=== PATIENT | male | born 1965 | race Caucasian/White ===

== ENCOUNTER 2023-09-24 10:28 | Outpatient (OUT) | payer OTHER, SELFPAY | END 2023-09-24 10:29 | disposition home or self-care (01) | LOC: WC 10:28 | PROVIDERS: PCP Nurse Practitioner; Visit Provider Podiatrist Foot & Ankle Surgery | DX: E11.40 Type 2 diabetes mellitus with diabetic neuropathy, unspecified (principal); L84 Corns and callosities | CPT/HCPCS: 11055 ==

== ENCOUNTER 2025-05-02 11:11 | Outpatient (OUT) | payer MEDICARE, SELFPAY ==
--- OUTSIDE RECORDS SUMMARY | 2025-04-24 10:30 | XMS_ITS | Encounter Summary ---
Author Organization [employer] tem Address [id number] [address] 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) Wound, open, foot with complication, left, initial encounter Procedures Triad Iqra Calderón APRN-CNP [address] [place] [address] Phone: tel: fax: Referral ID Status Reason Start Date Expiration Date V isits Requested Visits Authorized [id number] Pending Review 04/24/2025 04/24/2026 1 1 * Misc (Routine) - Pending Review Specialty Diagnoses / Procedures Referred By Contac t Referred To Contact Diagnoses 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) Wound, open, foot with complication, left, initial encounter Procedures Xeroform 4x4 Iqra Calderón APRN-ROSALIA [address] [place] [address] Phone: tel: fax: Referral ID Status Reason Start Date Expiration Date V isits Requested Visits Authorized [id number] Pending Review 04/24/2025 04/24/2026 1 1 Reason for Visit * Reason Comments Wound Check * Consultation (Routine) - Pending Review Specialty Diagnoses / Procedures Referred By Gume t Referred To Contact Wound Care Diagnoses Visit for wound check Lakshmi Figueroa APRN-CNP [address] [place] [address] Phone: tel: fax: [facility] [address] [place] [address] Phone: tel: fax: Referral ID Status Reason Start Date Expiration Date Visits Requested Visits Authorized [id number] Pending Review Specialty Services Required 03/04/2025 03/04/2026 1 1 Encounter Details Date Type Department Care Team (Late st Contact Info) Description 04/24/2025 10:30 AM EDT Office Visit [facility] [address] [place] [id number] Iqra Calderón, GRANT-MARINE MAMMAL TRAINER [address] [place] [address] Diabetic ulcer of right midfoot associated with type 2 diabetes mellitus, with muscle involvement without evidence of necrosis (CMS-HCC) (Primary Dx); 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 Twice a week 02/07/2021 How often do you get together with friends or re latives? Never 02/07/2021 How often do you attend gnosticist or anglican serv ices? Never 02/07/2021 Do you belong to any clubs o r organizations such as gnosticist groups, unions, fraternal or athletic groups, or school groups? No 02/07/2021 How often do you attend meet ings of the clubs or organizations you belong to? Never 02/07/2021 Are you , , di vorced, , never , or living with a partner? 02/07/2021 AUDIT-C Answer Date Recorded Q1: How often do you have a drink containing alc ohol? Monthly or less 02/07/2021 Average Number of Drinks Not on file 021 Q3: How often do you have si x or more drinks on one occasion? Never 02/07/2021 Overall Financial Resource Strain (CARDIA) Answe r Date Recorded How hard is it for you to pa y for the very basics like food, housing, medical care, and heating? Not very hard 02/07/2021 PHQ-2 Answer Date Recorded Total Score 0 02/07/2021 [facility] Answer Date Recorded Do you feel stress - tense, restless, nervous, or anxious, or unable to sleep at night because your mind is troubled all the time - these days? To some extent 02/07/2021 Exercise Vital Sign Answer Date Recorde d On average, how many days pe r week do you engage in moderate to strenuous exercise (like a brisk walk)? 0 days 02/07/2021 On average, how many minutes do you engage in exercise at this level? 0 min 02/07/2021 PRAPARE - Transportation Answer Date Re corded In the past 12 months, has l ack of transportation kept you from medical appointments or from getting medications? No 01/20 In the past 12 months, has l ack of transportation kept you from meetings, work, or from getting things needed for daily living? No 02/07/2021 Childcare Answer Date Recorded Do problems getting child ca re make it difficult for you to work or study? No 02/07/2021 Employment Answer Date Recorded Do you need help finding a l ocal career center and/or a training program? No 02/07/2021 Hunger Screening Answer Date Recorded Within the past 12 months we worried whether our food would run out before we got money to buy more. Never True 03/04/2025 Within the past 12 months th e food we bought just didn't last and we didn't have money to get more. Never True 03/04/2025 Purpose - Life Answer Date Recorded I have a purpose and direction in my life. Agree 02/07/2021 Sex and Gender Information Value Date Recorded Sex Assigned at Not on file Legal Sex Male 11:23 AM EDT Gender Identity Not on file Sexual Orientation Not on file documented as of this encounter Last Filed Vital Signs Vital Sign Reading Time Taken Comments Blood Pressure 116/81 04/24/2025 9:00 AM EDT Pulse 97 04/24/2025 9:00 AM EDT Temperature 36.5 C (97.7 F) 04/24/2025 9:00 AM EDT Respiratory Rate 16 04/24/2025 9:00 AM EDT Oxygen Saturation - - Inhaled Oxygen Concentration - - Weight - - Height - - Body Mass Index - - documented in this encounter Patient Instructions * Patient Instructions* Sulma Humphreys RN - 04/24/2025 10:30 AM EDT Wound Management Treatment Plan Wound Location(s): Right plantar foot HOW TO CARE FOR YOUR WOUND The following should be performed Daily and as needed. STEP 1: Cleanse wound with Soap and water, rinse well, and pat dry. Irrigate or rinse wound with NO IRRIGATION REQUIRED. STEP 2: Soak wound with Hypochlorous Acid (VASHE). For 5-10 minutes. STEP 3: Apply a thin layer of Triad barrier cream to red area around wound. Do not scrub Triad off, just apply a new layer. STEP 4: Cover wound with Xeroform gauze, then ABD (Abdominal) dressing, then Rolled gauze. STEP 6: Secure dressings with Ezequiel Wrap (Elastic Bandage) ACTIVITY: Avoid direct pressure to wound(s) at all times NUTRITION: High protein diet SKIN CARE: SWELLING CONTROL: Elevate legs whenever sitting to level of heart/hips or higher. 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 Wound Care Progress Note Patient: Rashel Rodriguez Jr. Date of : 1965 Chief Complaint: Right foot ulcer, follow up Subjective/HPI: Rashel is a 59 y.o. male who present to [facility] for evaluation of 1 ulcer(s) on theright plantar midfoot. Patient established with wound clinic 03/28/2025. Current wound care includes: Vashe soak, cover with Xeroform, secure with roll gauze. Patient is wearing a right tennis shoe, Patient presents with a prosthetic of the left foot. 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 Eric Stephenson, [facility]. Patient was seen in the emergency room 03/04/2025 for concerns of infection of the right foot. Patient was given antibiotics doxycycline. X-ray of the right foot impression no soft tissue gas or evidence of osteomyelitis. 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 Brooke Measurable wound changes: decrease in wound measurement, remains with heavy callus build up 0.5 cm decrease in RLE calf circumference Patient accompanied by: Self, ambulatory Nutritional screen shows patient does take in three servings of protein per day. Patient does deny fever, chills, sweats or other symptoms of infection. No current ATB ordered. Completed Augmentin as prescribed. Wound culture 03/04/2025 omponent Ref Range & Units (hover) Gram Stain Result 0 WHITE BLOOD CELLS/LPF 0 SQUAMOUS EPITHELIAL CELLS/LPF MANY GRAM POSITIVE COCCI IN CLUSTERS IN CHAINS Culture MANY STREPTOCOCCUS AGALACTIAE (GROUP B) Abnormal MANY STAPHYLOCOCCUS AUREUS METHICILLIN RESISTANT Abnormal MANY STAPHYLOCOCCUS AUREUS METHICILLIN RESISTANT VARIANT Abnormal Today's reported Blood sugar: 334, patient was given a glucometer at last wound care appointment Lab Results Component Value Date HGBA1C 11.3 (H) 05/01/2024 HGBA1C 9.0 (H) 07/20/2023 Contributing comorbid conditions: Poorly controlled diabetes, abnormal gait, history of right and left foot amputation. Labs/Imaging/Cardiovascular: Patient's chart was reviewed for all available supporting documentation, laboratory results and radiographic examination including external notes. Patient Active Problem List Diagnosis Sepsis ([facility]) Diabetic ulcer of right midfoot associated with type 2 diabetes mellitus, with muscle involvement without evidence of necrosis ([facility]) Chronic osteomyelitis of left foot with draining sinus ([facility]) Wound, open, foot with complication, left, initial encounter Charcot's joint of foot, left Diabetes mellitus ([facility]) Hyperlipidemia Osteomyelitis of left foot ([facility]) Ulcer of right foot with fat layer exposed ([facility]) History of transmetatarsal amputation of right foot ([facility]) 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 ([facility]) Unstable ankle, right Past Medical History: Diagnosis Date Acid reflux Anemia Arthritis Cataract right lens implant Charcot's joint 02/2021 left foot Chronic osteomyelitis of foot ([facility]) 02/2021 left/with draining sinus Dental disease poor repair Diabetes mellitus type 2, controlled ([facility]) 1999 Hyperlipidemia Hypertension PICC (peripherally inserted central catheter) flush 02/2021 Visual impairment glasses Past Surgical History: Procedure Laterality Date AMPUTATION SYMES LOWER EXTREMITY Left 04/18/2021 Performed by Ghulam Brooke DPM at [facility] AMPUTATION TOEMID FOOT OSTEOTOMY ACHILLES TENOTOMY Left 02/07/2021 Performed by Ghulam Brooke DPM at [facility] ASPIRATION BONE MARROW BIOPSY BONE MARROW (BONE BIOPSY) Left 03/24/2021 Performed by Ghulam Brooke DPM at [facility] CLOSURE WOUND LOWER EXTREMITY (DELAYED PRIMARY CLOSURE) Left 03/24/2021 Performed by Ghulma Brooke DPM at [facility] DEBRIDEMENT FOOT/ANKLE Left 02/07/2021 Performed by Ghulam Brooke DPM at [facility] EXOSTECTOMY FOOT Right 09/01/2021 Performed by Ghulam Brooke DPM at [facility] PHACO KELMAN I IMPLANT INTRAOCULAR LENS Right 12/28/2019 Performed by Debra Trejo MD at [facility] REMOVAL HARDWARE FOOT/TOE, AND REMOVAL ANTIBIOTIC SPACER Left 03/24/2021 Performed by Ghulam Brooke DPM at [facility] SURGERY TONSILLECTOMY as child Social Drivers of Health Food Insecurity: No Food Insecurity (03/04/2025) Hunger Screening Food Insecurity - Worry: Never True Food Insecurity - Inability: Never True Housing Instability: Low Risk (01/06/2024) Received from [facility] Housing Stability Vital Sign Unable to Pay for Housing in the Last Year: No Number of Places Lived in the Last Year: 1 Unstable Housing in the Last Year: No Transportation Needs: Unmet Transportation Needs (01/06/2024) Received from [facility] PRAPARE - Transportation Lack of Transportation (Medical): Yes Lack of Transportation (Non-Medical): Yes Utility Difficulties: Not on file Interpersonal Safety: Unknown (01/13/2024) Received from [facility] Safety & Environment Fear of Current or Ex-Partner: Not on file Emotionally Abused: Not on file Physically Abused: Not on file Sexually Abused: Not on file Physically or Sexually Abused: Not on file Financial Resource Strain: Low Risk (01/06/2024) Received from [facility] Overall Financial Resource Strain (CARDIA) Difficulty of Paying Living Expenses: Not hard at all Childcare: Low Risk (02/07/2021) Childcare Childcare: No Employment: Low Risk (02/07/2021) Employment Employment: No Purpose - Life: Low Risk (02/07/2021) Purpose - Life Purpose and direction in life: Agree Depression: Not at risk (03/13/2024) Received from [facility] PHQ-2 Patient Health Questionnaire-2 Score: 0 Alcohol Use: Not At Risk (01/06/2024) Received from [facility] AUDIT-C Frequency of Alcohol Consumption: Monthly or less Average Number of Drinks: Patient does not drink Frequency of Binge Drinking: Never Tobacco Use: Low Risk (04/11/2025) Patient History Smoking Tobacco Use: Never Smokeless Tobacco Use: Never Passive Exposure: Not on file Social Connections: Socially Isolated (01/06/2024) Received from [facility] Social Connection and Isolation Panel [NHANES] Frequency of Communication with Friends and Family: Never Frequency of Social Gatherings with Friends and Family: Never Attends Moravian Services: Never Active Member of Clubs or Organizations: Yes Attends Club or Organization Meetings: Never Marital Status: Physical Activity: Inactive (01/06/2024) Received from [facility] Exercise Vital Sign Days of Exercise per Week: 0 days Minutes of Exercise per Session: 0 min Stress: Stress Concern Present (01/06/2024) Received from [facility] [employer] [place] [facility] [employer] [facility] - Occupational Stress Questionnaire Feeling of Stress : Very much Current Outpatient Medications Medication Sig Dispense Refill acetaminophen (TYLENOL) 500 mg tablet Take 2 tablets (1,000 mg total) by mouth every 6 (six) hours as needed Indications: headache. atorvastatin (LIPITOR) 40 mg tablet Take 1 tablet (40 mg total) by mouth daily with breakfast Indications: excessive fat in the blood. dorzolamide (TRUSOPT) 2 % ophthalmic solution Administer 1 drop to the right eye in the morning and1 drop before bedtime. Indications: increased pressure in the eye. hydroCHLOROthiazide (HYDRODIURIL) 12.5 mg tablet Take 1 tablet (12.5 mg total) by mouth daily. insulin aspart U-100 (NovoLOG) 100 unit/mL injection Inject under the skin. insulin glargine (LANTUS) 100 unit/mL injection Inject 0.28 mL (28 Units total) under the skin nightly. insulin lispro (ADMELOG SOLOSTAR U-100 INSULIN) 100 unit/mL insulin pen 70-150 0 units 151-174 2 units 175-199 4 units 200-224 6 units 225-249 8 units 250-274 10 units 275-299 12 units Greater than 300 Administer 14 units and call the provider. 15 mL 0 lisinopriL (PRINIVIL,ZESTRIL) 10 mg tablet Take 1 tablet (10 mg total) by mouth daily with breakfast Indications: high blood pressure. metFORMIN (GLUCOPHAGE) 1000 mg tablet Take 1 tablet (1,000 mg total) by mouth in the morning and 1 tablet (1,000 mg total) in the evening. Take with meals. Indications: type 2 diabetes mellitus. omeprazole (PriLOSEC) 40 mg capsule Take 1 capsule (40 mg total) by mouth in the morning. pantoprazole (PROTONIX) 40 mg EC tablet Take 1 tablet (40 mg total) by mouth in the morning. TRUE METRIX GLUCOSE TEST STRIP strip No current facility-administered medications for this visit. Allergies Allergen Reactions Bee Venom Protein (Honey Bee) Other (See Comments) Local swelling The following portions of the patient's history were reviewed and updated as appropriate: allergies, current medications, past family history, past medical history, past social history, past surgicalhistory, problem list, and medication reconciliation was completed including current medication andpost discharge medication. PAIN: Pain Scale 0/10: 0 Review of Systems Constitutional: Negative. Negative for activity change, appetite change and fever. HENT: Negative. Negative for trouble swallowing. Eyes: Positive for visual disturbance. Respiratory: Negative. Negative for cough, shortness of breath and wheezing. Cardiovascular: Negative. Negative for chest pain, palpitations and leg swelling. Gastrointestinal: Negative. Negative for abdominal distention, nausea and vomiting. Genitourinary: Negative. Negative for dysuria, frequency and urgency. Musculoskeletal: Positive for arthralgias and gait problem. Negative for neck stiffness. Skin: Positive for color change and wound. Neurological: Positive for headaches. Negative for numbness. Objective: Vitals: 04/24/25 0900 BP: 116/81 Pulse: 97 Resp: 16 Temp: 36.5 ??C (97.7 ??F) Physical Exam Vitals and nursing note reviewed. Constitutional: Appearance: He is well-developed. HENT: Head: Normocephalic and atraumatic. Cardiovascular: Rate and Rhythm: Normal rate and regular rhythm. Pulses: Dorsalis pedis pulses are 2+ on the right side. Posterior tibial pulses are 2+ on the right side. Heart sounds: Normal heart sounds. No murmur heard. No gallop. Pulmonary: Effort: Pulmonary effort is normal. Breath sounds: Normal breath sounds. No wheezing or rales. Musculoskeletal: Cervical back: Normal range of motion. Right foot: Decreased range of motion. Left foot: Decreased range of motion. Comments: Unstable right ankle New onset right ankle erythema Feet: Right foot: Skin integrity: Callus and fissure present. Comments: Left foot amputated, prothesis in place Right foot TMA Skin: General: Skin is warm and dry. Neurological: Mental Status: He is alert and oriented to person, place, and time. Wound Assessment: Wound 03/28/25 1 Diabetic Ulcer Foot Right;Plantar (Active) Wound Image Pre debridement Post debridement 04/24/25 1100 Site Assessment Fallon;Red 04/24/25 1100 Ricardo-wound Assessment Callous;Dry 04/24/25 1100 Wound Length (cm) 3.3 cm 04/24/25 1100 Wound Width (cm) 2.8 cm 04/24/25 1100 Wound Surface Area (cm^2) 7.26 cm^2 04/24/25 1100 Wound Depth (cm) 0.2 cm 04/24/25 1100 Wound Volume (cm^3) 0.968 cm^3 04/24/25 1100 Change in Wound Size % 29.99 04/24/25 1100 Drainage Description Sanguineous 04/24/251099 Drainage Amount Small 04/24/25 1100 Debridement Performed? Y 04/24/25 1100 Type of Debridement Sharp to Subcutaneous 04/24/25 1100 Wound Bed Granulation (%) 100% 04/24/25 1000 Discussion: Debridement is the removal of foreign material and/or devitalized tissue until healthy tissue is exposed. Risks, benefits and alternatives were discussed with the patient. We discussed possible complications, including infection and bleeding. Written consent was obtained prior to the procedure. Timeout procedure completed. Goal of debridement includes: removal of devitalized tissue, decrease risk of infection, promote wound healing and prevent further complications. Debridement Performed by: SCOTT Sawyer Authorized by: SCOTT Sawyer Associated wounds: Wound 03/28/25 1 Diabetic Ulcer Foot Right;Plantar Consent: Consent obtained: Verbal and written Consent given by: Patient Risks discussed: Yes Debridement Details: Performed by: OVEN TECHNICIAN Type: Sharp Level: Subcutaneous Tissue, Devitalized tissue and other material debrided: Subcutaneous tissue, fibrin, biofilm and callus Anesthesia administration: topical Anesthesia: EMLA Total Surface Area Debrided cm^2: 7.26 Specimen Taken: None Instrument: Curette Amount of bleeding: Small Bleeding Control: Pressure Response to treatment: Procedure was tolerated well Tissue Applied?: No Assessment/Plan/Education: 1. Diabetic ulcer of right midfoot associated with type 2 diabetes mellitus, with muscle involvement without evidence of necrosis (CMS-HCC) 2. 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 Soak for at least 5 minutes. B) Remove saturated gauze and firmly wipe the wound bed with the soaked gauze. C) After the wound has been cleaned, gently pat dry the wound and ricardo wound skin are and apply dressing as ordered. Cover wound including callus with Xeroform Cover with ABD pad for protection Secure with roll gauze Change daily Recommend patient continue to follow with podiatry Referral to [facility]PC for properly fitting and off-loading shoe to right foot Patient instructed in diabetic foot ulcer care to right and foot. Patient verbalize ability to perform wound care. Patient verbalized understanding. We will continue to follow closely to avoid any complications or infection. Our short term goal is wound compliance. Our jail goal is wound closure. The patient was taught to watch for S/S of infection (redness, pus, pain, increased swelling, chills or fever) and to call the PCP or wound care clinic if such occurs. The patient was educated on offloading the area by avoiding direct pressure to the wound bed. Education as well as the pathophysiology of the disease process was provided on infection, edema, necrotic tissue and its relationship tononhealing wounds. Education was also provided on treatment plan. Patient verbalized understanding. Follow up wound clinic in 2 weeks. Instructed to contact wound clinic/PCP or ER should symptoms worsen. Total time spent was 20 minutes: Preparing to see the patient (e.g., review of tests) Obtaining and/or reviewing separately obtained history Performing a medically appropriate examination and/or evaluation Counseling and educating the patient/family/caregiver Ordering medications, tests, or procedures Documenting clinical information in the electronic or other health record - SCOTT SAWYER 04/24/25 11:51 AM Iqra Calderón APRN, ROSALIA, ALBARO, NAVNEET [facility]:[phone] SCOTT Sawyer 03/28/25 1311 SCOTT Sawyer 03/28/25 1619 SCOTT Sawyer 04/11/25 1218 SCOTT Sawyer 04/24/25 1202 documented in this encounter Plan of Treatment Upcoming Encounters Date Type Department Care Team (Late st Contact Info) Description 05/10/2025 9:30 AM EDT Clinical Support [facility] [address] [place] [address] [place] [address] Jessee Molina, [address] [place] [address], [facility], [place] [address] documented as of this encounter Goals Goal Patient Goal Type Associated Problems Recent Progress Patient-Stated? 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 us Iqra CHAVEZ NURSING COMMUNICATION Fin al Result Performing Organization Address [facility] de Phone Number MANUALLY TRANSCRIBED RESULTS * Xeroform 4x4 (04/24/2025 11:26 AM EDT) Narrative MANUALLY TRANSCRIBED RESULTS - 04/24/2025 11:26 AM EDT APPLIED IN CLINIC TODAY. us Iqra CHAVEZ NURSING COMMUNICATION Fin al Result Performing Organization Address [facility] Co de Phone Number MANUALLY TRANSCRIBED RESULTS * Debridement (04/24/2025 10:30 AM EDT) Narrative MANUALLY TRANSCRIBED RESULTS - 04/24/2025 10:30 AM EDT SCOTT Sawyer 04/24/2025 12:02 PM Debridement Performed by: SCOTT Sawyer Authorized by: SCOTT Sawyer Associated wounds: Wound 03/28/25 1 Diabetic Ulcer Foot Right;Plantar Consent: Consent obtained: Verbal and written Consent given by: Patient Risks discussed: Yes Debridement Details: Performed by: OVEN TECHNICIAN Type: Sharp Level: Subcutaneous Tissue, Devitalized tissue and other material debrided: Subcutaneous tissue, fibrin, biofilm and callus Anesthesia administration: topical Anesthesia: EMLA Total Surface Area Debrided cm^2: 7.26 Specimen Taken: None Instrument: Curette Amount of bleeding: Small Bleeding Control: Pressure Response to treatment: Procedure was tolerated well Tissue Applied?: No Iqra Calderón APRN-ROSALIA PROCEDURE/MINOR SURGICAL ORDERABLES Final Result MANUALLY TRANSCRIBED RESULTS documented in this encounter Visit Diagnoses Diagnosis Diabetic ulcer of right midfoot associated with type 2 diabetes mellitus, 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
--- OUTSIDE RECORDS SUMMARY | 2025-04-24 23:59 | XMS_ITS | Encounter Summary ---
Author Organization [facility] Address [facility] [place] [address] Care Team Providers Care Internal Affairs Investigator Name Role Phone Unavailable Primary Care Provider Unavailabl e Source Comments In the event this information is protected by the Federal Confidentiality of Alcohol and Drug AbusePatient Records regulations: The Federal rules restrict any use of the information to criminally investigate or prosecute any alcohol or drug abuse patient.[facility] Encounter Details Date Type Department Care Team (Late st Contact Info) Description 04/25/2025 11:59 PM EDT Anesthesia Event [facility] [place] [id number] Ronaldo Draper DO [place], [place] [id number] Anesthesia Record Procedure Summary Procedure Name Responsible Anesthesiologist Anesthesia Start Time Anesthesia Stop Time EGD Events No events on file. Meds * Agents No agents on file. * Blood No blood administrations on file. Lines, Drains, and Airways No LDAs on file. documented in this encounter Social History Tobacco Use Types Packs/Day Years Used Date Smoking Tobacco: Never Passive Smoke Exposure: Never Smokeless Tobacco: Never Area Deprivation Index Answer Date Diego rded National Score (1-100), lower number is lower ri 87 10/24/2024 State Score (1-10), lower number is lower risk 8 10/24/2024 Data from: https://www.neighborhoodatlas.medicine.[facility].edu/. Last address used for calculation [address] 10/24/2024 Sex and Gender Information Value Date Recorded Sex Assigned at Not on file Legal Sex Male 3:23 PM EDT Gender Identity Not on file Sexual Orientation Not on file documented as of this encounter Plan of Treatment Not on file documented as of this encounter Visit Diagnoses Not on filedocumented in this encounter
--- OUTSIDE RECORDS SUMMARY | 2025-04-26 14:00 | XMS_ITS | Encounter Summary ---
Author Organization [employer] [facility] tem Address [id number] [address] [place] [address] Care Team Providers Care Electro Mechanical Technician Name Role Phone Jessee Molina DO Primary Care Provider [phone] Reason for Visit * Reason Comments Establish Care * Consultation (Routine) - Pending Review Specialty Diagnoses / Procedures Referred By Gume shelley Referred To Contact Internal Medicine Diagnoses Visit for wound check Hyperglycemia Lakshmi Figueroa, BUCKLE SEWER MACHINE-ORACLE BUSINESS ANALYST [address] [place] [address] Phone: tel: fax: Vahe Solares MD [address] [place] [id number] Phone: tel: fax: Referral ID Status Reason Start Date Expiration Date Visits Requested Visits Authorized [id number] Pending Review Specialty Services Required 03/04/2025 03/04/2026 1 1 Encounter Details Date Type Department Care Team (Late st Contact Info) Description 04/26/2025 2:00 PM EDT Office Visit [facility] [address] [place] [address] [place] [address] Jessee Molina DO [address] [place] [address], [facility], [facility] [place] [address] Benign essential HTN (Primary Dx); Type 2 diabetes mellitus with foot ulcer, with long-term current use of insulin ([facility]); Chronic midline low back pain without sciatica; Fatty liver disease, nonalcoholic; Visit for wound check; Hyperglycemia; Gastroesophageal reflux disease, unspecified whether esophagitis present Social History Tobacco Use Types Packs/Day Years Used Date Smoking Tobacco: Never Smokeless Tobacco: Never Alcohol Use Standard Drinks/Week Comments Not Currently 0 (1 standard drink = 0.6 oz pur e alcohol) quit 2005 Social Connection and Isolation Panel [NHANES] A nswer Date Recorded In a typical week, how many times do you talk on the phone with family, friends, or neighbors? Twice a week 02/07/2021 How often do you get together with friends or re latives? Never 02/07/2021 How often do you attend latter-day or hinduism serv ices? Never 02/07/2021 Do you belong to any clubs o r organizations such as latter-day groups, unions, fraternal or athletic groups, or [...] 02/07/2021 PHQ-2 Answer Date Recorded Total Score 7 04/26/2025 [place] of Occupat ional Health - Occupational Stress Questionnaire Answer Date Recorded [...] Recorded Do you need help finding a [employer] center and/or a training program? No 02/07/2021 Hunger Screening Answer Date Recorded Within the past 12 months we worried whether our food would run out before we got money to buy more. Never True 04/26/2025 Within the past 12 months th e food we bought just didn't last and we didn't have money to get more. Never True 04/26/2025 Purpose - Life Answer Date Recorded I have a purpose and direction in my life. Agree 02/07/2021 Sex and Gender Information Value Date Recorded Sex Assigned at Not on file Legal Sex Male 11:23 AM EDT Gender Identity Not on file Sexual Orientation Not on file documented as of this encounter Last Filed Vital Signs Vital Sign Reading Time Taken Comments Blood Pressure 118/82 04/26/2025 2:12 PM EDT Pulse 95 04/26/2025 2:12 PM EDT Temperature 36.7 C (98.1 F) 04/26/2025 2:12 PM EDT Respiratory Rate - - Oxygen Saturation 96% 04/26/2025 2:12 PM EDT Inhaled Oxygen Concentration - - Weight 115.2 kg (254 lb) 04/26/2025 2:12 PM EDT Height 174 cm (5' 8.5 ) 04/26/2025 2:12 PM EDT Body Mass Index 38.05 04/26/2025 2:12 PM EDT documented in this encounter Patient Instructions * Patient Instructions* Jessee Molina, DO - 04/26/2025 2:00 PM EDT Get blood work and x-ray of lumbar spine completed before next visit. Follow instructions for medications. Check blood sugars up to 4 times per day and use short acting insulin as directed. Take Lantus 30 units daily documented in this encounter Progress Notes * Jessee Molina DO - 04/26/2025 2:00 PM EDT Images from the original note were not included. [facility]LY [facility], [facility] [facility] [place] [address] Patient: Rashel Rodriguez Jr. Date of : 1965 Encounter Date: 04/26/2025 Subjective: Chief Complaint Chief Complaint Patient presents with Establish Care History of Present Illness Rashel Rodriguez Jr. is a 59 y.o. male, NEW patient, that presents to the office to establish care History provided by patient Diabetes He presents for his follow-up diabetic visit. He has type 2 (Diagnosed about 30 years ago) diabetesmellitus. Disease course: He reports that last HbA1c was 9.6%. Current diabetic treatments: Currenttreatment: Novolin N 36 units twice daily. Home blood sugar record trend: Has been unable to test blood sugars as he does not have test strips. Back Pain This is a chronic (Has been present since elementary school after being jumed on by larger kid.) problem. The pain is present in the lumbar spine. Radiates to: Radiates to gluteal area bilaterally. Stiffness is present: Denies any stiffness in lower back. Pertinent negatives include no bladder incontinence, bowel incontinence, leg pain (Occasionally will have discomfort in leg when he is not ableto apply pressure without weakness develops), numbness, perianal numbness or tingling. (He states that having to sit regularly with walking as it now takes him 2 hours to mow his grass where previously took 20 minutes. ) Review of Systems Review of Systems Gastrointestinal: Negative for bowel incontinence. Waking up in the morning with vomiting of undigested food and/or liquids and occasionally with dry heaves Genitourinary: Negative for bladder incontinence. Musculoskeletal: Positive for back pain. Neurological: Negative for tingling and numbness. Vital Signs BP 118/82 (BP Site: Left Arm, BP Postition: Sitting) Pulse 95 Temp 36.7 ??C (98.1 ??F) (Oral) Ht 174 cm (5' 8.5 ) Wt 115.2 kg (254 lb) SpO2 96% BMI 38.05 kg/m?? Physical Exam Physical Exam Cardiovascular: Rate and Rhythm: Normal rate and regular rhythm. Pulses: Posterior tibial pulses are 2+ on the right side. Heart sounds: No murmur heard. Pulmonary: Effort: No accessory muscle usage or respiratory distress. Breath sounds: Normal breath sounds. No decreased breath sounds, wheezing, rhonchi or rales. Musculoskeletal: Right lower leg: No edema. Right foot: Deformity (amputation of toes on right foot) present. Left Lower Extremity: Left leg is amputated below knee. Past Medical, Family, Surgery and Social History Past Medical History: Diagnosis Date Acid reflux Anemia Arthritis Cataract right lens implant Charcot's joint 02/2021 left foot Chronic osteomyelitis of foot ([facility] 02/2021 left/with draining sinus Dental disease poor repair Diabetes mellitus type 2, controlled ([facility]) 1999 Hyperlipidemia Hypertension PICC (peripherally inserted central catheter) flush 02/2021 Visual impairment glasses Past Surgical History: Procedure Laterality Date AMPUTATION SYMES LOWER EXTREMITY Left 04/18/2021 Performed by Ghulam Brooke DPM at [facility] AMPUTATION TOEMID FOOT OSTEOTOMY ACHILLES TENOTOMY Left 02/07/2021 Performed by Ghulam Brooke DPM at [facility] ASPIRATION BONE MARROW BIOPSY BONE MARROW (BONE BIOPSY) Left 03/24/2021 Performed by Ghulam Brooke DPM at [facility] CLOSURE WOUND LOWER EXTREMITY (DELAYED PRIMARY CLOSURE) Left 03/24/2021 Performed by Ghulam Brooke DPM at [facility] DEBRIDEMENT FOOT/ANKLE Left 02/07/2021 Performed by Ghulam Brooke DPM at [facility] EXOSTECTOMY FOOT Right 09/01/2021 Performed by Ghulam Brooke DPM at [facility] PHACO KELMAN I IMPLANT INTRAOCULAR LENS Right 12/28/2019 Performed by Debra Trejo MD at [facility] REMOVAL HARDWARE FOOT/TOE, AND REMOVAL ANTIBIOTIC SPACER Left 03/24/2021 Performed by Ghulam Brooke DPM at [facility] TONSILLECTOMY as child Family History Problem Relation Age of Onset Diabetes Mother Diabetes Father Hearing loss Father Stroke Father Coronary artery disease Father Diabetes Sister Diabetes Sister Cancer Maternal Grandfather Anesthesia problems Neg Hx Bleeding Disorder Neg Hx Clotting disorder Neg Hx Prostate cancer Neg Hx Colon cancer Neg Hx Social History Socioeconomic History Marital status: Single Spouse name: Not on file Number of children: Not on file Years of education: Not on file Highest education level: Not on file Occupational History Not on file Tobacco Use Smoking status: Never Smokeless tobacco: Never Vaping Use Vaping status: Never Used Substance and Sexual Activity Alcohol use: Not Currently Comment: quit 2006 Drug use: Never Sexual activity: Defer Other Topics Concern Not on file Social History Narrative Lives alone in a one story home with five steps into the home and 10 to the basement. Worked at [employer]. Now disabled Social Drivers of Health Financial Resource Strain: Low Risk (01/06/2024) Received from [facility] Overall Financial Resource Strain (CARDIA) Difficulty of Paying Living Expenses: Not hard at all Food Insecurity: No Food Insecurity (04/26/2025) Hunger Screening Food Insecurity - Worry: Never True Food Insecurity - Inability: Never True Transportation Needs: Unmet Transportation Needs (01/06/2024) Received from [facility] PRAPARE - Transportation Lack of Transportation (Medical): Yes Lack of Transportation (Non-Medical): Yes Physical Activity: Inactive (01/06/2024) Received from [facility] Exercise Vital Sign Days of Exercise per Week: 0 days Minutes of Exercise per Session: 0 min Stress: Stress Concern Present (01/06/2024) Received from [facility] [place] [facility] [employer] [facility] - Occupational Stress Questionnaire Feeling of Stress : Very much Social Connections: Socially Isolated (01/06/2024) Received from [facility] Social Connection and Isolation Panel [NHANES] Frequency of Communication with Friends and Family: Never Frequency of Social Gatherings with Friends and Family: Never Attends Temple Services: Never Active Member of Clubs or Organizations: Yes Attends Club or Organization Meetings: Never Marital Status: Interpersonal Safety: Unknown (01/13/2024) Received from [facility] [place] [facility] Fear of Current or Ex-Partner: Not on file Emotionally Abused: Not on file Physically Abused: Not on file Sexually Abused: Not on file Physically or Sexually Abused: Not on file Housing Instability: Low Risk (01/06/2024) Received from [facility] Housing Stability Vital Sign Unable to Pay for Housing in the Last Year: No Number of Places Lived in the Last Year: 1 Unstable Housing in the Last Year: No Allergies and Current Medications Allergies Allergen Reactions Bee Venom Protein (Honey Bee) Other (See Comments) Local swelling Current Outpatient Medications on File Prior to Visit Medication Sig cholecalciferol, vitamin D3, 2,000 units capsule Take 1 capsule (2,000 Units total) by mouth in themorning. dorzolamide (TRUSOPT) 2 % ophthalmic solution Administer 1 drop to the right eye in the morning and1 drop before bedtime. Indications: increased pressure in the eye. latanoprost (XALATAN) 0.005 % ophthalmic solution Administer 1 drop into the left eye once daily atbedtime. INSTILL 1 DROP INTO LEFT EYE AT BEDTIME No current facility-administered medications on file prior to visit. Labs and Imaging Lab Results Component Value Date WBC 10.1 03/04/2025 HGB 13.7 03/04/2025 HCT 40.0 03/04/2025 PLT 334 03/04/2025 CHOL 152 05/01/2024 TRIG 291 (H) 05/01/2024 HDL 32 (L) 05/01/2024 ALT 15 03/04/2025 AST 18 03/04/2025 K 3.6 03/04/2025 CL 102 03/04/2025 CREATININE 1.20 03/04/2025 BUN 18 03/04/2025 CO2 23 03/04/2025 TSH 1.40 01/28/2022 INR 1.3 (H) 11/05/2020 HGBA1C 11.3 (H) 05/01/2024 MICROALBUR 1.8 05/01/2024 X-ray foot right minimum 3 views XR FOOT RT MIN 3 VWS CLINICAL HISTORY: COMPARISON: 05/20/2021 obtained. FINDINGS: Transmetatarsal amputation. No significant swelling of the stomach no soft tissue air no radio opaque stenosis seen or periosteal reaction to suggest osteomyelitis. Calcaneal spurring. Essentially unchanged since previous exam IMPRESSION: * Transmetatarsal amputation. Unchanged since prior study. No soft tissue gas or plain radiographicchanges of osteomyelitis Finalized by Du Hawthorne MD on 03/04/2025 10:59 AM Assessment/Plan: 1. Type 2 diabetes mellitus with foot ulcer, with long-term current use of insulin ([facility]) - TRUE METRIX GLUCOSE TEST STRIP strip; 1 strip by other route 4 (four) times a day before meals and nightly. Dispense: 200 strip; Refill: 5 - insulin glargine (LANTUS) 100 unit/mL injection; Inject 0.3 mL (30 Units total) under the skin nightly. Dispense: 10 mL; Refill: 1 - lisinopriL (PRINIVIL,ZESTRIL) 10 mg tablet; Take 1 tablet (10 mg total) by mouth daily with breakfast for 90 days Indications: high blood pressure. Dispense: 90 tablet; Refill: 0 - insulin lispro (ADMELOG SOLOSTAR U-100 INSULIN) 100 unit/mL insulin pen; 70- 150 0 units 151-174 2units 175-199 4 units 200-224 6 units 225-249 8 units 250- 274 10 units 275-299 12 units 300-350 14 units >350 16 units and call provider Dispense: 15 mL; Refill: 0 - atorvastatin (LIPITOR) 40 mg tablet; Take 1 tablet (40 mg total) by mouth daily with breakfast for 360 days Indications: excessive fat in the blood. Dispense: 90 tablet; Refill: 3 - pen needle, diabetic 29 gauge x 15/32 needle; 1 Pen Needle by miscellaneous route in the morningand 1 Pen Needle at noon and 1 Pen Needle in the evening and 1 Pen Needle before bedtime. Dispense:100 each; Refill: 3 - Comprehensive metabolic panel; Future - CBC auto differential; Future - Hemoglobin A1c; Future 2. Chronic midline low back pain without sciatica - X-ray spine lumbar complete including flexion and extension 6+ views; Future 3. Benign essential HTN - lisinopriL (PRINIVIL,ZESTRIL) 10 mg tablet; Take 1 tablet (10 mg total) by mouth daily with breakfast for 90 days Indications: high blood pressure. Dispense: 90 tablet; Refill: 0 - hydroCHLOROthiazide (HYDRODIURIL) 12.5 mg tablet; Take 1 tablet (12.5 mg total) by mouth daily. Dispense: 90 tablet; Refill: 0 4. Fatty liver disease, nonalcoholic - Comprehensive metabolic panel; Future 5. Visit for wound check - Ambulatory referral to Internal Medicine (Non-[facility]) 6. Hyperglycemia - Ambulatory referral to Internal Medicine (Non-[facility]) 7. Gastroesophageal reflux disease, unspecified whether esophagitis present - pantoprazole (PROTONIX) 40 mg EC tablet; Take 1 tablet (40 mg total) by mouth in the morning. Dispense: 90 tablet; Refill: 0 Fatty liver disease, nonalcoholic Ordered lab work including comprehensive metabolic panel to evaluate for level of transaminase elevation Benign essential HTN Blood pressure today in normal range. Patient denies any symptoms. Continue with hydrochlorothiazide 12.5 mg daily, lisinopril 10 mg daily. Diabetes mellitus ([facility]) Last hemoglobin A1c from April 01, 2025 was 11%. Continue with insulin glargine 30 units nightly, insulin lispro sliding scale coverage before meals. Monitor blood sugars before meals. Chronic midline low back pain without sciatica Ordered x-rays of lumbar spine 6 views including flexion and extension views. Patient Instructions Get blood work and x-ray of lumbar spine completed before next visit. Follow instructions for medications. Check blood sugars up to 4 times per day and use short acting insulin as directed. Take Lantus 30 units daily Follow-up: 1 to 2 weeks diabetes/back pain follow-up - Jessee Molina DO 04/27/25 9:18 PM documented in this encounter Miscellaneous Notes * Assessment & Plan Note - Jessee Molina DO - 04/27/2025 9:18 PM EDT Associated Problem(s): Chronic midline low back pain without sciatica Ordered x-rays of lumbar spine 6 views including flexion and extension views. * Assessment & Plan Note - Jessee Molina DO - 04/27/2025 9:16 PM EDT Associated Problem(s): Diabetes mellitus ([facility]) Last hemoglobin A1c from April 01, 2025 was 11%. Continue with insulin glargine 30 units nightly, insulin lispro sliding scale coverage before meals. Monitor blood sugars before meals. * Assessment & Plan Note - Jessee Molina DO - 04/27/2025 9:14 PM EDT Associated Problem(s): Benign essential HTN Blood pressure today in normal range. Patient denies any symptoms. Continue with hydrochlorothiazide 12.5 mg daily, lisinopril 10 mg daily. * Assessment & Plan Note - Jessee Molina DO - 04/27/2025 9:13 PM EDT Associated Problem(s): Fatty liver disease, nonalcoholic Ordered lab work including comprehensive metabolic panel to evaluate for level of transaminase elevation documented in this encounter Plan of Treatment Upcoming Encounters Date Type Department Care Team (Late st Contact Info) Description 05/10/2025 9:30 AM EDT Clinical Support [facility] [address] [place] [phone] Jessee Molina DO [address] [facility], [place] [address] Scheduled Orders Name Type Priority Associated Diagnoses Orde r Schedule X-ray spine lumbar complete including flexion and extension 6+ views Imaging Routine Chronic midline low back pain without sciatica Expected: 04/26/2025, Expires: 04/26/2026 Comprehensive metabolic panel Lab Routine Type 2 diabetes mellitus with foot ulcer, with long-term current use of insulin ([facility]) Fatty liver disease, nonalcoholic 1 Occurrences starting 04/26/2025 until 04/26/2026 CBC auto differential Lab Routine Type 2 diabetes mellitus with foot ulcer, with long-term current use of insulin ([facility]) 1 Occurrences starting 04/26/2025 until 04/26/2026 Hemoglobin A1c Lab Routine Type 2 diabetes mellitus with foot ulcer, with long-term current use of insulin ([facility]) 1 Occurrences starting 04/26/2025 until 04/26/2026 documented as of this encounter Goals Goal Patient Goal Type Associated Problems Recent Progress Patient-Stated? Author <enter goal here> General Yes Yulia Ocasio, RN Note: Evaluation of progress towards goal: mo retirement facility documented as of this encounter Visit Diagnoses Diagnosis Benign essential HTN- Primary Type 2 diabetes mellitus with foot ulcer, with long-term current use of insulin ([facility]) Chronic midline low back pain without sciatica Fatty liver disease, nonalcoholic Visit for wound check Hyperglycemia Other abnormal glucose Gastroesophageal reflux disease, unspecified whether esophagitis present documented in this encounter Additional Health Concerns Assessment Noted Time PHQ-9 Depression Total Score: 7 04/26/20 25 2:06 PM EDT documented as of this encounter Care Teams Electro Mechanical Technician Relationship Specialty Start Date End Date Jessee Molina DO [address] [place] [address], [place] [address] PCP - General Family Medicine 04/26/25 documented as of this encounter
--- OUTSIDE RECORDS SUMMARY | 2025-05-02 11:14 | XMS_ITS | Encounter Summary ---
Author Organization [facility] tem Address [id number] [address] [place] [address] Care Team Providers Care Planning Lead Name Role Phone CameliaradhajesiMarilee Brown MARKETING DATA SPECIALIST-RESOLUTION ANALYST Primary Care Provider Encounter Details Date Type Department Care Team (Latest Contact Info) Description 04/24/2025 Travel Social History Tobacco Use Types Packs/Day Years [...] Never 02/07/2021 How often do you attend pentecostal or pentecostalism serv ices? Never 02/07/2021 Do you belong to any clubs o r organizations such as pentecostal groups, unions, fraternal or athletic groups, or [...] Answer Date Recorded Total Score 0 02/07/2021 [facility] of Occupat ional Health - Occupational Stress [...] Recorded Do you need help finding a [facility] career center and/or a training program? No [...] as of this encounter Plan of Treatment Upcoming Encounters Date Type Department Care Team (Late st Contact Info) Description 05/10/2025 9:30 AM EDT Clinical Support [facility] [address] [place] [address] [place] [phone] Jessee Molina, DO [address] [facility], [address] [place] [address] documented as of this encounter Goals Goal Patient Goal Type Associated Problems Recent Progress Patient-Stated? Author <enter goal here> General Yes Yulia Ocasio, RN Note: Evaluation of progress towards goal: [facility] documented as of this encounter Visit Diagnoses Not on filedocumented in this encounter Additional Health Concerns Assessment Noted Time PHQ-9 Depression Total Score: 0 02/08/20 21 1:19 PM EDT documented as of this encounter Care Teams Planning Lead Relationship Specialty Start Date End Date Marilee Staples APRN-RESOLUTION ANALYST PCP - General Nurse Practitioner 03/05/25 04/25/25 documented as of this encounter
--- OUTSIDE RECORDS SUMMARY | 2025-05-02 11:14 | XMS_ITS | Encounter Summary ---
Author Organization [employer] [facility] Address [id number] [address] [place] [address] Care Team Providers Care Gore Cutter Name Role Phone Jessee Molina DO Primary Care Provider [phone] Encounter Details Date Type Department Care Team (Late st Contact Info) Description 01/27/2022 [facility]phone [facility] [address] [place] [address] Radha Dockery CMA Social History Tobacco Use Types Packs/Day Years [...] Never 02/07/2021 How often do you attend oriental orthodox or lutheran serv ices? Never 02/07/2021 Do you belong to any clubs o r organizations such as oriental orthodox groups, unions, fraternal or athletic groups, or [...] Answer Date Recorded Total Score 0 02/07/2021 [facility] Occupat ional Health - Occupational Stress [...] Recorded Do you need help finding a [facility] career center and/or a training program? No 02/07/2021 Purpose - Life Answer Date Recorded I have a purpose and direction in my life. Agree 02/07/2021 Sex and Gender Information Value Date Recorded Sex Assigned at Not on file Legal Sex Male 11:23 AM EDT Gender Identity Not on file Sexual Orientation Not on file COVID-19 Exposure Response Date Recorded In the last 10 days, have yo u been in contact with someone who was confirmed or suspected to have Coronavirus/COVID-19? No / Unsure 01/28/2022 11:23 AM EST documented as of this encounter Miscellaneous Notes * Telephone Encounter - Radha Dockery CMA - 01/27/2022 11:12 AM EST Patient had an appointment for tomorrow, which had to be cancelled due to non par with his new insurance. He states he is not having any problems and is doing well. documented in this encounter Plan of Treatment Upcoming Encounters Date Type Department Care Team (Late st Contact Info) Description 05/10/2025 9:30 AM EDT Clinical Support [facility] [address] [place] [phone] Jessee Molina DO [address] [facility], [facility] [address], [place] [address] documented as of this encounter Goals Goal Patient Goal Type Associated Problems Recent Progress Patient-Stated? Author <enter goal here> General Yes Yulia Ocasio, RN Note: Evaluation of progress towards goal: [facility] documented as of this encounter Visit Diagnoses Not on filedocumented in this encounter Additional Health Concerns Assessment Noted Time PHQ-9 Depression Total Score: 0 02/08/20 21 1:19 PM EDT documented as of this encounter Care Teams Gore Cutter Relationship Specialty Start Date End Date Jessee Molina DO [address] [place] [address], [facility], [place] [address] PCP - General Family Medicine 04/26/25 documented as of this encounter
--- OUTSIDE RECORDS SUMMARY | 2025-05-02 11:14 | XMS_ITS | Encounter Summary ---
Author Organization [facility] Address [address] [facility] [place] [address] Care Team Providers Care Director Of Counterintelligence Name Role Phone Marilee Staples RESEARCH MECHANIC Unavailable [phone] Jonny Zhu MD Primary Care Provider [phone] Marilee Staples RESEARCH MECHANIC Unavailable [phone] Reason for Visit * Reason Comments Med Refill Encounter Details Date Type Department Care Team (Late st Contact Info) Description 10/21/2024 Refill [facility] [address] [place] [address] Marilee Staples NP [address] [place] [phone] Uncontrolled type 2 diabetes mellitus with hyperglycemia, with long-term current use of insulin ([facility]) Social History Tobacco Use Types Packs/Day Years Used Date Smoking Tobacco: Never Smokeless Tobacco: Never Alcohol Use Standard Drinks/Week Comments Not Currently 0 (1 standard drink = 0.6 oz pur e alcohol) pop-4 cups daily Humiliation, Afraid, Rape, and Kick questionnair e Answer Date Recorded Within the last year, have y ou been afraid of your partner or ex-partner? No 01/06/2024 Within the last year, have y ou been humiliated or emotionally abused in other ways by your partner or ex-partner? No Within the last year, have y ou been kicked, hit, slapped, or otherwise physically hurt by your partner or ex-partner? No 01/06/2024 Within the last year, have y ou been raped or forced to have any kind of sexual activity by your partner or ex-partner? No 01/06/2024 Social Connection and Isolation Panel [NHANES] A nswer Date Recorded In a typical week, how many times do you talk on the phone with family, friends, or neighbors? Never 01/06/2024 How often do you get together with friends or re latives? Never 01/06/2024 How often do you attend mandaeism or caodaism serv ices? Never 01/06/2024 Do you belong to any clubs o r organizations such as mandaeism groups, unions, fraternal or athletic groups, or school groups? Yes 01/06/2024 How often do you attend meet ings of the clubs or organizations you belong to? Never 01/06/2024 Are you , , di vorced, , never , or living with a partner? 01/06/2024 AUDIT-C Answer Date Recorded Q1: How often do you have a drink containing alcohol? Monthly or less 01/06/2024 Q2: How many drinks containi ng alcohol do you have on a typical day when you are drinking? Patient does not drink Q3: How often do you have si x or more drinks on one occasion? Never 01/06/2024 Overall Financial Resource Strain (CARDIA) Answe r Date Recorded How hard is it for you to pa y for the very basics like food, housing, medical care, and heating? Not hard at all 01/06/2024 PHQ-2 Answer Date Recorded Patient Health Questionnaire-2 Score 0 03/13/2024 [facility] of Occupat ional Health - Occupational Stress Questionnaire Answer Date Recorded Do you feel stress - tense, restless, nervous, or anxious, or unable to sleep at night because your mind is troubled all the time - these days? Very much 01/06/2024 Exercise Vital Sign Answer Date Recorde d On average, how many days pe r week do you engage in moderate to strenuous exercise (like a brisk walk)? 0 days 01/06/2024 On average, how many minutes do you engage in exercise at this level? 0 min 01/06/2024 Hunger Vital Sign Answer Date Recorded Within the past 12 months, y ou worried that your food would run out before you got the money to buy more. Often true 02/15/20 24 Within the past 12 months, t he food you bought just didn't last and you didn't have money to get more. Often true 01/06/2024 PRAPARE - Transportation Answer Date Re corded In the past 12 months, has l ack of transportation kept you from medical appointments or from getting medications? Yes 12/23 In the past 12 months, has l ack of transportation kept you from meetings, work, or from getting things needed for daily living? Yes 01/06/2024 Housing Stability Vital Sign Answer Danilo e Recorded In the last 12 months, was t here a time when you were not able to pay the mortgage or rent on time? No 01/06/2024 In the last 12 months, how many places have you lived? 1 01/06/2024 In the last 12 months, was t here a time when you did not have a steady place to sleep or slept in a assisted (including now)? No 01/06/2024 Sex and Gender Information Value Date Recorded Sex Assigned at Not on file Legal Sex Male 7:39 PM EDT Gender Identity Not on file Sexual Orientation Not on file documented as of this encounter Plan of Treatment Not on file documented as of this encounter Visit Diagnoses Diagnosis Uncontrolled type 2 diabetes mellitus with hyperglycemia, with long-term current use of insulin ([facility]) documented in this encounter Additional Health Concerns Assessment Noted Time PHQ-9 Depression Total Score: 3 01/06/20 4:38 PM EST documented as of this encounter Care Teams Director Of Counterintelligence Relationship Specialty Start Date End Date Jonny Zhu MD [address] [place] [phone] PCP - General Family Medicine 01/06/24 Marilee Staples NP [address] [place] [phone] Nurse Practitioner Family Medicine 07/23/23 Marilee Staples NP [address] [place] [phone] Nurse Practitioner Family Medicine 01/06/24 documented as of this encounter
--- OUTSIDE RECORDS SUMMARY | 2025-05-02 11:14 | XMS_ITS | Clinical Summary ---
Author Organization [facility] Address [id number] [address] [place] [address] Care Team Providers Care Registered Nurse Post Partum Name Role Phone Jessee Molina Roger SCHWARZ Primary Care Provider [phone] Allergies Active Allergy Reactions Criticality Noted Date Comments Bee Venom Protein (Honey Bee) Other (See Comments) Medium 11/05/2020 Local swelling Medications dorzolamide (TRUSOPT) 2 % ophthalmic solutionIndicat ions:ocular hypertension Administer 1 drop to the right eye in the morning and 1 drop before bedtime. Indications: increased pressure in the eye. Active cholecalciferol , vitamin D3, 2,000 units capsule Take 1 capsule (2,000 Units total) by mouth in the morning. Active TRUE METRIX GLUCOSE TEST STRIP stripIndication s:Type 2 diabetes mellitus with foot ulcer, with long-term current use of insulin ([facility] 1 strip by other route 4 (four) times a day before meals and nightly. 200 strip 5 025 Active latanoprost (XALATAN) 0.005 % ophthalmic solution Administer 1 drop into the left eye once daily at bedtime. INSTILL 1 DROP INTO LEFT EYE AT BEDTIME 025 Active insulin glargine (LANTUS) 100 unit/mL injectionIndica tions:Type 2 diabetes mellitus with foot ulcer, with long-term current use of insulin ([facility]) Inject 0.3 mL (30 Units total) under the skin nightly. 10 mL 1 025 Active pantoprazole (PROTONIX) 40 mg EC tabletIndicatio ns:Gastroesopha geal reflux disease, unspecified whether esophagitis present Take 1 tablet (40 mg total) by mouth in the morning. 90 tablet Active lisinopriL (PRINIVIL,ZESTR IL) 10 mg tabletIndicatio ns:hypertension Take 1 tablet (10 mg total) by mouth daily with breakfast for 90 days Indications: high blood pressure. 90 tablet 025 2024 Active insulin lispro (ADMELOG SOLOSTAR U-100 INSULIN) 100 unit/mL insulin penIndications: Type 2 diabetes mellitus with foot ulcer, with long-term current use of insulin ([facility] 70-150 0 units 151-174 2 units 175-199 4 units 200-224 6 units 225-249 8 units 250-274 10 units 275-299 12 units 300-350 14 units >350 16 units and call provider 15 mL Active hydroCHLOROthia zide (HYDRODIURIL) 12.5 mg tabletIndicatio ns:Benign essential HTN Take 1 tablet (12.5 mg total) by mouth daily. 90 tablet 025 Active atorvastatin (LIPITOR) 40 mg tabletIndicatio ns:hyperlipidem ia Take 1 tablet (40 mg total) by mouth daily with breakfast for 360 days Indications: excessive fat in the blood. 90 tablet 3 025 2025 Active pen needle, diabetic 29 gauge x 15/32 needleIndicatio ns:Type 2 diabetes mellitus with foot ulcer, with long-term current use of insulin ([facility] 1 Pen Needle by miscellaneous route in the morning and 1 Pen Needle at noon and 1 Pen Needle in the evening and 1 Pen Needle before bedtime. 100 each 3 Active metFORMIN (GLUCOPHAGE) 1000 mg tabletIndicatio ns:type 2 diabetes mellitus Take 1 tablet (1,000 mg total) by mouth in the morning and 1 tablet (1,000 mg total) in the evening. Take with meals. Indications: type 2 diabetes mellitus. 2024 Discontinued atorvastatin (LIPITOR) 40 mg tabletIndicatio ns:hyperlipidem ia Take 1 tablet (40 mg total) by mouth daily with breakfast Indications: excessive fat in the blood. 2024 Discontinued(R eorder) acetaminophen (TYLENOL) 500 mg tabletIndicatio ns:headache disorder Take 2 tablets (1,000 mg total) by mouth every 6 (six) hours as needed Indications: headache. 2024 Discontinued insulin glargine (LANTUS) 100 unit/mL injection Inject 0.28 mL (28 Units total) under the skin nightly. 2024 Discontinued(R eorder) lisinopriL (PRINIVIL,ZESTR IL) 10 mg tabletIndicatio ns:hypertension Take 1 tablet (10 mg total) by mouth daily with breakfast Indications: high blood pressure. 2024 Discontinued(R eorder) hydroCHLOROthia zide (HYDRODIURIL) 12.5 mg tablet Take 1 tablet (12.5 mg total) by mouth daily. 021 2024 Discontinued(R eorder) TRUE METRIX GLUCOSE TEST STRIP strip 021 2024 Discontinued(R eorder) insulin aspart U-100 (NovoLOG) 100 unit/mL injection Inject under the skin. 2024 Discontinued insulin lispro (ADMELOG SOLOSTAR U-100 INSULIN) 100 unit/mL insulin pen 70-150 0 units 151-174 2 units 175-199 4 units 200-224 6 units 225-249 8 units 250-274 10 units 275-299 12 units Greater than 300 Administer 14 units and call the provider. 15 mL 025 2024 Discontinued(R eorder) omeprazole (PriLOSEC) 40 mg capsule Take 1 capsule (40 mg total) by mouth in the morning. 2024 Discontinued(D uplicate Listing) pantoprazole (PROTONIX) 40 mg EC tablet Take 1 tablet (40 mg total) by mouth in the morning. 2024 Discontinued(R eorder) amoxicillin-pot clavulanate (AUGMENTIN) 875-125 mg per tabletIndicatio ns:Diabetic ulcer of right midfoot associated with type 2 diabetes mellitus, with muscle involvement without evidence of necrosis (CMS-HCC) Take 1 tablet by mouth in the morning and 1 tablet before bedtime. Do all this for 10 days. 20 tablet 025 2024 amoxicillin-pot clavulanate (AUGMENTIN) 875-125 mg per tabletIndicatio ns:Diabetic ulcer of right midfoot associated with type 2 diabetes mellitus, with muscle involvement without evidence of necrosis (CMS-HCC) Take 1 tablet by mouth in the morning and 1 tablet before bedtime. Do all this for 10 days. 20 tablet 025 2024 famotidine (PEPCID) 40 mg tablet Take 1 tablet (40 mg total) by mouth in the morning. 2024 Discontinued metoclopramide HCl (GIMOTI) 15 mg/spray spray with pump Administer 1 spray into each nostril in the morning and 1 spray at noon and 1 spray in the evening and 1 spray before bedtime. 025 2024 Discontinued Active Problems Problem Noted Date Diagnosed Date Chronic midline low back pain without sciatica 0 04/27/2025 Assessment & Plan (04/27/2025 9:18 PM EDT): Ordered x-rays of lumbar spine 6 views including flexion and extension views. Benign essential HTN 04/27/2025 Assessment & Plan (04/27/2025 9:14 PM EDT): Blood pressure today in normal range. Patient denies any symptoms. Continue with hydrochlorothiazide 12.5 mg daily, lisinopril 10 mg daily. 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 Continue with insulin glargine 30 units nightly, insulin lispro sliding scale coverage before meals. Monitor blood sugars before meals. Hyperlipidemia 03/21/2021 Charcot's joint of foot, left 03/19/2021 Overview (03/19/2021): Added automatically from request for surgery [id number] Wound, open, foot with compl ication, left, initial encounter 02/24/2021 Sepsis 02/07/2021 Diabetic ulcer of right midf oot associated with type 2 diabetes mellitus, with muscle involvement without evidence of necrosis 02/07/2021 Chronic osteomyelitis of left foot with draining sinus 02/07/2021 Encounters Date Type Department Care Team Description 04/26/2025 2:00 PM EDT Office Visit [facility] [address] [place] [address] [place] [address] Jessee Molina, DO Benign essential HTN (Primary Dx); Type 2 diabetes mellitus with foot ulcer, with long-term current use of insulin (CMS-HCC); Chronic midline low back pain without sciatica; Fatty liver disease, nonalcoholic; Visit for wound check; Hyperglycemia; Gastroesophageal reflux disease, unspecified whether esophagitis present 04/24/2025 10:30 AM EDT Office Visit [facility] [address] [place] [address] Iqra Calderón, INFORMATION SERVICES MANAGER-TEMPORARY HELP AGENCY REFERRAL CLERK Diabetic ulcer of right midfoot associated with type 2 diabetes mellitus, with muscle involvement without evidence of necrosis (CMS-HCC) (Primary Dx); 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); Wound, open, foot with complication, left, initial encounter; Unstable ankle, right 04/11/2025 Travel 03/28/2025 10:40 AM EDT Office Visit [facility] [address] [place] [address] Iqra Calderón, INFORMATION SERVICES MANAGER-TEMPORARY HELP AGENCY REFERRAL CLERK Diabetic ulcer of right midfoot associated with type 2 diabetes mellitus, with muscle involvement without evidence of necrosis ([facility]) (Primary Dx); History of transmetatarsal amputation of right foot ([facility]); Visit for wound check 03/28/2025 Travel 03/04/2025 10:03 AM EDT - 03/04/2025 1:12 PM EDT Emergency [facility] [address] [place] [address] Cam Murphy, Visit for wound check (Primary Dx); Hyperglycemia Discharge Disposition: Home 03/04/2025 Travel from Last 3 Months Immunizations No known immunizations Family History Medical History Relation Name Comments Coronary artery disease Father Diabetes Father Hearing loss Father Stroke Father Cancer Maternal Grandfather Diabetes Mother Diabetes Sister 1 Diabetes Sister 2 Anesthesia problems Neg Hx Bleeding Disorder Neg Hx Clotting disorder Neg Hx Colon cancer Neg Hx Prostate cancer Neg Hx Relation Name Status Comments Father Maternal Grandfather Maternal Grandmother Mother Alive Paternal Grandfather Paternal Grandmother Sister 1 Alive Sister 2 Alive Social History Tobacco Use Types Packs/Day Years [...] Never 02/07/2021 How often do you attend adventist or anglican serv ices? Never 02/07/2021 Do you belong to any clubs o r organizations such as adventist groups, unions, fraternal or athletic groups, or [...] Answer Date Recorded Total Score 7 04/26/2025 [facility]ational Stress Questionnaire Answer Date [...] on file Sexual Orientation Not on file Last Filed Vital Signs Vital Sign Reading Time Taken Comments Blood Pressure 118/82 04/26/2025 2:12 PM EDT Pulse 95 04/26/2025 2:12 PM EDT Temperature 36.7 C (98.1 F) 04/26/2025 2:12 PM EDT Respiratory Rate 16 04/24/2025 9:00 AM EDT Oxygen Saturation 96% 04/26/2025 2:12 PM EDT Inhaled Oxygen Concentration - - Weight 115.2 kg (254 lb) 04/26/2025 2:12 PM EDT Height 174 cm (5' 8.5 ) 04/26/2025 2:12 PM EDT Body Mass Index 38.05 04/26/2025 2:12 PM EDT Plan of Treatment Upcoming Encounters Date Type Department Care Team (Late st Contact Info) Description 05/10/2025 9:30 AM EDT Clinical Support [facility] [address] [place] [address] [place] [id number] Jessee Molina, [address] [facility], [address] [place] [address] Health Maintenance Due Date Last Done Comments Diabetic Ophthalmology Exam 1965 Adult BMI Follow Up Plan 1984 Zoster (Shingles) Vaccine (1 of 2) 2016 Diabetic Foot Exam 04/17/2022 04/17/2021, 02/07/2021 Influenza Vaccine 07/23/2025 Adult BMI Screening 04/26/2026 04/26/2025 Depression Screening 04/26/2026 04/26/2025 Tobacco Screening 04/26/2026 04/26/2025 DTaP,Tdap and Td Vaccines (2 - Td or Tdap) 01/04/2033 01/04/2023 Goals Goal Patient Goal Type Associated Problems Recent Progress Patient-Stated? Author <enter goal here> General Yes Yulia Ocasio, ISAIAS Note: Evaluation of progress towards goal: dc [facility] facility Medical Devices Implanted Type Area Chief Quality Officer Device Identifier Shelf Expiration Date Model / Serial / Lot Cmnt Bn Bio 40gm Rpl [id number] - [id number] Implanted:Qty : 2 on 02/07/2021 by Ghulam Brooke DPM at [facility] Cement N/A: Foot [employer] 11/21/2024 [id number] / / [id number] Lens Iol Ultrasert 18.5d - [id number] - [id number] Implanted:Qty : 1 on 12/28/2019 by Debra Trejo MD [facility] Lens Right: Eye [employer] 07/22/2022 [id number] 18.5 / [id number] / NA Explanted Type Area Chief Quality Officer Device Identifier Shelf Expiration Date Model / Serial / Lot Pin Fx 9in in Stnm Ft 2 - [id number] Explanted:Qty: 4 on 04/18/2021 at [facility] Pin [employer] [id number] / / Description: wilfrid florez n from tray (smooth wilfrid pins double ended) Procedures Procedure Name Priority Date/Time Associated Diagnosis [...] with pressure callus (CMS-HCC) NURSING COMMUNICATION Routine 04/11/2025 11:04 AM EDT Wound, open, foot with complication, left, initial encounter DEBRIDEMENT Routine 04/11/2025 10:40 AM EDT Diabetic ulcer of right midfoot associated with type 2 diabetes mellitus, with muscle involvement without evidence of necrosis ([facility]) DEBRIDEMENT Routine 03/28/2025 10:40 AM EDT Diabetic ulcer of right midfoot associated with type 2 diabetes mellitus, with muscle involvement without evidence of necrosis ([facility]) History of transmetatarsal amputation of right foot ([facility]) XR FOOT RT MIN 3 VWS STAT 03/04/2025 10:39 AM EDT SUPERFICIAL WOUND CULTURE STAT 03/04/2025 10:23 AM EDT LACTATE W/ REFLEX STAT 03/04/2025 10: 20 AM EDT COMPREHENSIVE METABOLIC PANEL STAT 03/04/2025 10:20 AM EDT CBC WITH AUTO DIFFERENTIAL STAT 03/04/2025 10:20 AM EDT from Last 3 Months Results * Triad (04/24/2025 11:26 AM EDT) Only the most recent of3 resultswithin the time period is included. Narrative MANUALLY TRANSCRIBED RESULTS - 04/24/2025 11:26 AM EDT APPLIED IN CLINIC TODAY. us Iqra CHAVEZ NURSING COMMUNICATION Fin al Result MANUALLY TRANSCRIBED RESULTS * Debridement (04/24/2025 10:30 AM EDT) Narrative MANUALLY TRANSCRIBED RESULTS - 04/24/2025 10:30 AM EDT SCOTT Vaughn 04/24/2025 12:02 PM Debridement Performed by: SCOTT Vaughn Authorized by: SCOTT Vaughn Associated wounds: Wound 03/28/25 1 Diabetic Ulcer Foot Right;Plantar Consent: Consent obtained: Verbal and written Consent given by: Patient Risks discussed: Yes Debridement Details: Performed by: BOOT AND SADDLE REPAIR PERSON Type: Sharp Level: Subcutaneous Tissue, Devitalized tissue and other material debrided: Subcutaneous tissue, fibrin, biofilm and callus Anesthesia administration: topical Anesthesia: EMLA Total Surface Area Debrided cm^2: 7.26 Specimen Taken: None Instrument: Curette Amount of bleeding: Small Bleeding Control: Pressure Response to treatment: Procedure was tolerated well Tissue Applied?: No Result [facility] Iqra CHAVEZ PROCEDURE/MINOR SURGICAL ORDERABLES Final Result Performing Organization Address [facility] de Phone Number MANUALLY TRANSCRIBED RESULTS * Debridement (04/11/2025 10:40 AM EDT) Narrative MANUALLY TRANSCRIBED RESULTS - 04/11/2025 10:40 AM EDT SCOTT Vaughn 04/11/2025 12:18 PM Debridement Performed by: SCOTT Vaughn Authorized by: SCOTT Vaughn Associated wounds: Wound 03/28/25 1 Diabetic Ulcer Foot Right;Plantar Consent: Consent obtained: Verbal and written Consent given by: Patient Risks discussed: Yes Debridement Details: Performed by: BOOT AND SADDLE REPAIR PERSON Type: Sharp Level: Subcutaneous Tissue, Devitalized tissue and other material debrided: Subcutaneous tissue, callus and fibrin Anesthesia administration: topical Anesthesia: EMLA Total Surface Area Debrided cm^2: 7.78 Specimen Taken: None Instrument: Curette Amount of bleeding: Medium Bleeding Control: Pressure Response to treatment: Procedure was tolerated well Tissue Applied?: No Result [facility] Iqra CHAVEZ PROCEDURE/MINOR SURGICAL ORDERABLES Final Result Performing Organization Address [facility] Phone Number MANUALLY TRANSCRIBED RESULTS * Debridement (03/28/2025 10:40 AM EDT) Narrative MANUALLY TRANSCRIBED RESULTS - 03/28/2025 10:40 AM EDT SCOTT Vaughn 03/28/2025 4:19 PM Debridement Performed by: SCOTT Vaughn Authorized by: SCOTT Vaughn Consent: Consent obtained: Verbal and written Consent given by: Patient Risks discussed: Yes Debridement Details: Performed by: BOOT AND SADDLE REPAIR PERSON Type: Sharp Level: Subcutaneous Tissue, Devitalized tissue and other material debrided: Callus and subcutaneous tissue Anesthesia administration: topical Anesthesia: EMLA Total Surface Area Debrided cm^2: 10.37 Specimen Taken: None Instrument: Curette Amount of bleeding: Medium Bleeding Control: Pressure Response to treatment: Procedure was tolerated well Tissue Applied?: No Iqra Calderón INFORMATION SERVICES MANAGER-TEMPORARY HELP AGENCY REFERRAL CLERK PROCEDURE/MINOR SURGICAL ORDERABLES Final Result MANUALLY TRANSCRIBED RESULTS * X-ray foot right minimum 3 views (03/04/2025 10:39 AM EDT) Anatomical Region Laterality Modality Lower Extremities, MSK, Foot Right Com puted Radiography 03/04/2025 10:5 7 AM EDT Narrative 03/04/2025 10:59 AM EDT XR FOOT RT MIN 3 VWS CLINICAL HISTORY: COMPARISON: 05/20/2021 obtained. FINDINGS: Transmetatarsal amputation. No significant swelling of the stomach no soft tissue air no radio opaque stenosis seen or periosteal reaction to suggest osteomyelitis. Calcaneal spurring. Essentially unchanged since previous exam IMPRESSION: * Transmetatarsal amputation. Unchanged since prior study. No soft tissue gas or plain radiographic changes of osteomyelitis Finalized by Du Hawthorne MD on 03/04/2025 10:59 AM Procedure Note Du Hawthorne MD - 03/04/2025 XR FOOT RT MIN 3 VWS CLINICAL HISTORY: COMPARISON: 05/20/2021 obtained. FINDINGS: Transmetatarsal amputation. No significant swelling of the stomach no softtissue air no radio opaque stenosis seen or periosteal reaction to suggestosteomyelitis. Calcaneal spurring. Essentially unchanged since previousexam IMPRESSION: * Transmetatarsal amputation. Unchanged since prior study. No soft tissuegas or plain radiographic changes of osteomyelitis Finalized by Du Hawthorne MD on 03/04/2025 10:59 AM Lakshmi Figueroa INFORMATION SERVICES MANAGER-TEMPORARY HELP AGENCY REFERRAL CLERK IMG DIAGNOSTIC IMAGING ORD ERABLES Final Result * (ABNORMAL) Wound culture (03/04/2025 10:23 AM EDT) Gram Stain Result 0 WHITE BLOOD CELLS/LPF 03/04/2025 10:06 PM EDT [facility] Gram Stain Result 0 SQUAMOUS EPITHELIAL CELLS/LPF 03/04/2025 10:06 PM EDT [facility] Gram Stain Result MANY GRAM POSITIVE COCCI IN CLUSTERS IN CHAINS 03/04/2025 10:06 PM EDT [facility] Culture MANY STREPTOCOCCUS AGALACTIAE (GROUP B)(A) 03/07/2025 9:00 AM EDT [facility] Culture MANY STAPHYLOCOCCUS AUREUS METHICILLIN RESISTANT(A) 03/07/2025 9:00 AM EDT [facility] Culture MANY STAPHYLOCOCCUS AUREUS METHICILLIN RESISTANT VARIANT(A) 03/07/2025 9:00 AM EDT [facility] Swab Wound swab / Unknown 03/04/2025 10:23 AM EDT 03/04/2025 8:59 PM EDT Comment:RIGHT~FOOT Narrative Organism Antibiotic Method Susceptibility Staphylococcus Aureus Cefazolin JEFFERY METHOD Resistant (deduced) Staphylococcus Aureus Clindamycin JEFFERY METHOD 0.25: Susceptible Staphylococcus Aureus Oxacillin JEFFERY METHOD >=4: Resistant Staphylococcus Aureus TRIMETH/SULFAMETHOXAZOLE JEFFERY MET HOD <=0.5/9.5: Susceptible Staphylococcus Aureus Vancomycin JEFFERY METHOD 1: Susceptible Staphylococcus Aureus Daptomycin JEFFERY METHOD 0.5: Susceptible Staphylococcus Aureus Doxycycline JEFFERY METHOD 1: Susceptible Staphylococcus Aureus Cefazolin JEFFERY METHOD Resistant (deduced) Staphylococcus Aureus Clindamycin JEFFERY METHOD 0.25: Susceptible Staphylococcus Aureus Oxacillin JEFFERY METHOD >=4: Resistant Staphylococcus Aureus TRIMETH/SULFAMETHOXAZOLE JEFFERY MET HOD <=0.5/9.5: Susceptible Staphylococcus Aureus Vancomycin JEFFERY METHOD 1: Susceptible Staphylococcus Aureus Daptomycin JEFFERY METHOD 0.25: Susceptible Staphylococcus Aureus Doxycycline JEFFERY METHOD <=0.5: Susceptible Comment:CLIA ID [id number] Lakshmi Figueroa INFORMATION SERVICES MANAGER-TEMPORARY HELP AGENCY REFERRAL CLERK MICROBIOLOGY - GENERAL ORD ERABLES Final Result DRU [facility] [address] [place] [address] * Lactate w/ Reflex (03/04/2025 10:20 AM EDT) Lactate w/ Reflex 1.3 0.4 - 2.0 mmol/L 03/04/2025 10:45 AM EDT [facility] Comment: Result did not trigger repeat Lactate, re-order if needed. Blood (PLASMA) 03/04/2025 10 :20 AM EDT 03/04/2025 10:22 AM EDT Lakshmi Figueroa INFORMATION SERVICES MANAGER-TEMPORARY HELP AGENCY REFERRAL CLERK LAB BLOOD ORDERABLES Final Result [facility] [address] [facility] [address] [place] [address] * (ABNORMAL) CBC auto differential (03/04/2025 10:20 AM EDT) White Blood Cells 10.1 4.0 - 11.0 X10E9/L 03/04/2025 10:33 AM [facility] RBC count 4.76 4.10 - 5.70 X10E12/L 03/04/2025 10:33 AM [facility] Hemoglobin 13.7 13.0 - 17.0 g/dL 03/04/2025 10:33 AM [facility] Hematocrit 40.0 39 - 49 % 03/04/2025 10:33 AM [facility] MCV 84 80 - 100 fL 03/04/2025 10:33 AM [facility] MCH 28.8 27 - 34 pg 03/04/2025 10:33 AM [facility] MCHC 34.3 32 - 36 g/dL 03/04/2025 10:33 AM [facility] RDW 15.0 11.5 - 15.0 % 03/04/2025 10:33 AM [facility] Platelets 334 150 - 450 X10E9/L 03/04/2025 10:33 AM [facility] MPV 8.1 7 - 12 fL 03/04/2025 10:33 AM [facility] % neutrophils 59.7 % 03/04/2025 10:33 AM [facility] % lymphocytes 21.1 % 03/04/2025 10:33 AM [facility] % monocytes 13.4 % 03/04/2025 10:33 AM [facility] % eosinophils 3.4 % 03/04/2025 10:33 AM [facility] % Basophils 2.4 % 03/04/2025 10:33 AM [facility] Neutrophils Absolute (A) 6.0 1.5 - 6.6 X10E9/L 03/04/2025 10:33 AM [facility] Lymphocytes Absolute 2.1 1.0 - 3.5 X10E9/L 03/04/2025 10:33 AM [facility] Monocytes Absolute 1.4(H) 0 - 0.9 X10E9/L 03/04/2025 10:33 AM [facility] Eosinophils Absolute 0.3 0.0 - 0.4 X10E9/L 03/04/2025 10:33 AM [facility] Basophils Absolute 0.2 0.0 - 0.2 X10E9/L 03/04/2025 10:33 AM [facility] Blood Blood / Unknown 03/04/2025 1 0:20 AM EDT 03/04/2025 10:22 AM EDT us Lakshmi Figueroa INFORMATION SERVICES MANAGER-TEMPORARY HELP AGENCY REFERRAL CLERK LAB BLOOD ORDERABLES Final Result [facility] [address] [place] [address] * (ABNORMAL) Comprehensive metabolic panel (03/04/2025 10:20 AM EDT) Sodium 132(L) 134 - 146 mmol/L 03/04/2025 10:40 AM [facility] Potassium, Bld 3.6 3.5 - 5.0 mmol/L 03/04/2025 10:40 AM [facility] Chloride 102 98 - 109 mmol/L 03/04/2025 10:40 AM [facility] CO2 23 22 - 32 mmol/L 03/04/2025 10:40 AM [facility] Anion gap 7 5 - 15 mmol/L 03/04/2025 10:40 AM [facility] BUN 18 5 - 23 mg/dL 03/04/2025 10:44 AM [facility] Creatinine 1.20 0.70 - 1.20 mg/dL 03/04/2025 10:44 AM [facility] Comment:METHOD TRACEABLE TO IDMA STANDARD Glucose 213(H) 65 - 99 mg/dL 03/04/2025 10:40 AM [facility] Calcium 8.3(L) 8.5 - 10.5 mg/dL 03/04/2025 10:40 AM [facility] Total Protein 8.3(H) 6.0 - 8.0 g/dL 03/04/2025 10:44 AM [facility] Albumin 2.9(L) 3.2 - 5.3 g/dL 03/04/2025 10:44 AM [facility] Alkaline Phosphatase 95 39 - 130 U/L 03/04/2025 10:44 AM [facility] AST 18 0 - 41 U/L 03/04/2025 10:44 AM [facility] ALT 15 0 - 40 U/L 03/04/2025 10:44 AM [facility] Total bilirubin 0.9 0.3 - 1.2 mg/dL 03/04/2025 10:44 AM [facility] eGFR (CKD-EPI)non-rac e dependent 70 >59 ml/min/1.7 3sq.m 03/04/2025 10:44 AM [facility] Comment: Reported eGFR is based on the CKD-EPI 2020 equation that does not use a race coefficient. Blood (PLASMA) 03/04/2025 10 :20 AM EDT 03/04/2025 10:22 AM EDT us Lakshmi Figueroa INFORMATION SERVICES MANAGER-TEMPORARY HELP AGENCY REFERRAL CLERK LAB BLOOD ORDERABLES Final Result [facility] [address] [facility] [place] [place] [address] from [place] [address] [place] [address] A[employer] MEDICARE Advance Directives * Full Code (Latest Code Status on File) Date Activated Date Inactivated Comments 04/17/2021 12:59 PM 04/21/2021 5:08 PM * Full Code Date Activated Date Inactivated Comments 02/07/2021 2:54 AM 02/13/2021 1:11 AM Care Teams Registered Nurse Post Partum Relationship Specialty Start Date End Date Jessee Molina DO [address] [place] [address], [facility], [place] [address] PCP - General Family Medicine 04/26/25
--- OUTSIDE RECORDS SUMMARY | 2025-05-02 11:14 | XMS_ITS | Encounter Summary ---
Author Organization [facility] Address [address] [place] [address] Care Team Providers Care Cement Finisher Helper Name Role Phone Amor Fernandez MD Primary Care Provider Marilee Staples GLYCERIN OPERATOR Unavailable [phone] Jonny Zhu MD Unavailable Jonny Zhu MD Primary Care Provider Jonny Zhu MD Primary Care Provider Marilee Staples GLYCERIN OPERATOR Unavailable [phone] Encounter Details Date Type Department Care Team (Late st Contact Info) Description 04/13/2023 Abstract [facility] [address] [facility] [address] [place] [address] Otto Esparza MD [address] [facility] [address] [place] [address] Social History Tobacco Use Types Packs/Day Years Used Date Smoking Tobacco: Never Tobacco Cessation:Counseling Given: Not Answered Alcohol Use Standard Drinks/Week Comments Yes 0 (1 standard drink = 0.6 oz pur e alcohol) Sex and Gender Information Value Date Recorded Sex Assigned at Not on file Legal Sex Male 7:39 PM EDT Gender Identity Not on file Sexual Orientation Not on file documented as of this encounter Plan of Treatment Not on file documented as of this encounter Visit Diagnoses Not on filedocumented in this encounter Care Teams Cement Finisher Helper Relationship Specialty Start Date End Date Amor Fernandez MD PCP - General Gastroenterology 04/14/23 10/31/23 Jonny Zhu MD [address] [place] [phone] PCP - Devoted 08/22/23 11/21/23 Jonny Zhu MD [address] [place] [address] PCP - General Family Medicine 11/01/23 01/05/24 Jonny Zhu MD [address] [place] [address] PCP - General Family Medicine 01/06/24 Marilee Staples NP [address] [place] [phone] Nurse Practitioner Family Medicine 07/23/23 Marilee Staples NP [address] [place] [phone] Nurse Practitioner Family Medicine 01/06/24 documented as of this encounter
--- OUTSIDE RECORDS SUMMARY | 2025-05-02 11:14 | XMS_ITS | Clinical Summary ---
Author Organization [facility] Address [address] [place] [address] Care Team Providers Care Network Intelligence Analyst Name Role Phone Marilee Staples NP Unavailable [phone] Jonny Zhu MD Primary Care Provider [phone] Marilee Staples PROFESSIONAL ATHLETE Unavailable [phone] Allergies Active Allergy Reactions Criticality Noted Date Comments Bee Venom Swelling Medium 11/05/2020 Local swelling Medications acetaminophen (Tylenol) 500 MG tablet Take 1,000 mg by mouth every 6 (six) hours if needed Active gabapentin (Neurontin) 100 MG capsule Take 100 mg by mouth in the morning. Active OneTouch Verio test strip 1 each by Other route in the morning and 1 each at noon and 1 each in the evening and 1 each before bedtime. 3 Active insulin aspart (NovoLOG FLEXPEN) 100 UNIT/ML pen (If FSB 150-200; take 4 units,; 201-250, 6 UNITS,; 251-300, 8 UNITS; 301-350, 10 UNITS; 350-401, 12 UNITS; Max: 40 units/day) Active ketorolac (Acular) 0.5 % ophthalmic solution Administer 1 drop into both eyes in the morning and 1 drop at noon and 1 drop in the evening and 1 drop before bedtime. Active dorzolamide (Trusopt) 2 % ophthalmic solution Administer 1 drop into affected eye(s) in the morning and 1 drop in the evening. Active Netarsudil-Latano prost (ROCKLATAN OP) Administer 1 drop into affected eye(s) at bedtime Active amitriptyline (Elavil) 25 MG tabletIndications :Type 2 diabetes mellitus with diabetic neuropathy, with long-term current use of insulin ([facility]) Take 1 tablet (25 mg) by mouth at bedtime 30 tablet 2 4 Active hydroCHLOROthiazi de (HYDRODiuril) 12.5 MG tabletIndications :Primary hypertension (CMS/HCC) Take 1 tablet (12.5 mg) by mouth in the morning. 30 tablet 2 4 Active metFORMIN (Glucophage) 1000 MG tabletIndications :Uncontrolled type 2 diabetes mellitus with hyperglycemia, with long-term current use of insulin ([facility]) Take 1 tablet (1,000 mg) by mouth in the morning and 1 tablet (1,000 mg) in the evening. Take with meals. 60 tablet 2 4 Active famotidine (Pepcid) 40 MG tabletIndications :Gastroesophageal reflux disease, unspecified whether esophagitis present Take 1 tablet (40 mg) by mouth at bedtime 30 tablet 5 4 Active pantoprazole (ProtoNix) 40 MG EC tabletIndications :Gastroesophageal reflux disease, unspecified whether esophagitis present Take 1 tablet (40 mg) by mouth in the morning. Take before meals. 30 tablet 5 4 Active latanoprost (Xalatan) 0.005 % ophthalmic solution INSTILL 1 DROP INTO LEFT EYE IN THE EVENING DIRECTED 4 Active moxifloxacin (Vigamox) 0.5 % ophthalmic solution 4 Active cholecalciferol (Vitamin D-3) 25 MCG (1000 UT) capsule Take 1,000 Units by mouth Daily Active atorvastatin (Lipitor) 40 MG tabletIndications :Uncontrolled type 2 diabetes mellitus with hyperglycemia, with long-term current use of insulin ([facility]) Take 1 tablet (40 mg) by mouth in the evening 100 tablet 4 Active DULoxetine (Cymbalta) [address] capsuleIndication s:Type 2 diabetes mellitus with diabetic neuropathy, with long-term current use of insulin ([facility]) Take 1 capsule (30 mg) by mouth Daily Take 1 capsule (30 mg) by mouth in the morning. 30 capsule 2 4 Active lisinopril 10 MG tabletIndications :Primary hypertension (CMS/HCC) Take 1 tablet (10 mg) by mouth in the morning. 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 Take medications (pills or insulin) as directed. Monitor for s/s of hypoglycemia (sweaty, dizziness, nausea, vomiting, or shakiness). Watch for increase in thirst, urination, or appetite. Inspect feet frequently monitoring for open wounds , and also recommend yearly eye exam. Pt should attempt to remain as physically active as chronic conditions allow, as well as trying to follow a diet low in carbohydrates, and simple sugars. History of uncontrolled diabetes, has been sent to [facility], who then referred onto Dr Wallis for management..still has not seen him states he does not have an appt, tried to save the number in his phone, now can't find this. I did provide him a number for this. He is not testing sugars, as he does not have any type of test strips. Insurance will not cover he states. I have explained that we could order from [facility] in [place] as they can bill DME, he then states that is too far to drive for his ride to pick this up. Then I recommended that he trial something such as [employer] Elizabeth device as medicaid will cover this, declines trying this as well, states that he does too many things to keep it on. Pt has poor insight to his disease, and offers many excuses as to why he cannot do this or that. He saw Ishmael [facility] in 10/2023, she felt that he was too complex for her to treat, was referred to Dr Wallis, and to date no appt. He has had labs that were due ordered in 10/2023, still 4 months later not done. I am going to discharge this patient for non compliance in medical treatment and a letter will be sent to this patient. Assessment & Plan (01/06/2024 9:07 PM EST): Check blood sugars daily, notify if <70 or >200. Take medications (pills or insulin) as directed. Monitor for s/s of hypoglycemia (sweaty, dizziness, nausea, vomiting, or shakiness). Watch for increase in thirst, urination, or appetite. Inspect feet frequently monitoring for open wounds , and also recommend yearly eye exam. Pt should attempt to remain as physically active as chronic conditions allow, as well as trying to follow a diet low in carbohydrates, and simple sugars. History of uncontrolled diabetes, has been sent to [facility], who then referred onto Dr Wallis for management Pt has poor insight to his disease, and offers many excuses as to why he cannot do this or that I will refer to dr Wallis, if the patient Needs to get labs done as well!! Family history of heart disease 01/06/2024 Elevated alkaline phosphatase level 01/06/2024 Anxiety, generalized 01/06/2024 Encounter for subsequent [facility] wellness visit (AWV) in Medicare patient 01/06/2024 Assessment & Plan (01/06/2024 4:55 PM EST): Reviewed Ht/Wt/BMI Recommend eye exam yearly Recommend dental exams twice a year Balance work/leisure activities Exercises is recommended most days of the week (appropriate as chronic conditions allow) Follow up yearly and prn Colon cancer screening 11/02/2023 Obesity (BMI 30-39.9) 11/02/2023 Vitamin D deficiency 11/02/2023 Assessment & Plan (11/02/2023 3:09 PM EST): Check labs Type 2 diabetes mellitus wit h diabetic neuropathy, unspecified 10/27/2023 Assessment & Plan (03/13/2024 9:01 AM EDT): Continue with duloxetine as well as elavil Has established counter tender Assessment & Plan (11/02/2023 3:11 PM EST): Has upcoming appt with diabetic specialist Check labs Fu in 8 weeks Hypoproteinemia 10/27/2023 Hypocalcemia 10/27/2023 Hypertension 10/27/2023 Assessment & Plan (03/13/2024 9:02 AM EDT): At goal, no changes to kam Check labs Assessment & Plan (01/06/2024 9:03 PM EST): At goal, labs need completed from 11/13 Gastroesophageal reflux disease 10/27/2023 Overview (02/03/2024): EGD 02/03/24 Assessment & Plan (03/13/2024 9:02 AM EDT): Continue with GI for management of this Assessment & Plan (01/06/2024 9:04 PM EST): Check labs, stable on current meds Assessment & Plan (11/02/2023 3:09 PM EST): No changes in meds Abnormal gait 10/27/2023 Nausea and vomiting 04/14/2023 Chronic rhinitis 04/14/2023 Ulcer of right foot with fat layer exposed 08/07 Overview (10/27/2023): Added automatically from request for surgery [id number] Hyperlipidemia 03/21/2021 Assessment & Plan (11/02/2023 3:09 PM EST): Cont statin Check labs Cellulitis 01/24/2014 Resolved Problems Problem Noted Date Diagnosed Date Resolved Date Open wound of toe 10/27/2023 01/06/2024 Charcot's joint of foot, left 03/19/2021 01/06/2024 Overview (10/27/2023): Added automatically from request for surgery [id number] Wound, open, foot with compl ication, left, initial encounter 02/24/2021 01/06/2024 Sepsis 02/07/2021 01/06/2024 Chronic osteomyelitis of lef t foot with draining sinus 02/07/2021 01/06/2024 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, with necrosis of bone 02/07/2021 01/06/2024 Open wound of foot excluding toes 09/07/2016 01/06/2024 Closed multiple fractures of hand bones 05/13/2012 01/06/2024 Encounters Date Type Department Care Team Description 02/28/2025 Refill [facility] [address] [place] [address] Marilee Staples NP Primary hypertension (CMS/HCC) from Last 3 Months Immunizations Immunization Administration Dates Next Due Tdap 01/04/2023 Family History Medical History Relation Name Comments Heart disease Father Hyperlipidemia Father Hypertension Father Diabetes Mother Hyperlipidemia Mother Hypertension Mother Kidney disease Mother Diabetes Sibling sister Relation Name Status Comments Father Other Mother Other Sibling Alive Social History Tobacco Use Types Packs/Day Years Used Date Smoking Tobacco: Never Smokeless Tobacco: Never Tobacco Cessation:Counseling Given: Not Answered Alcohol Use Standard Drinks/Week Comments Not Currently [...] Never 01/06/2024 How often do you attend restorationism or buddhist serv ices? Never 01/06/2024 Do you belong to any clubs o r organizations such as restorationism groups, unions, fraternal or athletic groups, or [...] Recorded Patient Health Questionnaire-2 Score 0 03/13/2024 [facility] - Occupational Stress Questionnaire Answer Date Recorded [...] the money to buy more. Often true 01/06/20 24 Within the past 12 months, t [...] place to sleep or slept in a penitentiary (including now)? No 01/06/2024 Sex and Gender Information Value Date Recorded Sex Assigned at Not on file Legal Sex Male 7:39 PM EDT Gender Identity Not on file Sexual Orientation Not on file Last Filed Vital Signs Vital Sign Reading Time Taken Comments Blood Pressure 118/78 03/13/2024 8:25 AM EDT Pulse 100 03/13/2024 8:25 AM EDT Temperature 36.4 C (97.5 F) 03/13/2024 8:25 AM EDT Respiratory Rate 19 03/13/2024 8:25 AM EDT Oxygen Saturation 96% 03/13/2024 8:25 AM EDT Inhaled Oxygen Concentration - - Weight 116 kg (256 lb 12.8 oz) 03/13/2024 8:25 A M EDT Height 179.1 cm (5' 10.5 ) 03/13/2024 8:25 AM ED T Body Mass Index 36.33 03/13/2024 8:25 AM EDT Plan of Treatment Health Maintenance Due Date Last Done Comments CT Colonography 1966 Colonoscopy 1966 Colorectal Cancer Screening 1966 FIT-DNA 1966 FIT 1966 FOBT 1966 Sigmoidoscopy 1966 Diabetes: Hemoglobin A1C 08/01/2024 024, 05/01/2024, 07/20/2023, Additional history exists Diabetes: Retinopathy Screening 11/09/2024 3, 02/16/2023 Medicare Annual Wellness (AWV) 01/06/2025 01/06/2024 , 01/06/2024 Diabetes: Urine Protein Screening 05/01/2025 05/01/2024, 05/01/2024, 05/01/2024, Additional history exists Influenza Vaccine (Season Ended) 2025 Procedures Procedure Name Priority Date/Time Associated Diagnosis Comments MICROALBUMIN / CREATININE URINE RATIO Routine 05/01/2024 11:29 AM EDT HEMOGLOBIN A1C Routine 05/01/2024 11:29 AM EDT from Last 3 Months or Most Recently Relevant to Health Maintenance Results * Microalbumin / creatinine urine ratio (05/01/2024 11:29 AM EDT) MICROALBUMIN, URINE 1.8 0.0 - 1.9 mg/dL [facility] URINE CREAT 184.90 mg/dL [facility] ALB/CREAT RATIO 9.7 0.0 - 30.0 mg/g creat [facility] Comment:[facility]FORMED AT [place] [address],[place] [address] 05/01/2024 11:2 9 AM EDT 05/01/2024 11:30 AM EDT Marilee Staples PROFESSIONAL ATHLETE LAB URINE ORDERABLES Final Resu lt Performing Organization Address [facility] de Phone Number [facility] * (ABNORMAL) Hemoglobin A1c (05/01/2024 11:29 AM EDT) HEMOGLOBIN A1C 11.3(H) 4.4 - 5.6 % [facility] Comment: NOTE ADA Guidelines Result HgbA1c Normal : less than 5.7 % Prediabetes : 5.7 % to 6.4 % Diabetes : > 6.4 % Use with caution in patients with abnormal hemoglobin variants as the half-life of red blood cells and in vivo glycation rates are affected. AVERAGE GLUCOSE 278 mg/dL [facility] Comment:[facility]MED AT [place] [address],[place] [address] 05/01/2024 11:2 9 AM EDT 05/01/2024 11:30 AM EDT Marilee Staples PROFESSIONAL ATHLETE LAB BLOOD ORDERABLES Final Resu lt Performing Organization Address [facility]/ZIP Co de Phone Number [facility] from Last 3 Months or Most Recently Relevant to Health Maintenance Insurance [employer] MEDICARE ADVANTAGE Care Teams Network Intelligence Analyst Relationship Specialty Start Date End Date Jonny Zhu MD [address] [place] [phone] PCP - General Family Medicine 01/06/24 Marilee Staples NP [address] [place] [address] Nurse Practitioner Family Medicine 07/23/23 Marilee Staples NP [address] [place] [address] Nurse Practitioner Family Medicine 01/06/24
--- OUTSIDE RECORDS SUMMARY | 2025-05-02 11:14 | XMS_ITS | Encounter Summary ---
Author Organization [facility] Address [address] [facility] [place] [address] Care Team Providers Care Special Inspector Name Role Phone Marilee Staples COVERAGE SPECIALIST Unavailable [phone] Jonny Zhu MD Primary Care Provider [phone] Marilee Staples COVERAGE SPECIALIST Unavailable [phone] Reason for Visit * Reason Comments Med Refill Encounter Details Date Type Department Care Team (Late st Contact Info) Description 06/10/2024 Refill [facility] [address] [place] [address] Marilee Staples NP [address] [place] [phone] Primary hypertension (CMS/HCC) Social History Tobacco Use Types Packs/Day Years [...] Never 01/06/2024 How often do you attend evangelical or jew serv ices? Never 01/06/2024 Do you belong to any clubs o r organizations such as evangelical groups, unions, fraternal or athletic groups, or [...] Recorded Patient Health Questionnaire-2 Score 0 03/13/2024 [facility] - Occupational Stress Questionnaire Answer Date [...] place to sleep or slept in a usp (including now)? No 01/06/2024 Sex and Gender Information Value Date Recorded Sex Assigned at Not on file Legal Sex Male 7:39 PM EDT Gender Identity Not on file Sexual Orientation Not on file documented as of this encounter Plan of Treatment Not on file documented as of this encounter Visit Diagnoses Diagnosis Primary hypertension (CMS/HCC) Unspecified essential hypertension documented in this encounter Additional Health Concerns Assessment Noted Time PHQ-9 Depression Total Score: 3 01/06/20 24 4:38 PM EST documented as of this encounter Care Teams Special Inspector Relationship Specialty Start Date End Date Jonny Zhu MD [address] [place] [address] PCP - General Family Medicine 01/06/24 Marilee Staples NP [address] [place] [phone] Nurse Practitioner Family Medicine 07/23/23 Marilee Staples NP [address] [place] [phone] Nurse Practitioner Family Medicine 01/06/24 documented as of this encounter
--- OUTSIDE RECORDS SUMMARY | 2025-05-02 11:14 | XMS_ITS | Encounter Summary ---
Author Organization [facility] tem Address [id number] [address] [place] [address] Care Team Providers Care Traveling Engineer Name Role Phone Jessee Molina Roger SCHWARZ Primary Care Provider [phone] Encounter Details Date Type Department Care Team (Late st Contact Info) Description 02/24/2021 Orders Only [facility] - Wound Care Outpatient [address] [place] [phone] Rashel Feldman MD [address] [facility] [place], [place] [id number] Wound, open, foot with complication, left, initial encounter (Primary Dx); Diabetic ulcer of left midfoot associated with type 2 diabetes mellitus, with necrosis of bone ([facility]) Social History Tobacco Use Types Packs/Day Years Used Date Smoking Tobacco: Never Smokeless Tobacco: Never Alcohol Use Standard Drinks/Week Comments Yes 0 (1 standard drink = 0.6 oz pur e alcohol) LAST DRINK WAS 9 YRS AGO Social Connection and Isolation Panel [NHANES] A nswer Date Recorded In a typical week, how many times do you talk on the phone with family, friends, or neighbors? Twice a week 02/07/2021 How often do you get together with friends or re latives? Never 02/07/2021 How often do you attend alevism or orthodoxy serv ices? Never 02/07/2021 Do you belong to any clubs o r organizations such as alevism groups, unions, fraternal or athletic groups, or [...] Answer Date Recorded Total Score 0 02/07/2021 [facility] - Occupational Stress [...] Recorded Do you need help finding a [facility] and/or a training program? No 02/07/2021 Purpose - Life Answer Date Recorded I have a purpose and direction in my life. Agree 02/07/2021 Sex and Gender Information Value Date Recorded Sex Assigned at Not on file Legal Sex Male 11:23 AM EDT Gender Identity Not on file Sexual Orientation Not on file COVID-19 Exposure Response Date Recorded In the last month, have you been in contact with someone who was confirmed or suspected to have Coronavirus / COVID-19? No / Unsure 02/24/2021 3:27 PM EDT documented as of this encounter Plan of Treatment Upcoming Encounters Date Type Department Care Team (Late st Contact Info) Description 05/10/2025 9:30 AM EDT Clinical Support [facility] [address] [place] [phone] Jessee Molina DO [address] [facility], [place] [address] documented as of this encounter Goals Goal Patient Goal Type Associated Problems Recent Progress Patient-Stated? Author <enter goal here> General Yes Yulia Ocasio, RN Note: Evaluation of progress towards goal: [facility] documented as of this encounter Visit Diagnoses Diagnosis Wound, open, foot with complication, left, initial encounter- Primary Diabetic ulcer of left midfoot associated with type 2 diabetes mellitus, with necrosis of bone (CMS-HCC) documented in this encounter Additional Health Concerns Infection Onset Date Last Indicated Resolved Time COVID-19 Rule-Out 08/29/2021 08/29/2021 08/30/2021 11:54 PM EDT Assessment Noted Time PHQ-9 Depression Total Score: 0 02/08/20 21 1:19 PM EDT documented as of this encounter Care Teams Traveling Engineer Relationship Specialty Start Date End Date Jessee Molina DO [address] [facility], [place], [place] [id number] PCP - General Family Medicine 04/26/25 documented as of this encounter
--- OUTSIDE RECORDS SUMMARY | 2025-05-02 11:14 | XMS_ITS | Encounter Summary ---
Author Organization [employer] Address [id number] [address] [place] [address] Care Team Providers Care Single Pass Soil Stabilizer Operator Name Role Phone Jessee Molina DO Primary Care Provider [phone] Encounter Details Date Type Department Care Team (Late st Contact Info) Description 02/21/2021 [facility]phone [facility] [address] [place] [address] Lakshmi Tapia [facility] Social History Tobacco Use Types Packs/Day Years [...] Never 02/07/2021 How often do you attend mormon or muslim serv ices? Never 02/07/2021 Do you belong to any clubs o r organizations such as mormon groups, unions, fraternal or athletic groups, or [...] Answer Date Recorded Total Score 0 02/07/2021 [facility] of Occupat ional Health - Occupational Stress [...] Recorded Do you need help finding a [facility] career center and/or a training program? [...] PM EDT documented as of this encounter Miscellaneous Notes * Telephone Encounter - Lakshmi Tapia CMA - 02/21/2021 12:45 PM EDT Nani called from [facility] stating that Mr. Rodriguez will be discharged to [facility] in [place]. Once he is discharged he will not be getting Hyperbaric treatments. She stated they exhaustedall efforts to set something up, but it was not possible. Her number is [phone] if you would like to speak with her. Lakshmi Tapia CMA 02/21/21 1251 * Telephone Encounter - Ghulam Brooke DPM - 02/21/2021 12:45 PM EDT That is fine. Please just make sure he still makes his follow-up appointments with me. * Telephone Encounter - Lakshmi Tapia CMA - 02/21/2021 12:45 PM EDT I did confirm all the appointments with Nani as well. Lakshmi Tapia CMA 02/21/21 1339 documented in this encounter Plan of Treatment Upcoming Encounters Date Type Department Care Team (Late st Contact Info) Description 05/10/2025 9:30 AM EDT Clinical Support [facility] [address] [place] [address] [place] [address] Jessee Molina, [address] [place] [address], [facility] [address], [place] [address] documented as of this encounter Goals Goal Patient Goal Type Associated Problems Recent Progress Patient-Stated? Author <enter goal here> General Yes Yulia Ocasio, RN Note: Evaluation of progress towards goal: [facility] facility documented as of this encounter Visit Diagnoses Not on filedocumented in this encounter Additional Health Concerns Infection Onset Date Last Indicated Resolved Time COVID-19 Rule-Out 08/29/2021 08/29/2021 08/30/2021 11:54 PM EDT Assessment Noted Time PHQ-9 Depression Total Score: 0 02/08/20 21 1:19 PM EDT documented as of this encounter Care Teams Single Pass Soil Stabilizer Operator Relationship Specialty Start Date End Date Jessee Molina DO [address] [place] [address], [place] [address] PCP - General Family Medicine 04/26/25 documented as of this encounter
--- OUTSIDE RECORDS SUMMARY | 2025-05-02 11:14 | XMS_ITS | Encounter Summary ---
Author Organization [facility] Address [address] [place] [address] Care Team Providers Care Cardiac/Vascular Sonographer Name Role Phone Marilee Staples SLIP SEAT COVERER Unavailable [phone] Jonny Zhu MD Primary Care Provider [phone] Marilee Staples SLIP SEAT COVERER Unavailable [phone] Reason for Visit * Reason Comments Med Refill Encounter Details Date Type Department Care Team (Late st Contact Info) Description 02/28/2025 Refill [facility] [address] [place] [address] Marilee Staples NP [address] [place] [phone] Primary hypertension (CMS/HCC) Social History Tobacco Use [...] Never 01/06/2024 How often do you attend anglican or nondenominational serv ices? Never 01/06/2024 Do you belong to any clubs o r organizations such as anglican groups, unions, fraternal or athletic groups, or [...] Recorded Patient Health Questionnaire-2 Score 0 03/13/2024 [facility] - Occupational Stress Questionnaire Answer [...] place to sleep or slept in a long-term (including now)? No 01/06/2024 Sex and Gender [...] documented as of this encounter Care Teams Cardiac/Vascular Sonographer Relationship Specialty Start Date End Date Jonny Zhu MD [address] [place] [address] PCP - General Family Medicine 01/06/24 Marilee Staples NP [address] [place] [address] Nurse Practitioner Family Medicine 07/23/23 Marilee Staples NP [address] [place] [address] Nurse Practitioner Family Medicine 01/06/24 documented as of this encounter
--- OUTSIDE RECORDS SUMMARY | 2025-05-02 11:14 | XMS_ITS | Encounter Summary ---
Author Organization [facility] Address [address] [facility] [place] [place] [address] Care Team Providers Care Supervisor Hydrochloric Area Name Role Phone Marilee Staples NP Unavailable [phone] Jonny Zhu MD Primary Care Provider [phone] Marilee Staples NP Unavailable [phone] Encounter Details Date Type Department Care Team (Late st Contact Info) Description 05/02/2024 Orders Only [facility] [address] [place] [address] Marilee Staples NP [address] [place] [address] Social History Tobacco Use Types Packs/Day Years [...] Never 01/06/2024 How often do you attend synagogue or rastafari serv ices? Never 01/06/2024 Do you belong to any clubs o r organizations such as synagogue groups, unions, fraternal or athletic groups, or [...] Recorded Patient Health Questionnaire-2 Score 0 03/13/2024 [facility] of Occupat ional Health - [...] place to sleep or slept in a halfway (including now)? No 01/06/2024 Sex and Gender Information Value Date Recorded Sex Assigned at Not on file Legal Sex Male 7:39 PM EDT Gender Identity Not on file Sexual Orientation Not on file documented as of this encounter Plan of Treatment Not on file documented as of this encounter Procedures Procedure Name Priority Date/Time Associated Diagnosis Comments MISCELLANEOUS LAB TEST Routine 05/01/2024 10:08 AM EDT documented in this encounter Results * - Miscellaneous Test (05/01/2024 10:08 AM EDT) Marilee Staples NP LAB BLOOD ORDERABLES Final Resu lt documented in this encounter Visit Diagnoses Not on filedocumented in this encounter Additional Health Concerns Assessment Noted Time PHQ-9 Depression Total Score: 3 01/06/20 24 4:38 PM EST documented as of this encounter Care Teams Supervisor Hydrochloric Area Relationship Specialty Start Date End Date Jonny Zhu MD [address] [place] [address] PCP - General Family Medicine 01/06/24 Marilee Staples NP [address] [place] [address] Nurse Practitioner Family Medicine 07/23/23 Marilee Staples NP [address] [place] [address] Nurse Practitioner Family Medicine 01/06/24 documented as of this encounter
--- OUTSIDE RECORDS SUMMARY | 2025-05-02 11:14 | XMS_ITS | Encounter Summary ---
Author Organization [employer] Address [id number] [address] [place] [address] Care Team Providers Care New Car Make Ready Mechanic Name Role Phone Jessee Molina DO Primary Care Provider Encounter Details Date Type Department Care Team (Late st Contact Info) Description 02/25/2021 [facility]phone [facility] [address] [place] [address] [place] Dockery CMA Social History [...] How often do you attend gnosticist or jehovah's witness serv ices? Never 02/07/2021 Do you belong [...] Answer Date Recorded Total Score 0 02/07/2021 [facility] of Occupat ional Health - Occupational [...] Recorded Do you need help finding a [facility] career center and/or a training [...] Telephone Encounter - [place] Dockery CMA - 02/25/2021 10:21 AM EDT Spoke to Kathrine at [facility] in [place] [phone] to inform her that the order for the wound vac was being sent with patient. She stated there are no vacs in house and it will need to be ordered, but they should have it by tomorrow at the latest. , she stated needs a frequency added to the order and faxed over to her. * Telephone Encounter - Ghulam Brooke DPM - 02/25/2021 10:21 AM EDT Change every 2-3 days. Please notify them of that order change * Telephone Encounter - [place] Dockery CMA - 02/25/2021 10:21 AM EDT Updated orders with duration faxed to attention Kathrine at [facility]. documented in this encounter Plan of Treatment Upcoming Encounters Date Type Department Care Team (Late st Contact Info) Description 05/10/2025 9:30 AM EDT Clinical Support [facility] [address] [place] [address] [place] [address] Jessee Molina, [address] [place] [address], [facility], [place] [address] documented as of this encounter Goals Goal Patient Goal Type Associated Problems Recent Progress Patient-Stated? Author <enter goal here> General Yes Yulia Ocasio, RN Note: Evaluation of progress towards goal: ar halfway facility documented as of this encounter Visit Diagnoses Not on filedocumented in this encounter Additional Health Concerns Infection Onset Date Last Indicated Resolved Time COVID-19 Rule-Out 08/29/2021 08/29/2021 08/30/2021 11:54 PM EDT Assessment Noted Time PHQ-9 Depression Total Score: 0 02/08/20 21 1:19 PM EDT documented as of this encounter Care Teams New Car Make Ready Mechanic Relationship Specialty Start Date End Date Jessee Molina DO [address] [place] [address], [place] [address] PCP - General Family Medicine 04/26/25 documented as of this encounter
--- OUTSIDE RECORDS SUMMARY | 2025-05-02 11:14 | XMS_ITS | Clinical Summary ---
Author Organization [facility] Address [address] [place] [address] Care Team Providers Care Convict Guard Name Role Phone Marilee Staples APRN, NP Primary Care Provide r Allergies Active Allergy Reactions Criticality Noted Date Comments Bee Venom Other (See Comments) Medium 11/05/2020 Local swelling Medications piperacillin-t azobactam (ZOSYN) 3-0.375 GM per 50ML IVPB extended infusion Infuse 3,375 mg intravenously every 8 hours Active Insulin Aspart (NOVOLOG FLEXPEN SC) Inject into the skin Active metFORMIN (GLUCOPHAGE) 1000 MG tablet Take 1,000 mg by mouth 2 times daily (with meals) Active atorvastatin (LIPITOR) 40 MG tablet 1 Active dorzolamide (TRUSOPT) 2 % ophthalmic solution Apply 1 drop to eye 2 times daily Active insulin glargine (LANTUS) 100 UNIT/ML injection vial Inject 32 Units into the skin nightly 0 Active B-D UF III MINI PEN NEEDLES 31G X 5 MM MISC 1 Active lisinopril (PRINIVIL;ZEST RIL) 10 MG tablet Take 10 mg by mouth daily (with breakfast) Active Social History Tobacco Use Types Packs/Day Years Used Date Smoking Tobacco: Never Smokeless Tobacco: Never Sex and Gender Information Value Date Recorded Sex Assigned at Not on file Legal Sex Male 2:59 PM EDT Gender Identity Not on file Sexual Orientation Not on file Last Filed Vital Signs Vital Sign Reading Time Taken Comments Blood Pressure 126/82 04/23/2021 10:44 AM EDT Pulse 98 04/23/2021 10:44 AM EDT Temperature 36.4 C (97.5 F) 04/23/2021 10:44 AM EDT Respiratory Rate 16 04/23/2021 10:4 4 AM EDT Oxygen Saturation 99% 04/23/2021 10: 44 AM EDT ROOM [facility] AT REST Inhaled Oxygen Concentration - - Weight 94.3 kg (208 lb) 04/23/2021 10:4 4 AM EDT Height 177.8 cm (5' 10 ) 04/23/2021 10: 44 AM EDT Body Mass Index 29.84 04/23/2021 10:44 AM EDT Plan of Treatment Not on file Insurance MEDICARE Care Teams Convict Guard Relationship Specialty Start Date End Date Marilee Staples, KNOBBER - ROPE MACHINE SETTER [address] [place] [address] PCP - General Nurse Practitioner 03/26/21
--- OUTSIDE RECORDS SUMMARY | 2025-05-02 11:14 | XMS_ITS | Encounter Summary ---
Author Organization [email or web address] Address [id number] [address] [place] [address] Care Team Providers Care Microsoft Bi Consultant Name Role Phone Brendalauren Jesese Duran DO Primary Care Provider Encounter Details Date Type Department Care Team (Late st Contact Info) Description 03/11/2021 Telephone [facility] [address] [place] [address] Ghulam Brooke, DPM [address] [facility] [address] [place] [address] Social History Tobacco Use Types Packs/Day Years [...] Never 02/07/2021 How often do you attend baptist or alevism serv ices? Never 02/07/2021 Do you belong to any clubs o r organizations such as baptist groups, unions, fraternal or athletic groups, or [...] Answer Date Recorded Total Score 0 02/07/2021 [facility] of Occupat ional Health - Occupational [...] have Coronavirus / COVID-19? No / Unsure 03/11/2021 2:02 PM EDT documented as of this encounter Miscellaneous Notes * Telephone Encounter - Isabelle Grimes - 03/11/2021 3:58 PM EDTSummary: Reschedule appointment The patient wanted to know If he could reschedule his post op appointment on the to the on Wednesday morning. Is this ok? -Thanks * Telephone Encounter - Ghulam Brooke DPM - 03/11/2021 3:58 PM EDT I am not here Wednesday. If he can make it in on the we will have to change his wound care orders. Please have them change the bandage on the and applied Betadine-soaked gauze to the wound followed by 3 layers of Kerlix, 4 in and 6 in Ezequiel bandage and change once daily and then followup Wednesday next week documented in this encounter Plan of Treatment Upcoming Encounters Date Type Department Care Team (Late st Contact Info) Description 05/10/2025 9:30 AM EDT Clinical Support [facility] [address] [place] [address] [place] [address] Jessee Molina, [address] [place] [address], [facility] [address], [place] [address] documented as of this encounter Goals Goal Patient Goal Type Associated Problems Recent Progress Patient-Stated? Author <enter goal here> General Yes Yulia Ocasio, RN Note: Evaluation of progress towards goal: [facility] documented as of this encounter Visit Diagnoses Not on filedocumented in this encounter Additional Health Concerns Infection Onset Date Last Indicated Resolved Time COVID-19 Rule-Out 08/29/2021 08/29/2021 08/30/2021 11:54 PM EDT Assessment Noted Time PHQ-9 Depression Total Score: 0 02/08/20 21 1:19 PM EDT documented as of this encounter Care Teams Microsoft Bi Consultant Relationship Specialty Start Date End Date Jessee Molina DO [address] [facility], [address] [place] [id number] PCP - General Family Medicine 04/26/25 documented as of this encounter
--- OUTSIDE RECORDS SUMMARY | 2025-05-02 11:14 | XMS_ITS | Clinical Summary ---
Author Organization [facility] Address [address] [place] [address] Care Team Providers Care Rolling Chair Pusher Name Role Phone Marilee Staples CNP Primary Care Provider [phone] Allergies No known active allergies Medications metFORMIN (GLUCOPHAGE) 1000 MG tablet Take 1,000 mg by mouth 2 (two) times a day with meals . Active insulin glargine (LANTUS) 100 unit/mL injection Inject 25 (twenty five) Units under the skin nightly . 7.5 mL 0 Active insulin lispro (HumaLOG) 100 unit/mL injection Inject 5 (five) Units under the skin 3 (three) times a day before meals . 4.5 mL 0 Active insulin lispro (HumaLOG) 100 unit/mL injection Sliding scale before meals: BG 150-200 = +1 unit Humalog, 201-250=+2 Units Humalog, 251-300=+3 Units Humalog, 301-350= +4 Humalog, >351 =+5 units Humalog . 10 mL 0 Active Additional Information Patient not taking.Reported on 02/06/2021 atorvastatin (LIPITOR) 40 MG tablet Take 1 tablet by mouth daily . 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, with long-term current use of insulin 11/06/2020 Secondary DM with DKA 11/05/2020 Family History Medical History Relation Comments Diabetes Brother Diabetes Father Heart disease Father Diabetes Mother Relation Status Comments Brother Father Mother Social History Tobacco Use Types Packs/Day Years Used Date Smoking Tobacco: Never Smokeless Tobacco: Never Alcohol Use Standard Drinks/Week Comments Yes 0 (1 standard drink = 0.6 oz pur e alcohol) rarely Sex and Gender Information Value Date Recorded Sex Assigned at Not on file Legal Sex Male 1:33 PM EST Gender Identity Not on file Sexual Orientation Not on file Last Filed Vital Signs Vital Sign Reading Time Taken Comments Blood Pressure 102/60 02/06/2021 1:44 PM EDT Pulse 129 02/06/2021 1:44 PM EDT Temperature 36.6 C (97.9 F) 02/06/2021 1:44 PM EDT Respiratory Rate 16 02/06/2021 1:44 PM EDT Oxygen Saturation 96% 02/06/2021 1:44 PM EDT Inhaled Oxygen Concentration - - Weight 105 kg (231 lb 7.7 oz) 11/18/2020 11:38 A M EST Height 177.8 cm (5' 10 ) 11/18/2020 11:38 AM EST Body Mass Index 33.21 11/18/2020 11:38 AM EST Plan of Treatment Health Maintenance Due Date Last Done Comments CT Colonography 1966 Colonoscopy 1966 Colorectal Cancer Screening/Monitoring 1966 Fecal DNA 1966 Fecal occult blood test (FOBT,FIT) 1966 PSA Level 1966 Tetanus: Every 10yrs 1966 Wellness Visit 1969 Depression Screening/Follow-Up (PHQ-2/9) 1978 HIV Screening 1981 Hepatitis C Screening 1984 Pneumococcal Vaccine: Age 50+ (1 of 1 - PCV) 6 Zoster Vaccines (1 of 2) 2016 COVID-19 Vaccine ( - season) 2024 Influenza Vaccine (Season Ended) 2025 Insurance MEDICARE PART A & B Advance Directives For more information, please contact: [phone] * Full Code - Unverified (Latest Code Status on File) Date Activated Date Inactivated Comments 11/05/2020 7:21 PM 11/21/2020 10:03 PM Care Teams Rolling Chair Pusher Relationship Specialty Start Date End Date Marilee Staples, LEGAL TRANSCRIBER [address] [place] [address] PCP - General Nurse Practitioner 11/05/20
--- OUTSIDE RECORDS SUMMARY | 2025-05-02 11:15 | XMS_ITS | Encounter Summary ---
Author Organization [facility] Address [address] [place] [address] Care Team Providers Care Special Tester Name Role Phone Unavailable Primary Care Provider Unavailabl e Source Comments In the event this information is protected by the Federal Confidentiality of Alcohol and Drug AbusePatient Records regulations: The Federal rules restrict any use of the information to criminally investigate or prosecute any alcohol or drug abuse patient.[facility] Reason for Referral * Outpatient Procedure (Routine) - Authorized Specialty Diagnoses / Procedures Referred By Gume shelley Referred To Contact [facility] Diagnoses Diabetic gastroparesis (HCC) Procedures EGD - THERAPEUTIC, EUS, OR TUBE INTERVENTIONS ESOPHAGOGASTRODUODENOSCOP Y TRANSORAL DIAGNOSTIC STOMACH SURGERY PROCEDURE UNLISTED [place] [address] Phone: tel: fax: [facility] [address] [place] [address] Referral ID Status Reason Start Date Expiration Date Visits Requested Visits Authorized [id number] Authorized Auto-Generat ed Referral Clearance Not Met - Admin/Chairm an/Director Advise to Postpone/Res chedule or Not Proceed 04/24/2025 10/30/2025 1 1 Reason for Visit * Reason Comments Care Coordination Schedule procedure a nd follow up appt Encounter Details Date Type Department Care Team (Late st Contact Info) Description 04/10/2025 Telephone General Surgery [facility] [address] [place] [address] Esau Del Toro, DO [place], [place] [id number] Care Coordination (Schedule procedure and follow up appt///) Social History Tobacco Use Types Packs/Day Years Used Date Smoking Tobacco: Never Passive Smoke Exposure: Never Smokeless Tobacco: Never Area Deprivation Index Answer Date Diego rded National Score (1-100), lower number is lower ri sk 87 10/24/2024 State Score (1-10), lower number is lower risk 8 10/24/2024 Data from: https://www.neighborhoodatlas.medicine.[facility].edu/. Last address used for calculation [address] [facility] 10/24/2024 Sex and Gender Information Value Date Recorded Sex Assigned at Not on file Legal Sex Male 3:23 PM EDT Gender Identity Not on file Sexual Orientation Not on file documented as of this encounter Miscellaneous Notes * Telephone Encounter - Magi Benjamin - 04/25/2025 10:09 AM EDT Post op cancelled * Telephone Encounter - Tamara Lewis RN - 04/25/2025 8:37 AM EDT Patient was a no show for his procedure. GP team, please cancel his follow up appt. Called patient - message on identified voice mail to return call should he wish to reschedule his procedure. * Telephone Encounter - Tamara Lewis RN - 04/17/2025 2:30 PM EDT Patient calling back. He stated that someone from [facility] called him to tell him that his POP procedure has been denied. Patient did not get a denial letter from his insurance. Patient instructed to call Lauren IRAHETA for direction. This RN cannot appeal without a formal letter of denial from Pre Access team. * Telephone Encounter - Tamara Lewis RN - 04/17/2025 2:15 PM EDT Second call attempt. Called patient - message on identified voice mail. Procedure date scheduled on 04/25/2025. Request call back with any additional questions. * Telephone Encounter - Tamara Lewis RN - 04/13/2025 10:53 AM EDT Called the patient and left a message on the identified voicemail requesting a return call. Call-back number was provided. * Telephone Encounter - Magi Benjamin - 04/13/2025 10:41 AM EDT Patient is scheduled for post op with Dr. Del Toro. Patient has questions regarding day of procedure. Please call patient to verify date. * Telephone Encounter - Tamara Lewis RN - 04/10/2025 10:30 AM EDT Patient scheduled for G-POEM 04/25/2025. Postop in 4 weeks to be scheduled by GP team. Aware of need for [facility]. Pre and post G-POEM instructions discussed in detail with written copy provided. Discussed meds and pended. No other questions/concerns at this time. documented in this encounter Plan of Treatment Scheduled Orders Name Type Priority Associated Diagnoses Orde r Schedule EGD - THERAPEUTIC, EUS, OR TUBE INTERVENTIONS Endoscopy Routine Diabetic gastroparesis (HCC) 1 Occurrences starting 04/10/2025 until 04/10/2026 documented as of this encounter Visit Diagnoses Diagnosis Diabetic gastroparesis (HCC)- Primary Type II or unspecified type diabetes mellitus with neurological manifestations, not stated as uncontrolled documented in this encounter
--- OUTSIDE RECORDS SUMMARY | 2025-05-02 11:15 | XMS_ITS | Encounter Summary ---
Author Organization [facility] Address [address] [place] [address] Care Team Providers Care Truck Body Builder Apprentice Name Role Phone Unavailable Primary Care Provider Unavailabl e Source Comments In the event this information is protected by the Federal Confidentiality of Alcohol and Drug AbusePatient Records regulations: The Federal rules restrict any use of the information to criminally investigate or prosecute any alcohol or drug abuse patient.[facility] Reason for Visit * Reason Comments Care Coordination Appeal for GPOEM den ial Encounter Details Date Type Department Care Team (Late st Contact Info) Description 04/18/2025 Telephone General Surgery [facility] [address] [place] [address] Esau Del [place]o, [place] [address] Care Coordination (Appeal for GPOEM denial ) Social History Tobacco Use Types Packs/Day Years Used Date Smoking Tobacco: Never Passive Smoke Exposure: Never Smokeless Tobacco: Never Area Deprivation Index Answer Date Diego rded National Score (1-100), lower number is lower ri sk 87 10/24/2024 State Score (1-10), lower number is lower risk 8 10/24/2024 Data from: https://www.neighborhoodatlas.medicine.[facility]/. Last address used for calculation [address] 10/24/2024 Sex and Gender Information Value Date Recorded Sex Assigned at Not on file Legal Sex Male 3:23 PM EDT Gender Identity Not on file Sexual Orientation Not on file documented as of this encounter Miscellaneous Notes * Telephone Encounter - Tamara Lewis RN - 04/18/2025 3:21 PM EDT G-POEM for date of service 04/25/2025. Appeal with all information including letter, study, JAMIN notes, GES result, EGG result, EGD result,CT result, faxed to [employer] at fax [phone] with confirmation. Appeal also mailed out to [employer] to the address provided. Copy placed in shared clinical office filing cabinet. documented in this encounter Plan of Treatment Not on file documented as of this encounter Visit Diagnoses Not on filedocumented in this encounter
--- OUTSIDE RECORDS SUMMARY | 2025-05-02 11:15 | XMS_ITS | Clinical Summary ---
Author Organization [facility] Address [address] [place] [address] Care Team Providers Care District Court Bailiff Name Role Phone Unavailable Primary Care Provider Unavailabl e Social History Tobacco Use Types Packs/Day Years Used Date Smoking Tobacco: Never Assessed [place] Safety & Environment Answer Date Rec orded Fear of Current or Ex-Partner Not on file Emotionally Abused Not on file 01/13/2024 Physically Abused Not on file 01/13/2024 Sexually Abused Not on file 01/13/2024 Physically or Sexually Abused Not on file Sex and Gender Information Value Date Recorded Sex Assigned at Not on file Legal Sex Male 10:43 PM EDT Gender Identity Not on file Sexual Orientation Not on file Last Filed Vital Signs Vital Sign Reading Time Taken Comments Blood Pressure 119/84 12/26/2018 11:02 AM EST Pulse 92 12/26/2018 11:02 AM EST Temperature - - Respiratory Rate - - Oxygen Saturation - - Inhaled Oxygen Concentration - - Weight 92.5 kg (204 lb) 03/28/2021 1:29 PM EDT Height 175.3 cm (5' 9 ) 12/26/2018 10:59 AM EST Body Mass Index 30.13 12/26/2018 10:59 AM EST Plan of Treatment Not on file
--- OUTSIDE RECORDS SUMMARY | 2025-05-02 11:15 | XMS_ITS | Continuity of Care Document ---
Author [facility] Address [address] [place] [address] Problems Unknown Problems Results Test Result Date/Time Value / Unit Interp. Refere nce Range SARS-CoV-2 (COVID-19), RT-PC R/TMA[[id number]] Collected: 08/29/2021 02:58 PM Specimen Received: 08/30/2021 06:15 PM Source: [facility] SARS-CoV-2 INTERPRETATION [[id number]] 08/31/2021 05:05 AM Negative See Note SARS-CoV-2 RNA NOT DETECTEDN egative results do not preclude SARS-CoV-2 infection and should notbe used as the sole basis for patient management decisions. Negativeresults must be combined with clinical observations, patient history,and epidemiological information. Optimum specimen types and timingfor peak viral levels during infections caused by SARS-CoV-2 have notbeen determined. Collection of multiple specimens or types ofspecimens may be necessary to detect virus. Improper specimencollection and handling, sequence variability under primers/probes,or organism present below the limit of detection may lead to falsenegative results. Positive and negative predictive values oftesting are highly dependent on prevalence. False negative testresults are more likely when prevalence is high. SOURCE [[id number]] 08/31/2021 05:05 AM NASOPHARYNGEAL Note: Methodology is Charo o[place] lina Real-Time RT-PCR. The expected result or reference range is NEGATIVE (Not Detected). For more information regarding COVID-19 testing to include clinicalinformation, methodology detail, intended use, FDA authorization andrecommended fact sheets for patients or healthcare providers, see [employer] Announcement: SARS-CoV-2 (COVID-19) by NAAT at URL below (note,fact sheets are provided by method given in report:[email or web address] Alternatively, see downloadable PDF fact sheet at:[email or web address] Allergies, adverse reactions, alerts No known allergies and adverse reactions Medications No administered medications reported Vital Signs No vital signs reported Social History No smoking Hx information available
--- OUTSIDE RECORDS SUMMARY | 2025-05-02 11:15 | XMS_ITS | Referral Summary ---
Author Organization [facility] Address [address] [place] [address] Care Team Providers Care Hat And Cap Drying Room Attendant Name Role Phone Unavailable Primary Care Provider [...]
--- OUTSIDE RECORDS SUMMARY | 2025-05-02 11:15 | XMS_ITS | Encounter Summary ---
Author Organization [facility] Address [address] [place] [id number] Care Team Providers Care Cryptologic Supervisor Name Role Phone Unavailable Primary Care Provider Unavailabl e Source Comments In the event this information is protected by the Federal Confidentiality of Alcohol and Drug AbusePatient Records regulations: The Federal rules restrict any use of the information to criminally investigate or prosecute any alcohol or drug abuse patient.[facility] Encounter Details Date Type Department Care Team (Late st Contact Info) Description 04/09/2025 Patient Msg Gastroenterology [address] [phone] Javi Thakkar, Research Coordinator Social History Tobacco Use Types Packs/Day Years Used Date Smoking Tobacco: Never Passive Smoke Exposure: Never Smokeless Tobacco: Never Area Deprivation Index Answer Date Diego rded National Score (1-100), lower number is lower ri sk 87 10/24/2024 State Score (1-10), lower number is lower risk 8 10/24/2024 Data from: https://www.neighborhoodatlas.medicine.[facility].edu/. Last address used for calculation [address] [facility] 10/24/2024 Sex and Gender Information Value Date Recorded Sex Assigned at Not on file Legal Sex Male 3:23 PM EDT Gender Identity Not on file Sexual Orientation Not on file documented as of this encounter Plan of Treatment Not on file documented as of this encounter Visit Diagnoses Not on filedocumented in this encounter
--- OUTSIDE RECORDS SUMMARY | 2025-05-02 11:15 | XMS_ITS | Clinical Summary ---
Author Organization [facility] Address [address] [place] [id number] Care Team Providers Care Vein Access Technician Name Role Phone Unavailable Primary Care Provider Unavailabl e Allergies Active Allergy Reactions Criticality Noted Date Comments Venom-Honey Bee Anaphylaxis,Other: S ee Comments,Swelling Medium 11/05/2020 Local swelling Medications lisinopril (ZESTRIL) 10 mg tablet Take 10 mg by mouth. 4 Active famotidine (PEPCID) 40 mg tablet Take 40 mg by mouth. 4 Active atorvastatin (LIPITOR) 40 mg tablet Take 40 mg by mouth. 0 Active hydroCHLOROthiazi de 12.5 mg tablet Take 12.5 mg by mouth. [address] (PROTONIX) 40 mg tablet Take 40 mg by mouth. 4 Active insulin regular, human (NOVOLIN R INJECTION) by INJECTION(UNSP ECIFIED PARENTERAL ROUTES) route. Active metoclopramide HCl (GIMOTI) 15 mg/spray nasal sprayIndications: Diabetic gastroparesis (HCC) Use 1 spray in the nose four times daily. 9.8 mL 2 5 Active sucralfate (CARAFATE) 1 gram tabletIndications :Diabetic gastroparesis (HCC) Take 1 tablet by mouth two times a day. Start taking medication after procedure for 4 weeks. 60 tablet 5 05/10/[address] (PROTONIX) 40 mg tabletIndications :Diabetic gastroparesis (HCC) Take 1 tablet by mouth two times a day. Start taking medication after procedure for 4 weeks. 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, with long-term current use of insulin 11/06/2020 Encounters Date Type Department Care Team Description 04/24/2025 11:59 PM EDT Anesthesia Event [facility] [place] [phone] Ronaldo Draper DO 04/20/2025 GI Preprocedure Call [facility] [place] [phone] Esau Del Toro, 04/18/2025 Telephone General Surgery [address] [address] Esau Del Toro, DO Care Coordination (Appeal for GPOEM denial ) 04/11/2025 Telephone General Surgery [address] [address] Esau Del Toro, DO Medication Preauthorization (PA for Gimoti) 04/10/2025 10:00 AM EDT Office Visit General Surgery [address] [address] Esau Del Toro, DO Diabetic gastroparesis (HCC) (Primary Dx) 04/10/2025 9:00 AM EDT Office Visit Adult Psychology [address] [address] Courtney Flower PSYD Gastroparesis (Primary Dx); Type 2 diabetes mellitus with other specified complication, unspecified whether wire photo operator insulin use (HCC) 04/10/2025 8:00 AM EDT Office Visit Gastroenterology [facility] [address] [place] [address] Jessee Figueredo DO Gastroparesis (Primary Dx) 04/10/2025 Telephone General Surgery [facility] [address] [place] [address] Esau Del Toro DO Care Coordination (Schedule procedure and follow up appt///) 04/10/2025 Travel 04/09/2025 Patient Msg Gastroenterology [address] [phone] Javi Thakkar, Research Coordinator 04/05/2025 Telephone Gastroenterology [facility] [address] [place] [address] Jessee Figueredo, Care Coordination (Gastroparesis clinic: chart review; new patient call ) from Last 3 Months Social History Tobacco Use Types Packs/Day Years Used Date Smoking Tobacco: Never Passive Smoke Exposure: Never Smokeless Tobacco: Never Tobacco Cessation:Counseling Given: Not Answered Area Deprivation Index Answer Date Diego rded National Score (1-100), lower number is lower ri sk 87 10/24/2024 State Score (1-10), lower number is lower risk 8 10/24/2024 Data from: https://www.neighborhoodatlas.medicine.[facility].edu/. Last address used for calculation [address] 10/24/2024 Sex and Gender Information Value Date Recorded Sex Assigned at Not on file Legal Sex Male 3:23 PM EDT Gender Identity Not on file Sexual Orientation Not on file Last Filed Vital Signs Vital Sign Reading Time Taken Comments Blood Pressure 149/84 04/10/2025 10:30 AM EDT Pulse 101 04/10/2025 10:30 AM EDT Temperature 36.8 C (98.3 F) 10/24/2024 8:45 AM EST Respiratory Rate - - Oxygen Saturation 96% 10/24/2024 8:45 AM EST Inhaled Oxygen Concentration - - Weight 115 kg (253 lb 8.5 oz) 04/10/2025 10:30 A M EDT Height 177.8 cm (5' 10 ) 04/10/2025 10:30 AM EDT Body Mass Index 36.38 04/10/2025 10:30 AM EDT Plan of Treatment Health Maintenance Due Date Last Done Comments Diabetic Foot Exam 1976 Dilated Retinal Exam 1976 Annual PCP Team Chronic Dise ase Visit 1984 Depression Screening 1984 HIV Screening 1984 Hepatitis C Screening 1984 LDL Cholesterol 1984 Hepatitis B Vaccine (1 of 3 - 19+ 3-dose series) 1985 Pneumococcal Vaccine: 50+ (1 of 2 - PCV) 1985 CT Colonography 2011 Cologuard (FIT-DNA) 2011 Colonoscopy 2011 Colorectal Cancer Screening 2011 Fecal Occult Blood 2011 Prostate Cancer Screening Discussion 2011 Sigmoidoscopy 2011 Shingrix Vaccine (1 of 2) 2016 Covid-19 Vaccine ( - 2023-2 5 season) 2024 Medicare Advantage Annual We llness Visit 11/22/2024 Urine Albumin:Creatinine Ratio 05/01/2025 0 05/01/2024, 11/06/2020, 05/12/2018 HbA1C 07/11/2025 04/10/2025, 04/22, 05/01/2024, Additional history exists Influenza Vaccine (Season Ended) 2025 DTaP,Tdap,Td Vaccine (2 - Td or Tdap) 01/04/2033 01/04/2023 Procedures Procedure Name Priority Date/Time Associated Diagnosis Comments CREATININE (SPECIAL CHEM) Routine 04/10/2025 11:25 AM EDT Gastroparesis ORGANIC ACIDS UR, QUANT W/CONSULT Routine 04/10/2025 11:25 AM EDT Gastroparesis SED RATE WESTERGREN Routine 04/10/2025 1 1:25 AM EDT Gastroparesis C-REACTIVE PROTEIN (CRP) Routine 04/10/2025 11:25 AM EDT Gastroparesis IGM Routine 04/10/2025 11:25 AM EDT Gastroparesis IGG Routine 04/10/2025 11:25 AM EDT Gastroparesis IGA BLD Routine 04/10/2025 11:25 AM EDT Gastroparesis ORGANIC ACIDS UR, QUANT W/CONSULTATION Routine 04/10/2025 11:25 AM EDT Gastroparesis GLUTAMIC AC DECARBOXYLASE AB Routine 04/10/2025 11:25 AM EDT Gastroparesis VOLTAGE-GATED POTASSIUM SZYMANSKI AB Routine 04/10/2025 11:25 AM EDT Gastroparesis VOLTAGE GATED CA IGG Routine 04/10/2025 11:25 AM EDT Gastroparesis ACETYLCHOLINE REC BINDING AB Routine 04/10/2025 11:25 AM EDT Gastroparesis CARNITINE FREE & TOTAL, PLASMA Routine 04/10/2025 11:25 AM EDT Gastroparesis AMINO ACIDS, PLASMA W/ CONSULTATION Routine 04/10/2025 11:25 AM EDT Gastroparesis PYRUVATE+LACTATE BL Routine 04/10/2025 1 1:25 AM EDT Gastroparesis HEMOGLOBIN A1C Routine 04/10/2025 11:25 AM EDT Gastroparesis LD LACTATE DEHYDRO Routine 04/10/2025 11 :25 AM EDT Gastroparesis CK CREATINE KINASE Routine 04/10/2025 11 :25 AM EDT Gastroparesis PT ED PATIENT INFORMATION 03/11/2025 from Last 3 Months Results * CARNITINE FREE & TOTAL, PLASMA (04/10/2025 11:25 AM EDT) Free L-carnitine 39.0 20.0 - 53.0 umol/L 04/13/2025 9:38 AM EDT [facility] Total L-carnitine 49.3 26.4 - 66.0 umol/L 04/13/2025 9:38 AM EDT [facility] Esterified L-Carnitine 10.3 3.0 - 15.6 umol/L 04/13/2025 9:38 AM EDT [facility] Esterified Carnitine / Free Carnitine Ratio 0.3 0.1 - 0.7 04/13/2025 9:38 AM EDT [facility] Comment: NOTE: The determination of the plasma free carnitine level and of the total free and acylcarnitine levels is dependent on multiple factors, including the nutritional status of the subject, his/her underlying disorder, concurrent illnesses and, sometimes, medications that he/she is receiving. Consequently, a normal or minimally abnormal result with this test does not always rule-out the possibility of a disorder of carnitine or fatty acid metabolism. This test does not by itself provide information on the levels of various plasma acylcarnitine species and measurement of the latter is often needed for the diagnostic evaluation and follow-up of disorders of mitochondrial fatty acid beta-oxidation and some other disorders associated with pathologic levels of selected acylcarnitine species. This test was developed and its performance characteristics determined by the Pathology and Laboratory Medicine [place] at the [facility]. The U.S. Food and Drug Administration has not approved or cleared this test, however, FDA clearance or approval is not currently required for clinical use. Blood BLOOD SPECIMEN / Unknown Venipuncture / Unknown 04/10/2025 11:25 AM EDT 04/10/2025 11:28 AM EDT [facility] S Figueredo DO LABORATORY Final Result [facility] [address] [place] [address], * (ABNORMAL) ORGANIC ACIDS UR, QUANT W/CONSULT (04/10/2025 11:25 AM EDT) Lactate, Urine 23.5 2.9 - 47.2 umol/mmo lCr 04/13/2025 10:47 AM EDT [facility] Pyruvate, Urine 0.6 0.1 - 2.6 umol/mmo [facility] 04/13/2025 10:47 AM EDT [facility] 2-HydroxyButyrate, Urine 1.0 0.0 - 2.7 umol/mmo [facility] 04/13/2025 10:47 AM EDT [facility] Oxalic Acid, Urine 1.7 0.7 - 12.4 umol/mmo [facility] 04/13/2025 10:47 AM EDT [facility] 3-HydroxyButyrate, Urine <1.6 0.1 - 2.6 umol/mmo [facility] 04/13/2025 10:47 AM EDT [facility] 2OH-Isovalerate, Urine 0.1 0.0 - 0.1 umol/mmo [facility] 04/13/2025 10:47 AM EDT [facility] AcetoAcetate, Urine <0.9(H) 0.0 - 0.5 umol/mmo [facility] 04/13/2025 10:47 AM EDT [facility] 3-OH,2-MethylButyra te, Urine <0.6 0.0 - 1.3 umol/mmo [facility] 04/13/2025 10:47 AM EDT [facility] Malonate, Urine 0.0 0.0 - 0.1 umol/mmo [facility] 04/13/2025 10:47 AM EDT [facility] 3-HydroxyIsovalerat e, Urine 2.9 2.1 - 27.3 umol/mmo [facility] 04/13/2025 10:47 AM EDT [facility] MethylMalonate, Urine <0.4 0.0 - 0.6 umol/mmo [facility] 04/13/2025 10:47 AM EDT [facility] Benzoic Acid, Urine <12.2 0.0 - 14.6 umol/mmo [facility] 04/13/2025 10:47 AM EDT [facility] EthylMalonate, Urine 2.7 0.5 - 6.2 umol/mmo [facility] 04/13/2025 10:47 AM EDT [facility] Succinate, Urine 0.7 0.3 - 27.4 umol/mmo [facility] 04/13/2025 10:47 AM EDT [facility] MethylSuccinate, Urine 0.4 0.0 - 1.4 umol/mmo [facility] 04/13/2025 10:47 AM EDT [facility] Uracil, Urine <0.4 0.0 - 5.1 umol/mmo [facility] 04/13/2025 10:47 AM EDT [facility] Fumarate, Urine 1.9 0.3 - 2.6 umol/mmo [facility] 04/13/2025 10:47 AM EDT [facility] IsoButyrylGlycine, Ur <0.1 0.0 - 1.2 umol/mmo [facility] 04/13/2025 10:47 AM EDT [facility] Glutarate, Urine 0.1 0.0 - 1.4 umol/mmo [facility] 04/13/2025 10:47 AM EDT [facility] 3-MethylGlutarate, Urine 0.2 0.0 - 0.6 umol/mmo [facility] 04/13/2025 10:47 AM EDT [facility] ButyrylGlycine, Urine 0.0 0.0 - 0.7 umol/mmo [facility] 04/13/2025 10:47 AM EDT [facility] 2-MethylButyrylGlyc ine, Ur <0.1 0.0 - 0.4 umol/mmo [facility] 04/13/2025 10:47 AM EDT [facility] 3MethylGlutaconic Acid, Urine 0.3 0.0 - 2.0 umol/mmo [facility] 04/13/2025 10:47 AM EDT [facility] Malate, Urine 0.8 0.0 - 1.1 umol/mmo [facility] 04/13/2025 10:47 AM EDT [facility] Adipic Acid, Urine 1.3 0.3 - 9.2 umol/mmo [facility] 04/13/2025 10:47 AM EDT [facility] 7-Ktx-Uxvedlr, Urine 1.5 0.4 - 3.1 umol/mmo [facility] 04/13/2025 10:47 AM EDT [facility] 3-MethylCrotonylGly cine,Urine <0.3 <0.3 umol/mmo [facility] 04/13/2025 10:47 AM EDT [facility] 3-HydroxyGlutaric Acid, Urine 0.0 0.0 - 0.7 umol/mmo [facility] 04/13/2025 10:47 AM EDT [facility] 2-HydroxyGlutaric Acid, Urine <0.4(L) 0.6 - 17.7 umol/mmo [facility] 04/13/2025 10:47 AM EDT [facility] Alpha-KetoGlutarate , Urine 6.2 0.2 - 42.7 umol/mmo [facility] 04/13/2025 10:47 AM T [facility] HexanoylGlycine, Urine <0.1 0.0 - 0.1 umol/mmo [facility] 04/13/2025 10:47 AM T [facility] 4-HydroxyPhenylAcet ate, Urine 10.8 5.7 - 147.5 umol/mmo [facility] 04/13/2025 10:47 AM EDT [facility] N-AcetylAspartic Acid, Urine 0.8 0.1 - 8.9 umol/mmo [facility] 04/13/2025 10:47 AM EDT [facility] Suberic Acid, Urine 0.9 0.0 - 7.4 umol/mmo [facility] 04/13/2025 10:47 AM T [facility] SuccinylAcetone, Urine <0.4 <0.4 umol/mmo [facility] 04/13/2025 10:47 AM EDT [facility] 2-OxoAdipic Acid, Urine <1.6 0.0 - 3.3 umol/mmo [facility] 04/13/2025 10:47 AM EDT [facility] Aconitate, Urine 19.3 8.5 - 109.6 umol/mmo [facility] 04/13/2025 10:47 AM [facility] IsoCitric Acid, Urine 62.1 9.1 - 271.9 umol/mmo [facility] 04/13/2025 10:47 AM EDT [facility] MethylCitrate, Urine <1.1 1.0 - 13.9 umol/mmo [facility] 04/13/2025 10:47 AM EDT [facility] Sebacic Acid, Urine <3.4(H) 0.0 - 0.3 umol/mmo [facility] 04/13/2025 10:47 AM EDT [facility] 4-HydroxyPhenyl Lactate,Urine 20.8 1.3 - 23.0 umol/mmo [facility] 04/13/2025 10:47 AM EDT [facility] 4-HydroxyPhenyl Pyruvate,Urine 0.0 <=0.0 umol/mmo [facility] 04/13/2025 10:47 AM EDT [facility] N-AcetylTyrosine, Urine 0.3 0.0 - 1.2 umol/mmo [facility] 04/13/2025 10:47 AM EDT [facility] SuberylGlycine, Ur 0.0 <=0.0 umol/mmo [facility] 04/13/2025 10:47 AM EDT [facility]20 [facility]: This urine organic acid analysis shows no significant abnormalities. NOTE: The biochemical expression of urinary organic acids in the genetic organic acidurias can be dependent on the nutritional status of the subject, the underlying genetic abnormality that he/she may have, concurrent illnesses and other factors. This is also true for other disorders for which urinary organic acid analysis is sometimes a diagnostic tool such as disorders of mitochondrial oxidative phosphorylation, disorders of mitochondrial fatty acid beta-oxidation, and some nutritional deficiencies. Consequently and unless otherwise stated, a normal or non-diagnostic test result on urinary organic acid analysis does not always rule-out the possibility of the types of disorders noted above. This test was developed and its performance characteristics determined by the [facility]. It has not been cleared or approved by the US Food and Drug Administration. The FDA had determined that such clearance or approval is not necessary. UOA Review Reviewed by Forrest Gomez MD, Ph.D ([id number]) 04/13/2025 10:47 AM EDT [facility] Creatinine, Ur (Special Chem) 275.7 46.8 - 314.5 mg/dL 04/13/2025 10:47 AM EDT [facility] Urine URINE SPECIMEN / Unknown Non Blood / Unknown 04/10/2025 11:25 AM EDT 04/10/2025 11:[address] [facility] Figueredo LABORATORY Final Result [facility] [address] [address], * (ABNORMAL) AMINO ACIDS, PLASMA W/ CONSULTATION (04/10/2025 11:25 AM EDT) Taurine 58 54 - 210 umol/L 04/13/2025 4:21 PM EDT [facility] Aspartic Acid 3 1 - 25 umol/L 04/13/2025 4:21 PM EDT [facility] Hydroxyproline 04/13/2025 4:21 PM EDT [facility] Comment:Unable to assay. Miranda lytical difficulty Threonine 109 60 - 225 umol/L 04/13/2025 4:21 PM EDT [facility] Serine 41(L) 58 - 181 umol/L 04/13/2025 4:21 PM EDT [facility] Asparagine 31(L) 35 - 74 umol/L 04/13/2025 4:21 PM EDT [facility] Glutamic Acid 82 10 - 131 umol/L 04/13/2025 4:21 PM EDT [facility] Glutamine 478 205 - 756 umol/L 04/13/2025 4:21 PM EDT [facility] Sarcosine <2(H) <=0 umol/L 04/13/2025 4:21 PM EDT [facility] Alpha-Aminoadipic Acid <2 0 - 6 umol/L 04/13/2025 4:21 PM EDT [facility] Proline 237 97 - 329 umol/L 04/13/2025 4:21 PM EDT [facility] Glycine 125(L) 151 - 490 umol/L 04/13/2025 4:21 PM EDT [facility] Alanine 412 177 - 583 umol/L 04/13/2025 4:21 PM EDT [facility] Citrulline 38 12 - 55 umol/L 04/13/2025 4:21 PM EDT [facility] Valine 227 119 - 336 umol/L 04/13/2025 4:21 PM EDT [facility] Methionine 19 10 - 42 umol/L 04/13/2025 4:21 PM EDT [facility] Alloisoleucine <2 0 - 2 umol/L 04/13/2025 4:21 PM EDT [facility] Cystine 50 5 - 82 umol/L 04/13/2025 4:21 PM EDT [facility] Isoleucine 62 30 - 108 umol/L 04/13/2025 4:21 PM EDT [facility] Leucine 109 72 - 201 umol/L 04/13/2025 4:21 PM EDT [facility] Tyrosine 68 34 - 112 umol/L 04/13/2025 4:21 PM EDT [facility] Phenylalanine 63 35 - 85 umol/L 04/13/2025 4:21 PM EDT [facility] Hydroxylysine <2(H) <=0 umol/L 04/13/2025 4:21 PM EDT [facility] Ornithine 43(L) 48 - 195 umol/L 04/13/2025 4:21 PM EDT [facility] Lysine 143 116 - 296 umol/L 04/13/2025 4:21 PM EDT [facility] Histidine 53(L) 72 - 124 umol/L 04/13/2025 4:21 PM EDT [facility] Arginine 73 15 - 128 umol/L 04/13/2025 4:21 PM EDT [facility] Amino Acids Review, Plasma Reviewed by Forrest Gomez MD, Ph.D ([id number]) 04/13/2025 4:21 PM EDT [facility] Amino Acid Consultation, Plasma 04/13/2025 4:21 PM EDT [facility] Comment: This plasma amino acid analysis is mainly notable for low levels of serine and glycine. Low levels of plasma serine and glycine is potentially related to the patient's clinical history of diabetes. Reference intervals from Jovani E, Pat MG, Amarjit MANDEEP, and Anderson DK: Biochemical Genetics: A Laboratory Manual, Copyright 1989 by [employer] Reference intervals not established for some amino acids. This test was developed and its performance characteristics determined by the [facility] Department of Pathology and Laboratory Medicine. It has not been cleared or approved by the FDA. The [facility] Department of Pathology and Laboratory Medicine is regulated under CLIA as qualified to perform high- complexity testing. This test is used for clinical purposes. It should not be regarded as investigational or for research. Blood BLOOD SPECIMEN / Unknown Venipuncture / Unknown 04/10/2025 11:25 AM EDT 04/10/2025 11:28 AM EDT [facility] LABORATORY Final Result Performing Organization Address City/[facility] Co de Phone Number [facility] [address] [place], [place] [id number], [place] * CREATININE (SPECIAL CHEM) (04/10/2025 11:25 AM EDT) Urine URINE SPECIMEN / Unknown Non Blood / Unknown 04/10/2025 11:25 AM EDT 04/10/2025 11:28 AM EDT [facility] LABORATORY Final Result Performing Organization Address [facility] Co de Phone Number [facility] [address] [place] [id number], [place] * VOLTAGE-GATED POTASSIUM SZYMANSKI AB (04/10/2025 11:25 AM EDT) VOLTAGE-GATED POTASSIUM CHANNEL AB, SER 0 0 - 31 pmol/L 04/12/2025 1:52 PM EDT [facility] Comment: INTERPRETIVE INFORMATION: Voltage-Gated Potassium Channel (VGKC) Antibody, Serum Negative ....... 31 pmol/L or less Indeterminate... 32 - 87 pmol/L Positive ....... 88 pmol/L or greater Voltage-Gated Potassium Channel (VGKC) antibodies are associated with neuromuscular weakness as found in neuromyotonia (also known as Issacs syndrome) and Morvan syndrome. VGKC antibodies are also associated with paraneoplastic neurological syndromes and limbic encephalitis; however, VGKC antibody-associated limbic encephalitis may be associated with antibodies to leucine-rich, glioma-inactivated 1 protein (LGI1) or contactin-associated protein-2 (CASPR2) instead of potassium channel antigens. A substantial number of VGKC-antibody positive cases are negative for LGI1 and CASPR2 IgG autoantibodies, not all VGKC complex antigens are known. The clinical significance of this test can only be determined in conjunction with the patient's clinical history and related laboratory testing. This test was developed and its performance characteristics determined by [facility]. It has not been cleared or approved by the US Food and Drug Administration. This test was performed in a CLIA certified laboratory and is intended for clinical purposes. Performed By: [facility] [address] [place] [id number] [employer] Sales Leader: Warren Simmons MD, PhD CLIA Number: [id number] Blood BLOOD SPECIMEN / Unknown Venipuncture / Unknown 04/10/2025 11:25 AM EDT 04/10/2025 11:28 AM EDT [facility] LAB[facility] Final Result [facility] [address] [place] [address] * ACETYLCHOLINE REC BINDING AB (04/10/2025 11:25 AM EDT) Acetylcholine, Binding, Qual Negative Negative 04/11/2025 4:13 PM EDT [facility] Comment:Anti-acetylcholine r eceptor binding antibody test is used as an aid in diagnosis of myasthenia gravis. A negative result cannot exclude myasthenia gravis. Clinical correlation is required. Acetylcholine Receptor Binding <0.02 <0.21 nmol/L 04/11/2025 4:13 PM EDT [facility] Blood BLOOD SPECIMEN / Unknown Venipuncture / Unknown 04/10/2025 11:25 AM EDT 04/10/2025 11:28 AM EDT [facility] LABORATORY Final Result Performing Organization Address City/[facility] Co de Phone Number [facility] [address] [place] [address], * VOLTAGE GATED CA IGG (04/10/2025 11:25 AM EDT) Pathologist [facility] P/Q-Type Calcium Channel Antibody 0.0 0.0 - 24.5 pmol/L 04/12/2025 7:03 PM EDT [facility] Comment: INTERPRETIVE INFORMATION: P/Q-Type Calcium Channel Antibody 0.0 to 24.5 pmol/L ............. Negative 24.6 to 45.6 pmol/L ............ Indeterminate 45.7 pmol/L or greater.......... Positive This test was developed and its performance characteristics determined by [facility]. It has not been cleared or approved by the [place] Food and Drug Administration. This test was performed in a CLIA certified laboratory and is intended for clinical purposes. Performed By: [facility] [address] [place] [address] Footwear Sales Leader: Warren Simmons MD, PhD CLIA Number: [id number] Blood BLOOD SPECIMEN / Unknown Venipuncture / Unknown 04/10/2025 11:25 AM EDT 04/10/2025 11:28 AM EDT Jessee Galeana Figueredo LABORATORY Final Result [facility] [address] [place] [address] * LACTATE DEHYDROGENASE (04/10/2025 11:25 AM EDT) Pathologist [facility] LD 159 135 - 225 U/L 04/10/2025 9:52 PM EDT [facility] Blood BLOOD SPECIMEN / Unknown Venipuncture / Unknown 04/10/2025 11:25 AM EDT 04/10/2025 11:28 AM EDT Jessee Fgiueredo LABORATORY Final Result Performing Organization Address [facility] Co de Phone Number [facility] [address] [phone], [place] * GLUTAMIC AC DECARBOXYLASE AB (04/10/2025 11:25 AM EDT) Glutamic Acid Decarboxylas Ab Qualitative Negative Negative 04/13/2025 2:30 PM EDT [facility] Glutamic Acid Decarboxylase Ab <5.0 <=5.0 IU/mL 04/13/2025 2:30 PM EDT [facility] Comment:Anti-glutamic acid d ecarboxylase antibody (GAD65) test usually in conjunction with another test such as IA-2 antibody is used as an aid in establishing the autoimmune nature of previously-diagnosed type I diabetes mellitus or in predicting of progression to type I diabetes mellitus in patients with certain autoimmune diseases including autoimmune gastritis among others. It is also used as an aid in diagnosis of stiff person syndrome and certain autoimmune nervous system diseases. Clinical correlation is required. Blood BLOOD SPECIMEN / Unknown Venipuncture / Unknown 04/10/2025 11:25 AM EDT 04/10/2025 11:28 AM EDT Jessee Figueredo LABORATORY Final Result Performing Organization Address [facility] Co de Phone Number [facility] [address] [phone], [place] * (ABNORMAL) SEDIMENTATION RATE, WESTERGREN (04/10/2025 11:25 AM EDT) Sed Rate, Westergren 66(H) 0 - 15 mm/hr 04/10/2025 6:12 PM EDT [facility] Blood BLOOD SPECIMEN / Unknown Venipuncture / Unknown 04/10/2025 11:25 AM EDT 04/10/2025 11:28 AM EDT Jessee Figueredo LABORATORY Final Result Performing Organization Address City/[facility] Co de Phone Number [facility] [address] [address], [place] * PYRUVATE+LACTATE BL (04/10/2025 11:25 AM EDT) Lactate 2.1 0.5 - 2.2 mmol/L 04/11/2025 10:31 PM EDT [facility] Comment:This test was develo ped, and its performance characteristics determined by the [facility] Department of Pathology and Laboratory Medicine. It has not been cleared or approved by the FDA. The [facility] Department of Pathology and Laboratory Medicine is regulated under CLIA as qualified to perform high- complexity testing. This test is used for clinical purposes. It should not be regarded as investigational or for research. Pyruvic Acid 0.05 0.03 - 0.10 mmol/L 04/11/2025 10:31 PM EDT [facility] Comment:This test was Melodeoelo ped, and its performance characteristics determined by the [facility] Department of Pathology and Laboratory Medicine. It has not been cleared or approved by the FDA. The [facility] Department of Pathology and Laboratory Medicine is regulated under CLIA as qualified to perform high- complexity testing. This test is used for clinical purposes. It should not be regarded as investigational or for research. Blood BLOOD SPECIMEN / Unknown Venipuncture / Unknown 04/10/2025 11:25 AM EDT 04/10/2025 11:28 AM EDT us Hooks S Figueredo DO LABORATORY Final Result [facility] [address] [address], [place] * IMMUNOGLOBULIN M (04/10/2025 11:25 AM EDT) IgM 110 40 - 230 mg/dL 04/10/2025 8:58 PM EDT [facility] Blood BLOOD SPECIMEN / Unknown Venipuncture / Unknown 04/10/2025 11:25 AM EDT 04/10/2025 11:28 AM EDT us Jessee S Figueredo DO LABORATORY Final Result Performing Organization Address City/[facility] Co de Phone Number [facility] [address] [address], [place] * (ABNORMAL) IMMUNOGLOBULIN G (04/10/2025 11:25 AM EDT) IgG 3,158(H) 700 - 1,600 mg/dL 04/10/2025 8:58 PM EDT [facility] Blood BLOOD SPECIMEN / Unknown Venipuncture / Unknown 04/10/2025 11:25 AM EDT 04/10/2025 11:28 AM EDT Jessee Galeana [facility] LABORATORY Final Result Performing Organization Address [facility] Co de Phone Number [facility] [address] [address], [place] * (ABNORMAL) IMMUNOGLOBULIN A (04/10/2025 11:25 AM EDT) IgA 608(H) 70 - 400 mg/dL 04/10/2025 8:58 PM EDT [facility] Blood BLOOD SPECIMEN / Unknown Venipuncture / Unknown 04/10/2025 11:25 AM EDT 04/10/2025 11:28 AM EDT [facility] Final Result Performing Organization Address [facility] Co de Phone Number [facility] [address] [address], [place] * (ABNORMAL) HEMOGLOBIN A1C (04/10/2025 11:25 AM EDT) Hemoglobin A1C 11.0(H) 4.3 - 5.6 % 04/10/2025 9:27 PM EDT [facility] Comment:Serbian Diabetes As sociation guidelines indicate that patients with HgbA1c in the range 5.7-6.4% are at increased risk for development of diabetes, and intervention by lifestyle modification may be beneficial. HgbA1c greater or equal to 6.5% is considered diagnostic of diabetes. Estimated Average Glucose 269 mg/dL 04/10/2025 9:27 PM EDT [facility] Comment:eAG: (Estimated aver age glucose) is a calculated value from HgbA1c and is sales representative consultant of the average blood glucose level in the last 2-3 month period. Blood BLOOD SPECIMEN / Unknown Venipuncture / Unknown 04/10/2025 11:25 AM EDT 04/10/2025 11:28 AM EDT [facility] LABORATORY Final Result [facility] [address] [address], [place] * (ABNORMAL) CREATINE KINASE/CK (04/10/2025 11:25 AM EDT) CK 41(L) 51 - 298 U/L 04/10/2025 1:02 PM EDT [facility] Blood BLOOD SPECIMEN / Unknown Venipuncture / Unknown 04/10/2025 11:25 AM EDT 04/10/2025 11:28 AM EDT [facility] LABORATORY Final Result Performing Organization Address [facility] de Phone Number [facility] [place] [phone], [place] * (ABNORMAL) C-REACTIVE PROTEIN (04/10/2025 11:25 AM EDT) CRP 2.7(H) <0.9 mg/dL 04/10/2025 1:02 PM EDT [facility] Blood BLOOD SPECIMEN / Unknown Venipuncture / Unknown 04/10/2025 11:25 AM EDT 04/10/2025 11:28 AM EDT [facility] Final Result Performing Organization Address City/[facility] Co de Phone Number [facility] [address] [place] [phone], [place] * PT ED PATIENT INFORMATION (03/11/2025) 03/11/2025 Narrative [facility] - 04/11/2025 Provider FIGUEREDO your patient RASHEL SANCHO has not started their Christ program, time has . Christ program: PATIENT SAFETY INSTRUCTIONS FOR HEALTHCARE SETTINGS Jessee Figueredo DO [facility] Final Result [facility] from Last 3 Months Insurance [employer] MEDICARE
--- OUTSIDE RECORDS SUMMARY | 2025-05-02 11:15 | XMS_ITS | Encounter Summary ---
Author Organization [facility] Address [address] [place] [address] Care Team Providers Care Watch Train Inspector Name Role Phone Unavailable Primary Care Provider Unavailabl e Source Comments In the event this information is protected by the Federal Confidentiality of Alcohol and Drug AbusePatient Records regulations: The Federal rules restrict any use of the information to criminally investigate or prosecute any alcohol or drug abuse patient.[facility] Encounter Details Date Type Department Care Team (Late st Contact Info) Description 04/20/2025 GI Preprocedure Call [facility] [place] [address] Esau Del Toro, DO [place], [place] [phone] Social History Tobacco Use Types Packs/Day Years Used Date Smoking Tobacco: Never Passive Smoke Exposure: Never Smokeless Tobacco: Never Area Deprivation Index Answer Date Diego rded National Score (1-100), lower number is lower ri sk 87 10/24/2024 State Score (1-10), lower number is lower risk 8 10/24/2024 Data from: https://www.neighborhoodatlas.medicine.[facility].edu/. Last address used for calculation [address] [place] [address] 10/24/2024 Sex and Gender Information Value Date Recorded Sex Assigned at Not on file Legal Sex Male 3:23 PM EDT Gender Identity Not on file Sexual Orientation Not on file documented as of this encounter Nursing Notes * Robbin Ackerman RN - 04/20/2025 11:02 AM EDT 1102 Spoke to patient to give procedure day instructions. Patient states he was told it was denied . Attempted to get clarification, but was unable to. Phone number to scheduling office provided to patient so that he can tell them the same thing I was told. No instructions given. documented in this encounter Plan of Treatment Not on file documented as of this encounter Visit Diagnoses Not on filedocumented in this encounter
== END 2025-05-02 11:12 | disposition home or self-care (01) ==
LOC: WC 11:12
PROVIDERS: PCP Nurse Practitioner; Visit Provider Physician Assistant
DX: E11.621 Type 2 diabetes mellitus with foot ulcer (principal); L97.415 Non-pressure chronic ulcer of right heel and midfoot with muscle involvement without evidence of necrosis
CPT/HCPCS: G0463

== ENCOUNTER 2025-05-16 14:23 | Outpatient (OUT) | payer MEDICARE, SELFPAY ==
--- OUTSIDE RECORDS SUMMARY | 2025-05-02 14:27 | XMS_ITS | Encounter Summary ---
Author Organization [facility] Weddingful [facility] tem Address [id number] [address] [place] [address] Care Team Providers Care Glove Sewer Name Role Phone Brendalauren Jessee Duran DO Primary Care Provider [phone] Encounter Details Date Type Department Care Team (Latest Contact Info) Description 05/02/2025 2:27 PM EDT - 05/02/2025 11:59 PM EDT Hospital Encounter [facility] - Radiology [address] [place] [phone] Chronic midline low back pain without sciatica Discharge Disposition: Home Social History Tobacco Use Types Packs/Day Years [...] Never 02/07/2021 How often do you attend mandaen or voodoo serv ices? Never 02/07/2021 Do you belong to any clubs o r organizations such as mandaen groups, unions, fraternal or athletic groups, or [...] Answer Date Recorded Total Score 7 04/26/2025 [facility] [place] of Occupat ional Health - Occupational Stress [...] Recorded Do you need help finding a [employer] [facility] career center and/or a training program? [...] on file documented as of this encounter Medications at Time of Discharge BD VERO 2ND GEN PEN NEEDLE 32 gauge x 5/32 needle 1 Pen Needle by other route 3 (three) times a day. 05/02/2025 cholecalciferol, vitamin D3, 2,000 units capsule Take 1 capsule (2,000 Units total) by mouth in the morning. dorzolamide (TRUSOPT) 2 % ophthalmic solutionIndicatio ns:ocular hypertension Administer 1 drop to the right eye in the morning and 1 drop before bedtime. Indications: increased pressure in the eye. latanoprost (XALATAN) 0.005 % ophthalmic solution Administer 1 drop into the left eye once daily at bedtime. INSTILL 1 DROP INTO LEFT EYE AT BEDTIME 03/28/2025 atorvastatin (LIPITOR) 40 mg tabletIndications :hyperlipidemia Take 1 tablet (40 mg total) by mouth daily with breakfast for 360 days Indications: excessive fat in the blood. 90 tablet 3 04/26/2025 05/10/20 25 hydroCHLOROthiazi de (HYDRODIURIL) 12.5 mg tabletIndications :Benign essential HTN Take 1 tablet (12.5 mg total) by mouth daily. 90 tablet 04/26/2025 05/10/20 25 insulin glargine (LANTUS) 100 unit/mL injectionIndicati ons:Type 2 diabetes mellitus with foot ulcer, with long-term current use of insulin ([facility] Inject 0.3 mL (30 Units total) under the skin nightly. 10 mL 1 04/26/2025 05/10/20 25 insulin lispro (ADMELOG SOLOSTAR U-100 INSULIN) 100 unit/mL insulin penIndications:Ty pe 2 diabetes mellitus with foot ulcer, with long-term current use of insulin ([facility]) 70-150 0 units 151-174 2 units 175-199 4 units 200-224 6 units 225-249 8 units 250-274 10 units 275-299 12 units 300-350 14 units >350 16 units and call provider 15 mL 04/26/2025 05/10/20 25 lisinopriL (PRINIVIL,ZESTRIL ) 10 mg tabletIndications :hypertension Take 1 tablet (10 mg total) by mouth daily with breakfast for 90 days Indications: high blood pressure. 90 tablet 04/26/2025 05/10/20 25 pantoprazole (PROTONIX) 40 mg EC tabletIndications :Gastroesophageal reflux disease, unspecified whether esophagitis present Take 1 tablet (40 mg total) by mouth in the morning. 90 tablet 04/26/2025 05/10/20 25 pen needle, diabetic 29 gauge x 15/32 needleIndications :Type 2 diabetes mellitus with foot ulcer, with long-term current use of insulin ([facility]) 1 Pen Needle by miscellaneous route in the morning and 1 Pen Needle at noon and 1 Pen Needle in the evening and 1 Pen Needle before bedtime. 100 each 3 04/26/2025 05/10/20 25 TRUE METRIX GLUCOSE TEST STRIP stripIndications: Type 2 diabetes mellitus with foot ulcer, with long-term current use of insulin ([facility]) 1 strip by other route 4 (four) times a day before meals and nightly. 200 strip 5 04/26/2025 05/10/20 25 documented as of this encounter Plan of Treatment Upcoming Encounters Date Type Department Care Team (Late st Contact Info) Description 08/10/2025 10:00 AM EDT Office Visit [facility] [address] [place] [address] [address] [place] [phone] Jessee Molina, [address] [place] [address], [facility], [address] [place] [phone] documented as of this encounter Goals Goal Patient Goal Type Associated Problems Recent Progress Patient-Stated? Author <enter goal here> General Yes Yulia Ocasio, RN Note: Evaluation of progress towards goal: pa care home facility documented as of this encounter Procedures Procedure Name Priority Date/Time Associated Diagnosis Comments XR SPINE LUMB COMP INCL BEND 6+ VWS Routine 05/02/2025 2:56 PM EDT Chronic midline low back pain without sciatica documented in this encounter Results * X-ray spine lumbar complete including flexion and extension 6+ views (05/02/2025 2:56 PM EDT) Anatomical Region Laterality Modality MSK, Neuro, Spine, L-spine N/A Compu andrés Radiography 05/04/2025 3:21 PM EDT Narrative 05/04/2025 3:25 PM EDT Lumbosacral spine: 05/02/2025 2:31 PM. Reason for study: Chronic midline low back pain without sciatica. Comparison: Lumbosacral spine radiograph from 04/06/2023 Technique: AP, lateral, bilateral oblique, and lateral flexion/extension views of the lumbosacral spine were obtained. Findings/impression: 1. There are 5 nonrib-bearing vertebrae in lumbar spine. The sacroiliac joints are unremarkable. 2. Grade 1 retrolisthesis of L3 on L4 without significant change on flexion/extension. 3. Similar-appearing vertebral body heights. Mild lumbosacral degenerative disc disease. Anterior bridging osteophytes most pronounced at L2-L4 and T11/T12. 4. No spondylolysis Finalized by Vivien Feliz MD on 05/04/2025 3:25 PM Procedure Note Vivien Feliz MD - 05/04/2025 Lumbosacral spine: 05/02/2025 2:31 PM. Reason for study: Chronic midline low back pain without sciatica. Comparison: Lumbosacral spine radiograph from 04/06/2023 Technique: AP, lateral, bilateral oblique, and lateral flexion/extension views of thelumbosacral spine were obtained. Findings/impression: 1. There are 5 nonrib-bearing vertebrae in lumbar spine. The sacroiliacjoints are unremarkable. 2. Grade 1 retrolisthesis of L3 on L4 without significant change onflexion/extension. 3. Similar-appearing vertebral body heights. Mild lumbosacral degenerativedisc disease. Anterior bridging osteophytes most pronounced at L2-L4 andT11/T12. 4. No spondylolysis Finalized by Vivien Feliz MD on 05/04/2025 3:25 PM Jessee Molina DO [facility] Final Result documented in this encounter Visit Diagnoses Diagnosis Chronic midline low back pain without sciatica documented in this encounter Additional Health Concerns Assessment Noted Time PHQ-9 Depression Total Score: 7 04/26/20 2:06 PM EDT documented as of this encounter Care Teams Glove Sewer Relationship Specialty Start Date End Date Jessee Molina DO [address] [facility], [place] [address] PCP - General Family Medicine 04/26/25 documented as of this encounter
--- OUTSIDE RECORDS SUMMARY | 2025-05-10 09:30 | XMS_ITS | Encounter Summary ---
Author Organization [facility] tem Address [id number] [address] [place] [address] Care Team Providers Care Enterprise Software Developer Name Role Phone Jessee Molina DO Primary Care Provider Reason for Visit * Reason Comments Diabetes Follow-up Back pain Encounter Details Date Type Department Care Team (Late st Contact Info) Description 05/10/2025 9:30 AM EDT Clinical Support [facility] [address] [place] [address] [place] [address] Jessee Molina DO [address] [facility], [address], [place] [address] Type 2 diabetes mellitus with foot ulcer, with long-term current use of insulin ([facility]); Benign essential HTN; Gastroesophageal reflux disease, unspecified whether esophagitis present; Chronic midline low back pain without sciatica; Encounter for screening for malignant neoplasm of prostate; Fatigue, unspecified type Social History Tobacco Use Types Packs/Day Years [...] How often do you attend baptist or mormon serv ices? Never 02/07/2021 Do you belong [...] 02/07/2021 PHQ-2 Answer Date Recorded Total Score 3 05/10/2025 [facility] - Occupational Stress Questionnaire Answer Date [...] got money to buy more. Never True 05/10/2025 Within the past 12 months th e food we bought just didn't last and we didn't have money to get more. Never True 05/10/2025 Purpose - Life Answer Date Recorded I have a purpose and direction in my life. Agree 02/07/2021 Sex and Gender Information Value Date Recorded Sex Assigned at Not on file Legal Sex Male 11:23 AM EDT Gender Identity Not on file Sexual Orientation Not on file documented as of this encounter Last Filed Vital Signs Vital Sign Reading Time Taken Comments Blood Pressure 110/72 05/10/2025 9:29 AM EDT Pulse 90 05/10/2025 9:29 AM EDT Temperature 36.6 C (97.8 F) 05/10/2025 9:29 AM EDT Respiratory Rate - - Oxygen Saturation 95% 05/10/2025 9:29 AM EDT Inhaled Oxygen Concentration - - Weight 115.4 kg (254 lb 6.4 oz) 05/10/2025 9:29 AM EDT Height - - Body Mass Index 38.11 04/26/2025 2:12 PM EDT documented in this encounter Patient Instructions * Patient Instructions* Jessee Molina DO - 05/10/2025 9:30 AM EDT Sliding scale for Novolog Blood sugar 150 or less 0 units of Novolog 151 to 200 2 units 201 to 250 4 units 251 to 300 6 units 301 to 350 8 units 351 to 400 10 units Greater than 400 12 units Sent into pharmacy prescription for Lantus 30 units twice daily. If not able to get either one or both insulins contact office. Blood pressure controlled. Continue with lisinopril and hydrochlorothiazide. Prescribed celecoxib 100 mg daily for back discomfort. Home stretching and exercises as given documented in this encounter Progress Notes * Jessee Molina DO - 05/10/2025 9:30 AM EDT Images from the original note were not included. [facility] [address] [place] [address] [place] [address] Patient: Rashel Rodriguez Jr. Date of : 1965 Encounter Date: 05/10/2025 Subjective: Chief Complaint Chief Complaint Patient presents with Diabetes Follow-up Back pain History of Present Illness Rashel Rodriguez Jr. is a 59 y.o. male, established patient, that presents to the office for diabetes follow up Diabetes He presents for his follow-up (2 week follow up. Patient unable to afford the cost of insulin's so he did not get. has not been on medication for diabetes) diabetic visit. He has type 2 diabetes mellitus. Disease course: Patient states that he was not able to afford the cost of the insulin so he has been without medications since last visit. 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 (Fasting blood sugars between 95-238 mg/dL and post meal blood sugars between 165 mg/dL to 271 mg/dL ) An LUANA inhibitor/angiotensin II receptor harjinder is being taken (On lisinopril 10 mg daily). Back Pain This is a chronic (Two week follow-up for chronic back pain.) problem. The problem is unchanged (X-ray 6 views of lumbar spine -Grade 1 retrolisthesis of L3 on L4 without significant change on flexion/extension. Mild lumbosacral degenerative disc disease. Anterior bridging osteophytes most pronounced at L2- L4 and T11/T12.). The pain is present in the lumbar spine. The quality of the pain is described as aching. Radiates to: Gluteal area bilaterally. Exacerbated by: Patient states that he has difficulty performing tasks like mowing the yard as it takes him much longer due to stopping to rest. Pertinent negatives include no bladder incontinence, bowel incontinence, numbness, perianal numbnessor tingling. Review of Systems Review of Systems Gastrointestinal: Negative for bowel incontinence. Genitourinary: Negative for bladder incontinence. Musculoskeletal: Positive for back pain. Neurological: Negative for tingling and numbness. Vital Signs BP 110/72 (BP Site: Left Arm, BP Postition: Sitting) Pulse 90 Temp 36.6 ??C (97.8 ??F) (Oral) Wt 115.4 kg (254 lb 6.4 oz) SpO2 95% BMI 38.11 kg/m?? Physical Exam Physical Exam Vitals reviewed. Constitutional: General: He is not in acute distress. Appearance: He is not ill-appearing or toxic-appearing. Cardiovascular: Rate and Rhythm: Normal rate and regular rhythm. Heart sounds: No murmur heard. Pulmonary: Effort: Pulmonary effort is normal. No accessory muscle usage or respiratory distress. Breath sounds: Normal breath sounds. No decreased breath sounds, wheezing, rhonchi or rales. Abdominal: General: Bowel sounds are normal. Palpations: Abdomen is soft. Tenderness: There is no abdominal tenderness. Musculoskeletal: Lumbar back: Deformity (increased lumbar lordosis while seated) present. No spasms or bony tenderness (no spinous process tenderness). Past Medical, Family, Surgery and Social History Past Medical History: Diagnosis Date Acid reflux Anemia Arthritis Cataract right lens implant Charcot's joint 02/2021 left foot Chronic osteomyelitis of foot ([facility]) 02/2021 left/with draining sinus Dental disease poor repair Diabetes mellitus type 2, controlled ([facility] 1999 Hyperlipidemia Hypertension PICC (peripherally inserted central catheter) flush 02/2021 Visual impairment glasses Past Surgical History: Procedure Laterality Date AMPUTATION SYMES LOWER EXTREMITY Left 04/18/2021 Performed by Ghulam Brooke DPM at [facility] AMPUTATION TOEMID FOOT OSTEOTOMY ACHILLES TENOTOMY Left 02/07/2021 Performed by Ghulam Brooke DPM at [facility] ASPIRATION BONE MARROW BIOPSY BONE MARROW (BONE BIOPSY) Left 03/24/2021 Performed by Ghulam Brooke DPM at [facility] CLOSURE WOUND LOWER EXTREMITY (DELAYED PRIMARY CLOSURE) Left 03/24/2021 Performed by Ghulam Brooke DPM at [facility] DEBRIDEMENT FOOT/ANKLE Left 02/07/2021 Performed by Ghulam Brooke DPM at [facility] EXOSTECTOMY FOOT Right 09/01/2021 Performed by Ghulam Brooke DPM at [facility] PHACO KELMAN I IMPLANT INTRAOCULAR LENS Right 12/28/2019 Performed by Debra Trejo MD at [facility] REMOVAL HARDWARE FOOT/TOE, AND REMOVAL ANTIBIOTIC SPACER Left 03/24/2021 Performed by Ghulam Brooke DPM at [facility] SURGERY TONSILLECTOMY as child Family History Problem Relation [...] Activity Alcohol use: Not Currently Comment: quit 2005 Drug use: Never Sexual activity: Defer Other Topics Concern Not on file Social History Narrative Lives alone in a one story home with five steps into the home and 10 to the basement. Worked at [employer]. Now disabled Social Drivers of Health Financial Resource Strain: Low Risk (01/06/2024) Received from [facility] Overall Financial Resource Strain (CARDIA) Difficulty of Paying Living Expenses: Not hard at all Food Insecurity: No Food Insecurity (05/10/2025) Hunger Screening Food Insecurity - Worry: Never True Food Insecurity - Inability: Never True Transportation Needs: Unmet Transportation Needs (01/06/2024) Received from [facility] PRAPARE - Transportation Lack of Transportation (Medical): Yes Lack of Transportation (Non-Medical): Yes Physical Activity: Inactive (01/06/2024) Received from [facility] Exercise Vital Sign Days of Exercise per Week: 0 days Minutes of Exercise per Session: 0 min Stress: Stress Concern Present (01/06/2024) Received from [facility] [place] [facility] - Occupational Stress Questionnaire Feeling of Stress : Very much Social Connections: Socially Isolated (01/06/2024) Received from [facility] Social Connection and Isolation Panel [NHANES] Frequency of Communication with Friends and Family: Never Frequency of Social Gatherings with Friends and Family: Never Attends Episcopalian Services: Never Active Member of Clubs or Organizations: Yes Attends Club or Organization Meetings: Never Marital Status: Interpersonal Safety: Unknown (01/13/2024) Received from [facility] Safety & Environment Fear of Current or Ex-Partner: Not on file Emotionally Abused: Not on file Physically Abused: Not on file Sexually Abused: Not on file Physically or Sexually Abused: Not on file Housing Instability: Low Risk (01/06/2024) Received from [facility] Housing Stability Vital Sign Unable to Pay for Housing in the Last Year: No Number of Places Lived in the Last Year: 1 Unstable Housing in the Last Year: No Allergies and Current Medications Allergies Allergen Reactions Bee Venom Protein (Honey Bee) Other (See Comments) Local swelling Current Outpatient Medications on File Prior to Visit Medication Sig BD VERO 2ND GEN PEN NEEDLE 32 gauge x needle 1 Pen Needle by other route 3 (three) times a day. cholecalciferol, vitamin D3, 2,000 units capsule Take [...] Imaging Lab Results Component Value Date WBC 8.7 05/02/2025 HGB 14.1 05/02/2025 HCT 42.3 05/02/2025 PLT 298 05/02/2025 CHOL 152 05/01/2024 TRIG 291 (H) 05/01/2024 HDL 32 (L) 05/01/2024 ALT 14 05/02/2025 AST 18 05/02/2025 K 4.1 05/02/2025 CL 100 05/02/2025 CREATININE 1.61 (H) 05/02/2025 BUN 28 (H) 05/02/2025 CO2 22 05/02/2025 TSH 1.40 01/28/2022 INR 1.3 (H) 11/05/2020 HGBA1C 11.5 (H) 05/02/2025 MICROALBUR 1.8 05/01/2024 X-ray spine lumbar complete including flexion and extension 6+ views Lumbosacral spine: 05/02/2025 2:31 PM. Reason for [...] Vivien Feliz MD on 05/04/2025 3:25 PM Assessment/Plan: 1. Type 2 diabetes mellitus with foot ulcer, with long-term current use of insulin ([facility]) - lisinopriL (PRINIVIL,ZESTRIL) 10 mg tablet; Take 1 tablet (10 mg total) by mouth daily with breakfast for 90 days Indications: high blood pressure. Dispense: 90 tablet; Refill: 0 - atorvastatin (LIPITOR) 40 mg tablet; Take 1 tablet (40 mg total) by mouth daily with breakfast for 360 days Indications: excessive fat in the blood. Dispense: 90 tablet; Refill: 3 - TRUE METRIX GLUCOSE TEST STRIP strip; 1 strip by other route 4 (four) times a day before meals and nightly. Dispense: 200 strip; Refill: 5 - insulin aspart U-100 (NovoLOG Flexpen U-100 Insulin) 100 unit/mL (3 mL) insulin pen; Sliding scale with pre meal blood sugars three times per day ( max dose 36 units/day) Dispense: 15 mL; Refill: 1 - insulin glargine (LANTUS SOLOSTAR U-100 INSULIN) 100 unit/mL (3 mL) insulin pen; Inject 30 Units under the skin in the morning and 30 Units before bedtime. Dispense: 18 mL; Refill: 1 2. Benign essential HTN - lisinopriL (PRINIVIL,ZESTRIL) 10 mg tablet; Take 1 tablet (10 mg total) by mouth daily with breakfast for 90 days Indications: high blood pressure. Dispense: 90 tablet; Refill: 0 - hydroCHLOROthiazide (HYDRODIURIL) 12.5 mg tablet; Take 1 tablet (12.5 mg total) by mouth daily. Dispense: 90 tablet; Refill: 0 3. Gastroesophageal reflux disease, unspecified whether esophagitis present - pantoprazole (PROTONIX) 40 mg EC tablet; Take 1 tablet (40 mg total) by mouth in the morning. Dispense: 90 tablet; Refill: 0 4. Chronic midline low back pain without sciatica - celecoxib (CeleBREX) 100 mg capsule; Take 1 capsule (100 mg total) by mouth in the morning. Dispense: 30 capsule; Refill: 2 5. Encounter for screening for malignant neoplasm of prostate - Prostatic specific antigen screen; Future 6. Fatigue, unspecified type - Testosterone, Total and Free, S; Future - Vitamin B12; Future - Vitamin D 25 hydroxy; Future - Magnesium; Future Chronic midline low back pain without sciatica Reviewed 6 view lumbar x-rays from May 02, 2025. Prescribed celecoxib 100 mg 1 tablet daily. Diabetes mellitus ([facility]) Hemoglobin A1c from May 02, 2025 was 11.5%. Patient was unable to afford insulin prescriptions at last visit. Prescribed Lantus Solostar insulin pens 30 units twice daily and NovoLog flex pen sliding scale 3 times daily with meals. Benign essential HTN Hypertension is stable. Continue with hydrochlorothiazide 12.5 mg daily and lisinopril 10 mg daily. ORDERED LABS THAT WERE REQUESTED BY THE PATIENT FOR FURTHER EVALUATION Patient Instructions Sliding scale for Novolog Blood sugar 150 or less 0 units of Novolog 151 to 200 2 units 201 to 250 4 units 251 to 300 6 units 301 to 350 8 units 351 to 400 10 units Greater than 400 12 units Sent into pharmacy prescription for Lantus 30 units twice daily. If not able to get either one or both insulins contact office. Blood pressure controlled. Continue with lisinopril and hydrochlorothiazide. Prescribed celecoxib 100 mg daily for back discomfort. Home stretching and exercises as given Follow-up: 2 to 3 months diabetes mellitus/back pain follow up - Jessee Molina DO 05/10/25 12:59 PM documented in this encounter Miscellaneous Notes * Assessment & Plan Note - Jessee Molina DO - 05/10/2025 12:59 PM EDT Associated Problem(s): Benign essential HTN Hypertension is stable. Continue with hydrochlorothiazide 12.5 mg daily and lisinopril 10 mg daily. * Assessment & Plan Note - Jessee Molina DO - 05/10/2025 12:58 PM EDT Associated Problem(s): Diabetes mellitus ([facility]) Hemoglobin A1c from May 02, 2025 was 11.5%. Patient was unable to afford insulin prescriptions at last visit. Prescribed Lantus Solostar insulin pens 30 units twice daily and NovoLog flex pen sliding scale 3 times daily with meals. * Assessment & Plan Note - Jessee Molina DO - 05/10/2025 12:57 PM EDT Associated Problem(s): Chronic midline low back pain without sciatica Reviewed 6 view lumbar x-rays from May 02, 2025. Prescribed celecoxib 100 mg 1 tablet daily. documented in this encounter Plan of Treatment Upcoming Encounters Date Type Department Care Team (Late st Contact Info) Description 08/10/2025 10:00 AM EDT Office Visit [facility] [address] [place] [address] [place] [address] Jessee Molina DO [address] [facility] [address], [place] [address] documented as of this encounter Goals Goal Patient Goal Type Associated Problems Recent Progress Patient-Stated? Author <enter goal here> General Yes Yulia Ocasio, RN Note: Evaluation of progress towards goal: [facility] facility documented as of this encounter Results * Magnesium (05/16/2025 11:06 AM EDT) MAGNESIUM 2.0 1.8 - 2.6 mg/dL 05/16/2025 1:53 PM EDT [facility] Blood Venous blood / Unknown Venipuncture / Unknown 05/16/2025 11:06 AM EDT 05/16/2025 11:06 AM EDT Jessee Molina LAB BLOOD ORDERABLES Final Re sult Performing Organization Address City/[facility]/ZIP Co de Phone Number [facility] [address] [place] [address], * Vitamin D 25 hydroxy (05/16/2025 11:06 AM EDT) VITAMIN D 25 HYD TOT 84.2 30.0 - 100.0 ng/mL 05/16/2025 2:06 PM EDT [facility] Blood Venous blood / Unknown Venipuncture / Unknown 05/16/2025 11:06 AM EDT 05/16/2025 11:06 AM EDT Narrative [facility] - 05/16/2025 2:06 PM EDT Vitamin D status 25 [place] Vitamin D Deficiency <20 ng/mL Insufficiency 20-29 ng/mL Sufficiency 30-100 ng/mL Toxicity >100 ng/mL NOTE: A pediatric reference range has not been established by the artificial breeding distributor of this kit. The [place] [employer] recommends a Vitamin D level of = or >20ng/mL in infants and children. Jessee Molina LAB BLOOD ORDERABLES Final Re sult Performing Organization Address City/[facility]/ZIP Co de Phone Number [facility] [address] [place] [address], [place] [phone] * (ABNORMAL) Vitamin B12 (05/16/2025 11:06 AM EDT) VITAMIN B12 1,009(H) 180 - 914 pg/mL 05/16/2025 2:05 PM EDT [facility] Blood Venous blood / Unknown Venipuncture / Unknown 05/16/2025 11:06 AM EDT 05/16/2025 11:06 AM EDT Jessee Molina DO LAB BLOOD ORDERABLES Final Re sult [facility] [address] [place] [address], [place] [phone] * Prostatic specific antigen screen (05/16/2025 11:06 AM EDT) PROSTATIC SPEC ANT 0.86 0.00 - 4.00 ng/mL 05/16/2025 1:51 PM EDT [facility] Comment: The method used for this test is Cat Apigee DXI chemiluminescent immunoassay. Values obtained by different assay methods cannot be used interchangeably. Blood Venous blood / Unknown Venipuncture / Unknown 05/16/2025 11:06 AM EDT 05/16/2025 11:06 AM EDT Jessee Molina DO LAB BLOOD ORDERABLES Final Re sult [facility] [address] [place] [address], [place] [phone] documented in this encounter Visit Diagnoses Diagnosis Type 2 diabetes mellitus with foot ulcer, with long-term current use of insulin ([facility]) Benign essential HTN Gastroesophageal reflux disease, unspecified whether esophagitis present Chronic midline low back pain without sciatica Encounter for screening for malignant neoplasm of prostate Fatigue, unspecified type documented in this encounter Additional Health Concerns Assessment Noted Time PHQ-9 Depression Total Score: 3 05/10/20 25 9:28 AM EDT documented as of this encounter Care Teams Enterprise Software Developer Relationship Specialty Start Date End Date Jessee Molina DO [address] [facility] [address] [place] [address] PCP - General Family Medicine 04/26/25 documented as of this encounter
--- OUTSIDE RECORDS SUMMARY | 2025-05-16 14:26 | XMS_ITS | Clinical Summary ---
Author Organization [facility] Address [address] [place] [address] Care Team Providers Care Camp Boss Name Role Phone Marilee Staples CNP Primary Care Provider [phone] Allergies No known active allergies Medications metFORMIN [...] Advance Directives For more information, please contact: [phone] * Full Code - Unverified (Latest Code Status on File) Date Activated Date Inactivated Comments 11/05/2020 7:21 PM 11/21/2020 10:03 PM Care Teams Camp Boss Relationship Specialty Start Date End Date Marilee Staples, BEHAVIORAL HEALTH CARE MANAGER [address] [place] [id number] PCP - General Nurse Practitioner 11/05/20
--- OUTSIDE RECORDS SUMMARY | 2025-05-16 14:26 | XMS_ITS | Encounter Summary ---
Author Organization [employer] tem Address [id number] [address] [place] [address] Care Team Providers Care Woodworking Machinist Name Role Phone Jessee Molina DO Primary Care Provider [phone] Encounter Details Date Type Department Care Team (Late st Contact Info) Description [facility]/21[facility]2021 [facility] [address] [place] [address] Lakshmi Tapia [facility] Social History Tobacco Use Types Packs/Day Years [...] Never 02/07/2021 How often do you attend jainism or adventism serv ices? Never 02/07/2021 Do you belong to any clubs o r organizations such as jainism groups, unions, fraternal or athletic groups, or [...] Answer Date Recorded Total Score 0 02/07/2021 [facility] - Occupational [...] Recorded Do you need help finding a [facility] career center and/or a training program? [...] 02/21/2021 12:45 PM EDT [facility] to [facility] in [place]. Once he is discharged he will not be getting Hyperbaric treatments. She stated they exhaustedall efforts to set something up, but it was not possible. Her number is [phone] if you would like to speak with [...] EDT Office Visit [facility] [address] [place] [address] [place] [address] Jessee Molina, [address] [place] [address], [facility] [address], [place] [address] documented as of this encounter Goals Goal Patient Goal Type Associated Problems Recent Progress Patient-Stated? Author <enter goal here> General Yes Yulia Ocasio, RN Note: Evaluation of progress towards goal: ri residential facility documented as of this encounter Visit Diagnoses Not on filedocumented in this encounter Additional Health Concerns Infection Onset Date Last Indicated Resolved Time COVID-19 Rule-Out 08/29/2021 08/29/2021 08/30/2021 11:54 PM EDT Assessment Noted Time PHQ-9 Depression Total Score: 0 02/08/20 21 1:19 PM EDT documented as of this encounter Care Teams Woodworking Machinist Relationship Specialty Start Date End Date Jessee Molina DO [address] [place] [address], [place] [address] PCP - General Family Medicine 04/26/25 documented as of this encounter
--- OUTSIDE RECORDS SUMMARY | 2025-05-16 14:26 | XMS_ITS | Clinical Summary ---
Author Organization [facility] Address [address] [place] [address] Care Team Providers Care Night Manager Name Role Phone Marilee Staples NP Unavailable [phone] Jonny Zhu MD Primary Care Provider [phone] Marilee Staples LITHOGRAPHIC PLATEMAKER Unavailable [phone] Allergies Active Allergy Reactions Criticality Noted [...] neuropathy, with long-term current use of insulin (HCC) Take 1 tablet (25 mg) by mouth at bedtime 30 tablet 2 4 Active hydroCHLOROthiazi de (HYDRODiuril) 12.5 MG tabletIndications :Primary hypertension Take 1 tablet (12.5 mg) by mouth in the morning. 30 tablet 2 4 Active metFORMIN (Glucophage) 1000 MG tabletIndications :Uncontrolled type 2 diabetes mellitus with hyperglycemia, with long-term current use of insulin (HCC) Take 1 tablet (1,000 mg) by mouth [...] hyperglycemia, with long-term current use of insulin (HCC) Take 1 tablet (40 mg) by mouth in the evening 100 tablet 4 Active DULoxetine (Cymbalta) [address] capsuleIndication s:Type 2 diabetes mellitus with diabetic neuropathy, with long-term current use of insulin (HCC) Take 1 capsule (30 mg) by mouth Daily Take 1 capsule (30 mg) by mouth in the morning. 30 capsule 2 4 Active lisinopril 10 MG tabletIndications :Primary hypertension Take 1 tablet (10 mg) by mouth [...] have explained that we could order from [facility] in [place] as they can bill DME, he then [...] do this or that. 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 Assessment & Plan (11/02/2023 3:11 PM EST): [...] (10/27/2023): Added automatically from request for surgery [id number] Hyperlipidemia 03/21/2021 Assessment & Plan (11/02/2023 3:09 PM EST): Cont statin Check labs Cellulitis 01/24/2014 Resolved Problems Problem Noted Date Diagnosed Date Resolved Date Open wound of toe 10/27/2023 01/06/2024 Charcot's joint of foot, left 03/19/2021 01/06/2024 Overview (10/27/2023): Added automatically from request for surgery [id number] Wound, open, foot with compl ication, left, [...] Care Team Description 02/28/2025 Refill [facility] [address] [place] [address] Marilee Staples NP Primary hypertension from Last 3 Months Immunizations Immunization Administration [...] Never 01/06/2024 How often do you attend muslim or church serv ices? Never 01/06/2024 Do you belong to any clubs o r organizations such as muslim groups, unions, fraternal or athletic groups, or [...] Questionnaire-2 Score 0 03/13/2024 [facility] of Occupat ional Health - Occupational [...] place to sleep or slept in a mcfp (including now)? No 01/06/2024 Sex and Gender [...] - 30.0 mg/g creat [facility] Comment:PERFORMED AT [address],[place] [address] 05/01/2024 11:2 9 AM EDT 05/01/2024 11:30 AM EDT us Marilee Staples LITHOGRAPHIC PLATEMAKER LAB URINE ORDERABLES Final Resu lt Performing Organization Address [facility] Co de Phone Number [facility] * (ABNORMAL) Hemoglobin [...] AVERAGE GLUCOSE 278 mg/dL [facility] Comment:PERFORMED AT [address],[place] [address] 05/01/2024 11:2 9 AM EDT 05/01/2024 11:30 AM EDT us Marilee Staples LITHOGRAPHIC PLATEMAKER LAB BLOOD ORDERABLES Final Resu lt Performing Organization Address [facility] Co de Phone Number [facility] from Last 3 Months or Most Recently Relevant to Health Maintenance Insurance [employer] MEDICARE ADVANTAGE Care Teams Night Manager Relationship Specialty Start Date End Date Jonny Zhu MD [address] [place] [address] PCP - General Family Medicine 01/06/24 Marilee Staples NP [address] [place] [address] Nurse Practitioner Family Medicine 07/23/23 Marilee Staples NP [address] [place] [address] Nurse Practitioner Family Medicine 01/06/24
--- OUTSIDE RECORDS SUMMARY | 2025-05-16 14:26 | XMS_ITS | Encounter Summary ---
Author Organization [employer] tem Address [facility]-[id number] [address] [place] [address] Care Team Providers Care Stonemason Helper Name Role Phone BrendaJessee aguilar Roger SCHWARZ Primary Care Provider Encounter Details Date Type Department Care Team (Late st Contact Info) Description 03/11/2021 Telephone [facility] [address] [place] [address] Ghulam Brooke, DPM [address] [facility] [address] [place] [address] Social History Tobacco Use Types [...] Never 02/07/2021 How often do you attend jehovah's witness or christian serv ices? Never 02/07/2021 Do you belong to any clubs o r organizations such as jehovah's witness groups, unions, fraternal or athletic groups, or [...] Answer Date Recorded Total Score 0 02/07/2021 [facility] of Occupat ional Health - Occupational [...] Office Visit [facility] [address] [place] [address] [place] [address] Jessee Molina, [address] [place] [address], [facility] B, [place] [address] documented as of this encounter Goals Goal Patient Goal Type Associated Problems Recent Progress Patient-Stated? Author <enter goal here> General Yes Yuila Ocasio, RN Note: Evaluation of progress towards goal: dc intermediate facility documented as of this encounter Visit Diagnoses Not on filedocumented in this encounter Additional Health Concerns Infection Onset Date Last Indicated Resolved Time COVID-19 Rule-Out 08/29/2021 08/29/2021 08/30/2021 11:54 PM EDT Assessment Noted Time PHQ-9 Depression Total Score: 0 02/08/20 21 1:19 PM EDT documented as of this encounter Care Teams Stonemason Helper Relationship Specialty Start Date End Date Jessee Molina DO [address] [facility], [facility], [address] [place] [id number] PCP - General Family Medicine 04/26/25 documented as of this encounter
--- OUTSIDE RECORDS SUMMARY | 2025-05-16 14:26 | XMS_ITS | Encounter Summary ---
Author Organization [facility] Address [address] [facility] [place] [address] Care Team Providers Care Dumbwaiter Operator Name Role Phone Marilee Staples FRONT DESK MANAGER Unavailable [phone] Jonny Zhu MD Primary Care Provider [phone] Marilee Staples FRONT DESK MANAGER Unavailable [phone] Reason for Visit * Reason Comments Med Refill Encounter Details Date Type Department Care Team (Late st Contact Info) Description 10/21/2024 Refill [facility] [address] [place] [address] Marilee Staples NP [address] [place] [phone] Uncontrolled type 2 diabetes mellitus with hyperglycemia, with long-term current use of insulin (HCC) Social History Tobacco Use Types Packs/Day Years [...] Never 01/06/2024 How often do you attend bahai or zoroastrian serv ices? Never 01/06/2024 Do you belong to any clubs o r organizations such as bahai groups, unions, fraternal or athletic groups, or [...] Recorded Patient Health Questionnaire-2 Score 0 03/13/2024 [facility] of Occupat ional Health - Occupational [...] place to sleep or slept in a group home (including now)? No 01/06/2024 Sex and Gender [...] with long-term current use of insulin (HCC) documented in this encounter Additional Health Concerns Assessment Noted Time PHQ-9 Depression Total Score: 3 01/06/20 4:38 PM EST documented as of this encounter Care Teams Dumbwaiter Operator Relationship Specialty Start Date End Date Jonny Zhu MD [address] [place] [phone] PCP - General Family Medicine 01/06/24 Marilee Staples NP [address] [place] [address] Nurse Practitioner Family Medicine 07/23/23 Marilee Staples NP [address] [place] [address] Nurse Practitioner Family Medicine 01/06/24 documented as of this encounter
--- OUTSIDE RECORDS SUMMARY | 2025-05-16 14:26 | XMS_ITS | Encounter Summary ---
Author Organization [facility] Address [id number] [address] [place] [address] Care Team Providers Care Experiential Therapist Name Role Phone Jessee Molina DO Primary Care Provider [phone] Encounter Details Date Type Department Care Team (Late st Contact Info) Description 05/16/2025 Orders Only [facility] [address] [place] [address] [place] [address] Jessee Molina DO [address], [address], [place] [address] Type 2 diabetes mellitus with foot ulcer, with long-term current use of insulin ([facility]) (Primary Dx) Social History Tobacco Use Types Packs/Day Years [...] Never 02/07/2021 How often do you attend sikh or christianity serv ices? Never 02/07/2021 Do you belong to any clubs o r organizations such as sikh groups, unions, fraternal or athletic groups, or [...] Answer Date Recorded Total Score 3 05/10/2025 [facility] of Occupat ional Health [...] Recorded Do you need help finding a [facility] career center and/or a training program? No [...] Office Visit [facility] [address] [place] [phone] Jessee Molina DO 605 [facility], [facility] B, [facility] D [place], [place] [phone] documented as of this encounter Goals Goal Patient Goal Type Associated Problems Recent Progress Patient-Stated? Author <enter goal here> General Yes Yulia Ocasio, RN Note: Evaluation of progress towards goal: dc jail facility documented as of this encounter Visit Diagnoses Diagnosis Type 2 diabetes mellitus with foot ulcer, with long-term current use of insulin ([facility])- Primary documented in this encounter Additional Health Concerns Assessment Noted Time PHQ-9 Depression Total Score: 3 05/10/20 25 9:28 AM EDT documented as of this encounter Care Teams Experiential Therapist Relationship Specialty Start Date End Date Jessee Molina DO [address] [facility], [facility], [address] [place], [place] [phone] PCP - General Family Medicine 04/26/25 documented as of this encounter
--- OUTSIDE RECORDS SUMMARY | 2025-05-16 14:26 | XMS_ITS | Encounter Summary ---
Author Organization [facility] tem Address [id number] [address] [place] [address] Care Team Providers Care Light Coil Winder Name Role Phone BrendalaurenJessee DO Primary Care Provider [phone] Encounter Details Date Type Department Care Team (Latest Contact Info) Description 05/10/2025 Travel Social History Tobacco Use Types Packs/Day [...] Never 02/07/2021 How often do you attend advent or restoration serv ices? Never 02/07/2021 Do you belong to any clubs o r organizations such as advent groups, unions, fraternal or athletic groups, or [...] Answer Date Recorded Total Score 3 05/10/2025 [facility] Questionnaire Answer Date [...] Recorded Do you need help finding a [facility] career center and/or a training program? [...] Description 08/10/2025 10:00 AM EDT Office Visit [facility] [address] [place] [phone] Jessee Molina DO 605 [facility], [place], [place] [id number] documented as of this encounter Goals Goal Patient Goal Type Associated Problems Recent Progress Patient-Stated? Author <enter goal here> General Yes Yulia Ocasio, RN Note: Evaluation of progress towards goal: pr long-term facility documented as of this encounter Visit Diagnoses Not on filedocumented in this encounter Additional Health Concerns Assessment Noted Time PHQ-9 Depression Total Score: 3 05/10/20 25 9:28 AM EDT documented as of this encounter Care Teams Light Coil Winder Relationship Specialty Start Date End Date Jessee Molina DO 605 [facility], [place], [place] [phone] PCP - General Family Medicine 04/26/25 documented as of this encounter
--- OUTSIDE RECORDS SUMMARY | 2025-05-16 14:26 | XMS_ITS | Encounter Summary ---
Author Organization [facility] Address [address] [facility] [place] [address] Care Team Providers Care Instrument Technician Apprentice Name Role Phone Marilee Staples NP Unavailable [phone] Jonny Zhu MD Primary Care Provider [phone] Marilee Staples NP Unavailable [phone] Encounter Details Date Type Department Care Team (Late st Contact Info) Description 05/02/2024 Orders Only [facility] [address] [place] [address] Marilee Staples NP [address] [place] [address] Social History Tobacco Use Types Packs/Day Years [...] Never 01/06/2024 How often do you attend shinto or jew serv ices? Never 01/06/2024 Do you belong to any clubs o r organizations such as shinto groups, unions, fraternal or athletic groups, or [...] Recorded Patient Health Questionnaire-2 Score 0 03/13/2024 [facility] of Occupat ional Health - Occupational [...] place to sleep or slept in a prison (including now)? No 01/06/2024 Sex and Gender [...] documented as of this encounter Care Teams Instrument Technician Apprentice Relationship Specialty Start Date End Date Jonny Zhu MD [address] [place] [phone] PCP - General Family Medicine 01/06/24 Marilee Staples NP [address] [place] [address] Nurse Practitioner Family Medicine 07/23/23 Marilee Staples NP [address] [place] [address] Nurse Practitioner Family Medicine 01/06/24 documented as of this encounter
--- OUTSIDE RECORDS SUMMARY | 2025-05-16 14:26 | XMS_ITS | Encounter Summary ---
Author Organization [facility] Address [address] [facility] [place] [address] Care Team Providers Care Optometry Professor Name Role Phone Marilee Staples QUARTER LINING SMOOTHER Unavailable [phone] Jonny Zhu MD Primary Care Provider [phone] Marilee Staples NP Unavailable [phone] Reason for Visit * Reason Comments Med Refill Encounter Details Date Type Department Care Team (Late st Contact Info) Description 02/28/2025 Refill [facility] [address] [place] [address] Marilee Staples NP [address] [place] [address] Primary hypertension Social History Tobacco Use Types Packs/Day Years [...] Never 01/06/2024 How often do you attend quaker or cheondoism serv ices? Never 01/06/2024 Do you belong to any clubs o r organizations such as quaker groups, unions, fraternal or athletic groups, or [...] 0 03/13/2024 [facility] of Occupat ional [facility] - Occupational Stress Questionnaire Answer Date [...] place to sleep or slept in a detention (including now)? No 01/06/2024 Sex and Gender Information Value Date Recorded Sex Assigned at Not on file Legal Sex Male 7:39 PM EDT Gender Identity Not on file Sexual Orientation Not on file documented as of this encounter Plan of Treatment Not on file documented as of this encounter Visit Diagnoses Diagnosis Primary hypertension Unspecified essential hypertension documented in this encounter Additional Health Concerns Assessment Noted Time PHQ-9 Depression Total Score: 3 01/06/20 24 4:38 PM EST documented as of this encounter Care Teams Optometry Professor Relationship Specialty Start Date End Date Jonny Zhu MD [address] [place] [phone] PCP - General Family Medicine 01/06/24 Marilee Staples NP [address] [place] [phone] Nurse Practitioner Family Medicine 07/23/23 Marilee Staples NP [address] [place] [address] Nurse Practitioner Family Medicine 01/06/24 documented as of this encounter
--- OUTSIDE RECORDS SUMMARY | 2025-05-16 14:26 | XMS_ITS | Encounter Summary ---
Author Organization [facility] tem Address [id number] [address] [place] [address] Care Team Providers Care Yoke Presser Name Role Phone Jessee Molina DO Primary Care Provider [phone] Reason for Visit * Reason Comments Med Change Request Encounter Details Date Type Department Care Team (Late st Contact Info) Description 05/13/2025 Refill [facility] [address] [place] [address] [place] [address] Jessee Molina, [address] [facility], [address], [place] [address] Type 2 diabetes mellitus with foot ulcer, with long-term current use of insulin ([facility]) Social History Tobacco Use Types Packs/Day Years [...] Never 02/07/2021 How often do you attend sabianist or jew serv ices? Never 02/07/2021 Do you belong to any clubs o r organizations such as sabianist groups, unions, fraternal or athletic groups, or [...] Answer Date Recorded Total Score 3 05/10/2025 [facility] of Occupat ional Health - [...] Recorded Do you need help finding a [facility] and/or a training program? No [...] encounter Miscellaneous Notes * Telephone Encounter - Jessee Molina DO - 05/13/2025 3:07 PM EDT CHANGE TO ACCUCHECK documented in this encounter Plan of Treatment Upcoming Encounters Date Type Department Care Team (Late st Contact Info) Description 08/10/2025 10:00 AM EDT Office Visit [facility] [address] [place] [phone] Jessee Molina DO 605 [facility], [facility], [place] [address] documented as of this encounter Goals Goal Patient Goal Type Associated Problems Recent Progress Patient-Stated? Author <enter goal here> General Yes Yulia Ocasio, RN Note: Evaluation of progress towards goal: dc nursing home facility documented as of this encounter Visit Diagnoses Diagnosis Type 2 diabetes mellitus with foot ulcer, with long-term current use of insulin ([facility]) documented in this encounter Additional Health Concerns Assessment Noted Time PHQ-9 Depression Total Score: 3 05/10/20 25 9:28 AM EDT documented as of this encounter Care Teams Yoke Presser Relationship Specialty Start Date End Date Jessee Molina DO 605 [facility], [facility] [address], [facility] [place] [address] PCP - General Family Medicine 04/26/25 documented as of this encounter
--- OUTSIDE RECORDS SUMMARY | 2025-05-16 14:26 | XMS_ITS | Encounter Summary ---
Author Organization [facility] Address [id number] [address] [place] [address] Care Team Providers Care Case Monitor Name Role Phone Jessee Molina DO Primary Care Provider [phone] Encounter Details Date Type Department Care Team (Late st Contact Info) Description 01/27/2022 [facility]phone [facility] [address] [place] [address] Radha Dockery CMA Social History [...] How often do you attend pentecostal or mandaeism serv ices? Never 02/07/2021 Do you belong [...] 0 02/07/2021 [facility] of Occupat ional Health - Occupational Stress [...] Recorded Do you need help finding a [facility] career center and/or a training [...] Office Visit [facility] [address] [place] [phone] Jessee Molina DO 605 [facility], [facility] B, [place] [address] documented as of this encounter Goals Goal Patient Goal Type Associated Problems Recent Progress Patient-Stated? Author <enter goal here> General Yes Yulia Ocasio, RN Note: Evaluation of progress towards goal: dc [facility] facility documented as of this encounter Visit Diagnoses Not on filedocumented in this encounter Additional Health Concerns Assessment Noted Time PHQ-9 Depression Total Score: 0 02/08/20 21 1:19 PM EDT documented as of this encounter Care Teams Case Monitor Relationship Specialty Start Date End Date Jessee Molina DO [address] [facility], [facility] [address], [facility] [place] [address] PCP - General Family Medicine 04/26/25 documented as of this encounter
--- OUTSIDE RECORDS SUMMARY | 2025-05-16 14:26 | XMS_ITS | Encounter Summary ---
Author Organization [facility] Address [address] [place] [address] Care Team Providers Care Hot Tar Roofer Helper Name Role Phone Amor Fernandez MD Primary Care Provider Marilee Staples SALES INSPECTOR Unavailable [phone] Jonny Zhu MD Unavailable Jonny Zhu MD Primary Care Provider Jonny Zhu MD Primary Care Provider Marilee Staples SALES INSPECTOR Unavailable [phone] Encounter Details Date Type Department Care Team (Late st Contact Info) Description 04/13/2023 Abstract [facility] [address] [facility] [address] [place] [address] Otto Esparza MD [address] [facility] [address] [place] [address] Social History Tobacco Use Types Packs/Day Years [...] on filedocumented in this encounter Care Teams Hot Tar Roofer Helper Relationship Specialty Start Date End Date Amor Fernandez MD PCP - General Gastroenterology 04/14/23 10/31/23 Jonny Zhu MD [address] [place] [phone] PCP - Devoted 08/22/23 11/21/23 Jonny Zhu MD [address] [place] [address] PCP - General Family Medicine 11/01/23 01/05/24 Jonny Zhu MD [address] [place] [address] PCP - General Family Medicine 01/06/24 Marilee Staples NP [address] [place] [address] Nurse Practitioner Family Medicine 07/23/23 Marilee Staples NP [address] [place] [address] Nurse Practitioner Family Medicine 01/06/24 documented as of this encounter
--- OUTSIDE RECORDS SUMMARY | 2025-05-16 14:26 | XMS_ITS | Encounter Summary ---
Author Organization [employer] [facility] tem Address [id number] [address] [place] [address] Care Team Providers Care Bit Shaver Name Role Phone BrendalaurenJessee DO Primary Care Provider [phone] Encounter Details Date Type Department Care Team (Latest Contact Info) Description 05/16/2025 Travel Social History Tobacco Use Types Packs/Day [...] often do you attend jehovah's witness or shinto serv ices? Never 02/07/2021 Do you belong [...] Answer Date Recorded Total Score 3 05/10/2025 [facility] Questionnaire Answer Date [...] Recorded Do you need help finding a [employer] [facility] career center and/or a training program? [...] Office Visit [facility] [address] [place] [phone] Jessee Molina DO 605 [facility], [place], [place] [address] documented as of this encounter Goals Goal Patient Goal Type Associated Problems Recent Progress Patient-Stated? Author <enter goal here> General Yes Yulia cOasio, RN Note: Evaluation of progress towards goal: or senior living facility documented as of this encounter Visit Diagnoses Not on filedocumented in this encounter Additional Health Concerns Assessment Noted Time PHQ-9 Depression Total Score: 3 05/10/20 25 9:28 AM EDT documented as of this encounter Care Teams Bit Shaver Relationship Specialty Start Date End Date Jessee Molina DO [address] [facility], [place], [place] [phone] PCP - General Family Medicine 04/26/25 documented as of this encounter
--- OUTSIDE RECORDS SUMMARY | 2025-05-16 14:26 | XMS_ITS | Encounter Summary ---
Author Organization [facility] Address [address] [place] [address] Care Team Providers Care Citrix Architect Name Role Phone Marilee Staples PAPER GLUING OPERATOR Unavailable [phone] Jonny Zhu MD Primary Care Provider [phone] Marilee Staples NP Unavailable [phone] Reason for Visit * Reason Comments Med Refill Encounter Details Date Type Department Care Team (Late st Contact Info) Description 06/10/2024 Refill [facility] [address] [place] [address] Marilee Staples NP [address] [place] [phone] Primary hypertension Social History Tobacco Use Types [...] Never 01/06/2024 How often do you attend nondenominational or sikh serv ices? Never 01/06/2024 Do you belong to any clubs o r organizations such as nondenominational groups, unions, fraternal or athletic groups, or [...] Recorded Patient Health Questionnaire-2 Score 0 03/13/2024 [facility] of Occupat ional [facility] - Occupational Stress Questionnaire Answer [...] place to sleep or slept in a intermediate (including now)? No 01/06/2024 Sex and Gender [...] documented as of this encounter Care Teams Citrix Architect Relationship Specialty Start Date End Date Jonny Zhu MD [address] [place] [phone] PCP - General Family Medicine 01/06/24 Marilee Staples NP [address] [place] [phone] Nurse Practitioner Family Medicine 07/23/23 Marilee Staples NP [address] [place] [phone] Nurse Practitioner Family Medicine 01/06/24 documented as of this encounter
--- OUTSIDE RECORDS SUMMARY | 2025-05-16 14:26 | XMS_ITS | Encounter Summary ---
Author Organization [facility] tem Address [id number] [address] [place] [address] Care Team Providers Care Glass Robot Operator Name Role Phone Jessee Molina Roger CSHWARZ Primary Care Provider [phone] Encounter Details Date Type Department Care Team (Late st Contact Info) Description 02/24/2021 Orders Only [facility] - Wound Care Outpatient [address] [place] [phone] Rashel Feldman MD [address] [facility] [place], [place] [id number] Wound, open, foot with complication, left, initial encounter (Primary Dx); Diabetic ulcer of left midfoot associated with type 2 diabetes mellitus, with necrosis of bone ([facility]) Social History Tobacco Use Types Packs/Day Years [...] Never 02/07/2021 How often do you attend yazidi or islam serv ices? Never 02/07/2021 Do you belong to any clubs o r organizations such as yazidi groups, unions, fraternal or athletic groups, or [...] Answer Date Recorded Total Score 0 02/07/2021 [facility] of Occupat ional Health - Occupational [...] Recorded Do you need help finding a [facility] career [facility] and/or a training [...] Office Visit [facility] [address] [place] [phone] Jessee Molina DO [address] [facility], [place] [address] documented as of this encounter Goals Goal Patient Goal Type Associated Problems Recent Progress Patient-Stated? Author <enter goal here> General Yes Yulia Ocasio, RN Note: Evaluation of progress towards goal: or [facility] facility documented as of this encounter [...] documented as of this encounter Care Teams Glass Robot Operator Relationship Specialty Start Date End Date Jessee Molina DO [address] [facility], [place], [place] [phone] PCP - General Family Medicine 04/26/25 documented as of this encounter
--- OUTSIDE RECORDS SUMMARY | 2025-05-16 14:26 | XMS_ITS | Encounter Summary ---
Author Organization [employer] tem Address [id number] [address] [place] [address] Care Team Providers Care Manager Adobe Name Role Phone Jessee Molina DO Primary Care Provider [phone] Encounter Details Date Type Department Care Team (Late st Contact Info) Description 02/25/2021 [facility]phone [facility] [address] [place] [address] Radha Dockery CMA Social History [...] Never 02/07/2021 How often do you attend jewish or roman catholic serv ices? Never 02/07/2021 Do you belong to any clubs o r organizations such as jewish groups, unions, fraternal or athletic groups, or [...] Answer Date Recorded Total Score 0 02/07/2021 [facility] of Occupat ional Health - Occupational [...] Recorded Do you need help finding a [facility] career center and/or a training program? [...] 10:21 AM EDT Spoke to Kathrine at [facility] in [place] [phone] to inform her that the order for [...] with duration faxed to attention Kathrine at [place]. documented in this encounter Plan of Treatment Upcoming Encounters Date Type Department Care Team (Late st Contact Info) Description 08/10/2025 10:00 AM EDT Office Visit [facility] [address] [place] [address] [address] [address] [place] [address] Jessee Molina, [address] [place] [address], [facility], [address] [place] [phone] documented as of this encounter Goals Goal Patient Goal Type Associated Problems Recent Progress Patient-Stated? Author <enter goal here> General Yes Yulia Ocasio, RN Note: Evaluation of progress towards goal: [facility] documented as of this encounter Visit Diagnoses Not on filedocumented in this encounter Additional Health Concerns Infection Onset Date Last Indicated Resolved Time COVID-19 Rule-Out 08/29/2021 08/29/2021 08/30/2021 11:54 PM EDT Assessment Noted Time PHQ-9 Depression Total Score: 0 02/08/20 21 1:19 PM EDT documented as of this encounter Care Teams Manager Adobe Relationship Specialty Start Date End Date Jessee Molina DO [address] [place] [address], [place] [address] PCP - General Family Medicine 04/26/25 documented as of this encounter
--- OUTSIDE RECORDS SUMMARY | 2025-05-16 14:27 | XMS_ITS | Clinical Summary ---
Author Organization [facility] Address [address] [place] [address] Care Team Providers Care Database Dba Name Role Phone Marilee Staples APRN, NP [...] Not on file Insurance MEDICARE Care Teams Database Dba Relationship Specialty Start Date End Date Marilee Staples, [employer] [address] [place] [address] PCP - General Nurse Practitioner 03/26/21
--- OUTSIDE RECORDS SUMMARY | 2025-05-16 14:28 | XMS_ITS | Clinical Summary ---
Author Organization [facility] Address [address] [place] [address] Care Team Providers Care Clinical Practice Consultant Name Role Phone Unavailable Primary Care Provider [...]
--- OUTSIDE RECORDS SUMMARY | 2025-05-16 14:28 | XMS_ITS | Encounter Summary ---
Author Organization [employer] [facility] tem Address [id number] [address] [place] [address] Care Team Providers Care Asbestos Textile Supervisor Name Role Phone BrendalaurenJessee DO Primary Care Provider [phone] Encounter Details Date Type Department Care Team (Latest Contact Info) Description 05/02/2025 Travel Social History Tobacco Use Types Packs/Day [...] often do you attend oriental orthodox or moravian serv ices? Never 02/07/2021 Do you belong [...] Answer Date Recorded Total Score 7 04/26/2025 [facility] Questionnaire Answer Date [...] Recorded Do you need help finding a [employer] [facility] career center and/or a training program? No [...] Office Visit [facility] [address] [place] [phone] Jessee Molina DO [address] [facility], [place], [place] [phone] documented as of this encounter Goals Goal Patient Goal Type Associated Problems Recent Progress Patient-Stated? Author <enter goal here> General Yes Yulia Ocasio, RN Note: Evaluation of progress towards goal: [facility] documented as of this encounter Visit Diagnoses Not on filedocumented in this encounter Additional Health Concerns Assessment Noted Time PHQ-9 Depression Total Score: 7 04/26/20 25 2:06 PM EDT documented as of this encounter Care Teams Asbestos Textile Supervisor Relationship Specialty Start Date End Date Jessee Molina DO [address] [facility], [place], [place] [phone] PCP - General Family Medicine 04/26/25 documented as of this encounter
--- OUTSIDE RECORDS SUMMARY | 2025-05-16 14:28 | XMS_ITS | Encounter Summary ---
Author Organization [facility] Address [address] [place] [address] Care Team Providers Care Air Pollution Engineer Name Role Phone Unavailable Primary Care Provider Unavailabl e Source Comments In the event this information is protected by the Federal Confidentiality of Alcohol and Drug AbusePatient Records regulations: The Federal rules restrict any use of the information to criminally investigate or prosecute any alcohol or drug abuse patient.[facility] Encounter Details Date Type Department Care Team (Late st Contact Info) Description 04/09/2025 Patient Msg Gastroenterology [address] [phone] Javi Thakkar, Research Coordinator Social History Tobacco Use Types Packs/Day Years Used Date Smoking Tobacco: Never Passive Smoke Exposure: Never Smokeless Tobacco: Never Area Deprivation Index Answer Date Diego rded National Score (1-100), lower number is lower ri sk 87 10/24/2024 State Score (1-10), lower number is lower risk 8 10/24/2024 Data from: https://www.neighborhoodatlas.medicine.[facility].edu/. Last address used for calculation [address] [facility] 10/24/2024 Sex and Gender Information Value Date Recorded Sex Assigned at Not on file Legal Sex Male 3:23 PM EDT Gender Identity Not on file Sexual Orientation Not on file documented as of this encounter Plan of Treatment Not on file documented as of this encounter Visit Diagnoses Not on filedocumented in this encounter
--- OUTSIDE RECORDS SUMMARY | 2025-05-16 14:28 | XMS_ITS | Clinical Summary ---
Author Organization [facility] Address [address] [place] [id number] Care Team Providers Care Finished Yarn Examiner Name Role Phone Unavailable Primary Care Provider [...] times daily. 9.8 mL [address] (PROTONIX) 40 mg tabletIndications :Diabetic gastroparesis (HCC) Take 1 tablet by mouth two times a day. Start taking medication after procedure for 4 weeks. 60 tablet 5 Active sucralfate (CARAFATE) 1 gram tabletIndications :Diabetic gastroparesis (HCC) Take 1 tablet by mouth two times a day. Start taking medication after procedure for 4 weeks. 60 tablet 5 025 Active Problems Problem Noted Date Diagnosed Date [...] Encounters Date Type Department Care Team Description 04/20/2025 GI Preprocedure Call [facility] [place] [phone] Esau Del Toro, 04/18/2025 Telephone General Surgery [address] [address] Esau Del Toro, Care Coordination (Appeal for GPOEM denial ) 04/11/2025 Telephone General Surgery [address] [address] Esau Del Toro, Medication Preauthorization (PA for Gimoti) 04/10/2025 10:00 AM EDT Office Visit General Surgery [address] [address] Esau Del Toro, Diabetic gastroparesis (HCC) (Primary Dx) 04/10/2025 9:00 AM EDT Office Visit Adult Psychology [address] [address] Courtney Flower PSYD Gastroparesis (Primary Dx); Type 2 diabetes mellitus with other specified complication, unspecified whether care home insulin use (HCC) 04/10/2025 8:00 AM EDT Office Visit Gastroenterology [address] [address] Jessee Figueredo, Gastroparesis (Primary Dx) 04/10/2025 Telephone General Surgery [facility] [address] [place] [address] Esau Del Toro DO Care Coordination (Schedule procedure and follow up appt///) 04/10/2025 Travel 04/09/2025 Patient Msg Gastroenterology [address] [address] Javi Thakkar, Research Coordinator 04/05/2025 Telephone Gastroenterology [facility] [address] [place] [address] Jessee Figueredo DO Care Coordination (Gastroparesis clinic: chart review; new [...] is lower risk 8 10/24/2024 Data from: https://[email or web address]/. Last address used for calculation [address] [facility] 10/24/2024 Sex and Gender Information Value [...] Vaccine (1 of 2) 2016 Covid-19 Vaccine (1 - 2023-2 5 season) 2024 Medicare Advantage Annual We llness Visit 11/22/2024 Urine Albumin:Creatinine Ratio 05/01/2025 0 05/01/2024, 11/06/2020, 05/12/2018 HbA1C 07/11/2025 04/10/2025, 04/22, 05/01/2024, Additional history exists Influenza Vaccine (Season Ended) 2025 DTaP,Tdap,Td Vaccine (2 - Td or Tdap) 01/04/2033 01/04/2023 Procedures Procedure Name Priority Date/Time Associated Diagnosis Comments PT ED PATIENT INFORMATION 04/12/2025 PT ED DIGESTIVE DISEASE 04/12/2025 CREATININE (SPECIAL CHEM) Routine 04/10/2025 11:25 AM [...] 03/11/2025 from Last 3 Months Results * PT ED PATIENT INFORMATION (04/12/2025) Only the most recent of2 resultswithin the time period is included. 04/12/2025 Narrative [facility] - 05/13/2025 Provider GRUBIC your patient RASHEL KINGSLEY has not started their Christ program, time has . Christ program: PATIENT SAFETY INSTRUCTIONS FOR HEALTHCARE SETTINGS Esau Duran Trav DO [facility]ST Final Result Performing Organization Address City/[facility] Co de Phone Number [facility] * PT ED DIGESTIVE DISEASE (04/12/2025) 04/12/2025 Narrative [facility] - 05/13/2025 Provider TRAV your patient RASHEL KINGSLEY has not started their Christ program, time has . Christ program: UPPER GI ENDOSCOPY (EGD) us Esau Duran Trav DO [facility]ST Final Result Performing Organization Address [facility] Co de Phone Number [facility] * CARNITINE FREE & TOTAL, PLASMA (04/10/2025 11:25 AM EDT) Free L-carnitine 39.0 20.0 - 53.0 umol/L 04/13/2025 9:38 AM EDT [facility] Total L-carnitine 49.3 26.4 - 66.0 umol/L 04/13/2025 9:38 AM EDT [facility] Esterified L-Carnitine 10.3 3.0 - 15.6 umol/L 04/13/2025 9:38 AM EDT [facility] Esterified Carnitine / Free Carnitine Ratio 0.3 0.1 - 0.7 04/13/2025 9:38 AM EDT [facility] Comment: NOTE: The determination of the [...] determined by the Pathology and Laboratory Medicine [place] at the [facility]. The U.S. Food and Drug Administration has not approved or cleared this test, however, FDA clearance or approval is not currently required for clinical use. Blood BLOOD SPECIMEN / Unknown Venipuncture / Unknown 04/10/2025 11:25 AM EDT 04/10/2025 11:28 AM EDT [facility] Lissett Figueredo LABORATORY Final Result [facility] [address] [place] [address], * (ABNORMAL) ORGANIC ACIDS UR, QUANT W/CONSULT (04/10/2025 11:25 AM EDT) Lactate, Urine 23.5 2.9 - 47.2 umol/mmo [facility] 04/13/2025 10:47 AM EDT [facility] Pyruvate, Urine 0.6 0.1 - 2.6 umol/mmo [facility] 04/13/2025 10:47 AM EDT [facility] 2-HydroxyButyrate, Urine 1.0 0.0 - 2.7 umol/mmo [facility] 04/13/2025 10:47 AM EDT [facility] Oxalic Acid, Urine 1.7 0.7 - 12.4 umol/mmo [facility] 04/13/2025 10:47 AM EDT [facility] 3-HydroxyButyrate, Urine <1.6 0.1 - 2.6 umol/mmo [facility] 04/13/2025 10:47 AM EDT [facility] 2OH-Isovalerate, Urine 0.1 0.0 - 0.1 umol/mmo [facility] 04/13/2025 10:47 AM EDT [facility] AcetoAcetate, Urine <0.9(H) 0.0 - 0.5 umol/mmo [facility] 04/13/2025 10:47 AM EDT [facility] 3-OH,2-MethylButyra te, Urine <0.6 0.0 - 1.3 umol/mmo [facility] 04/13/2025 10:47 AM EDT [facility] Malonate, Urine 0.0 0.0 - 0.1 umol/mmo [facility] 04/13/2025 10:47 AM EDT [facility] 3-HydroxyIsovalerat e, Urine 2.9 2.1 - 27.3 umol/mmo [facility] 04/13/2025 10:47 AM EDT [facility] MethylMalonate, Urine <0.4 0.0 - 0.6 umol/mmo [facility] 04/13/2025 10:47 AM EDT [facility] Benzoic Acid, Urine <12.2 0.0 - 14.6 umol/mmo [facility] 04/13/2025 10:47 AM EDT [facility] EthylMalonate, Urine 2.7 0.5 - 6.2 umol/mmo [facility] 04/13/2025 10:47 AM EDT [facility] Succinate, Urine 0.7 0.3 - 27.4 umol/mmo [facility] 04/13/2025 10:47 AM EDT [facility] MethylSuccinate, Urine 0.4 0.0 - 1.4 umol/mmo [facility] 04/13/2025 10:47 AM EDT [facility] Uracil, Urine <0.4 0.0 - 5.1 umol/mmo [facility] 04/13/2025 10:47 AM EDT [facility] Fumarate, Urine 1.9 0.3 - 2.6 umol/mmo [facility] 04/13/2025 10:47 AM EDT [facility] IsoButyrylGlycine, Ur <0.1 0.0 - 1.2 umol/mmo [facility] 04/13/2025 10:47 AM EDT [facility] Glutarate, Urine 0.1 0.0 - 1.4 umol/mmo [facility] 04/13/2025 10:47 AM EDT [facility] 3-MethylGlutarate, Urine 0.2 0.0 - 0.6 umol/mmo [facility] 04/13/2025 10:47 AM EDT [facility] ButyrylGlycine, Urine 0.0 0.0 - 0.7 umol/mmo [facility] 04/13/2025 10:47 AM T [facility] 2-MethylButyrylGlyc ine, Ur <0.1 0.0 - 0.4 umol/mmo [facility] 04/13/2025 10:47 AM [facility] 3MethylGlutaconic Acid, Urine 0.3 0.0 - 2.0 umol/mmo [facility] 04/13/2025 10:47 AM T [facility] Malate, Urine 0.8 0.0 - 1.1 umol/mmo [facility] 04/13/2025 10:47 AM [facility] Adipic Acid, Urine 1.3 0.3 - 9.2 umol/mmo [facility] 04/13/2025 10:47 AM [facility] 5-Mle-Zmvzxwl, Urine 1.5 0.4 - 3.1 umol/mmo [facility] 04/13/2025 10:47 AM [facility] 3-MethylCrotonylGly cine,Urine <0.3 <0.3 umol/mmo [facility] 04/13/2025 10:47 AM [facility] 3-HydroxyGlutaric Acid, Urine 0.0 0.0 - 0.7 umol/mmo [facility] 04/13/2025 10:47 AM [facility] 2-HydroxyGlutaric Acid, Urine <0.4(L) 0.6 - 17.7 umol/mmo [facility] 04/13/2025 10:47 AM [facility] Alpha-KetoGlutarate , Urine 6.2 0.2 - 42.7 umol/mmo [facility] 04/13/2025 10:47 AM [facility] HexanoylGlycine, Urine <0.1 0.0 - 0.1 umol/mmo [facility] 04/13/2025 10:47 AM [facility] 4-HydroxyPhenylAcet ate, Urine 10.8 5.7 - 147.5 umol/mmo [facility] 04/13/2025 10:47 AM [facility] N-AcetylAspartic Acid, Urine 0.8 0.1 - 8.9 umol/mmo [facility] 04/13/2025 10:47 AM EDT [facility] Suberic Acid, Urine 0.9 0.0 - 7.4 umol/mmo [facility] 04/13/2025 10:47 AM EDT [facility] SuccinylAcetone, Urine <0.4 <0.4 umol/mmo [facility] 04/13/2025 10:47 AM EDT [facility] 2-OxoAdipic Acid, Urine <1.6 0.0 - 3.3 umol/mmo [facility] 04/13/2025 10:47 AM EDT [facility] Aconitate, Urine 19.3 8.5 - 109.6 umol/mmo [facility] 04/13/2025 10:47 AM EDT [facility] IsoCitric Acid, Urine 62.1 9.1 - 271.9 umol/mmo [facility] 04/13/2025 10:47 AM EDT [facility] MethylCitrate, Urine <1.1 1.0 - 13.9 umol/mmo [facility] 04/13/2025 10:47 AM T [facility] Sebacic Acid, Urine <3.4(H) 0.0 - 0.3 umol/mmo [facility] 04/13/2025 10:47 AM T [facility] 4-HydroxyPhenyl Lactate,Urine 20.8 1.3 - 23.0 umol/mmo [facility] 04/13/2025 10:47 AM T [facility] 4-HydroxyPhenyl Pyruvate,Urine 0.0 <=0.0 umol/mmo [facility] 04/13/2025 10:47 AM T [facility] N-AcetylTyrosine, Urine 0.3 0.0 - 1.2 umol/mmo [facility] 04/13/2025 10:47 AM T [facility] SuberylGlycine, Ur 0.0 <=0.0 umol/mmo [facility] 04/13/2025 10:47 AM T [facility] UOA Consultation 04/13/20 10:47 AM T [facility] Comment: This urine organic acid analysis [...] and its performance characteristics determined by the [facility]. It has not been cleared or approved by the US Food and Drug Administration. The FDA had determined that such clearance or approval is not necessary. UOA Review Reviewed by Forrest Gomez MD, Ph.D ([id number]) 04/13/2025 10:47 AM EDT [facility] Creatinine, Ur (Special Chem) 275.7 46.8 - 314.5 mg/dL 04/13/2025 10:47 AM EDT [facility] Urine URINE SPECIMEN / Unknown Non Blood / Unknown 04/10/2025 11:25 AM EDT 04/10/2025 11:28 AM EDT Jessee Figueredo DO LABORATORY Final Result [facility] [address] [place] [address], * (ABNORMAL) AMINO ACIDS, PLASMA W/ CONSULTATION (04/10/2025 11:25 AM EDT) Taurine 58 54 - 210 umol/L 04/13/2025 4:21 PM EDT [facility] Aspartic Acid 3 1 - 25 umol/L 04/13/2025 4:21 PM EDT [facility] Hydroxyproline 04/13/2025 4:21 PM EDT [facility] Comment:Unable to assay. Miranda lytical difficulty Threonine 109 60 - 225 umol/L 04/13/2025 4:21 PM EDT [facility] Serine 41(L) 58 - 181 umol/L 04/13/2025 4:21 PM EDT [facility] Asparagine 31(L) 35 - 74 umol/L 04/13/2025 4:21 PM EDT [facility] Glutamic Acid 82 10 - 131 umol/L 04/13/2025 4:21 PM EDT [facility] Glutamine 478 205 - 756 umol/L 04/13/2025 4:21 PM EDT [facility] Sarcosine <2(H) <=0 umol/L 04/13/2025 4:21 PM EDT [facility] Alpha-Aminoadipic Acid <2 0 - 6 umol/L 04/13/2025 4:21 PM EDT [facility] Proline 237 97 - 329 umol/L 04/13/2025 4:21 PM EDT [facility] Glycine 125(L) 151 - 490 umol/L 04/13/2025 4:21 PM EDT [facility] Alanine 412 177 - 583 umol/L 04/13/2025 4:21 PM EDT [facility] Citrulline 38 12 - 55 umol/L 04/13/2025 4:21 PM EDT [facility] Valine 227 119 - 336 umol/L 04/13/2025 4:21 PM EDT [facility] Methionine 19 10 - 42 umol/L 04/13/2025 4:21 PM EDT [facility] Alloisoleucine <2 0 - 2 umol/L 04/13/2025 4:21 PM EDT [facility] Cystine 50 5 - 82 umol/L 04/13/2025 4:21 PM EDT [facility] Isoleucine 62 30 - 108 umol/L 04/13/2025 4:21 PM EDT [facility] Leucine 109 72 - 201 umol/L 04/13/2025 4:21 PM EDT [facility] Tyrosine 68 34 - 112 umol/L 04/13/2025 4:21 PM EDT [facility] Phenylalanine 63 35 - 85 umol/L 04/13/2025 4:21 PM EDT [facility] Hydroxylysine <2(H) <=0 umol/L 04/13/2025 4:21 PM EDT [facility] Ornithine 43(L) 48 - 195 umol/L 04/13/2025 4:21 PM EDT [facility] Lysine 143 116 - 296 umol/L 04/13/2025 4:21 PM EDT [facility] Histidine 53(L) 72 - 124 umol/L 04/13/2025 4:21 PM EDT [facility] Arginine 73 15 - 128 umol/L 04/13/2025 4:21 PM EDT [facility] Amino Acids Review, Plasma Reviewed by Forrest Gomez MD, Ph.D ([id number]) 04/13/2025 4:21 PM EDT [facility] Amino Acid Consultation, Plasma 04/13/2025 4:21 PM EDT [facility] Comment: This plasma amino acid analysis is mainly notable for low levels of serine and glycine. Low levels of plasma serine and glycine is potentially related to the patient's clinical history of diabetes. Reference intervals from Jovani E, Pat MG, Ocasio MANDEEP, and Anderson DK: Biochemical Genetics: A Laboratory Manual, Copyright 1989 by [employer] Reference intervals not established for some amino acids. This test was developed and its performance characteristics determined by the [facility] Department of Pathology and Laboratory Medicine. It has not been cleared or approved by the FDA. The [facility] Department of Pathology and Laboratory Medicine is regulated under CLIA as qualified to perform high- complexity testing. This test is used for clinical purposes. It should not be regarded as investigational or for research. Blood BLOOD SPECIMEN / Unknown Venipuncture / Unknown 04/10/2025 11:25 AM EDT 04/10/2025 11:28 AM EDT us Jessee Figueredo DO LABORATORY Final Result [facility] [address] [address], [place] * CREATININE (SPECIAL CHEM) (04/10/2025 11:25 AM EDT) Urine URINE SPECIMEN / Unknown Non Blood / Unknown 04/10/2025 11:25 AM EDT 04/10/2025 11:28 AM EDT [facility] Lissett Figueredo DO LABORATORY Final Result [facility] [address] [facility] [address] [place] [address], [place] * VOLTAGE-GATED POTASSIUM SZYMANSKI AB (04/10/2025 11:25 AM EDT) VOLTAGE-GATED POTASSIUM CHANNEL AB, SER 0 0 - 31 pmol/L 04/12/2025 1:52 PM EDT [facility] Comment: INTERPRETIVE INFORMATION: Voltage-Gated Potassium Channel (VGKC) [...] developed and its performance characteristics determined by [facility]. It has not been cleared or approved by the US Food and Drug Administration. This test was performed in a CLIA certified laboratory and is intended for clinical purposes. Performed By: [facility] [address] [place] [address] Studio Owner: Warren Simmons MD, PhD CLIA Number: [id number] Blood BLOOD SPECIMEN / Unknown Venipuncture / Unknown 04/10/2025 11:25 AM EDT 04/10/2025 11:28 AM EDT [facility] LABORATORY Final Result Performing Organization Address [facility] Co de Phone Number [facility] [address] [place] [address] * ACETYLCHOLINE REC BINDING AB (04/10/2025 11:25 AM EDT) Pathologist [facility] Acetylcholine, Binding, Qual Negative Negative 04/11/2025 4:13 PM EDT [facility] Comment:Anti-acetylcholine r eceptor binding antibody test is used as an aid in diagnosis of myasthenia gravis. A negative result cannot exclude myasthenia gravis. Clinical correlation is required. Acetylcholine Receptor Binding <0.02 <0.21 nmol/L 04/11/2025 4:13 PM EDT [facility] Blood BLOOD SPECIMEN / Unknown Venipuncture / Unknown 04/10/2025 11:25 AM EDT 04/10/2025 11:28 AM EDT [facility] LABORATORY Final Result Performing Organization Address [facility] de Phone Number [facility] [address] * VOLTAGE GATED CA IGG (04/10/2025 11:25 AM EDT) Pathologist [facility] P/Q-Type Calcium Channel Antibody 0.0 0.0 - 24.5 pmol/L 04/12/2025 7:03 PM EDT [facility] Comment: INTERPRETIVE INFORMATION: P/Q-Type Calcium Channel Antibody 0.0 to 24.5 pmol/L ............. Negative 24.6 to 45.6 pmol/L ............ Indeterminate 45.7 pmol/L or greater.......... Positive This test was developed and its performance characteristics determined by [facility]. It has not been cleared or approved by the US Food and Drug Administration. This test was performed in a CLIA certified laboratory and is intended for clinical purposes. Performed By: [facility] [address] [place] [address] Studio Owner: Warren Simmons MD, PhD CLIA Number: [id number] Blood BLOOD SPECIMEN / Unknown Venipuncture / Unknown 04/10/2025 11:25 AM EDT 04/10/2025 11:28 AM EDT [facility] LABORATORY Final Result Performing Organization Address [facility] Co de Phone Number [facility] [address] [place] [address] * LACTATE DEHYDROGENASE (04/10/2025 11:25 AM EDT) Pathologist [facility] LD 159 135 - 225 U/L 04/10/2025 9:52 PM EDT [facility] Blood BLOOD SPECIMEN / Unknown Venipuncture / Unknown 04/10/2025 11:25 AM EDT 04/10/2025 11:28 AM EDT [facility] LABORATORY Final Result Performing Organization Address [facility] de Phone Number [facility] [address] [place] [address] * GLUTAMIC AC DECARBOXYLASE AB (04/10/2025 11:25 AM EDT) Pathologist [facility] Glutamic Acid Decarboxylas Ab Qualitative Negative Negative 04/13/2025 2:30 PM EDT [facility] Glutamic Acid Decarboxylase Ab <5.0 <=5.0 IU/mL 04/13/2025 2:30 PM EDT [facility] Comment:Anti-glutamic acid d ecarboxylase antibody ([id number]) [...] 11:25 AM EDT 04/10/2025 11:28 AM EDT [facility] LABORATORY Final Result Performing Organization Address City/[facility]/ZIP Co de Phone Number [facility] [address] [place] [id number], [place] * (ABNORMAL) SEDIMENTATION RATE, WESTERGREN (04/10/2025 11:25 AM EDT) Sed Rate, Westergren 66(H) 0 - 15 mm/hr 04/10/2025 6:12 PM EDT [facility] Blood BLOOD SPECIMEN / Unknown Venipuncture / Unknown 04/10/2025 11:25 AM EDT 04/10/2025 11:28 AM EDT [facility] LABORATORY Final Result Performing Organization Address [facility] de Phone Number [facility] [address] [place] [id number], [place] * PYRUVATE+LACTATE BL (04/10/2025 11:25 AM EDT) Lactate 2.1 0.5 - 2.2 mmol/L 04/11/2025 10:31 PM EDT [facility] Comment:This test was develo ped, and its performance characteristics determined by the [facility] Department of Pathology and Laboratory Medicine. It has not been cleared or approved by the FDA. The [facility] Department of Pathology and Laboratory Medicine is regulated under CLIA as qualified to perform high- complexity testing. This test is used for clinical purposes. It should not be regarded as investigational or for research. Pyruvic Acid 0.05 0.03 - 0.10 mmol/L 04/11/2025 10:31 PM EDT [facility] Comment:This test was develo ped, and its performance characteristics determined by the [facility] Department of Pathology and Laboratory Medicine. It has not been cleared or approved by the FDA. The [facility] Department of Pathology and Laboratory Medicine is regulated under CLIA as qualified to perform high- complexity testing. This test is used for clinical purposes. It should not be regarded as investigational or for research. Blood BLOOD SPECIMEN / Unknown Venipuncture / Unknown 04/10/2025 11:25 AM EDT 04/10/2025 11:28 AM EDT [facility] LABORATORY Final Result Performing Organization Address [facility] de Phone Number [facility] [address] [place], [place] [phone], [place] * IMMUNOGLOBULIN M (04/10/2025 11:25 AM EDT) IgM 110 40 - 230 mg/dL 04/10/2025 8:58 PM EDT [facility] Blood BLOOD SPECIMEN / Unknown Venipuncture / Unknown 04/10/2025 11:25 AM EDT 04/10/2025 11:28 AM EDT [facility] LABORATORY Final Result Performing Organization Address [facility] Co de Phone Number [facility] [address] [place] [phone], [place] * (ABNORMAL) IMMUNOGLOBULIN G (04/10/2025 11:25 AM EDT) IgG 3,158(H) 700 - 1,600 mg/dL 04/10/2025 8:58 PM EDT [facility] Blood BLOOD SPECIMEN / Unknown Venipuncture / Unknown 04/10/2025 11:25 AM EDT 04/10/2025 11:28 AM EDT [facility] LABORATORY Final Result Performing Organization Address City/[facility] de Phone Number [facility] [address] [place], [place] [phone], [place] * (ABNORMAL) IMMUNOGLOBULIN A (04/10/2025 11:25 AM EDT) IgA 608(H) 70 - 400 mg/dL 04/10/2025 8:58 PM EDT [facility] Blood BLOOD SPECIMEN / Unknown Venipuncture / Unknown 04/10/2025 11:25 AM EDT 04/10/2025 11:28 AM EDT [facility] Lissett [facility] LABORATORY Final Result Performing Organization Address [facility] Co de Phone Number [facility] [address] [place] [phone], [place] * (ABNORMAL) HEMOGLOBIN A1C (04/10/2025 11:25 AM EDT) Hemoglobin A1C 11.0(H) 4.3 - 5.6 % 04/10/2025 9:27 PM EDT [facility] Comment:Spanish Diabetes As sociation guidelines indicate that patients with HgbA1c in the range 5.7-6.4% are at increased risk for development of diabetes, and intervention by lifestyle modification may be beneficial. HgbA1c greater or equal to 6.5% is considered diagnostic of diabetes. Estimated Average Glucose 269 mg/dL 04/10/2025 9:27 PM EDT [facility] Comment:eAG: (Estimated aver age glucose) is a calculated value from HgbA1c and is delivery representative of the average blood glucose level in the last 2-3 month period. Blood BLOOD SPECIMEN / Unknown Venipuncture / Unknown 04/10/2025 11:25 AM EDT 04/10/2025 11:28 AM EDT [facility] Final Result Performing Organization Address City/[facility]/ZIP Co de Phone Number [facility] [address] [address], [place] * (ABNORMAL) CREATINE KINASE/CK (04/10/2025 11:25 AM EDT) CK 41(L) 51 - 298 U/L 04/10/2025 1:02 PM EDT [facility] Blood BLOOD SPECIMEN / Unknown Venipuncture / Unknown 04/10/2025 11:25 AM EDT 04/10/2025 11:28 AM EDT Jessee S Figueredo DO LABORATORY Final Result [place] [address], * (ABNORMAL) C-REACTIVE PROTEIN (04/10/2025 11:25 AM EDT) CRP 2.7(H) <0.9 mg/dL 04/10/2025 1:02 PM EDT [facility] Blood BLOOD SPECIMEN / Unknown Venipuncture / Unknown 04/10/2025 11:25 AM EDT 04/10/2025 11:28 AM EDT Jessee Galeana Figueredo LABORATORY Final Result Performing Organization Address City/[facility]/ZIP Co de Phone Number [facility] [place] [address], from Last 3 Months Insurance [employer]
--- OUTSIDE RECORDS SUMMARY | 2025-05-16 14:28 | XMS_ITS | Clinical Summary ---
Author Organization [employer] tem Address [id number] [address] [place] [address] Care Team Providers Care Beam Dyer Recessed Vat Name Role Phone BrendaJessee aguilar Roger SCHWARZ Primary Care Provider [phone] Allergies Active Allergy Reactions Criticality Noted Date [...] total) by mouth in the morning. Active latanoprost (XALATAN) 0.005 % ophthalmic solution Administer 1 drop into the left eye once daily at bedtime. INSTILL 1 DROP INTO LEFT EYE AT BEDTIME 025 Active lisinopriL (PRINIVIL,ZESTR IL) 10 mg tabletIndicatio ns:hypertension Take 1 tablet (10 mg total) by mouth daily with breakfast for 90 days Indications: high blood pressure. 90 tablet 025 2024 Active atorvastatin (LIPITOR) 40 mg tabletIndicatio ns:hyperlipidem ia Take 1 tablet (40 mg total) by mouth daily with breakfast for 360 days Indications: excessive fat in the blood. 90 tablet 3 025 2025 Active hydroCHLOROthia zide (HYDRODIURIL) 12.5 mg tabletIndicatio ns:Benign essential HTN Take 1 tablet (12.5 mg total) by mouth daily. 90 tablet 025 Active pantoprazole (PROTONIX) 40 mg EC tabletIndicatio ns:Gastroesopha geal reflux disease, unspecified whether esophagitis present Take 1 tablet (40 mg total) by mouth in the morning. 90 tablet 025 Active BD VERO 2ND GEN PEN NEEDLE 32 gauge x 5/32 needle 1 Pen Needle by other route 3 (three) times a day. 025 Active celecoxib (CeleBREX) 100 mg capsuleIndicati ons:Chronic midline low back pain without sciatica Take 1 capsule (100 mg total) by mouth in the morning. 30 capsule 2 025 Active insulin aspart U-100 (NovoLOG Flexpen U-100 Insulin) 100 unit/mL (3 mL) insulin penIndications: Type 2 diabetes mellitus with foot ulcer, with long-term current use of insulin ([facility]) Sliding scale with pre meal blood sugars three times per day ( max dose 36 units/day) 15 mL 1 025 Active insulin glargine (LANTUS SOLOSTAR U-100 INSULIN) 100 unit/mL (3 mL) insulin penIndications: Type 2 diabetes mellitus with foot ulcer, with long-term current use of insulin ([facility]) Inject 30 Units under the skin in the morning and 30 Units before bedtime. 18 mL 1 025 Active blood-glucose meter kitIndications: Type 2 diabetes mellitus with foot ulcer, with long-term current use of insulin ([facility]) Use as instructed 1 each Active blood sugar diagnostic stripIndication s:Type 2 diabetes mellitus with foot ulcer, with long-term current use of insulin ([facility]) 1 strip by other route 4 (four) times a day before meals and nightly. 200 strip 3 025 Active metFORMIN (GLUCOPHAGE) 1000 mg tabletIndicatio ns:type [...] by mouth in the morning. 2024 Discontinued TRUE METRIX GLUCOSE TEST STRIP stripIndication s:Type 2 diabetes mellitus with foot ulcer, with long-term current use of insulin ([facility]) 1 strip by other route 4 (four) times a day before meals and nightly. 200 strip 5 025 2024 Discontinued(R eorder) metoclopramide HCl (GIMOTI) 15 mg/spray spray with pump Administer 1 spray into each nostril in the morning and 1 spray at noon and 1 spray in the evening and 1 spray before bedtime. 025 2024 Discontinued insulin glargine (LANTUS) 100 unit/mL injectionIndica tions:Type 2 diabetes mellitus with foot ulcer, with long-term current use of insulin ([facility]) Inject 0.3 mL (30 Units total) under the skin nightly. 10 mL 1 025 2024 Discontinued pantoprazole (PROTONIX) 40 mg EC tabletIndicatio ns:Gastroesopha geal reflux disease, unspecified whether esophagitis present Take 1 tablet (40 mg total) by mouth in the morning. 90 tablet 025 2024 Discontinued(R eorder) lisinopriL (PRINIVIL,ZESTR MO) 10 mg tabletIndicatio ns:hypertension Take 1 tablet (10 mg total) by mouth daily with breakfast for 90 days Indications: high blood pressure. 90 tablet 025 2024 Discontinued(R eorder) insulin lispro (ADMELOG SOLOSTAR U-100 INSULIN) 100 unit/mL insulin penIndications: Type 2 diabetes mellitus with foot ulcer, with long-term current use of insulin ([facility]) 70-150 0 units 151-174 2 units 175-199 4 units 200-224 6 units 225-249 8 units 250-274 10 units 275-299 12 units 300-350 14 units >350 16 units and call provider 15 mL 2024 Discontinued hydroCHLOROthia zide (HYDRODIURIL) 12.5 mg tabletIndicatio ns:Benign essential HTN Take 1 tablet (12.5 mg total) by mouth daily. 90 tablet 025 2024 Discontinued(R eorder) atorvastatin (LIPITOR) 40 mg tabletIndicatio ns:hyperlipidem ia Take 1 tablet (40 mg total) by mouth daily with breakfast for 360 days Indications: excessive fat in the blood. 90 tablet 3 025 2024 Discontinued(R eorder) pen needle, diabetic 29 gauge x 15/32 needleIndicatio ns:Type 2 diabetes mellitus with foot ulcer, with long-term current use of insulin ([facility]) 1 Pen Needle by miscellaneous route in the morning and 1 Pen Needle at noon and 1 Pen Needle in the evening and 1 Pen Needle before bedtime. 100 each 3 025 2024 Discontinued TRUE METRIX GLUCOSE TEST STRIP stripIndication s:Type 2 diabetes mellitus with foot ulcer, with long-term current use of insulin ([facility]) 1 strip by other route 4 (four) times a day before meals and nightly. 200 strip 5 025 2024 Discontinued Active Problems Problem Noted Date Diagnosed Date Chronic midline low back pain without sciatica 0 04/27/2025 Assessment & Plan (05/10/2025 12:57 PM EDT): Reviewed 6 view lumbar x-rays from May 02, 2025. Prescribed celecoxib 100 mg 1 tablet daily. Assessment & Plan (04/27/2025 9:18 PM EDT): Ordered x-rays of lumbar spine 6 views including flexion and extension views. Benign essential HTN 04/27/2025 Assessment & Plan (05/10/2025 12:59 PM EDT): Hypertension is stable. Continue with hydrochlorothiazide 12.5 mg daily and lisinopril 10 mg daily. Assessment & Plan (04/27/2025 9:14 PM EDT): [...] (08/07/2021): Added automatically from request for surgery [id number] Osteomyelitis of left foot 04/17/2021 Diabetes mellitus 03/21/2021 Assessment & Plan (05/10/2025 12:58 PM EDT): Hemoglobin A1c from May 02, 2025 was 11.5%. Patient was unable to afford insulin prescriptions at last visit. Prescribed Lantus Solostar insulin pens 30 units twice daily and NovoLog flex pen sliding scale 3 times daily with meals. Assessment & Plan (04/27/2025 9:16 PM EDT): Last hemoglobin A1c from April 01, 2025 was 11%. Continue with insulin glargine 30 units nightly, insulin lispro sliding scale coverage before meals. Monitor blood sugars before meals. Hyperlipidemia 03/21/2021 Charcot's joint of foot, left 03/19/2021 Overview (03/19/2021): Added automatically from request for surgery [id number] Wound, open, foot with compl ication, left, initial encounter 02/24/2021 Sepsis 02/07/2021 Diabetic ulcer of right midf oot associated with type 2 diabetes mellitus, with muscle involvement without evidence of necrosis 02/07/2021 Chronic osteomyelitis of left foot with draining sinus 02/07/2021 Encounters Date Type Department Care Team Description 05/16/2025 Travel 05/16/2025 Orders Only [facility] [address] [place] [address] [facility] [place] [address] Jessee Molina, Type 2 diabetes mellitus with foot ulcer, with long-term current use of insulin ([facility]) (Primary Dx) 05/13/2025 Refill [facility] [address] [place] [phone] Jessee Molina, Type 2 diabetes mellitus with foot ulcer, with long-term current use of insulin ([facility]) 05/10/2025 9:30 AM EDT [facility] [address] [place] [phone] Jessee Molina, Type 2 diabetes mellitus with foot ulcer, with long-term current use of insulin ([facility]); Benign essential HTN; Gastroesophageal reflux disease, unspecified whether esophagitis present; Chronic midline low back pain without sciatica; Encounter for screening for malignant neoplasm of prostate; Fatigue, unspecified type 05/10/2025 Travel 05/02/2025 2:27 PM EDT - 05/02/2025 11:59 PM EDT Hospital Encounter [facility] [address] [place] [address] Chronic midline low back pain without sciatica Discharge Disposition: Home 05/02/2025 Travel 04/26/2025 2:00 PM EDT [facility] [phone] Jessee Molina DO Benign essential HTN (Primary Dx); Type 2 diabetes mellitus with foot ulcer, with long-term current use of insulin ([facility]); Chronic midline low back pain without sciatica; Fatty liver disease, nonalcoholic; Visit for wound check; Hyperglycemia; Gastroesophageal reflux disease, unspecified whether esophagitis present 04/24/2025 10:30 AM EDT Office Visit [facility] [address] [place] [id number] Iqra Calderón, SPEEDER TENDER-SEAT COVERER Diabetic ulcer of right midfoot associated with type 2 diabetes mellitus, with muscle involvement without evidence of necrosis ([facility]) (Primary Dx); 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) 04/24/2025 Travel 04/11/2025 10:40 AM EDT Office Visit [facility] [address] [place] [address] Iqra Calderón, SPEEDER TENDER-SEAT COVERER Diabetic ulcer of right midfoot associated with type 2 diabetes mellitus, with muscle involvement without evidence of necrosis (CMS-HCC) (Primary Dx); History of transmetatarsal amputation of right foot (CMS-HCC); 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); Wound, open, foot with complication, left, initial encounter; Unstable ankle, right 04/11/2025 Travel 03/28/2025 10:40 AM EDT Office Visit [facility] [address] [place] [address] Iqra Calderón, SPEEDER TENDER-SEAT COVERER Diabetic ulcer of right midfoot associated with type 2 diabetes mellitus, with muscle involvement without evidence of necrosis (CMS-HCC) (Primary Dx); History of transmetatarsal amputation of right foot (CMS-HCC); Visit for wound check 03/28/2025 Travel 03/04/2025 10:03 AM EDT - 03/04/2025 1:12 PM EDT Emergency [facility] Emergency [address] [place] [address] Cam Murphy DO Visit for wound check (Primary Dx); Hyperglycemia [...] Never 02/07/2021 How often do you attend orthodoxy or adventist serv ices? Never 02/07/2021 Do you belong to any clubs o r organizations such as orthodoxy groups, unions, fraternal or athletic groups, or [...] Answer Date Recorded Total Score 3 05/10/2025 [facility] - Occupational Stress Questionnaire Answer Date Recorded [...] F) 05/10/2025 9:29 AM EDT Respiratory Rate 16 04/24/2025 9:00 AM EDT Oxygen Saturation 95% 05/10/2025 9:29 AM EDT Inhaled Oxygen Concentration - - Weight 115.4 kg (254 lb 6.4 oz) 05/10/2025 9:29 AM EDT Height 174 cm (5' 8.5 ) 04/26/2025 2:12 PM EDT Body Mass Index 38.11 04/26/2025 2:12 PM EDT Plan of Treatment Upcoming Encounters Date Type Department Care Team (Late st Contact Info) Description 08/10/2025 10:00 AM EDT Office Visit [facility] [address] [place] [address] [place] [address] Jessee Molina, DO [address] [facility], [address] [place] [address] Health Maintenance Due Date Last Done Comments Diabetic Ophthalmology Exam 1966 Adult BMI Follow Up Plan 1984 Zoster (Shingles) Vaccine (1 of 2) 2016 Diabetic Foot Exam 04/17/2022 04/17/2021, 02/07/2021 Influenza Vaccine 07/23/2025 Adult BMI Screening 05/10/2026 05/10/2025 Depression Screening 05/10/2026 05/10/2025 Tobacco Screening 05/10/2026 05/10/2025 DTaP,Tdap and Td Vaccines (2 - Td or Tdap) 01/04/2033 01/04/2023 Goals Goal Patient Goal Type Associated Problems Recent Progress Patient-Stated? Author <enter goal here> General Yes Yulia Ocasio, RN Note: Evaluation of progress towards goal: [facility] facility Medical Devices Implanted Type Area Remote Medical Coder Device Identifier Shelf Expiration Date Model / Serial / Lot Cmnt Bn Bio 40gm Rpl [id number] - [id number] Implanted:Qty : 2 on 02/07/2021 by Ghulam Brooke DPM at [facility] Cement N/A: Foot [employer] 11/21/2024 [id number] / / [id number] Lens Iol Ultrasert 18.5d - [id number] - [id number] Implanted:Qty : 1 on 12/28/2019 by Debra Trejo MD at [facility] Lens Right: Eye [employer] 07/22/2022 [id number] 18.5 / [id number] / NA Explanted Type Area Remote Medical Coder Device Identifier Shelf Expiration Date Model / Serial / Lot Pin Fx 9in in Stnm Ft 2 - [id number] Explanted:Qty: 4 on 04/18/2021 at [facility] Pin [employer] [id number] / / Description: wilfrid dewitt from tray (smooth wilfrid pins double ended) Procedures Procedure Name Priority Date/Time Associated Diagnosis Comments MAGNESIUM Routine 05/16/2025 11:06 AM EDT Fatigue, unspecified type VITAMIN D 25 HYDROXY Routine 05/16/2025 11:06 AM EDT Fatigue, unspecified type VITAMIN B12 Routine 05/16/2025 11:06 AM EDT Fatigue, unspecified type PROSTATIC SPECIFIC ANTIGEN SCREEN Routine 05/16/2025 11:06 AM EDT Encounter for screening for malignant neoplasm of prostate XR SPINE LUMB COMP INCL BEND 6+ VWS Routine 05/02/2025 2:56 PM EDT Chronic midline low back pain without sciatica HEMOGLOBIN A1C Routine 05/02/2025 2:25 PM EDT Type 2 diabetes mellitus with foot ulcer, with long-term current use of insulin (CMS-HCC) CBC WITH AUTO DIFFERENTIAL Routine 05/02/2025 2:25 PM EDT Type 2 diabetes mellitus with foot ulcer, with long-term current use of insulin (CMS-HCC) COMPREHENSIVE METABOLIC PANEL Routine 05/02/2025 2:25 PM EDT Type 2 diabetes mellitus with foot ulcer, with long-term current use of insulin (CMS-HCC) Fatty liver disease, nonalcoholic NURSING COMMUNICATION Routine 04/24/2025 11:26 AM EDT [...] muscle involvement without evidence of necrosis (CMS-HCC) DEBRIDEMENT Routine 03/28/2025 10:40 AM EDT Diabetic ulcer of right midfoot associated with type 2 diabetes mellitus, with muscle involvement without evidence of necrosis (CMS-HCC) History of transmetatarsal amputation of right foot (CMS-HCC) XR FOOT RT MIN 3 VWS STAT 03/04/2025 10:39 AM EDT SUPERFICIAL WOUND CULTURE STAT 03/04/2025 10:23 AM EDT LACTATE W/ REFLEX STAT 03/04/2025 10: 20 AM EDT COMPREHENSIVE METABOLIC PANEL STAT 03/04/2025 10:20 AM EDT CBC WITH AUTO DIFFERENTIAL STAT 03/04/2025 10:20 AM EDT from Last 3 Months Results * Prostatic specific antigen screen (05/16/2025 11:06 AM EDT) PROSTATIC SPEC ANT 0.86 0.00 - 4.00 ng/mL 05/16/2025 1:51 PM EDT [facility] Comment: The method used for this test is Cat [employer] Microchip DXI chemiluminescent immunoassay. Values obtained by different assay methods cannot be used interchangeably. Blood Venous blood / Unknown Venipuncture / Unknown 05/16/2025 11:06 AM EDT 05/16/2025 11:06 AM EDT us Jessee Molina DO LAB BLOOD ORDERABLES Final Re sult [facility] [address] [place] [address], [place] [phone] * Vitamin D 25 hydroxy (05/16/2025 11:06 AM EDT) VITAMIN D 25 HYD TOT 84.2 30.0 - 100.0 ng/mL 05/16/2025 2:06 PM EDT [facility] Blood Venous blood / Unknown Venipuncture / Unknown 05/16/2025 11:06 AM EDT 05/16/2025 11:06 AM EDT Narrative [facility] - 05/16/2025 2:06 PM EDT Vitamin D status 25 [place] Vitamin D Deficiency <20 ng/mL Insufficiency 20-29 ng/mL Sufficiency 30-100 ng/mL Toxicity >100 ng/mL NOTE: A pediatric reference range has not been established by the talent partner of this kit. The [place] [employer] recommends a Vitamin D level of = or >20ng/mL in infants and children. Jessee Molina ABS LAB BLOOD ORDERABLES Final Re sult [facility] [address] [place] [address], [place] [phone] * Magnesium (05/16/2025 11:06 AM EDT) MAGNESIUM 2.0 1.8 - 2.6 mg/dL 05/16/2025 1:53 PM EDT [facility] Blood Venous blood / Unknown Venipuncture / Unknown 05/16/2025 11:06 AM EDT 05/16/2025 11:06 AM EDT Jessee Roger SaludFÁCIL LAB BLOOD ORDERABLES Final Re sult [facility] [address] [place] [address], [place] [phone] * (ABNORMAL) Vitamin B12 (05/16/2025 11:06 AM EDT) VITAMIN B12 1,009(H) 180 - 914 pg/mL 05/16/2025 2:05 PM EDT [facility] Blood Venous blood / Unknown Venipuncture / Unknown 05/16/2025 11:06 AM EDT 05/16/2025 11:06 AM EDT Jessee Roger Molina DO LAB BLOOD ORDERABLES Final Re sult [facility] [address] [place] [address], * X-ray spine lumbar complete including flexion [...] Vivien Feliz MD on 05/04/2025 3:25 PM us Jessee Molina DO IM DIAGNOSTIC IMAGING ORDERA BLES Final Result * (ABNORMAL) CBC auto differential (05/02/2025 2:25 PM EDT) Only the most recent of2 resultswithin the time period is included. WBC 8.7 4 - 11 x10E9/L 05/02/2025 6:09 PM EDT [facility] RBC Count 5.14 4.1 - 5.7 X10E12/L 05/02/2025 6:09 PM EDT [facility] Hemoglobin 14.1 13 - 17 g/dL 05/02/2025 6:09 PM EDT [facility] Hematocrit 42.3 39 - 50 % 05/02/2025 6:09 PM EDT [facility] MCV 82 80 - 100 fL 05/02/2025 6:09 PM EDT [facility] MCH 27.5 27 - 34 pg 05/02/2025 6:09 PM EDT [facility] MCHC 33.4 32 - 36 g/dL 05/02/2025 6:09 PM EDT [facility] RDW 15.2(H) 11.5 - 15 % 05/02/2025 6:09 PM EDT [facility] Platelet Count 298 150 - 450 X10E9/L 05/02/2025 6:09 PM EDT [facility] MPV 9.5 7 - 12 fL 05/02/2025 6:09 PM EDT [facility] Neutrophils % 63.5 % 05/02/2025 6:09 PM EDT [facility] Lymphocytes % 22.1 % 05/02/2025 6:09 PM EDT [facility] Monocytes % 10.6 % 05/02/2025 6:09 PM EDT [facility] Eosinophils % 2.5 % 05/02/2025 6:09 PM EDT [facility] Basophils % 1.3 % 05/02/2025 6:09 PM EDT [facility] Neutrophils Absolute (A) 5.5 1.5 - 6.6 10*3/uL 05/02/2025 6:09 PM EDT [facility] Lymphocytes Absolute 1.9 1.0 - 3.5 10*3/uL 05/02/2025 6:09 PM EDT [facility] Monocytes Absolute 0.9 0.0 - 0.9 10*3/uL 05/02/2025 6:09 PM EDT [facility] Eosinophils Absolute 0.2 0.0 - 0.4 10*3/uL 05/02/2025 6:09 PM EDT [facility] Basophils Absolute 0.1 0.0 - 0.2 10*3/uL 05/02/2025 6:09 PM EDT [facility] Differential Type AUTOMATED DIFFERENTIAL 05/02/2025 6:09 PM EDT [facility] Blood Venous blood / Unknown Venipuncture / Unknown 05/02/2025 2:25 PM EDT 05/02/2025 2:25 PM EDT us Jessee Molina DO LAB BLOOD ORDERABLES Final Re sult [facility] [address] [place] [address], [place] [phone] * (ABNORMAL) Hemoglobin A1c (05/02/2025 2:25 PM EDT) HEMOGLOBIN A1C 11.5(H) 4.4 - 5.6 % 05/02/2025 7:54 PM EDT [facility] Comment: ADA Guidelines Result HgbA1c Normal : less than 5.7 % Prediabetes : 5.7 % to 6.4 % Diabetes : > 6.4 % Use with caution in patients with abnormal hemoglobin variants as the half-life of red blood cells and in vivo glycation rates are affected. EST. AVERAGE GLUCOSE 283 mg/dL 05/02/2025 7:54 PM EDT [facility] Blood Venous blood / Unknown Venipuncture / Unknown 05/02/2025 2:25 PM EDT 05/02/2025 2:25 PM EDT us Jessee Molina DO LAB BLOOD ORDERABLES Final Re sult [facility] [address] [place] [address], * (ABNORMAL) Comprehensive metabolic panel (05/02/2025 2:25 PM EDT) Only the most recent of2 resultswithin the time period is included. SODIUM 132(L) 134 - 146 mmol/L 05/02/2025 6:19 PM EDT [facility] POTASSIUM 4.1 3.5 - 5.0 mmol/L 05/02/2025 6:19 PM EDT [facility] CHLORIDE 100 98 - 109 mmol/L 05/02/2025 6:19 PM EDT [facility] CARBON DIOXIDE 22 22 - 32 mmol/L 05/02/2025 6:19 PM EDT [facility] ANION GAP 10 5 - 15 mmol/L 05/02/2025 6:19 PM EDT [facility] BLOOD UREA NITROGEN 28(H) 5 - 23 mg/dL 05/02/2025 6:19 PM EDT [facility] CREATININE 1.61(H) 0.60 - 1.30 mg/dL 05/02/2025 6:19 PM EDT [facility] Comment:METHOD TRACEABLE TO IDMS STANDARD GLUCOSE 323(H) 65 - 99 mg/dL 05/02/2025 6:19 PM EDT [facility] CALCIUM 9.6 8.5 - 10.5 mg/dL 05/02/2025 6:19 PM EDT [facility] TOTAL PROTEIN 8.9(H) 6.0 - 8.0 g/dL 05/02/2025 6:19 PM EDT [facility] ALBUMIN 3.7 3.2 - 5.3 g/dL 05/02/2025 6:19 PM EDT [facility] ALKALINE PHOSPHATASE 102 39 - 130 U/L 05/02/2025 6:19 PM EDT [facility] AST 18 <=41 U/L 05/02/2025 6:19 PM EDT [facility] ALT 14 <=40 U/L 05/02/2025 6:19 PM EDT [facility] BILIRUBIN,TOTAL 0.9 0.3 - 1.2 mg/dL 05/02/2025 6:19 PM EDT [facility] EGFR Non-Race Dependent 49(L) >=60 ml/min/1.7 3sq.m 05/02/2025 6:19 PM EDT [facility] Comment: Reported eGFR is based on the CKD-EPI 2020 equation that does not use a race coefficient. Blood Venous blood / Unknown Venipuncture / Unknown 05/02/2025 2:25 PM EDT 05/02/2025 2:25 PM EDT us Jessee Molina DO LAB BLOOD ORDERABLES Final Re sult [facility] [address] [place] [address], [place] [phone] * Triad (04/24/2025 11:26 AM EDT) Only the most recent of3 resultswithin the time period is included. Narrative MANUALLY TRANSCRIBED RESULTS - 04/24/2025 11:26 AM EDT APPLIED IN CLINIC TODAY. us Iqra P Kaitlynn SPEEDER TENDER-SEAT COVERER NURSING COMMUNICATION Fin al Result Performing Organization Address [facility] de Phone Number MANUALLY TRANSCRIBED RESULTS * Debridement (04/24/2025 10:30 AM EDT) Narrative MANUALLY TRANSCRIBED RESULTS - 04/24/2025 10:30 AM EDT SCOTT Vaughn 04/24/2025 12:02 PM Debridement Performed by: SCOTT Vaughn Authorized by: SCOTT Vaughn Associated wounds: Wound 03/28/25 1 Diabetic Ulcer Foot Right;Plantar Consent: Consent obtained: Verbal and written Consent given by: Patient Risks discussed: Yes Debridement Details: Performed by: INDUSTRIAL ECOLOGIST Type: Sharp Level: Subcutaneous Tissue, Devitalized tissue and other material debrided: Subcutaneous tissue, fibrin, biofilm and callus Anesthesia administration: topical Anesthesia: EMLA Total Surface Area Debrided cm^2: 7.26 Specimen Taken: None Instrument: Curette Amount of bleeding: Small Bleeding Control: Pressure Response to treatment: Procedure was tolerated well Tissue Applied?: No Result [facility] Iqra CHAVEZ PROCEDURE/MINOR SURGICAL ORDERABLES Final Result Performing Organization Address [facility] de Phone Number MANUALLY TRANSCRIBED RESULTS * Debridement (04/11/2025 10:40 AM EDT) Narrative MANUALLY TRANSCRIBED RESULTS - 04/11/2025 10:40 AM EDT SCOTT Vaughn 04/11/2025 12:18 PM Debridement Performed by: SCOTT Vaughn Authorized by: SCOTT Vaughn Associated wounds: Wound 03/28/25 1 Diabetic Ulcer Foot Right;Plantar Consent: Consent obtained: Verbal and written Consent given by: Patient Risks discussed: Yes Debridement Details: Performed by: INDUSTRIAL ECOLOGIST Type: Sharp Level: Subcutaneous Tissue, Devitalized tissue and other material debrided: Subcutaneous tissue, callus and fibrin Anesthesia administration: topical Anesthesia: EMLA Total Surface Area Debrided cm^2: 7.78 Specimen Taken: None Instrument: Curette Amount of bleeding: Medium Bleeding Control: Pressure Response to treatment: Procedure was tolerated well Tissue Applied?: No Iqra CHAVEZ PROCEDURE/MINOR SURGICAL ORDERABLES Final Result Performing Organization Address [facility] de Phone Number MANUALLY TRANSCRIBED RESULTS * Debridement (03/28/2025 10:40 AM EDT) Narrative MANUALLY TRANSCRIBED RESULTS - 03/28/2025 10:40 AM EDT SCOTT Vaughn 03/28/2025 4:19 PM Debridement Performed by: SCOTT Vaughn Authorized by: SCOTT Vaughn Consent: Consent obtained: Verbal and written Consent given by: Patient Risks discussed: Yes Debridement Details: Performed by: INDUSTRIAL ECOLOGIST Type: Sharp Level: Subcutaneous Tissue, Devitalized tissue and other material debrided: Callus and subcutaneous tissue Anesthesia administration: topical Anesthesia: EMLA Total Surface Area Debrided cm^2: 10.37 Specimen Taken: None Instrument: Curette Amount of bleeding: Medium Bleeding Control: Pressure Response to treatment: Procedure was tolerated well Tissue Applied?: No us Iqra CHAVEZ PROCEDURE/MINOR SURGICAL ORDERABLES Final Result MANUALLY TRANSCRIBED [...] plain radiographic changes of osteomyelitis Finalized by uD Hawthorne MD on 03/04/2025 10:59 AM Procedure [...] MD on 03/04/2025 10:59 AM Lakshmi Figueroa SPEEDER TENDER-SEAT COVERER IMG DIAGNOSTIC IMAGING ORD ERABLES Final Result * (ABNORMAL) Wound culture (03/04/2025 10:23 AM EDT) Gram Stain Result 0 WHITE BLOOD CELLS/LPF 03/04/2025 10:06 PM EDT [facility] Gram Stain Result 0 SQUAMOUS EPITHELIAL CELLS/LPF 03/04/2025 10:06 PM EDT [facility] Gram Stain Result MANY GRAM POSITIVE COCCI IN CLUSTERS IN CHAINS 03/04/2025 10:06 PM EDT [facility] Culture MANY STREPTOCOCCUS AGALACTIAE (GROUP B)(A) 03/07/2025 9:00 AM EDT [facility] Culture MANY STAPHYLOCOCCUS AUREUS METHICILLIN RESISTANT(A) 03/07/2025 9:00 AM EDT [facility] Culture MANY STAPHYLOCOCCUS AUREUS METHICILLIN RESISTANT VARIANT(A) 03/07/2025 9:00 AM EDT [facility] Swab Wound swab / Unknown 03/04/2025 [...] JEFFERY METHOD <=0.5: Susceptible Comment:CLIA ID [id number] us Lakshmi Figueroa SPEEDER TENDER-SEAT COVERER MICROBIOLOGY - GENERAL ORD ERABLES Final Result [facility] [address] [place] [address] * Lactate w/ Reflex (03/04/2025 10:20 AM EDT) Lactate w/ Reflex 1.3 0.4 - 2.0 mmol/L 03/04/2025 10:45 AM EDT [facility] Comment: Result did not trigger repeat Lactate, re-order if needed. Blood (PLASMA) 03/04/2025 10 :20 AM EDT 03/04/2025 10:22 AM EDT Lakshmi Figueroa APRN-SEAT COVERER LAB BLOOD ORDERABLES Final Result Performing Organization Address City/[facility] Co de Phone Number [facility] [address] [place] [address] from Last 3 Months Insurance [employer] MED[employer]ARE Advance Directives * Full Code (Latest Code Status on File) Date Activated Date Inactivated Comments 04/17/2021 12:59 PM 04/21/2021 5:08 PM * Full Code Date Activated Date Inactivated Comments 02/07/2021 2:54 AM 02/13/2021 1:11 AM Care Teams Beam Dyer Recessed Vat Relationship Specialty Start Date End Date Jessee Molina DO [address] [facility], [address] [place], [place] [id number] PCP - General Family Medicine 04/26/25
--- OUTSIDE RECORDS SUMMARY | 2025-05-16 14:28 | XMS_ITS | Encounter Summary ---
Author Organization [facility] Address [address] [place] [id number] Care Team Providers Care Network Applications Specialist Name Role Phone Unavailable Primary Care Provider Unavailabl e Source Comments In the event this information is protected by the Federal Confidentiality of Alcohol and Drug AbusePatient Records regulations: The Federal rules restrict any use of the information to criminally investigate or prosecute any alcohol or drug abuse patient.[facility] Reason for Visit * Reason Comments Care Coordination Appeal for GPOEM den ial Encounter Details Date Type Department Care Team (Late st Contact Info) Description 04/18/2025 Telephone General Surgery [facility] [address] [place] [address] Esau Del [place]o, [place] [address] Care Coordination (Appeal for GPOEM denial ) Social History Tobacco Use Types Packs/Day Years Used Date Smoking Tobacco: Never Passive Smoke Exposure: Never Smokeless Tobacco: Never Area Deprivation Index Answer Date Diego rded National Score (1-100), lower number is lower ri sk 87 10/24/2024 State Score (1-10), lower number is lower risk 8 10/24/2024 Data from: https://www.neighborhoodatlas.med[facility] Last address used for calculation [address] 10/24/2024 Sex and Gender Information Value Date Recorded Sex Assigned at Not on file Legal Sex Male 3:23 PM EDT Gender Identity Not on file Sexual Orientation Not on file documented as of this encounter Miscellaneous Notes * Telephone Encounter - Tamara Lewis RN - 05/03/2025 10:30 AM EDT Email received from [place]/Pre-Access Denials Team: We are glad to inform you that your appeal was successfully overturned and CPT 11819 is now authorized and test needs to be rescheduled before 10/30/25. Called patient - message on identified voice mail to let him know that the denial was overturned and procedure is approved. Request call back to have procedure scheduled. Next available date is 05/16/25. * Telephone Encounter - Tamara Lewis RN - 04/18/2025 3:21 PM EDT G-POEM for date of service 04/25/2025. Appeal with all information including letter, study, JAMIN notes, GES result, EGG result, EGD result,CT result, faxed to [employer]/Appeals Dept at fax [phone] with confirmation. Appeal also mailed out to [employer]/Appeals Dept to the address provided. Copy placed in shared clinical office filing cabinet. documented in this encounter Plan of Treatment Not on file documented as of this encounter Visit Diagnoses Not on filedocumented in this encounter
--- OUTSIDE RECORDS SUMMARY | 2025-05-16 14:29 | XMS_ITS | Referral Summary ---
Author Organization [facility] Address [address] [place] [address] Care Team Providers Care Commercial Service Technician Name Role Phone Unavailable Primary Care [...]
--- OUTSIDE RECORDS SUMMARY | 2025-05-16 16:54 | XMS_ITS | CCD ---
Author Organization [facility] Care Team Providers Care Chef [place] Name Role Phone CAROLINA JAVI Ruy Admitting Unavailable JAVI FIGUEROA Attending Unavailable JAVI FIGUEROA Referring Unavailable SELF, REFERRED Primary Care Unavailable PHU BUCK Attending Unavailable CHENG STAPLES Primary Care Unavailable Cheng Staples Primary Care Provider SYSTEM, PROVIDER NOT IN Referring Unavaila FLAKO Alexandre Admitting Unavail able CHENG STAPLES Primary Care Unavailable PALAK ARORA Attending Unavailab MARVEL Neri Unavailable EZIKE, MARCELLA ANICETUS Admitting Unavaila ble EZIKE, MARCELLA ANICETUS Attending Unavaila ble CHENG STAPLES Primary Care Unavailable DILIP, LEANNE NELDARY Admitting Unavailable LEANNE CHERRY Attending Unavailable CHENG STAPLES Primary Care Unavailable EZIKE, MARCELLA ANICETUS Admitting Unavaila ble EZIKE, MARCELLA ANICETUS Attending Unavaila ble CHENG STAPLES Primary Care Unavailable DILIP, LEANNE NELDARY Admitting Unavailable DILIPLEANNE Attending Unavailable CHENG STAPLES Primary Care Unavailable DILIPLEANNERY Attending Unavailable LEANNE CHERRYRY Referring Unavailable CHENG STAPLES Primary Care Unavailable DILIPLEANNERY Attending Unavailable DILIPLEANNE SilvermanRY Referring Unavailable CHENG STAPLES Primary Care Unavailable DILIP, LEANNE SABRY Admitting Unavailable DILIP LEANNERachana LUTZRY Attending Unavailable CHENG STAPLES Primary Care Unavailable DILIPLEANNE Attending Unavailable CLAYTON CHERRYA NELDARY Referring Unavailable CHENG STAPLES Primary Care Unavailable DILIP, LEANNE SABRY Admitting Unavailable MADY RUSSELL Attending Unavailable DILIP, LEANNE SABRY Referring Unavailable CHENG STAPLES Primary Care Unavailable EZIKE, MARCELLA ANICETUS Admitting Unavaila ble EZIKE, MARCELLA ANICETUS Attending Unavaila ble CHENG STAPLES J Primary Care Unavailable Ezike, Marcella Anicetus Attending Unavaila ble CHINYADZA, TANYANYIWA W Referring Unavaila ble CHENG STAPLES J. Primary Care Unavailable CHINYADZA, TANYANYIWA W Admitting Unavaila ble CHINYADZA, TANYANYIWA W Attending Unavaila ble Amor Fernandez Unavailable FELIZ DIXON Consulting Unavailable MARKER ., DR MANRIQUE Admitting Unavailable MARKER ., DR MANRIQUE Attending Unavailable AICHHOLZ, BOX PERSON CHENG Primary Care Unavailable EV POPE Consulting Unavailab Maxi Thomson Unavailable Iva Black Unavailable Mapus, Tondra Unavailable Bel DRYING ROOM ATTENDANT, Cheng Unavailable Jonny Zhu MD Primary Care Provider Bel DRYING ROOM ATTENDANT, Cheng Unavailable Cheng Staples Primary Care Provider Cheng Staples Attending Provider Cheng Staples Primary Care Provider MD Karrie Imnew Attending Provider [phone] CHENG STAPLES Attending Unavailable CHENG STAPLES Attending Unavailable CHENG STAPLES Attending Unavailable Cheng Staples Primary Care Provider MD Karrie Imnew Attending Provider [phone] Cheng Staples Primary Care Unavailable Asaad, Imad Admitting Unavailable Asaad, Imad Attending Unavailable Cheng Staples Admitting Unavailable Cheng Staples Primary Care Unavailable Aichholgosia, Cheng Dasilva Attending Unavailable Asaad, Imad Attending Unavailable Aichholz, Cheng J Primary Care Unavailable Asaad, Imad Admitting Unavailable Asaad, Imad Attending Unavailable Aichholz, Cheng J Primary Care Unavailable Asaad, Imad Admitting Unavailable Unavailable Primary Care Provider Unavailke e Aichholz TRUCK DRIVING-ROSALIA, Cheng Dasilva Primary Care Provider ART FIGUEREDO Referring Unavailable Badik DOArt Primary Care Provider NO PCP, NO PCP Primary Care Unavailable CAM CLIFFORD Attending Unavailable SHERRI GARCIA Attending Unavailable AICHHOLZ, CHENG Dasilva Referring Unavailable AICHHOLZ, CHENG Dasilva Primary Care Unavailable SHERRI GARCIA Attending Unavailable AICHHOLZ, CHENG Dasilva Referring Unavailable AICHHOLZ, CHENG J Primary Care Unavailable SHERRI GARCIA Attending Unavailable AICHHOLZ, CHENG Dasilva Referring Unavailable AICHHOLZ, CHENG Dasilva Primary Care Unavailable BADIK, ART D Referring Unavailable BADIK, ART D Primary Care Unavailable BADIK, ART D Referring Unavailable BADIK, ART D Primary Care Unavailable ASAAD, IMAD Referring Unavailable FIGUEREDO, ART S Attending Unavailable JEROME DEL TORO Attending Unavailable ASAAD, IMAD Referring Unavailable FIGUEREDO, ART S Referring Unavailable COURTNEY GLOVER Attending Unavailable DAVIDA PRICE Attending Unavailable ASAAD, IMAD Referring Unavailable BADIK, ART D Attending Unavailable AICHHOLZ, CHENG Dasilva Referring Unavailable BADIK, ART D Primary Care Unavailable BADIK, ART D Attending Unavailable BADIK, ART D Referring Unavailable BADIK, ART D Primary Care Unavailable Allergies Allergy Classification Reported Allergen(s) Allergy Type Date of Onset Reaction(s) Facility (1 source) Allergic rhinitis due to pollen; Translations: [hayfever] Propensity to adverse reactions (disorder) 7 [facility] Rep[facility] (1 source) bee venom Drug allergy (disorder) [facility] (1 source) Honey bee venom Propensity to adverse reactions 0 Swelling [facility] (2 sources) Bee pollen; Translations: [bee pollen] Allergy to substance 0 Unknown Reaction [facility] (11 sources) bee venom protein (honey bee); Translations: [bee venom protein (honey bee)] Allergy to substance 0 Other (See Comments) [facility] (6 sources) Venom-Honey Bee; Translations: [VENOM-HONEY BEE] Drug Allergy 0 Anaphylaxis, Other: See Comments, Swelling [facility] Medications Current Medications Medication Drug Class(es) Dates Sig (Normalized) Sig (Original) amitriptyline hydrochloride 25 mg oral tablet (1 source) Tricyclic Antidepressant Start: 11-25-2023 take 1 tablet by mouth every twenty-four hours Amitriptyline HCl 25 MG 1 tablet at bedtime Orally Once a day for 30 days Nov, Active amoxicillin 875 mg / clavulanate 125 mg oral tablet (2 sources) Penicillin-class Antibacterial Start: 04-11-2025 End: 04-21-2025 take 1 tablet by mouth once in the morning amoxicillin-pot clavulanate (AUGMENTIN) 875-125 mg per tablet Indications: Diabetic ulcer of right midfoot associated with type 2 diabetes mellitus, with muscle involvement without evidence of necrosis (CMS-HCC) Take 1 tablet by mouth in the morning and 1 tablet before bedtime. Do all this for 10 days. 20 tablet 04/11/2025 04/21/2025 Active Start: 03-28-2025 End: 04-07-2025 take 1 tablet by mouth once in the morning amoxicillin-pot clavulanate (AUGMENTIN) 875-125 mg per tablet Indications: Diabetic ulcer of right midfoot associated with type 2 diabetes mellitus, with muscle involvement without evidence of necrosis (CMS-HCC) Take 1 tablet by mouth in the morning and 1 tablet before bedtime. Do all this for 10 days. 20 tablet 03/28/2025 04/07/2025 Active atorvastatin 40 mg oral tablet (20 sources) HMG-CoA Reductase Inhibitor Start: 01-18-2020 End: 05-05-2026 take 1 tablet by mouth once daily at breakfast atorvastatin (LIPITOR) 40 mg tablet Indications: hyperlipidemia Take 1 tablet (40 mg total) by mouth daily with breakfast for 360 days Indications: excessive fat in the blood. 90 tablet 3 05/10/2025 05/05/2026 Active Lipitor Active blood-glucose meter kit (1 source) Start: 05-16-2025 blood-glucose meter kit Indications: Type 2 diabetes mellitus with foot ulcer, with long-term current use of insulin ([facility]) Use as instructed 1 each 05/16/2025 Active celecoxib 100 mg oral capsule (3 sources) Nonsteroidal Anti-inflammatory Drug Start: 05-10-2025 take 1 capsule by mouth in the morning celecoxib (CeleBREX) 100 mg capsule Indications: Chronic midline low back pain without sciatica Take 1 capsule (100 mg total) by mouth in the morning. 30 capsule 2 05/10/2025 Active cephalexin 500 mg oral capsule (2 sources) Cephalosporin Antibacterial Start: 01-09-2021 End: 01-23-2021 take 1 capsule by mouth three times daily cephALEXin (KEFLEX) 500 MG capsule Take 1 (one) capsule (500 mg total) by mouth 3 (three) times a day for 14 days . 42 capsule 0 01/09/2021 01/23/2021 Active cholecalciferol 0.125 mg oral capsule (8 sources) Vitamin D Start: 02-02-2024 take 125 ug by mouth once daily Cholecalciferol (Vitamin D3) Active 125 MCG PO Daily February 02, 2024 12:00am Start: 01-04-2023 take 1 capsule by mo uth in the morning cholecalciferol (Vitamin D-3) 25 MCG (1000 UT) capsule Take 1,000 Units by mouth in the morning. 0 01/04/2023 Active take 1 capsule by mo uth in the morning cholecalciferol, vitamin D3, 2,000 units capsule Take 1 capsule (2,000 Units total) by mouth in the morning. Active dorzolamide 20 mg/ml ophthalmic solution (8 sources) Carbonic Anhydrase Inhibitor take 1 drop(s) into the eye(s) in the morning dorzolamide (TRUSOPT) 2 % ophthalmic solution Indications: ocular hypertension Administer 1 drop to the right eye in the morning and 1 drop before bedtime. Indications: increased pressure in the eye. Active DULoxetine 30 mg delayed release oral capsule (1 source) Serotonin and Norepinephrine Reuptake Inhibitor take 1 capsule by mouth in the morning DULoxetine (Cymbalta) [address] capsule Take 30 mg by mouth in the morning. 0 Active famotidine 20 mg oral tablet (12 sources) Histamine-2 Receptor Antagonist Start: 05-09-20 take 1 tablet by mouth once daily Famotidine Active 20 MG PO Daily May 09, 2024 12:00am FreeTextSi tablet Orally Once a day; Note: Source Status: Taking; Provider: Dora German ( ) Start: 01-07-2024 famotidine (PE PCID) 40 mg tablet Take 40 mg by mouth. 01/07/2024 Active Start: 08-25-2023 End: 04-26-2025 take 1 tablet by mouth twice daily at dinner Pepcid 40 MG 1 tablet with morning and evening meals Orally twice a day for 30 days Aug, Active Start: 03-05-2023 take 1 tablet by anjelica th in the morning famotidine (Pepcid) 20 MG tablet Take 20 mg by mouth in the morning. 0 03/05/2023 Active gabapentin 100 mg oral capsule (1 source) Anti-epileptic Agent take 1 capsule by mouth in the morning gabapentin (Neurontin) 100 MG capsule Take 100 mg by mouth in the morning. 0 Active hydroCHLOROthiazide 12.5 mg oral tablet (18 sources) Thiazide Diuretic Star t: 05-23 End: 04-22 take 1 tablet by mouth once daily hydroCHLOROthiazide (HYDRODIURIL) 12.5 mg tablet Indications: Benign essential HTN Take 1 tablet (12.5 mg total) by mouth daily. 90 tablet 05/10/2025 Active 3 ml insulin glargine 100 unt/ml pen injector (20 sources) Insulin Analog Star t: 04-22 inject 30 [IU] by subcutaneous injection in the morning insulin glargine (LANTUS SOLOSTAR U-100 INSULIN) 100 unit/mL (3 mL) insulin pen Indications: Type 2 diabetes mellitus with foot ulcer, with long-term current use of insulin ([facility]) Inject 30 Units under the skin in the morning and 30 Units before bedtime. 18 mL 1 05/10/2025 Active Start: 04-26-2025 End: 05-10-2025 inject 0.3 mL by subcutaneous injection once daily insulin glargine (LANTUS) 100 unit/mL injection Indications: Type 2 diabetes mellitus with foot ulcer, with long-term current use of insulin ([facility]) Inject 0.3 mL (30 Units total) under the skin nightly. 10 mL 1 04/26/2025 05/10/2025 Discontinued Start: 11-20-2020 End: 12-20-2020 inject 25 [IU] by subcutaneous injection once daily insulin glargine (LANTUS) 100 unit/mL injection Inject 25 (twenty five) Units under the skin nightly . 7.5 mL 0 11/20/2020 Active Start: 11-12-2020 End: 11-21-2020 insulin glargine (LANTUS) injection 25 Units Start: 11-11-2020 End: 11-12-2020 insulin glargine (LANTUS) injection 22 Units Start: 2020 End: 11-11-2020 insulin glargine (LANTUS) injection 25 Units Start: 11-09-2020 End: 2020 insulin glargine (LANTUS) injection 32 Units Start: 11-07-2020 End: 11-09-2020 insulin glargine (LANTUS) injection 35 Units Start: 11-06-2020 End: 11-07-2020 insulin glargine (LANTUS) injection 25 Units Start: 01-18-2020 inject 28 [IU] by bradley bcutaneous injection once daily at bedtime Insulin Glargine (Lantus U-100 Insulin) 100 unit/mL Solution Active 28 UNIT SUBCUT Daily at bedtime January 18, 2020 12:00am Start: 01-18-2020 End: 01-07-2024 inject 38 [IU] by subcutaneous injection once daily in the morning Insulin Glargine Discontinued 38 UNIT SUBCUT Every morning January 18, 2020 1:00am January 07, 2024 12:05pm End: 04-26-2025 inject 0.28 mL by subcutaneous injection once daily insulin glargine (LANTUS) 100 unit/mL injection Inject 0.28 mL (28 Units total) under the skin nightly. 04/26/2025 Discontinued (Reorder) inject 38 [IU] by bradley bcutaneous injection in the morning, then inject 28 [IU] by subcutaneous injection twice daily in the evening Lantus SoloStar 100 UNIT/ML 38 units in am and 28 units in pm Subcutaneous twice a day Active Lantus Active End: 11-21-2020 inject 38 [IU] by subcutaneous injection once daily in the morning insulin glargine (LANTUS) 100 unit/mL injection Inject 38 Units under the skin daily AM . 0 11/21/2020 Discontinued (Stop Taking at Discharge) End: 11-21-2020 inject 32 [IU] by subcutaneous injection once daily at bedtime insulin glargine (LANTUS) 100 unit/mL injection Inject 32 Units under the skin nightly HS . 0 11/21/2020 Discontinued (Stop Taking at Discharge) insulin regular, human (NOVOLIN R INJECTION) (2 sources) insulin regular, human (NOVOLIN R INJECTION) by INJECTION(UNSPECIFIED PARENTERAL ROUTES) route. Active 3 ml insulin aspart, human 100 unt/ml pen injector (14 sources) Insulin Analog Start: 05-10-2025 insulin aspart U-100 (NovoLO G Flexpen U-100 Insulin) 100 unit/mL (3 mL) insulin pen Indications: Type 2 diabetes mellitus with foot ulcer, with long-term current use of insulin ([facility]) Sliding scale with pre meal blood sugars three times per day ( max dose 36 units/day) 15 mL 1 05/10/2025 Active Start: 01-18-2020 Insulin Aspart U-100 (Novolog Flexpen U-100 Insulin) 100 unit/mL (3 mL) Insulin Pen Active 0 UNIT SUBCUT As Directed January 18, 2020 12:00am per sliding scale End: 04-26-2025 insulin aspart U-100 (NovoLO G) 100 unit/mL injection Inject under the skin. 04/26/2025 Discontinued insulin aspart ( NovoLOG FLEXPEN) 100 UNIT/ML pen (If FSB 150-200; take 4 units,; 201-250, 6 UNITS,; 251-300, 8 UNITS; 301-350, 10 UNITS; 350-401, 12 UNITS; Max: 40 units/day) 0 Active NovoLOG FlexPen 100 UNIT/ML 18 units with meals Subcutaneous twice a day Active NovoLOG Active End: 11-21-2020 insulin aspart U-100 (NovoLO G) 100 unit/mL injection Inject under the skin 3 (three) times a day before meals Sliding scale, patient unsure of doses. . 0 11/21/2020 Discontinued (Stop Taking at Discharge) ketorolac tromethamine 5 mg/ml ophthalmic solution (8 sources) Nonsteroidal Anti-inflammatory Drug, Cyclooxygenase Inhibitor ketorolac (Acular) 0.5 % ophthalmic solution Administer 1 drop into both eyes in the morning and 1 drop at noon and 1 drop in the evening and 1 drop before bedtime. 0 Active take 1 drop(s) into the eye(s) four times daily as needed Ketorolac Tromethamine 0.5 % 1 drop into affected eye as needed Ophthalmic Four times a day Active take 1 drop(s) into the eye(s) four times daily as needed Ketorolac Tromethamine 0.5 % 1 drop into affected eye as needed Ophthalmic Four times a day Active latanoprost 0.05 mg/ml ophthalmic solution (10 sources) Prostaglandin Analog Start: 03-28-2025 take 1 drop(s) into the eye(s) once daily at bedtime latanoprost (XALATAN) 0.005 % ophthalmic solution Administer 1 drop into the left eye once daily at bedtime. INSTILL 1 DROP INTO LEFT EYE AT BEDTIME 03/28/2025 Active Start: 02-02-2024 take 1 drop(s) into the eye(s) once daily in the evening Latanoprost Active 1 DROPS EYE-BOTH Daily February 02, 2024 12:00am FreeTextSi drop into affected eye in the evening Ophthalmic Once a day; Note: Source Status: Taking; Provider: Dora German ( ) take 1 drop(s) into the eye(s) once daily in the evening Latanoprost 0.005 % 1 drop into affected eye in the evening Ophthalmic Once a day Active lisinopril 10 mg oral tablet (20 sources) Angiotensin Converting Enzyme Inhibitor Start: 01-18-2020 End: 08-08-2025 take 1 tablet by mouth once daily at breakfast lisinopriL (PRINIVIL,ZESTRIL) 10 mg tablet Indications: hypertension Take 1 tablet (10 mg total) by mouth daily with breakfast for 90 days Indications: high blood pressure. 90 tablet 05/10/2025 08/08/2025 Active Lisinopril Activ e Netarsudil-Latanoprost (ROCKLATAN OP) (1 source) take 1 drop(s) into the eye(s) at bedtime Netarsudil-Latanoprost (ROCKLATAN OP) Administer 1 drop into affected eye(s) at bedtime 0 Active pantoprazole 40 mg delayed release oral tablet (20 sources) Proton Pump Inhibitor Start : 04-26 End: 05-10 take 1 tablet by mouth in the morning pantoprazole (PROTONIX) 40 mg EC tablet Indications: Gastroesophageal reflux disease, unspecified whether esophagitis present Take 1 tablet (40 mg total) by mouth in the morning. 90 tablet 05/10/2025 Active Start: 08-25-2023 pantoprazole D R (PROTONIX) 40 mg tablet Take 40 mg by mouth. 01/07/2024 Active Start: 02-02-2020 End: 05-10-2025 take 1 tablet by mouth in the morning pantoprazole (PROTONIX) 40 mg EC tablet Indications: Gastroesophageal reflux disease, unspecified whether esophagitis present Take 1 tablet (40 mg total) by mouth in the morning. 90 tablet 05/10/2025 Active sucralfate 1000 mg oral tablet (2 sources) Aluminum Complex Start: 04-10-2025 End: 05-10-2025 take 1 tablet by mouth twice daily sucralfate (CARAFATE) 1 gram tablet Indications: Diabetic gastroparesis (HCC) Take 1 tablet by mouth two times a day. Start taking medication after procedure for 4 weeks. 60 tablet 04/10/2025 05/10/2025 Active Completed/Discontinued Medications Medication Drug Class(es) Dates Sig (Normalized) Sig (Original) acetaminophen 325 mg oral tablet (6 sources) Start: 11-06-2020 End: 11-21-2020 take 1 tablet by mouth every six hours as needed acetaminophen (TYLENOL) tablet 650 mg End: 04-26-2025 take 2 tablets by mouth every six hours as needed for headache acetaminophen (TYLENOL) 500 mg tablet Indications: headache disorder Take 2 tablets (1,000 mg total) by mouth every 6 (six) hours as needed Indications: headache. 04/26/2025 Discontinued acetaminophen 325 mg / oxyCODONE hydrochloride 5 mg oral tablet (1 source) Opioid Agonist Start: 11-07-2020 End: 11-21-2020 take 1 tablet by mouth every four hours as needed oxyCODONE-acetaminophen (PERCOCET) 5-325 mg per tablet 1 tablet albuterol 0.833 mg/ml / ipratropium bromide 0.167 mg/ml inhalant solution (1 source) Anticholine rgic, beta2-Adren ergic Agonist Start: 11-05-2020 End: 11-21-2020 take 3 mL by inhalation every two hours as needed 3 mL, Inhalation, Every 2 hour PRN (RT), wheezing, shortness of breath, Starting 11/05/20 at 1920 alteplase (CATH BERTHA) injection 2 mg (1 source) Start: 11-19-2020 End: 11-21-2020 alteplase (CATH BERTHA) injection 2 mg calcium chloride 0.0014 meq/ml / potassium chloride 0.004 meq/ml / sodium chloride 0.103 meq/ml / sodium lactate 0.028 meq/ml injectable solution (3 sources) Start: 11-11-2020 End: 11-19-2020 take 100 mL intravenous route every hour 100 mL/hr, Intravenous, Continuous, Starting 11/11/20 at 1800, PACU (only) Start: 11-05-2020 End: 11-19-2020 lactated Ringers infusion ceFAZolin 1000 mg injection (14 sources) Cephalosporin Antibacterial Start: 12-11-2020 End: 02-06-2021 ceFAZolin (ANCEF) 200 mg/ml injection Start: 11-19-2020 End: 12-19-2020 take 2000 mg intravenous route every eight hours ceFAZolin 2,000 mg IV (Outpatient Therapy) Indications: Osteomyelitis, Charcot's foot, tunneling wound Infuse 2 (two) g (2,000 mg total) into a venous catheter every 8 (eight) hours End: 12/19/20 180 vial 0 11/19/2020 12/19/2020 Active Start: 11-07-2020 End: 11-21-2020 take 2000 mg intravenous route every eight hours ceFAZolin (ANCEF) IVPB 2 g (premix) Clotrimazole (5 sources) Azole Antifungal Clotrimazole No t-Taking Clotrimazole Act albaro Dorzolamide HCl-Timolol Mal (5 sources) Dorzolamide HCl- Timolol Mal Not-Taking Dorzolamide HCl- Timolol Mal Active 50 ml glucose 500 mg/ml prefilled syringe (1 source) Start: 2020 End: 2020 dextrose 50 % in water (D50W ) syringe 50 mL Start: 2020 End: 2020 dextrose 50 % in water (D50W ) syringe 50 mL 1 ml heparin sodium, porcine 5000 unt/ml injection (3 sources) Unfractionated Heparin, Anti-coagulant Start: 11-08-2020 End: 11-21-2020 heparin (porcine) injection 5,000 Units Start: 11-05-2020 End: 11-06-2020 inject 5000 [IU] by subcutaneous injection every eight hours 5,000 Units, Subcutaneous, Every 8 hours scheduled, First dose on Wed11/05/20 at 2200 Notify physician if patient refuses. 1 ml HYDROmorphone hydrochloride 1 mg/ml injection (1 source) Opioid Agonist Start: 11-08-2020 End: 11-08-2020 HYDROmorphone (DILAUDID) injection 1 mg Start: 11-08-2020 End: 11-08-2020 HYDROmorphone (DILAUDID) inj ection 1 mg Insulin Aspart U-100 (Novolo g Flexpen U-100 Insulin) 100 unit/mL (3 mL) Insulin Pen (3 sources) Start: 01-18-2020 End: 05-09-2024 Insulin Aspart U-100 (Novolo g Flexpen U-100 Insulin) 100 unit/mL (3 mL) Insulin Pen Discontinued 0 UNIT SUBCUT As Directed January 18, 2020 1:00am May 09, 2024 2:20pm per sliding scale Start: 01-18-2020 Insulin Aspart U-100 (Novolog Flexpen U-100 Insulin) 100 unit/mL (3 mL) Insulin Pen Active 0 UNIT SUBCUT As Directed January 18, 2020 1:00am per sliding scale Insulin Glargine (Lantus U-100 Insulin) 100 unit/mL Solution (3 sources) Start: 01-18-2020 End: 05-09-2024 inject 28 [IU] by subcutaneous injection once daily at bedtime Insulin Glargine (Lantus U-100 Insulin) 100 unit/mL Solution Discontinued 28 UNIT SUBCUT Daily at bedtime January 18, 2020 1:00am May 09, 2024 2:20pm Start: 01-18-2020 inject 28 [IU] by bradley bcutaneous injection once daily at bedtime Insulin Glargine (Lantus U-100 Insulin) 100 unit/mL Solution Active 28 UNIT SUBCUT Daily at bedtime January 18, 2020 1:00am 3 ml insulin lispro 100 unt/ml pen injector (20 sources) Insulin Analog Start: 03-04-2025 End: 05-10-2025 insulin lispro (ADMELOG SOLOSTAR U-100 INSULIN) 100 unit/mL insulin pen Indications: Type 2 diabetes mellitus with foot ulcer, with long-term current use of insulin ([facility]) 70-150 0 units 151-174 2 units 175-199 4 units 200-224 6 units 225-249 8 units 250-274 10 units 275-299 12 units 300-350 14 units >350 16 units and call provider 15 mL 04/26/2025 05/10/2025 Discontinued Start: 11-06-2020 End: 12-20-2020 insulin lispro (HumaLOG) 100 unit/mL injection Sliding scale before meals: BG 150-200 = +1 unit Humalog, 201-250=+2 Units Humalog, 251-300=+3 Units Humalog, 301-350= +4 Humalog, >351 =+5 units Humalog . 10 mL 0 11/20/2020 Active Lidocaine (2 sources) Antiarrhythmic, Amide Local Anesthetic Start: 11-19-2020 End: 11-21-2020 take 1 mL intradermal route every twenty-four hours as needed lidocaine 10 mg/mL (1 %) injection 1 mL Start: 11-06-2020 End: 11-06-2020 lidocaine 10 mg/mL (1 %) inj ection - ADS Override Pull lidocaine 25 mg/ml / prilocaine 25 mg/ml topical cream (1 source) Antiarrhythmic, Amide Local Anesthetic Start: 04-11-2025 End: 04-11-2025 1 Application, topical, Once, On Wed04/11/25 at 1100, For 1 dose, If no allergy, apply topically to wounds with each wound care appointment with practitioner for pain control. Start: 04-11-2025 End: 04-11-2025 1 Application, topical, Once , On Wed04/11/25 at 1100, For 1 dose, If no allergy, apply topically to wounds with each wound care appointment with practitioner for pain control. 50 ml magnesium sulfate 40 mg/ml injection (1 source) Start: 11-12-2020 End: 11-12-2020 magnesium sulfate 2 g in sterile water (SW) 50 mL IVPB metFORMIN hydrochloride 1000 mg oral tablet (20 sources) Biguanide Start: 01-18-2020 End: 04-26-2025 take 1000 mg by mouth twice daily Metformin Discontinued 1000 MG PO Twice daily January 18, 2020 1:00am January 07, 2024 12:05pm metFORMIN HCl Ac tive metoclopramide 15 mg/actuat nasal spray (4 sources) Dopamine-2 Receptor Antagonist Start: 04-10-2025 End: 04-26-2025 metoclopramide HCl (GIMOTI) 15 mg/spray spray with pump Administer 1 spray into each nostril in the morning and 1 spray at noon and 1 spray in the evening and 1 spray before bedtime. 04/10/2025 04/26/2025 Discontinued Start: 04-10-2025 metoclopramide HCl (GIMOTI) 15 mg/spray nasal spray Indications: Diabetic gastroparesis (HCC) Use 1 spray in the nose four times daily. 9.8 mL 2 04/10/2025 Active Start: 11-13-2020 End: 11-17-2020 metoclopramide (REGLAN) inje ction 10 mg naloxone (NARCAN) injection 0.1 mg (1 source) Start: 11-07-2020 End: 11-21-2020 naloxone (NARCAN) injection 0.1 mg omeprazole 40 mg delayed release oral capsule (10 sources) Proton Pump Inhibitor Start: 08-25-2022 End: 04-26-2025 Omeprazole 40 MG 1 capsule 30 minutes before morning meal and evening meal Orally twice a day for 30 day(s) Aug, Not-Taking 2 ml ondansetron 2 mg/ml injection (1 source) Serotonin-3 Receptor Antagonist Start: 11-05-2020 End: 11-21-2020 take 4 mg intravenous route every six hours as needed 4 mg, Intravenous, Every 6 hours PRN, nausea, vomiting, Starting Wed11/05/20 at 1920 piperacillin 3000 mg / tazobactam 375 mg injection (1 source) Penicillin-class Antibacterial, beta Lactamase Inhibitor Start: 11-05-2020 End: 11-07-2020 take 3.375 g intravenous route every eight hours piperacillin-jeniffer obactam (ZOSYN) IVPB 3.375 g (premix) 100 ml potassium chloride 0.2 meq/ml injection (7 sources) Start: 11-16-2020 End: 11-16-2020 take 20 mEq intravenous route every two hours potassium chloride 20 mEq in 100 mL IVPB Start: 11-12-2020 End: 11-12-2020 potassium chloride 20 mEq in 100 mL IVPB Start: 11-09-2020 End: 2020 take 20 mEq intravenous route every two hours potassium chloride 20 mEq in 100 mL IVPB Start: 11-06-2020 End: 11-16-2020 potassium chloride SA (K-DUR,KLOR-CON) CR tablet 40 mEq Start: 11-05-2020 End: 11-05-2020 potassium chloride SA (K-DUR,KLOR-CON) CR tablet 20 mEq potassium phosphate 30 mmol in sodium chloride 0.9 % (NS) 250 mL IVPB (1 source) Start: 11-05-2020 End: 11-06-2020 potassium phosphate 30 mmol in sodium chloride 0.9 % (NS) 250 mL IVPB 125 ml sodium chloride 9 mg/ ml prefilled syringe (4 sources) Start: 11-19-2020 End: 11-21-2020 sodium chloride (PF) (NS) fl ush 10 mL Start: 11-08-2020 End: 11-21-2020 sodium chloride 0.9% (NS) Start: 11-06-2020 End: 11-06-2020 sodium chloride 0.9% (NS) juan shade 2,000 mL sodium chloride (PF) (NS) 0.9 % contrast line flush 10 mL (1 source) Start: 11-05-2020 End: 11-21-2020 sodium chloride (PF) (NS) 0.9 % contrast line flush 10 mL sodium phosphate, dibasic 59.3 mg/ml / sodium phosphate, monobasic 161 mg/ml enema (1 source) Start: 11-16-2020 End: 11-16-2020 sodium phosphates (FLEETS ADULT) 19-7 gram/118 mL enema 1 each technetium (Tc-99m) (SULFUR COLLOID) solution 1 millicurie (1 source) Start: 11-13-2020 End: 11-13-2020 technetium (Tc-99m) (SULFUR COLLOID) solution 1 millicurie traMADol hydrochloride 50 mg oral tablet (1 source) Opioid Agonist Start: 11-07-2020 End: 11-07-2020 traMADoL (ULTRAM) tablet 50 mg Start: 11-07-2020 End: 11-07-2020 traMADoL (ULTRAM) tablet 50 mg vancomycin (VANCOCIN) 1500 mg in sodium chloride 0.9% (NS) 500 mL IVPB (1 source) Start: 11-05-2020 End: 11-07-2020 take 1500 mg intravenous route every twenty-four hours vancomycin (VANCOCIN) 1500 mg in sodium chloride 0.9% (NS) 500 mL IVPB Problems Active Problems Problem Classification Problem Date Documented Date Episodic/Chronic Abdominal pain (8 sources) Epigastric pain; Translations: [Epigastric pain] Episodic Administrative/social admission (1 source) Dietary counseling and surveillance Episodic Anxiety disorders (1 source) Generalized anxiety disorder; Translations: [Generalized anxiety disorder] Onset: 01-06-2024 01-06-2024 Chronic Bacterial infection; unspecified site (1 source) Infection by methicillin sensitive Staphylococcus aureus; Translations: [MSSA (methicillin susceptible Staphylococcus aureus) infection] Episodic Chronic ulcer of skin (11 sources) Non-pressure chronic ulcer of other part of right foot with fat layer exposed; Translations: [Ulcer of other part of foot] Onset: 03-21-2021 10-27-2023 Chronic Conditions associated with dizziness or vertigo (4 sources) Dizziness and giddiness; Translations: [DIZZINESS AND GIDDINESS] Onset: 03-18-2023 Episodic Diabetes mellitus with complications (20 sources) Type 2 diabetes mellitus with hyperglycemia; Translations: [Type II diabetes mellitus uncontrolled] Onset: 12-26-2018 11-05-2020 Chronic Diabetes mellitus without complication (20 sources) Type 2 diabetes mellitus; Translations: [Type 2 diabetes mellitus without complications] Onset: 11-06-2020 11-06-2020 Chronic Diabetes mellitus without complication (3 sources) Hyperglycemia; Translations: [Hyperglycemia, unspecified] Onset: 03-04-2025 04-26-2025 Episodic Disorders of lipid metabolism (12 sources) Hyperlipidemia; Translations: [Hyperlipidemia, unspecified] Onset: 03-21-2021 Chronic Esophageal disorders (20 sources) Gastroesophageal reflux disease; Translations: [Gastro-esophageal reflux disease without esophagitis] Onset: 10-27-2023 Chronic Essential hypertension (12 sources) Hypertensive disorder; Translations: [Essential (primary) hypertension] Onset: 10-27-2023 Chronic Infective arthritis and osteomyelitis (except that caused by tuberculosis or sexually transmitted disease) (16 sources) Acute osteomyelitis of foot; Translations: [Chronic osteomyelitis of foot with draining sinus] Onset: 02-07-2021 10-27-2023 Chronic Infective arthritis and osteomyelitis (except that caused by tuberculosis or sexually transmitted disease) (5 sources) Subacute osteomyelitis of left foot; Translations: [Subacute osteomyelitis of left foot (HCC)] Malaise and fatigue (2 sources) Fatigue; Translations: [Other fatigue] Onset: 05-10-2025 05-10-2025 Episodic Nausea and vomiting (20 sources) Nausea and vomiting; Translations: [Nausea with vomiting, unspecified] Onset: 04-14-2023 Episodic Nutritional deficiencies (1 source) Vitamin D deficiency; Translations: [Vitamin D deficiency, unspecified] Onset: 11-02-2023 11-02-2023 Chronic Other acquired deformities (1 source) Retrolisthesis; Translations: [Spondylolisthesis, site unspecified] Onset: 01-06-2024 01-06-2024 Episodic Other aftercare (1 source) penitentiary (current) use of oral hypoglycemic drugs; Translations: [CUSTODIAL USE ORAL HYPOGLYCEMIC DX] Onset: 03-22-2023 Episodic Other aftercare (1 source) Encounter for therapeutic drug level monitoring; Translations: [ENC THERAPEUTC DRUG LEVL MONITORING] Onset: 03-22-2023 Episodic Other aftercare (1 source) Other ferry terminal supervisor (current) drug therapy; Translations: [OTH CUSTODIAL CURRENT DRUG THERAPY] Onset: 03-22-2023 Episodic Other aftercare (3 sources) Long-term current use of insulin; Translations: [penitentiary (current) use of insulin] Episodic Other aftercare (2 sources) Wound finding; Translations: [Encounter for other specified aftercare] 03-28-2025 Episodic Other aftercare (2 sources) Encounter for other specified aftercare; Translations: [Encounter for other specified aftercare] Onset: 03-04-2025 Episodic Other bone disease and musculoskeletal deformities (1 source) Amputated foot; Translations: [Acquired absence of left foot] Onset: 01-06-2024 01-06-2024 Chronic Other bone disease and musculoskeletal deformities (9 sources) History of amputation of right foot; Translations: [Acquired absence of right foot] Onset: 03-28-2025 03-28-2025 Chronic Other bone disease and musculoskeletal deformities (1 source) Acquired absence of right foot; Translations: [Acquired absence of right foot] Onset: 03-28-2025 Chronic Other disorders of stomach and duodenum (3 sources) Gastroparesis; Translations: [Gastroparesis] Onset: 04-10-2025 Episodic Other liver diseases (7 sources) Fatty (change of) liver, not elsewhere classified; Translations: [Other chronic nonalcoholic liver disease] Onset: 04-26-2025 04-26-2025 Chronic Other liver diseases (9 sources) Alkaline phosphatase raised; Translations: [Abnormal levels of other serum enzymes] Onset: 01-06-2024 01-06-2024 Episodic Other nervous system disorders (2 sources) Other chronic pain; Translations: [Other chronic pain] Onset: 04-27-2025 Chronic Other nervous system disorders (1 source) Abnormal gait; Translations: [Unspecified abnormalities of gait and mobility] Onset: 10-27-2023 10-27-2023 Episodic Other non-traumatic joint disorders (2 sources) Charcot arthropathy of joint of ankle; Translations: [Charcot's joint of ankle, unspecified laterality] Chronic Other non-traumatic joint disorders (9 sources) Charcot's joint of foot; Translations: [Charcot's joint, left ankle and foot] Onset: 03-19-2021 10-27-2023 Chronic Other non-traumatic joint disorders (7 sources) Instability of joint of right ankle; Translations: [Other instability, right ankle] Onset: 04-11-2025 04-11-2025 Episodic Other nutritional; endocrine; and metabolic disorders (3 sources) Obese class II; Translations: [Body mass index (BMI) 36.0-36.9, adult] Chronic Other nutritional; endocrine; and metabolic disorders (1 source) Body mass index (BMI) 36.0-36.9, adult Chronic Other nutritional; endocrine; and metabolic disorders (1 source) Hypoproteinemia; Translations: [Other disorders of glycoprotein metabolism] Onset: 10-27-2023 10-27-2023 Chronic Other nutritional; endocrine; and metabolic disorders (1 source) Hypocalcemia; Translations: [Hypocalcemia] Onset: 10-27-2023 10-27-2023 Chronic Other nutritional; endocrine; and metabolic disorders (1 source) Body mass index 30+ - obesity; Translations: [Obesity, unspecified] Onset: 11-02-2023 11-02-2023 Chronic Other screening for suspected conditions (not mental disorders or infectious disease) (3 sources) Patient encounter status; Translations: [Encounter for screening for malignant neoplasm of colon] Onset: 11-02-2023 11-02-2023 Episodic Other skin disorders (1 source) Atrophic disorder of skin, unspecified Episodic Other skin disorders (1 source) Corns and callosities; Translations: [Corns and callosities] Onset: 04-11-2025 Episodic Other upper respiratory disease (1 source) Chronic rhinitis; Translations: [Chronic rhinitis] Onset: 04-14-2023 04-14-2023 Chronic Peripheral and visceral atherosclerosis (1 source) Peripheral vascular disease, unspecified; Translations: [Peripheral vascular disease, unspecified] Onset: 01-06-2024 01-06-2024 Chronic Residual codes; unclassified (1 source) Family history of cardiac disorder; Translations: [Family history of ischemic heart disease and other diseases of the circulatory system] Onset: 01-06-2024 01-06-2024 Episodic Spondylosis; intervertebral disc disorders; other back problems (6 sources) Chronic low back pain; Translations: [Chronic midline low back pain without sciatica] Onset: 04-27-2025 04-26-2025 Episodic Unclassified (2 sources) DX Onset: 12-26-2018 Unclassified (2 sources) Low back pain, unspecified; Translations: [Low back pain, unspecified] Onset: 04-27-2025 Unclassified (1 source) Wound Check Onset: 03-04-2025 Unclassified (1 source) Wound on Foot Onset: 03-04-2025 Unclassified (1 source) New Patient Onset: 10-24-2024 Unclassified (1 source) Establish Care Onset: 04-26-2025 Past or Other Problems Problem Classification Problem Date Documented Da te Episodic/Chronic Fracture of upper limb (1 source) Closed multiple fractures of hand bones; Translations: [Unspecified fracture of unspecified wrist and hand, initial encounter for closed fracture] Onset: 05-13-2012 10-27-2023 Episodic Mood disorders (7 sources) Mood disorders Onset: 02-07-2021 Resolved: 05-10-2025 02-07-2021 Open wounds of extremities (12 sources) Open wound of foot with complication; Translations: [Unspecified open wound, left foot, initial encounter] Onset: 09-07-2016 10-27-2023 Episodic Other aftercare (4 sources) 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; Translations: [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 JUSTICE OFFICER CURRENT USE OF INSULIN] Onset: 03-21-2021 Episodic Septicemia (except in labor) (8 sources) Sepsis; Translations: [Sepsis, unspecified organism] Onset: 02-07-2021 Resolved: 01-06-2024 01-06-2024 Episodic Skin and subcutaneous tissue infections (3 sources) Cutaneous abscess of left foot; Translations: [Cellulitis] Onset: 01-24-2014 10-27-2023 Episodic Unclassified (3 sources) Open wound of left foot 04-11-2025 Results Test Name Value Interpretation Reference Range Facility XR SPINE LUMB COMP INCL BEND 6+ VWSon 05-04-2025 XR SPINE LUMB COMP INCL BEND 6+ VWS XR SPINE LUMB COMP INCL BEND 6+ VWS Lumbosacral spine: 05/02/2025 2:31 PM. Reason for [...] Vivien Feliz MD on 05/04/2025 3:25 PM Normal [facility] CBC WITH AUTO DIFFERENTIALon 05-02-2025 BASOPHILS ABSOLUTE COUNT (10*3/UL) BY AUTOMATED COUNT 0.1 10*3/uL Normal 0.0-0.2 [facility] Comment on above: Performed By: #### C BCA #### [facility] ([facility]) [address] [place] [address] VIR BASOPHILS RELATIVE PERCENT BY AUTOMATED COUNT 1.3 % Normal [facility] Comment on above: Performed By: #### C BCA #### [facility] ([facility]) [address] [place] [address] VIR CELLAVISION DIFFERENTIAL TYPE AUTOMATED DIFFERENTIAL Normal [facility] Comment on above: Performed By: #### C BCA #### [facility] ([facility]) [address] [place] [address] VIR Eosinophils (Bld) [#/Vol] 0.2 10*3/uL Normal 0.0-0.4 [facility] Comment on above: Performed By: #### C BCA #### [facility] ([facility]) [address] [place] [address] VIR EOSINOPHILS RELATIVE PERCENT BY AUTOMATED COUNT 2.5 % Normal [facility] Comment on above: Performed By: #### C BCA #### [facility] ([facility]) [address] [place] [address] VIR Erythrocyte distribution width (RBC) [Ratio] 15.2 % High 11.5-15 [facility] Comment on above: Performed By: #### C BCA #### [facility] ([facility]) [address] [place] [address] VIR Hematocrit (Bld) [Volume fraction] 42.3 % Normal 39-50 [facility] Comment on above: Performed By: #### C BCA #### [facility] ([facility]) [address] [place] [address] VIR Hemoglobin (Bld) [Mass/Vol] 14.1 g/dL Normal 13-17 [facility] Comment on above: Performed By: #### C BCA #### [facility] ([facility]) [address] [place] [address] VIR LYMPHOCYTES ABSOLUTE COUNT (10*3/UL) BY AUTOMATED COUNT 1.9 10*3/uL Normal 1.0-3.5 [facility] Comment on above: Performed By: #### C BCA #### [facility] ([facility]) [address] [place] [address] VIR LYMPHOCYTES RELATIVE PERCENT BY AUTOMATED COUNT 22.1 % Normal [facility] Comment on above: Performed By: #### C BCA #### [facility] ([facility]) [address] [place] [address] VIR MCH (RBC) [Entitic mass] 27.5 pg Normal 27-34 [facility] Comment on above: Performed By: #### C BCA #### [facility] ([facility]) [address] [place] [address] VIR MCHC (RBC) [Mass/Vol] 33.4 g/dL Normal 32-36 [facility] Comment on above: Performed By: #### C BCA #### [facility] ([facility]) [address] [place] [address] VIR MCV (RBC) [Entitic vol] 82 fL Normal 80-100 [facility] Comment on above: Performed By: #### C BCA #### [facility] ([facility]) [address] [place] [address] VIR MONOCYTES ABSOLUTE COUNT (10*3/UL) BY AUTOMATED COUNT 0.9 10*3/uL Normal 0.0-0.9 [facility] Comment on above: Performed By: #### C BCA #### [facility] ([facility]) [address] [place] [address] VIR MONOCYTES RELATIVE PERCENT BY AUTOMATED COUNT 10.6 % Normal [facility] Comment on above: Performed By: #### C BCA #### [facility] ([facility]) [address] [place] [address] VIR NEUTROPHILS ABSOLUTE COUNT BY AUTOMATED COUNT 5.5 10*3/uL Normal 1.5-6.6 [facility] Comment on above: Performed By: #### C BCA #### [facility] ([facility]) [address] [place] [address] VIR NEUTROPHILS RELATIVE PERCENT BY AUTOMATED COUNT 63.5 % Normal [facility] Comment on above: Performed By: #### C BCA #### [facility] ([facility]) [address] [place] [address] VIR Platelet mean volume (Bld) [Entitic vol] 9.5 fL Normal 7-12 [facility] Comment on above: Performed By: #### C BCA #### [facility] ([facility]) [address] [place] [address] VIR Platelets (Bld) [#/Vol] 298 10*3/uL Normal 150-450 [facility] Comment on above: Performed By: #### C BCA #### [facility] ([facility]) [address] [place] [address] VIR RBC COUNT 5.14 X10E12/L Normal 4.1-5.7 [facility] Comment on above: Performed By: #### C BCA #### [facility] ([facility]) [address] [place] [address] VIR WBC (Bld) [#/Vol] 8.7 10*3/uL Normal 4-11 [facility] Comment on above: Performed By: #### C BCA #### [facility] ([facility]) [address] [place] [address] VIR COMPREHENSIVE METABOLIC PANE Anuel 05-02-2025 Albumin [Mass/Vol] 3.7 g/dL Normal 3.2-5.3 [facility] Comment on above: Performed By: #### C MP #### [facility] ([facility]) [address] [place] [address] VIR ALP [Catalytic activity/Vol] 102 U/L Normal 39-130 [facility] Comment on above: Performed By: #### C MP #### [facility] ([facility]) [address] [place] [address] VIR ALT [Catalytic activity/Vol] 14 U/L Normal <=40 [facility] Comment on above: Performed By: #### C MP #### [facility] ([facility]) [address] [place] [address] VIR Anion gap [Moles/Vol] 10 mmol/L Normal 5-15 [facility] Comment on above: Performed By: #### C MP #### [facility] ([facility]) [address] [place] [address] VIR AST [Catalytic activity/Vol] 18 U/L Normal <=41 [facility] Comment on above: Performed By: #### C MP #### [facility] ([facility]) [address] [place] [address] VIR Bilirubin [Mass/Vol] 0.9 mg/dL Normal 0.3-1.2 [facility] Comment on above: Performed By: #### C MP #### [facility] ([facility]) [address] [place] [address] VIR Calcium [Mass/Vol] 9.6 mg/dL Normal 8.5-10.5 [facility] Comment on above: Performed By: #### C MP #### [facility] ([facility]) [address] [place] [address] VIR Chloride [Moles/Vol] 100 mmol/L Normal 98-109 [facility] Comment on above: Performed By: #### C MP #### [facility] ([facility]) [address] [place] [address] VIR CO2 [Moles/Vol] 22 mmol/L Normal 22-32 [facility] Comment on above: Performed By: #### C MP #### [facility] ([facility]) [address] [place] [address] VIR Creatinine [Mass/Vol] 1.61 mg/dL High 0.60-1.30 [facility] Comment on above: Result Comment: METH OD TRACEABLE TO IDMS STANDARD Performed By: #### C MP #### [facility] ([facility]) [address] [place] [address] VIR GFR/1.73 sq M.predicted among non-blacks MDRD (S/P/Bld) [Vol rate/Area] 49 mL/min/{1.73_m2} Low >=60 [facility] Comment on above: Result Comment: Repo rted eGFR is based on the CKD-EPI 2020 equation that does not use a race coefficient. Performed By: #### C MP #### [facility] ([facility]) [address] [place] [address] VIR Glucose [Mass/Vol] 323 mg/dL High 65-99 [facility] Comment on above: Performed By: #### C MP #### [facility] ([facility]) [address] [place] [address] VIR Potassium [Moles/Vol] 4.1 mmol/L Normal 3.5-5.0 [facility] Comment on above: Performed By: #### C MP #### [facility] ([facility]) [address] [place] [address] VIR Protein [Mass/Vol] 8.9 g/dL High 6.0-8.0 [facility] Comment on above: Performed By: #### C MP #### [facility] ([facility]) [address] [place] [address] VIR Sodium [Moles/Vol] 132 mmol/L Low 134-146 [facility] Comment on above: Performed By: #### C MP #### [facility] ([facility]) [address] [place] [address] VIR Urea nitrogen [Mass/Vol] 28 mg/dL High 5-23 [facility] Comment on above: Performed By: #### C MP #### [facility] ([facility]) [address] [place] [address] VIR HEMOGLOBIN A1Con 05-02-2025 Glucose [Mass/Vol] 283 mg/dL Normal [facility] Comment on above: Performed By: #### H A1C #### [facility] ([facility]) [address] [place] [address] VIR HbA1c (Bld) [Mass fraction] 11.5 % High 4.4-5.6 [facility] Comment on above: Result Comment: ADA Guidelines Result HgbA1c Normal : less than 5.7 % Prediabetes : 5.7 % to 6.4 % Diabetes : > 6.4 % Use with caution in patients with abnormal hemoglobin variants as the half-life of red blood cells and in vivo glycation rates are affected. Performed By: #### H A1C #### [facility] ([facility]) [address] [place] [address] VIR Debridementon 04-24-2025 SCOTT Vaughn 04/24/2025 12:02 PM Debridement Performed by: SCOTT Vaughn Authorized by: SCOTT Vaughn Associated wounds: Wound 03/28/25 1 Diabetic Ulcer Foot Right;Plantar Consent: Consent obtained: Verbal and written Consent given by: Patient Risks discussed: Yes Debridement Details: Performed by: DRYING ROOM ATTENDANT Type: Sharp Level: Subcutaneous Tissue, Devitalized tissue and other material debrided: Subcutaneous tissue, fibrin, biofilm and callus Anesthesia administration: topical Anesthesia: EMLA Total Surface Area Debrided cm^2: 7.26 Specimen Taken: None Instrument: Curette Amount of bleeding: Small Bleeding Control: Pressure Response to treatment: Procedure was tolerated well Tissue Applied?: No MANUALLY TRANSCRIBED RESULTS [facility] No Panel Informationon 04-24 APPLIED IN CLINIC TODAY. MANUALLY TRANSCRIBED RESULTS No Panel InformationOrdered By: Sulma Humphreys on 04-24-2025 [facility] NURSING PROGon 04-20-2025 NURSING PROG HNO ID: [id number] Author: ROBBIN CONTI RN Service: ? Author Type: Registered Nurse Type: Nursing Progress Note Filed: 04/20/2025 11:04 Note Text: 1102 Spoke to patient to give procedure day instructions. Patient states he was told it was denied . Attempted to get clarification, but was unable to. Phone number to scheduling office provided to patient so that he can tell them the same thing I was told. No instructions given. [facility] 04-18-2025 [facility] Telephone (arviem AGSSP) MORE KINGSLEY [facility]. ([id number]) 1965 M Date Time Provider Department 04/18/25 JEROME DEL TORO arviem AGVIKAS During your visit today, we recorded the following information about you: Tamara Goncalves RN 04/19/2025 8:06 AM Addendum G-POEM for date of service 04/25/2025. Appeal with all information including letter, study, JAMIN notes, GES result, EGG result, EGD result, CT result, faxed to [employer]/Appeals Dept at fax [phone] with confirmation. Appeal also mailed out to [employer]/Appeals Dept to the address provided. Copy placed in shared clinical office filing cabinet. Tamara Goncalves RN 05/03/2025 10:35 AM Addendum Email received from [place]/Pre-Access Denials Team: We are glad to inform you that your appeal was successfully overturned and CPT 69876 is now authorized and test needs to be rescheduled before 10/30/25. Called patient - message on identified voice mail to let him know that the denial was overturned and procedure is approved. Request call back to have procedure scheduled. Next available date is 05/16/25. Allergies As of Date: 04/18/2025 Noted Allergy Reaction VENOM-HONEY BEE 11/05/2020 10 - Anaphylaxis 14 - Other: See Comments 7 - Swelling Comments: Local swelling Date Reviewed: 04/10/2025 Reviewed by: Art Figueredo DO - Fully Assessed Reason for Visit: Care Coordination [3411] Cmt: Appeal for GPOEM denial Prescriptions as of 05/03/2025 - lisinopril (ZESTRIL) 10 mg tablet Take 10 mg by mouth. - famotidine (PEPCID) 40 mg tablet Take 40 mg by mouth. - atorvastatin (LIPITOR) 40 mg tablet Take 40 mg by mouth. - hydroCHLOROthiazide 12.5 mg tablet Take 12.5 mg by mouth. - pantoprazole DR (PROTONIX) 40 mg tablet Take 40 mg by mouth. - insulin regular, human (NOVOLIN R INJECTION) by INJECTION(UNSPECIFIED PARENTERAL ROUTES) route. - metoclopramide HCl (GIMOTI) 15 mg/spray nasal spray Use 1 spray in the nose four times daily. - sucralfate (CARAFATE) 1 gram tablet Take 1 tablet by mouth two times a day. Start taking medication after procedure for 4 weeks. - pantoprazole DR (PROTONIX) 40 mg tablet Take 1 tablet by mouth two times a day. Start taking medication after procedure for 4 weeks. Problem List As Of Date: 04/18/2025 (None) Encounter Status:Closed by TAMARA GONCALVES on 04/18/25 [facility] 04-11-2025 [facility] Telephone (GENSSP) MORE KINGSLEY JR. ([id number]) 1965 M Date Time Provider Department 04/11/25 JEROME DEL TORO [facility] During your visit today, we recorded the following information about you: Jeremiah Stiles RN 04/11/2025 12:55 PM Signed PA for Gimoti initiated electronically through [facility] site with Anderson Code 2S6S26 started by [facility] at [phone] with fax# [phone]. Awaiting response [facility] [employer] ID# [id number] Rx Grp RXAETiff Merino LPN 04/11/2025 3:19 PM Signed Gimoti Medication approved from 11/22/24 thru 11/21/25. Patient and pharmacy aware. Tiff Mejias LPN Allergies As of Date: 04/11/2025 Noted Allergy Reaction VENOM-HONEY BEE 11/05/2020 10 - Anaphylaxis 14 - Other: See Comments 7 - Swelling Comments: Local swelling Date Reviewed: 04/10/2025 Reviewed by: Art Figueredo DO - Fully Assessed Reason for Visit: Medication Preauthorization [914] Cmt: PA for Gimoti Prescriptions as of 04/11/2025 - lisinopril (ZESTRIL) 10 mg tablet Take 10 mg by mouth. - famotidine (PEPCID) 40 mg tablet Take 40 mg by mouth. - atorvastatin (LIPITOR) 40 mg tablet Take 40 mg by mouth. - hydroCHLOROthiazide 12.5 mg tablet Take 12.5 mg by mouth. - pantoprazole DR (PROTONIX) 40 mg tablet Take 40 mg by mouth. - insulin regular, human (NOVOLIN R INJECTION) by INJECTION(UNSPECIFIED PARENTERAL ROUTES) route. - metoclopramide HCl (GIMOTI) 15 mg/spray nasal spray Use 1 spray in the nose four times daily. - sucralfate (CARAFATE) 1 gram tablet Take 1 tablet by mouth two times a day. Start taking medication after procedure for 4 weeks. - pantoprazole DR (PROTONIX) 40 mg tablet Take 1 tablet by mouth two times a day. Start taking medication after procedure for 4 weeks. Medication notes this encounter GIMOTI 15 MG/SPRAY NASAL SPRAY WITH PUMP >> Jeremiah Stiles RN 04/11/2025 12:55 PM >> JEREMIAH STILES WedApril 11, 2025 12:55 PM PA for Gimoti initiated electronically through [facility] site with Anderson Code 2S6S26 started by [facility] at [phone] with fax# [phone]. Awaiting response [facility] [employer] ID# [id number] Rx Grp RXAETD >> Tiff Mejias LPN 04/11/2025 3:19 PM >> TIFF MEJIAS WedApril 11, 2025 3:19 PM Med approved thru 11/21/25 Problem List As Of Date: 04/11/2025 (None) Encounter Status:Closed by JEREMIAH STILES on 04/11/25 Normal [facility] Debridementon 04-11-2025 SCOTT Vaughn 04/11/2025 12:18 PM Debridement Performed by: SCOTT Vaughn Authorized by: SCOTT Vaughn Associated wounds: Wound 03/28/25 1 Diabetic Ulcer Foot Right;Plantar Consent: Consent obtained: Verbal and written Consent given by: Patient Risks discussed: Yes Debridement Details: Performed by: DRYING ROOM ATTENDANT Type: Sharp Level: Subcutaneous Tissue, Devitalized tissue and other material debrided: Subcutaneous tissue, callus and fibrin Anesthesia administration: topical Anesthesia: EMLA Total Surface Area Debrided cm^2: 7.78 Specimen Taken: None Instrument: Curette Amount of bleeding: Medium Bleeding Control: Pressure Response to treatment: Procedure was tolerated well Tissue Applied?: No MANUALLY TRANSCRIBED RESULTS [employer] Xeroform 4x4on 04-11-2025 Applied in clinic today MANUALLY TRANSCRIBED RESULTS [employer] ACETYLCHOLINE REC BINDING AB on 04-10-2025 ACETYLCHOLINE BINDING, QUAL Negative Normal Negative [facility] Comment on above: Order Comment: Specedith carver Type: BLOOD SPECIMEN Ordering Facility: [facility] Address: [address] [place] [address] Result Comment: Anti -acetylcholine receptor binding antibody test is used as an aid in diagnosis of myasthenia gravis. A negative result cannot exclude myasthenia gravis. Clinical correlation is required. Performed By: #### A CHRAB #### [facility] CLIA [id number] [address] [place] [address] [place] Acetylcholine receptor binding Ab (S) [Moles/Vol] <0.02 Normal <0.21 [facility] Comment on above: Order Comment: Irving carver Type: BLOOD SPECIMEN Ordering Facility: [facility] Address: [address] [place] [address] Performed By: #### A CHRAB #### [facility] CLIA [id number] [address] [place] [address] [place] AMINO ACIDS, PLASMA W/ CONSU LTATIONon 04-10-2025 Alanine [Moles/Vol] 412 umol/L Normal 177-583 [facility] Comment on above: Order Comment: Speci men Type: BLOOD SPECIMEN Ordering Facility: [facility] Address: [address] [place] [address] Performed By: #### P AABI #### [facility] CLIA [id number] [address] [place] [address] [place] Alloisoleucine [Moles/Vol] <2 Normal 0-2 [facility] Comment on above: Order Comment: Speci men Type: BLOOD SPECIMEN Ordering Facility: [facility] Address: [address] [place] [address] Performed By: #### P AABI #### [facility] CLIA [id number] [address] [place] [address] [place] Alpha aminoadipate [Moles/Vol] <2 Normal 0-6 [facility] Comment on above: Order Comment: Speci men Type: BLOOD SPECIMEN Ordering Facility: [facility] Address: [address] [place] [address] Performed By: #### P AABI #### [facility] CLIA [id number] [address] [place] [address] [place] AMINO ACID CONSULTATION, PLASMA Normal [facility] Comment on above: Order Comment: Speci men Type: BLOOD SPECIMEN Ordering Facility: [facility] Address: [address] [place] [address] Result Comment: This plasma amino acid analysis is mainly notable for low levels of serine and glycine. Low levels of plasma serine and glycine is potentially related to the patient's clinical history of diabetes. Reference intervals from Jovani Scott, Pat MG, Amarjit MANDEEP, and Anderson DK: Biochemical Genetics: A Laboratory Manual, Copyright 1989 by [employer] Reference intervals not established for some amino acids. This test was developed and its performance characteristics determined by the [facility] Department of Pathology and Laboratory Medicine. It has not been cleared or approved by the FDA. The [facility] Department of Pathology and Laboratory Medicine is regulated under CLIA as qualified to perform high-complexity testing. This test is used for clinical purposes. It should not be regarded as investigational or for research. Performed By: #### P AABI #### [facility] CLIA [id number] [address] [place] [address] [place] AMINO ACIDS REVIEW, PLASMA Reviewed by Forrest Gomez MD, Ph.D ([id number]) [facility] Comment on above: Order Comment: Speci men Type: BLOOD SPECIMEN Ordering Facility: [facility] Address: [address] [place] [address] Performed By: #### P AABI #### [facility] CLIA [id number] [address] [place] [address] [place] Arginine [Moles/Vol] 73 umol/L Normal 15-128 [facility] Comment on above: Order Comment: Speci men Type: BLOOD SPECIMEN Ordering Facility: [facility] Address: [address] [place] [address] Performed By: #### P AABI #### [facility] CLIA [id number] [address] [place] [address] [place] Asparagine [Moles/Vol] 31 umol/L Low 35-74 [facility] Comment on above: Order Comment: Speci men Type: BLOOD SPECIMEN Ordering Facility: [facility] Address: [address] [place] [address] Performed By: #### P AABI #### [facility] CLIA [id number] [address] [place] [address] [place] Aspartate [Moles/Vol] 3 umol/L Normal 1-25 [facility] Comment on above: Order Comment: Speci men Type: BLOOD SPECIMEN Ordering Facility: [facility] Address: [address] [place] [address] Performed By: #### P AABI #### [facility] CLIA [id number] [address] [place] [id number] [place] Citrulline [Moles/Vol] 38 umol/L Normal 12-55 [facility] Comment on above: Order Comment: Speci men Type: BLOOD SPECIMEN Ordering Facility: [facility] Address: [address] [place] [address] Performed By: #### P AABI #### [facility] CLIA [id number] [address] [place], [place] [address] [place] Cystine [Moles/Vol] 50 umol/L Normal 5-82 [facility] Comment on above: Order Comment: Speci men Type: BLOOD SPECIMEN Ordering Facility: [facility] Address: [address] [place] [address] Performed By: #### P AABI #### [facility] CLIA [id number] [address] [place] [address] [place] Glutamate [Moles/Vol] 82 umol/L Normal 10-131 [facility] Comment on above: Order Comment: Speci men Type: BLOOD SPECIMEN Ordering Facility: [facility] Address: [address] [place] [address] Performed By: #### P AABI #### [facility] CLIA [id number] [address] [place], [place] [address] [place] Glutamine [Moles/Vol] 478 umol/L Normal 205-756 [facility] Comment on above: Order Comment: Speci men Type: BLOOD SPECIMEN Ordering Facility: [facility] Address: [address] [place], [place] [address] Performed By: #### P AABI #### [facility] CLIA [id number] [address] [place], [place] [address] [place] Glycine [Moles/Vol] 125 umol/L Low 151-490 [facility] Comment on above: Order Comment: Speci men Type: BLOOD SPECIMEN Ordering Facility: [facility] Address: [address] [place] [address] Performed By: #### P AABI #### [facility] CLIA [id number] [address] [place] [address] [place] Histidine [Moles/Vol] 53 umol/L Low 72-124 [facility] Comment on above: Order Comment: Speci men Type: BLOOD SPECIMEN Ordering Facility: [facility] Address: [address] [place] [address] Performed By: #### P AABI #### [facility] CLIA [id number] [address] [place] [address] [place] Hydroxylysine [Moles/Vol] <2 High <=0 [facility] Comment on above: Order Comment: Speci men Type: BLOOD SPECIMEN Ordering Facility: [facility] Address: [address] [place] [address] Performed By: #### P AABI #### [facility] CLIA [id number] [address] [place] [address] [place] Hydroxyproline [Moles/Vol] Normal [facility] Comment on above: Order Comment: Speci men Type: BLOOD SPECIMEN Ordering Facility: [facility] Address: [address] [place] [address] Result Comment: Unab le to assay. Analytical difficulty Performed By: #### P AABI #### [facility] CLIA [id number] [address] [place] [address] [place] Isoleucine [Moles/Vol] 62 umol/L Normal 30-108 [facility] Comment on above: Order Comment: Speci men Type: BLOOD SPECIMEN Ordering Facility: [facility] Address: [address] [place] [address] Performed By: #### P AABI #### [facility] CLIA [id number] [address] [place] [address] [place] Leucine [Moles/Vol] 109 umol/L Normal 72-201 [facility] Comment on above: Order Comment: Speci men Type: BLOOD SPECIMEN Ordering Facility: [facility] Address: [address] [place] [address] Performed By: #### P AABI #### [facility] CLIA [id number] [address] [place] [address] [place] Lysine [Moles/Vol] 143 umol/L Normal 116-296 [facility] Comment on above: Order Comment: Speci men Type: BLOOD SPECIMEN Ordering Facility: [facility] Address: [address] [place] [address] Performed By: #### P AABI #### [facility] CLIA [id number] [address] [place] [address] [place] Methionine [Moles/Vol] 19 umol/L Normal 10-42 [facility] Comment on above: Order Comment: Speci men Type: BLOOD SPECIMEN Ordering Facility: [facility] Address: [address] [place] [address] Performed By: #### P AABI #### [facility] CLIA [id number] [address] [place] [address] [place] Ornithine [Moles/Vol] 43 umol/L Low 48-195 [facility] Comment on above: Order Comment: Speci men Type: BLOOD SPECIMEN Ordering Facility: [facility] Address: [address] [place] [address] Performed By: #### P AABI #### [facility] CLIA [id number] [address] [place], [place] [address] [place] Phenylalanine [Moles/Vol] 63 umol/L Normal 35-85 [facility] Comment on above: Order Comment: Speci men Type: BLOOD SPECIMEN Ordering Facility: [facility] Address: [address] [place] [address] Performed By: #### P AABI #### [facility] CLIA [id number] [address] [place] [address] [place] Proline [Moles/Vol] 237 umol/L Normal 97-329 [facility] Comment on above: Order Comment: Speci men Type: BLOOD SPECIMEN Ordering Facility: [facility] Address: [address] [place] [address] Performed By: #### P AABI #### [facility] CLIA [id number] [address] [place] [address] [place] Sarcosine [Moles/Vol] <2 High <=0 [facility] Comment on above: Order Comment: Speci men Type: BLOOD SPECIMEN Ordering Facility: [facility] Address: [address] [place] [address] Performed By: #### P AABI #### [facility] CLIA [id number] [address] [place] [address] [place] Serine [Moles/Vol] 41 umol/L Low 58-181 [facility] Comment on above: Order Comment: Speci men Type: BLOOD SPECIMEN Ordering Facility: [facility] Address: [address] [place] [address] Performed By: #### P AABI #### [facility] CLIA [id number] [address] [place] [address] [place] Taurine [Moles/Vol] 58 umol/L Normal 54-210 [facility] Comment on above: Order Comment: Speci men Type: BLOOD SPECIMEN Ordering Facility: [facility] Address: [address] [place] [address] Performed By: #### P AABI #### [facility] CLIA [id number] [address] [place] [address] [place] Threonine [Moles/Vol] 109 umol/L Normal 60-225 [facility] Comment on above: Order Comment: Speci men Type: BLOOD SPECIMEN Ordering Facility: [facility] Address: [address] [place] [address] Performed By: #### P AABI #### [facility] CLIA [id number] [address] [place] [address] [place] Tyrosine [Moles/Vol] 68 umol/L Normal 34-112 [facility] Comment on above: Order Comment: Speci men Type: BLOOD SPECIMEN Ordering Facility: [facility] Address: [address] [place] [address] Performed By: #### P AABI #### [facility] CLIA [id number] [address] [place] [address] [place] Valine [Moles/Vol] 227 umol/L Normal 119-336 [facility] Comment on above: Order Comment: Speci men Type: BLOOD SPECIMEN Ordering Facility: [facility] Address: [address] [place] [address] Performed By: #### P AABI #### [facility] CLIA [id number] [address] [place] [address] [place] CARNITINE FREE AND TOTAL, PL ASMAon 04-10-2025 C0 [Moles/Vol] 39.0 umol/L Normal 20.0-53.0 [facility] Comment on above: Order Comment: Speci men Type: BLOOD SPECIMEN Ordering Facility: [facility] Address: [address] [place] [address] Performed By: #### C ARNPL #### [facility] CLIA [id number] [address] [place] [address] [place] Carnitine [Moles/Vol] 49.3 umol/L Normal 26.4-66.0 [facility] Comment on above: Order Comment: Speci men Type: BLOOD SPECIMEN Ordering Facility: [facility] Address: [address] [place] [address] Performed By: #### C ARNPL #### [facility] CLIA [id number] [address] [place] [address] [place] Carnitine esters [Moles/Vol] 10.3 umol/L Normal 3.0-15.6 [facility] Comment on above: Order Comment: Gloriaedith carver Type: BLOOD SPECIMEN Ordering Facility: [facility] Address: [address] [place] [address] Performed By: #### C MIHAELAPL #### [facility] CLIA [id number] [address] [place] [address] [place] Carnitine esters/Carnitine.free (C0) [Molar ratio] 0.3 Normal 0.1-0.7 [facility] Comment on above: Order Comment: Gloriaedith carver Type: BLOOD SPECIMEN Ordering Facility: [facility] Address: [address] [place] [address] Result Comment: NOTE : The determination of the plasma free carnitine [...] determined by the Pathology and Laboratory Medicine [place] at the [facility]. The U.S. Food and Drug Administration has not approved or cleared this test, however, FDA clearance or approval is not currently required for clinical use. Performed By: #### C ARNPL #### [facility] CLIA [id number] [address] [place] [address] [place] CK SerPl-cCncon 04-10-2025 CK [Catalytic activity/Vol] 41 U/L Low 51-298 [facility] Comment on above: Order Comment: Irving wen Type: BLOOD SPECIMEN Ordering Facility: [facility] Address: [address] [place] [address] Performed By: #### 1 327-1, 7161-6 #### [facility] [id number] [address] [place] [address] OF [facility] CNOVon 04-10-2025 CNOV Office Visit (GENSSP ) MORE KINGSLEY JR. ([id number]) 1965 M Date Time Provider Department 04/10/25 10:00 AM JEROME DEL TORO GENP During your visit today, we recorded the following information about you: Pulse Blood pressure Weight Height 101/minute 149/84 115 kg 1.778 m Andrey [place] 04/10/2025 10:33 AM Signed What is the reason for your visit today? Consult /empties Who is your referring physician? Imad Asanew Are you having poor oral intake? YES Have you had unintentional weight loss of 15 lbs/7 Kg in the last 3-6 months? NO Bowels: regular Wound: clean AND dry Temperature: No Drains: No Jerome Del Toro DO 04/10/2025 10:33 AM Signed [facility] [place] Gastroparesis/Dysmotil ity Consultation SERVICE DATE: 04/10/2025 SERVICE TIME: 10:04 AM PRIMARY CARE PHYSICIAN: No primary care provider on file. Imad Asaad [address] [address] My final recommendations will be communicated back to the requesting physician by way of shared Medical record or letter to requesting physician via [place] mail. Assessment ASSESSMENT 59 year old male with medical refractory gastroparesis, the etiology of which is most likely diabetic. There is no clinical suspicion for mid/hind-gut dysmotility based on bowel patterns and symptom distribution. Case is further confounded by multiple associated diabetic complications including foot amputation, CKD 3, neuropathy. Currently patient is tolerating a Soft diet, and does not exhibit severe malnutrition/weight loss, and is actively gaining weight Based on patient's etiology, current symptoms, and dysmotility workup, I feel that patient is an appropriate candidate for pyloric therapy. It was discussed in detail that the procedure would primarily aim to improve symptoms of vomiting/retching as well as delayed fullness. There may be some ancillary improvements to a lesser extent in areas of nausea and upper abdominal pressure, but is not guaranteed. Symptoms response of pain, nausea, bloating, and bowel patterns are unpredictable and may be confounded by other factors. Patient will ultimately require longitudinal adjunctive care including medical, nutritional/dietary, and behavioral/psychosocia l support for optimal symptom palliation PLAN I discussed surgical therapy for gastroparesis in detail. Based on this discussion, More Kingsley Jr. wishes to proceed with peroral pyloromyotomy 1. Diabetic gastroparesis (HCC) (E11.43) Chronic condition with onset in mid to late 20s, characterized by persistent nausea and vomiting. Abnormal gastric emptying study in October 2020 showed 17% retention at 4 hours. No prior treatment with metoclopramide. No history of abdominal surgery or Botox injections. No significant cardiac issues reported. -Gastroparesis diet as tolerated, [facility] packet provided - Initiated Gemoti nasal spray, 1 spray in one nostril 3-4 times daily. Educated patient on potential side effects, including tremors and twitching, and advised to discontinue use if these occur. - Discussed G-POEM procedure, including risks (1% complication rate) and post-procedure requirements (high-dose Protonix and Carafate BID for 30 days, liquid diet 3 days pre-procedure and 1 week post-procedure). Patient expressed interest in proceeding with the procedure. -Protonix and Carafate twice daily 30 days postop - Nurse to coordinate scheduling for the G-POEM procedure. -Behavioral health eval today - Follow-up 4 weeks after procedure for recheck Patient declines enrollment in EMPTIES and CGM trials which were discussed and offered Risks of the procedure including bleeding (including major bleeding requiring transfusion), perforation, infection/abscess, ulceration (need for adherence to acid suppressive therapy), exacerbation of symptoms, symptom recurrence, anesthesia related complications, cardiopulmonary events, thromboembolic events, aspiration/pneumonia, dental gum injury, failure to identify/treat a condition, need for additional procedures/surgeries, as well as other rare complications including were presented. Alternatives of Pyloroplasty, Pyloric Dilation and Botox, and continued medical/dietary management were reviewed. Patient elects to proceed and full written consent was obtained. ____ NAME: More Kingsley Jr. CLINIC NO: [id number] DATE OF SERVICE: April 10, 2025 This is an initial consultation for More Kingsley Jr. who was referred to me by Dr. Tracy Yoon for evaluation of medical refractory gastroparesis. My final recommendation will be communicated via shared electronic medical record. CHIEF COMPLAINT Diabetic Gastroparesis HISTORY OF PRESENT ILLNESS More Kingsley Jr. is a 59 year old male who comes in today for surgical (more content not included)... Normal [facility] Office Visit ([facility] ) MORE KINGSLEY JR. ([id number]) 1965 M Date Time Provider Department 04/10/25 9:00 AM COURTNEY GLOVER [facility] During your visit today, we recorded the following information about you: Courtney Glover PSYD 04/10/2025 1:08 PM Signed [facility] Date of Encounter: April 10, 2025 Identifying Information Name: More Kingsley Jr. : 1965 Age: [age] year old Sex: male Race or Ethic Origin: IMPRESSIONS More Kingsley Jr. is a 59 year old male with a history of gastroparesis who was referred to behavioral health by Dr. Figueredo for evaluation and treatment of lifestyle and behavioral factors that may be contributing to symptoms. Patient presents with 10 year history of vomiting in the mornings, secondary to poorly controlled diabetic gastroparesis. Most recent A1C in April 2024 was 11.3. Patient is not actively checking his blood sugar--previously had used finger pricks but has been out of supplies for some time and is having trouble coordinating between his physician and pharmacist to get the supplies he needs to be able to monitor this more closely. There is some misinformation about his diabetes management, where patient describes desiring to have the virus surrounding my pancreas cut out or having a pig pancreas transplanted in so I can eat sweets again. In addition to GI symptoms, the patient describes chronic insomnia, diffuse bodily pain, and chronic headaches/migraines since photographer news. He denies any significant psychiatric history and has never been engaged in psychotherapy nor taken any medication for his mood, citing he does not see the point. Patient identified goals of less nausea/vomiting, more athletic physique. We discussed the following plan: -Discussed consult to endocrinology for better management of diabetes. Patient declined. -I do not think the patient is a candidate for brain gut behavioral therapies given lack of interest in behavioral therapy. -Patient should continue to follow up with medical team for further recommendations Chief Complaint: More Kingsley . is a 59 year old male with a history of gastroparesis who was referred to behavioral health by Dr. Figueredo for evaluation and treatment of lifestyle and behavioral factors that may be contributing to symptoms. HPI: He does note a history of GI difficulties since childhood that were manageable until his late 20s, when he began experiencing regular vomiting. Was put on PPI which did not make any difference. Patient reported after toe amputation around 10 years ago, he began experiencing daily frequent vomiting and acid reflux. Denied abdominal pain. Vomiting: Symptoms are most problematic in the morning. Vomiting does typically relieve symptoms. Typically only one episode of vomiting. Vomiting is triggered by certain positional changes (bending over, laying flat on his back), early in the morning upon awakening, certain foods. He experiences both effortless regurgitation and effortful vomiting. Can also experience vomiting when brushing his teeth. Diabetes: Patient uses finger prick to check his blood sugars but notes he does not have the materials he needs to be able to check (missing test strips, etc). Notes he has had problems with coordination between physician and pharmacy for the medications he needs. Has had ongoing trouble managing his blood sugars. Last A1C from 04/2024 was 11.3. Balance is impaired because he is missing his prosthesis. Other diabetic complications include visual changes. Bowels: 1-2 Bms per day. Consistency has varied over time--consistency is soft, volume sounds to be moderate. If he eats too much protein, he reports more straining but this is only occasionally. Endorses incomplete evacuation but denies straining despite this sensation. Dysphagia: Notes it is harder to swallow pills than it was in the past. Only occasionally having trouble swallowing food if he swallows a larger bite. Has modified his eating to take smaller bites. URINARY SYMPTOMS []Dysuria (pain with urination)-denied [x]Difficulty voiding urine-harder to evacuate bladder when sitting compared to standing []History of frequent UTIs-denied CENTRAL SENSITIZATION [x]Pain-chronic back pain d/t multiple injuries, neuropathy, sores on feet, joint pain []Fatigue- I have energy but I don't have toes, half a foot, so it's hard for me to do things [x]Sleep difficulties-typically falls asleep around 10:30-11pm, but frequent nighttime awakenings and difficulty going back to sleep. GI symptoms do not necessarily interfere with sleep but other bodily pain can interfere with sleep. Sleep quality is described as poor. Notes that his mattress qual (more content not included)... Normal [facility] Office Visit ([facility] ) MORE KINGSLEY JR. ([id number]) 1965 M Date Time Provider Department 04/10/25 8:00 AM ART FIGUEREDO [facility] During your visit today, we recorded the following information about you: Pulse Blood pressure Weight Height 101/minute 149/84 115 kg 1.778 m Art Figueredo DO 04/10/2025 10:51 AM Signed GASTROPARESIS CONSULT Patient is referred by Dr. Tracy Yoon for an opinion regarding GP and my final recommendations will be communicated back to the requesting physician by way of a copy of today's office notes. PRESENTING COMPLAINT AND HISTORY More is a 59 yr old male w/hx of Diabetes 2, GERD, and gastritis that had an abnormal gastric emptying study showing 05/2024 showing 21% retention at 4 hours. Diabetes 2, diagnosed about 20 years ago, Hgb A1c - unsure and Denies neuropathy. Eats 2 meals per day. Has nausea/vomiting but no antiemetics. Has not been on prokinetics. Denies constipation or diarrhea - has an average of 1 bowel movement per day. Denies abdominal pain and states weight has been stable. Patient is interested in learning more about EMPTIES Trial: Yes Patient is a candidate for EMPTIES Trial: Yes Gastrointestinal Symptoms Reflux/heartburn: Yes GERD - takes pantoprazole Abdominal pain/discomfort: No Weight loss: stable Do you have less than 3 bowel movements per week? No Diarrhea: No Constipation: average bm is once per day. Malnutrition: No Gastroparesis Cardinal Symptom Index (CGSI) 1. Nausea: 3 2. Retchin 3. Vomitin 4. Stomach fullness: 0 5. Not able to finish a normal-sized meal: 0 6. Feeling excessively full after meals: 3 7. Loss of appetite: 0 8. Bloating (feeling like you need to loosen your clothes): 3 9. Stomach or belly visibly larger: 4 CGSI Score: 2.03 Scale (0-none; 1-very mild; 2-mild; 3-moderate; 4-severe; 5-very severe) MEDICATION HISTORY Promotility Drugs - Reglan (Metoclopramide): No - Gimoti (Metoclopramide nasal): No - Motilium (Domperidone): No - Erythromycin (E-mycin): No - Propulsid (Cisapride)_: No Other - Tricyclic Antidepressants (nortriptyline - Pamelor; amitriptyline - Elavil): No - Buspirone (Buspar): No - Mirtazapin (Remeron): No Anti-Nausea Medications - Compazine (Prochlorperazine): No - Phenergan (Promethazine): No - Benadryl (Diphenhydramine): No - Zofran (Ondansetron): No - Scopace (Scopolamine Patch): No - Granisetron (Kytril or Sancuso): No - Tigan (Trimethobenzamide)_: No GLP-1 Receptor Agonists (for Diabetes or Weight loss): No Constipation Medications - Bulking Agents (Metamucil,Citrucel, Fibercon): No - Osmotic Laxatives (MOM, Polyethylene glycol (PEG), lactulose, sorbitol,MiraLax, Chronulal, Cephulac,Xylitol): No - Stimulant Laxatives (Ex-Lax, Senokot,Correctol, Dulcolax): No - Stool Softeners (Colace): No - Chloride Channel Activator (Amitiza): No - Linzess: No - Trulance: No - Motegrity: No - Ibsrella: No Pain Medications - Does the patient see a paint coating machine operator for chronic pain?No - Is the patient taking narcotic pain medication for chronic abdominal pain? No - Narcotic Medications: (Tramadol, Fentanyl, codeine, hydrocodone, Hydromorphone, methadone, morphine, Oxycodone) No Drug use - History or current drug use (Marijuana, Cocaine, Heroine, etc...) No Eating Disorders - Does the patient have a history of eating disorders No Psychiatric Disorders - Does the patient have a history of psychiatric disorders including PTSD: No Nutrition - Has the patient met with a marketing consultant for diet recommendations with Gastroparesis? No - Jejunostomy (J-tube): _No - Gastrostomy (G-tube): No - Gastro-Jejunostomy (GJ-tube): _No - Nasojejunal (NJ-tube): _No - Nasogastric (NG-tube): _No - TPN (IV): _No - IV home hydration (IV): _No Medical Records - Has the patient had a smart capsule study completed? No - Does the patient have a history of any foregut surgery (vagotomy, hiatal hernia repair/RAMESH Fundoplication, Heller Myotomy, gastrectomy, gastric bypass)?No If surgery, recent UGI? No - EGD: Yes - Botox Injections: No Patient Name More Kingsley Jr. Age [age] year old Gastroparesis Consult Test Date Completed Results Labs EGD 02/03/2024 Impression: Gastritis, gastric biopsies were negative for H. Pylori, duodenal biopsies were negative for celiac disease. Gastric Emptying Study 06/12/2024 Findings: Retention: - 30 min 86% - 1 hour 81% - 2 hours 52% - 3 hours 32% - 4 hours 21% Impression: Evidence of gastroparesis Gastric Emptying Study 11/13/2020 Impression Delayed gastric emptying. FINDINGS: There is delayed emptying of the gastric contents into the intestine. Residual gastric activity is calculated as follows: 1 HOUR: 78% (normal range = 30-90%). 2 HOURS: 59% (normal range = 0-60%). (more content not included)... Normal [facility] CNPN Telephone (arviem AGSSP) MORE KINGSLEY Frankie ([id number]) 1965 M LV Date Time Provider Department 04/10/25 JEROME DEL TORO [facility] During your visit today, we recorded the following information about you: Tamara Goncalves RN 04/10/2025 10:58 AM Addendum Patient scheduled for G-POEM 04/25/2025. Postop in 4 weeks to be scheduled by GP team. Aware of need for [facility] PACC. Pre and post G-POEM instructions discussed in detail with written copy provided. Discussed meds and pended. No other questions/concerns at this time. Magi Benjamin 04/13/2025 10:42 AM Signed Patient is scheduled for post op with Dr. Del Toro. Patient has questions regarding day of procedure. Please call patient to verify date. Tamara Goncalves RN 04/13/2025 10:54 AM Signed Called the patient and left a message on the identified voicemail requesting a return call. Call-back number was provided. Tamara Goncalves RN 04/17/2025 2:16 PM Signed Second call attempt. Called patient - message on identified voice mail. Procedure date scheduled on 04/25/2025. Request call back with any additional questions. Tamara Goncalves RN 04/17/2025 2:31 PM Signed Patient calling back. He stated that someone from [facility] called him to tell him that his POP procedure has been denied. Patient did not get a denial letter from his insurance. Patient instructed to call Lauren IRAHETA for direction. This RN cannot appeal without a formal letter of denial from Pre Access team. Tamara Goncalves RN 04/25/2025 8:40 AM Addendum Patient was a no show for his procedure. GP team, please cancel his follow up appt. Called patient - message on identified voice mail to return call should he wish to reschedule his procedure. Magi Benjamin 04/25/2025 10:09 AM Signed Post op cancelled Allergies As of Date: 04/10/2025 Noted Allergy Reaction VENOM-HONEY BEE 11/05/2020 10 - Anaphylaxis 14 - Other: See Comments 7 - Swelling Comments: Local swelling Date Reviewed: 04/10/2025 Reviewed by: Art Figueredo, - Fully Assessed Reason for Visit: Care Coordination [4651] Cmt: Schedule procedure and follow up appt Primary Visit Diagnosis:Diabetic gastroparesis (HCC) [E11.43, K31.84] Order(s):EGD - THERAPEUTIC, EUS, OR TUBE INTERVENTIONS [GI2] Order #: [id number] FUTURE sucralfate (CARAFATE) 1 gram tabletTake 1 tablet by mouth two times a day. Start taking medication after procedure for 4 weeks.Disp: 60 tabletRfl: [address] (PROTONIX) 40 mg tabletTake 1 tablet by mouth two times a day. Start taking medication after procedure for 4 weeks.Disp: 60 tabletRfl: 0 Prescriptions as of 04/25/2025 - lisinopril (ZESTRIL) 10 mg tablet Take 10 mg by mouth. - famotidine (PEPCID) 40 mg tablet Take 40 mg by mouth. - atorvastatin (LIPITOR) 40 mg tablet Take 40 mg by mouth. - hydroCHLOROthiazide 12.5 mg tablet Take 12.5 mg by mouth. - pantoprazole DR (PROTONIX) 40 mg tablet Take 40 mg by mouth. - insulin regular, human (NOVOLIN R INJECTION) by INJECTION(UNSPECIFIED PARENTERAL ROUTES) route. - metoclopramide HCl (GIMOTI) 15 mg/spray nasal spray Use 1 spray in the nose four times daily. - sucralfate (CARAFATE) 1 gram tablet Take 1 tablet by mouth two times a day. Start taking medication after procedure for 4 weeks. - pantoprazole DR (PROTONIX) 40 mg tablet Take 1 tablet by mouth two times a day. Start taking medication after procedure for 4 weeks. Problem List As Of Date: 04/10/2025 (None) Prescriptions ordered this encounter Disp Refills Start End SUCRALFATE 1 GRAM TABLET 60 t* 0 04/10/2025 05/10/2025 Route: PO Sig: Take 1 tablet by mouth two times a day. Start taking medication after procedure for 4 weeks. PANTOPRAZOLE 40 MG TABLET,DELAYED RE* 60 t* 0 04/10/2025 05/10/2025 Route: PO Sig: Take 1 tablet by mouth two times a day. Start taking medication after procedure for 4 weeks. Encounter Status:Closed by JEROME DEL TORO on 04/10/25 Normal [facility] CRP SerPl-mCncon 04-10-2025 CRP [Mass/Vol] 2.7 mg/dL High <0.9 [facility] Comment on above: Order Comment: Irving carver Type: BLOOD SPECIMEN Ordering Facility: [facility] Address: [address] [place] [address] Performed By: #### 1 988-5, 2157-6 #### [facility] CLIA [id number] [address] [place] [address] [place] ESR Westergren method (Bld) [Velocity]on 04-10-2025 ESR (Bld) [Velocity] 66 mm/h High 0-15 [facility] Comment on above: Order Comment: Irving carver Type: BLOOD SPECIMEN Ordering Facility: [facility] Address: [address] [place] [address] Performed By: #### L ACPYR #### [facility] CLIA [id number] [address] [place] [address] [place] GAD65 Ab Ser-aCncon 04-10-20 25 Glutamate decarboxylase 65 Ab Qn (S) <5.0 Normal <=5.0 [facility] Comment on above: Order Comment: Irving carver Type: BLOOD SPECIMEN Ordering Facility: [facility] Address: [address] [place] [address] Result Comment: Anti -glutamic acid decarboxylase antibody (GAD65) test usually in conjunction with [...] nervous system diseases. Clinical correlation is required. Performed By: #### L ACPYR #### [facility] CLIA [id number] [address] [place] [address] [place] Glutamate decarboxylase 65 A b Qn (S)on 04-10-2025 GLUTAMIC ACID DECARBOXYLAS AB QUALITATIVE Negative Normal Negative [facility] Comment on above: Order Comment: Irving carver Type: BLOOD SPECIMEN Ordering Facility: [facility] Address: [address] [place] [address] Performed By: #### L ACPYR #### [facility] CLIA [id number] [address] [place] [address] [place] HbA1c (Bld)on 04-10-2025 Average glucose Estimated from glycated hemoglobin (Bld) [Mass/Vol] 269 mg/dL Normal [facility] Comment on above: Order Comment: Irving carver Type: BLOOD SPECIMEN Ordering Facility: [facility] Address: [address] [place] [address] Result Comment: eAG: (Estimated average glucose) is a calculated value from HgbA1c and is manufacturer representative of the average blood glucose level in the last 2-3 month period. Performed By: #### 5 5454-3 #### [facility] CLIA [id number] [address] [place] [address] [place] HbA1c (Bld) [Mass fraction] 11.0 % High 4.3-5.6 [facility] Comment on above: Order Comment: Irving carver Type: BLOOD SPECIMEN Ordering Facility: [facility] Address: [address] [place] [address] Result Comment: Alexys [place] Diabetes Association guidelines indicate that patients with HgbA1c in the range 5.7-6.4% are at increased risk for development of diabetes, and intervention by lifestyle modification may be beneficial. HgbA1c greater or equal to 6.5% is considered diagnostic of diabetes. Performed By: #### 5 5454-3 #### [facility] CLIA [id number] [address] [place] [address] [place] IgA SerPl-mCncon 04-10-2025 IgA [Mass/Vol] 608 mg/dL High 70-400 [facility] Comment on above: Order Comment: Irving carver Type: BLOOD SPECIMEN Ordering Facility: [facility] Address: [address] [place] [address] Performed By: #### 2 465-3, 2458-8, 2472-9 #### [facility] CLIA [id number] [address] [place] [address] [place] IgG SerPl-mCncon 04-10-2025 IgG [Mass/Vol] 3158 mg/dL High 700-1600 [facility] Comment on above: Order Comment: Irving carver Type: BLOOD SPECIMEN Ordering Facility: [facility] Address: [address] [place] [address] Performed By: #### L ACPYR #### [facility] CLIA [id number] [address] [place] [address] [place] IgM SerPl-mCncon 04-10-2025 IgM [Mass/Vol] 110 mg/dL Normal 40-230 [facility] Comment on above: Order Comment: Irving carver Type: BLOOD SPECIMEN Ordering Facility: [facility] Address: [address] [place] [address] Performed By: #### L ACPYR #### [facility] CLIA [id number] [address] [place] [address] [place] LDH SerPl-cCncon 04-10-2025 LDH [Catalytic activity/Vol] 159 U/L Normal 135-225 [facility] Comment on above: Order Comment: Speci men Type: BLOOD SPECIMEN Ordering Facility: [facility] Address: [address] [place] [address] Performed By: #### L ACPYR #### [facility] CLIA [id number] [address] [place] [address] [place] ORGANIC ACIDS UR, QUANT W/CO NSULTon 04-10-2025 2-Hydroxyglutarate/Cr eatinine (U) [Molar ratio] <0.4 Low 0.6-17.7 [facility] Comment on above: Order Comment: Speci men Type: URINE SPECIMEN Ordering Facility: [facility] Address: [address] [place] [address] Performed By: #### L [id number] #### [facility] IA [id number] [address] [place] [address] [place] 2-Hydroxyisovalerate/ Creatinine (U) [Molar ratio] 0.1 umol/mmolCr Normal 0.0-0.1 [facility] Comment on above: Order Comment: Speci men Type: URINE SPECIMEN Ordering Facility: [facility] Address: [address] [place] [address] Performed By: #### L [id number] #### [facility] CLIA [id number] [address] [place] [address] [place] 1-Ycteey-8-hydroxybut yrate (C5-OH)/Creatinine (U) [Molar ratio] <0.6 Normal 0.0-1.3 [facility] Comment on above: Order Comment: Speci men Type: URINE SPECIMEN Ordering Facility: [facility] Address: [address] [place] [address] Performed By: #### L [id number] #### [facility] CLIA [id number] [address] [place] [address] [place] 2-Methylbutyrylglycin e/Creatinine (U) [Molar ratio] <0.1 Normal 0.0-0.4 [facility] Comment on above: Order Comment: Speci men Type: URINE SPECIMEN Ordering Facility: [facility] Address: [address] [place] [address] Performed By: #### L [id number] #### [facility] CLIA [id number] [address] [place] [address] [place] 2-Methylcitrate/Creat inine (U) [Molar ratio] <1.1 Normal 1.0-13.9 [facility] Comment on above: Order Comment: Speci men Type: URINE SPECIMEN Ordering Facility: [facility] Address: [address] [place] [address] Performed By: #### L [id number] #### [facility] CLIA [id number] [address] [place] [address] [place] 2-Oxoadipate/Creatini ne (U) [Molar ratio] <1.6 Normal 0.0-3.3 [facility] Comment on above: Order Comment: Speci men Type: URINE SPECIMEN Ordering Facility: [facility] Address: [address] [place] [address] Performed By: #### L [id number] #### [facility] CLIA [id number] [address] [place] [address] [place] 3-Hydroxyglutarate/Cr eatinine (U) [Molar ratio] 0.0 umol/mmolCr Normal 0.0-0.7 [facility] Comment on above: Order Comment: Speci men Type: URINE SPECIMEN Ordering Facility: [facility] Address: [address] [place] [address] Performed By: #### L [id number] #### [facility] CLIA [id number] [address] [place] [address] [place] 3-Hydroxyisovalerate/ Creatinine (U) [Molar ratio] 2.9 umol/mmolCr Normal 2.1-27.3 [facility] Comment on above: Order Comment: Speci men Type: URINE SPECIMEN Ordering Facility: [facility] Address: [address] [place] [address] Performed By: #### L [id number] #### [facility] CLIA [id number] [address] [place] [address] [place] 3-Methylcrotonylglyci ne/Creatinine (U) [Molar ratio] <0.3 Normal <0.3 [facility] Comment on above: Order Comment: Speci men Type: URINE SPECIMEN Ordering Facility: [facility] Address: [address] [place] [address] Performed By: #### L [id number] #### [facility] CLIA [id number] [address] [place] [address] [place] 3-Methylglutaconate/C reatinine (U) [Molar ratio] 0.3 umol/mmolCr Normal 0.0-2.0 [facility] Comment on above: Order Comment: Speci men Type: URINE SPECIMEN Ordering Facility: [facility] Address: [address] [place] [address] Performed By: #### L [id number] #### [facility] CLIA [id number] [address] [place] [address] [place] 3-Methylglutarate/Cre atinine (U) [Molar ratio] 0.2 umol/mmolCr Normal 0.0-0.6 [facility] Comment on above: Order Comment: Speci men Type: URINE SPECIMEN Ordering Facility: [facility] Address: [address] [place] [address] Performed By: #### L [id number] #### [facility] CLIA [id number] [address] [place] [address] [place] 4-Hydroxyphenylacetat e/Creatinine (U) [Molar ratio] 10.8 umol/mmolCr Normal 5.7-147.5 [facility] Comment on above: Order Comment: Speci men Type: URINE SPECIMEN Ordering Facility: [facility] Address: [address] [place] [address] Performed By: #### L [id number] #### [facility] CLIA [id number] [address] [place] [address] [place] 4-Hydroxyphenyllactat e/Creatinine (U) [Molar ratio] 20.8 umol/mmolCr Normal 1.3-23.0 [facility] Comment on above: Order Comment: Speci men Type: URINE SPECIMEN Ordering Facility: [facility] Address: [address] [place] [address] Performed By: #### L [id number] #### [facility] CLIA [id number] [address] [place] [address] [place] 4-Hydroxyphenylpyruva te/Creatinine (U) [Molar ratio] 0.0 umol/mmolCr Normal <=0.0 [facility] Comment on above: Order Comment: Speci men Type: URINE SPECIMEN Ordering Facility: [facility] Address: [address] [place] [address] Performed By: #### L [id number] #### [facility] CLIA [id number] [address] [place] [address] [place] 5-Oxoproline/Creatini ne (U) [Molar ratio] 1.5 umol/mmolCr Normal 0.4-3.1 [facility] Comment on above: Order Comment: Speci men Type: URINE SPECIMEN Ordering Facility: [facility] Address: [address] [place] [address] Performed By: #### L [id number] #### [facility] CLIA [id number] [address] [place] [address] [place] Acetoacetate/Creatini ne (U) [Molar ratio] <0.9 High 0.0-0.5 [facility] Comment on above: Order Comment: Speci men Type: URINE SPECIMEN Ordering Facility: [facility] Address: [address] [place] [address] Performed By: #### L [id number] #### [facility] CLIA [id number] [address] [place] [address] [place] Aconitate/Creatinine (U) [Molar ratio] 19.3 umol/mmolCr Normal 8.5-109.6 [facility] Comment on above: Order Comment: Speci men Type: URINE SPECIMEN Ordering Facility: [facility] Address: [address] [place] [address] Performed By: #### L [id number] #### [facility] CLIA [id number] [address] [place] [address] [place] Adipate/Creatinine (U) [Molar ratio] 1.3 umol/mmolCr Normal 0.3-9.2 [facility] Comment on above: Order Comment: Speci men Type: URINE SPECIMEN Ordering Facility: [facility] Address: [address] [place] [address] Performed By: #### L [id number] #### [facility] CLIA [id number] [address] [place] [address] [place] Alpha hydroxybutyrate/Creat inine (U) [Molar ratio] 1.0 umol/mmolCr Normal 0.0-2.7 [facility] Comment on above: Order Comment: Speci men Type: URINE SPECIMEN Ordering Facility: [facility] Address: [address] [place] [address] Performed By: #### L [id number] #### [facility] CLIA [id number] [address] [place] [address] [place] Alpha ketoglutarate/Creatin ine (U) [Molar ratio] 6.2 umol/mmolCr Normal 0.2-42.7 [facility] Comment on above: Order Comment: Speci men Type: URINE SPECIMEN Ordering Facility: [facility] Address: [address] [place] [address] Performed By: #### L [id number] #### [facility] CLIA [id number] [address] [place] [address] [place] Benzoate/Creatinine (U) [Molar ratio] <12.2 Normal 0.0-14.6 [facility] Comment on above: Order Comment: Speci men Type: URINE SPECIMEN Ordering Facility: [facility] Address: [address] [place] [address] Performed By: #### L [id number] #### [facility] CLIA [id number] [address] [place] [address] [place] Beta hydroxybutyrate/Creat inine (U) [Molar ratio] <1.6 Normal 0.1-2.6 [facility] Comment on above: Order Comment: Speci men Type: URINE SPECIMEN Ordering Facility: [facility] Address: [address] [place] [address] Performed By: #### L [id number] #### [facility] CLIA [id number] [address] [place] [address] [place] Butyrylglycine/Creati nine (U) [Molar ratio] 0.0 umol/mmolCr Normal 0.0-0.7 [facility] Comment on above: Order Comment: Speci men Type: URINE SPECIMEN Ordering Facility: [facility] Address: [address] [place] [address] Performed By: #### L [id number] #### [facility] CLIA [id number] [address] [place] [address] [place] Creatinine (U) [Mass/Vol] 275.7 mg/dL Normal 46.8-314.5 [facility] Comment on above: Order Comment: Speci men Type: URINE SPECIMEN Ordering Facility: [facility] Address: [address] [place] [address] Performed By: #### L [id number] #### [facility] CLIA [id number] [address] [place] [address] [place] Ethylmalonate/Creatin ine (U) [Molar ratio] 2.7 umol/mmolCr Normal 0.5-6.2 [facility] Comment on above: Order Comment: Speci men Type: URINE SPECIMEN Ordering Facility: [facility] Address: [address] [place] [address] Performed By: #### L [id number] #### [facility] CLIA [id number] [address] [place] [address] [place] Fumarate/Creatinine (U) [Molar ratio] 1.9 umol/mmolCr Normal 0.3-2.6 [facility] Comment on above: Order Comment: Speci men Type: URINE SPECIMEN Ordering Facility: [facility] Address: [address] [place] [address] Performed By: #### L [id number] #### [facility] CLIA [id number] [address] [place] [address] [place] Glutarate/Creatinine (U) [Molar ratio] 0.1 umol/mmolCr Normal 0.0-1.4 [facility] Comment on above: Order Comment: Speci men Type: URINE SPECIMEN Ordering Facility: [facility] Address: [address] [place] [address] Performed By: #### L [id number] #### [facility] CLIA [id number] [address] [place] [address] [place] Hexanoylglycine/Creat inine (U) [Molar ratio] <0.1 Normal 0.0-0.1 [facility] Comment on above: Order Comment: Speci men Type: URINE SPECIMEN Ordering Facility: [facility] Address: [address] [place] [address] Performed By: #### L [id number] #### [facility] CLIA [id number] [address] [place] [address] [place] Isobutyrylglycine/Cre atinine (U) [Molar ratio] <0.1 Normal 0.0-1.2 [facility] Comment on above: Order Comment: Speci men Type: URINE SPECIMEN Ordering Facility: [facility] Address: [address] [place] [address] Performed By: #### L [id number] #### [facility] CLIA [id number] [address] [place] [address] [place] Isocitrate/Creatinine (U) [Molar ratio] 62.1 umol/mmolCr Normal 9.1-271.9 [facility] Comment on above: Order Comment: Speci men Type: URINE SPECIMEN Ordering Facility: [facility] Address: [address] [place] [address] Performed By: #### L [id number] #### [facility] CLIA [id number] [address] [place] [address] [place] Lactate/Creatinine (U) [Molar ratio] 23.5 umol/mmolCr Normal 2.9-47.2 [facility] Comment on above: Order Comment: Speci men Type: URINE SPECIMEN Ordering Facility: [facility] Address: [address] [place] [address] Performed By: #### L [id number] #### [facility] CLIA [id number] [address] [place] [address] [place] Malate/Creatinine (U) [Molar ratio] 0.8 umol/mmolCr Normal 0.0-1.1 [facility] Comment on above: Order Comment: Speci men Type: URINE SPECIMEN Ordering Facility: [facility] Address: [address] [place] [address] Performed By: #### L [id number] #### [facility] CLIA [id number] [address] [place] [address] [place] Malonate/Creatinine (U) [Molar ratio] 0.0 umol/mmolCr Normal 0.0-0.1 [facility] Comment on above: Order Comment: Speci men Type: URINE SPECIMEN Ordering Facility: [facility] Address: [address] [place] [address] Performed By: #### L [id number] #### [facility] CLIA [id number] [address] [place] [address] [place] Methylmalonate/Creati nine (U) [Molar ratio] <0.4 Normal 0.0-0.6 [facility] Comment on above: Order Comment: Speci men Type: URINE SPECIMEN Ordering Facility: [facility] Address: [address] [place] [address] Performed By: #### L [id number] #### [facility] CLIA [id number] [address] [place] [address] [place] Methylsuccinate/Creat inine (U) [Molar ratio] 0.4 umol/mmolCr Normal 0.0-1.4 [facility] Comment on above: Order Comment: Speci men Type: URINE SPECIMEN Ordering Facility: [facility] Address: [address] [place] [address] Performed By: #### L [id number] #### [facility] CLIA [id number] [address] [place] [address] [place] N-acetylaspartate/Cre atinine (U) [Molar ratio] 0.8 umol/mmolCr Normal 0.1-8.9 [facility] Comment on above: Order Comment: Speci men Type: URINE SPECIMEN Ordering Facility: [facility] Address: [address] [place] [address] Performed By: #### L [id number] #### [facility] CLIA [id number] [address] [place] [address] [place] N-acetyltyrosine/Crea tinine (U) [Molar ratio] 0.3 umol/mmolCr Normal 0.0-1.2 [facility] Comment on above: Order Comment: Speci men Type: URINE SPECIMEN Ordering Facility: [facility] Address: [address] [place] [address] Performed By: #### L [id number] #### [facility] CLIA [id number] [address] [place] [address] [place] Oxalate/Creatinine (U) [Molar ratio] 1.7 umol/mmolCr Normal 0.7-12.4 [facility] Comment on above: Order Comment: Speci men Type: URINE SPECIMEN Ordering Facility: [facility] Address: [address] [place] [address] Performed By: #### L [id number] #### [facility] CLIA [id number] [address] [place] [address] [place] Pyruvate/Creatinine (U) [Molar ratio] 0.6 umol/mmolCr Normal 0.1-2.6 [facility] Comment on above: Order Comment: Speci men Type: URINE SPECIMEN Ordering Facility: [facility] Address: [address] [place] [address] Performed By: #### L [id number] #### [facility] CLIA [id number] [address] [place] [address] [place] Sebacate (C8)/Creatinine (U) [Molar ratio] <3.4 High 0.0-0.3 [facility] Comment on above: Order Comment: Speci men Type: URINE SPECIMEN Ordering Facility: [facility] Address: [address] [place] [address] Performed By: #### L [id number] #### [facility] CLIA [id number] [address] [place] [address] [place] Suberate/Creatinine (U) [Molar ratio] 0.9 umol/mmolCr Normal 0.0-7.4 [facility] Comment on above: Order Comment: Speci men Type: URINE SPECIMEN Ordering Facility: [facility] Address: [address] [place] [address] Performed By: #### L [id number] #### [facility] CLIA [id number] [address] [place] [address] [place] Suberylglycine/Creati nine (U) [Molar ratio] 0.0 umol/mmolCr Normal <=0.0 [facility] Comment on above: Order Comment: Speci men Type: URINE SPECIMEN Ordering Facility: [facility] Address: [address] [place] [address] Performed By: #### L [id number] #### [facility] CLIA [id number] [address] [place] [address] [place] Succinate/Creatinine (U) [Molar ratio] 0.7 umol/mmolCr Normal 0.3-27.4 [facility] Comment on above: Order Comment: Speci men Type: URINE SPECIMEN Ordering Facility: [facility] Address: [address] [place] [address] Performed By: #### L [id number] #### [facility] CLIA [id number] [address] [place] [address] [place] Succinylacetone/Creat inine (U) [Molar ratio] <0.4 Normal <0.4 [facility] Comment on above: Order Comment: Speci men Type: URINE SPECIMEN Ordering Facility: [facility] Address: [address] [place] [address] Performed By: #### L [id number] #### [facility] CLIA [id number] [address] [place] [address] [place] UOA CONSULTATION Normal [facility] Comment on above: Order Comment: Speci men Type: URINE SPECIMEN Ordering Facility: [facility] Address: [address] [place] [address] Result Comment: This urine organic acid analysis shows [...] and its performance characteristics determined by the [facility]. It has not been cleared or approved by the [place] Food and Drug Administration. The FDA had determined that such clearance or approval is not necessary. Performed By: #### L [id number] #### [facility] CLIA [id number] [address] [place] [address] [place] UOA REVIEW Reviewed by Forrest Gomez MD, Ph.D ([id number]) Normal [facility] Comment on above: Order Comment: Speci men Type: URINE SPECIMEN Ordering Facility: [facility] Address: [address] [place] [address] Performed By: #### L [id number] #### [facility] CLIA [id number] [address] [place] [address] [place] Uracil/Creatinine (U) [Molar ratio] <0.4 Normal 0.0-5.1 [facility] Comment on above: Order Comment: Speci men Type: URINE SPECIMEN Ordering Facility: [facility] Address: [address] [place] [address] Performed By: #### L [id number] #### [facility] CLIA [id number] [address] [place] [address] [place] PYRUVATE+LACTATE BLon 2024 Lactate [Moles/Vol] 2.1 mmol/L Normal 0.5-2.2 [facility] Comment on above: Order Comment: Speci men Type: BLOOD SPECIMEN Ordering Facility: [facility] Address: [address] [place] [address] Result Comment: This test was developed, and its performance characteristics determined by the [facility] Department of Pathology and Laboratory Medicine. It has not been cleared or approved by the FDA. The [facility] Department of Pathology and Laboratory Medicine is regulated under CLIA as qualified to perform high-complexity testing. This test is used for clinical purposes. It should not be regarded as investigational or for research. Performed By: #### L ACPYR #### [facility] CLIA [id number] [address] [place] [address] [place] Pyruvate (Bld) [Moles/Vol] 0.05 mmol/L Normal 0.03-0.10 [facility] Comment on above: Order Comment: Speci men Type: BLOOD SPECIMEN Ordering Facility: [facility] Address: [address] [place] [address] Result Comment: This test was developed, and its performance characteristics determined by the [facility] Department of Pathology and Laboratory Medicine. It has not been cleared or approved by the FDA. The [facility] Department of Pathology and Laboratory Medicine is regulated under CLIA as qualified to perform high-complexity testing. This test is used for clinical purposes. It should not be regarded as investigational or for research. Performed By: #### L ACPYR #### [facility] CLIA [id number] [address] [place] [address] [place] VOLTAGE GATED CA IGGon 04-10 P/Q-TYPE CALCIUM CHANNEL ANTIBODY 0.0 pmol/L Normal 0.0-24.5 [facility] Comment on above: Order Comment: Gloriai wen Type: BLOOD SPECIMEN Ordering Facility: [facility] Address: [address] [place] [address] Result Comment: INTE RPRETIVE INFORMATION: P/Q-Type Calcium Channel Antibody 0.0 to 24.5 pmol/L ............. Negative 24.6 to 45.6 pmol/L ............ Indeterminate 45.7 pmol/L or greater.......... Positive This test was developed and its performance characteristics determined by [employer]. It has not been cleared or approved by the [place] Food and Drug Administration. This test was performed in a CLIA certified laboratory and is intended for clinical purposes. Performed By: [employer] [address] [place] [address] Looping Machine Operator: Warren Simmons MD, PhD CLIA Number: [id number] Performed By: #### L ACPYR #### [facility] CLIA [id number] [address] [place] [address] [place] VOLTAGE-GATED POTASSIUM SZYMANSKI ABon 04-10-2025 VOLTAGE-GATED POTASSIUM CHANNEL AB, SER 0 pmol/L Normal 0-31 [facility] Comment on above: Order Comment: Speci men Type: BLOOD SPECIMEN Ordering Facility: [facility] Address: [address] [place] [address] Result Comment: INTE RPRETIVE INFORMATION: Voltage-Gated Potassium Channel (VGKC) Antibody, Serum [...] developed and its performance characteristics determined by [employer]. It has not been cleared or approved by the US Food and Drug Administration. This test was performed in a CLIA certified laboratory and is intended for clinical purposes. Performed By: [employer] [address] [place] [address] Looping Machine Operator: Warren Simmons MD, PhD CLIA Number: [id number] Performed By: #### V GKCAB #### [facility] CLIA [id number] [address] [place], [place] [id number] [facility] 04-05-2025 CNPN Telephone (GASTSP) MORE KINGSLEY JR. ([id number]) 1965 M Date Time Provider Department 04/05/25 [facility] During your visit today, we recorded the following information about you: Shena Stockton RN 04/05/2025 3:14 PM Signed SPECIALTY CARE COORDINATION CHART REVIEW Contacted patient regarding upcoming appointment in the [facility]. No answer. Message and call back number provided. Patient identified for Care Coordination from: gastroparesis diagnosis Last PCP office visit: Visit date not found Next OV: 04/10/2025 CHRONIC DX: gastroparesis CARE COORDINATION OUTREACH PLAN: New patient call; awaiting call back Shena Stockton RN April 05, 2025 Allergies As of Date: 04/05/2025 Noted Allergy Reaction VENOM-HONEY BEE 11/05/2020 10 - Anaphylaxis 14 - Other: See Comments 7 - Swelling Comments: Local swelling Date Reviewed: 10/24/2024 Reviewed by: uLdwin Brooks MA - Fully Assessed Reason for Visit: Care Coordination [4984] Cmt: Gastroparesis clinic: chart review; new patient call Problem List As Of Date: 04/05/2025 (None) Encounter Status:Closed by SHENA STOCKTON on 04/05/25 Normal [facility] Debridementon 03-28-2025 SCOTT Vaughn 03/28/2025 4:19 PM Debridement Performed by: SCOTT Vaughn Authorized by: SCOTT Vaughn Consent: Consent obtained: Verbal and written Consent given by: Patient Risks discussed: Yes Debridement Details: Performed by: DRYING ROOM ATTENDANT Type: Sharp Level: Subcutaneous Tissue, Devitalized tissue and other material debrided: Callus and subcutaneous tissue Anesthesia administration: topical Anesthesia: EMLA Total Surface Area Debrided cm^2: 10.37 Specimen Taken: None Instrument: Curette Amount of bleeding: Medium Bleeding Control: Pressure Response to treatment: Procedure was tolerated well Tissue Applied?: No MANUALLY TRANSCRIBED RESULTS [facility] CBC AND AUTO DIFFon 03-04-20 25 ABSOLUTE BASOPHIL 0.2 X10E9/L Normal 0.0-0.2 [facility] Comment on above: Performed By: #### C MELANIA, CMP #### [facility] ([id number]) [address] [place] [address] ABSOLUTE NEUTROPHIL 6.0 X10E9/L Normal 1.5-6.6 [facility] Comment on above: Performed By: #### C MELANIA, CMP #### [facility] ([id number]) [address] [place] [address] 19809 Basophils/100 WBC (Bld) 2.4 % Normal [facility] Comment on above: Performed By: #### C MELANIA, CMP #### [facility] ([id number]) [address] [place] [address]996 Eosinophils (Bld) [#/Vol] 0.3 10*3/uL Normal 0.0-0.4 [facility] Comment on above: Performed By: #### C MELANIA, CMP #### [facility] ([id number]) [address] [place] [address]39 Eosinophils/100 WBC (Bld) 3.4 % Normal [facility] Comment on above: Performed By: #### C MELANIA, CMP #### [facility] ([id number]) [address] [place] [address] 96183 Erythrocyte distribution width (RBC) [Ratio] 15.0 % Normal 11.5-15.0 [facility] Comment on above: Performed By: #### C BCA, CMP #### [facility] ([id number]) [address] [place] [address] 42150 Hematocrit (Bld) [Volume fraction] 40.0 % Normal 39-49 [facility] Comment on above: Performed By: #### C BCA, CMP #### [facility] ([id number]) [address] [place] [address] 62510 Hemoglobin (Bld) [Mass/Vol] 13.7 g/dL Normal 13.0-17.0 [facility] Comment on above: Performed By: #### C BCA, CMP #### [facility] ([id number]) [address] [place] [address] 47397 Lymphocytes (Bld) [#/Vol] 2.1 10*3/uL Normal 1.0-3.5 [facility] Comment on above: Performed By: #### C BCA, CMP #### [facility] ([id number]) [address] [place] [address] 38371 Lymphocytes/100 WBC (Bld) 21.1 % Normal [facility] Comment on above: Performed By: #### C BCA, CMP #### [facility] ([id number]) [address] [place] [address] 67596 MCH (RBC) [Entitic mass] 28.8 pg Normal 27-34 [facility] Comment on above: Performed By: #### C BCA, CMP #### [facility] ([id number]) [address] [place] [address] 75699 MCHC (RBC) [Mass/Vol] 34.3 g/dL Normal 32-36 [facility] Comment on above: Performed By: #### C BCA, CMP #### [facility] ([id number]) [address] [place] [address] 76177 MCV (RBC) [Entitic vol] 84 fL Normal 80-100 [facility] Comment on above: Performed By: #### C BCA, CMP #### [facility] ([id number]) [address] [place] [address] [place] [address] Monocytes (Bld) [#/Vol] 1.4 10*3/uL High 0-0.9 [facility] Comment on above: Performed By: #### C BCA, CMP #### [facility] ([id number]) [address] [place] [address] 10624 Monocytes/100 WBC (Bld) 13.4 % Normal [facility] Comment on above: Performed By: #### C BCA, CMP #### [facility] ([id number]) [address] [place] [address] 40294 Neutrophils/100 WBC (Bld) 59.7 % Normal [facility] Comment on above: Performed By: #### C MELANIA, CMP #### [facility] ([id number]) [address] [place] [address] 05793 Platelet mean volume (Bld) [Entitic vol] 8.1 fL Normal 7-12 [facility] Comment on above: Performed By: #### C MELANIA, CMP #### [facility] ([id number]) [address] [place] [address] 89433 Platelets (Bld) [#/Vol] 334 10*3/uL Normal 150-450 [facility] Comment on above: Performed By: #### C BCA, CMP #### [facility] ([id number]) [address] [place] [address] 26581 RBC COUNT 4.76 X10E12/L Normal 4.10-5.70 [facility] Comment on above: Performed By: #### C BCA, CMP #### [facility] ([id number]) [address] [place] [address] 70119 WBC (Bld) [#/Vol] 10.1 10*3/uL Normal 4.0-11.0 [facility] Comment on above: Performed By: #### C BCA, CMP #### [facility] ([id number]) [address] [place] [address] 56242 COMPREHENSIVE METABOLIC PANE Anuel 03-04-2025 Albumin [Mass/Vol] 2.9 g/dL Low 3.2-5.3 [facility] Comment on above: Performed By: #### C BCA, CMP #### [facility] ([id number]) [address] [place] [address] 82891 ALP [Catalytic activity/Vol] 95 U/L Normal 39-130 [facility] Comment on above: Performed By: #### C BCA, CMP #### [facility] ([id number]) [address] [place] [address] 56863 ALT [Catalytic activity/Vol] 15 U/L Normal 0-40 [facility] Comment on above: Performed By: #### C BCA, CMP #### [facility] ([id number]) [address] [place] [address] 73847 Anion gap [Moles/Vol] 7 mmol/L Normal 5-15 [facility] Comment on above: Performed By: #### C BCA, CMP #### [facility] ([id number]) [address] [place] [address] 99853 AST [Catalytic activity/Vol] 18 U/L Normal 0-41 [facility] Comment on above: Performed By: #### C BCA, CMP #### [facility] ([id number]) [address] [place] [address] 97080 Bilirubin [Mass/Vol] 0.9 mg/dL Normal 0.3-1.2 [facility] [facility] Comment on above: Performed By: #### C BCA, CMP #### [facility] ([id number]) [address] [place] [address] 20694 Calcium [Mass/Vol] 8.3 mg/dL Low 8.5-10.5 [facility] Comment on above: Performed By: #### C BCA, CMP #### [facility] ([id number]) [address] [place] [address] 41410 Chloride [Moles/Vol] 102 mmol/L Normal 98-109 [facility] Comment on above: Performed By: #### C BCA, CMP #### [facility] ([id number]) [address] [place] [address] 19170 CO2 [Moles/Vol] 23 mmol/L Normal 22-32 [facility] Comment on above: Performed By: #### C BCA, CMP #### [facility] ([id number]) [address] [place] [address] 44591 Creatinine [Mass/Vol] 1.20 mg/dL Normal 0.70-1.20 [facility] Comment on above: Result Comment: METH OD TRACEABLE TO IDMS STANDARD Performed By: #### C BCA, CMP #### [facility] ([id number]) [address] [place] [address] 47146 GFR/1.73 sq M.predicted among non-blacks MDRD (S/P/Bld) [Vol rate/Area] 70 mL/min/{1.73_m2} Normal >59 [facility] Comment on above: Result Comment: Reported eGFR is based on the CKD-EPI 2020 equation that does not use a race coefficient. Performed By: #### C BCA, CMP #### [facility] ([id number]) [address] [place] [address] 27642 Glucose [Mass/Vol] 213 mg/dL High 65-99 [facility] Comment on above: Performed By: #### C BCA, CMP #### [facility] ([id number]) [address] [place] [address] 34774 Potassium [Moles/Vol] 3.6 mmol/L Normal 3.5-5.0 [facility] Comment on above: Performed By: #### C BCA, CMP #### [facility] ([id number]) [address] [place] [address] 46646 Protein [Mass/Vol] 8.3 g/dL High 6.0-8.0 [facility] Comment on above: Performed By: #### C BCA, CMP #### [facility] ([id number]) [address] [place] [address] 25414 Sodium [Moles/Vol] 132 mmol/L Low 134-146 [facility] Comment on above: Performed By: #### C BCA, CMP #### [facility] ([id number]) [address] [place] [address] 14205 Urea nitrogen [Mass/Vol] 18 mg/dL Normal 5-23 [facility] Comment on above: Performed By: #### C BCA, CMP #### [facility] ([id number]) [address] [place] [address] 27377 Lactate (P damon) [Moles/Vol]o n 03-04-2025 LACTATE W/REFLEX 1.3 mmol/L Normal 0.4-2.0 [facility] Comment on above: Result Comment: Result did not trigger repeat Lactate, re-order if needed. Performed By: #### 3 [id number] #### [facility] ([id number]) [address] [place] [address] 03942 SUPERFICIAL WOUND CULTUREon 03-04-2025 Bacteria identified Aer cx Nom (Wound) GRAM STAIN 0 WHITE BLOOD CELLS/LPF 0 SQUAMOUS EPITHELIAL CELLS/LPF MANY GRAM POSITIVE COCCI IN CLUSTERS IN CHAINS CULTURE RESULTS MANY STREPTOCOCCUS AGALACTIAE (GROUP B) MANY STAPHYLOCOCCUS AUREUS METHICILLIN RESISTANT MANY STAPHYLOCOCCUS AUREUS METHICILLIN RESISTANT VARIANT [ S = SUSCEPTIBLE R = RESISTANT I = INTERMEDIATE S-DO = Susceptible-dose dependent NS = Non-suscceptible NO = No Interpretation ] Organism: STAPHYLOCOCCUS AUREUS Antibiotic Interpretation JEFFERY Status CEFAZOLIN R F CLINDAMYCIN S 0.25 F OXACILLIN R >=4 F TRIMETH/SULFAMETHOXAZO LE S <=.5/9.5 F VANCOMYCIN S 1 F DAPTOMYCIN S 0.5 F DOXYCYCLINE S 1 F [ S = SUSCEPTIBLE R = RESISTANT I = INTERMEDIATE S-DO = Susceptible-dose dependent NS = Non-suscceptible NO = No Interpretation ] Organism: STAPHYLOCOCCUS AUREUS Antibiotic Interpretation JEFFERY Status CEFAZOLIN R F CLINDAMYCIN S 0.25 F OXACILLIN R >=4 F TRIMETH/SULFAMETHOXAZO LE S <=.5/9.5 F VANCOMYCIN S 1 F DAPTOMYCIN S 0.25 F DOXYCYCLINE S <=0.5 F Susceptible [facility] Comment on above: Performed By: #### 6 32-0 #### [facility] ([id number]) [address] [place] [address] [address] [place] [address] XR FOOT RT MIN 3 VWSon 03-04 XR FOOT RT MIN 3 VWS XR FOOT RT MIN 3 VW S XR FOOT RT MIN 3 VWS CLINICAL [...] Du Hawthorne MD on 03/04/2025 10:59 AM Normal [facility] 11-21-2024 [facility] Telephone (GERALDO) MORE KINGSLEY JR. ([id number]) 1965 M Date Time Provider Department 11/21/24 DAVIDA PRICE During your visit today, we recorded the following information about you: Leonard Cadet 11/21/2024 3:[address] Yoon's office phones requesting office note from October 24 When completed, please fax to [phone] Davida Hawkins MD 11/24/2024 9:41 AM Signed Patient was not seen by me on that day due to miscommunication (I was out of the office that day). I'm happy to see him in consultation if not already scheduled. Thanks,. . Leonard Cadet 11/24/2024 11:[address] Yoon's office updated via fax Magi Gage 12/20/2024 7:[address] Yoon's office faxed documents to our office. Forwarding to your office for rescheduling. Magi Benjamin 12/20/2024 1:13 PM Signed The apts in January for Dr. Figueredo are open for [address] Figueredo is currently scheduling in February/March. I will call patient. Mali Linton 12/20/2024 1:52 PM Signed Patient states he is returning call Magi Benjamin 12/22/2024 1:51 PM Signed Patient is scheduled with GP Team/empties Allergies As of Date: 11/21/2024 Noted Allergy Reaction VENOM-HONEY BEE 11/05/2020 10 - Anaphylaxis 14 - Other: See Comments 7 - Swelling Comments: Local swelling Date Reviewed: 10/24/2024 Reviewed by: Ludwin Brooks MA - Fully Assessed Reason for Visit: Ct Scan Tech - Other [7482] Cmt: Dr Yoon's office/request for office note Problem List As Of Date: 11/21/2024 (None) Encounter Status:Closed by LEONARD CADET on 11/21/24 [facility] Coni 06-22-2024 CNPN Telephone ([facility]) MORE KINGSLEY JR. ([id number]) 1965 M Date Time Provider Department 06/22/24 ART FIGUEREDO GASTSP During your visit today, we recorded the following information about you: Deonna Patel 06/22/2024 6:55 AM Signed Gp ref and ges in scanned docs Needs registration Magi Benjamin Rachell 06/27/2024 8:50 AM Signed Left VM for patient to call office to update registration and go over records needed for review prior to scheduling. Mali Linton 06/27/2024 12:47 PM Signed Patient returning call to schedule Magi Benjamin Rachell 07/04/2024 11:26 AM Signed Left VM for patient to call office to update registration and go over records needed for review prior to scheduling. Mali Linton 07/04/2024 5:12 PM Signed Patient returning call to schedule Mali Linton 07/05/2024 8:20 AM Signed Received fax from [facility] asking if he has been scheduled. I faxed them back that we have tried to contact him and have been unsuccessful, that he is on our list to call back. JeweltramaineMagi scott Rachell 07/11/2024 5:12 PM Signed Gastric Emptying Study? Yes Scanned doc Has the patient had a Smart Pill? No When was your last EGD? Yes 01/2024 Has the patient had Gastric Bypass? No Has the patient had a Gastric Sleeve? No Has the patient had a Ramesh or Hiatal Hernia Repair? No Has the patient had POP/Pyloroplasty? No Is the patient currently on TPN? No Does the patient have a G/J Tube? No Referring Provider: Art Hayes MD, DO 07/12/2024 10:57 AM Signed Dexcom or empties trial. [facility] surgery and behavioral medicine. EGG is in. Art Figueredo DO 07/12/2024 10:57 AM Signed Addended by: ART FIGUEREDO on: 07/12/2024 10:57 AM Modules accepted: Layla Silva RN 07/12/2024 12:16 PM Signed Screens positive for EMPTIES medically however, unsure if will be complaint with follow ups evaluate at [facility] ISAIAS Aparicio Rose M 07/13/2024 11:43 AM Signed Patient is scheduled at [facility] with GP Team Allergies As of Date: 06/22/2024 (Not on File) Date Reviewed: Never Reviewed Reason for Visit: Appointment [186] Primary Visit Diagnosis:Gastroparesi s [K31.84] Order(s):EGG (ELECTROGASTROGRAPHY) [17539WAD] Order #: [id number] Problem List As Of Date: 06/22/2024 (None) Encounter Status:Closed by DEONNA PATEL on 06/22/24 Normal [facility] gastric emptying studyon 06-12-2024 [place] [address] Nuclear Medicine Report Signed Patient: More Kingsley MR#: [id number] 125 : 1965 Acct:[id number] Age/Sex: 58 / M ADM Date: 06/12/24 Loc: DC Room: Type: [facility] Attending Dr: Tracy Yoon MD Copies to: MD Nam Goodman Jr, DO Ordering Provider: Tracy Yoon MD Date of Service: 06/12/24 DC/DC gastric emptying study: R11.2 - Nausea with vomiting, unspecified GASTRIC EMPTYING STUDY: CLINICAL HISTORY: Nausea and vomiting for several years. TECHNIQUE: Following the oral ingestion of 1.1 mCi Tc 99m labeled sulfur colloid mixed with egg, planar imaging of the abdomen was obtained. FINDINGS: At 30 minutes, 86% of the radiotracer remained within the stomach. At 1 hour, 81% of the radiotracer remained within the stomach. At 2 hours, 52% of the radiotracer remained within the stomach. At 3 hours, 32% of the radiotracer remained within the stomach. At 4 hours, 21% of the radiotracer remained within the stomach. NM/NM gastric emptying study IMPRESSION: SCINTIGRAPHIC EVIDENCE OF GASTROPARESIS. Impression dictated by: Nam Pedro Jr., D.O.06/12/2024 12:11 PM Dictation Location: [place] [address] Transcribed By: [facility] 06/12/24 1211 Dictated By: Nam Pedro Jr, DO 06/12/24 1211 Signed By: 06/12/24 1211 Normal [facility] CT abdomen pelvis w conon CT abdomen pelvis w con [facility] [place] [address] [place], [place] [id number] CT Scan Report Signed Patient: More Kingsley MR#: [id number] 125 : 1965 Acct:[id number] Age/Sex: 58 / M ADM Date: 06/06/24 Loc: DC Room: Type: [facility] Attending Dr: Tracy Yoon MD Copies to: Tracy Yoon MD Ordering Provider: Tracy Yoon MD Date of Service: 06/06/24 CT/CT abdomen pelvis w con: R11.2 - Nausea with vomiting, unspecified CT Abdomen and Pelvis withcontrast TECHNIQUE: Axial imaging with 2-D reconstruction.90 cc of Isovue-300. The CT exam was performed using one or more the following dose reduction techniques: Automated exposure control, adjustment of the MA and/or Kv according to patient size, or use of the iterative reconstruction technique. COMPARISON: None History: Frequent nausea and vomiting LIMITATIONS: None LOWER THORAX Unremarkable LIVER: Hepatic steatosis. No focal hepatic lesion. GALLBLADDER: No gallbladder abnormality identified. BILE DUCTS: No dilatation SPLEEN: Unremarkable PANCREAS: Unremarkable ADRENAL GLANDS: Unremarkable KIDNEYS:Unremarkable AORTA: No abdominal aortic aneurysm identified. RETROPERITONEUM: No significant retroperitoneal abnormalities identified. MESENTERY:Unremarkable SMALL BOWEL: The small bowel loops are nondistended. APPENDIX: The appendix is normal. COLON: Unremarkable URINARY BLADDER: Urinary bladder is unremarkable. REPRODUCTIVE SYSTEM: Prostatomegaly PNEUMOPERITONEUM: None PERITONEAL FLUID:None BONY STRUCTURES: Unremarkable ABDOMINAL WALL: Unremarkable CT/CT abdomen pelvis w con IMPRESSION: No acute findings. Hepatic steatosis. Possible megaly. Nondistended small bowel. Impression dictated by: Jesus Villarreal M.D.06/06/2024 4:07 PM Dictation Location: [place] [address] Transcribed By: [facility] 06/06/24 1605 Dictated By: Jesus Villarreal DO 06/06/24 1601 Signed By: 06/06/[address] [facility] Capillary blood glucose noemi urement by glucometer (mass/volume)Ordered By: Tracy Yoon on 02-03-2024 Glucose [Mass/Vol] 234 mg/dL Normal [facility] Comment on above: Random Glucose Refer ence Range is dependent on time and content of last meal. Glucose of more than 200 mg/dL in a nonstressed, ambulatory subject supports the diagnosis of Diabetes Mellitus. Result Comment: [place] om Glucose Reference Range is dependent on time and content of last meal. Glucose of more than 200 mg/dL in a nonstressed, ambulatory subject supports the diagnosis of Diabetes Mellitus. Performed By: #### G LULS #### Point of Care testing , Glucose Poct Glucometerson 0 02-03-2024 Commemt1 Glu2: Cleaned Meter Normal [facility] Comment on above: Result Comment: PERF ORMED BY: [facility] [address] [place] [address] PATHOLOGIST WOOD PATTERNMAKER TINY JEFFREY M.D. Performed By: #### G LULS #### Point of Care testing , Anuel 02-03-2024 L Specimen: [id number] Received: 02/03/24 Status: BARB Reotoniel Num: [id number] Spec Type: Surgical Subm Dr: Tracy Yoon MD Tissues: A Duodenum - Biopsy (DUODENUM) B GASTRIC FOR HP (GASTRIC HP) Procedures: HE/4, Gross/Micro L4, H PYLORI, IHC First AB Age/ Patient Sex Location Account Attending Physician More Kingsley 58/M [id number] Tracy Yoon MD SPEC NUM: [id number] RECD: 02/03/24 STATUS: SOUKarsten RE NUM: [id number] ZOYA: 02/03/24 DR: Tracy Yoon MD ENTERED: 02/03/[address] [facility] [address]: SPEC TYPE: Surgical DEPT: S ORDERED: HE/4, Gross/Micro L4, H PYLORI, IHC First AB ORDERED: HE/4, Gross/Micro L4, H PYLORI, IHC First AB Pathological Diagnosis A. Duodenum, biopsy: - Unremarkable duodenal mucosa. - Negative for features of celiac disease. B. Stomach, biopsy: - Gastric antrum and gastric body mucosa with mild superficial vascular congestion. - Negative for significant inflammation. - Negative for H. pylori on H. pylori immunostain. - Negative for intestinal metaplasia, dysplasia and malignancy. Clinical Information Nausea/vomiting, rule out celiac, rule out H. pylori by IHC Gross Description A. Received in formalin labeled with the patient's name, date of and duodenum biopsy rule out celiac is one junior tissue measuring 0.4 x 0.3 x 0.2 cm. Entirely submitted in one cassette labeled A1. B. Received in formalin labeled with the patient's name, date of and gastric biopsy rule out HP is one junior tissue measuring 0.5 x 0.3 x 0.2 cm. Entirely submitted in one cassette labeled B1. ---- Specimen: [id number] Received: 02/03/24 Status: BARB Casas Num: [id number] Spec Type: Surgical Subm Dr: Tracy Yoon MD Tissues: A Duodenum - Biopsy (DUODENUM) B GASTRIC FOR HP (GASTRIC HP) Procedures: HE/4, Gross/Micro L4, H PYLORI, IHC First AB ---- Patient: More Kingsley [id number] (Continued) ---- Specimen: Received: 02/03/24 (Continued) Signed (signature on file) Deonna Monroe MD 02/04/24 1411 ---- Specimen: Received: 02/03/24 Status: BARB Casas Num: [id number] Spec Type: Surgical Subm Dr: Tracy Yoon MD Tissues: A Duodenum - Biopsy (DUODENUM) B GASTRIC FOR HP (GASTRIC HP) Procedures: HE/4, Gross/Micro L4, H PYLORI, IHC First AB ---- Patient: More Kingsley [id number] (Continued) ---- Specimen: Received: 02/03/24 (Continued) Microscopic Description Microscopic examination supports the above rendered diagnoses. CPT Codes 88402l8 ---- ---- Specimen: [id number] Received: 02/03/24 Status: BARB Casas Num: [id number] Spec Type: Surgical Subm Dr: Tracy Yoon MD Tissues: A Duodenum - Biopsy (DUODENUM) B GASTRIC FOR HP (GASTRIC HP) Procedures: HE/4, Gross/Micro L4, H PYLORI, IHC First AB ---- Patient: More Kingsley [id number] (Continued) ---- Signed (signature on file) Deonna Monroe MD 02/04/24 1417 Normal [facility] No Panel InformationOrdered By: Tracy Yoon on 02-03-2024 Bedside Glucose Comment Glu2: cleaned meter [facility] A1C HEMOGLOBINon 11-08-2023 HbA1c (Bld) [Mass fraction] 10.4 % [employer] Other Glucose - FINGER STICKon Glucose [Mass/Vol] 319 mg/dL [employer] Other HbA1c (Bld) [Mass fraction]o n 11-08-2023 A1C HEMOGLOBIN [facility] Other XR CHEST 1 Von 03-19-2023 XR CHEST 1 V ONE-VIEW CHEST RADIOGRAPH, 03/18/2023 8:32 PM EDT COMPARISON: Chest, 01/20/2021. CLINICAL HISTORY: Dizziness near syncope. Findings and impression: 1. Minimal linear atelectasis or scarring in the lingula. Lungs otherwise clear. 2. Borderline heart size. 3. No acute osseous abnormality. Electronically authenticated by: Mahad DIXON Date: 2023-03-18 22:26 Normal [facility] BNPon 03-18-2023 Natriuretic peptide B (Bld) [Mass/Vol] 174.0 pg/mL Normal <=900.0 [facility] Comment on above: Performed By: #### H STROPN, CMP, BNP #### [facility] [address] [place] [address] Dr. Michael Gonzales CBC AUTO DIFFon 03-18-2023 BASO # 0.1 103/ul Normal 0.0-0.1 [facility] Comment on above: Performed By: #### C BC #### [facility] [address] [place] [address] Dr. Michael Gonzales Basophils/100 WBC (Bld) 1.4 % Normal 0.2-2.0 [facility] Comment on above: Performed By: #### C BC #### [facility] [address] [place] [address] Dr. Michael Gonzales EO # 0.2 103/ul Normal 0.0-0.7 [facility] Comment on above: Performed By: #### C BC #### [facility] [address] [place] [address] Dr. Michael Gonzales Eosinophils/100 WBC (Bld) 2.3 % Normal 0.9-7.0 [facility] Comment on above: Performed By: #### C BC #### [facility] [address] [place] [address] Dr. Michael Gonzales Erythrocyte distribution width (RBC) [Ratio] 13.9 % Normal 11.0-15.0 [facility] Comment on above: Performed By: #### C BC #### [facility] [address] [place] [address] Dr. Michael Gonzales Hematocrit (Bld) [Volume fraction] 43.6 % Normal 42.0-54.0 [facility] Comment on above: Performed By: #### C BC #### [facility] [address] [place] [address] Dr. Michael Gonzales Hemoglobin (Bld) [Mass/Vol] 14.6 g/dL Normal 14.0-18.0 [facility] Comment on above: Performed By: #### C BC #### [facility] [address] [place] [address] Dr. Michael Gonzales IG # 0.05 10e3/ul Critically high 0.00-0.03 [facility] Comment on above: Performed By: #### C BC #### [facility] [address] [place] [address] Dr. Michael Gonzales IG % 0.5 % Normal 0.0-0.5 [facility] Comment on above: Performed By: #### C BC #### [facility] [address] [place] [address] Dr. Michael Gonzales LYMPH # 2.4 103/ul Normal 1.2-3.8 [facility] Comment on above: Performed By: #### C BC #### [facility] [address] [place] [address] Dr. Michael Gonzales Lymphocytes/100 WBC (Bld) 26.3 % Normal 20.5-60.0 [facility] Comment on above: Performed By: #### C BC #### [facility] [address] [place] [address] Dr. Michael Gonzales MANUAL DIFF REQ NO Normal [facility] Comment on above: Performed By: #### C BC #### [facility] [address] [place] [address] Dr. Michael Gonzales MCH (RBC) [Entitic mass] 28.7 pg Normal 25.9-34.0 [facility] Comment on above: Performed By: #### C BC #### [facility] [address] [place] [address] Dr. Michael Gonzales MCHC (RBC) [Mass/Vol] 33.5 g/dL Normal 29.9-35.2 [facility] Comment on above: Performed By: #### C BC #### [facility] [address] [place] [address] Dr. Michael Gonzales MCV (RBC) [Entitic vol] 85.7 fL Normal 80.0-94.0 [facility] Comment on above: Performed By: #### C BC #### [facility] [address] [place] [address] Dr. Michael Gonzales MONO # 1.3 103/ul Critically high 0.3-0.8 [facility] Comment on above: Performed By: #### C BC #### [facility] [address] [place] [address] Dr. Michael Gonzales Monocytes/100 WBC (Bld) 13.6 % Critically high 1.7-12.0 [facility] Comment on above: Performed By: #### C BC #### [facility] [address] [place] [address] Dr. Michael Gonzales NEUT # 5.2 103/ul Normal 1.4-6.5 [facility] Comment on above: Performed By: #### C BC #### [facility] [address] [place] [address] Dr. Michael Gonzales Neutrophils/100 WBC (Bld) 55.9 % Normal 43.0-75.0 [facility] Comment on above: Performed By: #### C BC #### [facility] [address] [place] [address] Dr. Michael Gonzales Platelet mean volume (Bld) [Entitic vol] 10.9 fL Normal 9.5-13.5 [facility] Comment on above: Performed By: #### C BC #### [facility] [address] [place] [address] Dr. Michael Gonzales PLT 219 103/ul Normal 150-450 [facility] Comment on above: Performed By: #### C BC #### [facility] [address] [place] [address] Dr. Michael Gonzales RBC 5.09 106/ul Normal 4.70-6.10 [facility] Comment on above: Performed By: #### C BC #### [facility] [address] [place] [address] Dr. Michael Gonzales WBC 9.2 103/ul Normal 4.0-11.0 [facility] Comment on above: Performed By: #### C BC #### [facility] [address] [place] [address] Dr. Michael Gonzales MAGNESIUMon 03-18-2023 Magnesium [Mass/Vol] 2.0 mg/dL Normal 1.8-2.4 [facility] Comment on above: Performed By: #### M G #### [facility] [address] [place] [address] Dr. Michael Gonzales PROF 14(COMP METB)on 023 Albumin [Mass/Vol] 3.3 g/dL Critically low 3.4-5.0 Th [facility] Comment on above: Performed By: #### H STROPN, CMP, BNP #### [facility] [address] [place] [address] Dr. Michael Gonzales Albumin/Globulin [Mass ratio] 0.7 {ratio} Normal [facility] Comment on above: Performed By: #### H STROPN, CMP, BNP #### [facility] [address] [place] [address] Dr. Michael Gonzales ALP [Catalytic activity/Vol] 118 U/L Critically high 46-116 [facility] Comment on above: Performed By: #### H STROPN, CMP, BNP #### [facility] [address] [place] [address] Dr. Michael Gonzales ALT [Catalytic activity/Vol] 19 U/L Normal 16-63 [facility] Comment on above: Performed By: #### H STROPN, CMP, BNP #### [facility] [address] [place] [address] [address] Michael Gonzales Anion gap [Moles/Vol] 13.3 mmol/L Normal Th e [facility] Comment on above: Performed By: #### H STROPN, CMP, BNP #### [facility] [address] [place] [address] [address] Michael Gonzales AST [Catalytic activity/Vol] 24 U/L Normal 15-37 [facility] Comment on above: Performed By: #### H STROPN, CMP, BNP #### [facility] [address] [place] [address] Dr. Michael Gonzales Bilirubin [Mass/Vol] 1.0 mg/dL Normal 0.2-1.0 [facility] Comment on above: Performed By: #### H STROPN, CMP, BNP #### [facility] [address] [place] [address] Dr. Michael Gonzales Calcium [Mass/Vol] 8.7 mg/dL Normal 8.5-10.1 [facility] Comment on above: Performed By: #### H STROPN, CMP, BNP #### [facility] [address] [place] [address] Dr. Michael Gonzales Chloride [Moles/Vol] 101 mmol/L Normal 98-107 [facility] Comment on above: Performed By: #### H STROPN, CMP, BNP #### [facility] [address] [place] [address] Dr. Michael Gonzales CO2 [Moles/Vol] 22.0 mmol/L Normal 21.0-32.0 [facility] Comment on above: Performed By: #### H STROPN, CMP, BNP #### [facility] [address] [place] [address] [address] Michael Gonzales Creatinine [Mass/Vol] 2.08 mg/dL Critically high 0.70-1.30 [facility] Comment on above: Performed By: #### H STROPN, CMP, BNP #### [facility] [address] [place] [address] Dr. Michael Gonzales EGFR-AF KENYAN 40 mL/min/1.73m2 Critically low >=60 [facility] Comment on above: Performed By: #### H STROPN, CMP, BNP #### [facility] [address] [place] [address] Dr. Michael Gonzales EGFR-NON AF KENYAN 33 mL/min/1.73m2 Critically low >=60 [facility] Comment on above: Performed By: #### H STROPN, CMP, BNP #### [facility] [address] [place] [address] Dr. Michael Gonzales Globulin (S) [Mass/Vol] 4.6 g/dL Normal [facility] Comment on above: Performed By: #### H STROPN, CMP, BNP #### [facility] [address] [place] [address] Dr. Michael Gonzales Glucose [Mass/Vol] 319 mg/dL Critically high 74-106 T [facility] Comment on above: Performed By: #### H STROPN, CMP, BNP #### [facility] [address] [place] [address] Dr. Michael Gonzales Potassium [Moles/Vol] 4.3 mmol/L Normal 3.5-5.1 [facility] Comment on above: Performed By: #### H STROPN, CMP, BNP #### [facility] [address] [place] [address] Dr. Michael Gonzales Protein [Mass/Vol] 7.9 g/dL Normal 6.4-8.2 [facility] Comment on above: Performed By: #### H STROPN, CMP, BNP #### [facility] [address] [place] [address] Dr. Michael Gonzales Sodium [Moles/Vol] 132 mmol/L Critically low 136-145 Th [facility] Comment on above: Performed By: #### H STROPN, CMP, BNP #### [facility] [address] [place] [address] Dr. Michael Gonzales Urea nitrogen [Mass/Vol] 33.0 mg/dL Critically high 7.0-18.0 [facility] Comment on above: Performed By: #### H STROPN, CMP, BNP #### [facility] [address] [address] [address] Michael Gonzales Urea nitrogen/Creatinine [Mass ratio] 15.9 mg/mg Normal [facility] Comment on above: Performed By: #### H STROPN, CMP, BNP #### [facility] [address] [address] [address] Michael Gonzales PROTIMEon 03-18-2023 INR Coag (PPP) [Relative time] 0.93 {INR} Normal [facility] Comment on above: Performed By: #### P TT, PT #### [facility] [address] [place] [address] Dr. Michael Gonzales INR GUIDELINES SEE BELOW Normal [facility] Comment on above: Result Comment: AMAURI RED INR: 2.0 - 3.0 CONDITIONS NOT LISTED BELOW 2.5 - 3.5 FOR PROSTHETIC HEART VALVE REPLACEMENT 2.5 - 3.5 RECURRENT THROMBOSIS Performed By: #### P TT, PT #### [facility] [address] [place] [address] Dr. Michael Gonzales PT Coag (PPP) [Time] 9.9 s Normal 9.0-11.6 [facility] Comment on above: Performed By: #### P TT, PT #### [facility] [address] [place] [address] Dr. Michael Gonzales PTTon 03-18-2023 aPTT Coag (Bld) [Time] 26.5 s Normal 22.3-36.2 [facility] Comment on above: Performed By: #### P TT, PT #### [facility] [address] [place] [address] Dr. Michael Gonzales TROPONIN, HIGH SENSITIVITYon 03-18-2023 HSTROP 7.3 pg/mL Normal 4.0-76.1 [facility] Comment on above: Result Comment: CUT- OFF POINTS HAVE BEEN ESTABLISHED BASED ON THE FOURTH UNIVERSAL DEFINITIONS OF MYOCARDIAL INFARCTION. THE UPPER REFERENCE LIMIT (URL) OF TROPONIN, DEFINED THE 99TH PERCENTILE OF cTnI DISTRIBUTION IN A REFERENCE POPULATION, HAS BEEN CONFIRMED THE DECISION THRESHOLD FOR CA DIAGNOSIS. Performed By: #### H STROPN, CMP, BNP #### [facility] [address], [place] [address] Dr. Michael Gonzales XR FOOT LEFT 3+ VIEWS (STAND ZAHRA)on 01-25-2021 FINDINGS/ Severe destructive changes at the midfoot and about the 1st MTP joint are similar to the prior exam. Chronic periosteal reaction along multiple metatarsals. No displaced fracture identified. Soft tissue lucency along the dorsal midfoot on lateral view is enlarged and may represent gas and/or abscess. There is marked dorsal foot soft tissue edema. There is severe Charcot arthropathy. Superimposed osteomyelitis is not excluded. Workstation ID: [id number] [facility] EXAMINATION: XR FOOT LEFT 3+ VIEWS (STANDARD) 01/24/2021 1:27 pm HISTORY: ORDERING SYSTEM PROVIDED HISTORY: Subacute osteomyelitis of left foot (HCC), TECHNOLOGIST PROVIDED HISTORY: Illness/Other Reason for exam: non healing wound on top of foot Cancer History: Surgery, RadiationHistory: Encounter Type: Initial Additional signs and symptoms: pain ORDERING SYSTEM PROVIDED DIAGNOSIS CODES: M86.272 Subacute osteomyelitis of left foot (HCC) COMPARISON: 01/09/2021 [facility] Bronson, Avery Magallanes ji Speechq - 01/25/2021 2:00 PM EST EXAMINATION: XR FOOT LEFT 3+ VIEWS (STANDARD) 01/24/2021 1:27 pm HISTORY: ORDERING SYSTEM PROVIDED HISTORY: Subacute osteomyelitis of left foot (HCC), TECHNOLOGIST PROVIDED HISTORY: Illness/Other Reason for exam: non healing wound on top of foot Cancer History: Surgery, RadiationHistory: Encounter Type: Initial Additional signs and symptoms: pain ORDERING SYSTEM PROVIDED DIAGNOSIS CODES: M86.272 Subacute osteomyelitis of left foot (HCC) COMPARISON: 01/09/2021 IMPRESSION: FINDINGS/ Severe destructive changes at the midfoot and about the 1st MTP joint are similar to the prior exam. Chronic periosteal reaction along multiple metatarsals. No displaced fracture identified. Soft tissue lucency along the dorsal midfoot on lateral view is enlarged and may represent gas and/or abscess. There is marked dorsal foot soft tissue edema. There is severe Charcot arthropathy. Superimposed osteomyelitis is not excluded. Workstation ID: [id number] [facility] XR FOOT LEFT 3+ VIEWS (STAND ZAHRA)on 01-24-2021 XR FOOT LEFT 3+ VIEWS (STANDARD) EXAMINATION: XR FOOT LEFT 3+ VIEWS (STANDARD) 01/24/2021 1:27 pm HISTORY: ORDERING SYSTEM PROVIDED HISTORY: Subacute osteomyelitis of left foot (HCC), TECHNOLOGIST PROVIDED HISTORY: Illness/Other Reason for exam: non healing wound on top of foot Cancer History: Surgery, RadiationHistory: Encounter Type: Initial Additional signs and symptoms: pain ORDERING SYSTEM PROVIDED DIAGNOSIS CODES: M86.272 Subacute osteomyelitis of left foot (HCC) COMPARISON: 01/09/2021 IMPRESSION: FINDINGS/ Severe destructive changes at the midfoot and about the 1st MTP joint are similar to the prior exam. Chronic periosteal reaction along multiple metatarsals. No displaced fracture identified. Soft tissue lucency along the dorsal midfoot on lateral view is enlarged and may represent gas and/or abscess. There is marked dorsal foot soft tissue edema. There is severe Charcot arthropathy. Superimposed osteomyelitis is not excluded. Workstation ID: [id number] Dictated by: RAMONE HAWTHORNE on [facility] Jan 25, 2021 1:58:20 PM EST Transcribed by: RAMONE HAWTHORNE on [facility] Jan 25, 2021 1:58:20 PM EST Finalized by: RAMONE HAWTHORNE on [facility] Jan 25, 2021 1:58:20 PM EST Normal [facility] Comment on above: Order Comment: Injur y/Trauma or Illness?:Illness/Other How long have you had these symptoms (acute/chronic)?:Acute Reason for exam?:non healing wound on top of foot History of cancer?: Surgeries, chemotherapy, or radiation?: Type of Exam?:Initial Additional signs and symptoms?:pain Otheron 01-09-2021 No acute osseous abnormality. Workstation ID: [id number] [facility] EXAMINATION: XR ANKL E LEFT 3+ VIEWS (STANDARD); XR FOOT LEFT 3+ VIEWS (STANDARD) 01/09/2021 3:32 pm HISTORY: ORDERING SYSTEM PROVIDED HISTORY: martell, TECHNOLOGIST PROVIDED HISTORY: Illness/Other Reason for exam: charcot joint of ankle Cancer History: Surgery, RadiationHistory: Encounter Type: Initial Additional signs and symptoms: ORDERING SYSTEM PROVIDED DIAGNOSIS CODES: M14.679 Charcot's joint of ankle, unspecified laterality COMPARISON: 11/15/2020 FINDINGS: There is no acute displaced fracture or dislocation identified. Advanced midfoot collapse likely corresponds with underlying Charcot joint. Large inferior calcaneal spur is noted. Small distal Achilles enthesophyte noted. Vascular calcifications are present. Soft tissues are diffusely edematous with skin thickening. [facility] Interface, Rad In Fu ji Speechq - 01/09/2021 4:13 PM EST EXAMINATION: XR ANKLE LEFT 3+ VIEWS (STANDARD); XR FOOT LEFT 3+ VIEWS (STANDARD) 01/09/2021 3:32 pm HISTORY: ORDERING SYSTEM PROVIDED HISTORY: martell, TECHNOLOGIST PROVIDED HISTORY: Illness/Other Reason for exam: charcot joint of ankle Cancer History: Surgery, RadiationHistory: Encounter Type: Initial Additional signs and symptoms: ORDERING SYSTEM PROVIDED DIAGNOSIS CODES: M14.679 Charcot's joint of ankle, unspecified laterality COMPARISON: 11/15/2020 FINDINGS: There is no acute displaced fracture or dislocation identified. Advanced midfoot collapse likely corresponds with underlying Charcot joint. Large inferior calcaneal spur is noted. Small distal Achilles enthesophyte noted. Vascular calcifications are present. Soft tissues are diffusely edematous with skin thickening. IMPRESSION: No acute osseous abnormality. Workstation ID: [id number] [facility] XR ANKLE LEFT 3+ VIEWS (JONI DARD)on 01-09-2021 XR ANKLE LEFT 3+ VIEWS (STANDARD) EXAMINATION: XR ANKLE LEFT 3+ VIEWS (STANDARD); XR FOOT LEFT 3+ VIEWS (STANDARD) 01/09/2021 3:32 pm HISTORY: ORDERING SYSTEM PROVIDED HISTORY: martell, TECHNOLOGIST PROVIDED HISTORY: Illness/Other Reason for exam: charcot joint of ankle Cancer History: Surgery, RadiationHistory: Encounter Type: Initial Additional signs and symptoms: ORDERING SYSTEM PROVIDED DIAGNOSIS CODES: M14.679 Charcot's joint of ankle, unspecified laterality COMPARISON: 11/15/2020 FINDINGS: There is no acute displaced fracture or dislocation identified. Advanced midfoot collapse likely corresponds with underlying Charcot joint. Large inferior calcaneal spur is noted. Small distal Achilles enthesophyte noted. Vascular calcifications are present. Soft tissues are diffusely edematous with skin thickening. IMPRESSION: No acute osseous abnormality. Workstation ID: [id number] Dictated by: BRAEDEN LEGGETT on WedJan 09, 2021 4:10:37 PM EST Transcribed by: BRAEDEN LEGGETT on WedJan 09, 2021 4:10:37 PM EST Finalized by: BRAEDEN LEGGETT on [facility] Jan 09, 2021 4:10:[address] [facility] Comment on above: Order Comment: Injur y/Trauma or Illness?:Illness/Other How long have you had these symptoms (acute/chronic)?:Acute Reason for exam?:charcot joint of ankle History of cancer?: Surgeries, chemotherapy, or radiation?: Type of Exam?:Initial Additional signs and symptoms?: XR FOOT LEFT 3+ VIEWS (STAND ZAHRA)on 01-09-2021 XR FOOT LEFT 3+ VIEWS (STANDARD) EXAMINATION: XR ANKLE LEFT 3+ VIEWS (STANDARD); XR FOOT LEFT 3+ VIEWS (STANDARD) 01/09/2021 3:32 pm HISTORY: ORDERING SYSTEM PROVIDED HISTORY: martell, TECHNOLOGIST PROVIDED HISTORY: Illness/Other Reason for exam: charcot joint of ankle Cancer History: Surgery, RadiationHistory: Encounter Type: Initial Additional signs and symptoms: ORDERING SYSTEM PROVIDED DIAGNOSIS CODES: M14.679 Charcot's joint of ankle, unspecified laterality COMPARISON: 11/15/2020 FINDINGS: There is no acute displaced fracture or dislocation identified. Advanced midfoot collapse likely corresponds with underlying Charcot joint. Large inferior calcaneal spur is noted. Small distal Achilles enthesophyte noted. Vascular calcifications are present. Soft tissues are diffusely edematous with skin thickening. IMPRESSION: No acute osseous abnormality. Workstation ID: [id number] Dictated by: BRAEDEN LEGGETT on [facility] Jan 09, 2021 4:10:37 PM EST Transcribed by: BRAEDEN LEGGETT on [facility] Jan 09, 2021 4:10:37 PM EST Finalized by: BRAEDEN LEGGETT on [facility] Jan 09, 2021 4:10:[address] [facility] Comment on above: Order Comment: Injur y/Trauma or Illness?:Illness/Other How long have you had these symptoms (acute/chronic)?:Acute Reason for exam?:open wound History of cancer?: Surgeries, chemotherapy, or radiation?: Type of Exam?:Initial Additional signs and symptoms?: Biopsyon 12-27-2020 Roger Puente 12/27/2020 11:33 PM Biopsy Timeout: Verbal Consent obtained?: Yes Consent given by:: Patient Procedure: Procedure Performed for: Bone Biopsy - Left foot Performed by: Physician Additional Procedure details:: A bone biopsy of the midfoot was obtained using a rongeur and sent to microbiology for culture and sensitivity Response to Treatment:: Procedure was tolerated well [facility] Basic Metabolic Panelon 12-3 Anion gap [Moles/Vol] 9 mmol/L Low 10 - 2 0 mmol/L [facility] Calcium [Mass/Vol] 8.9 mg/dL 8.4 - 10. 2 mg/dL [facility] Chloride [Moles/Vol] 104 mmol/L 98 - 10 8 mmol/L [facility] Creatinine [Mass/Vol] 1.01 mg/dL 0.50 - 1.30 [facility] GFR/1.73 sq M predicted among non-blacks MDRD (S/P/Bld) [Vol rate/Area] The eGFR should be used for monitoring renal function only and not for medication dosing. [facility] GFR/1.73 sq M.predicted CKD-EPI (S/P/Bld) [Vol rate/Area] 84 >=60 mL/min/1.73 m2 [facility] Glucose [Mass/Vol] 156 mg/dL High 65 - 99 mg/dL [facility] HCO3 [Moles/Vol] 27 mmol/L 21 - 32 mmol/L [facility] Interpretation and review of laboratory results Abnormal [facility] Potassium [Moles/Vol] 3.8 mmol/L 3.5 - 5.1 mmol/L [facility] Sodium [Moles/Vol] 136 mmol/L 135 - 145 mmol/L [facility] Urea nitrogen [Mass/Vol] 15 mg/dL 8 - 25 mg/dL [facility] Urea nitrogen/Creatinine [Mass ratio] 14.9 mg/mg [facility] CBCon 11-21-2020 Erythrocyte distribution width (RBC) [Entitic vol] 15.4 % High 11.6 - 14.8 % [facility] Hematocrit (Bld) [Volume fraction] 34.1 % Low 41 - 53 % [facility] Hemoglobin (Bld) [Mass/Vol] 10.3 g/dL Low 13.5 - 17.5 g/dL [facility] Interpretation and review of laboratory results Abnormal [facility] MCH (RBC) [Entitic mass] 25.5 pg Low 26 - 34 pg [facility] MCHC (RBC) [Mass/Vol] 30.2 g/dL Low 31 - 37 g/dL [facility] MCV (RBC) [Entitic vol] 84.4 fL 80 - 100 fL [facility] Nucleated RBC (Bld) [#/Vol] 0.00 10*3/uL [facility] Nucleated RBC/100 WBC (Bld) [Ratio] 0.0 % [facility] Platelet mean volume (Bld) [Entitic vol] 10.0 fL 9.4 - 12.4 fL [facility] Platelets (Bld) [#/Vol] 494 10*3/uL High [facility] RBC (Bld) [#/Vol] 4.04 10*6/uL Low [facility] WBC (Bld) [#/Vol] 6.26 10*3/uL [facility] Magnesium Levelon 11-21-2020 Interpretation and review of laboratory results Normal [facility] Magnesium [Mass/Vol] 1.8 mg/dL 1.6 - 2 .4 mg/dL [facility] POC Glucoseon 11-21-2020 Glucose [Mass/Vol] 157 mg/dL High 65 - 99 mg/dL [facility] Interpretation and review of laboratory results Abnormal [facility] Glucose [Mass/Vol] 132 mg/dL High 65 - 99 mg/dL [facility] Interpretation and review of laboratory results Abnormal [facility] Glucose [Mass/Vol] 154 mg/dL High 65 - 99 mg/dL [facility] Interpretation and review of laboratory results Abnormal [facility] Basic Metabolic Panelon 10-24 Anion gap [Moles/Vol] 8 mmol/L Low 10 - 2 0 mmol/L [facility] Calcium [Mass/Vol] 8.6 mg/dL 8.4 - 10. 2 mg/dL [facility] Chloride [Moles/Vol] 103 mmol/L 98 - 10 8 mmol/L [facility] Creatinine [Mass/Vol] 1.02 mg/dL 0.50 - 1.30 [facility] GFR/1.73 sq M predicted among non-blacks MDRD (S/P/Bld) [Vol rate/Area] The eGFR should be used for monitoring renal function only and not for medication dosing. [facility] GFR/1.73 sq M.predicted CKD-EPI (S/P/Bld) [Vol rate/Area] 83 >=60 mL/min/1.73 m2 [facility] Glucose [Mass/Vol] 151 mg/dL High 65 - 99 mg/dL [facility] HCO3 [Moles/Vol] 28 mmol/L 21 - 32 mmol/L [facility] Potassium [Moles/Vol] 3.7 mmol/L 3.5 - 5.1 mmol/L [facility] Sodium [Moles/Vol] 135 mmol/L 135 - 145 mmol/L [facility] Urea nitrogen [Mass/Vol] 13 mg/dL 8 - 25 mg/dL [facility] Urea nitrogen/Creatinine [Mass ratio] 12.7 mg/mg [facility] CBCon 11-20-2020 Erythrocyte distribution width (RBC) [Entitic vol] 15.7 % High 11.6 - 14.8 % [facility] Hematocrit (Bld) [Volume fraction] 32.9 % Low 41 - 53 % [facility] Hemoglobin (Bld) [Mass/Vol] 9.9 g/dL Low 13.5 - 17.5 g/dL [facility] Interpretation and review of laboratory results Abnormal [facility] MCH (RBC) [Entitic mass] 25.6 pg Low 26 - 34 pg [facility] MCHC (RBC) [Mass/Vol] 30.1 g/dL Low 31 - 37 g/dL [facility] MCV (RBC) [Entitic vol] 85.0 fL 80 - 100 fL [facility] Nucleated RBC (Bld) [#/Vol] 0.00 10*3/uL [facility] Nucleated RBC/100 WBC (Bld) [Ratio] 0.0 % [facility] Platelet mean volume (Bld) [Entitic vol] 10.2 fL 9.4 - 12.4 fL [facility] Platelets (Bld) [#/Vol] 512 10*3/uL High [facility] RBC (Bld) [#/Vol] 3.87 10*6/uL Low [facility] WBC (Bld) [#/Vol] 7.74 10*3/uL [facility] CRP, Inflammationon 11-20-20 20 CRP [Mass/Vol] 162.0 mg/L High <=10.0 [facility] Magnesium Levelon 11-20-2020 Interpretation and review of laboratory results Normal [facility] Magnesium [Mass/Vol] 1.7 mg/dL 1.6 - 2 .4 mg/dL [facility] Otheron 11-20-2020 Interpretation and review of laboratory results Abnormal [facility] POC Glucoseon 11-20-2020 Glucose [Mass/Vol] 121 mg/dL High 65 - 99 mg/dL [facility] Interpretation and review of laboratory results Abnormal [facility] Glucose [Mass/Vol] 117 mg/dL High 65 - 99 mg/dL [facility] Interpretation and review of laboratory results Abnormal [facility] Glucose [Mass/Vol] 147 mg/dL High 65 - 99 mg/dL [facility] Interpretation and review of laboratory results Abnormal [facility] Glucose [Mass/Vol] 177 mg/dL High 65 - 99 mg/dL [facility] Interpretation and review of laboratory results Abnormal [facility] Sedimentation Rateon 020 ESR (Bld) [Velocity] 116 mm/h High [facility] Interpretation and review of laboratory results Abnormal [facility] TISSUE EXAMon 11-20-2020 Case Report Surgical Pathology Report Case: [id number] Authorizing Provider: Leanne Cherry DPM Collected: 11/18/2020 12:59 PM Ordering Location: [facility] Received: 11/18/2020 01:28 PM Pathologist: Boy Cortez MD Specimen: Foot, Left, Left Foot Bone [facility] Pathology report final diagnosis Narrative [id number] Pkf0gqv2GvuUVvbYWnCCjz mZJdzyCihq08qLV6rC09AE 6eTIUyDgE1WIMieeJ7Gac3 KXQyLFZqkRXxN201w4qbh2 avhhCbkYL1eUaaPYAgJGHo YWluXGJcZnMyMCBBLiAgXH Uwd3AoR3B9RWSlEXgrz7wg EWCpNLklz5ZjVLgLQYEBYC 7YHW2tfUK2KSuXVGJTH6hO sWT0AtW5lAC8KR18WMOyLU AlhQByHYenG853Nr1bEHXx wwKoaFWztPLoFJomjq55IG U5WWsuDwshvOI7DFvvFyud oW9wmXURWSKKBatHSzkksu XcUH3PVBbFGpFQYT90Cj78 EZUtCFTltSQgTSssH405HL GsqVGAb716y1sfdBRjZBby HapwqHIxyxV4ZHvJWUATCB yIUdUrDM7gTUqIQEJZYwX4 Ox84CSQnWTTorIKmYDkzU9 59YQOaQZsvXJYfo0KxQ6Fx YlxmczIwICwgZXhjaXNpb2 85i4wheQJqEXecEnbuzOHj aoU6JMsMTPOYCRuXKnDjHE 3zEErKF4ONJlZ0WiUiUTR1 MXwxfXtcZmxkcnNsdCBcJz EbjX0olJlhvL8vUmvqdnAo LAEattywsCdgQKrlvN96Vp LvXlUeAWA4hQFxg5X1GS4t fTMnvEMujk3fhGFvKJDgnb TiqQDmXMYrY55XFhMFFULN X26EDSABSPBDK9UXS8dTJQ R7DhR6qDU2CmV8YdibGCJO ZJFZUUwZTV2QLGZXUGSRIX 9NRtVoG1aOATXUYjLcWZDH SCUBKSSjZeWLFK4aQbf1FI JtsCHUh180M1xEFDDZRtHc VCLIACCHNWThAP5RLJDMMT XGIU3WMIFGM46WAWILIUYU Q6TZZ4sNVBLya6FQjGHwxH I5XtIzYIG1OghlQX6qWMxJ H3CPC7pOGORzRXQSKIBHMX LiDO2NYWkZOR6XDMEnIHWF TJWJRLSoAeRMXW7dAJhYPY 8FOFEuWXEBRCINHINeYH3M UBRDDG9SEXIXMOFMO87QSO YNKCWKO7IWH5jASVTVNOFY NlRIOpNQCA7GBBHEFXNJCP 9FTkR9 [facility] Pathology report gross observation Narrative u7ebkBUsUGFuiCY5JpOrVQ Zup7xvz3BnhZKmhVBlHKvm nLGjmrNohx31sOS7wX63XS 3wBCTbMpP4EMOxswM6Qmu9 FVVdVXNseJKzG020e6mjt7 pqehSvrZT2kKgkZFSuEOBk IAfbGBKfDjNaCzNmSCp2NS LofC4bOe5rbEBdmL1fEKUl k2btnrN3NWYnUrMmWb9lhJ fxIUQyrROAf20fWsbwLMBj c9CwS1O2ZFOnMTece2sdMB QlFNmnk6QdORzBXQHRKM4K CQ6faMB6DRoEDJHIZ6oFvD Y5HBYgaID2NN62AZDhRKBs eXNmAEefJ435mLHyPPisVi wwyOE9WCvgPiomiX1olJBL NUYBIrwYUedkjjKkPM6JFY PZUQ9LpMQ4LFNgyYI4GN09 VGBnUONtyHYcICbcU578KP BsYWluXGZzMjAgIGZyYWdt KE73ZFExKO4rRTXjifQtdS Zqc5AdtH1pLEZlBVU7UMDm WyA4EYVxPhHhqXigkd43WR I9r9enjQZqOWnjPjypmYFa azF7ASeKFKYITCsSLzBmWY 5xJRlTI0GOSQnCYmnqRUE1 L7lwjJX1b0hfbJXpa4k3IB jvPRY3wG18VCFcJLalp2or EMUlKYcxu7XqRTtIBAVIZT 9JWN9aqNF2OYhQMNLMNMri SMC8T7jgwIB5n1jpxDOaf2 n7XEuhQIL1yWvvuZUyhhdz lbKwJNUmU9GfmOl4dKPoGB ZvciBkZWNhbGNpZmljYXRp j17mHPDBb4BkfQs8SLV3Ba 4hnLOtQCXjjzEeKUQmc1Xz dHRlKHMpLlxwYXJccGFyZF daNPZzSJ1piLLvLPjik9Yt DIG5VE1vuaR5hB2dBDMmuu Mamq9fTYEapNdhJUSex2Kk BOfnAWyxd3NszNJqAI7rAf P9DRxlXYOymcIeSJT8OQ08 CGHLEQ5yKktfkGImPJ9EBU Y2COHxIKRhoxbfCCBoHMTu YlxwYXJcdiBTTUFSVExJU1 UaKOQABCZJXOWwHaNVMY2e NdNoIWB6WD9iNvI3YBBqrI T4RLSWSANHYZaLX2UnRCUY LZQZEJYbLD2XFPgAJRDKEO PUK71ZOBGPTKSRI8EHM2iO QUhONYIBIXQVV26CNJEILW OUS6HNHORBSZOIDEfSMLVU Wc8DNBMLUWFYIA5CQRwFEd TbDWgFAJ96dRNjdoYrUAnw KVD8KGk7ElVppNIrs8ELKJ wnVDNcH4McU4M9KXkpGDL3 Ttq7ZqUrjBRXPMLWNEgYNA BROw1UZVTMVALDFR1BUnGy G3HXNZ1FUf3TZSMOAOIKFZ 1BQPxRLeCvZ8XFQF1VQb2L YKCDWWHJRI8HGtCcXKWKL9 VTMlHGM6bhBGRXFOOVOPPe AdGXXJ6bVDJCHS5BHQANKF SIZ05KBAORJPHRR0FQOO0= [facility] Pathology report microscopic observation Narrative Other stain t6xjrVVlSFLrdWWdVcWtXQ BmCVJjw3ydHYXruYBtCiQf MzNcZnRuYmpcdWMxXGRlZm Dex4zxy733eTNyx7zqVGFk ThZ6jXJnQVDsnLFvS192EA UtIIvgi1inz3KiRFOteQVe c0L2NEXJwzqhdXh6fUqwP8 4xz5B9IcauR9ykWMLsNWIg B4QcHI7tCBHnHci0DAP7DM O6QEYbDSYrT2DcXP8wKDKc nDQwJRm7q8cjsCacJEMlWZ W3p9zgDUxrzqDmBI2azq5i qQn7e9lhlpLxPKDkDDXxbK JDYWYjX4BebBclTa0iqBm6 kAvkAnweCMP5Fui3GE4efk 62xkd1aUkhUEQbsdrfRaI3 OMcvIFIqtzmgRCj8LKcvUB VsjKE3WNYqhGRrH7CnLQBc LS9eyey1LND8PLvkRCCyPe N0ULAmxSMtPNHsmLmdDFsz z269YIA4EbZrZH1uB9Njs5 Q2dL3neKXnFDIquNAqBsHq CVQond8caVZwZGdej6HzZW B2deY0fDLgyHJgJTJrUW76 Hdnrk3SeAvfdSSS3SUSlbi Xlr7Muz1orHjSejlCrG7qk Y3HpZYLpFQPrPVJaGfKhyv Ezy9Pfm9GejZSniNn6n7to AQFhCTDxbHmdy7drOQZ6NM TlU8F3vVClf0nnPJlhHGZo sYA4auM4FRXilLZpY7GhsL 1vCOXcVD4etwq9h7deFYC3 XYdzBNPdJfU8xcO3MTDgqD VpLQFutSnaNFprm446IIG7 VyBxOLQab3YsU5YkjEwrO1 9ufJebW95hZAQnaWuxhN5c eTytoU0wCaSlBvCdOGlfmW xwbGFpblxmMVxmczIwXGxh yeowPUZsGUzaM5ymNlSnJN WrbXfbDGtlf9CjCMHoCNMb TmZdGLeznf1mF18ybFHsPK pwiDcgDPHyo51fiWBiaCCr Xp8ysDApZoceRTF0 [facility] WOUND AEROBIC CULTUREon 12-3 0 Bacteria identified Aer cx Nom (Wound) Rare growth Staphylococcus aureus Abnormal [facility] Comment on above: This Staphylococcus aureus is Methicillin SUSCEPTIBLE by PBP2a testing. Beta-lactams like Cefazolin and Nafcillin are superior to Vancomycin for treating mSsa. Interpretation and review of laboratory results Abnormal [facility] Microscopic observation Gram stain Nom (Wound) No Organisms Seen [facility] Microscopic observation Gram stain Nom (Wound) Many WBC [facility] Microscopic observation Gram stain Nom (Wound) No Epithelial Cells Seen [facility] Basic Metabolic Panelon 10-23 Anion gap [Moles/Vol] 12 mmol/L 10 - 2 0 mmol/L [facility] Calcium [Mass/Vol] 8.8 mg/dL 8.4 - 10. 2 mg/dL [facility] [facility] Chloride [Moles/Vol] 103 mmol/L 98 - 10 8 mmol/L [facility] Creatinine [Mass/Vol] 0.92 mg/dL 0.50 - 1.30 [facility] GFR/1.73 sq M predicted among non-blacks MDRD (S/P/Bld) [Vol rate/Area] The eGFR should be used for monitoring renal function only and not for medication dosing. [facility] GFR/1.73 sq M.predicted CKD-EPI (S/P/Bld) [Vol rate/Area] 94 >=60 mL/min/1.73 m2 [facility] Glucose [Mass/Vol] 132 mg/dL High 65 - 99 mg/dL [facility] HCO3 [Moles/Vol] 25 mmol/L 21 - 32 mmol/L [facility] Interpretation and review of laboratory results Abnormal [facility] Potassium [Moles/Vol] 3.8 mmol/L 3.5 - 5.1 mmol/L [facility] Sodium [Moles/Vol] 136 mmol/L 135 - 145 mmol/L [facility] Urea nitrogen [Mass/Vol] 12 mg/dL 8 - 25 mg/dL [facility] Urea nitrogen/Creatinine [Mass ratio] 13.0 mg/mg [facility] CBCon 11-19-2020 Erythrocyte distribution width (RBC) [Entitic vol] 15.7 % High 11.6 - 14.8 % [facility] Hematocrit (Bld) [Volume fraction] 33.2 % Low 41 - 53 % [facility] Hemoglobin (Bld) [Mass/Vol] 10.2 g/dL Low 13.5 - 17.5 g/dL [facility] Interpretation and review of laboratory results Abnormal [facility] MCH (RBC) [Entitic mass] 25.5 pg Low 26 - 34 pg [facility] MCHC (RBC) [Mass/Vol] 30.7 g/dL Low 31 - 37 g/dL [facility] MCV (RBC) [Entitic vol] 83.0 fL 80 - 100 fL [facility] Nucleated RBC (Bld) [#/Vol] 0.00 10*3/uL [facility] Nucleated RBC/100 WBC (Bld) [Ratio] 0.0 % [facility] Platelet mean volume (Bld) [Entitic vol] 9.9 fL 9.4 - 12.4 fL [facility] Platelets (Bld) [#/Vol] 596 10*3/uL High [facility] RBC (Bld) [#/Vol] 4.00 10*6/uL Low [facility] WBC (Bld) [#/Vol] 10.04 10*3/uL [facility] Magnesium Levelon 11-19-2020 Interpretation and review of laboratory results Normal [facility] Magnesium [Mass/Vol] 1.7 mg/dL 1.6 - 2 .4 mg/dL [facility] POC Glucoseon 11-19-2020 Glucose [Mass/Vol] 174 mg/dL High 65 - 99 mg/dL [facility] Interpretation and review of laboratory results Abnormal [facility] Glucose [Mass/Vol] 180 mg/dL High 65 - 99 mg/dL [facility] Interpretation and review of laboratory results Abnormal [facility] Glucose [Mass/Vol] 166 mg/dL High 65 - 99 mg/dL [facility] Interpretation and review of laboratory results Abnormal [facility] Glucose [Mass/Vol] 127 mg/dL High 65 - 99 mg/dL [facility] Interpretation and review of laboratory results Abnormal [facility] Basic Metabolic Panelon 10-23 Anion gap [Moles/Vol] 10 mmol/L 10 - 2 0 mmol/L [facility] Calcium [Mass/Vol] 8.7 mg/dL 8.4 - 10. 2 mg/dL [facility] Chloride [Moles/Vol] 104 mmol/L 98 - 10 8 mmol/L [facility] Creatinine [Mass/Vol] 0.99 mg/dL 0.50 - 1.30 [facility] GFR/1.73 sq M predicted among non-blacks MDRD (S/P/Bld) [Vol rate/Area] The eGFR should be used for monitoring renal function only and not for medication dosing. [facility] GFR/1.73 sq M.predicted CKD-EPI (S/P/Bld) [Vol rate/Area] 86 >=60 mL/min/1.73 m2 [facility] Glucose [Mass/Vol] 136 mg/dL High 65 - 99 mg/dL [facility] HCO3 [Moles/Vol] 27 mmol/L 21 - 32 mmol/L [facility] Interpretation and review of laboratory results Abnormal [facility] Potassium [Moles/Vol] 3.8 mmol/L 3.5 - 5.1 mmol/L [facility] Sodium [Moles/Vol] 137 mmol/L 135 - 145 mmol/L [facility] Urea nitrogen [Mass/Vol] 12 mg/dL 8 - 25 mg/dL [facility] Urea nitrogen/Creatinine [Mass ratio] 12.1 mg/mg [facility] CBCon 11-18-2020 Erythrocyte distribution width (RBC) [Entitic vol] 15.9 % High 11.6 - 14.8 % [facility] Hematocrit (Bld) [Volume fraction] 36.5 % Low 41 - 53 % [facility] Hemoglobin (Bld) [Mass/Vol] 10.9 g/dL Low 13.5 - 17.5 g/dL [facility] Interpretation and review of laboratory results Abnormal [facility] MCH (RBC) [Entitic mass] 25.6 pg Low 26 - 34 pg [facility] MCHC (RBC) [Mass/Vol] 29.9 g/dL Low 31 - 37 g/dL [facility] MCV (RBC) [Entitic vol] 85.9 fL 80 - 100 fL [facility] Nucleated RBC (Bld) [#/Vol] 0.00 10*3/uL [facility] Nucleated RBC/100 WBC (Bld) [Ratio] 0.0 % [facility] Platelet mean volume (Bld) [Entitic vol] 10.2 fL 9.4 - 12.4 fL [facility] Platelets (Bld) [#/Vol] 581 10*3/uL High [facility] RBC (Bld) [#/Vol] 4.25 10*6/uL Low [facility] WBC (Bld) [#/Vol] 8.56 10*3/uL [facility] CRP, Inflammationon 11-18-20 20 CRP [Mass/Vol] 132.0 mg/L High <=10.0 [facility] Interpretation and review of laboratory results Abnormal [facility] Magnesium Levelon 11-18-2020 Interpretation and review of laboratory results Normal [facility] Magnesium [Mass/Vol] 1.8 mg/dL 1.6 - 2 .4 mg/dL [facility] POC Glucoseon 11-18-2020 Glucose [Mass/Vol] 175 mg/dL High 65 - 99 mg/dL [facility] Interpretation and review of laboratory results Abnormal [facility] Glucose [Mass/Vol] 111 mg/dL High 65 - 99 mg/dL [facility] Interpretation and review of laboratory results Abnormal [facility] Glucose [Mass/Vol] 133 mg/dL High 65 - 99 mg/dL [facility] Interpretation and review of laboratory results Abnormal [facility] Glucose [Mass/Vol] 154 mg/dL High 65 - 99 mg/dL [facility] Interpretation and review of laboratory results Abnormal [facility] Sedimentation Rateon 020 ESR (Bld) [Velocity] 110 mm/h High [facility] Interpretation and review of laboratory results Abnormal [facility] APTTon 11-17-2020 aPTT Coag (Bld) [Time] Therapeutic range for APTT's is 68 - 104 seconds [facility] aPTT Coag (Bld) [Time] 32 s [facility] Interpretation and review of laboratory results Normal [facility] Basic Metabolic Panelon 10-23 Anion gap [Moles/Vol] 9 mmol/L Low 10 - 2 0 mmol/L [facility] Calcium [Mass/Vol] 8.6 mg/dL 8.4 - 10. 2 mg/dL [facility] Chloride [Moles/Vol] 105 mmol/L 98 - 10 8 mmol/L [facility] Creatinine [Mass/Vol] 0.94 mg/dL 0.50 - 1.30 [facility] GFR/1.73 sq M predicted among non-blacks MDRD (S/P/Bld) [Vol rate/Area] The eGFR should be used for monitoring renal function only and not for medication dosing. [facility] GFR/1.73 sq M.predicted CKD-EPI (S/P/Bld) [Vol rate/Area] 92 >=60 mL/min/1.73 m2 [facility] Glucose [Mass/Vol] 86 mg/dL 65 - 99 mg/dL [facility] HCO3 [Moles/Vol] 26 mmol/L 21 - 32 mmol/L [facility] Interpretation and review of laboratory results Abnormal [facility] Potassium [Moles/Vol] 3.9 mmol/L 3.5 - 5.1 mmol/L [facility] Sodium [Moles/Vol] 136 mmol/L 135 - 145 mmol/L [facility] Urea nitrogen [Mass/Vol] 11 mg/dL 8 - 25 mg/dL [facility] Urea nitrogen/Creatinine [Mass ratio] 11.7 mg/mg [facility] CBC WITH AUTO DIFFERENTIALon 11-17-2020 Basophils (Bld) [#/Vol] 0.07 10*3/uL [facility] Basophils/100 WBC (Bld) 0.7 % [facility] Eosinophils (Bld) [#/Vol] 0.21 10*3/uL [facility] Eosinophils/100 WBC (Bld) 2.2 % [facility] Erythrocyte distribution width (RBC) [Entitic vol] 15.9 % High 11.6 - 14.8 % [facility] Hematocrit (Bld) [Volume fraction] 36.4 % Low 41 - 53 % [facility] Hemoglobin (Bld) [Mass/Vol] 11.0 g/dL Low 13.5 - 17.5 g/dL [facility] Immature granulocytes (Bld) [#/Vol] 0.11 10*3/uL [facility] Immature granulocytes/100 WBC (Bld) 1.20 % [facility] Comment on above: The IG parameter is the percentage of metamyelocytes, myelocytes and promyelocytes. An immature granulocyte count (IG) of 1% or more suggests the possibility of infection, an IG count of 3% is very likely related to an infection. Interpretation and review of laboratory results Abnormal [facility] Lymphocytes (Bld) [#/Vol] 2.31 10*3/uL [facility] Lymphocytes/100 WBC (Bld) 24.6 % [facility] MCH (RBC) [Entitic mass] 25.8 pg Low 26 - 34 pg [facility] MCHC (RBC) [Mass/Vol] 30.2 g/dL Low 31 - 37 g/dL [facility] MCV (RBC) [Entitic vol] 85.4 fL 80 - 100 fL [facility] Monocytes (Bld) [#/Vol] 0.92 10*3/uL High [facility] Monocytes/100 WBC (Bld) 9.8 % [facility] Neutrophils (Bld) [#/Vol] 5.78 10*3/uL [facility] Neutrophils/100 WBC (Bld) 61.5 % [facility] Nucleated RBC (Bld) [#/Vol] 0.00 10*3/uL [facility] Nucleated RBC/100 WBC (Bld) [Ratio] 0.0 % [facility] Platelet mean volume (Bld) [Entitic vol] 10.2 fL 9.4 - 12.4 fL [facility] Platelets (Bld) [#/Vol] 644 10*3/uL High [facility] RBC (Bld) [#/Vol] 4.26 10*6/uL Low [facility] WBC (Bld) [#/Vol] 9.40 10*3/uL [facility] Magnesium Levelon 11-17-2020 Interpretation and review of laboratory results Normal [facility] Magnesium [Mass/Vol] 1.8 mg/dL 1.6 - 2 .4 mg/dL [facility] POC Glucoseon 11-17-2020 Glucose [Mass/Vol] 192 mg/dL High 65 - 99 mg/dL [facility] Interpretation and review of laboratory results Abnormal [facility] Glucose [Mass/Vol] 132 mg/dL High 65 - 99 mg/dL [facility] Interpretation and review of laboratory results Abnormal [facility] Glucose [Mass/Vol] 148 mg/dL High 65 - 99 mg/dL [facility] Interpretation and review of laboratory results Abnormal [facility] Glucose [Mass/Vol] 94 mg/dL 65 - 99 mg/dL [facility] Interpretation and review of laboratory results Normal [facility] Basic Metabolic Panelon 10-23 Anion gap [Moles/Vol] 8 mmol/L Low 10 - 2 0 mmol/L [facility] Calcium [Mass/Vol] 8.6 mg/dL 8.4 - 10. 2 mg/dL [facility] Chloride [Moles/Vol] 104 mmol/L 98 - 10 8 mmol/L [facility] Creatinine [Mass/Vol] 1.03 mg/dL 0.50 - 1.30 [facility] GFR/1.73 sq M predicted among non-blacks MDRD (S/P/Bld) [Vol rate/Area] The eGFR should be used for monitoring renal function only and not for medication dosing. [facility] GFR/1.73 sq M.predicted CKD-EPI (S/P/Bld) [Vol rate/Area] 82 >=60 mL/min/1.73 m2 [facility] Glucose [Mass/Vol] 103 mg/dL High 65 - 99 mg/dL [facility] HCO3 [Moles/Vol] 30 mmol/L 21 - 32 mmol/L [facility] Interpretation and review of laboratory results Abnormal [facility] Potassium [Moles/Vol] 3.7 mmol/L 3.5 - 5.1 mmol/L [facility] Sodium [Moles/Vol] 138 mmol/L 135 - 145 mmol/L [facility] Urea nitrogen [Mass/Vol] 10 mg/dL 8 - 25 mg/dL [facility] Urea nitrogen/Creatinine [Mass ratio] 9.7 mg/mg Low [facility] Bone Anaerobic Cultureon Bacteria identified Anaer cx Nom (Unsp spec) No Anaerobic Growth at 5 Days [facility] CBCon 11-16-2020 Erythrocyte distribution width (RBC) [Entitic vol] 15.9 % High 11.6 - 14.8 % [facility] Hematocrit (Bld) [Volume fraction] 35.7 % Low 41 - 53 % [facility] Hemoglobin (Bld) [Mass/Vol] 10.8 g/dL Low 13.5 - 17.5 g/dL [facility] Interpretation and review of laboratory results Abnormal [facility] MCH (RBC) [Entitic mass] 25.5 pg Low 26 - 34 pg [facility] MCHC (RBC) [Mass/Vol] 30.3 g/dL Low 31 - 37 g/dL [facility] MCV (RBC) [Entitic vol] 84.2 fL 80 - 100 fL [facility] Nucleated RBC (Bld) [#/Vol] 0.00 10*3/uL [facility] Nucleated RBC/100 WBC (Bld) [Ratio] 0.0 % [facility] Platelet mean volume (Bld) [Entitic vol] 10.2 fL 9.4 - 12.4 fL [facility] Platelets (Bld) [#/Vol] 658 10*3/uL High [facility] RBC (Bld) [#/Vol] 4.24 10*6/uL Low [facility] WBC (Bld) [#/Vol] 9.26 10*3/uL [facility] Magnesium Levelon 11-16-2020 Interpretation and review of laboratory results Normal [facility] Magnesium [Mass/Vol] 1.8 mg/dL 1.6 - 2 .4 mg/dL [facility] POC Glucoseon 11-16-2020 Glucose [Mass/Vol] 157 mg/dL High 65 - 99 mg/dL [facility] Interpretation and review of laboratory results Abnormal [facility] Glucose [Mass/Vol] 105 mg/dL High 65 - 99 mg/dL [facility] Interpretation and review of laboratory results Abnormal [facility] Glucose [Mass/Vol] 147 mg/dL High 65 - 99 mg/dL [facility] Interpretation and review of laboratory results Abnormal [facility] Glucose [Mass/Vol] 100 mg/dL High 65 - 99 mg/dL [facility] Interpretation and review of laboratory results Abnormal [facility] Sedimentation Rateon 020 ESR (Bld) [Velocity] 113 mm/h High [facility] Interpretation and review of laboratory results Abnormal [facility] Basic Metabolic Panelon 10-23 Anion gap [Moles/Vol] 9 mmol/L Low 10 - 2 0 mmol/L [facility] Calcium [Mass/Vol] 8.4 mg/dL 8.4 - 10. 2 mg/dL [facility] Chloride [Moles/Vol] 106 mmol/L 98 - 10 8 mmol/L [facility] Creatinine [Mass/Vol] 0.89 mg/dL 0.50 - 1.30 [facility] GFR/1.73 sq M predicted among non-blacks MDRD (S/P/Bld) [Vol rate/Area] The eGFR should be used for monitoring renal function only and not for medication dosing. [facility] GFR/1.73 sq M.predicted CKD-EPI (S/P/Bld) [Vol rate/Area] 97 >=60 mL/min/1.73 m2 [facility] Glucose [Mass/Vol] 139 mg/dL High 65 - 99 mg/dL [facility] HCO3 [Moles/Vol] 26 mmol/L 21 - 32 mmol/L [facility] Interpretation and review of laboratory results Abnormal [facility] Potassium [Moles/Vol] 3.7 mmol/L 3.5 - 5.1 mmol/L [facility] Sodium [Moles/Vol] 137 mmol/L 135 - 145 mmol/L [facility] Urea nitrogen [Mass/Vol] 14 mg/dL 8 - 25 mg/dL [facility] Urea nitrogen/Creatinine [Mass ratio] 15.7 mg/mg [facility] Bone Aerobic Cultureon 11-15 Bacteria identified Aer cx Nom (Bone) Rare growth Staphylococcus aureus Abnormal [facility] Comment on above: This Staphylococcus aureus is Methicillin SUSCEPTIBLE by PBP2a testing. Beta-lactams like Cefazolin and Nafcillin are superior to Vancomycin for treating mSsa. Interpretation and review of laboratory results Abnormal [facility] Microscopic observation Gram stain Nom (Unsp spec) No Organisms Seen [facility] Microscopic observation Gram stain Nom (Unsp spec) Rare WBC [facility] Microscopic observation Gram stain Nom (Unsp spec) No Epithelial Cells Seen [facility] CBCon 11-15-2020 Erythrocyte distribution width (RBC) [Entitic vol] 15.9 % High 11.6 - 14.8 % [facility] Hematocrit (Bld) [Volume fraction] 34.1 % Low 41 - 53 % [facility] Hemoglobin (Bld) [Mass/Vol] 10.5 g/dL Low 13.5 - 17.5 g/dL [facility] Interpretation and review of laboratory results Abnormal [facility] MCH (RBC) [Entitic mass] 25.9 pg Low 26 - 34 pg [facility] MCHC (RBC) [Mass/Vol] 30.8 g/dL Low 31 - 37 g/dL [facility] MCV (RBC) [Entitic vol] 84.2 fL 80 - 100 fL [facility] Nucleated RBC (Bld) [#/Vol] 0.00 10*3/uL [facility] Nucleated RBC/100 WBC (Bld) [Ratio] 0.0 % [facility] Platelet mean volume (Bld) [Entitic vol] 9.8 fL 9.4 - 12.4 fL [facility] Platelets (Bld) [#/Vol] 633 10*3/uL High [facility] RBC (Bld) [#/Vol] 4.05 10*6/uL Low [facility] WBC (Bld) [#/Vol] 8.97 10*3/uL [facility] CT ABDOMEN PELVIS WITHOUT CO NTRASTon 11-15-2020 CT ABDOMEN PELVIS WITHOUT CONTRAST EXAMINATION: CT ABDOMEN PELVIS WITHOUT CONTRAST - 11/15/2020 COMPARISON: CT angiogram chest from [place] dated 11/05/2020. No prior CT imaging of the abdomen and pelvis. ADDITIONAL HISTORY: Abdominal pain TECHNIQUE: Helical images were obtained through the abdomen and pelvis without IV contrast and without oral contrast. Multiplanar reconstructions were created. Dose reduction techniques were achieved by using automated exposure control and/or adjustment of mA and/or kV according to patient size and/or use of iterative reconstruction technique. FINDINGS: ABDOMEN CT: The heart is normal in size. The abdominal aorta normal in caliber. There is mild dependent and plate-like atelectasis in both lower lobes. There are trace bilateral pleural effusions. There is a nonobstructing 3 mm calculus in the lower pole of the right kidney and a nonobstructing 1-2 mm calculus in the lower pole of the left kidney. No obstructing calculi or significant hydronephrosis is identified. No perinephric fluid collections or ascites. There is vlrqxtes-md-rajen amount of retained stool in the proximal colon and jihfo-hg-oeqjuqwa amount of retained stool in the distal colon. No dilated bowel loops or evidence of a bowel obstruction. No free intraperitoneal gas or pneumatosis intestinalis is identified. No significant abnormalities identified in the liver, pancreas, adrenal glands, or spleen. There is a small to moderate amount of intermediate density material in the dependent aspect of the gallbladder that could be related to sludge or gallstones. No gallbladder wall thickening, pericholecystic fluid, or biliary ductal dilatation is identified. No lymphadenopathy is identified. PELVIC CT: No calculi are seen in the bladder or distal ureters. The prostate is top-normal in size. The appendix is clearly seen and appears normal. There is a redundant sigmoid colon, extending into the left upper quadrant. No evidence of a distal colitis or diverticulitis. There are an increased number of borderline enlarged lymph nodes along the common iliac and external iliac chains as well as borderline enlarged inguinal lymph nodes bilaterally. One of the more prominent lymph nodes adjacent to the distal left external iliac vessels measures 1.1 x 1.7 cm. Another 1 of the more prominent lymph nodes in the left inguinal region measures 0.9 x 1.6 cm. Mild degenerative changes are noted in the spine. No suspicious osseous lesions. IMPRESSION: 1. Single bilateral punctate nonobstructing renal calculi. No evidence of an obstructive uropathy. 2. Moderate-large amount of retained stool in the proximal colon and qijfs-tf-oxzvvbve amount of retained stool in the distal colon, which could be related to a mild colonic ileus. No evidence of a bowel obstruction. 3. Mild pelvic and inguinal lymphadenopathy that may be reactive. 4. Questionable sludge or gallstones in the gallbladder. No evidence of cholecystitis. 5. Trace pleural effusions and mild atelectasis in both lung bases. [employer] Workstation ID: [id number] Dictated by: AMNA PEÑA on WedNov 15, 2020 2:11:25 PM EST Transcribed by: LUTHER TREJO on WedNov 15, 2020 2:15:19 PM EST Finalized by: AMNA PEÑA on WedNov 15, 2020 2:30:12 PM EST Normal [facility] Comment on above: Order Comment: Injur y/Trauma or Illness?:Illness/Other How long have you had these symptoms (acute/chronic)?:Acute Reason for exam?:non healing wound on top of foot History of cancer?: Surgeries, chemotherapy, or radiation?: Type of Exam?:Initial Additional signs and symptoms?:pain CT Abdomen Pelvis Without Co ntraston 11-15-2020 Interface, Rad In Fu ji [place] - 11/15/2020 2:32 PM EST EXAMINATION: CT ABDOMEN PELVIS WITHOUT CONTRAST - 11/15/2020 COMPARISON: CT angiogram chest from [place] dated 11/05/2020. No prior CT imaging of the abdomen and pelvis. ADDITIONAL HISTORY: Abdominal pain TECHNIQUE: Helical images were obtained through the abdomen and pelvis without IV contrast and without oral contrast. Multiplanar reconstructions were created. Dose reduction techniques were achieved by using automated exposure control and/or adjustment of mA and/or kV according to patient size and/or use of iterative reconstruction technique. FINDINGS: ABDOMEN CT: The heart is normal in size. The abdominal aorta normal in caliber. There is mild dependent and plate-like atelectasis in both lower lobes. There are trace bilateral pleural effusions. There is a nonobstructing 3 mm calculus in the lower pole of the right kidney and a nonobstructing 1-2 mm calculus in the lower pole of the left kidney. No obstructing calculi or significant hydronephrosis is identified. No perinephric fluid collections or ascites. There is olwvfqws-zb-yxklw amount of retained stool in the proximal colon and jjuka-hi-dmzcuypm amount of retained stool in the distal colon. No dilated bowel loops or evidence of a bowel obstruction. No free intraperitoneal gas or pneumatosis intestinalis is identified. No significant abnormalities identified in the liver, pancreas, adrenal glands, or spleen. There is a small to moderate amount of intermediate density material in the dependent aspect of the gallbladder that could be related to sludge or gallstones. No gallbladder wall thickening, pericholecystic fluid, or biliary ductal dilatation is identified. No lymphadenopathy is identified. PELVIC CT: No calculi are seen in the bladder or distal ureters. The prostate is top-normal in size. The appendix is clearly seen and appears normal. There is a redundant sigmoid colon, extending into the left upper quadrant. No evidence of a distal colitis or diverticulitis. There are an increased number of borderline enlarged lymph nodes along the common iliac and external iliac chains as well as borderline enlarged inguinal lymph nodes bilaterally. One of the more prominent lymph nodes adjacent to the distal left external iliac vessels measures 1.1 x 1.7 cm. Another 1 of the more prominent lymph nodes in the left inguinal region measures 0.9 x 1.6 cm. Mild degenerative changes are noted in the spine. No suspicious osseous lesions. IMPRESSION: 1. Single bilateral punctate nonobstructing renal calculi. No evidence of an obstructive uropathy. 2. Moderate-large amount of retained stool in the proximal colon and ysvzf-am-ddanqact amount of retained stool in the distal colon, which could be related to a mild colonic ileus. No evidence of a bowel obstruction. 3. Mild pelvic and inguinal lymphadenopathy that may be reactive. 4. Questionable sludge or gallstones in the gallbladder. No evidence of cholecystitis. 5. Trace pleural effusions and mild atelectasis in both lung bases. [employer] Workstation ID: [id number] [facility] EXAMINATION: CT ABDOMEN PELVIS WITHOUT CONTRAST - 11/15/2020 COMPARISON: CT angiogram chest from [place] dated 11/05/2020. No prior CT imaging of the abdomen and pelvis. ADDITIONAL HISTORY: Abdominal pain TECHNIQUE: Helical images were obtained through the abdomen and pelvis without IV contrast and without oral contrast. Multiplanar reconstructions were created. Dose reduction techniques were achieved by using automated exposure control and/or adjustment of mA and/or kV according to patient size and/or use of iterative reconstruction technique. FINDINGS: ABDOMEN CT: The heart is normal in size. The abdominal aorta normal in caliber. There is mild dependent and plate-like atelectasis in both lower lobes. There are trace bilateral pleural effusions. There is a nonobstructing 3 mm calculus in the lower pole of the right kidney and a nonobstructing 1-2 mm calculus in the lower pole of the left kidney. No obstructing calculi or significant hydronephrosis is identified. No perinephric fluid collections or ascites. There is wcujrgqr-wd-mkjuf amount of retained stool in the proximal colon and gmiac-nl-sfjrqgok amount of retained stool in the distal colon. No dilated bowel loops or evidence of a bowel obstruction. No free intraperitoneal gas or pneumatosis intestinalis is identified. No significant abnormalities identified in the liver, pancreas, adrenal glands, or spleen. There is a small to moderate amount of intermediate density material in the dependent aspect of the gallbladder that could be related to sludge or gallstones. No gallbladder wall thickening, pericholecystic fluid, or biliary ductal dilatation is identified. No lymphadenopathy is identified. PELVIC CT: No calculi are seen in the bladder or distal ureters. The prostate is top-normal in size. The appendix is clearly seen and appears normal. There is a redundant sigmoid colon, extending into the left upper quadrant. No evidence of a distal colitis or diverticulitis. There are an increased number of borderline enlarged lymph nodes along the common iliac and external iliac chains as well as borderline enlarged inguinal lymph nodes bilaterally. One of the more prominent lymph nodes adjacent to the distal left external iliac vessels measures 1.1 x 1.7 cm. Another 1 of the more prominent lymph nodes in the left inguinal region measures 0.9 x 1.6 cm. Mild degenerative changes are noted in the spine. No suspicious osseous lesions. [facility] 1. Single bilateral punctate nonobstructing renal calculi. No evidence of an obstructive uropathy. 2. Moderate-large amount of retained stool in the proximal colon and gilnd-rk-dbxkdfuc amount of retained stool in the distal colon, which could be related to a mild colonic ileus. No evidence of a bowel obstruction. 3. Mild pelvic and inguinal lymphadenopathy that may be reactive. 4. Questionable sludge or gallstones in the gallbladder. No evidence of cholecystitis. 5. Trace pleural effusions and mild atelectasis in both lung bases. [employer] Workstation ID: [id number] [facility] Magnesium Levelon 11-15-2020 Interpretation and review of laboratory results Normal [facility] Magnesium [Mass/Vol] 1.9 mg/dL 1.6 - 2 .4 mg/dL [facility] POC Glucoseon 11-15-2020 Glucose [Mass/Vol] 171 mg/dL High 65 - 99 mg/dL [facility] Interpretation and review of laboratory results Abnormal [facility] Glucose [Mass/Vol] 122 mg/dL High 65 - 99 mg/dL [facility] Interpretation and review of laboratory results Abnormal [facility] Glucose [Mass/Vol] 129 mg/dL High 65 - 99 mg/dL [facility] Interpretation and review of laboratory results Abnormal [facility] Glucose [Mass/Vol] 142 mg/dL High 65 - 99 mg/dL [facility] Interpretation and review of laboratory results Abnormal [facility] XR FOOT LEFT 3+ VIEWS (STAND ZAHRA)on 11-15-2020 XR FOOT LEFT 3+ VIEWS (STANDARD) EXAMINATION: XR FOOT LEFT 3+ VIEWS (STANDARD) HISTORY: M, 55 y/o , ulcer left foot COMPARISON: MRI 11/06/2020 TECHNIQUE: Three views of the left foot are performed. FINDINGS: Extensive ulceration is seen overlying the dorsum of the foot. There is some gas within the soft tissues.There are degenerative changes within the midfoot. Severe degenerative changes are seen at the 1st metatarsophalangeal joint. No definite bony erosion or fracture. There is a plantar calcaneal spur. IMPRESSION: Large ulceration overlying the dorsum of the foot. Degenerative changes. No definite bony erosion or fracture. Workstation ID: [id number] Dictated by: VANDANA REILLY on WedNov 15, 2020 7:35:52 PM EST Transcribed by: VANDANA REILLY on WedNov 15, 2020 7:35:52 PM EST Finalized by: VANDANA REILLY on WedNov 15, 2020 7:35:52 PM EST Normal [facility] Comment on above: Order Comment: Injur y/Trauma or Illness?:Illness/Other How long have you had these symptoms (acute/chronic)?:Chronic Reason for exam?:NON HEALING WOND ANTERIOR FOOT History of cancer?: Surgeries, chemotherapy, or radiation?: Type of Exam?:Unknown Additional signs and symptoms?:DIABETES Large ulceration overlying the dorsum of the foot. Degenerative changes. No definite bony erosion or fracture. Workstation ID: [id number] [facility] EXAMINATION: XR FOOT LEFT 3+ VIEWS (STANDARD) HISTORY: M, 55 y/o , ulcer left foot COMPARISON: MRI 11/06/2020 TECHNIQUE: Three views of the left foot are performed. FINDINGS: Extensive ulceration is seen overlying the dorsum of the foot. There is some gas within the soft tissues.There are degenerative changes within the midfoot. Severe degenerative changes are seen at the 1st metatarsophalangeal joint. No definite bony erosion or fracture. There is a plantar calcaneal spur. [facility] Interface, Rad In Fu ji Speechq - 11/15/2020 7:38 PM EST EXAMINATION: XR FOOT LEFT 3+ VIEWS (STANDARD) HISTORY: M, 55 y/o , ulcer left foot COMPARISON: MRI 11/06/2020 TECHNIQUE: Three views of the left foot are performed. FINDINGS: Extensive ulceration is seen overlying the dorsum of the foot. There is some gas within the soft tissues.There are degenerative changes within the midfoot. Severe degenerative changes are seen at the 1st metatarsophalangeal joint. No definite bony erosion or fracture. There is a plantar calcaneal spur. IMPRESSION: Large ulceration overlying the dorsum of the foot. Degenerative changes. No definite bony erosion or fracture. Workstation ID: [id number] [facility] Basic Metabolic Panelon 10-23 Anion gap [Moles/Vol] 8 mmol/L Low 10 - 2 0 mmol/L [facility] Calcium [Mass/Vol] 7.9 mg/dL Low 8.4 - 10. 2 mg/dL [facility] Chloride [Moles/Vol] 105 mmol/L 98 - 10 8 mmol/L [facility] Creatinine [Mass/Vol] 0.97 mg/dL 0.50 - 1.30 [facility] GFR/1.73 sq M predicted among non-blacks MDRD (S/P/Bld) [Vol rate/Area] The eGFR should be used for monitoring renal function only and not for medication dosing. [facility] GFR/1.73 sq M.predicted CKD-EPI (S/P/Bld) [Vol rate/Area] 88 >=60 mL/min/1.73 m2 [facility] Glucose [Mass/Vol] 153 mg/dL High 65 - 99 mg/dL [facility] HCO3 [Moles/Vol] 26 mmol/L 21 - 32 mmol/L [facility] Interpretation and review of laboratory results Abnormal [facility] Potassium [Moles/Vol] 4.0 mmol/L 3.5 - 5.1 mmol/L [facility] Sodium [Moles/Vol] 135 mmol/L 135 - 145 mmol/L [facility] Urea nitrogen [Mass/Vol] 14 mg/dL 8 - 25 mg/dL [facility] Urea nitrogen/Creatinine [Mass ratio] 14.4 mg/mg [facility] CBCon 11-14-2020 Erythrocyte distribution width (RBC) [Entitic vol] 16.1 % High 11.6 - 14.8 % [facility] Hematocrit (Bld) [Volume fraction] 33.3 % Low 41 - 53 % [facility] Hemoglobin (Bld) [Mass/Vol] 10.0 g/dL Low 13.5 - 17.5 g/dL [facility] Interpretation and review of laboratory results Abnormal [facility] MCH (RBC) [Entitic mass] 25.3 pg Low 26 - 34 pg [facility] MCHC (RBC) [Mass/Vol] 30.0 g/dL Low 31 - 37 g/dL [facility] MCV (RBC) [Entitic vol] 84.1 fL 80 - 100 fL [facility] Nucleated RBC (Bld) [#/Vol] 0.00 10*3/uL [facility] Nucleated RBC/100 WBC (Bld) [Ratio] 0.0 % [facility] Platelet mean volume (Bld) [Entitic vol] 10.4 fL 9.4 - 12.4 fL [facility] Platelets (Bld) [#/Vol] 583 10*3/uL High [facility] RBC (Bld) [#/Vol] 3.96 10*6/uL Low [facility] ealth WBC (Bld) [#/Vol] 10.09 10*3/uL [facility] Magnesium Levelon 11-14-2020 Interpretation and review of laboratory results Normal [facility] Magnesium [Mass/Vol] 1.9 mg/dL 1.6 - 2 .4 mg/dL [facility] POC Glucoseon 11-14-2020 Glucose [Mass/Vol] 160 mg/dL High 65 - 99 mg/dL [facility] Interpretation and review of laboratory results Abnormal [facility] Glucose [Mass/Vol] 151 mg/dL High 65 - 99 mg/dL [facility] Interpretation and review of laboratory results Abnormal [facility] Glucose [Mass/Vol] 142 mg/dL High 65 - 99 mg/dL [facility] Interpretation and review of laboratory results Abnormal [facility] Glucose [Mass/Vol] 138 mg/dL High 65 - 99 mg/dL [facility] Interpretation and review of laboratory results Abnormal [facility] Basic Metabolic Panelon 10-23 Anion gap [Moles/Vol] 8 mmol/L Low 10 - 2 0 mmol/L [facility] Calcium [Mass/Vol] 7.8 mg/dL Low 8.4 - 10. 2 mg/dL [facility] Chloride [Moles/Vol] 105 mmol/L 98 - 10 8 mmol/L [facility] Creatinine [Mass/Vol] 0.85 mg/dL 0.50 - 1.30 [facility] GFR/1.73 sq M predicted among non-blacks MDRD (S/P/Bld) [Vol rate/Area] The eGFR should be used for monitoring renal function only and not for medication dosing. [facility] GFR/1.73 sq M.predicted CKD-EPI (S/P/Bld) [Vol rate/Area] 99 >=60 mL/min/1.73 m2 [facility] Glucose [Mass/Vol] 176 mg/dL High 65 - 99 mg/dL [facility] HCO3 [Moles/Vol] 26 mmol/L 21 - 32 mmol/L [facility] Interpretation and review of laboratory results Abnormal [facility] Potassium [Moles/Vol] 4.0 mmol/L 3.5 - 5.1 mmol/L [facility] Sodium [Moles/Vol] 135 mmol/L 135 - 145 mmol/L [facility] Urea nitrogen [Mass/Vol] 13 mg/dL 8 - 25 mg/dL [facility] Urea nitrogen/Creatinine [Mass ratio] 15.3 mg/mg [facility] CBCon 11-13-2020 Erythrocyte distribution width (RBC) [Entitic vol] 16.0 % High 11.6 - 14.8 % [facility] Hematocrit (Bld) [Volume fraction] 32.7 % Low 41 - 53 % [facility] Hemoglobin (Bld) [Mass/Vol] 10.1 g/dL Low 13.5 - 17.5 g/dL [facility] Interpretation and review of laboratory results Abnormal [facility] MCH (RBC) [Entitic mass] 25.6 pg Low 26 - 34 pg [facility] MCHC (RBC) [Mass/Vol] 30.9 g/dL Low 31 - 37 g/dL [facility] MCV (RBC) [Entitic vol] 82.8 fL 80 - 100 fL [facility] Nucleated RBC (Bld) [#/Vol] 0.00 10*3/uL [facility] Nucleated RBC/100 WBC (Bld) [Ratio] 0.0 % [facility] Platelet mean volume (Bld) [Entitic vol] 10.4 fL 9.4 - 12.4 fL [facility] Platelets (Bld) [#/Vol] 545 10*3/uL High [facility] RBC (Bld) [#/Vol] 3.95 10*6/uL Low [facility] WBC (Bld) [#/Vol] 10.51 10*3/uL [facility] Magnesium Levelon 11-13-2020 Interpretation and review of laboratory results Normal [facility] Magnesium [Mass/Vol] 2.0 mg/dL 1.6 - 2 .4 mg/dL [facility] NM Gastric Emptyingon 2019 Delayed gastric emptying. Workstation ID: [id number] [facility] Interface, Rad In Fu ji Speechq - 11/13/2020 1:36 PM EST EXAMINATION: DC GASTRIC EMPTYING HISTORY: Abdominal discomfort, nausea, vomiting and diabetes. TECHNIQUE: After the oral ingestion of a standardized meal consisting of egg substitute labeled with 1.3 mCi technetium-99m sulfur colloid, toast, jam and water, sequential anterior and posterior images were obtained through 4 hours. A region of interest was placed over the stomach and residual gastric activity was calculated at several time points using the geometric mean. COMPARISON: No relevant comparison available. FINDINGS: There is delayed emptying of the gastric contents into the intestine. Residual gastric activity is calculated as follows: 1 HOUR: 78% (normal range = 30-90%). 2 HOURS: 59% (normal range = 0-60%). 4 HOURS: 17% (normal range = 0-10%). IMPRESSION: Delayed gastric emptying. Workstation ID: [id number] [facility] EXAMINATION: NM GASTRIC EMPTYING HISTORY: Abdominal discomfort, nausea, vomiting and diabetes. TECHNIQUE: After the oral ingestion of a standardized meal consisting of egg substitute labeled with 1.3 mCi technetium-99m sulfur colloid, toast, jam and water, sequential anterior and posterior images were obtained through 4 hours. A region of interest was placed over the stomach and residual gastric activity was calculated at several time points using the geometric mean. COMPARISON: No relevant comparison available. FINDINGS: There is delayed emptying of the gastric contents into the intestine. Residual gastric activity is calculated as follows: 1 HOUR: 78% (normal range = 30-90%). 2 HOURS: 59% (normal range = 0-60%). 4 HOURS: 17% (normal range = 0-10%). [facility] POC Glucoseon 11-13-2020 Glucose [Mass/Vol] 189 mg/dL High 65 - 99 mg/dL [facility] Interpretation and review of laboratory results Abnormal [facility] Glucose [Mass/Vol] 186 mg/dL High 65 - 99 mg/dL [facility] Interpretation and review of laboratory results Abnormal [facility] Glucose [Mass/Vol] 221 mg/dL High 65 - 99 mg/dL [facility] Interpretation and review of laboratory results Abnormal [facility] Glucose [Mass/Vol] 162 mg/dL High 65 - 99 mg/dL [facility] Interpretation and review of laboratory results Abnormal [facility] TISSUE EXAMon 11-13-2020 Case Report Surgical Pathology Report Case: [id number] Authorizing Provider: Leanne Cherry DPM Collected: 11/11/2020 04:44 PM Ordering Location: [facility] Periop Received: 11/12/2020 09:31 AM Pathologist: Joni Perez DO Specimen: Foot, Left [facility] Pathology report final diagnosis Narrative n6qjlNMlGCVvvLF4GnMsHS Lmd6lht9LhyFFprRYcESan jNNbawTvma88zCQ7gL97WA 5oZSLbYwV2GRFzcjS9Wno4 KRBtHHPleVZvB680g9gir9 ypmuMobOC3zNyqEKBzTFEq YWluXGJcZnMyMCBBLiAgQm 9uZSBmcmFnbWVudCwgTGVm uCAVw637KVSqeMFps3veqt sciTFsMOZpqgIklIj2YmMj bGluNzIwXGIwIEFjdXRlIG 1cnBOfxTaymSp0mLHrDEKe clxwYXJkXHBhcn0= [facility] Pathology report gross observation Narrative m6kdpQMnLGFsaMY7ApKyFR Mqa4yyv5OezYWdiVYlYLsu bAFvocCfok06zVS7oX77DM 9nTJTtZiJ3ZQIuayS5Wzv6 EYWtUZUizBAzM946x8chw1 ogklSifFT1aWooLPOpIRJp CAxdYXQnGrGfGrDvAWs5PO KctT3hDi3lmKKefN6dONIk r8lloeS3PGBaAbXkQl8nhV ohDDZryCTQh82oLcktDLAd o0SlL3H6QDGgBAeyh9llSH FoLFqtb6QsXExARVRPBS9O LO0nqZI2TBbQQPMCW1dFfF C9OLNcjJI8RX48GFJdEBXw gTBeFWmlR779rKFnBGibOr wwvSR5OBpbTnuumA6jnMYR QFCRHmnTBjgpscAgHX8WPT KGGS5YjUB4MDVaiOP2RR11 ULMeCBRqnGFoDLfgM369HG BsYWluXGZzMjAgIGZyYWdt BB12QMIwTS5eNXSfwsNhcW Qiw6OhyG2sRXLvOKV5KFTd QbE7YOAvSxSmbQjeqe27HN H4t6ihuPFvLHttUqecqYUo kjR2VFuMVEWOIXgRYrHjTC 7aRYtQF0FIATzDBeugBVR0 Y6dvpNF7b9mgcUNef5a9TX xfEDF3fY41HDHnZYamr3qh ZZWsJOhnf7UrGSeWOUXVXC 3TYO8gyMN5QFiLSPHYKPod SNB8Y9wxxDE3w5zpyTSog9 o6FIsjYJP9xTfiuNOocpym oaWuOKUnT3WxrVk7xFPfAO ZvciBkZWNhbGNpZmljYXRp j21oIHTSg4QfkTi9QUN8Iv 4drEEuWXBsekMtHCSuy4Ba dHRlKHMpLlxwYXJccGFyZF oiXAKcU2EhfYGkATgat2Zf LJJ8RG8wccW4nR3mMCYkly Mebw9qTEHweImuLUXlo1Dt DIgnPAokm1QbpUVqJF8vHo I0LIqsYGPnrhMbBXQ4AB27 TRKCMD2wGywfkDQoQL3RYS E8OZKeXIurWSPomMMoYGUq W22XBqDDNIJAQ43HVUUHNM OHB9HDA1lYKOY4KZTkuOO6 WQ1kVGA3Y2bxADAoL65KKi HGGDAQH43ZMHQQGJVNT5PH OPUOCLpCK9FZXQ4IDRUTZM QVIY3EMFtKUaGDNSqDV0NV MO8LZNVWSRFIUH0JBbOdNK mJL9MSG3eDHYIgCMASJWJM ESQrGhXUEH6sCJf0MGGrfG 1fJMDnVCL8SvOdUSY8Kprv DL0hUGlBNONaeyHeR1adYM ddiVN4NvUvNJF4OrglCF7m QPaUN4WVB8pAQVQjPQPGSM YKXPTtYW0ZMVtTMY5PXGUc IUHIMHNNZKOsCuNFUD9gWE sNOW0JCUCjHEGAOMKQQWRp WV7ZLCALYA2IBZBAGSTOV3 2XIOBFGCXVX3KNB5mEXRUW KDYAQyHPIwRCAG2CGTDTIG YAGD6NGkJ6 [facility] Pathology report microscopic observation Narrative Other stain p0ryzEBpCKVbgZLjNsNbLB UeYIAkj2ceUSSjfJIhHsZq MzNcZnRuYmpcdWMxXGRlZm Hyi0azt865fQAdo3lpYDMb UjW7cSEhKKCoiMYnY512FI GhPJmao0ybs6BiHBAewWYb l4I0PIZOimgugKx6pQctJ2 9no0I5KpqtG4mhBUEbEEQl Y0ReBA5wJYMkXmo4ROF8EL J6JICjRJNmG7OiEH7zCYOs aFVxBBj4f9mgoTniCAMnOI E0l4iwWVmlgtOyJJ5zdg3v qAt8k2melvEnYJHeBZFpuV SSPJEuF0PdbYilHn9auUz8 aFlmPptgHSZ8Mal4TN3iro 70gtv8vEpkSWDanjkfMiL7 DTguSYVwvnteFAj8FGppHG AscUE2SEBpgRSgR5DaFEIe GM2txya0AFL0DQweODYzNj D9OEImnBFaEHDdwOfuMBar i791PDC4BtDhYO1gO8Jyy4 Y7wX3epIPoMZFgsZIlBzVc TCGdkg4opJEdJAedt1MtRS T2rpU3vHYtxPAuYMTxZK66 Tpvks0QtNifwNKV1FGJvve Jlf8Tix0udAzSvjsOyY2mc G1KwMQXgXGBqUWAgPbUdnp Fnf9Wls3HhbGMtqGe8v7mf KKEpPWUodNszr5ehWUM6RZ UlC0V1cKMoz2djTJyjBKSs sDK0gjM3HYRisPFzH7GcyW 0jCDMgLU3bcsk0y2wiHCM8 KTtoKEHpYkM3igR8VHJsoR InDOKxcMofHQpyb836NEO5 YgGwSPPka1GgP2DfiOotJ9 1kgDpyX57pJYUqiLzcjD9h kWhkdK0lRxBfAxUsDVsrvF xwbGFpblxmMVxmczIwXGxh nnwxFXCoFJtaU6kkQtWpOL BlmRpdXFcvk2BlSLRlVEWj LmAsJSdvnp1bO98jfOTlJV srbSjqEFNti57lsHGjeEVc Hn4hfMWqWllnPSG6 [facility] US DOPPLER SEGMENTAL ARTERIA L LEGS BILATERALon 11-13-2020 US DOPPLER SEGMENTAL ARTERIAL LEGS BILATERAL Patient Info Name: MORE KINGSLEY Age: 55 years : 1965 Gender: Male Exam Date: 11/13/2020 8:13 AM Patient Status: Inpatient Breaker Machine Tender: Rafat Tony RVT Indications I73.9 - Peripheral vascular disease, unspecified Procedure Description 49062 Complete bilateral noninvasive physiologic studies of upper or lower extremity arteries with bidirectional Doppler/PVR waveform analysis at 3 or more levels. Conclusions * Right. * Right ankle brachial index is not accurate due to vessel wall calcification. Based on waveform criteria, this is a normal resting arterial evaluation. * No evidence of small vessel disease at the transmetatarsal level in the right foot. * Right toe brachial index not obtained due to amputation. * Left. * Left ankle brachial index is not accurate due to vessel wall calcification. Based on waveform criteria, this is a normal resting arterial evaluation. * Mild small vessel disease at the transmetatarsal level in the left foot. * Left toe brachial index is abnormal. Recommendations * This study has inaccurate ROMAN's bilaterally due to elevated segmental pressures as seen with arterial calcification. Doppler and PVR waveforms show satisfactory amplitude and patterns to the ankles, suggesting normal perfusion. Clinical correlation advised. . Doppler Rt Common Femoral: Triphasic Rt Popliteal: Triphasic Rt Posterior Tibial: Triphasic Rt Dorsalis Pedis: Triphasic Lt Common Femoral: Triphasic Lt Popliteal: Triphasic Lt Posterior Tibial: Triphasic Lt Dorsalis Pedis: Triphasic PVR Rt Thigh: Normal Rt Calf: Normal Rt Ankle: Normal Lt Thigh: Normal Lt Calf: Normal Lt Ankle: Normal Lt Digit: Diminished Rt Thigh: 157 Rt Calf: 162 Rt Posterior Tibial: 178 Rt Dorsalis Pedis: 181 1.16 1.20 1.32 1.34 Lt Brachial: 135 Lt Thigh: 180 Lt Calf: 174 Lt Posterior Tibial: 180 Lt Dorsalis Pedis: 169 Lt Digit: 72 1.33 1.29 1.33 1.25 0.53 Risk Factors Patient has a history of diabetes, hyperlipidemia, hypertension and obesity. . Report Signatures Finalized by ABILIO Gutiérrez DO on 11/13/2020 03:26 PM Normal [facility] Interface, Rad In [employer] [employer]ch[employer] - 11/13/2020 3:27 PM EST Patient Info Name: MORE KINGSLEY Age: 55 years : 1965 Gender: Male Exam Date: 11/13/2020 8:13 AM Patient Status: Inpatient Breaker Machine Tender: Rafat Tony RVT Indications I73.9 - Peripheral vascular disease, unspecified Procedure Description 34202 Complete bilateral noninvasive physiologic studies of upper or lower extremity arteries with bidirectional Doppler/PVR waveform analysis at 3 or more levels. Conclusions * Right. * Right ankle brachial index is not accurate due to vessel wall calcification. Based on waveform criteria, this is a normal resting arterial evaluation. * No evidence of small vessel disease at the transmetatarsal level in the right foot. * Right toe brachial index not obtained due to amputation. * Left. * Left ankle brachial index is not accurate due to vessel wall calcification. Based on waveform criteria, this is a normal resting arterial evaluation. * Mild small vessel disease at the transmetatarsal level in the left foot. * Left toe brachial index is abnormal. Recommendations * This study has inaccurate ROMAN's bilaterally due to elevated segmental pressures as seen with arterial calcification. Doppler and PVR waveforms show satisfactory amplitude and patterns to the ankles, suggesting normal perfusion. Clinical correlation advised. . Doppler Rt Common Femoral: Triphasic Rt Popliteal: Triphasic Rt Posterior Tibial: Triphasic Rt Dorsalis Pedis: Triphasic Lt Common Femoral: Triphasic Lt Popliteal: Triphasic Lt Posterior Tibial: Triphasic Lt Dorsalis Pedis: Triphasic PVR Rt Thigh: Normal Rt Calf: Normal Rt Ankle: Normal Lt Thigh: Normal Lt Calf: Normal Lt Ankle: Normal Lt Digit: Diminished Rt Thigh: 157 Rt Calf: 162 Rt Posterior Tibial: 178 Rt Dorsalis Pedis: 181 1.16 1.20 1.32 1.34 Lt Brachial: 135 Lt Thigh: 180 Lt Calf: 174 Lt Posterior Tibial: 180 Lt Dorsalis Pedis: 169 Lt Digit: 72 1.33 1.29 1.33 1.25 0.53 Risk Factors Patient has a history of diabetes, hyperlipidemia, hypertension and obesity. . Report Signatures Finalized by ABILIO Gutiérrez DO on 11/13/2020 03:26 PM [facility] Patient Info Name: MORE KINGSLEY Age: 55 years : 1965 Gender: Male Exam Date: 11/13/2020 8:13 AM Patient Status: Inpatient Breaker Machine Tender: Rafat Tony RVT Indications I73.9 - Peripheral vascular disease, unspecified Procedure Description 03679 Complete bilateral noninvasive physiologic studies of upper or lower extremity arteries with bidirectional Doppler/PVR waveform analysis at 3 or more levels. Conclusions * Right. * Right ankle brachial index is not accurate due to vessel wall calcification. Based on waveform criteria, this is a normal resting arterial evaluation. * No evidence of small vessel disease at the transmetatarsal level in the right foot. * Right toe brachial index not obtained due to amputation. * Left. * Left ankle brachial index is not accurate due to vessel wall calcification. Based on waveform criteria, this is a normal resting arterial evaluation. * Mild small vessel disease at the transmetatarsal level in the left foot. * Left toe brachial index is abnormal. Recommendations * This study has inaccurate ROMAN's bilaterally due to elevated segmental pressures as seen with arterial calcification. Doppler and PVR waveforms show satisfactory amplitude and patterns to the ankles, suggesting normal perfusion. Clinical correlation advised. . Doppler Rt Common Femoral: Triphasic Rt Popliteal: Triphasic Rt Posterior Tibial: Triphasic Rt Dorsalis Pedis: Triphasic Lt Common Femoral: Triphasic Lt Popliteal: Triphasic Lt Posterior Tibial: Triphasic Lt Dorsalis Pedis: Triphasic PVR Rt Thigh: Normal Rt Calf: Normal Rt Ankle: Normal Lt Thigh: Normal Lt Calf: Normal Lt Ankle: Normal Lt Digit: Diminished Rt Thigh: 157 Rt Calf: 162 Rt Posterior Tibial: 178 Rt Dorsalis Pedis: 181 1.16 1.20 1.32 1.34 Lt Brachial: 135 Lt Thigh: 180 Lt Calf: 174 Lt Posterior Tibial: 180 Lt Dorsalis Pedis: 169 Lt Digit: 72 1.33 1.29 1.33 1.25 0.53 Risk Factors Patient has a history of diabetes, hyperlipidemia, hypertension and obesity. . Report Signatures Finalized by ABILIO Gutiérrez DO on 11/13/2020 03:26 PM [facility] Basic Metabolic Panelon 12 Anion gap [Moles/Vol] 10 mmol/L 10 - 2 0 mmol/L [facility] Calcium [Mass/Vol] 8.0 mg/dL Low 8.4 - 10. 2 mg/dL [facility] Chloride [Moles/Vol] 104 mmol/L 98 - 10 8 mmol/L [facility] Creatinine [Mass/Vol] 0.84 mg/dL 0.50 - 1.30 [facility] GFR/1.73 sq M predicted among non-blacks MDRD (S/P/Bld) [Vol rate/Area] The eGFR should be used for monitoring renal function only and not for medication dosing. [facility] GFR/1.73 sq M.predicted CKD-EPI (S/P/Bld) [Vol rate/Area] 99 >=60 mL/min/1.73 m2 [facility] Glucose [Mass/Vol] 86 mg/dL 65 - 99 mg/dL [facility] HCO3 [Moles/Vol] 25 mmol/L 21 - 32 mmol/L [facility] Interpretation and review of laboratory results Abnormal [facility] Potassium [Moles/Vol] 4.1 mmol/L 3.5 - 5.1 mmol/L [facility] [facility] Sodium [Moles/Vol] 135 mmol/L 135 - 145 mmol/L [facility] Urea nitrogen [Mass/Vol] 10 mg/dL 8 - 25 mg/dL [facility] Urea nitrogen/Creatinine [Mass ratio] 11.9 mg/mg [facility] CBCon 11-12-2020 Erythrocyte distribution width (RBC) [Entitic vol] 16.4 % High 11.6 - 14.8 % [facility] Hematocrit (Bld) [Volume fraction] 32.7 % Low 41 - 53 % [facility] Hemoglobin (Bld) [Mass/Vol] 10.1 g/dL Low 13.5 - 17.5 g/dL [facility] Interpretation and review of laboratory results Abnormal [facility] MCH (RBC) [Entitic mass] 25.7 pg Low 26 - 34 pg [facility] MCHC (RBC) [Mass/Vol] 30.9 g/dL Low 31 - 37 g/dL [facility] MCV (RBC) [Entitic vol] 83.2 fL 80 - 100 fL [facility] Nucleated RBC (Bld) [#/Vol] 0.00 10*3/uL [facility] Nucleated RBC/100 WBC (Bld) [Ratio] 0.0 % [facility] Platelet mean volume (Bld) [Entitic vol] 10.4 fL 9.4 - 12.4 fL [facility] Platelets (Bld) [#/Vol] 497 10*3/uL High [facility] RBC (Bld) [#/Vol] 3.93 10*6/uL Low [facility] WBC (Bld) [#/Vol] 13.36 10*3/uL [facility] COVID-19/INFLUENZA A,B MOLEC [facility] 11-12-2020 COVID-19/INFLUENZA A,B MOLECULAR SARS-COV-2 (JESSIKA): Not Detected INFLUENZA A (JESSIKA): Not Detected INFLUENZA B (JESSIKA): Not Detected Normal Not Detected [facility] Comment on above: Order Comment: This test was performed under the FDA's Emergency Use Authorization (EUA). Testing was performed using the Charo pratibha SARS-CoV-2 AND Influenza A/B Nucleic Acid Test on the pratibha Jessika System. This test has not been approved for use in asymptomatic patients and its performance in this patient population has not been evaluated. Negative results do not rule out the presence of SARS-CoV-2, influenza A, and/or influenza B. Fact sheets for the EUA can be found at the following links: For Healthcare Providers: https://www.fda.gov/media/246543/download For Patients: https://www.fda.gov/media/769952/download Performed By: #### L [id number] #### [facility] [address] [place], [place] [address] Warren Barnett M.D. [id number] COVID-19/Influenza A,B [facility] 11-12-2020 Influenza A Not Detected Not Detected [facility] Influenza B Not Detected Not Detected [facility] Interpretation and review of laboratory results Normal [facility] SARS-CoV-2 Not Detected Not Detected [facility] This test was performed under the FDA's Emergency Use Authorization (EUA). Testing was performed using the Charo pratibha SARS-CoV-2 & Influenza A/B Nucleic Acid Test on the pratibha Jessika System. This test has not been approved for use in asymptomatic patients and its performance in this patient population has not been evaluated. Negative results do not rule out the presence of SARS-CoV-2, influenza A, and/or influenza B. Fact sheets for the EUA can be found at the following links: For Healthcare Providers: https://www.[facility].gov/ks yoon/590216/download For Patients: https://www.[facility].gov/ks yoon/300326/download [facility] Magnesium Levelon 11-12-2020 Interpretation and review of laboratory results Normal [facility] Magnesium [Mass/Vol] 1.8 mg/dL 1.6 - 2 .4 mg/dL [facility] NM GASTRIC EMPTYINGon 2019 NM GASTRIC EMPTYING EXAMINATION: DC GASTRIC EMPTYING HISTORY: Abdominal discomfort, nausea, vomiting and diabetes. TECHNIQUE: After the oral ingestion of a standardized meal consisting of egg substitute labeled with 1.3 mCi technetium-99m sulfur colloid, toast, jam and water, sequential anterior and posterior images were obtained through 4 hours. A region of interest was placed over the stomach and residual gastric activity was calculated at several time points using the geometric mean. COMPARISON: No relevant comparison available. FINDINGS: There is delayed emptying of the gastric contents into the intestine. Residual gastric activity is calculated as follows: 1 HOUR: 78% (normal range = 30-90%). 2 HOURS: 59% (normal range = 0-60%). 4 HOURS: 17% (normal range = 0-10%). IMPRESSION: Delayed gastric emptying. Workstation ID: [id number] Dictated by: CINDY NOE on WedNov 13, 2020 1:34:26 PM EST Transcribed by: CINDY NOE on WedNov 13, 2020 1:34:26 PM EST Finalized by: CINDY NOE on WedNov 13, 2020 1:34:26 PM EST Normal [facility] Comment on above: Order Comment: Injur y/Trauma or Illness?:Illness/Other How long have you had these symptoms (acute/chronic)?:Chronic a few years now Reason for exam?:Recurrent nausea and vomiting and abdominal discomfort uncontrolled diabetes Type of Exam?:Ongoing Additional signs and symptoms?:nausea and vomiting almost daily for a few years now, POC Glucoseon 11-12-2020 Glucose [Mass/Vol] 159 mg/dL High 65 - 99 mg/dL [facility] Interpretation and review of laboratory results Abnormal [facility] Glucose [Mass/Vol] 161 mg/dL High 65 - 99 mg/dL [facility] Interpretation and review of laboratory results Abnormal [facility] Glucose [Mass/Vol] 153 mg/dL High 65 - 99 mg/dL [facility] Interpretation and review of laboratory results Abnormal [facility] Glucose [Mass/Vol] 71 mg/dL 65 - 99 mg/dL [facility] Interpretation and review of laboratory results Normal [facility] Basic Metabolic Panelon 10-23 Anion gap [Moles/Vol] 9 mmol/L Low 10 - 2 0 mmol/L [facility] Calcium [Mass/Vol] 8.1 mg/dL Low 8.4 - 10. 2 mg/dL [facility] Chloride [Moles/Vol] 106 mmol/L 98 - 10 8 mmol/L [facility] Creatinine [Mass/Vol] 1.00 mg/dL 0.50 - 1.30 [facility] GFR/1.73 sq M predicted among non-blacks MDRD (S/P/Bld) [Vol rate/Area] The eGFR should be used for monitoring renal function only and not for medication dosing. [facility] GFR/1.73 sq M.predicted CKD-EPI (S/P/Bld) [Vol rate/Area] 85 >=60 mL/min/1.73 m2 [facility] Glucose [Mass/Vol] 108 mg/dL High 65 - 99 mg/dL [facility] HCO3 [Moles/Vol] 26 mmol/L 21 - 32 mmol/L [facility] Interpretation and review of laboratory results Abnormal [facility] Potassium [Moles/Vol] 4.0 mmol/L 3.5 - 5.1 mmol/L [facility] Sodium [Moles/Vol] 137 mmol/L 135 - 145 mmol/L [facility] Urea nitrogen [Mass/Vol] 8 mg/dL 8 - 25 mg/dL [facility] Urea nitrogen/Creatinine [Mass ratio] 8.0 mg/mg Low [facility] CBCon 11-11-2020 Erythrocyte distribution width (RBC) [Entitic vol] 16.2 % High 11.6 - 14.8 % [facility] Hematocrit (Bld) [Volume fraction] 36.2 % Low 41 - 53 % [facility] Hemoglobin (Bld) [Mass/Vol] 11.2 g/dL Low 13.5 - 17.5 g/dL [facility] Interpretation and review of laboratory results Abnormal [facility] MCH (RBC) [Entitic mass] 25.7 pg Low 26 - 34 pg [facility] MCHC (RBC) [Mass/Vol] 30.9 g/dL Low 31 - 37 g/dL [facility] MCV (RBC) [Entitic vol] 83.0 fL 80 - 100 fL [facility] Nucleated RBC (Bld) [#/Vol] 0.00 10*3/uL [facility] Nucleated RBC/100 WBC (Bld) [Ratio] 0.0 % [facility] Platelet mean volume (Bld) [Entitic vol] 10.6 fL 9.4 - 12.4 fL [facility] Platelets (Bld) [#/Vol] 511 10*3/uL High [facility] RBC (Bld) [#/Vol] 4.36 10*6/uL Low [facility] WBC (Bld) [#/Vol] 11.96 10*3/uL High [facility] Magnesium Levelon 11-11-2020 Interpretation and review of laboratory results Normal [facility] Magnesium [Mass/Vol] 1.7 mg/dL 1.6 - 2 .4 mg/dL [facility] Interpretation and review of laboratory results Normal [facility] Magnesium [Mass/Vol] 1.8 mg/dL 1.6 - 2 .4 mg/dL [facility] POC Glucoseon 11-11-2020 Glucose [Mass/Vol] 104 mg/dL High 65 - 99 mg/dL [facility] Interpretation and review of laboratory results Abnormal [facility] Glucose [Mass/Vol] 86 mg/dL 65 - 99 mg/dL [facility] Interpretation and review of laboratory results Normal [facility] Glucose [Mass/Vol] 106 mg/dL High 65 - 99 mg/dL [facility] Interpretation and review of laboratory results Abnormal [facility] Glucose [Mass/Vol] 115 mg/dL High 65 - 99 mg/dL [facility] Interpretation and review of laboratory results Abnormal [facility] Basic Metabolic Panelon 10-23 Anion gap [Moles/Vol] 9 mmol/L Low 10 - 2 0 mmol/L [facility] Calcium [Mass/Vol] 7.9 mg/dL Low 8.4 - 10. 2 mg/dL [facility] Chloride [Moles/Vol] 104 mmol/L 98 - 10 8 mmol/L [facility] Creatinine [Mass/Vol] 0.94 mg/dL 0.50 - 1.30 [facility] GFR/1.73 sq M predicted among non-blacks MDRD (S/P/Bld) [Vol rate/Area] The eGFR should be used for monitoring renal function only and not for medication dosing. [facility] GFR/1.73 sq M.predicted CKD-EPI (S/P/Bld) [Vol rate/Area] 92 >=60 mL/min/1.73 m2 [facility] Glucose [Mass/Vol] 151 mg/dL High 65 - 99 mg/dL [facility] HCO3 [Moles/Vol] 26 mmol/L 21 - 32 mmol/L [facility] Interpretation and review of laboratory results Abnormal [facility] Potassium [Moles/Vol] 3.4 mmol/L Low 3.5 - 5.1 mmol/L [facility] Sodium [Moles/Vol] 136 mmol/L 135 - 145 mmol/L [facility] Urea nitrogen [Mass/Vol] 8 mg/dL 8 - 25 mg/dL [facility] Urea nitrogen/Creatinine [Mass ratio] 8.5 mg/mg Low [facility] CBCon 2020 Erythrocyte distribution width (RBC) [Entitic vol] 16.4 % High 11.6 - 14.8 % [facility] Hematocrit (Bld) [Volume fraction] 36.2 % Low 41 - 53 % [facility] Hemoglobin (Bld) [Mass/Vol] 11.4 g/dL Low 13.5 - 17.5 g/dL [facility] Interpretation and review of laboratory results Abnormal [facility] MCH (RBC) [Entitic mass] 26.5 pg 26 - 34 pg [facility] MCHC (RBC) [Mass/Vol] 31.5 g/dL 31 - 37 g/dL [facility] MCV (RBC) [Entitic vol] 84.2 fL 80 - 100 fL [facility] Nucleated RBC (Bld) [#/Vol] 0.00 10*3/uL [facility] Nucleated RBC/100 WBC (Bld) [Ratio] 0.0 % [facility] Platelet mean volume (Bld) [Entitic vol] 11.0 fL 9.4 - 12.4 fL [facility] Platelets (Bld) [#/Vol] 411 10*3/uL High [facility] RBC (Bld) [#/Vol] 4.30 10*6/uL Low [facility] WBC (Bld) [#/Vol] 12.21 10*3/uL [facility] Imm/Pathon 2020 Bacteria identified Cx Nom [facility]Bld) [facility] Interpretation and review of laboratory results Normal [facility] Magnesium [Mass/Vol] 1.9 mg/dL 1.6 - 2 .4 mg/dL [facility] POC Glucoseon 2020 Glucose [Mass/Vol] 136 mg/dL High 65 - 99 mg/dL [facility] Interpretation and review of laboratory results Abnormal [facility] Glucose [Mass/Vol] 137 mg/dL High 65 - 99 mg/dL [facility] Interpretation and review of laboratory results Abnormal [facility] Glucose [Mass/Vol] 151 mg/dL High 65 - 99 mg/dL [facility] Interpretation and review of laboratory results Abnormal [facility] Glucose [Mass/Vol] 167 mg/dL High 65 - 99 mg/dL [facility] Interpretation and review of laboratory results Abnormal [facility] Glucose [Mass/Vol] 154 mg/dL High 65 - 99 mg/dL [facility] Interpretation and review of laboratory results Abnormal [facility] Glucose [Mass/Vol] 58 mg/dL Low 65 - 99 mg/dL [facility] Interpretation and review of laboratory results Abnormal [facility] Basic Metabolic Panelon 10-22 Anion gap [Moles/Vol] 11 mmol/L 10 - 2 0 mmol/L [facility] Calcium [Mass/Vol] 7.6 mg/dL Low 8.4 - 10. 2 mg/dL [facility] Chloride [Moles/Vol] 103 mmol/L 98 - 10 8 mmol/L [facility] Creatinine [Mass/Vol] 0.84 mg/dL 0.50 - 1.30 [facility] GFR/1.73 sq M predicted among non-blacks MDRD (S/P/Bld) [Vol rate/Area] The eGFR should be used for monitoring renal function only and not for medication dosing. [facility] GFR/1.73 sq M.predicted CKD-EPI (S/P/Bld) [Vol rate/Area] 100 >=60 mL/min/1.73 m2 [facility] Glucose [Mass/Vol] 85 mg/dL 65 - 99 mg/dL [facility] HCO3 [Moles/Vol] 24 mmol/L 21 - 32 mmol/L [facility] Interpretation and review of laboratory results Abnormal [facility] Potassium [Moles/Vol] 3.1 mmol/L Low 3.5 - 5.1 mmol/L [facility] Sodium [Moles/Vol] 135 mmol/L 135 - 145 mmol/L [facility] Urea nitrogen [Mass/Vol] 10 mg/dL 8 - 25 mg/dL [facility] Urea nitrogen/Creatinine [Mass ratio] 11.9 mg/mg [facility] CBCon 11-09-2020 Erythrocyte distribution width (RBC) [Entitic vol] 16.2 % High 11.6 - 14.8 % [facility] Hematocrit (Bld) [Volume fraction] 35.8 % Low 41 - 53 % [facility] Hemoglobin (Bld) [Mass/Vol] 11.2 g/dL Low 13.5 - 17.5 g/dL [facility] Interpretation and review of laboratory results Abnormal [facility] MCH (RBC) [Entitic mass] 25.9 pg Low 26 - 34 pg [facility] MCHC (RBC) [Mass/Vol] 31.3 g/dL 31 - 37 g/dL [facility] MCV (RBC) [Entitic vol] 82.9 fL 80 - 100 fL [facility] Nucleated RBC (Bld) [#/Vol] 0.00 10*3/uL [facility] Nucleated RBC/100 WBC (Bld) [Ratio] 0.0 % [facility] Platelet mean volume (Bld) [Entitic vol] 11.1 fL 9.4 - 12.4 fL [facility] Platelets (Bld) [#/Vol] 337 10*3/uL [facility] RBC (Bld) [#/Vol] 4.32 10*6/uL Low [facility] WBC (Bld) [#/Vol] 11.42 10*3/uL [facility] Magnesium Levelon 11-09-2020 Interpretation and review of laboratory results Normal [facility] Magnesium [Mass/Vol] 1.7 mg/dL 1.6 - 2 .4 mg/dL [facility] POC Glucoseon 11-09-2020 Glucose [Mass/Vol] 112 mg/dL High 65 - 99 mg/dL [facility] Interpretation and review of laboratory results Abnormal [facility] Glucose [Mass/Vol] 82 mg/dL 65 - 99 mg/dL [facility] Interpretation and review of laboratory results Normal [facility] Glucose [Mass/Vol] 81 mg/dL 65 - 99 mg/dL [facility] Interpretation and review of laboratory results Normal [facility] Glucose [Mass/Vol] 88 mg/dL 65 - 99 mg/dL [facility] Interpretation and review of laboratory results Normal [facility] Glucose [Mass/Vol] 96 mg/dL 65 - 99 mg/dL [facility] Interpretation and review of laboratory results Normal [facility] Glucose [Mass/Vol] 88 mg/dL 65 - 99 mg/dL [facility] Interpretation and review of laboratory results Normal [facility] Glucose [Mass/Vol] 61 mg/dL Low 65 - 99 mg/dL [facility] Interpretation and review of laboratory results Abnormal [facility] Urine Aerobic Cultureon 10-22 Bacteria identified Aer cx Nom (Unsp spec) No Growth (<1,000 CFU/mL) [facility] WOUND AEROBIC CULTUREon 10-22 Bacteria identified Aer cx Nom (Wound) Light Growth Staphylococcus aureus Abnormal [facility] Comment on above: See susceptibility f rom same source/different date: 11/06/2020 Interpretation and review of laboratory results Abnormal [facility] Microscopic observation Gram stain Nom (Wound) Positive [facility] Microscopic observation Gram stain Nom (Wound) Many WBC [facility] Microscopic observation Gram stain Nom (Wound) No Epithelial Cells Seen [facility] Basic Metabolic Panelon 10-22 Anion gap [Moles/Vol] 9 mmol/L Low 10 - 2 0 mmol/L [facility] Calcium [Mass/Vol] 7.8 mg/dL Low 8.4 - 10. 2 mg/dL [facility] Chloride [Moles/Vol] 104 mmol/L 98 - 10 8 mmol/L [facility] Creatinine [Mass/Vol] 0.98 mg/dL 0.50 - 1.30 [facility] GFR/1.73 sq M predicted among non-blacks MDRD (S/P/Bld) [Vol rate/Area] The eGFR should be used for monitoring renal function only and not for medication dosing. [facility] GFR/1.73 sq M.predicted CKD-EPI (S/P/Bld) [Vol rate/Area] 88 >=60 mL/min/1.73 m2 [facility] Glucose [Mass/Vol] 136 mg/dL High 65 - 99 mg/dL [facility] HCO3 [Moles/Vol] 25 mmol/L 21 - 32 mmol/L [facility] Interpretation and review of laboratory results Abnormal [facility] Potassium [Moles/Vol] 3.4 mmol/L Low 3.5 - 5.1 mmol/L [facility] Sodium [Moles/Vol] 135 mmol/L 135 - 145 mmol/L [facility] Urea nitrogen [Mass/Vol] 14 mg/dL 8 - 25 mg/dL [facility] Urea nitrogen/Creatinine [Mass ratio] 14.3 mg/mg [facility] Otheron 11-08-2020 Bacteria identified Aer cx Nom (Wound) Moderate Growth Staphylococcus aureus Abnormal [facility] Comment on above: This Staphylococcus aureus is Methicillin SUSCEPTIBLE by PBP2a testing. Beta-lactams like Cefazolin and Nafcillin are superior to Vancomycin for treating mSsa. Interpretation and review of laboratory results Abnormal [facility] Microscopic observation Gram stain Nom (Wound) No Epithelial Cells Seen [facility] POC Glucoseon 11-08-2020 Glucose [Mass/Vol] 105 mg/dL High 65 - 99 mg/dL [facility] Interpretation and review of laboratory results Abnormal [facility] Glucose [Mass/Vol] 98 mg/dL 65 - 99 mg/dL [facility] Interpretation and review of laboratory results Normal [facility] Glucose [Mass/Vol] 109 mg/dL High 65 - 99 mg/dL [facility] Interpretation and review of laboratory results Abnormal [facility] Glucose [Mass/Vol] 107 mg/dL High 65 - 99 mg/dL [facility] Interpretation and review of laboratory results Abnormal [facility] WOUND AEROBIC CULTUREon 10-22 Bacteria identified Aer cx Nom (Wound) Moderate Growth Streptococcus agalactiae (Group B) Abnormal [facility] Microscopic observation Gram stain Nom (Wound) Positive [facility] Microscopic observation Gram stain Nom (Wound) No Organisms Seen [facility] Microscopic observation Gram stain Nom (Wound) Few WBC [facility] Microscopic observation Gram stain Nom (Wound) Rare WBC [facility] See susceptibility from same source/same date. [facility] CBC WITH AUTO DIFFERENTIALon 11-07-2020 Basophils (Bld) [#/Vol] 0.09 10*3/uL [facility] Basophils/100 WBC (Bld) 0.7 % [facility] Eosinophils (Bld) [#/Vol] 0.22 10*3/uL [facility] Eosinophils/100 WBC (Bld) 1.8 % [facility] Erythrocyte distribution width (RBC) [Entitic vol] 15.9 % High 11.6 - 14.8 % [facility] Hematocrit (Bld) [Volume fraction] 35.6 % Low 41 - 53 % [facility] Hemoglobin (Bld) [Mass/Vol] 11.2 g/dL Low 13.5 - 17.5 g/dL [facility] Immature granulocytes (Bld) [#/Vol] 0.20 10*3/uL [facility] Immature granulocytes/100 WBC (Bld) 1.70 % [facility] Comment on above: The IG parameter is the percentage of metamyelocytes, myelocytes and promyelocytes. An immature granulocyte count (IG) of 1% or more suggests the possibility of infection, an IG count of 3% is very likely related to an infection. Interpretation and review of laboratory results Abnormal [facility] Lymphocytes (Bld) [#/Vol] 1.29 10*3/uL [facility] Lymphocytes/100 WBC (Bld) 10.7 % [facility] MCH (RBC) [Entitic mass] 26.4 pg 26 - 34 pg [facility] MCHC (RBC) [Mass/Vol] 31.5 g/dL 31 - 37 g/dL [facility] MCV (RBC) [Entitic vol] 83.8 fL 80 - 100 fL [facility] Monocytes (Bld) [#/Vol] 1.22 10*3/uL High [facility] Monocytes/100 WBC (Bld) 10.1 % [facility] Neutrophils (Bld) [#/Vol] 9.01 10*3/uL High [facility] Neutrophils/100 WBC (Bld) 75.0 % [facility] Nucleated RBC (Bld) [#/Vol] 0.00 10*3/uL [facility] Nucleated RBC/100 WBC (Bld) [Ratio] 0.0 % [facility] Platelet mean volume (Bld) [Entitic vol] 11.1 fL 9.4 - 12.4 fL [facility] Platelets (Bld) [#/Vol] 282 10*3/uL [facility] RBC (Bld) [#/Vol] 4.25 10*6/uL Low [facility] WBC (Bld) [#/Vol] 12.03 10*3/uL [facility] POC Glucoseon 11-07-2020 Glucose [Mass/Vol] 178 mg/dL High 65 - 99 mg/dL [facility] Interpretation and review of laboratory results Abnormal [facility] Glucose [Mass/Vol] 205 mg/dL High 65 - 99 mg/dL [facility] Interpretation and review of laboratory results Abnormal [facility] Glucose [Mass/Vol] 221 mg/dL High 65 - 99 mg/dL [facility] Interpretation and review of laboratory results Abnormal [facility] Glucose [Mass/Vol] 206 mg/dL High 65 - 99 mg/dL [facility] Interpretation and review of laboratory results Abnormal [facility] Glucose [Mass/Vol] 209 mg/dL High 65 - 99 mg/dL [facility] Interpretation and review of laboratory results Abnormal [facility] C3 COMPLEMENTon 11-06-2020 Complement C3 [Mass/Vol] 151.9 mg/dL 73 - 183 mg/dL [facility] C4 COMPLEMENTon 11-06-2020 Complement C4 [Mass/Vol] 21.6 mg/dL 16 - 47 mg/dL [facility] CBC WITH AUTO DIFFERENTIALon 11-06-2020 Basophils (Bld) [#/Vol] 0.07 10*3/uL [facility] Basophils/100 WBC (Bld) 0.5 % [facility] Eosinophils (Bld) [#/Vol] 0.05 10*3/uL [facility] Eosinophils/100 WBC (Bld) 0.3 % [facility] Erythrocyte distribution width (RBC) [Entitic vol] 15.4 % High 11.6 - 14.8 % [facility] Hematocrit (Bld) [Volume fraction] 34.1 % Low 41 - 53 % [facility] Hemoglobin (Bld) [Mass/Vol] 10.8 g/dL Low 13.5 - 17.5 g/dL [facility] Immature granulocytes (Bld) [#/Vol] 0.14 10*3/uL [facility] Immature granulocytes/100 WBC (Bld) 0.90 % [facility] Comment on above: The IG parameter is the percentage of metamyelocytes, myelocytes and promyelocytes. An immature granulocyte count (IG) of 1% or more suggests the possibility of infection, an IG count of 3% is very likely related to an infection. Interpretation and review of laboratory results Abnormal [facility] Lymphocytes (Bld) [#/Vol] 1.06 10*3/uL [facility] Lymphocytes/100 WBC (Bld) 6.9 % [facility] MCH (RBC) [Entitic mass] 26.2 pg 26 - 34 pg [facility] MCHC (RBC) [Mass/Vol] 31.7 g/dL 31 - 37 g/dL [facility] MCV (RBC) [Entitic vol] 82.6 fL 80 - 100 fL [facility] Monocytes (Bld) [#/Vol] 1.56 10*3/uL High [facility] Monocytes/100 WBC (Bld) 10.2 % [facility] Neutrophils (Bld) [#/Vol] 12.39 10*3/uL High [facility] Neutrophils/100 WBC (Bld) 81.2 % [facility] Nucleated RBC (Bld) [#/Vol] 0.00 10*3/uL [facility] Nucleated RBC/100 WBC (Bld) [Ratio] 0.0 % [facility] Platelet mean volume (Bld) [Entitic vol] 11.2 fL 9.4 - 12.4 fL [facility] Platelets (Bld) [#/Vol] 248 10*3/uL [facility] RBC (Bld) [#/Vol] 4.13 10*6/uL Low [facility]alth WBC (Bld) [#/Vol] 15.27 10*3/uL [facility] CT COMPARISON IMPORTon 11-06 This order has been auto-finalized and does not contain a result. [facility] Hemoglobin A1con 11-06-2020 Average glucose Estimated from glycated hemoglobin mass conc (Bld) 189 mg/dL High 68 - 114 mg/dL [facility] HbA1c (Bld) [Mass fraction] 8.2 % High 4 - 5.6 % [facility] Interpretation and review of laboratory results Abnormal [facility] Normal: 4.0% - 5.6% Increased risk for diabetes: 5.7% - 6.4% Diabetes: >= 6.5% Pediatrics: No established reference range Estimated average glucose: 68-114 mg/dL [facility] Lactic Acid, Plasmaon 2019 Interpretation and review of laboratory results Abnormal [facility] Lactate [Moles/Vol] 2.3 mmol/L High 0.6 - 2 mmol/L [facility] MR Foot Left With And Withou t Contraston 11-06-2020 Interface, Rad In Elpidio ji Speechq - 11/06/2020 9:29 PM EST EXAMINATION: MR FOOT LEFT WITH AND WITHOUT CONTRAST HISTORY: ORDERING SYSTEM PROVIDED HISTORY: foot infection, TECHNOLOGIST PROVIDED HISTORY: Illness/Other Reason for exam: Non healing wounds lateral / dorsal aspect x 7 days Encounter Type: Initial Additional signs and symptoms: na ORDERING SYSTEM PROVIDED DIAGNOSIS CODES: COMPARISON: Left foot x-rays 11/06/2020. TECHNIQUE: Multiplanar multisequence MRI of the left mid/forefoot was performed with and without IV contrast utilizing 20 mL of Dotarem. This included short-axis T2, short-axis STIR, short-axis T1, short-axis T1 fat-sat, sagittal STIR, sagittal T1, long-axis T1, long-axis STIR with postcontrast short-axis and long-axis T1 imaging with and without fat suppression. CONTRAST: GADOTERATE MEGLUMINE 0.5 MMOL/ML (376.9 MG/ML) INTRAVENOUS SOLUTION - 20 mL, FINDINGS: JOINTS: Marked sclerosis involving the subchondral bones along the navicular-middle cuneiform articulation and 2nd through 5th TMT joints, associated enhancing edema involving the navicular bone, cuneiform bones and 1st through 5th tarsometatarsal joints. Severe osteoarthritis redemonstrated in the 1st MTP joint with joint space narrowing, marginal spur, subchondral cystic change and joint effusion. BONES: No fracture is seen. TENDONS: Visualized flexor and extensor tendons are intact. No long-segment tenosynovitis is seen. PLANTAR FASCIA: The visualized plantar fascia appears intact. SOFT TISSUES: Defect in the dorsal skin surface at the midfoot may be related to debridement with some packing material measuring 3.9 x 1.3 cm, AP by transverse dimension. There is marked enhancement in the soft tissues of the entire foot compatible with cellulitis. Ill-defined absent enhancement is seen along the tarsometatarsal joint which could be related to tissue necrosis. No certain abscess. No evidence of intermetatarsal bursitis. Plantar plates are intact. There is prominent fatty atrophy of the forefoot muscles presumably related to chronic diabetic neuropathy. IMPRESSION: 1. Abnormal appearance of the midfoot particularly at the 2nd through 5th TMT joints and navicular-middle cuneiform articulations. Given the nearby dorsal skin wound, and degree of inflammation, these findings are concerning for multifocal septic arthropathy and osteomyelitis. Superimposed neuropathic arthropathy is not excluded. The talus and calcaneus appear spared. 2. Extensive cellulitis without obvious abscess. There is some nonenhancement along the midfoot concerning for tissue necrosis. 3. 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 4. No tendon tear or tenosynovitis is seen. MPH/mkv Workstation ID: [id number] [facility] EXAMINATION: MR FOOT LEFT WITH AND WITHOUT CONTRAST HISTORY: ORDERING SYSTEM PROVIDED HISTORY: foot infection, TECHNOLOGIST PROVIDED HISTORY: Illness/Other Reason for exam: Non healing wounds lateral / dorsal aspect x 7 days Encounter Type: Initial Additional signs and symptoms: na ORDERING SYSTEM PROVIDED DIAGNOSIS CODES: COMPARISON: Left foot x-rays 11/06/2020. TECHNIQUE: Multiplanar multisequence MRI of the left mid/forefoot was performed with and without IV contrast utilizing 20 mL of Dotarem. This included short-axis T2, short-axis STIR, short-axis T1, short-axis T1 fat-sat, sagittal STIR, sagittal T1, long-axis T1, long-axis STIR with postcontrast short-axis and long-axis T1 imaging with and without fat suppression. CONTRAST: GADOTERATE MEGLUMINE 0.5 MMOL/ML (376.9 MG/ML) INTRAVENOUS SOLUTION - 20 mL, FINDINGS: JOINTS: Marked sclerosis involving the subchondral bones along the navicular-middle cuneiform articulation and 2nd through 5th TMT joints, associated enhancing edema involving the navicular bone, cuneiform bones and 1st through 5th tarsometatarsal joints. Severe osteoarthritis redemonstrated in the 1st MTP joint with joint space narrowing, marginal spur, subchondral cystic change and joint effusion. BONES: No fracture is seen. TENDONS: Visualized flexor and extensor tendons are intact. No long-segment tenosynovitis is seen. PLANTAR FASCIA: The visualized plantar fascia appears intact. SOFT TISSUES: Defect in the dorsal skin surface at the midfoot may be related to debridement with some packing material measuring 3.9 x 1.3 cm, AP by transverse dimension. There is marked enhancement in the soft tissues of the entire foot compatible with cellulitis. Ill-defined absent enhancement is seen along the tarsometatarsal joint which could be related to tissue necrosis. No certain abscess. No evidence of intermetatarsal bursitis. Plantar plates are intact. There is prominent fatty atrophy of the forefoot muscles presumably related to chronic diabetic neuropathy. [facility] 1. Abnormal appearan ce of the midfoot particularly at the 2nd through 5th TMT joints and navicular-middle cuneiform articulations. Given the nearby dorsal skin wound, and degree of inflammation, these findings are concerning for multifocal septic arthropathy and osteomyelitis. Superimposed neuropathic arthropathy is not excluded. The talus and calcaneus appear spared. 2. Extensive cellulitis without obvious abscess. There is some nonenhancement along the midfoot concerning for tissue necrosis. 3. 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 4. No tendon tear or tenosynovitis is seen. MPH/mkv Workstation ID: [id number] [facility] MR Foot Right With And Witho ut Contraston 11-06-2020 Interface, Rad In Fu ji Speechq - 11/06/2020 9:00 PM EST EXAMINATION: MR FOOT RIGHT WITH AND WITHOUT CONTRAST HISTORY: ORDERING SYSTEM PROVIDED HISTORY: foot infection, TECHNOLOGIST PROVIDED HISTORY: Illness/Other Reason for exam: Non healing wound plantar surface x 3 months Encounter Type: Initial Additional signs and symptoms: na ORDERING SYSTEM PROVIDED DIAGNOSIS CODES: COMPARISON: Right foot x-rays 11/06/2020. TECHNIQUE: Multiplanar multisequence MRI of the right mid/hindfoot was performed without contrast. This included long-axis T1, long-axis STIR, short axis T1 fat-sat, short axis STIR, short axis T1, short axis T2, sagittal STIR, sagittal T1 with postcontrast long axis and short axis T1 fat-sat. CONTRAST: GADOTERATE MEGLUMINE 0.5 MMOL/ML (376.9 MG/ML) INTRAVENOUS SOLUTION - 20 mL, FINDINGS: JOINTS: No talar dome osteochondral lesion is seen. There is aequ-di-cpxhamoo mid and hindfoot osteoarthritis with scattered marginal spur noted. Prior forefoot resection is noted to the 1st and 2nd TMT joints with remnants of the 3rd through 5th metatarsals remaining. BONES: No enhancing edema or marrow infiltrative change involving the tarsal bones or metatarsal remnants. No fracture is seen. LIGAMENTS: There several large ossicles in the expected location of the ATFL compatible with remote sprain. The calcaneal fibular ligament is intact. The posterior talofibular ligament appears intact. Architectural distortion of the deep fibers of the deltoid ligament associated with large ossicle, related to remote sprain. The anterior and posterior tibiofibular ligaments are intact. TENDONS: Postsurgical changes of the tendons at the midfoot is noted. No tenosynovitis is seen. The Achilles tendon is grossly intact, as seen. SINUS TARSI: Normal fat signal is seen sinus tarsi. PLANTAR FASCIA: Large plantar calcaneal spur measures 1.1 cm. TARSAL TUNNEL: No mass lesion in the tarsal tunnel is seen. SOFT TISSUES: There is mild enhancing edema along the forefoot noted. Skin wound/ulceration at the surgical stump overlying the 3rd metatarsal measuring 1.0 cm in transverse dimension. No associated abscess. IMPRESSION: 1. Prior forefoot resection. Cellulitis of the surgical stump is seen associated with small ulceration. 2. No abscess. 3. No MR signs of osteomyelitis. 4. Lrdy-ei-qlrnxnee mid/hindfoot osteoarthritis. 5. Remote sprains of the ATFL and deep fibers of the deltoid ligament, as above. MPH/Dizzion Workstation ID: [id number] [facility] EXAMINATION: MR FOOT RIGHT WITH AND WITHOUT CONTRAST HISTORY: ORDERING SYSTEM PROVIDED HISTORY: foot infection, TECHNOLOGIST PROVIDED HISTORY: Illness/Other Reason for exam: Non healing wound plantar surface x 3 months Encounter Type: Initial Additional signs and symptoms: na ORDERING SYSTEM PROVIDED DIAGNOSIS CODES: COMPARISON: Right foot x-rays 11/06/2020. TECHNIQUE: Multiplanar multisequence MRI of the right mid/hindfoot was performed without contrast. This included long-axis T1, long-axis STIR, short axis T1 fat-sat, short axis STIR, short axis T1, short axis T2, sagittal STIR, sagittal T1 with postcontrast long axis and short axis T1 fat-sat. CONTRAST: GADOTERATE MEGLUMINE 0.5 MMOL/ML (376.9 MG/ML) INTRAVENOUS SOLUTION - 20 mL, FINDINGS: JOINTS: No talar dome osteochondral lesion is seen. There is ldgb-ap-lagapfqv mid and hindfoot osteoarthritis with scattered marginal spur noted. Prior forefoot resection is noted to the 1st and 2nd TMT joints with remnants of the 3rd through 5th metatarsals remaining. BONES: No enhancing edema or marrow infiltrative change involving the tarsal bones or metatarsal remnants. No fracture is seen. LIGAMENTS: There several large ossicles in the expected location of the ATFL compatible with remote sprain. The calcaneal fibular ligament is intact. The posterior talofibular ligament appears intact. Architectural distortion of the deep fibers of the deltoid ligament associated with large ossicle, related to remote sprain. The anterior and posterior tibiofibular ligaments are intact. TENDONS: Postsurgical changes of the tendons at the midfoot is noted. No tenosynovitis is seen. The Achilles tendon is grossly intact, as seen. SINUS TARSI: Normal fat signal is seen sinus tarsi. PLANTAR FASCIA: Large plantar calcaneal spur measures 1.1 cm. TARSAL TUNNEL: No mass lesion in the tarsal tunnel is seen. SOFT TISSUES: There is mild enhancing edema along the forefoot noted. Skin wound/ulceration at the surgical stump overlying the 3rd metatarsal measuring 1.0 cm in transverse dimension. No associated abscess. [facility] 1. Prior forefoot resection. Cellulitis of the surgical stump is seen associated with small ulceration. 2. No abscess. 3. No MR signs of osteomyelitis. 4. Tnzh-bc-jvuwtbls mid/hindfoot osteoarthritis. 5. Remote sprains of the ATFL and deep fibers of the deltoid ligament, as above. MPH/Dizzion Workstation ID: [id number] [facility] Magnesiumon 11-06-2020 Magnesium [Mass/Vol] 1.9 mg/dL 1.6 - 2 .4 mg/dL [facility] Otheron 11-06-2020 Interpretation and review of laboratory results Normal [facility] EXAMINATION: XR FOOT RIGHT 3+ VIEWS (STANDARD); XR FOOT LEFT 3+ VIEWS (STANDARD) 11/06/2020 10:20 am; 11/06/2020 10:22 am HISTORY: ORDERING SYSTEM PROVIDED HISTORY: osteomyelitis, TECHNOLOGIST PROVIDED HISTORY: Illness/Other Reason for exam: Secondary DM with DKA (HCC) Cancer History: Surgery, RadiationHistory: Encounter Type: Initial Additional signs and symptoms: Secondary DM with DKA (HCC), no known injury ORDERING SYSTEM PROVIDED DIAGNOSIS CODES: ; 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 No focal lytic or sclerotic changes. 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 Moderate enthesopathic spurring of the calcaneus. Moderate to severe degenerative changes with joint space narrowing and osteophyte formation suggesting neuropathic osteoarthropathy SOFT TISSUES: Soft tissue swelling of the forefoot with plantar ulcer EFFUSION: None visible. OTHER: Negative. LEFT: BONES: No acute fracture or dislocation. Stlu-db-qgvldllm degenerative changes throughout the foot. Severe degenerative changes the 1st metatarsophalangeal joint with bony remodeling, kbdp-gl-yycl articulation and marginal osteophyte formation. Enthesopathic spurring of the calcaneus. SOFT TISSUES: Moderate soft tissue swelling EFFUSION: None visible. OTHER: Negative. [facility] No definite plain fi lm evidence of osteomyelitis in the right or left foot Workstation ID: [id number] [facility] Interface, Rad In Fu ji Speechq - 11/06/2020 10:30 AM EST EXAMINATION: XR FOOT RIGHT 3+ VIEWS (STANDARD); XR FOOT LEFT 3+ VIEWS (STANDARD) 11/06/2020 10:20 am; 11/06/2020 10:22 am HISTORY: ORDERING SYSTEM PROVIDED HISTORY: osteomyelitis, TECHNOLOGIST PROVIDED HISTORY: Illness/Other Reason for exam: Secondary DM with DKA (HCC) Cancer History: Surgery, RadiationHistory: Encounter Type: Initial Additional signs and symptoms: Secondary DM with DKA (HCC), no known injury ORDERING SYSTEM PROVIDED DIAGNOSIS CODES: ; 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 No focal lytic or sclerotic changes. 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 Moderate enthesopathic spurring of the calcaneus. Moderate to severe degenerative changes with joint space narrowing and osteophyte formation suggesting neuropathic osteoarthropathy SOFT TISSUES: Soft tissue swelling of the forefoot with plantar ulcer EFFUSION: None visible. OTHER: Negative. LEFT: BONES: No acute fracture or dislocation. Ckwx-fu-ymxqqcwz degenerative changes throughout the foot. Severe degenerative changes the 1st metatarsophalangeal joint with bony remodeling, havz-pn-eikj articulation and marginal osteophyte formation. Enthesopathic spurring of the calcaneus. SOFT TISSUES: Moderate soft tissue swelling EFFUSION: None visible. OTHER: Negative. IMPRESSION: No definite plain film evidence of osteomyelitis in the right or left foot Workstation ID: [id number] [facility] Interpretation and review of laboratory results Normal [facility] POC Glucoseon 11-06-2020 Glucose [Mass/Vol] 327 mg/dL High 65 - 99 mg/dL [facility] Interpretation and review of laboratory results Abnormal [facility] Glucose [Mass/Vol] 301 mg/dL High 65 - 99 mg/dL [facility] Interpretation and review of laboratory results Abnormal [facility] Glucose [Mass/Vol] 272 mg/dL High 65 - 99 mg/dL [facility] Interpretation and review of laboratory results Abnormal [facility] Glucose [Mass/Vol] 346 mg/dL High 65 - 99 mg/dL [facility] Interpretation and review of laboratory results Abnormal [facility] Glucose [Mass/Vol] 303 mg/dL High 65 - 99 mg/dL [facility] Interpretation and review of laboratory results Abnormal [facility] Procalcitoninon 11-06-2020 Interpretation and review of laboratory results Abnormal [facility] Procalcitonin [Mass/Vol] 3.85 ng/mL High <0.50 [facility] Results >2.00 ng/ml represent a high risk of severe sepsis and/or septic shock. [facility] Protein / Creatinine Ratio, Urineon 11-06-2020 Creatinine (U) [Mass/Vol] 36.6 mg/dL [facility] Interpretation and review of laboratory results Abnormal [facility] Protein (U) [Mass/Vol] 61.1 mg/dL [facility] Protein/Creatinine (U) [Ratio] 1.7 High [facility] Reflex Lactic Acid, Plasmaon 11-06-2020 Interpretation and review of laboratory results Abnormal [facility] Lactate [Moles/Vol] 2.1 mmol/L High 0.6 - 2 mmol/L [facility] Renal Function Panelon 11-06 Albumin [Mass/Vol] 1.5 g/dL Low 3.2 - 5.2 g/dL [facility] Anion gap [Moles/Vol] 13 mmol/L 10 - 2 0 mmol/L [facility] Calcium [Mass/Vol] 7.7 mg/dL Low 8.4 - 10. 2 mg/dL [facility] Chloride [Moles/Vol] 104 mmol/L 98 - 10 8 mmol/L [facility] Creatinine [Mass/Vol] 1.54 mg/dL High 0.50 - 1.30 [facility] GFR/1.73 sq M predicted among non-blacks MDRD (S/P/Bld) [Vol rate/Area] The eGFR should be used for monitoring renal function only and not for medication dosing. [facility] GFR/1.73 sq M.predicted CKD-EPI (S/P/Bld) [Vol rate/Area] 51 Low >=60 mL/min/1.73 m2 [facility] Glucose [Mass/Vol] 281 mg/dL High 65 - 99 mg/dL [facility] HCO3 [Moles/Vol] 19 mmol/L Low 21 - 32 mmol/L [facility] Interpretation and review of laboratory results Abnormal [facility] Phosphate [Mass/Vol] 2.2 mg/dL Low 2.7 - 4 .5 mg/dL [facility] Potassium [Moles/Vol] 3.8 mmol/L 3.5 - 5.1 mmol/L [facility] Sodium [Moles/Vol] 132 mmol/L Low 135 - 145 mmol/L [facility] Urea nitrogen [Mass/Vol] 36 mg/dL High 8 - 25 mg/dL [facility] Urea nitrogen/Creatinine [Mass ratio] 23.4 mg/mg High [facility] TSHon 11-06-2020 TSH Qn 0.80 m[IU]/L [facility] URINALYSISon 11-06-2020 Bacteria Auto Ql (U) Rare Abnormal None Se en /hpf [facility] Bilirubin Ql (U) Negative Negative [facility] th Clarity Refractometry automated (U) Clear Clear [facility] Color (U) Yellow Colorless, Yellow [facility] Epithelial cells.squamous Auto (Urine sed) [#/Area] <1 [facility] Glucose Auto test strip (U) [Mass/Vol] >=500 Abnormal Negative mg/dL [facility] Hemoglobin Auto test strip Ql (U) Moderate Abnormal Negative [facility] Interpretation and review of laboratory results Abnormal [facility] Ketones (U) [Mass/Vol] 20 Abnormal Negative mg/dL [facility] Leukocyte esterase Auto test strip Ql (U) Negative Negative [facility] Mucus Auto (Urine sed) [#/Area] Rare None Seen, Rare /lpf [facility] Nitrite Auto test strip Ql (U) Negative Negative [facility] pH (U) 5.5 [pH] [facility] Protein (U) [Mass/Vol] 30 Abnormal Negative mg/dL [facility] Comment on above: False positive resul ts may occur in urines with large amounts of hemoglobin, pH greater than 8.0, contrast medium, or disinfectants including ammonium compounds. RBC Auto (Urine sed) [#/Area] 19 High [facility] Specific gravity (U) [Rel density] 1.019 [facility] Urobilinogen (U) [Mass/Vol] <2.0 <2.0 mg/dL [facility] WBC Auto (Urine sed) [#/Area] 1 [facility] Microscopic examination is performed on all urinalysis samples and only positive findings are reported. The test for blood on the chemical analytic portion of urinalysis may also be positive due to hemoglobinuria and myoglobinuria and if red blood cells are present they are quantified by microscopic examination. [facility] XR COMPARISON IMPORTon 11-06 This order has been auto-finalized and does not contain a result. 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 No focal lytic or sclerotic changes. 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 Moderate enthesopathic spurring of the calcaneus. Moderate to severe degenerative changes with joint space narrowing and osteophyte formation suggesting neuropathic osteoarthropathy SOFT TISSUES: Soft tissue swelling of the forefoot with plantar ulcer EFFUSION: None visible. OTHER: Negative. LEFT: BONES: No acute fracture or dislocation. Yltm-fn-tjphlmce degenerative changes throughout the foot. Severe degenerative changes the 1st metatarsophalangeal joint with bony remodeling, ervl-yh-actt articulation and marginal osteophyte formation. Enthesopathic spurring of the calcaneus. SOFT TISSUES: Moderate soft tissue swelling EFFUSION: None visible. OTHER: Negative. IMPRESSION: No definite plain film evidence of osteomyelitis in the right or left foot Workstation ID: [id number] Dictated by: CHESTER LA on WedNov 06, 2020 10:27:44 AM EST Transcribed by: CHESTER LA on WedNov 06, 2020 10:27:44 AM EST Finalized by: CHESTER LA on WedNov 06, 2020 10:27:44 AM EST Normal [facility] Comment on above: Order Comment: Injur y/Trauma or Illness?:Illness/Other How long have you had these symptoms (acute/chronic)?:Acute Reason for exam?:charcot and osteomyeltis History of cancer?: Surgeries, chemotherapy, or radiation?: Type of Exam?:Initial Additional signs and symptoms?:charcot and osteomyeltis XR FOOT RIGHT 3+ VIEWS (JONI DARD)on 11-06-2020 XR FOOT RIGHT 3+ VIEWS (STANDARD) EXAMINATION: XR FOOT RIGHT 3+ VIEWS (STANDARD); XR FOOT LEFT 3+ VIEWS (STANDARD) 11/06/2020 10:20 am; 11/06/2020 10:22 am HISTORY: ORDERING SYSTEM PROVIDED HISTORY: osteomyelitis, TECHNOLOGIST PROVIDED HISTORY: Illness/Other Reason for exam: Secondary DM with DKA (HCC) Cancer History: Surgery, RadiationHistory: Encounter Type: Initial Additional signs and symptoms: Secondary DM with DKA (HCC), no known injury ORDERING SYSTEM PROVIDED DIAGNOSIS CODES: ; 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 No focal lytic or sclerotic changes. 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 Moderate enthesopathic spurring of the calcaneus. Moderate to severe degenerative changes with joint space narrowing and osteophyte formation suggesting neuropathic osteoarthropathy SOFT TISSUES: Soft tissue swelling of the forefoot with plantar ulcer EFFUSION: None visible. OTHER: Negative. LEFT: BONES: No acute fracture or dislocation. Eyyt-ca-cughnblg degenerative changes throughout the foot. Severe degenerative changes the 1st metatarsophalangeal joint with bony remodeling, [id number] articulation and marginal osteophyte formation. Enthesopathic spurring of the calcaneus. SOFT TISSUES: Moderate soft tissue swelling EFFUSION: None visible. OTHER: Negative. IMPRESSION: No definite plain film evidence of osteomyelitis in the right or left foot Workstation ID: [id number] Dictated by: CHESTER LA on WedNov 06, 2020 10:27:44 AM EST Transcribed by: CHESTER LA on WedNov 06, 2020 10:27:44 AM EST Finalized by: CHESTER LA on WedNov 06, 2020 10:27:44 AM EST Normal [facility] Comment on above: Order Comment: Injur y/Trauma or Illness?:Illness/Other How long have you had these symptoms (acute/chronic)?:Acute Reason for exam?:Secondary DM with DKA (HCC) History of cancer?: Surgeries, chemotherapy, or radiation?: Type of Exam?:Initial Additional signs and symptoms?:Secondary DM with DKA (HCC), no known injury Beta-Hydroxybutyrateon 11-05 Beta hydroxybutyrate [Moles/Vol] 1.4 mmol/L High 0 - 0.3 mmol/L [facility] Interpretation and review of laboratory results Abnormal [facility] CBC WITH AUTO DIFFERENTIALon 11-05-2020 Basophils (Bld) [#/Vol] 0.07 10*3/uL [facility] Basophils/100 WBC (Bld) 0.4 % [facility] Eosinophils (Bld) [#/Vol] 0.01 10*3/uL [facility] Eosinophils/100 WBC (Bld) 0.1 % [facility] Erythrocyte distribution width (RBC) [Entitic vol] 15.2 % High 11.6 - 14.8 % [facility] Hematocrit (Bld) [Volume fraction] 37.7 % Low 41 - 53 % [facility] Hemoglobin (Bld) [Mass/Vol] 11.9 g/dL Low 13.5 - 17.5 g/dL [facility] Immature granulocytes (Bld) [#/Vol] 0.10 10*3/uL [facility] Immature granulocytes/100 WBC (Bld) 0.60 % [facility] Comment on above: The IG parameter is the percentage of metamyelocytes, myelocytes and promyelocytes. An immature granulocyte count (IG) of 1% or more suggests the possibility of infection, an IG count of 3% is very likely related to an infection. Interpretation and review of laboratory results Abnormal [facility] Lymphocytes (Bld) [#/Vol] 0.60 10*3/uL Low [facility] Lymphocytes/100 WBC (Bld) 3.8 % [facility] MCH (RBC) [Entitic mass] 26.3 pg 26 - 34 pg [facility] MCHC (RBC) [Mass/Vol] 31.6 g/dL 31 - 37 g/dL [facility] MCV (RBC) [Entitic vol] 83.4 fL 80 - 100 fL [facility] Monocytes (Bld) [#/Vol] 1.71 10*3/uL High [facility] Monocytes/100 WBC (Bld) 10.8 % [facility] Neutrophils (Bld) [#/Vol] 13.36 10*3/uL High [facility] Neutrophils/100 WBC (Bld) 84.3 % [facility] Nucleated RBC (Bld) [#/Vol] 0.00 10*3/uL [facility] Nucleated RBC/100 WBC (Bld) [Ratio] 0.0 % [facility] Platelet mean volume (Bld) [Entitic vol] 11.0 fL 9.4 - 12.4 fL [facility] Platelets (Bld) [#/Vol] 274 10*3/uL [facility] RBC (Bld) [#/Vol] 4.52 10*6/uL [facility] WBC (Bld) [#/Vol] 15.85 10*3/uL [facility] CPK NO MBon 11-05-2020 CK [Catalytic activity/Vol] 98 U/L 60 - 225 U/L [facility] Interpretation and review of laboratory results Normal [facility] CRP, Inflammationon 11-05-20 20 CRP [Mass/Vol] 468.0 mg/L High <=10.0 [facility] Comprehensive Metabolic Pane anuel 11-05-2020 Albumin [Mass/Vol] 1.8 g/dL Low 3.2 - 5.2 g/dL [facility] ALP [Catalytic activity/Vol] 95 U/L 40 - 150 U/L [facility] ALT [Catalytic activity/Vol] 16 U/L 14 - 65 U/L [facility] Anion gap [Moles/Vol] 14 mmol/L 10 - 2 0 mmol/L [facility] AST [Catalytic activity/Vol] 26 U/L 0 - 45 U/L [facility] Bilirubin [Mass/Vol] 0.9 mg/dL 0 - 1.3 mg/dL [facility] Calcium [Mass/Vol] 8.2 mg/dL Low 8.4 - 10. 2 mg/dL [facility] Chloride [Moles/Vol] 97 mmol/L Low 98 - 10 8 mmol/L [facility] Creatinine [Mass/Vol] 1.82 mg/dL High 0.50 - 1.30 [facility] GFR/1.73 sq M predicted among non-blacks MDRD (S/P/Bld) [Vol rate/Area] The eGFR should be used for monitoring renal function only and not for medication dosing. [facility] GFR/1.73 sq M.predicted CKD-EPI (S/P/Bld) [Vol rate/Area] 41 Low >=60 mL/min/1.73 m2 [facility] Glucose [Mass/Vol] 309 mg/dL High 65 - 99 mg/dL [facility] HCO3 [Moles/Vol] 22 mmol/L 21 - 32 mmol/L [facility] Potassium [Moles/Vol] 3.3 mmol/L Low 3.5 - 5.1 mmol/L [facility] Protein [Mass/Vol] 8.1 g/dL High 6 - 8 g/dL [facility] Sodium [Moles/Vol] 130 mmol/L Low 135 - 145 mmol/L [facility] Urea nitrogen [Mass/Vol] 42 mg/dL High 8 - 25 mg/dL [facility] Urea nitrogen/Creatinine [Mass ratio] 23.1 mg/mg High [facility] Lactic Acid, Plasmaon 2019 Interpretation and review of laboratory results Abnormal [facility] Lactate [Moles/Vol] 3.1 mmol/L High 0.6 - 2 mmol/L [facility] MR FOOT LEFT WITH AND WITHOU T CONTRASTon 11-05-2020 MR FOOT LEFT WITH AND WITHOUT CONTRAST EXAMINATION: MR FOOT LEFT WITH AND WITHOUT CONTRAST HISTORY: ORDERING SYSTEM PROVIDED HISTORY: foot infection, TECHNOLOGIST PROVIDED HISTORY: Illness/Other Reason for exam: Non healing wounds lateral / dorsal aspect x 7 days Encounter Type: Initial Additional signs and symptoms: na ORDERING SYSTEM PROVIDED DIAGNOSIS CODES: COMPARISON: Left foot x-rays 11/06/2020. TECHNIQUE: Multiplanar multisequence MRI of the left mid/forefoot was performed with and without IV contrast utilizing 20 mL of Dotarem. This included short-axis T2, short-axis STIR, short-axis T1, short-axis T1 fat-sat, sagittal STIR, sagittal T1, long-axis T1, long-axis STIR with postcontrast short-axis and long-axis T1 imaging with and without fat suppression. CONTRAST: GADOTERATE MEGLUMINE 0.5 MMOL/ML (376.9 MG/ML) INTRAVENOUS SOLUTION - 20 mL, FINDINGS: JOINTS: Marked sclerosis involving the subchondral bones along the navicular-middle cuneiform articulation and 2nd through 5th TMT joints, associated enhancing edema involving the navicular bone, cuneiform bones and 1st through 5th tarsometatarsal joints. Severe osteoarthritis redemonstrated in the 1st MTP joint with joint space narrowing, marginal spur, subchondral cystic change and joint effusion. BONES: No fracture is seen. TENDONS: Visualized flexor and extensor tendons are intact. No long-segment tenosynovitis is seen. PLANTAR FASCIA: The visualized plantar fascia appears intact. SOFT TISSUES: Defect in the dorsal skin surface at the midfoot may be related to debridement with some packing material measuring 3.9 x 1.3 cm, AP by transverse dimension. There is marked enhancement in the soft tissues of the entire foot compatible with cellulitis. Ill-defined absent enhancement is seen along the tarsometatarsal joint which could be related to tissue necrosis. No certain abscess. No evidence of intermetatarsal bursitis. Plantar plates are intact. There is prominent fatty atrophy of the forefoot muscles presumably related to chronic diabetic neuropathy. IMPRESSION: 1. Abnormal appearance of the midfoot particularly at the 2nd through 5th TMT joints and navicular-middle cuneiform articulations. Given the nearby dorsal skin wound, and degree of inflammation, these findings are concerning for multifocal septic arthropathy and osteomyelitis. Superimposed neuropathic arthropathy is not excluded. The talus and calcaneus appear spared. 2. Extensive cellulitis without obvious abscess. There is some nonenhancement along the midfoot concerning for tissue necrosis. 3. 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 4. No tendon tear or tenosynovitis is seen. MPH/mkv Workstation ID: [id number] Dictated by: CHAN OLIVERA on WedNov 06, 2020 9:17:45 PM EST Transcribed by: ZAN JAFFE on WedNov 06, 2020 9:25:35 PM EST Finalized by: CHAN OLIVERA on WedNov 06, 2020 9:27:00 PM EST Normal [facility] Comment on above: Order Comment: Injur y/Trauma or Illness?:Illness/Other How long have you had these symptoms (acute/chronic)?:Acute Reason for exam?:Non healing wounds lateral / dorsal aspect x 7 days Type of Exam?:Initial Additional signs and symptoms?:na MR FOOT RIGHT WITH AND WITHO UT CONTRASTon 11-05-2020 MR FOOT RIGHT WITH AND WITHOUT CONTRAST EXAMINATION: MR FOOT RIGHT WITH AND WITHOUT CONTRAST HISTORY: ORDERING SYSTEM PROVIDED HISTORY: foot infection, TECHNOLOGIST PROVIDED HISTORY: Illness/Other Reason for exam: Non healing wound plantar surface x 3 months Encounter Type: Initial Additional signs and symptoms: na ORDERING SYSTEM PROVIDED DIAGNOSIS CODES: COMPARISON: Right foot x-rays 11/06/2020. TECHNIQUE: Multiplanar multisequence MRI of the right mid/hindfoot was performed without contrast. This included long-axis T1, long-axis STIR, short axis T1 fat-sat, short axis STIR, short axis T1, short axis T2, sagittal STIR, sagittal T1 with postcontrast long axis and short axis T1 fat-sat. CONTRAST: GADOTERATE MEGLUMINE 0.5 MMOL/ML (376.9 MG/ML) INTRAVENOUS SOLUTION - 20 mL, FINDINGS: JOINTS: No talar dome osteochondral lesion is seen. There is [id number] mid and hindfoot osteoarthritis with scattered marginal spur noted. Prior forefoot resection is noted to the 1st and 2nd TMT joints with remnants of the 3rd through 5th metatarsals remaining. BONES: No enhancing edema or marrow infiltrative change involving the tarsal bones or metatarsal remnants. No fracture is seen. LIGAMENTS: There several large ossicles in the expected location of the ATFL compatible with remote sprain. The calcaneal fibular ligament is intact. The posterior talofibular ligament appears intact. Architectural distortion of the deep fibers of the deltoid ligament associated with large ossicle, related to remote sprain. The anterior and posterior tibiofibular ligaments are intact. TENDONS: Postsurgical changes of the tendons at the midfoot is noted. No tenosynovitis is seen. The Achilles tendon is grossly intact, as seen. SINUS TARSI: Normal fat signal is seen sinus tarsi. PLANTAR FASCIA: Large plantar calcaneal spur measures 1.1 cm. TARSAL TUNNEL: No mass lesion in the tarsal tunnel is seen. SOFT TISSUES: There is mild enhancing edema along the forefoot noted. Skin wound/ulceration at the surgical stump overlying the 3rd metatarsal measuring 1.0 cm in transverse dimension. No associated abscess. IMPRESSION: 1. Prior forefoot resection. Cellulitis of the surgical stump is seen associated with small ulceration. 2. No abscess. 3. No MR signs of osteomyelitis. 4. Alfr-jt-[id number] mid/hindfoot osteoarthritis. 5. Remote sprains of the ATFL and deep fibers of the deltoid ligament, as above. MPH/Dizzion Workstation ID: [id number] Dictated by: CHAN OLIVERA on WedNov 06, 2020 8:37:02 PM EST Transcribed by: DEBRA BOLIVAR on WedNov 06, 2020 8:49:17 PM EST Finalized by: CHAN OLIVERA on WedNov 06, 2020 8:58:02 PM EST Normal [facility] Comment on above: Order Comment: Injur y/Trauma or Illness?:Illness/Other How long have you had these symptoms (acute/chronic)?:Acute Reason for exam?:non healing wound on top of foot History of cancer?: Surgeries, chemotherapy, or radiation?: Type of Exam?:Initial Additional signs and symptoms?:pain Magnesiumon 11-05-2020 Interpretation and review of laboratory results Normal [facility] Magnesium [Mass/Vol] 2.0 mg/dL 1.6 - 2 .4 mg/dL [facility] Otheron 11-05-2020 Interpretation and review of laboratory results Abnormal [facility] Phosphoruson 11-05-2020 Phosphate [Mass/Vol] 1.6 mg/dL Low 2.7 - 4 .5 mg/dL [facility] Sedimentation Rateon 020 ESR (Bld) [Velocity] 110 mm/h High [facility] Interpretation and review of laboratory results Abnormal [facility] TROPONINon 11-05-2020 Troponin I.cardiac [Mass/Vol] ng/mL <=45 ng/L [facility] Troponin I.cardiac [Mass/Vol] No biomarker evidence of cardiac injury. [facility] Troponin I.cardiac [Mass/Vol] ng/mL <=45 ng/L [facility] Troponin I.cardiac [Mass/Vol] Normal [facility] XR CHEST PA/APon 11-05-2020 XR CHEST PA/AP EXAMINATION: XR CHEST PA/AP 11/05/2020 7:25 pm HISTORY: ORDERING SYSTEM PROVIDED HISTORY: SOB, TECHNOLOGIST PROVIDED HISTORY: Illness/Other Reason for exam: SOB Cancer History: Surgery, RadiationHistory: Encounter Type: Initial Additional signs and symptoms: n ORDERING SYSTEM PROVIDED DIAGNOSIS CODES: COMPARISON: 12/14/2013 FINDINGS: Shallow lungs. Patchy right basilar opacity could be atelectasis or developing pneumonia. Heart size is stable. No pleural effusion or pneumothorax. No acute osseous abnormality. IMPRESSION: Shallow lungs with right basilar opacity, could be atelectasis or pneumonia Workstation ID: [id number] Dictated by: BRAEDEN LEGGETT on WedNov 05, 2020 8:04:45 PM EST Transcribed by: BRAEDEN LEGGETT on WedNov 05, 2020 8:04:45 PM EST Finalized by: BRAEDEN LEGGETT on WedNov 05, 2020 8:04:45 PM EST Normal [facility] Comment on above: Order Comment: Injur y/Trauma or Illness?:Illness/Other How long have you had these symptoms (acute/chronic)?:Acute Reason for exam?:SOB History of cancer?: Surgeries, chemotherapy, or radiation?: Type of Exam?:Initial Additional signs and symptoms?:n XR Chest 1 Viewon 11-05-2020 Interface, Rad In Fu ji Speechq - 11/05/2020 8:07 PM EST EXAMINATION: XR CHEST PA/AP 11/05/2020 7:25 pm HISTORY: ORDERING SYSTEM PROVIDED HISTORY: SOB, TECHNOLOGIST PROVIDED HISTORY: Illness/Other Reason for exam: SOB Cancer History: Surgery, RadiationHistory: Encounter Type: Initial Additional signs and symptoms: n ORDERING SYSTEM PROVIDED DIAGNOSIS CODES: COMPARISON: 12/14/2013 FINDINGS: Shallow lungs. Patchy right basilar opacity could be atelectasis or developing pneumonia. Heart size is stable. No pleural effusion or pneumothorax. No acute osseous abnormality. IMPRESSION: Shallow lungs with right basilar opacity, could be atelectasis or pneumonia Workstation ID: [id number] [facility] EXAMINATION: XR CHES T PA/AP 11/05/2020 7:25 pm HISTORY: ORDERING SYSTEM PROVIDED HISTORY: SOB, TECHNOLOGIST PROVIDED HISTORY: Illness/Other Reason for exam: SOB Cancer History: Surgery, RadiationHistory: Encounter Type: Initial Additional signs and symptoms: n ORDERING SYSTEM PROVIDED DIAGNOSIS CODES: COMPARISON: 12/14/2013 FINDINGS: Shallow lungs. Patchy right basilar opacity could be atelectasis or developing pneumonia. Heart size is stable. No pleural effusion or pneumothorax. No acute osseous abnormality. [facility] Shallow lungs with right basilar opacity, could be atelectasis or pneumonia Workstation ID: [id number] [facility] HEMOGLOBIN A1Con 12-26-2018 Hemoglobin A1c/Hemoglobin.total mass fraction (Bld) 7.6 % High 4.0-6.0 [facility] Comment on above: Performed By: #### [id number] #### [facility] [address] [place] [address], [place] Hemoglobin A1c/Hemoglobin.total mass fraction (Bld) 171 mg/dL High 70-126 [facility] Comment on above: Performed By: #### [id number] #### [facility] Nidhi REYESFrankie [address] Vital Signs Date Time Vital Sign Value Performing Clinician Facility 05-10-2025 09:29-0400 Body mass index (BMI) [Ratio] 38.11 kg/m2 Art Tracy [facility]WARZ [facility] 05-10-2025 09:29-0400 Body temperature 97.81 [degF] Art Gutierrezlauren [facility]ARZ [facility] 05-10-2025 09:29-0400 Body weight 115.39 kg Art Tracy SCHWARZ [facility] 05-10-2025 09:29-0400 Diastolic blood pressure 72 mm[Hg] Art Tracy SCHWARZ [facility] 05-10-2025 09:29-0400 Heart rate 90 /min Art Freeman DO [facility] 05-10-2025 09:29-0400 SaO2% (BldA) [Mass fraction] 95 % Art Freeman DO [facility] 05-10-2025 09:29-0400 Systolic blood pressure 110 mm[Hg] Art Tracy SCHWARZ [facility] 04-26-2025 14:12-0400 Body height 174 cm Art Freeman DO [facility] 04-26-2025 14:12-0400 Body mass index (BMI) [Ratio] 38.05 kg/m2 Art Freeman DO [facility] 04-26-2025 14:12-0400 Body temperature 98.1 [degF] Art Freeman Work Phone: [facility] 04-26-2025 14:12-0400 Body weight 115.21 kg Art Freeman DO Work Phone: [facility] 04-26-2025 14:12-0400 Diastolic blood pressure 82 mm[Hg] Art Freeman DO Work Phone: [facility] 04-26-2025 14:12-0400 Heart rate 95 /min Art Freeman DO Work Phone: [facility] 04-26-2025 14:12-0400 SaO2% (BldA) [Mass fraction] 96 % Art Freeman DO Work Phone: [facility] 04-26-2025 14:12-0400 Systolic blood pressure 118 mm[Hg] Art Freeman DO Work Phone: [facility] 04-24-2025 09:00-0400 Body temperature 97.7 [degF] Sherri Kaitlynn [employer] P[employer] Work Phone: [facility] 04-24-2025 09:00-0400 Diastolic blood pressure 81 mm[Hg] Sherri Kaitlynn [employer]ING[employer] PERSON Work Phone: [facility] 04-24-2025 09:00-0400 Heart rate 97 /min Sherri Davenport [employer]ING[employer] PERSON Work Phone: [facility] 04-24-2025 09:00-0400 Respiratory rate 16 /min Sherri Kaitlynn [employer]UCK [employer]IVING[employer]BOX PERSON Work Phone: [facility] 04-24-2025 09:00-0400 Systolic blood pressure 116 mm[Hg] Sherri Davenport [employer]UCK DRIVING[employer]BOX PERSON Work Phone: [facility] 04-11-2025 10:36-0400 Body temperature 97.5 [degF] Sherri Davenport [employer]UCK [employer]IVING[employer]BOX PERSON Work Phone: [facility] 04-11-2025 10:36-0400 Diastolic blood pressure 73 mm[Hg] Sherri Kaitlynn [employer]UCK DRIVING[employer]BOX PERSON Work Phone: [facility] 04-11-2025 10:36-0400 Heart rate 100 /min Sherri Garcia [employer]ING[employer] PERSON Work Phone: [facility] 04-11-2025 10:36-0400 Respiratory rate 16 /min Sherri Garcia [employer]UCK [employer]IVING[employer]BOX PERSON Work Phone: [facility] 04-11-2025 10:36-0400 Systolic blood pressure 157 mm[Hg] Sherri Garcia [employer]UCK [employer]IVING[employer]BOX PERSON Work Phone: [facility] 03-28-2025 10:56-0400 Body temperature 97.7 [degF] Sherri Garcia [employer]UCK DRIVING[employer]BOX PERSON Work Phone: [facility] 03-28-2025 10:56-0400 Diastolic blood pressure 85 mm[Hg] Sherri Garcia [employer]UCK [employer]IVING[employer]BOX PERSON Work Phone: [facility] 03-28-2025 10:56-0400 Heart rate 94 /min Sherri Garcia APRN-BOX PERSON Work Phone: [facility] 03-28-2025 10:56-0400 Respiratory rate 16 /min Sherri Garcia [employer]UCK [employer]IVING[employer] PERSON Work Phone: [facility] 03-28-2025 10:56-0400 Systolic blood pressure 144 mm[Hg] Sherri Garcia [employer]UCK [employer]IVING[employer]BOX PERSON Work Phone: [facility] 05-09-2024 14:19-0400 Body height 177.8 cm Cheng Staples Work Phone: [facility] 05-09-2024 14:19-0400 Body mass index (BMI) [Ratio] 38.4 kg/m2 Cheng Cameliahsenaz Work Phone: [facility] 05-09-2024 14:19-0400 Body weight 121.56 kg Cheng Cameliahsenaz Work Phone: [facility] 02-03-2024 14:52-0400 Diastolic blood pressure 70 mm[Hg] Cheng Staples Work Phone: [facility] 02-03-2024 14:52-0400 Heart rate 88 /min Cheng Aichholz Work Phone: [facility] 02-03-2024 14:52-0400 Respiratory rate 16 /min Cheng Aichholz Work Phone: [facility] 02-03-2024 14:52-0400 SaO2% (BldA) [Mass fraction] 98 % Cheng Aichholz Work Phone: [facility] 02-03-2024 14:52-0400 Systolic blood pressure 114 mm[Hg] Cheng Aichholz Work Phone: [facility] 02-03-2024 12:58-0400 Body height 177.8 cm Cheng Aichholz Work Phone: [facility] 02-03-2024 12:58-0400 Body weight 117.02 kg Cheng Aichholz Work Phone: [facility] 01-07-2024 11:03-0500 Body weight 117.02 kg Cheng Aichholz Work Phone: [facility] 01-07-2024 11:03-0500 Diastolic blood pressure 78 mm[Hg] Cheng Aichholz Work Phone: [facility] 01-07-2024 11:03-0500 Heart rate 95 /min Cheng Aichholz Work Phone: [facility] 01-07-2024 11:03-0500 Systolic blood pressure 120 mm[Hg] Cheng Aichholz Work Phone: [facility] 11-08-2023 15:00-0500 Body height 177.8 cm Tondra Mapus Other [facility] 11-08-2023 15:00-0500 Body mass index (BMI) [Ratio] 36.94 kg/m2 Tondra Mapus Other [facility] Other 11-08-2023 15:00-0500 Body weight 116.8 kg Tondra Mapus Other [facility] 11-08-2023 15:00-0500 Diastolic blood pressure 77 mm[Hg] Tondra Mapus Other [facility] 11-08-2023 15:00-0500 Respiratory rate 18 /min Tondra Mapus Other [facility] Other 11-08-2023 15:00-0500 SaO2% (BldA) [Mass fraction] 95 % Tondra Mapus Other [facility] Other 11-08-2023 15:00-0500 Systolic blood pressure 121 mm[Hg] Tondra Mapus Other [facility] 08-25-2023 10:00-0400 Body height 177.8 cm Maxi John Other [facility] Other 08-25-2023 10:00-0400 Body mass index (BMI) [Ratio] 35.97 kg/m2 Maxi John Other [facility] Other 08-25-2023 10:00-0400 Body weight 113.72 kg Maxi Dora Other [facility] Other 08-25-2023 10:00-0400 Diastolic blood pressure 69 mm[Hg] Maxi Arshadovanner Other [facility] Other 08-25-2023 10:00-0400 Systolic blood pressure 104 mm[Hg] Maxi Scovanner Other [facility] Other 02-23-2023 11:00-0400 Body height 177.8 cm Amor Angiey Other [facility] Other 02-23-2023 11:00-0400 Body mass index (BMI) [Ratio] 34.43 kg/m2 Amor Ditty Other [facility] Other 02-23-2023 11:00-0400 Body weight 108.86 kg Amor Ditty Other [facility] Other 02-23-2023 11:00-0400 Diastolic blood pressure 68 mm[Hg] Amor Ditty Other [facility] Other 02-23-2023 11:00-0400 Systolic blood pressure 111 mm[Hg] Amor Ditty Other [facility] Other 08-25-2022 11:00-0400 Body height 177.8 cm Amor Ditty Other [facility] Other 08-25-2022 11:00-0400 Body mass index (BMI) [Ratio] 34.15 kg/m2 Amor Heaventty Other [facility] Other 08-25-2022 11:00-0400 Body weight 107.96 kg Amor Ditty Other [facility] Other 08-25-2022 11:00-0400 Diastolic blood pressure 82 mm[Hg] Amor Ditty Other [facility] Other 08-25-2022 11:00-0400 Systolic blood pressure 134 mm[Hg] Amor Ditty Other [facility] Other 02-06-2021 13:44-0400 Body Temperature 97.9 [degF] [facility] 02-06-2021 13:44-0400 BP Diastolic 60 mm[Hg] [facility] 02-06-2021 13:44-0400 BP Systolic 102 mm[Hg] [facility] 02-06-2021 13:44-0400 Pulse (Heart Rate) 129 /min [facility] 02-06-2021 13:44-0400 Pulse Oximetry 96 % [facility] 02-06-2021 13:44-0400 Respiratory Rate 16 /min [facility] 01-09-2021 14:15-0500 Body Temperature 97.2 [degF] [facility] 01-09-2021 14:15-0500 BP Diastolic 64 mm[Hg] [facility] 01-09-2021 14:15-0500 BP Systolic 95 mm[Hg] [facility] 01-09-2021 14:15-0500 Pulse (Heart Rate) 106 /min [facility] 01-09-2021 14:15-0500 Pulse Oximetry 97 % [facility] 01-09-2021 14:15-0500 Respiratory Rate 12 /min [facility] 12-27-2020 10:35-0500 Body Temperature 98.1 [degF] [facility] 12-27-2020 10:35-0500 BP Diastolic 73 mm[Hg] [facility] 12-27-2020 10:35-0500 BP Systolic 122 mm[Hg] [facility] 12-27-2020 10:35-0500 Pulse (Heart Rate) 108 /min [facility] 12-27-2020 10:35-0500 Pulse Oximetry 96 % [facility] 12-27-2020 10:35-0500 Respiratory Rate 18 /min [facility] 12-19-2020 14:09-0500 Body Temperature 97.81 [degF] [facility] 12-19-2020 14:09-0500 BP Diastolic 99 mm[Hg] [facility] 12-19-2020 14:09-0500 BP Systolic 146 mm[Hg] [facility] 12-19-2020 14:09-0500 Pulse (Heart Rate) 101 /min [facility] 12-19-2020 14:09-0500 Pulse Oximetry 98 % [facility] 12-19-2020 14:09-0500 Respiratory Rate 18 /min [facility] 11-21-2020 11:38-0500 Body Temperature 98.01 [degF] [facility] 11-21-2020 11:38-0500 BP Diastolic 74 mm[Hg] [facility] 11-21-2020 11:38-0500 BP Systolic 109 mm[Hg] [facility] 11-21-2020 11:38-0500 Pulse (Heart Rate) 96 /min [facility] 11-21-2020 11:38-0500 Pulse Oximetry 93 % [facility] 11-21-2020 11:38-0500 Respiratory Rate 18 /min [facility] 11-18-2020 11:38-0500 BMI (Body Mass Index) 33.21 kg/m2 [facility] 11-18-2020 11:38-0500 Body weight 105 kg [facility] 11-18-2020 11:38-0500 Height 177.8 cm [facility] Encounters Encounter Date Encounter Type Care Provider Facility Start: 05-16-2025 End: 05-16-2025 Orders Only Art Freeman DO Work Phone: [facility] Comment on above: Type 2 diabetes brandon itus with foot ulcer, with long-term current use of insulin ([facility]) (Primary Dx) Start: 05-13-2025 End: 05-16-2025 Refill Art Freeman DO Work Phone: [facility] Comment on above: Type 2 diabetes brandon itus with foot ulcer, with long-term current use of insulin ([facility]) Start: 05-10-2025 End: 05-10-2025 Office outpatient visit 25 minutes Art Freeman DO Work Phone: [facility] Comment on above: Type 2 diabetes brandon itus with foot ulcer, with long-term current use of insulin ([facility]); Benign essential HTN; Gastroesophageal reflux disease, unspecified whether esophagitis present; Chronic midline low back pain without sciatica; Encounter for screening for malignant neoplasm of prostate; Fatigue, unspecified type Start: 05-10-2025 End: 05-10-2025 ambulatory [facility] Start: 05-02-2025 End: 05-02-2025 ambulatory [facility] Start: 04-26-2025 End: 04-26-2025 Office outpatient new 45 minutes Art Freeman DO Work Phone: [facility] Comment on above: Benign essential HTN (Primary Dx); Type 2 diabetes mellitus with foot ulcer, with long-term current use of insulin ([facility]); Chronic midline low back pain without sciatica; Fatty liver disease, nonalcoholic; Visit for wound check; Hyperglycemia; Gastroesophageal reflux disease, unspecified whether esophagitis present Start: 04-26-2025 End: 04-26-2025 ambulatory [facility] Start: 04-24-2025 End: 04-24-2025 ambulatory SHERRI GARCIA [facility] Start: 04-24-2025 End: 04-24-2025 Patient encounter procedure Sherri Garcia TRUCK DRIVING-BOX PERSON Work Phone: [facility] Comment on above: Diabetic ulcer of ri ght midfoot associated with type 2 diabetes mellitus, with muscle involvement without evidence of necrosis ([facility]) (Primary Dx); 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 ([facility]) Start: 04-20-2025 End: 04-20-2025 ambulatory Jerome Del Toro DO Work Phone: [facility] Start: 04-18-2025 End: 04-18-2025 Telephone encounter Jerome Del Toro DO Work Phone: General Surgery Comment on above: Care Coordination (A ppeal for GPOEM denial ) Start: 04-11-2025 End: 04-11-2025 Patient encounter procedure Sherri Garcia TRUCK DRIVING-BOX PERSON Work Phone: [facility] Comment on above: Diabetic ulcer of ri ght midfoot associated with type 2 diabetes mellitus, with muscle involvement without evidence of necrosis (CMS-HCC) (Primary Dx); History of transmetatarsal amputation of right foot (CMS-HCC); 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); Wound, open, foot with complication, left, initial encounter; Unstable ankle, right Start: 04-11-2025 End: 04-11-2025 ambulatory SHERRI GARCIA [facility] Start: 04-10-2025 End: 04-10-2025 ambulatory ART FIGUEREDO Facility:[facility] Start: 04-10-2025 End: 04-10-2025 ambulatory JEROME DEL TORO Facility:[facility] Start: 04-05-2025 End: 04-05-2025 Telephone encounter Art Figueredo DO Work Phone: Gastroenterology Comment on above: Care Coordination (G astroparesis clinic: chart review; new patient call ) Start: 03-28-2025 End: 03-28-2025 Office outpatient new 20 minutes Sherri Hollins Kaitlynn TRUCK DRIVING-BOX PERSON Work Phone: [facility] Comment on above: Diabetic ulcer of ri ght midfoot associated with type 2 diabetes mellitus, with muscle involvement without evidence of necrosis (CMS-HCC) (Primary Dx); History of transmetatarsal amputation of right foot (CMS-HCC); Visit for wound check Start: 03-28-2025 End: 03-28-2025 ambulatory SHERRI GARCIA [facility] Start: 03-04-2025 End: 03-04-2025 Emergency department patient visit NO PCP NO PCP [facility] Start: 11-21-2024 End: 11-21-2024 Telephone encounter Davida Price MD Work Phone: Gastroenterology Comment on above: Ct Scan Tech - O ther (Dr Yoon's office/request for office note) Start: 10-24-2024 End: 10-24-2024 ambulatory DAVIDA LEMBO Facility:[facility] Start: 06-22-2024 Telephone encounter Art Figueredo Work Phone: Gastroenterology Start: 06-12-2024 End: 06-12-2024 Patient encounter procedure Chengrachana Staples Work Phone: [facility] Work Phone: Start: 06-12-2024 End: 06-12-2024 ambulatory Cheng Brown Strattonz Work Phone: [facility] Work Phone: Start: 06-06-2024 End: 06-06-2024 Patient encounter procedure Cheng Viralz Work Phone: [facility] Work Phone: Start: 06-06-2024 End: 06-06-2024 ambulatory Cheng Brown Denisehholz Work Phone: [facility] Work Phone: Start: 05-09-2024 End: 05-09-2024 Patient encounter procedure Cheng Viralz Work Phone: [facility] Work Phone: Start: 03-13-2024 End: 03-13-2024 ambulatory CHENG VIRALZ Not Available Start: 02-03-2024 Non-patient / Non-visit Cheng Rachana plummer Work Phone: [facility] Work Phone: Start: 02-03-2024 End: 02-03-2024 Admission to same day surgery center Cheng Staples Work Phone: [facility] Work Phone: Start: 02-03-2024 End: 02-03-2024 ambulatory Cheng Dasilva Cameliaradhajesi Work Phone: [facility] Work Phone: Start: 01-07-2024 End: 01-07-2024 Patient encounter procedure Cheng Chaosenagosia Work Phone: [facility] Work Phone: Start: 01-06-2024 End: 01-06-2024 ambulatory CHENG CHAOSENAGosia Not Available Start: 01-06-2024 Bamboo flowsheet Cheng Chaojesi DRYING ROOM ATTENDANT Work Phone: [facility] Start: 01-06-2024 Bamboo flowsheet Cheng Chaojesi DRYING ROOM ATTENDANT Work Phone: [facility] Start: 11-25-2023 End: 11-25-2023 ambulatory Maxi John Other [employer] Other Start: 11-25-2023 Office outpatient vi sit 15 minutes Maxi Arshadovansonai [facility] Start: 11-25-2023 Patient encounter procedure Cheng Staples Work Phone: [facility]- Start: 11-09-2023 End: 11-09-2023 ambulatory Tondra Tyrell Other [employer] Other Start: 11-09-2023 Telephone encounter Tondra Tyrell [facility] Start: 11-08-2023 End: 11-08-2023 Discharged Recurring Cheng Bel Work Phone: [facility] Work Phone: Start: 11-08-2023 End: 11-08-2023 ambulatory Cheng Dasilva Cameliaradhajesi Work Phone: [employer] Other Start: 11-08-2023 [facility] Start: 11-08-2023 End: 11-08-2023 Patient encounter procedure Cheng Staples Work Phone: [facility] Work Phone: Start: 11-02-2023 End: 11-02-2023 ambulatory CHENG STAPLES Not Available Start: 09-15-2023 End: 09-15-2023 ambulatory Iva Avendañot Other [employer] Other Start: 09-15-2023 Telephone encounter Iva Bernard [facility] Start: 09-13-2023 End: 09-13-2023 ambulatory Iva Fitt Other [employer] Other Start: 09-13-2023 Telephone encounter Ivaesdras Avendañot [facility] Start: 08-25-2023 End: 08-25-2023 ambulatory Maxi John Other [employer] Other Start: 08-25-2023 Office outpatient vi sit 15 minutes Maxi John [facility] Start: 03-18-2023 End: 03-19-2023 ambulatory FELIZ ISAACI Facility: Start: 02-23-2023 End: 02-23-2023 ambulatory Amor Adamsy Other [employer] Other Start: 02-23-2023 Patient encounter procedure Amor Adamsy [facility] Start: 08-25-2022 End: 08-25-2022 ambulatory Amor Adamsy Other [employer] Other Start: 08-25-2022 Patient encounter procedure Amor Adamsy [facility] Start: 04-02-2021 End: 04-02-2021 ambulatory PRINCE JORGE [facility] Start: 02-06-2021 End: 02-06-2021 Patient encounter procedure MARCELLA BELL [facility] Start: 02-06-2021 End: 02-06-2021 Patient encounter procedure Marcellajenna Bell Work Phone: [facility] Comment on above: Foot abscess, left ( Primary Dx) Start: 01-29-2021 End: 01-29-2021 Orders Only Tsering Silvestre Work Phone: [facility] Start: 01-24-2021 End: 01-25-2021 Patient encounter procedure [facility] Start: 01-24-2021 End: 01-24-2021 Patient encounter procedure Leanne Millicent Cherry Work Phone: [facility] Comment on above: Foot abscess, left ( Primary Dx); Charcot foot due to diabetes mellitus (HCC); MSSA (methicillin susceptible Staphylococcus aureus) infection Start: 01-24-2021 End: 01-24-2021 Office outpatient visit 15 minutes Leannerachana Milianr Work Phone: [facility] Comment on above: Subacute osteomyelit is of left foot (HCC) (Primary Dx) Start: 01-09-2021 End: 01-10-2021 Patient encounter procedure [facility] Start: 01-09-2021 End: 01-09-2021 Subsequent hospital visit by physician Leannerachana Cherry Work Phone: [facility] Comment on above: Arrived Start: 01-09-2021 End: 01-09-2021 [facility] Work [facility] Comment on above: Charcot's joint of a nkle, unspecified laterality (Primary Dx) Start: 01-09-2021 End: 01-09-2021 Patient encounter procedure Marcellajenna Bell Work Phone: [facility] Comment on above: Subacute osteomyelit is of left foot (HCC) (Primary Dx) Start: 12-27-2020 End: 12-27-2020 Patient encounter procedure LEANNE CHERRY [facility] Start: 12-27-2020 End: 12-27-2020 Office outpatient visit 15 minutes Leanne Cherry Work Phone: [facility] Comment on above: Subacute osteomyelit is of left foot (HCC) (Primary Dx); Charcot's joint of ankle, unspecified laterality Start: 12-19-2020 End: 12-19-2020 Patient encounter procedure MARCELLA BELL [facility] Start: 12-19-2020 End: 12-19-2020 Patient encounter procedure Marcella Bell Work Phone: [facility] Comment on above: Subacute osteomyelit is of left foot (HCC) (Primary Dx) Start: 11-20-2020 End: 11-20-2020 Documentation procedure Phu Dasilva [facility] Start: 11-20-2020 Patient encounter procedure PHU J [facility] Start: 11-05-2020 End: 11-21-2020 Evaluation and management of inpatient PROVIDER NOT IN SYSTEM [facility] Start: 11-05-2020 End: 11-21-2020 Evaluation and management of inpatient Generic [facility] Work Phone: [facility] Comment on above: Other acute osteomye litis of left foot (HCC) (Primary Dx); Uncontrolled type 2 diabetes mellitus with peripheral neuropathy (HCC); Secondary DM with DKA (HCC); 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, with long-term current use of insulin, macular edema presence unspecified, unspecified proliferative retinopathy type (HCC) Start: 12-26-2018 End: 12-27-2018 Patient encounter procedure JAVI FIGUEROA Facility:[facility] Procedures Date Procedure Procedure Detail Performing Clinician Start: 05-10-2025 Follow-up visit Follow-up ART FREEMAN Start: 05-10-2025 Adult depression screening assessment Art Freeman DO Work Phone: Start: 04-26-2025 Adult depression screening assessment Art Freeman DO Work Phone: Start: 04-24-2025 NURSING COMMUNICATION Sherri Garcia TRUCK DRIVING-BOX PERSON Work Phone: Start: 04-24-2025 Other immobilization, pressure, and attention to wound Sherri Garcia TRUCK DRIVING-BOX PERSON Work Phone: Start: 04-11-2025 NURSING COMMUNICATION Sherri Garcia TRUCK DRIVING-BOX PERSON Work Phone: Start: 04-11-2025 Other immobilization, pressure, and attention to wound Sherri Garcia TRUCK DRIVING-BOX PERSON Work Phone: Start: 03-28-2025 Other immobilization, pressure, and attention to wound Sherri Garcia TRUCK DRIVING-BOX PERSON Work Phone: Start: 06-12-2024 Radionuclide gastric emptying study Cheng Staples Work Phone: Start: 06-06-2024 Computed tomography of abdomen and pelvis with contrast Cheng Bel Work Phone: Start: 05-01-2024 Lipid 1996 panel - Serum or Plasma Nicolas Price MD Work Phone: Start: 05-01-2024 Microalbumin [Mass/volume] in Urine by Test strip Sherri Garcia TRUCK DRIVING-BOX PERSON Work Phone: Start: 02-03-2024 Esophagogastroduodenoscopy Cheng Staples Work Phone: Start: 01-09-2021 X-ray of left ankle Leanne Millicent Reeceeler Work Phone: Start: 01-09-2021 X-ray of left foot Leanne Sabry Dilip Work Phone: Start: 12-27-2020 Aerobic microbial culture Leanne Sabusman Nikita ler Work Phone: Start: 12-27-2020 Bacteria identified in Bone by Aerobe culture Leanne Sabry [place] Work Phone: Start: 12-27-2020 BIOPSY Leanne Sabry Dilip Work Phone: Start: 11-21-2020 Glucose [Mass/volume] in Blood Palak Arora Work Phone: Start: 11-21-2020 Glucose [Mass/volume] in Blood [facility] Gold [employer] Work Phone: Start: 11-21-2020 Glucose [Mass/volume] in Blood [facility] [employer] Work Phone: Start: 11-21-2020 Basic metabolic 2000 panel - Serum or Plasma [employer] Work Phone: Start: 11-21-2020 Complete blood count (hemogram) panel - Blood by Automated count [employer] Work Phone: Start: 11-21-2020 Magnesium [Mass/volume] in Serum or Plasma [employer] Work Phone: Start: 11-20-2020 Glucose [Mass/volume] in Blood [facility] alison Cadetlerachell Work Phone: Start: 11-20-2020 Glucose [Mass/volume] in Blood [facility] alison Arora Work Phone: Start: 11-20-2020 Glucose [Mass/volume] in Blood [facility] alison Gonzalezm Work Phone: Start: 11-20-2020 Glucose [Mass/volume] in Blood Flako Pinedo Work Phone: Start: 11-20-2020 Basic metabolic 2000 panel - Serum or Plasma [employer] Work Phone: Start: 11-20-2020 C reactive protein [Mass/volume] in Serum or Plasma Jai Hodgen Work Phone: Start: 11-20-2020 Complete blood count (hemogram) panel - Blood by Automated count [employer] Work Phone: Start: 11-20-2020 Erythrocyte sedimentation rate by Westergren method Jaidc Mckeonlon Work Phone: Start: 11-20-2020 Magnesium [Mass/volume] in Serum or Plasma [employer] Work Phone: Start: 11-19-2020 Glucose [Mass/volume] in Blood Flako Pinedo Work Phone: Start: 11-19-2020 Glucose [Mass/volume] in Blood Flako Pinedo Work Phone: Start: 11-19-2020 Glucose [Mass/volume] in Blood Flako Pinedo Work Phone: Start: 11-19-2020 Glucose [Mass/volume] in Blood Flako Pinedo Work Phone: Start: 11-19-2020 Basic metabolic 2000 panel - Serum or Plasma [employer] Work Phone: Start: 11-19-2020 Complete blood count (hemogram) panel - Blood by Automated count [employer] Work Phone: Start: 11-19-2020 Magnesium [Mass/volume] in Serum or Plasma [employer] Work Phone: Start: 11-18-2020 Glucose [Mass/volume] in Blood Flako Pinedo Work Phone: Start: 11-18-2020 Glucose [Mass/volume] in Blood Flako Pinedo Work Phone: Start: 11-18-2020 Glucose [Mass/volume] in Blood Flako Pinedo Work Phone: Start: 11-18-2020 Procedure on tissue specimen Leanne Cherry Work Phone: Start: 11-18-2020 Bacteria identified in Bone by Aerobe culture Leanne Cherry Work Phone: Start: 11-18-2020 Bacteria identified in Unspecified specimen by Anaerobe culture Leanne Cherry Work Phone: Start: 11-18-2020 End: 11-18-2020 INCISION AND DRAINAGE FOOT/ANKLE Leanne Cherry Work Phone: Start: 11-18-2020 Glucose [Mass/volume] in Blood Flako Pinedo Work Phone: Start: 11-18-2020 Basic metabolic 2000 panel - Serum or Plasma [employer] Work Phone: Start: 11-18-2020 C reactive protein [Mass/volume] in Serum or Plasma Leanne Cherry Work Phone: Start: 11-18-2020 Complete blood count (hemogram) panel - Blood by Automated count [employer] Work Phone: Start: 11-18-2020 Erythrocyte sedimentation rate by Westergren method Leanne Cherry Work Phone: Start: 11-18-2020 Magnesium [Mass/volume] in Serum or Plasma [employer] Work Phone: Start: 11-17-2020 Glucose [Mass/volume] in Blood Flako Pinedo Work Phone: Start: 11-17-2020 aPTT in Blood by Coagulation assay rBaeden Conte Work Phone: Start: 11-17-2020 Glucose [Mass/volume] in Blood Flako Pinedo Work Phone: Start: 11-17-2020 Glucose [Mass/volume] in Blood Flako Pinedo Work Phone: Start: 11-17-2020 Aerobic microbial culture Braeden Conte Work Phone: Start: 11-17-2020 Glucose [Mass/volume] in Blood Flako Pinedo Work Phone: Start: 11-17-2020 Basic metabolic 2000 panel - Serum or Plasma [employer] Work Phone: Start: 11-17-2020 Complete blood count with white cell differential, automated Braeden Conte Work Phone: Start: 11-17-2020 Complete blood count with white cell differential, manual Braeden Conte Work Phone: Start: 11-17-2020 Magnesium [Mass/volume] in Serum or Plasma [employer] Ari[employer] Work Phone: Start: 11-16-2020 Glucose [Mass/volume] in Blood Flako Pinedo Work Phone: Start: 11-16-2020 Glucose [Mass/volume] in Blood Flako Pinedo Work Phone: Start: 11-16-2020 Glucose [Mass/volume] in Blood Flako Pinedo Work Phone: Start: 11-16-2020 Glucose [Mass/volume] in Blood Flako Pinedo Work Phone: Start: 11-16-2020 Basic metabolic 2000 panel - Serum or Plasma [employer] Work Phone: Start: 11-16-2020 Complete blood count (hemogram) panel - Blood by Automated count [employer] Hugo Work Phone: Start: 11-16-2020 Erythrocyte sedimentation rate by Westergren method Braeden Conte Work Phone: Start: 11-16-2020 Magnesium [Mass/volume] in Serum or Plasma [employer] Work Phone: Start: 11-15-2020 Glucose [Mass/volume] in Blood Flako Pinedo Work Phone: Start: 11-15-2020 X-ray of left foot Braeden Conte Work Phone: Start: 11-15-2020 Glucose [Mass/volume] in Blood Flako Pinedo Work Phone: Start: 11-15-2020 Glucose [Mass/volume] in Blood Flako Pinedo Work Phone: Start: 11-15-2020 Ct abdomen & pelvis w/o contrast material [employer] Work Phone: Start: 11-15-2020 Glucose [Mass/volume] in Blood Flako Pinedo Work Phone: Start: 11-15-2020 Basic metabolic 2000 panel - Serum or Plasma Chuyita Arias Work Phone: Start: 11-15-2020 Complete blood count (hemogram) panel - Blood by Automated count Chuyita Arias Work Phone: Start: 11-15-2020 Magnesium [Mass/volume] in Serum or Plasma [employer] Work Phone: Start: 11-14-2020 Glucose [Mass/volume] in Blood Flako Pinedo Work Phone: Start: 11-14-2020 Glucose [Mass/volume] in Blood Flako Pinedo Work Phone: Start: 11-14-2020 Glucose [Mass/volume] in Blood Flako Pinedo Work Phone: Start: 11-14-2020 Glucose [Mass/volume] in Blood Flako Pinedo Work Phone: Start: 11-14-2020 Basic metabolic 2000 panel - Serum or Plasma [employer] Work Phone: Start: 11-14-2020 Complete blood count (hemogram) panel - Blood by Automated count Chuyita Arias Work Phone: Start: 11-14-2020 Magnesium [Mass/volume] in Serum or Plasma [employer] Work Phone: Start: 11-13-2020 Glucose [Mass/volume] in Blood Flako Pinedo Work Phone: Start: 11-13-2020 Glucose [Mass/volume] in Blood Flako Pinedo Work Phone: Start: 11-13-2020 Doppler ultrasonography of artery of lower limb Jai Kumar Work Phone: Start: 11-13-2020 Gastric emptying imaging study Chuyita Seals [facility] Work Phone: Start: 11-13-2020 Glucose [Mass/volume] in Blood Flako Pinedo Work Phone: Start: 11-13-2020 Glucose [Mass/volume] in Blood Flako Pinedo Work Phone: Start: 11-13-2020 Basic metabolic 2000 panel - Serum or Plasma [employer] Work Phone: Start: 11-13-2020 Complete blood count (hemogram) panel - Blood by Automated count [employer] Work Phone: Start: 11-13-2020 Magnesium [Mass/volume] in Serum or Plasma [employer] Work Phone: Start: 11-12-2020 Glucose [Mass/volume] in Blood Flako Pinedo Work Phone: Start: 11-12-2020 Glucose [Mass/volume] in Blood Flako Pinedo Work Phone: Start: 11-12-2020 Glucose [Mass/volume] in Blood Flako Pinedo Work Phone: Start: 11-12-2020 COVID-19/INFLUENZA A,B MOLECULAR [employer] Work Phone: Start: 11-12-2020 Glucose [Mass/volume] in Blood Flako Pinedo Work Phone: Start: 11-12-2020 Basic metabolic 2000 panel - Serum or Plasma [employer] Work Phone: Start: 11-12-2020 Complete blood count (hemogram) panel - Blood by Automated count [employer] Work Phone: Start: 11-12-2020 Magnesium [Mass/volume] in Serum or Plasma [employer] Work Phone: Start: 11-11-2020 Magnesium [Mass/volume] in Serum or Plasma Cheng Mortensen Work Phone: Start: 11-11-2020 Glucose [Mass/volume] in Blood Flako Pinedo Work Phone: Start: 11-11-2020 Glucose [Mass/volume] in Blood Flako Pinedo Work Phone: Start: 11-11-2020 Bacteria identified in Bone by Aerobe culture Leanne Cherry Work Phone: Start: 11-11-2020 Bacteria identified in Unspecified specimen by Anaerobe culture Leanne Cherry Work Phone: Start: 11-11-2020 Procedure on tissue specimen Leanne Cherry Work Phone: Start: 11-11-2020 End: 11-11-2020 APPLICATION WOUND VAC Leannerachana Cherry Work Phone: Start: 11-11-2020 End: 11-11-2020 DEBRIDEMENT AND DRESSING CHANGE Leanne Cherry Work Phone: Start: 11-11-2020 Glucose [Mass/volume] in Blood Flako Pinedo Work Phone: Start: 11-11-2020 Glucose [Mass/volume] in Blood Flako Pinedo Work Phone: Start: 11-11-2020 Basic metabolic 2000 panel - Serum or Plasma [employer] Work Phone: Start: 11-11-2020 Complete blood count (hemogram) panel - Blood by Automated count [employer] Work Phone: Start: 11-11-2020 Magnesium [Mass/volume] in Serum or Plasma [employer] Work Phone: Start: 2020 Glucose [Mass/volume] in Blood Flako Pinedo Work Phone: Start: 2020 Glucose [Mass/volume] in Blood Flako Pined[employer] Work Phone: Start: 2020 Glucose [Mass/volume] in Blood Flako Pined[employer] Work Phone: Start: 2020 Glucose [Mass/volume] in Blood Flako Pinedo Work Phone: Start: 2020 Basic metabolic 2000 panel - Serum or Plasma [employer] Work Phone: Start: 2020 Complete blood count (hemogram) panel - Blood by Automated count [employer] Work Phone: Start: 2020 Magnesium [Mass/volume] in Serum or Plasma [employer] Work Phone: Start: 2020 End: 2020 Glucose [Mass/volume] in Blood Flako Pinedo Work Phone: Start: 11-09-2020 Glucose [Mass/volume] in Blood Flako Pinedo Work Phone: Start: 11-09-2020 End: 11-09-2020 Glucose [Mass/volume] in Blood Flako Pinedo Work Phone: Start: 11-09-2020 Glucose [Mass/volume] in Blood Flako Pinedo Work Phone: Start: 11-09-2020 Glucose [Mass/volume] in Blood Flako Pinedo Work Phone: Start: 11-09-2020 Glucose [Mass/volume] in Blood Flako Pinedo Work Phone: Start: 11-09-2020 Basic metabolic 2000 panel - Serum or Plasma [employer] Work Phone: Start: 11-09-2020 Complete blood count (hemogram) panel - Blood by Automated count [employer] Work Phone: Start: 11-09-2020 Magnesium [Mass/volume] in Serum or Plasma [employer] Work Phone: Start: 11-09-2020 Glucose [Mass/volume] in Blood [employer] Wajeeh Khris Work Phone: Start: 11-08-2020 Glucose [Mass/volume] in Blood Flako Pinedo Work Phone: Start: 11-08-2020 Glucose [Mass/volume] in Blood Flako Pinedo Work Phone: Start: 11-08-2020 Glucose [Mass/volume] in Blood Flako Pinedo Work Phone: Start: 11-08-2020 Glucose [Mass/volume] in Blood Flako Pinedo Work Phone: Start: 11-08-2020 Basic metabolic 2000 panel - Serum or Plasma [employer] Work Phone: Start: 11-07-2020 Glucose [Mass/volume] in Blood Flako Pinedo Work Phone: Start: 11-07-2020 Glucose [Mass/volume] in Blood Flako Pinedo Work Phone: Start: 11-07-2020 Aerobic microbial culture Mady Domk [employer] Work Phone: Start: 11-07-2020 Glucose [Mass/volume] in Blood Flako Pinedo Work Phone: Start: 11-07-2020 Complete blood count with white cell differential, automated [employer] Work Phone: Start: 11-07-2020 Complete blood count with white cell differential, manual [employer] Work Phone: Start: 11-07-2020 Bacteria identified in Unspecified specimen by Aerobe culture Flako Pinedo Work Phone: Start: 11-07-2020 Glucose [Mass/volume] in Blood Flako Pinedo Work Phone: Start: 11-07-2020 Glucose [Mass/volume] in Blood Flako Pinedo Work Phone: Start: 11-06-2020 Glucose [Mass/volume] in Blood Flako Pinedo Work Phone: Start: 11-06-2020 Glucose [Mass/volume] in Blood Flako Pined[employer] Work Phone: Start: 11-06-2020 End: 11-06-2020 Mri lower extrem oth/thn jt w/o & w/contr matr Flako Pinedo Work Phone: Start: 11-06-2020 Glucose [Mass/volume] in Blood Flako P[employer] Work Phone: Start: 11-06-2020 Protein/Creatinine [Ratio] in Urine Serge P[employer] Work Phone: Start: 11-06-2020 Urinalysis Flako P[employer] Work Phone: Start: 11-06-2020 Glucose [Mass/volume] in Blood [employer] P[employer] Work Phone: Start: 11-06-2020 Aerobic microbial culture Braeden Conte Work Phone: Start: 11-06-2020 End: 11-06-2020 X-ray of left foot Braeden Conte Work Phone: Start: 11-06-2020 Radiographic imaging procedure External Transcribed Start: 11-06-2020 Computerized tomography, limited studies External Transcribed Start: 11-06-2020 Glucose [Mass/volume] in Blood Flako Pinedo Work Phone: Start: 11-06-2020 Complete blood count with white cell differential, automated Flako Pined[employer] Work Phone: Start: 11-06-2020 Complete blood count with white cell differential, manual Flako Pinedo Work Phone: Start: 11-06-2020 Lactate [Moles/volume] in Serum or Plasma Flako P[employer] Work Phone: Start: 11-06-2020 Magnesium [Mass/volume] in Serum or Plasma [employer] Work Phone: Start: 11-06-2020 Renal function 2000 panel - Serum or Plasma [employer] Work Phone: Start: 11-06-2020 Thyrotropin [Units/volume] in Serum or Plasma by Detection limit <= 0.005 mIU/L Flako Pined[employer] Work Phone: Start: 11-06-2020 Assay of lactate Flako Pinedo Work Phone: Start: 11-05-2020 C>3< complement assay Flako Pinedo Work Phone: Start: 11-05-2020 C>4< complement assay Flako Pinedo Work Phone: Start: 11-05-2020 Troponin measurement Flako Pinedo Work Phone: Start: 11-05-2020 Lactate [Moles/volume] in Serum or Plasma Flako Pinedo Work Phone: Start: 11-05-2020 End: 11-05-2020 Bacteria identified in Blood by Culture Flako Pinedo Work Phone: Start: 11-05-2020 Radiologic exam chest single view Merly Pinedo Work Phone: Start: 11-05-2020 Beta hydroxybutyrate [Moles/volume] in Serum or Plasma Flako Pinedo Work Phone: Start: 11-05-2020 C reactive protein [Mass/volume] in Serum or Plasma Flako Pined[employer] Work Phone: Start: 11-05-2020 Complete blood count with white cell differential, automated Flako Pined[employer] Work Phone: Start: 11-05-2020 Complete blood count with white cell differential, manual Flako Pinedo Work Phone: Start: 11-05-2020 Comprehensive metabolic 2000 panel - Serum or Plasma Fl[employer] P[employer] Work Phone: Start: 11-05-2020 Creatine kinase [Enzymatic activity/volume] in Serum or Plasma Flako Pinedo Work Phone: Start: 11-05-2020 Erythrocyte sedimentation rate by Westergren method Flako Pinedo Work Phone: Start: 11-05-2020 Hemoglobin A1c/Hemoglobin.total in Blood Flako Pinedo Work Phone: Start: 11-05-2020 Magnesium [Mass/volume] in Serum or Plasma Flako Pinedo Work Phone: Start: 11-05-2020 Phosphate [Mass/volume] in Serum or Plasma Flako Pinedo Work Phone: Start: 11-05-2020 Procalcitonin [Mass/volume] in Serum or Plasma Flako Pinedo Work Phone: Start: 11-05-2020 Troponin measurement Flako Pinedo Work Phone: Start: 12-06-2019 Ophthalmic examination and evaluation [facility] Plan of Treatment Date Care Activity Detail Author Start: 01-04-2033 DTaP,Tdap and Td Vaccines (2 - Td or Tdap) DTaP,Tdap and Td Vaccines (2 - Td or Tdap) [facility] Start: 01-04-2033 Urine microalbumin profile DTaP,Tdap,Td Vaccine (2 - Td or Tdap) [facility] Start: 05-01-2029 Lipid panel Lipid Screening [facility] Start: 05-01-2027 Diabetes Screening Diabetes Screening [facility] Start: 05-10-2026 Adult BMI Screening Adult BMI Screening [facility] Start: 05-10-2026 Depression Screening Depression Screening [facility] Start: 05-10-2026 Tobacco Screening Tobacco Screening [facility] Start: 04-26-2026 Adult BMI Screening Adult BMI Screening [facility] Start: 04-26-2026 Depression Screening Depression Screening [facility] Start: 04-26-2026 Tobacco Screening Tobacco Screening [facility] Start: 04-24-2026 Tobacco Screening Tobacco Screening [facility] Start: 03-28-2026 Tobacco Screening Tobacco Screening [facility] Start: 03-04-2026 Adult BMI Screening Adult BMI Screening [facility] Start: 11-09-2025 Glaucoma screening Diabetes: Retinopathy Screening [facility] Start: 08-10-2025 End: 08-10-2025 Patient encounter procedure 08/10/2025 10:00 AM EDT Office Visit [facility] [address] [place] [address] Art Freeman, DO [address] [facility], [place], [place] [id number] [facility] Start: 07-23-2025 Influenza vaccination [facility] Start: 07-11-2025 Hemoglobin A1c measurement HbA1C [facility] Start: 05-22-2025 End: 05-22-2025 Admission to same day surgery center 05/22/2025 2:00 PM EDT [facility] General Surgery [address] [address] Jerome Del [place], [place] [address] 4wk post op General Surgery Comment on above: 4wk post op Start: 05-10-2025 End: 05-10-2025 Clinical Support 05/10/2025 9:30 AM EDT Clinical Support [facility] [address] [place] [address] Art Freeman, DO 605 [facility], [facility], [facility] [address] [place], [place] [id number] [facility] Start: 05-09-2025 End: 05-09-2025 Patient encounter procedure 05/09/2025 10:40 AM EDT Office Visit [facility] [address] [place] [id number] [place] Sherri Gurvinder, TRUCK [employer] PERSON [address] [place] [address] [facility] Start: 05-01-2025 Hepatitis B screening Urine Albumin:Creatinine Ratio [facility] Start: 05-01-2025 Urine screening for protein Urine Microalbumin [facility] Start: 04-26-2025 End: 04-26-2025 Patient encounter procedure 04/26/2025 2:00 PM EDT Office Visit [facility] [address] [place] [address] [place] [address] Art Freeman, DO 605 [facility], [facility] [address], [address] [place], [place] [id number] [facility] Start: 04-26-2025 End: 04-26-2026 XR Lumbar spine Views W right bending and W left bending X-ray spine lumbar complete including flexion and extension 6+ views Imaging Routine Chronic midline low back pain without sciatica Expected: 04/26/2025, Expires: 04/26/2026 [facility] Work Phone: Comment on above: Expected: 04/26/2025, Expires: Start: 04-25-2025 End: 04-25-2025 Patient encounter procedure 04/25/2025 7:30 AM EDT Appointment [facility] [place] [address] Jerome Del [place]o, [place] [address] Diabetic gastroparesis (HCC) [facility] Comment on above: Diabetic gastroparesis (HCC) Start: 04-24-2025 End: 04-24-2025 Patient encounter procedure 04/24/2025 10:30 AM EDT Office Visit [facility] [address] [place] [address] Sherri Garcia, [employer] PERSON [address] [place] [address] [facility] Start: 04-11-2025 End: 04-11-2025 Patient encounter procedure 04/11/2025 10:40 AM EDT Office Visit [facility] [address] [place] [address] Sherri Garcia, [employer]UCK [employer] PERSON [address] [place] [address] [facility] Start: 04-10-2025 End: 04-10-2025 Patient encounter procedure Gastroenterology Comment on above: New gp consult/empties Start: 07-23-2024 Covid-19 Vaccine ( season) Covid-19 Vaccine ( season) [facility] Start: 07-23-2024 Influenza vaccination Influenza Vaccine (#1) [facility] Start: 05-21-2024 Influenza vaccination Influenza Vaccine (#1) [facility] Comment on above: Postponed from 07/23/2023 (Patient Refus ed) Start: 02-03-2024 [facility] Start: 01-21-2024 Screening for malignant neoplasm of colon Colorectal Cancer Screening [facility] Comment on above: Postponed from 1966 (Other Medical Reasons) Start: 01-06-2024 End: 01-06-2024 Patient encounter procedure 01/06/2024 4:30 PM EST Office Visit [facility] [address] [place] [address] Cheng Staples NP [address] [place] [address] Arrived [facility] Comment on above: Arrived Start: 10-20-2023 Hemoglobin A1c measurement Diabetes: Hemoglobin A1C [facility] Start: 04-17-2022 Diabetic foot examination Diabetic Foot Exam [facility] Start: 2021 Prostate specific antigen measurement Prostate Cancer Screening Discussion [facility] Start: 05-06-2021 HbA1c (Bld) [Mass fraction] A1C [facility] Start: 03-06-2021 End: 03-06-2021 Office Visit 03/06/2021 Office Visit Wound Care Marcella Bell MD [address] [place] [address] [phone] [facility] Start: 02-14-2021 End: 02-14-2021 Office Visit 02/14/2021 Office Visit Wound Care Leanne Cherry DPM [address] [place] [address] [phone] [facility] Start: 02-06-2021 End: 02-06-2021 Office Visit 02/06/2021 Office Visit Wound Care Marcella Bell MD [address] [place] [address] [phone] [facility] Start: 01-24-2021 End: 01-24-2021 Office Visit 01/24/2021 Office Visit Wound Care Leanne Cherry DPM [address] [place] [address] [phone] [facility] Start: 01-09-2021 End: 01-09-2021 Office Visit [facility] Start: 12-27-2020 End: 12-27-2020 Office Visit 12/27/2020 Office Visit Wound Care Leanne Cherry DPM [address] [place] [address] [phone] [facility] Start: 12-19-2020 End: 12-19-2020 Office Visit 12/19/2020 Office Visit Wound Care Marcella Bell MD [address] [place] [address] [phone] [facility] Start: 12-06-2020 Ophthalmic examination and evaluation Ophthalmology Exam [facility] Start: 07-23-2020 Influenza vaccination given Sequential Influenza Vaccine (#1) [facility] Start: 2016 Administration of herpes zoster vaccine Zoster Vaccines (1 of 2) [facility] Start: 2016 Administration of varicella zoster vaccine Zoster (Shingles) Vaccine (1 of 2) [facility] Start: 2016 Pneumococcal Vaccine: 50+ (1 of 1 - PCV) Pneumococcal Vaccine: 50+ (1 of 1 - PCV) [facility] Start: 2016 Screening for malignant neoplasm of colon [facility] Start: 2016 Shingrix Vaccine (1 of 2) Shingrix Vaccine (1 of 2) [facility] Start: 2011 Prostate specific antigen measurement Prostate Cancer Screening Discussion [facility] Start: 2011 Screening for malignant neoplasm of colon [facility] Start: 1985 Hepatitis B Vaccine (1 of 3 - 19+ 3-dose series) Hepatitis B Vaccine (1 of 3 - 19+ 3-dose series) [facility] Start: 1985 Pneumococcal Vaccine: 50+ (1 of 2 - PCV) Pneumococcal Vaccine: 50+ (1 of 2 - PCV) [facility] Start: 1985 Urine screening for protein Diabetes: Urine Protein Screening [facility] Start: 1984 Adult BMI Follow Up Plan Adult BMI Follow Up Plan [facility] Start: 1984 Annual PCP Team Chronic Disease Visit Annual PCP Team Chronic Disease Visit [facility] Start: 1984 Anxiety Screening Anxiety Screening [facility] Start: 1984 Depression Screening Depression Screening [facility] Start: 1984 Hepatitis B surface antibody level LDL Cholesterol [facility] Start: 1984 Hepatitis C antibody, confirmatory test Hepatitis C Screening [facility] Start: 1984 Hepatitis C screening Hepatitis C Screening [facility] Start: 1984 HIV screening HIV Screening [facility] Start: 1982 COVID-19 Vaccine (1 of 2) COVID-19 Vaccine (1 of 2) [facility] Start: 1981 HIV screening HIV Screening [facility] Start: 1978 Adolescent depression screening assessment [facility] Start: 1976 Albumin DL <= 20 mg/L (U) [Mass/Vol] Urine Microalbumin [facility] Start: 1976 Diabetic foot examination [facility] Start: 1976 Glaucoma screening Dilated Retinal Exam [facility] Start: 1976 Ophthalmic examination and evaluation Ophthalmology Exam [facility] Start: 1969 History and physical examination, annual for health maintenance Wellness Visit [facility] Start: 1966 Glaucoma screening Diabetic Ophthalmology Exam [facility] Start: 1966 Medicare Annual Wellness (AWV) Medicare Annual Wellness (AWV) [facility] Start: 1966 Prostate specific antigen measurement PSA Level [facility] Start: 1966 Screening for malignant neoplasm of colon [facility] Start: 1966 Tetanus vaccination Tetanus: Every 10yrs [facility] End: 11-05-2020 12 lead ECG ECG 12 Lead ECG Routine Once for 1 Occurrences starting 11/05/2020 until 11/05/2020 [facility] Comment on above: Once for 1 Occurrences starting 11/05/20 until 11/05/2020 Aerobic microbial culture Wound Aerobic Culture Microbiology Routine Subacute osteomyelitis of left foot (HCC) Charcot's joint of ankle, unspecified laterality 12/27/2020 12:24 PM EST [facility] Bacteria identified Aer cx Nom (Bone) [facility] Bacteria identified Anaer cx Nom (Unsp spec) [facility] End: 04-26-2026 CBC W Auto Differential panel - Blood CBC auto differential Lab Routine Type 2 diabetes mellitus with foot ulcer, with long-term current use of insulin ([facility]) 1 Occurrences starting 04/26/2025 until 04/26/2026 [facility] Comment on above: 1 Occurrences starting 04/26/2025 until 04/26/2026 End: 04-26-2026 Comprehensive metabolic 2000 panel - Serum or Plasma Comprehensive metabolic panel Lab Routine Type 2 diabetes mellitus with foot ulcer, with long-term current use of insulin ([facility]) Fatty liver disease, nonalcoholic 1 Occurrences starting 04/26/2025 until 04/26/2026 [facility] Comment on above: 1 Occurrences starting 04/26/2025 until 04/26/2026 End: 05-10-2026 Cyanocobalamin vitamin b-12 Vitamin B12 Lab Routine Fatigue, unspecified type 1 Occurrences starting 05/10/2025 until 05/10/2026 [facility] Comment on above: 1 Occurrences starting 05/10/2025 until 05/10/2026 End: 12-19-2021 DRESSING Dressing Procedures Routine Subacute osteomyelitis of left foot (HCC) 1 Occurrences starting 12/19/2020 until 12/19/2021 [facility] Comment on above: 1 Occurrences starting 12/19/2020 until 12/19/2021 End: 01-09-2022 DRESSING Dressing Procedures Routine Subacute osteomyelitis of left foot (HCC) 1 Occurrences starting 01/09/2021 until 01/09/2022 [facility] Comment on above: 1 Occurrences starting 01/09/2021 until 01/09/2022 End: 02-06-2022 DRESSING Dressing Procedures Routine Foot abscess, left 1 Occurrences starting 02/06/2021 until 02/06/2022 [facility] Comment on above: 1 Occurrences starting 02/06/2021 until 02/06/2022 End: 04-26-2026 Hemoglobin A1c/Hemoglobin.total in Blood Hemoglobin A1c Lab Routine Type 2 diabetes mellitus with foot ulcer, with long-term current use of insulin ([facility]) 1 Occurrences starting 04/26/2025 until 04/26/2026 [facility] Comment on above: 1 Occurrences starting 04/26/2025 until 04/26/2026 End: 05-10-2026 Magnesium [Mass/volume] in Serum or Plasma Magnesium Lab Routine Fatigue, unspecified type 1 Occurrences starting 05/10/2025 until 05/10/2026 [facility] Comment on above: 1 Occurrences starting 05/10/2025 until 05/10/2026 Patient Education Gastritis (DC) [facility] Work Phone: End: 05-10-2026 Prostatic specific antigen screen Prostatic specific antigen screen Lab Routine Encounter for screening for malignant neoplasm of prostate 1 Occurrences starting 05/10/2025 until 05/10/2026 [place] Work Phone: Comment on above: 1 Occurrences starting 05/10/2025 until 05/10/2026 Radionuclide gastric emptying study [facility] End: 05-10-2026 Testosterone, Total and Free, S Testosterone, Total and Free, S Lab Routine Fatigue, unspecified type 1 Occurrences starting 05/10/2025 until 05/10/2026 [facility] Comment on above: 1 Occurrences starting 05/10/2025 until 05/10/2026 End: 05-10-2026 Vitamin D 25 hydroxy Vitamin D 25 hydroxy Lab Routine Fatigue, unspecified type 1 Occurrences starting 05/10/2025 until 05/10/2026 [facility] Comment on above: 1 Occurrences starting 05/10/2025 until 05/10/2026 Wound Anaerobic Culture Wound An aerobic Culture Microbiology Routine Subacute osteomyelitis of left foot (HCC) Charcot's joint of ankle, unspecified laterality 12/27/2020 12:24 PM [facility] End: 01-24-2022 X-ray of left foot XR Foot Left 3+ Views (Standard) Imaging Routine Subacute osteomyelitis of left foot (HCC) 1 Occurrences starting 01/24/2021 until 01/24/2022 [facility] Comment on above: 1 Occurrences starting 01/24/2021 until 01/24/2022 X-ray of left foot XR Foot Left 3+ Views (Standard) Imaging Routine Subacute osteomyelitis of left foot (HCC) 01/24/2021 2:27 PM [facility] Immunizations Immunization Date Immunization Notes Care Provider [facility] 01-04-2023 tetanus toxoid, redu sunny diphtheria toxoid, and acellular pertussis vaccine, adsorbed Cheng Staples NP Work Phone: [facility] Healthcare Payers Date Payer Category Payer Medicare (Managed Care) [employer] [id number] 2023 Medicare HMO [employer] ember [id number] 2023 Private Health Insurance [facility] [id number] [id number] 2023 Self-pay [id number] 2023 Unknown [id number] 2023 Unknown [employer] [id number] 2023-Present [address] [place] [address] [id number] 2021 Medicare 2019 Medicare [id number] 2019 Medicare [id number] 1966 Unknown [id number] 2.16.840.1.661790.3.579.2. 647 1966 Unknown [id number] 2.16.840.1.812503.3.579.2. 903 1966 Unknown [id number] 2.16.840.1.372695.3.579.2. 903 1966 Unknown [id number] 2.16.840.1.224497.3.579.2. 903 1966 Unknown [id number] 2.16.840.1.688987.3.579.2. 903 1966 Unknown [id number] 2.16.840.1.063006.3.579.2. 903 1966 Unknown [id number] 2.16.840.1.748296.3.579.2. 903 1966 Unknown [id number] 2.16.840.1.129953.3.579.2. 903 1966 Unknown [id number] 2.16.840.1.433561.3.579.2. 903 1966 Unknown [id number] 2.16.840.1.839511.3.579.2. 903 1966 Unknown [id number] 2.16.840.1.812406.3.579.2. 903 1966 Unknown [id number] 2.16.840.1.609147.3.579.2. 903 1966 Unknown [id number] 2.16.840.1.718538.3.579.2. 903 1966 Unknown [id number] 2.16.840.1.084443.3.579.2. 196 1966 Unknown [id number] 2.16.840.1.698066.3.579.2. 175 1966 Unknown [id number] 2.16.840.1.998556.3.579.2. 593 1966 Unknown [id number] 2.16.840.1.949692.3.579.2. 1259 1966 Unknown [id number] 2.16.840.1.805479.3.579.2. 1259 1966 Unknown [id number] 2.16.840.1.014070.3.579.2. 1259 1966 Unknown [id number] 2.16840.1.171182.3.579.2. 1286 1966 Unknown [id number] 2.16.840.1.359457.3.579.2. 1286 1966 Unknown [id number] 2.16840.1.157556.3.579.2. 128 1966 Unknown [id number] 2.16840.1.480526.3.579.2. 1286 1966 Unknown [id number] 2.840.1.989339.3.579.2. 128 1966 Unknown [id number] 2.840.1.523700.3.579.2. 1286 1966 Unknown [id number] 2.840.1.448690.3.579.2. 128 1966 Unknown [id number] 2.16840.1.578059.3.579.2. 1286 1959 Medicare [id number] 2.840.1.964864.19 Unknown [id number] Unknown [id number] 2.16840.1.798319.3.579.2. 531 Unknown [id number] 2.840.1.168653.3.579.2. 531 Unknown [id number] 2.840.1.390826.3.579.2. 531 Unknown [id number] 2.840.1.462203.3.579.2. 531 Social History Date Type Detail Facility Start: 12-22-2019 End: 11-19-2020 Tobacco smoking status MOIS Never smoker [facility] Start: 12-22-2019 End: 11-19-2020 Tobacco use and exposure Never used [facility] Start: 11-19-2020 End: 02-06-2021 Alcohol intake Current drinker of alcohol (finding) [facility] Start: 11-06-2020 Alcohol Comment rarely [facility] Start: 1965 Sex Assigned At Not on file [facility] Exposure to SARS-CoV -2 (event) Not sure [facility] Start: 02-07-2021 End: 11-02-2023 Sex Assigned At [employer] Other Start: 01-06-2024 End: 05-10-2025 Alcohol intake Ex-drinker (finding) [facility] Start: 02-07-2021 End: 11-02-2023 History of Social function [facility] Start: 11-02-2023 Alcohol Comment pop-4 cups daily [facility] Start: 1965 Sex Assigned At Male F [facility] Start: 02-03-2024 Tobacco smoking stat [facility] Ex-smoker (finding) [facility] Tobacco smoking stat [facility] Tobacco smoking consumption unknown [facility] National Score (1-10 0), lower number is lower risk 87 [facility] Do you belong to any clubs or organizations such as christian groups, unions, fraternal or athletic groups, or school groups? No [facility] Are you now , , , , never or living with a partner? [facility] How often to you hav e a drink containing alcohol? Monthly or less [facility] How often do you hav e 6 or more drinks on 1 occasion? Never [facility] How hard is it for y ou to pay for the very basics like food, housing, medical care, and heating Not very hard [facility] Do you feel stress - tense, restless, nervous, or anxious, or unable to sleep at night because your mind is troubled all the time - these days [OSQ] To some extent [facility] Start: 03-21-2021 Alcohol Comment quit 2005 [facility] Start: 06-27-2015 Sex Male (finding) [facility] NEGATED: Highlighted rowStart: NINF History of tobacco use Passive smoker [facility] Medical Equipment Procedure Code Equipment Code Equipment Origin al Text Equipment Identifier Dates [id number] Start: 08-03-2021 End: 04-26-2025 Cmnt Bn Bio 40gm Rpl [id number] - [id number] Start: 02-07-2021 Lens Iol Ultrase rt 18.5d - [id number] - [id number] Start: 12-28-2019 1 Pen Needle by miscellaneous route in the morning and 1 Pen Needle at noon and 1 Pen Needle in the evening and 1 Pen Needle before bedtime. [id number] Start: 04-26-2025 End: 05-10-2025 1 strip by other route 4 (four) times a day before meals and nightly. [id number] Start: 04-26-2025 End: 05-10-2025 1 strip by other route 4 (four) times a day before meals and nightly. [id number] Start: 05-10-2025 End: 05-16-2025 1 strip by other route 4 (four) times a day before meals and nightly. [id number] Start: 05-16-2025 Goals Date Patient Goal Desired Activity /State Personal health goal Comment on above: Formatting of this n ote might be different from the original. Evaluation of progress towards goal: [facility] Clinical Notes 08-25-2022 to 05-13-2025 Telephone Encounter - Art Freeman DO - 05/13/2025 3:07 PM EDTTelephone Encounter - Art Freeman DO - 05/13/2025 3:07 PM EDAurelio Freeman DO - 05/10/2025 9:30 AM EDTPatient Instructions Note Date & Type Note Facility 05-13-2025 Miscellaneous Notes CHANGE TO ACCUCHECK documented in this encounter [facility] 05-13-2025 Telephone encounter Note CHANGE TO ACCUCHECK [facility] 05-10-2025 Evaluation + Plan note Associated Problem(s): Benign essential HTN Hypertension is stable. Continue with hydrochlorothiazide 12.5 mg daily and lisinopril 10 mg daily. [facility] 05-10-2025 Miscellaneous Notes Associated Problem(s): Benign essential HTN Hypertension is stable. Continue with hydrochlorothiazide 12.5 mg daily and lisinopril 10 mg daily. Associated Problem(s): Diabetes mellitus ([facility]) Hemoglobin A1c from May 02, 2025 was 11.5%. Patient was unable to afford insulin prescriptions at last visit. Prescribed Lantus Solostar insulin pens 30 units twice daily and NovoLog flex pen sliding scale 3 times daily with meals. Associated Problem(s): Chronic midline low back pain without sciatica Reviewed 6 view lumbar x-rays from May 02, 2025. Prescribed celecoxib 100 mg 1 tablet daily. documented in this encounter [facility] 05-10-2025 Evaluation + Plan note Associated Problem(s): Diabetes mellitus ([facility]) Hemoglobin A1c from May 02, 2025 was 11.5%. Patient was unable to afford insulin prescriptions at last visit. Prescribed Lantus Solostar insulin pens 30 units twice daily and NovoLog flex pen sliding scale 3 times daily with meals. [facility] 05-10-2025 Evaluation + Plan note Associated Problem(s): Chronic midline low back pain without sciatica Reviewed 6 view lumbar x-rays from May 02, 2025. Prescribed celecoxib 100 mg 1 tablet daily. [facility] 05-10-2025 History of Present illness Narrative Images from the original note were not included. [facility] [address] [place] [address] [place] [address] Patient: More Kingsley Jr. Date of : 1965 Encounter Date: 05/10/2025 Subjective: Chief Complaint Chief Complaint Patient presents with Diabetes Follow-up Back pain History of Present Illness More Kingsley Jr. is a 59 y.o. male, established [...] bridging osteophytes most pronounced at L2-L4 and T11/T12.). The pain is present in the lumbar spine. The quality of the pain is described as aching. Radiates to: Gluteal area bilaterally. Exacerbated by: Patient states that he has difficulty performing tasks like mowing the yard as it takes him much longer due to stopping to rest. Pertinent negatives include no bladder incontinence, bowel incontinence, numbness, perianal numbness or tingling. Review of Systems Review of Systems Gastrointestinal: Negative for bowel incontinence. Genitourinary: Negative for bladder incontinence. Musculoskeletal: Positive for back pain. Neurological: Negative for tingling and numbness. Vital Signs BP 110/72 (BP Site: Left Arm, BP Postition: Sitting) Pulse 90 Temp 36.6 C (97.8 F) (Oral) Wt 115.4 kg (254 lb 6.4 oz) SpO2 95% BMI 38.11 kg/m Physical Exam Physical Exam Vitals reviewed. Constitutional: [...] 02/2021 left foot Chronic osteomyelitis of foot ([facility]) 02/2021 left/with draining sinus Dental disease poor repair Diabetes mellitus type 2, controlled ([facility]) 1999 Hyperlipidemia Hypertension PICC (peripherally inserted central catheter) flush 02/2021 Visual impairment glasses Past Surgical History: Procedure Laterality Date AMPUTATION SYMES LOWER EXTREMITY Left 04/18/2021 Performed by Chan Brooke DPM at [facility] AMPUTATION TOEMID FOOT OSTEOTOMY ACHILLES TENOTOMY Left 02/07/2021 Performed by Chan Brooke DPM at [facility] ASPIRATION BONE MARROW BIOPSY BONE MARROW (BONE BIOPSY) Left 03/24/2021 Performed by Chan Brooke DPM at [facility] CLOSURE WOUND LOWER EXTREMITY (DELAYED PRIMARY CLOSURE) Left 03/24/2021 Performed by Chan Brooke DPM at [facility] DEBRIDEMENT FOOT/ANKLE Left 02/07/2021 Performed by Chan Brooke DPM at [facility] EXOSTECTOMY FOOT Right 09/01/2021 Performed by Chan Brooke DPM at [facility] PHACO KELMAN I IMPLANT INTRAOCULAR LENS Right 12/28/2019 Performed by Debra Trejo MD at [facility] REMOVAL HARDWARE FOOT/TOE, AND REMOVAL ANTIBIOTIC SPACER Left 03/24/2021 Performed by Chan Brooke DPM at [facility] TONSILLECTOMY as child Family History Problem [...] and 10 to the basement. Worked at [employer]. Now disabled Social Drivers of Health Financial Resource Strain: Low Risk (01/06/2024) Received from [facility] Overall Financial Resource Strain (CARDIA) Difficulty of Paying Living Expenses: Not hard at all Food Insecurity: No Food Insecurity (05/10/2025) Hunger Screening Food Insecurity - Worry: Never True Food Insecurity - Inability: Never True Transportation Needs: Unmet Transportation Needs (01/06/2024) Received from [facility] PRAPARE - Transportation Lack of Transportation (Medical): Yes Lack of Transportation (Non-Medical): Yes Physical Activity: Inactive (01/06/2024) Received from [facility] Exercise Vital Sign Days of Exercise per Week: 0 days Minutes of Exercise per Session: 0 min Stress: Stress Concern Present (01/06/2024) Received from [facility] [place] [facility] [employer] - Occupational Stress Questionnaire Feeling of Stress : Very much Social Connections: Socially Isolated (01/06/2024) Received from [facility] Social Connection and Isolation Panel [NHANES] Frequency of Communication with Friends and Family: Never Frequency of Social Gatherings with Friends and Family: Never Attends [employer] Services: Never Active Member of Clubs or Organizations: Yes Attends Club or Organization Meetings: Never Marital Status: Interpersonal Safety: Unknown (01/13/2024) Received from [facility] [place] Safety & Environment Fear of Current or Ex-Partner: Not on file Emotionally Abused: Not on file Physically Abused: Not on file Sexually Abused: Not on file Physically or Sexually Abused: Not on file Housing Instability: Low Risk (01/06/2024) Received from [facility] Housing Stability Vital Sign Unable to [...] the morning. dorzolamide (TRUSOPT) 2 % ophthalmic solution Administer [...] ulcer, with long-term current use of insulin ([facility]) - lisinopriL (PRINIVIL,ZESTRIL) 10 mg tablet; Take [...] 100 mg 1 tablet daily. Diabetes mellitus ([facility]) Hemoglobin A1c from May 02, 2025 was [...] months diabetes mellitus/back pain follow up - Art Freeman DO 05/10/25 12:59 PM documented in this encounter [facility] 05-10-2025 Instructions Art Freeman DO - 05/10/2025 9:30 AM EDT Sliding [...] exercises as given documented in this encounter [facility] 04-27-2025 Evaluation + Plan note Associated Problem(s): Chronic midline low back pain without sciatica Ordered x-rays of lumbar spine 6 views including flexion and extension views. [facility] 04-27-2025 Miscellaneous Notes Associated Problem(s): Chronic midline low back pain without sciatica Ordered x-rays of lumbar spine 6 views including flexion and extension views. Associated Problem(s): Diabetes mellitus ([facility]) Last hemoglobin A1c from April 01, 2025 was 11%. Continue with insulin glargine 30 units nightly, insulin lispro sliding scale coverage before meals. Monitor blood sugars before meals. Associated Problem(s): Benign essential HTN Blood pressure today in normal range. Patient denies any symptoms. Continue with hydrochlorothiazide 12.5 mg daily, lisinopril 10 mg daily. Associated Problem(s): Fatty liver disease, nonalcoholic Ordered lab work including comprehensive metabolic panel to evaluate for level of transaminase elevation documented in this encounter [facility] 04-27-2025 Evaluation + Plan note Associated Problem(s): Diabetes mellitus ([facility]) Last hemoglobin A1c from April 01, 2025 was 11%. Continue with insulin glargine 30 units nightly, insulin lispro sliding scale coverage before meals. Monitor blood sugars before meals. [facility] 04-27-2025 Evaluation + Plan note Associated Problem(s): Benign essential HTN Blood pressure today in normal range. Patient denies any symptoms. Continue with hydrochlorothiazide 12.5 mg daily, lisinopril 10 mg daily. [facility] 04-27-2025 Evaluation + Plan note Associated Problem(s): Fatty liver disease, nonalcoholic Ordered lab work including comprehensive metabolic panel to evaluate for level of transaminase elevation [facility] 04-26-2025 History of Present illness Narrative Images from the original note were not included. [facility] [address] [place] [address] [place] [address] Patient: More Kingsley Jr. Date of : 1965 Encounter Date: 04/26/2025 Subjective: Chief Complaint Chief Complaint Patient presents with Establish Care History of Present Illness More Kingsley Jr. is a 59 y.o. male, NEW patient, that presents to the office to establish care History provided by patient Diabetes He presents for his follow-up diabetic visit. He has type 2 (Diagnosed about 30 years ago) diabetes mellitus. Disease course: He reports that last HbA1c was 9.6%. Current diabetic treatments: Current treatment: Novolin N 36 units twice daily. Home [...] discomfort in leg when he is not able to apply pressure without weakness develops), numbness, perianal [...] BP Postition: Sitting) Pulse 95 Temp 36.7 C (98.1 F) (Oral) Ht 174 cm (5' 8.5 ) Wt 115.2 kg (254 lb) SpO2 96% BMI 38.05 kg/m Physical Exam Physical Exam Cardiovascular: Rate and [...] 02/2021 left foot Chronic osteomyelitis of foot ([facility]) 02/2021 left/with draining sinus Dental disease poor repair Diabetes mellitus type 2, controlled ([facility]) 1999 Hyperlipidemia Hypertension PICC (peripherally inserted central catheter) flush 02/2021 Visual impairment glasses Past Surgical History: Procedure Laterality Date AMPUTATION SYMES LOWER EXTREMITY Left 04/18/2021 Performed by Chan Brooke DPM at [facility] AMPUTATION TOEMID FOOT OSTEOTOMY ACHILLES TENOTOMY Left 02/07/2021 Performed by Chan Brooke DPM at [facility] ASPIRATION BONE MARROW BIOPSY BONE MARROW (BONE BIOPSY) Left 03/24/2021 Performed by Chan Brooke DPM at [facility] CLOSURE WOUND LOWER EXTREMITY (DELAYED PRIMARY CLOSURE) Left 03/24/2021 Performed by Chan Brooke DPM at [facility] DEBRIDEMENT FOOT/ANKLE Left 02/07/2021 Performed by Chan Brooke DPM at [facility] EXOSTECTOMY FOOT Right 09/01/2021 Performed by Chan Brooke DPM at [facility] PHACO KELMAN I IMPLANT INTRAOCULAR LENS Right 12/28/2019 Performed by Debra Trejo MD at [facility] REMOVAL HARDWARE FOOT/TOE, AND REMOVAL ANTIBIOTIC SPACER Left 03/24/2021 Performed by Chan Brooke DPM at [facility] TONSILLECTOMY as child Family History Problem Relation [...] and 10 to the basement. Worked at [employer]. Now disabled Social Drivers of Health Financial Resource Strain: Low Risk (01/06/2024) Received from [facility] Overall Financial Resource Strain (CARDIA) Difficulty of Paying Living Expenses: Not hard at all Food Insecurity: No Food Insecurity (04/26/2025) Hunger Screening Food Insecurity - Worry: Never True Food Insecurity - Inability: Never True Transportation Needs: Unmet Transportation Needs (01/06/2024) Received from [facility] PRAPARE - Transportation Lack of Transportation (Medical): Yes Lack of Transportation (Non-Medical): Yes Physical Activity: Inactive (01/06/2024) Received from [facility] Exercise Vital Sign Days of Exercise per Week: 0 days Minutes of Exercise per Session: 0 min Stress: Stress Concern Present (01/06/2024) Received from [facility] [place] [employer] - Occupational Stress Questionnaire Feeling of Stress : Very much Social Connections: Socially Isolated (01/06/2024) Received from [facility] Social Connection and Isolation Panel [NHANES] Frequency of Communication with Friends and Family: Never Frequency of Social Gatherings with Friends and Family: Never Attends [employer] Services: Never Active Member of Clubs or Organizations: Yes Attends Club or Organization Meetings: Never Marital Status: Interpersonal Safety: Unknown (01/13/2024) Received from [facility] Safety & Environment Fear of Current or Ex-Partner: Not on file Emotionally Abused: Not on file Physically Abused: Not on file Sexually Abused: Not on file Physically or Sexually Abused: Not on file Housing Instability: Low Risk (01/06/2024) Received from [facility] Housing Stability Vital Sign Unable to [...] the morning. dorzolamide (TRUSOPT) 2 % ophthalmic solution Administer [...] ulcer, with long-term current use of insulin ([facility]) - TRUE METRIX GLUCOSE TEST STRIP strip; [...] SOLOSTAR U-100 INSULIN) 100 unit/mL insulin pen; 70-150 0 units 151-174 2 units 175-199 [...] evening and 1 Pen Needle before bedtime. Dispense: 100 each; Refill: 3 - Comprehensive metabolic panel; [...] daily, lisinopril 10 mg daily. Diabetes mellitus ([facility]) Last hemoglobin A1c from April 01, 2025 [...] to 2 weeks diabetes/back pain follow-up - Art Freeman DO 04/27/25 9:18 PM documented in this encounter [facility] 04-26-2025 Instructions Art Freeman DO - 04/26/2025 2:00 PM EDT Get blood work and x-ray of lumbar spine completed before next visit. Follow instructions for medications. Check blood sugars up to 4 times per day and use short acting insulin as directed. Take Lantus 30 units daily documented in this encounter [facility] 04-24-2025 History of Present illness Narrative Associated Order(s): Debridement Post-Procedure Diagnose(s): 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); Diabetic ulcer of right midfoot associated with type 2 diabetes mellitus, with muscle involvement without evidence of necrosis (CMS-HCC) Images from the original note were not included. Wound Care Progress Note Patient: More Kingsley . Date of : 1965 Chief Complaint: Right foot ulcer, follow up Subjective/HPI: More is a 59 y.o. male who present to [facility] for evaluation of 1 ulcer(s) on the right plantar midfoot. Patient established with wound clinic 03/28/2025. Current wound care includes: Vashe soak, cover with Xeroform, secure with roll gauze. Patient is wearing a right tennis shoe, Patient presents with a prosthetic of the left foot. 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 Eric Stephenson, [facility]. Patient was seen in the emergency room [...] notes. Patient Active Problem List Diagnosis Sepsis ([facility]) Diabetic ulcer of right midfoot associated with type 2 diabetes mellitus, with muscle involvement without evidence of necrosis ([facility]) Chronic osteomyelitis of left foot with draining sinus ([facility]) Wound, open, foot with complication, left, initial encounter Charcot's joint of foot, left Diabetes mellitus ([facility]) Hyperlipidemia Osteomyelitis of left foot ([facility]) Ulcer of right foot with fat layer exposed ([facility]) History of transmetatarsal amputation of right foot ([facility]) 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 ([facility]) Unstable ankle, right Past Medical History: Diagnosis Date Acid reflux Anemia Arthritis Cataract right lens implant Charcot's joint 02/2021 left foot Chronic osteomyelitis of foot ([facility]) 02/2021 left/with draining sinus Dental disease poor repair Diabetes mellitus type 2, controlled ([facility]) 1999 Hyperlipidemia Hypertension PICC (peripherally inserted central catheter) flush 02/2021 Visual impairment glasses Past Surgical History: Procedure Laterality Date AMPUTATION SYMES LOWER EXTREMITY Left 04/18/2021 Performed by Chan Brooke DPM at [facility] AMPUTATION TOEMID FOOT OSTEOTOMY ACHILLES TENOTOMY Left 02/07/2021 Performed by Chan Brooke DPM at [facility] ASPIRATION BONE MARROW BIOPSY BONE MARROW (BONE BIOPSY) Left 03/24/2021 Performed by Chan Brooke DPM at [facility] SURGERY CLOSURE WOUND LOWER EXTREMITY (DELAYED PRIMARY CLOSURE) Left 03/24/2021 Performed by Chan Brooke DPM at [facility] DEBRIDEMENT FOOT/ANKLE Left 02/07/2021 Performed by Chna Brooke DPM at [facility] EXOSTECTOMY FOOT Right 09/01/2021 Performed by Chan Brooke DPM at [facility] SURGERY PHACO KELMAN I IMPLANT INTRAOCULAR LENS Right 12/28/2019 Performed by Debra Trejo MD at [facility] REMOVAL HARDWARE FOOT/TOE, AND REMOVAL ANTIBIOTIC SPACER Left 03/24/2021 Performed by Chan Brooke DPM at [facility] SURGERY TONSILLECTOMY as child Social Drivers of Health Food Insecurity: No Food Insecurity (03/04/2025) Hunger Screening Food Insecurity - Worry: Never True Food Insecurity - Inability: Never True Housing Instability: Low Risk (01/06/2024) Received from [facility] Housing Stability Vital Sign Unable to Pay for Housing in the Last Year: No Number of Places Lived in the Last Year: 1 Unstable Housing in the Last Year: No Transportation Needs: Unmet Transportation Needs (01/06/2024) Received from [facility] PRAPARE - Transportation Lack of Transportation (Medical): Yes Lack of Transportation (Non-Medical): Yes Utility Difficulties: Not on file Interpersonal Safety: Unknown (01/13/2024) Received from [facility] Safety & Environment Fear of Current or Ex-Partner: Not on file Emotionally Abused: Not on file Physically Abused: Not on file Sexually Abused: Not on file Physically or Sexually Abused: Not on file Financial Resource Strain: Low Risk (01/06/2024) Received from [facility] Overall Financial Resource Strain (CARDIA) Difficulty of Paying Living Expenses: Not hard at all Childcare: Low Risk (02/07/2021) Childcare Childcare: No Employment: Low Risk (02/07/2021) Employment Employment: No Purpose - Life: Low Risk (02/07/2021) Purpose - Life Purpose and direction in life: Agree Depression: Not at risk (03/13/2024) Received from [facility] PHQ-2 Patient Health Questionnaire-2 Score: 0 Alcohol Use: Not At Risk (01/06/2024) Received from [facility] AUDIT-C Frequency of Alcohol Consumption: Monthly or less Average Number of Drinks: Patient does not drink Frequency of Binge Drinking: Never Tobacco Use: Low Risk (04/11/2025) Patient History Smoking Tobacco Use: Never Smokeless Tobacco Use: Never Passive Exposure: Not on file Social Connections: Socially Isolated (01/06/2024) Received from [facility] Social Connection and Isolation Panel [NHANES] Frequency of Communication with Friends and Family: Never Frequency of Social Gatherings with Friends and Family: Never Attends [employer] Services: Never Active Member of Clubs or Organizations: Yes Attends Club or Organization Meetings: Never Marital Status: Physical Activity: Inactive (01/06/2024) Received from [facility] Exercise Vital Sign Days of Exercise per Week: 0 days Minutes of Exercise per Session: 0 min Stress: Stress Concern Present (01/06/2024) Received from [facility] [place] [facility] [employer] - Occupational Stress Questionnaire [...] past medical history, past social history, past surgical history, problem list, and medication reconciliation was completed including current medication and post discharge medication. PAIN: Pain Scale 0/10: 0 [...] 116/81 Pulse: 97 Resp: 16 Temp: 36.5 C (97.7 F) Physical Exam Vitals and nursing note reviewed. [...] debridement Post debridement 04/24/25 1100 Site Assessment [place];Red 04/24/25 1100 Debi-wound Assessment Callous;Dry 04/24/25 1100 Wound Length (cm) 3.3 cm 04/24/25 1100 Wound Width (cm) 2.8 cm 04/24/25 1100 Wound Surface Area (cm^2) 7.26 cm^2 04/24/25 1100 Wound Depth (cm) 0.2 cm 04/24/25 1100 Wound Volume (cm^3) 0.968 cm^3 04/24/25 1100 Change in Wound Size % 29.99 04/24/25 1100 Drainage Description Sanguineous 04/24/25 1100 Drainage Amount Small 04/24/25 1100 Debridement Performed? [...] prevent further complications. Debridement Performed by: SCOTT Vaughn Authorized by: SCOTT Vaughn Associated wounds: Wound 03/28/25 1 Diabetic Ulcer Foot Right;Plantar Consent: Consent obtained: Verbal and written Consent given by: Patient Risks discussed: Yes Debridement Details: Performed by: DRYING ROOM ATTENDANT Type: Sharp Level: Subcutaneous Tissue, Devitalized tissue [...] cleaned, gently pat dry the wound and debi wound skin are and apply dressing as [...] short term goal is wound compliance. Our group home goal is wound closure. The patient was [...] infection, edema, necrotic tissue and its relationship to nonhealing wounds. Education was also provided on treatment [...] electronic or other health record - SCOTT VAUGHN 04/24/25 11:51 AM Sherri Garcia APRN, ROSALIA, CWS, NAVNEET [facility]:[phone] SCOTT Vaughn 03/28/25 1311 SCOTT Vaughn 03/28/25 1329 SCTOT Vaughn 04/11/25 1218 SCOTT Vaughn 04/24/25 1202 documented in this encounter [facility] 04-24-2025 Instructions Sulma Humphreys RN - 04/24/2025 10:30 AM [...] Rolled gauze. STEP 6: Secure dressings with Luana Wrap (Elastic Bandage) ACTIVITY: Avoid direct pressure to wound(s) at all times NUTRITION: High protein diet SKIN CARE: SWELLING CONTROL: Elevate legs whenever sitting to level of heart/hips or higher. ITEMS TO FOLLOW UP ON: Length Width Depth Wound drainage Type Description small Serosanginous yellow documented in this encounter [facility] 04-20-2025 Nurse Note 1102 Spoke to patient to give procedure day instructions. Patient states he was told it was denied . Attempted to get clarification, but was unable to. Phone number to scheduling office provided to patient so that he can tell them the same thing I was told. No instructions given. [facility] 04-20-2025 Nurse Note 1102 Spoke to patient to give procedure day instructions. Patient states he was told it was denied . Attempted to get clarification, but was unable to. Phone number to scheduling office provided to patient so that he can tell them the same thing I was told. No instructions given. documented in this encounter [facility] 04-18-2025 Telephone encounter Note G-POEM for date of service 04/25/2025. Appeal with all information including letter, study, JAMIN notes, GES result, EGG result, EGD result, CT result, faxed to [employer] Dept at fax [phone] with confirmation. Appeal also mailed out to [employer] Dept) to the address provided. Copy placed in shared clinical office filing cabinet. [facility] Work Phone: 04-18-2025 Miscellaneous Notes G-POEM for date of service 04/25/2025. Appeal with all information including letter, study, JAMIN notes, GES result, EGG result, EGD result, CT result, faxed to [employer] Dept at fax [phone] with confirmation. Appeal also mailed out to [employer] Dept) to the address provided. Copy placed in shared clinical office filing cabinet. documented in this encounter [facility] 04-11-2025 History of Present illness Narrative Associated Order(s): Debridement Post-Procedure Diagnose(s): Diabetic ulcer of right midfoot associated with type 2 diabetes mellitus, with muscle involvement without evidence of necrosis ([facility]) Images from the original note were not included. Wound Care Progress Note Patient: More Kingsley Jr. Date of : 1965 Chief Complaint: Right foot ulcer, follow up Subjective/HPI: More is a 59 y.o. male who present to [facility] for evaluation of 1 ulcer(s) on the right plantar midfoot. Patient established with wound clinic 03/28/2025. Current wound care includes: Vashe soak, cover with Xeroform, secure with roll gauze. Patient is wearing a right Darco off-loading shoe, Patient presents with a prosthetic of the left foot. Patient states he has been to Dr. Eric Stephenson, podiatry, in [facility]. Patient was seen in the emergency room 03/04/2025 for concerns of infection of the right foot. Patient was given antibiotics doxycycline. X-ray of the right foot impression no soft tissue gas or evidence of osteomyelitis. 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 Brooke Measurable wound changes: decrease in wound measurements Stable calf circumference Patient accompanied by: Self, ambulatory Nutritional screen shows patient does take in three servings of protein per day. Patient does deny fever, chills, sweats or other symptoms of infection. Completed on Augmentin as prescribed. Today's reported Blood sugar: Patient does not check blood sugars, states he does not have a glucometer Lab Results Component Value Date HGBA1C 11.3 (H) 05/01/2024 HGBA1C 9.0 (H) 07/20/2023 Contributing comorbid conditions: Poorly controlled diabetes, abnormal gait, history of right and left foot amputation. Labs/Imaging/Cardiovascular: Patient's chart was reviewed for all available supporting documentation, laboratory results and radiographic examination including external notes. Patient Active Problem List Diagnosis Sepsis ([facility]) Diabetic ulcer of right midfoot associated with type 2 diabetes mellitus, with muscle involvement without evidence of necrosis ([facility]) Chronic osteomyelitis of left foot with draining sinus ([facility]) Wound, open, foot with complication, left, initial encounter Charcot's joint of foot, left Diabetes mellitus ([facility]) Hyperlipidemia Osteomyelitis of left foot ([facility]) Ulcer of right foot with fat layer exposed ([facility]) History of transmetatarsal amputation of right foot ([facility]) 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 ([facility]) Unstable ankle, right Past Medical History: Diagnosis Date Acid reflux Anemia Arthritis Cataract right lens implant Charcot's joint 02/2021 left foot Chronic osteomyelitis of foot ([facility]) 02/2021 left/with draining sinus Dental disease poor repair Diabetes mellitus type 2, controlled ([facility]) 1999 Hyperlipidemia Hypertension PICC (peripherally inserted central catheter) flush 02/2021 Visual impairment glasses Past Surgical History: Procedure Laterality Date AMPUTATION SYMES LOWER EXTREMITY Left 04/18/2021 Performed by Chan Brooke DPM at [facility] AMPUTATION TOEMID FOOT OSTEOTOMY ACHILLES TENOTOMY Left 02/07/2021 Performed by Chan Brooke DPM at [facility] ASPIRATION BONE MARROW BIOPSY BONE MARROW (BONE BIOPSY) Left 03/24/2021 Performed by Chan Brooke DPM at [facility] CLOSURE WOUND LOWER EXTREMITY (DELAYED PRIMARY CLOSURE) Left 03/24/2021 Performed by Chan Brooke DPM at [facility] DEBRIDEMENT FOOT/ANKLE Left 02/07/2021 Performed by Chan Brooke DPM at [facility] EXOSTECTOMY FOOT Right 09/01/2021 Performed by Chan Brooke DPM at [facility] PHACO KELMAN I IMPLANT INTRAOCULAR LENS Right 12/28/2019 Performed by Debra Trejo MD at [facility] REMOVAL HARDWARE FOOT/TOE, AND REMOVAL ANTIBIOTIC SPACER Left 03/24/2021 Performed by Chan Brooke DPM at [facility] TONSILLECTOMY as child Social Drivers of Health Food Insecurity: No Food Insecurity (03/04/2025) Hunger Screening Food Insecurity - Worry: Never True Food Insecurity - Inability: Never True Housing Instability: Low Risk (01/06/2024) Received from [facility] Housing Stability Vital Sign Unable to Pay for Housing in the Last Year: No Number of Places Lived in the Last Year: 1 Unstable Housing in the Last Year: No Transportation Needs: Unmet Transportation Needs (01/06/2024) Received from [facility] PRAPARE - Transportation Lack of Transportation (Medical): Yes Lack of Transportation (Non-Medical): Yes Utility Difficulties: Not on file Interpersonal Safety: Unknown (01/13/2024) Received from [facility] [place] Safety & Environment Fear of Current or Ex-Partner: Not on file Emotionally Abused: Not on file Physically Abused: Not on file Sexually Abused: Not on file Physically or Sexually Abused: Not on file Financial Resource Strain: Low Risk (01/06/2024) Received from [facility] Overall Financial Resource Strain (CARDIA) Difficulty of Paying Living Expenses: Not hard at all Childcare: Low Risk (02/07/2021) Childcare Childcare: No Employment: Low Risk (02/07/2021) Employment Employment: No Purpose - Life: Low Risk (02/07/2021) Purpose - Life Purpose and direction in life: Agree Depression: Not at risk (03/13/2024) Received from [facility] PHQ-2 Patient Health Questionnaire-2 Score: 0 Alcohol Use: Not At Risk (01/06/2024) Received from [facility] AUDIT-C Frequency of Alcohol Consumption: Monthly or less Average Number of Drinks: Patient does not drink Frequency of Binge Drinking: Never Tobacco Use: Low Risk (03/28/2025) Patient History Smoking Tobacco Use: Never Smokeless Tobacco Use: Never Passive Exposure: Not on file Social Connections: Socially Isolated (01/06/2024) Received from [facility] Social Connection and Isolation Panel [NHANES] Frequency of Communication with Friends and Family: Never Frequency of Social Gatherings with Friends and Family: Never Attends [employer] Services: Never Active Member of Clubs or Organizations: Yes Attends Club or Organization Meetings: Never Marital Status: Physical Activity: Inactive (01/06/2024) Received from [facility] Exercise Vital Sign Days of Exercise per Week: 0 days Minutes of Exercise per Session: 0 min Stress: Stress Concern Present (01/06/2024) Received from [facility] [employer] [place] of Occupational [employer] - Occupational Stress Questionnaire [...] morning. TRUE METRIX GLUCOSE TEST STRIP strip amoxicillin-pot clavulanate (AUGMENTIN) 875-125 mg per tablet Take 1 tablet by mouth in the morning and 1 tablet before bedtime. Do all this for 10 days. 20 tablet 0 No current facility-administered medications for this visit. Allergies Allergen Reactions Bee Venom Protein (Honey Bee) Other (See Comments) Local swelling The following portions of the patient's history were reviewed and updated as appropriate: allergies, current medications, past family history, past medical history, past social history, past surgical history, problem list, and medication reconciliation was completed including current medication and post discharge medication. PAIN: Pain Scale 0/10: 0 [...] for headaches. Negative for numbness. Objective: Vitals: 04/11/25 1036 BP: 157/73 Pulse: 100 Resp: 16 Temp: 36.4 C (97.5 F) Physical Exam Vitals and nursing note reviewed. Constitutional: Appearance: He is well-developed. HENT: Head: Normocephalic and atraumatic. Cardiovascular: Rate and Rhythm: Regular rhythm. Tachycardia present. Pulses: Dorsalis pedis pulses are 2+ on [...] (Active) Wound Image Pre debridement Post debridement 04/11/25 1053 Site Assessment Moist;[place];Yellow;Red 04/11/25 1041 Debi-wound Assessment Dry;Callous;Maceration 04/11/25 1041 Wound Length (cm) 3.3 cm 04/11/25 1053 Wound Width (cm) 3 cm 04/11/25 1053 Wound Surface Area (cm^2) 7.78 cm^2 04/11/25 1053 Wound Depth (cm) 0.2 cm 04/11/25 1053 Wound Volume (cm^3) 1.037 cm^3 04/11/25 1053 Change in Wound Size % 24.98 04/11/25 1053 Drainage Description Serosanguineous;Yellow;Junior 04/11/25 1041 Drainage Amount Small 04/11/25 1041 Treatments Cleansed with;Wound cleanser;Soak with;Vashe/Hypochlorous Acid 04/11/25 1041 Debridement Performed? Y 04/11/25 1053 Type of Debridement Sharp to Subcutaneous 04/11/25 1053 Dressing Type Abdominal dressing;Xeroform;Gauze Rolled/Kerlix;Foam 04/11/25 1053 Dressing Changed Changed 04/11/25 1053 Dressing Status Clean;Dry;Intact 04/11/25 1053 Wound Bed Granulation (%) 75% to 100% 04/11/25 1041 Wound Bed Slough (%) < 25% 04/11/25 1041 Discussion: Debridement is the removal of foreign [...] prevent further complications. Debridement Performed by: SCOTT Vaughn Authorized by: SCOTT Vaughn Associated wounds: Wound 03/28/25 1 Diabetic Ulcer Foot Right;Plantar Consent: Consent obtained: Verbal and written Consent given by: Patient Risks discussed: Yes Debridement Details: Performed by: DRYING ROOM ATTENDANT Type: Sharp Level: Subcutaneous Tissue, Devitalized tissue [...] with muscle involvement without evidence of necrosis ([facility]) 2. History of transmetatarsal amputation of right foot ([facility]) 3. 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 ([facility]) 4. Wound, open, foot with complication, left, initial encounter 5. Unstable ankle, right Vashe Use: A) Apply gauze dressing saturated with Vashe directly to the wound bed and surrounding skin. Soak for at least 5 minutes. B) Remove saturated gauze and firmly wipe the wound bed with the soaked gauze. C) After the wound has been cleaned, gently pat dry the wound and debi wound skin are and apply dressing as ordered. Cover wound including callus with Xeroform Cover with ABD pad for protection Secure with roll gauze Off-load with a cut out [place] foam pad Change daily Renewed prescription written for Augmentin 875-125 mg b.i.d. for 10 days, dispensed 20. Referral to Dr. Stephenson's office for off-loading PAUMA boot fitting Patient instructed in diabetic foot ulcer care to right and foot. Patient verbalize ability to perform wound care. Patient verbalized understanding. We will continue to follow closely to avoid any complications or infection. Our short term goal is wound compliance. Our ferry terminal supervisor goal is wound closure. The patient was [...] infection, edema, necrotic tissue and its relationship to nonhealing wounds. Education was also provided on treatment [...] electronic or other health record - SCOTT VAUGHN 04/11/25 11:26 AM Sherri Garcia APRN, ROSALIA, CWS, NAVNEET [facility]:[phone] SCOTT Vaughn 03/28/25 1311 SCOTT Vaughn 03/28/25 1619 SCOTT Vaughn 04/11/25 1218 documented in this encounter [facility] 04-11-2025 Instructions Seema Hassan RN - 04/11/2025 10:40 AM EDT Wound Management Treatment Plan Wound Location(s): Right plantar foot HOW TO CARE FOR YOUR WOUND The following should be performed Daily and as needed. STEP 1: Cleanse wound with Soap and water, rinse well, and pat dry. Irrigate or rinse wound with NO IRRIGATION REQUIRED. STEP 2: Soak wound with Hypochlorous Acid (VASHE). For 5-10 minutes. STEP 3: Cover wound with Xeroform gauze, then ABD (Abdominal) dressing, then Rolled gauze. STEP 6: Secure dressings with Luana Wrap (Elastic Bandage) ACTIVITY: Avoid direct pressure to wound(s) at all times NUTRITION: High protein diet SKIN CARE: SWELLING CONTROL: Elevate legs whenever sitting to level of heart/hips or higher. ITEMS TO FOLLOW UP ON: Pick antibiotic Length Width Depth Wound 03/28/25 1 Diabetic Ulcer Foot Right;Plantar-Wound Length (cm): 3.3 cm Wound 03/28/25 1 Diabetic Ulcer Foot Right;Plantar-Wound Width (cm): 3 cm Wound 03/28/25 1 Diabetic Ulcer Foot Right;Plantar-Wound Depth (cm): 0.2 cm Wound drainage Type Description small Serosanginous yellow documented in this encounter [facility] 04-10-2025 Note HNO ID: [id number] Author: JEROME DEL TORO, DO Service: ? Author Type: Physician Type: Progress Notes Filed: 04/10/2025 10:33 Note Text: [facility] [place] Gastroparesis/Dysmotility Consultation SERVICE DATE: 04/10/2025 SERVICE TIME: 10:04 AM PRIMARY CARE PHYSICIAN: No primary care provider on file. Imad Asaad [address] [place] [id number] My final recommendations will be communicated back to the requesting physician by way of shared Medical record or letter to requesting physician via [place] mail. Assessment ASSESSMENT 59 year old male with medical refractory gastroparesis, the etiology of which is most likely diabetic. There is no clinical suspicion for mid/hind-gut dysmotility based on bowel patterns and symptom distribution. Case is further confounded by multiple associated diabetic complications including foot amputation, CKD 3, neuropathy. Currently patient is tolerating a Soft diet, and does not exhibit severe malnutrition/weight loss, and is actively gaining weight Based on patient's etiology, current symptoms, and dysmotility workup, I feel that patient is an appropriate candidate for pyloric therapy. It was discussed in detail that the procedure would primarily aim to improve symptoms of vomiting/retching as well as delayed fullness. There may be some ancillary improvements to a lesser extent in areas of nausea and upper abdominal pressure, but is not guaranteed. Symptoms response of pain, nausea, bloating, and bowel patterns are unpredictable and may be confounded by other factors. Patient will ultimately require longitudinal adjunctive care including medical, nutritional/dietary, and behavioral/psychosocial support for optimal symptom palliation PLAN I discussed surgical therapy for gastroparesis in detail. Based on this discussion, More Kingsley Jr. wishes to proceed with peroral pyloromyotomy 1. Diabetic gastroparesis (HCC) (E11.43) Chronic condition with onset in mid to late 20s, characterized by persistent nausea and vomiting. Abnormal gastric emptying study in October 2020 showed 17% retention at 4 hours. No prior treatment with metoclopramide. No history of abdominal surgery or Botox injections. No significant cardiac issues reported. -Gastroparesis diet as tolerated, [facility] packet provided - Initiated Gemoti nasal spray, 1 spray in one nostril 3-4 times daily. Educated patient on potential side effects, including tremors and twitching, and advised to discontinue use if these occur. - Discussed G-POEM procedure, including risks (1% complication rate) and post-procedure requirements (high-dose Protonix and Carafate BID for 30 days, liquid diet 3 days pre-procedure and 1 week post-procedure). Patient expressed interest in proceeding with the procedure. -Protonix and Carafate twice daily 30 days postop - Nurse to coordinate scheduling for the G-POEM procedure. -Behavioral health eval today - Follow-up 4 weeks after procedure for recheck Patient declines enrollment in EMPTIES and CGM trials which were discussed and offered Risks of the procedure including bleeding (including major bleeding requiring transfusion), perforation, infection/abscess, ulceration (need for adherence to acid suppressive therapy), exacerbation of symptoms, symptom recurrence, anesthesia related complications, cardiopulmonary events, thromboembolic events, aspiration/pneumonia, dental gum injury, failure to identify/treat a condition, need for additional procedures/surgeries, as well as other rare complications including were presented. Alternatives of Pyloroplasty, Pyloric Dilation and Botox, and continued medical/dietary management were reviewed. Patient elects to proceed and full written consent was obtained. __ NAME: More Kingsley Jr. CLINIC NO: [id number] DATE OF SERVICE: April 10, 2025 This is an initial consultation for More Kingsley Jr. who was referred to me by Dr. Tracy Yoon for evaluation of medical refractory gastroparesis. My final recommendation will be communicated via shared electronic medical record. CHIEF COMPLAINT Diabetic Gastroparesis HISTORY OF PRESENT ILLNESS More Kingsley Jr. is a 59 year old male who comes in today for surgical evaluation for management of gastroparesis. The patient has been evaluated thoroughly including an EGD, and gastric emptying study. More is a 59-year-old male with a history of diabetes mellitus, GERD, nephrolithiasis, HTN, and HLD, presenting for an initial surgical consultation regarding medically refractory gastroparesis. More reports a long-standing history of gastroparesis symptoms, including emesis of stomach acid, which began in his mid to late 20s. He describes a persistent sensation of nausea, particularly in the mornings, and frequent emesis, which he rates as a 3 on a scale of 0 to (more content not included)... [facility] 04-10-2025 Note HNO ID: [id number] Author: ANDREY ESTRELLA MA Service: ? Author Type: Cardiovascular Technologist Type: Progress Notes Filed: 04/10/2025 10:33 Note Text: What is the reason for your visit today? Consult /empties Who is your referring physician? Tracy Yoon Are you having poor oral intake? YES Have you had unintentional weight loss of 15 lbs/7 Kg in the last 3-6 months? NO Bowels: regular Wound: clean AND dry Temperature: No Drains: No [facility] 04-10-2025 Note HNO ID: [id number] Author: COURTNEY GLOVER PSYD Service: ? Author Type: Psychologist Type: Progress Notes Filed: 04/10/2025 13:08 Note Text: INITIAL [facility] CONTACT Date of Encounter: April 10, 2025 Identifying Information Name: More Kingsley Jr. : 1965 Age: [age] year old Sex: male Race or Ethic Origin: IMPRESSIONS More D Ickes Jr. is a 59 year old male with a history of gastroparesis who was referred to behavioral health by Dr. Figueredo for evaluation and treatment of lifestyle and behavioral factors that may be contributing to symptoms. Patient presents with 10 year history of vomiting in the mornings, secondary to poorly controlled diabetic gastroparesis. Most recent A1C in April 2024 was 11.3. Patient is not actively checking his blood sugar--previously had used finger pricks but has been out of supplies for some time and is having trouble coordinating between his physician and pharmacist to get the supplies he needs to be able to monitor this more closely. There is some misinformation about his diabetes management, where patient describes desiring to have the virus surrounding my pancreas cut out or having a pig pancreas transplanted in so I can eat sweets again. In addition to GI symptoms, the patient describes chronic insomnia, diffuse bodily pain, and chronic headaches/migraines since photographer news. He denies any significant psychiatric history and has never been engaged in psychotherapy nor taken any medication for his mood, citing he does not see the point. Patient identified goals of less nausea/vomiting, more athletic physique. We discussed the following plan: -Discussed consult to endocrinology for better management of diabetes. Patient declined. -I do not think the patient is a candidate for brain gut behavioral therapies given lack of interest in behavioral therapy. -Patient should continue to follow up with medical team for further recommendations Chief Complaint: More Kingsley Jr. is a 59 year old male with a history of gastroparesis who was referred to behavioral health by Dr. Figueredo for evaluation and treatment of lifestyle and behavioral factors that may be contributing to symptoms. HPI: He does note a history of GI difficulties since childhood that were manageable until his late 20s, when he began experiencing regular vomiting. Was put on PPI which did not make any difference. Patient reported after toe amputation around 10 years ago, he began experiencing daily frequent vomiting and acid reflux. Denied abdominal pain. Vomiting: Symptoms are most problematic in the morning. Vomiting does typically relieve symptoms. Typically only one episode of vomiting. Vomiting is triggered by certain positional changes (bending over, laying flat on his back), early in the morning upon awakening, certain foods. He experiences both effortless regurgitation and effortful vomiting. Can also experience vomiting when brushing his teeth. Diabetes: Patient uses finger prick to check his blood sugars but notes he does not have the materials he needs to be able to check (missing test strips, etc). Notes he has had problems with coordination between physician and pharmacy for the medications he needs. Has had ongoing trouble managing his blood sugars. Last A1C from 04/2024 was 11.3. Balance is impaired because he is missing his prosthesis. Other diabetic complications include visual changes. Bowels: 1-2 Bms per day. Consistency has varied over time--consistency is soft, volume sounds to be moderate. If he eats too much protein, he reports more straining but this is only occasionally. Endorses incomplete evacuation but denies straining despite this sensation. Dysphagia: Notes it is harder to swallow pills than it was in the past. Only occasionally having trouble swallowing food if he swallows a larger bite. Has modified his eating to take smaller bites. URINARY SYMPTOMS []Dysuria (pain with urination)-denied [x]Difficulty voiding urine-harder to evacuate bladder when sitting compared to standing []History of frequent UTIs-denied CENTRAL SENSITIZATION [x]Pain-chronic back pain d/t multiple injuries, neuropathy, sores on feet, joint pain []Fatigue- I have energy but I don't have toes, half a foot, so it's hard for me to do things [x]Sleep difficulties-typically falls asleep around 10:30-11pm, but frequent nighttime awakenings and difficulty going back to sleep. GI symptoms do not necessarily interfere with sleep but other bodily pain can interfere with sleep. Sleep quality is described as poor. Notes that his mattress quality is poor. Occasionally wakes up gasping for air. Notes he does snore; more so if he is laying on his back. Tends to sleep on his side. [x]Headaches-since photographer news []Depression-denied ME (more content not included)... [facility] 04-10-2025 Note HNO ID: [id number] Author: ART FIGUEREDO, DO Service: ? Author Type: Physician Type: Progress Notes Filed: 04/10/2025 10:51 Note Text: GASTROPARESIS CONSULT Patient is referred by Dr. Tracy Yoon for an opinion regarding GP and my final recommendations will be communicated back to the requesting physician by way of a copy of today's office notes. PRESENTING COMPLAINT AND HISTORY More is a 59 yr old male w/hx of Diabetes 2, GERD, and gastritis that had an abnormal gastric emptying study showing 05/2024 showing 21% retention at 4 hours. Diabetes 2, diagnosed about 20 years ago, Hgb A1c - unsure and Denies neuropathy. Eats 2 meals per day. Has nausea/vomiting but no antiemetics. Has not been on prokinetics. Denies constipation or diarrhea - has an average of 1 bowel movement per day. Denies abdominal pain and states weight has been stable. Patient is interested in learning more about EMPTIES Trial: Yes Patient is a candidate for EMPTIES Trial: Yes Gastrointestinal Symptoms Reflux/heartburn: Yes GERD - takes pantoprazole Abdominal pain/discomfort: No Weight loss: stable Do you have less than 3 bowel movements per week? No Diarrhea: No Constipation: average bm is once per day. Malnutrition: No Gastroparesis Cardinal Symptom Index (CGSI) 1. Nausea: 3 2. Retchin 3. Vomitin 4. Stomach fullness: 0 5. Not able to finish a normal-sized meal: 0 6. Feeling excessively full after meals: 3 7. Loss of appetite: 0 8. Bloating (feeling like you need to loosen your clothes): 3 9. Stomach or belly visibly larger: 4 CGSI Score: 2.03 Scale (0-none; 1-very mild; 2-mild; 3-moderate; 4-severe; 5-very severe) MEDICATION HISTORY Promotility Drugs - Reglan (Metoclopramide): No - Gimoti (Metoclopramide nasal): No - Motilium (Domperidone): No - Erythromycin (E-mycin): No - Propulsid (Cisapride)_: No Other - Tricyclic Antidepressants (nortriptyline - Pamelor; amitriptyline - Elavil): No - Buspirone (Buspar): No - Mirtazapin (Remeron): No Anti-Nausea Medications - Compazine (Prochlorperazine): No - Phenergan (Promethazine): No - Benadryl (Diphenhydramine): No - Zofran (Ondansetron): No - Scopace (Scopolamine Patch): No - Granisetron (Kytril or Sancuso): No - Tigan (Trimethobenzamide)_: No GLP-1 Receptor Agonists (for Diabetes or Weight loss): No Constipation Medications - Bulking Agents (Metamucil,Citrucel, Fibercon): No - Osmotic Laxatives (MOM, Polyethylene glycol (PEG), lactulose, sorbitol,MiraLax, Chronulal, Cephulac,Xylitol): No - Stimulant Laxatives (Ex-Lax, Senokot,Correctol, Dulcolax): No - Stool Softeners (Colace): No - Chloride Channel Activator (Amitiza): No - Linzess: No - Trulance: No - Motegrity: No - Ibsrella: No Pain Medications - Does the patient see a paint coating machine operator for chronic pain?No - Is the patient taking narcotic pain medication for chronic abdominal pain? No - Narcotic Medications: (Tramadol, Fentanyl, codeine, hydrocodone, Hydromorphone, methadone, morphine, Oxycodone) No Drug use - History or current drug use (Marijuana, Cocaine, Heroine, etc...) No Eating Disorders - Does the patient have a history of eating disorders No Psychiatric Disorders - Does the patient have a history of psychiatric disorders including PTSD: No Nutrition - Has the patient met with a marketing consultant for diet recommendations with Gastroparesis? No - Jejunostomy (J-tube): _No - Gastrostomy (G-tube): No - Gastro-Jejunostomy (GJ-tube): _No - Nasojejunal (NJ-tube): _No - Nasogastric (NG-tube): _No - TPN (IV): _No - IV home hydration (IV): _No Medical Records - Has the patient had a smart capsule study completed? No - Does the patient have a history of any foregut surgery (vagotomy, hiatal hernia repair/RAMESH Fundoplication, Heller Myotomy, gastrectomy, gastric bypass)?No If surgery, recent UGI? No - EGD: Yes - Botox Injections: No Patient Name More Kingsley Jr. Age [age] year old Gastroparesis Consult Test Date Completed Results Labs EGD 02/03/2024 Impression: Gastritis, gastric biopsies were negative for H. Pylori, duodenal biopsies were negative for celiac disease. Gastric Emptying Study 06/12/2024 Findings: Retention: - 30 min 86% - 1 hour 81% - 2 hours 52% - 3 hours 32% - 4 hours 21% Impression: Evidence of gastroparesis Gastric Emptying Study 11/13/2020 Impression Delayed gastric emptying. FINDINGS: There is delayed emptying of the gastric contents into the intestine. Residual gastric activity is calculated as follows: 1 HOUR: 78% (normal range = 30-90%). 2 HOURS: 59% (normal range = 0-60%). 4 HOURS: 17% (normal range = 0-10%). CT Abd/Pelvis 06/06/2024 Impression: No acute findings. Hepatic steatosis. Possible Megaly. Nondistended small bowel CT Abd/Pelvis 11/15/2020 Impression 1. Single bilateral punctate nonobstructing renal calculi. No evidence of an (more content not included)... [facility] 04-05-2025 Telephone encounter Note SPECIALTY CARE COORDINATION CHART REVIEW Contacted patient regarding upcoming appointment in the Gastroparesis Clinic. No answer. Message and call back number provided. Patient identified for Care Coordination from: gastroparesis diagnosis Last PCP office visit: Visit date not found Next OV: 04/10/2025 CHRONIC DX: gastroparesis CARE COORDINATION OUTREACH PLAN: New patient call; awaiting call back Shena Stockton RN April 05, 2025 [facility] 04-05-2025 Miscellaneous Notes SPECIALTY CARE COORDINATION CHART REVIEW Contacted patient regarding upcoming appointment in the Gastroparesis Clinic. No answer. Message and call back number provided. Patient identified for Care Coordination from: gastroparesis diagnosis Last PCP office visit: Visit date not found Next OV: 04/10/2025 CHRONIC DX: gastroparesis CARE COORDINATION OUTREACH PLAN: New patient call; awaiting call back Shena Stockton RN April 05, 2025 documented in this encounter [facility] 03-28-2025 History of Present illness Narrative Associated Order(s): Debridement Post-Procedure Diagnose(s): Diabetic ulcer of right midfoot associated with type 2 diabetes mellitus, with muscle involvement without evidence of necrosis (CMS-HCC); History of transmetatarsal amputation of right foot (CMS-HCC) Images from the original note were not included. Wound Care Progress Note Patient: More Kingsley Jr. Date of : 1965 Chief Complaint: Right foot ulcer New patient evaluation Subjective/HPI: More is a 59 y.o. male who present to [facility] for evaluation of 1 ulcer(s) on the right plantar midfoot. Patient established with wound clinic 03/28/2025. Current wound care includes: Presents with dry dressing in place. Patient presents with a prosthetic of the left foot. Patient was seen in the emergency room 03/04/2025 for concerns of infection of the right foot. Patient was given antibiotics doxycycline. X-ray of the right foot impression no soft tissue gas or evidence of osteomyelitis. 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 Brooke Measurable wound changes: New wound evaluation Patient accompanied by: Self, ambulatory Nutritional screen shows patient does take in three servings of protein per day. Patient does deny fever, chills, sweats or other symptoms of infection. Prescribed antibiotics: Completed 10 day doxycycline as prescribed. Review of wound culture 03/04/2025 omponent Ref Range & Units (hover) Gram Stain Result 0 WHITE BLOOD CELLS/LPF 0 SQUAMOUS EPITHELIAL CELLS/LPF MANY GRAM POSITIVE COCCI IN CLUSTERS IN CHAINS Culture MANY STREPTOCOCCUS AGALACTIAE (GROUP B) Abnormal MANY STAPHYLOCOCCUS AUREUS METHICILLIN RESISTANT Abnormal MANY STAPHYLOCOCCUS AUREUS METHICILLIN RESISTANT VARIANT Abnormal Resulting Agency [facility] Today's reported Blood sugar: Patient does not check blood sugars, states he does not have a glucometer Lab Results Component Value Date HGBA1C 11.3 (H) 05/01/2024 HGBA1C 9.0 (H) 07/20/2023 Contributing comorbid conditions: Poorly controlled diabetes, abnormal gait, history of right and left foot amputation Labs/Imaging/Cardiovascular: Patient's chart was reviewed for all available supporting documentation, laboratory results and radiographic examination including external notes. Patient Active Problem List Diagnosis Sepsis ([facility]) Diabetic ulcer of left midfoot associated with type 2 diabetes mellitus, with necrosis of bone ([facility]) Chronic osteomyelitis of left foot with draining sinus ([facility]) Wound, open, foot with complication, left, initial encounter Charcot's joint of foot, left Diabetes mellitus ([facility]) Hyperlipidemia Osteomyelitis of left foot ([facility]) Ulcer of right foot with fat layer exposed ([facility]) History of transmetatarsal amputation of right foot ([facility]) Past Medical History: Diagnosis Date Acid reflux Anemia Arthritis Cataract right lens implant Charcot's joint 02/2021 left foot Chronic osteomyelitis of foot ([facility]) 02/2021 left/with draining sinus Dental disease poor repair Diabetes mellitus type 2, controlled ([facility]) 1999 Hyperlipidemia Hypertension PICC (peripherally inserted central catheter) flush 02/2021 Visual impairment glasses Past Surgical History: Procedure Laterality Date AMPUTATION SYMES LOWER EXTREMITY Left 04/18/2021 Performed by Chan Brooke DPM at [facility] AMPUTATION TOEMID FOOT OSTEOTOMY ACHILLES TENOTOMY Left 02/07/2021 Performed by Chan Brooke DPM at [facility] ASPIRATION BONE MARROW BIOPSY BONE MARROW (BONE BIOPSY) Left 03/24/2021 Performed by Chan Brooke DPM at [facility] CLOSURE WOUND LOWER EXTREMITY (DELAYED PRIMARY CLOSURE) Left 03/24/2021 Performed by Chan Brooke DPM at [facility] DEBRIDEMENT FOOT/ANKLE Left 02/07/2021 Performed by Chna Brooke DPM at [facility] EXOSTECTOMY FOOT Right 09/01/2021 Performed by Chan Brooke DPM at [facility] PHACO KELMAN I IMPLANT INTRAOCULAR LENS Right 12/28/2019 Performed by Debra Trejo MD at [facility] REMOVAL HARDWARE FOOT/TOE, AND REMOVAL ANTIBIOTIC SPACER Left 03/24/2021 Performed by Chan Brooke DPM at [facility] TONSILLECTOMY as child Social Drivers of Health Food Insecurity: No Food Insecurity (03/04/2025) Hunger Screening Food Insecurity - Worry: Never True Food Insecurity - Inability: Never True Housing Instability: Low Risk (01/06/2024) Received from [facility] Housing Stability Vital Sign Unable to Pay for Housing in the Last Year: No Number of Places Lived in the Last Year: 1 Unstable Housing in the Last Year: No Transportation Needs: Unmet Transportation Needs (01/06/2024) Received from [facility] PRAPARE - Transportation Lack of Transportation (Medical): Yes Lack of Transportation (Non-Medical): Yes Utility Difficulties: Not on file Interpersonal Safety: Unknown (01/13/2024) Received from [facility] Safety & Environment Fear of Current or Ex-Partner: Not on file Emotionally Abused: Not on file Physically Abused: Not on file Sexually Abused: Not on file Physically or Sexually Abused: Not on file Financial Resource Strain: Low Risk (01/06/2024) Received from [facility] Overall Financial Resource Strain (CARDIA) Difficulty of Paying Living Expenses: Not hard at all Childcare: Low Risk (02/07/2021) Childcare Childcare: No Employment: Low Risk (02/07/2021) Employment Employment: No Purpose - Life: Low Risk (02/07/2021) Purpose - Life Purpose and direction in life: Agree Depression: Not at risk (03/13/2024) Received from [facility] PHQ-2 Patient Health Questionnaire-2 Score: 0 Alcohol Use: Not At Risk (01/06/2024) Received from [facility] AUDIT-C Frequency of Alcohol Consumption: Monthly or less Average Number of Drinks: Patient does not drink Frequency of Binge Drinking: Never Tobacco Use: Low Risk (03/04/2025) Patient History Smoking Tobacco Use: Never Smokeless Tobacco Use: Never Passive Exposure: Not on file Social Connections: Socially Isolated (01/06/2024) Received from [facility] Social Connection and Isolation Panel [NHANES] Frequency of Communication with Friends and Family: Never Frequency of Social Gatherings with Friends and Family: Never Attends [employer] Services: Never Active Member of Clubs or Organizations: Yes Attends Club or Organization Meetings: Never Marital Status: Physical Activity: Inactive (01/06/2024) Received from [facility] Exercise Vital Sign Days of Exercise per Week: 0 days Minutes of Exercise per Session: 0 min Stress: Stress Concern Present (01/06/2024) Received from [facility] [employer] [place] [employer] Occupational Health - Occupational Stress Questionnaire [...] with meals. Indications: type 2 diabetes mellitus. TRUE [employer] GLUCOSE TEST STRIP strip amoxicillin-pot clavulanate (AUGMENTIN) 875-125 mg per tablet Take 1 tablet by mouth in the morning and 1 tablet before bedtime. Do all this for 10 days. 20 tablet 0 omeprazole (PriLOSEC) 40 mg capsule Take 1 capsule (40 mg total) by mouth in the morning. pantoprazole (PROTONIX) 40 mg EC tablet Take 1 tablet (40 mg total) by mouth in the morning. No current facility-administered medications for this visit. Allergies Allergen Reactions Bee Venom Protein (Honey Bee) Other (See Comments) Local swelling The following portions of the patient's history were reviewed and updated as appropriate: allergies, current medications, past family history, past medical history, past social history, past surgical history, problem list, and medication reconciliation was completed including current medication and post discharge medication. PAIN: Pain Scale 0/10: 0 [...] for headaches. Negative for numbness. Objective: Vitals: 03/28/25 1056 BP: 144/85 Pulse: 94 Resp: 16 Temp: 36.5 C (97.7 F) Physical Exam Vitals and nursing note reviewed. [...] breath sounds. No wheezing or rales. Musculoskeletal: General: Normal range of motion. Cervical back: Normal range of motion. Feet: Right foot: Skin integrity: Callus and fissure present. Comments: Left foot amputated, prothesis in place Right foot TMa Skin: General: Skin is warm and dry. Neurological: Mental Status: He is alert and oriented to person, place, and time. Wound Assessment: Wound 03/28/25 1 Diabetic Ulcer Foot Right;Plantar (Active) Wound Image Heavy callus burden 03/28/25 1117 Site Assessment Yellow;Red;Moist 03/28/25 1104 Debi-wound Assessment Brown;Red;Maceration 03/28/25 1104 Wound Length (cm) 4 cm 03/28/25 1104 Wound Width (cm) 3.3 cm 03/28/25 1104 Wound Surface Area (cm^2) 10.37 cm^2 03/28/25 1104 Wound Depth (cm) 0.2 cm 03/28/251103 Wound Volume (cm^3) 1.382 cm^3 03/28/25 110 Drainage Description Serosanguineous;Junior;Yellow 03/28/251103 Drainage Amount Small 03/28/251103 Treatments Cleansed with;Wound cleanser;Soak with;Vashe/Hypochlorous Acid 03/28/251103 Debridement Performed? Y 03/28/251116 Type of Debridement Sharp to Subcutaneous 03/28/251116 Dressing Type Abdominal dressing;Xeroform;Gauze Rolled/Kerlix 03/28/251116 Dressing Changed New 03/28/251116 Dressing Status Clean;Dry;Intact 03/28/251116 Wound Bed Granulation (%) 75% to 100% 03/28/251103 Wound Bed Slough (%) < 25% 03/28/251103 Discussion: Debridement is the removal of foreign [...] prevent further complications. Debridement Performed by: SCOTT Vaughn Authorized by: SCOTT Vaughn Consent: Consent obtained: Verbal and written Consent given by: Patient Risks discussed: Yes Debridement Details: Performed by: DRYING ROOM ATTENDANT Type: Sharp Level: Subcutaneous Tissue, Devitalized tissue [...] with muscle involvement without evidence of necrosis ([facility]) 2. History of transmetatarsal amputation of right foot ([facility]) 3. Visit for wound check Vashe Use:sample given A) Apply gauze dressing saturated with Vashe directly to the wound bed and surrounding skin. Soak for at least 5 minutes. B) Remove saturated gauze and firmly wipe the wound bed with the soaked gauze. C) After the wound has been cleaned, gently pat dry the wound and debi wound skin are and apply dressing as ordered. cover wound including callus with Xeroform Cover with ABD pad for protection Secure with roll gauze Off-load with a cut out [place] foam pad Change daily Discussed various offloading boots, we will ask podiatry for recommendation. Prescription written for Augmentin 875-125 mg b.i.d. for 10 days, dispensed 20. Patient instructed in diabetic foot ulcer care to right and foot. Patient verbalize ability to perform wound care. Patient verbalized understanding. We will continue to follow closely to avoid any complications or infection. Our short term goal is wound compliance. Our ferry terminal supervisor goal is wound closure. The patient was [...] infection, edema, necrotic tissue and its relationship to nonhealing wounds. Education was also provided on treatment plan. Patient verbalized understanding. Follow up wound clinic in 1 week. Instructed to contact wound clinic/PCP or ER should symptoms worsen. Total time spent was 25 minutes: Preparing to see the patient (e.g., review of tests) Obtaining and/or reviewing separately obtained history Performing a medically appropriate examination and/or evaluation Counseling and educating the patient/family/caregiver Ordering medications, tests, or procedures Documenting clinical information in the electronic or other health record - SCOTT VAUGHN 03/28/25 12:31 PM Sherri Garcia APRN, ROSALIA, CWS, [employer] [employer] [facility]:[phone] SCOTT Vaughn 03/28/25 1728 SCOTT Vaughn 03/28/25 4216 documented in this encounter [facility] 03-28-2025 Instructions Seema Hassan RN - 03/28/2025 10:40 AM EDT Wound Management Treatment Plan Wound Location(s): Right plantar foot HOW TO CARE FOR YOUR WOUND The following should be performed Daily and as needed. STEP 1: Cleanse wound with Soap and water, rinse well, and pat dry. Irrigate or rinse wound with NO IRRIGATION REQUIRED. STEP 2: Soak wound with Hypochlorous Acid (VASHE). For 5-10 minutes. STEP 3: Cover wound with Xeroform gauze, then ABD (Abdominal) dressing, then Rolled gauze. STEP 6: Secure dressings with Luana Wrap (Elastic Bandage) ACTIVITY: Avoid direct pressure to wound(s) at all times NUTRITION: High protein diet SKIN CARE: SWELLING CONTROL: Elevate legs whenever sitting to level of heart/hips or higher. ITEMS TO FOLLOW UP ON: Pick antibiotic Length Width Depth Wound 03/28/25 1 Diabetic Ulcer Foot Right;Plantar-Wound Length (cm): 4 cm Wound 03/28/25 1 Diabetic Ulcer Foot Right;Plantar-Wound Width (cm): 3.3 cm Wound 03/28/25 1 Diabetic Ulcer Foot Right;Plantar-Wound Depth (cm): 0.2 cm Wound drainage Type Description moderate Serosanginous yellow documented in this encounter [facility] 11-21-[address] Yoon's office phones requesting office note from October 24 When completed, please fax to [phone] Leonard Cadet [facility] 11-21-[address] Yoon's office phones requesting office note from October 24 When completed, please fax to [phone] Leonard Cadet documented in this encounter [facility] 06-22-2024 Telephone encounter Note Gp ref and ges in scanned docs Needs registration [facility] 06-22-2024 Miscellaneous Notes Gp ref and ges in scanned docs Needs registration documented in this encounter [facility] 05-09-2024 Evaluation note Authored May 09, 2024 2:36 pm 58-year-old man with recurre nt nausea and vomiting came today for follow-up + Recurrent nausea and vomiting associated with abdominal pain. EGD on 02/03/2024 showed gastritis, gastric biopsies were negative for H. pylori, duodenal biopsies were negative for celiac disease. Symptoms are not responsive to PPI + Uncontrolled diabetes Will arrange for CT abdomen/pelvis. Will arrange for gastric emptying study. [facility] Work Phone: 1(908) 247-985003-14-2024 [facility]* Encounter Date Diagnosis Assessment Notes Treatment Notes Treatment Clinical Notes Nov, GERD (gastroesophageal reflux disease) (ICD-10 - K21.9) Nov, Nausea & vomiting (ICD-10 - R11.2) Patient reports that he has no improvement Patient is advised to start amitriptyline 25 mg HS if patient has no improvement with the addition of amitriptyline an EGD will be considered Patient is to continue with famotine and pantoprazole [facility] Other 12-18-2023 Evaluation note* Encounter Date Diagnosis Assessment Notes Treatment Notes Treatment Clinical Notes Oct, Insulin long-term use (ICD-10 - Z79.4) Oct, Diabetes mellitus type 2 with complications (ICD-10 - E11.8) 1. Uncontrolled, a Type 2 diabetes with A1c of 10.4% 2. Blood glucose levels above target. Pt oppositional/agitat ed while questioning during Hpi and with any recommendations- declined diabetes education, declined modifying adding diabetes medications, declined any educational material. Recommend he be seen by endocrinology d/t complicated diabetes history. Offered referral to Dr. Wallis, pt agreeable. 3. Patient is alert, oriented NOT receptive to making changes or counseling 4. Recommend referral to Dr. Wallis Endocrinology to further manage patient's diabetes. Oct, Dietary counseling and surveillance (ICD-10 - Z71.3) see above Oct, HTN (hypertension) (ICD-10 - I10) on luana Oct, Hyperlipidemia (ICD-10 - E78.5) on statin Oct, BMI 36.0-36.9,adult (ICD-10 - Z68.36) Oct, Skin breakdown (ICD-10 - L90.9) recommend f/u with Dr. Stephenson [facility] Other 10-04-2023 Evaluation note* Encounter Date Diagnosis Assessment Notes Treatment Notes Treatment Clinical Notes Aug, Nausea & vomiting (ICD-10 - R11.2) Pt states he vomits mostly in the morning. Aug, GERD (gastroesophageal reflux disease) (ICD-10 - K21.9) Pt states the omeprazole is not working Pt to be on pantoprazle 40mg bid Pt to start pepcid 40 bid Pt to try the low fod map diet Pt RTO in 3 months [facility] Other 04-04-2023 Evaluation note* Encounter Date Diagnosis Assessment Notes Treatment Notes Treatment Clinical Notes Feb, Nausea & vomiting (ICD-10 - R11.2) Patient states that the vominting actually got worse once he switched to omeprazole. It has calmed down recently but still has the vomiting mostly in the morning. Patient to have allergy testing done to see if there are any food allergies. Feb, GERD (gastroesophageal reflux disease) (ICD-10 - K21.9) [facility] Other 10-04-2022 Evaluation note* Encounter Date Diagnosis Assessment Notes Treatment Notes Treatment Clinical Notes Aug, GERD (gastroesophageal reflux disease) (ICD-10 - K21.9) Stop Pantoprazole Start Omeprazole 40mg bid, 30 minutes prior to the first meal and last meal of the day. Follow up in 6 months Aug, Nausea & vomiting (ICD-10 - R11.2) [facility] Other Chi complaint+Reason for visit Narrative* Chief Complaint Referral Cheng Hahn lz DM 6 week follow up Reason for Visit Nausea and vomiting [facility] Other [facility] note* Diagnosis Onset Date Resolution Status Nausea and vomiting acute [facility] Work Phone: evaluation note* Diagnosis Diabetic ulcer of right midfoot associated with type 2 diabetes mellitus, with muscle involvement without evidence of necrosis (CMS-HCC)- Primary History of transmetatarsal amputation of right foot ([facility]) Visit for wound check [facility] Diagnosis Diabetic ulcer of right midfoot associated with type 2 diabetes mellitus, with muscle involvement without evidence of necrosis (CMS-HCC)- Primary History of transmetatarsal amputation of right foot (CMS-HCC) 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 ([facility]-HCC) Wound, open, foot with complication, left, initial encounter Unstable ankle, right [facility] Diagnosis Benign essential HTN- Primary Type 2 diabetes mellitus with foot ulcer, with long-term current use of insulin (CMS-HCC) Chronic midline low back pain without sciatica Fatty liver disease, nonalcoholic Visit for wound check Hyperglycemia Other abnormal glucose Gastroesophageal reflux disease, unspecified whether esophagitis present [facility] Diagnosis Diabetic ulcer of right midfoot associated with type 2 diabetes mellitus, with muscle involvement without evidence of necrosis (CMS-HCC)- Primary 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) [facility] Diagnosis Benign essential HTN- Primary Type 2 diabetes mellitus with foot ulcer, with long-term current use of insulin (CMS-HCC) Chronic midline low back pain without sciatica Fatty liver disease, nonalcoholic Visit for wound check Hyperglycemia Other abnormal glucose Gastroesophageal reflux disease, unspecified whether esophagitis present Type 2 diabetes mellitus with foot ulcer, with long-term current use of insulin (CMS-HCC) Benign essential HTN Gastroesophageal reflux disease, unspecified whether esophagitis present Chronic midline low back pain without sciatica Encounter for screening for malignant neoplasm of prostate Fatigue, unspecified type [facility] Diagnosis Benign essential HTN- Primary Type 2 diabetes mellitus with foot ulcer, with long-term current use of insulin ([facility]) Chronic midline low back pain without sciatica Fatty liver disease, nonalcoholic Visit for wound check Hyperglycemia Other abnormal glucose Gastroesophageal reflux disease, unspecified whether esophagitis present Type 2 diabetes mellitus with foot ulcer, with long-term current use of insulin (CMS-HCC) Benign essential HTN Gastroesophageal reflux disease, unspecified whether esophagitis present Chronic midline low back pain without sciatica Encounter for screening for malignant neoplasm of prostate Fatigue, unspecified type Type 2 diabetes mellitus with foot ulcer, with long-term current use of insulin ([facility]) documented [facility] Diagnosis Benign essential HTN- Primary Type 2 diabetes mellitus with foot ulcer, with long-term current use of insulin (CMS-HCC) Chronic midline low back pain without sciatica Fatty liver disease, nonalcoholic Visit for wound check Hyperglycemia Other abnormal glucose Gastroesophageal reflux disease, unspecified whether esophagitis present Type 2 diabetes mellitus with foot ulcer, with long-term current use of insulin (CMS-HCC) Benign essential HTN Gastroesophageal reflux disease, unspecified whether esophagitis present Chronic midline low back pain without sciatica Encounter for screening for malignant neoplasm of prostate Fatigue, unspecified type Type 2 diabetes mellitus with foot ulcer, with long-term current use of insulin ([facility])- Primary documented in this encounter [facility] Author Tracy Yoon [facility] February 03, 2024 2:08pm Note Date/Time February 03, 2024 2:0 8pm [facility] [address] [place] [address] Gastroenterology H&P Signed Patient: More Kingsley MR#: [id number] : 1965 Acct:[id number] Age/Sex: 58 / M Adm Date: 4 Loc: Room: Type: [facility] Attending Dr: Tracy Yoon MD Copies to: MD Cheng Goodman NP-C~ Date of Service: 02/03/2024 HISTORY & PHYSICAL: Patient's history with special attention to the cardiovascular, pulmonary systems and the current problem was reviewed with the patient immediately prior to the procedure. Present medications and doses reviewed in the EMR. Allergies and pertinent laboratory tests were also reviewedat this time in the EMR. The physical examination, as below, was then performed. Indication, assessment and HPI: 58-year-old man here for EGD for evaluation of nausea and vomiting Family history of GI malignancy? No PHYSICAL EXAMINATION Mouth and Pharynx : Moist mucus membranes, normal dentition Cardiac: Regular rate, regular rhythm Pulmonary: Clear to auscultation bilaterally, no wheezing Neurological: Alert and oriented x3, no focal deficits noted Abdomen: Abdomen soft, non-tender REVIEW OF SYSTEMS Constitutional: Denies malaise, fevers Cardiovascular: Denies chest pain, palpitations Respiratory: Denies shortness of breath, wheezing Gastrointestinal: Per HPI Genitourinary: Denies dysuria, polyuria Musculoskeletal: Denies joint swelling, joint stiffness Neurological: Denies numbness, tingling Integumentary: Denies rashes, skin lesions Endocrine: Denies fatigue, weight loss Written informed consent obtained from the patient. Risks (including but not limited to perforation, infection, bloating, bleeding, need for emergent surgeryand loss of life), benefits and alternatives explained and questions answered. The patient verbalized understanding. Based on history patient is an appropriate candidate for the procedure. Tracy Yoon M.D. Documented By: Tracy Yoon MD 02/03/24 140 Signed By: <Electronically signed by Tracy Yoon MD> 02/03/24 1409 [facility] Work Phone: History general Narrative - Reported* Type Description Date Medical History high blood pressure Medical History high cholesterol Medical History diabetes mallitus Surgical History toes removed on right foot Surgical History left foot Surgical History right eye Hospitalization History [facility] Other History general Narrative - Reported* Type Description Date Medical History high blood pressure Medical History high cholesterol Medical History diabetes mellitus Medical History peripheral neuropathy Medical History fatty liver Medical History retinopathy Surgical History toes removed on right foot Surgical History left foot Surgical History right eye Hospitalization History [facility] Other InstructionsNot on filedocumented in this encounter [facility] SystemInstructionsNot on filedocumented in this encounter [facility] SystemReason for visit Narrativereferral Cheng Aichholz, New patient Type 2IDDM apt with [employer], [employer]-C, BC-ADMNort [facility] Other Summary Purpose Family History Relationship Condition Age at Onset Recorded Date/T heather Not Specified Diabetes mellitus Unknown sister Diabetes mellitus Unknown father Heart problem Unknown father Unknown Relationship Condition Age at Onset Recorded Date/T heather Not Specified Diabetes mellitus Unknown sister Diabetes mellitus Unknown father Heart problem Unknown Unknown Relationship Condition Age at Onset Recorded Date/T heather mother Diabetes mellitus Unknown sister Diabetes mellitus Unknown father Heart problem Unknown Unknown Advance Directives Documents on File Type Date Recorded Patient Merchandise Manager Expl anation Advance Directives and Livin g Will 11/06/2020 8:18 PM Latest Code Status on File Code Status Date Activated Date Inactivated Comments Full Code - Unverified 11/05/2020 7:21 PM 11/21/2020 1 0:03 PM Documents on File Type Date Recorded Patient Merchandise Manager Expl anation Advance Directives and Livin g Will 11/06/2020 8:18 PM Latest Code Status on File Code Status Date Activated Date Inactivated Comments Full Code - Unverified 11/05/2020 7:21 PM 11/21/2020 1 0:03 PM Documents on File Type Date Recorded Patient Merchandise Manager Expl anation Advance Directives and Livin g Will 12/19/2020 8:18 PM Documents on File Type Date Recorded Patient Merchandise Manager Expl anation Advance Directives and Livin g Will 12/27/2020 10:17 AM Documents on File Type Date Recorded Patient Merchandise Manager Expl anation Advance Directives and Livin g Will 01/09/2021 10:17 AM Documents on File Type Date Recorded Patient Merchandise Manager Expl anation Advance Directives and Livin g Will 01/24/2021 10:17 AM Documents on File Type Date Recorded Patient Merchandise Manager Expl anation Advance Directives and Livin g Will 02/06/2021 10:17 AM Advance Directive Response Recorded Date/ Time Advance Directives Yes December 7:10am Advance Directive Response Recorded Date/ Time Advance Directives Yes December 8:10am Date Activated Date Inactivated Comments 04/17/2021 12:59 PM 04/21/2021 5:08 PM Date Activated Date Inactivated Comments 02/07/2021 2:54 AM 02/13/2021 1:11 AM Date Activated Date Inactivated Comments 04/17/2021 12:59 PM 04/21/2021 5:08 PM Date Activated Date Inactivated Comments 02/07/2021 2:54 AM 02/13/2021 1:11 AM Reason for Referral Status Reason Specialty Diagnoses / Procedures Referred By Contact Referred To Contact Pending Review Specialty Services Required/[facility] Diagnoses Other acute osteomyelitis of left foot (HCC) 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 Diagnosis 1 Nausea & vomiting (R 11.2) Referral Organization [facility] Referring Provider First Name Amor Referring Provider Last Name Dichloe Referring Provider Specialty Gastroenter ology Referred Organization Unknown Facility Referred Provider Specialty Allergy/Immu nology Referral Priority Routine Reason DIABETES MANAGEMENT Diagnosis 1 Diabetes mellitus ty pe 2 with complications (E11.8) Referral Organization [facility] Referring Provider First Name Sebastián Referring Provider Last Name Map Referring Provider Specialty Nurse Pract itioner Referred Organization Unknown Facility Referred Provider Cam Wallis Referred Provider Specialty Endocrinolog y Referral Priority Routine General Notes Suzanne Jordan 10/22 04:07:26 PM >LVM FOR OFFICE TO CALL FOR SCHEDULING. Hospital Course * Palak Arora MD - 11/21/2020 2:49 PM EST HOSPITALIST DISCHARGE SUMMARY Patient: More Kingsley Account: [id number] Admitted: 11/05/2020 Discharge Date/Time: 11/21/2020 Clinical Summary FINAL DIAGNOSIS: Principal Problem: Secondary DM with DKA (HCC) Active Problems: Type 2 diabetes mellitus with retinopathy of both eyes, with long-term current use of insulin (HCC) REASON FOR HOSPITALIZATION AND ADMITTING DIAGNOSIS: No chief complaint on file. Secondary DM with DKA (HCC) [E13.10] HOSPITAL COURSE: More Kingsley is a 54 y.o. male is known for hypertension there is mellitus hyperlipidemia chronic kidney disease stage III with creatinine baseline is 1.3 and GFR 40 to 45% presumed diabetic nephropathy, is here due to swelling and pain in the left for this for the past 2 to 3 days, has also ulceron the right foot, reported feeling fatigue loss of appetite headaches, denies fevers or chills wasevaluated emergency department blood glucose elevated close to 400, elevated lactic acid and ketones, leukocytosis and acute kidney injury his creatinine is 1.8, tachycardia with frequent PVCs -Left foot cellulitis, right foot with deep-seated ulcer concern underlying deep tissue infection and osteomyelitis, with leukocytosis and elevated C-reactive protein -Acute kidney injury prerenal azotemia and infection related -Recurrent PVCs and often noticed bigeminy -Hypokalemia and hypophosphatemia -Lactic acidosis and mild ketosis We will start broad-spectrum antibiotics cultured the blood, do MRI of the feet and consult podiatry and infectious disease, insulin sliding scale and consult endocrinology, place the patient telemetry, given potassium and phosphate replacement, magnesium within acceptable range. IV hydration and follow the trend kidney function. A/P on the day of discharge was as follows: Sepsis Left foot cellulitis and osteomyelitis with MSSA Sepsis resolved on IV cefazolin, picc line placed, will need 4 weeks OP ATB CRP 132 down from 468 Pod#2 s/p debridement and application of wound vac Acute kidney injury prerenal azotemia - resolved Type II DM adequate glycemic control Endo on board Currently on lantus 25u HS, and 1:4 CHO ratio. -Recurrent PVCs and often noticed bigeminy- stable -Hypokalemia - resolved -Lactic acidosis and mild ketosis- resolved - possible dc in the coming 24 hours. - podiatry recommendations on the day of discharge was as follows: Did have a long discussion today with patient regarding limb salvage ability. Clinically the patient is improving with wound VAC therapy post washout however, he is with substantial tissue loss and is still with an elevated risk of limb loss. Despite this risk, he does wish to continue with IV antibiotics and wound VAC therapy and defer formal amputation Erythema to the foot additionally has improved and bone biopsy is pending positive for staph. Wound VAC orders at white foam plus black foam 150 mmHg VAC changes likely Wednesday. Okay to discharge to SNF from podiatric surgical intervention as there is currently no further surgical intervention warranted. Can follow-up in the wound care clinic 1 week post discharge with Dr. Cherry. CONDITION AT DISCHARGE: Stable Physical Examination: Blood pressure 109/74, pulse 96, temperature 98 F (36.7 C), temperature source Oral, resp. rate 18,height 5' 10 , weight 105 kg (231 lb 7.7 oz), SpO2 93 %. General appearance: alert, cooperative, in no acute distress. Head/Neck: Head- normocephalic. Neck- supple, non-tender, without lymphadenopathy Eyes: No Scleral icterus or pallor; EOMI ENT: Trachea midline. Cardiovascular: regular rate and rhythm; normal S1, S2; no murmurs, rubs, clicks or gallops; No/+ peripheral edema. Respiratory: lungs clear to auscultation; without wheezes, rales or rhonchi. Abdomen: soft, non tender, non-distended; positive bowel sounds. Neurological: alert, oriented, normal speech; no focal findings or movement disorder noted. Musculoskeletal: no significant deformity noted. Skin: normal coloration, texture and turgor; no lesions or eruptions. Procedures: No orders of the defined types were placed in this encounter. Consults: Procedures Inpatient consult to Podiatry Inpatient consult to Infectious Diseases Inpatient consult to Endocrinology Inpatient consult to Midlevel Provider Inpatient consult to Dietitian Inpatient consult to Enterostomal Therapy Inpatient consult to Care Management Inpatient consult to Dietitian Inpatient consult to IV Team Other Tests: No orders of the defined types were placed in this encounter. LAST LABS: Results from last 7 days Lab Units 11/21/20 0527 SODIUM mmol/L 136 POTASSIUM mmol/L 3.8 CHLORIDE mmol/L 104 BUN mg/dL 15 CREATININE mg/dL 1.01 GLUCOSE mg/dL 156* CALCIUM mg/dL 8.9 Invalid input(s): LABALBU Results from last 7 days Lab Units 11/17/20 1802 PTT seconds 32 Results from last 7 days Lab Units 11/21/20 0527 WBC K/mcL 6.26 HGB g/dL 10.3* HCT % 34.1* PLT K/mcL 494* Allergies: Patient has no known allergies. Discharge Diet: Oral nutrition supplements Tyree; Tyree [place] At dinner Oral nutrition supplements Tyree; Tyree Fruit Punch At lunch Diet Special; Diabetic; Carbohydrate Consistent 75g/meal (>2000 kCal equivalent) Disposition: Discharge Medications Medication List START taking these medications ceFAZolin IV (Outpatient Therapy) Commonly known as: ANCEF Infuse 2 (two) g (2,000 mg total) into a venous catheter every 8 (eight) hours End: 12/19/20 * insulin lispro 100 unit/mL injection Commonly known as: HumaLOG Inject 5 (five) Units under the skin 3 (three) times a day before meals . * insulin lispro 100 unit/mL injection Commonly known as: HumaLOG Sliding scale before meals: BG 150-200 = +1 unit Humalog, 201-250=+2 Units Humalog, 251-300=+3 Units Humalog, 301-350= +4 Humalog, >351 =+5 units Humalog . * This list has 2 medication(s) that are the same as other medications prescribed for you. Read thedirections carefully, and ask your doctor or other care provider to review them with you. CHANGE how you take these medications insulin glargine 100 unit/mL injection Commonly known as: LANTUS Inject 25 (twenty five) Units under the skin nightly . What changed: how much to take when to take this additional instructions Another medication with the same name was removed. Continue taking this medication, and follow the directions you see here. CONTINUE taking these medications metFORMIN 1000 MG tablet Commonly known as: GLUCOPHAGE STOP taking these medications insulin aspart U-100 100 unit/mL injection Commonly known as: NovoLOG Where to Get Your Medications You can get these medications from any pharmacy Bring a paper prescription for each of these medications ceFAZolin IV (Outpatient Therapy) Information about where to get these medications is not yet available Ask your nurse or doctor about these medications insulin glargine 100 unit/mL injection insulin lispro 100 unit/mL injection insulin lispro 100 unit/mL injection Physician(s) Family: Cheng Staples CNP, , Address: [address] [place] [id number] Follow Up: [facility] [address] [facility] [address] Schedule an appointment as soon as possible for a visit in 2 week(s) Dr. Arabella Doyle [facility] Hosp[facility] Address: Servicing Counties: Kris Miranda, Bria, Thomas, Esdras, Radha, Ronald, Adam Johnson [phone] Patient instructions, including activity, were given to the patient/family at discharge. Please seethe After Visit Summary in the medical record for details. Time spent on discharge: > 30 minutes Completed by: Palak Arora on 11/21/20, 2:49 PM documented in this encounter Discharge Instructions * Discharge Instr - AVS First Page* Marvel Mcmillan MD - 11/21/2020 9:04 AM EST Check blood glucose 4 times a day before meals and at bedtime. Keep record of blood sugars and call your diabetes doctor as needed. * Attachments The following attachments cannot be sent through Care Everywhere. * Wound Check (Italian) documented in this encounter History of Present Illness * Jai Kumar Jr., DPRachell - 11/21/2020 2:11 PM EST Assessment: (Patient is a pleasant 55-year-old type II diabetic male with left foot abscess concern for underlying midfoot osteomyelitis now status post incision and drainage left foot, [address] Angela Cherry. ). Plan: (-Patient did improve overnight with wound VAC therapy. -Did have a long discussion today with patient regarding limb salvage ability. Clinically the patient is improving with wound VAC therapy post washout however, he is with substantial tissue loss and is still with an elevated risk of limb loss. Despite this risk, he does wish to continue with IV antibiotics and wound VAC therapy and defer formal amputation -Erythema to the foot additionally has improved and bone biopsy is pending positive for staph. -Wound VAC orders at white foam plus black foam 150 mmHg VAC changes likely Wednesday. -Okay to discharge to SNF from podiatric surgical intervention as there is currently no further surgical intervention warranted. -Can follow-up in the wound care clinic 1 week post discharge with Dr. Cherry.). Subjective no overnight events, states he slept well and is doing okay. Temp: [97.5 F (36.4 C)-98.4 F (36.9 C)] 98 F (36.7 C) Heart Rate: [87-97] 96 Resp: [14-18] 18 BP: (97-118)/(63-84) 109/74 I/O last 3 completed shifts: In: 200 [IV Piggyback:200] Out: 1950 [Urine:1725; Drains:225] I/O this shift: In: 240 [P.O.:240] Out: - Objective Vascular: DP/PT pulses are palpable +1/4 b/l. Mild lower extremity edema appreciated. Derm: Left foot open ulceration full-thickness nature to dorsal midfoot. Today there is no purulentoutput no streaking no lymphangitis. Wound site measures near 4 cm x 4 cm x 2 cm of depth directly to metatarsal and cuneiform/cuboid. Neuro: sharp dull is blunted. Protective sensation is diminished. Musk: Muscle strength to the lower extremity is 5/5 without any brooke deformities. No fluctuance orcrepitation present. Principal Problem: Secondary DM with DKA ([facility]) Active Problems: Type 2 diabetes mellitus with retinopathy of both eyes, with long-term current use of insulin ([facility]) * Joan Trejo LISW - 11/21/2020 12:27 PM EST SIMPLE DISCHARGE Date: 11/21/2020 Time: 12:27 PM Patient Name: More Kingsley Date of : 1965 Sex: Male Patient has him home vac on . He will get his last antibiotic dose early tonight before discharge. [facility] will deliver antibiotics this evening to patient's home. [facility] will start care on11/23/2020 around 0900. [facility] RN will contact patient this evening to confirm time. Home care orderssent to Arturo at [facility]. He will contact this worker if he does not receive them. Discharge Planning Living Arrangements: Alone Support Systems: Children Type of Residence: Private residence Prior to Admission Home Care Services: No Current Home Equipment: None Regulatory Documentation: Medicare IM Regulatory Documentation Status: Signed Signed: Self * Marcella Bell MD - 11/20/2020 6:47 PM EST Patient Name: More Kingsley Jr. Admit Date: MR #: [id number] : 1965 Physicians: Cheng Staples CNP (Family); No ref. provider found (Referring) Assessment: Patient with 1. Left foot abscess, with MSSA 2. Osteomyelitis with MSSA 3. Uncontrolled diabetes. 4. Abdominal pain. 5. Constipation. Plan. Continue patient on current therapyn. Continue patient on IV cefazolin. I reviewed labs, including cultures, with MSSA, and be strep. I appreciate content production specialist evaluation. Patient needs incision and drainage of left foot abscess Dressing according to content production specialist recommendation Endocrinology evaluation for adequate blood sugar control We will continue to follow with you. Not on wound VAC dressing. Status post debridement. Reviewed bone cultures with MSSA. I reviewed labs. I reviewed CT scan of the abdomen and pelvis, with moderate large amount of retained stool in the proximal colon. Status post incision and drainage of the left ankle foot. Follow-up cultures, bone culture with no growth. I discussed with Dr. Ryan Conte on management plan. On DC continue with IV cefazolin. Subjective: Patient was reevaluated again, patient continues on wound VAC, with no new symptoms. Foot swelling is improving. Exam: PACU Vitals 11/20/20 1712 BP: 116/76 Pulse: 94 Resp: 17 Temp: 98.3 F (36.8 C) SpO2: 93% Allergies: Patient has no known allergies. Current Facility-Administered Medications: acetaminophen (TYLENOL) tablet 650 mg, 650 mg, Oral, Q6H PRN, Jennifer Gamble CNP, 650 mg at 11/20/20 1417 alteplase (CATH BERTHA) injection 2 mg, 2 mg, Other, PRN, Palak Arora MD ceFAZolin (ANCEF) IVPB 2 g (premix), 2,000 mg, Intravenous, Q8H, Mady Russell CNP, Last Rate: 100 mL/hr at 11/20/20 1358, 2,000 mg at 11/20/20 1358 sodium chloride (PF) (NS) 0.9 % contrast line flush 10 mL, 10 mL, Intravenous, Once in imaging AND sodium chloride (PF) (NS) 0.9 % contrast line flush 10 mL, 10 mL, Intravenous, Once in imaging AND gadoterate meglumine (DOTAREM) injection 20 mL, 20 mL, Intravenous, Once in imaging, Bethanie Pinedo MD heparin (porcine) injection 5,000 Units, 5,000 Units, Subcutaneous, Q8H SANCHO, Chuyita Arias MD, 5,000 Units at 11/20/20 1359 insulin glargine (LANTUS) injection 25 Units, 25 Units, Subcutaneous, Nightly, Chuyita Arias MD, 16 Units at 11/19/20 2144 insulin lispro (HumaLOG) injection 0-15 Units, 0-15 Units, Subcutaneous, at bedtime, Jack Hair CNP, 2 Units at 11/06/20 2105 insulin lispro (HumaLOG) injection 0-30 Units, 0-30 Units, Subcutaneous, Daily before lunch, Marvel Mcmillan MD, 6 Units at 11/20/20 1355 insulin lispro (HumaLOG) injection 0-30 Units, 0-30 Units, Subcutaneous, Before dinner, Marvel Calero MD, 4 Units at 11/20/20 1821 [START ON 11/21/2020] insulin lispro (HumaLOG) injection 0-30 Units, 0-30 Units, Subcutaneous, QAM AC, Marvel Mcmillan MD ipratropium-albuteroL (DUO-NEB) 0.5-2.5 mg/3 ml nebulizer solution 3 mL, 3 mL, Inhalation, Q2H PRN,Flako Pinedo MD lidocaine 10 mg/mL (1 %) injection 1 mL, 1 mL, Intradermal, Once PRN, Palak Arora MD naloxone (NARCAN) injection 0.1 mg, 0.1 mg, Intravenous, PRN AND Notify physician, , , Until Discontinued AND naloxone (NARCAN) injection 0.4 mg, 0.4 mg, Intravenous, PRN, Jean Farley MD ondansetron (ZOFRAN) injection 4 mg, 4 mg, Intravenous, Q6H PRN, Flako Pinedo MD, 4 mg at 11/11/202050 oxyCODONE-acetaminophen (PERCOCET) 5-325 mg per tablet 1 tablet, 1 tablet, Oral, Q4H PRN, Jean Farley MD, 1 tablet at 11/20/20 1827 pantoprazole (PROTONIX) EC tablet 40 mg, 40 mg, Oral, Daily, Chuyita Arias MD, 40 mg at 11/20/20 0928 sodium chloride (PF) (NS) flush 10 mL, 10 mL, Intracatheter, Q8H SANCHO, Palak Arora MD, 10mL at 11/20/20 1356 sodium chloride (PF) (NS) flush 10-20 mL, 10-20 mL, Intracatheter, PRN, Palak Arora MD sodium chloride 0.9% (NS), 0-150 mL/hr, Intravenous, PRN, Tanja Whitmore, [facility],PharmD, New Bag at 11/11/20 1615 PMH/PSH/SH/ reviewed, no change : Review of Systems: All systems were reviewed no change: Medications Reviewed. Chart Reviewed. Exam Findings: Chest: Lungs clear bilaterally, no wheezing, or rales CVS: Normal S1 & S2+, Normal Rhythm Abdomen: Obese, normal symmetry, Soft/non-tender. Benign, BS+ Extremities: +Deformities, edema and deformity of the foot, with left foot with areas of fluctuancein the medial aspect of the foot and ankle noted. Patient on wound VAC. 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 Please see pictures. Justice Catheter: None IV Access: Yes I reviewed Medications. I reviewed Labs. Laboratory and Additional Data Reviewed: Laboratory 11/20/20 6:47 PM Microbiology 11/20/20 6:47 PM Radiology 11/20/20 6:47 PM XR Foot Left 3+ Views (Standard) Final Result Large ulceration overlying the dorsum of the foot. Degenerative changes. No definite bony erosion or fracture. Workstation ID: [id number] CT Abdomen Pelvis Without Contrast Final Result 1. Single bilateral punctate nonobstructing renal calculi. No evidence of an obstructive uropathy. 2. Moderate-large amount of retained stool in the proximal colon and qsqgw-vr-lvsuqjrl amount of retained stool in the distal colon, which could be related to a mild colonic ileus. No evidence of a bowel obstruction. 3. Mild pelvic and inguinal lymphadenopathy that may be reactive. 4. Questionable sludge or gallstones in the gallbladder. No evidence of cholecystitis. 5. Trace pleural effusions and mild atelectasis in both lung bases. DSS/ges Workstation ID: [id number] Segmental Doppler Lower Extremity Arterial Final Result NM Gastric Emptying Final Result Delayed gastric emptying. Workstation ID: [id number] MR Foot Left With And Without Contrast Final Result 1. Abnormal appearance of the midfoot particularly at the 2nd through 5th TMT joints and navicular-middle cuneiform articulations. Given the nearby dorsal skin wound, and degree of inflammation, these findings are concerning for multifocal septic arthropathy and osteomyelitis. Superimposed neuropathic arthropathy is not excluded. The talus and calcaneus appear spared. 2. Extensive cellulitis without obvious abscess. There is some nonenhancement along the midfoot concerning for tissue necrosis. 3. 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 4. No tendon tear or tenosynovitis is seen. MPH/mkv Workstation ID: [id number] MR Foot Right With And Without Contrast Final Result 1. Prior forefoot resection. Cellulitis of the surgical stump is seen associated with small ulceration. 2. No abscess. 3. No MR signs of osteomyelitis. 4. Bont-nf-aqmdzuxa mid/hindfoot osteoarthritis. 5. Remote sprains of the ATFL and deep fibers of the deltoid ligament, as above. MPH/Dizzion Workstation ID: [id number] XR Foot Left 3+ Views (Standard) Final Result No definite plain film evidence of osteomyelitis in the right or left foot Workstation ID: [id number] XR Foot Right 3+ Views (Standard) Final Result No definite plain film evidence of osteomyelitis in the right or left foot Workstation ID: [id number] XR Comparison Import Final Result CT Comparison Import Final Result XR Chest 1 View Final Result Shallow lungs with right basilar opacity, could be atelectasis or pneumonia Workstation ID: [id number] Medications 11/20/20 6:47 PM Lab Results Component Value Date WBC 7.74 11/20/2020 HGB 9.9 (L) 11/20/2020 HCT 32.9 (L) 11/20/2020 MCV 85.0 11/20/2020 PLT 512 (H) 11/20/2020 Lab Results Component Value Date GLUCOSE 151 (H) 11/20/2020 CALCIUM 8.6 11/20/2020 NA 135 11/20/2020 K 3.7 11/20/2020 CL 103 11/20/2020 BUN 13 11/20/2020 CREATININE 1.02 11/20/2020 Problem List Items Addressed This Visit Endocrine * (Principal) Secondary DM with DKA ([facility]) Relevant Medications insulin glargine (LANTUS) 100 unit/mL injection insulin glargine (LANTUS) 100 unit/mL injection insulin aspart U-100 (NovoLOG) 100 unit/mL injection insulin lispro (HumaLOG) injection 0-15 Units insulin lispro (HumaLOG) injection 0-30 Units insulin lispro (HumaLOG) injection 0-30 Units insulin glargine (LANTUS) injection 25 Units insulin lispro (HumaLOG) injection 0-30 Units (Start on 11/21/2020 7:30 AM) insulin glargine (LANTUS) 100 unit/mL injection insulin lispro (HumaLOG) 100 unit/mL injection insulin lispro (HumaLOG) 100 unit/mL injection Type 2 diabetes mellitus with retinopathy of both eyes, with long-term current use of insulin ([facility]) Relevant Medications insulin glargine (LANTUS) 100 unit/mL injection insulin glargine (LANTUS) 100 unit/mL injection insulin aspart U-100 (NovoLOG) 100 unit/mL injection insulin lispro (HumaLOG) injection 0-15 Units insulin lispro (HumaLOG) injection 0-30 Units insulin lispro (HumaLOG) injection 0-30 Units insulin glargine (LANTUS) injection 25 Units insulin lispro (HumaLOG) injection 0-30 Units (Start on 11/21/2020 7:30 AM) insulin glargine (LANTUS) 100 unit/mL injection insulin lispro (HumaLOG) 100 unit/mL injection insulin lispro (HumaLOG) 100 unit/mL injection Other Relevant Orders Ambulatory referral to Home Health Other Visit Diagnoses Other acute osteomyelitis of left foot (HCC) - Primary Relevant Medications ceFAZolin (ANCEF) IVPB 2 g (premix) ceFAZolin 2,000 mg IV (Outpatient Therapy) Other Relevant Orders OPAT Home Care Labs and Line Removal Ambulatory referral to Home Health Uncontrolled type 2 diabetes mellitus with peripheral neuropathy (HCC) Relevant Medications insulin glargine (LANTUS) 100 unit/mL injection insulin glargine (LANTUS) 100 unit/mL injection insulin aspart U-100 (NovoLOG) 100 unit/mL injection insulin lispro (HumaLOG) injection 0-15 Units insulin lispro (HumaLOG) injection 0-30 Units insulin lispro (HumaLOG) injection 0-30 Units insulin glargine (LANTUS) injection 25 Units insulin lispro (HumaLOG) injection 0-30 Units (Start on 11/21/2020 7:30 AM) insulin glargine (LANTUS) 100 unit/mL injection insulin lispro (HumaLOG) 100 unit/mL injection insulin lispro (HumaLOG) 100 unit/mL injection I discussed my management plans with Patient/and or Family member, and also discussed antibiotics therapy including side effects with Patient/and or Family member. Medical Decision Making: Moderate This note is created with the assistance of a speech-recognition program. While intending to generate a document that actually reflects the content of the visit, the document can still have some errors including those of syntax and sound a- like substitutions which may escape proofreading. In such instances, actual meaning can be extrapolated by contextual derivation. * Palak Arora MD - 11/20/2020 5:49 PM EST [facility] Medicine Inpatient Follow-up 11/20/2020 Palak Arora MD [facility] Patient: More Kingsley Jr. Date of : 1965 (55 y.o.) PCP: Cheng Staples CNP ASSESSMENT/PLAN: More Kingsley is a 54 y.o. male is known for hypertension there is mellitus hyperlipidemia chronic kidney disease stage III with creatinine baseline is 1.3 and GFR 40 to 45% presumed diabetic nephropathy, is here due to swelling and pain in the left for this for the past 2 to 3 days, has also ulceron the right foot, reported feeling fatigue loss of appetite headaches, denies fevers or chills wasevaluated emergency department blood glucose elevated close to 400, elevated lactic acid and ketones, leukocytosis and acute kidney injury his creatinine is 1.8, tachycardia with frequent PVCs IMP -sepsis due to Left foot cellulitis and osteomyelitis -Acute kidney injury prerenal azotemia and infection related -Recurrent PVCs and often noticed bigeminy -Hypokalemia and hypophosphatemia -Lactic acidosis and mild ketosis 11/19 Sepsis Left foot cellulitis and osteomyelitis with MSSA Sepsis resolved on IV cefazolin, will check with ID plan for dc CRP 132 down from 468 Pod#1 s/p debridement and application of wound vac Acute kidney injury prerenal azotemia - resolved Type II DM adequate glycemic control Endo on board Currently on lantus 25u HS, and 1:4 CHO ratio. -Recurrent PVCs and often noticed bigeminy- stable -Hypokalemia - resolved -Lactic acidosis and mild ketosis- resolved - possible dc in the coming 24 hours 11/20 Patient doing well No fever Minimal 3/10 pain Discussed with podiatry, 2/2 high output of the wound vac, he will need to stay one more day for the wound vac to be replaced in am. Patient agreeable Will need cefazolin 4 weeks picc line placed SUBJECTIVE: Mild pain left foot No fever All other systems reviewed and negative other than noted above. OBJECTIVE: Physical Examination: BP 116/76 (BP Location: Left arm, Patient Position: Lying) Pulse 94 Temp 98.3 F (36.8 C) (Oral) Resp 17 Ht 5' 10 Wt 105 kg (231 lb 7.7 oz) SpO2 93% BMI 33.21 kg/m General Appearance: Alert, well appearing, and in no acute distress. HEENT: Head - Normocephalic, atraumatic. Eyes - JADE bilaterally and EOMI. Ears - normal external appearance, hearing intact. Nose - normal, no erythema. Throat - mucous membranes moist, pharynx without lesions. Neck: Supple, trachea midline. Cardiovascular: S1, S2 normal. No murmurs, rubs, clicks or gallops appreciated. No pedal edema. Respiratory: Lungs clear to auscultation, no wheezes, rales or rhonchi heard. Abdomen: Soft, non-tender, normal bowel sounds, non-distended, no masses or organomegaly appreciated. Neurological: Grossly normal motor and sensory exam. No focal deficits. Musculoskeletal: No joint tenderness, deformity or swelling. Skin: surgical dressing and wound vac in place left foot. CURRENT MEDICATIONS: ceFAZolin (ANCEF) IVPB 2,000 mg Intravenous Q8H heparin (porcine) 5,000 Units Subcutaneous Q8H SANCHO insulin glargine 25 Units Subcutaneous Nightly lispro insulin 0-15 Units Subcutaneous at bedtime insulin lispro 0-30 Units Subcutaneous Daily before lunch insulin lispro 0-30 Units Subcutaneous Before dinner [START ON 11/21/2020] insulin lispro 0-30 Units Subcutaneous QAM AC pantoprazole 40 mg Oral Daily sodium chloride (PF) 10 mL Intracatheter Q8H SANCHO Results/Medications Reviewed 11/20/20 5:49 PM: Results from last 7 days Lab Units 11/20/20 0247 11/19/20 0424 11/18/20 0523 SODIUM mmol/L 135 136 137 POTASSIUM mmol/L 3.7 3.8 3.8 CHLORIDE mmol/L 103 103 104 BUN mg/dL 13 12 12 CREATININE mg/dL 1.02 0.92 0.99 GLUCOSE mg/dL 151* 132* 136* CALCIUM mg/dL 8.6 8.8 8.7 Results from last 7 days Lab Units 11/20/20 0247 11/19/20 0424 11/18/20 0523 WBC K/mcL 7.74 10.04 8.56 HGB g/dL 9.9* 10.2* 10.9* HCT % 32.9* 33.2* 36.5* PLT K/mcL 512* 596* 581* Results from last 7 days Lab Units 11/17/20 1802 PTT seconds 32 Invalid input(s): LABALBU CULTURES: Reviewed 5:49 PM IMAGING: Reviewed 5:49 PM * Nela Herbert OTA - 11/20/2020 3:40 PM EST Occupational Therapy OCCUPATIONAL THERAPY TREATMENT NOTE Skilled Therapy Needs After Discharge Are Skilled Therapy Services Needed After Discharge: No DME Recommendation: Tub transfer bench(Toilet Riser w/Rails Attached) DME Rationale: Equipment required to maintain weight bearing status per physician orders, Patient'scondition creates an increased risk of safety hazard without recommended equipment Rehab Potential: Good Outcomes Measures Prior Function Daily Activity: Raw Score: 24 Prior Function Daily Activity % Impaired: 0% functionally impaired AM-PAC Daily Activity: Raw Score: 20 AM-PAC Daily Activity % Impaired: 38.32% functionally impaired Activity Tolerance Fair Therapy Precautions Orthotic Devices: No Weight Bearing Status: X RLE: (heel WB'ing only) LLE: Non Wt bearing General Rehab Precautions: Fall risk Cognition Overall Cognitive Status: Within Functional Limits Arousal/Alertness: Appropriate responses to stimuli Orientation Level: Oriented X4 Executive functioning: WFL Safety Judgment: Decreased awareness of need for safety Problem Solving: Assistance required to identify errors made Attention: Attends to quiet environment Hearing Status: WFL Social Interaction: Cooperative, Appropriate Skilled Intervention: Pt followed all commands during session Bed Mobility Rolling: Independent Supine to Sit: Modified independence(HOB elevated and use of bed rail) Sit to Supine: Modified Sumner(HOB elevated) Skilled Intervention: Pt seated EOB ~11 minutes with Supervision. No LOB noted. Exercise Seated Exercises: Pt participated in BUE strength exercises while seated EOB to increase core strength, balance, activity tolerance, and UE strength for ADLs and functional transfers/mobility. Pt followed UE theraband HEP handout completing 5 motions x20 reps using mod resistance theraband. Pt benefited from min verbal cues for proper technique to increase effectiveness. Home Living Type of Home: House Home Layout: One level, Stairs to enter with rails Bathroom Shower/Tub: Tub/shower unit Bathroom Toilet: Standard(Low toilet per pt.) Home Equipment: (Crutches) Additional Comments: Pt prefers to be called Carlitos . Prior Level of Function Level of Sumner: Independent with ADLs and functional transfers Lives With: Alone ADL Assistance: Independent Homemaking Assistance: Independent Vocational: On disability Comments: Independent w/ambulation without a device, but balance impaired per pt. For complete objective data, detailed plan of care and patient education refer to: OT EVALUATION flow sheet, OT TREATMENT flow sheet, patient Plan of Care, Plan of Care progress note, and Patient Education. This note stands as the current Discharge Summary upon patient discharge from the hospital or completion of Occupational Therapy Plan of Care. * Otto Viniciomilo Wynn - 11/20/2020 2:52 PM EST DISCHARGE PLAN PROGRESS NOTE Date: 11/20/2020 Time: 2:52 PM Patient Name: More Kingsley Jr. Date of : 1965 Sex: Male This discharge coordinator received call back from [facility], agency able to accept patient and start care on WednesdayNovember 22. Joan sr. social media & mobile manager updated. Abdoulaye Menjivar [facility] Disposition Regulatory Documentation: Medicare IM Regulatory Documentation Status: Signed Signed: Self * Joan Trejo LISW - 11/20/2020 10:35 AM EST DISCHARGE PLAN PROGRESS NOTE Date: 11/20/2020 Time: 10:35 AM Patient Name: More Kingsley Jr. Date of : 1965 Sex: Male [place] contacted this worker. Patient has medicare part D and is in the Gap coverage. Meds will be $1.30 per week. Supplies are $15 a day. Depending on what home care patient is arranged with, supplies may be able to be bundled billed. [employer] are working on trying to establish a home health provider. 1304- Podiatry would like to postpone discharge due to amount of wound vac drainage. [facility] Disposition Regulatory Documentation: Medicare IM Regulatory Documentation Status: Signed Signed: Self * Marvel Mcmillan MD - 11/20/2020 9:55 AM EST Patient ID: Patient Name: More Kingsley Jr. Admit Date: 11/05/2020 MR #: [id number] : 1965 Current location: [facility] [place] Physicians: Cheng Staples CNP (Family); Dr. Pinedo (Referring) Reason for consult: Type 2 diabetes out of control Assessment/Plan: Dx: Type 2 diabetes, under poor control Currently taking as outpatient: Metformin 1000 mg twice daily Humalog insulin: 1:3 units at breakfast; 1:3 units at lunch; 1:3 units at supper Lantus insulin: 38 units at breakfast; 36 units at bedtime Current Hemoglobin A1C= Lab Results Component Value Date HGBA1C 8.2 (H) 11/05/2020 NOTES: BG and labs reviewed since admission. Patient reports taking QID insulin as an outpatient. Admitted with bilateral foot wounds and cellulitis. 11/07 BG and labs reviewed. WBC 12.03, Hgb 11.2, Hct 35.6 Plt 282k. 11/08: BG and labs reviewed. Patient's BG ranging from 107-221 over last 24 hours. Currently on lantus 35 units BID and humalog 1:3 TID with meals. Na: 135; K: 3.4; Creat: 0.98; eGFR: 88; Ca: 7.8; CBC: WBC: 12.03; Hgb: 11.2; Hct: 35.6; Plt: 282. Patient reports No complaints. 11/09: BG and labs reviewed over the past 24 hours. Current insulin doses include Lantus 35u BID, and Humalog 1:3 CHO ratio at meals, + sliding scale insulin with meals. MRI of the foot, with Extensive cellulitis, and concern for septic arthroplathy and osteomyelitis of the left foot. He cont. To be followed by ID, Dr Bell. The patient is wearing a wound VAC. 11/11: BG and labs reviewed. Insulin adjusted over the weekend secondary to hypoglycemia. Currentlyreceiving Lantus 25 units nightly, Humalog 4u TID premeal. He is returning to the OR today for further I&D of wound, therefore is NPO. He states his appetite has been somewhat poor. 11/12: BG and labs reviewed. Patient is currently getting Lantus 22u HS, and Humalog 1:4 CHO ratiosat meals. He continues on IV antibiotics and has a wound VAC to his left lower extremity. 11/13 BG and labs reviewed. Na 15, K 4.0, eGFR 99, creat 0.85, WBC 10.51, Hgb 10.1, Hct 32.7, Plt 545k. Patient not in room. 11/14: BG and labs reviewed, continue to be stable. Gastric emptying study performed yesterday revealed delayed gastric emptying, positive for gastroparesis. Patient wanting further education on dietmanagement for this. Otherwise no concerns or complaints. 11/18: BG and labs reviewed. Patient is currently on lantus 25u HS, and 1:4 CHO ratio. He is awaiting OR today for wound debridement, of new left ankle abcess. wound VAC was removed by Dr Conte, because the white cell count was trending upward and patient was feeling increased pain on the medial ankle. When it was removed there was copious amounts of pus coming from the dorsal foot wound seem to be originating from the medial ankle. 11/19: BG reviewed over the past 24hours. Patient is s/p INCISION AND DRAINAGE FOOT/ANKLE with Application of Wound Vac, by Dr Cherry 11/18/2020. He is currently getting Lantus 25u HS and 1:4 CHO ratio at meals. 11/20 BG and labs reviewed. Sodium 135, potassium 3.7, CO2 28, glucose 151, creatinine 1.02, estimated GFR 83, WBC 7.74, hemoglobin 9.9, hematocrit 32.9, platelet count 512,000. Patient receiving 25 units Lantus q HS and insulin 4 with meals. Discharge today. Blood Glucoses: 11/05: ___---___---___---309 11/06: 303---346---301---327 11/07 209---206---221---205---178 11/08: 107---109---98---105 11/09: 61----96-----88 ---82----112 11/10: 167---151---137---136 11/11: 115---106---86---104 11/12: 71---153---161---159 11/13 162---221---186---189 11/14 138--- 11/15: 11/16: 11/17: 94---148---132----192 11/18: 154---133---111---175 11/19: 127---166---180---174 11/20 177 Plan: 1. Rx changes: Adjust insulin doses. Humalog insulin: 1:3 units at breakfast; 1:3 units at lunch; 1:3 units at supper Lantus insulin: 25 units at breakfast; 25 units at bedtime Hold metformin. 11/07 Increase Lantus to 35 units BID and continue Humalog 1:3 ins:CHO ratio. Left foot with osteomyelitis on MRI. 11/08: CPM. 11/09: Lantus 32u HS, cont. 35u AM, and cont. 1:3 CHO ratios at meals. 11/11: Decrease Lantus 22 units nightly, continue Humalog 1:4 units TID with meals 11/12: CPM 11/13 CPM 11/14: Continue current insulin doses. Consult health facilities surveyor for gastroparesis diet education. 11/18: CPM 11/19: CPM 11/20 Discharge on 5 H TID ac and 25 Lantus, plus SSI. Can restart metformin 1000 mg BID. [facility]. Education: Reviewed ABCs of diabetes management (respective goals in parentheses): A1C (7.0-8.0), blood pressure (<130/80), and cholesterol (LDL <100). Referral to Diabetes Education Referral to Nutrition therapy Subjective: 11/19: Patient resting quietly in bed. He has no new issues. Brief HPI: Mr. Kingsley is a 54 year old male with a past medical history of type 2 DM, HTN, hyperlipidemia who presented for evaluation of left lower extremity cellulitis swelling and pain along with lesions to right foot. Patient reports no chest pain. Occasional SOB. No blurred or double vision. Nofever or chills. Patient reports occasional nausea. Patient's labs reviewed with creat 1.82, K: 3.3, Glucose 309. Patient has had diabetes for 18 years. Diagnosed in 2001. Patient is currently taking Humalog insulin: 1:3 units at breakfast; 1:3 units at lunch; 1:3 units at supper Lantus insulin: 38 units at breakfast; 36 units at bedtime along with metformin 1000 mg BID as an out patient. Patient has taken Insulin for 12-14 years. Currently the patient is receiving no insulinat this time. Blood sugar levels since admission have been ranging from 303-309 mg/dL. Current monitoring regimen: home blood tests - 1-4 times daily Complications of diabetes include: Retinopathy: Positive: Proliferative diabetic retinopathy and Intraocular injection Nephropathy: Positive Peripheral Neuropathy: Positive Autonomic Neuropathy: Negative Allergies: No Known Allergies Home Medications: Outpatient Medications Marked as Taking for the 11/05/20 encounter (Hospital Encounter): insulin aspart U-100 (NovoLOG) 100 unit/mL injection, Inject under the skin 3 (three) times a day before meals Sliding scale, patient unsure of doses. . insulin glargine (LANTUS) 100 unit/mL injection, Inject 38 Units under the skin daily AM . insulin glargine (LANTUS) 100 unit/mL injection, Inject 32 Units under the skin nightly HS . metFORMIN (GLUCOPHAGE) 1000 MG tablet, Take 1,000 mg by mouth 2 (two) times a day with meals . Current Medications: ceFAZolin (ANCEF) IVPB 2,000 mg Intravenous Q8H heparin (porcine) 5,000 Units Subcutaneous Q8H SANCHO insulin glargine 25 Units Subcutaneous Nightly lispro insulin 0-15 Units Subcutaneous at bedtime insulin lispro 0-30 Units Subcutaneous QAM AC insulin lispro 0-30 Units Subcutaneous Daily before lunch insulin lispro 0-30 Units Subcutaneous Before dinner pantoprazole 40 mg Oral Daily sodium chloride (PF) 10 mL Intracatheter Q8H SANCHO acetaminophen, alteplase, sodium chloride (PF) AND sodium chloride (PF) AND gadoterate meglumine, ipratropium-albuteroL, lidocaine 1%, nalOXone AND Notify physician AND naloxone, ondansetron, oxyCODONE-acetaminophen, sodium chloride (PF), sodium chloride 0.9 % Review of Systems: Review of Systems Constitutional: Positive for appetite change and fatigue. Negative for unexpected weight change. Eyes: Negative for visual disturbance. Respiratory: Negative for cough and shortness of breath. Cardiovascular: Negative for chest pain and leg swelling. Gastrointestinal: Positive for nausea. Negative for abdominal pain, constipation, diarrhea and vomiting. Endocrine: Negative for polydipsia, polyphagia and polyuria. Genitourinary: Negative for frequency and urgency. Musculoskeletal: Positive for arthralgias and joint swelling. Skin: Positive for rash (redness and swelling to LLE) and wound (multiple wounds to foot). Neurological: Negative for numbness and headaches. Psychiatric/Behavioral: Negative for agitation and sleep disturbance. The patient is not nervous/anxious. History: Past Medical History: Diagnosis Date Diabetes mellitus, type 2 (HCC) Diabetic nephropathy (HCC) Diabetic neuropathy (HCC) Diabetic retinopathy (HCC) Hyperlipidemia Hypertension Nausea and vomiting Nephropathy Past Surgical History: Procedure Laterality Date AMPUTATION FOOT Left forefoot DEBRIDEMENT AND DRESSING CHANGE Left 11/11/2020 Procedure: DEBRIDEMENT AND DRESSING CHANGE; Surgeon: Leanne Cherry DPM; Location: Main OR; Service: Podiatry HAND SURGERY Left INCISION AND DRAINAGE FOOT AND ANKLE Left 11/18/2020 Procedure: INCISION AND DRAINAGE FOOT/ANKLE with Application of Wound Vac; Surgeon: Leanne Cherry DPM; Location: Main OR; Service: Podiatry WOUND VAC Left 11/11/2020 Procedure: APPLICATION WOUND VAC; Surgeon: Leanne Cherry DPM; Location: Main OR; Service: Podiatry Family History Problem Relation Age of Onset Diabetes Mother Diabetes Father Heart disease Father Diabetes Brother Social History Tobacco Use Smoking status: Never Smoker Smokeless tobacco: Never Used Substance Use Topics Alcohol use: Yes Comment: rarely Drug use: Never The following portions of the patient's history were reviewed and updated as appropriate: allergies, current medications, past family history, past medical history, past social history, past surgicalhistory and problem list. Objective: BP 124/81 (BP Location: Left arm, Patient Position: Lying) Pulse (!) 101 Temp 98.2 F (36.8 C) (Oral) Resp 16 Ht 5' 10 Wt 105 kg (231 lb 7.7 oz) SpO2 94% BMI 33.21 kg/m Wt Readings from Last 3 Encounters: 11/18/20 105 kg (231 lb 7.7 oz) 11/06/20 104.3 kg (230 lb) 11/05/20 105 kg (231 lb 7.7 oz) Physical Exam: Physical Exam Constitutional: He is oriented to person, place, and time. He appears well- developed and well-nourished. HENT: Head: Normocephalic and atraumatic. Eyes: Pupils are equal, round, and reactive to light. Conjunctivae are normal. Neck: Normal range of motion. Neck supple. No thyromegaly present. Cardiovascular: Normal rate, regular rhythm, normal heart sounds and intact distal pulses. No murmur heard. Pulmonary/Chest: Effort normal and breath sounds normal. Abdominal: Soft. Musculoskeletal: Normal range of motion. General: Deformity (left foot) and edema present. Neurological: He is alert and oriented to person, place, and time. Skin: Skin is warm and dry. There is erythema. Redness and swelling to left lower extremity Right foot status post forefoot amputation along with multiple lesions in various phases of healing. Ulcer with packing in place right foot. Left foot Wound VAC in place. Psychiatric: He has a normal mood and affect. His behavior is normal. Judgment and thought content normal. Laboratory Review: BP 124/81 (BP Location: Left arm, Patient Position: Lying) Pulse (!) 101 Temp 98.2 F (36.8 C) (Oral) Resp 16 Ht 5' 10 Wt 105 kg (231 lb 7.7 oz) SpO2 94% BMI 33.21 kg/m Lab Results Component Value Date HGBA1C 8.2 (H) 11/05/2020 Glucose (mg/dL) Date Value 11/20/2020 151 (H) Creatinine (mg/dL) Date Value 11/20/2020 1.02 No results found for: CHOL, TRIG, HDL, LDLCALC, LDL Lab Results Component Value Date TSH 0.80 11/06/2020 No results found for: FREET4 Lab Results Component Value Date WBC 7.74 11/20/2020 HGB 9.9 (L) 11/20/2020 HCT 32.9 (L) 11/20/2020 MCV 85.0 11/20/2020 PLT 512 (H) 11/20/2020 This SmartLink has not been configured with any valid records. This SmartLink has not been configured with any valid records. Laboratory and Additional Data Reviewed: Laboratory 11/20/20 9:56 AM Medications 11/20/20 9:56 AM Transcriptions 11/20/20 9:56 AM Thank you for this consultation, we will continue to follow this patient with you. * Ryan Conte DPM - 11/20/2020 9:29 AM EST Assessment: (Patient is a pleasant 55-year-old type II diabetic male with left foot abscess concern for underlying midfoot osteomyelitis now status post incision and drainage left foot, 11-18-[address] Angela Cherry. ). Plan: (-Patient is improving with wound VAC therapy. -still draining, resevoir is 1/4th full with bloody drainage -Sed Rate and ESR are increasing -WBC is trending down - Discussed with Dr. Bell, pt may need medial I&D of the left foot -Erythema to the foot additionally has improved -Bone bx revealed acute osteomyelitis -Possible discharge today per pt, pt to go home or ECF with IV ATB. Pt does live in [place], is willing to follow up in wound care. -Wound Vac is to be on at discharge as home Vac -Vac was not changed today, if still in hospital tomorrow will need changed. ). Subjective no overnight events, states he slept well and is doing okay. Temp: [97.8 F (36.6 C)-98.4 F (36.9 C)] 98.2 F (36.8 C) Heart Rate: [91-101] 101 Resp: [12-16] 16 BP: (120-150)/(79-93) 124/81 I/O last 3 completed shifts: In: 2649.9 [I.V.:2399.9; IV Piggyback:250] Out: 1650 [Urine:1650] No intake/output data recorded. Objective Vascular: DP/PT pulses are palpable +1/4 b/l. Mild lower extremity edema appreciated. Derm: Left foot erythema has improved with much less tenseness. Wound VAC remains intact at 125 mmHg continuously black foam. Neuro: sharp dull is blunted. Protective sensation is diminished. Musk: Muscle strength to the lower extremity is 5/5 without any brooke deformities. No fluctuance orcrepitation present. Principal Problem: Secondary DM with DKA ([facility]) Active Problems: Type 2 diabetes mellitus with retinopathy of both eyes, with long-term current use of insulin ([facility]) * Marcella Bell MD - 11/19/2020 5:20 PM EST Patient Name: More Kingsley Jr. Admit Date: MR #: [id number] : 1965 Physicians: Cheng Staples CNP (Family); No ref. provider found (Referring) Assessment: Patient with 1. Left foot abscess, with MSSA 2. Osteomyelitis with MSSA 3. Uncontrolled diabetes. 4. Abdominal pain. 5. Constipation. Plan. Continue patient on current therapyn. Continue patient on IV cefazolin. I reviewed labs, including cultures, with MSSA, and be strep. I appreciate content production specialist evaluation. Patient needs incision and drainage of left foot abscess Dressing according to content production specialist recommendation Endocrinology evaluation for adequate blood sugar control We will continue to follow with you. Not on wound VAC dressing. Status post debridement. Reviewed bone cultures with MSSA. I reviewed labs. I reviewed CT scan of the abdomen and pelvis, with moderate large amount of retained stool in the proximal colon. Status post incision and drainage of the left ankle foot. Follow-up cultures, bone culture with no growth. Subjective: Patient was reevaluated again, with no new symptoms, no fever, no chills, patient improving had status post incision and drainage of left ankle, patient on wound VAC. Exam: PACU Vitals 11/19/20 1530 BP: 124/82 Pulse: 96 Resp: 12 Temp: 98.4 F (36.9 C) SpO2: 94% Allergies: Patient has no known allergies. Current Facility-Administered Medications: acetaminophen (TYLENOL) tablet 650 mg, 650 mg, Oral, Q6H PRN, Jennifer Gamble CNP, 650 mg at 11/11/20 2343 alteplase (CATH BERTHA) injection 2 mg, 2 mg, Other, PRN, Palak Arora MD ceFAZolin (ANCEF) IVPB 2 g (premix), 2,000 mg, Intravenous, Q8H, Mady Russell CNP, Last Rate: 100 mL/hr at 11/19/20 1515, 2,000 mg at 11/19/20 1515 sodium chloride (PF) (NS) 0.9 % contrast line flush 10 mL, 10 mL, Intravenous, Once in imaging AND sodium chloride (PF) (NS) 0.9 % contrast line flush 10 mL, 10 mL, Intravenous, Once in imaging AND gadoterate meglumine (DOTAREM) injection 20 mL, 20 mL, Intravenous, Once in imaging, Bethanie Pinedo MD heparin (porcine) injection 5,000 Units, 5,000 Units, Subcutaneous, Q8H SANCHO, Chuyita Arias MD, 5,000 Units at 11/19/20 1517 insulin glargine (LANTUS) injection 25 Units, 25 Units, Subcutaneous, Nightly, Chuyita Arias MD, 25 Units at 11/18/20 2151 insulin lispro (HumaLOG) injection 0-15 Units, 0-15 Units, Subcutaneous, at bedtime, Jack Hair CNP, 2 Units at 11/06/20 2105 insulin lispro (HumaLOG) injection 0-30 Units, 0-30 Units, Subcutaneous, QAM AC, Marvel Mcmillan MD, 0 Units at 11/16/20 0940 insulin lispro (HumaLOG) injection 0-30 Units, 0-30 Units, Subcutaneous, Daily before lunch, Marvel Mcmillan MD, 6 Units at 11/19/20 1130 insulin lispro (HumaLOG) injection 0-30 Units, 0-30 Units, Subcutaneous, Before dinner, Marvel Calero MD, 6 Units at 11/19/20 1648 ipratropium-albuteroL (DUO-NEB) 0.5-2.5 mg/3 ml nebulizer solution 3 mL, 3 mL, Inhalation, Q2H PRN,Flako Pinedo MD lidocaine 10 mg/mL (1 %) injection 1 mL, 1 mL, Intradermal, Once PRN, Palak Arora MD naloxone (NARCAN) injection 0.1 mg, 0.1 mg, Intravenous, PRN AND Notify physician, , , Until Discontinued AND naloxone (NARCAN) injection 0.4 mg, 0.4 mg, Intravenous, PRN, Jean Farley MD ondansetron (ZOFRAN) injection 4 mg, 4 mg, Intravenous, Q6H PRN, Flako Pinedo MD, 4 mg at 11/11/202050 oxyCODONE-acetaminophen (PERCOCET) 5-325 mg per tablet 1 tablet, 1 tablet, Oral, Q4H PRN, Jean Farley MD, 1 tablet at 11/19/20 0814 pantoprazole (PROTONIX) EC tablet 40 mg, 40 mg, Oral, Daily, Chuyita Arias MD, 40 mg at 11/19/20 0813 sodium chloride (PF) (NS) flush 10 mL, 10 mL, Intracatheter, Q8H SANCHO, Palak Arora MD, 10mL at 11/19/20 1518 sodium chloride (PF) (NS) flush 10-20 mL, 10-20 mL, Intracatheter, PRN, Palak Arroa MD sodium chloride 0.9% (NS), 0-150 mL/hr, Intravenous, PRN, Tanja Whitmore, [facility],PharmD, New Bag at 11/11/20 1615 PMH/PSH/SH/ reviewed, no change : Review of Systems: All systems were reviewed no change: Medications Reviewed. Chart Reviewed. Exam Findings: Chest: Lungs clear bilaterally, no wheezing, or rales CVS: Normal S1 & S2+, Normal Rhythm Abdomen: Obese, normal symmetry, Soft/non-tender. Benign, BS+ Extremities: +Deformities, edema and deformity of the foot, with left foot with areas of fluctuancein the medial aspect of the foot and ankle noted. Patient on wound VAC. 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 Please see pictures. Justice Catheter: None IV Access: Yes I reviewed Medications. I reviewed Labs. Laboratory and Additional Data Reviewed: Laboratory 11/19/20 5:20 PM Microbiology 11/19/20 5:20 PM Radiology 11/19/20 5:20 PM XR Foot Left 3+ Views (Standard) Final Result Large ulceration overlying the dorsum of the foot. Degenerative changes. No definite bony erosion or fracture. Workstation ID: [id number] CT Abdomen Pelvis Without Contrast Final Result 1. Single bilateral punctate nonobstructing renal calculi. No evidence of an obstructive uropathy. 2. Moderate-large amount of retained stool in the proximal colon and pxsyr-hm-odegjhho amount of retained stool in the distal colon, which could be related to a mild colonic ileus. No evidence of a bowel obstruction. 3. Mild pelvic and inguinal lymphadenopathy that may be reactive. 4. Questionable sludge or gallstones in the gallbladder. No evidence of cholecystitis. 5. Trace pleural effusions and mild atelectasis in both lung bases. DSS/ges Workstation ID: [id number] Segmental Doppler Lower Extremity Arterial Final Result NM Gastric Emptying Final Result Delayed gastric emptying. Workstation ID: [id number] MR Foot Left With And Without Contrast Final Result 1. Abnormal appearance of the midfoot particularly at the 2nd through 5th TMT joints and navicular-middle cuneiform articulations. Given the nearby dorsal skin wound, and degree of inflammation, these findings are concerning for multifocal septic arthropathy and osteomyelitis. Superimposed neuropathic arthropathy is not excluded. The talus and calcaneus appear spared. 2. Extensive cellulitis without obvious abscess. There is some nonenhancement along the midfoot concerning for tissue necrosis. 3. 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 4. No tendon tear or tenosynovitis is seen. MPH/ThisNextv Workstation ID: [id number] MR Foot Right With And Without Contrast Final Result 1. Prior forefoot resection. Cellulitis of the surgical stump is seen associated with small ulceration. 2. No abscess. 3. No MR signs of osteomyelitis. 4. Qkqb-nm-abwrxgid mid/hindfoot osteoarthritis. 5. Remote sprains of the ATFL and deep fibers of the deltoid ligament, as above. MPH/Dizzion Workstation ID: [id number] XR Foot Left 3+ Views (Standard) Final Result No definite plain film evidence of osteomyelitis in the right or left foot Workstation ID: [id number] XR Foot Right 3+ Views (Standard) Final Result No definite plain film evidence of osteomyelitis in the right or left foot Workstation ID: [id number] XR Comparison Import Final Result CT Comparison Import Final Result XR Chest 1 View Final Result Shallow lungs with right basilar opacity, could be atelectasis or pneumonia Workstation ID: [id number] Medications 11/19/20 5:20 PM Lab Results Component Value Date WBC 10.04 11/19/2020 HGB 10.2 (L) 11/19/2020 HCT 33.2 (L) 11/19/2020 MCV 83.0 11/19/2020 PLT 596 (H) 11/19/2020 Lab Results Component Value Date GLUCOSE 132 (H) 11/19/2020 CALCIUM 8.8 11/19/2020 NA 136 11/19/2020 K 3.8 11/19/2020 CL 103 11/19/2020 BUN 12 11/19/2020 CREATININE 0.92 11/19/2020 Problem List Items Addressed This Visit Endocrine * (Principal) Secondary DM with DKA (HCC) Relevant Medications insulin glargine (LANTUS) 100 unit/mL injection insulin glargine (LANTUS) 100 unit/mL injection insulin aspart U-100 (NovoLOG) 100 unit/mL injection insulin lispro (HumaLOG) injection 0-15 Units insulin lispro (HumaLOG) injection 0-30 Units insulin lispro (HumaLOG) injection 0-30 Units insulin lispro (HumaLOG) injection 0-30 Units insulin glargine (LANTUS) injection 25 Units Other Visit Diagnoses Other acute osteomyelitis of left foot (HCC) - Primary Relevant Medications ceFAZolin (ANCEF) IVPB 2 g (premix) ceFAZolin 2,000 mg IV (Outpatient Therapy) Other Relevant Orders OPAT Home Care Labs and Line Removal Uncontrolled type 2 diabetes mellitus with peripheral neuropathy (HCC) Relevant Medications insulin glargine (LANTUS) 100 unit/mL injection insulin glargine (LANTUS) 100 unit/mL injection insulin aspart U-100 (NovoLOG) 100 unit/mL injection insulin lispro (HumaLOG) injection 0-15 Units insulin lispro (HumaLOG) injection 0-30 Units insulin lispro (HumaLOG) injection 0-30 Units insulin lispro (HumaLOG) injection 0-30 Units insulin glargine (LANTUS) injection 25 Units I discussed my management plans with Patient/and or Family member, and also discussed antibiotics therapy including side effects with Patient/and or Family member. Medical Decision Making: Moderate This note is created with the assistance of a speech-recognition program. While intending to generate a document that actually reflects the content of the visit, the document can still have some errors including those of syntax and sound a- like substitutions which may escape proofreading. In such instances, actual meaning can be extrapolated by contextual derivation. * Jai Kumar Jr., DPM - 11/19/2020 3:54 PM EST Assessment: (Patient is a pleasant 55-year-old type II diabetic male with left foot abscess concern for underlying midfoot osteomyelitis now status post incision and drainage left foot, [address] Angela Cherry. ). Plan: (-Patient did improve overnight with wound VAC therapy. -Did update's ESR and CRP for tomorrow. -At this time, ESR and CRP are technically downtrending albeit slowly, white count is stable at under 10,000. -Erythema to the foot additionally has improved and bone biopsy is pending. Continue inpatient antibiotics at this time, will see on rounds tomorrow for dressing changes and wound VAC changes likely Wednesday.). Subjective no overnight events, states he slept well and is doing okay. Temp: [97.8 F (36.6 C)-99.2 F (37.3 C)] 98.4 F (36.9 C) Heart Rate: [85-114] 96 Resp: [12-16] 12 BP: (116-162)/(76-94) 124/82 I/O last 3 completed shifts: In: 3808.3 [I.V.:3400; IV Piggyback:408.3] Out: 3602 [Urine:3600; Blood:2] I/O this shift: In: 2099.9 [I.V.:2099.9] Out: - Objective Vascular: DP/PT pulses are palpable +1/4 b/l. Mild lower extremity edema appreciated. Derm: Left foot erythema has improved with much less tenseness. Wound VAC remains intact at 125 mmHg continuously black foam. Neuro: sharp dull is blunted. Protective sensation is diminished. Musk: Muscle strength to the lower extremity is 5/5 without any brooke deformities. No fluctuance orcrepitation present. Principal Problem: Secondary DM with DKA (HCC) Active Problems: Type 2 diabetes mellitus with retinopathy of both eyes, with long-term current use of insulin (HCC) * Joan Trejo LISW - 11/19/2020 3:16 PM EST This worker was advised to sent referral to [facility]. Referral faxed. Message left for Jose. * Joan Trejo LISW - 11/19/2020 2:31 PM EST Patient will need IV Cefazolin every eight hours until 12/19. He has orders for a PICC line. This worker met with patient. We discussed that his IV, wound care, and therapy needs would indicate that he needs a higher level of care than home with home care. Patient states that he has done IV antibiotics at home in the past. He does not know what pharmacy he used or if he has medicare part D. He states that medication was paid for last time. Patient was educated that home health will not be out daily to give meds, most likely will come three times a week to change wound vac. Patient would like to go home. [facility] notified to check him home infusion benefits. Care coordination following. * Scarlett German - 11/19/2020 12:12 PM EST DISCHARGE PLAN PROGRESS NOTE Date: 11/19/2020 Time: 12:12 PM Patient Name: More Kingsley Jr. Date of : 1965 Sex: Male Spoke with pt regarding [facility], #1 choice [facility] ([phone]). Spoke with Seema and faxed free text to [phone] the [facility] referral and asked for a return call as soon as possible. Pt discharged possibly tomorrow. 13:18 - Rec'd call from [facility] with [facility] and they CANNOT accept pt due to lack of staffing. Will try # 2 - [facility] ([phone]). 13:21 - Called # 2& spoke to Racquel, Free text referral to fax [phone] @ 13:26. Informed Ranjana via secure chat. 15:25 - Called [facility] and Paola said they never rec'd fax sent at 13:26. Spoke with Ranjana and she said to move on to [place] [facility] [place] 2 suggestions 1)[facility] @ [phone]. I called and they have NO staff at this time to service [facility]. Moved on to 2) [facility], ([phone]) spoke with Evette and she said I could fax the referral ([phone]) which I did at 15:42. Scarlett German * Mauricio Brunner OTA - 11/19/2020 11:30 AM EST Occupational Therapy OCCUPATIONAL THERAPY TREATMENT NOTE Pt's current OT POC is due to be updated this date. Will notify OTR/L of need to review POC and discuss continuation of unmet goals as appropriate. . Please continue UB strengthening goal along with adding additional goals for mobility. Skilled Therapy Needs After Discharge Are Skilled Therapy Services Needed After Discharge: No DME Recommendation: Tub transfer bench(Toilet Riser w/Rails Attached) DME Rationale: Equipment required to maintain weight bearing status per physician orders, Patient'scondition creates an increased risk of safety hazard without recommended equipment Rehab Potential: Good Outcomes Measures Prior Function Daily Activity: Raw Score: 24 Prior Function Daily Activity % Impaired: 0% functionally impaired AM-PAC Daily Activity: Raw Score: 20 AM-PAC Daily Activity % Impaired: 38.32% functionally impaired Activity Tolerance fair+ to good- for given tasks. Therapy Precautions Orthotic Devices: No Weight Bearing Status: X RLE: Partial Wt bearing(heel only) LLE: Non Wt bearing General Rehab Precautions: Fall risk Cognition Overall Cognitive Status: Within Functional Limits Arousal/Alertness: Appropriate responses to stimuli Orientation Level: Oriented X4 Executive functioning: WFL Safety Judgment: Decreased awareness of need for safety(not wanting to follow NWB precautions.) Problem Solving: Assistance required to identify errors made Attention: Attends to quiet environment Hearing Status: WFL Social Interaction: Appropriate, Cooperative, Verbose Skilled Intervention: Pt fully aware of what is recommended by his concerning WB through each foot but reports he is going to do what he wants at home. ADL/IADL UE Bathing : Stand by assistance LE Bathing : Stand by assistance LE Dressing: Stand by assistance Skilled Intervention: Pt able to sit EOB and bath with good dynamic sitting bal. Sit to stand to manage LB clothing or can lye back into bed to pull up pants over hips. AE education regarding recommended equip for the bathroom with pt actively listening but reports bedroom is too small to have a BSC beside the bed planning on using the urinal. Bed Mobility Rolling: Independent Supine to Sit: Modified independence(use of side rail) Sit to Supine: Independent Functional Transfers Sit to Stand: Contact guard, Min(cueing to follow WB precautions) Skilled Intervention: Static standing x1min Exercise Seated Exercises: BUE AROM HEP using resistive t-band Pt needing min cueing to properly produce desired UB movements while completing all 5 ex's on HEP handout. Pt tolerating only 5reps of B shld flexion due to increasing discomfort in RTC otherwise allother ex's completed at 10reps each. Interventions Home Living Type of Home: House Home Layout: One level, Stairs to enter with rails Bathroom Shower/Tub: Tub/shower unit Bathroom Toilet: Standard(Low toilet per pt.) Home Equipment: (Crutches) Additional Comments: Pt prefers to be called Carlitos . Prior Level of Function Level of [place]: Independent with ADLs and functional transfers Lives With: Alone ADL Assistance: Independent Homemaking Assistance: Independent Vocational: On disability Comments: Independent w/ambulation without a device, but balance impaired per pt. For complete objective data, detailed plan of care and patient education refer to: OT EVALUATION flow sheet, OT TREATMENT flow sheet, patient Plan of Care, Plan of Care progress note, and Patient Education. This note stands as the current Discharge Summary upon patient discharge from the hospital or completion of Occupational Therapy Plan of Care. Associated attestation - Racquel Ray OT - 11/20/2020 8:09 AM EST I have read and concur with OT charting by ARACELIS Lezama/Daryn and will update POC; continue to need clarification for R LE weight bearing and will contact Podiatry. * Joan Trejo LISW - 11/19/2020 10:48 AM EST DISCHARGE PLAN PROGRESS NOTE Date: 11/19/2020 Time: 10:49 AM Patient Name: More Kingsley Date of : 1965 Sex: Male This worker met with patient. He wants to return home at discharge. He feels that he is moving around well enough to be at home alone. Chart reviewed. I&D done 11/18. Wound vac replaced and home vac has been approved per wound care. IV team consulted. Physician reports that patient will need home IVs. Awaiting order from Dr. Bell. Patient refused PT today stating he is moving well on his own. Patient will be given a home carelist to choose from. Care coordination following. * Olga Wheeler CNP - 11/19/2020 9:23 AM EST Patient ID: Patient Name: More Kingsley Jr. Admit Date: 11/05/2020 MR #: [id number] : 1965 Current location: [facility] - [place] Physicians: Cheng Staples CNP (Family); Dr. Pinedo (Referring) Reason for consult: Type 2 diabetes out of control Assessment/Plan: Dx: Type 2 diabetes, under poor control Currently taking as outpatient: Metformin 1000 mg twice daily Humalog insulin: 1:3 units at breakfast; 1:3 units at lunch; 1:3 units at supper Lantus insulin: 38 units at breakfast; 36 units at bedtime Current Hemoglobin A1C= Lab Results Component Value Date HGBA1C 8.2 (H) 11/05/2020 NOTES: BG and labs reviewed since admission. Patient reports taking QID insulin as an outpatient. Admitted with bilateral foot wounds and cellulitis. 11/07 BG and labs reviewed. WBC 12.03, Hgb 11.2, Hct 35.6 Plt 282k. 11/08: BG and labs reviewed. Patient's BG ranging from 107-221 over last 24 hours. Currently on lantus 35 units BID and humalog 1:3 TID with meals. Na: 135; K: 3.4; Creat: 0.98; eGFR: 88; Ca: 7.8; CBC: WBC: 12.03; Hgb: 11.2; Hct: 35.6; Plt: 282. Patient reports No complaints. 11/09: BG and labs reviewed over the past 24 hours. Current insulin doses include Lantus 35u BID, and Humalog 1:3 CHO ratio at meals, + sliding scale insulin with meals. MRI of the foot, with Extensive cellulitis, and concern for septic arthroplathy and osteomyelitis of the left foot. He cont. To be followed by ID, Dr Bell. The patient is wearing a wound VAC. 11/11: BG and labs reviewed. Insulin adjusted over the weekend secondary to hypoglycemia. Currentlyreceiving Lantus 25 units nightly, Humalog 4u TID premeal. He is returning to the OR today for further I&D of wound, therefore is NPO. He states his appetite has been somewhat poor. 11/12: BG and labs reviewed. Patient is currently getting Lantus 22u HS, and Humalog 1:4 CHO ratiosat meals. He continues on IV antibiotics and has a wound VAC to his left lower extremity. 11/13 BG and labs reviewed. Na 15, K 4.0, eGFR 99, creat 0.85, WBC 10.51, Hgb 10.1, Hct 32.7, Plt 545k. Patient not in room. 11/14: BG and labs reviewed, continue to be stable. Gastric emptying study performed yesterday revealed delayed gastric emptying, positive for gastroparesis. Patient wanting further education on dietmanagement for this. Otherwise no concerns or complaints. 11/18: BG and labs reviewed. Patient is currently on lantus 25u HS, and 1:4 CHO ratio. He is awaiting OR today for wound debridement, of new left ankle abcess. wound VAC was removed by Dr Conte, because the white cell count was trending upward and patient was feeling increased pain on the medial ankle. When it was removed there was copious amounts of pus coming from the dorsal foot wound seem to be originating from the medial ankle. 11/19: BG reviewed over the past 24hours. Patient is s/p INCISION AND DRAINAGE FOOT/ANKLE with Application of Wound Vac, by Dr Cherry 11/18/2020. He is currently getting Lantus 25u HS and 1:4 CHO ratio at meals. Blood Glucoses: 11/05: ___---___---___---309 11/06: 303---346---301---327 11/07 209---206---221---205---178 11/08: 107---109---98---105 11/09: 61----96-----88 ---82----112 11/10: 167---151---137---136 11/11: 115---106---86---104 11/12: 71---153---161---159 11/13 162---221---186---189 11/14 138--- 11/15: 11/16: 11/17: 94---148---132----192 11/18: 154---133---111---175 11/19: 127 Plan: 1. Rx changes: Adjust insulin doses. Humalog insulin: 1:3 units at breakfast; 1:3 units at lunch; 1:3 units at supper Lantus insulin: 25 units at breakfast; 25 units at bedtime Hold metformin. 11/07 Increase Lantus to 35 units BID and continue Humalog 1:3 ins:CHO ratio. Left foot with osteomyelitis on MRI. 11/08: CPM. 11/09: Lantus 32u HS, cont. 35u AM, and cont. 1:3 CHO ratios at meals. 11/11: Decrease Lantus 22 units nightly, continue Humalog 1:4 units TID with meals 11/12: CPM 11/13 CPM 11/14: Continue current insulin doses. Consult health facilities surveyor for gastroparesis diet education. 11/18: CPM 11/19: CPM 2. Education: Reviewed ABCs of diabetes management (respective goals in parentheses): A1C (7.0-8.0), blood pressure (<130/80), and cholesterol (LDL <100). Referral to Diabetes Education Referral to Nutrition therapy Subjective: 11/19: Patient resting quietly in bed. He has no new issues. Brief HPI: Mr. Kingsley is a 54 year old male with a past medical history of type 2 DM, HTN, hyperlipidemia who presented for evaluation of left lower extremity cellulitis swelling and pain along with lesions to right foot. Patient reports no chest pain. Occasional SOB. No blurred or double vision. Nofever or chills. Patient reports occasional nausea. Patient's labs reviewed with creat 1.82, K: 3.3, Glucose 309. Patient has had diabetes for 18 years. Diagnosed in 2001. Patient is currently taking Humalog insulin: 1:3 units at breakfast; 1:3 units at lunch; 1:3 units at supper Lantus insulin: 38 units at breakfast; 36 units at bedtime along with metformin 1000 mg BID as an out patient. Patient has taken Insulin for 12-14 years. Currently the patient is receiving no insulinat this time. Blood sugar levels since admission have been ranging from 303-309 mg/dL. Current monitoring regimen: home blood tests - 1-4 times daily Complications of diabetes include: Retinopathy: Positive: Proliferative diabetic retinopathy and Intraocular injection Nephropathy: Positive Peripheral Neuropathy: Positive Autonomic Neuropathy: Negative Allergies: No Known Allergies Home Medications: Outpatient Medications Marked as Taking for the 11/05/20 encounter (Hospital Encounter): insulin aspart U-100 (NovoLOG) 100 unit/mL injection, Inject under the skin 3 (three) times a day before meals Sliding scale, patient unsure of doses. . insulin glargine (LANTUS) 100 unit/mL injection, Inject 38 Units under the skin daily AM . insulin glargine (LANTUS) 100 unit/mL injection, Inject 32 Units under the skin nightly HS . metFORMIN (GLUCOPHAGE) 1000 MG tablet, Take 1,000 mg by mouth 2 (two) times a day with meals . Current Medications: ceFAZolin (ANCEF) IVPB 2,000 mg Intravenous Q8H heparin (porcine) 5,000 Units Subcutaneous Q8H SANCHO insulin glargine 25 Units Subcutaneous Nightly lispro insulin 0-15 Units Subcutaneous at bedtime insulin lispro 0-30 Units Subcutaneous QAM AC insulin lispro 0-30 Units Subcutaneous Daily before lunch insulin lispro 0-30 Units Subcutaneous Before dinner pantoprazole 40 mg Oral Daily acetaminophen, sodium chloride (PF) AND sodium chloride (PF) AND gadoterate meglumine, ipratropium-albuteroL, nalOXone AND Notify physician AND naloxone, ondansetron, oxyCODONE-acetaminophen, sodium chloride 0.9 % Review of Systems: Review of Systems Constitutional: Positive for appetite change and fatigue. Negative for unexpected weight change. Eyes: Negative for visual disturbance. Respiratory: Negative for cough and shortness of breath. Cardiovascular: Negative for chest pain and leg swelling. Gastrointestinal: Positive for nausea. Negative for abdominal pain, constipation, diarrhea and vomiting. Endocrine: Negative for polydipsia, polyphagia and polyuria. Genitourinary: Negative for frequency and urgency. Musculoskeletal: Positive for arthralgias and joint swelling. Skin: Positive for rash (redness and swelling to LLE) and wound (multiple wounds to foot). Neurological: Negative for numbness and headaches. Psychiatric/Behavioral: Negative for agitation and sleep disturbance. The patient is not nervous/anxious. History: Past Medical History: Diagnosis Date Diabetes mellitus, type 2 (HCC) Diabetic nephropathy (HCC) Diabetic neuropathy (HCC) Diabetic retinopathy (HCC) Hyperlipidemia Hypertension Nausea and vomiting Nephropathy Past Surgical History: Procedure Laterality Date AMPUTATION FOOT Left forefoot DEBRIDEMENT AND DRESSING CHANGE Left 11/11/2020 Procedure: DEBRIDEMENT AND DRESSING CHANGE; Surgeon: Leanne Cherry DPM; Location: Main OR; Service: Podiatry HAND SURGERY Left WOUND VAC Left 11/11/2020 Procedure: APPLICATION WOUND VAC; Surgeon: Leanne Cherry DPM; Location: Main OR; Service: Podiatry Family History Problem Relation Age of Onset Diabetes Mother Diabetes Father Heart disease Father Diabetes Brother Social History Tobacco Use Smoking status: Never Smoker Smokeless tobacco: Never Used Substance Use Topics Alcohol use: Yes Comment: rarely Drug use: Never The following portions of the patient's history were reviewed and updated as appropriate: allergies, current medications, past family history, past medical history, past social history, past surgicalhistory and problem list. Objective: BP 136/84 (BP Location: Left arm, Patient Position: Lying) Pulse 97 Temp 98.4 F (36.9 C) (Oral) Resp 14 Ht 5' 10 Wt 105 kg (231 lb 7.7 oz) SpO2 92% BMI 33.21 kg/m Wt Readings from Last 3 Encounters: 11/18/20 105 kg (231 lb 7.7 oz) 11/06/20 104.3 kg (230 lb) 11/05/20 105 kg (231 lb 7.7 oz) Physical Exam: Physical Exam Constitutional: He is oriented to person, place, and time. He appears well- developed and well-nourished. HENT: Head: Normocephalic and atraumatic. Eyes: Pupils are equal, round, and reactive to light. Conjunctivae are normal. Neck: Normal range of motion. Neck supple. No thyromegaly present. Cardiovascular: Normal rate, regular rhythm, normal heart sounds and intact distal pulses. No murmur heard. Pulmonary/Chest: Effort normal and breath sounds normal. Abdominal: Soft. Musculoskeletal: Normal range of motion. General: Deformity (left foot) and edema present. Neurological: He is alert and oriented to person, place, and time. Skin: Skin is warm and dry. There is erythema. Redness and swelling to left lower extremity Right foot status post forefoot amputation along with multiple lesions in various phases of healing. Ulcer with packing in place right foot. Left foot Wound VAC in place. Psychiatric: He has a normal mood and affect. His behavior is normal. Judgment and thought content normal. Laboratory Review: BP 136/84 (BP Location: Left arm, Patient Position: Lying) Pulse 97 Temp 98.4 F (36.9 C) (Oral) Resp 14 Ht 5' 10 Wt 105 kg (231 lb 7.7 oz) SpO2 92% BMI 33.21 kg/m Lab Results Component Value Date HGBA1C 8.2 (H) 11/05/2020 Glucose (mg/dL) Date Value 11/19/2020 132 (H) Creatinine (mg/dL) Date Value 11/19/2020 0.92 No results found for: CHOL, TRIG, HDL, LDLCALC, LDL Lab Results Component Value Date TSH 0.80 11/06/2020 No results found for: FREET4 Lab Results Component Value Date WBC 10.04 11/19/2020 HGB 10.2 (L) 11/19/2020 HCT 33.2 (L) 11/19/2020 MCV 83.0 11/19/2020 PLT 596 (H) 11/19/2020 This SmartLink has not been configured with any valid records. This SmartLink has not been configured with any valid records. Laboratory and Additional Data Reviewed: Laboratory 11/19/20 9:24 AM Medications 11/19/20 9:24 AM Transcriptions 11/19/20 9:24 AM Thank you for this consultation, we will continue to follow this patient with you. Electronically signed by Olga Wheeler APRN-BOX PERSON 208:39 AM * Palak Arora MD - 11/19/2020 8:34 AM EST [facility] Medicine Inpatient Follow-up 11/19/2020 Palak Arora MD [facility] Patient: More Kingsley Jr. Date of : 1965 (55 y.o.) PCP: Cheng Staples CNP ASSESSMENT/PLAN: More Kingsley is a 54 y.o. male is known for hypertension there is mellitus hyperlipidemia chronic kidney disease stage III with creatinine baseline is 1.3 and GFR 40 to 45% presumed diabetic nephropathy, is here due to swelling and pain in the left for this for the past 2 to 3 days, has also ulceron the right foot, reported feeling fatigue loss of appetite headaches, denies fevers or chills wasevaluated emergency department blood glucose elevated close to 400, elevated lactic acid and ketones, leukocytosis and acute kidney injury his creatinine is 1.8, tachycardia with frequent PVCs IMP -sepsis due to Left foot cellulitis and osteomyelitis -Acute kidney injury prerenal azotemia and infection related -Recurrent PVCs and often noticed bigeminy -Hypokalemia and hypophosphatemia -Lactic acidosis and mild ketosis 11/19 Sepsis Left foot cellulitis and osteomyelitis with MSSA Sepsis resolved on IV cefazolin, will check with ID plan for dc CRP 132 down from 468 Pod#1 s/p debridement and application of wound vac Acute kidney injury prerenal azotemia - resolved Type II DM adequate glycemic control Endo on board Currently on lantus 25u HS, and 1:4 CHO ratio. -Recurrent PVCs and often noticed bigeminy- stable -Hypokalemia - resolved -Lactic acidosis and mild ketosis- resolved - possible dc in the coming 24 hours SUBJECTIVE: Mild pain left foot No fever All other systems reviewed and negative other than noted above. OBJECTIVE: Physical Examination: BP 136/84 (BP Location: Left arm, Patient Position: Lying) Pulse 97 Temp 98.4 F (36.9 C) (Oral) Resp 14 Ht 5' 10 Wt 105 kg (231 lb 7.7 oz) SpO2 92% BMI 33.21 kg/m General Appearance: Alert, well appearing, and in no acute distress. HEENT: Head - Normocephalic, atraumatic. Eyes - JADE bilaterally and EOMI. Ears - normal external appearance, hearing intact. Nose - normal, no erythema. Throat - mucous membranes moist, pharynx without lesions. Neck: Supple, trachea midline. Cardiovascular: S1, S2 normal. No murmurs, rubs, clicks or gallops appreciated. No pedal edema. Respiratory: Lungs clear to auscultation, no wheezes, rales or rhonchi heard. Abdomen: Soft, non-tender, normal bowel sounds, non-distended, no masses or organomegaly appreciated. Neurological: Grossly normal motor and sensory exam. No focal deficits. Musculoskeletal: No joint tenderness, deformity or swelling. Skin: surgical dressing and wound vac in place left foot. CURRENT MEDICATIONS: ceFAZolin (ANCEF) IVPB 2,000 mg Intravenous Q8H heparin (porcine) 5,000 Units Subcutaneous Q8H SANCHO insulin glargine 25 Units Subcutaneous Nightly lispro insulin 0-15 Units Subcutaneous at bedtime insulin lispro 0-30 Units Subcutaneous QAM AC insulin lispro 0-30 Units Subcutaneous Daily before lunch insulin lispro 0-30 Units Subcutaneous Before dinner pantoprazole 40 mg Oral Daily Results/Medications Reviewed 11/19/20 10:25 AM: Results from last 7 days Lab Units 11/19/20 0424 11/18/2052211/17/20 0627 SODIUM mmol/L 136 137 136 POTASSIUM mmol/L 3.8 3.8 3.9 CHLORIDE mmol/L 103 104 105 BUN mg/dL 12 12 11 CREATININE mg/dL 0.92 0.99 0.94 GLUCOSE mg/dL 132* 136* 86 CALCIUM mg/dL 8.8 8.7 8.6 Results from last 7 days Lab Units 11/19/20 0424 11/18/20 0523 11/17/20 0627 WBC K/mcL 10.04 8.56 9.40 HGB g/dL 10.2* 10.9* 11.0* HCT % 33.2* 36.5* 36.4* PLT K/mcL 596* 581* 644* Results from last 7 days Lab Units 11/17/20 1802 PTT seconds 32 Invalid input(s): LABALBU CULTURES: Reviewed 10:25 AM IMAGING: Reviewed 10:25 AM * Marcella Bell MD - 11/18/2020 2:56 PM EST Patient Name: More Kingsley Jr. Admit Date: MR #: [id number] : 1965 Physicians: Cheng Staples CNP (Family); No ref. provider found (Referring) Assessment: Patient with 1. Left foot abscess, with MSSA 2. Osteomyelitis with MSSA 3. Uncontrolled diabetes. 4. Abdominal pain. 5. Constipation. Plan. Continue patient on current therapyn. Continue patient on IV cefazolin. I reviewed labs, including cultures, with MSSA, and be strep. I appreciate content production specialist evaluation. Patient needs incision and drainage of left foot abscess Dressing according to content production specialist recommendation Endocrinology evaluation for adequate blood sugar control We will continue to follow with you. Not on wound VAC dressing. Status post debridement. Reviewed bone cultures with MSSA. I reviewed labs. I reviewed CT scan of the abdomen and pelvis, with moderate large amount of retained stool in the proximal colon. Scheduled for for incision and drainage of the left ankle foot Subjective: Patient scheduled for incision and drainage of abscess of the left foot area. No reported fever or chills. Exam: PACU Vitals 11/18/20 1420 BP: (!) 149/99 Pulse: 85 Resp: 16 Temp: SpO2: 95% Allergies: Patient has no known allergies. Current Facility-Administered Medications: acetaminophen (TYLENOL) tablet 650 mg, 650 mg, Oral, Q6H PRN, Jennifer Gamble CNP, 650 mg at 11/11/20 2343 ceFAZolin (ANCEF) IVPB 2 g (premix), 2,000 mg, Intravenous, Q8H, Mady Russell CNP, Last Rate: 100 mL/hr at 11/18/20 0608, 2,000 mg at 11/18/20 0608 sodium chloride (PF) (NS) 0.9 % contrast line flush 10 mL, 10 mL, Intravenous, Once in imaging AND sodium chloride (PF) (NS) 0.9 % contrast line flush 10 mL, 10 mL, Intravenous, Once in imaging AND gadoterate meglumine (DOTAREM) injection 20 mL, 20 mL, Intravenous, Once in imaging, Bethanie Pinedo MD heparin (porcine) injection 5,000 Units, 5,000 Units, Subcutaneous, Q8H SANCHO, Chuyita Arias MD, Stopped at 11/18/20 0600 insulin glargine (LANTUS) injection 25 Units, 25 Units, Subcutaneous, Nightly, Chuyita Arias MD, Stopped at 11/17/20 2100 insulin lispro (HumaLOG) injection 0-15 Units, 0-15 Units, Subcutaneous, at bedtime, Jack Hair CNP, 2 Units at 11/06/20 2105 insulin lispro (HumaLOG) injection 0-30 Units, 0-30 Units, Subcutaneous, QA AC, Marvel Mcmillan MD, 0 Units at 11/16/20 0940 insulin lispro (HumaLOG) injection 0-30 Units, 0-30 Units, Subcutaneous, Daily before lunch, Marvel Mcmillan MD, 6 Units at 11/17/20 1130 insulin lispro (HumaLOG) injection 0-30 Units, 0-30 Units, Subcutaneous, Before dinner, Marvel Calero MD, 4 Units at 11/17/20 1652 ipratropium-albuteroL (DUO-NEB) 0.5-2.5 mg/3 ml nebulizer solution 3 mL, 3 mL, Inhalation, Q2H PRN,Flako Pinedo MD lactated Ringers infusion, 100 mL/hr, Intravenous, Continuous, Flako Pinedo MD, Last Rate: 100 mL/hr at 11/18/20 1424, 100 mL/hr at 11/18/20 1424 lactated Ringers infusion, 100 mL/hr, Intravenous, Continuous, Javi Barriga MD, Last Rate: 100 mL/hr at 11/17/20 1135, 100 mL/hr at 11/17/20 1135 lactated Ringers infusion, 100 mL/hr, Intravenous, Continuous, Almas Gutierrez MD naloxone (NARCAN) injection 0.1 mg, 0.1 mg, Intravenous, PRN AND Notify physician, , , Until Discontinued AND naloxone (NARCAN) injection 0.4 mg, 0.4 mg, Intravenous, PRN, Jean Farley MD ondansetron (ZOFRAN) injection 4 mg, 4 mg, Intravenous, Q6H PRN, Flako Pinedo MD, 4 mg at 11/11/202050 oxyCODONE-acetaminophen (PERCOCET) 5-325 mg per tablet 1 tablet, 1 tablet, Oral, Q4H PRN, Jean Farley MD, 1 tablet at 11/17/202145 pantoprazole (PROTONIX) EC tablet 40 mg, 40 mg, Oral, Daily, Chuyita Arias MD, 40 mg at 11/18/20 0857 sodium chloride 0.9% (NS), 0-150 mL/hr, Intravenous, PRN, Tanja Whitmore, [facility],PharmD, New Bag at 11/11/20 1615 PMH/PSH// reviewed, no change : Review of Systems: All systems were reviewed no change: Medications Reviewed. Chart Reviewed. Wound: Foot with description as in the extremities. Please see pictures. Justice Catheter: None IV Access: Yes I reviewed Medications. I reviewed Labs. Laboratory and Additional Data Reviewed: Laboratory 11/18/20 2:56 PM Microbiology 11/18/20 2:56 PM Radiology 11/18/20 2:56 PM XR Foot Left 3+ Views (Standard) Final Result Large ulceration overlying the dorsum of the foot. Degenerative changes. No definite bony erosion or fracture. Workstation ID: [id number] CT Abdomen Pelvis Without Contrast Final Result 1. Single bilateral punctate nonobstructing renal calculi. No evidence of an obstructive uropathy. 2. Moderate-large amount of retained stool in the proximal colon and [id number] amount of retained stool in the distal colon, which could be related to a mild colonic ileus. No evidence of a bowel obstruction. 3. Mild pelvic and inguinal lymphadenopathy that may be reactive. 4. Questionable sludge or gallstones in the gallbladder. No evidence of cholecystitis. 5. Trace pleural effusions and mild atelectasis in both lung bases. DSS/ges Workstation ID: [id number] Segmental Doppler Lower Extremity Arterial Final Result NM Gastric Emptying Final Result Delayed gastric emptying. Workstation ID: [id number] MR Foot Left With And Without Contrast Final Result 1. Abnormal appearance of the midfoot particularly at the 2nd through 5th TMT joints and navicular-middle cuneiform articulations. Given the nearby dorsal skin wound, and degree of inflammation, these findings are concerning for multifocal septic arthropathy and osteomyelitis. Superimposed neuropathic arthropathy is not excluded. The talus and calcaneus appear spared. 2. Extensive cellulitis without obvious abscess. There is some nonenhancement along the midfoot concerning for tissue necrosis. 3. 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 4. No tendon tear or tenosynovitis is seen. MPH/ThisNextv Workstation ID: [id number] MR Foot Right With And Without Contrast Final Result 1. Prior forefoot resection. Cellulitis of the surgical stump is seen associated with small ulceration. 2. No abscess. 3. No MR signs of osteomyelitis. 4. [id number] mid/hindfoot osteoarthritis. 5. Remote sprains of the ATFL and deep fibers of the deltoid ligament, as above. MPH/Dizzion Workstation ID: [id number] XR Foot Left 3+ Views (Standard) Final Result No definite plain film evidence of osteomyelitis in the right or left foot Workstation ID: [id number] XR Foot Right 3+ Views (Standard) Final Result No definite plain film evidence of osteomyelitis in the right or left foot Workstation ID: [id number] XR Comparison Import Final Result CT Comparison Import Final Result XR Chest 1 View Final Result Shallow lungs with right basilar opacity, could be atelectasis or pneumonia Workstation ID: [id number] Medications 11/18/20 2:56 PM Lab Results Component Value Date WBC 8.56 11/18/2020 HGB 10.9 (L) 11/18/2020 HCT 36.5 (L) 11/18/2020 MCV 85.9 11/18/2020 PLT 581 (H) 11/18/2020 Lab Results Component Value Date GLUCOSE 136 (H) 11/18/2020 CALCIUM 8.7 11/18/2020 NA 137 11/18/2020 K 3.8 11/18/2020 CL 104 11/18/2020 BUN 12 11/18/2020 CREATININE 0.99 11/18/2020 Problem List Items Addressed This Visit Endocrine * (Principal) Secondary DM with DKA (HCC) Relevant Medications insulin glargine (LANTUS) 100 unit/mL injection insulin glargine (LANTUS) 100 unit/mL injection insulin aspart U-100 (NovoLOG) 100 unit/mL injection insulin lispro (HumaLOG) injection 0-15 Units insulin lispro (HumaLOG) injection 0-30 Units insulin lispro (HumaLOG) injection 0-30 Units insulin lispro (HumaLOG) injection 0-30 Units insulin glargine (LANTUS) injection 25 Units Other Visit Diagnoses Uncontrolled type 2 diabetes mellitus with peripheral neuropathy (HCC) Relevant Medications insulin glargine (LANTUS) 100 unit/mL injection insulin glargine (LANTUS) 100 unit/mL injection insulin aspart U-100 (NovoLOG) 100 unit/mL injection insulin lispro (HumaLOG) injection 0-15 Units insulin lispro (HumaLOG) injection 0-30 Units insulin lispro (HumaLOG) injection 0-30 Units insulin lispro (HumaLOG) injection 0-30 Units insulin glargine (LANTUS) injection 25 Units I discussed my management plans with Patient/and or Family member, and also discussed antibiotics therapy including side effects with Patient/and or Family member. Medical Decision Making: Moderate This note is created with the assistance of a speech-recognition program. While intending to generate a document that actually reflects the content of the visit, the document can still have some errors including those of syntax and sound a- like substitutions which may escape proofreading. In such instances, actual meaning can be extrapolated by contextual derivation. * Rosalinda Reyes RD - 11/18/2020 1:23 PM EST . Nutrition Care Follow Up Monitoring and Evaluation: PO intake was 75 or greater at 2 out of 3 meals documented since 11/13 Nutrition Diagnosis: Altered nutrition-related lab values r/t endorine dysfunction AEB POC BG 303-346 mg/dL will change dx New Nutrition Diagnosis: Increased nutrient needs related to need for wound healing AEB having more surgery-debridement on Lfoot, had wound vac on prior to surgery. Nutrition Intervention/Prescription: Initiate Diet Continue Oral Nutrition Supplement Diet: after surgery- recommend CHO consistent 75gm CHO/meal, cardiac Oral nutrition supplement: Tyree BID (order still in [facility]) Nutrition Goals: Source of Nutrition in next 24-48 hrs x next 4 days Nutrition Education: Nia Ya RDN 11/16 educated pt on gastroparesis and diabetes Assessment: Pertinent clinical information: S/p I+D L foot abscess, wound vac removed by 11/17. Currently in surgery for debridement d/t new medial left ankle abscess, will probably have wound vac post-op. Current weight: 105 kg (231 lb 7.7 oz) today Body mass index is 33.21 kg/m . Weight: wt steady since admitted Current diet order:NPO Current oral nutrition supplement: Tyree BID Recent intake: 11/13 75-100x1 11/14 0-25x1, 75-100x1 No intakes documented since 11/14 Current intake RDN unsure if meets estimated needs. Patient/family comments: Could not talk to pt, currently in surgery. Difficulty Chewing/Swallowing: No Skin Integrity: wound L foot GI Function: LBM 11/16 Physical Appearance: DIEGO- RDN working remotely Labs: Recent Labs 11/18/20 0523 NA 137 K 3.8 BICARB 27 CL 104 GLUCOSE 136* BUN 12 CREATININE 0.99 MG 1.8 POC Today 133-154 11/17 94-192 Scheduled Meds: [Jan] ceFAZolin (ANCEF) IVPB 2,000 mg Intravenous Q8H [Jan] heparin (porcine) 5,000 Units Subcutaneous Q8H SANCHO [Jan] insulin glargine 25 Units Subcutaneous Nightly [Jan] lispro insulin 0-15 Units Subcutaneous at bedtime [Jan] insulin lispro 0-30 Units Subcutaneous QAM AC [Jan] insulin lispro 0-30 Units Subcutaneous Daily before lunch [Jan] insulin lispro 0-30 Units Subcutaneous Before dinner [Jan] pantoprazole 40 mg Oral Daily Continuous Infusions: [Jan] lactated Ringers 100 mL/hr (11/18/20 0612) lactated Ringers 100 mL/hr (11/17/20 1135) [MAR Hold] sodium chloride 0.9 % Estimated Energy Needs Total Energy Estimated Needs: 1950 kcals/day Method for Estimating Needs: MSJ x 1.3AF -500 kcals/day to promote 1# weight loss/week Total Protein Estimated Needs: 81-97 gms/day Method for Estimating Needs: 1.0-1.2 gms/kg adjusted BW Will continue to follow. Rosalinda Reyes RDN, LD Dietitian's Office [phone] * Palak Arora MD - 11/18/2020 9:28 AM EST [facility] Medicine Inpatient H&P 11/18/2020 Palak Arora MD [facility] Patient: More Kingsley Jr. Date of : 1965 (55 y.o.) PCP: Cheng Staples, BOX PERSON Assessment More Kingsley is a 54 y.o. male is known for hypertension there is mellitus hyperlipidemia chronic kidney disease stage III with creatinine baseline is 1.3 and GFR 40 to 45% presumed diabetic nephropathy, is here due to swelling and pain in the left for this for the past 2 to 3 days, has also ulceron the right foot, reported feeling fatigue loss of appetite headaches, denies fevers or chills wasevaluated emergency department blood glucose elevated close to 400, elevated lactic acid and ketones, leukocytosis and acute kidney injury his creatinine is 1.8, tachycardia with frequent PVCs IMP -sepsis due to Left foot cellulitis and osteomyelitis -Acute kidney injury prerenal azotemia and infection related -Recurrent PVCs and often noticed bigeminy -Hypokalemia and hypophosphatemia -Lactic acidosis and mild ketosis 11/17 In summary 55-year-old male history of uncontrolled diabetes get admitted to the hospital with diagnosis of cellulitis left leg associated with kidney injury For infection started on IV antibiotics management per ID and patient had IND then wound VAC per podiatry status post DC wound VAC today plan for foot surgery tomorrow During hospitalization patient reported intermittent nausea and vomiting associated with mild abdominal discomfort CT abdomen and pelvis done did not show any acute findings and gastric emptying study showed findings of gastroparesis patient had Reglan 48 hours with slight improvement I will DC Regl an today continue small portion meals to avoid any abdominal distention BUN/creatinine improved patient did not require any renal replacement therapy Currently patient feeling okay no acute issues overnight vital signs stable Continue current treatment and plan for foot surgery tomorrow by podiatry 11/18 Sepsis Left foot cellulitis and osteomyelitis with MSSA On IV cefazolin CRP 132 down from 468 Plan to OR today for further dbridement Will probbly had a wound vac postop. Acute kidney injury prerenal azotemia - resolved Type II DM inadequate glycemic control Endo on board Currently on lantus 25u HS, and 1:4 CHO ratio. -Recurrent PVCs and often noticed bigeminy- stable -Hypokalemia - resolved -Lactic acidosis and mild ketosis- resolved SUBJECTIVE: Chief Complaint: Left foot pain and swelling History of Presenting Illness: More Kingsley is a 55 y.o. male is known for hypertension there is mellitus hyperlipidemia chronic kidney disease stage III with creatinine baseline is 1.3 and GFR 40 to 45% presumed diabetic nephropathy, is here due to swelling and pain in the left for this for the past 2 to 3 days, has also ulceron the right foot, reported feeling fatigue loss of appetite headaches, denies fevers or chills wasevaluated emergency department blood glucose elevated close to 400, elevated lactic acid and ketones, leukocytosis and acute kidney injury his creatinine is 1.8, tachycardia with frequent PVCs Review of Systems: 10 systems reviewed and negative other than noted in HPI OBJECTIVE: Physical Examination: BP (!) 154/96 (BP Location: Left arm, Patient Position: Lying) Pulse 87 Temp 98.1 F (36.7 C) (Oral) Resp 16 Ht 5' 10 Wt 105 kg (231 lb 7.7 oz) SpO2 93% BMI 33.21 kg/m General Appearance: Alert, well appearing, and in no acute distress. HEENT: Head - Normocephalic, atraumatic. Eyes - JADE bilaterally and EOMI. Ears - normal external appearance, hearing intact. Nose - normal, no erythema. Throat - mucous membranes moist, pharynx without lesions. Neck: Supple, trachea midline. Cardiovascular: S1, S2 normal. No murmurs, rubs, clicks or gallops appreciated. No pedal edema. Respiratory: Lungs clear to auscultation, no wheezes, rales or rhonchi heard. Abdomen: Soft, non-tender, normal bowel sounds, non-distended, no masses or organomegaly appreciated. Neurological: Grossly normal motor and sensory exam. No focal deficits. Musculoskeletal: No joint tenderness, deformity or swelling. Skin: Normal coloration and turgor. No rashes. Psych: Alert, oriented x 3. Normal mood and affect. Laboratory and Additional Data Reviewed: Results/Medications Reviewed 11/18/20 9:28 AM: Results from last 7 days Lab Units 11/18/20 0511/17/2062611/16/20 0603 SODIUM mmol/L 137 136 138 POTASSIUM mmol/L 3.8 3.9 3.7 CHLORIDE mmol/L 104 105 104 BUN mg/dL 12 11 10 CREATININE mg/dL 0.99 0.94 1.03 GLUCOSE mg/dL 136* 86 103* CALCIUM mg/dL 8.7 8.6 8.6 Results from last 7 days Lab Units 11/18/20 0511/17/20 0611/16/20 0603 WBC K/mcL 8.56 9.40 9.26 HGB g/dL 10.9* 11.0* 10.8* HCT % 36.5* 36.4* 35.7* PLT K/mcL 581* 644* 658* Results from last 7 days Lab Units 11/17/20 1802 PTT seconds 32 Invalid input(s): LABALBU CULTURES: Reviewed 9:28 AM IMAGING: Reviewed 9:28 AM * Olga Wheeler CNP - 11/18/2020 8:39 AM EST Patient ID: Patient Name: More Kingsley Jr. Admit Date: 11/05/2020 MR #: [id number] : 1965 Current location: [facility] [place] Physicians: Cheng Staples CNP (Family); Dr. Pinedo (Referring) Reason for consult: Type 2 diabetes out of control Assessment/Plan: Dx: Type 2 diabetes, under poor control Currently taking as outpatient: Metformin 1000 mg twice daily Humalog insulin: 1:3 units at breakfast; 1:3 units at lunch; 1:3 units at supper Lantus insulin: 38 units at breakfast; 36 units at bedtime Current Hemoglobin A1C= Lab Results Component Value Date HGBA1C 8.2 (H) 11/05/2020 NOTES: BG and labs reviewed since admission. Patient reports taking QID insulin as an outpatient. Admitted with bilateral foot wounds and cellulitis. 11/07 BG and labs reviewed. WBC 12.03, Hgb 11.2, Hct 35.6 Plt 282k. 11/08: BG and labs reviewed. Patient's BG ranging from 107-221 over last 24 hours. Currently on lantus 35 units BID and humalog 1:3 TID with meals. Na: 135; K: 3.4; Creat: 0.98; eGFR: 88; Ca: 7.8; CBC: WBC: 12.03; Hgb: 11.2; Hct: 35.6; Plt: 282. Patient reports No complaints. 11/09: BG and labs reviewed over the past 24 hours. Current insulin doses include Lantus 35u BID, and Humalog 1:3 CHO ratio at meals, + sliding scale insulin with meals. MRI of the foot, with Extensive cellulitis, and concern for septic arthroplathy and osteomyelitis of the left foot. He cont. To be followed by ID, Dr Bell. The patient is wearing a wound VAC. 11/11: BG and labs reviewed. Insulin adjusted over the weekend secondary to hypoglycemia. Currentlyreceiving Lantus 25 units nightly, Humalog 4u TID premeal. He is returning to the OR today for further I&D of wound, therefore is NPO. He states his appetite has been somewhat poor. 11/12: BG and labs reviewed. Patient is currently getting Lantus 22u HS, and Humalog 1:4 CHO ratiosat meals. He continues on IV antibiotics and has a wound VAC to his left lower extremity. 11/13 BG and labs reviewed. Na 15, K 4.0, eGFR 99, creat 0.85, WBC 10.51, Hgb 10.1, Hct 32.7, Plt 545k. Patient not in room. 11/14: BG and labs reviewed, continue to be stable. Gastric emptying study performed yesterday revealed delayed gastric emptying, positive for gastroparesis. Patient wanting further education on dietmanagement for this. Otherwise no concerns or complaints. 11/18: BG and labs reviewed. Patient is currently on lantus 25u HS, and 1:4 CHO ratio. He is awaiting OR today for wound debridement, of new left ankle abcess. wound VAC was removed by Dr Conte, because the white cell count was trending upward and patient was feeling increased pain on the medial ankle. When it was removed there was copious amounts of pus coming from the dorsal foot wound seem to be originating from the medial ankle. Blood Glucoses: 11/05: ___---___---___---309 11/06: 303---346---301---327 11/07 209---206---221---205---178 11/08: 107---109---98---105 11/09: 61----96-----88 ---82----112 11/10: 167---151---137---136 11/11: 115---106---86---104 11/12: 71---153---161---159 11/13 162---221---186---189 11/14 138--- 11/15: 11/16: 11/17: 94---148---132----192 11/18: 154 Plan: 1. Rx changes: Adjust insulin doses. Humalog insulin: 1:3 units at breakfast; 1:3 units at lunch; 1:3 units at supper Lantus insulin: 25 units at breakfast; 25 units at bedtime Hold metformin. 11/07 Increase Lantus to 35 units BID and continue Humalog 1:3 ins:CHO ratio. Left foot with osteomyelitis on MRI. 11/08: CPM. 11/09: Lantus 32u HS, cont. 35u AM, and cont. 1:3 CHO ratios at meals. 11/11: Decrease Lantus 22 units nightly, continue Humalog 1:4 units TID with meals 11/12: CPM 11/13 CPM 11/14: Continue current insulin doses. Consult health facilities surveyor for gastroparesis diet education. 11/18: CPM 2. Education: Reviewed ABCs of diabetes management (respective goals in parentheses): A1C (7.0-8.0), blood pressure (<130/80), and cholesterol (LDL <100). Referral to Diabetes Education Referral to Nutrition therapy Subjective: 11/18: Patient resting quietly in bed. He is awaiting wound debridement sometime today. Brief HPI: Mr. Kingsley is a 54 year old male with a past medical history of type 2 DM, HTN, hyperlipidemia who presented for evaluation of left lower extremity cellulitis swelling and pain along with lesions to right foot. Patient reports no chest pain. Occasional SOB. No blurred or double vision. Nofever or chills. Patient reports occasional nausea. Patient's labs reviewed with creat 1.82, K: 3.3, Glucose 309. Patient has had diabetes for 18 years. Diagnosed in 2001. Patient is currently taking Humalog insulin: 1:3 units at breakfast; 1:3 units at lunch; 1:3 units at supper Lantus insulin: 38 units at breakfast; 36 units at bedtime along with metformin 1000 mg BID as an out patient. Patient has taken Insulin for 12-14 years. Currently the patient is receiving no insulinat this time. Blood sugar levels since admission have been ranging from 303-309 mg/dL. Current monitoring regimen: home blood tests - 1-4 times daily Complications of diabetes include: Retinopathy: Positive: Proliferative diabetic retinopathy and Intraocular injection Nephropathy: Positive Peripheral Neuropathy: Positive Autonomic Neuropathy: Negative Allergies: No Known Allergies Home Medications: Outpatient Medications Marked as Taking for the 11/05/20 encounter (Hospital Encounter): insulin aspart U-100 (NovoLOG) 100 unit/mL injection, Inject under the skin 3 (three) times a day before meals Sliding scale, patient unsure of doses. . insulin glargine (LANTUS) 100 unit/mL injection, Inject 38 Units under the skin daily AM . insulin glargine (LANTUS) 100 unit/mL injection, Inject 32 Units under the skin nightly HS . metFORMIN (GLUCOPHAGE) 1000 MG tablet, Take 1,000 mg by mouth 2 (two) times a day with meals . Current Medications: ceFAZolin (ANCEF) IVPB 2,000 mg Intravenous Q8H heparin (porcine) 5,000 Units Subcutaneous Q8H SANCHO insulin glargine 25 Units Subcutaneous Nightly lispro insulin 0-15 Units Subcutaneous at bedtime insulin lispro 0-30 Units Subcutaneous QAM AC insulin lispro 0-30 Units Subcutaneous Daily before lunch insulin lispro 0-30 Units Subcutaneous Before dinner pantoprazole 40 mg Oral Daily acetaminophen, sodium chloride (PF) AND sodium chloride (PF) AND gadoterate meglumine, ipratropium-albuteroL, nalOXone AND Notify physician AND naloxone, ondansetron, oxyCODONE-acetaminophen, sodium chloride 0.9 % Review of Systems: Review of Systems Constitutional: Positive for appetite change and fatigue. Negative for unexpected weight change. Eyes: Negative for visual disturbance. Respiratory: Negative for cough and shortness of breath. Cardiovascular: Negative for chest pain and leg swelling. Gastrointestinal: Positive for nausea. Negative for abdominal pain, constipation, diarrhea and vomiting. Endocrine: Negative for polydipsia, polyphagia and polyuria. Genitourinary: Negative for frequency and urgency. Musculoskeletal: Positive for arthralgias and joint swelling. Skin: Positive for rash (redness and swelling to LLE) and wound (multiple wounds to foot). Neurological: Negative for numbness and headaches. Psychiatric/Behavioral: Negative for agitation and sleep disturbance. The patient is not nervous/anxious. History: Past Medical History: Diagnosis Date Diabetes mellitus, type 2 (HCC) Diabetic nephropathy (HCC) Diabetic neuropathy (HCC) Diabetic retinopathy (HCC) Hyperlipidemia Hypertension Nausea and vomiting Nephropathy Past Surgical History: Procedure Laterality Date AMPUTATION FOOT Left forefoot DEBRIDEMENT AND DRESSING CHANGE Left 11/11/2020 Procedure: DEBRIDEMENT AND DRESSING CHANGE; Surgeon: Leanne Cherry DPM; Location: Main OR; Service: Podiatry HAND SURGERY Left WOUND VAC Left 11/11/2020 Procedure: APPLICATION WOUND VAC; Surgeon: Leanne Cherry DPM; Location: Main OR; Service: Podiatry Family History Problem Relation Age of Onset Diabetes Mother Diabetes Father Heart disease Father Diabetes Brother Social History Tobacco Use Smoking status: Never Smoker Smokeless tobacco: Never Used Substance Use Topics Alcohol use: Yes Comment: rarely Drug use: Never The following portions of the patient's history were reviewed and updated as appropriate: allergies, current medications, past family history, past medical history, past social history, past surgicalhistory and problem list. Objective: BP (!) 154/96 Pulse 87 Temp 98.1 F (36.7 C) (Oral) Resp 16 Ht 5' 10 Wt 105 kg (231 lb 7.7 oz) SpO2 93% BMI 33.21 kg/m Wt Readings from Last 3 Encounters: 11/05/20 105 kg (231 lb 7.7 oz) 11/06/20 104.3 kg (230 lb) 11/05/20 105 kg (231 lb 7.7 oz) Physical Exam: 11/14: Exam deferred to reduce patient contact due to COVID-19 pandemic Physical Exam Constitutional: He is oriented to person, place, and time. He appears well- developed and well-nourished. HENT: Head: Normocephalic and atraumatic. Eyes: Pupils are equal, round, and reactive to light. Conjunctivae are normal. Neck: Normal range of motion. Neck supple. No thyromegaly present. Cardiovascular: Normal rate, regular rhythm, normal heart sounds and intact distal pulses. No murmur heard. Pulmonary/Chest: Effort normal and breath sounds normal. Abdominal: Soft. Musculoskeletal: Normal range of motion. General: Deformity (left foot) and edema present. Neurological: He is alert and oriented to person, place, and time. Skin: Skin is warm and dry. There is erythema. Redness and swelling to left lower extremity Right foot status post forefoot amputation along with multiple lesions in various phases of healing. Ulcer with packing in place right foot. Left foot Wound VAC in place. Psychiatric: He has a normal mood and affect. His behavior is normal. Judgment and thought content normal. Laboratory Review: BP (!) 154/96 Pulse 87 Temp 98.1 F (36.7 C) (Oral) Resp 16 Ht 5' 10 Wt 105 kg (231 lb 7.7 oz) SpO2 93% BMI 33.21 kg/m Lab Results Component Value Date HGBA1C 8.2 (H) 11/05/2020 Glucose (mg/dL) Date Value 11/18/2020 136 (H) Creatinine (mg/dL) Date Value 11/18/2020 0.99 No results found for: CHOL, TRIG, HDL, LDLCALC, LDL Lab Results Component Value Date TSH 0.80 11/06/2020 No results found for: FREET4 Lab Results Component Value Date WBC 8.56 11/18/2020 HGB 10.9 (L) 11/18/2020 HCT 36.5 (L) 11/18/2020 MCV 85.9 11/18/2020 PLT 581 (H) 11/18/2020 This SmartLink has not been configured with any valid records. This SmartLink has not been configured with any valid records. Laboratory and Additional Data Reviewed: Laboratory 11/18/20 8:39 AM Medications 11/18/20 8:39 AM Transcriptions 11/18/20 8:39 AM Thank you for this consultation, we will continue to follow this patient with you. Electronically signed by Olga CHAVEZ 208:39 AM * Marcella Bell MD - 11/17/2020 3:31 PM EST Patient Name: More Kingsley Jr. Admit Date: MR #: [id number] : 1965 Physicians: Cheng Staples CNP (Family); No ref. provider found (Referring) Assessment: Patient with 1. Left foot abscess, with MSSA 2. Osteomyelitis with MSSA 3. Uncontrolled diabetes. 4. Abdominal pain. 5. Constipation. Plan. Continue patient on current therapyn. Continue patient on IV cefazolin. I reviewed labs, including cultures, with MSSA, and be strep. I appreciate content production specialist evaluation. Patient needs incision and drainage of left foot abscess Dressing according to content production specialist recommendation Endocrinology evaluation for adequate blood sugar control We will continue to follow with you. Not on wound VAC dressing. Status post debridement. Reviewed bone cultures with MSSA. I reviewed labs. I reviewed CT scan of the abdomen and pelvis, with moderate large amount of retained stool in the proximal colon. I discussed with Dr. Conte on management plan, scheduling for incision and drainage Subjective: I did reexamine patient, with no new symptoms, no fever no chills, foot still with swelling and areas of concern for abscess noted. Exam: PACU Vitals 12/27/20 1135 BP: (!) 150/94 Pulse: 98 Resp: Temp: 98.5 F (36.9 C) SpO2: 94% Allergies: Patient has no known allergies. Current Facility-Administered Medications: acetaminophen (TYLENOL) tablet 650 mg, 650 mg, Oral, Q6H PRN, Jennifer Gamble CNP, 650 mg at 11/11/20 2343 ceFAZolin (ANCEF) IVPB 2 g (premix), 2,000 mg, Intravenous, Q8H, Mady Russell CNP, Last Rate: 100 mL/hr at 11/17/20 1448, 2,000 mg at 11/17/20 1448 sodium chloride (PF) (NS) 0.9 % contrast line flush 10 mL, 10 mL, Intravenous, Once in imaging AND sodium chloride (PF) (NS) 0.9 % contrast line flush 10 mL, 10 mL, Intravenous, Once in imaging AND gadoterate meglumine (DOTAREM) injection 20 mL, 20 mL, Intravenous, Once in imaging, Bethanie Pinedo MD heparin (porcine) injection 5,000 Units, 5,000 Units, Subcutaneous, Q8H SANCHO, Chuyita Arias MD insulin glargine (LANTUS) injection 25 Units, 25 Units, Subcutaneous, Nightly, Chuyita Arias MD, 25 Units at 11/16/202051 insulin lispro (HumaLOG) injection 0-15 Units, 0-15 Units, Subcutaneous, at bedtime, Jack Hair CNP, 2 Units at 11/06/20 2105 insulin lispro (HumaLOG) injection 0-30 Units, 0-30 Units, Subcutaneous, QAM AC, Marvel Mcmillan MD, 0 Units at 11/16/20 0940 insulin lispro (HumaLOG) injection 0-30 Units, 0-30 Units, Subcutaneous, Daily before lunch, Marvel Mcmillan MD, 6 Units at 11/17/20 1130 insulin lispro (HumaLOG) injection 0-30 Units, 0-30 Units, Subcutaneous, Before dinner, Marvel Calero MD, 4 Units at 11/16/20 1820 ipratropium-albuteroL (DUO-NEB) 0.5-2.5 mg/3 ml nebulizer solution 3 mL, 3 mL, Inhalation, Q2H PRN,Flako Pinedo MD lactated Ringers infusion, 100 mL/hr, Intravenous, Continuous, Flako Pinedo MD, Last Rate: 100 mL/hr at 11/16/20 2354, 100 mL/hr at 11/16/20 2354 lactated Ringers infusion, 100 mL/hr, Intravenous, Continuous, Javi Barriga MD, Last Rate: 100 mL/hr at 11/17/20 1135, 100 mL/hr at 11/17/20 1135 naloxone (NARCAN) injection 0.1 mg, 0.1 mg, Intravenous, PRN AND Notify physician, , , Until Discontinued AND naloxone (NARCAN) injection 0.4 mg, 0.4 mg, Intravenous, PRN, Jean Farley MD ondansetron (ZOFRAN) injection 4 mg, 4 mg, Intravenous, Q6H PRN, Flako Pinedo MD, 4 mg at 11/11/202050 oxyCODONE-acetaminophen (PERCOCET) 5-325 mg per tablet 1 tablet, 1 tablet, Oral, Q4H PRN, Jean Farley MD, 1 tablet at 11/16/202051 pantoprazole (PROTONIX) EC tablet 40 mg, 40 mg, Oral, Daily, Chuyita Arias MD, 40 mg at 11/17/20 0812 sodium chloride 0.9% (NS), 0-150 mL/hr, Intravenous, PRN, Tanja Whitmore, [facility],PharmD, New Bag at 11/11/20 1615 PMH/PSH/SH/ reviewed, no change : Review of Systems: All systems were reviewed no change: Medications Reviewed. Chart Reviewed. Exam Findings: Chest: Lungs clear bilaterally, no wheezing, or rales CVS: Normal S1 & S2+, Normal Rhythm Abdomen: Obese, normal symmetry, Soft/non-tender. Benign, BS+ Extremities: +Deformities, edema and deformity of the foot, with left foot with areas of fluctuancein the medial aspect of the foot and ankle noted. Distal aspect with incision, angry looking still.With erythema and edema. 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 Please see pictures. Justice Catheter: None IV Access: Yes I reviewed Medications. I reviewed Labs. Laboratory and Additional Data Reviewed: Laboratory 11/17/20 3:31 PM Microbiology 11/17/20 3:31 PM Radiology 11/17/20 3:31 PM XR Foot Left 3+ Views (Standard) Final Result Large ulceration overlying the dorsum of the foot. Degenerative changes. No definite bony erosion or fracture. Workstation ID: [id number] CT Abdomen Pelvis Without Contrast Final Result 1. Single bilateral punctate nonobstructing renal calculi. No evidence of an obstructive uropathy. 2. Moderate-large amount of retained stool in the proximal colon and [id number] amount of retained stool in the distal colon, which could be related to a mild colonic ileus. No evidence of a bowel obstruction. 3. Mild pelvic and inguinal lymphadenopathy that may be reactive. 4. Questionable sludge or gallstones in the gallbladder. No evidence of cholecystitis. 5. Trace pleural effusions and mild atelectasis in both lung bases. DSS/ges Workstation ID: [id number] Segmental Doppler Lower Extremity Arterial Final Result NM Gastric Emptying Final Result Delayed gastric emptying. Workstation ID: [id number] MR Foot Left With And Without Contrast Final Result 1. Abnormal appearance of the midfoot particularly at the 2nd through 5th TMT joints and navicular-middle cuneiform articulations. Given the nearby dorsal skin wound, and degree of inflammation, these findings are concerning for multifocal septic arthropathy and osteomyelitis. Superimposed neuropathic arthropathy is not excluded. The talus and calcaneus appear spared. 2. Extensive cellulitis without obvious abscess. There is some nonenhancement along the midfoot concerning for tissue necrosis. 3. 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 4. No tendon tear or tenosynovitis is seen. MPH/mkv Workstation ID: [id number] MR Foot Right With And Without Contrast Final Result 1. Prior forefoot resection. Cellulitis of the surgical stump is seen associated with small ulceration. 2. No abscess. 3. No MR signs of osteomyelitis. 4. Prdu-pc-xxztinwk mid/hindfoot osteoarthritis. 5. Remote sprains of the ATFL and deep fibers of the deltoid ligament, as above. MPH/sms Workstation ID: [id number] XR Foot Left 3+ Views (Standard) Final Result No definite plain film evidence of osteomyelitis in the right or left foot Workstation ID: [id number] XR Foot Right 3+ Views (Standard) Final Result No definite plain film evidence of osteomyelitis in the right or left foot Workstation ID: [id number] XR Comparison Import Final Result CT Comparison Import Final Result XR Chest 1 View Final Result Shallow lungs with right basilar opacity, could be atelectasis or pneumonia Workstation ID: [id number] Medications 11/17/20 3:31 PM Lab Results Component Value Date WBC 9.40 11/17/2020 HGB 11.0 (L) 11/17/2020 HCT 36.4 (L) 11/17/2020 MCV 85.4 11/17/2020 PLT 644 (H) 11/17/2020 Lab Results Component Value Date GLUCOSE 86 11/17/2020 CALCIUM 8.6 11/17/2020 NA 136 11/17/2020 K 3.9 11/17/2020 CL 105 11/17/2020 BUN 11 11/17/2020 CREATININE 0.94 11/17/2020 Problem List Items Addressed This Visit Endocrine * (Principal) Secondary DM with DKA (HCC) Relevant Medications insulin glargine (LANTUS) 100 unit/mL injection insulin glargine (LANTUS) 100 unit/mL injection insulin aspart U-100 (NovoLOG) 100 unit/mL injection insulin lispro (HumaLOG) injection 0-15 Units insulin lispro (HumaLOG) injection 0-30 Units insulin lispro (HumaLOG) injection 0-30 Units insulin lispro (HumaLOG) injection 0-30 Units insulin glargine (LANTUS) injection 25 Units Other Visit Diagnoses Uncontrolled type 2 diabetes mellitus with peripheral neuropathy (HCC) Relevant Medications insulin glargine (LANTUS) 100 unit/mL injection insulin glargine (LANTUS) 100 unit/mL injection insulin aspart U-100 (NovoLOG) 100 unit/mL injection insulin lispro (HumaLOG) injection 0-15 Units insulin lispro (HumaLOG) injection 0-30 Units insulin lispro (HumaLOG) injection 0-30 Units insulin lispro (HumaLOG) injection 0-30 Units insulin glargine (LANTUS) injection 25 Units I discussed my management plans with Patient/and or Family member, and also discussed antibiotics therapy including side effects with Patient/and or Family member. Medical Decision Making: Moderate This note is created with the assistance of a speech-recognition program. While intending to generate a document that actually reflects the content of the visit, the document can still have some errors including those of syntax and sound a- like substitutions which may escape proofreading. In such instances, actual meaning can be extrapolated by contextual derivation. * Chuyita Arias MD - 11/17/2020 10:29 AM EST [facility] Medicine Inpatient H&P 11/17/2020 Chuyita Arias MD [facility] Patient: More Kingsley Jr. Date of : 1965 (55 y.o.) PCP: Cheng Staples, BOX PERSON Assessment More Kingsley is a 54 y.o. male is known for hypertension there is mellitus hyperlipidemia chronic kidney disease stage III with creatinine baseline is 1.3 and GFR 40 to 45% presumed diabetic nephropathy, is here due to swelling and pain in the left for this for the past 2 to 3 days, has also ulceron the right foot, reported feeling fatigue loss of appetite headaches, denies fevers or chills wasevaluated emergency department blood glucose elevated close to 400, elevated lactic acid and ketones, leukocytosis and acute kidney injury his creatinine is 1.8, tachycardia with frequent PVCs IMP -sepsis due to Left foot cellulitis and osteomyelitis -Acute kidney injury prerenal azotemia and infection related -Recurrent PVCs and often noticed bigeminy -Hypokalemia and hypophosphatemia -Lactic acidosis and mild ketosis PLAN Left foot abscess and osteomyelitis Sepsis Seen and examined Clinically better Plan of pain of left foot No fever Blood culture are negative Wound culture grew Moderate Growth Staphylococcus aureusAbnormal MRI of left foot 1. Abnormal appearance of the midfoot particularly at the 2nd through 5th TMT joints and navicular-middle cuneiform articulations. Given the nearby dorsal skin wound, and degree of inflammation, these findings are concerning for multifocal septic arthropathy and osteomyelitis. Superimposed neuropathic arthropathy is not excluded. The talus and calcaneus appear spared. 2. Extensive cellulitis without obvious abscess. There is some nonenhancement along the midfoot concerning for tissue necrosis. 3. 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 4. No tendon tear or tenosynovitis is seen. S/p I&D of left foot abscess Podiatry is following Continue with Zosyn and vancomycin Infectious diseases following Acute renal failure Improving Continue with IV fluid BMP daily Diabetes type 2: Uncontrolled Endocrinology is following Lantus 30 units twice daily Sliding scale Hypokalemia: Replaced Hyponatremia: Continue with IV fluids BMP in the morning DVT prophylaxis: DVT prophylaxis: Heparin subcu daily 11/08 Patient had low-grade fever yesterday denies any chest pain shortness of breath or nausea reported mild to moderate foot pain Continue cefazolin IV Add Dilaudid 1 mg IV once when the patient get wound VAC on and continue Percocet as needed Hypokalemia replaced with potassium chloride Blood sugar is okay continue sliding scale coverage and current dose of Lantus 11/09 Patient is better controlled today patient had low-grade fever 99.4 yesterday and 99.2 today statuspost wound VAC done yesterday Continue IV cefazolin and follow podiatry recommendations Mild hypokalemia 3.1 replaced with potassium chloride patient preferred to get IV potassium chloride instead of oral state that ordered irritate his stomach I will order 40 mEq of IV potassium Blood sugars controlled continue current dose of insulin Continue CBC and BMP check daily 11/10 Clinically patient denies any foot pain chest pain abdominal pain shortness of breath nausea or dizziness On exam more swelling of left foot continue wound VAC on IV antibiotics and follow podiatry and ID recommendations Blood sugar is not well controlled insulin management per endocrinology Mild hypokalemia replaced with potassium chloride 11/11 Patient feeling okay had low-grade fever 99.2 yesterday denies any pain shortness of breath nausea or dizziness On the schedule to have I&D by podiatry today Continue IV antibiotics Blood sugar is okay continue current dose of insulin 11/12 Patient reports intermittent nausea each time he eats sometimes associated with vomiting and abdominal discomfort might be gastroparesis secondary to uncontrolled diabetes patient had EGD done as outpatient state that did not show any significant problem I will order gastric emptying study for possible gastroparesis Patient had fever spike 102.4 yesterday antibiotics per ID recommendations Follow podiatry recommendations Hyperglycemia increase Lantus dose to 25 units subcu and continue sliding scale coverage Hypokalemia replaced with potassium chloride 11/13 No acute issues overnight Vital signs stable Blood sugar is better controlled continue current dose of insulin Continue IV antibiotics and follow consults recommendations Pending gastric emptying study and consider starting the patient on Reglan if study shows gastroparesis 11/14 Patient feeling okay slightly less nauseated today denies any abdominal pain constipation diarrhea shortness of breath or chest pain Vital signs stable Gastric emptying study done yesterday report reviewed findings of gastroparesis likely secondary touncontrolled diabetes start the patient on Reglan 10 mg IV half an hour before each meal Blood sugar better controlled insulin management per endocrinology Follow ID and podiatry recommendations 11/15 Patient complain of some abdominal discomfort without nausea and vomiting constipation or diarrhea had low-grade fever 99.6 yesterday denies any chest pain or shortness of breath I will order CT abdomen and pelvis to rule out any acute issues and continue IV Reglan Blood sugar is better controlled continue insulin dose Antibiotics and wound VAC per ID and podiatry 11/16 Patient feeling okay still having some abdominal discomfort intermittent nausea without vomiting orfever Vital signs stable CT abdomen and pelvis done yesterday report reviewed 1. Single bilateral punctate nonobstructing renal calculi. No evidence of an obstructive uropathy. 2. Moderate-large amount of retained stool in the proximal colon and hmccf-bv-gribuafa amount of retained stool in the distal colon, which could be related to a mild colonic ileus. No evidence of a bowel obstruction. 3. Mild pelvic and inguinal lymphadenopathy that may be reactive. 4. Questionable sludge or gallstones in the gallbladder. No evidence of cholecystitis. 5. Trace pleural effusions and mild atelectasis in both lung bases. DSS/ges Continue Reglan IV another 24 hours as gave the patient Fleet enema once Continue IV antibiotics per ID recommendations and follow podiatry recommendations Blood sugar is good continue current dose of insulin and sliding scale coverage 11/17 In summary 55-year-old male history of uncontrolled diabetes get admitted to the hospital with diagnosis of cellulitis left leg associated with kidney injury For infection started on IV antibiotics management per ID and patient had IND then wound VAC per podiatry status post DC wound VAC today plan for foot surgery tomorrow During hospitalization patient reported intermittent nausea and vomiting associated with mild abdominal discomfort CT abdomen and pelvis done did not show any acute findings and gastric emptying study showed findings of gastroparesis patient had Reglan 48 hours with slight improvement I will DC Regl an today continue small portion meals to avoid any abdominal distention BUN/creatinine improved patient did not require any renal replacement therapy Currently patient feeling okay no acute issues overnight vital signs stable Continue current treatment and plan for foot surgery tomorrow by podiatry SUBJECTIVE: Chief Complaint: Left foot pain and swelling History of Presenting Illness: More Kingsley is a 55 y.o. male is known for hypertension there is mellitus hyperlipidemia chronic kidney disease stage III with creatinine baseline is 1.3 and GFR 40 to 45% presumed diabetic nephropathy, is here due to swelling and pain in the left for this for the past 2 to 3 days, has also ulceron the right foot, reported feeling fatigue loss of appetite headaches, denies fevers or chills wasevaluated emergency department blood glucose elevated close to 400, elevated lactic acid and ketones, leukocytosis and acute kidney injury his creatinine is 1.8, tachycardia with frequent PVCs Review of Systems: 10 systems reviewed and negative other than noted in HPI OBJECTIVE: Physical Examination: BP (!) 154/92 Pulse 97 Temp 98.4 F (36.9 C) (Oral) Resp 16 Ht 5' 10 Wt 105 kg (231 lb 7.7 oz) SpO2 94% BMI 33.21 kg/m General Appearance: Alert, well appearing, and in no acute distress. HEENT: Head - Normocephalic, atraumatic. Eyes - JADE bilaterally and EOMI. Ears - normal external appearance, hearing intact. Nose - normal, no erythema. Throat - mucous membranes moist, pharynx without lesions. Neck: Supple, trachea midline. Cardiovascular: S1, S2 normal. No murmurs, rubs, clicks or gallops appreciated. No pedal edema. Respiratory: Lungs clear to auscultation, no wheezes, rales or rhonchi heard. Abdomen: Soft, non-tender, normal bowel sounds, non-distended, no masses or organomegaly appreciated. Neurological: Grossly normal motor and sensory exam. No focal deficits. Musculoskeletal: No joint tenderness, deformity or swelling. Skin: Normal coloration and turgor. No rashes. Psych: Alert, oriented x 3. Normal mood and affect. Laboratory and Additional Data Reviewed: Results/Medications Reviewed 11/17/20 10:29 AM: Results from last 7 days Lab Units 11/17/20 0627 11/16/20 0603 11/15/20 0519 SODIUM mmol/L 136 138 137 POTASSIUM mmol/L 3.9 3.7 3.7 CHLORIDE mmol/L 105 104 106 BUN mg/dL 11 10 14 CREATININE mg/dL 0.94 1.03 0.89 GLUCOSE mg/dL 86 103* 139* CALCIUM mg/dL 8.6 8.6 8.4 Results from last 7 days Lab Units 11/17/20 0627 11/16/20 0603 11/15/20 0519 WBC K/mcL 9.40 9.26 8.97 HGB g/dL 11.0* 10.8* 10.5* HCT % 36.4* 35.7* 34.1* PLT K/mcL 644* 658* 633* Invalid input(s): LABALBU CULTURES: Reviewed 10:29 AM IMAGING: Reviewed 10:29 AM * Braeden Conte DPM - 11/17/2020 9:39 AM EST Progress Inpatient Follow-up 11/17/2020 Braeden Conte DPM [facility] Patient: More Kingsley Jr. Date of : 1965 (55 y.o.) PCP: Cheng Staples CNP ASSESSMENT/PLAN: More Kingsley 55 y.o. male with history of status post I&D of left foot abscess. New medial left ankle abscess. Plan: I remove the wound VAC today because the white cell count was trending upward and patient wasfeeling increased pain on the medial ankle. When I remove the VAC there was copious amounts of pus coming from the dorsal foot wound seem to be originating from the medial ankle. Due to the bogginessof the medial ankle I feel that a OR debridement opening it up would be best flushed out more infect ion. Patient be n.p.o. as of midnight tonight we will stop the heparin patient up for surgery tomorrow. No new Assessment & Plan notes have been filed under this hospital service since the last note was generated. Service: Podiatry SUBJECTIVE: History Since Last Visit: Patient is a 55-year-old male seen at the bedside who is had a surgical I&D of the left foot by Dr. Cherry last week unfortunately he has been developing creasing pain along the medial side of the ankle with a boggy area concerning for the infection spreading. Patient is in need of another OR surgical debridement. Review of Systems: OBJECTIVE: Physical Examination: Integument-there is increased erythema and edema along the medial side of the left ankle. There appears to a underlying boggy abscess. When I removed the VAC from the dorsal left foot wound there waspurulent discharge coming from it. Neuro-diminished left foot Vascular - Dp and PT pulses are palpable in the left foot BP (!) 154/92 Pulse 97 Temp 98.4 F (36.9 C) (Oral) Resp 16 Ht 5' 10 Wt 105 kg (231 lb 7.7 oz) SpO2 94% BMI 33.21 kg/m Laboratory and Additional Data Reviewed: Reviewed:[id number]} * Marcella Bell MD - 11/16/2020 7:11 PM EST Patient Name: More Kingsley Jr. Admit Date: MR #: [id number] : 1965 Physicians: Cheng Staples CNP (Family); No ref. provider found (Referring) Assessment: Patient with 1. Left foot abscess, with MSSA 2. Osteomyelitis with MSSA 3. Uncontrolled diabetes. 4. Abdominal pain. 5. Constipation. Plan. Continue patient on current therapyn. Continue patient on IV cefazolin. I reviewed labs, including cultures, with MSSA, and be strep. I appreciate content production specialist evaluation. Patient needs incision and drainage of left foot abscess Dressing according to content production specialist recommendation Endocrinology evaluation for adequate blood sugar control We will continue to follow with you. Not on wound VAC dressing. Status post debridement. Reviewed bone cultures with MSSA. I reviewed labs. I reviewed CT scan of the abdomen and pelvis, with moderate large amount of retained stool in the proximal colon. Subjective: I have reviewed patient again, no fever, no chills, patient wound dressed, had T-max of98.6. Patient today having a good bowel movement. Abdominal pain has improved. Exam: PACU Vitals 11/16/20 1601 BP: (!) 151/91 Pulse: 89 Resp: 16 Temp: 98.5 F (36.9 C) SpO2: 94% Allergies: Patient has no known allergies. Current Facility-Administered Medications: acetaminophen (TYLENOL) tablet 650 mg, 650 mg, Oral, Q6H PRN, Jennifer Gamble CNP, 650 mg at 11/11/20 2343 ceFAZolin (ANCEF) IVPB 2 g (premix), 2,000 mg, Intravenous, Q8H, Mady Russell CNP, Last Rate: 100 mL/hr at 11/16/20 1556, 2,000 mg at 11/16/20 1556 sodium chloride (PF) (NS) 0.9 % contrast line flush 10 mL, 10 mL, Intravenous, Once in imaging AND sodium chloride (PF) (NS) 0.9 % contrast line flush 10 mL, 10 mL, Intravenous, Once in imaging AND gadoterate meglumine (DOTAREM) injection 20 mL, 20 mL, Intravenous, Once in imaging, Bethanie Pinedo MD heparin (porcine) injection 5,000 Units, 5,000 Units, Subcutaneous, Q8H SANCHO, Chuyita Arias MD, 5,000 Units at 11/16/20 1557 insulin glargine (LANTUS) injection 25 Units, 25 Units, Subcutaneous, Nightly, Chuyita Arias MD, 25 Units at 11/15/20 205 insulin lispro (HumaLOG) injection 0-15 Units, 0-15 Units, Subcutaneous, at bedtime, Jack Hair CNP, 2 Units at 11/06/20 2105 insulin lispro (HumaLOG) injection 0-30 Units, 0-30 Units, Subcutaneous, QAM AC, Marvel Mcmillan MD, 0 Units at 11/16/20 0940 insulin lispro (HumaLOG) injection 0-30 Units, 0-30 Units, Subcutaneous, Daily before lunch, Marvel Mcmillan MD, 2 Units at 11/16/20 1402 insulin lispro (HumaLOG) injection 0-30 Units, 0-30 Units, Subcutaneous, Before dinner, Marvel Calero MD, 4 Units at 11/16/20 1820 ipratropium-albuteroL (DUO-NEB) 0.5-2.5 mg/3 ml nebulizer solution 3 mL, 3 mL, Inhalation, Q2H PRN,Flako Pinedo MD lactated Ringers infusion, 100 mL/hr, Intravenous, Continuous, Flako Pinedo MD, Last Rate: 100 mL/hr at 11/16/20 0938, 100 mL/hr at 11/16/20 0938 lactated Ringers infusion, 100 mL/hr, Intravenous, Continuous, Javi Barriga MD metoclopramide (REGLAN) injection 10 mg, 10 mg, Intravenous, TID AC, Chuyita Arias MD, 10 mg at 11/16/20 1729 naloxone (NARCAN) injection 0.1 mg, 0.1 mg, Intravenous, PRN AND Notify physician, , , Until Discontinued AND naloxone (NARCAN) injection 0.4 mg, 0.4 mg, Intravenous, PRN, Jean Farley MD ondansetron (ZOFRAN) injection 4 mg, 4 mg, Intravenous, Q6H PRN, Flako Pinedo MD, 4 mg at 11/11/20 205 oxyCODONE-acetaminophen (PERCOCET) 5-325 mg per tablet 1 tablet, 1 tablet, Oral, Q4H PRN, Jean Farley MD, 1 tablet at 11/16/20 0939 pantoprazole (PROTONIX) EC tablet 40 mg, 40 mg, Oral, Daily, Chuyita Arias MD, 40 mg at 11/16/20 0941 sodium chloride 0.9% (NS), 0-150 mL/hr, Intravenous, PRN, Tanja Whitmore [facility],PharmD, New Bag at 11/11/20 1615 PMH/PSH/SH/ reviewed, no change : Review of Systems: All systems were reviewed no change: Medications Reviewed. Chart Reviewed. Exam Findings: Chest: Lungs clear bilaterally, no wheezing, or rales CVS: Normal S1 & S2+, Normal Rhythm Abdomen: Obese, normal symmetry, Soft/non-tender. Benign, BS+ Extremities: +Deformities, edema and deformity of the foot, with left foot dressed currently statuspost debridement and dressing soaked. 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 Please see pictures. Justice Catheter: None IV Access: Yes I reviewed Medications. I reviewed Labs. Laboratory and Additional Data Reviewed: Laboratory 11/16/20 7:11 PM Microbiology 11/16/20 7:11 PM Radiology 11/16/20 7:11 PM XR Foot Left 3+ Views (Standard) Final Result Large ulceration overlying the dorsum of the foot. Degenerative changes. No definite bony erosion or fracture. Workstation ID: [id number] CT Abdomen Pelvis Without Contrast Final Result 1. Single bilateral punctate nonobstructing renal calculi. No evidence of an obstructive uropathy. 2. Moderate-large amount of retained stool in the proximal colon and treis-br-epkektrq amount of retained stool in the distal colon, which could be related to a mild colonic ileus. No evidence of a bowel obstruction. 3. Mild pelvic and inguinal lymphadenopathy that may be reactive. 4. Questionable sludge or gallstones in the gallbladder. No evidence of cholecystitis. 5. Trace pleural effusions and mild atelectasis in both lung bases. DSS/ges Workstation ID: [id number] Segmental Doppler Lower Extremity Arterial Final Result NM Gastric Emptying Final Result Delayed gastric emptying. Workstation ID: [id number] MR Foot Left With And Without Contrast Final Result 1. Abnormal appearance of the midfoot particularly at the 2nd through 5th TMT joints and navicular-middle cuneiform articulations. Given the nearby dorsal skin wound, and degree of inflammation, these findings are concerning for multifocal septic arthropathy and osteomyelitis. Superimposed neuropathic arthropathy is not excluded. The talus and calcaneus appear spared. 2. Extensive cellulitis without obvious abscess. There is some nonenhancement along the midfoot concerning for tissue necrosis. 3. 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 4. No tendon tear or tenosynovitis is seen. MPH/mkv Workstation ID: [id number] MR Foot Right With And Without Contrast Final Result 1. Prior forefoot resection. Cellulitis of the surgical stump is seen associated with small ulceration. 2. No abscess. 3. No MR signs of osteomyelitis. 4. Edmz-ys-jjfbpnpg mid/hindfoot osteoarthritis. 5. Remote sprains of the ATFL and deep fibers of the deltoid ligament, as above. MPH/sms Workstation ID: [id number] XR Foot Left 3+ Views (Standard) Final Result No definite plain film evidence of osteomyelitis in the right or left foot Workstation ID: [id number] XR Foot Right 3+ Views (Standard) Final Result No definite plain film evidence of osteomyelitis in the right or left foot Workstation ID: [id number] XR Comparison Import Final Result CT Comparison Import Final Result XR Chest 1 View Final Result Shallow lungs with right basilar opacity, could be atelectasis or pneumonia Workstation ID: [id number] Medications 11/16/20 7:11 PM Lab Results Component Value Date WBC 9.26 11/16/2020 HGB 10.8 (L) 11/16/2020 HCT 35.7 (L) 11/16/2020 MCV 84.2 11/16/2020 PLT 658 (H) 11/16/2020 Lab Results Component Value Date GLUCOSE 103 (H) 11/16/2020 CALCIUM 8.6 11/16/2020 NA 138 11/16/2020 K 3.7 11/16/2020 CL 104 11/16/2020 BUN 10 11/16/2020 CREATININE 1.03 11/16/2020 Problem List Items Addressed This Visit Endocrine * (Principal) Secondary DM with DKA (HCC) Relevant Medications insulin glargine (LANTUS) 100 unit/mL injection insulin glargine (LANTUS) 100 unit/mL injection insulin aspart U-100 (NovoLOG) 100 unit/mL injection insulin lispro (HumaLOG) injection 0-15 Units insulin lispro (HumaLOG) injection 0-30 Units insulin lispro (HumaLOG) injection 0-30 Units insulin lispro (HumaLOG) injection 0-30 Units insulin glargine (LANTUS) injection 25 Units Other Visit Diagnoses Uncontrolled type 2 diabetes mellitus with peripheral neuropathy (HCC) Relevant Medications insulin glargine (LANTUS) 100 unit/mL injection insulin glargine (LANTUS) 100 unit/mL injection insulin aspart U-100 (NovoLOG) 100 unit/mL injection insulin lispro (HumaLOG) injection 0-15 Units insulin lispro (HumaLOG) injection 0-30 Units insulin lispro (HumaLOG) injection 0-30 Units insulin lispro (HumaLOG) injection 0-30 Units insulin glargine (LANTUS) injection 25 Units I discussed my management plans with Patient/and or Family member, and also discussed antibiotics therapy including side effects with Patient/and or Family member. Medical Decision Making: Moderate This note is created with the assistance of a speech-recognition program. While intending to generate a document that actually reflects the content of the visit, the document can still have some errors including those of syntax and sound a- like substitutions which may escape proofreading. In such instances, actual meaning can be extrapolated by contextual derivation. * Bareden Conte DPM - 11/16/2020 11:27 AM EST Progress Inpatient Follow-up 11/16/2020 Braeden Conte DPM [facility] Patient: More Kingsley . Date of : 1965 (55 y.o.) PCP: Cheng Staples CNP ASSESSMENT/PLAN: More Kingsley 55 y.o. male with history of status post I&D left foot abscess with concern for underlying midfoot osteomyelitis. Right diabetic neuropathic foot ulcer improving ulcer. Plan: I evaluated the left foot and the intense erythema has gone down however I left the wound VACin place since it seemed to be still functioning. If his white cell count trends upward another Ale may remove the VAC tomorrow to check the wound. I am discontinue the Xeroform and starting Prismaon the right foot ulceration to be changed every third day. No new Assessment & Plan notes have been filed under this hospital service since the last note was generated. Service: Podiatry SUBJECTIVE: History Since Last Visit: Patient is a 55-year-old male seen at bedside for a right foot ulcerationand status post I&D left foot abscess. Patient's been having some lower abdominal pain in whichhe had a CT scan that shows he may be constipated. Patient denies nausea vomiting fevers or chills at this time Review of Systems: OBJECTIVE: Physical Examination: Integument-there is an ulcer on the plantar aspect of the right midfoot amputation is roughly 7 mm x 7 mm x 2 mm and is beefy red and granular, no drainage no odor no signs of infection, the skin on the dorsum of the left foot has more of a purplish hue as opposed to an intense redness. There stillis some warmth. The VAC sponge appears to be intact and functioning the dorsal midfoot. Neuro-diminished bilateral feet Musculoskeletal-patient has a right forefoot amputation and a swollen left midfoot. X-rays reviewed from yesterday of the left foot are concerning for osteomyelitis of the midfoot. BP (!) 131/91 (BP Location: Left arm, Patient Position: Sitting) Pulse 97 Temp 98.4 F (36.9 C) (Oral) Resp 18 Ht 5' 10 Wt 105 kg (231 lb 7.7 oz) SpO2 94% BMI 33.21 kg/m Laboratory and Additional Data Reviewed: Reviewed:[id number]} * Chuyita Arias MD - 11/16/2020 11:26 AM EST [facility] Medicine Inpatient H&P 11/16/2020 Chuyita Arias MD [facility] Patient: oMre Kingsley Jr. Date of : 1965 (55 y.o.) PCP: Cheng Staples, BOX PERSON Assessment More Kingsley is a 54 y.o. male is known for hypertension there is mellitus hyperlipidemia chronic kidney disease stage III with creatinine baseline is 1.3 and GFR 40 to 45% presumed diabetic nephropathy, is here due to swelling and pain in the left for this for the past 2 to 3 days, has also ulceron the right foot, reported feeling fatigue loss of appetite headaches, denies fevers or chills wasevaluated emergency department blood glucose elevated close to 400, elevated lactic acid and ketones, leukocytosis and acute kidney injury his creatinine is 1.8, tachycardia with frequent PVCs IMP -sepsis due to Left foot cellulitis and osteomyelitis -Acute kidney injury prerenal azotemia and infection related -Recurrent PVCs and often noticed bigeminy -Hypokalemia and hypophosphatemia -Lactic acidosis and mild ketosis PLAN Left foot abscess and osteomyelitis Sepsis Seen and examined Clinically better Plan of pain of left foot No fever Blood culture are negative Wound culture grew Moderate Growth Staphylococcus aureusAbnormal MRI of left foot 1. Abnormal appearance of the midfoot particularly at the 2nd through 5th TMT joints and navicular-middle cuneiform articulations. Given the nearby dorsal skin wound, and degree of inflammation, these findings are concerning for multifocal septic arthropathy and osteomyelitis. Superimposed neuropathic arthropathy is not excluded. The talus and calcaneus appear spared. 2. Extensive cellulitis without obvious abscess. There is some nonenhancement along the midfoot concerning for tissue necrosis. 3. 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 4. No tendon tear or tenosynovitis is seen. S/p I&D of left foot abscess Podiatry is following Continue with Zosyn and vancomycin Infectious diseases following Acute renal failure Improving Continue with IV fluid BMP daily Diabetes type 2: Uncontrolled Endocrinology is following Lantus 30 units twice daily Sliding scale Hypokalemia: Replaced Hyponatremia: Continue with IV fluids BMP in the morning DVT prophylaxis: DVT prophylaxis: Heparin subcu daily 11/08 Patient had low-grade fever yesterday denies any chest pain shortness of breath or nausea reported mild to moderate foot pain Continue cefazolin IV Add Dilaudid 1 mg IV once when the patient get wound VAC on and continue Percocet as needed Hypokalemia replaced with potassium chloride Blood sugar is okay continue sliding scale coverage and current dose of Lantus 11/09 Patient is better controlled today patient had low-grade fever 99.4 yesterday and 99.2 today statuspost wound VAC done yesterday Continue IV cefazolin and follow podiatry recommendations Mild hypokalemia 3.1 replaced with potassium chloride patient preferred to get IV potassium chloride instead of oral state that ordered irritate his stomach I will order 40 mEq of IV potassium Blood sugars controlled continue current dose of insulin Continue CBC and BMP check daily 11/10 Clinically patient denies any foot pain chest pain abdominal pain shortness of breath nausea or dizziness On exam more swelling of left foot continue wound VAC on IV antibiotics and follow podiatry and ID recommendations Blood sugar is not well controlled insulin management per endocrinology Mild hypokalemia replaced with potassium chloride 11/11 Patient feeling okay had low-grade fever 99.2 yesterday denies any pain shortness of breath nausea or dizziness On the schedule to have I&D by podiatry today Continue IV antibiotics Blood sugar is okay continue current dose of insulin 11/12 Patient reports intermittent nausea each time he eats sometimes associated with vomiting and abdominal discomfort might be gastroparesis secondary to uncontrolled diabetes patient had EGD done as outpatient state that did not show any significant problem I will order gastric emptying study for possible gastroparesis Patient had fever spike 102.4 yesterday antibiotics per ID recommendations Follow podiatry recommendations Hyperglycemia increase Lantus dose to 25 units subcu and continue sliding scale coverage Hypokalemia replaced with potassium chloride 11/13 No acute issues overnight Vital signs stable Blood sugar is better controlled continue current dose of insulin Continue IV antibiotics and follow consults recommendations Pending gastric emptying study and consider starting the patient on Reglan if study shows gastroparesis 11/14 Patient feeling okay slightly less nauseated today denies any abdominal pain constipation diarrhea shortness of breath or chest pain Vital signs stable Gastric emptying study done yesterday report reviewed findings of gastroparesis likely secondary touncontrolled diabetes start the patient on Reglan 10 mg IV half an hour before each meal Blood sugar better controlled insulin management per endocrinology Follow ID and podiatry recommendations 11/15 Patient complain of some abdominal discomfort without nausea and vomiting constipation or diarrhea had low-grade fever 99.6 yesterday denies any chest pain or shortness of breath I will order CT abdomen and pelvis to rule out any acute issues and continue IV Reglan Blood sugar is better controlled continue insulin dose Antibiotics and wound VAC per ID and podiatry 11/16 Patient feeling okay still having some abdominal discomfort intermittent nausea without vomiting orfever Vital signs stable CT abdomen and pelvis done yesterday report reviewed 1. Single bilateral punctate nonobstructing renal calculi. No evidence of an obstructive uropathy. 2. Moderate-large amount of retained stool in the proximal colon and [id number]-ieotmqey amount of retained stool in the distal colon, which could be related to a mild colonic ileus. No evidence of a bowel obstruction. 3. Mild pelvic and inguinal lymphadenopathy that may be reactive. 4. Questionable sludge or gallstones in the gallbladder. No evidence of cholecystitis. 5. Trace pleural effusions and mild atelectasis in both lung bases. DSS/ges Continue Reglan IV another 24 hours as gave the patient Fleet enema once Continue IV antibiotics per ID recommendations and follow podiatry recommendations Blood sugar is good continue current dose of insulin and sliding scale coverage SUBJECTIVE: Chief Complaint: Left foot pain and swelling History of Presenting Illness: More Kingsley is a 55 y.o. male is known for hypertension there is mellitus hyperlipidemia chronic kidney disease stage III with creatinine baseline is 1.3 and GFR 40 to 45% presumed diabetic nephropathy, is here due to swelling and pain in the left for this for the past 2 to 3 days, has also ulceron the right foot, reported feeling fatigue loss of appetite headaches, denies fevers or chills wasevaluated emergency department blood glucose elevated close to 400, elevated lactic acid and ketones, leukocytosis and acute kidney injury his creatinine is 1.8, tachycardia with frequent PVCs Review of Systems: 10 systems reviewed and negative other than noted in HPI OBJECTIVE: Physical Examination: BP (!) 131/91 (BP Location: Left arm, Patient Position: Sitting) Pulse 97 Temp 98.4 F (36.9 C) (Oral) Resp 18 Ht 5' 10 Wt 105 kg (231 lb 7.7 oz) SpO2 94% BMI 33.21 kg/m General Appearance: Alert, well appearing, and in no acute distress. HEENT: Head - Normocephalic, atraumatic. Eyes - JADE bilaterally and EOMI. Ears - normal external appearance, hearing intact. Nose - normal, no erythema. Throat - mucous membranes moist, pharynx without lesions. Neck: Supple, trachea midline. Cardiovascular: S1, S2 normal. No murmurs, rubs, clicks or gallops appreciated. No pedal edema. Respiratory: Lungs clear to auscultation, no wheezes, rales or rhonchi heard. Abdomen: Soft, non-tender, normal bowel sounds, non-distended, no masses or organomegaly appreciated. Neurological: Grossly normal motor and sensory exam. No focal deficits. Musculoskeletal: No joint tenderness, deformity or swelling. Skin: Normal coloration and turgor. No rashes. Psych: Alert, oriented x 3. Normal mood and affect. Laboratory and Additional Data Reviewed: Results/Medications Reviewed 11/16/20 11:26 AM: Results from last 7 days Lab Units 11/16/20 0603 11/15/20 0519 11/14/20 0322 SODIUM mmol/L 138 137 135 POTASSIUM mmol/L 3.7 3.7 4.0 CHLORIDE mmol/L 104 106 105 BUN mg/dL 10 14 14 CREATININE mg/dL 1.03 0.89 0.97 GLUCOSE mg/dL 103* 139* 153* CALCIUM mg/dL 8.6 8.4 7.9* Results from last 7 days Lab Units 11/16/20 0603 11/15/20 0519 11/14/20 0322 WBC K/mcL 9.26 8.97 10.09 HGB g/dL 10.8* 10.5* 10.0* HCT % 35.7* 34.1* 33.3* PLT K/mcL 658* 633* 583* Invalid input(s): LABALBU CULTURES: Reviewed 11:26 AM IMAGING: Reviewed 11:26 AM * Marcella Bell MD - 11/15/2020 3:38 PM EST Patient Name: More Kingsley Jr. Admit Date: MR #: [id number] : 1965 Physicians: Cheng Staples, ROSALIA (Family); No ref. provider found (Referring) Assessment: Patient with 1. Left foot abscess, with MSSA 2. Osteomyelitis with MSSA 3. Uncontrolled diabetes. 4. Abdominal pain. Plan. Continue patient on current therapyn. Continue patient on IV cefazolin. I reviewed labs, including cultures, with MSSA, and be strep. I appreciate content production specialist evaluation. Patient needs incision and drainage of left foot abscess Dressing according to content production specialist recommendation Endocrinology evaluation for adequate blood sugar control We will continue to follow with you. Not on wound VAC dressing. Status post debridement. Reviewed bone cultures with MSSA. I reviewed labs. Follow-up CT scan of the abdomen and pelvis. Subjective: Had complained of abdominal pain., no fever, no chills, patient wound dressed, had T-max of 99.6. Patient scheduled for CT scan of the abdomen and pelvis. Exam: PACU Vitals 11/15/20 1207 BP: (!) 145/95 Pulse: 83 Resp: 16 Temp: 97.9 F (36.6 C) SpO2: 95% Allergies: Patient has no known allergies. Current Facility-Administered Medications: acetaminophen (TYLENOL) tablet 650 mg, 650 mg, Oral, Q6H PRN, Jennifer Gamble CNP, 650 mg at 11/11/20 2343 ceFAZolin (ANCEF) IVPB 2 g (premix), 2,000 mg, Intravenous, Q8H, Mady Russell CNP, Last Rate: 100 mL/hr at 11/15/20 1320, 2,000 mg at 11/15/20 1320 sodium chloride (PF) (NS) 0.9 % contrast line flush 10 mL, 10 mL, Intravenous, Once in imaging AND sodium chloride (PF) (NS) 0.9 % contrast line flush 10 mL, 10 mL, Intravenous, Once in imaging AND gadoterate meglumine (DOTAREM) injection 20 mL, 20 mL, Intravenous, Once in imaging, Bethanie Pinedo MD heparin (porcine) injection 5,000 Units, 5,000 Units, Subcutaneous, Q8H SANCHO, Chuyita Arias MD, 5,000 Units at 11/15/20 1318 insulin glargine (LANTUS) injection 25 Units, 25 Units, Subcutaneous, Nightly, Chuyita Arias MD, 25 Units at 11/14/20 2121 insulin lispro (HumaLOG) injection 0-15 Units, 0-15 Units, Subcutaneous, at bedtime, Jack Hair CNP, 2 Units at 11/06/20 2105 insulin lispro (HumaLOG) injection 0-30 Units, 0-30 Units, Subcutaneous, QAM AC, Marvel Mcmillan MD, 2 Units at 11/15/20 0847 insulin lispro (HumaLOG) injection 0-30 Units, 0-30 Units, Subcutaneous, Daily before lunch, Marvel Mcmillan MD, 4 Units at 11/15/20 1313 insulin lispro (HumaLOG) injection 0-30 Units, 0-30 Units, Subcutaneous, Before dinner, Marvel Calero MD, 6 Units at 11/14/20 1744 ipratropium-albuteroL (DUO-NEB) 0.5-2.5 mg/3 ml nebulizer solution 3 mL, 3 mL, Inhalation, Q2H PRN,Flako Pinedo MD lactated Ringers infusion, 100 mL/hr, Intravenous, Continuous, Flako Pinedo MD, Last Rate: 100 mL/hr at 11/15/20 1045, 100 mL/hr at 11/15/20 1045 lactated Ringers infusion, 100 mL/hr, Intravenous, Continuous, Javi Barriga MD metoclopramide (REGLAN) injection 10 mg, 10 mg, Intravenous, TID AC, Chuyita Arias MD, 10 mg at 11/15/20 1312 naloxone (NARCAN) injection 0.1 mg, 0.1 mg, Intravenous, PRN AND Notify physician, , , Until Discontinued AND naloxone (NARCAN) injection 0.4 mg, 0.4 mg, Intravenous, PRN, Jean Farley MD ondansetron (ZOFRAN) injection 4 mg, 4 mg, Intravenous, Q6H PRN, Flako Pinedo MD, 4 mg at 11/11/202050 oxyCODONE-acetaminophen (PERCOCET) 5-325 mg per tablet 1 tablet, 1 tablet, Oral, Q4H PRN, Jean Farley MD, 1 tablet at 11/15/20 0844 pantoprazole (PROTONIX) EC tablet 40 mg, 40 mg, Oral, Daily, Chuyita Arias MD, 40 mg at 11/15/20 1318 potassium chloride SA (K-DUR,KLOR-CON) CR tablet 40 mEq, 40 mEq, Oral, Daily, Flako Pinedo MD, 40 mEq at 11/08/20 0931 sodium chloride 0.9% (NS), 0-150 mL/hr, Intravenous, PRN, Tanja Whitmore, [facility],PharmD, New Bag at 11/11/20 1615 PMH/PSH/SH/ reviewed, no change : Review of Systems: All systems were reviewed no change: Medications Reviewed. Chart Reviewed. Wound: Foot with description as in the extremities. Please see pictures. Justice Catheter: None IV Access: Yes I reviewed Medications. I reviewed Labs. Laboratory and Additional Data Reviewed: Laboratory 11/15/20 3:38 PM Microbiology 11/15/20 3:38 PM Radiology 11/15/20 3:[address] Abdomen Pelvis Without Contrast Final Result 1. Single bilateral punctate nonobstructing renal calculi. No evidence of an obstructive uropathy. 2. Moderate-large amount of retained stool in the proximal colon and fnnaa-ry-ffeljnlk amount of retained stool in the distal colon, which could be related to a mild colonic ileus. No evidence of a bowel obstruction. 3. Mild pelvic and inguinal lymphadenopathy that may be reactive. 4. Questionable sludge or gallstones in the gallbladder. No evidence of cholecystitis. 5. Trace pleural effusions and mild atelectasis in both lung bases. DSS/ges Workstation ID: [id number] Segmental Doppler Lower Extremity Arterial Final Result NM Gastric Emptying Final Result Delayed gastric emptying. Workstation ID: [id number] MR Foot Left With And Without Contrast Final Result 1. Abnormal appearance of the midfoot particularly at the 2nd through 5th TMT joints and navicular-middle cuneiform articulations. Given the nearby dorsal skin wound, and degree of inflammation, these findings are concerning for multifocal septic arthropathy and osteomyelitis. Superimposed neuropathic arthropathy is not excluded. The talus and calcaneus appear spared. 2. Extensive cellulitis without obvious abscess. There is some nonenhancement along the midfoot concerning for tissue necrosis. 3. 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 4. No tendon tear or tenosynovitis is seen. MPH/ThisNextv Workstation ID: [id number] MR Foot Right With And Without Contrast Final Result 1. Prior forefoot resection. Cellulitis of the surgical stump is seen associated with small ulceration. 2. No abscess. 3. No MR signs of osteomyelitis. 4. Ddbi-ub-xfatopns mid/hindfoot osteoarthritis. 5. Remote sprains of the ATFL and deep fibers of the deltoid ligament, as above. MPH/Dizzion Workstation ID: [id number] XR Foot Left 3+ Views (Standard) Final Result No definite plain film evidence of osteomyelitis in the right or left foot Workstation ID: [id number] XR Foot Right 3+ Views (Standard) Final Result No definite plain film evidence of osteomyelitis in the right or left foot Workstation ID: [id number] XR Comparison Import Final Result CT Comparison Import Final Result XR Chest 1 View Final Result Shallow lungs with right basilar opacity, could be atelectasis or pneumonia Workstation ID: [id number] Medications 11/15/20 3:38 PM Lab Results Component Value Date WBC 8.97 11/15/2020 HGB 10.5 (L) 11/15/2020 HCT 34.1 (L) 11/15/2020 MCV 84.2 11/15/2020 PLT 633 (H) 11/15/2020 Lab Results Component Value Date GLUCOSE 139 (H) 11/15/2020 CALCIUM 8.4 11/15/2020 NA 137 11/15/2020 K 3.7 11/15/2020 CL 106 11/15/2020 BUN 14 11/15/2020 CREATININE 0.89 11/15/2020 Problem List Items Addressed This Visit Endocrine * (Principal) Secondary DM with DKA (HCC) Relevant Medications insulin glargine (LANTUS) 100 unit/mL injection insulin glargine (LANTUS) 100 unit/mL injection insulin aspart U-100 (NovoLOG) 100 unit/mL injection insulin lispro (HumaLOG) injection 0-15 Units insulin lispro (HumaLOG) injection 0-30 Units insulin lispro (HumaLOG) injection 0-30 Units insulin lispro (HumaLOG) injection 0-30 Units insulin glargine (LANTUS) injection 25 Units Other Visit Diagnoses Uncontrolled type 2 diabetes mellitus with peripheral neuropathy (HCC) Relevant Medications insulin glargine (LANTUS) 100 unit/mL injection insulin glargine (LANTUS) 100 unit/mL injection insulin aspart U-100 (NovoLOG) 100 unit/mL injection insulin lispro (HumaLOG) injection 0-15 Units insulin lispro (HumaLOG) injection 0-30 Units insulin lispro (HumaLOG) injection 0-30 Units insulin lispro (HumaLOG) injection 0-30 Units insulin glargine (LANTUS) injection 25 Units I discussed my management plans with Patient/and or Family member, and also discussed antibiotics therapy including side effects with Patient/and or Family member. Medical Decision Making: Moderate This note is created with the assistance of a speech-recognition program. While intending to generate a document that actually reflects the content of the visit, the document can still have some errors including those of syntax and sound a- like substitutions which may escape proofreading. In such instances, actual meaning can be extrapolated by contextual derivation. Braeden Leija DPM - 11/15/2020 11:37 AM EST Progress Inpatient Follow-up 11/15/2020 Braeden Conte DPM [facility] Patient: More Kingsley Jr. Date of : 1965 (55 y.o.) PCP: Cheng Staples CNP ASSESSMENT/PLAN: More Kingsley 55 y.o. male with history of status post surgical debridement of left foot abscess doing much better. Underlying osteomyelitis versus Charcot deformity of the left midfoot. Ulcer on theright foot improving. History of diabetic neuropathy bilateral feet. Plan: Continue with wound VAC on the left foot and IV antibiotics. Patient sees Dr. Eric Stephenson his content production specialist at [facility] ([phone]) for wound care normally. Patient would like to return to his care upon discharge since his home is over [place] hour [place] a half away. Obviously coming to our wound center is not very convenient for follow-up care. Once patient is set up for his outpatient IV antibiotics and has his portable wound VAC my opinion he can be discharged early next week after Dr. Stephenson has accepted his care. No new Assessment & Plan notes have been filed under this hospital service since the last note was generated. Service: Podiatry SUBJECTIVE: History Since Last Visit: Patient is a 55-year-old male who I met over a week and a half ago for anabscess on his left forefoot. Patient had a bedside I&D and was then taken to the OR a few dayslater for surgical debridement. Patient has since been on IV antibiotics along with the wound VAC and has been making good improvement. Patient is eager to get back to his home which is [place] by [facility]. Patient denies nausea vomiting fevers or chills Pending Lab and Radiology Results Order Current Status Bone Anaerobic Culture Preliminary result Review of Systems: OBJECTIVE: Physical Examination: The pictures taken yesterday when the wound VAC was changed shows much improvement since I initially met him. The wound seem to be granular with no signs of pus. There is no strikethrough in the dressing today and the wound VAC seem to be functioning properly. BP (!) 167/96 Pulse 90 Temp 98.4 F (36.9 C) (Oral) Resp 12 Ht 5' 10 Wt 105 kg (231 lb 7.7 oz) SpO2 94% BMI 33.21 kg/m Laboratory and Additional Data Reviewed: Reviewed:[id number]} * Chuyita Arias MD - 11/15/2020 11:19 AM EST [facility] Medicine Inpatient H&P 11/15/2020 Chuyita Arias MD [facility] Patient: More Kingsley Jr. Date of : 1965 (55 y.o.) PCP: Cheng Staples, BOX PERSON Assessment More Kingsley is a 54 y.o. male is known for hypertension there is mellitus hyperlipidemia chronic kidney disease stage III with creatinine baseline is 1.3 and GFR 40 to 45% presumed diabetic nephropathy, is here due to swelling and pain in the left for this for the past 2 to 3 days, has also ulceron the right foot, reported feeling fatigue loss of appetite headaches, denies fevers or chills wasevaluated emergency department blood glucose elevated close to 400, elevated lactic acid and ketones, leukocytosis and acute kidney injury his creatinine is 1.8, tachycardia with frequent PVCs IMP -sepsis due to Left foot cellulitis and osteomyelitis -Acute kidney injury prerenal azotemia and infection related -Recurrent PVCs and often noticed bigeminy -Hypokalemia and hypophosphatemia -Lactic acidosis and mild ketosis PLAN Left foot abscess and osteomyelitis Sepsis Seen and examined Clinically better Plan of pain of left foot No fever Blood culture are negative Wound culture grew Moderate Growth Staphylococcus aureusAbnormal MRI of left foot 1. Abnormal appearance of the midfoot particularly at the 2nd through 5th TMT joints and navicular-middle cuneiform articulations. Given the nearby dorsal skin wound, and degree of inflammation, these findings are concerning for multifocal septic arthropathy and osteomyelitis. Superimposed neuropathic arthropathy is not excluded. The talus and calcaneus appear spared. 2. Extensive cellulitis without obvious abscess. There is some nonenhancement along the midfoot concerning for tissue necrosis. 3. 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 4. No tendon tear or tenosynovitis is seen. S/p I&D of left foot abscess Podiatry is following Continue with Zosyn and vancomycin Infectious diseases following Acute renal failure Improving Continue with IV fluid BMP daily Diabetes type 2: Uncontrolled Endocrinology is following Lantus 30 units twice daily Sliding scale Hypokalemia: Replaced Hyponatremia: Continue with IV fluids BMP in the morning DVT prophylaxis: DVT prophylaxis: Heparin subcu daily 11/08 Patient had low-grade fever yesterday denies any chest pain shortness of breath or nausea reported mild to moderate foot pain Continue cefazolin IV Add Dilaudid 1 mg IV once when the patient get wound VAC on and continue Percocet as needed Hypokalemia replaced with potassium chloride Blood sugar is okay continue sliding scale coverage and current dose of Lantus 11/09 Patient is better controlled today patient had low-grade fever 99.4 yesterday and 99.2 today statuspost wound VAC done yesterday Continue IV cefazolin and follow podiatry recommendations Mild hypokalemia 3.1 replaced with potassium chloride patient preferred to get IV potassium chloride instead of oral state that ordered irritate his stomach I will order 40 mEq of IV potassium Blood sugars controlled continue current dose of insulin Continue CBC and BMP check daily 11/10 Clinically patient denies any foot pain chest pain abdominal pain shortness of breath nausea or dizziness On exam more swelling of left foot continue wound VAC on IV antibiotics and follow podiatry and ID recommendations Blood sugar is not well controlled insulin management per endocrinology Mild hypokalemia replaced with potassium chloride 11/11 Patient feeling okay had low-grade fever 99.2 yesterday denies any pain shortness of breath nausea or dizziness On the schedule to have I&D by podiatry today Continue IV antibiotics Blood sugar is okay continue current dose of insulin 11/12 Patient reports intermittent nausea each time he eats sometimes associated with vomiting and abdominal discomfort might be gastroparesis secondary to uncontrolled diabetes patient had EGD done as outpatient state that did not show any significant problem I will order gastric emptying study for possible gastroparesis Patient had fever spike 102.4 yesterday antibiotics per ID recommendations Follow podiatry recommendations Hyperglycemia increase Lantus dose to 25 units subcu and continue sliding scale coverage Hypokalemia replaced with potassium chloride 11/13 No acute issues overnight Vital signs stable Blood sugar is better controlled continue current dose of insulin Continue IV antibiotics and follow consults recommendations Pending gastric emptying study and consider starting the patient on Reglan if study shows gastroparesis 11/14 Patient feeling okay slightly less nauseated today denies any abdominal pain constipation diarrhea shortness of breath or chest pain Vital signs stable Gastric emptying study done yesterday report reviewed findings of gastroparesis likely secondary touncontrolled diabetes start the patient on Reglan 10 mg IV half an hour before each meal Blood sugar better controlled insulin management per endocrinology Follow ID and podiatry recommendations 11/15 Patient complain of some abdominal discomfort without nausea and vomiting constipation or diarrhea had low-grade fever 99.6 yesterday denies any chest pain or shortness of breath I will order CT abdomen and pelvis to rule out any acute issues and continue IV Reglan Blood sugar is better controlled continue insulin dose Antibiotics and wound VAC per ID and podiatry SUBJECTIVE: Chief Complaint: Left foot pain and swelling History of Presenting Illness: More Kingsley is a 55 y.o. male is known for hypertension there is mellitus hyperlipidemia chronic kidney disease stage III with creatinine baseline is 1.3 and GFR 40 to 45% presumed diabetic nephropathy, is here due to swelling and pain in the left for this for the past 2 to 3 days, has also ulceron the right foot, reported feeling fatigue loss of appetite headaches, denies fevers or chills wasevaluated emergency department blood glucose elevated close to 400, elevated lactic acid and ketones, leukocytosis and acute kidney injury his creatinine is 1.8, tachycardia with frequent PVCs Review of Systems: 10 systems reviewed and negative other than noted in HPI OBJECTIVE: Physical Examination: BP (!) 167/96 Pulse 90 Temp 98.4 F (36.9 C) (Oral) Resp 12 Ht 5' 10 Wt 105 kg (231 lb 7.7 oz) SpO2 94% BMI 33.21 kg/m General Appearance: Alert, well appearing, and in no acute distress. HEENT: Head - Normocephalic, atraumatic. Eyes - JADE bilaterally and EOMI. Ears - normal external appearance, hearing intact. Nose - normal, no erythema. Throat - mucous membranes moist, pharynx without lesions. Neck: Supple, trachea midline. Cardiovascular: S1, S2 normal. No murmurs, rubs, clicks or gallops appreciated. No pedal edema. Respiratory: Lungs clear to auscultation, no wheezes, rales or rhonchi heard. Abdomen: Soft, non-tender, normal bowel sounds, non-distended, no masses or organomegaly appreciated. Neurological: Grossly normal motor and sensory exam. No focal deficits. Musculoskeletal: No joint tenderness, deformity or swelling. Skin: Normal coloration and turgor. No rashes. Psych: Alert, oriented x 3. Normal mood and affect. Laboratory and Additional Data Reviewed: Results/Medications Reviewed 11/15/20 11:19 AM: Results from last 7 days Lab Units 11/15/2051811/14/2032111/13/20526 SODIUM mmol/L 137 135 135 POTASSIUM mmol/L 3.7 4.0 4.0 CHLORIDE mmol/L 106 105 105 BUN mg/dL 14 14 13 CREATININE mg/dL 0.89 0.97 0.85 GLUCOSE mg/dL 139* 153* 176* CALCIUM mg/dL 8.4 7.9* 7.8* Results from last 7 days Lab Units 11/15/2051811/14/2032111/13/20526 WBC K/mcL 8.97 10.09 10.51 HGB g/dL 10.5* 10.0* 10.1* HCT % 34.1* 33.3* 32.7* PLT K/mcL 633* 583* 545* Invalid input(s): LABALBU CULTURES: Reviewed 11:19 AM IMAGING: Reviewed 11:19 AM * Marcella Bell MD - 11/14/2020 5:05 PM EST Patient Name: More Kingsley Jr. Admit Date: MR #: [id number] : 1965 Physicians: Cheng Staples CNP (Family); No ref. provider found (Referring) Assessment: Patient with 1. Left foot abscess, with MSSA 2. Osteomyelitis with MSSA 3. Uncontrolled diabetes. Plan. Continue patient on current therapyn. Continue patient on IV cefazolin. I reviewed labs, including cultures, with MSSA, and be strep. I appreciate content production specialist evaluation. Patient needs incision and drainage of left foot abscess Dressing according to content production specialist recommendation Endocrinology evaluation for adequate blood sugar control We will continue to follow with you. Not on wound VAC dressing. Status post debridement. Reviewed bone cultures with MSSA. I reviewed labs. Subjective: Patient seen today, with no new symptoms, no fever, T-max has been 98.2. Exam: PACU Vitals 11/14/20 1654 BP: (!) 154/90 Pulse: 94 Resp: 16 Temp: 98 F (36.7 C) SpO2: 97% Allergies: Patient has no known allergies. Current Facility-Administered Medications: acetaminophen (TYLENOL) tablet 650 mg, 650 mg, Oral, Q6H PRN, Jennifer Gamble CNP, 650 mg at 11/11/20 2343 ceFAZolin (ANCEF) IVPB 2 g (premix), 2,000 mg, Intravenous, Q8H, Mady Russell CNP, Last Rate: 100 mL/hr at 11/14/20 1356, 2,000 mg at 11/14/20 1356 sodium chloride (PF) (NS) 0.9 % contrast line flush 10 mL, 10 mL, Intravenous, Once in imaging AND sodium chloride (PF) (NS) 0.9 % contrast line flush 10 mL, 10 mL, Intravenous, Once in imaging AND gadoterate meglumine (DOTAREM) injection 20 mL, 20 mL, Intravenous, Once in imaging, Bethanie Pinedo MD heparin (porcine) injection 5,000 Units, 5,000 Units, Subcutaneous, Q8H SANCHO, Chuyita Arias MD, 5,000 Units at 11/14/20 1359 insulin glargine (LANTUS) injection 25 Units, 25 Units, Subcutaneous, Nightly, Chuyita Arias MD, 25 Units at 11/13/20 2033 insulin lispro (HumaLOG) injection 0-15 Units, 0-15 Units, Subcutaneous, at bedtime, Jack Hair CNP, 2 Units at 11/06/20 2105 insulin lispro (HumaLOG) injection 0-30 Units, 0-30 Units, Subcutaneous, QAM AC, Marvel Mcmillan MD, 15 Units at 11/14/20 0949 insulin lispro (HumaLOG) injection 0-30 Units, 0-30 Units, Subcutaneous, Daily before lunch, Marvel Mcmillan MD, 6 Units at 11/14/20 1314 insulin lispro (HumaLOG) injection 0-30 Units, 0-30 Units, Subcutaneous, Before dinner, Marvel Calero MD, 8 Units at 11/13/20 1742 ipratropium-albuteroL (DUO-NEB) 0.5-2.5 mg/3 ml nebulizer solution 3 mL, 3 mL, Inhalation, Q2H PRN,Flako Pinedo MD lactated Ringers infusion, 100 mL/hr, Intravenous, Continuous, Flako Pinedo MD, Last Rate: 100 mL/hr at 11/14/20 1354, 100 mL/hr at 11/14/20 1354 lactated Ringers infusion, 100 mL/hr, Intravenous, Continuous, Javi Barriga MD metoclopramide (REGLAN) injection 10 mg, 10 mg, Intravenous, TID AC, Chuyita Arias MD, 10 mg at 11/14/20 1656 naloxone (NARCAN) injection 0.1 mg, 0.1 mg, Intravenous, PRN AND Notify physician, , , Until Discontinued AND naloxone (NARCAN) injection 0.4 mg, 0.4 mg, Intravenous, PRN, Jean Farley MD ondansetron (ZOFRAN) injection 4 mg, 4 mg, Intravenous, Q6H PRN, Flako Pinedo MD, 4 mg at 11/11/202050 oxyCODONE-acetaminophen (PERCOCET) 5-325 mg per tablet 1 tablet, 1 tablet, Oral, Q4H PRN, Jean Farley MD, 1 tablet at 11/14/20 0543 potassium chloride SA (K-DUR,KLOR-CON) CR tablet 40 mEq, 40 mEq, Oral, Daily, Flako Pinedo MD, 40 mEq at 11/08/20 0931 sodium chloride 0.9% (NS), 0-150 mL/hr, Intravenous, PRN, Tanja Whitmore, [facility],PharmD, New Bag at 11/11/20 1615 PMH/PSH/SH/ reviewed, no change : Review of Systems: All systems were reviewed no change: Medications Reviewed. Chart Reviewed. Exam Findings: Chest: Lungs clear bilaterally, no wheezing, or rales CVS: Normal S1 & S2+, Normal Rhythm Abdomen: Obese, normal symmetry, Soft/non-tender. Benign, BS+ Extremities: +Deformities, edema and deformity of the foot, with left foot dressed currently statuspost debridement and dressing soaked. OfF VAC dressing right foot status post transmet, and plantarulceration noted. 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 Please see pictures. Justice Catheter: None IV Access: Yes I reviewed Medications. I reviewed Labs. Laboratory and Additional Data Reviewed: Laboratory 11/14/20 5:05 PM Microbiology 11/14/20 5:05 PM Radiology 11/14/20 5:05 PM Segmental Doppler Lower Extremity Arterial Final Result NM Gastric Emptying Final Result Delayed gastric emptying. Workstation ID: [id number] MR Foot Left With And Without Contrast Final Result 1. Abnormal appearance of the midfoot particularly at the 2nd through 5th TMT joints and navicular-middle cuneiform articulations. Given the nearby dorsal skin wound, and degree of inflammation, these findings are concerning for multifocal septic arthropathy and osteomyelitis. Superimposed neuropathic arthropathy is not excluded. The talus and calcaneus appear spared. 2. Extensive cellulitis without obvious abscess. There is some nonenhancement along the midfoot concerning for tissue necrosis. 3. 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 4. No tendon tear or tenosynovitis is seen. MPH/REach Workstation ID: [id number] MR Foot Right With And Without Contrast Final Result 1. Prior forefoot resection. Cellulitis of the surgical stump is seen associated with small ulceration. 2. No abscess. 3. No MR signs of osteomyelitis. 4. Ezeh-be-pcmpgice mid/hindfoot osteoarthritis. 5. Remote sprains of the ATFL and deep fibers of the deltoid ligament, as above. MPH/Dizzion Workstation ID: [id number] XR Foot Left 3+ Views (Standard) Final Result No definite plain film evidence of osteomyelitis in the right or left foot Workstation ID: [id number] XR Foot Right 3+ Views (Standard) Final Result No definite plain film evidence of osteomyelitis in the right or left foot Workstation ID: [id number] XR Comparison Import Final Result CT Comparison Import Final Result XR Chest 1 View Final Result Shallow lungs with right basilar opacity, could be atelectasis or pneumonia Workstation ID: [id number] Medications 11/14/20 5:05 PM Lab Results Component Value Date WBC 10.09 11/14/2020 HGB 10.0 (L) 11/14/2020 HCT 33.3 (L) 11/14/2020 MCV 84.1 11/14/2020 PLT 583 (H) 11/14/2020 Lab Results Component Value Date GLUCOSE 153 (H) 11/14/2020 CALCIUM 7.9 (L) 11/14/2020 NA 135 11/14/2020 K 4.0 11/14/2020 CL 105 11/14/2020 BUN 14 11/14/2020 CREATININE 0.97 11/14/2020 Problem List Items Addressed This Visit Endocrine * (Principal) Secondary DM with DKA (HCC) Relevant Medications insulin glargine (LANTUS) 100 unit/mL injection insulin glargine (LANTUS) 100 unit/mL injection insulin aspart U-100 (NovoLOG) 100 unit/mL injection insulin lispro (HumaLOG) injection 0-15 Units insulin lispro (HumaLOG) injection 0-30 Units insulin lispro (HumaLOG) injection 0-30 Units insulin lispro (HumaLOG) injection 0-30 Units insulin glargine (LANTUS) injection 25 Units Other Visit Diagnoses Uncontrolled type 2 diabetes mellitus with peripheral neuropathy (HCC) Relevant Medications insulin glargine (LANTUS) 100 unit/mL injection insulin glargine (LANTUS) 100 unit/mL injection insulin aspart U-100 (NovoLOG) 100 unit/mL injection insulin lispro (HumaLOG) injection 0-15 Units insulin lispro (HumaLOG) injection 0-30 Units insulin lispro (HumaLOG) injection 0-30 Units insulin lispro (HumaLOG) injection 0-30 Units insulin glargine (LANTUS) injection 25 Units I discussed my management plans with Patient/and or Family member, and also discussed antibiotics therapy including side effects with Patient/and or Family member. Medical Decision Making: Moderate This note is created with the assistance of a speech-recognition program. While intending to generate a document that actually reflects the content of the visit, the document can still have some errors including those of syntax and sound a- like substitutions which may escape proofreading. In such instances, actual meaning can be extrapolated by contextual derivation. * Elise Schreiber, OTR/L - 11/14/2020 3:41 PM EST Occupational Therapy OCCUPATIONAL THERAPY TREATMENT NOTE Skilled Therapy Needs After Discharge Are Skilled Therapy Services Needed After Discharge: No DME Recommendation: Tub transfer bench(Toilet Riser w/Rails Attached) DME Rationale: Equipment required to maintain weight bearing status per physician orders, Patient'scondition creates an increased risk of safety hazard without recommended equipment Rehab Potential: Good Outcomes Measures Prior Function Daily Activity: Raw Score: 24 Prior Function Daily Activity % Impaired: 0% functionally impaired AM-PAC Daily Activity: Raw Score: 19 AM-PAC Daily Activity % Impaired: 42.80% functionally impaired Activity Tolerance Good Therapy Precautions Orthotic Devices: No Weight Bearing Status: X RLE: (heel WB only ) LLE: Non Wt bearing General Rehab Precautions: Fall risk Cognition Overall Cognitive Status: Within Functional Limits Arousal/Alertness: Appropriate responses to stimuli Attention: Attends to quiet environment Hearing Status: WFL Social Interaction: WFL Bed Mobility Supine to Sit: Modified independence(HOB elevated; use of bedrail.) Sit to Supine: Independent(HOB flat.) Functional Transfers Skilled Intervention: OT still unsure of R LE weightbearing status. Dr Cherry contacted, but no clarification yet secondary to nurse indicating pt was NWB on R foot after Dr Cherry had reported to [facility] pt can heel WB only through R foot. Pt completed treatment this date while seated at EOB independently. Exercise OT issued pt written UE HEP and reviewed/demonstrated all exercises on handout for pt. Pt was able to recall 3/5 exercises independently using handout on first attempt. Pt advised to perform UE HEP 2x/day at 20 reps each exercise as he seemed to tolerate this okay during education. Pt completed oneset x20 reps x5 bilateral UE red theraband exercises while seated at EOB. No SOB observed with exercise exertion, but pt complained of a h/o generalized pain and voiced the exercise increases his stiffness . Pt needed moderate cueing to use proper exercise technique for maximum benefit from exercise. Exercises encouraged to improve pt's activity tolerance for functional mobility and ADL's/IADL's. Interventions: Pt is unsure of discharge environment at this time. Pt does have steps to maneuver at his home and this becomes an issue if he is unable to bear weight on either LE. Pt stated he will bear weight anyway and seems noncompliant with recommendation made by physician. Pt stated it is impossible for him to heel weightbear through R foot and that he bears weight anyway when getting up to the bathroom while hospitalized. Home Living Type of Home: House Home Layout: One level, Stairs to enter with rails Bathroom Shower/Tub: Tub/shower unit Bathroom Toilet: Standard(Low toilet per pt.) Home Equipment: (Crutches) Additional Comments: Pt prefers to be called Carlitos . Prior Level of Function Level of [place]: Independent with ADLs and functional transfers Lives With: Alone ADL Assistance: Independent Homemaking Assistance: Independent Vocational: On disability Comments: Independent w/ambulation without a device, but balance impaired per pt. For complete objective data, detailed plan of care and patient education refer to: OT EVALUATION flow sheet, OT TREATMENT flow sheet, patient Plan of Care, Plan of Care progress note, and Patient Education. This note stands as the current Discharge Summary upon patient discharge from the hospital or completion of Occupational Therapy Plan of Care. * Joan Trejo LISW - 11/14/2020 2:30 PM EST DISCHARGE PLAN PROGRESS NOTE Date: 11/14/2020 Time: 2:31 PM Patient Name: More Kingsley Jr. Date of : 1965 Sex: Male Patient's chart reviewed. No indication of discharge timeframe. Patient continues with wound vac and IV antibiotics. I do not believe anything has been started for a home vac. Patient worked with therapies on 11/12. Recommendations for treatment 2-3 times a week. RLE is heel weight bearing only. LLE is non weight bearing. * Chuyita Arias MD - 11/14/2020 10:45 AM EST [facility] Medicine Inpatient H&P 11/14/2020 Chuyita Arias MD [facility] Patient: More Kingsley Jr. Date of : 1965 (55 y.o.) PCP: Cheng Staples, BOX PERSON Assessment More Kingsley is a 54 y.o. male is known for hypertension there is mellitus hyperlipidemia chronic kidney disease stage III with creatinine baseline is 1.3 and GFR 40 to 45% presumed diabetic nephropathy, is here due to swelling and pain in the left for this for the past 2 to 3 days, has also ulceron the right foot, reported feeling fatigue loss of appetite headaches, denies fevers or chills wasevaluated emergency department blood glucose elevated close to 400, elevated lactic acid and ketones, leukocytosis and acute kidney injury his creatinine is 1.8, tachycardia with frequent PVCs IMP -sepsis due to Left foot cellulitis and osteomyelitis -Acute kidney injury prerenal azotemia and infection related -Recurrent PVCs and often noticed bigeminy -Hypokalemia and hypophosphatemia -Lactic acidosis and mild ketosis PLAN Left foot abscess and osteomyelitis Sepsis Seen and examined Clinically better Plan of pain of left foot No fever Blood culture are negative Wound culture grew Moderate Growth Staphylococcus aureusAbnormal MRI of left foot 1. Abnormal appearance of the midfoot particularly at the 2nd through 5th TMT joints and navicular-middle cuneiform articulations. Given the nearby dorsal skin wound, and degree of inflammation, these findings are concerning for multifocal septic arthropathy and osteomyelitis. Superimposed neuropathic arthropathy is not excluded. The talus and calcaneus appear spared. 2. Extensive cellulitis without obvious abscess. There is some nonenhancement along the midfoot concerning for tissue necrosis. 3. 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 4. No tendon tear or tenosynovitis is seen. S/p I&D of left foot abscess Podiatry is following Continue with Zosyn and vancomycin Infectious diseases following Acute renal failure Improving Continue with IV fluid BMP daily Diabetes type 2: Uncontrolled Endocrinology is following Lantus 30 units twice daily Sliding scale Hypokalemia: Replaced Hyponatremia: Continue with IV fluids BMP in the morning DVT prophylaxis: DVT prophylaxis: Heparin subcu daily 11/08 Patient had low-grade fever yesterday denies any chest pain shortness of breath or nausea reported mild to moderate foot pain Continue cefazolin IV Add Dilaudid 1 mg IV once when the patient get wound VAC on and continue Percocet as needed Hypokalemia replaced with potassium chloride Blood sugar is okay continue sliding scale coverage and current dose of Lantus 11/09 Patient is better controlled today patient had low-grade fever 99.4 yesterday and 99.2 today statuspost wound VAC done yesterday Continue IV cefazolin and follow podiatry recommendations Mild hypokalemia 3.1 replaced with potassium chloride patient preferred to get IV potassium chloride instead of oral state that ordered irritate his stomach I will order 40 mEq of IV potassium Blood sugars controlled continue current dose of insulin Continue CBC and BMP check daily 11/10 Clinically patient denies any foot pain chest pain abdominal pain shortness of breath nausea or dizziness On exam more swelling of left foot continue wound VAC on IV antibiotics and follow podiatry and ID recommendations Blood sugar is not well controlled insulin management per endocrinology Mild hypokalemia replaced with potassium chloride 11/11 Patient feeling okay had low-grade fever 99.2 yesterday denies any pain shortness of breath nausea or dizziness On the schedule to have I&D by podiatry today Continue IV antibiotics Blood sugar is okay continue current dose of insulin 11/12 Patient reports intermittent nausea each time he eats sometimes associated with vomiting and abdominal discomfort might be gastroparesis secondary to uncontrolled diabetes patient had EGD done as outpatient state that did not show any significant problem I will order gastric emptying study for possible gastroparesis Patient had fever spike 102.4 yesterday antibiotics per ID recommendations Follow podiatry recommendations Hyperglycemia increase Lantus dose to 25 units subcu and continue sliding scale coverage Hypokalemia replaced with potassium chloride 11/13 No acute issues overnight Vital signs stable Blood sugar is better controlled continue current dose of insulin Continue IV antibiotics and follow consults recommendations Pending gastric emptying study and consider starting the patient on Reglan if study shows gastroparesis 11/14 Patient feeling okay slightly less nauseated today denies any abdominal pain constipation diarrhea shortness of breath or chest pain Vital signs stable Gastric emptying study done yesterday report reviewed findings of gastroparesis likely secondary touncontrolled diabetes start the patient on Reglan 10 mg IV half an hour before each meal Blood sugar better controlled insulin management per endocrinology Follow ID and podiatry recommendations SUBJECTIVE: Chief Complaint: Left foot pain and swelling History of Presenting Illness: More Kingsley is a 55 y.o. male is known for hypertension there is mellitus hyperlipidemia chronic kidney disease stage III with creatinine baseline is 1.3 and GFR 40 to 45% presumed diabetic nephropathy, is here due to swelling and pain in the left for this for the past 2 to 3 days, has also ulceron the right foot, reported feeling fatigue loss of appetite headaches, denies fevers or chills wasevaluated emergency department blood glucose elevated close to 400, elevated lactic acid and ketones, leukocytosis and acute kidney injury his creatinine is 1.8, tachycardia with frequent PVCs Review of Systems: 10 systems reviewed and negative other than noted in HPI OBJECTIVE: Physical Examination: BP (!) 142/83 (BP Location: Left arm, Patient Position: Lying) Pulse 96 Temp 98.2 F (36.8 C) (Oral) Resp 16 Ht 5' 10 Wt 105 kg (231 lb 7.7 oz) SpO2 92% BMI 33.21 kg/m General Appearance: Alert, well appearing, and in no acute distress. HEENT: Head - Normocephalic, atraumatic. Eyes - JADE bilaterally and EOMI. Ears - normal external appearance, hearing intact. Nose - normal, no erythema. Throat - mucous membranes moist, pharynx without lesions. Neck: Supple, trachea midline. Cardiovascular: S1, S2 normal. No murmurs, rubs, clicks or gallops appreciated. No pedal edema. Respiratory: Lungs clear to auscultation, no wheezes, rales or rhonchi heard. Abdomen: Soft, non-tender, normal bowel sounds, non-distended, no masses or organomegaly appreciated. Neurological: Grossly normal motor and sensory exam. No focal deficits. Musculoskeletal: No joint tenderness, deformity or swelling. Skin: Normal coloration and turgor. No rashes. Psych: Alert, oriented x 3. Normal mood and affect. Laboratory and Additional Data Reviewed: Results/Medications Reviewed 11/14/20 10:45 AM: Results from last 7 days Lab Units 11/14/20 0322 11/13/20 0527 11/12/20 0257 SODIUM mmol/L 135 135 135 POTASSIUM mmol/L 4.0 4.0 4.1 CHLORIDE mmol/L 105 105 104 BUN mg/dL 14 13 10 CREATININE mg/dL 0.97 0.85 0.84 GLUCOSE mg/dL 153* 176* 86 CALCIUM mg/dL 7.9* 7.8* 8.0* Results from last 7 days Lab Units 11/14/20 0322 11/13/20 0527 11/12/20 0257 WBC K/mcL 10.09 10.51 13.36* HGB g/dL 10.0* 10.1* 10.1* HCT % 33.3* 32.7* 32.7* PLT K/mcL 583* 545* 497* Invalid input(s): LABALBU CULTURES: Reviewed 10:45 AM IMAGING: Reviewed 10:45 AM * Ryan Conte DPM - 11/14/2020 10:39 AM EST Progress Inpatient Follow-up 11/14/2020 Ryan Conte DPM [facility] Patient: More Kingsley Jr. Date of : 1965 (55 y.o.) PCP: Cheng Staples CNP ASSESSMENT/PLAN: More Kingsley 55 y.o. male with history of thickened left foot abscess with underlying osteomyelitis versus Charcot neuropathy now status post I&D and washout on 11/11/[address] Cherry. Patientis seen at bedside while patient is resting quietly. No complaints of nausea vomiting chest pains calf pain chills or fever. Wound is examined after removing the black sponge in the wound VAC. It appeared clean however with extensive under mining. 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 [place] on the wound VAC was approximately a third full of a bloody exudate Plan: Wound VAC was removed wound is inspected. Orders were written to replace the wound VAC. We will continue with IV antibiotics via infectious disease. No new Assessment & Plan notes have been filed under this hospital service since the last note was generated. Service: Podiatry SUBJECTIVE: History Since Last Visit: No significant events since yesterday noting the patient was out of the room when I attempted to visit him on 2 different occasions. Pending Lab and Radiology Results Order Current Status Bone Aerobic Culture Preliminary result Bone Anaerobic Culture Preliminary result Review of Systems: OBJECTIVE: Vascular: Patient has a +2 edema of the left foot. Although Dr. Kumar was able to palpate pedal pulses when he first examined him, I was unable to palpate those pulses today. Derm: Patient has a large deep wound on the dorsal lateral aspect of the left foot with surroundingerythema. There is much undermining of the wound when the black sponge is removed. A wound VAC reservoir was approximately a third full of a bloody fluid. Neuro: Patient's protective sensation is diminished. Musculoskeletal: Patient has 5 out of 5 dorsiflexion plantarflexion of the left foot at the ankle. Physical Examination: BP (!) 142/83 (BP Location: Left arm, Patient Position: Lying) Pulse 96 Temp 98.2 F (36.8 C) (Oral) Resp 16 Ht 5' 10 Wt 105 kg (231 lb 7.7 oz) SpO2 92% BMI 33.21 kg/m Laboratory and Additional Data Reviewed: Reviewed:[id number]} * Nam Briggs PA-C - 11/14/2020 9:54 AM EST Patient ID: Patient Name: More Kingsley Jr. Admit Date: 11/05/2020 MR #: [id number] : 1965 Current location: [facility] [place] Physicians: Cheng Staples CNP (Family); Dr. Pinedo (Referring) Reason for consult: Type 2 diabetes out of control Assessment/Plan: Dx: Type 2 diabetes, under poor control Currently taking as outpatient: Metformin 1000 mg twice daily Humalog insulin: 1:3 units at breakfast; 1:3 units at lunch; 1:3 units at supper Lantus insulin: 38 units at breakfast; 36 units at bedtime Current Hemoglobin A1C= Lab Results Component Value Date HGBA1C 8.2 (H) 11/05/2020 NOTES: BG and labs reviewed since admission. Patient reports taking QID insulin as an outpatient. Admitted with bilateral foot wounds and cellulitis. 11/07 BG and labs reviewed. WBC 12.03, Hgb 11.2, Hct 35.6 Plt 282k. 11/08: BG and labs reviewed. Patient's BG ranging from 107-221 over last 24 hours. Currently on lantus 35 units BID and humalog 1:3 TID with meals. Na: 135; K: 3.4; Creat: 0.98; eGFR: 88; Ca: 7.8; CBC: WBC: 12.03; Hgb: 11.2; Hct: 35.6; Plt: 282. Patient reports No complaints. 11/09: BG and labs reviewed over the past 24 hours. Current insulin doses include Lantus 35u BID, and Humalog 1:3 CHO ratio at meals, + sliding scale insulin with meals. MRI of the foot, with Extensive cellulitis, and concern for septic arthroplathy and osteomyelitis of the left foot. He cont. To be followed by ID, Dr Bell. The patient is wearing a wound VAC. 11/11: BG and labs reviewed. Insulin adjusted over the weekend secondary to hypoglycemia. Currentlyreceiving Lantus 25 units nightly, Humalog 4u TID premeal. He is returning to the OR today for further I&D of wound, therefore is NPO. He states his appetite has been somewhat poor. 11/12: BG and labs reviewed. Patient is currently getting Lantus 22u HS, and Humalog 1:4 CHO ratiosat meals. He continues on IV antibiotics and has a wound VAC to his left lower extremity. 11/13 BG and labs reviewed. Na 15, K 4.0, eGFR 99, creat 0.85, WBC 10.51, Hgb 10.1, Hct 32.7, Plt 545k. Patient not in room. 11/14: BG and labs reviewed, continue to be stable. Gastric emptying study performed yesterday revealed delayed gastric emptying, positive for gastroparesis. Patient wanting further education on dietmanagement for this. Otherwise no concerns or complaints. Blood Glucoses: 11/05: ___---___---___---309 11/06: 303---346---301---327 11/07 209---206---221---205---178 11/08: 107---109---98---105 11/09: 61----96-----88 ---82----112 11/10: 167---151---137---136 11/11: 115---106---86---104 11/12: 71---153---161---159 11/13 162---221---186---189 11/14 138--- Plan: 1. Rx changes: Adjust insulin doses. Humalog insulin: 1:3 units at breakfast; 1:3 units at lunch; 1:3 units at supper Lantus insulin: 25 units at breakfast; 25 units at bedtime Hold metformin. 11/07 Increase Lantus to 35 units BID and continue Humalog 1:3 ins:CHO ratio. Left foot with osteomyelitis on MRI. 11/08: CPM. 11/09: Lantus 32u HS, cont. 35u AM, and cont. 1:3 CHO ratios at meals. 11/11: Decrease Lantus 22 units nightly, continue Humalog 1:4 units TID with meals 11/12: CPM 11/13 CPM 11/14: Continue current insulin doses. Consult health facilities surveyor for gastroparesis diet education. 2. Education: Reviewed ABCs of diabetes management (respective goals in parentheses): A1C (7.0-8.0), blood pressure (<130/80), and cholesterol (LDL <100). Referral to Diabetes Education Referral to Nutrition therapy Subjective: 11/12: Patient sitting up in chair watching TV. He denies any complaints currently. He has not had any acute issues overnight. He is unsure how much longer he will be an inpatient. Brief HPI: Mr. Kingsley is a 54 year old male with a past medical history of type 2 DM, HTN, hyperlipidemia who presented for evaluation of left lower extremity cellulitis swelling and pain along with lesions to right foot. Patient reports no chest pain. Occasional SOB. No blurred or double vision. Nofever or chills. Patient reports occasional nausea. Patient's labs reviewed with creat 1.82, K: 3.3, Glucose 309. Patient has had diabetes for 18 years. Diagnosed in 2001. Patient is currently taking Humalog insulin: 1:3 units at breakfast; 1:3 units at lunch; 1:3 units at supper Lantus insulin: 38 units at breakfast; 36 units at bedtime along with metformin 1000 mg BID as an out patient. Patient has taken Insulin for 12-14 years. Currently the patient is receiving no insulinat this time. Blood sugar levels since admission have been ranging from 303-309 mg/dL. Current monitoring regimen: home blood tests - 1-4 times daily Complications of diabetes include: Retinopathy: Positive: Proliferative diabetic retinopathy and Intraocular injection Nephropathy: Positive Peripheral Neuropathy: Positive Autonomic Neuropathy: Negative Allergies: No Known Allergies Home Medications: Outpatient Medications Marked as Taking for the 11/05/20 encounter (Hospital Encounter): insulin aspart U-100 (NovoLOG) 100 unit/mL injection, Inject under the skin 3 (three) times a day before meals Sliding scale, patient unsure of doses. . insulin glargine (LANTUS) 100 unit/mL injection, Inject 38 Units under the skin daily AM . insulin glargine (LANTUS) 100 unit/mL injection, Inject 32 Units under the skin nightly HS . metFORMIN (GLUCOPHAGE) 1000 MG tablet, Take 1,000 mg by mouth 2 (two) times a day with meals . Current Medications: ceFAZolin (ANCEF) IVPB 2,000 mg Intravenous Q8H heparin (porcine) 5,000 Units Subcutaneous Q8H SANCHO insulin glargine 25 Units Subcutaneous Nightly lispro insulin 0-15 Units Subcutaneous at bedtime insulin lispro 0-30 Units Subcutaneous QAM AC insulin lispro 0-30 Units Subcutaneous Daily before lunch insulin lispro 0-30 Units Subcutaneous Before dinner metoclopramide (REGLAN) injection 10 mg Intravenous TID AC potassium chloride SA 40 mEq Oral Daily acetaminophen, sodium chloride (PF) AND sodium chloride (PF) AND gadoterate meglumine, ipratropium-albuteroL, nalOXone AND Notify physician AND naloxone, ondansetron, oxyCODONE-acetaminophen, sodium chloride 0.9 % Review of Systems: Review of Systems Constitutional: Positive for appetite change and fatigue. Negative for unexpected weight change. Eyes: Negative for visual disturbance. Respiratory: Negative for cough and shortness of breath. Cardiovascular: Negative for chest pain and leg swelling. Gastrointestinal: Positive for nausea. Negative for abdominal pain, constipation, diarrhea and vomiting. Endocrine: Negative for polydipsia, polyphagia and polyuria. Genitourinary: Negative for frequency and urgency. Musculoskeletal: Positive for arthralgias and joint swelling. Skin: Positive for rash (redness and swelling to LLE) and wound (multiple wounds to foot). Neurological: Negative for numbness and headaches. Psychiatric/Behavioral: Negative for agitation and sleep disturbance. The patient is not nervous/anxious. History: Past Medical History: Diagnosis Date Diabetes mellitus, type 2 (HCC) Diabetic nephropathy (HCC) Diabetic neuropathy (HCC) Diabetic retinopathy (HCC) Hyperlipidemia Hypertension Nausea and vomiting Nephropathy Past Surgical History: Procedure Laterality Date AMPUTATION FOOT Left forefoot DEBRIDEMENT AND DRESSING CHANGE Left 11/11/2020 Procedure: DEBRIDEMENT AND DRESSING CHANGE; Surgeon: Leanne Cherry DPM; Location: Main OR; Service: Podiatry HAND SURGERY Left WOUND VAC Left 11/11/2020 Procedure: APPLICATION WOUND VAC; Surgeon: Leanne Cherry DPM; Location: Main OR; Service: Podiatry Family History Problem Relation Age of Onset Diabetes Mother Diabetes Father Heart disease Father Diabetes Brother Social History Tobacco Use Smoking status: Never Smoker Smokeless tobacco: Never Used Substance Use Topics Alcohol use: Yes Comment: rarely Drug use: Never The following portions of the patient's history were reviewed and updated as appropriate: allergies, current medications, past family history, past medical history, past social history, past surgicalhistory and problem list. Objective: BP (!) 142/83 (BP Location: Left arm, Patient Position: Lying) Pulse 96 Temp 98.2 F (36.8 C) (Oral) Resp 16 Ht 5' 10 Wt 105 kg (231 lb 7.7 oz) SpO2 92% BMI 33.21 kg/m Wt Readings from Last 3 Encounters: 11/05/20 105 kg (231 lb 7.7 oz) 11/06/20 104.3 kg (230 lb) 11/05/20 105 kg (231 lb 7.7 oz) Physical Exam: 11/14: Exam deferred to reduce patient contact due to COVID-19 pandemic Physical Exam Constitutional: He is oriented to person, place, and time. He appears well- developed and well-nourished. HENT: Head: Normocephalic and atraumatic. Eyes: Pupils are equal, round, and reactive to light. Conjunctivae are normal. Neck: Normal range of motion. Neck supple. No thyromegaly present. Cardiovascular: Normal rate, regular rhythm, normal heart sounds and intact distal pulses. No murmur heard. Pulmonary/Chest: Effort normal and breath sounds normal. Abdominal: Soft. Musculoskeletal: Normal range of motion. General: Deformity (left foot) and edema present. Neurological: He is alert and oriented to person, place, and time. Skin: Skin is warm and dry. There is erythema. Redness and swelling to left lower extremity Right foot status post forefoot amputation along with multiple lesions in various phases of healing. Ulcer with packing in place right foot. Left foot Wound VAC in place. Psychiatric: He has a normal mood and affect. His behavior is normal. Judgment and thought content normal. Laboratory Review: BP (!) 142/83 (BP Location: Left arm, Patient Position: Lying) Pulse 96 Temp 98.2 F (36.8 C) (Oral) Resp 16 Ht 5' 10 Wt 105 kg (231 lb 7.7 oz) SpO2 92% BMI 33.21 kg/m Lab Results Component Value Date HGBA1C 8.2 (H) 11/05/2020 Glucose (mg/dL) Date Value 11/14/2020 153 (H) Creatinine (mg/dL) Date Value 11/14/2020 0.97 No results found for: CHOL, TRIG, HDL, LDLCALC, LDL Lab Results Component Value Date TSH 0.80 11/06/2020 No results found for: FREET4 Lab Results Component Value Date WBC 10.09 11/14/2020 HGB 10.0 (L) 11/14/2020 HCT 33.3 (L) 11/14/2020 MCV 84.1 11/14/2020 PLT 583 (H) 11/14/2020 This SmartLink has not been configured with any valid records. This SmartLink has not been configured with any valid records. Laboratory and Additional Data Reviewed: Laboratory 11/14/20 9:55 AM Medications 11/14/20 9:55 AM Transcriptions 11/14/20 9:55 AM Thank you for this consultation, we will continue to follow this patient with you. Electronically signed by: Nam Briggs PA-C, [facility] 11/14/20 9:55 AM * Marcella Bell MD - 11/13/2020 8:26 PM EST Patient Name: More Kingsley Jr. Admit Date: MR #: [id number] : 1965 Physicians: Cheng Staples CNP (Family); No ref. provider found (Referring) Assessment: Patient with 1. Left foot abscess, with MSSA 2. Suspicion for osteomyelitis 3. Uncontrolled diabetes. Plan. Continue patient on current therapyn. Continue patient on IV cefazolin. I reviewed labs, including cultures, with MSSA, and be strep. I appreciate content production specialist evaluation. Patient needs incision and drainage of left foot abscess Dressing according to content production specialist recommendation Endocrinology evaluation for adequate blood sugar control We will continue to follow with you. Patient on wound VAC dressing. Status post debridement. Follow-up bone cultures. I reviewed labs. Subjective: No new symptoms reported no fever no chills wound dressed and healing fine. Had a bloodwork Exam: PACU Vitals 11/13/20 1553 BP: (!) 144/84 Pulse: 91 Resp: 14 Temp: 98.7 F (37.1 C) SpO2: 92% Allergies: Patient has no known allergies. Current Facility-Administered Medications: acetaminophen (TYLENOL) tablet 650 mg, 650 mg, Oral, Q6H PRN, Jennifer Gamble CNP, 650 mg at 11/11/20 2343 ceFAZolin (ANCEF) IVPB 2 g (premix), 2,000 mg, Intravenous, Q8H, Mady Russell CNP, Last Rate: 100 mL/hr at 11/13/20 1554, 2,000 mg at 11/13/20 1554 sodium chloride (PF) (NS) 0.9 % contrast line flush 10 mL, 10 mL, Intravenous, Once in imaging AND sodium chloride (PF) (NS) 0.9 % contrast line flush 10 mL, 10 mL, Intravenous, Once in imaging AND gadoterate meglumine (DOTAREM) injection 20 mL, 20 mL, Intravenous, Once in imaging, Bethanie Pinedo MD heparin (porcine) injection 5,000 Units, 5,000 Units, Subcutaneous, Q8H SANCHO, Chuyita Arias MD, 5,000 Units at 11/13/20 1552 insulin glargine (LANTUS) injection 25 Units, 25 Units, Subcutaneous, Nightly, Chuyita Arias MD, 25 Units at 11/12/20 2112 insulin lispro (HumaLOG) injection 0-15 Units, 0-15 Units, Subcutaneous, at bedtime, Jack Hair CNP, 2 Units at 11/06/20 2105 insulin lispro (HumaLOG) injection 0-30 Units, 0-30 Units, Subcutaneous, QAM AC, Marvel Mcmillan MD, 3 Units at 11/10/20 1048 insulin lispro (HumaLOG) injection 0-30 Units, 0-30 Units, Subcutaneous, Daily before lunch, Marvel Mcmillan MD, 6 Units at 11/12/20 1220 insulin lispro (HumaLOG) injection 0-30 Units, 0-30 Units, Subcutaneous, Before dinner, Marvel Calero MD, 8 Units at 11/13/20 1742 ipratropium-albuteroL (DUO-NEB) 0.5-2.5 mg/3 ml nebulizer solution 3 mL, 3 mL, Inhalation, Q2H PRN,Flako Pinedo MD lactated Ringers infusion, 100 mL/hr, Intravenous, Continuous, Flako Pinedo MD, Last Rate: 100 mL/hr at 11/13/20 1825, 100 mL/hr at 11/13/201824 lactated Ringers infusion, 100 mL/hr, Intravenous, Continuous, Javi Barriga MD metoclopramide (REGLAN) injection 10 mg, 10 mg, Intravenous, TID AC, Chuyita Arias MD naloxone (NARCAN) injection 0.1 mg, 0.1 mg, Intravenous, PRN AND Notify physician, , , Until Discontinued AND naloxone (NARCAN) injection 0.4 mg, 0.4 mg, Intravenous, PRN, Jean Farley MD ondansetron (ZOFRAN) injection 4 mg, 4 mg, Intravenous, Q6H PRN, Flako Pinedo MD, 4 mg at 11/11/202050 oxyCODONE-acetaminophen (PERCOCET) 5-325 mg per tablet 1 tablet, 1 tablet, Oral, Q4H PRN, Jean Farley MD, 1 tablet at 11/11/20 1311 potassium chloride SA (K-DUR,KLOR-CON) CR tablet 40 mEq, 40 mEq, Oral, Daily, Flako Pinedo MD, 40 mEq at 11/08/20 0931 sodium chloride 0.9% (NS), 0-150 mL/hr, Intravenous, PRN, Tanja Whitmore, [facility],PharmD, New Bag at 11/11/20 1615 PMH/PSH/SH/FH reviewed, no change : Review of Systems: All systems were reviewed no change: Medications Reviewed. Chart Reviewed. Exam Findings: Chest: Lungs clear bilaterally, no wheezing, or rales CVS: Normal S1 & S2+, Normal Rhythm Abdomen: Obese, normal symmetry, Soft/non-tender. Benign, BS+ Extremities: +Deformities, edema and deformity of the foot, with left foot dressed currently statuspost debridement and dressing soaked. Patient on wound VAC today. Right foot status post transmet, and plantar ulceration noted. 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 Please see pictures. Justice Catheter: None IV Access: Yes I reviewed Medications. I reviewed Labs. Laboratory and Additional Data Reviewed: Laboratory 11/13/20 8:26 PM Microbiology 11/13/20 8:26 PM Radiology 11/13/20 8:26 PM Segmental Doppler Lower Extremity Arterial Final Result NM Gastric Emptying Final Result Delayed gastric emptying. Workstation ID: [id number] MR Foot Left With And Without Contrast Final Result 1. Abnormal appearance of the midfoot particularly at the 2nd through 5th TMT joints and navicular-middle cuneiform articulations. Given the nearby dorsal skin wound, and degree of inflammation, these findings are concerning for multifocal septic arthropathy and osteomyelitis. Superimposed neuropathic arthropathy is not excluded. The talus and calcaneus appear spared. 2. Extensive cellulitis without obvious abscess. There is some nonenhancement along the midfoot concerning for tissue necrosis. 3. 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 4. No tendon tear or tenosynovitis is seen. MPH/mkv Workstation ID: [id number] MR Foot Right With And Without Contrast Final Result 1. Prior forefoot resection. Cellulitis of the surgical stump is seen associated with small ulceration. 2. No abscess. 3. No MR signs of osteomyelitis. 4. [id number]-iw-[id number] mid/hindfoot osteoarthritis. 5. Remote sprains of the ATFL and deep fibers of the deltoid ligament, as above. MPH/sms Workstation ID: [id number] XR Foot Left 3+ Views (Standard) Final Result No definite plain film evidence of osteomyelitis in the right or left foot Workstation ID: [id number] XR Foot Right 3+ Views (Standard) Final Result No definite plain film evidence of osteomyelitis in the right or left foot Workstation ID: [id number] XR Comparison Import Final Result CT Comparison Import Final Result XR Chest 1 View Final Result Shallow lungs with right basilar opacity, could be atelectasis or pneumonia Workstation ID: [id number] Medications 11/13/20 8:26 PM Lab Results Component Value Date WBC 10.51 11/13/2020 HGB 10.1 (L) 11/13/2020 HCT 32.7 (L) 11/13/2020 MCV 82.8 11/13/2020 PLT 545 (H) 11/13/2020 Lab Results Component Value Date GLUCOSE 176 (H) 11/13/2020 CALCIUM 7.8 (L) 11/13/2020 NA 135 11/13/2020 K 4.0 11/13/2020 CL 105 11/13/2020 BUN 13 11/13/2020 CREATININE 0.85 11/13/2020 Problem List Items Addressed This Visit Endocrine * (Principal) Secondary DM with DKA (HCC) Relevant Medications insulin glargine (LANTUS) 100 unit/mL injection insulin glargine (LANTUS) 100 unit/mL injection insulin aspart U-100 (NovoLOG) 100 unit/mL injection insulin lispro (HumaLOG) injection 0-15 Units insulin lispro (HumaLOG) injection 0-30 Units insulin lispro (HumaLOG) injection 0-30 Units insulin lispro (HumaLOG) injection 0-30 Units insulin glargine (LANTUS) injection 25 Units Other Visit Diagnoses Uncontrolled type 2 diabetes mellitus with peripheral neuropathy (HCC) Relevant Medications insulin glargine (LANTUS) 100 unit/mL injection insulin glargine (LANTUS) 100 unit/mL injection insulin aspart U-100 (NovoLOG) 100 unit/mL injection insulin lispro (HumaLOG) injection 0-15 Units insulin lispro (HumaLOG) injection 0-30 Units insulin lispro (HumaLOG) injection 0-30 Units insulin lispro (HumaLOG) injection 0-30 Units insulin glargine (LANTUS) injection 25 Units I discussed my management plans with Patient/and or Family member, and also discussed antibiotics therapy including side effects with Patient/and or Family member. Medical Decision Making: Moderate This note is created with the assistance of a speech-recognition program. While intending to generate a document that actually reflects the content of the visit, the document can still have some errors including those of syntax and sound a- like substitutions which may escape proofreading. In such instances, actual meaning can be extrapolated by contextual derivation. * Chuyita Arias MD - 11/13/2020 11:32 AM EST [facility] Medicine Inpatient H&P 11/13/2020 Chuyita Arias MD [facility] Patient: More Kingsley . Date of : 1965 (55 y.o.) PCP: Cheng Staples, BOX PERSON Assessment More Kingsley is a 54 y.o. male is known for hypertension there is mellitus hyperlipidemia chronic kidney disease stage III with creatinine baseline is 1.3 and GFR 40 to 45% presumed diabetic nephropathy, is here due to swelling and pain in the left for this for the past 2 to 3 days, has also ulceron the right foot, reported feeling fatigue loss of appetite headaches, denies fevers or chills wasevaluated emergency department blood glucose elevated close to 400, elevated lactic acid and ketones, leukocytosis and acute kidney injury his creatinine is 1.8, tachycardia with frequent PVCs IMP -sepsis due to Left foot cellulitis and osteomyelitis -Acute kidney injury prerenal azotemia and infection related -Recurrent PVCs and often noticed bigeminy -Hypokalemia and hypophosphatemia -Lactic acidosis and mild ketosis PLAN Left foot abscess and osteomyelitis Sepsis Seen and examined Clinically better Plan of pain of left foot No fever Blood culture are negative Wound culture grew Moderate Growth Staphylococcus aureusAbnormal MRI of left foot 1. Abnormal appearance of the midfoot particularly at the 2nd through 5th TMT joints and navicular-middle cuneiform articulations. Given the nearby dorsal skin wound, and degree of inflammation, these findings are concerning for multifocal septic arthropathy and osteomyelitis. Superimposed neuropathic arthropathy is not excluded. The talus and calcaneus appear spared. 2. Extensive cellulitis without obvious abscess. There is some nonenhancement along the midfoot concerning for tissue necrosis. 3. 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 4. No tendon tear or tenosynovitis is seen. S/p I&D of left foot abscess Podiatry is following Continue with Zosyn and vancomycin Infectious diseases following Acute renal failure Improving Continue with IV fluid BMP daily Diabetes type 2: Uncontrolled Endocrinology is following Lantus 30 units twice daily Sliding scale Hypokalemia: Replaced Hyponatremia: Continue with IV fluids BMP in the morning DVT prophylaxis: DVT prophylaxis: Heparin subcu daily 11/08 Patient had low-grade fever yesterday denies any chest pain shortness of breath or nausea reported mild to moderate foot pain Continue cefazolin IV Add Dilaudid 1 mg IV once when the patient get wound VAC on and continue Percocet as needed Hypokalemia replaced with potassium chloride Blood sugar is okay continue sliding scale coverage and current dose of Lantus 11/09 Patient is better controlled today patient had low-grade fever 99.4 yesterday and 99.2 today statuspost wound VAC done yesterday Continue IV cefazolin and follow podiatry recommendations Mild hypokalemia 3.1 replaced with potassium chloride patient preferred to get IV potassium chloride instead of oral state that ordered irritate his stomach I will order 40 mEq of IV potassium Blood sugars controlled continue current dose of insulin Continue CBC and BMP check daily 11/10 Clinically patient denies any foot pain chest pain abdominal pain shortness of breath nausea or dizziness On exam more swelling of left foot continue wound VAC on IV antibiotics and follow podiatry and ID recommendations Blood sugar is not well controlled insulin management per endocrinology Mild hypokalemia replaced with potassium chloride 11/11 Patient feeling okay had low-grade fever 99.2 yesterday denies any pain shortness of breath nausea or dizziness On the schedule to have I&D by podiatry today Continue IV antibiotics Blood sugar is okay continue current dose of insulin 11/12 Patient reports intermittent nausea each time he eats sometimes associated with vomiting and abdominal discomfort might be gastroparesis secondary to uncontrolled diabetes patient had EGD done as outpatient state that did not show any significant problem I will order gastric emptying study for possible gastroparesis Patient had fever spike 102.4 yesterday antibiotics per ID recommendations Follow podiatry recommendations Hyperglycemia increase Lantus dose to 25 units subcu and continue sliding scale coverage Hypokalemia replaced with potassium chloride 11/13 No acute issues overnight Vital signs stable Blood sugar is better controlled continue current dose of insulin Continue IV antibiotics and follow consults recommendations Pending gastric emptying study and consider starting the patient on Reglan if study shows gastroparesis SUBJECTIVE: Chief Complaint: Left foot pain and swelling History of Presenting Illness: More Kingsley is a 55 y.o. male is known for hypertension there is mellitus hyperlipidemia chronic kidney disease stage III with creatinine baseline is 1.3 and GFR 40 to 45% presumed diabetic nephropathy, is here due to swelling and pain in the left for this for the past 2 to 3 days, has also ulceron the right foot, reported feeling fatigue loss of appetite headaches, denies fevers or chills wasevaluated emergency department blood glucose elevated close to 400, elevated lactic acid and ketones, leukocytosis and acute kidney injury his creatinine is 1.8, tachycardia with frequent PVCs Review of Systems: 10 systems reviewed and negative other than noted in HPI OBJECTIVE: Physical Examination: BP (!) 144/92 (BP Location: Right arm, Patient Position: Sitting) Pulse 90 Temp 98.3 F (36.8 C)(Oral) Resp 14 Ht 5' 10 Wt 105 kg (231 lb 7.7 oz) SpO2 92% BMI 33.21 kg/m General Appearance: Alert, well appearing, and in no acute distress. HEENT: Head - Normocephalic, atraumatic. Eyes - JADE bilaterally and EOMI. Ears - normal external appearance, hearing intact. Nose - normal, no erythema. Throat - mucous membranes moist, pharynx without lesions. Neck: Supple, trachea midline. Cardiovascular: S1, S2 normal. No murmurs, rubs, clicks or gallops appreciated. No pedal edema. Respiratory: Lungs clear to auscultation, no wheezes, rales or rhonchi heard. Abdomen: Soft, non-tender, normal bowel sounds, non-distended, no masses or organomegaly appreciated. Neurological: Grossly normal motor and sensory exam. No focal deficits. Musculoskeletal: No joint tenderness, deformity or swelling. Skin: Normal coloration and turgor. No rashes. Psych: Alert, oriented x 3. Normal mood and affect. Laboratory and Additional Data Reviewed: Results/Medications Reviewed 11/13/20 11:32 AM: Results from last 7 days Lab Units 11/13/2052611/12/2025611/11/2037 SODIUM mmol/L 135 135 137 POTASSIUM mmol/L 4.0 4.1 4.0 CHLORIDE mmol/L 105 104 106 BUN mg/dL 13 10 8 CREATININE mg/dL 0.85 0.84 1.00 GLUCOSE mg/dL 176* 86 108* CALCIUM mg/dL 7.8* 8.0* 8.1* Results from last 7 days Lab Units 11/13/2052611/12/2025611/11/20536 WBC K/mcL 10.51 13.36* 11.96* HGB g/dL 10.1* 10.1* 11.2* HCT % 32.7* 32.7* 36.2* PLT K/mcL 545* 497* 511* Invalid input(s): LABALBU CULTURES: Reviewed 11:32 AM IMAGING: Reviewed 11:32 AM * Marvel Mcmillan MD - 11/13/2020 9:22 AM EST Patient ID: Patient Name: More Kingsley Jr. Admit Date: 11/05/2020 MR #: [id number] : 1965 Current location: [facility] - [place] Physicians: Cheng Staples CNP (Family); Dr. Pinedo (Referring) Reason for consult: Type 2 diabetes out of control Assessment/Plan: Dx: Type 2 diabetes, under poor control Currently taking as outpatient: Metformin 1000 mg twice daily Humalog insulin: 1:3 units at breakfast; 1:3 units at lunch; 1:3 units at supper Lantus insulin: 38 units at breakfast; 36 units at bedtime Current Hemoglobin A1C= Lab Results Component Value Date HGBA1C 8.2 (H) 11/05/2020 NOTES: BG and labs reviewed since admission. Patient reports taking QID insulin as an outpatient. Admitted with bilateral foot wounds and cellulitis. 11/07 BG and labs reviewed. WBC 12.03, Hgb 11.2, Hct 35.6 Plt 282k. 11/08: BG and labs reviewed. Patient's BG ranging from 107-221 over last 24 hours. Currently on lantus 35 units BID and humalog 1:3 TID with meals. Na: 135; K: 3.4; Creat: 0.98; eGFR: 88; Ca: 7.8; CBC: WBC: 12.03; Hgb: 11.2; Hct: 35.6; Plt: 282. Patient reports No complaints. 11/09: BG and labs reviewed over the past 24 hours. Current insulin doses include Lantus 35u BID, and Humalog 1:3 CHO ratio at meals, + sliding scale insulin with meals. MRI of the foot, with Extensive cellulitis, and concern for septic arthroplathy and osteomyelitis of the left foot. He cont. To be followed by ID, Dr Bell. The patient is wearing a wound VAC. 11/11: BG and labs reviewed. Insulin adjusted over the weekend secondary to hypoglycemia. Currentlyreceiving Lantus 25 units nightly, Humalog 4u TID premeal. He is returning to the OR today for further I&D of wound, therefore is NPO. He states his appetite has been somewhat poor. 11/12: BG and labs reviewed. Patient is currently getting Lantus 22u HS, and Humalog 1:4 CHO ratiosat meals. He continues on IV antibiotics and has a wound VAC to his left lower extremity. 11/13 BG and labs reviewed. Na 15, K 4.0, eGFR 99, creat 0.85, WBC 10.51, Hgb 10.1, Hct 32.7, Plt 545k. Patient not in room. Blood Glucoses: 11/05: ___---___---___---309 11/06: 303---346---301---327 11/07 209---206---221---205---178 11/08: 107---109---98---105 11/09: 61----96-----88 ---82----112 11/10: 167---151---137---136 11/11: 115---106---86---104 12/22: 71---153---161---159 11/13 162---221---186---189 Plan: 1. Rx changes: Adjust insulin doses. Humalog insulin: 1:3 units at breakfast; 1:3 units at lunch; 1:3 units at supper Lantus insulin: 25 units at breakfast; 25 units at bedtime Hold metformin. 11/07 Increase Lantus to 35 units BID and continue Humalog 1:3 ins:CHO ratio. Left foot with osteomyelitis on MRI. 11/08: CPM. 11/09: Lantus 32u HS, cont. 35u AM, and cont. 1:3 CHO ratios at meals. 11/11: Decrease Lantus 22 units nightly, continue Humalog 1:4 units TID with meals 11/12: CPM 11/13 CPM 2. Education: Reviewed ABCs of diabetes management (respective goals in parentheses): A1C (7.0-8.0), blood pressure (<130/80), and cholesterol (LDL <100). Referral to Diabetes Education Referral to Nutrition therapy Subjective: 11/12: Patient sitting up in chair watching TV. He denies any complaints currently. He has not had any acute issues overnight. He is unsure how much longer he will be an inpatient. Brief HPI: Mr. Kingsley is a 54 year old male with a past medical history of type 2 DM, HTN, hyperlipidemia who presented for evaluation of left lower extremity cellulitis swelling and pain along with lesions to right foot. Patient reports no chest pain. Occasional SOB. No blurred or double vision. Nofever or chills. Patient reports occasional nausea. Patient's labs reviewed with creat 1.82, K: 3.3, Glucose 309. Patient has had diabetes for 18 years. Diagnosed in 2001. Patient is currently taking Humalog insulin: 1:3 units at breakfast; 1:3 units at lunch; 1:3 units at supper Lantus insulin: 38 units at breakfast; 36 units at bedtime along with metformin 1000 mg BID as an out patient. Patient has taken Insulin for 12-14 years. Currently the patient is receiving no insulinat this time. Blood sugar levels since admission have been ranging from 303-309 mg/dL. Current monitoring regimen: home blood tests - 1-4 times daily Complications of diabetes include: Retinopathy: Positive: Proliferative diabetic retinopathy and Intraocular injection Nephropathy: Positive Peripheral Neuropathy: Positive Autonomic Neuropathy: Negative Allergies: No Known Allergies Home Medications: Outpatient Medications Marked as Taking for the 11/05/20 encounter (Hospital Encounter): insulin aspart U-100 (NovoLOG) 100 unit/mL injection, Inject under the skin 3 (three) times a day before meals Sliding scale, patient unsure of doses. . insulin glargine (LANTUS) 100 unit/mL injection, Inject 38 Units under the skin daily AM . insulin glargine (LANTUS) 100 unit/mL injection, Inject 32 Units under the skin nightly HS . metFORMIN (GLUCOPHAGE) 1000 MG tablet, Take 1,000 mg by mouth 2 (two) times a day with meals . Current Medications: ceFAZolin (ANCEF) IVPB 2,000 mg Intravenous Q8H heparin (porcine) 5,000 Units Subcutaneous Q8H SANCHO insulin glargine 25 Units Subcutaneous Nightly lispro insulin 0-15 Units Subcutaneous at bedtime insulin lispro 0-30 Units Subcutaneous QAM AC insulin lispro 0-30 Units Subcutaneous Daily before lunch insulin lispro 0-30 Units Subcutaneous Before dinner potassium chloride SA 40 mEq Oral Daily acetaminophen, sodium chloride (PF) AND sodium chloride (PF) AND gadoterate meglumine, ipratropium-albuteroL, nalOXone AND Notify physician AND naloxone, ondansetron, oxyCODONE-acetaminophen, sodium chloride 0.9 % Review of Systems: 11/13 ROS deferred Review of Systems Constitutional: Positive for appetite change and fatigue. Negative for unexpected weight change. Eyes: Negative for visual disturbance. Respiratory: Negative for cough and shortness of breath. Cardiovascular: Negative for chest pain and leg swelling. Gastrointestinal: Positive for nausea. Negative for abdominal pain, constipation, diarrhea and vomiting. Endocrine: Negative for polydipsia, polyphagia and polyuria. Genitourinary: Negative for frequency and urgency. Musculoskeletal: Positive for arthralgias and joint swelling. Skin: Positive for rash (redness and swelling to LLE) and wound (multiple wounds to foot). Neurological: Negative for numbness and headaches. Psychiatric/Behavioral: Negative for agitation and sleep disturbance. The patient is not nervous/anxious. History: Past Medical History: Diagnosis Date Diabetes mellitus, type 2 (HCC) Diabetic nephropathy (HCC) Diabetic neuropathy (HCC) Diabetic retinopathy (HCC) Hyperlipidemia Hypertension Nausea and vomiting Nephropathy Past Surgical History: Procedure Laterality Date AMPUTATION FOOT Left forefoot DEBRIDEMENT AND DRESSING CHANGE Left 11/11/2020 Procedure: DEBRIDEMENT AND DRESSING CHANGE; Surgeon: Leanne Cherry DPM; Location: Main OR; Service: Podiatry HAND SURGERY Left WOUND VAC Left 11/11/2020 Procedure: APPLICATION WOUND VAC; Surgeon: Leanne Cherry DPM; Location: Main OR; Service: Podiatry Family History Problem Relation Age of Onset Diabetes Mother Diabetes Father Heart disease Father Diabetes Brother Social History Tobacco Use Smoking status: Never Smoker Smokeless tobacco: Never Used Substance Use Topics Alcohol use: Yes Comment: rarely Drug use: Never The following portions of the patient's history were reviewed and updated as appropriate: allergies, current medications, past family history, past medical history, past social history, past surgicalhistory and problem list. Objective: BP (!) 144/92 (BP Location: Right arm, Patient Position: Sitting) Pulse 90 Temp 98.6 F (37 C) (Oral) Resp 14 Ht 5' 10 Wt 105 kg (231 lb 7.7 oz) SpO2 92% BMI 33.21 kg/m Wt Readings from Last 3 Encounters: 11/05/20 105 kg (231 lb 7.7 oz) 11/06/20 104.3 kg (230 lb) 11/05/20 105 kg (231 lb 7.7 oz) Physical Exam: 11/13 Exam deferred Physical Exam Constitutional: He is oriented to person, place, and time. He appears well- developed and well-nourished. HENT: Head: Normocephalic and atraumatic. Eyes: Pupils are equal, round, and reactive to light. Conjunctivae are normal. Neck: Normal range of motion. Neck supple. No thyromegaly present. Cardiovascular: Normal rate, regular rhythm, normal heart sounds and intact distal pulses. No murmur heard. Pulmonary/Chest: Effort normal and breath sounds normal. Abdominal: Soft. Musculoskeletal: Normal range of motion. General: Deformity (left foot) and edema present. Neurological: He is alert and oriented to person, place, and time. Skin: Skin is warm and dry. There is erythema. Redness and swelling to left lower extremity Right foot status post forefoot amputation along with multiple lesions in various phases of healing. Ulcer with packing in place right foot. Left foot Wound VAC in place. Psychiatric: He has a normal mood and affect. His behavior is normal. Judgment and thought content normal. Laboratory Review: BP (!) 144/92 (BP Location: Right arm, Patient Position: Sitting) Pulse 90 Temp 98.6 F (37 C) (Oral) Resp 14 Ht 5' 10 Wt 105 kg (231 lb 7.7 oz) SpO2 92% BMI 33.21 kg/m Lab Results Component Value Date HGBA1C 8.2 (H) 11/05/2020 Glucose (mg/dL) Date Value 11/13/2020 176 (H) Creatinine (mg/dL) Date Value 11/13/2020 0.85 No results found for: CHOL, TRIG, HDL, LDLCALC, LDL Lab Results Component Value Date TSH 0.80 11/06/2020 No results found for: FREET4 Lab Results Component Value Date WBC 10.51 11/13/2020 HGB 10.1 (L) 11/13/2020 HCT 32.7 (L) 11/13/2020 MCV 82.8 11/13/2020 PLT 545 (H) 11/13/2020 This SmartLink has not been configured with any valid records. This SmartLink has not been configured with any valid records. Laboratory and Additional Data Reviewed: Laboratory 11/13/20 9:22 AM Medications 11/13/20 9:22 AM Transcriptions 11/13/20 9:22 AM Thank you for this consultation, we will continue to follow this patient with you. * Jai Kumar Jr., ELIE - 11/12/2020 3:23 PM EST Assessment: (Patient is a pleasant 55-year-old male with significant left foot abscess with underlying osteomyelitis versus Charcot neuroarthropathy now status post I&D and washout, date of service 1220 2019with my colleague Dr. Angela Cherry.). Plan: (Upon entering the room today, patient's wound VAC was in place however turned off. -Therefore did turn back on 125 mmHg with black foam with good suction. -Emphasized elevation with patient. -At this time, patient does need continued inpatient IV antibiotic therapy to help better differentiate his plan going forward. -Our group will follow on rounds and update plan based on clinical findings and lab findings.). Subjective no overnight events, states he is doing fine. However he does state that somebody turnedoff his wound VAC early this morning but does not remember why they did this. Temp: [97.2 F (36.2 C)-102.4 F (39.1 C)] 98.5 F (36.9 C) Heart Rate: [62-127] 100 Resp: [12-16] 16 BP: (131-182)/(75-106) 137/75 I/O last 3 completed shifts: In: 3443.3 [I.V.:3143.3; IV Piggyback:300] Out: 3160 [Urine:3100; Drains:50; Blood:10] I/O this shift: In: 1236.8 [I.V.:889.6; IV Piggyback:347.2] Out: 275 [Urine:275] Objective Vascular: DP/PT pulses are palpable +1/4 b/l. Mild lower extremity edema appreciated. Derm: Global erythema to the dorsum of his left foot with an intact wound VAC black foam with good seal. No fluctuance or bogginess in the surrounding tissue. Neuro: sharp dull is blunted. Protective sensation is diminished. Musk: Muscle strength to the lower extremity is 5/5 without any brooke deformities. No fluctuance orcrepitation present. Principal Problem: Secondary DM with DKA ([facility]) Active Problems: Type 2 diabetes mellitus with retinopathy of both eyes, with long-term current use of insulin ([facility]) * Marcella Bell MD - 11/12/2020 2:05 PM EST Patient Name: More Kingsley Jr. Admit Date: MR #: [id number] : 1965 Physicians: Cheng Staples CNP (Family); No ref. provider found (Referring) Assessment: Patient with 1. Left foot abscess, with MSSA 2. Suspicion for osteomyelitis 3. Uncontrolled diabetes. Plan. Continue patient on current therapyn. Continue patient on IV cefazolin. I reviewed labs, including cultures, with MSSA, and be strep. I appreciate content production specialist evaluation. Patient needs incision and drainage of left foot abscess I reviewed MRI of the foot, with Extensive cellulitis, and concern for septic arthroplathy and osteomyelitis of the left foot Dressing according to content production specialist recommendation Endocrinology evaluation for adequate blood sugar control We will continue to follow with you. Patient on wound VAC dressing. Status post debridement. Follow-up bone cultures. Subjective: Patient reviewed again today, with no new symptoms no fever, patient had status post debridement. Still on VAC dressing. Exam: PACU Vitals 11/12/20 1138 BP: 137/75 Pulse: (!) 100 Resp: 16 Temp: 98.5 F (36.9 C) SpO2: 90% Allergies: Patient has no known allergies. Current Facility-Administered Medications: acetaminophen (TYLENOL) tablet 650 mg, 650 mg, Oral, Q6H PRN, Jennifer Gamble CNP, 650 mg at 11/11/20 2343 ceFAZolin (ANCEF) IVPB 2 g (premix), 2,000 mg, Intravenous, Q8H, Mady Russell CNP, Last Rate: 100 mL/hr at 11/12/20 0538, 2,000 mg at 11/12/20 0538 sodium chloride (PF) (NS) 0.9 % contrast line flush 10 mL, 10 mL, Intravenous, Once in imaging AND sodium chloride (PF) (NS) 0.9 % contrast line flush 10 mL, 10 mL, Intravenous, Once in imaging AND gadoterate meglumine (DOTAREM) injection 20 mL, 20 mL, Intravenous, Once in imaging, Bethanie Pinedo MD heparin (porcine) injection 5,000 Units, 5,000 Units, Subcutaneous, Q8H [facility], Chuyita Arias MD, 5,000 Units at 11/12/20 0539 insulin glargine (LANTUS) injection 25 Units, 25 Units, Subcutaneous, Nightly, Chuyita Arias MD insulin lispro (HumaLOG) injection 0-15 Units, 0-15 Units, Subcutaneous, at bedtime, Jack Bentontspierre, ROSALIA, 2 Units at 11/06/20 2105 insulin lispro (HumaLOG) injection 0-30 Units, 0-30 Units, Subcutaneous, QAM AC, Marvel Mcmillan MD, 3 Units at 11/10/20 1048 insulin lispro (HumaLOG) injection 0-30 Units, 0-30 Units, Subcutaneous, Daily before lunch, Marvel Mcmillan MD, 6 Units at 11/12/20 1220 insulin lispro (HumaLOG) injection 0-30 Units, 0-30 Units, Subcutaneous, Before dinner, Marvel Calero MD, 4 Units at 11/10/20 1805 ipratropium-albuteroL (DUO-NEB) 0.5-2.5 mg/3 ml nebulizer solution 3 mL, 3 mL, Inhalation, Q2H PRN,Flako Pinedo MD lactated Ringers infusion, 100 mL/hr, Intravenous, Continuous, Flako Pinedo MD, Last Rate: 100 mL/hr at 11/12/20 0826, 100 mL/hr at 11/12/20 0826 lactated Ringers infusion, 100 mL/hr, Intravenous, Continuous, Javi Barriga MD naloxone (NARCAN) injection 0.1 mg, 0.1 mg, Intravenous, PRN AND Notify physician, , , Until Discontinued AND naloxone (NARCAN) injection 0.4 mg, 0.4 mg, Intravenous, PRN, Jean Farley MD ondansetron (ZOFRAN) injection 4 mg, 4 mg, Intravenous, Q6H PRN, Flako Pinedo MD, 4 mg at 11/11/202050 oxyCODONE-acetaminophen (PERCOCET) 5-325 mg per tablet 1 tablet, 1 tablet, Oral, Q4H PRN, Jean Farley MD, 1 tablet at 11/11/20 1311 potassium chloride SA (K-DUR,KLOR-CON) CR tablet 40 mEq, 40 mEq, Oral, Daily, Flako Pniedo MD, 40 mEq at 11/08/20 0931 sodium chloride 0.9% (NS), 0-150 mL/hr, Intravenous, PRN, Tanja Whitmore, [facility],PharmD, New Bag at 11/11/20 1615 PMH/PSH/SH/FH reviewed, no change : Review of Systems: All systems were reviewed no change: Medications Reviewed. Chart Reviewed. Exam Findings: Chest: Lungs clear bilaterally, no wheezing, or rales CVS: Normal S1 & S2+, Normal Rhythm Abdomen: Obese, normal symmetry, Soft/non-tender. Benign, BS+ Extremities: +Deformities, edema and deformity of the foot, with left foot dressed currently statuspost debridement and dressing soaked. Patient on wound VAC today. Right foot status post transmet, and plantar ulceration noted. 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 Please see pictures. Justice Catheter: None IV Access: Yes I reviewed Medications. I reviewed Labs. Laboratory and Additional Data Reviewed: Laboratory 11/12/20 2:05 PM Microbiology 11/12/20 2:05 PM Radiology 11/12/20 2:05 PM MR Foot Left With And Without Contrast Final Result 1. Abnormal appearance of the midfoot particularly at the 2nd through 5th TMT joints and navicular-middle cuneiform articulations. Given the nearby dorsal skin wound, and degree of inflammation, these findings are concerning for multifocal septic arthropathy and osteomyelitis. Superimposed neuropathic arthropathy is not excluded. The talus and calcaneus appear spared. 2. Extensive cellulitis without obvious abscess. There is some nonenhancement along the midfoot concerning for tissue necrosis. 3. 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 4. No tendon tear or tenosynovitis is seen. MPH/REach Workstation ID: [id number] MR Foot Right With And Without Contrast Final Result 1. Prior forefoot resection. Cellulitis of the surgical stump is seen associated with small ulceration. 2. No abscess. 3. No MR signs of osteomyelitis. 4. [id number] mid/hindfoot osteoarthritis. 5. Remote sprains of the ATFL and deep fibers of the deltoid ligament, as above. MPH/Dizzion Workstation ID: [id number] XR Foot Left 3+ Views (Standard) Final Result No definite plain film evidence of osteomyelitis in the right or left foot Workstation ID: [id number] XR Foot Right 3+ Views (Standard) Final Result No definite plain film evidence of osteomyelitis in the right or left foot Workstation ID: [id number] XR Comparison Import Final Result CT Comparison Import Final Result XR Chest 1 View Final Result Shallow lungs with right basilar opacity, could be atelectasis or pneumonia Workstation ID: [id number] NM Gastric Emptying (Results Pending) Medications 11/12/20 2:05 PM Lab Results Component Value Date WBC 13.36 (H) 11/12/2020 HGB 10.1 (L) 11/12/2020 HCT 32.7 (L) 11/12/2020 MCV 83.2 11/12/2020 PLT 497 (H) 11/12/2020 Lab Results Component Value Date GLUCOSE 86 11/12/2020 CALCIUM 8.0 (L) 11/12/2020 NA 135 11/12/2020 K 4.1 11/12/2020 CL 104 11/12/2020 BUN 10 11/12/2020 CREATININE 0.84 11/12/2020 Problem List Items Addressed This Visit Endocrine * (Principal) Secondary DM with DKA (HCC) Relevant Medications insulin glargine (LANTUS) 100 unit/mL injection insulin glargine (LANTUS) 100 unit/mL injection insulin aspart U-100 (NovoLOG) 100 unit/mL injection insulin lispro (HumaLOG) injection 0-15 Units insulin lispro (HumaLOG) injection 0-30 Units insulin lispro (HumaLOG) injection 0-30 Units insulin lispro (HumaLOG) injection 0-30 Units insulin glargine (LANTUS) injection 25 Units (Start on 11/12/2020 9:00 PM) Other Visit Diagnoses Uncontrolled type 2 diabetes mellitus with peripheral neuropathy (HCC) Relevant Medications insulin glargine (LANTUS) 100 unit/mL injection insulin glargine (LANTUS) 100 unit/mL injection insulin aspart U-100 (NovoLOG) 100 unit/mL injection insulin lispro (HumaLOG) injection 0-15 Units insulin lispro (HumaLOG) injection 0-30 Units insulin lispro (HumaLOG) injection 0-30 Units insulin lispro (HumaLOG) injection 0-30 Units insulin glargine (LANTUS) injection 25 Units (Start on 11/12/2020 9:00 PM) I discussed my management plans with Patient/and or Family member, and also discussed antibiotics therapy including side effects with Patient/and or Family member. Medical Decision Making: Moderate This note is created with the assistance of a speech-recognition program. While intending to generate a document that actually reflects the content of the visit, the document can still have some errors including those of syntax and sound a- like substitutions which may escape proofreading. In such instances, actual meaning can be extrapolated by contextual derivation. * Chuyita Arias MD - 11/12/2020 11:38 AM EST [facility] Medicine Inpatient H&P 11/12/2020 Chuyita Arias MD [facility] Patient: More Kingsley Jr. Date of : 1965 (55 y.o.) PCP: Cheng Staples, BOX PERSON Assessment More Kingsley is a 54 y.o. male is known for hypertension there is mellitus hyperlipidemia chronic kidney disease stage III with creatinine baseline is 1.3 and GFR 40 to 45% presumed diabetic nephropathy, is here due to swelling and pain in the left for this for the past 2 to 3 days, has also ulceron the right foot, reported feeling fatigue loss of appetite headaches, denies fevers or chills wasevaluated emergency department blood glucose elevated close to 400, elevated lactic acid and ketones, leukocytosis and acute kidney injury his creatinine is 1.8, tachycardia with frequent PVCs IMP -sepsis due to Left foot cellulitis and osteomyelitis -Acute kidney injury prerenal azotemia and infection related -Recurrent PVCs and often noticed bigeminy -Hypokalemia and hypophosphatemia -Lactic acidosis and mild ketosis PLAN Left foot abscess and osteomyelitis Sepsis Seen and examined Clinically better Plan of pain of left foot No fever Blood culture are negative Wound culture grew Moderate Growth Staphylococcus aureusAbnormal MRI of left foot 1. Abnormal appearance of the midfoot particularly at the 2nd through 5th TMT joints and navicular-middle cuneiform articulations. Given the nearby dorsal skin wound, and degree of inflammation, these findings are concerning for multifocal septic arthropathy and osteomyelitis. Superimposed neuropathic arthropathy is not excluded. The talus and calcaneus appear spared. 2. Extensive cellulitis without obvious abscess. There is some nonenhancement along the midfoot concerning for tissue necrosis. 3. 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 4. No tendon tear or tenosynovitis is seen. S/p I&D of left foot abscess Podiatry is following Continue with Zosyn and vancomycin Infectious diseases following Acute renal failure Improving Continue with IV fluid BMP daily Diabetes type 2: Uncontrolled Endocrinology is following Lantus 30 units twice daily Sliding scale Hypokalemia: Replaced Hyponatremia: Continue with IV fluids BMP in the morning DVT prophylaxis: DVT prophylaxis: Heparin subcu daily 11/08 Patient had low-grade fever yesterday denies any chest pain shortness of breath or nausea reported mild to moderate foot pain Continue cefazolin IV Add Dilaudid 1 mg IV once when the patient get wound VAC on and continue Percocet as needed Hypokalemia replaced with potassium chloride Blood sugar is okay continue sliding scale coverage and current dose of Lantus 11/09 Patient is better controlled today patient had low-grade fever 99.4 yesterday and 99.2 today statuspost wound VAC done yesterday Continue IV cefazolin and follow podiatry recommendations Mild hypokalemia 3.1 replaced with potassium chloride patient preferred to get IV potassium chloride instead of oral state that ordered irritate his stomach I will order 40 mEq of IV potassium Blood sugars controlled continue current dose of insulin Continue CBC and BMP check daily 11/10 Clinically patient denies any foot pain chest pain abdominal pain shortness of breath nausea or dizziness On exam more swelling of left foot continue wound VAC on IV antibiotics and follow podiatry and ID recommendations Blood sugar is not well controlled insulin management per endocrinology Mild hypokalemia replaced with potassium chloride 11/11 Patient feeling okay had low-grade fever 99.2 yesterday denies any pain shortness of breath nausea or dizziness On the schedule to have I&D by podiatry today Continue IV antibiotics Blood sugar is okay continue current dose of insulin 11/12 Patient reports intermittent nausea each time he eats sometimes associated with vomiting and abdominal discomfort might be gastroparesis secondary to uncontrolled diabetes patient had EGD done as outpatient state that did not show any significant problem I will order gastric emptying study for possible gastroparesis Patient had fever spike 102.4 yesterday antibiotics per ID recommendations Follow podiatry recommendations Hyperglycemia increase Lantus dose to 25 units subcu and continue sliding scale coverage Hypokalemia replaced with potassium chloride SUBJECTIVE: Chief Complaint: Left foot pain and swelling History of Presenting Illness: More Kingsley is a 55 y.o. male is known for hypertension there is mellitus hyperlipidemia chronic kidney disease stage III with creatinine baseline is 1.3 and GFR 40 to 45% presumed diabetic nephropathy, is here due to swelling and pain in the left for this for the past 2 to 3 days, has also ulceron the right foot, reported feeling fatigue loss of appetite headaches, denies fevers or chills wasevaluated emergency department blood glucose elevated close to 400, elevated lactic acid and ketones, leukocytosis and acute kidney injury his creatinine is 1.8, tachycardia with frequent PVCs Review of Systems: 10 systems reviewed and negative other than noted in HPI OBJECTIVE: Physical Examination: BP 137/75 Pulse (!) 100 Temp 98.5 F (36.9 C) (Oral) Resp 16 Ht 5' 10 Wt 105 kg (231 lb 7.7 oz) SpO2 90% BMI 33.21 kg/m General Appearance: Alert, well appearing, and in no acute distress. HEENT: Head - Normocephalic, atraumatic. Eyes - JADE bilaterally and EOMI. Ears - normal external appearance, hearing intact. Nose - normal, no erythema. Throat - mucous membranes moist, pharynx without lesions. Neck: Supple, trachea midline. Cardiovascular: S1, S2 normal. No murmurs, rubs, clicks or gallops appreciated. No pedal edema. Respiratory: Lungs clear to auscultation, no wheezes, rales or rhonchi heard. Abdomen: Soft, non-tender, normal bowel sounds, non-distended, no masses or organomegaly appreciated. Neurological: Grossly normal motor and sensory exam. No focal deficits. Musculoskeletal: No joint tenderness, deformity or swelling. Skin: Normal coloration and turgor. No rashes. Psych: Alert, oriented x 3. Normal mood and affect. Laboratory and Additional Data Reviewed: Results/Medications Reviewed 11/12/20 11:38 AM: Results from last 7 days Lab Units 11/12/20 0257 11/11/20 0537 11/10/20 0314 SODIUM mmol/L 135 137 136 POTASSIUM mmol/L 4.1 4.0 3.4* CHLORIDE mmol/L 104 106 104 BUN mg/dL 10 8 8 CREATININE mg/dL 0.84 1.00 0.94 GLUCOSE mg/dL 86 108* 151* CALCIUM mg/dL 8.0* 8.1* 7.9* Results from last 7 days Lab Units 11/12/20 0257 11/11/20 0537 11/10/20 0314 WBC K/mcL 13.36* 11.96* 12.21* HGB g/dL 10.1* 11.2* 11.4* HCT % 32.7* 36.2* 36.2* PLT K/mcL 497* 511* 411* Results from last 7 days Lab Units 11/05/20 2211 11/05/20 1936 TROPONIN I ng/L <15 <15 Results from last 7 days Lab Units 11/05/20 1936 ALK PHOS U/L 95 BILIRUBIN TOTAL mg/dL 0.9 TOTAL PROTEIN g/dL 8.1* ALTR U/L 16 AST U/L 26 CULTURES: Reviewed 11:38 AM IMAGING: Reviewed 11:38 AM * Iliana Aggarwal, BOAT PULLER - 11/12/2020 10:25 AM EST Physical Therapy PHYSICAL THERAPY TREATMENT NOTE Dx: L foot abcess, sepsis, LYNDA Skilled Therapy Needs After Discharge Are Skilled Therapy Services Needed After Discharge: Yes Intensity of Skilled Therapy: 2-3 days per week Anticipated Duration of Skilled Therapy: Duration 10 - 30 days DME Recommendation: None Rehab Potential: Good Outcomes Measures Prior Function - Basic Mobility Raw Score: 24 Points Prior Function - Basic Mobility % Impaired: 0% functionally impaired AM-PAC - Basic Mobility Raw Score: 14 Points AM-PAC - Basic Mobility % Impaired: 53.86% functionally impaired Activity Tolerance Therapy Precautions Orthotic Devices: No Weight Bearing Status: X RLE: (heel WB only ) LLE: Non Wt bearing General Rehab Precautions: Fall risk Balance Skilled Intervention: Pt demod static standing balance x2 ( approx 1 min each), ww, sba to improve RLE strength with adherence to LLE NWB. Pt required seated rest break inbetween standing trials d/t fatigue and c/o increased discomfort. Bed Mobility Rolling: Supervision Supine to Sit: Supervision Skilled Intervention: Pt demod good hand placement and sequencing with bed mobility. Transfers Sit to Stand: Min Stand Pivot Transfers: Contact guard Third Officer: Wheeled walker Skilled Intervention: Pt required vc for hand placement and for adherence to nwb status once standing. Pt able to take 3-4 small hops to pivot from bed to chair. Exercise Ankle Pumps: x15 RLE Straight Leg Raise: x15 doc Heelslides: x15 doc Hip Abduction: x15 doc Short Arc Quad: x15 doc Skilled Intervention: Vc provided for proper tech with therex to improve functional strength. Home Living Type of Home: House Home Layout: One level, Stairs to enter with rails Bathroom Shower/Tub: Tub/shower unit Bathroom Toilet: Standard(Low toilet per pt.) Home Equipment: (Crutches) Additional Comments: Pt prefers to be called Carlitos . Prior Level of Function Level of [place]: Independent with ADLs and functional transfers Lives With: Alone ADL Assistance: Independent Homemaking Assistance: Independent Vocational: On disability Comments: Independent w/ambulation without a device, but balance impaired per pt. For complete objective data, detailed plan of care and patient education refer to: PT EVALUATION flow sheet, PT TREATMENT flow sheet, patient Plan of Care, Plan of Care progress note, and Patient Education. This note stands as the current Discharge Summary upon patient discharge from the hospital or completion of Physical Therapy Plan of Care. Rand Vance OTA - 11/12/2020 10:10 AM EST Occupational Therapy OCCUPATIONAL THERAPY TREATMENT NOTE Skilled Therapy Needs After Discharge Are Skilled Therapy Services Needed After Discharge: No DME Recommendation: Tub transfer bench(Toilet Riser w/Rails Attached) DME Rationale: Equipment required to maintain weight bearing status per physician orders, Patient'scondition creates an increased risk of safety hazard without recommended equipment Rehab Potential: Good Outcomes Measures Prior Function Daily Activity: Raw Score: 24 Prior Function Daily Activity % Impaired: 0% functionally impaired AM-PAC Daily Activity: Raw Score: 19 AM-PAC Daily Activity % Impaired: 42.80% functionally impaired Therapy Precautions Orthotic Devices: No Weight Bearing Status: X RLE: (heel WB only ) LLE: Non Wt bearing General Rehab Precautions: Fall risk Cognition Overall Cognitive Status: Within Functional Limits Arousal/Alertness: Appropriate responses to stimuli Orientation Level: Oriented X4 Executive functioning: WFL Safety Judgment: Decreased awareness of need for safety Problem Solving: Able to problem solve independently Attention: Attends to quiet environment Hearing Status: WFL Social Interaction: Appropriate, Cooperative Skilled Intervention: Followed all commands throughout tx session. Bed Mobility Supine to Sit: Independent Sit to Supine: Independent Skilled Intervention: Seated at EOB ~17 minutes independently. Exercise Seated Exercises: Seated at EOB completed BUE red threaband exercises 1x20 in all planes to incresae BUE strength for ease with ADLs and fxl mobility. Education on completing exercises daily with pt verbalizing understanding. Home Living Type of Home: House Home Layout: One level, Stairs to enter with rails Bathroom Shower/Tub: Tub/shower unit Bathroom Toilet: Standard(Low toilet per pt.) Home Equipment: (Crutches) Additional Comments: Pt prefers to be called Carlitos . Prior Level of Function Level of [place]: Independent with ADLs and functional transfers Lives With: Alone ADL Assistance: Independent Homemaking Assistance: Independent Vocational: On disability Comments: Independent w/ambulation without a device, but balance impaired per pt. For complete objective data, detailed plan of care and patient education refer to: OT EVALUATION flow sheet, OT TREATMENT flow sheet, patient Plan of Care, Plan of Care progress note, and Patient Education. This note stands as the current Discharge Summary upon patient discharge from the hospital or completion of Occupational Therapy Plan of Care. HI * Olga Padgett RD - 11/12/2020 9:41 AM EST Nutrition Care Follow Up Monitoring and Evaluation: PO intake was 50% or greater at most meals Nutrition Diagnosis: Altered nutrition-related lab values r/t endorine dysfunction AEB POC BG 303-346 mg/dL Not Resolved Nutrition Intervention/Prescription: Continue Meal and Snacks Diet: PIERO 75 gm/meal Oral nutrition supplement : tyree twice daily Nutrition Goals: PO intake > 75% most meals Start Date:11/12/2020 Expected End Date:11/18/2020 Nutrition Education: education provided by JAMEE 11/06/20 Assessment: Pertinent clinical information: patient had I+D, placement of wound vac yesterday to L foot Current weight: 105 kg (231 lb 7.7 oz) Body mass index is 33.21 kg/m . Weight: no new weight Current diet order: PIERO 60 gm/meal Recent intake: 50-100%. Current intake Likely meets estimated needs. Patient/family comments: called patient on the phone, he is receptive to Tyree bid daily Difficulty Chewing/Swallowing: No Skin Integrity: Surgical incision L foot GI Function: WNL Physical Appearance: JAMEE CORTEZ working remotely @ this time Labs: Recent Labs 11/12/20 0257 NA 135 K 4.1 BICARB 25 CL 104 GLUCOSE 86 BUN 10 CREATININE 0.84 MG 1.8 Scheduled Meds: ceFAZolin (ANCEF) IVPB 2,000 mg Intravenous Q8H heparin (porcine) 5,000 Units Subcutaneous Q8H SANCHO insulin glargine 22 Units Subcutaneous Nightly lispro insulin 0-15 Units Subcutaneous at bedtime insulin lispro 0-30 Units Subcutaneous QAM AC insulin lispro 0-30 Units Subcutaneous Daily before lunch insulin lispro 0-30 Units Subcutaneous Before dinner potassium chloride SA 40 mEq Oral Daily Continuous Infusions: lactated Ringers 100 mL/hr (11/12/20 0826) lactated Ringers sodium chloride 0.9 % Estimated Energy Needs Total Energy Estimated Needs: 1950 kcals/day Method for Estimating Needs: MSJ x 1.3AF -500 kcals/day to promote 1# weight loss/week Total Protein Estimated Needs: 81-97 gms/day Method for Estimating Needs: 1.0-1.2 gms/kg adjusted BW Will follow-up , as needed while in-house. Olga Padgett RDN, * Olga Wheeler CNP - 11/12/2020 8:45 AM EST Patient ID: Patient Name: More Stuartkarlee Nieto Admit Date: 11/05/2020 MR #: [id number] : 1965 Current location: [facility] - [place] Physicians: Cheng Staples CNP (Family); Dr. Pinedo (Referring) Reason for consult: Type 2 diabetes out of control Assessment/Plan: Dx: Type 2 diabetes, under poor control Currently taking as outpatient: Metformin 1000 mg twice daily Humalog insulin: 1:3 units at breakfast; 1:3 units at lunch; 1:3 units at supper Lantus insulin: 38 units at breakfast; 36 units at bedtime Current Hemoglobin A1C= Lab Results Component Value Date HGBA1C 8.2 (H) 11/05/2020 NOTES: BG and labs reviewed since admission. Patient reports taking QID insulin as an outpatient. Admitted with bilateral foot wounds and cellulitis. 11/07 BG and labs reviewed. WBC 12.03, Hgb 11.2, Hct 35.6 Plt 282k. 11/08: BG and labs reviewed. Patient's BG ranging from 107-221 over last 24 hours. Currently on lantus 35 units BID and humalog 1:3 TID with meals. Na: 135; K: 3.4; Creat: 0.98; eGFR: 88; Ca: 7.8; CBC: WBC: 12.03; Hgb: 11.2; Hct: 35.6; Plt: 282. Patient reports No complaints. 11/09: BG and labs reviewed over the past 24 hours. Current insulin doses include Lantus 35u BID, and Humalog 1:3 CHO ratio at meals, + sliding scale insulin with meals. MRI of the foot, with Extensive cellulitis, and concern for septic arthroplathy and osteomyelitis of the left foot. He cont. To be followed by ID, Dr Bell. The patient is wearing a wound VAC. 11/11: BG and labs reviewed. Insulin adjusted over the weekend secondary to hypoglycemia. Currentlyreceiving Lantus 25 units nightly, Humalog 4u TID premeal. He is returning to the OR today for further I&D of wound, therefore is NPO. He states his appetite has been somewhat poor. 11/12: BG and labs reviewed. Patient is currently getting Lantus 22u HS, and Humalog 1:4 CHO ratiosat meals. He continues on IV antibiotics and has a wound VAC to his left lower extremity. Blood Glucoses: 11/05: ___---___---___---309 11/06: 303---346---301---327 11/07 209---206---221---205---178 11/08: 107---109---98---105 11/09: 61----96-----88 ---82----112 11/10: 167---151---137---136 11/11: 115---106---86---104 11/12: 71 Plan: 1. Rx changes: Adjust insulin doses. Humalog insulin: 1:3 units at breakfast; 1:3 units at lunch; 1:3 units at supper Lantus insulin: 25 units at breakfast; 25 units at bedtime Hold metformin. 11/07 Increase Lantus to 35 units BID and continue Humalog 1:3 ins:CHO ratio. Left foot with osteomyelitis on MRI. 11/08: CPM. 11/09: Lantus 32u HS, cont. 35u AM, and cont. 1:3 CHO ratios at meals. 11/11: Decrease Lantus 22 units nightly, continue Humalog 4 units TID with meals 11/12: CPM 2. Education: Reviewed ABCs of diabetes management (respective goals in parentheses): A1C (7.0-8.0), blood pressure (<130/80), and cholesterol (LDL <100). Referral to Diabetes Education Referral to Nutrition therapy Subjective: 11/12: Patient sitting up in chair watching TV. He denies any complaints currently. He has not had any acute issues overnight. He is unsure how much longer he will be an inpatient. Brief HPI: Mr. Kingsley is a 54 year old male with a past medical history of type 2 DM, HTN, hyperlipidemia who presented for evaluation of left lower extremity cellulitis swelling and pain along with lesions to right foot. Patient reports no chest pain. Occasional SOB. No blurred or double vision. Nofever or chills. Patient reports occasional nausea. Patient's labs reviewed with creat 1.82, K: 3.3, Glucose 309. Patient has had diabetes for 18 years. Diagnosed in 2001. Patient is currently taking Humalog insulin: 1:3 units at breakfast; 1:3 units at lunch; 1:3 units at supper Lantus insulin: 38 units at breakfast; 36 units at bedtime along with metformin 1000 mg BID as an out patient. Patient has taken Insulin for 12-14 years. Currently the patient is receiving no insulinat this time. Blood sugar levels since admission have been ranging from 303-309 mg/dL. Current monitoring regimen: home blood tests - 1-4 times daily Complications of diabetes include: Retinopathy: Positive: Proliferative diabetic retinopathy and Intraocular injection Nephropathy: Positive Peripheral Neuropathy: Positive Autonomic Neuropathy: Negative Allergies: No Known Allergies Home Medications: Outpatient Medications Marked as Taking for the 11/05/20 encounter (Hospital Encounter): insulin aspart U-100 (NovoLOG) 100 unit/mL injection, Inject under the skin 3 (three) times a day before meals Sliding scale, patient unsure of doses. . insulin glargine (LANTUS) 100 unit/mL injection, Inject 38 Units under the skin daily AM . insulin glargine (LANTUS) 100 unit/mL injection, Inject 32 Units under the skin nightly HS . metFORMIN (GLUCOPHAGE) 1000 MG tablet, Take 1,000 mg by mouth 2 (two) times a day with meals . Current Medications: ceFAZolin (ANCEF) IVPB 2,000 mg Intravenous Q8H heparin (porcine) 5,000 Units Subcutaneous Q8H SANCHO insulin glargine 22 Units Subcutaneous Nightly lispro insulin 0-15 Units Subcutaneous at bedtime insulin lispro 0-30 Units Subcutaneous QAM AC insulin lispro 0-30 Units Subcutaneous Daily before lunch insulin lispro 0-30 Units Subcutaneous Before dinner potassium chloride SA 40 mEq Oral Daily acetaminophen, sodium chloride (PF) AND sodium chloride (PF) AND gadoterate meglumine, ipratropium-albuteroL, nalOXone AND Notify physician AND naloxone, ondansetron, oxyCODONE-acetaminophen, sodium chloride 0.9 % Review of Systems: Review of Systems Constitutional: Positive for appetite change and fatigue. Negative for unexpected weight change. Eyes: Negative for visual disturbance. Respiratory: Negative for cough and shortness of breath. Cardiovascular: Negative for chest pain and leg swelling. Gastrointestinal: Positive for nausea. Negative for abdominal pain, constipation, diarrhea and vomiting. Endocrine: Negative for polydipsia, polyphagia and polyuria. Genitourinary: Negative for frequency and urgency. Musculoskeletal: Positive for arthralgias and joint swelling. Skin: Positive for rash (redness and swelling to LLE) and wound (multiple wounds to foot). Neurological: Negative for numbness and headaches. Psychiatric/Behavioral: Negative for agitation and sleep disturbance. The patient is not nervous/anxious. History: Past Medical History: Diagnosis Date Diabetes mellitus, type 2 (HCC) Diabetic nephropathy (HCC) Diabetic neuropathy (HCC) Diabetic retinopathy (HCC) Hyperlipidemia Hypertension Nephropathy Past Surgical History: Procedure Laterality Date AMPUTATION FOOT Left forefoot HAND SURGERY Left Family History Problem Relation Age of Onset Diabetes Mother Diabetes Father Heart disease Father Diabetes Brother Social History Tobacco Use Smoking status: Never Smoker Smokeless tobacco: Never Used Substance Use Topics Alcohol use: Yes Comment: rarely Drug use: Never The following portions of the patient's history were reviewed and updated as appropriate: allergies, current medications, past family history, past medical history, past social history, past surgicalhistory and problem list. Objective: BP (!) 149/90 (BP Location: Right arm, Patient Position: Lying) Pulse 95 Temp 98.3 F (36.8 C) (Oral) Resp 16 Ht 5' 10 Wt 105 kg (231 lb 7.7 oz) SpO2 92% BMI 33.21 kg/m Wt Readings from Last 3 Encounters: 11/05/20 105 kg (231 lb 7.7 oz) 11/06/20 104.3 kg (230 lb) 11/05/20 105 kg (231 lb 7.7 oz) Physical Exam: Physical Exam Constitutional: He is oriented to person, place, and time. He appears well- developed and well-nourished. HENT: Head: Normocephalic and atraumatic. Eyes: Pupils are equal, round, and reactive to light. Conjunctivae are normal. Neck: Normal range of motion. Neck supple. No thyromegaly present. Cardiovascular: Normal rate, regular rhythm, normal heart sounds and intact distal pulses. No murmur heard. Pulmonary/Chest: Effort normal and breath sounds normal. Abdominal: Soft. Musculoskeletal: Normal range of motion. General: Deformity (left foot) and edema present. Neurological: He is alert and oriented to person, place, and time. Skin: Skin is warm and dry. There is erythema. Redness and swelling to left lower extremity Right foot status post forefoot amputation along with multiple lesions in various phases of healing. Ulcer with packing in place right foot. Left foot Wound VAC in place. Psychiatric: He has a normal mood and affect. His behavior is normal. Judgment and thought content normal. Laboratory Review: BP (!) 149/90 (BP Location: Right arm, Patient Position: Lying) Pulse 95 Temp 98.3 F (36.8 C) (Oral) Resp 16 Ht 5' 10 Wt 105 kg (231 lb 7.7 oz) SpO2 92% BMI 33.21 kg/m Lab Results Component Value Date HGBA1C 8.2 (H) 11/05/2020 Glucose (mg/dL) Date Value 11/12/2020 86 Creatinine (mg/dL) Date Value 11/12/2020 0.84 No results found for: CHOL, TRIG, HDL, LDLCALC, LDL Lab Results Component Value Date TSH 0.80 11/06/2020 No results found for: FREET4 Lab Results Component Value Date WBC 13.36 (H) 11/12/2020 HGB 10.1 (L) 11/12/2020 HCT 32.7 (L) 11/12/2020 MCV 83.2 11/12/2020 PLT 497 (H) 11/12/2020 This SmartLink has not been configured with any valid records. This SmartLink has not been configured with any valid records. Laboratory and Additional Data Reviewed: Laboratory 11/12/20 8:45 AM Medications 11/12/20 8:45 AM Transcriptions 11/12/20 8:45 AM Thank you for this consultation, we will continue to follow this patient with you. Electronically signed by Olga CHAVEZ 208:45 AM * Marcella Bell MD - 11/11/2020 2:38 PM EST Patient Name: More Kingsley Jr. Admit Date: MR #: [id number] : 1965 Physicians: Cheng Staples CNP (Family); No ref. provider found (Referring) Assessment: Patient with 1. Left foot abscess 2. Suspicion for osteomyelitis 3. Uncontrolled diabetes. Plan. Continue patient on current therapyn. Continue patient on IV cefazolin. I reviewed labs, including cultures, with MSSA, and be strep. I appreciate content production specialist evaluation. Patient needs incision and drainage of left foot abscess I reviewed MRI of the foot, with Extensive cellulitis, and concern for septic arthroplathy and osteomyelitis of the left foot Dressing according to content production specialist recommendation Endocrinology evaluation for adequate blood sugar control We will continue to follow with you. Patient on wound VAC dressing. Podiatric scheduling for incision and drainage. Subjective: Patient was reevaluated again today, no fever, patient continues on VAC dressings. No new symptoms. Exam: PACU Vitals 11/11/20 1111 BP: 132/84 Pulse: (!) 104 Resp: 16 Temp: 97.9 F (36.6 C) SpO2: 95% Allergies: Patient has no known allergies. Current Facility-Administered Medications: acetaminophen (TYLENOL) tablet 650 mg, 650 mg, Oral, Q6H PRN, Jennifer Gamble CNP, 650 mg at 11/06/20 2104 ceFAZolin (ANCEF) IVPB 2 g (premix), 2,000 mg, Intravenous, Q8H, Mady Russell CNP, Last Rate: 100 mL/hr at 11/11/20 1430, 2,000 mg at 11/11/20 1430 sodium chloride (PF) (NS) 0.9 % contrast line flush 10 mL, 10 mL, Intravenous, Once in imaging AND sodium chloride (PF) (NS) 0.9 % contrast line flush 10 mL, 10 mL, Intravenous, Once in imaging AND gadoterate meglumine (DOTAREM) injection 20 mL, 20 mL, Intravenous, Once in imaging, Bethanie Pinedo MD heparin (porcine) injection 5,000 Units, 5,000 Units, Subcutaneous, Q8H SANCHO, Chuyita Arias MD, 5,000 Units at 11/11/20 0500 insulin glargine (LANTUS) injection 22 Units, 22 Units, Subcutaneous, Nightly, Nam Briggs PA-C insulin lispro (HumaLOG) injection 0-15 Units, 0-15 Units, Subcutaneous, at bedtime, Jack LennonMarielaannamaria, ROSALIA, 2 Units at 11/06/20 2105 insulin lispro (HumaLOG) injection 0-30 Units, 0-30 Units, Subcutaneous, QAM AC, Marvel Mcmillan MD, 3 Units at 11/10/20 1048 insulin lispro (HumaLOG) injection 0-30 Units, 0-30 Units, Subcutaneous, Daily before lunch, Marvel Mcmillan MD, 6 Units at 11/10/20 1353 insulin lispro (HumaLOG) injection 0-30 Units, 0-30 Units, Subcutaneous, Before dinner, Marvel Calero MD, 4 Units at 11/10/20 1805 ipratropium-albuteroL (DUO-NEB) 0.5-2.5 mg/3 ml nebulizer solution 3 mL, 3 mL, Inhalation, Q2H PRN,Flako Pinedo MD lactated Ringers infusion, 100 mL/hr, Intravenous, Continuous, Flako Pinedo MD, Last Rate: 100 mL/hr at 11/11/20 1141, 100 mL/hr at 11/11/20 1141 naloxone (NARCAN) injection 0.1 mg, 0.1 mg, Intravenous, PRN AND Notify physician, , , Until Discontinued AND naloxone (NARCAN) injection 0.4 mg, 0.4 mg, Intravenous, PRN, Jean Farley MD ondansetron (ZOFRAN) injection 4 mg, 4 mg, Intravenous, Q6H PRN, Flako Pinedo MD, 4 mg at 11/10/20 0143 oxyCODONE-acetaminophen (PERCOCET) 5-325 mg per tablet 1 tablet, 1 tablet, Oral, Q4H PRN, Jean Farley MD, 1 tablet at 11/11/20 1311 potassium chloride SA (K-DUR,KLOR-CON) CR tablet 40 mEq, 40 mEq, Oral, Daily, Flako Pinedo MD, 40 mEq at 11/08/20 0931 sodium chloride 0.9% (NS), 0-150 mL/hr, Intravenous, PRN, Tanja Whitmore, [facility],PharmD PMH/PSH/SH/ reviewed, no change : Review of Systems: All systems were reviewed no change: Medications Reviewed. Chart Reviewed. Exam Findings: Chest: Lungs clear bilaterally, no wheezing, or rales CVS: Normal S1 & S2+, Normal Rhythm Abdomen: Obese, normal symmetry, Soft/non-tender. Benign, BS+ Extremities: +Deformities, edema and deformity of the foot, with left foot dressed currently statuspost debridement and dressing soaked. Patient on wound VAC today. Right foot status post transmet, and plantar ulceration noted. 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 Please see pictures. Justice Catheter: None IV Access: Yes I reviewed Medications. I reviewed Labs. Laboratory and Additional Data Reviewed: Laboratory 11/11/20 2:38 PM Microbiology 11/11/20 2:38 PM Radiology 11/11/20 2:38 PM MR Foot Left With And Without Contrast Final Result 1. Abnormal appearance of the midfoot particularly at the 2nd through 5th TMT joints and navicular-middle cuneiform articulations. Given the nearby dorsal skin wound, and degree of inflammation, these findings are concerning for multifocal septic arthropathy and osteomyelitis. Superimposed neuropathic arthropathy is not excluded. The talus and calcaneus appear spared. 2. Extensive cellulitis without obvious abscess. There is some nonenhancement along the midfoot concerning for tissue necrosis. 3. 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 4. No tendon tear or tenosynovitis is seen. MPH/ThisNextv Workstation ID: [id number] MR Foot Right With And Without Contrast Final Result 1. Prior forefoot resection. Cellulitis of the surgical stump is seen associated with small ulceration. 2. No abscess. 3. No MR signs of osteomyelitis. 4. Aear-wb-uktoiifb mid/hindfoot osteoarthritis. 5. Remote sprains of the ATFL and deep fibers of the deltoid ligament, as above. MPH/Dizzion Workstation ID: [id number] XR Foot Left 3+ Views (Standard) Final Result No definite plain film evidence of osteomyelitis in the right or left foot Workstation ID: [id number] XR Foot Right 3+ Views (Standard) Final Result No definite plain film evidence of osteomyelitis in the right or left foot Workstation ID: [id number] XR Comparison Import Final Result CT Comparison Import Final Result XR Chest 1 View Final Result Shallow lungs with right basilar opacity, could be atelectasis or pneumonia Workstation ID: [id number] Medications 11/11/20 2:38 PM Lab Results Component Value Date WBC 11.96 (H) 11/11/2020 HGB 11.2 (L) 11/11/2020 HCT 36.2 (L) 11/11/2020 MCV 83.0 11/11/2020 PLT 511 (H) 11/11/2020 Lab Results Component Value Date GLUCOSE 108 (H) 11/11/2020 CALCIUM 8.1 (L) 11/11/2020 NA 137 11/11/2020 K 4.0 11/11/2020 CL 106 11/11/2020 BUN 8 11/11/2020 CREATININE 1.00 11/11/2020 Problem List Items Addressed This Visit Endocrine * (Principal) Secondary DM with DKA (HCC) Relevant Medications insulin glargine (LANTUS) 100 unit/mL injection insulin glargine (LANTUS) 100 unit/mL injection insulin aspart U-100 (NovoLOG) 100 unit/mL injection insulin lispro (HumaLOG) injection 0-15 Units insulin lispro (HumaLOG) injection 0-30 Units insulin lispro (HumaLOG) injection 0-30 Units insulin lispro (HumaLOG) injection 0-30 Units insulin glargine (LANTUS) injection 22 Units (Start on 11/11/2020 9:00 PM) Other Visit Diagnoses Uncontrolled type 2 diabetes mellitus with peripheral neuropathy (HCC) Relevant Medications insulin glargine (LANTUS) 100 unit/mL injection insulin glargine (LANTUS) 100 unit/mL injection insulin aspart U-100 (NovoLOG) 100 unit/mL injection insulin lispro (HumaLOG) injection 0-15 Units insulin lispro (HumaLOG) injection 0-30 Units insulin lispro (HumaLOG) injection 0-30 Units insulin lispro (HumaLOG) injection 0-30 Units insulin glargine (LANTUS) injection 22 Units (Start on 11/11/2020 9:00 PM) I discussed my management plans with Patient/and or Family member, and also discussed antibiotics therapy including side effects with Patient/and or Family member. Medical Decision Making: Moderate This note is created with the assistance of a speech-recognition program. While intending to generate a document that actually reflects the content of the visit, the document can still have some errors including those of syntax and sound a- like substitutions which may escape proofreading. In such instances, actual meaning can be extrapolated by contextual derivation. * Joan Trejo LISW - 11/11/2020 1:08 PM EST DISCHARGE PLAN PROGRESS NOTE Date: 11/11/2020 Time: 1:09 PM Patient Name: More Kingsley Jr. Date of : 1965 Sex: Male Patient will have an Incision and drainage today with Dr Cherry. Patient continues to work with therapy. Weight bearing on heel only on right lower extremity. Non weight bearing on left. Dr. Bell following antibiotics. Patient voices no questions or concerns at this time. We discussed home health care. Patient has used three different agencies in the past. Care coordination following. * Chuyita Arias MD - 11/11/2020 12:06 PM EST [facility] Medicine Inpatient H&P 11/11/2020 Chuyita Arias MD [facility] Patient: More Kingsley Jr. Date of : 1965 (55 y.o.) PCP: Cheng Staples, BOX PERSON Assessment More Kingsley is a 54 y.o. male is known for hypertension there is mellitus hyperlipidemia chronic kidney disease stage III with creatinine baseline is 1.3 and GFR 40 to 45% presumed diabetic nephropathy, is here due to swelling and pain in the left for this for the past 2 to 3 days, has also ulceron the right foot, reported feeling fatigue loss of appetite headaches, denies fevers or chills wasevaluated emergency department blood glucose elevated close to 400, elevated lactic acid and ketones, leukocytosis and acute kidney injury his creatinine is 1.8, tachycardia with frequent PVCs IMP -sepsis due to Left foot cellulitis and osteomyelitis -Acute kidney injury prerenal azotemia and infection related -Recurrent PVCs and often noticed bigeminy -Hypokalemia and hypophosphatemia -Lactic acidosis and mild ketosis PLAN Left foot abscess and osteomyelitis Sepsis Seen and examined Clinically better Plan of pain of left foot No fever Blood culture are negative Wound culture grew Moderate Growth Staphylococcus aureusAbnormal MRI of left foot 1. Abnormal appearance of the midfoot particularly at the 2nd through 5th TMT joints and navicular-middle cuneiform articulations. Given the nearby dorsal skin wound, and degree of inflammation, these findings are concerning for multifocal septic arthropathy and osteomyelitis. Superimposed neuropathic arthropathy is not excluded. The talus and calcaneus appear spared. 2. Extensive cellulitis without obvious abscess. There is some nonenhancement along the midfoot concerning for tissue necrosis. 3. 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 4. No tendon tear or tenosynovitis is seen. S/p I&D of left foot abscess Podiatry is following Continue with Zosyn and vancomycin Infectious diseases following Acute renal failure Improving Continue with IV fluid BMP daily Diabetes type 2: Uncontrolled Endocrinology is following Lantus 30 units twice daily Sliding scale Hypokalemia: Replaced Hyponatremia: Continue with IV fluids BMP in the morning DVT prophylaxis: DVT prophylaxis: Heparin subcu daily 11/08 Patient had low-grade fever yesterday denies any chest pain shortness of breath or nausea reported mild to moderate foot pain Continue cefazolin IV Add Dilaudid 1 mg IV once when the patient get wound VAC on and continue Percocet as needed Hypokalemia replaced with potassium chloride Blood sugar is okay continue sliding scale coverage and current dose of Lantus 11/09 Patient is better controlled today patient had low-grade fever 99.4 yesterday and 99.2 today statuspost wound VAC done yesterday Continue IV cefazolin and follow podiatry recommendations Mild hypokalemia 3.1 replaced with potassium chloride patient preferred to get IV potassium chloride instead of oral state that ordered irritate his stomach I will order 40 mEq of IV potassium Blood sugars controlled continue current dose of insulin Continue CBC and BMP check daily 11/10 Clinically patient denies any foot pain chest pain abdominal pain shortness of breath nausea or dizziness On exam more swelling of left foot continue wound VAC on IV antibiotics and follow podiatry and ID recommendations Blood sugar is not well controlled insulin management per endocrinology Mild hypokalemia replaced with potassium chloride 11/11 Patient feeling okay had low-grade fever 99.2 yesterday denies any pain shortness of breath nausea or dizziness On the schedule to have I&D by podiatry today Continue IV antibiotics Blood sugar is okay continue current dose of insulin SUBJECTIVE: Chief Complaint: Left foot pain and swelling History of Presenting Illness: More Kingsley is a 55 y.o. male is known for hypertension there is mellitus hyperlipidemia chronic kidney disease stage III with creatinine baseline is 1.3 and GFR 40 to 45% presumed diabetic nephropathy, is here due to swelling and pain in the left for this for the past 2 to 3 days, has also ulceron the right foot, reported feeling fatigue loss of appetite headaches, denies fevers or chills wasevaluated emergency department blood glucose elevated close to 400, elevated lactic acid and ketones, leukocytosis and acute kidney injury his creatinine is 1.8, tachycardia with frequent PVCs Review of Systems: 10 systems reviewed and negative other than noted in HPI OBJECTIVE: Physical Examination: BP 132/84 (BP Location: Right arm, Patient Position: Sitting) Pulse (!) 104 Temp 97.9 F (36.6 C) (Oral) Resp 16 Ht 5' 10 Wt 105 kg (231 lb 7.7 oz) SpO2 95% BMI 33.21 kg/m General Appearance: Alert, well appearing, and in no acute distress. HEENT: Head - Normocephalic, atraumatic. Eyes - JADE bilaterally and EOMI. Ears - normal external appearance, hearing intact. Nose - normal, no erythema. Throat - mucous membranes moist, pharynx without lesions. Neck: Supple, trachea midline. Cardiovascular: S1, S2 normal. No murmurs, rubs, clicks or gallops appreciated. No pedal edema. Respiratory: Lungs clear to auscultation, no wheezes, rales or rhonchi heard. Abdomen: Soft, non-tender, normal bowel sounds, non-distended, no masses or organomegaly appreciated. Neurological: Grossly normal motor and sensory exam. No focal deficits. Musculoskeletal: No joint tenderness, deformity or swelling. Skin: Normal coloration and turgor. No rashes. Psych: Alert, oriented x 3. Normal mood and affect. Laboratory and Additional Data Reviewed: Results/Medications Reviewed 11/11/20 12:06 PM: Results from last 7 days Lab Units 11/11/20 0537 11/10/20 0314 11/09/20 0519 SODIUM mmol/L 137 136 135 POTASSIUM mmol/L 4.0 3.4* 3.1* CHLORIDE mmol/L 106 104 103 BUN mg/dL 8 8 10 CREATININE mg/dL 1.00 0.94 0.84 GLUCOSE mg/dL 108* 151* 85 CALCIUM mg/dL 8.1* 7.9* 7.6* Results from last 7 days Lab Units 11/11/20 0537 11/10/20 0314 11/09/20 0519 WBC K/mcL 11.96* 12.21* 11.42* HGB g/dL 11.2* 11.4* 11.2* HCT % 36.2* 36.2* 35.8* PLT K/mcL 511* 411* 337 Results from last 7 days Lab Units 11/05/20 2211 11/05/20 1936 TROPONIN I ng/L <15 <15 Results from last 7 days Lab Units 11/05/20 1936 ALK PHOS U/L 95 BILIRUBIN TOTAL mg/dL 0.9 TOTAL PROTEIN g/dL 8.1* ALTR U/L 16 AST U/L 26 CULTURES: Reviewed 12:06 PM IMAGING: Reviewed 12:06 PM * Nam Briggs PA-C - 11/11/2020 10:47 AM EST Patient ID: Patient Name: More Kingsley Jr. Admit Date: 11/05/2020 MR #: [id number] : 1965 Current location: [facility] [place] Physicians: Cheng Staples CNP (Family); Dr. Pinedo (Referring) Reason for consult: Type 2 diabetes out of control Assessment/Plan: Dx: Type 2 diabetes, under poor control Currently taking as outpatient: Metformin 1000 mg twice daily Humalog insulin: 1:3 units at breakfast; 1:3 units at lunch; 1:3 units at supper Lantus insulin: 38 units at breakfast; 36 units at bedtime Current Hemoglobin A1C= Lab Results Component Value Date HGBA1C 8.2 (H) 11/05/2020 NOTES: BG and labs reviewed since admission. Patient reports taking QID insulin as an outpatient. Admitted with bilateral foot wounds and cellulitis. 11/07 BG and labs reviewed. WBC 12.03, Hgb 11.2, Hct 35.6 Plt 282k. 11/08: BG and labs reviewed. Patient's BG ranging from 107-221 over last 24 hours. Currently on lantus 35 units BID and humalog 1:3 TID with meals. Na: 135; K: 3.4; Creat: 0.98; eGFR: 88; Ca: 7.8; CBC: WBC: 12.03; Hgb: 11.2; Hct: 35.6; Plt: 282. Patient reports No complaints. 11/09: BG and labs reviewed over the past 24 hours. Current insulin doses include Lantus 35u BID, and Humalog 1:3 CHO ratio at meals, + sliding scale insulin with meals. MRI of the foot, with Extensive cellulitis, and concern for septic arthroplathy and osteomyelitis of the left foot. He cont. To be followed by ID, Dr Bell. The patient is wearing a wound VAC. 11/11: BG and labs reviewed. Insulin adjusted over the weekend secondary to hypoglycemia. Currentlyreceiving Lantus 25 units nightly, Humalog 4u TID premeal. He is returning to the OR today for further I&D of wound, therefore is NPO. He states his appetite has been somewhat poor. Blood Glucoses: 11/05: ___---___---___---309 11/06: 303---346---301---327 11/07 209---206---221---205---178 11/08: 107---109---98---105 11/09: 61----96-----88 ---82----112 11/10: 167---151---137---136 11/11: 115 Plan: 1. Rx changes: Adjust insulin doses. Humalog insulin: 1:3 units at breakfast; 1:3 units at lunch; 1:3 units at supper Lantus insulin: 25 units at breakfast; 25 units at bedtime Hold metformin. 11/07 Increase Lantus to 35 units BID and continue Humalog 1:3 ins:CHO ratio. Left foot with osteomyelitis on MRI. 11/08: CPM. 11/09: Lantus 32u HS, cont. 35u AM, and cont. 1:3 CHO ratios at meals. 11/11: Decrease Lantus 22 units nightly, continue Humalog 4 units TID with meals 2. Education: Reviewed ABCs of diabetes management (respective goals in parentheses): A1C (7.0-8.0), blood pressure (<130/80), and cholesterol (LDL <100). Referral to Diabetes Education Referral to Nutrition therapy Subjective: 11/09: Patient resting quietly in bed. He is feeling fairly well. He denies any complaints currently. Brief HPI: Mr. Kingsley is a 54 year old male with a past medical history of type 2 DM, HTN, hyperlipidemia who presented for evaluation of left lower extremity cellulitis swelling and pain along with lesions to right foot. Patient reports no chest pain. Occasional SOB. No blurred or double vision. Nofever or chills. Patient reports occasional nausea. Patient's labs reviewed with creat 1.82, K: 3.3, Glucose 309. Patient has had diabetes for 18 years. Diagnosed in 2001. Patient is currently taking Humalog insulin: 1:3 units at breakfast; 1:3 units at lunch; 1:3 units at supper Lantus insulin: 38 units at breakfast; 36 units at bedtime along with metformin 1000 mg BID as an out patient. Patient has taken Insulin for 12-14 years. Currently the patient is receiving no insulinat this time. Blood sugar levels since admission have been ranging from 303-309 mg/dL. Current monitoring regimen: home blood tests - 1-4 times daily Complications of diabetes include: Retinopathy: Positive: Proliferative diabetic retinopathy and Intraocular injection Nephropathy: Positive Peripheral Neuropathy: Positive Autonomic Neuropathy: Negative Allergies: No Known Allergies Home Medications: Outpatient Medications Marked as Taking for the 11/05/20 encounter (Hospital Encounter): insulin aspart U-100 (NovoLOG) 100 unit/mL injection, Inject under the skin 3 (three) times a day before meals Sliding scale, patient unsure of doses. . insulin glargine (LANTUS) 100 unit/mL injection, Inject 38 Units under the skin daily AM . insulin glargine (LANTUS) 100 unit/mL injection, Inject 32 Units under the skin nightly HS . metFORMIN (GLUCOPHAGE) 1000 MG tablet, Take 1,000 mg by mouth 2 (two) times a day with meals . Current Medications: ceFAZolin (ANCEF) IVPB 2,000 mg Intravenous Q8H heparin (porcine) 5,000 Units Subcutaneous Q8H SANCHO insulin glargine 22 Units Subcutaneous Nightly lispro insulin 0-15 Units Subcutaneous at bedtime insulin lispro 0-30 Units Subcutaneous QAM AC insulin lispro 0-30 Units Subcutaneous Daily before lunch insulin lispro 0-30 Units Subcutaneous Before dinner potassium chloride SA 40 mEq Oral Daily acetaminophen, sodium chloride (PF) AND sodium chloride (PF) AND gadoterate meglumine, ipratropium-albuteroL, nalOXone AND Notify physician AND naloxone, ondansetron, oxyCODONE-acetaminophen, sodium chloride 0.9 % Review of Systems: Review of Systems Constitutional: Positive for appetite change and fatigue. Negative for unexpected weight change. Eyes: Negative for visual disturbance. Respiratory: Negative for cough and shortness of breath. Cardiovascular: Negative for chest pain and leg swelling. Gastrointestinal: Positive for nausea. Negative for abdominal pain, constipation, diarrhea and vomiting. Endocrine: Negative for polydipsia, polyphagia and polyuria. Genitourinary: Negative for frequency and urgency. Musculoskeletal: Positive for arthralgias and joint swelling. Skin: Positive for rash (redness and swelling to LLE) and wound (multiple wounds to foot). Neurological: Negative for numbness and headaches. Psychiatric/Behavioral: Negative for agitation and sleep disturbance. The patient is not nervous/anxious. History: Past Medical History: Diagnosis Date Diabetes mellitus, type 2 (HCC) Diabetic nephropathy (HCC) Diabetic neuropathy (HCC) Diabetic retinopathy (HCC) Hyperlipidemia Hypertension Nephropathy Past Surgical History: Procedure Laterality Date AMPUTATION FOOT Left forefoot HAND SURGERY Left Family History Problem Relation Age of Onset Diabetes Mother Diabetes Father Heart disease Father Diabetes Brother Social History Tobacco Use Smoking status: Never Smoker Smokeless tobacco: Never Used Substance Use Topics Alcohol use: Yes Comment: rarely Drug use: Never The following portions of the patient's history were reviewed and updated as appropriate: allergies, current medications, past family history, past medical history, past social history, past surgicalhistory and problem list. Objective: BP (!) 156/89 (BP Location: Left arm, Patient Position: Lying) Pulse (!) 104 Temp 98.6 F (37 C)(Oral) Resp 16 Ht 5' 10 Wt 105 kg (231 lb 7.7 oz) SpO2 92% BMI 33.21 kg/m Wt Readings from Last 3 Encounters: 11/05/20 105 kg (231 lb 7.7 oz) 11/06/20 104.3 kg (230 lb) 11/05/20 105 kg (231 lb 7.7 oz) Physical Exam: Physical Exam Constitutional: He is oriented to person, place, and time. He appears well- developed and well-nourished. HENT: Head: Normocephalic and atraumatic. Eyes: Pupils are equal, round, and reactive to light. Conjunctivae are normal. Neck: Normal range of motion. Neck supple. No thyromegaly present. Cardiovascular: Normal rate, regular rhythm, normal heart sounds and intact distal pulses. No murmur heard. Pulmonary/Chest: Effort normal and breath sounds normal. Abdominal: Soft. Musculoskeletal: Normal range of motion. General: Deformity (left foot) and edema present. Neurological: He is alert and oriented to person, place, and time. Skin: Skin is warm and dry. There is erythema. Redness and swelling to left lower extremity Right foot status post forefoot amputation along with multiple lesions in various phases of healing. Ulcer with packing in place right foot. Left foot Wound VAC in place. Psychiatric: He has a normal mood and affect. His behavior is normal. Judgment and thought content normal. Laboratory Review: BP (!) 156/89 (BP Location: Left arm, Patient Position: Lying) Pulse (!) 104 Temp 98.6 F (37 C)(Oral) Resp 16 Ht 5' 10 Wt 105 kg (231 lb 7.7 oz) SpO2 92% BMI 33.21 kg/m Lab Results Component Value Date HGBA1C 8.2 (H) 11/05/2020 Glucose (mg/dL) Date Value 11/11/2020 108 (H) Creatinine (mg/dL) Date Value 11/11/2020 1.00 No results found for: CHOL, TRIG, HDL, LDLCALC, LDL Lab Results Component Value Date TSH 0.80 11/06/2020 No results found for: FREET4 Lab Results Component Value Date WBC 11.96 (H) 11/11/2020 HGB 11.2 (L) 11/11/2020 HCT 36.2 (L) 11/11/2020 MCV 83.0 11/11/2020 PLT 511 (H) 11/11/2020 This SmartLink has not been configured with any valid records. This SmartLink has not been configured with any valid records. Laboratory and Additional Data Reviewed: Laboratory 11/11/20 10:48 AM Medications 11/11/20 10:48 AM Transcriptions 11/11/20 10:48 AM Thank you for this consultation, we will continue to follow this patient with you. Electronically signed by: Nam Briggs PA-C, MPAS 11/11/20 10:50 AM * Tricia Underwood, BOAT PULLER - 11/11/2020 8:43 AM EST Physical Therapy PHYSICAL THERAPY TREATMENT NOTE Skilled Therapy Needs After Discharge Are Skilled Therapy Services Needed After Discharge: Yes Intensity of Skilled Therapy: 2-3 days per week Anticipated Duration of Skilled Therapy: Duration 10 - 30 days DME Recommendation: None Rehab Potential: Good Outcomes Measures Prior Function - Basic Mobility Raw Score: 24 Points Prior Function - Basic Mobility % Impaired: 0% functionally impaired AM-PAC - Basic Mobility Raw Score: 14 Points AM-PAC - Basic Mobility % Impaired: Activity Tolerance Therapy Precautions Orthotic Devices: No Weight Bearing Status: (per pt NWB LLE) General Rehab Precautions: Fall risk Balance Bed Mobility Transfers pt having procedure today, not agreeable to be OOB at this time. See TE Gait/Locomotion Exercise Skilled Intervention: (HEP for supine TE) HEP educated for DOC LE therex: 7w96-54 reps In each direction to improve ms and carryover of improved mobility. Print out provided as well. Pt verbally agrees to perform most as long as no back pain. Home Living Type of Home: House Home Layout: One level, Stairs to enter with rails(5 BRINDA, B HR) Prior Level of Function Level of [place]: Independent with ADLs and functional transfers Lives With: Alone Comments: no AD use at home For complete objective data, detailed plan of care and patient education refer to: PT EVALUATION flow sheet, PT TREATMENT flow sheet, patient Plan of Care, Plan of Care progress note, and Patient Education. This note stands as the current Discharge Summary upon patient discharge from the hospital or completion of Physical Therapy Plan of Care. * Leanne Cherry DPM - 2020 3:40 PM EST Progress Inpatient Follow-up 2020 Leanne Cherry DPM [facility] Patient: More Kingsley Jr. Date of : 1965 (55 y.o.) PCP: Cheng Staples CNP ASSESSMENT/PLAN: More Kingsley 55 y.o. male with history of left midfoot abscess with possible underlying osteomyelitis vs charcot. Right plantar midfoot ulceration with history of right forefoot amputation. Diabeticneuropathy to bilateral feet. Plan: Pt examined at bedside Discussed clinical findings with pt Wound vac intact to left foot functioning at 125 mmhg with more than 75 cc of serosanguinous drainage. Keep wound vac intact until Wednesday Continue IV antibiotics per Dr. Bell's recs. Tentative plans for surgical I&D of the left foot NPO at midnight Leanne Cherry DPM, MSBS Podiatric Physician and Surgeon SUBJECTIVE: History Since Last Visit: Pt is resting in bed. No significant events overnight. No new pedal complaints. Denies any fevers, vomiting, chest pain, chest pressure, SOB, calf pain or consitutional symptoms. OBJECTIVE: Physical Examination: BP (!) 144/85 (BP Location: Left arm, Patient Position: Lying) Pulse 99 Temp 98.7 F (37.1 C) (Oral) Resp 16 Ht 5' 10 Wt 105 kg (231 lb 7.7 oz) SpO2 92% BMI 33.21 kg/m Wound Vac intact with approximately 75 cc of serosanguinous drainage, left foot. Neuro: Pt profoundly neuropathic to bilateral feet Vascular: Pulses not palpated today. Dressing to right foot dry and intact. Both feet are warm to touch. M/S: Patient is able to wiggle digits. Compartments soft and compressible. No calf pain. Laboratory and Additional Data Reviewed: Reviewed:[id number]} * Marcella Bell MD - 2020 2:47 PM EST Patient Name: More Kingsley Jr. Admit Date: MR #: [id number] : 1965 Physicians: Cheng Staples CNP (Family); No ref. provider found (Referring) Assessment: Patient with 1. Left foot abscess 2. Suspicion for osteomyelitis 3. Uncontrolled diabetes. Plan. Continue patient on current therapyn. Continue patient on IV cefazolin. I reviewed labs, including cultures, with MSSA, and be strep. I appreciate content production specialist evaluation. Patient needs incision and drainage of left foot abscess I reviewed MRI of the foot, with Extensive cellulitis, and concern for septic arthroplathy and osteomyelitis of the left foot Dressing according to content production specialist recommendation Endocrinology evaluation for adequate blood sugar control We will continue to follow with you. Patient on wound VAC dressing. Subjective: Patient was reevaluated again today, with no new symptoms, no fever, patient continues on VAC dressings. Exam: PACU Vitals 11/10/20 1201 BP: (!) 144/85 Pulse: 99 Resp: 16 Temp: 98.7 F (37.1 C) SpO2: 92% Allergies: Patient has no known allergies. Current Facility-Administered Medications: acetaminophen (TYLENOL) tablet 650 mg, 650 mg, Oral, Q6H PRN, Jennifer Gamble CNP, 650 mg at 11/06/20 2104 ceFAZolin (ANCEF) IVPB 2 g (premix), 2,000 mg, Intravenous, Q8H, Mady Russell CNP, Last Rate: 100 mL/hr at 11/10/20 1401, 2,000 mg at 11/10/20 1401 sodium chloride (PF) (NS) 0.9 % contrast line flush 10 mL, 10 mL, Intravenous, Once in imaging AND sodium chloride (PF) (NS) 0.9 % contrast line flush 10 mL, 10 mL, Intravenous, Once in imaging AND gadoterate meglumine (DOTAREM) injection 20 mL, 20 mL, Intravenous, Once in imaging, Bethanie Pinedo MD heparin (porcine) injection 5,000 Units, 5,000 Units, Subcutaneous, Q8H [facility], Chuyita Arias MD, 5,000 Units at 11/10/20 1402 [START ON 11/11/2020] insulin glargine (LANTUS) injection 25 Units, 25 Units, Subcutaneous, QAM, Marvel Mcmillan MD insulin glargine (LANTUS) injection 25 Units, 25 Units, Subcutaneous, Nightly, Marvel Mcmillan MD insulin lispro (HumaLOG) injection 0-15 Units, 0-15 Units, Subcutaneous, at bedtime, Jack Hair CNP, 2 Units at 11/06/20 2105 insulin lispro (HumaLOG) injection 0-30 Units, 0-30 Units, Subcutaneous, QAM AC, Marvel Mcmillan MD, 3 Units at 11/10/20 1048 insulin lispro (HumaLOG) injection 0-30 Units, 0-30 Units, Subcutaneous, Daily before lunch, Marvel Mcmillan MD, 6 Units at 11/10/20 1353 insulin lispro (HumaLOG) injection 0-30 Units, 0-30 Units, Subcutaneous, Before dinner, Marvel Calero MD insulin lispro (HumaLOG) injection 3 Units, 3 Units, Subcutaneous, Once, Marvel Mcmillan MD ipratropium-albuteroL (DUO-NEB) 0.5-2.5 mg/3 ml nebulizer solution 3 mL, 3 mL, Inhalation, Q2H PRN,Flako Pinedo MD lactated Ringers infusion, 100 mL/hr, Intravenous, Continuous, Flako Pinedo MD, Last Rate: 100 mL/hr at 11/10/20 1203, 100 mL/hr at 11/10/20 1203 naloxone (NARCAN) injection 0.1 mg, 0.1 mg, Intravenous, PRN AND Notify physician, , , Until Discontinued AND naloxone (NARCAN) injection 0.4 mg, 0.4 mg, Intravenous, PRN, Jean Farley MD ondansetron (ZOFRAN) injection 4 mg, 4 mg, Intravenous, Q6H PRN, Flako Pinedo MD, 4 mg at 11/10/20 0143 oxyCODONE-acetaminophen (PERCOCET) 5-325 mg per tablet 1 tablet, 1 tablet, Oral, Q4H PRN, Jean Farley MD, 1 tablet at 11/10/20 1222 potassium chloride 20 mEq in 100 mL IVPB, 20 mEq, Intravenous, Q2H, Chuyita Arias MD, Last Rate: 50 mL/hr at 11/10/20 1359, 20 mEq at 11/10/20 1359 potassium chloride SA (K-DUR,KLOR-CON) CR tablet 40 mEq, 40 mEq, Oral, Daily, Flako Pinedo MD, 40 mEq at 11/08/20 0931 sodium chloride 0.9% (NS), 0-150 mL/hr, Intravenous, PRN, Tanja Whitmore, [facility],PharmD PMH/PSH/SH/ reviewed, no change : Review of Systems: All systems were reviewed no change: Medications Reviewed. Chart Reviewed. Exam Findings: Chest: Lungs clear bilaterally, no wheezing, or rales CVS: Normal S1 & S2+, Normal Rhythm Abdomen: Obese, normal symmetry, Soft/non-tender. Benign, BS+ Extremities: +Deformities, edema and deformity of the foot, with left foot dressed currently statuspost debridement and dressing soaked. Patient on wound VAC today. Right foot status post transmet, and plantar ulceration noted. 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 Please see pictures. Justice Catheter: None IV Access: Yes I reviewed Medications. I reviewed Labs. Laboratory and Additional Data Reviewed: Laboratory 11/10/20 2:47 PM Microbiology 11/10/20 2:47 PM Radiology 11/10/20 2:47 PM MR Foot Left With And Without Contrast Final Result 1. Abnormal appearance of the midfoot particularly at the 2nd through 5th TMT joints and navicular-middle cuneiform articulations. Given the nearby dorsal skin wound, and degree of inflammation, these findings are concerning for multifocal septic arthropathy and osteomyelitis. Superimposed neuropathic arthropathy is not excluded. The talus and calcaneus appear spared. 2. Extensive cellulitis without obvious abscess. There is some nonenhancement along the midfoot concerning for tissue necrosis. 3. 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 4. No tendon tear or tenosynovitis is seen. [facility]/[employer] Workstation ID: [id number] MR Foot Right With And Without Contrast Final Result 1. Prior forefoot resection. Cellulitis of the surgical stump is seen associated with small ulceration. 2. No abscess. 3. No MR signs of osteomyelitis. 4. Yzal-uy-dojqjuif mid/hindfoot osteoarthritis. 5. Remote sprains of the ATFL and deep fibers of the deltoid ligament, as above. [facility]/[employer] Workstation ID: [id number] XR Foot Left 3+ Views (Standard) Final Result No definite plain film evidence of osteomyelitis in the right or left foot Workstation ID: [id number] XR Foot Right 3+ Views (Standard) Final Result No definite plain film evidence of osteomyelitis in the right or left foot Workstation ID: [id number] XR Comparison Import Final Result CT Comparison Import Final Result XR Chest 1 View Final Result Shallow lungs with right basilar opacity, could be atelectasis or pneumonia Workstation ID: [id number] Medications 11/10/20 2:47 PM Lab Results Component Value Date WBC 12.21 (H) 2020 HGB 11.4 (L) 2020 HCT 36.2 (L) 2020 MCV 84.2 2020 PLT 411 (H) 2020 Lab Results Component Value Date GLUCOSE 151 (H) 2020 CALCIUM 7.9 (L) 2020 NA 136 2020 K 3.4 (L) 2020 CL 104 2020 BUN 8 2020 CREATININE 0.94 2020 Problem List Items Addressed This Visit Endocrine * (Principal) Secondary DM with DKA (HCC) Relevant Medications insulin glargine (LANTUS) 100 unit/mL injection insulin glargine (LANTUS) 100 unit/mL injection insulin aspart U-100 (NovoLOG) 100 unit/mL injection insulin lispro (HumaLOG) injection 0-15 Units insulin lispro (HumaLOG) injection 0-30 Units insulin lispro (HumaLOG) injection 0-30 Units insulin lispro (HumaLOG) injection 0-30 Units (Start on 2020 4:30 PM) insulin glargine (LANTUS) injection 25 Units (Start on 11/11/2020 9:00 AM) insulin glargine (LANTUS) injection 25 Units (Start on 2020 9:00 PM) insulin lispro (HumaLOG) injection 3 Units Other Visit Diagnoses Uncontrolled type 2 diabetes mellitus with peripheral neuropathy (HCC) Relevant Medications insulin glargine (LANTUS) 100 unit/mL injection insulin glargine (LANTUS) 100 unit/mL injection insulin aspart U-100 (NovoLOG) 100 unit/mL injection insulin lispro (HumaLOG) injection 0-15 Units insulin lispro (HumaLOG) injection 0-30 Units insulin lispro (HumaLOG) injection 0-30 Units insulin lispro (HumaLOG) injection 0-30 Units (Start on 2020 4:30 PM) insulin glargine (LANTUS) injection 25 Units (Start on 11/11/2020 9:00 AM) insulin glargine (LANTUS) injection 25 Units (Start on 2020 9:00 PM) insulin lispro (HumaLOG) injection 3 Units I discussed my management plans with Patient/and or Family member, and also discussed antibiotics therapy including side effects with Patient/and or Family member. Medical Decision Making: Moderate This note is created with the assistance of a speech-recognition program. While intending to generate a document that actually reflects the content of the visit, the document can still have some errors including those of syntax and sound a- like substitutions which may escape proofreading. In such instances, actual meaning can be extrapolated by contextual derivation. * Chuyita Arias MD - 2020 11:19 AM EST [facility] Medicine Inpatient H&P 2020 Chuyita Arias MD [facility] Patient: More Kingsley . Date of : 1965 (55 y.o.) PCP: Cheng Staples, BOX PERSON Assessment More Kingsley is a 54 y.o. male is known for hypertension there is mellitus hyperlipidemia chronic kidney disease stage III with creatinine baseline is 1.3 and GFR 40 to 45% presumed diabetic nephropathy, is here due to swelling and pain in the left for this for the past 2 to 3 days, has also ulceron the right foot, reported feeling fatigue loss of appetite headaches, denies fevers or chills wasevaluated emergency department blood glucose elevated close to 400, elevated lactic acid and ketones, leukocytosis and acute kidney injury his creatinine is 1.8, tachycardia with frequent PVCs IMP -sepsis due to Left foot cellulitis and osteomyelitis -Acute kidney injury prerenal azotemia and infection related -Recurrent PVCs and often noticed bigeminy -Hypokalemia and hypophosphatemia -Lactic acidosis and mild ketosis PLAN Left foot abscess and osteomyelitis Sepsis Seen and examined Clinically better Plan of pain of left foot No fever Blood culture are negative Wound culture grew Moderate Growth Staphylococcus aureusAbnormal MRI of left foot 1. Abnormal appearance of the midfoot particularly at the 2nd through 5th TMT joints and navicular-middle cuneiform articulations. Given the nearby dorsal skin wound, and degree of inflammation, these findings are concerning for multifocal septic arthropathy and osteomyelitis. Superimposed neuropathic arthropathy is not excluded. The talus and calcaneus appear spared. 2. Extensive cellulitis without obvious abscess. There is some nonenhancement along the midfoot concerning for tissue necrosis. 3. 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 4. No tendon tear or tenosynovitis is seen. S/p I&D of left foot abscess Podiatry is following Continue with Zosyn and vancomycin Infectious diseases following Acute renal failure Improving Continue with IV fluid BMP daily Diabetes type 2: Uncontrolled Endocrinology is following Lantus 30 units twice daily Sliding scale Hypokalemia: Replaced Hyponatremia: Continue with IV fluids BMP in the morning DVT prophylaxis: DVT prophylaxis: Heparin subcu daily 11/08 Patient had low-grade fever yesterday denies any chest pain shortness of breath or nausea reported mild to moderate foot pain Continue cefazolin IV Add Dilaudid 1 mg IV once when the patient get wound VAC on and continue Percocet as needed Hypokalemia replaced with potassium chloride Blood sugar is okay continue sliding scale coverage and current dose of Lantus 11/09 Patient is better controlled today patient had low-grade fever 99.4 yesterday and 99.2 today statuspost wound VAC done yesterday Continue IV cefazolin and follow podiatry recommendations Mild hypokalemia 3.1 replaced with potassium chloride patient preferred to get IV potassium chloride instead of oral state that ordered irritate his stomach I will order 40 mEq of IV potassium Blood sugars controlled continue current dose of insulin Continue CBC and BMP check daily 11/10 Clinically patient denies any foot pain chest pain abdominal pain shortness of breath nausea or dizziness On exam more swelling of left foot continue wound VAC on IV antibiotics and follow podiatry and ID recommendations Blood sugar is not well controlled insulin management per endocrinology Mild hypokalemia replaced with potassium chloride SUBJECTIVE: Chief Complaint: Left foot pain and swelling History of Presenting Illness: More Kingsley is a 55 y.o. male is known for hypertension there is mellitus hyperlipidemia chronic kidney disease stage III with creatinine baseline is 1.3 and GFR 40 to 45% presumed diabetic nephropathy, is here due to swelling and pain in the left for this for the past 2 to 3 days, has also ulceron the right foot, reported feeling fatigue loss of appetite headaches, denies fevers or chills wasevaluated emergency department blood glucose elevated close to 400, elevated lactic acid and ketones, leukocytosis and acute kidney injury his creatinine is 1.8, tachycardia with frequent PVCs Review of Systems: 10 systems reviewed and negative other than noted in HPI OBJECTIVE: Physical Examination: BP (!) 163/90 Pulse (!) 101 Temp 98.7 F (37.1 C) (Oral) Resp 16 Ht 5' 10 Wt 105 kg (231 lb 7.7 oz) SpO2 94% BMI 33.21 kg/m General Appearance: Alert, well appearing, and in no acute distress. HEENT: Head - Normocephalic, atraumatic. Eyes - JADE bilaterally and EOMI. Ears - normal external appearance, hearing intact. Nose - normal, no erythema. Throat - mucous membranes moist, pharynx without lesions. Neck: Supple, trachea midline. Cardiovascular: S1, S2 normal. No murmurs, rubs, clicks or gallops appreciated. No pedal edema. Respiratory: Lungs clear to auscultation, no wheezes, rales or rhonchi heard. Abdomen: Soft, non-tender, normal bowel sounds, non-distended, no masses or organomegaly appreciated. Neurological: Grossly normal motor and sensory exam. No focal deficits. Musculoskeletal: No joint tenderness, deformity or swelling. Skin: Normal coloration and turgor. No rashes. Psych: Alert, oriented x 3. Normal mood and affect. Laboratory and Additional Data Reviewed: Results/Medications Reviewed 11/10/20 11:19 AM: Results from last 7 days Lab Units 11/10/204 11/09/2051811/08/20518 SODIUM mmol/L 136 135 135 POTASSIUM mmol/L 3.4* 3.1* 3.4* CHLORIDE mmol/L 104 103 104 BUN mg/dL 8 10 14 CREATININE mg/dL 0.94 0.84 0.98 GLUCOSE mg/dL 151* 85 136* CALCIUM mg/dL 7.9* 7.6* 7.8* Results from last 7 days Lab Units 11/10/20 0314 11/09/20 0519 11/07/20 1153 WBC K/mcL 12.21* 11.42* 12.03* HGB g/dL 11.4* 11.2* 11.2* HCT % 36.2* 35.8* 35.6* PLT K/mcL 411* 337 282 Results from last 7 days Lab Units 11/05/20 2211 11/05/20 1936 TROPONIN I ng/L <15 <15 Results from last 7 days Lab Units 11/05/20 1936 ALK PHOS U/L 95 BILIRUBIN TOTAL mg/dL 0.9 TOTAL PROTEIN g/dL 8.1* ALTR U/L 16 AST U/L 26 CULTURES: Reviewed 11:19 AM IMAGING: Reviewed 11:19 AM * Marcella Bell MD - 11/09/2020 7:48 PM EST Patient Name: More Kingsley Jr. Admit Date: MR #: [id number] : 1965 Physicians: Cheng Staples CNP (Family); No ref. provider found (Referring) Assessment: Patient with 1. Left foot abscess 2. Suspicion for osteomyelitis 3. Uncontrolled diabetes. Plan. Continue patient on current therapyn. Continue patient on IV cefazolin. I reviewed labs, including cultures, with MSSA, and be strep. I appreciate content production specialist evaluation. Patient needs incision and drainage of left foot abscess I reviewed MRI of the foot, with Extensive cellulitis, and concern for septic arthroplathy and osteomyelitis of the left foot Dressing according to content production specialist recommendation Endocrinology evaluation for adequate blood sugar control We will continue to follow with you. I discussed with Dr. Cherry on management plan. Patient on wound VAC dressing. Subjective: Patient was reevaluated again today, with no new symptoms, no fever, podiatry has done some debridement at the bedside, foot has been dressed. Exam: PACU Vitals 11/09/20 1541 BP: 137/84 Pulse: 96 Resp: 16 Temp: 98.3 F (36.8 C) SpO2: 96% Allergies: Patient has no known allergies. Current Facility-Administered Medications: acetaminophen (TYLENOL) tablet 650 mg, 650 mg, Oral, Q6H PRN, Jennifer Gamble CNP, 650 mg at 11/06/20 210 ceFAZolin (ANCEF) IVPB 2 g (premix), 2,000 mg, Intravenous, Q8H, Mady Russell CNP, Last Rate: 100 mL/hr at 11/09/20 1532, 2,000 mg at 11/09/20 1532 sodium chloride (PF) (NS) 0.9 % contrast line flush 10 mL, 10 mL, Intravenous, Once in imaging AND sodium chloride (PF) (NS) 0.9 % contrast line flush 10 mL, 10 mL, Intravenous, Once in imaging AND gadoterate meglumine (DOTAREM) injection 20 mL, 20 mL, Intravenous, Once in imaging, Bethanie Pinedo MD heparin (porcine) injection 5,000 Units, 5,000 Units, Subcutaneous, Q8H [facility], Chuyita Arias MD, 5,000 Units at 11/09/20 1536 insulin glargine (LANTUS) injection 32 Units, 32 Units, Subcutaneous, Nightly, Olga Wheeler CNP [START ON 2020] insulin glargine (LANTUS) injection 35 Units, 35 Units, Subcutaneous, QAM, Olga Wheeler CNP insulin lispro (HumaLOG) injection 0-15 Units, 0-15 Units, Subcutaneous, at bedtime, Jack Hair CNP, 2 Units at 11/06/20 210 insulin lispro (HumaLOG) injection 0-30 Units, 0-30 Units, Subcutaneous, QAM AC, Jack Coffey CNP, 6 Units at 11/09/20 1124 insulin lispro (HumaLOG) injection 0-30 Units, 0-30 Units, Subcutaneous, Daily before lunch, Jack Coffey CNP, 3 Units at 11/08/20 1313 insulin lispro (HumaLOG) injection 0-30 Units, 0-30 Units, Subcutaneous, Before dinner, Jack Coffey CNP, 3 Units at 11/09/20 1826 ipratropium-albuteroL (DUO-NEB) 0.5-2.5 mg/3 ml nebulizer solution 3 mL, 3 mL, Inhalation, Q2H PRN,Flako Pinedo MD lactated Ringers infusion, 100 mL/hr, Intravenous, Continuous, Flako Pinedo MD, Last Rate: 100 mL/hr at 11/09/20 0356, 100 mL/hr at 11/09/20 0356 naloxone (NARCAN) injection 0.1 mg, 0.1 mg, Intravenous, PRN AND Notify physician, , , Until Discontinued AND naloxone (NARCAN) injection 0.4 mg, 0.4 mg, Intravenous, PRN, Jean Farley MD ondansetron (ZOFRAN) injection 4 mg, 4 mg, Intravenous, Q6H PRN, Flako Pinedo MD, 4 mg at 11/08/20 0046 oxyCODONE-acetaminophen (PERCOCET) 5-325 mg per tablet 1 tablet, 1 tablet, Oral, Q4H PRN, Jean Farley MD, 1 tablet at 11/09/20 0955 potassium chloride SA (K-DUR,KLOR-CON) CR tablet 40 mEq, 40 mEq, Oral, Daily, Flako Pinedo MD, 40 mEq at 11/08/20 0931 sodium chloride 0.9% (NS), 0-150 mL/hr, Intravenous, PRN, Tanja Whitmore, [facility],PharmD PMH/PSH/SH/ reviewed, no change : Review of Systems: All systems were reviewed no change: Medications Reviewed. Chart Reviewed. Exam Findings: Chest: Lungs clear bilaterally, no wheezing, or rales CVS: Normal S1 & S2+, Normal Rhythm Abdomen: Obese, normal symmetry, Soft/non-tender. Benign, BS+ Extremities: +Deformities, edema and deformity of the foot, with left foot dressed currently statuspost debridement and dressing soaked. Patient on wound VAC today. Right foot status post transmet, and plantar ulceration noted. 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 Please see pictures. Justice Catheter: None IV Access: Yes I reviewed Medications. I reviewed Labs. Laboratory and Additional Data Reviewed: Laboratory 11/09/20 7:49 PM Microbiology 11/09/20 7:49 PM Radiology 11/09/20 7:49 PM MR Foot Left With And Without Contrast Final Result 1. Abnormal appearance of the midfoot particularly at the 2nd through 5th TMT joints and navicular-middle cuneiform articulations. Given the nearby dorsal skin wound, and degree of inflammation, these findings are concerning for multifocal septic arthropathy and osteomyelitis. Superimposed neuropathic arthropathy is not excluded. The talus and calcaneus appear spared. 2. Extensive cellulitis without obvious abscess. There is some nonenhancement along the midfoot concerning for tissue necrosis. 3. 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 4. No tendon tear or tenosynovitis is seen. [employer] Workstation ID: [id number] MR Foot Right With And Without Contrast Final Result 1. Prior forefoot resection. Cellulitis of the surgical stump is seen associated with small ulceration. 2. No abscess. 3. No MR signs of osteomyelitis. 4. Zwde-eu-cvwetobf mid/hindfoot osteoarthritis. 5. Remote sprains of the ATFL and deep fibers of the deltoid ligament, as above. [employer] Workstation ID: [id number] XR Foot Left 3+ Views (Standard) Final Result No definite plain film evidence of osteomyelitis in the right or left foot Workstation ID: [id number] XR Foot Right 3+ Views (Standard) Final Result No definite plain film evidence of osteomyelitis in the right or left foot Workstation ID: [id number] XR Comparison Import Final Result CT Comparison Import Final Result XR Chest 1 View Final Result Shallow lungs with right basilar opacity, could be atelectasis or pneumonia Workstation ID: [id number] Medications 11/09/20 7:49 PM Lab Results Component Value Date WBC 11.42 (H) 11/09/2020 HGB 11.2 (L) 11/09/2020 HCT 35.8 (L) 11/09/2020 MCV 82.9 11/09/2020 PLT 337 11/09/2020 Lab Results Component Value Date GLUCOSE 85 11/09/2020 CALCIUM 7.6 (L) 11/09/2020 NA 135 11/09/2020 K 3.1 (L) 11/09/2020 CL 103 11/09/2020 BUN 10 11/09/2020 CREATININE 0.84 11/09/2020 Problem List Items Addressed This Visit Endocrine * (Principal) Secondary DM with DKA ([facility]) Relevant Medications insulin glargine (LANTUS) 100 unit/mL injection insulin glargine (LANTUS) 100 unit/mL injection insulin aspart U-100 (NovoLOG) 100 unit/mL injection insulin lispro (HumaLOG) injection 0-15 Units insulin lispro (HumaLOG) injection 0-30 Units insulin lispro (HumaLOG) injection 0-30 Units insulin lispro (HumaLOG) injection 0-30 Units insulin glargine (LANTUS) injection 32 Units (Start on 11/09/2020 9:00 PM) insulin glargine (LANTUS) injection 35 Units (Start on 2020 11:00 AM) Other Visit Diagnoses Uncontrolled type 2 diabetes mellitus with peripheral neuropathy ([facility]) Relevant Medications insulin glargine (LANTUS) 100 unit/mL injection insulin glargine (LANTUS) 100 unit/mL injection insulin aspart U-100 (NovoLOG) 100 unit/mL injection insulin lispro (HumaLOG) injection 0-15 Units insulin lispro (HumaLOG) injection 0-30 Units insulin lispro (HumaLOG) injection 0-30 Units insulin lispro (HumaLOG) injection 0-30 Units insulin glargine (LANTUS) injection 32 Units (Start on 11/09/2020 9:00 PM) insulin glargine (LANTUS) injection 35 Units (Start on 2020 11:00 AM) I discussed my management plans with Patient/and or Family member, and also discussed antibiotics therapy including side effects with Patient/and or Family member. Medical Decision Making: Moderate This note is created with the assistance of a speech-recognition program. While intending to generate a document that actually reflects the content of the visit, the document can still have some errors including those of syntax and sound a- like substitutions which may escape proofreading. In such instances, actual meaning can be extrapolated by contextual derivation. * Leanne Cherry DPM - 11/09/2020 6:13 PM EST Progress Inpatient Follow-up 11/09/2020 Leanne Cherry DPM [facility] Patient: More Kingsley . Date of : 1965 (54 y.o.) PCP: Cheng Staples CNP ASSESSMENT/PLAN: More Kingsley 54 y.o. male with history of left midfoot abscess with possible underlying osteomyelitis vs charcot. Right plantar midfoot ulceration with history of right forefoot amputation. Diabeticneuropathy to bilateral feet. Plan: Pt examined at bedside Discussed clinical findings with pt Wound vac intact to left foot functioning at 125 mmhg Keep wound vac intact until Wednesday Continue IV antibiotics per Dr. Bell's recs. Tentative plans for surgical I&D on Wednesday SUBJECTIVE: History Since Last Visit: Pt is resting in bed. Admits to improvement in left foot discomfort. No significant events overnight. C/o nausea during the night. Denies any fevers, vomiting, chest pain, chest pressure, SOB, calf pain or consitutional symptoms. OBJECTIVE: Physical Examination: BP 137/84 Pulse 96 Temp 98.3 F (36.8 C) (Oral) Resp 16 Ht 5' 10 Wt 105 kg (231 lb 7.7 oz) SpO2 96% BMI 33.21 kg/m Wound Vac intact with minimal drainage, left foot. Neuro: Pt profoundly neuropathic to bilateral feet Vascular: Pulses not palpated today. Dressing to right foot dry and intact, no drainage noted. Bothfeet are warm to touch. M/S: Patient is able to wiggle digits. Compartments soft and compressible. No calf pain. Laboratory and Additional Data Reviewed: Reviewed:[id number]} * Chuyita Arias MD - 11/09/2020 11:50 AM EST [facility] Medicine Inpatient H&P 11/09/2020 Chuyita Arias MD [facility] Patient: More Kingsley Jr. Date of : 1965 (54 y.o.) PCP: Cheng Staples, BOX PERSON Assessment More Kingsley is a 54 y.o. male is known for hypertension there is mellitus hyperlipidemia chronic kidney disease stage III with creatinine baseline is 1.3 and GFR 40 to 45% presumed diabetic nephropathy, is here due to swelling and pain in the left for this for the past 2 to 3 days, has also ulceron the right foot, reported feeling fatigue loss of appetite headaches, denies fevers or chills wasevaluated emergency department blood glucose elevated close to 400, elevated lactic acid and ketones, leukocytosis and acute kidney injury his creatinine is 1.8, tachycardia with frequent PVCs IMP -sepsis due to Left foot cellulitis and osteomyelitis -Acute kidney injury prerenal azotemia and infection related -Recurrent PVCs and often noticed bigeminy -Hypokalemia and hypophosphatemia -Lactic acidosis and mild ketosis PLAN Left foot abscess and osteomyelitis Sepsis Seen and examined Clinically better Plan of pain of left foot No fever Blood culture are negative Wound culture grew Moderate Growth Staphylococcus aureusAbnormal MRI of left foot 1. Abnormal appearance of the midfoot particularly at the 2nd through 5th TMT joints and navicular-middle cuneiform articulations. Given the nearby dorsal skin wound, and degree of inflammation, these findings are concerning for multifocal septic arthropathy and osteomyelitis. Superimposed neuropathic arthropathy is not excluded. The talus and calcaneus appear spared. 2. Extensive cellulitis without obvious abscess. There is some nonenhancement along the midfoot concerning for tissue necrosis. 3. 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 4. No tendon tear or tenosynovitis is seen. S/p I&D of left foot abscess Podiatry is following Continue with Zosyn and vancomycin Infectious diseases following Acute renal failure Improving Continue with IV fluid BMP daily Diabetes type 2: Uncontrolled Endocrinology is following Lantus 30 units twice daily Sliding scale Hypokalemia: Replaced Hyponatremia: Continue with IV fluids BMP in the morning DVT prophylaxis: DVT prophylaxis: Heparin subcu daily 11/08 Patient had low-grade fever yesterday denies any chest pain shortness of breath or nausea reported mild to moderate foot pain Continue cefazolin IV Add Dilaudid 1 mg IV once when the patient get wound VAC on and continue Percocet as needed Hypokalemia replaced with potassium chloride Blood sugar is okay continue sliding scale coverage and current dose of Lantus 11/09 Patient is better controlled today patient had low-grade fever 99.4 yesterday and 99.2 today statuspost wound VAC done yesterday Continue IV cefazolin and follow podiatry recommendations Mild hypokalemia 3.1 replaced with potassium chloride patient preferred to get IV potassium chloride instead of oral state that ordered irritate his stomach I will order 40 mEq of IV potassium Blood sugars controlled continue current dose of insulin Continue CBC and BMP check daily SUBJECTIVE: Chief Complaint: Left foot pain and swelling History of Presenting Illness: More Kingsley is a 54 y.o. male is known for hypertension there is mellitus hyperlipidemia chronic kidney disease stage III with creatinine baseline is 1.3 and GFR 40 to 45% presumed diabetic nephropathy, is here due to swelling and pain in the left for this for the past 2 to 3 days, has also ulceron the right foot, reported feeling fatigue loss of appetite headaches, denies fevers or chills wasevaluated emergency department blood glucose elevated close to 400, elevated lactic acid and ketones, leukocytosis and acute kidney injury his creatinine is 1.8, tachycardia with frequent PVCs Review of Systems: 10 systems reviewed and negative other than noted in HPI OBJECTIVE: Physical Examination: BP 110/75 Pulse 97 Temp 98.5 F (36.9 C) (Oral) Resp 16 Ht 5' 10 Wt 105 kg (231 lb 7.7 oz) SpO2 92% BMI 33.21 kg/m General Appearance: Alert, well appearing, and in no acute distress. HEENT: Head - Normocephalic, atraumatic. Eyes - JADE bilaterally and EOMI. Ears - normal external appearance, hearing intact. Nose - normal, no erythema. Throat - mucous membranes moist, pharynx without lesions. Neck: Supple, trachea midline. Cardiovascular: S1, S2 normal. No murmurs, rubs, clicks or gallops appreciated. No pedal edema. Respiratory: Lungs clear to auscultation, no wheezes, rales or rhonchi heard. Abdomen: Soft, non-tender, normal bowel sounds, non-distended, no masses or organomegaly appreciated. Neurological: Grossly normal motor and sensory exam. No focal deficits. Musculoskeletal: No joint tenderness, deformity or swelling. Skin: Normal coloration and turgor. No rashes. Psych: Alert, oriented x 3. Normal mood and affect. Laboratory and Additional Data Reviewed: Results/Medications Reviewed 11/09/20 11:50 AM: Results from last 7 days Lab Units 11/09/20 0519 11/08/20 0519 11/06/20 0548 SODIUM mmol/L 135 135 132* POTASSIUM mmol/L 3.1* 3.4* 3.8 CHLORIDE mmol/L 103 104 104 BUN mg/dL 10 14 36* CREATININE mg/dL 0.84 0.98 1.54* GLUCOSE mg/dL 85 136* 281* CALCIUM mg/dL 7.6* 7.8* 7.7* Results from last 7 days Lab Units 11/09/20 0519 11/07/20 1153 11/06/20 0548 WBC K/mcL 11.42* 12.03* 15.27* HGB g/dL 11.2* 11.2* 10.8* HCT % 35.8* 35.6* 34.1* PLT K/mcL 337 282 248 Results from last 7 days Lab Units 11/05/20 2211 11/05/20 1936 TROPONIN I ng/L <15 <15 Results from last 7 days Lab Units 11/05/20 1936 ALK PHOS U/L 95 BILIRUBIN TOTAL mg/dL 0.9 TOTAL PROTEIN g/dL 8.1* ALTR U/L 16 AST U/L 26 CULTURES: Reviewed 11:50 AM IMAGING: Reviewed 11:50 AM * Olga Wheeler CNP - 11/09/2020 8:26 AM EST Patient ID: Patient Name: More Kingsley Jr. Admit Date: 11/05/2020 MR #: [id number] : 1965 Current location: 3015 Physicians: Cheng Staples CNP (Family); Dr. Pinedo (Referring) Reason for consult: Type 2 diabetes out of control Assessment/Plan: Dx: Type 2 diabetes, under poor control Currently taking as outpatient: Metformin 1000 mg twice daily Humalog insulin: 1:3 units at breakfast; 1:3 units at lunch; 1:3 units at supper Lantus insulin: 38 units at breakfast; 36 units at bedtime Current Hemoglobin A1C= Lab Results Component Value Date HGBA1C 8.2 (H) 11/05/2020 NOTES: BG and labs reviewed since admission. Patient reports taking QID insulin as an outpatient. Admitted with bilateral foot wounds and cellulitis. 11/07 BG and labs reviewed. WBC 12.03, Hgb 11.2, Hct 35.6 Plt 282k. 11/08: BG and labs reviewed. Patient's BG ranging from 107-221 over last 24 hours. Currently on lantus 35 units BID and humalog 1:3 TID with meals. Na: 135; K: 3.4; Creat: 0.98; eGFR: 88; Ca: 7.8; CBC: WBC: 12.03; Hgb: 11.2; Hct: 35.6; Plt: 282. Patient reports No complaints. 11/09: BG and labs reviewed over the past 24 hours. Current insulin doses include Lantus 35u BID, and Humalog 1:3 CHO ratio at meals, + sliding scale insulin with meals. MRI of the foot, with Extensive cellulitis, and concern for septic arthroplathy and osteomyelitis of the left foot. He cont. To be followed by ID, Dr Bell. The patient is wearing a wound VAC. Blood Glucoses: 11/05: ___---___---___---309 11/06: 303---346---301---327 11/07 209---206---221---205---178 11/08: 107---109---98---105 11/09: 61----96 Plan: 1. Rx changes: Adjust insulin doses. Humalog insulin: 1:3 units at breakfast; 1:3 units at lunch; 1:3 units at supper Lantus insulin: 25 units at breakfast; 25 units at bedtime Hold metformin. 11/07 Increase Lantus to 35 units BID and continue Humalog 1:3 ins:CHO ratio. Left foot with osteomyelitis on MRI. 11/08: CPM. 11/09: Lantus 32u HS, cont. 35u AM, and cont. 1:3 CHO ratios at meals. 2. Education: Reviewed ABCs of diabetes management (respective goals in parentheses): A1C (7.0-8.0), blood pressure (<130/80), and cholesterol (LDL <100). Referral to Diabetes Education Referral to Nutrition therapy Subjective: 11/09: Patient resting quietly in bed. He is feeling fairly well. He denies any complaints currently. Brief HPI: Mr. Kingsley is a 54 year old male with a past medical history of type 2 DM, HTN, hyperlipidemia who presented for evaluation of left lower extremity cellulitis swelling and pain along with lesions to right foot. Patient reports no chest pain. Occasional SOB. No blurred or double vision. Nofever or chills. Patient reports occasional nausea. Patient's labs reviewed with creat 1.82, K: 3.3, Glucose 309. Patient has had diabetes for 18 years. Diagnosed in 2001. Patient is currently taking Humalog insulin: 1:3 units at breakfast; 1:3 units at lunch; 1:3 units at supper Lantus insulin: 38 units at breakfast; 36 units at bedtime along with metformin 1000 mg BID as an out patient. Patient has taken Insulin for 12-14 years. Currently the patient is receiving no insulinat this time. Blood sugar levels since admission have been ranging from 303-309 mg/dL. Current monitoring regimen: home blood tests - 1-4 times daily Complications of diabetes include: Retinopathy: Positive: Proliferative diabetic retinopathy and Intraocular injection Nephropathy: Positive Peripheral Neuropathy: Positive Autonomic Neuropathy: Negative Allergies: No Known Allergies Home Medications: Outpatient Medications Marked as Taking for the 11/05/20 encounter (Hospital Encounter): insulin aspart U-100 (NovoLOG) 100 unit/mL injection, Inject under the skin 3 (three) times a day before meals Sliding scale, patient unsure of doses. . insulin glargine (LANTUS) 100 unit/mL injection, Inject 38 Units under the skin daily AM . insulin glargine (LANTUS) 100 unit/mL injection, Inject 32 Units under the skin nightly HS . metFORMIN (GLUCOPHAGE) 1000 MG tablet, Take 1,000 mg by mouth 2 (two) times a day with meals . Current Medications: ceFAZolin (ANCEF) IVPB 2,000 mg Intravenous Q8H heparin (porcine) 5,000 Units Subcutaneous Q8H SANCHO insulin glargine 35 Units Subcutaneous BID lispro insulin 0-15 Units Subcutaneous at bedtime insulin lispro 0-30 Units Subcutaneous QAM AC insulin lispro 0-30 Units Subcutaneous Daily before lunch insulin lispro 0-30 Units Subcutaneous Before dinner potassium chloride SA 40 mEq Oral Daily acetaminophen, sodium chloride (PF) AND sodium chloride (PF) AND gadoterate meglumine, ipratropium-albuteroL, nalOXone AND Notify physician AND naloxone, ondansetron, oxyCODONE-acetaminophen, sodium chloride 0.9 % Review of Systems: Review of Systems Constitutional: Positive for fatigue. Negative for unexpected weight change. Eyes: Negative for visual disturbance. Respiratory: Positive for shortness of breath. Negative for cough. Cardiovascular: Negative for chest pain and leg swelling. Gastrointestinal: Positive for nausea. Negative for abdominal pain, constipation, diarrhea and vomiting. Endocrine: Negative for polydipsia, polyphagia and polyuria. Genitourinary: Negative for frequency and urgency. Musculoskeletal: Positive for arthralgias and joint swelling. Skin: Positive for rash (redness and swelling to LLE) and wound (multiple wounds to foot). Neurological: Negative for numbness and headaches. Psychiatric/Behavioral: Negative for agitation and sleep disturbance. The patient is not nervous/anxious. History: Past Medical History: Diagnosis Date Diabetes mellitus, type 2 (HCC) Diabetic nephropathy (HCC) Diabetic neuropathy (HCC) Diabetic retinopathy (HCC) Hyperlipidemia Hypertension Nephropathy Past Surgical History: Procedure Laterality Date AMPUTATION FOOT Left forefoot HAND SURGERY Left Family History Problem Relation Age of Onset Diabetes Mother Diabetes Father Heart disease Father Diabetes Brother Social History Tobacco Use Smoking status: Never Smoker Smokeless tobacco: Never Used Substance Use Topics Alcohol use: Yes Comment: rarely Drug use: Never The following portions of the patient's history were reviewed and updated as appropriate: allergies, current medications, past family history, past medical history, past social history, past surgicalhistory and problem list. Objective: BP (!) 163/91 Pulse 76 Temp 99.4 F (37.4 C) (Oral) Resp 16 Ht 5' 10 Wt 105 kg (231 lb 7.7 oz) SpO2 92% BMI 33.21 kg/m Wt Readings from Last 3 Encounters: 11/05/20 105 kg (231 lb 7.7 oz) 11/06/20 104.3 kg (230 lb) 11/05/20 105 kg (231 lb 7.7 oz) Physical Exam: Physical Exam Constitutional: He is oriented to person, place, and time. He appears well- developed and well-nourished. HENT: Head: Normocephalic and atraumatic. Eyes: Pupils are equal, round, and reactive to light. Conjunctivae are normal. Neck: Normal range of motion. Neck supple. No thyromegaly present. Cardiovascular: Normal rate, regular rhythm, normal heart sounds and intact distal pulses. No murmur heard. Pulmonary/Chest: Effort normal and breath sounds normal. Abdominal: Soft. Musculoskeletal: Normal range of motion. General: Deformity (left foot) and edema present. Neurological: He is alert and oriented to person, place, and time. Skin: Skin is warm and dry. There is erythema. Redness and swelling to left lower extremity Right foot status post forefoot amputation along with multiple lesions in various phases of healing. Ulcer with packing in place right foot. Left foot Wound VAC in place. Psychiatric: He has a normal mood and affect. His behavior is normal. Judgment and thought content normal. Laboratory Review: BP (!) 163/91 Pulse 76 Temp 99.4 F (37.4 C) (Oral) Resp 16 Ht 5' 10 Wt 105 kg (231 lb 7.7 oz) SpO2 92% BMI 33.21 kg/m Lab Results Component Value Date HGBA1C 8.2 (H) 11/05/2020 Glucose (mg/dL) Date Value 11/09/2020 85 Creatinine (mg/dL) Date Value 11/09/2020 0.84 No results found for: CHOL, TRIG, HDL, LDLCALC, LDL Lab Results Component Value Date TSH 0.80 11/06/2020 No results found for: FREET4 Lab Results Component Value Date WBC 11.42 (H) 11/09/2020 HGB 11.2 (L) 11/09/2020 HCT 35.8 (L) 11/09/2020 MCV 82.9 11/09/2020 PLT 337 11/09/2020 This SmartLink has not been configured with any valid records. This SmartLink has not been configured with any valid records. Laboratory and Additional Data Reviewed: Laboratory 11/09/20 8:27 AM Medications 11/09/20 8:27 AM Transcriptions 11/09/20 8:27 AM Thank you for this consultation, we will continue to follow this patient with you. Electronically signed by Olga CHAVEZ 208:30 AM Olga Wheeler CNP * Marcella Bell MD - 11/08/2020 6:30 PM EST Patient Name: More Kingsley Jr. Admit Date: MR #: [id number] : 1965 Physicians: Cheng Staples CNP (Family); No ref. provider found (Referring) Assessment: Patient with 1. Left foot abscess 2. Suspicion for osteomyelitis 3. Uncontrolled diabetes. Plan. Continue patient on current therapy Okay to DC IV vancomycin Okay to DC IV Zosyn. Start patient on IV cefazolin. I reviewed labs, including cultures, with MSSA, and be strep. I appreciate content production specialist evaluation. Patient needs incision and drainage of left foot abscess I reviewed MRI of the foot, with Extensive cellulitis, and concern for septic arthroplathy and osteomyelitis of the left foot Dressing according to content production specialist recommendation Endocrinology evaluation for adequate blood sugar control We will continue to follow with you. Discussed with Dr. Conte on management plan, and also discussed with Dr. Cherry on management plan. May be scheduling for a VAC dressing. Subjective: Patient was reevaluated again today, with no new symptoms, no fever, podiatry has done some debridement at the bedside, foot has been dressed. Exam: PACU Vitals 11/08/20 1552 BP: 119/76 Pulse: 99 Resp: Temp: 97.9 F (36.6 C) SpO2: 94% Allergies: Patient has no known allergies. Current Facility-Administered Medications: acetaminophen (TYLENOL) tablet 650 mg, 650 mg, Oral, Q6H PRN, Jennifer Gamble CNP, 650 mg at 11/06/20 2104 ceFAZolin (ANCEF) IVPB 2 g (premix), 2,000 mg, Intravenous, Q8H, Mady Russell CNP, Last Rate: 100 mL/hr at 11/08/20 1320, 2,000 mg at 11/08/20 1320 sodium chloride (PF) (NS) 0.9 % contrast line flush 10 mL, 10 mL, Intravenous, Once in imaging AND sodium chloride (PF) (NS) 0.9 % contrast line flush 10 mL, 10 mL, Intravenous, Once in imaging AND gadoterate meglumine (DOTAREM) injection 20 mL, 20 mL, Intravenous, Once in imaging, Bethanie Pinedo MD heparin (porcine) injection 5,000 Units, 5,000 Units, Subcutaneous, Q8H SANCHO, Chuyita Arias MD, 5,000 Units at 11/08/20 1318 insulin glargine (LANTUS) injection 35 Units, 35 Units, Subcutaneous, BID, Marvel Mcmillan MD, 35 Units at 11/08/20 0931 insulin lispro (HumaLOG) injection 0-15 Units, 0-15 Units, Subcutaneous, at bedtime, Jack Hair CNP, 2 Units at 11/06/20 2105 insulin lispro (HumaLOG) injection 0-30 Units, 0-30 Units, Subcutaneous, QAM AC, Jack Coffey CNP, 4 Units at 11/07/20 0838 insulin lispro (HumaLOG) injection 0-30 Units, 0-30 Units, Subcutaneous, Daily before lunch, Jack Coffey CNP, 3 Units at 11/08/20 1313 insulin lispro (HumaLOG) injection 0-30 Units, 0-30 Units, Subcutaneous, Before dinner, Jack Coffey CNP, 7 Units at 11/07/20 1814 ipratropium-albuteroL (DUO-NEB) 0.5-2.5 mg/3 ml nebulizer solution 3 mL, 3 mL, Inhalation, Q2H PRN,Flako Pinedo MD lactated Ringers infusion, 100 mL/hr, Intravenous, Continuous, Flako Pinedo MD, Last Rate: 100 mL/hr at 11/08/20 1632, 100 mL/hr at 11/08/20 1632 naloxone (NARCAN) injection 0.1 mg, 0.1 mg, Intravenous, PRN AND Notify physician, , , Until Discontinued AND naloxone (NARCAN) injection 0.4 mg, 0.4 mg, Intravenous, PRN, Jean Farley MD ondansetron (ZOFRAN) injection 4 mg, 4 mg, Intravenous, Q6H PRN, Flako Pinedo MD, 4 mg at 11/08/20 0046 oxyCODONE-acetaminophen (PERCOCET) 5-325 mg per tablet 1 tablet, 1 tablet, Oral, Q4H PRN, Jean Farley MD, 1 tablet at 11/08/20 1648 potassium chloride SA (K-DUR,KLOR-CON) CR tablet 40 mEq, 40 mEq, Oral, Daily, Flako Pinedo MD, 40 mEq at 11/08/20 0931 sodium chloride 0.9% (NS), 0-150 mL/hr, Intravenous, PRN, Tanja Whitmore, [facility],PharmD PMH/PSH/SH/ reviewed, no change : Review of Systems: All systems were reviewed no change: Medications Reviewed. Chart Reviewed. Exam Findings: HEENT: Atraumatic/Pupils equal & reactive Neck: Supple, no rigidity ENT: No oral candidiasis Chest: Lungs clear bilaterally, no wheezing, or rales CVS: Normal S1 & S2+, Normal Rhythm Abdomen: Obese, normal symmetry, Soft/non-tender. Benign, BS+ Extremities: +Deformities, edema and deformity of the foot, with left foot dressed currently statuspost debridement and dressing soaked. Right foot status post transmet, and plantar ulceration noted. 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 Please see pictures. Justice Catheter: None IV Access: Yes I reviewed Medications. I reviewed Labs. Laboratory and Additional Data Reviewed: Laboratory 11/08/20 6:30 PM Microbiology 11/08/20 6:30 PM Radiology 11/08/20 6:30 PM MR Foot Left With And Without Contrast Final Result 1. Abnormal appearance of the midfoot particularly at the 2nd through 5th TMT joints and navicular-middle cuneiform articulations. Given the nearby dorsal skin wound, and degree of inflammation, these findings are concerning for multifocal septic arthropathy and osteomyelitis. Superimposed neuropathic arthropathy is not excluded. The talus and calcaneus appear spared. 2. Extensive cellulitis without obvious abscess. There is some nonenhancement along the midfoot concerning for tissue necrosis. 3. 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 4. No tendon tear or tenosynovitis is seen. MPH/REach Workstation ID: [id number] MR Foot Right With And Without Contrast Final Result 1. Prior forefoot resection. Cellulitis of the surgical stump is seen associated with small ulceration. 2. No abscess. 3. No MR signs of osteomyelitis. 4. [id number] mid/hindfoot osteoarthritis. 5. Remote sprains of the ATFL and deep fibers of the deltoid ligament, as above. MPH/Dizzion Workstation ID: [id number] XR Foot Left 3+ Views (Standard) Final Result No definite plain film evidence of osteomyelitis in the right or left foot Workstation ID: [id number] XR Foot Right 3+ Views (Standard) Final Result No definite plain film evidence of osteomyelitis in the right or left foot Workstation ID: [id number] XR Comparison Import Final Result CT Comparison Import Final Result XR Chest 1 View Final Result Shallow lungs with right basilar opacity, could be atelectasis or pneumonia Workstation ID: [id number] Medications 11/08/20 6:30 PM Lab Results Component Value Date WBC 12.03 (H) 11/07/2020 HGB 11.2 (L) 11/07/2020 HCT 35.6 (L) 11/07/2020 MCV 83.8 11/07/2020 PLT 282 11/07/2020 Lab Results Component Value Date GLUCOSE 136 (H) 11/08/2020 CALCIUM 7.8 (L) 11/08/2020 NA 135 11/08/2020 K 3.4 (L) 11/08/2020 CL 104 11/08/2020 BUN 14 11/08/2020 CREATININE 0.98 11/08/2020 Problem List Items Addressed This Visit Endocrine * (Principal) Secondary DM with DKA (HCC) Relevant Medications insulin glargine (LANTUS) 100 unit/mL injection insulin glargine (LANTUS) 100 unit/mL injection insulin aspart U-100 (NovoLOG) 100 unit/mL injection insulin lispro (HumaLOG) injection 0-15 Units insulin lispro (HumaLOG) injection 0-30 Units insulin lispro (HumaLOG) injection 0-30 Units insulin lispro (HumaLOG) injection 0-30 Units insulin glargine (LANTUS) injection 35 Units Other Visit Diagnoses Uncontrolled type 2 diabetes mellitus with peripheral neuropathy (HCC) Relevant Medications insulin glargine (LANTUS) 100 unit/mL injection insulin glargine (LANTUS) 100 unit/mL injection insulin aspart U-100 (NovoLOG) 100 unit/mL injection insulin lispro (HumaLOG) injection 0-15 Units insulin lispro (HumaLOG) injection 0-30 Units insulin lispro (HumaLOG) injection 0-30 Units insulin lispro (HumaLOG) injection 0-30 Units insulin glargine (LANTUS) injection 35 Units I discussed my management plans with Patient/and or Family member, and also discussed antibiotics therapy including side effects with Patient/and or Family member. Medical Decision Making: Moderate This note is created with the assistance of a speech-recognition program. While intending to generate a document that actually reflects the content of the visit, the document can still have some errors including those of syntax and sound a- like substitutions which may escape proofreading. In such instances, actual meaning can be extrapolated by contextual derivation. * Chuyita Arias MD - 11/08/2020 12:13 PM EST [facility] Medicine Inpatient H&P 11/08/2020 Chuyita Arias MD [facility] Patient: More Kingsley . Date of : 1965 (54 y.o.) PCP: Cheng Staples, BOX PERSON Assessment More Kingsley is a 54 y.o. male is known for hypertension there is mellitus hyperlipidemia chronic kidney disease stage III with creatinine baseline is 1.3 and GFR 40 to 45% presumed diabetic nephropathy, is here due to swelling and pain in the left for this for the past 2 to 3 days, has also ulceron the right foot, reported feeling fatigue loss of appetite headaches, denies fevers or chills wasevaluated emergency department blood glucose elevated close to 400, elevated lactic acid and ketones, leukocytosis and acute kidney injury his creatinine is 1.8, tachycardia with frequent PVCs IMP -sepsis due to Left foot cellulitis and osteomyelitis -Acute kidney injury prerenal azotemia and infection related -Recurrent PVCs and often noticed bigeminy -Hypokalemia and hypophosphatemia -Lactic acidosis and mild ketosis PLAN Left foot abscess and osteomyelitis Sepsis Seen and examined Clinically better Plan of pain of left foot No fever Blood culture are negative Wound culture grew Moderate Growth Staphylococcus aureusAbnormal MRI of left foot 1. Abnormal appearance of the midfoot particularly at the 2nd through 5th TMT joints and navicular-middle cuneiform articulations. Given the nearby dorsal skin wound, and degree of inflammation, these findings are concerning for multifocal septic arthropathy and osteomyelitis. Superimposed neuropathic arthropathy is not excluded. The talus and calcaneus appear spared. 2. Extensive cellulitis without obvious abscess. There is some nonenhancement along the midfoot concerning for tissue necrosis. 3. 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 4. No tendon tear or tenosynovitis is seen. S/p I&D of left foot abscess Podiatry is following Continue with Zosyn and vancomycin Infectious diseases following Acute renal failure Improving Continue with IV fluid BMP daily Diabetes type 2: Uncontrolled Endocrinology is following Lantus 30 units twice daily Sliding scale Hypokalemia: Replaced Hyponatremia: Continue with IV fluids BMP in the morning DVT prophylaxis: DVT prophylaxis: Heparin subcu daily 11/08 Patient had low-grade fever yesterday denies any chest pain shortness of breath or nausea reported mild to moderate foot pain Continue cefazolin IV Add Dilaudid 1 mg IV once when the patient get wound VAC on and continue Percocet as needed Hypokalemia replaced with potassium chloride Blood sugar is okay continue sliding scale coverage and current dose of Lantus SUBJECTIVE: Chief Complaint: Left foot pain and swelling History of Presenting Illness: More Kingsley is a 54 y.o. male is known for hypertension there is mellitus hyperlipidemia chronic kidney disease stage III with creatinine baseline is 1.3 and GFR 40 to 45% presumed diabetic nephropathy, is here due to swelling and pain in the left for this for the past 2 to 3 days, has also ulceron the right foot, reported feeling fatigue loss of appetite headaches, denies fevers or chills wasevaluated emergency department blood glucose elevated close to 400, elevated lactic acid and ketones, leukocytosis and acute kidney injury his creatinine is 1.8, tachycardia with frequent PVCs Review of Systems: 10 systems reviewed and negative other than noted in HPI OBJECTIVE: Physical Examination: BP (!) 146/84 Pulse (!) 102 Temp 99.1 F (37.3 C) (Oral) Resp 14 Ht 5' 10 Wt 105 kg (231 lb 7.7 oz) SpO2 94% BMI 33.21 kg/m General Appearance: Alert, well appearing, and in no acute distress. HEENT: Head - Normocephalic, atraumatic. Eyes - JDAE bilaterally and EOMI. Ears - normal external appearance, hearing intact. Nose - normal, no erythema. Throat - mucous membranes moist, pharynx without lesions. Neck: Supple, trachea midline. Cardiovascular: S1, S2 normal. No murmurs, rubs, clicks or gallops appreciated. No pedal edema. Respiratory: Lungs clear to auscultation, no wheezes, rales or rhonchi heard. Abdomen: Soft, non-tender, normal bowel sounds, non-distended, no masses or organomegaly appreciated. Neurological: Grossly normal motor and sensory exam. No focal deficits. Musculoskeletal: No joint tenderness, deformity or swelling. Skin: Normal coloration and turgor. No rashes. Psych: Alert, oriented x 3. Normal mood and affect. Laboratory and Additional Data Reviewed: Results/Medications Reviewed 11/08/20 12:13 PM: Results from last 7 days Lab Units 11/08/20 0519 11/06/20 0548 11/05/20 1936 SODIUM mmol/L 135 132* 130* POTASSIUM mmol/L 3.4* 3.8 3.3* CHLORIDE mmol/L 104 104 97* BUN mg/dL 14 36* 42* CREATININE mg/dL 0.98 1.54* 1.82* GLUCOSE mg/dL 136* 281* 309* CALCIUM mg/dL 7.8* 7.7* 8.2* Results from last 7 days Lab Units 11/07/20 1153 11/06/20 0548 11/05/20 1936 WBC K/mcL 12.03* 15.27* 15.85* HGB g/dL 11.2* 10.8* 11.9* HCT % 35.6* 34.1* 37.7* PLT K/mcL 282 248 274 Results from last 7 days Lab Units 11/05/20 2211 11/05/20 1936 TROPONIN I ng/L <15 <15 Results from last 7 days Lab Units 11/05/20 1936 ALK PHOS U/L 95 BILIRUBIN TOTAL mg/dL 0.9 TOTAL PROTEIN g/dL 8.1* ALTR U/L 16 AST U/L 26 CULTURES: Reviewed 12:13 PM IMAGING: Reviewed 12:13 PM * Jack Coffey CNP - 11/08/2020 9:25 AM EST Patient ID: Patient Name: More Kingsley Jr. Admit Date: 11/05/2020 MR #: [id number] : 1965 Current location: [facility] [place] Physicians: Cheng Staples CNP (Family); Dr. Pinedo (Referring) Reason for consult: Type 2 diabetes out of control Assessment/Plan: Dx: Type 2 diabetes, under poor control Currently taking as outpatient: Metformin 1000 mg twice daily Humalog insulin: 1:3 units at breakfast; 1:3 units at lunch; 1:3 units at supper Lantus insulin: 38 units at breakfast; 36 units at bedtime Current Hemoglobin A1C= Lab Results Component Value Date HGBA1C 8.2 (H) 11/05/2020 NOTES: BG and labs reviewed since admission. Patient reports taking QID insulin as an outpatient. Admitted with bilateral foot wounds and cellulitis. 11/07 BG and labs reviewed. WBC 12.03, Hgb 11.2, Hct 35.6 Plt 282k. 11/08: BG and labs reviewed. Patient's BG ranging from 107-221 over last 24 hours. Currently on lantus 35 units BID and humalog 1:3 TID with meals. Na: 135; K: 3.4; Creat: 0.98; eGFR: 88; Ca: 7.8; CBC: WBC: 12.03; Hgb: 11.2; Hct: 35.6; Plt: 282. Patient reports No complaints. Blood Glucoses: 11/05: ___---___---___---309 11/06: 303---346---301---327 11/07 209---206---221---205---178 11/08: 107--- Plan: 1. Rx changes: Adjust insulin doses. Humalog insulin: 1:3 units at breakfast; 1:3 units at lunch; 1:3 units at supper Lantus insulin: 25 units at breakfast; 25 units at bedtime Hold metformin. 11/07 Increase Lantus to 35 units BID and continue Humalog 1:3 ins:CHO ratio. Left foot with osteomyelitis on MRI. 11/08: CPM. 2. Education: Reviewed ABCs of diabetes management (respective goals in parentheses): A1C (7.0-8.0), blood pressure (<130/80), and cholesterol (LDL <100). Referral to Diabetes Education Referral to Nutrition therapy Subjective: Brief HPI: Mr. Kingsley is a 54 year old male with a past medical history of type 2 DM, HTN, hyperlipidemia who presented for evaluation of left lower extremity cellulitis swelling and pain along with lesions to right foot. Patient reports no chest pain. Occasional SOB. No blurred or double vision. Nofever or chills. Patient reports occasional nausea. Patient's labs reviewed with creat 1.82, K: 3.3, Glucose 309. Patient has had diabetes for 18 years. Diagnosed in 2001. Patient is currently taking Humalog insulin: 1:3 units at breakfast; 1:3 units at lunch; 1:3 units at supper Lantus insulin: 38 units at breakfast; 36 units at bedtime along with metformin 1000 mg BID as an out patient. Patient has taken Insulin for 12-14 years. Currently the patient is receiving no insulinat this time. Blood sugar levels since admission have been ranging from 303-309 mg/dL. Current monitoring regimen: home blood tests - 1-4 times daily Complications of diabetes include: Retinopathy: Positive: Proliferative diabetic retinopathy and Intraocular injection Nephropathy: Positive Peripheral Neuropathy: Positive Autonomic Neuropathy: Negative Allergies: No Known Allergies Home Medications: Outpatient Medications Marked as Taking for the 11/05/20 encounter (Hospital Encounter): insulin aspart U-100 (NovoLOG) 100 unit/mL injection, Inject under the skin 3 (three) times a day before meals Sliding scale, patient unsure of doses. . insulin glargine (LANTUS) 100 unit/mL injection, Inject 38 Units under the skin daily AM . insulin glargine (LANTUS) 100 unit/mL injection, Inject 32 Units under the skin nightly HS . metFORMIN (GLUCOPHAGE) 1000 MG tablet, Take 1,000 mg by mouth 2 (two) times a day with meals . Current Medications: ceFAZolin (ANCEF) IVPB 2,000 mg Intravenous Q8H insulin glargine 35 Units Subcutaneous BID lispro insulin 0-15 Units Subcutaneous at bedtime insulin lispro 0-30 Units Subcutaneous QAM AC insulin lispro 0-30 Units Subcutaneous Daily before lunch insulin lispro 0-30 Units Subcutaneous Before dinner potassium chloride SA 40 mEq Oral Daily acetaminophen, sodium chloride (PF) AND sodium chloride (PF) AND gadoterate meglumine, ipratropium-albuteroL, nalOXone AND Notify physician AND naloxone, ondansetron, oxyCODONE-acetaminophen Review of Systems: Review of Systems Constitutional: Positive for fatigue. Negative for unexpected weight change. Eyes: Negative for visual disturbance. Respiratory: Positive for shortness of breath. Negative for cough. Cardiovascular: Negative for chest pain and leg swelling. Gastrointestinal: Positive for nausea. Negative for abdominal pain, constipation, diarrhea and vomiting. Endocrine: Negative for polydipsia, polyphagia and polyuria. Genitourinary: Negative for frequency and urgency. Musculoskeletal: Positive for arthralgias and joint swelling. Skin: Positive for rash (redness and swelling to LLE) and wound (multiple wounds to foot). Neurological: Negative for numbness and headaches. Psychiatric/Behavioral: Negative for agitation and sleep disturbance. The patient is not nervous/anxious. History: Past Medical History: Diagnosis Date Diabetes mellitus, type 2 (HCC) Diabetic nephropathy (HCC) Diabetic neuropathy (HCC) Diabetic retinopathy (HCC) Hyperlipidemia Hypertension Nephropathy Past Surgical History: Procedure Laterality Date AMPUTATION FOOT Left forefoot HAND SURGERY Left Family History Problem Relation Age of Onset Diabetes Mother Diabetes Father Heart disease Father Diabetes Brother Social History Tobacco Use Smoking status: Never Smoker Smokeless tobacco: Never Used Substance Use Topics Alcohol use: Yes Comment: rarely Drug use: Never The following portions of the patient's history were reviewed and updated as appropriate: allergies, current medications, past family history, past medical history, past social history, past surgicalhistory and problem list. Objective: BP (!) 146/84 Pulse (!) 102 Temp 99.1 F (37.3 C) (Oral) Resp 14 Ht 5' 10 Wt 105 kg (231 lb 7.7 oz) SpO2 94% BMI 33.21 kg/m Wt Readings from Last 3 Encounters: 11/05/20 105 kg (231 lb 7.7 oz) 11/06/20 104.3 kg (230 lb) 11/05/20 105 kg (231 lb 7.7 oz) Physical Exam: Physical Exam Constitutional: He is oriented to person, place, and time. He appears well- developed and well-nourished. HENT: Head: Normocephalic and atraumatic. Eyes: Pupils are equal, round, and reactive to light. Conjunctivae are normal. Neck: Normal range of motion. Neck supple. No thyromegaly present. Cardiovascular: Normal rate, regular rhythm, normal heart sounds and intact distal pulses. No murmur heard. Pulmonary/Chest: Effort normal and breath sounds normal. Abdominal: Soft. Musculoskeletal: Normal range of motion. General: Deformity (left foot) and edema present. Neurological: He is alert and oriented to person, place, and time. Skin: Skin is warm and dry. There is erythema. Redness and swelling to left lower extremity Right foot status post forefoot amputation along with multiple lesions in various phases of healing. Ulcer with packing in place right foot. Psychiatric: He has a normal mood and affect. His behavior is normal. Judgment and thought content normal. Laboratory Review: BP (!) 146/84 Pulse (!) 102 Temp 99.1 F (37.3 C) (Oral) Resp 14 Ht 5' 10 Wt 105 kg (231 lb 7.7 oz) SpO2 94% BMI 33.21 kg/m Lab Results Component Value Date HGBA1C 8.2 (H) 11/05/2020 Glucose (mg/dL) Date Value 11/08/2020 136 (H) Creatinine (mg/dL) Date Value 11/08/2020 0.98 No results found for: CHOL, TRIG, HDL, LDLCALC, LDL Lab Results Component Value Date TSH 0.80 11/06/2020 No results found for: FREET4 Lab Results Component Value Date WBC 12.03 (H) 11/07/2020 HGB 11.2 (L) 11/07/2020 HCT 35.6 (L) 11/07/2020 MCV 83.8 11/07/2020 PLT 282 11/07/2020 This SmartLink has not been configured with any valid records. This SmartLink has not been configured with any valid records. Laboratory and Additional Data Reviewed: Laboratory 11/08/20 10:20 AM Medications 11/08/20 10:20 AM Transcriptions 11/08/20 10:20 AM Thank you for this consultation, we will continue to follow this patient with you. Jack Coffey CNP * Ryan Conte DPM - 11/08/2020 9:17 AM EST Progress Inpatient Follow-up 11/08/2020 Ryan Conte DPM [facility] Patient: More Kingsley Jr. Date of : 1965 (54 y.o.) PCP: Cheng Staples CNP ASSESSMENT/PLAN: More Kingsley 54 y.o. male with history of left midfoot abscess with possible underlying osteomyelitis vs charcot. Right plantar midfoot ulceration with history of right forefoot amputation. Diabeticneuropathy to bilateral feet. Plan: Pt examined at bedside Discussed clinical findings with pt Dressing and packing removed Expressed purulent exudate on wound examination DSD applied Wound Care to apply wound vac Discussed with ID, Dr Bell and Dr. Conte ATB to be managed by ID Will continue to follow No new Assessment & Plan notes have been filed under this hospital service since the last note was generated. Service: Podiatry SUBJECTIVE: History Since Last Visit: Pt examined at bedside. No significant events overnight. C/o nausea during the night. Denies any fevers, vomiting, chest pain, chest pressure, SOB, calf pain or consitutional symptoms. Pending Lab and Radiology Results Order Current Status Wound Aerobic Culture In process Blood Culture #1 Preliminary result Blood Culture #2 Preliminary result Urine Aerobic Culture Preliminary result Review of Systems: see HPI OBJECTIVE: Physical Examination: BP 122/70 Pulse 74 Temp 99.5 F (37.5 C) (Oral) Resp 14 Ht 5' 10 Wt 105 kg (231 lb 7.7 oz) SpO2 92% BMI 33.21 kg/m Dermatological: full thickness surgical incsion to dorsal aspect of left foot down to bone. Purulent exudate tracking medially estimated 3cm.Unable to palpate proximally. Neuro: Pt profoundly numb to bilateral feet Vascular: Pulses not palpated today. Dressing to right foot dry and intact, no drainage noted. Bothfeet are warm to touch. M/S: c/o pressure discomfort to left foot. Right forefoot lisfranc amputation.No calf pain. Laboratory and Additional Data Reviewed: Reviewed:[id number]} * Marcella Bell MD - 11/07/2020 7:38 PM EST Patient Name: More Kingsley Jr. Admit Date: MR #: [id number] : 1965 Physicians: Cheng Staples CNP (Family); No ref. provider found (Referring) Assessment: Patient with 1. Left foot abscess 2. Suspicion for osteomyelitis 3. Uncontrolled diabetes. Plan. Continue patient on current therapy Okay to DC IV vancomycin Okay to DC IV Zosyn. Start patient on IV cefazolin. I reviewed labs, including cultures, with MSSA, and be strep. I appreciate content production specialist evaluation. Patient needs incision and drainage of left foot abscess I reviewed MRI of the foot, with Extensive cellulitis, and concern for septic arthroplathy and osteomyelitis of the left foot Dressing according to content production specialist recommendation Endocrinology evaluation for adequate blood sugar control We will continue to follow with you. Subjective: Patient was reevaluated again today, with no new symptoms, no fever, podiatry has done some debridement at the bedside already. Exam: PACU Vitals 11/07/201930 BP: (!) 148/91 Pulse: (!) 103 Resp: 16 Temp: 97.4 F (36.3 C) SpO2: 92% Allergies: Patient has no known allergies. Current Facility-Administered Medications: acetaminophen (TYLENOL) tablet 650 mg, 650 mg, Oral, Q6H PRN, Jennifer Gamble CNP, 650 mg at 11/06/202103 ceFAZolin (ANCEF) IVPB 2 g (premix), 2,000 mg, Intravenous, Q8H, Mady Russell CNP, Last Rate: 100 mL/hr at 11/07/20 1358, 2,000 mg at 11/07/20 1358 sodium chloride (PF) (NS) 0.9 % contrast line flush 10 mL, 10 mL, Intravenous, Once in imaging AND sodium chloride (PF) (NS) 0.9 % contrast line flush 10 mL, 10 mL, Intravenous, Once in imaging AND gadoterate meglumine (DOTAREM) injection 20 mL, 20 mL, Intravenous, Once in imaging, Bethanie Pinedo MD insulin glargine (LANTUS) injection 30 Units, 30 Units, Subcutaneous, BID, Marvel Mcmillan MD insulin lispro (HumaLOG) injection 0-15 Units, 0-15 Units, Subcutaneous, at bedtime, Jack Hair CNP, 2 Units at 11/06/20 2105 insulin lispro (HumaLOG) injection 0-30 Units, 0-30 Units, Subcutaneous, QAM AC, Jack Coffey CNP, 4 Units at 11/07/20 0838 insulin lispro (HumaLOG) injection 0-30 Units, 0-30 Units, Subcutaneous, Daily before lunch, Jack Coffey CNP, 9 Units at 11/07/20 1357 insulin lispro (HumaLOG) injection 0-30 Units, 0-30 Units, Subcutaneous, Before dinner, Jack Coffey CNP, 7 Units at 11/07/20 1814 ipratropium-albuteroL (DUO-NEB) 0.5-2.5 mg/3 ml nebulizer solution 3 mL, 3 mL, Inhalation, Q2H PRN,Flako Pinedo MD lactated Ringers infusion, 100 mL/hr, Intravenous, Continuous, Flako Pinedo MD, Last Rate: 100 mL/hr at 11/07/201930, 100 mL/hr at 11/07/201930 naloxone (NARCAN) injection 0.1 mg, 0.1 mg, Intravenous, PRN AND Notify physician, , , Until Discontinued AND naloxone (NARCAN) injection 0.4 mg, 0.4 mg, Intravenous, PRN, Jean Farley MD ondansetron (ZOFRAN) injection 4 mg, 4 mg, Intravenous, Q6H PRN, Flako Pinedo MD, 4 mg at 11/07/20 1410 oxyCODONE-acetaminophen (PERCOCET) 5-325 mg per tablet 1 tablet, 1 tablet, Oral, Q4H PRN, Jean Farley MD, 1 tablet at 11/07/20 1403 potassium chloride SA (K-DUR,KLOR-CON) CR tablet 40 mEq, 40 mEq, Oral, Daily, Flako Pinedo MD, 40 mEq at 11/06/20 0902 PMH/PSH// reviewed, no change : Review of Systems: All systems were reviewed no change: Medications Reviewed. Chart Reviewed. Exam Findings: HEENT: Atraumatic/Pupils equal & reactive Neck: Supple, no rigidity ENT: No oral candidiasis Chest: Lungs clear bilaterally, no wheezing, or rales CVS: Normal S1 & S2+, Normal Rhythm Abdomen: Obese, normal symmetry, Soft/non-tender. Benign, BS+ Extremities: +Deformities, edema and deformity of the foot, with left foot dressed currently statuspost debridement and dressing soaked. Right foot status post transmet, and plantar ulceration noted. 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 Please see pictures. Justice Catheter: None IV Access: Yes I reviewed Medications. I reviewed Labs. Laboratory and Additional Data Reviewed: Laboratory 11/07/20 7:38 PM Microbiology 11/07/20 7:38 PM Radiology 11/07/20 7:38 PM MR Foot Left With And Without Contrast Final Result 1. Abnormal appearance of the midfoot particularly at the 2nd through 5th TMT joints and navicular-middle cuneiform articulations. Given the nearby dorsal skin wound, and degree of inflammation, these findings are concerning for multifocal septic arthropathy and osteomyelitis. Superimposed neuropathic arthropathy is not excluded. The talus and calcaneus appear spared. 2. Extensive cellulitis without obvious abscess. There is some nonenhancement along the midfoot concerning for tissue necrosis. 3. 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 4. No tendon tear or tenosynovitis is seen. MPH/ThisNextv Workstation ID: [id number] MR Foot Right With And Without Contrast Final Result 1. Prior forefoot resection. Cellulitis of the surgical stump is seen associated with small ulceration. 2. No abscess. 3. No MR signs of osteomyelitis. 4. Bwec-gm-tryryeke mid/hindfoot osteoarthritis. 5. Remote sprains of the ATFL and deep fibers of the deltoid ligament, as above. MPH/[employer] Workstation ID: [id number] XR Foot Left 3+ Views (Standard) Final Result No definite plain film evidence of osteomyelitis in the right or left foot Workstation ID: [id number] XR Foot Right 3+ Views (Standard) Final Result No definite plain film evidence of osteomyelitis in the right or left foot Workstation ID: [id number] XR Comparison Import Final Result CT Comparison Import Final Result XR Chest 1 View Final Result Shallow lungs with right basilar opacity, could be atelectasis or pneumonia Workstation ID: [id number] Medications 11/07/20 7:38 PM Lab Results Component Value Date WBC 12.03 (H) 11/07/2020 HGB 11.2 (L) 11/07/2020 HCT 35.6 (L) 11/07/2020 MCV 83.8 11/07/2020 PLT 282 11/07/2020 Lab Results Component Value Date GLUCOSE 281 (H) 11/06/2020 CALCIUM 7.7 (L) 11/06/2020 NA 132 (L) 11/06/2020 K 3.8 11/06/2020 CL 104 11/06/2020 BUN 36 (H) 11/06/2020 CREATININE 1.54 (H) 11/06/2020 Problem List Items Addressed This Visit None I discussed my management plans with Patient/and or Family member, and also discussed antibiotics therapy including side effects with Patient/and or Family member. Medical Decision Making: Moderate This note is created with the assistance of a speech-recognition program. While intending to generate a document that actually reflects the content of the visit, the document can still have some errors including those of syntax and sound a- like substitutions which may escape proofreading. In such instances, actual meaning can be extrapolated by contextual derivation. * Leanne Cherry DPM - 11/07/2020 2:44 PM EST Podiatry Inpatient Progress Note 11/07/2020 Leanne Cherry DPM [facility] Patient: More Kingsley Jr. Date of : 1965 (54 y.o.) Referring Provider: Refer to consult order in electronic medical record PCP: Cheng Staples CNP ASSESSMENT/PLAN: More Kingsley 54 y.o. male with history of left midfoot abscess with possible underlying osteomyelitis v/s charcot. Right plantar midfoot ulceration with history of right forefoot amputation. Diabetic neuropathy bilateral feet Plan: Patient was seen and evaluated Discussed all clinical findings MRI of the left foot was evaluated concerning for multifocal septic arthropathy and osteomyelitis vs. Charcot. The left midfoot abscess site with NuGauze packing was removed. Purulent drainage was noted within the wound bed requiring another bedside I&D. At bedside, left foot incision site was explored further. The abscess site tunneled medially and proximally. Approximately 15 cc of purulence was drained. The wound site is to be re-packed by nursing using betadine soaked plain Nu- gauze, dsd, kerlix, andace bandage. Discussed with patient that he will be re-evaluated tomorrow by Dr. Conte and possible application of wound vac. SUBJECTIVE: Patient was seen resting comfortably in bed. No new pedal complaints. No overnight events. OBJECTIVE: Physical Examination: Derm: A full thickness surgical incision is noted to the dorsal lateral aspect of the left foot with nonviable soft tissue. Wound bed is noted with purulent drainage. Wound tunnels medially and proximally. The midfoot joints can be palpated with irregular erosive surface. Neuro-Protective sensation profoundly diminished bilateral feet Vascular-DP and PT pulses are palpable bilateral feet, capillary fill time is less than 3 seconds on the left foot. Both feet are warm to touch Musculoskeletal-No pain on palpation to bilateral feet. Right forefoot Lisfranc amputation. Patientis unable to wiggle digits on left foot secondary to extensive left foot swelling. No calf pain. BP 122/70 Pulse 74 Temp 99.5 F (37.5 C) (Oral) Resp 14 Ht 5' 10 Wt 105 kg (231 lb 7.7 oz) SpO2 92% BMI 33.21 kg/m * Jean Farley MD - 11/07/2020 11:01 AM EST [facility] Medicine Inpatient H&P 11/07/2020 Jean Farley MD [facility] Patient: More Kingsley Jr. Date of : 1965 (54 y.o.) PCP: Cheng Staples, BOX PERSON Assessment More Kingsley is a 54 y.o. male is known for hypertension there is mellitus hyperlipidemia chronic kidney disease stage III with creatinine baseline is 1.3 and GFR 40 to 45% presumed diabetic nephropathy, is here due to swelling and pain in the left for this for the past 2 to 3 days, has also ulceron the right foot, reported feeling fatigue loss of appetite headaches, denies fevers or chills wasevaluated emergency department blood glucose elevated close to 400, elevated lactic acid and ketones, leukocytosis and acute kidney injury his creatinine is 1.8, tachycardia with frequent PVCs IMP -sepsis due to Left foot cellulitis and osteomyelitis -Acute kidney injury prerenal azotemia and infection related -Recurrent PVCs and often noticed bigeminy -Hypokalemia and hypophosphatemia -Lactic acidosis and mild ketosis PLAN Left foot abscess and osteomyelitis Sepsis Seen and examined Clinically better Plan of pain of left foot No fever Blood culture are negative Wound culture grew Moderate Growth Staphylococcus aureusAbnormal MRI of left foot 1. Abnormal appearance of the midfoot particularly at the 2nd through 5th TMT joints and navicular-middle cuneiform articulations. Given the nearby dorsal skin wound, and degree of inflammation, these findings are concerning for multifocal septic arthropathy and osteomyelitis. Superimposed neuropathic arthropathy is not excluded. The talus and calcaneus appear spared. 2. Extensive cellulitis without obvious abscess. There is some nonenhancement along the midfoot concerning for tissue necrosis. 3. 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 4. No tendon tear or tenosynovitis is seen. S/p I&D of left foot abscess Podiatry is following Continue with Zosyn and vancomycin Infectious diseases following Acute renal failure Improving Continue with IV fluid BMP daily Diabetes type 2: Uncontrolled Endocrinology is following Lantus 30 units twice daily Sliding scale Hypokalemia: Replaced Hyponatremia: Continue with IV fluids BMP in the morning DVT prophylaxis: DVT prophylaxis: Heparin subcu daily SUBJECTIVE: Chief Complaint: Left foot pain and swelling History of Presenting Illness: More Kingsley is a 54 y.o. male is known for hypertension there is mellitus hyperlipidemia chronic kidney disease stage III with creatinine baseline is 1.3 and GFR 40 to 45% presumed diabetic nephropathy, is here due to swelling and pain in the left for this for the past 2 to 3 days, has also ulceron the right foot, reported feeling fatigue loss of appetite headaches, denies fevers or chills wasevaluated emergency department blood glucose elevated close to 400, elevated lactic acid and ketones, leukocytosis and acute kidney injury his creatinine is 1.8, tachycardia with frequent PVCs Review of Systems: 10 systems reviewed and negative other than noted in HPI OBJECTIVE: Physical Examination: BP 127/83 (BP Location: Left arm, Patient Position: Lying) Pulse 82 Temp 98.2 F (36.8 C) (Oral) Resp 16 Ht 5' 10 Wt 105 kg (231 lb 7.7 oz) SpO2 92% BMI 33.21 kg/m General Appearance: Alert, well appearing, and in no acute distress. HEENT: Head - Normocephalic, atraumatic. Eyes - JADE bilaterally and EOMI. Ears - normal external appearance, hearing intact. Nose - normal, no erythema. Throat - mucous membranes moist, pharynx without lesions. Neck: Supple, trachea midline. Cardiovascular: S1, S2 normal. No murmurs, rubs, clicks or gallops appreciated. No pedal edema. Respiratory: Lungs clear to auscultation, no wheezes, rales or rhonchi heard. Abdomen: Soft, non-tender, normal bowel sounds, non-distended, no masses or organomegaly appreciated. Neurological: Grossly normal motor and sensory exam. No focal deficits. Musculoskeletal: No joint tenderness, deformity or swelling. Skin: Normal coloration and turgor. No rashes. Psych: Alert, oriented x 3. Normal mood and affect. Laboratory and Additional Data Reviewed: Results/Medications Reviewed 11/07/20 11:01 AM: Results from last 7 days Lab Units 11/06/20 0548 11/05/20 1936 SODIUM mmol/L 132* 130* POTASSIUM mmol/L 3.8 3.3* CHLORIDE mmol/L 104 97* BUN mg/dL 36* 42* CREATININE mg/dL 1.54* 1.82* GLUCOSE mg/dL 281* 309* CALCIUM mg/dL 7.7* 8.2* Results from last 7 days Lab Units 11/06/20 0548 11/05/20 1936 WBC K/mcL 15.27* 15.85* HGB g/dL 10.8* 11.9* HCT % 34.1* 37.7* PLT K/mcL 248 274 Results from last 7 days Lab Units 11/05/20 2211 11/05/20 1936 TROPONIN I ng/L <15 <15 Results from last 7 days Lab Units 11/05/20 1936 ALK PHOS U/L 95 BILIRUBIN TOTAL mg/dL 0.9 TOTAL PROTEIN g/dL 8.1* ALTR U/L 16 AST U/L 26 CULTURES: Reviewed 11:01 AM IMAGING: Reviewed 11:01 AM * Marvel Mcmillan MD - 11/07/2020 9:05 AM EST Patient ID: Patient Name: More Kingsley Jr. Admit Date: 11/05/2020 MR #: [id number] : 1965 Current location: [facility] [place] Physicians: Cheng Staples CNP (Family); Dr. Pinedo (Referring) Reason for consult: Type 2 diabetes out of control Assessment/Plan: Dx: Type 2 diabetes, under poor control Currently taking as outpatient: Metformin 1000 mg twice daily Humalog insulin: 1:3 units at breakfast; 1:3 units at lunch; 1:3 units at supper Lantus insulin: 38 units at breakfast; 36 units at bedtime Current Hemoglobin A1C= Lab Results Component Value Date HGBA1C 8.2 (H) 11/05/2020 NOTES: BG and labs reviewed since admission. Patient reports taking QID insulin as an outpatient. Admitted with bilateral foot wounds and cellulitis. 11/07 BG and labs reviewed. WBC 12.03, Hgb 11.2, Hct 35.6 Plt 282k. Blood Glucoses: 11/05: ___---___---___---309 11/06: 303---346---301---327 11/07 209---206---221---205 Plan: 1. Rx changes: Adjust insulin doses. Humalog insulin: 1:3 units at breakfast; 1:3 units at lunch; 1:3 units at supper Lantus insulin: 25 units at breakfast; 25 units at bedtime Hold metformin. 11/07 Increase Lantus to 35 units BID and continue Humalog 1:3 ins:CHO ratio. Left foot with osteomyelitis on MRI. 2. Education: Reviewed ABCs of diabetes management (respective goals in parentheses): A1C (7.0-8.0), blood pressure (<130/80), and cholesterol (LDL <100). Referral to Diabetes Education Referral to Nutrition therapy Subjective: Brief HPI: Mr. Kingsley is a 54 year old male with a past medical history of type 2 DM, HTN, hyperlipidemia who presented for evaluation of left lower extremity cellulitis swelling and pain along with lesions to right foot. Patient reports no chest pain. Occasional SOB. No blurred or double vision. Nofever or chills. Patient reports occasional nausea. Patient's labs reviewed with creat 1.82, K: 3.3, Glucose 309. Patient has had diabetes for 18 years. Diagnosed in 2001. Patient is currently taking Humalog insulin: 1:3 units at breakfast; 1:3 units at lunch; 1:3 units at supper Lantus insulin: 38 units at breakfast; 36 units at bedtime along with metformin 1000 mg BID as an out patient. Patient has taken Insulin for 12-14 years. Currently the patient is receiving no insulinat this time. Blood sugar levels since admission have been ranging from 303-309 mg/dL. Current monitoring regimen: home blood tests - 1-4 times daily Complications of diabetes include: Retinopathy: Positive: Proliferative diabetic retinopathy and Intraocular injection Nephropathy: Positive Peripheral Neuropathy: Positive Autonomic Neuropathy: Negative Allergies: No Known Allergies Home Medications: Outpatient Medications Marked as Taking for the 11/05/20 encounter (Hospital Encounter): insulin aspart U-100 (NovoLOG) 100 unit/mL injection, Inject under the skin 3 (three) times a day before meals Sliding scale, patient unsure of doses. . insulin glargine (LANTUS) 100 unit/mL injection, Inject 38 Units under the skin daily AM . insulin glargine (LANTUS) 100 unit/mL injection, Inject 32 Units under the skin nightly HS . metFORMIN (GLUCOPHAGE) 1000 MG tablet, Take 1,000 mg by mouth 2 (two) times a day with meals . Current Medications: insulin glargine 25 Units Subcutaneous BID lispro insulin 0-15 Units Subcutaneous at bedtime insulin lispro 0-30 Units Subcutaneous QAM AC insulin lispro 0-30 Units Subcutaneous Daily before lunch insulin lispro 0-30 Units Subcutaneous Before dinner piperacillin-tazobactam (ZOSYN) extended infusion 3.375 g Intravenous Q8H potassium chloride SA 40 mEq Oral Daily vancomycin 2,000 mg Intravenous Q18H vancomycin per pharmacy 1 each Intravenous as indicated by pharmacokinetics acetaminophen, sodium chloride (PF) AND sodium chloride (PF) AND gadoterate meglumine, ipratropium-albuteroL, ondansetron Review of Systems: Review of Systems Constitutional: Positive for fatigue. Negative for unexpected weight change. Eyes: Negative for visual disturbance. Respiratory: Positive for shortness of breath. Negative for cough. Cardiovascular: Negative for chest pain and leg swelling. Gastrointestinal: Positive for nausea. Negative for abdominal pain, constipation, diarrhea and vomiting. Endocrine: Negative for polydipsia, polyphagia and polyuria. Genitourinary: Negative for frequency and urgency. Musculoskeletal: Positive for arthralgias and joint swelling. Skin: Positive for rash (redness and swelling to LLE) and wound (multiple wounds to foot). Neurological: Negative for numbness and headaches. Psychiatric/Behavioral: Negative for agitation and sleep disturbance. The patient is not nervous/anxious. History: Past Medical History: Diagnosis Date Diabetes mellitus, type 2 (HCC) Diabetic nephropathy (HCC) Diabetic neuropathy (HCC) Diabetic retinopathy (HCC) Hyperlipidemia Hypertension Nephropathy Past Surgical History: Procedure Laterality Date AMPUTATION FOOT Left forefoot HAND SURGERY Left Family History Problem Relation Age of Onset Diabetes Mother Diabetes Father Heart disease Father Diabetes Brother Social History Tobacco Use Smoking status: Never Smoker Smokeless tobacco: Never Used Substance Use Topics Alcohol use: Yes Comment: rarely Drug use: Never The following portions of the patient's history were reviewed and updated as appropriate: allergies, current medications, past family history, past medical history, past social history, past surgicalhistory and problem list. Objective: BP 127/83 (BP Location: Left arm, Patient Position: Lying) Pulse 82 Temp 98.2 F (36.8 C) (Oral) Resp 16 Ht 5' 10 Wt 105 kg (231 lb 7.7 oz) SpO2 92% BMI 33.21 kg/m Wt Readings from Last 3 Encounters: 11/05/20 105 kg (231 lb 7.7 oz) 11/06/20 104.3 kg (230 lb) 11/05/20 105 kg (231 lb 7.7 oz) Physical Exam: Physical Exam Constitutional: He is oriented to person, place, and time. He appears well- developed and well-nourished. HENT: Head: Normocephalic and atraumatic. Eyes: Pupils are equal, round, and reactive to light. Conjunctivae are normal. Neck: Normal range of motion. Neck supple. No thyromegaly present. Cardiovascular: Normal rate, regular rhythm, normal heart sounds and intact distal pulses. No murmur heard. Pulmonary/Chest: Effort normal and breath sounds normal. Abdominal: Soft. Musculoskeletal: Normal range of motion. General: Deformity (left foot) and edema present. Neurological: He is alert and oriented to person, place, and time. Skin: Skin is warm and dry. There is erythema. Redness and swelling to left lower extremity Right foot status post forefoot amputation along with multiple lesions in various phases of healing. Ulcer with packing in place right foot. Psychiatric: He has a normal mood and affect. His behavior is normal. Judgment and thought content normal. Laboratory Review: BP 127/83 (BP Location: Left arm, Patient Position: Lying) Pulse 82 Temp 98.2 F (36.8 C) (Oral) Resp 16 Ht 5' 10 Wt 105 kg (231 lb 7.7 oz) SpO2 92% BMI 33.21 kg/m Lab Results Component Value Date HGBA1C 8.2 (H) 11/05/2020 Glucose (mg/dL) Date Value 11/06/2020 281 (H) Creatinine (mg/dL) Date Value 11/06/2020 1.54 (H) No results found for: CHOL, TRIG, HDL, LDLCALC, LDL Lab Results Component Value Date TSH 0.80 11/06/2020 No results found for: FREET4 Lab Results Component Value Date WBC 15.27 (H) 11/06/2020 HGB 10.8 (L) 11/06/2020 HCT 34.1 (L) 11/06/2020 MCV 82.6 11/06/2020 PLT 248 11/06/2020 This SmartLink has not been configured with any valid records. This SmartLink has not been configured with any valid records. Laboratory and Additional Data Reviewed: Laboratory 11/07/20 9:05 AM Medications 11/07/20 9:05 AM Transcriptions 11/07/20 9:05 AM Thank you for this consultation, we will continue to follow this patient with you. Marvel Mcmillan MD * Rafat Miller, [facility],PharmD - 11/07/2020 8:06 AM EST PHARMACOTHERAPY NOTE: Antimicrobial Therapy Initiation Assessment / Plan: More Kingsley Jr. is a 54 y.o. male initiated on antimicrobial therapy for cellulitis, possible foot abscess, suspicion for osteomyelitis. Patient initiated on vancomycin 11/05 Vancomycin trough goal is 15-20 mcg/mL. Will obtain level when at steady state or when clinically appropriate. Will monitor serum creatinine levels and urine output (if available) daily. Pharmacy will continue to follow, order levels, and make adjustments as needed. Please call pharmacy with questions. 11/05 - Vancomycin 1500 mg IV q 24hr. 11/07 - Due to improved renal function and notation from ID physician pertaining to indication, goal was increased to 15-20 and dose was adjusted to vancomycin 2000 mg IV q18hr. Trough prior to 5th total dose. 11/09 - Vt = Current antibiotic regimen includes: vancomycin 11/05 - piperacillin-tazobactam 3.375 gm q8h 11/05 - Objective: Ht Readings from Last 1 Encounters: 11/06/20 5' 10 (177.8 cm) Wt Readings from Last 1 Encounters: 11/05/20 105 kg (231 lb 7.7 oz) Frazer body weight: 73 kg (160 lb 15 oz) Adjusted ideal body weight: 85.8 kg (189 lb 2.5 oz) Labs include: WBC (K/mcL) Date Value 11/06/2020 15.27 (H) Creatinine (mg/dL) Date Value 11/06/2020 1.54 (H) Estimated Creatinine Clearance: 57.3 mL/min (A) (by C-G formula based on SCr of 1.54 mg/dL (H)). Patient Tmax (last 24 hours): 101.2 F Micro: 11/05 blood = [id number] 11/06 L foot wound, deep = few GPC in clusters 11/06 R foot wound, superficial = no organism seen Pharmacist: Rafat Miller RPh,PharmD Contact Number: [phone] * Jean Farley MD - 11/06/2020 9:18 AM EST [facility] Medicine Inpatient H&P 11/06/2020 Jean Farley MD [facility] Patient: More Kingsley Date of : 1965 (54 y.o.) PCP: Cheng Staples, BOX PERSON Assessment More Kingsley is a 54 y.o. male is known for hypertension there is mellitus hyperlipidemia chronic kidney disease stage III with creatinine baseline is 1.3 and GFR 40 to 45% presumed diabetic nephropathy, is here due to swelling and pain in the left for this for the past 2 to 3 days, has also ulceron the right foot, reported feeling fatigue loss of appetite headaches, denies fevers or chills wasevaluated emergency department blood glucose elevated close to 400, elevated lactic acid and ketones, leukocytosis and acute kidney injury his creatinine is 1.8, tachycardia with frequent PVCs IMP -Left foot cellulitis, right foot with deep-seated ulcer concern underlying deep tissue infection and osteomyelitis, with leukocytosis and elevated C-reactive protein -Acute kidney injury prerenal azotemia and infection related -Recurrent PVCs and often noticed bigeminy -Hypokalemia and hypophosphatemia -Lactic acidosis and mild ketosis PLAN Seen and examined Clinically stable Febrile with T-max 101.2 Leukocytosis with CBC 15.2 Blood culture still negative no growth Continue with Zosyn IV every 8 hours Continue vancomycin IV pharmacy to dose Continue with IV fluid LR at 100 cc/h Kidney function is better down to 1.54 BMP in the morning CBC with differential in the morning Podiatry was consulted ID is following Endocrinology was consulted Heparin subcu for DVT prophylaxis SUBJECTIVE: Chief Complaint: Left foot pain and swelling History of Presenting Illness: More Kingsley is a 54 y.o. male is known for hypertension there is mellitus hyperlipidemia chronic kidney disease stage III with creatinine baseline is 1.3 and GFR 40 to 45% presumed diabetic nephropathy, is here due to swelling and pain in the left for this for the past 2 to 3 days, has also ulceron the right foot, reported feeling fatigue loss of appetite headaches, denies fevers or chills wasevaluated emergency department blood glucose elevated close to 400, elevated lactic acid and ketones, leukocytosis and acute kidney injury his creatinine is 1.8, tachycardia with frequent PVCs Review of Systems: 10 systems reviewed and negative other than noted in HPI OBJECTIVE: Physical Examination: BP 112/75 Pulse (!) 110 Temp 98.4 F (36.9 C) (Oral) Resp 16 Ht 5' 10 Wt 105 kg (231 lb 7.7 oz) SpO2 91% BMI 33.21 kg/m General Appearance: Alert, well appearing, and in no acute distress. HEENT: Head - Normocephalic, atraumatic. Eyes - JADE bilaterally and EOMI. Ears - normal external appearance, hearing intact. Nose - normal, no erythema. Throat - mucous membranes moist, pharynx without lesions. Neck: Supple, trachea midline. Cardiovascular: S1, S2 normal. No murmurs, rubs, clicks or gallops appreciated. No pedal edema. Respiratory: Lungs clear to auscultation, no wheezes, rales or rhonchi heard. Abdomen: Soft, non-tender, normal bowel sounds, non-distended, no masses or organomegaly appreciated. Neurological: Grossly normal motor and sensory exam. No focal deficits. Musculoskeletal: No joint tenderness, deformity or swelling. Skin: Normal coloration and turgor. No rashes. Psych: Alert, oriented x 3. Normal mood and affect. Laboratory and Additional Data Reviewed: Results/Medications Reviewed 11/06/20 9:19 AM: Results from last 7 days Lab Units 11/06/20 0548 11/05/201935 SODIUM mmol/L 132* 130* POTASSIUM mmol/L 3.8 3.3* CHLORIDE mmol/L 104 97* BUN mg/dL 36* 42* CREATININE mg/dL 1.54* 1.82* GLUCOSE mg/dL 281* 309* CALCIUM mg/dL 7.7* 8.2* Results from last 7 days Lab Units 11/06/20 0548 11/05/20 1936 WBC K/mcL 15.27* 15.85* HGB g/dL 10.8* 11.9* HCT % 34.1* 37.7* PLT K/mcL 248 274 Results from last 7 days Lab Units 11/05/20 2211 11/05/20 1936 TROPONIN I ng/L <15 <15 Results from last 7 days Lab Units 11/05/20 1936 ALK PHOS U/L 95 BILIRUBIN TOTAL mg/dL 0.9 TOTAL PROTEIN g/dL 8.1* ALTR U/L 16 AST U/L 26 CULTURES: Reviewed 9:19 AM IMAGING: Reviewed 9:19 AM * Jose Read [facility],PharmD - 11/05/2020 8:47 PM EST PHARMACOTHERAPY NOTE: Antimicrobial Therapy Initiation Assessment / Plan: More Kingsley is a 54 y.o. male initiated on antimicrobial therapy for skin/soft tissue infection. Patient initiated on vancomycin 1500 mg q24h Vancomycin trough goal is 10-15 mcg/mL. Will obtain level when at steady state or when clinically appropriate. Will monitor serum creatinine levels and urine output (if available) daily. Pharmacy will continue to follow, order levels, and make adjustments as needed. Please call pharmacy with questions. Current antibiotic regimen includes: piperacillin-tazobactam 3.375 g q8h vancomycin 1500 mg q24h Objective: Ht Readings from Last 1 Encounters: 11/05/20 5' 10 (177.8 cm) Wt Readings from Last 1 Encounters: 11/05/20 105 kg (231 lb 7.7 oz) Frazer body weight: 73 kg (160 lb 15 oz) Adjusted ideal body weight: 85.8 kg (189 lb 2.5 oz) Labs include: WBC (K/mcL) Date Value 11/05/2020 15.85 (H) Creatinine (mg/dL) Date Value 11/05/2020 1.82 (H) Estimated Creatinine Clearance: 48.5 mL/min (A) (by C-G formula based on SCr of 1.82 mg/dL (H)). Patient Tmax (last 24 hours): 99 F . Micro: pending Pharmacist: Jose Read RPh,PharmRoger Contact Number: [phone] documented in this encounter* Phu Buck RN - 11/20/2020 8:44 AM EST 11/20/2020 Call from Frances in [facility] this am confirming that pt is out of service area for [facility] andPharmacy. This RN had notified CM team of same on 11/19. Patient lives in [place], [place] so CM sendingreferral to [place]. [facility] and IV Infusion: Pt lives outside of the [facility] area for both Home Health and Pharmacy. documented in this encounter* Monica Jalloh RN - 12/19/2020 2:30 PM EST Nurse wore gloves and mask while taking care of patient. Patient wearing mask at all times while staff in the room. * Marcella Bell MD - 12/19/2020 2:21 PM EST Patient Name: More Kingsley Jr. Admit Date: MR #: [id number] : 1965 Physicians: Cheng Staples CNP (Family); No ref. provider found (Referring) Assessment: Patient with 1. Left foot abscess, with MSSA 2. Osteomyelitis with MSSA 3. Uncontrolled diabetes. 4. Abdominal pain. 5. Constipation. Plan. Continue patient on current therapy. Continue patient on IV cefazolin. Patient had 6 weeks of total IV antibiotics, will extend to 2 more weeks. I reviewed labs, including cultures, with MSSA, and be strep. Dressing according to content production specialist recommendation Endocrinology evaluation for adequate blood sugar control We will continue to follow with you. Status post debridement. Reviewed bone cultures with MSSA. I reviewed labs. I reviewed CT scan of the abdomen and pelvis, with moderate large amount of retained stool in the proximal colon. Status post incision and drainage of the left ankle foot. Follow-up cultures, bone culture with no growth. Follow-up content production specialist. I reviewed CBC, and C-reactive protein with 10.9 kidneys BUN and creatinine 9 and 0.72 Follow-up in 3 weeks. Okay with surgical shoe. Subjective: Patient is being reevaluated again today, he was followed in [facility] in the month of October 2020, at that time he had presented with left foot swelling and redness and alsowith some draining pus. He was evaluated and found with abscess of the left foot, and osteomyelitis. Patient then had content production specialist debridement and drainage. Wound culture then had shown MSSA and also from the bone cultures. Patient was finally discharged on IV cefazolin, he has been on that for 6 weeks, currently presenting with reevaluation. Patient has been on VAC dressing, and still with wound, but left foot is slowly improving. No fever, no chills, no diarrhea. Exam: PACU Vitals 12/19/20 1409 BP: (!) 146/99 Pulse: (!) 101 Resp: 18 Temp: 97.8 F (36.6 C) SpO2: 98% Allergies: Patient has no known allergies. Current Outpatient Medications: ceFAZolin 2,000 mg IV (Outpatient Therapy), Infuse 2 (two) g (2,000 mg total) into a venous catheter every 8 (eight) hours End: 12/19/20, Disp: 180 vial, Rfl: 0 insulin glargine (LANTUS) 100 unit/mL injection, Inject 25 (twenty five) Units under the skin nightly ., Disp: 7.5 mL, Rfl: 0 insulin lispro (HumaLOG) 100 unit/mL injection, Inject 5 (five) Units under the skin 3 (three) times a day before meals ., Disp: 4.5 mL, Rfl: 0 insulin lispro (HumaLOG) 100 unit/mL injection, Sliding scale before meals: BG 150-200 = +1 unit Humalog, 201-250=+2 Units Humalog, 251-300=+3 Units Humalog, 301-350= +4 Humalog, >351 =+5 units Humalog ., Disp: 10 mL, Rfl: 0 metFORMIN (GLUCOPHAGE) 1000 MG tablet, Take 1,000 mg by mouth 2 (two) times a day with meals ., Disp: , Rfl: PMH/PSH/SH/FH reviewed, no change : Review of Systems: All systems were reviewed no change: Medications Reviewed. Chart Reviewed. Exam Findings: Neck: Supple, no rigidity. Chest: Lungs clear bilaterally, no wheezing, or rales CVS: Normal S1 & S2+, Normal Rhythm Abdomen: Normal symmetry, Soft/non-tender. Benign, BS+ Extremities: Left foot with Charcot foot deformity, erythema and edema noted, and tunnelling ulceration to the bone noted. Skin: Intact & No Rashes, or excoriations Musculoskeletal: No joint swelling, non tender AUTO WASH BUFFER: Awake, and Ox3 PICC line in place. Wound: I examined wounds, please see pictures reviewed. Patient also on wound VAC dressing. Justice Catheter: None IV Access: Yes, with PICC line. I reviewed Medications. I reviewed Labs. Laboratory and Additional Data Reviewed: Laboratory 12/19/20 2:21 PM Microbiology 12/19/20 2:21 PM Radiology 12/19/20 2:21 PM Medications 12/19/20 2:21 PM Lab Results Component Value Date WBC 6.26 11/21/2020 HGB 10.3 (L) 11/21/2020 HCT 34.1 (L) 11/21/2020 MCV 84.4 11/21/2020 PLT 494 (H) 11/21/2020 Lab Results Component Value Date GLUCOSE 156 (H) 11/21/2020 CALCIUM 8.9 11/21/2020 NA 136 11/21/2020 K 3.8 11/21/2020 CL 104 11/21/2020 BUN 15 11/21/2020 CREATININE 1.01 11/21/2020 Problem List Items Addressed This Visit None I discussed my management plans with Patient/and or Family member, and also discussed antibiotics therapy including side effects with Patient/and or Family member. Medical Decision Making: Moderate This note is created with the assistance of a speech-recognition program. While intending to generate a document that actually reflects the content of the visit, the document can still have some errors including those of syntax and sound a- like substitutions which may escape proofreading. In such instances, actual meaning can be extrapolated by contextual derivation. * Alessandra Valle LPN - 12/19/2020 2:19 PM EST Mask,protective eyewear, and gloves were worn while in the room with this patient.Patient wearing mask at all times while staff in the room. Removed 2 piece of white foam and one black foam . * Tsering Clemons PSA - 12/19/2020 2:00 PM EST Patient called today for COVID-19 screening regarding upcoming appointment in wound clinic. Have you been in close contact with anyone confirmed to have coronavirus/COVID- 19 in the past 14 days? No Have you traveled out of state or internationally in the past 14 days? No In the last 24 hours have you had any of the following symptoms? Fever over 100 F No Cough No Shortness of breath or difficulty breathing No Chills or repeated shaking with chills No Muscle pain, headache, or sore throat No Any loss of taste or smell No Diarrhea No Patient was reminded at this time wound clinic is not allowing visitors for social distancing purposes. Patient was informed of new procedure to gain access to wound clinic. documented in this encounter* Cheng White RN - 12/27/2020 12:49 PM EST Surgical mask and gloves, and eyewear worn while in exam room with patient. Patient wearing mask at all times while staff in the room. * Leanne Cherry DPM - 12/27/2020 11:39 AM EST Associated Order(s): Biopsy Subjective: Patient is a pleasant 55 year old who presents to clinic for left foot wound evaluation. Patient was seen as an inpatient for an abscess of the left foot and an acute on chronic charcot event, in addition to underlying/subacute osteomyelitis. Patient is currently being managed by Dr. Bell with IV a ntibiotics and negative pressure wound therapy. Denies any new pedal complaints at this time. Denies any fevers, chills, nausea, vomiting, chest pain, shortness of breath, or any other constitutionalsymptoms. Objective: DP and PT pulses nonpalpable secondary to edema. PHYTOPATHOLOGIST is brisk to distal digits. Gross sensation intact. Protective sensation absent Full thickness ulceration noted to the dorsal left foot with serous drainage noted. No surrounding erythema, edema, drainage, or any acute signs of infection. Wound probes down to bone. Some tunneling noted medially and proximally. Muscle strength 5/5. Compartments soft and compressible. No calf pain Wound 11/18/20 Surgical Wound Foot Left (Active) Wound Image 12/27/20 1053 Wound Length (cm) 2.9 cm 12/27/20 1053 Wound Width (cm) 1.9 cm 12/27/20 1053 Wound Depth (cm) 2.3 cm 12/27/20 1053 Assessment: Left foot ulceration Charcot, left foot Subacute osteomyelitis, left foot Plan: Patient was seen and evaluated Discussed all clinical findings Patient continues to have drainage and tunneling from the left foot dorsal wound At this time, it is medically necessary to obtain a bone biospy to rule out residual osteomyelitis.See procedure below Following bone biopsy, a swab culture was obtained of the deep soft tissues and sent to microbiology for culture and sensitivity. Then, the wound site was flushed copiously with sterile saline. The wound vac was re-applied using white granulofoam. Patient is to follow up in 2 weeks. Leanne Cherry DPM, MSBS Podiatric Physician and Surgeon Biopsy Timeout: Verbal Consent obtained?: Yes Consent given by:: Patient Procedure: Procedure Performed for: Bone Biopsy - Left foot Performed by: Physician Additional Procedure details:: A bone biopsy of the midfoot was obtained using a rongeur and sent to microbiology for culture and sensitivity Response to Treatment:: Procedure was tolerated well * Monica Jalloh RN - 12/27/2020 10:46 AM EST Nurse wore gloves and mask while taking care of patient. Patient wearing mask at all times while staff in the room. * Tsering Clemons PSA - 12/27/2020 10:45 AM EST Patient called today for COVID-19 screening regarding upcoming appointment in wound clinic. Have you been in close contact with anyone confirmed to have coronavirus/COVID- 19 in the past 14 days? No Have you traveled out of state or internationally in the past 14 days? No In the last 24 hours have you had any of the following symptoms? Fever over 100 F No Cough No Shortness of breath or difficulty breathing No Chills or repeated shaking with chills No Muscle pain, headache, or sore throat No Any loss of taste or smell No Diarrhea No Patient was reminded at this time wound clinic is not allowing visitors for social distancing purposes. Patient was informed of new procedure to gain access to wound clinic. documented in this encounter* Marcella Bell MD - 01/09/2021 3:01 PM EST Patient Name: More Kingsley Jr. Admit Date: MR #: [id number] : 1965 Physicians: Cheng Staples CNP (Family); No ref. provider found (Referring) Assessment: Patient with 1. Left foot abscess, with MSSA 2. Osteomyelitis with MSSA 3. Uncontrolled diabetes. 4. Abdominal pain. 5. Constipation. Plan. Continue patient on current therapy. Status post IV cefazolin. Had antibiotics for more than 8 weeks. I reviewed labs, including cultures, with MSSA, and be strep. Dressing according to content production specialist recommendation Endocrinology evaluation for adequate blood sugar control We will continue to follow with you. Status post debridement. Reviewed previous bone cultures with MSSA. I reviewed labs. I reviewed CT scan of the abdomen and pelvis, with moderate large amount of retained stool in the proximal colon. Status post incision and drainage of the left ankle foot. Follow-up content production specialist. Follow-up in 3 to 4 weeks. I reviewed bone biopsy on december with no growth I discussed with the content production specialist on management plan. Dr. Cherry, scheduling for reconstruction of the left foot. Okay to switch to p.o. Keflex for the next 2 weeks. Okay to DC PICC line. Follow-up x-ray of the left foot. Subjective: Patient is being reevaluated again today, he was followed in [facility] in the month of October 2020, at that time he had presented with left foot swelling and redness and alsowith some draining pus. He was evaluated and found with abscess of the left foot, and osteomyelitis. Patient then had content production specialist debridement and drainage. Wound culture then had shown MSSA and also from the bone cultures. Patient was finally discharged on IV cefazolin, he has been on that for 6 weeks, currently presenting with reevaluation. Patient has been on VAC dressing, and still with wound, but left foot is slowly improving. No fever, no chills, no diarrhea. Again on January 09, 2021. Patient was reevaluated again on December 27, 2020 patient had a bone biopsy of the left Charcot foot area by the content production specialist. He is not complaining of any new symptoms. No pain. No fever or chills. Patient is done with the IV cefazolin, and still with PICC line. Exam: PACU Vitals 01/09/21 1415 BP: 95/64 Pulse: (!) 106 Resp: 12 Temp: 97.2 F (36.2 C) SpO2: 97% Allergies: Patient has no known allergies. Current Outpatient Medications: ceFAZolin (ANCEF) 200 mg/ml injection, , Disp: , Rfl: insulin glargine (LANTUS) 100 unit/mL injection, Inject 25 (twenty five) Units under the skin nightly ., Disp: 7.5 mL, Rfl: 0 insulin lispro (HumaLOG) 100 unit/mL injection, Inject 5 (five) Units under the skin 3 (three) times a day before meals ., Disp: 4.5 mL, Rfl: 0 insulin lispro (HumaLOG) 100 unit/mL injection, Sliding scale before meals: BG 150-200 = +1 unit Humalog, 201-250=+2 Units Humalog, 251-300=+3 Units Humalog, 301-350= +4 Humalog, >351 =+5 units Humalog ., Disp: 10 mL, Rfl: 0 metFORMIN (GLUCOPHAGE) 1000 MG tablet, Take 1,000 mg by mouth 2 (two) times a day with meals ., Disp: , Rfl: PMH/PSH/SH/FH reviewed, no change : Review of Systems: All systems were reviewed no change: Medications Reviewed. Chart Reviewed. Exam Findings: Neck: Supple, no rigidity. Chest: Lungs clear bilaterally, no wheezing, or rales CVS: Normal S1 & S2+, Normal Rhythm Abdomen: Normal symmetry, Soft/non-tender. Benign, BS+ Extremities: Left foot with Charcot foot deformity, erythema and edema noted, and tunnelling ulceration to the bone noted. Serosanguineous drainage no foul- smelling wound noted no purulence. Skin: Intact & No Rashes, or excoriations Musculoskeletal: No joint swelling, non tender AUTO WASH BUFFER: Awake, and Ox3 PICC line in place. Wound: I examined wounds, please see pictures reviewed. ---> Patient also on wound VAC dressing. Justice Catheter: None IV Access: Yes, with PICC line. I reviewed Medications. I reviewed Labs. Laboratory and Additional Data Reviewed: Laboratory 01/09/21 3:01 PM Microbiology 01/09/21 3:01 PM Radiology 01/09/21 3:01 PM Medications 01/09/21 3:01 PM Lab Results Component Value Date WBC 6.26 11/21/2020 HGB 10.3 (L) 11/21/2020 HCT 34.1 (L) 11/21/2020 MCV 84.4 11/21/2020 PLT 494 (H) 11/21/2020 Lab Results Component Value Date GLUCOSE 156 (H) 11/21/2020 CALCIUM 8.9 11/21/2020 NA 136 11/21/2020 K 3.8 11/21/2020 CL 104 11/21/2020 BUN 15 11/21/2020 CREATININE 1.01 11/21/2020 Problem List Items Addressed This Visit None I discussed my management plans with Patient/and or Family member, and also discussed antibiotics therapy including side effects with Patient/and or Family member. Medical Decision Making: Moderate This note is created with the assistance of a speech-recognition program. While intending to generate a document that actually reflects the content of the visit, the document can still have some errors including those of syntax and sound a- like substitutions which may escape proofreading. In such instances, actual meaning can be extrapolated by contextual derivation. * Alessandra Valle LPN - 01/09/2021 2:27 PM EST Mask,protective eyewear, and gloves were worn while in the room with this patient.Patient wearing mask at all times while staff in the room. States Wednesday last IV antibiotic , I changed wound vac canister this morning was beep full ,. Bernie ESPARZA informed of BP. One piece white foam & black foam bridge removed . * Jewel El PSA - 01/09/2021 2:15 PM EST Patient called today for COVID-19 screening regarding upcoming appointment in wound clinic. Have you been in close contact with anyone confirmed to have coronavirus/COVID- 19 in the past 14 days? No Have you traveled out of state or internationally in the past 14 days? No In the last 24 hours have you had any of the following symptoms? Fever over 100 F No Cough No Shortness of breath or difficulty breathing No Chills or repeated shaking with chills No Muscle pain, headache, or sore throat No Any loss of taste or smell No Diarrhea No Patient was reminded at this time wound clinic is not allowing visitors for social distancing purposes. Patient was informed of new procedure to gain access to wound clinic. documented in this encounter* Leanne Cherry DPM - 01/12/2021 2:20 PM EST Subjective: Patient is a pleasant 55 year old who presents to clinic for left foot wound evaluation. Patient was seen as an inpatient for an abscess of the left foot and an acute on chronic charcot event, in addition to underlying/subacute osteomyelitis. Patient is currently being managed by Dr. Bell with IV a ntibiotics and negative pressure wound therapy. Denies any new pedal complaints at this time. Denies any fevers, chills, nausea, vomiting, chest pain, shortness of breath, or any other constitutionalsymptoms. Objective: DP and PT pulses nonpalpable secondary to edema. PHYTOPATHOLOGIST is brisk to distal digits. Gross sensation intact. Protective sensation absent Full thickness ulceration noted to the dorsal left foot with serous drainage noted. No surrounding erythema, edema, drainage, or any acute signs of infection. Wound probes down to bone. /runneling noted medially and proximally. Midfoot charcot with rockerbottom foot deformity. Unstable midfoot joints. Compartments soft and compressible. No calf pain Wound 11/18/20 Surgical Wound Foot Left (Active) Wound Image 01/09/21 1433 Wound Length (cm) 1.8 cm 01/09/21 1433 Wound Width (cm) 1.7 cm 01/09/21 1433 Wound Depth (cm) 1.5 cm 01/09/21 1433 Assessment: Left foot ulceration Charcot, left foot Subacute osteomyelitis, left foot Plan: Patient was seen and evaluated Discussed all clinical findings Patient continues to have drainage and tunneling from the left foot dorsal wound Bone biopsy was obtained at the last clinic visit showing no sign of residual osteomyelitis. I ordered simulated weightbearing radiographs of the left foot and ankle. I interpreted and discussed these radiographs with patient. Patient understands that he will need surgical reconstruction of his left foot in order to correct his Charcot deformity by converting his rocker-bottom foot into a plantigrade foot. I discussed with patient details for his surgical intervention requiring a staged procedure. Patient understands that the first stage would entail external fixation to the left lowerextremity and performing a midfoot wedged resection. Patient would like to proceed with surgical intervention however he has difficulty with transportation. Patient has been driving from [facility], which takes him 1.5 hours. Patient would like to follow with Dr. Stephenson who performed surgery on his right foot several years ago. He states that Dr. Stephenson's office is only 30 minutes from his home. I encouraged patient to follow-up with Dr. Stephenson. Patient understands that he is at high risk for infection and limb loss. I advised the patient to return back to our office in 2 weeks if he is unable to follow up with Dr. Stephenson in order to continue his medical care. At this time, patient is to continue with wound VAC therapy to the left foot. This is to be performed 3 times per week at 1 25 mmHg continuous suction. All questions were answered to patient's satisfaction. Patient understands to call our office with any questions or concerns regarding his care. Leanne Cherry DPM, SCBS Podiatric Physician and Surgeon * Monica Jalloh RN - 01/09/2021 3:40 PM EST Nurse wore gloves and mask while taking care of patient. Patient wearing mask at all times while staff in the room. documented in this encounter* Leanne Cherry DPM - 01/24/2021 11:11 PM EST * Barbara Trevizo RN - 01/24/2021 3:32 PM EST Surgical mask and gloves were worn while in this patient's room. Patient wearing mask at all times while staff in the room. * Monica Jalloh RN - 01/24/2021 1:52 PM EST Nurse wore gloves and mask while taking care of patient. Patient wearing mask at all times while staff in the room. * Evie Egan RN - 01/24/2021 1:45 PM EST Patient called today for COVID-19 screening regarding upcoming appointment in Wound Clinic Have you been in close contact with anyone confirmed to have coronavirus/COVID- 19 in the past 14 days? No Have you traveled out of state or internationally in the past 14 days? No In the last 24 hours have you had any of the following symptoms? Fever over 100 F No Cough No Shortness of breath or difficulty breathing No Chills or repeated shaking with chills No Muscle pain, headache, or sore throat No Any loss of taste or smell No Diarrhea No Patient was informed of new procedure to gain access Wound clinic. Patient was reminded at this time wound clinic is not allowing visitors for social distancing purposes. documented in this encounter* Leanne Cherry DPM - 01/24/2021 11:11 PM EST * Barbara Trevizo RN - 01/24/2021 3:32 PM EST Surgical mask and gloves were worn while in this patient's room. Patient wearing mask at all times while staff in the room. * Monica Jalloh RN - 01/24/2021 1:52 PM EST Nurse wore gloves and mask while taking care of patient. Patient wearing mask at all times while staff in the room. * Evie Egan RN - 01/24/2021 1:45 PM EST Patient called today for COVID-19 screening regarding upcoming appointment in Wound Clinic Have you been in close contact with anyone confirmed to have coronavirus/COVID- 19 in the past 14 days? No Have you traveled out of state or internationally in the past 14 days? No In the last 24 hours have you had any of the following symptoms? Fever over 100 F No Cough No Shortness of breath or difficulty breathing No Chills or repeated shaking with chills No Muscle pain, headache, or sore throat No Any loss of taste or smell No Diarrhea No Patient was informed of new procedure to gain access Wound clinic. Patient was reminded at this time wound clinic is not allowing visitors for social distancing purposes. documented in this encounter* Mady Russell CNP - 01/26/2021 6:21 PM EST Patient Name: More Kingsley Jr. Admit Date: MR #: [id number] : 1965 Physicians: Cheng Staples CNP (Family); Leanne Cherry DPM (Referring) Assessment: 1. Left foot abscess, with MSSA 2. Osteomyelitis with MSSA 3. Uncontrolled diabetes. 4. Abdominal pain. 5. Constipation. 6. Charcot's deformity of L foot Plan: Complete PO keflex (prescription was until 01/23) Status post IV cefazolin. Had IV antibiotics for more than 8 weeks. Wound culture with MSSA, and beta hemolytic strep. Most recent labs reveiwed: CRP 11.7, no leukocytosis, BMP unremarkable (glucose 208) Bone culture with MSSA also. Acute osteomyelitis on tissue exam 11/18/20 Dressing according to content production specialist recommendation - currently with VAC dressing Status post debridement, I&D Follow up bone biopsy and wound culture 12/27/20 with no growth Continue working on blood sugar control (last A1c 8.2) [employer]irdox F[employer] Dr. Cherry planning reconstruction of the left foot. L foot xray 01/24: Severe destructive changes at the midfoot and about the 1st MTP joint are similar to the prior exam. Chronic periosteal reaction along multiple metatarsals. No displaced fracture identified. Soft tissue lucency along the dorsal midfoot on lateral view is enlarged and may represent gas and/or abscess. There is marked dorsal foot soft tissue edema. There is severe Charcot arthropathy. Superimposed osteomyelitis is not excluded. Subjective: Patient is seen in the wound clinic today, also coming to see content production specialist. There is someincreased swelling to the base of the L foot. Tunneling has decreased significantly. Patient stateshe noted significant amount of bleeding from the wound a few days ago, despite VAC dressing being intact at 150 mmHg. States he vomited yesterday but attributes it to coughing forcefully and possiblytaking ATB on an empty stomach. He should be done with keflex pills but states he is about halfwaythrough them . Denies chills but states he does feel sweaty at times. Exam: There were no vitals filed for this visit. Allergies: Patient has no known allergies. Current Outpatient Medications: ceFAZolin (ANCEF) 200 mg/ml injection, , Disp: , Rfl: insulin glargine (LANTUS) 100 unit/mL injection, Inject 25 (twenty five) Units under the skin nightly ., Disp: 7.5 mL, Rfl: 0 insulin lispro (HumaLOG) 100 unit/mL injection, Inject 5 (five) Units under the skin 3 (three) times a day before meals ., Disp: 4.5 mL, Rfl: 0 insulin lispro (HumaLOG) 100 unit/mL injection, Sliding scale before meals: BG 150-200 = +1 unit Humalog, 201-250=+2 Units Humalog, 251-300=+3 Units Humalog, 301-350= +4 Humalog, >351 =+5 units Humalog ., Disp: 10 mL, Rfl: 0 metFORMIN (GLUCOPHAGE) 1000 MG tablet, Take 1,000 mg by mouth 2 (two) times a day with meals ., Disp: , Rfl: PMH/PSH/SH/FH reviewed, no change : Review of Systems: All systems were reviewed no change: Medications Reviewed. Chart Reviewed. Exam Findings: Neck: Supple, no rigidity. Chest: Lungs clear bilaterally, no wheezing, or rales CVS: Normal S1 & S2+, Normal Rhythm Abdomen: Normal symmetry, Soft/non-tender. Benign, BS+ Extremities: Left foot with Charcot foot deformity, erythema and edema noted, and tunnelling ulceration to the bone noted. Serosanguineous drainage, non foul- smelling with no purulence. Skin: Intact & No Rashes, or excoriations Musculoskeletal: No joint swelling, non tender AUTO WASH BUFFER: Awake, and Ox3 Wound: 3/5 . ---> Patient also on wound VAC dressing. Justice Catheter: None IV Access: No I reviewed Medications. I reviewed Labs. Laboratory and Additional Data Reviewed: Laboratory 01/26/21 6:22 PM Microbiology 01/26/21 6:22 PM Radiology 01/26/21 6:22 PM Medications 01/26/21 6:22 PM Lab Results Component Value Date WBC 6.26 11/21/2020 HGB 10.3 (L) 11/21/2020 HCT 34.1 (L) 11/21/2020 MCV 84.4 11/21/2020 PLT 494 (H) 11/21/2020 Lab Results Component Value Date GLUCOSE 156 (H) 11/21/2020 CALCIUM 8.9 11/21/2020 NA 136 11/21/2020 K 3.8 11/21/2020 CL 104 11/21/2020 BUN 15 11/21/2020 CREATININE 1.01 11/21/2020 Problem List Items Addressed This Visit None I discussed my management plans with Patient/and or Family member, and also discussed antibiotics therapy including side effects with Patient/and or Family member. Medical Decision Making: Moderate This note is created with the assistance of a speech-recognition program. While intending to generate a document that actually reflects the content of the visit, the document can still have some errors including those of syntax and sound a- like substitutions which may escape proofreading. In such instances, actual meaning can be extrapolated by contextual derivation. documented in this encounter* Marcella Bell MD - 02/06/2021 2:26 PM EDT Patient Name: More Kingsley Jr. Admit Date: MR #: [id number] : 1965 Physicians: Cheng Staples CNP (Family); No ref. provider found (Referring) Assessment: Patient with 1. Left foot abscess, with MSSA 2. Osteomyelitis with MSSA 3. Uncontrolled diabetes. 4. Abdominal pain. 5. Constipation. Plan. Continue patient on current therapy. Status post IV cefazolin. Had antibiotics for more than 8 weeks. I reviewed labs, including cultures, with MSSA, and be strep. Endocrinology evaluation for adequate blood sugar control We will continue to follow with you. Status post debridement. Reviewed previous bone cultures with MSSA. I reviewed labs. I reviewed CT scan of the abdomen and pelvis, with moderate large amount of retained stool in the proximal colon. Status post incision and drainage of the left ankle foot. Follow-up content production specialist. Follow-up in 3 to 4 weeks. I reviewed bone biopsy on december with no growth Status post p.o. Keflex for the next 2 weeks. Status post DC PICC line I reviewed x-ray of the foot with severe destructive changes noted on the midfoot about the first metatarsophalangeal joint. Chronic periosteal reactions superimposed, osteomyelitis not excluded and severe Charcot arthropathy was noted. Patient scheduled to see the content production specialist Dr. Waller on second opinion, suggest been recommended for constructive foot surgery.. Subjective: Patient is being reevaluated again today, he was followed in [facility] in the month of October 2020, at that time he had presented with left foot swelling and redness and alsowith some draining pus. He was evaluated and found with abscess of the left foot, and osteomyelitis. Patient then had content production specialist debridement and drainage. Wound culture then had shown MSSA and also from the bone cultures. Patient was finally discharged on IV cefazolin, he has been on that for 6 weeks, currently presenting with reevaluation. Patient has been on VAC dressing, and still with wound, but left foot is slowly improving. No fever, no chills, no diarrhea. Again on January 09, 2021. Patient was reevaluated again on December 27, 2020 patient had a bone biopsy of the left Charcot foot area by the content production specialist. He is not complaining of any new symptoms. No pain. No fever or chills. Patient is done with the IV cefazolin, and still with PICC line. Again on February 06, 2021. Patient was reevaluated again, left foot still stable draining ulceration, still on VAC dressing. No fever or chills. No pain. Swelling stable. Patient states that he is done with his p.o. antibiotics. Exam: PACU Vitals 02/06/21 1344 BP: 102/60 Pulse: (!) 129 Resp: 16 Temp: 97.9 F (36.6 C) SpO2: 96% Allergies: Patient has no known allergies. Current Outpatient Medications: atorvastatin (LIPITOR) 40 MG tablet, Take 1 tablet by mouth daily ., Disp: , Rfl: insulin glargine (LANTUS) 100 unit/mL injection, Inject 25 (twenty five) Units under the skin nightly ., Disp: 7.5 mL, Rfl: 0 insulin lispro (HumaLOG) 100 unit/mL injection, Inject 5 (five) Units under the skin 3 (three) times a day before meals ., Disp: 4.5 mL, Rfl: 0 insulin lispro (HumaLOG) 100 unit/mL injection, Sliding scale before meals: BG 150-200 = +1 unit Humalog, 201-250=+2 Units Humalog, 251-300=+3 Units Humalog, 301-350= +4 Humalog, >351 =+5 units Humalog . (Patient not taking: Reported on 02/06/2021 .), Disp: 10 mL, Rfl: 0 metFORMIN (GLUCOPHAGE) 1000 MG tablet, Take 1,000 mg by mouth 2 (two) times a day with meals ., Disp: , Rfl: PMH/PSH/SH/FH reviewed, no change : Review of Systems: All systems were reviewed no change: Medications Reviewed. Chart Reviewed. Exam Findings: Neck: Supple, no rigidity. Chest: Lungs clear bilaterally, no wheezing, or rales CVS: Normal S1 & S2+, Normal Rhythm Abdomen: Normal symmetry, Soft/non-tender. Benign, BS+ Extremities: Left foot with Charcot foot deformity, erythema and edema noted stable from before, and tunnelling ulceration to the bone noted. Serosanguineous drainage no foul-smelling wound noted no purulence. Skin: Intact & No Rashes, or excoriations Musculoskeletal: No joint swelling, non tender AUTO WASH BUFFER: Awake, and Ox3 Off PICC line Wound: I examined wounds, please see pictures reviewed. ---> Patient also on wound VAC dressing. Justice Catheter: None IV Access: Yes, with PICC line. I reviewed Medications. I reviewed Labs. Laboratory and Additional Data Reviewed: Laboratory 02/06/21 2:26 PM Microbiology 02/06/21 2:26 PM Radiology 02/06/21 2:26 PM Medications 02/06/21 2:26 PM Lab Results Component Value Date WBC 6.26 11/21/2020 HGB 10.3 (L) 11/21/2020 HCT 34.1 (L) 11/21/2020 MCV 84.4 11/21/2020 PLT 494 (H) 11/21/2020 Lab Results Component Value Date GLUCOSE 156 (H) 11/21/2020 CALCIUM 8.9 11/21/2020 NA 136 11/21/2020 K 3.8 11/21/2020 CL 104 11/21/2020 BUN 15 11/21/2020 CREATININE 1.01 11/21/2020 Problem List Items Addressed This Visit None I discussed my management plans with Patient/and or Family member, and also discussed antibiotics therapy including side effects with Patient/and or Family member. Medical Decision Making: Moderate This note is created with the assistance of a speech-recognition program. While intending to generate a document that actually reflects the content of the visit, the document can still have some errors including those of syntax and sound a- like substitutions which may escape proofreading. In such instances, actual meaning can be extrapolated by contextual derivation. * Monica Jalloh RN - 02/06/2021 1:51 PM EDT Nurse wore gloves and mask while taking care of patient. Patient wearing mask at all times while staff in the room. * Tsering Clemons PSA - 02/06/2021 1:45 PM EDT Patient called today for COVID-19 screening regarding upcoming appointment in wound clinic. Have you been in close contact with anyone confirmed to have coronavirus/COVID- 19 in the past 14 days? No Have you traveled out of state or internationally in the past 14 days? No In the last 24 hours have you had any of the following symptoms? Fever over 100 F No Cough No Shortness of breath or difficulty breathing No Chills or repeated shaking with chills No Muscle pain, headache, or sore throat No Any loss of taste or smell No Diarrhea No Patient was reminded at this time wound clinic is not allowing visitors for social distancing purposes. Patient was informed of new procedure to gain access to wound clinic. 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, with long- term current use of insulin, macular edema presence unspecified, unspecified proliferative retinopathy type (HCC) Diagnosis Subacute osteomyelitis of left foot (HCC)- Primary Diagnosis Subacute osteomyelitis of left foot (HCC)- Primary Charcot's joint of ankle, unspecified laterality Diagnosis Charcot's joint of ankle, unspecified laterality- Primary Diagnosis Foot abscess, left- Primary Cellulitis and abscess of foot, except toes Charcot foot due to diabetes mellitus (HCC) MSSA (methicillin susceptible Staphylococcus aureus) infection Methicillin susceptible Staphylococcus aureus in conditions classified elsewhere and of unspecified site Diagnosis Foot abscess, left- Primary Cellulitis and abscess of foot, except toes Instructions * Patient Instructions* Monica Jalloh RN - 01/09/2021 3:37 PM EST Continue 3 times per week dressing changes left foot with white foam then black foam 150mm.Hg. Pt is Making appointment with Dr. Stephenson. Pt to return in [address] Cherry if cannot see Dr. Stephenson before then. documented in this encounter* Patient Instructions* Barbara Trevizo RN - 01/24/2021 2:53 PM EST RE-apply wound vac at 150mmhg continuous suction. documented in this encounter* Patient Instructions* Barbara Trevizo RN - 01/24/2021 2:53 PM EST RE-apply wound vac at 150mmhg continuous suction. documented in this encounter* Patient Instructions* Monica Jalloh RN - 02/06/2021 2:51 PM EDT Continue on VAC dressing of the left lower extremity tunneling ulceration. documented in this encounter Chief Complaint and Reason for Visit Chief Complaint 6 week follow up NAUSEA/VOMITING NAUSEA/VOMITING Reason for Visit Nausea and vomiting Chief Complaint FOLLOW UP EGD R11.2 Reason for Visit Nausea and vomiting Chief Complaint FOLLOW UP EGD R11.2 R11.2 Reason for Visit Nausea and vomiting Additional Source Comments (unrecognized sect ion and content) No Status Records FoundNo Status Records FoundNo Status Records FoundNo Status Records FoundNo Status Records FoundNo Status Records FoundNo Status Records FoundNo Status Records FoundNo Status Records FoundNo Status Records FoundNo Status Records FoundNo Status Records Found INFORMATION SOURCE (unrecogn ized section and content) DATE CREATED AUTHOR 01/10/2019 [facility] DATE CREATED AUTHOR AUTHOR'S ORGANIZ ATION 11/21/2020 [facility] DATE CREATED AUTHOR AUTHOR'S ORGANIZ ATION 02/07/2021 [facility] DATE CREATED AUTHOR AUTHOR'S ORGANIZ ATION 02/11/2021 [facility] DATE CREATED AUTHOR AUTHOR'S ORGANIZ ATION 04/04/2021 [facility] DATE CREATED AUTHOR AUTHOR'S ORGANIZ ATION 03/22/2023 [facility] DATE CREATED AUTHOR AUTHOR'S ORGANIZ ATION 03/13/2024 [facility] DATE CREATED AUTHOR AUTHOR'S ORGANIZ ATION 06/14/2024 [facility] DATE CREATED AUTHOR AUTHOR'S ORGANIZ ATION 04/22/2025 [facility] DATE CREATED AUTHOR AUTHOR'S ORGANIZ ATION 05/05/2025 [facility] DATE CREATED AUTHOR AUTHOR'S ORGANIZ ATION 05/06/2025 [facility] DATE CREATED AUTHOR AUTHOR'S ORGANIZ ATION 05/13/2025 [facility] Reason for Visit (unrecogniz ed section and content) Reason Comments Wound Check Specialty Diagnoses / Procedures Referred By Contac t Referred To Contact Wound Care Diagnoses Visit for wound check Lakshmi Figueroa, GRANT-BOX PERSON [address] [place] [address] Phone: tel: fax: [facility] [address] [place] [address] Phone: tel: fax: Referral ID Status Reason Start Date Expiration Date Visits Requested Visits Authorized [id number] Pending Review Specialty Services Required 03/04/2025 03/04/2026 1 1 Status Reason Specialty Diagnoses / Procedures Referre d By Contact Referred To Contact Diagnoses Secondary DM with DKA (HCC) Left foot cellulitis; DKA Reason Comments Ct Scan Tech - Other Dr Yoon's offi ce/request for office note Reason Comments Care Coordination Gastroparesis clinic : chart review; new patient call Reason Comments Wound Check Specialty Diagnoses / Procedures Referred By Contac t Referred To Contact Wound Care Diagnoses Visit for wound check Lakshmi Figueroa APRN-BOX PERSON [address] [place] [address] Phone: tel: fax: [facility] [address] [place] [address] Phone: tel: fax: Referral ID Status Reason Start Date Expiration Date Visits Requested Visits Authorized [id number] Pending Review Specialty Services Required 03/04/2025 03/04/2026 1 1 Reason Comments Care Coordination Appeal for GPOEM den ial Reason Comments Establish Care Specialty Diagnoses / Procedures Referred By Contac t Referred To Contact Internal Medicine Diagnoses Visit for wound check Hyperglycemia Lakshmi Figueroa GRANT[employer]BOX PERSON [address] [place] [address] Phone: tel: fax: Vahe Solares MD [address] [place] [address] Phone: tel: fax: Referral ID Status Reason Start Date Expiration Date Visits Requested Visits Authorized [id number] Pending Review Specialty Services Required 03/04/2025 03/04/2026 1 1 Reason Comments Wound Check Specialty Diagnoses / Procedures Referred By Contac t Referred To Contact Wound Care Diagnoses Visit for wound check Lakshmi FigueroaDEBRABOX PERSON [address] [place], [place] [id number] Phone: tel: fax: [facility] [address] [place] [address] Phone: tel: fax: Referral ID Status Reason Start Date Expiration Date Visits Requested Visits Authorized [id number] Pending Review Specialty Services Required 03/04/2025 03/04/2026 1 1 Reason Comments Diabetes Follow-up Back pain Reason Comments Med Change Request Leanne Cherry DPM - 11/18/2020 12:30 PM Braeden Henderson DPM - 11/17/2020 9:39 AM Flako Diaz MD - 11/05/2020 8:29 PM EST H&P Notes (unrecognized sect ion and content) INTERVAL HISTORY AND PHYSICAL Patient Name: More Kingsley Jr. Admit Date: MR #: [id number] : 1965 The H&P has been reviewed and the patient has been examined. I concur with the findings of the H&P. There are no significant changes. It is appropriate to proceed with the planned procedure. Leanne Cherry DPM 11/18/2020 12:30 PM Progress Inpatient Follow-up 11/17/2020 Braeden Conte, ELIE [facility] Patient: More Kingsley Jr. Date of : 1965 (55 y.o.) PCP: Cheng Staples CNP ASSESSMENT/PLAN: More Michael 55 y.o. male with history of status post I&D of left foot abscess. New medial left ankle abscess. Plan: I remove the wound VAC today because the white cell count was trending upward and patient was feeling increased pain on the medial ankle. When I remove the VAC there was copious amounts of pus coming from the dorsal foot wound seem to be originating from the medial ankle. Due to the bogginess of the medial ankle I feel that a OR debridement opening it up would be best flushed out more infection. Patient be n.p.o. as of midnight tonight we will stop the heparin patient up for surgery tomorrow. No new Assessment & Plan notes have been filed under this hospital service since the last note was generated. Service: Podiatry SUBJECTIVE: History Since Last Visit: Patient is a 55-year-old male seen at the bedside who is had a surgical I&D of the left foot by Dr. Cherry last week unfortunately he has been developing creasing pain along the medial side of the ankle with a boggy area concerning for the infection spreading. Patient is in need of another OR surgical debridement. Review of Systems: OBJECTIVE: Physical Examination: Integument-there is increased erythema and edema along the medial side of the left ankle. There appears to a underlying boggy abscess. When I removed the VAC from the dorsal left foot wound there was purulent discharge coming from it. Neuro-diminished left foot Vascular - Dp and PT pulses are palpable in the left foot BP (!) 154/92 Pulse 97 Temp 98.4 F (36.9 C) (Oral) Resp 16 Ht 5' 10 Wt 105 kg (231 lb 7.7 oz) SpO2 94% BMI 33.21 kg/m Laboratory and Additional Data Reviewed: Reviewed:[id number]} [facility] Medicine Inpatient H&P 11/05/2020 Flako Pinedo MD [facility] Patient: More Kingsley Date of : 1965 (54 y.o.) PCP: Cheng Staples, BOX PERSON Assessment More Kingsley is a 54 y.o. male is known for hypertension there is mellitus hyperlipidemia chronic kidney disease stage III with creatinine baseline is 1.3 and GFR 40 to 45% presumed diabetic nephropathy, is here due to swelling and pain in the left for this for the past 2 to 3 days, has also ulcer on the right foot, reported feeling fatigue loss of appetite headaches, denies fevers or chills was evaluated emergency department blood glucose elevated close to 400, elevated lactic acid and ketones, leukocytosis and acute kidney injury his creatinine is 1.8, tachycardia with frequent PVCs -Left foot cellulitis, right foot with deep-seated ulcer concern underlying deep tissue infection and osteomyelitis, with leukocytosis and elevated C-reactive protein -Acute kidney injury prerenal azotemia and infection related -Recurrent PVCs and often noticed bigeminy -Hypokalemia and hypophosphatemia -Lactic acidosis and mild ketosis We will start broad-spectrum antibiotics cultured the blood, do MRI of the feet and consult podiatry and infectious disease, insulin sliding scale and consult endocrinology, place the patient telemetry, given potassium and phosphate replacement, magnesium within acceptable range. IV hydration and follow the trend kidney function, sent for urinalysis and protein creatinine ratio check complements SUBJECTIVE: Chief Complaint: Left foot pain and swelling History of Presenting Illness: More Kingsley is a 54 y.o. male is known for hypertension there is mellitus hyperlipidemia chronic kidney disease stage III with creatinine baseline is 1.3 and GFR 40 to 45% presumed diabetic nephropathy, is here due to swelling and pain in the left for this for the past 2 to 3 days, has also ulcer on the right foot, reported feeling fatigue loss of appetite headaches, denies fevers or chills was evaluated emergency department blood glucose elevated close to 400, elevated lactic acid and ketones, leukocytosis and acute kidney injury his creatinine is 1.8, tachycardia with frequent PVCs Review of Systems: 10 systems reviewed and negative other than noted in HPI History: No past medical history on file. No past surgical history on file. No family history on file. Social History Tobacco Use Smoking Status Not on file Social History Substance and Sexual Activity Alcohol Use Not on file Family and Social History reviewed and non-pertinent to this visit Allergies: Patient has no allergy information on record. Home Medications: No current outpatient medications on file as of 11/05/2020. OBJECTIVE: Physical Examination: BP 127/67 (BP Location: Left arm, Patient Position: Lying) Pulse (!) 121 Temp 99 F (37.2 C) Resp (!) 20 SpO2 96% General Appearance: Alert, well appearing, and in no acute distress. HEENT: Head - Normocephalic, atraumatic. Eyes - JADE bilaterally and EOMI. Ears - normal external appearance, hearing intact. Nose - normal, no erythema. Throat - mucous membranes moist, pharynx without lesions. Neck: Supple, trachea midline. Cardiovascular: S1, S2 normal. No murmurs, rubs, clicks or gallops appreciated. No pedal edema. Respiratory: Lungs clear to auscultation, no wheezes, rales or rhonchi heard. Abdomen: Soft, non-tender, normal bowel sounds, non-distended, no masses or organomegaly appreciated. Neurological: Grossly normal motor and sensory exam. No focal deficits. Musculoskeletal: No joint tenderness, deformity or swelling. Skin: Normal coloration and turgor. No rashes. Psych: Alert, oriented x 3. Normal mood and affect. Laboratory and Additional Data Reviewed: Results/Medications Reviewed 11/05/20 8:29 PM: Results from last 7 days Lab Units 11/05/201935 SODIUM mmol/L 130* POTASSIUM mmol/L 3.3* CHLORIDE mmol/L 97* BUN mg/dL 42* CREATININE mg/dL 1.82* GLUCOSE mg/dL 309* CALCIUM mg/dL 8.2* Results from last 7 days Lab Units 11/05/201935 WBC K/mcL 15.85* HGB g/dL 11.9* HCT % 37.7* PLT K/mcL 274 Results from last 7 days Lab Units 11/05/201935 TROPONIN I ng/L <15 Results from last 7 days Lab Units 11/05/201935 ALK PHOS U/L 95 BILIRUBIN TOTAL mg/dL 0.9 TOTAL PROTEIN g/dL 8.1* ALTR U/L 16 AST U/L 26 CULTURES: Reviewed 8:29 PM IMAGING: Reviewed 8:29 PM documented in this encounter Monica Jalloh RN - 11/21/2020 1:05 PM Monica Stevenson RN - 11/21/2020 7:48 AM Rossana Garcia RN - 11/19/2020 2:[address] - 11/16/2020 10:57 AM EST Consult Notes (unrecognized section and content) Elect Equip Maint Eng went with Dr. Kumar, content production specialist, to patient's room . Dr. Kumar removed remainder of black foam from tunnel at 11 oclock. Elect Equip Maint Eng requested and received order change to white foam over bone and in tunnel areas, then black foam and negative pressure increased to 150mm/hg. Wound dressed per orders with 3 pieces total white foam, two pieces black foam to top. Negative pressure maintained and patient tolerated well. Patient dressing was attached to home vac at this time. Paperwork signed for vac by patient. Elect Equip Maint Eng educated patient on charging, what to bring to future wound care appointments for dressing changes and all questions answered. Elect Equip Maint Eng in to see patient for wound vac dressing change. Elect Equip Maint Eng removed intact vac dressing as described to senior underwriter by Dr. Cherry. Elect Equip Maint Eng removed one piece black foam from top of dressing. Elect Equip Maint Eng removed one piece black foam packed from 9 oclock area over to undermining in 2-4 oclock area. Elect Equip Maint Eng removed one piece black foam from 7 oclock area. There remains one piece black foam in 11 oclock area (toward medial ankle) that is adhered to tunneling and exposed bone and could not be removed intact. Elect Equip Maint Eng placed ns moist gauze dressing temporarily until discusses with podiatry. IV team consulted for PICC placement. Chart and history reviewed. PICC insertion explained to patient , agreed to procedure. Single lumen PICC inserted following [place] Protocol into cephalic vein. PICC trimmed at 41cm. External length at 3cm. Patient tolerated well. PICC okay to use as tip is confirmed in lower SVC per ECG technology- maximum P wave and absence of negative deflection. Invasive line Insertion Check list followed. Flushes easily with good blood return. RN notified OK to use. Associated Order(s): IP CONSULT TO DIETITIAN Nutrition Education: Gastroparesis MNT, Diabetes MNT (myplate) Pt/family education: Learner: patient Educated on: Gastroparesis, diabetes MNT, ONS to utilize at home Readiness: acceptance Method: explanation and handout Response: verbalizes understanding The home vac has been approved thru [facility] when the time comes for discharge home from hospital.LPapst RN woundcare Patient was seen today for a wound vac change to left anterior foot. The wound bed is pink with undermining present from 8-4. 1 piece of black foam was inserted into the undermining area. Some tendon is exposed. The dressing was bridged to anterior ankle. A total of 2 pieces of foam was used. Suction is set at 125mmhg continuous suction. We will return on Mon per protocol to change the vac dressing. I applied 4x4's and a kerlix dressing over the vac.Patient tolerated the procedure well. Occupational Therapy OCCUPATIONAL THERAPY EVALUATION NOTE Skilled Therapy Needs After Discharge Are Skilled Therapy Services Needed After Discharge: No DME Recommendation: Tub transfer bench(Toilet Riser w/Rails Attached) DME Rationale: Equipment required to maintain weight bearing status per physician orders, Patient's condition creates an increased risk of safety hazard without recommended equipment Rehab Potential: Good Outcomes Measures Prior Function Daily Activity: Raw Score: 24 Prior Function Daily Activity % Impaired: 0% functionally impaired AM-PAC Daily Activity: Raw Score: 19 AM-PAC Daily Activity % Impaired: 42.80% functionally impaired Occupational Therapy Assessment The patient's current functional participation deficits are grooming, UE dressing, LE dressing, bathing, toileting, home management, meal preparation, functional mobility. This reduced independence will limit their life roles of premorbid level individual. The patient's co morbidities do affect patient performance in the above activities and roles. The performance deficits are a result of musculoskeletal, cardiopulmonary impairment(s) in generalized debility, bilateral, lower extremity including acitvity tolerance, , and knowledge deficit. The patient's home setup is a online facilitator, limitations of family / caregiver support is a barrier for return to prior level of function. The patient's education level is a online facilitator, awareness of own capacity and performance is a online facilitator to return to prior level of function. During the assessment, minimal to moderate modification of task was required and multiple treatment options were identified in the plan of care. This consultation required expanded review of the medical and therapy history. Medical Diagnosis: L Foot Cellulitis; R Foot Ulcer; LYNDA; L Midfoot Abscess; Hypokalemia; Lactic Acidosis; Sepsis; Osteomyelitis; s/p L Foot Abscess I&D. UE Function: Bilateral UE AROM to WNL; R UE strength is grossly 4+ to 5/5 in areas tested with gross grasp about 5/5; L UE strength is grossly 5/5 with gross grasp about 4/5 and pt voicing premorbid injury to hand; pt was able to oppose thumb to digits using bilateral hands. Activity Tolerance Activity Tolerance: (Slightly SOB post bed mobility skills.) Therapy Precautions Orthotic Devices: No Weight Bearing Status: X RLE: (Heel Weightbearing Only) LLE: Non Wt bearing General Rehab Precautions: Fall risk Activity as Tolerated Cognition Overall Cognitive Status: Within Functional Limits Arousal/Alertness: Appropriate responses to stimuli Orientation Level: Oriented to place, Oriented to time, Oriented to person(Knew birthdate.) Attention: Attends to distracted environment Hearing Status: WFL Social Interaction: WFL ADL/IADL Grooming : Stand by assistance(Cue for thorough w/face washing/combed hair; EOB level.) LE Dressing: Stand by assistance(Donned R sock at EOB; unable to attempt L d/t wound vac.) Skilled Intervention: Pt has wound vac attached to L foot and he is to return to the OR today for an I&D. Bed Mobility Rolling: Modified independence(HOB flat; use of bedrail.) Supine to Sit: Modified independence(HOB elevated; use of bedrail.) Sit to Supine: Independent(HOB flat.) Functional Transfers Skilled Intervention: Independent with EOB sitting; other functional mobility beyond EOB deferred as WB status of R foot unclear and OT to clarify with content production specialist post evaluation this date. Home Living Type of Home: House Home Layout: One level, Stairs to enter with rails Bathroom Shower/Tub: Tub/shower unit Bathroom Toilet: Standard(Low toilet per pt.) Home Equipment: (Crutches) Additional Comments: Pt prefers to be called Carlitos . Prior Level of Function Level of [place]: Independent with ADLs and functional transfers Lives With: Alone ADL Assistance: Independent Homemaking Assistance: Independent Vocational: On disability Comments: Independent w/ambulation without a device, but balance impaired per pt. Past Medical History: Diagnosis Date Diabetes mellitus, type 2 (HCC) Diabetic nephropathy (HCC) Diabetic neuropathy (HCC) Diabetic retinopathy (HCC) Hyperlipidemia Hypertension Nephropathy Past Surgical History: Procedure Laterality Date AMPUTATION FOOT Left forefoot HAND SURGERY Left For complete objective data, detailed plan of care and patient education refer to: OT EVALUATION flow sheet, OT TREATMENT flow sheet, patient Plan of Care, Plan of Care progress note, and Patient Education. This note stands as the current Discharge Summary upon patient discharge from the hospital or completion of Occupational Therapy Plan of Care. Physical Therapy PHYSICAL THERAPY EVALUATION NOTE Dx: L foot abcess, sepsis, LYNDA Skilled Therapy Needs After Discharge Are Skilled Therapy Services Needed After Discharge: Yes Intensity of Skilled Therapy: 2-3 days per week Anticipated Duration of Skilled Therapy: Duration 10 - 30 days DME Recommendation: None Rehab Potential: Good Outcomes Measures Prior Function - Basic Mobility Raw Score: 24 Points Prior Function - Basic Mobility % Impaired: 0% functionally impaired AM-PAC - Basic Mobility Raw Score: 14 Points AM-PAC - Basic Mobility % Impaired: 53.86% functionally impaired Physical Therapy Assessment History: The following factors influence the patient's participation in the PT plan of care: Personal Factors: Age, Limited Baseline Mobility Environmental Factors: Steps to enter home, Lives alone The following co-morbidities (from this admission or prior) influence the patient's participation in this plan of care: in note Number of History elements affecting this patient's PT plan of care: 1 to 2 Examination of Body Systems: The patient presents with: Musculoskeletal impairments: Functional Endurance Neurologic Impairments: Balance Cardiopulmonary Impairments: Activity Tolerance Vascular Impairments: Amputation(R mid foot) Integumentary Impairments: Active Wound. These impairments result in limitations of . These impairments result in restrictions of Household mobility, Community mobility. Number of Body Systems elements affecting this patient's PT plan of care: 3 or more. Clinical Presentation: The patient's clinical presentation for this PT evaluation is evolving as evidenced by current PT documentation. Activity Tolerance Activity Tolerance: Tolerates 10 - 20 min activity with multiple rests Therapy Precautions Orthotic Devices: No Weight Bearing Status: (per pt NWB LLE) General Rehab Precautions: Fall risk Balance Sitting Balance - Static: (supervision) Bed Mobility Rolling: Supervision Supine to Sit: Supervision Transfers Bed to Chair: Contact guard Squat Pivot Transfers: Contact guard Gait/Locomotion Gait Assistance: (unable) Home Living Type of Home: House Home Layout: One level, Stairs to enter with rails(5 BRINDA, B HR) Prior Level of Function Level of [place]: Independent with ADLs and functional transfers Lives With: Alone Comments: no AD use at home Past Medical History: Diagnosis Date Diabetes mellitus, type 2 (HCC) Diabetic nephropathy (HCC) Diabetic neuropathy (HCC) Diabetic retinopathy (HCC) Hyperlipidemia Hypertension Nephropathy Past Surgical History: Procedure Laterality Date AMPUTATION FOOT Left forefoot HAND SURGERY Left For complete objective data, detailed plan of care and patient education refer to: PT EVALUATION flow sheet, PT TREATMENT flow sheet, patient Plan of Care, Plan of Care progress note, and Patient Education. This note stands as the current Discharge Summary upon patient discharge from the hospital or completion of Physical Therapy Plan of Care. Elect Equip Maint Eng in to see patient for wound vac dressing placement to left dorsal foot ulcer. Measurements in flowsheet. One piece black foam used to ulcer after skin prep and drape placed around ulcer to protect skin. Two pieces black foam over drape to bridge medially on dorsal foot area. Ulcer has moist adherent slough to over 50% of wound bed, remainder pink granulation tissue. Foot is edematous and pink/red. There is a small blistered area lateral to ulcer. This area was not covered with drape only the kerlix used after vac to secure and protect dressing. Negative pressure maintained at 125 mm/Hg. Patient tolerated well. Associated Order(s): IP CONSULT TO CARE MANAGEMENT COMPLEX DISCHARGE Date: 11/08/2020 Time: 1:43 PM Patient Name: More Kingsley Jr. Date of : 1965 Sex: Male Consult received for wound vacuum placement. Initial assessment completed with patient in patient's room. Patient educated to sr. social media & mobile manager role. Patient reports that he resides at home alone. Patient states that before admission to hospital patient was independent with all activities of daily living. Patient denies having and medical equipment at home. Patient denies any current home services. Patient reports that his daughter is able to assist with shopping and some other needs as she lives nearby. Discharge planning discussed with patient. Patient reports that he has had home health care in the past and has done intravenous antibiotics with home health care. Patient reports that he is able to administer intravenous antibiotics. Patient discharge plan is uncertain at this time. Wound vacuum has not yet been placed. Care coordination will follow. Patient Information Primary Caregiver: Self Discharge Planning Living Arrangements: Alone Support Systems: Children Type of Residence: Private residence Prior to Admission Home Care Services: No Current Home Equipment: None Patient Name: More Kingsley Jr. MR #: [id number] : 1965 Physicians: Cheng Staples CNP (Family); No ref. provider found (Referring) Chief complaint: More Kingsley Jr. is a 54 y.o. male presented with left lower extremity swelling and pain. History: I have reviewed the patient's past medical history, past surgical history, family history, social history. 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 Patient had presented on this visit with worsening history of left foot swelling and pain and also with some feeling of weakness. He thought this may have been going on for a couple of days, did not know exactly when he started having some wound. He denied any history of fever or chill, and also had denied any history of trauma. , had a x- ray of the foot that had shown no definite evidence of osteomyelitis. His evaluation currently is for left foot abscess, suspicion for osteomyelitis, and also for antibiotics management. Past Medical History: Diagnosis Date Diabetes mellitus, type 2 (HCC) Diabetic nephropathy (HCC) Diabetic neuropathy (HCC) Diabetic retinopathy (HCC) Hyperlipidemia Hypertension Nephropathy Past Surgical History: Procedure Laterality Date AMPUTATION FOOT Left forefoot HAND SURGERY Left Family History Problem Relation Age of Onset Diabetes Mother Diabetes Father Heart disease Father Diabetes Brother Social History Socioeconomic History Marital status: Single Spouse name: Not on file Number of children: Not on file Years of education: Not on file Highest education level: Not on file Occupational History Not on file Social Needs Financial resource strain: Not on file Food insecurity Worry: Not on file Inability: Not on file Transportation needs Medical: Not on file Non-medical: Not on file Tobacco Use Smoking status: Never Smoker Smokeless tobacco: Never Used Substance and Sexual Activity Alcohol use: Yes Comment: rarely Drug use: Never Sexual activity: Not on file Lifestyle Physical activity Days per week: Not on file Minutes per session: Not on file Stress: Not on file Relationships Social connections Talks on phone: Not on file Gets together: Not on file Attends pentecostalism service: Not on file Active member of club or organization: Not on file Attends meetings of clubs or organizations: Not on file Relationship status: Not on file Other Topics Concern Not on file Social History Narrative Not on file Travel History: None Animal Contact: None Medications: I have reviewed the patient's medications. Scheduled Meds: insulin glargine 25 Units Subcutaneous BID lispro insulin 0-15 Units Subcutaneous at bedtime [START ON 11/07/2020] insulin lispro 0-30 Units Subcutaneous QAM AC insulin lispro 0-30 Units Subcutaneous Daily before lunch insulin lispro 0-30 Units Subcutaneous Before dinner piperacillin-tazobactam (ZOSYN) extended infusion 3.375 g Intravenous Q8H potassium chloride SA 40 mEq Oral Daily vancomycin 1,500 mg Intravenous Q24H vancomycin per pharmacy 1 each Intravenous as indicated by pharmacokinetics Allergy Information: I have reviewed the patient's allergies. Patient has no known allergies. Review of Systems: Review of Systems Constitutional: Positive for fatigue. Negative for chills and fever. Respiratory: Negative for cough, shortness of breath and wheezing. Cardiovascular: Positive for leg swelling. Negative for chest pain and palpitations. Gastrointestinal: Negative for abdominal distention, abdominal pain, constipation, diarrhea, nausea and vomiting. Endocrine: Negative for polydipsia, polyphagia and polyuria. Genitourinary: Negative for dysuria, flank pain, frequency and hematuria. Musculoskeletal: Negative for joint swelling, neck pain and neck stiffness. Skin: Positive for wound. Negative for color change, pallor and rash. Neurological: Negative for dizziness, weakness, numbness and headaches. Psychiatric/Behavioral: Negative for confusion. Decreased concentration: .wetre. Labs: Lab Results Component Value Date WBC 15.27 (H) 11/06/2020 HGB 10.8 (L) 11/06/2020 HCT 34.1 (L) 11/06/2020 MCV 82.6 11/06/2020 PLT 248 11/06/2020 Lab Results Component Value Date HGBA1C 8.2 (H) 11/05/2020 Lab Results Component Value Date SEDRATE 110 (H) 11/05/2020 Lab Results Component Value Date CRP 468.0 (H) 11/05/2020 Radiology: XR Foot Left 3+ Views (Standard) Final Result No definite plain film evidence of osteomyelitis in the right or left foot Workstation ID: [id number] XR Foot Right 3+ Views (Standard) Final Result No definite plain film evidence of osteomyelitis in the right or left foot Workstation ID: [id number] XR Comparison Import Final Result CT Comparison Import Final Result XR Chest 1 View Final Result Shallow lungs with right basilar opacity, could be atelectasis or pneumonia Workstation ID: [id number] MR Foot Left With And Without Contrast (Results Pending) MR Foot Right With And Without Contrast (Results Pending) Physical Examination: Vital Signs: BP 125/82 Pulse (!) 112 Temp 99.2 F (37.3 C) (Oral) Resp 16 Ht 5' 10 Wt 105 kg (231 lb 7.7 oz) SpO2 94% BMI 33.21 kg/m Physical Exam Constitutional: Appearance: He is well-developed. Cardiovascular: Rate and Rhythm: Normal rate. Pulmonary: Effort: No respiratory distress. Breath sounds: No wheezing or rales. Chest: Chest wall: No tenderness. Abdominal: General: There is no distension. Tenderness: There is no abdominal tenderness. Musculoskeletal: General: Swelling and tenderness present. Right lower leg: Edema present. Left lower leg: Edema present. Comments: Status post right transmetatarsal amputation of the foot. Foot was dressed currently, but angry looking. Some erythema and swelling noted. Skin: Coloration: Skin is not pale. Findings: No rash. Neurological: Mental Status: He is alert and oriented to person, place, and time. Psychiatric: Behavior: Behavior normal. Thought Content: Thought content normal. Assessment and Plan: Patient with 1. Left foot abscess 2. Suspicion for osteomyelitis 3. Uncontrolled diabetes. Plan. Continue patient on current therapy Patient currently on Zosyn intravenous Patient on IV vancomycin Have Vanco trough level of 15-20 maintain Follow-up labs, including cultures Follow-up content production specialist Patient needs incision and drainage of left foot abscess Consider MRI of the left foot Dressing according to content production specialist recommendation Endocrinology evaluation for adequate blood sugar control We will continue to follow with you. Problem List Items Addressed This Visit None I have taken time to review patient's information and having discussions, I appreciate seeing your patient, will continue to follow with you, and adjust with more information. Medical decision making. Moderate This note is created with the assistance of a speech-recognition program. While intending to generate a document that actually reflects the content of the visit, the document can still have some errors including those of syntax and sound a- like substitutions which may escape proofreading. In such instances, actual meaning can be extrapolated by contextual derivation. Associated Order(s): IP CONSULT TO MACHINE UMBRELLA TIPPER Met with pt for diabetes education. Pt has had diabetes for many years. Takes Lantus BID and Novolog QID at home. Uses insulin to carb ratio for calculating his Novolog dose before meals but is unable to explain to this educator how he doses his HS Novolog. C/O frequent hypoglycemia in the night. Discussed how insulin works and the difference in timing action of Novolog and Lantus. Advised him to talk with his PCP about his HS dose of Novolog, how he doses it and if he should be taking it due to his hypoglycemia. Discussed the importance of a regular feeding schedule, balancing CHO's at meals, an HS snack, exercise including options for chair exercises, good blood sugar control for healing purposes, pt's A1C of 8.2% and goal, the importance of not going high but also not going low, treatment and prevention of hypoglycemia. Pt seems to have many barriers to making lifestyle changes and his story changes frequently. Denies questions. Handouts: Diabetes and You book A1C Target Levels Associated Order(s): IP CONSULT TO DIETITIAN Nutrition Care Initial Assessment Reason for visit: Physician Consult for DM nutrition education Nutrition Diagnosis: Altered nutrition-related lab values r/t endorine dysfunction AEB POC BG 303-346 mg/dL Nutrition Intervention/Prescription: Initiate Nutrition Education Diet: CCHO 75 gms/meal Oral nutrition supplement: N/A Tube Feeding: N/A Nutrition Goals: Able to verbalize understanding of education provided Start Date:11/06/2020 Expected End Date:11/12/2020 Nutrition Education: Handouts provided: Carbohydrate counting for people with diabetes, plate method/meal planning Pt/family education: Learner: Patient Educated on: Meal planning, CHO counting Readiness: Pt reports that he already knows what he needs to do Method: Explanation and handout Response: Needs reinforcement Assessment: Pertinent clinical information: Pt admitted with left lower extremity cellulitis swelling and pain along with lesions to R foot. Dx'd with T2DM in 2001 and has been on insulin 12-14 years. Reports hypoglycemia often with having to treat with 1 Liter of pop or 15 glucose tablets to help improve BG. When trying to discuss rule with pt in order to treat lows, pt reports that for him, he needs more. Past Medical History: Diagnosis Date Diabetes mellitus, type 2 (HCC) Diabetic nephropathy (HCC) Diabetic neuropathy (HCC) Diabetic retinopathy (HCC) Hyperlipidemia Hypertension Nephropathy Height: 5' 10 Current weight: 105 kg (231 lb 7.7 oz) BMI Body mass index is 33.21 kg/m . - reflects obesity class I. Weight hx: Wt Readings from Last 5 Encounters: 11/05/20 105 kg (231 lb 7.7 oz) 11/05/20 105 kg (231 lb 7.7 oz) 11/05/20 103.4 kg (227 lb 15.3 oz) Current diet order: CCHO 60 gms/meal Recent intake: Fair appetite per pt.Current intake Likely meets estimated needs. Patient/family comments: Pt reports intermittent nausea at this time but not enough to feel like he is going to vomit. BOAT PULLER, pt reports eating 2 meals/day on average, often skipping breakfast and eating fast food at least once a day. He mentions often going to [employer] & ordering a double cheeseburger with a medium Ukrainian macias and medium diet soda. Occasional milk and juice consumption noted. Difficulty Chewing/Swallowing: No Skin Integrity: Redness to leg noted with cellulitis + lesions on foot GI Function: WNL Physical Appearance: no signs or symptoms of malnutrition Labs: Recent Labs 11/06/20 0548 NA 132* K 3.8 BICARB 19* CL 104 GLUCOSE 281* BUN 36* CREATININE 1.54* MG 1.9 PHOS 2.2* Scheduled Meds: insulin glargine 25 Units Subcutaneous BID lispro insulin 0-15 Units Subcutaneous at bedtime [START ON 11/07/2020] insulin lispro 0-30 Units Subcutaneous QAM AC insulin lispro 0-30 Units Subcutaneous Daily before lunch insulin lispro 0-30 Units Subcutaneous Before dinner piperacillin-tazobactam (ZOSYN) extended infusion 3.375 g Intravenous Q8H potassium chloride SA 40 mEq Oral Daily vancomycin 1,500 mg Intravenous Q24H vancomycin per pharmacy 1 each Intravenous as indicated by pharmacokinetics Continuous Infusions: lactated Ringers 100 mL/hr (11/05/202156) Estimated Energy Needs Total Energy Estimated Needs: 1950 kcals/day Method for Estimating Needs: MSJ x 1.3AF -500 kcals/day to promote 1# weight loss/week Total Protein Estimated Needs: 81-97 gms/day Method for Estimating Needs: 1.0-1.2 gms/kg adjusted BW Blanca Miles RDN, LD Office Podiatry Inpatient Consult 11/06/2020 Braeden Conte, ELIE [facility] Patient: More Kingsley Date of : 1965 (54 y.o.) Referring Provider: Refer to consult order in electronic medical record PCP: Cheng Staples CNP ASSESSMENT/PLAN: More Kingsley 54 y.o. male with history of left midfoot abscess with possible underlying osteomyelitis v/s charcot. Right midfoot ulceration with history of right forefoot amputation. Diabetic neuropathy bilateral feet Plan: I explained to patient that based on my clinical exam I was highly concerned of an abscess in his left midfoot. After obtaining a consent I anesthetized the left foot with 6 cc of 2% lidocaine plain around the ankle. A Betadine prep over the abscess was performed, I took a #11 blade and made an incision in which over 10 cc of purulent discharge was obtained, the wound was flushed with over 50 cc of saline, culture was obtained and the wound was packed open which will be done twice a day with quarter inch iodoform packing. Attention to the right foot was given where there is a 1 cm full-thickness ulcer or use a #11 blade and handle. I performed a sharp excisional debridement with the blade to remove all devitalized tissue full- thickness down to the subcutaneous tissue. Flushed the wound with saline culture was taking Xeroform and dry sterile dressing were applied. Await MRI results of both feet. I explained to patient that if patient has osteomyelitis of the left midfoot he will need either 6 weeks of IV antibiotics or a Chopart's amputation. Patient expressed that he wants to do his best to avoid an amputation. Dr. Cherry to see patient tomorrow to review results and make further decision. If things do not improve patient may need a surgical I&D. No new Assessment & Plan notes have been filed under this hospital service since the last note was generated. Service: Podiatry SUBJECTIVE: Chief Complaint/Reason for Visit: Patient is a 54-year-old male who developed a left swollen foot over the last 2 weeks. Patient is from [facility] where he was transferred down here to be evaluated and treated. Patient lost his right forefoot 3 years ago due to infection. 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 History of Present Illness: More Kingsley is a 54 y.o. male presenting from [facility] with complaint of left midfoot abscess and nonhealing ulcer of the right foot. Pending Lab and Radiology Results Order Current Status C3 Complement In process C4 Complement In process Hemoglobin A1c In process Hemoglobin A1c In process Procalcitonin In process Blood Culture #1 Preliminary result Blood Culture #2 Preliminary result Interpretation of Testing: I personally reviewed the xrays and agree with the interpretation(s) with the following comments. X-rays are concerning for Charcot versus osteomyelitis of the left tarsometatarsal joint. Patient has an old first MPJ cheilectomy degenerative arthritis. patient has a right forefoot amputation. Review of Systems: MuscSkel:No arthralgias All other systems reviewed and negative other than HPI Past Medical History: Diagnosis Date Diabetes mellitus, type 2 (HCC) Diabetic nephropathy (HCC) Diabetic neuropathy (HCC) Diabetic retinopathy (HCC) Hyperlipidemia Hypertension Nephropathy Past Surgical History: Procedure Laterality Date AMPUTATION FOOT Left forefoot HAND SURGERY Left Family History Problem Relation Age of Onset Diabetes Mother Diabetes Father Heart disease Father Diabetes Brother Social History Tobacco Use Smoking Status Never Smoker Smokeless Tobacco Never Used Additional History Comments: None Allergies: Patient has no known allergies. Current HOSPITAL Medications: acetaminophen (TYLENOL) tablet 650 mg, 650 mg, Oral, Q6H PRN sodium chloride (PF) (NS) 0.9 % contrast line flush 10 mL, 10 mL, Intravenous, Once in imaging AND sodium chloride (PF) (NS) 0.9 % contrast line flush 10 mL, 10 mL, Intravenous, Once in imaging AND gadoterate meglumine (DOTAREM) injection 20 mL, 20 mL, Intravenous, Once in imaging sodium chloride (PF) (NS) 0.9 % contrast line flush 10 mL, 10 mL, Intravenous, Once in imaging AND sodium chloride (PF) (NS) 0.9 % contrast line flush 10 mL, 10 mL, Intravenous, Once in imaging AND gadoterate meglumine (DOTAREM) injection 20 mL, 20 mL, Intravenous, Once in imaging insulin glargine (LANTUS) injection 25 Units, 25 Units, Subcutaneous, BID insulin lispro (HumaLOG) injection 0-15 Units, 0-15 Units, Subcutaneous, at bedtime [START ON 11/07/2020] insulin lispro (HumaLOG) injection 0-30 Units, 0-30 Units, Subcutaneous, QAM AC insulin lispro (HumaLOG) injection 0-30 Units, 0-30 Units, Subcutaneous, Daily before lunch insulin lispro (HumaLOG) injection 0-30 Units, 0-30 Units, Subcutaneous, Before dinner ipratropium-albuteroL (DUO-NEB) 0.5-2.5 mg/3 ml nebulizer solution 3 mL, 3 mL, Inhalation, Q2H PRN lactated Ringers infusion, 100 mL/hr, Intravenous, Continuous lidocaine 10 mg/mL (1 %) injection - ADS Override Pull, , , ondansetron (ZOFRAN) injection 4 mg, 4 mg, Intravenous, Q6H PRN piperacillin-tazobactam (ZOSYN) IVPB 3.375 g (premix), 3.375 g, Intravenous, Q8H potassium chloride SA (K-DUR,KLOR-CON) CR tablet 40 mEq, 40 mEq, Oral, Daily vancomycin (VANCOCIN) 1500 mg in sodium chloride 0.9% (NS) 500 mL IVPB, 1,500 mg, Intravenous, Q24H vancomycin per pharmacy 1 each, 1 each, Intravenous, as indicated by pharmacokinetics OBJECTIVE: Physical Examination: Integument-there is a boggy area on the dorsal lateral aspect the left midfoot with overlying blister concerning for an abscess. There is an old scar over the first metatarsal phalangeal joint from a previous surgery. The plantar aspect of the right foot had a 1 cm full-thickness ulcer with surrounding devitalized tissue and callus. There is multiple eschars on the plantar aspect of the right foot. Patient does have a forefoot amputation on the right Neuro-profoundly diminished bilateral feet Vascular-DP and PT pulses are palpable bilateral feet, capillary fill time is less than 3 seconds on the left foot. Both feet are warm to touch Musculoskeletal-patient has a very swollen left tarsometatarsal joint. There is also a right forefoot amputation. BP 112/75 Pulse (!) 110 Temp 98.4 F (36.9 C) (Oral) Resp 16 Ht 5' 10 Wt 105 kg (231 lb 7.7 oz) SpO2 91% BMI 33.21 kg/m none Laboratory and Additional Data Reviewed: Reviewed 11/06/20 10:59 AM: Radiology Associated Order(s): IP CONSULT TO ENDOCRINOLOGY Patient ID: Patient Name: More Kingsley Admit Date: 11/05/2020 MR #: [id number] : 1965 Current location: [facility] [place] Physicians: Cheng Staples CNP (Family); Dr. Pinedo (Referring) Reason for consult: Type 2 diabetes out of control Assessment/Plan: Dx: Type 2 diabetes, under poor control Currently taking as outpatient: Metformin 1000 mg twice daily Humalog insulin: 1:3 units at breakfast; 1:3 units at lunch; 1:3 units at supper Lantus insulin: 38 units at breakfast; 36 units at bedtime Current Hemoglobin A1C= No results found for: HGBA1C NOTES: BG and labs reviewed since admission. Patient reports taking QID insulin as an outpatient. Admitted with bilateral foot wounds and cellulitis. Blood Glucoses: 11/05: ___---___---___---309 11/06: 303 Plan: 1. Rx changes: Adjust insulin doses. Humalog insulin: 1:3 units at breakfast; 1:3 units at lunch; 1:3 units at supper Lantus insulin: 25 units at breakfast; 25 units at bedtime Hold metformin. 2. Education: Reviewed ABCs of diabetes management (respective goals in parentheses): A1C (7.0-8.0), blood pressure (<130/80), and cholesterol (LDL <100). Referral to Diabetes Education Referral to Nutrition therapy Subjective: Brief HPI: Mr. Kingsley is a 54 year old male with a past medical history of type 2 DM, HTN, hyperlipidemia who presented for evaluation of left lower extremity cellulitis swelling and pain along with lesions to right foot. Patient reports no chest pain. Occasional SOB. No blurred or double vision. No fever or chills. Patient reports occasional nausea. Patient's labs reviewed with creat 1.82, K: 3.3, Glucose 309. Patient has had diabetes for 18 years. Diagnosed in 2001. Patient is currently taking Humalog insulin: 1:3 units at breakfast; 1:3 units at lunch; 1:3 units at supper Lantus insulin: 38 units at breakfast; 36 units at bedtime along with metformin 1000 mg BID as an out patient. Patient has taken Insulin for 12-14 years. Currently the patient is receiving no insulin at this time. Blood sugar levels since admission have been ranging from 303-309 mg/dL. Current monitoring regimen: home blood tests - 1-4 times daily Complications of diabetes include: Retinopathy: Positive: Proliferative diabetic retinopathy and Intraocular injection Nephropathy: Positive Peripheral Neuropathy: Positive Autonomic Neuropathy: Negative Allergies: No Known Allergies Home Medications: Outpatient Medications Marked as Taking for the 11/05/20 encounter (Hospital Encounter): insulin aspart U-100 (NovoLOG) 100 unit/mL injection, Inject under the skin 3 (three) times a day before meals Sliding scale, patient unsure of doses. . insulin glargine (LANTUS) 100 unit/mL injection, Inject 38 Units under the skin daily AM . insulin glargine (LANTUS) 100 unit/mL injection, Inject 32 Units under the skin nightly HS . metFORMIN (GLUCOPHAGE) 1000 MG tablet, Take 1,000 mg by mouth 2 (two) times a day with meals . Current Medications: heparin (porcine) 5,000 Units Subcutaneous Q8H SANCHO lidocaine piperacillin-tazobactam (ZOSYN) extended infusion 3.375 g Intravenous Q8H potassium chloride SA 40 mEq Oral Daily vancomycin 1,500 mg Intravenous Q24H vancomycin per pharmacy 1 each Intravenous as indicated by pharmacokinetics acetaminophen, sodium chloride (PF) AND sodium chloride (PF) AND gadoterate meglumine, sodium chloride (PF) AND sodium chloride (PF) AND gadoterate meglumine, ipratropium-albuteroL, ondansetron Review of Systems: Review of Systems Constitutional: Positive for fatigue. Negative for unexpected weight change. Eyes: Negative for visual disturbance. Respiratory: Positive for shortness of breath. Negative for cough. Cardiovascular: Negative for chest pain and leg swelling. Gastrointestinal: Positive for nausea. Negative for abdominal pain, constipation, diarrhea and vomiting. Endocrine: Negative for polydipsia, polyphagia and polyuria. Genitourinary: Negative for frequency and urgency. Musculoskeletal: Positive for arthralgias and joint swelling. Skin: Positive for rash (redness and swelling to LLE) and wound (multiple wounds to foot). Neurological: Negative for numbness and headaches. Psychiatric/Behavioral: Negative for agitation and sleep disturbance. The patient is not nervous/anxious. History: Past Medical History: Diagnosis Date Diabetes mellitus, type 2 (HCC) Diabetic nephropathy (HCC) Diabetic neuropathy (HCC) Diabetic retinopathy (HCC) Hyperlipidemia Hypertension Nephropathy Past Surgical History: Procedure Laterality Date AMPUTATION FOOT Left forefoot HAND SURGERY Left Family History Problem Relation Age of Onset Diabetes Mother Diabetes Father Heart disease Father Diabetes Brother Social History Tobacco Use Smoking status: Never Smoker Smokeless tobacco: Never Used Substance Use Topics Alcohol use: Yes Comment: rarely Drug use: Never The following portions of the patient's history were reviewed and updated as appropriate: allergies, current medications, past family history, past medical history, past social history, past surgical history and problem list. Objective: BP 112/75 Pulse (!) 110 Temp 98.4 F (36.9 C) (Oral) Resp 16 Ht 5' 10 Wt 105 kg (231 lb 7.7 oz) SpO2 91% BMI 33.21 kg/m Wt Readings from Last 3 Encounters: 11/05/20 105 kg (231 lb 7.7 oz) 11/05/20 105 kg (231 lb 7.7 oz) 11/05/20 103.4 kg (227 lb 15.3 oz) Physical Exam: Physical Exam Constitutional: He is oriented to person, place, and time. He appears well- developed and well-nourished. HENT: Head: Normocephalic and atraumatic. Eyes: Pupils are equal, round, and reactive to light. Conjunctivae are normal. Neck: Normal range of motion. Neck supple. No thyromegaly present. Cardiovascular: Normal rate, regular rhythm, normal heart sounds and intact distal pulses. No murmur heard. Pulmonary/Chest: Effort normal and breath sounds normal. Abdominal: Soft. Musculoskeletal: Normal range of motion. General: Deformity (left foot) and edema present. Neurological: He is alert and oriented to person, place, and time. Skin: Skin is warm and dry. There is erythema. Redness and swelling to left lower extremity Right foot status post forefoot amputation along with multiple lesions in various phases of healing. Psychiatric: He has a normal mood and affect. His behavior is normal. Judgment and thought content normal. Laboratory Review: BP 112/75 Pulse (!) 110 Temp 98.4 F (36.9 C) (Oral) Resp 16 Ht 5' 10 Wt 105 kg (231 lb 7.7 oz) SpO2 91% BMI 33.21 kg/m No results found for: HGBA1C Glucose (mg/dL) Date Value 11/06/2020 281 (H) Creatinine (mg/dL) Date Value 11/06/2020 1.54 (H) No results found for: CHOL, TRIG, HDL, LDLCALC, LDL Lab Results Component Value Date TSH 0.80 11/06/2020 No results found for: FREET4 Lab Results Component Value Date WBC 15.27 (H) 11/06/2020 HGB 10.8 (L) 11/06/2020 HCT 34.1 (L) 11/06/2020 MCV 82.6 11/06/2020 PLT 248 11/06/2020 This SmartLink has not been configured with any valid records. This SmartLink has not been configured with any valid records. Laboratory and Additional Data Reviewed: Laboratory 11/06/20 10:29 AM Medications 11/06/20 10:29 AM Transcriptions 11/06/20 10:29 AM Thank you for this consultation, we will continue to follow this patient with you. Jack Coffey CNP documented in this encounter Hospital Course - Palak Arora MD - 11/20/2020 10:56 AM [facility] - Tricia Underwood PTA - 11/19/2020 9:16 AM [facility] - Mauricio Brunner OTA - 11/18/2020 4:10 PM EST Miscellaneous Notes (unrecog nized section and content) More Kingsley is a 54 y.o. male is known for hypertension there is mellitus hyperlipidemia chronic kidney disease stage III with creatinine baseline is 1.3 and GFR 40 to 45% presumed diabetic nephropathy, is here due to swelling and pain in the left for this for the past 2 to 3 days, has also ulcer on the right foot, reported feeling fatigue loss of appetite headaches, denies fevers or chills was evaluated emergency department blood glucose elevated close to 400, elevated lactic acid and ketones, leukocytosis and acute kidney injury his creatinine is 1.8, tachycardia with frequent PVCs -Left foot cellulitis, right foot with deep-seated ulcer concern underlying deep tissue infection and osteomyelitis, with leukocytosis and elevated C-reactive protein -Acute kidney injury prerenal azotemia and infection related -Recurrent PVCs and often noticed bigeminy -Hypokalemia and hypophosphatemia -Lactic acidosis and mild ketosis We will start broad-spectrum antibiotics cultured the blood, do MRI of the feet and consult podiatry and infectious disease, insulin sliding scale and consult endocrinology, place the patient telemetry, given potassium and phosphate replacement, magnesium within acceptable range. IV hydration and follow the trend kidney function. A/P on the day of discharge was as follows: Sepsis Left foot cellulitis and osteomyelitis with MSSA Sepsis resolved on IV cefazolin, picc line placed, will need 4 weeks OP ATB CRP 132 down from 468 Pod#2 s/p debridement and application of wound vac Acute kidney injury prerenal azotemia - resolved Type II DM adequate glycemic control Endo on board Currently on lantus 25u HS, and 1:4 CHO ratio. -Recurrent PVCs and often noticed bigeminy- stable -Hypokalemia - resolved -Lactic acidosis and mild ketosis- resolved - possible dc in the coming 24 hours. - podiatry recommendations on the day of discharge was as follows: Did have a long discussion today with patient regarding limb salvage ability. Clinically the patient is improving with wound VAC therapy post washout however, he is with substantial tissue loss and is still with an elevated risk of limb loss. Despite this risk, he does wish to continue with IV antibiotics and wound VAC therapy and defer formal amputation Erythema to the foot additionally has improved and bone biopsy is pending positive for staph. Wound VAC orders at white foam plus black foam 150 mmHg VAC changes likely Wednesday. Okay to discharge to SNF from podiatric surgical intervention as there is currently no further surgical intervention warranted. Can follow-up in the wound care clinic 1 week post discharge with Dr. Cherry. PHYSICAL THERAPY VISIT VARIANCE NOTE Attempted to see patient at this time, but unable secondary to: PT Visit [facility]: Refused(stating moving well, does not need PT at this time). Will follow up as appropriate. OCCUPATIONAL THERAPY VISIT VARIANCE NOTE Attempted to see patient at this time, but unable secondary to: OT Visit [facility]: Patient Unavailable due to having L ankle I &D with wound vac placement . Will follow up as appropriate. Brief Post Operative Note Patient Name: More Kingsley Jr. : 1965 (55 y.o.) Date of Service: 11/18/2020 CSN: [id number] Procedure(s): INCISION AND DRAINAGE FOOT/ANKLE with Application of Wound Vac Pre-Operative Diagnoses: * Abscess of left ankle Post-Operative Diagnoses: * Same as Pre-Op Diagnosis Surgeon(s) and Role: * Leanne Cherry DPM - Primary Anesthesiologist: Almas Gutierrez MD GIZZARD PULLER: Kathrine Page CRNA Anesthesiologist Felt Hat Pouncing Operator Hand: SUNDEEP Machado Director Digital Analytics: Kathrine Rice RN; Paola German RN Scrub Person: ST Lupe Scrub Person Float: ST Doug Operative findings: Approximately 20 cc of purulence was drained from left medial ankle Intra and immediate post-operative complications: None Type of anesthesia used: Estimated blood loss: 2 mL Estimated urine output: 0 mL Specimen(s): ID Type Source Tests Collected by Time Destination 1 : Bone Foot, Left BONE AEROBIC CULTURE, BONE ANAEROBIC CULTURE Leanne Cherry, ELIE 11/18/2020 1247 A : Left Foot Bone Bone Foot, Left TISSUE EXAM Leanne Cherry DPM 11/18/2020 1259 Implant(s): * No implants in log * Drain(s): * No LDAs found * Wound(s): Wound 11/08/20 1 Foot (mid) Anterior;Left (Active) Reassessment Unchd 11/18/20 1000 Dressing Status Intact;Other (comment) 11/18/20 08 Dressing Changed Reinforced 11/17/201999 Wound Image 11/08/20 1350 Wound Length (cm) 4.5 cm 11/08/20 1350 Wound Width (cm) 1.5 cm 11/08/20 1350 Wound Depth (cm) 0.9 cm 11/08/20 1350 Wound Surface Area (cm^2) 6.75 cm^2 11/08/20 1350 Wound Volume (cm^3) 6.08 cm^3 11/08/20 1350 Area % Change 0 11/08/20 1350 Drainage Amount Small 11/18/20 0800 Drainage Description Serosanguineous 11/18/20 0800 Odor None 11/18/20 0800 Wound Bed Characteristics DIEGO (Unable to assess) 11/17/201999 Debi-wound Assessment DIEGO 11/17/20 0815 Treatments Not Applicable 11/15/202047 Hemostasis Not applicable 11/15/20 204 Cleansed Not Applicable 11/15/20 204 Primary Dressing Iodoform 11/18/20 0800 Secondary Dressing Gauze roll 11/18/20 08 Compression Dressing Not Applicable 11/15/20 204 Wound 11/09/20 Foot (other distal) Anterior;Right (Active) Reassessment Unchd 11/18/20 1000 Dressing Status Clean;Dry;Intact 11/18/20 0800 Dressing Changed Changed 11/16/20 0506 Drainage Amount None 11/18/20 0800 Drainage Description DIEGO 11/17/20 0815 Odor None 11/18/20 0800 Wound Bed Characteristics [place] 11/17/20 0815 Debi-wound Assessment Brown;Scaly 11/16/20 0506 Treatments Not Applicable 11/16/20 0506 Hemostasis Not applicable 11/16/20 0506 Cleansed Sterile water 11/16/20 0506 Primary Dressing Other (Comment) 11/18/20 0800 Secondary Dressing Gauze pad;Gauze roll 11/18/20 0800 Compression Dressing Not Applicable 11/18/20 0800 Wound 11/18/20 Surgical Wound Foot Left (Active) Leanne Cherry DPM 11/18/2020 1:34 PM Wound VAC remains intact, IV atb. Problem: Actual or potential alteration in health Goal: Absence of healthcare acquired conditions Outcome: Partially Met Goal: Knowledge of Interdisciplinary Plan of Care Outcome: Partially Met Goal: Knowledge of Enviroment Outcome: Partially Met Problem: Pain Goal: Manage acute pain Outcome: Partially Met Goal: Manage chronic pain Outcome: Partially Met Goal: Reduced pain sensation Outcome: Partially Met Goal: Achievement of comfort function goal Outcome: Partially Met Problem: Plan for Discharge Goal: Knowledge of discharge plan and instructions Outcome: Partially Met Problem: Skin Integrity - Impaired Goal: Wound healing Outcome: Partially Met Goal: Absence of new skin breakdown Outcome: Partially Met Problem: Falls, Risk of Goal: Absence of falls Outcome: Partially Met Problem: Actual or potential alteration in health Goal: Absence of healthcare acquired conditions Outcome: Partially Met Goal: Knowledge of Interdisciplinary Plan of Care Outcome: Partially Met Goal: Knowledge of Enviroment Outcome: Partially Met Problem: Pain Goal: Manage acute pain Outcome: Partially Met Goal: Manage chronic pain Outcome: Partially Met Goal: Reduced pain sensation Outcome: Partially Met Goal: Achievement of comfort function goal Outcome: Partially Met Problem: Plan for Discharge Goal: Knowledge of discharge plan and instructions Outcome: Partially Met Problem: Skin Integrity - Impaired Goal: Wound healing Outcome: Partially Met Goal: Absence of new skin breakdown Outcome: Partially Met Problem: Falls, Risk of Goal: Absence of falls Outcome: Partially Met Brief Post Operative Note Patient Name: More Kingsley JrFrankie : 1965 (55 y.o.) Date of Service: 11/11/2020 CSN: [id number] Procedure(s): DEBRIDEMENT AND DRESSING CHANGE APPLICATION WOUND VAC Pre-Operative Diagnoses: * Abscess, left foot Post-Operative Diagnoses: * Same as Pre-Op Diagnosis Surgeon(s) and Role: * Leanne Cherry DPM - Primary Anesthesiologist: Javi Barriga MD GIZZARD PULLER: Jasmine Gauthier CRNA Anesthesiologist Felt Hat Pouncing Operator Hand: SUNDEEP Machado Director Digital Analytics: Kathrine Rice RN; Evie Hunt RN Scrub Person: Paola German RN Operative findings: Extensive tunneling noted from the wound site extending proximally towards the medial ankle, medial dorsal foot, medial plantar foot, lateral plantar foot, and proximal lateral foot towards the cuboid. Approximately 60 cc of purulence was expressed. Intra and immediate post-operative complications: None Type of anesthesia used: General Estimated blood loss: 10 mL Estimated urine output: Specimen(s): ID Type Source Tests Collected by Time Destination 1 : Bone Foot, Left BONE AEROBIC CULTURE, BONE ANAEROBIC CULTURE Leanne Cherry DPM 11/11/2020 1645 A : Bone Foot, Left TISSUE EXAM Leanne Cherry DPM 11/11/2020 1644 Implant(s): * No implants in log * Drain(s): * No LDAs found * Wound(s): Wound 11/08/20 Foot (mid) Anterior;Left (Active) Reassessment Unchd 11/11/20 1200 Dressing Status Dry;Clean;Intact 11/11/20 0827 Dressing Changed New 11/08/20 1345 Wound Image 11/08/20 1350 Wound Length (cm) 4.5 cm 11/08/20 1350 Wound Width (cm) 1.5 cm 11/08/20 1350 Wound Depth (cm) 0.9 cm 11/08/20 1350 Wound Surface Area (cm^2) 6.75 cm^2 11/08/20 1350 Wound Volume (cm^3) 6.08 cm^3 11/08/20 1350 Area % Change 0 11/08/20 1350 Drainage Description Brown 11/08/20 1345 Primary Dressing NPWT 11/08/20 1350 Wound 11/09/20 Foot (other distal) Anterior;Right (Active) Reassessment Unchd 11/11/20 1200 Dressing Status Dry;Clean;Intact 11/11/20 0827 Dressing Changed Changed 11/10/20 0523 Wound 11/11/20 Surgical Wound Foot Left (Active) Leanne Cherry DPM 11/11/2020 5:16 PM Noted documentation of fever, leukocytosis. Clinical Indicators: ? Per H&P: Left foot cellulitis, ulcer on right foot...fatigue, loss of appetite...blood glucose elevated...LYNDA infection related...lactic acidosis ? Per 11/06 PN: Febrile with T-max 101..2, Leukocytosis 15.2...IV Vanco, IV Zosyn ? On admit: HR 121, RR 20-22, WBC 15.85, LA 3.1...T max since admit 101.2 ? Per MAR: 2L IVF bolus, LR at 100ml/hr, IV Zosyn, IV Vanco ? Admitted with diabetic foot ulcer, cellulitis, possible osteomyelitis Please specify the diagnosis reflective of the above indicators in the progress notes. For Example: ? Sepsis due to diabetic foot ulcer and cellulitis ? Diabetic foot ulcer and cellulitis only, no sepsis ? Other___ (please specify) ? Unable to determine Clinical Indicators for Sepsis may include: ? Criteria for SIRS (Systemic Inflammatory Response Syndrome): o Fever > 100.4 F or hypothermia < 96.8 F o Leukocytosis - WBC > 12,000 or leukopenia, WBC < 4,000, or >10% bands o Tachycardia > 90 beats/minute o Tachypnea - RR > 20 breaths/minute or PaCO2 < 32 mmHG ? Hypoxemia (pO2 < 75 mmHg on room air or PaCO2 < 32 mmHg) ? Positive blood culture ? Change in mental status ? Hypotension Thank you, Evie Rueda, TAMARAN, RN Clinical Documentation Improvement [facility] [phone] After business hours you may contact Arianna Hooks at [phone] (Weekdays until 10 PM and weekends 8 AM -10 PM) Problem: Actual or potential alteration in health Goal: Absence of healthcare acquired conditions Outcome: Partially Met Goal: Knowledge of Interdisciplinary Plan of Care Outcome: Partially Met Goal: Knowledge of Enviroment Outcome: Partially Met Problem: Pain Goal: Manage acute pain Outcome: Partially Met Goal: Manage chronic pain Outcome: Partially Met Goal: Reduced pain sensation Outcome: Partially Met Goal: Achievement of comfort function goal Outcome: Partially Met Problem: Plan for Discharge Goal: Knowledge of discharge plan and instructions Outcome: Partially Met Problem: Skin Integrity - Impaired Goal: Wound healing Outcome: Partially Met Goal: Absence of new skin breakdown Outcome: Partially Met documented in this encounter Care Teams (unrecognized sec tion and content) Team Status: Active Member Role Status Dates Cheng Staples Primary Care Provider Active Team Status: Inactive Member Role Status Dates Cheng Staples Primary Care Provider Active Sta rt: May 09, 2024 End: May 09, 2024 Tracy Yoon MD Attending Provider Active Start: May 09, 2024 End: May 09, 2024 Team Status: Inactive Member Role Status Dates Cheng Staples Primary Care Provider Active Sta rt: June 06, 2024 End: June 06, 2024 Tracy Yoon MD Attending Provider Active Start: June 06, 2024 End: June 06, 2024 Team Status: Active Member Role Status Dates Provider Conversion Attending Provider Active St art: November 25, 2023 Team Status: Inactive Member Role Status Dates Cheng Staples Primary Care Provider Active Sta rt: January 07, 2024 End: January 07, 2024 Maxi John APRN Attending Provider Active Start: January 07, 2024 End: January 07, 2024 Team Status: Inactive Member Role Status Dates Cheng Staples Primary Care Provider Active Sta rt: February 03, 2024 End: February 03, 2024 Tracy Yoon MD Attending Provider Active Start: February 03, 2024 End: February 03, 2024 Team Status: Active Member Role Status Dates Cheng Staples Primary Care Provider Active Sta rt: February 03, 2024 Tracy Yoon MD Attending Provider, Other Provider Act albaro Start: February 03, 2024 Chef De Partie Relationship Specialty Start Date End Date Jonny Zhu MD [address] [place] [id number] PCP - General Family Medicine 01/06/24 Cheng Staples NP [address] [place] [id number] Nurse Practitioner Family Medicine 07/23/23 Cheng Staples NP [address] [place] [id number] Nurse Practitioner Family Medicine 01/06/24 Team Status: Inactive Member Role Status Dates Sebastián Santillan APRN Attending Provider Active Start: November 08, 2023 End: November 08, 2023 Team Status: Inactive Member Role Status Dates Cheng Staples Primary Care Provide r, Attending Provider Active Start: November 08, 2023 End: November 08, 2023 Team Status: Inactive Member Role Status Dates Cheng Staples Primary Care Provider Active Sta rt: June 12, 2024 End: June 12, 2024 Tracy Yoon MD Attending Provider Active Start: June 12, 2024 End: June 12, 2024 Chef De Partie Relationship Specialty Start Date End Date Cheng Staples APRN-BOX PERSON PCP - General Nurse Practitioner 03/05/25 Chef De Partie Relationship Specialty Start Date End Date Cheng Staples APRN-BOX PERSON PCP - General Nurse Practitioner 03/05/25 Chef De Partie Relationship Specialty Start Date End Date Art Freeman DO [address] [place] [address], [place] [address] PCP - General Family Medicine 04/26/25 Chef De Partie Relationship Specialty Start Date End Date Cheng Staples APRN-BOX PERSON PCP - General Nurse Practitioner 03/05/25 Chef De Partie Relationship Specialty Start Date End Date BrendalaurenArt DO [address] [facility], [address] [place] [address] PCP - General Family Medicine 04/26/25 Chef De Partie Relationship Specialty Start Date End Date Art Freeman DO [address] [facility], [address] [place] [address] PCP - General Family Medicine 04/26/25 Chef De Partie Relationship Specialty Start Date End Date Art Freeman DO [address] [facility], [address], [place] [address] PCP - General Family Medicine 04/26/25 Goals (unrecognized section and content) Goals may be documented in a n alternate section Source Comments (unrecognize d section and content) In the event this informatio n is protected by the Federal Confidentiality of Alcohol and Drug Abuse Patient Records regulations: The Federal rules restrict any use of the information to criminally investigate or prosecute any alcohol or drug abuse patient.[facility] the event this information is protected by the Federal Confidentiality of Alcohol and Drug Abuse Patient Records regulations: The Federal rules restrict any use of the information to criminally investigate or prosecute any alcohol or drug abuse patient.[facility] the event this information is protected by the Federal Confidentiality of Alcohol and Drug Abuse Patient Records regulations: The Federal rules restrict any use of the information to criminally investigate or prosecute any alcohol or drug abuse patient.[facility] the event this information is protected by the Federal Confidentiality of Alcohol and Drug Abuse Patient Records regulations: The Federal rules restrict any use of the information to criminally investigate or prosecute any alcohol or drug abuse patient.[facility] the event this information is protected by the Federal Confidentiality of Alcohol and Drug Abuse Patient Records regulations: The Federal rules restrict any use of the information to criminally investigate or prosecute any alcohol or drug abuse patient.[facility] FOR RECORDS PERTAINING TO PATIENTS WHO ARE OR HAVE BEEN ENROLLED IN A CHEMICAL DEPENDENCY/SUBSTANCEABUSE PROGRAM, SOME INFORMATION MAY BE OMITTED. This clinical summary was aggregated from multiple sources. Caution should be exercised in using it in the provision of clinical care. This summary normalizes information from multiple sources, and as a consequence, information in this document may materially change the coding, format and clinical context of patient data. In addition, data may be omitted in some cases. CLINICAL DECISIONS SHOULD BE BASED ON THE PRIMARY CLINICAL RECORDS. [employer] [facility]. provides no warranty or guarantee of the accuracy or completeness of information in this document.
== END 2025-05-16 14:24 | disposition home or self-care (01) ==
LOC: WC 14:24
PROVIDERS: PCP Nurse Practitioner; Visit Provider Physician Assistant
DX: E11.621 Type 2 diabetes mellitus with foot ulcer (principal); L97.415 Non-pressure chronic ulcer of right heel and midfoot with muscle involvement without evidence of necrosis
CPT/HCPCS: G0463

== ENCOUNTER 2025-06-05 10:46 | Outpatient (OUT) | payer MEDICARE, SELFPAY ==
--- OUTSIDE RECORDS SUMMARY | 2025-06-05 10:49 | XMS_ITS | Encounter Summary ---
Author Organization [facility] Address [address] [place] [address] Care Team Providers Care Maintenance Data Analyst Name Role Phone Marilee Staples ENTRY LEVEL JAVA DEVELOPER Unavailable [phone] Jonny Zhu MD Primary Care Provider [phone] Marilee Staples ENTRY LEVEL JAVA DEVELOPER Unavailable [phone] Unallocated, Bonnie Lama MD Primary Care Provi dora Reason for Visit * Reason Comments Med Refill Encounter Details Date Type Department Care Team (Late st Contact Info) Description 02/28/2025 Refill [facility] [address] [place] [address] Marilee Staples, ENTRY LEVEL JAVA DEVELOPER [address] [place] [address] Primary hypertension Social History Tobacco Use Types [...] Never 01/06/2024 How often do you attend yarsanism or mormonism serv ices? Never 01/06/2024 Do you belong to any clubs o r organizations such as yarsanism groups, unions, fraternal or athletic groups, or [...] Recorded Patient Health Questionnaire-2 Score 0 03/13/2024 [facility] - Occupational Stress Questionnaire Answer Date [...] money to buy more. Often true 01/06/20 Within the past 12 months, t he [...] place to sleep or slept in a senior care (including now)? No 01/06/2024 Sex and Gender [...] documented as of this encounter Care Teams Maintenance Data Analyst Relationship Specialty Start Date End Date Jonny Zhu MD [address] [place] [address] PCP - General Family Medicine 01/06/24 05/29/25 Unallocated, Noms Kelby, [address] [facility] [address] PCP - General Family Medicine 05/30/25 Marilee Staples NP [address] [place] [address] Nurse Practitioner Family Medicine 07/23/23 05/29/25 Marilee Staples NP [address] [place] [address] Nurse Practitioner Family Medicine 01/06/24 05/29/25 documented as of this encounter
--- OUTSIDE RECORDS SUMMARY | 2025-06-05 10:49 | XMS_ITS | Encounter Summary ---
Author Organization [employer] Address [id number] [address] [place] [address] Care Team Providers Care Batch Freezer Operator Name Role Phone Jessee Molina DO Primary Care Provider Encounter Details Date Type Department Care Team (Late st Contact Info) Description 02/21/2021 [facility]phone [facility] [address] [place] [address] Lakshmi Tapia [facility] Social History Tobacco Use Types Packs/Day [...] Never 02/07/2021 How often do you attend islam or episcopalian serv ices? Never 02/07/2021 Do you belong to any clubs o r organizations such as islam groups, unions, fraternal or athletic groups, or [...] Answer Date Recorded Total Score 0 02/07/2021 [facility] - Occupational [...] Do you need help finding a [facility] career center and/or a training [...] 02/21/2021 12:45 PM EDT Nani called from [facility] stating that Mr. Rodriguez will be discharged to [facility] in [place]. Once he is discharged he will not be getting Hyperbaric treatments. She stated they exhaustedall efforts to set something up, but it was not possible. Her number is [phone] if you would like to speak with [...] Office Visit [facility] [address] [place] [address] [address] [address] Jessee Molina, [address] [place] [address], [facility] [address], [place] [address] documented as of this encounter Goals Goal Patient Goal Type Associated Problems Recent Progress Patient-Stated? Author <enter goal here> General Yes Yulia Ocasio, RN Note: Evaluation of progress towards goal: [facility] documented as of this encounter Visit Diagnoses Not on filedocumented in this encounter Additional Health Concerns Infection Onset Date Last Indicated Resolved Time COVID-19 Rule-Out 08/29/2021 08/29/2021 08/30/2021 11:54 PM EDT Assessment Noted Time PHQ-9 Depression Total Score: 0 02/08/20 21 1:19 PM EDT documented as of this encounter Care Teams Batch Freezer Operator Relationship Specialty Start Date End Date Jessee Molina DO [address] [place] [address], [place] [address] PCP - General Family Medicine 04/26/25 documented as of this encounter
--- OUTSIDE RECORDS SUMMARY | 2025-06-05 10:49 | XMS_ITS | Encounter Summary ---
Author Organization [facility] Address [address] [place] [address] Care Team Providers Care Manager Inventory Control Name Role Phone Amor Fernandez MD Primary Care Provider [phone] Marilee Staples FLOATMAN Unavailable [phone] Jonny Zhu MD Unavailable Jonny Zhu MD Primary Care Provider Jonny Zhu MD Primary Care Provider Marilee Staples FLOATMAN Unavailable [phone] Unallocated, Noms Provider Primary Care Provi dora Encounter Details Date Type Department Care Team (Late st Contact Info) Description 04/13/2023 Abstract [facility] [address] [facility] [address] [place] [address] Otto Esparza MD [address] [facility] [address] [place] [address] Social History Tobacco Use Types Packs/Day Years [...] on filedocumented in this encounter Care Teams Manager Inventory Control Relationship Specialty Start Date End Date Amor Fernandez MD PCP - General Gastroenterology 04/14/23 10/31/23 Jonny Zhu MD [address] [place] [phone] PCP - Devoted 08/22/23 11/21/23 Jonny Zhu MD [address] [place] [phone] PCP - General Family Medicine 11/01/23 01/05/24 Jonny Zhu MD [address] [place] [phone] PCP - General Family Medicine 01/06/24 05/29/25 Unallocated, Bonnie Lama MD [address] [place] [address] PCP - General Family Medicine 05/30/25 Marilee Staples NP [address] [place] [phone] Nurse Practitioner Family Medicine 07/23/23 05/29/25 Marilee Staples NP [address] [place] [address] Nurse Practitioner Family Medicine 01/06/24 05/29/25 documented as of this encounter
--- OUTSIDE RECORDS SUMMARY | 2025-06-05 10:49 | XMS_ITS | Clinical Summary ---
Author Organization [facility] Address [address] [place] [id number] Care Team Providers Care Production Staff Worker Name Role Phone Unavailable Primary Care Provider [...] Care Team Description 04/20/2025 GI Preprocedure Call [facility] [place] [phone] Esau Del Toro, 04/18/2025 Telephone General Surgery [address] [address] Esau Del Toro, Care Coordination (Appeal for GPOEM denial ) 04/11/2025 Telephone General Surgery [address] [address] Esau Del Toro, Medication Preauthorization (PA for Gimoti) 04/10/2025 10:00 AM EDT Office Visit General Surgery [address] [address] Esau Del Toro, Diabetic gastroparesis (HCC) (Primary Dx) 04/10/2025 9:00 AM EDT Office Visit Adult Psychology [address] [address] Courtney Flower PSYD Gastroparesis (Primary Dx); Type 2 diabetes mellitus with other specified complication, unspecified whether intermediate insulin use (HCC) 04/10/2025 8:00 AM EDT Office Visit Gastroenterology [address] [address] Jessee Figueredo, Gastroparesis (Primary Dx) 04/10/2025 Telephone General Surgery [facility] [address] [place] [address] Esau Del Toro DO Care Coordination (Schedule procedure and follow up appt///) 04/10/2025 Travel 04/09/2025 Patient Msg Gastroenterology [address] [address] Javi Thakkar, Research Coordinator 04/05/2025 Telephone Gastroenterology [facility] [address] [place] [address] Jessee Figueredo DO Care Coordination (Gastroparesis clinic: [...] is lower risk 8 10/24/2024 Data from: https://www.neighborhoodatlas.medicine.[facility]/. Last address used for calculation [address] [facility] 10/24/2024 Sex and Gender Information Value [...] 04/22, 05/01/2024, Additional history exists Influenza Vaccine (#1) 2025 DTaP,Tdap,Td Vaccine (2 - Td or [...] DO CHRIST Final Result Performing Organization Address City/[facility] Co de Phone Number CHRIST * PT ED DIGESTIVE DISEASE (04/12/2025) 04/12/2025 Narrative CHRIST - 05/13/2025 Provider TRAV your patient RASHEL KINGSLEY has not started their Christ program, time has . Christ program: UPPER GI ENDOSCOPY (EGD) us Esau Duran Trav DO CHRIST Final Result Performing Organization Address [facility] Co de Phone Number [facility]RIST * CARNITINE FREE & TOTAL, PLASMA (04/10/2025 11:25 AM EDT) Free L-carnitine 39.0 20.0 - 53.0 umol/L 04/13/2025 9:38 AM EDT [facility] Total L-carnitine 49.3 26.4 - 66.0 umol/L 04/13/2025 9:38 AM EDT [facility] Esterified L-Carnitine 10.3 3.0 - 15.6 umol/L 04/13/2025 9:38 AM EDT [facility] Esterified Carnitine / Free Carnitine Ratio 0.3 0.1 - 0.7 04/13/2025 9:38 AM EDT [facility] Comment: NOTE: The determination [...] determined by the Pathology and Laboratory Medicine [place] at the [facility]. The U.S. Food and Drug Administration has not approved or cleared this test, however, FDA clearance or approval is not currently required for clinical use. Blood BLOOD SPECIMEN / Unknown Venipuncture / Unknown 04/10/2025 11:25 AM EDT 04/10/2025 11:28 AM EDT [facility] LABORATORY Final Result [facility] [address] [facility] [address] [place] [address], * (ABNORMAL) ORGANIC ACIDS UR, QUANT W/CONSULT (04/10/2025 11:25 AM EDT) Lactate, Urine 23.5 2.9 - 47.2 umol/mmo [facility] 04/13/2025 10:47 AM EDT [facility] Pyruvate, Urine 0.6 0.1 - 2.6 umol/mmo [facility] 04/13/2025 10:47 AM EDT [facility] 2-HydroxyButyrate, Urine 1.0 0.0 - 2.7 umol/mmo [facility] 04/13/2025 10:47 AM EDT [facility] Oxalic Acid, Urine 1.7 0.7 - 12.4 umol/mmo [facility] 04/13/2025 10:47 AM EDT [facility] 3-HydroxyButyrate, Urine <1.6 0.1 - 2.6 umol/mmo [facility] 04/13/2025 10:47 AM EDT [facility] 2OH-Isovalerate, Urine 0.1 0.0 - 0.1 umol/mmo [facility] 04/13/2025 10:47 AM EDT [facility] AcetoAcetate, Urine <0.9(H) 0.0 - 0.5 umol/mmo [facility] 04/13/2025 10:47 AM EDT [facility] 3-OH,2-MethylButyra te, Urine <0.6 0.0 - 1.3 umol/mmo [facility] 04/13/2025 10:47 AM EDT [facility] Malonate, Urine 0.0 0.0 - 0.1 umol/mmo [facility] 04/13/2025 10:47 AM EDT [facility] 3-HydroxyIsovalerat e, Urine 2.9 2.1 - 27.3 umol/mmo [facility] 04/13/2025 10:47 AM EDT [facility] MethylMalonate, Urine <0.4 0.0 - 0.6 umol/mmo [facility] 04/13/2025 10:47 AM EDT [facility] Benzoic Acid, Urine <12.2 0.0 - 14.6 umol/mmo [facility] 04/13/2025 10:47 AM EDT [facility] EthylMalonate, Urine 2.7 0.5 - 6.2 umol/mmo [facility] 04/13/2025 10:47 AM EDT [facility] Succinate, Urine 0.7 0.3 - 27.4 umol/mmo [facility] 04/13/2025 10:47 AM EDT [facility] MethylSuccinate, Urine 0.4 0.0 - 1.4 umol/mmo [facility] 04/13/2025 10:47 AM EDT [facility] Uracil, Urine <0.4 0.0 - 5.1 umol/mmo [facility] 04/13/2025 10:47 AM EDT [facility] Fumarate, Urine 1.9 0.3 - 2.6 umol/mmo [facility] 04/13/2025 10:47 AM EDT [facility] IsoButyrylGlycine, Ur <0.1 0.0 - 1.2 umol/mmo [facility] 04/13/2025 10:47 AM EDT [facility] Glutarate, Urine 0.1 0.0 - 1.4 umol/mmo [facility] 04/13/2025 10:47 AM EDT [facility] 3-MethylGlutarate, Urine 0.2 0.0 - 0.6 umol/mmo [facility] 04/13/2025 10:47 AM EDT [facility] ButyrylGlycine, Urine 0.0 0.0 - 0.7 umol/mmo [facility] 04/13/2025 10:47 AM T [facility] 2-MethylButyrylGlyc ine, Ur <0.1 0.0 - 0.4 umol/mmo [facility] 04/13/2025 10:47 AM [facility] 3MethylGlutaconic Acid, Urine 0.3 0.0 - 2.0 umol/mmo [facility] 04/13/2025 10:47 AM T [facility] Malate, Urine 0.8 0.0 - 1.1 umol/mmo [facility] 04/13/2025 10:47 AM [facility] Adipic Acid, Urine 1.3 0.3 - 9.2 umol/mmo [facility] 04/13/2025 10:47 AM [facility] 0-Pxn-Bniuprq, Urine 1.5 0.4 - 3.1 umol/mmo [facility] 04/13/2025 10:47 AM [facility] 3-MethylCrotonylGly cine,Urine <0.3 <0.3 umol/mmo [facility] 04/13/2025 10:47 AM [facility] 3-HydroxyGlutaric Acid, Urine 0.0 0.0 - 0.7 umol/mmo [facility] 04/13/2025 10:47 AM [facility] 2-HydroxyGlutaric Acid, Urine <0.4(L) 0.6 - 17.7 umol/mmo [facility] 04/13/2025 10:47 AM [facility] Alpha-KetoGlutarate , Urine 6.2 0.2 - 42.7 umol/mmo [facility] 04/13/2025 10:47 AM [facility] HexanoylGlycine, Urine <0.1 0.0 - 0.1 umol/mmo [facility] 04/13/2025 10:47 AM [facility] 4-HydroxyPhenylAcet ate, Urine 10.8 5.7 - 147.5 umol/mmo [facility] 04/13/2025 10:47 AM [facility] N-AcetylAspartic Acid, Urine 0.8 0.1 - 8.9 umol/mmo [facility] 04/13/2025 10:47 AM EDT [facility] Suberic Acid, Urine 0.9 0.0 - 7.4 umol/mmo [facility] 04/13/2025 10:47 AM EDT [facility] SuccinylAcetone, Urine <0.4 <0.4 umol/mmo [facility] 04/13/2025 10:47 AM EDT [facility] 2-OxoAdipic Acid, Urine <1.6 0.0 - 3.3 umol/mmo [facility] 04/13/2025 10:47 AM EDT [facility] Aconitate, Urine 19.3 8.5 - 109.6 umol/mmo [facility] 04/13/2025 10:47 AM EDT [facility] IsoCitric Acid, Urine 62.1 9.1 - 271.9 umol/mmo [facility] 04/13/2025 10:47 AM EDT [facility] MethylCitrate, Urine <1.1 1.0 - 13.9 umol/mmo [facility] 04/13/2025 10:47 AM T [facility] Sebacic Acid, Urine <3.4(H) 0.0 - 0.3 umol/mmo [facility] 04/13/2025 10:47 AM T [facility] 4-HydroxyPhenyl Lactate,Urine 20.8 1.3 - 23.0 umol/mmo [facility] 04/13/2025 10:47 AM T [facility] 4-HydroxyPhenyl Pyruvate,Urine 0.0 <=0.0 umol/mmo [facility] 04/13/2025 10:47 AM T [facility] N-AcetylTyrosine, Urine 0.3 0.0 - 1.2 umol/mmo [facility] 04/13/2025 10:47 AM T [facility] SuberylGlycine, Ur 0.0 <=0.0 umol/mmo [facility] 04/13/2025 10:47 AM T [facility] UOA Consultation 04/13/20 10:47 AM T [facility] Comment: This urine organic acid analysis [...] and its performance characteristics determined by the [facility]. It has not been cleared or approved by the US Food and Drug Administration. The FDA had determined that such clearance or approval is not necessary. UOA Review Reviewed by Forrest Gomez MD, Ph.D ([id number]) 04/13/2025 10:47 AM EDT [facility] Creatinine, Ur (Special Chem) 275.7 46.8 - 314.5 mg/dL 04/13/2025 10:47 AM EDT [facility] Urine URINE SPECIMEN / Unknown Non Blood / Unknown 04/10/2025 11:25 AM EDT 04/10/2025 11:28 AM EDT Jessee Figueredo DO LABORATORY Final Result [facility] [address] [place] [address], * (ABNORMAL) AMINO ACIDS, PLASMA W/ CONSULTATION (04/10/2025 11:25 AM EDT) Taurine 58 54 - 210 umol/L 04/13/2025 4:21 PM EDT [facility] Aspartic Acid 3 1 - 25 umol/L 04/13/2025 4:21 PM EDT [facility] Hydroxyproline 04/13/2025 4:21 PM EDT [facility] Comment:Unable to assay. Miranda lytical difficulty Threonine 109 60 - 225 umol/L 04/13/2025 4:21 PM EDT [facility] Serine 41(L) 58 - 181 umol/L 04/13/2025 4:21 PM EDT [facility] Asparagine 31(L) 35 - 74 umol/L 04/13/2025 4:21 PM EDT [facility] Glutamic Acid 82 10 - 131 umol/L 04/13/2025 4:21 PM EDT [facility] Glutamine 478 205 - 756 umol/L 04/13/2025 4:21 PM EDT [facility] Sarcosine <2(H) <=0 umol/L 04/13/2025 4:21 PM EDT [facility] Alpha-Aminoadipic Acid <2 0 - 6 umol/L 04/13/2025 4:21 PM EDT [facility] Proline 237 97 - 329 umol/L 04/13/2025 4:21 PM EDT [facility] Glycine 125(L) 151 - 490 umol/L 04/13/2025 4:21 PM EDT [facility] Alanine 412 177 - 583 umol/L 04/13/2025 4:21 PM EDT [facility] Citrulline 38 12 - 55 umol/L 04/13/2025 4:21 PM EDT [facility] Valine 227 119 - 336 umol/L 04/13/2025 4:21 PM EDT [facility] Methionine 19 10 - 42 umol/L 04/13/2025 4:21 PM EDT [facility] Alloisoleucine <2 0 - 2 umol/L 04/13/2025 4:21 PM EDT [facility] Cystine 50 5 - 82 umol/L 04/13/2025 4:21 PM EDT [facility] Isoleucine 62 30 - 108 umol/L 04/13/2025 4:21 PM EDT [facility] Leucine 109 72 - 201 umol/L 04/13/2025 4:21 PM EDT [facility] Tyrosine 68 34 - 112 umol/L 04/13/2025 4:21 PM EDT [facility] Phenylalanine 63 35 - 85 umol/L 04/13/2025 4:21 PM EDT [facility] Hydroxylysine <2(H) <=0 umol/L 04/13/2025 4:21 PM EDT [facility] Ornithine 43(L) 48 - 195 umol/L 04/13/2025 4:21 PM EDT [facility] Lysine 143 116 - 296 umol/L 04/13/2025 4:21 PM EDT [facility] Histidine 53(L) 72 - 124 umol/L 04/13/2025 4:21 PM EDT [facility] Arginine 73 15 - 128 umol/L 04/13/2025 4:21 PM EDT [facility] Amino Acids Review, Plasma Reviewed by Forrest Gomez MD, Ph.D ([id number]) 04/13/2025 4:21 PM EDT [facility] Amino Acid Consultation, Plasma 04/13/2025 4:21 PM EDT [facility] Comment: This plasma amino acid analysis is mainly notable for low levels of serine and glycine. Low levels of plasma serine and glycine is potentially related to the patient's clinical history of diabetes. Reference intervals from Jovani E, Pat MG, Ocasio MANDEEP, and Anderson DK: Biochemical Genetics: A Laboratory Manual, Copyright 1989 by [employer] Reference intervals not established for some amino acids. This test was developed and its performance characteristics determined by the [facility] Department of Pathology and Laboratory Medicine. It has not been cleared or approved by the FDA. The [facility] Department of Pathology and Laboratory Medicine is regulated under CLIA as qualified to perform high- complexity testing. This test is used for clinical purposes. It should not be regarded as investigational or for research. Blood BLOOD SPECIMEN / Unknown Venipuncture / Unknown 04/10/2025 11:25 AM EDT 04/10/2025 11:28 AM EDT us Jessee Figueredo DO LABORATORY Final Result [facility] [address] [facility] [address] [address], [place] * CREATININE (SPECIAL CHEM) (04/10/2025 11:25 AM EDT) Urine URINE SPECIMEN / Unknown Non Blood / Unknown 04/10/2025 11:25 AM EDT 04/10/2025 11:28 AM EDT [facility] DO LABORATORY Final Result [facility] [address] [facility] [address] [place] [address], [place] * VOLTAGE-GATED POTASSIUM SZYMANSKI AB (04/10/2025 11:25 AM EDT) VOLTAGE-GATED POTASSIUM CHANNEL AB, SER 0 0 - 31 pmol/L 04/12/2025 1:52 PM EDT [facility] Comment: INTERPRETIVE INFORMATION: Voltage-Gated Potassium Channel (VGKC) [...] developed and its performance characteristics determined by [employer]. It has not been cleared or approved by the US Food and Drug Administration. This test was performed in a CLIA certified laboratory and is intended for clinical purposes. Performed By: [facility] [address] [place] [id number] Asset Protection Lead: Warren Simmons MD, PhD CLIA Number: [id number] Blood BLOOD SPECIMEN / Unknown Venipuncture / Unknown 04/10/2025 11:25 AM EDT 04/10/2025 11:28 AM EDT [facility] LABORATORY Final Result Performing Organization Address [facility] Co de Phone Number [facility] [address] [place] [address] * ACETYLCHOLINE REC BINDING AB (04/10/2025 11:25 AM EDT) Pathologist [facility] Acetylcholine, Binding, Qual Negative Negative 04/11/2025 4:13 PM EDT [facility] Comment:Anti-acetylcholine r eceptor binding antibody test is used as an aid in diagnosis of myasthenia gravis. A negative result cannot exclude myasthenia gravis. Clinical correlation is required. Acetylcholine Receptor Binding <0.02 <0.21 nmol/L 04/11/2025 4:13 PM EDT [facility] Blood BLOOD SPECIMEN / Unknown Venipuncture / Unknown 04/10/2025 11:25 AM EDT 04/10/2025 11:28 AM EDT [facility] LABORATORY Final Result Performing Organization Address [facility] de Phone Number [facility] [address] * VOLTAGE GATED CA IGG (04/10/2025 11:25 AM EDT) Pathologist [facility] P/Q-Type Calcium Channel Antibody 0.0 0.0 - 24.5 pmol/L 04/12/2025 7:03 PM EDT [facility] Comment: INTERPRETIVE INFORMATION: P/Q-Type Calcium Channel Antibody 0.0 to 24.5 pmol/L ............. Negative 24.6 to 45.6 pmol/L ............ Indeterminate 45.7 pmol/L or greater.......... Positive This test was developed and its performance characteristics determined by [employer]. It has not been cleared or approved by the US Food and Drug Administration. This test was performed in a CLIA certified laboratory and is intended for clinical purposes. Performed By: [facility] [address] [place] [address] Asset Protection Lead: Warren Simmons MD, PhD CLIA Number: [id number] Blood BLOOD SPECIMEN / Unknown Venipuncture / Unknown 04/10/2025 11:25 AM EDT 04/10/2025 11:28 AM EDT [facility] LABORATORY Final Result Performing Organization Address [facility] Co de Phone Number [facility] [address] [place] [address] * LACTATE DEHYDROGENASE (04/10/2025 11:25 AM EDT) Pathologist [facility] LD 159 135 - 225 U/L 04/10/2025 9:52 PM EDT [facility] Blood BLOOD SPECIMEN / Unknown Venipuncture / Unknown 04/10/2025 11:25 AM EDT 04/10/2025 11:28 AM EDT [facility] LABORATORY Final Result Performing Organization Address [facility] de Phone Number [facility] [address] [place] [address] * GLUTAMIC AC DECARBOXYLASE AB (04/10/2025 11:25 AM EDT) Pathologist [facility] Glutamic Acid Decarboxylas Ab Qualitative Negative Negative 04/13/2025 2:30 PM EDT [facility] Glutamic Acid Decarboxylase Ab <5.0 <=5.0 IU/mL 04/13/2025 2:30 PM EDT [facility] Comment:Anti-glutamic acid d ecarboxylase [...] 11:25 AM EDT 04/10/2025 11:28 AM EDT [facility] LABORATORY Final Result Performing Organization Address City/[facility]/ZIP Co de Phone Number [facility] [address] [place] [id number], [place] * (ABNORMAL) SEDIMENTATION RATE, WESTERGREN (04/10/2025 11:25 AM EDT) Sed Rate, Westergren 66(H) 0 - 15 mm/hr 04/10/2025 6:12 PM EDT [facility] Blood BLOOD SPECIMEN / Unknown Venipuncture / Unknown 04/10/2025 11:25 AM EDT 04/10/2025 11:28 AM EDT [facility] LABORATORY Final Result Performing Organization Address [facility] de Phone Number [facility] [address] [place] [id number], [place] * PYRUVATE+LACTATE BL (04/10/2025 11:25 AM EDT) Lactate 2.1 0.5 - 2.2 mmol/L 04/11/2025 10:31 PM EDT [facility] Comment:This test was develo ped, and its performance characteristics determined by the [facility] Department of Pathology and Laboratory Medicine. It has not been cleared or approved by the FDA. The [facility] Department of Pathology and Laboratory Medicine is regulated under CLIA as qualified to perform high- complexity testing. This test is used for clinical purposes. It should not be regarded as investigational or for research. Pyruvic Acid 0.05 0.03 - 0.10 mmol/L 04/11/2025 10:31 PM EDT [facility] Comment:This test was develo ped, and its performance characteristics determined by the [facility] Department of Pathology and Laboratory Medicine. It has not been cleared or approved by the FDA. The [facility] Department of Pathology and Laboratory Medicine is regulated under CLIA as qualified to perform high- complexity testing. This test is used for clinical purposes. It should not be regarded as investigational or for research. Blood BLOOD SPECIMEN / Unknown Venipuncture / Unknown 04/10/2025 11:25 AM EDT 04/10/2025 11:28 AM EDT [facility] LABORATORY Final Result Performing Organization Address [facility] de Phone Number [facility] [address] [place], [place] [id number], [place] * IMMUNOGLOBULIN M (04/10/2025 11:25 AM EDT) IgM 110 40 - 230 mg/dL 04/10/2025 8:58 PM EDT [facility] Blood BLOOD SPECIMEN / Unknown Venipuncture / Unknown 04/10/2025 11:25 AM EDT 04/10/2025 11:28 AM EDT [facility] LABORATORY Final Result Performing Organization Address [facility] Co de Phone Number [facility] [address] [place] [phone], [place] * (ABNORMAL) IMMUNOGLOBULIN G (04/10/2025 11:25 AM EDT) IgG 3,158(H) 700 - 1,600 mg/dL 04/10/2025 8:58 PM EDT [facility] Blood BLOOD SPECIMEN / Unknown Venipuncture / Unknown 04/10/2025 11:25 AM EDT 04/10/2025 11:28 AM EDT [facility] LABORATORY Final Result Performing Organization Address City/[facility] de Phone Number [facility] [address] [place], [place] [id number], [place] * (ABNORMAL) IMMUNOGLOBULIN A (04/10/2025 11:25 AM EDT) IgA 608(H) 70 - 400 mg/dL 04/10/2025 8:58 PM EDT [facility] Blood BLOOD SPECIMEN / Unknown Venipuncture / Unknown 04/10/2025 11:25 AM EDT 04/10/2025 11:28 AM EDT [facility] LABORATORY Final Result Performing Organization Address [facility] Co de Phone Number [facility] [address] [id number], [place] * (ABNORMAL) HEMOGLOBIN A1C (04/10/2025 11:25 AM EDT) Hemoglobin A1C 11.0(H) 4.3 - 5.6 % 04/10/2025 9:27 PM EDT [facility] Comment:[place] Diabetes As sociation guidelines indicate that patients with HgbA1c in the range 5.7-6.4% are at increased risk for development of diabetes, and intervention by lifestyle modification may be beneficial. HgbA1c greater or equal to 6.5% is considered diagnostic of diabetes. Estimated Average Glucose 269 mg/dL 04/10/2025 9:27 PM EDT [facility] Comment:eAG: (Estimated aver age glucose) is a calculated value from HgbA1c and is guest relations representative of the average blood glucose level in the last 2-3 month period. Blood BLOOD SPECIMEN / Unknown Venipuncture / Unknown 04/10/2025 11:25 AM EDT 04/10/2025 11:28 AM EDT [facility] LABORATORY Final Result Performing Organization Address City/[facility]/ZIP Co de Phone Number [facility] [address] [address], [place] * (ABNORMAL) CREATINE KINASE/CK (04/10/2025 11:25 AM EDT) CK 41(L) 51 - 298 U/L 04/10/2025 1:02 PM EDT [facility] Blood BLOOD SPECIMEN / Unknown Venipuncture / Unknown 04/10/2025 11:25 AM EDT 04/10/2025 11:28 AM EDT Jessee S Figueredo DO LABORATORY Final Result [facility] [place] [address], * (ABNORMAL) C-REACTIVE PROTEIN (04/10/2025 11:25 AM EDT) CRP 2.7(H) <0.9 mg/dL 04/10/2025 1:02 PM EDT [facility] Blood BLOOD SPECIMEN / Unknown Venipuncture / Unknown 04/10/2025 11:25 AM EDT 04/10/2025 11:28 AM EDT Jessee Galeana Figueredo LABORATORY Final Result Performing Organization Address City/[facility]/ZIP Co de Phone Number [facility] [place] [address], from Last 3 Months Insurance [employer] MEDICARE
--- OUTSIDE RECORDS SUMMARY | 2025-06-05 10:49 | XMS_ITS | Encounter Summary ---
Author Organization Sutus s tem Address [id number] [address] [place] [address] Care Team Providers Care Peace Officer Name Role Phone Brendalauren Jessee Duran DO Primary Care Provider [phone] Encounter Details Date Type Department Care Team (Late st Contact Info) Description 03/11/2021 Telephone [facility] [address] [place] [address] Ghulam Brooke, DPM [address] [facility] [address] [place] [address] Social History Tobacco Use Types Packs/Day Years [...] Never 02/07/2021 How often do you attend episcopalian or oriental orthodox serv ices? Never 02/07/2021 Do you belong to any clubs o r organizations such as episcopalian groups, unions, fraternal or athletic groups, or [...] Answer Date Recorded Total Score 0 02/07/2021 [facility] [...] Office Visit [facility] [address] [place] [address] [place] [address] Jessee Molina, [address] [place] [address], [facility] [address], [place] [address] documented as of this encounter Goals Goal Patient Goal Type Associated Problems Recent Progress Patient-Stated? Author <enter goal here> General Yes Yulia Ocasio, RN Note: Evaluation of progress towards goal: dc longterm facility documented as of this encounter Visit Diagnoses Not on filedocumented in this encounter Additional Health Concerns Infection Onset Date Last Indicated Resolved Time COVID-19 Rule-Out 08/29/2021 08/29/2021 08/30/2021 11:54 PM EDT Assessment Noted Time PHQ-9 Depression Total Score: 0 02/08/20 21 1:19 PM EDT documented as of this encounter Care Teams Peace Officer Relationship Specialty Start Date End Date Jessee Molina DO [address] [facility], [facility], [address] [place] [id number] PCP - General Family Medicine 04/26/25 documented as of this encounter
--- OUTSIDE RECORDS SUMMARY | 2025-06-05 10:49 | XMS_ITS | Clinical Summary ---
Author Organization [facility] Address [address] [place] [address] Care Team Providers Care Risk Intern Name Role Phone Unallocated, Noms Provider Primary Care Provi dora Allergies Active Allergy Reactions Criticality Noted Date [...] hyperglycemia, with long-term current use of insulin ([facility]) Take 1 tablet (1,000 mg) by mouth [...] hyperglycemia, with long-term current use of insulin ([facility]) Take 1 tablet (40 mg) by mouth in the evening 100 tablet 4 Active DULoxetine (Cymbalta) [address] capsuleIndication s:Type 2 diabetes mellitus with diabetic neuropathy, with long-term current use of insulin ([facility]) Take 1 capsule (30 mg) by mouth [...] that we could order from [facility] in [place] as they can bill DME, he then [...] do this or that. He saw Ishmael Santillan in 10/2023, she felt that he was [...] 01/06/2024 Anxiety, generalized 01/06/2024 Encounter for subsequent [facility] wellness visit (AWV) in Medicare patient 01/06/2024 [...] duloxetine as well as elavil Has established exam proctor Assessment & Plan (11/02/2023 3:11 PM EST): [...] (10/27/2023): Added automatically from request for surgery [id number] Hyperlipidemia 03/21/2021 Assessment & Plan (11/02/2023 3:09 PM EST): Cont statin Check labs Cellulitis 01/24/2014 Resolved Problems Problem Noted Date Diagnosed Date Resolved Date Open wound of toe 10/27/2023 01/06/2024 Charcot's joint of foot, left 03/19/2021 01/06/2024 Overview (10/27/2023): Added automatically from request for surgery [id number] Wound, open, foot with compl ication, left, initial encounter 02/24/2021 01/06/2024 Sepsis 02/07/2021 01/06/2024 Chronic osteomyelitis of lef t foot with draining sinus 02/07/2021 01/06/2024 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, with necrosis of bone 02/07/2021 01/06/2024 Open wound of foot excluding toes 09/07/2016 01/06/2024 Closed multiple fractures of hand bones 05/13/2012 01/06/2024 Immunizations Immunization Administration Dates Next Due Tdap [...] Never 01/06/2024 How often do you attend christianity or jain serv ices? Never 01/06/2024 Do you belong to any clubs o r organizations such as christianity groups, unions, fraternal or athletic groups, or [...] Questionnaire-2 Score 0 03/13/2024 [facility] Questionnaire Answer Date [...] place to sleep or slept in a fci (including now)? No 01/06/2024 Sex and Gender [...] FIT 1965 FOBT 1965 Sigmoidoscopy 1965 Diabetes: Retinopathy Screening 11/09/2024 3, 02/16/2023 Medicare Annual Wellness (AWV) 01/06/2025 01/06/2024 , 01/06/2024 Diabetes: Urine Protein Screening 05/01/2025 05/01/2024, 05/01/2024, 05/01/2024, Additional history exists Influenza Vaccine (#1) 2025 Diabetes: Hemoglobin A1C 08/02/2025 025, 04/10/2025, 05/01/2024, Additional history exists Procedures Procedure Name Priority Date/Time Associated Diagnosis [...] - 30.0 mg/g creat [facility] Comment:[facility]FORMED AT [facility] [address],[place] [address] 05/01/2024 11:2 9 AM EDT 05/01/2024 11:30 AM EDT us Marilee Staples [facility] URINE ORDERABLES Final Resu lt [facility] from Last 3 Months or Most Recently Relevant to Health Maintenance Insurance [employer] MEDICARE ADVANTAGE Care Teams Risk Intern Relationship Specialty Start Date End Date Unallocated, Noms MD Kelby [address] [place], [place] [id number] PCP - General Family Medicine 05/30/25
--- OUTSIDE RECORDS SUMMARY | 2025-06-05 10:49 | XMS_ITS | Clinical Summary ---
Author Organization [facility] tem Address [facility] [id number] [address] [place] [address] Care Team Providers Care Dye Range Feeder Name Role Phone BrendaJessee aguilar Roger SCHWARZ Primary Care Provider [phone] Allergies Active Allergy Reactions Criticality Noted Date [...] ulcer, with long-term current use of insulin ([facility]) Sliding scale with pre meal blood sugars three times per day ( max dose 36 units/day) 15 mL 1 025 Active insulin glargine (LANTUS SOLOSTAR U-100 INSULIN) 100 unit/mL (3 mL) insulin penIndications: Type 2 diabetes mellitus with foot ulcer, with long-term current use of insulin ([facility]) Inject 30 Units under the skin in the morning and 30 Units before bedtime. 18 mL 1 025 Active blood-glucose meter kitIndications: Type 2 diabetes mellitus with foot ulcer, with long-term current use of insulin ([facility]) Use as instructed 1 each Active blood sugar diagnostic stripIndication s:Type 2 diabetes mellitus with foot ulcer, with long-term current use of insulin ([facility]) 1 strip by other route 4 (four) times a day before meals and nightly. 200 strip 3 025 Active TRUE METRIX GLUCOSE TEST STRIP stripIndication s:Type 2 diabetes mellitus with foot ulcer, with long-term current use of insulin ([facility]) 1 strip by other route 4 (four) times a day before meals and nightly. 200 strip 5 025 2024 Discontinued(R eorder) insulin glargine (LANTUS) 100 unit/mL injectionIndica tions:Type 2 diabetes mellitus with foot ulcer, with long-term current use of insulin ([facility] Inject 0.3 mL (30 Units total) under the skin nightly. 10 mL 1 025 2024 Discontinued pantoprazole (PROTONIX) 40 mg EC tabletIndicatio ns:Gastroesopha geal reflux disease, unspecified whether esophagitis present Take 1 tablet (40 mg total) by mouth in the morning. 90 tablet 025 2024 Discontinued(R eorder) lisinopriL (PRINIVIL,ZESTR IL) 10 mg tabletIndicatio ns:hypertension Take 1 tablet (10 mg total) by mouth daily with breakfast for 90 days Indications: high blood pressure. 90 tablet 025 2024 Discontinued(R eorder) insulin lispro (ADMELOG SOLOSTAR U-100 INSULIN) 100 unit/mL insulin penIndications: Type 2 diabetes mellitus with foot ulcer, with long-term current use of insulin ([facility] 70-150 0 units 151-174 2 units 175-199 4 units 200-224 6 units 225-249 8 units 250-274 10 units 275-299 12 units 300-350 14 units >350 16 units and call provider 15 mL 025 2024 Discontinued hydroCHLOROthia zide (HYDRODIURIL) 12.5 mg [...] ulcer, with long-term current use of insulin ([facility] 1 Pen Needle by miscellaneous route in the morning and 1 Pen Needle at noon and 1 Pen Needle in the evening and 1 Pen Needle before bedtime. 100 each 3 025 2024 Discontinued TRUE METRIX GLUCOSE TEST STRIP stripIndication s:Type 2 diabetes mellitus with foot ulcer, with long-term current use of insulin ([facility]) 1 strip by other route 4 (four) [...] (08/07/2021): Added automatically from request for surgery [id number] Osteomyelitis of left foot 04/17/2021 Diabetes mellitus [...] (03/19/2021): Added automatically from request for surgery [id number] Wound, open, foot with compl ication, left, initial encounter 02/24/2021 Sepsis 02/07/2021 Diabetic ulcer of right midf oot associated with type 2 diabetes mellitus, with muscle involvement without evidence of necrosis 02/07/2021 Chronic osteomyelitis of left foot with draining sinus 02/07/2021 Encounters Date Type Department Care Team Description 05/22/2025 Telephone [facility] [address] [place] [address] [place] [address] Danielle Masters CNA Results 05/16/2025 Travel 05/16/2025 Orders Only [facility] [address] [place] [address] [place] [address] Jessee Molina, DO Type 2 diabetes mellitus with foot ulcer, with long-term current use of insulin ([facility] (Primary Dx) 05/13/2025 Refill [facility] [address] [place] [address] [place] [address] Jessee Molina, DO Type 2 diabetes mellitus with foot ulcer, with long-term current use of insulin ([facility]) 05/10/2025 9:30 AM EDT Clinical Support [facility] [address] [place] [address] [place] [address] Jessee Molina, DO Type 2 diabetes mellitus with foot ulcer, with long-term current use of insulin (CMS-HCC); Benign essential HTN; Gastroesophageal reflux disease, unspecified whether esophagitis present; Chronic midline low back pain without sciatica; Encounter for screening for malignant neoplasm of prostate; Fatigue, unspecified type 05/10/2025 Travel 05/02/2025 2:27 PM EDT - 05/02/2025 11:59 PM EDT Hospital Encounter [facility] - Radiology [address] [place] [address] Chronic midline low back pain without sciatica Discharge Disposition: Home 05/02/2025 Travel 04/26/2025 2:00 PM EDT Office Visit [facility] [address] [place] [address] Jessee Molina DO Benign essential HTN (Primary Dx); Type 2 diabetes mellitus with foot ulcer, with long-term current use of insulin (CMS-HCC); Chronic midline low back pain without sciatica; Fatty liver disease, nonalcoholic; Visit for wound check; Hyperglycemia; Gastroesophageal reflux disease, unspecified whether esophagitis present 04/24/2025 10:30 AM EDT Office Visit [facility] [address] [place] [address] Iqra Calderón, SCRUBBER SYSTEM ATTENDANT-SCARFING MACHINE OPERATOR Diabetic ulcer of right midfoot associated with type 2 diabetes mellitus, with muscle involvement without evidence of necrosis ([facility]) (Primary Dx); 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) 04/24/2025 Travel 04/11/2025 10:40 AM EDT Office Visit [facility] [address] [place] [address] Iqra Calderón, SCRUBBER SYSTEM ATTENDANT-SCARFING MACHINE OPERATOR Diabetic ulcer of right midfoot associated with type 2 diabetes mellitus, with muscle involvement without evidence of necrosis (CMS-HCC) (Primary Dx); History of transmetatarsal amputation of right foot (CMS-HCC); 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); Wound, open, foot with complication, left, initial encounter; Unstable ankle, right 04/11/2025 Travel 03/28/2025 10:40 AM EDT Office Visit [facility] [address] [facility] [place] [address] Iqra Calderón, SCRUBBER SYSTEM ATTENDANT-SCARFING MACHINE OPERATOR Diabetic ulcer of right midfoot associated with type 2 diabetes mellitus, with muscle involvement without evidence of necrosis (CMS-HCC) (Primary Dx); History of transmetatarsal amputation of right foot (CMS-HCC); Visit for wound check 03/28/2025 Travel from Last 3 Months Immunizations No [...] How often do you attend advent or advent serv ices? Never 02/07/2021 Do you belong [...] Answer Date Recorded Total Score 3 05/10/2025 [facility] - Occup[facility] [...] Recorded Do you need help finding a [facility] career center and/or a training program? [...] Description 08/10/2025 10:00 AM EDT Office Visit [facility] [address] [place] [address] [place] [address] Jessee Molina DO [address] [place] [address], [address], [place] [address] Health Maintenance Due Date Last [...] Note: Evaluation of progress towards goal: dc shelter facility Medical Devices Implanted Type Area Laborer Livestock Device Identifier Shelf Expiration Date Model / Serial / Lot Cmnt Bn Bio 40gm Rpl [id number] - [id number] Implanted:Qty : 2 on 02/07/2021 by Ghulam Brooke DPM at [facility] Cement N/A: Foot [employer] 11/21/2024 [id number] / / [id number] Lens Iol Ultrasert 18.5d - [id number] - [id number] Implanted:Qty : 1 on 12/28/2019 by Debra Trejo MD at [facility] Lens Right: Eye [employer] 07/22/2022 [id number] 18.5 / [id number] / NA Explanted Type Area Laborer Livestock Device Identifier Shelf Expiration Date Model / Serial / Lot Pin Fx 9in in Stnm Ft 2 - [id number] Explanted:Qty: 4 on 04/18/[address] [facility] Pin [employer] [id number] / / Description: wilfrid dewitt from tray (smooth wilfrid pins double ended) Procedures Procedure Name Priority Date/Time Associated Diagnosis Comments [facility] GENERIC ORDER #1 Routine 05/16/2025 11:06 AM EDT Fatigue, unspecified type MAGNESIUM Routine 05/16/2025 11:06 AM EDT Fatigue, [...] ulcer, with long-term current use of insulin ([facility]) CBC WITH AUTO DIFFERENTIAL Routine 05/02/2025 2:25 [...] of transmetatarsal amputation of right foot (CMS-HCC) from Last 3 Months Results * (ABNORMAL) Intacct Generic Order (05/16/2025 11:06 AM EDT) TEST RESULT SEE NOTE(A) 05/22/2025 4:34 AM EDT [facility] Comment: Test name Result Flag Units RefIntvl Testosterone, Total by Onshore Diver 234.3 L ng/dL 300.0-890.0 This test was developed and its performance characteristics determined by [facility]. It has not been cleared or approved by the [place] Food and Drug Administration. This test was performed in a CLIA certified laboratory and is intended for clinical purposes. Testosterone, Free by Dialysis 30.1 L pg/mL 47.0-244.0 INTERPRETIVE INFORMATION: Testosterone, Free by Dialysis This laboratory reference method for the direct measurement of free testosterone is not recommended when low testosterone concentrations, such as those found in children and cisgender females, are expected. For these individuals, the preferred test is Testosterone, Free (Adult Females, Children, or Individuals on Testosterone-Suppressing Hormone Therapy) (Intacct test code [id number]). For individuals on testosterone hormone therapy, refer to cisgender male reference intervals. No reference intervals have been established for males younger than 18 years or for cisgender females. For a complete set of all established reference intervals, refer to [employer]/Tests/Pub/[id number]. This test was developed and its performance characteristics determined by [facility]. It has not been cleared or approved by the [place] Food and Drug Administration. This test was performed in a CLIA certified laboratory and is intended for clinical purposes. Performed By: [facility] [address] [id number] Register Of Wills: Warren Simmons MD, PhD CLIA Number: [id number] Blood Venous blood / Unknown Venipuncture / Unknown 05/16/2025 11:06 AM EDT 05/16/2025 11:06 AM EDT us Not In System Ref Prov LAB BLOOD ORDERABLES Veronica l Result [facility] [address] [place] [address], * Prostatic specific antigen screen (05/16/2025 11:06 AM EDT) PROSTATIC SPEC ANT 0.86 0.00 - 4.00 ng/mL 05/16/2025 1:51 PM EDT [facility] Comment: The method used for this test is Metago DXI chemiluminescent immunoassay. Values obtained by different assay methods cannot be used interchangeably. Blood Venous blood / Unknown Venipuncture / Unknown 05/16/2025 11:06 AM EDT 05/16/2025 11:06 AM EDT Jessee Molina LAB BLOOD ORDERABLES Final Re sult Performing Organization Address City/[facility]/ZIP Co de Phone Number [facility] [address] [place] [address], * Vitamin D 25 hydroxy (05/16/2025 11:06 AM EDT) VITAMIN D 25 HYD TOT 84.2 30.0 - 100.0 ng/mL 05/16/2025 2:06 PM EDT [facility] Blood Venous blood / Unknown Venipuncture / Unknown 05/16/2025 11:06 AM EDT 05/16/2025 11:06 AM EDT Narrative [facility] - 05/16/2025 2:06 PM EDT Vitamin D status 25 [place] Vitamin D Deficiency <20 ng/mL Insufficiency 20-29 ng/mL Sufficiency 30-100 ng/mL Toxicity >100 ng/mL NOTE: A pediatric reference range has not been established by the sustainability manager of this kit. The [place] [employer] recommends a Vitamin D level of = or >20ng/mL in infants and children. Jessee Molina LAB BLOOD ORDERABLES Final Re sult Performing Organization Address City/[facility]/ZIP Co de Phone Number [facility] [address] [place] [address], * Magnesium (05/16/2025 11:06 AM EDT) MAGNESIUM 2.0 1.8 - 2.6 mg/dL 05/16/2025 1:53 PM EDT [facility] Blood Venous blood / Unknown Venipuncture / Unknown 05/16/2025 11:06 AM EDT 05/16/2025 11:06 AM EDT Jessee Molina Rethink LAB BLOOD ORDERABLES Final Re sult Performing Organization Address City/[facility]/ZIP Co de Phone Number [facility] [address] [place] [address], [place] [phone] * (ABNORMAL) Vitamin B12 (05/16/2025 11:06 AM EDT) VITAMIN B12 1,009(H) 180 - 914 pg/mL 05/16/2025 2:05 PM EDT [facility] Blood Venous blood / Unknown Venipuncture / Unknown 05/16/2025 11:06 AM EDT 05/16/2025 11:06 AM EDT Jessee Molina Rethink LAB BLOOD ORDERABLES Final Re sult Performing Organization Address City/[facility]/ZIP Co de Phone Number [facility] [address] [place] [address], [place] [phone] * X-ray spine lumbar complete including flexion [...] on 05/04/2025 3:25 PM Jessee Molina DO [facility] ORDERA BLES Final Result * (ABNORMAL) CBC auto differential (05/02/2025 2:25 PM EDT) WBC 8.7 4 - 11 x10E9/L 05/02/2025 6:09 PM EDT [facility] RBC Count 5.14 4.1 - 5.7 X10E12/L 05/02/2025 6:09 PM EDT [facility] Hemoglobin 14.1 13 - 17 g/dL 05/02/2025 6:09 PM EDT [facility] Hematocrit 42.3 39 - 50 % 05/02/2025 6:09 PM EDT [facility] MCV 82 80 - 100 fL 05/02[facility]2025 6[facility] MCH 27.5 27 - 34 pg 05/02/2025 6:09 PM EDT [facility] MCHC 33.4 32 - 36 g/dL 05/02/2025 6:09 PM [facility] RDW 15.2(H) 11.5 - 15 % 05/02/2025 6:09 PM EDT [facility] Platelet Count 298 150 - 450 X10E9/L 05/02/2025 6:09 PM EDT [facility] MPV 9.5 7 - 12 fL 05/02/2025 6:09 PM EDT [facility] Neutrophils % 63.5 % 05/02/2025 6:09 PM [facility] Lymphocytes % 22.1 % 05/02/2025 6:09 PM EDT [facility] Monocytes % 10.6 % 05/02/2025 6:09 PM [facility] Eosinophils % 2.5 % 05/02/2025 6:09 PM [facility] Basophils % 1.3 % 05/02/2025 6:09 PM [facility] Neutrophils Absolute (A) 5.5 1.5 - 6.6 10*3/uL 05/02/2025 6:09 [facility] Lymphocytes Absolute 1.9 1.0 - 3.5 10*3/uL 05/02/2025 6:09 PM [facility] Monocytes Absolute 0.9 0.0 - 0.9 10*3/uL 05/02/2025 6:[facility] Eosinophils Absolute 0.2 0.0 - 0.4 10*3/uL 05/02/2025 6:09 PM [facility] Basophils Absolute 0.1 0.0 - 0.2 10*3/uL 05/02/2025 6:09 [facility] Differential Type AUTOMATED DIFFERENTIAL 05/02/2025 6:09 PM [facility] Blood Venous blood / Unknown Venipuncture / Unknown 05/02/2025 2:25 PM EDT 05/02/2025 2:25 PM EDT Jessee Molina DO LAB BLOOD ORDERABLES Final Re sult Performing Organization Address City/[facility]/ZIP Co de Phone Number [facility] [address] [place] [address], [place] [phone] * (ABNORMAL) Hemoglobin A1c (05/02/2025 2:25 PM EDT) HEMOGLOBIN A1C 11.5(H) 4.4 - 5.6 % 05/02/2025 7:54 PM EDT [facility] Comment: ADA Guidelines Result HgbA1c Normal : less than 5.7 % Prediabetes : 5.7 % to 6.4 % Diabetes : > 6.4 % Use with caution in patients with abnormal hemoglobin variants as the half-life of red blood cells and in vivo glycation rates are affected. EST. AVERAGE GLUCOSE 283 mg/dL 05/02/2025 7:54 PM EDT [facility] Blood Venous blood / Unknown Venipuncture / Unknown 05/02/2025 2:25 PM EDT 05/02/2025 2:25 PM EDT Jessee Molina DO LAB BLOOD ORDERABLES Final Re sult Performing Organization Address City/[facility]/ZIP Co de Phone Number [facility] [address] [place] [address], [place] [phone] * (ABNORMAL) Comprehensive metabolic panel (05/02/2025 2:25 PM EDT) SODIUM 132(L) 134 - 146 mmol/L 05/02/2025 6:19 PM EDT [facility] POTASSIUM 4.1 3.5 - 5.0 mmol/L 05/02/2025 6:19 PM EDT [facility] CHLORIDE 100 98 - 109 mmol/L 05/02/2025 6:19 PM [facility] CARBON DIOXIDE 22 22 - 32 mmol/L 05/02/2025 6:19 PM [facility] ANION GAP 10 5 - 15 mmol/L 05/02/2025 6:19 PM [facility] BLOOD UREA NITROGEN 28(H) 5 - 23 mg/dL 05/02/2025 6:19 PM [facility] CREATININE 1.61(H) 0.60 - 1.30 mg/dL 05/02/2025 6:19 PM [facility] Comment:METHOD TRACEABLE TO [facility] STANDARD GLUCOSE 323(H) 65 - 99 mg/dL 05/02/2025 6:19 PM [facility] CALCIUM 9.6 8.5 - 10.5 mg/dL 05/02/2025 6:19 PM [facility] TOTAL PROTEIN 8.9(H) 6.0 - 8.0 g/dL 05/02/2025 6:19 PM [facility] ALBUMIN 3.7 3.2 - 5.3 g/dL 05/02/2025 6:19 PM [facility] ALKALINE PHOSPHATASE 102 39 - 130 U/L 05/02/2025 6:19 PM [facility] AST 18 <=41 U/L 05/02/2025 6:19 PM [facility] ALT 14 <=40 U/L 05/02/2025 6:19 PM [facility] BILIRUBIN,TOTAL 0.9 0.3 - 1.2 mg/dL 05/02/2025 6:19 PM [facility] EGFR Non-Race Dependent 49(L) >=60 ml/min/1.7 3sq.m 05/02/2025 6:19 PM [facility] Comment: Reported eGFR is based on the CKD-EPI 2020 equation that does not use a race coefficient. Blood Venous blood / Unknown Venipuncture / Unknown 05/02/2025 2:25 PM EDT 05/02/2025 2:25 PM EDT Jessee Molina DO LAB BLOOD ORDERABLES Final Re sult Performing Organization Address City/[facility] Co de Phone Number [facility] [address] [place] [address], [place] [phone] * Triad (04/24/2025 11:26 AM EDT) Only the most recent of3 resultswithin the time period is included. Narrative MANUALLY TRANSCRIBED RESULTS - 04/24/2025 11:26 AM EDT APPLIED IN CLINIC TODAY. Iqra CHAVEZ NURSING COMMUNICATION Fin al Result Performing Organization Address [facility] de Phone Number MANUALLY TRANSCRIBED RESULTS * Debridement (04/24/2025 10:30 AM EDT) Narrative MANUALLY TRANSCRIBED RESULTS - 04/24/2025 10:30 AM EDT SCOTT Vaughn 04/24/2025 12:02 PM Debridement Performed by: SCOTT Vaughn Authorized by: SCOTT Vaughn Associated wounds: Wound 03/28/25 1 Diabetic Ulcer Foot Right;Plantar Consent: Consent obtained: Verbal and written Consent given by: Patient Risks discussed: Yes Debridement Details: Performed by: TREE KILLER Type: Sharp Level: Subcutaneous Tissue, Devitalized tissue and other material debrided: Subcutaneous tissue, fibrin, biofilm and callus Anesthesia administration: topical Anesthesia: EMLA Total Surface Area Debrided cm^2: 7.26 Specimen Taken: None Instrument: Curette Amount of bleeding: Small Bleeding Control: Pressure Response to treatment: Procedure was tolerated well Tissue Applied?: No us Iqra CHAVEZ PROCEDURE/MINOR SURGICAL ORDERABLES Final Result Performing Organization Address [facility] Co de Phone Number MANUALLY TRANSCRIBED RESULTS * Debridement (04/11/2025 10:40 AM EDT) Narrative MANUALLY TRANSCRIBED RESULTS - 04/11/2025 10:40 AM EDT SCOTT Vaughn 04/11/2025 12:18 PM Debridement Performed by: SCOTT Vaughn Authorized by: SCOTT Vaughn Associated wounds: Wound 03/28/25 1 Diabetic Ulcer Foot Right;Plantar Consent: Consent obtained: Verbal and written Consent given by: Patient Risks discussed: Yes Debridement Details: Performed by: TREE KILLER Type: Sharp Level: Subcutaneous Tissue, Devitalized tissue and other material debrided: Subcutaneous tissue, callus and fibrin Anesthesia administration: topical Anesthesia: EMLA Total Surface Area Debrided cm^2: 7.78 Specimen Taken: None Instrument: Curette Amount of bleeding: Medium Bleeding Control: Pressure Response to treatment: Procedure was tolerated well Tissue Applied?: No Iqra CHAVEZ PROCEDURE/MINOR SURGICAL ORDERABLES Final Result Performing Organization Address [facility] de Phone Number MANUALLY TRANSCRIBED RESULTS * Debridement (03/28/2025 10:40 AM EDT) Narrative MANUALLY TRANSCRIBED RESULTS - 03/28/2025 10:40 AM EDT SCOTT Vaughn 03/28/2025 4:19 PM Debridement Performed by: SCOTT Vaughn Authorized by: SCOTT Vaughn Consent: Consent obtained: Verbal and written Consent given by: Patient Risks discussed: Yes Debridement Details: Performed by: TREE KILLER Type: Sharp Level: Subcutaneous Tissue, Devitalized tissue and other material debrided: Callus and subcutaneous tissue Anesthesia administration: topical Anesthesia: EMLA Total Surface Area Debrided cm^2: 10.37 Specimen Taken: None Instrument: Curette Amount of bleeding: Medium Bleeding Control: Pressure Response to treatment: Procedure was tolerated well Tissue Applied?: No Result [facility] Iqra CHAVEZ PROCEDURE/MINOR SURGICAL ORDERABLES Final Result Performing Organization Address [facility] de Phone Number MANUALLY TRANSCRIBED RESULTS from Last 3 Months Insurance [employer] MEDICARE Advance Directives * Full Code (Latest Code Status on File) Date Activated Date Inactivated Comments 04/17/2021 12:59 PM 04/21/2021 5:08 PM * Full Code Date Activated Date Inactivated Comments 02/07/2021 2:54 AM 02/13/2021 1:11 AM Care Teams Dye Range Feeder Relationship Specialty Start Date End Date Jessee Molina DO [address] [place] [address], [facility], [place] [address] PCP - General Family Medicine 04/26/25
--- OUTSIDE RECORDS SUMMARY | 2025-06-05 10:49 | XMS_ITS | Clinical Summary ---
Author Organization [facility] Address [address] [place] [address] Care Team Providers Care Pen Tester Name Role Phone Marilee Staples APRN, NP [...] Not on file Insurance MEDICARE Care Teams Pen Tester Relationship Specialty Start Date End Date Marilee Staples, GALLERY ASSISTANT - FAIRGROUND OPERATOR [address] [place] [address] PCP - General Nurse Practitioner 03/26/21
--- OUTSIDE RECORDS SUMMARY | 2025-06-05 10:49 | XMS_ITS | Encounter Summary ---
Author Organization [facility] Address [address] [place] [address] Care Team Providers Care Electronic Equipment Trades Worker Name Role Phone Amor Fernandez MD Primary Care Provider [phone] Marilee Staples GRILL CHEF Unavailable [phone] Jonny Zhu MD Unavailable Jonny Zhu MD Primary Care Provider [phone] Jonny Zhu MD Primary Care Provider [phone] Marilee Staples GRILL CHEF Unavailable [phone] Unallocated, Noms Provider Primary Care Provi dora Encounter Details Date Type Department Care Team (Late st Contact Info) Description 10/31/[address] [facility] [address] [place] [address] Marilee Staples GRILL CHEF [address] [place] [address] Social History Tobacco Use Types Packs/Day Years Used Date Smoking Tobacco: Never Tobacco Cessation:Counseling Given: Not Answered Alcohol Use Standard Drinks/Week Comments Yes 0 (1 standard drink = 0.6 oz pur e alcohol) 1-2 drinks on a typical day Sex and Gender Information Value Date Recorded Sex Assigned at Not on file Legal Sex Male 7:39 PM EDT Gender Identity Not on file Sexual Orientation Not on file documented as of this encounter Plan of Treatment Not on file documented as of this encounter Visit Diagnoses Not on filedocumented in this encounter Care Teams Electronic Equipment Trades Worker Relationship Specialty Start Date End Date Amor Fernandez MD PCP - General Gastroenterology 04/14/23 10/31/23 Jonny Zhu MD [address] [place] [address] PCP - Devoted 08/22/23 11/21/23 Jonny hZu MD [address] [place] [address] PCP - General Family Medicine 11/01/23 01/05/24 Jonny Zhu MD [address] [place] [address] PCP - General Family Medicine 01/06/24 05/29/25 Unallocated, Bonnie Lama MD [address] [place] [address] PCP - General Family Medicine 05/30/25 Marilee Staples NP [address] [place] [address] Nurse Practitioner Family Medicine 07/23/23 05/29/25 Marilee Staples NP [address] [place] [address] Nurse Practitioner Family Medicine 01/06/24 05/29/25 documented as of this encounter
--- OUTSIDE RECORDS SUMMARY | 2025-06-05 10:49 | XMS_ITS | Encounter Summary ---
Author Organization [facility] Address [address] [place] [address] Care Team Providers Care Clinical Pharmacy Manager Name Role Phone Marilee Staples CERTIFIED PERFORMANCE TECHNOLOGIST Unavailable [phone] Jonny Zhu MD Primary Care Provider [phone] Marilee Staples CERTIFIED PERFORMANCE TECHNOLOGIST Unavailable [phone] Unallocated, Bonnie Lama MD Primary Care Provi dora Reason for Visit * Reason Comments Med Refill Encounter Details Date Type Department Care Team (Late st Contact Info) Description 10/21/2024 Refill [facility] [address] [place] [address] Marilee Staples, CERTIFIED PERFORMANCE TECHNOLOGIST [address] [place] [address] Uncontrolled type 2 diabetes mellitus with hyperglycemia, [...] Never 01/06/2024 How often do you attend baptism or worship serv ices? Never 01/06/2024 Do you belong to any clubs o r organizations such as baptism groups, unions, fraternal or athletic groups, or [...] Recorded Patient Health Questionnaire-2 Score 0 03/13/2024 [facility] Occupat ional Health - [...] place to sleep or slept in a [place] health care facility (including now)? No 01/06/2024 Sex and Gender [...] documented as of this encounter Care Teams Clinical Pharmacy Manager Relationship Specialty Start Date End Date Jonny Zhu MD [address] [place] [address] PCP - General Family Medicine 01/06/24 05/29/25 Unallocated, Bonnie Lama MD [address] [place] [address] PCP - General Family Medicine 05/30/25 Marilee Staples NP [address] [place] [address] Nurse Practitioner Family Medicine 07/23/23 05/29/25 Marilee Staples NP [address] [place] [address] Nurse Practitioner Family Medicine 01/06/24 05/29/25 documented as of this encounter
--- OUTSIDE RECORDS SUMMARY | 2025-06-05 10:49 | XMS_ITS | Encounter Summary ---
Author Organization [employer] [facility] Address [id number] [address] [place] [address] Care Team Providers Care Tipple Engineer Name Role Phone Jessee Molina DO Primary Care Provider [phone] Encounter Details Date Type Department Care Team (Late st Contact Info) Description 01/27/2022 [facility]phone [facility] [address] [place] [address] Radha Dockery CMA Social History [...] How often do you attend mormon or advent serv ices? Never 02/07/2021 Do [...] Answer Date Recorded Total Score 0 02/07/2021 [facility] Occupat ional Health - [...] Recorded Do you need help finding a [facility] career center and/or a training program? [...] Office Visit [facility] [address] [place] [address] Jessee Molina DO [address] [facility], [facility], [place] [address] documented as of this encounter [...] documented as of this encounter Care Teams Tipple Engineer Relationship Specialty Start Date End Date Jessee Molina DO [address] [facility], [facility], [facility] [place] [address] PCP - General Family Medicine 04/26/25 documented as of this encounter
--- OUTSIDE RECORDS SUMMARY | 2025-06-05 10:49 | XMS_ITS | Encounter Summary ---
Author Organization [facility] Address [address] [place] [address] Care Team Providers Care Mounter Name Role Phone Marilee Staples NITROGLYCERIN NEUTRALIZER Unavailable [phone] Jonny Zhu MD Primary Care Provider [phone] Marilee Staples NITROGLYCERIN NEUTRALIZER Unavailable [phone] Unallocated, Bonnie Lama MD Primary Care Provi dora Reason for Visit * Reason Comments Med Refill Encounter Details Date Type Department Care Team (Late st Contact Info) Description 06/10/2024 Refill [facility] [address] [place] [address] Marilee Staples, NITROGLYCERIN NEUTRALIZER [address] [place] [address] Primary hypertension Social History Tobacco Use Types [...] Never 01/06/2024 How often do you attend amish or anglican serv ices? Never 01/06/2024 Do you belong to any clubs o r organizations such as amish groups, unions, fraternal or athletic groups, or [...] Recorded Patient Health Questionnaire-2 Score 0 03/13/2024 [facility] Occupat ional [facility] - Occupational Stress Questionnaire Answer [...] place to sleep or slept in a jail (including now)? No 01/06/2024 Sex and Gender [...] documented as of this encounter Care Teams Mounter Relationship Specialty Start Date End Date Jonny Zhu MD [address] [place] [address] PCP - General Family Medicine 01/06/24 05/29/25 Unallocated, Noms Kelby, [address] [facility] [place] [address] PCP - General Family Medicine 05/30/25 Marilee Staples NP [address] [place] [address] Nurse Practitioner Family Medicine 07/23/23 05/29/25 Marilee Staples NP [address] [place] [address] Nurse Practitioner Family Medicine 01/06/24 05/29/25 documented as of this encounter
--- OUTSIDE RECORDS SUMMARY | 2025-06-05 10:49 | XMS_ITS | Encounter Summary ---
Author Organization [facility] Address [address] [place] [address] Care Team Providers Care Non Licensed Nuclear Equipment Operator Name Role Phone Marilee Staples NP Unavailable [phone] Jonny Zhu MD Primary Care Provider Marilee Stapels NP Unavailable [phone] Unallocated, Noms Kelby GAITAN Primary Care Provi dora Encounter Details Date Type Department Care Team (Late st Contact Info) Description 05/02/2024 Orders Only [facility] [address] [place] [address] Marilee Staples NP [address] [place] [address] Social History Tobacco Use Types Packs/Day Years [...] Never 01/06/2024 How often do you attend yazidi or latter-day serv ices? Never 01/06/2024 Do you belong [...] Recorded Patient Health Questionnaire-2 Score 0 03/13/2024 [facility] Occupat ional Health - Occupational [...] place to sleep or slept in a [facility] (including now)? No 01/06/2024 Sex and Gender [...] - Miscellaneous Test (05/01/2024 10:08 AM EDT) us Marilee Staples ASSOCIATE PROFESSOR OF AUTOMATION LAB BLOOD ORDERABLES Final Resu lt documented in this encounter Visit Diagnoses Not on filedocumented in this encounter Additional Health Concerns Assessment Noted Time PHQ-9 Depression Total Score: 3 01/06/20 24 4:38 PM EST documented as of this encounter Care Teams Non Licensed Nuclear Equipment Operator Relationship Specialty Start Date End Date Jonny Zhu MD [address] [place] [address] PCP - General Family Medicine 01/06/24 05/29/25 Unallocated, Noms Provider, [address] [place], [place] [phone] PCP - General Family Medicine 05/30/25 Marilee Staples NP [address] [place] [address] Nurse Practitioner Family Medicine 07/23/23 05/29/25 Marilee Staples NP [address] [place] [address] Nurse Practitioner Family Medicine 01/06/24 05/29/25 documented as of this encounter
--- OUTSIDE RECORDS SUMMARY | 2025-06-05 10:49 | XMS_ITS | Clinical Summary ---
Author Organization [facility] Address [address] [place] [address] Care Team Providers Care Sausage Cooker Name Role Phone Marilee Staples CNP Primary Care Provider [phone] Allergies No known active allergies Medications metFORMIN [...] Vaccines (1 of 2) 2016 COVID-19 Vaccine (1 - 2023- season) 2024 Influenza Vaccine (#1) 2025 Insurance MEDICARE PART A & B Advance Directives For more information, please contact: [phone] * Full Code - Unverified (Latest Code Status on File) Date Activated Date Inactivated Comments 11/05/2020 7:21 PM 11/21/2020 10:03 PM Care Teams Sausage Cooker Relationship Specialty Start Date End Date Marilee Staples, LOGGING SUPERVISOR [address] [place] [address] PCP - General Nurse Practitioner 11/05/20
--- OUTSIDE RECORDS SUMMARY | 2025-06-05 10:49 | XMS_ITS | Encounter Summary ---
Author Organization [employer] [facility] [employer] Address [id number] [address] [place] [address] Care Team Providers Care Bundle Tier And Labeler Name Role Phone Jessee Molina DO Primary Care Provider [phone] Encounter Details Date Type Department Care Team (Late st Contact Info) Description 02/25/2021 [facility] [address] [place] [address] Radha Dockery CMA Social History [...] Never 02/07/2021 How often do you attend nondenominational or restoration serv ices? Never 02/07/2021 Do [...] Answer Date Recorded Total Score 0 02/07/2021 [facility] of Occupat ional Health - Occupational [...] Recorded Do you need help finding a [facility] career center and/or a training program? [...] 10:21 AM EDT Spoke to Kathrine at [facility] [employer] in [place] [phone] to inform her that the order for [...] with duration faxed to attention Kathrine at [facility]. documented in this encounter Plan of Treatment Upcoming Encounters Date Type Department Care Team (Late st Contact Info) Description 08/10/2025 10:00 AM EDT Office Visit [facility] [address] [place] [address] [place] [address] Jessee Molina, [address] [place] [address], [facility], [address] [place] [id number] documented as of this encounter Goals Goal Patient Goal Type Associated Problems Recent Progress Patient-Stated? Author <enter goal here> General Yes Yulia Ocasio, RN Note: Evaluation of progress towards goal: [facility] documented as of this encounter Visit Diagnoses Not on filedocumented in this encounter Additional Health Concerns Infection Onset Date Last Indicated Resolved Time COVID-19 Rule-Out 08/29/2021 08/29/2021 08/30/2021 11:54 PM EDT Assessment Noted Time PHQ-9 Depression Total Score: 0 02/08/20 21 1:19 PM EDT documented as of this encounter Care Teams Bundle Tier And Labeler Relationship Specialty Start Date End Date Jessee Molina DO [address] [place] [address], [place] [address] PCP - General Family Medicine 04/26/25 documented as of this encounter
--- OUTSIDE RECORDS SUMMARY | 2025-06-05 10:49 | XMS_ITS | Encounter Summary ---
Author Organization [facility] Address [facility] [place] [id number] [address] [place] [address] Care Team Providers Care Mapping Analyst Name Role Phone Jessee Molina Roger SCHWARZ Primary Care Provider [phone] Encounter Details Date Type Department Care Team (Late st Contact Info) Description 02/24/2021 Orders Only [facility] - [facility] Outpatient [address] [place] [phone] Rashel Feldman MD [address] [facility] [place], [place] [phone] Wound, open, foot with complication, left, initial encounter (Primary Dx); Diabetic ulcer of left midfoot associated with type 2 diabetes mellitus, with necrosis of bone ([facility] Social History Tobacco Use Types Packs/Day Years [...] Never 02/07/2021 How often do you attend bahai or christian serv ices? Never 02/07/2021 Do [...] Answer Date Recorded Total Score 0 02/07/2021 [facility]at ional Health - Occupational [...] Recorded Do you need help finding a [facility] career [facility] and/or a training program? [...] Office Visit [facility] [address] [place] [phone] Jessee Molina DO 605 [facility] [place], [place] [address] documented as of this encounter Goals Goal Patient Goal Type Associated Problems Recent Progress Patient-Stated? Author <enter goal here> General Yes Yulia Ocasio, RN Note: Evaluation of progress towards goal: [facility] facility documented as of this encounter [...] documented as of this encounter Care Teams Mapping Analyst Relationship Specialty Start Date End Date Jessee Molina DO 605 [facility] [place], [place], [place] [phone] PCP - General Family Medicine 04/26/25 documented as of this encounter
--- OUTSIDE RECORDS SUMMARY | 2025-06-05 10:49 | XMS_ITS | Encounter Summary ---
Author [id number] [address] [place] [address] Care Team Providers Care Rehabilitation Tech Name Role Phone BrendaJessee aguilar Roger SCHWARZ Primary Care Provider [phone] Reason for Visit * Reason Onset Date Comments Results 05/22/2025 Encounter Details Date Type Department Care Team (Late st Contact Info) Description 05/22/2025 Telephone [facility] [address] [place] [address] Danielle Masters CNA Results Social History Tobacco Use Types Packs/Day Years [...] Never 02/07/2021 How often do you attend cheondoism or pentecostalism serv ices? Never 02/07/2021 Do you belong to any clubs o r organizations such as cheondoism groups, unions, fraternal or athletic groups, or [...] Answer Date Recorded Total Score 3 05/10/2025 [facility] of Occupat ional Health - Occupational Stress [...] Recorded Do you need help finding a [facility] career center and/or a training [...] encounter Miscellaneous Notes * Telephone Encounter - Danielle Masters CNA - 05/22/2025 2:40 PM EDT ----- Message from Jessee Molina DO sent at 05/22/2025 2:11 PM EDT ----- Please let Mr. Rodriguez know that his blood results were all normal except for a low testosterone levels. Both his free and total testosterone rule low. I would recommend a referral to endocrinology to help with diabetes management as well as managing low testosterone levels. His other blood work including his vitamin B12 level, vitamin-D level, and magnesium levels were normal. His PSA blood screening test for prostate cancer is normal at 0.86. Thank you ----- Message ----- From: Lab, Background User Sent: 05/16/2025 1:51 PM EDT To: Jessee Molina DO * Telephone Encounter - Danielle Masters CNA - 05/22/2025 2:40 PM EDT Spoke with patient, he verbalized understanding. Patient declined the referral to endocrinology, just states he needs his meds * Telephone Encounter - Jessee Molina DO - 05/22/2025 2:40 PM EDT Attempted to call patient did not answer I did not leave a message. I wanted to make sure from his last visit that he was able to get his insulins to manage his blood sugars. documented in this encounter Plan of Treatment Upcoming Encounters Date Type Department Care Team (Late st Contact Info) Description 08/10/2025 10:00 AM EDT Office Visit [facility] [address] [place] [phone] eJssee Molina DO [address] [place] [address], [facility], [facility] [place] [address] documented as of this encounter Goals Goal Patient Goal Type Associated Problems Recent Progress Patient-Stated? Author <enter goal here> General Yes Yulia Ocasio, RN Note: Evaluation of progress towards goal[facility] documented as of this encounter Visit Diagnoses Not on filedocumented in this encounter Additional Health Concerns Assessment Noted Time PHQ-9 Depression Total Score: 3 05/10/20 25 9:28 AM EDT documented as of this encounter Care Teams Rehabilitation Tech Relationship Specialty Start Date End Date Jessee Molina DO [address] [facility], [facility], [place] [address] PCP - General Family Medicine 04/26/25 documented as of this encounter
--- OUTSIDE RECORDS SUMMARY | 2025-06-05 10:50 | XMS_ITS | Clinical Summary ---
Author Organization [facility] Address [address] [place] [address] Care Team Providers Care Toll Settlement Clerk Name Role Phone Unavailable Primary Care Provider [...]
--- OUTSIDE RECORDS SUMMARY | 2025-06-05 10:50 | XMS_ITS | Encounter Summary ---
Author Organization [facility] Address [address] [place] [address] Care Team Providers Care Director Software Development Name Role Phone Unavailable Primary Care Provider Unavailabl e Source Comments In the event this information is protected by the Federal Confidentiality of Alcohol and Drug AbusePatient Records regulations: The Federal rules restrict any use of the information to criminally investigate or prosecute any alcohol or drug abuse patient.[facility] Encounter Details Date Type Department Care Team (Late st Contact Info) Description 04/09/2025 Patient Msg Gastroenterology [address] [place] [id number] Javi Thakkar, Research Coordinator Social History Tobacco Use Types Packs/Day Years Used Date Smoking Tobacco: Never Passive Smoke Exposure: Never Smokeless Tobacco: Never Area Deprivation Index Answer Date Diego rded National Score (1-100), lower number is lower ri sk 87 10/24/2024 State Score (1-10), lower number is lower risk 8 10/24/2024 Data from: https://www.neighborhoodatlas.medicine.[facility].edu/. Last address used for calculation [address] [facility] 10/24/2024 Sex and Gender Information Value Date Recorded Sex Assigned at Not on file Legal Sex Male 3:23 PM EDT Gender Identity Not on file Sexual Orientation Not on file documented as of this encounter Plan of Treatment Not on file documented as of this encounter Visit Diagnoses Not on filedocumented in this encounter
== END 2025-06-05 10:47 | disposition home or self-care (01) ==
LOC: WC 10:46
PROVIDERS: PCP Nurse Practitioner; Visit Provider Physician Assistant
DX: E11.621 Type 2 diabetes mellitus with foot ulcer (principal); L97.415 Non-pressure chronic ulcer of right heel and midfoot with muscle involvement without evidence of necrosis
CPT/HCPCS: 11043; A6213

== ENCOUNTER 2025-06-20 13:17 | Outpatient (OUT) | payer MEDICARE, SELFPAY | END 2025-06-20 13:18 | disposition home or self-care (01) | LOC: WC 13:17 | PROVIDERS: PCP Nurse Practitioner; Visit Provider Podiatrist Foot & Ankle Surgery | DX: E11.621 Type 2 diabetes mellitus with foot ulcer (principal); L97.415 Non-pressure chronic ulcer of right heel and midfoot with muscle involvement without evidence of necrosis | CPT/HCPCS: 11043 ==

== ENCOUNTER 2025-06-20 13:43 | Inpatient (IN) | payer MEDICARE, SELFPAY ==
--- OUTSIDE RECORDS SUMMARY | 2025-06-07 11:30 | XMS_ITS | Encounter Summary ---
Author Organization [facility] Language Learning Class [facility] tem Address [id number] [address] [place] [address] Care Team Providers Care Tongue Carrier Name Role Phone Jessee Molina DO Primary Care Provider [phone] Encounter Details Date Type Department Care Team (Latest Contact Info) Description 06/07/2025 11:30 AM EDT - 06/07/2025 11:59 PM EDT Hospital Encounter [facility] - Radiology [address] [place] [address] Right foot ulcer, with unspecified severity ([facility]) Discharge Disposition: Home Social History Tobacco Use [...] How often do you attend gnosticist or baptist serv ices? Never 02/07/2021 Do you belong [...] Answer Date Recorded Total Score 3 05/10/2025 [facility] [place] of Occupat ional Health - Occupational Stress [...] Recorded Do you need help finding a mission [employer] career center and/or a training program? No [...] this encounter Medications at Time of Discharge cholecalciferol, vitamin D3, 2,000 units capsule Take 1 capsule (2,000 Units total) by mouth in the morning. dorzolamide (TRUSOPT) 2 % ophthalmic solutionIndication s:ocular hypertension Administer 1 drop to the right eye in the morning and 1 drop before bedtime. Indications: increased pressure in the eye. latanoprost (XALATAN) 0.005 % ophthalmic solution Administer 1 drop into the left eye once daily at bedtime. INSTILL 1 DROP INTO LEFT EYE AT BEDTIME 03/28/2025 atorvastatin (LIPITOR) 40 mg tabletIndications: hyperlipidemia Take 1 tablet (40 mg total) by mouth daily with breakfast for 360 days Indications: excessive fat in the blood. 90 tablet 3 05/10/2025 BD VERO 2ND GEN PEN NEEDLE 32 gauge x /32 needle 1 Pen Needle by other route 3 (three) times a day. 05/02/2025 blood sugar diagnostic stripIndications:T ype 2 diabetes mellitus with foot ulcer, with long-term current use of insulin ([facility]) 1 strip by other route 4 (four) times a day before meals and nightly. 200 strip 3 05/16/2025 blood-glucose meter kitIndications:Typ e 2 diabetes mellitus with foot ulcer, with long-term current use of insulin ([facility]) Use as instructed 1 each 05/16/2025 celecoxib (CeleBREX) 100 mg capsuleIndications :Chronic midline low back pain without sciatica Take 1 capsule (100 mg total) by mouth in the morning. 30 capsule 2 05/10/2025 hydroCHLOROthiazid e (HYDRODIURIL) 12.5 mg tabletIndications: Benign essential HTN Take 1 tablet (12.5 mg total) by mouth daily. 90 tablet 05/10/2025 insulin aspart U-100 (NovoLOG Flexpen U-100 Insulin) 100 unit/mL (3 mL) insulin penIndications:Typ e 2 diabetes mellitus with foot ulcer, with long-term current use of insulin ([facility]) Sliding scale with pre meal blood sugars three times per day ( max dose 36 units/day) 15 mL 1 05/10/2025 insulin glargine (LANTUS SOLOSTAR U-100 INSULIN) 100 unit/mL (3 mL) insulin penIndications:Typ e 2 diabetes mellitus with foot ulcer, with long-term current use of insulin ([facility]) Inject 30 Units under the skin in the morning and 30 Units before bedtime. 18 mL 1 05/10/2025 lisinopriL (PRINIVIL,ZESTRIL) 10 mg tabletIndications: hypertension Take 1 tablet (10 mg total) by mouth daily with breakfast for 90 days Indications: high blood pressure. 90 tablet 05/10/2025 pantoprazole (PROTONIX) 40 mg EC tabletIndications: Gastroesophageal reflux disease, unspecified whether esophagitis present Take 1 tablet (40 mg total) by mouth in the morning. 90 tablet 05/10/2025 documented as of this encounter Plan of Treatment Upcoming Encounters Date Type Department Care Team (Late st Contact Info) Description 08/10/2025 10:00 AM EDT Office Visit [facility] [address] [place] [address] [address] [place] [address] Jessee Molina, [address] [place] [address], [address], [place] [address] documented as of this encounter Goals Goal Patient Goal Type Associated Problems Recent Progress Patient-Stated? Author <enter goal here> General Yes Yulia Ocasio, RN Note: Evaluation of progress towards goal: [facility] documented as of this encounter Procedures Procedure Name Priority Date/Time Associated Diagnosis Comments XR FOOT RT MIN 3 VWS WEIGHT BEARING Routine 06/07/2025 11:53 AM EDT Right foot ulcer, with unspecified severity ([facility]) documented in this encounter Results * X-ray foot right 3 views weight bearing (06/07/2025 11:53 AM EDT) Anatomical Region Laterality Modality Lower Extremities, MSK, Foot Right Com puted Radiography 06/12/2025 2:04 PM EDT Narrative 06/12/2025 2:05 PM EDT XR FOOT RT MIN 3 VWS WEIGHT BEARING HISTORY: Right foot ulcer, with unspecified severity (CMS-HCC). COMPARISON: 03/04/2025 IMPRESSION: Unchanged indication about the metatarsals. Progressive sclerosis and irregularity of the plantar aspect remnant tarsal/metatarsal are nonspecific, infection is possible. Correlate for associated soft tissue injury, consider MR, as appropriate. Plantar and Achilles calcaneal enthesophytes. Vascular calcifications. Finalized by Thomas Schrader MD on 06/12/2025 2:05 PM Procedure Note Thomas Schrader MD - 06/12/2025 XR FOOT RT MIN 3 VWS WEIGHT BEARING HISTORY: Right foot ulcer, with unspecified severity (CMS-HCC). COMPARISON: 03/04/2025 IMPRESSION: Unchanged indication about the metatarsals. Progressive sclerosis andirregularity of the plantar aspect remnant tarsal/metatarsal arenonspecific, infection is possible. Correlate for associated soft tissueinjury, consider MR, as appropriate. Plantar and Achilles calcanealenthesophytes. Vascular calcifications. Finalized by Thomas Scharder MD on 06/12/2025 2:05 PM Barbara Niño PA-C [facility] Final Result documented in this encounter Visit Diagnoses Diagnosis Right foot ulcer, with unspecified severity (CMS-HCC) documented in this encounter Additional Health Concerns Assessment Noted Time PHQ-9 Depression Total Score: 3 05/10/20 25 9:28 AM EDT documented as of this encounter Care Teams Tongue Carrier Relationship Specialty Start Date End Date Jessee Molina DO [address] [place] [address] B, [place] [address] PCP - General Family Medicine 04/26/25 documented as of this encounter
[2025-06-20] VITALS (14 sets, daily range): BP systolic 84–116; BP diastolic 62–89; PULSE 82–103; TEMP 36.6–36.9; O2SAT 85–100; BMI 37.0; BMI 34.8
--- OUTSIDE RECORDS SUMMARY | 2025-06-20 13:55 | XMS_ITS | Encounter Summary ---
Author Organization [facility] Address [address] [place] [address] Care Team Providers Care Lead Process Engineer Name Role Phone Marilee Staples DENTAL MOLD MAKER Unavailable [phone] Jonny Zhu MD Primary Care Provider [phone] Marilee Staples DENTAL MOLD MAKER Unavailable [phone] Unallocated, Bonnie Lama MD Primary Care Provi dora Reason for Visit * Reason Comments Med Refill Encounter Details Date Type Department Care Team (Late st Contact Info) Description 06/10/2024 Refill [facility] [address] [place] [address] Marilee Staples, DENTAL MOLD MAKER [address] [place] [address] Primary hypertension Social History Tobacco Use Types [...] Never 01/06/2024 How often do you attend mosque or anabaptism serv ices? Never 01/06/2024 Do you belong to any clubs o r organizations such as mosque groups, unions, fraternal or athletic groups, or [...] 0 03/13/2024 [facility] Occupat ional [facility] - Occupational Stress Questionnaire Answer [...] documented as of this encounter Care Teams Lead Process Engineer Relationship Specialty Start Date End Date Jonny Zhu MD [address] [place] [phone] PCP - General Family Medicine 01/06/24 05/29/25 Unallocated, Noms Kelby, [address] [facility] [place] [address] PCP - General Family Medicine 05/30/25 Marilee Staples NP [address] [place] [phone] Nurse Practitioner Family Medicine 07/23/23 05/29/25 Marilee Staples NP [address] [place] [address] Nurse Practitioner Family Medicine 01/06/24 05/29/25 documented as of this encounter
--- OUTSIDE RECORDS SUMMARY | 2025-06-20 13:55 | XMS_ITS | Clinical Summary ---
Author Organization [facility] Address [address], [address] [place] [address] Care Team Providers Care Integration Solution Architect Name Role Phone Marilee Staples APRN, NP [...] Not on file Insurance MEDICARE Care Teams Integration Solution Architect Relationship Specialty Start Date End Date Marilee Staples, [employer] CLOCKS REPAIRER - [place] [employer] OPERATOR [address] [place] [address] PCP - General Nurse Practitioner 03/26/21
--- OUTSIDE RECORDS SUMMARY | 2025-06-20 13:55 | XMS_ITS | Clinical Summary ---
Author Organization [facility] tem Address [id number] [address] [place] [address] Care Team Providers Care Auto Tire Recapper Name Role Phone BrendaJessee aguilar Roger SCHWARZ Primary Care Provider [phone] Allergies Active Allergy Reactions Criticality Noted Date Comments Bee Venom Protein (Honey Bee) Other (See Comments) Medium 11/05/2020 Local swelling Medications dorzolamide (TRUSOPT) 2 % ophthalmic solutionIndicatio ns:ocular hypertension Administer 1 drop to the right eye in the morning and 1 drop before bedtime. Indications: increased pressure in the eye. Active cholecalciferol, vitamin D3, 2,000 units capsule Take 1 capsule (2,000 Units total) by mouth in the morning. Active latanoprost (XALATAN) 0.005 % ophthalmic solution Administer 1 drop into the left eye once daily at bedtime. INSTILL 1 DROP INTO LEFT EYE AT BEDTIME 5 Active lisinopriL (PRINIVIL,ZESTRIL ) 10 mg tabletIndications :hypertension Take 1 tablet (10 mg total) by mouth daily with breakfast for 90 days Indications: high blood pressure. 90 tablet 5 08/08/20 25 Active atorvastatin (LIPITOR) 40 mg tabletIndications :hyperlipidemia Take 1 tablet (40 mg total) by mouth daily with breakfast for 360 days Indications: excessive fat in the blood. 90 tablet 3 5 05/05/20 26 Active hydroCHLOROthiazi de (HYDRODIURIL) 12.5 mg tabletIndications :Benign essential HTN Take 1 tablet (12.5 mg total) by mouth daily. 90 tablet 5 Active pantoprazole (PROTONIX) 40 mg EC tabletIndications :Gastroesophageal reflux disease, unspecified whether esophagitis present Take 1 tablet (40 mg total) by mouth in the morning. 90 tablet 5 Active BD VERO 2ND GEN PEN NEEDLE 32 gauge x 5/32 needle 1 Pen Needle by other route 3 (three) times a day. 5 Active celecoxib (CeleBREX) 100 mg capsuleIndication s:Chronic midline low back pain without sciatica Take 1 capsule (100 mg total) by mouth in the morning. 30 capsule 2 5 Active insulin aspart U-100 (NovoLOG Flexpen U-100 Insulin) 100 unit/mL (3 mL) insulin penIndications:Ty pe 2 diabetes mellitus with foot ulcer, with long-term current use of insulin ([facility]) Sliding scale with pre meal blood sugars three times per day ( max dose 36 units/day) 15 mL 1 5 Active insulin glargine (LANTUS SOLOSTAR U-100 INSULIN) 100 unit/mL (3 mL) insulin penIndications:Ty pe 2 diabetes mellitus with foot ulcer, with long-term current use of insulin ([facility]) Inject 30 Units under the skin in the morning and 30 Units before bedtime. 18 mL 1 5 Active blood-glucose meter kitIndications:Ty pe 2 diabetes mellitus with foot ulcer, with long-term current use of insulin ([facility]) Use as instructed 1 each 5 Active blood sugar diagnostic stripIndications: Type 2 diabetes mellitus with foot ulcer, with long-term current use of insulin ([facility]) 1 strip by other route 4 (four) times a day before meals and nightly. 200 strip 3 5 Active Active Problems Problem Noted Date Diagnosed [...] (08/07/2021): Added automatically from request for surgery [id number] Osteomyelitis of left foot 04/17/2021 Diabetes mellitus [...] (03/19/2021): Added automatically from request for surgery [id number] Wound, open, foot with compl ication, left, initial encounter 02/24/2021 Sepsis 02/07/2021 Diabetic ulcer of right midf oot associated with type 2 diabetes mellitus, with muscle involvement without evidence of necrosis 02/07/2021 Chronic osteomyelitis of left foot with draining sinus 02/07/2021 Encounters Date Type Department Care Team Description 06/07/2025 11:30 AM EDT - 06/07/2025 11:59 PM EDT Hospital Encounter [facility] - Radiology [address] [place] [address] Right foot ulcer, with unspecified severity ([facility]) Discharge Disposition: Home 06/07/2025 Travel 05/22/2025 Telephone [facility] [address] [place] [phone] Danielle Masters CNA Results 05/16/2025 Travel 05/16/2025 Orders Only [facility] [address] [place] [phone] Jessee Molina, DO Type 2 diabetes mellitus with foot ulcer, with long-term current use of insulin ([facility] (Primary Dx) 05/13/2025 Refill [facility] [address] [place] [phone] Jessee Molina, DO Type 2 diabetes mellitus with foot ulcer, with long-term current use of insulin ([facility]) 05/10/2025 9:30 AM EDT Clinical Support [facility] [address] [place] [address] [place] [phone] Jessee Molina, DO Type 2 diabetes mellitus with foot ulcer, with long-term current use of insulin ([facility] Benign essential HTN; Gastroesophageal reflux disease, unspecified whether esophagitis present; Chronic midline low back pain without sciatica; Encounter for screening for malignant neoplasm of prostate; Fatigue, unspecified type 05/10/2025 Travel 05/02/2025 2:27 PM EDT - 05/02/2025 11:59 PM EDT Hospital Encounter [facility] - Radiology [address] [place] [phone] Chronic midline low back pain without sciatica Discharge Disposition: Home 05/02/2025 Travel 04/26/2025 2:00 PM EDT Office Visit [facility] [address] [place] [address] [place] [phone] Jessee Molina, DO Benign essential HTN (Primary Dx); Type 2 diabetes mellitus with foot ulcer, with long-term current use of insulin (CMS-HCC); Chronic midline low back pain without sciatica; Fatty liver disease, nonalcoholic; Visit for wound check; Hyperglycemia; Gastroesophageal reflux disease, unspecified whether esophagitis present 04/24/2025 10:30 AM EDT Office Visit [facility] [address] [place] [phone] Iqra Calderón, CENSUS ENUMERATOR-REHABILITATION DIRECTOR Diabetic ulcer of right midfoot associated with type 2 diabetes mellitus, with muscle involvement without evidence of necrosis (CMS-HCC) (Primary Dx); 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) 04/24/2025 Travel 04/11/2025 10:40 AM EDT Office Visit [facility] [address] [place] [phone] Iqra Calderón, CENSUS ENUMERATOR-REHABILITATION DIRECTOR Diabetic ulcer of right midfoot associated with type 2 diabetes mellitus, with muscle involvement without evidence of necrosis (CMS-HCC) (Primary Dx); History of transmetatarsal amputation of right foot (CMS-HCC); 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); Wound, open, foot with complication, left, initial encounter; Unstable ankle, right 04/11/2025 Travel 03/28/2025 10:40 AM EDT Office Visit [facility] [address] [place] [phone] Iqra Calderón, CENSUS ENUMERATOR-REHABILITATION DIRECTOR Diabetic ulcer of right midfoot associated with type 2 diabetes mellitus, with muscle involvement without evidence of necrosis (CMS-HCC) (Primary Dx); History of transmetatarsal amputation of right foot ([facility]); Visit for wound check 03/28/2025 Travel from [...] Never 02/07/2021 How often do you attend sikhism or sikhism serv ices? Never 02/07/2021 Do you belong to any clubs o r organizations such as sikhism groups, unions, fraternal or athletic groups, or [...] Answer Date Recorded Total Score 3 05/10/2025 [facility] - [...] Recorded Do you need help finding a [facility] center and/or a training program? No 02/07/2021 [...] Description 08/10/2025 10:00 AM EDT Office Visit [facility] [address] [place] [phone] Brendalauren Jessee Duran, [address] [facility], [address], [place] [address] Health Maintenance Due Date Last [...] Note: Evaluation of progress towards goal: pa senior living facility Medical Devices Implanted Type Area Strip Stamp Straightener Device Identifier Shelf Expiration Date Model / Serial / Lot Cmnt Bn Bio 40gm Rpl [id number] - [id number] Implanted:Qty : 2 on 02/07/2021 by Ghulam Brooke DPM at [facility] Cement N/A: Foot [employer] 11/21/2024 [id number] / / [id number] Lens Iol Ultrasert 18.5d - [id number] - [id number] Implanted:Qty : 1 on 12/28/2019 by Debra Trejo MD at [facility] Lens Right: Eye [employer] 07/22/2022 [id number] 18.5 / [id number] / NA Explanted Type Area Strip Stamp Straightener Device Identifier Shelf Expiration Date Model / Serial / Lot Pin Fx 9in in Stnm Ft 2 - [id number] Explanted:Qty: 4 on 04/18/2021 at [facility] Pin [employer] [id number] [id number] / / Description: wilfrid dewitt from tray (smooth wilfrid pins double ended) Procedures Procedure Name Priority Date/Time Associated Diagnosis Comments XR FOOT RT MIN 3 VWS WEIGHT BEARING Routine 06/07/2025 11:53 AM EDT Right foot ulcer, with unspecified severity ([facility]) [facility] GENERIC ORDER #1 Routine 05/16/2025 11:06 [...] ulcer, with long-term current use of insulin ([facility]) CBC WITH AUTO DIFFERENTIAL Routine 05/02/2025 2:25 [...] (CMS-HCC) from Last 3 Months Results * X-ray foot right 3 views [...] HISTORY: Right foot ulcer, with unspecified severity ([facility]). COMPARISON: 03/04/2025 IMPRESSION: Unchanged indication about the metatarsals. Progressive sclerosis andirregularity of the plantar aspect remnant tarsal/metatarsal arenonspecific, infection is possible. Correlate for associated soft tissueinjury, consider MR, as appropriate. Plantar and Achilles calcanealenthesophytes. Vascular calcifications. Finalized by Thomas Schrader MD on 06/12/2025 2:05 PM Barbara Niño PA-C [facility]ER[facility] Final Result * (ABNORMAL) [facility] Generic Order (05/16/2025 11:06 AM EDT) TEST RESULT SEE NOTE(A) 05/22/2025 4:34 AM EDT [facility] Comment: Test name Result Flag Units RefIntvl Testosterone, Total by Vp Revenue Cycle 234.3 L ng/dL 300.0-890.0 This test was developed and its performance characteristics determined by [facility]. It has not been cleared or approved [...] Children, or Individuals on Testosterone-Suppressing Hormone Therapy) ([facility] test code 1815765). For individuals on testosterone hormone therapy, refer to cisgender male reference intervals. No reference intervals have been established for males younger than 18 years or for cisgender females. For a complete set of all established reference intervals, refer to [email or web address]/Tests/Pub/[id number]. This test was developed and its performance characteristics determined by [facility]. It has not been cleared or approved by the [place] Food and Drug Administration. This test was performed in a CLIA certified laboratory and is intended for clinical purposes. Performed By: [facility] [address] [place] [id number] Motion Picture Projectionist: Warren Simmons MD, PhD CLIA Number: [id number] Blood Venous blood / Unknown Venipuncture / Unknown 05/16/2025 11:06 AM EDT 05/16/2025 11:06 AM EDT us Not In System Ref Prov LAB BLOOD ORDERABLES Veronica l Result [facility] [address] [place] [address], [place] * Prostatic specific antigen screen (05/16/2025 11:06 AM EDT) PROSTATIC SPEC ANT 0.86 0.00 - 4.00 ng/mL 05/16/2025 1:51 PM EDT [facility] Comment: The method used for this test is Cat Metrolight DXI chemiluminescent immunoassay. Values obtained by different assay methods cannot be used interchangeably. Blood Venous blood / Unknown Venipuncture / Unknown 05/16/2025 11:06 AM EDT 05/16/2025 11:06 AM EDT us Jessee Molina DO LAB BLOOD ORDERABLES Final Re sult [facility] [address] [place] [address], [place] [phone] * Vitamin D 25 hydroxy (05/16/2025 11:06 AM EDT) VITAMIN D 25 HYD TOT 84.2 30.0 - 100.0 ng/mL 05/16/2025 2:06 PM EDT [facility] Blood Venous blood / Unknown Venipuncture / Unknown 05/16/2025 11:06 AM EDT 05/16/2025 11:06 AM EDT Narrative [facility] - 05/16/2025 2:06 PM EDT Vitamin D status 25 [place] Vitamin D Deficiency <20 ng/mL Insufficiency 20-29 ng/mL Sufficiency 30-100 ng/mL Toxicity >100 ng/mL NOTE: A pediatric reference range has not been established by the pipeline superintendent of this kit. The [employer] recommends a Vitamin D level of = or >20ng/mL in infants and children. Jessee Molina Cardiac Guard LAB BLOOD ORDERABLES Final Re sult [facility] [address] [place] [address], [place] [phone] * Magnesium (05/16/2025 11:06 AM EDT) MAGNESIUM 2.0 1.8 - 2.6 mg/dL 05/16/2025 1:53 PM EDT [facility] Blood Venous blood / Unknown Venipuncture / Unknown 05/16/2025 11:06 AM EDT 05/16/2025 11:06 AM EDT Jessee Duran Excel[employer]lauren LAB BLOOD ORDERABLES Final Re sult [facility] [address] [place] [address], [place] [phone] * (ABNORMAL) Vitamin B12 (05/16/2025 11:06 AM EDT) VITAMIN B12 1,009(H) 180 - 914 pg/mL 05/16/2025 2:05 PM EDT [facility] Blood Venous blood / Unknown Venipuncture / Unknown 05/16/2025 11:06 AM EDT 05/16/2025 11:06 AM EDT Jessee Molina DO LAB BLOOD ORDERABLES Final Re sult [facility] [address] [place] [address], [place] [phone] * X-ray spine lumbar complete including flexion [...] on 05/04/2025 3:25 PM Jessee Molina DO [facility] DIAGNOSTIC IMAGING ORDERA BLES Final Result * (ABNORMAL) CBC auto differential (05/02/2025 2:25 PM EDT) WBC 8.7 4 - 11 x10E9/L 05/02/2025 6:09 PM EDT [facility] RBC Count 5.14 4.1 - 5.7 X10E12/L 05/02/2025 6:09 PM EDT [facility] Hemoglobin 14.1 13 - 17 g/dL 05/02/2025 6:09 PM EDT [facility] Hematocrit 42.3 39 - 50 % 05/02/2025 6:09 PM EDT [facility] MCV 82 80 - 100 fL 05/02/2025 6:09 PM EDT [facility] MCH 27.5 27 - 34 pg 05/02/2025 6:09 PM EDT [facility] MCHC 33.4 32 - 36 g/dL 05/02/2025 6:09 PM EDT [facility] RDW 15.2(H) 11.5 - 15 % 05/02/2025 6:09 PM EDT [facility] Platelet Count 298 150 - 450 X10E9/L 05/02/2025 6:09 PM EDT [facility] MPV 9.5 7 - 12 fL 05/02/2025 6:09 PM EDT [facility] Neutrophils % 63.5 % 05/02/2025 6:09 PM EDT [facility] Lymphocytes % 22.1 % 05/02/2025 6:09 PM EDT [facility] Monocytes % 10.6 % 05/02/2025 6:09 PM EDT [facility] Eosinophils % 2.5 % 05/02/2025 6:09 PM EDT [facility] Basophils % 1.3 % 05/02/2025 6:09 PM EDT [facility] Neutrophils Absolute (A) 5.5 1.5 - 6.6 10*3/uL 05/02/2025 6:09 PM EDT [facility] Lymphocytes Absolute 1.9 1.0 - 3.5 10*3/uL 05/02/2025 6:09 PM EDT [facility] Monocytes Absolute 0.9 0.0 - 0.9 10*3/uL 05/02/2025 6:09 PM EDT [facility] Eosinophils Absolute 0.2 0.0 - 0.4 10*3/uL 05/02/2025 6:09 PM EDT [facility] Basophils Absolute 0.1 0.0 - 0.2 10*3/uL 05/02/2025 6:09 PM EDT [facility] Differential Type AUTOMATED DIFFERENTIAL 05/02/2025 6:09 PM EDT [facility] Blood Venous blood / Unknown Venipuncture / Unknown 05/02/2025 2:25 PM EDT 05/02/2025 2:25 PM EDT Jessee Molina DO LAB BLOOD ORDERABLES Final Re sult [facility] [address] [place] [address], * (ABNORMAL) Hemoglobin A1c (05/02/2025 2:25 PM EDT) HEMOGLOBIN A1C 11.5(H) 4.4 - 5.6 % 05/02/2025 7:54 PM EDT [facility] Comment: ADA Guidelines Result HgbA1c Normal : less than 5.7 % Prediabetes : 5.7 % to 6.4 % Diabetes : > 6.4 % Use with caution in patients with abnormal hemoglobin variants as the half-life of red blood cells and in vivo glycation rates are affected. EST. AVERAGE GLUCOSE 283 mg/dL 05/02/2025 7:54 PM EDT [facility] Blood Venous blood / Unknown Venipuncture / Unknown 05/02/2025 2:25 PM EDT 05/02/2025 2:25 PM EDT us Jessee Molina DO LAB BLOOD ORDERABLES Final Re sult [facility] [address] [place] [id number], * (ABNORMAL) Comprehensive metabolic panel (05/02/2025 2:25 PM EDT) SODIUM 132(L) 134 - 146 mmol/L 05/02/2025 6:19 PM EDT [facility] POTASSIUM 4.1 3.5 - 5.0 mmol/L 05/02/2025 6:19 PM EDT [facility] CHLORIDE 100 98 - 109 mmol/L 05/02/2025 6:19 PM EDT [facility] CARBON DIOXIDE 22 22 - 32 mmol/L 05/02/2025 6:19 PM EDT [facility] ANION GAP 10 5 - 15 mmol/L 05/02/2025 6:19 PM EDT [facility] BLOOD UREA NITROGEN 28(H) 5 - 23 mg/dL 05/02/2025 6:19 PM EDT [facility] CREATININE 1.61(H) 0.60 - 1.30 mg/dL 05/02/2025 6:19 PM EDT [facility] Comment:METHOD TRACEABLE TO IDMS STANDARD GLUCOSE 323(H) 65 - 99 mg/dL 05/02/2025 6:19 PM EDT [facility] CALCIUM 9.6 8.5 - 10.5 mg/dL 05/02/2025 6:19 PM EDT [facility] TOTAL PROTEIN 8.9(H) 6.0 - 8.0 g/dL 05/02/2025 6:19 PM EDT [facility] ALBUMIN 3.7 3.2 - 5.3 g/dL 05/02/2025 6:19 PM EDT [facility] ALKALINE PHOSPHATASE 102 39 - 130 U/L 05/02/2025 6:19 PM EDT [facility] AST 18 <=41 U/L 05/02/2025 6:19 PM EDT [facility] ALT 14 <=40 U/L 05/02/2025 6:19 PM EDT [facility] BILIRUBIN,TOTAL 0.9 0.3 - 1.2 mg/dL 05/02/2025 6:19 PM EDT [facility] EGFR Non-Race Dependent 49(L) >=60 ml/min/1.7 3sq.m 05/02/2025 6:19 PM EDT [facility] Comment: Reported eGFR is based on the CKD-EPI 2020 equation that does not use a race coefficient. Blood Venous blood / Unknown Venipuncture / Unknown 05/02/2025 2:25 PM EDT 05/02/2025 2:25 PM EDT us Jessee Molina DO LAB BLOOD ORDERABLES Final Re sult [facility] [address] [place] [address], [place] [phone] * Triad (04/24/2025 11:26 AM EDT) Only the most recent of3 resultswithin the time period is included. Narrative MANUALLY TRANSCRIBED RESULTS - 04/24/2025 11:26 AM EDT APPLIED IN CLINIC TODAY. us Iqra Calderón CENSUS ENUMERATOR-REHABILITATION DIRECTOR NURSING COMMUNICATION Fin al Result MANUALLY TRANSCRIBED RESULTS * Debridement (04/24/2025 10:30 AM EDT) Narrative MANUALLY TRANSCRIBED RESULTS - 04/24/2025 10:30 AM EDT SCOTT Vaughn 04/24/2025 12:02 PM Debridement Performed by: SCOTT Vaughn Authorized by: SCOTT Vaughn Associated wounds: Wound 03/28/25 1 Diabetic Ulcer Foot Right;Plantar Consent: Consent obtained: Verbal and written Consent given by: Patient Risks discussed: Yes Debridement Details: Performed by: CERTIFIED WELDER Type: Sharp Level: Subcutaneous Tissue, Devitalized tissue and other material debrided: Subcutaneous tissue, fibrin, biofilm and callus Anesthesia administration: topical Anesthesia: EMLA Total Surface Area Debrided cm^2: 7.26 Specimen Taken: None Instrument: Curette Amount of bleeding: Small Bleeding Control: Pressure Response to treatment: Procedure was tolerated well Tissue Applied?: No Iqra CHAVEZ PROCEDURE/MINOR SURGICAL ORDERABLES Final Result Performing Organization Address [facility] de Phone Number MANUALLY TRANSCRIBED RESULTS * Debridement (04/11/2025 10:40 AM EDT) Narrative MANUALLY TRANSCRIBED RESULTS - 04/11/2025 10:40 AM EDT SCOTT Vaughn 04/11/2025 12:18 PM Debridement Performed by: SCOTT Vaughn Authorized by: SCOTT Vaughn Associated wounds: Wound 03/28/25 1 Diabetic Ulcer Foot Right;Plantar Consent: Consent obtained: Verbal and written Consent given by: Patient Risks discussed: Yes Debridement Details: Performed by: CERTIFIED WELDER Type: Sharp Level: Subcutaneous Tissue, Devitalized tissue and other material debrided: Subcutaneous tissue, callus and fibrin Anesthesia administration: topical Anesthesia: EMLA Total Surface Area Debrided cm^2: 7.78 Specimen Taken: None Instrument: Curette Amount of bleeding: Medium Bleeding Control: Pressure Response to treatment: Procedure was tolerated well Tissue Applied?: No Iqra CHAVEZ PROCEDURE/MINOR SURGICAL ORDERABLES Final Result Performing Organization Address [facility] de Phone Number MANUALLY TRANSCRIBED RESULTS * Debridement (03/28/2025 10:40 AM EDT) Narrative MANUALLY TRANSCRIBED RESULTS - 03/28/2025 10:40 AM EDT SCOTT Vaughn 03/28/2025 4:19 PM Debridement Performed by: SCOTT Vaughn Authorized by: SCOTT Vaughn Consent: Consent obtained: Verbal and written Consent given by: Patient Risks discussed: Yes Debridement Details: Performed by: CERTIFIED WELDER Type: Sharp Level: Subcutaneous Tissue, Devitalized tissue and other material debrided: Callus and subcutaneous tissue Anesthesia administration: topical Anesthesia: EMLA Total Surface Area Debrided cm^2: 10.37 Specimen Taken: None Instrument: Curette Amount of bleeding: Medium Bleeding Control: Pressure Response to treatment: Procedure was tolerated well Tissue Applied?: No us Iqra CHAVEZ PROCEDURE/MINOR SURGICAL ORDERABLES Final Result MANUALLY TRANSCRIBED RESULTS from Last 3 Months Insurance [facility] MEDICARE Advance Directives * Full Code (Latest Code Status on File) Date Activated Date Inactivated Comments 04/17/2021 12:59 PM 04/21/2021 5:08 PM * Full Code Date Activated Date Inactivated Comments 02/07/2021 2:54 AM 02/13/2021 1:11 AM Care Teams Auto Tire Recapper Relationship Specialty Start Date End Date Jessee Molina DO [address] [place] [address], [place] [address] PCP - General Family Medicine 04/26/25
--- OUTSIDE RECORDS SUMMARY | 2025-06-20 13:55 | XMS_ITS | Encounter Summary ---
Author Organization [facility] tem Address [place]-[id number] [address] [place] [address] Care Team Providers Care Hand Turner Name Role Phone Jessee Molina Roger SCHWARZ Primary Care Provider [phone] Encounter Details Date Type Department Care Team (Late st Contact Info) Description 02/24/2021 Orders Only - Wound Care Outpatient 2 [place] [id number] Rashel Feldman MD [address] [facility] [place], [place] [address] Wound, open, foot with complication, left, initial encounter (Primary Dx); Diabetic ulcer of left midfoot associated with type 2 diabetes mellitus, with necrosis of bone ([facility]) Social History Tobacco Use Types Packs/Day Years [...] Never 02/07/2021 How often do you attend congregation or lutheran serv ices? Never 02/07/2021 Do you belong to any clubs o r organizations such as congregation groups, unions, fraternal or athletic groups, or [...] Answer Date Recorded Total Score 0 02/07/2021 [facility] of Occupat ional Health - [...] Recorded Do you need help finding a [facility] and/or a training [...] Office Visit [facility] [address] [place] [phone] Jessee Molina DO 605 [facility], [place] [address] documented as of this encounter Goals Goal Patient Goal Type Associated Problems Recent Progress Patient-Stated? Author <enter goal here> General Yes Yulia Ocasio, RN Note: Evaluation of progress towards goal: [facility] facility documented as of this encounter [...] documented as of this encounter Care Teams Hand Turner Relationship Specialty Start Date End Date Jessee Molina DO [address] [facility], [place], [place] [address] PCP - General Family Medicine 04/26/25 documented as of this encounter
--- OUTSIDE RECORDS SUMMARY | 2025-06-20 13:55 | XMS_ITS | Encounter Summary ---
Author Organization [facility] Address [address] [place] [address] Care Team Providers Care School Guard Name Role Phone Marilee Staples BROTH MIXER Unavailable [phone] Jonny Zhu MD Primary Care Provider [phone] Marilee Staples BROTH MIXER Unavailable [phone] Unallocated, Bonnie Lama MD Primary Care Provi dora Reason for Visit * Reason Comments Med Refill Encounter Details Date Type Department Care Team (Late st Contact Info) Description 02/28/2025 Refill [facility] [address] [place] [address] Marilee Staples, BROTH MIXER [address] [place] [address] Primary hypertension Social History Tobacco Use Types [...] Never 01/06/2024 How often do you attend jehovah's witness or baptist serv ices? Never 01/06/2024 Do you belong [...] Recorded Patient Health Questionnaire-2 Score 0 03/13/2024 [facility]at [facility] - Occupational Stress Questionnaire Answer Date [...] documented as of this encounter Care Teams School Guard Relationship Specialty Start Date End Date Jonny Zhu MD [address] [place] [address] PCP - General Family Medicine 01/06/24 05/29/25 Unallocated, Noms Kelby, [address] [facility] [place] [address] PCP - General Family Medicine 05/30/25 Marilee Staples NP [address] [place] [address] Nurse Practitioner Family Medicine 07/23/23 05/29/25 Marilee Staples NP [address] [place] [address] Nurse Practitioner Family Medicine 01/06/24 05/29/25 documented as of this encounter
--- OUTSIDE RECORDS SUMMARY | 2025-06-20 13:55 | XMS_ITS | Encounter Summary ---
Author Organization [facility] Address [address] [place] [address] Care Team Providers Care Desk Representative Name Role Phone Amor Fernandez MD Primary Care Provider [phone] Marilee Staples REINSURANCE ACCOUNTANT Unavailable [phone] Jonny Zhu MD Unavailable Jonny Zhu MD Primary Care Provider [phone] Jonny Zhu MD Primary Care Provider [phone] Marilee Staples REINSURANCE ACCOUNTANT Unavailable [phone] Unallocated, Noms Provider Primary Care Provi dora Encounter Details Date Type Department Care Team (Late st Contact Info) Description 10/31/2023 Abstract [facility] [address] [place] [address] Marilee Staples REINSURANCE ACCOUNTANT [address] [place] [address] Social History Tobacco Use Types Packs/Day Years [...] on filedocumented in this encounter Care Teams Desk Representative Relationship Specialty Start Date End Date Amor Fernandez MD PCP - General Gastroenterology 04/14/23 10/31/23 Jonny Zhu MD [address] [place] [phone] PCP - Devoted 08/22/23 11/21/23 Jonny Zhu MD [address] [place] [address] PCP - General Family Medicine 11/01/23 01/05/24 Jonny Zhu MD [address] [place] [address] PCP - General Family Medicine 01/06/24 05/29/25 Unallocated, Bonnie Lama MD [address] [place] [address] PCP - General Family Medicine 05/30/25 Marilee Staples NP [address] [place] [phone] Nurse Practitioner Family Medicine 07/23/23 05/29/25 Marilee Staples NP [address] [place] [address] Nurse Practitioner Family Medicine 01/06/24 05/29/25 documented as of this encounter
--- OUTSIDE RECORDS SUMMARY | 2025-06-20 13:55 | XMS_ITS | Encounter Summary ---
Author Organization [facility] Address [id number] [address] [place] [address] Care Team Providers Care Yoga Instructor Name Role Phone Jessee Molina DO Primary Care Provider [phone] Encounter Details Date Type Department Care Team (Late st Contact Info) Description 01/27/2022 [facility] [address] [place] [address] Radha Dockery CMA Social History [...] Never 02/07/2021 How often do you attend catholic or taoism serv ices? Never 02/07/2021 Do you belong to any clubs o r organizations such as catholic groups, unions, fraternal or athletic groups, or [...] Recorded Total Score 0 02/07/2021 [facility] of Occupat ional Health - [...] Office Visit [facility] [address] [place] [phone] Jessee Molina DO 605 [facility], [facility], [place] [address] documented as of this encounter Goals Goal Patient Goal Type Associated Problems Recent Progress Patient-Stated? Author <enter goal here> General Yes Yulia Ocasio, RN Note: Evaluation of progress towards goal: [facility] documented as of this encounter Visit Diagnoses Not on filedocumented in this encounter Additional Health Concerns Assessment Noted Time PHQ-9 Depression Total Score: 0 02/08/20 21 1:19 PM EDT documented as of this encounter Care Teams Yoga Instructor Relationship Specialty Start Date End Date Jessee Molina DO [address] [facility], [facility], [facility] [place] [address] PCP - General Family Medicine 04/26/25 documented as of this encounter
--- OUTSIDE RECORDS SUMMARY | 2025-06-20 13:55 | XMS_ITS | Clinical Summary ---
Author Organization [facility] Address [address] [place] [address] Care Team Providers Care Appraiser Personal Property Name Role Phone Unallocated, Noms Provider Primary [...] hyperglycemia, with long-term current use of insulin ([facility]) Take 1 tablet (1,000 mg) [...] hyperglycemia, with long-term current use of insulin ([facility]) Take 1 tablet (40 mg) by mouth in the evening 100 tablet 4 Active DULoxetine (Cymbalta) [address] capsuleIndication s:Type 2 diabetes mellitus with diabetic neuropathy, with long-term current use of insulin ([facility]) Take 1 capsule (30 mg) [...] that we could order from [facility] in [place] as they can bill DME, he then [...] 01/06/2024 Anxiety, generalized 01/06/2024 Encounter for subsequent [facility] wellness visit (AWV) in Medicare patient [...] duloxetine as well as elavil Has established tax services specialist Assessment & Plan (11/02/2023 3:11 PM EST): [...] (10/27/2023): Added automatically from request for surgery [id number] Hyperlipidemia 03/21/2021 Assessment & Plan (11/02/2023 3:09 PM EST): Cont statin Check labs Cellulitis 01/24/2014 Resolved Problems Problem Noted Date Diagnosed Date Resolved Date Open wound of toe 10/27/2023 01/06/2024 Charcot's joint of foot, left 03/19/2021 01/06/2024 Overview (10/27/2023): Added automatically from request for surgery [id number] Wound, open, foot with compl ication, left, [...] How often do you attend yazidi or buddhism serv ices? Never 01/06/2024 Do you belong [...] Recorded Patient Health Questionnaire-2 Score 0 03/13/2024 [facility] - Occupational Stress Questionnaire Answer Date [...] place to sleep or slept in a mcc (including now)? No 01/06/2024 Sex and Gender [...] - 30.0 mg/g creat [facility] Comment:PERFORMED AT [facility] [address],[place] [address] 05/01/2024 11:2 9 AM EDT 05/01/2024 11:30 AM EDT us Marilee Staples AN EMPLOYEE SPONSOR OR ADVOCATE AND LAB URINE ORDERABLES Final Resu lt [facility] from Last 3 Months or Most Recently Relevant to Health Maintenance Insurance [employer] MEDICARE ADVANTAGE Care Teams Appraiser Personal Property Relationship Specialty Start Date End Date Unallocated, Noms MD Kelby [address] [place], [place] [id number] PCP - General Family Medicine 05/30/25
--- OUTSIDE RECORDS SUMMARY | 2025-06-20 13:55 | XMS_ITS | Encounter Summary ---
Author Organization [facility] Address [address] [place] [address] Care Team Providers Care Aluminum Siding Installer Name Role Phone Marilee Staples NP Unavailable [phone] Jonny Zhu MD Primary Care Provider Marilee Stapels NP Unavailable [phone] Unallocated, Noms Kelby GAITAN Primary Care Provi dora Encounter Details Date Type Department Care Team (Late st Contact Info) Description 05/02/2024 Orders Only [facility] [address] [place] [phone] Marilee Staples NP [address] [place] [address] Social History Tobacco Use Types [...] Never 01/06/2024 How often do you attend christian or moravian serv ices? Never 01/06/2024 Do you belong to any clubs o r organizations such as christian groups, unions, fraternal [...] Recorded Patient Health Questionnaire-2 Score 0 03/13/2024 [facility] of Occupat ional Health - [...] place to sleep or slept in a long term (including now)? No 01/06/2024 Sex and Gender [...] (05/01/2024 10:08 AM EDT) us Marilee Staples PERFORATOR LOADER LAB BLOOD ORDERABLES Final Resu lt documented in this encounter Visit Diagnoses Not on filedocumented in this encounter Additional Health Concerns Assessment Noted Time PHQ-9 Depression Total Score: 3 01/06/20 24 4:38 PM EST documented as of this encounter Care Teams Aluminum Siding Installer Relationship Specialty Start Date End Date Jonny Zhu MD [address] [place] [address] PCP - General Family Medicine 01/06/24 05/29/25 Unallocated, Noms Provider, [address] [place], [place] [address] PCP - General Family Medicine 05/30/25 Marilee Staples NP [address] [place] [address] Nurse Practitioner Family Medicine 07/23/23 05/29/25 Marilee Staples NP [address] [place] [address] Nurse Practitioner Family Medicine 01/06/24 05/29/25 documented as of this encounter
--- OUTSIDE RECORDS SUMMARY | 2025-06-20 13:55 | XMS_ITS | Encounter Summary ---
Author Organization [email or web address] [facility] tem Address [id number] [address] [place] [address] Care Team Providers Care Orthopedic Assistant Name Role Phone BrendalaurenJessee DO Primary Care Provider [phone] Encounter Details Date Type Department Care Team (Latest Contact Info) Description 06/07/2025 Travel Social History Tobacco Use Types Packs/Day [...] How often do you attend alevism or methodist serv ices? Never 02/07/2021 Do you belong [...] Answer Date Recorded Total Score 3 05/10/2025 [facility] Questionnaire Answer Date Recorded [...] Recorded Do you need help finding a [employer] [facility] career center and/or a training program? No [...] Office Visit [facility] [address] [place] [address] Jessee Molina DO 605 [facility], [place], [place] [phone] documented as of this encounter Goals Goal Patient Goal Type Associated Problems Recent Progress Patient-Stated? Author <enter goal here> General Yes Yulia Ocasio, RN Note: Evaluation of progress towards goal: pr intermediate facility documented as of this encounter Visit Diagnoses Not on filedocumented in this encounter Additional Health Concerns Assessment Noted Time PHQ-9 Depression Total Score: 3 05/10/20 25 9:28 AM EDT documented as of this encounter Care Teams Orthopedic Assistant Relationship Specialty Start Date End Date Jessee Molina DO 605 [facility], [place], [place] [address] PCP - General Family Medicine 04/26/25 documented as of this encounter
--- OUTSIDE RECORDS SUMMARY | 2025-06-20 13:55 | XMS_ITS | Clinical Summary ---
Author Organization [facility] Address [address] [place] [address] Care Team Providers Care Analytical Research Chemist Name Role Phone Marilee Staples CNP Primary Care Provider Allergies No known active allergies Medications metFORMIN [...] Advance Directives For more information, please contact: [phone] * Full Code - Unverified (Latest Code Status on File) Date Activated Date Inactivated Comments 11/05/2020 7:21 PM 11/21/2020 10:03 PM Care Teams Analytical Research Chemist Relationship Specialty Start Date End Date Marilee Staples, SPARE PERSON [address] [place] [address] PCP - General Nurse Practitioner 11/05/20
--- OUTSIDE RECORDS SUMMARY | 2025-06-20 13:55 | XMS_ITS | Encounter Summary ---
Author Organization [employer] tem Address [facility]-[id number] [address] [place] [address] Care Team Providers Care Leadlighter Name Role Phone Brendalauren Jessee Duran DO Primary Care Provider [phone] Encounter Details Date Type Department Care Team (Late st Contact Info) Description 03/11/2021 Telephone [facility] [address] [place] [address] Ghulam Brooke, DPM [address] [facility] [address] [place] [address] Social History Tobacco Use Types Packs/Day Years [...] Never 02/07/2021 How often do you attend faith or bahai serv ices? Never 02/07/2021 Do you belong to any clubs o r organizations such as faith groups, unions, fraternal or athletic groups, or [...] Answer Date Recorded Total Score 0 02/07/2021 [facility] of Occupat ional Health - Occupational [...] Office Visit [facility] [address] [place] [address] [place] [address] Jessee Molina, [address] [place] [address], [facility], [place] [address] documented as of this encounter Goals Goal Patient Goal Type Associated Problems Recent Progress Patient-Stated? Author <enter goal here> General Yes Yulia Ocasio, RN Note: Evaluation of progress towards goal: [facility] facility documented as of this encounter Visit Diagnoses Not on filedocumented in this encounter Additional Health Concerns Infection Onset Date Last Indicated Resolved Time COVID-19 Rule-Out 08/29/2021 08/29/2021 08/30/2021 11:54 PM EDT Assessment Noted Time PHQ-9 Depression Total Score: 0 02/08/20 21 1:19 PM EDT documented as of this encounter Care Teams Leadlighter Relationship Specialty Start Date End Date Jessee Molina DO [address] [facility], [facility], [address] [place] [phone] PCP - General Family Medicine 04/26/25 documented as of this encounter
--- OUTSIDE RECORDS SUMMARY | 2025-06-20 13:55 | XMS_ITS | Encounter Summary ---
Author Organization [employer] [facility] Address [facility][id number] [address] [place] [address] Care Team Providers Care Carpet Cleaning Technician Name Role Phone Jessee Molina DO Primary Care Provider [phone] Encounter Details Date Type Department Care Team (Late st Contact Info) Description 02/25/2021 [facility]phone [facility] [address] [place] [address] Radha Dockery CMA Social History [...] Never 02/07/2021 How often do you attend anabaptism or amish serv ices? Never 02/07/2021 Do you belong to any clubs o r organizations such as anabaptism groups, unions, fraternal or athletic groups, or [...] Answer Date Recorded Total Score 0 02/07/2021 [facility] of Occupat ional Health - Occupational [...] Recorded Do you need help finding a [facility] career center and/or a training program? No [...] 10:21 AM EDT Spoke to Kathrine at [facility] in [place] [phone] to inform her that the order for [...] with duration faxed to attention Kathrine at [place]. documented in this encounter Plan of Treatment Upcoming Encounters Date Type Department Care Team (Late st Contact Info) Description 08/10/2025 10:00 AM EDT Office Visit [facility] [address] [place] [address] [place] [address] Jessee Molina, [address] [place] [address], [facility], [address] [place] [id number] documented as of this encounter Goals Goal Patient Goal Type Associated Problems Recent Progress Patient-Stated? Author <enter goal here> General Yes Yulia Ocasio, RN Note: Evaluation of progress towards goal: [facility] facility documented as of this encounter Visit Diagnoses Not on filedocumented in this encounter Additional Health Concerns Infection Onset Date Last Indicated Resolved Time COVID-19 Rule-Out 08/29/2021 08/29/2021 08/30/2021 11:54 PM EDT Assessment Noted Time PHQ-9 Depression Total Score: 0 02/08/20 21 1:19 PM EDT documented as of this encounter Care Teams Carpet Cleaning Technician Relationship Specialty Start Date End Date Jessee Molina DO [address] [place] [address], [place] [address] PCP - General Family Medicine 04/26/25 documented as of this encounter
--- OUTSIDE RECORDS SUMMARY | 2025-06-20 13:55 | XMS_ITS | Encounter Summary ---
Author Organization [employer] [facility] Address [facility][id number] [address] [place] [address] Care Team Providers Care Specifications Writer Name Role Phone Jessee Molina DO Primary Care Provider [phone] Encounter Details Date Type Department Care Team (Late st Contact Info) Description 02/21/2021 [facility]phone [facility] [address] [place] [address] Lakshmi Tapia [facility] Social History Tobacco Use Types Packs/Day [...] Never 02/07/2021 How often do you attend samaritan or buddhist serv ices? Never 02/07/2021 Do you belong to any clubs o r organizations such as samaritan groups, unions, fraternal or athletic groups, or [...] Answer Date Recorded Total Score 0 02/07/2021 [facility] of Occupat ional Health - Occupational [...] Recorded Do you need help finding a [facility] career center and/or a training [...] 02/21/2021 12:45 PM EDT Nani called from [facility] stating that Mr. Rodriguez will be discharged to [facility] in [place]. Once he is discharged he will not be getting Hyperbaric treatments. She stated they exhaustedall efforts to set something up, but it was not possible. Her number is [phone] if you would like to speak with her. Lakshmi Tapia CMA 02/21/21 1251 * Telephone Encounter - Ghluam Brooke DPM - 02/21/2021 12:45 PM EDT [...] Visit [facility] [address] [place] [address] [place] [address] Jessee Molina, [address] [place] [address], [facility], [place] [address] documented as of this encounter Goals Goal Patient Goal Type Associated Problems Recent Progress Patient-Stated? Author <enter goal here> General Yes Yulia Ocasio, RN Note: Evaluation of progress towards goal: [facility] facility documented as of this encounter Visit Diagnoses Not on filedocumented in this encounter Additional Health Concerns Infection Onset Date Last Indicated Resolved Time COVID-19 Rule-Out 08/29/2021 08/29/2021 08/30/2021 11:54 PM EDT Assessment Noted Time PHQ-9 Depression Total Score: 0 02/08/20 21 1:19 PM EDT documented as of this encounter Care Teams Specifications Writer Relationship Specialty Start Date End Date Jessee Molina DO [address] [place] [address], [place] [address] PCP - General Family Medicine 04/26/25 documented as of this encounter
--- OUTSIDE RECORDS SUMMARY | 2025-06-20 13:55 | XMS_ITS | Encounter Summary ---
Author Organization [facility] Address [address] [place] [address] Care Team Providers Care Digital Sales Director Name Role Phone Amor Fernandez MD Primary Care Provider [phone] Marilee Staples COMMERCIAL INTERN Unavailable [phone] Jonny Zhu MD Unavailable Jonny Zhu MD Primary Care Provider Jonny Zhu MD Primary Care Provider Marilee Staples COMMERCIAL INTERN Unavailable [phone] Unallocated, Noms Provider Primary Care Provi dora Encounter Details Date Type Department Care Team (Late st Contact Info) Description 04/13/2023 Abstract [facility] [place] [facility] [address] [facility] [address] [place] [phone] Otto Esparza MD [address] [facility] [address] [place] [address] Social History Tobacco Use Types [...] on filedocumented in this encounter Care Teams Digital Sales Director Relationship Specialty Start Date End Date Amor Fernandez MD PCP - General Gastroenterology 04/14/23 10/31/23 Jonny Zhu MD [address] [place] [address] PCP - Devoted 08/22/23 11/21/23 Jonny Zhu MD [address] [place] [address] PCP - General Family Medicine 11/01/23 01/05/24 Jonny Zhu MD [address] [place] [address] PCP - General Family Medicine 01/06/24 05/29/25 Unallocated, Bonnie Lama MD [address] [place] [address] PCP - General Family Medicine 05/30/25 Marilee Staples NP [address] [place] [address] Nurse Practitioner Family Medicine 07/23/23 05/29/25 Marilee Staples NP [address] [place] [address] Nurse Practitioner Family Medicine 01/06/24 05/29/25 documented as of this encounter
--- OUTSIDE RECORDS SUMMARY | 2025-06-20 13:55 | XMS_ITS | Encounter Summary ---
Author Organization [facility] Address [address] [place] [address] Care Team Providers Care Power Washer Name Role Phone Marilee Staples SYSTEM SUPPORT SPECIALIST Unavailable [phone] Jonny Zhu MD Primary Care Provider [phone] Marilee Staples SYSTEM SUPPORT SPECIALIST Unavailable [phone] Unallocated, Bonnie Lama MD Primary Care Provi dora Reason for Visit * Reason Comments Med Refill Encounter Details Date Type Department Care Team (Late st Contact Info) Description 10/21/2024 Refill [facility] [address] [place] [address] Marilee Staples, SYSTEM SUPPORT SPECIALIST [address] [place] [phone] Uncontrolled type 2 diabetes mellitus with hyperglycemia, [...] How often do you attend nondenominational or adventist serv ices? Never 01/06/2024 Do you belong [...] Patient Health Questionnaire-2 Score 0 03/13/2024 [facility] [...] documented as of this encounter Care Teams Power Washer Relationship Specialty Start Date End Date Jonny Zhu MD [address] [place] [address] PCP - General Family Medicine 01/06/24 05/29/25 Unallocated, Bonnie Lama MD [address] [place] [address] PCP - General Family Medicine 05/30/25 Marilee Staples NP [address] [place] [address] Nurse Practitioner Family Medicine 07/23/23 05/29/25 Marilee Staples NP [address] [place] [address] Nurse Practitioner Family Medicine 01/06/24 05/29/25 documented as of this encounter
--- OUTSIDE RECORDS SUMMARY | 2025-06-20 13:56 | XMS_ITS | Clinical Summary ---
Author Organization [facility] Address [address] [place] [address] Care Team Providers Care Stump Blower Name Role Phone Unavailable Primary Care Provider [...]
--- OUTSIDE RECORDS SUMMARY | 2025-06-20 13:56 | XMS_ITS | Encounter Summary ---
Author Organization [facility] Address [address] [place] [id number] Care Team Providers Care Vegetable Farmer Name Role Phone Unavailable Primary Care Provider Unavailabl e Source Comments In the event this information is protected by the Federal Confidentiality of Alcohol and Drug AbusePatient Records regulations: The Federal rules restrict any use of the information to criminally investigate or prosecute any alcohol or drug abuse patient.[facility] Encounter Details Date Type Department Care Team (Late st Contact Info) Description 04/09/2025 Patient Msg Gastroenterology [address] [id number] Javi Thakkar, Research Coordinator Social History Tobacco Use Types Packs/Day Years Used Date Smoking Tobacco: Never Passive Smoke Exposure: Never Smokeless Tobacco: Never Area Deprivation Index Answer Date Diego rded National Score (1-100), lower number is lower ri sk 87 10/24/2024 State Score (1-10), lower number is lower risk 8 10/24/2024 Data from: https://www.neighborhoodatlas.medicine.[facility].edu/. Last address used for calculation [address] [facility] 10/24/2024 Sex and Gender Information Value Date Recorded Sex Assigned at Not on file Legal Sex Male 3:23 PM EDT Gender Identity Not on file Sexual Orientation Not on file documented as of this encounter Plan of Treatment Not on file documented as of this encounter Visit Diagnoses Not on filedocumented in this encounter
--- OUTSIDE RECORDS SUMMARY | 2025-06-20 13:56 | XMS_ITS | Clinical Summary ---
Author Organization [facility] Address [address] [place] [address] Care Team Providers Care Learning Disabilities Teacher Name Role Phone Unavailable Primary Care Provider [...] for 4 weeks. 60 tablet 5 Active Active Problems Problem Noted Date [...] Care Team Description 04/20/2025 GI Preprocedure Call [facility] [place] [phone] Esau Del Toro DO 04/18/2025 Telephone General Surgery [place] [phone] Esau Del Toro, Care Coordination (Appeal for GPOEM denial ) 04/11/2025 Telephone General Surgery [place] [phone] Esau Del Toro, Medication Preauthorization (PA for Gimoti) 04/10/2025 10:00 AM EDT Office Visit General Surgery [address] [address] Esau Del Toro, Diabetic gastroparesis (HCC) (Primary Dx) 04/10/2025 9:00 AM EDT Office Visit Adult Psychology [address] [address] Courtney Flower PSYD Gastroparesis (Primary Dx); Type 2 diabetes mellitus with other specified complication, unspecified whether manager long term care insulin use (HCC) 04/10/2025 8:00 AM EDT Office Visit Gastroenterology [id number] [place], [place] [id number] Jessee Figueredo, Gastroparesis (Primary Dx) 04/10/2025 Telephone General Surgery [address] [address] Esau Del Toro DO Care Coordination (Schedule procedure and follow up appt///) 04/10/2025 Travel 04/09/2025 Patient Msg Gastroenterology [address] [address] Javi Thakkar, Research Coordinator 04/05/2025 Telephone Gastroenterology [facility] [address] [place] [address] Jessee Figueredo DO Care Coordination (Gastroparesis clinic: [...] is lower risk 8 10/24/2024 Data from: https://www.neighborhoodatlas.medicine.[facility].edu/. Last address used for calculation [address] [facility] 10/24/2024 Sex and Gender Information Value [...] 2011 Shingrix Vaccine (1 of 2) 2016 Medicare Advantage Annual We llness Visit 11/22/2024 [...] Routine 04/10/2025 11 :25 AM EDT Gastroparesis from Last 3 Months Results * PT ED PATIENT INFORMATION (04/12/2025) 04/12/2025 Narrative [facility] - 05/13/2025 Provider TRVA your patient RASHEL KINGSLEY has not started their Christ program, time has . Christ program: PATIENT SAFETY INSTRUCTIONS FOR HEALTHCARE SETTINGS us Esau Del Toro DO [facility] Final Result [facility] * PT ED DIGESTIVE DISEASE (04/12/2025) 04/12/2025 Narrative [facility] - 05/13/2025 Provider TRAV your patient RASHEL KINGSLEY has not started their Christ program, time has . Christ program: UPPER GI ENDOSCOPY (EGD) Esau Del Toro DO [facility] Final Result Performing Organization Address [facility] Co de Phone Number [facility] * CARNITINE FREE & TOTAL, PLASMA (04/10/2025 11:25 AM EDT) Pathologist [facility] Free L-carnitine 39.0 20.0 - 53.0 umol/L 04/13/2025 9:38 AM EDT [facility] Total L-carnitine 49.3 26.4 - 66.0 umol/L 04/13/2025 9:38 AM EDT [facility] Esterified L-Carnitine 10.3 3.0 - 15.6 umol/L 04/13/2025 9:38 AM EDT [facility] Esterified Carnitine / Free Carnitine Ratio 0.3 0.1 - 0.7 04/13/2025 9:38 AM EDT [facility] Comment: NOTE: The determination of the [...] determined by the Pathology and Laboratory Medicine [place] at the [facility]. The U.S. Food and Drug Administration has not approved or cleared this test, however, FDA clearance or approval is not currently required for clinical use. Blood BLOOD SPECIMEN / Unknown Venipuncture / Unknown 04/10/2025 11:25 AM EDT 04/10/2025 11:28 AM EDT Jessee Figueredo DO LABORATORY Final Result Performing Organization Address [facility]/State/ZIP Co de Phone Number [facility] [address] [facility] [address] [place] [address], [place] * (ABNORMAL) ORGANIC ACIDS UR, QUANT W/CONSULT (04/10/2025 11:25 AM EDT) Lactate, Urine 23.5 2.9 - 47.2 umol/mmo [facility] 04/13/2025 10:47 AM EDT [facility] Pyruvate, Urine 0.6 0.1 - 2.6 umol/mmo [facility] 04/13/2025 10:47 AM EDT [facility] 2-HydroxyButyrate, Urine 1.0 0.0 - 2.7 umol/mmo [facility] 04/13/2025 10:47 AM EDT [facility] Oxalic Acid, Urine 1.7 0.7 - 12.4 umol/mmo [facility] 04/13/2025 10:47 AM EDT [facility] 3-HydroxyButyrate, Urine <1.6 0.1 - 2.6 umol/mmo [facility] 04/13/2025 10:47 AM EDT [facility] 2OH-Isovalerate, Urine 0.1 0.0 - 0.1 umol/mmo [facility] 04/13/2025 10:47 AM EDT [facility] AcetoAcetate, Urine <0.9(H) 0.0 - 0.5 umol/mmo [facility] 04/13/2025 10:47 AM EDT [facility] 3-OH,2-MethylButyra te, Urine <0.6 0.0 - 1.3 umol/mmo [facility] 04/13/2025 10:47 AM EDT [facility] Malonate, Urine 0.0 0.0 - 0.1 umol/mmo [facility] 04/13/2025 10:47 AM EDT [facility] 3-HydroxyIsovalerat e, Urine 2.9 2.1 - 27.3 umol/mmo [facility] 04/13/2025 10:47 AM EDT [facility] MethylMalonate, Urine <0.4 0.0 - 0.6 umol/mmo [facility] 04/13/2025 10:47 AM EDT [facility] Benzoic Acid, Urine <12.2 0.0 - 14.6 umol/mmo [facility] 04/13/2025 10:47 AM EDT [facility] EthylMalonate, Urine 2.7 0.5 - 6.2 umol/mmo [facility] 04/13/2025 10:47 AM EDT [facility] Succinate, Urine 0.7 0.3 - 27.4 umol/mmo [facility] 04/13/2025 10:47 AM EDT [facility] MethylSuccinate, Urine 0.4 0.0 - 1.4 umol/mmo [facility] 04/13/2025 10:47 AM EDT [facility] Uracil, Urine <0.4 0.0 - 5.1 umol/mmo [facility] 04/13/2025 10:47 AM EDT [facility] Fumarate, Urine 1.9 0.3 - 2.6 umol/mmo [facility] 04/13/2025 10:47 AM EDT [facility] IsoButyrylGlycine, Ur <0.1 0.0 - 1.2 umol/mmo [facility] 04/13/2025 10:47 AM EDT [facility] Glutarate, Urine 0.1 0.0 - 1.4 umol/mmo [facility] 04/13/2025 10:47 AM EDT [facility] 3-MethylGlutarate, Urine 0.2 0.0 - 0.6 umol/mmo [facility] 04/13/2025 10:47 AM EDT [facility] ButyrylGlycine, Urine 0.0 0.0 - 0.7 umol/mmo [facility] 04/13/2025 10:47 AM EDT [facility] 2-MethylButyrylGlyc ine, Ur <0.1 0.0 - 0.4 umol/mmo [facility] 04/13/2025 10:47 AM EDT [facility] 3MethylGlutaconic Acid, Urine 0.3 0.0 - 2.0 umol/mmo [facility] 04/13/2025 10:47 AM EDT [facility] Malate, Urine 0.8 0.0 - 1.1 umol/mmo [facility] 04/13/2025 10:47 AM EDT [facility] Adipic Acid, Urine 1.3 0.3 - 9.2 umol/mmo [facility] 04/13/2025 10:47 AM EDT [facility] 2-Kpt-Cssufdy, Urine 1.5 0.4 - 3.1 umol/mmo [facility] 04/13/2025 10:47 AM EDT [facility] 3-MethylCrotonylGly cine,Urine <0.3 <0.3 umol/mmo [facility] 04/13/2025 10:47 AM [facility] 3-HydroxyGlutaric Acid, Urine 0.0 0.0 - 0.7 umol/mmo [facility] 04/13/2025 10:47 AM [facility] 2-HydroxyGlutaric Acid, Urine <0.4(L) 0.6 - 17.7 umol/mmo [facility] 04/13/2025 10:47 AM T [facility] Alpha-KetoGlutarate , Urine 6.2 0.2 - 42.7 umol/mmo [facility] 04/13/2025 10:47 AM [facility] HexanoylGlycine, Urine <0.1 0.0 - 0.1 umol/mmo [facility] 04/13/2025 10:47 AM [facility] 4-HydroxyPhenylAcet ate, Urine 10.8 5.7 - 147.5 umol/mmo [facility] 04/13/2025 10:47 AM T [facility] N-AcetylAspartic Acid, Urine 0.8 0.1 - 8.9 umol/mmo [facility] 04/13/2025 10:47 AM T [facility] Suberic Acid, Urine 0.9 0.0 - 7.4 umol/mmo [facility] 04/13/2025 10:47 AM [facility] SuccinylAcetone, Urine <0.4 <0.4 umol/mmo [facility] 04/13/2025 10:47 AM T [facility] 2-OxoAdipic Acid, Urine <1.6 0.0 - 3.3 umol/mmo [facility] 04/13/2025 10:47 AM [facility] Aconitate, Urine 19.3 8.5 - 109.6 umol/mmo [facility] 04/13/2025 10:47 AM [facility] IsoCitric Acid, Urine 62.1 9.1 - 271.9 umol/mmo [facility] 04/13/2025 10:47 AM [facility] MethylCitrate, Urine <1.1 1.0 - 13.9 umol/mmo [facility] 04/13/2025 10:47 AM [facility] Sebacic Acid, Urine <3.4(H) 0.0 - 0.3 umol/mmo [facility] 04/13/2025 10:47 AM [facility] 4-HydroxyPhenyl Lactate,Urine 20.8 1.3 - 23.0 umol/mmo [facility] 04/13/2025 10:47 AM [facility] 4-HydroxyPhenyl Pyruvate,Urine 0.0 <=0.0 umol/mmo [facility] 04/13/2025 10:47 AM [facility] N-AcetylTyrosine, Urine 0.3 0.0 - 1.2 umol/mmo [facility] 04/13/2025 10:47 AM [facility] SuberylGlycine, Ur 0.0 <=0.0 umol/mmo [facility] 04/13/2025 10:47 AM [facility] UOA Consultation 04/13/20 10:47 AM [facility] Comment: This urine organic acid [...] and its performance characteristics determined by the [facility]. It has not been cleared or approved by the US Food and Drug Administration. The FDA had determined that such clearance or approval is not necessary. UOA Review Reviewed by Forrest Gomez MD, Ph.D ([id number]) 04/13/2025 10:47 AM EDT [facility] Creatinine, Ur (Special Chem) 275.7 46.8 - 314.5 mg/dL 04/13/2025 10:47 AM EDT [facility] Urine URINE SPECIMEN / Unknown Non Blood / Unknown 04/10/2025 11:25 AM EDT 04/10/2025 11:28 AM EDT us Jessee Lissett Figueredo LABORATORY Final Result [facility] [address] * (ABNORMAL) AMINO ACIDS, PLASMA W/ CONSULTATION (04/10/2025 11:25 AM EDT) Taurine 58 54 - 210 umol/L 04/13/2025 4:21 PM EDT [facility] Aspartic Acid 3 1 - 25 umol/L 04/13/2025 4:21 PM EDT [facility] Hydroxyproline 04/13/2025 4:21 PM EDT [facility] Comment:Unable to assay. Miranda lytical difficulty Threonine 109 60 - 225 umol/L 04/13/2025 4:21 PM EDT [facility] Serine 41(L) 58 - 181 umol/L 04/13/2025 4:21 PM EDT [facility] Asparagine 31(L) 35 - 74 umol/L 04/13/2025 4:21 PM EDT [facility] Glutamic Acid 82 10 - 131 umol/L 04/13/2025 4:21 PM EDT [facility] Glutamine 478 205 - 756 umol/L 04/13/2025 4:21 PM EDT [facility] Sarcosine <2(H) <=0 umol/L 04/13/2025 4:21 PM EDT [facility] Alpha-Aminoadipic Acid <2 0 - 6 umol/L 04/13/2025 4:21 PM EDT [facility] Proline 237 97 - 329 umol/L 04/13/2025 4:21 PM EDT [facility] Glycine 125(L) 151 - 490 umol/L 04/13/2025 4:21 PM EDT [facility] Alanine 412 177 - 583 umol/L 04/13/2025 4:21 PM EDT [facility] Citrulline 38 12 - 55 umol/L 04/13/2025 4:21 PM EDT [facility] Valine 227 119 - 336 umol/L 04/13/2025 4:21 PM EDT [facility] Methionine 19 10 - 42 umol/L 04/13/2025 4:21 PM EDT [facility] Alloisoleucine <2 0 - 2 umol/L 04/13/2025 4:21 PM EDT [facility] Cystine 50 5 - 82 umol/L 04/13/2025 4:21 PM EDT [facility] Isoleucine 62 30 - 108 umol/L 04/13/2025 4:21 PM EDT [facility] Leucine 109 72 - 201 umol/L 04/13/2025 4:21 PM EDT [facility] Tyrosine 68 34 - 112 umol/L 04/13/2025 4:21 PM EDT [facility] Phenylalanine 63 35 - 85 umol/L 04/13/2025 4:21 PM EDT [facility] Hydroxylysine <2(H) <=0 umol/L 04/13/2025 4:21 PM EDT [facility] Ornithine 43(L) 48 - 195 umol/L 04/13/2025 4:21 PM EDT [facility] Lysine 143 116 - 296 umol/L 04/13/2025 4:21 PM EDT [facility] Histidine 53(L) 72 - 124 umol/L 04/13/2025 4:21 PM EDT [facility] Arginine 73 15 - 128 umol/L 04/13/2025 4:21 PM EDT [facility] Amino Acids Review, Plasma Reviewed by Forrest Gomez MD, Ph.D ([id number]) 04/13/2025 4:21 PM EDT [facility] Amino Acid Consultation, Plasma 04/13/2025 4:21 PM EDT [facility] Comment: This plasma amino acid analysis is mainly notable for low levels of serine and glycine. Low levels of plasma serine and glycine is potentially related to the patient's clinical history of diabetes. Reference intervals from Jovani E, Pat MG, Amarjit MANDEEP, and Anderson DK: Biochemical Genetics: A Laboratory Manual, Copyright 1989 by [employer] Reference intervals not established for some amino acids. This test was developed and its performance characteristics determined by the [facility] Department of Pathology and Laboratory Medicine. It has not been cleared or approved by the FDA. The [facility] Department of Pathology and Laboratory Medicine is regulated under CLIA as qualified to perform high- complexity testing. This test is used for clinical purposes. It should not be regarded as investigational or for research. Blood BLOOD SPECIMEN / Unknown Venipuncture / Unknown 04/10/2025 11:25 AM EDT 04/10/2025 11:28 AM EDT [facility] Final Result Performing Organization Address [facility]/ZIP Co de Phone Number [facility] [address] [address], [place] * CREATININE (SPECIAL CHEM) (04/10/2025 11:25 AM EDT) Urine URINE SPECIMEN / Unknown Non Blood / Unknown 04/10/2025 11:25 AM EDT 04/10/2025 11:28 AM EDT [facility] Final Result Performing Organization Address [facility]/ZIP Co de Phone Number [facility] [address] [address], [place] * VOLTAGE-GATED POTASSIUM SZYMANSKI AB (04/10/2025 11:25 AM EDT) VOLTAGE-GATED POTASSIUM CHANNEL AB, SER 0 0 - 31 pmol/L 04/12/2025 1:52 PM EDT [facility] [employer] [employer] Comment: INTERPRETIVE INFORMATION: Voltage-Gated Potassium Channel (VGKC) [...] developed and its performance characteristics determined by [facility]. It has not been cleared or approved by the US Food and Drug Administration. This test was performed in a CLIA certified laboratory and is intended for clinical purposes. Performed By: [facility] [address] [place] [id number] Scheduler Maintenance: Warren Simmons MD, PhD CLIA Number: [id number] Blood BLOOD SPECIMEN / Unknown Venipuncture / Unknown 04/10/2025 11:25 AM EDT 04/10/2025 11:28 AM EDT us Jessee Figueredo DO LABORATORY Final Result [facility] [employer] [address] [place] [phone] * ACETYLCHOLINE REC BINDING AB (04/10/2025 11:25 AM EDT) Acetylcholine, Binding, Qual Negative Negative 04/11/2025 4:13 PM EDT [facility] Comment:Anti-acetylcholine r eceptor binding antibody test is used as an aid in diagnosis of myasthenia gravis. A negative result cannot exclude myasthenia gravis. Clinical correlation is required. Acetylcholine Receptor Binding <0.02 <0.21 nmol/L 04/11/2025 4:13 PM EDT [facility] Blood BLOOD SPECIMEN / Unknown Venipuncture / Unknown 04/10/2025 11:25 AM EDT 04/10/2025 11:28 AM EDT Jessee Figueredo LABORATORY Final Result [facility] [place] [address], [place] * VOLTAGE GATED CA IGG (04/10/2025 11:25 AM EDT) P/Q-Type Calcium Channel Antibody 0.0 0.0 - 24.5 pmol/L 04/12/2025 7:03 PM EDT [employer] Comment: INTERPRETIVE INFORMATION: P/Q-Type Calcium Channel Antibody 0.0 to 24.5 pmol/L ............. Negative 24.6 to 45.6 pmol/L ............ Indeterminate 45.7 pmol/L or greater.......... Positive This test was developed and its performance characteristics determined by [facility]. It has not been cleared or approved by the US Food and Drug Administration. This test was performed in a CLIA certified laboratory and is intended for clinical purposes. Performed By: [facility] [address] [place] [address] Scheduler Maintenance: Warren Simmons MD, PhD CLIA Number: [id number] Blood BLOOD SPECIMEN / Unknown Venipuncture / Unknown 04/10/2025 11:25 AM EDT 04/10/2025 11:28 AM EDT Jessee Figueredo LABORATORY Final Result Performing Organization Address City/[facility]/ZIP Co de Phone Number [address] [address] * LACTATE DEHYDROGENASE (04/10/2025 11:25 AM EDT) [facility] LD 159 135 - 225 U/L 04/10/2025 9:52 PM EDT [facility] Blood BLOOD SPECIMEN / Unknown Venipuncture / Unknown 04/10/2025 11:25 AM EDT 04/10/2025 11:28 AM EDT [facility] LABORATORY Final Result Performing Organization Address [facility] Co de Phone Number [facility] [address] [place] [address], [place] * GLUTAMIC AC DECARBOXYLASE AB (04/10/2025 11:25 AM EDT) [facility] Glutamic Acid Decarboxylas Ab Qualitative Negative Negative 04/13/2025 2:30 PM EDT [facility] Glutamic Acid Decarboxylase Ab <5.0 <=5.0 IU/mL 04/13/2025 2:30 PM EDT [facility] Comment:Anti-glutamic acid d ecarboxylase antibody (GAD65) [...] 11:25 AM EDT 04/10/2025 11:28 AM EDT [facility] LABORATORY Final Result Performing Organization Address [facility]/ZIP Co de Phone Number [facility] [address] [place] [address], [place] * (ABNORMAL) SEDIMENTATION RATE, WESTERGREN (04/10/2025 11:25 AM EDT) Sed Rate, Westergren 66(H) 0 - 15 mm/hr 04/10/2025 6:12 PM EDT [facility] Blood BLOOD SPECIMEN / Unknown Venipuncture / Unknown 04/10/2025 11:25 AM EDT 04/10/2025 11:28 AM EDT [facility] S Figueredo LABORATORY Final Result Performing Organization Address City/[facility]/ZIP Co de Phone Number [facility] [address] [address], [place] * PYRUVATE+LACTATE BL (04/10/2025 11:25 AM EDT) Lactate 2.1 0.5 - 2.2 mmol/L 04/11/2025 10:31 PM EDT [facility] Comment:This test was develo ped, and its performance characteristics determined by the [facility] Department of Pathology and Laboratory Medicine. It has not been cleared or approved by the FDA. The [facility] Department of Pathology and Laboratory Medicine is regulated under CLIA as qualified to perform high- complexity testing. This test is used for clinical purposes. It should not be regarded as investigational or for research. Pyruvic Acid 0.05 0.03 - 0.10 mmol/L 04/11/2025 10:31 PM EDT [facility] Comment:This test was develo ped, and its performance characteristics determined by the [facility] Department of Pathology and Laboratory Medicine. It has not been cleared or approved by the FDA. The [facility] Department of Pathology and Laboratory Medicine is regulated under CLIA as qualified to perform high- complexity testing. This test is used for clinical purposes. It should not be regarded as investigational or for research. Blood BLOOD SPECIMEN / Unknown Venipuncture / Unknown 04/10/2025 11:25 AM EDT 04/10/2025 11:28 AM EDT Jessee S Figueredo DO LABORATORY Final Result Performing Organization Address City/[facility]/ZIP Co de Phone Number [facility] [address] [place] [address], [place] * IMMUNOGLOBULIN M (04/10/2025 11:25 AM EDT) IgM 110 40 - 230 mg/dL 04/10/2025 8:58 PM EDT [facility] Blood BLOOD SPECIMEN / Unknown Venipuncture / Unknown 04/10/2025 11:25 AM EDT 04/10/2025 11:28 AM EDT Jessee Figueredo LABORATORY Final Result [facility] [address] [place] [id number], [place] * (ABNORMAL) IMMUNOGLOBULIN G (04/10/2025 11:25 AM EDT) IgG 3,158(H) 700 - 1,600 mg/dL 04/10/2025 8:58 PM EDT [facility] Blood BLOOD SPECIMEN / Unknown Venipuncture / Unknown 04/10/2025 11:25 AM EDT 04/10/2025 11:28 AM EDT Jessee Figueredo DO LABORATORY Final Result Performing Organization Address [facility] Co de Phone Number [facility] [address] [place] [phone], [place] * (ABNORMAL) IMMUNOGLOBULIN A (04/10/2025 11:25 AM EDT) IgA 608(H) 70 - 400 mg/dL 04/10/2025 8:58 PM EDT [facility] Blood BLOOD SPECIMEN / Unknown Venipuncture / Unknown 04/10/2025 11:25 AM EDT 04/10/2025 11:28 AM EDT Jessee Figueredo LABORATORY Final Result Performing Organization Address City/[facility]/ZIP Co de Phone Number [facility] [address] [place] [phone], [place] * (ABNORMAL) HEMOGLOBIN A1C (04/10/2025 11:25 AM EDT) Hemoglobin A1C 11.0(H) 4.3 - 5.6 % 04/10/2025 9:27 PM EDT [facility] Comment:[place] Diabetes As sociation guidelines indicate that patients with HgbA1c in the range 5.7-6.4% are at increased risk for development of diabetes, and intervention by lifestyle modification may be beneficial. HgbA1c greater or equal to 6.5% is considered diagnostic of diabetes. Estimated Average Glucose 269 mg/dL 04/10/2025 9:27 PM EDT [facility] Comment:eAG: (Estimated aver age glucose) is a calculated value from HgbA1c and is retail sales representative of the average blood glucose level in the last 2-3 month period. Blood BLOOD SPECIMEN / Unknown Venipuncture / Unknown 04/10/2025 11:25 AM EDT 04/10/2025 11:28 AM EDT [facility] LABORATORY Final Result [facility] [address] [place] [address], [place] * (ABNORMAL) CREATINE KINASE/CK (04/10/2025 11:25 AM EDT) [facility] CK 41(L) 51 - 298 U/L 04/10/2025 1:02 PM EDT [facility] Blood BLOOD SPECIMEN / Unknown Venipuncture / Unknown 04/10/2025 11:25 AM EDT 04/10/2025 11:28 AM EDT Jessee Figueredo DO LABORATORY Final Result [facility] [address] [place] [address], [place] * (ABNORMAL) C-REACTIVE PROTEIN (04/10/2025 11:25 AM EDT) Pathologist [facility] CRP 2.7(H) <0.9 mg/dL 04/10/2025 1:02 PM EDT [facility] Blood BLOOD SPECIMEN / Unknown Venipuncture / Unknown 04/10/2025 11:25 AM EDT 04/10/2025 11:28 AM EDT Jessee Figueredo DO LABORATORY Final Result [facility] [address] [place] [id number], [place] from Last 3 Months Insurance [employer] MED[employer]ARE
--- NOTE | 2025-06-20 15:41 | XR_ITS ---
The [address] [address] Patient Name: MORE KINGSLEY MRN: [id number] date: 1965 Sex: M Assigned Patient Location: ER Current Patient Location: Accession/Order Number: [id number] Exam Date: 06/20/2025 16:32 Report Date: 06/20/2025 16:32 At the request of: ALFRED ASHLEY MD Procedure: XR chest 1V Single view chest: CLINICAL HISTORY: Sepsis COMPARISON: Chest 03/18/2023 FINDINGS: The heart is normal in size. The lungs are clear. The pulmonary vasculature is normal. Mediastinum and hilar regions are unremarkable. No pleural effusions are seen. Visualized bones are intact. XR/XR chest 1V IMPRESSION: NEGATIVE CHEST. Impression dictated by: Nam Pedro Jr. DFrankieOFrankie 06/20/2025 4:32 PM Dictation Location: [place] [address] Electronically authenticated by: [id number] Y Date: 06/20/2025 16:32
--- NOTE | 2025-06-20 15:41 | XR_ITS ---
The [address] [address] Patient Name: MORE KINGSLEY MRN: [id number] date: 1965 Sex: M Assigned Patient Location: ER Current Patient Location: Accession/Order Number: [id number] Exam Date: 06/20/2025 16:32 Report Date: 06/20/2025 16:33 At the request of: ALFRED ASHLEY MD Procedure: XR foot RT min 3V RIGHT FOOT - 3 views CLINICAL HISTORY: sepsis COMPARISON: Right foot series 06/07/2025 FINDINGS: Amputation changes with soft tissue thickening/edema grossly unchanged in configuration compared to the prior study. Plantar spurring. Degenerative changes involving the ankle mortise. No acute bony process or definitive plain film evidence of osteomyelitis. XR/XR foot RT min 3V IMPRESSION: AMPUTATION CHANGES SIMILAR TO THE PRIOR STUDY. NO ACUTE BONY PROCESS OR DEFINITIVE PLAIN FILM EVIDENCE OF OSTEOMYELITIS. Impression dictated by: Nam Pedro Jr., D.O. 06/20/2025 4:33 PM Dictation Location: [place] [address] Electronically authenticated by: [id number] Y Date: 06/20/2025 16:33
--- NOTE | 2025-06-20 15:54 | ED.GENADUL1 ---
HPI HPI - General Adult General Chief complaint: Extremity Injury, Lower Stated complaint: LOWER EXTREMITY WOUND Time Seen by Provider: 06/20/25 15:40 Source: patient Mode of arrival: walk-in Limitations: no limitations History of Present Illness HPI narrative: Patient is a 59-year-old male who is presenting to the ER from Dr. Stephenson's office. Patient was sent from Dr. Stephenson's office to be admitted for IV antibiotics and further monitoring. Patient currently has no fever or chills. Patient has been noted to be hypotensive. Patient does have cardiac history. Patient does not have his left foot secondary to infection. Patient is missing his toes on the right foot, he has none left. Patient has open sores to the base of his right foot. Patient has no circumferential erythema, cellulitis. No chest pain or shortness of breath. No abdominal pain nausea vomiting. Patient states he has feeling to the right foot, but he currently has no pain. Patient is a type II diabetic, he is on insulin. All systems are negative except as noted/marked. All systems reviewed and otherwise negative. Nurses note and vital signs reviewed and patient is not hypoxic. General: The patient appears well and in no apparent distress. Patient is resting comfortably on cart. Patient is not toxic, lethargic, or listless Skin: Warm, dry, no pallor noted. There is no rash noted. No petechiae, purpura. Patient has open ulcerations to the distal base of the right foot. Patient has no active drainage. Wounds were looked and dressed in Dr. Stephenson office Head: Normocephalic, atraumatic Eye: Normal conjunctiva, no drainage, EOMI. PERRL Ears, Nose, Mouth, and Throat: oral mucosa is moist. Nares patent. Mouth without vesicles. Cardiovascular: Regular Rate and Rhythm, no murmur, gallop, rub Respiratory: Patient is in no distress, no accessory muscle use, lungs are clear to auscultation, no wheezing, rales or rhonchi Back: non-tender, no CVA tenderness bilaterally to percussion. No CT LS midline pain GI: Soft, obese, no tenderness to palpation, no masses appreciated. No rebound, guarding, or rigidity noted. No distention Musculoskeletal: Patient has full range of motion of all of the extremities, no motor, sensory, or focal neurological deficits. 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 Patient has no toes on the right foot, see skin assessment. Patient had no encompassing cellulitis of the right foot, streaking, or signs of lymphangitis. Neurological: A&O x4, normal speech Psychiatric: Cooperative Related Data Home Medications ?Medication ?Instructions ?Recorded ?Confirmed atorvastatin 40 mg tablet 40 mg PO DAILY 06/20/25 06/20/25 blood-glucose meter (Accu-Chek 06/20/25 06/20/25 Guide Glucose Meter) celecoxib 100 mg capsule 100 mg PO DAILY 06/20/25 06/20/25 hydrochlorothiazide 12.5 mg tablet 12.5 mg PO DAILY 06/20/25 06/20/25 insulin glargine 100 unit/mL (3 30 unit subcut BID 06/20/25 06/20/25 mL) subcutaneous pen (Lantus Solostar U-100 Insulin) insulin lispro 100 unit/mL 2 - 14 sliding scale dose subcut 06/20/25 06/20/25 subcutaneous pen (Admelog SoloStar ACHS U-100 Insulin lispro) latanoprost 0.005 % eye drops 1 drp ophthalmic (eye) .QHS 06/20/25 06/20/25 lisinopril 10 mg tablet 10 mg PO DAILY 06/20/25 06/20/25 pantoprazole 40 mg tablet,delayed 40 mg PO DAILY 06/20/25 06/20/25 release Allergies Allergy/AdvReac Type Severity Reaction Status Date / Time venom-honey bee Allergy Anaphylaxis Verified 06/20/25 16:33 Opioid HPI Opioid Management Most Recent Opioid Data: Last Pain Assessment Today, 18:00 Last ORT Total Score 0 Today, 17:37 Last ORT Risk Category Low Risk Today, 17:37 [facility] Medical History (Updated 06/20/25 @ 17:44 by Lucrecia Charles) Hyperlipidemia ?E78.5 - Hyperlipidemia, unspecified (ICD-10) Hypertension ?I10 - Essential (primary) hypertension (ICD-10) Diabetes mellitus ?E11.9 - Type 2 diabetes mellitus without complications (ICD-10) Surgical History (Updated 06/20/25 @ 17:44 by Lucrecia Charles) History of tonsillectomy ?Z90.89 - Acquired absence of other organs (ICD-10) History of transmetatarsal amputation of right foot ?Z89.431 - Acquired absence of right foot (ICD-10) History of transmetatarsal amputation of left foot ?Z89.432 - Acquired absence of left foot (ICD-10) Family History (Updated 06/20/25 @ 17:44 by Lucrecia Charles) Other Family history of CHF (congestive heart failure) Family history of diabetes mellitus Social History (Updated 06/20/25 @ 17:44 by Lucrecia Charles) Within the past year, how often did you have a drink containing alcohol: never Score interpretation: A score less than 4 is consistent with normal alcohol consumption. Smoking status: Never smoker Non-prescribed substance use: denies use Highest level of school completed/degree received: some college, no degree Little interest or pleasure in doing things: not at all Feeling down, depressed, or hopeless: not at all Exam Constitutional Vital Signs, click to edit/add: Last Vital Signs Temp 98.4 F 06/20/25 19:42 Pulse 89 06/20/25 20:01 Resp 16 06/20/25 19:42 BP 108/76 06/20/25 19:42 Pulse Ox 97 06/20/25 20:01 O2 Del Method Room Air 06/20/25 19:42 Course Vital Signs Vital signs: Vital Signs Temperature 97.9 F 06/20/25 13:59 Pulse Rate 103 H 06/20/25 13:59 Respiratory Rate 18 06/20/25 13:59 Blood Pressure 84/62 L 06/20/25 13:59 Pulse Oximetry 97 06/20/25 13:59 Oxygen Delivery Method Room Air 06/20/25 13:59 Temperature 98.4 F 06/20/25 19:42 Pulse Rate 89 06/20/25 20:01 Respiratory Rate 16 06/20/25 19:42 Blood Pressure 108/76 06/20/25 19:42 Pulse Oximetry 97 06/20/25 20:01 Oxygen Delivery Method Room Air 06/20/25 19:42 Medical Decision Making [facility] Narrative Medical decision making narrative: Patient seen and examined: Sepsis workup was initiated, IV Zosyn and IV vancomycin will be started. Differential diagnosis includes but is not limited to: Diagnostics and management: Patient will have laboratory studies Relevant laboratory interpretation: Patient had no elevation of white blood cells, significantly elevated sed rate and CRP, sed rate greater than 130, BUN/creatinine 32/2.2. Glucose 453, lactate 2.4, Radiological studies: Please see the formal radiological report. IMPRESSION: AMPUTATION CHANGES SIMILAR TO THE PRIOR STUDY. NO ACUTE BONY PROCESS OR DEFINITIVE PLAIN FILM EVIDENCE OF OSTEOMYELITIS. Reevaluation: Shared decision making: I discussed with the patient the necessary laboratory findings and radiological findings. Social barriers to healthcare: There are no food insecurities, there is no issue with transportation, there are no insurance barriers. Disposition: I discussed with the patient admission. Patient has failed outpatient treatment. Patient was given 1 L of lactated Ringer's, started on IV Zosyn and vancomycin. Patient will be admitted to hospitalist Dr Caballero with Dr. Stephenson in consultation. Lab Data Labs: Lab Results 06/20/25 06/20/25 06/20/25 Range/Units 15:25 15:52 16:00 WBC 8.9 (4.0-11.0) 10^3/uL RBC 5.14 (4.70-6.10) 10^6/uL Hgb 13.9 L (14.0-18.0) g/dL Hct 41.9 L (42.0-54.0) % MCV 81.5 (80.0-94.0) fL MCH 27.0 (25.9-34.0) pg MCHC 33.2 (29.9-35.2) g/dL RDW 14.4 (11.0-15.0) % Plt Count 313 (150-450) 10^3/uL MPV 10.2 (9.5-13.5) fL Neut % (Auto) 69.0 (43.0-75.0) % Lymph % (Auto) 19.1 L (20.5-60.0) % [place] % (Auto) 8.6 (1.7-12.0) % Eos % (Auto) 1.8 (0.9-7.0) % Baso % (Auto) 1.2 (0.2-2.0) % Neut # (Auto) 6.2 (1.4-6.5) 10^3/uL Lymph # (Auto) 1.7 (1.2-3.8) 10^3/uL [place] # (Auto) 0.8 (0.3-0.8) 10^3/uL Eos # (Auto) 0.2 (0.0-0.7) 10^3/uL Baso # (Auto) 0.1 (0.0-0.1) 10^3/uL Abs Immat Gran (auto) 0.03 (0.00-0.03) 10^3/uL Imm/Tot Granulo (auto) 0.3 (0.0-0.5) % ESR >130 H (<=20) mm/hr PT 11.0 (9.0-11.6) sec INR 1.04 VBG pH 7.381 (7.330-7.430) VBG pCO2 46.4 (40.0-52.0) mmHg Sodium 131 L (136-145) mmol/L Potassium 4.6 (3.5-5.1) mmol/L Chloride 95 L (98-107) mmol/L Carbon Dioxide 25.9 (21.0-32.0) mmol/L Anion Gap 14.7 BUN 32.0 H (7.0-18.0) mg/dL Creatinine 2.23 H (0.70-1.30) mg/dL Est GFR ( Amer) 37 L (>=60 mL/min/1.73m^2) Est GFR (Non-Af Amer) 30 L (>=60 mL/min/1.73m^2) BUN/Creatinine Ratio 14.3 Glucose 453 H (74-106) mg/dL Estimat Average Glucose 306 mg/dL Hemoglobin A1c 12.3 H (4.5-6.2) % Lactate 2.2 H* (0.4-2.0) mmol/L Calcium 9.2 (8.5-10.1) mg/dL Magnesium 2.0 (1.8-2.4) mg/dL Total Bilirubin 0.8 (0.2-1.0) mg/dL AST 16 (15-37) U/L ALT 20 (16-63) U/L Alkaline Phosphatase 125 H (46-116) U/L Troponin I High Sens <4.0 L (4.0-76.1) pg/mL C-Reactive Protein 6.70 H (<=0.50) mg/dL NT-Pro-B Natriuret Pep 109.0 (<=900.0) pg/mL Total Protein 9.8 H (6.4-8.2) g/dL Albumin 2.8 L (3.4-5.0) g/dL Globulin 7.0 g/dL Albumin/Globulin Ratio 0.4 POC Glucose 390 H (74-106) mg/dL Blood Type O Negative Antibody Screen Negative Discharge Plan Discharge Chief Complaint: Extremity Injury, Lower Clinical Impression: Diabetic infection of right foot Patient Disposition: Admitted As Inpatient Condition: Fair Discharge Date/Time: 06/20/25 17:20
[2025-06-20 15:55] LABS: Hematocrit 41.9 % (42.0-54.0); Hemoglobin 13.9 g/dL (14.0-18.0); Immature Granulocytes Abs Auto 0.03 10^3/uL (0.00-0.03); Immature Granulocytes Pct Auto 0.3 % (0.0-0.5); Lymphocytes Absolute Auto 1.7 10^3/uL (1.2-3.8); Mean Corpuscular HGB Conc 33.2 g/dL (29.9-35.2); Mean Corpuscular Hemoglobin 27.0 pg (25.9-34.0); Mean Corpuscular Volume 81.5 fL (80.0-94.0); Platelet Count 313 10^3/uL (150-450); Red Blood Count 5.14 10^6/uL (4.70-6.10); White Blood Count 8.9 10^3/uL (4.0-11.0)
[2025-06-20 15:59] LABS: INR 1.04; Prothrombin Time 11.0 sec (9.0-11.6)
[2025-06-20 16:13] LABS: PCO2 VBG 46.4 mmHg (40.0-52.0); pH VBG 7.381 (7.330-7.430)
[2025-06-20 16:13] LABS: Alanine Aminotransferase 20 U/L (16-63); Albumin Globulin Ratio 0.4; Albumin Level 2.8 g/dL (3.4-5.0); Alkaline Phosphatase 125 U/L (46-116); Anion Gap 14.7; Aspartate Amino Transferase 16 U/L (15-37); Blood Urea Nitrogen 32.0 mg/dL (7.0-18.0); Calcium 9.2 mg/dL (8.5-10.1); Carbon Dioxide 25.9 mmol/L (21.0-32.0); Chloride 95 mmol/L (98-107); Estimated GFR (African America 37 (>=60 mL/min/1.73m^2); Estimated GFR (Non-African Ame 30 (>=60 mL/min/1.73m^2); Globulin 7.0 g/dL; Glucose 453 mg/dL (74-106); Magnesium 2.0 mg/dL (1.8-2.4); NT Pro B Type Natriuretic Pept 109.0 pg/mL (<=900.0); Potassium 4.6 mmol/L (3.5-5.1); Sodium 131 mmol/L (136-145); Total Protein 9.8 g/dL (6.4-8.2)
[2025-06-20 16:17] LABS: Lactate/Lactic Acid 2.2 mmol/L (0.4-2.0)
--- NOTE | 2025-06-20 16:24 | PM.IMHP1 ---
Internal Medicine - H&P: HPI History of Present Illness Chief complaint: LOWER EXTREMITY WOUND Narrative: This is a 59 y.o male with past medical Hx of type 2 diabetes, dyslipidemia, HTN, GERD, PAD, diabetic neuropathy, CHF on Lasix?, hx of Diabetic foot infection with bilateral foot amputation, here for worsening infection involving his right foot. Hx obtained from pt at bedside and ED staff . Pt states that he has been dealing with his right foot infection for 2 and half months, with an open wound invloving ths sole of his right foot and dorsum of his right foot as well, was on augmentin for 2 months, finished it a week ago, when symptoms of pain over his right ankle and swelling came back, states that he feels this is similar to when he had his bilateral feet amputated. Denies any fever or chills, nausea, vomiting. States he does not actually have pain in his foot and he is able to bear weight, he saw his wood floor layer today and was asked to come to the ED for IV antibiotics and podiatry evaluation. In the ED, CBC did not show leukocytosis, and CMP showed BUN/Cr of 32/2.23 with elevated blood glucose of 453, lactic acid of 2.2. Pt is afebrile in the ED, with BP in 80s/60s later on improved to 116/89 when I saw him with IV fluid resuscitation. Pt received 1 dose of Zosyn 4.5 grams and 1 dose of Vancomycin 1750 mg once. Also received 1 liter LR IV bolus once. Review of Systems ROS Status of ROS 10 or more systems reviewed and unremarkable except as noted in history and below PFSH PFSH Social History Little interest or pleasure in doing things: not at all Feeling down, depressed, or hopeless: not at all Meds Home Medications and Allergies Home Medications ?Medication ?Instructions ?Recorded ?Confirmed ?Type atorvastatin 40 mg tablet 40 mg PO DAILY 06/20/25 06/20/25 History blood-glucose meter (Accu-Chek 06/20/25 06/20/25 History Guide Glucose Meter) celecoxib 100 mg capsule 100 mg PO DAILY 06/20/25 06/20/25 History hydrochlorothiazide 12.5 mg tablet 12.5 mg PO DAILY 06/20/25 06/20/25 History insulin glargine 100 unit/mL (3 30 unit subcut BID 06/20/25 06/20/25 History mL) subcutaneous pen (Lantus Solostar U-100 Insulin) insulin lispro 100 unit/mL 2 - 14 sliding scale dose subcut 06/20/25 06/20/25 History subcutaneous pen (Admelog SoloStar ACHS U-100 Insulin lispro) latanoprost 0.005 % eye drops 1 drp ophthalmic (eye) .QHS 06/20/25 06/20/25 History lisinopril 10 mg tablet 10 mg PO DAILY 06/20/25 06/20/25 History pantoprazole 40 mg tablet,delayed 40 mg PO DAILY 06/20/25 06/20/25 History release Allergies Allergy/AdvReac Type Severity Reaction Status Date / Time venom-honey bee Allergy Anaphylaxis Verified 06/20/25 16:33 Exam Narrative Exam Narrative: General: The patient appears well and in no apparent distress. Patient is resting comfortably. Patient is not toxic, lethargic. Pleasant and cooperative. Skin: Warm, dry, no pallor noted. There is no rash noted. No petechiae, purpura Head: Normocephalic, atraumatic Eye: Normal conjunctiva, no drainage, EOMI. PERRL Ears, Nose, Mouth, and Throat: oral mucosa is moist. Nares patent. Mouth without vesicles. Cardiovascular: Regular Rate and Rhythm, no murmur, gallop, rub Respiratory: Patient is in no distress, no accessory muscle use, lungs are clear to auscultation, no wheezing, rales or rhonchi Back: non-tender, no CVA tenderness bilaterally to percussion. No CT LS midline pain GI: Soft, obese, no tenderness to palpation, no masses appreciated. No rebound, guarding, or rigidity noted. No distention Musculoskeletal: Patient has full range of motion of all of the extremities, no motor, sensory, or focal neurological deficits. 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 Patient has no toes on the right foot, Patient has open ulcerations to the distal base of the right foot. Patient has no active drainage. intact peripheral pulses Neurological: A&O x4, normal speech, no focal sensory or motor deficits Constitutional Vital Signs, click to edit/add: Last Vital Signs Temp 97.9 F 06/20/25 13:59 Pulse 103 H 06/20/25 13:59 Resp 18 06/20/25 13:59 BP 84/62 L 06/20/25 13:59 Pulse Ox 97 06/20/25 13:59 O2 Del Method Room Air 06/20/25 13:59 Internal Medicine - H&P: Reslt Labs Labs: Short CBC 06/20/25 Range/Units 15:25 WBC 8.9 (4.0-11.0) 10^3/uL Hgb 13.9 L (14.0-18.0) g/dL Hct 41.9 L (42.0-54.0) % Plt Count 313 (150-450) 10^3/uL BMP 06/20/25 15:25 Sodium 131 L Potassium 4.6 Chloride 95 L Carbon Dioxide 25.9 BUN 32.0 H Creatinine 2.23 H Glucose 453 H Calcium 9.2 Liver Function 06/20/25 Range/Units 15:25 Total Bilirubin 0.8 (0.2-1.0) mg/dL AST 16 (15-37) U/L ALT 20 (16-63) U/L Alkaline Phosphatase 125 H (46-116) U/L Albumin 2.8 L (3.4-5.0) g/dL Assessment and Plan Assessment and Plan (1) Diabetic infection of right foot: Plan Severe sepsis in the setting of Right diabetic foot infection, in the setting of uncontrolled type 2 diabetes and diabetic neuropathy/vasculopathy CKD, questionable LYNDA? -Admit pt to medical floor with telemetry -Start Vancomycin and Zosyn IV to be dosed by pharmacy -Obtain repeat lactic acid -Obtain ESR, CRP, and trend inflammatory markers -Wound care consult -PT/OT eval -Podiatry consult, already aware of the pt and they sent him to the ED -Start NS 50 ml/hr for a total of 1 liter, and reassess his renal panel tomorrow in am -DVT and GI PPx addressed -Discussed the plan with the pt in details. Answered all his questions.
[2025-06-20] MEDS: PIPERACILLIN SODIUM/TAZOBACTAM 4.5 GM in 0.9 % SODIUM CHLORIDE 50 ML IV (16:35)
--- NOTE | 2025-06-20 17:27 | PHOTOS ---
right medial foot
[2025-06-20] MEDS: VANCOMYCIN HCL 1,750 MG in 0.9 % SODIUM CHLORIDE 500 ML 250 MG IV (17:30)
--- NOTE | 2025-06-20 18:28 | DIETREC ---
Recommend 1800 kcal CCD diet.
[2025-06-20] MEDS: 0.9 % SODIUM CHLORIDE 1,000 ML 50 ML IV (18:32)
[2025-06-20 19:03] LABS: Lactate/Lactic Acid 2.4 mmol/L (0.4-2.0)
[2025-06-20] MEDS: HEPARIN SODIUM (PORCINE) 5,000 UNIT/ML VIAL 5000 UNIT SUBQ (20:18)
[2025-06-20] MEDS: INSULIN GLARGINE 300 UNIT/3 ML INSULN.PEN 30 UNIT SQ (20:21)
[2025-06-20] MEDS: LATANOPROST 0.005% 2.5 ML BOTTLE 1 DROP OP (21:23)
[2025-06-20] MEDS: INSULIN ASPART 300 UNIT/3 ML PEN SUBQ (21:24)
[2025-06-20] MEDS: PIPERACILLIN SODIUM/TAZOBACTAM 3.375 GM in 0.9 % SODIUM CHLORIDE 50 ML IV (23:23)
[2025-06-21] VITALS (21 sets, daily range): BP systolic 95–130; BP diastolic 67–88; PULSE 75–97; TEMP 36.4–36.7; O2SAT 93–98
--- NOTE | 2025-06-21 | MR_ITS ---
The [address] [address] Patient Name: MORE KINGSLEY MRN: [id number] date: 1965 Sex: M Assigned Patient Location: [place] Current Patient Location: [place] Accession/Order Number: [id number] Exam Date: 06/21/2025 12:24 Report Date: 06/21/2025 12:33 At the request of: THEA CLARK MD Procedure: MR foot RT wo con MR foot RT wo con 06/21/2025 12:06 PM SIGNS AND SYMPTOMS: right diabetic foot infection along the plantar and medial aspect of the right foot. PROTOCOL: Multiplanar multisequence MR images of the right foot without contrast COMPARISON: 06/20/2025 FINDINGS: Lisfranc ligament: Intact. Hallux: Amputated. Second ray: Osseous: Partially amputated. Mild edema is noted along the second metatarsal remnant anteriorly suspicious for osteomyelitis. Third ray: Osseous: Partially amputated.Mild edema is noted along the third metatarsal remnant anteriorly suspicious for osteomyelitis. Fourth ray: Osseous: Partially amputated. Fifth ray: Osseous: Partially amputated. Soft tissues: There is soft tissue ulceration along the plantar aspect of the foot medially with accompanying soft tissue edema suggesting the presence of a diabetic ulcer as queried in the history. Edema indicates cellulitis. Muscles: Normal. Bones: Normal. Nerves: Normal. Blood vessels: Normal. MR/MR foot RT wo con IMPRESSION: Mild edema is noted along the second and third metatarsal remnant anteriorly suspicious for osteomyelitis. Soft tissue ulceration and adjacent cellulitis are noted along the plantar and anterior aspect of the medial right foot. No evidence of abscess. Impression dictated by: Blair Kidd M.D. 06/21/2025 12:33 PM Dictation Location: [place] [address] Electronically authenticated by: [id number] Y Date: 06/21/2025 12:33
[2025-06-21 05:44] LABS: Hematocrit 36.9 % (42.0-54.0); Hemoglobin 12.3 g/dL (14.0-18.0); Immature Granulocytes Abs Auto 0.04 10^3/uL (0.00-0.03); Immature Granulocytes Pct Auto 0.5 % (0.0-0.5); Lymphocytes Absolute Auto 1.9 10^3/uL (1.2-3.8); Mean Corpuscular HGB Conc 33.3 g/dL (29.9-35.2); Mean Corpuscular Hemoglobin 27.2 pg (25.9-34.0); Mean Corpuscular Volume 81.5 fL (80.0-94.0); Platelet Count 262 10^3/uL (150-450); Red Blood Count 4.53 10^6/uL (4.70-6.10); White Blood Count 7.5 10^3/uL (4.0-11.0)
[2025-06-21 06:11] LABS: Alanine Aminotransferase 17 U/L (16-63); Albumin Globulin Ratio 0.4; Albumin Level 2.4 g/dL (3.4-5.0); Alkaline Phosphatase 107 U/L (46-116); Anion Gap 12.2; Aspartate Amino Transferase 16 U/L (15-37); Blood Urea Nitrogen 26.0 mg/dL (7.0-18.0); Calcium 8.6 mg/dL (8.5-10.1); Carbon Dioxide 26.7 mmol/L (21.0-32.0); Chloride 101 mmol/L (98-107); Estimated GFR (African America 56 (>=60 mL/min/1.73m^2); Estimated GFR (Non-African Ame 46 (>=60 mL/min/1.73m^2); Globulin 6.3 g/dL; Glucose 171 mg/dL (74-106); Magnesium 1.9 mg/dL (1.8-2.4); Potassium 3.9 mmol/L (3.5-5.1); Sodium 136 mmol/L (136-145); Total Protein 8.7 g/dL (6.4-8.2)
--- NOTE | 2025-06-21 06:46 | PM.CN ---
Consult Note: [facility] Data of Consult Consult date: 06/21/25 Requesting Physician: Sue Caballero Primary Care Provider: Jessee Molina DO Consult Narrative Reason for consult: Right diabetic foot infection Narrative: Mr Rodriguez is a 59-year-old male with poorly controlled type 2 diabetes (hemoglobin A1c 12.3) and history of left BKA and right midfoot amputation. He was seen in our wound center yesterday for nonhealing ulcerations on plantar and medial right foot associate with localized cellulitis. At that appointment he was slightly hypotensive and tachycardic and overall not feeling well. Debridement was performed at that time and no abscess was appreciated but given his systemic signs of infection was sent to the emergency department for further workup. Labs upon admission showed lactate of 2.2, no leukocytosis, severe elevation in inflammatory markers and prerenal azotemia. X-rays showed no osseous change. Arterial Doppler showed moderate to severe infrapopliteal peripheral arterial disease on the right. MRI is pending. At bedside, patient is sleeping comfortably and easily aroused. He relates that he is feeling somewhat better and denies foot pain. He has been n.p.o. since midnight. He has remained afebrile overnight and pulse and blood pressure have improved as well. Blood cultures are pending. cc:: CC: Sue Caballero Review of Systems ROS Status of ROS 10 or more systems reviewed and unremarkable except as noted in history and below [facility] Medical History (Updated 06/21/25 @ 07:09 by Eric Stephenson DPM) Hyperlipidemia ?E78.5 - Hyperlipidemia, unspecified (ICD-10) Hypertension ?I10 - Essential (primary) hypertension (ICD-10) Diabetes mellitus ?E11.9 - Type 2 diabetes mellitus without complications (ICD-10) Surgical History (Updated 06/20/25 @ 17:44 by Lucrecia Charles) History of tonsillectomy ?Z90.89 - Acquired absence of other organs (ICD-10) History of transmetatarsal amputation of right foot ?Z89.431 - Acquired absence of right foot (ICD-10) History of transmetatarsal amputation of left foot ?Z89.432 - Acquired absence of left foot (ICD-10) Family History (Updated 06/20/25 @ 17:44 by Lucrecia Charles) Other Family history of CHF (congestive heart failure) Family history of diabetes mellitus Social History (Updated 06/20/25 @ 17:44 by Lucrecia Charles) Within the past year, how often did you have a drink containing alcohol: never Score interpretation: A score less than 4 is consistent with normal alcohol consumption. Smoking status: Never smoker Non-prescribed substance use: denies use Highest level of school completed/degree received: some college, no degree Little interest or pleasure in doing things: not at all Feeling down, depressed, or hopeless: not at all Meds Home Medications and Allergies Home Medications ?Medication ?Instructions ?Recorded ?Confirmed ?Type atorvastatin 40 mg tablet 40 mg PO DAILY 06/20/25 06/20/25 History blood-glucose meter (Accu-Chek 06/20/25 06/20/25 History Guide Glucose Meter) celecoxib 100 mg capsule 100 mg PO DAILY 06/20/25 06/20/25 History hydrochlorothiazide 12.5 mg tablet 12.5 mg PO DAILY 06/20/25 06/20/25 History insulin glargine 100 unit/mL (3 30 unit subcut BID 06/20/25 06/20/25 History mL) subcutaneous pen (Lantus Solostar U-100 Insulin) insulin lispro 100 unit/mL 2 - 14 sliding scale dose subcut 06/20/25 06/20/25 History subcutaneous pen (Admelog SoloStar ACHS U-100 Insulin lispro) latanoprost 0.005 % eye drops 1 drp ophthalmic (eye) .QHS 06/20/25 06/20/25 History lisinopril 10 mg tablet 10 mg PO DAILY 06/20/25 06/20/25 History pantoprazole 40 mg tablet,delayed 40 mg PO DAILY 06/20/25 06/20/25 History release Allergies Allergy/AdvReac Type Severity Reaction Status Date / Time venom-honey bee Allergy Anaphylaxis Verified 06/20/25 16:33 Exam Narrative Exam Narrative: Skin: Right foot ulcers at plantar distal aspect of midfoot stump and medial aspect of the foot near navicular tuberosity. Both ulcers are full-thickness. Negative probe to bone. Erythema surrounding the ulcerations and extends to transverse tarsal joint. No fluctuance Vascular: Pedal pulses are faintly palpable. No calf pain on squeeze Musculoskeletal: No pain on palpation. Range of motion of the ankle and hindfoot elicits no pain. ankle joint dorsiflexion is to neutral but not past. Hindfoot is in a neutral position Constitutional Vital Signs, click to edit/add: Last Vital Signs Temp 98 F 06/21/25 04:00 Pulse 75 06/21/25 06:07 Resp 16 06/21/25 04:00 BP 95/67 06/21/25 04:00 Pulse Ox 93 L 06/21/25 06:07 O2 Del Method Room Air 06/21/25 04:00 Results Labs Labs: Short CBC 06/20/25 06/21/25 Range/Units 15:25 05:14 WBC 8.9 7.5 (4.0-11.0) 10^3/uL Hgb 13.9 L 12.3 L (14.0-18.0) g/dL Hct 41.9 L 36.9 L (42.0-54.0) % Plt Count 313 262 (150-450) 10^3/uL BMP 06/20/25 06/21/25 15:25 05:14 Sodium 131 L 136 Potassium 4.6 3.9 Chloride 95 L 101 Carbon Dioxide 25.9 26.7 BUN 32.0 H 26.0 H Creatinine 2.23 H 1.55 H Glucose 453 H 171 H Calcium 9.2 8.6 Liver Function 06/20/25 06/21/25 Range/Units 15:25 05:14 Total Bilirubin 0.8 0.8 (0.2-1.0) mg/dL AST 16 16 (15-37) U/L ALT 20 17 (16-63) U/L Alkaline Phosphatase 125 H 107 (46-116) U/L Albumin 2.8 L 2.4 L (3.4-5.0) g/dL ABG ABG results: 06/20/25 16:00 VBG pH 7.381 VBG pCO2 46.4 Assessment and Plan Assessment and Plan (1) Diabetic infection of right foot: (2) Cellulitis of right foot: (3) Ulcer of right foot due to type 2 diabetes mellitus: (4) Ulcer of right foot with fat layer exposed: (5) Sepsis: Plan Patient seen at bedside. Subjectively patient is feeling somewhat improved and clinically there does not appear to be an abscess. MRI is pending May discontinue n.p.o. order as I would like to see the MRI to ensure there is no abscess. If in fact there is no deep space infection patient MAY not require surgery during this hospital stay. I discussed with the patient that he is at extremely high risk for limb & life loss given severe diabetic foot infection in the setting of PAD and poorly controlled type 2 diabetes Santyl with dry sterile dressing changes daily were ordered. No Ezequiel wrap's given PAD. May place weight on right heel for transfers. Will follow -call with updates
--- NOTE | 2025-06-21 07:23 | ECG_ITS ---
The [facility] Test Date: 2025-06-21 Pat Name: MORE KINGSLEY Department: Room: [facility] Gender: Male Clinical Dietetic Technician: : 1965 Requested By: Order Number: [id number] Reading MD: MARVIN ZAVALETA M.D. Measurements Intervals [place] Rate: 81 P: 29 AR: 164 QRS: 44 QRSD: 103 T: 24 QT: 386 QTc: 448 Interpretive Statements SINUS RHYTHM LOW QRS VOLTAGE IN PRECORDIAL LEADS [QRS DEFLECTION < 1.0 mV IN CHEST LEADS] Borderline ECG Compared to ECG 03/18/2023 20:24:55 Ventricular premature complex(es) no longer present Right-axis deviation no longer present Electronically Signed On 06-21-2025 21:02:09 EDT by MARVIN ZAVALETA M.D.
[2025-06-21] MEDS: PANTOPRAZOLE SODIUM 40 MG TABLET.DR PO (08:30)
[2025-06-21] MEDS: INSULIN ASPART 300 UNIT/3 ML PEN SUBQ ×4 (08:30→21:09)
[2025-06-21] MEDS: HEPARIN SODIUM (PORCINE) 5,000 UNIT/ML VIAL 5000 UNIT SUBQ ×2 (08:30→21:08)
[2025-06-21] MEDS: INSULIN GLARGINE 300 UNIT/3 ML INSULN.PEN 30 UNIT SQ ×2 (08:31→21:09)
[2025-06-21] MEDS: PIPERACILLIN SODIUM/TAZOBACTAM 3.375 GM in 0.9 % SODIUM CHLORIDE 50 ML IV ×2 (08:31→17:04)
[2025-06-21] MEDS: COLLAGENASE CLOSTRIDIUM HIST. 250 UNITS/GM 30 GRAM TUBE 1 APPLIC TOPICAL (08:35)
--- NOTE | 2025-06-21 09:36 | SWNOTE1 ---
SW and I met with pt in room to discuss d/c needs and consult for financial concerns. Pt is from home where he lives alone. There are some steps to get into the home. He voiced he has a cane but does not use it much. Pt has never had home health services. Pt voiced he doesn't have a good support system, but he has a neighbor he talks to and did mention having a son. SW did ask pt about financial concerns. Pt voiced that he has medical bills piling up but his plan is to get a long term acute care registered nurse to help with that. Pt does not have any needs or concerns for d/c. SW to follow if needed.
--- NOTE | 2025-06-21 09:41 | SWNOTE1 ---
Important Message from Medicare reviewed and discussed with patient. Pt. verbalized understanding and signed the form. Original given to patient and copy placed in patient?s chart.
--- NOTE | 2025-06-21 09:45 | CM.NOTE ---
Rounds made with Dr. Caballero, discussed with pt diagnosis and plan of care. Dr. Stephenson also consulted on pt this AM and feels pt will not need surgical intervention. Pt will need continued IV antibiotics and sterile drsg changes per Dr. Stephenson's note. Dr. Caballero also discussed with pt about f/u with vascular surgeon at discharge, pt verbalizes understanding.
--- NOTE | 2025-06-21 12:04 | PM.PN ---
Progress Note: Subjective Subjective Interval history: Patient seen and examined at bedside. States that his pain is better over his right ankle. No very fever no chills overnight. His blood pressure is normal. He was seen earlier by podiatry today. Exam Narrative Exam Narrative: General: The patient appears well and in no apparent distress. Patient is resting comfortably. Patient is not toxic, lethargic. Pleasant and cooperative. Skin: Warm, dry, no pallor noted. There is no rash noted. No petechiae, purpura Head: Normocephalic, atraumatic Eye: Normal conjunctiva, no drainage, EOMI. PERRL Ears, Nose, Mouth, and Throat: oral mucosa is moist. Nares patent. Mouth without vesicles. Cardiovascular: Regular Rate and Rhythm, no murmur, gallop, rub Respiratory: Patient is in no distress, no accessory muscle use, lungs are clear to auscultation, no wheezing, rales or rhonchi Back: non-tender, no CVA tenderness bilaterally to percussion. No CT LS midline pain GI: Soft, obese, no tenderness to palpation, no masses appreciated. No rebound, guarding, or rigidity noted. No distention Musculoskeletal: Patient has full range of motion of all of the extremities, no motor, sensory, or focal neurological deficits. 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 Patient has no toes on the right foot, Patient has open ulcerations to the distal base of the right foot. Patient has no active drainage. intact peripheral pulses Neurological: A&O x4, normal speech, no focal sensory or motor deficits Constitutional Vital Signs, click to edit/add: Last Vital Signs Temp 97.6 F 06/21/25 07:40 Pulse 97 H 06/21/25 10:33 Resp 16 06/21/25 10:00 BP 130/88 06/21/25 07:38 Pulse Ox 97 06/21/25 10:00 O2 Del Method Room Air 06/21/25 04:00 Progress Note: Objective Labs Labs: Short CBC 06/20/25 06/21/25 Range/Units 15:25 05:14 WBC 8.9 7.5 (4.0-11.0) 10^3/uL Hgb 13.9 L 12.3 L (14.0-18.0) g/dL Hct 41.9 L 36.9 L (42.0-54.0) % Plt Count 313 262 (150-450) 10^3/uL BMP 06/20/25 06/21/25 15:25 05:14 Sodium 131 L 136 Potassium 4.6 3.9 Chloride 95 L 101 Carbon Dioxide 25.9 26.7 BUN 32.0 H 26.0 H Creatinine 2.23 H 1.55 H Glucose 453 H 171 H Calcium 9.2 8.6 Liver Function 06/20/25 06/21/25 Range/Units 15:25 05:14 Total Bilirubin 0.8 0.8 (0.2-1.0) mg/dL AST 16 16 (15-37) U/L ALT 20 17 (16-63) U/L Alkaline Phosphatase 125 H 107 (46-116) U/L Albumin 2.8 L 2.4 L (3.4-5.0) g/dL Progress Note: A&P Assessment and Plan (1) Diabetic infection of right foot: (2) Cellulitis of right foot: (3) Ulcer of right foot due to type 2 diabetes mellitus: (4) Ulcer of right foot with fat layer exposed: (5) Sepsis: Plan Severe sepsis in the setting of Right diabetic foot infection, in the setting of uncontrolled type 2 diabetes and diabetic neuropathy/vasculopathy CKD, questionable LYNDA?>>Resolved (Likely was due to hypoperfusion from sepsis and dehydration) -Admit pt to medical floor with telemetry -Start Vancomycin and Zosyn IV to be dosed by pharmacy -Obtain repeat lactic acid -Obtain ESR, CRP, and trend inflammatory markers -Wound care consult -PT/OT eval -Podiatry consult, already aware of the pt and they sent him to the ED -Start NS 50 ml/hr for a total of 1 liter, and reassess his renal panel tomorrow in am -DVT and GI PPx addressed -Discussed the plan with the pt in details. Answered all his questions. 06/21/2025 patient's blood pressure significantly improved today. He was seen earlier by podiatry, recommended MRI first to ensure there is no abscess or deep infection. Surgery was held off until after MRI possibly not during this hospital stay. Also recommended Santyl with dry sterile dressing changes daily. PT/OT saw the patient as well. Also podiatry recommended to continue the IV antibiotics which are Zosyn and vancomycin for today. He may be switched to oral antibiotic if there is no surgery planned this hospital stay and he continues to improve by tomorrow. I also discussed the findings of his vascular artery ultrasound showing moderate to severe distal right lower extremity peripheral disease with moderate distal left lower extremity peripheral artery disease. He will need vascular surgery as outpatient to be set up by us or by his PCP when he is discharged, as this will improve his chance of healing. Discussed the plan in detail with him today. Answered all his questions. His ESR was more than 130 earlier yesterday I will get another CRP Tomorrow and Reassess.
[2025-06-21] MEDS: VANCOMYCIN HCL 2,000 MG in 0.9 % SODIUM CHLORIDE 500 ML 250 MG IV (17:04)
[2025-06-21 17:37] LABS: Glucose Urine UA >=1000 mg/dL (NEGATIVE)
[2025-06-21 18:11] LABS: Cast Seen? NONE SEEN #/LPF (NONE SEEN); Crystals Seen? None Seen #/HPF (None Seen); Urine Culture Indicated NO
[2025-06-21] MEDS: LATANOPROST 0.005% 2.5 ML BOTTLE 1 DROP OP (21:08)
[2025-06-21] MEDS: ATORVASTATIN CALCIUM 40 MG TABLET PO (21:08)
[2025-06-22] VITALS (18 sets, daily range): BP systolic 119–141; BP diastolic 79–89; PULSE 69–101; TEMP 36.6–36.8; O2SAT 92–95
[2025-06-22] MEDS: PIPERACILLIN SODIUM/TAZOBACTAM 3.375 GM in 0.9 % SODIUM CHLORIDE 50 ML IV ×2 (01:49→08:28)
[2025-06-22 05:37] LABS: Hematocrit 39.7 % (42.0-54.0); Hemoglobin 12.8 g/dL (14.0-18.0); Immature Granulocytes Abs Auto 0.03 10^3/uL (0.00-0.03); Immature Granulocytes Pct Auto 0.4 % (0.0-0.5); Lymphocytes Absolute Auto 2.2 10^3/uL (1.2-3.8); Mean Corpuscular HGB Conc 32.2 g/dL (29.9-35.2); Mean Corpuscular Hemoglobin 26.2 pg (25.9-34.0); Mean Corpuscular Volume 81.4 fL (80.0-94.0); Platelet Count 266 10^3/uL (150-450); Red Blood Count 4.88 10^6/uL (4.70-6.10); White Blood Count 7.5 10^3/uL (4.0-11.0)
[2025-06-22 06:03] LABS: Alanine Aminotransferase 20 U/L (16-63); Albumin Globulin Ratio 0.4; Albumin Level 2.4 g/dL (3.4-5.0); Alkaline Phosphatase 106 U/L (46-116); Anion Gap 10.9; Aspartate Amino Transferase 17 U/L (15-37); Blood Urea Nitrogen 18.0 mg/dL (7.0-18.0); Calcium 8.6 mg/dL (8.5-10.1); Carbon Dioxide 27.8 mmol/L (21.0-32.0); Chloride 99 mmol/L (98-107); Estimated GFR (African America >60 (>=60 mL/min/1.73m^2); Estimated GFR (Non-African Ame 51 (>=60 mL/min/1.73m^2); Globulin 6.3 g/dL; Glucose 130 mg/dL (74-106); Magnesium 1.8 mg/dL (1.8-2.4); Potassium 3.7 mmol/L (3.5-5.1); Sodium 134 mmol/L (136-145); Total Protein 8.7 g/dL (6.4-8.2)
[2025-06-22] MEDS: PANTOPRAZOLE SODIUM 40 MG TABLET.DR PO (06:12)
[2025-06-22] MEDS: INSULIN GLARGINE 300 UNIT/3 ML INSULN.PEN 30 UNIT SQ (08:29)
[2025-06-22] MEDS: COLLAGENASE CLOSTRIDIUM HIST. 250 UNITS/GM 30 GRAM TUBE 1 APPLIC TOPICAL (08:29)
[2025-06-22] MEDS: HEPARIN SODIUM (PORCINE) 5,000 UNIT/ML VIAL 5000 UNIT SUBQ (08:30)
[2025-06-22] MEDS: INSULIN ASPART 300 UNIT/3 ML PEN SUBQ (11:47)
--- NOTE | 2025-06-22 12:00 | SWNOTE1 ---
KAILYN spoke to Dr. Bales, possible discharge today. KAILYN received message from physician to attempt to get pt an apt with vascular surgery. KAILYN did call [facility] and expressed the importance of this appointment and that is is recommended by 3 physicians to get in to Vascular as soon as possible. [facility] is able to set a new pt appointment for 06/28/25 at 10:30am. SW notified nurse and updated Dr. Cordero. They did request information be sent on patient. KAILYN to send his physician notes from hospital stay and imaging for continuity of care.
--- NOTE | 2025-06-22 12:13 | P.DS_ITS ---
DS: Providers Provider Date of admission: 06/20/25 17:20 Primary care physician: Jessee Molina DO Consults: 06/20/25 Consult to Youth Care Worker Routine Reason for consult:: Financial Concerns 06/20/25 16:35 Consult to Podiatry Routine Consulting Provider: Eric Stephenson Reason for consultation: Diabetic foot infection 06/20/25 16:39 Consult to Pharmacy Routine Consulting Provider: Reason for consultation: IV Zosyn and IV Vancomycin Consult to Wound Care Routine Consulting Provider: Mauro Craven Reason for consultation: fiabetic foot infection DS: Diagnosis Discharge Diagnosis (1) Diabetic infection of right foot: (2) Cellulitis of right foot: (3) Ulcer of right foot due to type 2 diabetes mellitus: (4) Ulcer of right foot with fat layer exposed: (5) PAD (peripheral artery disease): DS: Summary Hospital Course Hospital Course: This is a 59-year-old man with a long history of uncontrolled diabetes mellitus type 2 and multiple surgeries to both of his feet who 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 He had debridement in that office and then was sent to the emergency room because of low blood pressures. In the ER sepsis was a concern. He was given IV fluids. He was given broad- spectrum antibiotics. He was admitted at the [facility]. His antibiotics were IV vancomycin and IV Zosyn. While he was here his vital signs stabilized. He had no fevers. His creatinine did improve from 2.23 down to 1.55 and then down to 1.43 on the last hospital day. His white blood count was quite good at 8.9, 7.5, and 7.5. Blood cultures x 2 were obtained and these were negative. Unfortunately there was no wound culture that was sent as he went through the wound care center or the emergency room process. The patient had podiatry consultation by Dr. Eric Stephenson. Clinically there was no evidence of an abscess in the foot. Peripheral arterial disease was suspected. Dr Stephenson recommended that the patient uses Santyl with a dry sterile dressing changes but no kam wraps given the high risk of peripheral arterial disease. He may place weight on his right heel for transfers. MRI of the foot showed mild edema is noted along the 2nd and 3rd metatarsal remnant anteriorly suspicious for osteomyelitis. Soft tissue ulceration and adjacent cellulitis are noted along the plantar and anterior aspect of the medial right foot. No evidence of abscess. It is possible that the MRI is picking up localized edema and inflammation from the soft tissue infection and this does not fully represent osteomyelitis, especially considering how many other surgeries he has had on his foot in the past. And arterial ultrasound of the lower extremity was read as moderate to severe distal right lower extremity peripheral arterial vascular disease. Moderate distal left lower extremity peripheral arterial disease. Therefore the patient needs to be evaluated by vascular surgery first, possibly to include diagnostic angiogram and therapeutic angioplasty and stenting, before podiatry can consider bone biopsy to fully rule and/or rule out infectious bacterial osteomyelitis. When the patient was being discharged from the [facility] on Wednesday efforts are being made to get him in to see the vascular surgery office as soon as possible. After that the patient can follow up in the podiatry office of Dr. Eric Stephenson. The patient is being discharged home on 14 days of doxycycline and Augmentin as no specific bacterial infectious organism has been identified so far. Status at Discharge Functional status at discharge: independent ambulation Overall status at discharge: patient is progressing back to baseline Time Spent with Patient Time attestation: Total time spent providing and/or coordinating discharge services: 44 minutes. Time spent: greater than 30 minutes Exam Constitutional Vital Signs, click to edit/add: Last Vital Signs Temp 97.9 F 06/22/25 08:00 Pulse 94 H 06/22/25 11:48 Resp 10 L 06/22/25 09:30 BP 141/89 06/22/25 07:52 Pulse Ox 92 L 06/22/25 04:00 O2 Del Method Room Air 06/22/25 08:00 DS: Data Data Completed and Pending Labs on day of discharge: Labs from last 24 hours 06/22/25 06/22/25 06/21/25 11:45 05:01 21:01 WBC 7.5 RBC 4.88 Hgb 12.8 L Hct 39.7 L MCV 81.4 MCH 26.2 MCHC 32.2 RDW 14.1 Plt Count 266 MPV 10.5 Neut % (Auto) 54.2 Lymph % (Auto) 29.2 [place] % (Auto) 10.7 Eos % (Auto) 4.2 Baso % (Auto) 1.3 Neut # (Auto) 4.0 Lymph # (Auto) 2.2 [place] # (Auto) 0.8 Eos # (Auto) 0.3 Baso # (Auto) 0.1 Abs Immat Gran (auto) 0.03 Imm/Tot Granulo (auto) 0.4 ESR 112 H Sodium 134 L Potassium 3.7 Chloride 99 Carbon Dioxide 27.8 Anion Gap 10.9 BUN 18.0 Creatinine 1.43 H Est GFR ( Amer) >60 Est GFR (Non-Af Amer) 51 L BUN/Creatinine Ratio 12.6 Glucose 130 H Calcium 8.6 Magnesium 1.8 Total Bilirubin 0.7 AST 17 ALT 20 Alkaline Phosphatase 106 C-Reactive Protein 4.62 H Total Protein 8.7 H Albumin 2.4 L Globulin 6.3 Albumin/Globulin Ratio 0.4 Urine Color Urine Clarity Urine pH Ur Specific [place] Urine Protein Urine Glucose (UA) Urine Ketones Urine Occult Blood Urine Nitrite Urine Bilirubin Urine Urobilinogen Ur Leukocyte Esterase Urine RBC Urine WBC Ur Squamous Epith Cells Urine Crystals Urine Bacteria Urine Casts Urine Mucus Ur Culture Indicated? POC Glucose 247 H 196 H 06/21/25 06/21/25 06/21/25 17:20 17:00 12:13 WBC RBC Hgb Hct MCV MCH MCHC RDW Plt Count MPV Neut % (Auto) Lymph % (Auto) [place] % (Auto) Eos % (Auto) Baso % (Auto) Neut # (Auto) Lymph # (Auto) [place] # (Auto) Eos # (Auto) Baso # (Auto) Abs Immat Gran (auto) Imm/Tot Granulo (auto) ESR Sodium Potassium Chloride Carbon Dioxide Anion Gap BUN Creatinine Est GFR ( Amer) Est GFR (Non-Af Amer) BUN/Creatinine Ratio Glucose Calcium Magnesium Total Bilirubin AST ALT Alkaline Phosphatase C-Reactive Protein Total Protein Albumin Globulin Albumin/Globulin Ratio Urine Color Lt. yellow Urine Clarity Clear Urine pH 7.0 Ur Specific [place] 1.010 Urine Protein Negative Urine Glucose (UA) >=1000 A Urine Ketones Negative Urine Occult Blood Trace-i Urine Nitrite Negative Urine Bilirubin Negative Urine Urobilinogen 0.2 Ur Leukocyte Esterase Negative Urine RBC 0-2 Urine WBC None seen Ur Squamous Epith Cells None seen Urine Crystals None seen Urine Bacteria Trace A Urine Casts None seen Urine Mucus None seen Ur Culture Indicated? No POC Glucose 255 H 261 H Discharge Plan Discharge Disposition: Home, Self-Care Condition: Fair Discharge Medications: New Santyl 250 unit/gram Ointment 1 applic topical QD Qty: 0 0RF doxycycline monohydrate 100 mg capsule 100 mg PO BID 14 Days Qty: 28 0RF amoxicillin-pot clavulanate 875-125 mg tablet 1 tab PO BID 14 Days Qty: 28 0RF Continued atorvastatin 40 mg tablet 40 mg PO DAILY (DME) blood-glucose meter [Accu-Chek Guide Glucose Meter] Misc MISCELLANEOUS celecoxib 100 mg capsule 100 mg PO DAILY hydrochlorothiazide 12.5 mg tablet 12.5 mg PO DAILY insulin glargine [Lantus Solostar U-100 Insulin] 100 unit/mL (3 mL) insulin pen 30 unit SUBCUT BID insulin lispro [Admelog SoloStar U-100 Insulin] 100 unit/mL insulin pen 2 - 14 sliding scale dose SUBCUT ACHS Rx Instructions: INJECT 4 TIMES DAILY DIRECTED PER SLIDING SCALE 151-174 2 UNITS, 175-199 4 U, 200-224 6 U, 225-249 8 U, 250-274 10 U, 275-299 12 U, OVER 300 14 U AND CALL THE PROVIDER. MAX 56 UNITS DAILY. latanoprost 0.005 % drops 1 drp OPHTHALMIC (EYE) .Q Rx Instructions: LEFT EYE lisinopril 10 mg tablet 10 mg PO DAILY pantoprazole 40 mg tablet,delayed release (DR/EC) 40 mg PO DAILY Print Language: Palestinian Forms: Portal Instructions Referrals: kianna [Other] Follow Up Appointments: New patient appointment with [facility] Surgery 06/28/25 @ 10:30am [address] [place] [address] Please bring Insurance Card and [employer] Service Change Leader's License 07/05 @ 9:30am with Dr. Molina [address] [place] [address], [facility] [address] [phone]
--- NOTE | 2025-06-22 13:07 | SWNOTE1 ---
SW stopped in to speak with pt and let him know he is set to see Vascular Surgery next . SW expressed the importance of making it to this apt. Pt voiced understanding. SW did ask pt about his dressing changes. Pt voiced he does do them himself. SW expressed the importance of doing them daily and keeping it clean. Pt voiced understanding. No further questions at this time.
--- NOTE | 2025-06-25 14:15 | CM.DCFOLLOWU ---
Person spoke with:patient How are you feeling?good How is your pain?none Did you understand your discharge instructions?yes Do you have any questions about your discharge instructions?no Were you given any prescriptions at discharge?yes Were you able to get your prescriptions filled?yes Do you understand how to take your medications as ordered?yes Do you have any questions about your follow up appointment and do you plan to keep your follow up appointment?no questions, will follow up Is there anything else that you would like to discuss?no Questions/Comments/Concerns/Other:none
--- NOTE | 2025-07-02 15:31 | CM.NOTE ---
Aerobic culture results [place] txt sent to Dr. Bales. No orders received. Case Management just to f/u with pt to see if he went to vascular appointment. Called patient, no answer and Case Management left message for patient.
--- NOTE | 2025-07-02 15:40 | CM.NOTE ---
Patient called back and patient did go to vascular appointment and is scheduled to return to see vascular on 07/07. Faxed over anaerobic culture to vascular office per request of vascular office.
== END 2025-06-22 15:15 | disposition home or self-care (01) | DRG 872 ==
LOC: ER 13:58 → MS 17:33
PROVIDERS: Admitting Provider Student in an Organized Health Care Education/Training Program; Emergency Provider Emergency Medicine; PCP Family Medicine; Visit Provider Student in an Organized Health Care Education/Training Program
DX: A41.9 Sepsis, unspecified organism (principal); L03.115 Cellulitis of right lower limb; L97.412 Non-pressure chronic ulcer of right heel and midfoot with fat layer exposed; E11.628 Type 2 diabetes mellitus with other skin complications; E11.621 Type 2 diabetes mellitus with foot ulcer; I95.9 Hypotension, unspecified; Z79.4 Long term (current) use of insulin; E78.5 Hyperlipidemia, unspecified; I10 Essential (primary) hypertension; E11.51 Type 2 diabetes mellitus with diabetic peripheral angiopathy without gangrene; Z89.431 Acquired absence of right foot; Z89.432 Acquired absence of left foot; K21.9 Gastro-esophageal reflux disease without esophagitis; E11.40 Type 2 diabetes mellitus with diabetic neuropathy, unspecified; E11.65 Type 2 diabetes mellitus with hyperglycemia; Z82.49 Family history of ischemic heart disease and other diseases of the circulatory system
CPT/HCPCS: 11043; 36415; 71045; 73630; 73718; 80053; 81001; 82800; 82948; 83036; 83605; 83735; 83880; 84100; 84484; 85025; 85610; 85652; 86140; 86850; 86900; 86901; 87040; 87070; 87075; 87077; 87106; 87186; 93005; 93925; 96361; 96365; 99285; J1644; J2543; J3373

== ENCOUNTER 2025-09-05 10:51 | Outpatient (OUT) | payer MEDICARE, SELFPAY ==
--- OUTSIDE RECORDS SUMMARY | 2025-08-22 20:08 | XMS_ITS | Continuity of Care Document ---
Author Organization [facility] Address [address] [place] [address] Phone Care Team Providers Care Washing Machine Operator Name Role Phone Marilee Staples NP-C Primary Care Provider Cathy العراقي NP-C Attending Provider Ghulam Quintanilla MD Attending Provider [phone] NON STAFF Primary Care Provider Ghulam Hdez MD Other Provider Care Teams Patient Care Team Team Status: Active Member Role Status Dates NON STAFF Primary Care Provider Active Visit Care Team Team Status: Inactive Member Role Status Dates Marilee Staples NP-C Primary Care Provider Active Start: June 28, 2025 End: June 28, 2025 ALISHA Pardo Attending Provider Active Start: June 28, 2025 End: June 28, 2025 Visit Care Team Team Status: Inactive Member Role Status Dates Marilee Staples NP-Kingsley Primary Care Provider Active Start: June 28, 2025 End: June 28, 2025 Ghulam Quintanilla MD Attending Provider Active Start: June 28, 2025 End: June 28, 2025 Visit Care Team Team Status: Inactive Member Role Status Dates Ghulam Quintanilla MD Attending Provider Active Start: July 09, 2025 End: July 09, 2025 NON STAFF Primary Care Provider Active Start: July 09, 2025 End: July 09, 2025 Visit Care Team Team Status: Active Member Role Status Dates Ghulam Quintanilla MD Attending Provider Active Start: July 16, 2025 Ghulam Quintanilla MD Other Provider Active Start: July 16, 2025 NON STAFF Primary Care Provider Active Start: July 16, 2025 Visit Care Team Team Status: Inactive Member Role Status Dates SHARA PardoC Attending Provider Active Start: August 22, 2025 End: August 22, 2025 NON STAFF Primary Care Provider Active Start: August 22, 2025 End: August 22, 2025 Chief Complaint and Reason for Visit Chief Complaint Admit Date Ref by Nii, right lower extremity PVD June 28, 2025 9:55am I73.9, ADDED ON 06/28/25 11:30A June 11:23am PAD w/ Non Healing Diabetic Ulcer July 09, 2025 8:15am PAD w/ Non Healing Diabetic Ulcer July 16, 2025 12:00am I65.23 August 22, 2025 8: 16am Reason for Visit Admit Date Diabetic ulcer of right foot June 28, 2025 9:55am 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 June 28, 2025 9:55am PAD (peripheral artery disease) June 282024 9:55am Reason for Referral Referring Provider Name Referring Provider Address Referring Provider Phone Referral Date Requested Appointment Date Referral Reason Ghulam Quintanilla [address] [address] Work Phone: FU PRN FU PRN Allergies, Adverse Reactions, Alerts Allergen Type Severity Reaction Last Updated Verified Status bee venom protein (honey bee) Allergy Unknown Anaphylaxis July 09 8:58am Yes Active Social History Smoking Status Status Start Date End Date Date of Observa tion Ex-smoker (finding) February 022023 12:59pm Observation Status Observation Response Date of Response Legal Sex Male (finding) Sex Assigned At Male [birth year] Family History Relationship Condition Age at Onset Recorded Date/T heather mother Diabetes mellitus Unknown sister Diabetes mellitus Unknown father Heart problem Unknown Unknown Problems Active Problems Medical Problem Onset Date Status Comments Elevated alkaline phosphatase level Unknown Activ e Insulin long-term use Unknown Active Occlusion and stenosis of bi lateral carotid arteries Unknown Active Gastroparesis Unknown Active Diabetes Unknown Active Problem List cl kwasi-up per request of Phys. EHR Cmte Fatty liver Unknown Active Type 2 diabetes mellitus Unknown Active High cholesterol Unknown Active Hyperlipidemia Unknown Active Diabetic ulcer of right foot Unknown Active Diabetes mellitus type 2 wit h complications Unknown Active Peripheral neuropathy Unknown Active Retinopathy Unknown Active Epigastric pain Unknown Active BMI 36.0-36.9,adult Unknown Active PAD (peripheral artery disease) Unknown Active GERD (gastroesophageal reflu x disease) Unknown Active Problem List clean-u p per request of Phys. EHR Cmte GERD (gastroesophageal reflu x disease) Unknown Active Nausea and vomiting Unknown Active High blood pressure Unknown Active Nausea Unknown Active Vomiting Unknown Active Medications Medication Status Dose Units Route Directions Qty Days St art Date Stop Date End Date Instructions Adherence Atorvastati n 40 mg tablet Active 40 MG PO Daily 2019 1:00am Unknown Insulin Glargine (Lantus U-100 Insulin) 100 unit/mL Solution Discont inued 28 UNIT SUBCUT Daily at bedtime 2019 1:00am May 09, 2024 2:20p m Metformin 1,000 mg tablet Discont inued 1000 MG PO Twice daily 2019 1:00am 2023 12:05 pm Lisinopril 10 mg tablet Active 10 MG PO Daily 2019 1:00am Unknown Insulin Aspart U-100 (Novolog Flexpen U-100 Insulin) 100 unit/mL (3 mL) Insulin Pen Discont inued 0 UNIT SUBCUT As Directed 2019 1:00am May 09, 2024 2:20p m per sliding scale Insulin Glargine 100 unit/mL (3 mL) insulin pen Discont inued 38 UNIT SUBCUT Every morning 2019 1:00am 2023 12:05 pm Pantoprazol e 40 mg tablet,flip yed release (DR/EC) Active 40 MG PO Daily February 02, 2024 12:00a m FreeTextSi tablet Orally Once a day; Note: Source Status: Taking; Refills: 4; Qty: 30 Tablet; Provider: Dora Zavaleta Unknown Hydrochloro thiazide 12.5 mg tablet Active 12.5 MG PO Daily February 02, 2024 12:00a m FreeTextSi tablet in the morning Orally Once a day; Note: Source Status: Taking; Provider: Dora German ( ) Unknown Cholecalcif ron (Vitamin D3) 125 mcg (5,000 unit) capsule Active 125 MCG PO Daily February 02, 2024 12:00a m Unknown Latanoprost 0.005 % drops Active 1 DROPS EYE-LEE TH Daily February 02, 2024 12:00a m FreeTextSi drop into affected eye in the evening Ophthalmic Once a day; Note: Source Status: Taking; Provider: Dora eGrman ( ) Unknown Doxycycline Monohydrate 100 mg capsule Active 100 MG PO Twice daily July 09, 2025 12:00a m Unknown Amoxicillin -Pot Clavulanate 875-125 mg tablet Active 1 TAB PO Daily July 09, 2025 12:00a m Unknown Insulin Nph Isoph U-100 Human (Novolin N Nph U-100 Insulin) 100 unit/mL suspension Active 36 UNIT SUBCUT Every morning July 09, 2025 12:00a m Unknown Insulin Nph Isoph U-100 Human (Novolin N Nph U-100 Insulin) 100 unit/mL suspension Active 38 UNIT SUBCUT Bedtime July 09, 2025 12:00a m Unknown Celecoxib 100 mg capsule Active 100 MG PO Daily July 09, 2025 12:00a m Unknown Famotidine 20 mg tablet Active 20 MG PO Daily May 09, 2024 12:00a m FreeTextSi tablet Orally Once a day; Note: Source Status: Taking; Provider: Dora German ( ) Unknown Clopidogrel 75 mg tablet Active 75 MG PO Daily June 28, 2025 12:00a m Unknown Aspirin 81 mg tablet Active 81 MG PO Daily June 28, 2025 12:00a m Unknown Procedures Procedure Date Performed Status IR Angiogram w/TLA/Stent Right Leg (Right) Augus t 2024 9:35am completed CT angio neck August 22, 2025 8:20am complet ed CT angio head August 22, 2025 8:20am complet ed Relevant Diagnostic Tests and/or Laboratory Data Laboratory Results Test Collection Date/Time Result Date/Time Result Interpretation Reference Range Result Comment Performing Site Blood Urea Nitrogen July 09, 2025 8:36am July 09, 2025 9:06am 26 mg/dL Above high normal 7-25 [facility] [id number] [address] [place] [address] Creatinine July 09, 2025 8:36am July 09, 2025 9:06am 1.42 mg/dL Above high normal 0.70-1.30 [facility] [id number] [address] [place], [place] [id number] Estimated GFR (CKD-EPI) July 09, 2025 8:36am July 09, 2025 9:06am 57.276 mL/Min [facility] [id number] [address] [place], [place] [address] Pharmacy Creatinine Clearance (Chem July 09, 2025 8:36am July 09, 2025 9:06am 72.67 [facility] [id number] [address] [place], [place] [address] Bedside Creatinine August 22, 2025 8:30am August 22, 2025 8:35am 1.3 mg/dL 0.6-1.3 ER/ESD physician is notified/sh own all ISTAT results.Cri tical values may be confirmed by laboratory testing ifdeemed necessary by ER attending doctor. [facility] [id number] [address] [place], [place] [address] Bedside Estimated GFR (eGFR) August 22, 2025 8:30am August 22, 2025 8:35am > 60.0 [facility] [id number] [address] [place], [place] [address] Diagnostic Imaging Reports Author Blair Kidd [facility] Report Date/Time August 22, 2025 5: 14pm [facility] [address] [place] [id number] CT Scan Report Signed Patient: Rashel Rodriguez MR#: [id number] : 1965 Acct:[id number] Age/Sex: 59 / M ADM Date: 5 Loc: CT Room: Type: [facility] Attending Dr: Cathy العراقي CARPENTER APPRENTICE-C Copies to: Cathy العراقي APRN~ Ordering Provider: Cathy العراقي APRN Date of Service: 08/22/25 CT/CT angio head: I65.23 - Occlusion and stenosis of bilateral carotid ney... ([id number]) CT/CT angio neck: I65.23 - Occlusion and stenosis of bilateral carotid ney... CT angio head, CT angio neck 08/22/2025 9:10 AM SIGNS AND SYMPTOMS: ^I65.23 - Occlusion and stenosis of bilateral carotid ney... CONTRAST: 80 mL of intravenous Visipaque 370 TECHNIQUE: Multi-detector CT angiography axial slices of the head and neck were obtained during intravenous administration of IV contrast material. Sagittal, coronal, and 3-D reconstructions were performed and viewed on a separate workstation. CT was performed with one or more of the following dose reduction techniques: Automated exposure control, adjustment of the mA and/or kV accordingto patient size, or use of iterative reconstruction technique. Stenoses were measured using the NASCET criteria. COMPARISON: None. FINDINGS: CTA HEAD: The superior cerebellar arteries, posterior inferior cerebellar arteries, and the basilar artery are within normal limits. The posterior cerebral arteries areunremarkable. The intracranial segments of the internal carotid arteries are within normal limits. There are normal anterior and middle cerebral arteries. Anterior communicating artery is patent. Posterior communicating arteries are present. The deep venous system and dural venous systems appear to be patent. No bony abnormalities are appreciated. CTA NECK: There is a normal three-vessel arch. The subclavian arteries are within normal limits. The vertebral arteries arise from the subclavian arteries and are normal in course and caliber up to the skull base. The common and internal carotid arteries are normal in course and caliber. Calcified plaque is noted inthe carotid bifurcations without significant stenosis. Visualized lung parenchyma is clear. Degenerative changes are noted in the cervical spine. No acute bony abnormalities are identified. The paraspinous soft tissues are within normal limits. CT/CT angio head IMPRESSION: Calcified plaque is noted in the carotid bifurcations without significant stenosis. No evidence of focal stenosis, aneurysmal dilatation, dissection or occlusion. Impression dictated by: Blair Kidd M.D. 08/22/2025 5:14 PM Dictation Location: [place] [address] Transcribed By: [facility] 08/22/251713 Dictated By: Blair Kidd II, MD 08/22/251703 Signed By: <Electronically signed by Blair Kidd II, MD in OV> 08/22/251713 Vital Signs Vital Reading Result Reference Range Collection Date/Time Height 70 [in_i] June 28 10:48am Weight 121.10 kg June 28 10:48am Body Temperature 98.2 [degF] 97.6-99.0 June 28, 2025 10:48am Heart Rate 68 /min 60-100 June 28 10:48am Respiratory rate 16 /min -June 28, 2025 10:48am Oxygen saturation by Pulse oximetry 98 % 95-100 June 28, 2025 10: 48am BP Systolic 122 mm[Hg] 100-140 June 28 10:48am BP Diastolic 82 mm[Hg] 60-100 June 28 10:48am BMI (Body Mass Index) 38.2 kg/m2 June 28, 2025 10:48am Height 70 [in_i] July 09 8:31am Weight 117.02 kg July 09 8:31am Heart Rate 78 /min 60-100 July 09 12:22pm Respiratory rate 16 /min -June 12:22pm Oxygen saturation by Pulse oximetry 95 % 95-100 July 09, 2025 12 :22pm BP Systolic 112 mm[Hg] 100-140 July 09 12:22pm BP Diastolic 74 mm[Hg] 60-100 July 09 12:22pm Inhaled oxygen flow rate 2 L/min Jun 2024 10:40am Advance Directives Advance Directive Response Recorded Date/ Time Advance Directives Yes December 8:10am Insurance Providers Guarantor Roger Ozuna Address [address] [place] [phone] Contact Info. Home Phone: Payer Policy Id Subscriber's Name Subscriber Id Effectiv e Date Expiration Date Medicare [id number] Roger Ozuna [id number] Encounters Encounter Location(s) Arrival/Admit Date Discharge/Depart Date Provider(s) Departed Physician/Prov ider Office Visit -[facility] June 28, 2025 9:55am June 28, 2025 11:53am Cathy العراقي APRN Departed Clinical -Ultrasound [facility] June 28, 2025 11:23am June 28, 2025 11:24am Ghulam Quintanilla MD Departed Surgical Day Care -Interventional Radiology July 09, 2025 8:15am July 09, 2025 2:29pm Ghulam Quintanilla MD Non-patient / Non-visit -[facility] July 16, 2025 12:00am Ghulam Quintanilla MD Departed Clinical -CT Scan [facility] August 22, 2025 8:16am August 22, 2025 8:17am Cathy العراقي , DENTAL APPLIANCE MECHANIC Recent Diagnosis Onset Date Admit Date Diabetic ulcer of right foot Unknown Jun 9:55am Occlusion and stenosis of bi lateral carotid arteries Unknown June 28, 2025 9:55am PAD (peripheral artery disease) Unknown June 28, 2025 9:55am Assessments Diagnosis Onset Date Resolution Status Admit Date Diabetic ulcer of right foot acute June 28, 2025 9:55am Occlusion and stenosis of bilateral carotid arteries acute Augus 2024 9:55am PAD (peripheral artery disease) acut e June 28, 2025 9:55am Plan of Treatment Author Cathy العراقي [facility] Authored June 28, 2025 1:5 2pm Noninvasive arterial studies from outside facility show moderate to severe distal right lower extremity peripheral arterial disease. He currently has a nonhealing ulcer on the plantar right forefoot and medial side of the foot. Wounds have been present for few months now without improvement and in fact reportedly worsening. This patient has multiple issues. He has poorly controlled diabetes, he is not offloading, and he has PAD. We discussed the factors of wound healing to include good blood supply, good diabetic management, proper nutritional support, and offloading. He is at high risk for limb loss. 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 Recommend proceeding with diagnostic angiogram to further evaluate his blood supply for healing. Dr. Quintanilla in room to further evaluate patient and answer questions. We discussed the procedure, risk, benefits and addressed all his questions once again. Patient wished to proceed. Will get him on the schedule in near future. This patient also has high grade right ICA stenosis of greater than 70% with ICA/CCA ratio 5.48. He remains asymptomatic without any hemispheric symptoms whatsoever. Will get him started on good medical therapy with use of dual antiplatelet and high intensity statin medication of 40 mg. Rx was sent to his pharmacy and he was instructed on the use of the medications. CTA of the head and neck was ordered to further delineate the degree of stenosis of the right ICA. We discussed carotid disease at length, I reviewed the carotid handout, and I addressed his questions once again. Will see him back after the CTA is obtained to discuss any further treatment recommendations based on those studies. He verbalizes understanding of our discussion today and agrees with this plan. Denies additional questions. Future Tests Future scheduled test information is unavailable Pending Tests Pending diagnostic test information is unavailable Future Visits Future appointment information is unavailable Referrals to Other Providers Reason for Referral Referral Start Date Provider Provider Contact Information Provider Address DUANE Quintanilla MD Work Phone: [address] [place] [address] Future Procedures Procedure Name Ordered Date Scheduled Date Discharge Order July 09, 2025 12:50pm July 09, 2025 12:50pm Discharge Order July 09, 2025 12:51pm July 09, 2025 12:51pm Future Medications Future medication information is unavailable Patient Instructions Instruction Admit Date Wound Care for Arterial Punc hernan (DIPTI) Know your Meds July 09, 2025 8:15am
--- OUTSIDE RECORDS SUMMARY | 2025-09-05 10:56 | XMS_ITS | Encounter Summary ---
Author Organization [employer] s tem Address [id number] [address] [place] [address] Care Team Providers Care Veterinary Science Teacher Name Role Phone Jessee Molina DO Primary Care Provider [phone] Encounter Details Date Type Department Care Team (Late st Contact Info) Description 01/27/[address] [facility] [address] [place] [address] Radha Dockery CMA Social History Tobacco Use Types Packs/Day Years Used Date Smoking Tobacco: Never Smokeless Tobacco: Never Alcohol Use Standard Drinks/Week Comments Not Currently 0 (1 standard drink = 0.6 oz pur e alcohol) quit 2006 Social Connection and Isolation Panel Answer Date Recorded In a typical week, how many times do you talk on the phone with family, friends, or neighbors? Twice a week 02/07/2021 How often do you get together with friends or re latives? Never 02/07/2021 How often do you attend buddhist or zoroastrianism serv ices? Never 02/07/2021 Do you belong to any clubs o r organizations such as buddhist groups, unions, fraternal or athletic groups, or [...] Recorded Total Score 0 02/07/2021 [facility] - Occupational Stress Questionnaire Answer Date [...] Recorded Do you need help finding a the [facility] career center and/or a training program? [...] Miscellaneous Notes * Telephone Encounter - Radha GagnonDIVINA hyde - 01/27/2022 11:12 AM EST Patient had an appointment for tomorrow, which had to be cancelled due to non par with his new insurance. He states he is not having any problems and is doing well. documented in this encounter Plan of Treatment Upcoming Encounters Date Type Department Care Team (Late st Contact Info) Description 09/21/2025 8:30 AM EDT Clinical Support [facility] [address] [place] [phone] Jessee Molina DO [address] [facility], [place] [address] documented as of this encounter [...] documented as of this encounter Care Teams Veterinary Science Teacher Relationship Specialty Start Date End Date Jessee Molina DO [address] [place] [address], [place] [address] PCP - General Family Medicine 04/26/25 documented as of this encounter
--- OUTSIDE RECORDS SUMMARY | 2025-09-05 10:56 | XMS_ITS | Clinical Summary ---
Author Organization [facility] Address [address] [place] [id number] Care Team Providers Care Plasma Specialist Name Role Phone Marilee Staples CNP Primary [...] of 2) 2016 COVID-19 Vaccine (1 - season) 2025 Influenza Vaccine (#1) 2025 Insurance MEDICARE PART A & B Advance Directives For more information, please contact: [phone] * Full Code - Unverified (Latest Code Status on File) Date Activated Date Inactivated Comments 11/05/2020 7:21 PM 11/21/2020 10:03 PM Care Teams Plasma Specialist Relationship Specialty Start Date End Date Marilee Staples, CONVEYOR FEEDER OFFBEARER [address] [place] [id number] PCP - General Nurse Practitioner 11/05/20
--- OUTSIDE RECORDS SUMMARY | 2025-09-05 10:56 | XMS_ITS | Encounter Summary ---
Author Organization [employer] Address [id number] [address] [place] [address] Care Team Providers Care Marketing And Outreach Coordinator Name Role Phone BrendaJessee aguilar Roger SCHWARZ Primary Care Provider Encounter Details Date Type Department Care Team (Late st Contact Info) Description 02/21/2021 [facility] [address] [place] [address] Lakshmi Taipa CMA Social History Tobacco Use Types Packs/Day Years Used Date Smoking Tobacco: Never Smokeless Tobacco: Never Alcohol Use Standard Drinks/Week Comments Yes 0 (1 standard drink = 0.6 oz pur e alcohol) LAST DRINK WAS 9 YRS AGO Social Connection and Isolation Panel Answer Date Recorded In a typical week, how many times do you talk on the phone with family, friends, or neighbors? Twice a week 02/07/2021 How often do you get together with friends or re latives? Never 02/07/2021 How often do you attend jainism or zoroastrian serv ices? Never 02/07/2021 Do you belong [...] Answer Date Recorded Total Score 0 02/07/2021 [facility] - Occupational Stress Questionnaire Answer Date Recorded [...] Do you need help finding a [facility] and/or a training program? [...] 02/21/2021 12:45 PM EDT [facility] in [place]. Once he is discharged he will not be getting Hyperbaric treatments. She stated they exhaustedall efforts to set something up, but it was not possible. Her number is [phone] if you would like to speak with [...] Clinical Support [facility] [address] [place] [address] [place] [address] Jessee Molina, [address] [place] [address], [address] [place] [address] documented as of this encounter [...] documented as of this encounter Care Teams Marketing And Outreach Coordinator Relationship Specialty Start Date End Date Jessee Molina DO [address] [facility], [place] [address] PCP - General Family Medicine 04/26/25 documented as of this encounter
--- OUTSIDE RECORDS SUMMARY | 2025-09-05 10:56 | XMS_ITS | Encounter Summary ---
Author Organization [facility] Address [address] [place] [address] Care Team Providers Care Program Engineer Name Role Phone Amor Fernandez MD Primary Care Provider [phone] Marilee Staples HELPDESK ADMINISTRATOR Unavailable [phone] Jonny Zhu MD Unavailable Jonny Zhu MD Primary Care Provider Jonny Zhu MD Primary Care Provider Marilee Staples HELPDESK ADMINISTRATOR Unavailable [phone] Unallocated, Noms Provider Primary Care Provi dora Encounter Details Date Type Department Care Team (Late st Contact Info) Description 04/13/2023 Abstract [facility] [address] [facility] [address] [place] [phone] Otto Esparza MD [address] [facility] [address] [place] [address] Social History Tobacco Use Types [...] on filedocumented in this encounter Care Teams Program Engineer Relationship Specialty Start Date End Date Amor Fernandez MD PCP - General Gastroenterology 04/14/23 10/31/23 Jonny Zhu MD [address] [place] [phone] PCP - Devoted 08/22/23 11/21/23 Jonny Zhu MD [address] [place] [phone] PCP - General Family Medicine 11/01/23 01/05/24 Jonny Zhu MD [address] [place] [phone] PCP - General Family Medicine 01/06/24 05/29/25 Unallocated, Bonnie Lama MD [address] [place] [address] PCP - General Family Medicine 05/30/25 Marilee Staples NP Nurse Practitioner Family Medicine 07/23/23 05/29/25 Marilee Staples NP Nurse Practitioner Family Medicine 01/06/24 05/29/25 documented as of this encounter
--- OUTSIDE RECORDS SUMMARY | 2025-09-05 10:56 | XMS_ITS | Encounter Summary ---
Author Organization [facility] [employer] [facility] tem Address [facility] [place]-[id number] [address] [place] [address] Care Team Providers Care Audio Visual Facilities Engineer Name Role Phone Jessee Molina Roger SCHWARZ Primary Care Provider [phone] Encounter Details Date Type Department Care Team (Late st Contact Info) Description 06/26/2025 Orders Only [facility] [address] [place] [address] [place] [address] Ref Prov, [place] [address] Social History Tobacco Use Types Packs/Day Years [...] How often do you attend sikh or zoroastrianism serv ices? Never 02/07/2021 Do [...] Date Recorded Total Score 3 05/10/2025 [facility] - Occupational Stress Questionnaire Answer Date [...] Do you need help finding a [facility] career center and/or a training [...] Clinical Support [facility] [address] [place] [phone] Jessee Molina DO [address] [facility], [place], [place] [phone] documented as of this encounter Goals Goal Patient Goal Type Associated Problems Recent Progress Patient-Stated? Author <enter goal here> General Yes Yulia Ocasio, RN Note: Evaluation of progress towards goal: id alf facility documented as of this encounter Visit Diagnoses Not on filedocumented in this encounter Additional Health Concerns Assessment Noted Time PHQ-9 Depression Total Score: 3 05/10/20 25 9:28 AM EDT documented as of this encounter Care Teams Audio Visual Facilities Engineer Relationship Specialty Start Date End Date Jessee Molina DO [address] [facility], [place] [address] PCP - General Family Medicine 04/26/25 documented as of this encounter
--- OUTSIDE RECORDS SUMMARY | 2025-09-05 10:56 | XMS_ITS | Encounter Summary ---
Author Organization [facility] tem Address [facility] [id number] [address] [place] [address] Care Team Providers Care Local Telephone Operator Name Role Phone BrendaJessee aguilar Roger SCHWARZ Primary Care Provider [phone] Encounter Details Date Type Department Care Team (Late st Contact Info) Description 07/06/2025 [facility]phone [facility] [address] [place] [address] [place] [address] Ana Marquez CMA Social History Tobacco Use Types Packs/Day [...] Never 02/07/2021 How often do you attend tenriism or orthodoxy serv ices? Never 02/07/2021 Do you belong to any clubs o r organizations such as tenriism groups, unions, fraternal or athletic groups, or [...] PHQ-2 Answer Date Recorded Total Score 0 07/05/2025 [facility] - Occupational Stress Questionnaire Answer Date [...] Recorded Do you need help finding a [facility] career center and/or a training program? No 02/07/2021 Hunger Screening Answer Date Recorded Within the past 12 months we worried whether our food would run out before we got money to buy more. Never True 07/05/2025 Within the past 12 months th e food we bought just didn't last and we didn't have money to get more. Never True 07/05/2025 Purpose - Life Answer Date Recorded I have a purpose and direction in my life. Agree 02/07/2021 Sex and Gender Information Value Date Recorded Sex Assigned at Not on file Legal Sex Male 11:23 AM EDT Gender Identity Not on file Sexual Orientation Not on file documented as of this encounter Miscellaneous Notes * Telephone Encounter - Ana Marquez CMA - 07/06/2025 1:28 PM EDT [facility] pharmacy called stating that they are needing the dimensions of the would and how much willbe applied for insurance to approve the collagenase ointment. Please advise? documented in this encounter Plan of Treatment Upcoming Encounters Date Type Department Care Team (Late st Contact Info) Description 09/21/2025 8:30 AM EDT Clinical Support [facility] [address] [place] [phone] Jessee Molina DO 605 [facility], [facility], [place] [address] documented as of this encounter Goals Goal Patient Goal Type Associated Problems Recent Progress Patient-Stated? Author <enter goal here> General Yes Yulia Ocasio, RN Note: Evaluation of progress towards goal: dc care home facility documented as of this encounter Visit Diagnoses Not on filedocumented in this encounter Additional Health Concerns Assessment Noted Time PHQ-9 Depression Total Score: 0 07/05/20 9:25 AM EDT documented as of this encounter Care Teams Local Telephone Operator Relationship Specialty Start Date End Date Jessee Molina DO [address] [facility], [facility], [place] [address] PCP - General Family Medicine 04/26/25 documented as of this encounter
--- OUTSIDE RECORDS SUMMARY | 2025-09-05 10:56 | XMS_ITS | Clinical Summary ---
Author Organization [facility] Address [address], [address] [place] [address] Care Team Providers Care Employment Service Specialist Name Role Phone Marilee Staples APRN, NP [...] Not on file Insurance MEDICARE Care Teams Employment Service Specialist Relationship Specialty Start Date End Date Marilee Staples, WRAPPER HAND - MEDICAL CHEMIST [address] [place] [address] PCP - General Nurse Practitioner 03/26/21
--- OUTSIDE RECORDS SUMMARY | 2025-09-05 10:56 | XMS_ITS | Clinical Summary ---
Author Organization [facility] Address [address] [place] [address] Care Team Providers Care Flight Attendant/Inflight Supervisor Name Role Phone Unavailable Primary Care [...] with long-term current use of insulin 11/06/2020 Social History Tobacco Use Types Packs/Day Years Used Date Smoking Tobacco: Never Passive Smoke Exposure: Never Smokeless Tobacco: Never Tobacco Cessation:Counseling Given: Not Answered Area Deprivation Index Answer Date Diego rded National Score (1-100), lower number is lower ri sk 87 10/24/2024 State Score (1-10), lower number is lower risk 8 10/24/2024 Data from: https://www.neighborhoodatlas.medicine.[facility].edu/. Last address used for calculation [address] 10/24/2024 Sex and Gender Information [...] 07/11/2025 04/10/2025, 04/22, 05/01/2024, Additional history exists Covid-19 Vaccine (1 - 2024-2 6 season) 2025 Influenza Vaccine (#1) 2025 DTaP,Tdap,Td Vaccine (2 - Td or Tdap) 01/04/2033 01/04/2023 Procedures Procedure Name Priority Date/Time Associated Diagnosis Comments HEMOGLOBIN A1C Routine 04/10/2025 11:25 AM EDT Gastroparesis from Last 3 Months or Most Recently Relevant to Health Maintenance Results * (ABNORMAL) HEMOGLOBIN A1C (04/10/2025 11:25 AM EDT) Hemoglobin A1C 11.0(H) 4.3 - 5.6 % 04/10/2025 9:27 PM EDT [facility] Comment:[place] Diabetes As sociation guidelines indicate that patients with HgbA1c in the range 5.7-6.4% are at increased risk for development of diabetes, and intervention by lifestyle modification may be beneficial. HgbA1c greater or equal to 6.5% is considered diagnostic of diabetes. Estimated Average Glucose 269 mg/dL 04/10/2025 9:27 PM EDT [facility] Comment:eAG: (Estimated aver age glucose) is a calculated value from HgbA1c and is outreach representative of the average blood glucose level in the last 2-3 month period. Blood BLOOD SPECIMEN / Unknown Venipuncture / Unknown 04/10/2025 11:25 AM EDT 04/10/2025 11:28 AM EDT us Jessee Figueredo DO LABORATORY Final Result [facility] [address] [address], [place] from Last 3 Months or Most Recently Relevant to Health Maintenance Insurance [employer] MEDICARE
--- OUTSIDE RECORDS SUMMARY | 2025-09-05 10:56 | XMS_ITS | Encounter Summary ---
Author Organization [facility] Address [address] [facility] [place] [address] Care Team Providers Care Claims Clerk Name Role Phone Amor Fernandez MD Primary Care Provider [phone] Marilee Staples HORTICULTURAL NURSERY ASSISTANT Unavailable [phone] Jonny Zhu MD Unavailable Jonny Zhu MD Primary Care Provider [phone] Jonny Zhu MD Primary Care Provider [phone] Marilee Staples HORTICULTURAL NURSERY ASSISTANT Unavailable [phone] Unallocated, Noms Provider Primary Care Provi dora Encounter Details Date Type Department Care Team (Late st Contact Info) Description 10/31/2023 Abstract [facility] [address] [place] [address] Marilee Staples HORTICULTURAL NURSERY ASSISTANT [address] [address] [place] [address] Social History Tobacco Use Types Packs/Day Years [...] on filedocumented in this encounter Care Teams Claims Clerk Relationship Specialty Start Date End Date Amor Fernandez MD PCP - General Gastroenterology 04/14/23 10/31/23 Jonny Zhu MD [address] [place] [phone] PCP - Devoted 08/22/23 11/21/23 Jonny Zhu MD [address] [place] [phone] PCP - General Family Medicine 11/01/23 01/05/24 Jonny Zhu MD [address] [place] [phone] PCP - General Family Medicine 01/06/24 05/29/25 Unallocated, Bonnie Lama MD [address] [place] [address] PCP - General Family Medicine 05/30/25 Marilee Staples NP Nurse Practitioner Family Medicine 07/23/23 05/29/25 Marilee Staples NP Nurse Practitioner Family Medicine 01/06/24 05/29/25 documented as of this encounter
--- OUTSIDE RECORDS SUMMARY | 2025-09-05 10:56 | XMS_ITS | Encounter Summary ---
Author Organization [facility] Address [id number] [address] [place] [address] Care Team Providers Care Student Support Counselor Name Role Phone Jessee Molina DO Primary Care Provider [phone] Reason for Visit * Reason Comments Med Change Request Encounter Details Date Type Department Care Team (Late st Contact Info) Description 07/05/2025 Refill [facility] [address] [place] [address] [place] [address] Jessee Molina DO 605 [facility], [address], [place] [address] Ulcer of right foot with fat layer exposed ([facility]) Social History Tobacco Use Types Packs/Day Years Used Date Smoking Tobacco: Never Smokeless Tobacco: Never Alcohol Use Standard Drinks/Week Comments Not Currently 0 (1 standard drink = 0.6 oz pur e alcohol) quit 2005 Social Connection and Isolation Panel Answer Date Recorded In a typical week, how many times do you talk on the phone with family, friends, or neighbors? Twice a week 02/07/2021 How often do you get together with friends or re latives? Never 02/07/2021 How often do you attend hindu or confucianism serv ices? Never 02/07/2021 Do you belong to any clubs o r organizations such as hindu groups, unions, fraternal or athletic groups, or [...] Answer Date Recorded Total Score 0 07/05/2025 [facility]at ional Health - [...] Telephone Encounter - Jessee Molina DO - 07/05/2025 1:17 PM EDT He will have to get prescription for Santyl from his bindery machine setter as I do not know the dimensions of the wound. documented in this encounter Plan of Treatment Upcoming Encounters Date Type Department Care Team (Late st Contact Info) Description 09/21/2025 8:30 AM EDT Clinical Support [facility] [address] [place] [phone] Jessee Molina DO 605 [facility], [facility], [place] [address] documented as of this encounter Goals Goal Patient Goal Type Associated Problems Recent Progress Patient-Stated? Author <enter goal here> General Yes Yulia Ocasio, RN Note: Evaluation of progress towards goal: dc [facility] facility documented as of this encounter Visit Diagnoses Diagnosis Ulcer of right foot with fat layer exposed ([facility]) documented in this encounter Additional Health Concerns Assessment Noted Time PHQ-9 Depression Total Score: 0 07/05/20 9:25 AM EDT documented as of this encounter Care Teams Student Support Counselor Relationship Specialty Start Date End Date Jessee Molina DO [address] [facility], [facility] [address], [place] [address] PCP - General Family Medicine 04/26/25 documented as of this encounter
--- OUTSIDE RECORDS SUMMARY | 2025-09-05 10:56 | XMS_ITS | Encounter Summary ---
Author Organization [facility] Address [address] [facility] [place] [address] Care Team Providers Care Firearms Expert Name Role Phone Marilee Staples CORRECTIONAL AGENCY DIRECTOR Unavailable [phone] Jonny Zhu MD Primary Care Provider [phone] Marilee Staples CORRECTIONAL AGENCY DIRECTOR Unavailable [phone] Unallocated, Iraida Lama MD Primary Care Provi dora Reason for Visit * Reason Comments Med Refill Encounter Details Date Type Department Care Team (Late st Contact Info) Description 02/28/2025 Refill [facility] [address] [place] [address] Marilee Staples CORRECTIONAL AGENCY DIRECTOR [address] [facility] [place] [address] Primary hypertension Social History Tobacco Use Types [...] No 01/06/2024 Social Connection and Isolation Panel Answer Date Recorded In a typical week, how many times do you talk on the phone with family, friends, or neighbors? Never 01/06/2024 How often do you get together with friends or re latives? Never 01/06/2024 How often do you attend mu-ism or tenriism serv ices? Never 01/06/2024 Do you belong to any clubs o r organizations such as mu-ism groups, unions, fraternal or athletic groups, or [...] Recorded Patient Health Questionnaire-2 Score 0 03/13/2024 [facility] - Occupational Stress Questionnaire Answer [...] documented as of this encounter Care Teams Firearms Expert Relationship Specialty Start Date End Date Jonny Zhu MD PCP - General Family Medicine 01/06/24 05/29/25 Unallocated, Iraida Lama MD [address] [place] [address] PCP - General Family Medicine 05/30/25 Marilee Staples NP Nurse Practitioner Family Medicine 07/23/23 05/29/25 Marilee Staples NP Nurse Practitioner Family Medicine 01/06/24 05/29/25 documented as of this encounter
--- OUTSIDE RECORDS SUMMARY | 2025-09-05 10:56 | XMS_ITS | Encounter Summary ---
Author Organization [facility] Address [address] [facility] [place] [address] Care Team Providers Care Machine Maintenance Servicer Name Role Phone Marilee Staples MOTION PICTURE COMMENTATOR Unavailable [phone] Jonny Zhu MD Primary Care Provider [phone] Marilee Staples MOTION PICTURE COMMENTATOR Unavailable [phone] Unallocated, Iraida Lama MD Primary Care Provi dora Reason for Visit * Reason Comments Med Refill Encounter Details Date Type Department Care Team (Late st Contact Info) Description 06/10/2024 Refill [facility] [address] [place] [address] Marilee Staples MOTION PICTURE COMMENTATOR [address] [facility] [place] [address] Primary hypertension Social History Tobacco Use Types [...] How often do you attend bahai or church serv ices? Never 01/06/2024 Do [...] 0 03/13/2024 [facility] - Occupational Stress Questionnaire Answer [...] place to sleep or slept in a alf (including now)? No 01/06/2024 Sex and Gender [...] documented as of this encounter Care Teams Machine Maintenance Servicer Relationship Specialty Start Date End Date Jonny Zhu MD PCP - General Family Medicine 01/06/24 05/29/25 Unallocated, Iraida Lama MD [address] [place] [address] PCP - General Family Medicine 05/30/25 Marilee Staples NP Nurse Practitioner Family Medicine 07/23/23 05/29/25 Marilee Staples NP Nurse Practitioner Family Medicine 01/06/24 05/29/25 documented as of this encounter
--- OUTSIDE RECORDS SUMMARY | 2025-09-05 10:56 | XMS_ITS | Encounter Summary ---
Author Organization [facility] tem Address [facility] [place]-[id number] [address] [place] [address] Care Team Providers Care Concrete Batching Plant Operator Name Role Phone Jessee Molina DO Primary Care Provider [phone] Encounter Details Date Type Department Care Team (Late st Contact Info) Description 08/30/2025 Telephone [facility] Medication Management [address] [address] Brianna Ocasio MA Social History Tobacco Use Types Packs/Day Years [...] How often do you attend sabianist or cheondoism serv ices? Never 02/07/2021 Do you belong [...] PHQ-2 Answer Date Recorded Total Score 0 08/10/[address] [facility] - Occupational Stress Questionnaire Answer [...] Recorded Do you need help finding a [facility] career center and/or a training program? No 02/07/2021 Hunger Screening Answer Date Recorded Within the past 12 months we worried whether our food would run out before we got money to buy more. Sometimes True 025 Within the past 12 months th e food we bought just didn't last and we didn't have money to get more. Sometimes True 08/10/2025 Purpose - Life Answer Date Recorded I have a purpose and direction in my life. Agree 02/07/2021 Sex and Gender Information Value Date Recorded Sex Assigned at Not on file Legal Sex Male 11:23 AM EDT Gender Identity Not on file Sexual Orientation Not on file documented as of this encounter Miscellaneous Notes * Telephone Encounter - Brianna Ocasio MA - 08/30/2025 1:02 PM EDT The patient was a no show today. Biomedical Photographer LVMeghann requesting patient call back to schedule another appointment. documented in this encounter Plan of Treatment Upcoming Encounters Date Type Department Care Team (Late st Contact Info) Description 09/21/2025 8:30 AM EDT Clinical Support [facility] [address] [place] [phone] Jessee Molina DO 605 [facility], [facility], [place] [address] documented as of this encounter Goals Goal Patient Goal Type Associated Problems Recent Progress Patient-Stated? Author <enter goal here> General Yes Yulia Ocasio, RN Note: Evaluation of progress towards goal: dc long term facility documented as of this encounter Visit Diagnoses Not on filedocumented in this encounter Additional Health Concerns Assessment Noted Time PHQ-9 Depression Total Score: 0 08/10/20 10:16 AM EDT documented as of this encounter Care Teams Concrete Batching Plant Operator Relationship Specialty Start Date End Date Jessee Molina DO [address] [facility], [place], [place] [phone] PCP - General Family Medicine 04/26/25 documented as of this encounter
--- OUTSIDE RECORDS SUMMARY | 2025-09-05 10:56 | XMS_ITS | Encounter Summary ---
Author Organization [employer] tem Address [facility][id number] [address] [place] [address] Care Team Providers Care Gang Head Saw Operator Name Role Phone Jessee Molina DO Primary Care Provider [phone] Encounter Details Date Type Department Care Team (Late st Contact Info) Description 02/25/[address] [facility] [address] [place] [address] Radha Dockery CMA Social History [...] Never 02/07/2021 How often do you attend voodoo or yazidism serv ices? Never 02/07/2021 Do you belong to any clubs o r organizations such as voodoo groups, unions, fraternal or athletic groups, or [...] Answer Date Recorded Total Score 0 02/07/2021 [facility] of Occupat ional Health - Occupational Stress [...] Recorded Do you need help finding a [facility] career center and/or a training program? [...] 10:21 AM EDT Spoke to Kathrine at [facility] in [place] [phone] to inform her that the order for [...] with duration faxed to attention Kathrine at [place]. documented in this encounter Plan of Treatment Upcoming Encounters Date Type Department Care Team (Late st Contact Info) Description 09/21/2025 8:30 AM EDT Clinical Support [facility] [address] [place] [address] [place] [address] Jessee Molina, [address] [place] [address], [facility], [place] [address] documented as of this encounter Goals Goal Patient Goal Type Associated Problems Recent Progress Patient-Stated? Author <enter goal here> General Yes Yulia Ocasio, RN Note: Evaluation of progress towards goal: dc long-term facility documented as of this encounter Visit Diagnoses Not on filedocumented in this encounter Additional Health Concerns Infection Onset Date Last Indicated Resolved Time COVID-19 Rule-Out 08/29/2021 08/29/2021 08/30/2021 11:54 PM EDT Assessment Noted Time PHQ-9 Depression Total Score: 0 02/08/20 21 1:19 PM EDT documented as of this encounter Care Teams Gang Head Saw Operator Relationship Specialty Start Date End Date Jessee Molina DO [address] [facility], [place] [address] PCP - General Family Medicine 04/26/25 documented as of this encounter
--- OUTSIDE RECORDS SUMMARY | 2025-09-05 10:56 | XMS_ITS | Encounter Summary ---
Author Organization [facility] tem Address [id number] [address] [place] [address] Care Team Providers Care Organic Preparation Analyst Name Role Phone Jessee Molina DO Primary Care Provider [phone] Encounter Details Date Type Department Care Team (Late st Contact Info) Description 07/17/2025 Patient Assistance [facility] Medication Management [address] [place] [phone] Medication Management, [facility] [address] [place] [address] Social History Tobacco Use Types Packs/Day Years [...] Never 02/07/2021 How often do you attend uatsdin or hinduism serv ices? Never 02/07/2021 Do you belong to any clubs o r organizations such as uatsdin groups, unions, fraternal or athletic groups, or [...] Answer Date Recorded Total Score 0 08/10/2025 [facility] of Occupat ional Health - [...] Recorded Do you need help finding a [facility] career center and/or a training [...] encounter Miscellaneous Notes * Telephone Encounter - Olamide Luna - 07/17/2025 11:58 AM EDT [employer] Patient assistance application faxed to Dr. Jessee Molina's office at [phone] forprovider signature. To follow up call [phone]. [employer] Patient assistance application faxed to Dr. Jessee Molina's office at [phone] for provider signature. To follow up call [phone]. * Telephone Encounter - Olamide Luna - 07/17/2025 11:58 AM EDT Alejandra [employer] Patient assistance application faxed to [employer] at [phone] for enrollment. To follow up call [phone]. [employer] Patient assistance application faxed to [employer] at [phone] for enrollment. To follow up call [phone]. * Telephone Encounter - lOamide Luna - 07/17/2025 11:58 AM EDT Fax received from [employer], the patient has been Approved to receive NovoFine [place] & Novolog through the program until 11/21/2025. Patient's shipment will be received at Jessee Molina's office in 10-14 business days. . Documents uploaded to media tab. * Telephone Encounter - Olamide Luna - 07/17/2025 11:58 AM EDT Fax received from [employer], the patient has been Approved to receive Lantus through the program until11/21/2025. Patient's shipment will be received at Dr. Jessee Molina's office in automatic shipments every 90 days. . Documents uploaded to media tab. * Telephone Encounter - Chiquis Solimanakilah - 07/17/2025 11:58 AM EDT Alejandra [employer] Patient assistance Refill form faxed to Dr Jessee Molina at [phone] for provider signature. To follow up call [phone]. documented in this encounter Plan of Treatment Upcoming Encounters Date Type Department Care Team (Late st Contact Info) Description 09/21/2025 8:30 AM EDT Clinical Support [facility] [address] [place] [phone] Jessee Molina DO [address] [facility], [place] [address] documented as of this encounter Goals Goal Patient Goal Type Associated Problems Recent Progress Patient-Stated? Author <enter goal here> General Yes Yulia Ocasio, RN Note: Evaluation of progress towards goal: dc halfway facility documented as of this encounter Visit Diagnoses Not on filedocumented in this encounter Additional Health Concerns Assessment Noted Time PHQ-9 Depression Total Score: 0 07/05/20 9:25 AM EDT documented as of this encounter Care Teams Organic Preparation Analyst Relationship Specialty Start Date End Date Jessee Molina DO [address] [facility], [place], [place] [id number] PCP - General Family Medicine 04/26/25 documented as of this encounter
--- OUTSIDE RECORDS SUMMARY | 2025-09-05 10:56 | XMS_ITS | Encounter Summary ---
Author Organization [employer] tem Address [id number] [address] [place] [address] Care Team Providers Care Electronic Organ Technician Name Role Phone BrendaJessee aguilar Roger SCHWARZ Primary Care Provider [phone] Encounter Details Date Type Department Care Team (Late st Contact Info) Description 03/11/2021 Telephone [facility] [address] [place] [address] Ghulam Brooke, DPM [address] [facility] [address] [place] [address] Social History Tobacco Use Types Packs/Day Years [...] Never 02/07/2021 How often do you attend sabianism or lutheran serv ices? Never 02/07/2021 Do you belong to any clubs o r organizations such as sabianism groups, unions, fraternal or athletic groups, or [...] Total Score 0 02/07/2021 [facility] of Occupat ional Health - Occupational Stress [...] EDT Clinical Support [facility] [address] [place] [address] [place] [address] Jessee Molina, 605 [facility], [facility] [address], [place] [address] documented as of this encounter [...] documented as of this encounter Care Teams Electronic Organ Technician Relationship Specialty Start Date End Date Jessee Molina DO 605 [facility], [facility], [place] [address] PCP - General Family Medicine 04/26/25 documented as of this encounter
--- OUTSIDE RECORDS SUMMARY | 2025-09-05 10:56 | XMS_ITS | Encounter Summary ---
Author Organization [employer] [facility] tem Address [facility]-[id number] [address] [place] [address] Care Team Providers Care Vehicle Mechanic Name Role Phone Jessee Molina DO Primary Care Provider [phone] Encounter Details Date Type Department Care Team (Late st Contact Info) Description 08/27/2025 Telephone [facility] [address] [place] [address] [place] [address] Jessee Molina DO 605 [facility], [facility] [address], [place] [address] Social History Tobacco Use Types Packs/Day Years [...] Never 02/07/2021 How often do you attend jain or adventist serv ices? Never 02/07/2021 Do you belong to any clubs o r organizations such as jain groups, unions, fraternal or athletic groups, or [...] Answer Date Recorded Total Score 0 08/10/2025 [facility] of Occupat ional Health - [...] Recorded Do you need help finding a [facility] career center and/or a training program? No [...] encounter Miscellaneous Notes * Telephone Encounter - Sangeetha Ivory - 08/27/2025 2:12 PM EDT Patient presenting to office requesting refill of amox/k clav 875-125 MG tab to [facility]. Please advise * Telephone Encounter - Danielle Masters CNA - 08/27/2025 2:12 PM EDT Spoke with patient, he states he would like a refill for this medication. Spoke with him and he states he is still having symptoms Please advise? * Telephone Encounter - Jessee Molina DO - 08/27/2025 2:12 PM EDT Prescription for Augmentin 875/125 mg 1 tablet twice daily for 14 days sent into [facility] [place], [place] documented in this encounter Plan of Treatment Upcoming Encounters Date Type Department Care Team (Late st Contact Info) Description 09/21/2025 8:30 AM EDT Clinical Support [facility] [address] [place] [address] [place] [address] Jessee Molina DO 605 [facility], [place] [address] documented as of this encounter Goals Goal Patient Goal Type Associated Problems Recent Progress Patient-Stated? Author <enter goal here> General Yes Yulia Ocasio, RN Note: Evaluation of progress towards goal: pa senior care facility documented as of this encounter Visit Diagnoses Diagnosis Ulcer of right foot with fat layer exposed (CMS-HCC)- Primary documented in this encounter Additional Health Concerns Assessment Noted Time PHQ-9 Depression Total Score: 0 08/10/20 25 10:16 AM EDT documented as of this encounter Care Teams Vehicle Mechanic Relationship Specialty Start Date End Date Jessee Molina DO 605 [facility], [facility] [address], [address] [place] [phone] PCP - General Family Medicine 04/26/25 documented as of this encounter
--- OUTSIDE RECORDS SUMMARY | 2025-09-05 10:56 | XMS_ITS | Encounter Summary ---
Author Organization [facility] Address [address] [place] [address] Care Team Providers Care Advisor Consultant Name Role Phone Unavailable Primary Care Provider Unavailabl e Source Comments In the event this information is protected by the Federal Confidentiality of Alcohol and Drug AbusePatient Records regulations: The Federal rules restrict any use of the information to criminally investigate or prosecute any alcohol or drug abuse patient.[facility] Encounter Details Date Type Department Care Team (Late st Contact Info) Description 04/09/2025 Patient Msg Gastroenterology [address] [id number] Javi Thakkar, Research Coordinator Social History Tobacco Use Types Packs/Day Years Used Date Smoking Tobacco: Never Passive Smoke Exposure: Never Smokeless Tobacco: Never Area Deprivation Index Answer Date Diego rded National Score (1-100), lower number is lower ri sk 87 10/24/2024 State Score (1-10), lower number is lower risk 8 10/24/2024 Data from: https://www.neighborhoodatlas.medicine.[facility].edu/. Last address used for calculation [address] 10/24/2024 Sex and Gender Information Value Date Recorded Sex Assigned at Not on file Legal Sex Male 3:23 PM EDT Gender Identity Not on file Sexual Orientation Not on file documented as of this encounter Plan of Treatment Not on file documented as of this encounter Visit Diagnoses Not on filedocumented in this encounter
--- OUTSIDE RECORDS SUMMARY | 2025-09-05 10:56 | XMS_ITS | Encounter Summary ---
Author Organization [facility] Address [address] [place] [address] Care Team Providers Care Seasonal Retail Merchandiser Name Role Phone Marilee Staples NP Unavailable [phone] Jonny Zhu MD Primary Care Provider Marilee Staples NP Unavailable [phone] Unallocated, Noms Kelby GAITAN Primary Care Provi dora Encounter Details Date Type Department Care Team (Late st Contact Info) Description 05/02/2024 Orders Only [facility] [address] [place] [address] Marilee Staples NP [address] [place] [phone] Social History Tobacco Use Types Packs/Day Years [...] Never 01/06/2024 How often do you attend worship or taoist serv ices? Never 01/06/2024 Do you belong to any clubs o r organizations such as worship groups, unions, fraternal or athletic groups, or [...] Patient Health Questionnaire-2 Score 0 03/13/2024 [facility] - [facility]ational Stress Questionnaire Answer [...] place to sleep or slept in a fdc (including now)? No 01/06/2024 Sex and Gender [...] Test (05/01/2024 10:08 AM EDT) Marilee Staples REFERENCE LIBRARIAN LAB BLOOD ORDERABLES Final Resu lt documented in this encounter Visit Diagnoses Not on filedocumented in this encounter Additional Health Concerns Assessment Noted Time PHQ-9 Depression Total Score: 3 01/06/20 24 4:38 PM EST documented as of this encounter Care Teams Seasonal Retail Merchandiser Relationship Specialty Start Date End Date Jonny Zhu MD PCP - General Family Medicine 01/06/24 05/29/25 Unallocated, Noms MD Kelby [address] [place] [address] PCP - General Family Medicine 05/30/25 Marilee Staples NP Nurse Practitioner Family Medicine 07/23/23 05/29/25 Marilee Staples NP Nurse Practitioner Family Medicine 01/06/24 05/29/25 documented as of this encounter
--- OUTSIDE RECORDS SUMMARY | 2025-09-05 10:56 | XMS_ITS | Encounter Summary ---
Author Organization [facility] tem Address [facility]-[id number] [address] [place] [address] Care Team Providers Care Distance Learning Coordinator Name Role Phone BrendaJessee aguilar Roger SCHWARZ Primary Care Provider [phone] Encounter Details Date Type Department Care Team (Late st Contact Info) Description 08/24/2025 [facility]phone [facility] [address] [place] [address] [place] [address] Ana Marquez CMA Social History [...] Never 02/07/2021 How often do you attend mu-ism or gnosticism serv ices? Never 02/07/2021 Do you belong [...] Answer Date Recorded Total Score 0 08/10/2025 [facility] - Occupational Stress Questionnaire Answer [...] Telephone Encounter - Ana Marquez CMA - 08/24/2025 10:18 AM EDT Attempted to call patient and inform him on [employer] in office for him to pickle cutter in office, no answer, left voicemail. documented in this encounter Plan of Treatment Upcoming Encounters Date Type Department Care Team (Late st Contact Info) Description 09/21/2025 8:30 AM EDT Clinical Support [facility] [address] [place] [phone] Jessee Molina DO 605 [facility], [facility] [address], [place] [address] documented as of this encounter Goals Goal Patient Goal Type Associated Problems Recent Progress Patient-Stated? Author <enter goal here> General Yes Yulia Ocasio, RN Note: Evaluation of progress towards goal: dc alf facility documented as of this encounter Visit Diagnoses Not on filedocumented in this encounter Additional Health Concerns Assessment Noted Time PHQ-9 Depression Total Score: 0 08/10/20 10:16 AM EDT documented as of this encounter Care Teams Distance Learning Coordinator Relationship Specialty Start Date End Date Jessee Molina DO [address] [facility], [facility] [address], [facility] [place] [address] PCP - General Family Medicine 04/26/25 documented as of this encounter
--- OUTSIDE RECORDS SUMMARY | 2025-09-05 10:56 | XMS_ITS | Encounter Summary ---
Author Organization [facility] Address [address] [facility] [place] [address] Care Team Providers Care Healthcare Applications Analyst Name Role Phone Marilee Staples MICA MINER Unavailable [phone] Jonny Zhu MD Primary Care Provider [phone] Marilee Staples MICA MINER Unavailable [phone] Unallocated, Bonnie Provider Primary Care Provi dora Reason for Visit * Reason Comments Med Refill Encounter Details Date Type Department Care Team (Late st Contact Info) Description 10/21/2024 [facility] [address] [facility] [place] [address] Marilee Staples MICA MINER [address] [facility] [place] [place] [address] Uncontrolled type 2 diabetes mellitus with hyperglycemia, [...] Never 01/06/2024 How often do you attend sabianism or episcopalian serv ices? Never 01/06/2024 Do you belong [...] Health Questionnaire-2 Score 0 03/13/2024 [facility] of Occupat ional Health - [...] documented as of this encounter Care Teams Healthcare Applications Analyst Relationship Specialty Start Date End Date Jonny Zhu MD PCP - General Family Medicine 01/06/24 05/29/25 Unallocated, Bonnie Lama MD [address] [place] [address] PCP - General Family Medicine 05/30/25 Marilee Staples NP Nurse Practitioner Family Medicine 07/23/23 05/29/25 Marilee Staples NP Nurse Practitioner Family Medicine 01/06/24 05/29/25 documented as of this encounter
--- OUTSIDE RECORDS SUMMARY | 2025-09-05 10:56 | XMS_ITS | Clinical Summary ---
Author Organization [employer] tem Address [id number] [address] [place] [address] Care Team Providers Care Insurance Claims Assistant Name Role Phone Jessee Molina DO Primary Care Provider [phone] Allergies Active Allergy Reactions Criticality Noted Date Comments Bee Venom Protein (Honey Bee) Other (See Comments) Medium 11/05/2020 Local swelling Medications dorzolamide (TRUSOPT) 2 % ophthalmic solutionIndication s:ocular [...] 1 DROP INTO LEFT EYE AT BEDTIME 03/28/20 25 Active BD VERO 2ND GEN PEN NEEDLE 32 gauge x 5/32 needle 1 Pen Needle by other route 3 (three) times a day. 05/02/20 25 Active blood-glucose meter kitIndications:Typ e 2 diabetes mellitus with foot ulcer, with long-term current use of insulin ([facility]) Use as instructed 1 each 05/16/20 25 Active doxycycline (MONODOX) 100 mg capsule TAKE 1 CAPSULE BY MOUTH TWICE DAILY FOR 14 DAYS 06/22/20 25 Active clopidogreL (PLAVIX) 75 mg tablet Take 1 tablet (75 mg total) by mouth. 06/29/20 25 Active collagenase (SantyL) ointmentIndication s:Ulcer of right foot with fat layer exposed ([facility]) Apply 1 Application topically in the morning. 30 g 07/05/20 25 Active famotidine (PEPCID) 40 mg tabletIndications: Gastroesophageal reflux disease, unspecified whether esophagitis present Take 1 tablet (40 mg total) by mouth in the morning and 1 tablet (40 mg total) before bedtime. 60 tablet 2 07/05/20 25 Active blood sugar diagnostic (ACCU-CHEK GUIDE TEST STRIPS) stripIndications:T ype 2 diabetes mellitus with foot ulcer, with long-term current use of insulin ([facility]) 1 strip by other route 3 (three) times a day. 100 strip 3 07/06/20 25 Active pantoprazole (PROTONIX) 40 mg EC tabletIndications: Gastroesophageal reflux disease, unspecified whether esophagitis present Take 1 tablet (40 mg total) by mouth in the morning. 90 tablet 08/10/20 25 Active hydroCHLOROthiazid e (HYDRODIURIL) 12.5 mg tabletIndications: Benign essential HTN Take 1 tablet (12.5 mg total) by mouth daily. 90 tablet 08/10/20 25 Active celecoxib (CeleBREX) 100 mg capsuleIndications :Chronic midline low back pain without sciatica Take 1 capsule (100 mg total) by mouth in the morning. 30 capsule 2 08/10/20 25 Active atorvastatin (LIPITOR) 80 mg tabletIndications: hyperlipidemia Take 1 tablet (80 mg total) by mouth daily with breakfast for 360 days Indications: excessive fat in the blood. 90 tablet 3 08/10/20 25 026 Active niacin (NIASPAN) 500 mg CR tabletIndications: Mixed hyperlipidemia due to type 2 diabetes mellitus ([facility]) Take 1 tablet (500 mg total) by mouth nightly. 90 tablet 1 08/10/20 25 Active lisinopriL (PRINIVIL,ZESTRIL) 10 mg tabletIndications: Benign essential HTN,Type 2 diabetes mellitus with foot ulcer, with long-term current use of insulin ([facility]) Take 1 tablet (10 mg total) by mouth in the morning for 360 days. 90 tablet 3 08/10/20 25 026 Active semaglutide (OZEMPIC) 0.25 mg or 0.5 mg (2 mg/3 mL) pen injectorIndication s:Type 2 diabetes mellitus with other circulatory complication, with long-term current use of insulin ([facility]) Inject 0.5 mg under the skin every 7 days. 2 mL 08/10/20 25 Active insulin NPH (HumuLIN N,NovoLIN N) 100 unit/mL injectionIndicatio ns:Type 2 diabetes mellitus with foot ulcer, with long-term current use of insulin ([facility]) 38 units in the morning and 40 units at nighttime 10 mL 3 08/10/20 25 Active amoxicillin-pot clavulanate (AUGMENTIN) 875-125 mg per tabletIndications: Ulcer of right foot with fat layer exposed ([facility]) Take 1 tablet by mouth in the morning and 1 tablet before bedtime. Do all this for 14 days. 28 tablet 08/27/20 25 025 Active lisinopriL (PRINIVIL,ZESTRIL) 10 mg tabletIndications: hypertension Take 1 tablet (10 mg total) by mouth daily with breakfast for 90 days Indications: high blood pressure. 90 tablet 05/10/20 25 025 atorvastatin (LIPITOR) 40 mg tabletIndications: hyperlipidemia Take 1 tablet (40 mg total) by mouth daily with breakfast for 360 days Indications: excessive fat in the blood. 90 tablet 3 05/10/20 25 025 Discontinu ed(Reorder ) hydroCHLOROthiazid e (HYDRODIURIL) 12.5 mg tabletIndications: Benign essential HTN Take 1 tablet (12.5 mg total) by mouth daily. 90 tablet 05/10/20 25 025 Discontinu ed(Reorder ) pantoprazole (PROTONIX) 40 mg EC tabletIndications: Gastroesophageal reflux disease, unspecified whether esophagitis present Take 1 tablet (40 mg total) by mouth in the morning. 90 tablet 05/10/20 25 025 Discontinu ed(Reorder ) celecoxib (CeleBREX) 100 mg capsuleIndications :Chronic midline low back pain without sciatica Take 1 capsule (100 mg total) by mouth in the morning. 30 capsule 2 05/10/20 25 025 Discontinu ed(Reorder ) insulin aspart U-100 (NovoLOG Flexpen U-100 Insulin) 100 unit/mL (3 mL) insulin penIndications:Typ e 2 diabetes mellitus with foot ulcer, with long-term current use of insulin ([facility]) Sliding scale with pre meal blood sugars three times per day ( max dose 36 units/day) 15 mL 1 05/10/20 25 025 Discontinu ed(Therapy completed) insulin glargine (LANTUS SOLOSTAR U-100 INSULIN) 100 unit/mL (3 mL) insulin penIndications:Typ e 2 diabetes mellitus with foot ulcer, with long-term current use of insulin ([facility]) Inject 30 Units under the skin in the morning and 30 Units before bedtime. 18 mL 1 05/10/20 25 025 Discontinu ed(Reorder ) omeprazole (PriLOSEC) 40 mg capsule Take 1 capsule (40 mg total) by mouth in the morning. 025 Discontinu ed(Duplica te Listing) semaglutide (OZEMPIC) 0.25 mg or 0.5 mg (2 mg/3 mL) pen injectorIndication s:Type 2 diabetes mellitus with other circulatory complication, with long-term current use of insulin ([facility]) Inject 0.25 mg under the skin every 7 days. 2 mL 07/16/20 25 025 Discontinu ed(Reorder ) insulin glargine (LANTUS SOLOSTAR U-100 INSULIN) 100 unit/mL (3 mL) insulin penIndications:Typ e 2 diabetes mellitus with foot ulcer, with long-term current use of insulin ([facility]) Inject 36 Units under the skin in the morning and 36 Units before bedtime. 66 mL 1 08/10/20 25 025 Discontinu ed(Patient Never Started This Medication ) amoxicillin-pot clavulanate (AUGMENTIN) 875-125 mg per tabletIndications: Ulcer of right foot with fat layer exposed ([facility]),Type 2 diabetes mellitus with other circulatory complication, with long-term current use of insulin ([facility]) Take 1 tablet by mouth in the morning and 1 tablet before bedtime. Do all this for 14 days. 28 tablet 08/10/20 25 025 Active Problems Problem Noted Date Diagnosed Date Peripheral artery disease 07/06/2025 Assessment & Plan (07/06/2025 2:46 PM EDT): Patient with moderate to severe peripheral artery disease based on studies from hospitalization earlier in June. Patient scheduled to have vascular procedure on 07/09. Improvement in vascular function will help with diabetic foot ulcer heal Chronic midline low back pain without sciatica [...] (08/07/2021): Added automatically from request for surgery [id number] Osteomyelitis of left foot 04/17/2021 Diabetes mellitus 03/21/2021 Assessment & Plan (07/06/2025 2:42 PM EDT): Patient diabetes is uncontrolled. Due to financial restrictions, he is unable to afford insulin which he uses to control blood sugar. Patient's last hemoglobin A1c from April 2025 was 11.5%. Discussed with patient the importance of blood sugar control. Since patient having difficulty affording the cost of medications we will refer patient to the [facility] medical management team for diabetes to aid with patient assistance and management of blood sugars for tighter control.. Assessment & Plan (05/10/2025 12:58 PM EDT): [...] (03/19/2021): Added automatically from request for surgery [id number] Wound, open, foot with compl ication, left, initial encounter 02/24/2021 Sepsis 02/07/2021 Diabetic ulcer of right midf oot associated with type 2 diabetes mellitus, with muscle involvement without evidence of necrosis 02/07/2021 Chronic osteomyelitis of left foot with draining sinus 02/07/2021 Encounters Date Type Department Care Team Description 08/30/2025 Telephone [facility] - Pharmacy Medication Management [address] [facility] [place] [address] Brianna Ocasio MA 08/27/2025 [facility]phone [facility] Medicine [address] [place] [address] [place] [address] Jessee Molina DO 08/24/2025 [facility] [address] [place] [address] [place] [address] Ana Marquez CMA 08/16/2025 [facility] [place] [address] Ana Marquez CMA 08/13/2025 8:00 AM EDT Clinical Support [facility] - Pharmacy Medication Management [address] [place] [address] 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 ([facility]) [E11.628, L84] (Primary Dx) 08/10/2025 10:00 AM EDT [facility] [address] [place] [phone] Jessee Molina, Type 2 diabetes mellitus with other circulatory complication, with long-term current use of insulin ([facility]) (Primary Dx); Type 2 diabetes mellitus with foot ulcer, with long-term current use of insulin ([facility]); Benign essential HTN; Mixed hyperlipidemia due to type 2 diabetes mellitus ([facility]); Gastroesophageal reflux disease, unspecified whether esophagitis present; Chronic midline low back pain without sciatica; Ulcer of right foot with fat layer exposed ([facility]) 08/10/2025 Travel 07/17/2025 Patient Assistance [facility] - Pharmacy Medication Management [address] [facility] [place] [address] Medication Management, [facility] 07/17/2025 Results [facility] [address] [place] [phone] Jessee Molina, Lipid panel 07/16/2025 8:00 AM EDT Clinical Support [facility] - Pharmacy Medication Management [address] [place] [address] Type 2 diabetes mellitus with other circulatory complication, with long-term current use of insulin ([facility]) (Primary Dx) 07/16/2025 Travel 07/06/2025 [facility]phone [facility] [address] [place] [phone] Ana Marquez CMA 07/05/2025 9:30 AM EDT [facility] [address] [place] [phone] Badik, Jessee D, DO Ulcer of right foot with fat layer exposed ([facility]) (Primary Dx); Type 2 diabetes mellitus with foot ulcer, with long-term current use of insulin ([facility]); Hyperlipidemia, unspecified hyperlipidemia type; Gastroesophageal reflux disease, unspecified whether esophagitis present; Peripheral artery disease 07/05/2025 [facility] [address] [place] [phone] Jessee Molina, DO Type 2 diabetes mellitus with foot ulcer, with long-term current use of insulin ([facility]) 07/05/2025 Refill [facility] [address] [place] [address] Jessee Molina, DO Ulcer of right foot with fat layer exposed ([facility]) 07/05/2025 Telephone [facility] - Pharmacy Medication Management [address] [address] Medication Management, [facility] 07/05/2025 Travel 06/26/2025 Orders Only [facility] [address] [place] [address] [place] [phone] Ref Prov, Not In System 06/07/2025 11:30 AM EDT - 06/07/2025 11:59 PM EDT Hospital Encounter [facility] - Radiology [address] [place] [address] Right foot ulcer, with unspecified severity ([facility]) Discharge Disposition: Home 06/07/2025 Travel from Last 3 Months Immunizations No [...] How often do you attend sabianism or muslim serv ices? Never 02/07/2021 Do [...] Answer Date Recorded Total Score 0 08/10/2025 [facility] - [...] Sign Reading Time Taken Comments Blood Pressure 115/72 08/13/2025 8:17 AM EDT Pulse 94 08/13/2025 8:17 AM EDT Temperature 36.4 C (97.6 F) 08/10/2025 10:17 AM EDT Respiratory Rate 16 04/24/2025 9:00 AM EDT Oxygen Saturation 96% 08/10/2025 10:17 AM EDT Inhaled Oxygen Concentration - - Weight 112.9 kg (249 lb) 08/13/2025 8:17 AM EDT Height 174 cm (5' 8.5 ) 04/26/2025 2:12 PM EDT Body Mass Index 37.31 04/26/2025 2:12 PM EDT Plan of Treatment Upcoming Encounters Date Type Department Care Team (Late st Contact Info) Description 09/21/2025 8:30 AM EDT Clinical Support [facility] [address] [place] [address] [place] [address] Jessee Molina, [address] [place] [address], [address], [place] [address] Health Maintenance Due Date Last Done Comments Diabetic Ophthalmology Exam 1966 Adult BMI Follow Up Plan 1984 Zoster (Shingles) Vaccine (1 of 2) 2016 Diabetic Foot Exam 04/17/2022 04/17/2021, 02/07/2021 Influenza Vaccine 07/23/2025 Depression Screening 08/10/2026 08/10/2025 Statin Use: Cardiovascular 08/10/2026 08/10/2025 Statin Use: Diabetic 08/10/2026 08/10/2025 Tobacco Screening 08/10/2026 08/10/2025 Adult BMI Screening 08/13/2026 08/13/2025 DTaP,Tdap and Td Vaccines (2 - Td or Tdap) 01/04/2033 01/04/2023 Goals Goal Patient Goal Type Associated Problems Recent Progress Patient-Stated? Author <enter goal here> General Yes Yulia Ocasio, RN Note: Evaluation of progress towards goal: dc long-term facility Medical Devices Implanted Type Area Rpg Programmer Analyst Device Identifier Shelf Expiration Date Model / Serial / Lot Cmnt Bn Bio 40gm Rpl [id number] - [id number] Implanted:Qty : 2 on 02/07/2021 by Ghulam Brooke DPM at [facility] Cement N/A: Foot [employer] 11/21/2024 [id number] / / [id number] Lens Iol Ultrasert 18.5d - [id number] - [id number] Implanted:Qty : 1 on 12/28/2019 by Debra Trejo MD at [facility] Lens Right: Eye [employer] 07/22/2022 [id number] 18.5 / [id number] / NA Explanted Type Area Rpg Programmer Analyst Device Identifier Shelf Expiration Date Model / Serial / Lot Pin Fx 9in in Stnm Ft 2 - [id number] Explanted:Qty: 4 on 04/18/2021 at [facility] Pin [employer] [id number] / / Description: wilfrid dewitt from tray (smooth wilfrid pins double ended) Procedures Procedure Name Priority Date/Time Associated Diagnosis Comments LIPID PROFILE Routine 07/16/2025 9:20 AM EDT Type 2 diabetes mellitus with foot ulcer, with long-term current use of insulin ([facility]) Hyperlipidemia, unspecified hyperlipidemia type XR FOOT RT MIN 3 VWS WEIGHT BEARING Routine 06/07/2025 11:53 AM EDT Right foot ulcer, with unspecified severity (CMS-HCC) from Last 3 Months Results * (ABNORMAL) Lipid panel (07/16/2025 9:20 AM EDT) CHOLESTEROL 198 150 - 200 mg/dL 07/16/2025 3:26 PM EDT [facility] TRIGLYCERIDE 179(H) 27 - 150 mg/dL 07/16/2025 3:26 PM EDT [facility] HDL CHOLESTEROL 34(L) >39 mg/dL 3:26 PM EDT [facility] Comment: HDL <40 mg/dL - High Risk HDL > or = 40mg/dL- Desirable HDL >60 mg/dL - Negative Risk LDL (CALC) 128 <130 mg/dL 07/16/2025 3:26 PM EDT [facility] Comment: LDL <100 mg/dL - Desirable LDL >160 mg/dL - High Risk CHOLESTEROL:HDL 5.8(H) 1.0 - 5.0 3:26 PM EDT [facility] VERY LOW LIPOPROTEIN 36(H) 0 - 30 mg/dL 07/16/2025 3:26 PM EDT [facility] Blood Venous blood / Unknown Venipuncture / Unknown 07/16/2025 9:20 AM EDT 07/16/2025 9:20 AM EDT us Jessee Molina DO LAB BLOOD ORDERABLES Final Re sult [facility] [address] [place] [address], [place] [phone] * X-ray foot right 3 views weight [...] IMPadmaja DIAGNOSTIC IMAGING OR DERABLES Final Result from Last 3 Months Insurance [employer] MED[employer]ARE Advance Directives * Full Code (Latest Code Status on File) Date Activated Date Inactivated Comments 04/17/2021 12:59 PM 04/21/2021 5:08 PM * Full Code Date Activated Date Inactivated Comments 02/07/2021 2:54 AM 02/13/2021 1:11 AM Care Teams Insurance Claims Assistant Relationship Specialty Start Date End Date Jessee Molina DO [address] [place] [address], [place] [address] PCP - General Family Medicine 04/26/25
--- OUTSIDE RECORDS SUMMARY | 2025-09-05 10:56 | XMS_ITS | Clinical Summary ---
Author Organization [facility] Healthcare Address [address] [place] [address] Care Team Providers Care Test Manager Name Role Phone Unallocated, Noms Provider Primary [...] hyperglycemia, with long-term current use of insulin ([facility]) Take 1 tablet (1,000 mg) by [...] hyperglycemia, with long-term current use of insulin ([facility]) Take 1 tablet (40 mg) by mouth in the evening 100 tablet 4 Active DULoxetine (Cymbalta) [address] capsuleIndication s:Type 2 diabetes mellitus with diabetic neuropathy, with long-term current use of insulin ([facility]) Take 1 capsule (30 mg) by [...] that we could order from [facility] in [place] as they can bill DME, he then [...] 01/06/2024 Anxiety, generalized 01/06/2024 Encounter for subsequent [facility] wellness visit (AWV) in Medicare patient [...] duloxetine as well as elavil Has established counselor dormitory Assessment & Plan (11/02/2023 3:11 PM EST): [...] (10/27/2023): Added automatically from request for surgery [id number] Hyperlipidemia 03/21/2021 Assessment & Plan (11/02/2023 3:09 PM EST): Cont statin Check labs Cellulitis 01/24/2014 Resolved Problems Problem Noted Date Diagnosed Date Resolved Date Open wound of toe 10/27/2023 01/06/2024 Charcot's joint of foot, left 03/19/2021 01/06/2024 Overview (10/27/2023): Added automatically from request for surgery [id number] Wound, open, foot with compl ication, left, [...] Never 01/06/2024 How often do you attend congregation or hinduism serv ices? Never 01/06/2024 Do you belong [...] 03/13/2024 [facility] - Occupational Stress Questionnaire Answer Date [...] place to sleep or slept in a half-way (including now)? No 01/06/2024 Sex and Gender [...] - 30.0 mg/g creat [facility] Comment:PERFORMED AT [address],[place] [address] 05/01/2024 11:2 9 AM EDT 05/01/2024 11:30 AM EDT Marilee Staples SYSTEM OPERATION SUPERINTENDENT LAB URINE ORDERABLES Final Resu lt Performing Organization Address [facility] Co de Phone Number [facility] [...] AVERAGE GLUCOSE 278 mg/dL [facility] Comment:PERFORMED AT [address],[place] [address] 05/01/2024 11:2 9 AM EDT 05/01/2024 11:30 AM EDT Marilee Staples SYSTEM OPERATION SUPERINTENDENT LAB BLOOD ORDERABLES Final Resu lt Performing Organization Address City/[facility] de Phone Number [facility] from Last 3 Months or Most Recently Relevant to Health Maintenance Insurance [employer] MED[employer]ARE [employer]AGE Care Teams Test Manager Relationship Specialty Start Date End Date Unallocated, Noms Provider, [address] [place] [address] PCP - General Family Medicine 05/30/25
--- OUTSIDE RECORDS SUMMARY | 2025-09-05 10:56 | XMS_ITS | Encounter Summary ---
Author Organization [facility] tem Address [id number] [address] [place] [address] Care Team Providers Care Tar Roofer Name Role Phone Jessee Molina Roger SCHWARZ Primary Care Provider [phone] Encounter Details Date Type Department Care Team (Late st Contact Info) Description 02/24/2021 Orders Only [facility] - Wound Care Outpatient [address] [place] [phone] Rashel Feldman MD [address] [facility] [place], [place] [id number] Wound, open, foot with complication, left, initial encounter (Primary Dx); Diabetic ulcer of left midfoot associated with type 2 diabetes mellitus, with necrosis of bone ([facility]) Social History Tobacco Use Types Packs/Day [...] How often do you attend catholic or bahai serv ices? Never 02/07/2021 Do [...] Answer Date Recorded Total Score 0 02/07/2021 [facility] - Occupational [...] Do you need help finding a l al career center and/or a training program? No [...] Clinical Support [facility] [address] [place] [phone] Jessee Molina DO [address] [facility], [place], [place] [phone] documented as of this encounter Goals Goal Patient Goal Type Associated Problems Recent Progress Patient-Stated? Author <enter goal here> General Yes Yulia Ocasio, RN Note: Evaluation of progress towards goal: dc half-way facility documented as of this encounter Visit Diagnoses Diagnosis Wound, open, foot with complication, left, initial encounter- Primary Diabetic ulcer of left midfoot associated with type 2 diabetes mellitus, with necrosis of bone ([facility]) documented in this encounter Additional Health Concerns Infection Onset Date Last Indicated Resolved Time COVID-19 Rule-Out 08/29/2021 08/29/2021 08/30/2021 11:54 PM EDT Assessment Noted Time PHQ-9 Depression Total Score: 0 02/08/20 21 1:19 PM EDT documented as of this encounter Care Teams Tar Roofer Relationship Specialty Start Date End Date Jessee Molina DO [address] [facility], [place], [place] [phone] PCP - General Family Medicine 04/26/25 documented as of this encounter
--- OUTSIDE RECORDS SUMMARY | 2025-09-05 11:15 | XMS_ITS | CCD ---
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 Metal Worker Name Role Phone JAVI FIGUEROA Admitting Unavailable JAVI FIGUEROA Attending Unavailable JAVI FIGUEROA Referring Unavailable SELF, REFERRED Primary Care Unavailable PHU BUCK Attending Unavailable CHENG STAPLES Primary Care Unavailable Cheng Staples Primary Care Provider [phone] SYSTEM, PROVIDER NOT IN Referring Unavaila FLAKO Alexandre Admitting Unavail able CHENG STAPLES Primary Care Unavailable PALAK ARORA Attending UnavailMARVEL Espino Unavailable EZIKE, MARCELLA ANICETUS Admitting Unavaila ble EZIKE, MARCELLA ANICETUS Attending Unavaila ble CHENG STAPLES Primary Care Unavailable DILIP, LEANNE NELDARY Admitting Unavailable LEANNE CHERRY Attending Unavailable CHENG STAPLES Primary Care Unavailable EZIKE, MARCELLA ANICETUS Admitting Unavaila ble EZIKE, MARCELLA ANICETUS Attending Unavaila ble CHENG STAPLES Primary Care Unavailable DILIP, LEANNE SABRY Admitting Unavailable DILIPLEANNE BECK Attending Unavailable CHENG STAPLES Primary Care Unavailable DILIP, LEANNE NELDARY Attending Unavailable DILIP, LEANNE NELDARY Referring Unavailable AICCHENG MENON Primary Care Unavailable DILIPLEANNERY Attending Unavailable DILIP, LEANNE SABRY Referring Unavailable CHENG STAPLES Primary Care Unavailable DILIP, LEANNE SABRY Admitting Unavailable DILIP, LEANNE NELDARY Attending Unavailable CHENG STAPLES Primary Care Unavailable DILIP, LEANNE NELDARY Attending Unavailable DILIP, LEANNE NELDARY Referring Unavailable CHENG STAPLES Primary Care Unavailable DILIP, LEANNE SABRY Admitting Unavailable DOMKA, MADY Attending Unavailable LEANNE CHERRY Referring Unavailable CHENG STAPLES Primary Care Unavailable [...] Unavailable MARKER ., DR MANRIQUE Attending Unavailable AICHROSALIA KNAPP CHENG Primary Care Unavailable EV POPE Consulting Unavailab Maxi Thomson Unavailable Iva Black Unavailable MapusSebastián Unavailable Bel [employer], Cheng Unavailable Jonny Zhu MD Primary Care Provider Bel [employer], Cheng Unavailable Cheng Staples Primary Care Provider Cheng Staples Attending Provider [phone] Cheng Staples Primary Care Provider MD Karrie Imnew Attending Provider [phone] CHENG STAPLES Attending Unavailable CHENG STAPLES Attending Unavailable CHENG STAPLES Attending Unavailable Cheng Staples Primary Care Provider MD Tracy Yoon Attending Provider Unavailable Primary Care Provider Unavailke Staples EDGE BEADER-Cheng LINDSEY Primary Care Provider ART FIGUEREDO Referring Unavailable Art Freeman DO Primary Care Provider ART FIGUEREDO Attending Unavailable ASAAD, IMAD Referring Unavailable JEROME DEL TORO Attending Unavailable ASAAD, IMAD Referring Unavailable COURTNEY GLOVER Attending Unavailable FIGUEREDO, ART S Referring Unavailable DAVIDA PRICE Attending Unavailable ASAAD, IMAD Referring Unavailable AichholCheng kramer Primary Care Provider [phone] Ashley EPSTEIN-Cathy Wynn Attending Provider Chan Quintanilla MD Attending Provider NON STAFF Primary Care Provider Unavailabl e BADIK, ART D Attending Unavailable AICCHENG MENON Referring Unavailable BADIK, ART D Primary Care Unavailable BADIK, ART D Attending Unavailable BADIK, ART D Referring Unavailable BADIK, ART D Primary Care Unavailable BADIK, ART D Attending Unavailable BADIK, ART D Referring Unavailable BADIK, ART D Primary Care Unavailable BADIK, ART D Attending Unavailable BADIK, ART D Referring Unavailable BADIK, ART D Primary Care Unavailable NO PCP, NO PCP Primary Care Unavailable CAM CLIFFORD Attending Unavailable SHERRI GARCIA Attending Unavailable AICHHOLZCHENG Referring Unavailable AICHHOLZ, CHENG Dasilva Primary Care Unavailable SHERRI GARCIA Attending Unavailable AICHHOLZ, CHENG Dasilva Referring Unavailable AICHHOLZ, CHENG J Primary Care Unavailable SHERRI GARCIA Attending Unavailable AICHHOLZ, CHENG J Referring Unavailable AICHHOLZ, CHENG J Primary Care Unavailable BADIK, ART D Referring Unavailable BADIK, ART D Primary Care Unavailable BADIK, ART D Referring Unavailable BADIK, ART D Primary Care Unavailable BADIK, ART D Referring Unavailable BADIK, ART D Primary Care Unavailable VIKTOR GANDHI Referring Unavailable BADIK, ART D Primary Care Unavailable BADIK, ART D Referring Unavailable BADIK, ART D Primary Care Unavailable BADIK, ART D Referring Unavailable BADIK, ART D Primary Care Unavailable BADIK, ART D Referring Unavailable BADIK, ART D Primary Care Unavailable Aichholz Cheng BRITO Primary Care Provider Cathy Hathaway Attending Provider [phone] Chan Quintanilla MD Other Provider [phone] Chan Quintanilla Attending UnavailChan Ramos Admitting Unavailabl e NON STAFF Primary Care Unavailable Cathy Leggett Attending Unavailable Cathy Leggett Admitting Unavailable NON STAFF Primary Care Unavailable Chan Quintanilla Attending UnavailChan Ramos Admitting Unavailabl e Cheng Staples Primary Care Unavailable Allergies Allergy Classification Reported Allergen(s) Allergy Type Date of Onset Reaction(s) Facility (1 source) Allergic rhinitis due to pollen; Translations: [hayfever] Propensity to adverse reactions (disorder) 7 [facility] Repository (1 source) bee venom Drug allergy (disorder) [facility] Repository (1 source) Honey bee venom Propensity to adverse reactions 0 Swelling [facility] (1 source) Bee pollen Allergy to substance 0 Unknown Reaction [facility] (20 sources) bee venom protein (honey bee); Translations: [BEE VENOM PROTEIN (HONEY BEE)] Allergy to substance 0 Other (See Comments) [facility] (8 sources) Venom-Honey Bee; Translations: [VENOM-HONEY BEE] Drug Allergy 0 Anaphylaxis, Other: See Comments, Swelling [facility] Medications Current Medications Medication Drug Class(es) Dates Sig (Normalized) Sig (Original) amitriptyline hydrochloride 25 mg oral tablet (1 source) Tricyclic Antidepressant Start: 11-25-2023 take 1 tablet by mouth every twenty-four hours Amitriptyline HCl 25 MG 1 tablet at bedtime Orally Once a day for 30 days Nov, Active amoxicillin 875 mg / clavulanate 125 mg oral tablet (14 sources) Penicillin-class Antibacterial Start: 08-27-2025 End: 09-10-2025 take 1 tablet by mouth once in the morning amoxicillin-pot clavulanate (AUGMENTIN) 875-125 mg per tablet Indications: Ulcer of right foot with fat layer exposed ([facility]) Take 1 tablet by mouth in the morning and 1 tablet before bedtime. Do all this for 14 days. 28 tablet 08/27/2025 09/10/2025 Active Start: 08-10-2025 End: 08-24-2025 take 1 tablet by mouth once in the morning amoxicillin-pot clavulanate (AUGMENTIN) 875-125 mg per tablet Indications: Ulcer of right foot with fat layer exposed (CMS-HCC) , Type 2 diabetes mellitus with other circulatory complication, with long-term current use of insulin (CMS-HCC) Take 1 tablet by mouth in the morning and 1 tablet before bedtime. Do all this for 14 days. 28 tablet 08/10/2025 08/24/2025 Active Start: 07-09-2025 take 1 tablet by anjelica th once daily Start: 06-22-2025 End: 07-16-2025 take 1 tablet by mouth twice daily amoxicillin-pot clavulanate (AUGMENTIN) 875-125 mg per tablet TAKE 1 TABLET BY MOUTH TWICE DAILY FOR 14 DAYS 06/22/2025 07/16/2025 Discontinued (Therapy completed) Start: 04-11-2025 End: 04-21-2025 take 1 tablet [...] 10 days. 20 tablet 03/28/2025 04/07/2025 Active aspirin 81 mg oral tablet (4 sources) Platelet Aggregation Inhibitor, Nonsteroidal Anti-inflammatory Drug Start: 06-28-2025 take 1 tablet by mouth once daily atorvastatin 80 mg oral tablet (20 sources) HMG-CoA Reductase Inhibitor Start: 08-10-2025 End: 08-05-2026 take 1 tablet by mouth once daily at breakfast atorvastatin (LIPITOR) 80 mg tablet Indications: hyperlipidemia Take 1 tablet (80 mg total) by mouth daily with breakfast for 360 days Indications: excessive fat in the blood. 90 tablet 3 08/10/2025 08/05/2026 Active Start: 01-18-2020 End: 05-05-2026 take 1 tablet by mouth once daily Lipitor Active blood-glucose meter kit (14 sources) Start: 05-16-2025 blood-glucose meter kit Indications: Type 2 diabetes mellitus with foot ulcer, with long-term current use of insulin ([facility]) Use as instructed 1 each 05/16/2025 Active celecoxib 100 mg oral capsule (19 sources) Nonsteroidal Anti-inflammatory Drug Start: 05-10-2025 End: 08-10-2025 take 1 capsule by mouth in the morning celecoxib (CeleBREX) 100 mg capsule Indications: Chronic midline low back pain without sciatica Take 1 capsule (100 mg total) by mouth in the morning. 30 capsule 2 08/10/2025 Active cephalexin 500 mg oral capsule (2 sources) Cephalosporin Antibacterial Start: 01-09-2021 End: 01-23-2021 take 1 capsule by mouth three times daily cephALEXin (KEFLEX) 500 MG capsule Take 1 (one) capsule (500 mg total) by mouth 3 (three) times a day for 14 days . 42 capsule 0 01/09/2021 01/23/2021 Active cholecalciferol 0.125 mg oral capsule (20 sources) Vitamin D Start: 02-02-2024 take 1 capsule by mouth once daily Start: 01-04-2023 take 1 capsule by mo uth in the morning cholecalciferol (Vitamin D-3) 25 MCG (1000 UT) capsule Take 1,000 Units by mouth in the morning. 0 01/04/2023 Active take 1 capsule by mo uth in the morning cholecalciferol, vitamin D3, 2,000 units capsule Take 1 capsule (2,000 Units total) by mouth in the morning. Active clopidogrel 75 mg oral tablet (16 sources) P2Y12 Platelet Inhibitor Start: 06-28-2025 clopidogreL (PLAVIX) 75 mg tablet Take 1 tablet (75 mg total) by mouth. 06/29/2025 Active collagenase 0.25 unt/mg topical ointment (12 sources) Collagen-specific Enzyme Start: 07-05-2025 collagenase (SantyL) ointment Indications: Ulcer of right foot with fat layer exposed ([facility]) Apply 1 Application topically in the morning. 30 g 07/05/2025 Active dorzolamide 20 mg/ml ophthalmic solution (20 sources) Carbonic Anhydrase Inhibitor take 1 drop(s) into the eye(s) in the morning dorzolamide (TRUSOPT) 2 % ophthalmic solution Indications: ocular hypertension Administer 1 drop to the right eye in the morning and 1 drop before bedtime. Indications: increased pressure in the eye. Active doxycycline monohydrate 100 mg oral capsule (14 sources) Tetracycline-class Drug Start: 06-22-2025 take 1 capsule by mouth twice daily doxycycline (MONODOX) 100 mg capsule TAKE 1 CAPSULE BY MOUTH TWICE DAILY FOR 14 DAYS 06/22/2025 Active DULoxetine 30 mg delayed release oral capsule (1 source) Serotonin and Norepinephrine Reuptake Inhibitor take 1 capsule by mouth in the morning DULoxetine (Cymbalta) [address] capsule Take 30 mg by mouth in the morning. 0 Active famotidine 40 mg oral tablet (20 sources) Histamine-2 Receptor Antagonist Start: 07-05-2025 take 1 tablet by mouth in the morning, then take 1 tablet by mouth at bedtime famotidine (PEPCID) 40 mg tablet Indications: Gastroesophageal reflux disease, unspecified whether esophagitis present Take 1 tablet (40 mg total) by mouth in the morning and 1 tablet (40 mg total) before bedtime. 60 tablet 2 07/05/2025 Active Start: 05-09-2024 take 1 tablet by anjelica th once daily Start: 08-25-2023 End: 04-26-2025 famotidine (PEPCID) 40 mg ta blet Take 40 mg by mouth. 01/07/2024 Active Start: 03-05-2023 take 1 tablet by [...] 0 Active hydroCHLOROthiazide 12.5 mg oral tablet (20 sources) Thiazide Diuretic Start : 06-19 End: 08-10 take 1 tablet by mouth once daily hydroCHLOROthiazide (HYDRODIURIL) 12.5 mg tablet Indications: Benign essential HTN Take 1 tablet (12.5 mg total) by mouth daily. 90 tablet 08/10/2025 Active insulin isophane, human 100 unt/ml injectable suspension (10 sources) Start : 07-09 insulin NPH (HumuLIN N,NovoLIN N) 100 unit/mL injection Indications: Type 2 diabetes mellitus with foot ulcer, with long-term current use of insulin ([facility]) 38 units in the morning and 40 units at nighttime 10 mL 3 08/10/2025 Active Start: 07-09-2025 insulin regular, human (NOVOLIN R INJECTION) (2 sources) insulin regular, human (NOVOLIN R INJECTION) by INJECTION(UNSPECIFIED PARENTERAL ROUTES) route. Active ketorolac tromethamine 5 mg/ml ophthalmic solution (8 sources) Nonsteroidal Anti-inflammatory Drug, Cyclooxygenase Inhibitor ketorolac (Acul ar) 0.5 % ophthalmic solution Administer 1 drop [...] day Active latanoprost 0.05 mg/ml ophthalmic solution (20 sources) Prostaglandin Analog Start: 02-02-2024 take 1 drop(s) into the [...] Angiotensin Converting Enzyme Inhibitor Start: 01-18-2020 End: 08-05-2026 take 1 tablet by mouth in the morning lisinopriL (PRINIVIL,ZESTRIL) 10 mg tablet Indications: Benign essential HTN , Type 2 diabetes mellitus with foot ulcer, with long-term current use of insulin ([facility]) Take 1 tablet (10 mg total) by mouth in the morning for 360 days. 90 tablet 3 08/10/2025 08/05/2026 Active Lisinopril Activ e Netarsudil-Latanoprost (ROCKLATAN OP) (1 source) take 1 drop(s) into the eye(s) at bedtime Netarsudil-Latanoprost (ROCKLATAN OP) Administer 1 drop into affected eye(s) at bedtime 0 Active 24 hr niacin 500 mg extended release oral tablet (6 sources) Nicotinic Acid Start : 08-10 take 1 tablet by mouth once daily niacin (NIASPAN) 500 mg CR tablet Indications: Mixed hyperlipidemia due to type 2 diabetes mellitus ([facility]) Take 1 tablet (500 mg total) by mouth nightly. 90 tablet 1 08/10/2025 Active pantoprazole 40 mg delayed release oral tablet (20 sources) Proton Pump Inhibitor Start : 08-25 End: 08-10 take 1 tablet by mouth in the morning pantoprazole (PROTONIX) 40 mg EC tablet Indications: Gastroesophageal reflux disease, unspecified whether esophagitis present Take 1 tablet (40 mg total) by mouth in the morning. 90 tablet 08/10/2025 Active Start: 02-02-2020 End: 05-10-2025 take 1 tablet by mouth in the morning pantoprazole (PROTONIX) 40 mg EC tablet Indications: Gastroesophageal reflux disease, unspecified whether esophagitis present Take 1 tablet (40 mg total) by mouth in the morning. 90 tablet 05/10/2025 Active semaglutide (OZEMPIC) 0.25 m g or 0.5 mg (2 mg/3 mL) pen injector (10 sources) Start: 08-10-2025 semaglutide (O ZEMPIC) 0.25 mg or 0.5 mg (2 mg/3 mL) pen injector Indications: Type 2 diabetes mellitus with other circulatory complication, with long-term current use of insulin ([facility]) Inject 0.5 mg under the skin every 7 days. 2 mL 08/10/2025 Active Start: 07-16-2025 End: 08-10-2025 semaglutide (OZEMPIC) 0.25 m g or 0.5 mg (2 mg/3 mL) pen injector Indications: Type 2 diabetes mellitus with other circulatory complication, with long-term current use of insulin (CMS-HCC) Inject 0.25 mg under the skin every 7 days. 2 mL 07/16/2025 08/10/2025 Discontinued (Reorder) Start: 07-16-2025 semaglutide (O ZEMPIC) 0.25 mg or 0.5 mg (2 mg/3 mL) pen injector Indications: Type 2 diabetes mellitus with other circulatory complication, with long-term current use of insulin (CMS-HCC) Inject 0.25 mg under the skin every 7 days. 2 mL 07/16/2025 Active sucralfate 1000 mg oral tablet (2 [...] PRN (RT), wheezing, shortness of breath, Starting Wed11/05/20 at 1920 alteplase (CATH BERTHA) injection 2 [...] January 18, 2020 1:00am per sliding scale 3 ml insulin glargine 100 unt/ml pen injector (20 sources) Insulin Analog Start: 08-10-2025 End: 08-10-2025 inject 36 [IU] by subcutaneous injection in the morning insulin glargine (LANTUS SOLOSTAR U-100 INSULIN) 100 unit/mL (3 mL) insulin pen Indications: Type 2 diabetes mellitus with foot ulcer, with long-term current use of insulin ([facility]) Inject 36 Units under the skin in the morning and 36 Units before bedtime. 66 mL 1 08/10/2025 08/10/2025 Discontinued (Patient Never Started This Medication) Start: 05-10-2025 End: 08-10-2025 inject 30 [IU] by subcutaneous injection in the morning insulin glargine (LANTUS SOLOSTAR U-100 INSULIN) 100 unit/mL (3 mL) insulin pen Indications: Type 2 diabetes mellitus with foot ulcer, with long-term current use of insulin ([facility]) Inject 30 Units under the skin in the morning and 30 Units before bedtime. 18 mL 1 05/10/2025 08/10/2025 Discontinued (Reorder) Start: 04-26-2025 End: 05-10-2025 inject 0.3 mL by subcutaneous injection once daily insulin glargine (LANTUS) 100 unit/mL injection Indications: Type 2 diabetes mellitus with foot ulcer, with long-term current use of insulin ([facility]) Inject 0.3 mL (30 Units total) under [...] glargine (LANTUS) injection 25 Units Start: 01-18-2020 End: 05-09-2024 inject 28 [IU] by subcutaneous injection once daily at bedtime Insulin Glargine (Lantus U-100 Insulin) 100 unit/mL Solution Discontinued 28 UNIT SUBCUT Daily at bedtime January 18, 2020 1:00am May 09, 2024 2:20pm Start: 01-18-2020 End: 01-07-2024 inject 38 [IU] by subcutaneous injection once daily in the morning Insulin Glargine 100 unit/mL (3 mL) insulin pen Discontinued 38 UNIT SUBCUT Every morning January [...] 0 11/21/2020 Discontinued (Stop Taking at Discharge) Insulin Glargine (Lantus U-100 Insulin) 100 unit/mL [...] with long-term current use of insulin ([facility]) 70-150 0 units 151-174 2 units 175-199 [...] Humalog . 10 mL 0 11/20/2020 Active 3 ml insulin aspart, human 100 unt/ml pen injector (20 sources) Insulin Analog Start: 05-10-2025 End: 08-10-2025 insulin aspart U-100 (NovoLOG Flexpen U-100 Insulin) 100 unit/mL (3 mL) insulin pen Indications: Type 2 diabetes mellitus with foot ulcer, with long-term current use of insulin ([facility]) Sliding scale with pre meal blood sugars three times per day ( max dose 36 units/day) 15 mL 1 05/10/2025 08/10/2025 Discontinued (Therapy completed) Start: 01-18-2020 End: 05-09-2024 Insulin Aspart U-100 (Novolo g Flexpen U-100 Insulin) 100 unit/mL (3 mL) Insulin Pen Discontinued 0 UNIT SUBCUT As Directed January 18, 2020 1:00am May 09, 2024 2:20pm per sliding scale End: 04-26-2025 insulin aspart [...] 0 11/21/2020 Discontinued (Stop Taking at Discharge) Lidocaine (2 sources) Antiarrhythmic, Amide Local Anesthetic [...] sources) Biguanide Start: 01-18-2020 End: 04-26-2025 take 1 tablet by mouth twice daily Metformin 1,000 mg tablet Discontinued 1000 MG PO Twice daily January [...] omeprazole 40 mg delayed release oral capsule (14 sources) Proton Pump Inhibitor Start: 08-25-2022 End: 08-10-2025 Omeprazole 40 MG 1 capsule 30 minutes [...] Problem Date Documented Date Episodic/Chronic Abdominal pain (12 sources) Epigastric pain; Translations: [Epigastric pain] 06-28-2025 Episodic Administrative/social admission (1 source) Dietary counseling and surveillance Episodic Anxiety disorders (3 sources) Generalized anxiety disorder; Translations: [Generalized anxiety disorder] Onset: 01-06-2024 01-06-2024 Chronic Bacterial infection; unspecified site (1 source) Infection by methicillin sensitive Staphylococcus aureus; Translations: [MSSA (methicillin susceptible Staphylococcus aureus) infection] Episodic Chronic ulcer of skin (20 sources) Non-pressure chronic ulcer of other part [...] mellitus without complications] Onset: 11-06-2020 11-06-2020 Chronic Comment on above: Problem List clean-u p per request of Phys. EHR Cmte Disorders of lipid metabolism (20 sources) Hyperlipidemia; Translations: [Hyperlipidemia, unspecified] Onset: 03-21-2021 Chronic Esophageal disorders (20 sources) Gastroesophageal reflux disease; Translations: [Gastro-esophageal reflux disease without esophagitis] Onset: 10-27-2023 Chronic Comment on above: Problem List clean-u p per request of Phys. EHR Cmte Essential hypertension (20 sources) Hypertensive disorder; Translations: [Essential (primary) hypertension] Onset: 10-27-2023 Chronic Infective arthritis and osteomyelitis (except that caused by tuberculosis or sexually transmitted disease) (20 sources) Acute osteomyelitis of foot; Translations: [Chronic osteomyelitis of foot with draining sinus] Onset: 02-07-2021 10-27-2023 Chronic Infective arthritis and osteomyelitis (except that caused by tuberculosis or sexually transmitted disease) (5 sources) Subacute osteomyelitis of left foot; Translations: [Subacute osteomyelitis of left foot (HCC)] Malaise and fatigue (3 sources) Fatigue; Translations: [Other fatigue] Onset: 05-10-2025 05-10-2025 Episodic Nausea and vomiting (20 sources) Nausea and vomiting; Translations: [Nausea with vomiting, unspecified] Onset: 04-14-2023 Episodic Nutritional deficiencies (1 source) Vitamin D deficiency; Translations: [Vitamin D deficiency, unspecified] Onset: 11-02-2023 11-02-2023 Chronic Occlusion or stenosis of precerebral arteries (7 sources) Bilateral carotid artery occlusion; Translations: [Occlusion and stenosis of bilateral carotid arteries] Onset: 08-22-2025 06-28-2025 Chronic Other acquired deformities (1 source) Retrolisthesis; Translations: [Spondylolisthesis, site unspecified] Onset: 01-06-2024 01-06-2024 Episodic Other aftercare (1 source) technician terminal and repeater (current) use of oral hypoglycemic drugs; Translations: [LONG-TERM USE ORAL HYPOGLYCEMIC DX] Onset: 03-22-2023 Episodic Other aftercare (1 source) Encounter for therapeutic drug level monitoring; Translations: [ENC THERAPEUTC DRUG LEVL MONITORING] Onset: 03-22-2023 Episodic Other aftercare (1 source) Other custodial (current) drug therapy; Translations: [OTH LONG-TERM CURRENT DRUG THERAPY] Onset: 03-22-2023 Episodic Other aftercare (7 sources) Long-term current use of insulin; Translations: [FDC (current) use of insulin] 06-28-2025 Episodic Other aftercare (2 sources) Wound finding; Translations: [Encounter for other specified aftercare] 03-28-2025 Episodic Other bone disease and musculoskeletal deformities (1 source) Amputated foot; Translations: [Acquired absence of left foot] Onset: 01-06-2024 01-06-2024 Chronic Other bone disease and musculoskeletal deformities (20 sources) History of amputation of right foot; Translations: [Acquired absence of right foot] Onset: 03-28-2025 03-28-2025 Chronic Other bone disease and musculoskeletal deformities (1 source) Acquired absence of right foot; Translations: [Acquired absence of right foot] Onset: 03-28-2025 Chronic Other disorders of stomach and duodenum (3 sources) Gastroparesis; Translations: [Gastroparesis] Onset: 04-10-2025 Episodic Other disorders of stomach and duodenum (6 sources) Gastroparesis syndrome; Translations: [Gastroparesis] 05-20-2025 Episodic Other liver diseases (20 sources) Fatty (change of) liver, not elsewhere classified; Translations: [Other chronic nonalcoholic liver disease] Onset: 04-26-2025 04-26-2025 Chronic Other liver diseases (4 sources) Steatosis of liver; Translations: [Fatty (change of) liver, not elsewhere classified] 06-28-2025 Chronic Other liver diseases (13 sources) Alkaline phosphatase raised; Translations: [Abnormal levels of other serum enzymes] Onset: 01-06-2024 01-06-2024 Episodic Other nervous system disorders (4 sources) Peripheral nerve disease ; Translations: [Polyneuropathy, unspecified] 06-28-2025 Chronic Other nervous system disorders (2 sources) Other chronic pain; Translations: [Other chronic pain] Onset: 04-27-2025 Chronic Other nervous system disorders (1 source) Abnormal gait; Translations: [Unspecified abnormalities of gait and mobility] Onset: 10-27-2023 10-27-2023 Episodic Other non-traumatic joint disorders (2 sources) Charcot arthropathy of joint of ankle; Translations: [Charcot's joint of ankle, unspecified laterality] Chronic Other non-traumatic joint disorders (20 sources) Charcot's joint of foot; Translations: [Charcot's joint, left ankle and foot] Onset: 03-19-2021 10-27-2023 Chronic Other nutritional; endocrine; and metabolic disorders (3 [...] Chronic Other nutritional; endocrine; and metabolic disorders (7 sources) Body mass index 30+ - obesity; Translations: [Obesity, unspecified] Onset: 11-02-2023 11-02-2023 Chronic Other screening for suspected conditions (not mental disorders or infectious disease) (4 sources) Patient encounter status; Translations: [Encounter for screening for malignant neoplasm of colon] Onset: 11-02-2023 11-02-2023 Episodic Other skin disorders (1 source) Atrophic disorder of skin, unspecified Episodic Other upper respiratory disease (1 source) Chronic rhinitis; Translations: [Chronic rhinitis] Onset: 04-14-2023 04-14-2023 Chronic Peripheral and visceral atherosclerosis (20 sources) Peripheral vascular disease, unspecified; Translations: [Peripheral vascular disease, unspecified] Onset: 01-06-2024 01-06-2024 Chronic Residual codes; unclassified (1 source) Family history of cardiac disorder; Translations: [Family history of ischemic heart disease and other diseases of the circulatory system] Onset: 01-06-2024 01-06-2024 Episodic Retinal detachments; defects; vascular occlusion; and retinopathy (4 sources) Retinal disorder; 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] 06-28-2025 Chronic Unclassified (2 sources) DX Onset: 12-26-2018 Unclassified (1 source) New Patient Onset: 10-24-2024 Unclassified (4 sources) FU PRN Unclassified (1 source) transitonal care visit Onset: 07-05-2025 Unclassified (2 sources) Low back pain, unspecified; Translations: [Low back pain, unspecified] Onset: 04-27-2025 Unclassified (1 source) Establish Care Onset: 04-26-2025 Unclassified (1 source) Wound Check Onset: 03-04-2025 Unclassified (1 source) Wound on Foot Onset: 03-04-2025 Past or Other Problems Problem Classification Problem Date Documented Da te Episodic/Chronic Diabetes mellitus without complication (3 sources) Hyperglycemia; Translations: [Hyperglycemia, unspecified] Onset: 03-04-2025 04-26-2025 Episodic Fracture of upper limb (1 source) Closed multiple fractures of hand bones; Translations: [Unspecified fracture of unspecified wrist and hand, initial encounter for closed fracture] Onset: 05-13-2012 10-27-2023 Episodic Mood disorders (20 sources) Mood disorders Onset: 02-07-2021 Resolved: 08-10-2025 02-07-2021 Open wounds of extremities (20 sources) Open wound of foot with complication; Translations: [Unspecified open wound, left foot, initial encounter] Onset: 09-07-2016 10-27-2023 Episodic Other aftercare (4 sources) FDC (current) use of insulin; Translations: [LONG-TERM CURRENT USE OF INSULIN] Onset: 03-21-2021 Episodic Other aftercare (2 sources) Encounter for other specified aftercare; Translations: [Encounter for other specified aftercare] Onset: 03-04-2025 Episodic Other non-traumatic joint disorders (20 sources) Instability of joint of right ankle; Translations: [Other instability, right ankle] Onset: 04-11-2025 04-11-2025 Episodic Other skin disorders (1 source) Corns and callosities; Translations: [Corns and callosities] Onset: 04-11-2025 Episodic Septicemia (except in labor) (20 sources) Sepsis; Translations: [Sepsis, unspecified organism] Onset: 02-07-2021 Resolved: 01-06-2024 01-06-2024 Episodic Skin and subcutaneous tissue infections (3 sources) Cutaneous abscess of left foot; Translations: [Cellulitis] Onset: 01-24-2014 10-27-2023 Episodic Spondylosis; intervertebral disc disorders; other back problems (20 sources) Chronic low back pain; Translations: [Chronic midline low back pain without sciatica] Onset: 04-27-2025 04-26-2025 Episodic Unclassified (3 sources) Open wound of left foot 04-11-2025 Results Test Name Value Interpretation Reference Range Facility CT angio neckon 08-22-2025 CT angio neck [place] [address] CT Scan Report Signed Patient: More Kingsley MR#: [id number] 125 : 1965 Acct:[id number] Age/Sex: 59 / M ADM Date: 08/22/25 Loc: CT Room: Type: [facility] Attending Dr: Cathy Leggett [employer] Copies to: Cathy Leggett APRN Ordering Provider: Cathy Leggett APRN Date of Service: 08/22/25 CT/CT angio head: I65.23 - Occlusion and stenosis of bilateral carotid ney... ([id number]) CT/CT angio neck: I65.23 - Occlusion and stenosis of bilateral carotid ney... CT angio head, CT angio neck 08/22/2025 9:10 AM SIGNS AND SYMPTOMS: I65.23 - Occlusion and stenosis of bilateral [...] control, adjustment of the mA and/or kV according to patient size, or use of iterative reconstruction technique. Stenoses were measured using the NASCET criteria. COMPARISON: None. FINDINGS: CTA HEAD: The superior cerebellar arteries, posterior inferior cerebellar arteries, and the basilar artery are within normal limits. The posterior cerebral arteries are unremarkable. The intracranial segments of the internal carotid [...] course and caliber. Calcified plaque is noted in the carotid bifurcations without significant stenosis. Visualized lung [...] Kidd M.D. 08/22/2025 5:14 PM Dictation Location: [place] [address] Transcribed By: [facility] 08/22/251713 Dictated By: Blair Kidd II, MD 08/22/251703 Signed By: 08/22/251713 Normal [facility] ISTAT XRay CREon 08-22-2025 ISTAT GFR >60.0 Normal [facility] Comment on above: Result Comment: PERF ORMED BY: [place] [address] PATHOLOGIST HONE OPERATOR CHE TAVARES M.D. Performed By: #### I SCRE #### [address] No Panel InformationOrdered By: Cathy Leggett on 08-22-2025 Bedside Estimated GFR (eGFR) > 60.0 [facility] Whole blood creatinine measu rementOrdered By: Cathy Leggett on 08-22-2025 Creatinine [Mass/Vol] 1.3 mg/dL Normal 0.6-1.3 [facility] Comment on above: ER/ESD physician is notified/shown all ISTAT results.Critical values may be confirmed by laboratory testing ifdeemed necessary by ER attending doctor. Result Comment: ER/E SD physician is notified/shown all ISTAT results. Critical values may be confirmed by laboratory testing if deemed necessary by ER attending doctor. Performed By: #### I SCRE #### [facility] [address] LIPID PROFILEon 07-16-2025 Cholesterol [Mass/Vol] 198 mg/dL Normal 150-200 [facility] Comment on above: Performed By: #### C BCA, CMP #### [facility] ([id number]) [address] [place] [address] Cholesterol in HDL [Mass/Vol] 34 mg/dL Low >39 [facility] Comment on above: Result Comment: HDL <40 mg/dL - High Risk HDL > or = 40mg/dL- Desirable HDL >60 mg/dL - Negative Risk Performed By: #### C BCA, CMP #### [facility] ([id number]) [address] [place] [address] Cholesterol in LDL [Mass/Vol] 128 mg/dL Normal <130 [facility] Comment on above: Result Comment: LDL <100 mg/dL - Desirable LDL >160 mg/dL - High Risk Performed By: #### C BCA, CMP #### [facility] ([id number]) [address] [place] [address] CHOLESTEROL:HDL 5.8 High 1.0-5.0 [facility] Comment on above: Performed By: #### C BCA, CMP #### [facility] ([id number]) [address] [place] [address] Triglyceride [Mass/Vol] 179 mg/dL High 27-150 [facility] Comment on above: Performed By: #### C BCA, CMP #### [facility] ([id number]) [address] [place] [address] VERY LOW LIPOPROTEIN 36 mg/dL High 0-30 [facility] Comment on above: Performed By: #### C BCA, CMP #### [facility] ([id number]) [address] [place] [address]17 Creatinineon 07-09-2025 Creatinine Clr Calc Pharmacy 72.67 Normal [facility] Comment on above: Result Comment: PERF ORMED BY: [place] [address] PATHOLOGIST HONE OPERATOR CHE TAVARES M.D. Performed By: #### B UN, CREAT #### [address] GFR/1.73 sq M.predicted MDRD (S/P/Bld) [Vol rate/Area] 57.276 mL/min/{1.73_m2} Normal [facility] Comment on above: Performed By: #### B UN, CREAT #### [address] Creatinine [Mass/volume] in Serum or PlasmaOrdered By: Chan Quintanilla on 07-09-2025 Creatinine [Mass/Vol] 1.42 mg/dL High 0.70-1.30 [facility] Comment on above: Performed By: #### B UN, CREAT #### [address] No Panel InformationOrdered By: Chan Quintanilla on 07-09-2025 Estimated GFR (CKD-EPI) 57.276 mL/Min [facility] Creatinine Clearance (Chem 72.67 [facility] Urea nitrogen [Mass/volume] in Serum or PlasmaOrdered By: Chan Quintanilla on 07-09-2025 Urea nitrogen [Mass/Vol] 26 mg/dL High 06-15 [facility] Comment on above: Performed By: #### B UN, CREAT #### [facility] [address] US UNI ankle/arm indiceson 0 07-04-2025 US UNI ankle/arm indices [facility] [address] [place] [address] Ultrasound Report Signed Patient: More Kingsley MR#: [id number] 125 : 1965 Acct:[id number] Age/Sex: 59 / M ADM Date: 06/28/25 Loc: [facility] Room: Type: 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 PROCEDURE: Right arm blood pressure is 134 , left is 138 . Pressures at the right ankle are CNO using the posterior tibial artery, and 151 using the dorsalis pedis artery with ankle-brachial index of -NC- 1.09 . Wave forms by plethysmography are normal. US/US UNI ankle/arm indices IMPRESSION: NO HEMODYNAMICALLY SIGNIFICANT PERIPHERAL VASCULAR OCCLUSIVE DISEASE AT THE RIGHT LOWER EXTREMITY. Impression dictated by: Chan Quintanilla MD,FACS,FSVS 07/04/2025 1:41 PM Dictation Location: RAD-DOC-04 Tech: Soraida Reagan Transcribed By: AMBER 07/04/25 1341 Dictated By: Chan Quintanilla MD 07/04/25 1341 Signed By: 07/04/25 1341 Normal [facility] XR FOOT RT MIN 3 VWS WEIGHT BEARINGon 06-12-2025 XR FOOT RT MIN 3 VWS WEIGHT BEARING XR FOOT RT MIN 3 VWS WEIGHT BEARING XR FOOT RT MIN 3 VWS WEIGHT BEARING HISTORY: Right foot ulcer, with unspecified severity ([facility]). COMPARISON: 03/04/2025 IMPRESSION: Unchanged indication about the metatarsals. Progressive sclerosis and irregularity of the plantar aspect remnant tarsal/metatarsal are nonspecific, infection is possible. Correlate for associated soft tissue injury, consider MR, as appropriate. Plantar and Achilles calcaneal enthesophytes. Vascular calcifications. Finalized by Thomas Schrader MD on 06/12/2025 2:05 PM Normal [facility] GENERIC ORDER #1on 06-2 TEST RESULT SEE NOTE Abnormal [facility] Comment on above: Result Comment: Test name Result Flag Units RefIntvl Testosterone, Total by Rounding Machine Operator 234.3 L ng/dL 300.0-890.0 This test was developed and its performance characteristics determined by [facility]. It has not been cleared or approved [...] Children, or Individuals on Testosterone-Suppressing Hormone Therapy) ([employer] test code 7987330). For individuals on testosterone hormone therapy, refer to cisgender male reference intervals. No reference intervals have been established for males younger than 18 years or for cisgender females. For a complete set of all established reference intervals, refer to [employer]td[employer]/Tests/Pub/[id number]. This test was developed and its performance characteristics determined by [facility]. It has not been cleared or approved by the [place] Food and Drug Administration. This test was performed in a CLIA certified laboratory and is intended for clinical purposes. Performed By: [facility] [address] [place] [address] Development Lead: Warren Simmons MD, PhD CLIA Number: [id number] Performed By: #### C MELANIA, CMP #### [facility] ([id number]) [address] [place] [address] MAGNESIUMon 05-16-2025 Magnesium [Mass/Vol] 2.0 mg/dL Normal 1.8-2.6 [facility] Comment on above: Performed By: #### C MELANIA, CMP #### [facility] ([id number]) [address] [place] [address] PROSTATIC SPECIFIC ANTIGEN S CREENon 05-16-2025 PROSTATIC SPEC ANT 0.86 ng/mL Normal 0.00-4.00 [facility] Comment on above: Result Comment: The method used for this test is TwoF DXI chemiluminescent immunoassay. Values obtained by different assay methods cannot be used interchangeably. Performed By: #### C MELANIA, CMP #### [facility] ([id number]) [address] [place] [address]277 TESTOSTERONE, TOTAL AND FREE , Son 05-16-2025 TESTOSTERONE, TOTAL AND FREE, S TESTF TESTOSTERONE, TOTAL AND FREE, S Cancelled Normal [facility] VITAMIN B12on 05-16-2025 Cobalamin (Vitamin B12) [Mass/Vol] 1009 pg/mL High 180-914 [facility] Comment on above: Performed By: #### C MELANIA, CMP #### [facility] ([id number]) [address] [place] [address] 22920 VITAMIN D 25 HYDROXYon 05-16 VITAMIN D 25 HYD TOT 84.2 ng/mL Normal 30.0-100.0 [facility] Comment on above: Order Comment: Vitam in D status 25 [place] Vitamin D Deficiency <20 ng/mLInsufficiency 20-29 ng/mLSufficiency 30-100 ng/mLToxicity >100 ng/mLNOTE: A pediatric reference range has not been established by the buggy man of this kit. The [place] [employer] recommends a Vitamin D level of = or >20ng/mL in infants and children. Performed By: #### C MELANIA, CMP #### [facility] ([id number]) [address] [facility], [place] [address] XR SPINE LUMB COMP INCL BEND 6+ [...] Feliz MD on 05/04/2025 3:25 PM Normal [facility] CBC WITH AUTO DIFFERENTIALon 05-02-2025 BASOPHILS ABSOLUTE COUNT (10*3/UL) BY AUTOMATED COUNT 0.1 10*3/uL Normal 0.0-0.2 [facility] Comment on above: Performed By: #### C MELANIA #### [facility] ([facility]) [address] [place] [address] VIR BASOPHILS RELATIVE PERCENT BY AUTOMATED COUNT 1.3 % Normal [facility] Comment on above: Performed By: #### C MELANIA #### [facility] ([facility]) [address] [place] [address] VIR CELLAVISION DIFFERENTIAL TYPE AUTOMATED DIFFERENTIAL Normal [facility] Comment on above: Performed By: #### C BCA #### [facility] ([facility]) [address] [place] [address] VIR Eosinophils (Bld) [#/Vol] 0.2 10*3/uL Normal 0.0-0.4 [facility] Comment on above: Performed By: #### C BCA #### [facility] ([facility]) [address] [place] [address] VIR EOSINOPHILS RELATIVE PERCENT BY AUTOMATED COUNT 2.5 % Normal [facility] Comment on above: Performed By: #### C BCA #### [facility] ([facility]) [address] [place] [address] VIR Erythrocyte distribution width (RBC) [Ratio] 15.2 % High 11.5-15 [facility] Comment on above: Performed By: #### C BCA #### [facility] ([facility]) [address] [place] [address] VIR Hematocrit (Bld) [Volume fraction] 42.3 % Normal 39-50 [facility] Comment on above: Performed By: #### C BCA #### [facility] ([facility]) [address] [place] [address] VIR Hemoglobin (Bld) [Mass/Vol] 14.1 g/dL Normal 13-17 [facility] Comment on above: Performed By: #### C BCA #### [facility] ([facility]) [address] [place] [address] VIR LYMPHOCYTES ABSOLUTE COUNT (10*3/UL) BY AUTOMATED COUNT 1.9 10*3/uL Normal 1.0-3.5 [facility] Comment on above: Performed By: #### C BCA #### [facility] ([facility]) [address] [place] [address] VIR LYMPHOCYTES RELATIVE PERCENT BY AUTOMATED COUNT 22.1 % Normal [facility] Comment on above: Performed By: #### C BCA #### [facility] ([facility]) [address] [place] [address] VIR MCH (RBC) [Entitic mass] 27.5 pg Normal 27-34 [facility] Comment on above: Performed By: #### C BCA #### [facility] ([facility]) [address] [place] [address] VIR MCHC (RBC) [Mass/Vol] 33.4 g/dL Normal 32-36 [facility] Comment on above: Performed By: #### C BCA #### [facility] ([facility]) [address] [place] [address] VIR MCV (RBC) [Entitic vol] 82 fL Normal 80-100 [facility] Comment on above: Performed By: #### C BCA #### [facility] ([facility]) [address] [place] [address] VIR MONOCYTES ABSOLUTE COUNT (10*3/UL) BY AUTOMATED COUNT 0.9 10*3/uL Normal 0.0-0.9 [facility] Comment on above: Performed By: #### C BCA #### [facility] ([facility]) [address] [place] [address] VIR MONOCYTES RELATIVE PERCENT BY AUTOMATED COUNT 10.6 % Normal [facility] Comment on above: Performed By: #### C BCA #### [facility] ([facility]) [address] [place] [address] VIR NEUTROPHILS ABSOLUTE COUNT BY AUTOMATED COUNT 5.5 10*3/uL Normal 1.5-6.6 [facility] Comment on above: Performed By: #### C BCA #### [facility] ([facility]) [address] [place] [address] VIR NEUTROPHILS RELATIVE PERCENT BY AUTOMATED COUNT 63.5 % Normal [facility] Comment on above: Performed By: #### C BCA #### [facility] ([facility]) [address] [place] [address] VIR Platelet mean volume (Bld) [Entitic vol] 9.5 fL Normal 7-12 [facility] Comment on above: Performed By: #### C BCA #### [facility] ([facility]) [address] [place] [address] VIR Platelets (Bld) [#/Vol] 298 10*3/uL Normal 150-450 [facility] Comment on above: Performed By: #### C BCA #### [facility] ([facility]) [address] [place] [address] VIR RBC COUNT 5.14 X10E12/L Normal 4.1-5.7 [facility] Comment on above: Performed By: #### C BCA #### [facility] ([facility]) [address] [place] [address] VIR WBC (Bld) [#/Vol] 8.7 10*3/uL Normal 4-11 [facility] Comment on above: Performed By: #### C BCA #### [facility] ([facility]) [address] [place] [address] VIR COMPREHENSIVE METABOLIC PANE Anuel 05-02-2025 Albumin [Mass/Vol] 3.7 g/dL Normal 3.2-5.3 [facility] Comment on above: Performed By: #### C MP #### [facility] ([facility]) [address] [place] [address] VIR ALP [Catalytic activity/Vol] 102 U/L Normal 39-130 [facility] Comment on above: Performed By: #### C MP #### [facility] ([facility]) [address] [place] [address] VIR ALT [Catalytic activity/Vol] 14 U/L Normal <=40 [facility] Comment on above: Performed By: #### C MP #### [facility] ([facility]) [address] [place] [address] VIR Anion gap [Moles/Vol] 10 mmol/L Normal 5-15 [facility] Comment on above: Performed By: #### C MP #### [facility] ([facility]) [address] [place] [address] VIR AST [Catalytic activity/Vol] 18 U/L Normal <=41 [facility] Comment on above: Performed By: #### C MP #### [facility] ([facility]) [address] [place] [address] VIR Bilirubin [Mass/Vol] 0.9 mg/dL Normal 0.3-1.2 [facility] Comment on above: Performed By: #### C MP #### [facility] ([facility]) [address] [place] [address] VIR Calcium [Mass/Vol] 9.6 mg/dL Normal 8.5-10.5 [facility] Comment on above: Performed By: #### C MP #### [facility] ([facility]) [address] [place] [address] VIR Chloride [Moles/Vol] 100 mmol/L Normal 98-109 [facility] Comment on above: Performed By: #### C MP #### [facility] ([facility]) [address] [place] [address] VIR CO2 [Moles/Vol] 22 mmol/L Normal 22-32 [facility] Comment on above: Performed By: #### C MP #### [facility] ([facility]) [address] [place] [address] VIR Creatinine [Mass/Vol] 1.61 mg/dL High 0.60-1.30 [facility] Comment on above: Result Comment: METH OD TRACEABLE TO IDMS STANDARD Performed By: #### C MP #### [facility] ([facility]) [address] [place] [address] VIR GFR/1.73 sq M.predicted among non-blacks MDRD (S/P/Bld) [Vol rate/Area] 49 mL/min/{1.73_m2} Low >=60 [facility] Comment on above: Result Comment: Repo rted eGFR is based on the CKD-EPI 2020 equation that does not use a race coefficient. Performed By: #### C MP #### [facility] ([facility]) [address] [place] [address] VIR Glucose [Mass/Vol] 323 mg/dL High 65-99 [facility] Comment on above: Performed By: #### C MP #### [facility] ([facility]) [address] [place] [address] VIR Potassium [Moles/Vol] 4.1 mmol/L Normal 3.5-5.0 [facility] Comment on above: Performed By: #### C MP #### [facility] ([facility]) [address] [place] [address] VIR Protein [Mass/Vol] 8.9 g/dL High 6.0-8.0 [facility] Comment on above: Performed By: #### C MP #### [facility] ([facility]) [address] [place] [address] VIR Sodium [Moles/Vol] 132 mmol/L Low 134-146 [facility] Comment on above: Performed By: #### C MP #### [facility] ([facility]) [address] [place] [address] VIR Urea nitrogen [Mass/Vol] 28 mg/dL High 5-23 [facility] Comment on above: Performed By: #### C MP #### [facility] ([facility]) [address] [place] [address] VIR HEMOGLOBIN A1Con 05-02-2025 Glucose [Mass/Vol] 283 mg/dL Normal [facility] Comment on above: Performed By: #### H A1C #### [facility] ([facility]) [address] [place] [address] VIR HbA1c (Bld) [Mass fraction] 11.5 % High 4.4-5.6 [facility] Comment on above: Result Comment: ADA Guidelines Result HgbA1c Normal : less than 5.7 % Prediabetes : 5.7 % to 6.4 % Diabetes : > 6.4 % Use with caution in patients with abnormal hemoglobin variants as the half-life of red blood cells and in vivo glycation rates are affected. Performed By: #### H A1C #### [facility] ([facility]) [address] [place] [address] VIR Debridementon 04-24-2025 SCOTT Vaughn 04/24/2025 12:02 PM Debridement Performed by: SCOTT Vaughn Authorized by: SCOTT Vaughn Associated wounds: Wound 03/28/25 1 Diabetic Ulcer Foot Right;Plantar Consent: Consent obtained: Verbal and written Consent given by: Patient Risks discussed: Yes Debridement Details: Performed by: [employer] Type: Sharp Level: Subcutaneous Tissue, Devitalized tissue and other material debrided: Subcutaneous tissue, fibrin, biofilm and callus Anesthesia administration: topical Anesthesia: EMLA Total Surface Area Debrided cm^2: 7.26 Specimen Taken: None Instrument: Curette Amount of bleeding: Small Bleeding Control: Pressure Response to treatment: Procedure was tolerated well Tissue Applied?: No MANUALLY TRANSCRIBED RESULTS [facility] No Panel Informationon 04-24 APPLIED IN CLINIC TODAY. MANUALLY TRANSCRIBED RESULTS No Panel InformationOrdered By: Sulma Humphreys on 04-24-2025 [facility] NURSING PROGon 04-20-2025 NURSING PROG HNO ID: [id number] Author: ROBBIN CONTI RN Service: ? Author [...] thing I was told. No instructions given. [facility] CNPLidia 04-18-2025 CNPN Telephone (GENSSP) MORE KINGSLEY JR. ([id number]) 1965 M Date Time Provider Department 04/18/25 JEROME DEL TORO [facility] During your visit today, we recorded the following information about you: Tamara Goncalves RN 04/19/2025 8:06 AM Addendum G-JONY for date of service 04/25/2025. Appeal with all information including letter, study, JAMIN notes, GES result, EGG result, EGD result, CT result, faxed to [employer]/Appeals Dept at fax [phone] with confirmation. Appeal also mailed out to [employer]/Appeals Dept to the address provided. Copy placed in shared clinical office filing cabinet. Tamara Goncalves RN 05/03/2025 10:35 AM Addendum Email received from [place]/Pre-Access Denials Team: We are glad to inform you that your appeal was successfully overturned and CPT 38152 is now authorized and test needs to [...] Fully Assessed Reason for Visit: Care Coordination [5240] Cmt: Appeal for GPOEM denial Prescriptions as [...] Encounter Status:Closed by TAMARA GONCALVES on 04/18/25 [facility] 04-11-2025 [facility] Telephone (GENSSP) MORE KINGSLEY JR. ([id number]) 1965 M Date Time Provider Department 04/11/25 JEROME DEL TORO [facility] During your visit today, we recorded the following information about you: Jeremiah Stiles RN 04/11/2025 12:55 PM Signed PA for Gimoti initiated electronically through [employer] site with Anderson Code 2S6S26 [facility] at [phone] with fax# [phone]. Awaiting response [facility] ID# [id number] Rx Grp RXAETD Tiff Mejias LPN 04/11/2025 3:19 PM Signed Gimoti Medication [...] PM PA for Gimoti initiated electronically through [employer] site with Anderson Code 2S6S26 started by [facility] at [phone] with fax# [phone]. Awaiting response [facility] ID# [id number] Rx Grp RXAETD >> Tiff Mejias LPN 04/11/2025 3:19 PM >> TIFF MEJIAS WedApril 11, 2025 3:19 PM Med approved thru 11/21/25 Problem List As Of Date: 04/11/2025 (None) Encounter Status:Closed by JEREMIAH STILES on 04/11/25 [facility] 04-11-2025 SCOTT Vaughn 04/11/2025 12:18 PM Debridement Performed by: SCOTT Vaughn Authorized by: SCOTT Vaughn Associated wounds: Wound 03/28/25 1 Diabetic Ulcer Foot Right;Plantar Consent: Consent obtained: Verbal and written Consent given by: Patient Risks discussed: Yes Debridement Details: Performed by: [employer] Type: Sharp Level: Subcutaneous Tissue, Devitalized tissue and other material debrided: Subcutaneous tissue, callus and fibrin Anesthesia administration: topical Anesthesia: EMLA Total Surface Area Debrided cm^2: 7.78 Specimen Taken: None Instrument: Curette Amount of bleeding: Medium Bleeding Control: Pressure Response to treatment: Procedure was tolerated well Tissue Applied?: No MANUALLY TRANSCRIBED RESULTS Include Fitness Xeroform 4x4on 04-11-2025 Applied in clinic today MANUALLY TRANSCRIBED RESULTS Include Fitness ACETYLCHOLINE REC BINDING AB on 04-10-2025 ACETYLCHOLINE BINDING, QUAL Negative Normal Negative [facility] Comment on above: Order Comment: Speci men Type: BLOOD SPECIMEN Ordering Facility: [facility] Address: [address] [place] [address] Result Comment: Anti -acetylcholine receptor binding antibody test is used as an aid in diagnosis of myasthenia gravis. A negative result cannot exclude myasthenia gravis. Clinical correlation is required. Performed By: #### A CHRAB #### [facility] CLIA [id number] [address] [place] [address] [place] Acetylcholine receptor binding Ab (S) [Moles/Vol] <0.02 Normal <0.21 [facility] Comment on above: Order Comment: Gloriai men Type: BLOOD SPECIMEN Ordering Facility: [facility] Address: [address] [place] [address] Performed By: #### A CHRAB #### [facility] CLIA [id number] [address] [place] [address] [place] AMINO ACIDS, PLASMA W/ CONSU LTATIONon 04-10-2025 Alanine [Moles/Vol] 412 umol/L Normal 177-583 [facility] Comment on above: Order Comment: Speci men Type: BLOOD SPECIMEN Ordering Facility: [facility] Address: [address] [place] [address] Performed By: #### P AABI #### [facility] CLIA [id number] [address] [place] [address] [place] Alloisoleucine [Moles/Vol] <2 Normal 0-2 [facility] Comment on above: Order Comment: Speci men Type: BLOOD SPECIMEN Ordering Facility: [facility] Address: [address] [place] [address] Performed By: #### P AABI #### [facility] CLIA [id number] [address] [place] [address] [place] Alpha aminoadipate [Moles/Vol] <2 Normal 0-6 [facility] Comment on above: Order Comment: Speci men Type: BLOOD SPECIMEN Ordering Facility: [facility] Address: [address] [place] [address] Performed By: #### P AABI #### [facility] CLIA [id number] [address] [place] [address] [place] AMINO ACID CONSULTATION, PLASMA Normal [facility] Comment on above: Order Comment: Speci men Type: BLOOD SPECIMEN Ordering Facility: [facility] Address: [address] [place] [address] Result Comment: This plasma amino acid analysis is mainly notable for low levels of serine and glycine. Low levels of plasma serine and glycine is potentially related to the patient's clinical history of diabetes. Reference intervals from Jovani Scott, Pat MG, Ocasio MANDEEP, and Anderson DK: Biochemical Genetics: A Laboratory Manual, Copyright 1989 by [employer] Reference intervals not established for some amino acids. This test was developed and its performance characteristics determined by the [facility] Department of Pathology and Laboratory Medicine. It has not been cleared or approved by the FDA. The [facility] Department of Pathology and Laboratory Medicine is regulated under CLIA as qualified to perform high-complexity testing. This test is used for clinical purposes. It should not be regarded as investigational or for research. Performed By: #### P AABI #### [facility] CLIA [id number] [address] [place] [address] [place] AMINO ACIDS REVIEW, PLASMA Reviewed by Forrest Gomez MD, Ph.D ([id number]) [facility] Comment on above: Order Comment: Speci men Type: BLOOD SPECIMEN Ordering Facility: [facility] Address: [address] [place] [address] Performed By: #### P AABI #### [facility] CLIA [id number] [address] [place] [address] [place] Arginine [Moles/Vol] 73 umol/L Normal 15-128 [facility] Comment on above: Order Comment: Speci men Type: BLOOD SPECIMEN Ordering Facility: [facility] Address: [address] [place] [address] Performed By: #### P AABI #### [facility] CLIA [id number] [address] [place] [address] [place] Asparagine [Moles/Vol] 31 umol/L Low 35-74 [facility] Comment on above: Order Comment: Speci men Type: BLOOD SPECIMEN Ordering Facility: [facility] Address: [address] [place] [address] Performed By: #### P AABI #### [facility] CLIA [id number] [address] [place] [address] [place] Aspartate [Moles/Vol] 3 umol/L Normal 1-25 [facility] Comment on above: Order Comment: Speci men Type: BLOOD SPECIMEN Ordering Facility: [facility] Address: [address] [place] [address] Performed By: #### P AABI #### [facility] CLIA [id number] [address] [place] [address] [place] Citrulline [Moles/Vol] 38 umol/L Normal 12-55 [facility] Comment on above: Order Comment: Speci men Type: BLOOD SPECIMEN Ordering Facility: [facility] Address: [address] [place] [address] Performed By: #### P AABI #### [facility] CLIA [id number] [address] [place] [address] [place] Cystine [Moles/Vol] 50 umol/L Normal 5-82 [facility] Comment on above: Order Comment: Speci men Type: BLOOD SPECIMEN Ordering Facility: [facility] Address: [address] [place] [address] Performed By: #### P AABI #### [facility] CLIA [id number] [address] [place] [address] [place] Glutamate [Moles/Vol] 82 umol/L Normal 10-131 [facility] Comment on above: Order Comment: Speci men Type: BLOOD SPECIMEN Ordering Facility: [facility] Address: [address] [place] [address] Performed By: #### P AABI #### [facility] CLIA [id number] [address] [place] [address] [place] Glutamine [Moles/Vol] 478 umol/L Normal 205-756 [facility] Comment on above: Order Comment: Speci men Type: BLOOD SPECIMEN Ordering Facility: [facility] Address: [address] [place] [address] Performed By: #### P AABI #### [facility] CLIA [id number] [address] [place], [place] [address] [place] Glycine [Moles/Vol] 125 umol/L Low 151-490 [facility] Comment on above: Order Comment: Speci men Type: BLOOD SPECIMEN Ordering Facility: [facility] Address: [address] [place] [address] Performed By: #### P AABI #### [facility] CLIA [id number] [address] [place] [address] [place] Histidine [Moles/Vol] 53 umol/L Low 72-124 [facility] Comment on above: Order Comment: Speci men Type: BLOOD SPECIMEN Ordering Facility: [facility] Address: [address] [place] [address] Performed By: #### P AABI #### [facility] CLIA [id number] [address] [place] [address] [place] Hydroxylysine [Moles/Vol] <2 High <=0 [facility] Comment on above: Order Comment: Speci men Type: BLOOD SPECIMEN Ordering Facility: [facility] Address: [address] [place] [address] Performed By: #### P AABI #### [facility] CLIA [id number] [address] [place] [address] [place] Hydroxyproline [Moles/Vol] Normal [facility] Comment on above: Order Comment: Speci men Type: BLOOD SPECIMEN Ordering Facility: [facility] Address: [address] [place] [address] Result Comment: Unab le to assay. Analytical difficulty Performed By: #### P AABI #### [facility] CLIA [id number] [address] [place] [address] [place] Isoleucine [Moles/Vol] 62 umol/L Normal 30-108 [facility] Comment on above: Order Comment: Speci men Type: BLOOD SPECIMEN Ordering Facility: [facility] Address: [address] [place] [address] Performed By: #### P AABI #### [facility] CLIA [id number] [address] [place] [address] [place] Leucine [Moles/Vol] 109 umol/L Normal 72-201 [facility] Comment on above: Order Comment: Speci men Type: BLOOD SPECIMEN Ordering Facility: [facility] Address: [address] [place] [address] Performed By: #### P AABI #### [facility] CLIA [id number] [address] [place] [address] [place] Lysine [Moles/Vol] 143 umol/L Normal 116-296 [facility] Comment on above: Order Comment: Speci men Type: BLOOD SPECIMEN Ordering Facility: [facility] Address: [address] [place] [address] Performed By: #### P AABI #### [facility] CLIA [id number] [address] [place] [address] [place] Methionine [Moles/Vol] 19 umol/L Normal 10-42 [facility] Comment on above: Order Comment: Speci men Type: BLOOD SPECIMEN Ordering Facility: [facility] Address: [address] [place] [address] Performed By: #### P AABI #### [facility] CLIA [id number] [address] [place] [address] [place] Ornithine [Moles/Vol] 43 umol/L Low 48-195 [facility] Comment on above: Order Comment: Speci men Type: BLOOD SPECIMEN Ordering Facility: [facility] Address: [address] [place] [address] Performed By: #### P AABI #### [facility] CLIA [id number] [address] [place] [address] [place] Phenylalanine [Moles/Vol] 63 umol/L Normal 35-85 [facility] Comment on above: Order Comment: Speci men Type: BLOOD SPECIMEN Ordering Facility: [facility] Address: [address] [place] [address] Performed By: #### P AABI #### [facility] CLIA [id number] [address] [place] [address] [place] Proline [Moles/Vol] 237 umol/L Normal 97-329 [facility] Comment on above: Order Comment: Speci men Type: BLOOD SPECIMEN Ordering Facility: [facility] Address: [address] [place] [address] Performed By: #### P AABI #### [facility] CLIA [id number] [address] [place] [address] [place] Sarcosine [Moles/Vol] <2 High <=0 [facility] Comment on above: Order Comment: Speci men Type: BLOOD SPECIMEN Ordering Facility: [facility] Address: [address] [place] [address] Performed By: #### P AABI #### [facility] CLIA [id number] [address] [place] [address] [place] Serine [Moles/Vol] 41 umol/L Low 58-181 [facility] Comment on above: Order Comment: Speci men Type: BLOOD SPECIMEN Ordering Facility: [facility] Address: [address] [place] [address] Performed By: #### P AABI #### [facility] CLIA [id number] [address] [place] [address] [place] Taurine [Moles/Vol] 58 umol/L Normal 54-210 [facility] Comment on above: Order Comment: Speci men Type: BLOOD SPECIMEN Ordering Facility: [facility] Address: [address] [place] [address] Performed By: #### P AABI #### [facility] CLIA [id number] [address] [place] [address] [place] Threonine [Moles/Vol] 109 umol/L Normal 60-225 [facility] Comment on above: Order Comment: Speci men Type: BLOOD SPECIMEN Ordering Facility: [facility] Address: [address] [place] [address] Performed By: #### P AABI #### [facility] CLIA [id number] [address] [place], [place] [address] [place] Tyrosine [Moles/Vol] 68 umol/L Normal 34-112 [facility] Comment on above: Order Comment: Speci men Type: BLOOD SPECIMEN Ordering Facility: [facility] Address: [address] [place] [address] Performed By: #### P AABI #### [facility] CLIA [id number] [address] [place] [address] [place] Valine [Moles/Vol] 227 umol/L Normal 119-336 [facility] Comment on above: Order Comment: Speci men Type: BLOOD SPECIMEN Ordering Facility: [facility] Address: [address] [place] [address] Performed By: #### P AABI #### [facility] CLIA [id number] [address] [place] [address] [place] CARNITINE FREE AND TOTAL, PL ASMAon 04-10-2025 C0 [Moles/Vol] 39.0 umol/L Normal 20.0-53.0 [facility] Comment on above: Order Comment: Speci men Type: BLOOD SPECIMEN Ordering Facility: [facility] Address: [address] [place] [address] Performed By: #### C ARNPL #### [facility] CLIA [id number] [address] [place] [address] [place] Carnitine [Moles/Vol] 49.3 umol/L Normal 26.4-66.0 [facility] Comment on above: Order Comment: Speci men Type: BLOOD SPECIMEN Ordering Facility: [facility] Address: [address] [place] [address] Performed By: #### C ARNPL #### [facility] CLIA [id number] [address] [place] [address] [place] Carnitine esters [Moles/Vol] 10.3 umol/L Normal 3.0-15.6 [facility] Comment on above: Order Comment: Speci men Type: BLOOD SPECIMEN Ordering Facility: [facility] Address: [address] [place] [address] Performed By: #### C ARNPL #### [facility] CLIA [id number] [address] [place] [address] [place] Carnitine esters/Carnitine.free (C0) [Molar ratio] 0.3 Normal 0.1-0.7 [facility] Comment on above: Order Comment: Irving carver Type: BLOOD SPECIMEN Ordering Facility: [facility] Address: [address] [place] [address] Result Comment: NOTE : The determination of [...] determined by the Pathology and Laboratory Medicine [place] at the [facility]. The U.S. Food and Drug Administration has not approved or cleared this test, however, FDA clearance or approval is not currently required for clinical use. Performed By: #### C ARNPL #### [facility] CLIA [id number] [address] [place] [address] [place] CK SerPl-cCncon 04-10-2025 CK [Catalytic activity/Vol] 41 U/L Low 51-298 [facility] Comment on above: Order Comment: Irving wen Type: BLOOD SPECIMEN Ordering Facility: [facility] Address: [address] [place], [place] [address] [address] Performed By: #### 1 988-5, 2157-6 #### [facility] CLIA [id number] [address] [place] [address] [place] CNOVon 04-10-2025 CNOV Office Visit (GENSSP ) MORE KINGSLEY JR. ([id number]) 1965 M Date Time Provider Department 04/10/25 10:00 AM JEROME DEL TORO During your visit today, we recorded the following information about you: Pulse Blood pressure Weight Height 101/minute 149/84 115 kg 1.778 m Andrey Estrella MA 04/10/2025 10:33 AM Signed What is the [...] 10:33 AM Signed [facility] [place] Gastroparesis/Dysmotil ity Consultation SERVICE DATE: 04/10/2025 SERVICE TIME: 10:04 AM PRIMARY CARE PHYSICIAN: No primary care provider on file. Tracy Yoon [address] [address] My final recommendations will be communicated back [...] ____ NAME: More Kingsley Jr. CLINIC NO: [id number] DATE OF SERVICE: April 10, 2025 This [...] for surgical (more content not included)... Normal [facility] MORE KINGSLEY JR. 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 He denies any significant psychiatric history and [...] team for further recommendations Chief Complaint: More Duran Michael Monroy. is a 59 year old male with [...] mattress qual (more content not included)... Normal [facility] Office Visit (GASTSP ) MORE KINGSLEY JR. ([id number]) 1965 M Date Time Provider Department 04/10/25 [...] Medications - Does the patient see a industrial spraypainter for chronic pain?No - Is the patient [...] - Has the patient met with a nurses' aide for diet recommendations with Gastroparesis? No - [...] Botox Injections: No Patient Name More Kingsley . Age [age] year old Gastroparesis Consult Test [...] = 0-60%). (more content not included)... Normal [facility] CNPNon 04-10-2025 CNPN Telephone (GENSSP) MORE KINGSLEY JR. ([id number]) 1965 M Date Time Provider Department 04/10/25 JEROME DEL TORO GENGurvinder During your visit today, we recorded the [...] Fully Assessed Reason for Visit: Care Coordination [3041] Cmt: Schedule procedure and follow up appt Primary Visit Diagnosis:Diabetic gastroparesis (HCC) [E11.43, K31.84] Order(s):EGD - THERAPEUTIC, EUS, OR TUBE INTERVENTIONS [GI2] Order #: [id number] FUTURE sucralfate (CARAFATE) 1 gram tabletTake 1 [...] by JEROME DEL TORO on 04/10/25 Normal [facility] CRP SerPl-mCncon 04-10-2025 CRP [Mass/Vol] 2.7 mg/dL High <0.9 [facility] Comment on above: Order Comment: Speci men Type: BLOOD SPECIMEN Ordering Facility: [facility] Address: [address] [place] [address] Performed By: #### 1 988-5, 2157-6 #### [facility] CLIA [id number] [address] [place] [address] [place] ESR Westergren method (Bld) [Velocity]on 04-10-2025 ESR (Bld) [Velocity] 66 mm/h High 0-15 [facility] Comment on above: Order Comment: Speci men Type: BLOOD SPECIMEN Ordering Facility: [facility] Address: [address] [place] [address] Performed By: #### L ACPYR #### [facility] CLIA [id number] [address] [place] [address] [place] [address] [place] GAD65 Ab Ser-aCncon 04-10-20 25 Glutamate decarboxylase 65 Ab Qn (S) <5.0 Normal <=5.0 [facility] Comment on above: Order Comment: Speci men Type: BLOOD SPECIMEN Ordering Facility: [facility] Address: [address] [place] [address] Result Comment: Anti -glutamic acid decarboxylase antibody [...] required. Performed By: #### L ACPYR #### [facility] CLIA [id number] [address] [place] [address] [place] Glutamate decarboxylase 65 A b Qn (S)on 04-10-2025 GLUTAMIC ACID DECARBOXYLAS AB QUALITATIVE Negative Normal Negative [facility] Comment on above: Order Comment: Irving carver Type: BLOOD SPECIMEN Ordering Facility: [facility] Address: [address] [place] [address] Performed By: #### L ACPYR #### [facility] CLIA [id number] [address] [place] [address] [place] HbA1c (Bld)on 04-10-2025 Average glucose Estimated from glycated hemoglobin (Bld) [Mass/Vol] 269 mg/dL Normal [facility] Comment on above: Order Comment: Irving [facility] Type: BLOOD SPECIMEN Ordering Facility: [facility] Address: [address] [place] [address] Result Comment: eAG: (Estimated average glucose) is a calculated value from HgbA1c and is regional sales representative of the average blood glucose level in the last 2-3 month period. Performed By: #### 5 5454-3 #### [facility] CLIA [id number] [address] [place] [address] [place] HbA1c (Bld) [Mass fraction] 11.0 % High 4.3-5.6 [facility] Comment on above: Order Comment: [facility] Type: BLOOD SPECIMEN Ordering Facility: [facility] Address: [address] [place] [address] Result Comment: [place] [employer] guidelines indicate that patients with HgbA1c in the range 5.7-6.4% are at increased risk for development of diabetes, and intervention by lifestyle modification may be beneficial. HgbA1c greater or equal to 6.5% is considered diagnostic of diabetes. Performed By: #### 5 5454-3 #### [facility] CLIA [id number] [address] [place] [address] [place] IgA SerPl-mCncon 04-10-2025 IgA [Mass/Vol] 608 mg/dL High 70-400 [facility] Comment on above: Order Comment: Specedith carver Type: BLOOD SPECIMEN Ordering Facility: [facility] Address: [address] [place] [address] Performed By: #### 2 465-3, 2458-8, 2472-9 #### [facility] CLIA [id number] [address] [place] [address] [place] IgG SerPl-mCncon 04-10-2025 IgG [Mass/Vol] 3158 mg/dL High 700-1600 [facility] Comment on above: Order Comment: Irving carver Type: BLOOD SPECIMEN Ordering Facility: [facility] Address: [address] [place] [address] Performed By: #### L ACPYR #### [facility] CLIA [id number] [address] [place] [address] [place] IgM SerPl-mCncon 04-10-2025 IgM [Mass/Vol] 110 mg/dL Normal 40-230 [facility] Comment on above: Order Comment: Speci men Type: BLOOD SPECIMEN Ordering Facility: [facility] Address: [address] [place] [address] Performed By: #### L ACPYR #### [facility] CLIA [id number] [address] [place] [address] [place] LDH SerPl-cCncon 04-10-2025 LDH [Catalytic activity/Vol] 159 U/L Normal 135-225 [facility] Comment on above: Order Comment: Speci men Type: BLOOD SPECIMEN Ordering Facility: [facility] Address: [address] [place] [address] Performed By: #### L ACPYR #### [facility] CLIA [id number] [address] [place] [address] [place] ORGANIC ACIDS UR, QUANT W/CO NSULTon 04-10-2025 2-Hydroxyglutarate/Cr eatinine (U) [Molar ratio] <0.4 Low 0.6-17.7 [facility] Comment on above: Order Comment: Speci men Type: URINE SPECIMEN Ordering Facility: [facility] Address: [address] [place] [address] Performed By: #### L [id number] #### [facility] CLIA [id number] [address] [place] [address] [place] 2-Hydroxyisovalerate/ Creatinine (U) [Molar ratio] 0.1 umol/mmolCr Normal 0.0-0.1 [facility] Comment on above: Order Comment: Speci men Type: URINE SPECIMEN Ordering Facility: [facility] Address: [address] [place] [address] Performed By: #### L [id number] #### [facility] CLIA [id number] [address] [place] [address] [place] 5-Eayzna-1-hydroxybut yrate (C5-OH)/Creatinine (U) [Molar ratio] <0.6 Normal 0.0-1.3 [facility] Comment on above: Order Comment: Speci men Type: URINE SPECIMEN Ordering Facility: [facility] Address: [address] [place] [address] Performed By: #### L [id number] #### [facility] CLIA [id number] [address] [place] [address] [place] 2-Methylbutyrylglycin e/Creatinine (U) [Molar ratio] <0.1 Normal 0.0-0.4 [facility] Comment on above: Order Comment: Speci men Type: URINE SPECIMEN Ordering Facility: [facility] Address: [address] [place] [address] Performed By: #### L [id number] #### [facility] CLIA [id number] [address] [place] [address] [place] 2-Methylcitrate/Creat inine (U) [Molar ratio] <1.1 Normal 1.0-13.9 [facility] Comment on above: Order Comment: Speci men Type: URINE SPECIMEN Ordering Facility: [facility] Address: [address] [place] [address] Performed By: #### L [id number] #### [facility] CLIA [id number] [address] [place] [address] [place] 2-Oxoadipate/Creatini ne (U) [Molar ratio] <1.6 Normal 0.0-3.3 [facility] Comment on above: Order Comment: Speci men Type: URINE SPECIMEN Ordering Facility: [facility] Address: [address] [place] [address] Performed By: #### L [id number] #### [facility] CLIA [id number] [address] [place] [address] [place] 3-Hydroxyglutarate/Cr eatinine (U) [Molar ratio] 0.0 umol/mmolCr Normal 0.0-0.7 [facility] Comment on above: Order Comment: Speci men Type: URINE SPECIMEN Ordering Facility: [facility] Address: [address] [place] [address] Performed By: #### L [id number] #### [facility] CLIA [id number] [address] [place] [address] [place] 3-Hydroxyisovalerate/ Creatinine (U) [Molar ratio] 2.9 umol/mmolCr Normal 2.1-27.3 [facility] Comment on above: Order Comment: Speci men Type: URINE SPECIMEN Ordering Facility: [facility] Address: [address] [place] [address] Performed By: #### L [id number] #### [facility] CLIA [id number] [address] [place] [address] [place] 3-Methylcrotonylglyci ne/Creatinine (U) [Molar ratio] <0.3 Normal <0.3 [facility] Comment on above: Order Comment: Speci men Type: URINE SPECIMEN Ordering Facility: [facility] Address: [address] [place] [address] Performed By: #### L [id number] #### [facility] CLIA [id number] [address] [place] [address] [place] 3-Methylglutaconate/C reatinine (U) [Molar ratio] 0.3 umol/mmolCr Normal 0.0-2.0 [facility] Comment on above: Order Comment: Speci men Type: URINE SPECIMEN Ordering Facility: [facility] Address: [address] [place] [address] Performed By: #### L [id number] #### [facility] CLIA [id number] [address] [place] [address] [place] 3-Methylglutarate/Cre atinine (U) [Molar ratio] 0.2 umol/mmolCr Normal 0.0-0.6 [facility] Comment on above: Order Comment: Speci men Type: URINE SPECIMEN Ordering Facility: [facility] Address: [address] [place] [address] Performed By: #### L [id number] #### [facility] CLIA [id number] [address] [place] [address] [place] 4-Hydroxyphenylacetat e/Creatinine (U) [Molar ratio] 10.8 umol/mmolCr Normal 5.7-147.5 [facility] Comment on above: Order Comment: Speci men Type: URINE SPECIMEN Ordering Facility: [facility] Address: [address] [place] [address] Performed By: #### L [id number] #### [facility] CLIA [id number] [address] [place] [address] [place] 4-Hydroxyphenyllactat e/Creatinine (U) [Molar ratio] 20.8 umol/mmolCr Normal 1.3-23.0 [facility] Comment on above: Order Comment: Speci men Type: URINE SPECIMEN Ordering Facility: [facility] Address: [address] [place] [address] Performed By: #### L [id number] #### [facility] CLIA [id number] [address] [place] [address] [place] 4-Hydroxyphenylpyruva te/Creatinine (U) [Molar ratio] 0.0 umol/mmolCr Normal <=0.0 [facility] Comment on above: Order Comment: Speci men Type: URINE SPECIMEN Ordering Facility: [facility] Address: [address] [place] [address] Performed By: #### L [id number] #### [facility] CLIA [id number] [address] [place] [address] [place] 5-Oxoproline/Creatini ne (U) [Molar ratio] 1.5 umol/mmolCr Normal 0.4-3.1 [facility] Comment on above: Order Comment: Speci men Type: URINE SPECIMEN Ordering Facility: [facility] Address: [address] [place] [address] Performed By: #### L [id number] #### [facility] CLIA [id number] [address] [place] [address] [place] Acetoacetate/Creatini ne (U) [Molar ratio] <0.9 High 0.0-0.5 [facility] Comment on above: Order Comment: Speci men Type: URINE SPECIMEN Ordering Facility: [facility] Address: [address] [place] [address] Performed By: #### L [id number] #### [facility] CLIA [id number] [address] [place] [address] [place] Aconitate/Creatinine (U) [Molar ratio] 19.3 umol/mmolCr Normal 8.5-109.6 [facility] Comment on above: Order Comment: Speci men Type: URINE SPECIMEN Ordering Facility: [facility] Address: [address] [place] [address] Performed By: #### L [id number] #### [facility] CLIA [id number] [address] [place] [address] [place] Adipate/Creatinine (U) [Molar ratio] 1.3 umol/mmolCr Normal 0.3-9.2 [facility] Comment on above: Order Comment: Speci men Type: URINE SPECIMEN Ordering Facility: [facility] Address: [address] [place] [address] Performed By: #### L [id number] #### [facility] CLIA [id number] [address] [place] [address] [place] Alpha hydroxybutyrate/Creat inine (U) [Molar ratio] 1.0 umol/mmolCr Normal 0.0-2.7 [facility] Comment on above: Order Comment: Speci men Type: URINE SPECIMEN Ordering Facility: [facility] Address: [address] [place] [address] Performed By: #### L [id number] #### [facility] CLIA [id number] [address] [place] [address] [place] Alpha ketoglutarate/Creatin ine (U) [Molar ratio] 6.2 umol/mmolCr Normal 0.2-42.7 [facility] Comment on above: Order Comment: Speci men Type: URINE SPECIMEN Ordering Facility: [facility] Address: [address] [place] [address] Performed By: #### L [id number] #### [facility] CLIA [id number] [address] [place] [address] [place] Benzoate/Creatinine (U) [Molar ratio] <12.2 Normal 0.0-14.6 [facility] Comment on above: Order Comment: Speci men Type: URINE SPECIMEN Ordering Facility: [facility] Address: [address] [place] [address] Performed By: #### L [id number] #### [facility] CLIA [id number] [address] [place] [address] [place] Beta hydroxybutyrate/Creat inine (U) [Molar ratio] <1.6 Normal 0.1-2.6 [facility] Comment on above: Order Comment: Speci men Type: URINE SPECIMEN Ordering Facility: [facility] Address: [address] [place] [address] Performed By: #### L [id number] #### [facility] CLIA [id number] [address] [place] [address] [place] Butyrylglycine/Creati nine (U) [Molar ratio] 0.0 umol/mmolCr Normal 0.0-0.7 [facility] Comment on above: Order Comment: Speci men Type: URINE SPECIMEN Ordering Facility: [facility] Address: [address] [place] [address] Performed By: #### L [id number] #### [facility] CLIA [id number] [address] [place] [address] [place] Creatinine (U) [Mass/Vol] 275.7 mg/dL Normal 46.8-314.5 [facility] Comment on above: Order Comment: Speci men Type: URINE SPECIMEN Ordering Facility: [facility] Address: [address] [place] [address] Performed By: #### L [id number] #### [facility] CLIA [id number] [address] [place] [address] [place] Ethylmalonate/Creatin ine (U) [Molar ratio] 2.7 umol/mmolCr Normal 0.5-6.2 [facility] Comment on above: Order Comment: Speci men Type: URINE SPECIMEN Ordering Facility: [facility] Address: [address] [place] [address] Performed By: #### L [id number] #### [facility] CLIA [id number] [address] [place] [address] [place] Fumarate/Creatinine (U) [Molar ratio] 1.9 umol/mmolCr Normal 0.3-2.6 [facility] Comment on above: Order Comment: Speci men Type: URINE SPECIMEN Ordering Facility: [facility] Address: [address] [place] [address] Performed By: #### L [id number] #### [facility] CLIA [id number] [address] [place] [address] [place] Glutarate/Creatinine (U) [Molar ratio] 0.1 umol/mmolCr Normal 0.0-1.4 [facility] Comment on above: Order Comment: Speci men Type: URINE SPECIMEN Ordering Facility: [facility] Address: [address] [place] [address] Performed By: #### L [id number] #### [facility] CLIA [id number] [address] [place] [address] [place] Hexanoylglycine/Creat inine (U) [Molar ratio] <0.1 Normal 0.0-0.1 [facility] Comment on above: Order Comment: Speci men Type: URINE SPECIMEN Ordering Facility: [facility] Address: [address] [place] [address] Performed By: #### L [id number] #### [facility] CLIA [id number] [address] [place] [address] [place] Isobutyrylglycine/Cre atinine (U) [Molar ratio] <0.1 Normal 0.0-1.2 [facility] Comment on above: Order Comment: Speci men Type: URINE SPECIMEN Ordering Facility: [facility] Address: [address] [place] [address] Performed By: #### L [id number] #### [facility] CLIA [id number] [address] [place] [address] [place] Isocitrate/Creatinine (U) [Molar ratio] 62.1 umol/mmolCr Normal 9.1-271.9 [facility] Comment on above: Order Comment: Speci men Type: URINE SPECIMEN Ordering Facility: [facility] Address: [address] [place] [address] Performed By: #### L [id number] #### [facility] CLIA [id number] [address] [place] [address] [place] Lactate/Creatinine (U) [Molar ratio] 23.5 umol/mmolCr Normal 2.9-47.2 [facility] Comment on above: Order Comment: Speci men Type: URINE SPECIMEN Ordering Facility: [facility] Address: [address] [place] [address] Performed By: #### L [id number] #### [facility] CLIA [id number] [address] [place] [address] [place] Malate/Creatinine (U) [Molar ratio] 0.8 umol/mmolCr Normal 0.0-1.1 [facility] Comment on above: Order Comment: Speci men Type: URINE SPECIMEN Ordering Facility: [facility] Address: [address] [place] [address] Performed By: #### L [id number] #### [facility] CLIA [id number] [address] [place] [address] [place] Malonate/Creatinine (U) [Molar ratio] 0.0 umol/mmolCr Normal 0.0-0.1 [facility] Comment on above: Order Comment: Speci men Type: URINE SPECIMEN Ordering Facility: [facility] Address: [address] [place] [address] Performed By: #### L [id number] #### [facility] CLIA [id number] [address] [place] [address] [place] Methylmalonate/Creati nine (U) [Molar ratio] <0.4 Normal 0.0-0.6 [facility] Comment on above: Order Comment: Speci men Type: URINE SPECIMEN Ordering Facility: [facility] Address: [address] [place] [address] Performed By: #### L [id number] #### [facility] CLIA [id number] [address] [place] [address] [place] Methylsuccinate/Creat inine (U) [Molar ratio] 0.4 umol/mmolCr Normal 0.0-1.4 [facility] Comment on above: Order Comment: Speci men Type: URINE SPECIMEN Ordering Facility: [facility] Address: [address] [place] [address] Performed By: #### L [id number] #### [facility] CLIA [id number] [address] [place] [address] [place] N-acetylaspartate/Cre atinine (U) [Molar ratio] 0.8 umol/mmolCr Normal 0.1-8.9 [facility] Comment on above: Order Comment: Speci men Type: URINE SPECIMEN Ordering Facility: [facility] Address: [address] [place] [address] Performed By: #### L [id number] #### [facility] CLIA [id number] [address] [place] [address] [place] N-acetyltyrosine/Crea tinine (U) [Molar ratio] 0.3 umol/mmolCr Normal 0.0-1.2 [facility] Comment on above: Order Comment: Speci men Type: URINE SPECIMEN Ordering Facility: [facility] Address: [address] [place] [address] Performed By: #### L [id number] #### [facility] CLIA [id number] [address] [place] [address] [place] Oxalate/Creatinine (U) [Molar ratio] 1.7 umol/mmolCr Normal 0.7-12.4 [facility] Comment on above: Order Comment: Speci men Type: URINE SPECIMEN Ordering Facility: [facility] Address: [address] [place] [address] Performed By: #### L [id number] #### [facility] CLIA [id number] [address] [place] [address] [place] Pyruvate/Creatinine (U) [Molar ratio] 0.6 umol/mmolCr Normal 0.1-2.6 [facility] Comment on above: Order Comment: Speci men Type: URINE SPECIMEN Ordering Facility: [facility] Address: [address] [place] [address] Performed By: #### L [id number] #### [facility] CLIA [id number] [address] [place] [address] [place] Sebacate (C8)/Creatinine (U) [Molar ratio] <3.4 High 0.0-0.3 [facility] Comment on above: Order Comment: Speci men Type: URINE SPECIMEN Ordering Facility: [facility] Address: [address] [place] [address] Performed By: #### L [id number] #### [facility] CLIA [id number] [address] [place] [address] [place] Suberate/Creatinine (U) [Molar ratio] 0.9 umol/mmolCr Normal 0.0-7.4 [facility] Comment on above: Order Comment: Speci men Type: URINE SPECIMEN Ordering Facility: [facility] Address: [address] [place] [address] Performed By: #### L [id number] #### [facility] CLIA [id number] [address] [place] [address] [place] Suberylglycine/Creati nine (U) [Molar ratio] 0.0 umol/mmolCr Normal <=0.0 [facility] Comment on above: Order Comment: Speci men Type: URINE SPECIMEN Ordering Facility: [facility] Address: [address] [place] [address] Performed By: #### L [id number] #### [facility] CLIA [id number] [address] [place] [address] [place] Succinate/Creatinine (U) [Molar ratio] 0.7 umol/mmolCr Normal 0.3-27.4 [facility] Comment on above: Order Comment: Speci men Type: URINE SPECIMEN Ordering Facility: [facility] Address: [address] [place] [address] Performed By: #### L [id number] #### [facility] CLIA [id number] [address] [place] [address] [place] Succinylacetone/Creat inine (U) [Molar ratio] <0.4 Normal <0.4 [facility] Comment on above: Order Comment: Speci men Type: URINE SPECIMEN Ordering Facility: [facility] Address: [address] [place] [address] Performed By: #### L [id number] #### [facility] CLIA [id number] [address] [place] [address] [place] UOA CONSULTATION Normal [facility] Comment on above: Order Comment: Speci men Type: URINE SPECIMEN Ordering Facility: [facility] Address: [address] [place] [address] Result Comment: This urine organic acid analysis [...] and its performance characteristics determined by the [facility]. It has not been cleared or approved by the [place] Food and Drug Administration. The FDA had determined that such clearance or approval is not necessary. Performed By: #### L [id number] #### [facility] CLIA [id number] [address] [place] [address] [place] UOA REVIEW Reviewed by Forrest Gomez MD, Ph.D ([id number]) [facility] Comment on above: Order Comment: Speci men Type: URINE SPECIMEN Ordering Facility: [facility] Address: [address] [place] [address] Performed By: #### L [id number] #### [facility] CLIA [id number] [address] [place] [address] [place] Uracil/Creatinine (U) [Molar ratio] <0.4 Normal 0.0-5.1 [facility] Comment on above: Order Comment: Speci men Type: URINE SPECIMEN Ordering Facility: [facility] Address: [address] [place] [address] Performed By: #### L [id number] #### [facility] CLIA [id number] [address] [place] [address] [place] PYRUVATE+LACTATE BLon 2024 Lactate [Moles/Vol] 2.1 mmol/L Normal 0.5-2.2 [facility] Comment on above: Order Comment: Speci men Type: BLOOD SPECIMEN Ordering Facility: [facility] Address: [address] [place] [address] Result Comment: This test was developed, and its performance characteristics determined by the [facility] Department of Pathology and Laboratory Medicine. It has not been cleared or approved by the FDA. The [facility] Department of Pathology and Laboratory Medicine is regulated under CLIA as qualified to perform high-complexity testing. This test is used for clinical purposes. It should not be regarded as investigational or for research. Performed By: #### L ACPYR #### [facility] CLIA [id number] [address] [place] [address] [place] Pyruvate (Bld) [Moles/Vol] 0.05 mmol/L Normal 0.03-0.10 [facility] Comment on above: Order Comment: Irving carver Type: BLOOD SPECIMEN Ordering Facility: [facility] Address: [address] [place] [address] Result Comment: This test was developed, and its performance characteristics determined by the [facility] Department of Pathology and Laboratory Medicine. It has not been cleared or approved by the FDA. The [facility] Department of Pathology and Laboratory Medicine is regulated under CLIA as qualified to perform high-complexity testing. This test is used for clinical purposes. It should not be regarded as investigational or for research. Performed By: #### L ACPYR #### [facility] CLIA [id number] [address] [place] [address] [place] VOLTAGE GATED CA IGGon 04-10 P/Q-TYPE CALCIUM CHANNEL ANTIBODY 0.0 pmol/L Normal 0.0-24.5 [facility] Comment on above: Order Comment: Irving carver Type: BLOOD SPECIMEN Ordering Facility: [facility] Address: [address] [place] [address] Result Comment: INTE RPRETIVE INFORMATION: P/Q-Type Calcium Channel Antibody 0.0 to 24.5 pmol/L ............. Negative 24.6 to 45.6 pmol/L ............ Indeterminate 45.7 pmol/L or greater.......... Positive This test was developed and its performance characteristics determined by [facility]. It has not been cleared or approved by the [place] Food and Drug Administration. This test was performed in a CLIA certified laboratory and is intended for clinical purposes. Performed By: [facility] [address] [place] [id number] Development Lead: Warren Simmons MD, PhD CLIA Number: [id number] Performed By: #### L ACPYR #### [facility] CLIA [id number] [address] [facility] [place] [address] [place] VOLTAGE-GATED POTASSIUM SZYMANSKI ABon 04-10-2025 VOLTAGE-GATED POTASSIUM CHANNEL AB, SER 0 pmol/L Normal 0-31 [facility] Comment on above: Order Comment: Speci men Type: BLOOD SPECIMEN [facility] [facility] Address: [address] [place] [address] Result Comment: INTE RPRETIVE INFORMATION: Voltage-Gated Potassium [...] developed and its performance characteristics determined by [facility]. It has not been cleared or approved by the [place] Food and Drug Administration. This test was performed in a CLIA certified laboratory and is intended for clinical purposes. Performed By: [facility] [address] [id number] Development Lead: Warren Simmons MD, PhD CLIA Number: [id number] Performed By: #### V GKCAB #### [employer] CLIA [id number] [address] [place] [address] Coni [facility]-05-2025 [facility]) MORE KINGSLEY JR. ([id number]) 1965 M Date Time Provider Department 04/05/25 FIGUEREDOART [facility] During your visit today, we recorded [...] Fully Assessed Reason for Visit: Care Coordination [4504] Cmt: Gastroparesis clinic: chart review; new patient call Problem List As Of Date: 04/05/2025 (None) Encounter Status:Closed by SHENA STOCKTON on 04/05/25 Normal [facility] Debridementon 03-28-2025 SCOTT Vaughn 03/28/2025 4:19 PM Debridement Performed by: SCOTT Vaughn Authorized by: SCOTT Vaughn Consent: Consent obtained: Verbal and written Consent given by: Patient Risks discussed: Yes Debridement Details: Performed by: [employer] Type: Sharp Level: Subcutaneous Tissue, Devitalized tissue and other material debrided: Callus and subcutaneous tissue Anesthesia administration: topical Anesthesia: EMLA Total Surface Area Debrided cm^2: 10.37 Specimen Taken: None Instrument: Curette Amount of bleeding: Medium Bleeding Control: Pressure Response to treatment: Procedure was tolerated well Tissue Applied?: No MANUALLY TRANSCRIBED RESULTS Include [employer] CBC AND AUTO DIFFon 03-04-20 ABSOLUTE BASOPHIL 0.2 X10E9/L Normal 0.0-0.2 [facility] Comment on above: Performed By: #### C BCA, CMP #### [facility] ([id number]) [address] [place] [address] 05146 ABSOLUTE NEUTROPHIL 6.0 X10E9/L Normal 1.5-6.6 [facility] Comment on above: Performed By: #### C BCA, CMP #### [facility] ([id number]) [address] [place] [address] 18041 Basophils/100 WBC (Bld) 2.4 % Normal [facility] Comment on above: Performed By: #### C BCA, CMP #### [facility] ([id number]) [address] [place] [address] 10849 Eosinophils (Bld) [#/Vol] 0.3 10*3/uL Normal 0.0-0.4 [facility] Comment on above: Performed By: #### C BCA, CMP #### [facility] ([id number]) [address] [place] [address] 72158 Eosinophils/100 WBC (Bld) 3.4 % Normal [facility] Comment on above: Performed By: #### C BCA, CMP #### [facility] ([id number]) [address] [place] [address] 17893 Erythrocyte distribution width (RBC) [Ratio] 15.0 % Normal 11.5-15.0 [facility] Comment on above: Performed By: #### C BCA, CMP #### [facility] ([id number]) [address] [place] [address] 47757 Hematocrit (Bld) [Volume fraction] 40.0 % Normal 39-49 [facility] Comment on above: Performed By: #### C BCA, CMP #### [facility] ([id number]) [address] [place] [address] 86223 Hemoglobin (Bld) [Mass/Vol] 13.7 g/dL Normal 13.0-17.0 [facility] Comment on above: Performed By: #### C BCA, CMP #### [facility] ([id number]) [address] [place] [address] 83554 Lymphocytes (Bld) [#/Vol] 2.1 10*3/uL Normal 1.0-3.5 [facility] Comment on above: Performed By: #### C BCA, CMP #### [facility] ([id number]) [address] [place] [address] 89467 Lymphocytes/100 WBC (Bld) 21.1 % Normal [facility] Comment on above: Performed By: #### C MELANIA, CMP #### [facility] ([id number]) [address] [place] [address] 13990 MCH (RBC) [Entitic mass] 28.8 pg Normal 27-34 [facility] Comment on above: Performed By: #### C MELANIA, CMP #### [facility] ([id number]) [address] [place] [address] 10997 MCHC (RBC) [Mass/Vol] 34.3 g/dL Normal 32-36 [facility] Comment on above: Performed By: #### C MELANIA, CMP #### [facility] ([id number]) [address] [place] [address] [place] [address] MCV (RBC) [Entitic vol] 84 fL Normal 80-100 [facility] Comment on above: Performed By: #### C BCA, CMP #### [facility] ([id number]) [address] [place] [address] 76285 Monocytes (Bld) [#/Vol] 1.4 10*3/uL High 0-0.9 [facility] Comment on above: Performed By: #### C BCA, CMP #### [facility] ([id number]) [address] [place] [address] 48759 Monocytes/100 WBC (Bld) 13.4 % Normal [facility] Comment on above: Performed By: #### C MELANIA, CMP #### [facility] ([id number]) [address] [place] [address] 78697 Neutrophils/100 WBC (Bld) 59.7 % Normal [facility] Comment on above: Performed By: #### C MELANIA, CMP #### [facility] ([id number]) [address] [place] [address] 52314 Platelet mean volume (Bld) [Entitic vol] 8.1 fL Normal 7-12 [facility] Comment on above: Performed By: #### C MELANIA, CMP #### [facility] ([id number]) [address] [place] [address] 23589 Platelets (Bld) [#/Vol] 334 10*3/uL Normal 150-450 [facility] Comment on above: Performed By: #### C MELANIA, CMP #### [facility] ([id number]) [address] [place] [address] 47668 RBC COUNT 4.76 X10E12/L Normal 4.10-5.70 [facility] Comment on above: Performed By: #### C MELANIA, CMP #### [facility] ([id number]) [address] [place] [address] 98856 WBC (Bld) [#/Vol] 10.1 10*3/uL Normal 4.0-11.0 [facility] Comment on above: Performed By: #### C MELANIA, CMP #### [facility] ([id number]) [address] [place] [address] 07595 COMPREHENSIVE METABOLIC PANE Anuel 03-04-2025 Albumin [Mass/Vol] 2.9 g/dL Low 3.2-5.3 [facility] Comment on above: Performed By: #### C BCA, CMP #### [facility] ([id number]) [address] [place] [address] 45481 ALP [Catalytic activity/Vol] 95 U/L Normal 39-130 [facility] Comment on above: Performed By: #### C BCA, CMP #### [facility] ([id number]) [address] [place] [address] 20320 ALT [Catalytic activity/Vol] 15 U/L Normal 0-40 [facility] Comment on above: Performed By: #### C BCA, CMP #### [facility] ([id number]) [address] [place] [address] 33528 Anion gap [Moles/Vol] 7 mmol/L Normal 5-15 [facility] Comment on above: Performed By: #### C BCA, CMP #### [facility] ([id number]) [address] [place] [address] 25092 AST [Catalytic activity/Vol] 18 U/L Normal 0-41 [facility] Comment on above: Performed By: #### C BCA, CMP #### [facility] ([id number]) [address] [place] [address] 90959 Bilirubin [Mass/Vol] 0.9 mg/dL Normal 0.3-1.2 [facility] Comment on above: Performed By: #### C BCA, CMP #### [facility] ([id number]) [address] [place] [address] 17007 Calcium [Mass/Vol] 8.3 mg/dL Low 8.5-10.5 [facility] Comment on above: Performed By: #### C BCA, CMP #### [facility] ([id number]) [address] [place] [address] 67584 Chloride [Moles/Vol] 102 mmol/L Normal 98-109 [facility] Comment on above: Performed By: #### C BCA, CMP #### [facility] ([id number]) [address] [place] [address] 41178 CO2 [Moles/Vol] 23 mmol/L Normal 22-32 [facility] Comment on above: Performed By: #### C BCA, CMP #### [facility] ([id number]) [address] [place] [address] 35254 Creatinine [Mass/Vol] 1.20 mg/dL Normal 0.70-1.20 [facility] Comment on above: Result Comment: METH OD TRACEABLE TO IDMS STANDARD Performed By: #### C BCA, CMP #### [facility] ([id number]) [address] [place] [address] 00269 GFR/1.73 sq M.predicted among non-blacks MDRD (S/P/Bld) [Vol rate/Area] 70 mL/min/{1.73_m2} Normal >59 [facility] Comment on above: Result Comment: Reported eGFR is based on the CKD-EPI 2020 equation that does not use a race coefficient. Performed By: #### C BCA, CMP #### [facility] ([id number]) [address] [place] [address] 51027 Glucose [Mass/Vol] 213 mg/dL High 65-99 [facility] Comment on above: Performed By: #### C BCA, CMP #### [facility] ([id number]) [address] [place] [address] 69925 Potassium [Moles/Vol] 3.6 mmol/L Normal 3.5-5.0 [facility] Comment on above: Performed By: #### C BCA, CMP #### [facility] ([id number]) [address] [place] [address] 24643 Protein [Mass/Vol] 8.3 g/dL High 6.0-8.0 [facility] Comment on above: Performed By: #### C BCA, CMP #### [facility] ([id number]) [address] [place] [address] 15978 Sodium [Moles/Vol] 132 mmol/L Low 134-146 [facility] Comment on above: Performed By: #### C BCA, CMP #### [facility] ([id number]) [address] [place] [address] 71594 Urea nitrogen [Mass/Vol] 18 mg/dL Normal 5-23 [facility] Comment on above: Performed By: #### C MELANIA, CMP #### [facility] ([id number]) [address] [place] [address] 27750 Lactate (P damon) [Moles/Vol]o n 03-04-2025 LACTATE W/REFLEX 1.3 mmol/L Normal 0.4-2.0 [facility] Comment on above: Result Comment: Result did not trigger repeat Lactate, re-order if needed. Performed By: #### 3 2133-1 #### [facility] ([id number]) [address] [place] [address] 24166 SUPERFICIAL WOUND CULTUREon 03-04-2025 Bacteria identified Aer [...] 0.25 F DOXYCYCLINE S <=0.5 F Susceptible [facility] Comment on above: Performed By: #### 6 32-0 #### [facility] ([id number]) [address], [address] [place] [address] XR FOOT RT MIN 3 VWSon 03-04 [...] Hawthorne MD on 03/04/2025 10:59 AM Normal [facility] 11-21-2024 [facility] ([facility] MORE KINGSLEY JR. ([id number]) 1965 M Date Time Provider Department 11/21/24 DAVIDA PRICE [facility] During your visit today, we recorded the following information about you: Leonard Cadet 11/21/2024 3:[address] Yoon's office phones requesting office note from October 24 When completed, please fax to [phone] Davida Hawkins MD 11/24/2024 9:41 AM Signed [...] patient. Dr. Figueredo is currently scheduling in . I will call patient. 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 ([id number]) 1965 M Date Time Provider Department 06/22/24 ART FIGUEREDO [facility] During your visit today, we recorded the following information about you: Deonna Patel 06/22/2024 6:55 AM Signed Gp ref and ges in scanned docs Needs registration Cassidy Magi Zavaleta 06/27/2024 8:50 AM Signed Left VM for patient to call office to update registration and go over records needed for review prior to scheduling. Elis Kingstonraphael Mali 06/27/2024 12:47 PM Signed Patient returning call to schedule Magi Benjamin Meghann 07/04/2024 11:26 AM Signed Left VM for patient to call office to update registration and go over records needed for review prior to scheduling. Christakendrick TheeMali lim 07/04/2024 5:12 PM Signed Patient returning call to schedule Elis Carey Mali 07/05/2024 8:20 AM Signed Received fax from [facility] asking if he has been scheduled. I faxed them back that we have tried to contact him and have been unsuccessful, that he is on our list to call back. Magi Benjamin 07/11/2024 5:12 PM Signed Gastric Emptying Study? [...] 10:57 AM Signed Dexcom or empties trial. [facility]. EGG is in. Art Figueredo DO 07/12/2024 10:57 AM Signed Addended by: ART FIGUEREDO on: 07/12/2024 10:57 AM Modules accepted: Orders Layla Elena RN 07/12/2024 12:16 PM Signed Screens positive for EMPTIES medically however, unsure if will be complaint with follow ups evaluate at [facility] ISAIAS Aparicio Rose M 07/13/2024 11:43 AM Signed Patient is scheduled at [facility] with GP Team Allergies As of Date: 06/22/2024 (Not on File) Date Reviewed: Never Reviewed Reason for Visit: Appointment [186] Primary Visit Diagnosis:Gastroparesi s [K31.84] Order(s):EGG (ELECTROGASTROGRAPHY) [67155ELW] Order #: [id number] Problem List As Of Date: 06/22/2024 (None) Encounter Status:Closed by DEONNA PATEL on 06/22/24 Normal [facility] Glucose Glucometer (BldC) [M ass/Vol]Ordered By: Tracy Yoon on 02-03-2024 Glucose [Mass/Vol] 234 mg/dL [facility] Comment on above: Random Glucose Refer ence Range is dependent on time and content of last meal. Glucose of more than 200 mg/dL in a nonstressed, ambulatory subject supports the diagnosis of Diabetes Mellitus. No Panel InformationOrdered By: Tracy Yoon on 02-03-2024 Bedside Glucose Comment Glu2: cleaned meter [facility] A1C HEMOGLOBINon 11-08-2023 HbA1c (Bld) [Mass fraction] 10.4 % [employer] Other Glucose - FINGER STICKon Glucose [Mass/Vol] 319 mg/dL [place] [facility] Other HbA1c (Bld) [Mass fraction]o n 11-08-2023 A1C HEMOGLOBIN [employer] Other XR CHEST 1 Von 03-19-2023 XR CHEST 1 V ONE-VIEW CHEST RADIOGRAPH, 03/18/2023 8:32 PM EDT COMPARISON: Chest, 01/20/2021. CLINICAL HISTORY: Dizziness near syncope. Findings and impression: 1. Minimal linear atelectasis or scarring in the lingula. Lungs otherwise clear. 2. Borderline heart size. 3. No acute osseous abnormality. Electronically authenticated by: Mahad DIXON Date: 2023-03-18 22:26 Normal [facility] BNPon 03-18-2023 Natriuretic peptide B (Bld) [Mass/Vol] 174.0 pg/mL Normal <=900.0 [facility] Comment on above: Performed By: #### H STROPN, CMP, BNP #### [facility] [address] [place] [address] Dr. Michael Gonzales CBC AUTO DIFFon 03-18-2023 BASO # 0.1 103/ul Normal 0.0-0.1 [facility] Comment on above: Performed By: #### C BC #### [facility] [address] [address] [address] Michael Gonzales Basophils/100 WBC (Bld) 1.4 % Normal 0.2-2.0 [facility] Comment on above: Performed By: #### C BC #### [facility] [address] [address] [address] Michael Gonzales EO # 0.2 103/ul Normal 0.0-0.7 [facility] Comment on above: Performed By: #### C BC #### [facility] [address] [place] [address] Dr. Michael Gonzales Eosinophils/100 WBC (Bld) 2.3 % Normal 0.9-7.0 [facility] Comment on above: Performed By: #### C BC #### [facility] [address] [place] [address] Dr. Michael Gonzales Erythrocyte distribution width (RBC) [Ratio] 13.9 % Normal 11.0-15.0 [facility] Comment on above: Performed By: #### C BC #### [facility] [address] [place] [address] Dr. Michael Gonzales Hematocrit (Bld) [Volume fraction] 43.6 % Normal 42.0-54.0 [facility] Comment on above: Performed By: #### C BC #### [facility] [address] [place] [address] Dr. Michael Gonzales Hemoglobin (Bld) [Mass/Vol] 14.6 g/dL Normal 14.0-18.0 [facility] Comment on above: Performed By: #### C BC #### [facility] [address] [place] [address] Dr. Michael Gonzales IG # 0.05 10e3/ul Critically high 0.00-0.03 [facility] Comment on above: Performed By: #### C BC #### [facility] [address] [place] [address] Dr. Michael Gonzales IG % 0.5 % Normal 0.0-0.5 [facility] Comment on above: Performed By: #### C BC #### [facility] [address] [place] [address] Dr. Michael Gonzales LYMPH # 2.4 103/ul Normal 1.2-3.8 [facility] Comment on above: Performed By: #### C BC #### [facility] [address] [place] [address] Dr. Michael Gonzales Lymphocytes/100 WBC (Bld) 26.3 % Normal 20.5-60.0 [facility] Comment on above: Performed By: #### C BC #### [facility] [address] [place] [address] Dr. Michael Gonzales MANUAL DIFF REQ NO Normal [facility] Comment on above: Performed By: #### C BC #### [facility] [address] [place] [address] Dr. Michael Gonzales MCH (RBC) [Entitic mass] 28.7 pg Normal 25.9-34.0 [facility] Comment on above: Performed By: #### C BC #### [facility] [address] [place] [address] Dr. Michael Gonzales MCHC (RBC) [Mass/Vol] 33.5 g/dL Normal 29.9-35.2 [facility] Comment on above: Performed By: #### C BC #### [facility] [address] [place] [address] Dr. Michael Gonzales MCV (RBC) [Entitic vol] 85.7 fL Normal 80.0-94.0 [facility] Comment on above: Performed By: #### C BC #### [facility] [address] [place] [address] Dr. Michael Gonzales MONO # 1.3 103/ul Critically high 0.3-0.8 [facility] Comment on above: Performed By: #### C BC #### [facility] [address] [place] [address] Dr. Michael Gonzales Monocytes/100 WBC (Bld) 13.6 % Critically high 1.7-12.0 [facility] Comment on above: Performed By: #### C BC #### [facility] [address] [place] [address] Dr. Michael Gonzales NEUT # 5.2 103/ul Normal 1.4-6.5 [facility] Comment on above: Performed By: #### C BC #### [facility] [address] [place] [address] Dr. Michael Gonzales Neutrophils/100 WBC (Bld) 55.9 % Normal 43.0-75.0 [facility] Comment on above: Performed By: #### C BC #### [facility] [address] [place] [address] Dr. Michael Gonzales Platelet mean volume (Bld) [Entitic vol] 10.9 fL Normal 9.5-13.5 [facility] Comment on above: Performed By: #### C BC #### [facility] [address] [place] [address] Dr. Michael Gonzales PLT 219 103/ul Normal 150-450 [facility] Comment on above: Performed By: #### C BC #### [facility] [address] [place] [address] Dr. Michael Gonzales RBC 5.09 106/ul Normal 4.70-6.10 [facility] Comment on above: Performed By: #### C BC #### [facility] [address] [place] [address] Dr. Michael Gonzales WBC 9.2 103/ul Normal 4.0-11.0 [facility] Comment on above: Performed By: #### C BC #### [facility] [address] [place] [address] Dr. Michael Gonzales MAGNESIUMon 03-18-2023 Magnesium [Mass/Vol] 2.0 mg/dL Normal 1.8-2.4 [facility] Comment on above: Performed By: #### M G #### [facility] [address] [place] [address] Dr. Michael Gonzales PROF 14(COMP METB)on 04-27-2 023 Albumin [Mass/Vol] 3.3 g/dL Critically low 3.4-5.0 [facility] Comment on above: Performed By: #### H STROPN, CMP, BNP #### [facility] [address] [address] [address] Michael Gonzales Albumin/Globulin [Mass ratio] 0.7 {ratio} Normal [facility] Comment on above: Performed By: #### H STROPN, CMP, BNP #### [facility] [address] [address] [address] Michael Gonzales ALP [Catalytic activity/Vol] 118 U/L Critically high 46-116 [facility] Comment on above: Performed By: #### H STROPN, CMP, BNP #### [facility] [address] [place] [address] Dr. Michael Gonzales ALT [Catalytic activity/Vol] 19 U/L Normal 16-63 [facility] Comment on above: Performed By: #### H STROPN, CMP, BNP #### [facility] [address] [place] [address] Dr. Michael Gonzales Anion gap [Moles/Vol] 13.3 mmol/L Normal [facility] Comment on above: Performed By: #### H STROPN, CMP, BNP #### [facility] [address] [place] [address] Dr. Michael Gonzales AST [Catalytic activity/Vol] 24 U/L Normal 15-37 [facility] Comment on above: Performed By: #### H STROPN, CMP, BNP #### [facility] [address] [place] [address] Dr. Michael Gonzales Bilirubin [Mass/Vol] 1.0 mg/dL Normal 0.2-1.0 [facility] Comment on above: Performed By: #### H STROPN, CMP, BNP #### [facility] [address] [place] [address] Dr. Michael Gonzales Calcium [Mass/Vol] 8.7 mg/dL Normal 8.5-10.1 [facility] Comment on above: Performed By: #### H STROPN, CMP, BNP #### [facility] [address] [address] [address] Michael Gonzales Chloride [Moles/Vol] 101 mmol/L Normal 98-107 [facility] Comment on above: Performed By: #### H STROPN, CMP, BNP #### [facility] [address] [address] [address] Michael Gonzales CO2 [Moles/Vol] 22.0 mmol/L Normal 21.0-32.0 [facility] Comment on above: Performed By: #### H STROPN, CMP, BNP #### [facility] [address] [address] [address] Michael Gonzales Creatinine [Mass/Vol] 2.08 mg/dL Critically high 0.70-1.30 [facility] Comment on above: Performed By: #### H STROPN, CMP, BNP #### [facility] [address] [address] [address] Michael Gonzales EGFR-AF SAO TOMEAN 40 mL/min/1.73m2 Critically low >=60 [facility] Comment on above: Performed By: #### H STROPN, CMP, BNP #### [facility] [address] [address] [address] Michael Gonzales EGFR-NON AF SAO TOMEAN 33 mL/min/1.73m2 Critically low >=60 [facility] Comment on above: Performed By: #### H STROPN, CMP, BNP #### [facility] [address] [address] [address] Michael Gonzales Globulin (S) [Mass/Vol] 4.6 g/dL Normal [facility] Comment on above: Performed By: #### H STROPN, CMP, BNP #### [facility] [address] [address] [address] Michael Gonzales Glucose [Mass/Vol] 319 mg/dL Critically high 74-106 [facility] Comment on above: Performed By: #### H STROPN, CMP, BNP #### [facility] [facility] [address] [address] [address] Michael Gonzales Potassium [Moles/Vol] 4.3 mmol/L Normal 3.5-5.1 [facility] Comment on above: Performed By: #### H STROPN, CMP, BNP #### [facility] [address] [place] [address] Dr. Michael Gonzales Protein [Mass/Vol] 7.9 g/dL Normal 6.4-8.2 [facility] Comment on above: Performed By: #### H STROPN, CMP, BNP #### [facility] [address] [place] [address] Dr. Michael Gonzales Sodium [Moles/Vol] 132 mmol/L Critically low 136-145 Th [facility] Comment on above: Performed By: #### H STROPN, CMP, BNP #### [facility] [address] [place] [address] Dr. Michael Gonzales Urea nitrogen [Mass/Vol] 33.0 mg/dL Critically high 7.0-18.0 [facility] Comment on above: Performed By: #### H STROPN, CMP, BNP #### [facility] [address] [place] [address] Dr. Michael Gonzales Urea nitrogen/Creatinine [Mass ratio] 15.9 mg/mg Normal [facility] Comment on above: Performed By: #### H YASMEEN, CMP, BNP #### [facility] [address] [place] [address] Dr. Michael Gonzales PROTIMEon 03-18-2023 INR Coag (PPP) [Relative time] 0.93 {INR} Normal [facility] Comment on above: Performed By: #### P TT, PT #### [facility] [address] [place] [address] Dr. Michael Gonzales INR GUIDELINES SEE BELOW Normal [facility] Comment on above: Result Comment: AMAURI RED INR: 2.0 - 3.0 CONDITIONS NOT LISTED BELOW 2.5 - 3.5 FOR PROSTHETIC HEART VALVE REPLACEMENT 2.5 - 3.5 RECURRENT THROMBOSIS Performed By: #### P TT, PT #### [facility] [address] [place] [address] Dr. Michael Gonzales PT Coag (PPP) [Time] 9.9 s Normal 9.0-11.6 [facility] Comment on above: Performed By: #### P TT, PT #### [facility] [address] [place], [place] [address] Dr. Michael Gonzales PTTon 03-18-2023 aPTT Coag (Bld) [Time] 26.5 s Normal 22.3-36.2 [facility] Comment on above: Performed By: #### P TT, PT #### [facility] [address] [place], [place] [address] Dr. Michael Gonzales TROPONIN, HIGH SENSITIVITYon 03-18-2023 HSTROP 7.3 pg/mL Normal 4.0-76.1 [facility] Comment on above: Result Comment: CUT- OFF POINTS HAVE BEEN ESTABLISHED BASED ON THE FOURTH UNIVERSAL DEFINITIONS OF MYOCARDIAL INFARCTION. THE UPPER REFERENCE LIMIT (URL) OF TROPONIN, DEFINED THE 99TH PERCENTILE OF cTnI DISTRIBUTION IN A REFERENCE POPULATION, HAS BEEN CONFIRMED THE DECISION THRESHOLD FOR [place] DIAGNOSIS. Performed By: #### H STROPN, CMP, BNP #### [facility] [address] [address] [address] Michael Gonzales XR FOOT LEFT 3+ [...] osteomyelitis is not excluded. Workstation ID: [id number] [facility] EXAMINATION: XR FOOT LEFT 3+ VIEWS (STANDARD) 01/24/2021 1:27 pm HISTORY: ORDERING SYSTEM PROVIDED HISTORY: Subacute osteomyelitis of left foot (HCC), TECHNOLOGIST PROVIDED HISTORY: Illness/Other Reason for exam: non healing wound on top of foot Cancer History: Surgery, RadiationHistory: Encounter Type: Initial Additional signs and symptoms: pain ORDERING SYSTEM PROVIDED DIAGNOSIS CODES: M86.272 Subacute osteomyelitis of left foot (HCC) COMPARISON: 01/09/2021 [facility] Interface, Rad In Fu ji Speechq - 01/25/2021 2:00 PM EST [...] osteomyelitis is not excluded. Workstation ID: [id number] [facility] XR FOOT LEFT 3+ VIEWS (STAND ZAHRA)on [...] ID: [id number] Dictated by: RAMONE HAWTHORNE on Sat Jan 25, 2021 1:58:20 PM EST Transcribed by: RAMONE HAWTHORNE on Sat Jan 25, 2021 1:58:20 PM EST Finalized by: RAMONE HAWTHORNE on Sat Jan 25, 2021 1:58:20 PM EST Normal [facility] Comment on above: Order Comment: Injur y/Trauma or Illness?:Illness/Other How long have you had these symptoms (acute/chronic)?:Acute Reason for exam?:non healing wound on top of foot History of cancer?: Surgeries, chemotherapy, or radiation?: Type of Exam?:Initial Additional signs and symptoms?:pain Otheron 01-09-2021 No acute osseous abnormality. Workstation ID: [id number] [facility] EXAMINATION: XR ANKL E LEFT 3+ VIEWS [...] tissues are diffusely edematous with skin thickening. [facility] Interface, Rad In Fu ji Speechq - 01/09/2021 4:13 PM EST EXAMINATION: XR ANKLE LEFT 3+ VIEWS (STANDARD); XR FOOT LEFT 3+ VIEWS (STANDARD) 01/09/2021 3:32 pm HISTORY: ORDERING SYSTEM PROVIDED HISTORY: martell TECHNOLOGIST PROVIDED HISTORY: Illness/Other Reason for exam: [...] No acute osseous abnormality. Workstation ID: [id number] [facility] XR ANKLE LEFT 3+ VIEWS (JONI HUNG)on 01-09-2021 XR ANKLE LEFT 3+ VIEWS (STANDARD) EXAMINATION: XR ANKLE LEFT 3+ VIEWS (STANDARD); XR FOOT LEFT 3+ VIEWS (STANDARD) 01/09/2021 3:32 pm HISTORY: ORDERING SYSTEM PROVIDED HISTORY: martell TECHNOLOGIST PROVIDED HISTORY: Illness/Other Reason for exam: [...] PM EST Finalized by: BRAEDEN LEGGETT on WedJan 09, 2021 4:10:37 PM EST Normal [facility] Comment on above: Order Comment: Injur [...] 3:32 pm HISTORY: ORDERING SYSTEM PROVIDED HISTORY: martell TECHNOLOGIST PROVIDED HISTORY: Illness/Other Reason for exam: [...] PM EST Finalized by: BRAEDEN LEGGETT on WedJan 09, 2021 4:10:37 PM EST [facility] Comment on above: Order Comment: Injur y/Trauma or Illness?:Illness/Other How long have you had these symptoms (acute/chronic)?:Acute Reason for exam?:open wound History of cancer?: Surgeries, chemotherapy, or radiation?: Type of Exam?:Initial Additional signs and symptoms?: Biopsyon 12-27-2020 Roger Puente PM 12/27/2020 11:33 PM Biopsy Timeout: Verbal Consent obtained?: Yes Consent given by:: Patient Procedure: Procedure Performed for: Bone Biopsy - Left foot Performed by: Physician Additional Procedure details:: A bone biopsy of the midfoot was obtained using a rongeur and sent to microbiology for culture and sensitivity Response to Treatment:: Procedure was tolerated well [facility] Basic Metabolic Panelon 12-3 Anion gap [Moles/Vol] 9 mmol/L Low 10 - 2 0 mmol/L [facility] Calcium [Mass/Vol] 8.9 mg/dL 8.4 - 10. 2 mg/dL [facility] Chloride [Moles/Vol] 104 mmol/L 98 - 10 8 mmol/L [facility] Creatinine [Mass/Vol] 1.01 mg/dL 0.50 - 1.30 [facility] GFR/1.73 sq M predicted among non-blacks MDRD (S/P/Bld) [Vol rate/Area] The eGFR should be used for monitoring renal function only and not for medication dosing. [facility] GFR/1.73 sq M.predicted CKD-EPI (S/P/Bld) [Vol rate/Area] 84 >=60 mL/min/1.73 m2 [facility] Glucose [Mass/Vol] 156 mg/dL High 65 - 99 mg/dL [facility] HCO3 [Moles/Vol] 27 mmol/L 21 - 32 mmol/L [facility] Interpretation and review of laboratory results Abnormal [facility] Potassium [Moles/Vol] 3.8 mmol/L 3.5 - 5.1 mmol/L [facility] Sodium [Moles/Vol] 136 mmol/L 135 - 145 mmol/L [facility] Urea nitrogen [Mass/Vol] 15 mg/dL 8 - 25 mg/dL [facility] Urea nitrogen/Creatinine [Mass ratio] 14.9 mg/mg [facility] CBCon 11-21-2020 Erythrocyte distribution width (RBC) [Entitic vol] 15.4 % High 11.6 - 14.8 % [facility] Hematocrit (Bld) [Volume fraction] 34.1 % Low 41 - 53 % [facility] Hemoglobin (Bld) [Mass/Vol] 10.3 g/dL Low 13.5 - 17.5 g/dL [facility] Interpretation and review of laboratory results Abnormal [facility] MCH (RBC) [Entitic mass] 25.5 pg Low 26 - 34 pg [facility] MCHC (RBC) [Mass/Vol] 30.2 g/dL Low 31 - 37 g/dL [facility] MCV (RBC) [Entitic vol] 84.4 fL 80 - 100 fL [facility] Nucleated RBC (Bld) [#/Vol] 0.00 10*3/uL [facility] Nucleated RBC/100 WBC (Bld) [Ratio] 0.0 % [facility] Platelet mean volume (Bld) [Entitic vol] 10.0 fL 9.4 - 12.4 fL [facility] Platelets (Bld) [#/Vol] 494 10*3/uL High [facility] RBC (Bld) [#/Vol] 4.04 10*6/uL Low [facility] WBC (Bld) [#/Vol] 6.26 10*3/uL [facility] Magnesium Levelon 11-21-2020 Interpretation and review of laboratory results Normal [facility] Magnesium [Mass/Vol] 1.8 mg/dL 1.6 - 2 .4 mg/dL [facility] POC Glucoseon 11-21-2020 Glucose [Mass/Vol] 157 mg/dL High 65 - 99 mg/dL [facility] Interpretation and review of laboratory results Abnormal [facility] Glucose [Mass/Vol] 132 mg/dL High 65 - 99 mg/dL [facility] Interpretation and review of laboratory results Abnormal [facility] Glucose [Mass/Vol] 154 mg/dL High 65 - 99 mg/dL [facility] Interpretation and review of laboratory results Abnormal [facility] Basic Metabolic Panelon 10-24 Anion gap [Moles/Vol] 8 mmol/L Low 10 - 2 0 mmol/L [facility] Calcium [Mass/Vol] 8.6 mg/dL 8.4 - 10. 2 mg/dL [facility] Chloride [Moles/Vol] 103 mmol/L 98 - 10 8 mmol/L [facility] Creatinine [Mass/Vol] 1.02 mg/dL 0.50 - 1.30 [facility] GFR/1.73 sq M predicted among non-blacks MDRD (S/P/Bld) [Vol rate/Area] The eGFR should be used for monitoring renal function only and not for medication dosing. [facility] GFR/1.73 sq M.predicted CKD-EPI (S/P/Bld) [Vol rate/Area] 83 >=60 mL/min/1.73 m2 [facility] Glucose [Mass/Vol] 151 mg/dL High 65 - 99 mg/dL [facility] HCO3 [Moles/Vol] 28 mmol/L 21 - 32 mmol/L [facility] Potassium [Moles/Vol] 3.7 mmol/L 3.5 - 5.1 mmol/L [facility] Sodium [Moles/Vol] 135 mmol/L 135 - 145 mmol/L [facility] Urea nitrogen [Mass/Vol] 13 mg/dL 8 - 25 mg/dL [facility] Urea nitrogen/Creatinine [Mass ratio] 12.7 mg/mg [facility] CBCon 11-20-2020 Erythrocyte distribution width (RBC) [Entitic vol] 15.7 % High 11.6 - 14.8 % [facility] Hematocrit (Bld) [Volume fraction] 32.9 % Low 41 - 53 % [facility] Hemoglobin (Bld) [Mass/Vol] 9.9 g/dL Low 13.5 - 17.5 g/dL [facility] Interpretation and review of laboratory results Abnormal [facility] MCH (RBC) [Entitic mass] 25.6 pg Low 26 - 34 pg [facility] MCHC (RBC) [Mass/Vol] 30.1 g/dL Low 31 - 37 g/dL [facility] MCV (RBC) [Entitic vol] 85.0 fL 80 - 100 fL [facility] Nucleated RBC (Bld) [#/Vol] 0.00 10*3/uL [facility] Nucleated RBC/100 WBC (Bld) [Ratio] 0.0 % [facility] Platelet mean volume (Bld) [Entitic vol] 10.2 fL 9.4 - 12.4 fL [facility] Platelets (Bld) [#/Vol] 512 10*3/uL High [facility] RBC (Bld) [#/Vol] 3.87 10*6/uL Low [facility] WBC (Bld) [#/Vol] 7.74 10*3/uL [facility] CRP, Inflammationon 11-20-20 20 CRP [Mass/Vol] 162.0 mg/L High <=10.0 [facility] Magnesium Levelon 11-20-2020 Interpretation and review of laboratory results Normal [facility] Magnesium [Mass/Vol] 1.7 mg/dL 1.6 - 2 .4 mg/dL [facility] Otheron 11-20-2020 Interpretation and review of laboratory results Abnormal [facility] POC Glucoseon 11-20-2020 Glucose [Mass/Vol] 121 mg/dL High 65 - 99 mg/dL [facility] Interpretation and review of laboratory results Abnormal [facility] Glucose [Mass/Vol] 117 mg/dL High 65 - 99 mg/dL [facility] Interpretation and review of laboratory results Abnormal [facility] Glucose [Mass/Vol] 147 mg/dL High 65 - 99 mg/dL [facility] Interpretation and review of laboratory results Abnormal [facility] Glucose [Mass/Vol] 177 mg/dL High 65 - 99 mg/dL [facility] Interpretation and review of laboratory results Abnormal [facility] Sedimentation Rateon 020 ESR (Bld) [Velocity] 116 mm/h [facility] Interpretation and review of laboratory results Abnormal [facility] TISSUE EXAMon 11-20-2020 Case Report Surgical Pathology Report Case: [id number] Authorizing Provider: Leanne Cherry DPM Collected: 11/18/2020 12:59 PM Ordering Location: [facility] Received: 11/18/2020 01:28 PM Pathologist: Boy Cortez MD Specimen: Foot, Left, Left Foot Bone [facility] Pathology report final diagnosis Narrative [id number] Tsh1tzw4NcbZMaaGQcOEsh hNUegxYfji60zHR5lW18SJ 5pDAAoZrC9BGVguxS9Jsz6 KSZgDHYhmIEeN174l2xaw1 ixwrGzqZU5kSeyOKCxBRGe YWluXGJcZnMyMCBBLiAgXH Fzd5KqJ4O2ZSEkIBmzn5cn ADOlTRrhc3FdKJtNPTADLS 2YOM2bkON2MGiUBEIDD3yP fZB2NyE6pNJ8BK32IOTbPJ GzeRNdRGnkW655Xj3aMXHq nrIqbLPtfWAqYVucaz56IN F9YGamSxrdcMR0QBbaRrls dQ2duSUEDFBRIsuUIkphlg SxQU4BAJyWRxYPDT68Nm89 CNQcLDPvbAXpMSyrD451VK NhuNPWt350f2mopRDdAXbv QzghpVPlwuP9INfLTWGSVW qXHjFrXI9zSWcTFSZBIjO4 Iq74YFYyGXKxgLAaABscD1 33UAAnWUshXRNml0JuX7Xz YlxmczIwICwgZXhjaXNpb2 06u9xyxESrSFqbYomrzYYz rfS5QTqYHQZGKAyNCwCxEY 5zTFbLQ3VBGkQ3MnBlBBY2 MXwxfXtcZmxkcnNsdCBcJz MwrT0jyLhvhQ9zSlvdazJa AYMkebyuuQqhQGutaI45Hm ShCsBeVGH8eTDsx9Y7ZF2q tUKhwDJojm7xaPNwCAMyoq RvsOXbSNEkO99EBpKIEUPZ I44QRXNOGWJJB9FYX5qHWA Y5HsB5gUZ0LgQ5GxkeXFER VTAAUAvTDA4YEBGJMLAFON 6XJbQgL8iBNCINRuTsSPBQ RCOSRJQxWjFDOL1gSaq8EX ZldQOZd098A5lPVUNRJoXc VLLNWRXKCTFwLJ8JOELMWG QBHN0YYOJCV33IYIBANXGQ W4TLW6yHWGRym9WAdXAzaD C0FlXpVHS3HxsxFL8dVIoW G1GWH9yAYNLnEFKFTIUNMB TuQC6IVUnUZM9ANDXlJKCT TWKSYVUgHbMMBW4bEXwFVW 8JDTSnQMKHTCFENUFwUM7X DQDRJA2GDLZTSQDIR92KRU SGAPCNF2JPC2lULYLRJGWG XbKMDjHQQB9IGGUPGYAMPH 9FTkR9 [facility] Pathology report gross observation Narrative z2ydkDTpKZQfbSC5UnXkUU Yhk6wba9TlfYLhkYQeOKyn oCRolzVdgo95qPH9cT71JV 1cTFSvMgN1GSGunqE9Qbm2 LVZjNHQilVLqT517s3cxj7 hmktJtqQZ0hMfkOUHtLFGt LDrcKKWdUxHiDeAiOCl4XB GbzQ2gUl3joTKxiX2mXITl t3ljuaA6KZQwEaOnYy6eyJ ohWZPjoPPWh47kIjzvJWPf a6VlP9O0AORfJQeld5bsTV PcSEyir0DrKBbFUPXELM6W NF7etEU4UMqZTOQVV8uYxJ H5RLWoaYG9DR24XBWvALPe jXYyQCemJ357iZQaRQmjUa yqmJW8ZIaqSxuhcL4gyZAT EVJWDifIAouuosXnIG5QWE DZTD5UzGP9YBGitUD3ZC75 VFGiEGIdfTMvKSjyQ968VC BsYWluXGZzMjAgIGZyYWdt FM88TWLkHM9iGNGxxvXzdU Aee9GhoC1hUGOxNUZ6WIMt KqR2TCTsYsUzwQwhxa33TL V0t0mjrJIgXRhpObidzUQz oiT6LGjYEZLUZIsXHoUjVB 1fUOcAL0MPKVdQWhxcONI9 M4nmuUE1w9gulENmd7d1ZP gbYNM4hC26COXkLWfuq0bf XBSlFGzoq7XdHNlOCZAIRA 5AUV0jzWV5ZYjCRNKRRIjn BVN1R9pbnLC5c4ylvFSzc3 g4ERpxGQK3lPuzjFSimpri rmLmDIDtQ5DbdDn3pORhVU ZvciBkZWNhbGNpZmljYXRp a58nNNNVp6ZjzVy1UDT1Dm 0vdMPbDVLrhxEiYUXya8Ew dHRlKHMpLlxwYXJccGFyZF lgAESeBT0tbHKgVQvtb8Dr LEP1VG5zuoX1vM7oQGSegp Cdyb4iWJOmpXhlMYAqf9Ho UPuoZIsot0WniFAqMV3zXk R5LNsrKJPxpbFxVNI3DE83 BPALJP0aTovqhLJwJB7MGV B0JZIfAUVvuieeUODgTZRx YlxwYXJcdiBTTUFSVExJU1 GwZSFVLIPUZYQyTyOFSX1d OhIvIZZ5FK4iNzF1UOMyoX D8QQXXHXJVIJgED1TeXLKA QYSEMEGqQL5GMZcOUKFCRB HER16FDBLRJIJBV4NGR5gU BAqESKOYWYVGB80EICZJZO PNM4LLVVDRUFIGXLlIIDFY Ep8LYAUHSLVRXB0WLQsKBm MmTLgFFC43uZKwprPrEXyi JTY8HVy0KrYwrKMjq9PMQD luGBGyJ4EgD7B5BOdyXTA8 Ahv8EwJorLKSTTASEVqVSX WBQp4ICMLLYIRLGC5JDlCz Q5TAGA4VBz6XMHSAKKSFSM 7AXYgWXlHyY8ORJI9BBt4R IHKPJQWZGN3MQjDqWQXVT1 DJAnKDE2mvRAQLZEXNPZJe PcAVYO5kXXPLCL0PYTLNRB DZQ26AQSWRHXSFT5IIEZ0= [facility] Pathology report microscopic observation Narrative Other stain o8ejjVXdYQFurVBoFkMiIB QzULLmg7djTKAktANjDhAo MzNcZnRuYmpcdWMxXGRlZm Jqn6ved251uUYso4kkRGHg AtL2qGJoYCFynYSpE636II NdNQucy3pwh8IwGIPzuCGu g6Q6QCFWhkvtdZq7kEhnS1 5sk9A3XgofK0srFPFqNUMr D2DwDC5dNNFyDsz0COA5GR B6IJQgWYIfR1WkRE1hNHGr xBGjZNj1c1wyuEnrQNTbOJ W8v6xvZIxexlPxRM7koc4y hOt6n1wiflDkJIGkJWKywO QXFKIfG4CoeFdhRp8zaIt5 hQgfVmezFAX7Mvm4XC7kqr 61ofs4fEuxBHVegwmsRpA3 LOzfOOLnjnieJWe3EJmwFT QfdLE5CKHvoMDhK9SvZSLx FE3kzpc9INQ8XZuiPLXxCf C1UBUphWEwMXSmtEyjUTxp a057BSM3JeObKH7mV1Tmz4 Q6xJ9keDAvUDWccUGmUnPx TORxhg6twSHhEKtnn6PsWN D4vwA1yXKswWMuNAHoEG73 Wtjkk9GzLcubRTP5ZLTknd Akk0Bay8zaMuRjzbGeV4rp E3MpRDCwYTBlQFDwEdPgoo Teb7Esu6VekIOapWk6d2aw JGEcRHTtnUdzy6ypWYP9FP MvF6P3xIQlz1mxXQqzHIIz iRU1glD8YDFqiUWqQ5HepD 7wYZIwSA2dmxd1q5ozFOG2 TSbyJNAhOgI4wvL6UWFpqI JmLDOkiEyoKMknp747LBZ4 JxKiVSRfv8LvS2TkmHvjZ5 6leErxE64uFTFpzRbwtJ9j wBzlgX3nZlZvYdUqIVhfdR xwbGFpblxmMVxmczIwXGxh ogwkGVDlJRcmA7kxCaSpWB CrtOntZQemw6SmYQLaZTEn RwCdRTczax7pL28uuUTdXW mdgKuoWGWof09akTGnfVGt Xo1ikOOgMcyyNJW1 [facility] WOUND AEROBIC CULTUREon 10-24 Bacteria identified Aer cx Nom (Wound) Rare growth Staphylococcus aureus Abnormal [facility] Comment on above: This Staphylococcus aureus is Methicillin SUSCEPTIBLE by PBP2a testing. Beta-lactams like Cefazolin and Nafcillin are superior to Vancomycin for treating mSsa. Interpretation and review of laboratory results Abnormal [facility] Microscopic observation Gram stain Nom (Wound) No Organisms Seen [facility] Microscopic observation Gram stain Nom (Wound) Many WBC [facility] Microscopic observation Gram stain Nom (Wound) No Epithelial Cells Seen [facility] Basic Metabolic Panelon - Anion gap [Moles/Vol] 12 mmol/L 10 - 2 0 mmol/L [facility] Calcium [Mass/Vol] 8.8 mg/dL 8.4 - 10. 2 mg/dL [facility] Chloride [Moles/Vol] 103 mmol/L 98 - 10 8 mmol/L [facility] Creatinine [Mass/Vol] 0.92 mg/dL 0.50 - 1.30 [facility] GFR/1.73 sq M predicted among non-blacks MDRD (S/P/Bld) [Vol rate/Area] The eGFR should be used for monitoring renal function only and not for medication dosing. [facility] GFR/1.73 sq M.predicted CKD-EPI (S/P/Bld) [Vol rate/Area] 94 >=60 mL/min/1.73 m2 [facility] Glucose [Mass/Vol] 132 mg/dL High 65 - 99 mg/dL [facility] HCO3 [Moles/Vol] 25 mmol/L 21 - 32 mmol/L [facility] Interpretation and review of laboratory results Abnormal [facility] Potassium [Moles/Vol] 3.8 mmol/L 3.5 - 5.1 mmol/L [facility] Sodium [Moles/Vol] 136 mmol/L 135 - 145 mmol/L [facility] Urea nitrogen [Mass/Vol] 12 mg/dL 8 - 25 mg/dL [facility] Urea nitrogen/Creatinine [Mass ratio] 13.0 mg/mg [facility] CBCon 11-19-2020 Erythrocyte distribution width (RBC) [Entitic vol] 15.7 % High 11.6 - 14.8 % [facility] Hematocrit (Bld) [Volume fraction] 33.2 % Low 41 - 53 % [facility] Hemoglobin (Bld) [Mass/Vol] 10.2 g/dL Low 13.5 - 17.5 g/dL [facility] Interpretation and review of laboratory results Abnormal [facility] MCH (RBC) [Entitic mass] 25.5 pg Low 26 - 34 pg [facility] MCHC (RBC) [Mass/Vol] 30.7 g/dL Low 31 - 37 g/dL [facility] MCV (RBC) [Entitic vol] 83.0 fL 80 - 100 fL [facility] Nucleated RBC (Bld) [#/Vol] 0.00 10*3/uL [facility] Nucleated RBC/100 WBC (Bld) [Ratio] 0.0 % [facility] Platelet mean volume (Bld) [Entitic vol] 9.9 fL 9.4 - 12.4 fL [facility] Platelets (Bld) [#/Vol] 596 10*3/uL High [facility] RBC (Bld) [#/Vol] 4.00 10*6/uL Low [facility] WBC (Bld) [#/Vol] 10.04 10*3/uL [facility] Magnesium Levelon 11-19-2020 Interpretation and review of laboratory results Normal [facility] Magnesium [Mass/Vol] 1.7 mg/dL 1.6 - 2 .4 mg/dL [facility] POC Glucoseon 11-19-2020 Glucose [Mass/Vol] 174 mg/dL High 65 - 99 mg/dL [facility] Interpretation and review of laboratory results Abnormal [facility] Glucose [Mass/Vol] 180 mg/dL High 65 - 99 mg/dL [facility] Interpretation and review of laboratory results Abnormal [facility] Glucose [Mass/Vol] 166 mg/dL High 65 - 99 mg/dL [facility] Interpretation and review of laboratory results Abnormal [facility] Glucose [Mass/Vol] 127 mg/dL High 65 - 99 mg/dL [facility] Interpretation and review of laboratory results Abnormal [facility] Basic Metabolic Panelon 12-2 Anion gap [Moles/Vol] 10 mmol/L 10 - 2 0 mmol/L [facility] Calcium [Mass/Vol] 8.7 mg/dL 8.4 - 10. 2 mg/dL [facility] Chloride [Moles/Vol] 104 mmol/L 98 - 10 8 mmol/L [facility] Creatinine [Mass/Vol] 0.99 mg/dL 0.50 - 1.30 [facility] GFR/1.73 sq M predicted among non-blacks MDRD (S/P/Bld) [Vol rate/Area] The eGFR should be used for monitoring renal function only and not for medication dosing. [facility] GFR/1.73 sq M.predicted CKD-EPI (S/P/Bld) [Vol rate/Area] 86 >=60 mL/min/1.73 m2 [facility] Glucose [Mass/Vol] 136 mg/dL High 65 - 99 mg/dL [facility] HCO3 [Moles/Vol] 27 mmol/L 21 - 32 mmol/L [facility] Interpretation and review of laboratory results Abnormal [facility] Potassium [Moles/Vol] 3.8 mmol/L 3.5 - 5.1 mmol/L [facility] Sodium [Moles/Vol] 137 mmol/L 135 - 145 mmol/L [facility] Urea nitrogen [Mass/Vol] 12 mg/dL 8 - 25 mg/dL [facility] Urea nitrogen/Creatinine [Mass ratio] 12.1 mg/mg [facility] CBCon 11-18-2020 Erythrocyte distribution width (RBC) [Entitic vol] 15.9 % High 11.6 - 14.8 % [facility] Hematocrit (Bld) [Volume fraction] 36.5 % Low 41 - 53 % [facility] Hemoglobin (Bld) [Mass/Vol] 10.9 g/dL Low 13.5 - 17.5 g/dL [facility] Interpretation and review of laboratory results Abnormal [facility] MCH (RBC) [Entitic mass] 25.6 pg Low 26 - 34 pg [facility] MCHC (RBC) [Mass/Vol] 29.9 g/dL Low 31 - 37 g/dL [facility] MCV (RBC) [Entitic vol] 85.9 fL 80 - 100 fL [facility] Nucleated RBC (Bld) [#/Vol] 0.00 10*3/uL [facility] Nucleated RBC/100 WBC (Bld) [Ratio] 0.0 % [facility] Platelet mean volume (Bld) [Entitic vol] 10.2 fL 9.4 - 12.4 fL [facility] Platelets (Bld) [#/Vol] 581 10*3/uL High [facility] RBC (Bld) [#/Vol] 4.25 10*6/uL Low [facility] WBC (Bld) [#/Vol] 8.56 10*3/uL [facility] CRP, Inflammationon 11-18-20 20 CRP [Mass/Vol] 132.0 mg/L High <=10.0 [facility] Interpretation and review of laboratory results Abnormal [facility] Magnesium Levelon 11-18-2020 Interpretation and review of laboratory results Normal [facility] Magnesium [Mass/Vol] 1.8 mg/dL 1.6 - 2 .4 mg/dL [facility] POC Glucoseon 11-18-2020 Glucose [Mass/Vol] 175 mg/dL High 65 - 99 mg/dL [facility] Interpretation and review of laboratory results Abnormal [facility] Glucose [Mass/Vol] 111 mg/dL High 65 - 99 mg/dL [facility] Interpretation and review of laboratory results Abnormal [facility] Glucose [Mass/Vol] 133 mg/dL High 65 - 99 mg/dL [facility] Interpretation and review of laboratory results Abnormal [facility] Glucose [Mass/Vol] 154 mg/dL High 65 - 99 mg/dL [facility] Interpretation and review of laboratory results Abnormal [facility] Sedimentation Rateon 020 ESR (Bld) [Velocity] 110 mm/h High [facility] Interpretation and review of laboratory results Abnormal [facility] APTTon 11-17-2020 aPTT Coag (Bld) [Time] Therapeutic range for APTT's is 68 - 104 seconds [facility] aPTT Coag (Bld) [Time] 32 s [facility] Interpretation and review of laboratory results Normal [facility] Basic Metabolic Panelon 10-23 Anion gap [Moles/Vol] 9 mmol/L Low 10 - 2 0 mmol/L [facility] Calcium [Mass/Vol] 8.6 mg/dL 8.4 - 10. 2 mg/dL [facility] Chloride [Moles/Vol] 105 mmol/L 98 - 10 8 mmol/L [facility] Creatinine [Mass/Vol] 0.94 mg/dL 0.50 - 1.30 [facility] GFR/1.73 sq M predicted among non-blacks MDRD (S/P/Bld) [Vol rate/Area] The eGFR should be used for monitoring renal function only and not for medication dosing. [facility] GFR/1.73 sq M.predicted CKD-EPI (S/P/Bld) [Vol rate/Area] 92 >=60 mL/min/1.73 m2 [facility] Glucose [Mass/Vol] 86 mg/dL 65 - 99 mg/dL [facility] HCO3 [Moles/Vol] 26 mmol/L 21 - 32 mmol/L [facility] Interpretation and review of laboratory results Abnormal [facility] Potassium [Moles/Vol] 3.9 mmol/L 3.5 - 5.1 mmol/L [facility] Sodium [Moles/Vol] 136 mmol/L 135 - 145 mmol/L [facility] Urea nitrogen [Mass/Vol] 11 mg/dL 8 - 25 mg/dL [facility] Urea nitrogen/Creatinine [Mass ratio] 11.7 mg/mg [facility] CBC WITH AUTO DIFFERENTIALon 11-17-2020 Basophils (Bld) [#/Vol] 0.07 10*3/uL [facility] Basophils/100 WBC (Bld) 0.7 % [facility] Eosinophils (Bld) [#/Vol] 0.21 10*3/uL [facility] Eosinophils/100 WBC (Bld) 2.2 % [facility] Erythrocyte distribution width (RBC) [Entitic vol] 15.9 % High 11.6 - 14.8 % [facility] Hematocrit (Bld) [Volume fraction] 36.4 % Low 41 - 53 % [facility] Hemoglobin (Bld) [Mass/Vol] 11.0 g/dL Low 13.5 - 17.5 g/dL [facility] Immature granulocytes (Bld) [#/Vol] 0.11 10*3/uL [facility] Immature granulocytes/100 WBC (Bld) 1.20 % [facility] Comment on above: The IG parameter is the percentage of metamyelocytes, myelocytes and promyelocytes. An immature granulocyte count (IG) of 1% or more suggests the possibility of infection, an IG count of 3% is very likely related to an infection. Interpretation and review of laboratory results Abnormal [facility] Lymphocytes (Bld) [#/Vol] 2.31 10*3/uL [facility] Lymphocytes/100 WBC (Bld) 24.6 % [facility] MCH (RBC) [Entitic mass] 25.8 pg Low 26 - 34 pg [facility] MCHC (RBC) [Mass/Vol] 30.2 g/dL Low 31 - 37 g/dL [facility] MCV (RBC) [Entitic vol] 85.4 fL 80 - 100 fL [facility] Monocytes (Bld) [#/Vol] 0.92 10*3/uL High [facility] Monocytes/100 WBC (Bld) 9.8 % [facility] Neutrophils (Bld) [#/Vol] 5.78 10*3/uL [facility] Neutrophils/100 WBC (Bld) 61.5 % [facility] Nucleated RBC (Bld) [#/Vol] 0.00 10*3/uL [facility] Nucleated RBC/100 WBC (Bld) [Ratio] 0.0 % [facility] Platelet mean volume (Bld) [Entitic vol] 10.2 fL 9.4 - 12.4 fL [facility] Platelets (Bld) [#/Vol] 644 10*3/uL High [facility] RBC (Bld) [#/Vol] 4.26 10*6/uL Low [facility] WBC (Bld) [#/Vol] 9.40 10*3/uL [facility] Magnesium Levelon 11-17-2020 Interpretation and review of laboratory results Normal [facility] Magnesium [Mass/Vol] 1.8 mg/dL 1.6 - 2 .4 mg/dL [facility] POC Glucoseon 11-17-2020 Glucose [Mass/Vol] 192 mg/dL High 65 - 99 mg/dL [facility] Interpretation and review of laboratory results Abnormal [facility] Glucose [Mass/Vol] 132 mg/dL High 65 - 99 mg/dL [facility] Interpretation and review of laboratory results Abnormal [facility] Glucose [Mass/Vol] 148 mg/dL High 65 - 99 mg/dL [facility] Interpretation and review of laboratory results Abnormal [facility] Glucose [Mass/Vol] 94 mg/dL 65 - 99 mg/dL [facility] Interpretation and review of laboratory results Normal [facility] Basic Metabolic Panelon 10-23 Anion gap [Moles/Vol] 8 mmol/L Low 10 - 2 0 mmol/L [facility] Calcium [Mass/Vol] 8.6 mg/dL 8.4 - 10. 2 mg/dL [facility] Chloride [Moles/Vol] 104 mmol/L 98 - 10 8 mmol/L [facility] Creatinine [Mass/Vol] 1.03 mg/dL 0.50 - 1.30 [facility] GFR/1.73 sq M predicted among non-blacks MDRD (S/P/Bld) [Vol rate/Area] The eGFR should be used for monitoring renal function only and not for medication dosing. [facility] GFR/1.73 sq M.predicted CKD-EPI (S/P/Bld) [Vol rate/Area] 82 >=60 mL/min/1.73 m2 [facility] Glucose [Mass/Vol] 103 mg/dL High 65 - 99 mg/dL [facility] HCO3 [Moles/Vol] 30 mmol/L 21 - 32 mmol/L [facility] Interpretation and review of laboratory results Abnormal [facility] Potassium [Moles/Vol] 3.7 mmol/L 3.5 - 5.1 mmol/L [facility] Sodium [Moles/Vol] 138 mmol/L 135 - 145 mmol/L [facility] Urea nitrogen [Mass/Vol] 10 mg/dL 8 - 25 mg/dL [facility] Urea nitrogen/Creatinine [Mass ratio] 9.7 mg/mg Low [facility] Bone Anaerobic Cultureon Bacteria identified Anaer cx Nom (Unsp spec) No Anaerobic Growth at 5 Days [facility] CBCon 11-16-2020 Erythrocyte distribution width (RBC) [Entitic vol] 15.9 % High 11.6 - 14.8 % [facility] Hematocrit (Bld) [Volume fraction] 35.7 % Low 41 - 53 % [facility] Hemoglobin (Bld) [Mass/Vol] 10.8 g/dL Low 13.5 - 17.5 g/dL [facility] Interpretation and review of laboratory results Abnormal [facility] MCH (RBC) [Entitic mass] 25.5 pg Low 26 - 34 pg [facility] MCHC (RBC) [Mass/Vol] 30.3 g/dL Low 31 - 37 g/dL [facility] MCV (RBC) [Entitic vol] 84.2 fL 80 - 100 fL [facility] Nucleated RBC (Bld) [#/Vol] 0.00 10*3/uL [facility] Nucleated RBC/100 WBC (Bld) [Ratio] 0.0 % [facility] Platelet mean volume (Bld) [Entitic vol] 10.2 fL 9.4 - 12.4 fL [facility] Platelets (Bld) [#/Vol] 658 10*3/uL High [facility] RBC (Bld) [#/Vol] 4.24 10*6/uL Low [facility] WBC (Bld) [#/Vol] 9.26 10*3/uL [facility] Magnesium Levelon 11-16-2020 Interpretation and review of laboratory results Normal [facility] Magnesium [Mass/Vol] 1.8 mg/dL 1.6 - 2 .4 mg/dL [facility] POC Glucoseon 11-16-2020 Glucose [Mass/Vol] 157 mg/dL High 65 - 99 mg/dL [facility] Interpretation and review of laboratory results Abnormal [facility] Glucose [Mass/Vol] 105 mg/dL High 65 - 99 mg/dL [facility] Interpretation and review of laboratory results Abnormal [facility] Glucose [Mass/Vol] 147 mg/dL High 65 - 99 mg/dL [facility] Interpretation and review of laboratory results Abnormal [facility] Glucose [Mass/Vol] 100 mg/dL High 65 - 99 mg/dL [facility] Interpretation and review of laboratory results Abnormal [facility] Sedimentation Rateon 020 ESR (Bld) [Velocity] 113 mm/h [facility] Interpretation and review of laboratory results Abnormal [facility] Basic Metabolic Panelon 10-23 Anion gap [Moles/Vol] 9 mmol/L Low 10 - 2 0 mmol/L [facility] Calcium [Mass/Vol] 8.4 mg/dL 8.4 - 10. 2 mg/dL [facility] Chloride [Moles/Vol] 106 mmol/L 98 - 10 8 mmol/L [facility] Creatinine [Mass/Vol] 0.89 mg/dL 0.50 - 1.30 [facility] GFR/1.73 sq M predicted among non-blacks MDRD (S/P/Bld) [Vol rate/Area] The eGFR should be used for monitoring renal function only and not for medication dosing. [facility] GFR/1.73 sq M.predicted CKD-EPI (S/P/Bld) [Vol rate/Area] 97 >=60 mL/min/1.73 m2 [facility] Glucose [Mass/Vol] 139 mg/dL High 65 - 99 mg/dL [facility] HCO3 [Moles/Vol] 26 mmol/L 21 - 32 mmol/L [facility] Interpretation and review of laboratory results Abnormal [facility] Potassium [Moles/Vol] 3.7 mmol/L 3.5 - 5.1 mmol/L [facility] Sodium [Moles/Vol] 137 mmol/L 135 - 145 mmol/L [facility] Urea nitrogen [Mass/Vol] 14 mg/dL 8 - 25 mg/dL [facility] Urea nitrogen/Creatinine [Mass ratio] 15.7 mg/mg [facility] Bone Aerobic Cultureon 11-15 Bacteria identified Aer cx Nom (Bone) Rare growth Staphylococcus aureus Abnormal [facility] Comment on above: This Staphylococcus aureus is Methicillin SUSCEPTIBLE by PBP2a testing. Beta-lactams like Cefazolin and Nafcillin are superior to Vancomycin for treating mSsa. Interpretation and review of laboratory results Abnormal [facility] Microscopic observation Gram stain Nom (Unsp spec) No Organisms Seen [facility] Microscopic observation Gram stain Nom (Unsp spec) Rare WBC [facility] Microscopic observation Gram stain Nom (Unsp spec) No Epithelial Cells Seen [facility] CBCon 11-15-2020 Erythrocyte distribution width (RBC) [Entitic vol] 15.9 % High 11.6 - 14.8 % [facility] Hematocrit (Bld) [Volume fraction] 34.1 % Low 41 - 53 % [facility] Hemoglobin (Bld) [Mass/Vol] 10.5 g/dL Low 13.5 - 17.5 g/dL [facility] Interpretation and review of laboratory results Abnormal [facility] MCH (RBC) [Entitic mass] 25.9 pg Low 26 - 34 pg [facility] MCHC (RBC) [Mass/Vol] 30.8 g/dL Low 31 - 37 g/dL [facility] MCV (RBC) [Entitic vol] 84.2 fL 80 - 100 fL [facility] Nucleated RBC (Bld) [#/Vol] 0.00 10*3/uL [facility] Nucleated RBC/100 WBC (Bld) [Ratio] 0.0 % [facility] Platelet mean volume (Bld) [Entitic vol] 9.8 fL 9.4 - 12.4 fL [facility] Platelets (Bld) [#/Vol] 633 10*3/uL High [facility] RBC (Bld) [#/Vol] 4.05 10*6/uL Low [facility] WBC (Bld) [#/Vol] 8.97 10*3/uL [facility] CT ABDOMEN PELVIS WITHOUT CO NTRASTon 11-15-2020 CT ABDOMEN PELVIS WITHOUT CONTRAST EXAMINATION: CT ABDOMEN PELVIS WITHOUT CONTRAST - 11/15/2020 COMPARISON: CT angiogram chest from [place] dated 11/05/2020. No prior CT imaging of [...] perinephric fluid collections or ascites. There is vckcsvju-kg-vzldv amount of retained stool in the proximal colon and hooym-ob-zuojfgia amount of retained stool in the distal [...] retained stool in the proximal colon and rvcky-cc-jhgwlvsm amount of retained stool in the distal colon, which could be related to a mild colonic ileus. No evidence of a bowel obstruction. 3. Mild pelvic and inguinal lymphadenopathy that may be reactive. 4. Questionable sludge or gallstones in the gallbladder. No evidence of cholecystitis. 5. Trace pleural effusions and mild atelectasis in both lung bases. [employer] Workstation ID: [id number] Dictated by: ANMA PEÑA on WedNov 15, 2020 2:11:25 PM EST Transcribed by: LUTHER TREJO on WedNov 15, 2020 2:15:19 PM EST Finalized by: AMNA PEÑA on WedNov 15, 2020 2:30:12 PM EST Normal [facility] Comment on above: Order Comment: Injur y/Trauma or Illness?:Illness/Other How long have you had these symptoms (acute/chronic)?:Acute Reason for exam?:non healing wound on top of foot History of cancer?: Surgeries, chemotherapy, or radiation?: Type of Exam?:Initial Additional signs and symptoms?:pain CT Abdomen Pelvis Without Co ntraston 11-15-2020 Interface, Rad In Fu ji [facility] - 11/15/2020 2:32 PM EST EXAMINATION: CT ABDOMEN PELVIS WITHOUT CONTRAST - 11/15/2020 COMPARISON: CT angiogram chest from [place] dated 11/05/2020. No prior CT imaging of [...] perinephric fluid collections or ascites. There is krhdwefu-kp-whies amount of retained stool in the proximal colon and aizmq-wh-bozkfvsm amount of retained stool in the distal [...] retained stool in the proximal colon and hfhfb-um-yugjihhr amount of retained stool in the distal colon, which could be related to a mild colonic ileus. No evidence of a bowel obstruction. 3. Mild pelvic and inguinal lymphadenopathy that may be reactive. 4. Questionable sludge or gallstones in the gallbladder. No evidence of cholecystitis. 5. Trace pleural effusions and mild atelectasis in both lung bases. [employer] Workstation ID: [id number] [facility] EXAMINATION: CT ABDOMEN PELVIS WITHOUT CONTRAST - 11/15/2020 COMPARISON: CT angiogram chest from [place] dated 11/05/2020. No prior CT imaging of [...] perinephric fluid collections or ascites. There is qdcrrbcl-vq-magfp amount of retained stool in the proximal colon and nyajp-me-dqjgxhgu amount of retained stool in the distal [...] in the spine. No suspicious osseous lesions. [facility] 1. Single bilateral punctate nonobstructing renal calculi. No evidence of an obstructive uropathy. 2. Moderate-large amount of retained stool in the proximal colon and gbuof-ts-yzfqexcz amount of retained stool in the distal colon, which could be related to a mild colonic ileus. No evidence of a bowel obstruction. 3. Mild pelvic and inguinal lymphadenopathy that may be reactive. 4. Questionable sludge or gallstones in the gallbladder. No evidence of cholecystitis. 5. Trace pleural effusions and mild atelectasis in both lung bases. [employer] Workstation ID: [id number] [facility] Magnesium Levelon 11-15-2020 Interpretation and review of laboratory results Normal [facility] Magnesium [Mass/Vol] 1.9 mg/dL 1.6 - 2 .4 mg/dL [facility] POC Glucoseon 11-15-2020 Glucose [Mass/Vol] 171 mg/dL High 65 - 99 mg/dL [facility] Interpretation and review of laboratory results Abnormal [facility] Glucose [Mass/Vol] 122 mg/dL High 65 - 99 mg/dL [facility] Interpretation and review of laboratory results Abnormal [facility] Glucose [Mass/Vol] 129 mg/dL High 65 - 99 mg/dL [facility] Interpretation and review of laboratory results Abnormal [facility] Glucose [Mass/Vol] 142 mg/dL High 65 - 99 mg/dL [facility] Interpretation and review of laboratory results Abnormal [facility] XR FOOT LEFT 3+ VIEWS (STAND ZAHRA)on [...] WedNov 15, 2020 7:35:52 PM EST Normal [facility] Comment on above: Order Comment: Injur y/Trauma or Illness?:Illness/Other How long have you had these symptoms (acute/chronic)?:Chronic Reason for exam?:NON HEALING WOND ANTERIOR FOOT History of cancer?: Surgeries, chemotherapy, or radiation?: Type of Exam?:Unknown Additional signs and symptoms?:DIABETES Large ulceration overlying the dorsum of the foot. Degenerative changes. No definite bony erosion or fracture. Workstation ID: [id number] [facility] EXAMINATION: XR FOOT LEFT 3+ VIEWS (STANDARD) [...] fracture. There is a plantar calcaneal spur. [facility] Interface, Rad In Fu ji Speechq - [...] bony erosion or fracture. Workstation ID: [id number] [facility] Basic Metabolic Panelon 10-23 Anion gap [Moles/Vol] 8 mmol/L Low 10 - 2 0 mmol/L [facility] Calcium [Mass/Vol] 7.9 mg/dL Low 8.4 - 10. 2 mg/dL [facility] Chloride [Moles/Vol] 105 mmol/L 98 - 10 8 mmol/L [facility] Creatinine [Mass/Vol] 0.97 mg/dL 0.50 - 1.30 [facility] GFR/1.73 sq M predicted among non-blacks MDRD (S/P/Bld) [Vol rate/Area] The eGFR should be used for monitoring renal function only and not for medication dosing. [facility] GFR/1.73 sq M.predicted CKD-EPI (S/P/Bld) [Vol rate/Area] 88 >=60 mL/min/1.73 m2 [facility] Glucose [Mass/Vol] 153 mg/dL High 65 - 99 mg/dL [facility] HCO3 [Moles/Vol] 26 mmol/L 21 - 32 mmol/L [facility] Interpretation and review of laboratory results Abnormal [facility] Potassium [Moles/Vol] 4.0 mmol/L 3.5 - 5.1 mmol/L [facility] Sodium [Moles/Vol] 135 mmol/L 135 - 145 mmol/L [facility] Urea nitrogen [Mass/Vol] 14 mg/dL 8 - 25 mg/dL [facility] Urea nitrogen/Creatinine [Mass ratio] 14.4 mg/mg [facility] CBCon 11-14-2020 Erythrocyte distribution width (RBC) [Entitic vol] 16.1 % High 11.6 - 14.8 % [facility] Hematocrit (Bld) [Volume fraction] 33.3 % Low 41 - 53 % [facility] Hemoglobin (Bld) [Mass/Vol] 10.0 g/dL Low 13.5 - 17.5 g/dL [facility] Interpretation and review of laboratory results Abnormal [facility] MCH (RBC) [Entitic mass] 25.3 pg Low 26 - 34 pg [facility] MCHC (RBC) [Mass/Vol] 30.0 g/dL Low 31 - 37 g/dL [facility] MCV (RBC) [Entitic vol] 84.1 fL 80 - 100 fL [facility] Nucleated RBC (Bld) [#/Vol] 0.00 10*3/uL [facility] Nucleated RBC/100 WBC (Bld) [Ratio] 0.0 % [facility] Platelet mean volume (Bld) [Entitic vol] 10.4 fL 9.4 - 12.4 fL [facility] Platelets (Bld) [#/Vol] 583 10*3/uL High [facility] RBC (Bld) [#/Vol] 3.96 10*6/uL Low [facility] WBC (Bld) [#/Vol] 10.09 10*3/uL [facility] Magnesium Levelon 11-14-2020 Interpretation and review of laboratory results Normal [facility] Magnesium [Mass/Vol] 1.9 mg/dL 1.6 - 2 .4 mg/dL [facility] POC Glucoseon 11-14-2020 Glucose [Mass/Vol] 160 mg/dL High 65 - 99 mg/dL [facility] Interpretation and review of laboratory results Abnormal [facility] Glucose [Mass/Vol] 151 mg/dL High 65 - 99 mg/dL [facility] Interpretation and review of laboratory results Abnormal [facility] Glucose [Mass/Vol] 142 mg/dL High 65 - 99 mg/dL [facility] Interpretation and review of laboratory results Abnormal [facility] Glucose [Mass/Vol] 138 mg/dL High 65 - 99 mg/dL [facility] Interpretation and review of laboratory results Abnormal [facility] Basic Metabolic Panelon 10-23 Anion gap [Moles/Vol] 8 mmol/L Low 10 - 2 0 mmol/L [facility] Calcium [Mass/Vol] 7.8 mg/dL Low 8.4 - 10. 2 mg/dL [facility] Chloride [Moles/Vol] 105 mmol/L 98 - 10 8 mmol/L [facility] Creatinine [Mass/Vol] 0.85 mg/dL 0.50 - 1.30 [facility] GFR/1.73 sq M predicted among non-blacks MDRD (S/P/Bld) [Vol rate/Area] The eGFR should be used for monitoring renal function only and not for medication dosing. [facility] GFR/1.73 sq M.predicted CKD-EPI (S/P/Bld) [Vol rate/Area] 99 >=60 mL/min/1.73 m2 [facility] Glucose [Mass/Vol] 176 mg/dL High 65 - 99 mg/dL [facility] HCO3 [Moles/Vol] 26 mmol/L 21 - 32 mmol/L [facility] Interpretation and review of laboratory results Abnormal [facility] Potassium [Moles/Vol] 4.0 mmol/L 3.5 - 5.1 mmol/L [facility] Sodium [Moles/Vol] 135 mmol/L 135 - 145 mmol/L [facility] Urea nitrogen [Mass/Vol] 13 mg/dL 8 - 25 mg/dL [facility] Urea nitrogen/Creatinine [Mass ratio] 15.3 mg/mg [facility] CBCon 11-13-2020 Erythrocyte distribution width (RBC) [Entitic vol] 16.0 % High 11.6 - 14.8 % [facility] Hematocrit (Bld) [Volume fraction] 32.7 % Low 41 - 53 % [facility] Hemoglobin (Bld) [Mass/Vol] 10.1 g/dL Low 13.5 - 17.5 g/dL [facility] Interpretation and review of laboratory results Abnormal [facility] MCH (RBC) [Entitic mass] 25.6 pg Low 26 - 34 pg [facility] MCHC (RBC) [Mass/Vol] 30.9 g/dL Low 31 - 37 g/dL [facility] MCV (RBC) [Entitic vol] 82.8 fL 80 - 100 fL [facility] Nucleated RBC (Bld) [#/Vol] 0.00 10*3/uL [facility] Nucleated RBC/100 WBC (Bld) [Ratio] 0.0 % [facility] Platelet mean volume (Bld) [Entitic vol] 10.4 fL 9.4 - 12.4 fL [facility] Platelets (Bld) [#/Vol] 545 10*3/uL High [facility] RBC (Bld) [#/Vol] 3.95 10*6/uL Low [facility] WBC (Bld) [#/Vol] 10.51 10*3/uL [facility] Magnesium Levelon 11-13-2020 Interpretation and review of laboratory results Normal [facility] Magnesium [Mass/Vol] 2.0 mg/dL 1.6 - 2 .4 mg/dL [facility] NM Gastric Emptyingon 2019 Delayed gastric emptying. Workstation ID: [id number] [facility] Interface, Rad In Fu ji [employer] - 11/13/2020 1:36 PM EST EXAMINATION: IN GASTRIC EMPTYING HISTORY: Abdominal discomfort, nausea, vomiting [...] IMPRESSION: Delayed gastric emptying. Workstation ID: [id number] [facility] EXAMINATION: IN GASTRIC EMPTYING HISTORY: Abdominal discomfort, nausea, vomiting [...] 4 HOURS: 17% (normal range = 0-10%). [facility] POC Glucoseon 11-13-2020 Glucose [Mass/Vol] 189 mg/dL High 65 - 99 mg/dL [facility] Interpretation and review of laboratory results Abnormal [facility] Glucose [Mass/Vol] 186 mg/dL High 65 - 99 mg/dL [facility] Interpretation and review of laboratory results Abnormal [facility] Glucose [Mass/Vol] 221 mg/dL High 65 - 99 mg/dL [facility] Interpretation and review of laboratory results Abnormal [facility] Glucose [Mass/Vol] 162 mg/dL High 65 - 99 mg/dL [facility] Interpretation and review of laboratory results Abnormal [facility] TISSUE EXAMon 11-13-2020 Case Report Surgical Pathology Report Case: [id number] Authorizing Provider: Leanne Cherry DPM Collected: 11/11/2020 04:44 PM Ordering Location: [facility] Received: 11/12/2020 09:31 AM Pathologist: Joni Perez DO Specimen: Foot, Left [facility] Pathology report final diagnosis Narrative [id number] Zng3wbu2JdyOMgvRDbMEcd mEFrvkGivc89tGI1aF30XS 8lXOAzHuV8RHIsrqX3Pkz1 LIAnXUNirEDgX128h1wif1 ptaxTizNO9iMdvQJPyXLIk YWluXGJcZnMyMCBBLiAgQm 9uZSBmcmFnbWVudCwgTGVm bEQLb065YFJjgXAwm8niyx srcBNvSHViyjKszZg1JtBp bGluNzIwXGIwIEFjdXRlIG 9anNZrgXksaLl8cTLkDDBq clxwYXJkXHBhcn0= [facility] Pathology report gross observation Narrative i4dhsNVkDIRzzXS3WfKzFS Szj5dog5HdrFCunFOuUSas fTXtrpFoma75vAS6jF84OX 0pYRLcLnS7RGDfjmJ0Piz9 QDEtMKDprOCvL223b4spx5 gvkfNufRF6bEkiLEArDOLs NUuhOQAjMyMoMgVfILz0XQ JhmM0bEa7dmXKweU0yEKPr r7tskrP3YTEzCaNiAe8lvA kpTBSjyMSDl48xRvzqOXCp b4WaI7C6OYKsKXrcu3kbXQ OeUGqvv5QzODuUIQFUPQ9D QB9jkBL5NShGMMLJU3iKvP H1HIWcpUX0OW54PSKoEJDj mKMjVPhtI280dVCyQOqpMj dgbYX2MPbeNfiqnZ7uaZJW TZWNFesYCprvjeKzPT6TOH BQPC0QpDK0PGWifKU4DD77 TRKyWDSmdWHsHVgeE834XQ BsYWluXGZzMjAgIGZyYWdt XF15GLCaET5eJGIwqkPzbV Hpm5CytH5zZZSvIEF1JCSj IvU0RNIeDyIzvIqkck49MY P7d9kmdNYwXFryTmyjeXPm kaR6GSgFSSQVMQkNHrIaGE 8eOAgXY3VTSZjBYomfTWL9 T5pmhSN9w2uefNAzp4u2CV ytXNL4hJ86AHKuEGwhu1ih NAOyXTsig4HpMTpQXZLRQD 6EGW4otCD5ZXeFBDOHFWzq CZO1M6yakFW7x7thiPOde8 c8ALexZVW4rBnrrOHkbzsb lbUtTYUqV3ExtMn0jQEcYA ZvciBkZWNhbGNpZmljYXRp j21oNSCJb0MuwOm7JKI3Lt 9gsNJlLQDgccZiWCGwg5Sq dHRlKHMpLlxwYXJccGFyZF otKPNeO0XtwVCcIJxhi0Yg QUG6JT7wywE6sG7jOEVhjo Gtap8mTTXnqLroCMHey3Yz OFrxXAiuo0UudYHjJG7qKp R8CAqvKGMiqpOwURQ1SB68 BDQMXI3rZwmfnBCiPR4VUB L7QESyHQbeLUUcdOPpCLVx H72RWkQWAKGSX79JGEBMJI YSW8IQR1dDHUY1MJHxpNQ7 KC3qFXM3S4ynYJZcO63EWu DMXPSFK62ZKWLGUARRI2RB OGOWRXsRE4CKDB9PALJELT LQTM4MUIzYSgNGZTbJR7QG BI5EBQZGWHQDBE7ZCnCbBO iKU8YWZ5zHNCPeCCBNEOIU PQRfFyTHIG2hGUq4YGYhcI 7iOSUcMQZ5KaAmNGZ8Qdsu BL5xWJtFDJBnmgHaK6ikLA miwME7CcMtRBM4HyewOG9l KWpCC0OFN2xMJOWxWCADPV JJUKElOF8WZVjYKQ2YUXQl MXRCWTVVYGVeNnMNBV0dFC xAQC9WQINyQLTBAQSLJFSc JQ1MLNRHUQ8FCHPKIDNUR7 4FDKMKISEDD1GSL3rESVAX GMLQAjAPEjMJEV3EUVJGRO GZIC4WNfP2 [facility] Pathology report microscopic observation Narrative Other stain t9zrjEDsFMXmfIUpReZaJM XnJYPrg8upUODopUOzNgDh MzNcZnRuYmpcdWMxXGRlZm Vae8vwq053oUDsg7rbGQKy CjP5bDXwDPPbhKWvY150BO PwTDmis3ywx1CjZTChlDAo o0A4ETEQdfdcwSo9nVpiT8 9ve0M3VcmlA6sdYQLtSGJr V0JuUV6aWZZbMco8ZPL3AT Z9KHPtLCMiY5EvRV9rNKXp rPJlXLv5r4mlsScpCOTzNE I2u4ulGVuigjMwLC3lay0q rKp2x8mumtFbPCKiIUDaiT UCKAJiJ8FsaSbuSi0rcVq6 sKbmOckwXDR3Eiz3PB1zvp 01nxf9bEuzSXOymkqmNcT6 CBqkKEJjxekkKIe7LTqvIP AexKB8NGHttMYmZ2QsZRZj YN4uztx6KZV3VAwrNIAnZu R7FKFmjSKcZVHufNixGSfr v447JCC2TqHcWQ6jP0Yht9 G4eL6gkQCwNGCudBNdLhWw URSszw1rbNUlUIiuv7XdKC B2daA3rFFwpCQjNBLyKO50 Bortb8XnWiviWBY5UAJcsm Yly6Mjg4rmQtJrpcAfV2yr Z7VqUENpTLRzMVNkAkMlcx Wwc6Djl1DunOJpbRh1c1bp SKSnBLEplLeak7quMMM6BA QaZ7F5aUWog6eiJTjoSYOe wTZ9puT1PXGrlEYlP5RoyR 0sUAYsKN5tflk1a0baNZM5 GAdcSRBxMeP8phP2UYBsqU UkLULeaIlbTPqia249XXI9 PeNhSBNea1YhG2ZyvVzwT9 1vgPluP37pERPbaVuluA2o eMtnfT4oDhPtZuCgQWwsxF xwbGFpblxmMVxmczIwXGxh whmyZTYqRUgdC0xtGhVqEZ QgdXbaFMdkp0HpUQBxXUZx LzShRSrryd9yI37jcMCtTZ rjjLubVRQbw80yfJGuhGSv Fg5ynZEyYunfJMA6 [facility] US DOPPLER SEGMENTAL ARTERIA L LEGS BILATERALon 11-13-2020 US DOPPLER SEGMENTAL ARTERIAL LEGS BILATERAL Patient Info Name: MORE KINGSLEY Age: 55 years : 1965 Gender: Male Exam Date: 11/13/2020 8:13 AM Patient Status: Inpatient Director Of Rehabilitation: Rafat Tony RVT Indications I73.9 - Peripheral vascular disease, unspecified Procedure Description 69031 Complete bilateral noninvasive physiologic studies of upper [...] Gutiérrez DO on 11/13/2020 03:26 PM Normal [facility] Interface, Rad In [facility] Xper Echopacs - 11/13/2020 3:27 PM EST Patient Info Name: MORE KINGSLEY Age: 55 years : 1965 Gender: Male Exam Date: 11/13/2020 8:13 AM Patient Status: Inpatient Director Of Rehabilitation: Rafat Tony RVT Indications I73.9 - Peripheral vascular disease, unspecified Procedure Description 10931 Complete bilateral noninvasive physiologic studies of upper [...] ABILIO Gutiérrez DO on 11/13/2020 03:26 PM [facility] Patient Info Name: MORE KINGSLEY Age: 55 years : 1965 Gender: Male Exam Date: 11/13/2020 8:13 AM Patient Status: Inpatient Director Of Rehabilitation: Rafat Tony RVT Indications I73.9 - Peripheral vascular disease, unspecified Procedure Description 69693 Complete bilateral noninvasive physiologic studies of upper [...] ABILIO Gutiérrez DO on 11/13/2020 03:26 PM [facility] Basic Metabolic Panelon 12-2 Anion gap [Moles/Vol] 10 mmol/L 10 - 2 0 mmol/L [facility] Calcium [Mass/Vol] 8.0 mg/dL Low 8.4 - 10. 2 mg/dL [facility] Chloride [Moles/Vol] 104 mmol/L 98 - 10 8 mmol/L [facility] Creatinine [Mass/Vol] 0.84 mg/dL 0.50 - 1.30 [facility] GFR/1.73 sq M predicted among non-blacks MDRD (S/P/Bld) [Vol rate/Area] The eGFR should be used for monitoring renal function only and not for medication dosing. [facility] GFR/1.73 sq M.predicted CKD-EPI (S/P/Bld) [Vol rate/Area] 99 >=60 mL/min/1.73 m2 [facility] Glucose [Mass/Vol] 86 mg/dL 65 - 99 mg/dL [facility] HCO3 [Moles/Vol] 25 mmol/L 21 - 32 mmol/L [facility] Interpretation and review of laboratory results Abnormal [facility] Potassium [Moles/Vol] 4.1 mmol/L 3.5 - 5.1 mmol/L [facility] Sodium [Moles/Vol] 135 mmol/L 135 - 145 mmol/L [facility] Urea nitrogen [Mass/Vol] 10 mg/dL 8 - 25 mg/dL [facility] Urea nitrogen/Creatinine [Mass ratio] 11.9 mg/mg [facility] CBCon 11-12-2020 Erythrocyte distribution width (RBC) [Entitic vol] 16.4 % High 11.6 - 14.8 % [facility] Hematocrit (Bld) [Volume fraction] 32.7 % Low 41 - 53 % [facility] Hemoglobin (Bld) [Mass/Vol] 10.1 g/dL Low 13.5 - 17.5 g/dL [facility] Interpretation and review of laboratory results Abnormal [facility] MCH (RBC) [Entitic mass] 25.7 pg Low 26 - 34 pg [facility] MCHC (RBC) [Mass/Vol] 30.9 g/dL Low 31 - 37 g/dL [facility] MCV (RBC) [Entitic vol] 83.2 fL 80 - 100 fL [facility] Nucleated RBC (Bld) [#/Vol] 0.00 10*3/uL [facility] Nucleated RBC/100 WBC (Bld) [Ratio] 0.0 % [facility] Platelet mean volume (Bld) [Entitic vol] 10.4 fL 9.4 - 12.4 fL [facility] Platelets (Bld) [#/Vol] 497 10*3/uL High [facility] RBC (Bld) [#/Vol] 3.93 10*6/uL Low [facility] WBC (Bld) [#/Vol] 13.36 10*3/uL High [facility] COVID-19/INFLUENZA A,B MOLEC ULARon 11-12-2020 COVID-19/INFLUENZA A,B MOLECULAR SARS-COV-2 (JESSIKA): Not Detected INFLUENZA A (JESSIKA): Not Detected INFLUENZA B (JESSIKA): Not Detected Normal Not Detected [facility] Comment on above: Order Comment: This test [...] at the following links: For Healthcare Providers: https://www.fda.gov/media/705457/download For Patients: https://www.fda.gov/media/989624/download Performed By: #### L [id number] #### [facility] [address] [address] Warren Barnett M.D. [id number] COVID-19/Influenza A,B Molec aro 11-12-2020 Influenza A Not Detected Not Detected [facility] Influenza B Not Detected Not Detected [facility] Interpretation and review of laboratory results Normal [facility] SARS-CoV-2 Not Detected Not Detected [facility] This test was performed under the FDA's [...] at the following links: For Healthcare Providers: https://www.fda.gov/me yoon/725679/download For Patients: https://www.fda.gov/pa yoon/699440/download [facility] Magnesium Levelon 11-12-2020 Interpretation and review of laboratory results Normal [facility] Magnesium [Mass/Vol] 1.8 mg/dL 1.6 - 2 .4 mg/dL [facility] NM GASTRIC EMPTYINGon 2019 NM GASTRIC EMPTYING EXAMINATION: IN GASTRIC EMPTYING HISTORY: Abdominal discomfort, nausea, vomiting [...] WedNov 13, 2020 1:34:26 PM EST Normal [facility] Comment on above: Order Comment: Injur y/Trauma or Illness?:Illness/Other How long have you had these symptoms (acute/chronic)?:Chronic a few years now Reason for exam?:Recurrent nausea and vomiting and abdominal discomfort uncontrolled diabetes Type of Exam?:Ongoing Additional signs and symptoms?:nausea and vomiting almost daily for a few years now, POC Glucoseon 11-12-2020 Glucose [Mass/Vol] 159 mg/dL High 65 - 99 mg/dL [facility] Interpretation and review of laboratory results Abnormal [facility] Glucose [Mass/Vol] 161 mg/dL High 65 - 99 mg/dL [facility] Interpretation and review of laboratory results Abnormal [facility] Glucose [Mass/Vol] 153 mg/dL High 65 - 99 mg/dL [facility] Interpretation and review of laboratory results Abnormal [facility] Glucose [Mass/Vol] 71 mg/dL 65 - 99 mg/dL [facility] Interpretation and review of laboratory results Normal [facility] Basic Metabolic Panelon 10-23 Anion gap [Moles/Vol] 9 mmol/L Low 10 - 2 0 mmol/L [facility] Calcium [Mass/Vol] 8.1 mg/dL Low 8.4 - 10. 2 mg/dL [facility] Chloride [Moles/Vol] 106 mmol/L 98 - 10 8 mmol/L [facility] Creatinine [Mass/Vol] 1.00 mg/dL 0.50 - 1.30 [facility] GFR/1.73 sq M predicted among non-blacks MDRD (S/P/Bld) [Vol rate/Area] The eGFR should be used for monitoring renal function only and not for medication dosing. [facility] GFR/1.73 sq M.predicted CKD-EPI (S/P/Bld) [Vol rate/Area] 85 >=60 mL/min/1.73 m2 [facility] Glucose [Mass/Vol] 108 mg/dL High 65 - 99 mg/dL [facility] HCO3 [Moles/Vol] 26 mmol/L 21 - 32 mmol/L [facility] Interpretation and review of laboratory results Abnormal [facility] Potassium [Moles/Vol] 4.0 mmol/L 3.5 - 5.1 mmol/L [facility] Sodium [Moles/Vol] 137 mmol/L 135 - 145 mmol/L [facility] Urea nitrogen [Mass/Vol] 8 mg/dL 8 - 25 mg/dL [facility] Urea nitrogen/Creatinine [Mass ratio] 8.0 mg/mg Low [facility] CBCon 11-11-2020 Erythrocyte distribution width (RBC) [Entitic vol] 16.2 % High 11.6 - 14.8 % [facility] Hematocrit (Bld) [Volume fraction] 36.2 % Low 41 - 53 % [facility] Hemoglobin (Bld) [Mass/Vol] 11.2 g/dL Low 13.5 - 17.5 g/dL [facility] Interpretation and review of laboratory results Abnormal [facility] MCH (RBC) [Entitic mass] 25.7 pg Low 26 - 34 pg [facility] MCHC (RBC) [Mass/Vol] 30.9 g/dL Low 31 - 37 g/dL [facility] MCV (RBC) [Entitic vol] 83.0 fL 80 - 100 fL [facility] Nucleated RBC (Bld) [#/Vol] 0.00 10*3/uL [facility] Nucleated RBC/100 WBC (Bld) [Ratio] 0.0 % [facility] Platelet mean volume (Bld) [Entitic vol] 10.6 fL 9.4 - 12.4 fL [facility] Platelets (Bld) [#/Vol] 511 10*3/uL High [facility] RBC (Bld) [#/Vol] 4.36 10*6/uL Low [facility] WBC (Bld) [#/Vol] 11.96 10*3/uL High [facility] Magnesium Levelon 11-11-2020 Interpretation and review of laboratory results Normal [facility] Magnesium [Mass/Vol] 1.7 mg/dL 1.6 - 2 .4 mg/dL [facility] Interpretation and review of laboratory results Normal [facility] Magnesium [Mass/Vol] 1.8 mg/dL 1.6 - 2 .4 mg/dL [facility] POC Glucoseon 11-11-2020 Glucose [Mass/Vol] 104 mg/dL High 65 - 99 mg/dL [facility] Interpretation and review of laboratory results Abnormal [facility] Glucose [Mass/Vol] 86 mg/dL 65 - 99 mg/dL [facility] Interpretation and review of laboratory results Normal [facility] Glucose [Mass/Vol] 106 mg/dL High 65 - 99 mg/dL [facility] Interpretation and review of laboratory results Abnormal [facility] Glucose [Mass/Vol] 115 mg/dL High 65 - 99 mg/dL [facility] Interpretation and review of laboratory results Abnormal [facility] Basic Metabolic Panelon 10-23 Anion gap [Moles/Vol] 9 mmol/L Low 10 - 2 0 mmol/L [facility] Calcium [Mass/Vol] 7.9 mg/dL Low 8.4 - 10. 2 mg/dL [facility] Chloride [Moles/Vol] 104 mmol/L 98 - 10 8 mmol/L [facility] Creatinine [Mass/Vol] 0.94 mg/dL 0.50 - 1.30 [facility] GFR/1.73 sq M predicted among non-blacks MDRD (S/P/Bld) [Vol rate/Area] The eGFR should be used for monitoring renal function only and not for medication dosing. [facility] GFR/1.73 sq M.predicted CKD-EPI (S/P/Bld) [Vol rate/Area] 92 >=60 mL/min/1.73 m2 [facility] Glucose [Mass/Vol] 151 mg/dL High 65 - 99 mg/dL [facility] HCO3 [Moles/Vol] 26 mmol/L 21 - 32 mmol/L [facility] Interpretation and review of laboratory results Abnormal [facility] Potassium [Moles/Vol] 3.4 mmol/L Low 3.5 - 5.1 mmol/L [facility] Sodium [Moles/Vol] 136 mmol/L 135 - 145 mmol/L [facility] Urea nitrogen [Mass/Vol] 8 mg/dL 8 - 25 mg/dL [facility] Urea nitrogen/Creatinine [Mass ratio] 8.5 mg/mg Low [facility] CBCon 2020 Erythrocyte distribution width (RBC) [Entitic vol] 16.4 % High 11.6 - 14.8 % [facility] Hematocrit (Bld) [Volume fraction] 36.2 % Low 41 - 53 % [facility] Hemoglobin (Bld) [Mass/Vol] 11.4 g/dL Low 13.5 - 17.5 g/dL [facility] Interpretation and review of laboratory results Abnormal [facility] MCH (RBC) [Entitic mass] 26.5 pg 26 - 34 pg [facility] MCHC (RBC) [Mass/Vol] 31.5 g/dL 31 - 37 g/dL [facility] MCV (RBC) [Entitic vol] 84.2 fL 80 - 100 fL [facility] Nucleated RBC (Bld) [#/Vol] 0.00 10*3/uL [facility] Nucleated RBC/100 WBC (Bld) [Ratio] 0.0 % [facility] Platelet mean volume (Bld) [Entitic vol] 11.0 fL 9.4 - 12.4 fL [facility] Platelets (Bld) [#/Vol] 411 10*3/uL High [facility] RBC (Bld) [#/Vol] 4.30 10*6/uL Low [facility] WBC (Bld) [#/Vol] 12.21 10*3/uL [facility] Imm/Pathon 2020 Bacteria identified Cx Nom (Bld) No Growth After 5 Days [facility] Magnesium Levelon 2020 Interpretation and review of laboratory results Normal [facility] Magnesium [Mass/Vol] 1.9 mg/dL 1.6 - 2 .4 mg/dL [facility] POC Glucoseon 2020 Glucose [Mass/Vol] 136 mg/dL High 65 - 99 mg/dL [facility] Interpretation and review of laboratory results Abnormal [facility] Glucose [Mass/Vol] 137 mg/dL High 65 - 99 mg/dL [facility] Interpretation and review of laboratory results Abnormal [facility] Glucose [Mass/Vol] 151 mg/dL High 65 - 99 mg/dL [facility] Interpretation and review of laboratory results Abnormal [facility] Glucose [Mass/Vol] 167 mg/dL High 65 - 99 mg/dL [facility] Interpretation and review of laboratory results Abnormal [facility] Glucose [Mass/Vol] 154 mg/dL High 65 - 99 mg/dL [facility] Interpretation and review of laboratory results Abnormal [facility] Glucose [Mass/Vol] 58 mg/dL Low 65 - 99 mg/dL [facility] Interpretation and review of laboratory results Abnormal [facility] Basic Metabolic Panelon 10-22 Anion gap [Moles/Vol] 11 mmol/L 10 - 2 0 mmol/L [facility] Calcium [Mass/Vol] 7.6 mg/dL Low 8.4 - 10. 2 mg/dL [facility] Chloride [Moles/Vol] 103 mmol/L 98 - 10 8 mmol/L [facility] Creatinine [Mass/Vol] 0.84 mg/dL 0.50 - 1.30 [facility] GFR/1.73 sq M predicted among non-blacks MDRD (S/P/Bld) [Vol rate/Area] The eGFR should be used for monitoring renal function only and not for medication dosing. [facility] GFR/1.73 sq M.predicted CKD-EPI (S/P/Bld) [Vol rate/Area] 100 >=60 mL/min/1.73 m2 [facility] Glucose [Mass/Vol] 85 mg/dL 65 - 99 mg/dL [facility] HCO3 [Moles/Vol] 24 mmol/L 21 - 32 mmol/L [facility] Interpretation and review of laboratory results Abnormal [facility] Potassium [Moles/Vol] 3.1 mmol/L Low 3.5 - 5.1 mmol/L [facility] Sodium [Moles/Vol] 135 mmol/L 135 - 145 mmol/L [facility] Urea nitrogen [Mass/Vol] 10 mg/dL 8 - 25 mg/dL [facility] Urea nitrogen/Creatinine [Mass ratio] 11.9 mg/mg [facility] CBCon 11-09-2020 Erythrocyte distribution width (RBC) [Entitic vol] 16.2 % High 11.6 - 14.8 % [facility] Hematocrit (Bld) [Volume fraction] 35.8 % Low 41 - 53 % [facility] Hemoglobin (Bld) [Mass/Vol] 11.2 g/dL Low 13.5 - 17.5 g/dL [facility] Interpretation and review of laboratory results Abnormal [facility] MCH (RBC) [Entitic mass] 25.9 pg Low 26 - 34 pg [facility] MCHC (RBC) [Mass/Vol] 31.3 g/dL 31 - 37 g/dL [facility] MCV (RBC) [Entitic vol] 82.9 fL 80 - 100 fL [facility] Nucleated RBC (Bld) [#/Vol] 0.00 10*3/uL [facility] Nucleated RBC/100 WBC (Bld) [Ratio] 0.0 % [facility] Platelet mean volume (Bld) [Entitic vol] 11.1 fL 9.4 - 12.4 fL [facility] Platelets (Bld) [#/Vol] 337 10*3/uL [facility] RBC (Bld) [#/Vol] 4.32 10*6/uL Low [facility] WBC (Bld) [#/Vol] 11.42 10*3/uL High [facility] Magnesium Levelon 11-09-2020 Interpretation and review of laboratory results Normal [facility] Magnesium [Mass/Vol] 1.7 mg/dL 1.6 - 2 .4 mg/dL [facility] POC Glucoseon 11-09-2020 Glucose [Mass/Vol] 112 mg/dL High 65 - 99 mg/dL [facility] Interpretation and review of laboratory results Abnormal [facility] Glucose [Mass/Vol] 82 mg/dL 65 - 99 mg/dL [facility] Interpretation and review of laboratory results Normal [facility] Glucose [Mass/Vol] 81 mg/dL 65 - 99 mg/dL [facility] Interpretation and review of laboratory results Normal [facility] Glucose [Mass/Vol] 88 mg/dL 65 - 99 mg/dL [facility] Interpretation and review of laboratory results Normal [facility] Glucose [Mass/Vol] 96 mg/dL 65 - 99 mg/dL [facility] Interpretation and review of laboratory results Normal [facility] Glucose [Mass/Vol] 88 mg/dL 65 - 99 mg/dL [facility] Interpretation and review of laboratory results Normal [facility] Glucose [Mass/Vol] 61 mg/dL Low 65 - 99 mg/dL [facility] Interpretation and review of laboratory results Abnormal [facility] Urine Aerobic Cultureon 10-22 Bacteria identified Aer cx Nom (Unsp spec) No Growth (<1,000 CFU/mL) [facility] WOUND AEROBIC CULTUREon 10-22 Bacteria identified Aer cx Nom (Wound) Light Growth Staphylococcus aureus Abnormal [facility] Comment on above: See susceptibility f rom same source/different date: 11/06/2020 Interpretation and review of laboratory results Abnormal [facility] Microscopic observation Gram stain Nom (Wound) Positive [facility] Microscopic observation Gram stain Nom (Wound) Many WBC [facility] Microscopic observation Gram stain Nom (Wound) No Epithelial Cells Seen [facility] Basic Metabolic Panelon 10-22 Anion gap [Moles/Vol] 9 mmol/L Low 10 - 2 0 mmol/L [facility] Calcium [Mass/Vol] 7.8 mg/dL Low 8.4 - 10. 2 mg/dL [facility] Chloride [Moles/Vol] 104 mmol/L 98 - 10 8 mmol/L [facility] Creatinine [Mass/Vol] 0.98 mg/dL 0.50 - 1.30 [facility] GFR/1.73 sq M predicted among non-blacks MDRD (S/P/Bld) [Vol rate/Area] The eGFR should be used for monitoring renal function only and not for medication dosing. [facility] GFR/1.73 sq M.predicted CKD-EPI (S/P/Bld) [Vol rate/Area] 88 >=60 mL/min/1.73 m2 [facility] Glucose [Mass/Vol] 136 mg/dL High 65 - 99 mg/dL [facility] HCO3 [Moles/Vol] 25 mmol/L 21 - 32 mmol/L [facility] Interpretation and review of laboratory results Abnormal [facility] Potassium [Moles/Vol] 3.4 mmol/L Low 3.5 - 5.1 mmol/L [facility] Sodium [Moles/Vol] 135 mmol/L 135 - 145 mmol/L [facility] Urea nitrogen [Mass/Vol] 14 mg/dL 8 - 25 mg/dL [facility] Urea nitrogen/Creatinine [Mass ratio] 14.3 mg/mg [facility] Otheron 11-08-2020 Bacteria identified Aer cx Nom (Wound) Moderate Growth Staphylococcus aureus Abnormal [facility] Comment on above: This Staphylococcus aureus is Methicillin SUSCEPTIBLE by PBP2a testing. Beta-lactams like Cefazolin and Nafcillin are superior to Vancomycin for treating mSsa. Interpretation and review of laboratory results Abnormal [facility] Microscopic observation Gram stain Nom (Wound) No Epithelial Cells Seen [facility] POC Glucoseon 11-08-2020 Glucose [Mass/Vol] 105 mg/dL High 65 - 99 mg/dL [facility] Interpretation and review of laboratory results Abnormal [facility] Glucose [Mass/Vol] 98 mg/dL 65 - 99 mg/dL [facility] Interpretation and review of laboratory results Normal [facility] Glucose [Mass/Vol] 109 mg/dL High 65 - 99 mg/dL [facility] Interpretation and review of laboratory results Abnormal [facility] Glucose [Mass/Vol] 107 mg/dL High 65 - 99 mg/dL [facility] Interpretation and review of laboratory results Abnormal [facility] WOUND AEROBIC CULTUREon 10-22 Bacteria identified Aer cx Nom (Wound) Moderate Growth Streptococcus agalactiae (Group B) Abnormal [facility] Microscopic observation Gram stain Nom (Wound) Positive [facility] Microscopic observation Gram stain Nom (Wound) No Organisms Seen [facility] Microscopic observation Gram stain Nom (Wound) Few WBC [facility] Microscopic observation Gram stain Nom (Wound) Rare WBC [facility] See susceptibility from same source/same date. [facility] CBC WITH AUTO DIFFERENTIALon 11-07-2020 Basophils (Bld) [#/Vol] 0.09 10*3/uL [facility] Basophils/100 WBC (Bld) 0.7 % [facility] Eosinophils (Bld) [#/Vol] 0.22 10*3/uL [facility] Eosinophils/100 WBC (Bld) 1.8 % [facility] Erythrocyte distribution width (RBC) [Entitic vol] 15.9 % High 11.6 - 14.8 % [facility] Hematocrit (Bld) [Volume fraction] 35.6 % Low 41 - 53 % [facility] Hemoglobin (Bld) [Mass/Vol] 11.2 g/dL Low 13.5 - 17.5 g/dL [facility] Immature granulocytes (Bld) [#/Vol] 0.20 10*3/uL [facility] Immature granulocytes/100 WBC (Bld) 1.70 % [facility] Comment on above: The IG parameter is the percentage of metamyelocytes, myelocytes and promyelocytes. An immature granulocyte count (IG) of 1% or more suggests the possibility of infection, an IG count of 3% is very likely related to an infection. Interpretation and review of laboratory results Abnormal [facility] Lymphocytes (Bld) [#/Vol] 1.29 10*3/uL [facility] Lymphocytes/100 WBC (Bld) 10.7 % [facility] MCH (RBC) [Entitic mass] 26.4 pg 26 - 34 pg [facility] MCHC (RBC) [Mass/Vol] 31.5 g/dL 31 - 37 g/dL [facility] MCV (RBC) [Entitic vol] 83.8 fL 80 - 100 fL [facility] Monocytes (Bld) [#/Vol] 1.22 10*3/uL High [facility] Monocytes/100 WBC (Bld) 10.1 % [facility] Neutrophils (Bld) [#/Vol] 9.01 10*3/uL High [facility] Neutrophils/100 WBC (Bld) 75.0 % [facility] Nucleated RBC (Bld) [#/Vol] 0.00 10*3/uL [facility] Nucleated RBC/100 WBC (Bld) [Ratio] 0.0 % [facility] Platelet mean volume (Bld) [Entitic vol] 11.1 fL 9.4 - 12.4 fL [facility] Platelets (Bld) [#/Vol] 282 10*3/uL [facility] RBC (Bld) [#/Vol] 4.25 10*6/uL Low [facility] WBC (Bld) [#/Vol] 12.03 10*3/uL High [facility] POC Glucoseon 11-07-2020 Glucose [Mass/Vol] 178 mg/dL High 65 - 99 mg/dL [facility] Interpretation and review of laboratory results Abnormal [facility] Glucose [Mass/Vol] 205 mg/dL High 65 - 99 mg/dL [facility] Interpretation and review of laboratory results Abnormal [facility] Glucose [Mass/Vol] 221 mg/dL High 65 - 99 mg/dL [facility] Interpretation and review of laboratory results Abnormal [facility] Glucose [Mass/Vol] 206 mg/dL High 65 - 99 mg/dL [facility] Interpretation and review of laboratory results Abnormal [facility] Glucose [Mass/Vol] 209 mg/dL High 65 - 99 mg/dL [facility] Interpretation and review of laboratory results Abnormal [facility] C3 COMPLEMENTon 11-06-2020 Complement C3 [Mass/Vol] 151.9 mg/dL 73 - 183 mg/dL [facility] C4 COMPLEMENTon 11-06-2020 Complement C4 [Mass/Vol] 21.6 mg/dL 16 - 47 mg/dL [facility] CBC WITH AUTO DIFFERENTIALon 11-06-2020 Basophils (Bld) [#/Vol] 0.07 10*3/uL [facility] Basophils/100 WBC (Bld) 0.5 % [facility] Eosinophils (Bld) [#/Vol] 0.05 10*3/uL [facility] Eosinophils/100 WBC (Bld) 0.3 % [facility] Erythrocyte distribution width (RBC) [Entitic vol] 15.4 % High 11.6 - 14.8 % [facility] Hematocrit (Bld) [Volume fraction] 34.1 % Low 41 - 53 % [facility] Hemoglobin (Bld) [Mass/Vol] 10.8 g/dL Low 13.5 - 17.5 g/dL [facility] Immature granulocytes (Bld) [#/Vol] 0.14 10*3/uL [facility] Immature granulocytes/100 WBC (Bld) 0.90 % [facility] Comment on above: The IG parameter is the percentage of metamyelocytes, myelocytes and promyelocytes. An immature granulocyte count (IG) of 1% or more suggests the possibility of infection, an IG count of 3% is very likely related to an infection. Interpretation and review of laboratory results Abnormal [facility] Lymphocytes (Bld) [#/Vol] 1.06 10*3/uL [facility] Lymphocytes/100 WBC (Bld) 6.9 % [facility] MCH (RBC) [Entitic mass] 26.2 pg 26 - 34 pg [facility] MCHC (RBC) [Mass/Vol] 31.7 g/dL 31 - 37 g/dL [facility] MCV (RBC) [Entitic vol] 82.6 fL 80 - 100 fL [facility] Monocytes (Bld) [#/Vol] 1.56 10*3/uL High [facility] Monocytes/100 WBC (Bld) 10.2 % [facility] Neutrophils (Bld) [#/Vol] 12.39 10*3/uL High [facility] Neutrophils/100 WBC (Bld) 81.2 % [facility] Nucleated RBC (Bld) [#/Vol] 0.00 10*3/uL [facility] Nucleated RBC/100 WBC (Bld) [Ratio] 0.0 % [facility] Platelet mean volume (Bld) [Entitic vol] 11.2 fL 9.4 - 12.4 fL [facility] Platelets (Bld) [#/Vol] 248 10*3/uL [facility] RBC (Bld) [#/Vol] 4.13 10*6/uL Low [facility] WBC (Bld) [#/Vol] 15.27 10*3/uL High [facility] CT COMPARISON IMPORTon 11-06 This order has been auto-finalized and does not contain a result. [facility] Hemoglobin A1con 11-06-2020 Average glucose Estimated from glycated hemoglobin mass conc (Bld) 189 mg/dL High 68 - 114 mg/dL [facility] HbA1c (Bld) [Mass fraction] 8.2 % High 4 - 5.6 % [facility] Interpretation and review of laboratory results Abnormal [facility] Normal: 4.0% - 5.6% Increased risk for diabetes: 5.7% - 6.4% Diabetes: >= 6.5% Pediatrics: No established reference range Estimated average glucose: 68-114 mg/dL [facility] Lactic Acid, Plasmaon 2019 Interpretation and review of laboratory results Abnormal [facility] Lactate [Moles/Vol] 2.3 mmol/L High 0.6 - 2 mmol/L [facility] MR Foot Left With And Withou t Contraston 11-06-2020 Interface, Rad In [employer] Speech[employer] - 11/06/2020 9:29 PM EST [...] No tendon tear or tenosynovitis is seen. [employer] Workstation ID: [id number] [facility] EXAMINATION: MR FOOT LEFT WITH AND WITHOUT [...] muscles presumably related to chronic diabetic neuropathy. [facility] 1. Abnormal appearan ce of the midfoot [...] tenosynovitis is seen. MPH/mkv Workstation ID: [id number] [facility] MR Foot Right With And Witho ut [...] dome osteochondral lesion is seen. There is wlrr-dt-gwkscsfl mid and hindfoot osteoarthritis with scattered marginal [...] 3. No MR signs of osteomyelitis. 4. Eutf-ty-xoulbiwc mid/hindfoot osteoarthritis. 5. Remote sprains of the ATFL and deep fibers of the deltoid ligament, as above. [employer] Workstation ID: [id number] [facility] EXAMINATION: MR FOOT RIGHT WITH AND WITHOUT [...] dome osteochondral lesion is seen. There is zebf-ji-ljtkfmbq mid and hindfoot osteoarthritis with scattered marginal [...] cm in transverse dimension. No associated abscess. [facility] 1. Prior forefoot resection. Cellulitis of the surgical stump is seen associated with small ulceration. 2. No abscess. 3. No MR signs of osteomyelitis. 4. Rzrc-hd-xvixqukv mid/hindfoot osteoarthritis. 5. Remote sprains of the ATFL and deep fibers of the deltoid ligament, as above. [employer] Workstation ID: [id number] [facility] Magnesiumon 11-06-2020 Magnesium [Mass/Vol] 1.9 mg/dL 1.6 - 2 .4 mg/dL [facility] Otheron 11-06-2020 Interpretation and review of laboratory results Normal [facility] EXAMINATION: XR FOOT RIGHT 3+ VIEWS (STANDARD); [...] LEFT: BONES: No acute fracture or dislocation. Fdhn-ko-vbdvfqbl degenerative changes throughout the foot. Severe degenerative changes the 1st metatarsophalangeal joint with bony remodeling, bvrn-rh-cafo articulation and marginal osteophyte formation. Enthesopathic spurring of the calcaneus. SOFT TISSUES: Moderate soft tissue swelling EFFUSION: None visible. OTHER: Negative. [facility] No definite plain fi lm evidence of osteomyelitis in the right or left foot Workstation ID: [id number] [facility] Interface, Rad In Fu ji Speechq - [...] LEFT: BONES: No acute fracture or dislocation. Yjvz-zq-hailjevo degenerative changes throughout the foot. Severe degenerative changes the 1st metatarsophalangeal joint with bony remodeling, mbtq-fi-edwq articulation and marginal osteophyte formation. Enthesopathic spurring of the calcaneus. SOFT TISSUES: Moderate soft tissue swelling EFFUSION: None visible. OTHER: Negative. IMPRESSION: No definite plain film evidence of osteomyelitis in the right or left foot Workstation ID: [id number] [facility] Interpretation and review of laboratory results Normal [facility] POC Glucoseon 11-06-2020 Glucose [Mass/Vol] 327 mg/dL High 65 - 99 mg/dL [facility] Interpretation and review of laboratory results Abnormal [facility] Glucose [Mass/Vol] 301 mg/dL High 65 - 99 mg/dL [facility] Interpretation and review of laboratory results Abnormal [facility] Glucose [Mass/Vol] 272 mg/dL High 65 - 99 mg/dL [facility] Interpretation and review of laboratory results Abnormal [facility] Glucose [Mass/Vol] 346 mg/dL High 65 - 99 mg/dL [facility] Interpretation and review of laboratory results Abnormal [facility] Glucose [Mass/Vol] 303 mg/dL High 65 - 99 mg/dL [facility] Interpretation and review of laboratory results Abnormal [facility] Procalcitoninon 11-06-2020 Interpretation and review of laboratory results Abnormal [facility] Procalcitonin [Mass/Vol] 3.85 ng/mL High <0.50 [facility] Results >2.00 ng/ml represent a high risk of severe sepsis and/or septic shock. [facility] Protein / Creatinine Ratio, Urineon 11-06-2020 Creatinine (U) [Mass/Vol] 36.6 mg/dL [facility] Interpretation and review of laboratory results Abnormal [facility] Protein (U) [Mass/Vol] 61.1 mg/dL [facility] Protein/Creatinine (U) [Ratio] 1.7 High [facility] Reflex Lactic Acid, Plasmaon 11-06-2020 Interpretation and review of laboratory results Abnormal [facility] Lactate [Moles/Vol] 2.1 mmol/L High 0.6 - 2 mmol/L [facility] Renal Function Panelon 11-06 Albumin [Mass/Vol] 1.5 g/dL Low 3.2 - 5.2 g/dL [facility] Anion gap [Moles/Vol] 13 mmol/L 10 - 2 0 mmol/L [facility] Calcium [Mass/Vol] 7.7 mg/dL Low 8.4 - 10. 2 mg/dL [facility] Chloride [Moles/Vol] 104 mmol/L 98 - 10 8 mmol/L [facility] Creatinine [Mass/Vol] 1.54 mg/dL High 0.50 - 1.30 [facility] GFR/1.73 sq M predicted among non-blacks MDRD (S/P/Bld) [Vol rate/Area] The eGFR should be used for monitoring renal function only and not for medication dosing. [facility] GFR/1.73 sq M.predicted CKD-EPI (S/P/Bld) [Vol rate/Area] 51 Low >=60 mL/min/1.73 m2 [facility] Glucose [Mass/Vol] 281 mg/dL High 65 - 99 mg/dL [facility] HCO3 [Moles/Vol] 19 mmol/L Low 21 - 32 mmol/L [facility] Interpretation and review of laboratory results Abnormal [facility] Phosphate [Mass/Vol] 2.2 mg/dL Low 2.7 - 4 .5 mg/dL [facility] Potassium [Moles/Vol] 3.8 mmol/L 3.5 - 5.1 mmol/L [facility] Sodium [Moles/Vol] 132 mmol/L Low 135 - 145 mmol/L [facility] Urea nitrogen [Mass/Vol] 36 mg/dL High 8 - 25 mg/dL [facility] Urea nitrogen/Creatinine [Mass ratio] 23.4 mg/mg High [facility] TSHon 11-06-2020 TSH Qn 0.80 m[IU]/L [facility] URINALYSISon 11-06-2020 Bacteria Auto Ql (U) Rare Abnormal None Se en /hpf [facility] Bilirubin Ql (U) Negative Negative [facility] th Clarity Refractometry automated (U) Clear Clear [facility] Color (U) Yellow Colorless, Yellow [facility] Epithelial cells.squamous Auto (Urine sed) [#/Area] <1 [facility] Glucose Auto test strip (U) [Mass/Vol] >=500 Abnormal Negative mg/dL [facility] Hemoglobin Auto test strip Ql (U) Moderate Abnormal Negative [facility] Interpretation and review of laboratory results Abnormal [facility] Ketones (U) [Mass/Vol] 20 Abnormal Negative mg/dL [facility] Leukocyte esterase Auto test strip Ql (U) Negative Negative [facility] Mucus Auto (Urine sed) [#/Area] Rare None Seen, Rare /lpf [facility] Nitrite Auto test strip Ql (U) Negative Negative [facility] pH (U) 5.5 [pH] [facility] Protein (U) [Mass/Vol] 30 Abnormal Negative mg/dL [facility] Comment on above: False positive resul ts may occur in urines with large amounts of hemoglobin, pH greater than 8.0, contrast medium, or disinfectants including ammonium compounds. RBC Auto (Urine sed) [#/Area] 19 High [facility] Specific gravity (U) [Rel density] 1.019 [facility] Urobilinogen (U) [Mass/Vol] <2.0 <2.0 mg/dL [facility] WBC Auto (Urine sed) [#/Area] 1 [facility] Microscopic examination is performed on all urinalysis samples and only positive findings are reported. The test for blood on the chemical analytic portion of urinalysis may also be positive due to hemoglobinuria and myoglobinuria and if red blood cells are present they are quantified by microscopic examination. [facility] XR COMPARISON IMPORTon 11-06 This order has been auto-finalized and does not contain a result. [facility] XR FOOT LEFT 3+ VIEWS (STAND ZAHRA)on [...] LEFT: BONES: No acute fracture or dislocation. Hpqk-gv-qfgrxxfy degenerative changes throughout the foot. Severe degenerative changes the 1st metatarsophalangeal joint with bony remodeling, dfdm-wd-alke articulation and marginal osteophyte formation. 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 Wvwq-qe-usxxisea degenerative changes throughout the foot. Severe degenerative changes the 1st metatarsophalangeal joint with bony remodeling, okhr-de-fmhq articulation and marginal osteophyte formation. Enthesopathic spurring [...] WedNov 06, 2020 10:27:44 AM EST Normal [facility] Comment on above: Order Comment: Injur y/Trauma or Illness?:Illness/Other How long have you had these symptoms (acute/chronic)?:Acute Reason for exam?:Secondary DM with DKA (HCC) History of cancer?: Surgeries, chemotherapy, or radiation?: Type of Exam?:Initial Additional signs and symptoms?:Secondary DM with DKA (HCC), no known injury Beta-Hydroxybutyrateon 11-05 Beta hydroxybutyrate [Moles/Vol] 1.4 mmol/L High 0 - 0.3 mmol/L [facility] Interpretation and review of laboratory results Abnormal [facility] CBC WITH AUTO DIFFERENTIALon 11-05-2020 Basophils (Bld) [#/Vol] 0.07 10*3/uL [facility] Basophils/100 WBC (Bld) 0.4 % [facility] Eosinophils (Bld) [#/Vol] 0.01 10*3/uL [facility] Eosinophils/100 WBC (Bld) 0.1 % [facility] Erythrocyte distribution width (RBC) [Entitic vol] 15.2 % High 11.6 - 14.8 % [facility] Hematocrit (Bld) [Volume fraction] 37.7 % Low 41 - 53 % [facility] Hemoglobin (Bld) [Mass/Vol] 11.9 g/dL Low 13.5 - 17.5 g/dL [facility] Immature granulocytes (Bld) [#/Vol] 0.10 10*3/uL [facility] Immature granulocytes/100 WBC (Bld) 0.60 % [facility] Comment on above: The IG parameter is the percentage of metamyelocytes, myelocytes and promyelocytes. An immature granulocyte count (IG) of 1% or more suggests the possibility of infection, an IG count of 3% is very likely related to an infection. Interpretation and review of laboratory results Abnormal [facility] Lymphocytes (Bld) [#/Vol] 0.60 10*3/uL Low [facility] Lymphocytes/100 WBC (Bld) 3.8 % [facility] MCH (RBC) [Entitic mass] 26.3 pg 26 - 34 pg [facility] MCHC (RBC) [Mass/Vol] 31.6 g/dL 31 - 37 g/dL [facility] MCV (RBC) [Entitic vol] 83.4 fL 80 - 100 fL [facility] Monocytes (Bld) [#/Vol] 1.71 10*3/uL [facility] Monocytes/100 WBC (Bld) 10.8 % [facility] Neutrophils (Bld) [#/Vol] 13.36 10*3/uL High [facility] Neutrophils/100 WBC (Bld) 84.3 % [facility] Nucleated RBC (Bld) [#/Vol] 0.00 10*3/uL [facility] Nucleated RBC/100 WBC (Bld) [Ratio] 0.0 % [facility] Platelet mean volume (Bld) [Entitic vol] 11.0 fL 9.4 - 12.4 fL [facility] Platelets (Bld) [#/Vol] 274 10*3/uL [facility] RBC (Bld) [#/Vol] 4.52 10*6/uL [facility] WBC (Bld) [#/Vol] 15.85 10*3/uL [facility] CPK NO MBon 11-05-2020 CK [Catalytic activity/Vol] 98 U/L 60 - 225 U/L [facility] Interpretation and review of laboratory results Normal [facility] CRP, Inflammationon 11-05-20 20 CRP [Mass/Vol] 468.0 mg/L High <=10.0 [facility] Comprehensive Metabolic Pane anuel 11-05-2020 Albumin [Mass/Vol] 1.8 g/dL Low 3.2 - 5.2 g/dL [facility] ALP [Catalytic activity/Vol] 95 U/L 40 - 150 U/L [facility] ALT [Catalytic activity/Vol] 16 U/L 14 - 65 U/L [facility] Anion gap [Moles/Vol] 14 mmol/L 10 - 2 0 mmol/L [facility] AST [Catalytic activity/Vol] 26 U/L 0 - 45 U/L [facility] Bilirubin [Mass/Vol] 0.9 mg/dL 0 - 1.3 mg/dL [facility] Calcium [Mass/Vol] 8.2 mg/dL Low 8.4 - 10. 2 mg/dL [facility] Chloride [Moles/Vol] 97 mmol/L Low 98 - 10 8 mmol/L [facility] Creatinine [Mass/Vol] 1.82 mg/dL High 0.50 - 1.30 [facility] GFR/1.73 sq M predicted among non-blacks MDRD (S/P/Bld) [Vol rate/Area] The eGFR should be used for monitoring renal function only and not for medication dosing. [facility] GFR/1.73 sq M.predicted CKD-EPI (S/P/Bld) [Vol rate/Area] 41 Low >=60 mL/min/1.73 m2 [facility] Glucose [Mass/Vol] 309 mg/dL High 65 - 99 mg/dL [facility] HCO3 [Moles/Vol] 22 mmol/L 21 - 32 mmol/L [facility] Potassium [Moles/Vol] 3.3 mmol/L Low 3.5 - 5.1 mmol/L [facility] Protein [Mass/Vol] 8.1 g/dL High 6 - 8 g/dL [facility] Sodium [Moles/Vol] 130 mmol/L Low 135 - 145 mmol/L [facility] Urea nitrogen [Mass/Vol] 42 mg/dL High 8 - 25 mg/dL [facility] Urea nitrogen/Creatinine [Mass ratio] 23.1 mg/mg High [facility] Lactic Acid, Plasmaon 2019 Interpretation and review of laboratory results Abnormal [facility] Lactate [Moles/Vol] 3.1 mmol/L High 0.6 - 2 mmol/L [facility] MR FOOT LEFT WITH AND WITHOU T [...] WedNov 06, 2020 9:27:00 PM EST Normal [facility] Comment on above: Order Comment: Injur [...] dome osteochondral lesion is seen. There is dvpq-sr-nhrhrzmd mid and hindfoot osteoarthritis with scattered marginal [...] 3. No MR signs of osteomyelitis. 4. Iihq-pa-iptlqequ mid/hindfoot osteoarthritis. 5. Remote sprains of the ATFL and deep fibers of the deltoid ligament, as above. [employer] Workstation ID: [id number] Dictated by: CHAN OLIVERA on WedNov 06, 2020 8:37:02 PM EST Transcribed by: DEBRA BOLIVAR on WedNov 06, 2020 8:49:17 PM EST Finalized by: CHAN OLIVERA on WedNov 06, 2020 8:58:02 PM EST Normal [facility] Comment on above: Order Comment: Injur y/Trauma or Illness?:Illness/Other How long have you had these symptoms (acute/chronic)?:Acute Reason for exam?:non healing wound on top of foot History of cancer?: Surgeries, chemotherapy, or radiation?: Type of Exam?:Initial Additional signs and symptoms?:pain Magnesiumon 11-05-2020 Interpretation and review of laboratory results Normal [facility] Magnesium [Mass/Vol] 2.0 mg/dL 1.6 - 2 .4 mg/dL [facility] Otheron 11-05-2020 Interpretation and review of laboratory results Abnormal [facility] Phosphoruson 11-05-2020 Phosphate [Mass/Vol] 1.6 mg/dL Low 2.7 - 4 .5 mg/dL [facility] Sedimentation Rateon 020 ESR (Bld) [Velocity] 110 mm/h High [facility] Interpretation and review of laboratory results Abnormal [facility] TROPONINon 11-05-2020 Troponin I.cardiac [Mass/Vol] ng/mL <=45 ng/L [facility] Troponin I.cardiac [Mass/Vol] No biomarker evidence of cardiac injury. [facility] Troponin I.cardiac [Mass/Vol] ng/mL <=45 ng/L [facility] Troponin I.cardiac [Mass/Vol] Normal [facility] XR CHEST PA/APon 11-05-2020 XR CHEST PA/AP [...] WedNov 05, 2020 8:04:45 PM EST Normal [facility] Comment on above: Order Comment: Injur y/Trauma or Illness?:Illness/Other How long have you had these symptoms (acute/chronic)?:Acute Reason for exam?:SOB History of cancer?: Surgeries, chemotherapy, or radiation?: Type of Exam?:Initial Additional signs and symptoms?:n XR Chest 1 Viewon 11-05-2020 Interface, Rad In [facility] - 11/05/2020 8:07 PM EST EXAMINATION: XR [...] be atelectasis or pneumonia Workstation ID: [id number] [facility] EXAMINATION: XR CHES T PA/AP 11/05/2020 7:25 [...] effusion or pneumothorax. No acute osseous abnormality. [facility] Shallow lungs with right basilar opacity, could be atelectasis or pneumonia Workstation ID: [id number] [facility] HEMOGLOBIN A1Con 12-26-2018 Hemoglobin A1c/Hemoglobin.total mass fraction (Bld) 7.6 % High 4.0-6.0 [facility] Comment on above: Performed By: #### [id number] #### [facility] [address] [facility]. [address] Hemoglobin A1c/Hemoglobin.total mass fraction (Bld) 171 mg/dL High 70-126 [facility] Comment on above: Performed By: #### [id number] #### [facility] [address] Vital Signs Date Time Vital Sign Value Performing Clinician Facility 08-13-2025 08:17-0400 Body mass index (BMI) [Ratio] 37.31 kg/m2 [facility] 08-13-2025 08:17-0400 Body weight 112.95 kg [facility] 08-13-2025 08:17-0400 Diastolic blood pressure 72 mm[Hg] [facility] 08-13-2025 08:17-0400 Heart rate 94 /min [facility] 08-13-2025 08:17-0400 Systolic blood pressure 115 mm[Hg] [facility] 08-10-2025 10:17-0400 Body mass index (BMI) [Ratio] 37.46 kg/m2 Art Freeman DO Work Phone: [facility] 08-10-2025 10:17-0400 Body temperature 97.59 [degF] Art Freeman DO Work Phone: [facility] 08-10-2025 10:17-0400 Body weight 113.4 kg Art Freeman DO Work Phone: [facility] [employer] [facility] 08-10-2025 10:17-0400 Diastolic blood pressure 78 mm[Hg] Art Freeman DO Work Phone: [facility] [employer] [facility] 08-10-2025 10:17-0400 Heart rate 82 /min Art Freeman DO Work Phone: [facility] 08-10-2025 10:17-0400 SaO2% (BldA) [Mass fraction] 96 % Art Freeman DO Work Phone: [facility] 08-10-2025 10:17-0400 Systolic blood pressure 132 mm[Hg] Art Freeman DO Work Phone: [facility] 07-16-2025 13:30-0400 Body mass index (BMI) [Ratio] 37.59 kg/m2 [facility] 07-16-2025 13:30-0400 Body weight 113.8 kg [facility] 07-09-2025 12:22-0400 Diastolic blood pressure 74 mm[Hg] Cheng Aichholz Work Phone: [facility] 07-09-2025 12:22-0400 Heart rate 78 /min Cheng Aichholz Work Phone: [facility] 07-09-2025 12:22-0400 Respiratory rate 16 /min Cheng Aichholz Work Phone: [facility] 07-09-2025 12:22-0400 SaO2% (BldA) [Mass fraction] 95 % Cheng Aichholz Work Phone: [facility] 07-09-2025 12:22-0400 Systolic blood pressure 112 mm[Hg] Cheng Aichholz Work Phone: [facility] 07-09-2025 10:40-0400 Inhaled oxygen flow rate 2 L/min Cheng Aichholz Work Phone: [facility] 07-09-2025 08:31-0400 Body height 177.8 cm Cheng Staples Work Phone: [facility] 07-09-2025 08:31-0400 Body weight 117.02 kg Cheng Staples Work Phone: [facility] 07-05-2025 09:26-0400 Body mass index (BMI) [Ratio] 37.54 kg/m2 Art Freeman DO Work Phone: [facility] [employer] [facility] 07-05-2025 09:26-0400 Body temperature 98.1 [degF] Art Freeman DO [facility] 07-05-2025 09:26-0400 Body weight 113.67 kg Art Freeman DO [facility] Phone[facility] 07-05-2025 09:26-0400 Diastolic blood pressure 72 mm[Hg] Art Freeman DO [facility] Phone[facility] 07-05-2025 09:26-0400 Heart rate 90 /min Art Freeman DO Work Phone: [facility] 07-05-2025 09:26-0400 SaO2% (BldA) [Mass fraction] 95 % Art Freeman DO Work Phone: [facility] [employer] [facility] 07-05-2025 09:26-0400 Systolic blood pressure 116 mm[Hg] Art Freeman DO Work Phone: [facility] [employer] [facility] 06-28-2025 10:48-0400 Body height 177.8 cm Cheng Staples Work Phone: [facility] 06-28-2025 10:48-0400 Body mass index (BMI) [Ratio] 38.2 kg/m2 Cheng Chaoholnia Work Phone: [facility] 06-28-2025 10:48-0400 Body temperature 98.2 [degF] Cheng Aichholz Work Phone: [facility] 06-28-2025 10:48-0400 Body weight 121.1 kg Cheng Staples Work Phone: [facility] 06-28-2025 10:48-0400 Diastolic blood pressure 82 mm[Hg] Cheng Stapels Work Phone: [facility] 06-28-2025 10:48-0400 Heart rate 68 /min Cheng Staples Work Phone: [facility] 06-28-2025 10:48-0400 Respiratory rate 16 /min Cheng Staples Work Phone: [facility] 06-28-2025 10:48-0400 SaO2% (BldA) [Mass fraction] 98 % Cheng Staples Work Phone: [facility] 06-28-2025 10:48-0400 Systolic blood pressure 122 mm[Hg] Cheng Staples Work Phone: [facility] 05-10-2025 09:29-0400 Body mass index (BMI) [Ratio] 38.11 kg/m2 Art Freeman DO [facility] 05-10-2025 09:29-0400 Body temperature 97.81 [degF] Art Gutierrezlauren Work Phone: [facility] 05-10-2025 09:29-0400 Body weight 115.39 kg Art Freeman DO Work Phone: [employer] [facility] 05-10-2025 09:29-0400 Diastolic blood pressure 72 mm[Hg] Art Freeman DO [facility] Phone[facility] 05-10-2025 09:29-0400 Heart rate 90 /min Art Freeman DO [facility] Phone[facility] 05-10-2025 09:29-0400 SaO2% (BldA) [Mass fraction] 95 % Art Freeman DO Work Phone: [facility] 05-10-2025 09:29-0400 Systolic blood pressure 110 mm[Hg] Art Freeman DO Work Phone: [facility] 04-26-2025 14:12-0400 Body height 174 cm Art Freeman DO Work Phone: [facility] 04-26-2025 14:12-0400 Body mass index (BMI) [Ratio] 38.05 kg/m2 Art Freeman DO Work Phone: [facility] 04-26-2025 14:12-0400 Body temperature 98.1 [degF] Art Freeman DO Work Phone: [facility] 04-26-2025 14:12-0400 Body weight 115.21 kg Art Freeman DO Work Phone: [facility] 04-26-2025 14:12-0400 Diastolic blood pressure 82 mm[Hg] Art Freeman DO Work Phone: [facility] 04-26-2025 14:12-0400 Heart rate 95 /min Art Freeman DO Work Phone: [facility] 04-26-2025 14:12-0400 SaO2% (BldA) [Mass fraction] 96 % Art Freeman DO Work Phone: [facility] 04-26-2025 14:12-0400 Systolic blood pressure 118 mm[Hg] Art Freeman DO Work Phone: [facility] 04-24-2025 09:00-0400 Body temperature 97.7 [degF] Sherri CHAVEZ Work Phone: [facility] 04-24-2025 09:00-0400 Diastolic blood pressure 81 mm[Hg] Sherri Garcia APRN-ROSALIA Work Phone: [facility] 04-24-2025 09:00-0400 Heart rate 97 /min Sherri Kaitlynn [employer]ER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 Work Phone: [facility] 04-24-2025 09:00-0400 Respiratory rate 16 /min Sherri Garcia 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 Work Phone: [facility] 04-24-2025 09:00-0400 Systolic blood pressure 116 mm[Hg] Sherri Garcai 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 Work Phone: [facility] 04-11-2025 10:36-0400 Body temperature 97.5 [degF] Sherri Garcia 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 Work Phone: [facility] 04-11-2025 10:36-0400 Diastolic blood pressure 73 mm[Hg] Sherri Garcia 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 Work Phone: [facility] 04-11-2025 10:36-0400 Heart rate 100 /min Sherri Garcia 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 Work Phone: [facility] 04-11-2025 10:36-0400 Respiratory rate 16 /min Sherri Garcia 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 Work Phone: [facility] 04-11-2025 10:36-0400 Systolic blood pressure 157 mm[Hg] Sherri Garcia 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 Work Phone: [facility] 03-28-2025 10:56-0400 Body temperature 97.7 [degF] Sherri Garcia 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 Work Phone: [facility] 03-28-2025 10:56-0400 Diastolic blood pressure 85 mm[Hg] Sherri Garcia 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 Work Phone: [facility] 03-28-2025 10:56-0400 Heart rate 94 /min Sherri Garcia 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 Work Phone: [facility] 03-28-2025 10:56-0400 Respiratory rate 16 /min Sherri Garcia 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 Work Phone: [facility] 03-28-2025 10:56-0400 Systolic blood pressure 144 mm[Hg] Sherri Garcia APRN-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 Work Phone: [facility] 10-24-2024 08:45-0500 Body height 177.8 cm Davida Price MD Work Phone: [facility] 10-24-2024 08:45-0500 Body mass index (BMI) [Ratio] 36.73 kg/m2 Davida Price MD Work Phone: [facility] 10-24-2024 08:45-0500 Body temperature 98.29 [degF] Davida Price MD Work Phone: [facility] 10-24-2024 08:45-0500 Body weight 116.12 kg Davida Price MD Work Phone: [facility] 10-24-2024 08:45-0500 Diastolic blood pressure 71 mm[Hg] Davida Price MD Work Phone: [facility] 10-24-2024 08:45-0500 Heart rate 100 /min Davida Price MD Work Phone: [facility] 10-24-2024 08:45-0500 SaO2% (BldA) [Mass fraction] 96 % Davida Price MD Work Phone: [facility] 10-24-2024 08:45-0500 Systolic blood pressure 113 mm[Hg] Davida Prcie MD Work Phone: [facility] 05-09-2024 14:19-0400 Body height 177.8 cm Cheng Staples Work Phone: [facility] 05-09-2024 14:19-0400 Body mass index (BMI) [Ratio] 38.4 kg/m2 Cheng Staples Work Phone: [facility] 05-09-2024 14:19-0400 Body weight 121.56 kg Cheng Staples Work Phone: [facility] 02-03-2024 14:52-0400 Diastolic blood pressure 70 mm[Hg] Cheng Aichholz Work Phone: [facility] 02-03-2024 14:52-0400 Heart rate 88 /min Cheng Aichholz Work Phone: [facility] 02-03-2024 14:52-0400 Respiratory rate 16 /min Cheng Aichholz Work Phone: [facility] 02-03-2024 14:52-0400 SaO2% (BldA) [Mass fraction] 98 % Cheng Aichholz Work Phone: [facility] 02-03-2024 14:52-0400 Systolic blood pressure 114 mm[Hg] Cheng Aichholz Work Phone: [facility] 02-03-2024 12:58-0400 Body height 177.8 cm Cheng Aichholz Work Phone: [facility] 02-03-2024 12:58-0400 Body weight 117.02 kg Cheng Aichholz Work Phone: [facility] 01-07-2024 11:03-0500 Body weight 117.02 kg Cheng Aichholz Work Phone: [facility] 01-07-2024 11:03-0500 Diastolic blood pressure 78 mm[Hg] Cheng Aichholz Work Phone: [facility] 01-07-2024 11:03-0500 Heart rate 95 /min Cheng Aichholz Work Phone: [facility] 01-07-2024 11:03-0500 Systolic blood pressure 120 mm[Hg] Cheng Aichholz Work Phone: [facility] 11-08-2023 15:00-0500 Body height 177.8 cm Sebastián Santillan Other [facility] 11-08-2023 15:00-0500 Body mass index (BMI) [Ratio] 36.94 kg/m2 Tondra Mapus Other [employer] Other 11-08-2023 15:00-0500 Body weight 116.8 kg Tondra Mapus Other [facility] 11-08-2023 15:00-0500 Diastolic blood pressure 77 mm[Hg] Tondra Mapus Other [facility] 11-08-2023 15:00-0500 Respiratory rate 18 /min Tondra Mapus Other [employer] Other 11-08-2023 15:00-0500 SaO2% (BldA) [Mass fraction] 95 % Tondra Mapus Other [employer] Other 11-08-2023 15:00-0500 Systolic blood pressure 121 mm[Hg] Tondra Mapus Other [facility] 08-25-2023 10:00-0400 Body height 177.8 cm Maxi John Other [employer] Other 08-25-2023 10:00-0400 Body mass index (BMI) [Ratio] 35.97 kg/m2 Maxi John Other [employer] Other 08-25-2023 10:00-0400 Body weight 113.72 kg Maxi Scovanner Other [employer] Other 08-25-2023 10:00-0400 Diastolic blood pressure 69 mm[Hg] Maxi Scovanner Other [employer] Other 08-25-2023 10:00-0400 Systolic blood pressure 104 mm[Hg] Maxi Scovanner Other [employer] Other 02-23-2023 11:00-0400 Body height 177.8 cm Amor Fernandez Other [employer] Other 02-23-2023 11:00-0400 Body mass index (BMI) [Ratio] 34.43 kg/m2 Amor Ditty Other [employer] Other 02-23-2023 11:00-0400 Body weight 108.86 kg Amor Heaventty Other [employer] Other 02-23-2023 11:00-0400 Diastolic blood pressure 68 mm[Hg] Amor Ditty Other [employer] Other 02-23-2023 11:00-0400 Systolic blood pressure 111 mm[Hg] Amor Ditty Other [employer] Other 08-25-2022 11:00-0400 Body height 177.8 cm Amor Adamsy Other [employer] Other 08-25-2022 11:00-0400 Body mass index (BMI) [Ratio] 34.15 kg/m2 Amor Heaventty Other [employer] Other 08-25-2022 11:00-0400 Body weight 107.96 kg Amor Ditty Other [employer] Other 08-25-2022 11:00-0400 Diastolic blood pressure 82 mm[Hg] Amor Ditty Other [employer] Other 08-25-2022 11:00-0400 Systolic blood pressure 134 mm[Hg] Amor Fernandez Other [facility] [employer] Other 02-06-2021 13:44-0400 Body Temperature 97.9 [degF] [facility] 02-06-2021 13:44-0400 BP Diastolic 60 mm[Hg] [facility] 02-06-2021 13:44-0400 BP Systolic 102 mm[Hg] [facility] 02-06-2021 13:44-0400 Pulse (Heart Rate) 129 /min [facility] 02-06-2021 13:44-0400 Pulse Oximetry 96 % [facility] 02-06-2021 13:44-0400 Respiratory Rate 16 /min [facility] 01-09-2021 14:15-0500 Body Temperature 97.2 [degF] [facility] 01-09-2021 14:15-0500 BP Diastolic 64 mm[Hg] [facility] 01-09-2021 14:15-0500 BP Systolic 95 mm[Hg] [facility] 01-09-2021 14:15-0500 Pulse (Heart Rate) 106 /min [facility] 01-09-2021 14:15-0500 Pulse Oximetry 97 % [facility] 01-09-2021 14:15-0500 Respiratory Rate 12 /min [facility] 12-27-2020 10:35-0500 Body Temperature 98.1 [degF] [facility] 12-27-2020 10:35-0500 BP Diastolic 73 mm[Hg] [facility] 12-27-2020 10:35-0500 BP Systolic 122 mm[Hg] [facility] 12-27-2020 10:35-0500 Pulse (Heart Rate) 108 /min [facility] 12-27-2020 10:35-0500 Pulse Oximetry 96 % [facility] 12-27-2020 10:35-0500 Respiratory Rate 18 /min [facility] 12-19-2020 14:09-0500 Body Temperature 97.81 [degF] [facility] 12-19-2020 14:09-0500 BP Diastolic 99 mm[Hg] [facility] 12-19-2020 14:09-0500 BP Systolic 146 mm[Hg] [facility] 12-19-2020 14:09-0500 Pulse (Heart Rate) 101 /min [facility] 12-19-2020 14:09-0500 Pulse Oximetry 98 % [facility] 12-19-2020 14:09-0500 Respiratory Rate 18 /min [facility] 11-21-2020 11:38-0500 Body Temperature 98.01 [degF] [facility] 11-21-2020 11:38-0500 BP Diastolic 74 mm[Hg] [facility] 11-21-2020 11:38-0500 BP Systolic 109 mm[Hg] [facility] 11-21-2020 11:38-0500 Pulse (Heart Rate) 96 /min [facility] 11-21-2020 11:38-0500 Pulse Oximetry 93 % [facility] 11-21-2020 11:38-0500 Respiratory Rate 18 /min [facility] 11-18-2020 11:38-0500 BMI (Body Mass Index) 33.21 kg/m2 [facility] 11-18-2020 11:38-0500 Body weight 105 kg [facility] 11-18-2020 11:38-0500 Height 177.8 cm [facility] Encounters Encounter Date Encounter Type Care Provider Facility Start: 08-30-2025 End: 08-30-2025 Telephone encounter Phu Ocasio MA [facility] - Pharmacy Medication Management Start: 08-27-2025 End: 08-27-2025 Telephone encounter Art Freeman DO [facility] Start: 08-24-2025 End: 08-24-2025 Telephone encounter Ev Marquez CMA [facility] Start: 08-22-2025 End: 08-22-2025 Patient encounter procedure Cathy Leggett [employer] -[facility] [place] Work Phone: Start: 08-22-2025 End: 08-22-2025 ambulatory Cheng BRITO Work Phone: [facility] Work Phone: Start: 08-16-2025 End: 08-16-2025 Telephone encounter Ev Marquez [facility] Start: 08-13-2025 End: 08-13-2025 ambulatory [facility] Comment on above: Type 2 diabetes brandon itus with pressure callus ([facility]) [E11.628, L84] (Primary Dx) Start: 08-10-2025 End: 08-10-2025 Office outpatient visit 25 minutes Art Freeman DO Work Phone: [facility] Comment on above: Type 2 diabetes brandon itus with other circulatory complication, with long-term current use of insulin ([facility]) (Primary Dx); Type 2 diabetes mellitus with foot ulcer, with long-term current use of insulin ([facility]); Benign essential HTN; Mixed hyperlipidemia due to type 2 diabetes mellitus ([facility]) ; Gastroesophageal reflux disease, unspecified whether esophagitis present; Chronic midline low back pain without sciatica; Ulcer of right foot with fat layer exposed ([facility]) Start: 08-10-2025 End: 08-10-2025 ambulatory [facility] Start: 07-17-2025 End: 07-17-2025 ambulatory [facility] Medication Management Work Phone: [facility] - Pharmacy Medication Management Start: 07-17-2025 End: 07-17-2025 Follow-up encounter Art Freeman DO Work Phone: [facility] Comment on above: Lipid panel Start: 07-16-2025 End: 07-16-2025 Clinical Support [facility] - Pharmacy Medication Management Comment on above: Type 2 diabetes brandon itus with other circulatory complication, with long-term current use of insulin ([facility]) (Primary Dx) Start: 07-16-2025 Non-patient / Non-visit Frederick Quintanilla MD -[facility] Vascular Surg Work Phone: Start: 07-09-2025 End: 07-09-2025 Admission to same day surgery center Chan Quintanilla MD -Interventional Radiology Work Phone: Start: 07-09-2025 End: 07-09-2025 ambulatory Cheng J Bel Work Phone: [facility] Work Phone: Start: 07-05-2025 End: 07-06-2025 Telephone encounter [facility] Pharmacy Medication Management Work Phone: [facility] - Pharmacy Medication Management Comment on above: Type 2 diabetes brandon itus with foot ulcer, with long-term current use of insulin ([facility]) Start: 07-05-2025 End: 07-05-2025 Transitional care manage [facility] 14 day discharge Art Freeman DO Work Phone: [facility] Comment on above: Ulcer of right foot with fat layer exposed ([facility]) (Primary Dx); Type 2 diabetes mellitus with foot ulcer, with long-term current use of insulin ([facility]); Hyperlipidemia, unspecified hyperlipidemia type; Gastroesophageal reflux disease, unspecified whether esophagitis present; Peripheral artery disease Start: 07-05-2025 End: 07-05-2025 ambulatory ART Roger [facility] Start: 06-28-2025 End: 06-28-2025 Patient encounter procedure Chan Quintanilla MD -Ultrasound [facility] Start: 06-28-2025 End: 06-28-2025 ambulatory Cheng J Bel Work Phone: [facility] Work Phone: Start: 06-28-2025 End: 06-28-2025 ambulatory Cheng J Calixtohjesi Work Phone: [facility] Work Phone: Start: 06-28-2025 End: 06-28-2025 Patient encounter procedure Cathy Ramirez APRN -[facility] Vascular Surg Work Phone: Start: 06-07-2025 End: 06-07-2025 ambulatory VIKTOR GANDHI [facility] Start: 05-22-2025 End: 05-22-2025 Telephone encounter Danielle Masters CNA [facility] Comment on above: Results Start: 05-16-2025 End: 05-16-2025 Orders Only Art Freeman DO Work Phone: [facility] Comment on above: Type 2 diabetes brandon itus with foot ulcer, with long-term current use of insulin ([facility]) (Primary Dx) Start: 05-13-2025 End: 05-16-2025 Refill Art Freeman DO Work Phone: [facility] Comment on above: Type 2 diabetes brandon itus with foot ulcer, with long-term current use of insulin ([facility]) Start: 05-10-2025 End: 05-10-2025 Office outpatient visit 25 minutes Art Freeman DO Work Phone: [facility] Comment on above: Type 2 diabetes brandon itus with foot ulcer, with long-term current use of insulin ([facility]); Benign essential HTN; Gastroesophageal reflux disease, unspecified whether esophagitis present; Chronic midline low back pain without sciatica; Encounter for screening for malignant neoplasm of prostate; Fatigue, unspecified type Start: 05-10-2025 End: 05-10-2025 ambulatory [facility] Start: 05-02-2025 End: 05-02-2025 ambulatory [facility] Start: 04-26-2025 End: 04-26-2025 Office outpatient new 45 minutes Art Freeman DO Work Phone: [facility] Comment on above: Benign essential HTN (Primary Dx); Type 2 diabetes mellitus with foot ulcer, with long-term current use of insulin ([facility]); Chronic midline low back pain without sciatica; Fatty liver disease, nonalcoholic; Visit for wound check; Hyperglycemia; Gastroesophageal reflux disease, unspecified whether esophagitis present Start: 04-26-2025 End: 04-26-2025 ambulatory ART FREEMAN [facility] Start: 04-24-2025 End: 04-24-2025 ambulatory SHERRI GARCIA [facility] Start: 04-24-2025 End: 04-24-2025 Patient encounter procedure Sherri Garcia 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 Work Phone: [facility] Comment on above: Diabetic ulcer of ri ght midfoot associated with type 2 diabetes mellitus, with muscle involvement without evidence of necrosis (CMS-HCC) (Primary Dx); 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) Start: 04-20-2025 End: 04-20-2025 ambulatory Jerome Del Toro DO Work Phone: [facility] Start: 04-18-2025 End: 04-18-2025 Telephone encounter Jerome Del Toro DO Work Phone: General Surgery Comment on above: Care Coordination (A ppeal for GPOEM denial ) Start: 04-11-2025 End: 04-11-2025 Patient encounter procedure Sherri Garcia 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 Work Phone: [facility] Comment on above: Diabetic ulcer of ri ght midfoot associated with type 2 diabetes mellitus, with muscle involvement without evidence of necrosis (CMS-HCC) (Primary Dx); History of transmetatarsal amputation of right foot (CMS-HCC); 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); Wound, open, foot with complication, left, initial encounter; Unstable ankle, right Start: 04-11-2025 End: 04-11-2025 ambulatory SHERRI GARCIA [facility] Start: 04-10-2025 End: 04-10-2025 ambulatory ART FIGUEREDO Facility:[facility] Start: 04-10-2025 End: 04-10-2025 ambulatory JEROME DEL TORO Facility:[facility] Start: 04-05-2025 End: 04-05-2025 Telephone encounter Art Figueredo DO Work Phone: Gastroenterology Comment on above: Care Coordination (G astroparesis clinic: chart review; new patient call ) Start: 03-28-2025 End: 03-28-2025 Office outpatient new 20 minutes Sherri Garcia 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 Work Phone: [facility] Comment on above: Diabetic ulcer of ri ght midfoot associated with type 2 diabetes mellitus, with muscle involvement without evidence of necrosis (CMS-HCC) (Primary Dx); History of transmetatarsal amputation of right foot (CMS-HCC); Visit for wound check Start: 03-28-2025 End: 03-28-2025 ambulatory SHERRI GARCIA [facility] Start: 03-04-2025 End: 03-04-2025 Emergency department patient visit NO PCP NO PCP [facility] Start: 11-21-2024 End: 11-21-2024 Telephone encounter Davida Price MD Work Phone: Gastroenterology Comment on above: Crystalizer Operator - O ther (Dr Yoon's office/request for office note) Start: 10-24-2024 End: 10-24-2024 Patient encounter procedure Daivda Price MD Work Phone: Gastroenterology Comment on above: Gastroparesis (Prima ry Dx) Start: 10-24-2024 End: 10-24-2024 ambulatory DAVIDA PRICE Facility:[facility] Start: 06-22-2024 Telephone encounter Art Figueredo DO Work Phone: Gastroenterology Start: 06-12-2024 End: 06-12-2024 ambulatory Cheng Staples Work Phone: [facility] Work Phone: Start: 06-12-2024 End: 06-12-2024 Patient encounter procedure Cheng Staples Work Phone: [facility] [place] Work Phone: Start: 06-06-2024 End: 06-06-2024 ambulatory Cheng Staples Work Phone: [facility] Work Phone: Start: 06-06-2024 End: 06-06-2024 Patient encounter procedure Cheng Chaosenania Work Phone: [facility] [place] Work Phone: Start: 05-09-2024 End: 05-09-2024 Patient encounter procedure Cheng Chaojesi Work Phone: [facility] Work Phone: Start: 03-13-2024 End: 03-13-2024 ambulatory CHENG BEL Not Available Start: 02-03-2024 Non-patient / Non-visit Cheng Rachana kavitha Work Phone: [facility] Work Phone: Start: 02-03-2024 End: 02-03-2024 Admission to same day surgery center Cheng Chaojesi Work Phone: [facility] Work Phone: Start: 02-03-2024 End: 02-03-2024 ambulatory Cheng Dasilva Calixtoameliejesi Work Phone: [facility] Work Phone: Start: 01-07-2024 End: 01-07-2024 Patient encounter procedure Cheng Bel Work Phone: [facility] Work Phone: Start: 01-06-2024 End: 01-06-2024 ambulatory CHENG CELESTEHOLZ Not Available Start: 01-06-2024 Bamboo flowsheet Cheng Bel [employer] Work Phone: [facility] Start: 01-06-2024 Bamboo flowsheet Cheng Celesteholz [employer] Work Phone: [facility] Start: 11-25-2023 End: 11-25-2023 ambulatory Maxi John Other [employer] Other Start: 11-25-2023 Office outpatient vi sit 15 minutes Maxi John [facility] Gastroenterology Start: 11-25-2023 Patient encounter procedure Cheng Chaojesi Work Phone: [facility] Physician Group- Start: 11-09-2023 End: 11-09-2023 ambulatory Tondra Santillan Other [employer] Other Start: 11-09-2023 Telephone encounter Tondra Lauryus [facility] Start: 11-08-2023 End: 11-08-2023 Discharged Recurring Cheng Bel Work Phone: [facility] Work Phone: Start: 11-08-2023 End: 11-08-2023 ambulatory Cheng Dasilva Calixtoameliejesi Work Phone: [employer] Other Start: 11-08-2023 FQ visit new patient Sebastián Santillan [facility] Start: 11-08-2023 End: 11-08-2023 Patient encounter procedure Cheng Chaosenania Work Phone: [facility] Work Phone: Start: 11-02-2023 End: 11-02-2023 ambulatory CHENG CALIXTOAmelieJESI Not Available Start: 09-15-2023 End: 09-15-2023 ambulatory Iva Fitt Other [employer] Other Start: 09-15-2023 Telephone encounter Iva Fitt [facility] Start: 09-13-2023 End: 09-13-2023 ambulatory Iva Fitt Other [employer] Other Start: 09-13-2023 Telephone encounter Iva Fitt [facility] Start: 08-25-2023 End: 08-25-2023 ambulatory Maxi John Other [employer] Other Start: 08-25-2023 Office outpatient vi sit 15 minutes Maxi John [facility] Start: 03-18-2023 End: 03-19-2023 ambulatory GIROLAGILBERTO TROTTI Facility:[facility] Start: 02-23-2023 End: 02-23-2023 ambulatory Amor Heavenreginaldjose cruz Other [employer] Other Start: 02-23-2023 Patient encounter procedure Amor Fernandez [facility] Start: 08-25-2022 End: 08-25-2022 ambulatory Amor Heavenreginaldjose cruz Other [employer] Other Start: 08-25-2022 Patient encounter procedure Amor Fernandez [facility] Start: 04-02-2021 End: 04-02-2021 ambulatory PRINCE Reagan [facility]MARY [facility] Start: 02-06-2021 End: 02-06-2021 Patient encounter procedure MARCELLA MARTINEZ MANAV [facility] Start: 02-06-2021 End: 02-06-2021 Patient encounter procedure Marcella Bell Work Phone: [facility] Comment on above: Foot abscess, left ( Primary Dx) Start: 01-29-2021 End: 01-29-2021 Orders Only Tsering Silvestre Work Phone: [facility] Start: 01-24-2021 End: 01-25-2021 Patient encounter procedure LEANNERachana MARTINES DILIP [facility] Start: 01-24-2021 End: 01-24-2021 Patient encounter procedure Leanne Millicent [place] Work Phone: [facility] Comment on above: Foot abscess, left ( Primary Dx); Charcot foot due to diabetes mellitus (HCC); MSSA (methicillin susceptible Staphylococcus aureus) infection Start: 01-24-2021 End: 01-24-2021 Office outpatient visit 15 minutes Leanne Maxwellusman Dilip Work Phone: [facility] Comment on above: Subacute osteomyelit is of left foot (HCC) (Primary Dx) Start: 01-09-2021 End: 01-10-2021 Patient encounter procedure [facility] Start: 01-09-2021 End: 01-09-2021 Subsequent hospital visit by physician Leanne Cherry Work Phone: [facility] Comment on above: Arrived Start: 01-09-2021 End: 01-09-2021 Office outpatient visit 25 minutes Leanne Millicent Reeceeler Work Phone: [facility] Comment on above: Charcot's joint of a nkle, unspecified laterality (Primary Dx) Start: 01-09-2021 End: 01-09-2021 Patient encounter procedure Marcella Bell Work Phone: [facility] Comment on above: Subacute osteomyelit is of left foot (HCC) (Primary Dx) Start: 12-27-2020 End: 12-27-2020 Patient encounter procedure [facility] Start: 12-27-2020 End: 12-27-2020 Office outpatient visit 15 minutes Leannerachana Reeceeler Work Phone: [facility] Comment on above: Subacute osteomyelit is of left foot (HCC) (Primary Dx); Charcot's joint of ankle, unspecified laterality Start: 12-19-2020 End: 12-19-2020 Patient encounter procedure MARCELLA MARTINEZ MANAV [facility] Start: 12-19-2020 End: 12-19-2020 Patient encounter procedure Marcella Bell Work Phone: [facility] Comment on above: Subacute osteomyelit is of left foot (HCC) (Primary Dx) Start: 11-20-2020 End: 11-20-2020 Documentation procedure Phu Buck [facility] Start: 11-20-2020 Patient encounter procedure PHU BUCK [facility] Start: 11-05-2020 End: 11-21-2020 Evaluation and management of inpatient PROVIDER NOT IN SYSTEM [facility] Start: 11-05-2020 End: 11-21-2020 Evaluation and management of inpatient Generic [facility] Work Phone: [facility] Comment on above: Other acute osteomye litis of left foot (HCC) (Primary Dx); Uncontrolled type 2 diabetes mellitus with peripheral neuropathy (HCC); Secondary DM with DKA (HCC); 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, with long-term current use of insulin, macular edema presence unspecified, unspecified proliferative retinopathy type (HCC) Start: 12-26-2018 End: 12-27-2018 Patient encounter procedure JAVI FIGUEROA Facility:[facility] Procedures Date Procedure Procedure Detail Performing Clinician Start: 08-22-2025 CT angiography of head Cheng OLMEDO C Work Phone: Start: 08-22-2025 CT angiography of neck vessels Cheng knapp [employer] Work Phone: Start: 08-10-2025 Adult depression screening assessment Art Freeman DO Work Phone: Start: 07-09-2025 IR Angiogram w/TLA/Stent Right Leg (Right) Cheng Staples Work Phone: Start: 07-05-2025 Adult depression screening assessment [facility] Work Phone: Start: 05-10-2025 Follow-up visit Follow-up ART FREEMAN Start: 05-10-2025 Adult depression screening assessment Art Freeman DO Work Phone: Start: 04-26-2025 Adult depression screening assessment Art Freeman DO Work Phone: Start: 04-24-2025 NURSING COMMUNICATION Sherri Garcia 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 Work Phone: Start: 04-24-2025 Other immobilization, pressure, and attention to wound Sherri Garcia 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 Work Phone: Start: 04-11-2025 NURSING COMMUNICATION Sherri Garcia 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 Work Phone: Start: 04-11-2025 Other immobilization, pressure, and attention to wound Sherri Garcia 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 Work Phone: Start: 03-28-2025 Other immobilization, pressure, and attention to wound Sherri Garcia 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 Work Phone: Start: 06-12-2024 Radionuclide gastric emptying study Cheng Staples Work Phone: Start: 06-06-2024 Computed tomography of abdomen and pelvis with contrast Cheng Staples Work Phone: Start: 05-01-2024 Lipid 1996 panel - Serum or Plasma Nicolas Price MD Work Phone: Start: 05-01-2024 Microalbumin [Mass/volume] in Urine by Test strip Sherri Garcia 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 Work Phone: Start: 02-03-2024 Esophagogastroduodenoscopy Cheng Staples Work Phone: Start: 01-09-2021 X-ray of left ankle Leanne Sabry Dilip Work Phone: Start: 01-09-2021 X-ray of left foot Leanne Sabry [place] Work Phone: Start: 12-27-2020 Aerobic microbial culture Leanne Sabusman Nikita ler Work Phone: Start: 12-27-2020 Bacteria identified in Bone by Aerobe culture Leanne Sabry Dilip Work Phone: Start: 12-27-2020 BIOPSY Leanne Sabry [place] Work Phone: Start: 11-21-2020 Glucose [Mass/volume] in Blood [facility] alison Mosalem Work Phone: Start: 11-21-2020 Glucose [Mass/volume] in Blood [facility] alison Mosalem Work Phone: Start: 11-21-2020 Glucose [Mass/volume] in Blood [facility] Work Phone: Start: 11-21-2020 Basic metabolic 2000 panel - Serum or Plasma [employer] Work Phone: Start: 11-21-2020 Complete blood count (hemogram) panel - Blood by Automated count [employer] Work Phone: Start: 11-21-2020 Magnesium [Mass/volume] in Serum or Plasma [employer] Hugo Work Phone: Start: 11-20-2020 Glucose [Mass/volume] in Blood [facility] alison Arora Work Phone: Start: 11-20-2020 Glucose [Mass/volume] in Blood [facility] alison Arora Work Phone: Start: 11-20-2020 Glucose [Mass/volume] in Blood [facility] alison Arora Work Phone: Start: 11-20-2020 Glucose [Mass/volume] in Blood Flako Pinedo Work Phone: Start: 11-20-2020 Basic metabolic 2000 panel - Serum or Plasma [employer] Work Phone: Start: 11-20-2020 C reactive protein [Mass/volume] in Serum or Plasma Jai Kumar Work Phone: Start: 11-20-2020 Complete blood count (hemogram) panel - Blood by Automated count [employer] Work Phone: Start: 11-20-2020 Erythrocyte sedimentation rate by Westergren method Jai Hodgen Work Phone: Start: 11-20-2020 Magnesium [Mass/volume] in Serum or Plasma [employer] Work Phone: Start: 11-19-2020 Glucose [Mass/volume] in Blood Flako Pinedo Work Phone: Start: 11-19-2020 Glucose [Mass/volume] in Blood Flako Pinedo Work Phone: Start: 11-19-2020 Glucose [Mass/volume] in Blood Flako Pinedo Work Phone: Start: 11-19-2020 Glucose [Mass/volume] in Blood Flako Pinedo Work Phone: Start: 11-19-2020 Basic metabolic 2000 panel - Serum or Plasma [employer] Work Phone: Start: 11-19-2020 Complete blood count (hemogram) panel - Blood by Automated count [employer] Work Phone: Start: 11-19-2020 Magnesium [Mass/volume] in Serum or Plasma [employer] Work Phone: Start: 11-18-2020 Glucose [Mass/volume] in Blood Flako Pinedo Work Phone: Start: 11-18-2020 Glucose [Mass/volume] in Blood Flako Pinedo Work Phone: Start: 11-18-2020 Glucose [Mass/volume] in Blood Flako Pinedo Work Phone: Start: 11-18-2020 Procedure on tissue specimen Leanne Maxwellusman Milianr Work Phone: Start: 11-18-2020 Bacteria identified in Bone by Aerobe culture Leanne Maxwellusman Milianr Work Phone: Start: 11-18-2020 Bacteria identified in Unspecified specimen by Anaerobe culture Leanne Maxwellusman Milianr Work Phone: Start: 11-18-2020 End: 11-18-2020 INCISION AND DRAINAGE FOOT/ANKLE Leannerachana gonzales [place] Work Phone: Start: 11-18-2020 Glucose [Mass/volume] in Blood Flako Pinedo Work Phone: Start: 11-18-2020 Basic metabolic 2000 panel - Serum or Plasma [employer] Work Phone: Start: 11-18-2020 C reactive protein [Mass/volume] in Serum or Plasma Leanne Cherry Work Phone: Start: 11-18-2020 Complete blood count (hemogram) panel - Blood by Automated count [employer] Work Phone: Start: 11-18-2020 Erythrocyte sedimentation rate by Westergren method Leanne Cherry Work Phone: Start: 11-18-2020 Magnesium [Mass/volume] in Serum or Plasma [employer] Work Phone: Start: 11-17-2020 Glucose [Mass/volume] in Blood Flako Pinedo Work Phone: Start: 11-17-2020 aPTT in Blood by Coagulation assay Braeden Conte Work Phone: Start: 11-17-2020 Glucose [Mass/volume] in Blood Flako Pinedo Work Phone: Start: 11-17-2020 Glucose [Mass/volume] in Blood Flako Pinedo Work Phone: Start: 11-17-2020 Aerobic microbial culture Braeden Conte Work Phone: Start: 11-17-2020 Glucose [Mass/volume] in Blood Flako Pinedo Work Phone: Start: 11-17-2020 Basic metabolic 2000 panel - Serum or Plasma [employer] Work Phone: Start: 11-17-2020 Complete blood count with white cell differential, automated Braeden Conte Work Phone: Start: 11-17-2020 Complete blood count with white cell differential, manual Braeden Conte Work Phone: Start: 11-17-2020 Magnesium [Mass/volume] in Serum or Plasma [employer] Work Phone: Start: 11-16-2020 Glucose [Mass/volume] in Blood Flako Pinedo Work Phone: Start: 11-16-2020 Glucose [Mass/volume] in Blood Flako Pinedo Work Phone: Start: 11-16-2020 Glucose [Mass/volume] in Blood Flako Pinedo Work Phone: Start: 11-16-2020 Glucose [Mass/volume] in Blood Flako Pinedo Work Phone: Start: 11-16-2020 Basic metabolic 2000 panel - Serum or Plasma [employer] Work Phone: Start: 11-16-2020 Complete blood count (hemogram) panel - Blood by Automated count [employer] Work Phone: Start: 11-16-2020 Erythrocyte sedimentation rate by Westergren method Braeden Conte Work Phone: Start: 11-16-2020 Magnesium [Mass/volume] in Serum or Plasma [employer] Work Phone: Start: 11-15-2020 Glucose [Mass/volume] in Blood Flako Pinedo Work Phone: Start: 11-15-2020 X-ray of left foot Braeden Conte Work Phone: Start: 11-15-2020 Glucose [Mass/volume] in Blood Flako Pinedo Work Phone: Start: 11-15-2020 Glucose [Mass/volume] in Blood Flako Pinedo Work Phone: Start: 11-15-2020 Ct abdomen & pelvis w/o contrast material [employer] Work Phone: Start: 11-15-2020 Glucose [Mass/volume] in Blood Flako Pinedo Work Phone: Start: 11-15-2020 Basic metabolic 2000 panel - Serum or Plasma [employer] Work Phone: Start: 11-15-2020 Complete blood count (hemogram) panel - Blood by Automated count Edxactlowell Hugo Work Phone: Start: 11-15-2020 Magnesium [Mass/volume] in Serum or Plasma Edxactlowell Arias Work Phone: Start: 11-14-2020 Glucose [Mass/volume] in Blood Flako Pinedo Work Phone: Start: 11-14-2020 Glucose [Mass/volume] in Blood Flako Pinedo Work Phone: Start: 11-14-2020 Glucose [Mass/volume] in Blood Flako Pinedo Work Phone: Start: 11-14-2020 Glucose [Mass/volume] in Blood Flako Pinedo Work Phone: Start: 11-14-2020 Basic metabolic 2000 panel - Serum or Plasma Edx[employer]lowell Arias Work Phone: Start: 11-14-2020 Complete blood count (hemogram) panel - Blood by Automated count [employer]lowell Arias Work Phone: Start: 11-14-2020 Magnesium [Mass/volume] in Serum or Plasma [employer]lowell Arias Work Phone: Start: 11-13-2020 Glucose [Mass/volume] in Blood Flako Pinedo Work Phone: Start: 11-13-2020 Glucose [Mass/volume] in Blood Flako Pinedo Work Phone: Start: 11-13-2020 Doppler ultrasonography of artery of lower limb Jai José Work Phone: Start: 11-13-2020 Gastric emptying imaging study Chuyita baker Work Phone: Start: 11-13-2020 Glucose [Mass/volume] in Blood Flako Pinedo Work Phone: Start: 11-13-2020 Glucose [Mass/volume] in Blood Flako Pinedo Work Phone: Start: 11-13-2020 Basic metabolic 2000 panel - Serum or Plasma [employer] Work Phone: Start: 11-13-2020 Complete blood count (hemogram) panel - Blood by Automated count [employer] Work Phone: Start: 11-13-2020 Magnesium [Mass/volume] in Serum or Plasma [employer]iat [employer] Work Phone: Start: 11-12-2020 Glucose [Mass/volume] in Blood Flako Pinedo Work Phone: Start: 11-12-2020 Glucose [Mass/volume] in Blood Flako Pinedo Work Phone: Start: 11-12-2020 Glucose [Mass/volume] in Blood Flako Pinedo Work Phone: Start: 11-12-2020 COVID-19/INFLUENZA A,B MOLECULAR [employer] Work Phone: Start: 11-12-2020 Glucose [Mass/volume] in Blood Flako Pinedo Work Phone: Start: 11-12-2020 Basic metabolic 2000 panel - Serum or Plasma [employer] Work Phone: Start: 11-12-2020 Complete blood count (hemogram) panel - Blood by Automated count [employer] Work Phone: Start: 11-12-2020 Magnesium [Mass/volume] in Serum or Plasma [employer] Work Phone: Start: 11-11-2020 Magnesium [Mass/volume] in [...] metabolic 2000 panel - Serum or Plasma [employer] Work Phone: Start: 11-11-2020 Complete blood count (hemogram) panel - Blood by Automated count [employer] Work Phone: Start: 11-11-2020 Magnesium [Mass/volume] in Serum or Plasma [employer] Work Phone: Start: 2020 Glucose [Mass/volume] in Blood Flako Pinedo Work Phone: Start: 2020 Glucose [Mass/volume] in Blood Flako Pinedo Work Phone: Start: 2020 Glucose [Mass/volume] in Blood Flako Pinedo Work Phone: Start: 2020 Glucose [Mass/volume] in Blood Flako Pinedo Work Phone: Start: 2020 Basic metabolic 2000 panel - Serum or Plasma [employer] Work Phone: Start: 2020 Complete blood count (hemogram) panel - Blood by Automated count [employer] Work Phone: Start: 2020 Magnesium [Mass/volume] in Serum or Plasma [employer] Work Phone: Start: 2020 End: 2020 Glucose [...] metabolic 2000 panel - Serum or Plasma [employer] Work Phone: Start: 11-09-2020 Complete blood count (hemogram) panel - Blood by Automated count [employer] Work Phone: Start: 11-09-2020 Magnesium [Mass/volume] in Serum or Plasma [employer] Work Phone: Start: 11-09-2020 Glucose [Mass/volume] in Blood Flako Pinedo Work Phone: Start: 11-08-2020 Glucose [Mass/volume] in Blood Flako Pinedo Work Phone: Start: 11-08-2020 Glucose [Mass/volume] in Blood Flako Pinedo Work Phone: Start: 11-08-2020 Glucose [Mass/volume] in Blood Flako Pinedo Work Phone: Start: 11-08-2020 Glucose [Mass/volume] in Blood Flako Pinedo Work Phone: Start: 11-08-2020 Basic metabolic 2000 panel - Serum or Plasma [employer] Work Phone: Start: 11-07-2020 Glucose [Mass/volume] in Blood Flako Pinedo Work Phone: Start: 11-07-2020 Glucose [Mass/volume] in Blood Flako Pinedo Work Phone: Start: 11-07-2020 Aerobic microbial culture Mady Domk a Work Phone: Start: 11-07-2020 Glucose [Mass/volume] in Blood Flako Pinedo Work Phone: Start: 11-07-2020 Complete blood count with white cell differential, automated [employer] Work Phone: Start: 11-07-2020 Complete blood count with white cell differential, manual Alaa [employer] Work Phone: Start: 11-07-2020 Bacteria identified in [...] Phone: Start: 12-06-2019 Ophthalmic examination and evaluation [facility] Plan of Treatment Date Care Activity Detail Author Start: 01-04-2033 DTaP,Tdap and Td Vaccines (2 - Td or Tdap) DTaP,Tdap and Td Vaccines (2 - Td or Tdap) [facility] [employer] [facility] Start: 01-04-2033 Urine microalbumin profile DTaP,Tdap,Td Vaccine (2 - Td or Tdap) [facility] Start: 05-01-2029 Lipid panel Lipid Screening [facility] Start: 05-01-2027 Diabetes Screening Diabetes Screening [facility] Start: 08-13-2026 Adult BMI Screening Adult BMI Screening [facility] Start: 08-10-2026 Adult BMI Screening Adult BMI Screening [facility] Start: 08-10-2026 Depression Screening Depression Screening [facility] Start: 08-10-2026 Statin Use: Cardiovascular [facility]atin Use: Cardiovascular [facility] Start: 08-10-2026 Statin Use: Diabetic Statin Use: Diabetic [facility] Start: 08-10-2026 Tobacco Screening Tobacco Screening [facility] Start: 07-16-2026 Adult BMI Screening Adult BMI Screening [facility] Start: 07-05-2026 Adult BMI Screening Adult BMI Screening [facility] Start: 07-05-2026 Depression Screening Depression Screening [facility] Start: 07-05-2026 Tobacco Screening Tobacco Screening [facility] Start: 05-10-2026 Adult BMI Screening Adult BMI Screening [facility] Start: 05-10-2026 Depression Screening Depression Screening [facility] Start: 05-10-2026 Statin Use: Cardiovascular Statin Use: Cardiovascular [facility] Start: 05-10-2026 Statin Use: Diabetic Statin Use: Diabetic [facility] Start: 05-10-2026 Tobacco Screening Tobacco Screening [facility] Start: 04-26-2026 Adult BMI Screening [...] Start: 11-09-2025 Glaucoma screening Diabetes: Retinopathy Screening [facility] Start: 09-21-2025 End: 09-21-2025 Clinical Support 09/21/2025 8:30 AM EDT Clinical Support [facility] [address] [place] [address] [place] [phone] Art Freeman DO [address] [place] [address] [facility] Start: 08-30-2025 End: 08-30-2025 Clinical Support 08/30/2025 9:30 AM EDT Clinical Support [facility] [address] [place] [address] [facility] Start: 08-13-2025 End: 08-13-2025 Clinical Support 08/13/2025 8:00 AM EDT Clinical Support [facility] [address] [place] [address] [facility] Start: 08-10-2025 End: 08-10-2025 Patient encounter procedure 08/10/2025 10:00 AM EDT Office Visit [facility] [address] [facility] [place] [phone] Art Freeman, [address], [facility] [address], [place] [address] [facility] Start: 07-23-2025 Influenza vaccination [facility] Start: 07-16-2025 End: 07-16-2025 Clinical Support 07/16/2025 8:00 AM EDT Clinical Support [facility] [address] [facility] [place] [address] [facility] Start: 07-11-2025 Hemoglobin A1c measurement HbA1C [facility] Start: 07-09-2025 End: 07-09-2025 [facility] Start: 05-22-2025 End: 05-22-2025 Admission to same day surgery center 05/22/2025 2:00 PM EDT [facility] General Surgery [address] [address] [address] [place]o, [place] [address] 4wk post op General Surgery Comment on above: 4wk post op Start: 05-10-2025 End: 05-10-2025 Clinical Support 05/10/2025 9:30 AM EDT Clinical Support [facility] [address] [place] [address] [place] [phone] Art Freeman, DO [address] [place], [place] [id number] [facility] Start: 05-09-2025 End: 05-09-2025 Patient encounter procedure 05/09/2025 10:40 AM EDT Office Visit [facility] W[facility] [address] [place] [phone] Kaitlynn Sherri Gurvinder, EDGE BE[employer]ER[employer]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 [address] [id number] [facility] Wound [facility] Start: 05-01-2025 Hepatitis B screening Urine Albumin:Creatinine Ratio [facility] Start: 05-01-2025 Urine screening for protein Urine Microalbumin [facility] Start: 04-26-2025 End: 04-26-2025 Patient encounter procedure 04/26/2025 2:00 PM EDT Office Visit [facility] [address] [place] [address] [place] [phone] Art Freeman, [address], [facility] [address], [facility] [place] [address] [facility] Start: 04-26-2025 End: 04-26-2026 XR Lumbar spine Views W right bending and W left bending X-ray spine lumbar complete including flexion and extension 6+ views Imaging Routine Chronic midline low back pain without sciatica Expected: 04/26/2025, Expires: 04/26/2026 [facility] Work Phone: Comment on above: Expected: 04/26/2025, Expires: Start: 04-25-2025 End: 04-25-2025 Patient encounter procedure 04/25/2025 7:30 AM EDT Appointment [facility] [address] [place] [address] Jerome Del [place]o, [place] [address] Diabetic gastroparesis (HCC) [facility] Comment on above: Diabetic gastroparesis (HCC) Start: 04-24-2025 End: 04-24-2025 Patient encounter procedure 04/24/2025 10:30 AM EDT Office Visit [facility] [address] [place] [address] Sherri Garcia, 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 [address] [place] [address] [facility] Start: 04-11-2025 End: 04-11-2025 Patient encounter procedure 04/11/2025 10:40 AM EDT Office Visit [facility] [address] [place] [address] Sherri Garcia, ED[employer] BE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 [address] [place] [address] [facility] Start: 04-10-2025 End: 04-10-2025 Patient encounter procedure Gastroenterology Comment on above: New gp consult/empties Start: 11-22-2024 Medicare Advantage Annual Wellness Visit Medicare Advantage Annual Wellness Visit [facility] Start: 07-23-2024 Covid-19 Vaccine ( season) Covid-19 Vaccine ( season) [facility] Start: 07-23-2024 Influenza vaccination Influenza Vaccine (#1) [facility] Start: 05-21-2024 Influenza vaccination Influenza Vaccine (#1) [facility] Comment on above: Postponed from 07/23/2023 (Patient Refus ed) Start: 02-03-2024 [facility] Start: 01-21-2024 Screening for malignant neoplasm of colon Colorectal Cancer Screening [facility] Comment on above: Postponed from 1966 (Other Medical Reasons) Start: 01-06-2024 End: 01-06-2024 Patient encounter procedure 01/06/2024 4:30 PM EST Office Visit [facility] [address] [place] [address] Cheng Staples NP [address] [place] [address] Arrived [facility] Comment on above: Arrived Start: 10-20-2023 Hemoglobin A1c measurement Diabetes: Hemoglobin A1C [facility] Start: 04-17-2022 Diabetic foot examination Diabetic Foot Exam [facility] Start: 2021 Prostate specific antigen measurement Prostate Cancer Screening Discussion [facility] Start: 05-06-2021 HbA1c (Bld) [Mass fraction] A1C [facility] Start: 03-06-2021 End: 03-06-2021 Office Visit 03/06/2021 Office Visit Wound Care Marcella Bell MD [address] [place] [address] [phone] [facility] Start: 02-14-2021 End: 02-14-2021 Office Visit 02/14/2021 Office Visit Wound Care Leanne Cherry, ELIE [address] [place] [address] [phone] [facility] Start: 02-06-2021 End: 02-06-2021 Office Visit 02/06/2021 Office Visit Wound Care Marcella Bell MD [address] [place] [address] [phone] [facility] Start: 01-24-2021 End: 01-24-2021 Office Visit 01/24/2021 Office Visit Wound Care Leanne Cherry DPM [address] [place] [address] [phone] [facility] Start: 01-09-2021 End: 01-09-2021 Office Visit [facility] Start: 12-27-2020 End: 12-27-2020 Office Visit 12/27/2020 Office Visit Wound Care Leanne Cherry, DPMeghann [address] [place] [address] [phone] [facility] Start: 12-19-2020 End: 12-19-2020 Office Visit 12/19/2020 Office Visit Wound Care Marcella Bell MD [address] [place] [address] [phone] [facility] Start: 12-06-2020 Ophthalmic examination and evaluation Ophthalmology Exam [facility] Start: 07-23-2020 Influenza vaccination given Sequential Influenza Vaccine (#1) [facility] Start: 2016 Administration of herpes zoster vaccine Zoster Vaccines (1 of 2) [facility] Start: 2016 Administration of varicella zoster vaccine Zoster (Shingles) Vaccine (1 of 2) [facility] Start: 2016 Pneumococcal Vaccine: 50+ (1 of 1 - PCV) Pneumococcal Vaccine: 50+ (1 of 1 - PCV) [facility] Start: 2016 Screening for malignant neoplasm of colon [facility] Start: 2016 Shingrix Vaccine (1 of 2) Shingrix Vaccine (1 of 2) [facility] Start: 2011 Prostate specific antigen measurement Prostate Cancer Screening Discussion [facility] Start: 2011 Screening for malignant neoplasm of colon [facility] Start: 1985 Hepatitis B Vaccine (1 of 3 - 19+ 3-dose series) Hepatitis B Vaccine (1 of 3 - 19+ 3-dose series) [facility] Start: 1985 Pneumococcal Vaccine: 50+ (1 of 2 - PCV) Pneumococcal Vaccine: 50+ (1 of 2 - PCV) [facility] Start: 1985 Urine screening for protein Diabetes: Urine Protein Screening [facility] Start: 1984 Adult BMI Follow Up Plan Adult BMI Follow Up Plan [facility] [employer] [facility] Start: 1984 Annual PCP Team Chronic Disease Visit Annual PCP Team Chronic Disease Visit [facility] Start: 1984 Anxiety Screening Anxiety Screening [facility] Start: 1984 Depression Screening Depression Screening [facility] Start: 1984 Hepatitis B surface antibody level LDL Cholesterol [facility] Start: 1984 Hepatitis C antibody, confirmatory test Hepatitis C Screening [facility] Start: 1984 Hepatitis C screening Hepatitis C Screening [facility] Start: 1984 HIV screening HIV Screening [facility] Start: 1982 COVID-19 Vaccine (1 of 2) COVID-19 Vaccine (1 of 2) [facility] Start: 1981 HIV screening HIV Screening [facility] Start: 1978 Adolescent depression screening assessment [facility] Start: 1976 Albumin DL <= 20 mg/L (U) [Mass/Vol] Urine Microalbumin [facility] Start: 1976 Diabetic foot examination [facility] Start: 1976 Glaucoma screening Dilated Retinal Exam [facility] Start: 1976 Ophthalmic examination and evaluation Ophthalmology Exam [facility] Start: 1969 History and physical examination, annual for health maintenance Wellness Visit [facility] Start: 1966 Glaucoma screening Diabetic Ophthalmology Exam [facility] Start: 1966 Medicare Annual Wellness (AWV) Medicare Annual Wellness (AWV) [facility] Start: 1966 Prostate specific antigen measurement PSA Level [facility] Start: 1966 Screening for malignant neoplasm of colon [facility] Start: 1966 Tetanus vaccination Tetanus: Every 10yrs [facility] End: 11-05-2020 12 lead ECG ECG 12 Lead ECG Routine Once for 1 Occurrences starting 11/05/2020 until 11/05/2020 [facility] Comment on above: Once for 1 Occurrences starting 11/05/20 until 11/05/2020 Aerobic microbial culture Wound Aerobic Culture Microbiology Routine Subacute osteomyelitis of left foot (HCC) Charcot's joint of ankle, unspecified laterality 12/27/2020 12:24 PM EST [facility] Bacteria identified Aer cx Nom (Bone) [facility] Bacteria identified Anaer cx Nom (Unsp spec) [facility] End: 04-26-2026 CBC W Auto Differential panel - Blood CBC auto differential Lab Routine Type 2 diabetes mellitus with foot ulcer, with long-term current use of insulin ([facility]) 1 Occurrences starting 04/26/2025 until 04/26/2026 [facility] [employer] [facility] Comment on above: 1 Occurrences starting 04/26/2025 until 04/26/2026 End: 04-26-2026 Comprehensive metabolic 2000 panel - Serum or Plasma Comprehensive metabolic panel Lab Routine Type 2 diabetes mellitus with foot ulcer, with long-term current use of insulin ([facility]) Fatty liver disease, nonalcoholic 1 Occurrences starting 04/26/2025 until 04/26/2026 [facility] Comment on above: 1 Occurrences starting 04/26/2025 until 04/26/2026 CT angiography of head [facility] CT angiography of ne ck vessels [facility] End: 05-10-2026 Cyanocobalamin vitamin b-12 Vitamin B12 Lab Routine Fatigue, unspecified type 1 Occurrences starting 05/10/2025 until 05/10/2026 [facility] Comment on above: 1 Occurrences starting 05/10/2025 until 05/10/2026 End: 12-19-2021 DRESSING Dressing Procedures Routine Subacute osteomyelitis of left foot (HCC) 1 Occurrences starting 12/19/2020 until 12/19/2021 [facility] Comment on above: 1 Occurrences starting 12/19/2020 until 12/19/2021 End: 01-09-2022 DRESSING Dressing Procedures Routine Subacute osteomyelitis of left foot (HCC) 1 Occurrences starting 01/09/2021 until 01/09/2022 [facility] Comment on above: 1 Occurrences starting 01/09/2021 until 01/09/2022 End: 02-06-2022 DRESSING Dressing Procedures Routine Foot abscess, left 1 Occurrences starting 02/06/2021 until 02/06/2022 [facility] Comment on above: 1 Occurrences starting 02/06/2021 until 02/06/2022 End: 04-26-2026 Hemoglobin A1c/Hemoglobin.total in Blood Hemoglobin A1c Lab Routine Type 2 diabetes mellitus with foot ulcer, with long-term current use of insulin ([facility]) 1 Occurrences starting 04/26/2025 until 04/26/2026 [facility] [employer] [facility] Comment on above: 1 Occurrences starting 04/26/2025 until 04/26/2026 End: 07-05-2026 Lipid panel Lipid panel Lab Routine Type 2 diabetes mellitus with foot ulcer, with long-term current use of insulin (CMS-HCC) Hyperlipidemia, unspecified hyperlipidemia type 1 Occurrences starting 07/05/2025 until 07/05/2026 [employer] Work Phone: Comment on above: 1 Occurrences starting 07/05/2025 until 07/05/2026 End: 05-10-2026 Magnesium [Mass/volume] in Serum or Plasma Magnesium Lab Routine Fatigue, unspecified type 1 Occurrences starting 05/10/2025 until 05/10/2026 [employer] Comment on above: 1 Occurrences starting 05/10/2025 until 05/10/2026 Patient Education [facility] Work Phone: Patient referral [facility] Work Phone: End: 05-10-2026 Prostatic specific antigen screen Prostatic specific antigen screen Lab Routine Encounter for screening for malignant neoplasm of prostate 1 Occurrences starting 05/10/2025 until 05/10/2026 [employer] Work Phone: Comment on above: 1 Occurrences starting 05/10/2025 until 05/10/2026 Radionuclide gastric emptying study [facility] End: 05-10-2026 Testosterone, Total and Free, S Testosterone, Total and Free, S Lab Routine Fatigue, unspecified type 1 Occurrences starting 05/10/2025 until 05/10/2026 [employer] Comment on above: 1 Occurrences starting 05/10/2025 until 05/10/2026 End: 05-10-2026 Vitamin D 25 hydroxy Vitamin D 25 hydroxy Lab Routine Fatigue, unspecified type 1 Occurrences starting 05/10/2025 until 05/10/2026 [employer] Comment on above: 1 Occurrences starting 05/10/2025 until 05/10/2026 Wound Anaerobic Culture Wound An aerobic Culture Microbiology Routine Subacute osteomyelitis of left foot (HCC) Charcot's joint of ankle, unspecified laterality 12/27/2020 12:24 PM EST [facility] End: 01-24-2022 X-ray of left foot XR Foot Left 3+ Views (Standard) Imaging Routine Subacute osteomyelitis of left foot (HCC) 1 Occurrences starting 01/24/2021 until 01/24/2022 [facility] Comment on above: 1 Occurrences starting 01/24/2021 until 01/24/2022 X-ray of left foot XR Foot Left 3+ Views (Standard) Imaging Routine Subacute osteomyelitis of left foot (HCC) 01/24/2021 2:27 PM EST [facility] Immunizations Immunization Date Immunization Notes Care Provider Emeli cardenas 01-04-2023 tetanus toxoid, redu sunny diphtheria toxoid, and acellular pertussis vaccine, adsorbed Cheng Staples [employer] Work Phone: [facility] Payers Date Payer Category Payer Self-pay [id number] 2023 Medicare (Managed Care) [employer] AL DICARE [id number] 2023 Medicare HMO [employer] MEDICARE [id number] 2023 Private Health Insurance [id number] 2.16.840.1.838104.19 2023 Unknown [id number] .[id number] 2023 Unknown [employer] [id number] 2023-Present [address] [place] [address] [id number]. 7.3.580646.315 2021 Medicare 2019 Medicare [id number] 2019 Medicare [id number] 1.2.840.905180.1.13.385.2. [id number] 1966 Unknown [id number] 2.16.840.1.510923.3.579.2. 647 1966 Unknown [id number] 2.16.840.1.201661.3.579.2. 903 1966 Unknown [id number] 2.16.840.1.209458.3.579.2. 903 1966 Unknown [id number] 2.16.840.1.501319.3.579.2. 903 1966 Unknown [id number] 2.16.840.1.444310.3.579.2. 903 1966 Unknown [id number] 2.16.840.1.844817.3.579.2. 903 1966 Unknown [id number] 2.16.840.1.036317.3.579.2. 903 1966 Unknown [id number] 2.16.840.1.504299.3.579.2. 903 1966 Unknown [id number] 2.16.840.1.639573.3.579.2. 903 1966 Unknown [id number] 2.16.840.1.135243.3.579.2. 903 1966 Unknown [id number] 2.16.840.1.861456.3.579.2. 903 1966 Unknown [id number] 2.16.840.1.065486.3.579.2. 903 1966 Unknown [id number] 2.16.840.1.195072.3.579.2. 903 1966 Unknown [id number] 2.16.840.1.666664.3.579.2. 196 1966 Unknown [id number] 2.16.840.1.790738.3.579.2. 175 1966 Unknown [id number] 2.16.840.1.050339.3.579.2. 593 1966 Unknown [id number] 2.16.840.1.446713.3.579.2. 1259 1966 Unknown [id number] 2.16.840.1.958678.3.579.2. 1259 1966 Unknown [id number] 2.16.840.1.099053.3.579.2. 1259 1966 Unknown [id number] 2.16.840.1.610183.3.579.2. 1286 1966 Unknown [id number] 2.16.840.1.755887.3.579.2. 1286 1966 Unknown [id number] 2.16.840.1.008728.3.579.2. 1286 1966 Unknown [id number] 2.16.840.1.158112.3.579.2. 1286 1966 Unknown [id number] 2.16.840.1.015812.3.579.2. 1286 1966 Unknown [id number] 2.16.840.1.460819.3.579.2. 1286 1966 Unknown [id number] 2.16.840.1.452774.3.579.2. 1286 1966 Unknown [id number] 2.16.840.1.279126.3.579.2. 1286 1966 Unknown [id number] 2.16.840.1.440720.3.579.2. 1286 1966 Unknown [id number] 2.16.840.1.566475.3.579.2. 1286 1966 Unknown [id number] 2.16.840.1.802455.3.579.2. 1286 1966 Unknown [id number] 2.16.840.1.819808.3.579.2. 1286 1966 Unknown [id number] 2.16.840.1.554064.3.579.2. 1286 1966 Unknown [id number] 2.16.840.1.143936.3.579.2. 1286 1966 Unknown [id number] 2.16.840.1.004049.3.579.2. 1286 1959 Medicare [id number] 2.16.840.1.318328.19 Unknown [id number] Unknown [id number] 2.16.840.1.784318.3.579.2. 531 Unknown [id number] 2.16.840.1.214914.3.579.2. 531 Unknown [id number] 2.16.840.1.286192.3.579.2. 531 Social History Date Type Detail Facility Start: 12-22-2019 End: 11-19-2020 Tobacco smoking status [facility] Never smoker [facility] Start: 12-22-2019 End: 11-19-2020 Tobacco use and exposure Never used [facility] Start: 11-19-2020 End: 02-06-2021 Alcohol intake Current drinker of alcohol (finding) [facility] Start: 11-06-2020 Alcohol [facility] Start: 1965 Sex Assigned At Not [facility] file [facility] Exposure to SARS-CoV -2 (event) Not sure [facility] Start: 02-07-2021 End: 11-02-2023 Sex Assigned At [employer] Other Start: 01-06-2024 End: 08-10-2025 Alcohol intake Ex-drinker (finding) [facility] Start: 02-07-2021 End: 11-02-2023 History of Social function [facility] Start: 11-02-2023 Alcohol Comment pop-4 cups daily [facility] Start: 1965 Sex Assigned At Male F [facility] Start: 02-03-2024 Tobacco smoking stat [facility] Ex-smoker (finding) [facility] Tobacco smoking stat [facility] Tobacco smoking consumption unknown [facility] National Score (1-10 0), lower number is lower risk 87 [facility] Do you belong to any clubs or organizations such as shinto groups, unions, fraternal or athletic groups, or school groups? No [facility] Are you now , , , , never or living with a partner? [facility] How often to you hav e a drink containing alcohol? Monthly or less [facility] How often do you hav e 6 or more drinks on 1 occasion? Never [facility] How hard is it for [...] System Start: 03-21-2021 Alcohol Comment quit 2005 [facility] Start: 06-27-2015 Sex Male (finding) [facility] NEGATED: Highlighted rowStart: NINF History of tobacco use Passive smoker [facility] Medical Equipment Procedure Code Equipment Code Equipment Origin al Text Equipment Identifier Dates [id number] Start: 08-03-2021 End: 04-26-2025 Cmnt Bn Bio 40gm Rpl [id number] - [id number] Start: 02-07-2021 Lens Iol Ultrase rt 18.5d - [id number] - [id number] Start: 12-28-2019 1 Pen Needle by miscellaneous route in the morning and 1 Pen Needle at noon and 1 Pen Needle in the evening and 1 Pen Needle before bedtime. [id number] Start: 04-26-2025 End: 05-10-2025 1 strip by other route 4 (four) times a day before meals and nightly. [id number] Start: 04-26-2025 End: 05-10-2025 1 strip by other route 4 (four) times a day before meals and nightly. [id number] Start: 05-10-2025 End: 05-16-2025 1 strip by other route 4 (four) times a day before meals and nightly. [id number] Start: 05-16-2025 End: 07-05-2025 1 strip by other route 4 (four) times a day before meals and nightly. [id number] Start: 07-05-2025 End: 07-06-2025 1 strip by other route 3 (three) times a day. [id number] Start: 07-06-2025 Goals Date Patient Goal Desired Activity /State Personal health goal Comment on above: Formatting of this n ote might be different from the original. Evaluation of progress towards goal: [facility] facility Clinical Notes 08-25-2022 to 08-30-2025 Telephone Encounter - Phu Ocasio MA - 08/30/2025 1:02 PM EDTTelephone Encounter - Phu Ocasio MA - 08/30/2025 1:02 PM EDTTelephone Encounter - Sangeetha Ivory - 08/27/2025 2:12 PM EDT Note Date & Type Note Facility 08-30-2025 Miscellaneous Notes The patient was a no show today. [employer]communication [employer] Repairer OPAL requesting patient call back to schedule another appointment. documented in this encounter [facility] 08-30-2025 Telephone encounter Note The patient was a no show today. [employer] OPAL requesting patient call back to schedule another appointment. [facility] 08-27-2025 Miscellaneous Notes Patient presenting to office requesting refill of amox/k clav 875-125 MG tab to [facility]. Please advise Spoke with patient, he states he would like a refill for this medication. Spoke with him and he states he is still having symptoms Please advise? Prescription for Augmentin 875/125 mg 1 tablet twice daily for 14 days sent into [place], [place] documented in this encounter [facility] 08-27-2025 Telephone encounter Note Patient presenting to office requesting refill of amox/k clav 875-125 MG tab to [facility]. Please advise [facility] 08-27-2025 Telephone encounter Note Spoke with patient, he states he would like a refill for this medication. Spoke with him and he states he is still having symptoms Please advise? 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 [facility] 08-22-2025 Radiology Diagnostic study note [facility] [place] [address] [place] [address] CT Scan Report Signed Patient: More Kingsley MR#: [id number] : 1965 Acct:[id number] Age/Sex: 59 / M ADM Date: 5 Loc: CT Room: Type: [facility] Attending Dr: Cathy Leggett [employer] Copies to: Cathy Leggett APRN~ Ordering Provider: Cathy Leggett APRN Date of Service: 08/22/25 CT/CT angio head: I65.23 - Occlusion and stenosis of bilateral carotid ney... ([id number]) CT/CT angio neck: I65.23 - Occlusion and [...] Kidd M.D. 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 Patient reported to PCP that he is taking Novolon N 38 units AM and 40 units PM. More Jd Ickes Jr. is a 59 y.o. (White or [1]) male who presents for a follow up MTM visit of Type 2 Diabetes Mellitus. More Kingsley Jr. is accompanied by his no relatives. Patient recently saw PCP for follow up where insulin was titrated. AM readings are highly variable with lowest noted at 77. Patient reports he has been too low in the AM. One additional readings of 86. However, all other readings have been >190. Prior to dinner readings are exceptionally uncontrolled. PAP was approved for Lantus and Novolog. Patient was instructed to call [facility] for instructions transitioning insulin. To this request patient stated No, my sugar is fine when I have that insulin . However, A1C has been elevated for years. At last provider visit, Ozempic was also sent to the pharmacy. Patient reports copay of >$200. We will send PAP for this as well. Previously discussed with patients history of gastroparesis will need to proceed with caution. Patient was instructed to call [facility] when this medication arrives. Pertinent current medications include: Novolin N 38 units AM and 40 units PM Pertinent previous medications include: Metformin- unsure for discontinuation, patient reports that this doesn't work for me , history of CKD Humalog- patient refusal, unsure of reason Lantus 30 units in the morning and nightly Novolog U-100 70-150 0 units 151-174 2 units 175-199 4 units 200-224 6 units 225-249 8 units 250-274 10 units 275-299 12 units 300-350 14 units >350 16 units and call provider PERTINENT PAST MEDICAL HISTORY: Chronic Kidney Disease: Yes Atherosclerotic Cardiovascular Disease (ASCVD): No Heart Failure with Reduced/Preserved Ejection Fraction: No Pancreatitis/Gastroparesis: Yes, gastroparesis Medullary Thyroid Carcinoma: No Bariatric Surgery: No Genitourinary Fungal Infections: No DIET Breakfast: skips breakfast, only eats two meals per day Lunch- 11:30: eggs and toast Dinner 5:30: eggs, toast, hamburger, soup Snacks: Pringles, Funions, chips, bagel, peanut butter Drinks: Regular Koolaid, Milk, has been trying to move away from sodas- plain water upsets the stomach . Continues with high carb diet. Discussed need to focus on protein/vegetable intake. Patient notes he does not like vegetables. EXERCISE: Limited mobility due to ulcer on the foot, amputation of toes and below the knee amputation. Patient reports he does not exercise. TESTING Home blood glucose: Patient checks blood glucose 2x daily. Blood Glucose Device Brand: Accu-check Diabetic Supplier: [facility] in [place] Retail Date FBG AC PPG 08/13 237 08/11 197 298 08/10 197 346 08/09 265 08/07 86 210 08/06 195 316 08/05 237 294 Glucose remains primarily uncontrolled Objective OBJECTIVE: Vitals: BP 115/72 Pulse 94 Wt 112.9 kg (249 lb) BMI 37.31 kg/m Caffeine intake within 60 minutes: No Height: Weight: Wt Readings from Last 3 Encounters: 08/13/25 112.9 kg (249 lb) 08/10/25 113.4 kg (250 lb) 07/16/25 113.8 kg (250 lb 14.1 oz) Weight Trend: stable. BMI: Body mass index is 37.31 kg/m . A1c: Lab Results Component Value Date HGBA1C 11.5 (H) 05/02/2025 SCr: Lab Results Component Value Date CREATININE 1.61 (H) 05/02/2025 GFR: GFR MDRD Af Amer Date Value Ref Range Status 04/17/2022 53 (L) >59 ml/min/1.73sq.m Final GFR MDRD Non Af Amer Date Value Ref Range Status 04/17/2022 44 (L) >59 ml/min/1.73sq.m Final UACR: @LABLAST(albcreatra) No results found for: EXTPOCALB No results found for: EXTUMICOR Vitamin B12 Level: Lab Results Component Value Date [id number] 1,009 (H) 05/16/2025 Lipid Management: Lab Results Component Value Date CHOL 198 07/16/2025 HDL 34 (L) 07/16/2025 LDLCALC 128 07/16/2025 TRIG 179 (H) 07/16/2025 The 10-year ASCVD risk score (Kenrick VILLAGRAN, et al., 2019) is: 21.7% Values used to calculate the score: Age: 59 years Sex: Male Is Non- : No Diabetic: Yes Tobacco smoker: No Systolic Blood Pressure: 132 mmHg Is BP treated: Yes HDL Cholesterol: 34 mg/dL Total Cholesterol: 198 mg/dL ADA Diabetes Quality Measures: Comments: UACR needed - A1c: Up to date 11.5% on 04/26/2025 - Kidney Screening: - SCr: Up to date 05/02/2025 - UACR: Overdue 2017 - Lipid Screening: Up to date 07/16/25; LDL 128 - VitB12: Up to date: 05/16/2025 (1009) - Eye Exam: Up to date 05/2025 - Foot Exam: Up to date 04/26/2025 - Dental Exam: Overdue encouraged patient to schedule appointment - Tobacco User: No - On Aspirin: No - On LUANA/ARB: Yes, lisinopril - On Statin: Yes, atorvastatin There is no immunization history on file for this patient. ASSESSMENT/PLAN: ASSESSMENT: Type 2 Diabetes Mellitus: uncontrolled as evidenced by hemoglobin A1c of 11.5% on 05/02/2025. Glucose is exceptionally uncontrolled Titrate NPH 15% Patient instructed to call when basal/bolus insulin arrives Start SGLT2i and GLP Patient declines CGM. 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 Encouraged him to reconsider for safety. Patient declines LDL doubled from last year. Anticipate being off atorvastatin to be contributing. 80 mg daily ordered by PCP at last visit A1C is due, however, evident it will remain highly uncontrolled. Favor to post pone until progress made with lowering glucose Discussed fasting goal 70-130 and PPG goal <180. Patient notes he does not agree with these goals. We will continue to revisit and encourage him to make progress toward lower glucose EDUCATION / ADA MEASURES: Reviewed general diabetes pathophysiology and management Reviewed A1C and blood glucose goals Reviewed signs and symptoms of hyperglycemia/hypoglycemia and how to treat Encouraged to increase aerobic exercise Encouraged to obtain eye/foot/dental exam(s) Provided educational handouts Recommended a health maintenance visit with PCP Requested to obtain recommended labs MEDICATION PLAN: Start Ozempic 0.25 mg weekly when arrives via PAP GLP therapy planned for weight loss, glycemic, and renal benefits. Patient does have a history of gastroparesis and risks were discussed at last OV with him. Will need monitored closely. Instructed patient to call PPMM when this arrives. Start Farxiga 10 mg daily Patient would benefit from renal and glycemic benefits of SGLT2i. No known contraindications to therapy. Instructed patient to call PPMM when this arrives. Discussed it will ship to his home Increase NPH to 42 units AM and 40 units PM 15% dose increase to AM dosing due to exceptionally high pre-dinner readings Call [facility] when Lantus and Novolog arrive at PCP office for instruction with dosing Patient stated to [facility] that he did not need to do this as his glucose is well controlled when he has these insulins. Explained his A1C has not been controlled in some time and to please notify PPMM so we can safely adjust his dosing. Patient non-committal to this. 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 Roxy Lenz [facility] 08/13/25 1203 documented in this encounter [employer] 08-10-2025 History of Present illness Narrative Images from the original note were not included. [facility] [address] [place] [address] Patient: More Kingsley Jr. Date of : 1965 Encounter Date: 08/10/2025 Subjective: Chief Complaint Chief Complaint Patient presents with Follow-up History of Present Illness More Kingsley Jr. is a 59 y.o. male, established patient, that presents to the office for 3 month follow up for HTN, and diabetes. History provided by patient. Hypertension Three-month follow-up for hypertension. Patient's current medications include hydrochlorothiazide 12.5 mg 1 tablet daily, lisinopril 10 mg 1 tablet daily. Patient states that he has been taking his medications. He denies any episodes of chest pain, shortness of breath, dizziness, lightheadedness, headache and vision changes. Diabetes He presents for his follow-up diabetic visit. He has type 2 diabetes mellitus. Disease course: Last Hemoglobin From 05/02/25 was 11.5% (He states that on a couple of occasions blood sugars decreased to below 100 mg/dL. Patient states that he notices changes in vision which trigger him to check blood sugars). Although prescriptions for insulin glargine and NovoLog flex pen prescribed patient states that he has been unable to afford those medications and has been taking Novolin N 30 6 units in the morning and 38 units in the evening. Review of Systems Review of Systems Vital Signs BP 132/78 (BP Site: Left Arm, BP Postition: Sitting) Pulse 82 Temp 36.4 C (97.6 F) (Oral) Wt 113.4 kg (250 lb) SpO2 96% BMI 37.46 kg/m Physical Exam Physical Exam General clothing unkempt with blood stains on anterior left knee Cardiovascular heart regular rate and rhythm S1-S2 no murmur, right lower extremity without anterior swelling Respiratory lungs clear to auscultation bilaterally, no wheezes, no rales, no rhonchi GI positive bowel sounds, soft, nontender Past Medical, Family, Surgery and Social History Past Medical History: Diagnosis Date Acid reflux Anemia Arthritis Cataract right lens implant Charcot's joint 02/2021 left foot Chronic osteomyelitis of foot ([facility]) 02/2021 left/with draining sinus Dental disease poor repair Diabetes mellitus type 2, controlled ([facility]) 1999 Hyperlipidemia Hypertension PICC (peripherally inserted central catheter) flush 02/2021 Visual impairment glasses Past Surgical History: Procedure Laterality Date AMPUTATION SYMES LOWER EXTREMITY Left 04/18/2021 Performed by Chan Brooke DPM at [facility] AMPUTATION TOEMID FOOT OSTEOTOMY ACHILLES TENOTOMY Left 02/07/2021 Performed by Chan Brooke DPM at [facility] ASPIRATION BONE MARROW BIOPSY BONE MARROW (BONE BIOPSY) Left 03/24/2021 Performed by Chan Brooke DPM at [facility] CLOSURE WOUND LOWER EXTREMITY (DELAYED PRIMARY CLOSURE) Left 03/24/2021 Performed by Chan Brooke DPM at [facility] DEBRIDEMENT FOOT/ANKLE Left 02/07/2021 Performed by Chan Brooke DPM at [facility] EXOSTECTOMY FOOT Right 09/01/2021 Performed by Chan Brooke DPM at [facility] SURGERY PHACO KELMAN I IMPLANT INTRAOCULAR LENS Right 12/28/2019 Performed by Debra Trejo MD at [facility] REMOVAL HARDWARE FOOT/TOE, AND REMOVAL ANTIBIOTIC SPACER Left 03/24/2021 Performed by Chan Brooke DPM at [facility] SURGERY TONSILLECTOMY as child Family History Problem [...] and 10 to the basement. Worked at [employer]. Now disabled Social Drivers of Health Financial Resource Strain: Low Risk (01/06/2024) Received from [facility] Overall Financial Resource Strain (CARDIA) Difficulty of Paying Living Expenses: Not hard at all Food Insecurity: Food Insecurity Present (08/10/2025) Hunger Screening Food Insecurity - Worry: Sometimes True Food Insecurity - Inability: Sometimes True Transportation Needs: Unmet Transportation Needs (01/06/2024) Received from [facility] PRAPARE - Transportation Lack of Transportation (Medical): Yes Lack of Transportation (Non-Medical): Yes Physical Activity: Inactive (01/06/2024) Received from [facility] Exercise Vital Sign Days of Exercise per Week: 0 days Minutes of Exercise per Session: 0 min Stress: Stress Concern Present (01/06/2024) Received from [facility] [place] [place] [facility] Occupational [employer] - Occupational Stress Questionnaire Feeling of Stress : Very much Social Connections: Socially Isolated (01/06/2024) Received from [facility] Social Connection and Isolation Panel [NHANES] Frequency of Communication with Friends and Family: Never Frequency of Social Gatherings with Friends and Family: Never Attends Cheondoism Services: Never Active Member of Clubs or Organizations: Yes Attends Club or Organization Meetings: Never Marital Status: Interpersonal Safety: Unknown (01/13/2024) Received from [facility] Safety & Environment Fear of Current [...] other route 3 (three) times a day. blood sugar diagnostic (ACCU-CHEK GUIDE TEST STRIPS) strip 1 strip by other route 3 (three) times a day. blood-glucose meter kit Use as instructed cholecalciferol, vitamin D3, 2,000 units capsule Take 1 capsule (2,000 Units total) by mouth in the morning. clopidogreL (PLAVIX) 75 mg tablet Take 1 tablet (75 mg total) by mouth. collagenase (SantyL) ointment Apply 1 Application topically in the morning. dorzolamide (TRUSOPT) 2 % ophthalmic solution Administer 1 drop to the right eye in the morning and 1 drop before bedtime. Indications: increased pressure in the eye. doxycycline (MONODOX) 100 mg capsule TAKE 1 CAPSULE BY MOUTH TWICE DAILY FOR 14 DAYS famotidine (PEPCID) 40 mg tablet Take 1 tablet (40 mg total) by mouth in the morning and 1 tablet (40 mg total) before bedtime. latanoprost (XALATAN) 0.005 % ophthalmic solution Administer 1 drop into the left eye once daily at bedtime. INSTILL 1 DROP INTO LEFT EYE AT BEDTIME No current facility-administered medications on file prior to visit. Labs and Imaging Lab Results Component Value Date WBC 8.7 05/02/2025 HGB 14.1 05/02/2025 HCT 42.3 05/02/2025 PLT 298 05/02/2025 CHOL 198 07/16/2025 TRIG 179 (H) 07/16/2025 HDL 34 (L) 07/16/2025 ALT 14 05/02/2025 AST 18 05/02/2025 K 4.1 05/02/2025 CL 100 05/02/2025 CREATININE 1.61 (H) 05/02/2025 BUN 28 (H) 05/02/2025 CO2 22 05/02/2025 TSH 1.40 01/28/2022 PSA 0.86 05/16/2025 INR 1.3 (H) 11/05/2020 HGBA1C 11.5 (H) 05/02/2025 MICROALBUR 1.8 05/01/2024 X-ray foot right 3 views weight bearing XR FOOT RT MIN 3 VWS WEIGHT BEARING HISTORY: Right foot ulcer, with unspecified severity ([facility]). COMPARISON: 03/04/2025 IMPRESSION: Unchanged indication about the metatarsals. Progressive sclerosis and irregularity of the plantar aspect remnant tarsal/metatarsal are nonspecific, infection is possible. Correlate for associated soft tissue injury, consider MR, as appropriate. Plantar and Achilles calcaneal enthesophytes. Vascular calcifications. Finalized by Thomas Schrader MD on 06/12/2025 2:05 PM Assessment/Plan: 1. Gastroesophageal reflux disease, unspecified whether esophagitis present - pantoprazole (PROTONIX) 40 mg EC tablet; Take 1 tablet (40 mg total) by mouth in the morning. Dispense: 90 tablet; Refill: 0 2. Benign essential HTN - hydroCHLOROthiazide (HYDRODIURIL) 12.5 mg tablet; Take 1 tablet (12.5 mg total) by mouth daily. Dispense: 90 tablet; Refill: 0 - lisinopriL (PRINIVIL,ZESTRIL) 10 mg tablet; Take 1 tablet (10 mg total) by mouth in the morning for 360 days. Dispense: 90 tablet; Refill: 3 3. Chronic midline low back pain without sciatica - celecoxib (CeleBREX) 100 mg capsule; Take 1 capsule (100 mg total) by mouth in the morning. Dispense: 30 capsule; Refill: 2 4. Type 2 diabetes mellitus with foot ulcer, with long-term current use of insulin ([facility]) - lisinopriL (PRINIVIL,ZESTRIL) 10 mg tablet; Take 1 tablet (10 mg total) by mouth in the morning for 360 days. Dispense: 90 tablet; Refill: 3 - insulin NPH (HumuLIN N,NovoLIN N) 100 unit/mL injection; 38 units in the morning and 40 units at nighttime Dispense: 10 mL; Refill: 3 5. Mixed hyperlipidemia due to type 2 diabetes mellitus ([facility]) - atorvastatin (LIPITOR) 80 mg tablet; Take 1 tablet (80 mg total) by mouth daily with breakfast for 360 days Indications: excessive fat in the blood. Dispense: 90 tablet; Refill: 3 - niacin (NIASPAN) 500 mg CR tablet; Take 1 tablet (500 mg total) by mouth nightly. Dispense: 90 tablet; Refill: 1 6. Ulcer of right foot with fat layer exposed ([facility]) - amoxicillin-pot clavulanate (AUGMENTIN) 875-125 mg per tablet; Take 1 tablet by mouth in the morning and 1 tablet before bedtime. Do all this for 14 days. Dispense: 28 tablet; Refill: 0 7. Type 2 diabetes mellitus with other circulatory complication, with long-term current use of insulin ([facility]) - semaglutide (OZEMPIC) 0.25 mg or 0.5 mg (2 mg/3 mL) pen injector; Inject 0.5 mg under the skin every 7 days. Dispense: 2 mL; Refill: 0 - amoxicillin-pot clavulanate (AUGMENTIN) 875-125 mg per tablet; Take 1 tablet by mouth in the morning and 1 tablet before bedtime. Do all this for 14 days. Dispense: 28 tablet; Refill: 0 No problem-specific Assessment & Plan notes found for this encounter. Patient Instructions Increased atorvastatin to 80 mg daily and start on niacin 500 mg 1 tablet nightly for HDL improvement. Take Niacin with aspirin 81 mg daily to help with flushing. Increase Novolin N to 38 units in the morning and 40 units in the evening Follow-up: 1 month DM/HbA1c/right foot wound follow up - Art Freeman DO 08/10/25 1:49 PM [facility] Instructions Art Freeman DO - 08/10/2025 10:00 AM EDT Increased atorvastatin to 80 mg daily and start on niacin 500 mg 1 tablet nightly for HDL improvement. Take Niacin with aspirin 81 mg daily to help with flushing. Increase Novolin N to 38 units in the morning and 40 units in the evening documented [facility] this [facility]-17[facility]25 Miscellaneous Notes [employer] Patient assistance application faxed to Dr. Art Freeman's office at [phone] for provider signature. To follow up call [phone]. [employer] [place] Patient assistance application faxed to Dr. Art Freeman's office at [phone] for provider signature. To follow up call [phone]. documented [facility] this [facility]2025 Telephone encounter Note [employer] Patient assistance application faxed to Dr. Art Freeman's office at [phone] for provider signature. To follow up call [phone]. [employer] [place] Patient assistance application faxed to Dr. Art Freeman's office at [phone] for provider signature. To follow up call [phone]. [facility] [employer] 07-17-2025 Miscellaneous Notes Attempted to balbir patient, left VM ----- Message from Art Freeman DO sent at 07/17/2025 8:29 AM EDT ----- Let Mr. Kingsley know that his lipid panel results show cholesterol and LDL levels increased compared to last year. Continue with atorvastatin 40 mg daily ----- Message ----- From: Lab, Background User Sent: 07/16/2025 3:26 PM EDT To: Art Freeman DO documented in this encounter [facility] 07-17-2025 Telephone encounter Note Attempted to balbir patient, left VM ----- Message from Art Freeman DO sent at 07/17/2025 8:29 AM EDT ----- Let Mr. Kingsley know that his lipid panel results show cholesterol and LDL levels increased compared to last year. Continue with atorvastatin 40 mg daily ----- Message ----- From: Lab, Background User Sent: 07/16/2025 3:26 PM EDT To: Art Freeman DO [facility] 07-16-2025 History of Present illness Narrative Images from the original note were not included. [facility] - PHARMACY MEDICATION MANAGEMENT [address] [id number] Subjective SUBJECTIVE: Referring Provider: Art Freeman DO [facility] Referring Provider: Yes Consult Agreement: Yes Employee Program:No More Kingsley Jr. is a 59 y.o. (White or [1]) male who presents for an initial MTM visit of Type 2 Diabetes Mellitus. More Kingsley Jr. is accompanied by his no relatives. Patient presents today for initial management of Type 2 DM (Diagnosed about 30 years ago) to which patient has just began checking blood sugars due to previous lack of test strips. Meter and supplies were sent to the pharmacy after initial follow up with Dr Freeman on 04/2025. 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 Patients main goal for appointment today is Patient assistance for his insulins. Applications for both [employer] and Alejandra Nordisk completed today for Lantus, Novolog, and if needed, Ozempic, today. With these applications, medications will be shipped to providers office for pickup. Patient reports that he has been taking the insulins on and off due to affordability. He is interested in starting Ozempic therapy, and while he does not have any absolute contraindications, there is concern for side effects with his history of gastroparesis and ongoing GI issues. Patient confirms he would like to try and will report any side effects to [facility] immediately. Will also need to follow up with patient after starting therapy to determine safely and tolerance. Pertinent current medications include: Lantus 30 units in the morning and nightly Novolog U-100 70-150 0 units 151-174 2 units 175-199 4 units 200-224 6 units 225-249 8 units 250-274 10 units 275-299 12 units 300-350 14 units >350 16 units and call provider Pertinent previous medications include: Metformin- unsure for discontinuation, patient reports that this doesn't work for me , history of CKD Humalog- patient refusal, unsure of reason PERTINENT PAST MEDICAL HISTORY: Chronic Kidney Disease: Yes Atherosclerotic Cardiovascular Disease (ASCVD): No Heart Failure with Reduced/Preserved Ejection Fraction: No Pancreatitis/Gastroparesis: Yes, gastroparesis Medullary Thyroid Carcinoma: No Bariatric Surgery: No Genitourinary Fungal Infections: No DIET Breakfast: skips breakfast, only eats two meals per day Lunch: eggs and toast, PB+J, chicken and toast Dinner: Hamburger, similar to lunch time meals. Patient reports he doesn't have much of a appetite, but knows he needs to eat something. Snacks: Pringles, Funions, chips, bagel, peanut butter Drinks: Regular Koolaid, Milk, has been trying to move away from sodas- plain water upsets the stomach . EXERCISE: Limited mobility due to ulcer on the foot, amputation of toes and below the knee amputation. Patient reports he does not exercise. TESTING Home blood glucose: Patient checks blood glucose 2x daily. Blood Glucose Device Brand: Accu-check Diabetic Supplier: [facility] in [place] [employer] BG in the mid to high 200's on average: Objective OBJECTIVE: Vitals: Wt 113.8 kg (250 lb 14.1 oz) BMI 37.59 kg/m Caffeine intake within 60 minutes: No Height: Weight: Wt Readings from Last 3 Encounters: 07/16/25 113.8 kg (250 lb 14.1 oz) 07/05/25 113.7 kg (250 lb 9.6 oz) 05/10/25 115.4 kg (254 lb 6.4 oz) Weight Trend: stable. BMI: Body mass index is 37.59 kg/m . A1c: Lab Results Component Value Date HGBA1C 11.5 (H) 05/02/2025 SCr: Lab Results Component Value Date CREATININE 1.61 (H) 05/02/2025 GFR: GFR MDRD Af Amer Date Value Ref Range Status 04/17/2022 53 (L) >59 ml/min/1.73sq.m Final GFR MDRD Non Af Amer Date Value Ref Range Status 04/17/2022 44 (L) >59 ml/min/1.73sq.m Final UACR: @LABLAST(albcreatra) No results found for: EXTPOCALB No results found for: EXTUMICOR Vitamin B12 Level: Lab Results Component Value Date [id number] 1,009 (H) 05/16/2025 Lipid Management: Lab Results Component Value Date CHOL 152 05/01/2024 HDL 32 (L) 05/01/2024 LDLCALC 62 05/01/2024 TRIG 291 (H) 05/01/2024 The 10-year ASCVD risk score (Kenrick VILLAGRAN, et al., 2019) is: 14.4% Values used to calculate the score: Age: 59 years Sex: Male Is Non- : No Diabetic: Yes Tobacco smoker: No Systolic Blood Pressure: 116 mmHg Is BP treated: Yes HDL Cholesterol: 32 mg/dL Total Cholesterol: 152 mg/dL ADA Diabetes Quality Measures: Comments: - A1c: Up to date 11.5% on 04/26/2025 - Kidney Screening: - SCr: Up to date 05/02/2025 - UACR: Unknown - Lipid Screening: Overdue 05/01/2024, patient following up with PCP later this week - Eye Exam: Up to date 05/2025 - Foot Exam: Up to date 04/26/2025 - Dental Exam: Overdue encouraged patient to schedule appointment - Tobacco User: No - On Aspirin: No - On LUANA/ARB: Yes, lisinopril - On Statin: Yes, atorvastatin There is no immunization history on file for this patient. ASSESSMENT/PLAN: ASSESSMENT: Type 2 Diabetes Mellitus: uncontrolled as evidenced by hemoglobin A1c of 11.5% on 05/02/2025. Would like to start Farxiga or Jardiance for DM with renal benefit, will discuss further during next appointment in 3-4 weeks. Blood Glucose ranging from 144-345 since starting to test with new meter. Patient is a good candidate for CGM if at no cost to patient, will discuss in the future but continue to test 1-2 times daily and bring logs during appointment. Overdue for Lipid Screening EDUCATION / ADA MEASURES: Reviewed general diabetes pathophysiology and management Reviewed A1C and blood glucose goals Reviewed signs and symptoms of hyperglycemia/hypoglycemia and how to treat Encouraged to increase aerobic exercise Encouraged to obtain eye/foot/dental exam(s) Provided educational handouts Recommended a health maintenance visit with PCP Requested to obtain recommended labs MEDICATION PLAN: Start Ozempic 0.25 mg weekly Continue Lantus 30 units twice daily as soon as possible, PAP completed today Continue Novolog sliding scale as soon as possible, PAP completed today Things that will be discussed during next appointment in 3-4 weeks: Will discuss addition of Farxiga 10 mg daily or Jardiance 10 mg daily for BG management and CKD/renal benefit. eGFR on 05/02/25: 49 Will discuss CGM therapy if covered Ozempic tolerance with GI history. 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 Lele Frye RPH 07/16/25 1334 documented in this encounter [employer] 07-06-2025 Evaluation + Plan note Associated Problem(s): Peripheral artery disease Patient with moderate to severe peripheral artery disease based on studies from hospitalization earlier in June. Patient scheduled to have vascular procedure on 07/09. Improvement in vascular function will help with diabetic foot ulcer heal [facility] 07-06-2025 Miscellaneous Notes Associated Problem(s): Peripheral artery disease Patient with moderate to severe peripheral artery disease based on studies from hospitalization earlier in June. Patient scheduled to have vascular procedure on 07/09. Improvement in vascular function will help with diabetic foot ulcer heal Associated Problem(s): Diabetes mellitus ([facility]) Patient diabetes is uncontrolled. Due to financial restrictions, he is unable to afford insulin which he uses to control blood sugar. Patient's last hemoglobin A1c from April 2025 was 11.5%. Discussed with patient the importance of blood sugar control. Since patient having difficulty affording the cost of medications we will refer patient to the [facility] medical management team for diabetes to aid with patient assistance and management of blood sugars for tighter control.. documented in this encounter [facility] 07-06-2025 Evaluation + Plan note Associated Problem(s): Diabetes mellitus ([facility]) Patient diabetes is uncontrolled. Due to financial restrictions, he is unable to afford insulin which he uses to control blood sugar. Patient's last hemoglobin A1c from April 2025 was 11.5%. Discussed with patient the importance of blood sugar control. Since patient having difficulty affording the cost of medications we will refer patient to the [facility] medical management team for diabetes to aid with patient assistance and management of blood sugars for tighter control.. [facility] 07-05-2025 Miscellaneous Notes [facility] MEDICATION MANAGEMENT [address] [facility] [phone] New referral received by [facility] for diabetes. Patient was contacted to schedule appointment at [facility]ication [facility] [place] ([facility]). This was my first attempt to reach the patient and a message was left on their voicemail requesting a call back. Patient will be asked to bring [facility] Additional Info: Medication List. Referring provider: Art Freeman DO Patient with poorly controlled diabetes in part due to issues with affording the cost of insulin. Use is sporadic. ALos had chronic nonhealing diabetic wound on foot. Office does not have samples to provide Patient called and scheduled an appointment 07/16/25 at [facility]. documented in this encounter [facility] 07-05-2025 Telephone encounter Note [facility]NAG[facility] [address] [place] [address] [address] [facility] [phone] New referral received by [facility]ication Management for diabetes. Patient was contacted to schedule appointment at [facility] Medication [facility] ([facility]). This was my first attempt to reach the patient and a message was left on their voicemail requesting a call back. Patient will be asked to bring [facility] Additional Info: Medication List. Referring provider: Art Freeman DO Patient with poorly controlled diabetes in part due to issues with affording the cost of insulin. Use is sporadic. ALos had chronic nonhealing diabetic wound on foot. Office does not have samples to provide [facility] 07-05-2025 Telephone encounter Note Patient called and scheduled an appointment 07/16/25 at [facility]. [facility] 07-05-2025 History of Present illness Narrative Images from the original note were not included. [facility] [address] [place] [address] [place] [address] Patient: More Kingsley Jr. Date of : 1965 Encounter Date: 07/05/2025 Subjective: Chief Complaint Chief Complaint Patient presents with transitonal care visit History of Present Illness More Kingsley Jr. is a 59 y.o. male , established patient, that presents to the office for transitional care hospital follow-up. History provided by patient More Kingsley Jr. is a 59 y.o. male. The patient is here today for discharge follow up from hospital. Transition of Care Med Rec completed? Yes Discharged medications: Medications have been reviewed and reconciled with the most recent facility discharge document. Patient admitted from June 20, 2025 until June 22, 2025 at [facility] for diabetic infection of the right foot, cellulitis of the foot, ulcer of the right foot due to diabetes mellitus, ulcer of right foot with fat layer exposed, and peripheral artery disease. Patient currently on antibiotic Augmentin 875/125 mg 1 tablet twice daily for 14 days from discharge. Diabetes He presents for his follow-up diabetic visit. He has type 2 diabetes mellitus. Disease course: Last hemoglobin A1c 11.5% in April 2025. Patient states that he has been unable to afford the cost of insulin in so has not been on any medications to manage blood sugars. Associated symptoms include foot ulcerations (follows with Podiatry and has been treating the wound with Santyl solution.). Pertinent negatives for diabetes include no chest pain. Diabetic complications include peripheral neuropathy and PVD (patient with arterial studies which showed moderate to severe peripheral artery disease. Patient is scheduled for vascular procedure on July 09, 2025). (Diabetic foot ulceration) Home blood sugar record trend: Patient states he has not been able to test his blood sugars as he does not have any test strips currently. He states he was given a new glucometer Accu-Chek guide but was not given test strips. An LUANA inhibitor/angiotensin II receptor harjinder is being taken. Review of Systems Review of Systems Cardiovascular: Negative for chest pain. Gastrointestinal: Positive for nausea (Experiencing times when he having nausea and GI upset. He states that has not started famotidine 40 mg script). Vital Signs BP 116/72 (BP Site: Left Arm, BP Postition: Sitting) Pulse 90 Temp 36.7 C (98.1 F) (Oral) Wt 113.7 kg (250 lb 9.6 oz) SpO2 95% BMI 37.54 kg/m Physical Exam Physical Exam Vitals reviewed. Constitutional: General: He is not in acute distress. Appearance: He is not ill-appearing or toxic-appearing. Cardiovascular: Rate and Rhythm: Normal rate and regular rhythm. Heart sounds: No murmur heard. Pulmonary: Effort: Pulmonary effort is normal. No respiratory distress. Breath sounds: No wheezing, rhonchi or rales. Abdominal: General: Bowel sounds are normal. There is no distension. Palpations: Abdomen is soft. Neurological: Mental Status: He is alert. Past Medical, Family, Surgery and Social History Past Medical History: Diagnosis Date Acid reflux Anemia Arthritis Cataract right lens implant Charcot's joint 02/2021 left foot Chronic osteomyelitis of foot ([facility]) 02/2021 left/with draining sinus Dental disease poor repair Diabetes mellitus type 2, controlled ([facility]) 1999 Hyperlipidemia Hypertension PICC (peripherally inserted central catheter) flush 02/2021 Visual impairment glasses Past Surgical History: Procedure Laterality Date AMPUTATION SYMES LOWER EXTREMITY Left 04/18/2021 Performed by Chan Brooke DPM at [facility] AMPUTATION TOEMID FOOT OSTEOTOMY ACHILLES TENOTOMY Left 02/07/2021 Performed by Chan Brooke DPM at [facility] ASPIRATION BONE MARROW BIOPSY BONE MARROW (BONE BIOPSY) Left 03/24/2021 Performed by Chan Brooke DPM at [facility] CLOSURE WOUND LOWER EXTREMITY (DELAYED PRIMARY CLOSURE) Left 03/24/2021 Performed by Chan Brooke DPM at [facility] DEBRIDEMENT FOOT/ANKLE Left 02/07/2021 Performed by Chan Brooke DPM at [facility] EXOSTECTOMY FOOT Right 09/01/2021 Performed by Chan Brooke DPM at [facility] PHACO KELMAN I IMPLANT INTRAOCULAR LENS Right 12/28/2019 Performed by Debra Trejo MD at [facility] REMOVAL HARDWARE FOOT/TOE, AND REMOVAL ANTIBIOTIC SPACER Left 03/24/2021 Performed by Chan Brooke DPM at [facility] SURGERY TONSILLECTOMY as child Family History Problem [...] and 11 to the basement. Worked at [employer]. Now disabled Social Drivers of Health Financial Resource Strain: Low Risk (01/06/2024) Received from [facility] Overall Financial Resource Strain (CARDIA) Difficulty of Paying Living Expenses: Not hard at all Food Insecurity: No Food Insecurity (07/05/2025) Hunger Screening Food Insecurity - Worry: Never [...] Present (01/06/2024) Received from [facility] [place] [facility] [employer] [facility] - Occupational Stress Questionnaire Feeling of Stress : Very much Social Connections: Socially Isolated (01/06/2024) Received from [facility] Social Connection and Isolation Panel [NHANES] Frequency of Communication with Friends and Family: Never Frequency of Social Gatherings with Friends and Family: Never Attends Cheondoism Services: Never Active Member of Clubs or Organizations: Yes Attends Club or Organization Meetings: Never Marital Status: Interpersonal Safety: Unknown (01/13/2024) Received from [facility] Fear of Current [...] on File Prior to Visit Medication Sig amoxicillin-pot clavulanate (AUGMENTIN) 875-125 mg per tablet TAKE 1 TABLET BY MOUTH TWICE DAILY FOR 14 DAYS atorvastatin (LIPITOR) 40 mg tablet Take 1 tablet (40 mg total) by mouth daily with breakfast for 360 days Indications: excessive fat in the blood. BD VERO 2ND GEN PEN NEEDLE 32 gauge x 5/32 needle 1 Pen Needle by other route 3 (three) times a day. blood-glucose meter kit Use as instructed celecoxib (CeleBREX) 100 mg capsule Take 1 capsule (100 mg total) by mouth in the morning. cholecalciferol, vitamin D3, 2,000 units capsule Take 1 capsule (2,000 Units total) by mouth in the morning. clopidogreL (PLAVIX) 75 mg tablet Take 1 tablet (75 mg total) by mouth. dorzolamide (TRUSOPT) 2 % ophthalmic solution Administer 1 drop to the right eye in the morning and 1 drop before bedtime. Indications: increased pressure in the eye. doxycycline (MONODOX) 100 mg capsule TAKE 1 CAPSULE BY MOUTH TWICE DAILY FOR 14 DAYS hydroCHLOROthiazide (HYDRODIURIL) 12.5 mg tablet Take 1 tablet (12.5 mg total) by mouth daily. insulin aspart U-100 (NovoLOG Flexpen U-100 Insulin) 100 unit/mL (3 mL) insulin pen Sliding scale with pre meal blood sugars three times per day ( max dose 36 units/day) insulin glargine (LANTUS SOLOSTAR U-100 INSULIN) 100 unit/mL (3 mL) insulin pen Inject 30 Units under the skin in the morning and 30 Units before bedtime. latanoprost (XALATAN) 0.005 % ophthalmic solution Administer 1 drop into the left eye once daily at bedtime. INSTILL 1 DROP INTO LEFT EYE AT BEDTIME lisinopriL (PRINIVIL,ZESTRIL) 10 mg tablet Take 1 tablet (10 mg total) by mouth daily with breakfast for 90 days Indications: high blood pressure. pantoprazole (PROTONIX) 40 mg EC tablet Take 1 tablet (40 mg total) by mouth in the morning. No current facility-administered medications on file prior [...] 05/02/2025 CO2 22 05/02/2025 TSH 1.40 01/28/2022 PSA 0.86 05/16/2025 INR 1.3 (H) 11/05/2020 HGBA1C 11.5 (H) 05/02/2025 MICROALBUR 1.8 05/01/2024 X-ray foot right 3 views weight bearing XR FOOT RT MIN 3 VWS WEIGHT BEARING HISTORY: Right foot ulcer, with unspecified severity ([facility]). COMPARISON: 03/04/2025 IMPRESSION: Unchanged indication about the metatarsals. Progressive sclerosis and irregularity of the plantar aspect remnant tarsal/metatarsal are nonspecific, infection is possible. Correlate for associated soft tissue injury, consider MR, as appropriate. Plantar and Achilles calcaneal enthesophytes. Vascular calcifications. Finalized by Thomas Schrader MD on 06/12/2025 2:05 PM Assessment/Plan: 1. Type 2 diabetes mellitus with foot ulcer, with long-term current use of insulin ([facility]) - Lipid panel; Future - [facility] - [place], [place]; Future 2. Ulcer of right foot with fat layer exposed ([facility]) - collagenase (SantyL) ointment; Apply 1 Application topically in the morning. Dispense: 30 g; Refill: 0 3. Hyperlipidemia, unspecified hyperlipidemia type - Lipid panel; Future 4. Gastroesophageal reflux disease, unspecified whether esophagitis present - famotidine (PEPCID) 40 mg tablet; Take 1 tablet (40 mg total) by mouth in the morning and 1 tablet (40 mg total) before bedtime. Dispense: 60 tablet; Refill: 2 5. Peripheral artery disease Diabetes mellitus ([facility]) Patient diabetes is uncontrolled. Due to financial restrictions, he is unable to afford insulin which he uses to control blood sugar. Patient's last hemoglobin A1c from April 2025 was 11.5%. Discussed with patient the importance of blood sugar control. Since patient having difficulty affording the cost of medications we will refer patient to the [facility] medical management team for diabetes to aid with patient assistance and management of blood sugars for tighter control.. Peripheral artery disease Patient with moderate to severe peripheral artery disease based on studies from hospitalization earlier in June. Patient scheduled to have vascular procedure on 07/09. Improvement in vascular function will help with diabetic foot ulcer heal Follow-up: Keep August 10, 2025 appointment - Art Freeman DO 07/06/25 2:46 PM documented in this encounter [facility] 06-28-2025 Evaluation note Diagnosis Onset Date Resolution Diabetic ulcer of right foot acute June 28, 2025 9:55am Occlusion and stenosis of bilateral carotid arteries acute June 28, 2025 9:55am PAD (peripheral artery disease) acute June 28, 2025 9:55am [facility] Work Phone: [phone]) 551-868407-01-2025 Miscellaneous Notes* Telephone Encounter - Danielle Masters CNA - 05/22/2025 2:40 PM EDT ----- Message from Art Freeman DO sent at 05/22/2025 2:11 PM EDT ----- Please let Mr. Kingsley know that his blood results were all [...] User Sent: 05/16/2025 1:51 PM EDT To: Art Freeman DO * Telephone Encounter - Danielle Masters CNA - 05/22/2025 2:40 PM EDT Spoke with patient, he verbalized understanding. Patient declined the referral to endocrinology, just states he needs his meds * Telephone Encounter - Art Freeman DO - 05/22/2025 2:40 PM EDT Attempted to call patient did not answer I did not leave a message. I wanted to make sure from his last visit that he was able to get his insulins to manage his blood sugars. [facility] Telephone encounter Note* Telephone Encounter - Danielle Masters CNA - 05/22/2025 2:40 PM EDT ----- Message from Art Freeman DO sent at 05/22/2025 2:11 PM EDT ----- Please let Mr. Kingsley know that his blood results were all [...] 0.86. Thank you ----- Message ----- From: Jamil, Background User Sent: 05/16/2025 1:51 PM EDT To: Art Freeman DO [facility]07-01-2025 Telephone encounter Note* Telephone Encounter - Danielle Masters CNA - 05/22/2025 2:40 PM EDT Spoke with patient, he verbalized understanding. Patient declined the referral to endocrinology, just states he needs his meds [facility]07-01-2025 Telephone encounter Note* Telephone Encounter - Art Freeman DO - 05/22/2025 2:40 PM EDT Attempted to call patient did not answer I did not leave a message. I wanted to make sure from his last visit that he was able to get his insulins to manage his blood sugars. [facility]06-22-2025 Miscellaneous Notes* Telephone Encounter - Art Freeman DO - 05/13/2025 3:07 PM EDT CHANGE TO ACCUCHECK documented [facility] Telephone encounter Note* Telephone Encounter - Art Freeman DO - 05/13/2025 3:07 PM EDT CHANGE TO ACCUCHECK [facility]06-19-2025 Evaluation + Plan note* Assessment & Plan Note - Art Freeman DO - 05/10/2025 12:59 PM EDTAssociated Problem(s): Benign essential HTN Hypertension is stable. Continue with hydrochlorothiazide 12.5 mg daily and lisinopril 10 mg daily. [facility] Miscellaneous Notes* Assessment & Plan Note - Art Freeman DO - 05/10/2025 12:59 PM EDTAssociated Problem(s): Benign essential HTN Hypertension is stable. Continue with hydrochlorothiazide 12.5 mg daily and lisinopril 10 mg daily. * Assessment & Plan Note - Art Freeman DO - 05/10/2025 12:58 PM EDT Associated Problem(s): Diabetes mellitus ([facility]) Hemoglobin A1c from May 02, 2025 was 11.5%. Patient was unable to afford insulin prescriptions at last visit. Prescribed Lantus Solostar insulin pens 30 units twice daily and NovoLog flex pen sliding scale 3 times daily with meals. * Assessment & Plan Note - Art Freeman DO - 05/10/2025 12:57 PM EDT Associated Problem(s): Chronic midline low back pain without sciatica Reviewed 6 view lumbar x-rays from May 02, 2025. Prescribed celecoxib 100 mg 1 tablet daily. [facility] Evaluation + Plan note* Assessment & Plan Note - Art Freeman DO - 05/10/2025 12:58 PM EDT Associated Problem(s): Diabetes mellitus ([facility]) Hemoglobin A1c from May 02, 2025 was 11.5%. Patient was unable to afford insulin prescriptions at last visit. Prescribed Lantus Solostar insulin pens 30 units twice daily and NovoLog flex pen sliding scale 3 times daily with meals. [facility] [employer] [id number] Evaluation + Plan note* Assessment & Plan Note - Art Freeman DO - 05/10/2025 12:57 PM EDTAssociated Problem(s): Chronic midline low back pain without sciatica Reviewed 6 view lumbar x-rays from May 02, 2025. Prescribed celecoxib 100 mg 1 tablet daily. Decision Pace [id number] History of Present illness Narrative* Art Freeman DO - 05/10/2025 9:30 AM EDT Images from the original note were not included. [facility] [address] [place] [address] [place] [address] Patient: More Kingsley Jr. Date of : [...] left foot Chronic osteomyelitis of foot ([facility]) 02/2021 left/with draining sinus Dental disease poor repair Diabetes mellitus type 2, controlled ([facility]) 1999 Hyperlipidemia Hypertension PICC (peripherally inserted central catheter) flush 02/2021 Visual impairment glasses Past Surgical History: Procedure Laterality Date AMPUTATION SYMES LOWER EXTREMITY Left 04/18/2021 Performed by Chan Brooke DPM at [facility] AMPUTATION TOEMID FOOT OSTEOTOMY ACHILLES TENOTOMY Left 02/07/2021 Performed by Chan Brooke DPM at [facility] ASPIRATION BONE MARROW BIOPSY BONE MARROW (BONE BIOPSY) Left 03/24/2021 Performed by Chan Brooke DPM at [facility] CLOSURE WOUND LOWER EXTREMITY (DELAYED PRIMARY CLOSURE) Left 03/24/2021 Performed by Chan Brooke DPM at [facility] DEBRIDEMENT FOOT/ANKLE Left 02/07/2021 Performed by Chan Brooke DPM at [facility] EXOSTECTOMY FOOT Right 09/01/2021 Performed by Chan Brooke DPM at [facility] SURGERY PHACO KELMAN I IMPLANT INTRAOCULAR LENS Right 12/28/2019 Performed by Debra Trejo MD at [facility] REMOVAL HARDWARE FOOT/TOE, AND REMOVAL ANTIBIOTIC SPACER Left 03/24/2021 Performed by Chan Brooke DPM at [facility] SURGERY TONSILLECTOMY as child Family History Problem [...] and 11 to the basement. Worked at [employer]. Now disabled Social Drivers of Health Financial [...] Present (01/06/2024) Received from [facility] [place] [facility] [employer] - Occupational Stress Questionnaire Feeling of Stress : Very much Social Connections: Socially Isolated (01/06/2024) Received from [facility] Social Connection and Isolation Panel [NHANES] Frequency of Communication with Friends and Family: Never Frequency of Social Gatherings with Friends and Family: Never Attends Cheondoism Services: Never Active Member of Clubs or Organizations: Yes Attends Club or Organization Meetings: Never Marital Status: Interpersonal Safety: Unknown (01/13/2024) Received from [facility] Environment Fear of Current [...] with long-term current use of insulin ([facility]) - lisinopriL (PRINIVIL,ZESTRIL) 10 mg tablet; Take [...] mg 1 tablet daily. Diabetes mellitus ([facility]) Hemoglobin A1c from May 02, 2025 was [...] DO 05/10/25 12:59 PM [facility] Instructions* Patient Instructions* Art Freeman DO - 05/10/2025 9:30 AM [...] and exercises as given documented in this [facility]25 Evaluation + Plan note* Assessment & Plan Note - Art Freeman DO - 04/27/2025 9:18 PM EDT Associated Problem(s): Chronic midline low back pain without sciatica Ordered x-rays of lumbar spine 6 views including flexion and extension views. [facility] Miscellaneous Notes* Assessment & Plan Note - Art Freeman DO - 04/27/2025 9:18 PM EDTAssociated Problem(s): Chronic midline low back pain without sciatica Ordered x-rays of lumbar spine 6 views including flexion and extension views. * Assessment & Plan Note - Art Freeman DO - 04/27/2025 9:16 PM EDT Associated Problem(s): Diabetes mellitus ([facility]) Last hemoglobin A1c from April 01, 2025 was 11%. Continue with insulin glargine 30 units nightly, insulin lispro sliding scale coverage before meals. Monitor blood sugars before meals. * Assessment & Plan Note - Art Freeman DO - 04/27/2025 9:14 PM EDT Associated Problem(s): Benign essential HTN Blood pressure today in normal range. Patient denies any symptoms. Continue with hydrochlorothiazide 12.5 mg daily, lisinopril 10 mg daily. * Assessment & Plan Note - Art Freeman DO - 04/27/2025 9:13 PM EDT Associated Problem(s): Fatty liver disease, nonalcoholic Ordered lab work including comprehensive metabolic panel to evaluate for level of transaminase elevation documented in this [facility] Evaluation + Plan note* Assessment & Plan Note - Art Freeman DO - 04/27/2025 9:16 PM EDT Associated Problem(s): Diabetes mellitus ([facility]) Last hemoglobin A1c from April 01, 2025 was 11%. Continue with insulin glargine 30 units nightly, insulin lispro sliding scale coverage before meals. Monitor blood sugars before meals. [facility] Evaluation + Plan note* Assessment & Plan Note - Art Freeman DO - 04/27/2025 9:14 PM EDTAssociated Problem(s): Benign essential HTN Blood pressure today in normal range. Patient denies any symptoms. Continue with hydrochlorothiazide 12.5 mg daily, lisinopril 10 mg daily. [facility] Evaluation + Plan note* Assessment & Plan Note - Art Freeman DO - 04/27/2025 9:13 PM EDTAssociated Problem(s): Fatty liver disease, nonalcoholic Ordered lab work including comprehensive metabolic panel to evaluate for level of transaminase elevation [facility] History of Present illness Narrative* Art Freeman DO - 04/26/2025 2:00 PM EDT Images from the original note were not included. [facility] [address] [facility] [place] [address] Patient: More Kingsley Jr. Date of : [...] left foot Chronic osteomyelitis of foot ([facility]) 02/2021 left/with draining sinus Dental disease poor repair Diabetes mellitus type 2, controlled ([facility]) 1999 Hyperlipidemia Hypertension PICC (peripherally inserted central catheter) flush 02/2021 Visual impairment glasses Past Surgical History: Procedure Laterality Date AMPUTATION SYMES LOWER EXTREMITY Left 04/18/2021 Performed by Chan Brooke DPM at [facility] AMPUTATION TOEMID FOOT OSTEOTOMY ACHILLES TENOTOMY Left 02/07/2021 Performed by Chan Brooke DPM at [facility] ASPIRATION BONE MARROW BIOPSY BONE MARROW (BONE BIOPSY) Left 03/24/2021 Performed by Chan Brooke DPM at [facility] CLOSURE WOUND LOWER EXTREMITY (DELAYED PRIMARY CLOSURE) Left 03/24/2021 Performed by Chan Brooke DPM at [facility] DEBRIDEMENT FOOT/ANKLE Left 02/07/2021 Performed by Chan Brooke DPM at [facility] EXOSTECTOMY FOOT Right 09/01/2021 Performed by Chan Brooke DPM at [facility] PHACO KELMAN I IMPLANT INTRAOCULAR LENS Right 12/28/2019 Performed by Debra Trejo MD at [facility] REMOVAL HARDWARE FOOT/TOE, AND REMOVAL ANTIBIOTIC SPACER [...] and 10 to the basement. Worked at [employer]. Now disabled Social Drivers of Health Financial [...] Present (01/06/2024) Received from [facility] [place] [facility] - Occupational Stress Questionnaire Feeling of Stress : Very much Social Connections: Socially Isolated (01/06/2024) Received from [facility] Social Connection and Isolation Panel [NHANES] Frequency of Communication with Friends and Family: Never Frequency of Social Gatherings with Friends and Family: Never Attends Cheondoism Services: Never Active Member of Clubs or Organizations: Yes Attends Club or Organization Meetings: Never Marital Status: Interpersonal Safety: Unknown (01/13/2024) Received from [facility] [place] Safety & Environment Fear of [...] with long-term current use of insulin ([facility]) - TRUE METRIX GLUCOSE TEST STRIP strip; [...] daily, lisinopril 10 mg daily. Diabetes mellitus ([facility]) Last hemoglobin A1c from April 01, 2025 [...] DO 04/27/25 9:18 PM documented in this encounterSouthwest General Health Center06-05-2025 Instructions* Patient Instructions* Art Freeman DO - 04/26/2025 2:00 PM EDT Get blood work and x-ray of lumbar spine completed before next visit. Follow instructions for medications. Check blood sugars up to 4 times per day and use short acting insulin as directed. Take Lantus 30 units daily documented [facility] this [facility] [id number] History of Present illness Narrative* Sherri Garcia APRN-ROSALIA - 04/24/2025 10:30 AM EDTAssociated Order(s): Debridement Post-Procedure Diagnose(s): 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 ([facility]); Diabetic ulcerof right midfoot associated with type 2 diabetes mellitus, with muscle involvement without evidenceof necrosis ([facility]) Images from the original note were not included. Wound Care Progress Note Patient: More Kingsley Jr. Date of : 1965 Chief Complaint: Right foot ulcer, follow up Subjective/HPI: More is a 59 y.o. male who present to [facility] for evaluation of 1 ulcer(s) on theright plantar midfoot. Patient established with wound clinic 03/28/2025. Current wound care includes: Vashe soak, cover with Xeroform, secure with roll gauze. Patient is wearing a right tennis shoe, Patient presents with a prosthetic of the left foot. Patient states his case filler is Dr. Eric Stephenson, [facility]. Patient was seen in the emergency room [...] notes. Patient Active Problem List Diagnosis Sepsis ([facility]) Diabetic ulcer of right midfoot associated with type 2 diabetes mellitus, with muscle involvement without evidence of necrosis ([facility]) Chronic osteomyelitis of left foot with draining sinus ([facility]) Wound, open, foot with complication, left, initial encounter Charcot's joint of foot, left Diabetes mellitus ([facility]) Hyperlipidemia Osteomyelitis of left foot ([facility]) Ulcer of right foot with fat layer exposed ([facility]) History of transmetatarsal amputation of right foot ([facility]) 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 ([facility]) Unstable ankle, right Past Medical History: Diagnosis Date Acid reflux Anemia Arthritis Cataract right lens implant Charcot's joint 02/2021 left foot Chronic osteomyelitis of foot ([facility]) 02/2021 left/with draining sinus Dental disease poor repair Diabetes mellitus type 2, controlled ([facility]) 1999 Hyperlipidemia Hypertension PICC (peripherally inserted central catheter) flush 02/2021 Visual impairment glasses Past Surgical History: Procedure Laterality Date AMPUTATION SYMES LOWER EXTREMITY Left 04/18/2021 Performed by Chan Brooke DPM at [facility] AMPUTATION TOEMID FOOT OSTEOTOMY ACHILLES TENOTOMY Left 02/07/2021 Performed by Chan Brooke DPM at [facility] ASPIRATION BONE MARROW BIOPSY BONE MARROW (BONE BIOPSY) Left 03/24/2021 Performed by Chan Brooke DPM at [facility] CLOSURE WOUND LOWER EXTREMITY (DELAYED PRIMARY CLOSURE) Left 03/24/2021 Performed by Chan Brooke DPM at [facility] DEBRIDEMENT FOOT/ANKLE Left 02/07/2021 Performed by Chan Brooke DPM at [facility] EXOSTECTOMY FOOT Right 09/01/2021 Performed by Chan Brooke DPM at [facility] PHACO KELMAN I IMPLANT INTRAOCULAR LENS Right 12/28/2019 Performed by Debra Trejo MD at [facility] REMOVAL HARDWARE FOOT/TOE, AND REMOVAL ANTIBIOTIC SPACER Left 03/24/2021 Performed by Chan Brooke DPM at [facility] TONSILLECTOMY as child Social Drivers of [...] Interpersonal Safety: Unknown (01/13/2024) Received from [facility] Safety & Environment Fear of Current [...] Depression: Not at risk (03/13/2024) Received from [facility] PHQ-2 Patient Health Questionnaire-2 Score: 0 Alcohol Use: Not At Risk (01/06/2024) Received from [facility] AUDIT-C Frequency of Alcohol Consumption: Monthly [...] Gatherings with Friends and Family: Never Attends Cheondoism Services: Never Active Member of Clubs or Organizations: Yes Attends Club or Organization Meetings: Never Marital Status: Physical Activity: Inactive (01/06/2024) Received from [facility] Exercise Vital Sign Days of Exercise per Week: 0 days Minutes of Exercise per Session: 0 min Stress: Stress Concern Present (01/06/2024) Received from [facility] [place] [facility] - Occupational Stress Questionnaire [...] debridement Post debridement 04/24/25 1100 Site Assessment [place];Red 04/24/25 1100 Debi-wound Assessment Callous;Dry 04/24/25 1100 [...] Risks discussed: Yes Debridement Details: Performed by: [employer] Type: Sharp Level: Subcutaneous Tissue, Devitalized tissue [...] short term goal is wound compliance. Our terminal operations manager goal is wound closure. The patient was [...] 04/24/25 11:51 AM Sherri Garcia APRN, ROSALIA, ALBARO, NAVNEET [facility]:[phone] SCOTT Vaughn 03/28/25 1311 SCOTT Vaughn 03/28/25 1619 SCOTT Vaughn 04/11/25 1218 SCOTT Vaughn 04/24/25 1202 documented in this encounterSouthwest General Health Center06-03-2025 Instructions* Patient Instructions* Sulma Humphreys RN - 04/24/2025 [...] Description small Serosanginous yellow documented in this encounterSouthwest General Health Center05-30-2025 Nurse Note* Robbin Conti RN - 04/20/2025 11:02 AM EDT 1102 Spoke to patient to give procedure day instructions. Patient states he was told it was denied . Attempted to get clarification, but was unable to. Phone number to scheduling office provided to patient so that he can tell them the same thing I was told. No instructions given. [facility]05-30-2025 Nurse Note* Robbin Conti RN - 04/20/2025 11:02 AM EDT 1102 Spoke to patient to give procedure day instructions. Patient states he was told it was denied . Attempted to get clarification, but was unable to. Phone number to scheduling office provided to patient so that he can tell them the same thing I was told. No instructions given. documented in this encounterCleveland [facility]05-28-2025 Telephone encounter Note * Telephone Encounter - Tamara Goncalves RN - 04/18/2025 3:21 PM EDT G-POEM for date of service 04/25/2025. Appeal with all information including letter, study, JAMIN notes, GES result, EGG result, EGD result,CT result, faxed to [employer] Dept at fax [phone] with confirmation. Appeal also mailed out to [employer]) to the address provided. Copy placed in shared clinical office filing cabinet. [facility] Work Phone: 1(202) 523-480205-28-2025 Miscellaneous Notes* Telephone Encounter - Tamara Goncalves RN - 04/18/2025 3:21 PM EDT G-POEM for date of service 04/25/2025. Appeal with all information including letter, study, JAMIN notes, GES result, EGG result, EGD result,CT result, faxed to [employer] at fax [phone] with confirmation. Appeal also mailed out to [employer]Appeals Dept) to the address provided. Copy placed in shared clinical office filing cabinet. documented in this encounterCleveland [facility]05-21-2025 History of Present illness Narrative* Sherri Garcia, GRANT-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 - 04/11/2025 10:40 AM EDTAssociated Order(s): Debridement Post-Procedure Diagnose(s): Diabetic ulcer of right midfoot associated with type 2 diabetes mellitus, with muscle involvement without evidence of necrosis ([facility]) Images from the original note were not included. Wound Care Progress Note Patient: More Kingsley Jr. Date of : 1965 Chief Complaint: Right foot ulcer, follow up Subjective/HPI: More is a 59 y.o. male who present to [facility] for evaluation of 1 ulcer(s) on theright plantar midfoot. Patient established with wound clinic 03/28/2025. Current wound care includes: Vashe soak, cover with Xeroform, secure with roll gauze. Patient is wearing a right Darco off-loading shoe, Patient presents with a prosthetic of the left foot. Patient states he has been to Dr. Eric Stephenson, podiatry, in [facility]. Patient was seen in the emergency room [...] notes. Patient Active Problem List Diagnosis Sepsis ([facility]) Diabetic ulcer of right midfoot associated with type 2 diabetes mellitus, with muscle involvement without evidence of necrosis ([facility]) Chronic osteomyelitis of left foot with draining sinus ([facility]) Wound, open, foot with complication, left, initial encounter Charcot's joint of foot, left Diabetes mellitus ([facility]) Hyperlipidemia Osteomyelitis of left foot ([facility]) Ulcer of right foot with fat layer exposed ([facility]) History of transmetatarsal amputation of right foot ([facility]) 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 ([facility]) Unstable ankle, right Past Medical History: Diagnosis Date Acid reflux Anemia Arthritis Cataract right lens implant Charcot's joint 02/2021 left foot Chronic osteomyelitis of foot (CMS-HCC) 02/2021 left/with draining sinus Dental disease poor repair Diabetes mellitus type 2, controlled ([facility]) 1999 Hyperlipidemia Hypertension PICC (peripherally inserted central catheter) flush 02/2021 Visual impairment glasses Past Surgical History: Procedure Laterality Date AMPUTATION SYMES LOWER EXTREMITY Left 04/18/2021 Performed by Chan Brooke DPM at [facility] AMPUTATION TOEMID FOOT OSTEOTOMY ACHILLES TENOTOMY Left 02/07/2021 Performed by Chan Brooke DPM at [facility] ASPIRATION BONE MARROW BIOPSY BONE MARROW (BONE BIOPSY) Left 03/24/2021 Performed by Chan Brooke DPM at [facility] CLOSURE WOUND LOWER EXTREMITY (DELAYED PRIMARY CLOSURE) Left 03/24/2021 Performed by Chan Brooke DPM at [facility] DEBRIDEMENT FOOT/ANKLE Left 02/07/2021 Performed by Chan Brooke DPM at [facility] EXOSTECTOMY FOOT Right 09/01/2021 Performed by Chan Brooke DPM at [facility] PHACO KELMAN I IMPLANT INTRAOCULAR LENS Right 12/28/2019 Performed by Debra Trejo MD at [facility] REMOVAL HARDWARE FOOT/TOE, AND REMOVAL ANTIBIOTIC SPACER Left 03/24/2021 Performed by Chan Brooke DPM at [facility] TONSILLECTOMY as child Social Drivers of [...] Interpersonal Safety: Unknown (01/13/2024) Received from [facility] Safety & Environment Fear of Current [...] Depression: Not at risk (03/13/2024) Received from [facility] PHQ-2 Patient Health Questionnaire-2 Score: 0 Alcohol Use: Not At Risk (01/06/2024) Received from [facility] AUDIT-C Frequency of Alcohol Consumption: Monthly [...] Gatherings with Friends and Family: Never Attends Cheondoism Services: Never Active Member of Clubs or Organizations: Yes Attends Club or Organization Meetings: Never Marital Status: Physical Activity: Inactive (01/06/2024) Received from [facility] Exercise Vital Sign Days of Exercise per Week: 0 days Minutes of Exercise per Session: 0 min Stress: Stress Concern Present (01/06/2024) Received from [facility] [place] [facility] [place] - Occupational Stress Questionnaire [...] Take 1 tablet by mouth in the morningand 1 tablet before bedtime. Do all this [...] debridement Post debridement 04/11/25 1053 Site Assessment Moist;[place];Yellow;Red 04/11/25 1041 Debi-wound Assessment Dry;Callous;Maceration 04/11/25 1041 [...] Risks discussed: Yes Debridement Details: Performed by: [employer] Type: Sharp Level: Subcutaneous Tissue, Devitalized tissue [...] involvement without evidence of necrosis (CMS-HCC) 2. History of transmetatarsal amputation of right foot ([facility]) 3. 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 Wound, open, foot with complication, left, [...] roll gauze Off-load with a cut out [place] foam pad Change daily Renewed prescription written for Augmentin 875-125 mg b.i.d. for 10 days, dispensed 20. Referral to Dr. Stephenson's office for off-loading EKUK boot fitting Patient instructed in diabetic foot ulcer care to right and foot. Patient verbalize ability to perform wound care. Patient verbalized understanding. We will continue to follow closely to avoid any complications or infection. Our short term goal is wound compliance. Our custodial goal is wound closure. The patient was [...] CWS, NAVNEET [facility]:[phone] SCOTT Vaughn 03/28/25 1311 SCOTT Vaughn 03/28/25 1619 SCOTT Vaughn 04/11/25 1218 documented in this encounterSouthwest General Health Center05-21-2025 Instructions* Patient Instructions* Seema Hassan RN - 04/11/2025 10:40 AM [...] Description small Serosanginous yellow documented in this encounterBrattleboro Memorial HospitalBioLeap05-20-2025 NoteHNO ID: [id number] Author: JEROME DEL TORO, DO Service: ? Author Type: Physician Type: Progress Notes Filed: 04/10/2025 10:33 Note Text: [facility] [place] Gastroparesis/Dysmotility Consultation SERVICE DATE: 04/10/2025 SERVICE TIME: 10:04 AM PRIMARY CARE PHYSICIAN: No primary care provider on file. Imad Asa[address] [address] My final recommendations will be communicated back [...] proceed and full written consent was obtained. NAME: More Kingsley Jr. CLINIC NO: [id number] DATE OF SERVICE: April 10, 2025 This [...] of 0 to (more content not included)... [facility]05-20-2025 NoteHNO ID: [id number] Author: ANDREY ESTRELLA MA Service: ? Author Type: Implementation Specialist Payroll Type: Progress Notes Filed: 04/10/2025 10:33 Note Text: What is the reason for your visit today? Consult /empties Who is your referring physician? Tracy Yoon Are you having poor oral intake? YES Have you had unintentional weight loss of 15 lbs/7 Kg in the last 3-6 months? NO Bowels: regular Wound: clean AND dry Temperature: No Drains[facility]-2025 NoteHNO ID: [id number] Author: COURTNEY GLOVER PSYD Service: ? 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 He denies any significant psychiatric history and [...] Tends to sleep on his side. 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 Author [...] Medications - Does the patient see a industrial spraypainter for chronic pain?No - Is the patient [...] - Has the patient met with a nurses' aide for diet recommendations with Gastroparesis? No - [...] No evidence of an (more content not included)...[facility]05-15-2025 Telephone encounter Note* Telephone Encounter - Shena Stockton RN - 04/05/2025 3:13 PM EDT SPECIALTY CARE COORDINATION CHART REVIEW Contacted patient regarding upcoming appointment in the Gastroparesis Clinic. No answer. Message and call back number provided. Patient identified for Care Coordination from: gastroparesis diagnosis Last PCP office visit: Visit date not found Next OV: 04/10/2025 CHRONIC DX: gastroparesis CARE COORDINATION OUTREACH PLAN: New patient call; awaiting call back Shena Stockton RN April 05, 2025 [facility]05-15-2025 Miscellaneous Notes* Telephone Encounter - Shena Stockton RN - 04/05/2025 3:13 PM EDT SPECIALTY CARE COORDINATION CHART REVIEW Contacted patient regarding upcoming appointment in the [facility]roparesis Clinic. No answer. Message and call back number provided. Patient identified for Care Coordination from: gastroparesis diagnosis Last PCP office visit: Visit date not found Next OV: 04/10/2025 CHRONIC DX: gastroparesis CARE COORDINATION OUTREACH PLAN: New patient call; awaiting call back Shena Stockton RN April 05, 2025 documented in this encounterC[facility]05-07-2025 History of Present illness Narrative* Sherri Hollins [place], EDGE BEADER-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 - 03/28/2025 10:40 AM EDTAssociated Order(s): Debridement Post-Procedure Diagnose(s): Diabetic ulcer of right midfoot associated with type 2 diabetes mellitus, with muscle involvement without evidence of necrosis ([facility]); History of transmetatarsal amputation of right foot ([facility]) Images from the original note were not included. Wound Care Progress Note Patient: More Kingsley Jr. Date of : 1965 Chief Complaint: Right foot ulcer New patient evaluation Subjective/HPI: More is a 59 y.o. male who present to [facility] for evaluation of 1 ulcer(s) [...] AUREUS METHICILLIN RESISTANT VARIANT Abnormal Resulting Agency [facility] Today's reported Blood sugar: Patient [...] notes. Patient Active Problem List Diagnosis Sepsis ([facility]) Diabetic ulcer of left midfoot associated with type 2 diabetes mellitus, with necrosis of bone ([facility]) Chronic osteomyelitis of left foot with draining sinus ([facility]) Wound, open, foot with complication, left, initial encounter Charcot's joint of foot, left Diabetes mellitus ([facility]) Hyperlipidemia Osteomyelitis of left foot ([facility]) Ulcer of right foot with fat layer exposed ([facility]) History of transmetatarsal amputation of right foot ([facility]) Past Medical History: Diagnosis Date Acid reflux Anemia Arthritis Cataract right lens implant Charcot's joint 02/2021 left foot Chronic osteomyelitis of foot ([facility]) 02/2021 left/with draining sinus Dental disease poor repair Diabetes mellitus type 2, controlled ([facility]) 1999 Hyperlipidemia Hypertension PICC (peripherally inserted central catheter) flush 02/2021 Visual impairment glasses Past Surgical History: Procedure Laterality Date AMPUTATION SYMES LOWER EXTREMITY Left 04/18/2021 Performed by Chan Brooke DPM at [facility] AMPUTATION TOEMID FOOT OSTEOTOMY ACHILLES TENOTOMY Left 02/07/2021 Performed by Chan Brooke DPM at [facility] ASPIRATION BONE MARROW BIOPSY BONE MARROW (BONE BIOPSY) Left 03/24/2021 Performed by Chan Brooke DPM at [facility] CLOSURE WOUND LOWER EXTREMITY (DELAYED PRIMARY CLOSURE) Left 03/24/2021 Performed by Chan Brooke DPM at [facility] DEBRIDEMENT FOOT/ANKLE Left 02/07/2021 Performed by Chan Brooke DPM at [facility] EXOSTECTOMY FOOT Right 09/01/2021 Performed by Chan Brooke DPM at [facility] PHACO KELMAN I IMPLANT INTRAOCULAR LENS Right 12/28/2019 Performed by Debra Trejo MD at [facility] REMOVAL HARDWARE FOOT/TOE, AND REMOVAL ANTIBIOTIC SPACER Left 03/24/2021 Performed by Chan Brooke DPM at [facility] TONSILLECTOMY as child Social Drivers of [...] Interpersonal Safety: Unknown (01/13/2024) Received from [facility] Safety & Environment Fear of Current [...] Depression: Not at risk (03/13/2024) Received from [facility] PHQ-2 Patient Health Questionnaire-2 Score: 0 Alcohol Use: Not At Risk (01/06/2024) Received from [facility] AUDIT-C Frequency of Alcohol Consumption: Monthly [...] Gatherings with Friends and Family: Never Attends Cheondoism Services: Never Active Member of Clubs or Organizations: Yes Attends Club or Organization Meetings: Never Marital Status: Physical Activity: Inactive (01/06/2024) Received from [facility] Exercise Vital Sign Days of Exercise per Week: 0 days Minutes of Exercise per Session: 0 min Stress: Stress Concern Present (01/06/2024) Received from [facility] [place] [facility] [place] - Occupational Stress Questionnaire [...] Take 1 tablet by mouth in the morningand 1 tablet before bedtime. Do all this [...] 03/28/25 1104 Wound Width (cm) 3.3 cm 03/28/251103 Wound Surface Area (cm^2) 10.37 cm^2 03/28/251103 Wound Depth (cm) 0.2 cm 03/28/251103 Wound [...] Risks discussed: Yes Debridement Details: Performed by: [employer] Type: Sharp Level: Subcutaneous Tissue, Devitalized tissue [...] with muscle involvement without evidence of necrosis ([facility]) 2. History of transmetatarsal amputation of right foot ([facility]) 3. Visit for wound check Vashe Use:sample [...] roll gauze Off-load with a cut out [place] foam pad Change daily Discussed various offloading [...] short term goal is wound compliance. Our terminal operations manager goal is wound closure. The patient was [...] Garcia APRN, ROSALIA, CWS, NAVNEET [facility]:[phone] SCOTT Vaughn 03/28/25 6703 SCOTT Vaughn 03/28/25 7344 documented in this [facility]05-07-2025 Instructions* Patient Instructions* Seema Hassan RN - 03/28/2025 10:40 AM [...] Description moderate Serosanginous yellow documented in this [facility]12-31-2024 Telephone encounter Note* Telephone Encounter - Leonard Cadet - 11/21/2024 3:[address] Yoon's office phones requesting office note from October 24 When completed, please fax to [phone] Leonard Cadet [facility]12-31-2024 Miscellaneous Notes* Telephone Encounter - Leonard Cadet - 11/21/2024 3:[address] Yoon's office phones requesting office note from October 24 When completed, please fax to [phone] Leonard Cadet documented in this encounterCleveland Clinic [facility]12-03-2024 NoteHNO ID: [id number] Author: DAVIDA PRICE MD Service: ? Author Type: Physician Type: Progress Notes Filed: 05/20/2025 17:03 Note Text: Summary: Patient not seen Patient was not seen. Miscommunication between my office and the patient. I was out of the office. Will be rescheduled.[facility]12-03-2024 History of Present illness Narrative* Davida Price MD - 10/24/2024 4:57 PM ESTSummary: Patient not seen Patient was not seen. Miscommunication between my office and the patient. I was out of the office. Will be rescheduled. [facility] Telephone encounter Note * Telephone Encounter - Deonna Patel - 06/22/2024 6:55 AM EDT Gp ref and ges in scanned docs Needs registration [place] [id number] Miscellaneous Notes* Telephone Encounter - Deonna Patel - 06/22/2024 6:55 AM EDT Gp ref and ges in scanned docs Needs registration documented in this encounterC[facility]-18-2024 Evaluation note* Author Tracy Yoon [facility] Authored May 09, 2024 2:36 pm 58-year-old [...] arrange for gastric emptying study. [facility] Work Phone: [phone]) 205-600403-14-2024 [facility] Evaluation note* Encounter Date Diagnosis Assessment Notes [...] is to continue with famotine and pantoprazole [facility] Other 12-18-2023 Evaluation note* Encounter Date Diagnosis [...] - L90.9) recommend f/u with Dr. Stephenson [facility] Other 10-04-2023 Evaluation note* Encounter Date Diagnosis [...] map diet Pt RTO in 3 months [facility] Other 04-04-2023 Evaluation note* Encounter Date Diagnosis [...] GERD (gastroesophageal reflux disease) (ICD-10 - K21.9) [facility] Other 10-04-2022 Evaluation note* Encounter Date Diagnosis Assessment Notes Treatment Notes Treatment Clinical Notes Aug, GERD (gastroesophageal reflux disease) (ICD-10 - K21.9) Stop Pantoprazole Start Omeprazole 40mg bid, 30 minutes prior to the first meal and last meal of the day. Follow up in 6 months Aug, Nausea & vomiting (ICD-10 - R11.2) [facility] Other Chi complaint+Reason for visit Narrative* Chief Complaint Referral Cheng Hahn lz DM 6 week follow up Reason for Visit Nausea and vomiting [facility] Work Phone: evaluation noteNo [facility] Other evaluation note* Diagnosis Onset Date Resolution Status Nausea and vomiting acute [facility] Work Phone: Evaluation note* Diagnosis Diabetic ulcer of right midfoot associated with type 2 diabetes mellitus, with muscle involvement without evidence of necrosis (CMS-HCC)- Primary History of transmetatarsal amputation of right foot ([facility]) Visit for wound check documented in this encounter [facility]* Diagnosis Diabetic ulcer of right midfoot associated with type 2 diabetes mellitus, with muscle involvement without evidence of necrosis (CMS-HCC)- Primary History of transmetatarsal amputation of right foot ([facility]-HCC) 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 ([facility]-H[facility]) Wound, open, foot with complication, left, initial encounter Unstable ankle, right documented in this encounter [facility]* Diagnosis Benign essential HTN- Primary Type 2 diabetes mellitus with foot ulcer, with long-term current use of insulin (CMS-HCC) Chronic midline low back pain without sciatica Fatty liver disease, nonalcoholic Visit for wound check Hyperglycemia Other abnormal glucose Gastroesophageal reflux disease, unspecified whether esophagitis present documented in this encounter [facility]* Diagnosis Diabetic ulcer of right midfoot associated with type 2 diabetes mellitus, with muscle involvement without evidence of necrosis (CMS-HCC)- Primary 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 ([facility]-H[facility]) documented in this encounter [facility]* Diagnosis Benign essential HTN- [...] Fatigue, unspecified type [facility] Diagnosis Benign essential HTN- Primary [...] with long-term current use of insulin (CMS-HCC) documented in this encounter [facility]* Diagnosis Benign essential HTN- [...] ulcer, with long-term current use of insulin (CMS-HCC)- Primary documented in this encounter [facility]* Diagnosis Gastroparesis- Primary documented in this encounter [facility] noteNo assessment information availableUniversity Hospitals Ahu[facility] Work Phone: Evaluation note* Diagnosis Benign essential HTN- Primary Type [...] malignant neoplasm of prostate Fatigue, unspecified type Ulcer of right foot with fat layer exposed (CMS-HCC)- Primary Type 2 diabetes mellitus with foot ulcer, with long-term current use of insulin (CMS-HCC) Hyperlipidemia, unspecified hyperlipidemia type Gastroesophageal reflux disease, unspecified whether esophagitis present Peripheral artery disease Type 2 diabetes mellitus with foot ulcer, with long-term current use of insulin ([facility]) documented in this encounter [facility]* Diagnosis Benign essential HTN- Primary Type 2 diabetes mellitus with foot ulcer, with long-term current use of insulin ([facility]) Chronic midline low back pain without sciatica Fatty liver disease, nonalcoholic Visit for wound check Hyperglycemia Other abnormal glucose Gastroesophageal reflux disease, unspecified whether esophagitis present Type 2 diabetes mellitus with foot ulcer, with long-term current use of insulin ([facility]) Benign essential HTN Gastroesophageal reflux disease, unspecified whether esophagitis present Chronic midline low back pain without sciatica Encounter for screening for malignant neoplasm of prostate Fatigue, unspecified type Ulcer of right foot with fat layer exposed ([facility])- Primary Type 2 diabetes mellitus with foot ulcer, with long-term current use of insulin ([facility]) Hyperlipidemia, unspecified hyperlipidemia type Gastroesophageal reflux disease, unspecified whether esophagitis present Peripheral artery disease documented in this encounter [facility]* Diagnosis Benign essential HTN- Primary Type 2 diabetes mellitus with foot ulcer, with long-term current use of insulin ([facility]) Chronic midline low back pain without sciatica Fatty liver disease, nonalcoholic Visit for wound check Hyperglycemia Other abnormal glucose Gastroesophageal reflux disease, unspecified whether esophagitis present Type 2 diabetes mellitus with foot ulcer, with long-term current use of insulin ([facility]) Benign essential HTN Gastroesophageal reflux disease, unspecified whether esophagitis present Chronic midline low back pain without sciatica Encounter for screening for malignant neoplasm of prostate Fatigue, unspecified type Ulcer of right foot with fat layer exposed ([facility])- Primary Type 2 diabetes mellitus with foot ulcer, with long-term current use of insulin ([facility]) Hyperlipidemia, unspecified hyperlipidemia type Gastroesophageal reflux disease, unspecified whether esophagitis present Peripheral artery disease Type 2 diabetes mellitus with other circulatory complication, with long-term current use of insulin ([facility])- Primary documented in this encounter [facility]* Diagnosis Benign essential HTN- Primary Type 2 diabetes mellitus with foot ulcer, with long-term current use of insulin ([facility]) Chronic midline low back pain without sciatica Fatty liver disease, nonalcoholic Visit for wound check Hyperglycemia Other abnormal glucose Gastroesophageal reflux disease, unspecified whether esophagitis present Type 2 diabetes mellitus with foot ulcer, with long-term current use of insulin ([facility]) Benign essential HTN Gastroesophageal reflux disease, unspecified whether esophagitis present Chronic midline low back pain without sciatica Encounter for screening for malignant neoplasm of prostate Fatigue, unspecified type Ulcer of right foot with fat layer exposed ([facility])- Primary Type 2 diabetes mellitus with foot ulcer, with long-term current use of insulin ([facility]) Hyperlipidemia, unspecified hyperlipidemia type Gastroesophageal reflux disease, unspecified whether esophagitis present Peripheral artery disease Type 2 diabetes mellitus with other circulatory complication, with long-term current use of insulin ([facility])- Primary Type 2 diabetes mellitus with foot ulcer, with long-term current use of insulin ([facility]) Benign essential HTN Mixed hyperlipidemia due to type 2 diabetes mellitus ([facility]) Gastroesophageal reflux disease, unspecified whether esophagitis present Chronic midline low back pain without sciatica Ulcer of right foot with fat layer exposed ([facility]) documented in this encounter [facility]* Diagnosis Benign essential HTN- Primary Type 2 diabetes mellitus with foot ulcer, with long-term current use of insulin ([facility]) Chronic midline low back pain without sciatica Fatty liver disease, nonalcoholic Visit for wound check Hyperglycemia Other abnormal glucose Gastroesophageal reflux disease, unspecified whether esophagitis present Type 2 diabetes mellitus with foot ulcer, with long-term current use of insulin ([facility]) Benign essential HTN Gastroesophageal reflux disease, unspecified whether esophagitis present Chronic midline low back pain without sciatica Encounter for screening for malignant neoplasm of prostate Fatigue, unspecified type Ulcer of right foot with fat layer exposed ([facility])- Primary Type 2 diabetes mellitus with foot ulcer, with long-term current use of insulin ([facility]) Hyperlipidemia, unspecified hyperlipidemia type Gastroesophageal reflux disease, unspecified whether esophagitis present Peripheral artery disease 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 ([facility]) [E11.628, L84]- Primary documented in this encounter [facility]* Diagnosis Benign essential HTN- Primary Type 2 diabetes mellitus with foot ulcer, with long-term current use of insulin ([facility]) Chronic midline low back pain without sciatica Fatty liver disease, nonalcoholic Visit for wound check Hyperglycemia Other abnormal glucose Gastroesophageal reflux disease, unspecified whether esophagitis present Type 2 diabetes mellitus with foot ulcer, with long-term current use of insulin ([facility]) Benign essential HTN Gastroesophageal reflux disease, unspecified whether esophagitis present Chronic midline low back pain without sciatica Encounter for screening for malignant neoplasm of prostate Fatigue, unspecified type Ulcer of right foot with fat layer exposed ([facility])- Primary Type 2 diabetes mellitus with foot ulcer, with long-term current use of insulin ([facility]) Hyperlipidemia, unspecified hyperlipidemia type Gastroesophageal reflux disease, unspecified whether esophagitis present Peripheral artery disease Ulcer of right foot with fat layer exposed ([facility])- Primary documented in this encounter [facility] Author Tracy Yoon [facility] February 03, 2024 2:08pm Note Date/Time February 03, 2024 2:0 8pm [facility] [address] [place] [address] Gastroenterology H&P Signed Patient: More Kingsley MR#: [id number] : 1965 Acct:[id number] Age/Sex: 58 / M Adm Date: 4 Loc: Room: Type: [facility] Attending Dr: Tracy Yoon MD Copies to: MD Cheng Goodman, [employer]~ Date of Service: 02/03/2024 HISTORY & PHYSICAL: [...] M.D. Documented By: Tracy Yoon MD 02/03/24 1407 Signed By: <Electronically signed by Tracy Yoon MD> 02/03/24 1408 [facility] Work Phone: History general Narrative - Reported* Type Description Date Medical History high blood pressure Medical History high cholesterol Medical History diabetes mallitus Surgical History toes removed on right foot Surgical History left foot Surgical History right eye Hospitalization History Foot [facility] Other History general Narrative - Reported* Type Description Date Medical History high blood pressure Medical History high cholesterol Medical History diabetes mellitus Medical History peripheral neuropathy Medical History fatty liver Medical History retinopathy Surgical History toes removed on right foot Surgical History left foot Surgical History right eye Hospitalization History Foot [facility] Other InstructionsNot on filedocumented in this encounter [facility] filedocumented in this encounter [facility] SystemInstructionsNot on filedocumented in this encounter [facility] SystemInstructionsNot on filedocumented in this encounter [facility]ructionsNot on filedocumented in this encounter [facility] SystemInstructionsNot on filedocumented in this encounter [facility] SystemInstructionsNot on filedocumented in this encounter [facility] SystemInstructionsNot on filedocumented in this encounter [facility] SystemInstructionsNot on filedocumented in this encounter [facility] SystemReason for referral (narrative)No reason for referral information availableUniversity Hospitals Ahuja [facility] Center Work Phone: Reason for visit Narrativereferral Cheng Staples, New patient Type 2IDDM apt with TMapus 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, 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 OPERATIONS-C, BC-ADMNort [employer] Other Summary Purpose Family History Relationship Condition [...] Documents on File Type Date Recorded Patient Corporate Travel Coordinator Expl anation Advance Directives and Livin g Will 11/06/2020 8:18 PM Latest Code Status on File Code Status Date Activated Date Inactivated Comments Full Code - Unverified 11/05/2020 7:21 PM 11/21/2020 1 0:03 PM Documents on File Type Date Recorded Patient Corporate Travel Coordinator Expl anation Advance Directives and Livin g Will 11/06/2020 8:18 PM Latest Code Status on File Code Status Date Activated Date Inactivated Comments Full Code - Unverified 11/05/2020 7:21 PM 11/21/2020 1 0:03 PM Documents on File Type Date Recorded Patient Corporate Travel Coordinator Expl anation Advance Directives and Livin g Will 12/19/2020 8:18 PM Documents on File Type Date Recorded Patient Corporate Travel Coordinator Expl anation Advance Directives and Livin g Will 12/27/2020 10:17 AM Documents on File Type Date Recorded Patient Corporate Travel Coordinator Expl anation Advance Directives and Livin g Will 01/09/2021 10:17 AM Documents on File Type Date Recorded Patient Corporate Travel Coordinator Expl anation Advance Directives and Livin g Will 01/24/2021 10:17 AM Documents on File Type Date Recorded Patient Corporate Travel Coordinator Expl anation Advance Directives and Livin g [...] proliferative retinopathy type (HCC) Palak Arora MD [address] [place] [id number] Reason Eval and treat/ Food allergy testing. Diagnosis 1 Nausea & vomiting (R 11.2) Referral Organization [facility] Referring Provider First Name Amor Referring Provider Last Name Jim Referring Provider Specialty Gastroenter ology Referred Organization Unknown Facility Referred Provider Specialty Allergy/Immu nology Referral Priority Routine Reason DIABETES MANAGEMENT Diagnosis 1 Diabetes mellitus ty pe 2 with complications (E11.8) Referral Organization [facility] Referring Provider First Name Sebastián Referring Provider Last Name Tryell Referring Provider Specialty Nurse Pract itioner Referred Organization Unknown Facility Referred Provider Cam Wallis Referred Provider Specialty Endocrinolog y Referral Priority Routine General Notes Suzanne Jordan 10/22 04:07:26 PM >LVM FOR OFFICE TO CALL FOR SCHEDULING. Hospital Course * Palak Arora MD - 11/21/2020 2:49 PM EST HOSPITALIST DISCHARGE SUMMARY Patient: More Kingsley Account: [id number] Admitted: 11/05/2020 Discharge Date/Time: 11/21/2020 Clinical Summary [...] Inpatient consult to Endocrinology Inpatient consult to Wicker Worker Inpatient consult to Dietitian Inpatient consult to [...] Discharge Diet: Oral nutrition supplements Tyree; Tyree [place] At dinner Oral nutrition supplements Tyree; Tyree [...] Physician(s) Family: Cheng Staples CNP, , Address: [address] [place] [address] / [place] [address] Follow Up: [facility] [address] [facility] [id number] Schedule an appointment as soon as possible for a visit in 2 week(s) Dr. Arabella [facility] Address: [place] Count[place]: Kris Miranda, Bria, Thomas, Esdras, Radha, Ronald, Adam Johnson [phone] Patient instructions, including activity, were given to [...] sent through Care Everywhere. * Wound Check (Mexican) documented in this encounter History of Present Illness * Jai Kumar Jr., DPM - 11/21/2020 2:11 PM EST Assessment: (Patient [...] present. Principal Problem: Secondary DM with DKA ([facility]) Active Problems: Type 2 diabetes mellitus with retinopathy of both eyes, with long-term current use of insulin ([facility]) * Joan Terjo LISW - 11/21/2020 12:27 PM EST SIMPLE DISCHARGE Date: 11/21/2020 Time: 12:27 PM Patient Name: More Kingsley Date of : 1965 Sex: Male Patient has him home vac on . He will get his last antibiotic dose early tonight before discharge. [facility] will deliver antibiotics this evening to patient's home. [facility] will start care on11/23/2020 around 0900. Bridge RN will contact patient this evening to confirm time. [facility] He will contact this [...] More Kingsley Jr. Admit Date: MR #: [id number] : 1965 Physicians: Cheng Staples CNP (Family); No ref. provider found (Referring) Assessment: Patient with 1. Left foot abscess, with MSSA 2. Osteomyelitis with MSSA 3. Uncontrolled diabetes. 4. Abdominal pain. 5. Constipation. Plan. Continue patient on current therapyn. Continue patient on IV cefazolin. I reviewed labs, including cultures, with MSSA, and be strep. I appreciate case filler evaluation. Patient needs incision and drainage of left foot abscess Dressing according to case filler recommendation Endocrinology evaluation for adequate blood sugar [...] g (premix), 2,000 mg, Intravenous, Q8H, Mady Tejada CNP, Last Rate: 100 mL/hr at 11/20/20 [...] Units, 5,000 Units, Subcutaneous, Q8H SANCHO, Chuyita rAias MD, 5,000 Units at 11/20/20 1359 insulin [...] Jean Farley MD, 1 tablet at 11/20/20 182 pantoprazole (PROTONIX) EC tablet 40 mg, 40 mg, Oral, Daily, Chuyita Arias MD, 40 mg at 11/20/20 0928 sodium chloride (PF) (NS) flush 10 mL, 10 mL, Intracatheter, Q8H SANCHO, Palak Arora MD, 10mL at 11/20/20 1356 sodium chloride (PF) (NS) flush 10-20 mL, 10-20 mL, Intracatheter, PRN, Palak Arora MD sodium chloride 0.9% (NS), 0-150 mL/hr, Intravenous, PRN, Tanja Whitmore, [facility],PharmD, New Bag at 11/11/20 1615 PMH/PSH/SH/ reviewed, [...] excoriations Musculoskeletal: No joint swelling, non tender APPLE PRESS OPERATOR: Awake, and Ox3 Wound: Foot with description [...] retained stool in the proximal colon and swyru-ok-uldihqfl amount of retained stool in the distal [...] No tendon tear or tenosynovitis is seen. [employer] Workstation ID: [id number] MR Foot Right With And Without Contrast Final Result 1. Prior forefoot resection. Cellulitis of the surgical stump is seen associated with small ulceration. 2. No abscess. 3. No MR signs of osteomyelitis. 4. Aawq-th-gqnomseq mid/hindfoot osteoarthritis. 5. Remote sprains of the ATFL and deep fibers of the deltoid ligament, as above. [employer] Workstation ID: [id number] [id number] Foot Left 3+ [...] Endocrine * (Principal) Secondary DM with DKA ([facility]) Relevant Medications insulin glargine (LANTUS) 100 unit/mL [...] eyes, with long-term current use of insulin ([facility]) Relevant Medications insulin glargine (LANTUS) 100 unit/mL [...] Arora MD - 11/20/2020 5:49 PM EST [facility] Medicine Inpatient Follow-up 11/20/2020 Palak Arora MD [facility] Patient: More Kingsley Jr. Date of : [...] Q8H heparin (porcine) 5,000 Units Subcutaneous Q8H [facility] insulin glargine 25 Units Subcutaneous Nightly lispro insulin 0-15 Units Subcutaneous at bedtime insulin lispro 0-30 Units Subcutaneous Daily before lunch insulin lispro 0-30 Units Subcutaneous Before dinner [START ON 11/21/2020] insulin lispro 0-30 Units Subcutaneous QAM AC pantoprazole 40 mg Oral Daily sodium chloride (PF) 10 mL Intracatheter Q8H [facility] Results/Medications Reviewed 11/20/20 5:49 PM: Results from [...] of bed rail) Sit to Supine: Modified Tully(HOB elevated) Skilled Intervention: Pt seated EOB ~11 [...] . Prior Level of Function Level of Tully: Independent with ADLs and functional transfers Lives [...] of Occupational Therapy Plan of Care. * Abdoulaye Menjivar - 11/20/2020 2:52 PM EST DISCHARGE PLAN PROGRESS NOTE Date: 11/20/2020 Time: 2:52 PM Patient Name: More Kingsley Jr. Date of : 1965 Sex: Male This equipment processor received call back from [facility], agency able to accept patient and start care on WednesdayNovember 22. Joan director social welfare updated. Abdoulaye Menjivar [facility] Disposition Regulatory Documentation: Medicare IM Regulatory Documentation Status: Signed Signed: Self * Joan Trejo LISW - 11/20/2020 10:35 AM EST DISCHARGE PLAN PROGRESS NOTE Date: 11/20/2020 Time: 10:35 AM Patient Name: More Kingsley Jr. Date of : 1965 Sex: Male [facility] contacted this worker. Patient has medicare part D and is in the [place] coverage. Meds will be $1.30 per week. Supplies are $15 a day. Depending on what home care patient is arranged with, supplies may be able to be bundled billed. Maribel and Iron are working on trying to establish a home health provider. 1304- Podiatry would like to postpone discharge due to amount of wound vac drainage. [facility] Disposition Regulatory Documentation: Medicare IM Regulatory Documentation Status: Signed Signed: Self * Marvel Mcmillan MD - 11/20/2020 9:55 AM EST Patient ID: Patient Name: More Kingsley Jr. Admit Date: 11/05/2020 MR #: [id number] : 1965 Current location: [facility] Physicians: Cheng Stapels CNP (Family); Dr. Pinedo (Referring) Reason for [...] 11/14: Continue current insulin doses. Consult health careers instructor for gastroparesis diet education. 11/18: CPM 11/19: CPM 11/20 Discharge on 5 H TID ac and 25 Lantus, plus SSI. Can restart metformin 1000 mg BID. [facility] 2. Education: Reviewed ABCs of diabetes management [...] with IV ATB. Pt does live in [place], is willing to follow up in wound [...] long-term current use of insulin (HCC) * Marcella Bell MD - 11/19/2020 5:20 PM EST Patient Name: More Kingsley . Admit Date: MR #: [id number] : 1965 Physicians: Cheng Staples CNP (Family); No ref. provider found (Referring) Assessment: Patient with 1. Left foot abscess, with MSSA 2. Osteomyelitis with MSSA 3. Uncontrolled diabetes. 4. Abdominal pain. 5. Constipation. Plan. Continue patient on current therapyn. Continue patient on IV cefazolin. I reviewed labs, including cultures, with MSSA, and be strep. I appreciate case filler evaluation. Patient needs incision and drainage of left foot abscess Dressing according to case filler recommendation Endocrinology evaluation for adequate blood sugar [...] g (premix), 2,000 mg, Intravenous, Q8H, Mady Tejada CNP, Last Rate: 100 mL/hr at 11/19/20 [...] (NS), 0-150 mL/hr, Intravenous, PRN, Tanja Whitmore, [facility],PharmD, New Bag at 11/11/20 1615 PMH/PSH/SH/FH reviewed, [...] excoriations Musculoskeletal: No joint swelling, non tender APPLE PRESS OPERATOR: Awake, and Ox3 Wound: Foot with description [...] retained stool in the proximal colon and cgjbl-uo-thuparxv amount of retained stool in the distal [...] No tendon tear or tenosynovitis is seen. [facility]/[email or web address] Workstation ID: [id number] MR Foot Right With And Without Contrast Final Result 1. Prior forefoot resection. Cellulitis of the surgical stump is seen associated with small ulceration. 2. No abscess. 3. No MR signs of osteomyelitis. 4. Luie-oy-pjkfhfml mid/hindfoot osteoarthritis. 5. Remote sprains of the ATFL and deep fibers of the deltoid ligament, as above. [facility]/[employer] Workstation ID: [id number] [id number] Foot Left 3+ [...] by contextual derivation. * Jai Kumar Jr., DP - 11/19/2020 3:54 PM EST Assessment: (Patient [...] 3602 [Urine:3600; Blood:2] I/O this shift: In: 2098.9 [I.V.:2098.9] Out: - Objective Vascular: DP/PT pulses are [...] worker was advised to sent referral to [facility]. Referral faxed. Message left for [place]. * Joan Trejo LISW - 11/19/2020 2:31 [...] vac. Patient would like to go home. [facility] notified to check him home infusion benefits. Care coordination following. * Scarlett German - 11/19/2020 12:12 PM EST DISCHARGE PLAN PROGRESS NOTE Date: 11/19/2020 Time: 12:12 PM Patient Name: More Kingsley . Date of : 1965 Sex: Male Spoke with pt regarding [facility], #1 choice [facility] ([phone]). Spoke with [facility] and faxed free text to [phone] the [facility] referral and asked for a return call as soon as possible. Pt discharged possibly tomorrow. 13:18 - Rec'd call from [facility] with [facility] and they CANNOT accept pt due to lack of staffing. Will try # 2 - [facility] ([phone]). 13:21 - Called # 2& spoke to [place], Free text referral to fax [phone] @ 13:26. Informed Ranjana via secure chat. 15:25 - Called [facility] and Paola said they never rec'd fax sent at 13:26. Spoke with Ranjana and she said to move on to [facility]'s 2 suggestions 1)[facility] @ [phone]. I called and they have NO staff at this time to service [place]. Moved on to 2) [facility], ([phone]) spoke with Evette and she said I could fax the referral ([phone]) which I did at 15:42. Scarlett German [...] . Prior Level of Function Level of Tully: Independent with ADLs and functional transfers Lives [...] read and concur with OT charting by SONIA Lezama and will update POC; continue to need clarification for R LE weight bearing and will contact Podiatry. * Joan Trejo LISW - 11/19/2020 10:48 AM EST DISCHARGE PLAN PROGRESS NOTE Date: 11/19/2020 Time: 10:49 AM Patient Name: More Kingsley Jr. Date [...] Kingsley Jr. Admit Date: 11/05/2020 MR #: [id number] : 1965 Current location: [facility] Physicians: Cheng Staples CNP (Family); Dr. Pinedo [...] 11/14: Continue current insulin doses. Consult health careers instructor for gastroparesis diet education. 11/18: CPM 11/19: [...] signed by Olga CHAVEZ 208:39 AM * Palak Arora MD - 11/19/2020 8:34 AM EST Hospital Medicine Inpatient Follow-up 11/19/2020 Palak Arora MD [facility] Patient: More Kingsley Jr. Date of : [...] Units 11/19/20 0424 11/18/20 0523 11/17/20 0627 SODIUM mmol/L 136 137 136 POTASSIUM [...] More Kingsley Jr. Admit Date: MR #: [id number] : 1965 Physicians: Cheng Staples CNP (Family); No ref. provider found (Referring) Assessment: Patient with 1. Left foot abscess, with MSSA 2. Osteomyelitis with MSSA 3. Uncontrolled diabetes. 4. Abdominal pain. 5. Constipation. Plan. Continue patient on current therapyn. Continue patient on IV cefazolin. I reviewed labs, including cultures, with MSSA, and be strep. I appreciate case filler evaluation. Patient needs incision and drainage of left foot abscess Dressing according to case filler recommendation Endocrinology evaluation for adequate blood sugar [...] g (premix), 2,000 mg, Intravenous, Q8H, Mady Tejada CNP, Last Rate: 100 mL/hr at 11/18/20 [...] (HumaLOG) injection 0-30 Units, 0-30 Units, Subcutaneous, [facility], Marvel Mcmillan MD, 0 Units at 11/16/20 [...] (NS), 0-150 mL/hr, Intravenous, PRN, Tanja Whitmore, [facility],PharmD, New Bag at 11/11/20 1615 PMH/PSH/SH/ reviewed, [...] retained stool in the proximal colon and aoile-tq-btqslmdb amount of retained stool in the distal [...] No tendon tear or tenosynovitis is seen. [employer] Workstation ID: [id number] MR Foot Right With And Without Contrast Final Result 1. Prior forefoot resection. Cellulitis of the surgical stump is seen associated with small ulceration. 2. No abscess. 3. No MR signs of osteomyelitis. 4. Tcno-sw-ziconwiv mid/hindfoot osteoarthritis. 5. Remote sprains of the ATFL and deep fibers of the deltoid ligament, as above. [facility]/[employer] Workstation ID: [id number] XR Foot Left 3+ [...] be extrapolated by contextual derivation. * Rosalinda Reyes, RD - 11/18/2020 1:23 PM EST . [...] follow. Rosalinda Reyes RDN, LD Dietitian's Office [phone] * Palak Arora MD - 11/18/2020 9:28 AM EST [facility] Medicine Inpatient H&P 11/18/2020 Palak Arora MD [facility] Patient: More Kingsley Jr. Date of : 1965 (55 y.o.) PCP: Cheng Staples, 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 Assessment More Kingsley is a 54 y.o. [...] days Lab Units 11/18/20 0511/17/20 0611/16/20 0603 SODIUM mmol/L 137 136 138 POTASSIUM mmol/L 3.8 3.9 3.7 CHLORIDE mmol/L 104 105 104 BUN mg/dL 12 11 10 CREATININE mg/dL 0.99 0.94 1.03 GLUCOSE mg/dL 136* 86 103* CALCIUM mg/dL 8.7 8.6 8.6 Results from last 7 days Lab Units 11/18/2052211/17/2062611/16/20 0603 WBC K/mcL 8.56 9.40 9.26 HGB [...] Kingsley Jr. Admit Date: 11/05/2020 MR #: [id number] : 1965 Current location: [facility] Physicians: Cheng Staples CNP (Family); Dr. Pinedo [...] 11/14: Continue current insulin doses. Consult health careers instructor for gastroparesis diet education. 11/18: CPM 2. [...] with you. Electronically signed by Olga Wheeler APRN-ROSALIA 208:39 AM * Marcella Bell MD - 11/17/2020 3:31 PM EST Patient Name: More Kingsley Jr. Admit Date: MR #: [id number] : 1965 Physicians: Cheng Staples CNP (Family); No ref. provider found (Referring) Assessment: Patient with 1. Left foot abscess, with MSSA 2. Osteomyelitis with MSSA 3. Uncontrolled diabetes. 4. Abdominal pain. 5. Constipation. Plan. Continue patient on current therapyn. Continue patient on IV cefazolin. I reviewed labs, including cultures, with MSSA, and be strep. I appreciate case filler evaluation. Patient needs incision and drainage of left foot abscess Dressing according to case filler recommendation Endocrinology evaluation for adequate blood sugar [...] concern for abscess noted. Exam: PACU Vitals 11/17/20 1135 BP: (!) 150/94 Pulse: 98 Resp: Temp: 98.5 F (36.9 C) SpO2: 94% Allergies: Patient has no known allergies. Current Facility-Administered Medications: acetaminophen (TYLENOL) tablet 650 mg, 650 mg, Oral, Q6H PRN, Jennifer Gamble CNP, 650 mg at 11/11/20 2343 ceFAZolin (ANCEF) IVPB 2 g (premix), 2,000 mg, Intravenous, Q8H, Mady Tejada CNP, Last Rate: 100 mL/hr at 11/17/20 [...] Nightly, Chuyita Arias MD, 25 Units at 11/16/20 205 insulin lispro (HumaLOG) injection 0-15 Units, [...] at 11/16/20 2354, 100 mL/hr at 11/16/20 235 lactated Ringers infusion, 100 mL/hr, Intravenous, Continuous, [...] (NS), 0-150 mL/hr, Intravenous, PRN, Tanja Whitmore [facility],PharmD, New Bag at 11/11/20 1615 PMH/PSH// reviewed, [...] excoriations Musculoskeletal: No joint swelling, non tender APPLE PRESS OPERATOR: Awake, and Ox3 Wound: Foot with description [...] retained stool in the proximal colon and liyer-th-gottiyxf amount of retained stool in the distal [...] No tendon tear or tenosynovitis is seen. [email or web address] Workstation ID: [id number] MR Foot Right With And Without Contrast Final Result 1. Prior forefoot resection. Cellulitis of the surgical stump is seen associated with small ulceration. 2. No abscess. 3. No MR signs of osteomyelitis. 4. Dpxt-fp-zkozrjxr mid/hindfoot osteoarthritis. 5. Remote sprains of the ATFL and deep fibers of the deltoid ligament, as above. [facility]/[employer] Workstation ID: [id number] XR Foot Left 3+ [...] Arias MD - 11/17/2020 10:29 AM EST [facility] Medicine Inpatient H&P 11/17/2020 Chuyita Arias MD [facility] Patient: More Kingsley Jr. Date of : 1965 (55 y.o.) PCP: Cheng Staples, 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 Assessment More Kingsley is a 54 y.o. [...] scale coverage Hypokalemia replaced with potassium chloride 12/23 No acute issues overnight Vital signs stable [...] retained stool in the proximal colon and iehtc-nr-qhgtwinu amount of retained stool in the distal [...] EST Progress Inpatient Follow-up 11/17/2020 Braeden Conte Meghann [facility] Patient: More Kingsley . Date of : [...] 33.21 kg/m Laboratory and Additional Data Reviewed: Reviewed:[id number]} * Marcella Bell MD - 11/16/2020 7:11 PM EST Patient Name: More Kingsley Jr. Admit Date: MR #: [id number] : 1965 Physicians: Cheng Staples CNP (Family); No ref. provider found (Referring) Assessment: Patient with 1. Left foot abscess, with MSSA 2. Osteomyelitis with MSSA 3. Uncontrolled diabetes. 4. Abdominal pain. 5. Constipation. Plan. Continue patient on current therapyn. Continue patient on IV cefazolin. I reviewed labs, including cultures, with MSSA, and be strep. I appreciate case filler evaluation. Patient needs incision and drainage of left foot abscess Dressing according to case filler recommendation Endocrinology evaluation for adequate blood sugar [...] mg, 650 mg, Oral, Q6H PRN, Jennifer Gamble, ROSALIA, 650 mg at 11/11/20 2343 ceFAZolin (ANCEF) IVPB 2 g (premix), 2,000 mg, Intravenous, Q8H, Mady Tejada CNP, Last Rate: 100 mL/hr at 11/16/20 [...] Chuyita Arias MD, 5,000 Units at 11/16/20 155 insulin glargine (LANTUS) injection 25 Units, 25 Units, Subcutaneous, Nightly, Chuyita Arias MD, 25 Units at 11/15/202052 insulin lispro (HumaLOG) injection 0-15 Units, 0-15 [...] Flako Pinedo MD, 4 mg at 11/11/20 2051 oxyCODONE-acetaminophen (PERCOCET) 5-325 mg per tablet 1 tablet, 1 tablet, Oral, Q4H PRN, Jean Farley MD, 1 tablet at 11/16/20 0939 pantoprazole (PROTONIX) EC tablet 40 mg, 40 mg, Oral, Daily, Chuyita Arias MD, 40 mg at 11/16/20 0941 sodium chloride 0.9% (NS), 0-150 mL/hr, Intravenous, PRN, Tanja Whitmore, [facility],PharmD, New Bag at 11/11/20 1615 PMH/PSH/SH/ reviewed, [...] excoriations Musculoskeletal: No joint swelling, non tender APPLE PRESS OPERATOR: Awake, and Ox3 Wound: Foot with description [...] retained stool in the proximal colon and kvyrl-lb-ughgalij amount of retained stool in the distal [...] 3. No MR signs of osteomyelitis. 4. Trex-ud-jngnzcho mid/hindfoot osteoarthritis. 5. Remote sprains of the [...] can be extrapolated by contextual derivation. * Braeden Conte DPM - 11/16/2020 11:27 AM EST Progress Inpatient Follow-up 11/16/2020 Braeden Conte DPM [facility] Patient: More Kingsley Jr. Date of : [...] 33.21 kg/m Laboratory and Additional Data Reviewed: Reviewed:[id number]} * Chuyita Arias MD - 11/16/2020 11:26 AM EST [facility] Medicine Inpatient H&P 11/16/2020 Chuyita Arias MD [facility] Patient: More Kingsley . Date of : 1965 (55 y.o.) PCP: Cheng Staples, 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 Assessment More Kingsley is a 54 y.o. [...] retained stool in the proximal colon and eoirq-th-zgkjxgzu amount of retained stool in the distal [...] More Kingsley Jr. Admit Date: MR #: [id number] : 1965 Physicians: Cheng Staples CNP (Family); No ref. provider found (Referring) Assessment: Patient with 1. Left foot abscess, with MSSA 2. Osteomyelitis with MSSA 3. Uncontrolled diabetes. 4. Abdominal pain. Plan. Continue patient on current therapyn. Continue patient on IV cefazolin. I reviewed labs, including cultures, with MSSA, and be strep. I appreciate case filler evaluation. Patient needs incision and drainage of left foot abscess Dressing according to case filler recommendation Endocrinology evaluation for adequate blood sugar [...] g (premix), 2,000 mg, Intravenous, Q8H, Mady Tejada CNP, Last Rate: 100 mL/hr at 11/15/20 [...] 25 Units, 25 Units, Subcutaneous, Nightly, Chuyita Airas MD, 25 Units at 11/14/20 2121 insulin [...] (NS), 0-150 mL/hr, Intravenous, PRN, Tanja Whitmore [facility],PharmD, New Bag at 11/11/20 1615 PMH/PS// reviewed, no change : Review of Systems: [...] retained stool in the proximal colon and gqjjz-eg-gadgsmsc amount of retained stool in the distal [...] No tendon tear or tenosynovitis is seen. [facility]/[email or web address] Workstation ID: [id number] MR Foot Right With And Without Contrast Final Result 1. Prior forefoot resection. Cellulitis of the surgical stump is seen associated with small ulceration. 2. No abscess. 3. No MR signs of osteomyelitis. 4. Kzni-zx-jbbdkiud mid/hindfoot osteoarthritis. 5. Remote sprains of the ATFL and deep fibers of the deltoid ligament, as above. [facility]/[employer] Workstation ID: [id number] XR Foot Left 3+ [...] can be extrapolated by contextual derivation. * Braeden Conte DPM - 11/15/2020 11:37 AM EST Progress Inpatient Follow-up 11/15/2020 Braeden Conte DPM [facility] Patient: More Kingsley Jr. Date of : [...] antibiotics. Patient sees Dr. Eric Stephenson his case filler at [facility] ([phone]) for wound care normally. Patient would like [...] to his home which is up by [facility]. Patient denies nausea vomiting fevers or chills [...] 33.21 kg/m Laboratory and Additional Data Reviewed: Reviewed:[id number]} * Chuyita Arias MD - 11/15/2020 11:19 AM EST [facility] Medicine Inpatient H&P 11/15/2020 Chuyita Arias MD [facility] Patient: More Kingsley Jr. Date of : 1965 (55 y.o.) PCP: Cheng Staples, 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 Assessment More Kingsley is a 54 y.o. [...] More Kingsley Jr. Admit Date: MR #: [id number] : 1965 Physicians: Cheng Staples CNP (Family); No ref. provider found (Referring) Assessment: Patient with 1. Left foot abscess, with MSSA 2. Osteomyelitis with MSSA 3. Uncontrolled diabetes. Plan. Continue patient on current therapyn. Continue patient on IV cefazolin. I reviewed labs, including cultures, with MSSA, and be strep. I appreciate case filler evaluation. Patient needs incision and drainage of left foot abscess Dressing according to case filler recommendation Endocrinology evaluation for adequate blood sugar [...] g (premix), 2,000 mg, Intravenous, Q8H, Mady Tejada CNP, Last Rate: 100 mL/hr at 11/14/20 [...] 3 mL, 3 mL, Inhalation, Q2H PRN,Flako iPnedo MD lactated Ringers infusion, 100 mL/hr, Intravenous, [...] (NS), 0-150 mL/hr, Intravenous, PRN, Tanja Whitmore, [facility],PharmD, New Bag at 11/11/20 1615 PMH/PSH/SH/ reviewed, [...] excoriations Musculoskeletal: No joint swelling, non tender APPLE PRESS OPERATOR: Awake, and Ox3 Wound: Foot with description [...] No tendon tear or tenosynovitis is seen. [employer] Workstation ID: [id number] MR Foot Right With And Without Contrast Final Result 1. Prior forefoot resection. Cellulitis of the surgical stump is seen associated with small ulceration. 2. No abscess. 3. No MR signs of osteomyelitis. 4. Mozd-ra-tjeapfxi mid/hindfoot osteoarthritis. 5. Remote sprains of the ATFL and deep fibers of the deltoid ligament, as above. [employer] Workstation ID: [id number] XR Foot Left 3+ [...] be extrapolated by contextual derivation. * Elise Schreiber OTR/L - 11/14/2020 3:41 PM EST Occupational [...] foot after Dr Cherry had reported to [facility] pt can heel WB only through [...] . Prior Level of Function Level of Tully: Independent with ADLs and functional transfers Lives [...] Occupational Therapy Plan of Care. * Joan Trjeo LISW - 11/14/2020 2:30 PM EST DISCHARGE [...] Arias MD - 11/14/2020 10:45 AM EST [facility] Medicine Inpatient H&P 11/14/2020 Chuyita Arias MD [facility] Patient: More Kingsley Jr. Date of : 1965 (55 y.o.) PCP: Cheng Staples, 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 Assessment More Kingsley is a 54 y.o. [...] from last 7 days Lab Units 11/14/20 03211/13/2052611/12/20 0257 SODIUM mmol/L 135 135 135 POTASSIUM mmol/L 4.0 4.0 4.1 CHLORIDE mmol/L 105 105 104 BUN mg/dL 14 13 10 CREATININE mg/dL 0.97 0.85 0.84 GLUCOSE mg/dL 153* 176* 86 CALCIUM mg/dL 7.9* 7.8* 8.0* Results from last 7 days Lab Units 11/14/20 03211/13/2052611/12/20 0257 WBC K/mcL 10.09 10.51 13.36* HGB g/dL 10.0* 10.1* 10.1* HCT % 33.3* 32.7* 32.7* PLT K/mcL 583* 545* 497* Invalid input(s): LABALBU CULTURES: Reviewed 10:45 AM IMAGING: Reviewed 10:45 AM * Ryan Conte DPM - 11/14/2020 10:39 AM EST Progress Inpatient Follow-up 11/14/2020 Ryan Conte DPM [facility] Patient: More Kingsley Jr. 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 [place] on the wound VAC was approximately a [...] 33.21 kg/m Laboratory and Additional Data Reviewed: Reviewed:[id number]} * Nam Briggs PA-C - 11/14/2020 9:54 AM EST Patient ID: Patient Name: More Kingsley Jr. Admit Date: 11/05/2020 MR #: [id number] : 1965 Current location: [facility] Physicians: Cheng Staples CNP (Family); Dr. Pinedo [...] 11/14: Continue current insulin doses. Consult health careers instructor for gastroparesis diet education. 2. Education: Reviewed [...] you. Electronically signed by: Nam Briggs PA-C, [facility] 11/14/20 9:55 AM * Marcella Bell MD - 11/13/2020 8:26 PM EST Patient Name: More Kingsley Jr. Admit Date: MR #: [id number] : 1965 Physicians: Cheng Staples, ROSALIA (Family); No ref. provider found (Referring) Assessment: Patient with 1. Left foot abscess, with MSSA 2. Suspicion for osteomyelitis 3. Uncontrolled diabetes. Plan. Continue patient on current therapyn. Continue patient on IV cefazolin. I reviewed labs, including cultures, with MSSA, and be strep. I appreciate case filler evaluation. Patient needs incision and drainage of left foot abscess Dressing according to case filler recommendation Endocrinology evaluation for adequate blood sugar [...] g (premix), 2,000 mg, Intravenous, Q8H, Mady Tejada CNP, Last Rate: 100 mL/hr at 11/13/20 [...] Nightly, Chuyita Arias MD, 25 Units at 11/12/202111 insulin lispro (HumaLOG) injection 0-15 Units, 0-15 [...] Pinedo MD, Last Rate: 100 mL/hr at 11/13/201824, 100 mL/hr at 11/13/201824 lactated Ringers infusion, [...] (NS), 0-150 mL/hr, Intravenous, PRN, Tanja Whitmore, [facility],PharmD, New Bag at 11/11/20 1615 PMH/PSH/SH/FH reviewed, [...] excoriations Musculoskeletal: No joint swelling, non tender APPLE PRESS OPERATOR: Awake, and Ox3 Wound: Foot with description [...] 3. No MR signs of osteomyelitis. 4. Sqlk-vi-qimfbqko mid/hindfoot osteoarthritis. 5. Remote sprains of the ATFL and deep fibers of the deltoid ligament, as above. [facility]/[employer] Workstation ID: [id number] XR Foot Left 3+ [...] Arias MD - 11/13/2020 11:32 AM EST [facility] Medicine Inpatient H&P 11/13/2020 Chuyita Arias MD [facility] Patient: More Kingsley Jr. Date of : 1965 (55 y.o.) PCP: Cheng Staples, 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 Assessment More Kingsley is a 54 y.o. [...] Sitting) Pulse 90 Temp 98.3 F (36.8 C) (Oral) Resp 14 Ht 5' 10 [...] Results from last 7 days Lab Units 11/13/2052611/12/207 11/11/20 0537 SODIUM mmol/L 135 135 137 POTASSIUM mmol/L 4.0 4.1 4.0 CHLORIDE mmol/L 105 104 106 BUN mg/dL 13 10 8 CREATININE mg/dL 0.85 0.84 1.00 GLUCOSE mg/dL 176* 86 108* CALCIUM mg/dL 7.8* 8.0* 8.1* Results from last 7 days Lab Units 11/13/2052611/12/207 11/11/20 0537 WBC K/mcL 10.51 13.36* 11.96* HGB g/dL 10.1* 10.1* 11.2* HCT % 32.7* 32.7* 36.2* PLT K/mcL 545* 497* 511* Invalid input(s): LABALBU CULTURES: Reviewed 11:32 AM IMAGING: Reviewed 11:32 AM * Marvel Mcmillan MD - 11/13/2020 9:22 AM EST Patient ID: Patient Name: More Kingsley Jr. Admit Date: 11/05/2020 MR #: [id number] : 1965 Current location: [facility] Physicians: Cheng Staples CNP (Family); Dr. Pinedo [...] 167---151---137---136 11/11: 115---106---86---104 11/12: 71---153---161---159 11/13 162---221---186---189 Plan: 1. Rx changes: [...] patient with you. * Jai Kumar Jr., DPM - 11/12/2020 3:23 PM EST Assessment: (Patient [...] eyes, with long-term current use of insulin ([facility]) * Marcella Bell MD - 11/12/2020 2:05 PM EST Patient Name: More Kingsley Jr. Admit Date: MR #: [id number] : 1965 Physicians: Cheng Staples CNP (Family); No ref. provider found (Referring) Assessment: Patient with 1. Left foot abscess, with MSSA 2. Suspicion for osteomyelitis 3. Uncontrolled diabetes. Plan. Continue patient on current therapyn. Continue patient on IV cefazolin. I reviewed labs, including cultures, with MSSA, and be strep. I appreciate case filler evaluation. Patient needs incision and drainage of left foot abscess I reviewed MRI of the foot, with Extensive cellulitis, and concern for septic arthroplathy and osteomyelitis of the left foot Dressing according to case filler recommendation Endocrinology evaluation for adequate blood sugar [...] g (premix), 2,000 mg, Intravenous, Q8H, Mady Tejada CNP, Last Rate: 100 mL/hr at 11/12/20 [...] SANCHO, Chuyita Arias MD, 5,000 Units at 11/12/20 [...] (NS), 0-150 mL/hr, Intravenous, PRN, Tanja Whitmore, [facility],PharmD, New Bag at 11/11/20 1615 PMH/PSH/SH/FH reviewed, [...] excoriations Musculoskeletal: No joint swelling, non tender APPLE PRESS OPERATOR: Awake, and Ox3 Wound: Foot with description [...] No tendon tear or tenosynovitis is seen. [facility]/[employer] Workstation ID: [id number] MR Foot Right With And Without Contrast Final Result 1. Prior forefoot resection. Cellulitis of the surgical stump is seen associated with small ulceration. 2. No abscess. 3. No MR signs of osteomyelitis. 4. Twrs-rp-iawqusdl mid/hindfoot osteoarthritis. 5. Remote sprains of the ATFL and deep fibers of the deltoid ligament, as above. [facility]/[employer] Workstation ID: [id number] XR Foot Left 3+ [...] Arias MD - 11/12/2020 11:38 AM EST [facility] Medicine Inpatient H&P 11/12/2020 Chuyita Arias MD [facility] Patient: More Kingsley Jr. Date of : 1965 (55 y.o.) PCP: Cheng Staples, 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 Assessment More Kingsley is a 54 y.o. [...] Results from last 7 days Lab Units 11/12/2025611/11/20 0537 11/10/204 SODIUM mmol/L 135 137 136 POTASSIUM mmol/L [...] IMAGING: Reviewed 11:38 AM * Iliana Aggarwal, WORD PROCESSING OPERATOR - 11/12/2020 10:25 AM EST Physical Therapy [...] Stand: Min Stand Pivot Transfers: Contact guard Child Support Case Officer: Wheeled walker Skilled Intervention: Pt required vc for hand placement and for adherence to nwb status once standing. Pt able to take 3-4 small hops to pivot from bed to chair. Exercise Ankle Pumps: x15 RLE Straight Leg Raise: x15 odc Heelslides: x15 doc Hip Abduction: x15 doc [...] . Prior Level of Function Level of Tully: Independent with ADLs and functional transfers Lives [...] of Physical Therapy Plan of Care. * Rand Riley, MARIAH - 11/12/2020 10:10 AM EST Occupational Therapy [...] . Prior Level of Function Level of Tully: Independent with ADLs and functional transfers Lives [...] of Occupational Therapy Plan of Care. * Olga Padgett RD - 11/12/2020 9:41 [...] as needed while in-house. Olga Padgett RDN, LD * Olga Wheeler CNP - 11/12/2020 8:45 AM EST Patient ID: Patient Name: More Kingsley Jr. Admit Date: 11/05/2020 MR #: [id number] : 1965 Current location: [facility] Physicians: Cheng Staples CNP (Family); Dr. Pinedo [...] More Kingsley Jr. Admit Date: MR #: [id number] : 1965 Physicians: Cheng Staples CNP (Family); No ref. provider found (Referring) Assessment: Patient with 1. Left foot abscess 2. Suspicion for osteomyelitis 3. Uncontrolled diabetes. Plan. Continue patient on current therapyn. Continue patient on IV cefazolin. I reviewed labs, including cultures, with MSSA, and be strep. I appreciate case filler evaluation. Patient needs incision and drainage of left foot abscess I reviewed MRI of the foot, with Extensive cellulitis, and concern for septic arthroplathy and osteomyelitis of the left foot Dressing according to case filler recommendation Endocrinology evaluation for adequate blood sugar [...] g (premix), 2,000 mg, Intravenous, Q8H, Mady Tejada CNP, Last Rate: 100 mL/hr at 11/11/20 [...] injection 5,000 Units, 5,000 Units, Subcutaneous, Q8H [facility], Chuyita Arias MD, 5,000 Units at 11/11/20 0500 insulin glargine (LANTUS) injection 22 Units, 22 Units, Subcutaneous, Nightly, Nam Brgigs PA-C insulin lispro (HumaLOG) injection 0-15 Units, [...] (NS), 0-150 mL/hr, Intravenous, PRN, Tanja Whitmore, [facility],PharmD PMH/PSH/SH/ reviewed, no change : Review of [...] excoriations Musculoskeletal: No joint swelling, non tender APPLE PRESS OPERATOR: Awake, and Ox3 Wound: Foot with description [...] No tendon tear or tenosynovitis is seen. MPH/Issuu Workstation ID: [id number] MR Foot Right With And Without Contrast Final Result 1. Prior forefoot resection. Cellulitis of the surgical stump is seen associated with small ulceration. 2. No abscess. 3. No MR signs of osteomyelitis. 4. Odfo-en-ebadgirp mid/hindfoot osteoarthritis. 5. Remote sprains of the ATFL and deep fibers of the deltoid ligament, as above. MPH/Glasses Direct Workstation ID: [id number] Foot Left 3+ [...] Arias MD - 11/11/2020 12:06 PM EST [facility] Medicine Inpatient H&P 11/11/2020 Chuyita Arias MD [facility] Patient: More Kingsley Jr. Date of : 1965 (55 y.o.) PCP: Cheng Staples, 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 Assessment More Kingsley is a 54 y.o. [...] Kingsley Jr. Admit Date: 11/05/2020 MR #: [id number] : 1965 Current location: [facility] Physicians: Cheng Staples CNP (Family); Dr. Pinedo [...] PA-C, MPAS 11/11/20 10:50 AM * Tricia Underwood PTA - 11/11/2020 8:43 AM EST Physical Therapy [...] TE) HEP educated for DOC LE therex: 2w98-98 reps In each direction to improve ms and carryover of improved mobility. Print out provided as well. Pt verbally agrees to perform most as long as no back pain. Home Living Type of Home: House Home Layout: One level, Stairs to enter with rails(5 BRINDA, B HR) Prior Level of Function Level of Tully: Independent with ADLs and functional transfers Lives [...] Physical Therapy Plan of Care. * Leanne Cherry, NATHANAELM - 2020 3:40 PM EST Progress Inpatient Follow-up 2020 Leanne Cherry DPM [facility] Patient: More Kingsley Jr. Date of : [...] calf pain. Laboratory and Additional Data Reviewed: Reviewed:[id number]} * Marcella Bell MD - 2020 2:47 PM EST Patient Name: More Kingsley Jr. Admit Date: MR #: [id number] : 1965 Physicians: Cheng Staples CNP (Family); No ref. provider found (Referring) Assessment: Patient with 1. Left foot abscess 2. Suspicion for osteomyelitis 3. Uncontrolled diabetes. Plan. Continue patient on current therapyn. Continue patient on IV cefazolin. I reviewed labs, including cultures, with MSSA, and be strep. I appreciate case filler evaluation. Patient needs incision and drainage of left foot abscess I reviewed MRI of the foot, with Extensive cellulitis, and concern for septic arthroplathy and osteomyelitis of the left foot Dressing according to case filler recommendation Endocrinology evaluation for adequate blood sugar [...] g (premix), 2,000 mg, Intravenous, Q8H, Mady Tejada CNP, Last Rate: 100 mL/hr at 11/10/20 [...] injection 5,000 Units, 5,000 Units, Subcutaneous, Q8H [facility], Chuyita Arias MD, 5,000 Units at 11/10/20 1402 [START ON 11/11/2020] insulin glargine (LANTUS) injection 25 Units, 25 Units, Subcutaneous, QAM, Marvel Mcmillan MD insulin glargine (LANTUS) injection 25 Units, 25 Units, Subcutaneous, Nightly, Marvel Mcmillan MD insulin lispro (HumaLOG) injection 0-15 Units, 0-15 Units, Subcutaneous, at bedtime, Jackusman Hair, 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, 2 Units at 11/06/20 2105 insulin lispro (HumaLOG) injection 0-30 Units, 0-30 Units, Subcutaneous, QAM AC, Marvle Mcmillan MD, 3 Units at 11/10/20 1048 [...] (NS), 0-150 mL/hr, Intravenous, PRN, Tanja Whitmore, RPh,PharmD PMH/PSH/SH/FH reviewed, no change : Review of [...] excoriations Musculoskeletal: No joint swelling, non tender APPLE PRESS OPERATOR: Awake, and Ox3 Wound: Foot with description [...] 3. No MR signs of osteomyelitis. 4. Rnvh-cc-wixscbvg mid/hindfoot osteoarthritis. 5. Remote sprains of the ATFL and deep fibers of the deltoid ligament, as above. MPH/Gl[employer] Direct Workstation ID: [id number] Foot Left 3+ [...] Arias MD - 2020 11:19 AM EST [facility] Medicine Inpatient H&P 2020 Chuyita Arias MD [facility] Patient: More Kingsley . Date of : 1965 (55 y.o.) PCP: Cheng Staples, 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 Assessment More Kingsley is a 54 y.o. [...] days Lab Units 11/10/20 0314 11/09/20 0519 11/08/20 0519 SODIUM mmol/L 136 135 135 POTASSIUM mmol/L [...] More Kingsley Jr. Admit Date: MR #: [id number] : 1965 Physicians: Cheng Staples CNP (Family); No ref. provider found (Referring) Assessment: Patient with 1. Left foot abscess 2. Suspicion for osteomyelitis 3. Uncontrolled diabetes. Plan. Continue patient on current therapyn. Continue patient on IV cefazolin. I reviewed labs, including cultures, with MSSA, and be strep. I appreciate case filler evaluation. Patient needs incision and drainage of left foot abscess I reviewed MRI of the foot, with Extensive cellulitis, and concern for septic arthroplathy and osteomyelitis of the left foot Dressing according to case filler recommendation Endocrinology evaluation for adequate blood sugar [...] g (premix), 2,000 mg, Intravenous, Q8H, Mady Tejada CNP, Last Rate: 100 mL/hr at 11/09/20 [...] [facility], Chuyita Arias MD, 5,000 Units at 11/09/20 [...] (NS), 0-150 mL/hr, Intravenous, PRN, Tanja Whitmore, [facility],PharmD PMH/PSH/SH/ reviewed, no change : Review of [...] excoriations Musculoskeletal: No joint swelling, non tender APPLE PRESS OPERATOR: Awake, and Ox3 Wound: Foot with description [...] No tendon tear or tenosynovitis is seen. MPH/Issuu Workstation ID: [id number] MR Foot Right With And Without Contrast Final Result 1. Prior forefoot resection. Cellulitis of the surgical stump is seen associated with small ulceration. 2. No abscess. 3. No MR signs of osteomyelitis. 4. Hlgk-zc-ksavkxcc mid/hindfoot osteoarthritis. 5. Remote sprains of the ATFL and deep fibers of the deltoid ligament, as above. MPH/Gl[employer] Direct Workstation ID: [id number] Foot Left 3+ [...] Progress Inpatient Follow-up 11/09/2020 Leanne Cherry DPM [facility] Patient: More Kingsley Jr. Date of : [...] calf pain. Laboratory and Additional Data Reviewed: Reviewed:[id number]} * Chuyita Arias MD - 11/09/2020 11:50 AM EST [facility] Medicine Inpatient H&P 11/09/2020 Chuyita Arias MD [facility] Patient: More Kingsley Jr. Date of : 1965 (54 y.o.) PCP: Cheng Staples, 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 Assessment More Kingsley is a 54 y.o. [...] Kingsley Jr. Admit Date: 11/05/2020 MR #: [id number] : 1965 Current location: [facility] Physicians: Cheng Staples CNP (Family); Dr. Pinedo [...] More Kingsley Jr. Admit Date: MR #: [id number] : 1965 Physicians: Cheng Staples CNP (Family); No ref. provider found (Referring) Assessment: Patient with 1. Left foot abscess 2. Suspicion for osteomyelitis 3. Uncontrolled diabetes. Plan. Continue patient on current therapy Okay to DC IV vancomycin Okay to DC IV Zosyn. Start patient on IV cefazolin. I reviewed labs, including cultures, with MSSA, and be strep. I appreciate case filler evaluation. Patient needs incision and drainage of left foot abscess I reviewed MRI of the foot, with Extensive cellulitis, and concern for septic arthroplathy and osteomyelitis of the left foot Dressing according to case filler recommendation Endocrinology evaluation for adequate blood sugar [...] g (premix), 2,000 mg, Intravenous, Q8H, Mady Tejada CNP, Last Rate: 100 mL/hr at 11/08/20 [...] (NS), 0-150 mL/hr, Intravenous, PRN, Tanja Whitmore, [facility],PharmD PMH/PSH/SH/ reviewed, no change : Review of [...] excoriations Musculoskeletal: No joint swelling, non tender APPLE PRESS OPERATOR: Awake, and Ox3 Wound: Foot with description [...] No tendon tear or tenosynovitis is seen. MPH/Issuu Workstation ID: [id number] MR Foot Right With And Without Contrast Final Result 1. Prior forefoot resection. Cellulitis of the surgical stump is seen associated with small ulceration. 2. No abscess. 3. No MR signs of osteomyelitis. 4. Ukbm-ck-ztyanhch mid/hindfoot osteoarthritis. 5. Remote sprains of the ATFL and deep fibers of the deltoid ligament, as above. MPH/Gl[employer] Direct Workstation ID: [id number] Foot Left 3+ [...] Arias MD - 11/08/2020 12:13 PM EST [facility] Medicine Inpatient H&P 11/08/2020 Chuyita Arias MD [facility] Patient: More Kingsley . Date of : 1965 (54 y.o.) PCP: Cheng Staples, 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 Assessment More Kingsley is a 54 y.o. [...] days Lab Units 11/08/20 0519 11/06/20 0548 11/05/206 SODIUM mmol/L 135 132* 130* POTASSIUM mmol/L [...] Kingsley Jr. Admit Date: 11/05/2020 MR #: [id number] : 1965 Current location: [facility] Physicians: Cheng Staples CNP (Family); Dr. Pinedo [...] Progress Inpatient Follow-up 11/08/2020 Ryan Conte DPM [facility] Patient: More Kingsley Jr. Date of : [...] calf pain. Laboratory and Additional Data Reviewed: Reviewed:[id number]} * Marcella Bell MD - 11/07/2020 7:38 PM EST Patient Name: Moer Kingsley Jr. Admit Date: MR #: [id number] : 1965 Physicians: Cheng Staples, 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 (Family); No ref. provider found (Referring) Assessment: Patient with 1. Left foot abscess 2. Suspicion for osteomyelitis 3. Uncontrolled diabetes. Plan. Continue patient on current therapy Okay to DC IV vancomycin Okay to DC IV Zosyn. Start patient on IV cefazolin. I reviewed labs, including cultures, with MSSA, and be strep. I appreciate case filler evaluation. Patient needs incision and drainage of left foot abscess I reviewed MRI of the foot, with Extensive cellulitis, and concern for septic arthroplathy and osteomyelitis of the left foot Dressing according to case filler recommendation Endocrinology evaluation for adequate blood sugar control We will continue to follow with you. Subjective: Patient was reevaluated again today, with no new symptoms, no fever, podiatry has done some debridement at the bedside already. Exam: PACU Vitals 11/07/20 1931 BP: (!) 148/91 Pulse: (!) 103 Resp: 16 Temp: 97.4 F (36.3 C) SpO2: 92% Allergies: Patient has no known allergies. Current Facility-Administered Medications: acetaminophen (TYLENOL) tablet 650 mg, 650 mg, Oral, Q6H PRN, Jennifer Gamble CNP, 650 mg at 11/06/20 2104 ceFAZolin (ANCEF) IVPB 2 g (premix), 2,000 mg, Intravenous, Q8H, Mady Tejada CNP, Last Rate: 100 mL/hr at 11/07/20 [...] Pinedo MD, Last Rate: 100 mL/hr at 11/07/20 193, 100 mL/hr at 11/07/201930 naloxone (NARCAN) injection [...] Pinedo MD, 40 mEq at 11/06/20 0902 PMH/PSH/SH/FH reviewed, no change : Review of [...] excoriations Musculoskeletal: No joint swelling, non tender APPLE PRESS OPERATOR: Awake, and Ox3 Wound: Foot with description [...] No tendon tear or tenosynovitis is seen. MPH/Tunes.comv Workstation ID: [id number] MR Foot Right With And Without Contrast Final Result 1. Prior forefoot resection. Cellulitis of the surgical stump is seen associated with small ulceration. 2. No abscess. 3. No MR signs of osteomyelitis. 4. Dnxs-zb-hvdyzdzc mid/hindfoot osteoarthritis. 5. Remote sprains of the ATFL and deep fibers of the deltoid ligament, as above. MPH/Glasses Direct Workstation ID: [id number] Foot Left 3+ [...] Inpatient Progress Note 11/07/2020 Leanne Cherry DPM [facility] Patient: More Kingsley Jr. Date of : [...] Farley MD - 11/07/2020 11:01 AM EST [facility] Medicine Inpatient H&P 11/07/2020 Jean Farley MD [facility] Patient: More Kingsley Jr. Date of : 1965 (54 y.o.) PCP: Cheng Staples, 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 Assessment More Kingsley is a 54 y.o. [...] foot abscess Podiatry is following Continue with Yokastan and vancomycin Infectious diseases following Acute renal [...] 7 days Lab Units 11/06/20 0548 11/05/20 193 SODIUM mmol/L 132* 130* POTASSIUM mmol/L 3.8 3.3* CHLORIDE mmol/L 104 97* BUN mg/dL 36* 42* CREATININE mg/dL 1.54* 1.82* GLUCOSE mg/dL 281* 309* CALCIUM mg/dL 7.7* 8.2* Results from last 7 days Lab Units 11/06/20 0548 11/05/201935 WBC K/mcL 15.27* 15.85* HGB g/dL 10.8* 11.9* HCT % 34.1* 37.7* PLT K/mcL 248 274 Results from last 7 days Lab Units 11/05/20 2211 11/05/20 1936 TROPONIN I ng/L <15 <15 Results from last 7 days Lab Units 11/05/20 193 ALK PHOS U/L 95 BILIRUBIN TOTAL mg/dL 0.9 TOTAL PROTEIN g/dL 8.1* ALTR U/L 16 AST U/L 26 CULTURES: Reviewed 11:01 AM IMAGING: Reviewed 11:01 AM * Marvel Mcmillan MD - 11/07/2020 9:05 AM EST Patient ID: Patient Name: More Kingsley Jr. Admit Date: 11/05/2020 MR #: [id number] : 1965 Current location: [facility] Physicians: Cheng Staples CNP (Family); Dr. Pinedo [...] you. Marvel Mcmillan MD * Rafat Miller, [facility],PharmD - 11/07/2020 8:06 AM EST PHARMACOTHERAPY NOTE: Antimicrobial Therapy Initiation Assessment / Plan: More Kingsley . is a 54 y.o. male initiated on [...] 11/05/20 105 kg (231 lb 7.7 oz) [place] body weight: 73 kg (160 lb 15 [...] seen Pharmacist: Rafat Miller RPh,PharmD Contact Number: [phone] * Jean Farley MD - 11/06/2020 9:18 AM EST [facility] Inpatient H&P 11/06/2020 Jean Farley MD [facility] Patient: More Kingsley Date of : 1965 (54 y.o.) PCP: Cheng Staples, 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 Assessment More Kingsley is a 54 y.o. [...] IMAGING: Reviewed 9:19 AM * Jose Read [facility],PharmD - 11/05/2020 8:47 PM EST PHARMACOTHERAPY NOTE: [...] 11/05/20 105 kg (231 lb 7.7 oz) [place] body weight: 73 kg (160 lb 15 oz) Adjusted ideal body weight: 85.8 kg (189 lb 2.5 oz) Labs include: WBC (K/mcL) Date Value 11/05/2020 15.85 (H) Creatinine (mg/dL) Date Value 11/05/2020 1.82 (H) Estimated Creatinine Clearance: 48.5 mL/min (A) (by C-G formula based on SCr of 1.82 mg/dL (H)). Patient Tmax (last 24 hours): 99 F . Micro: pending Pharmacist: Jose Read RPh,PharmD Contact Number: [phone] documented in this encounter* Phu Buck RN - 11/20/2020 8:44 AM EST 11/20/2020 Call from Frances in [facility] this am confirming that pt is out of service area for [facility] andPharmacy. This RN had notified CM team of same on 11/19. Patient lives in [place], [place] so CM sendingreferral to [place]. [facility] and IV Infusion: Pt lives outside of the [facility] area for both Home Health and Pharmacy. documented in this encounter* Monica Jalloh, ISAIAS - 12/19/2020 2:30 PM EST Nurse wore gloves and mask while taking care of patient. Patient wearing mask at all times while staff in the room. * Marcella Bell MD - 12/19/2020 2:21 PM EST Patient Name: More Kingsley Jr. Admit Date: MR #: [id number] : 1965 Physicians: Cheng Staples CNP (Family); [...] MSSA, and be strep. Dressing according to case filler recommendation Endocrinology evaluation for adequate blood sugar [...] cultures, bone culture with no growth. Follow-up case filler. I reviewed CBC, and C-reactive protein with 10.9 kidneys BUN and creatinine 9 and 0.72 Follow-up in 3 weeks. Okay with surgical shoe. Subjective: Patient is being reevaluated again today, he was followed in [facility] in the month of October 2020, at that time he had presented with left foot swelling and redness and alsowith some draining pus. He was evaluated and found with abscess of the left foot, and osteomyelitis. Patient then had case filler debridement and drainage. Wound culture then had [...] excoriations Musculoskeletal: No joint swelling, non tender APPLE PRESS OPERATOR: Awake, and Ox3 PICC line in place. [...] and PT pulses nonpalpable secondary to edema. LUBRICATION SERVICER is brisk to distal digits. Gross sensation [...] up in 2 weeks. Leanne Cherry DPM, MS Podiatric Physician and Surgeon Biopsy Timeout: Verbal [...] More Kingsley Jr. Admit Date: MR #: [id number] : 1965 Physicians: Cheng Staples CNP (Family); No ref. provider found (Referring) Assessment: Patient with 1. Left foot abscess, with MSSA 2. Osteomyelitis with MSSA 3. Uncontrolled diabetes. 4. Abdominal pain. 5. Constipation. Plan. Continue patient on current therapy. Status post IV cefazolin. Had antibiotics for more than 8 weeks. I reviewed labs, including cultures, with MSSA, and be strep. Dressing according to case filler recommendation Endocrinology evaluation for adequate blood sugar control We will continue to follow with you. Status post debridement. Reviewed previous bone cultures with MSSA. I reviewed labs. I reviewed CT scan of the abdomen and pelvis, with moderate large amount of retained stool in the proximal colon. Status post incision and drainage of the left ankle foot. Follow-up case filler. Follow-up in 3 to 4 weeks. I reviewed bone biopsy on fifth February with no growth I discussed with the case filler on management plan. Dr. Cherry, scheduling for reconstruction of the left foot. Okay to switch to p.o. Keflex for the next 2 weeks. Okay to DC PICC line. Follow-up x-ray of the left foot. Subjective: Patient is being reevaluated again today, he was followed in [facility] in the month of October 2020, at that time he had presented with left foot swelling and redness and alsowith some draining pus. He was evaluated and found with abscess of the left foot, and osteomyelitis. Patient then had case filler debridement and drainage. Wound culture then had [...] the left [place]arc[place] foot area by the case filler. He is not complaining of any new [...] excoriations Musculoskeletal: No joint swelling, non tender APPLE PRESS OPERATOR: Awake, and Ox3 PICC line in place. [...] and PT pulses nonpalpable secondary to edema. LUBRICATION SERVICER is brisk to distal digits. Gross sensation [...] with transportation. Patient has been driving from [facility], which takes him 1.5 hours. Patient would [...] concerns regarding his care. Leanne Cherry DPM, MSBS Podiatric Physician and Surgeon * Monica Jalloh [...] distancing purposes. documented in this encounter* Mady Tejada CNP - 01/26/2021 6:21 PM EST Patient Name: More Knigsley Jr. Admit Date: MR #: [id number] : 1965 Physicians: Cheng Staples CNP (Family); [...] on tissue exam 11/18/20 Dressing according to case filler recommendation - currently with VAC dressing Status post debridement, I&D Follow up bone biopsy and wound culture 12/27/20 with no growth Continue working on blood sugar control (last A1c 8.2) Md Ophthalmologist Dr. Cherry planning reconstruction of the left [...] wound clinic today, also coming to see case filler. There is someincreased swelling to the base [...] excoriations Musculoskeletal: No joint swelling, non tender APPLE PRESS OPERATOR: Awake, and Ox3 Wound: 3/5 . ---> [...] More Kingsley Jr. Admit Date: MR #: [id number] : 1965 Physicians: Cheng Staples CNP (Family); [...] drainage of the left ankle foot. Follow-up case filler. Follow-up in 3 to 4 weeks. I [...] was noted. Patient scheduled to see the case filler Dr. Waller on second opinion, suggest been recommended for constructive foot surgery.. Subjective: Patient is being reevaluated again today, he was followed in [facility] in the month of October 2020, at that time he had presented with left foot swelling and redness and alsowith some draining pus. He was evaluated and found with abscess of the left foot, and osteomyelitis. Patient then had case filler debridement and drainage. Wound culture then had [...] the left Charcot foot area by the case filler. 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 June 28, 2025 9:55am PAD (peripheral artery disease) June 282024 9:55am Chief Complaint Admit Date Ref by Nii, right lower extremity PVD June 28, 2025 9:55am I73.9, ADDED ON 06/28/25 11:30A June 11:23am PAD w/ Non Healing Diabetic Ulcer July 09, 2025 8:15am Chief Complaint Admit Date Ref by Nii, right lower extremity PVD June 28, 2025 9:55am I73.9, ADDED ON 06/28/25 11:30A June 11:23am PAD w/ Non Healing Diabetic Ulcer July 09, 2025 8:15am PAD w/ Non Healing Diabetic Ulcer July 16, 2025 12:00am I65.23 August 22, 2025 8: 16am Additional Source Comments (unrecognized sect ion and content) No Status Records FoundNo Status Records FoundNo Status Records FoundNo Status Records FoundNo Status Records FoundNo Status Records FoundNo Status Records FoundNo Status Records FoundNo Status Records FoundNo Status Records FoundNo Status Records FoundNo Status Records Found INFORMATION SOURCE (unrecogn ized section and content) DATE CREATED AUTHOR 01/10/2019 [facility] DATE CREATED AUTHOR AUTHOR'S ORGANIZ ATION 11/21/2020 [facility] DATE CREATED AUTHOR AUTHOR'S ORGANIZ ATION 02/07/2021 [facility] DATE CREATED AUTHOR AUTHOR'S ORGANIZ ATION 02/11/2021 [facility] DATE CREATED AUTHOR AUTHOR'S ORGANIZ ATION 04/04/2021 [facility] DATE CREATED AUTHOR AUTHOR'S ORGANIZ ATION 03/22/2023 [facility] DATE CREATED AUTHOR AUTHOR'S ORGANIZ ATION 03/13/2024 [facility] DATE CREATED AUTHOR AUTHOR'S ORGANIZ ATION 04/22/2025 [facility] DATE CREATED AUTHOR AUTHOR'S ORGANIZ ATION 05/20/2025 [facility] DATE CREATED AUTHOR AUTHOR'S ORGANIZ ATION 08/11/2025 [facility] DATE CREATED AUTHOR AUTHOR'S ORGANIZ ATION 08/13/2025 [facility] DATE CREATED AUTHOR AUTHOR'S ORGANIZ ATION 08/27/2025 [facility] Reason for Visit (unrecogniz ed section and content) Reason Comments Wound Check Specialty Diagnoses / Procedures Referred By Contac t Referred To Contact Wound Care Diagnoses Visit for wound check Lakshmi Figueroa APRN-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 [address] [place] [address] Phone: tel: fax: [facility] [address] [place] [address] Phone: tel: fax: Referral ID Status Reason Start Date Expiration Date Visits Requested Visits Authorized [id number] Pending Review Specialty Services Required 03/04/2025 03/04/2026 1 1 Status Reason Specialty Diagnoses / Procedures Referre d By Contact Referred To Contact Diagnoses Secondary DM with DKA (HCC) Left foot cellulitis; DKA Reason Comments Crystalizer Operator - Other Dr Yoon's offi ce/request for office note Reason Comments Care Coordination Gastroparesis clinic : chart review; new patient call Reason Comments Wound Check Specialty Diagnoses / Procedures Referred By Contac t Referred To Contact Wound Care Diagnoses Visit for wound check Lakshmi Figueroa APRN-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 [address] [place] [address] Phone: tel: fax: [facility] [address] [place] [address] Phone: tel: fax: Referral ID Status Reason Start Date Expiration Date Visits Requested Visits Authorized [id number] Pending Review Specialty Services Required 03/04/2025 03/04/2026 1 1 Reason Comments Care Coordination Appeal for GPOEM den ial Reason Comments Establish Care Specialty Diagnoses / Procedures Referred By Contac t Referred To Contact Internal Medicine Diagnoses Visit for wound check Hyperglycemia Lakshmi Figueroa APRN-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 [address] [place] [address] Phone: tel: fax: Vahe Solares MD [address] [place] [address] Phone: tel: fax: Referral ID Status Reason Start Date Expiration Date Visits Requested Visits Authorized [id number] Pending Review Specialty Services Required 03/04/2025 03/04/2026 1 1 Reason Comments Wound Check Specialty Diagnoses / Procedures Referred By Contac t Referred To Contact Wound Care Diagnoses Visit for wound check Lakshmi Figueroa APRN-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 [address] [place] [address] Phone: tel: fax: [facility] [address] [place] [address] Phone: tel: fax: Referral ID Status Reason Start Date Expiration Date Visits Requested Visits Authorized [id number] Pending Review Specialty Services Required 03/04/2025 03/04/2026 1 1 Reason Comments Diabetes Follow-up Back pain Reason Comments Med Change Request Reason Comments New Patient Specialty Diagnoses / Procedures Referred By Contac t Referred To Contact GENERAL SURGERY Diagnoses Gastroparesis new gp consult/empties Procedures OFFICE/OUTPATIENT NEW HIGH MDM 60 MINUTES OFFICE/OUTPATIENT NEW MODERATE MDM 45 MINUTES OFFICE/OUTPATIENT NEW LOW MDM 30 MINUTES OFFICE/OUTPATIENT NEW SF MDM 15 MINUTES OFFICE/OUTPATIENT ESTABLISHED HIGH MDM 40 MIN NEW DDI PATIENT Tracy Yoon MD [address] [place] [address] Phone: tel: fax: Dolly Hyatt, PhD [address] [place] [address] Phone: tel: fax: Referral ID Status Reason Start Date Expiration Date Visits Re quested Visits Authorized [id number] Closed 09/28/2024 11/21/2024 2 2 Reason Onset Date Comments Results 05/22/2025 Reason Comments transitonal care visit Reason Onset Date Comments Results 07/17/2025 Reason Comments Follow-up Leanne Cherry DPM - 11/18/2020 12:30 PM Braeden Henderson DPM - 11/17/2020 9:39 AM Flako Diaz MD - 11/05/2020 8:29 PM EST H&P Notes (unrecognized sect ion and content) INTERVAL HISTORY AND PHYSICAL Patient Name: More Kingsley Jr. Admit Date: MR #: [id number] : 1965 The H&P has been reviewed and the patient has been examined. I concur with the findings of the H&P. There are no significant changes. It is appropriate to proceed with the planned procedure. Leanne Cherry DPM 11/18/2020 12:30 PM Progress Inpatient Follow-up 11/17/2020 Braeden Conte, ELIE [facility] Patient: More Kingsley Jr. Date of : [...] 33.21 kg/m Laboratory and Additional Data Reviewed: Reviewed:[id number]} [facility] Medicine Inpatient H&P 11/05/2020 Flako Pinedo MD [facility] Patient: More Kingsley Date of : 1965 (54 y.o.) PCP: Cheng Staples, 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 Assessment More Kingsley is a 54 y.o. [...] EST Consult Notes (unrecognized section and content) Telecommunication Lines Repairer went with Dr. Kumar, case filler, to patient's room . Dr. Kumar removed remainder of black foam from tunnel at 11 oclock. Telecommunication Lines Repairer requested and received order change to white foam over bone and in tunnel areas, then black foam and negative pressure increased to 150mm/hg. Wound dressed per orders with 3 pieces total white foam, two pieces black foam to top. Negative pressure maintained and patient tolerated well. Patient dressing was attached to home vac at this time. Paperwork signed for vac by patient. Telecommunication Lines Repairer educated patient on charging, what to bring to future wound care appointments for dressing changes and all questions answered. Telecommunication Lines Repairer in to see patient for wound vac dressing change. Telecommunication Lines Repairer removed intact vac dressing as described to handbook writer by Dr. Cherry. Telecommunication Lines Repairer removed one piece black foam from top of dressing. Telecommunication Lines Repairer removed one piece black foam packed from 9 oclock area over to undermining in 2-4 oclock area. Telecommunication Lines Repairer removed one piece black foam from 7 oclock area. There remains one piece black foam in 11 oclock area (toward medial ankle) that is adhered to tunneling and exposed bone and could not be removed intact. Telecommunication Lines Repairer placed ns moist gauze dressing temporarily until discusses with podiatry. IV team consulted for PICC placement. Chart and history reviewed. PICC insertion explained to patient , agreed to procedure. Single lumen PICC inserted following [place] Protocol into cephalic vein. PICC trimmed at [...] home vac has been approved thru [facility] when the time comes for discharge home [...] deficit. 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 The patient's education level is a heat curer, awareness of own capacity and performance is a heat curer to return to prior level of function. [...] foot unclear and OT to clarify with case filler post evaluation this date. Home Living Type of Home: House Home Layout: One level, Stairs to enter with rails Bathroom Shower/Tub: Tub/shower unit Bathroom Toilet: Standard(Low toilet per pt.) Home Equipment: (Crutches) Additional Comments: Pt prefers to be called Carlitos . Prior Level of Function Level of Tully: Independent with ADLs and functional transfers Lives [...] HR) Prior Level of Function Level of Tully: Independent with ADLs and functional transfers Lives [...] completion of Physical Therapy Plan of Care. Telecommunication Lines Repairer in to see patient for wound vac [...] patient in patient's room. Patient educated to director social welfare role. Patient reports that he resides at [...] Patient Name: More Kingsley Jr. MR #: [id number] : 1965 Physicians: Cheng Staples CNP (Family); [...] file Gets together: Not on file Attends yazdanism service: Not on file Active member of [...] 15-20 maintain Follow-up labs, including cultures Follow-up case filler Patient needs incision and drainage of left foot abscess Consider MRI of the left foot Dressing according to case filler recommendation Endocrinology evaluation for adequate blood sugar [...] contextual derivation. Associated Order(s): IP CONSULT TO ORTHOTIC/PROSTHETIC PRACTITIONER Met with pt for diabetes education. Pt [...] feel like he is going to vomit. 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 He mentions often going to [employer] & ordering a double cheeseburger with a medium Turkish macias and medium diet soda. Occasional milk [...] Podiatry Inpatient Consult 11/06/2020 Braeden Conte, ELIE [facility] Patient: More Kingsley Date of : 1965 [...] the last 2 weeks. Patient is from [facility] where he was transferred down here to be evaluated and treated. Patient lost his right forefoot 3 years ago due to infection. 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 History of Present Illness: More Kingsley is a 54 y.o. male presenting from [facility] with complaint of left midfoot abscess and [...] More Kingsley Admit Date: 11/05/2020 MR #: [id number] : 1965 Current location: [facility] Physicians: Cheng Staples CNP (Family); Dr. Pinedo [...] (55 y.o.) Date of Service: 11/18/2020 CSN: [id number] Procedure(s): INCISION AND DRAINAGE FOOT/ANKLE with Application of Wound Vac Pre-Operative Diagnoses: * Abscess of left ankle Post-Operative Diagnoses: * Same as Pre-Op Diagnosis Surgeon(s) and Role: * Leanne Cherry DPM - Primary Anesthesiologist: Almas Gutierrez MD WASH BOX OPERATOR: Kathrine Page CRNA Anesthesiologist Terminal Operations Manager: SUNDEEP Machado Drying Frame Operator: Kathrine Rice RN; Paola German RN Scrub [...] Bed Characteristics DIEGO (Unable to assess) 11/17/201999 Edbi-wound Assessment DIEGO 11/17/20 0815 Treatments Not Applicable [...] Odor None 11/18/20 0800 Wound Bed Characteristics [place] 11/17/20 0815 Debi-wound Assessment Brown;Scaly 11/16/20 0506 [...] (55 y.o.) Date of Service: 11/11/2020 CSN: [id number] Procedure(s): DEBRIDEMENT AND DRESSING CHANGE APPLICATION WOUND VAC Pre-Operative Diagnoses: * Abscess, left foot Post-Operative Diagnoses: * Same as Pre-Op Diagnosis Surgeon(s) and Role: * Leanne Cherry DPM - Primary Anesthesiologist: Javi Barriga MD WASH BOX OPERATOR: Jasmine Gauthier CRNA Anesthesiologist Terminal Operations Manager: SUNDEEP Machado Drying Frame Operator: Kathrine Rice RN; Evie Hunt RN Scrub [...] Evie Rueda, TAMARAN, RN Clinical Documentation Improvement [facility] [phone] After business hours you may contact Arianna Hooks at [phone] (Weekdays until 10 PM and weekends 8 [...] Status: Active Member Role Status Dates Cheng Staplse Primary Care Provider Active Team Status: Inactive [...] Provider Act albaro Start: February 03, 2024 Sheet Metal Worker Relationship Specialty Start Date End Date Jonny Zhu MD [address] [place] [id number] PCP - General Family Medicine 01/06/24 Cheng Staples NP [address] [place] [phone] Nurse Practitioner Family Medicine 07/23/23 Cheng Staples NP [address] [place] [id number] Nurse Practitioner Family Medicine 01/06/24 Team Status: [...] June 12, 2024 End: June 12, 2024 Sheet Metal Worker Relationship Specialty Start Date End Date Cheng Staples APRN-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 PCP - General Nurse Practitioner 03/05/25 Sheet Metal Worker Relationship Specialty Start Date End Date Cheng Staples APRN-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 PCP - General Nurse Practitioner 03/05/25 Sheet Metal Worker Relationship Specialty Start Date End Date Art Freeman DO [address] [place] [address], [place] [address] PCP - General Family Medicine 04/26/25 Sheet Metal Worker Relationship Specialty Start Date End Date Cheng Staples APRN-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 PCP - General Nurse Practitioner 03/05/25 Sheet Metal Worker Relationship Specialty Start Date End Date Art Freeman DO [address] [place] [address] PCP - General Family Medicine 04/26/25 Sheet Metal Worker Relationship Specialty Start Date End Date Art Freeman DO [address] [place] [address] PCP - General Family Medicine 04/26/25 Sheet Metal Worker Relationship Specialty Start Date End Date Art Freeman DO [address] [place] [address] PCP - General Family Medicine 04/26/25 Sheet Metal Worker Relationship Specialty Start Date End Date Art Freeman DO [address] [place] [address] PCP - General Family Medicine 04/26/25 Team Status: Inactive Member Role Status Dates Cheng Staples Primary Care Provider Active Sta rt: June 28, 2025 End: June 28, 2025 Cathy Ramirez NP-C Attending Provider Active Start: June 28, 2025 End: June 28, 2025 Team Status: Active Member Role Status Dates Cheng Staples Primary Care Provider Active Sta rt: June 28, 2025 Chan Quintanilla MD Attending Provider Active Start: June 28, 2025 Team Status: Inactive Member Role Status Dates Cheng Staples Primary Care Provider Active Sta rt: June 28, 2025 End: June 28, 2025 Chan Quintanilla MD Attending Provider Active Start: June 28, 2025 End: June 28, 2025 Sheet Metal Worker Relationship Specialty Start Date End Date Art Freeman DO [address] [place] [address] PCP - General Family Medicine 04/26/25 Sheet Metal Worker Relationship Specialty Start Date End Date Art Freeman DO [address] [place] [address] PCP - General Family Medicine 04/26/25 Team Status: Active Member Role Status Dates NON STAFF Primary Care Provider Active Team Status: Inactive Member Role Status Dates Chan Quintanilla MD Attending Provider Active Start: July 09, 2025 End: July 09, 2025 NON STAFF Primary Care Provider Active Start: July 09, 2025 End: July 09, 2025 Sheet Metal Worker Relationship Specialty Start Date End Date Art Freeman DO [address] [facility] [address] [place] [address] PCP - General Family Medicine 04/26/25 Sheet Metal Worker Relationship Specialty Start Date End Date Art Freeman DO [address] [facility] [address] [place] [address] PCP - General Family Medicine 04/26/25 Sheet Metal Worker Relationship Specialty Start Date End Date Art Freeman DO [address] [facility] [address] [facility] [address] PCP - General Family Medicine 04/26/25 Sheet Metal Worker Relationship Specialty Start Date End Date Art Freeman DO [address] [place] [address] PCP - General Family Medicine 04/26/25 Sheet Metal Worker Relationship Specialty Start Date End Date Art Freeman DO [address] [facility] [address] [place] [address] PCP - General Family Medicine 04/26/25 Team Status: Inactive Member Role Status Dates ALISHA Nguyen Primary Care Provider Active Start: June 28, 2025 End: June 28, 2025 ALISHA Pardo Attending Provider Active Start: June 28, 2025 End: June 28, 2025 Team Status: Inactive Member Role Status Dates ALISHA Nguyen Primary Care Provider Active Start: June 28, 2025 End: June 28, 2025 Chan Quintanilla MD Attending Provider Active Start: June 28, 2025 End: June 28, 2025 Team Status: Active Member Role Status Dates Chan Quintanilla MD Attending Provider Active Start: July 16, 2025 Chan Quintanilla MD Other Provider Active Start: July 16, 2025 NON STAFF Primary Care Provider Active Start: July 16, 2025 Team Status: Inactive Member Role Status Dates ALISHA Pardo Attending Provider Active Start: August 22, 2025 End: August 22, 2025 NON STAFF Primary Care Provider Active Start: August 22, 2025 End: August 22, 2025 Sheet Metal Worker Relationship Specialty Start Date End Date Art Freeman DO [address] [facility] [address] [place] [address] PCP - General Family Medicine 04/26/25 Goals [...] alcohol or drug abuse patient.[facility] the event this information is protected by the Federal Confidentiality of Alcohol and Drug Abuse Patient Records regulations: The Federal rules restrict any use of the information to criminally investigate or prosecute any alcohol or drug abuse patient.[facility] General[facility] the event this information is protected by the Federal Confidentiality of Alcohol and Drug Abuse Patient Records regulations: The Federal rules restrict any use of the information to criminally investigate or prosecute any alcohol or drug abuse patient.[facility] General[facility] the event this information is protected by the Federal Confidentiality of Alcohol and Drug Abuse Patient Records regulations: The Federal rules restrict any use of the information to criminally investigate or prosecute any alcohol or drug abuse patient.[facility] General[facility] the event this information is protected by the Federal Confidentiality of Alcohol and Drug Abuse Patient Records regulations: The Federal rules restrict any use of the information to criminally investigate or prosecute any alcohol or drug abuse patient.[facility] General[facility] the event this information is protected by the Federal Confidentiality of Alcohol and Drug Abuse Patient Records regulations: The Federal rules restrict any use of the information to criminally investigate or prosecute any alcohol or drug abuse patient.[facility] General[facility] the event this information is protected by the Federal Confidentiality of Alcohol and Drug Abuse Patient Records regulations: The Federal rules restrict any use of the information to criminally investigate or prosecute any alcohol or drug abuse patient.[facility] FOR RECORDS PERTAINING TO PATIENTS WHO ARE [...] BE BASED ON THE PRIMARY CLINICAL RECORDS. [facility] [employer] [facility]. provides no warranty or guarantee of the accuracy or completeness of information in this document.
== END 2025-09-05 10:52 | disposition home or self-care (01) ==
LOC: WC 10:51
PROVIDERS: PCP Family Medicine; Visit Provider Podiatrist Foot & Ankle Surgery
DX: E11.621 Type 2 diabetes mellitus with foot ulcer (principal); L97.415 Non-pressure chronic ulcer of right heel and midfoot with muscle involvement without evidence of necrosis
CPT/HCPCS: 29445; A6199; A6213

== ENCOUNTER 2025-09-10 13:22 | Outpatient (OUT) | payer MEDICARE, SELFPAY ==
--- OUTSIDE RECORDS SUMMARY | 2025-09-10 13:28 | XMS_ITS | CCD ---
Author Organization [facility] Care Team Providers Care Registered Dietician Name Role Phone JAVI FIGUEROA Admitting Unavailable JAVI FIGUEROA Attending Unavailable JAVI FIGUEROA Referring Unavailable SELF, REFERRED Primary Care Unavailable PHU UBCK Attending Unavailable CHENG STAPLES Primary Care Unavailable Cheng Staples Primary Care Provider [phone] SYSTEM, PROVIDER NOT IN Referring Unavaila FLAKO [...] Unavailable Iva Black Unavailable MapusSebastián Unavailable Bel RN EMERGENCY ROOM, Cheng Unavailable Jonny Zhu MD Primary Care Provider Bel RN EMERGENCY ROOM, Cheng Unavailable Cheng Staples Primary Care Provider Cheng Staples Attending Provider Cheng Staples Primary Care Provider MD Karrie Imnew Attending Provider [phone] CHENG STAPLES Attending Unavailable CHENG STAPLES Attending Unavailable CHENG STAPLES Attending Unavailable Cheng Staples Primary Care Provider MD Tracy Yoon Attending Provider Unavailable Primary Care Provider Unavailke Staples CORE MACHINE TENDER-Cheng LINDSEY Primary Care Provider ART FIGUEREDO Referring Unavailable Art Freeman DO Primary Care Provider ART FIGUEREDO Attending Unavailable ASAAD, IMAD Referring Unavailable JEROME DEL TORO Attending Unavailable ASAAD, IMAD Referring Unavailable COURTNEY GLOVER Attending Unavailable FIGUEREDO, ART S Referring Unavailable DAVIDA PRICE Attending Unavailable ASAAD, IMAD Referring Unavailable AichholCheng kramer Primary Care Provider Ashley EPSTEIN-Cathy Wynn Attending Provider Chan Quintanilla [...] Unavailable Aichholz Cheng BRITO Primary Care Provider [phone] Cathy Hathaway Attending Provider [phone] Chan Quintanilla MD Other Provider [phone] Chan Quintanilla Attending UnavailChan Ramos Admitting Unavailabl [...] Propensity to adverse reactions (disorder) [address] [facility] Repository (1 source) bee venom Drug allergy (disorder) [facility] Repository (1 source) Honey bee venom Propensity to adverse reactions 0 Swelling [facility] (1 source) Bee pollen Allergy to substance 0 Unknown Reaction [facility] (20 sources) bee venom protein (honey bee); Translations: [BEE VENOM PROTEIN (HONEY BEE)] Allergy to substance 0 Other (See Comments) [facility] (8 sources) Venom-Honey Bee; Translations: [VENOM-HONEY BEE] Drug Allergy 0 Anaphylaxis, Other: See Comments, Swelling [facility] Medications Current Medications Medication Drug Class(es) Dates [...] of right foot with fat layer exposed ([facility]) Take 1 tablet by mouth in [...] ulcer, with long-term current use of insulin ([facility]) Use as instructed 1 each 05/16/2025 Active [...] of right foot with fat layer exposed ([facility]) Apply 1 Application topically in the morning. [...] ulcer, with long-term current use of insulin ([facility]) 38 units in the morning and 40 [...] ulcer, with long-term current use of insulin ([facility]) Take 1 tablet (10 mg total) by [...] hyperlipidemia due to type 2 diabetes mellitus ([facility]) Take 1 tablet (500 mg total) by [...] complication, with long-term current use of insulin ([facility]) Inject 0.5 mg under the skin every [...] ulcer, with long-term current use of insulin ([facility]) Inject 36 Units under the skin in [...] ulcer, with long-term current use of insulin ([facility]) Inject 30 Units under the skin in the morning and 30 Units before bedtime. 18 mL 1 05/10/2025 08/10/2025 Discontinued (Reorder) Start: 04-26-2025 End: 05-10-2025 inject 0.3 mL by subcutaneous injection once daily insulin glargine (LANTUS) 100 unit/mL injection Indications: Type 2 diabetes mellitus with foot ulcer, with long-term current use of insulin ([facility]) Inject 0.3 mL (30 Units [...] ulcer, with long-term current use of insulin ([facility]) 70-150 0 units 151-174 2 units 175-199 [...] ulcer, with long-term current use of insulin ([facility]) Sliding scale with pre meal blood sugars [...] 01-06-2024 01-06-2024 Episodic Other aftercare (1 source) 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; Translations: [HALF-WAY USE ORAL HYPOGLYCEMIC DX] Onset: 03-22-2023 Episodic Other aftercare (1 source) Encounter for therapeutic drug level monitoring; Translations: [ENC THERAPEUTC DRUG LEVL MONITORING] Onset: 03-22-2023 Episodic Other aftercare (1 source) Other intermediate (current) drug therapy; Translations: [OTH HALF-WAY CURRENT DRUG THERAPY] Onset: 03-22-2023 Episodic Other aftercare (7 sources) Long-term current use of insulin; Translations: [jail (current) use of insulin] 06-28-2025 Episodic Other [...] 09-07-2016 10-27-2023 Episodic Other aftercare (4 sources) jail (current) use of insulin; Translations: [HALF-WAY CURRENT USE OF INSULIN] Onset: 03-21-2021 Episodic [...] CT angio neckon 08-22-2025 CT angio neck [facility] [place] [address] CT Scan Report Signed Patient: More Kingsley MR#: [id number] 125 : 1965 Acct:[id number] Age/Sex: 59 / M ADM Date: 08/22/25 Loc: CT Room: Type: [facility] Attending Dr: Cathy Leggett RN EMERGENCY ROOM-C Copies to: Cathy Leggett APRN Ordering Provider: Cathy Leggett APRN Date of Service: 08/22/25 CT/CT angio head: I65.23 - Occlusion and stenosis of bilateral carotid ney... ([id number]) CT/CT angio neck: I65.23 - Occlusion and [...] Kidd M.D. 08/22/2025 5:14 PM Dictation Location: [place] [address] Transcribed By: [facility] 08/22/251713 Dictated By: Blair Kidd II, MD 08/22/251703 Signed By: 08/22/251713 Normal [facility] ISTAT XRay CREon 08-22-2025 ISTAT GFR >60.0 Normal [facility] Comment on above: Result Comment: PERF ORMED BY: [place] [address] PATHOLOGIST CASE MANAGERS CHE TAVARES M.D. Performed By: #### I SCRE #### [address] No Panel InformationOrdered By: Cathy Leggett on 08-22-2025 Bedside Estimated GFR (eGFR) > 60.0 [facility] Whole blood creatinine measu rementOrdered By: Cathy Leggett on 08-22-2025 Creatinine [Mass/Vol] 1.3 mg/dL Normal 0.6-1.3 [facility] Comment on above: ER/ESD physician is notified/shown all ISTAT results.Critical values may be confirmed by laboratory testing ifdeemed necessary by ER attending doctor. Result Comment: ER/E SD physician is notified/shown all ISTAT results. Critical values may be confirmed by laboratory testing if deemed necessary by ER attending doctor. Performed By: #### I SCRE #### [facility] [address] LIPID PROFILEon 07-16-2025 Cholesterol [Mass/Vol] 198 mg/dL Normal 150-200 [facility] Comment on above: Performed By: #### C BCA, CMP #### [facility] ([id number]) [address] [place] [address] Cholesterol in HDL [Mass/Vol] 34 mg/dL Low >39 [facility] Comment on above: Result Comment: HDL <40 mg/dL - High Risk HDL > or = 40mg/dL- Desirable HDL >60 mg/dL - Negative Risk Performed By: #### C BCA, CMP #### [facility] ([id number]) [address] [place] [address] Cholesterol in LDL [Mass/Vol] 128 mg/dL Normal <130 [facility] Comment on above: Result Comment: LDL <100 mg/dL - Desirable LDL >160 mg/dL - High Risk Performed By: #### C BCA, CMP #### [facility] ([id number]) [address] [place] [address] CHOLESTEROL:HDL 5.8 High 1.0-5.0 [facility] Comment on above: Performed By: #### C BCA, CMP #### [facility] ([id number]) [address] [place] [address] Triglyceride [Mass/Vol] 179 mg/dL High 27-150 [facility] Comment on above: Performed By: #### C BCA, CMP #### [facility] ([id number]) [address] [place] [address] VERY LOW LIPOPROTEIN 36 mg/dL High 0-30 [facility] Comment on above: Performed By: #### C BCA, CMP #### [facility] ([id number]) [address] [place] [address] Creatinineon 07-09-2025 Creatinine Clr Calc Pharmacy 72.67 Normal [facility] Comment on above: Result Comment: PERF ORMED BY: [place] [address] PATHOLOGIST CASE MANAGERS CHE TAVARES M.D. Performed By: #### B UN, CREAT #### [address] GFR/1.73 sq M.predicted MDRD (S/P/Bld) [Vol rate/Area] 57.276 mL/min/{1.73_m2} Normal [facility] Comment on above: Performed By: #### B UN, CREAT #### [address] Creatinine [Mass/volume] in Serum or PlasmaOrdered By: Chan Quintanilla on 07-09-2025 Creatinine [Mass/Vol] 1.42 mg/dL High 0.70-1.30 [facility] Comment on above: Performed By: #### B UN, CREAT #### [address] No Panel InformationOrdered By: Chan Quintanilla on 07-09-2025 Estimated GFR (CKD-EPI) 57.276 mL/Min [facility] Creatinine Clearance (Chem 72.67 [facility] Urea nitrogen [Mass/volume] in Serum or PlasmaOrdered By: Chan Quintanilla on 07-09-2025 Urea nitrogen [Mass/Vol] 26 mg/dL High 06-15 [facility] Comment on above: Performed By: #### B UN, CREAT #### [facility] [address] US UNI ankle/arm indiceson 0 07-04-2025 US UNI ankle/arm indices [facility] [address] [place] [address] Ultrasound Report Signed Patient: More Kingsley MR#: [id number] 125 : 1965 Acct:[id number] Age/Sex: 59 / M ADM Date: 06/28/25 Loc: [facility] Room: Type: [facility] Attending Dr: Chan Quintanilla MD Ordering Provider: [...] [id number] Signed By: 07/04/25 1341 Normal [facility] XR FOOT RT MIN 3 VWS WEIGHT BEARINGon 06-12-2025 XR FOOT RT MIN 3 VWS WEIGHT BEARING XR FOOT RT MIN 3 VWS WEIGHT BEARING XR FOOT RT MIN 3 VWS WEIGHT BEARING HISTORY: Right foot ulcer, with unspecified severity ([facility]). COMPARISON: 03/04/2025 IMPRESSION: Unchanged indication about the metatarsals. Progressive sclerosis and irregularity of the plantar aspect remnant tarsal/metatarsal are nonspecific, infection is possible. Correlate for associated soft tissue injury, consider MR, as appropriate. Plantar and Achilles calcaneal enthesophytes. Vascular calcifications. Finalized by Thomas Schrader MD on 06/12/2025 2:05 PM Normal [facility] GENERIC ORDER #1on 06-2 TEST RESULT SEE NOTE Abnormal [facility] Comment on above: Result Comment: Test name Result Flag Units RefIntvl Testosterone, Total by Water Quality Specialist 234.3 L ng/dL 300.0-890.0 This test was developed and its performance characteristics determined by [facility]. It has not been cleared or approved [...] Children, or Individuals on Testosterone-Suppressing Hormone Therapy) ([employer] test code 9945936). For individuals on testosterone hormone therapy, refer to cisgender male reference intervals. No reference intervals have been established for males younger than 18 years or for cisgender females. For a complete set of all established reference intervals, refer to [employer]td[employer]/Tests/Pub/[id number]. This test was developed and its performance characteristics determined by [facility]. It has not been cleared or approved by the [place] Food and Drug Administration. This test was performed in a CLIA certified laboratory and is intended for clinical purposes. Performed By: [facility] [address] [place] [address] Cadd Operator: Warren Simmons MD, PhD CLIA Number: [id number] Performed By: #### C MELANIA, CMP #### [facility] ([id number]) [address] [place] [address] MAGNESIUMon 05-16-2025 Magnesium [Mass/Vol] 2.0 mg/dL Normal 1.8-2.6 [facility] Comment on above: Performed By: #### C MELANIA, CMP #### [facility] ([id number]) [address] [place] [address] PROSTATIC SPECIFIC ANTIGEN S CREENon 05-16-2025 PROSTATIC SPEC ANT 0.86 ng/mL Normal 0.00-4.00 [facility] Comment on above: Result Comment: The method used for this test is Secure-24 DXI chemiluminescent immunoassay. Values obtained by different assay methods cannot be used interchangeably. Performed By: #### C MELANIA, CMP #### [facility] ([id number]) [address] [place] [address] TESTOSTERONE, TOTAL AND FREE , Son 05-16-2025 TESTOSTERONE, TOTAL AND FREE, S TESTF TESTOSTERONE, TOTAL AND FREE, S Cancelled Normal [facility] VITAMIN B12on 05-16-2025 Cobalamin (Vitamin B12) [Mass/Vol] 1009 pg/mL High 180-914 [facility] Comment on above: Performed By: #### C MELANIA, CMP #### [facility] ([id number]) [address] [place] [address] VITAMIN D 25 HYDROXYon 05-16 VITAMIN D 25 HYD TOT 84.2 ng/mL Normal 30.0-100.0 [facility] Comment on above: Order Comment: Vitam in D status 25 [place] Vitamin D Deficiency <20 ng/mLInsufficiency 20-29 ng/mLSufficiency 30-100 ng/mLToxicity >100 ng/mLNOTE: A pediatric reference range has not been established by the drying can worker of this kit. The [place] [employer] recommends a Vitamin D level of = or >20ng/mL in infants and children. Performed By: #### C MELANIA, CMP #### [facility] ([id number]) [address] [facility] [place] [address] XR SPINE LUMB COMP INCL BEND 6+ [...] Feliz MD on 05/04/2025 3:25 PM Normal [facility] CBC WITH AUTO DIFFERENTIALon 05-02-2025 BASOPHILS ABSOLUTE COUNT (10*3/UL) BY AUTOMATED COUNT 0.1 10*3/uL Normal 0.0-0.2 [facility] Comment on above: Performed By: #### C MELANIA #### [facility] ([facility]) [address] [place] [address] VIR BASOPHILS RELATIVE PERCENT BY AUTOMATED COUNT 1.3 % Normal [facility] Comment on above: Performed By: #### C MELANIA #### [facility] ([facility]) [address] [place] [address] VIR CELLAVISION DIFFERENTIAL TYPE AUTOMATED DIFFERENTIAL Normal [facility] Comment on above: Performed By: #### C BCA #### [facility] ([facility]) [address] [place] [address] VIR Eosinophils (Bld) [#/Vol] 0.2 10*3/uL Normal 0.0-0.4 [facility] Comment on above: Performed By: #### C BCA #### [facility] ([facility]) [address] [place] [address] VIR EOSINOPHILS RELATIVE PERCENT BY AUTOMATED COUNT 2.5 % Normal [facility] Comment on above: Performed By: #### C BCA #### [facility] ([facility]) [address] [place] [address] VIR Erythrocyte distribution width (RBC) [Ratio] 15.2 % High 11.5-15 [facility] Comment on above: Performed By: #### C BCA #### [facility] ([facility]) [address] [place] [address] VIR Hematocrit (Bld) [Volume fraction] 42.3 % Normal 39-50 [facility] Comment on above: Performed By: #### C BCA #### [facility] ([facility]) [address] [place] [address] VIR Hemoglobin (Bld) [Mass/Vol] 14.1 g/dL Normal 13-17 [facility] Comment on above: Performed By: #### C BCA #### [facility] ([facility]) [address] [place] [address] VIR LYMPHOCYTES ABSOLUTE COUNT (10*3/UL) BY AUTOMATED COUNT 1.9 10*3/uL Normal 1.0-3.5 [facility] Comment on above: Performed By: #### C BCA #### [facility] ([facility]) [address] [place] [address] VIR LYMPHOCYTES RELATIVE PERCENT BY AUTOMATED COUNT 22.1 % Normal [facility] Comment on above: Performed By: #### C BCA #### [facility] ([facility]) [address] [place] [address] VIR MCH (RBC) [Entitic mass] 27.5 pg Normal 27-34 [facility] Comment on above: Performed By: #### C BCA #### [facility] ([facility]) [address] [place] [address] VIR MCHC (RBC) [Mass/Vol] 33.4 g/dL Normal 32-36 [facility] Comment on above: Performed By: #### C BCA #### [facility] ([facility]) [address] [place] [address] VIR MCV (RBC) [Entitic vol] 82 fL Normal 80-100 [facility] Comment on above: Performed By: #### C BCA #### [facility] ([facility]) [address] [place] [address] VIR MONOCYTES ABSOLUTE COUNT (10*3/UL) BY AUTOMATED COUNT 0.9 10*3/uL Normal 0.0-0.9 [facility] Comment on above: Performed By: #### C BCA #### [facility] ([facility]) [address] [place] [address] VIR MONOCYTES RELATIVE PERCENT BY AUTOMATED COUNT 10.6 % Normal [facility] Comment on above: Performed By: #### C BCA #### [facility] ([facility]) [address] [place] [address] VIR NEUTROPHILS ABSOLUTE COUNT BY AUTOMATED COUNT 5.5 10*3/uL Normal 1.5-6.6 [facility] Comment on above: Performed By: #### C BCA #### [facility] ([facility]) [address] [place] [address] VIR NEUTROPHILS RELATIVE PERCENT BY AUTOMATED COUNT 63.5 % Normal [facility] Comment on above: Performed By: #### C BCA #### [facility] ([facility]) [address] [place] [address] VIR Platelet mean volume (Bld) [Entitic vol] 9.5 fL Normal 7-12 [facility] Comment on above: Performed By: #### C BCA #### [facility] ([facility]) [address] [place] [address] VIR Platelets (Bld) [#/Vol] 298 10*3/uL Normal 150-450 [facility] Comment on above: Performed By: #### C BCA #### [facility] ([facility]) [address] [place] [address] VIR RBC COUNT 5.14 X10E12/L Normal 4.1-5.7 [facility] Comment on above: Performed By: #### C BCA #### [facility] ([facility]) [address] [place] [address] VIR WBC (Bld) [#/Vol] 8.7 10*3/uL Normal 4-11 [facility] Comment on above: Performed By: #### C BCA #### [facility] ([facility]) [address] [place] [address] VIR COMPREHENSIVE METABOLIC PANE Anuel 05-02-2025 Albumin [Mass/Vol] 3.7 g/dL Normal 3.2-5.3 [facility] Comment on above: Performed By: #### C MP #### [facility] ([facility]) [address] [place] [address] VIR ALP [Catalytic activity/Vol] 102 U/L Normal 39-130 [facility] Comment on above: Performed By: #### C MP #### [facility] ([facility]) [address] [place] [address] VIR ALT [Catalytic activity/Vol] 14 U/L Normal <=40 [facility] Comment on above: Performed By: #### C MP #### [facility] ([facility]) [address] [place] [address] VIR Anion gap [Moles/Vol] 10 mmol/L Normal 5-15 [facility] Comment on above: Performed By: #### C MP #### [facility] ([facility]) [address] [place] [address] VIR AST [Catalytic activity/Vol] 18 U/L Normal <=41 [facility] Comment on above: Performed By: #### C MP #### [facility] ([facility]) [address] [place] [address] VIR Bilirubin [Mass/Vol] 0.9 mg/dL Normal 0.3-1.2 [facility] Comment on above: Performed By: #### C MP #### [facility] ([facility]) [address] [place] [address] VIR Calcium [Mass/Vol] 9.6 mg/dL Normal 8.5-10.5 [facility] Comment on above: Performed By: #### C MP #### [facility] ([facility]) [address] [place] [address] VIR Chloride [Moles/Vol] 100 mmol/L Normal 98-109 [facility] Comment on above: Performed By: #### C MP #### [facility] ([facility]) [address] [place] [address] VIR CO2 [Moles/Vol] 22 mmol/L Normal 22-32 [facility] Comment on above: Performed By: #### C MP #### [facility] ([facility]) [address] [place] [address] VIR Creatinine [Mass/Vol] 1.61 mg/dL High 0.60-1.30 [facility] Comment on above: Result Comment: METH OD TRACEABLE TO IDMS STANDARD Performed By: #### C MP #### [facility] ([facility]) [address] [place] [address] VIR GFR/1.73 sq M.predicted among non-blacks MDRD (S/P/Bld) [Vol rate/Area] 49 mL/min/{1.73_m2} Low >=60 [facility] Comment on above: Result Comment: Repo rted eGFR is based on the CKD-EPI 2020 equation that does not use a race coefficient. Performed By: #### C MP #### [facility] ([facility]) [address] [place] [address] VIR Glucose [Mass/Vol] 323 mg/dL High 65-99 [facility] Comment on above: Performed By: #### C MP #### [facility] ([facility]) [address] [place] [address] VIR Potassium [Moles/Vol] 4.1 mmol/L Normal 3.5-5.0 [facility] Comment on above: Performed By: #### C MP #### [facility] ([facility]) [address] [place] [address] VIR Protein [Mass/Vol] 8.9 g/dL High 6.0-8.0 [facility] Comment on above: Performed By: #### C MP #### [facility] ([facility]) [address] [place] [address] VIR Sodium [Moles/Vol] 132 mmol/L Low 134-146 [facility] Comment on above: Performed By: #### C MP #### [facility] ([facility]) [address] [place] [address] VIR Urea nitrogen [Mass/Vol] 28 mg/dL High 5-23 [facility] Comment on above: Performed By: #### C MP #### [facility] ([facility]) [address] [place] [address] VIR HEMOGLOBIN A1Con 05-02-2025 Glucose [Mass/Vol] 283 mg/dL Normal [facility] Comment on above: Performed By: #### H A1C #### [facility] ([facility]) [address] [place] [address] VIR HbA1c (Bld) [Mass fraction] 11.5 % High 4.4-5.6 [facility] Comment on above: Result Comment: ADA Guidelines Result HgbA1c Normal : less than 5.7 % Prediabetes : 5.7 % to 6.4 % Diabetes : > 6.4 % Use with caution in patients with abnormal hemoglobin variants as the half-life of red blood cells and in vivo glycation rates are affected. Performed By: #### H A1C #### [facility] ([facility]) [address] [place] [address] VIR Debridementon 04-24-2025 SCOTT Vaughn 04/24/2025 12:02 PM Debridement Performed by: SCOTT Vaughn Authorized by: SCOTT Vaughn Associated wounds: Wound 03/28/25 1 Diabetic Ulcer Foot Right;Plantar Consent: Consent obtained: Verbal and written Consent given by: Patient Risks discussed: Yes Debridement Details: Performed by: RN EMERGENCY ROOM Type: Sharp Level: Subcutaneous Tissue, Devitalized tissue and other material debrided: Subcutaneous tissue, fibrin, biofilm and callus Anesthesia administration: topical Anesthesia: EMLA Total Surface Area Debrided cm^2: 7.26 Specimen Taken: None Instrument: Curette Amount of bleeding: Small Bleeding Control: Pressure Response to treatment: Procedure was tolerated well Tissue Applied?: No MANUALLY TRANSCRIBED RESULTS [facility] No Panel Informationon 04-24 APPLIED IN CLINIC TODAY. MANUALLY TRANSCRIBED RESULTS No Panel InformationOrdered By: Sulma Humphreys on 04-24-2025 [facility] NURSING PROGon 04-20-2025 NURSING PROG HNO ID: [id number] Author: ROBBIN CONTI RN Service: ? Author [...] thing I was told. No instructions given. [facility] CNPLidia 04-18-2025 CNPN Telephone (GENSSP) MORE KINGSLEY JR. ([id number]) 1965 M Date Time Provider Department 04/18/25 [facility] today, we recorded the following information about you: Tamara Goncalves RN 04/19/2025 8:06 AM Addendum G-JONY for date of service 04/25/2025. Appeal with all information including letter, study, JAMIN notes, GES result, EGG result, EGD result, CT result, faxed to [employer]/Appeals Dept at fax [phone] with confirmation. Appeal also mailed out to [employer]/Appeals Dept to the address provided. Copy placed in shared clinical office filing cabinet. Tamara Goncalves RN 05/03/2025 10:35 AM Addendum Email received from [place]/Pre-Access Denials Team: We are glad to inform you that your appeal was successfully overturned and CPT 78494 is now authorized and test needs to [...] Fully Assessed Reason for Visit: Care Coordination [1536] Cmt: Appeal for GPOEM denial Prescriptions as [...] Encounter Status:Closed by TAMARA GONCALVES on 04/18/25 [facility] 04-11-2025 [facility] Telephone (GENSSP) MORE KINGSLEY JR. ([id number]) 1965 M Date Time Provider Department 04/11/25 JEROME DEL TORO [facility] During your visit today, we recorded the following information about you: Jeremiah Stiles RN 04/11/2025 12:55 PM Signed PA for Gimoti initiated electronically through [employer] site with Anderson Code 2S6S26 [facility] at [phone] with fax# [phone]. Awaiting response [facility] [employer] ID# [id number] Rx Grp RXAETD Tiff Mejias LPN 04/11/2025 [...] Anderson Code 2S6S26 started by [facility] at [phone] with fax# [phone]. Awaiting response [facility] [employer] ID# [id number] Rx Grp RXAETD >> Tiff Mejias LPN 04/11/2025 3:19 PM >> TIFF MEJIAS WedApril 11, 2025 3:19 PM Med approved thru 11/21/25 Problem List As Of Date: 04/11/2025 (None) Encounter Status:Closed by JEREMIAH STILES on 04/11/25 [facility] 04-11-2025 SCOTT Vaughn 04/11/2025 12:18 PM Debridement Performed by: SCOTT Vaughn Authorized by: SCOTT Vaughn Associated wounds: Wound 03/28/25 1 Diabetic Ulcer Foot Right;Plantar Consent: Consent obtained: Verbal and written Consent given by: Patient Risks discussed: Yes Debridement Details: Performed by: RN EMERGENCY ROOM Type: Sharp Level: Subcutaneous Tissue, Devitalized tissue and other material debrided: Subcutaneous tissue, callus and fibrin Anesthesia administration: topical Anesthesia: EMLA Total Surface Area Debrided cm^2: 7.78 Specimen Taken: None Instrument: Curette Amount of bleeding: Medium Bleeding Control: Pressure Response to treatment: Procedure was tolerated well Tissue Applied?: No MANUALLY TRANSCRIBED RESULTS [facility] [employer] 4x4on 04-11-2025 Applied in clinic today MANUALLY TRANSCRIBED RESULTS [facility] [employer] ACETYLCHOLINE REC BINDING AB on 04-10-2025 ACETYLCHOLINE BINDING, QUAL Negative Normal Negative [facility] Comment on above: Order Comment: Speci men Type: BLOOD SPECIMEN Ordering Facility: [facility] Address: [address] [place] [address] Result Comment: Anti -acetylcholine receptor binding antibody test is used as an aid in diagnosis of myasthenia gravis. A negative result cannot exclude myasthenia gravis. Clinical correlation is required. Performed By: #### A CHRAB #### [facility] CLIA [id number] [address] [place] [address] [place] Acetylcholine receptor binding Ab (S) [Moles/Vol] <0.02 Normal <0.21 [facility] Comment on above: Order Comment: Gloriai men Type: BLOOD SPECIMEN Ordering Facility: [facility] Address: [address] [place] [address] Performed By: #### A CHRAB #### [facility] CLIA [id number] [address] [place] [address] [place] AMINO ACIDS, PLASMA W/ CONSU LTATIONon 04-10-2025 Alanine [Moles/Vol] 412 umol/L Normal 177-583 [facility] Comment on above: Order Comment: Speci men Type: BLOOD SPECIMEN Ordering Facility: [facility] Address: [address] [place] [address] Performed By: #### P AABI #### [facility] CLIA [id number] [address] [place] [address] [place] Alloisoleucine [Moles/Vol] <2 Normal 0-2 [facility] Comment on above: Order Comment: Speci men Type: BLOOD SPECIMEN Ordering Facility: [facility] Address: [address] [place] [address] Performed By: #### P AABI #### [facility] CLIA [id number] [address] [place] [address] [place] Alpha aminoadipate [Moles/Vol] <2 Normal 0-6 [facility] Comment on above: Order Comment: Speci men Type: BLOOD SPECIMEN Ordering Facility: [facility] Address: [address] [place] [address] Performed By: #### P AABI #### [facility] CLIA [id number] [address] [place] [address] [place] AMINO ACID CONSULTATION, PLASMA Normal [facility] Comment on above: Order Comment: Speci men Type: BLOOD SPECIMEN Ordering Facility: [facility] Address: [address] [place] [address] Result Comment: This plasma amino acid analysis is mainly notable for low levels of serine and glycine. Low levels of plasma serine and glycine is potentially related to the patient's clinical history of diabetes. Reference intervals from Jovani Scott, Pat MG, Ocasio MANDEEP, and Anderson DK: Biochemical Genetics: A Laboratory Manual, Copyright 1989 by [employer] Reference intervals not established for some amino acids. This test was developed and its performance characteristics determined by the [facility] Department of Pathology and Laboratory Medicine. It has not been cleared or approved by the FDA. The [facility] Department of Pathology and Laboratory Medicine is regulated under CLIA as qualified to perform high-complexity testing. This test is used for clinical purposes. It should not be regarded as investigational or for research. Performed By: #### P AABI #### [facility] CLIA [id number] [address] [place] [address] [place] AMINO ACIDS REVIEW, PLASMA Reviewed by Forrest Gomez MD, Ph.D ([id number]) [facility] Comment on above: Order Comment: Speci men Type: BLOOD SPECIMEN Ordering Facility: [facility] Address: [address] [place] [address] Performed By: #### P AABI #### [facility] CLIA [id number] [address] [place] [address] [place] Arginine [Moles/Vol] 73 umol/L Normal 15-128 [facility] Comment on above: Order Comment: Speci men Type: BLOOD SPECIMEN Ordering Facility: [facility] Address: [address] [place] [address] Performed By: #### P AABI #### [facility] CLIA [id number] [address] [place] [address] [place] Asparagine [Moles/Vol] 31 umol/L Low 35-74 [facility] Comment on above: Order Comment: Speci men Type: BLOOD SPECIMEN Ordering Facility: [facility] Address: [address] [place] [address] Performed By: #### P AABI #### [facility] CLIA [id number] [address] [place] [address] [place] Aspartate [Moles/Vol] 3 umol/L Normal 1-25 [facility] Comment on above: Order Comment: Speci men Type: BLOOD SPECIMEN Ordering Facility: [facility] Address: [address] [place] [address] Performed By: #### P AABI #### [facility] CLIA [id number] [address] [place] [address] [place] Citrulline [Moles/Vol] 38 umol/L Normal 12-55 [facility] Comment on above: Order Comment: Speci men Type: BLOOD SPECIMEN Ordering Facility: [facility] Address: [address] [place] [address] Performed By: #### P AABI #### [facility] CLIA [id number] [address] [place] [address] [place] Cystine [Moles/Vol] 50 umol/L Normal 5-82 [facility] Comment on above: Order Comment: Speci men Type: BLOOD SPECIMEN Ordering Facility: [facility] Address: [address] [place] [address] Performed By: #### P AABI #### [facility] CLIA [id number] [address] [place] [address] [place] Glutamate [Moles/Vol] 82 umol/L Normal 10-131 [facility] Comment on above: Order Comment: Speci men Type: BLOOD SPECIMEN Ordering Facility: [facility] Address: [address] [place] [address] Performed By: #### P AABI #### [facility] CLIA [id number] [address] [place] [address] [place] Glutamine [Moles/Vol] 478 umol/L Normal 205-756 [facility] Comment on above: Order Comment: Speci men Type: BLOOD SPECIMEN Ordering Facility: [facility] Address: [address] [place] [address] Performed By: #### P AABI #### [facility] CLIA [id number] [address] [place], [place] [address] [place] Glycine [Moles/Vol] 125 umol/L Low 151-490 [facility] Comment on above: Order Comment: Speci men Type: BLOOD SPECIMEN Ordering Facility: [facility] Address: [address] [place] [address] Performed By: #### P AABI #### [facility] CLIA [id number] [address] [id number] [address] [place] Histidine [Moles/Vol] 53 umol/L Low 72-124 [facility] Comment on above: Order Comment: Speci men Type: BLOOD SPECIMEN Ordering Facility: [facility] Address: [address] [place] [address] Performed By: #### P AABI #### [facility] CLIA [id number] [address] [place] [address] [place] Hydroxylysine [Moles/Vol] <2 High <=0 [facility] Comment on above: Order Comment: Speci men Type: BLOOD SPECIMEN Ordering Facility: [facility] Address: [address] [place] [address] Performed By: #### P AABI #### [facility] CLIA [id number] [address] [place] [address] [place] Hydroxyproline [Moles/Vol] Normal [facility] Comment on above: Order Comment: Speci men Type: BLOOD SPECIMEN Ordering Facility: [facility] Address: [address] [place] [address] Result Comment: Unab le to assay. Analytical difficulty Performed By: #### P AABI #### [facility] CLIA [id number] [address] [place] [address] [place] Isoleucine [Moles/Vol] 62 umol/L Normal 30-108 [facility] Comment on above: Order Comment: Speci men Type: BLOOD SPECIMEN Ordering Facility: [facility] Address: [address] [place] [address] Performed By: #### P AABI #### [facility] CLIA [id number] [address] [place] [address] [place] Leucine [Moles/Vol] 109 umol/L Normal 72-201 [facility] Comment on above: Order Comment: Speci men Type: BLOOD SPECIMEN Ordering Facility: [facility] Address: [address] [place] [address] Performed By: #### P AABI #### [facility] CLIA [id number] [address] [place] [address] [place] Lysine [Moles/Vol] 143 umol/L Normal 116-[address] [facility] Comment on above: Order Comment: Speci men Type: BLOOD SPECIMEN Ordering Facility: [facility] Address: [address] [place] [address] Performed By: #### P AABI #### [facility] CLIA [id number] [address] [place] [address] [place] Methionine [Moles/Vol] 19 umol/L Normal 10-42 [facility] Comment on above: Order Comment: Speci men Type: BLOOD SPECIMEN Ordering Facility: [facility] Address: [address] [place] [address] Performed By: #### P AABI #### [facility] CLIA [id number] [address] [place] [address] [place] Ornithine [Moles/Vol] 43 umol/L Low 48-195 [facility] Comment on above: Order Comment: Speci men Type: BLOOD SPECIMEN Ordering Facility: [facility] Address: [address] [place] [address] Performed By: #### P AABI #### [facility] CLIA [id number] [address] [place] [address] [place] Phenylalanine [Moles/Vol] 63 umol/L Normal 35-85 [facility] Comment on above: Order Comment: Speci men Type: BLOOD SPECIMEN Ordering Facility: [facility] Address: [address] [place] [address] Performed By: #### P AABI #### [facility] CLIA [id number] [address] [place] [address] [place] Proline [Moles/Vol] 237 umol/L Normal 97-329 [facility] Comment on above: Order Comment: Speci men Type: BLOOD SPECIMEN Ordering Facility: [facility] Address: [address] [place] [address] Performed By: #### P AABI #### [facility] CLIA [id number] [address] [place] [address] [place] Sarcosine [Moles/Vol] <2 High <=0 [facility] Comment on above: Order Comment: Speci men Type: BLOOD SPECIMEN Ordering Facility: [facility] Address: [address] [place] [address] Performed By: #### P AABI #### [facility] CLIA [id number] [address] [place] [address] [place] Serine [Moles/Vol] 41 umol/L Low 58-[address] [facility] Comment on above: Order Comment: Speci men Type: BLOOD SPECIMEN Ordering Facility: [facility] Address: [address] [place] [address] Performed By: #### P AABI #### [facility] CLIA [id number] [address] [place] [address] [place] Taurine [Moles/Vol] 58 umol/L Normal 54-210 [facility] Comment on above: Order Comment: Speci men Type: BLOOD SPECIMEN Ordering Facility: [facility] Address: [address] [place] [address] Performed By: #### P AABI #### [facility] CLIA [id number] [address] [place] [address] [place] Threonine [Moles/Vol] 109 umol/L Normal 60-225 [facility] Comment on above: Order Comment: Speci men Type: BLOOD SPECIMEN Ordering Facility: [facility] Address: [address] [place] [address] Performed By: #### P AABI #### [facility] CLIA [id number] [address] [place], [place] [address] [place] Tyrosine [Moles/Vol] 68 umol/L Normal 34-112 [facility] Comment on above: Order Comment: Speci men Type: BLOOD SPECIMEN Ordering Facility: [facility] Address: [address] [place] [address] Performed By: #### P AABI #### [facility] CLIA [id number] [address] [place] [address] [place] Valine [Moles/Vol] 227 umol/L Normal 119-[address] [facility] Comment on above: Order Comment: Speci men Type: BLOOD SPECIMEN Ordering Facility: [facility] Address: [address] [place] [address] Performed By: #### P AABI #### [facility] CLIA [id number] [address] [place] [address] [place] CARNITINE FREE AND TOTAL, PL ASMAon 04-10-2025 C0 [Moles/Vol] 39.0 umol/L Normal 20.0-53.0 [facility] Comment on above: Order Comment: Speci men Type: BLOOD SPECIMEN Ordering Facility: [facility] Address: [address] [place] [address] Performed By: #### C ARNPL #### [facility] CLIA [id number] [address] [place] [address] [place] Carnitine [Moles/Vol] 49.3 umol/L Normal 26.4-66.0 [facility] Comment on above: Order Comment: Speci men Type: BLOOD SPECIMEN Ordering Facility: [facility] Address: [address] [place] [address] Performed By: #### C ARNPL #### [facility] CLIA [id number] [address] [place] [address] [place] Carnitine esters [Moles/Vol] 10.3 umol/L Normal 3.0-15.6 [facility] Comment on above: Order Comment: Speci men Type: BLOOD SPECIMEN Ordering Facility: [facility] Address: [address] [place] [address] Performed By: #### C ARNPL #### [facility] CLIA [id number] [address] [place] [address] [place] Carnitine esters/Carnitine.free (C0) [Molar ratio] 0.3 Normal 0.1-0.7 [facility] Comment on above: Order Comment: Irving carver Type: BLOOD SPECIMEN Ordering Facility: [facility] Address: [address] [place] [address] Result Comment: NOTE : The determination of [...] determined by the Pathology and Laboratory Medicine [place] at the [facility]. The U.S. Food and Drug Administration has not approved or cleared this test, however, FDA clearance or approval is not currently required for clinical use. Performed By: #### C ARNPL #### [facility] CLIA [id number] [address] [place] [address] [place] CK SerPl-cCncon 04-10-2025 CK [Catalytic activity/Vol] 41 U/L Low 51-298 [facility] Comment on above: Order Comment: Irving wen Type: BLOOD SPECIMEN Ordering Facility: [facility] Address: [address] [place], [place] [address] [address] Performed By: #### 1 988-5, 2157-6 #### [facility] CLIA [id number] [address] [place] [address] [place] CNOVon 04-10-2025 CNOV Office Visit (GENSSP ) MORE KINGSLEY JR. ([id number]) 1965 M Date Time Provider Department 04/10/25 [...] 10:33 AM Signed [facility] [place] Gastroparesis/Dysmotil ity Consultation SERVICE DATE: 04/10/2025 SERVICE TIME: 10:04 AM PRIMARY CARE PHYSICIAN: No primary care provider on file. Tracy Yoon [address] [address] My final recommendations will be communicated back [...] ____ NAME: More Kingsley Jr. CLINIC NO: [id number] DATE OF SERVICE: April 10, 2025 This [...] for surgical (more content not included)... Normal [facility] MORE KINGSLEY JR. 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 He denies any significant psychiatric history and [...] mattress qual (more content not included)... Normal [facility] Office Visit ([facility]ST[facility] ) MORE KINGSLEY JR. ([id number]) 1965 M Date Time Provider Department 04/10/25 [...] - Does the patient see a paint line supervisor for chronic pain?No - Is the patient [...] - Has the patient met with a instructor military science for diet recommendations with Gastroparesis? No - [...] = 0-60%). (more content not included)... Normal [facility] CNPNon 04-10-2025 CNPN Telephone (GENSSP) MORE KINGSLEY JR. ([id number]) 1965 M Date Time Provider Department 04/10/25 [...] Fully Assessed Reason for Visit: Care Coordination [9631] Cmt: Schedule procedure and follow up appt Primary Visit Diagnosis:Diabetic gastroparesis (HCC) [E11.43, K31.84] Order(s):EGD - THERAPEUTIC, EUS, OR TUBE INTERVENTIONS [GI2] Order #: [id number] FUTURE sucralfate (CARAFATE) 1 gram tabletTake 1 [...] by JEROME DEL TORO on 04/10/25 Normal [facility] CRP SerPl-mCncon 04-10-2025 CRP [Mass/Vol] 2.7 mg/dL High <0.9 [facility] Comment on above: Order Comment: Speci men Type: BLOOD SPECIMEN Ordering Facility: [facility] Address: [address] [place] [address] Performed By: #### 1 988-5, 2157-6 #### [facility] CLIA [id number] [address] [place] [address] [place] ESR Westergren method (Bld) [Velocity]on 04-10-2025 ESR (Bld) [Velocity] 66 mm/h High 0-15 [facility] Comment on above: Order Comment: Speci men Type: BLOOD SPECIMEN Ordering Facility: [facility] Address: [address] [place] [address] Performed By: #### L ACPYR #### [facility] CLIA [id number] [address] [place] [address] [place] [address] [place] GAD65 Ab Ser-aCncon 04-10-20 25 Glutamate decarboxylase 65 Ab Qn (S) <5.0 Normal <=5.0 [facility] Comment on above: Order Comment: Speci men Type: BLOOD SPECIMEN Ordering Facility: [facility] Address: [address] [place] [address] Result Comment: Anti -glutamic acid decarboxylase antibody [...] required. Performed By: #### L ACPYR #### [facility] CLIA [id number] [address] [place] [address] [place] Glutamate decarboxylase 65 A b Qn (S)on 04-10-2025 GLUTAMIC ACID DECARBOXYLAS AB QUALITATIVE Negative Normal Negative [facility] Comment on above: Order Comment: Irving carver Type: BLOOD SPECIMEN Ordering Facility: [facility] Address: [address] [place] [address] Performed By: #### L ACPYR #### [facility] CLIA [id number] [address] [place] [address] [place] HbA1c (Bld)on 04-10-2025 Average glucose Estimated from glycated hemoglobin (Bld) [Mass/Vol] 269 mg/dL Normal [facility] Comment on above: Order Comment: [facility] Type: BLOOD SPECIMEN Ordering Facility: [facility] Address: [address] [place] [address] Result Comment: eAG: (Estimated average glucose) is a calculated value from HgbA1c and is loan representative of the average blood glucose level in the last 2-3 month period. Performed By: #### 5 5454-3 #### [facility] CLIA [id number] [address] [place] [address] [place] HbA1c (Bld) [Mass fraction] 11.0 % High 4.3-5.6 [facility] Comment on above: Order Comment: [facility] Type: BLOOD SPECIMEN Ordering Facility: [facility] Address: [address] [place] [address] Result Comment: [place] Diabetes Association guidelines indicate that patients with HgbA1c in the range 5.7-6.4% are at increased risk for development of diabetes, and intervention by lifestyle modification may be beneficial. HgbA1c greater or equal to 6.5% is considered diagnostic of diabetes. Performed By: #### 5 5454-3 #### [facility] CLIA [id number] [address] [place] [address] [place] IgA SerPl-mCncon 04-10-2025 IgA [Mass/Vol] 608 mg/dL High 70-400 [facility] Comment on above: Order Comment: Specedith carver Type: BLOOD SPECIMEN Ordering Facility: [facility] Address: [address] [place] [address] Performed By: #### 2 465-3, 2458-8, 2472-9 #### [facility] CLIA [id number] [address] [place] [address] [place] IgG SerPl-mCncon 04-10-2025 IgG [Mass/Vol] 3158 mg/dL High 700-1600 [facility] Comment on above: Order Comment: [facility] Type: BLOOD SPECIMEN Ordering Facility: [facility] Address: [address] [place] [address] Performed By: #### L ACPYR #### [facility] CLIA [id number] [address] [place] [address] [place] IgM SerPl-mCncon 04-10-2025 IgM [Mass/Vol] 110 mg/dL Normal 40-230 [facility] Comment on above: Order Comment: Speci men Type: BLOOD SPECIMEN Ordering Facility: [facility] Address: [address] [place] [address] Performed By: #### L ACPYR #### [facility] CLIA [id number] [address] [place] [address] [place] LDH SerPl-cCncon 04-10-2025 LDH [Catalytic activity/Vol] 159 U/L Normal 135-225 [facility] Comment on above: Order Comment: Speci men Type: BLOOD SPECIMEN Ordering Facility: [facility] Address: [address] [place] [address] Performed By: #### L ACPYR #### [facility] CLIA [id number] [address] [place] [address] [place] ORGANIC ACIDS UR, QUANT W/CO NSULTon 04-10-2025 2-Hydroxyglutarate/Cr eatinine (U) [Molar ratio] <0.4 Low 0.6-17.7 [facility] Comment on above: Order Comment: Speci men Type: URINE SPECIMEN Ordering Facility: [facility] Address: [address] [place] [address] Performed By: #### L [id number] #### [facility] CLIA [id number] [address] [place] [address] [place] 2-Hydroxyisovalerate/ Creatinine (U) [Molar ratio] 0.1 umol/mmolCr Normal 0.0-0.1 [facility] Comment on above: Order Comment: Speci men Type: URINE SPECIMEN Ordering Facility: [facility] Address: [address] [place] [address] Performed By: #### L [id number] #### [facility] CLIA [id number] [address] [place] [address] [place] 7-Xncxjg-7-hydroxybut yrate (C5-OH)/Creatinine (U) [Molar ratio] <0.6 Normal 0.0-1.3 [facility] Comment on above: Order Comment: Speci men Type: URINE SPECIMEN Ordering Facility: [facility] Address: [address] [place] [address] Performed By: #### L [id number] #### [facility] CLIA [id number] [address] [place] [address] [place] 2-Methylbutyrylglycin e/Creatinine (U) [Molar ratio] <0.1 Normal 0.0-0.4 [facility] Comment on above: Order Comment: Speci men Type: URINE SPECIMEN Ordering Facility: [facility] Address: [address] [place] [address] Performed By: #### L [id number] #### [facility] CLIA [id number] [address] [place] [address] [place] 2-Methylcitrate/Creat inine (U) [Molar ratio] <1.1 Normal 1.0-13.9 [facility] Comment on above: Order Comment: Speci men Type: URINE SPECIMEN Ordering Facility: [facility] Address: [address] [place] [address] Performed By: #### L [id number] #### [facility] CLIA [id number] [address] [place] [address] [place] 2-Oxoadipate/Creatini ne (U) [Molar ratio] <1.6 Normal 0.0-3.3 [facility] Comment on above: Order Comment: Speci men Type: URINE SPECIMEN Ordering Facility: [facility] Address: [address] [place] [address] Performed By: #### L [id number] #### [facility] CLIA [id number] [address] [place] [address] [place] 3-Hydroxyglutarate/Cr eatinine (U) [Molar ratio] 0.0 umol/mmolCr Normal 0.0-0.7 [facility] Comment on above: Order Comment: Speci men Type: URINE SPECIMEN Ordering Facility: [facility] Address: [address] [place] [address] Performed By: #### L [id number] #### [facility] CLIA [id number] [address] [place] [address] [place] 3-Hydroxyisovalerate/ Creatinine (U) [Molar ratio] 2.9 umol/mmolCr Normal 2.1-27.3 [facility] Comment on above: Order Comment: Speci men Type: URINE SPECIMEN Ordering Facility: [facility] Address: [address] [place] [address] Performed By: #### L [id number] #### [facility] CLIA [id number] [address] [place] [address] [place] 3-Methylcrotonylglyci ne/Creatinine (U) [Molar ratio] <0.3 Normal <0.3 [facility] Comment on above: Order Comment: Speci men Type: URINE SPECIMEN Ordering Facility: [facility] Address: [address] [place] [address] Performed By: #### L [id number] #### [facility] CLIA [id number] [address] [place] [address] [place] 3-Methylglutaconate/C reatinine (U) [Molar ratio] 0.3 umol/mmolCr Normal 0.0-2.0 [facility] Comment on above: Order Comment: Speci men Type: URINE SPECIMEN Ordering Facility: [facility] Address: [address] [place] [address] Performed By: #### L [id number] #### [facility] CLIA [id number] [address] [place] [address] [place] 3-Methylglutarate/Cre atinine (U) [Molar ratio] 0.2 umol/mmolCr Normal 0.0-0.6 [facility] Comment on above: Order Comment: Speci men Type: URINE SPECIMEN Ordering Facility: [facility] Address: [address] [place] [address] Performed By: #### L [id number] #### [facility] CLIA [id number] [address] [place] [address] [place] 4-Hydroxyphenylacetat e/Creatinine (U) [Molar ratio] 10.8 umol/mmolCr Normal 5.7-147.5 [facility] Comment on above: Order Comment: Speci men Type: URINE SPECIMEN Ordering Facility: [facility] Address: [address] [place] [address] Performed By: #### L [id number] #### [facility] CLIA [id number] [address] [place] [address] [place] 4-Hydroxyphenyllactat e/Creatinine (U) [Molar ratio] 20.8 umol/mmolCr Normal 1.3-23.0 [facility] Comment on above: Order Comment: Speci men Type: URINE SPECIMEN Ordering Facility: [facility] Address: [address] [place] [address] Performed By: #### L [id number] #### [facility] CLIA [id number] [address] [place] [address] [place] 4-Hydroxyphenylpyruva te/Creatinine (U) [Molar ratio] 0.0 umol/mmolCr Normal <=0.0 [facility] Comment on above: Order Comment: Speci men Type: URINE SPECIMEN Ordering Facility: [facility] Address: [address] [place] [address] Performed By: #### L [id number] #### [facility] CLIA [id number] [address] [place] [address] [place] 5-Oxoproline/Creatini ne (U) [Molar ratio] 1.5 umol/mmolCr Normal 0.4-3.1 [facility] Comment on above: Order Comment: Speci men Type: URINE SPECIMEN Ordering Facility: [facility] Address: [address] [place] [address] Performed By: #### L [id number] #### [facility] CLIA [id number] [address] [place] [address] [place] Acetoacetate/Creatini ne (U) [Molar ratio] <0.9 High 0.0-0.5 [facility] Comment on above: Order Comment: Speci men Type: URINE SPECIMEN Ordering Facility: [facility] Address: [address] [place] [address] Performed By: #### L [id number] #### [facility] CLIA [id number] [address] [place] [address] [place] Aconitate/Creatinine (U) [Molar ratio] 19.3 umol/mmolCr Normal 8.5-109.6 [facility] Comment on above: Order Comment: Speci men Type: URINE SPECIMEN Ordering Facility: [facility] Address: [address] [place] [address] Performed By: #### L [id number] #### [facility] CLIA [id number] [address] [place] [address] [place] Adipate/Creatinine (U) [Molar ratio] 1.3 umol/mmolCr Normal 0.3-9.2 [facility] Comment on above: Order Comment: Speci men Type: URINE SPECIMEN Ordering Facility: [facility] Address: [address] [place] [address] Performed By: #### L [id number] #### [facility] CLIA [id number] [address] [place] [address] [place] Alpha hydroxybutyrate/Creat inine (U) [Molar ratio] 1.0 umol/mmolCr Normal 0.0-2.7 [facility] Comment on above: Order Comment: Speci men Type: URINE SPECIMEN Ordering Facility: [facility] Address: [address] [place] [address] Performed By: #### L [id number] #### [facility] CLIA [id number] [address] [place] [address] [place] Alpha ketoglutarate/Creatin ine (U) [Molar ratio] 6.2 umol/mmolCr Normal 0.2-42.7 [facility] Comment on above: Order Comment: Speci men Type: URINE SPECIMEN Ordering Facility: [facility] Address: [address] [place] [address] Performed By: #### L [id number] #### [facility] CLIA [id number] [address] [place] [address] [place] Benzoate/Creatinine (U) [Molar ratio] <12.2 Normal 0.0-14.6 [facility] Comment on above: Order Comment: Speci men Type: URINE SPECIMEN Ordering Facility: [facility] Address: [address] [place] [address] Performed By: #### L [id number] #### [facility] CLIA [id number] [address] [place] [address] [place] Beta hydroxybutyrate/Creat inine (U) [Molar ratio] <1.6 Normal 0.1-2.6 [facility] Comment on above: Order Comment: Speci men Type: URINE SPECIMEN Ordering Facility: [facility] Address: [address] [place] [address] Performed By: #### L [id number] #### [facility] CLIA [id number] [address] [place] [address] [place] Butyrylglycine/Creati nine (U) [Molar ratio] 0.0 umol/mmolCr Normal 0.0-0.7 [facility] Comment on above: Order Comment: Speci men Type: URINE SPECIMEN Ordering Facility: [facility] Address: [address] [place] [address] Performed By: #### L [id number] #### [facility] CLIA [id number] [address] [place] [address] [place] Creatinine (U) [Mass/Vol] 275.7 mg/dL Normal 46.8-314.5 [facility] Comment on above: Order Comment: Speci men Type: URINE SPECIMEN Ordering Facility: [facility] Address: [address] [place] [address] Performed By: #### L [id number] #### [facility] CLIA [id number] [address] [place] [address] [place] Ethylmalonate/Creatin ine (U) [Molar ratio] 2.7 umol/mmolCr Normal 0.5-6.2 [facility] Comment on above: Order Comment: Speci men Type: URINE SPECIMEN Ordering Facility: [facility] Address: [address] [place] [address] Performed By: #### L [id number] #### [facility] CLIA [id number] [address] [place] [address] [place] Fumarate/Creatinine (U) [Molar ratio] 1.9 umol/mmolCr Normal 0.3-2.6 [facility] Comment on above: Order Comment: Speci men Type: URINE SPECIMEN Ordering Facility: [facility] Address: [address] [place] [address] Performed By: #### L [id number] #### [facility] CLIA [id number] [address] [place] [address] [place] Glutarate/Creatinine (U) [Molar ratio] 0.1 umol/mmolCr Normal 0.0-1.4 [facility] Comment on above: Order Comment: Speci men Type: URINE SPECIMEN Ordering Facility: [facility] Address: [address] [place] [address] Performed By: #### L [id number] #### [facility] CLIA [id number] [address] [place] [address] [place] Hexanoylglycine/Creat inine (U) [Molar ratio] <0.1 Normal 0.0-0.1 [facility] Comment on above: Order Comment: Speci men Type: URINE SPECIMEN Ordering Facility: [facility] Address: [address] [place] [address] Performed By: #### L [id number] #### [facility] CLIA [id number] [address] [place] [address] [place] Isobutyrylglycine/Cre atinine (U) [Molar ratio] <0.1 Normal 0.0-1.2 [facility] Comment on above: Order Comment: Speci men Type: URINE SPECIMEN Ordering Facility: [facility] Address: [address] [place] [address] Performed By: #### L [id number] #### [facility] CLIA [id number] [address] [place] [address] [place] Isocitrate/Creatinine (U) [Molar ratio] 62.1 umol/mmolCr Normal 9.1-271.9 [facility] Comment on above: Order Comment: Speci men Type: URINE SPECIMEN Ordering Facility: [facility] Address: [address] [place] [address] Performed By: #### L [id number] #### [facility] CLIA [id number] [address] [place] [address] [place] Lactate/Creatinine (U) [Molar ratio] 23.5 umol/mmolCr Normal 2.9-47.2 [facility] Comment on above: Order Comment: Speci men Type: URINE SPECIMEN Ordering Facility: [facility] Address: [address] [place] [address] Performed By: #### L [id number] #### [facility] CLIA [id number] [address] [place] [address] [place] Malate/Creatinine (U) [Molar ratio] 0.8 umol/mmolCr Normal 0.0-1.1 [facility] Comment on above: Order Comment: Speci men Type: URINE SPECIMEN Ordering Facility: [facility] Address: [address] [place] [address] Performed By: #### L [id number] #### [facility] CLIA [id number] [address] [place] [address] [place] Malonate/Creatinine (U) [Molar ratio] 0.0 umol/mmolCr Normal 0.0-0.1 [facility] Comment on above: Order Comment: Speci men Type: URINE SPECIMEN Ordering Facility: [facility] Address: [address] [place] [address] Performed By: #### L [id number] #### [facility] CLIA [id number] [address] [place] [address] [place] Methylmalonate/Creati nine (U) [Molar ratio] <0.4 Normal 0.0-0.6 [facility] Comment on above: Order Comment: Speci men Type: URINE SPECIMEN Ordering Facility: [facility] Address: [address] [place] [address] Performed By: #### L [id number] #### [facility] CLIA [id number] [address] [place] [address] [place] Methylsuccinate/Creat inine (U) [Molar ratio] 0.4 umol/mmolCr Normal 0.0-1.4 [facility] Comment on above: Order Comment: Speci men Type: URINE SPECIMEN Ordering Facility: [facility] Address: [address] [place] [address] Performed By: #### L [id number] #### [facility] CLIA [id number] [address] [place] [address] [place] N-acetylaspartate/Cre atinine (U) [Molar ratio] 0.8 umol/mmolCr Normal 0.1-8.9 [facility] Comment on above: Order Comment: Speci men Type: URINE SPECIMEN Ordering Facility: [facility] Address: [address] [place] [address] Performed By: #### L [id number] #### [facility] CLIA [id number] [address] [place] [address] [place] N-acetyltyrosine/Crea tinine (U) [Molar ratio] 0.3 umol/mmolCr Normal 0.0-1.2 [facility] Comment on above: Order Comment: Speci men Type: URINE SPECIMEN Ordering Facility: [facility] Address: [address] [place] [address] Performed By: #### L [id number] #### [facility] CLIA [id number] [address] [place] [address] [place] Oxalate/Creatinine (U) [Molar ratio] 1.7 umol/mmolCr Normal 0.7-12.4 [facility] Comment on above: Order Comment: Speci men Type: URINE SPECIMEN Ordering Facility: [facility] Address: [address] [place] [address] Performed By: #### L [id number] #### [facility] CLIA [id number] [address] [place] [address] [place] Pyruvate/Creatinine (U) [Molar ratio] 0.6 umol/mmolCr Normal 0.1-2.6 [facility] Comment on above: Order Comment: Speci men Type: URINE SPECIMEN Ordering Facility: [facility] Address: [address] [place] [address] Performed By: #### L [id number] #### [facility] CLIA [id number] [address] [place] [address] [place] Sebacate (C8)/Creatinine (U) [Molar ratio] <3.4 High 0.0-0.3 [facility] Comment on above: Order Comment: Speci men Type: URINE SPECIMEN Ordering Facility: [facility] Address: [address] [place] [address] Performed By: #### L [id number] #### [facility] CLIA [id number] [address] [place] [address] [place] Suberate/Creatinine (U) [Molar ratio] 0.9 umol/mmolCr Normal 0.0-7.4 [facility] Comment on above: Order Comment: Speci men Type: URINE SPECIMEN Ordering Facility: [facility] Address: [address] [place] [address] Performed By: #### L [id number] #### [facility] CLIA [id number] [address] [place] [address] [place] Suberylglycine/Creati nine (U) [Molar ratio] 0.0 umol/mmolCr Normal <=0.0 [facility] Comment on above: Order Comment: Speci men Type: URINE SPECIMEN Ordering Facility: [facility] Address: [address] [place] [address] Performed By: #### L [id number] #### [facility] CLIA [id number] [address] [place] [address] [place] Succinate/Creatinine (U) [Molar ratio] 0.7 umol/mmolCr Normal 0.3-27.4 [facility] Comment on above: Order Comment: Speci men Type: URINE SPECIMEN Ordering Facility: [facility] Address: [address] [place] [address] Performed By: #### L [id number] #### [facility] CLIA [id number] [address] [place] [address] [place] Succinylacetone/Creat inine (U) [Molar ratio] <0.4 Normal <0.4 [facility] Comment on above: Order Comment: Speci men Type: URINE SPECIMEN Ordering Facility: [facility] Address: [address] [place] [address] Performed By: #### L [id number] #### [facility] CLIA [id number] [address] [place] [address] [place] UOA CONSULTATION Normal [facility] Comment on above: Order Comment: Speci men Type: URINE SPECIMEN Ordering Facility: [facility] Address: [address] [place] [address] Result Comment: This urine organic acid analysis [...] and its performance characteristics determined by the [facility]. It has not been cleared or approved by the [place] Food and Drug Administration. The FDA had determined that such clearance or approval is not necessary. Performed By: #### L [id number] #### [facility] CLIA [id number] [address] [place] [address] [place] UOA REVIEW Reviewed by Forrest Gomez MD, Ph.D ([id number]) [facility] Comment on above: Order Comment: Speci men Type: URINE SPECIMEN Ordering Facility: [facility] Address: [address] [place] [address] Performed By: #### L [id number] #### [facility] CLIA [id number] [address] [place] [address] [place] Uracil/Creatinine (U) [Molar ratio] <0.4 Normal 0.0-5.1 [facility] Comment on above: Order Comment: Speci men Type: URINE SPECIMEN Ordering Facility: [facility] Address: [address] [place] [address] Performed By: #### L [id number] #### [facility] CLIA [id number] [address] [place] [address] [place] PYRUVATE+LACTATE BLon 2024 Lactate [Moles/Vol] 2.1 mmol/L Normal 0.5-2.2 [facility] Comment on above: Order Comment: Speci men Type: BLOOD SPECIMEN Ordering Facility: [facility] Address: [address] [place] [address] Result Comment: This test was developed, and its performance characteristics determined by the [facility] Department of Pathology and Laboratory Medicine. It has not been cleared or approved by the FDA. The [facility] Department of Pathology and Laboratory Medicine is regulated under CLIA as qualified to perform high-complexity testing. This test is used for clinical purposes. It should not be regarded as investigational or for research. Performed By: #### L ACPYR #### [facility] CLIA [id number] [address] [place] [address] [place] Pyruvate (Bld) [Moles/Vol] 0.05 mmol/L Normal 0.03-0.10 [facility] Comment on above: Order Comment: [facility]ver Type: BLOOD SPECIMEN Ordering Facility: [facility] Address: [address] [place] [address] Result Comment: This test was developed, and its performance characteristics determined by the [facility] Department of Pathology and Laboratory Medicine. It has not been cleared or approved by the FDA. The [facility] Department of Pathology and Laboratory Medicine is regulated under CLIA as qualified to perform high-complexity testing. This test is used for clinical purposes. It should not be regarded as investigational or for research. Performed By: #### L ACPYR #### [facility] CLIA [id number] [address] [place] [address] [place] VOLTAGE GATED CA IGGon 04-10 P/Q-TYPE CALCIUM CHANNEL ANTIBODY 0.0 pmol/L Normal 0.0-24.5 [facility] Comment on above: Order Comment: [facility] Type: BLOOD SPECIMEN Ordering Facility: [facility] Address: [address] [place] [address] Result Comment: INTE RPRETIVE INFORMATION: P/Q-Type Calcium Channel Antibody 0.0 to 24.5 pmol/L ............. Negative 24.6 to 45.6 pmol/L ............ Indeterminate 45.7 pmol/L or greater.......... Positive This test was developed and its performance characteristics determined by [facility]. It has not been cleared or approved by the [place] Food and Drug Administration. This test was performed in a CLIA certified laboratory and is intended for clinical purposes. Performed By: [facility] [address] [place] [id number] [address] Operator: Warren Simmons MD, PhD CLIA Number: [id number] Performed By: #### L ACPYR #### [facility] CLIA [id number] [facility] [address] [place] [address] [place] VOLTAGE-GATED POTASSIUM SZYMANSKI ABon 04-10-2025 VOLTAGE-GATED POTASSIUM CHANNEL AB, SER 0 pmol/L Normal 0-31 [facility] Comment on above: Order Comment: Speci men Type: BLOOD SPECIMEN Ordering Facility: [facility] Address: [address] [place] [address] Result Comment: INTE RPRETIVE INFORMATION: Voltage-Gated Potassium [...] developed and its performance characteristics determined by [facility]. It has not been cleared or approved by the [place] Food and Drug Administration. This test was performed in a CLIA certified laboratory and is intended for clinical purposes. Performed By: [facility] [address] [id number] [place] Operator: Warren Simmons MD, PhD CLIA Number: [id number] Performed By: #### V GKCAB #### [facility] CLIA [id number] [address] [place] [address] Coni 04-05-2025 [facility] Tele[facility] ([facility]) MORE KINGSLEY JR. ([id number]) 1965 M Date Time Provider Department 04/05/25 FIGUEREDOART [facility] During your visit today, we recorded [...] Fully Assessed Reason for Visit: Care Coordination [8652] Cmt: Gastroparesis clinic: chart review; new patient call Problem List As Of Date: 04/05/2025 (None) Encounter Status:Closed by SHENA STOCKTON on 04/05/25 Normal [facility] Debridementon 03-28-2025 SCOTT Vaughn 03/28/2025 4:19 PM Debridement Performed by: SCOTT Vaughn Authorized by: SCOTT Vaughn Consent: Consent obtained: Verbal and written Consent given by: Patient Risks discussed: Yes Debridement Details: Performed by: RN EMERGENCY ROOM Type: Sharp Level: Subcutaneous Tissue, Devitalized tissue and other material debrided: Callus and subcutaneous tissue Anesthesia administration: topical Anesthesia: EMLA Total Surface Area Debrided cm^2: 10.37 Specimen Taken: None Instrument: Curette Amount of bleeding: Medium Bleeding Control: Pressure Response to treatment: Procedure was tolerated well Tissue Applied?: No MANUALLY TRANSCRIBED RESULTS [employer] CBC AND AUTO DIFFon 03-04-20 ABSOLUTE BASOPHIL 0.2 X10E9/L Normal 0.0-0.2 [facility] Comment on above: Performed By: #### C BCA, CMP #### [facility] ([id number]) [address] [place] [address] ABSOLUTE NEUTROPHIL 6.0 X10E9/L Normal 1.5-6.6 [facility] Comment on above: Performed By: #### C BCA, CMP #### [facility] ([id number]) [address] [place] [address]85 Basophils/100 WBC (Bld) 2.4 % Normal [facility] Comment on above: Performed By: #### C BCA, CMP #### [facility] ([id number]) [address] [place] [address] 03585 Eosinophils (Bld) [#/Vol] 0.3 10*3/uL Normal 0.0-0.4 [facility] Comment on above: Performed By: #### C BCA, CMP #### [facility] ([id number]) [address] [place] [address] 22732 Eosinophils/100 WBC (Bld) 3.4 % Normal [facility] Comment on above: Performed By: #### C BCA, CMP #### [facility] ([id number]) [address] [place] [address] 92838 Erythrocyte distribution width (RBC) [Ratio] 15.0 % Normal 11.5-15.0 [facility] Comment on above: Performed By: #### C BCA, CMP #### [facility] ([id number]) [address] [place] [address] 49517 Hematocrit (Bld) [Volume fraction] 40.0 % Normal 39-49 [facility] Comment on above: Performed By: #### C BCA, CMP #### [facility] ([id number]) [address] [place] [address] 12725 Hemoglobin (Bld) [Mass/Vol] 13.7 g/dL Normal 13.0-17.0 [facility] Comment on above: Performed By: #### C BCA, CMP #### [facility] ([id number]) [address] [place] [address] 51793 Lymphocytes (Bld) [#/Vol] 2.1 10*3/uL Normal 1.0-3.5 [facility] Comment on above: Performed By: #### C BCA, CMP #### [facility] ([id number]) [address] [place] [address] 07963 Lymphocytes/100 WBC (Bld) 21.1 % Normal [facility] Comment on above: Performed By: #### C MELANIA, CMP #### [facility] ([id number]) [address] [place] [address] 98190 MCH (RBC) [Entitic mass] 28.8 pg Normal 27-34 [facility] Comment on above: Performed By: #### C MELANIA, CMP #### [facility] ([id number]) [address] [place] [address] 66800 MCHC (RBC) [Mass/Vol] 34.3 g/dL Normal 32-36 [facility] Comment on above: Performed By: #### C MELANIA, CMP #### [facility] ([id number]) [address] [place] [address] [place] [address] MCV (RBC) [Entitic vol] 84 fL Normal 80-100 [facility] Comment on above: Performed By: #### C BCA, CMP #### [facility] ([id number]) [address] [place] [address] 18640 Monocytes (Bld) [#/Vol] 1.4 10*3/uL High 0-0.9 [facility] Comment on above: Performed By: #### C BCA, CMP #### [facility] ([id number]) [address] [place] [address] 02885 Monocytes/100 WBC (Bld) 13.4 % Normal [facility] Comment on above: Performed By: #### C MELANIA, CMP #### [facility] ([id number]) [address] [place] [address] 40643 Neutrophils/100 WBC (Bld) 59.7 % Normal [facility] Comment on above: Performed By: #### C MELANIA, CMP #### [facility] ([id number]) [address] [place] [address] 59253 Platelet mean volume (Bld) [Entitic vol] 8.1 fL Normal 7-12 [facility] Comment on above: Performed By: #### C MELANIA, CMP #### [facility] ([id number]) [address] [place] [address] 31928 Platelets (Bld) [#/Vol] 334 10*3/uL Normal 150-450 [facility] Comment on above: Performed By: #### C MELANIA, CMP #### [facility] ([id number]) [address] [place] [address] 81510 RBC COUNT 4.76 X10E12/L Normal 4.10-5.70 [facility] Comment on above: Performed By: #### C MELANIA, CMP #### [facility] ([id number]) [address] [place] [address] 22206 WBC (Bld) [#/Vol] 10.1 10*3/uL Normal 4.0-11.0 [facility] Comment on above: Performed By: #### C MELANIA, CMP #### [facility] ([id number]) [address] [place] [address] 99708 COMPREHENSIVE METABOLIC PANE Anuel 03-04-2025 Albumin [Mass/Vol] 2.9 g/dL Low 3.2-5.3 [facility] Comment on above: Performed By: #### C BCA, CMP #### [facility] ([id number]) [address] [place] [address] 34840 ALP [Catalytic activity/Vol] 95 U/L Normal 39-130 [facility] Comment on above: Performed By: #### C BCA, CMP #### [facility] ([id number]) [address] [place] [address] 66887 ALT [Catalytic activity/Vol] 15 U/L Normal 0-40 [facility] Comment on above: Performed By: #### C BCA, CMP #### [facility] ([id number]) [address] [place] [address] 08421 Anion gap [Moles/Vol] 7 mmol/L Normal 5-15 [facility] Comment on above: Performed By: #### C BCA, CMP #### [facility] ([id number]) [address] [place] [address] 50730 AST [Catalytic activity/Vol] 18 U/L Normal 0-41 [facility] Comment on above: Performed By: #### C BCA, CMP #### [facility] ([id number]) [address] [place] [address] 28950 Bilirubin [Mass/Vol] 0.9 mg/dL Normal 0.3-1.2 [facility] Comment on above: Performed By: #### C BCA, CMP #### [facility] ([id number]) [address] [place] [address] 73848 Calcium [Mass/Vol] 8.3 mg/dL Low 8.5-10.5 [facility] Comment on above: Performed By: #### C BCA, CMP #### [facility] ([id number]) [address] [place] [address] 11107 Chloride [Moles/Vol] 102 mmol/L Normal 98-109 [facility] Comment on above: Performed By: #### C BCA, CMP #### [facility] ([id number]) [address] [place] [address] 51959 CO2 [Moles/Vol] 23 mmol/L Normal 22-32 [facility] Comment on above: Performed By: #### C BCA, CMP #### [facility] ([id number]) [address] [place] [address] 83760 Creatinine [Mass/Vol] 1.20 mg/dL Normal 0.70-1.20 [facility] Comment on above: Result Comment: METH OD TRACEABLE TO IDMS STANDARD Performed By: #### C BCA, CMP #### [facility] ([id number]) [address] [place] [address] 80173 GFR/1.73 sq M.predicted among non-blacks MDRD (S/P/Bld) [Vol rate/Area] 70 mL/min/{1.73_m2} Normal >59 [facility] Comment on above: Result Comment: Reported eGFR is based on the CKD-EPI 2020 equation that does not use a race coefficient. Performed By: #### C BCA, CMP #### [facility] ([id number]) [address] [place] [address] 75363 Glucose [Mass/Vol] 213 mg/dL High 65-99 [facility] Comment on above: Performed By: #### C BCA, CMP #### [facility] ([id number]) [address] [place] [address] 97496 Potassium [Moles/Vol] 3.6 mmol/L Normal 3.5-5.0 [facility] Comment on above: Performed By: #### C BCA, CMP #### [facility] ([id number]) [address] [place] [address] 68175 Protein [Mass/Vol] 8.3 g/dL High 6.0-8.0 [facility] Comment on above: Performed By: #### C BCA, CMP #### [facility] ([id number]) [address] [place] [address] 29790 Sodium [Moles/Vol] 132 mmol/L Low 134-146 [facility] Comment on above: Performed By: #### C BCA, CMP #### [facility] ([id number]) [address] [place] [address] 77801 Urea nitrogen [Mass/Vol] 18 mg/dL Normal 5-23 [facility] Comment on above: Performed By: #### C MELANIA, CMP #### [facility] ([id number]) [address] [place] [address] 92106 Lactate (P damon) [Moles/Vol]o n 03-04-2025 LACTATE W/REFLEX 1.3 mmol/L Normal 0.4-2.0 [facility] Comment on above: Result Comment: Result did not trigger repeat Lactate, re-order if needed. Performed By: #### 3 2133-1 #### [facility] ([id number]) [address] [place] [address] 46223 SUPERFICIAL WOUND CULTUREon 03-04-2025 Bacteria identified Aer [...] 0.25 F DOXYCYCLINE S <=0.5 F Susceptible [facility] Comment on above: Performed By: #### 6 32-0 #### [facility] ([id number]) [address], [address] [place] [address] XR FOOT RT MIN 3 VWSon 03-04 [...] Hawthorne MD on 03/04/2025 10:59 AM Normal [facility] 11-21-2024 [facility] Telephone ([facility]) MORE KINGSLEY JR. 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 ([id number]) 1965 M Date Time Provider Department 06/22/24 ART FIGUEREDO [facility] During your visit today, we recorded [...] 07/05/2024 8:20 AM Signed [facility] if [facility] been scheduled. [...] 10:57 AM Signed Dexcom or empties trial. [place] [facility]. EGG is in. Art Figueredo DO 07/12/2024 10:57 AM Signed Addended by: ART FIGUEREDO on: 07/12/2024 10:57 AM Modules accepted: Orders Layla Elena RN 07/12/2024 12:16 PM Signed Screens positive for EMPTIES medically however, unsure if will be complaint with follow ups evaluate at [facility] Aparicio Rose M 07/13/2024 11:43 AM Signed Patient is scheduled at [facility] with GP Team Allergies As of Date: 06/22/2024 (Not on File) Date Reviewed: Never Reviewed Reason for Visit: Appointment [186] Primary Visit Diagnosis:Gastroparesi s [K31.84] Order(s):EGG (ELECTROGASTROGRAPHY) [61341QLQ] Order #: [id number] Problem List As Of Date: 06/22/2024 (None) Encounter Status:Closed by DEONNA PATEL on 06/22/24 Normal [facility] Glucose Glucometer (BldC) [M ass/Vol]Ordered By: Tracy Yoon on 02-03-2024 Glucose [Mass/Vol] 234 mg/dL [facility] Comment on above: Random Glucose Refer ence Range is dependent on time and content of last meal. Glucose of more than 200 mg/dL in a nonstressed, ambulatory subject supports the diagnosis of Diabetes Mellitus. No Panel InformationOrdered By: Tracy Yoon on 02-03-2024 Bedside Glucose Comment Glu2: cleaned meter [facility] A1C HEMOGLOBINon 11-08-2023 HbA1c (Bld) [Mass fraction] 10.4 % [employer] Other Glucose - FINGER STICKon Glucose [Mass/Vol] 319 mg/dL [facility] Other HbA1c (Bld) [Mass fraction]o n 11-08-2023 A1C HEMOGLOBIN [employer] Other XR CHEST 1 Von 03-19-2023 XR CHEST 1 V ONE-VIEW CHEST RADIOGRAPH, 03/18/2023 8:32 PM EDT COMPARISON: Chest, 01/20/2021. CLINICAL HISTORY: Dizziness near syncope. Findings and impression: 1. Minimal linear atelectasis or scarring in the lingula. Lungs otherwise clear. 2. Borderline heart size. 3. No acute osseous abnormality. Electronically authenticated by: Mahad DIXON Date: 2023-03-18 22:26 Normal [facility] BNPon 03-18-2023 Natriuretic peptide B (Bld) [Mass/Vol] 174.0 pg/mL Normal <=900.0 [facility] Comment on above: Performed By: #### H STROPN, CMP, BNP #### [facility] [address] [place] [address] Dr. Michael Gonzales CBC AUTO DIFFon 03-18-2023 BASO # 0.1 103/ul Normal 0.0-0.[address] [facility] Comment on above: Performed By: #### C BC #### [facility] [address] [address] [address] Michael Gonzales Basophils/100 WBC (Bld) 1.4 % Normal 0.2-2.[address] [facility] Comment on above: Performed By: #### C BC #### [facility] [address] [address] [address] Michael Gonzales EO # 0.2 103/ul Normal 0.0-0.[address] [facility] Comment on above: Performed By: #### C BC #### [facility] [address] [place] [address] Dr. Michael Gonzales Eosinophils/100 WBC (Bld) 2.3 % Normal 0.9-7.[address] [facility] Comment on above: Performed By: #### C BC #### [facility] [address] [place] [address] Dr. Michael Gonzales Erythrocyte distribution width (RBC) [Ratio] 13.9 % Normal 11.0-15.[address] [facility] Comment on above: Performed By: #### C BC #### [facility] [address] [place] [address] Dr. Michael Gonzales Hematocrit (Bld) [Volume fraction] 43.6 % Normal 42.0-54.[address] [facility] Comment on above: Performed By: #### C BC #### [facility] [address] [place] [address] Dr. Michael Gonzales Hemoglobin (Bld) [Mass/Vol] 14.6 g/dL Normal 14.0-18.[address] [facility] Comment on above: Performed By: #### C BC #### [facility] [address] [place] [address] Dr. Michael Gonzales IG # 0.05 10e3/ul Critically high 0.00-0.03 [facility] Comment on above: Performed By: #### C BC #### [facility] [address] [place] [address] Dr. Michael Gonzales IG % 0.5 % Normal 0.0-0.[address] [facility] Comment on above: Performed By: #### C BC #### [facility] [address] [place] [address] Dr. Michael Gonzales LYMPH # 2.4 103/ul Normal 1.2-3.[address] [facility] Comment on above: Performed By: #### C BC #### [facility] [address] [place] [address] Dr. Michael Gonzales Lymphocytes/100 WBC (Bld) 26.3 % Normal 20.5-60.[address] [facility] Comment on above: Performed By: #### C BC #### [facility] [address] [place] [address] Dr. Michael Gonzales MANUAL DIFF REQ NO Normal [facility] Comment on above: Performed By: #### C BC #### [facility] [address] [place] [address] Dr. Michael Gonzales MCH (RBC) [Entitic mass] 28.7 pg Normal 25.9-34.[address] [facility] Comment on above: Performed By: #### C BC #### [facility] [address] [place] [address] Dr. Michael Gonzales MCHC (RBC) [Mass/Vol] 33.5 g/dL Normal 29.9-35.[address] [facility] Comment on above: Performed By: #### C BC #### [facility] [address] [place] [address] Dr. Michael Gonzales MCV (RBC) [Entitic vol] 85.7 fL Normal 80.0-94.[address] [facility] Comment on above: Performed By: #### C BC #### [facility] [address] [place] [address] Dr. Michael Gonzales MONO # 1.3 103/ul Critically high 0.3-0.8 [facility] Comment on above: Performed By: #### C BC #### [facility] [address] [place] [address] Dr. Michael Gonzales Monocytes/100 WBC (Bld) 13.6 % Critically high 1.7-12.[address] [facility] Comment on above: Performed By: #### C BC #### [facility] [address] [place] [address] Dr. Michael Gonzales NEUT # 5.2 103/ul Normal 1.4-6.[address] [facility] Comment on above: Performed By: #### C BC #### [facility] [address] [place] [address] Dr. Michael Gonzales Neutrophils/100 WBC (Bld) 55.9 % Normal 43.0-75.[address] [facility] Comment on above: Performed By: #### C BC #### [facility] [address] [place] [address] Dr. Michael Gonzales Platelet mean volume (Bld) [Entitic vol] 10.9 fL Normal 9.5-13.[address] [facility] Comment on above: Performed By: #### C BC #### [facility] [address] [place] [address] Dr. Michael Gonzales PLT 219 103/ul Normal 150-450 [facility] Comment on above: Performed By: #### C BC #### [facility] [address] [place] [address] Dr. Michael Gonzales RBC 5.09 106/ul Normal 4.70-6.10 [facility] Comment on above: Performed By: #### C BC #### [facility] [address] [place] [address] Dr. Michael Gonzales WBC 9.2 103/ul Normal 4.0-11.0 [facility] Comment on above: Performed By: #### C BC #### [facility] [address] [place] [address] Dr. Michael Gonzales MAGNESIUMon 03-18-2023 Magnesium [Mass/Vol] 2.0 mg/dL Normal 1.8-2.4 [facility] Comment on above: Performed By: #### M G #### [facility] [address] [place] [address] Dr. Michael Gonzales PROF 14(COMP METB)on 04-27-2 023 Albumin [Mass/Vol] 3.3 g/dL Critically low 3.4-5.0 [facility] Comment on above: Performed By: #### H STROPN, CMP, BNP #### [facility] [address] [address] [address] Michael Gonzales Albumin/Globulin [Mass ratio] 0.7 {ratio} Normal [facility] Comment on above: Performed By: #### H STROPN, CMP, BNP #### [facility] [address] [address] [address] Michael Gonzales ALP [Catalytic activity/Vol] 118 U/L Critically high 46-[address] [facility] Comment on above: Performed By: #### H STROPN, CMP, BNP #### [facility] [address] [place] [address] Dr. Michael Gonzales ALT [Catalytic activity/Vol] 19 U/L Normal 16-[address] [facility] Comment on above: Performed By: #### H STROPN, CMP, BNP #### [facility] [address] [place] [address] Dr. Michael Gonzales Anion gap [Moles/Vol] 13.3 mmol/L Normal [facility] Comment on above: Performed By: #### H STROPN, CMP, BNP #### [facility] [address] [place] [address] Dr. Michael Gonzales AST [Catalytic activity/Vol] 24 U/L Normal 15-[address] [facility] Comment on above: Performed By: #### H STROPN, CMP, BNP #### [facility] [address] [place] [address] Dr. Michael Gonzales Bilirubin [Mass/Vol] 1.0 mg/dL Normal 0.2-1.[address] [facility] Comment on above: Performed By: #### H STROPN, CMP, BNP #### [facility] [address] [place] [address] Dr. Michael Gonzales Calcium [Mass/Vol] 8.7 mg/dL Normal 8.5-10.1 [facility] Comment on above: Performed By: #### H STROPN, CMP, BNP #### [facility] [address] [address] [address] Michael Gonzales Chloride [Moles/Vol] 101 mmol/L Normal 98-[address] [facility] Comment on above: Performed By: #### H STROPN, CMP, BNP #### [facility] [address] [address] [address] Michael Gonzales CO2 [Moles/Vol] 22.0 mmol/L Normal 21.0-32.0 [facility] Comment on above: Performed By: #### H STROPN, CMP, BNP #### [facility] [address] [address] [address] Michael Gonzales Creatinine [Mass/Vol] 2.08 mg/dL Critically high 0.70-1.[address] [facility] Comment on above: Performed By: #### H STROPN, CMP, BNP #### [facility] [address] [address] [address] Michael Gonzales EGFR-AF LITHUANIAN 40 mL/min/1.73m2 Critically low >=[address] [facility] Comment on above: Performed By: #### H STROPN, CMP, BNP #### [facility] [address] [address] [address] Michael Gonzales EGFR-NON AF LITHUANIAN 33 mL/min/1.73m2 Critically low >=[address] [facility] Comment on above: Performed By: #### H STROPN, CMP, BNP #### [facility] [address] [address] [address] Michael Gonzales Globulin (S) [Mass/Vol] 4.6 g/dL Normal [facility] Comment on above: Performed By: #### H STROPN, CMP, BNP #### [facility] [address] [address] [address] Michael Gonzales Glucose [Mass/Vol] 319 mg/dL Critically high 74-106 [facility] Comment on above: Performed By: #### H STROPN, CMP, BNP #### [facility] [address] [address] [address] Michael Gonzales Potassium [Moles/Vol] 4.3 mmol/L Normal 3.5-5.[address] [facility] Comment on above: Performed By: #### H STROPN, CMP, BNP #### [facility] [address] [place] [address] Dr. Michael Gonzales Protein [Mass/Vol] 7.9 g/dL Normal 6.4-8.2 [facility] Comment on above: Performed By: #### H STROPN, CMP, BNP #### [facility] [address] [place] [address] Dr. Michael Gonzales Sodium [Moles/Vol] 132 mmol/L Critically low 136-145 [facility] Comment on above: Performed By: #### H STROPN, CMP, BNP #### [facility] [address] [place] [address] Dr. Michael Gonzales Urea nitrogen [Mass/Vol] 33.0 mg/dL Critically high 7.0-18.[address] [facility] Comment on above: Performed By: #### H STROPN, CMP, BNP #### [facility] [address] [place] [address] Dr. Michael Gonzales Urea nitrogen/Creatinine [Mass ratio] 15.9 mg/mg Normal [facility] Comment on above: Performed By: #### H YASMEEN, CMP, BNP #### [facility] [address] [place] [address] Dr. Michael Gonzales PROTIMEon 03-18-2023 INR Coag (PPP) [Relative time] 0.93 {INR} Normal [facility] Comment on above: Performed By: #### P TT, PT #### [facility] [facility] [address] [place] [address] Dr. Michael Gonzales INR GUIDELINES SEE BELOW Normal [facility] Comment on above: Result Comment: AMAURI RED INR: 2.0 - 3.0 CONDITIONS NOT LISTED BELOW 2.5 - 3.5 FOR PROSTHETIC HEART VALVE REPLACEMENT 2.5 - 3.5 RECURRENT THROMBOSIS Performed By: #### P TT, PT #### [facility] [address] [place] [address] Dr. Michael Gonzales PT Coag (PPP) [Time] 9.9 s Normal 9.0-11.6 [facility] Comment on above: Performed By: #### P TT, PT #### [facility] [address] [place], [place] [address] Dr. Michael Gonzales PTTon 03-18-2023 aPTT Coag (Bld) [Time] 26.5 s Normal 22.3-36.2 [facility] Comment on above: Performed By: #### P TT, PT #### [facility] [address] [place], [place] [address] Dr. Michael Gonzales TROPONIN, HIGH SENSITIVITYon 03-18-2023 HSTROP 7.3 pg/mL Normal 4.0-76.1 [facility] Comment on above: Result Comment: CUT- OFF POINTS HAVE BEEN ESTABLISHED BASED ON THE FOURTH UNIVERSAL DEFINITIONS OF MYOCARDIAL INFARCTION. THE UPPER REFERENCE LIMIT (URL) OF TROPONIN, DEFINED THE 99TH PERCENTILE OF cTnI DISTRIBUTION IN A REFERENCE POPULATION, HAS BEEN CONFIRMED THE DECISION THRESHOLD FOR [facility] DIAGNOSIS. Performed By: #### H STROPN, CMP, BNP #### [facility] [address] [place] [address] [address] Michael Gonzales XR FOOT LEFT 3+ [...] osteomyelitis is not excluded. Workstation ID: [id number] [facility] EXAMINATION: XR FOOT LEFT 3+ VIEWS (STANDARD) 01/24/2021 1:27 pm HISTORY: ORDERING SYSTEM PROVIDED HISTORY: Subacute osteomyelitis of left foot (HCC), TECHNOLOGIST PROVIDED HISTORY: Illness/Other Reason for exam: non healing wound on top of foot Cancer History: Surgery, RadiationHistory: Encounter Type: Initial Additional signs and symptoms: pain ORDERING SYSTEM PROVIDED DIAGNOSIS CODES: M86.272 Subacute osteomyelitis of left foot (HCC) COMPARISON: 01/09/2021 [facility] Interface, Rad In Fu ji Speechq [...] osteomyelitis is not excluded. Workstation ID: [id number] [facility] XR FOOT LEFT 3+ VIEWS (STAND [...] Jan 25, 2021 1:58:20 PM EST Normal [facility] Comment on above: Order Comment: Injur y/Trauma or Illness?:Illness/Other How long have you had these symptoms (acute/chronic)?:Acute Reason for exam?:non healing wound on top of foot History of cancer?: Surgeries, chemotherapy, or radiation?: Type of Exam?:Initial Additional signs and symptoms?:pain Otheron 01-09-2021 No acute osseous abnormality. Workstation ID: [id number] [facility] EXAMINATION: XR ANKL E LEFT 3+ [...] tissues are diffusely edematous with skin thickening. [facility] Interface, Rad In Fu ji Speechq [...] No acute osseous abnormality. Workstation ID: [id number] [facility] XR ANKLE LEFT 3+ VIEWS (JONI HUNG)on [...] WedJan 09, 2021 4:10:37 PM EST Normal [facility] Comment on above: Order Comment: Injur [...] on WedJan 09, 2021 4:10:37 PM EST [facility] Comment on above: Order Comment: [...] Response to Treatment:: Procedure was tolerated well [facility] Basic Metabolic Panelon 12-3 Anion gap [Moles/Vol] 9 mmol/L Low 10 - 2 0 mmol/L [facility] Calcium [Mass/Vol] 8.9 mg/dL 8.4 - 10. 2 mg/dL [facility] Chloride [Moles/Vol] 104 mmol/L 98 - 10 8 mmol/L [facility] Creatinine [Mass/Vol] 1.01 mg/dL 0.50 - 1.30 [facility] GFR/1.73 sq M predicted among non-blacks MDRD (S/P/Bld) [Vol rate/Area] The eGFR should be used for monitoring renal function only and not for medication dosing. [facility] GFR/1.73 sq M.predicted CKD-EPI (S/P/Bld) [Vol rate/Area] 84 >=60 mL/min/1.73 m2 [facility] Glucose [Mass/Vol] 156 mg/dL High 65 - 99 mg/dL [facility] HCO3 [Moles/Vol] 27 mmol/L 21 - 32 mmol/L [facility] Interpretation and review of laboratory results Abnormal [facility] Potassium [Moles/Vol] 3.8 mmol/L 3.5 - 5.1 mmol/L [facility] Sodium [Moles/Vol] 136 mmol/L 135 - 145 mmol/L [facility] Urea nitrogen [Mass/Vol] 15 mg/dL 8 - 25 mg/dL [facility] Urea nitrogen/Creatinine [Mass ratio] 14.9 mg/mg [facility] CBCon 11-21-2020 Erythrocyte distribution width (RBC) [Entitic vol] 15.4 % High 11.6 - 14.8 % [facility] Hematocrit (Bld) [Volume fraction] 34.1 % Low 41 - 53 % [facility] Hemoglobin (Bld) [Mass/Vol] 10.3 g/dL Low 13.5 - 17.5 g/dL [facility] Interpretation and review of laboratory results Abnormal [facility] MCH (RBC) [Entitic mass] 25.5 pg Low 26 - 34 pg [facility] MCHC (RBC) [Mass/Vol] 30.2 g/dL Low 31 - 37 g/dL [facility] MCV (RBC) [Entitic vol] 84.4 fL 80 - 100 fL [facility] Nucleated RBC (Bld) [#/Vol] 0.00 10*3/uL [facility] Nucleated RBC/100 WBC (Bld) [Ratio] 0.0 % [facility] Platelet mean volume (Bld) [Entitic vol] 10.0 fL 9.4 - 12.4 fL [facility] Platelets (Bld) [#/Vol] 494 10*3/uL High [facility] RBC (Bld) [#/Vol] 4.04 10*6/uL Low [facility] WBC (Bld) [#/Vol] 6.26 10*3/uL [facility] eah Magnesium Levelon 11-21-2020 Interpretation and review of laboratory results Normal [facility] Magnesium [Mass/Vol] 1.8 mg/dL 1.6 - 2 .4 mg/dL [facility] POC Glucoseon 11-21-2020 Glucose [Mass/Vol] 157 mg/dL High 65 - 99 mg/dL [facility] Interpretation and review of laboratory results Abnormal [facility] Glucose [Mass/Vol] 132 mg/dL High 65 - 99 mg/dL [facility] Interpretation and review of laboratory results Abnormal [facility] Glucose [Mass/Vol] 154 mg/dL High 65 - 99 mg/dL [facility] Interpretation and review of laboratory results Abnormal [facility] Basic Metabolic Panelon 10-24 Anion gap [Moles/Vol] 8 mmol/L Low 10 - 2 0 mmol/L [facility] Calcium [Mass/Vol] 8.6 mg/dL 8.4 - 10. 2 mg/dL [facility] Chloride [Moles/Vol] 103 mmol/L 98 - 10 8 mmol/L [facility] Creatinine [Mass/Vol] 1.02 mg/dL 0.50 - 1.30 [facility] GFR/1.73 sq M predicted among non-blacks MDRD (S/P/Bld) [Vol rate/Area] The eGFR should be used for monitoring renal function only and not for medication dosing. [facility] GFR/1.73 sq M.predicted CKD-EPI (S/P/Bld) [Vol rate/Area] 83 >=60 mL/min/1.73 m2 [facility] Glucose [Mass/Vol] 151 mg/dL High 65 - 99 mg/dL [facility] HCO3 [Moles/Vol] 28 mmol/L 21 - 32 mmol/L [facility] Potassium [Moles/Vol] 3.7 mmol/L 3.5 - 5.1 mmol/L [facility] Sodium [Moles/Vol] 135 mmol/L 135 - 145 mmol/L [facility] Urea nitrogen [Mass/Vol] 13 mg/dL 8 - 25 mg/dL [facility] Urea nitrogen/Creatinine [Mass ratio] 12.7 mg/mg [facility] CBCon 11-20-2020 Erythrocyte distribution width (RBC) [Entitic vol] 15.7 % High 11.6 - 14.8 % [facility] Hematocrit (Bld) [Volume fraction] 32.9 % Low 41 - 53 % [facility] Hemoglobin (Bld) [Mass/Vol] 9.9 g/dL Low 13.5 - 17.5 g/dL [facility] Interpretation and review of laboratory results Abnormal [facility] MCH (RBC) [Entitic mass] 25.6 pg Low 26 - 34 pg [facility] MCHC (RBC) [Mass/Vol] 30.1 g/dL Low 31 - 37 g/dL [facility] MCV (RBC) [Entitic vol] 85.0 fL 80 - 100 fL [facility] Nucleated RBC (Bld) [#/Vol] 0.00 10*3/uL [facility] Nucleated RBC/100 WBC (Bld) [Ratio] 0.0 % [facility] Platelet mean volume (Bld) [Entitic vol] 10.2 fL 9.4 - 12.4 fL [facility] Platelets (Bld) [#/Vol] 512 10*3/uL High [facility] RBC (Bld) [#/Vol] 3.87 10*6/uL Low [facility] ealt WBC (Bld) [#/Vol] 7.74 10*3/uL [facility] CRP, Inflammationon 11-20-20 20 CRP [Mass/Vol] 162.0 mg/L High <=10.0 [facility] Magnesium Levelon 11-20-2020 Interpretation and review of laboratory results Normal [facility] Magnesium [Mass/Vol] 1.7 mg/dL 1.6 - 2 .4 mg/dL [facility] Otheron 11-20-2020 Interpretation and review of laboratory results Abnormal [facility] POC Glucoseon 11-20-2020 Glucose [Mass/Vol] 121 mg/dL High 65 - 99 mg/dL [facility] Interpretation and review of laboratory results Abnormal [facility] Glucose [Mass/Vol] 117 mg/dL High 65 - 99 mg/dL [facility] Interpretation and review of laboratory results Abnormal [facility] Glucose [Mass/Vol] 147 mg/dL High 65 - 99 mg/dL [facility] Interpretation and review of laboratory results Abnormal [facility] Glucose [Mass/Vol] 177 mg/dL High 65 - 99 mg/dL [facility] Interpretation and review of laboratory results Abnormal [facility] Sedimentation Rateon 020 ESR (Bld) [Velocity] 116 mm/h [facility] Interpretation and review of laboratory results Abnormal [facility] TISSUE EXAMon 11-20-2020 Case Report Surgical Pathology Report Case: [id number] Authorizing Provider: Leanne Cherry DPM Collected: 11/18/2020 12:59 PM Ordering Location: [facility] Received: 11/18/2020 01:28 PM Pathologist: Boy Cortez MD Specimen: Foot, Left, Left Foot Bone [facility] Pathology report final diagnosis Narrative i5numXOdDIPhnMB7BnEdQX Gmx2sde9KkzLIhyKSyERzm yUVgreNzsv26hXU0sO60WZ 8zMJZpHuG8LMOsojR3Nws6 RGZeDPDliVTpN275z6lvi7 aywcAlqFG3sIloRDJuEFFy YWluXGJcZnMyMCBBLiAgXH Hze4FwJ8A2NLAwYSlnw9ef UIZaCXbzl4BxAHuZHNVZUE 3UBQ8wqCY0CAfAACJUH1lZ fEB3IrU5zCH9BZ59XWYgUR ZdwXRhFUvuL079Sk3dTLOf arSodTYhhQKtSFyllo13TY E3TLhrMzodbVC8YMogWnvy fG5vrYTFPCUEIdoGRfdipo HtRZ7GFNoNUyUWQP98Wu56 WFDkWVXpvZClBQhjF805QF DkpYGKe493s7ylbKAwMMwy NcgvuGSfpdF1RPqIPPRHZC yHKmZkIU6aGTqLPCWWPwR2 Nb79ELJgGLPwxKRgXUaoC7 58HGZrNPntDRHcr4GqJ0Ba YlxmczIwICwgZXhjaXNpb2 97g8oeoDLeLOqzBryamODk fnU8WWtDMEYAQKvNPgNfMQ 0vYKnUW3HCWaS7EyYoXIR7 MXwxfXtcZmxkcnNsdCBcJz PamF4qnDjztN1vOrlwfdWt JLWtrwcaxHfcYVozvQ06Af PlCnKjRIG7bAHvv4J3FU8x xPFrdWRepg3abGOiTGOvpr ZcsSKdVOHnQ34VUtOWJUSV T17VBZXFYVIYQ0XUC0hIPP K4PdK8gDH3WuN1WtqjTMQU OIKKPAxCLO5YDEUWZLIADS 4POgSqA6vNWPXNNpDzCARK YHMKCNWtWgLOQU3gNfk0JU CfkRDRo607D5jKHRKICmGz IPNDJADKRFWkHG4JIOWTRT SKAU0QTTEMN69YLVLYOCHY J6GGE0iXHQJlb5PVdXAzzL X1WkOlIBM8CkqvOC7jAHmS Z2KQB0tTYMEsRLTCAALRCF MkCM3JMOpFXN8NAZUeTJUR YKUWFDPkBqOHCH0jKQiCNH 2KHPQkCJAGWNVEESCoPA8Y WRPXZE4PMWYWIJCBH63SNS EHKYDFW4JLX9tUQJANPQOW DfZTFvNQHA0AGINMXVCXPE 9FTkR9 [facility] Pathology report gross observation Narrative m5kzaWAfQXNfsSE7GcZfNK Ang9ldt5DxfQVfiSWoSMhh zUBlpoVtqf76vBJ4tZ60HJ 0xCCYqJhQ3BQBmpoY4Ono7 UKNiMPMpfJUfD884a9yxs2 cqawQqiWG8uFdrKHQxODOn YFosBPUdNtDjQeZbWYl8WL FfjS7eBi0ymQPmbQ5fTAZp x0gntpN4KVPsFkHwKy1iyT voPNNdvAVGk94iZrwbITAa d9IdC8X3CPKmTNeao5kaQA ZeFPxss4UwCNdNXABKOR8W HQ8wzDT1PIiOBDLDU6dEoI W6VINqlHC5JK11XJKiLNMq sTAyFFflF915sGGrIEmyWr cizPV6JBbaCfuneW3vhEQX HIDJScvKTljrdgXoSH5CKK YIQJ1KqBN9ERWazYW1YZ58 GNEbHMYhzMCcRLetC982OV BsYWluXGZzMjAgIGZyYWdt EB44PKPkPW9vIBWhicSjgP Hqd1ImwM2jYRHwKDM0QWIq AxD2WGEeYuCgpDspwl40VY A0h3vuvKXjUWclHhmuwLOu acT5BAtBEHCXXWxBFmDcOC 2vBZlOY5VCBHfRCsowIJV4 D1cboPP0d2lxbYMql7r1FI xkKLV0nH59YVYaUGibg5rk KVNaVBqhm8EnXZzMYXLHGW 7VXV6mkIA2HHtQBGZMPJmg YKU9W4ioiHK2r0kctEUyf8 f3DXjuGJH0oTbwsXKrcsfe rkFkKWBkT0LlyJe2cRUhKP ZvciBkZWNhbGNpZmljYXRp a71oYAHRf0OyaBa8QMT3Tl 8gnIRtVMXbjyZpCSUsq6Qk dHRlKHMpLlxwYXJccGFyZF juYXAbXE2bnYRhJKwgz6Tw UDL3ZE7uwwK4vV0eOTSlrg Xoqj2eJKEnmOkqHJBxu4Iz NNfgEYqyd7KwmXApXC8iBa D1JImzPAIxkoMbRXW3IO65 KDLFWE6sKqrbbBNgSE0DES X5ERLiNUQzxddfREEoBEZp YlxwYXJcdiBTTUFSVExJU1 QgGVMZNWUOPMGfSeZMZP0x VaFpABV3WD1pHoK3VCTzhA H2WQYLEFTGOSuFA5LdYPDO IJTYMBKxSO9YGKyANZVMIT RLA17FZNWDEEBDN8NFO2zA PCsYCWSOTWZUS91JYJPIOO QJV1AKOWZXZCNVCWhROJLV Yb9IJAISQVXPCS8LCCkPJm MgWZoLUX87hLYdslFeWOfa EQH2RJt1LkPpuQUmp5OZHP tdZOUxN2NuN3I7BMdrCVN8 Ulc9ItXnkJFGVLCVZPvCDM OHKk3OJDINFZMZOF8KLyWc A8FZGD6KHn7ILZIBTJIGIY 5VYVsGGpWuX3GRFL2HFe3S CAKERVXRQI2FAgKbEVLRM9 SOPgCAL7yoDDMWHRWEQKNu TfAWLP2vFQJARU5ZHEWPGZ LVF06JKFPUXGLTQ6VFDJ9= [facility] Pathology report microscopic observation Narrative Other stain j3qvcBKjERGfdPPbSyXnNS NhAYDan2uhHBYgcMOmWnTp MzNcZnRuYmpcdWMxXGRlZm Ora8fxp661yACuz9wdXHGf XjA6jMAnKVAqwDHuZ593IE DkSRcux7qst3KvDEBwzWRy p6O9DQBJxnzyiXc7dLmrP8 3gl3H4FxvzO7jhDPGcXNEc Z6UkXI1mWIXdMjb1DZV5WS W3MLFzVYXzD2EmOL4hWOFb aBDiAWe4y4cqzXbjIEXvED U7j9hbLJsvrxZsLW9tsz0v uMr4p7sbqpXtNOQpFBSkvL EFAWLjW6HkhBbkCl6heEo6 uOfcDtsmEVH0Fac0RW3tfq 44mwr3lXkiCPHwiqhpRyW7 IQbvSGYktigaSEs0GGwzOW VjcHV8AMWusKNrL9IoENPt DV6emrv3ZXW2THflUAHrZk J5UUYnnDJnHLTgzXmvKJdj s463SRR7HhWaID9aH4Cgj4 M6jM7tgIChLADdtNAmBxZl RIOiqr9lyLMtUHbfh1WwNC J1jyE9hHKjsRFsOHNxKX95 Isghc0LsIubmAWF9QVJvrx Nzz7Wol9nyUkZmjqQqS9to E0UwXDKvNPUpUUPrAxVweq Raw8Nhp4AypKRaiKo9f6dx OKPsSMWvfPwkl1jyLPU6OE IoO6B3tBFct0fwDVwuDGFa oNS4xgO1JQEbgOEqA6KviV 4mKTKbJJ0vjkv9u3foFAL3 QKyxGQDwIhU5baF8YAWpgT ZpPZFpyWfcJYqwd461TEI2 DtAzYDCug8UdV3VvsClxL4 8ljZakD65xNBSrpVjsxY3i vRnucT3lIxZtZvBxEJpkgQ xwbGFpblxmMVxmczIwXGxh wrzhYQPvNHbaL9wlExPbLK JokElpSJgyw3HnSTWoWDTh IlHvUOocqv2tQ03nkOLpDM whyRenYLUiv98arVEneUSl Jv4cfONmGxlhMTG8 [facility] WOUND AEROBIC CULTUREon 10-24 Bacteria identified Aer cx Nom (Wound) Rare growth Staphylococcus aureus Abnormal [facility] Comment on above: This Staphylococcus aureus is Methicillin SUSCEPTIBLE by PBP2a testing. Beta-lactams like Cefazolin and Nafcillin are superior to Vancomycin for treating mSsa. Interpretation and review of laboratory results Abnormal [facility] Microscopic observation Gram stain Nom (Wound) No Organisms Seen [facility] Microscopic observation Gram stain Nom (Wound) Many WBC [facility] Microscopic observation Gram stain Nom (Wound) No Epithelial Cells Seen [facility] Basic Metabolic Panelon - Anion gap [Moles/Vol] 12 mmol/L 10 - 2 0 mmol/L [facility] Calcium [Mass/Vol] 8.8 mg/dL 8.4 - 10. 2 mg/dL [facility] Chloride [Moles/Vol] 103 mmol/L 98 - 10 8 mmol/L [facility] Creatinine [Mass/Vol] 0.92 mg/dL 0.50 - 1.30 [facility] GFR/1.73 sq M predicted among non-blacks MDRD (S/P/Bld) [Vol rate/Area] The eGFR should be used for monitoring renal function only and not for medication dosing. [facility] GFR/1.73 sq M.predicted CKD-EPI (S/P/Bld) [Vol rate/Area] 94 >=60 mL/min/1.73 m2 [facility] Glucose [Mass/Vol] 132 mg/dL High 65 - 99 mg/dL [facility] HCO3 [Moles/Vol] 25 mmol/L 21 - 32 mmol/L [facility] Interpretation and review of laboratory results Abnormal [facility] Potassium [Moles/Vol] 3.8 mmol/L 3.5 - 5.1 mmol/L [facility] Sodium [Moles/Vol] 136 mmol/L 135 - 145 mmol/L [facility] Urea nitrogen [Mass/Vol] 12 mg/dL 8 - 25 mg/dL [facility] Urea nitrogen/Creatinine [Mass ratio] 13.0 mg/mg [facility] CBCon 11-19-2020 Erythrocyte distribution width (RBC) [Entitic vol] 15.7 % High 11.6 - 14.8 % [facility] Hematocrit (Bld) [Volume fraction] 33.2 % Low 41 - 53 % [facility] Hemoglobin (Bld) [Mass/Vol] 10.2 g/dL Low 13.5 - 17.5 g/dL [facility] Interpretation and review of laboratory results Abnormal [facility] MCH (RBC) [Entitic mass] 25.5 pg Low 26 - 34 pg [facility] MCHC (RBC) [Mass/Vol] 30.7 g/dL Low 31 - 37 g/dL [facility] MCV (RBC) [Entitic vol] 83.0 fL 80 - 100 fL [facility] Nucleated RBC (Bld) [#/Vol] 0.00 10*3/uL [facility] Nucleated RBC/100 WBC (Bld) [Ratio] 0.0 % [facility] Platelet mean volume (Bld) [Entitic vol] 9.9 fL 9.4 - 12.4 fL [facility] Platelets (Bld) [#/Vol] 596 10*3/uL High [facility] RBC (Bld) [#/Vol] 4.00 10*6/uL Low [facility] WBC (Bld) [#/Vol] 10.04 10*3/uL [facility] Magnesium Levelon 11-19-2020 Interpretation and review of laboratory results Normal [facility] Magnesium [Mass/Vol] 1.7 mg/dL 1.6 - 2 .4 mg/dL [facility] POC Glucoseon 11-19-2020 Glucose [Mass/Vol] 174 mg/dL High 65 - 99 mg/dL [facility] Interpretation and review of laboratory results Abnormal [facility] Glucose [Mass/Vol] 180 mg/dL High 65 - 99 mg/dL [facility] Interpretation and review of laboratory results Abnormal [facility] Glucose [Mass/Vol] 166 mg/dL High 65 - 99 mg/dL [facility] Interpretation and review of laboratory results Abnormal [facility] Glucose [Mass/Vol] 127 mg/dL High 65 - 99 mg/dL [facility] Interpretation and review of laboratory results Abnormal [facility] Basic Metabolic Panelon 12-2 Anion gap [Moles/Vol] 10 mmol/L 10 - 2 0 mmol/L [facility] Calcium [Mass/Vol] 8.7 mg/dL 8.4 - 10. 2 mg/dL [facility] Chloride [Moles/Vol] 104 mmol/L 98 - 10 8 mmol/L [facility] Creatinine [Mass/Vol] 0.99 mg/dL 0.50 - 1.30 [facility] GFR/1.73 sq M predicted among non-blacks MDRD (S/P/Bld) [Vol rate/Area] The eGFR should be used for monitoring renal function only and not for medication dosing. [facility] GFR/1.73 sq M.predicted CKD-EPI (S/P/Bld) [Vol rate/Area] 86 >=60 mL/min/1.73 m2 [facility] Glucose [Mass/Vol] 136 mg/dL High 65 - 99 mg/dL [facility] HCO3 [Moles/Vol] 27 mmol/L 21 - 32 mmol/L [facility] Interpretation and review of laboratory results Abnormal [facility] Potassium [Moles/Vol] 3.8 mmol/L 3.5 - 5.1 mmol/L [facility] Sodium [Moles/Vol] 137 mmol/L 135 - 145 mmol/L [facility] Urea nitrogen [Mass/Vol] 12 mg/dL 8 - 25 mg/dL [facility] Urea nitrogen/Creatinine [Mass ratio] 12.1 mg/mg [facility] CBCon 11-18-2020 Erythrocyte distribution width (RBC) [Entitic vol] 15.9 % High 11.6 - 14.8 % [facility] Hematocrit (Bld) [Volume fraction] 36.5 % Low 41 - 53 % [facility] Hemoglobin (Bld) [Mass/Vol] 10.9 g/dL Low 13.5 - 17.5 g/dL [facility] Interpretation and review of laboratory results Abnormal [facility] MCH (RBC) [Entitic mass] 25.6 pg Low 26 - 34 pg [facility] MCHC (RBC) [Mass/Vol] 29.9 g/dL Low 31 - 37 g/dL [facility] MCV (RBC) [Entitic vol] 85.9 fL 80 - 100 fL [facility] Nucleated RBC (Bld) [#/Vol] 0.00 10*3/uL [facility] Nucleated RBC/100 WBC (Bld) [Ratio] 0.0 % [facility] Platelet mean volume (Bld) [Entitic vol] 10.2 fL 9.4 - 12.4 fL [facility] Platelets (Bld) [#/Vol] 581 10*3/uL High [facility] RBC (Bld) [#/Vol] 4.25 10*6/uL Low [facility] WBC (Bld) [#/Vol] 8.56 10*3/uL [facility] CRP, Inflammationon 11-18-20 20 CRP [Mass/Vol] 132.0 mg/L High <=10.0 [facility] Interpretation and review of laboratory results Abnormal [facility] Magnesium Levelon 11-18-2020 Interpretation and review of laboratory results Normal [facility] Magnesium [Mass/Vol] 1.8 mg/dL 1.6 - 2 .4 mg/dL [facility] POC Glucoseon 11-18-2020 Glucose [Mass/Vol] 175 mg/dL High 65 - 99 mg/dL [facility] Interpretation and review of laboratory results Abnormal [facility] Glucose [Mass/Vol] 111 mg/dL High 65 - 99 mg/dL [facility] Interpretation and review of laboratory results Abnormal [facility] Glucose [Mass/Vol] 133 mg/dL High 65 - 99 mg/dL [facility] Interpretation and review of laboratory results Abnormal [facility] Glucose [Mass/Vol] 154 mg/dL High 65 - 99 mg/dL [facility] Interpretation and review of laboratory results Abnormal [facility] Sedimentation Rateon 020 ESR (Bld) [Velocity] 110 mm/h High [facility] Interpretation and review of laboratory results Abnormal [facility] APTTon 11-17-2020 aPTT Coag (Bld) [Time] Therapeutic range for APTT's is 68 - 104 seconds [facility] aPTT Coag (Bld) [Time] 32 s [facility] Interpretation and review of laboratory results Normal [facility] Basic Metabolic Panelon 10-23 Anion gap [Moles/Vol] 9 mmol/L Low 10 - 2 0 mmol/L [facility] Calcium [Mass/Vol] 8.6 mg/dL 8.4 - 10. 2 mg/dL [facility] Chloride [Moles/Vol] 105 mmol/L 98 - 10 8 mmol/L [facility] Creatinine [Mass/Vol] 0.94 mg/dL 0.50 - 1.30 [facility] GFR/1.73 sq M predicted among non-blacks MDRD (S/P/Bld) [Vol rate/Area] The eGFR should be used for monitoring renal function only and not for medication dosing. [facility] GFR/1.73 sq M.predicted CKD-EPI (S/P/Bld) [Vol rate/Area] 92 >=60 mL/min/1.73 m2 [facility] Glucose [Mass/Vol] 86 mg/dL 65 - 99 mg/dL [facility] HCO3 [Moles/Vol] 26 mmol/L 21 - 32 mmol/L [facility] Interpretation and review of laboratory results Abnormal [facility] Potassium [Moles/Vol] 3.9 mmol/L 3.5 - 5.1 mmol/L [facility] Sodium [Moles/Vol] 136 mmol/L 135 - 145 mmol/L [facility] Urea nitrogen [Mass/Vol] 11 mg/dL 8 - 25 mg/dL [facility] Urea nitrogen/Creatinine [Mass ratio] 11.7 mg/mg [facility] CBC WITH AUTO DIFFERENTIALon 11-17-2020 Basophils (Bld) [#/Vol] 0.07 10*3/uL [facility] Basophils/100 WBC (Bld) 0.7 % [facility] Eosinophils (Bld) [#/Vol] 0.21 10*3/uL [facility] Eosinophils/100 WBC (Bld) 2.2 % [facility] Erythrocyte distribution width (RBC) [Entitic vol] 15.9 % High 11.6 - 14.8 % [facility] Hematocrit (Bld) [Volume fraction] 36.4 % Low 41 - 53 % [facility] Hemoglobin (Bld) [Mass/Vol] 11.0 g/dL Low 13.5 - 17.5 g/dL [facility] Immature granulocytes (Bld) [#/Vol] 0.11 10*3/uL [facility] Immature granulocytes/100 WBC (Bld) 1.20 % [facility] Comment on above: The IG parameter is the percentage of metamyelocytes, myelocytes and promyelocytes. An immature granulocyte count (IG) of 1% or more suggests the possibility of infection, an IG count of 3% is very likely related to an infection. Interpretation and review of laboratory results Abnormal [facility] Lymphocytes (Bld) [#/Vol] 2.31 10*3/uL [facility] Lymphocytes/100 WBC (Bld) 24.6 % [facility] MCH (RBC) [Entitic mass] 25.8 pg Low 26 - 34 pg [facility] MCHC (RBC) [Mass/Vol] 30.2 g/dL Low 31 - 37 g/dL [facility] MCV (RBC) [Entitic vol] 85.4 fL 80 - 100 fL [facility] Monocytes (Bld) [#/Vol] 0.92 10*3/uL High [facility] Monocytes/100 WBC (Bld) 9.8 % [facility] Neutrophils (Bld) [#/Vol] 5.78 10*3/uL [facility] Neutrophils/100 WBC (Bld) 61.5 % [facility] Nucleated RBC (Bld) [#/Vol] 0.00 10*3/uL [facility] Nucleated RBC/100 WBC (Bld) [Ratio] 0.0 % [facility] Platelet mean volume (Bld) [Entitic vol] 10.2 fL 9.4 - 12.4 fL [facility] Platelets (Bld) [#/Vol] 644 10*3/uL High [facility] RBC (Bld) [#/Vol] 4.26 10*6/uL Low [facility] ealth WBC (Bld) [#/Vol] 9.40 10*3/uL [facility] eah Magnesium Levelon 11-17-2020 Interpretation and review of laboratory results Normal [facility] Magnesium [Mass/Vol] 1.8 mg/dL 1.6 - 2 .4 mg/dL [facility] POC Glucoseon 11-17-2020 Glucose [Mass/Vol] 192 mg/dL High 65 - 99 mg/dL [facility] Interpretation and review of laboratory results Abnormal [facility] Glucose [Mass/Vol] 132 mg/dL High 65 - 99 mg/dL [facility] Interpretation and review of laboratory results Abnormal [facility] Glucose [Mass/Vol] 148 mg/dL High 65 - 99 mg/dL [facility] Interpretation and review of laboratory results Abnormal [facility] Glucose [Mass/Vol] 94 mg/dL 65 - 99 mg/dL [facility] Interpretation and review of laboratory results Normal [facility] Basic Metabolic Panelon 10-23 Anion gap [Moles/Vol] 8 mmol/L Low 10 - 2 0 mmol/L [facility] Calcium [Mass/Vol] 8.6 mg/dL 8.4 - 10. 2 mg/dL [facility] Chloride [Moles/Vol] 104 mmol/L 98 - 10 8 mmol/L [facility] Creatinine [Mass/Vol] 1.03 mg/dL 0.50 - 1.30 [facility] GFR/1.73 sq M predicted among non-blacks MDRD (S/P/Bld) [Vol rate/Area] The eGFR should be used for monitoring renal function only and not for medication dosing. [facility] GFR/1.73 sq M.predicted CKD-EPI (S/P/Bld) [Vol rate/Area] 82 >=60 mL/min/1.73 m2 [facility] Glucose [Mass/Vol] 103 mg/dL High 65 - 99 mg/dL [facility] HCO3 [Moles/Vol] 30 mmol/L 21 - 32 mmol/L [facility] Interpretation and review of laboratory results Abnormal [facility] Potassium [Moles/Vol] 3.7 mmol/L 3.5 - 5.1 mmol/L [facility] Sodium [Moles/Vol] 138 mmol/L 135 - 145 mmol/L [facility] Urea nitrogen [Mass/Vol] 10 mg/dL 8 - 25 mg/dL [facility] Urea nitrogen/Creatinine [Mass ratio] 9.7 mg/mg Low [facility] Bone Anaerobic Cultureon Bacteria identified Anaer cx Nom (Unsp spec) No Anaerobic Growth at 5 Days [facility] CBCon 11-16-2020 Erythrocyte distribution width (RBC) [Entitic vol] 15.9 % High 11.6 - 14.8 % [facility] Hematocrit (Bld) [Volume fraction] 35.7 % Low 41 - 53 % [facility] Hemoglobin (Bld) [Mass/Vol] 10.8 g/dL Low 13.5 - 17.5 g/dL [facility] Interpretation and review of laboratory results Abnormal [facility] MCH (RBC) [Entitic mass] 25.5 pg Low 26 - 34 pg [facility] MCHC (RBC) [Mass/Vol] 30.3 g/dL Low 31 - 37 g/dL [facility] MCV (RBC) [Entitic vol] 84.2 fL 80 - 100 fL [facility] Nucleated RBC (Bld) [#/Vol] 0.00 10*3/uL [facility] Nucleated RBC/100 WBC (Bld) [Ratio] 0.0 % [facility] Platelet mean volume (Bld) [Entitic vol] 10.2 fL 9.4 - 12.4 fL [facility] Platelets (Bld) [#/Vol] 658 10*3/uL High [facility] RBC (Bld) [#/Vol] 4.24 10*6/uL Low [facility] ealth WBC (Bld) [#/Vol] 9.26 10*3/uL [facility] Magnesium Levelon 11-16-2020 Interpretation and review of laboratory results Normal [facility] Magnesium [Mass/Vol] 1.8 mg/dL 1.6 - 2 .4 mg/dL [facility] POC Glucoseon 11-16-2020 Glucose [Mass/Vol] 157 mg/dL High 65 - 99 mg/dL [facility] Interpretation and review of laboratory results Abnormal [facility] Glucose [Mass/Vol] 105 mg/dL High 65 - 99 mg/dL [facility] Interpretation and review of laboratory results Abnormal [facility] Glucose [Mass/Vol] 147 mg/dL High 65 - 99 mg/dL [facility] Interpretation and review of laboratory results Abnormal [facility] Glucose [Mass/Vol] 100 mg/dL High 65 - 99 mg/dL [facility] Interpretation and review of laboratory results Abnormal [facility] Sedimentation Rateon 020 ESR (Bld) [Velocity] 113 mm/h [facility] Interpretation and review of laboratory results Abnormal [facility] Basic Metabolic Panelon 10-23 Anion gap [Moles/Vol] 9 mmol/L Low 10 - 2 0 mmol/L [facility] Calcium [Mass/Vol] 8.4 mg/dL 8.4 - 10. 2 mg/dL [facility] Chloride [Moles/Vol] 106 mmol/L 98 - 10 8 mmol/L [facility] Creatinine [Mass/Vol] 0.89 mg/dL 0.50 - 1.30 [facility] GFR/1.73 sq M predicted among non-blacks MDRD (S/P/Bld) [Vol rate/Area] The eGFR should be used for monitoring renal function only and not for medication dosing. [facility] GFR/1.73 sq M.predicted CKD-EPI (S/P/Bld) [Vol rate/Area] 97 >=60 mL/min/1.73 m2 [facility] Glucose [Mass/Vol] 139 mg/dL High 65 - 99 mg/dL [facility] HCO3 [Moles/Vol] 26 mmol/L 21 - 32 mmol/L [facility] Interpretation and review of laboratory results Abnormal [facility] Potassium [Moles/Vol] 3.7 mmol/L 3.5 - 5.1 mmol/L [facility] Sodium [Moles/Vol] 137 mmol/L 135 - 145 mmol/L [facility] Urea nitrogen [Mass/Vol] 14 mg/dL 8 - 25 mg/dL [facility] Urea nitrogen/Creatinine [Mass ratio] 15.7 mg/mg [facility] Bone Aerobic Cultureon 11-15 Bacteria identified Aer cx Nom (Bone) Rare growth Staphylococcus aureus Abnormal [facility] Comment on above: This Staphylococcus aureus is Methicillin SUSCEPTIBLE by PBP2a testing. Beta-lactams like Cefazolin and Nafcillin are superior to Vancomycin for treating mSsa. Interpretation and review of laboratory results Abnormal [facility] Microscopic observation Gram stain Nom (Unsp spec) No Organisms Seen [facility] Microscopic observation Gram stain Nom (Unsp spec) Rare WBC [facility] Microscopic observation Gram stain Nom (Unsp spec) No Epithelial Cells Seen [facility] CBCon 11-15-2020 Erythrocyte distribution width (RBC) [Entitic vol] 15.9 % High 11.6 - 14.8 % [facility] Hematocrit (Bld) [Volume fraction] 34.1 % Low 41 - 53 % [facility] Hemoglobin (Bld) [Mass/Vol] 10.5 g/dL Low 13.5 - 17.5 g/dL [facility] Interpretation and review of laboratory results Abnormal [facility] MCH (RBC) [Entitic mass] 25.9 pg Low 26 - 34 pg [facility] MCHC (RBC) [Mass/Vol] 30.8 g/dL Low 31 - 37 g/dL [facility] MCV (RBC) [Entitic vol] 84.2 fL 80 - 100 fL [facility] Nucleated RBC (Bld) [#/Vol] 0.00 10*3/uL [facility] Nucleated RBC/100 WBC (Bld) [Ratio] 0.0 % [facility] Platelet mean volume (Bld) [Entitic vol] 9.8 fL 9.4 - 12.4 fL [facility] Platelets (Bld) [#/Vol] 633 10*3/uL High [facility] RBC (Bld) [#/Vol] 4.05 10*6/uL Low [facility] WBC (Bld) [#/Vol] 8.97 10*3/uL [facility] CT ABDOMEN PELVIS WITHOUT CO NTRASTon 11-15-2020 CT ABDOMEN PELVIS WITHOUT CONTRAST EXAMINATION: CT ABDOMEN PELVIS WITHOUT CONTRAST - 11/15/2020 COMPARISON: CT angiogram chest from [place] dated 11/05/2020. No prior CT imaging of [...] perinephric fluid collections or ascites. There is icyxchya-ea-bpmnq amount of retained stool in the proximal colon and fpque-pq-gfgncsap amount of retained stool in the distal [...] retained stool in the proximal colon and tnzzj-iq-aolrnjlf amount of retained stool in the distal colon, which could be related to a mild colonic ileus. No evidence of a bowel obstruction. 3. Mild pelvic and inguinal lymphadenopathy that may be reactive. 4. Questionable sludge or gallstones in the gallbladder. No evidence of cholecystitis. 5. Trace pleural effusions and mild atelectasis in both lung bases. [employer] Workstation ID: [id number] Dictated by: AMNA PEÑA on WedNov 15, 2020 2:11:25 PM EST Transcribed by: LUTHER TREJO on WedNov 15, 2020 2:15:19 PM EST Finalized by: AMNA PEÑA on WedNov 15, 2020 2:30:12 PM EST Normal [facility] Comment on above: Order Comment: Injur y/Trauma or Illness?:Illness/Other How long have you had these symptoms (acute/chronic)?:Acute Reason for exam?:non healing wound on top of foot History of cancer?: Surgeries, chemotherapy, or radiation?: Type of Exam?:Initial Additional signs and symptoms?:pain CT Abdomen Pelvis Without Co ntraston 11-15-2020 Interface, Rad In Fu ji [facility] - 11/15/2020 2:32 PM EST EXAMINATION: CT ABDOMEN PELVIS WITHOUT CONTRAST - 11/15/2020 COMPARISON: CT angiogram chest from [place] dated 11/05/2020. No prior CT imaging of [...] perinephric fluid collections or ascites. There is fonhbpyl-my-lfwsh amount of retained stool in the proximal colon and tfbxp-ph-biutdsvw amount of retained stool in the distal [...] retained stool in the proximal colon and guzlz-kl-xyyphhyg amount of retained stool in the distal colon, which could be related to a mild colonic ileus. No evidence of a bowel obstruction. 3. Mild pelvic and inguinal lymphadenopathy that may be reactive. 4. Questionable sludge or gallstones in the gallbladder. No evidence of cholecystitis. 5. Trace pleural effusions and mild atelectasis in both lung bases. [employer] Workstation ID: [id number] [facility] EXAMINATION: CT ABDOMEN PELVIS WITHOUT CONTRAST - 11/15/2020 COMPARISON: CT angiogram chest from [place] dated 11/05/2020. No prior CT imaging of [...] perinephric fluid collections or ascites. There is xrhxpvsc-cm-mafbl amount of retained stool in the proximal colon and lyfdn-od-qmpfsore amount of retained stool in the distal [...] in the spine. No suspicious osseous lesions. [facility] 1. Single bilateral punctate nonobstructing renal calculi. No evidence of an obstructive uropathy. 2. Moderate-large amount of retained stool in the proximal colon and pfcmw-pa-oeeahofv amount of retained stool in the distal colon, which could be related to a mild colonic ileus. No evidence of a bowel obstruction. 3. Mild pelvic and inguinal lymphadenopathy that may be reactive. 4. Questionable sludge or gallstones in the gallbladder. No evidence of cholecystitis. 5. Trace pleural effusions and mild atelectasis in both lung bases. [employer] Workstation ID: [id number] [facility] Magnesium Levelon 11-15-2020 Interpretation and review of laboratory results Normal [facility] Magnesium [Mass/Vol] 1.9 mg/dL 1.6 - 2 .4 mg/dL [facility] POC Glucoseon 11-15-2020 Glucose [Mass/Vol] 171 mg/dL High 65 - 99 mg/dL [facility] Interpretation and review of laboratory results Abnormal [facility] Glucose [Mass/Vol] 122 mg/dL High 65 - 99 mg/dL [facility] Interpretation and review of laboratory results Abnormal [facility] Glucose [Mass/Vol] 129 mg/dL High 65 - 99 mg/dL [facility] Interpretation and review of laboratory results Abnormal [facility] Glucose [Mass/Vol] 142 mg/dL High 65 - 99 mg/dL [facility] Interpretation and review of laboratory results Abnormal [facility] XR FOOT LEFT 3+ VIEWS (STAND [...] WedNov 15, 2020 7:35:52 PM EST Normal [facility] Comment on above: Order Comment: Injur y/Trauma or Illness?:Illness/Other How long have you had these symptoms (acute/chronic)?:Chronic Reason for exam?:NON HEALING WOND ANTERIOR FOOT History of cancer?: Surgeries, chemotherapy, or radiation?: Type of Exam?:Unknown Additional signs and symptoms?:DIABETES Large ulceration overlying the dorsum of the foot. Degenerative changes. No definite bony erosion or fracture. Workstation ID: [id number] [facility] EXAMINATION: XR FOOT LEFT 3+ VIEWS [...] fracture. There is a plantar calcaneal spur. [facility] Interface, Rad In Fu ji Speechq [...] bony erosion or fracture. Workstation ID: [id number] [facility] Basic Metabolic Panelon 10-23 Anion gap [Moles/Vol] 8 mmol/L Low 10 - 2 0 mmol/L [facility] Calcium [Mass/Vol] 7.9 mg/dL Low 8.4 - 10. 2 mg/dL [facility] Chloride [Moles/Vol] 105 mmol/L 98 - 10 8 mmol/L [facility] Creatinine [Mass/Vol] 0.97 mg/dL 0.50 - 1.30 [facility] GFR/1.73 sq M predicted among non-blacks MDRD (S/P/Bld) [Vol rate/Area] The eGFR should be used for monitoring renal function only and not for medication dosing. [facility] GFR/1.73 sq M.predicted CKD-EPI (S/P/Bld) [Vol rate/Area] 88 >=60 mL/min/1.73 m2 [facility] Glucose [Mass/Vol] 153 mg/dL High 65 - 99 mg/dL [facility] HCO3 [Moles/Vol] 26 mmol/L 21 - 32 mmol/L [facility] Interpretation and review of laboratory results Abnormal [facility] Potassium [Moles/Vol] 4.0 mmol/L 3.5 - 5.1 mmol/L [facility] Sodium [Moles/Vol] 135 mmol/L 135 - 145 mmol/L [facility] Urea nitrogen [Mass/Vol] 14 mg/dL 8 - 25 mg/dL [facility] Urea nitrogen/Creatinine [Mass ratio] 14.4 mg/mg [facility] CBCon 11-14-2020 Erythrocyte distribution width (RBC) [Entitic vol] 16.1 % High 11.6 - 14.8 % [facility] Hematocrit (Bld) [Volume fraction] 33.3 % Low 41 - 53 % [facility] Hemoglobin (Bld) [Mass/Vol] 10.0 g/dL Low 13.5 - 17.5 g/dL [facility] Interpretation and review of laboratory results Abnormal [facility] MCH (RBC) [Entitic mass] 25.3 pg Low 26 - 34 pg [facility] MCHC (RBC) [Mass/Vol] 30.0 g/dL Low 31 - 37 g/dL [facility] MCV (RBC) [Entitic vol] 84.1 fL 80 - 100 fL [facility] Nucleated RBC (Bld) [#/Vol] 0.00 10*3/uL [facility] Nucleated RBC/100 WBC (Bld) [Ratio] 0.0 % [facility] Platelet mean volume (Bld) [Entitic vol] 10.4 fL 9.4 - 12.4 fL [facility] Platelets (Bld) [#/Vol] 583 10*3/uL High [facility] RBC (Bld) [#/Vol] 3.96 10*6/uL Low [facility] ealth WBC (Bld) [#/Vol] 10.09 10*3/uL [facility] Magnesium Levelon 11-14-2020 Interpretation and review of laboratory results Normal [facility] Magnesium [Mass/Vol] 1.9 mg/dL 1.6 - 2 .4 mg/dL [facility] POC Glucoseon 11-14-2020 Glucose [Mass/Vol] 160 mg/dL High 65 - 99 mg/dL [facility] Interpretation and review of laboratory results Abnormal [facility] Glucose [Mass/Vol] 151 mg/dL High 65 - 99 mg/dL [facility] Interpretation and review of laboratory results Abnormal [facility] Glucose [Mass/Vol] 142 mg/dL High 65 - 99 mg/dL [facility] Interpretation and review of laboratory results Abnormal [facility] Glucose [Mass/Vol] 138 mg/dL High 65 - 99 mg/dL [facility] Interpretation and review of laboratory results Abnormal [facility] Basic Metabolic Panelon 10-23 Anion gap [Moles/Vol] 8 mmol/L Low 10 - 2 0 mmol/L [facility] Calcium [Mass/Vol] 7.8 mg/dL Low 8.4 - 10. 2 mg/dL [facility] Chloride [Moles/Vol] 105 mmol/L 98 - 10 8 mmol/L [facility] Creatinine [Mass/Vol] 0.85 mg/dL 0.50 - 1.30 [facility] GFR/1.73 sq M predicted among non-blacks MDRD (S/P/Bld) [Vol rate/Area] The eGFR should be used for monitoring renal function only and not for medication dosing. [facility] GFR/1.73 sq M.predicted CKD-EPI (S/P/Bld) [Vol rate/Area] 99 >=60 mL/min/1.73 m2 [facility] Glucose [Mass/Vol] 176 mg/dL High 65 - 99 mg/dL [facility] HCO3 [Moles/Vol] 26 mmol/L 21 - 32 mmol/L [facility] Interpretation and review of laboratory results Abnormal [facility] Potassium [Moles/Vol] 4.0 mmol/L 3.5 - 5.1 mmol/L [facility] Sodium [Moles/Vol] 135 mmol/L 135 - 145 mmol/L [facility] Urea nitrogen [Mass/Vol] 13 mg/dL 8 - 25 mg/dL [facility] Urea nitrogen/Creatinine [Mass ratio] 15.3 mg/mg [facility] CBCon 11-13-2020 Erythrocyte distribution width (RBC) [Entitic vol] 16.0 % High 11.6 - 14.8 % [facility] Hematocrit (Bld) [Volume fraction] 32.7 % Low 41 - 53 % [facility] Hemoglobin (Bld) [Mass/Vol] 10.1 g/dL Low 13.5 - 17.5 g/dL [facility] Interpretation and review of laboratory results Abnormal [facility] MCH (RBC) [Entitic mass] 25.6 pg Low 26 - 34 pg [facility] MCHC (RBC) [Mass/Vol] 30.9 g/dL Low 31 - 37 g/dL [facility] MCV (RBC) [Entitic vol] 82.8 fL 80 - 100 fL [facility] Nucleated RBC (Bld) [#/Vol] 0.00 10*3/uL [facility] Nucleated RBC/100 WBC (Bld) [Ratio] 0.0 % [facility] Platelet mean volume (Bld) [Entitic vol] 10.4 fL 9.4 - 12.4 fL [facility] Platelets (Bld) [#/Vol] 545 10*3/uL High [facility] RBC (Bld) [#/Vol] 3.95 10*6/uL Low [facility] ealth WBC (Bld) [#/Vol] 10.51 10*3/uL [facility] Magnesium Levelon 11-13-2020 Interpretation and review of laboratory results Normal [facility] Magnesium [Mass/Vol] 2.0 mg/dL 1.6 - 2 .4 mg/dL [facility] NM Gastric Emptyingon 2019 Delayed gastric emptying. Workstation ID: [id number] [facility] Interface, Rad In Fu ji [facility] - 11/13/2020 1:36 PM EST EXAMINATION: [place] GASTRIC EMPTYING HISTORY: Abdominal discomfort, nausea, vomiting [...] IMPRESSION: Delayed gastric emptying. Workstation ID: [id number] [facility] EXAMINATION: [place] GASTRIC EMPTYING HISTORY: Abdominal discomfort, nausea, vomiting [...] 4 HOURS: 17% (normal range = 0-10%). [facility] POC Glucoseon 11-13-2020 Glucose [Mass/Vol] 189 mg/dL High 65 - 99 mg/dL [facility] Interpretation and review of laboratory results Abnormal [facility] Glucose [Mass/Vol] 186 mg/dL High 65 - 99 mg/dL [facility] Interpretation and review of laboratory results Abnormal [facility] Glucose [Mass/Vol] 221 mg/dL High 65 - 99 mg/dL [facility] Interpretation and review of laboratory results Abnormal [facility] Glucose [Mass/Vol] 162 mg/dL High 65 - 99 mg/dL [facility] Interpretation and review of laboratory results Abnormal [facility] TISSUE EXAMon 11-13-2020 Case Report Surgical Pathology Report Case: [id number] Authorizing Provider: Leanne Cherry DPM Collected: 11/11/2020 04:44 PM Ordering Location: [facility] Received: 11/12/2020 09:31 AM Pathologist: Joni Perez DO Specimen: Foot, Left [facility] Pathology report final diagnosis Narrative g5rigXCyJOXruXL6LfNmXT Oaq1fwy1QfeUZaaFCdAVws zLYsywCscl39aMP3bZ28GS 9rIJHlFlM0YZPcviK0Fmr9 VJJxBITroQIjI243o9kjp6 yjprGolCH6bJfgBXZtXNJa YWluXGJcZnMyMCBBLiAgQm 9uZSBmcmFnbWVudCwgTGVm rBYZt753TBNgzCPvl0dvvc uyrGWjWTSjocDpwIv8DyCc bGluNzIwXGIwIEFjdXRlIG 7ieHMgfRyooEw3kKDzRJRh clxwYXJkXHBhcn0= [facility] Pathology report gross observation Narrative p7lnuEMkVUXepOJ4HvCxAR Bsh4djk0OmkSUayPZjSImq fOMlygUehk23bGN9gZ17KB 9pLTMgZoP2VSRcihO8Lvv1 WNToDLOnrFQwZ004b4puv0 jyrrEydJY1kKofCFCnYTZk CDddOAGgIhEcRqFiNTw0OK OjxW9tRc7maLTuxM8iDTQr q4alkgS9YZZsZjPiGx4axL cbOXFlrHZPf86aZgfzKLQb n7TnG3J4KSEaXMjnl7wmDT RbNInxu5AkLGmJZEKRFB3R IZ3njQA6BWwYYMHGM5lYuT R2NSTsiOR1RQ85CUPeRVCl iGRkAFtmI008tBZdMWddYv vheXW7BVhcJxtmiI9ewIQA NBVCAczJSfwadxYfVW0WTL UTSS7FoCP3RFIdaDH9BB42 OBMfWTHvbWGeVEnyH321RZ BsYWluXGZzMjAgIGZyYWdt AU32HVZfLP7qNRXoauWjeB Xij3HgqD4mKYZtRAZ9BDSd RlA6CALbBaXwmClzld14EQ F0i7qoxHDgSZkpGkrtsZSi bjA8YBcLJGYVUGhGAwHsOS 3cMDeHB6YDBMyZDamcTXF0 R7qtoYG1b7xtyZVcs7g3MD mmTRF2nW17AJBtFHufn6dw DZPrZWsav1CxSBqRRBXSOE 4KZU4obWX9VJtNKSHDGSna ASV6F4mwbXH5g4ddrMHgu8 d7KEfwUER9mNqvaFWwlney tyIpKWLxJ5GjsVj8oMYsKZ ZvciBkZWNhbGNpZmljYXRp k18hZBHIy0MjmNm8XII9Px 1hlZOvRWYfmzXiTEOqu6Fa dHRlKHMpLlxwYXJccGFyZF drKLXlB2StjPKhNTlmk3Nj IIW3CM2upxX1vV4sQCNlwz Ekrt8zXRKihSqvKFPis7Ln ZEqbZJssr6JxhZTvYK7yJc Z7ZNrjWCFvtlCgHHU8PI64 PVOIJT2hUpabwBRyJF3UCY U9SDDfDWliRFUzlOEoAEWd R18YGnEKXMKLZ33IGSPTGZ ZIT0TLS9xDXES0RWFjkET3 UV9cZOE9M8foNUErQ65XDb JYODEMU37DKPAZJFNKY6ZX NNWDCMsZI7CURK4BPEBBEM KAJM7SXHzODrQYVVnKT9RH IO4WRQZJKQSONN5CNhAaWQ jRD3HVZ6iDPVNwRGAMYDSU AVCiIlMGWU1wKId9WODduV 6kNDRkFIE6CcJbJVX9Bxsf AF7fIObDPDRsxoKqW3rzRF smiAX0WsPxKEC0UlowTC7n VXeDY3FVF4zFFVBxUXAHAR CIRLLhHY7JSZfLRM6PQMBf AVBNFTLPLSHeRoTKSG4sRK pZBH4NFXUsUXXSFPXVMJDm KW1TFTUBSN7BBFDGVEWJB7 4LUEHGSOJMK5ETF6sILKTA CWBQKfSEXdWELW7SJELWBM TCCB1RBjF2 [facility] Pathology report microscopic observation Narrative Other stain m9nuwBWsCLEpoQGrYcJzLY FsQKWej8hiLWFpvTHnUiDe MzNcZnRuYmpcdWMxXGRlZm Ncr9uef806yAEcv4zvKBLr VgQ9bPWsHHHazUKsP588WW GrHWqkm3wpe8NfPSQhoPFx r7Y7WODOqepbuMd1dInuY5 1bd4N8FzvkF5xjGMRcLXWl N1EmLA9gCUZyTyw2QAH9VP D6XVFtRWVaP8KzCU9wMBYw yNBhCAw3z8ahzBhxLGDkXL C0n0fyBYimxiHwOK2gsp8q xHv0p4uovpPbPIOhEQQssF VVXYSnZ5FukGjnFw3jxZi8 nFrgYsykEDZ2Atd2GG6rom 34pdi2qAodIZGnqaenBjM4 JIboDQBhmxbiHIk1RFjcER FmmTE5NACrsMVwY7OfKQHg WA1cibv5BTO7UZhzXBLmFd F8HXAvrELwRYUphZznNWvm n837ILM7DuToMB3qW6Sqe2 Y0uS6cyMMbIUMjrAQfRnZv BOJhrr8ecTMxNYkyp2DvTW N4kyD4uJRlzFWsSJWdEQ79 Cwlgc0NxBfafUMM0NSBdzh Dtj9Mua2xhCzZzduWiI2ub C6FnVLJcDDXfYZJuUbHffi Vkp5Aav1CrhWSonNd4z9ir ZCLeJVZbxVaks8rdGKS3KP UfZ4U6vGEwo7leXVqiKVIv rEC4ehL6QEHwpBMaA4VdqM 9nNOCbWQ2twjv0f2ifDNU5 UVlvARYqEfI5jxT8AXLfqS YtSIWfmMrvGBqpp919MBL3 UfPiNTTwv3YdG5ZemFvvO7 7nkGgeO69lKFHnmEvfpZ5w zZougB5gZgAlUxBoLHsotZ xwbGFpblxmMVxmczIwXGxh pldmHECvAGqlV2qbKsEpTO TkoGayHNoba9EsNYPgZMNr YiEdHHyttn8cV51rxEZfJY jkdQkkLKEro30sbHAfbBTa Nr4muJSbRpzdMDU6 [facility] US DOPPLER SEGMENTAL ARTERIA L LEGS BILATERALon 11-13-2020 US DOPPLER SEGMENTAL ARTERIAL LEGS BILATERAL Patient Info Name: MORE KINGSLEY Age: 55 years : 1965 Gender: Male Exam Date: 11/13/2020 8:13 AM Patient Status: Inpatient [employer] Developer: Rafat Tony RVT Indications I73.9 - Peripheral vascular disease, unspecified Procedure Description 64924 Complete bilateral noninvasive physiologic studies of upper [...] Gutiérrez DO on 11/13/2020 03:26 PM Normal [facility] Interface, Rad In [facility] [employer] - 11/13/2020 3:27 PM EST Patient Info Name: MORE KINGSLEY Age: 55 years : 1965 Gender: Male Exam Date: 11/13/2020 8:13 AM Patient Status: Inpatient [employer] Developer: Rafat Tony RVT Indications I73.9 - Peripheral vascular disease, unspecified Procedure Description 78695 Complete bilateral noninvasive physiologic studies of upper [...] ABILIO Gutiérrez DO on 11/13/2020 03:26 PM [facility] Patient Info Name: MORE KINGSLEY Age: 55 years : 1965 Gender: Male Exam Date: 11/13/2020 8:13 AM Patient Status: Inpatient [employer] Developer: Rafat Tony RVT Indications I73.9 - Peripheral vascular disease, unspecified Procedure Description 10002 Complete bilateral noninvasive physiologic studies of upper [...] ABILIO Gutiérrez DO on 11/13/2020 03:26 PM [facility] Basic Metabolic Panelon 12-2 Anion gap [Moles/Vol] 10 mmol/L 10 - 2 0 mmol/L [facility] Calcium [Mass/Vol] 8.0 mg/dL Low 8.4 - 10. 2 mg/dL [facility] Chloride [Moles/Vol] 104 mmol/L 98 - 10 8 mmol/L [facility] Creatinine [Mass/Vol] 0.84 mg/dL 0.50 - 1.30 [facility] GFR/1.73 sq M predicted among non-blacks MDRD (S/P/Bld) [Vol rate/Area] The eGFR should be used for monitoring renal function only and not for medication dosing. [facility] GFR/1.73 sq M.predicted CKD-EPI (S/P/Bld) [Vol rate/Area] 99 >=60 mL/min/1.73 m2 [facility] Glucose [Mass/Vol] 86 mg/dL 65 - 99 mg/dL [facility] HCO3 [Moles/Vol] 25 mmol/L 21 - 32 mmol/L [facility] Interpretation and review of laboratory results Abnormal [facility] Potassium [Moles/Vol] 4.1 mmol/L 3.5 - 5.1 mmol/L [facility] Sodium [Moles/Vol] 135 mmol/L 135 - 145 mmol/L [facility] Urea nitrogen [Mass/Vol] 10 mg/dL 8 - 25 mg/dL [facility] Urea nitrogen/Creatinine [Mass ratio] 11.9 mg/mg [facility] CBCon 11-12-2020 Erythrocyte distribution width (RBC) [Entitic vol] 16.4 % High 11.6 - 14.8 % [facility] Hematocrit (Bld) [Volume fraction] 32.7 % Low 41 - 53 % [facility] Hemoglobin (Bld) [Mass/Vol] 10.1 g/dL Low 13.5 - 17.5 g/dL [facility] Interpretation and review of laboratory results Abnormal [facility] MCH (RBC) [Entitic mass] 25.7 pg Low 26 - 34 pg [facility] MCHC (RBC) [Mass/Vol] 30.9 g/dL Low 31 - 37 g/dL [facility] MCV (RBC) [Entitic vol] 83.2 fL 80 - 100 fL [facility] Nucleated RBC (Bld) [#/Vol] 0.00 10*3/uL [facility] Nucleated RBC/100 WBC (Bld) [Ratio] 0.0 % [facility] Platelet mean volume (Bld) [Entitic vol] 10.4 fL 9.4 - 12.4 fL [facility] Platelets (Bld) [#/Vol] 497 10*3/uL High [facility] RBC (Bld) [#/Vol] 3.93 10*6/uL Low [facility] ealth WBC (Bld) [#/Vol] 13.36 10*3/uL High [facility] COVID-19/INFLUENZA A,B MOLEC ULARon 11-12-2020 COVID-19/INFLUENZA A,B MOLECULAR SARS-COV-2 (JESSIKA): Not Detected INFLUENZA A (JESSIKA): Not Detected INFLUENZA B (JESSIKA): Not Detected Normal Not Detected [facility] Comment on above: Order Comment: This [...] at the following links: For Healthcare Providers: https://www.fda.gov/media/918515/download For Patients: https://www.fda.gov/media/391120/download Performed By: #### L [id number] #### [facility] [address] [address] Warren Barnett M.D. [id number] COVID-19/Influenza A,B Molec aro 11-12-2020 Influenza A Not Detected Not Detected [facility] Influenza B Not Detected Not Detected [facility] Interpretation and review of laboratory results Normal [facility] SARS-CoV-2 Not Detected Not Detected [facility] This test was performed under the [...] the following links: For Healthcare Providers: https://www.fda.gov/me yoon/359591/download For Patients: https://www.fda.gov/ar yoon/415389/download [facility] Magnesium Levelon 11-12-2020 Interpretation and review of laboratory results Normal [facility] Magnesium [Mass/Vol] 1.8 mg/dL 1.6 - 2 .4 mg/dL [facility] NM GASTRIC EMPTYINGon 2019 [place] GASTRIC EMPTYING EXAMINATION: [place] GASTRIC EMPTYING HISTORY: Abdominal discomfort, nausea, vomiting [...] WedNov 13, 2020 1:34:26 PM EST Normal [facility] Comment on above: Order Comment: Injur y/Trauma or Illness?:Illness/Other How long have you had these symptoms (acute/chronic)?:Chronic a few years now Reason for exam?:Recurrent nausea and vomiting and abdominal discomfort uncontrolled diabetes Type of Exam?:Ongoing Additional signs and symptoms?:nausea and vomiting almost daily for a few years now, POC Glucoseon 11-12-2020 Glucose [Mass/Vol] 159 mg/dL High 65 - 99 mg/dL [facility] Interpretation and review of laboratory results Abnormal [facility] Glucose [Mass/Vol] 161 mg/dL High 65 - 99 mg/dL [facility] Interpretation and review of laboratory results Abnormal [facility] Glucose [Mass/Vol] 153 mg/dL High 65 - 99 mg/dL [facility] Interpretation and review of laboratory results Abnormal [facility] Glucose [Mass/Vol] 71 mg/dL 65 - 99 mg/dL [facility] Interpretation and review of laboratory results Normal [facility] Basic Metabolic Panelon 10-23 Anion gap [Moles/Vol] 9 mmol/L Low 10 - 2 0 mmol/L [facility] Calcium [Mass/Vol] 8.1 mg/dL Low 8.4 - 10. 2 mg/dL [facility] Chloride [Moles/Vol] 106 mmol/L 98 - 10 8 mmol/L [facility] Creatinine [Mass/Vol] 1.00 mg/dL 0.50 - 1.30 [facility] GFR/1.73 sq M predicted among non-blacks MDRD (S/P/Bld) [Vol rate/Area] The eGFR should be used for monitoring renal function only and not for medication dosing. [facility] GFR/1.73 sq M.predicted CKD-EPI (S/P/Bld) [Vol rate/Area] 85 >=60 mL/min/1.73 m2 [facility] Glucose [Mass/Vol] 108 mg/dL High 65 - 99 mg/dL [facility] HCO3 [Moles/Vol] 26 mmol/L 21 - 32 mmol/L [facility] Interpretation and review of laboratory results Abnormal [facility] Potassium [Moles/Vol] 4.0 mmol/L 3.5 - 5.1 mmol/L [facility] Sodium [Moles/Vol] 137 mmol/L 135 - 145 mmol/L [facility] Urea nitrogen [Mass/Vol] 8 mg/dL 8 - 25 mg/dL [facility] Urea nitrogen/Creatinine [Mass ratio] 8.0 mg/mg Low [facility] CBCon 11-11-2020 Erythrocyte distribution width (RBC) [Entitic vol] 16.2 % High 11.6 - 14.8 % [facility] Hematocrit (Bld) [Volume fraction] 36.2 % Low 41 - 53 % [facility] Hemoglobin (Bld) [Mass/Vol] 11.2 g/dL Low 13.5 - 17.5 g/dL [facility] Interpretation and review of laboratory results Abnormal [facility] MCH (RBC) [Entitic mass] 25.7 pg Low 26 - 34 pg [facility] MCHC (RBC) [Mass/Vol] 30.9 g/dL Low 31 - 37 g/dL [facility] MCV (RBC) [Entitic vol] 83.0 fL 80 - 100 fL [facility] Nucleated RBC (Bld) [#/Vol] 0.00 10*3/uL [facility] Nucleated RBC/100 WBC (Bld) [Ratio] 0.0 % [facility] Platelet mean volume (Bld) [Entitic vol] 10.6 fL 9.4 - 12.4 fL [facility] Platelets (Bld) [#/Vol] 511 10*3/uL High [facility] RBC (Bld) [#/Vol] 4.36 10*6/uL Low [facility] ealth WBC (Bld) [#/Vol] 11.96 10*3/uL High [facility] Magnesium Levelon 11-11-2020 Interpretation and review of laboratory results Normal [facility] Magnesium [Mass/Vol] 1.7 mg/dL 1.6 - 2 .4 mg/dL [facility] Interpretation and review of laboratory results Normal [facility] Magnesium [Mass/Vol] 1.8 mg/dL 1.6 - 2 .4 mg/dL [facility] POC Glucoseon 11-11-2020 Glucose [Mass/Vol] 104 mg/dL High 65 - 99 mg/dL [facility] Interpretation and review of laboratory results Abnormal [facility] Glucose [Mass/Vol] 86 mg/dL 65 - 99 mg/dL [facility] Interpretation and review of laboratory results Normal [facility] Glucose [Mass/Vol] 106 mg/dL High 65 - 99 mg/dL [facility] Interpretation and review of laboratory results Abnormal [facility] Glucose [Mass/Vol] 115 mg/dL High 65 - 99 mg/dL [facility] Interpretation and review of laboratory results Abnormal [facility] Basic Metabolic Panelon 10-23 Anion gap [Moles/Vol] 9 mmol/L Low 10 - 2 0 mmol/L [facility] Calcium [Mass/Vol] 7.9 mg/dL Low 8.4 - 10. 2 mg/dL [facility] Chloride [Moles/Vol] 104 mmol/L 98 - 10 8 mmol/L [facility] Creatinine [Mass/Vol] 0.94 mg/dL 0.50 - 1.30 [facility] GFR/1.73 sq M predicted among non-blacks MDRD (S/P/Bld) [Vol rate/Area] The eGFR should be used for monitoring renal function only and not for medication dosing. [facility] GFR/1.73 sq M.predicted CKD-EPI (S/P/Bld) [Vol rate/Area] 92 >=60 mL/min/1.73 m2 [facility] Glucose [Mass/Vol] 151 mg/dL High 65 - 99 mg/dL [facility] HCO3 [Moles/Vol] 26 mmol/L 21 - 32 mmol/L [facility] Interpretation and review of laboratory results Abnormal [facility] Potassium [Moles/Vol] 3.4 mmol/L Low 3.5 - 5.1 mmol/L [facility] Sodium [Moles/Vol] 136 mmol/L 135 - 145 mmol/L [facility] Urea nitrogen [Mass/Vol] 8 mg/dL 8 - 25 mg/dL [facility] Urea nitrogen/Creatinine [Mass ratio] 8.5 mg/mg Low [facility] CBCon 2020 Erythrocyte distribution width (RBC) [Entitic vol] 16.4 % High 11.6 - 14.8 % [facility] Hematocrit (Bld) [Volume fraction] 36.2 % Low 41 - 53 % [facility] Hemoglobin (Bld) [Mass/Vol] 11.4 g/dL Low 13.5 - 17.5 g/dL [facility] Interpretation and review of laboratory results Abnormal [facility] MCH (RBC) [Entitic mass] 26.5 pg 26 - 34 pg [facility] MCHC (RBC) [Mass/Vol] 31.5 g/dL 31 - 37 g/dL [facility] MCV (RBC) [Entitic vol] 84.2 fL 80 - 100 fL [facility] Nucleated RBC (Bld) [#/Vol] 0.00 10*3/uL [facility] Nucleated RBC/100 WBC (Bld) [Ratio] 0.0 % [facility] Platelet mean volume (Bld) [Entitic vol] 11.0 fL 9.4 - 12.4 fL [facility] Platelets (Bld) [#/Vol] 411 10*3/uL High [facility] RBC (Bld) [#/Vol] 4.30 10*6/uL Low [facility] ealth WBC (Bld) [#/Vol] 12.21 10*3/uL [facility] Imm/Pathon 2020 Bacteria identified Cx Nom (Bld) No Growth After 5 Days [facility] h Magnesium Levelon 2020 Interpretation and review of laboratory results Normal [facility] Magnesium [Mass/Vol] 1.9 mg/dL 1.6 - 2 .4 mg/dL [facility] POC Glucoseon 2020 Glucose [Mass/Vol] 136 mg/dL High 65 - 99 mg/dL [facility] Interpretation and review of laboratory results Abnormal [facility] Glucose [Mass/Vol] 137 mg/dL High 65 - 99 mg/dL [facility] Interpretation and review of laboratory results Abnormal [facility] Glucose [Mass/Vol] 151 mg/dL High 65 - 99 mg/dL [facility] Interpretation and review of laboratory results Abnormal [facility] Glucose [Mass/Vol] 167 mg/dL High 65 - 99 mg/dL [facility] Interpretation and review of laboratory results Abnormal [facility] Glucose [Mass/Vol] 154 mg/dL High 65 - 99 mg/dL [facility] Interpretation and review of laboratory results Abnormal [facility] Glucose [Mass/Vol] 58 mg/dL Low 65 - 99 mg/dL [facility] Interpretation and review of laboratory results Abnormal [facility] Basic Metabolic Panelon 10-22 Anion gap [Moles/Vol] 11 mmol/L 10 - 2 0 mmol/L [facility] Calcium [Mass/Vol] 7.6 mg/dL Low 8.4 - 10. 2 mg/dL [facility] Chloride [Moles/Vol] 103 mmol/L 98 - 10 8 mmol/L [facility] Creatinine [Mass/Vol] 0.84 mg/dL 0.50 - 1.30 [facility] GFR/1.73 sq M predicted among non-blacks MDRD (S/P/Bld) [Vol rate/Area] The eGFR should be used for monitoring renal function only and not for medication dosing. [facility] GFR/1.73 sq M.predicted CKD-EPI (S/P/Bld) [Vol rate/Area] 100 >=60 mL/min/1.73 m2 [facility] Glucose [Mass/Vol] 85 mg/dL 65 - 99 mg/dL [facility] HCO3 [Moles/Vol] 24 mmol/L 21 - 32 mmol/L [facility] Interpretation and review of laboratory results Abnormal [facility] Potassium [Moles/Vol] 3.1 mmol/L Low 3.5 - 5.1 mmol/L [facility] Sodium [Moles/Vol] 135 mmol/L 135 - 145 mmol/L [facility] Urea nitrogen [Mass/Vol] 10 mg/dL 8 - 25 mg/dL [facility] Urea nitrogen/Creatinine [Mass ratio] 11.9 mg/mg [facility] CBCon 11-09-2020 Erythrocyte distribution width (RBC) [Entitic vol] 16.2 % High 11.6 - 14.8 % [facility] Hematocrit (Bld) [Volume fraction] 35.8 % Low 41 - 53 % [facility] Hemoglobin (Bld) [Mass/Vol] 11.2 g/dL Low 13.5 - 17.5 g/dL [facility] Interpretation and review of laboratory results Abnormal [facility] MCH (RBC) [Entitic mass] 25.9 pg Low 26 - 34 pg [facility] MCHC (RBC) [Mass/Vol] 31.3 g/dL 31 - 37 g/dL [facility] MCV (RBC) [Entitic vol] 82.9 fL 80 - 100 fL [facility] Nucleated RBC (Bld) [#/Vol] 0.00 10*3/uL [facility] Nucleated RBC/100 WBC (Bld) [Ratio] 0.0 % [facility] Platelet mean volume (Bld) [Entitic vol] 11.1 fL 9.4 - 12.4 fL [facility] Platelets (Bld) [#/Vol] 337 10*3/uL [facility] RBC (Bld) [#/Vol] 4.32 10*6/uL Low [facility] ealth WBC (Bld) [#/Vol] 11.42 10*3/uL High [facility] Magnesium Levelon 11-09-2020 Interpretation and review of laboratory results Normal [facility] Magnesium [Mass/Vol] 1.7 mg/dL 1.6 - 2 .4 mg/dL [facility] POC Glucoseon 11-09-2020 Glucose [Mass/Vol] 112 mg/dL High 65 - 99 mg/dL [facility] Interpretation and review of laboratory results Abnormal [facility] Glucose [Mass/Vol] 82 mg/dL 65 - 99 mg/dL [facility] Interpretation and review of laboratory results Normal [facility] Glucose [Mass/Vol] 81 mg/dL 65 - 99 mg/dL [facility] Interpretation and review of laboratory results Normal [facility] Glucose [Mass/Vol] 88 mg/dL 65 - 99 mg/dL [facility] Interpretation and review of laboratory results Normal [facility] Glucose [Mass/Vol] 96 mg/dL 65 - 99 mg/dL [facility] Interpretation and review of laboratory results Normal [facility] Glucose [Mass/Vol] 88 mg/dL 65 - 99 mg/dL [facility] Interpretation and review of laboratory results Normal [facility] Glucose [Mass/Vol] 61 mg/dL Low 65 - 99 mg/dL [facility] Interpretation and review of laboratory results Abnormal [facility] Urine Aerobic Cultureon 10-22 Bacteria identified Aer cx Nom (Unsp spec) No Growth (<1,000 CFU/mL) [facility] WOUND AEROBIC CULTUREon 10-22 Bacteria identified Aer cx Nom (Wound) Light Growth Staphylococcus aureus Abnormal [facility] Comment on above: See susceptibility f rom same source/different date: 11/06/2020 Interpretation and review of laboratory results Abnormal [facility] Microscopic observation Gram stain Nom (Wound) Positive [facility] Microscopic observation Gram stain Nom (Wound) [facility] Microscopic observation Gram stain Nom (Wound) No Epithelial Cells Seen [facility] Basic Metabolic Panelon 10-22 Anion gap [Moles/Vol] 9 mmol/L Low 10 - 2 0 mmol/L [facility] Calcium [Mass/Vol] 7.8 mg/dL Low 8.4 - 10. 2 mg/dL [facility] Chloride [Moles/Vol] 104 mmol/L 98 - 10 8 mmol/L [facility] Creatinine [Mass/Vol] 0.98 mg/dL 0.50 - 1.30 [facility] GFR/1.73 sq M predicted among non-blacks MDRD (S/P/Bld) [Vol rate/Area] The eGFR should be used for monitoring renal function only and not for medication dosing. [facility] GFR/1.73 sq M.predicted CKD-EPI (S/P/Bld) [Vol rate/Area] 88 >=60 mL/min/1.73 m2 [facility] Glucose [Mass/Vol] 136 mg/dL High 65 - 99 mg/dL [facility] HCO3 [Moles/Vol] 25 mmol/L 21 - 32 mmol/L [facility] Interpretation and review of laboratory results Abnormal [facility] Potassium [Moles/Vol] 3.4 mmol/L Low 3.5 - 5.1 mmol/L [facility] Sodium [Moles/Vol] 135 mmol/L 135 - 145 mmol/L [facility] Urea nitrogen [Mass/Vol] 14 mg/dL 8 - 25 mg/dL [facility] Urea nitrogen/Creatinine [Mass ratio] 14.3 mg/mg [facility] Otheron 11-08-2020 Bacteria identified Aer cx Nom (Wound) Moderate Growth Staphylococcus aureus Abnormal [facility] Comment on above: This Staphylococcus aureus is Methicillin SUSCEPTIBLE by PBP2a testing. Beta-lactams like Cefazolin and Nafcillin are superior to Vancomycin for treating mSsa. Interpretation and review of laboratory results Abnormal [facility] Microscopic observation Gram stain Nom (Wound) No Epithelial Cells Seen [facility] POC Glucoseon 11-08-2020 Glucose [Mass/Vol] 105 mg/dL High 65 - 99 mg/dL [facility] Interpretation and review of laboratory results Abnormal [facility] Glucose [Mass/Vol] 98 mg/dL 65 - 99 mg/dL [facility] Interpretation and review of laboratory results Normal [facility] Glucose [Mass/Vol] 109 mg/dL High 65 - 99 mg/dL [facility] Interpretation and review of laboratory results Abnormal [facility] Glucose [Mass/Vol] 107 mg/dL High 65 - 99 mg/dL [facility] Interpretation and review of laboratory results Abnormal [facility] WOUND AEROBIC CULTUREon 10-22 Bacteria identified Aer cx Nom (Wound) Moderate Growth Streptococcus agalactiae (Group B) Abnormal [facility] Microscopic observation Gram stain Nom (Wound) Positive [facility] Microscopic observation Gram stain Nom (Wound) No Organisms Seen [facility] Microscopic observation Gram stain Nom (Wound) Few WBC [facility] Microscopic observation Gram stain Nom (Wound) Rare WBC [facility] See susceptibility from same source/same date. [facility] CBC WITH AUTO DIFFERENTIALon 11-07-2020 Basophils (Bld) [#/Vol] 0.09 10*3/uL [facility] Basophils/100 WBC (Bld) 0.7 % [facility] Eosinophils (Bld) [#/Vol] 0.22 10*3/uL [facility] Eosinophils/100 WBC (Bld) 1.8 % [facility] Erythrocyte distribution width (RBC) [Entitic vol] 15.9 % High 11.6 - 14.8 % [facility] Hematocrit (Bld) [Volume fraction] 35.6 % Low 41 - 53 % [facility] Hemoglobin (Bld) [Mass/Vol] 11.2 g/dL Low 13.5 - 17.5 g/dL [facility] Immature granulocytes (Bld) [#/Vol] 0.20 10*3/uL [facility] Immature granulocytes/100 WBC (Bld) 1.70 % [facility] Comment on above: The IG parameter is the percentage of metamyelocytes, myelocytes and promyelocytes. An immature granulocyte count (IG) of 1% or more suggests the possibility of infection, an IG count of 3% is very likely related to an infection. Interpretation and review of laboratory results Abnormal [facility] Lymphocytes (Bld) [#/Vol] 1.29 10*3/uL [facility] Lymphocytes/100 WBC (Bld) 10.7 % [facility] MCH (RBC) [Entitic mass] 26.4 pg 26 - 34 pg [facility] MCHC (RBC) [Mass/Vol] 31.5 g/dL 31 - 37 g/dL [facility] MCV (RBC) [Entitic vol] 83.8 fL 80 - 100 fL [facility] Monocytes (Bld) [#/Vol] 1.22 10*3/uL High [facility] Monocytes/100 WBC (Bld) 10.1 % [facility] Neutrophils (Bld) [#/Vol] 9.01 10*3/uL High [facility] Neutrophils/100 WBC (Bld) 75.0 % [facility] Nucleated RBC (Bld) [#/Vol] 0.00 10*3/uL [facility] Nucleated RBC/100 WBC (Bld) [Ratio] 0.0 % [facility] Platelet mean volume (Bld) [Entitic vol] 11.1 fL 9.4 - 12.4 fL [facility] Platelets (Bld) [#/Vol] 282 10*3/uL [facility] RBC (Bld) [#/Vol] 4.25 10*6/uL Low [facility] eah WBC (Bld) [#/Vol] 12.03 10*3/uL High [facility] POC Glucoseon 11-07-2020 Glucose [Mass/Vol] 178 mg/dL High 65 - 99 mg/dL [facility] Interpretation and review of laboratory results Abnormal [facility] Glucose [Mass/Vol] 205 mg/dL High 65 - 99 mg/dL [facility] Interpretation and review of laboratory results Abnormal [facility] Glucose [Mass/Vol] 221 mg/dL High 65 - 99 mg/dL [facility] Interpretation and review of laboratory results Abnormal [facility] Glucose [Mass/Vol] 206 mg/dL High 65 - 99 mg/dL [facility] Interpretation and review of laboratory results Abnormal [facility] Glucose [Mass/Vol] 209 mg/dL High 65 - 99 mg/dL [facility] Interpretation and review of laboratory results Abnormal [facility] C3 COMPLEMENTon 11-06-2020 Complement C3 [Mass/Vol] 151.9 mg/dL 73 - 183 mg/dL [facility] C4 COMPLEMENTon 11-06-2020 Complement C4 [Mass/Vol] 21.6 mg/dL 16 - 47 mg/dL [facility] CBC WITH AUTO DIFFERENTIALon 11-06-2020 Basophils (Bld) [#/Vol] 0.07 10*3/uL [facility] Basophils/100 WBC (Bld) 0.5 % [facility] Eosinophils (Bld) [#/Vol] 0.05 10*3/uL [facility] Eosinophils/100 WBC (Bld) 0.3 % [facility] Erythrocyte distribution width (RBC) [Entitic vol] 15.4 % High 11.6 - 14.8 % [facility] Hematocrit (Bld) [Volume fraction] 34.1 % Low 41 - 53 % [facility] Hemoglobin (Bld) [Mass/Vol] 10.8 g/dL Low 13.5 - 17.5 g/dL [facility] Immature granulocytes (Bld) [#/Vol] 0.14 10*3/uL [facility] Immature granulocytes/100 WBC (Bld) 0.90 % [facility] Comment on above: The IG parameter is the percentage of metamyelocytes, myelocytes and promyelocytes. An immature granulocyte count (IG) of 1% or more suggests the possibility of infection, an IG count of 3% is very likely related to an infection. Interpretation and review of laboratory results Abnormal [facility] Lymphocytes (Bld) [#/Vol] 1.06 10*3/uL [facility] Lymphocytes/100 WBC (Bld) 6.9 % [facility] MCH (RBC) [Entitic mass] 26.2 pg 26 - 34 pg [facility] MCHC (RBC) [Mass/Vol] 31.7 g/dL 31 - 37 g/dL [facility] MCV (RBC) [Entitic vol] 82.6 fL 80 - 100 fL [facility] Monocytes (Bld) [#/Vol] 1.56 10*3/uL High [facility] Monocytes/100 WBC (Bld) 10.2 % [facility] Neutrophils (Bld) [#/Vol] 12.39 10*3/uL High [facility] Neutrophils/100 WBC (Bld) 81.2 % [facility] Nucleated RBC (Bld) [#/Vol] 0.00 10*3/uL [facility] Nucleated RBC/100 WBC (Bld) [Ratio] 0.0 % [facility] Platelet mean volume (Bld) [Entitic vol] 11.2 fL 9.4 - 12.4 fL [facility] Platelets (Bld) [#/Vol] 248 10*3/uL [facility] RBC (Bld) [#/Vol] 4.13 10*6/uL Low [facility] ealth WBC (Bld) [#/Vol] 15.27 10*3/uL High [facility] CT COMPARISON IMPORTon 11-06 This order has been auto-finalized and does not contain a result. [facility] Hemoglobin A1con 11-06-2020 Average glucose Estimated from glycated hemoglobin mass conc (Bld) 189 mg/dL High 68 - 114 mg/dL [facility] HbA1c (Bld) [Mass fraction] 8.2 % High 4 - 5.6 % [facility] Interpretation and review of laboratory results Abnormal [facility] Normal: 4.0% - 5.6% Increased risk for diabetes: 5.7% - 6.4% Diabetes: >= 6.5% Pediatrics: No established reference range Estimated average glucose: 68-114 mg/dL [facility] Lactic Acid, Plasmaon 2019 Interpretation and review of laboratory results Abnormal [facility] Lactate [Moles/Vol] 2.3 mmol/L High 0.6 - 2 mmol/L [facility] MR Foot Left With And Withou [...] No tendon tear or tenosynovitis is seen. [employer] Workstation ID: [id number] [facility] EXAMINATION: MR FOOT LEFT WITH AND [...] muscles presumably related to chronic diabetic neuropathy. [facility] 1. Abnormal appearan ce of the [...] tenosynovitis is seen. MPH/mkv Workstation ID: [id number] [facility] MR Foot Right With And Witho [...] dome osteochondral lesion is seen. There is gujv-kp-arftqvyr mid and hindfoot osteoarthritis with scattered marginal [...] 3. No MR signs of osteomyelitis. 4. Ztpv-oc-gfykglrp mid/hindfoot osteoarthritis. 5. Remote sprains of the ATFL and deep fibers of the deltoid ligament, as above. [email or web address] Workstation ID: [id number] [facility] EXAMINATION: MR FOOT RIGHT WITH AND [...] dome osteochondral lesion is seen. There is nnwl-lk-vkyumgai mid and hindfoot osteoarthritis with scattered marginal [...] cm in transverse dimension. No associated abscess. [facility] 1. Prior forefoot resection. Cellulitis of the surgical stump is seen associated with small ulceration. 2. No abscess. 3. No MR signs of osteomyelitis. 4. Oerm-ec-cznoiojn mid/hindfoot osteoarthritis. 5. Remote sprains of the ATFL and deep fibers of the deltoid ligament, as above. [email or web address] Workstation ID: [id number] [facility] Magnesiumon 11-06-2020 Magnesium [Mass/Vol] 1.9 mg/dL 1.6 - 2 .4 mg/dL [facility] Otheron 11-06-2020 Interpretation and review of laboratory results Normal [facility] EXAMINATION: XR FOOT RIGHT 3+ VIEWS [...] LEFT: BONES: No acute fracture or dislocation. Iliv-rl-kmquzxzi degenerative changes throughout the foot. Severe degenerative changes the 1st metatarsophalangeal joint with bony remodeling, oxxz-tp-lika articulation and marginal osteophyte formation. Enthesopathic spurring of the calcaneus. SOFT TISSUES: Moderate soft tissue swelling EFFUSION: None visible. OTHER: Negative. [facility] No definite plain fi lm evidence of osteomyelitis in the right or left foot Workstation ID: [id number] [facility] Interface, Rad In Fu ji Speechq [...] LEFT: BONES: No acute fracture or dislocation. Xkfj-kd-moomcymg degenerative changes throughout the foot. Severe degenerative changes the 1st metatarsophalangeal joint with bony remodeling, fhmy-td-fqxd articulation and marginal osteophyte formation. Enthesopathic spurring of the calcaneus. SOFT TISSUES: Moderate soft tissue swelling EFFUSION: None visible. OTHER: Negative. IMPRESSION: No definite plain film evidence of osteomyelitis in the right or left foot Workstation ID: [id number] [facility] Interpretation and review of laboratory results Normal [facility] POC Glucoseon 11-06-2020 Glucose [Mass/Vol] 327 mg/dL High 65 - 99 mg/dL [facility] Interpretation and review of laboratory results Abnormal [facility] Glucose [Mass/Vol] 301 mg/dL High 65 - 99 mg/dL [facility] Interpretation and review of laboratory results Abnormal [facility] Glucose [Mass/Vol] 272 mg/dL High 65 - 99 mg/dL [facility] Interpretation and review of laboratory results Abnormal [facility] Glucose [Mass/Vol] 346 mg/dL High 65 - 99 mg/dL [facility] Interpretation and review of laboratory results Abnormal [facility] Glucose [Mass/Vol] 303 mg/dL High 65 - 99 mg/dL [facility] Interpretation and review of laboratory results Abnormal [facility] Procalcitoninon 11-06-2020 Interpretation and review of laboratory results Abnormal [facility] Procalcitonin [Mass/Vol] 3.85 ng/mL High <0.50 [facility] Results >2.00 ng/ml represent a high risk of severe sepsis and/or septic shock. [facility] Protein / Creatinine Ratio, Urineon 11-06-2020 Creatinine (U) [Mass/Vol] 36.6 mg/dL [facility] Interpretation and review of laboratory results Abnormal [facility] Protein (U) [Mass/Vol] 61.1 mg/dL [facility] Protein/Creatinine (U) [Ratio] 1.7 High [facility] Reflex Lactic Acid, Plasmaon 11-06-2020 Interpretation and review of laboratory results Abnormal [facility] Lactate [Moles/Vol] 2.1 mmol/L High 0.6 - 2 mmol/L [facility] Renal Function Panelon 11-06 Albumin [Mass/Vol] 1.5 g/dL Low 3.2 - 5.2 g/dL [facility] Anion gap [Moles/Vol] 13 mmol/L 10 - 2 0 mmol/L [facility] Calcium [Mass/Vol] 7.7 mg/dL Low 8.4 - 10. 2 mg/dL [facility] Chloride [Moles/Vol] 104 mmol/L 98 - 10 8 mmol/L [facility] Creatinine [Mass/Vol] 1.54 mg/dL High 0.50 - 1.30 [facility] GFR/1.73 sq M predicted among non-blacks MDRD (S/P/Bld) [Vol rate/Area] The eGFR should be used for monitoring renal function only and not for medication dosing. [facility] GFR/1.73 sq M.predicted CKD-EPI (S/P/Bld) [Vol rate/Area] 51 Low >=60 mL/min/1.73 m2 [facility] Glucose [Mass/Vol] 281 mg/dL High 65 - 99 mg/dL [facility] HCO3 [Moles/Vol] 19 mmol/L Low 21 - 32 mmol/L [facility] Interpretation and review of laboratory results Abnormal [facility] Phosphate [Mass/Vol] 2.2 mg/dL Low 2.7 - 4 .5 mg/dL [facility] Potassium [Moles/Vol] 3.8 mmol/L 3.5 - 5.1 mmol/L [facility] Sodium [Moles/Vol] 132 mmol/L Low 135 - 145 mmol/L [facility] Urea nitrogen [Mass/Vol] 36 mg/dL High 8 - 25 mg/dL [facility] Urea nitrogen/Creatinine [Mass ratio] 23.4 mg/mg High [facility] TSHon 11-06-2020 TSH Qn 0.80 m[IU]/L [facility] URINALYSISon 11-06-2020 Bacteria Auto Ql (U) Rare Abnormal None Se en /hpf [facility] Bilirubin Ql (U) Negative Negative [facility] th Clarity Refractometry automated (U) Clear Clear [facility] Color (U) Yellow Colorless, Yellow [facility] Epithelial cells.squamous Auto (Urine sed) [#/Area] <1 [facility] Glucose Auto test strip (U) [Mass/Vol] >=500 Abnormal Negative mg/dL [facility] Hemoglobin Auto test strip Ql (U) Moderate Abnormal Negative [facility] Interpretation and review of laboratory results Abnormal [facility] Ketones (U) [Mass/Vol] 20 Abnormal Negative mg/dL [facility] Leukocyte esterase Auto test strip Ql (U) Negative Negative [facility] Mucus Auto (Urine sed) [#/Area] Rare None Seen, Rare /lpf [facility] Nitrite Auto test strip Ql (U) Negative Negative [facility] pH (U) 5.5 [pH] [facility] Protein (U) [Mass/Vol] 30 Abnormal Negative mg/dL [facility] Comment on above: False positive resul ts may occur in urines with large amounts of hemoglobin, pH greater than 8.0, contrast medium, or disinfectants including ammonium compounds. RBC Auto (Urine sed) [#/Area] 19 High [facility] Specific gravity (U) [Rel density] 1.019 [facility] Urobilinogen (U) [Mass/Vol] <2.0 <2.0 mg/dL [facility] WBC Auto (Urine sed) [#/Area] 1 [facility] Microscopic examination is performed on all urinalysis samples and only positive findings are reported. The test for blood on the chemical analytic portion of urinalysis may also be positive due to hemoglobinuria and myoglobinuria and if red blood cells are present they are quantified by microscopic examination. [facility] XR COMPARISON IMPORTon 11-06 This order has been auto-finalized and does not contain a result. [facility] XR FOOT LEFT 3+ VIEWS (STAND [...] LEFT: BONES: No acute fracture or dislocation. Riiz-qv-rfvqaxxn degenerative changes throughout the foot. Severe degenerative changes the 1st metatarsophalangeal joint with bony remodeling, ndpq-aa-yerj articulation and marginal osteophyte formation. Enthesopathic spurring [...] WedNov 06, 2020 10:27:44 AM EST Normal [facility] Comment on above: Order Comment: Injur [...] LEFT: BONES: No acute fracture or dislocation. Xsht-vg-prnbtyrg degenerative changes throughout the foot. Severe degenerative changes the 1st metatarsophalangeal joint with bony remodeling, sdta-ad-qgad articulation and marginal osteophyte formation. Enthesopathic spurring [...] WedNov 06, 2020 10:27:44 AM EST Normal [facility] Comment on above: Order Comment: Injur y/Trauma or Illness?:Illness/Other How long have you had these symptoms (acute/chronic)?:Acute Reason for exam?:Secondary DM with DKA (HCC) History of cancer?: Surgeries, chemotherapy, or radiation?: Type of Exam?:Initial Additional signs and symptoms?:Secondary DM with DKA (HCC), no known injury Beta-Hydroxybutyrateon 11-05 Beta hydroxybutyrate [Moles/Vol] 1.4 mmol/L High 0 - 0.3 mmol/L [facility] Interpretation and review of laboratory results Abnormal [facility] CBC WITH AUTO DIFFERENTIALon 11-05-2020 Basophils (Bld) [#/Vol] 0.07 10*3/uL [facility] Basophils/100 WBC (Bld) 0.4 % [facility] Eosinophils (Bld) [#/Vol] 0.01 10*3/uL [facility] Eosinophils/100 WBC (Bld) 0.1 % [facility] Erythrocyte distribution width (RBC) [Entitic vol] 15.2 % High 11.6 - 14.8 % [facility] Hematocrit (Bld) [Volume fraction] 37.7 % Low 41 - 53 % [facility] Hemoglobin (Bld) [Mass/Vol] 11.9 g/dL Low 13.5 - 17.5 g/dL [facility] Immature granulocytes (Bld) [#/Vol] 0.10 10*3/uL [facility] Immature granulocytes/100 WBC (Bld) 0.60 % [facility] Comment on above: The IG parameter is the percentage of metamyelocytes, myelocytes and promyelocytes. An immature granulocyte count (IG) of 1% or more suggests the possibility of infection, an IG count of 3% is very likely related to an infection. Interpretation and review of laboratory results Abnormal [facility] Lymphocytes (Bld) [#/Vol] 0.60 10*3/uL Low [facility] Lymphocytes/100 WBC (Bld) 3.8 % [facility] MCH (RBC) [Entitic mass] 26.3 pg 26 - 34 pg [facility] MCHC (RBC) [Mass/Vol] 31.6 g/dL 31 - 37 g/dL [facility] MCV (RBC) [Entitic vol] 83.4 fL 80 - 100 fL [facility] Monocytes (Bld) [#/Vol] 1.71 10*3/uL [facility] Monocytes/100 WBC (Bld) 10.8 % [facility] Neutrophils (Bld) [#/Vol] 13.36 10*3/uL High [facility] Neutrophils/100 WBC (Bld) 84.3 % [facility] Nucleated RBC (Bld) [#/Vol] 0.00 10*3/uL [facility] Nucleated RBC/100 WBC (Bld) [Ratio] 0.0 % [facility] Platelet mean volume (Bld) [Entitic vol] 11.0 fL 9.4 - 12.4 fL [facility] Platelets (Bld) [#/Vol] 274 10*3/uL [facility] RBC (Bld) [#/Vol] 4.52 10*6/uL [facility] ealth WBC (Bld) [#/Vol] 15.85 10*3/uL [facility] CPK NO MBon 11-05-2020 CK [Catalytic activity/Vol] 98 U/L 60 - 225 U/L [facility] Interpretation and review of laboratory results Normal [facility] CRP, Inflammationon 11-05-20 20 CRP [Mass/Vol] 468.0 mg/L High <=10.0 [facility] Comprehensive Metabolic Pane anuel 11-05-2020 Albumin [Mass/Vol] 1.8 g/dL Low 3.2 - 5.2 g/dL [facility] ALP [Catalytic activity/Vol] 95 U/L 40 - 150 U/L [facility] ALT [Catalytic activity/Vol] 16 U/L 14 - 65 U/L [facility] Anion gap [Moles/Vol] 14 mmol/L 10 - 2 0 mmol/L [facility] AST [Catalytic activity/Vol] 26 U/L 0 - 45 U/L [facility] Bilirubin [Mass/Vol] 0.9 mg/dL 0 - 1.3 mg/dL [facility] Calcium [Mass/Vol] 8.2 mg/dL Low 8.4 - 10. 2 mg/dL [facility] Chloride [Moles/Vol] 97 mmol/L Low 98 - 10 8 mmol/L [facility] Creatinine [Mass/Vol] 1.82 mg/dL High 0.50 - 1.30 [facility] GFR/1.73 sq M predicted among non-blacks MDRD (S/P/Bld) [Vol rate/Area] The eGFR should be used for monitoring renal function only and not for medication dosing. [facility] GFR/1.73 sq M.predicted CKD-EPI (S/P/Bld) [Vol rate/Area] 41 Low >=60 mL/min/1.73 m2 [facility] Glucose [Mass/Vol] 309 mg/dL High 65 - 99 mg/dL [facility] HCO3 [Moles/Vol] 22 mmol/L 21 - 32 mmol/L [facility] Potassium [Moles/Vol] 3.3 mmol/L Low 3.5 - 5.1 mmol/L [facility] Protein [Mass/Vol] 8.1 g/dL High 6 - 8 g/dL [facility] Sodium [Moles/Vol] 130 mmol/L Low 135 - 145 mmol/L [facility] Urea nitrogen [Mass/Vol] 42 mg/dL High 8 - 25 mg/dL [facility] Urea nitrogen/Creatinine [Mass ratio] 23.1 mg/mg High [facility] Lactic Acid, Plasmaon 2019 Interpretation and review of laboratory results Abnormal [facility] Lactate [Moles/Vol] 3.1 mmol/L High 0.6 - 2 mmol/L [facility] MR FOOT LEFT WITH AND WITHOU [...] WedNov 06, 2020 9:27:00 PM EST Normal [facility] Comment on above: Order Comment: Injur [...] dome osteochondral lesion is seen. There is oucl-jd-uhjsljmy mid and hindfoot osteoarthritis with scattered marginal [...] 3. No MR signs of osteomyelitis. 4. Nfya-sc-udqiszmf mid/hindfoot osteoarthritis. 5. Remote sprains of the ATFL and deep fibers of the deltoid ligament, as above. [email or web address] Workstation ID: [id number] Dictated by: CHAN OLIVERA on WedNov 06, 2020 8:37:02 PM EST Transcribed by: DEBRA BOLIVAR on WedNov 06, 2020 8:49:17 PM EST Finalized by: CHAN OLIVERA on WedNov 06, 2020 8:58:02 PM EST Normal [facility] Comment on above: Order Comment: Injur y/Trauma or Illness?:Illness/Other How long have you had these symptoms (acute/chronic)?:Acute Reason for exam?:non healing wound on top of foot History of cancer?: Surgeries, chemotherapy, or radiation?: Type of Exam?:Initial Additional signs and symptoms?:pain Magnesiumon 11-05-2020 Interpretation and review of laboratory results Normal [facility] Magnesium [Mass/Vol] 2.0 mg/dL 1.6 - 2 .4 mg/dL [facility] Otheron 11-05-2020 Interpretation and review of laboratory results Abnormal [facility] Phosphoruson 11-05-2020 Phosphate [Mass/Vol] 1.6 mg/dL Low 2.7 - 4 .5 mg/dL [facility] Sedimentation Rateon 020 ESR (Bld) [Velocity] 110 mm/h High [facility] Interpretation and review of laboratory results Abnormal [facility] TROPONINon 11-05-2020 Troponin I.cardiac [Mass/Vol] ng/mL <=45 ng/L [facility] Troponin I.cardiac [Mass/Vol] No biomarker evidence of cardiac injury. [facility] Troponin I.cardiac [Mass/Vol] ng/mL <=45 ng/L [facility] Troponin I.cardiac [Mass/Vol] Normal [facility] XR CHEST PA/APon 11-05-2020 XR CHEST [...] WedNov 05, 2020 8:04:45 PM EST Normal [facility] Comment on above: Order Comment: Injur y/Trauma or Illness?:Illness/Other How long have you had these symptoms (acute/chronic)?:Acute Reason for exam?:SOB History of cancer?: Surgeries, chemotherapy, or radiation?: Type of Exam?:Initial Additional signs and symptoms?:n XR Chest 1 Viewon 11-05-2020 Interface, Rad In [facility] - 11/05/2020 8:07 PM EST EXAMINATION: XR [...] be atelectasis or pneumonia Workstation ID: [id number] [facility] EXAMINATION: XR CHES T PA/AP 11/05/2020 [...] effusion or pneumothorax. No acute osseous abnormality. [facility] Shallow lungs with right basilar opacity, could be atelectasis or pneumonia Workstation ID: [id number] [facility] HEMOGLOBIN A1Con 12-26-2018 Hemoglobin A1c/Hemoglobin.total mass fraction (Bld) 7.6 % High 4.0-6.0 [facility] Comment on above: Performed By: [id number] #### [facility] [address] [facility] Hemoglobin A1c/Hemoglobin.total mass fraction (Bld) 171 mg/dL High 70-126 [facility] Comment on above: Performed By: [id number] #### [facility] [address] Vital Signs Date Time Vital Sign Value Performing Clinician Facility 08-13-2025 08:17-0400 Body mass index (BMI) [Ratio] 37.31 kg/m2 [facility] 08-13-2025 08:17-0400 Body weight 112.95 kg [facility] 08-13-2025 08:17-0400 Diastolic blood pressure 72 mm[Hg] [facility] 08-13-2025 08:17-0400 Heart rate 94 /min [facility] 08-13-2025 08:17-0400 Systolic blood pressure 115 mm[Hg] [facility] 08-10-2025 10:17-0400 Body mass index (BMI) [Ratio] 37.46 kg/m2 Art Freeman DO Work Phone: [facility] 08-10-2025 10:17-0400 Body temperature 97.59 [degF] Art Freeman DO Work Phone: [facility] 08-10-2025 10:17-0400 Body weight 113.4 kg Art Freeman DO Work Phone: [facility] [employer] [facility] 08-10-2025 10:17-0400 Diastolic blood pressure 78 mm[Hg] Art Freeman DO Work Phone: [facility] [employer] [facility] 08-10-2025 10:17-0400 Heart rate 82 /min Art Freeman DO Work Phone: [facility] 08-10-2025 10:17-0400 SaO2% (BldA) [Mass fraction] 96 % Art Freeman DO Work Phone: [facility] 08-10-2025 10:17-0400 Systolic blood pressure 132 mm[Hg] Art Freeman DO Work Phone: [facility] 07-16-2025 13:30-0400 Body mass index (BMI) [Ratio] 37.59 kg/m2 [facility] 07-16-2025 13:30-0400 Body weight 113.8 kg [facility] 07-09-2025 12:22-0400 Diastolic blood pressure 74 mm[Hg] Cheng Aichholz Work Phone: [facility] 07-09-2025 12:22-0400 Heart rate 78 /min Cheng Aichholz Work Phone: [facility] 07-09-2025 12:22-0400 Respiratory rate 16 /min Cheng Aichholz Work Phone: [facility] 07-09-2025 12:22-0400 SaO2% (BldA) [Mass fraction] 95 % Cheng Aichholz Work Phone: [facility] 07-09-2025 12:22-0400 Systolic blood pressure 112 mm[Hg] Cheng Aichholz Work Phone: [facility] 07-09-2025 10:40-0400 Inhaled oxygen flow rate 2 L/min Cheng Aichholz Work Phone: [facility] 07-09-2025 08:31-0400 Body height 177.8 cm Cheng Staples Work Phone: [facility] 07-09-2025 08:31-0400 Body weight 117.02 kg Cheng Staples Work Phone: [facility] 07-05-2025 09:26-0400 Body mass index (BMI) [Ratio] 37.54 kg/m2 Art Freeman DO Work Phone: [facility] [employer] [facility] 07-05-2025 09:26-0400 Body temperature 98.1 [degF] Art Freeman [facility] 07-05-2025 09:26-0400 Body weight 113.67 kg Art Freeman [facility]: [facility] 07-05-2025 09:26-0400 Diastolic blood pressure 72 mm[Hg] Art Freeman DO [facility] 07-05-2025 09:26-0400 Heart rate 90 /min Art Freeman DO [facility] 07-05-2025 09:26-0400 SaO2% (BldA) [Mass fraction] 95 % Art Freeman DO Work Phone: [facility] [employer] [facility] 07-05-2025 09:26-0400 Systolic blood pressure 116 mm[Hg] Art Freeman DO Work Phone: [facility] [employer] [facility] 06-28-2025 10:48-0400 Body height 177.8 cm Cheng Staples Work Phone: [facility] 06-28-2025 10:48-0400 Body mass index (BMI) [Ratio] 38.2 kg/m2 Cheng Chaoholnia Work Phone: [facility] 06-28-2025 10:48-0400 Body temperature 98.2 [degF] Cheng Aichholz Work Phone: [facility] 06-28-2025 10:48-0400 Body weight 121.1 kg Cheng Staples Work Phone: [facility] 06-28-2025 10:48-0400 Diastolic blood pressure 82 mm[Hg] Cheng Staples Work Phone: [facility] 06-28-2025 10:48-0400 Heart rate 68 /min Cheng Staples Work Phone: [facility] 06-28-2025 10:48-0400 Respiratory rate 16 /min Cheng Staples Work Phone: [facility] 06-28-2025 10:48-0400 SaO2% (BldA) [Mass fraction] 98 % Cheng Staples Work Phone: [facility] 06-28-2025 10:48-0400 Systolic blood pressure 122 mm[Hg] Cheng Staples Work Phone: [facility] 05-10-2025 09:29-0400 Body mass index (BMI) [Ratio] 38.11 kg/m2 Art Freeman DO Work Phone[facility] 05-10-2025 09:29-0400 Body temperature 97.81 [degF] Art Gutierrezlauren Work Phone: [facility] 05-10-2025 09:29-0400 Body weight 115.39 kg Art Freeman DO Work Phone: [employer] [facility] 05-10-2025 09:29-0400 Diastolic blood pressure 72 mm[Hg] Art Freeman DO Work Phone[facility] 05-10-2025 09:29-0400 Heart rate 90 /min Art Freeman DO Work Phone[facility] 05-10-2025 09:29-0400 SaO2% (BldA) [Mass fraction] 95 % rAt Freeman DO Work Phone: [facility] 05-10-2025 09:29-0400 Systolic blood pressure 110 mm[Hg] Art Freeman DO Work Phone: [facility] 04-26-2025 14:12-0400 Body height 174 cm Art Freeman DO Work Phone: [facility] 04-26-2025 14:12-0400 Body mass index (BMI) [Ratio] 38.05 kg/m2 Art Freeman DO Work Phone: [facility] 04-26-2025 14:12-0400 Body temperature 98.1 [degF] Art Freeman DO Work Phone: [facility] 04-26-2025 14:12-0400 Body weight 115.21 kg Art Freeman DO Work Phone: [facility] 04-26-2025 14:12-0400 Diastolic blood pressure 82 mm[Hg] Art Freeman DO Work Phone: [facility] 04-26-2025 14:12-0400 Heart rate 95 /min Art Freeman DO Work Phone: [facility] 04-26-2025 14:12-0400 SaO2% (BldA) [Mass fraction] 96 % Art Freeman DO Work Phone: [facility] 04-26-2025 14:12-0400 Systolic blood pressure 118 mm[Hg] Art Freeman DO Work Phone: [facility] 04-24-2025 09:00-0400 Body temperature 97.7 [degF] Sherri CHAVEZ Work Phone: [facility] 04-24-2025 09:00-0400 Diastolic blood pressure 81 mm[Hg] Sherri Garcia APRN-ROSALIA Work Phone: [facility] 04-24-2025 09:00-0400 Heart rate 97 /min Sherri Kaitlynn CORE MACHINE TENDER-HOME OFFICE REPRESENTATIVE Work Phone: [facility] 04-24-2025 09:00-0400 Respiratory rate 16 /min Sherri Garcia CORE MACHINE TENDER-HOME OFFICE REPRESENTATIVE Work Phone: [facility] 04-24-2025 09:00-0400 Systolic blood pressure 116 mm[Hg] Sherri Garcia CORE MACHINE TENDER-HOME OFFICE REPRESENTATIVE Work Phone: [facility] 04-11-2025 10:36-0400 Body temperature 97.5 [degF] Sherri Garcia CORE MACHINE TENDER-HOME OFFICE REPRESENTATIVE Work Phone: [facility] 04-11-2025 10:36-0400 Diastolic blood pressure 73 mm[Hg] Sherri Garcia CORE MACHINE TENDER-HOME OFFICE REPRESENTATIVE Work Phone: [facility] 04-11-2025 10:36-0400 Heart rate 100 /min Sherri Garcia CORE MACHINE TENDER-HOME OFFICE REPRESENTATIVE Work Phone: [facility] 04-11-2025 10:36-0400 Respiratory rate 16 /min Sherri Garcia CORE MACHINE TENDER-HOME OFFICE REPRESENTATIVE Work Phone: [facility] 04-11-2025 10:36-0400 Systolic blood pressure 157 mm[Hg] Sherri Garcia CORE MACHINE TENDER-HOME OFFICE REPRESENTATIVE Work Phone: [facility] 03-28-2025 10:56-0400 Body temperature 97.7 [degF] Sherri Garcia CORE MACHINE TENDER-HOME OFFICE REPRESENTATIVE Work Phone: [facility] 03-28-2025 10:56-0400 Diastolic blood pressure 85 mm[Hg] Sherri Garcia CORE MACHINE TENDER-HOME OFFICE REPRESENTATIVE Work Phone: [facility] 03-28-2025 10:56-0400 Heart rate 94 /min Sherri Garcia CORE MACHINE TENDER-HOME OFFICE REPRESENTATIVE Work Phone: [facility] 03-28-2025 10:56-0400 Respiratory rate 16 /min Sherri Garcia CORE MACHINE TENDER-HOME OFFICE REPRESENTATIVE Work Phone: [facility] 03-28-2025 10:56-0400 Systolic blood pressure 144 mm[Hg] Sherri Garcia APRN-HOME OFFICE REPRESENTATIVE Work Phone: [facility] 10-24-2024 08:45-0500 Body height 177.8 cm Davida Price MD Work Phone: [facility] 10-24-2024 08:45-0500 Body mass index (BMI) [Ratio] 36.73 kg/m2 Davida Price MD Work Phone: [facility] 10-24-2024 08:45-0500 Body temperature 98.29 [degF] Davida Price MD Work Phone: [facility] 10-24-2024 08:45-0500 Body weight 116.12 kg Davida Price MD Work Phone: [facility] 10-24-2024 08:45-0500 Diastolic blood pressure 71 mm[Hg] Davida Price MD Work Phone: [facility] 10-24-2024 08:45-0500 Heart rate 100 /min Davida Price MD Work Phone: [facility] 10-24-2024 08:45-0500 SaO2% (BldA) [Mass fraction] 96 % Davida Price MD Work Phone: [facility] 10-24-2024 08:45-0500 Systolic blood pressure 113 mm[Hg] Davida Price MD Work Phone: [facility] 05-09-2024 14:19-0400 Body height 177.8 cm Cheng Staples Work Phone: [facility] 05-09-2024 14:19-0400 Body mass index (BMI) [Ratio] 38.4 kg/m2 Cheng Staples Work Phone: [facility] 05-09-2024 14:19-0400 Body weight 121.56 kg Cheng Staples Work Phone: [facility] 02-03-2024 14:52-0400 Diastolic blood pressure 70 mm[Hg] Cheng Aichholz Work Phone: [facility] 02-03-2024 14:52-0400 Heart rate 88 /min Cheng Aichholz Work Phone: [facility] 02-03-2024 14:52-0400 Respiratory rate 16 /min Cheng Aichholz Work Phone: [facility] 02-03-2024 14:52-0400 SaO2% (BldA) [Mass fraction] 98 % Cheng Aichholz Work Phone: [facility] 02-03-2024 14:52-0400 Systolic blood pressure 114 mm[Hg] Cheng Aichholz Work Phone: [facility] 02-03-2024 12:58-0400 Body height 177.8 cm Cheng Aichholz Work Phone: [facility] 02-03-2024 12:58-0400 Body weight 117.02 kg Cheng Aichholz Work Phone: [facility] 01-07-2024 11:03-0500 Body weight 117.02 kg Cheng Aichholz Work Phone: [facility] 01-07-2024 11:03-0500 Diastolic blood pressure 78 mm[Hg] Cheng Aichholz Work Phone: [facility] 01-07-2024 11:03-0500 Heart rate 95 /min Cheng Aichholz Work Phone: [facility] 01-07-2024 11:03-0500 Systolic blood pressure 120 mm[Hg] Cheng Aichholz Work Phone: [facility] 11-08-2023 15:00-0500 Body height 177.8 cm Sebastián Santillan Other [facility] 11-08-2023 15:00-0500 Body mass index (BMI) [Ratio] 36.94 kg/m2 Tondra Mapus Other [employer] Other 11-08-2023 15:00-0500 Body weight 116.8 kg Tondra Mapus Other [facility] 11-08-2023 15:00-0500 Diastolic blood pressure 77 mm[Hg] Tondra Mapus Other [facility] 11-08-2023 15:00-0500 Respiratory rate 18 /min Tondra Mapus Other [employer] Other 11-08-2023 15:00-0500 SaO2% (BldA) [Mass fraction] 95 % Tondra Mapus Other [employer] Other 11-08-2023 15:00-0500 Systolic blood pressure 121 mm[Hg] Tondra Mapus Other [facility] 08-25-2023 10:00-0400 Body height 177.8 cm Maxi John Other [employer] Other 08-25-2023 10:00-0400 Body mass index (BMI) [Ratio] 35.97 kg/m2 Maxi John Other [employer] Other 08-25-2023 10:00-0400 Body weight 113.72 kg Maxi Scovanner Other [employer] Other 08-25-2023 10:00-0400 Diastolic blood pressure 69 mm[Hg] Maxi Scovanner Other [employer] Other 08-25-2023 10:00-0400 Systolic blood pressure 104 mm[Hg] Maxi Scovanner Other [employer] Other 02-23-2023 11:00-0400 Body height 177.8 cm Amor Fernandez Other [employer] Other 02-23-2023 11:00-0400 Body mass index (BMI) [Ratio] 34.43 kg/m2 Amor Ditty Other [employer] Other 02-23-2023 11:00-0400 Body weight 108.86 kg Amor Heaventty Other [employer] Other 02-23-2023 11:00-0400 Diastolic blood pressure 68 mm[Hg] Amor Ditty Other [employer] Other 02-23-2023 11:00-0400 Systolic blood pressure 111 mm[Hg] Amor Ditty Other [employer] Other 08-25-2022 11:00-0400 Body height 177.8 cm Amor Adamsy Other [employer] Other 08-25-2022 11:00-0400 Body mass index (BMI) [Ratio] 34.15 kg/m2 Amor Heaventty Other [employer] Other 08-25-2022 11:00-0400 Body weight 107.96 kg Amor Ditty Other [employer] Other 08-25-2022 11:00-0400 Diastolic blood pressure 82 mm[Hg] Amor Ditty Other [employer] Other 08-25-2022 11:00-0400 Systolic blood pressure 134 mm[Hg] Amor Fernandez Other [facility] [employer] Other 02-06-2021 13:44-0400 Body Temperature 97.9 [degF] [facility] 02-06-2021 13:44-0400 BP Diastolic 60 mm[Hg] [facility] 02-06-2021 13:44-0400 BP Systolic 102 mm[Hg] [facility] 02-06-2021 13:44-0400 Pulse (Heart Rate) 129 /min [facility] 02-06-2021 13:44-0400 Pulse Oximetry 96 % [facility] 02-06-2021 13:44-0400 Respiratory Rate 16 /min [facility] 01-09-2021 14:15-0500 Body Temperature 97.2 [degF] [facility] 01-09-2021 14:15-0500 BP Diastolic 64 mm[Hg] [facility] 01-09-2021 14:15-0500 BP Systolic 95 mm[Hg] [facility] 01-09-2021 14:15-0500 Pulse (Heart Rate) 106 /min [facility] 01-09-2021 14:15-0500 Pulse Oximetry 97 % [facility] 01-09-2021 14:15-0500 Respiratory Rate 12 /min [facility] 12-27-2020 10:35-0500 Body Temperature 98.1 [degF] [facility] 12-27-2020 10:35-0500 BP Diastolic 73 mm[Hg] [facility] 12-27-2020 10:35-0500 BP Systolic 122 mm[Hg] [facility] 12-27-2020 10:35-0500 Pulse (Heart Rate) 108 /min [facility] 12-27-2020 10:35-0500 Pulse Oximetry 96 % [facility] 12-27-2020 10:35-0500 Respiratory Rate 18 /min [facility] 12-19-2020 14:09-0500 Body Temperature 97.81 [degF] [facility] 12-19-2020 14:09-0500 BP Diastolic 99 mm[Hg] [facility] 12-19-2020 14:09-0500 BP Systolic 146 mm[Hg] [facility] 12-19-2020 14:09-0500 Pulse (Heart Rate) 101 /min [facility] 12-19-2020 14:09-0500 Pulse Oximetry 98 % [facility] 12-19-2020 14:09-0500 Respiratory Rate 18 /min [facility] 11-21-2020 11:38-0500 Body Temperature 98.01 [degF] [facility] 11-21-2020 11:38-0500 BP Diastolic 74 mm[Hg] [facility] 11-21-2020 11:38-0500 BP Systolic 109 mm[Hg] [facility] 11-21-2020 11:38-0500 Pulse (Heart Rate) 96 /min [facility] 11-21-2020 11:38-0500 Pulse Oximetry 93 % [facility] 11-21-2020 11:38-0500 Respiratory Rate 18 /min [facility] 11-18-2020 11:38-0500 BMI (Body Mass Index) 33.21 kg/m2 [facility] 11-18-2020 11:38-0500 Body weight 105 kg [facility] 11-18-2020 11:38-0500 Height 177.8 cm [facility] Encounters Encounter Date Encounter Type Care Provider Facility Start: 08-30-2025 End: 08-30-2025 Telephone encounter Phu Ocasio MA [facility] Pharmacy Medication Management Start: 08-27-2025 End: 08-27-2025 Telephone encounter [facility] Freeman [facility] Start: 08-24-2025 End: 08-24-2025 Telephone encounter Ev Marquez CMA [facility] Start: 08-22-2025 End: 08-22-2025 Patient encounter procedure Cathy Leggett CORE MACHINE TENDER -CT Scan [facility] [place] Work Phone: Start: 08-22-2025 End: 08-22-2025 ambulatory Cheng BRITO Work Phone: [facility] Work Phone: Start: 08-16-2025 End: 08-16-2025 Telephone encounter Ev Marquez [facility] Start: 08-13-2025 End: 08-13-2025 ambulatory [facility] Comment on above: Type 2 diabetes brandon itus with pressure callus ([facility]) [E11.628, L84] (Primary Dx) Start: 08-10-2025 End: 08-10-2025 Office outpatient visit 25 minutes Art Freeman DO Work Phone: [facility] Comment on above: Type 2 diabetes brandon itus with other circulatory complication, with long-term current use of insulin ([facility]) (Primary Dx); Type 2 diabetes mellitus with foot ulcer, with long-term current use of insulin ([facility]); Benign essential HTN; Mixed hyperlipidemia due to type 2 diabetes mellitus ([facility]) ; Gastroesophageal reflux disease, unspecified whether esophagitis present; Chronic midline low back pain without sciatica; Ulcer of right foot with fat layer exposed ([facility]-H[facility]) Start: 08-10-2025 End: 08-10-2025 ambulatory [facility] Start: 07-17-2025 End: 07-17-[address] [facility] Work Phone: [facility] Medication Management Start: 07-17-2025 End: 07-17-2025 Follow-up encounter Art Freeman DO Work Phone: [facility] Comment on above: Lipid panel Start: 07-16-2025 End: 07-16-2025 Clinical Support [facility] Pharm[facility] Medication Management Comment on above: Type 2 diabetes brandon itus with other circulatory complication, with long-term current use of insulin ([facility]) (Primary Dx) Start: 07-16-2025 Non-patient / Non-visit Frederick Quintanilla MD -[facility] Work Phone: Start: 07-09-2025 End: 07-09-2025 Admission to same day surgery center Chan Quintanilla MD -Interventional Radiology Work Phone: Start: 07-09-2025 End: 07-09-2025 ambulatory Cheng J Bel Work Phone: [facility] Work Phone: Start: 07-05-2025 End: 07-06-[address] [facility] Medication Management Work Phone: [facility] Medication Management Comment on above: Type 2 diabetes brandon itus with foot ulcer, with long-term current use of insulin ([facility]) Start: 07-05-2025 End: 07-05-2025 Transitional care manage [facility] 14 day discharge Art Freeman DO Work Phone: [facility] Comment on above: Ulcer of right foot with fat layer exposed ([facility]) (Primary Dx); Type 2 diabetes mellitus with foot ulcer, with long-term current use of insulin ([facility]); Hyperlipidemia, unspecified hyperlipidemia type; Gastroesophageal reflux disease, unspecified whether esophagitis present; Peripheral artery disease Start: 07-05-2025 End: 07-05-2025 ambulatory ART Roger [facility] Start: 06-28-2025 End: 06-28-2025 Patient encounter procedure Chan Quintanilla MD -Ultrasound [facility] Start: 06-28-2025 End: 06-28-2025 ambulatory Cheng J Bel Work Phone: [facility] Work Phone: Start: 06-28-2025 End: 06-28-2025 ambulatory Cheng J Calixtohjesi Work Phone: [facility] Work Phone: Start: 06-28-2025 End: 06-28-2025 Patient encounter procedure Cathy Ramirez APRN -[facility] Work Phone: Start: 06-07-2025 End: 06-07-2025 ambulatory VIKTOR GANDHI [facility] Start: 05-22-2025 End: 05-22-2025 Telephone encounter Danielle Masters CNA [facility] Comment on above: Results Start: 05-16-2025 End: 05-16-2025 Orders Only Art Freeman DO Work Phone[facility] Comment on above: Type 2 diabetes brandon itus with foot ulcer, with long-term current use of insulin ([facility]) (Primary Dx) Start: 05-13-2025 End: 05-16-2025 Refill Art Freeman DO Work Phone[facility] Comment on above: Type 2 diabetes brandon itus with foot ulcer, with long-term current use of insulin ([facility]) Start: 05-10-2025 End: 05-10-2025 Office outpatient visit 25 minutes Art Freeman DO Work Phone: [facility] Comment on above: Type 2 diabetes brandon itus with foot ulcer, with long-term current use of insulin ([facility]); Benign essential HTN; Gastroesophageal reflux disease, unspecified whether esophagitis present; Chronic midline low back pain without sciatica; Encounter for screening for malignant neoplasm of prostate; Fatigue, unspecified type Start: 05-10-2025 End: 05-10-2025 ambulatory [facility] Start: 05-02-2025 End: 05-02-2025 ambulatory [facility] Start: 04-26-2025 End: 04-26-2025 Office outpatient new 45 minutes Art Freeman DO Work Phone: [facility] Comment on above: Benign essential HTN (Primary Dx); Type 2 diabetes mellitus with foot ulcer, with long-term current use of insulin ([facility]); Chronic midline low back pain without sciatica; Fatty liver disease, nonalcoholic; Visit for wound check; Hyperglycemia; Gastroesophageal reflux disease, unspecified whether esophagitis present Start: 04-26-2025 End: 04-26-2025 ambulatory ART FREEMAN [facility] Start: 04-24-2025 End: 04-24-2025 ambulatory SHERRI GARCIA [facility] Start: 04-24-2025 End: 04-24-2025 Patient encounter procedure Sherri Garcia CORE MACHINE TENDER-HOME OFFICE REPRESENTATIVE Work Phone: 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 2 diabetes mellitus, with muscle involvement without evidence of necrosis (CMS-HCC) (Primary Dx); 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) Start: 04-20-2025 End: 04-20-2025 ambulatory Jerome Del Toro DO Work Phone: [facility] Start: 04-18-2025 End: 04-18-2025 Telephone encounter Jerome Del Toro DO Work Phone: General Surgery Comment on above: Care Coordination (A ppeal for GPOEM denial ) Start: 04-11-2025 End: 04-11-2025 Patient encounter procedure Sherri Garcia CORE MACHINE TENDER-HOME OFFICE REPRESENTATIVE Work Phone: [facility] Comment on above: Diabetic ulcer of ri ght midfoot associated with type 2 diabetes mellitus, with muscle involvement without evidence of necrosis (CMS-HCC) (Primary Dx); History of transmetatarsal amputation of right foot (CMS-HCC); 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); Wound, open, foot with complication, left, initial encounter; Unstable ankle, right Start: 04-11-2025 End: 04-11-2025 ambulatory SHERRI GARCIA [facility] Start: 04-10-2025 End: 04-10-2025 ambulatory ART FIGUEREDO Facility:[facility] Start: 04-10-2025 End: 04-10-2025 ambulatory JEROME DEL TORO Facility:[facility] Start: 04-05-2025 End: 04-05-2025 Telephone encounter Art Figueredo DO Work Phone: Gastroenterology Comment on above: Care Coordination (G astroparesis clinic: chart review; new patient call ) Start: 03-28-2025 End: 03-28-2025 Office outpatient new 20 minutes Sherri Garcia CORE MACHINE TENDER-HOME OFFICE REPRESENTATIVE Work Phone: 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 2 diabetes mellitus, with muscle involvement without evidence of necrosis (CMS-HCC) (Primary Dx); History of transmetatarsal amputation of right foot (CMS-HCC); Visit for wound check Start: 03-28-2025 End: 03-28-2025 ambulatory SHERRI GARCIA [facility] Start: 03-04-2025 End: 03-04-2025 Emergency department patient visit NO PCP NO PCP [facility] Start: 11-21-2024 End: 11-21-2024 Telephone encounter Davida Price MD Work Phone: Gastroenterology Comment on above: 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 (Dr Yoon's office/request for office note) Start: 10-24-2024 End: 10-24-2024 Patient encounter procedure Davida Price MD Work Phone: Gastroenterology Comment on above: Gastroparesis (Prima ry Dx) Start: 10-24-2024 End: 10-24-2024 ambulatory DAVIDA PRICE Facility:[facility] Start: 06-22-2024 Telephone encounter Art Figueredo DO Work Phone: Gastroenterology Start: 06-12-2024 End: 06-12-2024 ambulatory Cheng Staples Work Phone: [facility] Work Phone: Start: 06-12-2024 End: 06-12-2024 Patient encounter procedure Cheng Staples Work Phone: [facility] [place] Work Phone: Start: 06-06-2024 End: 06-06-2024 ambulatory Cheng Staples Work Phone: [facility] Work Phone: Start: 06-06-2024 End: 06-06-2024 Patient encounter procedure Cheng Chaosenania Work Phone: [facility] [place] Work Phone: Start: 05-09-2024 End: 05-09-2024 Patient encounter procedure Cheng Chaojesi Work Phone: [facility] Work Phone: Start: 03-13-2024 End: 03-13-2024 ambulatory CHENG BEL Not Available Start: 02-03-2024 Non-patient / Non-visit Cheng Rachana kavitha Work Phone: [facility] Work Phone: Start: 02-03-2024 End: 02-03-2024 Admission to same day surgery center Cheng Chaojesi Work Phone: [facility] Work Phone: Start: 02-03-2024 End: 02-03-2024 ambulatory Cheng Dasilva Calixtoameliejesi Work Phone: [facility] Work Phone: Start: 01-07-2024 End: 01-07-2024 Patient encounter procedure Cheng Bel Work Phone: [facility] Work Phone: Start: 01-06-2024 End: 01-06-2024 ambulatory CHENG CELESTEHOLZ Not Available Start: 01-06-2024 Bamboo flowsheet Cheng Bel RN EMERGENCY ROOM Work Phone: [facility] Start: 01-06-2024 Bamboo flowsheet Cheng Celesteholz RN EMERGENCY ROOM Work Phone: [facility] Start: 11-25-2023 End: 11-25-2023 ambulatory Maxi John Other [employer] Other Start: 11-25-2023 Office outpatient vi sit 15 minutes Maxi John [facility] Start: 11-25-2023 Patient encounter procedure Cheng Chaojesi Work Phone: [facility]- Start: 11-09-2023 End: 11-09-2023 ambulatory Tondra Santillan Other [employer] Other Start: 11-09-2023 Telephone encounter Tondra Lauryus [facility] Start: 11-08-2023 End: 11-08-2023 Discharged Recurring Cheng Bel Work Phone: [facility] Work Phone: Start: 11-08-2023 End: 11-08-2023 ambulatory Cheng Dasilva Calixtoameliejesi Work Phone: [employer] Other Start: 11-08-2023 FQ visit new patient Sebastián Santillan [facility] Start: 11-08-2023 End: 11-08-2023 Patient encounter procedure Cheng Chaosenania Work Phone: [facility] Work Phone: Start: 11-02-2023 End: 11-02-2023 ambulatory CHENG CALIXTOAmelieJESI Not Available Start: 09-15-2023 End: 09-15-2023 ambulatory Iva Fitt Other [employer] Other Start: 09-15-2023 Telephone encounter Iva Fitt [facility] Start: 09-13-2023 End: 09-13-2023 ambulatory Iva Fitt Other [employer] Other Start: 09-13-2023 Telephone encounter Iva Fitt [facility] Start: 08-25-2023 End: 08-25-2023 ambulatory Maxi John Other [employer] Other Start: 08-25-2023 Office outpatient vi sit 15 minutes Maxi John [facility] Start: 03-18-2023 End: 03-19-2023 ambulatory GIROLAGILBERTO TROTTI Facility:[facility] Start: 02-23-2023 End: 02-23-2023 ambulatory Amor Heavenreginaldjose cruz Other [employer] Other Start: 02-23-2023 Patient encounter procedure Amor Fernandez [facility] Start: 08-25-2022 End: 08-25-2022 ambulatory Amor Heavenreginaldjose cruz Other [employer] Other Start: 08-25-2022 Patient encounter procedure Amor Fernandez [facility] Start: 04-02-2021 End: 04-02-2021 [facility]ulatory [facility] Start: 02-06-2021 End: 02-06-2021 Patient encounter procedure MARCELLA MARTINEZ MANAV [facility] Start: 02-06-2021 End: 02-06-2021 Patient encounter procedure Marcella Bell Work Phone: [facility] Comment on above: Foot abscess, left ( Primary Dx) Start: 01-29-2021 End: 01-29-2021 Orders Only Tsering Silvestre Work Phone: [facility] Start: 01-24-2021 End: 01-25-2021 Patient encounter procedure LEANNERachana MARTINES DILIP [facility] Start: 01-24-2021 End: 01-24-2021 Patient encounter procedure Leanne Millicent [place] Work Phone: [facility] Comment on above: Foot abscess, left ( Primary Dx); Charcot foot due to diabetes mellitus (HCC); MSSA (methicillin susceptible Staphylococcus aureus) infection Start: 01-24-2021 End: 01-24-2021 Office outpatient visit 15 minutes Leanne Maxwellusman Dilip Work Phone: [facility] Comment on above: Subacute osteomyelit is of left foot (HCC) (Primary Dx) Start: 01-09-2021 End: 01-10-2021 Patient encounter procedure [facility] Start: 01-09-2021 End: 01-09-2021 Subsequent hospital visit by physician Leanne Cherry Work Phone: [facility] Comment on above: Arrived Start: 01-09-2021 End: 01-09-2021 Office outpatient visit 25 minutes Leanne Millicent Reeceeler Work Phone: [facility] Comment on above: Charcot's joint of a nkle, unspecified laterality (Primary Dx) Start: 01-09-2021 End: 01-09-2021 Patient encounter procedure Marcella Bell Work Phone: [facility] Comment on above: Subacute osteomyelit is of left foot (HCC) (Primary Dx) Start: 12-27-2020 End: 12-27-2020 Patient encounter procedure [facility] Start: 12-27-2020 End: 12-27-2020 Office outpatient visit 15 minutes Leannerachana Reeceeler Work Phone: [facility] Comment on above: Subacute osteomyelit is of left foot (HCC) (Primary Dx); Charcot's joint of ankle, unspecified laterality Start: 12-19-2020 End: 12-19-2020 Patient encounter procedure MARCELLA MARTINEZ MANAV [facility] Start: 12-19-2020 End: 12-19-2020 Patient encounter procedure Marcella Bell Work Phone: [facility] Comment on above: Subacute osteomyelit is of left foot (HCC) (Primary Dx) Start: 11-20-2020 End: 11-20-2020 Documentation procedure Phu Buck [facility] Start: 11-20-2020 Patient encounter procedure PHU BUCK [facility] Start: 11-05-2020 End: 11-21-2020 Evaluation and management of inpatient PROVIDER NOT IN SYSTEM [facility] Start: 11-05-2020 End: 11-21-2020 Evaluation and management of inpatient Generic [facility] Work Phone: [facility] Comment on above: Other [...] End: 12-27-2018 Patient encounter procedure JAVI FIGUEROA Facility:[facility] Procedures Date Procedure Procedure Detail Performing Clinician Start: 08-22-2025 CT angiography of head Cheng OLMEDO C Work Phone: Start: 08-22-2025 CT angiography of neck vessels Cheng knapp RN EMERGENCY ROOM-C Work Phone: Start: 08-10-2025 Adult depression screening [...] Phone: Start: 04-24-2025 NURSING COMMUNICATION Sherri Garcia CORE MACHINE TENDER-HOME OFFICE REPRESENTATIVE Work Phone: Start: 04-24-2025 Other immobilization, pressure, and attention to wound Sherri Garcia CORE MACHINE TENDER-HOME OFFICE REPRESENTATIVE Work Phone: Start: 04-11-2025 NURSING COMMUNICATION Sherri Garcia CORE MACHINE TENDER-HOME OFFICE REPRESENTATIVE Work Phone: Start: 04-11-2025 Other immobilization, pressure, and attention to wound Sherri Garcia CORE MACHINE TENDER-HOME OFFICE REPRESENTATIVE Work Phone: Start: 03-28-2025 Other immobilization, pressure, and attention to wound Sherri Garcia CORE MACHINE TENDER-HOME OFFICE REPRESENTATIVE Work Phone: Start: 06-12-2024 Radionuclide gastric emptying study Cheng Staples Work Phone: Start: 06-06-2024 Computed tomography of abdomen and pelvis with contrast Cheng Staples Work Phone: Start: 05-01-2024 Lipid 1996 panel - Serum or Plasma Nicolas Price MD Work Phone: Start: 05-01-2024 Microalbumin [Mass/volume] in Urine by Test strip Sherri Garcia CORE MACHINE TENDER-HOME OFFICE REPRESENTATIVE Work Phone: Start: 02-03-2024 Esophagogastroduodenoscopy Cheng Staples Work Phone: Start: 01-09-2021 X-ray of left ankle Leanne Sabry Dilip Work Phone: Start: 01-09-2021 X-ray of left foot Leanne Sabry [place] Work Phone: Start: 12-27-2020 Aerobic microbial culture Leanne Sabusman Nikita ler Work Phone: Start: 12-27-2020 Bacteria identified in Bone by Aerobe culture Leanne Sabry Dilip Work Phone: Start: 12-27-2020 BIOPSY Leanne Sabry [place] Work Phone: Start: 11-21-2020 Glucose [Mass/volume] in Blood [facility] alison [place] Work Phone: Start: 11-21-2020 Glucose [Mass/volume] in Blood [facility] alison [place] Work Phone: Start: 11-21-2020 [facility]/volume] [facility] [place] Work Phone: Start: 11-21-2020 Basic metabolic 2000 panel - Serum or Plasma [employer] Work Phone: Start: 11-21-2020 Complete blood count (hemogram) panel - Blood by Automated count [employer] Work Phone: Start: 11-21-2020 Magnesium [Mass/volume] in Serum or Plasma [employer] Work Phone: Start: 11-20-2020 Glucose [Mass/volume] in Blood [facility] alison Arora Work Phone: Start: 11-20-2020 Glucose [Mass/volume] in Blood [facility] alison Arora Work Phone: Start: 11-20-2020 Glucose [Mass/volume] in Blood [facility] alison Arora Work Phone: Start: 11-20-2020 Glucose [Mass/volume] in Blood Flako Pinedo Work Phone: Start: 11-20-2020 Basic metabolic 2000 panel - Serum or Plasma [employer] Work Phone: Start: 11-20-2020 C reactive protein [Mass/volume] in Serum or Plasma Jai Kumar Work Phone: Start: 11-20-2020 Complete blood count (hemogram) panel - Blood by Automated count [employer] Work Phone: Start: 11-20-2020 Erythrocyte sedimentation rate by Westergren method Jai Hodgen Work Phone: Start: 11-20-2020 Magnesium [Mass/volume] in Serum or Plasma [employer] Work Phone: Start: 11-19-2020 Glucose [Mass/volume] in Blood Flako Pinedo Work Phone: Start: 11-19-2020 Glucose [Mass/volume] in Blood Flako Pinedo Work Phone: Start: 11-19-2020 Glucose [Mass/volume] in Blood Flako Pinedo Work Phone: Start: 11-19-2020 Glucose [Mass/volume] in Blood Flako Pinedo Work Phone: Start: 11-19-2020 Basic metabolic 2000 panel - Serum or Plasma [employer] Work Phone: Start: 11-19-2020 Complete blood count (hemogram) panel - Blood by Automated count [employer] Work Phone: Start: 11-19-2020 Magnesium [Mass/volume] in Serum or Plasma [employer] Work Phone: Start: 11-18-2020 Glucose [Mass/volume] in [...] 11-18-2020 INCISION AND DRAINAGE FOOT/ANKLE Leannerachana gonzales [place] Work Phone: Start: 11-18-2020 Glucose [Mass/volume] in Blood Flako Pinedo Work Phone: Start: 11-18-2020 Basic metabolic 2000 panel - Serum or Plasma [employer] Work Phone: Start: 11-18-2020 C reactive protein [Mass/volume] in Serum or Plasma Leanne Cherry Work Phone: Start: 11-18-2020 Complete blood count (hemogram) panel - Blood by Automated count [employer] Work Phone: Start: 11-18-2020 Erythrocyte sedimentation rate by Westergren method Leanne Cherry Work Phone: Start: 11-18-2020 Magnesium [Mass/volume] in Serum or Plasma [employer] Work Phone: Start: 11-17-2020 Glucose [Mass/volume] in [...] metabolic 2000 panel - Serum or Plasma [employer] Work Phone: Start: 11-17-2020 Complete blood count with white cell differential, automated Braeden Conte Work Phone: Start: 11-17-2020 Complete blood count with white cell differential, manual Braeden Conte Work Phone: Start: 11-17-2020 Magnesium [Mass/volume] in Serum or Plasma [employer] Work Phone: Start: 11-16-2020 Glucose [Mass/volume] in Blood Flako Pinedo Work Phone: Start: 11-16-2020 Glucose [Mass/volume] in Blood Flako Pinedo Work Phone: Start: 11-16-2020 Glucose [Mass/volume] in Blood Flako Pinedo Work Phone: Start: 11-16-2020 Glucose [Mass/volume] in Blood Flako Pinedo Work Phone: Start: 11-16-2020 Basic metabolic 2000 panel - Serum or Plasma [employer] Work Phone: Start: 11-16-2020 Complete blood count (hemogram) panel - Blood by Automated count [employer] Work Phone: Start: 11-16-2020 Erythrocyte sedimentation rate by Westergren method Braeden Conte Work Phone: Start: 11-16-2020 Magnesium [Mass/volume] in Serum or Plasma [employer] Work Phone: Start: 11-15-2020 Glucose [Mass/volume] in Blood Flako Pinedo Work Phone: Start: 11-15-2020 X-ray of left foot Braeden Conte Work Phone: Start: 11-15-2020 Glucose [Mass/volume] in Blood Flako Pinedo Work Phone: Start: 11-15-2020 Glucose [Mass/volume] in Blood Flako Pinedo Work Phone: Start: 11-15-2020 Ct abdomen & pelvis w/o contrast material [employer] Work Phone: Start: 11-15-2020 Glucose [Mass/volume] in Blood Flako Pinedo Work Phone: Start: 11-15-2020 Basic metabolic 2000 panel - Serum or Plasma [employer] Work Phone: Start: 11-15-2020 Complete blood count (hemogram) panel - Blood by Automated count [employer] Work Phone: Start: 11-15-2020 Magnesium [Mass/volume] in Serum or Plasma [employer] Arias Work Phone: Start: 11-14-2020 Glucose [Mass/volume] in Blood Flako Pinedo Work Phone: Start: 11-14-2020 Glucose [Mass/volume] in Blood Flako Pinedo Work Phone: Start: 11-14-2020 Glucose [Mass/volume] in Blood Flako Pinedo Work Phone: Start: 11-14-2020 Glucose [Mass/volume] in Blood Flako Pinedo Work Phone: Start: 11-14-2020 Basic metabolic 2000 panel - Serum or Plasma [employer] Ari[employer] Work Phone: Start: 11-14-2020 Complete blood count (hemogram) panel - Blood by Automated count [employer] Ari[employer] Work Phone: Start: 11-14-2020 Magnesium [Mass/volume] in Serum or Plasma [employer] Ari[employer] Work Phone: Start: 11-13-2020 Glucose [Mass/volume] [...] metabolic 2000 panel - Serum or Plasma [employer] Work Phone: Start: 11-13-2020 Complete blood count (hemogram) panel - Blood by Automated count [employer] Work Phone: Start: 11-13-2020 Magnesium [Mass/volume] in Serum or Plasma [employer] Work Phone: Start: 11-12-2020 Glucose [Mass/volume] in Blood Flako Pinedo Work Phone: Start: 11-12-2020 Glucose [Mass/volume] in Blood Flako Pinedo Work Phone: Start: 11-12-2020 Glucose [Mass/volume] in Blood Flako Pinedo Work Phone: Start: 11-12-2020 COVID-19/INFLUENZA A,B MOLECULAR [employer] Work Phone: Start: 11-12-2020 Glucose [Mass/volume] in Blood Flako Pinedo Work Phone: Start: 11-12-2020 Basic metabolic 2000 panel - Serum or Plasma [employer] Work Phone: Start: 11-12-2020 Complete blood count (hemogram) panel - Blood by Automated count [employer] Work Phone: Start: 11-12-2020 Magnesium [Mass/volume] in Serum or Plasma [employer] Work Phone: Start: 11-11-2020 Magnesium [Mass/volume] in [...] metabolic 2000 panel - Serum or Plasma [employer] Work Phone: Start: 11-11-2020 Complete blood count (hemogram) panel - Blood by Automated count [employer] Work Phone: Start: 11-11-2020 Magnesium [Mass/volume] in Serum or Plasma [employer] Work Phone: Start: 2020 Glucose [Mass/volume] in Blood Flako Pinedo Work Phone: Start: 2020 Glucose [Mass/volume] in Blood Flako Pinedo Work Phone: Start: 2020 Glucose [Mass/volume] in Blood Flako Pinedo Work Phone: Start: 2020 Glucose [Mass/volume] in Blood Flako Pinedo Work Phone: Start: 2020 Basic metabolic 2000 panel - Serum or Plasma [employer] Work Phone: Start: 2020 Complete blood count (hemogram) panel - Blood by Automated count [employer] Work Phone: Start: 2020 Magnesium [Mass/volume] in Serum or Plasma [employer] Work Phone: Start: 2020 End: 2020 Glucose [...] metabolic 2000 panel - Serum or Plasma [employer] Work Phone: Start: 11-09-2020 Complete blood count (hemogram) panel - Blood by Automated count [employer] Work Phone: Start: 11-09-2020 Magnesium [Mass/volume] in Serum or Plasma [employer] Work Phone: Start: 11-09-2020 Glucose [Mass/volume] in Blood Flako Pinedo Work Phone: Start: 11-08-2020 Glucose [Mass/volume] in Blood Flako Pinedo Work Phone: Start: 11-08-2020 Glucose [Mass/volume] in Blood Flako Pinedo Work Phone: Start: 11-08-2020 Glucose [Mass/volume] in Blood Flako Pinedo Work Phone: Start: 11-08-2020 Glucose [Mass/volume] in Blood Flako Pinedo Work Phone: Start: 11-08-2020 Basic metabolic 2000 panel - Serum or Plasma [employer] Work Phone: Start: 11-07-2020 Glucose [Mass/volume] in Blood Flako Pinedo Work Phone: Start: 11-07-2020 Glucose [Mass/volume] in Blood Flako Pinedo Work Phone: Start: 11-07-2020 Aerobic microbial culture Mady Domk a Work Phone: Start: 11-07-2020 Glucose [Mass/volume] in Blood Flako Pinedo Work Phone: Start: 11-07-2020 Complete blood count with white cell differential, automated [employer] Work Phone: Start: 11-07-2020 Complete blood count with white cell differential, manual [employer] Work Phone: Start: 11-07-2020 Bacteria identified in [...] count with white cell differential, manual Flako Pindeo Work Phone: Start: 11-06-2020 Lactate [Moles/volume] in [...] Phone: Start: 12-06-2019 Ophthalmic examination and evaluation [facility] Plan of Treatment Date Care Activity Detail Author Start: 01-04-2033 DTaP,Tdap and Td Vaccines (2 - Td or Tdap) DTaP,Tdap and Td Vaccines (2 - Td or Tdap) [facility] [employer] [facility] Start: 01-04-2033 Urine microalbumin profile DTaP,Tdap,Td Vaccine (2 - Td or Tdap) [facility] Start: 05-01-2029 Lipid panel Lipid Screening [facility] Start: 05-01-2027 Diabetes Screening Diabetes Screening [facility] Start: 08-13-2026 Adult BMI Screening Adult BMI Screening [employer] Start: 08-10-2026 Adult BMI Screening Adult BMI Screening [employer] Start: 08-10-2026 Depression Screening Depression Screening [employer] Start: 08-10-2026 Statin Use: Cardiovascular [facility]atin [facility] Start: 08-10-2026 Statin Use: Diabetic Statin Use: Diabetic [employer] Start: 08-10-2026 Tobacco Screening Tobacco Screening [employer] Start: 07-16-2026 Adult BMI Screening [...] 05-10-2026 Statin Use: Cardiovascular Statin Use: Cardiovascular [facility] Start: 05-10-2026 Statin Use: Diabetic [...] Start: 11-09-2025 Glaucoma screening Diabetes: Retinopathy Screening [facility] Start: 09-21-2025 End: 09-21-2025 Clinical Support 09/21/2025 8:30 AM EDT Clinical Support [facility] [address] [place] [address] [place] [phone] Art Freeman DO [address] [facility], [address], [place] [address] [facility] Start: 08-30-2025 End: 08-30-2025 Clinical Support 08/30/2025 9:30 AM EDT Clinical Support [facility] Medication Management [address] [place] [address] [facility] Start: 08-13-2025 End: 08-13-2025 Clinical Support 08/13/2025 8:00 AM EDT Clinical Support [facility] [address] [place] [address] [facility] Start: 08-10-2025 End: 08-10-2025 Patient encounter procedure 08/10/2025 10:00 AM EDT Office Visit [facility] [address] [place] [phone] Art Freeman, [address] [facility], [facility] [address], [place] [address] [facility] Start: 07-23-2025 Influenza vaccination [facility] [employer] Start: 07-16-2025 End: 07-16-2025 Clinical Support 07/16/2025 8:00 AM EDT Clinical Support [facility] Medication Management [address] [place] [address] [facility] Start: 07-11-2025 Hemoglobin A1c measurement HbA1C [facility] Start: 07-09-2025 End: 07-09-2025 [facility] Start: 05-22-2025 End: 05-22-2025 Admission to same day surgery center 05/22/2025 2:00 PM EDT [facility] General Surgery [address] [address] [address] [place], [place] [address] 4wk post op General Surgery Comment on above: 4wk post op Start: 05-10-2025 End: 05-10-2025 Clinical Support 05/10/2025 9:30 AM EDT Clinical Support [facility] [address] [place] [phone] Art Freeman, DO [address] [facility], [address], [address] [place], [place] [id number] [facility] Start: 05-09-2025 End: 05-09-2025 Patient encounter procedure 05/09/2025 10:40 AM EDT Office Visit [facility] [address] [place] [phone] Kaitlynn Sherri Gurvinder, CORE MACHINE TENDER-HOME OFFICE REPRESENTATIVE [address] [id number] [facility] Start: 05-01-2025 Hepatitis B screening Urine Albumin:Creatinine Ratio [facility] Start: 05-01-2025 Urine screening for protein Urine Microalbumin [facility] Start: 04-26-2025 End: 04-26-2025 Patient encounter procedure 04/26/2025 2:00 PM EDT Office Visit [facility] [address] [place] [address] [place] [phone] Art Freeman, [address], [facility] [address], [place] [address] [facility] Start: 04-26-2025 End: 04-26-2026 XR Lumbar spine Views W right bending and W left bending X-ray spine lumbar complete including flexion and extension 6+ views Imaging Routine Chronic midline low back pain without sciatica Expected: 04/26/2025, Expires: 04/26/2026 [facility] Work Phone: Comment on above: Expected: 04/26/2025, Expires: Start: 04-25-2025 End: 04-25-2025 Patient encounter procedure 04/25/2025 7:30 AM EDT Appointment [facility] [address] [place] [address] Jerome Del [place]o, [place] [address] Diabetic gastroparesis (HCC) [facility] Comment on above: Diabetic gastroparesis (HCC) Start: 04-24-2025 End: 04-24-2025 Patient encounter procedure 04/24/2025 10:30 AM EDT Office Visit [facility] [address] [place] [address] Sherri Garcia, CORE MACHINE TENDER-HOME OFFICE REPRESENTATIVE [address] [place] [address] [facility] [place] Start: 04-11-2025 End: 04-11-2025 Patient encounter procedure 04/11/2025 10:40 AM EDT Office Visit [facility] [place] [address] [place] [address] Sherri Garcia, CORE MACHINE TENDER-HOME OFFICE REPRESENTATIVE [address] [place] [address] [facility] [place] Start: 04-10-2025 End: 04-10-2025 Patient encounter procedure Gastroenterology Comment on above: New gp consult/empties Start: 11-22-2024 Medicare Advantage Annual Wellness Visit Medicare Advantage Annual Wellness Visit [facility] Start: 07-23-2024 Covid-19 Vaccine ( season) Covid-19 Vaccine ( season) [facility] Start: 07-23-2024 Influenza vaccination Influenza Vaccine (#1) [facility] Start: 05-21-2024 Influenza vaccination Influenza Vaccine (#1) [facility] Comment on above: Postponed from 07/23/2023 (Patient Refus ed) Start: 02-03-2024 [facility] Start: 01-21-2024 Screening for malignant neoplasm of colon Colorectal Cancer Screening [facility] Comment on above: Postponed from 1966 (Other Medical Reasons) Start: 01-06-2024 End: 01-06-2024 Patient encounter procedure 01/06/2024 4:30 PM EST Office Visit [facility] [address] [place] [address] Cheng Staples NP [address] [place] [address] Arrived [facility] Comment on above: Arrived Start: 10-20-2023 Hemoglobin A1c measurement Diabetes: Hemoglobin A1C [facility] Start: 04-17-2022 Diabetic foot examination Diabetic Foot Exam [facility] Start: 2021 Prostate specific antigen measurement Prostate Cancer Screening Discussion [facility] Start: 05-06-2021 HbA1c (Bld) [Mass fraction] A1C [facility] Start: 03-06-2021 End: 03-06-2021 Office Visit 03/06/2021 Office Visit Wound Care Marcella Bell MD [address] [place] [address] [phone] [facility] Start: 02-14-2021 End: 02-14-2021 Office Visit 02/14/2021 Office Visit Wound Care Leanne Cherry, ELIE [address] [place] [address] [phone] [facility] Start: 02-06-2021 End: 02-06-2021 Office Visit 02/06/2021 Office Visit Wound Care Marcella Bell MD [address] [place] [address] [phone] [facility] Start: 01-24-2021 End: 01-24-2021 Office Visit 01/24/2021 Office Visit Wound Care Leanne Cherry DPM [address] [place] [address] [phone] [facility] Start: 01-09-2021 End: 01-09-2021 Office Visit [facility] Start: 12-27-2020 End: 12-27-2020 Office Visit 12/27/2020 Office Visit Wound Care Leanne Cherry, DPMeghann [address] [place] [address] [phone] [facility] Start: 12-19-2020 End: 12-19-2020 Office Visit 12/19/2020 Office Visit Wound Care Marcella Bell MD [address] [place] [address] [phone] [facility] Start: 12-06-2020 Ophthalmic examination and evaluation Ophthalmology Exam [facility] Start: 07-23-2020 Influenza vaccination given Sequential Influenza Vaccine (#1) [facility] Start: 2016 Administration of herpes zoster vaccine Zoster Vaccines (1 of 2) [facility] Start: 2016 Administration of varicella zoster vaccine Zoster (Shingles) Vaccine (1 of 2) [facility] Start: 2016 Pneumococcal Vaccine: 50+ (1 of 1 - PCV) Pneumococcal Vaccine: 50+ (1 of 1 - PCV) [facility] Start: 2016 Screening for malignant neoplasm of colon [facility] Start: 2016 Shingrix Vaccine (1 of 2) Shingrix Vaccine (1 of 2) [facility] Start: 2011 Prostate specific antigen measurement Prostate Cancer Screening Discussion [facility] Start: 2011 Screening for malignant neoplasm of colon [facility] Start: 1985 Hepatitis B Vaccine (1 of 3 - 19+ 3-dose series) Hepatitis B Vaccine (1 of 3 - 19+ 3-dose series) [facility] Start: 1985 Pneumococcal Vaccine: 50+ (1 of 2 - PCV) Pneumococcal Vaccine: 50+ (1 of 2 - PCV) [facility] Start: 1985 Urine screening for protein Diabetes: Urine Protein Screening [facility] Start: 1984 Adult BMI Follow Up Plan Adult BMI Follow Up Plan [facility] [employer] [facility] Start: 1984 Annual PCP Team Chronic Disease Visit Annual PCP Team Chronic Disease Visit [facility] Start: 1984 Anxiety Screening Anxiety Screening [facility] Start: 1984 Depression Screening Depression Screening [facility] Start: 1984 Hepatitis B surface antibody level LDL Cholesterol [facility] Start: 1984 Hepatitis C antibody, confirmatory test Hepatitis C Screening [facility] Start: 1984 Hepatitis C screening Hepatitis C Screening [facility] [facility] Start: 1984 HIV screening HIV Screening [facility] Start: 1982 COVID-19 Vaccine (1 of 2) COVID-19 Vaccine (1 of 2) [facility] Start: 1981 HIV screening HIV Screening [facility] Start: 1978 Adolescent depression screening assessment [facility] Start: 1976 Albumin DL <= 20 mg/L (U) [Mass/Vol] Urine Microalbumin [facility] Start: 1976 Diabetic foot examination [facility] Start: 1976 Glaucoma screening Dilated Retinal Exam [facility] Start: 1976 Ophthalmic examination and evaluation Ophthalmology Exam [facility] Start: 1969 History and physical examination, annual for health maintenance Wellness Visit [facility] Start: 1966 Glaucoma screening Diabetic Ophthalmology Exam [facility] Start: 1966 Medicare Annual Wellness (AWV) Medicare Annual Wellness (AWV) [facility] Start: 1966 Prostate specific antigen measurement PSA Level [facility] Start: 1966 Screening for malignant neoplasm of colon [facility] Start: 1966 Tetanus vaccination Tetanus: Every 10yrs [facility] End: 11-05-2020 12 lead ECG ECG 12 Lead ECG Routine Once for 1 Occurrences starting 11/05/2020 until 11/05/2020 [facility] Comment on above: Once for 1 Occurrences starting 11/05/20 until 11/05/2020 Aerobic microbial culture Wound Aerobic Culture Microbiology Routine Subacute osteomyelitis of left foot (HCC) Charcot's joint of ankle, unspecified laterality 12/27/2020 12:24 PM EST [facility] Bacteria identified Aer cx Nom (Bone) [facility] Bacteria identified Anaer cx Nom (Unsp spec) [facility] End: 04-26-2026 CBC W Auto Differential panel - Blood CBC auto differential Lab Routine Type 2 diabetes mellitus with foot ulcer, with long-term current use of insulin ([facility]) 1 Occurrences starting 04/26/2025 until 04/26/2026 [facility] [employer] [facility] Comment on above: 1 Occurrences starting 04/26/2025 until 04/26/2026 End: 04-26-2026 Comprehensive metabolic 2000 panel - Serum or Plasma Comprehensive metabolic panel Lab Routine Type 2 diabetes mellitus with foot ulcer, with long-term current use of insulin ([facility]) Fatty liver disease, nonalcoholic 1 Occurrences starting 04/26/2025 until 04/26/2026 [facility] Comment on above: 1 Occurrences starting 04/26/2025 until 04/26/2026 CT angiography of head [facility] CT angiography of ne ck vessels [facility] End: 05-10-2026 Cyanocobalamin vitamin b-12 Vitamin B12 Lab Routine Fatigue, unspecified type 1 Occurrences starting 05/10/2025 until 05/10/2026 [facility] Comment on above: 1 Occurrences starting 05/10/2025 until 05/10/2026 End: 12-19-2021 DRESSING Dressing Procedures Routine Subacute osteomyelitis of left foot (HCC) 1 Occurrences starting 12/19/2020 until 12/19/2021 [facility] Comment on above: 1 Occurrences starting 12/19/2020 until 12/19/2021 End: 01-09-2022 DRESSING Dressing Procedures Routine Subacute osteomyelitis of left foot (HCC) 1 Occurrences starting 01/09/2021 until 01/09/2022 [facility] Comment on above: 1 Occurrences starting 01/09/2021 until 01/09/2022 End: 02-06-2022 DRESSING Dressing Procedures Routine Foot abscess, left 1 Occurrences starting 02/06/2021 until 02/06/2022 [facility] Comment on above: 1 Occurrences starting 02/06/2021 until 02/06/2022 End: 04-26-2026 Hemoglobin A1c/Hemoglobin.total in Blood Hemoglobin A1c Lab Routine Type 2 diabetes mellitus with foot ulcer, with long-term current use of insulin ([facility]) 1 Occurrences starting 04/26/2025 until 04/26/2026 [facility] [employer] [facility] Comment on above: 1 Occurrences starting 04/26/2025 until 04/26/2026 End: 07-05-2026 Lipid panel Lipid panel Lab Routine Type 2 diabetes mellitus with foot ulcer, with long-term current use of insulin (CMS-HCC) Hyperlipidemia, unspecified hyperlipidemia type 1 Occurrences starting 07/05/2025 until 07/05/2026 [employer] Work Phone: Comment on above: 1 Occurrences starting 07/05/2025 until 07/05/2026 End: 05-10-2026 Magnesium [Mass/volume] in Serum or Plasma Magnesium Lab Routine Fatigue, unspecified type 1 Occurrences starting 05/10/2025 until 05/10/2026 [employer] Comment on above: 1 Occurrences starting 05/10/2025 until 05/10/2026 Patient [facility] Work Phone: Patient referral [facility] Work Phone: End: 05-10-2026 Prostatic specific antigen screen Prostatic specific antigen screen Lab Routine Encounter for screening for malignant neoplasm of prostate 1 Occurrences starting 05/10/2025 until 05/10/2026 [employer] Work Phone: Comment on above: 1 Occurrences starting 05/10/2025 until 05/10/2026 Radionuclide gastric emptying study [facility] End: 05-10-2026 Testosterone, Total and Free, S Testosterone, Total and Free, S Lab Routine Fatigue, unspecified type 1 Occurrences starting 05/10/2025 until 05/10/2026 [employer] Comment on above: 1 Occurrences starting 05/10/2025 until 05/10/2026 End: 05-10-2026 Vitamin D 25 hydroxy Vitamin D 25 hydroxy Lab Routine Fatigue, unspecified type 1 Occurrences starting 05/10/2025 until 05/10/2026 [employer] Comment on above: 1 Occurrences starting 05/10/2025 until 05/10/2026 Wound Anaerobic Culture Wound An aerobic Culture Microbiology Routine Subacute osteomyelitis of left foot (HCC) Charcot's joint of ankle, unspecified laterality 12/27/2020 12:24 PM EST [facility] End: 01-24-2022 X-ray of left foot XR Foot Left 3+ Views (Standard) Imaging Routine Subacute osteomyelitis of left foot (HCC) 1 Occurrences starting 01/24/2021 until 01/24/2022 [facility] Comment on above: 1 Occurrences starting 01/24/2021 until 01/24/2022 X-ray of left foot XR Foot Left 3+ Views (Standard) Imaging Routine Subacute osteomyelitis of left foot (HCC) 01/24/2021 2:27 PM EST [facility] Immunizations Immunization Date Immunization Notes Care Provider Emeli cardenas 01-04-2023 tetanus toxoid, redu sunny diphtheria toxoid, and acellular pertussis vaccine, adsorbed Cheng Staples RN EMERGENCY ROOM Work Phone: [facility] Payers Date Payer Category Payer Self-pay [id number] 2023 Medicare (Managed Care) [employer] [place] [id number] 2023 Medicare HMO [employer] MEDICARE [id number] 2023 Private Health Insurance [id number] 2.16.840.1.052893.19 2023 Unknown [id number] .16.840.1.189475.19 2023 Unknown [employer] [id number] 2023-Present [address] [place] [address] 1.2.840.571588.1.13.693.2. 7.3.792521.315 2021 Medicare 2019 Medicare [id number] 2019 Medicare [id number] [id number]. 7.3.525579.315 1966 Unknown [id number] 2.16.840.1.061012.3.579.2. 647 1966 Unknown [id number] 2.16.840.1.290232.3.579.2. 903 1966 Unknown [id number] 2.16.840.1.573524.3.579.2. 903 1966 Unknown [id number] 2.16.840.1.448272.3.579.2. 903 1966 Unknown [id number] 2.16.840.1.406723.3.579.2. 903 1966 Unknown [id number] 2.16.840.1.727909.3.579.2. 903 1966 Unknown [id number] 2.16.840.1.464238.3.579.2. 903 1966 Unknown [id number] 2.16.840.1.568710.3.579.2. 903 1966 Unknown [id number] 2.16.840.1.860622.3.579.2. 903 1966 Unknown [id number] 2.16.840.1.117395.3.579.2. 903 1966 Unknown [id number] 2.16.840.1.476215.3.579.2. 903 1966 Unknown [id number] 2.16.840.1.884612.3.579.2. 903 1966 Unknown [id number] 2.16.840.1.983037.3.579.2. 903 1966 Unknown [id number] 2.16.840.1.764767.3.579.2. 196 1966 Unknown [id number] 2.16.840.1.979237.3.579.2. 175 1966 Unknown [id number] 2.16.840.1.120499.3.579.2. 593 1966 Unknown [id number] 2.16.840.1.881006.3.579.2. 1259 1966 Unknown [id number] 2.16.840.1.680252.3.579.2. 1259 1966 Unknown [id number] 2.16.840.1.884571.3.579.2. 1259 1966 Unknown [id number] 2.16.840.1.620466.3.579.2. 1286 1966 Unknown [id number] 2.16.840.1.017376.3.579.2. 1286 1966 Unknown [id number] 2.16.840.1.879753.3.579.2. 1286 1966 Unknown [id number] 2.16.840.1.980368.3.579.2. 1286 1966 Unknown [id number] 2.16.840.1.135269.3.579.2. 1286 1966 Unknown [id number] 2.16.840.1.575669.3.579.2. 1286 1966 Unknown [id number] 2.16.840.1.655080.3.579.2. 1286 1966 Unknown [id number] 2.16.840.1.538617.3.579.2. 1286 1966 Unknown [id number] 2.16.840.1.065386.3.579.2. 1286 1966 Unknown [id number] 2.16.840.1.673568.3.579.2. 1286 1966 Unknown [id number] 2.16.840.1.226549.3.579.2. 1286 1966 Unknown [id number] 2.16.840.1.306317.3.579.2. 1286 1966 Unknown [id number] 2.16.840.1.452939.3.579.2. 1286 1966 Unknown [id number] 2.16.840.1.230033.3.579.2. 1286 1966 Unknown [id number] 2.16.840.1.180481.3.579.2. 1286 1959 Medicare [id number] 2.16.840.1.088913.19 Unknown [id number] Unknown [id number] 2.16.840.1.103571.3.579.2. 531 Unknown [id number] 2.16.840.1.834054.3.579.2. 531 Unknown [id number] 2.16.840.1.676464.3.579.2. 531 Social History Date Type Detail Facility Start: 12-22-2019 End: 11-19-2020 Tobacco smoking status [facility] Never smoker [facility] Start: 12-22-2019 End: 11-19-2020 Tobacco use and exposure Never used [facility] Start: 11-19-2020 End: 02-06-2021 Alcohol intake Current drinker of alcohol (finding) [facility] Start: 11-06-2020 Alcohol [facility] Start: 1965 Sex Assigned At [facility] Exposure to SARS-CoV -2 (event) Not sure [facility] Start: 02-07-2021 End: 11-02-2023 Sex Assigned At [employer] Other Start: 01-06-2024 End: 08-10-2025 Alcohol intake Ex-drinker (finding) [facility] Start: 02-07-2021 End: 11-02-2023 History of Social function [facility] Start: 11-02-2023 Alcohol Comment pop-4 cups daily [facility] Start: 1965 Sex Assigned At Male [facility] Start: 02-03-2024 Tobacco smoking stat [facility] Ex-smoker (finding) [facility] Tobacco smoking stat [facility] Tobacco smoking consumption unknown [facility] National Score (1-10 0), lower number is lower risk 87 [facility] Do you belong to any clubs or organizations such as mandaen groups, unions, fraternal or athletic groups, or school groups? No [facility] Are you now , , , , never or living with a partner? [facility] How often to you hav e a drink containing alcohol? Monthly or less [facility] How often do you hav e 6 or more drinks on 1 occasion? Never [facility] How hard is it for [...] System Start: 03-21-2021 Alcohol Comment quit 2005 [facility] Start: 06-27-2015 Sex Male (finding) [facility] NEGATED: Highlighted rowStart: NINF History of tobacco use Passive smoker [facility] Medical Equipment Procedure Code Equipment Code Equipment Origin al Text Equipment Identifier Dates [id number] Start: 08-03-2021 End: 04-26-2025 Cmnt Bn Bio 40gm Rpl [id number] - [id number] Start: 02-07-2021 Lens Iol Ultrase rt 18.5d - [id number] - [id number] Start: 12-28-2019 1 Pen Needle by miscellaneous route in the morning and 1 Pen Needle at noon and 1 Pen Needle in the evening and 1 Pen Needle before bedtime. [id number] Start: 04-26-2025 End: 05-10-2025 1 strip by other route 4 (four) times a day before meals and nightly. [id number] Start: 04-26-2025 End: 05-10-2025 1 strip by other route 4 (four) times a day before meals and nightly. [id number] Start: 05-10-2025 End: 05-16-2025 1 strip by other route 4 (four) times a day before meals and nightly. [id number] Start: 05-16-2025 End: 07-05-2025 1 strip by other route 4 (four) times a day before meals and nightly. [id number] Start: 07-05-2025 End: 07-06-2025 1 strip by other route 3 (three) times a day. [id number] Start: 07-06-2025 Goals Date Patient Goal Desired Activity /State Personal health goal Comment on above: Formatting of this n ote might be different from the original. Evaluation of progress towards goal: [facility] nursing home facility Clinical Notes 08-25-2022 to 08-30-2025 Telephone Encounter - Phu Ocasio MA - 08/30/2025 1:02 PM EDTTelephone Encounter - Phu Ocasio MA - 08/30/2025 1:02 PM EDTTelephone Encounter - Sangeetha Ivory - 08/27/2025 2:12 PM EDT Note Date & Type Note Facility 08-30-2025 Miscellaneous Notes The patient was a no show today. [facility] requesting patient call back to schedule another appointment. documented in this encounter [facility] 08-30-2025 Telephone encounter Note The patient was a no show today. [facility] requesting patient call back to schedule another appointment. [facility] 08-27-2025 Miscellaneous Notes Patient presenting to office requesting refill of amox/k clav 875-[address] [facility]. Please advise Spoke with patient, he states he would like a refill for this medication. Spoke with him and he states he is still having symptoms Please advise? Prescription for Augmentin 875/125 mg 1 tablet twice daily for 14 days sent into [place], [place] documented in this encounter [facility] 08-27-2025 Telephone encounter Note Patient presenting to office requesting refill of amox/k clav 875-[address] [facility]. Please advise [facility] 08-27-2025 Telephone encounter Note Spoke with patient, he states he would like a refill for this medication. Spoke with him and he states he is still having symptoms Please advise? [facility] 08-27-2025 Telephone encounter Note Prescription for Augmentin 875/125 mg 1 tablet twice daily for 14 days sent into [place], [place] [facility] 08-24-2025 Miscellaneous Notes Attempted to call patient and inform him on NovoLog in office for him to picker and packer in office, no answer, left voicemail. documented in this encounter [facility] 08-24-2025 Telephone encounter Note Attempted to call patient and inform him on NovoLog in office for him to picker and packer in office, no answer, left voicemail. [facility] 08-22-2025 Radiology Diagnostic study note [facility] Main [place] [address] [place] [address] CT Scan Report Signed Patient: More Kingsley MR#: [id number] : 1965 Acct:[id number] Age/Sex: 59 / M ADM Date: 5 Loc: CT Room: Type: [facility] Attending Dr: Cathy Leggett RN EMERGENCY ROOM-C Copies to: Cathy Leggett APRN~ Ordering Provider: Cathy Leggett APRN Date of Service: 08/22/25 CT/CT angio head: I65.23 - Occlusion and stenosis of bilateral carotid ney... ([id number]) CT/CT angio neck: I65.23 - Occlusion and [...] Kidd M.D. 08/22/2025 5:14 PM Dictation Location: [facility]-- Transcribed By: AMBER 08/22/251713 Dictated By: Blair Kidd II, MD 08/22/251703 Signed By: 08/22/251713 [facility] Work Phone: 08-16-2025 Miscellaneous Notes Attempted to call patient to inform of package for Lantus medication received in office and ready for him to picker and packer documented in this encounter [facility] 08-16-2025 Telephone encounter Note Attempted to call patient to inform of package for Lantus medication received in office and ready for him to picker and packer [facility] 08-13-2025 History of Present illness Narrative [facility] MEDICATION MANAGEMENT [address] [facility] [id number] Subjective SUBJECTIVE: Referring Provider: Art Freeman DO [...] and Novolog. Patient was instructed to call [facility] for instructions transitioning insulin. To this [...] with caution. Patient was instructed to call [facility] when this medication arrives. Pertinent current [...] Device Brand: Accu-check Diabetic Supplier: [facility] in [place] Retail Date FBG AC PPG 08/13 237 [...] B12 Level: Lab Results Component Value Date [id number] 1,009 (H) 05/16/2025 Lipid Management: Lab Results [...] due to exceptionally high pre-dinner readings Call [facility] when Lantus and Novolog arrive at PCP office for instruction with dosing Patient stated to [facility] that he did not need to do this as his glucose is well controlled when he has these insulins. Explained his A1C has not been controlled in some time and to please notify PPMM so we can safely adjust his dosing. Patient non-committal to this. Refills needed on pertinent current medications/supplies: No Patient Assistance, [employer] Worker [employer], or Prior Authorization: Yes PAP singed for Farxiga today PAP with Sonofi (Lantus) approved 2024 PAP with Alejandra Nordisk (Novolog) approved 2024 Ozempic PAP started today Patient will need to picker and packer medication from providers office MONITORING: CGM: N/A Glucometer Testing: Twice daily (fasting and alternating post-prandial and before meals) FOLLOW UP: Next PCP visit: 09/21/2025 Next Pharmacist visit: 08/30/25 Signature: Roxy Lenz PharmD, [facility] 30 minute [id number] follow-up appointment. Roxy Lenz [facility] 08/13/25 1203 documented in this encounter [facility] 08-10-2025 History of Present illness Narrative Images from the original note were not included. [facility] [address] [place] [address] Patient: More Kingsley Jr. Date of : [...] 02/2021 left foot Chronic osteomyelitis of foot ([facility]) 02/2021 left/with draining sinus Dental disease poor repair Diabetes mellitus type 2, controlled ([facility]) 1999 Hyperlipidemia Hypertension PICC (peripherally inserted central catheter) flush 02/2021 Visual impairment glasses Past Surgical History: Procedure Laterality Date AMPUTATION SYMES LOWER EXTREMITY Left 04/18/2021 Performed by Chan Brooke DPM at [facility] AMPUTATION TOEMID FOOT OSTEOTOMY ACHILLES TENOTOMY Left 02/07/2021 Performed by Chan Brooke DPM at [facility] ASPIRATION BONE MARROW BIOPSY BONE MARROW (BONE BIOPSY) Left 03/24/2021 Performed by Chan Brooke DPM at [facility] CLOSURE WOUND LOWER EXTREMITY (DELAYED PRIMARY CLOSURE) Left 03/24/2021 Performed by Chan Brooke DPM at [facility] DEBRIDEMENT FOOT/ANKLE Left 02/07/2021 Performed by Chan Brooke DPM at [facility] EXOSTECTOMY FOOT Right 09/01/2021 Performed by Chan Brooke DPM at [facility] SURGERY PHACO KELMAN I IMPLANT INTRAOCULAR LENS Right 12/28/2019 Performed by Debra Trejo MD at [facility] REMOVAL HARDWARE FOOT/TOE, AND REMOVAL ANTIBIOTIC SPACER Left 03/24/2021 Performed by Chan Brooke DPM at [facility] SURGERY TONSILLECTOMY as child Family History Problem [...] and 10 to the basement. Worked at [employer]. Now disabled Social Drivers of Health Financial Resource Strain: Low Risk (01/06/2024) Received from [facility] Overall Financial Resource Strain (CARDIA) Difficulty of Paying Living Expenses: Not hard at all Food Insecurity: Food Insecurity Present (08/10/2025) Hunger Screening Food Insecurity - Worry: Sometimes True Food Insecurity - Inability: Sometimes True Transportation Needs: Unmet Transportation Needs (01/06/2024) Received from [facility] PRAPARE - Transportation Lack of Transportation (Medical): Yes Lack of Transportation (Non-Medical): Yes Physical Activity: Inactive (01/06/2024) Received from [facility] Exercise Vital Sign Days of Exercise per Week: 0 days Minutes of Exercise per Session: 0 min Stress: Stress Concern Present (01/06/2024) Received from [facility] [place] of Occupational Health - Occupational Stress Questionnaire Feeling of Stress : Very much Social Connections: Socially Isolated (01/06/2024) Received from [facility] Social Connection and Isolation Panel [NHANES] Frequency of Communication with Friends and Family: Never Frequency of Social Gatherings with Friends and Family: Never Attends Buddhist Services: Never Active Member of Clubs or Organizations: Yes Attends Club or Organization Meetings: Never Marital Status: Interpersonal Safety: Unknown (01/13/2024) Received from [facility] Safety & Environment Fear of Current or Ex-Partner: Not on file Emotionally Abused: Not on file Physically Abused: Not on file Sexually Abused: Not on file Physically or Sexually Abused: Not on file Housing Instability: Low Risk (01/06/2024) Received from [facility] Housing Stability Vital Sign Unable to Pay [...] HISTORY: Right foot ulcer, with unspecified severity ([facility]). COMPARISON: 03/04/2025 IMPRESSION: Unchanged indication about the [...] ulcer, with long-term current use of insulin ([facility]) - lisinopriL (PRINIVIL,ZESTRIL) 10 mg tablet; Take 1 tablet (10 mg total) by mouth in the morning for 360 days. Dispense: 90 tablet; Refill: 3 - insulin NPH (HumuLIN N,NovoLIN N) 100 unit/mL injection; 38 units in the morning and 40 units at nighttime Dispense: 10 mL; Refill: 3 5. Mixed hyperlipidemia due to type 2 diabetes mellitus ([facility]) - atorvastatin (LIPITOR) 80 mg tablet; Take 1 tablet (80 mg total) by mouth daily with breakfast for 360 days Indications: excessive fat in the blood. Dispense: 90 tablet; Refill: 3 - niacin (NIASPAN) 500 mg CR tablet; Take 1 tablet (500 mg total) by mouth nightly. Dispense: 90 tablet; Refill: 1 6. Ulcer of right foot with fat layer exposed ([facility]) - amoxicillin-pot clavulanate (AUGMENTIN) 875-125 mg per tablet; Take 1 tablet by mouth in the morning and 1 tablet before bedtime. Do all this for 14 days. Dispense: 28 tablet; Refill: 0 7. Type 2 diabetes mellitus with other circulatory complication, with long-term current use of insulin ([facility]) - semaglutide (OZEMPIC) 0.25 mg or 0.5 [...] 08/10/25 1:49 PM [facility] encounter [facility] Instructions Art Freeman DO - 08/10/2025 10:00 AM EDT Increased atorvastatin to 80 mg daily and start on niacin 500 mg 1 tablet nightly for HDL improvement. Take Niacin with aspirin 81 mg daily to help with flushing. Increase Novolin N to 38 units in the morning and 40 units in the evening documented [facility] this encounter [facility] 07-17-2025 Miscellaneous Notes [employer] Patient assistance application faxed to Dr. Art Freeman's office at [phone] for provider signature. To follow up call [phone]. [employer] Patient assistance application faxed to Dr. Art Freeman's office at [phone] for provider signature. To follow up call [phone]. documented [facility] this encounter [facility] 07-17-2025 Telephone encounter Note [employer] Patient assistance application faxed to Dr. Art Freeman's office at [phone] for provider signature. To follow up call [phone]. [employer] Patient assistance application faxed to Dr. Art Freeman's office at [phone] for provider signature. To follow up call [phone]. [facility] 07-17-2025 Miscellaneous Notes Attempted to balbir patient, [...] Art Freeman DO documented in this encounter [facility] 07-17-2025 Telephone encounter Note Attempted to balbir [...] 3:26 PM EDT To: Art Freeman DO [facility] 07-16-2025 History of Present illness Narrative Images from the original note were not included. [facility] - PHARMACY MEDICATION MANAGEMENT [address] [facility] [id number] Subjective SUBJECTIVE: Referring Provider: Art Freeman DO [...] assistance for his insulins. Applications for both SanHexadite and Alejandra Nordisk completed today for Lantus, [...] and will report any side effects to [facility] immediately. Will also need to follow [...] Device Brand: Accu-check Diabetic Supplier: [facility] in [place] [employer] in the mid to high [...] B12 Level: Lab Results Component Value Date [id number] 1,009 (H) 05/16/2025 Lipid Management: Lab Results [...] on pertinent current medications/supplies: No Patient Assistance, Nutrition Services Worker Coupon, or Prior Authorization: Yes PAP with Sonofi (Lantus) PAP with Alejandra Nordisk (Novolog) Patient will need to picker and packer medication from providers office MONITORING: CGM: N/A Glucometer Testing: Twice daily (fasting and alternating post-prandial and before meals) FOLLOW UP: Next PCP visit: 08/10/2025 Next Pharmacist visit: 1 month Signature: LELE FRYE RPH 60 minute [id number] initial appointment. Lele Frye RPH 07/16/25 1331 documented in this encounter [facility] 07-06-2025 Evaluation + Plan note Associated Problem(s): Peripheral artery disease Patient with moderate to severe peripheral artery disease based on studies from hospitalization earlier in June. Patient scheduled to have vascular procedure on 07/09. Improvement in vascular function will help with diabetic foot ulcer heal [facility] 07-06-2025 Miscellaneous Notes Associated Problem(s): Peripheral artery disease Patient with moderate to severe peripheral artery disease based on studies from hospitalization earlier in June. Patient scheduled to have vascular procedure on 07/09. Improvement in vascular function will help with diabetic foot ulcer heal Associated Problem(s): Diabetes mellitus ([facility]) Patient diabetes is uncontrolled. Due to financial restrictions, he is unable to afford insulin which he uses to control blood sugar. Patient's last hemoglobin A1c from April 2025 was 11.5%. Discussed with patient the importance of blood sugar control. Since patient having difficulty affording the cost of medications we will refer patient to the [facility] medical management team for diabetes to aid with patient assistance and management of blood sugars for tighter control.. documented in this encounter [facility] 07-06-2025 Evaluation + Plan note Associated Problem(s): Diabetes mellitus ([facility]) Patient diabetes is uncontrolled. Due to financial restrictions, he is unable to afford insulin which he uses to control blood sugar. Patient's last hemoglobin A1c from April 2025 was 11.5%. Discussed with patient the importance of blood sugar control. Since patient having difficulty affording the cost of medications we will refer patient to the [facility] medical management team for diabetes to aid with patient assistance and management of blood sugars for tighter control.. [facility] 07-05-2025 Miscellaneous Notes [facility] - PHARMACY MEDICATION MANAGEMENT [address] [facility] [id number] New referral received by [facility]ication [facility] for diabetes. Patient was contacted to schedule appointment at [facility] Medication Management [place] ([facility]). This was my first attempt to reach the patient and a message was left on their voicemail requesting a call back. Patient will be asked to bring [facility] Additional Info: Medication List. Referring provider: Art Freeman DO Patient with poorly controlled diabetes in part due to issues with affording the cost of insulin. Use is sporadic. ALos had chronic nonhealing diabetic wound on foot. Office does not have samples to provide Patient called and scheduled an appointment 07/16/25 at [facility]. documented in this encounter [facility] 07-05-2025 Telephone encounter Note [facility] PHARMACY MEDICATION MANAGEMENT [address] [place] [address] [address] [facility] [id number] New referral received by [facility] Medication Management for diabetes. Patient was contacted to schedule appointment at [facility] Medication [facility] ([facility]). This was my first attempt to reach [...] Office does not have samples to provide [facility] 07-05-2025 Telephone encounter Note Patient called and scheduled an appointment 07/16/25 at [facility]. [facility] 07-05-2025 History of Present illness Narrative Images from the original note were not included. [facility] [address] [place] [address] [place] [address] Patient: More Kingsley Jr. Date of : [...] 20, 2025 until June 22, 2025 at [facility] for diabetic infection of the right [...] 02/2021 left foot Chronic osteomyelitis of foot ([facility]) 02/2021 left/with draining sinus Dental disease poor repair Diabetes mellitus type 2, controlled ([facility]) 1999 Hyperlipidemia Hypertension PICC (peripherally inserted central catheter) flush 02/2021 Visual impairment glasses Past Surgical History: Procedure Laterality Date AMPUTATION SYMES LOWER EXTREMITY Left 04/18/2021 Performed by Chan Brooke DPM at [facility] AMPUTATION TOEMID FOOT OSTEOTOMY ACHILLES TENOTOMY Left 02/07/2021 Performed by Chan Brooke DPM at [facility] ASPIRATION BONE MARROW BIOPSY BONE MARROW (BONE BIOPSY) Left 03/24/2021 Performed by Chan Brooke DPM at [facility] CLOSURE WOUND LOWER EXTREMITY (DELAYED PRIMARY CLOSURE) Left 03/24/2021 Performed by Chan Brooke DPM at [facility] DEBRIDEMENT FOOT/ANKLE Left 02/07/2021 Performed by Chan Brooke DPM at [facility] EXOSTECTOMY FOOT Right 09/01/2021 Performed by Chan Brooke DPM at [facility] PHACO KELMAN I IMPLANT INTRAOCULAR LENS Right 12/28/2019 Performed by Debra Trejo MD at [facility] REMOVAL HARDWARE FOOT/TOE, AND REMOVAL ANTIBIOTIC SPACER Left 03/24/2021 Performed by Chan Brooke DPM at [facility] SURGERY TONSILLECTOMY as child Family History Problem [...] and 10 to the basement. Worked at [employer]. Now disabled Social Drivers of Health Financial Resource Strain: Low Risk (01/06/2024) Received from [facility] Overall Financial Resource Strain (CARDIA) Difficulty of Paying Living Expenses: Not hard at all Food Insecurity: No Food Insecurity (07/05/2025) Hunger Screening Food Insecurity - Worry: Never True Food Insecurity - Inability: Never True Transportation Needs: Unmet Transportation Needs (01/06/2024) Received from [facility] PRAPARE - Transportation Lack of Transportation (Medical): Yes Lack of Transportation (Non-Medical): Yes Physical Activity: Inactive (01/06/2024) Received from [facility] Exercise Vital Sign Days of Exercise per Week: 0 days Minutes of Exercise per Session: 0 min Stress: Stress Concern Present (01/06/2024) Received from [facility] [place] [employer] Occupational Health - Occupational Stress Questionnaire Feeling of Stress : Very much Social Connections: Socially Isolated (01/06/2024) Received from [facility] Social Connection and Isolation Panel [NHANES] Frequency of Communication with Friends and Family: Never Frequency of Social Gatherings with Friends and Family: Never Attends Buddhist Services: Never Active Member of Clubs or Organizations: Yes Attends Club or Organization Meetings: Never Marital Status: Interpersonal Safety: Unknown (01/13/2024) Received from [facility] Safety & Environment Fear of Current or Ex-Partner: Not on file Emotionally Abused: Not on file Physically Abused: Not on file Sexually Abused: Not on file Physically or Sexually Abused: Not on file Housing Instability: Low Risk (01/06/2024) Received from [facility] Housing Stability Vital Sign Unable to Pay [...] HISTORY: Right foot ulcer, with unspecified severity ([facility]). COMPARISON: 03/04/2025 IMPRESSION: Unchanged indication about the [...] ulcer, with long-term current use of insulin ([facility]) - Lipid panel; Future - [facility] ([employer]) - [place], [place]; Future 2. Ulcer of right foot with fat layer exposed ([facility]) - collagenase (SantyL) ointment; Apply 1 Application [...] 2 5. Peripheral artery disease Diabetes mellitus ([facility]) Patient diabetes is uncontrolled. Due to financial restrictions, he is unable to afford insulin which he uses to control blood sugar. Patient's last hemoglobin A1c from April 2025 was 11.5%. Discussed with patient the importance of blood sugar control. Since patient having difficulty affording the cost of medications we will refer patient to the [facility] medical management team for diabetes to [...] 07/06/25 2:46 PM documented in this encounter [facility] 06-28-2025 Evaluation note Diagnosis Onset Date Resolution Diabetic ulcer of right foot acute June 28, 2025 9:55am Occlusion and stenosis of bilateral carotid arteries acute June 28, 2025 9:55am PAD (peripheral artery disease) acute June 28, 2025 9:55am [facility] Work Phone: [phone]) 203-223807-01-2025 Miscellaneous Notes* Telephone Encounter - Danielle Masters [...] manage his blood sugars. [facility] Telephone encounter Note* Telephone Encounter - Danielle [...] 1:51 PM EDT To: Art Freeman DO [facility]07-01-2025 Telephone encounter Note* Telephone Encounter - Danielle Masters CNA - 05/22/2025 2:40 PM EDT Spoke with patient, he verbalized understanding. Patient declined the referral to endocrinology, just states he needs his meds [facility]07-01-2025 Telephone encounter Note* Telephone Encounter - Art Freeman DO - 05/22/2025 2:40 PM EDT Attempted to call patient did not answer I did not leave a message. I wanted to make sure from his last visit that he was able to get his insulins to manage his blood sugars. [facility]06-22-2025 Miscellaneous Notes* Telephone Encounter - Art Freeman DO - 05/13/2025 3:07 PM EDT CHANGE TO ACCUCHECK documented [facility] Telephone encounter Note* Telephone Encounter - Art Freeman DO - 05/13/2025 3:07 PM EDT CHANGE TO ACCUCHECK [facility]06-19-2025 Evaluation + Plan note* Assessment & Plan Note - Art Freeman DO - 05/10/2025 12:59 PM EDTAssociated Problem(s): Benign essential HTN Hypertension is stable. Continue with hydrochlorothiazide 12.5 mg daily and lisinopril 10 mg daily. [facility]06-19-2025 Miscellaneous Notes* Assessment & Plan Note - Art Freeman DO - 05/10/2025 12:59 PM EDTAssociated Problem(s): Benign essential HTN Hypertension is stable. Continue with hydrochlorothiazide 12.5 mg daily and lisinopril 10 mg daily. * Assessment & Plan Note - Art Freeman DO - 05/10/2025 12:58 PM EDT Associated Problem(s): Diabetes mellitus ([facility]) Hemoglobin A1c from May 02, 2025 was [...] mg 1 tablet daily. documented in [facility] Evaluation + Plan note* Assessment & Plan Note - Art Freeman DO - 05/10/2025 12:58 PM EDT Associated Problem(s): Diabetes mellitus ([facility]) Hemoglobin A1c from May 02, 2025 was 11.5%. Patient was unable to afford insulin prescriptions at last visit. Prescribed Lantus Solostar insulin pens 30 units twice daily and NovoLog flex pen sliding scale 3 times daily with meals. [facility] [employer] [id number] Evaluation + Plan note* Assessment & Plan Note - Art Freeman DO - 05/10/2025 12:57 PM EDTAssociated Problem(s): Chronic midline low back pain without sciatica Reviewed 6 view lumbar x-rays from May 02, 2025. Prescribed celecoxib 100 mg 1 tablet daily. [employer] [id number] History of Present illness Narrative* Art Freeman DO - 05/10/2025 9:30 AM EDT Images from the original note were not included. [facility] [address] [place] [address] [place] [address] Patient: More Kingsley Jr. Date of : [...] 02/2021 left foot Chronic osteomyelitis of foot ([facility]) 02/2021 left/with draining sinus Dental disease poor repair Diabetes mellitus type 2, controlled ([facility]) 1999 Hyperlipidemia Hypertension PICC (peripherally inserted central catheter) flush 02/2021 Visual impairment glasses Past Surgical History: Procedure Laterality Date AMPUTATION SYMES LOWER EXTREMITY Left 04/18/2021 Performed by Chan Brooke DPM at [facility] AMPUTATION TOEMID FOOT OSTEOTOMY ACHILLES TENOTOMY Left 02/07/2021 Performed by Chan Brooke DPM at [facility] ASPIRATION BONE MARROW BIOPSY BONE MARROW (BONE BIOPSY) Left 03/24/2021 Performed by Chan Brooke DPM at [facility] CLOSURE WOUND LOWER EXTREMITY (DELAYED PRIMARY CLOSURE) Left 03/24/2021 Performed by Chan Brooke DPM at [facility] DEBRIDEMENT FOOT/ANKLE Left 02/07/2021 Performed by Chan Brooke DPM at [facility] EXOSTECTOMY FOOT Right 09/01/2021 Performed by Chan Brooke DPM at [facility] SURGERY PHACO KELMAN I IMPLANT INTRAOCULAR LENS Right 12/28/2019 Performed by Debra Trejo MD at [facility] REMOVAL HARDWARE FOOT/TOE, AND REMOVAL ANTIBIOTIC SPACER Left 03/24/2021 Performed by Chan Brooke DPM at [facility] SURGERY TONSILLECTOMY as child Family History Problem [...] and 10 to the basement. Worked at [employer]. Now disabled Social Drivers of Health Financial Resource Strain: Low Risk (01/06/2024) Received from [facility] Overall Financial Resource Strain (CARDIA) Difficulty of Paying Living Expenses: Not hard at all Food Insecurity: No Food Insecurity (05/10/2025) Hunger Screening Food Insecurity - Worry: Never True Food Insecurity - Inability: Never True Transportation Needs: Unmet Transportation Needs (01/06/2024) Received from [facility] PRAPARE - Transportation Lack of Transportation (Medical): Yes Lack of Transportation (Non-Medical): Yes Physical Activity: Inactive (01/06/2024) Received from [facility] Exercise Vital Sign Days of Exercise per Week: 0 days Minutes of Exercise per Session: 0 min Stress: Stress Concern Present (01/06/2024) Received from [facility] [place] [employer] - Occupational Stress Questionnaire Feeling of Stress : Very much Social Connections: Socially Isolated (01/06/2024) Received from [facility] Social Connection and Isolation Panel [NHANES] Frequency of Communication with Friends and Family: Never Frequency of Social Gatherings with Friends and Family: Never Attends Buddhist Services: Never Active Member of Clubs or Organizations: Yes Attends Club or Organization Meetings: Never Marital Status: Interpersonal Safety: Unknown (01/13/2024) Received from [facility] Safety & Environment Fear of Current or Ex-Partner: Not on file Emotionally Abused: Not on file Physically Abused: Not on file Sexually Abused: Not on file Physically or Sexually Abused: Not on file Housing Instability: Low Risk (01/06/2024) Received from [facility] Housing Stability Vital Sign Unable to Pay [...] ulcer, with long-term current use of insulin ([facility]) - lisinopriL (PRINIVIL,ZESTRIL) 10 mg tablet; Take [...] 100 mg 1 tablet daily. Diabetes mellitus ([facility]) Hemoglobin A1c from May 02, 2025 was [...] DO 05/10/25 12:59 PM documented in [facility] encounter[facility] Instructions* Patient Instructions* Art Freeman DO - [...] and exercises as given documented in this encounterJoint [facility] Evaluation + Plan note* Assessment & Plan Note - Art Freeman DO - 04/27/2025 9:18 PM EDT Associated Problem(s): Chronic midline low back pain without sciatica Ordered x-rays of lumbar spine 6 views including flexion and extension views. [facility]06-[facility] Miscellaneous Notes* Assessment & Plan Note - Art Freeman DO - 04/27/2025 9:18 PM EDTAssociated Problem(s): Chronic midline low back pain without sciatica Ordered x-rays of lumbar spine 6 views including flexion and extension views. * Assessment & Plan Note - Art Freeman DO - 04/27/2025 9:16 PM EDT Associated Problem(s): Diabetes mellitus ([facility]) Last hemoglobin A1c from April [...] level of transaminase elevation documented in this encounterJoint [facility]25 Evaluation + Plan note* Assessment & Plan Note - Art Freeman DO - 04/27/2025 9:16 PM EDT Associated Problem(s): Diabetes mellitus ([facility]) Last hemoglobin A1c from April 01, 2025 was 11%. Continue with insulin glargine 30 units nightly, insulin lispro sliding scale coverage before meals. Monitor blood sugars before meals. [facility]06-06-2025 Evaluation + Plan note* Assessment & Plan Note - Art Freeman DO - 04/27/2025 9:14 PM EDTAssociated Problem(s): Benign essential HTN Blood pressure today in normal range. Patient denies any symptoms. Continue with hydrochlorothiazide 12.5 mg daily, lisinopril 10 mg daily. [facility]06-06-2025 Evaluation + Plan note* Assessment & Plan Note - Art Freeman DO - 04/27/2025 9:13 PM EDTAssociated Problem(s): Fatty liver disease, nonalcoholic Ordered lab work including comprehensive metabolic panel to evaluate for level of transaminase elevation [facility]06-[facility]2025 History of Present illness Narrative* Art Freeman DO - 04/26/2025 2:00 PM EDT Images from the original note were not included. [facility] [address] [place] [address] Patient: More Kingsley Jr. Date of : [...] 02/2021 left foot Chronic osteomyelitis of foot ([facility]) 02/2021 left/with draining sinus Dental disease poor repair Diabetes mellitus type 2, controlled ([facility]) 1999 Hyperlipidemia Hypertension PICC (peripherally inserted central catheter) flush 02/2021 Visual impairment glasses Past Surgical History: Procedure Laterality Date AMPUTATION SYMES LOWER EXTREMITY Left 04/18/2021 Performed by Chan Brooke DPM at [facility] AMPUTATION TOEMID FOOT OSTEOTOMY ACHILLES TENOTOMY Left 02/07/2021 Performed by Chan Brooke DPM at [facility] ASPIRATION BONE MARROW BIOPSY BONE MARROW (BONE BIOPSY) Left 03/24/2021 Performed by Chan Brooke DPM at [facility] CLOSURE WOUND LOWER EXTREMITY (DELAYED PRIMARY CLOSURE) Left 03/24/2021 Performed by Chan Brooke DPM at [facility] DEBRIDEMENT FOOT/ANKLE Left 02/07/2021 Performed by Chan Brooke DPM at [facility] EXOSTECTOMY FOOT Right 09/01/2021 Performed by Chan Brooke DPM at [facility] PHACO KELMAN I IMPLANT INTRAOCULAR LENS Right 12/28/2019 Performed by Debra Trejo MD at [facility] REMOVAL HARDWARE FOOT/TOE, AND REMOVAL ANTIBIOTIC SPACER [...] and 10 to the basement. Worked at [employer]. Now disabled Social Drivers of Health Financial Resource Strain: Low Risk (01/06/2024) Received from [facility] Overall Financial Resource Strain (CARDIA) Difficulty of Paying Living Expenses: Not hard at all Food Insecurity: No Food Insecurity (04/26/2025) Hunger Screening Food Insecurity - Worry: Never True Food Insecurity - Inability: Never True Transportation Needs: Unmet Transportation Needs (01/06/2024) Received from [facility] PRAPARE - Transportation Lack of Transportation (Medical): Yes Lack of Transportation (Non-Medical): Yes Physical Activity: Inactive (01/06/2024) Received from [facility] Exercise Vital Sign Days of Exercise per Week: 0 days Minutes of Exercise per Session: 0 min Stress: Stress Concern Present (01/06/2024) Received from [facility] [place] [employer] Health - Occupational Stress Questionnaire Feeling of Stress : Very much Social Connections: Socially Isolated (01/06/2024) Received from [facility] Social Connection and Isolation Panel [NHANES] Frequency of Communication with Friends and Family: Never Frequency of Social Gatherings with Friends and Family: Never Attends Buddhist Services: Never Active Member of Clubs or Organizations: Yes Attends Club or Organization Meetings: Never Marital Status: Interpersonal Safety: Unknown (01/13/2024) Received from [facility] Safety & Environment Fear of Current or Ex-Partner: Not on file Emotionally Abused: Not on file Physically Abused: Not on file Sexually Abused: Not on file Physically or Sexually Abused: Not on file Housing Instability: Low Risk (01/06/2024) Received from [facility] Housing Stability Vital Sign Unable to Pay [...] ulcer, with long-term current use of insulin ([facility]) - TRUE METRIX GLUCOSE TEST STRIP strip; [...] daily, lisinopril 10 mg daily. Diabetes mellitus ([facility]) Last hemoglobin A1c from April [...] DO 04/27/25 9:18 PM documented in this encounterJoint [facility] Instructions* Patient Instructions* Art Freeman DO - 04/26/2025 2:00 PM EDT Get blood work and x-ray of lumbar spine completed before next visit. Follow instructions for medications. Check blood sugars up to 4 times per day and use short acting insulin as directed. Take Lantus 30 units daily documented in this [facility] [id number] History of Present illness Narrative* Sherri Garcia APRN-ROSALIA - 04/24/2025 10:30 AM EDTAssociated Order(s): Debridement Post-Procedure Diagnose(s): 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 ([facility]); Diabetic ulcerof right midfoot associated with type 2 diabetes mellitus, with muscle involvement without evidenceof necrosis ([facility]) Images from the original note were not included. Wound Care Progress Note Patient: More Kingsley Jr. Date of : 1965 Chief Complaint: Right foot ulcer, follow up Subjective/HPI: More is a 59 y.o. male who present to [facility] for evaluation of 1 ulcer(s) on theright plantar midfoot. Patient established with wound clinic 03/28/2025. Current wound care includes: Vashe soak, cover with Xeroform, secure with roll gauze. Patient is wearing a right tennis shoe, Patient presents with a prosthetic of the left foot. Patient states his technology program manager is Dr. Eric Stephenson, [facility]. Patient was seen in the emergency [...] notes. Patient Active Problem List Diagnosis Sepsis ([facility]) Diabetic ulcer of right midfoot associated with type 2 diabetes mellitus, with muscle involvement without evidence of necrosis ([facility]) Chronic osteomyelitis of left foot with draining sinus ([facility]) Wound, open, foot with complication, left, initial encounter Charcot's joint of foot, left Diabetes mellitus ([facility]) Hyperlipidemia Osteomyelitis of left foot ([facility]) Ulcer of right foot with fat layer exposed ([facility]) History of transmetatarsal amputation of right foot ([facility]) 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 ([facility]) Unstable ankle, right Past Medical History: Diagnosis Date Acid reflux Anemia Arthritis Cataract right lens implant Charcot's joint 02/2021 left foot Chronic osteomyelitis of foot ([facility]) 02/2021 left/with draining sinus Dental disease poor repair Diabetes mellitus type 2, controlled ([facility]) 1999 Hyperlipidemia Hypertension PICC (peripherally inserted central catheter) flush 02/2021 Visual impairment glasses Past Surgical History: Procedure Laterality Date AMPUTATION SYMES LOWER EXTREMITY Left 04/18/2021 Performed by Chan Brooke DPM at [facility] AMPUTATION TOEMID FOOT OSTEOTOMY ACHILLES TENOTOMY Left 02/07/2021 Performed by Chan Brooke DPM at [facility] ASPIRATION BONE MARROW BIOPSY BONE MARROW (BONE BIOPSY) Left 03/24/2021 Performed by Chan Brooke DPM at [facility] CLOSURE WOUND LOWER EXTREMITY (DELAYED PRIMARY CLOSURE) Left 03/24/2021 Performed by Chan Brooke DPM at [facility] DEBRIDEMENT FOOT/ANKLE Left 02/07/2021 Performed by Chan Brooke DPM at [facility] EXOSTECTOMY FOOT Right 09/01/2021 Performed by Chan Brooek DPM at [facility] PHACO KELMAN I IMPLANT INTRAOCULAR LENS Right 12/28/2019 Performed by Debra Trejo MD at [facility] REMOVAL HARDWARE FOOT/TOE, AND REMOVAL ANTIBIOTIC SPACER Left 03/24/2021 Performed by Chan Brooke DPM at [facility] TONSILLECTOMY as child Social Drivers of Health Food Insecurity: No Food Insecurity (03/04/2025) Hunger Screening Food Insecurity - Worry: Never True Food Insecurity - Inability: Never True Housing Instability: Low Risk (01/06/2024) Received from [facility] Housing Stability Vital Sign Unable to Pay for Housing in the Last Year: No Number of Places Lived in the Last Year: 1 Unstable Housing in the Last Year: No Transportation Needs: Unmet Transportation Needs (01/06/2024) Received from [facility] PRAPARE - Transportation Lack of Transportation (Medical): Yes Lack of Transportation (Non-Medical): Yes Utility Difficulties: Not on file Interpersonal Safety: Unknown (01/13/2024) Received from [facility] Safety & Environment Fear of Current or Ex-Partner: Not on file Emotionally Abused: Not on file Physically Abused: Not on file Sexually Abused: Not on file Physically or Sexually Abused: Not on file Financial Resource Strain: Low Risk (01/06/2024) Received from [facility] Overall Financial Resource Strain (CARDIA) Difficulty of Paying Living Expenses: Not hard at all Childcare: Low Risk (02/07/2021) Childcare Childcare: No Employment: Low Risk (02/07/2021) Employment Employment: No Purpose - Life: Low Risk (02/07/2021) Purpose - Life Purpose and direction in life: Agree Depression: Not at risk (03/13/2024) Received from [facility] PHQ-2 Patient Health Questionnaire-2 Score: 0 Alcohol Use: Not At Risk (01/06/2024) Received from [facility] AUDIT-C Frequency of Alcohol Consumption: Monthly or less Average Number of Drinks: Patient does not drink Frequency of Binge Drinking: Never Tobacco Use: Low Risk (04/11/2025) Patient History Smoking Tobacco Use: Never Smokeless Tobacco Use: Never Passive Exposure: Not on file Social Connections: Socially Isolated (01/06/2024) Received from [facility] Social Connection and Isolation Panel [NHANES] Frequency of Communication with Friends and Family: Never Frequency of Social Gatherings with Friends and Family: Never Attends Buddhist Services: Never Active Member of Clubs or Organizations: Yes Attends Club or Organization Meetings: Never Marital Status: Physical Activity: Inactive (01/06/2024) Received from [facility] Exercise Vital Sign Days of Exercise per Week: 0 days Minutes of Exercise per Session: 0 min Stress: Stress Concern Present (01/06/2024) Received from [facility] [place] [facility] Occupational [facility] - Occupational Stress Questionnaire [...] debridement Post debridement 04/24/25 1100 Site Assessment [place];Red 04/24/25 1100 Debi-wound Assessment Callous;Dry 04/24/25 1100 [...] Risks discussed: Yes Debridement Details: Performed by: RN EMERGENCY ROOM Type: Sharp Level: Subcutaneous Tissue, Devitalized tissue [...] short term goal is wound compliance. Our truck terminal manager goal is wound closure. The patient [...] ALBARO, NAVNEET [place] [facility]:[phone] SCOTT Vaughn 03/28/25 1311 SCOTT Vaughn 03/28/25 1619 SCOTT Vaughn 04/11/25 1218 SCOTT Vaughn 04/24/25 1202 documented in [facility] encounterJoint [facility] Instructions* Patient Instructions* Sulma Humphreys RN - [...] Description small Serosanginous yellow documented in this encounterJoint [facility]05-30-20[facility] Nurse Note* Robbin Conti RN - 04/20/2025 11:02 AM EDT 1102 Spoke to patient to give procedure day instructions. Patient states he was told it was denied . Attempted to get clarification, but was unable to. Phone number to scheduling office provided to patient so that he can tell them the same thing I was told. No instructions given. [facility]05-30-20[facility] Nurse Note* Robbin Conti RN - 04/20/2025 11:02 AM EDT 1102 Spoke to patient to give procedure day instructions. Patient states he was told it was denied . Attempted to get clarification, but was unable to. Phone number to scheduling office provided to patient so that he can tell them the same thing I was told. No instructions given. documented in this encounterTr[facility]ull [facility]05-28-2025 Telephone encounter Note * Telephone Encounter - Tamara Goncalves RN - 04/18/2025 3:21 PM EDT G-POEM for date of service 04/25/2025. Appeal with all information including letter, study, JAMIN notes, GES result, EGG result, EGD result,CT result, faxed to [employer]Appeals Dept at fax [phone] with confirmation. Appeal also mailed out to [employer]/Appeals Dept) to the address provided. Copy placed in shared clinical office filing cabinet. [facility] Work Phone: 1(910) 531-587205-28-2025 Miscellaneous Notes* Telephone Encounter - Tamara Goncalves RN - 04/18/2025 3:21 PM EDT G-POEM for date of service 04/25/2025. Appeal with all information including letter, study, JAMIN notes, GES result, EGG result, EGD result,CT result, faxed to [employer]Appeals Dept at fax [phone] with confirmation. Appeal also mailed out to [employer]/Appeals Dept) to the address provided. Copy placed in shared clinical office filing cabinet. documented in this encounterTrumbull [facility]05-21-2025 History of Present illness Narrative* Sherri Garcia, GRANT-HOME OFFICE REPRESENTATIVE - 04/11/2025 10:40 AM EDTAssociated Order(s): Debridement Post-Procedure Diagnose(s): Diabetic ulcer of right midfoot associated with type 2 diabetes mellitus, with muscle involvement without evidence of necrosis ([facility]) Images from the original note were not included. Wound Care Progress Note Patient: More Kingsley Jr. Date of : 1965 Chief Complaint: Right foot ulcer, follow up Subjective/HPI: More is a 59 y.o. male who present to [facility] for evaluation of 1 ulcer(s) on theright plantar midfoot. Patient established with wound clinic 03/28/2025. Current wound care includes: Vashe soak, cover with Xeroform, secure with roll gauze. Patient is wearing a right Darco off-loading shoe, Patient presents with a prosthetic of the left foot. Patient states he has been to Dr. Eric Stephenson, podiatry, in [facility]. Patient was seen in the emergency [...] notes. Patient Active Problem List Diagnosis Sepsis ([facility]) Diabetic ulcer of right midfoot associated with type 2 diabetes mellitus, with muscle involvement without evidence of necrosis ([facility]) Chronic osteomyelitis of left foot with draining sinus ([facility]) Wound, open, foot with complication, left, initial encounter Charcot's joint of foot, left Diabetes mellitus ([facility]) Hyperlipidemia Osteomyelitis of left foot ([facility]) Ulcer of right foot with fat layer exposed ([facility]) History of transmetatarsal amputation of right foot ([facility]) 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 ([facility]) Unstable ankle, right Past Medical History: Diagnosis Date Acid reflux Anemia Arthritis Cataract right lens implant Charcot's joint 02/2021 left foot Chronic osteomyelitis of foot (CMS-HCC) 02/2021 left/with draining sinus Dental disease poor repair Diabetes mellitus type 2, controlled ([facility]) 1999 Hyperlipidemia Hypertension PICC (peripherally inserted central catheter) flush 02/2021 Visual impairment glasses Past Surgical History: Procedure Laterality Date AMPUTATION SYMES LOWER EXTREMITY Left 04/18/2021 Performed by Chan Brooke DPM at [facility] AMPUTATION TOEMID FOOT OSTEOTOMY ACHILLES TENOTOMY Left 02/07/2021 Performed by Chan Brooke DPM at [facility] ASPIRATION BONE MARROW BIOPSY BONE MARROW (BONE BIOPSY) Left 03/24/2021 Performed by Chan Brooke DPM at [facility] CLOSURE WOUND LOWER EXTREMITY (DELAYED PRIMARY CLOSURE) Left 03/24/2021 Performed by Chan Brooke DPM at [facility] DEBRIDEMENT FOOT/ANKLE Left 02/07/2021 Performed by Chan Brooke DPM at [facility] EXOSTECTOMY FOOT Right 09/01/2021 Performed by Chan Brooke DPM at [facility] PHACO KELMAN I IMPLANT INTRAOCULAR LENS Right 12/28/2019 Performed by Debra Trejo MD at [facility] REMOVAL HARDWARE FOOT/TOE, AND REMOVAL ANTIBIOTIC SPACER Left 03/24/2021 Performed by Chan Brooke DPM at [facility] TONSILLECTOMY as child Social Drivers of Health Food Insecurity: No Food Insecurity (03/04/2025) Hunger Screening Food Insecurity - Worry: Never True Food Insecurity - Inability: Never True Housing Instability: Low Risk (01/06/2024) Received from [facility] Housing Stability Vital Sign Unable to Pay for Housing in the Last Year: No Number of Places Lived in the Last Year: 1 Unstable Housing in the Last Year: No Transportation Needs: Unmet Transportation Needs (01/06/2024) Received from [facility] PRAPARE - Transportation Lack of Transportation (Medical): Yes Lack of Transportation (Non-Medical): Yes Utility Difficulties: Not on file Interpersonal Safety: Unknown (01/13/2024) Received from [facility] Safety & Environment Fear of Current or Ex-Partner: Not on file Emotionally Abused: Not on file Physically Abused: Not on file Sexually Abused: Not on file Physically or Sexually Abused: Not on file Financial Resource Strain: Low Risk (01/06/2024) Received from [facility] Overall Financial Resource Strain (CARDIA) Difficulty of Paying Living Expenses: Not hard at all Childcare: Low Risk (02/07/2021) Childcare Childcare: No Employment: Low Risk (02/07/2021) Employment Employment: No Purpose - Life: Low Risk (02/07/2021) Purpose - Life Purpose and direction in life: Agree Depression: Not at risk (03/13/2024) Received from [facility] PHQ-2 Patient Health Questionnaire-2 Score: 0 Alcohol Use: Not At Risk (01/06/2024) Received from [facility] AUDIT-C Frequency of Alcohol Consumption: Monthly or less Average Number of Drinks: Patient does not drink Frequency of Binge Drinking: Never Tobacco Use: Low Risk (03/28/2025) Patient History Smoking Tobacco Use: Never Smokeless Tobacco Use: Never Passive Exposure: Not on file Social Connections: Socially Isolated (01/06/2024) Received from [facility] Social Connection and Isolation Panel [NHANES] Frequency of Communication with Friends and Family: Never Frequency of Social Gatherings with Friends and Family: Never Attends Buddhist Services: Never Active Member of Clubs or Organizations: Yes Attends Club or Organization Meetings: Never Marital Status: Physical Activity: Inactive (01/06/2024) Received from [facility] Exercise Vital Sign Days of Exercise per Week: 0 days Minutes of Exercise per Session: 0 min Stress: Stress Concern Present (01/06/2024) Received from [facility] [place] [facility] - Occupational Stress Questionnaire [...] debridement Post debridement 04/11/25 1053 Site Assessment Moist;[place];Yellow;Red 04/11/25 1041 Debi-wound Assessment Dry;Callous;Maceration 04/11/25 1041 [...] Risks discussed: Yes Debridement Details: Performed by: RN EMERGENCY ROOM Type: Sharp Level: Subcutaneous Tissue, Devitalized tissue [...] History of transmetatarsal amputation of right foot ([facility]) 3. Type 2 diabetes mellitus with [...] roll gauze Off-load with a cut out Trout foam pad Change daily Renewed prescription written for Augmentin 875-125 mg b.i.d. for 10 days, dispensed 20. Referral to Dr. Stephenson's office for off-loading [place] boot fitting Patient instructed in diabetic foot ulcer care to right and foot. Patient verbalize ability to perform wound care. Patient verbalized understanding. We will continue to follow closely to avoid any complications or infection. Our short term goal is wound compliance. Our intermediate goal is wound closure. The patient was [...] CWS, NAVNEET [facility]:[phone] SCOTT Vaughn 03/28/25 1311 SCOTT Vaughn 03/28/25 1619 SCOTT Vaughn 04/11/25 1218 documented in this encounterJoint [facility]05-21-2025 Instructions* Patient Instructions* Seema Hassan RN - [...] Description small Serosanginous yellow documented in this encounterNortheastern Vermont [facility] HospitalKr[facility]05-20-2025 NoteHNO ID: [id number] Author: JEROME DEL TORO, DO Service: ? Author Type: Physician Type: Progress Notes Filed: 04/10/2025 10:33 Note Text: [facility] [place] Gastroparesis/Dysmotility Consultation SERVICE DATE: 04/10/2025 SERVICE TIME: 10:04 AM PRIMARY CARE PHYSICIAN: No primary care provider on file. Imad Asaad [address] [address] My final recommendations will be communicated back [...] obtained. NAME: More Kingsley Jr. CLINIC NO: [id number] DATE OF SERVICE: April 10, 2025 This [...] of 0 to (more content not included)... [facility]05-20-2025 NoteHNO ID: [id number] Author: ANDREY ESTRELLA MA Service: ? Author Type: Factory Maintenance Manager Type: Progress Notes Filed: 04/10/2025 10:33 Note Text: What is the reason for your visit today? Consult /empties Who is your referring physician? Tracy Yoon Are you having poor oral intake? YES Have you had unintentional weight loss of 15 lbs/7 Kg in the last 3-6 months? NO Bowels: regular Wound: clean AND dry Temperature: No Drains: [facility]CDiley [facility]-2025 NoteHNO ID: [id number] Author: COURTNEY GLOVER PSYD Service: ? 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 He denies any significant psychiatric history and [...] Tends to sleep on his side. [x]Headaches-since quill collector []Depression-denied ME (more content not included)...[facility]05-20-2025 NoteHNO ID: [id number] Author: ART FIGUEREDO, DO Service: ? Author [...] - Does the patient see a paint line supervisor for chronic pain?No - Is the patient [...] - Has the patient met with a instructor military science for diet recommendations with Gastroparesis? No - [...] No evidence of an (more content not included)...[facility]05-15-2025 Telephone encounter Note* Telephone Encounter - [...] back Shena Stockton RN April 05, 2025 [facility]05-15-2025 Miscellaneous Notes* Telephone Encounter - Shena Stockton [...] RN April 05, 2025 documented in this encounterTrumbull [facility] Center05-07-2025 History of Present illness Narrative* Sherri Hollins [place], CORE MACHINE TENDER-HOME OFFICE REPRESENTATIVE - 03/28/2025 10:40 AM EDTAssociated Order(s): Debridement Post-Procedure Diagnose(s): Diabetic ulcer of right midfoot associated with type 2 diabetes mellitus, with muscle involvement without evidence of necrosis ([facility]); History of transmetatarsal amputation of right foot ([facility]) Images from the original note were not included. Wound Care Progress Note Patient: More Kingsley Jr. Date of : 1965 Chief Complaint: Right foot ulcer New patient evaluation Subjective/HPI: More is a 59 y.o. male who present to [facility] for evaluation of 1 ulcer(s) [...] AUREUS METHICILLIN RESISTANT VARIANT Abnormal Resulting Agency [facility] Today's reported Blood sugar: Patient does [...] notes. Patient Active Problem List Diagnosis Sepsis ([facility]) Diabetic ulcer of left midfoot associated with type 2 diabetes mellitus, with necrosis of bone ([facility]) Chronic osteomyelitis of left foot with draining sinus ([facility]) Wound, open, foot with complication, left, initial encounter Charcot's joint of foot, left Diabetes mellitus ([facility]) Hyperlipidemia Osteomyelitis of left foot ([facility]) Ulcer of right foot with fat layer exposed ([facility]) History of transmetatarsal amputation of right foot ([facility]) Past Medical History: Diagnosis Date Acid reflux Anemia Arthritis Cataract right lens implant Charcot's joint 02/2021 left foot Chronic osteomyelitis of foot ([facility]) 02/2021 left/with draining sinus Dental disease poor repair Diabetes mellitus type 2, controlled ([facility]) 1999 Hyperlipidemia Hypertension PICC (peripherally inserted central catheter) flush 02/2021 Visual impairment glasses Past Surgical History: Procedure Laterality Date AMPUTATION SYMES LOWER EXTREMITY Left 04/18/2021 Performed by Chan Brooke DPM at [facility] AMPUTATION TOEMID FOOT OSTEOTOMY ACHILLES TENOTOMY Left 02/07/2021 Performed by Chan Brooke DPM at [facility] ASPIRATION BONE MARROW BIOPSY BONE MARROW (BONE BIOPSY) Left 03/24/2021 Performed by Chan Brooke DPM at [facility] CLOSURE WOUND LOWER EXTREMITY (DELAYED PRIMARY CLOSURE) Left 03/24/2021 Performed by Chan Brooke DPM at [facility] DEBRIDEMENT FOOT/ANKLE Left 02/07/2021 Performed by Chan Brooke DPM at [facility] EXOSTECTOMY FOOT Right 09/01/2021 Performed by Chan Brooke DPM at [facility] PHACO KELMAN I IMPLANT INTRAOCULAR LENS Right 12/28/2019 Performed by Debra Trejo MD at [facility] REMOVAL HARDWARE FOOT/TOE, AND REMOVAL ANTIBIOTIC SPACER Left 03/24/2021 Performed by Chan Brooke DPM at [facility] TONSILLECTOMY as child Social Drivers of Health Food Insecurity: No Food Insecurity (03/04/2025) Hunger Screening Food Insecurity - Worry: Never True Food Insecurity - Inability: Never True Housing Instability: Low Risk (01/06/2024) Received from [facility] Housing Stability Vital Sign Unable to Pay for Housing in the Last Year: No Number of Places Lived in the Last Year: 1 Unstable Housing in the Last Year: No Transportation Needs: Unmet Transportation Needs (01/06/2024) Received from [facility] PRAPARE - Transportation Lack of Transportation (Medical): Yes Lack of Transportation (Non-Medical): Yes Utility Difficulties: Not on file Interpersonal Safety: Unknown (01/13/2024) Received from [facility] Safety & Environment Fear of Current or Ex-Partner: Not on file Emotionally Abused: Not on file Physically Abused: Not on file Sexually Abused: Not on file Physically or Sexually Abused: Not on file Financial Resource Strain: Low Risk (01/06/2024) Received from [facility] Overall Financial Resource Strain (CARDIA) Difficulty of Paying Living Expenses: Not hard at all Childcare: Low Risk (02/07/2021) Childcare Childcare: No Employment: Low Risk (02/07/2021) Employment Employment: No Purpose - Life: Low Risk (02/07/2021) Purpose - Life Purpose and direction in life: Agree Depression: Not at risk (03/13/2024) Received from [facility] PHQ-2 Patient Health Questionnaire-2 Score: 0 Alcohol Use: Not At Risk (01/06/2024) Received from [facility] AUDIT-C Frequency of Alcohol Consumption: Monthly or less Average Number of Drinks: Patient does not drink Frequency of Binge Drinking: Never Tobacco Use: Low Risk (03/04/2025) Patient History Smoking Tobacco Use: Never Smokeless Tobacco Use: Never Passive Exposure: Not on file Social Connections: Socially Isolated (01/06/2024) Received from [facility] Social Connection and Isolation Panel [NHANES] Frequency of Communication with Friends and Family: Never Frequency of Social Gatherings with Friends and Family: Never Attends Buddhist Services: Never Active Member of Clubs or Organizations: Yes Attends Club or Organization Meetings: Never Marital Status: Physical Activity: Inactive (01/06/2024) Received from [facility] Exercise Vital Sign Days of Exercise per Week: 0 days Minutes of Exercise per Session: 0 min Stress: Stress Concern Present (01/06/2024) Received from [facility] [place] [facility]ational Health - Occupational Stress Questionnaire [...] Risks discussed: Yes Debridement Details: Performed by: RN EMERGENCY ROOM Type: Sharp Level: Subcutaneous Tissue, Devitalized tissue [...] with muscle involvement without evidence of necrosis ([facility]) 2. History of transmetatarsal amputation of right foot ([facility]) 3. Visit for wound check [...] roll gauze Off-load with a cut out Trout foam pad Change daily Discussed various offloading [...] short term goal is wound compliance. Our truck terminal manager goal is wound closure. The patient [...] CWS, [employer] [facility] [facility]:[phone] SCOTT Vaughn 03/28/25 1888 SCOTT Vaughn 03/28/25 5015 documented in this [facility]05-07-2025 Instructions* Patient Instructions* Seema Hassan RN - [...] Description moderate Serosanginous yellow documented in this [facility]12-31-2024 Telephone encounter Note* Telephone Encounter - Leonard Cadet - 11/21/2024 3:[address] Yoon's office phones requesting office note from October 24 When completed, please fax to [phone] Leonard Cadet [facility]12-31-2024 Miscellaneous Notes* Telephone Encounter - Leonard Cadet - 11/21/2024 3:[address] Yoon's office phones requesting office note from October 24 When completed, please fax to [phone] Leonard Cadet [facility]24 NoteHNO ID: [id number] Author: DAVIDA PRICE MD Service: ? Author Type: Physician Type: Progress Notes Filed: 05/20/2025 17:03 Note Text: Summary: Patient not seen Patient was not seen. Miscommunication between my office and the patient. I was out of the office. Will be rescheduled.[facility]12-03-2024 History of Present illness Narrative* Davida Price MD - 10/24/2024 4:57 PM ESTSummary: Patient not seen Patient was not seen. Miscommunication between my office and the patient. I was out of the office. Will be rescheduled. documented in [facility] Telephone encounter Note * Telephone Encounter - Deonna Patel - 06/22/2024 6:55 AM EDT Gp ref and ges in scanned docs Needs registration [place] [address]-01-2024 Miscellaneous Notes* Telephone Encounter - Deonna Patel - 06/22/2024 6:55 AM EDT Gp ref and ges in scanned docs Needs registration documented in this [facility]Tr[facility]06-[facility]24 Evaluation note* Author Tracy Yoon [facility] Authored May 09, 2024 2:36 pm 58-year-old [...] abdomen/pelvis. Will arrange for gastric emptying study. [facility] Work Phone: 1(823) 679-336203-14-2024 Procedure noteUniversity [facility]01-04-[facility] Evaluation note* Encounter Date Diagnosis Assessment Notes [...] is to continue with famotine and pantoprazole [employer] Other 12-18-2023 Evaluation note* Encounter Date Diagnosis [...] - L90.9) recommend f/u with Dr. Stephenson [employer] Other 10-04-2023 Evaluation note* Encounter Date Diagnosis [...] map diet Pt RTO in 3 months [employer] Other 04-04-2023 Evaluation note* Encounter Date Diagnosis [...] GERD (gastroesophageal reflux disease) (ICD-10 - K21.9) [employer] Other 10-04-2022 Evaluation note* Encounter Date Diagnosis Assessment Notes Treatment Notes Treatment Clinical Notes Aug, GERD (gastroesophageal reflux disease) (ICD-10 - K21.9) Stop Pantoprazole Start Omeprazole 40mg bid, 30 minutes prior to the first meal and last meal of the day. Follow up in 6 months Aug, Nausea & vomiting (ICD-10 - R11.2) [employer] Other Chi complaint+Reason for visit Narrative* Chief Complaint Referral Cheng Hahn lz DM 6 week follow up Reason for Visit Nausea and vomiting [facility] Work Phone: evaluation noteNo [facility] Eye[facility] Other evaluation note* Diagnosis Onset Date Resolution Status Nausea and vomiting acute [facility] Work Phone: Evaluation note* Diagnosis Diabetic ulcer of right midfoot associated with type 2 diabetes mellitus, with muscle involvement without evidence of necrosis (CMS-HCC)- Primary History of transmetatarsal amputation of right foot ([facility]) Visit for wound check documented in this encounter [facility] SystemEvaluation note* Diagnosis Diabetic ulcer of right midfoot associated with type 2 diabetes mellitus, with muscle involvement without evidence of necrosis (CMS-HCC)- Primary History of transmetatarsal amputation of right foot ([facility]) 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 ([facility]) Wound, open, foot with complication, left, initial encounter Unstable ankle, right documented in this encounter [facility] SystemEvaluation note* Diagnosis Benign essential HTN- Primary Type 2 diabetes mellitus with foot ulcer, with long-term current use of insulin (CMS-HCC) Chronic midline low back pain without sciatica Fatty liver disease, nonalcoholic Visit for wound check Hyperglycemia Other abnormal glucose Gastroesophageal reflux disease, unspecified whether esophagitis present documented in this encounter [facility] SystemEvaluation note* Diagnosis Diabetic ulcer of right midfoot associated with type 2 diabetes mellitus, with muscle involvement without evidence of necrosis (CMS-HCC)- Primary 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 ([facility]) documented in this encounter [facility] SystemEvaluation note* Diagnosis Benign essential HTN- Primary [...] of insulin (CMS-HCC) documented in this encounter [facility] SystemEvaluation note* Diagnosis Benign essential HTN- Primary [...] insulin (CMS-HCC)- Primary documented in this encounter [facility] SystemEvaluation note* Diagnosis Gastroparesis- Primary documented in this encounter [facility] noteNo assessment information availableDiley Ridge Medical Center Work Phone: Evaluation note* Diagnosis [...] ulcer, with long-term current use of insulin ([facility]) documented in this encounter [facility] SystemEvaluation note* Diagnosis Benign essential HTN- Primary Type 2 diabetes mellitus with foot ulcer, with long-term current use of insulin ([facility]) Chronic midline low back pain without sciatica Fatty liver disease, nonalcoholic Visit for wound check Hyperglycemia Other abnormal glucose Gastroesophageal reflux disease, unspecified whether esophagitis present Type 2 diabetes mellitus with foot ulcer, with long-term current use of insulin ([facility]) Benign essential HTN Gastroesophageal reflux disease, unspecified whether esophagitis present Chronic midline low back pain without sciatica Encounter for screening for malignant neoplasm of prostate Fatigue, unspecified type Ulcer of right foot with fat layer exposed ([facility])- Primary Type 2 diabetes mellitus with foot ulcer, with long-term current use of insulin ([facility]) Hyperlipidemia, unspecified hyperlipidemia type Gastroesophageal reflux disease, unspecified whether esophagitis present Peripheral artery disease documented in this encounter [facility] SystemEvaluation note* Diagnosis Benign essential HTN- Primary Type 2 diabetes mellitus with foot ulcer, with long-term current use of insulin ([facility]) Chronic midline low back pain without sciatica Fatty liver disease, nonalcoholic Visit for wound check Hyperglycemia Other abnormal glucose Gastroesophageal reflux disease, unspecified whether esophagitis present Type 2 diabetes mellitus with foot ulcer, with long-term current use of insulin ([facility]) Benign essential HTN Gastroesophageal reflux disease, unspecified whether esophagitis present Chronic midline low back pain without sciatica Encounter for screening for malignant neoplasm of prostate Fatigue, unspecified type Ulcer of right foot with fat layer exposed ([facility])- Primary Type 2 diabetes mellitus with foot ulcer, with long-term current use of insulin ([facility]) Hyperlipidemia, unspecified hyperlipidemia type Gastroesophageal reflux disease, unspecified whether esophagitis present Peripheral artery disease Type 2 diabetes mellitus with other circulatory complication, with long-term current use of insulin ([facility])- Primary documented in this encounter [facility] SystemEvaluation note* Diagnosis Benign essential HTN- Primary Type 2 diabetes mellitus with foot ulcer, with long-term current use of insulin ([facility]) Chronic midline low back pain without sciatica Fatty liver disease, nonalcoholic Visit for wound check Hyperglycemia Other abnormal glucose Gastroesophageal reflux disease, unspecified whether esophagitis present Type 2 diabetes mellitus with foot ulcer, with long-term current use of insulin ([facility]) Benign essential HTN Gastroesophageal reflux disease, unspecified whether esophagitis present Chronic midline low back pain without sciatica Encounter for screening for malignant neoplasm of prostate Fatigue, unspecified type Ulcer of right foot with fat layer exposed ([facility])- Primary Type 2 diabetes mellitus with foot ulcer, with long-term current use of insulin ([facility]) Hyperlipidemia, unspecified hyperlipidemia type Gastroesophageal reflux disease, unspecified whether esophagitis present Peripheral artery disease Type 2 diabetes mellitus with other circulatory complication, with long-term current use of insulin ([facility])- Primary Type 2 diabetes mellitus with foot ulcer, with long-term current use of insulin ([facility]) Benign essential HTN Mixed hyperlipidemia due to type 2 diabetes mellitus ([facility]) Gastroesophageal reflux disease, unspecified whether esophagitis present Chronic midline low back pain without sciatica Ulcer of right foot with fat layer exposed ([facility]) documented in this encounter [facility] SystemEvaluation note* Diagnosis Benign essential HTN- Primary Type 2 diabetes mellitus with foot ulcer, with long-term current use of insulin ([facility]) Chronic midline low back pain without sciatica Fatty liver disease, nonalcoholic Visit for wound check Hyperglycemia Other abnormal glucose Gastroesophageal reflux disease, unspecified whether esophagitis present Type 2 diabetes mellitus with foot ulcer, with long-term current use of insulin ([facility]) Benign essential HTN Gastroesophageal reflux disease, unspecified whether esophagitis present Chronic midline low back pain without sciatica Encounter for screening for malignant neoplasm of prostate Fatigue, unspecified type Ulcer of right foot with fat layer exposed ([facility])- Primary Type 2 diabetes mellitus with foot ulcer, with long-term current use of insulin ([facility]) Hyperlipidemia, unspecified hyperlipidemia type Gastroesophageal reflux disease, unspecified whether esophagitis present Peripheral artery disease 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 ([facility]) [E11.628, L84]- Primary documented in this encounter [facility] SystemEvaluation note* Diagnosis Benign essential HTN- Primary Type 2 diabetes mellitus with foot ulcer, with long-term current use of insulin ([facility]) Chronic midline low back pain without sciatica Fatty liver disease, nonalcoholic Visit for wound check Hyperglycemia Other abnormal glucose Gastroesophageal reflux disease, unspecified whether esophagitis present Type 2 diabetes mellitus with foot ulcer, with long-term current use of insulin ([facility]) Benign essential HTN Gastroesophageal reflux disease, unspecified whether esophagitis present Chronic midline low back pain without sciatica Encounter for screening for malignant neoplasm of prostate Fatigue, unspecified type Ulcer of right foot with fat layer exposed ([facility])- Primary Type 2 diabetes mellitus with foot ulcer, with long-term current use of insulin ([facility]) Hyperlipidemia, unspecified hyperlipidemia type Gastroesophageal reflux disease, unspecified whether esophagitis present Peripheral artery disease Ulcer of right foot with fat layer exposed ([facility])- Primary documented in this encounter [facility]History [facility] note Author Tracy Yoon [facility] February 03, 2024 2:08pm Note Date/Time February 03, 2024 2:0 8pm [facility] [address] [place] [address] Gastroenterology H&P Signed Patient: More Kingsley MR#: [id number] : 1965 Acct:[id number] Age/Sex: 58 / M Adm Date: 4 Loc: Room: Type: [facility] Attending Dr: Tracy Yoon MD Copies to: MD Cheng Goodman, RN EMERGENCY ROOM-C~ Date of Service: 02/03/2024 HISTORY & PHYSICAL: [...] signed by Tracy Yoon MD> 02/03/[address] [facility] Work Phone: History general Narrative - Reported* Type Description Date Medical History high blood pressure Medical History high cholesterol Medical History diabetes mallitus Surgical History toes removed on right foot Surgical History left foot Surgical History right eye Hospitalization History Foot [employer] Other History general Narrative - Reported* Type Description Date Medical History high blood pressure Medical History high cholesterol Medical History diabetes mellitus Medical History peripheral neuropathy Medical History fatty liver Medical History retinopathy Surgical History toes removed on right foot Surgical History left foot Surgical History right eye Hospitalization History Foot [employer] 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, BC-ADMNort Eye-Q Other Summary Purpose Family History Relationship Condition [...] Documents on File Type Date Recorded Patient Biology Department Chair Expl anation Advance Directives and Livin g Will 11/06/2020 8:18 PM Latest Code Status on File Code Status Date Activated Date Inactivated Comments Full Code - Unverified 11/05/2020 7:21 PM 11/21/2020 1 0:03 PM Documents on File Type Date Recorded Patient Biology Department Chair Expl anation Advance Directives and Livin g Will 11/06/2020 8:18 PM Latest Code Status on File Code Status Date Activated Date Inactivated Comments Full Code - Unverified 11/05/2020 7:21 PM 11/21/2020 1 0:03 PM Documents on File Type Date Recorded Patient Biology Department Chair Expl anation Advance Directives and Livin g Will 12/19/2020 8:18 PM Documents on File Type Date Recorded Patient Biology Department Chair Expl anation Advance Directives and Livin g Will 12/27/2020 10:17 AM Documents on File Type Date Recorded Patient Biology Department Chair Expl anation Advance Directives and Livin g Will 01/09/2021 10:17 AM Documents on File Type Date Recorded Patient Biology Department Chair Expl anation Advance Directives and Livin g Will 01/24/2021 10:17 AM Documents on File Type Date Recorded Patient Biology Department Chair Expl anation Advance Directives and Livin g [...] proliferative retinopathy type (HCC) Palak Arora MD [address] [place] [id number] Reason Eval and treat/ Food allergy testing. Diagnosis 1 Nausea & vomiting (R 11.2) Referral Organization [facility] Referring Provider First Name Amor Referring Provider Last Name Jim Referring Provider Specialty Gastroenter ology Referred Organization Unknown Facility Referred Provider Specialty Allergy/Immu nology Referral Priority Routine Reason DIABETES MANAGEMENT Diagnosis 1 Diabetes mellitus ty pe 2 with complications (E11.8) Referral Organization [facility] Referring Provider First Name Sebastián Referring Provider Last Name Tyrell Referring Provider Specialty Nurse Pract itioner Referred Organization Unknown Facility Referred Provider Cam Wallis Referred Provider Specialty Endocrinolog y Referral Priority Routine General Notes Suzanne Jordan 10/22 04:07:26 PM >LVM FOR OFFICE TO CALL FOR SCHEDULING. Hospital Course * Palak Arora MD - 11/21/2020 2:49 PM EST HOSPITALIST DISCHARGE SUMMARY Patient: More Kingsley Account: [id number] Admitted: 11/05/2020 Discharge Date/Time: 11/21/2020 Clinical Summary FINAL DIAGNOSIS: Principal Problem: Secondary DM with DKA (HCC) Active Problems: Type 2 diabetes mellitus with retinopathy of both eyes, with long-term current use of insulin (HCC) REASON FOR HOSPITALIZATION AND ADMITTING DIAGNOSIS: No chief complaint on file. Secondary DM with DKA (HCC) [E13.10] HOSPITAL COURSE: More Kingslye is a 54 y.o. male is known [...] Inpatient consult to Endocrinology Inpatient consult to Felt Puller Inpatient consult to Dietitian Inpatient consult to [...] Discharge Diet: Oral nutrition supplements Tyree; Tyree Ethel At dinner Oral nutrition supplements Tyree; Tyree [...] Family: Cheng Staples CNP, , Address: [address] [place] [address] / [place] [address] Follow Up: [facility] [address] [facility] [id number] Schedule an appointment as soon as possible for a visit in 2 week(s) Dr. Arabella [facility] Address: [place] Count[place]: Kris Miranda, Bria, Thomas, Esdras, Radha, Ronald, Adam Johnson [phone] Patient instructions, including activity, were given to [...] sent through Care Everywhere. * Wound Check (Zimbabwean) documented in this encounter History of Present [...] present. Principal Problem: Secondary DM with DKA ([facility]) Active Problems: Type 2 diabetes mellitus with retinopathy of both eyes, with long-term current use of insulin ([facility]) * Joan Trejo LISW - 11/21/2020 12:27 PM EST SIMPLE DISCHARGE Date: 11/21/2020 Time: 12:27 PM Patient Name: More Kingsley Date of : 1965 Sex: Male Patient has him home vac on . He will get his last antibiotic dose early tonight before discharge. [place] will deliver antibiotics this evening to patient's home. [facility] will start care on11/23/2020 around 0900. [place] RN will contact patient this evening to confirm time. [facility] He will contact this worker [...] More Kingsley Jr. Admit Date: MR #: [id number] : 1965 Physicians: Cheng Staples CNP (Family); No ref. provider found (Referring) Assessment: Patient with 1. Left foot abscess, with MSSA 2. Osteomyelitis with MSSA 3. Uncontrolled diabetes. 4. Abdominal pain. 5. Constipation. Plan. Continue patient on current therapyn. Continue patient on IV cefazolin. I reviewed labs, including cultures, with MSSA, and be strep. I appreciate technology program manager evaluation. Patient needs incision and drainage of left foot abscess Dressing according to technology program manager recommendation Endocrinology evaluation for adequate blood sugar [...] (NS), 0-150 mL/hr, Intravenous, PRN, Tanja Whitmore, [facility],PharmD, New Bag at 11/11/20 1615 PMH/PSH/SH/ reviewed, [...] excoriations Musculoskeletal: No joint swelling, non tender FROG FARMER: Awake, and Ox3 Wound: Foot with description [...] retained stool in the proximal colon and svphf-zs-kxjimltm amount of retained stool in the distal [...] No tendon tear or tenosynovitis is seen. [employer] Workstation ID: [id number] MR Foot Right With And Without Contrast Final Result 1. Prior forefoot resection. Cellulitis of the surgical stump is seen associated with small ulceration. 2. No abscess. 3. No MR signs of osteomyelitis. 4. Rljq-oz-tmomabjf mid/hindfoot osteoarthritis. 5. Remote sprains of the ATFL and deep fibers of the deltoid ligament, as above. [email or web address] Workstation ID: [id number] [id number] Foot Left 3+ [...] Endocrine * (Principal) Secondary DM with DKA ([facility]) Relevant Medications insulin glargine (LANTUS) [...] eyes, with long-term current use of insulin ([facility]) Relevant Medications insulin glargine (LANTUS) [...] Arora MD - 11/20/2020 5:[address] [facility] Medicine Inpatient Follow-up 11/20/2020 Palak Arora MD [facility] Patient: More Kingsley Jr. Date of [...] Q8H heparin (porcine) 5,000 Units Subcutaneous Q8H [facility] insulin glargine 25 Units Subcutaneous Nightly lispro insulin 0-15 Units Subcutaneous at bedtime insulin lispro 0-30 Units Subcutaneous Daily before lunch insulin lispro 0-30 Units Subcutaneous Before dinner [START ON 11/21/2020] insulin lispro 0-30 Units Subcutaneous QAM AC pantoprazole 40 mg Oral Daily sodium chloride (PF) 10 mL Intracatheter Q8H [facility] Results/Medications Reviewed 11/20/20 5:49 PM: Results from [...] of bed rail) Sit to Supine: Modified Wilson(HOB elevated) Skilled Intervention: Pt seated EOB ~11 [...] . Prior Level of Function Level of Wilson: Independent with ADLs and functional transfers Lives [...] Occupational Therapy Plan of Care. * Abdoulaye Menjiavr - 11/20/2020 2:52 PM EST DISCHARGE PLAN PROGRESS NOTE Date: 11/20/2020 Time: 2:52 PM Patient Name: More Kingsley Jr. Date of : 1965 Sex: Male This quality assurance/r&d lab technician received call back from [facility], agency able to accept patient and start care on WednesdayNovember 22. Joan social worker psychiatric updated. Abdoulaye Menjivar [facility] Disposition Regulatory Documentation: Medicare IM Regulatory Documentation Status: Signed Signed: Self * Joan Trejo LISW - 11/20/2020 10:35 AM EST DISCHARGE PLAN PROGRESS NOTE Date: 11/20/2020 Time: 10:35 AM Patient Name: More Kingsley Jr. Date of : 1965 Sex: Male [place] contacted this worker. Patient has medicare part [...] due to amount of wound vac drainage. [facility] Disposition Regulatory Documentation: Medicare IM Regulatory Documentation Status: Signed Signed: Self * Marvel Mcmillan MD - 11/20/2020 9:55 AM EST Patient ID: Patient Name: More Kingsley Jr. Admit Date: 11/05/2020 MR #: [id number] : 1965 Current location: [facility] Physicians: Cheng Staples CNP (Family); Dr. Pinedo [...] CPM 11/14: Continue current insulin doses. Consult vulcanizing press operator for gastroparesis diet education. 11/18: CPM 11/19: CPM 11/20 Discharge on 5 H TID ac and 25 Lantus, plus SSI. Can restart metformin 1000 mg BID. [facility] 2. Education: Reviewed ABCs of diabetes management [...] with IV ATB. Pt does live in [place], is willing to follow up in wound [...] More Kingsley . Admit Date: MR #: [id number] : 1965 Physicians: Cheng Staples CNP (Family); No ref. provider found (Referring) Assessment: Patient with 1. Left foot abscess, with MSSA 2. Osteomyelitis with MSSA 3. Uncontrolled diabetes. 4. Abdominal pain. 5. Constipation. Plan. Continue patient on current therapyn. Continue patient on IV cefazolin. I reviewed labs, including cultures, with MSSA, and be strep. I appreciate technology program manager evaluation. Patient needs incision and drainage of left foot abscess Dressing according to technology program manager recommendation Endocrinology evaluation for adequate blood sugar [...] 0-30 Units, 0-30 Units, Subcutaneous, Before dinner, aMrvel Calero MD, 6 Units at 11/19/20 1648 [...] (NS), 0-150 mL/hr, Intravenous, PRN, Tanja Whitmore, [facility],PharmD, New Bag at 11/11/20 1615 PMH/PSH/SH/FH reviewed, [...] excoriations Musculoskeletal: No joint swelling, non tender FROG FARMER: Awake, and Ox3 Wound: Foot with description [...] retained stool in the proximal colon and uxllm-xm-emwdoxzr amount of retained stool in the distal [...] No tendon tear or tenosynovitis is seen. [facility]/[employer] Workstation ID: [id number] MR Foot Right With And Without Contrast Final Result 1. Prior forefoot resection. Cellulitis of the surgical stump is seen associated with small ulceration. 2. No abscess. 3. No MR signs of osteomyelitis. 4. Njqw-by-fctbclhv mid/hindfoot osteoarthritis. 5. Remote sprains of the ATFL and deep fibers of the deltoid ligament, as above. [email or web address] Workstation ID: [id number] [id number] Foot Left 3+ [...] long-term current use of insulin (HCC) * Jaon Trejo LISW - 11/19/2020 3:16 PM EST This worker was advised to sent referral to [facility]. Referral faxed. Message left for Jolo. * Joan Trejo LISW - 11/19/2020 2:31 [...] vac. Patient would like to go home. [facility] notified to check him home infusion benefits. Care coordination following. * Scarlett German - 11/19/2020 12:12 PM EST DISCHARGE PLAN PROGRESS NOTE Date: 11/19/2020 Time: 12:12 PM Patient Name: More Kingsley . Date of : 1965 Sex: Male Spoke with pt regarding [facility], #1 choice [facility] ([phone]). Spoke with [facility] and faxed free text to [phone] the [facility] referral and asked for a return call as soon as possible. Pt discharged possibly tomorrow. 13:18 - Rec'd call from [facility] with [facility] and they CANNOT accept pt due to lack of staffing. Will try # 2 - [facility] ([phone]). 13:21 - Called # 2& spoke to Racquel, Free text referral to fax [phone] @ 13:26. Informed Ranjana via secure chat. 15:25 - Called [facility] and Paola said they never rec'd fax sent at 13:26. Spoke with Ranjana and she said to move on to [facility]'s 2 suggestions 1)[facility] @ [phone]. I called and they have NO staff at this time to service [place]. Moved on to 2) [facility], ([phone]) spoke with Evette and she said I could fax the referral ([phone]) which I did at 15:42. Scarlett German [...] . Prior Level of Function Level of Wilson: Independent with ADLs and functional transfers Lives [...] Kingsley Jr. Admit Date: 11/05/2020 MR #: [id number] : 1965 Current location: [facility] Physicians: Cheng Staples CNP (Family); Dr. Pinedo [...] CPM 11/14: Continue current insulin doses. Consult vulcanizing press operator for gastroparesis diet education. 11/18: CPM 11/19: [...] Medicine Inpatient Follow-up 11/19/2020 Palak Arora MD [facility] Patient: More Kingsley Jr. Date of [...] More Kingsley Jr. Admit Date: MR #: [id number] : 1965 Physicians: Cheng Staples CNP (Family); No ref. provider found (Referring) Assessment: Patient with 1. Left foot abscess, with MSSA 2. Osteomyelitis with MSSA 3. Uncontrolled diabetes. 4. Abdominal pain. 5. Constipation. Plan. Continue patient on current therapyn. Continue patient on IV cefazolin. I reviewed labs, including cultures, with MSSA, and be strep. I appreciate technology program manager evaluation. Patient needs incision and drainage of left foot abscess Dressing according to technology program manager recommendation Endocrinology evaluation for adequate blood sugar [...] (HumaLOG) injection 0-30 Units, 0-30 Units, Subcutaneous, [facility], Marvel Mcmillan MD, 0 Units at 11/16/20 [...] (NS), 0-150 mL/hr, Intravenous, PRN, Tanja Whitmore, [facility],PharmD, New Bag at 11/11/20 1615 PMH/PSH/SH/ reviewed, [...] retained stool in the proximal colon and dbgrs-lm-kyxldjvg amount of retained stool in the distal [...] No tendon tear or tenosynovitis is seen. [employer] Workstation ID: [id number] MR Foot Right With And Without Contrast Final Result 1. Prior forefoot resection. Cellulitis of the surgical stump is seen associated with small ulceration. 2. No abscess. 3. No MR signs of osteomyelitis. 4. Fcbu-xa-lborchdl mid/hindfoot osteoarthritis. 5. Remote sprains of the ATFL and deep fibers of the deltoid ligament, as above. [email or web address] Workstation ID: [id number] XR Foot Left 3+ [...] follow. Rosalinda Reyes RDN, LD Dietitian's Office [phone] * Palak Arora MD - 11/18/2020 9:[address] [facility] Medicine Inpatient H&P 11/18/2020 Palak Arora MD [facility] Patient: More Kingsley Jr. Date of : 1965 (55 y.o.) PCP: Cheng Staples, HOME OFFICE REPRESENTATIVE Assessment More Kingsley is a 54 y.o. [...] Kingsley Jr. Admit Date: 11/05/2020 MR #: [id number] : 1965 Current location: [facility] Physicians: Cheng Staples CNP (Family); Dr. Pinedo [...] CPM 11/14: Continue current insulin doses. Consult vulcanizing press operator for gastroparesis diet education. 11/18: CPM 2. [...] More Kingsley Jr. Admit Date: MR #: [id number] : 1965 Physicians: Cheng Staples CNP (Family); No ref. provider found (Referring) Assessment: Patient with 1. Left foot abscess, with MSSA 2. Osteomyelitis with MSSA 3. Uncontrolled diabetes. 4. Abdominal pain. 5. Constipation. Plan. Continue patient on current therapyn. Continue patient on IV cefazolin. I reviewed labs, including cultures, with MSSA, and be strep. I appreciate technology program manager evaluation. Patient needs incision and drainage of left foot abscess Dressing according to technology program manager recommendation Endocrinology evaluation for adequate blood sugar [...] (NS), 0-150 mL/hr, Intravenous, PRN, Tanja Whitmore [facility],PharmD, New Bag at 11/11/20 1615 PMH/PSH// reviewed, [...] excoriations Musculoskeletal: No joint swelling, non tender FROG FARMER: Awake, and Ox3 Wound: Foot with description [...] retained stool in the proximal colon and sbrsw-hg-ilzozhnf amount of retained stool in the distal [...] No tendon tear or tenosynovitis is seen. [facility] Workstation ID: [id number] MR Foot Right With And Without Contrast Final Result 1. Prior forefoot resection. Cellulitis of the surgical stump is seen associated with small ulceration. 2. No abscess. 3. No MR signs of osteomyelitis. 4. Ilzq-my-iojencaj mid/hindfoot osteoarthritis. 5. Remote sprains of the ATFL and deep fibers of the deltoid ligament, as above. [email or web address] Workstation ID: [id number] XR Foot Left 3+ [...] Arias MD - 11/17/2020 10:[address] [facility] Medicine Inpatient H&P 11/17/2020 Chuyita Arias MD [facility] Patient: More Kingsley Jr. Date of : 1965 (55 y.o.) PCP: Cheng Staples, HOME OFFICE REPRESENTATIVE Assessment More Kingsley is a 54 y.o. [...] retained stool in the proximal colon and aidip-dk-dekyfvrk amount of retained stool in the distal [...] Progress Inpatient Follow-up 11/17/2020 Braeden Conte Meghann [facility] Patient: More Kingsley . Date of [...] 33.21 kg/m Laboratory and Additional Data Reviewed: Reviewed:[id number]} * Marcella Bell MD - 11/16/2020 7:11 PM EST Patient Name: More Kingsley Jr. Admit Date: MR #: [id number] : 1965 Physicians: Cheng Staples CNP (Family); No ref. provider found (Referring) Assessment: Patient with 1. Left foot abscess, with MSSA 2. Osteomyelitis with MSSA 3. Uncontrolled diabetes. 4. Abdominal pain. 5. Constipation. Plan. Continue patient on current therapyn. Continue patient on IV cefazolin. I reviewed labs, including cultures, with MSSA, and be strep. I appreciate technology program manager evaluation. Patient needs incision and drainage of left foot abscess Dressing according to technology program manager recommendation Endocrinology evaluation for adequate blood sugar [...] (NS), 0-150 mL/hr, Intravenous, PRN, Tanja Whitmore, [facility],PharmD, New Bag at 11/11/20 1615 PMH/PSH/SH/ reviewed, [...] excoriations Musculoskeletal: No joint swelling, non tender FROG FARMER: Awake, and Ox3 Wound: Foot with description [...] retained stool in the proximal colon and agpkt-ws-ciglcqvp amount of retained stool in the distal [...] 3. No MR signs of osteomyelitis. 4. Zpfn-uu-txnohlyu mid/hindfoot osteoarthritis. 5. Remote sprains of the [...] Progress Inpatient Follow-up 11/16/2020 Braeden Conte DPM [facility] Patient: More Kingsley Jr. Date of [...] 33.21 kg/m Laboratory and Additional Data Reviewed: Reviewed:[id number]} * Chuyita Arias MD - 11/16/2020 11:[address] [facility] Medicine Inpatient H&P 11/16/2020 Chuyita Arias MD [facility] Patient: More Kingsley . Date of : 1965 (55 y.o.) PCP: Cheng Staples, HOME OFFICE REPRESENTATIVE Assessment More Kingsley is a 54 y.o. [...] retained stool in the proximal colon and plnlf-jd-euqevpkx amount of retained stool in the distal [...] More Kingsley Jr. Admit Date: MR #: [id number] : 1965 Physicians: Cheng Staples CNP (Family); No ref. provider found (Referring) Assessment: Patient with 1. Left foot abscess, with MSSA 2. Osteomyelitis with MSSA 3. Uncontrolled diabetes. 4. Abdominal pain. Plan. Continue patient on current therapyn. Continue patient on IV cefazolin. I reviewed labs, including cultures, with MSSA, and be strep. I appreciate technology program manager evaluation. Patient needs incision and drainage of left foot abscess Dressing according to technology program manager recommendation Endocrinology evaluation for adequate blood sugar [...] (NS), 0-150 mL/hr, Intravenous, PRN, Tanja Whitmore [facility],PharmD, New Bag at 11/11/20 1615 PMH/PS// reviewed, [...] retained stool in the proximal colon and tduva-fd-fgbrdavn amount of retained stool in the distal [...] No tendon tear or tenosynovitis is seen. [facility]/[employer] Workstation ID: [id number] MR Foot Right With And Without Contrast Final Result 1. Prior forefoot resection. Cellulitis of the surgical stump is seen associated with small ulceration. 2. No abscess. 3. No MR signs of osteomyelitis. 4. Lybc-oq-sezbcgnk mid/hindfoot osteoarthritis. 5. Remote sprains of the ATFL and deep fibers of the deltoid ligament, as above. [email or web address] Workstation ID: [id number] XR Foot Left 3+ [...] Progress Inpatient Follow-up 11/15/2020 Braeden Conte DPM [facility] Patient: More Kingsley Jr. Date of [...] antibiotics. Patient sees Dr. Eric Stephenson his technology program manager at [facility] ([phone]) for wound care normally. Patient would like [...] to his home which is up by [facility]. Patient denies nausea vomiting fevers or chills [...] 33.21 kg/m Laboratory and Additional Data Reviewed: Reviewed:[id number]} * Chuyita Arias MD - 11/15/2020 11:[address] [facility] Medicine Inpatient H&P 11/15/2020 Chuiyta Arias MD [facility] Patient: More Kingsley Jr. Date of : 1965 (55 y.o.) PCP: Cheng Staples, HOME OFFICE REPRESENTATIVE Assessment More Kingsley is a 54 y.o. [...] More Kingsley Jr. Admit Date: MR #: [id number] : 1965 Physicians: Cheng Staples CNP (Family); No ref. provider found (Referring) Assessment: Patient with 1. Left foot abscess, with MSSA 2. Osteomyelitis with MSSA 3. Uncontrolled diabetes. Plan. Continue patient on current therapyn. Continue patient on IV cefazolin. I reviewed labs, including cultures, with MSSA, and be strep. I appreciate technology program manager evaluation. Patient needs incision and drainage of left foot abscess Dressing according to technology program manager recommendation Endocrinology evaluation for adequate blood sugar [...] injection 5,000 Units, 5,000 Units, Subcutaneous, Q8H [facility], Chuyita Arias MD, 5,000 Units at 11/14/20 [...] (NS), 0-150 mL/hr, Intravenous, PRN, Tanja Whitmore, [facility],PharmD, New Bag at 11/11/20 1615 PMH/PSH/SH/ reviewed, [...] excoriations Musculoskeletal: No joint swelling, non tender FROG FARMER: Awake, and Ox3 Wound: Foot with description [...] No tendon tear or tenosynovitis is seen. [employer] Workstation ID: [id number] MR Foot Right With And Without Contrast Final Result 1. Prior forefoot resection. Cellulitis of the surgical stump is seen associated with small ulceration. 2. No abscess. 3. No MR signs of osteomyelitis. 4. Ohoe-gn-nhreacjz mid/hindfoot osteoarthritis. 5. Remote sprains of the ATFL and deep fibers of the deltoid ligament, as above. [email or web address] Workstation ID: [id number] XR Foot Left 3+ [...] foot after Dr Cherry had reported to [facility] pt can heel WB only through [...] . Prior Level of Function Level of Wilson: Independent with ADLs and functional transfers Lives [...] Arias MD - 11/14/2020 10:[address] [facility] Medicine Inpatient H&P 11/14/2020 Chuyita Arias MD [facility] Patient: More Kingsley Jr. Date of : 1965 (55 y.o.) PCP: Cheng Staples, HOME OFFICE REPRESENTATIVE Assessment More Kingsley is a 54 y.o. [...] Progress Inpatient Follow-up 11/14/2020 Ryan Conte DPM [facility] Patient: More Kingsley Jr. 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 [place]bro on the wound VAC was approximately a [...] 33.21 kg/m Laboratory and Additional Data Reviewed: Reviewed:[id number]} * Nam Briggs PA-C - 11/14/2020 9:54 AM EST Patient ID: Patient Name: More Kingsley Jr. Admit Date: 11/05/2020 MR #: [id number] : 1965 Current location: [facility] Physicians: Cheng Staples CNP (Family); Dr. Pinedo [...] CPM 11/14: Continue current insulin doses. Consult vulcanizing press operator for gastroparesis diet education. 2. Education: Reviewed [...] you. Electronically signed by: Nam Briggs PA-C, [facility] 11/14/20 9:55 AM * Marcella Bell MD - 11/13/2020 8:26 PM EST Patient Name: More Kingsley Jr. Admit Date: MR #: [id number] : 1965 Physicians: Cheng Staples, ROSALIA (Family); No ref. provider found (Referring) Assessment: Patient with 1. Left foot abscess, with MSSA 2. Suspicion for osteomyelitis 3. Uncontrolled diabetes. Plan. Continue patient on current therapyn. Continue patient on IV cefazolin. I reviewed labs, including cultures, with MSSA, and be strep. I appreciate technology program manager evaluation. Patient needs incision and drainage of left foot abscess Dressing according to technology program manager recommendation Endocrinology evaluation for adequate blood sugar [...] (NS), 0-150 mL/hr, Intravenous, PRN, Tanja Whitmore, [facility],PharmD, New Bag at 11/11/20 1615 PMH/PSH/SH/FH reviewed, [...] excoriations Musculoskeletal: No joint swelling, non tender FROG FARMER: Awake, and Ox3 Wound: Foot with description [...] 3. No MR signs of osteomyelitis. 4. Lkkj-pi-gzicmyfh mid/hindfoot osteoarthritis. 5. Remote sprains of the ATFL and deep fibers of the deltoid ligament, as above. [email or web address] Workstation ID: [id number] XR Foot Left 3+ [...] Arias MD - 11/13/2020 11:[address] [facility] Medicine Inpatient H&P 11/13/2020 Chuyita Arias MD [facility] Patient: More Kingsley Jr. Date of : 1965 (55 y.o.) PCP: Cheng Staples, HOME OFFICE REPRESENTATIVE Assessment More Kingsley is a 54 y.o. [...] Kingsley Jr. Admit Date: 11/05/2020 MR #: [id number] : 1965 Current location: [facility] Physicians: Cheng Staples CNP (Family); Dr. Pinedo [...] eyes, with long-term current use of insulin ([facility]) * Marcella Bell MD - 11/12/2020 2:05 PM EST Patient Name: More Kingsley Jr. Admit Date: MR #: [id number] : 1965 Physicians: Cheng Staples CNP (Family); No ref. provider found (Referring) Assessment: Patient with 1. Left foot abscess, with MSSA 2. Suspicion for osteomyelitis 3. Uncontrolled diabetes. Plan. Continue patient on current therapyn. Continue patient on IV cefazolin. I reviewed labs, including cultures, with MSSA, and be strep. I appreciate technology program manager evaluation. Patient needs incision and drainage of left foot abscess I reviewed MRI of the foot, with Extensive cellulitis, and concern for septic arthroplathy and osteomyelitis of the left foot Dressing according to technology program manager recommendation Endocrinology evaluation for adequate blood sugar [...] (NS), 0-150 mL/hr, Intravenous, PRN, Tanja Whitmore, [facility],PharmD, New Bag at 11/11/20 1615 PMH/PSH/SH/FH reviewed, [...] excoriations Musculoskeletal: No joint swelling, non tender FROG FARMER: Awake, and Ox3 Wound: Foot with description [...] No tendon tear or tenosynovitis is seen. [facility] Workstation ID: [id number] MR Foot Right With And Without Contrast Final Result 1. Prior forefoot resection. Cellulitis of the surgical stump is seen associated with small ulceration. 2. No abscess. 3. No MR signs of osteomyelitis. 4. Uvmb-ab-vnybzjju mid/hindfoot osteoarthritis. 5. Remote sprains of the ATFL and deep fibers of the deltoid ligament, as above. [email or web address] Workstation ID: [id number] XR Foot Left 3+ [...] Arias MD - 11/12/2020 11:[address] [facility] Medicine Inpatient H&P 11/12/2020 Chuyita Arias MD [facility] Patient: More Kingsley Jr. Date of : 1965 (55 y.o.) PCP: Cheng Staples, HOME OFFICE REPRESENTATIVE Assessment More Kingsley is a 54 y.o. [...] IMAGING: Reviewed 11:38 AM * Iliana Aggarwal, SAFETY PIN ASSEMBLING MACHINE OPERATOR - 11/12/2020 10:25 AM EST Physical [...] Stand: Min Stand Pivot Transfers: Contact guard Loan Representative: Wheeled walker Skilled Intervention: Pt required vc [...] . Prior Level of Function Level of Wilson: Independent with ADLs and functional transfers Lives [...] . Prior Level of Function Level of Wilson: Independent with ADLs and functional transfers Lives [...] Kingsley Jr. Admit Date: 11/05/2020 MR #: [id number] : 1965 Current location: [facility] Physicians: Cheng Staples CNP (Family); Dr. Pinedo [...] More Kingsley Jr. Admit Date: MR #: [id number] : 1965 Physicians: Cheng Staples CNP (Family); No ref. provider found (Referring) Assessment: Patient with 1. Left foot abscess 2. Suspicion for osteomyelitis 3. Uncontrolled diabetes. Plan. Continue patient on current therapyn. Continue patient on IV cefazolin. I reviewed labs, including cultures, with MSSA, and be strep. I appreciate technology program manager evaluation. Patient needs incision and drainage of left foot abscess I reviewed MRI of the foot, with Extensive cellulitis, and concern for septic arthroplathy and osteomyelitis of the left foot Dressing according to technology program manager recommendation Endocrinology evaluation for adequate blood sugar [...] 650 mg, 650 mg, Oral, Q6H PRN, Jennifre Gamble CNP, 650 mg at 11/06/20 2104 [...] injection 5,000 Units, 5,000 Units, Subcutaneous, Q8H [facility], Chuyita Arias MD, 5,000 Units at 11/11/20 [...] (NS), 0-150 mL/hr, Intravenous, PRN, Tanja Whitmore, [facility],PharmD PMH/PSH/SH/ reviewed, no change : Review of [...] excoriations Musculoskeletal: No joint swelling, non tender FROG FARMER: Awake, and Ox3 Wound: Foot with description [...] No tendon tear or tenosynovitis is seen. [facility] Workstation ID: [id number] MR Foot Right With And Without Contrast Final Result 1. Prior forefoot resection. Cellulitis of the surgical stump is seen associated with small ulceration. 2. No abscess. 3. No MR signs of osteomyelitis. 4. Kcks-tl-yfaexxwd mid/hindfoot osteoarthritis. 5. Remote sprains of the ATFL and deep fibers of the deltoid ligament, as above. [email or web address] Workstation ID: [id number] XR Foot Left 3+ [...] Date: 11/11/2020 Time: 1:09 PM Patient Name: oMre Kingsley Jr. Date of : 1965 Sex: [...] Arias MD - 11/11/2020 12:[address] [facility] Medicine Inpatient H&P 11/11/2020 Chuyita Arias MD [facility] Patient: More Kingsley Jr. Date of : 1965 (55 y.o.) PCP: Cheng Staples, HOME OFFICE REPRESENTATIVE Assessment More Kingsley is a 54 y.o. [...] Kingsley Jr. Admit Date: 11/05/2020 MR #: [id number] : 1965 Current location: [facility] Physicians: Cheng Staples CNP (Family); Dr. Pinedo [...] (HEP for supine TE) HEP educated for ODC LE therex: 0u98-10 reps In each direction to improve ms and carryover of improved mobility. Print out provided as well. Pt verbally agrees to perform most as long as no back pain. Home Living Type of Home: House Home Layout: One level, Stairs to enter with rails(5 BRINDA, B HR) Prior Level of Function Level of Wilson: Independent with ADLs and functional transfers Lives [...] Progress Inpatient Follow-up 2020 Leanne Cherry DPM [facility] Patient: More Kingsley Jr. Date of [...] calf pain. Laboratory and Additional Data Reviewed: Reviewed:[id number]} * Marcella Bell MD - 2020 2:47 PM EST Patient Name: More Kingsley Jr. Admit Date: MR #: [id number] : 1965 Physicians: Cheng Staples CNP (Family); No ref. provider found (Referring) Assessment: Patient with 1. Left foot abscess 2. Suspicion for osteomyelitis 3. Uncontrolled diabetes. Plan. Continue patient on current therapyn. Continue patient on IV cefazolin. I reviewed labs, including cultures, with MSSA, and be strep. I appreciate technology program manager evaluation. Patient needs incision and drainage of left foot abscess I reviewed MRI of the foot, with Extensive cellulitis, and concern for septic arthroplathy and osteomyelitis of the left foot Dressing according to technology program manager recommendation Endocrinology evaluation for adequate blood sugar [...] injection 5,000 Units, 5,000 Units, Subcutaneous, Q8H [facility], Chuyita Arias MD, 5,000 Units at 11/10/20 1402 [START ON 11/11/2020] insulin glargine (LANTUS) injection 25 Units, 25 Units, Subcutaneous, QAM, Marvel Mcmillan MD insulin glargine (LANTUS) injection 25 Units, 25 Units, Subcutaneous, Nightly, Marvel Mcmillan MD insulin lispro (HumaLOG) injection 0-15 Units, 0-15 Units, Subcutaneous, at bedtime, Jackusman Hair, HOME OFFICE REPRESENTATIVE, 2 Units at 11/06/20 2105 insulin lispro [...] excoriations Musculoskeletal: No joint swelling, non tender FROG FARMER: Awake, and Ox3 Wound: Foot with description [...] 3. No MR signs of osteomyelitis. 4. Fabc-dg-oikxzegi mid/hindfoot osteoarthritis. 5. Remote sprains of the ATFL and deep fibers of the deltoid ligament, as above. [email or web address] Workstation ID: [id number] XR Foot Left 3+ [...] Arias MD - 2020 11:[address] [facility] Medicine Inpatient H&P 2020 Chuyita Arias MD [facility] Patient: More Kingsley . Date of : 1965 (55 y.o.) PCP: Cheng Staples, HOME OFFICE REPRESENTATIVE Assessment More Kingsley is a 54 y.o. [...] More Kingsley Jr. Admit Date: MR #: [id number] : 1965 Physicians: Cheng Satples CNP (Family); No ref. provider found (Referring) Assessment: Patient with 1. Left foot abscess 2. Suspicion for osteomyelitis 3. Uncontrolled diabetes. Plan. Continue patient on current therapyn. Continue patient on IV cefazolin. I reviewed labs, including cultures, with MSSA, and be strep. I appreciate technology program manager evaluation. Patient needs incision and drainage of left foot abscess I reviewed MRI of the foot, with Extensive cellulitis, and concern for septic arthroplathy and osteomyelitis of the left foot Dressing according to technology program manager recommendation Endocrinology evaluation for adequate blood sugar [...] 2 g (premix), 2,000 mg, Intravenous, Q8H, Mayd Tejada CNP, Last Rate: 100 mL/hr at [...] (NS), 0-150 mL/hr, Intravenous, PRN, Tanja Whitmore, [facility],PharmD PMH/PSH/SH/ reviewed, no change : Review of [...] excoriations Musculoskeletal: No joint swelling, non tender FROG FARMER: Awake, and Ox3 Wound: Foot with description [...] No tendon tear or tenosynovitis is seen. MPH/[employer] Workstation ID: [id number] MR Foot Right With And Without Contrast Final Result 1. Prior forefoot resection. Cellulitis of the surgical stump is seen associated with small ulceration. 2. No abscess. 3. No MR signs of osteomyelitis. 4. Gtcn-yu-ucyosevo mid/hindfoot osteoarthritis. 5. Remote sprains of the ATFL and deep fibers of the deltoid ligament, as above. [email or web address] Workstation ID: [id number] Foot Left 3+ [...] Progress Inpatient Follow-up 11/09/2020 Leanne Cherry DPM [facility] Patient: More Kingsley Jr. Date of [...] calf pain. Laboratory and Additional Data Reviewed: Reviewed:[id number]} * Chuyita Arias MD - 11/09/2020 11:[address] [facility] Medicine Inpatient H&P 11/09/2020 Chuyita Arias MD [facility] Patient: More Kingsley Jr. Date of : 1965 (54 y.o.) PCP: Cheng Staples, HOME OFFICE REPRESENTATIVE Assessment More Kingsley is a 54 y.o. [...] Kingsley Jr. Admit Date: 11/05/2020 MR #: [id number] : 1965 Current location: [facility] Physicians: Cheng Staples CNP (Family); Dr. Pinedo [...] More Kingsley Jr. Admit Date: MR #: [id number] : 1965 Physicians: Cheng Staples CNP (Family); No ref. provider found (Referring) Assessment: Patient with 1. Left foot abscess 2. Suspicion for osteomyelitis 3. Uncontrolled diabetes. Plan. Continue patient on current therapy Okay to DC IV vancomycin Okay to DC IV Zosyn. Start patient on IV cefazolin. I reviewed labs, including cultures, with MSSA, and be strep. I appreciate technology program manager evaluation. Patient needs incision and drainage of left foot abscess I reviewed MRI of the foot, with Extensive cellulitis, and concern for septic arthroplathy and osteomyelitis of the left foot Dressing according to technology program manager recommendation Endocrinology evaluation for adequate blood sugar [...] (NS), 0-150 mL/hr, Intravenous, PRN, Tanja Whitmore, [facility],PharmD PMH/PSH/SH/ reviewed, no change : Review of [...] excoriations Musculoskeletal: No joint swelling, non tender FROG FARMER: Awake, and Ox3 Wound: Foot with description [...] No tendon tear or tenosynovitis is seen. MPH/[employer] Workstation ID: [id number] MR Foot Right With And Without Contrast Final Result 1. Prior forefoot resection. Cellulitis of the surgical stump is seen associated with small ulceration. 2. No abscess. 3. No MR signs of osteomyelitis. 4. Xlhe-jg-mcjalter mid/hindfoot osteoarthritis. 5. Remote sprains of the ATFL and deep fibers of the deltoid ligament, as above. [email or web address] Workstation ID: [id number] Foot Left 3+ [...] Arias MD - 11/08/2020 12:[address] [facility] Medicine Inpatient H&P 11/08/2020 Chuyita Arias MD [facility] Patient: More Kingsley . Date of : 1965 (54 y.o.) PCP: Cheng Staples, HOME OFFICE REPRESENTATIVE Assessment More Kingsley is a 54 y.o. [...] Kingsley Jr. Admit Date: 11/05/2020 MR #: [id number] : 1965 Current location: [facility] Physicians: Cheng Staples CNP (Family); Dr. Pinedo [...] Progress Inpatient Follow-up 11/08/2020 Ryan Conte DPM [facility] Patient: More Kingsley Jr. Date of [...] calf pain. Laboratory and Additional Data Reviewed: Reviewed:[id number]} * Marcella Bell MD - 11/07/2020 7:38 PM EST Patient Name: More Kingsley Jr. Admit Date: MR #: [id number] : 1965 Physicians: Cheng Staples, HOME OFFICE REPRESENTATIVE (Family); No ref. provider found (Referring) Assessment: Patient with 1. Left foot abscess 2. Suspicion for osteomyelitis 3. Uncontrolled diabetes. Plan. Continue patient on current therapy Okay to DC IV vancomycin Okay to DC IV Zosyn. Start patient on IV cefazolin. I reviewed labs, including cultures, with MSSA, and be strep. I appreciate technology program manager evaluation. Patient needs incision and drainage of left foot abscess I reviewed MRI of the foot, with Extensive cellulitis, and concern for septic arthroplathy and osteomyelitis of the left foot Dressing according to technology program manager recommendation Endocrinology evaluation for adequate blood sugar [...] excoriations Musculoskeletal: No joint swelling, non tender FROG FARMER: Awake, and Ox3 Wound: Foot with description [...] No tendon tear or tenosynovitis is seen. MPH/[employer] Workstation ID: [id number] MR Foot Right With And Without Contrast Final Result 1. Prior forefoot resection. Cellulitis of the surgical stump is seen associated with small ulceration. 2. No abscess. 3. No MR signs of osteomyelitis. 4. Zfnz-pp-oshdmsjp mid/hindfoot osteoarthritis. 5. Remote sprains of the ATFL and deep fibers of the deltoid ligament, as above. [email or web address] Workstation ID: [id number] Foot Left 3+ [...] Inpatient Progress Note 11/07/2020 Leanne Cherry DPM [facility] Patient: More Kingsley Jr. Date of [...] Farley MD - 11/07/2020 11:[address] [facility] Medicine Inpatient H&P 11/07/2020 Jean Farley MD [facility] Patient: More Kingsley Jr. Date of : 1965 (54 y.o.) PCP: Cheng Staples, HOME OFFICE REPRESENTATIVE Assessment More Kingsley is a 54 y.o. [...] Kingsley Jr. Admit Date: 11/05/2020 MR #: [id number] : 1965 Current location: [facility] Physicians: Cheng Staples CNP (Family); Dr. Pinedo [...] you. Marvel Mcmillan MD * Rafat Miller, [facility],PharmD - 11/07/2020 8:06 AM EST PHARMACOTHERAPY NOTE: [...] 11/05/20 105 kg (231 lb 7.7 oz) [place] body weight: 73 kg (160 lb 15 [...] seen Pharmacist: Rafat Miller RPh,PharmD Contact Number: [phone] * Jean Farley MD - 11/06/2020 9:18 AM EST [facility] Inpatient H&P 11/06/2020 Jean Farley MD [facility] Patient: More Kingsley Date of : 1965 (54 y.o.) PCP: Cheng Staples, HOME OFFICE REPRESENTATIVE Assessment More Kingsley is a 54 y.o. [...] IMAGING: Reviewed 9:19 AM * Jose Read [facility],PharmD - 11/05/2020 8:47 PM EST PHARMACOTHERAPY NOTE: [...] 11/05/20 105 kg (231 lb 7.7 oz) [place] body weight: 73 kg (160 lb 15 [...] pending Pharmacist: Jose Read RPh,PharmD Contact Number: [phone] documented in this encounter* Phu Buck RN - 11/20/2020 8:44 AM EST 11/20/2020 Call from Frances in [facility] this am confirming that pt is out of service area for [facility] andPharmacy. This RN had notified CM team of same on 11/19. Patient lives in [place], [place] so CM sendingreferral to [place]. [facility] and IV Infusion: Pt lives outside of the [facility] area for both Home Health and Pharmacy. documented in this encounter* Monica Jalloh, ISAIAS - 12/19/2020 2:30 PM EST Nurse wore gloves and mask while taking care of patient. Patient wearing mask at all times while staff in the room. * Marcella Bell MD - 12/19/2020 2:21 PM EST Patient Name: More Kingsley Jr. Admit Date: MR #: [id number] : 1965 Physicians: Cheng Staples CNP (Family); [...] MSSA, and be strep. Dressing according to technology program manager recommendation Endocrinology evaluation for adequate blood sugar [...] cultures, bone culture with no growth. Follow-up technology program manager. I reviewed CBC, and C-reactive protein with 10.9 kidneys BUN and creatinine 9 and 0.72 Follow-up in 3 weeks. Okay with surgical shoe. Subjective: Patient is being reevaluated again today, he was followed in [facility] in the month of October 2020, at that time he had presented with left foot swelling and redness and alsowith some draining pus. He was evaluated and found with abscess of the left foot, and osteomyelitis. Patient then had technology program manager debridement and drainage. Wound culture then had [...] excoriations Musculoskeletal: No joint swelling, non tender FROG FARMER: Awake, and Ox3 PICC line in place. [...] and PT pulses nonpalpable secondary to edema. BENCH TECHNICIAN is brisk to distal digits. Gross sensation [...] More Kingsley Jr. Admit Date: MR #: [id number] : 1965 Physicians: Cheng Staples CNP (Family); No ref. provider found (Referring) Assessment: Patient with 1. Left foot abscess, with MSSA 2. Osteomyelitis with MSSA 3. Uncontrolled diabetes. 4. Abdominal pain. 5. Constipation. Plan. Continue patient on current therapy. Status post IV cefazolin. Had antibiotics for more than 8 weeks. I reviewed labs, including cultures, with MSSA, and be strep. Dressing according to technology program manager recommendation Endocrinology evaluation for adequate blood sugar control We will continue to follow with you. Status post debridement. Reviewed previous bone cultures with MSSA. I reviewed labs. I reviewed CT scan of the abdomen and pelvis, with moderate large amount of retained stool in the proximal colon. Status post incision and drainage of the left ankle foot. Follow-up technology program manager. Follow-up in 3 to 4 weeks. I reviewed bone biopsy on fifth February with no growth I discussed with the technology program manager on management plan. Dr. Cherry, scheduling for reconstruction of the left foot. Okay to switch to p.o. Keflex for the next 2 weeks. Okay to DC PICC line. Follow-up x-ray of the left foot. Subjective: Patient is being reevaluated again today, he was followed in [facility] in the month of October 2020, at that time he had presented with left foot swelling and redness and alsowith some draining pus. He was evaluated and found with abscess of the left foot, and osteomyelitis. Patient then had technology program manager debridement and drainage. Wound culture then had [...] the left Charcot foot area by the technology program manager. He is not complaining of any new [...] excoriations Musculoskeletal: No joint swelling, non tender FROG FARMER: Awake, and Ox3 PICC line in place. [...] and PT pulses nonpalpable secondary to edema. BENCH TECHNICIAN is brisk to distal digits. Gross sensation [...] with transportation. Patient has been driving from [facility], which takes him 1.5 hours. Patient would [...] More Kingsley Jr. Admit Date: MR #: [id number] : 1965 Physicians: Cheng Staples CNP (Family); [...] on tissue exam 11/18/20 Dressing according to technology program manager recommendation - currently with VAC dressing Status post debridement, I&D Follow up bone biopsy and wound culture 12/27/20 with no growth Continue working on blood sugar control (last A1c 8.2) Delivery Lead Dr. Cherry planning reconstruction of the left [...] wound clinic today, also coming to see technology program manager. There is someincreased swelling to the base [...] excoriations Musculoskeletal: No joint swelling, non tender FROG FARMER: Awake, and Ox3 Wound: 3/5 . ---> [...] More Kingsley Jr. Admit Date: MR #: [id number] : 1965 Physicians: Cheng Staples CNP (Family); [...] drainage of the left ankle foot. Follow-up technology program manager. Follow-up in 3 to 4 weeks. I [...] was noted. Patient scheduled to see the technology program manager Dr. Waller on second opinion, suggest been recommended for constructive foot surgery.. Subjective: Patient is being reevaluated again today, he was followed in [facility] in the month of October 2020, at that time he had presented with left foot swelling and redness and alsowith some draining pus. He was evaluated and found with abscess of the left foot, and osteomyelitis. Patient then had technology program manager debridement and drainage. Wound culture then had [...] the left Charcot foot area by the technology program manager. He is not complaining of any new [...] excoriations Musculoskeletal: No joint swelling, non tender FROG FARMER: Awake, and Ox3 Off PICC line Wound: [...] section and content) DATE CREATED AUTHOR [facility]/10/2019 [facility] DATE CREATED AUTHOR AUTHOR'S ORGANIZ ATION 11/21/2020 [facility] DATE CREATED AUTHOR AUTHOR'S ORGANIZ ATION 02/07/2021 [facility] DATE CREATED AUTHOR AUTHOR'S ORGANIZ ATION 02/11/2021 [facility] DATE CREATED AUTHOR AUTHOR'S ORGANIZ ATION 04/04/2021 [facility] DATE CREATED AUTHOR AUTHOR'S ORGANIZ ATION 03/22/2023 [facility] DATE CREATED AUTHOR AUTHOR'S ORGANIZ ATION 03/13/2024 [facility] dical [facility] DATE CREATED AUTHOR AUTHOR'S ORGANIZ ATION 04/22/2025 [facility] DATE CREATED AUTHOR AUTHOR'S ORGANIZ ATION 05/20/2025 [facility] DATE CREATED AUTHOR AUTHOR'S ORGANIZ ATION 08/11/2025 [facility] DATE CREATED AUTHOR AUTHOR'S ORGANIZ ATION 08/13/2025 [facility] DATE CREATED AUTHOR AUTHOR'S ORGANIZ ATION 08/27/2025 [facility] Reason for Visit (unrecogniz ed section and content) Reason Comments Wound Check Specialty Diagnoses / Procedures Referred By Contac t Referred To Contact Wound Care Diagnoses Visit for wound check Lakshmi Figueroa APRN-HOME OFFICE REPRESENTATIVE [address] [place] [address] Phone: tel: fax: [facility] [address] [place] [address] Phone: tel: fax: Referral ID Status Reason Start Date Expiration Date Visits Requested Visits Authorized [id number] Pending Review Specialty Services Required 03/04/2025 03/04/2026 1 1 Status Reason Specialty Diagnoses / Procedures Referre d By Contact Referred To Contact Diagnoses Secondary DM with DKA (HCC) Left foot cellulitis; DKA Reason Comments Sleeve Wheel Maker - Other Dr Yoon's offi ce/request for office note Reason Comments Care Coordination Gastroparesis clinic : chart review; new patient call Reason Comments Wound Check Specialty Diagnoses / Procedures Referred By Contac t Referred To Contact Wound Care Diagnoses Visit for wound check Lakshmi Figueroa APRN-HOME OFFICE REPRESENTATIVE [address] [place] [address] Phone: tel: fax: [facility] [address] [place] [address] Phone: tel: fax: Referral ID Status Reason Start Date Expiration Date Visits Requested Visits Authorized [id number] Pending Review Specialty Services Required 03/04/2025 03/04/2026 1 1 Reason Comments Care Coordination Appeal for GPOEM den ial Reason Comments Establish Care Specialty Diagnoses / Procedures Referred By Contac t Referred To Contact Internal Medicine Diagnoses Visit for wound check Hyperglycemia Lakshmi Figueroa APRN-HOME OFFICE REPRESENTATIVE [address] [place] [address] Phone: tel: fax: Vahe Solares MD [address] [place] [address] Phone: tel: fax: Referral ID Status Reason Start Date Expiration Date Visits Requested Visits Authorized [id number] Pending Review Specialty Services Required 03/04/2025 03/04/2026 1 1 Reason Comments Wound Check Specialty Diagnoses / Procedures Referred By Contac t Referred To Contact Wound Care Diagnoses Visit for wound check Lakshmi Figueroa APRN-HOME OFFICE REPRESENTATIVE [address] [place] [address] Phone: tel: fax: [facility] [address] [place] [address] Phone: tel: fax: Referral ID Status Reason Start Date Expiration Date Visits Requested Visits Authorized [id number] Pending Review Specialty Services Required 03/04/2025 03/04/2026 [...] MIN NEW DDI PATIENT Tracy Yoon MD [address] [place] [address] Phone: tel: fax: Dolly Hyatt, PhD [address] [place] [address] Phone: tel: fax: Referral ID Status Reason Start Date Expiration Date Visits Re quested Visits Authorized [id number] Closed 09/28/2024 11/21/2024 2 2 Reason Onset [...] More Kingsley Jr. Admit Date: MR #: [id number] : 1965 The H&P has been reviewed and the patient has been examined. I concur with the findings of the H&P. There are no significant changes. It is appropriate to proceed with the planned procedure. Leanne Cherry DPM 11/18/2020 12:30 PM Progress Inpatient Follow-up 11/17/2020 Braeden Conte, ELIE [facility] Patient: More Kingsley Jr. Date of [...] 33.21 kg/m Laboratory and Additional Data Reviewed: Reviewed:[id number]} [facility] Medicine Inpatient H&P 11/05/2020 Flako Pinedo MD [facility] Patient: More Kingsley Date of : 1965 (54 y.o.) PCP: Cheng Staples, HOME OFFICE REPRESENTATIVE Assessment More Kingsley is a 54 y.o. [...] EST Consult Notes (unrecognized section and content) [facility] went with Dr. Kumar, technology program manager, to patient's room . Dr. Kumar removed remainder of black foam from tunnel at 11 oclock. [facility] requested and received order change to white foam over bone and in tunnel areas, then black foam and negative pressure increased to 150mm/hg. Wound dressed per orders with 3 pieces total white foam, two pieces black foam to top. Negative pressure maintained and patient tolerated well. Patient dressing was attached to home vac at this time. Paperwork signed for vac by patient. [facility] educated patient on charging, what to bring to future wound care appointments for dressing changes and all questions answered. [facility] in to see patient for wound vac dressing change. [facility] removed intact vac dressing as described to proposal writer by Dr. Cherry. [facility] removed one piece black foam from top of dressing. [facility] removed one piece black foam packed from 9 oclock area over to undermining in 2-4 oclock area. [facility] removed one piece black foam from 7 oclock area. There remains one piece black foam in 11 oclock area (toward medial ankle) that is adhered to tunneling and exposed bone and could not be removed intact. [facility] placed ns moist gauze dressing temporarily until discusses with podiatry. IV team consulted for PICC placement. Chart and history reviewed. PICC insertion explained to patient , agreed to procedure. Single lumen PICC inserted following [place] Protocol into cephalic vein. PICC trimmed at [...] The home vac has been approved thru [facility] when the time comes for discharge home [...] deficit. The patient's home setup is a payment specialist, limitations of family / caregiver support is a barrier for return to prior level of function. The patient's education level is a payment specialist, awareness of own capacity and performance is a payment specialist to return to prior level of function. [...] foot unclear and OT to clarify with technology program manager post evaluation this date. Home Living Type of Home: House Home Layout: One level, Stairs to enter with rails Bathroom Shower/Tub: Tub/shower unit Bathroom Toilet: Standard(Low toilet per pt.) Home Equipment: (Crutches) Additional Comments: Pt prefers to be called Carlitos . Prior Level of Function Level of Wilson: Independent with ADLs and functional transfers Lives [...] HR) Prior Level of Function Level of Wilson: Independent with ADLs and functional transfers Lives [...] completion of Physical Therapy Plan of Care. [facility] in to see patient for wound vac [...] patient in patient's room. Patient educated to social worker psychiatric role. Patient reports that he resides at [...] Patient Name: More Kingsley Jr. MR #: [id number] : 1965 Physicians: Cheng Staples CNP (Family); [...] file Gets together: Not on file Attends judaism service: Not on file Active member of [...] 15-20 maintain Follow-up labs, including cultures Follow-up technology program manager Patient needs incision and drainage of left foot abscess Consider MRI of the left foot Dressing according to technology program manager recommendation Endocrinology evaluation for adequate blood sugar [...] contextual derivation. Associated Order(s): IP CONSULT TO CREATIVE SERVICES SPECIALIST Met with pt for diabetes education. Pt [...] feel like he is going to vomit. 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 He mentions often going to [employer] & ordering a double cheeseburger with a medium Kinyarwanda macias and medium diet soda. Occasional milk [...] Podiatry Inpatient Consult 11/06/2020 Braeden Conte, ELIE [facility] Patient: More Kingsley Date of : [...] the last 2 weeks. Patient is from [facility] where he was transferred down here to be evaluated and treated. Patient lost his right forefoot 3 years ago due to infection. 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 History of Present Illness: More Kingsley is a 54 y.o. male presenting from [facility] with complaint of left midfoot abscess and [...] More Kingsley Admit Date: 11/05/2020 MR #: [id number] : 1965 Current location: [facility] Physicians: Cheng Staples CNP (Family); Dr. Pinedo [...] (55 y.o.) Date of Service: 11/18/2020 CSN: [id number] Procedure(s): INCISION AND DRAINAGE FOOT/ANKLE with Application of Wound Vac Pre-Operative Diagnoses: * Abscess of left ankle Post-Operative Diagnoses: * Same as Pre-Op Diagnosis Surgeon(s) and Role: * Leanne Cherry DPM - Primary Anesthesiologist: Almas Gutierrez MD MAKING DEPARTMENT PREPARER: Kathrine Page CRNA Anesthesiologist Vp Global: SUNDEEP Machado Insurance Marketing Rep: Kathrine Rice RN; Paola German RN Scrub [...] Odor None 11/18/20 0800 Wound Bed Characteristics [place] 11/17/20 0815 Debi-wound Assessment Brown;Scaly 11/16/20 0506 [...] (55 y.o.) Date of Service: 11/11/2020 CSN: [id number] Procedure(s): DEBRIDEMENT AND DRESSING CHANGE APPLICATION WOUND VAC Pre-Operative Diagnoses: * Abscess, left foot Post-Operative Diagnoses: * Same as Pre-Op Diagnosis Surgeon(s) and Role: * Leanne Cherry DPM - Primary Anesthesiologist: Javi Barriga MD MAKING DEPARTMENT PREPARER: Jasmine Gauthier CRNA Anesthesiologist Vp Global: SUNDEEP Machado Insurance Marketing Rep: Kathrine Rice RN; Evie Hunt RN Scrub [...] TAMARAN, RN Clinical Documentation Improvement [facility] [phone] After business hours you may contact Arianna Hooks at [phone] (Weekdays until 10 PM and weekends 8 [...] Provider Act albaro Start: February 03, 2024 Registered Dietician Relationship Specialty Start Date End Date Jonny Zhu MD [address] [place] [id number] PCP - General Family Medicine 01/06/24 Cheng Staples NP [address] [place] [phone] Nurse Practitioner Family Medicine 07/23/23 Cheng Staples NP [address] [place] [id number] Nurse Practitioner Family Medicine 01/06/24 Team Status: [...] June 12, 2024 End: June 12, 2024 Registered Dietician Relationship Specialty Start Date End Date Cheng Staples APRN-HOME OFFICE REPRESENTATIVE PCP - General Nurse Practitioner 03/05/25 Registered Dietician Relationship Specialty Start Date End Date Cheng Staples APRN-HOME OFFICE REPRESENTATIVE PCP - General Nurse Practitioner 03/05/25 Registered Dietician Relationship Specialty Start Date End Date Art Freeman DO [address] [place] [address], [place] [address] PCP - General Family Medicine 04/26/25 Registered Dietician Relationship Specialty Start Date End Date Cheng Staples APRN-HOME OFFICE REPRESENTATIVE PCP - General Nurse Practitioner 03/05/25 Registered Dietician Relationship Specialty Start Date End Date Art Freeman DO [address], [address] [place] [address] PCP - General Family Medicine 04/26/25 Registered Dietician Relationship Specialty Start Date End Date Art Freeman DO [address], [address], [place] [address] PCP - General Family Medicine 04/26/25 Registered Dietician Relationship Specialty Start Date End Date Art Freeman DO [address], [address] [place] [address] PCP - General Family Medicine 04/26/25 Registered Dietician Relationship Specialty Start Date End Date Art Freeman DO [address], [address], [place] [address] PCP - General Family Medicine 04/26/25 Team [...] June 28, 2025 End: June 28, 2025 Registered Dietician Relationship Specialty Start Date End Date Art Freeman DO [address] [facility], [address] [place] [address] PCP - General Family Medicine 04/26/25 Registered Dietician Relationship Specialty Start Date End Date Art Freeman DO [address] [facility], [address], [place] [address] PCP - General Family Medicine 04/26/25 Team Status: Active Member Role Status Dates NON STAFF Primary Care Provider Active Team Status: Inactive Member Role Status Dates Chan Quintanilla MD Attending Provider Active Start: July 09, 2025 End: July 09, 2025 NON STAFF Primary Care Provider Active Start: July 09, 2025 End: July 09, 2025 Registered Dietician Relationship Specialty Start Date End Date Art Freeman DO [address] [facility], [facility] [address] [place] [address] PCP - General Family Medicine 04/26/25 Registered Dietician Relationship Specialty Start Date End Date Art Freeman DO [address] [facility], [facility] [address], [place] [address] PCP - General Family Medicine 04/26/25 Registered Dietician Relationship Specialty Start Date End Date Art Freeman DO [address] [facility], [facility] [address], [address] [place] [address] PCP - General Family Medicine 04/26/25 Registered Dietician Relationship Specialty Start Date End Date Art Freeman DO [address] [facility], [address], [place] [address] PCP - General Family Medicine 04/26/25 Registered Dietician Relationship Specialty Start Date End Date Art Freeman DO [address] [facility] [address], [place] [address] PCP - General Family Medicine 04/26/25 Team [...] August 22, 2025 End: August 22, 2025 Registered Dietician Relationship Specialty Start Date End Date Art Freeman DO [address] [facility] [address], [place] [address] PCP - General Family Medicine 04/26/25 Goals [...] or prosecute any alcohol or drug abuse patient.[facility] CenterIn the event this information is protected by the Federal Confidentiality of Alcohol and Drug Abuse Patient Records regulations: The Federal rules restrict any use of the information to criminally investigate or prosecute any alcohol or drug abuse patient.[facility] CenterIn the event this information is protected by the Federal Confidentiality of Alcohol and Drug Abuse Patient Records regulations: The Federal rules restrict any use of the information to criminally investigate or prosecute any alcohol or drug abuse patient.[facility] CenterIn the event this information is protected by the Federal Confidentiality of Alcohol and Drug Abuse Patient Records regulations: The Federal rules restrict any use of the information to criminally investigate or prosecute any alcohol or drug abuse patient.[facility] CenterIn the event this information is protected by the Federal Confidentiality of Alcohol and Drug Abuse Patient Records regulations: The Federal rules restrict any use of the information to criminally investigate or prosecute any alcohol or drug abuse patient.[facility] CenterIn the event this information is protected by the Federal Confidentiality of Alcohol and Drug Abuse Patient Records regulations: The Federal rules restrict any use of the information to criminally investigate or prosecute any alcohol or drug abuse patient.[facility] CenterIn the event this information is protected by the Federal Confidentiality of Alcohol and Drug Abuse Patient Records regulations: The Federal rules restrict any use of the information to criminally investigate or prosecute any alcohol or drug abuse patient.[facility] FOR RECORDS PERTAINING TO PATIENTS WHO ARE [...] BE BASED ON THE PRIMARY CLINICAL RECORDS. [facility] [employer] [facility]. provides no warranty or guarantee of the accuracy or completeness of information in this document.
== END 2025-09-10 13:23 | disposition home or self-care (01) ==
LOC: WC 13:22
PROVIDERS: PCP Family Medicine; Visit Provider Podiatrist Foot & Ankle Surgery
DX: E11.621 Type 2 diabetes mellitus with foot ulcer (principal); L97.415 Non-pressure chronic ulcer of right heel and midfoot with muscle involvement without evidence of necrosis
CPT/HCPCS: 29445

== ENCOUNTER 2025-09-19 10:24 | Outpatient (OUT) | payer MEDICARE, SELFPAY ==
--- OUTSIDE RECORDS SUMMARY | 2025-09-12 07:02 | XMS_ITS | Continuity of Care Document ---
Author Organization [facility] Address [address] [place] [address] Phone Care Team Providers Care Spool Worker Name Role Phone Marilee Staples NP-C Primary Care Provider aCthy العراقي NP-C Attending Provider [phone] Ghulam Quintanilla MD Attending Provider [phone] NON STAFF Primary Care Provider Unavailke e Ghulam Quintanilla MD Other Provider Care Teams Patient Care Team Team Status: Active Member Role/Relationship Status Dates NON STAFF Primary Care Provider Active Visit Care Team Team Status: Inactive Member Role/Relationship Status Dates Marilee Staples NP-C Primary Care Provider Active Start: June 28, 2025 End: June 28, 2025Rory Pardo ProviderActiveStart: June 28, 2025 End: June 28, 2025 Visit Care Team Team Status: Inactive Member Role/Relationship Status Dates Marilee Staples NP-C Primary Care Provider Active Start: June 28, 2025 End: June 28, 2025Ghulam Quintanilla MDAttshahab ProviderActiveStart: June 28, 2025 End: June 28, 2025 Visit Care Team Team Status: Inactive Member Role/Relationship Status Dates Ghulam Quintanilla MD Attending Provider Active Start: July 09, 2025 End: July 09, 2025NON STAFFPrimary Care ProviderActiveStart: July 09, 2025 End: July 09, 2025 Visit Care Team Team Status: Active Member Role/Relationship Status Dates Ghulam Quintanilla MD Attending Provider Active Start: July 16, 2025 Ghulam Quintanilla MDOther ProviderActiveStart: July 16, 2025 NON STAFFPrimary Care ProviderActiveStart: July 16, 2025 Visit Care Team Team Status: Inactive Member Role/Relationship Status Dates ALISHA Pardo Attending Provider Active Start: August 22, 2025 End: August 22, 2025NON STAFFPrimary Care ProviderActiveStart: August 22, 2025 End: August 22, 2025 Patient Care Team Team Status: Inactive Member Role/Relationship Status Dates NON STAFF Primary Care Provider Active Start: September 12, 2025 End: September 12, 2025Mabashir Quintanilla MDAttending ProviderActiveStart: September 12, 2025 End: September 12, 2025 Chief Complaint and Reason for Visit Chief Complaint Admit Date Ref by Nii, right lower extremity PVD June 28, 2025 9:55am I73.9, ADDED ON 06/28/25 11:30A June 11:23am PAD w/ Non Healing Diabetic Ulcer July 09, 2025 8:15am PAD w/ Non Healing Diabetic Ulcer July 16, 2025 12:00am I65.23 August 22, 2025 8: 16am To go over CT Scan; CT Scan done at [facility] September 12, 2025 10:38am Reason for Visit Admit Date Diabetic ulcer of right foot June 28, 2025 9:55am 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 June 28, 2025 9:55am PAD (peripheral artery disease) June 282024 9:55am Reason for Referral Type Reason(s) Provider Provider Contact Information Gurvinder jasson Address Start Date FU PRNFU PRNMlaury Quintanilla MDWork Phone: [phone] [facility] [address] [place] [address] Allergies, Adverse Reactions, Alerts Allergen Type Severity Reaction Last Updated Verified Status bee venom protein (honey bee) Allergy Unknown Anaphylaxis September 12 10:43am Yes Active Social History Smoking Status Status Start Date End Date Date of Observa tion Ex-smoker (finding) February 03, 2024 12:59pm Observation Status Observation Response Date of Response Legal Sex Male (finding) [facility] 1964 Family History Relationship Condition Age at Onset Recorded Date/T heather mother Diabetes mellitus Unknown sisterDiabetes mellitusUnknownfatherHeart problemUnknownDeceasedUnknown Problems Active Problems Problem Diagnosis/Recorded Date Onset Date Status C omments Elevated alkaline phosphatas e level June 28, 2025 10:47am Unknown Active Insulin long-term useAugust 2024 10:47amUnknownActiveOcclusion and stenosis of bilateral carotid arteriesAugust 2024 1:43pmUnknownActiveGastroparesis December 14, 2024 11:17amUnknownActiveDiabetesFebruary 2019 8:31amUnknown ActiveProblem List clean-up per request of Phys. EHR CmteFatty liverAugust 2024 10:47amUnknownActiveType 2 diabetes mellitusAugust 2024 10:47amUnknown ActiveHigh cholesterolAugust 2024 10:48amUnknownActiveHyperlipidemiaAugust 2024 10:47amUnknownActiveDiabetic ulcer of right footAugust 2024 1:42pmUnknownActiveDiabetes mellitus type 2 with complicationsAugust 2024 10:47amUnknownActivePeripheral neuropathyAugust 2024 10:47amUnknownActive RetinopathyAugust 2024 10:47amUnknownActiveEpigastric painAugust 2024 10:47amUnknownActiveBMI 36.0-36.9,adultAugust 2024 10:47amUnknownActivePAD (peripheral artery disease)June 28, 2025 1:42pmUnknownActiveGERD (gastroesophageal reflux disease)January 18, 2020 8:31amUnknownActiveProblem List clean-up per request of Phys. EHR CmteGERD (gastroesophageal reflux disease)June 28, 2025 10:47amUnknownActiveNausea and vomitingFebruary 2023 9:30amUnknownActiveHigh blood pressureAugust 2024 10:48amUnknownActive NauseaAugust 2024 10:47amUnknownActiveVomitingAugust 2024 10:48am UnknownActive Medications Medication Status Dose Units Route Directions Qty Days Refills S tart Date Stop Date End Date Reason(s) Instructions Adherence Atorvastatin 40 mg tablet Discontinued 40 MG PO D aily January 18, 2020 1:00amOctober 2024 10:44amInsulin Glargine (Lantus U- 100 Insulin) 100 unit/mL JetzhxmyGmzhwsvzzmjb92JUBXYWPJHDBbhsz at bedtime January 18, 2020 1:00amJune 2023 2:20pmMetformin 1,000 mg tablet Wvtfzahvqvof7333ACWBIjqiw dailyFebruary 2019 1:00amFebruary 2023 12:05pmLisinopril 10 mg qymornQdhksw00PWLJGwpujUkurnwow 2019 1:00am Complies with drug therapyInsulin Aspart U-100 (Novolog Flexpen U-100 Insulin) 100 unit/mL (3 mL) Insulin IvsMcafnojurzqa7NGYDGIZONOSe DirectedFebruary 2019 1:00amJune 2023 2:20pmper sliding scaleInsulin Glargine 100 unit/mL (3 mL) insulin bksFiwhhqthicpe06UWVVJCRPUVYnuhr morningFebruary 2019 1:00amFebruary 2023 12:05pmPantoprazole 40 mg tablet,delayed release (DR/EC)Ubjmzs07OZPAVxckwUkehn 2023 12:00amFreeTextSi tablet Orally Once a day; Note: Source Status: Taking; Refills: 4; Qty: 30 Tablet; Provider: Dora Ross with drug therapyHydrochlorothiazide 12.5 mg tablet Gesuzu83.5MGPODailyMarch 2023 12:00amFreeTextSi tablet in the morning Orally Once a day; Note: Source Status: Taking; Provider: Dora German ( )Complies with drug therapyCholecalciferol (Vitamin D3) 125 mcg (5,000 unit) jmbkyhhFyvbwl008QYLWGOialyFqnkn 2023 12:00amComplies with drug therapyLatanoprost 0.005 % juiznHiuydi1LJBKGSZI-HAEOBqfdxHitvx 2023 12:00amFreeTextSi drop into affected eye in the evening Ophthalmic Once a day; Note: Source Status: Taking; Provider: Dora German ( ) Complies with drug therapyDoxycycline Monohydrate 100 mg clocwalEwlscx848WYEO Twice dailyAugus2024 12:00amComplies with drug therapyAmoxicillin-Pot Clavulanate 875-125 mg lgzrlbIpkqayulorhm4XBWYUMvyvkQkatbm 18th, 2025 12:00am September 12, 2025 10:44amInsulin Nph Isoph U-100 Human (Novolin N Nph U-100 Insulin) 100 unit/mL fihebmbbvtFxlydr18VGIWNRUSUHNbftm morningAu2024 12:00amComplies with drug therapyInsulin Nph Isoph U-100 Human (Novolin N Nph U- 100 Insulin) 100 unit/mL eatqtjfvnbEjzlpt82MLJGFCLTZUHaycecdHrqirl 18th, 2025 12:00amComplies with drug therapyCelecoxib 100 mg innnwggPdexlg685LMGNQuiby July 09, 2025 12:00amComplies with drug therapyFamotidine 20 mg tabletActive 20MGPODailyJune 2023 12:00amFreeTextSi tablet Orally Once a day; Note: Source Status: Taking; Provider: Dora German ( )Complies with drug therapyClopidogrel 75 mg lzccpmGanycp08XKQWTgntc32088Ynzxqr 7th, 2025 12:00amComplies with drug therapyAspirin 81 mg bypoiaLetxlv61GZXGInlba96140 June 28, 2025 12:00amComplies with drug therapyAtorvastatin 80 mg tablet Qdtnsi63QHXDOfcpppw 2024 12:00amComplies with drug therapy Procedures Procedure Date Performed Status IR Angiogram [...] 9:06am 26 mg/dL Above high normal 7-25 [facility] [id number] [address] [facility] [address]RyrklzgflpRqqqsh 2024 8:36amAugust 2024 9:06am1.42 mg/dLAbove high normal0.70-1.30[facility] [id number] [address] [facility] [address]Ehlnzjljs GFR (CKD-EPI)July 09, 2025 8:36amAugu2024 9:06am57.276 mL/MinWilson [facility]tr [id number] [address] [place] [id number] Creatinine Clearance (ChemAugust 2024 8:36am July 09, 2025 9:06am72.67[facility] [id number] [address] [facility] [address]Ahmtnny CreatinineOctober 2024 8:30amOctober 2024 8:35am1.3 mg/dL0.6-1.3ER/ESD physician is notified/shown all ISTAT results.Critical values may be confirmed by laboratorytesting ifdeemed necessary by ER attending doctor.[facility] [id number] [address] [facility] [address]Qqtwsvb Estimated GFR (eGFR)August 22, 2025 8:30amOctober 2024 8:35am> 60.0[facility] [id number] [address] [facility] [address] Diagnostic Imaging Reports Author Ghulam Quintanilla [facility] HospitalAuthoredAugust 2024 1:41pmReportDictated Date/TimeDictated ByStatusRadiology ReportAugust 2024 1:41pmEd [place] [id number] Ultrasound Report Signed Patient: Rashel Rodriguez MR#: [id number] : 1965 Acct:[id number] Age/Sex: 59 / M ADM Date: 5 Loc: [facility] Room: Type: [facility] CLI Attending Dr: Ghulam Quintanilla MD Ordering Provider: Cathy Ramirez APRN Date of Service: 06/28/25 US/US UNI ankle/arm indices: I73.9 - Peripheral vascular disease, unspecified Copies to: GRANT Arriaza MD~ LOWER EXTREMITY SEGMENTAL ARTERIAL DOPSCAN (PVR) INDICATION: [...] THE RIGHT LOWER EXTREMITY. Impression dictated by: Ghulam Quintanilla MD,FACS,FSVS 07/04/2025 1:41 PM Dictation Location: [place] [address] Tech: Soraida Reagan Transcribed By: [facility] 07/04/25 1341 Dictated By: Ghulam Quintanilla MD 07/04/25 1341 Signed By: <Electronically signed by Ghulam Quintanilla MD in OV> 07/04/25 1341 Author Blair Kidd [facility] HospitalAuthoredOctober 2024 5:04pmReportDictated Date/TimeDictated ByStatusRadiology ReportOctober 2024 5:04pmBlair Kidd [address] [facility] [place] [address] CT Scan Report Signed Patient: Rashel Rodriguez MR#: [id number] : 1965 Acct:[id number] Age/Sex: 59 / M ADM Date: 5 Loc: CT Room: Type: [facility] CLI Attending Dr: Cathy العراقي [employer]-C Copies to: Cathy العراقي APRN~ Ordering Provider: Cathy العراقي APRN Date of Service: 08/22/25 CT/CT angio head: I65.23 - Occlusion and stenosis of bilateral carotid ney... ([id number]) CT/CT angio neck: I65.23 - Occlusion and [...] normal anterior and middle cerebral arteries. Anterior co mmunicating artery is patent. Posterior communicating arteries are [...] Kidd M.D. 08/22/2025 5:14 PM Dictation Location: [place] [address] Transcribed By: AMBER 08/22/251713 Dictated By: Blair Kidd II, MD 08/22/251703 Signed By: <Electronically signed by Blair Kidd II, MD in OV> 08/22/251713 Vital Signs Vital Reading Result Reference Range Collection Date/Time Height 70 [in_i] June 28, 2025 10:73ljHyztsd804.10 kgAugust 2024 10:48amBody Temperature 98.2 [degF]97.6-99.0August 2024 10:48amHeart Rate68 /vkj99-788Kmgftg 2024 10:48amRespiratory rate16 /iyo14-95Qijvnd 2024 10:48amOxygen saturation by Pulse sjlewljk23 %95-100Augus2024 10:48amBP Pvyhtlmt377 mm[Hg]100-140August 2024 10:48amBP Xwxxmpxdp01 mm[Hg]60-100August 2024 10:48amBMI (Body Mass Index)38.2 kg/y4Lwkpiu2024 10:37czSkraut98 [in_i] July 09, 2025 8:62qlXtnzrg007.02 kgAugust 2024 8:31amHeart Rate78 /min 60-100gus2024 12:22pmRespiratory rate16 /fsd28-68Jyvman 2024 12:22pmOxygen saturation by Pulse nedfqkvj53 %95-100Augus2024 12:22pmBP Aicdmfyk329 mm[Hg]100-140Augus2024 12:22pmBP Nfkqadndl71 mm[Hg]60-100 July 09, 2025 12:22pmInhaled oxygen flow rate2 L/minAugust 2024 10:40amBody Dugliaacsho69.2 [degF]97.6-99.0October 2024 10:45amHeart Rate 88 /jfh12-699Kydivoq 2024 10:45amRespiratory rate16 /dsz26-46Qfecphb 2024 10:45amOxygen saturation by Pulse ujgletot58 %95-100October 2024 10:45amBP Lrnksryx774 mm[Hg]100-140October 2024 10:45amBP Bpunvrivi51 mm[Hg]60-100October 2024 10:45am Advance Directives Advance Directive Response Recorded Date/ Time Advance Directives Yes December 8:10am Insurance Providers Guarantor Roger Ozuna Address [address] [facility] [phone] Info.Home Phone: Payer Group Member ID Coverage Type Subscriber Relationship to Subscriber Effective Date Expiration Date Medicare Id: [id number] Roger Rodriguez Id: [id number] [address] [facility] [address] Home Phone: Email: [email or web address] Encounters Encounter Location(s) Arrival/Admit Date Discharge/Departure Date Discharge/Departure Disposition Provider(s) Departed Physician/ Provider Office Visit [facility] June 28, 2025 9:55am June 28, 2025 11:53am Discharged to home care or self care (routine discharge) Cathy العراقي APRN Departed Clinical -Ultrasound [facility] June 28, 2025 11:23am June 28, 2025 11:24am Discharged to home care or self care (routine discharge) Ghulam Quintanilla MD Departed [facility] July 09, 2025 8:15am July 09, 2025 2:29pm Discharged to home care or self care (routine discharge) Ghulam Quintanilla MD Non-patient / Non-visit -[facility] July 16, 2025 12:00am Ghulam Quintanilla MDDeparted Clinical-[facility] 8:16amOctober 2024 8:17amDischarged to home care or self care (routine discharge)Cathy العراقي APRNDeparted Physician/Provider Office Visit- [facility] SurgOctober 2024 10:38amOctober 2024 11:01amDischarged to home care or self care (routine discharge)Ghulam Quintanilla MD Recent Diagnosis Onset Date Admit Date Diabetic ulcer of right foot Unknown Jun 9:55am Occlusion and stenosis of bi lateral carotid arteries Unknown June 28, 2025 9:55am PAD (peripheral artery disease) Unknown June 28, 2025 9:55am Assessments Diagnosis Onset Date Resolution Status Admit Date Diabetic ulcer of right foot acuteAugust 2024 9:55amOcclusion and stenosis of bilateral carotid arteries acuteAugust 2024 9:55amPAD (peripheral artery disease)acuteAugust 2024 9:55am Plan of Treatment Author Cathy العراقي [facility] HospitalAuthoredMary [facility] Healthcaret 2024 1:52pmNoninvasive arterial studies from outside facility show moderate [...] Future Visits Future appointment information is unavailable Future Procedures Procedure Name Ordered Date Scheduled Date Discharge Order July 09, 2025 12:50pm July 09, 2025 12:50pm Discharge Order July 09, 2025 12:51pm July 09, 2025 12:51pm Future Medications Future medication information is unavailable Patient Instructions Instruction Admit Date Wound Care for Arterial [place] hernan FRANCISCO) [facility] 8:15am
--- OUTSIDE RECORDS SUMMARY | 2025-09-19 10:28 | XMS_ITS | Clinical Summary ---
Author Organization [facility] Healthcare Address [address] [place] [address] Care Team Providers Care Casino Cage Manager Name Role Phone Unallocated, Noms Provider Primary Care Provi dora Allergies Active AllergyReactionsCriticalityNoted DateCommentsBee VenomSwellingMedium 11/05/2020 Local swelling Medications MedicationSigDispense QuantityRefillsLast FilledStart DateEnd DateStatus acetaminophen (Tylenol) 500 MG tablet Take 1,000 mg by mouth every 6 (six) hours if neededActive gabapentin (Neurontin) 100 MG capsule Take 100 mg by mouth in the morning.Active OneTouch Verio test strip 1 each by Other route in the morning and 1 each at noon and 1 each in the evening and 1 each beforebedtime.03/30/2023ctive insulin aspart (NovoLOG FLEXPEN) 100 UNIT/ML pen (If FSB 150-200; take 4 units,; 201-250, 6 UNITS,; 251-300, 8 UNITS; 301-350, 10 UNITS; 350-401, 12UNITS; Max: 40 units/day)Active ketorolac (Acular) 0.5 % ophthalmic solution Administer 1 drop into both eyes in the morning and 1 drop at noon and 1 drop in the evening and 1 drop before bedtime.Active dorzolamide (Trusopt) 2 % ophthalmic solution Administer 1 drop into affected eye(s) in the morning and 1 drop in the evening. Active Netarsudil-Latanoprost (ROCKLATAN OP) Administer 1 drop into affected eye(s) at bedtimeActive amitriptyline (Elavil) 25 MG tablet Indications:Type 2 diabetes mellitus with diabetic neuropathy, with long-term current use of insulin (HCC)Take 1 tablet (25 mg) by mouth at bedtime 30 tablet 202/15/2024Active hydroCHLOROthiazide (HYDRODiuril) 12.5 MG tablet Indications:Primary hypertensionTake 1 tablet (12.5 mg) by mouth in the morning. 30 tablet ctive metFORMIN (Glucophage) 1000 MG tablet Indications:Uncontrolled type 2 diabetes mellitus with hyperglycemia, with long- term current use of insulin (HCC)Take 1 tablet (1,000 mg) by mouth in the morning and 1 tablet (1,000 mg) in the evening. Take with meals. 60 tablet ctive famotidine (Pepcid) 40 MG tablet Indications:Gastroesophageal reflux disease, unspecified whether esophagitis presentTake 1 tablet (40 mg) by mouth at bedtime 30 tablet ctive pantoprazole (ProtoNix) 40 MG EC tablet Indications:Gastroesophageal reflux disease, unspecified whether esophagitis presentTake 1 tablet (40 mg) by mouth in the morning. Take before meals. 30 tablet ctive latanoprost (Xalatan) 0.005 % ophthalmic solution INSTILL 1 DROP INTO LEFT EYE IN THE EVENING NANQQBNZ71/12/2024ctive moxifloxacin (Vigamox) 0.5 % ophthalmic solution 03/01/2024ctive cholecalciferol (Vitamin D-3) 25 MCG (1000 UT) capsule Take 1,000 Units by mouth DailyActive atorvastatin (Lipitor) 40 MG tablet Indications:Uncontrolled type 2 diabetes mellitus with hyperglycemia, with long- term current use of insulin (HCC)Take 1 tablet (40 mg) by mouth in the evening 100 tablet 03/07/2024ctive DULoxetine (Cymbalta) [address] capsule Indications:Type 2 diabetes mellitus with diabetic neuropathy, with long-term current use of insulin (HCC)Take 1 capsule (30 mg) by mouth Daily Take 1 capsule (30 mg) by mouth in the morning. 30 capsule ctive lisinopril 10 MG tablet Indications:Primary hypertensionTake 1 tablet (10 mg) by mouth in the morning. 90 tablet ctive Active Problems ProblemNoted DateDiagnosed DatePAD (peripheral artery disease)01/06/2024 Nontraumatic amputation of foot, left01/06/2024etrolisthesis of vertebrae 01/06/2024iabetic foot ulcer01/06/2024Uncontrolled type 2 diabetes mellitus with hyperglycemia, with long-term current use of evbfctb6301/06/2024 Assessment & Plan (03/13/2024 9:09 AM EDT): Check blood sugars daily, notify if <70 or >200. Take medications (pills or insulin) as directed. Monitor for s/s of hypoglycemia (sweaty, dizziness, nausea, vomiting, or shakiness). Watch for increase in thirst, urination, or appetite. Inspect feet frequently monitoring for open wounds , andalso recommend yearly eye exam. Pt should attempt [...] that we could order from [facility] in [place] as they can bill DME, he then [...] why he cannot do this or that. Bj Quiñones Tyrell in 10/2023, she felt that he was too complex for her to treat, was referred to Dr Wallis, and to date no appt. He has had labs that were due ordered in 10/2023, still 4 months later not done. I am going to discharge this patient for non compliance in medical treatment and a letter w ill be sent to this patient. Assessment & Plan (01/06/2024 9:07 PM EST): Check blood sugars daily, notify if <70 or >200. Take medications (pills or insulin) as directed. Monitor for s/s of hypoglycemia (sweaty, dizziness, nausea, vomiting, or shakiness). Watch for increase in thirst, urination, or appetite. Inspect feet frequently monitoring for open wounds , andalso recommend yearly eye exam. Pt should attempt [...] done as well!! Family history of heart rwaxnhd7401/06/2024Elevated alkaline phosphatase level 01/06/2024nxiety, lydmdlxksje69/15/2024Encounter for subsequent annual wellness visit (AWV) in Medicare ancigge5501/06/2024 Assessment & Plan (01/06/2024 4:55 PM EST): Reviewed Ht/Wt/BMI Recommend eye exam yearly Recommend dental exams twice a year Balance work/leisure activities Exercises is recommended most days of the week (appropriate as chronic conditions allow) Follow up yearly and prn Colon cancer sveaujdiz86/12/2023Obesity (BMI 30-39.9)11/02/2023Vitamin D xciuxwdrpn06/12/2023 Assessment & Plan (11/02/2023 3:09 PM EST): Check labs Type 2 diabetes mellitus with diabetic neuropathy, hpznyizprpv49/06/2023 Assessment & Plan (03/13/2024 9:01 AM EDT): Continue with duloxetine as well as elavil Has established nurse practitioner home assessments Assessment & Plan (11/02/2023 3:11 PM EST): Has upcoming appt with diabetic specialist Check labs Fu in 8 weeks Jgsvmvwygyjdujt94/06/5716Oirzdcpuotfh41/06/5220Duochzgrhjut22/06/2023 Assessment & Plan (03/13/2024 9:02 AM EDT): At goal, no changes to kam Check labs Assessment & Plan (01/06/2024 9:03 PM EST): At goal, labs need completed from 11/13 Gastroesophageal reflux eniajzy1110/27/2023 Overview (02/03/2024): EGD 02/03/24 Assessment & Plan (03/13/2024 9:02 AM EDT): Continue with GI for management of this Assessment & Plan (01/06/2024 9:04 PM EST): Check labs, stable on current meds Assessment & Plan (11/02/2023 3:09 PM EST): No changes in meds Abnormal gait10/27/2023Nausea and esaxcfhw24/24/2023hronic mmppzeqa54/24/2023 Ulcer of right foot with fat layer geekvns5808/07/2021 Overview (10/27/2023): Added automatically from request for surgery [id number] Rwrdmftsexgfkb85/30/2021 Assessment & Plan (11/02/2023 3:09 PM EST): Cont statin Check labs Jvnojscpfc33/05/2014 Resolved Problems ProblemNoted DateDiagnosed DateResolved DateOpen wound of toe10/27/2023 01/06/2024harcot's joint of foot, left Overview (10/27/2023): Added automatically from request for surgery [id number] Wound, open, foot with complication, left, initial roczhdcix91 Gitonl01hronic osteomyelitis of left foot with draining sinus iabetic ulcer of left midfoot associated with type 2 diabetes mellitus, with necrosis of boneOpen wound of foot excluding toes1/60019101/06/2024losed multiple fractures of hand bones Immunizations ImmunizationAdministration DatesNext PatRaiv9601/04/2023 Family History Medical HistoryRelationNameCommentsHeart diseaseFatherHyperlipidemiaFather HypertensionFatherDiabetesMotherHyperlipidemiaMotherHypertensionMotherKidney diseaseMotherDiabetesSiblingsisterRelationNameStatusCommentsFatherOtherMother OtherSiblingAlive Social History Tobacco UseTypesPacks/DayYears UsedDateSmoking Tobacco: NeverSmokeless Tobacco: Never Tobacco Cessation:Counseling Given: Not Answered Alcohol UseStandard Drinks/WeekCommentsNot Currently0 (1 standard drink = 0.6 oz pure alcohol)pop-4 cups dailyHumiliation, Afraid, Rape, and Kick questionnaire AnswerDate RecordedWithin the last year, have you been afraid of your partner or ex-partner?No01/06/2024Within the last year, have you been humiliated or emotionally abused in other ways by your partner or ex-partner?No01/06/2024 Within the last year, have you been kicked, hit, slapped, or otherwise physically hurt by your partner or ex-partner?No01/06/2024Within the last year, have you been raped or forced to have any kind of sexual activity by your part ner or ex-partner?No01/06/2024Social Connection and Isolation PanelAnswerDate RecordedIn a typical week, how many times do you talk on the phone with family, friends, or neighbors?Never01/06/2024How often do you get together with friends or relatives?Never01/06/2024How often do you attend shinto or bahai services?Never4Do you belong to any clubs or organizations such as shinto groups, unions, fraternal or athletic groups, or school groups?Yes 01/06/2024How often do you attend meetings of the clubs or organizations you belong to?Never01/06/2024re you , , , , never , or living with a partner?Cfxgweqo73/15/2024UDIT-CAnswerDate Recorded Q1: How often do you have a drink containing alcohol?Monthly or less01/06/2024 Q2: How many drinks containing alcohol do you have on a typical day when you are drinking?Patient does not drink01/06/2024Q3: How often do you have six or more drinks on one occasion?Never01/06/2024Overall Financial Resource Strain (CARDIA) AnswerDate RecordedHow hard is it for you to pay for the very basics like food, housing, medical care, and heating?Not hard at all01/06/2024HQ-2AnswerDate RecordedPatient Health Questionnaire-2 Jaugj042Finjordan [facility] [place] [facility] - Occupational Stress QuestionnaireAnswerDate RecordedDo you feel stress - tense, restless, nervous, or anxious, or unable to sleep at night because yourmind is troubled all the time - these days?Very much01/06/2024 Exercise Vital SignAnswerDate RecordedOn average, how many days per week do you engage in moderate to strenuous exercise (like a brisk walk)?0 days01/06/2024On average, how many minutes do you engage in exercise at this level?0 min 01/06/2024Hunger Vital SignAnswerDate RecordedWithin the past 12 months, you worried that your food would run out before you got the money to buymore.Often true01/06/2024Within the past 12 months, the food you bought just didn't last and you didn't have money to get more.Often true01/06/2024RAPARE - TransportationAnswerDate RecordedIn the past 12 months, has lack of transportation kept you from medical appointments or from getting medications? Yes01/06/2024In the past 12 months, has lack of transportation kept you from meetings, work, or from getting things needed for daily living?Yes01/06/2024 Housing Stability Vital SignAnswerDate RecordedIn the last 12 months, was there a time when you were not able to pay the mortgage or rent on time?No01/06/2024In the last 12 months, how many places have you lived?In the last 12 months, was there a time when you did not have a steady place to sleep or slept in [place] (including now)?No01/06/2024Sex and Gender InformationValueDate RecordedSex Assigned at BirthNot on fileLegal XlsTgvj6902/03/2023 7:39 PM EDT Gender IdentityNot on fileSexual OrientationNot on file Last Filed Vital Signs Vital SignReadingTime TakenCommentsBlood Vynltxzt831/78003/13/2024 8:25 AM EDT Vvbij49602/22/2024 8:25 AM XAUHrzvvsmxpzn64.4 ??C (97.5 ??F)03/13/2024 8:25 AM EDTRespiratory Wrxc069203/13/2024 8:25 AM EDTOxygen Konekygpqq17%03/13/2024 8:25 AM EDTInhaled Oxygen Concentration--Bqfwtc938 kg (256 lb 12.8 oz)03/13/2024 8:25 AM RHTXbrwhh285.1 cm (5' 10.5 )03/13/2024 8:25 AM EDTBody Mass Index36.33 03/13/2024 8:25 AM EDT Plan of Treatment Health MaintenanceDue DateLast DoneCommentsCT Hgcmyicomrrc1966Colonoscopy 1966Colorectal Cancer Gqpqlmxei1966FIT-DNA1966FIT1966 FOBT1966 3662Ldjukjayvsuov1966Diabetes: Retinopathy Noioqoqaf56/19/2024 11/09/2023, 02/16/2023Medicare Annual Wellness (AWV)5001/06/2024, 01/06/2024iabetes: Urine Protein Hjgckwtnl74/08/2024, 05/01/2024, 05/01/2024, Additional history existsInfluenza Vaccine (#1)07/23/2025Diabetes: Hemoglobin A1C/09/2025, 04/10/2025, 05/01/2024, Additional history exists Procedures Procedure NamePriorityDate/TimeAssociated DiagnosisCommentsMICROALBUMIN / CREATININE URINE OOJBBApppqha63/10/2024 11:29 AM EDT HEMOGLOBIN H5FKrawcwp53/10/2024 11:29 AM EDT from Last 3 Months or Most Recently Relevant to Health Maintenance Results * Microalbumin / creatinine urine ratio (05/01/2024 11:29 AM EDT)ComponentValue Ref RangeTest MethodAnalysis TimePerformed AtPathologist Signature MICROALBUMIN, URINE1.80.0 - 1.9 mg/dLPROMEDICAURINE KNKMG995.90mg/dLPROMEDICA ALB/CREAT RATIO9.70.0 - 30.0 mg/g creatPROMEDICAComment:PERFORMED AT [address], [place] [address]Wdhcfafa (Source) Anatomical Location / LateralityCollection Method / VolumeCollection Time Received Time05/01/2024 11:29 AM EDT05/01/2024 11:30 AM EDT Narrative Authorizing ProviderResult TypeResult StatusLisa Aichholz NPLAB URINE ORDERABLES Final ResultPerforming OrganizationAddressCity/State/ZIP CodePhone Number [place] * (ABNORMAL) Hemoglobin A1c (05/01/2024 11:29 AM EDT)ComponentValueRef RangeTest MethodAnalysis TimePerformed AtPathologist SignatureHEMOGLOBIN A1C11.3(H)4.4 - 5.6 %PROMEDICAComment: NOTE ? ADA Guidelines ? Result ?HgbA1c ?Normal : ? less than 5.7 % ?Prediabetes : ?5.7 % ??to 6.4 % Diabetes : > 6.4 % Use with caution in patients with abnormal hemoglobin variants as the half-life of red blood cells and in vivo glycation rates are affected. AVERAGE NSFHOED723bb/dLPROMEDICAComment:PERFORMED AT [place] [address],[place], [place] [address]Vsemidsm (Source)Anatomical Location / LateralityCollection Method / VolumeCollection TimeReceived Time05/01/2024 11:29 AM EDT05/01/2024 11:30 AM EDT Narrative Authorizing ProviderResult TypeResult StatusLisa Aichholz NPLAB BLOOD ORDERABLES Final ResultPerforming OrganizationAddressCity/State/ZIP CodePhone Number [place] from Last 3 Months or Most Recently Relevant to Health Maintenance Insurance Care Teams Team MemberRelationshipSpecialtyStart DateEnd Date Unallocated, Noms Provider, [address] [place] [address] PCP - GeneralFamily Medicine05/30/25
--- OUTSIDE RECORDS SUMMARY | 2025-09-19 10:28 | XMS_ITS | Clinical Summary ---
Author Organization [facility] Address [facility]ly [facility] [place] [address] Care Team Providers Care Mental Health Program Director Name Role Phone Marilee Staples CNP Primary Care Provider Allergies No known active allergies Medications MedicationSigDispense QuantityRefillsLast FilledStart DateEnd DateStatus metFORMIN (GLUCOPHAGE) 1000 MG tablet Take 1,000 mg by mouth 2 (two) times a day with meals .Active insulin glargine (LANTUS) 100 unit/mL injection Inject 25 (twenty five) Units under the skin nightly . 7.5 mL 11/20/2020Active insulin lispro (HumaLOG) 100 unit/mL injection Inject 5 (five) Units under the skin 3 (three) times a day before meals . 4.5 mL 11/20/2020Active insulin lispro (HumaLOG) 100 unit/mL injection Sliding scale before meals: BG 150-200 = +1 unit Humalog, 201-250=+2 Units Humalog, 251-300=+3 Units Humalog, 301-350= +4 Humalog, >351 =+5 units Humalog . 10 mL 11/20/2020Active Additional Information Patient not taking.Reported on 02/06/2021 atorvastatin (LIPITOR) 40 MG tablet Take 1 tablet by mouth daily .01/18/2020Active Active Problems ProblemNoted DateDiagnosed DateType 2 diabetes mellitus with retinopathy of both eyes, with long-term current use of rgczlku6611/06/2020Secondary DM with DKA 11/05/2020 Family History Medical HistoryRelationCommentsDiabetesBrotherDiabetesFatherHeart diseaseFather DiabetesMotherRelationStatusCommentsBrotherFatherMother Social History Tobacco UseTypesPacks/DayYears UsedDateSmoking Tobacco: NeverSmokeless Tobacco: NeverAlcohol UseStandard Drinks/WeekCommentsYes0 (1 standard drink = 0.6 oz pure alcohol)rarelySex and Gender InformationValueDate RecordedSex Assigned at Not on fileLegal VbrCzpw28/15/2020 1:33 PM ESTGender IdentityNot on fileSexual OrientationNot on file Last Filed Vital Signs Vital SignReadingTime TakenCommentsBlood Rhpodohv493/6003 1:44 PM EDT Pbtuo42691 1:44 PM BQBIvnasastwbc81.6 ??C (97.9 ??F)02/06/2021 1:44 PM EDTRespiratory Zwaz604902/06/2021 1:44 PM EDTOxygen Nmasvorbdr51%02/06/2021 1:44 PM EDTInhaled Oxygen Concentration--Lxgfwz762 kg (231 lb 7.7 oz)11/18/2020 11:38 AM YYEYlovqq351.8 cm (5' 10 )11/18/2020 11:38 AM ESTBody Mass Index33.21 11/18/2020 11:38 AM EST Plan of Treatment Health MaintenanceDue DateLast DoneCommentsCT Tufaqpibabam1966Colonoscopy 1966Colorectal Cancer Screening/Wskdiicbuz1966Fecal DNA1966 Fecal occult blood test (FOBT,FIT)1966PSA Level1966Tetanus: Every 10yrs (RETIRED)1966Wellness Visit1969Depression Screening/Follow-Up (PHQ-2/9)1978HIV Rsggqcgij99/20/1981Hepatitis C Fffgoyjbv72/20/1984 Pneumococcal Vaccine: 50+ Years (1 of 1 - PCV)2016Zoster Vaccines (1 of 2) 2016COVID-19 Vaccine (1 - 2023- season)2025Influenza Vaccine (#1) 2025 Insurance Advance Directives For more information, please contact: [phone] * Full Code - Unverified (Latest Code Status on File) Date ActivatedDate XdshvzvrzekMpxyitdn19/15/2020 7:21 PM11/21/2020 10:03 PM Care Teams Team MemberRelationshipSpecialtyStart DateEnd Date Marilee Staples, DIGITAL ASSOCIATE [address] [place] [id number] PCP - GeneralNurse Rfvtosscmsin23/15/20
--- OUTSIDE RECORDS SUMMARY | 2025-09-19 10:28 | XMS_ITS | Clinical Summary ---
Author Organization Swipe.to tem Address [id number] [address] [place] [address] Care Team Providers Care Jewelry Enameler Name Role Phone Brendalauren Jessee Duran DO Primary Care Provider [phone] Allergies Active AllergyReactionsCriticalityNoted DateCommentsBee Venom Protein (Honey Bee)Other (See Comments)Gcgvqw0711/05/2020 Local swelling Medications MedicationSigDispense QuantityRefillsLast FilledStart DateEnd DateStatus dorzolamide (TRUSOPT) 2 % ophthalmic solution Indications:ocular hypertensionAdminister 1 drop to the right eye in the morning and 1 drop before bedtime. Indications: increasedpressure in the eye.Active cholecalciferol, vitamin D3, 2,000 units capsule Take 1 capsule (2,000 Units total) by mouth in the morning.Active latanoprost (XALATAN) 0.005 % ophthalmic solution Administer 1 drop into the left eye once daily at bedtime. INSTILL 1 DROP INTO LEFT EYE AT PVKVTLQ85/07/2025Active BD VERO 2ND GEN PEN NEEDLE 32 gauge x 5/32 needle 1 Pen Needle by other route 3 (three) times a day.5Active blood-glucose meter kit Indications:Type 2 diabetes mellitus with foot ulcer, with long-term current use of insulin ([facility])Use as instructed 1 each 5Active doxycycline (MONODOX) 100 mg capsule TAKE 1 CAPSULE BY MOUTH TWICE DAILY FOR 14 DAYS5Active clopidogreL (PLAVIX) 75 mg tablet Take 1 tablet (75 mg total) by mouth.5Active collagenase (SantyL) ointment Indications:Ulcer of right foot with fat layer exposed ([facility])Apply 1 Application topically in the morning. 30 g 5Active famotidine (PEPCID) 40 mg tablet Indications:Gastroesophageal reflux disease, unspecified whether esophagitis presentTake 1 tablet (40 mg total) by mouth in the morning and 1 tablet (40 mg total) before bedtime. 60 tablet 5Active blood sugar diagnostic (ACCU-CHEK GUIDE TEST STRIPS) strip Indications:Type 2 diabetes mellitus with foot ulcer, with long-term current use of insulin ([facility])1 strip by other route 3 (three) times a day. 100 strip 5Active pantoprazole (PROTONIX) 40 mg EC tablet Indications:Gastroesophageal reflux disease, unspecified whether esophagitis presentTake 1 tablet (40 mg total) by mouth in the morning. 90 tablet 5Active hydroCHLOROthiazide (HYDRODIURIL) 12.5 mg tablet Indications:Benign essential HTNTake 1 tablet (12.5 mg total) by mouth daily. 90 tablet 5Active celecoxib (CeleBREX) 100 mg capsule Indications:Chronic midline low back pain without sciaticaTake 1 capsule (100 mg total) by mouth in the morning. 30 capsule 5Active atorvastatin (LIPITOR) 80 mg tablet Indications:hyperlipidemiaTake 1 tablet (80 mg total) by mouth daily with breakfast for 360 days Indications: excessive fat in the blood. 90 tablet 6Active niacin (NIASPAN) 500 mg CR tablet Indications:Mixed hyperlipidemia due to type 2 diabetes mellitus ([facility])Take 1 tablet (500 mg total) by mouth nightly. 90 tablet 5Active lisinopriL (PRINIVIL,ZESTRIL) 10 mg tablet Indications:Benign essential HTN,Type 2 diabetes mellitus with foot ulcer, with long-term current use of insulin ([facility])Take 1 tablet (10 mg total) by mouth in the morning for 360 days. 90 tablet 6Active semaglutide (OZEMPIC) 0.25 mg or 0.5 mg (2 mg/3 mL) pen injector Indications:Type 2 diabetes mellitus with other circulatory complication, with long-term current use of insulin([facility])Inject 0.5 mg under the skin every 7 days. 2 mL 5Active insulin NPH (HumuLIN N,NovoLIN N) 100 unit/mL injection Indications:Type 2 diabetes mellitus with foot ulcer, with long-term current use of insulin ([facility])38 units in the morning and 40 units at nighttime 10 mL 5Active amoxicillin-pot clavulanate (AUGMENTIN) 875-125 mg per tablet Indications:Ulcer of right foot with fat layer exposed ([facility]),Type 2 diabetes mellitus with other circulatory complication, with long-term current use of insulin([facility])Take 1 tablet by mouth in the morning and 1 tablet before bedtime. Do all this for 14 days. 28 tablet /01/2025Expired amoxicillin-pot clavulanate (AUGMENTIN) 875-125 mg per tablet Indications:Ulcer of right foot with fat layer exposed ([facility])Take 1 tablet by mouth in the morning and 1 tablet before bedtime. Do all this for 14 days. 28 tablet Expired Active Problems ProblemNoted DateDiagnosed DatePeripheral artery ddfrfrp3707/06/2025 Assessment & Plan (07/06/2025 2:46 PM EDT): Patient with moderate to severe peripheral artery disease based on studies from hospitalization earlier in June. Patient scheduled to have vascular procedure on 07/09. Improvement in vascular function will help with diabetic foot ulcer heal Chronic midline low back pain without /06/2025 Assessment & Plan (05/10/2025 12:57 PM EDT): Reviewed 6 view lumbar x-rays from May 02, 2025. Prescribed celecoxib 100 mg 1 tablet daily. Assessment & Plan (04/27/2025 9:18 PM EDT): Ordered x-rays of lumbar spine 6 views including flexion and extension views. Benign essential HTN04/27/2025 Assessment & Plan (05/10/2025 12:59 PM EDT): Hypertension is stable. Continue with hydrochlorothiazide 12.5 mg daily and lisinopril 10 mg daily. Assessment & Plan (04/27/2025 9:14 PM EDT): Blood pressure today in normal range. Patient denies any symptoms. Continue with hydrochlorothiazide 12.5 mg daily, lisinopril 10 mg daily. Fatty liver disease, xzqcntiscaxs11/06/2025 Assessment & Plan (04/27/2025 9:13 PM EDT): Ordered lab work including comprehensive metabolic panel to evaluate for level of transaminase elevation Type 2 diabetes mellitus with pressure igkkwm1404/11/2025Unstable ankle, right 04/11/2025History of transmetatarsal amputation of right foot03/28/2025Ulcer of right foot with fat layer wxkoxzz9408/07/2021 Overview (08/07/2021): Added automatically from request for surgery [id number] Osteomyelitis of left foot1Diabetes oyznwkqs40/30/2021 Assessment & Plan (07/06/2025 2:42 PM EDT): Patient diabetes is uncontrolled. Due to financial restrictions, he is unable to afford insulin which he uses to control blood sugar. Patient's last hemoglobin A1c from April 2025 was 11.5%. Discussed with patient the importance of blood sugar control. Since patient having difficulty affording the cost of medications we will refer patient to the [facility] medical management team fordiabetes to aid with patient assistance and management [...] before meals. Monitor blood sugars before meals. Eximwshtsafwrl82/30/2021harcot's joint of foot, left03/19/2021 Overview (03/19/2021): Added automatically from request for surgery [id number] Wound, open, foot with complication, left, initial locepqtbz84/05/2021epsis 02/07/2021iabetic ulcer of right midfoot associated with type 2 diabetes mellitus, with muscle involvement without evidence of vknojzcm66/19/2021hronic osteomyelitis of left foot with draining sinus02/07/2021 Encounters DateTypeDepartmentCare GovnPxhmionmbmo89/09/2025Telephone [facility] - [facility] Medication Management [address] [phone] Brianna Ocasio MA 08/27/2025Telephone [facility] [address] [place] [phone] Jessee Molina DO 08/24/2025Telephone [facility] [address] [place] [phone] Ana Marquez [facility] 08/16/2025Telephone [facility] [address] [place] [phone] Ana Marquez, [facility] 08/13/2025 8:00 AM EDTClinical Support [facility] - Pharmacy Medication Management [address] [place] [address] 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 ([facility]) [E11.628, L84] (Primary Dx)08/10/2025 10:00 AM EDTOffice Visit [facility] [address] [place] [phone] Jessee Molina DO Type 2 diabetes mellitus with other circulatory complication, with long-term current use of insulin([facility]) (Primary Dx); Type 2 diabetes mellitus with foot ulcer, with long-term current use of insulin ([facility]); Benign essential HTN; Mixed hyperlipidemia due to type 2 diabetes mellitus (CMS-HCC); Gastroesophageal reflux disease, unspecified whether esophagitis present; Chronic midline low back pain without sciatica; Ulcer of right foot with fat layer exposed ([facility])08/10/20258460Kmijcs82/26/2025 Patient Assistance [facility] - Pharmacy Medication Management [address] [place] [address] Medication Management, [facility] 07/17/2025Results Follow-Up [facility] [address] [place] [phone] Jessee Molina, Lipid panel07/16/2025 8:00 AM EDTClinical Support [facility] - Pharmacy Medication Management [address] [place] [address] Type 2 diabetes mellitus with other circulatory complication, with long-term current use of insulin([facility]) (Primary Dx)07/16/20255075Acaste75/15/2025[facility]phone [facility] [address] [place] [phone] Ana Marquez CMA 07/05/2025 9:30 AM EDTOffice Visit [facility] [address] [place] [phone] Jessee Molina DO Ulcer of right foot with fat layer exposed ([facility]) (Primary Dx); Type 2 diabetes mellitus with foot ulcer, with long-term current use of insulin ([facility]); Hyperlipidemia, unspecified hyperlipidemia type; Gastroesophageal reflux disease, unspecified whether esophagitis present; Peripheral artery itskflb6207/05/2025Refill [facility] [address] [place] [phone] Jessee Molina DO Type 2 diabetes mellitus with foot ulcer, with long-term current use of insulin ([facility])07/05/2025[facility] [address] [place] [phone] Jessee Molina DO Ulcer of right foot with fat layer exposed ([facility])07/05/2025Telephone [facility] Medication Management [address] [place] [phone] Medication Management, [facility] 07/05/20254373Cfwuwf22/05/2025Orders Only [facility] [address] [place] [address] [place] [address] Ref Prov, Not In System from Last 3 Months Immunizations No known immunizations Family History Medical HistoryRelationNameCommentsCoronary artery diseaseFatherDiabetesFather Hearing lossFatherStrokeFatherCancerMaternal GrandfatherDiabetesMotherDiabetes Sister 1DiabetesSister 2Anesthesia problemsNeg HxBleeding DisorderNeg HxClotting disorderNeg HxColon cancerNeg HxProstate cancerNeg HxRelationNameStatusComments FatherDeceasedMaternal GrandfatherDeceasedMaternal GrandmotherDeceasedMother AlivePaternal GrandfatherDeceasedPaternal GrandmotherDeceasedSister 1AliveSister 2Alive Social History Tobacco UseTypesPacks/DayYears UsedDateSmoking Tobacco: NeverSmokeless Tobacco: NeverAlcohol UseStandard Drinks/WeekCommentsNot Currently0 (1 standard drink = 0.6 oz pure alcohol)quit 2006Social Connection and Isolation PanelAnswerDate RecordedIn a typical week, how many times do you talk on the phone with family, friends, or neighbors?Twice a week02/07/2021How often do you get together with friends or relatives?Never02/07/2021How often do you attend congregational or yarsanism services?Never1Do you belong to any clubs or organizations such as congregational groups, unions, fraternal or athletic groups, or school groups?No 02/07/2021How often do you attend meetings of the clubs or organizations you belong to?Never02/07/2021re you , , , , never , or living with a partner?Uykluspq06/19/2021UDIT-CAnswerDate Recorded Q1: How often do you have a drink containing alcohol?Monthly or less02/07/2021 Average Number of DrinksNot on file02/07/2021Q3: How often do you have six or more drinks on one occasion?Never02/07/2021Overall Financial Resource Strain (CARDIA)AnswerDate RecordedHow hard is it for you to pay for the very basics like food, housing, medical care, and heating?Not very hard02/07/2021HQ-2Answer Date RecordedTotal Qusxd958Finheber [facility] [employer] - Occupational Stress QuestionnaireAnswerDate RecordedDo you feel stress - tense, restless, nervous, or anxious, or unable to sleep at night because yourmind is troubled all the time - these days?To some lcnjnt8202/07/2021xercise Vital Sign AnswerDate RecordedOn average, how many days per week do you engage in moderate to strenuous exercise (like a brisk walk)?0 days02/07/2021On average, how many minutes do you engage in exercise at this level?0 min02/07/2021RAPARE - TransportationAnswerDate RecordedIn the past 12 months, has lack of transportation kept you from medical appointments or from getting medications?No 02/07/2021In the past 12 months, has lack of transportation kept you from meetings, work, or from getting things needed for daily living?No02/07/2021 ChildcareAnswerDate RecordedDo problems getting child care coordinator make it difficult for you to work or study?No02/07/2021mploymentAnswerDate RecordedDo you need help finding a local career center and/or a training program?No02/07/2021Hunger ScreeningAnswerDate RecordedWithin the past 12 months we worried whether our food would run out before we got money to buy more.Sometimes True08/10/2025 Within the past 12 months the food we bought just didn't last and we didn't have money to get more.Sometimes True08/10/2025Purpose - LifeAnswerDate RecordedI have a purpose and direction in my life.Agree02/07/2021ex and Gender InformationValueDate RecordedSex Assigned at BirthNot on fileLegal SexMale 06/27/2015 11:23 AM EDTGender IdentityNot on fileSexual OrientationNot on file Last Filed Vital Signs Vital SignReadingTime TakenCommentsBlood Ppwzyziv043/7209/ 8:17 AM EDT Ktlnf0056 8:17 AM AUCZrwrqmhhkep57.4 ??C (97.6 ??F)08/10/2025 10:17 AM EDTRespiratory Ibbj0035 9:00 AM EDTOxygen Vammdxfinz99%08/10/2025 10:17 AM EDTInhaled Oxygen Concentration--Urxxtk246.9 kg (249 lb)08/13/2025 8:17 AM FYFLdhgpj279 cm (5' 8.5 )04/26/2025 2:12 PM EDTBody Mass Index37.31004/26/2025 2:12 PM EDT Plan of Treatment DateTypeDepartmentCare Team (Latest Contact Info)Hcvfhirjsdc86/31/2025 8:30 AM EDTClinical Support [facility] [address] [place] [phone] Jessee Molina, [address], [address], [address] [place] [phone] Health MaintenanceDue DateLast DoneCommentsDiabetic Ophthalmology Exam1966 Adult BMI Follow Up Plan1984Zoster (Shingles) Vaccine (1 of 2)2016 Diabetic Foot Exam/, 02/07/2021Influenza Zavhbdm5207/23/2025 Depression Qfcvtlphl97Statin Use: Jipgonauxwoojk29/19/2026 08/10/2025Statin Use: Dcbgland50/Tobacco Iqhodmwcu35/19/2026 08/10/2025dult BMI Rhidaipzp66/DTaP,Tdap and Td Vaccines (2 - Td or Tdap) Goals GoalPatient Goal TypeAssociated ProblemsRecent ProgressPatient-Stated?Author <enter goal here> Yulia Leon RN Note: Evaluation of progress towards goal: [facility] group home facility Medical Devices ImplantedTypeAreaManufacturerDevice IdentifierShelf Expiration DateModel / Serial / LotCmnt Bn Bio 40gm Rpl [id number] - [id number] Implanted:Qty: 2 on 02/07/2021 [facility]: FootZimmer [id number] / / [id number] Iol Ultrasert 18.5d - [id number] - [id number] Implanted:Qty: 1 on 12/28/2019 [facility]: [employer]07/22/2022AU00T0 18.5 / [id number] / NAExplantedTypeAreaManufacturerDevice IdentifierShelf Expiration DateModel / Serial / LotPin Fx 9in in Stnm Ft 2 - [id number] Explanted:Qty: 4 on 04/18/2021 at [facility] [id number] / / Description: wilfrid pin from tray (smooth wilfrid pins double ended) Procedures Procedure NamePriorityDate/TimeAssociated DiagnosisCommentsLIPID PROFILERoutine 07/16/2025 9:20 AM EDT Type 2 diabetes mellitus with foot ulcer, with long-term current use of insulin ([facility]) Hyperlipidemia, unspecified hyperlipidemia type from Last 3 Months Results * (ABNORMAL) Lipid panel (07/16/2025 9:20 AM EDT)ComponentValueRef RangeTest MethodAnalysis TimePerformed AtPathologist JyqiuzgwcKFNGBIESAPM757086 - 200 mg/dL07/16/2025 3:26 PM [facility] YLMLVTBRCWMHCCVWQMDFXT028 (H)27 - 150 mg/dL07/16/2025 3:26 PM [facility] LABORATORYHDL DRLAARQEFHU96(L)>39 mg/dL07/16/2025 3:26 PM [facility] LABORATORYComment: HDL <40 mg/dL - High Risk HDL > or = 40mg/dL- Desirable HDL >60 mg/dL - Negative Risk LDL (CALC)128<130 mg/dL07/16/2025 3:26 PM [facility] Comment: LDL <100 mg/dL - Desirable LDL >160 mg/dL - High Risk CHOLESTEROL:HDL5.8(H)1.0 - 5.008 3:26 PM [facility] LABORATORYVERY LOW RGDIMAPHBUU96(H)0 - 30 mg/dL07/16/2025 3:26 PM [facility] LABORATORYSpecimen (Source)Anatomical Location / Laterality Collection Method / VolumeCollection TimeReceived TimeBloodVenous blood / UnknownVenipuncture / Tahtnsn8207/16/2025 9:20 AM EDT07/16/2025 9:20 AM EDT Narrative Authorizing ProviderResult TypeResult StatusMichael Roger Molina DOL BLOOD ORDERABLESFinal ResultPerforming OrganizationAddressCity/State/ZIP CodePhone Number [facility] [address] [place] [address], [place] [phone] from Last 3 Months Insurance * Guarantor: [facility]Account TypeRelation to PatientDate of PhoneBilling AddressCorporateOther [address] [place] [address] Advance Directives * Full Code (Latest Code Status on File) Date ActivatedDate InactivatedComments04/17/2021 12:59 PM04/21/2021 5:08 PM * Full Code Date ActivatedDate InactivatedComments02/07/2021 2:54 AM02/13/2021 1:11 AM Care Teams Team MemberRelationshipSpecialtyStart DateEnd Date Jessee Molina DO [address] [place] [address], [facility], [place] [address] [facility] - [facility]04/26/25
--- OUTSIDE RECORDS SUMMARY | 2025-09-19 10:31 | XMS_ITS | Clinical Summary ---
Author Organization [facility] Address [address], [address] [place] [address] Care Team Providers Care Wash Oil Cooler Operator Name Role Phone Marilee Staples APRN, NP Primary Care Provide r Allergies Active AllergyReactionsCriticalityNoted DateCommentsBee VenomOther (See Comments)Gyvyqd0911/05/2020 Local swelling Medications MedicationSigDispense QuantityRefillsLast FilledStart DateEnd DateStatus piperacillin-tazobactam (ZOSYN) 3-0.375 GM per 50ML IVPB extended infusion Infuse 3,375 mg intravenously every 8 hoursActive Insulin Aspart (NOVOLOG FLEXPEN SC) Inject into the skinActive metFORMIN (GLUCOPHAGE) 1000 MG tablet Take 1,000 mg by mouth 2 times daily (with meals)Active atorvastatin (LIPITOR) 40 MG tablet 04/22/2021ctive dorzolamide (TRUSOPT) 2 % ophthalmic solution Apply 1 drop to eye 2 times dailyActive insulin glargine (LANTUS) 100 UNIT/ML injection vial Inject 32 Units into the skin hxymhna2511/20/2020Active B-D UF III MINI PEN NEEDLES 31G X 5 MM MISC 04/22/2021ctive lisinopril (PRINIVIL;ZESTRIL) 10 MG tablet Take 10 mg by mouth daily (with breakfast)Active Social History Tobacco UseTypesPacks/DayYears UsedDateSmoking Tobacco: NeverSmokeless Tobacco: NeverSex and Gender InformationValueDate RecordedSex Assigned at BirthNot on fileLegal WxuXmqt8206/10/2015 2:59 PM EDTGender IdentityNot on fileSexual OrientationNot on file Last Filed Vital Signs Vital SignReadingTime TakenCommentsBlood Zfxrngkh961/8206 10:44 AM EDT Gbzxy0709/02/2021 10:44 AM SULFgvqmurtxjf38.4 ??C (97.5 ??F)04/23/2021 10:44 AM EDTRespiratory Gqjv819504/23/2021 10:44 AM EDTOxygen Vfhluxqvlf60%04/23/2021 10:44 AM EDTROOM AIR AT RESTInhaled Oxygen Concentration--Dvombd96.3 kg (208 lb) 04/23/2021 10:44 AM LXLWslaei839.8 cm (5' 10 )04/23/2021 10:44 AM EDTBody Mass Index29.8404/23/2021 10:44 AM EDT Plan of Treatment Not on file Insurance Care Teams Team MemberRelationshipSpecialtyStart DateEnd Date Marilee Staples, DATA VISUALIZATION DEVELOPER - SYSTEM SAFETY MANAGER [address] [place] [phone] PCP - GeneralNurse Practitioner03/26/21
--- OUTSIDE RECORDS SUMMARY | 2025-09-19 10:31 | XMS_ITS | Continuity of Care Document ---
Author [facility] Address [address] [place] [address] Problems Unknown Problems Results Test Result Date/Time Value / Unit Interp. Refere nce Range SARS-CoV-2 (COVID-19), RT-PC R/TMA[[id number]] Collected: 08/29/2021 02:58 PM Specimen Received: 08/30/2021 06:15 PM Source: [facility] SARS-CoV-2 INTERPRETATION [[id number]] 08/31/2021 05:05 A M Negative See OzsmBWYB-BtS-4 RNA NOT DETECTEDNegative results do not preclude SARS-CoV-2 infection and should notbe used as the sole basis for patient management decisions. Negativeresults must be combined with clinical observations, patient history,and epidemiological information. Optimum specimen types and timingfor peak viral levels during infections caused by SARS-CoV-2 have notbeen determined. Collection of multiple specimens or types ofspecimens may be necessary to detect virus. Improper specimencollectionand handling, sequence variability under primers/probes,or organism present below the limit of detec tion may lead to falsenegative results. Positive and negative predictive values oftesting are highly dependent on prevalence. False negative testresults are more likely when prevalence is high.SOURCE [[id number]]08/31/2021 05:05 AM NASOPHARYNGEALNote: Methodology is Charo Dolores Real-Time RT-PCR. The expected result or reference range is NEGATIVE (Not Detected). For more information regarding COVID-19 testing to include clinicalinformation, methodology detail, intended use, FDA authorization andrecommended fact sheets for patients or healthcare providers, see [employer] Announcement: SARS-CoV-2 (COVID-19) by NAAT at URL below (note,fact sheets are provided by method given in report:[email or web address]/ Alternatively, see downloadable PDF fact sheet at:[email or web address] Allergies, adverse reactions, alerts No known allergies and adverse reactions Medications No administered medications reported Vital Signs No vital signs reported Social History No smoking Hx information available
--- OUTSIDE RECORDS SUMMARY | 2025-09-19 10:31 | XMS_ITS | Clinical Summary ---
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 Name Role Phone Unavailable Primary Care Provider Unavailabl e Social History Tobacco UseTypesPacks/DayYears UsedDateSmoking Tobacco: Never AssessedUT Safety & EnvironmentAnswerDate RecordedFear of Current or Ex-PartnerNot on file 01/13/2024Emotionally AbusedNot on file01/13/2024hysically AbusedNot on file 01/13/2024Sexually AbusedNot on file4Physically or Sexually AbusedNot on file01/13/2024Sex and Gender InformationValueDate RecordedSex Assigned at BirthNot on fileLegal PhpLjqi3505/20/2022 10:43 PM EDTGender IdentityNot on file Sexual OrientationNot on file Last Filed Vital Signs Vital SignReadingTime TakenCommentsBlood Vmalolzp018/8402 11:02 AM EST Qefqv953112/26/2018 11:02 AM ESTTemperature--Respiratory Rate--Oxygen Saturation-- Inhaled Oxygen Concentration--Yvibif91.5 kg (204 lb)03/28/2021 1:29 PM EDTHeight 175.3 cm (5' 9 )12/26/2018 10:59 AM ESTBody Mass Index30.13012/26/2018 10:59 AM EST Plan of Treatment Health MaintenanceDue DateLast DoneCommentsCT Olhybykwmych1966Colonoscopy 1966Colorectal Cancer Xpquctehz1966FIT-DNA1966FIT1966 FOBT1966Medicare Annual Wellness (AWV)1966 8719Jndnpummxgbjn1966 Diabetes: Retinopathy Ccvqhcerl80/20/1976Depression Neteedytu97/20/1978Diabetes: Urine Protein Norocxhqf84/20/1985Hepatitis B Vaccines (1 of 3 - 19+ 3-dose series)1985Adult Xrureig8211/10/1988Zoster Vaccines (1 of 2)2016 Diabetes: Hemoglobin A1CCOVID-19 Vaccine (2024- season)2025Influenza Vaccine (#1)2025HIB VaccinesAged OutNo longer eligible based on patient's age to complete this topicHPV VaccinesAged OutNo longer eligible based on patient's age to complete this topicIPV VaccinesAged OutNo longer eligible based on patient's age to complete this topicMeningococcal B VaccineAged OutNo longer eligible based on patient's age to complete this topicMeningococcal VaccineAged OutNo longer eligible based on patient's age to complete this topicPneumococcal Vaccine: Pediatrics (0 to 5 Years) and At-Risk Patients (6 to 64 Years)Aged OutNo longer eligible based on patient's age to complete this topicRotavirus VaccinesAged OutNo longer eligible based on patient's age to complete this topic Procedures Procedure NamePriorityDate/TimeAssociated DiagnosisCommentsHEMOGLOBIN G9JZuwsctb 12/26/2018 12:20 PM EST from Last 3 Months or Most Recently Relevant to Health Maintenance Results * (ABNORMAL) Hemoglobin A1C (12/26/2018 12:20 PM EST)ComponentValueRef RangeTest MethodAnalysis TimePerformed AtPathologist SignatureHemoglobin A1C7.6(H)4.0 - 6.0 %LAB CONVERSIONSEstimated Average Vafagmu541(H)70 - 126 mg/dLLAB CONVERSIONSSpecimen (Source)Anatomical Location / LateralityCollection Method / VolumeCollection TimeReceived Time12/26/2018 12:20 PM EST12/26/2018 12:20 PM EST Narrative Authorizing ProviderResult TypeResult StatusJocamila YFrankie ClarosLAB BLOOD ORDERABLESFinal ResultPerforming OrganizationAddressCity/State/ZIP CodePhone Number LAB CONVERSIONS from Last 3 Months or Most Recently Relevant to Health Maintenance Insurance * Guarantor: Rashel Rodriguez TypeRelation to PatientDate of BirthPhone Billing AddressPersonal/TordmvQyhn1965 [facility] [place] [address]
--- OUTSIDE RECORDS SUMMARY | 2025-09-19 10:31 | XMS_ITS | Clinical Summary ---
Author Organization [facility] Address [address] [place] [id number] Care Team Providers Care Administrative Volunteer Name Role Phone Unavailable Primary Care Provider Unavailabl e Allergies Active AllergyReactionsCriticalityNoted DateCommentsVenom-Honey BeeAnaphylaxis, Other: See Comments,NctawefvGnfoqu67/15/2020 Local swelling Medications MedicationSigDispense QuantityRefillsLast FilledStart DateEnd DateStatus lisinopril (ZESTRIL) 10 mg tablet Take 10 mg by mouth.03/21/2024ctive famotidine (PEPCID) 40 mg tablet Take 40 mg by mouth.01/07/2024ctive atorvastatin (LIPITOR) 40 mg tablet Take 40 mg by mouth.01/18/2020Active hydroCHLOROthiazide 12.5 mg tablet Take 12.5 mg by mouth.06/19/2021ctive pantoprazole DR (PROTONIX) 40 mg tablet Take 40 mg by mouth.01/07/2024ctive insulin regular, human (NOVOLIN R INJECTION) by INJECTION(UNSPECIFIED PARENTERAL ROUTES) route.Active metoclopramide HCl (GIMOTI) 15 mg/spray nasal spray Indications:Diabetic gastroparesis (HCC)Use 1 spray in the nose four times daily. 9.[address] (PROTONIX) 40 mg tablet Indications:Diabetic gastroparesis (HCC)Take 1 tablet by mouth two times a day. Start taking medication after procedure for 4 weeks. 60 tablet 5Active Active Problems ProblemNoted DateDiagnosed DateHistory of transmetatarsal amputation of right foot5Anxiety, nnctihnwceb56/15/2024PAD (peripheral artery disease) 01/06/2024Obesity (BMI 30-39.9)11/02/2023astroesophageal reflux disease 10/27/2023 Overview (04/24/2025): EGD 02/03/24 Hizfxotvjfzk07/06/2023Nausea and yvusyeje53/24/6692Dhlxheqyjlvupg92/30/2021Type 2 diabetes mellitus with retinopathy of both eyes, with long-term current use of xocpxfv6711/06/2020 Social History Tobacco UseTypesPacks/DayYears UsedDateSmoking Tobacco: NeverPassive Smoke Exposure: NeverSmokeless Tobacco: Never Tobacco Cessation:Counseling Given: Not Answered Area Deprivation IndexAnswerDate RecordedNational Score (1-100), lower number is lower gecm123910/24/2024State Score (1-10), lower number is lower qxyb26912/25/2023 Data from: https://www.neighborhoodatlas.medicine.[facility].edu/. Last address used for marliv[address]kye[address] [facility]10/24/2024Sex and Gender InformationValueDate RecordedSex Assigned at BirthNot on fileLegal CeoAnfr2308/07/2021 3:23 PM EDT Gender IdentityNot on fileSexual OrientationNot on file Last Filed Vital Signs Vital SignReadingTime TakenCommentsBlood Pzargbhv963/8404/10/2025 10:30 AM EDT Oknmr04175/20/2025 10:30 AM AVJOvwvrtcwdio71.8 ??C (98.3 ??F)10/24/2024 8:45 AM ESTRespiratory Rate--Oxygen Pldtdetids55%10/24/2024 8:45 AM ESTInhaled Oxygen Concentration--Uungby781 kg (253 lb 8.5 oz)04/10/2025 10:30 AM KMIEpwnjj637.8 cm (5' 10 )04/10/2025 10:30 AM EDTBody Mass Index36.38004/10/2025 10:30 AM EDT Plan of Treatment Health MaintenanceDue DateLast DoneCommentsDiabetic Foot Exam1976Dilated Retinal Exam1976Annual PCP Team Chronic Disease Visit1984Depression Hgtkepjpi68/20/1984HIV Pyvaqsnym87/20/1984Hepatitis C Nkdcpsmjw83/20/1984LDL Aztujttcqce22/20/1984Hepatitis B Vaccine (1 of 3 - 19+ 3-dose series)1985 Pneumococcal Vaccine: 50+ (1 of 2 - PCV)1985CT Slkjcmtaqnkz10/20/2011 Cologuard (FIT-DNA)11/10/20119291Zwljscrcapj62/20/2011Colorectal Cancer Screening 2011Fecal Occult Blood2011Prostate Cancer Screening Discussion 11/10/20114984Ywhenshruqtwi20/20/2011Shingrix Vaccine (1 of 2)2016Medicare Advantage Annual Wellness Visit11/22/2024Urine Albumin:Creatinine Ratio /08/2024, 11/06/2020, 05/12/20182311FqB0Z14/, 05/01/2024, 05/01/2024, Additional history existsCovid-19 Vaccine (1 - 2024- season)2025Influenza Vaccine (#1)2025DTaP,Tdap,Td Vaccine (2 - Td or Tdap)/ Procedures Procedure NamePriorityDate/TimeAssociated DiagnosisCommentsHEMOGLOBIN X8SMbbohla 04/10/2025 11:25 AM EDT Gastroparesis from Last 3 Months or Most Recently Relevant to Health Maintenance Results * (ABNORMAL) HEMOGLOBIN A1C (04/10/2025 11:25 AM EDT)ComponentValueRef RangeTest MethodAnalysis TimePerformed AtPathologist SignatureHemoglobin A1C11.0(H)4.3 - 5.6 %04/10/2025 9:27 PM [facility] LABComment:[place] Diabetes [employer] guidelines indicate that patients with HgbA1c in the range 5.7-6.4% are at increased risk for development of diabetes, and intervention by lifestyle modification may be beneficial. HgbA1c greater or equal to 6.5% is considered diagnostic of diabetes.Estimated Average Glucose 269mg/dL04/10/2025 9:27 PM [facility] LABComment:eAG: (Estimated average glucose) is a calculated value from HgbA1c and is quality audit representative of the average blood glucose level in the last 2-3 month period.Specimen (Source)Anatomical Location / LateralityCollection Method / VolumeCollection TimeReceived TimeBloodBLOOD SPECIMEN / UnknownVenipuncture / Borlzpb6604/10/2025 11:25 AM EDT04/10/2025 11:28 AM EDT Narrative Authorizing ProviderResult TypeResult StatusMichael S Figueredo DOLABORATORYFinal ResultPerforming OrganizationAddressCity/State/ZIP CodePhone Number [facility] [address] [facility] [address] [place] [phone], from Last 3 Months or Most Recently Relevant to Health Maintenance Insurance
== END 2025-09-19 10:25 | disposition home or self-care (01) ==
LOC: WC 10:25
PROVIDERS: PCP Family Medicine; Visit Provider Podiatrist Foot & Ankle Surgery
DX: E11.621 Type 2 diabetes mellitus with foot ulcer (principal); L97.415 Non-pressure chronic ulcer of right heel and midfoot with muscle involvement without evidence of necrosis
CPT/HCPCS: 11042; 29445

== ENCOUNTER 2025-09-24 09:46 | Outpatient (OUT) | payer MEDICARE, SELFPAY ==
--- OUTSIDE RECORDS SUMMARY | 2025-09-21 07:30 | XMS_ITS | Encounter Summary ---
Author Organization [facility] tem Address [facility] [id number] [address] 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 [employer] Name Role Phone Jessee Molina DO Primary Care Provider [phone] Reason for Visit * ReasonCommentsFollow-upDiabetes/A1C/ Right foot wound Encounter Details DateTypeDepartmentCare Team (Latest Contact Info)Okofpqxzvdb52/31/2025 8:30 AM EDTClinical Support [facility] [address] [place] [address] [place] [address] Jessee Molina DO 605 [facility], [address], [place] [address] Gastroesophageal reflux disease, unspecified whether esophagitis present (Primary Dx); Type 2 diabetes mellitus with foot ulcer, with long-term current use of insulin ([facility]); Benign essential HTN; Chronic midline low back pain without sciatica; Mixed hyperlipidemia due to type 2 diabetes mellitus ([facility]) Social History Tobacco UseTypesPacks/DayYears UsedDateSmoking Tobacco: NeverSmokeless Tobacco: NeverAlcohol UseStandard Drinks/WeekCommentsNot Currently0 (1 standard drink = 0.6 oz pure alcohol)quit 2006Social Connection and Isolation PanelAnswerDate RecordedIn a typical week, how many times do you talk on the phone with family, friends, or neighbors?Twice a week02/07/2021How often do you get together with friends or relatives?Never02/07/2021How often do you attend hindu or advent services?Never03/19/2021Do you belong to any clubs or organizations such as hindu groups, unions, fraternal or athletic groups, or school groups?No 02/07/2021How often do you attend meetings of the clubs or organizations you belong to?Never02/07/2021re you , , , , never , or living with a partner?Ytgkvzhl84/19/2021Overall Financial Resource Strain (CARDIA)AnswerDate RecordedHow hard is it for you to pay for the very basics like food, housing, medical care, and heating?Not very hard02/07/2021 PHQ-2AnswerDate RecordedTotal Uvkyu141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 [...] InformationValueDate RecordedSex Assigned at BirthNot on fileLegal HoaZktp4006/27/2015 11:23 AM EDTGender IdentityNot on fileSexual OrientationNot on filedocumented as of this encounter Last Filed Vital Signs Vital SignReadingTime TakenCommentsBlood Rycnsdod928/7409/21/2025 8:28 AM EDT Jqhmv566009/21/2025 8:28 AM WRQNmohbfhhyhv23.5 ??C (97.7 ??F)09/21/2025 8:28 AM EDTRespiratory Rate--Oxygen Avegldprdn52%09/21/2025 8:28 AM EDTInhaled Oxygen Concentration--Skigde303.9 kg (257 lb 12.8 oz)09/21/2025 8:28 AM EDTHeight--Body Mass Index38.6206 2:12 PM EDTdocumented in this encounter Functional Status * AUDIT-C ScoreAnswerDate of RxugpbgkgrAwhucp698/31/2025 8:28 AM Danielle Lopez CNA * QuestionAnswerDate [...] from the original note were not included. [facility] [address] [place] [address] Patient: Rashel Rodriguez Jr. Date of : [...] poor repair Diabetes mellitus type 2, controlled ([facility]) 1999 Hyperlipidemia Hypertension PICC (peripherally inserted central catheter) flush 02/2021 Visual impairment glasses Past Surgical History: Procedure Laterality Date AMPUTATION SYMES LOWER EXTREMITY Left 04/18/2021 Performed by Ghulam Brooke DPM at [facility] AMPUTATION TOEMID FOOT OSTEOTOMY ACHILLES TENOTOMY Left 02/07/2021 Performed by Ghulam Brooke DPM at [facility] ASPIRATION BONE MARROW BIOPSY BONE MARROW (BONE BIOPSY) Left 03/24/2021 Performed by Ghulam Brooke DPM at [facility] CLOSURE WOUND LOWER EXTREMITY (DELAYED PRIMARY CLOSURE) Left 03/24/2021 Performed by Ghulam Brooke DPM at [facility] DEBRIDEMENT FOOT/ANKLE Left 02/07/2021 Performed by Ghulam Brooke DPM at [facility] EXOSTECTOMY FOOT Right 09/01/2021 Performed by Ghulam Brooke DPM at [facility] PHACO KELMAN I IMPLANT INTRAOCULAR LENS Right 12/28/2019 Performed by Debra Trejo MD at [facility] REMOVAL HARDWARE FOOT/TOE, AND REMOVAL ANTIBIOTIC SPACER Left 03/24/2021 Performed by Ghulam Brooke DPM at [facility] TONSILLECTOMY as child Family History [...] and 11 to the basement. Worked at [employer]. Now disabled Social Drivers of Health Financial Resource Strain: Low Risk (01/06/2024) Received from [facility] Healthcare Overall Financial Resource Strain (CARDIA) Difficulty [...] Needs: Unmet Transportation Needs (01/06/2024) Received from [facility] PRAPARE - Transportation Lack of Transportation (Medical): Yes Lack of Transportation (Non-Medical): Yes Physical Activity: Inactive (01/06/2024) Received from [facility] Exercise Vital Sign On average, how many days per week do you engage in moderate to strenuous exercise (like a brisk walk)?: 0 days On average, how many minutes do you engage in exercise at this level?: 0 min Stress: Stress Concern Present (01/06/2024) Received from [facility] [place] of Occupational Health - Occupational Stress Questionnaire Feeling of Stress : Very much Social Connections: Socially Isolated (01/06/2024) Received from [facility] Social Connection and Isolation Panel In a typical week, how many times do you talk on the phone with family, friends, or neighbors?: Never How often do you get together with friends or relatives?: Never How often do you attend hindu or advent services?: Never Do you belong to any clubs or organizations such as hindu groups, unions, fraternal or athletic groups, or school groups?: Yes How often do you attend meetings of the clubs or organizations you belong to?: Never Are you , , , , never , or living with a partner?: Interpersonal Safety: Unknown (01/13/2024) Received from [facility] [place] Safety & Environment Fear of Current or Ex-Partner: Not on file Emotionally Abused: Not on file Physically Abused: Not on file Sexually Abused: Not on file Physically or Sexually Abused: Not on file Housing Instability: Low Risk (01/06/2024) Received from [facility] Housing Stability Vital Sign Unable to [...] HISTORY: Right foot ulcer, with unspecified severity ([facility] COMPARISON: 03/04/2025 IMPRESSION: Unchanged indication about the [...] with long-term current use of insulin ([facility]) - POCT Hemoglobin A1c - insulin glargine [...] due to type 2 diabetes mellitus ([facility]) No problem-specific Assessment & Plan notes found [...] Plan of Treatment DateTypeDepartmentCare Team (Latest Contact Info)Dqwfzkwyadi81/02/2026 11:00 AM ESTClinical Support [facility] [address] [place] [phone] Jessee Molina DO [address] [place] [address], [facility], [place] [address] documented as of this encounter Goals GoalPatient Goal TypeAssociated ProblemsRecent ProgressPatient-Stated?Author <enter goal here> Yulia Leon, ISAIAS Note: Evaluation of progress towards goal: pr retirement facility documented as of this encounter Procedures Procedure NamePriorityDate/TimeAssociated DiagnosisCommentsPOCT HEMOGLOBIN A1C Mvayhoh2009/21/2025 8:50 AM EDT Type 2 diabetes mellitus with foot ulcer, with long-term current use of insulin ([facility]) documented in this encounter Results * (ABNORMAL) POCT Hemoglobin A1c (09/21/2025 8:50 AM EDT)ComponentValueRef Range Test MethodAnalysis TimePerformed AtPathologist SignatureExternal Poct Hgb A1C 9.0(A)4 - 7 %MANUALLY TRANSCRIBED RESULTSADA Target < 8YesMANUALLY TRANSCRIBED RESULTSSpecimen (Source)Anatomical Location / LateralityCollection Method / VolumeCollection TimeReceived PodoObmty83/31/2025 8:50 AM EDT Narrative Authorizing ProviderResult TypeResult StatusMicfelicia Molina DOPOINT OF CARE TEST ORDERABLESFinal ResultPerforming OrganizationAddressCity/State/ZIP CodePhone Number MANUALLY TRANSCRIBED RESULTS documented in this encounter Visit Diagnoses Diagnosis Gastroesophageal reflux disease, unspecified whether esophagitis present- Primary Type 2 diabetes mellitus with foot ulcer, with long-term current use of insulin ([facility]) Benign essential HTN Chronic midline low back pain without sciatica Mixed hyperlipidemia due to type 2 diabetes mellitus ([facility]) documented in this encounter Additional Health Concerns AssessmentNoted TimePHQ-9 Depression Total Score: 8:28 AM EDT documented as of this encounter Care Teams Team MemberRelationshipSpecialtyStart DateEnd Date Jessee Molina DO [address] [place] [address], [place] [address] PCP - GeneralFamily Medicine04/26/25documented as of this encounter
--- OUTSIDE RECORDS SUMMARY | 2025-09-24 09:48 | XMS_ITS | Clinical Summary ---
Author Organization [facility] [employer] tem Address [id number] [address] [place] [address] Care Team Providers Care Human Service Specialist Name Role Phone Brendalauren Jessee Duran DO Primary Care Provider [phone] Allergies Active AllergyReactionsCriticalityNoted DateCommentsBee Venom Protein (Honey Bee)Other (See Comments)Xpzjnf4611/05/2020 Local swelling Medications MedicationSigDispense QuantityRefillsLast FilledStart DateEnd [...] INSTILL 1 DROP INTO LEFT EYE AT XHZNHXV92/07/2025Active BD VERO 2ND GEN PEN NEEDLE 32 gauge x 5/32 needle 1 Pen Needle by other route 3 (three) times a day.5Active blood-glucose meter kit Indications:Type 2 diabetes mellitus with foot ulcer, with long-term current use of insulin ([facility])Use as instructed 1 each 5Active doxycycline (MONODOX) 100 mg capsule TAKE 1 CAPSULE BY MOUTH TWICE DAILY FOR 14 DAYS5Active clopidogreL (PLAVIX) 75 mg tablet Take 1 tablet (75 mg total) by mouth.5Active collagenase (SantyL) ointment Indications:Ulcer of right foot with fat layer exposed ([facility])Apply 1 Application topically in the morning. 30 g 5Active blood sugar diagnostic (ACCU-CHEK GUIDE TEST STRIPS) strip Indications:Type 2 diabetes mellitus with foot ulcer, with long-term current use of insulin ([facility])1 strip by other route 3 (three) times a day. 100 strip 5Active hydroCHLOROthiazide (HYDRODIURIL) 12.5 mg tablet Indications:Benign [...] excessive fat in the blood. 90 tablet 509/6Active niacin (NIASPAN) 500 mg CR tablet Indications:Mixed hyperlipidemia due to type 2 diabetes mellitus ([facility])Take 1 tablet (500 mg total) by mouth nightly. 90 tablet 5Active lisinopriL (PRINIVIL,ZESTRIL) 10 mg tablet Indications:Benign essential HTN,Type 2 diabetes mellitus with foot ulcer, with long-term current use of insulin ([facility])Take 1 tablet (10 mg total) by mouth in the morning for 360 days. 90 tablet 509/6Active semaglutide (OZEMPIC) 0.25 mg or 0.5 mg (2 mg/3 mL) pen injector Indications:Type 2 diabetes mellitus with other circulatory complication, with long-term current use of insulin([facility])Inject 0.5 mg under the skin every 7 days. 2 mL 5Active insulin glargine (LANTUS SOLOSTAR U-100 INSULIN) 100 unit/mL (3 mL) insulin pen Indications:Type 2 diabetes mellitus with foot ulcer, with long-term current use of insulin ([facility])Inject 36 Units under the skin in the morning and at bedtime.5Active insulin aspart U-100 (NovoLOG) 100 unit/mL (3 mL) insulin pen Indications:Type 2 diabetes mellitus with foot ulcer, with long-term current use of insulin ([facility])Sliding scale with carb counting before meals three times per day. Max dose 30 units per day5Active vonoprazan (VOQUEZNA) 10 mg tablet Indications:Gastroesophageal reflux disease, unspecified whether esophagitis presentTake 10 mg by mouth in the morning for 30 days. 30 tablet 5Active famotidine (PEPCID) 40 mg tablet Indications:Gastroesophageal reflux disease, unspecified whether esophagitis presentTake 1 tablet (40 mg total) by mouth in the morning and 1 tablet (40 mg total) before bedtime. 60 tablet Discontinued(Alternate therapy) pantoprazole (PROTONIX) 40 mg EC tablet Indications:Gastroesophageal reflux disease, unspecified whether esophagitis presentTake 1 tablet (40 mg total) by mouth in the morning. 90 tablet Discontinued(Alternate therapy) insulin NPH (HumuLIN N,NovoLIN N) 100 unit/mL injection Indications:Type 2 diabetes mellitus with foot ulcer, with long-term current use of insulin ([facility])38 units in the morning and 40 units at nighttime 10 mL Discontinued amoxicillin-pot clavulanate (AUGMENTIN) 875-125 mg per tablet Indications:Ulcer of right foot with fat layer exposed ([facility])Take 1 tablet by mouth in the morning and 1 tablet before bedtime. Do all this for 14 days. 28 tablet Expired Active Problems ProblemNoted DateDiagnosed DatePeripheral artery xqmnbgz6607/06/2025 Assessment & Plan (07/06/2025 2:46 PM EDT): Patient with moderate to severe peripheral artery disease based on studies from hospitalization earlier in June. Patient scheduled to have vascular procedure on 07/09. Improvement in vascular function will help with diabetic foot ulcer heal Chronic midline low back pain without iqokoaeq37/06/2025 Assessment & Plan (05/10/2025 12:57 PM EDT): [...] lisinopril 10 mg daily. Fatty liver disease, anqxlydhprsl35/06/2025 Assessment & Plan (04/27/2025 9:13 PM EDT): Ordered lab work including comprehensive metabolic panel to evaluate for level of transaminase elevation Type 2 diabetes mellitus with pressure rzuahk9404/11/2025Unstable ankle, right 04/11/2025History of transmetatarsal amputation of right foot03/28/2025Ulcer of right foot with fat layer fcbvitd2508/07/2021 Overview (08/07/2021): Added automatically from request for surgery [id number] Osteomyelitis of left foot1Diabetes kestwlpr93/30/2021 Assessment & Plan (07/06/2025 2:42 PM EDT): Patient diabetes is uncontrolled. Due to financial restrictions, he is unable to afford insulin which he uses to control blood sugar. Patient's last hemoglobin A1c from April 2025 was 11.5%. Discussed with patient the importance of blood sugar control. Since patient having difficulty affording the cost of medications we will refer patient to the [facility] medical management team fordiabetes to aid with [...] before meals. Monitor blood sugars before meals. Uuldqueeohynfj12/30/2021Charcot's joint of foot, left03/19/2021 Overview (03/19/2021): Added automatically from request for surgery [id number] Wound, open, foot with complication, left, initial cpqoiftzh05/05/2021epsis 1Diabetic ulcer of right midfoot associated with type 2 diabetes mellitus, with muscle involvement without evidence of iatpwclw71/19/2021hronic osteomyelitis of left foot with draining sinus02/07/2021 Encounters DateTypeDepartmentCare UmfjWzpzhcfsgmu49/31/2025 8:30 AM EDTClinical Support [address] [address] Jessee Molina DO Gastroesophageal reflux disease, unspecified whether esophagitis present (Primary Dx); Type 2 diabetes mellitus with foot ulcer, with long-term current use of insulin ([facility]); Benign essential HTN; Chronic midline low back pain without sciatica; Mixed hyperlipidemia due to type 2 diabetes mellitus ([facility])09/21/2025Travel 08/30/2025Telephone [facility] Medication Management [address] [place] [address] Brianna Ocasio MA 08/27/2025Telephone [facility] Medicine [address] [place] [address] Jessee Molina DO 08/24/2025Telephone [address] [phone] Ana Marquez, [facility] 08/16/2025Telephone [facility] [address] [place] [address] Ana Marquez, [facility] 08/13/2025 8:00 AM EDTClinical Support [facility] Medication Management [address] [facility] [address] 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 ([facility]) [E11.628, L84] (Primary Dx)08/10/2025 10:00 AM EDTOffice Visit [facility] [address] [place] [phone] Jessee Molina, Type 2 diabetes mellitus with other circulatory complication, with long-term current use of insulin([facility]) (Primary Dx); Type 2 diabetes mellitus with foot ulcer, with long-term current use of insulin ([facility]); Benign essential HTN; Mixed hyperlipidemia due to type 2 diabetes mellitus ([facility]); Gastroesophageal reflux disease, unspecified whether esophagitis present; Chronic midline low back pain without sciatica; Ulcer of right foot with fat layer exposed ([facility])08/10/20251646Alglzt09/26/2025 Patient Assistance [facility] Medication Management [address] [place] [address] Medication Management, [facility] 07/17/2025Results Follow-Up [facility] [address] [place] [phone] Jessee Molina DO Lipid panel07/16/2025 8:00 AM EDTClinical Support [facility] - [facility] Medication Management [address] [place] [address] Type 2 diabetes mellitus with other circulatory complication, with long-term current use of insulin([facility]) (Primary Dx)07/16/20257157Fkjioo43/15/2025Telephone [facility] [address] [place] [phone] AlmaAnaDIVINA 07/05/2025 9:30 AM EDTOffice Visit [facility] [address] [place] [address] Jessee Molina, DO Ulcer of right foot with fat layer exposed ([facility]) (Primary Dx); Type 2 diabetes mellitus with foot ulcer, with long-term current use of insulin ([facility]); Hyperlipidemia, unspecified hyperlipidemia type; Gastroesophageal reflux disease, unspecified whether esophagitis present; Peripheral artery ajdmsyw3807/05/2025[facility] [address] [place] [phone] Jessee Molina, Type 2 diabetes mellitus with foot ulcer, with long-term current use of insulin ([facility])07/05/2025[facility] [address] [place] [phone] Jessee Molina, Ulcer of right foot with fat layer exposed ([facility])07/05/2025Telephone [facility] Medication Management [address] [facility] [place] [address] Medication Management, [facility] 07/05/20257397Gyojap04/05/2025Orders Only [facility] [address] [place] [phone] Ref Prov, Not In System from [...] friends or relatives?Never02/07/2021How often do you attend islam or tenriism services?Never1Do you belong to any clubs or organizations such as islam groups, unions, fraternal or athletic groups, or school groups?No 02/07/2021How often do you attend meetings of the clubs or organizations you belong to?Never02/07/2021re you , , , , never , or living with a partner?Fvndzegk01/19/2021Overall Financial Resource Strain (CARDIA)AnswerDate RecordedHow hard is it for you to pay for the very basics like food, housing, medical care, and heating?Not very hard02/07/2021 PHQ-2AnswerDate RecordedTotal Khpvm363[facility] [place] of Occupational Health - Occupational Stress QuestionnaireAnswerDate RecordedDo you feel stress - tense, restless, nervous, or anxious, or unable to sleep at night because your mind is troubled all the time - these days?To some bbbrrj2202/07/2021xercise Vital SignAnswerDate RecordedOn average, how many days [...] on one occasion?Never09/21/2025hildcareAnswerDate RecordedDo problems getting child development teacher make it difficult for you to [...] InformationValueDate RecordedSex Assigned at BirthNot on fileLegal ZkeZzmm9406/27/2015 11:23 AM EDTGender IdentityNot on fileSexual OrientationNot on file Last Filed Vital Signs Vital SignReadingTime TakenCommentsBlood Spyyxwuv921/7409/21/2025 8:28 AM EDT Unbhz345309/21/2025 8:28 AM KDNFstcdzifthq89.5 ??C (97.7 ??F)09/21/2025 8:28 AM EDTRespiratory Xujn254704/24/2025 9:00 AM EDTOxygen Qsgevgmohz36%09/21/2025 8:28 AM EDTInhaled Oxygen Concentration--Yseeyx155.9 kg (257 lb 12.8 oz)09/21/2025 8:28 AM JBTNkglxh458 cm (5' 8.5 )04/26/2025 2:12 PM EDTBody Mass Index38.62 04/26/2025 2:12 PM EDT Plan of Treatment DateTypeDepartmentCare Team (Latest Contact Info)Qigggnskdrx72/02/2026 11:00 AM ESTClinical Support [facility] [address] [place] [address] [place] [address] Jessee Molina, DO [address] [facility], [facility], [place] [address] Health MaintenanceDue DateLast DoneCommentsDiabetic Ophthalmology Exam1966 Adult BMI Follow Up Plan1984Zoster (Shingles) Vaccine (1 of 2)2016 Diabetic Foot Exam/, 02/07/2021Influenza Yvcwnub2207/23/2025 Statin Use: Yfzpsllrtswrpb81/19/202609/Statin Use: Gohvgjop39/19/2026 08/10/2025dult BMI Oxdepepdi69Depression Ahhqxqeou76/31/2026 09/21/2025Tobacco Ukjqwdtth26DTaP,Tdap and Td Vaccines (2 - Td or Tdap) Goals GoalPatient Goal TypeAssociated ProblemsRecent ProgressPatient-Stated?Author <enter goal here> Yulia Leon, ISAIAS Note: Evaluation of progress towards goal: [facility] facility Medical Devices ImplantedTypeAreaManufacturerDevice IdentifierShelf Expiration DateModel / Serial / LotCmnt Bn Bio 40gm Rpl [id number] - [id number] Implanted:Qty: 2 on 02/07/2021 [facility]: Foot[employer]immer [id number] / / [id number] Iol Ultrasert 18.5d - [id number] - [id number] Implanted:Qty: 1 on 12/28/2019 by [facility]: [id number] 18.5 / [id number] / NAExplantedTypeAreaManufacturerDevice IdentifierShelf Expiration DateModel / Serial / LotPin Fx 9in 9/64in Stnm Ft 2 - [id number] Explanted:Qty: 4 on 04/18/2021 at [facility]1628-38-000 / / Description: wilfrid pin from tray (smooth wilfrid pins double ended) Procedures Procedure NamePriorityDate/TimeAssociated DiagnosisCommentsPOCT HEMOGLOBIN A1C Rlvcrgm0209/21/2025 8:50 AM EDT Type 2 diabetes mellitus with foot ulcer, with long-term current use of insulin ([facility]) LIPID NDGMEGCFxwkjoy67/25/2025 9:20 AM EDT Type 2 diabetes mellitus with foot ulcer, with long-term current use of insulin ([facility]) Hyperlipidemia, unspecified hyperlipidemia type from Last 3 Months Results * (ABNORMAL) POCT Hemoglobin A1c (09/21/2025 8:50 AM EDT)ComponentValueRef Range Test MethodAnalysis TimePerformed AtPathologist SignatureExternal Poct Hgb A1C 9.0(A)4 - 7 %MANUALLY TRANSCRIBED RESULTSADA Target < 8YesMANUALLY TRANSCRIBED RESULTSSpecimen (Source)Anatomical Location / LateralityCollection Method / VolumeCollection TimeReceived DcnrKyoik67/31/2025 8:50 AM EDT Narrative Authorizing ProviderResult TypeResult StatusMicfelicia Molina DOPOINT OF CARE TEST ORDERABLESFinal ResultPerforming OrganizationAddressCity/State/ZIP CodePhone Number MANUALLY TRANSCRIBED RESULTS * (ABNORMAL) Lipid panel (07/16/2025 9:20 AM EDT)ComponentValueRef RangeTest MethodAnalysis TimePerformed AtPathologist EfjrnflhcRDODJBABASC162478 - 200 mg/dL07/16/2025 3:26 PM [facility] YNQKVUUTPAOBTSTGMBQQVF741 (H)27 - 150 mg/dL07/16/2025 3:26 PM [facility] LABORATORYHDL BSVDKWUQTVA31(L)>39 mg/dL07/16/2025 3:26 PM [facility] LABORATORYComment: HDL <40 mg/dL - High Risk HDL > or = 40mg/dL- Desirable HDL >60 mg/dL - Negative Risk LDL (CALC)128<130 mg/dL07/16/2025 3:26 PM [facility] Comment: LDL <100 mg/dL - Desirable LDL >160 mg/dL - High Risk CHOLESTEROL:HDL5.8(H)1.0 - 5.008 3:26 PM [facility] LABORATORYVERY LOW JHHMUYMTTJI30(H)0 - 30 mg/dL07/16/2025 3:26 PM [facility] LABORATORYSpecimen (Source)Anatomical Location / Laterality Collection Method / VolumeCollection TimeReceived TimeBloodVenous blood / UnknownVenipuncture / Rspxuzg5307/16/2025 9:20 AM EDT07/16/2025 9:20 AM EDT Narrative Authorizing ProviderResult TypeResult StatusMichael Roger SMITH BLOOD ORDERABLESFinal ResultPerforming OrganizationAddressCity/State/ZIP CodePhone Number [facility] [address] [place] [address], from Last 3 Months Insurance * Guarantor: [facility]Account TypeRelation to PatientDate of PhoneBilling AddressCorporateOther [address] [place] [phone] Advance Directives * Full Code (Latest Code Status on File) Date ActivatedDate InactivatedComments04/17/2021 12:59 PM04/21/2021 5:08 PM * Full Code Date ActivatedDate InactivatedComments02/07/2021 2:54 AM02/13/2021 1:11 AM Care Teams Team MemberRelationshipSpecialtyStart DateEnd Date Jessee Molina DO [address] [place] [address], [place] [address] PCP - GeneralFamily Medicine04/26/25
--- OUTSIDE RECORDS SUMMARY | 2025-09-24 09:48 | XMS_ITS | Encounter Summary ---
Author Organization [facility] tem Address [id number] [address] [place] [address] Care Team Providers Care Dried Yeast Supervisor Name Role Phone BrendaJessee aguilar Roger SCHWARZ Primary Care Provider [phone] Encounter Details DateTypeDepartmentCare Team (Latest Contact Info)Ooolbevuuxz43/31/2025Travel Social History Tobacco UseTypesPacks/DayYears UsedDateSmoking Tobacco: NeverSmokeless Tobacco: NeverAlcohol UseStandard Drinks/WeekCommentsNot Currently0 (1 standard drink = 0.6 oz pure alcohol)quit 2006Social Connection and Isolation PanelAnswerDate RecordedIn a typical week, how many times do you talk on the phone with family, friends, or neighbors?Twice a week02/07/2021How often do you get together with friends or relatives?Never02/07/2021How often do you attend taoism or episcopalian services?Never1Do you belong to any clubs or organizations such as taoism groups, unions, fraternal or athletic groups, or school groups?No 02/07/2021How often do you attend meetings of the clubs or organizations you belong to?Never02/07/2021re you , , , , never , or living with a partner?Cxxnnqpq42/19/2021Overall Financial Resource Strain (CARDIA)AnswerDate RecordedHow hard is it for you to pay for the very basics like food, housing, medical care, and heating?Not very hard02/07/2021 PHQ-2AnswerDate RecordedTotal Adcfc616Finogden [facility] [place] of Occupational Health - Occupational Stress QuestionnaireAnswerDate RecordedDo you feel stress - tense, restless, nervous, or anxious, or unable to sleep at night because your mind is troubled all the time - these days?To some chriqu2102/07/2021xercise Vital SignAnswerDate RecordedOn average, how many days [...] on one occasion?Never09/21/2025hildcareAnswerDate RecordedDo problems getting child care specialist make it difficult for you to work [...] InformationValueDate RecordedSex Assigned at BirthNot on fileLegal MhiElkr8606/27/2015 11:23 AM EDTGender IdentityNot on fileSexual OrientationNot on filedocumented as of this encounter Functional Status * AUDIT-C ScoreAnswerDate of LlrojaockbMzrdlh696/31/2025 8:28 AM Danielle Lopez CNA * QuestionAnswerDate [...] Lopez CNA documented as of this encounter Plan of Treatment DateTypeDepartmentCare Team (Latest Contact Info)Crtlrktmtqz01/02/2026 11:00 AM ESTClinical Support [facility] [address] [place], [place] [phone] Jessee Molina DO 605 [facility], [place] [address] documented as of this encounter Goals GoalPatient Goal TypeAssociated ProblemsRecent ProgressPatient-Stated?Author <enter goal here> Yulia Leon RN Note: Evaluation of progress towards goal: [facility] documented as of this encounter Visit Diagnoses Not on filedocumented in this encounter Additional Health Concerns AssessmentNoted TimePHQ-9 Depression Total Score: 8:28 AM EDT documented as of this encounter Care Teams Team MemberRelationshipSpecialtyStart DateEnd Date Jessee Molina DO [address] [facility], [place] [address] PCP - GeneralFamily Medicine04/26/25documented as of this encounter
--- OUTSIDE RECORDS SUMMARY | 2025-09-24 09:49 | XMS_ITS | Clinical Summary ---
Author Organization [facility] Address [facility] [place] [address] Care Team Providers Care Baker Head Name Role Phone Marilee Staples CNP Primary [...] both eyes, with long-term current use of iejbovu2111/06/2020Secondary DM with DKA 11/05/2020 Family History Medical HistoryRelationCommentsDiabetesBrotherDiabetesFatherHeart diseaseFather DiabetesMotherRelationStatusCommentsBrotherFatherMother Social History Tobacco UseTypesPacks/DayYears UsedDateSmoking Tobacco: NeverSmokeless Tobacco: NeverAlcohol UseStandard Drinks/WeekCommentsYes0 (1 standard drink = 0.6 oz pure alcohol)rarelySex and Gender InformationValueDate RecordedSex Assigned at Not on fileLegal KevEzuf14/15/2020 1:33 PM ESTGender IdentityNot on fileSexual OrientationNot on file Last Filed Vital Signs Vital SignReadingTime TakenCommentsBlood Pyqhuqen322/6003 1:44 PM EDT Qevys01945 1:44 PM KMRTkuosbnthlk90.6 ??C (97.9 ??F)02/06/2021 1:44 PM EDTRespiratory Ktwg370002/06/2021 1:44 PM EDTOxygen Gvsmqbkbkn03%02/06/2021 1:44 PM EDTInhaled Oxygen Concentration--Qtorta558 kg (231 lb 7.7 oz)11/18/2020 11:38 AM ACXTwyvjg999.8 cm (5' 10 )11/18/2020 11:38 AM ESTBody Mass Index33.21 11/18/2020 11:38 AM EST Plan of Treatment Health MaintenanceDue DateLast DoneCommentsCT Rxycjysvuzeo1966Colonoscopy 1966Colorectal Cancer Screening/Gxgvddmqxl1966Fecal DNA1966 Fecal occult blood test (FOBT,FIT)1966PSA Level1966MMR Vaccines (1 of 1 - Standard series)1967Wellness Visit1969Depression Screening/Follow-Up (PHQ-2/9)1978HIV Sxwoyycms77/20/1981Hepatitis C Lmfpbmyrs34/20/1984Hepatitis B Vaccines (1 of 3 - 19+ 3-dose series)1985 Tetanus/Diphtheria/Pertussis (1 - Tdap)1985Pneumococcal Vaccine: 50+ Years (1 of 1 - PCV)2016Zoster Vaccines (1 of 2)2016COVID-19 Vaccine (1 - 2024-25 season)2025Influenza Vaccine (#1)2025RSV Vaccines (1 - 1- dose 75+ series)2041HIB VaccinesAged OutNo longer eligible based on patient's age to complete this topicHPV VaccinesAged OutNo longer eligible based on patient's age to complete this topicHepatitis A VaccinesAged OutNo longer eligible based on patient's age to complete this topicIPV VaccinesAged OutNo longer eligible based on patient's age to complete this topicMeningococcal ACWY VaccineAged OutNo longer eligible based on patient's age to complete this topic Meningococcal B VaccineAged OutNo longer eligible based on patient's age to complete this topicRotavirus VaccinesAged OutNo longer eligible based on patient's age to complete this topic Insurance Advance Directives For more information, please contact: [phone] * Full Code - Unverified (Latest Code Status on File) Date ActivatedDate UedvhtdyubjIvlhjlvw36/15/2020 7:21 PM11/21/2020 10:03 PM Care Teams Team MemberRelationshipSpecialtyStart DateEnd Date Marilee Staples, LICENSED AUDIOLOGIST [address] [place] [address] PCP - GeneralNurse Bftbvcnrwxwn23/15/20
--- OUTSIDE RECORDS SUMMARY | 2025-09-24 09:49 | XMS_ITS | Clinical Summary ---
Author Organization [facility] Address [address] [place] [address] Care Team Providers Care Hr Director Name Role Phone Unavailable Primary Care Provider Unavailabl e Social History Tobacco UseTypesPacks/DayYears UsedDateSmoking Tobacco: Never AssessedUT Safety & EnvironmentAnswerDate RecordedFear of Current or Ex-PartnerNot on file 01/13/2024Emotionally AbusedNot on file01/13/2024hysically AbusedNot on file 01/13/2024Sexually AbusedNot on file4Physically or Sexually AbusedNot on file01/13/2024Sex and Gender InformationValueDate RecordedSex Assigned at BirthNot on fileLegal WxhIxxt5205/20/2022 10:43 PM EDTGender IdentityNot on file Sexual OrientationNot on file Last Filed Vital Signs Vital SignReadingTime TakenCommentsBlood Wdudiiky203/8402 11:02 AM EST Xwtua678612/26/2018 11:02 AM ESTTemperature--Respiratory Rate--Oxygen Saturation-- Inhaled Oxygen Concentration--Kgpawq13.5 kg (204 lb)03/28/2021 1:29 PM EDTHeight 175.3 cm (5' 9 )12/26/2018 10:59 AM ESTBody Mass Index30.13012/26/2018 10:59 AM EST Plan of Treatment Health MaintenanceDue DateLast DoneCommentsCT Pxnhhsenmcql1966Colonoscopy 1966Colorectal Cancer Jjwllgvpu1966FIT-DNA1966FIT1966 FOBT1966Medicare Annual Wellness (AWV)1966 9561Togbhjtukriha1966 Diabetes: Retinopathy Ntwgskgdh84/20/1976Depression Itpmajjqy60/20/1978Diabetes: Urine Protein Prxbgacgl64/20/1985Hepatitis B Vaccines (1 of 3 - 19+ 3-dose series)1985Adult Gflbzmu4511/10/1988Zoster Vaccines (1 of 2)2016 Diabetes: Hemoglobin A1CCOVID-19 [...] complete this topic Procedures Procedure NamePriorityDate/TimeAssociated DiagnosisCommentsHEMOGLOBIN Q3QUrmheau 12/26/2018 12:20 PM EST from Last 3 Months or Most Recently Relevant to Health Maintenance Results * (ABNORMAL) Hemoglobin A1C (12/26/2018 12:20 PM EST)ComponentValueRef RangeTest MethodAnalysis TimePerformed AtPathologist SignatureHemoglobin A1C7.6(H)4.0 - 6.0 %LAB CONVERSIONSEstimated Average Zucwphr318(H)70 - 126 mg/dLLAB CONVERSIONSSpecimen (Source)Anatomical Location / LateralityCollection Method / VolumeCollection TimeReceived Time12/26/2018 12:20 PM EST12/26/2018 12:20 PM EST Narrative Authorizing ProviderResult TypeResult StatusJocamila YFrankie ClarosLAB BLOOD ORDERABLESFinal ResultPerforming OrganizationAddressCity/State/ZIP CodePhone Number LAB CONVERSIONS from Last 3 Months or Most Recently Relevant to Health Maintenance Insurance * Guarantor: Rashel Rodriguez TypeRelation to PatientDate of BirthPhone Billing AddressPersonal/GlmpemEvtr1965 [facility] [place] [address]
--- OUTSIDE RECORDS SUMMARY | 2025-09-24 09:49 | XMS_ITS | Clinical Summary ---
Author Organization [facility] Healthcare Address [address] [place] [address] Care Team Providers Care Management Architect Name Role Phone Unallocated, Noms Provider Primary [...] DROP INTO LEFT EYE IN THE EVENING AUREPFKS68/12/2024ctive moxifloxacin (Vigamox) 0.5 % ophthalmic solution 03/01/2024ctive [...] with hyperglycemia, with long-term current use of xzkykwk4601/06/2024 Assessment & Plan (03/13/2024 9:09 AM EDT): [...] that we could order from [facility] in [place] as they can bill DME, he then [...] done as well!! Family history of heart catiasw4801/06/2024Elevated alkaline phosphatase level 01/06/2024nxiety, iwfezuvncsh56/15/2024Encounter for subsequent annual wellness visit (AWV) in Medicare dltyzct2201/06/2024 Assessment & Plan (01/06/2024 4:55 PM EST): Reviewed Ht/Wt/BMI Recommend eye exam yearly Recommend dental exams twice a year Balance work/leisure activities Exercises is recommended most days of the week (appropriate as chronic conditions allow) Follow up yearly and prn Colon cancer erknhwgbo44/12/2023Obesity (BMI 30-39.9)11/02/2023Vitamin D rytdxunybb78/12/2023 Assessment & Plan (11/02/2023 3:09 PM EST): Check labs Type 2 diabetes mellitus with diabetic neuropathy, tsiisrtceyo39/06/2023 Assessment & Plan (03/13/2024 9:01 AM EDT): Continue with duloxetine as well as elavil Has established telephone advice nurse Assessment & Plan (11/02/2023 3:11 PM EST): Has upcoming appt with diabetic specialist Check labs Fu in 8 weeks Qxcjfipwuozglng97/06/3676Oyrukfebqhwx00/06/2144Kolhfuhrdkyk22/06/2023 Assessment & Plan (03/13/2024 9:02 AM EDT): At goal, no changes to kam Check labs Assessment & Plan (01/06/2024 9:03 PM EST): At goal, labs need completed from 11/13 Gastroesophageal reflux coudnlw3210/27/2023 Overview (02/03/2024): EGD 02/03/24 Assessment & Plan (03/13/2024 9:02 AM EDT): Continue with GI for management of this Assessment & Plan (01/06/2024 9:04 PM EST): Check labs, stable on current meds Assessment & Plan (11/02/2023 3:09 PM EST): No changes in meds Abnormal gait10/27/2023Nausea and uurfpldb90/24/2023hronic /24/2023 Ulcer of right foot with fat layer sspurvx2208/07/2021 Overview (10/27/2023): Added automatically from request for surgery [id number] Fwsspegbyytzgv51/30/2021 Assessment & Plan (11/02/2023 3:09 PM EST): Cont statin Check labs Wpifzbpzny97/05/2014 Resolved Problems ProblemNoted DateDiagnosed DateResolved DateOpen wound of toe10/27/2023 01/06/2024harcot's joint of foot, left Overview (10/27/2023): Added automatically from request for surgery [id number] Wound, open, foot with complication, left, initial conjclwmg78 Ggpdxr96hronic osteomyelitis of left foot with draining sinus iabetic ulcer of left midfoot associated with type 2 diabetes mellitus, with necrosis of boneOpen wound of foot excluding toes1/09308301/06/2024losed multiple fractures of hand bones Immunizations ImmunizationAdministration DatesNext NwwPumv2901/04/2023 Family History Medical HistoryRelationNameCommentsHeart diseaseFatherHyperlipidemiaFather HypertensionFatherDiabetesMotherHyperlipidemiaMotherHypertensionMotherKidney diseaseMotherDiabetesSiblingsisterRelationNameStatusCommentsFatherOtherMother [...] friends or relatives?Never01/06/2024How often do you attend mormonism or rastafari services?Never4Do you belong to any clubs or organizations such as mormonism groups, unions, fraternal or athletic groups, or school groups?Yes 01/06/2024How often do you attend meetings of the clubs or organizations you belong to?Never01/06/2024re you , , , , never , or living with a partner?Lmhugtam69/15/2024UDIT-CAnswerDate Recorded Q1: How often do you have [...] heating?Not hard at all01/06/2024HQ-2AnswerDate RecordedPatient Health Questionnaire-2 Fbtcd916[facility] [place] of Occupational Health - Occupational Stress QuestionnaireAnswerDate [...] steady place to sleep or slept in fruitlandelter (including now)?No01/06/2024Sex and Gender InformationValueDate RecordedSex Assigned at BirthNot on fileLegal AzyByic7202/03/2023 7:39 PM EDT Gender IdentityNot on fileSexual OrientationNot on file Last Filed Vital Signs Vital SignReadingTime TakenCommentsBlood Mgeufhke343/78003/13/2024 8:25 AM EDT Ehqgv97950/22/2024 8:25 AM RCJAwkpadrmsnw61.4 ??C (97.5 ??F)03/13/2024 8:25 AM EDTRespiratory Gyhc309703/13/2024 8:25 AM EDTOxygen Qgxxclzpkb68%03/13/2024 8:25 AM EDTInhaled Oxygen Concentration--Tcvcmh265 kg (256 lb 12.8 oz)03/13/2024 8:25 AM RNKZirpip930.1 cm (5' 10.5 )03/13/2024 8:25 AM EDTBody Mass Index36.33 03/13/2024 8:25 AM EDT Plan of Treatment Health MaintenanceDue DateLast DoneCommentsCT Skgykhecxeaj1966Colonoscopy 1966Colorectal Cancer Gsnlwatcm1966FIT-DNA1966FIT1966 FOBT1966 8551Ywjycwkbyqxdx1966MMR Vaccines (1 of 1 - Standard series) 1967Hepatitis A Vaccines (1 of 2 - Risk 2-dose series)1985Hepatitis B Vaccines (1 of 3 - 19+ 3-dose series)1985Pneumococcal Vaccine: Pediatrics (0 to 5 Years) and At-Risk Patients (6 to 64 Years) (1 of 2 - PCV) 1985DTaP/Tdap/Td Vaccines (2 - Td or Tdap)3Diabetes: Retinopathy Ppfpckxlg94, 02/16/2023Medicare Annual Wellness (AWV)502/, 4Diabetes: Urine Protein Bscunyylh19/10/2025 05/01/2024, 05/01/2024, 05/01/2024, Additional history existsCOVID-19 Vaccine ( season)2025Influenza Vaccine (#1)2025Diabetes: Hemoglobin A1C/09/2025, 04/10/2025, 05/01/2024, Additional history existsHIB VaccinesAged OutNo longer eligible based on patient's age to complete this topic HPV VaccinesAged OutNo longer eligible based on patient's [...] to complete this topic Procedures Procedure NamePriorityDate/TimeAssociated DiagnosisCommentsMICROALBUMIN / CREATININE URINE BPMWFWasmxvh17/10/2024 11:29 AM EDT HEMOGLOBIN N1FNvvmppi81/10/2024 11:29 AM EDT from Last 3 Months or Most Recently Relevant to Health Maintenance Results * Microalbumin / creatinine urine ratio (05/01/2024 11:29 AM EDT)ComponentValue Ref RangeTest MethodAnalysis TimePerformed AtPathologist Signature MICROALBUMIN, URINE1.80.0 - 1.9 mg/dLPROMEDICAURINE PXDCB338.90mg/dLPROMEDICA ALB/CREAT RATIO9.70.0 - 30.0 mg/g creatPROMEDICAComment:PERFORMED AT [facility] [address],[place], [place] [address]Qhtpmwel (Source) Anatomical Location / LateralityCollection Method / [...] in vivo glycation rates are affected. AVERAGE EHCHJJX132ag/dLPROMEDICAComment:PERFORMED AT [facility] [address],[place], [place] [address]Pxzxjmqy (Source)Anatomical Location / LateralityCollection Method / VolumeCollection TimeReceived Time05/01/2024 11:29 AM EDT05/01/2024 11:30 AM EDT Narrative Authorizing ProviderResult TypeResult StatusLisa Aichholz NPLAB BLOOD ORDERABLES Final ResultPerforming OrganizationAddressCity/State/ZIP CodePhone Number [place] from Last 3 Months or Most Recently Relevant to Health Maintenance Insurance Care Teams Team MemberRelationshipSpecialtyStart DateEnd Date Unallocated, Noms Provider, [address] [place] [address] PCP - GeneralFamily Medicine05/30/25
--- OUTSIDE RECORDS SUMMARY | 2025-09-24 09:49 | XMS_ITS | Clinical Summary ---
Author Organization [facility] Address [address], [address] [place] [address] Care Team Providers Care Tentering Machine Off Bearer Name Role Phone Marilee Staples APRN, NP Primary Care Provide r Allergies Active AllergyReactionsCriticalityNoted DateCommentsBee VenomOther (See Comments)Jmlsnx9911/05/2020 Local swelling Medications MedicationSigDispense QuantityRefillsLast FilledStart DateEnd [...] vial Inject 32 Units into the skin uufrfck1711/20/2020Active B-D UF III MINI PEN NEEDLES 31G X 5 MM MISC 04/22/2021ctive lisinopril (PRINIVIL;ZESTRIL) 10 MG tablet Take 10 mg by mouth daily (with breakfast)Active Social History Tobacco UseTypesPacks/DayYears UsedDateSmoking Tobacco: NeverSmokeless Tobacco: NeverSex and Gender InformationValueDate RecordedSex Assigned at BirthNot on fileLegal BjxTcoq3706/10/2015 2:59 PM EDTGender IdentityNot on fileSexual OrientationNot on file Last Filed Vital Signs Vital SignReadingTime TakenCommentsBlood Jditlgef992/8206 10:44 AM EDT Vpfpq1075/02/2021 10:44 AM CKVVkxwhgddbvd98.4 ??C (97.5 ??F)04/23/2021 10:44 AM EDTRespiratory Negl847204/23/2021 10:44 AM EDTOxygen Fwhxowhrxq12%04/23/2021 10:44 AM EDTROOM AIR AT RESTInhaled Oxygen Concentration--Gduzax54.3 kg (208 lb) 04/23/2021 10:44 AM AGLYakfji198.8 cm (5' 10 )04/23/2021 10:44 AM EDTBody Mass Index29.8404/23/2021 10:44 AM EDT Plan of Treatment Not on file Insurance Care Teams Team MemberRelationshipSpecialtyStart DateEnd Date Marilee Staples, [employer] - VOCATIONAL REHABILITATION SPECIALIST [address] [place] [id number] PCP - GeneralNurse Practitioner03/26/21
--- OUTSIDE RECORDS SUMMARY | 2025-09-24 09:49 | XMS_ITS | Clinical Summary ---
Author Organization [facility] Address [address] [place] [address] Care Team Providers Care Picker Tender Name Role Phone Unavailable Primary Care Provider Unavailabl e Allergies Active AllergyReactionsCriticalityNoted DateCommentsVenom-Honey BeeAnaphylaxis, Other: See Comments,GbxbtfecFsfiyc55/15/2020 Local swelling Medications MedicationSigDispense QuantityRefillsLast FilledStart DateEnd [...] DateHistory of transmetatarsal amputation of right foot5Anxiety, /15/2024PAD (peripheral artery disease) 01/06/2024Obesity (BMI 30-39.9)11/02/2023astroesophageal reflux disease 10/27/2023 Overview (04/24/2025): EGD 02/03/24 Myifiscwuead96/06/2023Nausea and umbjyelz92/24/8669Iijuuvisfsfduq29/30/2021Type 2 diabetes mellitus with retinopathy of both eyes, with long-term current use of ofzsygk8911/06/2020 Social History Tobacco UseTypesPacks/DayYears UsedDateSmoking Tobacco: NeverPassive Smoke Exposure: NeverSmokeless Tobacco: Never Tobacco Cessation:Counseling Given: Not Answered Area Deprivation IndexAnswerDate RecordedNational Score (1-100), lower number is lower iqpg539710/24/2024State Score (1-10), lower number is lower gepg50812/25/2023 Data from: https://www.neighborhoodatlas.medicine.[facility].edu/. Last address used for i[address]10/24/2024Sex and Gender InformationValueDate RecordedSex Assigned at BirthNot on fileLegal WssNgzr3308/07/2021 3:23 PM EDT Gender IdentityNot on fileSexual OrientationNot on file Last Filed Vital Signs Vital SignReadingTime TakenCommentsBlood Hylujpoo574/8404/10/2025 10:30 AM EDT Gpnzn77199/20/2025 10:30 AM MJRQwnhvvusabi96.8 ??C (98.3 ??F)10/24/2024 8:45 AM ESTRespiratory Rate--Oxygen Stfdzvxyre79%10/24/2024 8:45 AM ESTInhaled Oxygen Concentration--Iipjrr442 kg (253 lb 8.5 oz)04/10/2025 10:30 AM RPIWxyfab812.8 cm (5' 10 )04/10/2025 10:30 AM EDTBody Mass Index36.38004/10/2025 10:30 AM EDT Plan of Treatment Health MaintenanceDue DateLast DoneCommentsDiabetic Foot Exam1976Dilated Retinal Exam1976Annual PCP Team Chronic Disease Visit1984Depression Wncnfssqq37/20/1984HIV Zggauiutp79/20/1984Hepatitis C Kjsxxrhcc68/20/1984LDL Kyevjpbgbsg87/20/1984Hepatitis B Vaccine (1 of 3 - 19+ 3-dose series)1985 Pneumococcal Vaccine: 50+ (1 of 2 - PCV)1985CT Bthfzztlomwf17/20/2011 Cologuard (FIT-DNA)11/10/20117281Mkopzspslko33/20/2011Colorectal Cancer Screening 2011Fecal Occult Blood2011Prostate Cancer Screening Discussion 11/10/20118581Pvkzwgnytoxvc02/20/2011Shingrix Vaccine (1 of 2)2016Medicare Advantage Annual Wellness Visit11/22/2024Urine Albumin:Creatinine Ratio /08/2024, 11/06/2020, 05/12/20188168TmX3F43/, 05/01/2024, 05/01/2024, Additional history existsCovid-19 Vaccine (1 - 2024- season)2025Influenza Vaccine (#1)2025DTaP,Tdap,Td Vaccine (2 - Td or Tdap)/ Procedures Procedure NamePriorityDate/TimeAssociated DiagnosisCommentsHEMOGLOBIN E3GRpcylub 04/10/2025 11:25 AM EDT Gastroparesis from Last 3 Months or Most Recently Relevant to Health Maintenance Results * (ABNORMAL) HEMOGLOBIN A1C (04/10/2025 11:25 AM EDT)ComponentValueRef RangeTest MethodAnalysis TimePerformed AtPathologist SignatureHemoglobin A1C11.0(H)4.3 - 5.6 %04/10/2025 9:27 PM [facility] LABComment:[place] Diabetes Association guidelines indicate that patients with HgbA1c in the range 5.7-6.4% are at increased risk for development of diabetes, and intervention by lifestyle modification may be beneficial. HgbA1c greater or equal to 6.5% is considered diagnostic of diabetes.Estimated Average Glucose 269mg/dL04/10/2025 9:27 PM [facility] LABComment:eAG: (Estimated average glucose) is a calculated value from HgbA1c and is customer sales representative of the average blood glucose level in the last 2-3 month period.Specimen (Source)Anatomical Location / LateralityCollection Method / VolumeCollection TimeReceived TimeBloodBLOOD SPECIMEN / UnknownVenipuncture / Ecgqvot0404/10/2025 11:25 AM EDT04/10/2025 11:28 AM EDT Narrative Authorizing ProviderResult TypeResult StatusMichael S Figueredo DOLABORATORYFinal ResultPerforming OrganizationAddressCity/State/ZIP CodePhone Number [facility] [address] [place] [phone], from Last 3 Months or Most Recently Relevant to Health Maintenance Insurance
== END 2025-09-24 09:47 | disposition home or self-care (01) ==
LOC: WC 09:46
PROVIDERS: PCP Family Medicine; Visit Provider Physician Assistant
DX: E11.621 Type 2 diabetes mellitus with foot ulcer (principal); L97.415 Non-pressure chronic ulcer of right heel and midfoot with muscle involvement without evidence of necrosis
CPT/HCPCS: 29445

== ENCOUNTER 2025-09-28 10:01 | Outpatient (OUT) | payer MEDICARE, SELFPAY ==
--- OUTSIDE RECORDS SUMMARY | 2025-09-21 07:30 | XMS_ITS | Encounter Summary ---
Author Organization [facility] tem Address [id number] [address] [place] [address] Care Team Providers Care Supervisor Dials Name Role Phone Jessee Molina DO Primary Care Provider [phone] Reason for Visit * ReasonCommentsFollow-upDiabetes/A1C/ Right foot wound Encounter Details DateTypeDepartmentCare Team (Latest Contact Info)Hpptbfxwmmb06/31/2025 8:30 AM EDTClinical Support [facility] [address] [place] [address] [address] [address] Jessee Molina DO [address] [facility], [address], [place] [address] Gastroesophageal reflux disease, unspecified whether esophagitis present (Primary Dx); Type 2 diabetes mellitus with foot ulcer, with long-term current use of insulin ([facility]); Benign essential HTN; Chronic midline low back pain without sciatica; Mixed hyperlipidemia due to type 2 diabetes mellitus ([facility]) Social History Tobacco UseTypesPacks/DayYears UsedDateSmoking Tobacco: NeverSmokeless Tobacco: NeverAlcohol UseStandard Drinks/WeekCommentsNot Currently0 (1 standard drink = 0.6 oz pure alcohol)quit 2006Social Connection and Isolation PanelAnswerDate RecordedIn a typical week, how many times do you talk on the phone with family, friends, or neighbors?Twice a week02/07/2021How often do you get together with friends or relatives?Never02/07/2021How often do you attend quaker or nondenominational services?Never03/19/2021Do you belong to any clubs or organizations such as quaker groups, unions, fraternal or athletic groups, or school groups?No 02/07/2021How often do you attend meetings of the clubs or organizations you belong to?Never02/07/2021re you , , , , never , or living with a partner?Jqdipmxd21/19/2021Overall Financial Resource Strain (CARDIA)AnswerDate RecordedHow hard is it for you to pay for the very basics like food, housing, medical care, and heating?Not very hard02/07/2021 PHQ-2AnswerDate RecordedTotal Dszmn449[facility] [place] of Occupational Health - Occupational Stress QuestionnaireAnswerDate RecordedDo you feel stress - tense, restless, nervous, or anxious, or unable to sleep at night because your mind is troubled all the time - these days?To some izhakb9902/07/2021xercise Vital SignAnswerDate RecordedOn average, how many days [...] from getting things needed for daily living?No02/07/2021 AUDIT-CAnswerDate RecordedQ1: How often do you have a drink containing alcohol? Never09/21/2025Q2: How many drinks containing alcohol do you have on a typical day when you are drinking?Patient does not drink09/21/2025Q3: How often do you have six or more drinks on one occasion?Never09/21/2025hildcareAnswerDate RecordedDo problems getting child abuse worker make it difficult for you to work or study?No02/07/2021mploymentAnswerDate RecordedDo you need help finding a local career center and/or a training program?No02/07/2021Hunger ScreeningAnswerDate RecordedWithin the past 12 months we worried whether our food would run out before we got money to buy more.Never True09/21/2025Within the past 12 months the food we bought just didn't last and we didn't have money to get more.Never True09/21/2025Purpose - LifeAnswerDate RecordedI have a purpose and direction in my life.Agree02/07/2021ex and Gender InformationValueDate RecordedSex Assigned at BirthNot on fileLegal RueTxpe3006/27/2015 11:23 AM EDTGender IdentityNot on fileSexual OrientationNot on filedocumented as of this encounter Last Filed Vital Signs Vital SignReadingTime TakenCommentsBlood Undksavh937/7409/21/2025 8:28 AM EDT Abmtx171109/21/2025 8:28 AM ESVWyvkxqkcula22.5 ??C (97.7 ??F)09/21/2025 8:28 AM EDTRespiratory Rate--Oxygen Umskwjuvzr18%09/21/2025 8:28 AM EDTInhaled Oxygen Concentration--Gcjmtx456.9 kg (257 lb 12.8 oz)09/21/2025 8:28 AM EDTHeight--Body Mass Index38.6206 2:12 PM EDTdocumented in this encounter Functional Status * AUDIT-C ScoreAnswerDate of EgzokesrfsMijiow461/31/2025 8:28 AM Danielle Lopez CNA * QuestionAnswerDate of AssessmentAuthorQ1: How often do you have a drink containing alcohol?Never09/21/2025 8:28 AM Danielle Lopez CNAQ2: How many drinks containing alcohol do you have on a typical day when you are drinking? Patient does not drink09/21/2025 8:28 AM Danielle Lopez CNAQ3: How often do you have six or more drinks on one occasion?Never09/21/2025 8:28 AM Danielle Lopez CNA documented as of this encounter Patient Instructions * Patient Instructions* Jessee Molina DO - 09/21/2025 8:30 AM EDT HbA1c today at 9.0% which is much better than in April 2025. Continue to monitor blood sugars 2-3 times per day. With starting on Lantus and Novolog. Lantus 36 units injected SQ twice daily and using sliding scale Alejandra log based on carb counting. STOP NPH insulin when starting Hold pantoprazole and Pepcid and start on samples of Voquezna 10 mg 1 tablet daily for heartburn symptoms documented in this encounter Progress Notes * Jessee Molina DO - 09/21/2025 8:30 AM EDT Images from the original note were not included. [facility] [address] [place] [address] Patient: Rashel Rodriguez Jr. Date of : 1965 Encounter Date: 09/21/2025 Subjective: Chief Complaint Chief Complaint Patient presents with Follow-up Diabetes/A1C/ Right foot wound History of Present Illness Rashel Rodriguez Jr. is a 59 y.o. male, established patient, that presents to the office for diabetes follow up. Patient has been experiencing increased back pain. Requesting change in acid reflux medications. History provided by patient Diabetes He presents for his follow-up diabetic visit. He has type 2 diabetes mellitus. His disease course has been improving (Last HbA1c from 05/02/25 at 11.5%. Today HbA1c at 9.0%). Pertinent negatives for hypoglycemia include no sweats or tremors. (He did have BS at 69 mg/dl at midnight. He states that when his blood sugars low that he will have brown vision changes in eyes and will feel different. When he experiences episodes of low blood sugar he has been taking glucose tablets or eating sugarytreat but he states that causes nausea. He has been avoiding using if possible ) Associated symptoms include foot paresthesias and foot ulcerations (Being treated by podiatry and offloading and direct wound care by podiatry. he states that wound developed after superifical skin removedwith removingsocks and then pressure worsened). Pertinent negatives for diabetes include no weight loss (patientwith weight gain as he has been treated for ulceration right foot). Current diabetic treatments: Current meds: Humilin N 38 units in the morning and 40 units in the evening. he recently got lantus and humalog to manage his blood sugars. (Monitoring blood sugars twice daily. See blood sugar chart ) Back Pain This is a chronic problem. The problem has been gradually worsening (He states that aggravated after doing yard work) since onset. The pain is present in the lumbar spine (Typically pain in right lower back but can radiate into lumbar spine.). Quality: Describes as a squeezing pain. Pertinent negatives include no weight loss (patient with weight gain as he has been treated for ulceration right foot). (Associated with stiffness with activity. He states that having to stop 8-10 times to push mow with easy walk before able to complete task. He states that pulling backwards increases discomfort ) Review of Systems Review of Systems Constitutional: Negative for weight loss (patient with weight gain as he has been treated for ulceration right foot). Gastrointestinal: Having increased heartburn symptoms with pain in epigastric area and worsening symptoms when he lays down has reflux that will choke patient and cause regurgitation and emesis. Patient states that symptoms worsened as rationing medications Pantoprazole and Pepcid. He states that even when taking medications that he having break thru heartburn symptoms Musculoskeletal: Positive for back pain. Neurological: Negative for tremors. Vital Signs BP 120/74 (BP Site: Left Arm, BP Postition: Sitting) Pulse 92 Temp 36.5 ??C (97.7 ??F) (Oral) Wt 116.9 kg (257 lb 12.8 oz) SpO2 96% BMI 38.62 kg/m?? Physical Exam Physical Exam Vitals reviewed. Constitutional: General: He is not in acute distress. Appearance: He is not ill-appearing or toxic-appearing. Cardiovascular: Rate and Rhythm: Normal rate and regular rhythm. Heart sounds: No murmur heard. Pulmonary: Effort: Pulmonary effort is normal. No respiratory distress. Breath sounds: No wheezing, rhonchi or rales. Musculoskeletal: Comments: Wearing offloading boot on right foot Neurological: Mental Status: He is alert. Past Medical, Family, Surgery and Social History Past Medical History: Diagnosis Date Acid reflux Anemia Arthritis Cataract right lens implant Charcot's joint 02/2021 left foot Chronic osteomyelitis of foot (CMS-HCC) 02/2021 left/with draining sinus Dental disease poor repair Diabetes mellitus type 2, controlled ([facility]) 1999 Hyperlipidemia Hypertension PICC (peripherally inserted central catheter) flush 02/2021 Visual impairment glasses Past Surgical History: Procedure Laterality Date AMPUTATION SYMES LOWER EXTREMITY Left 04/18/2021 Performed by Ghulam Brooke DPM at [facility] AMPUTATION TOEMID FOOT OSTEOTOMY ACHILLES TENOTOMY Left 02/07/2021 Performed by Ghulam Brooke DPM at [facility] ASPIRATION BONE MARROW BIOPSY BONE MARROW (BONE BIOPSY) Left 03/24/2021 Performed by Ghulam Brooke DPM at [facility] CLOSURE WOUND LOWER EXTREMITY (DELAYED PRIMARY CLOSURE) Left 03/24/2021 Performed by Ghulam Brooke DPM at [facility] DEBRIDEMENT FOOT/ANKLE Left 02/07/2021 Performed by Ghulam Brooke DPM at [facility] EXOSTECTOMY FOOT Right 09/01/2021 Performed by Ghulam Brooke DPM at [facility] PHACO KELMAN I IMPLANT INTRAOCULAR LENS Right 12/28/2019 Performed by Debra Trejo MD at [facility] REMOVAL HARDWARE FOOT/TOE, AND REMOVAL ANTIBIOTIC SPACER Left 03/24/2021 Performed by Ghulam Brooke DPM at [facility] TONSILLECTOMY as child Family History Problem [...] and 10 to the basement. Worked at [employer]. Now disabled Social Drivers of Health Financial Resource Strain: Low Risk (01/06/2024) Received from [facility] Healthcare Overall Financial Resource Strain (CARDIA) Difficulty of Paying Living Expenses: Not hard at all Food Insecurity: No Food Insecurity (09/21/2025) Hunger Screening Food Insecurity - Worry: Never True Food Insecurity - Inability: Never True Recent Concern: Food Insecurity - Food Insecurity Present (08/10/2025) Hunger Screening Food Insecurity - Worry: Sometimes True Food Insecurity - Inability: Sometimes True Transportation Needs: Unmet Transportation Needs (01/06/2024) Received from [facility] PRAPARE - Transportation Lack of Transportation (Medical): Yes Lack of Transportation (Non-Medical): Yes Physical Activity: Inactive (01/06/2024) Received from [facility] Exercise Vital Sign On average, how many days per week do you engage in moderate to strenuous exercise (like a brisk walk)?: 0 days On average, how many minutes do you engage in exercise at this level?: 0 min Stress: Stress Concern Present (01/06/2024) Received from [facility] [place] of Occupational Health - Occupational Stress Questionnaire Feeling of Stress : Very much Social Connections: Socially Isolated (01/06/2024) Received from [facility] Social Connection and Isolation Panel In a typical week, how many times do you talk on the phone with family, friends, or neighbors?: Never How often do you get together with friends or relatives?: Never How often do you attend quaker or nondenominational services?: Never Do you belong to any clubs or organizations such as quaker groups, unions, fraternal or athletic groups, or school groups?: Yes How often do you attend meetings of the clubs or organizations you belong to?: Never Are you , , , , never , or living with a partner?: Interpersonal Safety: Unknown (01/13/2024) Received from [facility] [place] Safety & Environment Fear of Current or Ex-Partner: Not on file Emotionally Abused: Not on file Physically Abused: Not on file Sexually Abused: Not on file Physically or Sexually Abused: Not on file Housing Instability: Low Risk (01/06/2024) Received from [facility] Housing Stability Vital Sign Unable to Pay for Housing in the Last Year: No Number of Places Lived in the Last Year: 1 Unstable Housing in the Last Year: No Allergies and Current Medications Allergies Allergen Reactions Bee Venom Protein (Honey Bee) Other (See Comments) Local swelling Current Outpatient Medications on File Prior to Visit Medication Sig atorvastatin (LIPITOR) 80 mg tablet Take 1 tablet (80 mg total) by mouth daily with breakfast for 360 days Indications: excessive fat in the blood. BD VERO 2ND GEN PEN NEEDLE 32 gauge x 5/32 needle 1 Pen Needle by other route 3 (three) times a day. blood sugar diagnostic (ACCU-CHEK GUIDE TEST STRIPS) strip 1 strip by other route 3 (three) times aday. blood-glucose meter kit Use as instructed celecoxib (CeleBREX) 100 mg capsule Take 1 capsule (100 mg total) by mouth in the morning. cholecalciferol, vitamin D3, 2,000 units capsule Take 1 capsule (2,000 Units total) by mouth in themorning. clopidogreL (PLAVIX) 75 mg tablet Take 1 [...] tablet (12.5 mg total) by mouth daily. latanoprost (XALATAN) 0.005 % ophthalmic solution Administer 1 drop into the left eye once daily atbedtime. INSTILL 1 DROP INTO LEFT EYE AT BEDTIME lisinopriL (PRINIVIL,ZESTRIL) 10 mg tablet Take 1 tablet (10 mg total) by mouth in the morning for 360 days. niacin (NIASPAN) 500 mg CR tablet Take 1 tablet (500 mg total) by mouth nightly. semaglutide (OZEMPIC) 0.25 mg or 0.5 mg (2 mg/3 mL) pen injector Inject 0.5 mg under the skin every7 days. No current facility-administered medications on file prior [...] HISTORY: Right foot ulcer, with unspecified severity ([facility]). COMPARISON: 03/04/2025 IMPRESSION: Unchanged indication about the [...] ulcer, with long-term current use of insulin ([facility]) - POCT Hemoglobin A1c - insulin glargine (LANTUS SOLOSTAR U-100 INSULIN) 100 unit/mL (3 mL) insulin pen; Inject 36 Units under the skin in the morning and at bedtime. - insulin aspart U-100 (NovoLOG) 100 unit/mL (3 mL) insulin pen; Sliding scale with carb counting before meals three times per day. Max dose 30 units per day 2. Gastroesophageal reflux disease, unspecified whether esophagitis present - vonoprazan (VOQUEZNA) 10 mg tablet; Take 10 mg by mouth in the morning for 30 days. Dispense: 30 tablet; Refill: 0 3. Benign essential HTN 4. Chronic midline low back pain without sciatica 5. Mixed hyperlipidemia due to type 2 diabetes mellitus ([facility]) No problem-specific Assessment & Plan notes found for this encounter. Patient Instructions HbA1c today at 9.0% which is much better than in April 2025. Continue to monitor blood sugars 2-3 times per day. With starting on Lantus and Novolog. Lantus 36 units injected SQ twice daily and using sliding scale Alejandra log based on carb counting. STOP NPH insulin when starting Hold pantoprazole and Pepcid and start on samples of Voquezna 10 mg 1 tablet daily for heartburn symptoms Reviewed lumbar x-ray 6 views with flexion and extension views with patient from April 2025. Advisedto use lumbar support when walking long distances or activities that trigger low back pain. Continue with celecoxib 100 mg daily Follow up: 2-3 months DM/htn - Jessee Molina DO 09/21/25 2:02 PM documented in this encounter Plan of Treatment DateTypeDepartmentCare Team (Latest Contact Info)Ikdkilstszr34/02/2026 11:00 AM ESTClinical Support [facility] [address] [place] [address] [phone] Jessee Molina DO [address] [place] [address], [facility], [place] [address] documented as of this encounter Goals GoalPatient Goal TypeAssociated ProblemsRecent ProgressPatient-Stated?Author <enter goal here> Yulia Leon, ISAIAS Note: Evaluation of progress towards goal: [facility] documented as of this encounter Procedures Procedure NamePriorityDate/TimeAssociated DiagnosisCommentsPOCT HEMOGLOBIN A1C Ijviitw8809/21/2025 8:50 AM EDT Type 2 diabetes mellitus with foot ulcer, with long-term current use of insulin ([facility]) documented in this encounter Results * (ABNORMAL) POCT Hemoglobin A1c (09/21/2025 8:50 AM EDT)ComponentValueRef Range Test MethodAnalysis TimePerformed AtPathologist SignatureExternal Poct Hgb A1C 9.0(A)4 - 7 %MANUALLY TRANSCRIBED RESULTSADA Target < 8YesMANUALLY TRANSCRIBED RESULTSSpecimen (Source)Anatomical Location / LateralityCollection Method / VolumeCollection TimeReceived EhimYhooo49/31/2025 8:50 AM EDT Narrative Authorizing ProviderResult TypeResult StatusMicfelicia Molina DOPOINT OF CARE TEST ORDERABLESFinal ResultPerforming OrganizationAddressCity/State/ZIP CodePhone Number MANUALLY TRANSCRIBED RESULTS documented in this encounter Visit Diagnoses Diagnosis Gastroesophageal reflux disease, unspecified whether esophagitis present- Primary Type 2 diabetes mellitus with foot ulcer, with long-term current use of insulin ([facility]) Benign essential HTN Chronic midline low back pain without sciatica Mixed hyperlipidemia due to type 2 diabetes mellitus ([facility]) documented in this encounter Additional Health Concerns AssessmentNoted TimePHQ-9 Depression Total Score: 8:28 AM EDT documented as of this encounter Care Teams Team MemberRelationshipSpecialtyStart DateEnd Date Jessee Molina DO [address] [place] [address], [place] [address] PCP - GeneralFamily Medicine04/26/25documented as of this encounter
--- OUTSIDE RECORDS SUMMARY | 2025-09-28 10:03 | XMS_ITS | Clinical Summary ---
Author Organization [facility] Address [address] [place] [address] Care Team Providers Care Salesperson [employer] Name Role Phone Unavailable Primary Care Provider Unavailabl e Social History Tobacco UseTypesPacks/DayYears UsedDateSmoking Tobacco: Never AssessedUT Safety & EnvironmentAnswerDate RecordedFear of Current or Ex-PartnerNot on file 01/13/2024Emotionally AbusedNot on file01/13/2024hysically AbusedNot on file 01/13/2024Sexually AbusedNot on file4Physically or Sexually AbusedNot on file01/13/2024Sex and Gender InformationValueDate RecordedSex Assigned at BirthNot on fileLegal JiyKcdt0905/20/2022 10:43 PM EDTGender IdentityNot on file Sexual OrientationNot on file Last Filed Vital Signs Vital SignReadingTime TakenCommentsBlood Tkpnajbt661/8402 11:02 AM EST Bptph837912/26/2018 11:02 AM ESTTemperature--Respiratory Rate--Oxygen Saturation-- Inhaled Oxygen Concentration--Jbbpdr87.5 kg (204 lb)03/28/2021 1:29 PM EDTHeight 175.3 cm (5' 9 )12/26/2018 10:59 AM ESTBody Mass Index30.13012/26/2018 10:59 AM EST Plan of Treatment Health MaintenanceDue DateLast DoneCommentsCT Fhjwyovpbhji1966Colonoscopy 1966Colorectal Cancer Uunyrofij1966FIT-DNA1966FIT1966 FOBT1966Medicare Annual Wellness (AWV)1965 7192Lbdmmvzdwlulo1966 Diabetes: Retinopathy Axxsnuukq22/20/1976Depression Cjbzuigge19/20/1978Diabetes: Urine Protein Vihaxxdsl81/20/1985Hepatitis B Vaccines (1 of 3 - 19+ 3-dose series)1985Adult Syylqep1611/10/1988Zoster Vaccines (1 of 2)2016 Diabetes: Hemoglobin A1CCOVID-19 [...] complete this topic Procedures Procedure NamePriorityDate/TimeAssociated DiagnosisCommentsHEMOGLOBIN D6WSannbeo 12/26/2018 12:20 PM EST from Last 3 Months or Most Recently Relevant to Health Maintenance Results * (ABNORMAL) Hemoglobin A1C (12/26/2018 12:20 PM EST)ComponentValueRef RangeTest MethodAnalysis TimePerformed AtPathologist SignatureHemoglobin A1C7.6(H)4.0 - 6.0 %LAB CONVERSIONSEstimated Average Aopuaml306(H)70 - 126 mg/dLLAB CONVERSIONSSpecimen (Source)Anatomical Location / LateralityCollection Method / VolumeCollection TimeReceived Time12/26/2018 12:20 PM EST12/26/2018 12:20 PM EST Narrative Authorizing ProviderResult TypeResult StatusJocamila YFrankie ClarosLAB BLOOD ORDERABLESFinal ResultPerforming OrganizationAddressCity/State/ZIP CodePhone Number LAB CONVERSIONS from Last 3 Months or Most Recently Relevant to Health Maintenance Insurance * Guarantor: Rashel Rodriguez TypeRelation to PatientDate of BirthPhone Billing AddressPersonal/UcsmndEwnv1965 [facility] [place] [address]
--- OUTSIDE RECORDS SUMMARY | 2025-09-28 10:03 | XMS_ITS | Clinical Summary ---
Author Organization [facility] Address [address] [place] [address] Care Team Providers Care Squeegeer And Former Name Role Phone Unallocated, Noms Provider Primary [...] DROP INTO LEFT EYE IN THE EVENING GFFJIQTV01/12/2024ctive moxifloxacin (Vigamox) 0.5 % ophthalmic solution 03/01/2024ctive [...] with hyperglycemia, with long-term current use of lahokjk4201/06/2024 Assessment & Plan (03/13/2024 9:09 AM EDT): [...] that we could order from [facility] in [place] as they can bill DME, he then [...] done as well!! Family history of heart ammbcve9801/06/2024Elevated alkaline phosphatase level 01/06/2024nxiety, jmnetcdxgih13/15/2024Encounter for subsequent annual wellness visit (AWV) in Medicare yuaibnd8201/06/2024 Assessment & Plan (01/06/2024 4:55 PM EST): Reviewed Ht/Wt/BMI Recommend eye exam yearly Recommend dental exams twice a year Balance work/leisure activities Exercises is recommended most days of the week (appropriate as chronic conditions allow) Follow up yearly and prn Colon cancer fmhiiuzcu58/12/2023Obesity (BMI 30-39.9)11/02/2023Vitamin D ulelbocxsy40/12/2023 Assessment & Plan (11/02/2023 3:09 PM EST): Check labs Type 2 diabetes mellitus with diabetic neuropathy, cwqalgjxzac72/06/2023 Assessment & Plan (03/13/2024 9:01 AM EDT): Continue with duloxetine as well as elavil 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 cut off saw operator Assessment & Plan (11/02/2023 3:11 PM EST): Has upcoming appt with diabetic specialist Check labs Fu in 8 weeks Kchyxcizknzsyyw46/06/8095Npkdrcefblaz17/06/3556Eipgzlxdoigy57/06/2023 Assessment & Plan (03/13/2024 9:02 AM EDT): At goal, no changes to kam Check labs Assessment & Plan (01/06/2024 9:03 PM EST): At goal, labs need completed from 11/13 Gastroesophageal reflux ssqulqu1310/27/2023 Overview (02/03/2024): EGD 02/03/24 Assessment & Plan (03/13/2024 9:02 AM EDT): Continue with GI for management of this Assessment & Plan (01/06/2024 9:04 PM EST): Check labs, stable on current meds Assessment & Plan (11/02/2023 3:09 PM EST): No changes in meds Abnormal gait10/27/2023Nausea and hxnjbzew79/24/2023hronic iibuqxus83/24/2023 Ulcer of right foot with fat layer zosrssw6608/07/2021 Overview (10/27/2023): Added automatically from request for surgery [id number] Ipwniuatrrvchd59/30/2021 Assessment & Plan (11/02/2023 3:09 PM EST): Cont statin Check labs Xmaoczqjci69/05/2014 Resolved Problems ProblemNoted DateDiagnosed DateResolved DateOpen wound of toe10/27/2023 01/06/2024harcot's joint of foot, left Overview (10/27/2023): Added automatically from request for surgery [id number] Wound, open, foot with complication, left, initial yapvyvnto03 Wgklra73hronic osteomyelitis of left foot with draining sinus iabetic ulcer of left midfoot associated with type 2 diabetes mellitus, with necrosis of boneOpen wound of foot excluding toes1/44339501/06/2024losed multiple fractures of hand bones Immunizations ImmunizationAdministration DatesNext KesCptl2701/04/2023 Family History Medical HistoryRelationNameCommentsHeart diseaseFatherHyperlipidemiaFather HypertensionFatherDiabetesMotherHyperlipidemiaMotherHypertensionMotherKidney diseaseMotherDiabetesSiblingsisterRelationNameStatusCommentsFatherOtherMother [...] friends or relatives?Never01/06/2024How often do you attend taoism or adventism services?Never4Do you belong to any clubs or organizations such as taoism groups, unions, fraternal or athletic groups, or school groups?Yes 01/06/2024How often do you attend meetings of the clubs or organizations you belong to?Never01/06/2024re you , , , , never , or living with a partner?Egxxlzqq95/15/2024UDIT-CAnswerDate Recorded Q1: How often do you have [...] heating?Not hard at all01/06/2024HQ-2AnswerDate RecordedPatient Health Questionnaire-2 Ejpez542[facility] [place] of Occupational Health - Occupational Stress QuestionnaireAnswerDate [...] steady place to sleep or slept in [place] for[place]ter (including now)?No01/06/2024Sex and Gender InformationValueDate RecordedSex Assigned at BirthNot on fileLegal JdgBmka2902/03/2023 7:39 PM EDT Gender IdentityNot on fileSexual OrientationNot on file Last Filed Vital Signs Vital SignReadingTime TakenCommentsBlood Wvzorgez270/78003/13/2024 8:25 AM EDT Dwjbs29004/22/2024 8:25 AM CPSUnquojajfsr37.4 ??C (97.5 ??F)03/13/2024 8:25 AM EDTRespiratory Fgbh805103/13/2024 8:25 AM EDTOxygen Tjijfutzfx71%03/13/2024 8:25 AM EDTInhaled Oxygen Concentration--Besgao415 kg (256 lb 12.8 oz)03/13/2024 8:25 AM PTDEjmxad578.1 cm (5' 10.5 )03/13/2024 8:25 AM EDTBody Mass Index36.33 03/13/2024 8:25 AM EDT Plan of Treatment Health MaintenanceDue DateLast DoneCommentsCT Itkodyurumrk1966Colonoscopy 1966Colorectal Cancer Vgukzpvgb1966FIT-DNA1966FIT1966 FOBT1966 7987Aceuzojiwfymv1966Pneumococcal Vaccine: Pediatrics (0 to 5 Years) and At-Risk Patients (6 to 64 Years) (1 of 2 - PCV)1985Diabetes: Retinopathy Hyhbkrxaf48/, 02/16/2023Medicare Annual Wellness (AWV)502/, 01/06/2024iabetes: Urine Protein Ddbtvprlm52/10/2025 05/01/2024, 05/01/2024, 05/01/2024, Additional history existsCOVID-19 Vaccine ( - season)2025Influenza Vaccine (#1)2025Diabetes: Hemoglobin A1C, 04/10/2025, 05/01/2024, Additional history exists Procedures Procedure NamePriorityDate/TimeAssociated DiagnosisCommentsMICROALBUMIN / CREATININE URINE PMJOULlysdyj00/10/2024 11:29 AM EDT HEMOGLOBIN L5PWxhgflz72/10/2024 11:29 AM EDT from Last 3 Months or Most Recently Relevant to Health Maintenance Results * Microalbumin / creatinine urine ratio (05/01/2024 11:29 AM EDT)ComponentValue Ref RangeTest MethodAnalysis TimePerformed AtPathologist Signature MICROALBUMIN, URINE1.80.0 - 1.9 mg/dLPROMEDICAURINE PUSCF405.90mg/dLPROMEDICA ALB/CREAT RATIO9.70.0 - 30.0 mg/g creatPROMEDICAComment:PERFORMED AT [facility] [address],[place], [place] [address]Wqhqhqco (Source) Anatomical Location / LateralityCollection Method / [...] in vivo glycation rates are affected. AVERAGE RZLBCWO799ly/dLPROMEDICAComment:PERFORMED AT [facility] [address],[place], [place] [address]Ogdpbwbn (Source)Anatomical Location / LateralityCollection Method / VolumeCollection TimeReceived Time05/01/2024 11:29 AM EDT05/01/2024 11:30 AM EDT Narrative Authorizing ProviderResult TypeResult StatusLisa Aichholz NPLAB BLOOD ORDERABLES Final ResultPerforming OrganizationAddressCity/State/ZIP CodePhone Number [place] from Last 3 Months or Most Recently Relevant to Health Maintenance Insurance Care Teams Team MemberRelationshipSpecialtyStart DateEnd Date Unallocated, Noms MD Kel[place] [address] [place] [address] PCP - GeneralFamily Medicine05/30/25
--- OUTSIDE RECORDS SUMMARY | 2025-09-28 10:03 | XMS_ITS | Clinical Summary ---
Author Organization [employer] tem Address [id number] [address] [place] [address] Care Team Providers Care Nail Galvanizer Name Role Phone Brendalauren Jessee Duran DO Primary Care Provider [phone] Allergies Active AllergyReactionsCriticalityNoted DateCommentsBee Venom Protein (Honey Bee)Other (See Comments)Zehjce7211/05/2020 Local swelling Medications MedicationSigDispense QuantityRefillsLast FilledStart DateEnd [...] INSTILL 1 DROP INTO LEFT EYE AT ARFFLBW16/07/2025Active BD VERO 2ND GEN PEN NEEDLE 32 gauge x 5/32 needle 1 Pen Needle by other route 3 (three) times a day.5Active blood-glucose meter kit Indications:Type 2 diabetes mellitus with foot ulcer, with long-term current use of insulin ([facility])Use as instructed 1 each 5Active doxycycline (MONODOX) 100 mg capsule TAKE 1 CAPSULE BY MOUTH TWICE DAILY FOR 14 DAYS5Active clopidogreL (PLAVIX) 75 mg tablet Take 1 tablet (75 mg total) by mouth.5Active collagenase (SantyL) ointment Indications:Ulcer of right foot with fat layer exposed ([facility])Apply 1 Application topically in the morning. 30 g 5Active blood sugar diagnostic (ACCU-CHEK GUIDE TEST STRIPS) strip Indications:Type 2 diabetes mellitus with foot ulcer, with long-term current use of insulin ([facility])1 strip by other route 3 (three) [...] hyperlipidemia due to type 2 diabetes mellitus ([facility])Take 1 tablet (500 mg total) by mouth nightly. 90 tablet 5Active lisinopriL (PRINIVIL,ZESTRIL) 10 mg tablet Indications:Benign essential HTN,Type 2 diabetes mellitus with foot ulcer, with long-term current use of insulin ([facility])Take 1 tablet (10 mg total) by mouth in the morning for 360 days. 90 tablet 509/6Active semaglutide (OZEMPIC) 0.25 mg or 0.5 mg (2 mg/3 mL) pen injector Indications:Type 2 diabetes mellitus with other circulatory complication, with long-term current use of insulin([facility])Inject 0.5 mg under the skin every 7 days. 2 mL 5Active insulin glargine (LANTUS SOLOSTAR U-100 INSULIN) 100 unit/mL (3 mL) insulin pen Indications:Type 2 diabetes mellitus with foot ulcer, with long-term current use of insulin ([facility])Inject 36 Units under the skin in the morning and at bedtime.5Active insulin aspart U-100 (NovoLOG) 100 unit/mL (3 mL) insulin pen Indications:Type 2 diabetes mellitus with foot ulcer, with long-term current use of insulin ([facility])Sliding scale with carb counting before meals three [...] ulcer, with long-term current use of insulin ([facility])38 units in the morning and 40 units at nighttime 10 mL Discontinued amoxicillin-pot clavulanate (AUGMENTIN) 875-125 mg per tablet Indications:Ulcer of right foot with fat layer exposed ([facility])Take 1 tablet by mouth in the morning and 1 tablet before bedtime. Do all this for 14 days. 28 tablet Expired Active Problems ProblemNoted DateDiagnosed DatePeripheral artery kxymrts7607/06/2025 Assessment & Plan (07/06/2025 2:46 PM EDT): Patient with moderate to severe peripheral artery disease based on studies from hospitalization earlier in June. Patient scheduled to have vascular procedure on 07/09. Improvement in vascular function will help with diabetic foot ulcer heal Chronic midline low back pain without iwexzpay58/06/2025 Assessment & Plan (05/10/2025 12:57 PM EDT): [...] lisinopril 10 mg daily. Fatty liver disease, hurvbuqwuqrc96/06/2025 Assessment & Plan (04/27/2025 9:13 PM EDT): Ordered lab work including comprehensive metabolic panel to evaluate for level of transaminase elevation Type 2 diabetes mellitus with pressure usqihb2204/11/2025Unstable ankle, right 04/11/2025History of transmetatarsal amputation of right foot03/28/2025Ulcer of right foot with fat layer avxkchs2908/07/2021 Overview (08/07/2021): Added automatically from request for surgery [id number] Osteomyelitis of left foot1Diabetes xrbozxzi42/30/2021 Assessment & Plan (07/06/2025 2:42 PM EDT): Patient diabetes is uncontrolled. Due to financial restrictions, he is unable to afford insulin which he uses to control blood sugar. Patient's last hemoglobin A1c from April 2025 was 11.5%. Discussed with patient the importance of blood sugar control. Since patient having difficulty affording the cost of medications we will refer patient to the [facility] medical management team fordiabetes to aid with [...] before meals. Monitor blood sugars before meals. Haqroplrdmoaes07/30/2021Charcot's joint of foot, left03/19/2021 Overview (03/19/2021): Added automatically from request for surgery [id number] Wound, open, foot with complication, left, initial /05/2021epsis 1Diabetic ulcer of right midfoot associated with type 2 diabetes mellitus, with muscle involvement without evidence of dqkwbuwe16/19/2021hronic osteomyelitis of left foot with draining sinus02/07/2021 Encounters DateTypeDepartmentCare BrkuAbsgakpkyih64/31/2025 8:30 AM EDTClinical Support [address] [phone] Jessee Molina DO Gastroesophageal reflux disease, unspecified whether esophagitis present (Primary Dx); Type 2 diabetes mellitus with foot ulcer, with long-term current use of insulin ([facility]); Benign essential HTN; Chronic midline low back pain without sciatica; Mixed hyperlipidemia due to type 2 diabetes mellitus ([facility])09/21/2025Travel 08/30/2025Telephone [facility] - Pharmacy Medication Management [address] [place] [place] [address] Brianna Ocasio MA 08/27/2025Telephone [facility] Medicine [address] [place] [phone] Jessee Molina DO 08/24/2025Telephone [address] [phone] Ana Marquez, [facility] 08/16/2025Telephone [facility] [address] [place] [phone] Ana Marquez, [facility] 08/13/2025 8:00 AM EDTClinical Support [facility] Medication Management [address] [facility] [place] [address] 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 ([facility]) [E11.628, L84] (Primary Dx)08/10/2025 10:00 AM EDTOffice Visit [facility] [address] [place] [phone] Jessee Molina, Type 2 diabetes mellitus with other circulatory complication, with long-term current use of insulin([facility]) (Primary Dx); Type 2 diabetes mellitus with foot ulcer, with long-term current use of insulin ([facility]); Benign essential HTN; Mixed hyperlipidemia due to type 2 diabetes mellitus ([facility]); Gastroesophageal reflux disease, unspecified whether esophagitis present; Chronic midline low back pain without sciatica; Ulcer of right foot with fat layer exposed ([facility])08/10/20254789Pcybkr09/26/[address] [facility] - Pharmacy Medication Management [address] [place] [place] [address] Medication Management, [facility] 07/17/2025Results Follow-Up [facility] [address] [place] [phone] Jessee Molina DO Lipid panel07/16/2025 8:00 AM EDTClinical Support [facility] - [facility] Medication Management [address] [place] [address] Type 2 diabetes mellitus with other circulatory complication, with long-term current use of insulin([facility]) (Primary Dx)07/16/20250258Snprlb65/15/2025[facility]phone [facility] [address] [place] [phone] Alma AnaDIVINA 07/05/2025 9:30 AM EDTOffice Visit [facility] [address] [place] [address] [place] [phone] Jessee Molina, Ulcer of right foot with fat layer exposed ([facility]) (Primary Dx); Type 2 diabetes mellitus with foot ulcer, with long-term current use of insulin ([facility]); Hyperlipidemia, unspecified hyperlipidemia type; Gastroesophageal reflux disease, unspecified whether esophagitis present; Peripheral artery fyccqpv5507/05/2025[facility] [address] [place] [address] [place] [address] Jessee Molina, Type 2 diabetes mellitus with foot ulcer, with long-term current use of insulin ([facility])07/05/2025[facility]ill [facility] [phone] Jessee Molina DO Ulcer of right foot with fat layer exposed ([facility])07/05/2025Telephone [facility] - Pharmacy Medication Management [address] [facility] [place] [place] [address] Medication Management, [facility] 07/05/2025Travelfrom Last 3 Months Immunizations No known immunizations [...] friends or relatives?Never02/07/2021How often do you attend samaritan or hinduism services?Never1Do you belong to any clubs or organizations such as samaritan groups, unions, fraternal or athletic groups, or school groups?No 02/07/2021How often do you attend meetings of the clubs or organizations you belong to?Never02/07/2021re you , , , , never , or living with a partner?Dmyvhigu35/19/2021Overall Financial Resource Strain (CARDIA)AnswerDate RecordedHow hard is it for you to pay for the very basics like food, housing, medical care, and heating?Not very hard02/07/2021 PHQ-2AnswerDate RecordedTotal Erqmn023Finacadia healthcare [place] of Occupational Health - Occupational Stress QuestionnaireAnswerDate RecordedDo you feel stress - tense, restless, nervous, or anxious, or unable to sleep at night because your mind is troubled all the time - these days?To some sagsov6102/07/2021xercise Vital SignAnswerDate RecordedOn average, how many days [...] on one occasion?Never09/21/2025hildcareAnswerDate 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 [...] InformationValueDate RecordedSex Assigned at BirthNot on fileLegal IwsYtkx4006/27/2015 11:23 AM EDTGender IdentityNot on fileSexual OrientationNot on file Last Filed Vital Signs Vital SignReadingTime TakenCommentsBlood Cfvvuleo736/7409/21/2025 8:28 AM EDT Mkeyt117809/21/2025 8:28 AM MVVApmzystxeqs43.5 ??C (97.7 ??F)09/21/2025 8:28 AM EDTRespiratory Nsbo158204/24/2025 9:00 AM EDTOxygen Youocgfjdq01%09/21/2025 8:28 AM EDTInhaled Oxygen Concentration--Rplclp842.9 kg (257 lb 12.8 oz)09/21/2025 8:28 AM ISQMynnlg982 cm (5' 8.5 )04/26/2025 2:12 PM EDTBody Mass Index38.62 04/26/2025 2:12 PM EDT Plan of Treatment DateTypeDepartmentCare Team (Latest Contact Info)Fkcausgzxlw13/02/2026 11:00 AM ESTClinical Support [facility] [address] [place] [address] [place] [address] Jessee Molina, DO [address] [place] [address], [address] [place] [address] Health MaintenanceDue DateLast DoneCommentsDiabetic Ophthalmology Exam1966 Adult BMI Follow Up Plan1984Zoster (Shingles) Vaccine (1 of 2)2016 Diabetic Foot Exam/, 02/07/2021Influenza Zwbtyad5007/23/2025 Statin Use: Suqqsimhzcawbs47/19/202609/Statin Use: Azgqmbvr34/19/2026 08/10/2025dult BMI Kbtjvcaqz36Depression Oveoafuee87/31/2026 09/21/2025Tobacco Myayhugjp71DTaP,Tdap and Td Vaccines (2 - Td or Tdap) Goals GoalPatient Goal TypeAssociated ProblemsRecent ProgressPatient-Stated?Author <enter goal here> Yulia Leon RN Note: Evaluation of progress towards goal: pr fpc facility Medical Devices ImplantedTypeAreaManufacturerDevice IdentifierShelf Expiration DateModel / Serial / LotCmnt Bn Bio 40gm Rpl [id number] - [id number] Implanted:Qty: 2 on 02/07/2021 by [facility] [employer] [id number] / / [id number] Iol Ultrasert 18.5d - [id number] - [id number] Implanted:Qty: 1 on 12/28/2019 by [facility]: [id number] 18.5 / [id number] / NAExplantedTypeAreaManufacturerDevice IdentifierShelf Expiration DateModel / Serial / LotPin Fx 9in 9/64in Stnm Ft 2 - [id number] Explanted:Qty: 4 on 04/18/2021 at [facility] [id number] / / Description: wilfrid pin from tray (smooth wilfrid pins double ended) Procedures Procedure NamePriorityDate/TimeAssociated DiagnosisCommentsPOCT HEMOGLOBIN A1C Jfqbtfr2409/21/2025 8:50 AM EDT Type 2 diabetes mellitus with foot ulcer, with long-term current use of insulin ([facility]) LIPID VFRKVGNYixbzyp74/25/2025 9:20 AM EDT Type 2 diabetes mellitus with foot ulcer, with long-term current use of insulin ([facility]) Hyperlipidemia, unspecified hyperlipidemia type from Last 3 Months Results * (ABNORMAL) POCT Hemoglobin A1c (09/21/2025 8:50 AM EDT)ComponentValueRef Range Test MethodAnalysis TimePerformed AtPathologist SignatureExternal Poct Hgb A1C 9.0(A)4 - 7 %MANUALLY TRANSCRIBED RESULTSADA Target < 8YesMANUALLY TRANSCRIBED RESULTSSpecimen (Source)Anatomical Location / LateralityCollection Method / VolumeCollection TimeReceived IgtnKvzfq71/31/2025 8:50 AM EDT Narrative Authorizing ProviderResult TypeResult StatusMicfelicia Molina DOPOINT OF CARE TEST ORDERABLESFinal ResultPerforming OrganizationAddressCity/State/ZIP CodePhone Number MANUALLY TRANSCRIBED RESULTS * (ABNORMAL) Lipid panel (07/16/2025 9:20 AM EDT)ComponentValueRef RangeTest MethodAnalysis TimePerformed AtPathologist XaiuzcqzfXAHAFQMSELW013434 - 200 mg/dL07/16/2025 3:26 PM [facility] UWPNXIRQMBDNYWWPFTOLAL069 (H)27 - 150 mg/dL07/16/2025 3:26 PM [facility] LABORATORYHDL NOBIXNMKVTC08(L)>39 mg/dL07/16/2025 3:26 PM [facility] LABORATORYComment: HDL <40 mg/dL - High Risk HDL > or = 40mg/dL- Desirable HDL >60 mg/dL - Negative Risk LDL (CALC)128<130 mg/dL07/16/2025 3:26 PM [facility] Comment: LDL <100 mg/dL - Desirable LDL >160 mg/dL - High Risk CHOLESTEROL:HDL5.8(H)1.0 - 5.008 3:26 PM [facility] LABORATORYVERY LOW LELCPKUPYXB94(H)0 - 30 mg/dL07/16/2025 3:26 PM [facility] LABORATORYSpecimen (Source)Anatomical Location / Laterality Collection Method / VolumeCollection TimeReceived TimeBloodVenous blood / UnknownVenipuncture / Pkfyhax1607/16/2025 9:20 AM EDT07/16/2025 9:20 AM EDT Narrative Authorizing ProviderResult TypeResult StatusMicfelicia Molina DOLAB BLOOD ORDERABLESFinal ResultPerforming OrganizationAddressCity/State/ZIP CodePhone Number [facility] [address] [place] [address], from Last 3 Months Insurance * Guarantor: [facility]Account TypeRelation to PatientDate of PhoneBilling AddressCorporateOther [address] [place] [address] Advance Directives * Full Code (Latest Code Status on File) Date ActivatedDate InactivatedComments04/17/2021 12:59 PM04/21/2021 5:08 PM * Full Code Date ActivatedDate InactivatedComments02/07/2021 2:54 AM02/13/2021 1:11 AM Care Teams Team MemberRelationshipSpecialtyStart DateEnd Date Jessee Molina, DO [address] [facility], [facility] [address] [place] [address] [facility] Medicine04/26/25
--- OUTSIDE RECORDS SUMMARY | 2025-09-28 10:03 | XMS_ITS | Encounter Summary ---
Author Organization [employer] [facility] tem Address [id number] [place] [address] Care Team Providers Care Dial Brusher Name Role Phone BrendaJessee aguilar Roger SCHWARZ Primary Care Provider Encounter Details DateTypeDepartmentCare Team (Latest Contact Info)Kficqkmcwkr67/31/2025Travel Social History Tobacco UseTypesPacks/DayYears UsedDateSmoking Tobacco: NeverSmokeless Tobacco: NeverAlcohol UseStandard Drinks/WeekCommentsNot Currently0 (1 standard drink = 0.6 oz pure alcohol)quit 2006Social Connection and Isolation PanelAnswerDate RecordedIn a typical week, how many times do you talk on the phone with family, friends, or neighbors?Twice a week02/07/2021How often do you get together with friends or relatives?Never02/07/2021How often do you attend sikh or jainism services?Never1Do you belong to any clubs or organizations such as sikh groups, unions, fraternal or athletic groups, or school groups?No 02/07/2021How often do you attend meetings of the clubs or organizations you belong to?Never02/07/2021re you , , , , never , or living with a partner?Mlykplse27/19/2021Overall Financial Resource Strain (CARDIA)AnswerDate RecordedHow hard is it for you to pay for the very basics like food, housing, medical care, and heating?Not very hard02/07/2021 PHQ-2AnswerDate RecordedTotal Acipq591[facility] [place] [facility] - Occupational Stress QuestionnaireAnswerDate RecordedDo you feel stress - tense, restless, nervous, or anxious, or unable to sleep at night because your mind is troubled all the time - these days?To some vwknme2002/07/2021xercise Vital SignAnswerDate RecordedOn average, how many days [...] one occasion?Never09/21/2025hildcareAnswerDate RecordedDo problems 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 Patient does not drink09/21/2025 8:28 AM Danielle Lopez CNAQ3: How often do you have six or more drinks on one occasion?Never09/21/2025 8:28 AM Daneille Lopez CNA documented as of this encounter Plan of Treatment DateTypeDepartmentCare Team (Latest Contact Info)Wrezykfgxkd72/02/2026 11:00 AM ESTClinical Support [facility] [address] [place], [place] [id number] Jessee Molina DO [address] [facility], [place] [address] documented as of this encounter Goals GoalPatient Goal TypeAssociated ProblemsRecent ProgressPatient-Stated?Author <enter goal here> Yulia Leon RN Note: Evaluation of progress towards goal: md custodial facility documented as of this encounter Visit Diagnoses Not on filedocumented in this encounter Additional Health Concerns AssessmentNoted TimePHQ-9 Depression Total Score: 8:28 AM EDT documented as of this encounter Care Teams Team MemberRelationshipSpecialtyStart DateEnd Date Jessee Molina DO [address] [facility], [place] [address] PCP - GeneralFamily Medicine04/26/25documented as of this encounter
--- OUTSIDE RECORDS SUMMARY | 2025-09-28 10:08 | XMS_ITS | CCD ---
Author Organization [facility] Care Team Providers Care Robotic Maintenance Technician Name Role Phone JAVI FIGUEROA Admitting Unavailable JAVI FIGUEROA Attending Unavailable JAVI FIGUEROA Referring Unavailable SELF, REFERRED Primary Care Unavailable PHU BUCK Attending Unavailable CHENG STAPLES Primary Care Unavailable Cheng Staples Primary Care Provider [phone] SYSTEM, PROVIDER NOT IN Referring Unavaila FLAKO [...] Unavailable Iva Black Unavailable MapusSebastián Unavailable Bel WEIGHT CLERK, Cheng Unavailable Jonny Zhu MD Primary Care Provider [phone] Bel WEIGHT CLERK, Cheng Unavailable Cheng Staples Primary Care Provider [phone] Cheng Staples Attending Provider Cheng Staples Primary Care Provider MD Karrie Imnew Attending Provider CHENG STAPLES Attending Unavailable CHENG STAPLES Attending Unavailable CHENG STAPLES Attending Unavailable Cheng Staples Primary Care Provider MD Tracy Yoon Attending Provider Unavailable Primary Care Provider Unavailke Staples 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-Cheng LINDSEY Primary Care Provider ART FIGUEREDO Referring Unavailable Art Freeman DO Primary Care Provider ART FIGUEREDO Attending Unavailable ASAAD, IMAD Referring Unavailable JEROME DEL TORO Attending Unavailable ASAAD, IMAD Referring Unavailable COURTNEY GLOVER Attending Unavailable FIGUEREDO, ART S Referring Unavailable DAVIDA PRICE Attending Unavailable ASAAD, IMAD Referring Unavailable Aichholz, Cheng J Primary Care Provider [phone] Ashley EPSTEIN-CCathy Attending Provider Chan Quintanilla MD Attending Provider NON STAFF Primary Care Provider Unavailabl e NO PCP, NO PCP Primary Care Unavailable CAM CLIFFORD Attending Unavailable SHERRI GARCIA Attending Unavailable AICHHOLZ, CHENG Dasilva Referring Unavailable AICHHOLZ, CHENG J Primary Care Unavailable SHERRI GARCIA Attending Unavailable AICHHOLZ, CHENG J Referring Unavailable AICHHOLZ, CHENG J Primary Care Unavailable SHERRI GARCIA Attending Unavailable CALIXTOHHOLZ, CHENG J Referring Unavailable AICHHOLZ, CHENG J [...] BADIK, ART D Primary Care Unavailable Aichholz WEIGHT CLERK-CCheng Primary Care Provider [phone] Cathy Hathaway Attending Provider [phone] Chan Quintanilla MD Other Provider [phone] Chan Quintanilla Attending Unavailabl Chan Epperson Admitting Unavailabl e NON STAFF Primary Care Unavailable Cathy Leggett Attending Unavailable Cathy Leggett Admitting Unavailable NON STAFF Primary Care Unavailable Chan Quintanilla Attending Unavailabl e Chan Quintanilla Admitting Unavailabl e Aichjesi, Cheng Dasilva Primary Care Unavailable PETE, ART D Attending Unavailable CHENG STAPLES Referring Unavailable BADIK, ART D Primary Care Unavailable BADIK, ART D Attending Unavailable BADIK, ART D Referring Unavailable ART FREEMAN Primary Care Unavailable ART FREEMAN Attending Unavailable ART FREEMAN Referring Unavailable ART FREEMAN Primary Care Unavailable ART FREEMAN Attending Unavailable ART FREEMAN Referring Unavailable ART FREEMAN Primary Care Unavailable ART FREEMAN Attending Unavailable ART FREEMAN Referring Unavailable ART FREEMAN Primary Care Unavailable Allergies Allergy ClassificationReported Allergen(s)Allergy TypeDate of OnsetReaction(s) Facility (1 source)Allergic rhinitis due to pollen; Translations: [hayfever]Propensity to adverse reactions (disorder)54-52-4960Gfl [facility] (1 source)bee venomDrug allergy (disorder)[facility] (1 source)Honey bee venomPropensity to adverse klurjtkvb59-42-9050NzjnptzrOLFY [facility] (1 source)Bee pollenAllergy to krkorepne93-72-8262Ytqrmws [facility] (20 sources)bee venom protein (honey bee); Translations: [BEE VENOM PROTEIN (HONEY BEE)]Allergy to -08-7889Semad (See Comments)[facility] (8 sources)Venom-Honey Bee; Translations: [VENOM-HONEY BEE]Drug Allergy 82-43-6816Iwggzvueezr, Other: See Comments, [facility] Medications Current Medications MedicationDrug Class(es)DatesSig (Normalized)Sig (Original)amitriptyline hydrochloride 25 mg oral tablet (1 source)Tricyclic AntidepressantStart: 23-20-3134jofc 1 tablet by mouth every twenty-four hoursAmitriptyline HCl 25 MG 1 tablet at bedtime Orally Once a day for 30 days Nov, Activeamoxicillin 875 mg / clavulanate 125 mg oral tablet (15 sources)Penicillin-class AntibacterialStart: 08-27-2025 End: 14-63-0644dayw 1 tablet by mouth once in the morningamoxicillin-pot clavulanate (AUGMENTIN) 875-125 mg per tablet Indications: Ulcer of right foot withfat layer exposed (CMS-HCC) Take 1 tablet by mouth in the morning and 1 tablet before bedtime. Do all this for 14 days. 28 tablet 08/27/2025 09/10/2025 ActiveStart: 08-10-2025 End: 86-45-6587arsv 1 tablet by mouth once in the morningamoxicillin-pot clavulanate (AUGMENTIN) 875-125 mg per tablet Indications: Ulcer of right foot withfat layer exposed (CMS-HCC) , Type 2 diabetes mellitus with other circulatory complication, with long-term current use of insulin (CMS-HCC) Take 1 tablet by mouth in the morning and 1 tablet before bedtime. Do all this for 14 days. 28 tablet 08/10/2025 08/24/2025 ActiveStart: 07-09-2025 End: 35-91-1804nkzu 1 tablet by mouth once dailyAmoxicillin-Pot Clavulanate 875- 125 mg tablet Discontinued 1 TAB PO Daily July 09, 2025 12:00amOct2024 10:44amStart: 06-22-2025 End: 32-44-8283jbra 1 tablet by mouth twice dailyamoxicillin-pot clavulanate (AUGMENTIN) 875-125 mg per tablet TAKE 1 TABLET BY MOUTH TWICE DAILY FOR 14 DAYS 06/22/2025 07/16/2025 Discontinued (Therapy completed)Start: 04-11-2025 End: 95-95-9960pwlz 1 tablet by mouth once in the morningamoxicillin-pot clavulanate (AUGMENTIN) 875-125 mg per tablet Indications: Diabetic ulcer of right midfoot associated with type 2 diabetes mellitus, with muscle involvement without evidence of necrosis (CMS-HCC) Take 1 tablet by mouth in the morning and 1 tablet before bedtime. Do all this for 10 days. 20 tablet 04/11/2025 04/21/2025 ActiveStart: 03-28-2025 End: 76-16-0561ykfv 1 tablet by mouth once in the morningamoxicillin-pot clavulanate (AUGMENTIN) 875-125 mg per tablet Indications: Diabetic ulcer of right midfoot associated with type 2 diabetes mellitus, with muscle involvement without evidence of necrosis (CMS-HCC) Take 1 tablet by mouth in the morning and 1 tablet before bedtime. Do all this for 10 days. 20 tablet 03/28/2025 04/07/2025 Activeaspirin 81 mg oral tablet (5 sources)Platelet Aggregation Inhibitor, Nonsteroidal Anti-inflammatory Drug Start: 86-59-7303hbeo 1 tablet by mouth once dailyAspirin 81 mg tablet Active 81 MG PO Daily 90 90 2 June 28, 2025 12:00am Complies with drug therapy atorvastatin 80 mg oral tablet (20 sources)HMG-CoA Reductase InhibitorStart: 08-10-2025 End: 95-94-0092tpcx 1 tablet by mouth once daily at breakfastatorvastatin (LIPITOR) 80 mg tablet Indications: hyperlipidemia Take 1 tablet (80 mg total) by mouth daily with breakfast for 360 days Indications: excessive fat in the blood. 90 tablet 3 08/10/2025 08/05/2026 ActiveStart: 01-18-2020 End: 28-01-0367pwik 1 tablet by mouth once dailyAtorvastatin 40 mg tablet Discontinued 40 MG PO Daily January 18, 2020 1:00am September 120:44am Lipitor Activeblood-glucose meter kit (15 sources)Start: 82-35-9399zcyqm-glucose meter kit Indications: Type 2 diabetes mellitus with foot ulcer, with long-term current use of insulin ([facility]) Use as instructed 1 each 05/16/2025 Activecelecoxib 100 mg oral capsule (20 sources)Nonsteroidal Anti-inflammatory DrugStart: 05-10-2025 End: 04-96-8486swui 1 capsule by mouth in the morningcelecoxib (CeleBREX) 100 mg capsule Indications: Chronic midline low back pain without sciatica Take 1 capsule (100 mg total) by mouth in the morning. 30 capsule 2 08/10/2025 Active cephalexin 500 mg oral capsule (2 sources)Cephalosporin AntibacterialStart: 01-09-2021 End: 41-70-7265uobe 1 capsule by mouth three times dailycephALEXin (KEFLEX) 500 MG capsule Take 1 (one) capsule (500 mg total) by mouth 3 (three) times a day for 14 days . 42 capsule 0 01/09/2021 01/23/2021 Activecholecalciferol 0.125 mg oral capsule (20 sources)Vitamin DStart: 22-20-0541uset 1 capsule by mouth once daily Cholecalciferol (Vitamin D3) 125 mcg (5,000 unit) capsule Active 125 MCG PO Daily February 02, 2024 12:00am Complies with drug therapyStart: 93-86-2494cavd 1 capsule by mouth in the morningcholecalciferol (Vitamin D-3) 25 MCG (1000 UT) capsule Take 1,000 Units by mouth in the morning. 0 01/04/2023 Activetake 1 capsule by mouth in the morningcholecalciferol, vitamin D3, 2,000 units capsule Take 1 capsule (2,000 Units total) by mouth in themorning. Activeclopidogrel 75 mg oral tablet (18 sources)P2Y12 Platelet InhibitorStart: 28-62-7933mywhayrhytV (PLAVIX) 75 mg tablet Take 1 tablet (75 mg total) by mouth. 06/29/2025 Activecollagenase 0.25 unt/mg topical ointment (13 sources)Collagen-specific EnzymeStart: 45-69-1037ranhnrnokxc (SantyL) ointment Indications: Ulcer of right foot with fat layer exposed (CMS-HCC) Apply 1 Application topically in the morning. 30 g 07/05/2025 Activedorzolamide 20 mg/ml ophthalmic solution (20 sources)Carbonic Anhydrase Inhibitortake 1 drop(s) into the eye(s) in the morningdorzolamide (TRUSOPT) 2 % ophthalmic solution Indications: ocular hypertension Administer 1 drop tothe right eye in the morning and 1 drop before bedtime. Indications: increased pressure in the eye.Activedoxycycline monohydrate 100 mg oral capsule (16 sources)Tetracycline-class DrugStart: 69-04-7972vurc 1 capsule by mouth twice dailydoxycycline (MONODOX) 100 mg capsule TAKE 1 CAPSULE BY MOUTH TWICE DAILY FOR 14 DAYS 06/22/2025 ActiveDULoxetine 30 mg delayed release oral capsule (1 source)Serotonin and Norepinephrine Reuptake Inhibitortake 1 capsule by mouth in the morningDULoxetine (Cymbalta) [address] capsule Take 30 mg by mouth in the morning. 0 Activegabapentin 100 mg oral capsule (1 source)Anti-epileptic Agenttake 1 capsule by mouth in the morninggabapentin (Neurontin) 100 MG capsule Take 100 mg by mouth in the morning. 0 Active hydroCHLOROthiazide 12.5 mg oral tablet (20 sources)Thiazide DiureticStart: 06-19-2021 End: 89-05-9330zgih 1 tablet by mouth once dailyhydroCHLOROthiazide (HYDRODIURIL) 12.5 mg tablet Indications: Benign essential HTN Take 1 tablet (12 .5 mg total) by mouth daily. 90 tablet 08/10/2025 Active3 ml insulin glargine 100 unt/ml pen injector (20 sources)Insulin AnalogStart: 89-16-2632fajfbhj glargine (LANTUS SOLOSTAR U- 100 INSULIN) 100 unit/mL (3 mL) insulin pen Indications: Type 2diabetes mellitus with foot ulcer, with long-term current use of insulin ([facility]) Inject 36 Units under the skin in the morning and at bedtime. 09/21/2025 ActiveStart: 08-10-2025 End: 50-71-4020rvxpyk 36 [IU] by subcutaneous injection in the morninginsulin glargine (LANTUS SOLOSTAR U-100 INSULIN) 100 unit/mL (3 mL) insulin pen Indications: Type 2diabetes mellitus with foot ulcer, with long-term current use of insulin ([facility]) Inject 36 Units under the skin in the morning and 36 Units before bedtime. 66 mL 1 08/10/2025 08/10/2025 Discontinued (Patient Never Started This Medication)Start: 05-10-2025 End: 54-79-7255vvdecr 30 [IU] by subcutaneous injection in the morninginsulin glargine (LANTUS SOLOSTAR U-100 INSULIN) 100 unit/mL (3 mL) insulin pen Indications: Type 2diabetes mellitus with foot ulcer, with long-term current use of insulin ([facility]) Inject 30 Units under the skin in the morning and 30 Units before bedtime. 18 mL 1 05/10/2025 08/10/2025 Discontinued (Reorder)Start: 04-26-2025 End: 54-92-8324kzluat 0.3 mL by subcutaneous injection once dailyinsulin glargine (LANTUS) 100 unit/mL injection Indications: Type 2 diabetes mellitus with foot ulcer, with long-term current use of insulin ([facility]) Inject 0.3 mL (30 Units total) under the skin nightly. 10 mL 1 04/26/2025 05/10/2025 DiscontinuedStart: 11-20-2020 End: 69-61-5391vhadrt 25 [IU] by subcutaneous injection once dailyinsulin glargine (LANTUS) 100 unit/mL injection Inject 25 (twenty five) Units under the skin nightly . 7.5 mL 0 11/20/2020 ActiveStart: 11-12-2020 End: 86-07-0332zvbbqkn glargine (LANTUS) injection 25 UnitsStart: 11-11-2020 End: 92-82-1660ecrhcaw glargine (LANTUS) injection 22 UnitsStart: 2020 End: 17-91-3619dukswzy glargine (LANTUS) injection 25 UnitsStart: 11-09-2020 End: 73-53-0004hjijglw glargine (LANTUS) injection 32 UnitsStart: 11-07-2020 End: 80-03-5711qtyznms glargine (LANTUS) injection 35 UnitsStart: 11-06-2020 End: 38-13-5177dhmkroq glargine (LANTUS) injection 25 UnitsStart: 01-18-2020 End: 51-89-9036ptpndg 28 [IU] by subcutaneous injection once daily at bedtime Insulin Glargine (Lantus U-100 Insulin) 100 unit/mL Solution Discontinued 28 UNIT SUBCUT Daily at bedtime January 18, 2020 1:00am May 09, 2024 2:20pm Start: 01-18-2020 End: 59-89-7016vvrnik 38 [IU] by subcutaneous injection once daily in the morningInsulin Glargine 100 unit/mL (3 mL) insulin pen Discontinued 38 UNIT SUBCUT Every morning January 18, 2020 1:00am January 07, 2024 12:05pm End: 36-26-0371jvwkpy 0.28 mL by subcutaneous injection once dailyinsulin glargine (LANTUS) 100 unit/mL injection Inject 0.28 mL (28 Units total) under the skin nightly. 04/26/2025 Discontinued (Reorder)inject 38 [IU] by subcutaneous injection in the morning, then inject 28 [IU] by subcutaneous injection twice daily in the eveningLantus SoloStar 100 UNIT/ML 38 units in am and 28 units in pm Subcutaneous twice a day ActiveLantus Active End: 00-32-8744mjgvbp 38 [IU] by subcutaneous injection once daily in the morninginsulin glargine (LANTUS) 100 unit/mL injection Inject 38 Units under the skin daily AM . 0 11/21/2020 Discontinued (Stop Taking at Discharge) End: 95-56-5794hsugcx 32 [IU] by subcutaneous injection once daily at bedtime insulin glargine (LANTUS) 100 unit/mL injection Inject 32 Units under the skin nightly HS . 0 11/21/2020 Discontinued (Stop Taking at Discharge)insulin regular, human (NOVOLIN R INJECTION) (2 sources)insulin regular, human (NOVOLIN R INJECTION) by INJECTION(UNSPECIFIED PARENTERAL ROUTES) route. Active3 ml insulin aspart, human 100 unt/ml pen injector (20 sources)Insulin AnalogStart: 20-65-6700vdimjam aspart U-100 (NovoLOG) 100 unit/mL (3 mL) insulin pen Indications: Type 2 diabetes mellituswith foot ulcer, with long-term current use of insulin ([facility]) Sliding scale with carb counting before meals three times per day. Max dose 30 units per day 09/21/2025 ActiveStart: 05-10-2025 End: 20-88-5528kdqngnn aspart U-100 (NovoLOG Flexpen U-100 Insulin) 100 unit/mL (3 mL) insulin pen Indications: Type 2 diabetes mellitus with foot ulcer, with long-term current use of insulin ([facility]) Sliding scale with pre meal blood sugars three times per day ( max dose 36 units/day) 15 mL 1 05/10/2025 08/10/20 25 Discontinued (Therapy completed)Start: 01-18-2020 End: 57-98-6460Lspvymk Aspart U-100 (Novolog Flexpen U-100 Insulin) 100 unit/mL (3 mL) Insulin Pen Discontinued 0 UNIT SUBCUT As Directed January 18, 2020 1:00am May 09, 2024 2:20pm per sliding scale End: 31-00-2938tagjfla aspart U-100 (NovoLOG) 100 unit/mL injection Inject under the skin. 04/26/2025 Discontinuedinsulin aspart (NovoLOG FLEXPEN) 100 UNIT/ML pen (If FSB 150-200; take 4 units,; 201-250, 6 UNITS,;251-300, 8 UNITS; 301-350, 10 UNITS; 350-401, 12 UNITS; Max: 40 units/day) 0 ActiveNovoLOG FlexPen 100 UNIT/ML 18 units with meals Subcutaneous twice a day ActiveNovoLOG Active End: 37-75-0803cevjylk aspart U-100 (NovoLOG) 100 unit/mL injection Inject under the skin 3 (three) times a day before meals Sliding scale, patient unsure of doses. . 0 11/21/2020 Discontinued (Stop Taking at Discharge)ketorolac tromethamine 5 mg/ml ophthalmic solution (8 sources)Nonsteroidal Anti-inflammatory Drug, Cyclooxygenase Inhibitor ketorolac (Acular) 0.5 % ophthalmic solution Administer 1 drop into both eyes in the morning and 1 drop at noon and 1 drop in the evening and 1 drop before bedtime. 0 Activetake 1 drop(s) into the eye(s) four times daily as needed Ketorolac Tromethamine 0.5 % 1 drop into affected eye as needed Ophthalmic Four times a day Activetake 1 drop(s) into the eye(s) four times daily as needed Ketorolac Tromethamine 0.5 % 1 drop into affected eye as needed Ophthalmic Four times a day Activelatanoprost 0.05 mg/ml ophthalmic solution (20 sources)Prostaglandin AnalogStart: 14-49-5169zcox 1 drop(s) into the eye(s) once daily at bedtimelatanoprost (XALATAN) 0.005 % ophthalmic solution Administer 1 drop into the left eye once daily atbedtime. INSTILL 1 DROP INTO LEFT EYE AT BEDTIME 03/28/2025 ActiveStart: 25-28-3825hdbf 1 drop(s) into the eye(s) once daily in the eveningLatanoprost Active 1 DROPS EYE-BOTH Daily February 02, 2024 12:00am FreeTextSi drop into affected eye in the evening Ophthalmic Once a day; Note: Source Status: Taking; Provider: Dora German (N PI: [id number])take 1 drop(s) into the eye(s) once daily in the evening Latanoprost 0.005 % 1 drop into affected eye in the evening Ophthalmic Once a day Activelisinopril 10 mg oral tablet (20 sources)Angiotensin Converting Enzyme InhibitorStart: 01-18-2020 End: 92-32-3282lvqc 1 tablet by mouth in the morninglisinopriL (PRINIVIL,ZESTRIL) 10 mg tablet Indications: Benign essential HTN , Type 2 diabetes mellitus with foot ulcer, with long-term current use of insulin ([facility]) Take 1 tablet (10 mg total) bymouth in the morning for 360 days. 90 tablet 3 08/10/2025 08/05/2026 ActiveLisinopril ActiveNetarsudil-Latanoprost (ROCKLATAN OP) (1 source)take 1 drop(s) into the eye(s) at bedtimeNetarsudil-Latanoprost (ROCKLATAN OP) Administer 1 drop into affected eye(s) at bedtime 0 Jlkumf43 hr niacin 500 mg extended release oral tablet (7 sources)Nicotinic AcidStart: 86-75-4627zkch 1 tablet by mouth once daily niacin (NIASPAN) 500 mg CR tablet Indications: Mixed hyperlipidemia due to type 2 diabetes mellitus(CMS-HCC) Take 1 tablet (500 mg total) by mouth nightly. 90 tablet 1 08/10/2025 Activesemaglutide (OZEMPIC) 0.25 mg or 0.5 mg (2 mg/3 mL) pen injector (11 sources)Start: 22-70-5384mbumbbkywvb (OZEMPIC) 0.25 mg or 0.5 mg (2 mg/3 mL) pen injector Indications: Type 2 diabetes mellitus with other circulatory complication, with long-term current use of insulin ([facility]) Inject 0.5 mg under the skin every 7 days. 2 mL 08/10/2025 ActiveStart: 07-16-2025 End: 11-08-1492gpptzgbvtwv (OZEMPIC) 0.25 mg or 0.5 mg (2 mg/3 mL) pen injector Indications: Type 2 diabetes mellitus with other circulatory complication, with long-term current use of insulin ([facility]) Inject 0.25mg under the skin every 7 days. 2 mL 07/16/2025 08/10/2025 Discontinued (Reorder)Start: 07-16-2025 semaglutide (OZEMPIC) 0.25 mg or 0.5 mg (2 mg/3 mL) pen injector Indications: Type 2 diabetes mellitus with other circulatory complication, with long-term current use of insulin ([facility]) Inject 0.25mg under the skin every 7 days. 2 mL 07/16/2025 Activesucralfate 1000 mg oral tablet (2 sources)Aluminum ComplexStart: 04-10-2025 End: 62-76-6760rddd 1 tablet by mouth twice dailysucralfate (CARAFATE) 1 gram tablet Indications: Diabetic gastroparesis (HCC) Take 1 tablet by mouth two times a day. Start taking medication after procedure for 4 weeks. 60 tablet 04/10/2025 05/10/2025 Activevonoprazan (VOQUEZNA) 10 mg tablet (1 source)Start: 09-21-2025 End: 35-96-4059ebyy 1 tablet by mouth in the morningvonoprazan (VOQUEZNA) 10 mg tablet Indications: Gastroesophageal reflux disease, unspecified whether esophagitis present Take 10 mg by mouth in the morning for 30 days. 30 tablet 09/21/2025 10/21/2025 Active Completed/Discontinued Medications MedicationDrug Class(es)DatesSig (Normalized)Sig (Original)acetaminophen 325 mg oral tablet (6 sources)Start: 11-06-2020 End: 39-52-9411wxgs 1 tablet by mouth every six hours as neededacetaminophen (TYLENOL) tablet 650 mg End: 17-16-7576uxfg 2 tablets by mouth every six hours as needed for headache acetaminophen (TYLENOL) 500 mg tablet Indications: headache disorder Take 2 tablets (1,000 mg total) by mouth every 6 (six) hours as needed Indications: headache. 04/26/2025 Discontinuedacetaminophen 325 mg / oxyCODONE hydrochloride 5 mg oral tablet (1 source)Opioid AgonistStart: 11-07-2020 End: 25-88-2515nixb 1 tablet by mouth every four hours as neededoxyCODONE- acetaminophen (PERCOCET) 5-325 mg per tablet 1 tabletalbuterol 0.833 mg/ml / ipratropium bromide 0.167 mg/ml inhalant solution (1 source)Anticholinergic, beta2-Adrenergic AgonistStart: 11-05-2020 End: 14-14-8248pdha 3 mL by inhalation every two hours as needed3 mL, Inhalation, Every 2 hour PRN (RT), wheezing, shortness of breath, Starting Wed11/05/20 at 1920alteplase (CATH BERTHA) injection 2 mg (1 source)Start: 11-19-2020 End: 96-12-9486zylqtqkde (CATH BERTHA) injection 2 mgcalcium chloride 0.0014 meq/ml / potassium chloride 0.004 meq/ml / sodium chloride 0.103 meq/ml / sodium lactate 0.028 meq/ml injectable solution (3 sources)Start: 11-11-2020 End: 23-21-4149rjdc 100 mL intravenous route every kezx486 mL/hr, Intravenous, Continuous, Starting 11/11/20 at 1800, PACU (only)Start: 11-05-2020 End: 20-25-9341imxkydcs Ringers infusionceFAZolin 1000 mg injection (14 sources)Cephalosporin AntibacterialStart: 12-11-2020 End: 55-27-4491wbXKFgiqi (ANCEF) 200 mg/ml injectionStart: 11-19-2020 End: 94-03-4471ntjn 2000 mg intravenous route every eight hoursceFAZolin 2,000 mg IV (Outpatient Therapy) Indications: Osteomyelitis, Charcot's foot, tunneling wound Infuse 2 (two) g (2,000 mg total) into a venous catheter every 8 (eight) hours End: 12/19/20 180vial 0 11/19/2020 12/19/2020 ActiveStart: 11-07-2020 End: 31-10-1102pgdh 2000 mg intravenous route every eight hoursceFAZolin (ANCEF) IVPB 2 g (premix)Clotrimazole (5 sources)Azole AntifungalClotrimazole Not-TakingClotrimazole ActiveDorzolamide HCl-Timolol Mal (5 sources)Dorzolamide HCl-Timolol Mal Not-TakingDorzolamide HCl-Timolol Mal Activefamotidine 40 mg oral tablet (20 sources)Histamine-2 Receptor AntagonistStart: 07-05-2025 End: 67-27-0983snbs 1 tablet by mouth in the morning, then take 1 tablet by mouth at bedtimefamotidine (PEPCID) 40 mg tablet Indications: Gastroesophageal reflux disease, unspecified whether esophagitis present Take 1 tablet (40 mg total) by mouth in the morning and 1 tablet (40 mg total) before bedtime. 60 tablet 2 07/05/2025 09/21/2025 Discontinued (Alternate therapy)Start: 05-09-2024 take 1 tablet by mouth once dailyFamotidine 20 mg tablet Active 20 MG PO Daily May 09, 2024 12:00am FreeTextSi tablet Orally Once a day; Note: Source Status: Taking; Provider: Dora German ( ) Complies with drug therapyStart: 08-25-2023 End: 40-43-0419fymiuawlkr (PEPCID) 40 mg tablet Take 40 mg by mouth. 01/07/2024 ActiveStart: 58-27-6657srwt 1 tablet by mouth in the morningfamotidine (Pepcid) 20 MG tablet Take 20 mg by mouth in the morning. 0 03/05/2023 Ihyqkx77 ml glucose 500 mg/ml prefilled syringe (1 source)Start: 2020 End: 12-09-5207ykoidwsm 50 % in water (D50W) syringe 50 mLStart: 2020 End: 48-74-9032iweufhzx 50 % in water (D50W) syringe 50 mL1 ml heparin sodium, porcine 5000 unt/ml injection (3 sources)Unfractionated Heparin, Anti-coagulantStart: 11-08-2020 End: 77-88-2761cjvputi (porcine) injection 5,000 UnitsStart: 11-05-2020 End: 70-11-1414lajzou 5000 [IU] by subcutaneous injection every eight hours5,000 Units, Subcutaneous, Every 8 hours scheduled, First dose on Wed11/05/20 at 2200 Notify physician if patient refuses.1 ml HYDROmorphone hydrochloride 1 mg/ml injection (1 source)Opioid AgonistStart: 11-08-2020 End: 82-49-9049DOTLXzljslbma (DILAUDID) injection 1 mgStart: 11-08-2020 End: 39-22-4418DTYPAqcgcyvhk (DILAUDID) injection 1 mgInsulin Aspart U-100 (Novolog Flexpen U-100 Insulin) 100 unit/mL (3 mL) Insulin Pen (3 sources)Start: 01-18-2020 End: 41-12-2008Iigleje Aspart U-100 (Novolog Flexpen U-100 Insulin) 100 unit/mL (3 mL) Insulin Pen Discontinued 0 UNIT SUBCUT As Directed January 18, 2020 1:00am May 09, 2024 2:20pm per sliding scaleStart: 78-61-0829Ymqvpgj Aspart U-100 (Novolog Flexpen U-100 Insulin) 100 unit/mL (3 mL) Insulin Pen Active 0 UNIT SUBCUT As Directed January 18, 2020 1:00am per sliding scaleInsulin Glargine (Lantus U-100 Insulin) 100 unit/mL Solution (3 sources)Start: 01-18-2020 End: 05-37-8149mgwcea 28 [IU] by subcutaneous injection once daily at bedtime Insulin Glargine (Lantus U-100 Insulin) 100 unit/mL Solution Discontinued 28 UNIT SUBCUT Daily at bedtime January 18, 2020 1:00am May 09, 2024 2:20pm Start: 44-41-0724zxihjs 28 [IU] by subcutaneous injection once daily at bedtime Insulin Glargine (Lantus U-100 Insulin) 100 unit/mL Solution Active 28 UNIT SUBCUT Daily at bedtimeFebr2019 1:00aminsulin isophane, human 100 unt/ml injectable suspension (13 sources)Start: 07-09-2025 End: 88-33-6662svcnzps NPH (HumuLIN N,NovoLIN N) 100 unit/mL injection Indications: Type 2 diabetes mellitus with foot ulcer, with long-term current use of insulin ([facility]) 38 units in the morning and 40 units at nighttime 10 mL 3 08/10/2025 09/21/2025 DiscontinuedStart: 14-12-9837Drqhtjz Nph Isoph U-100 Human (Novolin N Nph U-100 Insulin) 100 unit/mL suspension Active 38 UNIT SUBCUT Bedtime July 09, 2025 12:00am Complies with drug therapy3 ml insulin lispro 100 unt/ml pen injector (20 sources)Insulin AnalogStart: 03-04-2025 End: 41-16-0314mqpszqv lispro (ADMELOG SOLOSTAR U-100 INSULIN) 100 unit/mL insulin pen Indications: Type 2 diabetes mellitus with foot ulcer, with long- term current use of insulin ([facility]) 70-150 0 units 151-174 2units 175-199 4 units 200-224 6 units 225-249 8 units 250-274 10 units 275-299 12 units 300-350 14 units >350 16 units and call provider 15 mL 04/26/2025 05/10/2025 DiscontinuedStart: 11-06-2020 End: 10-70-9757unvxjbw lispro (HumaLOG) 100 unit/mL injection Sliding scale before meals: BG 150-200 = +1 unit Humalog, 201-250=+2 Units Humalog, 251-300=+3 Units Humalog, 301-350= +4 Humalog, >351 =+5 units Humalog . 10 mL 0 11/20/2020 ActiveLidocaine (2 sources)Antiarrhythmic, Amide Local AnestheticStart: 11-19-2020 End: 82-42-1901narp 1 mL intradermal route every twenty-four hours as needed lidocaine 10 mg/mL (1 %) injection 1 mLStart: 11-06-2020 End: 78-27-5005ljxjxyhnl 10 mg/mL (1 %) injection - ADS Override Pulllidocaine 25 mg/ml / prilocaine 25 mg/ml topical cream (1 source)Antiarrhythmic, Amide Local AnestheticStart: 04-11-2025 End: Application, topical, Once, On Wed04/11/25 at 1100, For 1 dose, If no allergy, apply topically towounds with each wound care appointment with practitioner for pain control.Start: 04-11-2025 End: Application, topical, Once, On Wed04/11/25 at 1100, For 1 dose, If no allergy, apply topically towounds with each wound care appointment with practitioner for pain control.50 ml magnesium sulfate 40 mg/ml injection (1 source)Start: 11-12-2020 End: 53-34-0637gsewjdugk sulfate 2 g in sterile water (SW) 50 mL IVPBmetFORMIN hydrochloride 1000 mg oral tablet (20 sources)BiguanideStart: 01-18-2020 End: 13-65-2958jrdk 1 tablet by mouth twice dailyMetformin 1,000 mg tablet Discontinued 1000 MG PO Twice daily January 18, 2020 1:00am January 07, 2024 12:05pmmetFORMIN HCl Activemetoclopramide 15 mg/actuat nasal spray (4 sources)Dopamine-2 Receptor AntagonistStart: 04-10-2025 End: 96-63-5612lwukhcnhffeeyg HCl (GIMOTI) 15 mg/spray spray with pump Administer 1 spray into each nostril in themorning and 1 spray at noon and 1 spray in the evening and 1 spray before bedtime. 04/10/2025 04/26/2025 DiscontinuedStart: 01-24-0362tjagxmufabrgdg HCl (GIMOTI) 15 mg/spray nasal spray Indications: Diabetic gastroparesis (HCC) Use 1spray in the nose four times daily. 9.8 mL 2 04/10/2025 ActiveStart: 11-13-2020 End: 56-14-3948bdforabmtcrvqm (REGLAN) injection 10 mgnaloxone (NARCAN) injection 0.1 mg (1 source)Start: 11-07-2020 End: 96-49-5128vmxmglov (NARCAN) injection 0.1 mgomeprazole 40 mg delayed release oral capsule (14 sources)Proton Pump InhibitorStart: 08-25-2022 End: 78-34-9848Hehqenubeg 40 MG 1 capsule 30 minutes before morning meal and evening meal Orally twice a day for 30 day(s) Aug, Not-Taking2 ml ondansetron 2 mg/ml injection (1 source)Serotonin-3 Receptor AntagonistStart: 11-05-2020 End: 73-24-5299ofko 4 mg intravenous route every six hours as needed4 mg, Intravenous, Every 6 hours PRN, nausea, vomiting, Starting 11/05/20 at 1920 pantoprazole 40 mg delayed release oral tablet (20 sources)Proton Pump InhibitorStart: 08-25-2023 End: 11-61-6063fqmu 1 tablet by mouth in the morningpantoprazole (PROTONIX) 40 mg EC tablet Indications: Gastroesophageal reflux disease, unspecified whether esophagitis present Take 1 tablet (40 mg total) by mouth in the morning. 90 tablet Discontinued (Alternate therapy)Start: 02-02-2020 End: 20-29-0278ksjd 1 tablet by mouth in the morningpantoprazole (PROTONIX) 40 mg EC tablet Indications: Gastroesophageal reflux disease, unspecified whether esophagitis present Take 1 tablet (40 mg total) by mouth in the morning. 90 tablet 5Activepiperacillin 3000 mg / tazobactam 375 mg injection (1 source)Penicillin-class Antibacterial, beta Lactamase InhibitorStart: 11-05-2020 End: 89-34-2294aigj 3.375 g intravenous route every eight hourspiperacillin- tazobactam (ZOSYN) IVPB 3.375 g (premix)100 ml potassium chloride 0.2 meq/ml injection (7 sources)Start: 11-16-2020 End: 20-61-0909pxqr 20 mEq intravenous route every two hourspotassium chloride 20 mEq in 100 mL IVPBStart: 11-12-2020 End: 55-10-3508xijmigaeu chloride 20 mEq in 100 mL IVPBStart: 11-09-2020 End: 64-09-6171bcsu 20 mEq intravenous route every two hourspotassium chloride 20 mEq in 100 mL IVPBStart: 11-06-2020 End: 71-08-2732nfdcjlzjl chloride SA (K-DUR,KLOR-CON) CR tablet 40 mEqStart: 11-05-2020 End: 43-30-9505qjsgmlhlm chloride SA (K-DUR,KLOR-CON) CR tablet 20 mEqpotassium phosphate 30 mmol in sodium chloride 0.9 % (NS) 250 mL IVPB (1 source)Start: 11-05-2020 End: 55-15-9034opfczhcwx phosphate 30 mmol in sodium chloride 0.9 % (NS) 250 mL JUYG891 ml sodium chloride 9 mg/ml prefilled syringe (4 sources)Start: 11-19-2020 End: 44-77-3291dishio chloride (PF) (NS) flush 10 mLStart: 11-08-2020 End: 57-88-3148txxzti chloride 0.9% (NS)Start: 11-06-2020 End: 00-71-3635grfipr chloride 0.9% (NS) bolus 2,000 mLsodium chloride (PF) (NS) 0.9 % contrast line flush 10 mL (1 source)Start: 11-05-2020 End: 33-52-3846dcfbbg chloride (PF) (NS) 0.9 % contrast line flush 10 mLsodium phosphate, dibasic 59.3 mg/ml / sodium phosphate, monobasic 161 mg/ml enema (1 source)Start: 11-16-2020 End: 47-27-4138wjboqk phosphates (FLEETS ADULT) 19-7 gram/118 mL enema 1 each technetium (Tc-99m) (SULFUR COLLOID) solution 1 millicurie (1 source)Start: 11-13-2020 End: 72-46-8702aniakesezd (Tc-99m) (SULFUR COLLOID) solution 1 millicurie traMADol hydrochloride 50 mg oral tablet (1 source)Opioid AgonistStart: 11-07-2020 End: 91-09-1955ocnFHAbK (ULTRAM) tablet 50 mgStart: 11-07-2020 End: 47-20-4251uakQTEsY (ULTRAM) tablet 50 mgvancomycin (VANCOCIN) 1500 mg in sodium chloride 0.9% (NS) 500 mL IVPB (1 source)Start: 11-05-2020 End: 66-22-5962erje 1500 mg intravenous route every twenty-four hoursvancomycin (VANCOCIN) 1500 mg in sodium chloride 0.9% (NS) 500 mL IVPB Problems Active Problems Problem ClassificationProblemDateDocumented DateEpisodic/ChronicAbdominal pain (13 sources)Epigastric pain; Translations: [Epigastric pain]84-64-4242Wzscshou Administrative/social admission (1 source)Dietary counseling and surveillanceEpisodicAnxiety disorders (3 sources)Generalized anxiety disorder; Translations: [Generalized anxiety disorder]Onset: 269354-60-7919KldlyisWosyisfgw infection; unspecified site (1 source)Infection by methicillin sensitive Staphylococcus aureus; Translations: [MSSA (methicillin susceptible Staphylococcus aureus) infection] EpisodicChronic ulcer of skin (20 sources)Non-pressure chronic ulcer of other part of right foot with fat layer exposed; Translations: [Ulcerof other part of foot]Onset: 03-21-2021 93-58-6287BrvvffpUrszjizyag associated with dizziness or vertigo (4 sources)Dizziness and giddiness; Translations: [DIZZINESS AND GIDDINESS] Onset: 95-70-3667XadoxnduIwyndulo mellitus with complications (20 sources)Type 2 diabetes mellitus with hyperglycemia; Translations: [Type II diabetes mellitus uncontrolled]Onset: 546324-92-0631ZyhdhnfBnaqzzoc mellitus without complication (20 sources)Type 2 diabetes mellitus; Translations: [Type 2 diabetes mellitus without complications]Onset: 540775-26-5036BenmdwaRjgvlbc on above:Problem List clean-up per request of Phys. EHR CmteDisorders of lipid metabolism (20 sources)Hyperlipidemia; Translations: [Hyperlipidemia, unspecified]Onset: 49-20-9810GdcxkmmEcthehgnkl disorders (20 sources)Gastroesophageal reflux disease; Translations: [Gastro-esophageal reflux disease without esophagitis]Onset: 90-81-0110DlbsjniRriujdc on above: Problem List clean-up per request of Phys. EHR CmteEssential hypertension (20 sources)Hypertensive disorder; Translations: [Essential (primary) hypertension]Onset: 52-47-3029JolvkdeNqbcynjng arthritis and osteomyelitis (except that caused by tuberculosis or sexually transmitted disease) (20 sources)Acute osteomyelitis of foot; Translations: [Chronic osteomyelitis of foot with draining sinus]Onset: 941871-24-1868FoywhjuRqxiesreg arthritis and osteomyelitis (except that caused by tuberculosis or sexually transmitted di sease) (5 sources)Subacute osteomyelitis of left foot; Translations: [Subacute osteomyelitis of left foot (HCC)]Nausea and vomiting (20 sources)Nausea and vomiting; Translations: [Nausea with vomiting, unspecified]Onset: 15-69-9808HalouetkAmyatjuabst deficiencies (1 source)Vitamin D deficiency; Translations: [Vitamin D deficiency, unspecified]Onset: 737991-27-4517UzrwqeoUfntanygv or stenosis of precerebral arteries (9 sources)Bilateral carotid artery occlusion; Translations: [Occlusion and stenosis of bilateral carotid arteries]Onset: 263166-11-5424AlzgwyqPeawl acquired deformities (1 source)Retrolisthesis; Translations: [Spondylolisthesis, site unspecified] Onset: 549126-27-0272TmblaomgQwbho aftercare (1 source)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; Translations: [[employer] STORE COURTESY CLERK USE ORAL HYPOGLYCEMIC DX]Onset: 43-01-5235JpwegkhqJooap aftercare (1 source)Encounter for therapeutic drug level monitoring; Translations: [ENC THERAPEUTC DRUG LEVL MONITORING]Onset: 97-88-2370UsxttmrlKilno aftercare (1 source)Other [place] [facility] (current) drug therapy; Translations: [OTH GR[employer] STORE COURTESY CLERK CURRENT DRUG THERAPY]Onset: 72-48-5009VwrwkvlqKguon aftercare (8 sources)Long-term current use of insulin; Translations: [halfway (current) use of insulin]98-40-3361RmmrsmnwGiyzz aftercare (2 sources)Wound finding; Translations: [Encounter for other specified aftercare]48-90-9769FhndpmnzUhzet bone disease and musculoskeletal deformities (1 source)Amputated foot; Translations: [Acquired absence of left foot]Onset: 974651-50-1618NrgtmwyRrscm bone disease and musculoskeletal deformities (20 sources)History of amputation of right foot; Translations: [Acquired absence of right foot]Onset: 600834-25-1941OfsreiaCgflq bone disease and musculoskeletal deformities (1 source)Acquired absence of right foot; Translations: [Acquired absence of right foot]Onset: 80-34-8439PupochvVescm disorders of stomach and duodenum (3 sources)Gastroparesis; Translations: [Gastroparesis]Onset: 17-85-9290Zpbfddat Other disorders of stomach and duodenum (7 sources)Gastroparesis syndrome; Translations: [Gastroparesis]05-20-2025 EpisodicOther liver diseases (20 sources)Fatty (change of) liver, not elsewhere classified; Translations: [Other chronic nonalcoholic liver disease]Onset: 735064-79-9453Eitfcam Other liver diseases (5 sources)Steatosis of liver; Translations: [Fatty (change of) liver, not elsewhere classified]25-27-4107QdxbdqeXtrhs liver diseases (14 sources)Alkaline phosphatase raised; Translations: [Abnormal levels of other serum enzymes]Onset: 266256-05-7166LuimlwihNsddo nervous system disorders (5 sources)Peripheral nerve disease ; Translations: [Polyneuropathy, unspecified]47-25-4131IanigoqRfvaw nervous system disorders (2 sources)Other chronic pain; Translations: [Other chronic pain]Onset: 73-22-8502RfoswjeDhzha nervous system disorders (1 source)Abnormal gait; Translations: [Unspecified abnormalities of gait and mobility]Onset: 080244-21-9042UxmtztjhEeyyz non-traumatic joint disorders (2 sources)Charcot arthropathy of joint of ankle; Translations: [Charcot's joint of ankle, unspecified laterality]ChronicOther non-traumatic joint disorders (20 sources)Charcot's joint of foot; Translations: [Charcot's joint, left ankle and foot]Onset: 516800-69-9569UvwgcuwUjdzp nutritional; endocrine; and metabolic disorders (3 sources)Obese class II; Translations: [Body mass index (BMI) 36.0-36.9, adult]ChronicOther nutritional; endocrine; and metabolic disorders (1 source)Body mass index (BMI) 36.0-36.9, adultChronicOther nutritional; endocrine; and metabolic disorders (1 source)Hypoproteinemia; Translations: [Other disorders of glycoprotein metabolism]Onset: 871277-41-6503WqwrmmaTmzfj nutritional; endocrine; and metabolic disorders (1 source)Hypocalcemia; Translations: [Hypocalcemia]Onset: 388657-35-6048 ChronicOther nutritional; endocrine; and metabolic disorders (8 sources)Body mass index 30+ - obesity; Translations: [Obesity, unspecified] Onset: 973803-12-8942XqokrcnQmsvj skin disorders (1 source)Atrophic disorder of skin, unspecifiedEpisodicOther upper respiratory disease (1 source)Chronic rhinitis; Translations: [Chronic rhinitis]Onset: 04-14-2023 18-72-2945EwzlgrkHmgiaegbjc and visceral atherosclerosis (20 sources)Peripheral vascular disease, unspecified; Translations: [Peripheral vascular disease, unspecified]Onset: 292840-46-7318XfhwxtyLmgduhfm codes; unclassified (1 source)Family history of cardiac disorder; Translations: [Family history of ischemic heart disease and other diseases of the circulatory system]Onset: 474077-15-4440UzjbzoluXxedrho detachments; defects; vascular occlusion; and retinopathy (5 sources)Retinal disorder; 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] 07-07-7091VswfwczXiwrnlthgwl; intervertebral disc disorders; other back problems (20 sources)Chronic low back pain; Translations: [Chronic midline low back pain without sciatica]Onset: 884451-38-0908QdhjchstOgedvqryfozz (2 sources)DXOnset: 38-07-5466Gsoorscxvysf (1 source)New PatientOnset: 79-69-9065Twworaeypajt (6 sources)FU PRNUnclassified (2 sources)Low back pain, unspecified; Translations: [Low back pain, unspecified]Onset: 42-04-2774Thdhggylcjgd (1 source)Wound CheckOnset: 44-69-7135Huueazuqqwlm (1 source)Wound on FootOnset: 58-58-8973Rxtuxvnalpzt (1 source)transitonal care visitOnset: 58-53-3906Xiarfhminpzw (1 source)Establish CareOnset: 04-26-2025 Past or Other Problems Problem ClassificationProblemDateDocumented DateEpisodic/ChronicDiabetes mellitus without complication (3 sources)Hyperglycemia; Translations: [Hyperglycemia, unspecified]Onset: 178041-21-9434PacidxpgJmfscunz of upper limb (1 source)Closed multiple fractures of hand bones; Translations: [Unspecified fracture of unspecified wrist and hand, initial encounter for closed fracture] Onset: 066502-86-6252RjewjuidMputwqt and fatigue (3 sources)Fatigue; Translations: [Other fatigue]Onset: EpisodicMood disorders (20 sources)Mood disordersOnset: 02-07-2021 Resolved: Open wounds of extremities (20 sources)Open wound of foot with complication; Translations: [Unspecified open wound, left foot, initial encounter]Onset: 735002-37-7947Hrckuqmr Other aftercare (4 sources)halfway (current) use of insulin; Translations: [[employer] COURTESY CLERK CURRENT USE OF INSULIN]Onset: 50-58-4183KdbgpdmpLqwis aftercare (2 sources)Encounter for other specified aftercare; Translations: [Encounter for other specified aftercare]Onset: 97-89-5822IiopqxyjKmogx non-traumatic joint disorders (20 sources)Instability of joint of right ankle; Translations: [Other instability, right ankle]Onset: 960678-28-8788AdfadlqvIntxm screening for suspected conditions (not mental disorders or infectious disease) (4 sources)Patient encounter status; Translations: [Encounter for screening for malignant neoplasm of colon]Onset: 369406-26-6997WdqhpgrxZnire skin disorders (1 source)Corns and callosities; Translations: [Corns and callosities]Onset: 77-70-6953RmoqxkjyEnmmzxocze (except in labor) (20 sources)Sepsis; Translations: [Sepsis, unspecified organism]Onset: 02-07-2021 Resolved: 838524-07-0553SctfbgcgErnp and subcutaneous tissue infections (3 sources)Cutaneous abscess of left foot; Translations: [Cellulitis]Onset: 581882-35-7802AcmfzijqDpmxitxvfmqs (3 sources)Open wound of left qalr71-22-1116 Results Test NameValueInterpretationReference RangeFacilityPOCT Hemoglobin A1con 46-88-6203NWL Target < 8YeRipon Medical Center FtenmqMqW1f (Bld) [Mass fraction]9.0 %Abnormal4 - 7 %[facility] SystemInterpretation and review of laboratory resultsAbnormalProNationwide Children'S Hospital SystemProNationwide Children'S Hospital SystemCT angio neckon 64-91-0726SK angio [place]PRE[place] [address] [place] Scan Report Signed Patient: More Kingsley MR#: [id number] 125 : 1965 Acct:[id number] Age/Sex: 59 / M ADM Date: 08/22/25 Loc: CT Room: Type: [facility] Attending Dr: Cathy Leggett WEIGHT CLERK-C Copies to: Cathy Leggett APRN Ordering Provider: Cathy Leggett APRN Date of Service: 08/22/25 CT/CT angio head: I65.23 - Occlusion and stenosis of bilateral carotid ney... ([id number]) CT/CT angio neck: I65.23 - Occlusion and [...] Kidd M.D. 08/22/2025 5:14 PM Dictation Location: [place] [address] Transcribed By: AMBER 08/22/251713 Dictated By: Blair Kidd II, MD 08/22/251703 Signed By: 08/22/251713NoFormerly [facility] Physician GroupISTAT XRay CREon 34-67-8385LJXNC GFR>60.0NoFormerly [facility] Physician GroupComment on above:Result Comment: PERFORMED BY: [place] [address] PATHOLOGIST FRONT DESK MONITOR CHE TAVARES M.D.Performed By: #### ISCRE #### [place] [address] USANo Panel InformationOrdered By: Cathy Leggett on 76-93-5908Ixaktrt Estimated GFR (eGFR)> 60.0[facility] Whole blood creatinine measurementOrdered By: Cathy Leggett on 08-22-2025 Creatinine [Mass/Vol]1.3 mg/dL0.6-1.3FOhioHealth Grant Medical CenterComment on above:ER/ESD physician is notified/shown all ISTAT results.Critical values may be confirmed by laboratorytesting ifdeemed necessary by ER attending doctor. Result Comment: ER/ESD physician is notified/shown all ISTAT results. Critical values may be confirmed by laboratory testing if deemed necessary by ER attending doctor.Performed By: #### ISCRE #### [facility] [address] [place] [address] USALIPID PROFILEon 54-46-3576Zoznaqhzjgt [Mass/Vol]198 mg/dL Lfwgag876-003LbnFydnbuGonzales Memorial HospitalComment on above:Performed By: #### CBCA, CMP #### [facility] ([id number]) [address] [place] [address]Zpamkrdfapt in HDL [Mass/Vol]34 mg/dLLow>39ProGonzales Memorial HospitalComment on above:Result Comment: HDL <40 mg/dL - High Risk HDL > or = 40mg/dL- Desirable HDL >60 mg/dL - Negative RiskPerformed By: #### CBCA, CMP #### [facility] ([id number]) [address] [place] [address] 27679Tjeeouxbtny in LDL [Mass/Vol]128 mg/dLNormal<130ProGonzales Memorial HospitalComment on above:Result Comment: LDL <100 mg/dL - Desirable LDL >160 mg/dL - High RiskPerformed By: #### CBCA, CMP #### [facility] ([id number]) [address] [place] [address] 63116ANIRCGIQBMJ:HDL5.8High1.0-5.0ProGonzales Memorial HospitalComment on above:Performed By: #### CBCA, CMP #### [facility] ([id number]) [address] [place] [address] 969[address]Elbnsrooziox [Mass/Vol]179 mg/hKWsul68-614HmlRfzgjw [facility] HospitalComment on above:Performed By: #### CBCA, CMP #### [facility] ([id number]) [address] [place] [address] 311[address]NZMK LOW MFAYIQSUUDZ80 mg/dLHigh0-30[facility] Comment on above:Performed By: #### CBCA, CMP #### [facility] ([id number]) [address] [place] [address] 75544Mpoqueajkqfv 81-41-6713Zocfiqicdu Clr Calc Mkvivrdu18.67Normal The [facility] Physician GroupComment on above:Result Comment: PERFORMED BY: [place] [address] PATHOLOGIST FRONT DESK MONITOR CHE TAVARES M.D.Performed By: #### BUN, CREAT #### [facility] [address] [place] [address] USAGFR/1.73 sq M.predicted MDRD (S/P/Bld) [Vol rate/Area] 57.276 mL/min/{1.73_m2}NormalThe [facility] Physician [facility] HospitalComment on above: Performed By: #### BUN, CREAT #### [place] [id number] USACreatinine [Mass/volume] in Serum or PlasmaOrdered By: Chan Quintanilla on 76-19-1564Qqaryqoebo [Mass/Vol]1.42 mg/dLHigh0.70-1.30 [facility] HospitalComment on above:Performed By: #### BUN, CREAT #### [facility] [address] [place], [place] [id number] USANo Panel InformationOrdered By: Chan Quintanilla on 80-62-6631Axqivmtxy GFR (CKD-EPI)57.276 mL/MinGuernsey Memorial Hospital Pharmacy Creatinine Clearance (Chem72.67[facility] Memorial HospitalUrea nitrogen [Mass/volume] in Serum or PlasmaOrdered By: Chan Quintanilla on 86-94-2352Ciuv nitrogen [Mass/Vol]26 mg/dLHigh7-25[facility] Memorial HospitalComment on above:Performed By: #### BUN, CREAT #### [facility] [address] [place] [id number] USAUS UNI ankle/arm indiceson 92-21-1302CR UNI ankle/arm indicesSelect Medical [facility] [address] [place] [address] Ultrasound Report Signed Patient: More Kingsley MR#: [id number] 125 : 1965 Acct:[id number] Age/Sex: 59 / M ADM Date: 06/28/25 Loc: [facility] Room: Type: [facility] Attending Dr: Chan Quintanilla MD Ordering [...] Quintanilla MD,FACS,FSVS 07/04/2025 1:41 PM Dictation Location: [place] [address] Tech: Soraida Tez Transcribed By: PWS 07/04/25 1341 Dictated By: Chan Quintanilla MD 07/04/25 1341 Signed By: 07/04/25 1341[facility] Physician GroupXR FOOT RT MIN 3 VWS WEIGHT BEARINGon 15-07-0657RJ FOOT RT MIN 3 VWS WEIGHT BEARINGXR FOOT RT MIN 3 VWS WEIGHT BEARING XR FOOT RT MIN 3 VWS WEIGHT BEARING HISTORY: Right foot ulcer, with unspecified severity ([facility]). COMPARISON: 03/04/2025 IMPRESSION: Unchanged indication about the metatarsals. Progressive sclerosis and irregularity of the plantar aspect remnant tarsal/metatarsal are nonspecific, infection is possible. Correlate for associated soft tissue injury, consider MR, as appropriate. Plantar and Achilles calcaneal enthesophytes. Vascular calcifications. Finalized by Thomas Schrader MD on 06/12/2025 2:05 [facility] GENERIC BQVZ RESULTSEE NOTEAbnormalMagruder Memorial HospitalComment on above:Result Comment: Test name Result Flag Units RefIntvl Testosterone, Total by [employer] 234.3 L ng/dL 300.0-890.0 This test was developed and its performance characteristics determined by [employer]. It has not been cleared or approved [...] Children, or Individuals on Testosterone-Suppressing Hormone Therapy) ([employer] test code 1953210). For individuals on testosterone hormone therapy, refer to cisgender male reference intervals. No reference intervals have been established for males younger than 18 years or for cisgender females. For a complete set of all established reference intervals, refer to [employer]/Tests/Pub/[id number]. This test was developed and its performance characteristics determined by [employer]. It has not been cleared or approved by the US Food and Drug Administration. This test was performed in a CLIA certified laboratory and is intended for clinical purposes. Performed By: [employer] [address] [place] [address] Opener Verifier [employer]: Warren Simmons MD, PhD CLIA Number: [id number] By: #### ARELY, CMP #### [facility] ([id number]) [address] [place] [address] 77530HTHYBZBNGna 67-44-6182Mbjnmcaag [Mass/Vol]2.0 mg/dLNormal 1.8-2.6Mag[facility]uder Memorial HospitalComment on above:Performed By: #### ARELY, CMP #### [facility] ([id number]) [address] [place] [address] 70553KAIWRBKAA SPECIFIC ANTIGEN SCREENon 49-66-3644OLYJAHEAR SPEC ANT0.86 ng/mLNormal0.00-4.00ProGonzales Memorial HospitalComment on above:Result Comment: The method used for this test is [employer] DXI chemiluminescent immunoassay. Values obtained by different assay methods cannot be used interchangeably.Performed By: #### ARELY, CMP #### [facility] ([id number]) [address] [place] [address] 90866YBSQERYUICLQ, TOTAL AND FREE, Son 40-53-0407QNGSFPJWZJRK, TOTAL AND FREE, STESTF TESTOSTERONE, TOTAL AND FREE, S CancelledNormalProGonzales Memorial HospitalVITAMIN B12on 07-03-5640Rcasctmhw (Vitamin B12) [Mass/Vol]1009 pg/xCIgkd358-750IqtLfyyeh [facility] Medical CenterComment on above:Performed By: #### ARELY, CMP #### [facility] ([id number]) [address] [place] [address] 90525BRFRHPM D 25 HYDROXYon 99-01-4437JKAFADI D 25 HYD TOT84.2 ng/mL Ewmckh19.0-100.0ProGonzales Memorial HospitalComment on above:Order Comment: Vitamin D status 25 [place] Vitamin D Deficiency <20 ng/mLInsufficiency 20-29 ng/mLSufficiency 30-100 ng/mLToxicity >100 ng/mLNOTE: A pediatric reference range has not been established by the commercial credit analyst of this kit. The [place] Academy of Pediatrics recommends a Vitamin D level of = or >20ng/mL in infants and children.Performed By: #### CBCA, CMP #### [facility] ([id number]) [address] [facility], [place], [place] [address]TR SPINE LUMB COMP INCL BEND 6+ VWSon 06-65-2436QP SPINE LUMB COMP INCL BEND 6+ VWSXR SPINE LUMB COMP INCL BEND 6+ VWS [...] by Vivien Feliz MD on 05/04/2025 3:25 PMNormalProMedica Sequoia Hospital WITH AUTO DIFFERENTIALon 35-73-1899CXHHZRWJZ ABSOLUTE COUNT (10*3/UL) BY AUTOMATED COUNT0.1 10*3/uLNormal0.0-0.2[facility] Comment on above:Performed By: #### CBCA #### [facility] ([facility]) [address] [place] [address] VIRBASOPHILS RELATIVE PERCENT BY AUTOMATED COUNT1.3 %Normal ProMedicKaiser Permanente Medical CenterComment on above:Performed By: #### CBCA #### [facility] ([facility]) [address] [place] [address] VIRCELLAVISION DIFFERENTIAL TYPEAUTOMATED DIFFERENTIALNormal [facility] Mari[facility] HospitalComment on above:Performed By: #### CBCA #### [facility] ([facility]) [address] [place] [address] VIREosinophils (Bld) [#/Vol]0.2 10*3/uLNormal0.0-0.4Mag[facility]uder Memorial HospitalComment on above:Performed By: #### CBCA #### [facility] ([facility]) [address] [place] [address] VIREOSINOPHILS RELATIVE PERCENT BY AUTOMATED COUNT2.5 %Normal [facility] HospitalComveterans affairs medical center on above:Performed By: #### CBCA #### [facility] ([facility]) [address] [place] [address] VIRErythrocyte distribution width (RBC) [Ratio]15.2 %High 11.5-15Mag[facility] Memorial HospitalComveterans affairs medical center on above:Performed By: #### CBCA #### [facility] ([facility]) [address] [place] [address] VIRHematocrit (Bld) [Volume fraction]42.3 %Sqzsgh41-78PnsJnobsoMagruder Memorial HospitalComment on above:Performed By: #### CBCA #### [facility] ([facility]) [address] [place] [address] VIRHemoglobin (Bld) [Mass/Vol]14.1 g/aBGqmabq50-87RolXgjzdfMagruder Memorial HospitalComveterans affairs medical center on above:Performed By: #### CBCA #### [facility] ([facility]) [address] [place] [address] VIRLYMPHOCYTES ABSOLUTE COUNT (10*3/UL) BY AUTOMATED COUNT1.9 10*3/uLNormal1.0-3.5PFairfield Medical CenterComveterans affairs medical center on above:Performed By: #### CBCA #### [facility] ([facility]) [address] [place] [address] VIRLYMPHOCYTES RELATIVE PERCENT BY AUTOMATED COUNT22.1 %Normal [facility] Memorial HospitalComment on above:Performed By: #### CBCA #### [facility] ([facility]) [address] [place] [address] VIRMCH (RBC) [Entitic mass]27.5 niJwiiwu27-42YpsBqgcisGonzales Memorial HospitalComment on above:Performed By: #### CBCA #### [facility] ([facility]) [address] [place] [address] VIRMCHC (RBC) [Mass/Vol]33.4 g/oHDkzyqd02-67AfnUytlpfGonzales Memorial HospitalComment on above:Performed By: #### CBCA #### [facility] ([facility]) [address] [place] [address] VIRMCV (RBC) [Entitic vol]82 hCYesekv81-394NkyVcdaag [facility] HospitalComment on above:Performed By: #### CBCA #### [facility] ([facility]) [address] [place] [address] VIRMONOCYTES ABSOLUTE COUNT (10*3/UL) BY AUTOMATED COUNT0.9 10*3/uLNormal0.0-0.9Mag[facility] Memorial HospitalComveterans affairs medical center on above:Performed By: #### CBCA #### [facility] ([facility]) [address] [place] [address] VIRMONOCYTES RELATIVE PERCENT BY AUTOMATED COUNT10.6 %Normal [facility] Memorial HospitalComment on above:Performed By: #### CBCA #### [facility] ([facility]) [address] [place] [address] VIRNEUTROPHILS ABSOLUTE COUNT BY AUTOMATED COUNT5.5 10*3/uL Normal1.5-6.6Mag[facility] Memorial HospitalComveterans affairs medical center on above:Performed By: #### CBCA #### [facility] ([facility]) [address] [place] [address] VIRNEUTROPHILS RELATIVE PERCENT BY AUTOMATED COUNT63.5 %Normal [facility] Memorial HospitalComment on above:Performed By: #### CBCA #### [facility] ([facility]) [address] [place] [address] VIRPlatelet mean volume (Bld) [Entitic vol]9.5 fLNormal7-12 [facility] Memorial HospitalComment on above:Performed By: #### CBCA #### [facility] ([facility]) [address] [place] [address] VIRPlatelets (Bld) [#/Vol]298 10*3/cWNrlicp595-213QauZgitaiMagruder Memorial HospitalComment on above:Performed By: #### CBCA #### [facility] ([facility]) [address] [place] [address] VIRRBC COUNT5.14 X10E12/LNormal4.1-5.7Mag[facility] Memorial HospitalComment on above:Performed By: #### CBCA #### [facility] ([facility]) [address] [place] [address] VIRWBC (Bld) [#/Vol]8.7 10*3/uLNormal4-11Mag[facility] Memorial HospitalComment on above:Performed By: #### CBCA #### [facility] ([facility]) [address] [place] [address] VIRCOMPREHENSIVE METABOLIC PANELon 69-17-2879Zvqakip [Mass/Vol] 3.7 g/dLNormal3.2-5.3PFairfield Medical CenterComment on above:Performed By: #### CMP #### [facility] ([facility]) [address] [place] [address] VIRALP [Catalytic activity/Vol]102 U/OLmhbbg59-524LbxXzhgvaMagruder Memorial HospitalComment on above:Performed By: #### CMP #### [facility] ([facility]) [address] [place] [address] VIRALT [Catalytic activity/Vol]14 U/LNormal<=40ProGonzales Memorial HospitalComment on above:Performed By: #### CMP #### [facility] ([facility]) [address] [place] [address] VIRAnion gap [Moles/Vol]10 mmol/LNormal5-15ProGonzales Memorial HospitalComment on above:Performed By: #### CMP #### [facility] ([facility]) [address] [place] [address] VIRAST [Catalytic activity/Vol]18 U/LNormal<=41ProGonzales Memorial HospitalComment on above:Performed By: #### CMP #### [facility] ([facility]) [address] [place] [address] VIRBilirubin [Mass/Vol]0.9 mg/dLNormal0.3-1.2PFairfield Medical CenterComment on above:Performed By: #### CMP #### [facility] ([facility]) [address] [place] [address] VIRCalcium [Mass/Vol]9.6 mg/dLNormal8.5-10.5PFairfield Medical CenterComment on above:Performed By: #### CMP #### [facility] ([facility]) [address] [place] [address] VIRChloride [Moles/Vol]100 mmol/JHtmkks51-852NufMaudzgGonzales Memorial HospitalComment on above:Performed By: #### CMP #### [facility] ([facility]) [address] [place] [address] VIRCO2 [Moles/Vol]22 mmol/GKefrpq56-70OhoGsnbrbFairfield Medical CenterComment on above:Performed By: #### CMP #### [facility] ([facility]) [address] [place] [address] VIRCreatinine [Mass/Vol]1.61 mg/dLHigh0.60-1.30Mag[facility]uder Memorial HospitalComment on above:Result Comment: METHOD TRACEABLE TO IDMS STANDARDPerformed By: #### CMP #### [facility] ([facility]) [address] [place] [address] VIRGFR/1.73 sq M.predicted among non-blacks MDRD (S/P/Bld) [Vol rate/Area]49 mL/min/{1.73_m2}Low>=60ProGonzales Memorial HospitalComment on above: Result Comment: Reported eGFR is based on the CKD-EPI 2020 equation that does not use a race coefficient.Performed By: #### CMP #### [facility] ([facility]) [address] [place] [address] VIRGlucose [Mass/Vol]323 mg/wINwsf12-36MtoZvozycGonzales Memorial HospitalComment on above:Performed By: #### CMP #### [facility] ([facility]) [address] [place] [address] VIRPotassium [Moles/Vol]4.1 mmol/LNormal3.5-5.0ProGonzales Memorial HospitalComment on above:Performed By: #### CMP #### [facility] ([facility]) [address] [place] [address] VIRProtein [Mass/Vol]8.9 g/dLHigh6.0-8.0Mag[facility] Memorial HospitalComment on above:Performed By: #### CMP #### [facility] ([facility]) [address] [place] [address] VIRSodium [Moles/Vol]132 mmol/DSwe423-337BobTwjuhfGonzales Memorial HospitalComment on above:Performed By: #### CMP #### [facility] ([facility]) [address] [place] [address] VIRUrea nitrogen [Mass/Vol]28 mg/dLHigh5-23ProGonzales Memorial HospitalComment on above:Performed By: #### CMP #### [facility] ([facility]) [address] [place] [address] VIRHEMOGLOBIN A1Con 59-39-7343Iipsgry [Mass/Vol]283 mg/dLNormal ProMveterans affairs medical center-birminghama [facility] Medical CenterComment on above:Performed By: #### HA1C #### [facility] ([facility]) [address] [place] [address] NBWUrK7u (Bld) [Mass fraction]11.5 %High4.4-5.6ProGonzales Memorial HospitalComment on above:Result Comment: ADA Guidelines Result HgbA1c Normal : less than 5.7 % Prediabetes : 5.7 % to 6.4 % Diabetes : > 6.4 % Use with caution in patients with abnormal hemoglobin variants as the half-life of red blood cells and in vivo glycation rates are affected.Performed By: #### HA1C #### [facility] ([facility]) [address] [place] [address] VIRDebridementon 51-13-7499HnglSCOTT Vaughn 04/24/2025 12:02 PM Debridement Performed by: SCOTT Vaughn Authorized by: SCOTT Vaughn Associated wounds: Wound 03/28/25 1 Diabetic Ulcer Foot Right;Plantar Consent: Consent obtained: Verbal and written Consent given by: Patient Risks discussed: Yes Debridement Details: Performed by: WEIGHT CLERK Type: Sharp Level: Subcutaneous Tissue, Devitalized tissue and other material debrided: Subcutaneous tissue, fibrin, biofilm and callus Anesthesia administration: topical Anesthesia: EMLA Total Surface Area Debrided cm^2: 7.26 Specimen Taken: None Instrument: Curette Amount of bleeding: Small Bleeding Control: Pressure Response to treatment: Procedure was tolerated well Tissue Applied?: NoMANUALLY TRANSCRIBED RESULTSDoctors HospitalNo Panel Informationon 96-15-9748WURVHSU IN CLINIC TODAY.MANUALLY TRANSCRIBED RESULTSNo Panel InformationOrdered By: Sulma Humphreys on 92-84-1518BiiUnpnthDoctors Hospital NURSING PROGon 96-22-7404GJBZAVY PROGHNO ID: [id number] Author: ROBBIN CONTI RN Service: ? Author [...] same thing I was told. No instructions given.NormalSouthpointRehabilitation Hospital of [facility] 89-64-5071MQWYQtdpfxpec (GENSSP) MORE KINGSLEY JR. ([id number]) 1965 M Date Time Provider Department 04/18/25 JEROME DEL TORO GENVIKAS During your visit today, we recorded the following information about you: Tamara Goncalves RN 04/19/2025 8:06 AM Addendum G-POEM for date of service 04/25/2025. Appeal with all information including letter, study, JAMIN notes, GES result, EGG result, EGD result, CT result, faxed to [employer]/Appeals Dept at fax [phone] with confirmation. Appeal also mailed out to [employer]/Appeals Dept to the address provided. Copy placed in shared clinical office filing cabinet. Tamara Goncalves RN 05/03/2025 10:35 AM Addendum Email received from [place]/Pre-Access Denials Team: We are glad to inform you that your appeal was successfully overturned and CPT 70757 is now authorized and test needs to [...] Fully Assessed Reason for Visit: Care Coordination [8830] Cmt: Appeal for GPOEM denial Prescriptions as [...] (None) Encounter Status:Closed by TAMARA GONCALVES on [facility]/18/25[facility] [id number] (GENSSP) MORE KINGSLEY JR. ([id number]) 1965 M Date Time Provider Department 04/11/25 JEROME DEL TORO During your visit today, we recorded the following information about you: Jeremiah Stiles RN 04/11/2025 12:55 PM Signed PA for Gimoti initiated electronically through [facility] site with Anderson Code 2S6S26 started by [employer] at [phone] with fax# [phone]. Awaiting response [facility] [employer] ID# [id number] Rx Grp RXAETD Tiff Mejias LPN 04/11/2025 3:19 PM Signed Gimoti Medication approved from 11/22/24 thru 11/21/25. Patient and pharmacy aware. Annchijaylen MATTY Mejias Allergies As of Date: 04/11/2025 Noted Allergy [...] RN 04/11/2025 12:55 PM >> JEREMIAH STILES April 11, 2025 12:55 PM PA for Gimoti initiated electronically through [facility] site with Anderson Code 2S6S26 started by [employer] at [phone] with fax# [phone]. Awaiting response [facility] [employer] ID# [id number] Rx Grp RXAETD >> MartinReba alejandrojaylenMATTY 04/11/2025 3:19 PM >> TIFF MEJIAS Wed April 11, 2025 3:19 PM Med approved thru 11/21/25 Problem List As Of Date: 04/11/2025 (None) Encounter Status:Closed by JEREMIAH STILES on 04/11/25[facility] 83-50-2499VhlxSCOTT Vaughn 04/11/2025 12:18 PM Debridement Performed by: SCOTT Vaughn Authorized by: SCOTT Vaughn Associated wounds: Wound 03/28/25 1 Diabetic Ulcer Foot Right;Plantar Consent: Consent obtained: Verbal and written Consent given by: Patient Risks discussed: Yes Debridement Details: Performed by: WEIGHT CLERK Type: Sharp Level: Subcutaneous Tissue, Devitalized tissue and other material debrided: Subcutaneous tissue, callus and fibrin Anesthesia administration: topical Anesthesia: EMLA Total Surface Area Debrided cm^2: 7.78 Specimen Taken: None Instrument: Curette Amount of bleeding: Medium Bleeding Control: Pressure Response to treatment: Procedure was tolerated well Tissue Applied?: NoMANUALLY TRANSCRIBED RESULTSVermont Psychiatric Care HospitalButter Systems SystemXeroform 4x4on 42-10-0485Apyjkab in clinic todayMANUALLY TRANSCRIBED RESULTSAdams County Regional Medical CenterLoveLab.com INC. SystemACETYLCHOLINE REC BINDING ABon 20-02-7484KLXWNBFDCQFGT BINDING, QUALNegativeNormalNegativeSoutencompass rehabilitation hospital of western massachusettse HospitalComment on above:Order Comment: Specimen Type: BLOOD SPECIMEN Ordering Facility: [facility] Address: [address] [place], [place] [address]Result Comment: Anti-acetylcholine receptor binding antibody test is used as an aid in diagnosis ofmyasthenia gravis. A negative result cannot exclude myasthenia gravis. Clinical correlation is required.Performed By: #### ACHRAB #### [facility] CLIA [id number] [address] [place] [address] [place] [address] [place] AMERICAAcetylcholine receptor binding Ab (S) [Moles/Vol]<0.02Normal<0.21Southpointe HospitalComment on above: Order Comment: Specimen Type: BLOOD SPECIMEN Ordering Facility: [facility] Address: [address] [place], [place] [address]Performed By: #### ACHRAB #### [facility] CLIA [id number] [address] [place], [place] [address] [place] AMERICAAMINO ACIDS, PLASMA W/ CONSULTATIONon 83-90-9022Bntkbbx [Moles/Vol]412 umol/TBdanbv097-658Nlodhchklne HospitalComment on above:Order Comment: Specimen Type: BLOOD SPECIMEN Ordering Facility: [facility] Address: [address] [place], [place] [address]Performed By: #### PAABI #### [facility] CLIA [id number] [address] [place] [address] [place] AMERICAAlloisoleucine [Moles/Vol]<2 Normal0-2Sresearch psychiatric center HospitalComment on above:Order Comment: Specimen Type: BLOOD SPECIMEN Ordering Facility: [facility] Address: [address] [place], [place] [address]Performed By: #### PAABI #### [facility] CLIA [id number] [address] [place] [address] [place] AMERICAAlpha aminoadipate [Moles/Vol]<7Evnkkv8-6Gzrbhbptlzw HospitalComment on above:Order Comment: Specimen Type: BLOOD SPECIMEN Ordering Facility: [facility] Address: [address] [place], [place] [address]Performed By: #### PAABI #### [facility] CLIA [id number] [address] [place], [place] [address] [place] OF AMERICAAMINO ACID CONSULTATION, PLASMANormalSresearch psychiatric center HospitalComment on above:Order Comment: Specimen Type: BLOOD SPECIMEN Ordering Facility: [facility] Address: [address] [place], [place] [address]Result Comment: This plasma amino acid analysis is mainly notable for low levels of serine and glycine. Low levels of plasma serine and glycine is potentially related to the patient's clinical history ofdiabetes. Reference intervals from Jovani E, Pat MG, Amarjit MANDEEP, and Anderson DK: Biochemical Genetics: A Laboratory Manual, Copyright 1989 by [employer] Reference intervals not established for some amino acids. This test was developed and its performance characteristics determined by the [facility] Department of Pathology and Laboratory Medicine. It has not been cleared or approved by the FDA. The [facility] Department of Pathology and Laboratory Medicine is regulated under CLIA as qualified to perform high-complexity testing. This test is used for clinical purposes. It should not be regarded as investigational or for research.Performed By: #### PAABI #### [facility] CLIA [id number] [address] [place] [address] [place] AMERICAAMINO ACIDS REVIEW, PLASMA Reviewed by Forrest Gomez MD, Ph.D ([id number])[facility] on above:Order Comment: Specimen Type: BLOOD SPECIMEN Ordering Facility: [facility] Address: [address] [place], [place] [address]Performed By: #### PAABI #### [facility] CLIA [id number] [address] [place] [address] [place] AMERICAArginine [Moles/Vol]73 umol/XOqhkuz83-345YizogzkahckProgress West Hospital on above:Order Comment: Specimen Type: BLOOD SPECIMEN Ordering Facility: [facility] Address: [address] [place], [place] [address]Performed By: #### PAABI #### [facility] CLIA [id number] [address] [place] [address] [place] AMERICAAsparagine [Moles/Vol]31 umol/RZkw99-74Uvmdcffymsy HospitalComment on above:Order Comment: Specimen Type: BLOOD SPECIMEN Ordering Facility: [facility] Address: [address] [place], [place] [address]Performed By: #### PAABI #### [facility] CLIA [id number] [address] [place] [address] [place] AMERICAAspartate [Moles/Vol]3 umol/LNormal1-25[facility]inte HospitalComment on above:Order Comment: Specimen Type: BLOOD SPECIMEN Ordering Facility: [facility] Address: [address] [place], [place] [address]Performed By: #### PAABI #### [facility] CLIA [id number] [address] [place] [address], [facility]95 [place] AMERICACitrulline [Moles/Vol]38 umol/UAatpif77-27Hagrakprtfs HospitalComment on above:Order Comment: Specimen Type: BLOOD SPECIMEN Ordering Facility: [facility] Address: [address] [place], [place] [address]Performed By: #### PAABI #### [facility] CLIA [id number] [address] [place], [place] [address] [place] AMERICACystine [Moles/Vol]50 umol/L Normal5-82Southpointe HospitalComment on above:Order Comment: Specimen Type: BLOOD SPECIMEN Ordering Facility: [facility] Address: [address] [place], [place] [address]Performed By: #### PAABI #### [facility] CLIA [id number] [address] [place], [place] [address] [place] AMERICAGlutamate [Moles/Vol]82 umol/VHnxubz57-735Mpikgztkpqa HospitalComment on above:Order Comment: Specimen Type: BLOOD SPECIMEN Ordering Facility: [facility] Address: [address] [place], [place] [address]Performed By: #### PAABI #### [facility] CLIA [id number] [address] [place], [place] [address] [place] AMERICAGlutamine [Moles/Vol]478 umol/MSmsimm048-320Xllcvxoprgt HospitalComment on above:Order Comment: Specimen Type: BLOOD SPECIMEN Ordering Facility: [facility] Address: [address] [place], [place] [address]Performed By: #### PAABI #### [facility] CLIA [id number] [address] [place], [place] [address] [place] AMERICAGlycine [Moles/Vol]125 umol/IKmi323-730Hrqlodqmxar HospitalComment on above:Order Comment: Specimen Type: BLOOD SPECIMEN Ordering Facility: [facility] Address: [address] [place], [place] [address]Performed By: #### PAABI #### [facility] CLIA [id number] [address] [place], [place] [address] [place] AMERICAHistidine [Moles/Vol]53 umol/JXoc26-423Alajlosarjh HospitalComment on above:Order Comment: Specimen Type: BLOOD SPECIMEN Ordering Facility: [facility] Address: [address] [place], [place] [address]Performed By: #### PAABI #### [facility] CLIA [id number] [address] [place], [place] [address] [place] AMERICAHydroxylysine [Moles/Vol]<2 High<=0Southpoint HospitalComment on above:Order Comment: Specimen Type: BLOOD SPECIMEN Ordering Facility: [facility] Address: [address] [place], [place] [address]Performed By: #### PAABI #### [facility] CLIA [id number] [address] [place], [place] [address] [place] AMERICAHydroxyproline [Moles/Vol] NormalSouthpointe HospitalComment on above:Order Comment: Specimen Type: BLOOD SPECIMEN Ordering Facility: [facility] Address: [address] [place], [place] [address]Result Comment: Unable to assay. Analytical difficultyPerformed By: #### PAABI #### [facility] CLIA [id number] [address] [place], [place] [address] [place] AMERICAIsoleucine [Moles/Vol]62 umol/ZEfnelt79-696Hpdqkhzcnjm HospitalComment on above:Order Comment: Specimen Type: BLOOD SPECIMEN Ordering Facility: [facility] Address: [address] [place], [place] [address]Performed By: #### PAABI #### [facility] CLIA [id number] [address] [place] [address] [place] AMERICALeucine [Moles/Vol]109 umol/JZwyopp71-259Xfeozblmbjy HospitalComment on above:Order Comment: Specimen Type: BLOOD SPECIMEN Ordering Facility: [facility] Address: [address] [place], [place] [address]Performed By: #### PAABI #### [facility] CLIA [id number] [address] [place], [place] [address] [place] AMERICALysine [Moles/Vol]143 umol/L Faxipm764-660Kuxnqtthteu HospitalComment on above:Order Comment: Specimen Type: BLOOD SPECIMEN Ordering Facility: [facility] Address: [address] [place], [place] [address]Performed By: #### PAABI #### [facility] CLIA [id number] [address] [place], [place] [address] [place] AMERICAMethionine [Moles/Vol]19 umol/RIahvdf98-87Okmplfcpaxa HospitalComment on above:Order Comment: Specimen Type: BLOOD SPECIMEN Ordering Facility: [facility] Address: [address] [place], [place] [address]Performed By: #### PAABI #### [facility] CLIA [id number] [address] [place] [address], [place] [address] [place] AMERICAOrnithine [Moles/Vol]43 umol/CDcf66-818Viqoqfabpli HospitalComment on above:Order Comment: Specimen Type: BLOOD SPECIMEN Ordering Facility: [facility] Address: [address] [place], [place] [address]Performed By: #### PAABI #### [facility] CLIA [id number] [address] [place] [address] [place] AMERICAPhenylalanine [Moles/Vol]63 umol/NCgzraw74-07Mucnjdzoeey HospitalComment on above:Order Comment: Specimen Type: BLOOD SPECIMEN Ordering Facility: [facility] Address: [address] [place], [place] [address]Performed By: #### PAABI #### [facility] CLIA [id number] [address] [place] [id number] [place] AMERICAProline [Moles/Vol]237 umol/KFtrtsj78-469Ojsoubolwnb HospitalComment on above:Order Comment: Specimen Type: BLOOD SPECIMEN Ordering Facility: [facility] Address: [address] [place], [place] [address]Performed By: #### PAABI #### [facility] CLIA [id number] [address] [place] [address], [place] [address] [place] AMERICASarcosine [Moles/Vol]<2High <=0[facility] HospitalComment on above:Order Comment: Specimen Type: BLOOD SPECIMEN Ordering Facility: [facility] Address: [address] [place], [place] [address]Performed By: #### PAABI #### [facility] CLIA [id number] [address] [place], [place] [address] [place] AMERICASerine [Moles/Vol]41 umol/L Oou51-200Qoxlrautncw HospitalComment on above:Order Comment: Specimen Type: BLOOD SPECIMEN Ordering Facility: [facility] Address: [address] [place], [place] [address]Performed By: #### PAABI #### [facility] CLIA [id number] [address] [place], [place] [address] [place] AMERICATaurine [Moles/Vol]58 umol/L Ptexza13-557Clidylajcwx HospitalComment on above:Order Comment: Specimen Type: BLOOD SPECIMEN Ordering Facility: [facility] Address: [address] [place], [place] [address]Performed By: #### PAABI #### [facility] CLIA [id number] [address] [place], [place] [address] [place] AMERICAThreonine [Moles/Vol]109 umol/CLibjfg95-660Ofigajevgaa HospitalComment on above:Order Comment: Specimen Type: BLOOD SPECIMEN Ordering Facility: [facility] Address: [address] [place], [place] [address]Performed By: #### PAABI #### [facility] CLIA [id number] [address] [place], [place] [address] [place] AMERICATyrosine [Moles/Vol]68 umol/QZuajcx53-002Yyobpjfvjwn HospitalComment on above:Order Comment: Specimen Type: BLOOD SPECIMEN Ordering Facility: [facility] Address: [address] [place], [place] [address]Performed By: #### PAABI #### [facility] CLIA [id number] [address] [place] [address] [place] AMERICAValine [Moles/Vol]227 umol/L Phkgok123-194Tcqdboklfpd HospitalComment on above:Order Comment: Specimen Type: BLOOD SPECIMEN Ordering Facility: [facility] Address: [address] [place], [place] [address]Performed By: #### PAABI #### [facility] CLIA [id number] [address] [place] [address] [place] AMERICACARNITINE FREE AND TOTAL, PLASMAon 88-79-6335Y3 [Moles/Vol]39.0 umol/CKbybrc70.0-53.0[facility] Comment on above:Order Comment: Specimen Type: BLOOD SPECIMEN Ordering Facility: [facility] Address: [address] [place], [place] [address]Performed By: #### CARNPL #### [facility] CLIA [id number] [address] [place] [address] [place] AMERICACarnitine [Moles/Vol]49.3 umol/DNchpxc04.4-66.0SoParkland Health CenterComment on above:Order Comment: Specimen Type: BLOOD SPECIMEN Ordering Facility: [facility] Address: [address] [place], [place] [address]Performed By: #### CARNPL #### [facility] CLIA [id number] [address] [place] [address] [place] AMERICACarnitine esters [Moles/Vol] 10.3 umol/LNormal3.0-15.6SoParkland Health CenterComment on above:Order Comment: Specimen Type: BLOOD SPECIMEN Ordering Facility: [facility] Address: [address] [place], [place] [address]Performed By: #### CARNPL #### [facility] IA [id number] [address] [place] [address] [place] AMERICACarnitine esters/Carnitine.free (C0) [Molar ratio]0.9Rjsima3.1-0.7SoParkland Health Center Comment on above:Order Comment: Specimen Type: BLOOD SPECIMEN Ordering Facility: [facility] Address: [address] [place], [place] [address]Result Comment: NOTE: The determination of the plasma [...] determined by the [facility]ology [facility] [place] at the [facility]. The U.S. Food and Drug Administration has not approved or cleared this test, however, FDA clearance or approval is not currently required for clinical use.Performed By: #### CARNPL #### [facility] CLIA [id number] [address] AMERICACK SerPl-cCncon 82-79-5894XX [Catalytic activity/Vol]41 U/USqd64-254Xnvuolkjzkc HospitalComment on above: Order Comment: Specimen Type: BLOOD SPECIMEN Ordering Facility: [facility] Address: [address] [place], [place] [address]Performed By: #### 1988-5, 2157-6 #### [facility] [id number] [address] [place], [place] [address]CNOVon [id number] Office Visit (GENSSP) MORE KINGSLEY JR. ([id number]) 1965 M Date Time Provider Department 04/10/25 10:00 AM JEROME DEL TORO GENVIKAS During your visit today, we recorded the following information about you: Pulse Blood pressure Weight Height 101/minute 149/84 115 kg 1.778 m [place], [place] 04/10/2025 10:33 AM Signed What is [...] 10:33 AM Signed [facility] [place] Gastroparesis/Dysmotility Consultation SERVICE DATE: 04/10/2025 SERVICE TIME: 10:04 AM PRIMARY CARE PHYSICIAN: No primary care provider on file. Imad Asanew [address] [address] My final recommendations will be communicated back [...] obtained. NAME: More Kingsley Jr. 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 He denies any significant psychiatric history and [...] that his mattress qual (more content not included)...NormalTriHealth McCullough-Hyde Memorial HospitalOVOffice Visit (GASTSP) MORE KINGSLEY ([id number]) 1965 M Date Time Provider Department 04/10/25 8:00 AM ART FIGUEREDO GASTSP During your visit today, we recorded the following information about you: Pulse Blood pressure Weight Height 101/minute 149/84 115 kg 1.778 m Art Figueredo Liss[place], DO 04/10/2025 10:51 AM Signed GASTROPARESIS CONSULT [...] Medications - Does the patient see a supervisor painting department for chronic pain?No - Is the patient [...] - Has the patient met with a pouch maker for diet recommendations with Gastroparesis? No - [...] - Botox Injections: No Patient Name More Duran Michael . Age [age] year old Gastroparesis Consult [...] (normal range = 0-60%). (more content not included)...Normal [facility] HospitalPNon [id number] (GENSSP) MORE KINGSLEY JR. ([id number]) 1965 M LV Date Time Provider Department 04/10/25 JEROME DEL TORO GENSSP During your visit today, we recorded the [...] should he wish to reschedule his procedure. JeweltramaineMagi hanna Meghann 04/25/2025 10:09 AM Signed Post op cancelled Allergies As of Date: 04/10/2025 Noted Allergy Reaction VENOM-HONEY BEE 11/05/2020 10 - Anaphylaxis 14 - Other: See Comments 7 - Swelling Comments: Local swelling Date Reviewed: 04/10/2025 Reviewed by: Art Figueredo DO - Fully Assessed Reason for Visit: Care Coordination [3491] Cmt: Schedule procedure and follow up appt Primary Visit Diagnosis:Diabetic gastroparesis (HCC) [E11.43, K31.84] Order(s):EGD - THERAPEUTIC, EUS, OR TUBE INTERVENTIONS [GI2] Order #: [id number] FUTURE sucralfate (CARAFATE) 1 gram tabletTake 1 [...] Encounter Status:Closed by JEROME DEL TORO on 04/10/25NoDoctors [facility]bergpierre 06-54-1188PFX [Mass/Vol]2.7 mg/dLHigh<0.9[facility] HospitalComment on above:Order Comment: Specimen Type: BLOOD SPECIMEN Ordering Facility[facility] Address: [address] [place], [place] [address]Performed By: #### 1988-5, 2157-6 #### [facility] CLIA [id number] Omar method (Bld) [Velocity]on 11-26-5274TSX (Bld) [Velocity]66 mm/hHigh0-15[facility] HospitalComment on above:Order Comment: Specimen Type: BLOOD SPECIMEN Ordering Facility: [facility] Address: [address] [place], [place] [address]Performed By: #### LACPYR #### [facility] CLIA [id number] [address] [place] [address] [place] XPSWSDNCHK98 Ab Ser-aCncon 21-98-0536Xrgtfsnzu decarboxylase 65 Ab Qn (S)<5.0Normal<=5.0[facility] HospitalComment on above:Order Comment: Specimen Type: BLOOD SPECIMEN Ordering Facility: [facility] Address: [address] [place], [place] [address]Result Comment: Anti-glutamic acid decarboxylase antibody (GAD65) test usually in conjunction with another test such as IA-2 antibody is used as an aid in establishing the autoimmune nature of previously-diagnosed type I diabetes mellitus or in predicting of progression to type I diabetes mellitus in patients with certain autoimmune diseases including autoimmune gastritis among others. It is alsoused as an aid in diagnosis of stiff person syndrome and certain autoimmune nervous system diseases. Clinical correlation is required.Performed By: #### LACPYR #### [facility] CLIA [id number] [address] [place] [address] [place] AMERICAGlutamate decarboxylase 65 Ab Qn (S)on 08-80-7285HJAFLRCX ACID DECARBOXYLAS AB QUALITATIVENegativeNormal NegativeSresearch psychiatric center HospitalComment on above:Order Comment: Specimen Type: BLOOD SPECIMEN Ordering Facility: [facility] Address: [address] [place], [place] [address]Performed By: #### LACPYR #### [facility] CLIA [id number] [address] [place] [address] [place] UYRGEMBJaO1s (Bld)on 04-10-2025 Average glucose Estimated from glycated hemoglobin (Bld) [Mass/Vol]269 mg/dL NormalSometropolitan saint louis psychiatric center HospitalComment on above:Order Comment: Specimen Type: BLOOD SPECIMEN Ordering Facility: [facility] Address: [address] [place], [place] [address]Result Comment: eAG: (Estimated average glucose) is a calculated value from HgbA1c and is b2b sales representative of the average blood glucose level in the last 2-3 month period.Performed By: #### [id number] #### [facility] CLIA [id number] [address] [place] [address] [place] QGUOSXQIeC1l (Bld) [Mass fraction] 11.0 %High4.3-5.6[facility] HospitalComment on above:Order Comment: Specimen Type: BLOOD SPECIMEN Ordering Facility: [facility] Address: [address] [place], [place] [address]Result Comment: [place] Diabetes Association guidelines indicate that patients with HgbA1c in the range 5.7-6.4% are at increased risk for development of diabetes, and intervention by lifestyle modification may be beneficial. HgbA1c greater or equal to 6.5% is considered diagnostic of diabetes.Performed By: #### [id number] #### [facility] CLIA [id number] [address] [place] [address] [place] AMERICAIgA SerPl-mCncon 04-10-2025 IgA [Mass/Vol]608 mg/dKIavw94-127Vgxptyluajx HospitalComment on above:Order Comment: Specimen Type: BLOOD SPECIMEN Ordering Facility: [facility] Address: [address] [place], [place] [address]Performed By: #### 2465-3, 2458-8, 2472-9 #### [facility] CLIA [id number] [address] [place] [address] [place] AMERICAIgG SerPl-mCncon 04-10-2025 IgG [Mass/Vol]3158 mg/dGYnrs925-7577Szmyvkputcl HospitalComment on above:Order Comment: Specimen Type: BLOOD SPECIMEN Ordering Facility: [facility] Address: [address] [place], [place] [address]Performed By: #### LACPYR #### [facility] CLIA [id number] [address] [place] [address] [place] AMERICAIgM SerPl-mCncon 04-10-2025 IgM [Mass/Vol]110 mg/zXXjgsxr44-220Gwxsmpscyzz HospitalComment on above:Order Comment: Specimen Type: BLOOD SPECIMEN Ordering Facility: [facility] Address: [address] [place], [place] [address]Performed By: #### LACPYR #### [facility] CLIA [id number] [address] [place] [address] [place] AMERICALDH SerPl-cCncon 04-10-2025 LDH [Catalytic activity/Vol]159 U/QNtyawx507-096Rqxuzzhqhbb HospitalComment on above:Order Comment: Specimen Type: BLOOD SPECIMEN Ordering Facility: [facility] Address: [address] [place], [place] [address]Performed By: #### LACPYR #### [facility] CLIA [id number] [address] [place] [address] [place] AMERICAORGANIC ACIDS UR, QUANT W/CONSULTon 82052-Fluadlhfotthwcrz/Creatinine (U) [Molar ratio]<0.4Low 0.6-17.7[facility] HospitalComment on above:Order Comment: Specimen Type: URINE SPECIMEN Ordering Facility: [facility] Address: [address] [place], [place] [address]Performed By: #### [id number] #### [facility] CLIA [id number] [address] [place] [address] [place]2- Hydroxyisovalerate/Creatinine (U) [Molar ratio]0.1 umol/mmolCrNormal0.0-0.1 [facility] HospitalComment on above:Order Comment: Specimen Type: URINE SPECIMEN Ordering Facility: [facility] Address: [address] [place], [place] [address]Performed By: #### [id number] #### [facility] CLIA [id number] [address] [place] [address] [place] DBAXAZO1-Awazrk-5-hydroxybutyrate (C5-OH)/Creatinine (U) [Molar ratio]<0.9Pbcjwc6.0-1.3Sresearch psychiatric center HospitalComment on above:Order Comment: Specimen Type: URINE SPECIMEN Ordering Facility: [facility] Address: [address] [place], [place] [address]Performed By: #### [id number] #### [facility] CLIA [id number] [address] [place] [address] [place]2- Methylbutyrylglycine/Creatinine (U) [Molar ratio]<0.3Nmawwb2.0-0.4Sresearch psychiatric center HospitalComment on above:Order Comment: Specimen Type: URINE SPECIMEN Ordering Facility: [facility] Address: [address] [place], [place] [address]Performed By: #### [id number] #### [facility] CLIA [id number] [address] [place] [address] [place]2-Methylcitrate/Creatinine (U) [Molar ratio]<1.6Guaype9.0-13.9[facility] HospitalComment on above:Order Comment: Specimen Type: URINE SPECIMEN Ordering Facility: [facility] Address: [address] [place], [place] [address]Performed By: #### [id number] #### [facility] CLIA [id number] [address] [place] [address] [place]2-Oxoadipate/Creatinine (U) [Molar ratio]<1.1Duvzfa7.0-3.3Sresearch psychiatric center HospitalComment on above:Order Comment: Specimen Type: URINE SPECIMEN Ordering Facility: [facility] Address: [address] [place], [place] [address]Performed By: #### [id number] #### [facility] CLIA [id number] [address] [place] [address] [place]3- Hydroxyglutarate/Creatinine (U) [Molar ratio]0.0 umol/mmolCrNormal0.0-0.7 [facility] HospitalComment on above:Order Comment: Specimen Type: URINE SPECIMEN Ordering Facility[facility] Address: [address] [place], [place] [address]Performed By: #### [id number] #### [facility] CLIA [id number] [address] [place] [address] [place]3- Hydroxyisovalerate/Creatinine (U) [Molar ratio]2.9 umol/mmolCrNormal2.1-27.3 [facility] HospitalComment on above:Order Comment: Specimen Type: URINE SPECIMEN Ordering Facility: [facility] Address: [address] [place], [place] [address]Performed By: #### [id number] #### [facility] CLIA [id number] [address] [place] [address] [place]3- Methylcrotonylglycine/Creatinine (U) [Molar ratio]<0.3Normal<0.3SCameron Regional Medical CenterComment on above:Order Comment: Specimen Type: URINE SPECIMEN Ordering Facility[facility] Address: [address] [place], [place] [address]Performed By: #### [id number] #### [facility] CLIA [id number] [address] [place] [address] [place]3- Methylglutaconate/Creatinine (U) [Molar ratio]0.3 umol/mmolCrNormal0.0-2.0 [facility] HospitalComveterans affairs medical center on above:Order Comment: Specimen Type: URINE SPECIMEN Ordering Facility[facility] Address: [address] [place], [place] [address]Performed By: #### [id number] #### [facility] CLIA [id number] [address] [place] [address] [place]3-Methylglutarate/Creatinine (U) [Molar ratio]0.2 umol/mmolCrNormal0.0-0.6SoParkland Health CenterComment on above:Order Comment: Specimen Type: URINE SPECIMEN Ordering Facility[facility] Address: [address] [place], [place] [address]Performed By: #### [id number] #### [facility] CLIA [id number] [address] [place] [address] [place]4- Hydroxyphenylacetate/Creatinine (U) [Molar ratio]10.8 umol/mmolCrNormal5.7-147.5 [facility] HospitalComment on above:Order Comment: Specimen Type: URINE SPECIMEN Ordering Facility: [facility] Address: [address] [place], [place] [address]Performed By: #### [id number] #### [facility] CLIA [id number] [address] [place] [address] [place]4- Hydroxyphenyllactate/Creatinine (U) [Molar ratio]20.8 umol/mmolCrNormal1.3-23.0 [facility] HospitalComment on above:Order Comment: Specimen Type: URINE SPECIMEN Ordering Facility: [facility] Address: [address] [place], [place] [address]Performed By: #### [id number] #### [facility] CLIA [id number] [address] [place] [address] [place]4- Hydroxyphenylpyruvate/Creatinine (U) [Molar ratio]0.0 umol/mmolCrNormal<=0.0 [facility] HospitalComveterans affairs medical center on above:Order Comment: Specimen Type: URINE SPECIMEN Ordering Facility: [facility] Address: [address] [place], [place] [address]Performed By: #### [id number] #### [facility] CLIA [id number] [address] [place] [address] [place]5-Oxoproline/Creatinine (U) [Molar ratio]1.5 umol/mmolCrNormal0.4-3.1Sresearch psychiatric center HospitalComment on above: Order Comment: Specimen Type: URINE SPECIMEN Ordering Facility: [facility] Address: [address] [place], [place] [address]Performed By: #### [id number] #### [facility] CLIA [id number] [address] [place] [address] [place] AMERICAAcetoacetate/Creatinine (U) [Molar ratio]<0.9High0.0-0.5Sresearch psychiatric center HospitalComment on above:Order Comment: Specimen Type: URINE SPECIMEN Ordering Facility: [facility] Address: [address] [place], [place] [address]Performed By: #### [id number] #### [facility] CLIA [id number] [address] [place] [address] [place] AMERICAAconitate/Creatinine (U) [Molar ratio]19.3 umol/mmolCrNormal8.5-109.6SoParkland Health CenterComment on above:Order Comment: Specimen Type: URINE SPECIMEN Ordering Facility: [facility] Address: [address] [place], [place] [address]Performed By: #### [id number] #### [facility] CLIA [id number] [address] [place] [address] [place] AMERICAAdipate/Creatinine (U) [Molar ratio]1.3 umol/mmolCrNormal0.3-9.2Sresearch psychiatric center HospitalComment on above: Order Comment: Specimen Type: URINE SPECIMEN Ordering Facility: [facility] Address: [address] [place], [place] [address]Performed By: #### [id number] #### [facility] CLIA [id number] [address] [place] [address] [place] AMERICAAlpha hydroxybutyrate/Creatinine (U) [Molar ratio]1.0 umol/mmolCrNormal0.0-2.7 [facility] HospitalComment on above:Order Comment: Specimen Type: URINE SPECIMEN Ordering Facility: [facility] Address: [address] [place], [place] [address]Performed By: #### [id number] #### [facility] CLIA [id number] [address] [place] [address] [place] AMERICAAlpha ketoglutarate/Creatinine (U) [Molar ratio]6.2 umol/mmolCrNormal0.2-42.7 [facility] HospitalComment on above:Order Comment: Specimen Type: URINE SPECIMEN Ordering Facility: [facility] Address: [address] [place], [place] [address]Performed By: #### [id number] #### [facility] CLIA [id number] [address] [place] [address] [place] AMERICABenzoate/Creatinine (U) [Molar ratio]<12.0Ourfne3.0-14.6[facility] HospitalComment on above:Order Comment: Specimen Type: URINE SPECIMEN Ordering Facility: [facility] Address: [address] [place], [place] [address]Performed By: #### [id number] #### [facility] CLIA [id number] [address] [place] [address] [place] AMERICABeta hydroxybutyrate/Creatinine (U) [Molar ratio]<1.3Xyqvbg6.1-2.6[facility] HospitalComment on above:Order Comment: Specimen Type: URINE SPECIMEN Ordering Facility: [facility] Address: [address] [place], [place] [address]Performed By: #### [id number] #### [facility] CLIA [id number] [address] [place] [address] [place] AMERICAButyrylglycine/Creatinine (U) [Molar ratio]0.0 umol/mmolCrNormal0.0-0.7[facility] HospitalComment on above:Order Comment: Specimen Type: URINE SPECIMEN Ordering Facility: [facility] Address: [address] [place], [place] [address]Performed By: #### [id number] #### [facility] CLIA [id number] [address] [place] [address] [place] AMERICACreatinine (U) [Mass/Vol] 275.7 mg/kZQzdygq30.8-314.5Sresearch psychiatric center HospitalComment on above:Order Comment: Specimen Type: URINE SPECIMEN Ordering Facility[facility] Address: [address] [place], [place] [address]Performed By: #### [id number] #### [facility] CLIA [id number] [address] [place] [address] [place] AMERICAEthylmalonate/Creatinine (U) [Molar ratio]2.7 umol/mmolCrNormal0.5-6.2Sresearch psychiatric center HospitalComment on above: Order Comment: Specimen Type: URINE SPECIMEN Ordering Facility: [facility] Address: [address] [place], [place] [address]Performed By: #### [id number] #### [facility] CLIA [id number] [address] [place] [address] [place] AMERICAFumarate/Creatinine (U) [Molar ratio]1.9 umol/mmolCrNormal0.3-2.6[facility] HospitalComment on above: Order Comment: Specimen Type: URINE SPECIMEN Ordering Facility: [facility] Address: [address] [place], [place] [address]Performed By: #### [id number] #### [facility] CLIA [id number] [address] [place] [address] [place] AMERICAGlutarate/Creatinine (U) [Molar ratio]0.1 umol/mmolCrNormal0.0-1.4Sresearch psychiatric center HospitalComment on above: Order Comment: Specimen Type: URINE SPECIMEN Ordering Facility: [facility] Address: [address] [place], [place] [address]Performed By: #### [id number] #### [facility] CLIA [id number] [address] [place] [address] [place] AMERICAHexanoylglycine/Creatinine (U) [Molar ratio]<0.3Rrarqk0.0-0.1Sresearch psychiatric center HospitalComment on above:Order Comment: Specimen Type: URINE SPECIMEN Ordering Facility: [facility] Address: [address] [place], [place] [address]Performed By: #### [id number] #### [facility] CLIA [id number] [address] [place] [address] [place] AMERICAIsobutyrylglycine/Creatinine (U) [Molar ratio]<0.3Mlpekw7.0-1.2Sresearch psychiatric center HospitalComment on above:Order Comment: Specimen Type: URINE SPECIMEN Ordering Facility: [facility] Address: [address] [place], [place] [address]Performed By: #### [id number] #### [facility] CLIA [id number] [address] [place] [address] [place] AMERICAIsocitrate/Creatinine (U) [Molar ratio]62.1 umol/mmolCrNormal9.1-271.9[facility] HospitalComment on above:Order Comment: Specimen Type: URINE SPECIMEN Ordering Facility: [facility] Address: [address] [place], [place] [address]Performed By: #### [id number] #### [facility] CLIA [id number] [address] [place] [address] [place] AMERICALactate/Creatinine (U) [Molar ratio]23.5 umol/mmolCrNormal2.9-47.2Sresearch psychiatric center HospitalComment on above: Order Comment: Specimen Type: URINE SPECIMEN Ordering Facility: [facility] Address: [address] [place], [place] [address]Performed By: #### [id number] #### [facility] CLIA [id number] [address] [place] [address] [place] AMERICAMalate/Creatinine (U) [Molar ratio]0.8 umol/mmolCrNormal0.0-1.1Sresearch psychiatric center HospitalComment on above:Order Comment: Specimen Type: URINE SPECIMEN Ordering Facility: [facility] Address: [address] [place], [place] [address]Performed By: #### [id number] #### [facility] CLIA [id number] [address] [place] [address] [place] AMERICAMalonate/Creatinine (U) [Molar ratio]0.0 umol/mmolCrNormal0.0-0.1Sresearch psychiatric center HospitalComment on above: Order Comment: Specimen Type: URINE SPECIMEN Ordering Facility: [facility] Address: [address] [place], [place] [address]Performed By: #### [id number] #### [facility] CLIA [id number] [address] [place] [address] [place] AMERICAMethylmalonate/Creatinine (U) [Molar ratio]<0.2Hcogop1.0-0.6[facility] HospitalComment on above:Order Comment: Specimen Type: URINE SPECIMEN Ordering Facility: [facility] Address: [address] [place], [place] [address]Performed By: #### [id number] #### [facility] CLIA [id number] [address] [place] [address] [place] AMERICAMethylsuccinate/Creatinine (U) [Molar ratio]0.4 umol/mmolCrNormal0.0-1.4Sresearch psychiatric center HospitalComment on above:Order Comment: Specimen Type: URINE SPECIMEN Ordering Facility: [facility] Address: [address] [place], [place] [address]Performed By: #### [id number] #### [facility] CLIA [id number] [address] [place] [address] [place]ESE-acetylaspartate/Creatinine (U) [Molar ratio]0.8 umol/mmolCrNormal0.1-8.9[facility] HospitalComment on above:Order Comment: Specimen Type: URINE SPECIMEN Ordering Facility: [facility] Address: [address] [place], [place] [address]Performed By: #### [id number] #### [facility] CLIA [id number] [address] [place] [address] [place]ESE-acetyltyrosine/Creatinine (U) [Molar ratio]0.3 umol/mmolCrNormal0.0-1.2[facility] HospitalComment on above:Order Comment: Specimen Type: URINE SPECIMEN Ordering Facility: [facility] Address: [address] [place], [place] [address]Performed By: #### [id number] #### [facility] CLIA [id number] [address] [place] [address] [place] AMERICAOxalate/Creatinine (U) [Molar ratio]1.7 umol/mmolCrNormal0.7-12.4Sresearch psychiatric center HospitalComment on above: Order Comment: Specimen Type: URINE SPECIMEN Ordering Facility: [facility] Address: [address] [place], [place] [address]Performed By: #### [id number] #### [facility] CLIA [id number] [address] [place] [address] [place] AMERICAPyruvate/Creatinine (U) [Molar ratio]0.6 umol/mmolCrNormal0.1-2.6[facility] HospitalComment on above: Order Comment: Specimen Type: URINE SPECIMEN Ordering Facility: [facility] Address: [address] [place], [place] [address]Performed By: #### [id number] #### [facility] CLIA [id number] [address] [place], [place] [address] [place] AMERICASebacate (C8)/Creatinine (U) [Molar ratio]<3.4High0.0-0.3Sresearch psychiatric center HospitalComment on above:Order Comment: Specimen Type: URINE SPECIMEN Ordering Facility: [facility] Address: [address] [place], [place] [address]Performed By: #### [id number] #### [facility] CLIA [id number] [address] [place] [address] [place] AMERICASuberate/Creatinine (U) [Molar ratio]0.9 umol/mmolCrNormal0.0-7.4Sresearch psychiatric center HospitalComment on above: Order Comment: Specimen Type: URINE SPECIMEN Ordering Facility: [facility] Address: [address] [place], [place] [address]Performed By: #### [id number] #### [facility] CLIA [id number] [address] [place] [address] [place] AMERICASuberylglycine/Creatinine (U) [Molar ratio]0.0 umol/mmolCrNormal<=0.0[facility] HospitalComment on above: Order Comment: Specimen Type: URINE SPECIMEN Ordering Facility: [facility] Address: [address] [place], [place] [address]Performed By: #### [id number] #### [facility] CLIA [id number] [address] [place] [address] [place] AMERICASuccinate/Creatinine (U) [Molar ratio]0.7 umol/mmolCrNormal0.3-27.4S[facility] psychiatric center HospitalComment on above: Order Comment: Specimen Type: URINE SPECIMEN Ordering Facility: [facility] Address: [address] [place], [place] [address]Performed By: #### [id number] #### [facility] CLIA [id number] [address] [place] [address] [place] AMERICASuccinylacetone/Creatinine (U) [Molar ratio]<0.4Normal<0.4[facility] HospitalComment on above:Order Comment: Specimen Type: URINE SPECIMEN Ordering Facility: [facility] Address: [address] [place], [place] [address]Performed By: #### [id number] #### [facility] CLIA [id number] [address] [place], [place] [address]UOA CONSULTATIONNortheast Missouri Rural Health NetworkComment on above:Order Comment: Specimen Type: URINE SPECIMEN Ordering Facility: [facility] Address: [address] [place], [place] [address]Result Comment: This urine organic acid analysis shows [...] and its performance characteristics determined by the [facility]etabolism [facility]. It has not been cleared or approved by the US Food and Drug Administration. The FDA had determined that such clearance or approval is not necessary.Performed By: #### [id number] #### [facility] CLIA [id number] [address] [place], [place] [address]UO REVIEWReviewed by Forrest Gomez MD, Ph.D ([id number])[facility] on above:Order Comment: Specimen Type: URINE SPECIMEN Ordering Facility: [facility] Address: [address] [place], [place] [address]Performed By: #### [id number] #### [facility] CLIA [id number] [address] [place] [address] STATES BRONXCARE HEALTH SYSTEMUracil/Creatinine (U) [Molar ratio]<0.5Cfbblw6.0-5.1SCameron Regional Medical CenterComveterans affairs medical center on above:Order Comment: Specimen Type: URINE SPECIMEN Ordering Facility: [facility] Address: [address] [place], [place] [address]Performed By: #### [id number] #### [facility] CLIA [id number] [address] [place] [address] [place] AMERICAPYRUVATE+LACTATE BLon [id number] [Moles/Vol]2.1 mmol/LNormal0.5-2.2[facility] HospitalComment on above:Order Comment: Specimen Type: BLOOD SPECIMEN Ordering Facility: [facility] Address: [address] [place] [address] Comment: This test was developed, and its performance characteristics determined by the [facility] Department of Pathology and Laboratory Medicine. It has not been cleared or approved by[facility] FDA. The [facility] Department of Pathology and Laboratory Medicine is regulated under CLIA as qualified to perform high- complexity testing. This test is used for clinical purposes. It should not be regarded as investigational or for research.Performed By: #### [id number] #### [facility] CLIA [id number] [address] [place] [address] [place] AMERICAPyruvate (Bld) [Moles/Vol] 0.05 mmol/LNormal0.03-0.10[facility] HospitalComment on above:Order Comment: Specimen Type: BLOOD SPECIMEN Ordering Facility: [facility] Address: [address] [place] [address] Comment: This test was developed, and its performance characteristics determined by the [facility] Department of Pathology and Laboratory Medicine. It has not been cleared or approved bytr[facility] FDA. The [facility] Department of Pathology and Laboratory Medicine is regulated under CLIA as qualified to perform high- complexity testing. This test is used for clinical purposes. It should not be regarded as investigational or for research.Performed By: #### LACPYR #### [facility] CLIA [id number] [address] [place] [address] [place] AMERICAVOLTAGE GATED CA IGGon 04-10-2025P/Q-TYPE CALCIUM CHANNEL ANTIBODY0.0 pmol/LNormal0.0-24.5[facility] HospitalComment on above:Order Comment: Specimen Type: BLOOD SPECIMEN Ordering Facility: [facility] Address: [address] [place] [address]Vsyurp Comment: INTERPRETIVE INFORMATION: P/Q-Type Calcium Channel Antibody 0.0 to 24.5 pmol/L ............. Negative 24.6 to 45.6 pmol/L ............ Indeterminate 45.7 pmol/L or greater.......... Positive This test was developed and its performance characteristics determined by [employer]. It has not been cleared or approved by the US Food and Drug Administration. This test was performed in a CLIA certified laboratory and is intended for clinical purposes. Performed By: [facility] [address] [place] [address] [employer]: Warren Simmons MD, PhD CLIA Number: [id number] By: #### LACPYR #### [facility] CLIA [id number] [address] [place] [address] [place] AMERICAVOLTAGE-GATED POTASSIUM SZYMANSKI ABon 02-18-7889VNTMYXZ-GATED POTASSIUM CHANNEL AB, SER0 pmol/LNormal0-31 [facility] HospitalComment on above:Order Comment: Specimen Type: BLOOD SPECIMEN Ordering Facility: [facility] Address: [address] [place], [place] [address]Result Comment: INTERPRETIVE INFORMATION: Voltage-Gated Potassium Channel (VGKC) [...] developed and its performance characteristics determined by [employer]. It has not been cleared or approved by the US Food and Drug Administration. This test was performed in a CLIA certified laboratory and is intended for clinical purposes. Performed By: [facility] [address] [place] [address] [employer]: Warren Simmons MD, PhD CLIA Number: [id number] By: #### VGKCAB #### [facility] CLIA [id number] [address] [place], [place] [address]JRIFla [id number] (GASTSP) MORE KINGSLEY JR. ([id number]) 1965 M Date Time Provider Department 04/05/25 ART FIGUEREDO GASTSP During your visit today, we recorded the following information about you: Shena Dent RN 04/05/2025 3:14 PM Signed SPECIALTY CARE COORDINATION CHART REVIEW Contacted patient regarding upcoming appointment in the [facility]. No answer. Message and call back number provided. Patient identified for Care Coordination from: gastroparesis diagnosis Last PCP office visit: Visit date not found Next OV: 04/10/2025 CHRONIC DX: gastroparesis CARE COORDINATION OUTREACH PLAN: New patient call; awaiting call back Shena Dent RN April 05, 2025 Allergies As of Date: 04/05/2025 Noted Allergy Reaction VENOM-HONEY BEE 11/05/2020 10 - Anaphylaxis 14 - Other: See Comments 7 - Swelling Comments: Local swelling Date Reviewed: 10/24/2024 Reviewed by: Ludwin Brooks MA - Fully Assessed Reason for Visit: Care Coordination [3491] Cmt: Gastroparesis clinic: chart review; new patient call Problem List As Of Date: 04/05/2025 (None) Encounter Status:Closed by ORLINDarynSHENA on 04/05/25[facility] [id number] Vaughn 03/28/2025 4:19 PM Debridement Performed by: SCOTT Vaughn Authorized by: SCOTT Vaughn Consent: Consent obtained: Verbal and written Consent given by: Patient Risks discussed: Yes Debridement Details: Performed by: WEIGHT CLERK Type: Sharp Level: Subcutaneous Tissue, Devitalized tissue and other material debrided: Callus and subcutaneous tissue Anesthesia administration: topical Anesthesia: EMLA Total Surface Area Debrided cm^2: 10.37 Specimen Taken: None Instrument: Curette Amount of bleeding: Medium Bleeding Control: Pressure Response to treatment: Procedure was tolerated well Tissue Applied?: NoMANUALLY TRANSCRIBED RESULTSDoctors HospitalCBC AND AUTO DIFFon [id number] BASOPHIL0.2 X10E9/LNormal0.0-0.2ProMedSt. Joseph's Medical CenterComment on above:Performed By: #### CBCA, CMP #### [facility] ([id number]) [address] [place] [address]SADFEOGE NEUTROPHIL6.0 X10E9/LNormal1.5-6.6[facility] HospitalComment on above:Performed By: #### CBCA, CMP #### [facility] ([id number]) [address] [place] [address] 18897Pwkrwwwxm/100 WBC (Bld)2.4 %NormalProGonzales Memorial Hospital Comment on above:Performed By: #### CBCA, CMP #### [facility] ([id number]) [address] [place] [address] 539[address]Ubtedarwyqu (Bld) [#/Vol]0.3 10*3/uLNormal0.0-0.4[facility] HospitalComment on above:Performed By: #### CBCA, CMP #### [facility] ([id number]) [address] [place] [address] 72540Zfiazwqkbeo/100 WBC (Bld)3.4 %NormalMagruder Memorial Hospital Comment on above:Performed By: #### CBCA, CMP #### [facility] ([id number]) [address] [place] [address] 57017Xruqchllcgp distribution width (RBC) [Ratio]15.0 %Normal 11.5-15.0[facility] HospitalComment on above:Performed By: #### CBCA, CMP #### [facility] ([id number]) [address] [place] [address] 53173Nsfvuebeyg (Bld) [Volume fraction]40.0 %Ovfnry87-37FipEjfseqGonzales Memorial HospitalComment on above:Performed By: #### CBCA, CMP #### [facility] ([id number]) [address] [place] [address] 796[address]Jcwgqpnvls (Bld) [Mass/Vol]13.7 g/dXWgzicx23.0-17.0[facility] HospitalComment on above:Performed By: #### CBCA, CMP #### [facility] ([id number]) [address] [place] [address] 39637Lnvviijjket (Bld) [#/Vol]2.1 10*3/uLNormal1.0-3.5PFairfield Medical CenterComment on above:Performed By: #### CBCA, CMP #### [facility] ([id number]) [address] [place] [address] 38827Xonfyfawmvu/100 WBC (Bld)21.1 %NormalMagruder Memorial Hospital Comment on above:Performed By: #### CBCA, CMP #### [facility] ([id number]) [address] [place] [address] 36484CCN (RBC) [Entitic mass]28.8 ctPopynp07-97SmaPjasinMagruder Memorial HospitalComment on above:Performed By: #### CBCA, CMP #### [facility] ([id number]) [address] [place] [address] 11473QVTK (RBC) [Mass/Vol]34.3 g/pNFtdlzf36-90PafXofwlvMagruder Memorial HospitalComment on above:Performed By: #### CBCA, CMP #### [facility] ([id number]) [address] [place] [address] 36557KKI (RBC) [Entitic vol]84 aPHwviog21-966CzyJmebmjMagruder Memorial HospitalComment on above:Performed By: #### CBCA, CMP #### [facility] ([id number]) [address] [place] [address] 40610Wtklpyxod (Bld) [#/Vol]1.4 10*3/uLHigh0-0.9Mag[facility] Memorial HospitalComment on above:Performed By: #### CBCA, CMP #### [facility] ([id number]) [address] [place] [address] 63294Wjescnazt/100 WBC (Bld)13.4 %[facility] Comment on above:Performed By: #### CBCA, CMP #### [facility] ([id number]) [address] [place] [address] 98947Irrddzndzby/100 WBC (Bld)59.7 %[facility] Comment on above:Performed By: #### CBCA, CMP #### [facility] ([id number]) [address] [place] [address] 60429Tneqyryn mean volume (Bld) [Entitic vol]8.1 fLNormal7-12 [facility] HospitalComment on above:Performed By: #### CBCA, CMP #### [facility] ([id number]) [address] [place] [address] 53[address]Agcomtfxw (Bld) [#/Vol]334 10*3/jGNppuzj333-307VyvYperzp [facility]remont HospitalComment on above:Performed By: #### ARELY, CMP #### [facility] ([id number]) [address] [place] [address] 86396SST COUNT4.76 X10E12/LNormal4.10-5.70[facility] Comment on above:Performed By: #### ARELY, CMP #### [facility] ([id number]) [address] [place] [address] 15741ZNO (Bld) [#/Vol]10.1 10*3/uLNormal4.0-11.0ProGonzales Memorial HospitalComment on above:Performed By: #### ARELY, CMP #### [facility] ([id number]) [address] [place] [address] 03766JZEAHGXWTIHPJ METABOLIC PANELon 72-39-7755Iuoncut [Mass/Vol]2.9 g/dLLow3.2-5.3PFairfield Medical CenterComment on above:Performed By: #### ARELY, CMP #### [facility] ([id number]) [address] [place] [address], [place] [address]HLK [Catalytic activity/Vol]95 U/HZrlahg44-993DvwVbwxvlGonzales Memorial HospitalComment on above:Performed By: #### ARELY, CMP #### [facility] ([id number]) [address] [place] [address], [place] [address]JAM [Catalytic activity/Vol]15 U/LNormal0-40ProGonzales Memorial HospitalComment on above:Performed By: #### CBCRachana, CMP #### [facility] ([id number]) [address] [place] [address] 104[address]Yvcmd gap [Moles/Vol]7 mmol/LNormal5-15ProGonzales Memorial HospitalComment on above:Performed By: #### ARELY, CMP #### [facility] ([id number]) [address] [place] [address], [place] [address]BBC [Catalytic activity/Vol]18 U/LNormal0-41[facility] Memorial HospitalComment on above:Performed By: #### CBCRachana, CMP #### [facility] ([id number]) [address] [place] [address], [place] [address]Lvzpeodqv [Mass/Vol]0.9 mg/dLNormal0.3-1.2PFairfield Medical CenterComment on above:Performed By: #### ARELY, CMP #### [facility] ([id number]) [address] [place] [address], [place] [address]Aczcmym [Mass/Vol]8.3 mg/dLLow8.5-10.5PFairfield Medical CenterComment on above:Performed By: #### ARELY, CMP #### [facility] ([id number]) [address] [place] [address], [place] [address]Cwphhyqa [Moles/Vol]102 mmol/IXjjash06-000XqhUlbotwGonzales Memorial HospitalComment on above:Performed By: #### ARELY, CMP #### [facility] ([id number]) [address] [place] [address], [place] [address]WU9 [Moles/Vol]23 mmol/SAbdynq15-09HpjFcutxoFairfield Medical Center Comment on above:Performed By: #### CBCRachana, CMP #### [facility] ([id number]) [address] [place] [address], [place] [address]Opdbosnmat [Mass/Vol]1.20 mg/dLNormal0.70-1.20ProGonzales Memorial HospitalComment on above:Result Comment: METHOD TRACEABLE TO IDMS STANDARD Performed By: #### CBCRachana, CMP #### [facility] ([id number]) [address] [place] [address], [place] [address]PMZ/1.73 sq M.predicted among non-blacks MDRD (S/P/Bld) [Vol rate/Area]70 mL/min/{1.73_m2}Normal>59ProGonzales Memorial HospitalComment on above:Result Comment: Reported eGFR is based on the CKD-EPI 1 equation that does not use a race coefficient.Performed By: #### ARELY, CMP #### [facility] ([id number]) [address] [place] [address] 14[address]Xmgitpt [Mass/Vol]213 mg/fPDkqj38-68HubRnhmsbMagruder Memorial Hospital Comment on above:Performed By: #### ARELY, CMP #### [facility] ([id number]) [address] [place] [address]Renaesgms [Moles/Vol]3.6 mmol/LNormal3.5-5.0ProGonzales Memorial HospitalComment on above:Performed By: #### ARELY, CMP #### [facility] ([id number]) [address] [place] [address] 35[address]Szpduta [Mass/Vol]8.3 g/dLHigh6.0-8.0[facility] Comment on above:Performed By: #### ARELY, CMP #### [facility] ([id number]) [address] [place] [address] 26[address]Zhousf [Moles/Vol]132 mmol/FLhk324-770OieYiquwqGonzales Memorial HospitalComment on above:Performed By: #### ARELY, CMP #### [facility] ([id number]) [address] [place] [address] 66[address]Oebz nitrogen [Mass/Vol]18 mg/dLNormal5-23ProGonzales Memorial HospitalComment on above:Performed By: #### CBCA, CMP #### [facility] ([id number]) [address] [place] [address] 531[address]Tdnenag (P damon) [Moles/Vol]on 65-72-0882UABGIYU W/REFLEX1.3 mmol/LNormal0.4-2.0ProGonzales Memorial HospitalComment on above:Result Comment: Result did not trigger repeat Lactate, re-order if needed.Performed By: #### [id number] #### [facility] ([id number]) [address] [place] [address], FIRST FLOOR [place], [place] [address]EJJLLBEATIS WOUND CULTUREon 84-74-7568Oldrufit identified Aer cx Nom (Wound)GRAM STAIN 0 WHITE BLOOD CELLS/LPF 0 SQUAMOUS [...] S 0.25 F OXACILLIN R >=4 F TRIMETH/SULFAMETHOXAZOLE S <=.5/9.5 F VANCOMYCIN S 1 F DAPTOMYCIN S 0.5 F DOXYCYCLINE S 1 F [ S = SUSCEPTIBLE R = RESISTANT I = INTERMEDIATE S-DO = Susceptible-dose dependent NS = Non-suscceptible NO = No Interpretation ] Organism: STAPHYLOCOCCUS AUREUS Antibiotic Interpretation JEFFERY Status CEFAZOLIN R F CLINDAMYCIN S 0.25 F OXACILLIN R >=4 F TRIMETH/SULFAMETHOXAZOLE S <=.5/9.5 F VANCOMYCIN S 1 F DAPTOMYCIN S 0.25 F DOXYCYCLINE S <=0.5 FSusceptibleProGonzales Memorial HospitalComment on above: Performed By: #### 632-0 #### [facility] ([id number]) [address] [place], [place] [address]NB FOOT RT MIN 3 VWSon 75-43-6813BK FOOT RT MIN 3 VWSXR FOOT RT MIN 3 VWS XR FOOT RT MIN 3 VWS CLINICAL [...] by Du Hawthorne MD on 03/04/2025 10:59 AMNormalProMedica San Mateo Medical CenterCNPNon 94-43-2261LAAGWlsmkmqno (GASTMN) MORE KINGSLEY JR. 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 ([id number]) 1965 M Date Time Provider Department 06/22/24 ART FIGUEREDO GASTSP During your visit today, we recorded the following information about you: Deonna Patel 06/22/2024 6:55 AM Signed Gp ref and ges in scanned docs Needs registration Magi Benjamin 06/27/2024 8:50 AM Signed Left VM for patient to call office to update registration and go over records needed for review prior to scheduling. Mali Linton 06/27/2024 12:47 PM Signed Patient returning call to schedule Magi Benjamin 07/04/2024 11:26 AM Signed Left VM for patient to call office to update registration and go over records needed for review prior to scheduling. Mali Linton 07/04/2024 5:12 PM Signed Patient returning call to schedule Mali Linton 07/05/2024 8:20 AM Signed Received fax from [facility] asking if he has been scheduled. I [...] Tube? No Referring Provider: Art Hayes MD, 07/12/2024 10:57 AM Signed Dexcom or empties trial. [place] [facility]. EGG is in. Art Figueredo DO 07/12/2024 10:57 AM Signed Addended by: ART FIGUEREDO on: 07/12/2024 10:57 AM Modules accepted: Layla Silva RN 07/12/2024 12:16 PM Signed Screens positive for EMPTIES medically however, unsure if will be complaint with follow ups evaluate at [facility] ISAIAS Aparicio Rose M 07/13/2024 11:43 AM Signed Patient is scheduled at [facility] with GP Team Allergies As of Date: 06/22/2024 (Not on File) Date Reviewed: Never Reviewed Reason for Visit: Appointment [[id number]] Primary Visit Diagnosis:Gastroparesis [K31.84] Order(s):EGG (ELECTROGASTROGRAPHY) [25408BRX] Order #: [id number] Problem List As Of Date: 06/22/2024 (None) Encounter Status:Closed by DEONNA PATEL on 06/22/24NoSouthview Medical CenterGlucose Glucometer (dC) [Mass/Vol]Ordered By: Tracy Yono on 59-29-9275Toodcpm [Mass/Vol]234 mg/dLGuernsey Memorial HospitalComment on above:Random Glucose Reference Range is dependent on time and content of last meal. Glucose of more than 200 mg/dL in a nonstressed, ambulatory subject supports the diagnosis of Diabetes Mellitus.No Panel InformationOrdered By: Tracy Yoon on 10-97-4904Fgymxka Glucose CommentGlu2: cleaned German HospitalA1C HEMOGLOBINon 38-70-5866TeX9h (Bld) [Mass fraction]10.4 %Invisible Puppy Other Glucose - FINGER STICKon 61-93-7113Iafkvdy [Mass/Vol] 319 mg/dLNort Celsion Other HbA1c (Bld) [Mass fraction]on 27-57-2314Y0Z HEMOGLOBIN Invisible Puppy Other XR CHEST 1 Von 59-42-2228TP CHEST 1 VONE-VIEW CHEST RADIOGRAPH, 03/18/2023 8:32 PM EDT COMPARISON: Chest, 01/20/2021. CLINICAL HISTORY: Dizziness near syncope. Findings and impression: 1. Minimal linear atelectasis or scarring in the lingula. Lungs otherwise clear. 2. Borderline heart size. 3. No acute osseous abnormality. Electronically authenticated by: Mahad DIXON Date: 2023-03-18 22:26NoCleveland Clinic Avon HospitalBNPon 47-29-8960Ygobrylvyfa peptide B (Bld) [Mass/Vol]174.0 pg/mLNormal<=900.0The [facility] HospitalComment on above:Performed By: #### HSTROPN, CMP, BNP #### [facility] [address] [place] [address] Dr. Michael Allen AUTO DIFFon 84-44-5393KGIR #0.1 103/ulNormal0.0-0.1The [facility] HospitalComment on above:Performed By: #### CBC #### [facility] [address] [address] [address] Michael GonzalesBasophils/100 WBC (Bld)1.4 %Normal0.2-2.0The [facility] Comment on above:Performed By: #### CBC #### [facility] [address] [place] [address] Dr. Michael Upton #0.2 103/ulNormal0.0-0.7The [facility] HospitalComment on above: Performed By: #### CBC #### [facility] [address] [address] [address] Michael Adamsosinophils/100 WBC (Bld)2.3 %Normal0.9-7.0The [facility] Comment on above:Performed By: #### CBC #### [facility] [address] [address] [address] Michael Adamsrythrocyte distribution width (RBC) [Ratio]13.9 %Mnzbqy31.0-15.0 The [facility] HospitalComment on above:Performed By: #### CBC #### [facility] [address] [place] [address] Dr. Michael GonzalesHematocrit (Bld) [Volume fraction]43.6 %Mqwvha65.0-54.0The [facility] HospitalComment on above:Performed By: #### CBC #### [facility] [address] [place] [address] Dr. Michael GonzalesHemoglobin (Bld) [Mass/Vol]14.6 g/yYCprthz03.0-18.0The [facility] HospitalComment on above:Performed By: #### CBC #### [facility] [address] [place] [address] Dr. Michael Olosn #0.05 10e3/ulCritically high0.00-0.03The [facility] Comment on above:Performed By: #### CBC #### [facility] [address] [place] [address] Dr. Michael Olson %0.5 %Normal0.0-0.5The [facility] HospitalComment on above: Performed By: #### CBC #### [facility] [address] [place] [address] Dr. Michael GuzmánH #2.4 103/ulNormal1.2-3.8The [facility] HospitalComment on above:Performed By: #### CBC #### [facility] [address] [place] [address] Dr. Michael Bergeronmphocytes/100 WBC (Bld)26.3 %Zwdkst46.5-60.0The [facility] HospitalComment on above:Performed By: #### CBC #### [facility] [address] [address] [address] Michael Linares DIFF REQNONormalThe [facility] HospitalComment on above: Performed By: #### CBC #### [facility] [address] [address] [address] Michael Frank (RBC) [Entitic mass]28.7 ruKwxfev49.9-34.0The [facility] HospitalComment on above:Performed By: #### CBC #### [facility] [address] [address] [address] Michael Frank (RBC) [Mass/Vol]33.5 g/iWTvwnws05.9-35.2The [facility] HospitalComment on above:Performed By: #### CBC #### [facility] [address] [address] [address] Michael Frank (RBC) [Entitic vol]85.7 jXPmuvuv55.0-94.0The [facility] HospitalComment on above:Performed By: #### CBC #### [facility] [address] [address] [address] Michael Masters #1.3 103/ulCritically high0.3-0.8The [facility] Comment on above:Performed By: #### CBC #### [facility] [address] [address] [address] Michael Princeocytes/100 WBC (Bld)13.6 %Critically high1.7-12.0The [facility] HospitalComment on above:Performed By: #### CBC #### [facility] [address] [address] [address] Michael Edmond #5.2 103/ulNormal1.4-6.5The [facility] HospitalComment on above:Performed By: #### CBC #### [facility] [address] [address] [address] Michael Hermosilloutrophils/100 WBC (Bld)55.9 %Hhmfge14.0-75.0The [facility] HospitalComment on above:Performed By: #### CBC #### [facility] [address] [place] [address] Dr. Michael GonzalesPlatelet mean volume (Bld) [Entitic vol]10.9 fLNormal9.5-13.5The [facility] HospitalComment on above:Performed By: #### CBC #### [facility] [address] [place] [address] Dr. Michael GonzalesPLT219 103/iiPzojhq634-114Qzc [facility] HospitalComment on above: Performed By: #### CBC #### [facility] [address] [place] [address] Dr. Michael GonzalesRBC5.09 106/ulNormal4.70-6.10The [facility] HospitalComment on above:Performed By: #### CBC #### [facility] [address] [place] [address] Dr. Michael GonzalesWBC9.2 103/ulNormal4.0-11.0The [facility] HospitalComment on above: Performed By: #### CBC #### [facility] [address] [place] [address] Dr. Michael GonzalesMAGNESIUMon 56-46-3943Ayaadcpye [Mass/Vol]2.0 mg/dLNormal1.8-2.4 The [facility] HospitalComveterans affairs medical center on above:Performed By: #### MG #### [facility] [address] [place] [address] Dr. Michael GonzalesPROF 14(COMP METB)on 94-12-8018Urlyeli [Mass/Vol]3.3 g/dL Critically low3.4-5.0The [facility] HospitalComment on above:Performed By: #### HSTROPN, CMP, BNP #### [facility] [address] [place] [address] Dr. Michael GonzalesAlbumin/Globulin [Mass ratio]0.7 {ratio}NormalThe [facility] HospitalComment on above:Performed By: #### HSTROPN, CMP, BNP #### [facility] [address] [address] [address] Michael Ibanez [Catalytic activity/Vol]118 U/LCritically adiq51-190Bkh [facility] HospitalComment on above:Performed By: #### HSTROPN, CMP, BNP #### [facility] [address] [address] [address] Michael Rhoades [Catalytic activity/Vol]19 U/NQztegw33-86Bwi [facility] HospitalComment on above:Performed By: #### HSTROPN, CMP, BNP #### [facility] [address] [address] [address] Michael Carbajal gap [Moles/Vol]13.3 mmol/LNormalThe [facility] Comment on above:Performed By: #### HSTROPN, CMP, BNP #### [facility] [address] [place] [address] Dr. Michael Colon [Catalytic activity/Vol]24 U/TSlzbbl51-70Hrw [facility] HospitalComment on above:Performed By: #### HSTROPN, CMP, BNP #### [facility] [address] [address] [address] Michael GonzalesBilirubin [Mass/Vol]1.0 mg/dLNormal0.2-1.0The [facility] Comment on above:Performed By: #### HSTROPN, CMP, BNP #### [facility] [address] [address] [address] Michael GonzalesCalcium [Mass/Vol]8.7 mg/dLNormal8.5-10.1The [facility] Comment on above:Performed By: #### HSTROPN, CMP, BNP #### [facility] [address] [address] [address] Michael GonzalesChloride [Moles/Vol]101 mmol/BPlvnmm70-690Koq [facility] Comment on above:Performed By: #### HSTROPN, CMP, BNP #### [facility] [address] [address] [address] Michael GonzalesCO2 [Moles/Vol]22.0 mmol/IEuzuwx74.0-32.0The [facility] Comment on above:Performed By: #### HSTROPN, CMP, BNP #### [facility] [address] [place] [address] Dr. Michael GonzalesCreatinine [Mass/Vol]2.08 mg/dLCritically high0.70-1.30The [facility] HospitalComment on above:Performed By: #### HSTROPN, CMP, BNP #### [facility] [address] [place] [address] Dr. Rodriguez ChangEGFR-AF JHPQLJVS88 mL/min/1.78m5Ezmtvagwcr low>=60The [facility] HospitalComment on above:Performed By: #### HSTROPN, CMP, BNP #### [facility] [address] [place] [address] Dr. Rodriguez ChangEGFR-NON AF KINXALJQ77 mL/min/1.87r8Ohihtdtdqs low>=60The [facility] HospitalComment on above:Performed By: #### HSTROPN, CMP, BNP #### [facility] [address] [place] [address] Dr. Michael GonzalesGlobulin (S) [Mass/Vol]4.6 g/dLNormalThe [facility] HospitalComment on above:Performed By: #### HSTROPN, CMP, BNP #### [facility] [address] [place] [address] Dr. Michael GonzalesGlucose [Mass/Vol]319 mg/dLCritically gjwa37-703Yjk [facility]icothe Hospitalment on above:Performed By: #### HSTROPN, CMP, BNP #### [facility] [address] [place] [address] Dr. Michael GonzalesPotassium [Moles/Vol]4.3 mmol/LNormal3.5-5.1The [facility] Comment on above:Performed By: #### HSTROPN, CMP, BNP #### [facility] [address] [place] [address] Dr. Michael GonzalesProtein [Mass/Vol]7.9 g/dLNormal6.4-8.2The [facility] Comment on above:Performed By: #### HSTROPN, CMP, BNP #### [facility] [address] [place] [address] Dr. Michael GonzalesSodium [Moles/Vol]132 mmol/LCritically wnm027-963Lgm [facility] HospitalComment on above:Performed By: #### HSTROPN, CMP, BNP #### [facility] [address] [place] [address] Dr. Michael Hernandez nitrogen [Mass/Vol]33.0 mg/dLCritically high7.0-18.0The [facility] HospitalComment on above:Performed By: #### HSTROPN, CMP, BNP #### [facility] [address] [place] [address] Dr. Michael Hernandez nitrogen/Creatinine [Mass ratio]15.9 mg/mgNoCleveland Clinic Avon HospitalComment on above:Performed By: #### HSTROPN, CMP, BNP #### [facility] [address] [place] [address] Dr. Michael Galicia 54-34-8191FBS Coag (PPP) [Relative time]0.93 {INR} NormalFort Hamilton HospitalComment on above:Performed By: #### PTT, PT #### [facility] [address] [place] [address] Dr. Michael Robb GUIDELINESSEE BELOWHolzer HospitalComment on above:Result Comment: DESIRED INR: 2.0 - 3.0 CONDITIONS NOT LISTED BELOW 2.5 - 3.5 FOR PROSTHETIC HEART VALVE REPLACEMENT 2.5 - 3.5 RECURRENT THROMBOSIS Performed By: #### PTT, PT #### [facility] [address] [place] [address] Dr. Michael GonzalesPT Coag (PPP) [Time]9.9 sNormal9.0-11.6The [facility] Comment on above:Performed By: #### PTT, PT #### [facility] [address] [place] [address] Dr. Michael Baca 17-07-5546jJDM Coag (Bld) [Time]26.5 bXakuxv80.3-36.2The [facility] HospitalComment on above:Performed By: #### PTT, PT #### [facility] [address] [place], [place] [address] Dr. Michael Florez, HIGH SENSITIVITYon 57-83-1675VSTIII4.3 pg/mLNormal 4.0-76.1The [facility] HospitalComment on above:Result Comment: CUT-OFF POINTS HAVE BEEN ESTABLISHED BASED ON THE FOURTH UNIVERSAL DEFINITIONS OF MYOCARDIAL INFARCTION. THE UPPER REFERENCE LIMIT (URL) OF TROPONIN, DEFINED THE 99TH PERCENTILE OF cTnI DISTRIBUTION IN A REFERENCE POPULATION, HAS BEEN CONFIRMED THE DECISION THRESHOLD FOR IA DIAGNOSIS.Performed By: #### HSTROPN, CMP, BNP #### [facility] [address], [place] [address] Dr. Michael GonzalesXR FOOT LEFT 3+ VIEWS (STANDARD)on 55-35-7805TVKVVPBP/ Severe destructive changes at the midfoot and [...] Superimposed osteomyelitis is not excluded. Workstation ID: [id number]: XR FOOT LEFT 3+ VIEWS (STANDARD) 01/24/2021 1:27 pm HISTORY: ORDERING SYSTEM PROVIDED HISTORY: Subacute osteomyelitis of left foot (HCC), TECHNOLOGIST PROVIDED HISTORY: Illness/Other Reason for exam: non healing wound on top of foot Cancer History: Surgery, RadiationHistory: Encounter Type: Initial Additional signs and symptoms: pain ORDERING SYSTEM PROVIDED DIAGNOSIS CODES: M86.272 Subacute osteomyelitis of left foot (HCC) COMPARISON: 01/09/2021OhioHealthInterface, Rad In [employer]ji Speechq - 01/25/2021 2:00 PM EST EXAMINATION: [...] Superimposed osteomyelitis is not excluded. Workstation ID: [id number] FOOT LEFT 3+ VIEWS (STANDARD)on [id number] FOOT LEFT 3+ VIEWS (STANDARD)EXAMINATION: XR FOOT LEFT 3+ VIEWS (STANDARD) 01/24/2021 [...] ID: [id number] Dictated by: RAMONE HAWTHORNE on [facility] Jan 25, 2021 1:58:20 PM EST Transcribed by: RAMONE HAWTHORNE on [facility] Jan 25, 2021 1:58:20 PM EST Finalized by: RAMONE HAWTHORNE on [facility] Jan 25, 2021 1:58:20 PM [facility] on above:Order Comment: Injury/Trauma or Illness?:Illness/Other How long have you had these symptoms (acute/chronic)?:Acute Reason for exam?:non healing wound on top of foot History of cancer?: Surgeries, chemotherapy, or radiation?: Type of Exam?:Initial Additional signs and symptoms?:painOtheron 82-82-0601Gm acute osseous abnormality. Workstation ID: [id number]: XR ANKLE LEFT 3+ VIEWS (STANDARD); XR FOOT LEFT 3+ VIEWS (STANDARD) 01/09/2021 3:32 pm HISTORY: ORDERING SYSTEM PROVIDED HISTORY: chararianna, TECHNOLOGIST PROVIDED HISTORY: Illness/Other Reason for exam: charcot joint of ankle Cancer History: Surgery, RadiationHistory: Encounter Type: Initial Additional signs and symptoms: ORDERING SYSTEM PROVIDED DIAGNOSIS CODES: M14.679 Charcot's jointof ankle, unspecified laterality COMPARISON: 11/15/2020 FINDINGS: There is no acute displaced fracture or dislocation identified. Advanced midfoot collapse likely corresponds with underlying Charcot joint. Large inferior calcaneal spur is noted. Small distal Achilles enthesophyte noted. Vascular calcifications are present. Soft tissues are diffusely edematous with skin thickening.[facility] - 01/09/2021 4:13 PM EST EXAMINATION: XR ANKLE LEFT 3+ VIEWS (STANDARD); XR FOOT LEFT 3+ VIEWS (STANDARD) 01/09/2021 3:32 pm HISTORY: ORDERING SYSTEM PROVIDED HISTORY: chararianna, TECHNOLOGIST PROVIDED HISTORY: Illness/Other Reason for exam: [...] IMPRESSION: No acute osseous abnormality. Workstation ID: [id number] ANKLE LEFT 3+ VIEWS (STANDARD)on [id number] ANKLE LEFT 3+ VIEWS (STANDARD)EXAMINATION: XR ANKLE LEFT 3+ VIEWS (STANDARD); XR FOOT LEFT 3+ VIEWS (STANDARD) 01/09/2021 3:32 pm HISTORY: ORDERING SYSTEM PROVIDED HISTORY: charcot, TECHNOLOGIST PROVIDED HISTORY: Illness/Other Reason for exam: [...] LEGGETT on WedJan 09, 2021 4:10:37 PM ESTBethesda North HospitalComment on above:Order Comment: Injury/Trauma or Illness?:Illness/Other How long have you had these symptoms (acute/chronic)?:Acute Reason for exam?:charcot joint of ankle History of cancer?: Surgeries, chemotherapy, or radiation?: Type of Exam?:Initial Additional signs and symptoms?:XR FOOT LEFT 3+ VIEWS (STANDARD)on 52-72-2908ZK FOOT LEFT 3+ VIEWS (STANDARD)EXAMINATION: XR ANKLE LEFT 3+ VIEWS (STANDARD); XR [...] PM EST Finalized by: BRAEDEN LEGGETT on Barbara Jan 09, 2021 4:10:37 PM [facility]Comment on above:Order Comment: Injury/Trauma or Illness?:Illness/Other How long have you had these symptoms (acute/chronic)?:Acute Reason for exam?:open wound History of cancer?: Surgeries, chemotherapy, or radiation?: Type of Exam?:Initial Additional signs and symptoms?:Biopsyon 73-26-3473Dbtfnadia Cherry DPM 12/27/2020 11:33 PM Biopsy Timeout: Verbal Consent obtained?: Yes Consent given by:: Patient Procedure: Procedure Performed for: Bone Biopsy - Left foot Performed by: Physician Additional Procedure details:: A bone biopsy of the midfoot was obtained using a rongeur and sent to microbiology for culture and sensitivity Response to Treatment:: Procedure was tolerated wellOhioHealthBasic Metabolic Panelon 33-82-9946Vjqqx gap [Moles/Vol]9 mmol/LLow10 - 20 mmol/L OhioHealthCalcium [Mass/Vol]8.9 mg/dL8.4 - 10.2 mg/dLOhioHealthChloride [Moles/Vol]104 mmol/L98 - 108 mmol/LOhioHealthCreatinine [Mass/Vol]1.01 mg/dL 0.50 - 1.30OhioHealthGFR/1.73 sq M predicted among non-blacks MDRD (S/P/Bld) [Vol rate/Area]The eGFR should be used for monitoring renal function only and not for medication dosing.OhioHealthGFR/1.73 sq M.predicted CKD-EPI (S/P/Bld) [Vol rate/Area]84>=60 mL/min/1.73 q4ZjjqDkenhcVywmdbn [Mass/Vol]156 mg/wYFvsk42 - 99 mg/dLOhioHealthHCO3 [Moles/Vol]27 mmol/L21 - 32 mmol/LOhioHealth Interpretation and review of laboratory resultsAbnormalOhioHealthPotassium [Moles/Vol]3.8 mmol/L3.5 - 5.1 mmol/LOhioHealthSodium [Moles/Vol]136 mmol/L135 - 145 mmol/LOhioHealthUrea nitrogen [Mass/Vol]15 mg/dL8 - 25 mg/dLOhioHealthUrea nitrogen/Creatinine [Mass ratio]14.9 mg/mgOhioHealthCBCon 64-52-7278Xvbzvalyozo distribution width (RBC) [Entitic vol]15.4 %High11.6 - 14.8 %[facility] Hematocrit (Bld) [Volume fraction]34.1 %Low41 - 53 %OhioTrumbull Memorial HospitalHemoglobin (Bld) [Mass/Vol]10.3 g/dLLow13.5 - 17.5 g/dLOhioHealthInterpretation and review of laboratory resultsAbnormalOhioHealthMCH (RBC) [Entitic mass]25.5 pgLow26 - 34 pg OhioTrumbull Memorial HospitalMCHC (RBC) [Mass/Vol]30.2 g/dLLow31 - 37 g/dLOhioHealthMCV (RBC) [Entitic vol]84.4 fL80 - 100 fLOhioHealthNucleated RBC (Bld) [#/Vol]0.00 10*3/uL OhioHealthNucleated RBC/100 WBC (Bld) [Ratio]0.0 %OhioTrumbull Memorial HospitalPlatelet mean volume (Bld) [Entitic vol]10.0 fL9.4 - 12.4 fLOhioHealthPlatelets (Bld) [#/Vol]494 10*3/uLHighOhioHealthRBC (Bld) [#/Vol]4.04 10*6/uLLowOhioHealthWBC (Bld) [#/Vol] 6.26 10*3/uLOhioHealthMagnesium Levelon 67-93-5830Esjlvymyeuuwoe and review of laboratory resultsNormalOhioHealthMagnesium [Mass/Vol]1.8 mg/dL1.6 - 2.4 mg/dL [facility] HospitalPOC Glucoseon 47-08-5716Mkecyck [Mass/Vol]157 mg/xDMktj16 - 99 mg/dL OhioHealthInterpretation and review of laboratory resultsAbnormalOhioHealth Glucose [Mass/Vol]132 mg/lEJedx99 - 99 mg/dLOhioHealthInterpretation and review of laboratory resultsAbnormalOhioHealthGlucose [Mass/Vol]154 mg/qTTbet57 - 99 mg/dLOhioHealthInterpretation and review of laboratory resultsAbnormalOhioHealth Basic Metabolic Panelon 83-75-1325Yintb gap [Moles/Vol]8 mmol/LLow10 - 20 mmol/L OhioHealthCalcium [Mass/Vol]8.6 mg/dL8.4 - 10.2 mg/dLOhioHealthChloride [Moles/Vol]103 mmol/L98 - 108 mmol/LOhioHealthCreatinine [Mass/Vol]1.02 mg/dL 0.50 - 1.30OhioHealthGFR/1.73 sq M predicted among non-blacks MDRD (S/P/Bld) [Vol rate/Area]The eGFR should be used for monitoring renal function only and not for medication dosing.OhioHealthGFR/1.73 sq M.predicted CKD-EPI (S/P/Bld) [Vol rate/Area]83>=60 mL/min/1.73 b5VzkhCtfozjFyvglhx [Mass/Vol]151 mg/vGFpet06 - 99 mg/dLOhioHealthHCO3 [Moles/Vol]28 mmol/L21 - 32 mmol/LOhioHealthPotassium [Moles/Vol]3.7 mmol/L3.5 - 5.1 mmol/LOhioHealthSodium [Moles/Vol]135 mmol/L135 - 145 mmol/LOhioHealthUrea nitrogen [Mass/Vol]13 mg/dL8 - 25 mg/dLOhioHealthUrea nitrogen/Creatinine [Mass ratio]12.7 mg/mgOhioHealthCBCon 42-73-8187Ybqzcifrjbz distribution width (RBC) [Entitic vol]15.7 %High11.6 - 14.8 %[facility] Hematocrit (Bld) [Volume fraction]32.9 %Low41 - 53 %[facility]Tr[facility]ull [facility] HospitalHemoglobin (Bld) [Mass/Vol]9.9 g/dLLow13.5 - 17.5 g/dLOhioHealthInterpretation and review of laboratory resultsAbnormalOhioHealthMCH (RBC) [Entitic mass]25.6 pgLow26 - 34 pg OhioHealthMCHC (RBC) [Mass/Vol]30.1 g/dLLow31 - 37 g/dLOhioHealthMCV (RBC) [Entitic vol]85.0 fL80 - 100 fLOhioHealthNucleated RBC (Bld) [#/Vol]0.00 10*3/uL OhioHealthNucleated RBC/100 WBC (Bld) [Ratio]0.0 %OhioHealthPlatelet mean volume (Bld) [Entitic vol]10.2 fL9.4 - 12.4 fLOhioHealthPlatelets (Bld) [#/Vol]512 10*3/uLHighOhioHealthRBC (Bld) [#/Vol]3.87 10*6/uLLowOhioHealthWBC (Bld) [#/Vol] 7.74 10*3/uLOhioHealthCRP, Inflammationon 25-33-0285RWO [Mass/Vol]162.0 mg/LHigh <=10.0OhioHealthMagnesium Levelon 88-24-9535Wwgpvjuldcjnfu and review of laboratory resultsNormalOhioHealthMagnesium [Mass/Vol]1.7 mg/dL1.6 - 2.4 mg/dL OhioHealthOtheron 88-79-9470Cvksvkmegndzpb and review of laboratory results AbnormalOhioHealthPOC Glucoseon 86-38-8934Isqxwiq [Mass/Vol]121 mg/yKElxo31 - 99 mg/dLOhioHealthInterpretation and review of laboratory resultsAbnormal OhioHealthGlucose [Mass/Vol]117 mg/gFXuvd66 - 99 mg/dLOhioHealthInterpretation and review of laboratory resultsAbnormalOhioHealthGlucose [Mass/Vol]147 mg/dL High65 - 99 mg/dLOhioHealthInterpretation and review of laboratory results AbnormalOhioHealthGlucose [Mass/Vol]177 mg/oDHdze35 - 99 mg/dLOhioHealth Interpretation and review of laboratory resultsAbnormalOhioHealthSedimentation Rateon 06-88-4808QGB (Bld) [Velocity]116 mm/hHighOhioHealthInterpretation and review of laboratory resultsAbnormalOhioHealthTISSUE EXAMon 51-74-9718Kgek ReportSurgical Pathology Report Case: [id number] Authorizing Provider: Leanne Cherry DPM Collected: 11/18/2020 12:59 PM Ordering Location: [facility] Received: 11/18/2020 01:28 PM Pathologist: Boy Cortez MD Specimen: Foot, Left, Left Foot Bone [facility]Tr[facility] HospitalPathology report final diagnosis Narrative t5jhwYVuNODghUJ8QgCoSICqo3cht0BlzHCvdLKeZWsrsBPfgsQvvt93tDD3dV43TH3fQUWdVuT6SOQr bzM7Nwk1HZKdHUYqwIPx R513m7skd6rhpcGvjFD5uCveWDCnBPHqTYdhSMNiBaDvOLNBEzIiHXHex8KpM5C9ZHLbBFmbo0jdJVFd VJzws0GlOSwHUCWBKJ7D FS3cbYY3POpRQHHJI8nOiTJ3MdB3pJP0MP06IYDpDWXhdLXfWHqmX647Qq6vKRKlomVaeQTvvIQrUSdy eo85NSP0JNaiXeistEB0 NDcpGpqubE3aoBBCNNFRVgyWOsaqetHfON1FLRuWHfSPCP94Kx40HDHtUEMmcESfZKsuJ692CUTtfVBH e416z2ofbRRaNCwcAboa tFOdbgF6SBoMJAYUODmLLfUhXF6mULiXQWPLKuC2Xl57OYKmIYMwzFIkBDqwF433LNFcFGgjGNHkg5Dv Y1UmZgrmwvYsOBwyNDkc jWUqc156y0dgdOJuECubCqplkTZwqnP6BLjVSQDBWPoYBgKdJL7gVLwTD4ZTXyY1NbFvDWT6XVyqcMba EqqrnpVtyXOrWqJybM0a aYiacG8iHpeizfPbROKhxivjsZsaGJamdS24AyMeQkHqBNE0aGMxt4T0CI6njDMowQDkvc2yyFGjSMFy cvJztJEoCZBdG66YPrIA RVDMY23CCGQFGBJCK6HIH4xTKJJ8SjB0fIL1YvB4ZmsjFKWKDUNXKXlIRT7ICFYUGNIASU7MNqYnG1iQ RENBUkRfTUVUQURBVEFf SvSVPC6cIys8TEStkUPJz668K3kMYBNVLxSuJONGVDACCFVbMI2GWSTOOPCJHV7XYGUQC12EJMJVSCMY F6EGL5dWJITkv2VUsORu mII7JoNmBAM0QwqhFA0sUQzSN4DFR3lJPPSjEQMBXMTOBNFnZE3WRLsUWM0AHICfVUQGVRNELIDmNaYF TY1vTHgANR4BFZIuMOKS YVEHQLWvYL4OBWCAWX8DRBRMIBCYR88LJRXFIEMWP2JAA0pFMNYPNGIQHrUSTgQGVN3PUUUHIPZGMQ9F SkL7GsyeRfdctgRnjnghbsk report gross observation Narrative l4ruwICxGXNwdQD0TbQnWWUtd6svy1ByaYDmyYXbZLbugAEiklFynb90eOH9tC07NI9jHMDmKuS9JCCk hhM2Ruh3QPRvWVJctGMx T442c8ziz8vsfnMaeMN0cGbdLKIvPXOiAZszNHWnHfElUfHlUSd5PPHwiZ8tNi9peFFneY8kTQZsw0gb hmP4AHRaBiXwAr3seWos LVAbuCCNs70uEeofFICyy4WpW1G7KZXuZRrhf5heHHGnRZedd2YhRAhFBMAGTE6AMH8tqAB1EWiCWZGX K1vMbBL7HJUrnBS5RF29 LGJiWQHskYZbCHecJ134pLCsEJbbXrwwkDR4CQuxIjisiW4otEXEJUYNDwaASnhnhvMzUG7AZQGOTI1F pCT3AGPacVV3US86PXQp MUKcsEGxDZeqE007UAVtZAddLTPvEsPxFSQcHEfpLA74XDDxXO5hZOGddyJqqYFgk5IhxB5cNWSnTPK1 MNEzGnV4EEEcIwPzzAuw cz05FSZ6z8zkcXXwJOrpPeymhMFbnfX5RLmJHCFHXTqYDdCwAG9gUQjEW0JFCRiMZckcDWR9F5chxTC7 b5lezMAha2x2QBoyTHP7 tH40NDIcKClum3ipTEVjDNvwx4RmNWbDTWABOI5YWS0szOL3ENjCEHYIJKadJRS9Z9usjXP1i8ivcVIu m2s8OLhwHBM4zFwzfJRe oadesvHwDQKcY7WseFi8pJPeLJOovxWbERSamSOnWqalBKVft95hNRJIx6NuxGe2YSQ5Pr4cvAVkHKDq jrAqBKCbi9AnlOIlHTMw WgtxOEIyzMGmBOteEZVsGD2skTHrDGzfn6FxUFB7AP8xcoR2vV6lDAVbatCtpb8uQLMptKbrEPQmj9Dy OMwiAVprh1ErzSMlMJ0f RoJ0JIknOCZxlyAsNUN1VE36UHOJVC4xVzqmvRQjGE2OKHS1CYXpTJJoqwpnXGKsZNLlVbofKLTbpkUO ABVXAYpKO0UoZOBFKPGC DNTaRkAOKV9oUyXsOHY7OZ0rStU5QOCilFK0LRCNWPMPQUmRI7SvJGQCXPYNLVMjWB4DGVhOVEEBILCQ Z79FYMIGFYDRQ0KGH8tM AQjTYSPEREDKJ78WMIGMSBTFK1DGCAYSPELBZVeXPILZDq3NOPCVMYZZKX3BIYrCOvIpXLaMBW58eNOt xrQcVIpoIXI9GLz5KnIr oVTnx4WHWQufSGNmF7IaY9A3OPokMQT1Ape2FrZzqIQLKYQLHWfEUOTTGc9EOEGRTMAXWJ2BHgOoI1UK EF6KKi4IZJVDHOKJPS2D HLkEFdGlL3NFFI1OAh7PKLHUZGLVCE4ZAvRuXWQVE6UCToLYH9ftOSIJVZGIZAGbClOFMF6cUKLFAJ8O AJLCMFZIZ50KODFOMRMHI9AAGT2=HhepPznmmqFtyunoxqx report microscopic observation Narrative Other stain d3aajEAePKSqyNNmKsVoFTCvQGXto7vcWAFemHEwOhJuIjBxVnKzEgzhnBSjLBLjIoVju3kif396bXDi a7kcOQSnFbW0pLCoJHAw pZAkJ532VHZrMDkwm2kdm5FuBLNobMIpq1D1UJAVkooqxOy0tBwmS74fp7T0OzqcX2lgFBNoPBDsS4Hs NX6wHQSqDwu4XSB6ONX1 ANLvLKEyC5IqTR0fURYxzMUvPXd1j3rquUbpHXGcXKT1w3fyVToodoCvQY9ful2qfQa7r9lgszWaWUBd QCPiaAFPYNChL8XopXpa Xc3xtIp3nShkIfndGOD4Gtn6VL7pso49mzf9hGuiZMChccnlPfL1XSopIZVctboeWZo4AYphEXCumYN6 XQGfaZQyC9DxZCIcBW7i vhv1FVR2TLcuRRMpPrU6YKQfyMYiIBZxxHkbCHkzp320CQM4ZzPeWG8sO0Yoi3Z9sN5mmRPbKYCmiKXd YkYgZTNvwy9buPPrNRdn j4IsPEO2doQ6tLAdtTSmHYLnUX65Itbbg1YvBpvaJWQ7BCXzxpWdo8Pxq4hnZxTlsmOfK1bjM5RlWASu KFGuGFFfHjAbbpUio8Kx f0PhuKZxiRd4h5hcNWJgXCGyiVilo6ifSQW5QNAhW4Q1tFVgk8gdWSnmIJAdiHL4pfM5NLNiqOVjJ5Ey fA2uDVSiSE9tcho5k4no HLA9RBrbJLEgQhB5cxY8EIXtxXIqXOZliTrsBHvza290IHV0XhBdFCTqh2UpP5VstZtlK73crZivW10e YIAcfUlwgO0mjCrxiU2w WlGmWuJaVSmlsZmznSAxncisNRlwnjQmWNqtxyofIAYwJWcaC6mpXpOrYLLnhZqaQUseq7QtQNCdHAGe HlJtPMisly5sE97zaKGiFLkmzDhjQSXzx10fzYPdvXRfDo0lkPPrRzwkVUS7GfhcNydzswIXOSS AEROBIC CULTUREon 34-57-0976Sgcaoziw identified Aer cx Nom (Wound)Rare growth Staphylococcus aureusAbnormalOhioHealthComment on above:This Staphylococcus aureus is Methicillin SUSCEPTIBLE by PBP2a testing. Beta-lactams like Cefazolin and Nafcillin are superior to Vancomycin for treating mSsa.Interpretation and review of laboratory resultsAbnormalOhioHealthMicroscopic observation Gram stain Nom (Wound)No Organisms SeenOhioHealthMicroscopic observation Gram stain Nom (Wound)Many WBCOhioHealthMicroscopic observation Gram stain Nom (Wound)No Epithelial Cells SeenOhioHealthBasic Metabolic Panelon 25-91-9680Jpvrf gap [Moles/Vol]12 mmol/L10 - 20 mmol/LOhioHealthCalcium [Mass/Vol]8.8 mg/dL8.4 - 10.2 mg/dLOhioHealthChloride [Moles/Vol]103 mmol/L98 - 108 mmol/LOhioHealth Creatinine [Mass/Vol]0.92 mg/dL0.50 - 1.30OhioHealthGFR/1.73 sq M predicted among non-blacks MDRD (S/P/Bld) [Vol rate/Area]The eGFR should be used for monitoring renal function only and not for medication dosing.[facility].73 sq M.predicted CKD-EPI (S/P/Bld) [Vol rate/Area]94>=60 mL/min/1.73 q9CyogDbppyz Glucose [Mass/Vol]132 mg/aIIyeg80 - 99 mg/dLOhioHealthHCO3 [Moles/Vol]25 mmol/L 21 - 32 mmol/LOhioHealthInterpretation and review of laboratory resultsAbnormal OhioHealthPotassium [Moles/Vol]3.8 mmol/L3.5 - 5.1 mmol/LOhioHealthSodium [Moles/Vol]136 mmol/L135 - 145 mmol/LOhioHealthUrea nitrogen [Mass/Vol]12 mg/dL8 - 25 mg/dLOhioHealthUrea nitrogen/Creatinine [Mass ratio]13.0 mg/mgOhioHealth CBCon 34-13-5320Ynscbkrbrqw distribution width (RBC) [Entitic vol]15.7 %High11.6 - 14.8 %[facility] HospitalHematocrit (Bld) [Volume fraction]33.2 %Low41 - 53 %[facility] Hemoglobin (Bld) [Mass/Vol]10.2 g/dLLow13.5 - 17.5 g/dLOhioHealthInterpretation and review of laboratory resultsAbnormalOhioHealthMCH (RBC) [Entitic mass]25.5 pgLow26 - 34 pgOhioHealthMCHC (RBC) [Mass/Vol]30.7 g/dLLow31 - 37 g/dLOhioHealth MCV (RBC) [Entitic vol]83.0 fL80 - 100 fLOhioHealthNucleated RBC (Bld) [#/Vol] 0.00 10*3/uLOhioHealthNucleated RBC/100 WBC (Bld) [Ratio]0.0 %[facility]Tr[facility] HospitalPlatelet mean volume (Bld) [Entitic vol]9.9 fL9.4 - 12.4 fLOhioHealthPlatelets (Bld) [#/Vol]596 10*3/uLHighOhioHealthRBC (Bld) [#/Vol]4.00 10*6/uLLowOhioHealthWBC (Bld) [#/Vol]10.04 10*3/uLOhioHealthMagnesium Levelon 48-88-0590Xamrbrnmhtdtnl and review of laboratory resultsNormalOhioHealthMagnesium [Mass/Vol]1.7 mg/dL1.6 - 2.4 mg/dLOhioHealthPOC Glucoseon 14-13-0242Uabdnjn [Mass/Vol]174 mg/eMSwac33 - 99 mg/dLOhioHealthInterpretation and review of laboratory resultsAbnormal OhioHealthGlucose [Mass/Vol]180 mg/rQAfoe98 - 99 mg/dLOhioHealthInterpretation and review of laboratory resultsAbnormalOhioHealthGlucose [Mass/Vol]166 mg/dL High65 - 99 mg/dLOhioHealthInterpretation and review of laboratory results AbnormalOhioHealthGlucose [Mass/Vol]127 mg/uVLdcp76 - 99 mg/dLOhioHealth Interpretation and review of laboratory resultsAbnormalOhioHealthBasic Metabolic Panelon 24-81-0943Dbsao gap [Moles/Vol]10 mmol/L10 - 20 mmol/LOhioHealthCalcium [Mass/Vol]8.7 mg/dL8.4 - 10.2 mg/dLOhioHealthChloride [Moles/Vol]104 mmol/L98 - 108 mmol/LOhioHealthCreatinine [Mass/Vol]0.99 mg/dL0.50 - 1.30Ohio[facility] GFR/1.73 sq M predicted among non-blacks MDRD (S/P/Bld) [Vol rate/Area]The eGFR should be used for monitoring renal function only and not for medication dosing. [facility]GFR/1.73 sq M.predicted CKD-EPI (S/P/Bld) [Vol rate/Area]86>=60 mL/min/1.73 m6CzseZhixvpOwwvndy [Mass/Vol]136 mg/wJRwhz93 - 99 mg/dLOhioHealth HCO3 [Moles/Vol]27 mmol/L21 - 32 mmol/LOhioHealthInterpretation and review of laboratory resultsAbnormalOhioHealthPotassium [Moles/Vol]3.8 mmol/L3.5 - 5.1 mmol/LOhioHealthSodium [Moles/Vol]137 mmol/L135 - 145 mmol/LOhioHealthUrea nitrogen [Mass/Vol]12 mg/dL8 - 25 mg/dLOhioHealthUrea nitrogen/Creatinine [Mass ratio]12.1 mg/mgOhioHealthCBCon 99-90-3798Zpcgjlfjtge distribution width (RBC) [Entitic vol]15.9 %High11.6 - 14.8 %OhioHealthHematocrit (Bld) [Volume fraction] 36.5 %Low41 - 53 %OhioHealthHemoglobin (Bld) [Mass/Vol]10.9 g/dLLow13.5 - 17.5 g/dLOhioHealthInterpretation and review of laboratory resultsAbnormalOhioHealth MCH (RBC) [Entitic mass]25.6 pgLow26 - 34 pgOhioHealthMCHC (RBC) [Mass/Vol]29.9 g/dLLow31 - 37 g/dLOhioHealthMCV (RBC) [Entitic vol]85.9 fL80 - 100 fLOhioHealth Nucleated RBC (Bld) [#/Vol]0.00 10*3/uLOhioHealthNucleated RBC/100 WBC (Bld) [Ratio]0.0 %OhioHealthPlatelet mean volume (Bld) [Entitic vol]10.2 fL9.4 - 12.4 fLOhioHealthPlatelets (Bld) [#/Vol]581 10*3/uLHighOhioHealthRBC (Bld) [#/Vol] 4.25 10*6/uLLowOhioHealthWBC (Bld) [#/Vol]8.56 10*3/uLOhioHealthCRP, Inflammationon 86-20-1669FXA [Mass/Vol]132.0 mg/LHigh<=10.0OhioHealth Interpretation and review of laboratory resultsAbnormalOhioHealthMagnesium Level on 53-93-0084Uryczlzyrhokgw and review of laboratory resultsNormalOhioHealth Magnesium [Mass/Vol]1.8 mg/dL1.6 - 2.4 mg/dLOhioHealthPOC Glucoseon 11-18-2020 Glucose [Mass/Vol]175 mg/wIOkfw65 - 99 mg/dLOhioHealthInterpretation and review of laboratory resultsAbnormalOhioHealthGlucose [Mass/Vol]111 mg/aOFvnj37 - 99 mg/dLOhioHealthInterpretation and review of laboratory resultsAbnormalOhioHealth Glucose [Mass/Vol]133 mg/rJUvpq22 - 99 mg/dLOhioHealthInterpretation and review of laboratory resultsAbnormalOhioHealthGlucose [Mass/Vol]154 mg/lXPxxg76 - 99 mg/dLOhioHealthInterpretation and review of laboratory resultsAbnormalOhioHealth Sedimentation Rateon 22-26-7825TCB (Bld) [Velocity]110 mm/hHighOhioHealth Interpretation and review of laboratory resultsAbnormalOhioHealthAPTTon 84-09-3299bKPI Coag (Bld) [Time]Therapeutic range for APTT's is 68 - 104 seconds [facility] HospitalaPTT Coag (Bld) [Time]32 sOhioHealthInterpretation and review of laboratory resultsNormalOhioHealthBasic Metabolic Panelon 24-28-9771Dydxk gap [Moles/Vol]9 mmol/LLow10 - 20 mmol/LOhioHealthCalcium [Mass/Vol]8.6 mg/dL8.4 - 10.2 mg/dLOhioHealthChloride [Moles/Vol]105 mmol/L98 - 108 mmol/LOhioHealth Creatinine [Mass/Vol]0.94 mg/dL0.50 - 1.30OhioHealthGFR/1.73 sq M predicted among non-blacks MDRD (S/P/Bld) [Vol rate/Area]The eGFR should be used for monitoring renal function only and not for medication dosing.OhioHealthGFR/1.73 sq M.predicted CKD-EPI (S/P/Bld) [Vol rate/Area]92>=60 mL/min/1.73 a5CchjVfyouq Glucose [Mass/Vol]86 mg/dL65 - 99 mg/dLOhioHealthHCO3 [Moles/Vol]26 mmol/L21 - 32 mmol/LOhioHealthInterpretation and review of laboratory resultsAbnormal OhioHealthPotassium [Moles/Vol]3.9 mmol/L3.5 - 5.1 mmol/LOhioHealthSodium [Moles/Vol]136 mmol/L135 - 145 mmol/LOhioHealthUrea nitrogen [Mass/Vol]11 mg/dL8 - 25 mg/dLOhioHealthUrea nitrogen/Creatinine [Mass ratio]11.7 mg/mgOhioHealth CBC WITH AUTO DIFFERENTIALon 16-65-9796Qeaucxgmz (Bld) [#/Vol]0.07 10*3/uL OhioHealthBasophils/100 WBC (Bld)0.7 %OhioHealthEosinophils (Bld) [#/Vol]0.21 10*3/uLOhioHealthEosinophils/100 WBC (Bld)2.2 %[facility] HospitalErythrocyte distribution width (RBC) [Entitic vol]15.9 %High11.6 - 14.8 %[facility] Hematocrit (Bld) [Volume fraction]36.4 %Low41 - 53 %[facility] HospitalHemoglobin (Bld) [Mass/Vol]11.0 g/dLLow13.5 - 17.5 g/dLOhioHealthImmature granulocytes (Bld) [#/Vol]0.11 10*3/uLOhioHealthImmature granulocytes/100 WBC (Bld)1.20 %[facility] Comment on above:The IG parameter is the percentage of metamyelocytes, myelocytes and promyelocytes. An immature granulocyte count (IG) of 1% or more suggests the possibility of infection, an IG count of 3% is very likely related to an infection.Interpretation and review of laboratory resultsAbnormal OhioHealthLymphocytes (Bld) [#/Vol]2.31 10*3/uLOhioHealthLymphocytes/100 WBC (Bld)24.6 %OhioHealthMCH (RBC) [Entitic mass]25.8 pgLow26 - 34 pgOhioHealthMCHC (RBC) [Mass/Vol]30.2 g/dLLow31 - 37 g/dLOhioHealthMCV (RBC) [Entitic vol]85.4 fL 80 - 100 fLOhioHealthMonocytes (Bld) [#/Vol]0.92 10*3/uLHighOhioHealth Monocytes/100 WBC (Bld)9.8 %OhioHealthNeutrophils (Bld) [#/Vol]5.78 10*3/uL OhioHealthNeutrophils/100 WBC (Bld)61.5 %[facility] HospitalNucleated RBC (Bld) [#/Vol] 0.00 10*3/uLOhioHealthNucleated RBC/100 WBC (Bld) [Ratio]0.0 %OhioHealthPlatelet mean volume (Bld) [Entitic vol]10.2 fL9.4 - 12.4 fLOhioHealthPlatelets (Bld) [#/Vol]644 10*3/uLHighOhioHealthRBC (Bld) [#/Vol]4.26 10*6/uLLowOhioHealthWBC (Bld) [#/Vol]9.40 10*3/uLOhioHealthMagnesium Levelon 99-40-2458Fjujwbwfmrrxnr and review of laboratory resultsNormalOhioHealthMagnesium [Mass/Vol]1.8 mg/dL1.6 - 2.4 mg/dLOhioHealthPOC Glucoseon 28-62-9615Hwjsnxy [Mass/Vol]192 mg/uRRuwc74 - 99 mg/dLOhioHealthInterpretation and review of laboratory resultsAbnormal OhioHealthGlucose [Mass/Vol]132 mg/lYFthf09 - 99 mg/dLOhioHealthInterpretation and review of laboratory resultsAbnormalOhioHealthGlucose [Mass/Vol]148 mg/dL High65 - 99 mg/dLOhioHealthInterpretation and review of laboratory results AbnormalOhioHealthGlucose [Mass/Vol]94 mg/dL65 - 99 mg/dLOhioHealth Interpretation and review of laboratory resultsNormalOhioHealthBasic Metabolic Panelon 74-25-3115Kbmxn gap [Moles/Vol]8 mmol/LLow10 - 20 mmol/LOhioHealth Calcium [Mass/Vol]8.6 mg/dL8.4 - 10.2 mg/dLOhioHealthChloride [Moles/Vol]104 mmol/L98 - 108 mmol/LOhioHealthCreatinine [Mass/Vol]1.03 mg/dL0.50 - 1.30 [facility]HealthGFR/1.73 sq M predicted among non-blacks MDRD (S/P/Bld) [Vol rate/Area]The eGFR should be used for monitoring renal function only and not for medication dosing.OhioHealthGFR/1.73 sq M.predicted CKD-EPI (S/P/Bld) [Vol rate/Area]82>=60 mL/min/1.73 g2NajwWtntuhSdxlwnx [Mass/Vol]103 mg/jVBxzz00 - 99 mg/dLOhioHealthHCO3 [Moles/Vol]30 mmol/L21 - 32 mmol/LOhioHealthInterpretation and review of laboratory resultsAbnormalOhioHealthPotassium [Moles/Vol]3.7 mmol/L3.5 - 5.1 mmol/LOhioHealthSodium [Moles/Vol]138 mmol/L135 - 145 mmol/L OhioHealthUrea nitrogen [Mass/Vol]10 mg/dL8 - 25 mg/dLOhioHealthUrea nitrogen/Creatinine [Mass ratio]9.7 mg/mgLowOhioHealthBone Anaerobic Cultureon 73-97-2979Dymdlovb identified Anaer cx Nom (Unsp spec)No Anaerobic Growth at 5 DaysOhioHealthCBCon 45-88-7842Qfveqpbkcvu distribution width (RBC) [Entitic vol] 15.9 %High11.6 - 14.8 %OhioHealthHematocrit (Bld) [Volume fraction]35.7 %Low41 - 53 %OhioHealthHemoglobin (Bld) [Mass/Vol]10.8 g/dLLow13.5 - 17.5 g/dLOhioHealth Interpretation and review of laboratory resultsAbnormalOhioHealthMCH (RBC) [Entitic mass]25.5 pgLow26 - 34 pgOhioHealthMCHC (RBC) [Mass/Vol]30.3 g/dLLow31 - 37 g/dLOhioHealthMCV (RBC) [Entitic vol]84.2 fL80 - 100 fLOhioHealthNucleated RBC (Bld) [#/Vol]0.00 10*3/uLOhioHealthNucleated RBC/100 WBC (Bld) [Ratio]0.0 % OhioHealthPlatelet mean volume (Bld) [Entitic vol]10.2 fL9.4 - 12.4 fLOhioHealth Platelets (Bld) [#/Vol]658 10*3/uLHighOhioHealthRBC (Bld) [#/Vol]4.24 10*6/uLLow OhioHealthWBC (Bld) [#/Vol]9.26 10*3/uLOhioHealthMagnesium Levelon 11-16-2020 Interpretation and review of laboratory resultsNormalOhioHealthMagnesium [Mass/Vol]1.8 mg/dL1.6 - 2.4 mg/dLOhioHealthPOC Glucoseon 59-06-8807Qgqhdih [Mass/Vol]157 mg/xQAmqz60 - 99 mg/dLOhioHealthInterpretation and review of laboratory resultsAbnormalOhioHealthGlucose [Mass/Vol]105 mg/pBLcvy11 - 99 mg/dL OhioHealthInterpretation and review of laboratory resultsAbnormalOhioHealth Glucose [Mass/Vol]147 mg/rBZqnq23 - 99 mg/dLOhioHealthInterpretation and review of laboratory resultsAbnormalOhioHealthGlucose [Mass/Vol]100 mg/dLSivr59 - 99 mg/dLOhioHealthInterpretation and review of laboratory resultsAbnormalOhioHealth Sedimentation Rateon 49-10-7811OQS (Bld) [Velocity]113 mm/hHighOhioHealth Interpretation and review of laboratory resultsAbnormalOhioHealthBasic Metabolic Panelon 03-60-8346Wsduz gap [Moles/Vol]9 mmol/LLow10 - 20 mmol/LOhioHealth Calcium [Mass/Vol]8.4 mg/dL8.4 - 10.2 mg/dLOhioHealthChloride [Moles/Vol]106 mmol/L98 - 108 mmol/LOhioHealthCreatinine [Mass/Vol]0.89 mg/dL0.50 - 1.30 [facility]HealthGFR/1.73 sq M predicted among non-blacks MDRD (S/P/Bld) [Vol rate/Area]The eGFR should be used for monitoring renal function only and not for medication dosing.OhioHealthGFR/1.73 sq M.predicted CKD-EPI (S/P/Bld) [Vol rate/Area]97>=60 mL/min/1.73 e1GyskXxpbhcGcfenbz [Mass/Vol]139 mg/wYMtat07 - 99 mg/dLOhioHealthHCO3 [Moles/Vol]26 mmol/L21 - 32 mmol/LOhioHealthInterpretation and review of laboratory resultsAbnormalOhioHealthPotassium [Moles/Vol]3.7 mmol/L3.5 - 5.1 mmol/LOhioHealthSodium [Moles/Vol]137 mmol/L135 - 145 mmol/L OhioHealthUrea nitrogen [Mass/Vol]14 mg/dL8 - 25 mg/dLOhioHealthUrea nitrogen/Creatinine [Mass ratio]15.7 mg/mgOhioHealthBone Aerobic Cultureon 11-09-1625Uyzuwkhw identified Aer cx Nom (Bone)Rare growth Staphylococcus aureus AbnormalOhioHealthComment on above:This Staphylococcus aureus is Methicillin SUSCEPTIBLE by PBP2a testing. Beta-lactams like Cefazolinand Nafcillin are superior to Vancomycin for treating mSsa.Interpretation and review of laboratory resultsAbnormalOhioHealthMicroscopic observation Gram stain Nom (Unsp spec)No Organisms SeenOhioHealthMicroscopic observation Gram stain Nom (Unsp spec)Rare WBCOhioHealthMicroscopic observation Gram stain Nom (Unsp spec)No Epithelial Cells SeenOhioHealthCBCon 84-34-0545Xcfosopsxhp distribution width (RBC) [Entitic vol]15.9 %High11.6 - 14.8 %OhioHealthHematocrit (Bld) [Volume fraction] 34.1 %Low41 - 53 %OhioHealthHemoglobin (Bld) [Mass/Vol]10.5 g/dLLow13.5 - 17.5 g/dLOhioHealthInterpretation and review of laboratory resultsAbnormalOhioHealth MCH (RBC) [Entitic mass]25.9 pgLow26 - 34 pgOhioHealthMCHC (RBC) [Mass/Vol]30.8 g/dLLow31 - 37 g/dLOhioHealthMCV (RBC) [Entitic vol]84.2 fL80 - 100 fLOhioHealth Nucleated RBC (Bld) [#/Vol]0.00 10*3/uLOhioHealthNucleated RBC/100 WBC (Bld) [Ratio]0.0 %OhioHealthPlatelet mean volume (Bld) [Entitic vol]9.8 fL9.4 - 12.4 fLOhioHealthPlatelets (Bld) [#/Vol]633 10*3/uLHighOhioHealthRBC (Bld) [#/Vol] 4.05 10*6/uLLowOhioHealthWBC (Bld) [#/Vol]8.97 10*3/uLOhioHealthCT ABDOMEN PELVIS WITHOUT CONTRASTon 25-31-4436WP ABDOMEN PELVIS WITHOUT CONTRAST EXAMINATION: CT ABDOMEN PELVIS WITHOUT CONTRAST - 11/15/2020 COMPARISON: CT angiogram chest from [place] dated 11/05/2020. No prior CT imaging of [...] perinephric fluid collections or ascites. There is coltqvtl-eh-ftepk amount of retained stool in the proximal colon and gjqah-dk-unpxsvrw amount of retained stool in the distal [...] retained stool in the proximal colon and dtmqq-vt-onyiwneh amount of retained stool in the distal colon, which could be related to a mild colonic ileus. No evidence of a bowel obstruction. 3. Mild pelvic and inguinal lymphadenopathy that may be reactive. 4. Questionable sludge or gallstones in the gallbladder. No evidence of cholecystitis. 5. Trace pleural effusions and mild atelectasis in both lung bases. [employer] Workstation ID: [id number] Dictated by: AMNA PEÑA on WedNov 15, 2020 2:11:25 PM EST Transcribed by: LUTHER TREJO on WedNov 15, 2020 2:15:19 PM EST Finalized by: AMNA PEÑA on WedNov 15, 2020 2:30:12 PM ESTMartins Ferry HospitalComment on above:Order Comment: Injury/Trauma or Illness?:Illness/Other How long have you had these symptoms (acute/chronic)?:Acute Reason for exam?:non healing wound on top of foot History of cancer?: Surgeries, chemotherapy, or radiation?: Type of Exam?:Initial Additional signs and symptoms?:painCT Abdomen Pelvis Without Contraston 86-66-7246Qaygcrksq, Rad In [employer] Speechq - 11/15/2020 2:32 PM EST EXAMINATION: CT ABDOMEN PELVIS WITHOUT CONTRAST - 11/15/2020 COMPARISON: CT angiogram chest from [place] dated 11/05/2020. No prior CT imaging of [...] perinephric fluid collections or ascites. There is mgrijsde-gp-nblwr amount of retained stool in the proximal colon and fpdcn-uy-ibitnqdp amount of retained stool in the distal colon. No dilated bowel loops or evidence of a bowel obstruction. No free intraperitoneal gas or pneumatosis intestinalis is identified. No significant abnormalities identified in the liver, pancreas, adrenal glands, or spleen. There adriana small to moderate amount of intermediate density [...] retained stool in the proximal colon and blobc-dq-trtcdiey amount of retained stool in the distal colon, which could be related to a mild colonic ileus. No evidence of a bowel obstruction. 3. Mild pelvic and inguinal lymphadenopathy that may be reactive. 4. Questionable sludge or gallstones in the gallbladder. No evidence of cholecystitis. 5. Trace pleural effusions and mild atelectasis in both lung bases. [employer] Workstation ID: [id number]: CT ABDOMEN PELVIS WITHOUT CONTRAST - 11/15/2020 COMPARISON: CT angiogram chest from [place] dated 11/05/2020. No prior CT imaging of the abdomen and pelvis. ADDITIONAL HISTORY: Abdominalpain TECHNIQUE: Helical images were obtained through the abdomen and pelvis without IV contrast andwithout oral contrast. Multiplanar reconstructions were created. Dose reduction techniques were achieved by using automated exposure control and/or adjustment of mA and/or kV according to patient size and/or use of iterative reconstruction technique. FINDINGS: ABDOMEN CT: The heart is normal in size. The abdominal aorta normal in caliber. There is mild dependent and plate- like atelectasis in bothlower lobes. There are trace bilateral pleural effusions. There is a nonobstructing 3 mm calculus in the lower pole of the right kidney and a nonobstructing 1-2 mm calculus in the lower pole of the left kidney. No obstructing calculi or significant hydronephrosis is identified. No perinephric fluidcollections or ascites. There is fjxucmim-nk-ceovg amount of retained stool in the proximal colon and igeps-ul-mlmzwaqy amount of retained stool in the distal [...] sigmoid colon, extending into the left upper quadr ant. No evidence of a distal colitis or diverticulitis. There are an increased number of borderlineenlarged lymph nodes along the common iliac and [...] noted in the spine. No suspicious osseous lesions.[facility]1. Single bilateral punctate nonobstructing renal calculi. No evidence of an obstructive uropathy. 2 . Moderate-large amount of retained stool in the proximal colon and nelbs-km-pzuarqzw amount of retained stool in the distal colon, which could be related to a mild colonic ileus. No evidence of a bowel obstruction. 3. Mild pelvic and inguinal lymphadenopathy that may be reactive. 4. Questionable sludge or gallstones in the gallbladder. No evidence of cholecystitis. 5. Trace pleural effusions andmild atelectasis in both lung bases. [facility] Workstation ID: [id number] Levelon [id number] and review of laboratory resultsNormalOhioHealthMagnesium [Mass/Vol]1.9 mg/dL1.6 - 2.4 mg/dL [facility] Glucoseon [id number] [Mass/Vol]171 mg/aXKynu02 - 99 mg/dL OhioHealthInterpretation and review of laboratory resultsAbnormalOhioHealth Glucose [Mass/Vol]122 mg/uWLwqr61 - 99 mg/dLInioHealthInterpretation and review of laboratory resultsAbnormalOhioHealthGlucose [Mass/Vol]129 mg/fDBltr07 - 99 mg/dLOhioHealthInterpretation and review of laboratory resultsAbnormalOhioHealth Glucose [Mass/Vol]142 mg/hSLavy22 - 99 mg/dLOhioHealthInterpretation and review of laboratory resultsAbnormalOhioHealthXR FOOT LEFT 3+ VIEWS (STANDARD)on [id number] FOOT LEFT 3+ VIEWS (STANDARD)EXAMINATION: XR FOOT LEFT 3+ VIEWS (STANDARD) HISTORY: [...] REILLY on WedNov 15, 2020 7:35:52 PM [facility] ColumbusComment on above:Order Comment: Injury/Trauma or Illness?:Illness/Other How long have you had these symptoms (acute/chronic)?:Chronic Reason for exam?:NON HEALING WOND ANTERIOR FOOT History of cancer?: Surgeries, chemotherapy, or radiation?: Type of Exam?:Unknown Additional signs and symptoms?:DIABETESLarge ulceration overlying the dorsum of the foot. Degenerative changes. No definite bony erosion or fracture. Workstation ID: [id number]: XR FOOT LEFT 3+ VIEWS (STANDARD) HISTORY: [...] or fracture. There is a plantar calcaneal spur.[facility] - 11/15/2020 7:38 PM EST EXAMINATION: XR FOOT LEFT 3+ VIEWS (STANDARD) HISTORY: M, 55 y/o , ulcer left foot COMPARISON: MRI 11/06/2020 TECHNIQUE: Three views of the left foot are performed. FINDINGS: Extensive ulceration is seen overlying the dorsum of the foot. There is some gas within the soft tissues.There are degenerative changes within the midfoot. Severe degenerative changes are seen at the1st metatarsophalangeal joint. No definite bony erosion or fracture. There is a plantar calcaneal spur. IMPRESSION: Large ulceration overlying the dorsum of the foot. Degenerative changes. No definite bony erosion or fracture. Workstation ID: [id number] Metabolic Panelon 34-91-3697Wqljb gap [Moles/Vol]8 mmol/LLow10 - 20 mmol/LOhioHealthCalcium [Mass/Vol]7.9 mg/dLLow8.4 - 10.2 mg/dLOhioHealthChloride [Moles/Vol]105 mmol/L98 - 108 mmol/LOhioHealth Creatinine [Mass/Vol]0.97 mg/dL0.50 - 1.30OhioHealthGFR/1.73 sq M predicted among non-blacks MDRD (S/P/Bld) [Vol rate/Area]The eGFR should be used for monitoring renal function only and not for medication dosing.OhioHealthGFR/1.73 sq M.predicted CKD-EPI (S/P/Bld) [Vol rate/Area]88>=60 mL/min/1.73 k0CepvOifugl Glucose [Mass/Vol]153 mg/xLVnxv99 - 99 mg/dLOhioHealthHCO3 [Moles/Vol]26 mmol/L 21 - 32 mmol/LOhioHealthInterpretation and review of laboratory resultsAbnormal OhioHealthPotassium [Moles/Vol]4.0 mmol/L3.5 - 5.1 mmol/LOhioHealthSodium [Moles/Vol]135 mmol/L135 - 145 mmol/LOhioHealthUrea nitrogen [Mass/Vol]14 mg/dL8 - 25 mg/dLOhioHealthUrea nitrogen/Creatinine [Mass ratio]14.4 mg/mgOhioHealth CBCon 02-18-8319Iwuwnpxneyd distribution width (RBC) [Entitic vol]16.1 %High11.6 - 14.8 %OhioHealthHematocrit (Bld) [Volume fraction]33.3 %Low41 - 53 %[facility] Hemoglobin (Bld) [Mass/Vol]10.0 g/dLLow13.5 - 17.5 g/dLOhioHealthInterpretation and review of laboratory resultsAbnormalOhioHealthMCH (RBC) [Entitic mass]25.3 pgLow26 - 34 pgOhioHealthMCHC (RBC) [Mass/Vol]30.0 g/dLLow31 - 37 g/dLOhioHealth MCV (RBC) [Entitic vol]84.1 fL80 - 100 fLOhioHealthNucleated RBC (Bld) [#/Vol] 0.00 10*3/uLOhioHealthNucleated RBC/100 WBC (Bld) [Ratio]0.0 %OhioTrumbull [facility] HospitalPlatelet mean volume (Bld) [Entitic vol]10.4 fL9.4 - 12.4 fLOhioHealthPlatelets (Bld) [#/Vol]583 10*3/uLHighOhioHealthRBC (Bld) [#/Vol]3.96 10*6/uLLowOhioHealthWBC (Bld) [#/Vol]10.09 10*3/uLOhioHealthMagnesium Levelon 33-44-4399Occaypvhggwfzk and review of laboratory resultsNormalOhioHealthMagnesium [Mass/Vol]1.9 mg/dL1.6 - 2.4 mg/dLOhioHealthPOC Glucoseon 34-88-7126Rhqghrx [Mass/Vol]160 mg/tCIgfb86 - 99 mg/dLOhioHealthInterpretation and review of laboratory resultsAbnormal OhioHealthGlucose [Mass/Vol]151 mg/tKCabn49 - 99 mg/dLOhioHealthInterpretation and review of laboratory resultsAbnormalOhioHealthGlucose [Mass/Vol]142 mg/dL High65 - 99 mg/dLOhioHealthInterpretation and review of laboratory results AbnormalOhioHealthGlucose [Mass/Vol]138 mg/zZZonr20 - 99 mg/dLOhioHealth Interpretation and review of laboratory resultsAbnormalOhioHealthBasic Metabolic Panelon 23-61-8555Koqgd gap [Moles/Vol]8 mmol/LLow10 - 20 mmol/LOhioHealth Calcium [Mass/Vol]7.8 mg/dLLow8.4 - 10.2 mg/dLOhioHealthChloride [Moles/Vol]105 mmol/L98 - 108 mmol/LOhioHealthCreatinine [Mass/Vol]0.85 mg/dL0.50 - 1.30 OhioHealthGFR/1.73 sq M predicted among non-blacks MDRD (S/P/Bld) [Vol rate/Area]The eGFR should be used for monitoring renal function only and not for medication dosing.OhioHealthGFR/1.73 sq M.predicted CKD-EPI (S/P/Bld) [Vol rate/Area]99>=60 mL/min/1.73 u4HvkiTtjtvwDwyazrm [Mass/Vol]176 mg/kYDmxk70 - 99 mg/dLOhioHealthHCO3 [Moles/Vol]26 mmol/L21 - 32 mmol/LOhioHealthInterpretation and review of laboratory resultsAbnormalOhioHealthPotassium [Moles/Vol]4.0 mmol/L3.5 - 5.1 mmol/LOhioHealthSodium [Moles/Vol]135 mmol/L135 - 145 mmol/L OhioHealthUrea nitrogen [Mass/Vol]13 mg/dL8 - 25 mg/dLOhioHealthUrea nitrogen/Creatinine [Mass ratio]15.3 mg/mgOhioHealthCBCon 25-59-2721Xrpkuijilwk distribution width (RBC) [Entitic vol]16.0 %High11.6 - 14.8 %[facility] Hematocrit (Bld) [Volume fraction]32.7 %Low41 - 53 %OhioTrumbull Memorial HospitalHemoglobin (Bld) [Mass/Vol]10.1 g/dLLow13.5 - 17.5 g/dLOhioHealthInterpretation and review of laboratory resultsAbnormalOhioHealthMCH (RBC) [Entitic mass]25.6 pgLow26 - 34 pg OhioTrumbull Memorial HospitalMCHC (RBC) [Mass/Vol]30.9 g/dLLow31 - 37 g/dLOhioHealthMCV (RBC) [Entitic vol]82.8 fL80 - 100 fLOhioHealthNucleated RBC (Bld) [#/Vol]0.00 10*3/uL OhioHealthNucleated RBC/100 WBC (Bld) [Ratio]0.0 %[facility] HospitalPlatelet mean volume (Bld) [Entitic vol]10.4 fL9.4 - 12.4 fLOhioHealthPlatelets (Bld) [#/Vol]545 10*3/uLHighOhioHealthRBC (Bld) [#/Vol]3.95 10*6/uLLowOhioHealthWBC (Bld) [#/Vol] 10.51 10*3/uLOhioHealthMagnesium Levelon 51-90-0021Szolikqyuayxxa and review of laboratory resultsNormalOhioHealthMagnesium [Mass/Vol]2.0 mg/dL1.6 - 2.4 mg/dL [facility] Gastric Emptyingon 31-30-8022Dhfcjdi gastric emptying. Workstation ID: [id number], Rad In Who@ [facility] - 11/13/2020 1:36 PM EST EXAMINATION: MS GASTRIC EMPTYING HISTORY: Abdominal discomfort, nausea, vomiting [...] 0-10%). IMPRESSION: Delayed gastric emptying. Workstation ID: [id number]: NM GASTRIC EMPTYING HISTORY: Abdominal discomfort, nausea, [...] 78% (normal range = 30-90%). 2 HOURS: 59%(normal range = 0-60%). 4 HOURS: 17% (normal range = 0-10%).[facility] Glucoseon 10-37-0709Iypdrjt [Mass/Vol]189 mg/eWCbds77 - 99 mg/dLOhioHealthInterpretation and review of laboratory resultsAbnormalOhioHealth Glucose [Mass/Vol]186 mg/xNHncu64 - 99 mg/dLOhioHealthInterpretation and review of laboratory resultsAbnormalOhioHealthGlucose [Mass/Vol]221 mg/rCZcwh54 - 99 mg/dLOhioHealthInterpretation and review of laboratory resultsAbnormalOhioHealth Glucose [Mass/Vol]162 mg/sWBeas44 - 99 mg/dLOhioHealthInterpretation and review of laboratory resultsAbnormalOhioHealthTISSUE EXAMon 70-02-6775Bizl Report Surgical Pathology Report Case: [id number] Authorizing Provider: Leanne Cherry DPM Collected: 11/11/2020 04:44 PM Ordering Location: [facility] Peri Received: 11/12/2020 09:31 AM Pathologist: Joni Perez DO Specimen: Foot, Left OhioHealthPathology report final diagnosis Narrative o8tetFFqLZUpxLE0IuDzYHSio8qla5HzsDClxSVhZMakbWPlhnDpmv42iSZ0qF12BL7dKSDeTwU3QFBn gbR6Ynd0ETUhLFOocIYr Y439a4lsf8nwsrSwfDV9qQuuCSWdUUNyFFteLQAmMtPhCAXFMyHpMy1wSPRtbrGiaWZksTaaQVOmyAZH r697DPUfuPNnk6xvmpdm xRXiFMDkuaRggKy6VnBohXrqKoYpMQWnYWNjhOSuZN3eeVLokFbhwMh2jZGoHHCrflcgSOQpJBKxen0= [facility] gross observation Narrative j1djuTWbUMBltDA1PrVtONWhe9hle3BybUKeeTXtCZvzhODfbeTizc14gSZ8pV98AU0qJLZoYkR1ACLt itT1Ter8JJVmLBRkeFMo I070p8mtw6nsfkCotAB1fFldGWBkTOLuKVydLPLkVxIjGnCbUMg5RGZwzS9mMk8lzOXbjT4xAOPod7zh hnJ9RSNtBiMwRf4kfSyv FNSktDDMc74yGzxoHZTik9WxC3V3XOMkGThxs1xmXBHfTGhyb7ZmWCgFPIIEST0YQF4utRS5FAzNAEXP P2cMqXZ3GSVjwNT8VG68 ZKVnYBBmiHZyXLkyS718bYIaREyhHbqbdGU8NUuvBfyueI5wnPJTFDJQKgjTAizyzuAjZF0QNPDKAZ5V hMG0RRLinEU6UM14KIDw ZLMocYOqWQriV774ZTKzGUpaLUCoVrKtRHAoRGdyXD11SFTqGP2vVHHettVuaNEyj1YeiY2tQHPkGQG5 MRUoWrS0VBNcFpYtgGkv dl13ENH7l0vajRAdQNndSiswcJCborG2QZuEUPFYABhNHuFrJU6xKAuJD5YKFAuQWscqRCZ0Y1giwHW7 w6antJUzz6h8HDcnGOJ9 rB83XYHsYZeqs2nxVKAvGZbsu2IoTLhMAHSSPW1WRG9tlZM2XKcYYUFYZRhyTSD4N7aznFI9u7ozbVBw w0h9MHolPZX9mKwkcQMu obkqgdIiMPEdD8DtdJc8wJAyMXDjwzLzQFDmyCBtHqslDDOuk69iUUSLt6JarTh5ZLT7Fw5aoKDgECUl hdZvFLIma8AudRMcCKEd EmxlLSBdrICuGAiuAMOdP9NrhMXqSVvrx5TwQWG9QB9wcxU4qR6zVLPwhqOipu6pENUmfBqoBFFeg2Wm ZIgeOVwmb3CafJYdBU0j TyY1VLomLRJanfNhZQT0GA16UXACQK1eGzhkhCQlKB4UVHU8ZXHpMGisUNVixAXnNLLaS16KMoXPFGSB G20CGQRCEMEDT9IZV8qV TAX4OVEuxUB1RG2qSFS1L0fbPOWtH85OOjYSPKFTT97BVQIUDKKKU6AQLLOIVFiQC2WWJL2NOKIQGRRX IX3TZCuCEaNQGFxAE2JL WT2BDDDXUZSIDL5DCnBrYYsMX0DXL8kGEHLjGXLLETLQIWHoDpGSHG0wZRi0WDMjmV2zDHRpMJV9KwAp YDU5NmiqKS5pJYfWNNNe mpSdV9ejTAdznNY8UrEsPRG3NgyvXK2bGUxQC0EAG1aEDOOeIMVYYRWTJFZrXA3MRBsBAO5JYCEjTEIU UGISIVOsOdDTFV1mJGnM DJ3QDXCxHZHBJZGDHEVuQD3IDMSUZZ1MIWDVUNKJB47KZEQIYNNIJ8RSP0dFXPMDEYMFMeSGPvAMGW2X EZZCSEXLUJ8HFfM7RxgbTpywivXkkckfxtv report microscopic observation Narrative Other stain u6casDPrTKQouJNzBhSgQROtNVArl1rjCAYwrMJjIwEsQhVqTjWrZnqetTDgYVKxFvTzs7mbd226zQTa q9kfMWYwQzX8lQVsCSTn mYBfF662NIBpEXubv6qdi3DcBRVbeZRci8V7HNRWvezfqZc1iItbL05ii4M6NzcqF3ewOSMhAREmP7Pp BR8bOQZrPgl9DVR5YUC3 FHEbVPMdH4JuEX3xVJTibDRdKGm1a2kyqCruLEVzTTY7b2maKDrpfkHbVT7yhf3lePm0p9uysqPgJUPy LHZqmUBAOCAsN5VclEan Oa9zpYu3xFtoPsbxHAA8Tso4JH6hnq42teq8zHwhWPVkwpkpDeR6VOkbMGYnhzuuOAa5TSecGVOyaAT1 QNRvwURpA4PgFVDlHJ3d dfw6LUY2CSulUKJzSpX6KSFgiCKmTLZicLmtWSbmg843JQB5HaQdLY2aR4Jql8L7cD7lsINzAILvdCUh JzNgQOPmlg4mcIVbPSkp q6RzANF5cyY4iDAbkUGgPNSpJO94Yeztw0TuCnvwDLL2DYFjdhVcy3Itt0jcZeItdfWkX4boW3PdCFGp YEJbRXGkSiFsffTur2Db l5OqwXNhfGd1g3mcHNDaQAFubNqic4mtOQR6UKYvS1D4zXNeh0bpTCicURPmdQV4jzA4LUPkjVRrL3Lr zZ4mTEIcLY3megg1o8qq REX1CZveKHZxVgZ3vvX7GYFmvRCvBLCapQmpSOxqa805YZY4WzAdHZTso9QmX0BjbZsbC01aaJlwI73k DODspRpfmZ8koGygbV3w LdXvEiReYNqwoEifpCTlowvyWBqsfkEcLRtvkvjdZCWpVNxdS4auZfBiBTJqjKwzMFpjq0RnMNZsORLr PlBqYSynsu4sE89gcSHoHAqtlSjnPMTqo97dpELtrXIcWh9dbKPfOszbVLR3QiahGtbnjkMQ DOPPLER SEGMENTAL ARTERIAL LEGS BILATERALon 86-31-7846CR DOPPLER SEGMENTAL ARTERIAL LEGS BILATERALPatient Info Name: MORE KINGSLEY Age: 55 years : 1965 Gender: Male Exam Date: 11/13/2020 8:13 AM Patient Status: Inpatient Switch Foreman: Rafat Tony RVT Indications I73.9 - Peripheral vascular disease, unspecified Procedure Description 78481 Complete bilateral noninvasive physiologic studies of upper [...] by ABILIO Gutiérrez DO on 11/13/2020 03:26 [facility]ch[facility] - 11/13/2020 3:27 PM EST Patient Info Name: MORE KINGSLEY Age: 55 years : 1965 Gender: Male Exam Date: 11/13/2020 8:13 AM Patient Status: Inpatient Switch Foreman: Rafat Tony RVT Indications I73.9 - Peripheral vascular disease, unspecified Procedure Description 65328 Complete bilateral noninvasive physiologic studies of upper [...] by ABILIO Gutiérrez DO on 11/13/2020 03:26 PMOhioHealthPatient Info Name: MORE KINGSLEY Age: 55 years : 1965 Gender: Male Exam Date: 11/13/2020 8:13 AM Patient Status: Inpatient Switch Foreman: Rafat Tony RVT Indications I73.9 - Peripheral vascular disease, unspecified Procedure Description 01998 Complete bilateral noninvasive physiologic studies of upper or lower extremity arteries with bidirectional Doppler/PVR waveform analysis at 3 or more levels. Conclusions * Right. * Right ankle brachial index is not accurate due to vessel wall calcification. Based on waveform criteria, this is anormal resting arterial evaluation. * No evidence of small vessel disease at the transmetatarsal level in the right foot. * Right toe brachial index not obtained due to amputation. * Left. * Left ankle brachial index is not accurate due to vessel wall calcification. Based on waveform criteria, thisis a normal resting arterial evaluation. * Mild small vessel disease at the transmetatarsal level in the left foot. * Left toe brachial index is abnormal. Recommendations * This study has inaccurateABI's bilaterally due to elevated segmental pressures as seen with arterial calcification. Doppler and PVR waveforms show satisfactory amplitude and patterns to the ankles, suggesting normal perfusion. Clinical correlation advised. . Doppler Rt Common Femoral: Triphasic Rt Popliteal: Triphasic Rt Po sterior Tibial: Triphasic Rt Dorsalis Pedis: Triphasic Lt [...] ABILIO Gutiérrez DO on 11/13/2020 03:26 PM [facility] Metabolic Panelon 77-20-2386Gdrhi gap [Moles/Vol]10 mmol/L10 - 20 mmol/LOhioHealthCalcium [Mass/Vol]8.0 mg/dLLow8.4 - 10.2 mg/dLOhioHealth Chloride [Moles/Vol]104 mmol/L98 - 108 mmol/LOhioHealthCreatinine [Mass/Vol]0.84 mg/dL0.50 - 1.30OhioHealthGFR/1.73 sq M predicted among non-blacks MDRD (S/P/Bld) [Vol rate/Area]The eGFR should be used for monitoring renal function only and not for medication dosing.[facility] CarolinaHealthGFR/1.73 sq M.predicted CKD-EPI (S/P/Bld) [Vol rate/Area]99>=60 mL/min/1.73 u7OivhDifyoxYrhhyxl [Mass/Vol]86 mg/dL65 - 99 mg/dLOhioHealthHCO3 [Moles/Vol]25 mmol/L21 - 32 mmol/LOhioHealth Interpretation and review of laboratory resultsAbnormalOhioHealthPotassium [Moles/Vol]4.1 mmol/L3.5 - 5.1 mmol/LOhioHealthSodium [Moles/Vol]135 mmol/L135 - 145 mmol/LOhioHealthUrea nitrogen [Mass/Vol]10 mg/dL8 - 25 mg/dLOhioHealthUrea nitrogen/Creatinine [Mass ratio]11.9 mg/mgOhioHealthCBCon 12-97-1800Kkadujvwohh distribution width (RBC) [Entitic vol]16.4 %High11.6 - 14.8 %[facility] Hematocrit (Bld) [Volume fraction]32.7 %Low41 - 53 %OhioHealthHemoglobin (Bld) [Mass/Vol]10.1 g/dLLow13.5 - 17.5 g/dLOhioHealthInterpretation and review of laboratory resultsAbnormalOhioHealthMCH (RBC) [Entitic mass]25.7 pgLow26 - 34 pg OhioHealthMCHC (RBC) [Mass/Vol]30.9 g/dLLow31 - 37 g/dLOhioHealthMCV (RBC) [Entitic vol]83.2 fL80 - 100 fLOhioHealthNucleated RBC (Bld) [#/Vol]0.00 10*3/uL OhioHealthNucleated RBC/100 WBC (Bld) [Ratio]0.0 %OhioHealthPlatelet mean volume (Bld) [Entitic vol]10.4 fL9.4 - 12.4 fLOhioHealthPlatelets (Bld) [#/Vol]497 10*3/uLHighOhioHealthRBC (Bld) [#/Vol]3.93 10*6/uLLowOhioHealthWBC (Bld) [#/Vol] 13.36 10*3/uLHighOhioHealthCOVID-19/INFLUENZA A,B MOLECULARon 03-46-6080PFUIV- 19/INFLUENZA A,B NYKLKVBIHZFGR-BSS-1 (JESSIKA): Not Detected INFLUENZA A (JESSIKA): Not Detected INFLUENZA B (JESSIKA): Not DetectedNormalProMedica Toledo HospitalComment on above:Order Comment: This test was performed under the [...] at the following links: For Healthcare Providers: https://www.fda.gov/media/727432/download For Patients: https://www.fda.gov/media/273933/downloadPerformed By: #### [id number] #### [facility] [address] [address] Warren Barnett M.D. [id number]-62/Influenza A,B Molecularon 91-33-1652Gxklzkeeo ANot Detected Not DetectedOhioHealthInfluenza BNot DetectedNot DetectedOhioHealth Interpretation and review of laboratory kwhadzgSoqmvmIsjiDyjmtaVVSV-PgA-9Ocb DetectedNot DetectedOhioHealthThis test was performed under the FDA's Emergency [...] be found at the following links: For HealthcareProviders: https://www.fda.gov/media/157071/download For Patients: https://www.fda.gov/media/388727/downloadOhioHealthMagnesium Levelon 11-12-2020 Interpretation and review of laboratory resultsNormalOhioHealthMagnesium [Mass/Vol]1.8 mg/dL1.6 - 2.4 mg/dLOhioHealthNM GASTRIC EMPTYINGon 39-76-3632KX GASTRIC EMPTYINGEXAMINATION: NM GASTRIC EMPTYING HISTORY: Abdominal discomfort, nausea, [...] NOE on WedNov 13, 2020 1:34:26 PM [facility] CenterComment on above:Order Comment: Injury/Trauma or Illness?:Illness/Other How long have you had these symptoms (acute/chronic)?:Chronic a few years now Reason for exam?:Recurrent nausea and vomiting and abdominal discomfort uncontrolled diabetes Type of Exam?:Ongoing Additional signs and symptoms?:nausea and vomiting almost daily for a few years now,POC Glucoseon 76-14-5608Jawsvtd [Mass/Vol]159 mg/lRDfrb09 - 99 mg/dL OhioHealthInterpretation and review of laboratory resultsAbnormalOhioHealth Glucose [Mass/Vol]161 mg/lXCjfz98 - 99 mg/dLOhioHealthInterpretation and review of laboratory resultsAbnormalOhioHealthGlucose [Mass/Vol]153 mg/fGQxsb77 - 99 mg/dLOhioHealthInterpretation and review of laboratory resultsAbnormalOhioHealth Glucose [Mass/Vol]71 mg/dL65 - 99 mg/dLOhioHealthInterpretation and review of laboratory resultsNormalOhioHealthBasic Metabolic Panelon 23-13-1416Nvhqe gap [Moles/Vol]9 mmol/LLow10 - 20 mmol/LOhioHealthCalcium [Mass/Vol]8.1 mg/dLLow8.4 - 10.2 mg/dLOhioHealthChloride [Moles/Vol]106 mmol/L98 - 108 mmol/LOhioHealth Creatinine [Mass/Vol]1.00 mg/dL0.50 - 1.30OhioHealthGFR/1.73 sq M predicted among non-blacks MDRD (S/P/Bld) [Vol rate/Area]The eGFR should be used for monitoring renal function only and not for medication dosing.[facility] CarolinaHealthGFR/1.73 sq M.predicted CKD-EPI (S/P/Bld) [Vol rate/Area]85>=60 mL/min/1.73 f6LbogPxazgg Glucose [Mass/Vol]108 mg/zPSonx63 - 99 mg/dLOhioHealthHCO3 [Moles/Vol]26 mmol/L 21 - 32 mmol/LOhioHealthInterpretation and review of laboratory resultsAbnormal OhioHealthPotassium [Moles/Vol]4.0 mmol/L3.5 - 5.1 mmol/LOhioHealthSodium [Moles/Vol]137 mmol/L135 - 145 mmol/LOhioHealthUrea nitrogen [Mass/Vol]8 mg/dL8 - 25 mg/dLOhioHealthUrea nitrogen/Creatinine [Mass ratio]8.0 mg/mgLowOhioHealth CBCon 48-25-8901Lkeopdypgjd distribution width (RBC) [Entitic vol]16.2 %High11.6 - 14.8 %[facility] HospitalHematocrit (Bld) [Volume fraction]36.2 %Low41 - 53 %[facility] Hemoglobin (Bld) [Mass/Vol]11.2 g/dLLow13.5 - 17.5 g/dLOhioHealthInterpretation and review of laboratory resultsAbnormalOhioHealthMCH (RBC) [Entitic mass]25.7 pgLow26 - 34 pgOhioHealthMCHC (RBC) [Mass/Vol]30.9 g/dLLow31 - 37 g/dLOhioHealth MCV (RBC) [Entitic vol]83.0 fL80 - 100 fLOhioHealthNucleated RBC (Bld) [#/Vol] 0.00 10*3/uLOhioHealthNucleated RBC/100 WBC (Bld) [Ratio]0.0 %[facility] HospitalPlatelet mean volume (Bld) [Entitic vol]10.6 fL9.4 - 12.4 fLOhioHealthPlatelets (Bld) [#/Vol]511 10*3/uLHighOhioHealthRBC (Bld) [#/Vol]4.36 10*6/uLLowOhioHealthWBC (Bld) [#/Vol]11.96 10*3/uLHighOhioHealthMagnesium Levelon 11-11-2020 Interpretation and review of laboratory resultsNormalOhioHealthMagnesium [Mass/Vol]1.7 mg/dL1.6 - 2.4 mg/dLOhioHealthInterpretation and review of laboratory resultsNormalOhioHealthMagnesium [Mass/Vol]1.8 mg/dL1.6 - 2.4 mg/dL [facility] Glucoseon 72-33-3334Bovalpn [Mass/Vol]104 mg/kYEmjo18 - 99 mg/dL OhioHealthInterpretation and review of laboratory resultsAbnormalOhioHealth Glucose [Mass/Vol]86 mg/dL65 - 99 mg/dLOhioHealthInterpretation and review of laboratory resultsNormalOhioHealthGlucose [Mass/Vol]106 mg/tCQpep51 - 99 mg/dL OhioHealthInterpretation and review of laboratory resultsAbnormalOhioHealth Glucose [Mass/Vol]115 mg/nJSzce82 - 99 mg/dLOhioHealthInterpretation and review of laboratory resultsAbrmalOhioHealthBasi Metabolic Panelon 62-75-7987Ntavg gap [Moles/Vol]9 mmol/LLow10 - 20 mmol/LOhioHealthCalcium [Mass/Vol]7.9 mg/dLLow 8.4 - 10.2 mg/dLOhioHealthChloride [Moles/Vol]104 mmol/L98 - 108 mmol/L [facility] HospitalCreatinine [Mass/Vol]0.94 mg/dL0.50 - 1.30OhioHealthGFR/1.73 sq M predicted among non-blacks MDRD (S/P/Bld) [Vol rate/Area]The eGFR should be used for monitoring renal function only and not for medication dosing.[facility] GFR/1.73 sq M.predicted CKD-EPI (S/P/Bld) [Vol rate/Area]92>=60 mL/min/1.73 m2 [facility] HospitalGlucose [Mass/Vol]151 mg/pQAhsm34 - 99 mg/dLOhioHealthHCO3 [Moles/Vol] 26 mmol/L21 - 32 mmol/LOhioHealthInterpretation and review of laboratory results AbnormalOhioHealthPotassium [Moles/Vol]3.4 mmol/LLow3.5 - 5.1 mmol/LOhioHealth Sodium [Moles/Vol]136 mmol/L135 - 145 mmol/LOhioHealthUrea nitrogen [Mass/Vol]8 mg/dL8 - 25 mg/dLOhioHealthUrea nitrogen/Creatinine [Mass ratio]8.5 mg/mgLow OhioHealthCBCon 41-96-8311Qtlgxecwlyu distribution width (RBC) [Entitic vol]16.4 %High11.6 - 14.8 %OhioHealthHematocrit (Bld) [Volume fraction]36.2 %Low41 - 53 % OhioHealthHemoglobin (Bld) [Mass/Vol]11.4 g/dLLow13.5 - 17.5 g/dLOhioHealth Interpretation and review of laboratory resultsAbnormalOhioHealthMCH (RBC) [Entitic mass]26.5 pg26 - 34 pgOhioHealthMCHC (RBC) [Mass/Vol]31.5 g/dL31 - 37 g/dLOhioHealthMCV (RBC) [Entitic vol]84.2 fL80 - 100 fLOhioHealthNucleated RBC (Bld) [#/Vol]0.00 10*3/uLOhioHealthNucleated RBC/100 WBC (Bld) [Ratio]0.0 % OhioHealthPlatelet mean volume (Bld) [Entitic vol]11.0 fL9.4 - 12.4 fLOhioHealth Platelets (Bld) [#/Vol]411 10*3/uLHighOhioHealthRBC (Bld) [#/Vol]4.30 10*6/uLLow OhioHealthWBC (Bld) [#/Vol]12.21 10*3/uLHighOhioHealthImm/Pathon 2020 Bacteria identified Cx Nom (Bld)No Growth After 5 DaysOhioHealthMagnesium Level on 30-07-2266Xknumscvpjgsuk and review of laboratory resultsNormalOhioHealth Magnesium [Mass/Vol]1.9 mg/dL1.6 - 2.4 mg/dLOhioHealthPOC Glucoseon 2020 Glucose [Mass/Vol]136 mg/fWOogh37 - 99 mg/dLOhioHealthInterpretation and review of laboratory resultsAbnormalOhioHealthGlucose [Mass/Vol]137 mg/bBNxxo35 - 99 mg/dLOhioHealthInterpretation and review of laboratory resultsAbnormalOhioHealth Glucose [Mass/Vol]151 mg/fQHzeo43 - 99 mg/dLOhioHealthInterpretation and review of laboratory resultsAbnormalOhioHealthGlucose [Mass/Vol]167 mg/yDTihu30 - 99 mg/dLOhioHealthInterpretation and review of laboratory resultsAbnormalOhioHealth Glucose [Mass/Vol]154 mg/cCDfmb72 - 99 mg/dLOhioHealthInterpretation and review of laboratory resultsAbnormalOhioHealthGlucose [Mass/Vol]58 mg/dLLow65 - 99 mg/dLOhioHealthInterpretation and review of laboratory resultsAbnormalOhioHealth Basic Metabolic Panelon 51-96-6692Hhmut gap [Moles/Vol]11 mmol/L10 - 20 mmol/L OhioHealthCalcium [Mass/Vol]7.6 mg/dLLow8.4 - 10.2 mg/dLOhioHealthChloride [Moles/Vol]103 mmol/L98 - 108 mmol/LOhioHealthCreatinine [Mass/Vol]0.84 mg/dL 0.50 - 1.30OhioHealthGFR/1.73 sq M predicted among non-blacks MDRD (S/P/Bld) [Vol rate/Area]The eGFR should be used for monitoring renal function only and not for medication dosing.OhioHealthGFR/1.73 sq M.predicted CKD-EPI (S/P/Bld) [Vol rate/Area]100>=60 mL/min/1.73 r0KacsJbapmoMyjvqkx [Mass/Vol]85 mg/dL65 - 99 mg/dLOhioHealthHCO3 [Moles/Vol]24 mmol/L21 - 32 mmol/LOhioHealthInterpretation and review of laboratory resultsAbnormalOhioHealthPotassium [Moles/Vol]3.1 mmol/LLow3.5 - 5.1 mmol/LOhioHealthSodium [Moles/Vol]135 mmol/L135 - 145 mmol/L OhioHealthUrea nitrogen [Mass/Vol]10 mg/dL8 - 25 mg/dLOhioHealthUrea nitrogen/Creatinine [Mass ratio]11.9 mg/mgOhioHealthCBCon 29-15-6421Qovqscrgiox distribution width (RBC) [Entitic vol]16.2 %High11.6 - 14.8 %[facility] Hematocrit (Bld) [Volume fraction]35.8 %Low41 - 53 %OhioHealthHemoglobin (Bld) [Mass/Vol]11.2 g/dLLow13.5 - 17.5 g/dLOhioHealthInterpretation and review of laboratory resultsAbnormalOhioHealthMCH (RBC) [Entitic mass]25.9 pgLow26 - 34 pg OhioHealthMCHC (RBC) [Mass/Vol]31.3 g/dL31 - 37 g/dLOhioHealthMCV (RBC) [Entitic vol]82.9 fL80 - 100 fLOhioHealthNucleated RBC (Bld) [#/Vol]0.00 10*3/uL OhioHealthNucleated RBC/100 WBC (Bld) [Ratio]0.0 %OhioHealthPlatelet mean volume (Bld) [Entitic vol]11.1 fL9.4 - 12.4 fLOhioHealthPlatelets (Bld) [#/Vol]337 10*3/uLOhioHealthRBC (Bld) [#/Vol]4.32 10*6/uLLowOhioHealthWBC (Bld) [#/Vol] 11.42 10*3/uLHighOhioHealthMagnesium Levelon 52-66-0157Mxngvxywqsyqgu and review of laboratory resultsNormalOhioHealthMagnesium [Mass/Vol]1.7 mg/dL1.6 - 2.4 mg/dLOhioHealthPOC Glucoseon 08-63-2330Iyxtyba [Mass/Vol]112 mg/aRByqe37 - 99 mg/dLOhioHealthInterpretation and review of laboratory resultsAbnormalOhioHealth Glucose [Mass/Vol]82 mg/dL65 - 99 mg/dLOhioHealthInterpretation and review of laboratory resultsNormalOhioHealthGlucose [Mass/Vol]81 mg/dL65 - 99 mg/dL OhioHealthInterpretation and review of laboratory resultsNormalOhioHealthGlucose [Mass/Vol]88 mg/dL65 - 99 mg/dLOhioHealthInterpretation and review of laboratory resultsNormalOhioHealthGlucose [Mass/Vol]96 mg/dL65 - 99 mg/dL OhioHealthInterpretation and review of laboratory resultsNormalOhioHealthGlucose [Mass/Vol]88 mg/dL65 - 99 mg/dLOhioHealthInterpretation and review of laboratory resultsNormalOhioHealthGlucose [Mass/Vol]61 mg/dLLow65 - 99 mg/dL OhioHealthInterpretation and review of laboratory resultsAbnormalOhioHealthUrine Aerobic Cultureon 30-47-2295Bcfxfenq identified Aer cx Nom (Unsp spec)No Growth (<1,000 CFU/mL)OhioHealthWOUND AEROBIC CULTUREon 76-46-8682Hxxoflfa identified Aer cx Nom (Wound)Light Growth Staphylococcus aureusAbnormalOhioHealthComment on above:See susceptibility from same source/different date: 11/06/2020 Interpretation and review of laboratory resultsAbnormalOhioHealthMicroscopic observation Gram stain Nom (Wound)PositiveOhioHealthMicroscopic observation Gram stain Nom (Wound)Many WBCOhioHealthMicroscopic observation Gram stain Nom (Wound)No Epithelial Cells SeenOhioHealthBasic Metabolic Panelon 52-07-3723Nbezv gap [Moles/Vol]9 mmol/LLow10 - 20 mmol/LOhioHealthCalcium [Mass/Vol]7.8 mg/dL Low8.4 - 10.2 mg/dLOhioHealthChloride [Moles/Vol]104 mmol/L98 - 108 mmol/L OhioHealthCreatinine [Mass/Vol]0.98 mg/dL0.50 - 1.30OhioHealthGFR/1.73 sq M predicted among non-blacks MDRD (S/P/Bld) [Vol rate/Area]The eGFR should be used for monitoring renal function only and not for medication dosing.[facility] GFR/1.73 sq M.predicted CKD-EPI (S/P/Bld) [Vol rate/Area]88>=60 mL/min/1.73 m2 OhioHealthGlucose [Mass/Vol]136 mg/qPDhtq93 - 99 mg/dLOhioHealthHCO3 [Moles/Vol] 25 mmol/L21 - 32 mmol/LOhioHealthInterpretation and review of laboratory results AbnormalOhioHealthPotassium [Moles/Vol]3.4 mmol/LLow3.5 - 5.1 mmol/LOhioHealth Sodium [Moles/Vol]135 mmol/L135 - 145 mmol/LOhioHealthUrea nitrogen [Mass/Vol]14 mg/dL8 - 25 mg/dLOhioHealthUrea nitrogen/Creatinine [Mass ratio]14.3 mg/mg OhioHealthOtheron 67-91-4866Nljpfurb identified Aer cx Nom (Wound)Moderate Growth Staphylococcus aureusAbnormalOhioHealthComment on above:This Staphylococcus aureus is Methicillin SUSCEPTIBLE by PBP2a testing. Beta-lactams like Cefazolinand Nafcillin are superior to Vancomycin for treating mSsa. Interpretation and review of laboratory resultsAbnormalOhioHealthMicroscopic observation Gram stain Nom (Wound)No Epithelial Cells SeenOhioHealthPOC Glucose on 25-37-6944Mkvpiwv [Mass/Vol]105 mg/fHPlqf35 - 99 mg/dLOhioHealth Interpretation and review of laboratory resultsAbnormalOhioHealthGlucose [Mass/Vol]98 mg/dL65 - 99 mg/dLOhioHealthInterpretation and review of laboratory resultsNormalOhioHealthGlucose [Mass/Vol]109 mg/jVWqin06 - 99 mg/dLOhioHealth Interpretation and review of laboratory resultsAbnormalOhioHealthGlucose [Mass/Vol]107 mg/xRDshw09 - 99 mg/dLOhioHealthInterpretation and review of laboratory resultsAbnormalOhioHealthWOUND AEROBIC CULTUREon 55-50-2161Glcuxtyd identified Aer cx Nom (Wound)Moderate Growth Streptococcus agalactiae (Group B) AbnormalOhioHealthMicroscopic observation Gram stain Nom (Wound)Positive OhioHealthMicroscopic observation Gram stain Nom (Wound)No Organisms Seen OhioHealthMicroscopic observation Gram stain Nom (Wound)Few WBCOhioHealth Microscopic observation Gram stain Nom (Wound)Rare WBCOhioHealthSee susceptibility from same source/same date.[facility] HospitalCBC WITH AUTO DIFFERENTIALon 07-93-3173Rszeicfiv (Bld) [#/Vol]0.09 10*3/uLOhioHealthBasophils/100 WBC (Bld) 0.7 %OhioHealthEosinophils (Bld) [#/Vol]0.22 10*3/uLOhioHealthEosinophils/100 WBC (Bld)1.8 %[facility] HospitalErythrocyte distribution width (RBC) [Entitic vol]15.9 % High11.6 - 14.8 %OhioHealthHematocrit (Bld) [Volume fraction]35.6 %Low41 - 53 % OhioHealthHemoglobin (Bld) [Mass/Vol]11.2 g/dLLow13.5 - 17.5 g/dLOhioHealth Immature granulocytes (Bld) [#/Vol]0.20 10*3/uLOhioHealthImmature granulocytes/100 WBC (Bld)1.70 %OhioHealthComment on above:The IG parameter is the percentage of metamyelocytes, myelocytes and promyelocytes. An immature gran ulocyte count (IG) of 1% or more suggests the possibility of infection, an IG count of 3% is very likely related to an infection.Interpretation and review of laboratory resultsAbnormalOhioHealthLymphocytes (Bld) [#/Vol]1.29 10*3/uL OhioHealthLymphocytes/100 WBC (Bld)10.7 %OhioHealthMCH (RBC) [Entitic mass]26.4 pg26 - 34 pgOhioHealthMCHC (RBC) [Mass/Vol]31.5 g/dL31 - 37 g/dLOhioHealthMCV (RBC) [Entitic vol]83.8 fL80 - 100 fLOhioHealthMonocytes (Bld) [#/Vol]1.22 10*3/uLHighOhioHealthMonocytes/100 WBC (Bld)10.1 %OhioHealthNeutrophils (Bld) [#/Vol]9.01 10*3/uLHighOhioHealthNeutrophils/100 WBC (Bld)75.0 %[facility] Nucleated RBC (Bld) [#/Vol]0.00 10*3/uLOhioHealthNucleated RBC/100 WBC (Bld) [Ratio]0.0 %OhioHealthPlatelet mean volume (Bld) [Entitic vol]11.1 fL9.4 - 12.4 fLOhioHealthPlatelets (Bld) [#/Vol]282 10*3/uLOhioHealthRBC (Bld) [#/Vol]4.25 10*6/uLLowOhioHealthWBC (Bld) [#/Vol]12.03 10*3/uLHighOhioHealthPOC Glucoseon 87-47-4989Daulqtg [Mass/Vol]178 mg/fGScus99 - 99 mg/dLOhioHealthInterpretation and review of laboratory resultsAbnormalOhioHealthGlucose [Mass/Vol]205 mg/dL High65 - 99 mg/dLOhioHealthInterpretation and review of laboratory results AbnormalOhioHealthGlucose [Mass/Vol]221 mg/jOFhak37 - 99 mg/dLOhioHealth Interpretation and review of laboratory resultsAbnormalOhioHealthGlucose [Mass/Vol]206 mg/hWTdcq78 - 99 mg/dLOhioHealthInterpretation and review of laboratory resultsAbnormalOhioHealthGlucose [Mass/Vol]209 mg/tKIzwh03 - 99 mg/dL OhioHealthInterpretation and review of laboratory resultsAbnormalOhioHealthC3 COMPLEMENTon 59-86-1093Kyeitraupw C3 [Mass/Vol]151.9 mg/dL73 - 183 mg/dL OhioHealthC4 COMPLEMENTon 77-40-6922Rnpaubzrlc C4 [Mass/Vol]21.6 mg/dL16 - 47 mg/dLInioHealthCBC WITH AUTO DIFFERENTIALon 31-57-3433Riqvixcmv (Bld) [#/Vol] 0.07 10*3/uLOhioHealthBasophils/100 WBC (Bld)0.5 %OhioHealthEosinophils (Bld) [#/Vol]0.05 10*3/uLOhioHealthEosinophils/100 WBC (Bld)0.3 %[facility] HospitalErythrocyte distribution width (RBC) [Entitic vol]15.4 %High11.6 - 14.8 %[facility] Hematocrit (Bld) [Volume fraction]34.1 %Low41 - 53 %[facility] HospitalHemoglobin (Bld) [Mass/Vol]10.8 g/dLLow13.5 - 17.5 g/dLNorth CarolinaHealthImmature granulocytes (Bld) [#/Vol]0.14 10*3/uLOhioHealthImmature granulocytes/100 WBC (Bld)0.90 %[facility] Comment on above:The IG parameter is the percentage of metamyelocytes, myelocytes and promyelocytes. An immature granulocyte count (IG) of 1% or more suggests the possibility of infection, an IG count of 3% is very likely related to an infection.Interpretation and review of laboratory resultsAbnormal OhioHealthLymphocytes (Bld) [#/Vol]1.06 10*3/uLOhioHealthLymphocytes/100 WBC (Bld)6.9 %OhioHealthMCH (RBC) [Entitic mass]26.2 pg26 - 34 pgOhioHealthMCHC (RBC) [Mass/Vol]31.7 g/dL31 - 37 g/dLOhioHealthMCV (RBC) [Entitic vol]82.6 fL80 - 100 fLOhioHealthMonocytes (Bld) [#/Vol]1.56 10*3/uLHighOhioHealthMonocytes/100 WBC (Bld)10.2 %OhioHealthNeutrophils (Bld) [#/Vol]12.39 10*3/uLHighOhioHealth Neutrophils/100 WBC (Bld)81.2 %OhioHealthNucleated RBC (Bld) [#/Vol]0.00 10*3/uL OhioHealthNucleated RBC/100 WBC (Bld) [Ratio]0.0 %OhioHealthPlatelet mean volume (Bld) [Entitic vol]11.2 fL9.4 - 12.4 fLOhioHealthPlatelets (Bld) [#/Vol]248 10*3/uLOhioHealthRBC (Bld) [#/Vol]4.13 10*6/uLLowOhioHealthWBC (Bld) [#/Vol] 15.27 10*3/uLHighOhioHealthCT COMPARISON IMPORTon 83-73-3601Eade order has been auto-finalized and does not contain a result.[facility] HospitalHemoglobin A1con 54-60-1195Mrgjrbj glucose Estimated from glycated hemoglobin mass conc (Bld)189 mg/qXUehr22 - 114 mg/bBZsmiXntoikZdO7z (Bld) [Mass fraction]8.2 %High4 - 5.6 % OhioHealthInterpretation and review of laboratory resultsAbnormalOhioHealth Normal: 4.0% - 5.6% Increased risk for diabetes: 5.7% - 6.4% Diabetes: >= 6.5% Pediatrics: No established reference range Estimated average glucose: 68-114 mg/dLOhioHealthLactic Acid, Plasmaon 08-76-4066Aghsaiujskewtq and review of laboratory resultsAbnormalOhioHealthLactate [Moles/Vol]2.3 mmol/LHigh0.6 - 2 mmol/LOhioHealthMR Foot Left With And Without Contraston 84-49-3757Djezizphl, Rad In [facility] Lazoq - 11/06/2020 9:29 PM EST EXAMINATION: MR [...] long-axis T1, long-axis STIR with postcontrast short-axis andlong-axis T1 imaging with and without fat suppression. CONTRAST: GADOTERATE MEGLUMINE 0.5 MMOL/ML (376.9 MG/ML) INTRAVENOUS SOLUTION - 20 mL, FINDINGS: JOINTS: Marked sclerosis involving the subchondral bones along the navicular- middle cuneiform articulation and 2nd through 5th TMT joints, associated enhancing edema involving the navicular bone, cuneiform bones and 1st through 5th tarsometatarsal joints. Severe osteoarthritis redemonstrated in the1st MTP joint with joint space narrowing, marginal [...] AP by transverse dimension. There is marked enhancementin the soft tissues of the entire foot [...] or tenosynovitis is seen. MPH/mkv Workstation ID: [id number]: MR FOOT LEFT WITH AND WITHOUT CONTRAST HISTORY: ORDERING SYSTEM PROVIDED HISTORY: footinfection, TECHNOLOGIST PROVIDED HISTORY: Illness/Other Reason for exam: Non healing wounds lateral/ dorsal aspect x 7 days Encounter Type: [...] fracture is seen. TENDONS: Visualized flexor and extensortendons are intact. No long-segment tenosynovitis is seen. PLANTAR FASCIA: The visualized plantar fascia appears intact. SOFT TISSUES: Defect in the dorsal skin surface at the midfoot may be related to debridement with some packing material measuring 3.9 x 1.3 cm, AP by transverse dimension. There is marked enhancement in the soft tissues of the entire foot compatible with cellulitis. Ill-definedabsent enhancement is seen along the tarsometatarsal joint which could be related to tissue necrosis. No certain abscess. No evidence of intermetatarsal bursitis. Plantar plates are intact. There is p rominent fatty atrophy of the forefoot muscles presumably related to chronic diabetic neuropathy.[facility]1. Abnormal appearance of the midfoot particularly at [...] tendon tear or tenosynovitis is seen. MPH/mkv Wo rkstation ID: [id number] Foot Right With And Without Contraston 50-34-6870Tsmgtdemu, Rad In [facility] Speechq - 11/06/2020 9:00 PM EST EXAMINATION: [...] dome osteochondral lesion is seen. There is fsmb-up-krqcomtm mid and hindfoot osteoarthritis with scattered marginal spur noted. Prior forefoot resection is noted to the 1st and 2nd TMT joints with remnants of the 3rd through 5th metatarsals remaining. BONES: No enhancing edema or marrow infiltrative change involving the tarsal bones or metatarsal remnants. No fracture is seen. LIGAMENTS: There several large ossicles in the expected location of the ATFL compatible with remotesprain. The calcaneal fibular ligament is intact. The posterior talofibular ligament appears intact. Architectural distortion of the deep fibers of the deltoid ligament associated with large ossicle,related to remote sprain. The anterior and posterior tibiofibular ligaments are intact. TENDONS: Postsurgical changes of the tendons at the midfoot is noted. No tenosynovitis is seen. TheAchilles tendon is grossly intact, as seen. SINUS [...] 3. No MR signs of osteomyelitis. 4. Hful-wx-ynpbyahw mid/hindfoot osteoarthritis. 5. Remote sprains of the ATFL and deep fibers of the deltoid ligament, as above. 911 View/[employer] Workstation ID: [id number]: MR FOOT RIGHT WITH AND WITHOUT CONTRAST [...] dome osteochondral lesion is seen. There is jdas-tw-lsrnqyqu mid and hindfoot osteoarthritis with scattered marginal spur noted. Prior forefoot resection is noted to the 1st and 2nd TMT joints with remnants of the 3rd through 5thmetatarsals remaining. BONES: No enhancing edema or marrow infiltrative change involving the tarsalbones or metatarsal remnants. No fracture is seen. [...] at the surgical stump overlying the 3rd metatarsalmeasuring 1.0 cm in transverse dimension. No associated abscess.[facility]1. Prior forefoot resection. Cellulitis of the surgical stump is seen associated with small ulceration. 2. No abscess. 3. No MR signs of osteomyelitis. 4. Goxw-xj-vhwxqula mid/hindfoot osteoarthritis. 5. Remote sprains of the ATFL and deep fibers of the deltoid ligament, as above. 911 View/Mogo[employer] Workstation ID: [id number] 97-74-9818Jpcdaantk [Mass/Vol]1.9 mg/dL1.6 - 2.4 mg/dLOhioHealthOtheron 21-96-1288Snovcwgbgsfsbl and review of laboratory resultsNormalOhioHealthEXAMINATION: XR FOOT RIGHT 3+ VIEWS (STANDARD); XR FOOT LEFT 3+ VIEWS (STANDARD) 11/06/2020 10:20 am; 11/06/2020 10:22 am HISTORY: ORDERING SYSTEM PROVIDED HISTORY: osteomyelitis, TECHNOLOGIST PROVIDED HISTORY: Illness/Other Reason for exam: Secondary DM with DKA (HCC) Cancer History: Surgery, RadiationHistory: Encounter Type: Initial Additional signs and symptoms: Secondary DM with DKA (HCC), noknown injury ORDERING SYSTEM PROVIDED DIAGNOSIS CODES: ; [...] LEFT: BONES: No acute fracture or dislocation. Wjkx-lm-bggjbasa degenerative changes throughout the foot. Severe degenerativechanges the 1st metatarsophalangeal joint with bony remodeling, usvk-ue-kzsc articulation and marginal osteophyte formation. Enthesopathic spurring of the calcaneus. SOFT TISSUES: Moderate soft tissue swelling EFFUSION: None visible. OTHER: Negative.[facility] plain film evidence of osteomyelitis in the right or left foot Workstation ID: [id number], Rad In [facility] - 11/06/2020 10:30 AM EST EXAMINATION: XR FOOT RIGHT 3+ VIEWS (STANDARD); XR FOOT LEFT 3+ VIEWS (STANDARD) 11/06/2020 10:20 am; 11/06/202010:22 am HISTORY: ORDERING SYSTEM PROVIDED HISTORY: osteomyelitis, [...] LEFT: BONES: No acute fracture or dislocation. Qskb-jy-fnohmzvw degenerative changes throughout the foot.Severe degenerative changes the 1st metatarsophalangeal joint with bony remodeling, wvxg-fl-hwpw articulation and marginal osteophyte formation. Enthesopathic spurring of the calcaneus. SOFT TISSUES: Moderate soft tissue swelling EFFUSION: None visible. OTHER: Negative. IMPRESSION: No definite plain film evidence of osteomyelitis in the right or left foot Workstation ID: [id number] and review of laboratory results NormalOhioHealthPOC Glucoseon 67-86-3421Atcwrlz [Mass/Vol]327 mg/kARauc18 - 99 mg/dLOhioHealthInterpretation and review of laboratory resultsAbnormalOhioHealth Glucose [Mass/Vol]301 mg/uHYdtm92 - 99 mg/dLOhioHealthInterpretation and review of laboratory resultsAbnormalOhioHealthGlucose [Mass/Vol]272 mg/iJKbdv25 - 99 mg/dLOhioHealthInterpretation and review of laboratory resultsAbnormalOhioHealth Glucose [Mass/Vol]346 mg/yKYihk37 - 99 mg/dLOhioHealthInterpretation and review of laboratory resultsAbnormalOhioHealthGlucose [Mass/Vol]303 mg/wBKrui00 - 99 mg/dLOhioHealthInterpretation and review of laboratory resultsAbnormalOhioHealth Procalcitoninon 76-26-0706Amhsdlxovkvfdf and review of laboratory results AbnormalOhioHealthProcalcitonin [Mass/Vol]3.85 ng/mLHigh<0.50OhioHealthResults >2.00 ng/ml represent a high risk of severe sepsis and/or septic shock. OhioHealthProtein / Creatinine Ratio, Urineon 68-92-3843Bhlccvqbiy (U) [Mass/Vol]36.6 mg/dLOhioHealthInterpretation and review of laboratory results AbnormalOhioHealthProtein (U) [Mass/Vol]61.1 mg/dLOhioHealthProtein/Creatinine (U) [Ratio]1.7HighOhioHealthReflex Lactic Acid, Plasmaon 11-06-2020 Interpretation and review of laboratory resultsAbnormalOhioHealthLactate [Moles/Vol]2.1 mmol/LHigh0.6 - 2 mmol/LOhioHealthRenal Function Panelon 67-60-5677Mjfyelf [Mass/Vol]1.5 g/dLLow3.2 - 5.2 g/dLOhioHealthAnion gap [Moles/Vol]13 mmol/L10 - 20 mmol/LOhioHealthCalcium [Mass/Vol]7.7 mg/dLLow8.4 - 10.2 mg/dLOhioHealthChloride [Moles/Vol]104 mmol/L98 - 108 mmol/LOhioHealth Creatinine [Mass/Vol]1.54 mg/dLHigh0.50 - 1.30OhioHealthGFR/1.73 sq M predicted among non-blacks MDRD (S/P/Bld) [Vol rate/Area]The eGFR should be used for monitoring renal function only and not for medication dosing.OhioHealthGFR/1.73 sq M.predicted CKD-EPI (S/P/Bld) [Vol rate/Area]51Low>=60 mL/min/1.73 m2 OhioHealthGlucose [Mass/Vol]281 mg/yCXxqp61 - 99 mg/dLOhioHealthHCO3 [Moles/Vol] 19 mmol/LLow21 - 32 mmol/LOhioHealthInterpretation and review of laboratory resultsAbnormalOhioHealthPhosphate [Mass/Vol]2.2 mg/dLLow2.7 - 4.5 mg/dL OhioHealthPotassium [Moles/Vol]3.8 mmol/L3.5 - 5.1 mmol/LOhioHealthSodium [Moles/Vol]132 mmol/DDrz218 - 145 mmol/LOhioHealthUrea nitrogen [Mass/Vol]36 mg/dLHigh8 - 25 mg/dLOhioHealthUrea nitrogen/Creatinine [Mass ratio]23.4 mg/mg HighOhioHealthTSHon 16-75-0506LNQ Qn0.80 m[IU]/LOhioHealthURINALYSISon 39-52-7986Wlsnopxe Auto Ql (U)RareAbnormalNone Seen /hpfOhioHealthBilirubin Ql (U)NegativeNegativeOhioHealthClarity Refractometry automated (U)ClearClear OhioHealthColor (U)YellowColorless, YellowOhioHealthEpithelial cells.squamous Auto (Urine sed) [#/Area]<1OhioHealthGlucose Auto test strip (U) [Mass/Vol]>=500 AbnormalNegative mg/dLOhioHealthHemoglobin Auto test strip Ql (U)Moderate AbnormalNegativeOhioHealthInterpretation and review of laboratory results AbnormalOhioHealthKetones (U) [Mass/Vol]20AbnormalNegative mg/dLOhioHealth Leukocyte esterase Auto test strip Ql (U)NegativeNegativeOhioHealthMucus Auto (Urine sed) [#/Area]RareNone Seen, Rare /lpfOhioHealthNitrite Auto test strip Ql (U)NegativeNegativeOhioHealthpH (U)5.5 [pH]OhioHealthProtein (U) [Mass/Vol]30 AbnormalNegative mg/dLOhioHealthComment on above:False positive results may occur in urines with large amounts of hemoglobin, pH greater than 8.0, contrast medium, or disinfectants including ammonium compounds.RBC Auto (Urine sed) [#/Area]19HighOhioHealthSpecific gravity (U) [Rel density]1.019[facility]Health Urobilinogen (U) [Mass/Vol]<2.0<2.0 mg/dLOhioHealthWBC Auto (Urine sed) [#/Area] 1OhioHealthMicroscopic examination is performed on all urinalysis samples and only positive findings are reported. The test for blood on the chemical analytic portion of urinalysis may also be positive due to hemoglobinuria and myoglobinuria and if red blood cells are present they are quantified by microscopic examination.[facility] HospitalXR COMPARISON IMPORTon 20-07-5341Pjau order has been auto-finalized and does not contain a result.[facility] HospitalXR FOOT LEFT 3+ VIEWS (STANDARD)on 72-84-2552FM FOOT LEFT 3+ VIEWS (STANDARD)EXAMINATION: XR FOOT RIGHT 3+ VIEWS (STANDARD); XR [...] LEFT: BONES: No acute fracture or dislocation. Eoef-zg-nddzoyas degenerative changes throughout the foot. Severe degenerative changes the 1st metatarsophalangeal joint with bony remodeling, lnsw-er-cols articulation and marginal osteophyte formation. 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 Rtsr-ye-lugfloau degenerative changes throughout the foot. Severe degenerative changes the 1st metatarsophalangeal joint with bony remodeling, pvcv-fv-zeme articulation and marginal osteophyte formation. Enthesopathic spurring [...] LA on WedNov 06, 2020 10:27:44 AM [facility] on above:Order Comment: Injury/Trauma or Illness?:Illness/Other How long have you had these symptoms (acute/chronic)?:Acute Reason for exam?:Secondary DM with DKA (HCC) History of cancer?: Surgeries, chemotherapy, or radiation?: Type of Exam?:Initial Additional signs and symptoms?:Secondary DM with DKA (HCC), no known injury Beta-Hydroxybutyrateon 51-30-7413Votm hydroxybutyrate [Moles/Vol]1.4 mmol/LHigh0 - 0.3 mmol/LOhioHealthInterpretation and review of laboratory resultsAbnormal [facility] WITH AUTO DIFFERENTIALon 63-13-3602Tpbkrfljq (Bld) [#/Vol]0.07 10*3/uLOhioHealthBasophils/100 WBC (Bld)0.4 %[facility] CarolinaHealthEosinophils (Bld) [#/Vol] 0.01 10*3/uLOhioHealthEosinophils/100 WBC (Bld)0.1 %[facility] HospitalErythrocyte distribution width (RBC) [Entitic vol]15.2 %High11.6 - 14.8 %[facility] Hematocrit (Bld) [Volume fraction]37.7 %Low41 - 53 %OhioTr[facility] HospitalHemoglobin (Bld) [Mass/Vol]11.9 g/dLLow13.5 - 17.5 g/dLOhioHealthImmature granulocytes (Bld) [#/Vol]0.10 10*3/uLOhioHealthImmature granulocytes/100 WBC (Bld)0.60 %[facility] Comment on above:The IG parameter is the percentage of metamyelocytes, myelocytes and promyelocytes. An immature granulocyte count (IG) of 1% or more suggests the possibility of infection, an IG count of 3% is very likely related to an infection.Interpretation and review of laboratory resultsAbnormal OhioHealthLymphocytes (Bld) [#/Vol]0.60 10*3/uLLowOhioHealthLymphocytes/100 WBC (Bld)3.8 %[facility] HospitalMCH (RBC) [Entitic mass]26.3 pg26 - 34 pgOhioHealthMCHC (RBC) [Mass/Vol]31.6 g/dL31 - 37 g/dLOhioHealthMCV (RBC) [Entitic vol]83.4 fL80 - 100 fLOhioHealthMonocytes (Bld) [#/Vol]1.71 10*3/uLHighOhioHealthMonocytes/100 WBC (Bld)10.8 %OhioHealthNeutrophils (Bld) [#/Vol]13.36 10*3/uLHighOhioHealth Neutrophils/100 WBC (Bld)84.3 %OhioHealthNucleated RBC (Bld) [#/Vol]0.00 10*3/uL OhioHealthNucleated RBC/100 WBC (Bld) [Ratio]0.0 %[facility] HospitalPlatelet mean volume (Bld) [Entitic vol]11.0 fL9.4 - 12.4 fLOhioHealthPlatelets (Bld) [#/Vol]274 10*3/uLOhioHealthRBC (Bld) [#/Vol]4.52 10*6/uLOhioHealthWBC (Bld) [#/Vol]15.85 10*3/uLHighOhioHealthCPK NO MBon 00-28-0825AM [Catalytic activity/Vol]98 U/L60 - 225 U/LOhioHealthInterpretation and review of laboratory resultsNormalOhioHealth CRP, Inflammationon 39-63-7244GCE [Mass/Vol]468.0 mg/LHigh<=10.0OhioHealth Comprehensive Metabolic Panelon 83-39-1492Tgnwvcp [Mass/Vol]1.8 g/dLLow3.2 - 5.2 g/dLOhioHealthALP [Catalytic activity/Vol]95 U/L40 - 150 U/LOhioHealthALT [Catalytic activity/Vol]16 U/L14 - 65 U/LOhioHealthAnion gap [Moles/Vol]14 mmol/L10 - 20 mmol/LOhioHealthAST [Catalytic activity/Vol]26 U/L0 - 45 U/L OhioHealthBilirubin [Mass/Vol]0.9 mg/dL0 - 1.3 mg/dLOhioHealthCalcium [Mass/Vol] 8.2 mg/dLLow8.4 - 10.2 mg/dLOhioHealthChloride [Moles/Vol]97 mmol/LLow98 - 108 mmol/LOhioHealthCreatinine [Mass/Vol]1.82 mg/dLHigh0.50 - 1.30OhioHealthGFR/1.73 sq M predicted among non-blacks MDRD (S/P/Bld) [Vol rate/Area]The eGFR should be used for monitoring renal function only and not for medication dosing. OhioHealthGFR/1.73 sq M.predicted CKD-EPI (S/P/Bld) [Vol rate/Area]41Low>=60 mL/min/1.73 t5KxvhJvvarlBblaszr [Mass/Vol]309 mg/cIBevq40 - 99 mg/dLOhioHealth HCO3 [Moles/Vol]22 mmol/L21 - 32 mmol/LOhioHealthPotassium [Moles/Vol]3.3 mmol/L Low3.5 - 5.1 mmol/LOhioHealthProtein [Mass/Vol]8.1 g/dLHigh6 - 8 g/dLOhioHealth Sodium [Moles/Vol]130 mmol/PZxo474 - 145 mmol/LOhioHealthUrea nitrogen [Mass/Vol]42 mg/dLHigh8 - 25 mg/dLOhioHealthUrea nitrogen/Creatinine [Mass ratio]23.1 mg/mgHighOhioHealthLactic Acid, Plasmaon 16-54-6423Oyasyvrkjacyom and review of laboratory resultsAbnormalOhioHealthLactate [Moles/Vol]3.1 mmol/LHigh 0.6 - 2 mmol/LOhioHealthMR FOOT LEFT WITH AND WITHOUT CONTRASTon 18-78-5631YJ FOOT LEFT WITH AND WITHOUT CONTRASTEXAMINATION: MR FOOT LEFT WITH AND WITHOUT CONTRAST [...] 06, 2020 9:25:35 PM EST Finalized by: CAHN OLIVERA on WedNov 06, 2020 9:27:00 PM [facility] CenterComment on above:Order Comment: Injury/Trauma or Illness?:Illness/Other How long have you had these symptoms (acute/chronic)?:Acute Reason for exam?:Non healing wounds lateral / dorsal aspect x 7 days Type of Exam?:Initial Additional signs and symptoms?:naMR FOOT RIGHT WITH AND WITHOUT CONTRASTon 45-16-6137KG FOOT RIGHT WITH AND WITHOUT CONTRASTEXAMINATION: MR FOOT RIGHT WITH AND WITHOUT CONTRAST [...] dome osteochondral lesion is seen. There is eckf-vx-umlnfwef mid and hindfoot osteoarthritis with scattered marginal [...] 3. No MR signs of osteomyelitis. 4. Jhse-wn-smkwjfyx mid/hindfoot osteoarthritis. 5. Remote sprains of the ATFL and deep fibers of the deltoid ligament, as above. MPH/[employer] Workstation ID: [id number] Dictated by: CHAN OLIVERA on WedNov 06, 2020 8:37:02 PM EST Transcribed by: DEBRA BOLIVAR on WedNov 06, 2020 8:49:17 PM EST Finalized by: CHAN OLIVERA on WedNov 06, 2020 8:58:02 PM [facility] CenterComment on above:Order Comment: Injury/Trauma or Illness?:Illness/Other How long have you had these symptoms (acute/chronic)?:Acute Reason for exam?:non healing wound on top of foot History of cancer?: Surgeries, chemotherapy, or radiation?: Type of Exam?:Initial Additional signs and symptoms?:painMagnesiumon 51-59-1800Cuwvyyhphsjuzr and review of laboratory resultsNormalOhioHealthMagnesium [Mass/Vol]2.0 mg/dL1.6 - 2.4 mg/dLOhioHealthOtheron 28-08-7585Ohuwukjibpxykm and review of laboratory resultsAbnormalOhioHealthPhosphoruson 89-56-8155Qnvbhhorx [Mass/Vol]1.6 mg/dLLow 2.7 - 4.5 mg/dLOhioHealthSedimentation Rateon 80-31-2897IYU (Bld) [Velocity]110 mm/hHighOhioHealthInterpretation and review of laboratory resultsAbnormal OhioHealthTROPONINon 81-13-6986Znhzrbem I.cardiac [Mass/Vol]ng/mL<=45 ng/L OhioHealthTroponin I.cardiac [Mass/Vol]No biomarker evidence of cardiac injury. OhioHealthTroponin I.cardiac [Mass/Vol]ng/mL<=45 ng/LOhioHealthTroponin I.cardiac [Mass/Vol]NormalOhioHealthXR CHEST PA/APon 68-97-9025SF CHEST PA/AP EXAMINATION: XR CHEST PA/AP 11/05/2020 [...] LEGGETT on WedNov 05, 2020 8:04:45 PM [facility] above:Order Comment: Injury/Trauma or Illness?:Illness/Other How long have you had these symptoms (acute/chronic)?:Acute Reason for exam?:SOB History of cancer?: Surgeries, chemotherapy, or radiation?: Type of Exam?:Initial Additional signs and symptoms?:nXR Chest 1 Viewon [id number], Rad In Fuji Speechq - 11/05/2020 8:07 PM EST EXAMINATION: [...] could be atelectasis or pneumonia Workstation ID: [id number]: XR CHEST PA/AP 11/05/2020 7:25 pm HISTORY: [...] effusion or pneumothorax. No acute osseous abnormality. [facility] basilar opacity, could be atelectasis or pneumonia Workstation ID: [id number] A1Con [id number] A1c/Hemoglobin.total mass fraction (Bld)7.6 %High4.0-6.0The [facility] Charles HospitalComment on above:Performed By: #### [id number] #### [facility] [address] [place] [address], [facility]ITALHemoglobin A1c/Hemoglobin.total mass fraction (Bld)171 mg/iILbzg76-354Uyt [facility] Charles HospitalComment on above:Performed By: #### [id number] #### [facility] [address] [place] [address], [place] Vital Signs Date TimeVital SignValuePerforming YuxnevymlVnizpheu18-06-9669 08:28-0400Body mass index (BMI) [Ratio]38.62 kg/q4GxolttnArt Freeman DO Work Phone: [facility] [employer] Ovhqdu56-44-2436 08:28-0400Body xhuabwgvtns39.7 [degF]Art Freeman DO Work Phone: [facility] [employer] Krfsuz78-76-4001 08:28-0400Body yrorie575.94 kgArt Freeman DO Work Phone: [facility] [employer] Zdwxng28-91-7001 08:28-0400Diastolic blood nzazbawi29 mm[Hg]Art Freeman DO Work Phone: [phone] [employer] Vwssda70-42-4416 08:28-0400Heart rate 92 /minMicfelicia Freeman DO Work Phone: [facility]10-31-2025 08:28-2333SdR7% (BldA) [Mass fraction]96 %Art Freeman DO Work Phone: [facility] [employer] Vlxdtc64-42-0394 08:28-0400Systolic blood rnsbyfdi379 mm[Hg]Art Freeman DO Work Phone: [facility]10-22-2025 10:45-0400Body jkudwxccchh19.2 [degF]Cheng Staples WEIGHT CLERK-C Work Phone: [facility]10-22-2025 10:45-0400 Diastolic blood ytyrbbiq89 mm[Hg]Cheng Staples WEIGHT CLERK-C Work Phone: [facility]10-22-2025 10:45-0400 Heart rate88 /minLisa Aichholz WEIGHT CLERK-C Work Phone: [facility]10-22-2025 10:45-0400 Respiratory rate16 /minLisa Aichholz WEIGHT CLERK-C Work Phone: [facility]10-22-2025 10:45-0400 SaO2% (BldA) [Mass fraction]98 %Cheng Staples WEIGHT CLERK-C Work Phone: [facility]10-22-2025 10:45-0400 Systolic blood mdsegbxo913 mm[Hg]Cheng Staples WEIGHT CLERK-C Work Phone: [facility]09-22-2025 08:17-0400 Body mass index (BMI) [Ratio]37.31 kg/m2Pm[address]09-22-2025 08:17-0400Body gypnwx204[address]09-22-2025 08:17-0400 Diastolic blood xaonnole46 mm[Hg][address]09-22-2025 08:17-0400Heart rate94 /min[address]09-22-2025 08:17-0400 Systolic blood bipojslg298 mm[Hg][address]09-19-2025 10:17-0400Body mass index (BMI) [Ratio]37.46 kg/x7Ltasuep Badik DO Work Phone: [facility]09-19-2025 10:17-0400Body rxzflpzujmk62.59 [degF]Art Freeman DO Work Phone: [facility]09-19-2025 10:17-0400Body sjrqfe357.4 kgMicfelicia Freeman DO Work Phone: [facility]09-19-2025 10:17-0400Diastolic blood xxlgxvin65 mm[Hg]Art Freeman DO Work Phone: [facility]09-19-2025 10:17-0400Heart rate 82 /minMicfelicia Freeman DO Work Phone: [facility] [employer] Giqjbl92-74-1632 10:17-6951UkV9% (BldA) [Mass fraction]96 %Art Freeman DO Work Phone: [facility]09-19-2025 10:17-0400Systolic blood tylnwgiu556 mm[Hg]Art Freeman DO Work Phone: [facility]08-25-2025 13:30-0400Body mass index (BMI) [Ratio]37.59 kg/m2Pmh [address] [place], [place] 9935408-25-2025 13:30-0400 Body lccebp818.[address] [place], [place] 9935408-18-2025 12:22-0400Diastolic blood boeqovrc93 mm[Hg]Cheng Aichholz Work Phone: [facility]08-18-2025 12:22-0400 Heart rate78 /minLisa Aichholz Work Phone: [facility]08-18-2025 12:22-0400 Respiratory rate16 /minLisa Aichholz Work Phone: [phone]-[facility]08-18-2025 12:22-0400 SaO2% (BldA) [Mass fraction]95 %Cheng Aichholz Work Phone: [facility]08-18-2025 12:22-0400 Systolic blood siozjgmw292 mm[Hg]Cheng Aichholz Work Phone: [phone])233-[facility]08-18-2025 10:40-0400 Inhaled oxygen flow rate2 L/minLisa Aichholz Work Phone: [facility]08-18-2025 08:31-0400 Body sxijlv971.8 cmLisa Aichholz Work Phone: [facility]08-18-2025 08:31-0400 Body jlqcub571.02 kgLisa Aichholz Work Phone: [facility]08-14-2025 09:26-0400 Body mass index (BMI) [Ratio]37.54 kg/v1Qvjzvtsfelicia Freeman DO Work Phone: [facility]08-14-2025 09:26-0400Body seeevmvqqkp36.1 [degF]Art Freeman DO Work Phone: [facility]08-14-2025 09:26-0400Body gbiajp481.67 kgMichaedaryn Badik DO Work Phone: [facility]08-14-2025 09:26-0400Diastolic blood lfjuimpf56 mm[Hg]Art Freeman DO Work Phone: [facility]08-14-2025 09:26-0400Heart rate 90 /minMicfelicia Freeman DO Work Phone: [facility]08-14-2025 09:26-6389PhH0% (BldA) [Mass fraction]95 %Art Freeman DO Work Phone: [facility]08-14-2025 09:26-0400Systolic blood coqegduw451 mm[Hg]Art Freeman DO Work Phone: [facility]08-07-2025 10:48-0400Body .8 cmLisa Aichholz Work Phone: [facility]08-07-2025 10:48-0400 Body mass index (BMI) [Ratio]38.2 kg/m2Lisa Aichholz Work Phone: [facility]08-07-2025 10:48-0400 Body wasflbfhtrr01.2 [degF]Cheng Aichholz Work Phone: [facility]08-07-2025 10:48-0400 Body lstwyd427.1 kgLisa Aichholz Work Phone: [facility]08-07-2025 10:48-0400 Diastolic blood gjeoubhe90 mm[Hg]Cheng Aichholz Work Phone: [facility]08-07-2025 10:48-0400 Heart rate68 /minLisa Aichholz Work Phone: [facility]08-07-2025 10:48-0400 Respiratory rate16 /minLisa Aichholz Work Phone: [facility]08-07-2025 10:48-0400 SaO2% (BldA) [Mass fraction]98 %Cheng Staples Work Phone: [facility]08-07-2025 10:48-0400 Systolic blood fjfppjai927 mm[Hg]Cheng Staples Work Phone: [facility]06-19-2025 09:29-0400 Body mass index (BMI) [Ratio]38.11 kg/y4Zbmllxffelicia Freeman DO Work Phone: [facility] [employer] Nrarvd72-33-4866 09:29-0400Body zehwczfwenf46.81 [degF]Art Freeman DO Work Phone: [facility] [employer] Xuekxl55-63-7352 09:29-0400Body tgnfto315.39 kgMicfelicia Freeman DO Work Phone: [facility] [employer] Cwwuwf96-96-0554 09:29-0400Diastolic blood jpqrocle94 mm[Hg]Art Freeman DO Work Phone: [facility] [employer] Wbligc18-89-8100 09:29-0400Heart rate 90 /minMicfelicia Freeman DO Work Phone: [facility] [employer] Xfifha84-94-1435 09:29-6538TzE6% (BldA) [Mass fraction]95 %Art Freeman DO Work Phone: [facility] [employer] Duskru00-40-4063 09:29-0400Systolic blood mm[Hg]Art Freeman DO Work Phone: [facility] [employer] Dddsbt62-23-4584 14:12-0400Body atesiq589 cmMicfelicia Freeman DO Work Phone: [facility]06-05-2025 14:12-0400Body mass index (BMI) [Ratio]38.05 kg/d1WgxtorbArt Freeman DO Work Phone: [facility]06-05-2025 14:12-0400Body .1 [degF]Art Freeman DO Work Phone: [facility]06-05-2025 14:12-0400Body bkqnni767.21 kgArt Freeman DO Work Phone: [facility]06-05-2025 14:12-0400Diastolic blood qapyptia99 mm[Hg]Art Freeman DO Work Phone: [facility]06-05-2025 14:12-0400Heart rate 95 /minMicfelicia Freeman DO Work Phone: [facility]06-05-2025 14:12-8655UvR0% (BldA) [Mass fraction]96 %Art Freeman DO Work Phone: [facility]06-05-2025 14:12-0400Systolic blood ccozqecw588 mm[Hg]Art Freeman DO Work Phone: [facility]06-03-2025 09:00-0400Body imlmkutpith36.7 [degF]Sherri Garcia 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-SERVICE DESK ANALYST Work Phone: [facility]06-03-2025 09:00-0400Diastolic blood aaaeyhof64 mm[Hg]Sherri Garcia 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-SERVICE DESK ANALYST Work Phone: [facility]06-03-2025 09:00-0400Heart rate 97 /minSherri Kaitlynn BURNS-SERVICE DESK ANALYST Work Phone: [facility]06-03-2025 09:00-0400 Respiratory rate16 /minSherri Kaitlynn 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-SERVICE DESK ANALYST Work Phone: [facility]06-03-2025 09:00-0400Systolic blood uejiidei370 mm[Hg]Sherri Garcia GRANT-SERVICE DESK ANALYST Work Phone: [facility]05-21-2025 10:36-0400Body nrbcogiksti28.5 [degF]Sherri Garcia 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-SERVICE DESK ANALYST Work Phone: [facility]05-21-2025 10:36-0400Diastolic blood eazsowln77 mm[Hg]Sherri Garcia 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-SERVICE DESK ANALYST Work Phone: [phone]05-21-2025 10:36-0400Heart rate 100 /minSherri Garcia 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-SERVICE DESK ANALYST Work Phone: [phone]05-21-2025 10:36-0400 Respiratory rate16 /minSherri Garcia 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-SERVICE DESK ANALYST Work Phone: 1(508)329-[address] [place], [place] [address]505-21-2025 10:36-0400Systolic blood crrrsfyq244 mm[Hg]Sherri Garcia 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-SERVICE DESK ANALYST Work Phone: [phone]05-07-2025 10:56-0400Body ruvxvsighzc34.7 [degF]Sherri Garcia 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-SERVICE DESK ANALYST Work Phone: [phone]05-07-2025 10:56-0400Diastolic blood lktxfuqa54 mm[Hg]Sherri Garcia 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-SERVICE DESK ANALYST Work Phone: [phone]05-07-2025 10:56-0400Heart rate 94 /minSherri Garcia 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-SERVICE DESK ANALYST Work Phone: [phone]05-07-2025 10:56-0400 Respiratory rate16 /Montserrat Garcia 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-SERVICE DESK ANALYST Work Phone: [phone]05-07-2025 10:56-0400Systolic blood mgyuraqw525 mm[Hg]Sherri Garcia 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-SERVICE DESK ANALYST Work Phone: [phone]12-03-2024 08:45-0500Body czhigq014.8 Randall Price MD Work Phone: [facility]12-03-2024 08:45-0500Body mass index (BMI) [Ratio]36.73 kg/j6FoosvaqDavida Price MD Work Phone: [facility]12-03-2024 08:45-0500Body temperature 98.29 [degF]Davida Price MD Work Phone: [facility]12-03-2024 08:45-0500Body nbjamr220.12 kgDavida Price MD Work Phone: [facility]12-03-2024 08:45-0500Diastolic blood dvmcdawf81 mm[Hg]Davida Price MD Work Phone: [facility]12-03-2024 08:45-0500Heart mkcw848 /minDavida Price MD Work Phone: [facility]12-03-2024 08:45-6856YlV5% (BldA) [Mass fraction]96 %Davida Price MD Work Phone: [facility]12-03-2024 08:45-0500Systolic blood mm[Hg]Davida Price MD Work Phone: [facility]06-18-2024 14:19-0400Body fnzryw429.8 cmLisa Aichholz Work Phone: [facility]06-18-2024 14:19-0400 Body mass index (BMI) [Ratio]38.4 kg/m2Lisa Aichholz Work Phone: [facility]06-18-2024 14:19-0400 Body bfgxul818.56 kgLisa Aichholz Work Phone: [facility]03-14-2024 14:52-0400 Diastolic blood asvhmjkw38 mm[Hg]Cheng Aichholz Work Phone: [facility]03-14-2024 14:52-0400 Heart rate88 /minLisa Aichholz Work Phone: [facility]03-14-2024 14:52-0400 Respiratory rate16 /minLisa Aichholz Work Phone: [facility]03-14-2024 14:52-0400 SaO2% (BldA) [Mass fraction]98 %Cheng Aichholz Work Phone: [phone]-[facility]03-14-2024 14:52-0400 Systolic blood vhxriglv948 mm[Hg]Cheng Aichholz Work Phone: [phone]03-14-2024 12:58-0400 Body dykogu744.8 cmLisa Aichholz Work Phone: [phone]03-14-2024 12:58-0400 Body ucedlx748.02 kgLisa Aichholz Work Phone: [phone]02-16-2024 11:03-0500 Body baswfs843.02 kgLisa Aichholz Work Phone: [phone]02-16-2024 11:03-0500 Diastolic blood enytexja52 mm[Hg]Cheng Aichholz Work Phone: [phone]02-16-2024 11:03-0500 Heart rate95 /minLisa Aichholz Work Phone: [phone])348-[address] [place], [place] 1792202-16-2024 11:03-0500 Systolic blood ijvsymog002 mm[Hg]Cheng Aichholz Work Phone: [facility]12-18-2023 15:00-0500 Body ruikiw009.8 cmTondra Mapus Other [facility]12-18-2023 15:00-0500 Body mass index (BMI) [Ratio]36.94 kg/x3Bvpmmv Mapus Other [employer] Other 12-18-2023 15:00-0500Body napgbv632.8 kgTondra Mapus Other [facility]12-18-2023 15:00-0500 Diastolic blood wazekuam05 mm[Hg]Tondra Mapus Other [facility]12-18-2023 15:00-0500 Respiratory rate18 /minTondra Mapus Other [facility] [employer] Other 12-18-2023 15:00-8936JwL5% (BldA) [Mass fraction]95 % Tondra Mapus Other [facility] [employer] Other 12-18-2023 15:00-0500Systolic blood qayeecxe856 mm[Hg] Tondra Mapus Other [facility]10-04-2023 10:00-0400 Body rovues736.8 cmRjannet Scovanner Other [employer] Other 10-04-2023 10:00-0400Body mass index (BMI) [Ratio] 35.97 kg/m2Ryan Scovanner Other [employer] Other 10-04-2023 10:00-0400Body sagoux062.72 kgRyan Scovanner Other [employer] Other 10-04-2023 10:00-0400Diastolic blood llzeoric06 mm[Hg] Maxi Scovanner Other [employer] Other 10-04-2023 10:00-0400Systolic blood camlnywo452 mm[Hg] Maxi Scovanner Other [employer] Other 04-04-2023 11:00-0400Body gyyrzr968.8 cmCamerpierre Fernandez Other [employer] Other 04-04-2023 11:00-0400Body mass index (BMI) [Ratio] 34.43 kg/g3Pwgbfkc Ditty Other [employer] Other 04-04-2023 11:00-0400Body ldnelc116.86 kgCameron Ditty Other [employer] Other 04-04-2023 11:00-0400Diastolic blood ypojebpk78 mm[Hg] Amor Ditty Other [employer] Other 04-04-2023 11:00-0400Systolic blood ychvdafc937 mm[Hg] Amor Ditty Other [employer] Other 10-04-2022 11:00-0400Body .8 cmCameron Ditty Other [employer] Other 10-04-2022 11:00-0400Body mass index (BMI) [Ratio] 34.15 kg/i8Lyblnfl Ditty Other [employer] Other 10-04-2022 11:00-0400Body kuhdjd242.96 kgCameron Ditty Other [employer] Other 10-04-2022 11:00-0400Diastolic blood rijfsklz13 mm[Hg] Amor Ditty Other [employer] Other 10-04-2022 11:00-0400Systolic blood gfkjysux147 mm[Hg] Amor Ditty Other [employer] Other 03-18-2021 13:44-0400Body Nbpseiqnvgv10.9 [degF] [facility]BiivrEgryPktkye61-82-3291 13:44-0400BP Fzhrvcwir53 mm[Hg][facility]03-18-2021 13:44-0400BP Ppnqocen530 mm[Hg][facility] 02-06-2021 13:44-0400Pulse (Heart Rate)129 /minWythe [facility] Community HospitalMqtzeIqziVcifaz01-02-3668 13:44-0400Pulse Olyjjkcy17 %[facility] HospitalZijceXsujRwbkmf72-01-7897 13:44-0400 Respiratory Rate16 /[facility]02-18-2021 14:15-0500Body Yxnguqcrjck09.2 [degF][facility] HospitalLmdzeUxajEhealu63-35-9474 14:15-0500BP Jbydnqthx28 mm[Hg][facility] HospitalUavnoDpyfLwcpqc15-84-0533 14:15-0500BP Qbrzzkuq65 mm[Hg][facility] HospitalZzvkfDlkjSopkla68-81-6840 14:15-0500Pulse (Heart Rate)106 /[facility]02-18-2021 14:15-0500Pulse Lwsrzdmg66 %[facility] 01-09-2021 14:15-0500Respiratory Rate12 /[facility]02-05-2021 10:35-0500Body Rgpgtoasnfj16.1 [degF][facility] CampusRjwnnwSpabDsyyyh04-56-8725 10:35-0500 BP Ztayrnjko90 mm[Hg][facility] CampusUpwapfGkfnHnaxgl00-86-9712 10:35-0500BP Cadoeero636 mm[Hg][facility] CampusNgjxmmLwapVrsysr53-69-5728 10:35-0500Pulse (Heart Rate)108 /[facility] HospitalFiinxcUaclDjojul11-80-4270 10:35-0500Pulse Nwhfoeax32 %[facility] 12-27-2020 10:35-0500Respiratory Rate18 /[facility] HospitalPjiffsBmskEzvbac73-57-0477 14:09-0500Body Ybnkwjveavk57.81 [degF][facility] HospitalLlukwSxmhYzxyiy07-02-0517 14:09-0500BP Nparbwhxt33 mm[Hg][facility] HospitalWstjwBaggXghsbf41-76-2861 14:09-0500BP Gmzimtjm409 mm[Hg][facility] HospitalRwpftUvtyReuzlw25-08-8570 14:09-0500Pulse (Heart Rate) 101 /minWythe County Community HospitalJbtsfQiqsIvwovz56-25-4792 14:09-0500Pulse Fsxpyjcu26 %[facility] HospitalUeetnIugnGyvfrk75-70-9260 14:09-0500Respiratory Rate18 /[facility]12-31-2020 11:38-0500Body Dhfgpmldppi58.01 [degF][facility]12-31-2020 11:38-0500BP Djylqfckv36 mm[Hg][facility]12-31-2020 11:38-0500BP Diefwarr845 mm[Hg][facility]12-31-2020 11:38-0500Pulse (Heart Rate)96 /[facility] 11:38-0500Pulse Djcqvvkg29 %[place] [address]-31-2020 11:38-0500Respiratory Rate18 /minAmerican [facility] Health System12-28-2020 11:38-0500BMI (Body Mass Index)33.21 kg/d3IoxgzdlAmerican Academic Health System12-28-2020 11:38-0500Body kgAmerican [facility] Health System12-28-2020 11:38-9676Akvjnq730.8 cm [facility] Encounters Encounter DateEncounter TypeCare ProviderFacilityStart: 09-21-2025 End: 63-83-8081Wekdjo outpatient visit 15 minutesMicfelicia Freeman DO Work Phone: [facility] MedicineComment on above: Gastroesophageal reflux disease, unspecified whether esophagitis present (Primary Dx); Type 2 diabetes mellitus with foot ulcer, with long-term current use of insulin ([facility]); Benign essential HTN; Chronic midline low back pain without sciatica; Mixed hyperlipidemia due to type 2 diabetes mellitus (CMS-HCC)Start: 09-21-2025 End: 74-33-9802erakhkhzqlFKUFEMO D [facility] Ambulatory PPGStart: 09-12-2025 End: 62-67-7028yazpjmgetnSxonJeovany BRITO Work Phone: [phone]-[facility] Vascular SurgStart: 09-12-2025 End: 61-88-4989Lqrbwjp encounter procedureChan Quintanilla MD-[facility] Work Phone: Start: 08-30-2025 End: 65-12-4310Ocyoodlmo encounterCatGerman Hospital - Pharmacy Medication ManagementStart: 08-27-2025 End: 90-46-8555Uvyimhgbp encounterArt Freeman DO Work Phone: [facility] Physicians Family MedicineStart: 08-24-2025 End: 54-04-4779Gfqidlwsj encounterEv Marquez [facility] CenterMedica Physicians Family MedicineStart: 08-22-2025 End: 79-85-0463Ckefnds encounter procedureCathy Leggett APRN-CT [facility] [place] Work Phone: Start: 08-22-2025 End: 47-98-3455kgrngdtbpbLadfJeovany BRITO Work Phone: [facility] Work Phone: Start: 08-16-2025 End: 76-56-4006Iymrprwkf encounterEv Marquez CMAVermont Psychiatric Care HospitalMedica Physicians Family MedicineStart: 08-13-2025 End: 40-18-6001ffsldqcmswFWURBOM D BADIKMagruder Memorial HospitalComment on above: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 ([facility]) [E11.628, L84] (Primary Dx)Start: 08-10-2025 End: 58-55-0231Ubcklg outpatient visit 25 minutesMicfelicia Freeman DO Work Phone: [facility] Physicians Family MedicineComment on above: Type 2 diabetes mellitus with other circulatory complication, with long-term current use of insulin([facility]) (Primary Dx); Type 2 diabetes mellitus with foot ulcer, with long-term current use of insulin ([facility]); Benign essential HTN; Mixed hyperlipidemia due to type 2 diabetes mellitus ([facility]) ; Gastroesophageal reflux disease, unspecified whether esophagitis present; Chronic midline low back pain without sciatica; Ulcer of right foot with fat layer exposed ([facility])Start: 08-10-2025 End: 40-72-8467ladrpjadfdPOVCLUH D [facility]ADDunlap [facility] Ambulatory PPGStart: 07-17-2025 End: 81-44-8301katerhpnfdDdnofikcm Pharmacy Medication Management Work Phone: [facility] - Pharmacy Medication ManagementStart: 07-17-2025 End: 86-60-8317Skwvyj-up encounterMarshall County Healthcare Centerdaryn Freeman Work Phone: [facility] Physicians Family MedicineComment on above: Lipid panelStart: 07-16-2025 End: 60-59-9740Lkyvqwmr Support[address] - Pharmacy Medication ManagementComment on above:Type 2 diabetes mellitus with other circulatory complication, with long-term current use of insulin([facility]) (Primary Dx)Start: 51-46-9825Kqc-patient / Non-visitMabashir Quintanilla MD- [facility] Work Phone: Start: 07-09-2025 End: 08-50-7585Wwumkgnlg to same day surgery centerMabashir Quintanilla MD- Interventional Radiology Work Phone: Start: 07-09-2025 End: 56-78-3728oocvodmxjnCsel J Aichholz Work Phone: [facility] Work Phone: Start: 07-05-2025 End: 67-09-8005Uvjwdscje encounterProlawrence medical center Pharmacy Medication Management Work Phone: [facility] - Pharmacy Medication ManagementComment on above:Type 2 diabetes mellitus with foot ulcer, with long- term current use of insulin ([facility])Start: 07-05-2025 End: 56-46-6844Brkrglxjccen care manage srvc 14 day dischargeArt Freeman DO Work Phone: Pro[facility]abel[facility] Say Family MedicineComment on above: Ulcer of right foot with fat layer exposed ([facility]) (Primary Dx); Type 2 diabetes mellitus with foot ulcer, with long-term current use of insulin ([facility]); Hyperlipidemia, unspecified hyperlipidemia type; Gastroesophageal reflux disease, unspecified whether esophagitis present; Peripheral artery diseaseStart: 07-05-2025 End: 43-41-1324yfodeisiqwWWSLBZJ D [facility] Ambulatory PPGStart: 06-28-2025 End: 06-96-1798Mskzdzg encounter procedureMabashir Quintanilla MD-[facility] VascularStart: 06-28-2025 End: 97-02-6430niblglhzurYzfs J Aichholz Work Phone: [facility] Work Phone: Start: 06-28-2025 End: 66-22-2796reepkizphsDxni J Aicjesi Work Phone: [facility] Work Phone: Start: 06-28-2025 End: 08-86-4751Zdxhkwj encounter procedureCathy Ramirez APRYadkin Valley Community Hospital Vascular Surg Work Phone: Start: 06-07-2025 End: 79-93-9255nimqrflxsjNYUWXNGQ L [facility] Systemtart: 05-22-2025 End: 60-21-8206Suttsqmkj encounterSstacy Deal Family MedicineComment on above:ResultsStart: 05-16-2025 End: 86-69-9678Nfzbsq OnlyArt Freeman DO Work Phone: [facility] MedicineComment on above: Type 2 diabetes mellitus with foot ulcer, with long-term current use of insulin ([facility]) (Primary Dx)Start: 05-13-2025 End: 57-59-9317LjlaasPzyoeou D Badik DO Work Phone: [facility] Family MedicineComment on above: Type 2 diabetes mellitus with foot ulcer, with long-term current use of insulin ([facility])Start: 05-10-2025 End: [id number] outpatient visit 25 minutesArt Freeman DO Work Phone: [facility] Family MedicineComment on above: Type 2 diabetes mellitus with foot ulcer, with long-term current use of insulin ([facility]); Benign essential HTN; Gastroesophageal reflux disease, unspecified whether esophagitis present; Chronic midline low back pain without sciatica; Encounter for screening for malignant neoplasm of prostate; Fatigue, unspecified typeStart: 05-10-2025 End: [id number] mental health facility Ambulatory PPGStart: 05-02-2025 End: 66-73-6882pjqazbieniBSXAFGCPeaceHealth St. [facility] HospitalStart: 04-26-2025 End: 66-82-1107Tjclmr outpatient new 45 minutesArt Freeman DO Work Phone: [facility] Physicians Family MedicineComment on above: Benign essential HTN (Primary Dx); Type 2 diabetes mellitus with foot ulcer, with long-term current use of insulin ([facility]); Chronic midline low back pain without sciatica; Fatty liver disease, nonalcoholic; Visit for wound check; Hyperglycemia; Gastroesophageal reflux disease, unspecified whether esophagitis presentStart: 04-26-2025 End: 08-76-3686hrdcdqukemSZCCIIAState mental health facility Ambulatory PPGStart: 04-24-2025 End: 69-54-3843mhqivmkjvfDDBJ P [facility]YHol[facility] HospitalStart: 04-24-2025 End: 41-05-4233Lvpmkzh encounter procedureSherri Garcia 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-SERVICE DESK ANALYST Work Phone: [facility] Wound Care ClinicComment on above:Diabetic ulcer of right midfoot associated with type 2 diabetes mellitus, with muscle involvement without evidence of necrosis ([facility]) (Primary Dx); 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 ([facility])Start: 04-20-2025 End: 87-07-4145ltaorpwjweMuuxly D Grubic DO Work Phone: sOregon State Tuberculosis Hospitaltart: 04-18-2025 End: 77-22-4295Uziwgnkvd encounterJermoe Del Toro DO Work Phone: General SurgeryComment on above:Care Coordination (Appeal for GPOEM denial )Start: 04-11-2025 End: 73-30-4950Qpuagih encounter Vipul Garcia 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-SERVICE DESK ANALYST Work Phone: [facility] - Wound Care ClinicComment on above:Diabetic ulcer of right midfoot associated with type 2 diabetes mellitus, with muscle involvement without evidence of necrosis (CMS- HCC) (Primary Dx); History of transmetatarsal amputation of right foot (CMS-HCC); 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); Wound, open, foot with complication, left, initial encounter; Unstable ankle, rightStart: 04-11-2025 End: 67-74-6809mytavzjlbuEISK P [facility]YHol[facility] Hospital HospitalStart: 04-10-2025 End: 91-41-4754xboqnnhhqwKFKBIVC S CLINEFacility:[facility] HospitalStart: 04-10-2025 End: 39-60-2965phohrmeqabHFAHYH D GRUBICFacility:[facility] HospitalStart: 04-05-2025 End: 80-47-3554Muipaynfq encounterMicfelicia S Figueredo DO Work Phone: GastroenterologyComment on above:Care Coordination (Gastroparesis clinic: chart review; new patient call )Start: 03-28-2025 End: 48-67-2985Hpbxvn outpatient new 20 minutesSherri Garcia 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-SERVICE DESK ANALYST Work Phone: [facility] - Wound Care ClinicComment on above:Diabetic ulcer of right midfoot associated with type 2 diabetes mellitus, with muscle involvement without evidence of necrosis (CMS- HCC) (Primary Dx); History of transmetatarsal amputation of right foot (CMS-HCC); Visit for wound checkStart: 03-28-2025 End: 61-78-4815zbfylawyufMKUC P CH[facility]YHolzer Hospital HospitalStart: 03-04-2025 End: 67-58-1094Okfzszyrc department patient visitNO PCP NO PCPProGrand Lake Joint [facility] HospitalStart: 11-21-2024 End: 53-53-1823Oulunhzas encounterDavida Price MD Work Phone: GastroenterologyComment on above:Import Clerk - Other (Dr Yoon's office/request for office note)Start: 10-24-2024 End: 10-95-3813Urpwzab encounter procedureDavida Price MD Work Phone: GastroenterologyComment on above:Gastroparesis (Primary Dx)Start: 10-24-2024 End: 76-39-9332scpdhjswgmQCJYOVA LEMBOFacility:[facility] Centertart: 00-10-1798Vkzpiyggr encounterMicfelicia Figueredo DO Work Phone: GastroenterologyStart: 06-12-2024 End: 57-10-4983cximefmollEeji J Aichholz Work Phone: [facility] Work Phone: Start: 06-12-2024 End: 06-53-8417Zaplcjw encounter procedureLisa Aichholz Work Phone: [facility] Ctr-Nuc [facility] [place] Work Phone: Start: 06-06-2024 End: 33-99-4326mjgbzwvaorQkks J Aichholz Work Phone: [facility] Work Phone: Start: 06-06-2024 End: 51-85-8013Pikcola encounter procedureLisa Aichholz Work Phone: [facility] Ctr-Nuc [facility] [place] Work Phone: Start: 05-09-2024 End: 59-75-8524Thuwhlo encounter procedureLisa Aichholz Work Phone: [facility] Gastroenterology Work Phone: Start: 03-13-2024 End: 12-32-7405ocivmiwndbYXQE AICHHOLZNot AvailableStart: 98-04-3256Yug-patient / Non-visitLisa Aichholz Work Phone: [facility] Gastroenterology Work Phone: Start: 02-03-2024 End: 53-10-9603Ytikpmjlm to same day surgery centerLisa Aichholz Work Phone: [facility] Ctr-Digestive Health Work Phone: Start: 02-03-2024 End: 25-46-0219zgkvaolwteMhjx J Aichholz Work Phone: [facility] Work Phone: Start: 01-07-2024 End: 70-69-5821Tvwsder encounter procedureLisa Aichholz Work Phone: [facility] Gastroenterology Work Phone: Start: 01-06-2024 End: 03-61-4998oolmifpsevGPZJ AICHHOLZNot AvailableStart: 86-90-6356Bvledr flowsheetLisa Aichholz WEIGHT CLERK Work Phone: [facility] FMStart: 83-60-3690Omnase flowsheetLisa Aichholz WEIGHT CLERK Work Phone: [facility] FMStart: 11-25-2023 End: 95-27-3757heztxdapjyLpef Scovanner Other [place] Other Start: 78-80-6727Fdigpo outpatient visit 15 minutes Maxi Huber GastroenterologyStart: 29-65-5062Shxvdns encounter procedure Cheng Bel Work Phone: [facility]-Start: 11-09-2023 End: 81-59-3173gkutzvnkbgOnzgan Mapus Other [facility] [place] Other Start: 02-17-3308Bwuegkxij encounterTondra Tyrell Zazueta [facility] Care ClinicStart: 11-08-2023 End: 24-47-8357Kbkhsomzsv RecurringLisa Calixtohholnai Work Phone: [facility] Work Phone: Start: 11-08-2023 End: 20-18-5432mwgtcalusvDmdi J Aichjesi Work Phone: [facility] [employer] Other Start: 35-39-5732NNPO visit new patientSebastián KruseLoring Hospital ClinicStart: 11-08-2023 End: 63-18-9505Pgklnzr encounter procedureLisa Calixtohjesi Work Phone: [facility] Work Phone: Start: 11-02-2023 End: 93-77-0367dcfahvffrpUTFM CALIXTOHHOLZNot AvailableStart: 09-15-2023 End: 86-82-5536kmxreaoundTvwh Fitt Other [facility] [place] Other Start: 23-98-1135Vrhxqvtpc encounterDawn [facility] ClinicStart: 09-13-2023 End: 95-62-7086qrglqhusytSsxt Fitt Other [employer]Oz[employer] [place] Other Start: 92-75-8687Ewjvjzthh encounterDawn [facility] Hospitaltart: 08-25-2023 End: 10-94-9481vzllsqarpgCyjj Scovanner Other noOz[employer] World [place] Other Start: 07-75-5936Bnfkwu outpatient visit 15 minutes Maxi CroftG GastroenterologyStart: 03-18-2023 End: 05-86-7425msojkpnjieAJVKPLCV TROTTIFacility:B5Hbpal: 02-23-2023 End: 87-82-1550ikmoszswqxQcrasgv Ditty Other [facility] [employer] Other Start: 16-81-5766Mlkzbda encounter procedureCamamaury AdamsyERNESTOG GastroenterologyStart: 08-25-2022 End: 13-87-8542rvcijdbhhgUpifmis Ditty Other noOz[employer] World [place] Other Start: 88-71-5550Fpikmtm encounter procedureCameroesdras CarterG GastroenterologyStart: 04-02-2021 End: 31-29-0366luzhfrvnlgDGWJHSITKP W CHINRogerSelect Medical [facility] Start: 02-06-2021 End: 16-30-0195Gbrlbat encounter procedureUCHENNA MARTINTUS [facility] Medical Centertart: 02-06-2021 End: 91-44-8596Fsfmnsm encounter procedureUchjenna Bell Work Phone: [facility] Wound CareComment on above:Foot abscess, left (Primary Dx)Start: 01-29-2021 End: 91-67-3077Mhwwcl OnlyTsering Silvestre Work Phone: [facility] Start: 01-24-2021 End: 39-03-2395Hqcibhf encounter [facility]Sy[facility] Start: 01-24-2021 End: 12-63-6069Cpqornd encounter procedureWestern Wisconsin Healthr Work Phone: [facility] Wound CareComment on above:Foot abscess, left (Primary Dx); Charcot foot due to diabetes mellitus (HCC); MSSA (methicillin susceptible Staphylococcus aureus) infectionStart: 01-24-2021 End: 94-70-0264Nbtida outpatient visit 15 fredyStephanierachana Millicent Cherry Work Phone: [phone] [place] [address] Wound CareComment on above:Subacute osteomyelitis of left foot (HCC) (Primary Dx)Start: 01-09-2021 End: 29-57-7311Epdhrtc encounter procedureSycamore Medical Center Start: 01-09-2021 End: 61-62-2537Hnhosflldr hospital visit by physicianSouthern [facility] Medical Centerusman Harbinger Work Phone: [phone] [place] [address] DiagnosticsComment on above:Arrived Start: 01-09-2021 End: 21-45-4729Bqqsno outpatient visit 25 minutesSouthern [facility] Medical Centerusman Harbinger Work Phone: [phone] [place] [address] Wound CareComment on above: Charcot's joint of ankle, unspecified laterality (Primary Dx)Start: 01-09-2021 End: 25-70-2501Idejlmn encounter procedureUchjenna Escobar Ezarline Work Phone: [phone] [place] [address] Wound CareComment on above:Subacute osteomyelitis of left foot (HCC) (Primary Dx)Start: 12-27-2020 End: 59-11-7400Jrevklx encounter [facility] Start: 12-27-2020 End: 07-38-6054Tumpol outpatient visit [address] [facility] Medical Centerusman ReeceDilip Work Phone: [phone] [place] [address] Wound CareComment on above:Subacute osteomyelitis of left foot (HCC) (Primary Dx); Charcot's joint of ankle, unspecified lateralityStart: 12-19-2020 End: 73-63-0926Xcfoduy encounter procedureUCHENNA MICHELLE BELLMagruder Memorial Hospitaltart: 12-19-2020 End: 29-96-3379Mtwcpwz encounter procedureUchjenna Escobar Ezike Work Phone: [place] [address] Wound CareComment on above:Subacute osteomyelitis of left foot (HCC) (Primary Dx)Start: 11-20-2020 End: 93-33-8256Zxsszkszhhwmk procedureCathy J CatronOhioHealthStart: 11-20-2020 Patient encounter procedureCATHY J CATRONHomeHealthStart: 11-05-2020 End: 06-45-6748Kcphanreca and management of inpatientPROVIDER NOT IN SYSTEM [facility] Hospitaltart: 11-05-2020 End: 80-70-7192Swfjvhimmk and management of inpatientGeneric [facility] Work Phone: [facility] Surgical IntermediateComment on above:Other acute osteomyelitis of left foot (HCC) (Primary Dx); Uncontrolled type 2 diabetes mellitus with peripheral neuropathy (HCC); Secondary DM with DKA (HCC); 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, with long- term current use ofinsulin, macular edema presence unspecified, unspecified proliferative retinopathy type (HCC)Start: 12-26-2018 End: 64-09-4327Rpvzrgv encounter procedureJOHN Y JUNFacility:[facility] Procedures DateProcedureProcedure DetailPerforming ClinicianStart: 42-45-4714Tjtqqqmthj glycosylated e9xDtewsbzArt Freeman DO Work Phone: Start: 07-24-9103Ofafo depression screening assessment Art Freeman DO Work Phone: Start: 22-94-0911XB angiography of headLisa Bel WEIGHT CLERK-C Work Phone: Start: 80-80-9411NW angiography of neck vesselsLisa Bel WEIGHT CLERK-C Work Phone: Start: 64-33-5222Oqclw depression screening assessment Art Freeman DO Work Phone: Start: 53-47-0316KG Angiogram w/TLA/Stent Right Leg (Right)Cheng Bel Work Phone: Start: 64-64-6596Zrtoe depression screening assessment [facility] Work Phone: [phone]: 99-29-2420Xwxaym-up visitFollow-upMICHAEDaryn FREEMANStart: 62-99-7880Mykcy depression screening assessmentArt Freeman DO Work Phone: Start: 13-44-2568Mtadf depression screening assessment Art Freeman DO Work Phone: Start: 63-21-3898FWBQLNK COMMUNICATIONSherri Garcia APRN-SERVICE DESK ANALYST Work Phone: Start: 16-55-4783Iwnwj immobilization, pressure, and attention to woundMary P Kaitlynn 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-SERVICE DESK ANALYST Work Phone: Start: 44-58-3816XOKTXKJ COMMUNICATIONMary P Kaitlynn 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-SERVICE DESK ANALYST Work Phone: Start: 67-81-0790Pordp immobilization, pressure, and attention to woundMary P Kaitlynn 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-SERVICE DESK ANALYST Work Phone: Start: 02-02-2342Lkqzj immobilization, pressure, and attention to woundMary P Kaitlynn 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-SERVICE DESK ANALYST Work Phone: Start: 39-00-6963Tocugcjbrirm gastric emptying study Cheng Bel Work Phone: Start: 28-60-0748Aaarommc tomography of abdomen and pelvis with contrastLisa Deniserothman orthopaedic specialty hospitalnia Work Phone: Start: 87-38-6266Svztq 1996 panel - Serum or Plasma Davida Price MD Work Phone: Start: 56-62-6441Cuxxsqouzxwo [Mass/volume] in Urine by Test stripSherri Kaitlynn CAIN-SERVICE DESK ANALYST Work Phone: Start: 27-12-2488EypjtbnnwyqkegekgviyddenttRrxs Jeremiemedina hospitalnia Work Phone: Start: 67-67-6324E-ray of left ankleDina Millicent Cherry Work Phone: start: 09-59-0013K-ray of left footDina Millicent Cherry Work Phone: start: 33-70-4218Jlhwnzr microbial cultureDina Millicent Cherry Work Phone: start: 54-02-7262Qmwhqjkq identified in Bone by Aerobe cultureDina Millicent Cherry Work Phone: start: 49-85-4219HRRPWYRyur Millicent Cherry Work Phone: start: 36-22-8412Xhlqimg [Mass/volume] in Bloodmed Mohamed Mosalem Work Phone: Start: 78-86-6933Blqfike [Mass/volume] in Bloodmed Mohamed Mosalem Work Phone: Start: 01-61-3299Eulsrhb [Mass/volume] in Bloodmed Mohamed Mosalem Work Phone: Start: 74-12-0657Riyiw metabolic 2000 panel - Serum or PlasmaBaNotifixiousat Xirrus Work Phone: Start: 46-24-2272Qmwzthfs blood count (hemogram) panel - Blood by Automated countBaNotifixiousat [employer]irrus Work Phone: Start: 49-68-5437Qfncxufsq [Mass/volume] in Serum or PlasmaBaCromoUp Work Phone: Start: 46-43-3395Fiiupmx [Mass/volume] in Bloodmed Mohamed Mosalem Work Phone: Start: 63-90-8867Ldevvcj [Mass/volume] in Bloodmed Mohamed Mosalem Work Phone: Start: 62-25-8326Kqixspr [Mass/volume] in Bloodmed Mohamed Mosalem Work Phone: Start: 93-99-7684Idjiuqa [Mass/volume] in Blood Flako Pinedo Work Phone: Start: 82-05-4074Vhrlm metabolic 2000 panel - Serum or PlasmaBahzat Xirrus Work Phone: Start: 11-20-2020C reactive protein [Mass/volume] in Serum or PlasmaJeremiah José Work Phone: start: 57-28-7265Vgiypuwe blood count (hemogram) panel - Blood by Automated countFRWD Technologiesat [employer] Work Phone: Start: 14-33-3630Ioqooglnlob sedimentation rate by Westergren methodJeremiah José Work Phone: start: 58-00-8576Gkhnujnvk [Mass/volume] in Serum or PlasmaBahzat Xirrus Work Phone: Start: 92-74-5613Tdlaygu [Mass/volume] in Blood Flako Pinedo Work Phone: Start: 31-65-7450Rvjytll [Mass/volume] in Blood Flako Pinedo Work Phone: Start: 03-20-6286Jbryoum [Mass/volume] in Blood Flako Pinedo Work Phone: Start: 09-00-6128Jkaptsx [Mass/volume] in Blood Flako Pinedo Work Phone: Start: 57-22-9324Llryh metabolic 2000 panel - Serum or PlasmaFRWD Technologiesat [employer] Work Phone: Start: 50-49-9646Uhwqrnig blood count (hemogram) panel - Blood by Automated countCareinSync Work Phone: Start: 11-49-0313Winprxwsc [Mass/volume] in Serum or PlasmaBahzat Xirrus Work Phone: Start: 13-62-1267Eaxkxxn [Mass/volume] in Blood Flako Pinedo Work Phone: Start: 55-37-8495Sbojiwu [Mass/volume] in Blood Flako Pinedo Work Phone: Start: 50-40-0298Phzcsbf [Mass/volume] in Blood Flako Pinedo Work Phone: Start: 97-80-5502Eegffyfzm on tissue specimenLeanne Cherry Work Phone: start: 80-66-8792Xeenelsu identified in Bone by Aerobe Daniel Cherry Work Phone: [phone]-tart: 75-90-1616Enrxtrpy identified in Unspecified specimen by Anaerobe Erinnadia Cherry Work Phone: [phone]-tart: 11-18-2020 End: 90-70-2286AGMNCHKP AND DRAINAGE FOOT/ANKLELeanne Cherry Work Phone: [phone]-tart: 78-91-6412Fzumbqk [Mass/volume] in Blood Flako Pinedo Work Phone: Start: 22-08-0333Snsdy metabolic 2000 panel - Serum or PlasmaBaNotifixiousat Xirrus Work Phone: Start: 11-18-2020C reactive protein [Mass/volume] in Serum or PlasmaDina Millicent Cherry Work Phone: [phone]: 65-62-7429Fctyfjpn blood count (hemogram) panel - Blood by Automated countBaCromoUp Work Phone: Start: 05-36-9406Oqlkjahzbcp sedimentation rate by Westergren methodLeanne Cherry Work Phone: [phone]: 79-82-9559Rsfkdatwp [Mass/volume] in Serum or PlasmaBaNotifixiousat Xirrus Work Phone: Start: 41-17-2708Smlkpci [Mass/volume] in Blood Flako Pinedo Work Phone: Start: 13-53-9536wTZS in Blood by Coagulation assay Braeden Conte Work Phone: start: 68-10-7924Ayogkrs [Mass/volume] in Blood Flako Pinedo Work Phone: Start: 77-99-7057Jfrcsun [Mass/volume] in Blood Flako Pinedo Work Phone: Start: 48-39-8675Kbbebrc microbial cultureBraeden Conte Work Phone: start: 77-19-5133Lrnjzme [Mass/volume] in Blood Flako Pinedo Work Phone: Start: 24-94-0525Ztwwm metabolic 2000 panel - Serum or PlasmaBahzat Xirrus Work Phone: Start: 64-00-1426Qqdregtr blood count with white cell differential, automatedBraeden Conte Work Phone: start: 56-58-9800Kuqqtfan blood count with white cell differential, manualBraeden Conte Work Phone: start: 80-27-1547Mvnbyzsbi [Mass/volume] in Serum or PlasmaBahzat Xirrus Work Phone: Start: 15-20-6670Lhmpnky [Mass/volume] in Blood Flako Pinedo Work Phone: Start: 03-25-7979Aabgwml [Mass/volume] in Blood Flako Pinedo Work Phone: Start: 41-91-7920Rtzfono [Mass/volume] in Blood Flako Pinedo Work Phone: Start: 91-94-5931Outaran [Mass/volume] in Blood Flako Pinedo Work Phone: Start: 87-73-3895Ymcrt metabolic 2000 panel - Serum or PlasmaBahzat Xirrus Work Phone: Start: 79-46-0445Wdvdcdek blood count (hemogram) panel - Blood by Automated countBaNotifixiousat Xirrus Work Phone: Start: 61-25-8606Vpzfkavipyy sedimentation rate by Westergren methodBraeden Conte Work Phone: start: 24-11-2534Gvuhlnkss [Mass/volume] in Serum or PlasmaBahzat Xirrus Work Phone: Start: 78-97-3172Lvuwnsx [Mass/volume] in Blood Flako Pinedo Work Phone: Start: 81-54-4335S-ray of left footBrian Nam Conte Work Phone: start: 28-38-2229Nwnfptr [Mass/volume] in Blood Flako Pinedo Work Phone: Start: 77-24-9920Bsbwicu [Mass/volume] in Blood Flako Pinedo Work Phone: Start: 95-50-2340Cw abdomen & pelvis w/o contrast materialClearsky Rehabilitation Hospital Of Avondaleat [employer] Work Phone: Start: 56-96-1886Uyaqcsk [Mass/volume] in Blood Flako Pinedo Work Phone: Start: 40-63-6718Rfizh metabolic 2000 panel - Serum or PlasmaBaat [employer] Work Phone: Start: 10-85-3157Iwhjoveu blood count (hemogram) panel - Blood by Automated countYappat [employer] Work Phone: Start: 08-41-1412Dluvxdiwd [Mass/volume] in Serum or PlasmaBahzat X[employer]rus Work Phone: Start: 33-65-1066Jsotier [Mass/volume] in Blood Flako Pinedo Work Phone: Start: 26-08-3417Prgxsui [Mass/volume] in Blood Flako Pinedo Work Phone: Start: 89-45-2496Cduvkkm [Mass/volume] in Blood Flako Pinedo Work Phone: Start: 09-52-0612Iswjeuv [Mass/volume] in Blood Flako Pinedo Work Phone: Start: 07-15-9239Qztka metabolic 2000 panel - Serum or PlasmaBaat [employer]rus Work Phone: Start: 59-92-9376Zkbbfgsz blood count (hemogram) panel - Blood by Automated countCareinSync Work Phone: Start: 27-15-1589Rxnzrmroh [Mass/volume] in Serum or PlasmaBahzat Xirrus Work Phone: Start: 90-60-8286Yzfmboq [Mass/volume] in Blood Flako Pinedo Work Phone: Start: 91-15-9833Yktgays [Mass/volume] in Blood Flako Pinedo Work Phone: Start: 04-26-4790Xcmteeu ultrasonography of artery of lower [facility] Work Phone: start: 51-79-2286Jsxoxgm emptying imaging studyBaselect medical specialty hospital - [facility] Xirrus Work Phone: Start: 33-77-5478Jwwhfff [Mass/volume] in Blood Flako Pinedo Work Phone: Start: 05-58-9411Plobrth [Mass/volume] in Blood Flako Pinedo Work Phone: Start: 93-64-7068Wuyuc metabolic 2000 panel - Serum or PlasmaBaat [employer]rus Work Phone: Start: 04-46-2731Fzylvujl blood count (hemogram) panel - Blood by Automated countCareinSync Work Phone: Start: 70-39-4763Oawdusoln [Mass/volume] in Serum or PlasmaBaat [employer] Work Phone: Start: 72-44-1783Gelfemq [Mass/volume] in Blood Flako Pinedo Work Phone: start: 71-56-8832Qfegdzu [Mass/volume] in Blood Flako Pinedo Work Phone: Start: 25-88-2265Bjrhlva [Mass/volume] in Blood Flako Pinedo Work Phone: Start: 30-21-1025GWCPU-19/INFLUENZA A,B MOLECULAR Bahzat Hugo Work Phone: Start: 27-66-3082Zgaxrfb [Mass/volume] in Blood Flako Pinedo Work Phone: Start: 31-61-7605Gqvma metabolic 2000 panel - Serum or PlasmaBaat [facility] Work Phone: Start: 49-37-1928Nrxhbehv blood count (hemogram) panel - Blood by Automated countBaselect medical specialty hospital [facility] [place] [facility] Work Phone: Start: 23-51-0628Qevazukfj [Mass/volume] in Serum or PlasmaBahzat Hugo Work Phone: Start: 83-68-1254Mkfekadco [Mass/volume] in Serum or PlasmaLisa Alicia Mellwood Work Phone: Start: 77-13-1302Sgctkmh [Mass/volume] in Blood Flako Pinedo Work Phone: Start: 55-95-9544Pnpugdg [Mass/volume] in Blood Flako Pinedo Work Phone: Start: 61-89-8528Aikqbtwo identified in Bone by Aerobe Daniel Cherry Work Phone: start: 67-20-9959Htlbxdpl identified in Unspecified specimen by Anaerobe Daniel Cherry Work Phone: start: 88-19-2130Pvlpevvnk on tissue specimenDina Millicent Cherry Work Phone: start: 11-11-2020 End: 60-31-0342EZXYJOQXOEO WOUND VACDina Millicent Cherry Work Phone: start: 11-11-2020 End: 01-01-1378YJYKAMBLSYZ AND DRESSING CHANGEDina Millicent Cherry Work Phone: start: 96-67-6921Lfedgoe [Mass/volume] in Blood Flako Pinedo Work Phone: Start: 16-71-5789Ntbylwo [Mass/volume] in Blood Flako Pinedo Work Phone: Start: 96-60-0887Wzofr metabolic 2000 panel - Serum or PlasmaBaNotifixiousat Xirrus Work Phone: Start: 04-07-2421Hwsoslsx blood count (hemogram) panel - Blood by Automated countCareinSync Work Phone: Start: 62-30-9508Bgednhkle [Mass/volume] in Serum or PlasmaBahzat Xirrus Work Phone: Start: 60-50-3457Ffgzfmy [Mass/volume] in Blood Flako Pinedo Work Phone: Start: 85-78-8618Ccpbeiy [Mass/volume] in Blood Flako Pinedo Work Phone: Start: 84-35-8863Apppxus [Mass/volume] in Blood Flako Pinedo Work Phone: Start: 12-74-0971Gooisau [Mass/volume] in Blood Flako Pinedo Work Phone: Start: 19-55-6819Boihg metabolic 2000 panel - Serum or PlasmaBaNotifixiousat Xirrus Work Phone: Start: 79-96-6379Jyydctnh blood count (hemogram) panel - Blood by Automated countFRWD Technologiesat [employer] Work Phone: Start: 26-66-4590Ptarrxpuf [Mass/volume] in Serum or PlasmaBahzat Xirrus Work Phone: Start: 2020 End: 02-10-3327Apzfisn [Mass/volume] in BloodFlako Pinedo Work Phone: Start: 19-62-6300Pmstdxn [Mass/volume] in Blood Flako Pinedo Work Phone: Start: 11-09-2020 End: 47-44-0094Ktkzrxy [Mass/volume] in BloodFlako Pinedo Work Phone: Start: 98-76-2016Quaizkw [Mass/volume] in Blood Flako Pinedo Work Phone: Start: 44-76-2117Qfwflpk [Mass/volume] in Blood Flako Pinedo Work Phone: Start: 50-12-4386Finmlyy [Mass/volume] in Blood Flako Pinedo Work Phone: Start: 59-68-9611Hdjfz metabolic 2000 panel - Serum or PlasmaBahzat Xirrus Work Phone: Start: 77-46-4257Lzxzlkil blood count (hemogram) panel - Blood by Automated countFRWD Technologiesat [employer] Work Phone: Start: 76-30-7409Qbuwgnsjm [Mass/volume] in Serum or PlasmaBahzat Xirrus Work Phone: Start: 22-93-8197Jynkpiy [Mass/volume] in Blood Flako Pinedo Work Phone: Start: 59-38-0541Bcbqudz [Mass/volume] in Blood Flako Pinedo Work Phone: Start: 54-97-4843Dtzgvlu [Mass/volume] in Blood Flako Pinedo Work Phone: Start: 70-44-9662Mtuhrdy [Mass/volume] in Blood Flako Pinedo Work Phone: Start: 62-81-3957Dvwxdvb [Mass/volume] in Blood Flako Pinedo Work Phone: Start: 96-80-0558Kadmk metabolic 2000 panel - Serum or PlasmaAlaa AlaE-Trader Groupad Work Phone: Start: 43-26-7339Cfbyqao [Mass/volume] in Blood Flako Pinedo Work Phone: Start: 10-40-8439Wzapmco [Mass/volume] in Blood Flako Pinedo Work Phone: Start: 41-01-4900Wsrygwo microbial cultureGabriella [place] Work Phone: Start: 64-53-1325Wipelhd [Mass/volume] in Blood Flako Pinedo Work Phone: Start: 34-71-0346Fyqaeupm blood count with white cell differential, automatedAlaa AlaE-Trader Groupad Work Phone: Start: 10-42-2402Peaocjpl blood count with white cell differential, manualAlaa AlaDiskonHunter.com Work Phone: Start: 11-95-9683Mzbesefz identified in Unspecified specimen by Aerobe cultureFlako Pinedo Work Phone: Start: 89-38-9943Qseamdf [Mass/volume] in Blood Flako Pinedo Work Phone: Start: 69-22-4049Kxsucix [Mass/volume] in Blood Flako Pinedo Work Phone: Start: 37-12-9486Adnzcwb [Mass/volume] in Blood Flako Pinedo Work Phone: Start: 90-27-9805Qwggfge [Mass/volume] in Blood Flako Pinedo Work Phone: Start: 11-06-2020 End: 83-85-8428Dvk lower extrem oth/thn jt w/o & w/contr matrFlako Pinedo Work Phone: Start: 59-03-8976Dvfugkv [Mass/volume] in Blood Flako Pinedo Work Phone: Start: 02-42-7019Efvqsvj/Creatinine [Ratio] in Urine Flako Pinedo Work Phone: Start: 08-75-9474GhjztyaymeKklntiyj Viral Pinedo Work Phone: Start: 36-67-6294Bzktvuj [Mass/volume] in Blood Flako Pinedo Work Phone: Start: 63-85-5937Osjhuxl microbial cultureBraeden Conte Work Phone: start: 11-06-2020 End: 41-85-0534X-ray of left footBraeden Conte Work Phone: start: 05-04-3771Puoeuqgegjby imaging procedure External TranscribedStart: 77-38-8289Iqebgkzwvbmj tomography, limited studies External TranscribedStart: 51-12-2364Jmvholh [Mass/volume] in BloodFlako Pinedo Work Phone: Start: 51-96-3998Ocegjdtb blood count with white cell differential, automatedFlako Pinedo Work Phone: Start: 20-35-4015Qpdkkjzy blood count with white cell differential, manualFlako Pinedo Work Phone: Start: 10-53-4269Jgpguio [Moles/volume] in Serum or PlasmaFlako Pinedo Work Phone: Start: 00-41-0462Vdppxwiqj [Mass/volume] in Serum or PlasmaFlako Pinedo Work Phone: Start: 43-25-2184Bdjhk function 2000 panel - Serum or PlasmaFlako Pinedo Work Phone: Start: 70-01-9383Thcvpxinzmj [Units/volume] in Serum or Plasma by Detection limit <= 0.005 mIU/LKhalmarina Pinedo Work Phone: Start: 69-23-3898Tmkun of lactateFlako Pniedo Work Phone: Start: 11-05-2020C>3< complement assayFlako Pinedo Work Phone: Start: 11-05-2020C>4< complement assayFlako Pinedo Work Phone: Start: 08-34-9873Rotpzvln measurementFlako Pinedo Work Phone: Start: 34-58-5531Qrdqiae [Moles/volume] in Serum or PlasmaFlako Pinedo Work Phone: Start: 11-05-2020 End: 24-51-9626Lvbexvnt identified in Blood by CultureFlako Pinedo Work Phone: Start: 54-99-0614Gpihoyvxsu exam chest single view Flako Pinedo Work Phone: Start: 71-73-4476Ricf hydroxybutyrate [Moles/volume] in Serum or PlasmaFlako Pinedo Work Phone: Start: 11-05-2020C reactive protein [Mass/volume] in Serum or PlasmaFlako Pinedo Work Phone: Start: 88-32-5921Vrriwgtp blood count with white cell differential, automatedFlako Pinedo Work Phone: Start: 17-69-1545Etylajef blood count with white cell differential, manualFlako Pinedo Work Phone: Start: 72-76-7704Jqnpuakltwysx metabolic 2000 panel - Serum or PlasmaFlako Pinedo Work Phone: Start: 13-16-0684Ndohuzgo kinase [Enzymatic activity/volume] in Serum or PlasmaFlako Pinedo Work Phone: Start: 12-24-7570Nuavsbvfaxa sedimentation rate by Westergren methodFlako Pinedo Work Phone: Start: 37-75-4866Obaczzyutv A1c/Hemoglobin.total in BloodFlako Pinedo Work Phone: Start: 14-34-0193Ohciyyudj [Mass/volume] in Serum or PlasmaFlako Pinedo Work Phone: Start: 23-03-7534Awfhwxunb [Mass/volume] in Serum or PlasmaFlako Pinedo Work Phone: Start: 15-29-5064Odfqqixkitrhx [Mass/volume] in Serum or PlasmaFlako Pinedo Work Phone: Start: 58-29-4055Osqjbbrd measurementFlako Pinedo Work Phone: Start: 14-35-5983Wfbvvmhsiv examination and evaluation Generic [facility] Plan of Treatment DateCare ActivityDetailAuthorStart: 99-52-5036ASjJ,Tdap and Td Vaccines (2 - Td or Tdap)DTaP,Tdap and Td Vaccines (2 - Td or Tdap)[facility] SystemStart: 51-82-1005Npeno microalbumin profileDTaP,Tdap,Td Vaccine (2 - Td or Tdap) [facility]: 57-61-1950Ukyzw panelLipid ScreeningFort [facility] Hospital Start: 07-99-3029Kcxxmeel ScreeningDiabetes ScreeningCleHolmes County Joel Pomerene Memorial Hospitaltart: 53-64-7287Ueido BMI ScreeningAdult BMI ScreeningProNationwide Children'S Hospital SystemStart: 21-55-7434Cpvomyjuzf ScreeningDepression ScreeningProNationwide Children'S Hospital SystemStart: 36-52-1866Xomrfge ScreeningTobacco ScreeningProNationwide Children'S Hospital SystemStart: 20-32-1657Riqwq BMI ScreeningAdult BMI ScreeningAdams County Regional Medical Centerca Health SystemStart: 98-98-2636Nasuy BMI ScreeningAdult BMI ScreeningProMercy Health – The Jewish Hospitalca Health SystemStart: 97-27-8437Bgcwyurhdi ScreeningDepression ScreeningAdams County Regional Medical Centerca [facility] SystemStart: 80-81-1366Ogxsbd Use: CardiovascularStatin Use: CardiovascularProMedica Health SystemStart: 70-44-5653Meaxln Use: DiabeticStatin Use: DiabeticProMercy Health – The Jewish Hospitalca [facility] SystemStart: 56-13-4204Feflefr ScreeningTobacco ScreeningAdams County Regional Medical Centerca [facility] Start: 96-93-3235Voljf BMI ScreeningAdult BMI ScreeningAdams County Regional Medical Centerca [facility] Start: 39-36-6369Vyfec BMI ScreeningAdult BMI ScreeningAdams County Regional Medical Centerca [facility] Start: 73-07-3987Nouoalticd ScreeningDepression ScreeningAdams County Regional Medical Centerca [facility] Start: 96-30-8957Pvorrcc ScreeningTobacco ScreeningAdams County Regional Medical Centerca [facility] SystemStart: 96-85-4437Fmcmu BMI ScreeningAdult BMI ScreeningAdams County Regional Medical Centerca [facility] SystemStart: 25-47-1173Luwqihsfma ScreeningDepression ScreeningAdams County Regional Medical Centerca [facility] SystemStart: 03-24-7034Ruhydp Use: CardiovascularStatin Use: CardiovascularAdams County Regional Medical Centerca [facility] SystemStart: 67-62-2953Rjvkpz Use: DiabeticStatin Use: DiabeticAdams County Regional Medical Centerca [facility] SystemStart: 06-05-5999Vlndkfg ScreeningTobacco ScreeningAdams County Regional Medical Centerca [facility] Start: 45-54-4032Fozyi BMI ScreeningAdult BMI ScreeningAdams County Regional Medical Centerca [facility] Start: 48-09-7041Kvurdbipmt ScreeningDepression ScreeningAdams County Regional Medical Centerca [facility] Start: 52-89-3460Dmmdvrl ScreeningTobacco ScreeningAdams County Regional Medical Centerca [facility] SystemStart: 00-69-0558Cashzcy ScreeningTobacco ScreeningAdams County Regional Medical Centerca [facility] SystemStart: 16-28-5108Kmzpvze ScreeningTobacco ScreeningAdams County Regional Medical Centerca [facility] SystemStart: 73-60-7290Byjbf BMI ScreeningAdult BMI ScreeningVermont Psychiatric Care HospitalMedica [facility] SystemStart: 12-24-2025 End: 81-92-3374Bcnhabeo Irqpalt5012/24/2025 11:00 AM EST Clinical Support [facility] [address] [facility] [place] [place] [address] Art Freeman, DO [address] [facility], [address] [place] [address] Hayden Arguello MedicineStart: 18-00-2293Xkdqycex screeningDiabetes: Retinopathy ScreeningResearch Medical Center-Brookside CampusStart: 09-21-2025 End: 46-72-5136Ujchutgz Eohliom9309/21/2025 8:30 AM EDT Clinical Support [facility] [address] [place] [address] Art Freeman, DO [address] [facility], [facility] [address], [place] [address] Hayden Arguello MedicineStart: 08-30-2025 End: 94-24-6423Bjnhewea Hlssveb8908/30/2025 9:30 AM EDT Clinical Support [facility] [address] [place] [address] YgxHxmfrnKettering [facility] - Pharmacy Medication ManagementStart: 08-13-2025 End: 68-16-3467Dpzvsems Iembwqu6208/13/2025 8:00 AM EDT Clinical Support [facility] [address] [place] [address] UxiIvtibqKettering Health [facility] - Pharmacy Medication ManagementStart: 08-10-2025 End: 47-63-9222Jdfwyac encounter swhwciiay72/19/2025 10:00 AM EDT Office Visit [facility] [address] [facility] [address] [place], [place] [address] Art Freeman, DO [address] [facility], [address] [place] [address] Hayden Arguello MedicineStart: 53-09-0805ShytbfvbmHenry County Hospital Start: 07-16-2025 End: 16-13-6918Rtpisqez Zjgezsh4307/16/2025 8:00 AM EDT Clinical Support [facility] [address] [place] [address] WfsRccwic [facility] - Pharmacy Medication ManagementStart: 41-41-2694Ztzwtpjfps A1c iunxpmuiwtkQaZ1D [facility]art: 07-09-2025 End: 57-84-5862RjdogqstwAkron Children's Hospitaltart: 05-22-2025 End: 64-96-4047Thutxkvlf to same day surgery gjorvy1805/22/2025 2:00 PM EDT [facility] General Surgery [facility] [address] [place] [address] Jerome Del [place]o, [place] [address] 4wk post opGeneral Surgery Comment on above:4wk post opStart: 05-10-2025 End: 18-40-8609Jeqkozrc Hmikdxp7505/10/2025 9:30 AM EDT Clinical Support [facility] [address] [place] [address] Art Freeman, DO [address] [facility], [facility] [address] [place], [place] [id number] [facility] MedicineStart: 05-09-2025 End: 54-20-8136Nezeygj encounter exfflqkvj17/18/2025 10:40 AM EDT Office Visit [facility] [address] [facility] [place] [address] Sherri Garcia, 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-SERVICE DESK ANALYST [address] [place] [address] [facility] Wound Care ClinicStart: 96-40-5553Yaqlvczrt B screeningUrine Albumin:Creatinine RatioMarion Hospitaltart: 21-84-4103Itoas screening for proteinUrine MicroalbuminProMercy Health – The Jewish Hospitalca Health SystemStart: 04-26-2025 End: 81-01-5954Fqehahj encounter maqrigjxq11/05/2025 2:00 PM EDT Office Visit [facility] [address] [place], [place] [address] Art Freeman, DO [address] [facility], [address], [address] [place], [place] [address] [facility] MedicineStart: 04-26-2025 End: 97-50-3139JM Lumbar spine Views W right bending and W left bendingX-ray spine lumbar complete including flexion and extension 6+ views Imaging Routine Chronic midline low back pain without sciatica Expected: 04/26/2025, Expires: 04/26/2026[facility] Work Phone: Comment on above:Expected: 04/26/2025, Expires: 04/26/2026Start: 04-25-2025 End: 95-01-7667Yxyruzq encounter nwydibbxi74/04/2025 7:30 AM EDT Appointment [facility] [place] [address] Jerome Del [place]o, [place] [address] Diabetic gastroparesis (HCC)[facility] HospitalComment on above:Diabetic gastroparesis (HCC)Start: 04-24-2025 End: 89-64-0464Vkuzdol encounter ewgdoaatq50/03/2025 10:30 AM EDT Office Visit [facility] [address] [place] [address] Sherri Garcia, 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-SERVICE DESK ANALYST [address] [place] [address] [facility] Wound Care ClinicStart: 04-11-2025 End: 81-50-3611Cohdfhw encounter jlhforvnj66/21/2025 10:40 AM EDT Office Visit [facility] [address] [place] [address] Sherri Garcia, 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-SERVICE DESK ANALYST [address] [place] [address] [facility] Jerseytart: 04-10-2025 End: 67-45-0629Crdfwfq encounter procedureGastroenterologyComment on above:New gp consult/emptiesStart: 01-01-2025Medicare Advantage Annual Wellness Visit Medicare Advantage Annual Wellness VisitMarion Hospitaltart: 96-75-1822Uksbt- 19 Vaccine ( season)Covid-19 Vaccine ()[facility]: 09-25-7850Sgpwxvjoq vaccinationInfluenza Vaccine (#1)[facility]art: 74-81-9977Sahumiusv vaccinationInfluenza Vaccine (#1)[facility] HealthcareComment on above:Postponed from 07/23/2023 (Patient Refused)Start: 74-98-2431AinoojdxtAkron Children's Hospitaltart: 77-97-2056Xtcdssbtq for malignant neoplasm of colonColorectal Cancer ScreeningNOUT HealthcareComment on above:Postponed from 1966 (Other Medical Reasons)Start: 01-06-2024 End: 76-64-9352Qryfcss encounter /15/2024 4:30 PM EST Office Visit [facility] [address] [place] [address] Cheng Staples NP [address] [place] [address] ArrivedNOUT CWM FMComment on above:ArrivedStart: 10-20-2023 Hemoglobin A1c measurementDiabetes: Hemoglobin M6IIIRC HealthcareStart: 73-65-8600Ojjpsglx foot examinationDiabetic Foot ExamDoctors Hospital Start: 97-08-0550Lmjqnzkd specific antigen measurementProstate Cancer Screening DiscussionMarion Hospitaltart: 69-79-1889ZeX3j (Bld) [Mass fraction]A1C [facility]HealthStart: 03-06-2021 End: 83-19-5399Wasmym Visit03/06/2021 Office Visit Wound Care Marcella Bell MD [address] [place] [address] [phone] [facility] Wound CareStart: 02-14-2021 End: 73-13-0989Ndsjyv Visit02/14/2021 Office Visit Wound Care Leanne Cherry DPM [address] [place] [address] [phone] [facility] Wound CareStart: 02-06-2021 End: 54-97-6220Slzefl Visit02/06/2021 Office Visit Wound Care Marcella Bell MD [address] [place] [address] [phone] [facility] Wound CareStart: 01-24-2021 End: 05-00-4621Hrdrgw Visit01/24/2021 Office Visit Wound Care Leanne Cherry DPM [address] [place] [address] [phone] [facility] Wound CareStart: 01-09-2021 End: 65-77-4348Gqbynd VisitAvita Health [facility] Wound CareStart: 12-27-2020 End: 87-03-4378Tibvmd Visit12/27/2020 Office Visit Wound Care Leanne Cherry DPM [address] [place] [address] [phone] [facility] Wound CareStart: 12-19-2020 End: 65-86-8976Oenfhy Visit12/19/2020 Office Visit Wound Care Marcella Bell MD [address] [place] [address] [phone] [facility] Wound CareStart: 92-83-7961Mkweprgvra examination and evaluationOphthalmology ExamOhioHealthStart: 94-40-4272Fhmitsrve vaccination givenSequential Influenza Vaccine (#1)[facility] CarolinaHealthStart: 72-96-2988Xfqtwxtdwindwv of herpes zoster vaccineZoster Vaccines (1 of 2)[facility]HealthStart: 2016 Administration of varicella zoster vaccineZoster (Shingles) Vaccine (1 of 2) [facility]alt[facility]art: 11-95-7622Icuzybwcjqbq Vaccine: 50+ (1 of 1 - PCV) Pneumococcal Vaccine: 50+ (1 of 1 - PCV)[facility]tart: 2016 Screening for malignant neoplasm of colonInioHealthStart: 94-28-6802Xeanpavn Vaccine (1 of 2)Shingrix Vaccine (1 of 2)[facility]art: 2011 Prostate specific antigen measurementProstate Cancer Screening Discussion [facility]: 67-24-6575Qnukhzfag for malignant neoplasm of colon [facility]: 52-32-9097Lvnsvfybp B Vaccine (1 of 3 - 19+ 3-dose series)Hepatitis B Vaccine (1 of 3 - 19+ 3-dose series)[facility]: 41-22-8663Dvpwjgvabvme Vaccine: 50+ (1 of 2 - PCV)Pneumococcal Vaccine: 50+ (1 of 2 - PCV)[facility]art: 09-03-3536Ugcxi screening for proteinDiabetes: Urine Protein ScreeningResearch Medical Center-Brookside CampusStart: 18-68-0126Jqmtl BMI Follow Up Plan Adult BMI Follow Up PlanAdventHealthtart: 88-76-7685Mqnahd PCP Team Chronic Disease VisitAnnual PCP Team Chronic Disease VisitMarion Hospitaltart: 96-45-3160Jjejehs ScreeningAnxiety ScreeningMarion Hospitaltart: 1984 Depression ScreeningDepression ScreeningMarion Hospitaltart: 1984 Hepatitis B surface antibody levelLDL CholesterolMarion Hospitaltart: 82-22-6086Hznmlopoi C antibody, confirmatory testHepatitis C ScreeningOhioHealth Start: 91-73-1209Qobkureei C screeningHepatitis C ScreeningCleSelect Medical [facility] Start: 28-84-7129CEG screeningHIV ScreeningMarion Hospitaltart: 1982 COVID-19 Vaccine (1 of 2)COVID-19 Vaccine (1 of 2)[facility]HealthStart: 65-64-9308VFA screeningHIV ScreeningOhioHealthStart: 21-18-4767Bvebvhajxg depression screening assessmentProMount Carmel Health Systemtart: 24-34-6466Fzaksic DL <= 20 mg/L (U) [Mass/Vol]Urine MicroalbuminOhioHealthStart: 46-03-3832Jmqwlnpa foot examination [facility]art: 95-97-5377Igbrewvp screeningDilated Retinal ExamMarion Hospitaltart: 22-20-9110Kjdyypqahh examination and evaluationOphthalmology Exam [facility] HospitalStart: 08-88-1699Rhjjgfz and physical examination, annual for health maintenanceInova Alexandria Hospital VisitOhioHealthStart: 11-63-5486Joegltum screeningDiabetic Ophthalmology ExamProMount Carmel Health Systemtart: 1966Medicare Annual Wellness (AWV)Medicare Annual Wellness (AWV)[facility] HealthcareStart: 1966 Prostate specific antigen measurementPSA LevelOhioHealthStart: 1966 Screening for malignant neoplasm of colonNOMS HealthcareStart: 81-69-6785Mszazfa vaccinationTetanus: Every 10yrsOhioHealth End: 23-63-110338 lead ECGECG 12 Lead ECG Routine Once for 1 Occurrences starting 11/05/2020 until 11/05/2020OhioHealthComment on above:Once for 1 Occurrences starting 11/05/2020 until 11/05/2020Aerobic microbial cultureWound Aerobic Culture Microbiology Routine Subacute osteomyelitis of left foot (HCC) Charcot's joint of ankle, unspecified laterality 12/27/2020 12:24 PM EST North CarolinaHealthBacteria identified Aer cx Nom (Bone)[facility] HospitalBacteria identified Anaer cx Nom (Unsp spec)[facility] End: 05-09-8625YPC W Auto Differential panel - BloodCBC auto differential Lab Routine Type 2 diabetes mellitus with foot ulcer, with long-term current use of insulin ([facility]) 1 Occurrences starting 04/26/2025 until 04/26/2026[facility] SystemComment on above:1 Occurrences starting 04/26/2025 until 04/26/2026 End: 37-00-5261Ckuqwoytlcpli metabolic 2000 panel - Serum or PlasmaComprehensive metabolic panel Lab Routine Type 2 diabetes mellitus with foot ulcer, with long-term current use of insulin ([facility]) Fatty liver disease, nonalcoholic 1 Occurrences starting 04/26/2025until 04/26/2026ProNationwide Children'S Hospital SystemComment on above:1 Occurrences starting 04/26/2025 until 04/26/2026T angiography of head [facility] HospitalCT angiography of neck vesselsGuernsey Memorial Hospital End: 65-08-1070Wydqyuqlorgcrm vitamin b-12Vitamin B12 Lab Routine Fatigue, unspecified type 1 Occurrences starting 05/10/2025 until 05/10/2026ProNationwide Children'S Hospital SystemComment on above:1 Occurrences starting 05/10/2025 until 05/10/2026 End: 64-68-5785DSPNZNZDNabytphq Procedures Routine Subacute osteomyelitis of left foot (HCC) 1 Occurrences starting 12/19/2020 until 2[facility] Comment on above:1 Occurrences starting 12/19/2020 until 12/19/2021 End: 71-07-4454AJMVHMFWZzagkocm Procedures Routine Subacute osteomyelitis of left foot (HCC) 1 Occurrences starting 01/09/2021 until 2[facility] Comment on above:1 Occurrences starting 01/09/2021 until 01/09/2022 End: 31-63-5639KCFUXCEOByecihns Procedures Routine Foot abscess, left 1 Occurrences starting 02/06/2021 until 2OhioHealthComment on above:1 Occurrences starting 02/06/2021 until 02/06/2022 End: 18-98-9711Hceukiqxme A1c/Hemoglobin.total in BloodHemoglobin A1c Lab Routine Type 2 diabetes mellitus with foot ulcer, with long-term current use of insulin ([facility]) 1 Occurrences starting 04/26/2025 until 04/26/2026ProNationwide Children'S Hospital SystemComment on above:1 Occurrences starting 04/26/2025 until 04/26/2026 End: 21-85-0265Omeyb panelLipid panel Lab Routine Type 2 diabetes mellitus with foot ulcer, with long-term current use of insulin ([facility]) Hyperlipidemia, unspecified hyperlipidemia type 1 Occurrences starting 07/05/2025 until 07/05/2026[facility] Work Phone: Comment on above:1 Occurrences starting 07/05/2025 until 07/05/2026 End: 85-83-6895Imufutawe [Mass/volume] in Serum or PlasmaMagnesium Lab Routine Fatigue, unspecified type 1 Occurrences starting 05/10/2025 until 05/10/2026 [facility] SystemComment on above:1 Occurrences starting 05/10/2025 until 05/10/2026Patient EducationMercy Health [facility] Work Phone: Patient referralMercy Health Springfield Regional Medical Center Ctr Work Phone: End: 67-33-5449Qocqdspps specific antigen screenProstatic specific antigen screen Lab Routine Encounter for screening for malignant neoplasm of prostate 1 Occurrences starting 05/10/2025 until 05/10/2026Pro[facility] Work Phone: Comment on above:1 Occurrences starting 05/10/2025 until 05/10/2026Radionuclide gastric emptying studyGuernsey Memorial Hospital End: 56-31-5823Mcntgehvbkmt, Total and Free, STestosterone, Total and Free, S Lab Routine Fatigue, unspecified type 1 Occurrences starting 05/10/2025 until 05/10/2026[facility] Medical [email or web address] INC. SystemComment on above:1 Occurrences starting 05/10/2025 until 05/10/2026 End: 11-56-5518Riltvfp D 25 hydroxyVitamin D 25 hydroxy Lab Routine Fatigue, unspecified type 1 Occurrences starting 05/10/2025 until 05/10/2026ProMercy Health – The Jewish [email or web address] INC. SystemComment on above:1 Occurrences starting 05/10/2025 until 05/10/2026 Wound Anaerobic CultureWound Anaerobic Culture Microbiology Routine Subacute osteomyelitis of left foot (HCC) Charcot's joint of ankle, unspecified laterality 12/27/2020 12:24 PM ESTOhioHealth End: 29-23-8324X-ray of left footXR Foot Left 3+ Views (Standard) Imaging Routine Subacute osteomyelitis of left foot (HCC) 1 Occurrences starting 01/24/2021 until 01/24/2022hioHealthComment on above:1 Occurrences starting 01/24/2021 until 01/24/2022X-ray of left footXR Foot Left 3+ Views (Standard) Imaging Routine Subacute osteomyelitis of left foot (HCC) 01/24/2021 2:27 PM [facility] Immunizations Immunization DateImmunizationNotesCare RwzpmnwcKtvzgdev64-21-8725jocnank toxoid, reduced diphtheria toxoid, and acellular pertussis vaccine, dieterLisa Staples WEIGHT CLERK Work Phone: [facility] Healthcare Payers DatePayer CategoryPayerPolicy [id number] (Managed Care)[employer] MEDICARE [id number] 2024Medicare HMO [employer] MEDICARE Member Subscriber Plan / Payer (Effective 2023-Present) Name: More Kingsley Jr. Relation to Subscriber: Self Name: More Kingsley Jr. Payer ID: 1 (NAIC) Type: Not on file Address: [address] [place] [id number] 06-24-0159Vccjssu Health [id number] 2.16.840.6.314480.7526-01-2023 PhamweoPTN8AV 2.16.840.2.371200.85690989-93-5512RrifyguMMARTGC HEALTH DEVOTED HEALTH [id number] 2023-Present [address] [place] [address] [id number] 2021Medicare2019Medicare [id number] [id number] 2.16.840.1.832178.3.57[id number] 2.16.840.1.802356.3.57[id number] 2.16.840.1.399608.3.57[id number] 2.16.840.1.296126.3.57[id number] 2.16.840.1.536741.3.57[id number] 2.16.840.1.249460.3.57[id number] 2.16.840.1.394583.3.57[id number] 2.16.840.1.687825.3.57[id number] 2.16.840.1.621025.3.57[id number] 2.16.840.1.230193.3.57[id number] 2.16.840.1.870166.3.57[id number] 2.16.840.1.991715.3.57[id number] 2.16.840.1.195728.3.57[id number] 2.16.840.1.614587.3.57[id number] 2..840.1.744365.3.57[id number] 2..840.1.220118.3.57[id number] 2.840.1.666173.3.579.2.83[id number] 2..840.1.656948.3.579.2.365261-44-8958Fkkiwip379622 2..840.1.766125.3.579.2.[id number] 2.840.1.240351.3.579.[id number] 2..840.1.935216.3.579.2.614279-07-3701Nvxqfqz656510255 2..840.1.160731.3.579.[id number] 2.16.840.1.268560.3.579.[id number] 2.16840.1.842481.3.57[id number] 2.16.840.1.794443.3.579.2.[id number] 2.0.1.275514.3.57[id number] 2.840.1.251772.3.579.2.38[id number] 2.0.1.732944.3.579.[id number] 2.0.1.603178.3.579.[id number] 2.840.1.269630.3.579.[id number] 2..1.359808.3.579.2.8[id number] 2.0.1.941273.3.57[id number] 2..1.593896.3.579.2.79[id number] 2.0.1.153270.3.579.2.196201-59-3201Truikak693960429 2..1.750078.3.579.2.1286 [id number] 2.0.1.551674.19 [id number] 2.840.1.9386[id number] 2.840.1.864859.3.579.2.614Ezzrnps97891411 2.840.1.507017.3.579.2.531 Social History DateTypeDetailFacilityStart: 12-22-2019 End: 01-64-4822Ebaqdks smoking status NHISNever smokerNOMS HealthcareStart: 12-22-2019 End: 11-26-8473Npjhyru use and exposureNever usedOhioHealthStart: 11-19-2020 End: 25-89-8125Yrxuggb intakeCurrent drinker of alcohol (finding)[facility] Start: 34-13-4316Qjxgfcu CommentrarelyOhioHealthStart: 85-41-7250Tuj Assigned At BirthNot on fileOhioHealthExposure to SARS-CoV-2 (event)Not sureOhioHealth Start: 02-07-2021 End: 92-15-3660Ape Assigned At BirthIndependence Celsion Other Start: 01-06-2024 End: 50-77-1396Ijesrlx intakeEx-drinker (finding)NOMS HealthcareStart: 02-07-2021 End: 66-81-1574Cluleqn of Social functionNOMS HealthcareStart: 66-44-0440Hnazaho Commentpop-4 cups dailyNOMS HealthcareStart: 76-17-9888Jju Assigned At [facility] Hospitaltart: 54-38-3066Ylqvmjq smoking status NHISEx-smoker (finding)[facility]Tob[facility] [place] [facility] [place] status NHISTobacco smoking consumption unknownFort Hamilton HospitalNational Score (1-100), lower number is lower kcss29Kpakrsgsb ClinicDo you belong to any clubs or organizations such as scientologist groups, unions, fraternal or athletic groups, or school groups?NoProMedica Health SystemAre you now , , , , never or living with a partner?DivorcedProMedica Health SystemHow often to you have a drink containing alcohol?Monthly or lessProMedica Health SystemHow often do you have 6 or more drinks on 1 occasion?NeverProMedica Health SystemHow hard is it for you to pay for the very basics like food, housing, medical care, and heatingNot very hardProMedica Health SystemDo you feel stress - tense, restless, nervous, or anxious, or unable to sleep at night because yourmind is troubled all the time - these days [OSQ]To some extent [facility] GeneralBar & Club Stats SystemStart: 12-38-2247Gxxdncy Commentquit 2005ProMercy Health – The Jewish [email or web address] INC. SystemStart: 37-35-9443YotAtcf (finding)[facility] GeneralBar & Club Stats SystemNEGATED: Highlighted rowStart: NINFHistory of tobacco usePassive smokerFort Hamilton Hospital Medical Equipment Procedure CodeEquipment CodeEquipment Original TextEquipment IdentifierDates [id number]: 08-03-2021 End: 27-93-9233Lbgq Bn Bio 40gm Rpl [id number] - [id number] Start: 72-09-0860Mwal Iol Ultrasert 18.5d - [id number] - [id number] Start: Pen Needle by miscellaneous route in the morning and 1 Pen Needle at noon and 1 Pen Needle in theevening and 1 Pen Needle before bedtime. [id number]: 04-26-2025 End: strip by other route 4 (four) times a day before meals and nightly.[id number]: 04-26-2025 End: strip by other route 4 (four) times a day before meals and nightly.[id number]: 05-10-2025 End: strip by other route 4 (four) times a day before meals and nightly.[id number]: 05-16-2025 End: strip by other route 4 (four) times a day before meals and nightly.[id number]: 07-05-2025 End: strip by other route 3 (three) times a day.[id number]: 07-06-2025 Goals DatePatient GoalDesired Activity/StatePersonal health goalComment on above: Evaluation of progress towards goal: il fdc facility Functional Status MrdmQmxxdbpkduFxbrpjIszbvqch64-87-2489Rezpj score [AUDIT-C]0 09/21/2025 8:28 AM EDDanielle Obregon CNAProMedica Columbia [facility] System Clinical Notes 08-25-2022 to 09-21-2025 Note Date & VuyhPjbnWjhscfln09-38-8943 History of Present illness Narrative* Art Freeman, DO - 09/21/2025 8:30 AM EDT Images from the original note were not included. [facility] [address] [place] [address] [place] [address] Patient: More Kingsley Jr. Date of : 1965 Encounter Date: 09/21/2025 Subjective: Chief Complaint Chief Complaint Patient presents with Follow-up Diabetes/A1C/ Right foot wound History of Present Illness More Kingsley Jr. [...] BP Postition: Sitting) Pulse 92 Temp 36.5 C (97.7 F) (Oral) Wt 116.9 kg (257 lb 12.8 oz) SpO2 96% BMI 38.62 kg/m Physical Exam Physical Exam Vitals reviewed. [...] 02/2021 left foot Chronic osteomyelitis of foot ([facility]) 02/2021 left/with draining sinus Dental disease poor repair Diabetes mellitus type 2, controlled ([facility]) 1999 Hyperlipidemia Hypertension PICC (peripherally inserted central catheter) flush 02/2021 Visual impairment glasses Past Surgical History: Procedure Laterality Date AMPUTATION SYMES LOWER EXTREMITY Left 04/18/2021 Performed by Chan Brooke DPM at [facility] SURGERY AMPUTATION TOEMID FOOT OSTEOTOMY ACHILLES TENOTOMY Left 02/07/2021 Performed by Chan Brooke DPM at [facility] ASPIRATION BONE MARROW BIOPSY BONE MARROW (BONE BIOPSY) Left 03/24/2021 Performed by Chan Brooke DPM at [facility] CLOSURE WOUND LOWER EXTREMITY (DELAYED PRIMARY CLOSURE) Left 03/24/2021 Performed by Chan Brooke DPM at [facility] DEBRIDEMENT FOOT/ANKLE Left 02/07/2021 Performed by Chan Brooke DPM at [facility] EXOSTECTOMY FOOT Right 09/01/2021 Performed by Chan Brooke DPM at [facility] PHACO KELMAN I IMPLANT INTRAOCULAR LENS Right 12/28/2019 Performed by Debra Trejo MD at [facility] REMOVAL HARDWARE FOOT/TOE, AND REMOVAL ANTIBIOTIC SPACER Left 03/24/2021 Performed by Chan Brooke DPM at [facility] TONSILLECTOMY as child Family History Problem [...] and 10 to the basement. Worked at [employer]. Now disabled Social Drivers of Health Financial Resource Strain: Low Risk (01/06/2024) Received from [facility] Overall Financial Resource Strain (CARDIA) Difficulty of [...] Unmet Transportation Needs (01/06/2024) Received from [facility] PRAPARE - Transportation Lack of Transportation (Medical): Yes Lack of Transportation (Non-Medical): Yes Physical Activity: Inactive (01/06/2024) Received from [facility] Exercise Vital Sign On average, how many days per week do you engage in moderate to strenuous exercise (like a brisk walk)?: 0 days On average, how many minutes do you engage in exercise at this level?: 0 min Stress: Stress Concern Present (01/06/2024) Received from [facility] [place] [employer] - Occupational Stress Questionnaire Feeling of Stress : Very much Social Connections: Socially Isolated (01/06/2024) Received from [facility] Social Connection and Isolation Panel In a typical week, how many times do you talk on the phone with family, friends, or neighbors?: Never How often do you get together with friends or relatives?: Never How often do you attend scientologist or faith services?: Never Do you belong to any clubs or organizations such as scientologist groups, unions, fraternal or athletic groups, or school groups?: Yes How often do you attend meetings of the clubs or organizations you belong to?: Never Are you , , , , never , or living with a partner?: Interpersonal Safety: Unknown (01/13/2024) Received from [facility] Safety & Environment Fear of Current or Ex-Partner: Not on file Emotionally Abused: Not on file Physically Abused: Not on file Sexually Abused: Not on file Physically or Sexually Abused: Not on file Housing Instability: Low Risk (01/06/2024) Received from [facility] Housing Stability Vital Sign Unable to Pay [...] HISTORY: Right foot ulcer, with unspecified severity ([facility] COMPARISON: 03/04/2025 IMPRESSION: Unchanged indication about the [...] ([facility]) - POCT Hemoglobin A1c - insulin glargine [...] mellitus ([facility]) No problem-specific Assessment & Plan notes found [...] daily Follow up: 2-3 months DM/htn - Art Freeman DO 09/21/25 2:02 PM documented in this encounterDoctors Hospital10-31-2025 Instructions* Patient Instructions* Art Freeman DO - 09/21/2025 8:30 AM EDT HbA1c [...] daily for heartburn symptoms documented in this encounterDoctors Hospital10-09-2025 Miscellaneous Notes* Telephone Encounter - Phu Ocasio MA - 08/30/2025 1:02 PM EDT The patient was a no show today. Learning Disabled Teacher OPAL requesting patient call back to schedule another appointment. documented in this encounterDoctors Hospital10-09-2025 Telephone encounter Note* Telephone Encounter - Phu Ocasio MA - 08/30/2025 1:02 PM EDT The patient was a no show today. Learning Disabled Teacher OPAL requesting patient call back to schedule another appointment. [facility]10-[facility] Miscellaneous Notes* Telephone Encounter - Sangeetha Ivory - 08/27/2025 2:12 PM EDT Patient presenting to office requesting refill of amox/k clav 875-125 MG tab to [facility]. Please advise * Telephone Encounter - Danielle Masters CNA - 08/27/2025 2:12 PM EDT Spoke with patient, he states he would like a refill for this medication. Spoke with him and he states he is still having symptoms Please advise? * Telephone Encounter - Art Freeman DO - 08/27/2025 2:12 PM EDT Prescription for Augmentin 875/125 mg 1 tablet twice daily for 14 days sent into [place], [place] documented in this encounterDoctors Hospital10-06-2025 Telephone encounter Note* Telephone Encounter - Sangeetha Ivory - 08/27/2025 2:12 PM EDT Patient presenting to office requesting refill of amox/k clav 875-125 MG tab to [facility]. Please advise [facility]10-06-2025 Telephone encounter Note* Telephone Encounter - Danielle Masters CNA - 08/27/2025 2:12 PM EDT Spoke with patient, he states he would like a refill for this medication. Spoke with him and he states he is still having symptoms Please advise? [facility]10-[facility] Telephone encounter Note* Telephone Encounter - Art Freeman DO - 08/27/2025 2:12 PM EDT Prescription for Augmentin 875/125 mg 1 tablet twice daily for 14 days sent into [place], [place] [facility]10-03-2025 Miscellaneous Notes* Telephone Encounter - Ev Marquez CMA - 08/24/2025 10:18 AM EDT Attempted to call patient and inform him on NovoLog in office for him to pick pack worker in office, no answer, left voicemail. documented in this encounterVermont Psychiatric Care HospitalXanofi10-03-2025 Telephone encounter Note* Telephone Encounter - Ev Marquez CMA - 08/24/2025 10:18 AM EDT Attempted to call patient and inform him on NovoLog in office for him to pick pack worker in office, no answer, left voicemail. [facility] GeneralQuickBlox10-01-2025 Radiology Diagnostic study [place] [address] CT Scan Report Signed Patient: More Kingsley MR#: [id number] : 1965 Acct:[id number] Age/Sex: 59 / M ADM Date: 5 Loc: CT Room: Type: [facility] Attending Dr: Cathy Leggett WEIGHT CLERK-C Copies to: Cathy Leggett APRN~ Ordering Provider: Cathy Leggett APRN Date of Service: 08/22/25 CT/CT angio head: I65.23 - Occlusion and stenosis of bilateral carotid ney... ([id number]) CT/CT angio neck: I65.23 - Occlusion and [...] with one or more of the following dosereduction techniques: Automated exposure control, adjustment of the [...] are noted in the cervical spine. No acutebony abnormalities are identified. The paraspinous soft tissues are within normal limits. CT/CT angio head IMPRESSION: Calcified plaque is noted in the carotid bifurcations without significant stenosis. No evidence of focal stenosis, aneurysmal dilatation, dissection or occlusion. Impression dictated by: Blair Kidd M.D. 08/22/2025 5:14 PM Dictation Location: [facility]-- Transcribed By: AMBER 08/22/251713 Dictated By: Blair Kidd II, MD 08/22/251703 Signed By: 08/22/251713 [facility] Work Phone: [phone] Miscellaneous Notes* Telephone Encounter - Ev Marquez CMA - 08/16/2025 11:15 AM EDT Attempted to call patient to inform of package for Lantus medication received in office and ready for him to pick pack worker documented in this encounterVermont Psychiatric Care HospitalXanofi09-25-2025 Telephone encounter Note* Telephone Encounter - Ev Marquez CMA - 08/16/2025 11:15 AM EDT Attempted to call patient to inform of package for Lantus medication received in office and ready for him to pick pack worker [facility]09-22-[facility]25 History of Present illness Narrative* Roxy Lenz, [facility] - 08/13/2025 8:00 AM EDT [facility] [address] [facility] [address] Subjective SUBJECTIVE: Referring Provider: Art Freeman DO PPG Referring Provider: Yes Consult Agreement: Yes Employee Program:No At last PharmD visit, PAP signed for Lantus and Novolog. Patient reported to PCP that he is taking Novolon N 38 units AM and 40 units PM. More Kingsley Jr. is a 59 y.o. [...] low in the AM. One additional readings of86. However, all other readings have been >190. Prior to dinner readings are exceptionally uncontrolled. PAP was approved for Lantus and Novolog. [facility]. To this request [...] with caution. Patient was instructed to call PPMM when this medication arrives. Pertinent current medications [...] Blood Glucose Device Brand: Accu-check Diabetic Supplier: [employer] in [place] Retail Date FBG AC PPG 08/13 237 [...] B12 Level: Lab Results Component Value Date [id number] 1,009 (H) 05/16/2025 Lipid Management: Lab Results [...] will rip off . Encouraged him to reconsiderfor safety. Patient declines LDL doubled from last [...] due to exceptionally high pre-dinner readings Call PPMM when Lantus and Novolog arrive at PCP office for instruction with dosing Patient stated to [facility] that he did not need to do this as his glucose is well controlled when he hasthese insulins. Explained his A1C has not been controlled in some time and to please notify PPMM sowe can safely adjust his dosing. Patient non-committal to this. Refills needed on pertinent current medications/supplies: No Patient Assistance, Service Liaison Representative Coupon, or Prior Authorization: Yes PAP singed for Farxiga today PAP with Sonofi (Lantus) approved 2024 PAP with Alejandra Nordisk (Novolog) approved 2024 Ozempic PAP started today Patient will need to pick pack worker medication from providers office MONITORING: CGM: N/A Glucometer Testing: Twice daily (fasting and alternating post-prandial and before meals) FOLLOW UP: Next PCP visit: 09/21/2025 Next Pharmacist visit: 08/30/25 Signature: Roxy Lenz PharmD, [facility] 30 minute iitt-no-czoh follow-up appointment. Roxy Lenz RPH 08/13/25 120 documented in this encounterDoctors Hospital09-19-2025 History of Present illness Narrative* Art Freeman, DO - 08/10/2025 10:00 AM EDT Images from the original note were not included. [facility] [address] [place] [address] [place] [address] Patient: More Kingsley Jr. Date of : [...] has type 2 diabetes mellitus. Disease course: LastHemoglobin From 05/02/25 was 11.5% (He states that on a couple of occasions blood sugars decreased to below 100 mg/dL. Patient states that he notices changes in vision which trigger him to check bloodsugars). Although prescriptions for insulin glargine and NovoLog flex pen prescribed patient statesthat he has been unable to afford those medications and has been taking Novolin N 30 6 units in themorning and 38 units in the evening. Review [...] 02/2021 left foot Chronic osteomyelitis of foot ([facility]) 02/2021 left/with draining sinus Dental disease poor repair Diabetes mellitus type 2, controlled ([facility]) 1999 Hyperlipidemia Hypertension PICC (peripherally inserted central catheter) flush 02/2021 Visual impairment glasses Past Surgical History: Procedure Laterality Date AMPUTATION SYMES LOWER EXTREMITY Left 04/18/2021 Performed by Chan Boroke DPM at [facility] AMPUTATION TOEMID FOOT OSTEOTOMY ACHILLES TENOTOMY Left 02/07/2021 Performed by Chan Brooke DPM at [facility] ASPIRATION BONE MARROW BIOPSY BONE MARROW (BONE BIOPSY) Left 03/24/2021 Performed by Chan Brooke DPM at [facility] CLOSURE WOUND LOWER EXTREMITY (DELAYED PRIMARY CLOSURE) Left 03/24/2021 Performed by Chan Brooke DPM at [facility] DEBRIDEMENT FOOT/ANKLE Left 02/07/2021 Performed by Chan Brooke DPM at [facility] EXOSTECTOMY FOOT Right 09/01/2021 Performed by Chan Brooke DPM at [facility] PHACO KELMAN I IMPLANT INTRAOCULAR LENS Right 12/28/2019 Performed by Debra Trejo MD at [facility] REMOVAL HARDWARE FOOT/TOE, AND REMOVAL ANTIBIOTIC SPACER Left 03/24/2021 Performed by Chan Brooke DPM at [facility] TONSILLECTOMY as child Family History Problem [...] and 10 to the basement. Worked at [employer]. Now disabled Social Drivers of Health Financial Resource Strain: Low Risk (01/06/2024) Received from [facility] Overall Financial Resource Strain (CARDIA) Difficulty of Paying Living Expenses: Not hard at all Food Insecurity: Food Insecurity Present (08/10/2025) Hunger Screening Food Insecurity - Worry: Sometimes True Food Insecurity - Inability: Sometimes True Transportation Needs: Unmet Transportation Needs (01/06/2024) Received from [facility] PRAPARE - Transportation Lack of Transportation (Medical): Yes Lack of Transportation (Non-Medical): Yes Physical Activity: Inactive (01/06/2024) Received from [facility] Exercise Vital Sign Days of Exercise per Week: 0 days Minutes of Exercise per Session: 0 min Stress: Stress Concern Present (01/06/2024) Received from [facility] [place] [employer] - Occupational Stress Questionnaire Feeling of Stress : Very much Social Connections: Socially Isolated (01/06/2024) Received from [facility] Social Connection and Isolation Panel [NHANES] Frequency of Communication with Friends and Family: Never Frequency of Social Gatherings with Friends and Family: Never Attends Restorationist Services: Never Active Member of Clubs or Organizations: Yes Attends Club or Organization Meetings: Never Marital Status: Interpersonal Safety: Unknown (01/13/2024) Received from [facility] Fear of Current or Ex-Partner: Not on file Emotionally Abused: Not on file Physically Abused: Not on file Sexually Abused: Not on file Physically or Sexually Abused: Not on file Housing Instability: Low Risk (01/06/2024) Received from [facility] Housing Stability Vital Sign Unable to Pay [...] aday. blood-glucose meter kit Use as instructed cholecalciferol, [...] HISTORY: Right foot ulcer, with unspecified severity ([facility]). COMPARISON: 03/04/2025 IMPRESSION: Unchanged indication [...] ([facility]) - lisinopriL (PRINIVIL,ZESTRIL) 10 mg tablet; Take [...] mellitus ([facility]) - atorvastatin (LIPITOR) 80 mg tablet; Take [...] ([facility]) - amoxicillin-pot clavulanate (AUGMENTIN) 875-125 mg per tablet; Take 1 tablet by mouth in the morning and 1 tablet before bedtime. Do all this for 14 days. Dispense: 28 tablet; Refill: 0 7. Type 2 diabetes mellitus with other circulatory complication, with long-term current use of insulin ([facility]) - semaglutide (OZEMPIC) 0.25 mg or 0.5 [...] DO 08/10/25 1:49 PM documented in this encounterDoctors Hospital09-19-2025 Instructions* Patient Instructions* Art Freeman DO - 08/10/2025 10:00 AM EDT Increased atorvastatin to 80 mg daily and start on niacin 500 mg 1 tablet nightly for HDL improvement. Take Niacin with aspirin 81 mg daily to help with flushing. Increase Novolin N to 38 units in the morning and 40 units in the evening documented in this encounterDoctors Hospital08-26-2025 Miscellaneous Notes* Telephone Encounter - Olamide Luna - 07/17/2025 11:58 AM EDT Alejandra Nordisk Patient assistance application faxed to Dr. Art Freeman's office at [phone] forprovider signature. To follow up call [phone]. [employer] Patient assistance application faxed to Dr. Art Freeman's office at [phone] for provider signature. To follow up call [phone]. documented in this [facility]08-26-2025 Telephone encounter Note* Telephone Encounter - Olamide Luna - 07/17/2025 11:58 AM EDT Alejandra Nordisk Patient assistance application faxed to Dr. Art Freeman's office at [phone] forprovider signature. To follow up call [phone]. [employer] Patient assistance application faxed to Dr. Art Freeman's office at [phone] for provider signature. To follow up call [phone]. [facility]08-26-2025 Miscellaneous Notes* Telephone Encounter - Danielle Masters CNA - 07/17/2025 8:26 AM EDT Attempted to balbir patient, left VM ----- Message from Art Freeman DO sent at 07/17/2025 8:29 AM EDT ----- Let Mr. Kingsley know that his lipid panel results show cholesterol and LDL levels increased compared to last year. Continue with atorvastatin 40 mg daily ----- Message ----- From: Lab, Background User Sent: 07/16/2025 3:26 PM EDT To: Art Freeman DO documented in this encounterDoctors Hospital08-26-2025 Telephone encounter Note* Telephone Encounter - Danielle Masters CNA - 07/17/2025 8:26 AM EDT Attempted to balbir patient, left VM ----- Message from Art Freeman DO sent at 07/17/2025 8:29 AM EDT ----- Let Mr. Kingsley know that his lipid panel results show cholesterol and LDL levels increased compared to last year. Continue with atorvastatin 40 mg daily ----- Message ----- From: Lab, Background User Sent: 07/16/2025 3:26 PM EDT To: Art Freeman DO [facility]08-25-2025 History of Present illness Narrative* Lele Frye, [facility] - 07/16/2025 8:00 AM EDT Images from the original note were not included. [facility] [address] [facility] [address] Subjective SUBJECTIVE: Referring Provider: Art Freeman DO [...] previous lack of test strips. Meter and supplieswere sent to the pharmacy after initial follow up with Dr Freeman on 04/2025. 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 Patients main goal for appointment today is Patient assistance for his insulins. Applications for both [employer] and Alejandra [employer] completed today for Lantus, Novolog, and if needed, Ozempic, today. Withthese applications, medications will be shipped to providers [...] and will report any side effects to [facility] immediately. Will also need to follow up [...] reports he doesn't have much of a appetite,but knows he needs to eat something. 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 Lele Frye RPH 07/16/25 133 documented in this encounterDoctors Hospital08-15-2025 Evaluation + Plan note* Assessment & Plan Note - Art Freeman DO - 07/06/2025 2:46 PM EDT Associated Problem(s): Peripheral artery disease Patient with moderate to severe peripheral artery disease based on studies from hospitalization earlier in June. Patient scheduled to have vascular procedure on 07/09. Improvement in vascular function will help with diabetic foot ulcer heal [facility] Miscellaneous Notes* Assessment & Plan Note - rAt Freeman DO - 07/06/2025 2:46 PM EDTAssociated Problem(s): Peripheral artery disease Patient with moderate to severe peripheral artery disease based on studies from hospitalization earlier in June. Patient scheduled to have vascular procedure on 07/09. Improvement in vascular function will help with diabetic foot ulcer heal * Assessment & Plan Note - Art Freeman DO - 07/06/2025 2:42 PM EDT Associated Problem(s): Diabetes mellitus ([facility]) Patient diabetes is uncontrolled. Due to financial restrictions, he is unable to afford insulin which he uses to control blood sugar. Patient's last hemoglobin A1c from April 2025 was 11.5%. Discussed with patient the importance of blood sugar control. Since patient having difficulty affording the cost of medications we will refer patient to the [facility] medical management team fordiabetes to aid with patient assistance and management of blood sugars for tighter control.. documented in this encounterDoctors Hospital08-15-2025 Evaluation + Plan note* Assessment & Plan Note - Art Freeman DO - 07/06/2025 2:42 PM EDT Associated Problem(s): Diabetes mellitus ([facility]) Patient diabetes is uncontrolled. Due to financial restrictions, he is unable to afford insulin which he uses to control blood sugar. Patient's last hemoglobin A1c from April 2025 was 11.5%. Discussed with patient the importance of blood sugar control. Since patient having difficulty affording the cost of medications we will refer patient to the [facility] medical management team fordiabetes to aid with patient assistance and management of blood sugars for tighter control.. [facility] Miscellaneous Notes* Telephone Encounter - Jennie Celaya - 07/05/2025 11:10 AM EDT [facility]ICATION [place] [phone] New referral received by [facility] for diabetes. Patient was contacted to schedule appointment at [facility] [place] ([facility]). This was my first attempt to reach the patient and a message was left on their voicemail requesting a call back. Patient will be asked to bring PPMM Additional Info: Medication List. Referring provider: Art Freeman DO Patient with poorly controlled diabetes in part due to issues with affording the cost of insulin. Use is sporadic. ALos had chronic nonhealing diabetic wound on foot. Office does not have samples to provide * Telephone Encounter - Phu Ocasio MA - 07/05/2025 11:10 AM EDT Patient called and scheduled an appointment 07/16/25 at [facility]. documented in this encounterDoctors Hospital08-14-2025 Telephone encounter Note* Telephone Encounter - Jennie Celaya - 07/05/2025 11:10 AM EDT [facility] - PHARMACY MEDICATION MANAGEMENT [address] [phone] New referral received by [facility] for diabetes. Patient was contacted to schedule appointment at [facility] [place] ([facility]). This was my first attempt to reach the patient and a message was left on their voicemail requesting a call back. [facility] Additional Info: Medication List. Referring provider: Art Freeman DO Patient with poorly controlled diabetes in part due to issues with affording the cost of insulin. Use is sporadic. ALos had chronic nonhealing diabetic wound on foot. Office does not have samples to provide [facility] Telephone encounter Note* Telephone Encounter - Phu Ocasio MA - 07/05/2025 11:10 AM EDT Patient called and scheduled an appointment 07/16/25 at [facility]. [facility]08-14-2025 History of Present illness Narrative* Art Freeman, - 07/05/2025 9:30 AM EDT Images from the original note were not included. [facility] [address] [place] [address] [place] [address] Patient: More Kingsley Jr. Date of : [...] reviewed and reconciled with the most recent facilitydischarge document. Patient admitted from June 20, 2025 until June 22, 2025 at [facility] for diabetic infection of the right foot, cellulitis of the foot, ulcer of the right foot due to diabetes mellitus, ulcerof right foot with fat layer exposed, and peripheral artery disease. Patient currently on antibiotic Augmentin 875/125 mg 1 tablet twice daily for 14 days from discharge. Diabetes He presents for his follow-up diabetic visit. He has type 2 diabetes mellitus. Disease course: Lasthemoglobin A1c 11.5% in April 2025. Patient states that he has been unable to afford the cost of insulin in so has not been on any medications to manage blood sugars. Associated symptoms include foot ulcerations (follows with Podiatry and has been treating the wound with Santyl solution.). Pertinentnegatives for diabetes include no chest pain. Diabetic [...] 02/2021 left foot Chronic osteomyelitis of foot ([facility]) 02/2021 left/with draining sinus Dental disease poor repair Diabetes mellitus type 2, controlled ([facility]) 1999 Hyperlipidemia Hypertension PICC (peripherally inserted central catheter) flush 02/2021 Visual impairment glasses Past Surgical History: Procedure Laterality Date AMPUTATION SYMES LOWER EXTREMITY Left 04/18/2021 Performed by Chan Brooke DPM at [facility] AMPUTATION TOEMID FOOT OSTEOTOMY ACHILLES TENOTOMY Left 02/07/2021 Performed by Chan Brooke DPM at [facility] ASPIRATION BONE MARROW BIOPSY BONE MARROW (BONE BIOPSY) Left 03/24/2021 Performed by Chan Brooke DPM at [facility] CLOSURE WOUND LOWER EXTREMITY (DELAYED PRIMARY CLOSURE) Left 03/24/2021 Performed by Chan Brooke DPM at [facility] DEBRIDEMENT FOOT/ANKLE Left 02/07/2021 Performed by Chan Brooke DPM at [facility] EXOSTECTOMY FOOT Right 09/01/2021 Performed by Chan Brooke DPM at [facility] PHACO KELMAN I IMPLANT INTRAOCULAR LENS Right 12/28/2019 Performed by Debra Trejo MD at [facility] REMOVAL HARDWARE FOOT/TOE, AND REMOVAL ANTIBIOTIC SPACER Left 03/24/2021 Performed by Chan Brooke DPM at [facility] SURGERY TONSILLECTOMY as child Family History [...] and 10 to the basement. Worked at [employer]. Now disabled Social Drivers of Health Financial Resource Strain: Low Risk (01/06/2024) Received from [facility] Overall Financial Resource Strain (CARDIA) Difficulty of Paying Living Expenses: Not hard at all Food Insecurity: No Food Insecurity (07/05/2025) Hunger Screening Food Insecurity - Worry: Never True Food Insecurity - Inability: Never True Transportation Needs: Unmet Transportation Needs (01/06/2024) Received from [facility] PRAPARE - Transportation Lack of Transportation (Medical): Yes Lack of Transportation (Non-Medical): Yes Physical Activity: Inactive (01/06/2024) Received from [facility] Exercise Vital Sign Days of Exercise per Week: 0 days Minutes of Exercise per Session: 0 min Stress: Stress Concern Present (01/06/2024) Received from [facility] [place] [employer] - Occupational Stress Questionnaire Feeling of Stress : Very much Social Connections: Socially Isolated (01/06/2024) Received from [facility] Social Connection and Isolation Panel [NHANES] Frequency of Communication with Friends and Family: Never Frequency of Social Gatherings with Friends and Family: Never Attends Restorationist Services: Never Active Member of Clubs or Organizations: Yes Attends Club or Organization Meetings: Never Marital Status: Interpersonal Safety: Unknown (01/13/2024) Received from [facility] Fear of Current or Ex-Partner: Not on file Emotionally Abused: Not on file Physically Abused: Not on file Sexually Abused: Not on file Physically or Sexually Abused: Not on file Housing Instability: Low Risk (01/06/2024) Received from [facility] Housing Stability Vital Sign Unable to Pay [...] HISTORY: Right foot ulcer, with unspecified severity ([facility]). COMPARISON: 03/04/2025 IMPRESSION: Unchanged indication about the [...] ([facility]) - Lipid panel; Future - [facility] - [place], [place]; Future 2. Ulcer of right foot with fat layer exposed ([facility]) - collagenase (SantyL) ointment; Apply 1 Application [...] 2 5. Peripheral artery disease Diabetes mellitus ([facility]) Patient diabetes is uncontrolled. Due to financial restrictions, he is unable to afford insulin which he uses to control blood sugar. Patient's last hemoglobin A1c from April 2025 was 11.5%. Discussed with patient the importance of blood sugar control. Since patient having difficulty affording the cost of medications we will refer patient to the [facility] medical management team fordiabetes to aid with [...] DO 07/06/25 2:46 PM documented in this encounterDoctors Hospital08-07-2025 Evaluation note* Diagnosis Onset Date Resolution Status Admit Date Diabetic ulcer of right foot acuteAugust 2024 9:55amOcclusion and stenosis of bilateral carotid arteries acuteAugust 2024 9:55amPAD (peripheral artery disease)acuteAugust 2024 9:55am [facility] Work Phone: [phone] 776-821707-01-2025 Miscellaneous Notes* Telephone Encounter - Danielle Masters [...] manage his blood sugars. documented in this encounterDoctors Hospital07-01-2025 Telephone encounter Note* Telephone Encounter - [...] 1:51 PM EDT To: Art Freeman DO [facility]07-[facility] Telephone encounter Note* Telephone Encounter - Danielle Masters CNA - 05/22/2025 2:40 PM EDT Spoke with patient, he verbalized understanding. Patient declined the referral to endocrinology, just states he needs his meds [facility]07-[facility]25 Telephone encounter Note* Telephone Encounter - Art Freeman DO - 05/22/2025 2:40 PM EDT Attempted to call patient did not answer I did not leave a message. I wanted to make sure from his last visit that he was able to get his insulins to manage his blood sugars. [facility]06-22-2025 Miscellaneous Notes* Telephone Encounter - Art Freeman DO - 05/13/2025 3:07 PM EDT CHANGE TO ACCUCHECK documented in this encounterDoctors Hospital06-22-2025 Telephone encounter Note* Telephone Encounter - Art Freeman DO - 05/13/2025 3:07 PM EDT CHANGE TO ACCUCHECK [facility] Evaluation + Plan note* Assessment & Plan Note - Art Freeman DO - 05/10/2025 12:59 PM EDTAssociated Problem(s): Benign essential HTN Hypertension is stable. Continue with hydrochlorothiazide 12.5 mg daily and lisinopril 10 mg daily. [facility]-2025 Miscellaneous Notes* Assessment & Plan Note - Art Freeman DO - 05/10/2025 12:59 PM EDTAssociated Problem(s): Benign essential HTN Hypertension is stable. Continue with hydrochlorothiazide 12.5 mg daily and lisinopril 10 mg daily. * Assessment & Plan Note - Art Freeman DO - 05/10/2025 12:58 PM EDT Associated Problem(s): Diabetes mellitus ([facility]) Hemoglobin A1c from May 02, [...] mg 1 tablet daily. documented in this encounterDoctors Hospital06-19-2025 Evaluation + Plan note* Assessment & Plan Note - Art Freeman DO - 05/10/2025 12:58 PM EDT Associated Problem(s): Diabetes mellitus ([facility]) Hemoglobin A1c from May 02, 2025 was 11.5%. Patient was unable to afford insulin prescriptions at last visit. Prescribed Lantus Solostar insulin pens 30 units twice daily and NovoLog flex pen sliding scale 3 times daily with meals. [facility] Evaluation + Plan note* Assessment & Plan Note - Art Freeman DO - 05/10/2025 12:57 PM EDTAssociated Problem(s): Chronic midline low back pain without sciatica Reviewed 6 view lumbar x-rays from May 02, 2025. Prescribed celecoxib 100 mg 1 tablet daily. [facility] History of Present illness Narrative* Art Freeman DO - 05/10/2025 9:30 AM EDT Images from the original note were not included. [facility] [address] [facility] [place] [address] Patient: More Kingsley Jr. Date of : [...] 02/2021 left foot Chronic osteomyelitis of foot ([facility]) 02/2021 left/with draining sinus Dental disease poor repair Diabetes mellitus type 2, controlled ([facility]) 1999 Hyperlipidemia Hypertension PICC (peripherally inserted central catheter) flush 02/2021 Visual impairment glasses Past Surgical History: Procedure Laterality Date AMPUTATION SYMES LOWER EXTREMITY Left 04/18/2021 Performed by Chan Brooke DPM at [facility] AMPUTATION TOEMID FOOT OSTEOTOMY ACHILLES TENOTOMY Left 02/07/2021 Performed by Chan Brooke DPM at [facility] ASPIRATION BONE MARROW BIOPSY BONE MARROW (BONE BIOPSY) Left 03/24/2021 Performed by Chan Brooke DPM at [facility] CLOSURE WOUND LOWER EXTREMITY (DELAYED PRIMARY CLOSURE) Left 03/24/2021 Performed by Chan Brooke DPM at [facility] DEBRIDEMENT FOOT/ANKLE Left 02/07/2021 Performed by Chan Brooke DPM at [facility] EXOSTECTOMY FOOT Right 09/01/2021 Performed by Chan Brooke DPM at [facility] PHACO KELMAN I IMPLANT INTRAOCULAR LENS Right 12/28/2019 Performed by Debra Trejo MD at [facility] REMOVAL HARDWARE FOOT/TOE, AND REMOVAL ANTIBIOTIC SPACER Left 03/24/2021 Performed by Chan Brooke DPM at [facility] TONSILLECTOMY as child Family History [...] and 10 to the basement. Worked at [employer]. Now disabled Social Drivers of Health Financial Resource Strain: Low Risk (01/06/2024) Received from [facility] Overall Financial Resource Strain (CARDIA) Difficulty of Paying Living Expenses: Not hard at all Food Insecurity: No Food Insecurity (05/10/2025) Hunger Screening Food Insecurity - Worry: Never True Food Insecurity - Inability: Never True Transportation Needs: Unmet Transportation Needs (01/06/2024) Received from [facility] PRAPARE - Transportation Lack of Transportation (Medical): Yes Lack of Transportation (Non-Medical): Yes Physical Activity: Inactive (01/06/2024) Received from [facility] Exercise Vital Sign Days of Exercise per Week: 0 days Minutes of Exercise per Session: 0 min Stress: Stress Concern Present (01/06/2024) Received from [facility] [place] [employer] - Occupational Stress Questionnaire Feeling of Stress : Very much Social Connections: Socially Isolated (01/06/2024) Received from [facility] Social Connection and Isolation Panel [NHANES] Frequency of Communication with Friends and Family: Never Frequency of Social Gatherings with Friends and Family: Never Attends Restorationist Services: Never Active Member of Clubs or Organizations: Yes Attends Club or Organization Meetings: Never Marital Status: Interpersonal Safety: Unknown (01/13/2024) Received from [facility] Fear of Current or Ex-Partner: Not on file Emotionally Abused: Not on file Physically Abused: Not on file Sexually Abused: Not on file Physically or Sexually Abused: Not on file Housing Instability: Low Risk (01/06/2024) Received from [facility] Housing Stability Vital Sign Unable to Pay [...] ([facility]) - lisinopriL (PRINIVIL,ZESTRIL) 10 mg tablet; Take [...] 100 mg 1 tablet daily. Diabetes mellitus ([facility]) Hemoglobin A1c from May 02, 2025 was [...] DO 05/10/25 12:59 PM documented in this encounterDoctors Hospital06-19-2025 Instructions* Patient Instructions* Art Freeman DO [...] and exercises as given documented in this encounterDoctors Hospital06-06-2025 Evaluation + Plan note* Assessment & Plan Note - Art Freeman DO - 04/27/2025 9:18 PM EDT Associated Problem(s): Chronic midline low back pain without sciatica Ordered x-rays of lumbar spine 6 views including flexion and extension views. [facility] Miscellaneous Notes* Assessment & Plan Note - Art Freeman DO - 04/27/2025 9:18 PM EDTAssociated Problem(s): Chronic midline low back pain without sciatica Ordered x-rays of lumbar spine 6 views including flexion and extension views. * Assessment & Plan Note - Art Freeman DO - 04/27/2025 9:16 PM EDT Associated Problem(s): Diabetes mellitus ([facility]) Last hemoglobin A1c from April 01, 2025 [...] level of transaminase elevation documented in this encounterDoctors Hospital06-06-2025 Evaluation + Plan note* Assessment & Plan Note - Art Freeman DO - 04/27/2025 9:16 PM EDT Associated Problem(s): Diabetes mellitus ([facility]) Last hemoglobin A1c from April 01, 2025 was 11%. Continue with insulin glargine 30 units nightly, insulin lispro sliding scale coverage before meals. Monitor blood sugars before meals. [facility] Evaluation + Plan note* Assessment & Plan Note - Art Freeman DO - 04/27/2025 9:14 PM EDTAssociated Problem(s): Benign essential HTN Blood pressure today in normal range. Patient denies any symptoms. Continue with hydrochlorothiazide 12.5 mg daily, lisinopril 10 mg daily. [facility] Evaluation + Plan note* Assessment & Plan Note - Art Freeman DO - 04/27/2025 9:13 PM EDTAssociated Problem(s): Fatty liver disease, nonalcoholic Ordered lab work including comprehensive metabolic panel to evaluate for level of transaminase elevation [facility]06[facility] History of Present illness Narrative* Art Freeman DO - 04/26/2025 2:00 PM EDT Images from the original note were not included. [facility] [address] [place] [address] Patient: More Kingsley Jr. Date of : [...] 02/2021 left foot Chronic osteomyelitis of foot ([facility]) 02/2021 left/with draining sinus Dental disease poor repair Diabetes mellitus type 2, controlled ([facility]) 1999 Hyperlipidemia Hypertension PICC (peripherally inserted central catheter) flush 02/2021 Visual impairment glasses Past Surgical History: Procedure Laterality Date AMPUTATION SYMES LOWER EXTREMITY Left 04/18/2021 Performed by Chan Brooke DPM at [facility] AMPUTATION TOEMID FOOT OSTEOTOMY ACHILLES TENOTOMY Left 02/07/2021 Performed by Chan Brooke DPM at [facility] ASPIRATION BONE MARROW BIOPSY BONE MARROW (BONE BIOPSY) Left 03/24/2021 Performed by Chan Brooke DPM at [facility] CLOSURE WOUND LOWER EXTREMITY (DELAYED PRIMARY CLOSURE) Left 03/24/2021 Performed by Chan Brooke DPM at [facility] DEBRIDEMENT FOOT/ANKLE Left 02/07/2021 Performed by Chan Brooke DPM at [facility] EXOSTECTOMY FOOT Right 09/01/2021 Performed by Chan Brooke DPM at [facility] PHACO KELMAN I IMPLANT INTRAOCULAR LENS Right 12/28/2019 Performed by Debra Trejo MD at [facility] REMOVAL HARDWARE FOOT/TOE, AND REMOVAL ANTIBIOTIC SPACER Left 03/24/2021 Performed by Chan Brooke DPM at [facility] TONSILLECTOMY as child Family History [...] and 10 to the basement. Worked at [employer]. Now disabled Social Drivers of Health Financial Resource Strain: Low Risk (01/06/2024) Received from [facility] Overall Financial Resource Strain (CARDIA) Difficulty of Paying Living Expenses: Not hard at all Food Insecurity: No Food Insecurity (04/26/2025) Hunger Screening Food Insecurity - Worry: Never True Food Insecurity - Inability: Never True Transportation Needs: Unmet Transportation Needs (01/06/2024) Received from [facility] PRAPARE - Transportation Lack of Transportation (Medical): Yes Lack of Transportation (Non-Medical): Yes Physical Activity: Inactive (01/06/2024) Received from [facility] Exercise Vital Sign Days of Exercise per Week: 0 days Minutes of Exercise per Session: 0 min Stress: Stress Concern Present (01/06/2024) Received from [facility] [place] [place] [employer] - Occupational Stress Questionnaire Feeling of Stress : Very much Social Connections: Socially Isolated (01/06/2024) Received from [facility] Social Connection and Isolation Panel [NHANES] Frequency of Communication with Friends and Family: Never Frequency of Social Gatherings with Friends and Family: Never Attends Restorationist Services: Never Active Member of Clubs or Organizations: Yes Attends Club or Organization Meetings: Never Marital Status: Interpersonal Safety: Unknown (01/13/2024) Received from [facility] Fear of Current or Ex-Partner: Not on file Emotionally Abused: Not on file Physically Abused: Not on file Sexually Abused: Not on file Physically or Sexually Abused: Not on file Housing Instability: Low Risk (01/06/2024) Received from [facility] Housing Stability Vital Sign Unable to Pay [...] ([facility]) - TRUE [employer] GLUCOSE TEST STRIP strip; [...] daily, lisinopril 10 mg daily. Diabetes mellitus ([facility]) Last hemoglobin A1c from April [...] DO 04/27/25 9:18 PM documented in this encounterDoctors Hospital06-05-2025 Instructions* Patient Instructions* Art Freeman DO - 04/26/2025 2:00 PM EDT Get blood work and x-ray of lumbar spine completed before next visit. Follow instructions for medications. Check blood sugars up to 4 times per day and use short acting insulin as directed. Take Lantus 30 units daily documented in this encounterDoctors Hospital06-03-2025 History of Present illness Narrative* Sherri Garcia, 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-SERVICE DESK ANALYST - 04/24/2025 10:30 AM EDTAssociated Order(s): Debridement [...] a 59 y.o. male who present to [facility] for evaluation of 1 ulcer(s) on theright plantar midfoot. Patient established with wound clinic 03/28/2025. Current wound care includes: Vashe soak, cover with Xeroform, secure with roll gauze. Patient is wearing a right tennis shoe, Patient presents with a prosthetic of the left foot. Patient states his flask carrier is Dr. Eric Stephenson, [facility]. Patient was seen in the emergency [...] notes. Patient Active Problem List Diagnosis Sepsis ([facility]) Diabetic ulcer of right midfoot associated with type 2 diabetes mellitus, with muscle involvement without evidence of necrosis ([facility]) Chronic osteomyelitis of left foot with draining sinus ([facility]) Wound, open, foot with complication, left, initial encounter Charcot's joint of foot, left Diabetes mellitus ([facility]) Hyperlipidemia Osteomyelitis of left foot ([facility]) Ulcer of right foot with fat layer exposed ([facility]) History of transmetatarsal amputation of right foot ([facility]) 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 ([facility]) Unstable ankle, right Past Medical History: Diagnosis Date Acid reflux Anemia Arthritis Cataract right lens implant Charcot's joint 02/2021 left foot Chronic osteomyelitis of foot ([facility]) 02/2021 left/with draining sinus Dental disease poor repair Diabetes mellitus type 2, controlled ([facility]) 1999 Hyperlipidemia Hypertension PICC (peripherally inserted central catheter) flush 02/2021 Visual impairment glasses Past Surgical History: Procedure Laterality Date AMPUTATION SYMES LOWER EXTREMITY Left 04/18/2021 Performed by Chan Brooke DPM at [facility] AMPUTATION TOEMID FOOT OSTEOTOMY ACHILLES TENOTOMY Left 02/07/2021 Performed by Chan Brooke DPM at [facility] ASPIRATION BONE MARROW BIOPSY BONE MARROW (BONE BIOPSY) Left 03/24/2021 Performed by Chan Brooke DPM at [facility] CLOSURE WOUND LOWER EXTREMITY (DELAYED PRIMARY CLOSURE) Left 03/24/2021 Performed by Chan Brooke DPM at [facility] DEBRIDEMENT FOOT/ANKLE Left 02/07/2021 Performed by Chan Brooke DPM at [facility] EXOSTECTOMY FOOT Right 09/01/2021 Performed by Chan Brooke DPM at [facility] PHACO KELMAN I IMPLANT INTRAOCULAR LENS Right 12/28/2019 Performed by Debra Trejo MD at [facility] REMOVAL HARDWARE FOOT/TOE, AND REMOVAL ANTIBIOTIC SPACER Left 03/24/2021 Performed by Chan Brooke DPM at [facility] TONSILLECTOMY as child Social Drivers of Health Food Insecurity: No Food Insecurity (03/04/2025) Hunger Screening Food Insecurity - Worry: Never True Food Insecurity - Inability: Never True Housing Instability: Low Risk (01/06/2024) Received from [facility] Housing Stability Vital Sign Unable to Pay for Housing in the Last Year: No Number of Places Lived in the Last Year: 1 Unstable Housing in the Last Year: No Transportation Needs: Unmet Transportation Needs (01/06/2024) Received from [facility] PRAPARE - Transportation Lack of Transportation (Medical): Yes Lack of Transportation (Non-Medical): Yes Utility Difficulties: Not on file Interpersonal Safety: Unknown (01/13/2024) Received from [facility] [place] Safety & Environment Fear of Current or Ex-Partner: Not on file Emotionally Abused: Not on file Physically Abused: Not on file Sexually Abused: Not on file Physically or Sexually Abused: Not on file Financial Resource Strain: Low Risk (01/06/2024) Received from [facility] Overall Financial Resource Strain (CARDIA) Difficulty of Paying Living Expenses: Not hard at all Childcare: Low Risk (02/07/2021) Childcare Childcare: No Employment: Low Risk (02/07/2021) Employment Employment: No Purpose - Life: Low Risk (02/07/2021) Purpose - Life Purpose and direction in life: Agree Depression: Not at risk (03/13/2024) Received from [facility] PHQ-2 Patient Health Questionnaire-2 Score: 0 Alcohol Use: Not At Risk (01/06/2024) Received from [facility] AUDIT-C Frequency of Alcohol Consumption: Monthly or less Average Number of Drinks: Patient does not drink Frequency of Binge Drinking: Never Tobacco Use: Low Risk (04/11/2025) Patient History Smoking Tobacco Use: Never Smokeless Tobacco Use: Never Passive Exposure: Not on file Social Connections: Socially Isolated (01/06/2024) Received from [facility] Social Connection and Isolation Panel [NHANES] Frequency of Communication with Friends and Family: Never Frequency of Social Gatherings with Friends and Family: Never Attends Restorationist Services: Never Active Member of Clubs or Organizations: Yes Attends Club or Organization Meetings: Never Marital Status: Physical Activity: Inactive (01/06/2024) Received from [facility] Exercise Vital Sign Days of Exercise per Week: 0 days Minutes of Exercise per Session: 0 min Stress: Stress Concern Present (01/06/2024) Received from [facility] [place] of Occupational Health - Occupational Stress Questionnaire [...] debridement Post debridement 04/24/25 1100 Site Assessment [place];Red 04/24/25 1100 Debi-wound Assessment Callous;Dry 04/24/25 1100 [...] Risks discussed: Yes Debridement Details: Performed by: WEIGHT CLERK Type: Sharp Level: Subcutaneous Tissue, Devitalized tissue [...] short term goal is wound compliance. Our [place] [facility] goal is wound closure. The patient was [...] AM Sherri Garcia APRN, ROSALIA, CWS, NAVNEET [facility]:[phone] SCOTT Vaughn 03/28/25 1311 SCOTT Vaughn 03/28/25 1619 SCOTT Vaughn 04/11/25 1218 SCOTT Vaughn 04/24/25 1202 documented in this encounterVermont Psychiatric Care HospitalButter Systems [id number] Instructions* Patient Instructions* Sulma Humphreys RN - [...] Description small Serosanginous yellow documented in this encounterDoctors Hospital05-30-2025 Nurse Note* Robbin Conti RN - 04/20/2025 11:02 AM EDT 1102 Spoke to patient to give procedure day instructions. Patient states he was told it was denied . Attempted to get clarification, but was unable to. Phone number to scheduling office provided to patient so that he can tell them the same thing I was told. No instructions given. [facility]05-30-2025 Nurse Note* Robbin Conti RN - 04/20/2025 11:02 AM EDT 1102 Spoke to patient to give procedure day instructions. Patient states he was told it was denied . Attempted to get clarification, but was unable to. Phone number to scheduling office provided to patient so that he can tell them the same thing I was told. No instructions given. documented in this encounterFort Hamilton Hospital05-28-2025 Telephone encounter Note * Telephone Encounter - Tamara Goncalves RN - 04/18/2025 3:21 PM EDT G-POEM for date of service 04/25/2025. Appeal with all information including letter, study, JAMIN notes, GES result, EGG result, EGD result,CT result, faxed to [employer]/Appeals Dept at fax [phone] with confirmation. Appeal also mailed out to [employer]/Appeals Dept) to the address provided. Copy placed in shared clinical office filing cabinet. [facility] Work Phone: 1(499) 137-704305-28-2025 Miscellaneous Notes* Telephone Encounter - Tamara Goncalves RN - 04/18/2025 3:21 PM EDT G-POEM for date of service 04/25/2025. Appeal with all information including letter, study, JAMIN notes, GES result, EGG result, EGD result,CT result, faxed to [employer]Appe[employer] Dept at fax [phone] with confirmation. Appeal also mailed out to [employer]/Appeals Dept) to the address provided. Copy placed in shared clinical office filing cabinet. documented in this encounterFort Hamilton Hospital05-21-2025 History of Present illness Narrative* Sherri Garcia, 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-SERVICE DESK ANALYST - 04/11/2025 10:40 AM EDTAssociated Order(s): Debridement Post-Procedure Diagnose(s): Diabetic ulcer of right midfoot associated with type 2 diabetes mellitus, with muscle involvement without evidence of necrosis ([facility]) Images from the original note were not included. Wound Care Progress Note Patient: More Kingsley Jr. Date of : 1965 Chief Complaint: Right foot ulcer, follow up Subjective/HPI: More is a 59 y.o. male who present to [facility] for evaluation of 1 ulcer(s) on theright plantar midfoot. Patient established with wound clinic 03/28/2025. Current wound care includes: Vashe soak, cover with Xeroform, secure with roll gauze. Patient is wearing a right [place] off-loading shoe, Patient presents with a prosthetic of the left foot. Patient states he has been to Dr. Eric Stephenson, podiatry, in [facility]. Patient was seen in the emergency [...] notes. Patient Active Problem List Diagnosis Sepsis ([facility]) Diabetic ulcer of right midfoot associated with type 2 diabetes mellitus, with muscle involvement without evidence of necrosis ([facility]) Chronic osteomyelitis of left foot with draining sinus ([facility]) Wound, open, foot with complication, left, initial encounter Charcot's joint of foot, left Diabetes mellitus ([facility]) Hyperlipidemia Osteomyelitis of left foot ([facility]) Ulcer of right foot with fat layer exposed ([facility]) History of transmetatarsal amputation of right foot ([facility]) 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 ([facility]) Unstable ankle, right Past Medical History: Diagnosis Date Acid reflux Anemia Arthritis Cataract right lens implant Charcot's joint 02/2021 left foot Chronic osteomyelitis of foot ([facility]) 02/2021 left/with draining sinus Dental disease poor repair Diabetes mellitus type 2, controlled ([facility]) 1999 Hyperlipidemia Hypertension PICC (peripherally inserted central catheter) flush 02/2021 Visual impairment glasses Past Surgical History: Procedure Laterality Date AMPUTATION SYMES LOWER EXTREMITY Left 04/18/2021 Performed by Chan Brooke DPM at [facility] AMPUTATION TOEMID FOOT OSTEOTOMY ACHILLES TENOTOMY Left 02/07/2021 Performed by Chan Brooke DPM at [facility] ASPIRATION BONE MARROW BIOPSY BONE MARROW (BONE BIOPSY) Left 03/24/2021 Performed by Chan Brooke DPM at [facility] CLOSURE WOUND LOWER EXTREMITY (DELAYED PRIMARY CLOSURE) Left 03/24/2021 Performed by Chan Brooke DPM at [facility] DEBRIDEMENT FOOT/ANKLE Left 02/07/2021 Performed by Chan Brooke DPM at [facility] EXOSTECTOMY FOOT Right 09/01/2021 Performed by Chan Brooke DPM at [facility] PHACO KELMAN I IMPLANT INTRAOCULAR LENS Right 12/28/2019 Performed by Debra Trejo MD at [facility] REMOVAL HARDWARE FOOT/TOE, AND REMOVAL ANTIBIOTIC SPACER Left 03/24/2021 Performed by Chan Brooke DPM at [facility] TONSILLECTOMY as child Social Drivers of Health Food Insecurity: No Food Insecurity (03/04/2025) Hunger Screening Food Insecurity - Worry: Never True Food Insecurity - Inability: Never True Housing Instability: Low Risk (01/06/2024) Received from [facility] Housing Stability Vital Sign Unable to Pay for Housing in the Last Year: No Number of Places Lived in the Last Year: 1 Unstable Housing in the Last Year: No Transportation Needs: Unmet Transportation Needs (01/06/2024) Received from [facility] PRAPARE - Transportation Lack of Transportation (Medical): Yes Lack of Transportation (Non-Medical): Yes Utility Difficulties: Not on file Interpersonal Safety: Unknown (01/13/2024) Received from [facility] [place] Safety & Environment Fear of Current or Ex-Partner: Not on file Emotionally Abused: Not on file Physically Abused: Not on file Sexually Abused: Not on file Physically or Sexually Abused: Not on file Financial Resource Strain: Low Risk (01/06/2024) Received from [facility] Overall Financial Resource Strain (CARDIA) Difficulty of Paying Living Expenses: Not hard at all Childcare: Low Risk (02/07/2021) Childcare Childcare: No Employment: Low Risk (02/07/2021) Employment Employment: No Purpose - Life: Low Risk (02/07/2021) Purpose - Life Purpose and direction in life: Agree Depression: Not at risk (03/13/2024) Received from [facility] PHQ-2 Patient Health Questionnaire-2 Score: 0 Alcohol Use: Not At Risk (01/06/2024) Received from [facility] AUDIT-C Frequency of Alcohol Consumption: Monthly or less Average Number of Drinks: Patient does not drink Frequency of Binge Drinking: Never Tobacco Use: Low Risk (03/28/2025) Patient History Smoking Tobacco Use: Never Smokeless Tobacco Use: Never Passive Exposure: Not on file Social Connections: Socially Isolated (01/06/2024) Received from [facility] Social Connection and Isolation Panel [NHANES] Frequency of Communication with Friends and Family: Never Frequency of Social Gatherings with Friends and Family: Never Attends Restorationist Services: Never Active Member of Clubs or Organizations: Yes Attends Club or Organization Meetings: Never Marital Status: Physical Activity: Inactive (01/06/2024) Received from [facility] Exercise Vital Sign Days of Exercise per Week: 0 days Minutes of Exercise per Session: 0 min Stress: Stress Concern Present (01/06/2024) Received from [facility] [employer] [place] of Occupational Health - Occupational Stress Questionnaire [...] for headaches. Negative for numbness. Objective: Vitals: 05/21/25 1036 BP: 157/73 Pulse: 100 Resp: 16 [...] debridement Post debridement 04/11/25 1053 Site Assessment Moist;[place];Yellow;Red 04/11/25 1041 Debi-wound Assessment Dry;Callous;Maceration 04/11/25 1041 [...] Risks discussed: Yes Debridement Details: Performed by: WEIGHT CLERK Type: Sharp Level: Subcutaneous Tissue, Devitalized tissue [...] with muscle involvement without evidence of necrosis ([facility]) 2. History of transmetatarsal amputation of right foot ([facility]) 3. 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 Wound, open, foot with [...] roll gauze Off-load with a cut out [place] foam pad Change daily Renewed prescription written for Augmentin 875-484 mg b.i.d. for 10 days, dispensed 20. Referral to Dr. Stephenson's office for off-loading [place] boot fitting Patient instructed in diabetic foot ulcer care to right and foot. Patient verbalize ability to perform wound care. Patient verbalized understanding. We will continue to follow closely to avoid any complications or infection. Our short term goal is wound compliance. 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 The patient was [...] 04/11/25 11:26 AM Sherri Garcia APRN, ROSALIA, ALBARO, NAVNEET [facility]:[phone] SCOTT Vaughn 03/28/25 1311 SCOTT Vaughn 03/28/25 1619 SCOTT Vaughn 04/11/25 1218 documented in this encounterVermont Psychiatric Care HospitalXanofi05-21-2025 Instructions* Patient Instructions* Seema Hassan RN - [...] Description small Serosanginous yellow documented in this encounterAdams County Regional Medical CenterIperia [facility] [id number] NoteHNO ID: [id number] Author: JEROME DEL TORO, DO Service: ? Author Type: Physician Type: Progress Notes Filed: 04/10/2025 10:33 Note Text: [facility] [place] Gastroparesis/Dysmotility Consultation SERVICE DATE: 04/10/2025 SERVICE TIME: 10:04 AM PRIMARY CARE PHYSICIAN: No primary care provider on file. Imad Asaad [address] [address] My final recommendations will be communicated back [...] obtained. NAME: More Kingsley Jr. CLINIC NO: [id number] DATE OF SERVICE: April 10, 2025 This [...] of 0 to (more content not included)... [facility]05-20-2025 NoteHNO ID: [id number] Author: ANDREY ESTRELLA MA Service: ? Author Type: Social Sciences Chair Type: Progress Notes Filed: 04/10/2025 10:33 Note Text: What is the reason for your visit today? Consult /empties Who is your referring physician? Tracy Yoon Are you having poor oral intake? YES Have you had unintentional weight loss of 15 lbs/7 Kg in the last 3-6 months? NO Bowels: regular Wound: clean AND dry Temperature: No Drains: [facility]05-20-2025 NoteHNO ID: [id number] Author: COURTNEY GLOVER PSYD Service: ? Author [...] diffuse bodily pain, and chronic headaches/migraines 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 He denies any significant psychiatric history and [...] Tends to sleep on his side. [x]Headaches-since early childhood worker []Depression-denied ME (more content not included)...[facility]05-20-2025 NoteHNO ID: [id number] Author: ART FIGUEREDO, DO Service: ? Author [...] Medications - Does the patient see a supervisor painting department for chronic pain?No - Is the patient [...] - Has the patient met with a pouch maker for diet recommendations with Gastroparesis? No - [...] No evidence of an (more content not included)...[facility]05-15-2025 Telephone encounter Note* Telephone Encounter - Shena Dent RN - 04/05/2025 3:13 PM EDT SPECIALTY CARE COORDINATION CHART REVIEW Contacted patient regarding upcoming appointment in the Gastroparesis Clinic. No answer. Message and call back number provided. Patient identified for Care Coordination from: gastroparesis diagnosis Last PCP office visit: Visit date not found Next OV: 04/10/2025 CHRONIC DX: gastroparesis CARE COORDINATION OUTREACH PLAN: New patient call; awaiting call back Shena Dent RN April 05, 2025 [facility]05-15-2025 Miscellaneous Notes* Telephone Encounter - Shena Dent RN - 04/05/2025 3:13 PM EDT SPECIALTY CARE COORDINATION CHART REVIEW Contacted patient regarding upcoming appointment in the [facility]astroparesis Clinic. No answer. Message and call back number provided. Patient identified for Care Coordination from: gastroparesis diagnosis Last PCP office visit: Visit date not found Next OV: 04/10/2025 CHRONIC DX: gastroparesis CARE COORDINATION OUTREACH PLAN: New patient call; awaiting call back Shena Dent RN April 05, 2025 documented in this encounterFort Hamilton Hospital05-07-2025 History of Present illness Narrative* Sherri Gurvinder Garcia, 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-SERVICE DESK ANALYST - 03/28/2025 10:40 AM EDTAssociated Order(s): Debridement Post-Procedure Diagnose(s): Diabetic ulcer of right midfoot associated with type 2 diabetes mellitus, with muscle involvement without evidence of necrosis ([facility]); History of transmetatarsal amputation of right foot ([facility]) Images from the original note were not included. Wound Care Progress Note Patient: More Kingsley . Date of : 1965 Chief Complaint: Right foot ulcer New patient evaluation Subjective/HPI: More is a 59 y.o. male who present to [facility] for evaluation of [...] AUREUS METHICILLIN RESISTANT VARIANT Abnormal Resulting Agency [facility] Today's reported Blood sugar: Patient does [...] notes. Patient Active Problem List Diagnosis Sepsis ([facility]) Diabetic ulcer of left midfoot associated with type 2 diabetes mellitus, with necrosis of bone ([facility]) Chronic osteomyelitis of left foot with draining sinus ([facility]) Wound, open, foot with complication, left, initial encounter Charcot's joint of foot, left Diabetes mellitus ([facility]) Hyperlipidemia Osteomyelitis of left foot ([facility]) Ulcer of right foot with fat layer exposed ([facility]) History of transmetatarsal amputation of right foot ([facility]) Past Medical History: Diagnosis Date Acid reflux Anemia Arthritis Cataract right lens implant Charcot's joint 02/2021 left foot Chronic osteomyelitis of foot ([facility]) 02/2021 left/with draining sinus Dental disease poor repair Diabetes mellitus type 2, controlled ([facility]) 1999 Hyperlipidemia Hypertension PICC (peripherally inserted central catheter) flush 02/2021 Visual impairment glasses Past Surgical History: Procedure Laterality Date AMPUTATION SYMES LOWER EXTREMITY Left 04/18/2021 Performed by Chan Brooke DPM at [facility] AMPUTATION TOEMID FOOT OSTEOTOMY ACHILLES TENOTOMY Left 02/07/2021 Performed by Chan Brooke DPM at [facility] ASPIRATION BONE MARROW BIOPSY BONE MARROW (BONE BIOPSY) Left 03/24/2021 Performed by Chan Brooke DPM at [facility] CLOSURE WOUND LOWER EXTREMITY (DELAYED PRIMARY CLOSURE) Left 03/24/2021 Performed by Chan Brooke DPM at [facility] DEBRIDEMENT FOOT/ANKLE Left 02/07/2021 Performed by Chan Brooke DPM at [facility] EXOSTECTOMY FOOT Right 09/01/2021 Performed by Chan Brooke DPM at [facility] PHACO KELMAN I IMPLANT INTRAOCULAR LENS Right 12/28/2019 Performed by Debra Trejo MD at [facility] REMOVAL HARDWARE FOOT/TOE, AND REMOVAL ANTIBIOTIC SPACER Left 03/24/2021 Performed by Chan Brooke DPM at [facility] TONSILLECTOMY as child Social Drivers of Health Food Insecurity: No Food Insecurity (03/04/2025) Hunger Screening Food Insecurity - Worry: Never True Food Insecurity - Inability: Never True Housing Instability: Low Risk (01/06/2024) Received from [facility] Housing Stability Vital Sign Unable to Pay for Housing in the Last Year: No Number of Places Lived in the Last Year: 1 Unstable Housing in the Last Year: No Transportation Needs: Unmet Transportation Needs (01/06/2024) Received from [facility] PRAPARE - Transportation Lack of Transportation (Medical): Yes Lack of Transportation (Non-Medical): Yes Utility Difficulties: Not on file Interpersonal Safety: Unknown (01/13/2024) Received from [facility] [place] Safety & Environment Fear of Current or Ex-Partner: Not on file Emotionally Abused: Not on file Physically Abused: Not on file Sexually Abused: Not on file Physically or Sexually Abused: Not on file Financial Resource Strain: Low Risk (01/06/2024) Received from [facility] Overall Financial Resource Strain (CARDIA) Difficulty of Paying Living Expenses: Not hard at all Childcare: Low Risk (02/07/2021) Childcare Childcare: No Employment: Low Risk (02/07/2021) Employment Employment: No Purpose - Life: Low Risk (02/07/2021) Purpose - Life Purpose and direction in life: Agree Depression: Not at risk (03/13/2024) Received from [facility] PHQ-2 Patient Health Questionnaire-2 Score: 0 Alcohol Use: Not At Risk (01/06/2024) Received from [facility] AUDIT-C Frequency of Alcohol Consumption: Monthly or less Average Number of Drinks: Patient does not drink Frequency of Binge Drinking: Never Tobacco Use: Low Risk (03/04/2025) Patient History Smoking Tobacco Use: Never Smokeless Tobacco Use: Never Passive Exposure: Not on file Social Connections: Socially Isolated (01/06/2024) Received from [facility] Social Connection and Isolation Panel [NHANES] Frequency of Communication with Friends and Family: Never Frequency of Social Gatherings with Friends and Family: Never Attends Restorationist Services: Never Active Member of Clubs or Organizations: Yes Attends Club or Organization Meetings: Never Marital Status: Physical Activity: Inactive (01/06/2024) Received from [facility] Exercise Vital Sign Days of Exercise per Week: 0 days Minutes of Exercise per Session: 0 min Stress: Stress Concern Present (01/06/2024) Received from [facility] of Occupational Health - Occupational Stress Questionnaire [...] Right;Plantar (Active) Wound Image Heavy callus burden 03/28/251116 Site Assessment Yellow;Red;Moist 03/28/251103 Debi-wound Assessment Brown;Red;Maceration 03/28/251103 Wound Length (cm) 4 cm 03/28/251103 Wound Width (cm) 3.3 cm 03/28/251103 Wound Surface Area (cm^2) 10.37 cm^2 03/28/25 110 Wound Depth (cm) 0.2 cm 03/28/251103 Wound Volume (cm^3) 1.382 cm^3 03/28/251103 Drainage Description Serosanguineous;Junior;Yellow 03/28/251103 Drainage Amount Small [...] Risks discussed: Yes Debridement Details: Performed by: WEIGHT CLERK Type: Sharp Level: Subcutaneous Tissue, Devitalized tissue [...] with muscle involvement without evidence of necrosis ([facility]) 2. History of transmetatarsal amputation of right foot ([facility]) 3. Visit for wound check [...] roll gauze Off-load with a cut out [place] foam pad Change daily Discussed various offloading [...] short term goal is wound compliance. 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 The patient was [...] the electronic or other health record - SHERRI GARCIA APRN-ROSALIA 03/28/25 12:31 PM Sherri Garcia APRN, ROSALIA, CWS, COCN [facility]:[phone] SCOTT Vaughn 03/28/25 1311 SCOTT Vaughn 03/28/25 1619 [facility] Instructions* Patient Instructions* Seema Hassan RN - [...] Description moderate Serosanginous yellow [facility]24 Telephone encounter Note* Telephone Encounter - Leonard Cadet - 11/21/2024 3:[address] Yoon's office phones requesting office note from October 24 When completed, please fax to [phone] Leonard Cadet [facility]12-31-2024 Miscellaneous Notes* Telephone Encounter - Leonard Cadet - 11/21/2024 3:[address] Yoon's office phones requesting office note from October 24 When completed, please fax to [phone] Leonard Cadet [facility]24 NoteHNO ID: [id number] Author: DAVIDA PRICE MD Service: ? Author Type: Physician Type: Progress Notes Filed: 05/20/2025 17:03 Note Text: Summary: Patient not seen Patient was not seen. Miscommunication between my office and the patient. I was out of the office. Will be rescheduled.[facility]12-03-2024 History of Present illness Narrative* Davida Price MD - 10/24/2024 4:57 PM ESTSummary: Patient not seen Patient was not seen. Miscommunication between my office and the patient. I was out of the office. Will be rescheduled. [facility] encounter[facility]08-[facility]24 Telephone encounter Note * Telephone Encounter - Deonna Patel - 06/22/2024 6:55 AM EDT Gp ref and ges in scanned docs Needs registration [facility]08-01-2024 Miscellaneous Notes* Telephone Encounter - Deonna Patel - 06/22/2024 6:55 AM EDT Gp ref and ges in scanned docs Needs registration documented in [facility] encounterFort [facility]06-18-2024 Evaluation note* Author Tracy Yoon [facility] HospitalAuthoredJunjacques 2023 [id number] man with recurrent nausea and vomiting came today for follow-up + Recurrent nausea and vomiting associated with abdominal pain. EGD on 02/03/2024 showed gastritis, gastric biopsies were negative for H. pylori, duodenal biopsies were negative for celiac disease. Symptoms are not responsive to PPI + Uncontrolled diabetes Will arrange for CT abdomen/pelvis. Will arrange for gastric emptying study. [facility] Work Phone: [phone]) 477-383503-14-2024 Procedure noteGuernsey [facility] Hospital01-04-2024 Evaluation note* Encounter Date Diagnosis Assessment Notes Treatment Notes Treatment Clinical Notes Nov, GERD (gastroesophageal reflux di sease) (ICD-10 - K21.9) Nov,Nausea & vomiting (ICD-10 - R11.2)Patient reports that he has no improvement Patient is advised to start amitriptyline 25 mg HS if patient has no improvement with the addition of amitriptyline an EGD will be considered Patient is to continue with famotine and pantoprazole [facility] Other 12-18-2023 Evaluation note* Encounter Date Diagnosis Assessment Notes Treatment Notes Treatment Clinical Notes Oct, Insulin long-term use (ICD-10 - Z79.4) Oct,iabetes mellitus type 2 with complications (ICD-10 - E11.8) 1. Uncontrolled, a Type 2 diabetes with A1c of 10.4% 2. Blood glucose levels above target. Pt oppositional/agitated while questioning during Hpi and with any recommendations- declined diabetes education, declined modifying adding diabetes medications, declined any educational material. Recommend hebe seen by endocrinology d/t complicated diabetes history. Offered referral to Dr. Wallis, pt agreeable. 3. Patient is alert, oriented NOT receptive to making changes or counseling 4. Recommend referral to Dr. Wallis Endocrinology to further manage patient's diabetes. Oct,ietary counseling and surveillance (ICD-10 - Z71.3) see above Oct,HTN (hypertension) (ICD-10 - I10) on luana Oct,Hyperlipidemia (ICD-10 - E78.5) on statin Oct,MI 36.0-36.9,adult (ICD-10 - Z68.36) Oct,Skin breakdown (ICD-10 - L90.9) recommend f/u with Dr. Stephenson [facility] Other 10-04-2023 Evaluation note* Encounter Date Diagnosis Assessment Notes Treatment Notes Treatment Clinical Notes Aug, Nausea & vomiting (ICD-10 - R11. 2) Pt states he vomits mostly in the morning. Aug,ERD (gastroesophageal reflux disease) (ICD-10 - K21.9)Pt states the omeprazole is not working Pt to be on pantoprazle 40mg bid Pt to start pepcid 40 bid Pt to try the low fod map diet Pt RTO in 3 months [facility] Other 04-04-2023 Evaluation note* Encounter Date Diagnosis Assessment Notes Treatment Notes Treatment Clinical Notes Feb, Nausea & vomiting (ICD-10 - R11. 2) Patient states that the vominting actually got worse once he switched to omeprazole. It has calmed down recently but still has the vomiting mostly in the morning. Patient to have allergy testing done to see if there are any food allergies. Feb,ERD (gastroesophageal reflux disease) (ICD-10 - K21.9) [facility] Other 10-04-2022 Evaluation note* Encounter Date Diagnosis Assessment Notes Treatment Notes Treatment Clinical Notes Aug, GERD (gastroesophageal reflux di sease) (ICD-10 - K21.9) Stop Pantoprazole Start Omeprazole 40mg bid, 30 minutes prior to the first meal and last meal of the day. Follow up in 6 months Aug,Nausea & vomiting (ICD-10 - R11.2) [facility] Other Chief complaint+Reason for visit Narrative* Chief Complaint Referral Cheng mayberry DM 6 week follow upReason for VisitNausea and vomiting [facility] Work Phone: Evaluation noteNo InformationNortDanville State Hospital [facility] Other Evaluation note* Diagnosis Onset Date Resolution Status Nausea and vomiting acute [facility] Work Phone: Evaluation note* Diagnosis Diabetic ulcer of right midfoot associated with type 2 diabetes mellitus, with muscle involvement without evidence of necrosis ([facility])- Primary History of transmetatarsal amputation of right foot ([facility]) Visit for wound check documented [facility]* Diagnosis Diabetic ulcer of right midfoot associated with type 2 diabetes mellitus, with muscle involvement without evidence of necrosis ([facility])- Primary History of transmetatarsal amputation of right foot ([facility]) 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 ([facility]) Wound, open, foot with complication, left, initial encounter Unstable ankle, right documented in this encounter [facility]* Diagnosis Benign essential HTN- Primary Type 2 diabetes mellitus with foot ulcer, with long-term current use of insulin (CMS-HCC) Chronic midline low back pain without sciatica Fatty liver disease, nonalcoholic Visit for wound check Hyperglycemia Other abnormal glucose Gastroesophageal reflux disease, unspecified whether esophagitis present documented [facility] encounter [facility]* Diagnosis Diabetic ulcer of right midfoot associated with type 2 diabetes mellitus, with muscle involvement without evidence of necrosis ([facility])- Primary 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 ([facility]) documented in [facility] encounter [facility]* Diagnosis Benign essential [...] Fatigue, unspecified type documented [facility] encounter [facility]* Diagnosis Benign essential [...] of insulin (CMS-HCC) documented in this encounter [facility]* Diagnosis Benign essential [...] insulin (CMS-HCC)- Primary documented in this encounter [facility]* Diagnosis Gastroparesis- Primary [facility] noteNo assessment information availableRegional Medical Center Work Phone: Evaluation note* Diagnosis [...] current use of insulin ([facility]) Benign essential HTN Gastroesophageal reflux disease, unspecified whether esophagitis present Chronic midline low back pain without sciatica Encounter for screening for malignant neoplasm of prostate Fatigue, unspecified type Ulcer of right foot with fat layer exposed ([facility])- Primary Type 2 diabetes mellitus with foot ulcer, with long-term current use of insulin ([facility]) Hyperlipidemia, unspecified hyperlipidemia type Gastroesophageal reflux disease, unspecified whether esophagitis present Peripheral artery disease Type 2 diabetes mellitus with foot ulcer, with long-term current use of insulin ([facility]) documented in this encounter [facility]* Diagnosis Benign essential HTN- Primary Type 2 diabetes mellitus with foot ulcer, with long-term current use of insulin ([facility]) Chronic midline low back pain without sciatica Fatty liver disease, nonalcoholic Visit for wound check Hyperglycemia Other abnormal glucose Gastroesophageal reflux disease, unspecified whether esophagitis present Type 2 diabetes mellitus with foot ulcer, with long-term current use of insulin ([facility]) Benign essential HTN Gastroesophageal reflux disease, unspecified whether esophagitis present Chronic midline low back pain without sciatica Encounter for screening for malignant neoplasm of prostate Fatigue, unspecified type Ulcer of right foot with fat layer exposed ([facility])- Primary Type 2 diabetes mellitus with foot ulcer, with long-term current use of insulin ([facility]) Hyperlipidemia, unspecified hyperlipidemia type Gastroesophageal reflux disease, unspecified whether esophagitis present Peripheral artery disease documented in this encounter [facility]* Diagnosis Benign essential HTN- Primary Type 2 diabetes mellitus with foot ulcer, with long-term current use of insulin ([facility]) Chronic midline low back pain without sciatica Fatty liver disease, nonalcoholic Visit for wound check Hyperglycemia Other abnormal glucose Gastroesophageal reflux disease, unspecified whether esophagitis present Type 2 diabetes mellitus with foot ulcer, with long-term current use of insulin ([facility]) Benign essential HTN Gastroesophageal reflux disease, unspecified whether esophagitis present Chronic midline low back pain without sciatica Encounter for screening for malignant neoplasm of prostate Fatigue, unspecified type Ulcer of right foot with fat layer exposed ([facility])- Primary Type 2 diabetes mellitus with foot ulcer, with long-term current use of insulin ([facility]) Hyperlipidemia, unspecified hyperlipidemia type Gastroesophageal reflux disease, unspecified whether esophagitis present Peripheral artery disease Type 2 diabetes mellitus with other circulatory complication, with long-term current use of insulin([facility])- Primary documented in this encounter [facility]* Diagnosis Benign essential HTN- Primary Type 2 diabetes mellitus with foot ulcer, with long-term current use of insulin ([facility]) Chronic midline low back pain without sciatica Fatty liver disease, nonalcoholic Visit for wound check Hyperglycemia Other abnormal glucose Gastroesophageal reflux disease, unspecified whether esophagitis present Type 2 diabetes mellitus with foot ulcer, with long-term current use of insulin ([facility]) Benign essential HTN Gastroesophageal reflux disease, unspecified whether esophagitis present Chronic midline low back pain without sciatica Encounter for screening for malignant neoplasm of prostate Fatigue, unspecified type Ulcer of right foot with fat layer exposed ([facility])- Primary Type 2 diabetes mellitus with foot ulcer, with long-term current use of insulin ([facility]) Hyperlipidemia, unspecified hyperlipidemia type Gastroesophageal reflux disease, unspecified whether esophagitis present Peripheral artery disease Type 2 diabetes mellitus with other circulatory complication, with long-term current use of insulin([facility])- Primary Type 2 diabetes mellitus with foot ulcer, with long-term current use of insulin ([facility]) Benign essential HTN Mixed hyperlipidemia due to type 2 diabetes mellitus ([facility]) Gastroesophageal reflux disease, unspecified whether esophagitis present Chronic midline low back pain without sciatica Ulcer of right foot with fat layer exposed ([facility]) documented in this encounter [facility]* Diagnosis Benign essential HTN- Primary Type 2 diabetes mellitus with foot ulcer, with long-term current use of insulin ([facility]) Chronic midline low back pain without sciatica Fatty liver disease, nonalcoholic Visit for wound check Hyperglycemia Other abnormal glucose Gastroesophageal reflux disease, unspecified whether esophagitis present Type 2 diabetes mellitus with foot ulcer, with long-term current use of insulin ([facility]) Benign essential HTN Gastroesophageal reflux disease, unspecified whether esophagitis present Chronic midline low back pain without sciatica Encounter for screening for malignant neoplasm of prostate Fatigue, unspecified type Ulcer of right foot with fat layer exposed ([facility])- Primary Type 2 diabetes mellitus with foot ulcer, with long-term current use of insulin ([facility]) Hyperlipidemia, unspecified hyperlipidemia type Gastroesophageal reflux disease, unspecified whether esophagitis present Peripheral artery disease 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 ([facility]) [E11.628, L84]- Primary documented in this encounter [facility]* Diagnosis Benign essential HTN- Primary Type 2 diabetes mellitus with foot ulcer, with long-term current use of insulin ([facility]) Chronic midline low back pain without sciatica Fatty liver disease, nonalcoholic Visit for wound check Hyperglycemia Other abnormal glucose Gastroesophageal reflux disease, unspecified whether esophagitis present Type 2 diabetes mellitus with foot ulcer, with long-term current use of insulin ([facility]) Benign essential HTN Gastroesophageal reflux disease, unspecified whether esophagitis present Chronic midline low back pain without sciatica Encounter for screening for malignant neoplasm of prostate Fatigue, unspecified type Ulcer of right foot with fat layer exposed ([facility])- Primary Type 2 diabetes mellitus with foot ulcer, with long-term current use of insulin ([facility]) Hyperlipidemia, unspecified hyperlipidemia type Gastroesophageal reflux disease, unspecified whether esophagitis present Peripheral artery disease Ulcer of right foot with fat layer exposed ([facility])- Primary documented in this encounter [facility]* Diagnosis Benign essential HTN- Primary Type 2 diabetes mellitus with foot ulcer, with long-term current use of insulin ([facility]) Chronic midline low back pain without sciatica Fatty liver disease, nonalcoholic Visit for wound check Hyperglycemia Other abnormal glucose Gastroesophageal reflux disease, unspecified whether esophagitis present Type 2 diabetes mellitus with foot ulcer, with long-term current use of insulin ([facility]) Benign essential HTN Gastroesophageal reflux disease, unspecified whether esophagitis present Chronic midline low back pain without sciatica Encounter for screening for malignant neoplasm of prostate Fatigue, unspecified type Ulcer of right foot with fat layer exposed ([facility])- Primary Type 2 diabetes mellitus with foot ulcer, with long-term current use of insulin ([facility]) Hyperlipidemia, unspecified hyperlipidemia type Gastroesophageal reflux disease, unspecified whether esophagitis present Peripheral artery disease Gastroesophageal reflux disease, unspecified whether esophagitis present- Primary Type 2 diabetes mellitus with foot ulcer, with long-term current use of insulin ([facility]) Benign essential HTN Chronic midline low back pain without sciatica Mixed hyperlipidemia due to type 2 diabetes mellitus ([facility]) documented in this encounter [facility] SystemHistory and physical note Author Tracy [facility] February 03, 2024 2:08pmNote Date/TimeMarch 2023 2:08pm[place] [address] Gastroenterology H&P Signed Patient: More Kingsley MR#: [id number] : 1965 Acct:[id number] Age/Sex: 58 / M Adm Date: 4 Loc: Room: Type: [facility] Attending Dr: Tracy Yoon MD Copies to: MD Cheng Goodman NP-C~ Date of Service: 02/03/2024 HISTORY & PHYSICAL: Patient's history with special attention to the cardiovascular, pulmonary systems and the current problem was reviewed with the patient immediately prior to the procedure. Present medications and doses reviewed in the EMR. Allergies and pertinent laboratory tests were also re viewedat this time in the EMR. The physical [...] <Electronically signed by Tracy Yoon MD> 02/03/24 1404 [facility] Work Phone: History general Narrative - Reported* Type Description Date Medical History high blood pressure Medical Historyhigh cholesterolMedical Historydiabetes mallitusSurgical History toes removed on right footSurgical Historyleft footSurgical Historyright [facility] Other History general Narrative - Reported* Type Description Date Medical History high blood pressure Medical Historyhigh cholesterolMedical Historydiabetes mellitusMedical History peripheral neuropathyMedical Historyfatty liverMedical Historyretinopathy Surgical Historytoes removed on right footSurgical Historyleft footSurgical Historyright eyeHospitalization HistoryFoot [facility] Other InstructionsNot on filedocumented in this encounter [...] for referral (narrative)No reason for referral information availableRegional Medical Center Work Phone: Reason for visit Narrativereferral Cheng Staples, New patient Type 2IDDM apt with [employer] 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, 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, BC-ADMNort [employer] Other Summary Purpose Family History No Family History Records Found Relationship Condition Age at Onset Recorded Date/T heather Not Specified Diabetes mellitus Unknown sisterDiabetes mellitusUnknownfatherHeart problemUnknownfatherDeceasedUnknown Relationship Condition Age at Onset Recorded Date/T heather Not Specified Diabetes mellitus Unknown sisterDiabetes mellitusUnknownfatherHeart problemUnknownDeceasedUnknown Relationship Condition Age at Onset Recorded Date/T heather mother Diabetes mellitus Unknown sisterDiabetes mellitusUnknownfatherHeart problemUnknownDeceasedUnknown Advance Directives No Advanced Directives Records FoundDocuments on File TypeDate RecordedPatient RepresentativeExplanationAdvance Directives and Living Will11/06/2020 8:18 PMCode StatusDate ActivatedDate InactivatedCommentsFull Code - Xkhewzvvyo75/15/2020 7:21 PM11/21/2020 10:03 PMTypeDate RecordedPatient RepresentativeExplanationAdvance Directives and Living Will11/06/2020 8:18 PM Code StatusDate ActivatedDate InactivatedCommentsFull Code - Unverified 11/05/2020 7:21 PM11/21/2020 10:03 PMTypeDate RecordedPatient Absence Management Consultant ExplanationAdvance Directives and Living Will12/19/2020 8:18 PMTypeDate Recorded Patient RepresentativeExplanationAdvance Directives and Living Will12/27/2020 10:17 AMTypeDate RecordedPatient RepresentativeExplanationAdvance Directives and Living Will01/09/2021 10:17 AMTypeDate RecordedPatient RepresentativeExplanation Advance Directives and Living Will01/24/2021 10:17 AMTypeDate RecordedPatient RepresentativeExplanationAdvance Directives and Living Will02/06/2021 10:17 AM Advance Directive Response Recorded Date/ Time Advance Directives Yes December 7:10am Advance Directive Response Recorded Date/ Time Advance Directives Yes December 8:10am Date ActivatedDate InactivatedComments04/17/2021 12:59 PM04/21/2021 5:08 PMDate ActivatedDate InactivatedComments02/07/2021 2:54 AM02/13/2021 1:11 AMDate ActivatedDate InactivatedComments04/17/2021 12:59 PM04/21/2021 5:08 PMDate ActivatedDate InactivatedComments02/07/2021 2:54 AM02/13/2021 1:11 AM Reason for Referral StatusReasonSpecialtyDiagnoses / ProceduresReferred By ContactReferred To ContactPending Review Specialty Services Required/[facility] Diagnoses Other acute osteomyelitis of left foot (HCC) 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 Diagnosis 1 Nausea & vomiting (R 11.2) Referral Organization [facility] Referring Provider First Name Amor Referring Provider Last Name Dichloe Referring Provider Specialty Gastroenter ology Referred Organization Unknown Facility Referred Provider Specialty Allergy/Immu nology Referral Priority Routine Reason DIABETES MANAGEMENT Diagnosis 1 Diabetes mellitus ty pe 2 with complications (E11.8) Referral Organization [facility] Referring Provider First Name Sebastián Referring Provider Last Name Tyrell Referring Provider Specialty Nurse Pract itioner Referred Organization Unknown Facility Referred Provider Cam Wallis Referred Provider Specialty Endocrinolog y Referral Priority Routine General Notes Suzanne Jordna 10/22 04:07:26 PM >LVM FOR OFFICE TO CALL FOR SCHEDULING. Hospital Course * Palak Arora MD - 11/21/2020 2:49 PM EST HOSPITALIST DISCHARGE SUMMARY Patient: More Kingsley Account: [id number] Admitted: 11/05/2020 Discharge Date/Time: 11/21/2020 Clinical Summary [...] Inpatient consult to Endocrinology Inpatient consult to Family Court Registrar Inpatient consult to Dietitian Inpatient consult to [...] Discharge Diet: Oral nutrition supplements Tyree; Tyree [place] At dinner Oral nutrition supplements Tyree; Tyree [...] Physician(s) Family: Cheng Staples CNP, , Address: [address] [place] [id number] Follow Up: [facility] [address] [facility] [phone] Schedule an appointment as soon as possible for a visit in 2 week(s) Dr. Arabella [facility] Address: Servicing Counties: [facility], [place], [place], [place], [place], [place], [facility] [phone] Patient instructions, including activity, were given to [...] sent through Care Everywhere. * Wound Check ([place] Sudanese) documented in this encounter History of Present [...] Problem: Secondary DM with DKA ([facility]) Active Problems: Type 2 diabetes mellitus with retinopathy of both eyes, with long-term current use of insulin ([facility]) * Joan Trejo LISW - 11/21/2020 12:27 PM EST SIMPLE DISCHARGE Date: 11/21/2020 Time: 12:27 PM Patient Name: More Kingsley Jr. Date of : 1965 Sex: Male Patient has him home vac on . He will get his last antibiotic dose early tonight before discharge. [facility] will deliver antibiotics this evening to patient's home. [facility] will start care on11/23/2020 around 0900. [facility] RN will contact patient this evening to confirm time. Home care orderssent to Arturo at [facility]. He will contact this [...] More Kingsley Jr. Admit Date: MR #: [id number] : 1965 Physicians: Cheng Staples CNP (Family); No ref. provider found (Referring) Assessment: Patient with 1. Left foot abscess, with MSSA 2. Osteomyelitis with MSSA 3. Uncontrolled diabetes. 4. Abdominal pain. 5. Constipation. Plan. Continue patient on current therapyn. Continue patient on IV cefazolin. I reviewed labs, including cultures, with MSSA, and be strep. I appreciate flask carrier evaluation. Patient needs incision and drainage of left foot abscess Dressing according to flask carrier recommendation Endocrinology evaluation for adequate blood sugar [...] Nightly, Chuyita Arias MD, 16 Units at 11/19/204 insulin lispro (HumaLOG) injection 0-15 Units, 0-15 Units, Subcutaneous, at bedtime, Jack Hair CNP, 2 Units at 11/06/202104 insulin lispro (HumaLOG) injection 0-30 Units, 0-30 Units, Subcutaneous, Daily before lunch, Marvel Mcmillan MD, 6 Units at 11/20/20 1355 insulin lispro (HumaLOG) injection 0-30 Units, 0-30 Units, Subcutaneous, Before dinner, Marvel Calero MD, 4 Units at 11/20/20 182 [START ON 11/21/2020] insulin lispro (HumaLOG) injection [...] (NS), 0-150 mL/hr, Intravenous, PRN, Tanja Whitmore, [facility],PharmD, New Bag at 11/11/20 1615 PMH/PSH/SH/ reviewed, [...] excoriations Musculoskeletal: No joint swelling, non tender 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 [facility]/[employer] Workstation ID: [id number] MR Foot Right With And Without Contrast Final Result 1. Prior forefoot resection. Cellulitis of the surgical stump is seen associated with small ulceration. 2. No abscess. 3. No MR signs of osteomyelitis. 4. Ndlj-xr-qbjdbjnl mid/hindfoot osteoarthritis. 5. Remote sprains of the ATFL and deep fibers of the deltoid ligament, as above. [employer] Workstation ID: [id number] XR Foot Left 3+ [...] long-term current use of insulin ([facility]) Relevant Medications insulin glargine (LANTUS) [...] Arora MD - 11/20/2020 5:49 PM EST [facility] Medicine Inpatient Follow-up 11/20/2020 Palak Arora MD [facility] Patient: More Kingsley . Date of [...] Q8H heparin (porcine) 5,000 Units Subcutaneous Q8H [facility] insulin glargine 25 Units Subcutaneous Nightly lispro insulin 0-15 Units Subcutaneous at bedtime insulin lispro 0-30 Units Subcutaneous Daily before lunch insulin lispro 0-30 Units Subcutaneous Before dinner [START ON 11/21/2020] insulin lispro 0-30 Units Subcutaneous QAM AC pantoprazole 40 mg Oral Daily sodium chloride (PF) 10 mL Intracatheter Q8H [facility] Results/Medications Reviewed 11/20/20 5:49 PM: Results from [...] of bed rail) Sit to Supine: Modified Henderson(HOB elevated) Skilled Intervention: Pt seated EOB ~11 [...] . Prior Level of Function Level of Henderson: Independent with ADLs and functional transfers Lives [...] 11/20/2020 Time: 2:52 PM Patient Name: More Roger Kingsley Jr. Date of : 1965 Sex: Male This filler sifter machine received call back from [facility], agency able to accept patient and start care on WednesdayNovember 22. Joan professor of social work updated. Abdoulaye Menjivar [facility] Disposition Regulatory Documentation: Medicare IM Regulatory Documentation Status: Signed Signed: Self * Joan Trejo LISW - 11/20/2020 10:35 AM EST DISCHARGE PLAN PROGRESS NOTE Date: 11/20/2020 Time: 10:35 AM Patient Name: More Kingsley Jr. Date of : 1965 Sex: Male [facility] contacted this worker. Patient has medicare part [...] due to amount of wound vac drainage. [facility] Disposition Regulatory Documentation: Medicare IM Regulatory Documentation Status: Signed Signed: Self * Marvel Mcmillan MD - 11/20/2020 9:55 AM EST Patient ID: Patient Name: More Kingsley Jr. Admit Date: 11/05/2020 MR #: [id number] : 1965 Current location: [facility] Physicians: Cheng Staples CNP (Family); Dr. Pinedo [...] CPM 11/14: Continue current insulin doses. Consult cryptologic support specialist for gastroparesis diet education. 11/18: CPM 11/19: CPM 11/20 Discharge on 5 H TID ac and 25 Lantus, plus SSI. Can restart metformin 1000 mg BID. [facility] in [facility] 2. Education: Reviewed ABCs of diabetes management [...] with IV ATB. Pt does live in [place], is willing to follow up in wound [...] More Kingsley Jr. Admit Date: MR #: [id number] : 1965 Physicians: Cheng Staples CNP (Family); No ref. provider found (Referring) Assessment: Patient with 1. Left foot abscess, with MSSA 2. Osteomyelitis with MSSA 3. Uncontrolled diabetes. 4. Abdominal pain. 5. Constipation. Plan. Continue patient on current therapyn. Continue patient on IV cefazolin. I reviewed labs, including cultures, with MSSA, and be strep. I appreciate flask carrier evaluation. Patient needs incision and drainage of left foot abscess Dressing according to flask carrier recommendation Endocrinology evaluation for adequate blood sugar [...] Units, 0-15 Units, Subcutaneous, at bedtime, Jack SergiopierreROSALIA, 2 Units at 11/06/20 210 insulin lispro [...] (NS), 0-150 mL/hr, Intravenous, PRN, Tanja Whitmore, [facility],PharmD, New Bag at 11/11/20 1615 PMH/PSH/SH/FH reviewed, [...] excoriations Musculoskeletal: No joint swelling, non tender FROZEN FOOD SELECTOR: Awake, and Ox3 Wound: Foot with description [...] retained stool in the proximal colon and vvqvq-ob-pozuonbx amount of retained stool in the distal [...] No tendon tear or tenosynovitis is seen. [facility]/[employer] Workstation ID: [id number] MR Foot Right With And Without Contrast Final Result 1. Prior forefoot resection. Cellulitis of the surgical stump is seen associated with small ulceration. 2. No abscess. 3. No MR signs of osteomyelitis. 4. Xesp-rw-hamxrsoh mid/hindfoot osteoarthritis. 5. Remote sprains of the ATFL and deep fibers of the deltoid ligament, as above. [facility]/[employer] Workstation ID: [id number] XR Foot Left 3+ [...] by contextual derivation. * Jai Kumar Jr., ELIE - 11/19/2020 3:54 PM EST Assessment: (Patient [...] 3602 [Urine:3600; Blood:2] I/O this shift: In: 9.9 [I.V.:2098.9] Out: - Objective Vascular: DP/PT pulses [...] Problem: Secondary DM with DKA ([facility]) Active Problems: Type 2 diabetes mellitus with retinopathy of both eyes, with long-term current use of insulin ([facility]) * Joan Trejo LISW - 11/19/2020 3:16 PM EST This worker was advised to sent referral to [facility]. Referral faxed. Message left for [place]. * Joan Trejo LISW - 11/19/2020 2:31 [...] vac. Patient would like to go home. [facility] notified to check him home infusion benefits. Care coordination following. * Scarlett German - 11/19/2020 12:12 PM EST DISCHARGE PLAN PROGRESS NOTE Date: 11/19/2020 Time: 12:12 PM Patient Name: More Kingsley Jr. Date of : 1965 Sex: Male Spoke with pt regarding [facility], #1 choice [facility] ([phone]). Spoke with Seema and faxed free text to [phone] the [facility] referral and asked for a return call as soon as possible. Pt discharged possibly tomorrow. 13:18 - Rec'd call from Seema with [facility] and they CANNOT accept pt due to lack of staffing. Will try # 2 - [facility] ([phone]). 13:21 - Called # 2& spoke to Racquel, Free text referral to fax [phone] @ 13:26. Informed Ranjana via secure chat. 15:25 - Called [facility] and Paola said they never rec'd fax sent at 13:26. Spoke with Ranjana and she said to move on to [facility]'s 2 suggestions 1)[facility] @ [phone]. I called and they have NO staff at this time to service [place]. Moved on to 2) [facility], ([phone]) spoke with Evette and she said I could fax the referral ([phone]) which I did at 15:42. Scarlett German [...] . Prior Level of Function Level of Henderson: Independent with ADLs and functional transfers Lives [...] Kingsley Jr. Admit Date: 11/05/2020 MR #: [id number] : 1965 Current location: [facility] Physicians: Cheng Staples CNP (Family); Dr. Pinedo [...] CPM 11/14: Continue current insulin doses. Consult cryptologic support specialist for gastroparesis diet education. 11/18: CPM 11/19: CPM 2. Education: Reviewed ABCs of diabetes management (respective goals in parentheses): A1C (7.0-8.0), blood pressure (<130/80), and cholesterol (LDL <100). Referral to Diabetes Education Referral to Nutrition therapy Subjective: 11/19: Patient resting quietly in bed. He has no new issues. Brief HPI: Mr. Kingslye is a 54 year old male with [...] Arora MD - 11/19/2020 8:34 AM EST [facility] Medicine Inpatient Follow-up 11/19/2020 Palak Arora MD [facility] Patient: More Kingsley . Date of [...] More Kingsley Jr. Admit Date: MR #: [id number] : 1965 Physicians: Cheng Staples CNP (Family); No ref. provider found (Referring) Assessment: Patient with 1. Left foot abscess, with MSSA 2. Osteomyelitis with MSSA 3. Uncontrolled diabetes. 4. Abdominal pain. 5. Constipation. Plan. Continue patient on current therapyn. Continue patient on IV cefazolin. I reviewed labs, including cultures, with MSSA, and be strep. I appreciate flask carrier evaluation. Patient needs incision and drainage of left foot abscess Dressing according to flask carrier recommendation Endocrinology evaluation for adequate blood sugar [...] injection 5,000 Units, 5,000 Units, Subcutaneous, Q8H [facility], Chuyita Arias MD, Stopped at 11/18/20 0600 [...] PRN, Jean Farley MD, 1 tablet at 11/17/20 5386 pantoprazole (PROTONIX) EC tablet 40 mg, 40 mg, Oral, Daily, Chuyita Arias MD, 40 mg at 11/18/20 0857 sodium chloride 0.9% (NS), 0-150 mL/hr, Intravenous, PRN, Tanja Whitmore, [facility],PharmD, New Bag at 11/11/20 1615 PMH/PSH/SH/ reviewed, [...] retained stool in the proximal colon and vtasb-oa-bupzvmjo amount of retained stool in the distal [...] No tendon tear or tenosynovitis is seen. [facility]/[employer] Workstation ID: [id number] MR Foot Right With And Without Contrast Final Result 1. Prior forefoot resection. Cellulitis of the surgical stump is seen associated with small ulceration. 2. No abscess. 3. No MR signs of osteomyelitis. 4. Yuvr-io-koklmuvk mid/hindfoot osteoarthritis. 5. Remote sprains of the ATFL and deep fibers of the deltoid ligament, as above. [facility]/[employer] Workstation ID: [id number] XR Foot Left 3+ [...] 0612) lactated Ringers 100 mL/hr (11/17/20 1135) [Jan] sodium chloride 0.9 % Estimated Energy Needs Total Energy Estimated Needs: 1950 kcals/day Method for Estimating Needs: MSJ x 1.3AF -500 kcals/day to promote 1# weight loss/week Total Protein Estimated Needs: 81-97 gms/day Method for Estimating Needs: 1.0-1.2 gms/kg adjusted BW Will continue to follow. Rosalinda Reyes RDN, LD Dietitian's Office [phone] * Palak Arora MD - 11/18/2020 9:28 AM EST [facility] Medicine Inpatient H&P 11/18/2020 Palak Arora MD [facility] Patient: More Kingsley Jr. Date of : 1965 (55 y.o.) PCP: Cheng Staples, SERVICE DESK ANALYST Assessment More Kingsley is a 54 y.o. [...] 7 days Lab Units 11/18/20 0511/17/2062611/16/20 0603 WBC K/mcL 8.56 9.40 9.26 HGB [...] Kingsley Jr. Admit Date: 11/05/2020 MR #: [id number] : 1965 Current location: [facility] Physicians: Cheng Staples CNP (Family); Dr. Pinedo [...] CPM 11/14: Continue current insulin doses. Consult cryptologic support specialist for gastroparesis diet education. 11/18: CPM 2. [...] records. Laboratory and Additional Data Reviewed: Laboratory 12/28/20 8:39 AM Medications 11/18/20 8:39 AM Transcriptions 11/18/20 8:39 AM Thank you for this consultation, we will continue to follow this patient with you. Electronically signed by Olga CHAVEZ 208:39 AM * Marcella Bell MD - 11/17/2020 3:31 PM EST Patient Name: More Kingsley Jr. Admit Date: MR #: [id number] : 1965 Physicians: Cheng Staples CNP (Family); No ref. provider found (Referring) Assessment: Patient with 1. Left foot abscess, with MSSA 2. Osteomyelitis with MSSA 3. Uncontrolled diabetes. 4. Abdominal pain. 5. Constipation. Plan. Continue patient on current therapyn. Continue patient on IV cefazolin. I reviewed labs, including cultures, with MSSA, and be strep. I appreciate flask carrier evaluation. Patient needs incision and drainage of left foot abscess Dressing according to flask carrier recommendation Endocrinology evaluation for adequate blood sugar [...] (NS), 0-150 mL/hr, Intravenous, PRN, Tanja Whitmore, [facility],PharmD, New Bag at 11/11/20 1615 PMH/PSH/SH/ reviewed, [...] excoriations Musculoskeletal: No joint swelling, non tender FROZEN FOOD SELECTOR: Awake, and Ox3 Wound: Foot with description [...] retained stool in the proximal colon and pjojb-ru-xiynqlhz amount of retained stool in the distal [...] No tendon tear or tenosynovitis is seen. [facility] Workstation ID: [id number] MR Foot Right With And Without Contrast Final Result 1. Prior forefoot resection. Cellulitis of the surgical stump is seen associated with small ulceration. 2. No abscess. 3. No MR signs of osteomyelitis. 4. Boee-jk-qyefysnk mid/hindfoot osteoarthritis. 5. Remote sprains of the ATFL and deep fibers of the deltoid ligament, as above. [facility]/[employer] Workstation ID: [id number] XR Foot Left 3+ [...] Arias MD - 11/17/2020 10:29 AM EST [facility] Inpatient H&P 11/17/2020 Chuyita Arias MD [facility] Patient: More Kingsley Jr. Date of : 1965 (55 y.o.) PCP: Cheng Staples, SERVICE DESK ANALYST Assessment More Kingsley is a 54 y.o. [...] retained stool in the proximal colon and inbjp-hb-yfxnogxf amount of retained stool in the distal [...] Results from last 7 days Lab Units 11/17/2062611/16/20 0611/15/20 0519 SODIUM mmol/L 136 138 137 POTASSIUM [...] Progress Inpatient Follow-up 11/17/2020 Braeden Conte DPM [facility] Patient: More Kingsley Jr. Date of [...] 33.21 kg/m Laboratory and Additional Data Reviewed: Reviewed:[id number]} * Marcella Bell MD - 11/16/2020 7:11 PM EST Patient Name: More Kingsley Jr. Admit Date: MR #: [id number] : 1965 Physicians: Cheng Staples CNP (Family); No ref. provider found (Referring) Assessment: Patient with 1. Left foot abscess, with MSSA 2. Osteomyelitis with MSSA 3. Uncontrolled diabetes. 4. Abdominal pain. 5. Constipation. Plan. Continue patient on current therapyn. Continue patient on IV cefazolin. I reviewed labs, including cultures, with MSSA, and be strep. I appreciate flask carrier evaluation. Patient needs incision and drainage of left foot abscess Dressing according to flask carrier recommendation Endocrinology evaluation for adequate blood sugar [...] (NS), 0-150 mL/hr, Intravenous, PRN, Tanja Whitmore, [facility],PharmD, New Bag at 11/11/20 1615 PMH/PSH/SH/ reviewed, [...] excoriations Musculoskeletal: No joint swelling, non tender FROZEN FOOD SELECTOR: Awake, and Ox3 Wound: Foot with description [...] retained stool in the proximal colon and joyrp-pd-qtqormrn amount of retained stool in the distal [...] 3. No MR signs of osteomyelitis. 4. Uyat-es-mplqdbfc mid/hindfoot osteoarthritis. 5. Remote sprains of the ATFL and deep fibers of the deltoid ligament, as above. [facility] Workstation ID: [id number] XR Foot Left 3+ [...] Progress Inpatient Follow-up 11/16/2020 Braeden Conte DPM [facility] Patient: More Kingsley Jr. Date of [...] 33.21 kg/m Laboratory and Additional Data Reviewed: Reviewed:[id number]} * Chuyita Arias MD - 11/16/2020 11:26 AM EST [facility] Medicine Inpatient H&P 11/16/2020 Chuyita Arias MD [facility] Patient: More Kingsley Jr. Date of : 1965 (55 y.o.) PCP: Cheng Staples, SERVICE DESK ANALYST Assessment More Kingsley is a 54 y.o. [...] retained stool in the proximal colon and pgwfs-vn-wpkwgeqc amount of retained stool in the distal [...] last 7 days Lab Units 11/16/20 0603 11/15/2051811/14/20 0322 SODIUM mmol/L 138 137 135 POTASSIUM [...] More Kingsley Jr. Admit Date: MR #: [id number] : 1965 Physicians: Cheng Staples CNP (Family); No ref. provider found (Referring) Assessment: Patient with 1. Left foot abscess, with MSSA 2. Osteomyelitis with MSSA 3. Uncontrolled diabetes. 4. Abdominal pain. Plan. Continue patient on current therapyn. Continue patient on IV cefazolin. I reviewed labs, including cultures, with MSSA, and be strep. I appreciate flask carrier evaluation. Patient needs incision and drainage of left foot abscess Dressing according to flask carrier recommendation Endocrinology evaluation for adequate blood sugar [...] Units, 0-30 Units, Subcutaneous, QAM AC, Marvel Mcmilaln MD, 2 Units at 11/15/20 0847 insulin [...] (NS), 0-150 mL/hr, Intravenous, PRN, Tanja Whitmore, [facility],PharmD, New Bag at 11/11/20 1615 PMH/PSH// reviewed, [...] retained stool in the proximal colon and bfieo-qj-nkcnoxhs amount of retained stool in the distal [...] No tendon tear or tenosynovitis is seen. [facility] Workstation ID: [id number] MR Foot Right With And Without Contrast Final Result 1. Prior forefoot resection. Cellulitis of the surgical stump is seen associated with small ulceration. 2. No abscess. 3. No MR signs of osteomyelitis. 4. Csbq-tp-dqwavlvu mid/hindfoot osteoarthritis. 5. Remote sprains of the ATFL and deep fibers of the deltoid ligament, as above. [facility]/[employer] Workstation ID: [id number] XR Foot Left 3+ [...] Progress Inpatient Follow-up 11/15/2020 Braeden Conte DPM [facility] Patient: More Kingsley Jr. Date of [...] antibiotics. Patient sees Dr. Eric Stephenson his flask carrier at [facility] ([phone]) for wound care normally. Patient would like [...] to his home which is up by [facility]. Patient denies nausea vomiting fevers or chills [...] 33.21 kg/m Laboratory and Additional Data Reviewed: Reviewed:[id number]} * Chuyita Arias MD - 11/15/2020 11:19 AM EST [facility] Medicine Inpatient H&P 11/15/2020 Chuyita Arias MD [facility] Patient: More Kingsley . Date of : 1965 (55 y.o.) PCP: Cheng Staples, SERVICE DESK ANALYST Assessment More Kingsley is a 54 y.o. [...] Results from last 7 days Lab Units 11/15/20 0519 11/14/20 0322 11/13/20 0527 SODIUM mmol/L 137 135 135 POTASSIUM mmol/L 3.7 4.0 4.0 CHLORIDE mmol/L 106 105 105 BUN mg/dL 14 14 13 CREATININE mg/dL 0.89 0.97 0.85 GLUCOSE mg/dL 139* 153* 176* CALCIUM mg/dL 8.4 7.9* 7.8* Results from last 7 days Lab Units 11/15/20 0519 11/14/20 0322 11/13/20 0527 WBC K/mcL 8.97 10.09 10.51 HGB g/dL 10.5* 10.0* 10.1* HCT % 34.1* 33.3* 32.7* PLT K/mcL 633* 583* 545* Invalid input(s): LABALBU CULTURES: Reviewed 11:19 AM IMAGING: Reviewed 11:19 AM * Marcella Bell MD - 11/14/2020 5:05 PM EST Patient Name: More Kingsley Jr. Admit Date: MR #: [id number] : 1965 Physicians: Cheng Staples CNP (Family); No ref. provider found (Referring) Assessment: Patient with 1. Left foot abscess, with MSSA 2. Osteomyelitis with MSSA 3. Uncontrolled diabetes. Plan. Continue patient on current therapyn. Continue patient on IV cefazolin. I reviewed labs, including cultures, with MSSA, and be strep. I appreciate flask carrier evaluation. Patient needs incision and drainage of left foot abscess Dressing according to flask carrier recommendation Endocrinology evaluation for adequate blood sugar [...] (NS), 0-150 mL/hr, Intravenous, PRN, Tanja Whitmore, [facility],PharmD, New Bag at 11/11/20 1615 PMH/PSH/SH/ reviewed, [...] excoriations Musculoskeletal: No joint swelling, non tender FROZEN FOOD SELECTOR: Awake, and Ox3 Wound: Foot with description [...] No tendon tear or tenosynovitis is seen. MPH/[employer] Workstation ID: [id number] MR Foot Right With And Without Contrast Final Result 1. Prior forefoot resection. Cellulitis of the surgical stump is seen associated with small ulceration. 2. No abscess. 3. No MR signs of osteomyelitis. 4. Dohe-iz-mjlihxhf mid/hindfoot osteoarthritis. 5. Remote sprains of the ATFL and deep fibers of the deltoid ligament, as above. MPH/[employer] Workstation ID: [id number] XR Foot Left 3+ [...] meaning can be extrapolated by contextual derivation. Elise Cook, REGINAR/Daryn - 11/14/2020 3:41 PM EST Occupational Therapy [...] foot after Dr Cherry had reported to [facility] pt can heel WB only through [...] . Prior Level of Function Level of Henderson: Independent with ADLs and functional transfers Lives [...] Arias MD - 11/14/2020 10:45 AM EST [facility] Medicine Inpatient H&P 11/14/2020 Chuyita Arisa MD [facility] Patient: More Kingsley Jr. Date of : 1965 (55 y.o.) PCP: Cheng Staples CNP Assessment More Kingsley is a 54 y.o. [...] last 7 days Lab Units 11/14/20 0322 11/13/2052611/12/20 0257 SODIUM mmol/L 135 135 135 POTASSIUM [...] AM IMAGING: Reviewed 10:45 AM * Ryan Conte, ELIE - 11/14/2020 10:39 AM EST Progress Inpatient Follow-up 11/14/2020 Ryan Conte DPM [facility] Patient: More Kingsley Jr. 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 [place] on the wound VAC was approximately a [...] 33.21 kg/m Laboratory and Additional Data Reviewed: Reviewed:[id number]} * Nam Briggs PA-C - 11/14/2020 9:54 AM EST Patient ID: Patient Name: More Kingsley Jr. Admit Date: 11/05/2020 MR #: [id number] : 1965 Current location: [facility] Physicians: Cheng Staples CNP (Family); Dr. Pinedo [...] CPM 11/14: Continue current insulin doses. Consult cryptologic support specialist for gastroparesis diet education. 2. Education: Reviewed [...] CHANGE; Surgeon: Leanne Cherry DPM; Location: [place]; Service: Podiatry HAND SURGERY Left WOUND VAC [...] you. Electronically signed by: Nam Briggs PA-C, [facility] 11/14/20 9:55 AM * Marcella Bell MD - 11/13/2020 8:26 PM EST Patient Name: More Kingsley Jr. Admit Date: MR #: [id number] : 1965 Physicians: Cheng Staples, ROSALIA (Family); No ref. provider found (Referring) Assessment: Patient with 1. Left foot abscess, with MSSA 2. Suspicion for osteomyelitis 3. Uncontrolled diabetes. Plan. Continue patient on current therapyn. Continue patient on IV cefazolin. I reviewed labs, including cultures, with MSSA, and be strep. I appreciate flask carrier evaluation. Patient needs incision and drainage of left foot abscess Dressing according to flask carrier recommendation Endocrinology evaluation for adequate blood sugar [...] Chuyita Arias MD, 5,000 Units at 11/13/20 155 insulin glargine (LANTUS) injection 25 Units, 25 Units, Subcutaneous, Nightly, Chuyita Arias MD, 25 Units at 11/12/202111 insulin lispro (HumaLOG) injection 0-15 Units, 0-15 Units, Subcutaneous, at bedtime, Jack Hair CNP, 2 Units at 11/06/20 210 insulin lispro (HumaLOG) injection 0-30 Units, 0-30 Units, Subcutaneous, [facility], Marvel Mcmillan MD, 3 Units at 11/10/20 [...] mL/hr at 11/13/20 1825, 100 mL/hr at 11/13/20 182 lactated Ringers infusion, 100 mL/hr, Intravenous, Continuous, [...] (NS), 0-150 mL/hr, Intravenous, PRN, Tanja Whitmore, [facility],PharmD, New Bag at 11/11/20 1615 PMH/PSH/SH/ reviewed, [...] excoriations Musculoskeletal: No joint swelling, non tender FROZEN FOOD SELECTOR: Awake, and Ox3 Wound: Foot with description [...] No tendon tear or tenosynovitis is seen. MPH/[employer] Workstation ID: [id number] MR Foot Right With And Without Contrast Final Result 1. Prior forefoot resection. Cellulitis of the surgical stump is seen associated with small ulceration. 2. No abscess. 3. No MR signs of osteomyelitis. 4. Sufc-am-wzpnmmnp mid/hindfoot osteoarthritis. 5. Remote sprains of the ATFL and deep fibers of the deltoid ligament, as above. MPH/[employer] Workstation ID: [id number] XR Foot Left 3+ [...] Arias MD - 11/13/2020 11:32 AM EST [facility] Medicine Inpatient H&P 11/13/2020 Chuyita Arias MD [facility] Patient: More Kingsley Jr. Date of : 1965 (55 y.o.) PCP: Cheng Staples, SERVICE DESK ANALYST Assessment More Kingsley is a 54 y.o. [...] Results from last 7 days Lab Units 11/13/20 0527 11/12/20 0257 11/11/20 0537 SODIUM mmol/L 135 135 137 POTASSIUM mmol/L 4.0 4.1 4.0 CHLORIDE mmol/L 105 104 106 BUN mg/dL 13 10 8 CREATININE mg/dL 0.85 0.84 1.00 GLUCOSE mg/dL 176* 86 108* CALCIUM mg/dL 7.8* 8.0* 8.1* Results from last 7 days Lab Units 11/13/20 0527 11/12/20 0257 11/11/20 0537 WBC K/mcL 10.51 13.36* 11.96* HGB g/dL 10.1* 10.1* 11.2* HCT % 32.7* 32.7* 36.2* PLT K/mcL 545* 497* 511* Invalid input(s): LABALBU CULTURES: Reviewed 11:32 AM IMAGING: Reviewed 11:32 AM * Marvel Mcmillan MD - 11/13/2020 9:22 AM EST Patient ID: Patient Name: More Kingsley Jr. Admit Date: 11/05/2020 MR #: [id number] : 1965 Current location: [facility] Physicians: Cheng Staples CNP (Family); Dr. Pinedo [...] Problem: Secondary DM with DKA ([facility]) Active Problems: Type 2 diabetes mellitus with retinopathy of both eyes, with long-term current use of insulin ([facility]) * Marcella Bell MD - 11/12/2020 2:05 PM EST Patient Name: More Kingsley Jr. Admit Date: MR #: [id number] : 1965 Physicians: Cheng Staples CNP (Family); No ref. provider found (Referring) Assessment: Patient with 1. Left foot abscess, with MSSA 2. Suspicion for osteomyelitis 3. Uncontrolled diabetes. Plan. Continue patient on current therapyn. Continue patient on IV cefazolin. I reviewed labs, including cultures, with MSSA, and be strep. I appreciate flask carrier evaluation. Patient needs incision and drainage of left foot abscess I reviewed MRI of the foot, with Extensive cellulitis, and concern for septic arthroplathy and osteomyelitis of the left foot Dressing according to flask carrier recommendation Endocrinology evaluation for adequate blood sugar [...] (NS), 0-150 mL/hr, Intravenous, PRN, Tanja Whitmore, [facility],PharmD, New Bag at 11/11/20 1615 PMH/PSH/SH/ reviewed, [...] excoriations Musculoskeletal: No joint swelling, non tender FROZEN FOOD SELECTOR: Awake, and Ox3 Wound: Foot with description [...] No tendon tear or tenosynovitis is seen. MPH/[employer] Workstation ID: [id number] MR Foot Right With And Without Contrast Final Result 1. Prior forefoot resection. Cellulitis of the surgical stump is seen associated with small ulceration. 2. No abscess. 3. No MR signs of osteomyelitis. 4. Frfe-jd-ckzqrlay mid/hindfoot osteoarthritis. 5. Remote sprains of the ATFL and deep fibers of the deltoid ligament, as above. MPH/[employer] Workstation ID: [id number] XR Foot Left 3+ [...] Arias MD - 11/12/2020 11:38 AM EST [facility] Medicine Inpatient H&P 11/12/2020 Chuyita Arias MD [facility] Patient: More Kingsley Jr. Date of : 1965 (55 y.o.) PCP: Cheng Staples, SERVICE DESK ANALYST Assessment More Kingsley is a 54 y.o. [...] Results from last 7 days Lab Units 11/12/2025611/11/2053611/10/20 0314 SODIUM mmol/L 135 137 136 POTASSIUM mmol/L 4.1 4.0 3.4* CHLORIDE mmol/L 104 106 104 BUN mg/dL 10 8 8 CREATININE mg/dL 0.84 1.00 0.94 GLUCOSE mg/dL 86 108* 151* CALCIUM mg/dL 8.0* 8.1* 7.9* Results from last 7 days Lab Units 11/12/2025611/11/20 0537 11/10/20 0314 WBC K/mcL 13.36* 11.96* [...] IMAGING: Reviewed 11:38 AM * Iliana Aggarwal, ROUTE JUMPER - 11/12/2020 10:25 AM EST Physical Therapy [...] Stand: Min Stand Pivot Transfers: Contact guard Funeral Pre Need Consultant: Wheeled walker Skilled Intervention: Pt required vc [...] . Prior Level of Function Level of Henderson: Independent with ADLs and functional transfers Lives [...] . Prior Level of Function Level of Henderson: Independent with ADLs and functional transfers Lives [...] Occupational Therapy Plan of Care. * Olga Padgett, AUDI - 11/12/2020 9:41 AM EST Nutrition Care [...] Kingsley Jr. Admit Date: 11/05/2020 MR #: [id number] : 1965 Current location: [facility] Physicians: Cheng Staples CNP (Family); Dr. Pinedo [...] More Kingsley Jr. Admit Date: MR #: [id number] : 1965 Physicians: Cheng Staples CNP (Family); No ref. provider found (Referring) Assessment: Patient with 1. Left foot abscess 2. Suspicion for osteomyelitis 3. Uncontrolled diabetes. Plan. Continue patient on current therapyn. Continue patient on IV cefazolin. I reviewed labs, including cultures, with MSSA, and be strep. I appreciate flask carrier evaluation. Patient needs incision and drainage of left foot abscess I reviewed MRI of the foot, with Extensive cellulitis, and concern for septic arthroplathy and osteomyelitis of the left foot Dressing according to flask carrier recommendation Endocrinology evaluation for adequate blood sugar [...] g (premix), 2,000 mg, Intravenous, Q8H, Mady eTjada CNP, Last Rate: 100 mL/hr at 11/11/20 [...] (NS), 0-150 mL/hr, Intravenous, PRN, Tanja Whitmore, [facility],PharmD PMH/PSH/SH/ reviewed, no change : Review of [...] excoriations Musculoskeletal: No joint swelling, non tender FROZEN FOOD SELECTOR: Awake, and Ox3 Wound: Foot with description [...] No tendon tear or tenosynovitis is seen. [employer] Workstation ID: [id number] MR Foot Right With And Without Contrast Final Result 1. Prior forefoot resection. Cellulitis of the surgical stump is seen associated with small ulceration. 2. No abscess. 3. No MR signs of osteomyelitis. 4. Nvlg-jk-vocyahig mid/hindfoot osteoarthritis. 5. Remote sprains of the ATFL and deep fibers of the deltoid ligament, as above. MPH/[employer] Workstation ID: [id number] XR Foot Left 3+ [...] Arias MD - 11/11/2020 12:06 PM EST [facility] Medicine Inpatient H&P 11/11/2020 Chuyita Arias MD [facility] Patient: More Kingsley Jr. Date of : 1965 (55 y.o.) PCP: Cheng Staples, SERVICE DESK ANALYST Assessment More Kingsley is a 54 y.o. [...] last 7 days Lab Units 11/11/20 0537 11/10/2031311/09/20 05 SODIUM mmol/L 137 136 135 POTASSIUM mmol/L 4.0 3.4* 3.1* CHLORIDE mmol/L 106 104 103 BUN mg/dL 8 8 10 CREATININE mg/dL 1.00 0.94 0.84 GLUCOSE mg/dL 108* 151* 85 CALCIUM mg/dL 8.1* 7.9* 7.6* Results from last 7 days Lab Units 11/11/20 0537 11/10/2031311/09/20 05 WBC K/mcL 11.96* 12.21* 11.42* HGB g/dL [...] Kingsley Jr. Admit Date: 11/05/2020 MR #: [id number] : 1965 Current location: [facility] Physicians: Cheng Staples CNP (Family); Dr. Pinedo [...] you. Electronically signed by: Nam Briggs PA-C, [facility] 11/11/20 10:50 AM * Slyfarnaz Tricia, ROUTE JUMPER - 11/11/2020 8:43 AM EST Physical Therapy [...] TE) HEP educated for DOC LE therex: 5g04-64 reps In each direction to improve ms and carryover of improved mobility. Print out provided as well. Pt verbally agrees to perform most as long as no back pain. Home Living Type of Home: House Home Layout: One level, Stairs to enter with rails(5 BRINDA, B HR) Prior Level of Function Level of Henderson: Independent with ADLs and functional transfers Lives [...] Progress Inpatient Follow-up 2020 Leanne Cherry DPM [facility] Patient: More Kingsley . Date of [...] calf pain. Laboratory and Additional Data Reviewed: Reviewed:[id number]} * Marcella Bell MD - 2020 2:47 PM EST Patient Name: More Kingsley Jr. Admit Date: MR #: [id number] : 1965 Physicians: Cheng Staples CNP (Family); No ref. provider found (Referring) Assessment: Patient with 1. Left foot abscess 2. Suspicion for osteomyelitis 3. Uncontrolled diabetes. Plan. Continue patient on current therapyn. Continue patient on IV cefazolin. I reviewed labs, including cultures, with MSSA, and be strep. I appreciate flask carrier evaluation. Patient needs incision and drainage of left foot abscess I reviewed MRI of the foot, with Extensive cellulitis, and concern for septic arthroplathy and osteomyelitis of the left foot Dressing according to flask carrier recommendation Endocrinology evaluation for adequate blood sugar [...] injection 5,000 Units, 5,000 Units, Subcutaneous, [facility], Chuyita Arias MD, 5,000 Units at 11/10/20 1402 [START ON 11/11/2020] insulin glargine (LANTUS) injection 25 Units, 25 Units, Subcutaneous, QAM, Marvel Mcmillan MD insulin glargine (LANTUS) injection 25 Units, 25 Units, Subcutaneous, Nightly, Marvel Mcmillan MD insulin lispro (HumaLOG) injection 0-15 Units, 0-15 Units, Subcutaneous, at bedtime, Jack Hair, SERVICE DESK ANALYST, 2 Units at 11/06/20 2105 insulin lispro [...] (NS), 0-150 mL/hr, Intravenous, PRN, Tanja Whitmore, [facility],PharmD PMH/PSH/SH/FH reviewed, no change : Review of [...] excoriations Musculoskeletal: No joint swelling, non tender FROZEN FOOD SELECTOR: Awake, and Ox3 Wound: Foot with description [...] No tendon tear or tenosynovitis is seen. MPH/[employer] Workstation ID: [id number] MR Foot Right With And Without Contrast Final Result 1. Prior forefoot resection. Cellulitis of the surgical stump is seen associated with small ulceration. 2. No abscess. 3. No MR signs of osteomyelitis. 4. Jpst-fu-zysvxfev mid/hindfoot osteoarthritis. 5. Remote sprains of the ATFL and deep fibers of the deltoid ligament, as above. MPH/[employer] Workstation ID: [id number] XR Foot Left 3+ [...] Arias MD - 2020 11:19 AM EST [facility] Medicine Inpatient H&P 2020 Chuyita Arias MD [facility] Patient: More Kingsley Jr. Date of : 1965 (55 y.o.) PCP: Cheng Staples, SERVICE DESK ANALYST Assessment More Kingsley is a 54 y.o. [...] More Kingsley Jr. Admit Date: MR #: [id number] : 1965 Physicians: Cheng Staples CNP (Family); No ref. provider found (Referring) Assessment: Patient with 1. Left foot abscess 2. Suspicion for osteomyelitis 3. Uncontrolled diabetes. Plan. Continue patient on current therapyn. Continue patient on IV cefazolin. I reviewed labs, including cultures, with MSSA, and be strep. I appreciate flask carrier evaluation. Patient needs incision and drainage of left foot abscess I reviewed MRI of the foot, with Extensive cellulitis, and concern for septic arthroplathy and osteomyelitis of the left foot Dressing according to flask carrier recommendation Endocrinology evaluation for adequate blood sugar [...] 0-30 Units, Subcutaneous, Before dinner, Jack Coffey SERVICE DESK ANALYST, 3 Units at 11/09/20 1826 ipratropium-albuteroL (DUO-NEB) [...] (NS), 0-150 mL/hr, Intravenous, PRN, Tanja Whitmore, [facility],PharmD PMH/PSH/SH/ reviewed, no change : Review of [...] excoriations Musculoskeletal: No joint swelling, non tender FROZEN FOOD SELECTOR: Awake, and Ox3 Wound: Foot with description [...] No tendon tear or tenosynovitis is seen. [employer] Workstation ID: [id number] MR Foot Right With And Without Contrast Final Result 1. Prior forefoot resection. Cellulitis of the surgical stump is seen associated with small ulceration. 2. No abscess. 3. No MR signs of osteomyelitis. 4. Akwg-lw-mcenouid mid/hindfoot osteoarthritis. 5. Remote sprains of the ATFL and deep fibers of the deltoid ligament, as above. [employer] Workstation ID: [id number] XR Foot Left 3+ [...] meaning can be extrapolated by contextual derivation. Leanne Jewell DPM - 11/09/2020 6:13 PM EST Progress Inpatient Follow-up 11/09/2020 Leanne Cherry DPM [facility] Patient: More Kingsley Jr. Date of [...] calf pain. Laboratory and Additional Data Reviewed: Reviewed:[id number]} * Chuyita Arias MD - 11/09/2020 11:50 AM EST Hospital Medicine Inpatient H&P 11/09/2020 Chuyita Arias MD [facility] Patient: More Kingsley Jr. Date of : 1965 (54 y.o.) PCP: Cheng Staples CNP Assessment More Kingsley is a 54 y.o. [...] Kingsley Jr. Admit Date: 11/05/2020 MR #: [id number] : 1965 Current location: [facility] Physicians: Cheng Staples CNP (Family); Dr. Pinedo [...] you. Electronically signed by Olga Wheeler APRN-ROSALIA 208:30 AM Olga Wheeler CNP * Marcella Bell MD - 11/08/2020 6:30 PM EST Patient Name: More Kingsley Jr. Admit Date: MR #: [id number] : 1965 Physicians: Cheng Staples CNP (Family); No ref. provider found (Referring) Assessment: Patient with 1. Left foot abscess 2. Suspicion for osteomyelitis 3. Uncontrolled diabetes. Plan. Continue patient on current therapy Okay to DC IV vancomycin Okay to DC IV Zosyn. Start patient on IV cefazolin. I reviewed labs, including cultures, with MSSA, and be strep. I appreciate flask carrier evaluation. Patient needs incision and drainage of left foot abscess I reviewed MRI of the foot, with Extensive cellulitis, and concern for septic arthroplathy and osteomyelitis of the left foot Dressing according to flask carrier recommendation Endocrinology evaluation for adequate blood sugar [...] (NS), 0-150 mL/hr, Intravenous, PRN, Tanja Whitmore, [facility],PharmD PMH/PSH/SH/ reviewed, no change : Review of [...] excoriations Musculoskeletal: No joint swelling, non tender FROZEN FOOD SELECTOR: Awake, and Ox3 Wound: Foot with description [...] No tendon tear or tenosynovitis is seen. [facility] Workstation ID: [id number] MR Foot Right With And Without Contrast Final Result 1. Prior forefoot resection. Cellulitis of the surgical stump is seen associated with small ulceration. 2. No abscess. 3. No MR signs of osteomyelitis. 4. Vokq-ph-ssjcagkn mid/hindfoot osteoarthritis. 5. Remote sprains of the ATFL and deep fibers of the deltoid ligament, as above. MPH/[employer] Workstation ID: [id number] Foot Left 3+ [...] (Principal) Secondary DM with DKA ([facility]) Relevant Medications insulin glargine (LANTUS) [...] Arias MD - 11/08/2020 12:13 PM EST [facility] Medicine Inpatient H&P 11/08/2020 Chuyita Arias MD [facility] Patient: More Kingsley Jr. Date of : 1965 (54 y.o.) PCP: Cheng Staples, SERVICE DESK ANALYST Assessment More Kingsley is a 54 y.o. [...] Kingsley Jr. Admit Date: 11/05/2020 MR #: [id number] : 1965 Current location: [facility] Physicians: Cheng Staples CNP (Family); Dr. Pinedo [...] Progress Inpatient Follow-up 11/08/2020 Ryan Conte DPM [facility] Patient: More Kingsley . Date of [...] calf pain. Laboratory and Additional Data Reviewed: Reviewed:[id number]} * Marcella Bell MD - 11/07/2020 7:38 PM EST Patient Name: More Kingsley Jr. Admit Date: MR #: [id number] : 1965 Physicians: Cheng Staples CNP (Family); No ref. provider found (Referring) Assessment: Patient with 1. Left foot abscess 2. Suspicion for osteomyelitis 3. Uncontrolled diabetes. Plan. Continue patient on current therapy Okay to DC IV vancomycin Okay to DC IV Zosyn. Start patient on IV cefazolin. I reviewed labs, including cultures, with MSSA, and be strep. I appreciate flask carrier evaluation. Patient needs incision and drainage of left foot abscess I reviewed MRI of the foot, with Extensive cellulitis, and concern for septic arthroplathy and osteomyelitis of the left foot Dressing according to flask carrier recommendation Endocrinology evaluation for adequate blood sugar [...] excoriations Musculoskeletal: No joint swelling, non tender FROZEN FOOD SELECTOR: Awake, and Ox3 Wound: Foot with description [...] 3. No MR signs of osteomyelitis. 4. Ttmh-mq-jusoceqv mid/hindfoot osteoarthritis. 5. Remote sprains of the [...] Inpatient Progress Note 11/07/2020 Leanne Cherry DPM [facility] Patient: More Kingsley Jr. Date of [...] Farley MD - 11/07/2020 11:01 AM EST [facility] Medicine Inpatient H&P 11/07/2020 Jean Farley MD [facility] Patient: More Kingsley Jr. Date of : 1965 (54 y.o.) PCP: Cheng Staples, SERVICE DESK ANALYST Assessment More Kingsley is a 54 y.o. [...] Kingsley Jr. Admit Date: 11/05/2020 MR #: [id number] : 1965 Current location: [facility] Physicians: Cheng Staples CNP (Family); Dr. Pinedo [...] you. Marvel Mcmillan MD * Rafat Miller, [facility],PharmD - 11/07/2020 8:06 AM EST PHARMACOTHERAPY NOTE: [...] 11/05/20 105 kg (231 lb 7.7 oz) Bishop body weight: 73 kg (160 lb 15 [...] seen Pharmacist: Rafat Miller RPh,PharmD Contact Number: [phone] * Jean Farley MD - 11/06/2020 9:18 AM EST [facility] Medicine Inpatient H&P 11/06/2020 Jean Farley MD [facility] Patient: More Kingsley Date of : 1965 (54 y.o.) PCP: Cheng Staples, SERVICE DESK ANALYST Assessment More Kingsley is a 54 y.o. [...] Results from last 7 days Lab Units 11/06/2048 11/05/201935 WBC K/mcL 15.27* 15.85* HGB g/dL [...] IMAGING: Reviewed 9:19 AM * Jose Read RPh,PharmD - 11/05/2020 8:47 PM EST PHARMACOTHERAPY NOTE: [...] 11/05/20 105 kg (231 lb 7.7 oz) Bishop body weight: 73 kg (160 lb 15 [...] pending Pharmacist: Jose Read RPh,PharmD Contact Number: [phone] documented in this encounter* Phu Buck RN - 11/20/2020 8:44 AM EST 11/20/2020 Call from Frances in [facility] this am confirming that pt is out of service area for [facility] andPharmacy. This RN had notified CM team of same on 11/19. Patient lives in [place], [place] so CM sendingreferral to [place]. [facility] and IV Infusion: Pt lives outside of the [facility] area for both Home Health and Pharmacy. documented in this encounter* Monica Jalloh RN - 12/19/2020 2:30 PM EST Nurse wore gloves and mask while taking care of patient. Patient wearing mask at all times while staff in the room. * Marcella Bell MD - 12/19/2020 2:21 PM EST Patient Name: More Kingsley Jr. Admit Date: MR #: [id number] : 1965 Physicians: Cheng Staples CNP (Family); [...] MSSA, and be strep. Dressing according to flask carrier recommendation Endocrinology evaluation for adequate blood sugar [...] cultures, bone culture with no growth. Follow-up flask carrier. I reviewed CBC, and C-reactive protein with 10.9 kidneys BUN and creatinine 9 and 0.72 Follow-up in 3 weeks. Okay with surgical shoe. Subjective: Patient is being reevaluated again today, he was followed in [facility] in the month of October 2020, at that time he had presented with left foot swelling and redness and alsowith some draining pus. He was evaluated and found with abscess of the left foot, and osteomyelitis. Patient then had flask carrier debridement and drainage. Wound culture then had [...] excoriations Musculoskeletal: No joint swelling, non tender FROZEN FOOD SELECTOR: Awake, and Ox3 PICC line in place. [...] and PT pulses nonpalpable secondary to edema. UNDERWRITING CONSULTANT is brisk to distal digits. Gross sensation [...] More Kingsley Jr. Admit Date: MR #: [id number] : 1965 Physicians: Cheng Staples CNP (Family); No ref. provider found (Referring) Assessment: Patient with 1. Left foot abscess, with MSSA 2. Osteomyelitis with MSSA 3. Uncontrolled diabetes. 4. Abdominal pain. 5. Constipation. Plan. Continue patient on current therapy. Status post IV cefazolin. Had antibiotics for more than 8 weeks. I reviewed labs, including cultures, with MSSA, and be strep. Dressing according to flask carrier recommendation Endocrinology evaluation for adequate blood sugar control We will continue to follow with you. Status post debridement. Reviewed previous bone cultures with MSSA. I reviewed labs. I reviewed CT scan of the abdomen and pelvis, with moderate large amount of retained stool in the proximal colon. Status post incision and drainage of the left ankle foot. Follow-up flask carrier. Follow-up in 3 to 4 weeks. I reviewed bone biopsy on december with no growth I discussed with the flask carrier on management plan. Dr. Cherry, scheduling for reconstruction of the left foot. Okay to switch to p.o. Keflex for the next 2 weeks. Okay to DC PICC line. Follow-up x-ray of the left foot. Subjective: Patient is being reevaluated again today, he was followed in [facility] in the month of October 2020, at that time he had presented with left foot swelling and redness and alsowith some draining pus. He was evaluated and found with abscess of the left foot, and osteomyelitis. Patient then had flask carrier debridement and drainage. Wound culture then had [...] the left Charcot foot area by the flask carrier. He is not complaining of any new [...] excoriations Musculoskeletal: No joint swelling, non tender FROZEN FOOD SELECTOR: Awake, and Ox3 PICC line in place. [...] and PT pulses nonpalpable secondary to edema. UNDERWRITING CONSULTANT is brisk to distal digits. Gross sensation [...] with transportation. Patient has been driving from [facility], which takes him 1.5 hours. [...] More Kingsley Jr. Admit Date: MR #: [id number] : 1965 Physicians: Cheng Staples CNP (Family); [...] on tissue exam 11/18/20 Dressing according to flask carrier recommendation - currently with VAC dressing Status post debridement, I&D Follow up bone biopsy and wound culture 12/27/20 with no growth Continue working on blood sugar control (last A1c 8.2) Technical Assistant Dr. Cherry planning reconstruction of the left [...] wound clinic today, also coming to see flask carrier. There is someincreased swelling to the base [...] excoriations Musculoskeletal: No joint swelling, non tender FROZEN FOOD SELECTOR: Awake, and Ox3 Wound: 3/5 . ---> [...] More Kingsley Jr. Admit Date: MR #: [id number] : 1965 Physicians: Cheng Staples CNP (Family); [...] drainage of the left ankle foot. Follow-up flask carrier. Follow-up in 3 to 4 weeks. I [...] was noted. Patient scheduled to see the flask carrier Dr. Waller on second opinion, suggest been recommended for constructive foot surgery.. Subjective: Patient is being reevaluated again today, he was followed in [facility] in the month of October 2020, at that time he had presented with left foot swelling and redness and alsowith some draining pus. He was evaluated and found with abscess of the left foot, and osteomyelitis. Patient then had flask carrier debridement and drainage. Wound culture then had [...] the left Charcot foot area by the flask carrier. He is not complaining of any new [...] excoriations Musculoskeletal: No joint swelling, non tender FROZEN FOOD SELECTOR: Awake, and Ox3 Off PICC line Wound: [...] both eyes, with long- term current use ofinsulin, macular edema presence unspecified, unspecified proliferative retinopathy [...] aureus in conditions classified elsewhere and of unspecifiedsite Diagnosis Foot abscess, left- Primary Cellulitis and abscess of foot, except toes Instructions * Patient Instructions* Mnoica Jalloh RN - 01/09/2021 3:37 PM EST [...] Chief Complaint 6 week follow up NAUSEA/VOMITING NAUSEA/VOMITINGReason for VisitNausea and vomiting Chief Complaint FOLLOW UP EGD R11.2Reason for VisitNausea and vomiting Chief Complaint FOLLOW UP EGD R11.2 R11.2Reason for VisitNausea and vomiting Chief Complaint Admit Date Ref by Nii right lower extremity PVD June 28, 2025 9:55am Chief Complaint Admit Date Ref by Nii right lower extremity PVD June 28, 2025 9:55am I73.9, ADDED ON 06/28/25 11:30A June 11:23am Reason for Visit Admit Date Diabetic ulcer of right foot June 28, 2025 9:55am 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 June 28, 2025 9:55am PAD (peripheral artery disease) June 282024 9:55am Chief Complaint Admit Date Ref by [place], right lower extremity PVD June 28, 2025 [...] Healing Diabetic Ulcer July 16, 2025 12:00am I65.August 22, 2025 8: 16am Chief Complaint Admit Date Ref by Nii, right lower extremity PVD June 28, 2025 9:55am I73.9, ADDED ON 06/28/25 11:30A June 11:23am PAD w/ Non Healing Diabetic Ulcer July 09, 2025 8:15am PAD w/ Non Healing Diabetic Ulcer July 16, 2025 12:00am I65.August 22, 2025 8: 16am To go over CT Scan; CT Scan done at [facility] September 12, 2025 10:38am Additional Source Comments (unrecognized sect ion and content) No Status Records FoundNo Status Records FoundNo Status Records FoundNo Status Records FoundNo Status Records FoundNo Status Records FoundNo Status Records FoundNo Status Records FoundNo Status Records FoundNo Status Records FoundNo Status Records FoundNo Status Records Found INFORMATION SOURCE (unrecogn ized section and content) DATE CREATED AUTHOR 01/10/2019 [facility] DATE CREATED AUTHOR AUTHOR'S ORGANIZ ATION 11/21/2020 [facility] DATE CREATED AUTHOR AUTHOR'S ORGANIZ ATION 02/07/2021 [facility] DATE CREATED AUTHOR AUTHOR'S ORGANIZ ATION 02/11/2021 [facility] DATE CREATED AUTHOR AUTHOR'S ORGANIZ ATION 04/04/2021 [facility] DATE CREATED AUTHOR AUTHOR'S ORGANIZ ATION 03/22/2023 [facility] DATE CREATED AUTHOR AUTHOR'S ORGANIZ ATION 03/13/2024 [facility] DATE CREATED AUTHOR AUTHOR'S ORGANIZ ATION 04/22/2025 [facility] DATE CREATED AUTHOR AUTHOR'S ORGANIZ ATION 05/20/2025 [facility] DATE CREATED AUTHOR AUTHOR'S ORGANIZ ATION 08/13/2025 [facility] DATE CREATED AUTHOR AUTHOR'S ORGANIZ ATION 08/27/2025 [facility] DATE CREATED AUTHOR AUTHOR'S ORGANIZ ATION 09/22/2025 [facility] Reason for Visit (unrecogniz ed section and content) ReasonCommentsWound CheckSpecialtyDiagnoses / ProceduresReferred By Contact Referred To ContactWound Care Diagnoses Visit for wound check Henry GRANT Martins-SERVICE DESK ANALYST [address] [place] [address] Phone: tel: fax: [facility] [address] [place] [address] Phone: tel: fax:[phone] Referral IDStatusReasonRenwick DateExpiration DateVisits RequestedVisits [id number] Review Specialty Services Required [id number]tgnomk / ProceduresReferred By ContactReferred To Contact Diagnoses Secondary DM with DKA (HCC) Left foot cellulitis; DKA ReasonCommentsCare Coordinator - Leon Yoon's office/request for office note ReasonCommentsCare CoordinationGastroparesis clinic: chart review; new patient callReasonCommentsWound CheckSpecialtyDiagnoses / ProceduresReferred By Contact Referred To ContactWound Care Diagnoses Visit for wound check Lakshmi Figueroa APRN-SERVICE DESK ANALYST [address] [place] [address] Phone: tel: fax: [facility] [address] [place] [address] Phone: tel: fax:[phone] Referral IDStatusasonRenwick DateExpiration DateVisits RequestedVisits [id number] Review Specialty Services Required [id number] CoordinationAppeal for GPOEM denialReason CommentsEstablish CareSpecialtyDiagnoses / ProceduresReferred By ContactReferred To ContactInternal Medicine Diagnoses Visit for wound check Hyperglycemia Lakshmi Figueroa, 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-SERVICE DESK ANALYST [address] [place] [address] Phone: tel: fax: Vahe Solares MD [address] [place] [address] Phone: tel: fax: Referral IDStatusReasonStart DateExpiration DateVisits RequestedVisits [id number] Review Specialty Services Required [id number] CheckSpecialtyDiagnoses / Procedures Referred By ContactReferred To ContactWound Care Diagnoses Visit for wound check Lakshmi Figueroa 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-SERVICE DESK ANALYST [address] [place] [address] Phone: tel: fax: [facility] [address] [place] [address] Phone: tel: fax: Referral IDStatusReasonStart DateExpiration DateVisits RequestedVisits [id number] Review Specialty Services Required [id number]wwzt-ktPrkj painReasonCommentsMed Change RequestReasonCommentsNew PatientSpecialtyDiagnoses / ProceduresReferred By ContactReferred To ContactGENERAL SURGERY Diagnoses Gastroparesis new gp consult/empties Procedures OFFICE/OUTPATIENT NEW HIGH MDM 60 MINUTES OFFICE/OUTPATIENT NEW MODERATE MDM 45 MINUTES OFFICE/OUTPATIENT NEW LOW MDM 30 MINUTES OFFICE/OUTPATIENT NEW SF MDM 15 MINUTES OFFICE/OUTPATIENT ESTABLISHED HIGH MDM 40 MIN NEW DDI PATIENT Tracy Yoon MD [address] [place] [address] Phone: tel: fax: Dolly Hyatt, PhD [address] [place] [address] Phone: tel: fax: Referral IDStatusReasonStart DateExpiration DateVisits RequestedVisits [id number] DateCommentsResults 05/22/2025ReasonCommentstransitonal care visitReasonOnset DateCommentsResults 07/17/20252131FjynsjWkxoeljwUrelbk-bnKvxgquMpdavljsSxdkqd-qgDijwmcxw/A1C/ Right foot wound Leanne Cherry DPM - 11/18/2020 12:30 PM EST H&P Notes (unrecognized sect ion and content) INTERVAL HISTORY AND PHYSICAL Patient Name: More Kingsley Jr. Admit Date: MR #: [id number] : 1965 The H&P has been reviewed and the patient has been examined. I concur with the findings of the H&P. There are no significant changes. It is appropriate to proceed with the planned procedure. Leanne Cherry DPM 11/18/2020 12:30 PM * Braeden Conte DPM - 11/17/2020 9:39 AM EST Progress Inpatient Follow-up 11/17/2020 Braeden Conte DPM [facility] Patient: More Kingsley JrFrankie Date of : 1965 (55 y.o.) PCP: [...] 33.21 kg/m Laboratory and Additional Data Reviewed: Reviewed:[id number]} * Flako Pinedo MD - 11/05/2020 8:29 PM EST [facility] Medicine Inpatient H&P 11/05/2020 Flako Pinedo MD [facility] Patient: More Kingsley Date of : 1965 (54 y.o.) PCP: Cheng Staples, SERVICE DESK ANALYST Assessment More Kingsley is a 54 y.o. [...] last 7 days Lab Units 11/05/20 1936 SODIUM mmol/L 130* POTASSIUM mmol/L 3.3* CHLORIDE mmol/L 97* BUN mg/dL 42* CREATININE mg/dL 1.82* GLUCOSE mg/dL 309* CALCIUM mg/dL 8.2* Results from last 7 days Lab Units 11/05/20 1936 WBC K/mcL 15.85* HGB g/dL 11.9* HCT % 37.7* PLT K/mcL 274 Results from last 7 days Lab Units 11/05/20 1936 TROPONIN I ng/L <15 Results from last 7 days Lab Units 11/05/20 1936 ALK PHOS U/L 95 BILIRUBIN TOTAL mg/dL 0.9 TOTAL PROTEIN g/dL 8.1* ALTR U/L 16 AST U/L 26 CULTURES: Reviewed 8:29 PM IMAGING: Reviewed 8:29 PM documented in this encounter Monica Jalloh RN - 11/21/2020 1:05 PM EST Consult Notes (unrecognized section and content) Learning Disabled Teacher went with Dr. Kumar, flask carrier, to patient's room . Dr. Kumar removed remainder of black foam from tunnel at 11 oclock. Learning Disabled Teacher requested and received order change to white foam over bone and in tunnel areas, then black foam and negative pressure increased to 150mm/hg. Wound dressed per orders with 3 pieces total white foam, two pieces black foam to top. Negative pressure maintained and patient tolerated well. Patient dressing was attached to home vac at this time. Paperwork signed forvac by patient. Learning Disabled Teacher educated patient on charging, what to bring to future wound care appointments for dressing changes and all questions answered. * Monica Jalloh RN - 11/21/2020 7:48 AM EST Learning Disabled Teacher in to see patient for wound vac dressing change. Learning Disabled Teacher removed intact vac dressing as described to development writer by Dr. Cherry. Learning Disabled Teacher removed one piece black foam from top of dressing. Learning Disabled Teacher removed one piece black foam packed from 9 oclock area over to undermining in 2-4 oclock area. Learning Disabled Teacher removed one piece black foam from 7 oclock area. There remains one piece black foam in 11 oclock area (toward medial ankle) that is adhered to tunneling and exposed bone and could not be removed intact. Learning Disabled Teacher placed ns moist gauze dressing temporarily until discusses with podiatry. * Rossana Caldwell RN - 11/19/2020 2:59 PM EST IV team consulted for PICC placement. Chart and history reviewed. PICC insertion explained to patient , agreed to procedure. Single lumen PICC inserted following [place] Protocol into cephalic vein. PICC trimmed at 41cm. External length at 3cm. Patient tolerated well. PICC okay to use as tip is confirmed in lower SVC per ECG technology- maximum P wave and absence of negative deflection. Invasive line Insertion Check list followed. Flushes easily with good blood return. RN notified OK to use. * Nia Ya RD - 11/16/2020 10:57 AM EST Associated Order(s): IP CONSULT TO DIETITIAN Nutrition Education: Gastroparesis MNT, Diabetes MNT (myplate) Pt/family education: Learner: patient Educated on: Gastroparesis, diabetes MNT, ONS to utilize at home Readiness: acceptance Method: explanation and handout Response: verbalizes understanding * Barbara Trevizo RN - 11/14/2020 3:26 PM EST The home vac has been approved thru [facility] when the time comes for discharge home from hospital.LPapstRN woundcare * Barbara Trevizo RN - 11/14/2020 2:51 PM EST Patient was seen today for a wound vac change to left anterior foot. The wound bed is pink with undermining present from 8-4. 1 piece of black foam was inserted into the undermining area. Some tendonis exposed. The dressing was bridged to anterior ankle. A total of 2 pieces of foam was used. Suction is set at 125mmhg continuous suction. We will return on Mon per protocol to change the vac dressing. I applied 4x4's and a kerlix dressing over the vac.Patient tolerated the procedure well. * Elise Schreiber OTR/Daryn - 11/11/2020 11:40 AM EST Occupational Therapy OCCUPATIONAL THERAPY EVALUATION NOTE Skilled [...] deficit. 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 The patient's education level is a lead retail sales associate, awareness of own capacity and performance is a lead retail sales associate to return to prior level of function. During the assessment, minimal to moderate modification of task was required and multiple treatmentoptions were identified in the plan of care. [...] foot unclear and OT to clarify with flask carrier post evaluation this date. Home Living Type of Home: House Home Layout: One level, Stairs to enter with rails Bathroom Shower/Tub: Tub/shower unit Bathroom Toilet: Standard(Low toilet per pt.) Home Equipment: (Crutches) Additional Comments: Pt prefers to be called Carlitos . Prior Level of Function Level of Henderson: Independent with ADLs and functional transfers Lives [...] of Occupational Therapy Plan of Care. * Jerome Land - 11/08/2020 3:13 PM EST Physical Therapy PHYSICAL THERAPY EVALUATION NOTE Dx: [...] HR) Prior Level of Function Level of [place]: Independent with ADLs and functional transfers Lives [...] of Physical Therapy Plan of Care. * Monica Jalloh RN - 11/08/2020 2:09 PM EST Learning Disabled Teacher in to see patient for wound vac [...] This area was not covered with drape onlythe kerlix used after vac to secure and protect dressing. Negative pressure maintained at 125 mm/Hg. Patient tolerated well. * Quita Bryan LISW - 11/08/2020 1:43 PM EST Associated Order(s): IP CONSULT TO CARE MANAGEMENT COMPLEX DISCHARGE Date: 11/08/2020 Time: 1:43 PM Patient Name: More Kingsley Jr. Date of : 1965 Sex: Male Consult received for wound vacuum placement. Initial assessment completed with patient in patient'sroom. Patient educated to professor of social work role. Patient reports that he resides at [...] Care Services: No Current Home Equipment: None * Marcella Bell MD - 11/06/2020 4:58 PM EST Patient Name: More Kingsley Jr. MR #: [id number] : 1965 Physicians: Cheng Staples CNP (Family); No ref. provider found (Referring) Chief complaint: More Kingsley Jr. is a 54 y.o. male presented with left lower extremity swellingand pain. History: I have reviewed the patient's past medical history, past surgical history, family history, social history. 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 Patient had presented on this visit with worsening history of left footswelling and pain and also with some feeling of weakness. He thought this may have been going on for a couple of days, did not know exactly when he started having some wound. He denied any history offever or chill, and also had denied any history of trauma. , had a x-ray of the foot that had shownno definite evidence of osteomyelitis. His evaluation currently [...] file Gets together: Not on file Attends faith service: Not on file Active member of [...] for abdominal distention, abdominal pain, constipation, diarrhea, nauseaand vomiting. Endocrine: Negative for polydipsia, polyphagia and [...] 15-20 maintain Follow-up labs, including cultures Follow-up flask carrier Patient needs incision and drainage of left foot abscess Consider MRI of the left foot Dressing according to flask carrier recommendation Endocrinology evaluation for adequate blood sugar [...] can be extrapolated by contextual derivation. * Brooklynn Carvajal RN - 11/06/2020 2:32 PM EST Associated Order(s): IP CONSULT TO METALLURGIST HELPER Met with pt for diabetes education. Pt [...] action of Novolog and Lantus. Advised him totalk with his PCP about his HS dose of Novolog, how he doses it and if he should be taking it due to his hypoglycemia. Discussed the importance of a regular feeding schedule, balancing CHO's at meals, an HS snack, exercise including options for chair exercises, good blood sugar control for healing p urposes, pt's A1C of 8.2% and goal, the importance of not going high but also not going low, treatment and prevention of hypoglycemia. Pt seems to have many barriers to making lifestyle changes and his story changes frequently. Denies questions. Handouts: Diabetes and You book A1C Target Levels * Blanca Miles, AUDI - 11/06/2020 12:52 PM EST Associated Order(s): IP CONSULT TO DIETITIAN Nutrition [...] help improve BG. When trying to discuss 15/15 rule with pt in order to treat lows, pt reports that for him, he needs more. Past Medical History: Diagnosis Date Diabetes mellitus, type 2 (HCC) Diabetic nephropathy (HCC) Diabetic neuropathy (HCC) Diabetic retinopathy (HCC) Hyperlipidemia Hypertension Nephropathy Height: 5' 10 Current weight: 105 kg (231 lb 7.7 oz) BMI Body mass index is 33.21 kg/m . - reflects obesity classI. Weight hx: Wt Readings from Last 5 Encounters: 11/05/20 105 kg (231 lb 7.7 oz) 11/05/20 105 kg (231 lb 7.7 oz) 11/05/20 103.4 kg (227 lb 15.3 oz) Current diet order: CCHO 60 gms/meal Recent intake: Fair appetite per pt.Current intake Likely meets estimated needs. Patient/family comments: Pt reports intermittent nausea at this time but not enough to feel like heis going to vomit. ROUTE JUMPER, pt reports eating 2 meals/day on average, often skipping breakfast and eating fast food at least once a day. He mentions often going to [employer] & ordering a double cheeseburger with a medium Bengali macias and medium diet soda. Occasional milk [...] pharmacokinetics Continuous Infusions: lactated Ringers 100 mL/hr (11/05/203) Estimated Energy Needs Total Energy Estimated Needs: 1950 kcals/day Method for Estimating Needs: MSJ x 1.3AF -500 kcals/day to promote 1# weight loss/week Total Protein Estimated Needs: 81-97 gms/day Method for Estimating Needs: 1.0-1.2 gms/kg adjusted BW Blanca Miles RDN, LD Office * Braeden Conte DPM - 11/06/2020 10:58 AM EST Podiatry Inpatient Consult 11/06/2020 Braeden Conte DPM [facility] Patient: More Kingsley Date of : [...] I was highly concerned of an abscess inhis left midfoot. After obtaining a consent I [...] the blade to remove all devitalized tissue full-thickness down to the subcutaneous tissue. Flushed the wound with saline culture was taking Xeroform and dry sterile dressing were applied. Await MRI resultsof both feet. I explained to patient that [...] the last 2 weeks. Patient is from [facility] where he was transferred down here to be evaluated and treated. Patient lost his right forefoot 3 years ago due to infection. 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 History of Present Illness: More Kingsley is a 54 y.o. male presenting from [facility] with complaint of left midfoot abscess [...] MPJ cheilectomy degenerative arthritis. patient has a rightforefoot amputation. Review of Systems: MuscSkel:No arthralgias All [...] over the first metatarsal phalangeal joint from aprevious surgery. The plantar aspect of the right [...] Data Reviewed: Reviewed 11/06/20 10:59 AM: Radiology * Jack Coffey CNP - 11/06/2020 10:00 AM EST Associated Order(s): IP CONSULT TO ENDOCRINOLOGY Patient ID: Patient Name: More Kingsley Admit Date: 11/05/2020 MR #: [id number] : 1965 Current location: [facility] Physicians: Cheng Staples CNP (Family); Dr. Pinedo [...] past surgicalhistory and problem list. Objective: BP 112/75 Pulse [...] to follow this patient with you. Jack Coffey, ROSALIA documented in this encounter Hospital Course - Palak Arora MD - 11/20/2020 10:56 AM EST Miscellaneous Notes (unrecog nized section and [...] 1 week post discharge with Dr. Cherry. * [facility] - Slyfarnaz Tricia, ROUTE JUMPER - 11/19/2020 9:16 AM EST PHYSICAL THERAPY VISIT VARIANCE NOTE Attempted to see patient at this time, but unable secondary to: PT Visit [facility]: Refused(stating moving well, does not need PT at this time). Will follow up as appropriate. * [facility] - Mauricio BrunnerMARIAH - 11/18/2020 4:10 PM EST OCCUPATIONAL THERAPY VISIT VARIANCE NOTE Attempted to see patient at this time, but unable secondary to: OT Visit [facility]: Patient Unavailable due to having L ankle I &D with wound vac placement . Will follow up as appropriate. * Brief Op Note - Leanne Cherry DPM - 11/18/2020 1:34 PM EST Brief Post Operative Note Patient Name: More Kingsley Jr. : 1965 (55 y.o.) Date of Service: 11/18/2020 CSN: [id number] Procedure(s): INCISION AND DRAINAGE FOOT/ANKLE with Application of Wound Vac Pre-Operative Diagnoses: * Abscess of left ankle Post-Operative Diagnoses: * Same as Pre-Op Diagnosis Surgeon(s) and Role: * Leanne Cherry DPM - Primary Anesthesiologist: Almas Gutierrez MD CRIME SCENE INVESTIGATOR: Kathrine Page CRNA Anesthesiologist [employer] Administrator: SUNDEEP Machado Procedures Tech: Kathrine Rice RN; Paola German RN Scrub [...] CULTURE, BONE ANAEROBIC CULTURE Leanne Cherry DPM 11/18/2020 1247 A : Left Foot Bone [...] 0 11/08/20 1350 Drainage Amount Small 11/18/20 08 Drainage Description Serosanguineous 11/18/20 08 Odor None 11/18/20 0800 Wound Bed Characteristics DIEGO (Unable to assess) 11/17/201999 Debi-wound Assessment DIEGO 11/17/20 0815 Treatments Not Applicable 11/15/202047 Hemostasis Not applicable 11/15/20 204 Cleansed Not Applicable 11/15/20 2048 Primary Dressing Iodoform 11/18/20 0800 Secondary Dressing Gauze roll 11/18/20 0800 Compression Dressing Not Applicable 11/15/20 2048 Wound 11/09/20 Foot (other distal) Anterior;Right (Active) Reassessment Unchd 11/18/20 1000 Dressing Status Clean;Dry;Intact 11/18/20 0800 Dressing Changed Changed 11/16/20 0506 Drainage Amount None 11/18/20 0800 Drainage Description DIEOG 11/17/20 0815 Odor None 11/18/20 0800 Wound Bed Characteristics [place] 11/17/20 0815 Debi-wound Assessment Brown;Scaly 11/16/20 0506 Treatments Not Applicable 11/16/20 0506 Hemostasis Not applicable 11/16/20 0506 Cleansed Sterile water 11/16/20 0506 Primary Dressing Other (Comment) 11/18/20 08 Secondary Dressing Gauze pad;Gauze roll 11/18/20 0800 Compression Dressing Not Applicable 11/18/20 0800 Wound 11/18/20 Surgical Wound Foot Left (Active) Leanne Cherry DPM 11/18/2020 1:34 PM * Plan of Care - Rafat Mehta RN - 11/16/2020 1:03 AM EST Wound VAC remains intact, IV atb. Problem: [...] Goal: Absence of falls Outcome: Partially Met * Plan of Care - Vanessa Archuleta RN - 11/12/2020 1:13 AM EST Problem: Actual or potential alteration in health [...] Goal: Absence of falls Outcome: Partially Met * Brief Op Note - Leanne Cherry DPM - 11/11/2020 5:16 PM EST Brief Post Operative Note Patient Name: oMre Kingsley Jr. : 1965 (55 y.o.) Date of Service: 11/11/2020 CSN: [id number] Procedure(s): DEBRIDEMENT AND DRESSING CHANGE APPLICATION WOUND VAC Pre-Operative Diagnoses: * Abscess, left foot Post-Operative Diagnoses: * Same as Pre-Op Diagnosis Surgeon(s) and Role: * Leanne Cherry DPM - Primary Anesthesiologist: Javi Barriga MD CRIME SCENE INVESTIGATOR: Jasmine Gauthier CRNA Anesthesiologist [employer] Administrator: SUNDEEP Machado Procedures Tech: Kathrine Rice RN; Evie Hunt RN Scrub [...] (Active) Leanne Cherry DPM 11/11/2020 5:16 PM * CDI Query - Evie Rueda - 11/07/2020 6:44 AM EST Noted documentation of fever, leukocytosis. Clinical Indicators: [...] Evie Rueda, TAMARAN, RN Clinical Documentation Improvement [facility] [phone] After business hours you may contact Arianna Hooks at [phone] (Weekdays until 10 PM and weekends 8 AM -10 PM) * Plan of Care - Lucrecia Reza, RN - 11/07/2020 3:33 AM EST Problem: Actual or potential alteration in health [...] rt: May 09, 2024 End: May 09, 2024ImaHilary Cross ProviderActiveStart: May 09, 2024 End: May 09, 2024 Team Status: Inactive Member Role Status Dates Cheng Staples Primary Care Provider Active Sta rt: June 06, 2024 End: June 06, 2024ImaHilary Cross ProviderActiveStart: June 06, 2024 End: June 06, 2024 Team Status: Active Member Role Status Dates Provider Conversion Attending Provider Active St art: November 25, 2023 Team Status: Inactive Member Role Status Dates Cheng Staples Primary Care Provider Active Sta rt: January 07, 2024 End: January 07Mariah Le ProviderActiveStart: January 07, 2024 End: January 07, 2024 Team Status: Inactive Member Role Status Dates Cheng Staples Primary Care Provider Active Sta rt: February 03, 2024 End: February 03, 2024ImaHilary Cross ProviderActiveStart: February 03, 2024 End: February 03, 2024 Team Status: Active Member Role Status Dates Cheng Staples Primary Care Provider Active Sta rt: February 03, 2024 Hilary Goodman Provider, Other ProviderActiveStart: February 03, 2024 Team MemberRelationshipSpecialtyStart DateEnd Date Jonny Zhu MD [address] [place] [phone] [facility]/24 Cheng Staples NP [address] [place] [phone] [facility]07/23/23 Cheng Staples NP [address] [place] [address] [facility]01/06/24 Team Status: Inactive Member Role Status Dates [...] rt: June 12, 2024 End: June 12, 2024Imad ZOHAIB Yoonttshahab ProviderActiveStart: June 12, 2024 End: June 12, 2024Team MemberRelationshipSpecialtyStart DateEnd Date Cheng Staples APRN-SERVICE DESK ANALYST PCP - GeneralNurse Practitioner03/05/25Team MemberRelationshipSpecialtyStart Date End Date Cheng Staples APRN-CNP PCP - GeneralNurse Practitioner03/05/25Team MemberRelationshipSpecialtyStart Date End Date Art Freeman DO [address] [facility] [place] [address] PCP - GeneralFamily Medicine04/26/25Team MemberRelationshipSpecialtyStart DateEnd Date Cheng Staples, 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-SERVICE DESK ANALYST PCP - GeneralNurse Practitioner03/05/25Team MemberRelationshipSpecialtyStart Date End Date Art Freeman DO [address] [facility], [address] [place] [address] [facility] - [facility]04/26/25Team MemberRelationshipSpecialtyStart DateEnd Date Art Freeman DO [address] [facility], [facility] [address] [place] [address] PCP - Generalmily Medicine04/26/25Team MemberRelationshipSpecialtyStart DateEnd Date Art Freeman DO [address] [facility], [facility] [address] [place] [address] PCP - Generalmily Medicine04/26/25Team MemberRelationshipSpecialtyStart DateEnd Date Art Freeman DO [address] [facility] [address] [place] [address] PCP - Generalmily Medicine04/26/25 Team Status: Inactive Member Role Status Dates Cheng Staples Primary Care Provider Active Sta rt: June 28, 2025 End: June 28, 2025Cathy Ramirez WEIGHT CLERK-CAttending ProviderActiveStart: June 28, 2025 End: June 28, 2025 Team Status: Active Member Role Status Dates Cheng Staples Primary Care Provider Active Sta rt: June 28, 2025 Hilary Winston ProviderActiveStart: June 28, 2025 Team Status: Inactive Member Role Status Dates Cheng Staples Primary Care Provider Active Sta rt: June 28, 2025 End: June 28, 2025Mattherlinda Quintanilla MDAttending ProviderActiveStart: June 28, 2025 End: June 28, 2025Team MemberRelationshipSpecialtyStart DateEnd Date Art Freeman DO [address] [facility], [facility] [address] [place] [address] PCP - GeneralFamily Medicine04/26/25Team MemberRelationshipSpecialtyStart DateEnd Date Art Freeman DO [address] [facility], [place] [address] PCP - GeneralFamily Medicine04/26/25 Team Status: Active Member Role Status Dates NON STAFF Primary Care Provider Active Team Status: Inactive Member Role Status Dates Chan Quintanilla MD Attending Provider Active Start: July 09, 2025 End: July 09, 2025NON STAFFPrimary Care ProviderActiveStart: July 09, 2025 End: July 09, 2025Team MemberRelationshipSpecialtyStart DateEnd Date Art Freeman DO [address] [facility] [address] [place] [address] PCP - GeneralFamily Medicine04/26/25Team MemberRelationshipSpecialtyStart DateEnd Date Art Freeman DO [address] [facility] [address] [place] [address] PCP - GeneralFamily Medicine04/26/25Team MemberRelationshipSpecialtyStart DateEnd Date Art Freeman DO [address] [facility] [address] [place] [address] PCP - [facility] Medicine04/26/25Team MemberRelationshipSpecialtyStart DateEnd Date Art Freeman DO [address] [facility], [place] [address] PCP - Man [facility]04/26/25Team MemberRelationshipSpecialtyStart DateEnd Date Art Freeman, [address] [facility], [place] [address] PCP - Man [facility]04/26/25 Team Status: Inactive Member Role Status Dates Cheng Staples NP-C Primary Care Provider Active Start: June 28, 2025 End: June 28, 2025Maikel Pardotenmilton ProviderActiveStart: June 28, 2025 End: June 28, 2025 Team Status: Inactive Member Role Status Dates Cheng Staples NP-Kingsley Primary Care Provider Active Start: June 28, 2025 End: June 28, 2025Mattherlinda Quintanilla MDAttending ProviderActiveStart: June 28, 2025 End: June 28, 2025 Team Status: Active Member Role Status Dates Chan Quintanilla MD Attending Provider Active Start: July 16, 2025 Chan Quintanilla MDOther ProviderActiveStart: July 16, 2025 NON STAFFPrimary Care ProviderActiveStart: July 16, 2025 Team Status: Inactive Member Role Status Dates ALISHA Pardo Attending Provider Active Start: August 22, 2025 End: August 22, 2025NON STAFFPrimary Care ProviderActiveStart: August 22, 2025 End: August 22, 2025Team MemberRelationshipSpecialtyStart DateEnd Date Art Freeman DO [address] [facility] [address] [place] [address] [facility] - [facility]04/26/25 Team Status: Active Member Role/Relationship Status Dates NON STAFF Primary Care Provider Active Team Status: Inactive Member Role/Relationship Status Dates Cheng Staples , WEIGHT CLERK-C Primary Care Provider Active Start: June 28, 2025 End: June 28, 2025Rory Pardo ProviderActiveStart: June 28, 2025 End: June 28, 2025 Team Status: Inactive Member Role/Relationship Status Dates Cheng Staples WEIGHT CLERK-C Primary Care Provider Active Start: June 28, 2025 End: June 28, 2025MaHilary Garcia ProviderActiveStart: June 28, 2025 End: June 28, 2025 Team Status: Inactive Member Role/Relationship Status Dates Chan Quintanilla MD Attending Provider Active Start: July 09, 2025 End: July 09, 2025NON STAFFPrimary Care ProviderActiveStart: July 09, 2025 End: July 09, 2025 Team Status: Active Member Role/Relationship Status Dates Chan Quintanilla MD Attending Provider Active Start: July 16, 2025 Chan Quintanilla MDOther ProviderActiveStart: July 16, 2025 NON STAFFPrimary Care ProviderActiveStart: July 16, 2025 Team Status: Inactive Member Role/Relationship Status Dates Cathy Leggett NP-C Attending Provider Active Start: August 22, 2025 End: August 22, 2025NON STAFFPrimary Care ProviderActiveStart: August 22, 2025 End: August 22, 2025 Team Status: Inactive Member Role/Relationship Status Dates NON STAFF Primary Care Provider Active Start: September 12, 2025 End: September 12, 2025MaHilary Garcia ProviderActiveStart: September 12, 2025 End: September 12, 2025Team MemberRelationshipSpecialtyStart DateEnd Date Art Freeman DO [address] [facility] [address] [place] [address] PCP - [facility]04/26/25 Goals (unrecognized section and content) Goals may be documented in a n alternate section Source Comments (unrecognize d section and content) In the event this informatio n is protected by the Federal Confidentiality of Alcohol and Drug Abuse Patient Records regulations: The Federal rules restrict any use of the information to criminally investigate or prosecute any alcohol or drug abuse patient.[facility] HospitalIn the event this information is protected by the Federal Confidentiality of Alcohol and Drug Abuse Patient Records regulations: The Federal rules restrict any use of the information to criminally investigate or prosecute any alcohol or drug abuse patient.[facility] HospitalIn the event this information is protected by the Federal Confidentiality of Alcohol and Drug Abuse Patient Records regulations: The Federal rules restrict any use of the information to criminally investigate or prosecute any alcohol or drug abuse patient.[facility] HospitalIn the event this information is protected by the Federal Confidentiality of Alcohol and Drug Abuse Patient Records regulations: The Federal rules restrict any use of the information to criminally investigate or prosecute any alcohol or drug abuse patient.[facility] HospitalIn the event this information is protected by the Federal Confidentiality of Alcohol and Drug Abuse Patient Records regulations: The Federal rules restrict any use of the information to criminally investigate or prosecute any alcohol or drug abuse patient.[facility] HospitalIn the event this information is protected by the Federal Confidentiality of Alcohol and Drug Abuse Patient Records regulations: The Federal rules restrict any use of the information to criminally investigate or prosecute any alcohol or drug abuse patient.[facility] HospitalIn the event this information is protected by the Federal Confidentiality of Alcohol and Drug Abuse Patient Records regulations: The Federal rules restrict any use of the information to criminally investigate or prosecute any alcohol or drug abuse patient.[facility] FOR RECORDS PERTAINING TO PATIENTS WHO [...] BE BASED ON THE PRIMARY CLINICAL RECORDS. [employer] [facility]. provides no warranty or guarantee of the accuracy or completeness of information in this document.
== END 2025-09-28 10:02 | disposition home or self-care (01) ==
LOC: WC 10:01
PROVIDERS: PCP Family Medicine; Visit Provider Physician Assistant
DX: E11.621 Type 2 diabetes mellitus with foot ulcer (principal); L97.415 Non-pressure chronic ulcer of right heel and midfoot with muscle involvement without evidence of necrosis
CPT/HCPCS: 29445

== ENCOUNTER 2025-10-02 10:44 | Outpatient (OUT) | payer MEDICARE, SELFPAY ==
--- OUTSIDE RECORDS SUMMARY | 2025-09-21 07:30 | XMS_ITS | Encounter Summary ---
Author Organization [facility] tem Address [facility] [id number] [address] [place] [address] Care Team Providers Care Emergency Planner Name Role Phone Jessee Molina DO Primary Care Provider [phone] Reason for Visit * ReasonCommentsFollow-upDiabetes/A1C/ Right foot wound Encounter Details DateTypeDepartmentCare Team (Latest Contact Info)Lcphmhveepi29/31/2025 8:30 AM EDTClinical Support [facility] [address] [place] [address] [place] [address] Jessee Molina DO [address] [facility], [address], [place] [address] Gastroesophageal reflux disease, unspecified whether esophagitis present (Primary Dx); Type 2 diabetes mellitus with foot ulcer, with long-term current use of insulin ([facility]); Benign essential HTN; Chronic midline low back pain without sciatica; Mixed hyperlipidemia due to type 2 diabetes mellitus ([facility]) Social History Tobacco UseTypesPacks/DayYears UsedDateSmoking Tobacco: NeverSmokeless Tobacco: NeverAlcohol UseStandard Drinks/WeekCommentsNot Currently0 (1 standard drink = 0.6 oz pure alcohol)quit 2006Social Connection and Isolation PanelAnswerDate RecordedIn a typical week, how many times do you talk on the phone with family, friends, or neighbors?Twice a week02/07/2021How often do you get together with friends or relatives?Never02/07/2021How often do you attend hoahaoism or gnosticism services?Never03/19/2021Do you belong to any clubs or organizations such as hoahaoism groups, unions, fraternal or athletic groups, or school groups?No 02/07/2021How often do you attend meetings of the clubs or organizations you belong to?Never02/07/2021re you , , , , never , or living with a partner?Abcautox31/19/2021Overall Financial Resource Strain (CARDIA)AnswerDate RecordedHow hard is it for you to pay for the very basics like food, housing, medical care, and heating?Not very hard02/07/2021 PHQ-2AnswerDate RecordedTotal Ovpvt304[facility] [place] of Occupational Health - Occupational Stress QuestionnaireAnswerDate RecordedDo you feel stress - tense, restless, nervous, or anxious, or unable to sleep at night because your mind is troubled all the time - these days?To some saevnl4002/07/2021xercise Vital SignAnswerDate RecordedOn average, how many days [...] on one occasion?Never09/21/2025hildcareAnswerDate 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 [...] InformationValueDate RecordedSex Assigned at BirthNot on fileLegal AxcWhtb3706/27/2015 11:23 AM EDTGender IdentityNot on fileSexual OrientationNot on filedocumented as of this encounter Last Filed Vital Signs Vital SignReadingTime TakenCommentsBlood Qvlnnpcv057/7409/21/2025 8:28 AM EDT Pousd772809/21/2025 8:28 AM VEOIbnqgkwpktf51.5 ??C (97.7 ??F)09/21/2025 8:28 AM EDTRespiratory Rate--Oxygen Mnhtfurjka39%09/21/2025 8:28 AM EDTInhaled Oxygen Concentration--Pszwuy085.9 kg (257 lb 12.8 oz)09/21/2025 8:28 AM EDTHeight--Body Mass Index38.6206 2:12 PM EDTdocumented in this encounter Functional Status * AUDIT-C ScoreAnswerDate of PyridubpyzIrygpb457/31/2025 8:28 AM Danielle Lopez CNA * QuestionAnswerDate [...] original note were not included. [facility] [address] [place] [address] Patient: Rashel Rodriguez Jr. Date of : [...] poor repair Diabetes mellitus type 2, controlled ([facility]) 1999 Hyperlipidemia Hypertension PICC (peripherally inserted central catheter) flush 02/2021 Visual impairment glasses Past Surgical History: Procedure Laterality Date AMPUTATION SYMES LOWER EXTREMITY Left 04/18/2021 Performed by Ghulam Brooke DPM at [facility] AMPUTATION TOEMID FOOT OSTEOTOMY ACHILLES TENOTOMY Left 02/07/2021 Performed by Ghulam Brooke DPM at [facility] ASPIRATION BONE MARROW BIOPSY BONE MARROW (BONE BIOPSY) Left 03/24/2021 Performed by Ghulam Brooke DPM at [facility] CLOSURE WOUND LOWER EXTREMITY (DELAYED PRIMARY CLOSURE) Left 03/24/2021 Performed by Ghulam Brooke DPM at [facility] DEBRIDEMENT FOOT/ANKLE Left 02/07/2021 Performed by Ghulam Brooke DPM at [facility] EXOSTECTOMY FOOT Right 09/01/2021 Performed by Ghulam Brooke DPM at [facility] PHACO KELMAN I IMPLANT INTRAOCULAR LENS Right 12/28/2019 Performed by Debra Trejo MD at [facility] REMOVAL HARDWARE FOOT/TOE, AND REMOVAL ANTIBIOTIC SPACER Left 03/24/2021 Performed by Ghulam Brooke DPM at [facility] TONSILLECTOMY as child Family History [...] and 11 to the basement. Worked at [employer]. Now disabled Social Drivers of Health Financial Resource Strain: Low Risk (01/06/2024) Received from [facility] Healthcare Overall Financial Resource Strain (CARDIA) [...] Needs: Unmet Transportation Needs (01/06/2024) Received from [facility] - Transportation Lack of Transportation (Medical): Yes Lack of Transportation (Non-Medical): Yes Physical Activity: Inactive (01/06/2024) Received from [facility] Exercise Vital Sign On average, how many days per week do you engage in moderate to strenuous exercise (like a brisk walk)?: 0 days On average, how many minutes do you engage in exercise at this level?: 0 min Stress: Stress Concern Present (01/06/2024) Received from [facility] [place] of Occupational Health - Occupational Stress Questionnaire Feeling of Stress : Very much Social Connections: Socially Isolated (01/06/2024) Received from [facility] Social Connection and Isolation Panel In a typical week, how many times do you talk on the phone with family, friends, or neighbors?: Never How often do you get together with friends or relatives?: Never How often do you attend hoahaoism or gnosticism services?: Never Do you belong to any clubs or organizations such as hoahaoism groups, unions, fraternal or athletic groups, or school groups?: Yes How often do you attend meetings of the clubs or organizations you belong to?: Never Are you , , , , never , or living with a partner?: Interpersonal Safety: Unknown (01/13/2024) Received from [facility] [place] Safety & Environment Fear of Current or Ex-Partner: Not on file Emotionally Abused: Not on file Physically Abused: Not on file Sexually Abused: Not on file Physically or Sexually Abused: Not on file Housing Instability: Low Risk (01/06/2024) Received from [facility] Housing Stability Vital Sign Unable to Pay [...] HISTORY: Right foot ulcer, with unspecified severity ([facility]). COMPARISON: 03/04/2025 IMPRESSION: Unchanged indication about the [...] ulcer, with long-term current use of insulin ([facility]) - POCT Hemoglobin A1c - insulin glargine [...] hyperlipidemia due to type 2 diabetes mellitus ([facility]) No problem-specific Assessment & Plan notes found [...] Plan of Treatment DateTypeDepartmentCare Team (Latest Contact Info)Ctttmdznaed75/02/2026 11:00 AM ESTClinical Support [facility] [address] [place] [phone] Jessee Molina DO [address] [place] [address], [facility], [place] [address] documented as of this encounter Goals GoalPatient Goal TypeAssociated ProblemsRecent ProgressPatient-Stated?Author <enter goal here> Yulia Leon, ISAIAS Note: Evaluation of progress towards goal: de retirement facility documented as of this encounter Procedures Procedure NamePriorityDate/TimeAssociated DiagnosisCommentsPOCT HEMOGLOBIN A1C Pvwiqgx0809/21/2025 8:50 AM EDT Type 2 diabetes mellitus with foot ulcer, with long-term current use of insulin ([facility]) documented in this encounter Results * (ABNORMAL) POCT Hemoglobin A1c (09/21/2025 8:50 AM EDT)ComponentValueRef Range Test MethodAnalysis TimePerformed AtPathologist SignatureExternal Poct Hgb A1C 9.0(A)4 - 7 %MANUALLY TRANSCRIBED RESULTSADA Target < 8YesMANUALLY TRANSCRIBED RESULTSSpecimen (Source)Anatomical Location / LateralityCollection Method / VolumeCollection TimeReceived AjytOjwke13/31/2025 8:50 AM EDT Narrative Authorizing ProviderResult TypeResult StatusMicfelicia Molina DOPOINT OF CARE TEST ORDERABLESFinal ResultPerforming OrganizationAddressCity/State/ZIP CodePhone Number MANUALLY TRANSCRIBED RESULTS documented in this encounter Visit Diagnoses Diagnosis Gastroesophageal reflux disease, unspecified whether esophagitis present- Primary Type 2 diabetes mellitus with foot ulcer, with long-term current use of insulin ([facility]) Benign essential HTN Chronic midline low back pain without sciatica Mixed hyperlipidemia due to type 2 diabetes mellitus ([facility]) documented in this encounter Additional Health Concerns AssessmentNoted TimePHQ-9 Depression Total Score: 8:28 AM EDT documented as of this encounter Care Teams Team MemberRelationshipSpecialtyStart DateEnd Date Jessee Molina DO [address] [place] [address], [place] [address] PCP - GeneralFamily Medicine04/26/25documented as of this encounter
--- OUTSIDE RECORDS SUMMARY | 2025-10-02 10:46 | XMS_ITS | Clinical Summary ---
Author Organization [facility] Address [address] [place] [address] Care Team Providers Care Swing Saw Operator Name Role Phone Unavailable Primary Care Provider Unavailabl e Allergies Active AllergyReactionsCriticalityNoted DateCommentsVenom-Honey BeeAnaphylaxis, Other: See Comments,DegiutfqCbnoay61/15/2020 Local swelling Medications MedicationSigDispense QuantityRefillsLast FilledStart DateEnd [...] DateHistory of transmetatarsal amputation of right foot5Anxiety, mcofjootwur70/15/2024PAD (peripheral artery disease) 01/06/2024Obesity (BMI 30-39.9)11/02/2023astroesophageal reflux disease 10/27/2023 Overview (04/24/2025): EGD 02/03/24 Dttoggajmiez61/06/2023Nausea and ocabdqut87/24/8909Ebvkzntwjuyhhy47/30/2021Type 2 diabetes mellitus with retinopathy of both eyes, with long-term current use of uiahdki7811/06/2020 Social History Tobacco UseTypesPacks/DayYears UsedDateSmoking Tobacco: NeverPassive Smoke Exposure: NeverSmokeless Tobacco: Never Tobacco Cessation:Counseling Given: Not Answered Area Deprivation IndexAnswerDate RecordedNational Score (1-100), lower number is lower ogyc529310/24/2024State Score (1-10), lower number is lower fehh22412/25/2023 Data from: https://www.neighborhoodatlas.medicine.[facility].edu/. Last address used for v[address] [facility]10/24/2024Sex and Gender InformationValueDate RecordedSex Assigned at BirthNot on fileLegal VujSbhu3808/07/2021 3:23 PM EDT Gender IdentityNot on fileSexual OrientationNot on file Last Filed Vital Signs Vital SignReadingTime TakenCommentsBlood Qvxafrqq316/8404/10/2025 10:30 AM EDT Ayttd99675/20/2025 10:30 AM UBUNvxlwcucnqt55.8 ??C (98.3 ??F)10/24/2024 8:45 AM ESTRespiratory Rate--Oxygen Fxlsrakfkx14%10/24/2024 8:45 AM ESTInhaled Oxygen Concentration--Hzahvw006 kg (253 lb 8.5 oz)04/10/2025 10:30 AM DJDFvllpb887.8 cm (5' 10 )04/10/2025 10:30 AM EDTBody Mass Index36.38004/10/2025 10:30 AM EDT Plan of Treatment Health MaintenanceDue DateLast DoneCommentsDiabetic Foot Exam1976Dilated Retinal Exam1976Annual PCP Team Chronic Disease Visit1984Depression Gmbnvmubn82/20/1984HIV Pcucskqmo12/20/1984Hepatitis C Nnlrlyqxk66/20/1984LDL Miuljnuchca87/20/1984Hepatitis B Vaccine (1 of 3 - 19+ 3-dose series)1985 Pneumococcal Vaccine: 50+ (1 of 2 - PCV)1985CT Tcmwtoxmxdzj98/20/2011 Cologuard (FIT-DNA)11/10/20118761Wabbgpsudam12/20/2011Colorectal Cancer Screening 2011Fecal Occult Blood2011Prostate Cancer Screening Discussion 11/10/20114972Sqoztmtqadviw77/20/2011Shingrix Vaccine (1 of 2)2016Medicare Advantage Annual Wellness Visit11/22/2024Urine Albumin:Creatinine Ratio /08/2024, 11/06/2020, 05/12/20184405KwW0P90/, 05/01/2024, 05/01/2024, Additional history existsCovid-19 Vaccine (1 - 2024- season)2025Influenza Vaccine (#1)2025DTaP,Tdap,Td Vaccine (2 - Td or Tdap)/ Procedures Procedure NamePriorityDate/TimeAssociated DiagnosisCommentsHEMOGLOBIN R2DSatzamr 04/10/2025 11:25 AM EDT Gastroparesis from Last 3 Months or Most Recently Relevant to Health Maintenance Results * (ABNORMAL) HEMOGLOBIN A1C (04/10/2025 11:25 AM EDT)ComponentValueRef RangeTest MethodAnalysis TimePerformed AtPathologist SignatureHemoglobin A1C11.0(H)4.3 - 5.6 %04/10/2025 9:[address] [facility]Comment:[place] Diabetes Association guidelines indicate that patients with HgbA1c in the range 5.7-6.4% are at increased risk for development of diabetes, and intervention by lifestyle modification may be beneficial. HgbA1c greater or equal to 6.5% is considered diagnostic of diabetes.Estimated Average Glucose 269mg/dL04/10/2025 9:[address] [facility] LABComment:eAG: (Estimated average glucose) is a calculated value from HgbA1c and is employee representative of the average blood glucose level in the last 2-3 month period.Specimen (Source)Anatomical Location / LateralityCollection Method / VolumeCollection TimeReceived TimeBloodBLOOD SPECIMEN / UnknownVenipuncture / Vyqosxs7804/10/2025 11:25 AM EDT04/10/2025 11:28 AM EDT Narrative Authorizing ProviderResult TypeResult StatusMichael S Figueredo DOLABORATORYFinal ResultPerforming OrganizationAddressCity/State/ZIP CodePhone Number [facility] [address] [facility] [address] [place] [phone], from Last 3 Months or Most Recently Relevant to Health Maintenance Insurance
--- OUTSIDE RECORDS SUMMARY | 2025-10-02 10:46 | XMS_ITS | Clinical Summary ---
Author Organization [facility] Address [address] [facility], [address] [place] [address] Care Team Providers Care Concrete Batch Plant Operator Name Role Phone Marilee Staples APRN, NP Primary Care Provide r Allergies Active AllergyReactionsCriticalityNoted DateCommentsBee VenomOther (See Comments)Qxfjhp4511/05/2020 Local swelling Medications MedicationSigDispense QuantityRefillsLast FilledStart DateEnd [...] vial Inject 32 Units into the skin nvmsapj8611/20/2020Active B-D UF III MINI PEN NEEDLES 31G X 5 MM MISC 04/22/2021ctive lisinopril (PRINIVIL;ZESTRIL) 10 MG tablet Take 10 mg by mouth daily (with breakfast)Active Social History Tobacco UseTypesPacks/DayYears UsedDateSmoking Tobacco: NeverSmokeless Tobacco: NeverSex and Gender InformationValueDate RecordedSex Assigned at BirthNot on fileLegal XiqCmza1106/10/2015 2:59 PM EDTGender IdentityNot on fileSexual OrientationNot on file Last Filed Vital Signs Vital SignReadingTime TakenCommentsBlood Aqcboamp397/8206 10:44 AM EDT Mnvrx8686/02/2021 10:44 AM KPICoglckpteud01.4 ??C (97.5 ??F)04/23/2021 10:44 AM EDTRespiratory Rzqy038004/23/2021 10:44 AM EDTOxygen Fjenlkfknj33%04/23/2021 10:44 AM EDTROOM AIR AT RESTInhaled Oxygen Concentration--Sewfrx49.3 kg (208 lb) 04/23/2021 10:44 AM JMBTnskwi555.8 cm (5' 10 )04/23/2021 10:44 AM EDTBody Mass Index29.8404/23/2021 10:44 AM EDT Plan of Treatment Not on file Insurance Care Teams Team MemberRelationshipSpecialtyStart DateEnd Date Marilee Staples, COUNTER CLERK [employer] EXTRACTION WORKER [address] [place] [place] [phone] PCP - GeneralNurse Practitioner03/26/21
--- OUTSIDE RECORDS SUMMARY | 2025-10-02 10:46 | XMS_ITS | Clinical Summary ---
Author Organization [employer] tem Address [id number] [address] [place] [address] Care Team Providers Care Learning Support Assistant Name Role Phone Brendalauren Jessee Duran DO Primary Care Provider [phone] Allergies Active AllergyReactionsCriticalityNoted DateCommentsBee Venom Protein (Honey Bee)Other (See Comments)Ywmzxe5911/05/2020 Local swelling Medications MedicationSigDispense QuantityRefillsLast FilledStart DateEnd [...] INSTILL 1 DROP INTO LEFT EYE AT LFPUPLV38/07/2025Active BD VERO 2ND GEN PEN NEEDLE 32 gauge x 5/32 needle 1 Pen Needle by other route 3 (three) times a day.5Active blood-glucose meter kit Indications:Type 2 diabetes mellitus with foot ulcer, with long-term current use of insulin ([facility])Use as instructed 1 each 5Active doxycycline (MONODOX) 100 mg capsule TAKE 1 CAPSULE BY MOUTH TWICE DAILY FOR 14 DAYS5Active clopidogreL (PLAVIX) 75 mg tablet Take 1 tablet (75 mg total) by mouth.5Active collagenase (SantyL) ointment Indications:Ulcer of right foot with fat layer exposed ([facility])Apply 1 Application topically in the morning. 30 g 5Active blood sugar diagnostic (ACCU-CHEK GUIDE TEST STRIPS) strip Indications:Type 2 diabetes mellitus with foot ulcer, with long-term current use of insulin ([facility])1 strip by other route 3 (three) times [...] hyperlipidemia due to type 2 diabetes mellitus ([facility])Take 1 tablet (500 mg total) by mouth nightly. 90 tablet 5Active lisinopriL (PRINIVIL,ZESTRIL) 10 mg tablet Indications:Benign essential HTN,Type 2 diabetes mellitus with foot ulcer, with long-term current use of insulin ([facility])Take 1 tablet (10 mg total) by mouth in the morning for 360 days. 90 tablet 509/6Active semaglutide (OZEMPIC) 0.25 mg or 0.5 mg (2 mg/3 mL) pen injector Indications:Type 2 diabetes mellitus with other circulatory complication, with long-term current use of insulin([facility])Inject 0.5 mg under the skin every 7 days. 2 mL 5Active insulin glargine (LANTUS SOLOSTAR U-100 INSULIN) 100 unit/mL (3 mL) insulin pen Indications:Type 2 diabetes mellitus with foot ulcer, with long-term current use of insulin ([facility])Inject 36 Units under the skin in the morning and at bedtime.5Active insulin aspart U-100 (NovoLOG) 100 unit/mL (3 mL) insulin pen Indications:Type 2 diabetes mellitus with foot ulcer, with long-term current use of insulin ([facility])Sliding scale with carb counting before meals three [...] ulcer, with long-term current use of insulin ([facility])38 units in the morning and 40 units at nighttime 10 mL Discontinued amoxicillin-pot clavulanate (AUGMENTIN) 875-125 mg per tablet Indications:Ulcer of right foot with fat layer exposed ([facility])Take 1 tablet by mouth in the morning and 1 tablet before bedtime. Do all this for 14 days. 28 tablet Expired Active Problems ProblemNoted DateDiagnosed DatePeripheral artery fgmmcyp4007/06/2025 Assessment & Plan (07/06/2025 2:46 PM EDT): Patient with moderate to severe peripheral artery disease based on studies from hospitalization earlier in June. Patient scheduled to have vascular procedure on 07/09. Improvement in vascular function will help with diabetic foot ulcer heal Chronic midline low back pain without xgfbkayk41/06/2025 Assessment & Plan (05/10/2025 12:57 PM EDT): [...] lisinopril 10 mg daily. Fatty liver disease, ksnikuxzhdzf05/06/2025 Assessment & Plan (04/27/2025 9:13 PM EDT): Ordered lab work including comprehensive metabolic panel to evaluate for level of transaminase elevation Type 2 diabetes mellitus with pressure kzqgaw8604/11/2025Unstable ankle, right 04/11/2025History of transmetatarsal amputation of right foot03/28/2025Ulcer of right foot with fat layer jtdaoyv5908/07/2021 Overview (08/07/2021): Added automatically from request for surgery [id number] Osteomyelitis of left foot1Diabetes bwboqvdp08/30/2021 Assessment & Plan (07/06/2025 2:42 PM EDT): Patient diabetes is uncontrolled. Due to financial restrictions, he is unable to afford insulin which he uses to control blood sugar. Patient's last hemoglobin A1c from April 2025 was 11.5%. Discussed with patient the importance of blood sugar control. Since patient having difficulty affording the cost of medications we will refer patient to the [facility] medical management team fordiabetes to aid [...] before meals. Monitor blood sugars before meals. Okzqhtizvgcncv62/30/2021Charcot's joint of foot, left03/19/2021 Overview (03/19/2021): Added automatically from request for surgery [id number] Wound, open, foot with complication, left, initial wukammeum11/05/2021epsis 1Diabetic ulcer of right midfoot associated with type 2 diabetes mellitus, with muscle involvement without evidence of sijosszy44/19/2021hronic osteomyelitis of left foot with draining sinus02/07/2021 Encounters DateTypeDepartmentCare VcguJomklolyfar63/31/2025 8:30 AM EDTClinical Support [address] [address] Jessee Molina DO Gastroesophageal reflux disease, unspecified whether esophagitis present (Primary Dx); Type 2 diabetes mellitus with foot ulcer, with long-term current use of insulin ([facility]); Benign essential HTN; Chronic midline low back pain without sciatica; Mixed hyperlipidemia due to type 2 diabetes mellitus ([facility])09/21/2025Travel 08/30/2025Telephone [facility] - [facility]acy Medication Management [address] [place] [address] Brianna Ocasio MA 08/27/2025Telephone [facility] Medicine [address] [place] [address] Jessee Molina DO 08/24/2025Telephone [address] [phone] Ana Marquez, [facility] 08/16/2025Telephone [facility] [address] [place] [address] Ana Marquez, [facility] 08/13/2025 8:00 AM EDTClinical Support [place] - [facility] Medication Management [address] [facility] [place] [address] 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 ([facility]) [E11.628, L84] (Primary Dx)08/10/2025 10:00 AM EDTOffice Visit [facility] [address] [place] [address] Jessee Molina, Type 2 diabetes mellitus with other circulatory complication, with long-term current use of insulin([facility]) (Primary Dx); Type 2 diabetes mellitus with foot ulcer, with long-term current use of insulin ([facility]); Benign essential HTN; Mixed hyperlipidemia due to type 2 diabetes mellitus ([facility]); Gastroesophageal reflux disease, unspecified whether esophagitis present; Chronic midline low back pain without sciatica; Ulcer of right foot with fat layer exposed ([facility])08/10/20259103Ywlfkv23/26/2025 Patient Assistance [facility] Medication Management [address] [place] [place] [address] Medication Management, [facility] 07/17/2025Results Follow-Up [facility] [address] [place] [phone] Jessee Molina DO Lipid panel07/16/2025 8:00 AM EDTClinical Support [place] [facility] Medication Management [address] [place] [address] Type 2 diabetes mellitus with other circulatory complication, with long-term current use of insulin([facility]) (Primary Dx)07/16/20257648Epjkxr21/15/2025[facility]phone [facility] [address] [place] [phone] Alma AnaDIVINA 07/05/2025 9:30 AM EDTOffice Visit [facility] [address] [place] [address] [place] [phone] Jessee Molina, Ulcer of right foot with fat layer exposed ([facility]) (Primary Dx); Type 2 diabetes mellitus with foot ulcer, with long-term current use of insulin ([facility]); Hyperlipidemia, unspecified hyperlipidemia type; Gastroesophageal reflux disease, unspecified whether esophagitis present; Peripheral artery rdskbua8107/05/2025[facility] [address] [place] [address] [place] [address] Jessee Molina, Type 2 diabetes mellitus with foot ulcer, with long-term current use of insulin ([facility])07/05/2025[facility] [address] Jessee Molina DO Ulcer of right foot with fat layer exposed ([facility])07/05/2025Telephone [facility] Medication Management [address] [facility] [place] [place] [address] Medication Management, [facility] 07/05/2025Travelfrom Last 3 Months Immunizations No [...] friends or relatives?Never02/07/2021How often do you attend gnosticist or spiritism services?Never1Do you belong to any clubs or organizations such as gnosticist groups, unions, fraternal or athletic groups, or school groups?No 02/07/2021How often do you attend meetings of the clubs or organizations you belong to?Never02/07/2021re you , , , , never , or living with a partner?Kycmbtqu00/19/2021Overall Financial Resource Strain (CARDIA)AnswerDate RecordedHow hard is it for you to pay for the very basics like food, housing, medical care, and heating?Not very hard02/07/2021 PHQ-2AnswerDate RecordedTotal Okvdk243Finjordan [facility] [place] of Occupational Health - Occupational Stress QuestionnaireAnswerDate RecordedDo you feel stress - tense, restless, nervous, or anxious, or unable to sleep at night because your mind is troubled all the time - these days?To some webgbx4502/07/2021xercise Vital SignAnswerDate RecordedOn average, how many days [...] drinks on one occasion?Never09/21/2025hildcareAnswerDate RecordedDo problems getting children's aide make it difficult for you to work [...] InformationValueDate RecordedSex Assigned at BirthNot on fileLegal PbvPkte1806/27/2015 11:23 AM EDTGender IdentityNot on fileSexual OrientationNot on file Last Filed Vital Signs Vital SignReadingTime TakenCommentsBlood Ljbyqcil179/7409/21/2025 8:28 AM EDT Uojhk579209/21/2025 8:28 AM YVROchzbezxfei43.5 ??C (97.7 ??F)09/21/2025 8:28 AM EDTRespiratory Kcsy051604/24/2025 9:00 AM EDTOxygen Mwtumbewrs08%09/21/2025 8:28 AM EDTInhaled Oxygen Concentration--Ljojsn816.9 kg (257 lb 12.8 oz)09/21/2025 8:28 AM EHRJhboqo253 cm (5' 8.5 )04/26/2025 2:12 PM EDTBody Mass Index38.62 04/26/2025 2:12 PM EDT Plan of Treatment DateTypeDepartmentCare Team (Latest Contact Info)Pyahvqldtbp88/02/2026 11:00 AM ESTClinical Support [facility] [address] [place] [address] [place] [address] Jessee Molina, DO [address] [place] [address], [address], [place] [address] Health MaintenanceDue DateLast DoneCommentsDiabetic Ophthalmology Exam1966 Adult BMI Follow Up Plan1984Zoster (Shingles) Vaccine (1 of 2)2016 Diabetic Foot Exam/, 02/07/2021Influenza Nacapra2907/23/2025 Statin Use: Cnddwtmmprikni15/19/202609/Statin Use: Atdhtiwh69/19/2026 08/10/2025dult BMI Anbllthvw41Depression Ajzowrgas59/31/2026 09/21/2025Tobacco Ncynedsot92DTaP,Tdap and Td Vaccines (2 - Td or Tdap) Goals GoalPatient Goal TypeAssociated ProblemsRecent ProgressPatient-Stated?Author <enter goal here> Yulia Leon RN Note: Evaluation of progress towards goal: [facility] Medical Devices ImplantedTypeAreaManufacturerDevice IdentifierShelf Expiration DateModel / Serial / LotCmnt Bn Bio 40gm Rpl [id number] - [id number] Implanted:Qty: 2 on 02/07/2021 by [facility]am [facility]: Foot[employer]immer [id number] / / [id number] Iol Ultrasert 18.5d - [id number] - [id number] Implanted:Qty: 1 on 12/28/2019 [facility]: [id number] 18.5 / [id number] / NAExplantedTypeAreaManufacturerDevice IdentifierShelf Expiration DateModel / Serial / LotPin Fx 9in 9/64in Stnm Ft 2 - [id number] Explanted:Qty: 4 on 04/18/2021 at [facility] [id number] / / Description: wilfrid pin from tray (smooth wilfrid pins double ended) Procedures Procedure NamePriorityDate/TimeAssociated DiagnosisCommentsPOCT HEMOGLOBIN A1C Ltwspfj1109/21/2025 8:50 AM EDT Type 2 diabetes mellitus with foot ulcer, with long-term current use of insulin ([facility]) LIPID EXDETBMSrtzead03/25/2025 9:20 AM EDT Type 2 diabetes mellitus with foot ulcer, with long-term current use of insulin ([facility]) Hyperlipidemia, unspecified hyperlipidemia type from Last 3 Months Results * (ABNORMAL) POCT Hemoglobin A1c (09/21/2025 8:50 AM EDT)ComponentValueRef Range Test MethodAnalysis TimePerformed AtPathologist SignatureExternal Poct Hgb A1C 9.0(A)4 - 7 %MANUALLY TRANSCRIBED RESULTSADA Target < 8YesMANUALLY TRANSCRIBED RESULTSSpecimen (Source)Anatomical Location / LateralityCollection Method / VolumeCollection TimeReceived ResaLfzhj70/31/2025 8:50 AM EDT Narrative Authorizing ProviderResult TypeResult StatusMicfelicia Molina DOPOINT OF CARE TEST ORDERABLESFinal ResultPerforming OrganizationAddressCity/State/ZIP CodePhone Number MANUALLY TRANSCRIBED RESULTS * (ABNORMAL) Lipid panel (07/16/2025 9:20 AM EDT)ComponentValueRef RangeTest MethodAnalysis TimePerformed AtPathologist DcaccbtdyUULSMBTWCGN380998 - 200 mg/dL07/16/2025 3:26 PM [facility] UHPUAGIPIEEICDGZTKAPWD202 (H)27 - 150 mg/dL07/16/2025 3:26 PM [facility] LABORATORYHDL JHQJJLSAGUK46(L)>39 mg/dL07/16/2025 3:26 PM [facility] LABORATORYComment: HDL <40 mg/dL - High Risk HDL > or = 40mg/dL- Desirable HDL >60 mg/dL - Negative Risk LDL (CALC)128<130 mg/dL07/16/2025 3:26 PM [facility] Comment: LDL <100 mg/dL - Desirable LDL >160 mg/dL - High Risk CHOLESTEROL:HDL5.8(H)1.0 - 5.008 3:26 PM [facility] LABORATORYVERY LOW ZARNJAHDODJ04(H)0 - 30 mg/dL07/16/2025 3:26 PM [facility] LABORATORYSpecimen (Source)Anatomical Location / Laterality Collection Method / VolumeCollection TimeReceived TimeBloodVenous blood / UnknownVenipuncture / Rwgylrk3007/16/2025 9:20 AM EDT07/16/2025 9:20 AM EDT Narrative Authorizing ProviderResult TypeResult StatusMicfelicia Molina DOLAB BLOOD ORDERABLESFinal ResultPerforming OrganizationAddressCity/State/ZIP CodePhone Number [facility] [address] [place] [address], from Last 3 Months Insurance * Guarantor: [facility]Account TypeRelation to PatientDate of PhoneBilling AddressCorporateOther [address] [place] [address] Advance Directives * Full Code (Latest Code Status on File) Date ActivatedDate InactivatedComments04/17/2021 12:59 PM04/21/2021 5:08 PM * Full Code Date ActivatedDate InactivatedComments02/07/2021 2:54 AM02/13/2021 1:11 AM Care Teams Team MemberRelationshipSpecialtyStart DateEnd Date Jessee Molina, DO [address] [facility] [address] [place] [address] [facility] Medicine04/26/25
--- OUTSIDE RECORDS SUMMARY | 2025-10-02 10:46 | XMS_ITS | Clinical Summary ---
Author Organization [facility] Address [facility] [place] [address] Care Team Providers Care Ticket Scheduler Name Role Phone Marilee Staples CNP Primary Care Provider [phone] Allergies No known active allergies Medications MedicationSigDispense [...] both eyes, with long-term current use of ilalkzk6111/06/2020Secondary DM with DKA 11/05/2020 Family History Medical HistoryRelationCommentsDiabetesBrotherDiabetesFatherHeart diseaseFather DiabetesMotherRelationStatusCommentsBrotherFatherMother Social History Tobacco UseTypesPacks/DayYears UsedDateSmoking Tobacco: NeverSmokeless Tobacco: NeverAlcohol UseStandard Drinks/WeekCommentsYes0 (1 standard drink = 0.6 oz pure alcohol)rarelySex and Gender InformationValueDate RecordedSex Assigned at Not on fileLegal OrvVgin33/15/2020 1:33 PM ESTGender IdentityNot on fileSexual OrientationNot on file Last Filed Vital Signs Vital SignReadingTime TakenCommentsBlood Dxmumoob420/6003 1:44 PM EDT Hugpe49497 1:44 PM TCXKopoyiqppdt91.6 ??C (97.9 ??F)02/06/2021 1:44 PM EDTRespiratory Locd351002/06/2021 1:44 PM EDTOxygen Xhiqzkfmao02%02/06/2021 1:44 PM EDTInhaled Oxygen Concentration--Ptybju986 kg (231 lb 7.7 oz)11/18/2020 11:38 AM EJVFfxkre623.8 cm (5' 10 )11/18/2020 11:38 AM ESTBody Mass Index33.21 11/18/2020 11:38 AM EST Plan of Treatment Health MaintenanceDue DateLast DoneCommentsCT Ioetxxvnpbar1966Colonoscopy 1966Colorectal Cancer Screening/Loedysilhg1966Fecal DNA1966 Fecal occult blood test (FOBT,FIT)1966PSA Level1966MMR Vaccines (1 of 1 - Standard series)1967Wellness Visit1969Depression Screening/Follow-Up (PHQ-2/9)1978HIV Gjzpbihvu48/20/1981Hepatitis C Wpkaabwjy36/20/1984Hepatitis B Vaccines (1 of 3 - 19+ [...] Advance Directives For more information, please contact: [phone] * Full Code - Unverified (Latest Code Status on File) Date ActivatedDate IxpmdvmnchuZvuftlgx27/15/2020 7:21 PM11/21/2020 10:03 PM Care Teams Team MemberRelationshipSpecialtyStart DateEnd Date Marilee Staples, RECRE[employer] PROGR[employer] DIRECTOR [address] [place] [address] PCP - GeneralNurse Gswxywpdlgir45/15/20
--- OUTSIDE RECORDS SUMMARY | 2025-10-02 10:46 | XMS_ITS | Encounter Summary ---
Author Organization [employer] [facility] tem Address [facility] [address] [place] [address] Care Team Providers Care Alteration Tailor Apprentice Name Role Phone BrendaJessee aguilar Roger SCHWARZ Primary Care Provider [phone] Encounter Details DateTypeDepartmentCare Team (Latest Contact Info)Bblkwiwyaqe36/31/2025Travel Social History Tobacco UseTypesPacks/DayYears UsedDateSmoking Tobacco: NeverSmokeless Tobacco: NeverAlcohol UseStandard Drinks/WeekCommentsNot Currently0 (1 standard drink = 0.6 oz pure alcohol)quit 2006Social Connection and Isolation PanelAnswerDate RecordedIn a typical week, how many times do you talk on the phone with family, friends, or neighbors?Twice a week02/07/2021How often do you get together with friends or relatives?Never02/07/2021How often do you attend rastafarian or caodaism services?Never1Do you belong to any clubs or organizations such as rastafarian groups, unions, fraternal or athletic groups, or school groups?No 02/07/2021How often do you attend meetings of the clubs or organizations you belong to?Never02/07/2021re you , , , , never , or living with a partner?Ujihkqfz01/19/2021Overall Financial Resource Strain (CARDIA)AnswerDate RecordedHow hard is it for you to pay for the very basics like food, housing, medical care, and heating?Not very hard02/07/2021 PHQ-2AnswerDate RecordedTotal Jucmf366Finshriners hospitals for children [place] of Occupational Health - Occupational Stress QuestionnaireAnswerDate RecordedDo you feel stress - tense, restless, nervous, or anxious, or unable to sleep at night because your mind is troubled all the time - these days?To some srskce9102/07/2021xercise Vital SignAnswerDate RecordedOn average, how many days [...] drinks on one occasion?Never09/21/2025hildcareAnswerDate RecordedDo problems getting exceptional children teacher make it difficult for you to [...] InformationValueDate RecordedSex Assigned at BirthNot on fileLegal NxiGvxq3206/27/2015 11:23 AM EDTGender IdentityNot on fileSexual OrientationNot on filedocumented as of this encounter Functional Status * AUDIT-C ScoreAnswerDate of KeisldhjhfSgyglx277/31/2025 8:28 AM Danielle Lopez CNA * QuestionAnswerDate [...] Plan of Treatment DateTypeDepartmentCare Team (Latest Contact Info)Lckulojazdj09/02/2026 11:00 AM ESTClinical Support [facility] [address] [place], [place] [phone] Jessee Molina DO [address] [facility], [place] [address] documented as of this encounter Goals GoalPatient Goal TypeAssociated ProblemsRecent ProgressPatient-Stated?Author <enter goal here> Yulia Leon RN Note: Evaluation of progress towards goal: [facility] intermediate facility documented as of this encounter Visit Diagnoses Not on filedocumented in this encounter Additional Health Concerns AssessmentNoted TimePHQ-9 Depression Total Score: 8:28 AM EDT documented as of this encounter Care Teams Team MemberRelationshipSpecialtyStart DateEnd Date Jessee Molina DO [address] [facility], [place] [address] PCP - GeneralFamily Medicine04/26/25documented as of this encounter
--- OUTSIDE RECORDS SUMMARY | 2025-10-02 10:46 | XMS_ITS | Clinical Summary ---
Author Organization [facility] Healthcare Address [address] [place] [address] Care Team Providers Care Home Economist Name Role Phone Unallocated, Noms Provider Primary [...] DROP INTO LEFT EYE IN THE EVENING ZNMJHSZN66/12/2024ctive moxifloxacin (Vigamox) 0.5 % ophthalmic solution 03/01/2024ctive [...] with hyperglycemia, with long-term current use of wheurmj4201/06/2024 Assessment & Plan (03/13/2024 9:09 AM EDT): [...] that we could order from [facility] in [place] as they can bill DME, he then [...] he cannot do this or that. Bj Quñiones Tyrell in 10/2023, she felt that he [...] done as well!! Family history of heart mktwtig0001/06/2024Elevated alkaline phosphatase level 01/06/2024nxiety, ltqzmyzlkjc65/15/2024Encounter for subsequent annual wellness visit (AWV) in Medicare tpbaijx7401/06/2024 Assessment & Plan (01/06/2024 4:55 PM EST): Reviewed Ht/Wt/BMI Recommend eye exam yearly Recommend dental exams twice a year Balance work/leisure activities Exercises is recommended most days of the week (appropriate as chronic conditions allow) Follow up yearly and prn Colon cancer sxhuytviv03/12/2023Obesity (BMI 30-39.9)11/02/2023Vitamin D gwyvccqeje90/12/2023 Assessment & Plan (11/02/2023 3:09 PM EST): Check labs Type 2 diabetes mellitus with diabetic neuropathy, peyzigvtvnx92/06/2023 Assessment & Plan (03/13/2024 9:01 AM EDT): Continue with duloxetine as well as elavil 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 Assessment & Plan (11/02/2023 3:11 PM EST): Has upcoming appt with diabetic specialist Check labs Fu in 8 weeks Neveotumwgeywnu06/06/6984Lisdsihgjdfy25/06/3964Utecjfrqskua58/06/2023 Assessment & Plan (03/13/2024 9:02 AM EDT): At goal, no changes to kam Check labs Assessment & Plan (01/06/2024 9:03 PM EST): At goal, labs need completed from 11/13 Gastroesophageal reflux wtkogsk1410/27/2023 Overview (02/03/2024): EGD 02/03/24 Assessment & Plan (03/13/2024 9:02 AM EDT): Continue with GI for management of this Assessment & Plan (01/06/2024 9:04 PM EST): Check labs, stable on current meds Assessment & Plan (11/02/2023 3:09 PM EST): No changes in meds Abnormal gait10/27/2023Nausea and sglvenbt93/24/2023hronic yqplldgw54/24/2023 Ulcer of right foot with fat layer qdxlfbk4208/07/2021 Overview (10/27/2023): Added automatically from request for surgery [id number] Xrwucyrrxnbjyc50/30/2021 Assessment & Plan (11/02/2023 3:09 PM EST): Cont statin Check labs Bkhgcqvyur12/05/2014 Resolved Problems ProblemNoted DateDiagnosed DateResolved DateOpen wound of toe10/27/2023 01/06/2024harcot's joint of foot, left Overview (10/27/2023): Added automatically from request for surgery [id number] Wound, open, foot with complication, left, initial nnipqgfwn89 Sktmjp29hronic osteomyelitis of left foot with draining sinus iabetic ulcer of left midfoot associated with type 2 diabetes mellitus, with necrosis of boneOpen wound of foot excluding toes1/95097601/06/2024losed multiple fractures of hand bones Immunizations ImmunizationAdministration DatesNext OsjUlxk4301/04/2023 Family History Medical HistoryRelationNameCommentsHeart diseaseFatherHyperlipidemiaFather HypertensionFatherDiabetesMotherHyperlipidemiaMotherHypertensionMotherKidney diseaseMotherDiabetesSiblingsisterRelationNameStatusCommentsFatherOtherMother [...] friends or relatives?Never01/06/2024How often do you attend muslim or adventism services?Never4Do you belong to any clubs or organizations such as muslim groups, unions, fraternal or athletic groups, or school groups?Yes 01/06/2024How often do you attend meetings of the clubs or organizations you belong to?Never01/06/2024re you , , , , never , or living with a partner?Jcuvhgry22/15/2024UDIT-CAnswerDate Recorded Q1: How often do you have [...] heating?Not hard at all01/06/2024HQ-2AnswerDate RecordedPatient Health Questionnaire-2 Nngfp912Finhuntsman mental [facility] institute [place] of Occupational Health - Occupational Stress QuestionnaireAnswerDate [...] steady place to sleep or slept in aritonelter (including now)?No01/06/2024Sex and Gender InformationValueDate RecordedSex Assigned at BirthNot on fileLegal RklHxbi0602/03/2023 7:39 PM EDT Gender IdentityNot on fileSexual OrientationNot on file Last Filed Vital Signs Vital SignReadingTime TakenCommentsBlood Gxdqiokn373/78003/13/2024 8:25 AM EDT Ueshj18051/22/2024 8:25 AM ZMOTomclvyoiku33.4 ??C (97.5 ??F)03/13/2024 8:25 AM EDTRespiratory Gdbx662803/13/2024 8:25 AM EDTOxygen Djuvsqclbs59%03/13/2024 8:25 AM EDTInhaled Oxygen Concentration--Bawptj597 kg (256 lb 12.8 oz)03/13/2024 8:25 AM GTJOqbhxk884.1 cm (5' 10.5 )03/13/2024 8:25 AM EDTBody Mass Index36.33 03/13/2024 8:25 AM EDT Plan of Treatment Health MaintenanceDue DateLast DoneCommentsCT Tscqvswcetha1966Colonoscopy 1966Colorectal Cancer Dscnmhzgj1966FIT-DNA1966FIT1966 FOBT1965 4762Iexwvyawaadyf1966Pneumococcal Vaccine: Pediatrics (0 to 5 Years) and At-Risk Patients (6 to 64 Years) (1 of 2 - PCV)1985Diabetes: Retinopathy Avuzriamv98/, 02/16/2023Medicare Annual Wellness (AWV)502/, 01/06/2024iabetes: Urine Protein Mdtlkyiwz41/10/2025 05/01/2024, 05/01/2024, 05/01/2024, Additional history existsCOVID-19 Vaccine ( - season)2025Influenza Vaccine (#1)2025Diabetes: Hemoglobin A1C, 04/10/2025, 05/01/2024, Additional history exists Procedures Procedure NamePriorityDate/TimeAssociated DiagnosisCommentsMICROALBUMIN / CREATININE URINE KBRVXKayppym84/10/2024 11:29 AM EDT HEMOGLOBIN S8YSokctdj23/10/2024 11:29 AM EDT from Last 3 Months or Most Recently Relevant to Health Maintenance Results * Microalbumin / creatinine urine ratio (05/01/2024 11:29 AM EDT)ComponentValue Ref RangeTest MethodAnalysis TimePerformed AtPathologist Signature MICROALBUMIN, URINE1.80.0 - 1.9 mg/dLPROMEDICAURINE YFNYM277.90mg/dLPROMEDICA ALB/CREAT RATIO9.70.0 - 30.0 mg/g creatPROMEDICAComment:PERFORMED AT [facility] [address],[place], [place] [address]Bojozkjd (Source) Anatomical Location / LateralityCollection Method / [...] in vivo glycation rates are affected. AVERAGE KAOUQGC368tq/dLPROMEDICAComment:PERFORMED AT [facility] [address],[place], [place] [address]Iudgddzi (Source)Anatomical Location / LateralityCollection Method / VolumeCollection TimeReceived Time05/01/2024 11:29 AM EDT05/01/2024 11:30 AM EDT Narrative Authorizing ProviderResult TypeResult StatusLisa Aichholz NPLAB BLOOD ORDERABLES Final ResultPerforming OrganizationAddressCity/State/ZIP CodePhone Number [place] from Last 3 Months or Most Recently Relevant to Health Maintenance Insurance Care Teams Team MemberRelationshipSpecialtyStart DateEnd Date Unallocated, [place] MD [address] [place] [address] PCP - GeneralFamily Medicine05/30/25
--- OUTSIDE RECORDS SUMMARY | 2025-10-02 10:48 | XMS_ITS | Clinical Summary ---
Author Organization [facility] Address [address] [place] [address] Care Team Providers Care Software Developer Name Role Phone Unavailable Primary Care Provider Unavailabl e Social History Tobacco UseTypesPacks/DayYears UsedDateSmoking Tobacco: Never AssessedUT Safety & EnvironmentAnswerDate RecordedFear of Current or Ex-PartnerNot on file 01/13/2024Emotionally AbusedNot on file01/13/2024hysically AbusedNot on file 01/13/2024Sexually AbusedNot on file4Physically or Sexually AbusedNot on file01/13/2024Sex and Gender InformationValueDate RecordedSex Assigned at BirthNot on fileLegal BotJexh3805/20/2022 10:43 PM EDTGender IdentityNot on file Sexual OrientationNot on file Last Filed Vital Signs Vital SignReadingTime TakenCommentsBlood Rwpsmpoq215/8402 11:02 AM EST Ltyue728012/26/2018 11:02 AM ESTTemperature--Respiratory Rate--Oxygen Saturation-- Inhaled Oxygen Concentration--Tqpmvu68.5 kg (204 lb)03/28/2021 1:29 PM EDTHeight 175.3 cm (5' 9 )12/26/2018 10:59 AM ESTBody Mass Index30.13012/26/2018 10:59 AM EST Plan of Treatment Health MaintenanceDue DateLast DoneCommentsCT Gdsbxorudxer1966Colonoscopy 1966Colorectal Cancer Oqgdbmfkl1966FIT-DNA1966FIT1966 FOBT1966Medicare Annual Wellness (AWV)1965 5834Pehlpergrzjxi1966 Diabetes: Retinopathy Krthjpojg59/20/1976Depression Zspmcsjlx96/20/1978Diabetes: Urine Protein Kvlzuxzkk02/20/1985Hepatitis B Vaccines (1 of 3 - 19+ 3-dose series)1985Adult Omcggyi1211/10/1988Zoster Vaccines (1 of 2)2016 Diabetes: Hemoglobin A1CCOVID-19 [...] complete this topic Procedures Procedure NamePriorityDate/TimeAssociated DiagnosisCommentsHEMOGLOBIN Q9QRjsbwcq 12/26/2018 12:20 PM EST from Last 3 Months or Most Recently Relevant to Health Maintenance Results * (ABNORMAL) Hemoglobin A1C (12/26/2018 12:20 PM EST)ComponentValueRef RangeTest MethodAnalysis TimePerformed AtPathologist SignatureHemoglobin A1C7.6(H)4.0 - 6.0 %LAB CONVERSIONSEstimated Average Skmuogs486(H)70 - 126 mg/dLLAB CONVERSIONSSpecimen (Source)Anatomical Location / LateralityCollection Method / VolumeCollection TimeReceived Time12/26/2018 12:20 PM EST12/26/2018 12:20 PM EST Narrative Authorizing ProviderResult TypeResult StatusJocamila YFrankie ClarosLAB BLOOD ORDERABLESFinal ResultPerforming OrganizationAddressCity/State/ZIP CodePhone Number LAB CONVERSIONS from Last 3 Months or Most Recently Relevant to Health Maintenance Insurance * Guarantor: Rashel Rodriguez TypeRelation to PatientDate of BirthPhone Billing AddressPersonal/BduuvwEiwi1965 [facility] [place] [address]
== END 2025-10-02 10:45 | disposition home or self-care (01) ==
LOC: WC 10:44
PROVIDERS: PCP Family Medicine; Visit Provider Physician Assistant
DX: E11.621 Type 2 diabetes mellitus with foot ulcer (principal); L97.415 Non-pressure chronic ulcer of right heel and midfoot with muscle involvement without evidence of necrosis
CPT/HCPCS: 29445

== ENCOUNTER 2025-10-08 14:10 | Outpatient (OUT) | payer MEDICARE, SELFPAY ==
--- OUTSIDE RECORDS SUMMARY | 2025-10-08 14:17 | XMS_ITS | CCD ---
Author Organization [facility] Care Team Providers Care Backup Administrator Name Role Phone JAVI FIGUEROA Admitting Unavailable [...] Unavailable Iva Black Unavailable MapusSebastián Unavailable Bel AVIONICS ELECTRICAL ENGINEER, Cheng Unavailable Jonny Zhu MD Primary Care Provider Bel AVIONICS ELECTRICAL ENGINEER, Cheng Unavailable Cheng Staples Primary Care Provider Cheng Staples Attending Provider Cheng Staples Primary Care Provider [phone] MD Karrie Imnew Attending Provider CHENG STAPLES Attending Unavailable CHENG STAPLES Attending Unavailable CHENG STAPLES Attending Unavailable Cheng Staples Primary Care Provider MD Tracy Yoon Attending Provider Unavailable Primary Care Provider Unavailke Staples TRACK REPAIR SUPERVISOR-Cheng LINDSEY Primary Care Provider ART FIGUEREDO Referring Unavailable Art Freeman DO Primary Care Provider ART FIGUEREDO Attending Unavailable ASAAD, IMAD Referring Unavailable JEROME DEL TORO Attending Unavailable ASAAD, IMAD Referring Unavailable COURTNEY GLOVER Attending Unavailable FIGUEREDO, ART S Referring Unavailable DAVIDA PRICE Attending Unavailable ASAAD, IMAD Referring Unavailable Aichholz, Cheng J Primary Care Provider Ashley EPSTEIN-CCathy Attending Provider Chan Quintanilla MD Attending Provider [phone] NON STAFF Primary Care Provider Unavailabl e [...] BADIK, ART D Primary Care Unavailable Aichholz AVIONICS ELECTRICAL ENGINEER-CCheng Primary Care Provider Cathy Hathaway Attending Provider [phone] Chan Quintanilla MD Other Provider Chan Quintanilla Attending Unavailabl Chan Epperson Admitting [...] Unavailable ART FREEMAN Primary Care Unavailable ART FREEMNA Attending Unavailable ART FREEMAN Referring Unavailable ART FREEMAN Primary Care Unavailable ART FREEMAN Attending Unavailable ART FREEMAN Referring Unavailable ART FREEMAN Primary Care Unavailable ART FREEMAN Attending Unavailable ART FREEMAN Referring Unavailable ART FREEMAN Primary Care Unavailable Allergies Allergy ClassificationReported Allergen(s)Allergy TypeDate of OnsetReaction(s) Facility (1 source)Allergic rhinitis due to pollen; Translations: [hayfever]Propensity to adverse reactions (disorder)79-98-7127[facility] (1 source)bee venomDrug allergy (disorder)[facility] (1 source)Honey bee venomPropensity to adverse omzxpfxpx28-10-1428[facility] (1 source)Bee pollenAllergy to kyjjgtipf06-24-1621Geyodpz [facility] (20 sources)bee venom protein (honey bee); Translations: [BEE VENOM PROTEIN (HONEY BEE)]Allergy to zsvchuara16-85-1412Esjde (See Comments)[facility] (8 sources)Venom-Honey Bee; Translations: [VENOM-HONEY BEE]Drug Allergy 32-74-8964Bygjftbmyup, Other: See Comments, [facility] Medications Current Medications MedicationDrug Class(es)DatesSig (Normalized)Sig (Original)amitriptyline hydrochloride 25 mg oral tablet (1 source)Tricyclic AntidepressantStart: 97-98-7892omoq 1 tablet by mouth every twenty-four hoursAmitriptyline HCl 25 MG 1 tablet at bedtime Orally Once a day for 30 days Nov, Activeamoxicillin 875 mg / clavulanate 125 mg oral tablet (15 sources)Penicillin-class AntibacterialStart: 08-27-2025 End: 59-36-3745vfwq 1 tablet by mouth once in the morningamoxicillin-pot clavulanate (AUGMENTIN) 875-125 mg per tablet Indications: Ulcer of right foot withfat layer exposed (CMS-HCC) Take 1 tablet by mouth in the morning and 1 tablet before bedtime. Do all this for 14 days. 28 tablet 08/27/2025 09/10/2025 ActiveStart: 08-10-2025 End: 13-80-1343tryo 1 tablet by mouth once in the [...] 28 tablet 08/10/2025 08/24/2025 ActiveStart: 07-09-2025 End: 81-84-0346frrq 1 tablet by mouth once dailyAmoxicillin-Pot Clavulanate 875- 125 mg tablet Discontinued 1 TAB PO Daily July 09, 2025 12:00amOct2024 10:44amStart: 06-22-2025 End: 68-75-2062janz 1 tablet by mouth twice dailyamoxicillin-pot clavulanate (AUGMENTIN) 875-125 mg per tablet TAKE 1 TABLET BY MOUTH TWICE DAILY FOR 14 DAYS 06/22/2025 07/16/2025 Discontinued (Therapy completed)Start: 04-11-2025 End: 49-68-4681yqne 1 tablet by mouth once in the morningamoxicillin-pot clavulanate (AUGMENTIN) 875-125 mg per tablet Indications: Diabetic ulcer of right midfoot associated with type 2 diabetes mellitus, with muscle involvement without evidence of necrosis (CMS-HCC) Take 1 tablet by mouth in the morning and 1 tablet before bedtime. Do all this for 10 days. 20 tablet 04/11/2025 04/21/2025 ActiveStart: 03-28-2025 End: 81-47-1985ozwi 1 tablet by mouth once in the [...] sources)Platelet Aggregation Inhibitor, Nonsteroidal Anti-inflammatory Drug Start: 30-41-5513djbm 1 tablet by mouth once dailyAspirin 81 mg tablet Active 81 MG PO Daily 90 90 2 June 28, 2025 12:00am Complies with drug therapy atorvastatin 80 mg oral tablet (20 sources)HMG-CoA Reductase InhibitorStart: 08-10-2025 End: 90-45-0195zlzq 1 tablet by mouth once daily at breakfastatorvastatin (LIPITOR) 80 mg tablet Indications: hyperlipidemia Take 1 tablet (80 mg total) by mouth daily with breakfast for 360 days Indications: excessive fat in the blood. 90 tablet 3 08/10/2025 08/05/2026 ActiveStart: 01-18-2020 End: 31-58-7102ndwm 1 tablet by mouth once dailyAtorvastatin 40 mg tablet Discontinued 40 MG PO Daily January 18, 2020 1:00am September 120:44am Lipitor Activeblood-glucose meter kit (15 sources)Start: 53-75-8139dnqqk-glucose meter kit Indications: Type 2 diabetes mellitus with foot ulcer, with long-term current use of insulin ([facility]) Use as instructed 1 each 05/16/2025 Activecelecoxib 100 mg oral capsule (20 sources)Nonsteroidal Anti-inflammatory DrugStart: 05-10-2025 End: 00-69-6946artd 1 capsule by mouth in the morningcelecoxib (CeleBREX) 100 mg capsule Indications: Chronic midline low back pain without sciatica Take 1 capsule (100 mg total) by mouth in the morning. 30 capsule 2 08/10/2025 Active cephalexin 500 mg oral capsule (2 sources)Cephalosporin AntibacterialStart: 01-09-2021 End: 54-68-2311auvg 1 capsule by mouth three times dailycephALEXin (KEFLEX) 500 MG capsule Take 1 (one) capsule (500 mg total) by mouth 3 (three) times a day for 14 days . 42 capsule 0 01/09/2021 01/23/2021 Activecholecalciferol 0.125 mg oral capsule (20 sources)Vitamin DStart: 80-12-8246qvlb 1 capsule by mouth once daily Cholecalciferol (Vitamin D3) 125 mcg (5,000 unit) capsule Active 125 MCG PO Daily February 02, 2024 12:00am Complies with drug therapyStart: 12-42-2494mjph 1 capsule by mouth in the morningcholecalciferol (Vitamin D-3) 25 MCG (1000 UT) capsule Take 1,000 Units by mouth in the morning. 0 01/04/2023 Activetake 1 capsule by mouth in the morningcholecalciferol, vitamin D3, 2,000 units capsule Take 1 capsule (2,000 Units total) by mouth in themorning. Activeclopidogrel 75 mg oral tablet (18 sources)P2Y12 Platelet InhibitorStart: 92-91-3019fcftbjfvltW (PLAVIX) 75 mg tablet Take 1 tablet (75 mg total) by mouth. 06/29/2025 Activecollagenase 0.25 unt/mg topical ointment (13 sources)Collagen-specific EnzymeStart: 42-13-6501wozspuynuok (SantyL) ointment Indications: Ulcer of right foot [...] 100 mg oral capsule (16 sources)Tetracycline-class DrugStart: 86-09-0454lxkb 1 capsule by mouth twice dailydoxycycline (MONODOX) [...] oral tablet (20 sources)Thiazide DiureticStart: 06-19-2021 End: 19-51-9638kufd 1 tablet by mouth once dailyhydroCHLOROthiazide (HYDRODIURIL) 12.5 mg tablet Indications: Benign essential HTN Take 1 tablet (12 .5 mg total) by mouth daily. 90 tablet 08/10/2025 Active3 ml insulin glargine 100 unt/ml pen injector (20 sources)Insulin AnalogStart: 94-36-7969yjrbznn glargine (LANTUS SOLOSTAR U- 100 INSULIN) 100 unit/mL (3 mL) insulin pen Indications: Type 2diabetes mellitus with foot ulcer, with long-term current use of insulin ([facility]) Inject 36 Units under the skin in the morning and at bedtime. 09/21/2025 ActiveStart: 08-10-2025 End: 80-29-2434kfndug 36 [IU] by subcutaneous injection in the morninginsulin glargine (LANTUS SOLOSTAR U-100 INSULIN) 100 unit/mL (3 mL) insulin pen Indications: Type 2diabetes mellitus with foot ulcer, with long-term current use of insulin ([facility]) Inject 36 Units under the skin in the morning and 36 Units before bedtime. 66 mL 1 08/10/2025 08/10/2025 Discontinued (Patient Never Started This Medication)Start: 05-10-2025 End: 88-42-5101gsacpg 30 [IU] by subcutaneous injection in the morninginsulin glargine (LANTUS SOLOSTAR U-100 INSULIN) 100 unit/mL (3 mL) insulin pen Indications: Type 2diabetes mellitus with foot ulcer, with long-term current use of insulin ([facility]) Inject 30 Units under the skin in the morning and 30 Units before bedtime. 18 mL 1 05/10/2025 08/10/2025 Discontinued (Reorder)Start: 04-26-2025 End: 91-29-7774tbijiz 0.3 mL by subcutaneous injection once dailyinsulin glargine (LANTUS) 100 unit/mL injection Indications: Type 2 diabetes mellitus with foot ulcer, with long-term current use of insulin ([facility]) Inject 0.3 mL (30 Units total) under the skin nightly. 10 mL 1 04/26/2025 05/10/2025 DiscontinuedStart: 11-20-2020 End: 57-33-8748jvkfxq 25 [IU] by subcutaneous injection once dailyinsulin glargine (LANTUS) 100 unit/mL injection Inject 25 (twenty five) Units under the skin nightly . 7.5 mL 0 11/20/2020 ActiveStart: 11-12-2020 End: 07-84-5928rnwszpu glargine (LANTUS) injection 25 UnitsStart: 11-11-2020 End: 47-97-7354ijwiuif glargine (LANTUS) injection 22 UnitsStart: 2020 End: 44-97-9366tvzqgnd glargine (LANTUS) injection 25 UnitsStart: 11-09-2020 End: 39-43-0408ivipqqf glargine (LANTUS) injection 32 UnitsStart: 11-07-2020 End: 47-66-3460xjenmiu glargine (LANTUS) injection 35 UnitsStart: 11-06-2020 End: 30-17-8662mqyfoph glargine (LANTUS) injection 25 UnitsStart: 01-18-2020 End: 56-57-9194rqpwll 28 [IU] by subcutaneous injection once daily at bedtime Insulin Glargine (Lantus U-100 Insulin) 100 unit/mL Solution Discontinued 28 UNIT SUBCUT Daily at bedtime January 18, 2020 1:00am May 09, 2024 2:20pm Start: 01-18-2020 End: 14-40-0213zepixe 38 [IU] by subcutaneous injection once daily in the morningInsulin Glargine 100 unit/mL (3 mL) insulin pen Discontinued 38 UNIT SUBCUT Every morning January 18, 2020 1:00am January 07, 2024 12:05pm End: 38-00-5498uhpnvr 0.28 mL by subcutaneous injection once dailyinsulin [...] Subcutaneous twice a day ActiveLantus Active End: 45-61-9653omumac 38 [IU] by subcutaneous injection once daily in the morninginsulin glargine (LANTUS) 100 unit/mL injection Inject 38 Units under the skin daily AM . 0 11/21/2020 Discontinued (Stop Taking at Discharge) End: 34-18-4893aboqlb 32 [IU] by subcutaneous injection once daily at bedtime insulin glargine (LANTUS) 100 unit/mL injection Inject 32 Units under the skin nightly HS . 0 11/21/2020 Discontinued (Stop Taking at Discharge)insulin regular, human (NOVOLIN R INJECTION) (2 sources)insulin regular, human (NOVOLIN R INJECTION) by INJECTION(UNSPECIFIED PARENTERAL ROUTES) route. Active3 ml insulin aspart, human 100 unt/ml pen injector (20 sources)Insulin AnalogStart: 26-45-3931azpczbb aspart U-100 (NovoLOG) 100 unit/mL (3 mL) insulin pen Indications: Type 2 diabetes mellituswith foot ulcer, with long-term current use of insulin [place] Sliding scale with carb counting before meals three times per day. Max dose 30 units per day 09/21/2025 ActiveStart: 05-10-2025 End: 54-96-8353eestvge aspart U-100 (NovoLOG Flexpen U-100 Insulin) 100 unit/mL (3 mL) insulin pen Indications: Type 2 diabetes mellitus with foot ulcer, with long-term current use of insulin ([facility] Sliding scale with pre meal blood sugars three times per day ( max dose 36 units/day) 15 mL 1 05/10/2025 08/10/20 25 Discontinued (Therapy completed)Start: 01-18-2020 End: 70-89-1223Itgsncz Aspart U-100 (Novolog Flexpen U-100 Insulin) 100 unit/mL (3 mL) Insulin Pen Discontinued 0 UNIT SUBCUT As Directed January 18, 2020 1:00am May 09, 2024 2:20pm per sliding scale End: 75-22-1430gwzlmgw aspart U-100 (NovoLOG) 100 unit/mL injection Inject under the skin. 04/26/2025 Discontinuedinsulin aspart (NovoLOG FLEXPEN) 100 UNIT/ML pen (If FSB 150-200; take 4 units,; 201-250, 6 UNITS,;251-300, 8 UNITS; 301-350, 10 UNITS; 350-401, 12 UNITS; Max: 40 units/day) 0 ActiveNovoLOG FlexPen 100 UNIT/ML 18 units with meals Subcutaneous twice a day ActiveNovoLOG Active End: 71-94-1391zkreqoo aspart U-100 (NovoLOG) 100 unit/mL injection Inject [...] 0.05 mg/ml ophthalmic solution (20 sources)Prostaglandin AnalogStart: 01-54-3046ptxy 1 drop(s) into the eye(s) once daily at bedtimelatanoprost (XALATAN) 0.005 % ophthalmic solution Administer 1 drop into the left eye once daily atbedtime. INSTILL 1 DROP INTO LEFT EYE AT BEDTIME 03/28/2025 ActiveStart: 99-27-5868twbj 1 drop(s) into the eye(s) once daily in the eveningLatanoprost Active 1 DROPS EYE-BOTH Daily February 02, 2024 12:00am FreeTextSi drop into affected eye in the evening Ophthalmic Once a day; Note: Source Status: Taking; Provider: Dora German (N PI: [id number])take 1 drop(s) into the eye(s) once daily in the evening Latanoprost 0.005 % 1 drop into affected eye in the evening Ophthalmic Once a day Activelisinopril 10 mg oral tablet (20 sources)Angiotensin Converting Enzyme InhibitorStart: 01-18-2020 End: 24-68-6443dzpl 1 tablet by mouth in the morninglisinopriL (PRINIVIL,ZESTRIL) 10 mg tablet Indications: Benign essential HTN , Type 2 diabetes mellitus with foot ulcer, with long-term current use of insulin ([facility]) Take 1 tablet (10 mg total) bymouth in the morning for 360 days. 90 tablet 3 08/10/2025 08/05/2026 ActiveLisinopril ActiveNetarsudil-Latanoprost (ROCKLATAN OP) (1 source)take 1 drop(s) into the eye(s) at bedtimeNetarsudil-Latanoprost (ROCKLATAN OP) Administer 1 drop into affected eye(s) at bedtime 0 Fvuozq20 hr niacin 500 mg extended release oral tablet (7 sources)Nicotinic AcidStart: 85-74-3608emxk 1 tablet by mouth once daily niacin (NIASPAN) 500 mg CR tablet Indications: Mixed hyperlipidemia due to type 2 diabetes mellitus(CMS-HCC) Take 1 tablet (500 mg total) by mouth nightly. 90 tablet 1 08/10/2025 Activesemaglutide (OZEMPIC) 0.25 mg or 0.5 mg (2 mg/3 mL) pen injector (11 sources)Start: 78-82-5954avntqfdmjix (OZEMPIC) 0.25 mg or 0.5 mg (2 mg/3 mL) pen injector Indications: Type 2 diabetes mellitus with other circulatory complication, with long-term current use of insulin ([facility]) Inject 0.5 mg under the skin every 7 days. 2 mL 08/10/2025 ActiveStart: 07-16-2025 End: 21-78-2311nakpktqjgyk (OZEMPIC) 0.25 mg or 0.5 mg (2 mg/3 mL) pen injector Indications: Type 2 diabetes mellitus with other circulatory complication, with long-term current use of insulin ([facility]) Inject 0.25mg under the skin every 7 days. 2 mL 07/16/2025 08/10/2025 Discontinued (Reorder)Start: 07-16-2025 semaglutide (OZEMPIC) 0.25 mg or 0.5 mg (2 mg/3 mL) pen injector Indications: Type 2 diabetes mellitus with other circulatory complication, with long-term current use of insulin ([facility]) Inject 0.25mg under the skin every 7 days. 2 mL 07/16/2025 Activesucralfate 1000 mg oral tablet (2 sources)Aluminum ComplexStart: 04-10-2025 End: 93-87-8790zsiy 1 tablet by mouth twice dailysucralfate (CARAFATE) 1 gram tablet Indications: Diabetic gastroparesis (HCC) Take 1 tablet by mouth two times a day. Start taking medication after procedure for 4 weeks. 60 tablet 04/10/2025 05/10/2025 Activevonoprazan (VOQUEZNA) 10 mg tablet (1 source)Start: 09-21-2025 End: 64-61-6433vlgl 1 tablet by mouth in the morningvonoprazan (VOQUEZNA) 10 mg tablet Indications: Gastroesophageal reflux disease, unspecified whether esophagitis present Take 10 mg by mouth in the morning for 30 days. 30 tablet 09/21/2025 10/21/2025 Active Completed/Discontinued Medications MedicationDrug Class(es)DatesSig (Normalized)Sig (Original)acetaminophen 325 mg oral tablet (6 sources)Start: 11-06-2020 End: 58-77-9737vber 1 tablet by mouth every six hours as neededacetaminophen (TYLENOL) tablet 650 mg End: 71-06-6701ddvq 2 tablets by mouth every six hours as needed for headache acetaminophen (TYLENOL) 500 mg tablet Indications: headache disorder Take 2 tablets (1,000 mg total) by mouth every 6 (six) hours as needed Indications: headache. 04/26/2025 Discontinuedacetaminophen 325 mg / oxyCODONE hydrochloride 5 mg oral tablet (1 source)Opioid AgonistStart: 11-07-2020 End: 47-03-5981vref 1 tablet by mouth every four hours as neededoxyCODONE- acetaminophen (PERCOCET) 5-325 mg per tablet 1 tabletalbuterol 0.833 mg/ml / ipratropium bromide 0.167 mg/ml inhalant solution (1 source)Anticholinergic, beta2-Adrenergic AgonistStart: 11-05-2020 End: 19-72-4118qswm 3 mL by inhalation every two hours as needed3 mL, Inhalation, Every 2 hour PRN (RT), wheezing, shortness of breath, Starting Wed11/05/20 at 1920alteplase (CATH BERTHA) injection 2 mg (1 source)Start: 11-19-2020 End: 93-70-2144iuatngfzh (CATH BERTHA) injection 2 mgcalcium chloride 0.0014 meq/ml / potassium chloride 0.004 meq/ml / sodium chloride 0.103 meq/ml / sodium lactate 0.028 meq/ml injectable solution (3 sources)Start: 11-11-2020 End: 79-68-9042kbgz 100 mL intravenous route every yzvl163 mL/hr, Intravenous, Continuous, Starting 11/11/20 at 1800, PACU (only)Start: 11-05-2020 End: 73-63-0998hhrqpoez Ringers infusionceFAZolin 1000 mg injection (14 sources)Cephalosporin AntibacterialStart: 12-11-2020 End: 48-48-2963rjPUOvqzf (ANCEF) 200 mg/ml injectionStart: 11-19-2020 End: 18-38-5279pyjr 2000 mg intravenous route every eight hoursceFAZolin 2,000 mg IV (Outpatient Therapy) Indications: Osteomyelitis, Charcot's foot, tunneling wound Infuse 2 (two) g (2,000 mg total) into a venous catheter every 8 (eight) hours End: 12/19/20 180vial 0 11/19/2020 12/19/2020 ActiveStart: 11-07-2020 End: 45-32-7420nhqx 2000 mg intravenous route every eight hoursceFAZolin (ANCEF) IVPB 2 g (premix)Clotrimazole (5 sources)Azole AntifungalClotrimazole Not-TakingClotrimazole ActiveDorzolamide HCl-Timolol Mal (5 sources)Dorzolamide HCl-Timolol Mal Not-TakingDorzolamide HCl-Timolol Mal Activefamotidine 40 mg oral tablet (20 sources)Histamine-2 Receptor AntagonistStart: 07-05-2025 End: 15-35-1551cdso 1 tablet by mouth in the morning, [...] ) Complies with drug therapyStart: 08-25-2023 End: 28-73-5356vniooxedmo (PEPCID) 40 mg tablet Take 40 mg by mouth. 01/07/2024 ActiveStart: 12-79-2690xwve 1 tablet by mouth in the morningfamotidine (Pepcid) 20 MG tablet Take 20 mg by mouth in the morning. 0 03/05/2023 Dkpohh03 ml glucose 500 mg/ml prefilled syringe (1 source)Start: 2020 End: 97-18-2688iflwxxws 50 % in water (D50W) syringe 50 mLStart: 2020 End: 13-13-8372xgndenyw 50 % in water (D50W) syringe 50 mL1 ml heparin sodium, porcine 5000 unt/ml injection (3 sources)Unfractionated Heparin, Anti-coagulantStart: 11-08-2020 End: 73-32-1491gjvjtyy (porcine) injection 5,000 UnitsStart: 11-05-2020 End: 60-19-7607bhixye 5000 [IU] by subcutaneous injection every eight hours5,000 Units, Subcutaneous, Every 8 hours scheduled, First dose on Wed11/05/20 at 2200 Notify physician if patient refuses.1 ml HYDROmorphone hydrochloride 1 mg/ml injection (1 source)Opioid AgonistStart: 11-08-2020 End: 63-38-6376VIGNUteboayos (DILAUDID) injection 1 mgStart: 11-08-2020 End: 87-20-7879IONFVcjpsgemd (DILAUDID) injection 1 mgInsulin Aspart U-100 (Novolog Flexpen U-100 Insulin) 100 unit/mL (3 mL) Insulin Pen (3 sources)Start: 01-18-2020 End: 79-51-2818Zvcsujk Aspart U-100 (Novolog Flexpen U-100 Insulin) 100 unit/mL (3 mL) Insulin Pen Discontinued 0 UNIT SUBCUT As Directed January 18, 2020 1:00am May 09, 2024 2:20pm per sliding scaleStart: 46-99-0443Kdnenqb Aspart U-100 (Novolog Flexpen U-100 Insulin) 100 unit/mL (3 mL) Insulin Pen Active 0 UNIT SUBCUT As Directed January 18, 2020 1:00am per sliding scaleInsulin Glargine (Lantus U-100 Insulin) 100 unit/mL Solution (3 sources)Start: 01-18-2020 End: 02-41-8424ijrkvn 28 [IU] by subcutaneous injection once daily at bedtime Insulin Glargine (Lantus U-100 Insulin) 100 unit/mL Solution Discontinued 28 UNIT SUBCUT Daily at bedtime January 18, 2020 1:00am May 09, 2024 2:20pm Start: 03-31-6160erjhnt 28 [IU] by subcutaneous injection once daily at bedtime Insulin Glargine (Lantus U-100 Insulin) 100 unit/mL Solution Active 28 UNIT SUBCUT Daily at bedtimeFebr2019 1:00aminsulin isophane, human 100 unt/ml injectable suspension (13 sources)Start: 07-09-2025 End: 74-62-7434efjcank NPH (HumuLIN N,NovoLIN N) 100 unit/mL injection Indications: Type 2 diabetes mellitus with foot ulcer, with long-term current use of insulin ([facility] 38 units in the morning and 40 units at nighttime 10 mL 3 08/10/2025 09/21/2025 DiscontinuedStart: 12-08-6328Yvkatdc Nph Isoph U-100 Human (Novolin N Nph U-100 Insulin) 100 unit/mL suspension Active 38 UNIT SUBCUT Bedtime July 09, 2025 12:00am Complies with drug therapy3 ml insulin lispro 100 unt/ml pen injector (20 sources)Insulin AnalogStart: 03-04-2025 End: 91-42-9847sxoxpmc lispro (ADMELOG SOLOSTAR U-100 INSULIN) 100 unit/mL insulin pen Indications: Type 2 diabetes mellitus with foot ulcer, with long- term current use of insulin ([facility]) 70-150 0 units 151-174 2units 175-199 4 units 200-224 6 units 225-249 8 units 250-274 10 units 275-299 12 units 300-350 14 units >350 16 units and call provider 15 mL 04/26/2025 05/10/2025 DiscontinuedStart: 11-06-2020 End: 51-18-2026wptyanb lispro (HumaLOG) 100 unit/mL injection Sliding scale before meals: BG 150-200 = +1 unit Humalog, 201-250=+2 Units Humalog, 251-300=+3 Units Humalog, 301-350= +4 Humalog, >351 =+5 units Humalog . 10 mL 0 11/20/2020 ActiveLidocaine (2 sources)Antiarrhythmic, Amide Local AnestheticStart: 11-19-2020 End: 96-95-6846bwsi 1 mL intradermal route every twenty-four hours as needed lidocaine 10 mg/mL (1 %) injection 1 mLStart: 11-06-2020 End: 67-10-5530hanemmgus 10 mg/mL (1 %) injection - ADS [...] 40 mg/ml injection (1 source)Start: 11-12-2020 End: 86-96-2481rukydiqso sulfate 2 g in sterile water (SW) 50 mL IVPBmetFORMIN hydrochloride 1000 mg oral tablet (20 sources)BiguanideStart: 01-18-2020 End: 54-42-4362xthp 1 tablet by mouth twice dailyMetformin 1,000 mg tablet Discontinued 1000 MG PO Twice daily January 18, 2020 1:00am January 07, 2024 12:05pmmetFORMIN HCl Activemetoclopramide 15 mg/actuat nasal spray (4 sources)Dopamine-2 Receptor AntagonistStart: 04-10-2025 End: 57-78-3031vylokujnqdsuri HCl (GIMOTI) 15 mg/spray spray with pump Administer 1 spray into each nostril in themorning and 1 spray at noon and 1 spray in the evening and 1 spray before bedtime. 04/10/2025 04/26/2025 DiscontinuedStart: 76-16-9270cgmmqzckijjoza HCl (GIMOTI) 15 mg/spray nasal spray Indications: Diabetic gastroparesis (HCC) Use 1spray in the nose four times daily. 9.8 mL 2 04/10/2025 ActiveStart: 11-13-2020 End: 62-49-9949gkrybrfwsofpzd (REGLAN) injection 10 mgnaloxone (NARCAN) injection 0.1 mg (1 source)Start: 11-07-2020 End: 62-47-6437sqvbtwjs (NARCAN) injection 0.1 mgomeprazole 40 mg delayed release oral capsule (14 sources)Proton Pump InhibitorStart: 08-25-2022 End: 98-99-0776Ywiyywatqx 40 MG 1 capsule 30 minutes before morning meal and evening meal Orally twice a day for 30 day(s) Aug, Not-Taking2 ml ondansetron 2 mg/ml injection (1 source)Serotonin-3 Receptor AntagonistStart: 11-05-2020 End: 27-07-9610dpuf 4 mg intravenous route every six hours as needed4 mg, Intravenous, Every 6 hours PRN, nausea, vomiting, Starting 11/05/20 at 1920 pantoprazole 40 mg delayed release oral tablet (20 sources)Proton Pump InhibitorStart: 08-25-2023 End: 16-70-4277dcmz 1 tablet by mouth in the morningpantoprazole (PROTONIX) 40 mg EC tablet Indications: Gastroesophageal reflux disease, unspecified whether esophagitis present Take 1 tablet (40 mg total) by mouth in the morning. 90 tablet Discontinued (Alternate therapy)Start: 02-02-2020 End: 32-42-5515vhpz 1 tablet by mouth in the morningpantoprazole (PROTONIX) 40 mg EC tablet Indications: Gastroesophageal reflux disease, unspecified whether esophagitis present Take 1 tablet (40 mg total) by mouth in the morning. 90 tablet 5Activepiperacillin 3000 mg / tazobactam 375 mg injection (1 source)Penicillin-class Antibacterial, beta Lactamase InhibitorStart: 11-05-2020 End: 34-47-3511wfan 3.375 g intravenous route every eight hourspiperacillin- tazobactam (ZOSYN) IVPB 3.375 g (premix)100 ml potassium chloride 0.2 meq/ml injection (7 sources)Start: 11-16-2020 End: 96-44-6037zaph 20 mEq intravenous route every two hourspotassium chloride 20 mEq in 100 mL IVPBStart: 11-12-2020 End: 70-09-4125aplklurgr chloride 20 mEq in 100 mL IVPBStart: 11-09-2020 End: 19-90-4425slvx 20 mEq intravenous route every two hourspotassium chloride 20 mEq in 100 mL IVPBStart: 11-06-2020 End: 89-01-2913kjcovxvje chloride SA (K-DUR,KLOR-CON) CR tablet 40 mEqStart: 11-05-2020 End: 10-51-5549sjjzxyaai chloride SA (K-DUR,KLOR-CON) CR tablet 20 mEqpotassium phosphate 30 mmol in sodium chloride 0.9 % (NS) 250 mL IVPB (1 source)Start: 11-05-2020 End: 63-79-6338pxvproige phosphate 30 mmol in sodium chloride 0.9 % (NS) 250 mL YYBQ920 ml sodium chloride 9 mg/ml prefilled syringe (4 sources)Start: 11-19-2020 End: 91-69-1637nsbbnm chloride (PF) (NS) flush 10 mLStart: 11-08-2020 End: 31-71-6764goqkav chloride 0.9% (NS)Start: 11-06-2020 End: 37-32-4630porasr chloride 0.9% (NS) bolus 2,000 mLsodium chloride (PF) (NS) 0.9 % contrast line flush 10 mL (1 source)Start: 11-05-2020 End: 18-99-4965luwhfp chloride (PF) (NS) 0.9 % contrast line flush 10 mLsodium phosphate, dibasic 59.3 mg/ml / sodium phosphate, monobasic 161 mg/ml enema (1 source)Start: 11-16-2020 End: 67-61-7946dzwlxa phosphates (FLEETS ADULT) 19-7 gram/118 mL enema 1 each technetium (Tc-99m) (SULFUR COLLOID) solution 1 millicurie (1 source)Start: 11-13-2020 End: 40-88-0689gnkgizuwwl (Tc-99m) (SULFUR COLLOID) solution 1 millicurie traMADol hydrochloride 50 mg oral tablet (1 source)Opioid AgonistStart: 11-07-2020 End: 79-10-2148otyLPPgP (ULTRAM) tablet 50 mgStart: 11-07-2020 End: 33-44-9737hauZWUeJ (ULTRAM) tablet 50 mgvancomycin (VANCOCIN) 1500 mg in sodium chloride 0.9% (NS) 500 mL IVPB (1 source)Start: 11-05-2020 End: 11-01-6156mogy 1500 mg intravenous route every twenty-four hoursvancomycin (VANCOCIN) 1500 mg in sodium chloride 0.9% (NS) 500 mL IVPB Problems Active Problems Problem ClassificationProblemDateDocumented DateEpisodic/ChronicAbdominal pain (13 sources)Epigastric pain; Translations: [Epigastric pain]57-26-0551Ulrpojxz Administrative/social admission (1 source)Dietary counseling and surveillanceEpisodicAnxiety disorders (3 sources)Generalized anxiety disorder; Translations: [Generalized anxiety disorder]Onset: 523410-04-0116NnrbdhzUugywqfbw infection; unspecified site (1 source)Infection by methicillin sensitive Staphylococcus aureus; Translations: [MSSA (methicillin susceptible Staphylococcus aureus) infection] EpisodicChronic ulcer of skin (20 sources)Non-pressure chronic ulcer of other part of right foot with fat layer exposed; Translations: [Ulcerof other part of foot]Onset: 03-21-2021 42-36-0260VcddsffWkxybhkyzp associated with dizziness or vertigo (4 sources)Dizziness and giddiness; Translations: [DIZZINESS AND GIDDINESS] Onset: 85-12-6366YbjoltguCzryvxjf mellitus with complications (20 sources)Type 2 diabetes mellitus with hyperglycemia; Translations: [Type II diabetes mellitus uncontrolled]Onset: 838703-51-9799PufogbbJcwyyyng mellitus without complication (20 sources)Type 2 diabetes mellitus; Translations: [Type 2 diabetes mellitus without complications]Onset: 423196-96-4203PcnylldSddinml on above:Problem List clean-up per request of Phys. EHR CmteDisorders of lipid metabolism (20 sources)Hyperlipidemia; Translations: [Hyperlipidemia, unspecified]Onset: 71-63-7865LreyrvdYdoufbkgvk disorders (20 sources)Gastroesophageal reflux disease; Translations: [Gastro-esophageal reflux disease without esophagitis]Onset: 10-74-4812LhxavtcGjaykbq on above: Problem List clean-up per request of Phys. EHR CmteEssential hypertension (20 sources)Hypertensive disorder; Translations: [Essential (primary) hypertension]Onset: 15-94-8733BzzywjrDcutzhvfp arthritis and osteomyelitis (except that caused by tuberculosis or sexually transmitted disease) (20 sources)Acute osteomyelitis of foot; Translations: [Chronic osteomyelitis of foot with draining sinus]Onset: 174330-39-9654CvmxygjUyhjjteze arthritis and osteomyelitis (except that caused by tuberculosis or sexually transmitted di sease) (5 sources)Subacute osteomyelitis of left foot; Translations: [Subacute osteomyelitis of left foot (HCC)]Nausea and vomiting (20 sources)Nausea and vomiting; Translations: [Nausea with vomiting, unspecified]Onset: 62-26-1786XvequrbvVqamktfhbqp deficiencies (1 source)Vitamin D deficiency; Translations: [Vitamin D deficiency, unspecified]Onset: 981698-71-9288AgdjnivCqcdwvoqc or stenosis of precerebral arteries (9 sources)Bilateral carotid artery occlusion; Translations: [Occlusion and stenosis of bilateral carotid arteries]Onset: 436404-22-4579KtjwblwOygkh acquired deformities (1 source)Retrolisthesis; Translations: [Spondylolisthesis, site unspecified] Onset: 777541-79-7042ZjqqzgquAebbf aftercare (1 source)termite helper (current) use of oral hypoglycemic drugs; Translations: [MANAGER PROVIDER RELATIONS USE ORAL HYPOGLYCEMIC DX]Onset: 76-13-6597LuyyqfknWtonu aftercare (1 source)Encounter for therapeutic drug level monitoring; Translations: [ENC THERAPEUTC DRUG LEVL MONITORING]Onset: 67-03-8232CzkkrffoHyyqv aftercare (1 source)Other termite treater (current) drug therapy; Translations: [OTH RETIREMENT CURRENT DRUG THERAPY]Onset: 64-82-8376JkdmfbpfCwlcl aftercare (8 sources)Long-term current use of insulin; Translations: [termite helper (current) use of insulin]75-89-1696CftrjbfeZjqns aftercare (2 sources)Wound finding; Translations: [Encounter for other specified aftercare]45-19-7935OddyvzolRobne bone disease and musculoskeletal deformities (1 source)Amputated foot; Translations: [Acquired absence of left foot]Onset: 069874-79-2367TekmcyoXffha bone disease and musculoskeletal deformities (20 sources)History of amputation of right foot; Translations: [Acquired absence of right foot]Onset: 074214-53-6969FypcdjyNgffj bone disease and musculoskeletal deformities (1 source)Acquired absence of right foot; Translations: [Acquired absence of right foot]Onset: 47-78-0565AwnnpevZmkbk disorders of stomach and duodenum (3 sources)Gastroparesis; Translations: [Gastroparesis]Onset: 08-39-3764Dfwbmvrs Other disorders of stomach and duodenum (7 sources)Gastroparesis syndrome; Translations: [Gastroparesis]05-20-2025 EpisodicOther liver diseases (20 sources)Fatty (change of) liver, not elsewhere classified; Translations: [Other chronic nonalcoholic liver disease]Onset: 595703-04-8098Cjcrdpg Other liver diseases (5 sources)Steatosis of liver; Translations: [Fatty (change of) liver, not elsewhere classified]44-74-5422KhkfzrkKmdrl liver diseases (14 sources)Alkaline phosphatase raised; Translations: [Abnormal levels of other serum enzymes]Onset: 057228-43-4652PggfwnxkFhrcf nervous system disorders (5 sources)Peripheral nerve disease ; Translations: [Polyneuropathy, unspecified]55-87-1095PcojbjkKexog nervous system disorders (2 sources)Other chronic pain; Translations: [Other chronic pain]Onset: 29-01-0353YuqqidzSohap nervous system disorders (1 source)Abnormal gait; Translations: [Unspecified abnormalities of gait and mobility]Onset: 900695-80-3517WzdnxajaIxrne non-traumatic joint disorders (2 sources)Charcot arthropathy of joint of ankle; Translations: [Charcot's joint of ankle, unspecified laterality]ChronicOther non-traumatic joint disorders (20 sources)Charcot's joint of foot; Translations: [Charcot's joint, left ankle and foot]Onset: 091389-41-4756UpuvgzrYxrtx nutritional; endocrine; and metabolic disorders (3 sources)Obese class II; Translations: [Body mass index (BMI) 36.0-36.9, adult]ChronicOther nutritional; endocrine; and metabolic disorders (1 source)Body mass index (BMI) 36.0-36.9, adultChronicOther nutritional; endocrine; and metabolic disorders (1 source)Hypoproteinemia; Translations: [Other disorders of glycoprotein metabolism]Onset: 349011-04-3776PdwiejtFogfh nutritional; endocrine; and metabolic disorders (1 source)Hypocalcemia; Translations: [Hypocalcemia]Onset: 657707-90-1497 ChronicOther nutritional; endocrine; and metabolic disorders (8 sources)Body mass index 30+ - obesity; Translations: [Obesity, unspecified] Onset: 951139-66-2626LohbomdTbjht skin disorders (1 source)Atrophic disorder of skin, unspecifiedEpisodicOther upper respiratory disease (1 source)Chronic rhinitis; Translations: [Chronic rhinitis]Onset: 04-14-2023 96-84-1282ZahghnkXfhmhchtjx and visceral atherosclerosis (20 sources)Peripheral vascular disease, unspecified; Translations: [Peripheral vascular disease, unspecified]Onset: 929741-32-6485SugkvpkBlplivrz codes; unclassified (1 source)Family history of cardiac disorder; Translations: [Family history of ischemic heart disease and other diseases of the circulatory system]Onset: 765017-52-4589JyukzgxsTnhwjzt detachments; defects; vascular occlusion; and retinopathy (5 sources)Retinal disorder; 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] 47-47-7067ZrcmqfcPhercerbxuk; intervertebral disc disorders; other back problems (20 sources)Chronic low back pain; Translations: [Chronic midline low back pain without sciatica]Onset: 877721-70-5651HkeefvrtJstmnmoyvbpj (2 sources)DXOnset: 29-14-8205Wegnnqaytyxu (1 source)New PatientOnset: 55-78-2199Zqeqcqcmlyfz (6 sources)FU PRNUnclassified (2 sources)Low back pain, unspecified; Translations: [Low back pain, unspecified]Onset: 57-15-3684Ohfbcrvbjmxh (1 source)Wound CheckOnset: 48-91-4513Mfmwjfqvhuyb (1 source)Wound on FootOnset: 66-42-6750Cdgvznghfygm (1 source)transitonal care visitOnset: 61-31-5310Yqfvpggeepbh (1 source)Establish CareOnset: 04-26-2025 Past or Other Problems Problem ClassificationProblemDateDocumented DateEpisodic/ChronicDiabetes mellitus without complication (3 sources)Hyperglycemia; Translations: [Hyperglycemia, unspecified]Onset: 151375-80-8382CladigscXwtodigs of upper limb (1 source)Closed multiple fractures of hand bones; Translations: [Unspecified fracture of unspecified wrist and hand, initial encounter for closed fracture] Onset: 852998-11-6079LwfemzhiOwspqtg and fatigue (3 sources)Fatigue; Translations: [Other fatigue]Onset: EpisodicMood disorders (20 sources)Mood disordersOnset: 02-07-2021 Resolved: Open wounds of extremities (20 sources)Open wound of foot with complication; Translations: [Unspecified open wound, left foot, initial encounter]Onset: 831273-95-1544Jnrpdlkz Other aftercare (4 sources)termite helper (current) use of insulin; Translations: [MANAGER PROVIDER RELATIONS CURRENT USE OF INSULIN]Onset: 68-62-3270YzemarlqHirdm aftercare (2 sources)Encounter for other specified aftercare; Translations: [Encounter for other specified aftercare]Onset: 33-08-8750EsucwnloKkhwp non-traumatic joint disorders (20 sources)Instability of joint of right ankle; Translations: [Other instability, right ankle]Onset: 997720-11-1267JezklexbNpjhg screening for suspected conditions (not mental disorders or infectious disease) (4 sources)Patient encounter status; Translations: [Encounter for screening for malignant neoplasm of colon]Onset: 963707-74-6641AeombjitYbkdv skin disorders (1 source)Corns and callosities; Translations: [Corns and callosities]Onset: 09-85-6396TnfcbbqwBzseaoacyq (except in labor) (20 sources)Sepsis; Translations: [Sepsis, unspecified organism]Onset: 02-07-2021 Resolved: 275163-58-5537UqatlmenAmtt and subcutaneous tissue infections (3 sources)Cutaneous abscess of left foot; Translations: [Cellulitis]Onset: 690421-37-8087RecpxzsgRobaqxisgalo (3 sources)Open wound of left jbov53-80-7991 Results Test NameValueInterpretationReference RangeFacilityPOCT Hemoglobin A1con 90-38-3460IQO Target < 8YeMem[facility] BnvxdeNbG4u (Bld) [Mass fraction]9.0 %Abnormal4 - 7 %[facility] SystemInterpretation and review of laboratory resultsAbnormalProCommunity Regional Medical Center SystemProCommunity [facility] Medical Center SystemCT angio neckon 78-52-5207OL angio [place]TWIN [place] [address] [place] Scan Report Signed Patient: More Kingsley MR#: [id number] 125 : 1965 Acct:[id number] Age/Sex: 59 / M ADM Date: 08/22/25 Loc: CT Room: Type: [facility] Attending Dr: Cathy Leggett AVIONICS ELECTRICAL ENGINEER-C Copies to: Cathy Leggett APRN Ordering Provider: Cathy Leggett APRN Date of Service: 08/22/25 CT/CT angio head: I65.23 - Occlusion and stenosis of bilateral carotid ney... ([id number]) CT/CT angio neck: I65.23 - Occlusion and [...] Kidd M.D. 08/22/2025 5:14 PM Dictation Location: [place] [address] Transcribed By: AMBER 08/22/251713 Dictated By: Blair Kidd II, MD 08/22/251703 Signed By: 08/22/251713NoCarePart[facility] Rehabilitation Hospital Physician GroupISTAT XRay CREon 57-89-6530GVNIH GFR>60.0NoCarePartners Rehabilitation Hospital Physician GroupComment on above:Result Comment: PERFORMED BY: [place] [address] PATHOLOGIST CHIEF PROJECTIONIST CHE TAVARES M.D.Performed By: #### ISCRE #### [place] [address] USANo Panel InformationOrdered By: Cathy Leggett on 61-71-2702Kkyuioq Estimated GFR (eGFR)> 60.0[facility] Whole blood creatinine measurementOrdered By: Cathy Leggett on 08-22-2025 Creatinine [Mass/Vol]1.3 mg/dL0.6-1.3FBerger HospitalComment on above:ER/ESD physician is notified/shown all ISTAT results.Critical values may be confirmed by laboratorytesting ifdeemed necessary by ER attending doctor. Result Comment: ER/ESD physician is notified/shown all ISTAT results. Critical values may be confirmed by laboratory testing if deemed necessary by ER attending doctor.Performed By: #### ISCRE #### [facility] [address] [place] [address] USALIPID PROFILEon 18-50-4927Qqzwhlewimp [Mass/Vol]198 mg/dL Rfpckc503-489HveKoevorDallas Medical CenterComment on above:Performed By: #### CBCA, CMP #### [facility] ([id number]) [address] [place] [address] 74242Pwzjdnysklk in HDL [Mass/Vol]34 mg/dLLow>39ProDallas Medical CenterComment on above:Result Comment: HDL <40 mg/dL - High Risk HDL > or = 40mg/dL- Desirable HDL >60 mg/dL - Negative RiskPerformed By: #### CBCA, CMP #### [facility] ([id number]) [address] [place] [address] 16998Lzcsromruud in LDL [Mass/Vol]128 mg/dLNormal<130ProDallas Medical CenterComment on above:Result Comment: LDL <100 mg/dL - Desirable LDL >160 mg/dL - High RiskPerformed By: #### CBCA, CMP #### [facility] ([id number]) [address] [place] [address] 77893ZRPJEZGZTTW:HDL5.8High1.0-5.0ProDallas Medical CenterComment on above:Performed By: #### CBCA, CMP #### [facility] ([id number]) [address] [place] [address] 22886Hwwlmabkwwdg [Mass/Vol]179 mg/pMRdmo63-885WvaEjskxq Leopold HospitalComment on above:Performed By: #### CBCA, CMP #### [facility] ([id number]) [address] [place] [address] 94331EGFQ LOW SQGTUBIAGPH61 mg/dLHigh0-30[facility] Comment on above:Performed By: #### CBCA, CMP #### [facility] ([id number]) [address] [place] [address] 35634Ndaophsduwfd 78-95-6421Eugpztitsl Clr Calc Lfjvykzv31.67Normal [facility] Physician GroupComment on above:Result Comment: PERFORMED BY: [place] [address] PATHOLOGIST CHIEF PROJECTIONIST CHE TAVARES M.D.Performed By: #### BUN, CREAT #### [facility] [address] [place] [address] USAGFR/1.73 sq M.predicted MDRD (S/P/Bld) [Vol rate/Area] 57.276 mL/min/{1.73_m2}NormalThe [facility] Hope Hospital Physician [facility] MeridianComment on above: Performed By: #### BUN, CREAT #### [place] [id number] USACreatinine [Mass/volume] in Serum or PlasmaOrdered By: Chan Quintanilla on 88-28-7262Zoqiuuobjr [Mass/Vol]1.42 mg/dLHigh0.70-1.30 [facility] CenterComment on above:Performed By: #### BUN, CREAT #### [facility] [address] [place], [place] [id number] USANo Panel InformationOrdered By: Chan Quintanilla on 10-09-8393Mkimaflpv GFR (CKD-EPI)57.276 mL/MinLakehealth Tripoint [facility] Center [facility] Creatinine Clearance (Chem72.67[facility] Medical CenterUrea nitrogen [Mass/volume] in Serum or PlasmaOrdered By: Chan Quintanilla on 72-41-4372Pjzw nitrogen [Mass/Vol]26 mg/dLHigh7-25[facility] Medical CenterComment on above:Performed By: #### BUN, CREAT #### [facility] [address] [place] [id number] USAUS UNI ankle/arm indiceson 46-38-1068CG UNI ankle/arm indicesKnox Community Hospital [facility] [address] [place] [address] Ultrasound Report Signed Patient: More Kingsley MR#: [id number] 125 : 1965 Acct:[id number] Age/Sex: 59 / M ADM Date: 06/28/25 Loc: [facility] Room: Type: [facility] Attending Dr: Chan Quintanilla MD [...] Quintanilla MD,FACS,FSVS 07/04/2025 1:41 PM Dictation Location: [place] [address] Tech: Soraida Tez Transcribed By: PWS 07/04/25 1341 Dictated By: Chan Quintanilla MD 07/04/25 1341 Signed By: 07/04/25 1341[facility] Physician GroupXR FOOT RT MIN 3 VWS WEIGHT BEARINGon 49-08-0522XD FOOT RT MIN 3 VWS WEIGHT BEARINGXR FOOT RT MIN 3 VWS WEIGHT BEARING XR FOOT RT MIN 3 VWS WEIGHT BEARING HISTORY: Right foot ulcer, with unspecified severity ([facility]). COMPARISON: 03/04/2025 IMPRESSION: Unchanged indication about the metatarsals. Progressive sclerosis and irregularity of the plantar aspect remnant tarsal/metatarsal are nonspecific, infection is possible. Correlate for associated soft tissue injury, consider MR, as appropriate. Plantar and Achilles calcaneal enthesophytes. Vascular calcifications. Finalized by Thomas Schrader MD on 06/12/2025 2:05 [facility] HospitalAR GENERIC XHHJ RESULTSEE NOTEAbnormalCrystal Clinic Orthopedic CenterComment on above:Result Comment: Test name Result Flag Units RefIntvl Testosterone, Total by Garnett Mechanic 234.3 L ng/dL 300.0-890.0 This test was developed and its performance characteristics determined by [facility]. It has not been cleared or approved [...] Children, or Individuals on Testosterone-Suppressing Hormone Therapy) (Be[employer] test code 4421748). For individuals on testosterone hormone therapy, refer to cisgender male reference intervals. No reference intervals have been established for males younger than 18 years or for cisgender females. For a complete set of all established reference intervals, refer to [employer]td[employer]Tests/Pub/3877331. This test was developed and its performance characteristics determined by [facility]. It has not been cleared or approved by the [place] Food and Drug Administration. This test was performed in a CLIA certified laboratory and is intended for clinical purposes. Performed By: [facility] [address] [place] [address] Director Video: Warren Simmons MD, PhD CLIA Number: [id number] By: #### ARELY, CMP #### [facility] ([id number]) [address] [place] [address] 58411KNZUBLUMMks 12-36-5518Vlezmdvws [Mass/Vol]2.0 mg/dLNormal 1.8-2.6[facility]opedic CenterComment on above:Performed By: #### ARELY, CMP #### [facility] ([id number]) [address] [place] [address] 50294TBRIGNMTX SPECIFIC ANTIGEN SCREENon 21-56-6359BONEAALHZ SPEC ANT0.86 ng/mLNormal0.00-4.00ProDallas Medical CenterComment on above:Result Comment: The method used for this test is Bombfell DXI chemiluminescent immunoassay. Values obtained by different assay methods cannot be used interchangeably.Performed By: #### ARELY, CMP #### [facility] ([id number]) [address] [place] [address] 13382UNABRGQQBQEL, TOTAL AND FREE, Son 50-42-5346VRIZCKDNBCLW, TOTAL AND FREE, STESTF TESTOSTERONE, TOTAL AND FREE, S CancelledNormalProDallas Medical CenterVITAMIN B12on 28-32-3224Fomiojvtw (Vitamin B12) [Mass/Vol]1009 pg/rLAqgc618-448SrqVuhriv [facility] HospitalComment on above:Performed By: #### ARELY, CMP #### [facility] ([id number]) [address] [place] [address] 21286DPZLBSD D 25 HYDROXYon 76-34-2485IGYXOQR D 25 HYD TOT84.2 ng/mL Awbhpw45.0-100.0ProDallas Medical CenterComment on above:Order Comment: Vitamin D status 25 [place] Vitamin D Deficiency <20 ng/mLInsufficiency 20-29 ng/mLSufficiency 30-100 ng/mLToxicity >100 ng/mLNOTE: A pediatric reference range has not been established by the instructional material director of this kit. The [place] [employer] recommends a Vitamin D level of = or >20ng/mL in infants and children.Performed By: #### CBCA, CMP #### [facility] ([id number]) [address], [place], [place] [address]TN SPINE LUMB COMP INCL BEND 6+ VWSon 58-19-0446ZA SPINE LUMB COMP INCL BEND 6+ VWSXR [...] Vivien Feliz MD on 05/04/2025 3:25 PMNormalProMedica [facility]low [facility] Hospital WITH AUTO DIFFERENTIALon 18-17-0130LPRPJWFPV ABSOLUTE COUNT (10*3/UL) BY AUTOMATED COUNT0.1 10*3/uLNormal0.0-0.2[facility] Comment on above:Performed By: #### CBCA #### [facility] ([facility]) [address] [place] [address] VIRBASOPHILS RELATIVE PERCENT BY AUTOMATED COUNT1.3 %Normal ProMedicMills-Peninsula Medical CenterComment on above:Performed By: #### CBCA #### [facility] ([facility]) [address] [place] [address] VIRCELLAVISION DIFFERENTIAL TYPEAUTOMATED DIFFERENTIALNormal [facility] HospitalComment on above:Performed By: #### CBCA #### [facility] ([facility]) [address] [place] [address] VIREosinophils (Bld) [#/Vol]0.2 10*3/uLNormal0.0-0.4[facility]opedic CenterComment on above:Performed By: #### CBCA #### [facility] ([facility]) [address] [place] [address] VIREOSINOPHILS RELATIVE PERCENT BY AUTOMATED COUNT2.5 %Normal [facility] CenterComascension [facility] on above:Performed By: #### CBCA #### [facility] ([facility]) [address] [place] [address] VIRErythrocyte distribution width (RBC) [Ratio]15.2 %High 11.5-15[facility]opedic CenterComascension [facility] on above:Performed By: #### CBCA #### [facility] ([facility]) [address] [place] [address] VIRHematocrit (Bld) [Volume fraction]42.3 %Jfnglc16-04BauVhlncmCrystal Clinic Orthopedic CenterComment on above:Performed By: #### CBCA #### [facility] ([facility]) [address] [place] [address] VIRHemoglobin (Bld) [Mass/Vol]14.1 g/tNBexjqn28-98ZwlVjkotpCrystal Clinic Orthopedic CenterComascension [facility] on above:Performed By: #### CBCA #### [facility] ([facility]) [address] [place] [address] VIRLYMPHOCYTES ABSOLUTE COUNT (10*3/UL) BY AUTOMATED COUNT1.9 10*3/uLNormal1.0-3.5PSelect Medical Cleveland Clinic Rehabilitation Hospital, Edwin ShawComascension [facility] on above:Performed By: #### CBCA #### [facility] ([facility]) [address] [place] [address] VIRLYMPHOCYTES RELATIVE PERCENT BY AUTOMATED COUNT22.1 %Normal [facility] CenterComment on above:Performed By: #### CBCA #### [facility] ([facility]) [address] [place] [address] VIRMCH (RBC) [Entitic mass]27.5 phXdxcyk43-31OdlQynlgyDallas Medical CenterComment on above:Performed By: #### CBCA #### [facility] ([facility]) [address] [place] [address] VIRMCHC (RBC) [Mass/Vol]33.4 g/cBXqjpln26-65YtoYtlcdzDallas Medical CenterComment on above:Performed By: #### CBCA #### [facility] ([facility]) [address] [place] [address] VIRMCV (RBC) [Entitic vol]82 uXEkloms42-104KlhWwrivk Fremont HospitalComment on above:Performed By: #### CBCA #### [facility] ([facility]) [address] [place] [address] VIRMONOCYTES ABSOLUTE COUNT (10*3/UL) BY AUTOMATED COUNT0.9 10*3/uLNormal0.0-0.9[facility] CenterComascension [facility] on above:Performed By: #### CBCA #### [facility] ([facility]) [address] [place] [address] VIRMONOCYTES RELATIVE PERCENT BY AUTOMATED COUNT10.6 %Normal [facility]opedic CenterComment on above:Performed By: #### CBCA #### [facility] ([facility]) [address] [place] [address] VIRNEUTROPHILS ABSOLUTE COUNT BY AUTOMATED COUNT5.5 10*3/uL Normal1.5-6.6[facility]opedic CenterComascension [facility] on above:Performed By: #### CBCA #### [facility] ([facility]) [address] [place] [address] VIRNEUTROPHILS RELATIVE PERCENT BY AUTOMATED COUNT63.5 %Normal [facility]opedic CenterComment on above:Performed By: #### CBCA #### [facility] ([facility]) [address] [place] [address] VIRPlatelet mean volume (Bld) [Entitic vol]9.5 fLNormal7-12 [facility]opedic CenterComment on above:Performed By: #### CBCA #### [facility] ([facility]) [address] [place] [address] VIRPlatelets (Bld) [#/Vol]298 10*3/tOIcxljx885-026HizRumfbpCrystal Clinic Orthopedic CenterComment on above:Performed By: #### CBCA #### [facility] ([facility]) [address] [place] [address] VIRRBC COUNT5.14 X10E12/LNormal4.1-5.7[facility] Orthopedic CenterComment on above:Performed By: #### CBCA #### [facility] ([facility]) [address] [place] [address] VIRWBC (Bld) [#/Vol]8.7 10*3/uLNormal4-11[facility] Orthopedic CenterComment on above:Performed By: #### CBCA #### [facility] ([facility]) [address] [place] [address] VIRCOMPREHENSIVE METABOLIC PANELon 35-53-0251Vgexjcj [Mass/Vol] 3.7 g/dLNormal3.2-5.3PSelect Medical Cleveland Clinic Rehabilitation Hospital, Edwin ShawComment on above:Performed By: #### CMP #### [facility] ([facility]) [address] [place] [address] VIRALP [Catalytic activity/Vol]102 U/BEjwxok85-821OsaAdkepmCrystal Clinic Orthopedic CenterComment on above:Performed By: #### CMP #### [facility] ([facility]) [address] [place] [address] VIRALT [Catalytic activity/Vol]14 U/LNormal<=40ProDallas Medical CenterComment on above:Performed By: #### CMP #### [facility] ([facility]) [address] [place] [address] VIRAnion gap [Moles/Vol]10 mmol/LNormal5-15ProDallas Medical CenterComment on above:Performed By: #### CMP #### [facility] ([facility]) [address] [place] [address] VIRAST [Catalytic activity/Vol]18 U/LNormal<=41ProDallas Medical CenterComment on above:Performed By: #### CMP #### [facility] ([facility]) [address] [place] [address] VIRBilirubin [Mass/Vol]0.9 mg/dLNormal0.3-1.2PSelect Medical Cleveland Clinic Rehabilitation Hospital, Edwin ShawComment on above:Performed By: #### CMP #### [facility] ([facility]) [address] [place] [address] VIRCalcium [Mass/Vol]9.6 mg/dLNormal8.5-10.5PSelect Medical Cleveland Clinic Rehabilitation Hospital, Edwin ShawComment on above:Performed By: #### CMP #### [facility] ([facility]) [address] [place] [address] VIRChloride [Moles/Vol]100 mmol/PKdjttj84-349ZmlUeffqqDallas Medical CenterComment on above:Performed By: #### CMP #### [facility] ([facility]) [address] [place] [address] VIRCO2 [Moles/Vol]22 mmol/NWnyxze00-30DawQfdzzvSelect Medical Cleveland Clinic Rehabilitation Hospital, Edwin ShawComment on above:Performed By: #### CMP #### [facility] ([facility]) [address] [place] [address] VIRCreatinine [Mass/Vol]1.61 mg/dLHigh0.60-1.30[facility] Orthopedic CenterComment on above:Result Comment: METHOD TRACEABLE TO IDMS STANDARDPerformed By: #### CMP #### [facility] ([facility]) [address] [place] [address] VIRGFR/1.73 sq M.predicted among non-blacks MDRD (S/P/Bld) [Vol rate/Area]49 mL/min/{1.73_m2}Low>=60ProDallas Medical CenterComment on above: Result Comment: Reported eGFR is based on the CKD-EPI 2020 equation that does not use a race coefficient.Performed By: #### CMP #### [facility] ([facility]) [address] [place] [address] VIRGlucose [Mass/Vol]323 mg/oUEslr64-55SkgLhtuxiDallas Medical CenterComment on above:Performed By: #### CMP #### [facility] ([facility]) [address] [place] [address] VIRPotassium [Moles/Vol]4.1 mmol/LNormal3.5-5.0ProDallas Medical CenterComment on above:Performed By: #### CMP #### [facility] ([facility]) [address] [place] [address] VIRProtein [Mass/Vol]8.9 g/dLHigh6.0-8.0[facility] Orthopedic CenterComment on above:Performed By: #### CMP #### [facility] ([facility]) [address] [place] [address] VIRSodium [Moles/Vol]132 mmol/JHic510-769WbcIsimybDallas Medical CenterComment on above:Performed By: #### CMP #### [facility] ([facility]) [address] [place] [address] VIRUrea nitrogen [Mass/Vol]28 mg/dLHigh5-23ProDallas Medical CenterComment on above:Performed By: #### CMP #### [facility] ([facility]) [address] [place] [address] VIRHEMOGLOBIN A1Con 85-07-7038Yhjtxap [Mass/Vol]283 mg/dLNormal ProMspringhill medical centera Mendocino Coast District HospitalComment on above:Performed By: #### HA1C #### [facility] ([facility]) [address] [place] [address] IHVPhA9r (Bld) [Mass fraction]11.5 %High4.4-5.6ProDallas Medical CenterComment on above:Result Comment: ADA Guidelines Result HgbA1c Normal : less than 5.7 % Prediabetes : 5.7 % to 6.4 % Diabetes : > 6.4 % Use with caution in patients with abnormal hemoglobin variants as the half-life of red blood cells and in vivo glycation rates are affected.Performed By: #### HA1C #### [facility] ([facility]) [address] [place] [address] VIRDebridementon 75-85-6109PxlnSCOTT Vaughn 04/24/2025 12:02 PM Debridement Performed by: SCOTT Vaughn Authorized by: SCOTT Vaughn Associated wounds: Wound 03/28/25 1 Diabetic Ulcer Foot Right;Plantar Consent: Consent obtained: Verbal and written Consent given by: Patient Risks discussed: Yes Debridement Details: Performed by: AVIONICS ELECTRICAL ENGINEER Type: Sharp Level: Subcutaneous Tissue, Devitalized tissue and other material debrided: Subcutaneous tissue, fibrin, biofilm and callus Anesthesia administration: topical Anesthesia: EMLA Total Surface Area Debrided cm^2: 7.26 Specimen Taken: None Instrument: Curette Amount of bleeding: Small Bleeding Control: Pressure Response to treatment: Procedure was tolerated well Tissue Applied?: NoMANUALLY TRANSCRIBED RESULTSSumma Health Akron CampusNo Panel Informationon 28-40-7642ZVBQUDP IN CLINIC TODAY.MANUALLY TRANSCRIBED RESULTSNo Panel InformationOrdered By: Sulma Humphreys on 49-05-6018TvcBaxsrqSumma Health Akron Campus NURSING PROGon 10-43-6069KUKWQJW PROGHNO ID: [id number] Author: ROBBIN CONTI RN Service: ? Author [...] same thing I was told. No instructions given.NormalSouthpointSaint Joseph's Hospital 63-85-2390GMZSKziujjwzp (GENSSP) MORE KINGSLEY JR. ([id number]) 1965 M Date Time Provider Department 04/18/25 JEROME DEL TORO GENVIKAS During your visit today, we recorded the following information about you: Tamara Goncalves RN 04/19/2025 8:06 AM Addendum G-POEM for date of service 04/25/2025. Appeal with all information including letter, study, JAMIN notes, GES result, EGG result, EGD result, CT result, faxed to [employer]/Appeals Dept at fax [phone] with confirmation. Appeal also mailed out to [employer]/Appeals Dept to the address provided. Copy placed in shared clinical office filing cabinet. Tamara Goncalves RN 05/03/2025 10:35 AM Addendum Email received from [place]/Pre-Access Denials Team: We are glad to inform you that your appeal was successfully overturned and CPT 76629 is now authorized and test needs to [...] Fully Assessed Reason for Visit: Care Coordination [8522] Cmt: Appeal for GPOEM denial Prescriptions as [...] (None) Encounter Status:Closed by TAMARA GONCALVES on 04/18/25[facility] [id number] (GENSSP) MORE KINGSLEY JR. ([id number]) 1965 M Date Time Provider Department 04/11/25 JEROME DEL TORO During your visit today, we recorded the following information about you: Jeremiah Stiles RN 04/11/2025 12:55 PM Signed PA for Gimoti initiated electronically through [facility] site with Anderson Code 2S6S26 started by [employer] at [phone] with fax# [phone]. Awaiting response [facility] [employer] ID# [id number] Rx Grp RXAETD Tiff Mejias LPN 04/11/2025 [...] PM PA for Gimoti initiated electronically through [facility] site with Anderson Code 2S6S26 started by [employer] at [phone] with fax# [phone]. Awaiting response [facility] [employer] ID# [id number] Rx Grp RXAETD >> MartinReba alejandrojaylenMATTY 04/11/2025 3:19 PM >> TIFF MEJIAS Wed April 11, 2025 3:19 PM Med approved thru 11/21/25 Problem List As Of Date: 04/11/2025 (None) Encounter Status:Closed by JEREMIAH STILES on 04/11/25[facility] [id number] Vaughn 04/11/2025 12:18 PM Debridement Performed by: SCOTT Vaughn Authorized by: SCOTT Vaughn Associated wounds: Wound 03/28/25 1 Diabetic Ulcer Foot Right;Plantar Consent: Consent obtained: Verbal and written Consent given by: Patient Risks discussed: Yes Debridement Details: Performed by: AVIONICS ELECTRICAL ENGINEER Type: Sharp Level: Subcutaneous Tissue, Devitalized tissue and other material debrided: Subcutaneous tissue, callus and fibrin Anesthesia administration: topical Anesthesia: EMLA Total Surface Area Debrided cm^2: 7.78 Specimen Taken: None Instrument: Curette Amount of bleeding: Medium Bleeding Control: Pressure Response to treatment: Procedure was tolerated well Tissue Applied?: NoMANUALLY TRANSCRIBED RESULTSRutland Regional Medical CenterBioSig Technologies SystemXeroform 4x4on 70-05-4895Vdkzpat in clinic todayMANUALLY TRANSCRIBED RESULTSLake County Memorial Hospital - WestSlickLogin SystemACETYLCHOLINE REC BINDING ABon 51-43-2873EMNXNKJEEXEDZ BINDING, QUALNegativeNormalNegativeSoutlyman school for boyse HospitalComment on above:Order Comment: Specimen Type: BLOOD SPECIMEN Ordering Facility: [facility] Address: [address] [place], [place] [address]Result Comment: Anti-acetylcholine receptor binding antibody test is used as an aid in diagnosis ofmyasthenia gravis. A negative result cannot exclude myasthenia gravis. Clinical correlation is required.Performed By: #### ACHRAB #### [facility] CLIA [id number] [address] [place] [address] [place] [address] [place] AMERICAAcetylcholine receptor binding Ab (S) [Moles/Vol]<0.02Normal<0.21[facility]pointe HospitalComment on above: Order Comment: Specimen Type: BLOOD SPECIMEN Ordering Facility: [facility] Address: [address] [place], [place] [address]Performed By: #### ACHRAB #### [facility] CLIA [id number] [address] [place], [place] [address] [place] AMERICAAMINO ACIDS, PLASMA W/ CONSULTATIONon 10-77-6575Zvhjpzm [Moles/Vol]412 umol/QMeddjt351-834Kzedrhctbot HospitalComment on above:Order Comment: Specimen Type: BLOOD SPECIMEN Ordering Facility: [facility] Address: [address] [place], [place] [address]Performed By: #### PAABI #### [facility] CLIA [id number] [address] [place] [address] [place] AMERICAAlloisoleucine [Moles/Vol]<2 Normal0-2Sthe rehabilitation institute of st. louis HospitalComment on above:Order Comment: Specimen Type: BLOOD SPECIMEN Ordering Facility: [facility] Address: [address] [place], [place] [address]Performed By: #### PAABI #### [facility] CLIA [id number] [address] [place] [address] [place] AMERICAAlpha aminoadipate [Moles/Vol]<5Legvzt4-5Sktykybehpm HospitalComment on above:Order Comment: Specimen Type: BLOOD SPECIMEN Ordering Facility: [facility] Address: [address] [place], [place] [address]Performed By: #### PAABI #### [facility] CLIA [id number] [address] [place], [place] [address] [place] OF AMERICAAMINO ACID CONSULTATION, PLASMANormalSthe rehabilitation institute of st. louis HospitalComment on above:Order Comment: Specimen Type: BLOOD SPECIMEN Ordering Facility: [facility] Address: [address] [place], [place] [address]Result Comment: This plasma amino acid analysis is mainly notable for low levels of serine and glycine. Low levels of plasma serine and glycine is potentially related to the patient's clinical history ofdiabetes. Reference intervals from Jovani E, Pat MG, Amarjit MANDEEP, and Anderson DK: Biochemical Genetics: A Laboratory Manual, Copyright 1989 by [employer] Reference intervals not established for some amino acids. This test was developed and its performance characteristics determined by the [facility] Department of Pathology and Laboratory Medicine. It has not been cleared or approved by the FDA. The [facility] Department of Pathology and Laboratory Medicine is regulated under CLIA as qualified to perform high-complexity testing. This test is used for clinical purposes. It should not be regarded as investigational or for research.Performed By: #### PAABI #### [facility] CLIA [id number] [address] [place] [address] [place] OF AMERICAAMINO ACIDS REVIEW, PLASMA Reviewed by Forrest Gomez MD, Ph.D ([id number])[facility] on above:Order Comment: Specimen Type: BLOOD SPECIMEN Ordering Facility: [facility] Address: [address] [place], [place] [address]Performed By: #### PAABI #### [facility] CLIA [id number] [address] [place] [address] [place] AMERICAArginine [Moles/Vol]73 umol/ODaescd41-484TjfwhchifzfDoctors Hospital of Springfield on above:Order Comment: Specimen Type: BLOOD SPECIMEN Ordering Facility: [facility] Address: [address] [place], [place] [address]Performed By: #### PAABI #### [facility] CLIA [id number] [address] [place] [address] [place] AMERICAAsparagine [Moles/Vol]31 umol/BPej24-80Gkazlxrfked HospitalComment on above:Order Comment: Specimen Type: BLOOD SPECIMEN Ordering Facility: [facility] Address: [address] [place], [place] [address]Performed By: #### PAABI #### [facility] CLIA [id number] [address] [place] [address] [place] AMERICAAspartate [Moles/Vol]3 umol/LNormal1-25[facility]inte HospitalComment on above:Order Comment: Specimen Type: BLOOD SPECIMEN Ordering Facility: [facility] Address: [address] [place], [place] [address]Performed By: #### PAABI #### [facility] CLIA [id number] [address] [place] [address], [facility]95 [place] OF AMERICACitrulline [Moles/Vol]38 umol/EEftcix93-73Flkqnlgomfj HospitalComment on above:Order Comment: Specimen Type: BLOOD SPECIMEN Ordering Facility: [facility] Address: [address] [place], [place] [address]Performed By: #### PAABI #### [facility] CLIA [id number] [address] [place], [place] [address] [place] AMERICACystine [Moles/Vol]50 umol/L Normal5-82[facility]pointe HospitalComment on above:Order Comment: Specimen Type: BLOOD SPECIMEN Ordering Facility: [facility] Address: [address] [place], [place] [address]Performed By: #### PAABI #### [facility] CLIA [id number] [address] [place], [place] [address] [place] AMERICAGlutamate [Moles/Vol]82 umol/OIovkpz02-674Uprgbjzopuc HospitalComment on above:Order Comment: Specimen Type: BLOOD SPECIMEN Ordering Facility: [facility] Address: [address] [place], [place] [address]Performed By: #### PAABI #### [facility] CLIA [id number] [address] [place], [place] [address] [place] AMERICAGlutamine [Moles/Vol]478 umol/JWxfbsp723-302Rkpjgkispln HospitalComment on above:Order Comment: Specimen Type: BLOOD SPECIMEN Ordering Facility: [facility] Address: [address] [place], [place] [address]Performed By: #### PAABI #### [facility] CLIA [id number] [address] [place], [place] [address] [place] AMERICAGlycine [Moles/Vol]125 umol/BLad880-908Xpkasfekwig HospitalComment on above:Order Comment: Specimen Type: BLOOD SPECIMEN Ordering Facility: [facility] Address: [address] [place], [place] [address]Performed By: #### PAABI #### [facility] CLIA [id number] [address] [place], [place] [address] [place] AMERICAHistidine [Moles/Vol]53 umol/PMyj08-795Lglvudsrkae HospitalComment on above:Order Comment: Specimen Type: BLOOD SPECIMEN Ordering Facility: [facility] Address: [address] [place], [place] [address]Performed By: #### PAABI #### [facility] CLIA [id number] [address] [place], [place] [address] [place] AMERICAHydroxylysine [Moles/Vol]<2 High<=0Southpoint HospitalComment on above:Order Comment: Specimen Type: BLOOD SPECIMEN Ordering Facility: [facility] Address: [address] [place], [place] [address]Performed By: #### PAABI #### [facility] CLIA [id number] [address] [place], [place] [address] [place] AMERICAHydroxyproline [Moles/Vol] NormalSouthpointe HospitalComment on above:Order Comment: Specimen Type: BLOOD SPECIMEN Ordering Facility: [facility] Address: [address] [place], [place] [address]Result Comment: Unable to assay. Analytical difficultyPerformed By: #### PAABI #### [facility] CLIA [id number] [address] [place], [place] [address] [place] AMERICAIsoleucine [Moles/Vol]62 umol/AYmfrdl00-555Mfrsypbvrhk HospitalComment on above:Order Comment: Specimen Type: BLOOD SPECIMEN Ordering Facility: [facility] Address: [address] [place], [place] [address]Performed By: #### PAABI #### [facility] CLIA [id number] [address] [place] [address] [place] AMERICALeucine [Moles/Vol]109 umol/QNrukfb48-128Xsghwlpxoto HospitalComment on above:Order Comment: Specimen Type: BLOOD SPECIMEN Ordering Facility: [facility] Address: [address] [place], [place] [address]Performed By: #### PAABI #### [facility] CLIA [id number] [address] [place], [place] [address] [place] AMERICALysine [Moles/Vol]143 umol/L Wntjwe025-733Ktbzqszvgwq HospitalComment on above:Order Comment: Specimen Type: BLOOD SPECIMEN Ordering Facility: [facility] Address: [address] [place], [place] [address]Performed By: #### PAABI #### [facility] CLIA [id number] [address] [place], [place] [address] [place] AMERICAMethionine [Moles/Vol]19 umol/CZvclsm71-07Hqxallzmzhw HospitalComment on above:Order Comment: Specimen Type: BLOOD SPECIMEN Ordering Facility: [facility] Address: [address] [place], [place] [address]Performed By: #### PAABI #### [facility] CLIA [id number] [address] [place] [address], [place] [address] [place] AMERICAOrnithine [Moles/Vol]43 umol/YBvx79-756Cjnpfagnnbg HospitalComment on above:Order Comment: Specimen Type: BLOOD SPECIMEN Ordering Facility: [facility] Address: [address] [place], [place] [address]Performed By: #### PAABI #### [facility] CLIA [id number] [address] [place] [address] [place] AMERICAPhenylalanine [Moles/Vol]63 umol/XFsbtxq03-32Ylccwfoiqvx HospitalComment on above:Order Comment: Specimen Type: BLOOD SPECIMEN Ordering Facility: [facility] Address: [address] [place], [place] [address]Performed By: #### PAABI #### [facility] CLIA [id number] [address] [place] [id number] [place] AMERICAProline [Moles/Vol]237 umol/GPdgymc08-316Xdytramdnje HospitalComment on above:Order Comment: Specimen Type: BLOOD SPECIMEN Ordering Facility: [facility] Address: [address] [place], [place] [address]Performed By: #### PAABI #### [facility] CLIA [id number] [address] [place] [address], [place] [address] [place] AMERICASarcosine [Moles/Vol]<2High <=0[facility] HospitalComment on above:Order Comment: Specimen Type: BLOOD SPECIMEN Ordering Facility: [facility] Address: [address] [place], [place] [address]Performed By: #### PAABI #### [facility] CLIA [id number] [address] [place], [place] [address] [place] AMERICASerine [Moles/Vol]41 umol/L Ysy85-194Coupmkibhzd HospitalComment on above:Order Comment: Specimen Type: BLOOD SPECIMEN Ordering Facility: [facility] Address: [address] [place], [place] [address]Performed By: #### PAABI #### [facility] CLIA [id number] [address] [place], [place] [address] [place] AMERICATaurine [Moles/Vol]58 umol/L Skgxas07-120Uezljivcvzl HospitalComment on above:Order Comment: Specimen Type: BLOOD SPECIMEN Ordering Facility: [facility] Address: [address] [place], [place] [address]Performed By: #### PAABI #### [facility] CLIA [id number] [address] [place], [place] [address] [place] AMERICAThreonine [Moles/Vol]109 umol/NWuikbh04-161Iiyznpchmig HospitalComment on above:Order Comment: Specimen Type: BLOOD SPECIMEN Ordering Facility: [facility] Address: [address] [place], [place] [address]Performed By: #### PAABI #### [facility] CLIA [id number] [address] [place], [place] [address] [place] AMERICATyrosine [Moles/Vol]68 umol/RMythtj88-676Juozuawujvy HospitalComment on above:Order Comment: Specimen Type: BLOOD SPECIMEN Ordering Facility: [facility] Address: [address] [place], [place] [address]Performed By: #### PAABI #### [facility] CLIA [id number] [address] [place] [address] [place] AMERICAValine [Moles/Vol]227 umol/L Krdjge535-201Ejdjytjgjuq HospitalComment on above:Order Comment: Specimen Type: BLOOD SPECIMEN Ordering Facility: [facility] Address: [address] [place], [place] [address]Performed By: #### PAABI #### [facility] CLIA [id number] [address] [place] [address] [place] AMERICACARNITINE FREE AND TOTAL, PLASMAon [id number] [Moles/Vol]39.0 umol/HDiknsz85.0-53.0[facility] Comment on above:Order Comment: Specimen Type: BLOOD SPECIMEN Ordering Facility: [facility] Address: [address] [place], [place] [address]Performed By: #### CARNPL #### [facility] CLIA [id number] [address] [place] [address] [place] AMERICACarnitine [Moles/Vol]49.3 umol/EEptozi86.4-66.0SoHannibal Regional HospitalComment on above:Order Comment: Specimen Type: BLOOD SPECIMEN Ordering Facility: [facility] Address: [address] [place], [place] [address]Performed By: #### CARNPL #### [facility] CLIA [id number] [address] [place] [address] [place] AMERICACarnitine esters [Moles/Vol] 10.3 umol/LNormal3.0-15.6SoHannibal Regional HospitalComment on above:Order Comment: Specimen Type: BLOOD SPECIMEN Ordering Facility: [facility] Address: [address] [place], [place] [address]Performed By: #### CARNPL #### [facility] [place] [id number] [address] [place] [address] [place] AMERICACarnitine esters/Carnitine.free (C0) [Molar ratio]0.8Dnleed6.1-0.7SoHannibal Regional Hospital Comment on above:Order Comment: Specimen Type: BLOOD SPECIMEN Ordering Facility: [facility] Address: [address] [place], [place] [address]Result Comment: NOTE: The determination of the plasma [...] determined by the Pathology and Laboratory Medicine [facility] at the [facility]. The U.S. Food and Drug Administration has not approved or cleared this test, however, FDA clearance or approval is not currently required for clinical use.Performed By: #### CARNPL #### [facility] CLIA [id number] [address] AMERICACK SerPl-cCncon [id number] [Catalytic activity/Vol]41 U/YIrf34-996Jmiegznxngl HospitalComment on above: Order Comment: Specimen Type: BLOOD SPECIMEN Ordering Facility: [facility] Address: [address] [place], [place] [address]Performed By: #### 1988-5, 2157-6 #### [facility] [id number] [address] [place], [place] [address]CNOVon [id number] Office Visit (GENSSP) MORE KINGSLEY JR. ([id number]) 1965 M Date Time Provider Department 04/10/25 10:00 AM JEROME DEL TORO GENVIKAS During your visit today, we recorded the following information about you: Pulse Blood pressure Weight Height 101/minute 149/84 115 kg 1.778 m [place], [place] 04/10/2025 10:33 AM Signed What is [...] 10:33 AM Signed [facility] Gastroparesis/Dysmotility Consultation SERVICE DATE: 04/10/2025 SERVICE TIME: 10:04 AM PRIMARY CARE PHYSICIAN: No primary care provider on file. Imad Asanew [address] [address] My final recommendations will be communicated back [...] obtained. NAME: More Kingsley Jr. CLINIC NO: [id number] DATE OF SERVICE: April 10, 2025 This [...] in today for surgical (more content not included)...NormalFlower HospitalOVOffice Visit ([facility] MICHAELMORE Duran JRFrankie ([id number]) 1965 M Date Time Provider Department 04/10/25 9:00 AM COURTNEY GLOVER [facility] During your visit today, we recorded the following information about you: Courtney Glover PSYD 04/10/2025 1:08 PM Signed INITIAL [facility] PSYCHOLOGICAL CONTACT Date of [...] diffuse bodily pain, and chronic headaches/migraines since metalizer. He denies any significant psychiatric history and [...] that his mattress qual (more content not included)...NormalFlower HospitalOVOffice Visit (GASTSP) MORE KINGSLEY ([id number]) 1965 M Date Time Provider Department 04/10/25 [...] Medications - Does the patient see a final touch up painter for chronic pain?No - Is the patient [...] - Has the patient met with a burnishing machine operator for diet recommendations with Gastroparesis? No - [...] range = 0-60%). (more content not included)...Normal Flower HospitalPNon [id number] (GENSSP) MORE KINGSLEY JR. ([id number]) 1965 M LV Date Time Provider Department [...] EUS, OR TUBE INTERVENTIONS [GI2] Order #: [id number] FUTURE sucralfate (CARAFATE) 1 gram tabletTake 1 [...] Encounter Status:Closed by JEROME DEL TORO on 04/10/25NoLakeHealth Beachwood [facility] Hospitalpierre [id number] [Mass/Vol]2.7 mg/dLHigh<0.9[facility] HospitalComment on above:Order Comment: Specimen Type: BLOOD SPECIMEN Ordering Facility: [facility] Address: [address] [address]Performed By: #### 1988-5, 2157-6 #### [facility] CLIA [id number] Omar method (Bld) [Velocity]on 47-26-7549CTY (Bld) [Velocity]66 mm/hHigh0-15[facility] HospitalComment on above:Order Comment: Specimen Type: BLOOD SPECIMEN Ordering Facility: [facility] Address: [address] [place], [place] [address]Performed By: #### LACPYR #### [facility] CLIA [id number] [address] [place] [address] [place] CDDTLVSTBI15 Ab Ser-aCncon 76-38-8673Mibwosbpx decarboxylase 65 Ab Qn (S)<5.0Normal<=5.0[facility] HospitalComment on above:Order Comment: Specimen Type: BLOOD SPECIMEN Ordering Facility: [facility] Address: [address] [place], [place] [address]Result Comment: Anti-glutamic acid decarboxylase antibody (GAD65) test [...] correlation is required.Performed By: #### LACPYR #### [facility] CLIA [id number] [address] [place] [address] [place] AMERICAGlutamate decarboxylase 65 Ab Qn (S)on 12-78-9716EHWPSAJN ACID DECARBOXYLAS AB QUALITATIVENegativeNormal NegativeSthe rehabilitation institute of st. louis HospitalComment on above:Order Comment: Specimen Type: BLOOD SPECIMEN Ordering Facility: [facility] Address: [address] [place], [place] [address]Performed By: #### LACPYR #### [facility] CLIA [id number] [address] [place] [address] [place] SYVVNSPBzN3b (Bld)on 04-10-2025 Average glucose Estimated from glycated hemoglobin (Bld) [Mass/Vol]269 mg/dL NormalSolakeland regional hospital HospitalComment on above:Order Comment: Specimen Type: BLOOD SPECIMEN Ordering Facility: [facility] Address: [address] [place], [place] [id number] Comment: eAG: (Estimated average glucose) is a calculated value from HgbA1c and is lifeline representatives of the average blood glucose level in the last 2-3 month period.Performed By: #### [id number] #### [facility] CLIA [id number] [address] [place] [address] [place] VYPNFAUFrI7p (Bld) [Mass fraction] 11.0 %High4.3-5.6[facility] HospitalComment on above:Order Comment: Specimen Type: BLOOD SPECIMEN Ordering Facility: [facility] Address: [address] [place], [place] [address]Result Comment: [place] [employer] guidelines indicate that patients with HgbA1c in the range 5.7-6.4% are at increased risk for development of diabetes, and intervention by lifestyle modification may be beneficial. HgbA1c greater or equal to 6.5% is considered diagnostic of diabetes.Performed By: #### 30912-0 #### [facility] CLIA [id number] [address] [place] [address] [place] AMERICAIgA SerPl-mCncon 04-10-2025 IgA [Mass/Vol]608 mg/uFCple29-834Xlylxmbjgdf HospitalComment on above:Order Comment: Specimen Type: BLOOD SPECIMEN Ordering Facility: [facility] Address: [address] [place], [place] [address]Performed By: #### 2465-3, 2458-8, 2472-9 #### [facility] CLIA [id number] [address] [place] [address] [place] AMERICAIgG SerPl-mCncon 04-10-2025 IgG [Mass/Vol]3158 mg/aZIslv533-9570Famnyhtlorr HospitalComment on above:Order Comment: Specimen Type: BLOOD SPECIMEN Ordering Facility: [facility] Address: [address] [place], [place] [address]Performed By: #### [id number] #### [facility] CLIA [id number] [address] [place] [address] [place] AMERICAIgM SerPl-mCncon 04-10-2025 IgM [Mass/Vol]110 mg/vCZjenkx09-596Ikgfwtconnv HospitalComment on above:Order Comment: Specimen Type: BLOOD SPECIMEN Ordering Facility: [facility] Address: [address] [place], [place] [address]Performed By: #### LACPYR #### [facility] CLIA [id number] [address] [place] [address] [place] AMERICALDH SerPl-cCncon 04-10-2025 LDH [Catalytic activity/Vol]159 U/YXqnlpf013-796Ehgxpiwtbrp HospitalComment on above:Order Comment: Specimen Type: BLOOD SPECIMEN Ordering Facility: [facility] Address: [address] [place], [place] [address]Performed By: #### [id number] #### [facility] CLIA [id number] [address] [place] [address] [place] AMERICAORGANIC ACIDS UR, QUANT W/CONSULTon 91902-Qzgrkjtnxsyziwbx/Creatinine (U) [Molar ratio]<0.4Low 0.6-17.7[facility] HospitalComment on above:Order Comment: Specimen Type: URINE SPECIMEN Ordering Facility: [facility] Address: [address] [place], [place] [address]Performed By: #### [id number] #### [facility] CLIA [id number] [address] [place] [address] [place]2- Hydroxyisovalerate/Creatinine (U) [Molar ratio]0.1 umol/mmolCrNormal0.0-0.1 [facility] HospitalComment on above:Order Comment: Specimen Type: URINE SPECIMEN Ordering Facility: [facility] Address: [address] [place], [place] [address]Performed By: #### [id number] #### [facility] CLIA [id number] [address] [place] [address] [place] JHILFOX7-Augnkv-0-hydroxybutyrate (C5-OH)/Creatinine (U) [Molar ratio]<0.9Gvffxw7.0-1.3Sthe rehabilitation institute of st. [facility] HospitalComment on above:Order Comment: Specimen Type: URINE SPECIMEN Ordering Facility: [facility] Address: [address] [place], [place] [address]Performed By: #### [id number] #### [facility] CLIA [id number] [address] [place] [address] [place]2- Methylbutyrylglycine/Creatinine (U) [Molar ratio]<0.0Zmmurb5.0-0.4Sthe rehabilitation institute of st[facility] HospitalComment on above:Order Comment: Specimen Type: URINE SPECIMEN Ordering Facility: [facility] Address: [address] [place], [place] [address]Performed By: #### [id number] #### [facility] CLIA [id number] [address] [place] [address] [place]2-Methylcitrate/Creatinine (U) [Molar ratio]<1.3Qqrdjp2.0-13.9[facility] HospitalComment on above:Order Comment: Specimen Type: URINE SPECIMEN Ordering Facility: [facility] Address: [address] [place], [place] [address]Performed By: #### [id number] #### [facility] CLIA [id number] [address] [place] [address] [place]2-Oxoadipate/Creatinine (U) [Molar ratio]<1.1Esbizy9.0-3.3Sthe rehabilitation institute of st. [facility] HospitalComment on above:Order Comment: Specimen Type: URINE SPECIMEN Ordering Facility: [facility] Address: [address] [place], [place] [address]Performed By: #### [id number] #### [facility] CLIA [id number] [address] [place] [address] [place]3- Hydroxyglutarate/Creatinine (U) [Molar ratio]0.0 umol/mmolCrNormal0.0-0.[address] John'SComment on above:Order Comment: Specimen Type: URINE SPECIMEN Ordering Facility: [facility] Address: [address] [place], [place] [address]Performed By: #### [id number] #### [facility] CLIA [id number] [address] [place] [address] [place]3- Hydroxyisovalerate/Creatinine (U) [Molar ratio]2.9 umol/mmolCrNormal2.1-27.[address] John'SComment on above:Order Comment: Specimen Type: URINE SPECIMEN Ordering Facility: [facility] Address: [address] [place], [place] [address]Performed By: #### [id number] #### [facility] CLIA [id number] [address] [place] [address] [place]3- Methylcrotonylglycine/Creatinine (U) [Molar ratio]<0.3Normal<0.3SSSM [facility] Health CenterComment on above:Order Comment: Specimen Type: URINE SPECIMEN Ordering Facility: [facility] Address: [address] [place], [place] [address]Performed By: #### [id number] #### [facility] CLIA [id number] [address] [place] [address] [place]3- Methylglutaconate/Creatinine (U) [Molar ratio]0.3 umol/mmolCrNormal0.0-2.[address] [facility]SComasc[facility] on above:Order Comment: Specimen Type: URINE SPECIMEN Ordering Facility: [facility] Address: [address] [place], [place] [address]Performed By: #### [id number] #### [facility] CLIA [id number] [address] [place] [address] [place]3-Methylglutarate/Creatinine (U) [Molar ratio]0.2 umol/mmolCrNormal0.0-0.6SoHannibal Regional HospitalComment on above:Order Comment: Specimen Type: URINE SPECIMEN Ordering Facility: [facility] Address: [address] [place], [place] [address]Performed By: #### [id number] #### [facility] CLIA [id number] [address] [place] [address] [place]4- Hydroxyphenylacetate/Creatinine (U) [Molar ratio]10.8 umol/mmolCrNormal5.7-147.[address] John'SComment on above:Order Comment: Specimen Type: URINE SPECIMEN Ordering Facility: [facility] Address: [address] [place], [place] [address]Performed By: #### [id number] #### [facility] CLIA [id number] [address] [place] [address] [place]4- Hydroxyphenyllactate/Creatinine (U) [Molar ratio]20.8 umol/mmolCrNormal1.3-23.[address] John'SComment on above:Order Comment: Specimen Type: URINE SPECIMEN Ordering Facility: [facility] Address: [address] [place], [place] [address]Performed By: #### [id number] #### [facility] CLIA [id number] [address] [place] [address] [place]4- Hydroxyphenylpyruvate/Creatinine (U) [Molar ratio]0.0 umol/mmolCrNormal<=0.[address] [facility]SComasc[facility] on above:Order Comment: Specimen Type: URINE SPECIMEN Ordering Facility: [facility] Address: [address] [place], [place] [address]Performed By: #### [id number] #### [facility] CLIA [id number] [address] [place] [address] [place]5-Oxoproline/Creatinine (U) [Molar ratio]1.5 umol/mmolCrNormal0.4-3.1Sthe [facility] institute [facility] HospitalComment on above: Order Comment: Specimen Type: URINE SPECIMEN Ordering Facility: [facility] Address: [address] [place], [place] [address]Performed By: #### [id number] #### [facility] CLIA [id number] [address] [place] [address] [place] AMERICAAcetoacetate/Creatinine (U) [Molar ratio]<0.9High0.0-0.5Sthe rehabilitation institute of [facility] HospitalComment on above:Order Comment: Specimen Type: URINE SPECIMEN Ordering Facility: [facility] Address: [address] [place], [place] [address]Performed By: #### [id number] #### [facility] CLIA [id number] [address] [place] [address] [place] AMERICAAconitate/Creatinine (U) [Molar ratio]19.3 umol/mmolCrNormal8.5-109.6SoHannibal Regional HospitalComment on above:Order Comment: Specimen Type: URINE SPECIMEN Ordering Facility: [facility] Address: [address] [place], [place] [address]Performed By: #### [id number] #### [facility] CLIA [id number] [address] [place] [address] [place] AMERICAAdipate/Creatinine (U) [Molar ratio]1.3 umol/mmolCrNormal0.3-9.2Sthe [facility] HospitalComment on above: Order Comment: Specimen Type: URINE SPECIMEN Ordering Facility: [facility] Address: [address] [place], [place] [address]Performed By: #### [id number] #### [facility] CLIA [id number] [address] [place] [address] [place] AMERICAAlpha hydroxybutyrate/Creatinine (U) [Molar ratio]1.0 umol/mmolCrNormal0.0-2.[address] John'SComment on above:Order Comment: Specimen Type: URINE SPECIMEN Ordering Facility: [facility] Address: [address] [place], [place] [address]Performed By: #### [id number] #### [facility] CLIA [id number] [address] [place] [address] [place] AMERICAAlpha ketoglutarate/Creatinine (U) [Molar ratio]6.2 umol/mmolCrNormal0.2-42.7 [facility] HospitalComment on above:Order Comment: Specimen Type: URINE SPECIMEN Ordering Facility: [facility] Address: [address] [place], [place] [address]Performed By: #### [id number] #### [facility] CLIA [id number] [address] [place] [address] [place] AMERICABenzoate/Creatinine (U) [Molar ratio]<12.0Znruvm9.0-14.6[facility] HospitalComment on above:Order Comment: Specimen Type: URINE SPECIMEN Ordering Facility: [facility] Address: [address] [place], [place] [address]Performed By: #### [id number] #### [facility] CLIA [id number] [address] [place] [address] [place] AMERICABeta hydroxybutyrate/Creatinine (U) [Molar ratio]<1.9Wzwqyo9.1-2.6[facility] HospitalComment on above:Order Comment: Specimen Type: URINE SPECIMEN Ordering Facility: [facility] Address: [address] [place], [place] [id number] By: #### [id number] #### [facility] CLIA [id number] [address] [place] [address] [place] AMERICAButyrylglycine/Creatinine (U) [Molar ratio]0.0 umol/mmolCrNormal0.0-0.7[facility] HospitalComment on above:Order Comment: Specimen Type: URINE SPECIMEN Ordering Facility: [facility] Address: [address] [place], [place] [address]Performed By: #### [id number] #### [facility] CLIA [id number] [address] [place] [address] [place] AMERICACreatinine (U) [Mass/Vol] 275.7 mg/wWIcvxgm10.8-314.5Sthe [facility] HospitalComment on above:Order Comment: Specimen Type: URINE SPECIMEN Ordering Facility: [facility] Address: [address] [place], [place] [address]Performed By: #### [id number] #### [facility] CLIA [id number] [address] [place] [address] [place] AMERICAEthylmalonate/Creatinine (U) [Molar ratio]2.7 umol/mmolCrNormal0.5-6.2Sthe [facility] HospitalComment on above: Order Comment: Specimen Type: URINE SPECIMEN Ordering Facility: [facility] Address: [address] [place], [place] [address]Performed By: #### [id number] #### [facility] CLIA [id number] [address] [place] [address] [place] AMERICAFumarate/Creatinine (U) [Molar ratio]1.9 umol/mmolCrNormal0.3-2.6[facility] John'SComment on above: Order Comment: Specimen Type: URINE SPECIMEN Ordering Facility: [facility] Address: [address] [place], [place] [address]Performed By: #### [id number] #### [facility] CLIA [id number] [address] [place] [address] [place] AMERICAGlutarate/Creatinine (U) [Molar ratio]0.1 umol/mmolCrNormal0.0-1.4Sthe [facility] HospitalComment on above: Order Comment: Specimen Type: URINE SPECIMEN Ordering Facility: [facility] Address: [address] [place], [place] [address]Performed By: #### [id number] #### [facility] CLIA [id number] [address] [place] [address] [place] AMERICAHexanoylglycine/Creatinine (U) [Molar ratio]<0.9Xcbqun9.0-0.1Sthe [facility] HospitalComment on above:Order Comment: Specimen Type: URINE SPECIMEN Ordering Facility: [facility] Address: [address] [place], [place] [address]Performed By: #### [id number] #### [facility] CLIA [id number] [address] [place] [address] [place] AMERICAIsobutyrylglycine/Creatinine (U) [Molar ratio]<0.2Ptakwf7.0-1.2Sthe [facility] HospitalComment on above:Order Comment: Specimen Type: URINE SPECIMEN Ordering Facility: [facility] Address: [address] [place], [place] [address]Performed By: #### [id number] #### [facility] CLIA [id number] [address] [place] [address] [place] AMERICAIsocitrate/Creatinine (U) [Molar ratio]62.1 umol/mmolCrNormal9.1-271.9[facility] HospitalComment on above:Order Comment: Specimen Type: URINE SPECIMEN Ordering Facility: [facility] Address: [address] [place], [place] [address]Performed By: #### [id number] #### [facility] CLIA [id number] [address] [place] [address] [place] AMERICALactate/Creatinine (U) [Molar ratio]23.5 umol/mmolCrNormal2.9-47.2Sthe [facility] HospitalComment on above: Order Comment: Specimen Type: URINE SPECIMEN Ordering Facility: [facility] Address: [address] [place], [place] [address]Performed By: #### [id number] #### [facility] CLIA [id number] [address] [place] [address] [place] AMERICAMalate/Creatinine (U) [Molar ratio]0.8 umol/mmolCrNormal0.0-1.1Sthe [facility] HospitalComment on above:Order Comment: Specimen Type: URINE SPECIMEN Ordering Facility: [facility] Address: [address] [place], [place] [address]Performed By: #### [id number] #### [facility] CLIA [id number] [address] [place] [address] [place] AMERICAMalonate/Creatinine (U) [Molar ratio]0.0 umol/mmolCrNormal0.0-0.1Sthe [facility] HospitalComment on above: Order Comment: Specimen Type: URINE SPECIMEN Ordering Facility: [facility] Address: [address] [place], [place] [address]Performed By: #### [id number] #### [facility] [facility] CLIA [id number] [address] [place] [address] [place] AMERICAMethylmalonate/Creatinine (U) [Molar ratio]<0.6Gtgcse3.0-0.6[facility] HospitalComment on above:Order Comment: Specimen Type: URINE SPECIMEN Ordering Facility: [facility] Address: [address] [place], [place] [address]Performed By: #### [id number] #### [facility] CLIA [id number] [address] [place] [address] [place] AMERICAMethylsuccinate/Creatinine (U) [Molar ratio]0.4 umol/mmolCrNormal0.0-1.4Sthe rehabilitation institute of [facility] HospitalComment on above:Order Comment: Specimen Type: URINE SPECIMEN Ordering Facility: [facility] Address: [address] [place], [place] [address]Performed By: #### [id number] #### [facility] CLIA [id number] [address] [place] [address] [place]-acetylaspartate/Creatinine (U) [Molar ratio]0.8 umol/mmolCrNormal0.1-8.9[facility] HospitalComment on above:Order Comment: Specimen Type: URINE SPECIMEN Ordering Facility: [facility] Address: [address] [place], [place] [address]Performed By: #### [id number] #### [facility] CLIA [id number] [address] [place] [address] [place]-acetyltyrosine/Creatinine (U) [Molar ratio]0.3 umol/mmolCrNormal0.0-1.2[facility] HospitalComment on above:Order Comment: Specimen Type: URINE SPECIMEN Ordering Facility: [facility] Address: [address] [place], [place] [address]Performed By: #### [id number] #### [facility] CLIA [id number] [address] [place] [address] [place] AMERICAOxalate/Creatinine (U) [Molar ratio]1.7 umol/mmolCrNormal0.7-12.4Sthe [facility] HospitalComment on above: Order Comment: Specimen Type: URINE SPECIMEN Ordering Facility: [facility] Address: [address] [place], [place] [address]Performed By: #### [id number] #### [facility] CLIA [id number] [address] [place] [address] [place] AMERICAPyruvate/Creatinine (U) [Molar ratio]0.6 umol/mmolCrNormal0.1-2.6[facility] HospitalComment on above: Order Comment: Specimen Type: URINE SPECIMEN Ordering Facility: [facility] Address: [address] [place], [place] [address]Performed By: #### [id number] #### [facility] CLIA [id number] [address] [place], [place] [address] [place] AMERICASebacate (C8)/Creatinine (U) [Molar ratio]<3.4High0.0-0.3Sthe [facility] HospitalComment on above:Order Comment: Specimen Type: URINE SPECIMEN Ordering Facility: [facility] Address: [address] [place], [place] [address]Performed By: #### [id number] #### [facility] CLIA [id number] [address] [place] [address] [place] AMERICASuberate/Creatinine (U) [Molar ratio]0.9 umol/mmolCrNormal0.0-7.4Sthe [facility] HospitalComment on above: Order Comment: Specimen Type: URINE SPECIMEN Ordering Facility: [facility] Address: [address] [place], [place] [address]Performed By: #### [id number] #### [facility] CLIA [id number] [address] [place] [address] [place] AMERICASuberylglycine/Creatinine (U) [Molar ratio]0.0 umol/mmolCrNormal<=0.0[facility] HospitalComment on above: Order Comment: Specimen Type: URINE SPECIMEN Ordering Facility: [facility] Address: [address] [place], [place] [address]Performed By: #### [id number] #### [facility] CLIA [id number] [address] [place] [address] [place] AMERICASuccinate/Creatinine (U) [Molar ratio]0.7 umol/mmolCrNormal0.3-27.4Sthe [facility] HospitalComment on above: Order Comment: Specimen Type: URINE SPECIMEN Ordering Facility: [facility] Address: [address] [place], [place] [address]Performed By: #### [id number] #### [facility] CLIA [id number] [address] [place] [address] [place] AMERICASuccinylacetone/Creatinine (U) [Molar ratio]<0.4Normal<0.4[facility] HospitalComment on above:Order Comment: Specimen Type: URINE SPECIMEN Ordering Facility: [facility] Address: [address] [place], [place] [address]Performed By: #### [id number] #### [facility] CLIA [id number] [address] [place], [place] [address]UOA CONSULTATIONMercy Mccune-Brooks HospitalComment on above:Order Comment: Specimen Type: URINE SPECIMEN Ordering Facility: [facility] Address: [address] [place], [place] [address]Result Comment: This urine organic acid analysis shows [...] and its performance characteristics determined by the [facility] Neu[facility]etabolism [facility]. It has not been cleared or approved by the US Food and Drug Administration. The FDA had determined that such clearance or approval is not necessary.Performed By: #### [id number] #### [facility] CLIA [id number] [address] [place], [place] [address]UO REVIEWReviewed by Forrest Gomez MD, Ph.D ([id number])[facility] on above:Order Comment: Specimen Type: URINE SPECIMEN Ordering Facility: [facility] Address: [address] [place], [place] [address]Performed By: #### [id number] #### [facility] CLIA [id number] [address] [place] [address] [facility] SYSTEMUracil/Creatinine (U) [Molar ratio]<0.5Cdqdln7.0-5.1SSSM [facility] CenterComascension providence [facility] on above:Order Comment: Specimen Type: URINE SPECIMEN Ordering Facility: [facility] Address: [address] [place], [place] [address]Performed By: #### [id number] #### [facility] CLIA [id number] [address] [place] [address] [place] AMERICAPYRUVATE+LACTATE BLon 57-83-3005Rrjvjlr [Moles/Vol]2.1 mmol/LNormal0.5-2.2[facility] HospitalComment on above:Order Comment: Specimen Type: BLOOD SPECIMEN Ordering Facility: [facility] Address: [address] [place] [address] Comment: This test was developed, and its performance characteristics determined by the [facility] Department of Pathology and Laboratory Medicine. It has not been cleared or approved by[facility] FDA. The [facility] Department of Pathology and Laboratory Medicine is regulated under CLIA as qualified to perform high- complexity testing. This test is used for clinical purposes. It should not be regarded as investigational or for research.Performed By: #### [id number] #### [facility] CLIA [id number] [address] [place] [address] [place] AMERICAPyruvate (Bld) [Moles/Vol] 0.05 mmol/LNormal0.03-0.10[facility] HospitalComment on above:Order Comment: Specimen Type: BLOOD SPECIMEN Ordering Facility: [facility] Address: [address] [place] [address] Comment: This test was developed, and its performance characteristics determined by the [facility] Department of Pathology and Laboratory Medicine. It has not been cleared or approved byohiohealth [facility] FDA. The [facility] Department of Pathology and Laboratory Medicine is regulated under CLIA as qualified to perform high- complexity testing. This test is used for clinical purposes. It should not be regarded as investigational or for research.Performed By: #### [id number] #### [facility] CLIA [id number] [address] [place] [address] [place] AMERICAVOLTAGE GATED CA IGGon 04-10-2025P/Q-TYPE CALCIUM CHANNEL ANTIBODY0.0 pmol/LNormal0.0-24.5[facility] HospitalComment on above:Order Comment: Specimen Type: BLOOD SPECIMEN Ordering Facility: [facility] Address: [address] [place] [address]Exczpo Comment: INTERPRETIVE INFORMATION: P/Q-Type Calcium Channel Antibody 0.0 to 24.5 pmol/L ............. Negative 24.6 to 45.6 pmol/L ............ Indeterminate 45.7 pmol/L or greater.......... Positive This test was developed and its performance characteristics determined by [facility]. It has not been cleared or approved by the US Food and Drug Administration. This test was performed in a CLIA certified laboratory and is intended for clinical purposes. Performed By: [facility] [address] [place] [address] Director Video: Warren Simmons MD, PhD CLIA Number: [id number] By: #### LACPYR #### [facility] CLIA [id number] [address] [place] [address] [place] AMERICAVOLTAGE-GATED POTASSIUM SZYMANSKI ABon 52-44-1430TUXLLNE-GATED POTASSIUM CHANNEL AB, SER0 pmol/LNormal0-[address] John'SComment on above:Order Comment: Specimen Type: BLOOD SPECIMEN Ordering Facility: [facility] Address: [address] [place], [place] [address] Comment: INTERPRETIVE INFORMATION: Voltage-Gated Potassium Channel (VGKC) [...] developed and its performance characteristics determined by [facility]. It has not been cleared or approved by the US Food and Drug Administration. This test was performed in a CLIA certified laboratory and is intended for clinical purposes. Performed By: [facility] [address] [place] [address] Director Video: Warren Simmons MD, PhD CLIA Number: [id number] By: #### VGKCAB #### [facility] CLIA [id number] [address] [place], [place] [address]ZOZJpd [id number] (GASTSP) MORE KINGSLEY JR. ([id number]) 1965 M Date Time Provider Department 04/05/25 [...] 04/05/2025 (None) Encounter Status:Closed by ORLINDarynSHENA on 04/05/25[facility] [id number] Vaughn 03/28/2025 4:19 PM Debridement Performed by: SCOTT Vaughn Authorized by: SCOTT Vaughn Consent: Consent obtained: Verbal and written Consent given by: Patient Risks discussed: Yes Debridement Details: Performed by: AVIONICS ELECTRICAL ENGINEER Type: Sharp Level: Subcutaneous Tissue, Devitalized tissue and other material debrided: Callus and subcutaneous tissue Anesthesia administration: topical Anesthesia: EMLA Total Surface Area Debrided cm^2: 10.37 Specimen Taken: None Instrument: Curette Amount of bleeding: Medium Bleeding Control: Pressure Response to treatment: Procedure was tolerated well Tissue Applied?: NoMANUALLY TRANSCRIBED RESULTSSumma Health Akron CampusCBC AND AUTO DIFFon [id number] BASOPHIL0.2 X10E9/LNormal0.0-0.2ProMedHollywood Community Hospital of HollywoodComment on above:Performed By: #### CBCA, CMP #### [facility] ([id number]) [address] [place] [address] 86209GMJRDZEA NEUTROPHIL6.0 X10E9/LNormal1.5-6.6[facility] CenterComment on above:Performed By: #### CBCA, CMP #### [facility] ([id number]) [address] [place] [address] 27392Oboqdaylq/100 WBC (Bld)2.4 %NormalProDallas Medical Center Comment on above:Performed By: #### CBCA, CMP #### [facility] ([id number]) [address] [place] [address] 80434Yxtqukwzauk (Bld) [#/Vol]0.3 10*3/uLNormal0.0-0.4[facility] CenterComment on above:Performed By: #### CBCA, CMP #### [facility] ([id number]) [address] [place] [address] 14746Paeoqslqmjl/100 WBC (Bld)3.4 %NormalCrystal Clinic Orthopedic Center Comment on above:Performed By: #### CBCA, CMP #### [facility] ([id number]) [address] [place] [address] 73[address]Npaekilmlsk distribution width (RBC) [Ratio]15.0 %Normal 11.5-15.0[facility]opedic CenterComment on above:Performed By: #### CBCA, CMP #### [facility] ([id number]) [address] [place] [address] 26529Tuhyljaefb (Bld) [Volume fraction]40.0 %Ziweaw99-35OumDfglbbDallas Medical CenterComment on above:Performed By: #### CBCA, CMP #### [facility] ([id number]) [address] [place] [address] 43749Tfobswzfmw (Bld) [Mass/Vol]13.7 g/yFHmbnng52.0-17.0[facility] CenterComment on above:Performed By: #### CBCA, CMP #### [facility] ([id number]) [address] [place] [address] 54619Zxnccatukzt (Bld) [#/Vol]2.1 10*3/uLNormal1.0-3.5PSelect Medical Cleveland Clinic Rehabilitation Hospital, Edwin ShawComment on above:Performed By: #### CBCA, CMP #### [facility] ([id number]) [address] [place] [address] 30654Reczrqnqbzm/100 WBC (Bld)21.1 %NormalCrystal Clinic Orthopedic Center Comment on above:Performed By: #### CBCA, CMP #### [facility] ([id number]) [address] [place] [address] 16538QWH (RBC) [Entitic mass]28.8 baWyzuwf10-76SytKzmaipCrystal Clinic Orthopedic CenterComment on above:Performed By: #### CBCA, CMP #### [facility] ([id number]) [address] [place] [address] 43671CNTR (RBC) [Mass/Vol]34.3 g/rRQmbgjh09-33NenBczpvhCrystal Clinic Orthopedic CenterComment on above:Performed By: #### CBCA, CMP #### [facility] ([id number]) [address] [place] [address] 17141VKD (RBC) [Entitic vol]84 hOQfsylb71-613LvkMnllwbCrystal Clinic Orthopedic CenterComment on above:Performed By: #### CBCA, CMP #### [facility] ([id number]) [address] [place] [address] 97435Eakhqxlfy (Bld) [#/Vol]1.4 10*3/uLHigh0-0.9[facility] CenterComment on above:Performed By: #### CBCA, CMP #### [facility] ([id number]) [address] [place] [address] 74635Rgyachclu/100 WBC (Bld)13.4 %[facility] Comment on above:Performed By: #### CBCA, CMP #### [facility] ([id number]) [address] [place] [address] 22753Niofnkwbfli/100 WBC (Bld)59.7 %[facility] Comment on above:Performed By: #### CBCA, CMP #### [facility] ([id number]) [address] [place] [address] 80745Pfkqiovi mean volume (Bld) [Entitic vol]8.1 fLNormal7-12 [facility] CenterComment on above:Performed By: #### CBCA, CMP #### [facility] ([id number]) [address] [place] [address] 60585Kxfjtmjvm (Bld) [#/Vol]334 10*3/lQJpmtoc813-384NhvDlkwiz Fremont HospitalComment on above:Performed By: #### ARELY, CMP #### [facility] ([id number]) [address] [place] [address] 02482IQY COUNT4.76 X10E12/LNormal4.10-5.70[facility] Comment on above:Performed By: #### ARELY, CMP #### [facility] ([id number]) [address] [place] [address] 75879AGW (Bld) [#/Vol]10.1 10*3/uLNormal4.0-11.0ProDallas Medical CenterComment on above:Performed By: #### ARELY, CMP #### [facility] ([id number]) [address] [place] [address] 39242CQREBJJRUQJXV METABOLIC PANELon 44-07-7868Bmyupoy [Mass/Vol]2.9 g/dLLow3.2-5.3PSelect Medical Cleveland Clinic Rehabilitation Hospital, Edwin ShawComment on above:Performed By: #### ARELY, CMP #### [facility] ([id number]) [address] [place] [address], [place] [address]RGZ [Catalytic activity/Vol]95 U/AGgiifu95-365VxhHhqosiDallas Medical CenterComment on above:Performed By: #### ARELY, CMP #### [facility] ([id number]) [address] [place] [address], [place] [address]HQF [Catalytic activity/Vol]15 U/LNormal0-40ProDallas Medical CenterComment on above:Performed By: #### CBCRachana, CMP #### [facility] ([id number]) [address] [place] [address] 42451Tlvpv gap [Moles/Vol]7 mmol/LNormal5-15ProDallas Medical CenterComment on above:Performed By: #### ARELY, CMP #### [facility] ([id number]) [address] [place] [address], [place] [address]AXQ [Catalytic activity/Vol]18 U/LNormal0-41[facility]opedic CenterComment on above:Performed By: #### CBCRachana, CMP #### [facility] ([id number]) [address] [place] [address], [place] [address]Abclbfuga [Mass/Vol]0.9 mg/dLNormal0.3-1.2PSelect Medical Cleveland Clinic Rehabilitation Hospital, Edwin ShawComment on above:Performed By: #### ARELY, CMP #### [facility] ([id number]) [address] [place] [address], [place] [address]Nnyhgos [Mass/Vol]8.3 mg/dLLow8.5-10.5PSelect Medical Cleveland Clinic Rehabilitation Hospital, Edwin ShawComment on above:Performed By: #### ARELY, CMP #### [facility] ([id number]) [address] [place] [address], [place] [address]Jfmazeuu [Moles/Vol]102 mmol/VChgcud00-034XkvBcllxcDallas Medical CenterComment on above:Performed By: #### ARELY, CMP #### [facility] ([id number]) [address] [place] [address], [place] [address]JG6 [Moles/Vol]23 mmol/MMuvbsk86-33RffTncgnoSelect Medical [facility] Clinic [facility] Comment on above:Performed By: #### CBCRachana, CMP #### [facility] ([id number]) [address] [place] [address], [place] [address]Lkoemeswtw [Mass/Vol]1.20 mg/dLNormal0.70-1.20ProDallas Medical CenterComment on above:Result Comment: METHOD TRACEABLE TO IDMS STANDARD Performed By: #### CBCRachana, CMP #### [facility] ([id number]) [address] [place] [address], [place] [address]KZM/1.73 sq M.predicted among non-blacks MDRD (S/P/Bld) [Vol rate/Area]70 mL/min/{1.73_m2}Normal>59ProDallas Medical CenterComment on above:Result Comment: Reported eGFR is based on the CKD-EPI 1 equation that does not use a race coefficient.Performed By: #### ARELY, CMP #### [facility] ([id number]) [address] [place] [address] 724[address]Ztzqeza [Mass/Vol]213 mg/zRInkl36-90ZshJdczxjCrystal Clinic Orthopedic Center Comment on above:Performed By: #### ARELY, CMP #### [facility] ([id number]) [address] [place] [address] 301[address]Sybtboelq [Moles/Vol]3.6 mmol/LNormal3.5-5.0ProDallas Medical CenterComment on above:Performed By: #### ARELY, CMP #### [facility] ([id number]) [address] [place] [address] 99[address]Eqqnovi [Mass/Vol]8.3 g/dLHigh6.0-8.0[facility] Comment on above:Performed By: #### ARELY, CMP #### [facility] ([id number]) [address] [place] [address] 65[address]Agwyhq [Moles/Vol]132 mmol/DLqr711-535PsiNazmwyDallas Medical CenterComment on above:Performed By: #### ARELY, CMP #### [facility] ([id number]) [address] [place] [address] 18[address]Vpki nitrogen [Mass/Vol]18 mg/dLNormal5-23ProDallas Medical CenterComment on above:Performed By: #### CBCA, CMP #### [facility] ([id number]) [address] [place] [address] 833[address]Mnfpqzb (P damon) [Moles/Vol]on 23-43-8199EUTFHTM W/REFLEX1.3 mmol/LNormal0.4-2.0ProDallas Medical CenterComment on above:Result Comment: Result did not trigger repeat Lactate, re-order if needed.Performed By: #### 38745-4 #### [facility] ([id number]) [address] [place] [address], FIRST FLOOR [place], [place] [address]OKLMLVLVXUR WOUND CULTUREon 78-76-8293Stwgtkvk identified Aer cx Nom (Wound)GRAM STAIN 0 [...] DAPTOMYCIN S 0.25 F DOXYCYCLINE S <=0.5 FSusceptibleProDallas Medical CenterComment on above: Performed By: #### 632-0 #### [facility] ([id number]) [address] [facility], [address] [place], [place] [address]PE FOOT RT MIN 3 VWSon 20-30-9117EF FOOT RT MIN 3 VWSXR FOOT RT [...] Du Hawthorne MD on 03/04/2025 10:59 AMNormalProMedica Mendocino Coast District HospitalCNPNon 31-27-6303IHKMTcnomlfsn (GASTMN) MORE KINGSLEY JR. ([id number]) 1965 M Date Time Provider Department 11/21/24 DAVIDA PRICE [facility] During your visit today, we recorded the following information about you: Leonard Cadet 11/21/2024 3:[address] Yoon's office phones requesting office note from October 24 When completed, please fax to [phone] Davida Hawkins MD 11/24/2024 9:41 AM Signed [...] MA - Fully Assessed Reason for Visit: Director Prison - Other [9042] Cmt: Dr Yoon's office/request for office note Problem List As Of Date: 11/21/2024 (None) Encounter Status:Closed by LEONARD CADET on 11/21/24[facility] [id number] (GASTSP) MORE KINGSLEY JR. ([id number]) 1965 M Date Time Provider Department 06/22/24 [...] 07/05/2024 8:20 AM Signed Received fax from [facility] asking if he has been scheduled. [...] 10:57 AM Signed Dexcom or empties trial. [facility]. EGG is in. Art Figueredo DO 07/12/2024 10:57 AM Signed Addended by: ART FIGUEERDO on: 07/12/2024 10:57 AM Modules accepted: Layla Silva RN 07/12/2024 12:16 PM Signed Screens positive for EMPTIES medically however, unsure if will be complaint with follow ups evaluate at [facility] Aparicio Rose M 07/13/2024 11:43 AM Signed Patient is scheduled at [facility] with GP Team Allergies As of Date: 06/22/2024 (Not on File) Date Reviewed: Never Reviewed Reason for Visit: Appointment [186] Primary Visit Diagnosis:Gastroparesis [K31.84] Order(s):EGG (ELECTROGASTROGRAPHY) [38402GIT] Order #: [id number] Problem List As Of Date: 06/22/2024 (None) Encounter Status:Closed by DEONNA PATEL on 06/22/24NoCleveland Clinic Mercy HospitalGlucose Glucometer (dC) [Mass/Vol]Ordered By: Tracy Yoon on 71-21-9916Wwxbeeb [Mass/Vol]234 mg/dLLakehealth Tripoint Medical CenterComment on above:Random Glucose Reference Range is dependent on time and content of last meal. Glucose of more than 200 mg/dL in a nonstressed, ambulatory subject supports the diagnosis of Diabetes Mellitus.No Panel InformationOrdered By: Tracy Yoon on 40-43-7935Lffobwo Glucose CommentGlu2: cleaned [facility] Harding HospitalA1C HEMOGLOBINon 42-40-7895FwJ1t (Bld) [Mass fraction]10.4 %[employer] Other Glucose - FINGER STICKon 86-94-6085[place]zaga [Mass/Vol] 319 mg/dLNort [employer] Other HbA1c (Bld) [Mass fraction]on 35-18-3934J7T HEMOGLOBIN [employer] Other XR CHEST 1 Von 30-81-2628LA CHEST 1 VONE-VIEW CHEST RADIOGRAPH, 03/18/2023 8:32 PM EDT COMPARISON: Chest, 01/20/2021. CLINICAL HISTORY: Dizziness near syncope. Findings and impression: 1. Minimal linear atelectasis or scarring in the lingula. Lungs otherwise clear. 2. Borderline heart size. 3. No acute osseous abnormality. Electronically authenticated by: Mahad DIXON Date: 2023-03-18 22:26NoTrinity Health System Twin City Medical CenterBNPon 08-78-0909Sryehojrkpo peptide B (Bld) [Mass/Vol]174.0 pg/mLNormal<=900.0The [facility] Anderson HospitalComment on above:Performed By: #### HSTROPN, CMP, BNP #### [facility] [address] [place] [address] Dr. Michael Allen AUTO DIFFon 91-94-5303KUMK #0.1 103/ulNormal0.0-0.1The [facility] Anderson HospitalComment on above:Performed By: #### CBC #### [facility] [address] [address] [address] Michael GonzalesBasophils/100 WBC (Bld)1.4 %Normal0.2-2.0The [facility] Comment on above:Performed By: #### CBC #### [facility] [address] [place] [address] Dr. Michael Upton #0.2 103/ulNormal0.0-0.7The [facility] Anderson HospitalComment on above: Performed By: #### CBC #### [facility] [address] [address] [address] Michael Adamsosinophils/100 WBC (Bld)2.3 %Normal0.9-7.0The [facility] Comment on above:Performed By: #### CBC #### [facility] [address] [address] [address] Michael Adamsrythrocyte distribution width (RBC) [Ratio]13.9 %Qwrcdj74.0-15.0 The [facility] Anderson HospitalComment on above:Performed By: #### CBC #### [facility] [address] [place] [address] Dr. Michael GonzalesHematocrit (Bld) [Volume fraction]43.6 %Yrtpwz63.0-54.0The [facility] HospitalComment on above:Performed By: #### CBC #### [facility] [address] [place] [address] Dr. Michael GonzalesHemoglobin (Bld) [Mass/Vol]14.6 g/xHEvuysp44.0-18.0The [facility] HospitalComment on above:Performed By: #### CBC #### [facility] [address] [place] [address] Dr. Michael Olson #0.05 10e3/ulCritically high0.00-0.03The [facility] Comment on above:Performed By: #### CBC #### [facility] [address] [place] [address] Dr. Michael Olson %0.5 %Normal0.0-0.5The [facility] HospitalComment on above: Performed By: #### CBC #### [facility] [address] [place] [address] Dr. Michael GuzmánH #2.4 103/ulNormal1.2-3.8The [facility] HospitalComment on above:Performed By: #### CBC #### [facility] [address] [place] [address] Dr. Michael Bergeronmphocytes/100 WBC (Bld)26.3 %Xnmzox98.5-60.0The [facility] HospitalComment on above:Performed By: #### CBC #### [facility] [address] [address] [address] Michael Linares DIFF REQNONormalThe [facility] HospitalComment on above: Performed By: #### CBC #### [facility] [address] [address] [address] Michael Frank (RBC) [Entitic mass]28.7 ljXkdnoh72.9-34.0The [place] HospitalComment on above:Performed By: #### CBC #### [facility] [address] [address] [address] Michael Frank (RBC) [Mass/Vol]33.5 g/aPHttnhp57.9-35.2The [facility] HospitalComment on above:Performed By: #### CBC #### [facility] [address] [address] [address] Michael Frank (RBC) [Entitic vol]85.7 uGWvmybc57.0-94.0The [facility] HospitalComment on above:Performed By: #### CBC #### [facility] [address] [address] [address] Michael Masters #1.3 103/ulCritically high0.3-0.8The [facility] Comment on above:Performed By: #### CBC #### [facility] [address] [address] [address] Michael Princeocytes/100 WBC (Bld)13.6 %Critically high1.7-12.0The [facility] HospitalComment on above:Performed By: #### CBC #### [facility] [address] [address] [address] Michael Edmond #5.2 103/ulNormal1.4-6.5The [facility] HospitalComment on above:Performed By: #### CBC #### [facility] [address] [address] [address] Michael Hermosilloutrophils/100 WBC (Bld)55.9 %Vcahvn47.0-75.0The [facility] HospitalComment on above:Performed By: #### CBC #### [facility] [address] [place] [address] Dr. Michael GonzalesPlatelet mean volume (Bld) [Entitic vol]10.9 fLNormal9.5-13.5The [facility] HospitalComment on above:Performed By: #### CBC #### [facility] [address] [place] [address] Dr. Michael GonzalesPLT219 103/efRvbhot811-914Jwi [facility] HospitalComment on above: Performed By: #### CBC #### [facility] [address] [place] [address] Dr. Michael GonzalesRBC5.09 106/ulNormal4.70-6.10The [facility] HospitalComment on above:Performed By: #### CBC #### [facility] [address] [place] [address] Dr. Michael GonzalesWBC9.2 103/ulNormal4.0-11.0The [facility] HospitalComment on above: Performed By: #### CBC #### [facility] [address] [place] [address] Dr. Michael GonzalesMAGNESIUMon 60-94-9029Ypsohuahk [Mass/Vol]2.0 mg/dLNormal1.8-2.4 The [facility] HospitalComascension [facility] on above:Performed By: #### MG #### [facility] [address] [place] [address] Dr. Michael GonzalesPROF 14(COMP METB)on 60-36-9054Xpfkrio [Mass/Vol]3.3 g/dL Critically low3.4-5.0The [facility] HospitalComment on above:Performed By: #### HSTROPN, CMP, BNP #### [facility] [address] [place] [address] Dr. Michael GonzalesAlbumin/Globulin [Mass ratio]0.7 {ratio}NormalThe [facility] HospitalComment on above:Performed By: #### HSTROPN, CMP, BNP #### [facility] [address] [address] [address] Michael Ibanez [Catalytic activity/Vol]118 U/LCritically jpfk21-035Qxe [facility] HospitalComment on above:Performed By: #### HSTROPN, CMP, BNP #### [facility] [address] [address] [address] Michael Rhoades [Catalytic activity/Vol]19 U/QJsndqs55-98Fdy [facility] HospitalComment on above:Performed By: #### HSTROPN, CMP, BNP #### [facility] [address] [address] [address] Michael Carbajal gap [Moles/Vol]13.3 mmol/LNormalThe [facility] Comment on above:Performed By: #### HSTROPN, CMP, BNP #### [facility] [address] [place] [address] Dr. Michael Colon [Catalytic activity/Vol]24 U/EJumwsi13-22Qez [facility] HospitalComment on above:Performed By: #### HSTROPN, CMP, BNP #### [facility] [address] [address] [address] Michael GonzalesBilirubin [Mass/Vol]1.0 mg/dLNormal0.2-1.0The [facility] Comment on above:Performed By: #### HSTROPN, CMP, BNP #### [facility] [address] [address] [address] Michael GonzalesCalcium [Mass/Vol]8.7 mg/dLNormal8.5-10.1The [facility] Comment on above:Performed By: #### HSTROPN, CMP, BNP #### [facility] [address] [address] [address] Michael GonzalesChloride [Moles/Vol]101 mmol/FGtdutq22-518Btf [facility] Comment on above:Performed By: #### HSTROPN, CMP, BNP #### [facility] [address] [address] [address] Michael GonzalesCO2 [Moles/Vol]22.0 mmol/ZEoyihh53.0-32.0The [facility] Comment on above:Performed By: #### HSTROPN, CMP, BNP #### [facility] [address] [place] [address] Dr. Michael GonzalesCreatinine [Mass/Vol]2.08 mg/dLCritically high0.70-1.30The [facility] HospitalComment on above:Performed By: #### HSTROPN, CMP, BNP #### [facility] [address] [place] [address] Dr. Rodriguez ChangEGFR-AF LNUHXBKL45 mL/min/1.40q3Wtdksnuoho low>=60The [facility] HospitalComment on above:Performed By: #### HSTROPN, CMP, BNP #### [facility] [address] [place] [address] Dr. Rodriguez ChangEGFR-NON AF MIVBIIUT23 mL/min/1.00f5Wpfejduxss low>=60The [facility] HospitalComment on above:Performed By: #### HSTROPN, CMP, BNP #### [facility] [address] [place] [address] Dr. Michael GonzalesGlobulin (S) [Mass/Vol]4.6 g/dLNormalThe [facility] HospitalComment on above:Performed By: #### HSTROPN, CMP, BNP #### [facility] [address] [place] [address] Dr. Michael GonzalesGlucose [Mass/Vol]319 mg/dLCritically geyy94-729Yux [facility] on above:Performed By: #### HSTROPN, CMP, BNP #### [facility] [address] [place] [address] Dr. Michael GonzalesPotassium [Moles/Vol]4.3 mmol/LNormal3.5-5.1The [facility] Comment on above:Performed By: #### HSTROPN, CMP, BNP #### [facility] [address] [place] [address] Dr. Michael GonzalesProtein [Mass/Vol]7.9 g/dLNormal6.4-8.2The [facility] Comment on above:Performed By: #### HSTROPN, CMP, BNP #### [facility] [address] [place] [address] Dr. Michael GonzalesSodium [Moles/Vol]132 mmol/LCritically oht003-589Brk [facility] HospitalComment on above:Performed By: #### HSTROPN, CMP, BNP #### [facility] [address] [place] [address] Dr. Michael Hernandez nitrogen [Mass/Vol]33.0 mg/dLCritically high7.0-18.0The [facility] HospitalComment on above:Performed By: #### HSTROPN, CMP, BNP #### [facility] [address] [place] [address] Dr. Michael Hernandez nitrogen/Creatinine [Mass ratio]15.9 mg/mgNoTrinity Health System Twin City Medical CenterComment on above:Performed By: #### HSTROPN, CMP, BNP #### [facility] [address] [place] [address] Dr. Michael Galicia 42-06-9147CBW Coag (PPP) [Relative time]0.93 {INR} NormalOhiohealth Berger HospitalComment on above:Performed By: #### PTT, PT #### [facility] [address] [place] [address] Dr. Michael Robb GUIDELINESSEE BELOWKettering Health TroyComment on above:Result Comment: DESIRED INR: 2.0 - 3.0 CONDITIONS NOT LISTED BELOW 2.5 - 3.5 FOR PROSTHETIC HEART VALVE REPLACEMENT 2.5 - 3.5 RECURRENT THROMBOSIS Performed By: #### PTT, PT #### [facility] [address] [place] [address] Dr. Michael GonzalesPT Coag (PPP) [Time]9.9 sNormal9.0-11.6The [facility] Comment on above:Performed By: #### PTT, PT #### [facility] [address] [place] [address] Dr. Michael Baca 73-89-4261hDML Coag (Bld) [Time]26.5 lSkfntq40.3-36.2The [facility] HospitalComment on above:Performed By: #### PTT, PT #### [facility] [address], [place] [address] Dr. Michael Florez, HIGH SENSITIVITYon 58-12-0214CCVBBD3.3 pg/mLNormal 4.0-76.1The [facility] HospitalComment on above:Result Comment: CUT-OFF POINTS HAVE BEEN ESTABLISHED BASED ON THE FOURTH UNIVERSAL DEFINITIONS OF MYOCARDIAL INFARCTION. THE UPPER REFERENCE LIMIT (URL) OF TROPONIN, DEFINED THE 99TH PERCENTILE OF cTnI DISTRIBUTION IN A REFERENCE POPULATION, HAS BEEN CONFIRMED THE DECISION THRESHOLD FOR NC DIAGNOSIS.Performed By: #### HSTROPN, CMP, BNP #### [facility] [address], [place] [address] Dr. Michael GonzalesXR FOOT LEFT 3+ VIEWS (STANDARD)on 64-88-5306DWIPPBRW/ Severe destructive changes at the midfoot and [...] ID: [id number] FOOT LEFT 3+ VIEWS (STANDARD)on 05-77-2294PI FOOT LEFT 3+ VIEWS (STANDARD)EXAMINATION: XR FOOT [...] ID: [id number] Dictated by: RAMONE HAWTHORNE on [facility] Jan 25, 2021 1:58:20 PM EST Transcribed by: RAMONE HAWTHORNE on [facility] Jan 25, 2021 1:58:20 PM EST Finalized by: RAMONE HAWTHORNE on [facility] Jan 25, 2021 1:58:20 PM [facility] on above:Order Comment: Injury/Trauma or Illness?:Illness/Other How long have you had these symptoms (acute/chronic)?:Acute Reason for exam?:non healing wound on top of foot History of cancer?: Surgeries, chemotherapy, or radiation?: Type of Exam?:Initial Additional signs and symptoms?:painOtheron 53-35-5916Iq acute osseous abnormality. Workstation ID: [id number]: XR [...] Soft tissues are diffusely edematous with skin thickening.[facility] - 01/09/2021 4:13 PM EST EXAMINATION: [...] ID: [id number] ANKLE LEFT 3+ VIEWS (STANDARD)on 35-21-4838QP ANKLE LEFT 3+ VIEWS (STANDARD)EXAMINATION: XR ANKLE [...] LEGGETT on WedJan 09, 2021 4:10:37 PM ESTCleveland Clinic Mercy HospitalComment on above:Order Comment: Injury/Trauma or Illness?:Illness/Other How long have you had these symptoms (acute/chronic)?:Acute Reason for exam?:charcot joint of ankle History of cancer?: Surgeries, chemotherapy, or radiation?: Type of Exam?:Initial Additional signs and symptoms?:XR FOOT LEFT 3+ VIEWS (STANDARD)on 31-94-8963KN FOOT LEFT 3+ VIEWS (STANDARD)EXAMINATION: XR ANKLE [...] on Barbara Jan 09, 2021 4:10:37 PM [facility] HealthComment on above:Order Comment: Injury/Trauma or Illness?:Illness/Other How long have you had these symptoms (acute/chronic)?:Acute Reason for exam?:open wound History of cancer?: Surgeries, chemotherapy, or radiation?: Type of Exam?:Initial Additional signs and symptoms?:Biopsyon 26-75-0140Cyttnadia Cherry DPM 12/27/2020 11:33 PM Biopsy Timeout: Verbal Consent obtained?: Yes Consent given by:: Patient Procedure: Procedure Performed for: Bone Biopsy - Left foot Performed by: Physician Additional Procedure details:: A bone biopsy of the midfoot was obtained using a rongeur and sent to microbiology for culture and sensitivity Response to Treatment:: Procedure was tolerated wellOhioHealthBasic Metabolic Panelon 92-95-0535Xdeor gap [Moles/Vol]9 mmol/LLow10 - 20 mmol/L OhioHealthCalcium [Mass/Vol]8.9 mg/dL8.4 - 10.2 mg/dLOhioHealthChloride [Moles/Vol]104 mmol/L98 - 108 mmol/LOhioHealthCreatinine [Mass/Vol]1.01 mg/dL 0.50 - 1.30OhioHealthGFR/1.73 sq M predicted among non-blacks MDRD (S/P/Bld) [Vol rate/Area]The eGFR should be used for monitoring renal function only and not for medication dosing.OhioHealthGFR/1.73 sq M.predicted CKD-EPI (S/P/Bld) [Vol rate/Area]84>=60 mL/min/1.73 s9CgqoNaavuoBmrwpuv [Mass/Vol]156 mg/sEEiym12 - 99 mg/dLOhioHealthHCO3 [Moles/Vol]27 mmol/L21 - 32 mmol/LOhioHealth Interpretation and review of laboratory resultsAbnormalOhioHealthPotassium [Moles/Vol]3.8 mmol/L3.5 - 5.1 mmol/LOhioHealthSodium [Moles/Vol]136 mmol/L135 - 145 mmol/LOhioHealthUrea nitrogen [Mass/Vol]15 mg/dL8 - 25 mg/dLOhioHealthUrea nitrogen/Creatinine [Mass ratio]14.9 mg/mgOhioHealthCBCon 26-18-2018Yxunordzqol distribution width (RBC) [Entitic vol]15.4 %High11.6 - 14.8 %[facility] Hematocrit (Bld) [Volume fraction]34.1 %Low41 - 53 %OhioMetrohealth [facility] Medical CenterHemoglobin (Bld) [Mass/Vol]10.3 g/dLLow13.5 - 17.5 g/dLOhioHealthInterpretation and review of laboratory resultsAbnormalOhioHealthMCH (RBC) [Entitic mass]25.5 pgLow26 - 34 pg [facility] Medical CenterMCHC (RBC) [Mass/Vol]30.2 g/dLLow31 - 37 g/dLOhioHealthMCV (RBC) [Entitic vol]84.4 fL80 - 100 fLOhioHealthNucleated RBC (Bld) [#/Vol]0.00 10*3/uL OhioHealthNucleated RBC/100 WBC (Bld) [Ratio]0.0 %OhioMetrohealth [facility] Medical CenterPlatelet mean volume (Bld) [Entitic vol]10.0 fL9.4 - 12.4 fLOhioHealthPlatelets (Bld) [#/Vol]494 10*3/uLHighOhioHealthRBC (Bld) [#/Vol]4.04 10*6/uLLowOhioHealthWBC (Bld) [#/Vol] 6.26 10*3/uLOhioHealthMagnesium Levelon 36-81-8566Nguamqunxvdciv and review of laboratory resultsNormalOhioHealthMagnesium [Mass/Vol]1.8 mg/dL1.6 - 2.4 mg/dL [place] [facility] HospitalPOC Glucoseon 53-76-1243Rgvzjcz [Mass/Vol]157 mg/iVTczt30 - 99 mg/dL OhioHealthInterpretation and review of laboratory resultsAbnormalOhioHealth Glucose [Mass/Vol]132 mg/yOQwhp85 - 99 mg/dLOhioHealthInterpretation and review of laboratory resultsAbnormalOhioHealthGlucose [Mass/Vol]154 mg/uYYcdj63 - 99 mg/dLOhioHealthInterpretation and review of laboratory resultsAbnormalOhioHealth Basic Metabolic Panelon 89-74-5008Qshue gap [Moles/Vol]8 mmol/LLow10 - 20 mmol/L OhioHealthCalcium [Mass/Vol]8.6 mg/dL8.4 - 10.2 mg/dLOhioHealthChloride [Moles/Vol]103 mmol/L98 - 108 mmol/LOhioHealthCreatinine [Mass/Vol]1.02 mg/dL 0.50 - 1.30OhioHealthGFR/1.73 sq M predicted among non-blacks MDRD (S/P/Bld) [Vol rate/Area]The eGFR should be used for monitoring renal function only and not for medication dosing.OhioHealthGFR/1.73 sq M.predicted CKD-EPI (S/P/Bld) [Vol rate/Area]83>=60 mL/min/1.73 d4BnqgDgzlsuFdxnujj [Mass/Vol]151 mg/gLHzwh45 - 99 mg/dLOhioHealthHCO3 [Moles/Vol]28 mmol/L21 - 32 mmol/LOhioHealthPotassium [Moles/Vol]3.7 mmol/L3.5 - 5.1 mmol/LOhioHealthSodium [Moles/Vol]135 mmol/L135 - 145 mmol/LOhioHealthUrea nitrogen [Mass/Vol]13 mg/dL8 - 25 mg/dLOhioHealthUrea nitrogen/Creatinine [Mass ratio]12.7 mg/mgOhioHealthCBCon 98-16-1600Utolknwsweb distribution width (RBC) [Entitic vol]15.7 %High11.6 - 14.8 %[facility] Hematocrit (Bld) [Volume fraction]32.9 %Low41 - 53 %Ohio[facility] Medical CenterHemoglobin (Bld) [Mass/Vol]9.9 g/dLLow13.5 - 17.5 g/dLOhioHealthInterpretation and review of laboratory resultsAbnormalOhioHealthMCH (RBC) [Entitic mass]25.6 pgLow26 - 34 pg OhioHealthMCHC (RBC) [Mass/Vol]30.1 g/dLLow31 - 37 g/dLOhioHealthMCV (RBC) [Entitic vol]85.0 fL80 - 100 fLOhioHealthNucleated RBC (Bld) [#/Vol]0.00 10*3/uL OhioHealthNucleated RBC/100 WBC (Bld) [Ratio]0.0 %OhioHealthPlatelet mean volume (Bld) [Entitic vol]10.2 fL9.4 - 12.4 fLOhioHealthPlatelets (Bld) [#/Vol]512 10*3/uLHighOhioHealthRBC (Bld) [#/Vol]3.87 10*6/uLLowOhioHealthWBC (Bld) [#/Vol] 7.74 10*3/uLOhioHealthCRP, Inflammationon 51-10-8743BFM [Mass/Vol]162.0 mg/LHigh <=10.0OhioHealthMagnesium Levelon 27-21-2312Abtgayasyzsmrr and review of laboratory resultsNormalOhioHealthMagnesium [Mass/Vol]1.7 mg/dL1.6 - 2.4 mg/dL OhioHealthOtheron 08-11-5473Ptgkzzdnyteoje and review of laboratory results AbnormalOhioHealthPOC Glucoseon 09-89-7509Xcxxruz [Mass/Vol]121 mg/sNEtkz68 - 99 mg/dLOhioHealthInterpretation and review of laboratory resultsAbnormal OhioHealthGlucose [Mass/Vol]117 mg/rNAjjz12 - 99 mg/dLOhioHealthInterpretation and review of laboratory resultsAbnormalOhioHealthGlucose [Mass/Vol]147 mg/dL High65 - 99 mg/dLOhioHealthInterpretation and review of laboratory results AbnormalOhioHealthGlucose [Mass/Vol]177 mg/aUAzfw98 - 99 mg/dLOhioHealth Interpretation and review of laboratory resultsAbnormalOhioHealthSedimentation Rateon 83-04-1180DGN (Bld) [Velocity]116 mm/hHighOhioHealthInterpretation and review of laboratory resultsAbnormalOhioHealthTISSUE EXAMon 25-21-0123Jtnb ReportSurgical Pathology Report Case: [id number] Authorizing Provider: Leanne Cherry DPM Collected: 11/18/2020 12:59 PM Ordering Location: [facility] Received: 11/18/2020 01:28 PM Pathologist: Boy Cortez MD Specimen: Foot, Left, Left Foot Bone [facility] CenterPathology report final diagnosis Narrative n9qtqVSbNNXalUT2TzBcNJApl5hbz3SarLErgQPzKNnrfMWplaUqkt44iSE4zJ36WF5tYYRuMfF7KARw khT3Wil7RYAaNMIssVCj U377p5vyo7tcynAukNJ4yRutJKHjXTIzWFcyLOXsUeRgAIQTKtHtSAIlk5WtC0N6OXOmQBbri3yzVHCw LLllt4JgMKkGHHZUGX2X LG1isDC6PEhGUVNCA1mPtSH7VyS0mMH0CA32YJNfUOFvrUMkJGeaU359Lr2bKXQzibCquYMixIIcWOsr ya33LYW8PCxbBqzcfLE4 IUswLnisyV2yuBDCNKZKUvjNTmpkyoXuVH9PPUzPHqIEWD06Kz96IIDlYGGrrBCwWAlvQ214QUCwoLVH q181y7fucBUcICsmVayl aODfrpO2PPiETSQTBXnEVuDuJV8rSKpREFJENnE4Xf16UYDrCIWieKRwVUrpU060QNVbRLmtBXNrk4Mw R0OrEqdxicSnKYboUSej pCSmu413a0fidVKlBBzqKvwubBIkujO2RFpMPVPLOXmCOiBsLC8qZGgUC8XCZqT5RlOiSNC8YSkhcYus BihbayIdrKRhUtSjxV0m hHeejF0bYejqvpFfCCDlgzevbCneRDjtsN72FcDeAbAaMMX7yKJik4O9RH4jkEZqmQItdu0owHAwWZNg vaHpeKApMPRhF54LFsQX ZEWGJ42WDIBXEEYAM9CZE1cDEWR9OwB0fLP2XwV1OdwbQKXAIIEYALsANF9MLYITYWZAOD6YDmJpQ5bJ RENBUkRfTUVUQURBVEFf UfNRKL2kBrq2WKXkySVPp711Y9uQERLFVyXsCJKPRYFXMJRtPN7DVWZSARXUFY9BQKVNJ98TEPKNJFXL J8FEI1wXOXMrg4OWdPNc eUL5CfFtYCE2UfwgSR6hIDfKY7SSC9pDYCOlQWRMTVAJQMRbON1OZPfATC6KQQDeMABLRGRIAAOxUeLW BU9cQOdAXA9JVFSzKYIS XODQZIAsUQ8TVQOYRG9KNXCGZUSGA99BIKLHIVVXC8TEK3cRETZWGYOEKnOJZyTXZX0JAYDREISVCQ0K SdI2BkpgMdwyicPapfldjsc report gross observation Narrative w3avqJExKEFfsHC8AdYvZTTlb5hbg1PgoSFctPVoSXlxxOBgxjHmkl33rRD5bH75GG2gFHOaSkD5DJSs xoW2Jlw5GDIiUSZwhDNr Y629g6uht6jgqqZidCM0aStsPILaCCDcRFhcOEGtTmZvGdVmBFa4XDGrlG3zLu1rlFFnoU4oXFHto3ls dhB6STSyIbZhOl4osRim PPPunOZCl53dBvumJKEgd3McX5L7FBWkFOtpi8onKRAaTLpbj8QuKOlNBHSAUI9VDU9zmQJ4BFvDJXLS N6gEoMU2TWQdiOA5VQ99 IDPtHDIrmPElHFjqR543jXFuDGiaEtnyyHR4HMzjNncukB8fgTGONXMBZxrMQuzbnsHzLH4OBHHHNK3Q xWN0WLPnfQS2PJ19WDJf FNHmiUYmUQjiF552PUMqFKkfTTYcQzQiRHKoTLbyXZ29XUJkJU4zWRBaprDdxXDct8JcnG6gCHIfJIX6 CJYxDaR4PSYrFdAmqXew yk26OVQ5e3bisPRlFYxgBisggRCnpgO7KAjDMMTCVBiYOwQzGO2oNJuID1PMFJjXWiotGEF2L6acsEO7 n6ufqQEgh8k6SRpdFOK9 pO63DOAxBAfwi4isIWEdBMdzp8YxZMiLFECBFD8NSR6jvUB4TTxBXIMYJLncWTM0R9glbEM6c0mwcRIt c1f8MYmvCFP6wQysiLIe fejwyeAfXTVuT4QsnVy2mRUfXIZyreDtMTSlcJRbEvzqZPFqy67vNVDYx2MlvNx2PKX6Gg4nlJZpHIGf hkCuJDUct7HtaBOiRORe BwlkLCGqkJVqRWenZNIoVH0vtKWdODifi3RwDMS4ZD3khvA2yH9bVISylrZhhk7wKDTuiDcjUSUqw3Ee EZisHBrpc2YgkXPwKV4a ZjG6WHplFWPwgsPmCMA4KM30IDRKXH3mDefpmRPdBV7NGTD4BARbDPFdhnbwPDUuAHCyHztoRDClssJJ GPNPEVzHR6WeZJLDYLES BLJhRaSCQR4cRdJzXBL9VU2jAsX9ERUenMW5HYNBCGFLFFbHI1UuXRFMQDOMVKIvIQ8UABuCBAFGTTXK M25EFLUZGURAP0HJR2dT ZOqCGAQZABFUM94VOSELCDOAK4LUKPPNBMMTZCfDUTSOFy4OSBOFHVACUD8ZHVhDJsAzGSyEHS44xDLr gfCsCXmqDUP7MJx5YhAl oVZjn2AMIOvfSNFvH1ReA6C6XTjsZWD3Fpb0CqDpsLTYBVXKNQgIMYMJLa3UAYBVEJPDCH0YFaIjL8AS MN6EVh3UZVUFZXDROD7H YUaTCoMlZ9JLKJ4XGo9VAYHODOMCGO9OKyIvJXFVM5NABnDDJ7rwMLDTXZZMHQGgPmNJRC8qGPQVST0Z GAZHMLVQZ94PUWODDSZXV3ITDW6=UebiWocjgeQxtcwhhje report microscopic observation Narrative Other stain r3wzqDXtCZQxfKKpWfDcGWWeHCLpz8raGCSooSOiGhLhVjNqJvXoGeaqtMZvDBDuAhIvs1zjv420hFXy d3wtDTOeLhN4iISoJBBv wCCiE168GZPvQFoaj1qvb8TrYPQayEHen8S6UEDRioermWp2yIkeC96ez0L4HavwH1miCBTsNIJqL9Dy OB4pQTMfSea9AOB1BVR3 LUEfAYFlO4NnLP1hBYGygHLlJFd3d3tasUffPROxKSA0j7ywMFmdfqIoKI9uwf0zeXm4x4ttkvEgNYCo AHMrdBLMNVDwM3YbdVbb Qv7cmPy4fUlyKcecCMD5Emg6KZ7kiz29ugx3zAlbXXOdxnowSzB7KYoeAFJqldtsENl7KYabDYTopVA1 RQXdgTIsI6NaETRgJZ6j ecj4OVD7CLguWARaOeO5ZVYezWHzTKCgwQgeSNilq949KHB6KkTbDK6rW7Ucz7Z8bY4jzLDsMOQwzZRn QkRxDGSqmk1bxSIoFZgz p1GnLWC5etW5qYNmkRZaHSSsZG27Lsrsm5WsMaaeFMW7NEImnyKxg9Zqy0gsOoIitiWmL0aiW3GeUQLu LEHyTRLwGiKhdtMek3Ke i6SeyXFriYy1m4rjXBAzZQGuhXlnv5bpFZW9XPJdI8P9sLIej3tjORaqBCVtcZO1ftK2LIXhnWZqA5Ns tK6hALQxND2ygsh6w4vu CEI4AFvfHKFnHxL9dsW3UITqlJUhOCMxvCvwAXpap807MLK0LoMkNAJmk7TlZ9DysJhgC71cvKmzZ12a GYJhkJgjfE9gqAetfC8m MjXzHjCtJMwunXuttZIjldzxLZiyniYyEGuhfwdiCMDvOGupO3qkPbLsSOBipNfrEIkkx2XiCERdLOCn AkDcBIpbkl0bF30trWUwYYpmlOqpWOYbi05uiFPptYJrCa5gsJKaIdozINN2NtqoJybdlyPTKHE AEROBIC CULTUREon 60-71-8507Yulbinnl identified Aer cx Nom (Wound)Rare growth Staphylococcus aureusAbnormalOhioHealthComment on above:This Staphylococcus aureus is Methicillin SUSCEPTIBLE by PBP2a testing. Beta-lactams like Cefazolin and Nafcillin are superior to Vancomycin for treating mSsa.Interpretation and review of laboratory resultsAbnormalOhioHealthMicroscopic observation Gram stain Nom (Wound)No Organisms SeenOhioHealthMicroscopic observation Gram stain Nom (Wound)Many WBCOhioHealthMicroscopic observation Gram stain Nom (Wound)No Epithelial Cells SeenOhioHealthBasic Metabolic Panelon 13-28-8365Ackpt gap [Moles/Vol]12 mmol/L10 - 20 mmol/LOhioHealthCalcium [Mass/Vol]8.8 mg/dL8.4 - 10.2 mg/dLOhioHealthChloride [Moles/Vol]103 mmol/L98 - 108 mmol/LOhioHealth Creatinine [Mass/Vol]0.92 mg/dL0.50 - 1.30OhioHealthGFR/1.73 sq M predicted among non-blacks MDRD (S/P/Bld) [Vol rate/Area]The eGFR should be used for monitoring renal function only and not for medication dosing.[facility] sq M.predicted CKD-EPI (S/P/Bld) [Vol rate/Area]94>=60 mL/min/1.73 z7IayqTvftui Glucose [Mass/Vol]132 mg/wGOgia13 - 99 mg/dLOhioHealthHCO3 [Moles/Vol]25 mmol/L 21 - 32 mmol/LOhioHealthInterpretation and review of laboratory resultsAbnormal OhioHealthPotassium [Moles/Vol]3.8 mmol/L3.5 - 5.1 mmol/LOhioHealthSodium [Moles/Vol]136 mmol/L135 - 145 mmol/LOhioHealthUrea nitrogen [Mass/Vol]12 mg/dL8 - 25 mg/dLOhioHealthUrea nitrogen/Creatinine [Mass ratio]13.0 mg/mgOhioHealth CBCon 05-56-2406Coepwtoipnm distribution width (RBC) [Entitic vol]15.7 %High11.6 - 14.8 %[facility]Met[facility] Medical CenterHematocrit (Bld) [Volume fraction]33.2 %Low41 - 53 %[facility] Hemoglobin (Bld) [Mass/Vol]10.2 g/dLLow13.5 - 17.5 g/dLOhioHealthInterpretation and review of laboratory resultsAbnormalOhioHealthMCH (RBC) [Entitic mass]25.5 pgLow26 - 34 pgOhioHealthMCHC (RBC) [Mass/Vol]30.7 g/dLLow31 - 37 g/dLOhioHealth MCV (RBC) [Entitic vol]83.0 fL80 - 100 fLOhioHealthNucleated RBC (Bld) [#/Vol] 0.00 10*3/uLOhioHealthNucleated RBC/100 WBC (Bld) [Ratio]0.0 %OhioMet[facility] Medical CenterPlatelet mean volume (Bld) [Entitic vol]9.9 fL9.4 - 12.4 fLOhioHealthPlatelets (Bld) [#/Vol]596 10*3/uLHighOhioHealthRBC (Bld) [#/Vol]4.00 10*6/uLLowOhioHealthWBC (Bld) [#/Vol]10.04 10*3/uLOhioHealthMagnesium Levelon 48-00-1312Gbrscgalnrulpb and review of laboratory resultsNormalOhioHealthMagnesium [Mass/Vol]1.7 mg/dL1.6 - 2.4 mg/dLOhioHealthPOC Glucoseon 81-25-8001Topaupx [Mass/Vol]174 mg/lIOhze06 - 99 mg/dLOhioHealthInterpretation and review of laboratory resultsAbnormal OhioHealthGlucose [Mass/Vol]180 mg/aCEhmd69 - 99 mg/dLOhioHealthInterpretation and review of laboratory resultsAbnormalOhioHealthGlucose [Mass/Vol]166 mg/dL High65 - 99 mg/dLOhioHealthInterpretation and review of laboratory results AbnormalOhioHealthGlucose [Mass/Vol]127 mg/sQTqay80 - 99 mg/dLOhioHealth Interpretation and review of laboratory resultsAbnormalOhioHealthBasic Metabolic Panelon 52-86-7208Abnyo gap [Moles/Vol]10 mmol/L10 - 20 mmol/LOhioHealthCalcium [Mass/Vol]8.7 mg/dL8.4 - 10.2 mg/dLOhioHealthChloride [Moles/Vol]104 mmol/L98 - 108 mmol/LOhioHealthCreatinine [Mass/Vol]0.99 mg/dL0.50 - 1.30[facility] GFR/1.73 sq M predicted among non-blacks MDRD (S/P/Bld) [Vol rate/Area]The eGFR should be used for monitoring renal function only and not for medication dosing. [facility]GFR/1.73 sq M.predicted CKD-EPI (S/P/Bld) [Vol rate/Area]86>=60 mL/min/1.73 b1LqlqBgyjzyZfecsuq [Mass/Vol]136 mg/yERueq60 - 99 mg/dLOhioHealth HCO3 [Moles/Vol]27 mmol/L21 - 32 mmol/LOhioHealthInterpretation and review of laboratory resultsAbnormalOhioHealthPotassium [Moles/Vol]3.8 mmol/L3.5 - 5.1 mmol/LOhioHealthSodium [Moles/Vol]137 mmol/L135 - 145 mmol/LOhioHealthUrea nitrogen [Mass/Vol]12 mg/dL8 - 25 mg/dLOhioHealthUrea nitrogen/Creatinine [Mass ratio]12.1 mg/mgOhioHealthCBCon 07-97-6120Jnrkmmlbdbm distribution width (RBC) [Entitic vol]15.9 %High11.6 - [...] [#/Vol] 4.25 10*6/uLLowOhioHealthWBC (Bld) [#/Vol]8.56 10*3/uLOhioHealthCRP, Inflammationon 55-41-2645LMM [Mass/Vol]132.0 mg/LHigh<=10.0Ohio[facility] Interpretation and review of laboratory resultsAbnormalOhioHealthMagnesium Level on 82-40-7845Almpehfmamqdor and review of laboratory resultsNormalOhioHealth Magnesium [Mass/Vol]1.8 mg/dL1.6 - 2.4 mg/dLOhioHealthPOC Glucoseon 11-18-2020 Glucose [Mass/Vol]175 mg/vKNjdj30 - 99 mg/dLOhioHealthInterpretation and review of laboratory resultsAbnormalOhioHealthGlucose [Mass/Vol]111 mg/uIIhdt47 - 99 mg/dLOhioHealthInterpretation and review of laboratory resultsAbnormalOhioHealth Glucose [Mass/Vol]133 mg/oNOeqa35 - 99 mg/dLOhioHealthInterpretation and review of laboratory resultsAbnormalOhioHealthGlucose [Mass/Vol]154 mg/qOJaia94 - 99 mg/dLOhioHealthInterpretation and review of laboratory resultsAbnormalOhioHealth Sedimentation Rateon 70-51-3556QOU (Bld) [Velocity]110 mm/hHighOhioHealth Interpretation and review of laboratory resultsAbnormalOhioHealthAPTTon 12-42-1287wLVS Coag (Bld) [Time]Therapeutic range for APTT's is 68 - 104 seconds [facility] HospitalaPTT Coag (Bld) [Time]32 sOhioHealthInterpretation and review of laboratory resultsNormalOhioHealthBasic Metabolic Panelon 04-88-3298Rhfgx gap [Moles/Vol]9 mmol/LLow10 - 20 mmol/LOhioHealthCalcium [Mass/Vol]8.6 mg/dL8.4 - 10.2 mg/dLOhioHealthChloride [Moles/Vol]105 mmol/L98 - 108 mmol/LOhioHealth Creatinine [Mass/Vol]0.94 mg/dL0.50 - 1.30OhioHealthGFR/1.73 sq M predicted among non-blacks MDRD (S/P/Bld) [Vol rate/Area]The eGFR should be used for monitoring renal function only and not for medication dosing.OhioHealthGFR/1.73 sq M.predicted CKD-EPI (S/P/Bld) [Vol rate/Area]92>=60 mL/min/1.73 j8GnbrPbanll Glucose [Mass/Vol]86 mg/dL65 - 99 mg/dLOhioHealthHCO3 [Moles/Vol]26 mmol/L21 - 32 mmol/LOhioHealthInterpretation and review of laboratory resultsAbnormal OhioHealthPotassium [Moles/Vol]3.9 mmol/L3.5 - 5.1 mmol/LOhioHealthSodium [Moles/Vol]136 mmol/L135 - 145 mmol/LOhioHealthUrea nitrogen [Mass/Vol]11 mg/dL8 - 25 mg/dLOhioHealthUrea nitrogen/Creatinine [Mass ratio]11.7 mg/mgOhioHealth CBC WITH AUTO DIFFERENTIALon 08-18-4207Adxoxiivw (Bld) [#/Vol]0.07 10*3/uL OhioHealthBasophils/100 WBC (Bld)0.7 %OhioHealthEosinophils (Bld) [#/Vol]0.21 10*3/uLOhioHealthEosinophils/100 WBC (Bld)2.2 %[facility] HospitalErythrocyte distribution width (RBC) [Entitic vol]15.9 %High11.6 - 14.8 %[facility] Hematocrit (Bld) [Volume fraction]36.4 %Low41 - 53 %[facility] CenterHemoglobin (Bld) [Mass/Vol]11.0 g/dLLow13.5 - 17.5 g/dLOhioHealthImmature granulocytes (Bld) [#/Vol]0.11 10*3/uLOhioHealthImmature granulocytes/100 WBC (Bld)1.20 %[facility] Comment on above:The IG parameter is [...] %OhioHealthNeutrophils (Bld) [#/Vol]5.78 10*3/uL OhioHealthNeutrophils/100 WBC (Bld)61.5 %[facility] Medical CenterNucleated RBC (Bld) [#/Vol] 0.00 10*3/uLOhioHealthNucleated RBC/100 WBC (Bld) [Ratio]0.0 %OhioHealthPlatelet mean volume (Bld) [Entitic vol]10.2 fL9.4 - 12.4 fLOhioHealthPlatelets (Bld) [#/Vol]644 10*3/uLHighOhioHealthRBC (Bld) [#/Vol]4.26 10*6/uLLowOhioHealthWBC (Bld) [#/Vol]9.40 10*3/uLOhioHealthMagnesium Levelon 86-98-8109Axxmkfimvbezcn and review of laboratory resultsNormalOhioHealthMagnesium [Mass/Vol]1.8 mg/dL1.6 - 2.4 mg/dLOhioHealthPOC Glucoseon 24-50-6052Xmyurdm [Mass/Vol]192 mg/dRSqra62 - 99 mg/dLOhioHealthInterpretation and review of laboratory resultsAbnormal OhioHealthGlucose [Mass/Vol]132 mg/kARrfq51 - 99 mg/dLOhioHealthInterpretation and review of laboratory resultsAbnormalOhioHealthGlucose [Mass/Vol]148 mg/dL High65 - 99 mg/dLOhioHealthInterpretation and review of laboratory results AbnormalOhioHealthGlucose [Mass/Vol]94 mg/dL65 - 99 mg/dLOhioHealth Interpretation and review of laboratory resultsNormalOhioHealthBasic Metabolic Panelon 40-14-7493Cosbr gap [Moles/Vol]8 mmol/LLow10 - 20 mmol/LOhioHealth Calcium [Mass/Vol]8.6 mg/dL8.4 - 10.2 mg/dLOhioHealthChloride [Moles/Vol]104 mmol/L98 - 108 mmol/LOhioHealthCreatinine [Mass/Vol]1.03 mg/dL0.50 - 1.30 OhioHealthGFR/1.73 sq M predicted among non-blacks MDRD (S/P/Bld) [Vol rate/Area]The eGFR should be used for monitoring renal function only and not for medication dosing.OhioHealthGFR/1.73 sq M.predicted CKD-EPI (S/P/Bld) [Vol rate/Area]82>=60 mL/min/1.73 q6TajtTrjbouKcbtvmz [Mass/Vol]103 mg/wDWjvp80 - 99 mg/dLOhioHealthHCO3 [Moles/Vol]30 mmol/L21 - 32 mmol/LOhioHealthInterpretation and review of laboratory resultsAbnormalOhioHealthPotassium [Moles/Vol]3.7 mmol/L3.5 - 5.1 mmol/LOhioHealthSodium [Moles/Vol]138 mmol/L135 - 145 mmol/L OhioHealthUrea nitrogen [Mass/Vol]10 mg/dL8 - 25 mg/dLOhioHealthUrea nitrogen/Creatinine [Mass ratio]9.7 mg/mgLowOhioHealthBone Anaerobic Cultureon 80-52-6616Ldzqcfmk identified Anaer cx Nom (Unsp spec)No Anaerobic Growth at 5 DaysOhioHealthCBCon 40-72-1918Mzeqwhwoott distribution width (RBC) [Entitic vol] 15.9 %High11.6 [...] resultsNormalOhioHealthMagnesium [Mass/Vol]1.8 mg/dL1.6 - 2.4 mg/dLOhioHealthPOC Glucoseon 73-77-2085Otnfdkr [Mass/Vol]157 mg/iLQfll01 - 99 mg/dLOhioHealthInterpretation and review of laboratory resultsAbnormalOhioHealthGlucose [Mass/Vol]105 mg/xZPxha29 - 99 mg/dL OhioHealthInterpretation and review of laboratory resultsAbnormalOhioHealth Glucose [Mass/Vol]147 mg/kLHuwg27 - 99 mg/dLOhioHealthInterpretation and review of laboratory resultsAbnormalOhioHealthGlucose [Mass/Vol]100 mg/rXUogx56 - 99 mg/dLOhioHealthInterpretation and review of laboratory resultsAbnormalOhioHealth Sedimentation Rateon 23-16-7214EPP (Bld) [Velocity]113 mm/hHighOhioHealth Interpretation and review of laboratory resultsAbnormalOhioHealthBasic Metabolic Panelon 31-32-7028Adbcf gap [Moles/Vol]9 mmol/LLow10 - 20 mmol/LOhioHealth Calcium [Mass/Vol]8.4 mg/dL8.4 - 10.2 mg/dLOhioHealthChloride [Moles/Vol]106 mmol/L98 - 108 mmol/LOhioHealthCreatinine [Mass/Vol]0.89 mg/dL0.50 - 1.30 OhioHealthGFR/1.73 sq M predicted among non-blacks MDRD (S/P/Bld) [Vol rate/Area]The eGFR should be used for monitoring renal function only and not for medication dosing.OhioHealthGFR/1.73 sq M.predicted CKD-EPI (S/P/Bld) [Vol rate/Area]97>=60 mL/min/1.73 l2AldnNfftbvZaejvms [Mass/Vol]139 mg/lEDvyx65 - 99 mg/dLOhioHealthHCO3 [Moles/Vol]26 mmol/L21 - 32 mmol/LOhioHealthInterpretation and review of laboratory resultsAbnormalOhioHealthPotassium [Moles/Vol]3.7 mmol/L3.5 - 5.1 mmol/LOhioHealthSodium [Moles/Vol]137 mmol/L135 - 145 mmol/L OhioHealthUrea nitrogen [Mass/Vol]14 mg/dL8 - 25 mg/dLOhioHealthUrea nitrogen/Creatinine [Mass ratio]15.7 mg/mgOhioHealthBone Aerobic Cultureon 44-44-5617Zwczqueq identified Aer cx Nom (Bone)Rare growth Staphylococcus aureus AbnormalOhioHealthComment on above:This Staphylococcus aureus is Methicillin SUSCEPTIBLE by PBP2a testing. Beta-lactams like Cefazolinand Nafcillin are superior to Vancomycin for treating mSsa.Interpretation and review of laboratory resultsAbnormalOhioHealthMicroscopic observation Gram stain Nom (Unsp spec)No Organisms SeenOhioHealthMicroscopic observation Gram stain Nom (Unsp spec)Rare WBCOhioHealthMicroscopic observation Gram stain Nom (Unsp spec)No Epithelial Cells SeenOhioHealthCBCon 49-39-7834Vxmdcfneyej distribution width (RBC) [Entitic vol]15.9 %High11.6 - [...] (Bld) [#/Vol]8.97 10*3/uLOhioHealthCT ABDOMEN PELVIS WITHOUT CONTRASTon 47-60-5239CI ABDOMEN PELVIS WITHOUT CONTRAST EXAMINATION: CT ABDOMEN PELVIS WITHOUT CONTRAST - 11/15/2020 COMPARISON: CT angiogram chest from [facility] dated 11/05/2020. No prior CT imaging of [...] perinephric fluid collections or ascites. There is ycsadsju-ai-ztlmc amount of retained stool in the proximal colon and zucgx-bk-axzuecko amount of retained stool in the distal [...] retained stool in the proximal colon and wkron-ky-barjutjb amount of retained stool in the distal colon, which could be related to a mild colonic ileus. No evidence of a bowel obstruction. 3. Mild pelvic and inguinal lymphadenopathy that may be reactive. 4. Questionable sludge or gallstones in the gallbladder. No evidence of cholecystitis. 5. Trace pleural effusions and mild atelectasis in both lung bases. [employer] Workstation ID: [id number] Dictated by: AMNA PEÑA on WedNov 15, 2020 2:11:25 PM EST Transcribed by: LUTHER TREJO on WedNov 15, 2020 2:15:19 PM EST Finalized by: AMNA PEÑA on WedNov 15, 2020 2:30:[address] HospitalComment on above:Order Comment: Injury/Trauma or Illness?:Illness/Other How long have you had these symptoms (acute/chronic)?:Acute Reason for exam?:non healing wound on top of foot History of cancer?: Surgeries, chemotherapy, or radiation?: Type of Exam?:Initial Additional signs and symptoms?:painCT Abdomen Pelvis Without Contraston 77-99-4757Yynnmpvhr, Rad In [employer] Speechq - 11/15/2020 2:32 PM EST EXAMINATION: CT ABDOMEN PELVIS WITHOUT CONTRAST - 11/15/2020 COMPARISON: CT angiogram chest from [facility] dated 11/05/2020. No prior CT imaging of [...] perinephric fluid collections or ascites. There is pujkhvfg-hl-fqlho amount of retained stool in the proximal colon and ihyfj-od-eseqsoqc amount of retained stool in the distal [...] retained stool in the proximal colon and circn-ut-jfifovyu amount of retained stool in the distal colon, which could be related to a mild colonic ileus. No evidence of a bowel obstruction. 3. Mild pelvic and inguinal lymphadenopathy that may be reactive. 4. Questionable sludge or gallstones in the gallbladder. No evidence of cholecystitis. 5. Trace pleural effusions and mild atelectasis in both lung bases. [employer] Workstation ID: [id number]: CT ABDOMEN PELVIS WITHOUT CONTRAST - 11/15/2020 COMPARISON: CT angiogram chest from [facility] dated 11/05/2020. No prior CT imaging of [...] No perinephric fluidcollections or ascites. There is hrhgjmbk-yp-agpgv amount of retained stool in the proximal colon and cvhef-ik-iqwwywxe amount of retained stool in the distal [...] retained stool in the proximal colon and tnnpd-fi-usooxdtf amount of retained stool in the distal colon, which could be related to a mild colonic ileus. No evidence of a bowel obstruction. 3. Mild pelvic and inguinal lymphadenopathy that may be reactive. 4. Questionable sludge or gallstones in the gallbladder. No evidence of cholecystitis. 5. Trace pleural effusions andmild atelectasis in both lung bases. [facility] Workstation ID: [id number] Levelon 20-75-2892Nvpdqsxsyxzklj and review of laboratory resultsNormalOhioHealthMagnesium [Mass/Vol]1.9 mg/dL1.6 - 2.4 mg/dL [facility] Glucoseon 95-02-9507Wrkxvxu [Mass/Vol]171 mg/vBPyqj43 - 99 mg/dL OhioHealthInterpretation and review of laboratory resultsAbnormalOhioHealth Glucose [Mass/Vol]122 mg/jQUsly61 - 99 mg/dLRiioHealthInterpretation and review of laboratory resultsAbnormalOhioHealthGlucose [Mass/Vol]129 mg/eLRffv52 - 99 mg/dLOhioHealthInterpretation and review of laboratory resultsAbnormalOhioHealth Glucose [Mass/Vol]142 mg/iEVrgd25 - 99 mg/dLOhioHealthInterpretation and review of laboratory resultsAbnormalOhioHealthXR FOOT LEFT 3+ VIEWS (STANDARD)on 41-67-2978YJ FOOT LEFT 3+ VIEWS (STANDARD)EXAMINATION: XR FOOT [...] REILLY on WedNov 15, 2020 7:35:52 PM [facility] HealthComment on above:Order Comment: Injury/Trauma or Illness?:Illness/Other How [...] or fracture. There is a plantar calcaneal spur.[facility] - 11/15/2020 7:38 PM EST EXAMINATION: XR [...] or fracture. Workstation ID: [id number] Metabolic Panelon 50-72-7802Kspxq gap [Moles/Vol]8 mmol/LLow10 - 20 mmol/LOhioHealthCalcium [Mass/Vol]7.9 mg/dLLow8.4 - 10.2 mg/dLOhioHealthChloride [Moles/Vol]105 mmol/L98 - 108 mmol/LOhioHealth Creatinine [Mass/Vol]0.97 mg/dL0.50 - 1.30OhioHealthGFR/1.73 sq M predicted among non-blacks MDRD (S/P/Bld) [Vol rate/Area]The eGFR should be used for monitoring renal function only and not for medication dosing.OhioHealthGFR/1.73 sq M.predicted CKD-EPI (S/P/Bld) [Vol rate/Area]88>=60 mL/min/1.73 u7TytsJjtjgm Glucose [Mass/Vol]153 mg/xDDlja93 - 99 mg/dLOhioHealthHCO3 [Moles/Vol]26 mmol/L 21 - 32 mmol/LOhioHealthInterpretation and review of laboratory resultsAbnormal OhioHealthPotassium [Moles/Vol]4.0 mmol/L3.5 - 5.1 mmol/LOhioHealthSodium [Moles/Vol]135 mmol/L135 - 145 mmol/LOhioHealthUrea nitrogen [Mass/Vol]14 mg/dL8 - 25 mg/dLOhioHealthUrea nitrogen/Creatinine [Mass ratio]14.4 mg/mgOhioHealth CBCon 39-94-1684Uhlguqpvjka distribution width (RBC) [Entitic vol]16.1 %High11.6 - 14.8 %OhioHealthHematocrit (Bld) [Volume fraction]33.3 %Low41 - 53 %[facility] Hemoglobin (Bld) [Mass/Vol]10.0 g/dLLow13.5 - 17.5 g/dLOhioHealthInterpretation and review of laboratory resultsAbnormalOhioHealthMCH (RBC) [Entitic mass]25.3 pgLow26 - 34 pgOhioHealthMCHC (RBC) [Mass/Vol]30.0 g/dLLow31 - 37 g/dLOhioHealth MCV (RBC) [Entitic vol]84.1 fL80 - 100 fLOhioHealthNucleated RBC (Bld) [#/Vol] 0.00 10*3/uLOhioHealthNucleated RBC/100 WBC (Bld) [Ratio]0.0 %[facility] Medical CenterPlatelet mean volume (Bld) [Entitic vol]10.4 fL9.4 - 12.4 fLOhioHealthPlatelets (Bld) [#/Vol]583 10*3/uLHighOhioHealthRBC (Bld) [#/Vol]3.96 10*6/uLLowOhioHealthWBC (Bld) [#/Vol]10.09 10*3/uLOhioHealthMagnesium Levelon 26-50-0173Vbyzyxbgyvauph and review of laboratory resultsNormalOhioHealthMagnesium [Mass/Vol]1.9 mg/dL1.6 - 2.4 mg/dLOhioHealthPOC Glucoseon 78-42-4576Ecvlvlg [Mass/Vol]160 mg/rITnlg17 - 99 mg/dLOhioHealthInterpretation and review of laboratory resultsAbnormal OhioHealthGlucose [Mass/Vol]151 mg/xDXhfg48 - 99 mg/dLOhioHealthInterpretation and review of laboratory resultsAbnormalOhioHealthGlucose [Mass/Vol]142 mg/dL High65 - 99 mg/dLOhioHealthInterpretation and review of laboratory results AbnormalOhioHealthGlucose [Mass/Vol]138 mg/bLLtqf64 - 99 mg/dLOhioHealth Interpretation and review of laboratory resultsAbnormalOhioHealthBasic Metabolic Panelon 91-49-5040Iteij gap [Moles/Vol]8 mmol/LLow10 - 20 mmol/LOhioHealth Calcium [Mass/Vol]7.8 mg/dLLow8.4 - 10.2 mg/dLOhioHealthChloride [Moles/Vol]105 mmol/L98 - 108 mmol/LOhioHealthCreatinine [Mass/Vol]0.85 mg/dL0.50 - 1.30 OhioHealthGFR/1.73 sq M predicted among non-blacks MDRD (S/P/Bld) [Vol rate/Area]The eGFR should be used for monitoring renal function only and not for medication dosing.OhioHealthGFR/1.73 sq M.predicted CKD-EPI (S/P/Bld) [Vol rate/Area]99>=60 mL/min/1.73 q8StouWbmhhyLaqzjfq [Mass/Vol]176 mg/uGRcju23 - 99 mg/dLOhioHealthHCO3 [Moles/Vol]26 mmol/L21 - 32 mmol/LOhioHealthInterpretation and review of laboratory resultsAbnormalOhioHealthPotassium [Moles/Vol]4.0 mmol/L3.5 - 5.1 mmol/LOhioHealthSodium [Moles/Vol]135 mmol/L135 - 145 mmol/L OhioHealthUrea nitrogen [Mass/Vol]13 mg/dL8 - 25 mg/dLOhioHealthUrea nitrogen/Creatinine [Mass ratio]15.3 mg/mgOhioHealthCBCon 22-09-8602Dltjojautsx distribution width (RBC) [Entitic vol]16.0 %High11.6 - 14.8 %[facility] Hematocrit (Bld) [Volume fraction]32.7 %Low41 - 53 %[facility] Medical CenterHemoglobin (Bld) [Mass/Vol]10.1 g/dLLow13.5 - 17.5 g/dLOhioHealthInterpretation and review of laboratory resultsAbnormalOhioHealthMCH (RBC) [Entitic mass]25.6 pgLow26 - 34 pg [facility] Medical CenterMCHC (RBC) [Mass/Vol]30.9 g/dLLow31 - 37 g/dLOhioHealthMCV (RBC) [Entitic vol]82.8 fL80 - 100 fLOhioHealthNucleated RBC (Bld) [#/Vol]0.00 10*3/uL OhioHealthNucleated RBC/100 WBC (Bld) [Ratio]0.0 %[facility] HospitalPlatelet mean volume (Bld) [Entitic vol]10.4 fL9.4 - 12.4 fLOhioHealthPlatelets (Bld) [#/Vol]545 10*3/uLHighOhioHealthRBC (Bld) [#/Vol]3.95 10*6/uLLowOhioHealthWBC (Bld) [#/Vol] 10.51 10*3/uLOhioHealthMagnesium Levelon 23-43-9977Bhowglsadbnsin and review of laboratory resultsNormalOhioHealthMagnesium [Mass/Vol]2.0 mg/dL1.6 - 2.4 mg/dL [facility] Gastric Emptyingon 84-47-8707Tjdsyuy gastric emptying. Workstation ID: [id number], Rad In eleni [facility] - 11/13/2020 1:36 PM EST EXAMINATION: CO GASTRIC EMPTYING HISTORY: Abdominal discomfort, nausea, vomiting [...] 0-60%). 4 HOURS: 17% (normal range = 0-10%).[facility] Glucoseon 00-47-5911Xddoexs [Mass/Vol]189 mg/eIYleb28 - 99 mg/dLOhioHealthInterpretation and review of laboratory resultsAbnormalOhioHealth Glucose [Mass/Vol]186 mg/yWHwqt35 - 99 mg/dLOhioHealthInterpretation and review of laboratory resultsAbnormalOhioHealthGlucose [Mass/Vol]221 mg/zUVwue71 - 99 mg/dLOhioHealthInterpretation and review of laboratory resultsAbnormalOhioHealth Glucose [Mass/Vol]162 mg/zYPiub47 - 99 mg/dLOhioHealthInterpretation and review of laboratory resultsAbnormalOhioHealthTISSUE EXAMon 92-67-8739Iucc Report Surgical Pathology Report Case: [id number] Authorizing Provider: Leanne Cherry DPM Collected: 11/11/2020 04:44 PM Ordering Location: [facility] Peri Received: 11/12/2020 09:31 AM Pathologist: Joni Perez DO Specimen: Foot, Left OhioHealthPathology report final diagnosis Narrative c8isxITsGPWglQU7AhXoYHTbh9ghr2QvrHRqgRGpCVpjfSSzmyTvld37gNV5fO02KV4iEHDvUtH2BEHj jeY0Jts2HYJiFDIemCPv S139o9bar7qbjeIcrHN4gYetJLVtVYIfFLcoYGWeArQiQRRAVaGnBy1uMACwelFkfMJjaWjjIKUarQUX u365JREbtRQqw5daxuuu pIRzGYOeigMrmTe7JaMfwKodXpAqKNTjEGZdsZPmQI0nfNMmrYoynZm4rPFnDNJmjcafPQBfWEYmgm7= [facility] Centerology report gross observation Narrative l2wgnLNdQKFeeBO0QlVuTRBoi5uvl7WsnMGyhSSnWXzwcKUuoqHwpu49jKO4aF47AI0eGGPbReT4VFBa kdG1Fca0UGJjMUMshAZc P617a3ncc9mipeQdlPI1rMufGLMrHTOqPEqbXSKwIwHcHyBsQQr6ROEzcK3gOa4ltLKwtY1iAGKju9lv spL1FPPvMlIqWu1wcFnm RSKeoDZDh61jQlvxKQRdk9BgA3W6OSUxPArgy7dnQBRqJHudo5KbJMoWJQBPFS9FZI2kyGO9FQoGOQPQ R0rTvDZ8SFJwmWP5ZI40 RCJtOETrwTNnWNnqW589hWLvSGcjHnauaVE5VDuhWzprbG8cuZHYATXGCktJSzcepiSjBN4LHLVFQK9I eCX2UHPjxDF5FX98KWGt ZKCqvTZwYUngB536DRNoCOvwNTLaQbUgWCPjZVvuYQ54VHLoDZ6tQCCvxsXiePSjn8SegY0tYYLbKTB6 UTVzUiO8SBWrAvQdaPen tn53YMO8h1yhgNZgZQbiMlqypBLseiO9GTbWWMQMTHiZRlTkUG0vMHvUU3CYUPdYZrtaBLA5H7jfwGD1 i0jrsTFsc7k1WGzzLAS1 gN88EPOwYFplb2htBLBlOFpfh5ShUDmVCIDNXB8GWT6lxPU1SAmPCPILZNkjJGC5N0nfnJJ0f1ffpYQi e4b4ZWhpBLV5vCwhfGJr roeokrHsRKOjV4XsrAx3iFKiCYOxerQwWFQjzOOxYujcOPOyl36hEQLGj8XusSi0SOD1Ac8drOToNOBh edSyKBVmz4JowJKpTWYv HubzGLDimSDtOTzvGKZxC5NpsIAdEXjho7WqLXZ4MH3hicK5xH5uAYHvjgMmnk1fDSSkwHljKRHgk3Ur YYciJAzmn2PdlJDtYX2c HeI2AJxoRRNcpgMzCFC4HA61SIDYBW1zCffzbPWrKO5NNNQ5MEXhLQjzQMZthQYeDEQoU99RQnLILINT C34QPRHVIWOOD0FYD8wO UYR9MSUllNP7WO2uVYO2M2cyKJYgX98EItNZELREF48DOHJUSTUYT3JKMSMBFXmXA1HUDK3GYIHBOADE TO2JVNsYPkGZCMuTN9LS PA6WRCBQOTCLZC8QKeNjIMnWT5WZD5aWURLcEDJDFDTLUJKxAeOTFN9pDPe8ISEgwH0cRHPvSOI3ZcJe HAB1FyniIH0aGMvUHESj pxOjA5fwDIfgxBK2QeIuATR0NttoYB3fEThIP6RTT1bGMWYnWWDDJRSTOFTsYA1GFMoQMS6LHLEhDWAZ RCVRSFDzRdUDMJ0dZFgU BH1DQQUdHEJVTDANPADdCD6WXBFBOJ6MLDTEBRGES69PSBOAGHFRZ8OXW6rUPJXACFWOIfYYEfWIFS5U GWCINANQDG4ARbT1FklvQlejbrEqrtcppxx report microscopic observation Narrative Other stain h2icpVRqMOVwmDOmKcHiPJXfNNFpb7chNRRrqMWuAnKpCxIbMcBnFuakqOYjEUWpOoNiz5tlz999pCDm o4vnUUEkUpE5zXBjPICi sNUxA851SIQeTHejm2ysg7YvFCQfmYRlp2B4OVMBesabhDi5iIabO94mm9V2BzsgZ3kkSCCrVHEbC9Sn GE1iYZRxUzs5KRD1ZGI0 WWJgHZLrG4AaKM3lIHUumRSpCFd2v7tweTdsAHRaOLE9q3adTNmbnuKwXT2mhh1xgQe1v0mjosZgZXGb FLKzzPVJIWIvW3NliOyg Vw7smFq5bMdqRlggLUI3Lmh1UE8cfo71lct8kLygMMKtrvnvVlH2DKhkTBRarbevMLc5EZkcJFNpvTT2 NILxjNWmT0JoGQHzCB7i bhs1TUX0FLckPKBpVlZ1IEBbyLJuFMOrvHquLGaul637OCE9FiWcYC8dB9Het8V9iI5enTGaENFuvVYz YaNbWQIvlm1itKFjJLwq c5BpQGR7lsX5jQUzvGZfLODvRD83Vlirv4DhKgsnPRE6UPOldsQwq5Voq6owMsXeqgUeY2reE8InBPNj YUWrTPTnQkNnatUaa0Iq p4BzpOArwCt3q9yxKRDtEOVgvFqxf0hnBHR1JWOjR5E0nTUxa3vxTFruCYPkcXW7jeO2ZOPmiNFgX1He zN2eEQZxIO4oqbb3h8ut VKF1EXmaCPMbVeX8ysH6ZSLuwOAeDLVslOsfJCknr288EKF5VsBdPDGsu8MdC0PykNcwZ74sdAhzW75m SWHmpAukkH3bfVhffX9h JjYdFgHwVVxtuTjduMTnizxyUEsrbfWqCByakdksBTVbTYlqW0bySlAmCDGjtCuuUJaiu0SkUNBpSRBa DiScOJhsru9zV56kqFEsHFffmQfwHOWqa24xoRPtkNUeUk9zuEBbUyrzFBR7PdemFbhmunPL DOPPLER SEGMENTAL ARTERIAL LEGS BILATERALon [id number] DOPPLER SEGMENTAL ARTERIAL LEGS BILATERALPatient Info Name: MORE KINGSLEY Age: 55 years : 1965 Gender: Male Exam Date: 11/13/2020 8:13 AM Patient Status: Inpatient [employer] Supervisor: Rafat Tony RVT Indications I73.9 - Peripheral vascular disease, unspecified Procedure Description 23657 Complete bilateral noninvasive physiologic studies of upper [...] by ABILIO Gutiérrez DO on 11/13/2020 03:26 [facility] - 11/13/2020 3:27 PM EST Patient Info Name: MORE KINGSLEY Age: 55 years : 1965 Gender: Male Exam Date: 11/13/2020 8:13 AM Patient Status: Inpatient [employer] Supervisor: Rafat Tony RVT Indications I73.9 - Peripheral vascular disease, unspecified Procedure Description 21575 Complete bilateral noninvasive physiologic studies of upper [...] Date: 11/13/2020 8:13 AM Patient Status: Inpatient [employer] Supervisor: Rafat Tony RVT Indications I73.9 - Peripheral vascular disease, unspecified Procedure Description 27834 Complete bilateral noninvasive physiologic studies of upper [...] ABILIO Gutiérrez DO on 11/13/2020 03:26 PM [facility] Metabolic Panelon [id number] gap [Moles/Vol]10 mmol/L10 - 20 mmol/LOhioHealthCalcium [Mass/Vol]8.0 mg/dLLow8.4 - 10.2 mg/dLOhioHealth Chloride [Moles/Vol]104 mmol/L98 - 108 mmol/LOhioHealthCreatinine [Mass/Vol]0.84 mg/dL0.50 - 1.30OhioHealthGFR/1.73 sq M predicted among non-blacks MDRD (S/P/Bld) [Vol rate/Area]The eGFR should be used for monitoring renal function only and not for medication dosing.[facility]HealthGFR/1.73 sq M.predicted CKD-EPI (S/P/Bld) [Vol rate/Area]99>=60 mL/min/1.73 y0RzuvVgfgbwPwysats [Mass/Vol]86 mg/dL65 - 99 mg/dLOhioHealthHCO3 [Moles/Vol]25 mmol/L21 - 32 mmol/LOhioHealth Interpretation and review of laboratory resultsAbnormalOhioHealthPotassium [Moles/Vol]4.1 mmol/L3.5 - 5.1 mmol/LOhioHealthSodium [Moles/Vol]135 mmol/L135 - 145 mmol/LOhioHealthUrea nitrogen [Mass/Vol]10 mg/dL8 - 25 mg/dLOhioHealthUrea nitrogen/Creatinine [Mass ratio]11.9 mg/mgOhioHealthCBCon 64-86-4499Pzdihgyrjfy distribution width (RBC) [Entitic vol]16.4 %High11.6 - [...] 10*6/uLLowOhioHealthWBC (Bld) [#/Vol] 13.36 10*3/uLHighOhioHealthCOVID-19/INFLUENZA A,B MOLECULARon 83-70-3983RRHCD- 19/INFLUENZA A,B ZVEZSXMPWRHJV-PXS-9 (JESSIKA): Not Detected INFLUENZA A (JESSIKA): Not Detected INFLUENZA B (JESSIKA): Not DetectedNormalMemorial [facility] HospitalComment on above:Order Comment: This test was [...] at the following links: For Healthcare Providers: https://www.fda.gov/media/159926/download For Patients: https://www.fda.gov/media/102888/downloadPerformed By: #### [id number] #### [facility] [address] [address] Warren Barnett M.D. [id number]-55/Influenza A,B Molecularon 14-64-6905Weyzqmiim ANot Detected Not DetectedOhioHealthInfluenza BNot DetectedNot DetectedOhioHealth Interpretation and review of laboratory pojtddfAhjuiwErrbDxexbrPBWQ-ApX-5Wjz DetectedNot DetectedOhioHealthThis test was performed under the [...] found at the following links: For HealthcareProviders: https://www.fda.gov/media/886851/download For Patients: https://www.fda.gov/media/706037/downloadOhioHealthMagnesium Levelon 11-12-2020 Interpretation and review of laboratory resultsNormalOhioHealthMagnesium [Mass/Vol]1.8 mg/dL1.6 - 2.4 mg/dLOhioHealthNM GASTRIC EMPTYINGon 06-18-0127IX GASTRIC EMPTYINGEXAMINATION: NM GASTRIC EMPTYING HISTORY: Abdominal [...] NOE on WedNov 13, 2020 1:34:26 PM [facility]Order Comment: Injury/Trauma or Illness?:Illness/Other How long have you had these symptoms (acute/chronic)?:Chronic a few years now Reason for exam?:Recurrent nausea and vomiting and abdominal discomfort uncontrolled diabetes Type of Exam?:Ongoing Additional signs and symptoms?:nausea and vomiting almost daily for a few years now,POC Glucoseon 02-19-7569Dpyxovg [Mass/Vol]159 mg/mIEpjr14 - 99 mg/dL OhioHealthInterpretation and review of laboratory resultsAbnormalOhioHealth Glucose [Mass/Vol]161 mg/xBBwdt96 - 99 mg/dLOhioHealthInterpretation and review of laboratory resultsAbnormalOhioHealthGlucose [Mass/Vol]153 mg/xWLzvn40 - 99 mg/dLOhioHealthInterpretation and review of laboratory resultsAbnormalOhioHealth Glucose [Mass/Vol]71 mg/dL65 - 99 mg/dLOhioHealthInterpretation and review of laboratory resultsNormalOhioHealthBasic Metabolic Panelon 12-03-7445Zctjc gap [Moles/Vol]9 mmol/LLow10 - 20 mmol/LOhioHealthCalcium [Mass/Vol]8.1 mg/dLLow8.4 - 10.2 mg/dLOhioHealthChloride [Moles/Vol]106 mmol/L98 - 108 mmol/LOhioHealth Creatinine [Mass/Vol]1.00 mg/dL0.50 - 1.30OhioHealthGFR/1.73 sq M predicted among non-blacks MDRD (S/P/Bld) [Vol rate/Area]The eGFR should be used for monitoring renal function only and not for medication dosing.[facility]HealthGFR/1.73 sq M.predicted CKD-EPI (S/P/Bld) [Vol rate/Area]85>=60 mL/min/1.73 a9SgisMzvnha Glucose [Mass/Vol]108 mg/sUEefx00 - 99 mg/dLOhioHealthHCO3 [Moles/Vol]26 mmol/L 21 - 32 mmol/LOhioHealthInterpretation and review of laboratory resultsAbnormal OhioHealthPotassium [Moles/Vol]4.0 mmol/L3.5 - 5.1 mmol/LOhioHealthSodium [Moles/Vol]137 mmol/L135 - 145 mmol/LOhioHealthUrea nitrogen [Mass/Vol]8 mg/dL8 - 25 mg/dLOhioHealthUrea nitrogen/Creatinine [Mass ratio]8.0 mg/mgLowOhioHealth CBCon 92-63-4877Blutpanzrwk distribution width (RBC) [Entitic vol]16.2 %High11.6 - 14.8 %[facility] HospitalHematocrit (Bld) [Volume fraction]36.2 %Low41 - 53 %[facility] Hemoglobin (Bld) [Mass/Vol]11.2 g/dLLow13.5 - 17.5 g/dLOhioHealthInterpretation and review of laboratory resultsAbnormalOhioHealthMCH (RBC) [Entitic mass]25.7 pgLow26 - 34 pgOhioHealthMCHC (RBC) [Mass/Vol]30.9 g/dLLow31 - 37 g/dLOhioHealth MCV (RBC) [Entitic vol]83.0 fL80 - 100 fLOhioHealthNucleated RBC (Bld) [#/Vol] 0.00 10*3/uLOhioHealthNucleated RBC/100 WBC (Bld) [Ratio]0.0 %[facility] HospitalPlatelet mean volume (Bld) [Entitic vol]10.6 fL9.4 - 12.4 fLOhioHealthPlatelets (Bld) [#/Vol]511 10*3/uLHighOhioHealthRBC (Bld) [#/Vol]4.36 10*6/uLLowOhioHealthWBC (Bld) [#/Vol]11.96 10*3/uLHighOhioHealthMagnesium Levelon 11-11-2020 Interpretation and review of laboratory resultsNormalOhioHealthMagnesium [Mass/Vol]1.7 mg/dL1.6 - 2.4 mg/dLOhioHealthInterpretation and review of laboratory resultsNormalOhioHealthMagnesium [Mass/Vol]1.8 mg/dL1.6 - 2.4 mg/dL [facility] Glucoseon 38-15-8612Cqpjycq [Mass/Vol]104 mg/dCQmvq55 - 99 mg/dL OhioHealthInterpretation and review of laboratory resultsAbnormalOhioHealth Glucose [Mass/Vol]86 mg/dL65 - 99 mg/dLOhioHealthInterpretation and review of laboratory resultsNormalOhioHealthGlucose [Mass/Vol]106 mg/tCFtig09 - 99 mg/dL OhioHealthInterpretation and review of laboratory resultsAbnormalOhioHealth Glucose [Mass/Vol]115 mg/uCAyms72 - 99 mg/dLOhioHealthInterpretation and review of laboratory resultsAbrmalOhioHealthBasi Metabolic Panelon 09-77-5829Lvxys gap [Moles/Vol]9 mmol/LLow10 - 20 mmol/LOhioHealthCalcium [Mass/Vol]7.9 mg/dLLow 8.4 - 10.2 mg/dLOhioHealthChloride [Moles/Vol]104 mmol/L98 - 108 mmol/L [facility] HospitalCreatinine [Mass/Vol]0.94 mg/dL0.50 - 1.30OhioHealthGFR/1.73 sq M predicted among non-blacks MDRD (S/P/Bld) [Vol rate/Area]The eGFR should be used for monitoring renal function only and not for medication dosing.[facility] GFR/1.73 sq M.predicted CKD-EPI (S/P/Bld) [Vol rate/Area]92>=60 mL/min/1.73 m2 [facility] HospitalGlucose [Mass/Vol]151 mg/zPUonp49 - 99 mg/dLOhioHealthHCO3 [Moles/Vol] 26 mmol/L21 - 32 mmol/LOhioHealthInterpretation and review of laboratory results AbnormalOhioHealthPotassium [Moles/Vol]3.4 mmol/LLow3.5 - 5.1 mmol/LOhioHealth Sodium [Moles/Vol]136 mmol/L135 - 145 mmol/LOhioHealthUrea nitrogen [Mass/Vol]8 mg/dL8 - 25 mg/dLOhioHealthUrea nitrogen/Creatinine [Mass ratio]8.5 mg/mgLow OhioHealthCBCon 44-56-8574Dqcydpbnzaw distribution width (RBC) [Entitic vol]16.4 %High11.6 - [...] (Bld)No Growth After 5 DaysOhioHealthMagnesium Level on 06-47-3966Wwkkvpphxhsyhw and review of laboratory resultsNormalOhioHealth Magnesium [Mass/Vol]1.9 mg/dL1.6 - 2.4 mg/dLOhioHealthPOC Glucoseon 2020 Glucose [Mass/Vol]136 mg/dUFloj45 - 99 mg/dLOhioHealthInterpretation and review of laboratory resultsAbnormalOhioHealthGlucose [Mass/Vol]137 mg/cYXkcy92 - 99 mg/dLOhioHealthInterpretation and review of laboratory resultsAbnormalOhioHealth Glucose [Mass/Vol]151 mg/lMCeqz80 - 99 mg/dLOhioHealthInterpretation and review of laboratory resultsAbnormalOhioHealthGlucose [Mass/Vol]167 mg/wMSlru13 - 99 mg/dLOhioHealthInterpretation and review of laboratory resultsAbnormalOhioHealth Glucose [Mass/Vol]154 mg/aQRvkq59 - 99 mg/dLOhioHealthInterpretation and review of laboratory resultsAbnormalOhioHealthGlucose [Mass/Vol]58 mg/dLLow65 - 99 mg/dLOhioHealthInterpretation and review of laboratory resultsAbnormalOhioHealth Basic Metabolic Panelon 92-95-1818Eoqgv gap [Moles/Vol]11 mmol/L10 - 20 mmol/L OhioHealthCalcium [Mass/Vol]7.6 mg/dLLow8.4 - 10.2 mg/dLOhioHealthChloride [Moles/Vol]103 mmol/L98 - 108 mmol/LOhioHealthCreatinine [Mass/Vol]0.84 mg/dL 0.50 - 1.30OhioHealthGFR/1.73 sq M predicted among non-blacks MDRD (S/P/Bld) [Vol rate/Area]The eGFR should be used for monitoring renal function only and not for medication dosing.OhioHealthGFR/1.73 sq M.predicted CKD-EPI (S/P/Bld) [Vol rate/Area]100>=60 mL/min/1.73 j7XuveIxvcacZdsleke [Mass/Vol]85 mg/dL65 - 99 mg/dLOhioHealthHCO3 [Moles/Vol]24 mmol/L21 - 32 mmol/LOhioHealthInterpretation and review of laboratory resultsAbnormalOhioHealthPotassium [Moles/Vol]3.1 mmol/LLow3.5 - 5.1 mmol/LOhioHealthSodium [Moles/Vol]135 mmol/L135 - 145 mmol/L OhioHealthUrea nitrogen [Mass/Vol]10 mg/dL8 - 25 mg/dLOhioHealthUrea nitrogen/Creatinine [Mass ratio]11.9 mg/mgOhioHealthCBCon 32-85-7212Ctylwcyhchn distribution width (RBC) [Entitic vol]16.2 %High11.6 - 14.8 %[facility] Hematocrit (Bld) [Volume fraction]35.8 %Low41 - [...] [#/Vol]4.32 10*6/uLLowOhioHealthWBC (Bld) [#/Vol] 11.42 10*3/uLHighOhioHealthMagnesium Levelon 29-27-9594Kmureabeyfgpth and review of laboratory resultsNormalOhioHealthMagnesium [Mass/Vol]1.7 mg/dL1.6 - 2.4 mg/dLOhioHealthPOC Glucoseon 07-22-1152Mozmcme [Mass/Vol]112 mg/sYBobk84 - 99 mg/dLOhioHealthInterpretation and review of laboratory [...] and review of laboratory resultsAbnormalOhioHealthUrine Aerobic Cultureon 24-80-1338Fnqnfsql identified Aer cx Nom (Unsp spec)No Growth (<1,000 CFU/mL)OhioHealthWOUND AEROBIC CULTUREon 93-59-0869Zeohjirp identified Aer cx Nom (Wound)Light Growth Staphylococcus aureusAbnormalOhioHealthComment on above:See susceptibility from same source/different date: 11/06/2020 Interpretation and review of laboratory resultsAbnormalOhioHealthMicroscopic observation Gram stain Nom (Wound)PositiveOhioHealthMicroscopic observation Gram stain Nom (Wound)Many WBCOhioHealthMicroscopic observation Gram stain Nom (Wound)No Epithelial Cells SeenOhioHealthBasic Metabolic Panelon 74-13-2195Ukhtj gap [Moles/Vol]9 mmol/LLow10 - 20 mmol/LOhioHealthCalcium [Mass/Vol]7.8 mg/dL Low8.4 - 10.2 mg/dLOhioHealthChloride [Moles/Vol]104 mmol/L98 - 108 mmol/L OhioHealthCreatinine [Mass/Vol]0.98 mg/dL0.50 - 1.30OhioHealthGFR/1.73 sq M predicted among non-blacks MDRD (S/P/Bld) [Vol rate/Area]The eGFR should be used for monitoring renal function only and not for medication dosing.[facility] GFR/1.73 sq M.predicted CKD-EPI (S/P/Bld) [Vol rate/Area]88>=60 mL/min/1.73 m2 OhioHealthGlucose [Mass/Vol]136 mg/jHNimo05 - 99 mg/dLOhioHealthHCO3 [Moles/Vol] 25 mmol/L21 - 32 mmol/LOhioHealthInterpretation and review of laboratory results AbnormalOhioHealthPotassium [Moles/Vol]3.4 mmol/LLow3.5 - 5.1 mmol/LOhioHealth Sodium [Moles/Vol]135 mmol/L135 - 145 mmol/LOhioHealthUrea nitrogen [Mass/Vol]14 mg/dL8 - 25 mg/dLOhioHealthUrea nitrogen/Creatinine [Mass ratio]14.3 mg/mg OhioHealthOtheron 26-87-0445Zbvrazya identified Aer cx Nom (Wound)Moderate Growth Staphylococcus aureusAbnormalOhioHealthComment on above:This Staphylococcus aureus is Methicillin SUSCEPTIBLE by PBP2a testing. Beta-lactams like Cefazolinand Nafcillin are superior to Vancomycin for treating mSsa. Interpretation and review of laboratory resultsAbnormalOhioHealthMicroscopic observation Gram stain Nom (Wound)No Epithelial Cells SeenOhioHealthPOC Glucose on 44-55-4268Wlgfomd [Mass/Vol]105 mg/xYIxst28 - 99 mg/dLOhioHealth Interpretation and review of laboratory resultsAbnormalOhioHealthGlucose [Mass/Vol]98 mg/dL65 - 99 mg/dLOhioHealthInterpretation and review of laboratory resultsNormalOhioHealthGlucose [Mass/Vol]109 mg/oZNnyr75 - 99 mg/dLOhioHealth Interpretation and review of laboratory resultsAbnormalOhioHealthGlucose [Mass/Vol]107 mg/tADzrh67 - 99 mg/dLOhioHealthInterpretation and review of laboratory resultsAbnormalOhioHealthWOUND AEROBIC CULTUREon 63-13-9905Tymixvxg identified Aer cx Nom (Wound)Moderate Growth Streptococcus agalactiae (Group B) AbnormalOhioHealthMicroscopic observation Gram stain Nom (Wound)Positive OhioHealthMicroscopic observation Gram stain Nom (Wound)No Organisms Seen OhioHealthMicroscopic observation Gram stain Nom (Wound)Few WBCOhioHealth Microscopic observation Gram stain Nom (Wound)Rare WBCOhioHealthSee susceptibility from same source/same date.[facility] HospitalCBC WITH AUTO DIFFERENTIALon 23-39-4650Tjqkmuiyd (Bld) [#/Vol]0.09 10*3/uLOhioHealthBasophils/100 WBC (Bld) 0.7 %OhioHealthEosinophils (Bld) [#/Vol]0.22 10*3/uLOhioHealthEosinophils/100 WBC (Bld)1.8 %[facility] Medical CenterErythrocyte distribution width (RBC) [Entitic vol]15.9 % High11.6 [...] (Bld) [#/Vol]4.25 10*6/uLLowOhioHealthWBC (Bld) [#/Vol]12.03 10*3/uLHighOhioHealthPOC Glucoseon 45-81-4674Jjunprz [Mass/Vol]178 mg/zFIimc76 - 99 mg/dLOhioHealthInterpretation and review of laboratory resultsAbnormalOhioHealthGlucose [Mass/Vol]205 mg/dL High65 - 99 mg/dLOhioHealthInterpretation and review of laboratory results AbnormalOhioHealthGlucose [Mass/Vol]221 mg/kMFgii00 - 99 mg/dLOhioHealth Interpretation and review of laboratory resultsAbnormalOhioHealthGlucose [Mass/Vol]206 mg/dRYwkz47 - 99 mg/dLOhioHealthInterpretation and review of laboratory resultsAbnormalOhioHealthGlucose [Mass/Vol]209 mg/yJGupf87 - 99 mg/dL OhioHealthInterpretation and review of laboratory resultsAbnormalOhioHealthC3 COMPLEMENTon 55-36-3539Wcqtskhhak C3 [Mass/Vol]151.9 mg/dL73 - 183 mg/dL OhioHealthC4 COMPLEMENTon 32-41-4222Qjojzzhspl C4 [Mass/Vol]21.6 mg/dL16 - 47 mg/dLRiioHealthCBC WITH AUTO DIFFERENTIALon 48-53-9096Coqzzipwn (Bld) [#/Vol] 0.07 10*3/uLOhioHealthBasophils/100 WBC (Bld)0.5 %OhioHealthEosinophils (Bld) [#/Vol]0.05 10*3/uLOhioHealthEosinophils/100 WBC (Bld)0.3 %[facility] HospitalErythrocyte distribution width (RBC) [Entitic vol]15.4 %High11.6 - 14.8 %[facility] Hematocrit (Bld) [Volume fraction]34.1 %Low41 - 53 %[facility] HospitalHemoglobin (Bld) [Mass/Vol]10.8 g/dLLow13.5 - 17.5 g/dLMaineHealthImmature granulocytes (Bld) [#/Vol]0.14 10*3/uLOhioHealthImmature granulocytes/100 WBC (Bld)0.90 %[facility] Comment on above:The IG parameter is [...] 10*6/uLLowOhioHealthWBC (Bld) [#/Vol] 15.27 10*3/uLHighOhioHealthCT COMPARISON IMPORTon 88-53-0121Otob order has been auto-finalized and does not contain a result.[facility] HospitalHemoglobin A1con 74-16-3371Yqbqxsr glucose Estimated from glycated hemoglobin mass conc (Bld)189 mg/wBVkgp56 - 114 mg/eRBgxuGtggtiZtI2r (Bld) [Mass fraction]8.2 %High4 - 5.6 % OhioHealthInterpretation and review of laboratory resultsAbnormalOhioHealth Normal: 4.0% - 5.6% Increased risk for diabetes: 5.7% - 6.4% Diabetes: >= 6.5% Pediatrics: No established reference range Estimated average glucose: 68-114 mg/dLOhioHealthLactic Acid, Plasmaon 34-75-2463Hmpmcxjzomuxne and review of laboratory resultsAbnormalOhioHealthLactate [Moles/Vol]2.3 mmol/LHigh0.6 - 2 mmol/LOhioHealthMR Foot Left With And Without Contraston 33-71-6594Xhsbhzbcf, Rad In [facility] Lazoq - 11/06/2020 9:29 [...] forefoot muscles presumably related to chronic diabetic neuropathy.[facility]1. Abnormal appearance of the midfoot particularly at [...] 388RRAOhioHealthMR Foot Right With And Without Contraston 23-58-9189Szcwwzgam, Rad In [facility] Speechq - 11/06/2020 9:00 PM EST EXAMINATION: [...] dome osteochondral lesion is seen. There is bzeo-hn-xqcxndki mid and hindfoot osteoarthritis with scattered marginal [...] 3. No MR signs of osteomyelitis. 4. Vlbx-ix-htaaeeym mid/hindfoot osteoarthritis. 5. Remote sprains of the ATFL and deep fibers of the deltoid ligament, as above. [employer] Workstation ID: [id number]: MR FOOT RIGHT WITH [...] dome osteochondral lesion is seen. There is hplt-zg-icfjqfzu mid and hindfoot osteoarthritis with scattered marginal [...] 3. No MR signs of osteomyelitis. 4. Rfmz-wx-mgzvcupn mid/hindfoot osteoarthritis. 5. Remote sprains of the ATFL and deep fibers of the deltoid ligament, as above. [employer] Workstation ID: [id number] 73-35-1088Pdcpzpwue [Mass/Vol]1.9 mg/dL1.6 - 2.4 mg/dLOhioHealthOtheron 49-41-6325Kbgmlzdnqodhbs and review of laboratory resultsNormalOhioHealthEXAMINATION: XR FOOT [...] LEFT: BONES: No acute fracture or dislocation. Arbf-aj-ksdsenbw degenerative changes throughout the foot. Severe degenerativechanges the 1st metatarsophalangeal joint with bony remodeling, wlkq-sz-ozbl articulation and marginal osteophyte formation. Enthesopathic spurring of the calcaneus. SOFT TISSUES: Moderate soft tissue swelling EFFUSION: None visible. OTHER: Negative.[facility] plain film evidence of osteomyelitis in the right or left foot Workstation ID: [id number], Rad In [facility] - 11/06/2020 10:30 AM EST EXAMINATION: XR [...] LEFT: BONES: No acute fracture or dislocation. Glni-ov-jfavdyyp degenerative changes throughout the foot.Severe degenerative changes the 1st metatarsophalangeal joint with bony remodeling, xifa-jw-gcgd articulation and marginal osteophyte formation. Enthesopathic spurring of the calcaneus. SOFT TISSUES: Moderate soft tissue swelling EFFUSION: None visible. OTHER: Negative. IMPRESSION: No definite plain film evidence of osteomyelitis in the right or left foot Workstation ID: [id number] and review of laboratory results NormalOhioHealthPOC Glucoseon 33-34-0944Itezqku [Mass/Vol]327 mg/xDVuqv40 - 99 mg/dLOhioHealthInterpretation and review of laboratory resultsAbnormalOhioHealth Glucose [Mass/Vol]301 mg/iWYtmo27 - 99 mg/dLOhioHealthInterpretation and review of laboratory resultsAbnormalOhioHealthGlucose [Mass/Vol]272 mg/gPJnoy86 - 99 mg/dLOhioHealthInterpretation and review of laboratory resultsAbnormalOhioHealth Glucose [Mass/Vol]346 mg/jGOmnw86 - 99 mg/dLOhioHealthInterpretation and review of laboratory resultsAbnormalOhioHealthGlucose [Mass/Vol]303 mg/oDDatw42 - 99 mg/dLOhioHealthInterpretation and review of laboratory resultsAbnormalOhioHealth Procalcitoninon 82-16-8491Asidrrsmqsgpqq and review of laboratory results AbnormalOhioHealthProcalcitonin [Mass/Vol]3.85 ng/mLHigh<0.50OhioHealthResults >2.00 ng/ml represent a high risk of severe sepsis and/or septic shock. OhioHealthProtein / Creatinine Ratio, Urineon 12-37-0608Wmutxqxcso (U) [Mass/Vol]36.6 mg/dLOhioHealthInterpretation and review of laboratory results AbnormalOhioHealthProtein (U) [Mass/Vol]61.1 mg/dLOhioHealthProtein/Creatinine (U) [Ratio]1.7HighOhioHealthReflex Lactic Acid, Plasmaon 11-06-2020 Interpretation and review of laboratory resultsAbnormalOhioHealthLactate [Moles/Vol]2.1 mmol/LHigh0.6 - 2 mmol/LOhioHealthRenal Function Panelon 33-15-2774Nneekge [Mass/Vol]1.5 g/dLLow3.2 - 5.2 g/dLOhioHealthAnion gap [Moles/Vol]13 mmol/L10 - 20 mmol/LOhioHealthCalcium [Mass/Vol]7.7 mg/dLLow8.4 - 10.2 mg/dLOhioHealthChloride [Moles/Vol]104 mmol/L98 - 108 mmol/LOhioHealth Creatinine [Mass/Vol]1.54 mg/dLHigh0.50 - 1.30OhioHealthGFR/1.73 sq M predicted among non-blacks MDRD (S/P/Bld) [Vol rate/Area]The eGFR should be used for monitoring renal function only and not for medication dosing.OhioHealthGFR/1.73 sq M.predicted CKD-EPI (S/P/Bld) [Vol rate/Area]51Low>=60 mL/min/1.73 m2 OhioHealthGlucose [Mass/Vol]281 mg/mXHsov47 - 99 mg/dLOhioHealthHCO3 [Moles/Vol] 19 mmol/LLow21 - 32 mmol/LOhioHealthInterpretation and review of laboratory resultsAbnormalOhioHealthPhosphate [Mass/Vol]2.2 mg/dLLow2.7 - 4.5 mg/dL OhioHealthPotassium [Moles/Vol]3.8 mmol/L3.5 - 5.1 mmol/LOhioHealthSodium [Moles/Vol]132 mmol/KDls828 - 145 mmol/LOhioHealthUrea nitrogen [Mass/Vol]36 mg/dLHigh8 - 25 mg/dLOhioHealthUrea nitrogen/Creatinine [Mass ratio]23.4 mg/mg HighOhioHealthTSHon 55-29-0014ZIM Qn0.80 m[IU]/LOhioHealthURINALYSISon 83-71-9639Cwekkfpa Auto Ql (U)RareAbnormalNone Seen /hpfOhioHealthBilirubin Ql (U)NegativeNegativeOhioHealthClarity [...] are present they are quantified by microscopic examination.[facility] HospitalXR COMPARISON IMPORTon 95-91-4589Zraw order has been auto-finalized and does not contain a result.[facility] HospitalXR FOOT LEFT 3+ VIEWS (STANDARD)on 34-45-9163HD FOOT LEFT 3+ VIEWS (STANDARD)EXAMINATION: XR FOOT [...] LEFT: BONES: No acute fracture or dislocation. Fcck-uw-cwwjdgko degenerative changes throughout the foot. Severe degenerative changes the 1st metatarsophalangeal joint with bony remodeling, hdjn-vt-qzrs articulation and marginal osteophyte formation. 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 Nnix-dx-tfkwnzpl degenerative changes throughout the foot. Severe degenerative changes the 1st metatarsophalangeal joint with bony remodeling, ebiw-jj-mwwm articulation and marginal osteophyte formation. Enthesopathic spurring [...] LA on WedNov 06, 2020 10:27:44 AM [facility] on above:Order Comment: Injury/Trauma or Illness?:Illness/Other How long have you had these symptoms (acute/chronic)?:Acute Reason for exam?:Secondary DM with DKA (HCC) History of cancer?: Surgeries, chemotherapy, or radiation?: Type of Exam?:Initial Additional signs and symptoms?:Secondary DM with DKA (HCC), no known injury Beta-Hydroxybutyrateon 21-53-7182Dexn hydroxybutyrate [Moles/Vol]1.4 mmol/LHigh0 - 0.3 mmol/LOhioHealthInterpretation and review of laboratory resultsAbnormal [facility] WITH AUTO DIFFERENTIALon 80-04-7734Nuugftvgr (Bld) [#/Vol]0.07 10*3/uLOhioHealthBasophils/100 WBC (Bld)0.4 %[facility]HealthEosinophils (Bld) [#/Vol] 0.01 10*3/uLOhioHealthEosinophils/100 WBC (Bld)0.1 %[facility] HospitalErythrocyte distribution width (RBC) [Entitic vol]15.2 %High11.6 - 14.8 %[facility] Hematocrit (Bld) [Volume fraction]37.7 %Low41 - 53 %[facility] Medical CenterHemoglobin (Bld) [Mass/Vol]11.9 g/dLLow13.5 - 17.5 g/dLOhioHealthImmature granulocytes (Bld) [#/Vol]0.10 10*3/uLOhioHealthImmature granulocytes/100 WBC (Bld)0.60 %[facility] Comment on above:The IG parameter is the percentage of metamyelocytes, myelocytes and promyelocytes. An immature granulocyte count (IG) of 1% or more suggests the possibility of infection, an IG count of 3% is very likely related to an infection.Interpretation and review of laboratory resultsAbnormal OhioHealthLymphocytes (Bld) [#/Vol]0.60 10*3/uLLowOhioHealthLymphocytes/100 WBC (Bld)3.8 %[facility] HospitalMCH (RBC) [Entitic mass]26.3 pg26 - 34 pgOhioHealthMCHC (RBC) [Mass/Vol]31.6 g/dL31 - 37 g/dLOhioHealthMCV (RBC) [Entitic vol]83.4 fL80 - 100 fLOhioHealthMonocytes (Bld) [#/Vol]1.71 10*3/uLHighOhioHealthMonocytes/100 WBC (Bld)10.8 %OhioHealthNeutrophils (Bld) [#/Vol]13.36 10*3/uLHighOhioHealth Neutrophils/100 WBC (Bld)84.3 %OhioHealthNucleated RBC (Bld) [#/Vol]0.00 10*3/uL OhioHealthNucleated RBC/100 WBC (Bld) [Ratio]0.0 %[facility] HospitalPlatelet mean volume (Bld) [Entitic vol]11.0 fL9.4 - 12.4 fLOhioHealthPlatelets (Bld) [#/Vol]274 10*3/uLOhioHealthRBC (Bld) [#/Vol]4.52 10*6/uLOhioHealthWBC (Bld) [#/Vol]15.85 10*3/uLHighOhioHealthCPK NO MBon 44-72-2112IG [Catalytic activity/Vol]98 U/L60 - 225 U/LOhioHealthInterpretation and review of laboratory resultsNormalOhioHealth CRP, Inflammationon 64-43-3000ENZ [Mass/Vol]468.0 mg/LHigh<=10.0OhioHealth Comprehensive Metabolic Panelon 60-60-4882Axjapgf [Mass/Vol]1.8 g/dLLow3.2 - 5.2 g/dLOhioHealthALP [Catalytic activity/Vol]95 [...] sq M.predicted CKD-EPI (S/P/Bld) [Vol rate/Area]41Low>=60 mL/min/1.73 r8KgjeQkajdyIxrxosa [Mass/Vol]309 mg/oRNqcz22 - 99 mg/dLOhioHealth HCO3 [Moles/Vol]22 mmol/L21 - 32 mmol/LOhioHealthPotassium [Moles/Vol]3.3 mmol/L Low3.5 - 5.1 mmol/LOhioHealthProtein [Mass/Vol]8.1 g/dLHigh6 - 8 g/dLOhioHealth Sodium [Moles/Vol]130 mmol/VTue731 - 145 mmol/LOhioHealthUrea nitrogen [Mass/Vol]42 mg/dLHigh8 - 25 mg/dLOhioHealthUrea nitrogen/Creatinine [Mass ratio]23.1 mg/mgHighOhioHealthLactic Acid, Plasmaon 44-64-7292Xrwmubuvvmasti and review of laboratory resultsAbnormalOhioHealthLactate [Moles/Vol]3.1 mmol/LHigh 0.6 - 2 mmol/LOhioHealthMR FOOT LEFT WITH AND WITHOUT CONTRASTon 31-52-3560YR FOOT LEFT WITH AND WITHOUT CONTRASTEXAMINATION: MR [...] OLIVERA on WedNov 06, 2020 9:27:00 PM [facility] HospitalComment on above:Order Comment: Injury/Trauma or Illness?:Illness/Other How long have you had these symptoms (acute/chronic)?:Acute Reason for exam?:Non healing wounds lateral / dorsal aspect x 7 days Type of Exam?:Initial Additional signs and symptoms?:naMR FOOT RIGHT WITH AND WITHOUT CONTRASTon 47-02-7944RL FOOT RIGHT WITH AND WITHOUT CONTRASTEXAMINATION: MR [...] dome osteochondral lesion is seen. There is jymd-ol-sokesqvv mid and hindfoot osteoarthritis with scattered marginal [...] 3. No MR signs of osteomyelitis. 4. Sjmg-wf-afynjonh mid/hindfoot osteoarthritis. 5. Remote sprains of the ATFL and deep fibers of the deltoid ligament, as above. [employer] Workstation ID: [id number] Dictated by: CHAN OLIVERA on WedNov 06, 2020 8:37:02 PM EST Transcribed by: DEBRA BOLIVAR on WedNov 06, 2020 8:49:17 PM EST Finalized by: CHAN OLIVERA on WedNov 06, 2020 8:58:02 PM [facility] HospitalComment on above:Order Comment: Injury/Trauma or Illness?:Illness/Other How long have you had these symptoms (acute/chronic)?:Acute Reason for exam?:non healing wound on top of foot History of cancer?: Surgeries, chemotherapy, or radiation?: Type of Exam?:Initial Additional signs and symptoms?:painMagnesiumon 72-55-0034Puknqfsawwdyxc and review of laboratory resultsNormalOhioHealthMagnesium [Mass/Vol]2.0 mg/dL1.6 - 2.4 mg/dLOhioHealthOtheron 47-70-7115Snmcmsghspqmku and review of laboratory resultsAbnormalOhioHealthPhosphoruson 36-78-7316Uxunkwcyd [Mass/Vol]1.6 mg/dLLow 2.7 - 4.5 mg/dLOhioHealthSedimentation Rateon 54-20-0352OQV (Bld) [Velocity]110 mm/hHighOhioHealthInterpretation and review of laboratory resultsAbnormal OhioHealthTROPONINon 36-81-8380Kcnpgdhd I.cardiac [Mass/Vol]ng/mL<=45 ng/L OhioHealthTroponin I.cardiac [Mass/Vol]No biomarker evidence of cardiac injury. OhioHealthTroponin I.cardiac [Mass/Vol]ng/mL<=45 ng/LOhioHealthTroponin I.cardiac [Mass/Vol]NormalOhioHealthXR CHEST PA/APon 94-16-3560DP CHEST PA/AP EXAMINATION: XR CHEST PA/AP 11/05/2020 [...] LEGGETT on WedNov 05, 2020 8:04:45 PM [facility] on above:Order Comment: Injury/Trauma or Illness?:Illness/Other How long have you had these symptoms (acute/chronic)?:Acute Reason for exam?:SOB History of cancer?: Surgeries, chemotherapy, or radiation?: Type of Exam?:Initial Additional signs and symptoms?:nXR Chest 1 Viewon 72-35-0389Dqhxmaege, Rad In Fuji Speechq - 11/05/2020 8:07 [...] effusion or pneumothorax. No acute osseous abnormality. [facility] with right basilar opacity, could be atelectasis or pneumonia Workstation ID: [id number] A1Con [id number] A1c/Hemoglobin.total mass fraction (Bld)7.6 %High4.0-6.0The Parkview HealthComment on above:Performed By: #### [id number] #### [facility] [address] [place] [address], UN[facility] HOSPITALSHemoglobin A1c/Hemoglobin.total mass fraction (Bld)171 mg/yJCzhy51-670Zus Parkview HealthComment on above:Performed By: #### [id number] #### [facility] [address] [place] [address], [place] Vital Signs Date TimeVital SignValuePerforming WbwtdyurbUemxffey43-29-8745 08:28-0400Body mass index (BMI) [Ratio]38.62 kg/g7CbjomujArt Freeman DO Work Phone: [facility] Fgstzr98-19-3855 08:28-0400Body havocdwscie02.7 [degF]Art Freeman DO Work Phone: [facility] Plcpee52-19-5977 08:28-0400Body qerbix685.94 kgArt Freeman DO Work Phone: [facility] Nvstdk67-81-6494 08:28-0400Diastolic blood xlscgsfi39 mm[Hg]Art Freeman DO Work Phone: [phone] Vkwnta40-72-5267 08:28-0400Heart rate 92 /minMicfelicia Freeman DO Work Phone: [facility]10-31-2025 08:28-1893LyB6% (BldA) [Mass fraction]96 %Art Freeman DO Work Phone: [facility] Epqsxc41-07-6553 08:28-0400Systolic blood nqiggqyj348 mm[Hg]Art Freeman DO Work Phone: [facility]10-22-2025 10:45-0400Body hyjioifkexz20.2 [degF]Cheng Staples AVIONICS ELECTRICAL ENGINEER-C Work Phone: [facility]10-22-2025 10:45-0400 Diastolic blood iikulred16 mm[Hg]Cheng Staples AVIONICS ELECTRICAL ENGINEER-C Work Phone: [facility]10-22-2025 10:45-0400 Heart rate88 /minLisa Aichholz AVIONICS ELECTRICAL ENGINEER-C Work Phone: [facility]10-22-2025 10:45-0400 Respiratory rate16 /minLisa Aichholz AVIONICS ELECTRICAL ENGINEER-C Work Phone: [facility]10-22-2025 10:45-0400 SaO2% (BldA) [Mass fraction]98 %Cheng Staples AVIONICS ELECTRICAL ENGINEER-C Work Phone: [facility]10-22-2025 10:45-0400 Systolic blood lrteepux929 mm[Hg]Cheng Staples AVIONICS ELECTRICAL ENGINEER-C Work Phone: [facility]09-22-2025 08:17-0400 Body mass index (BMI) [Ratio]37.31 kg/m2Pm[address]09-22-2025 08:17-0400Body sxalqu406.[address]09-22-2025 08:17-0400 Diastolic blood wofrjasu25 mm[Hg][address]09-22-2025 08:17-0400Heart rate94 /min[address]09-22-2025 08:17-0400 Systolic blood ywuesmsu036 mm[Hg][address]09-19-2025 10:17-0400Body mass index (BMI) [Ratio]37.46 kg/m7Ilvtryp Badik DO Work Phone: [facility]09-19-2025 10:17-0400Body favtzenuztg20.59 [degF]Art Freeman DO Work Phone: [facility]09-19-2025 10:17-0400Body rddwcu542.4 kgMicfelicia Freeman DO Work Phone: [facility]09-19-2025 10:17-0400Diastolic blood qbjykvms32 mm[Hg]Art Freeman DO Work Phone: [facility]09-19-2025 10:17-0400Heart rate 82 /minMicfelicia Freeman DO Work Phone: [facility] Ilnlqv27-00-0804 10:17-6570VpY0% (BldA) [Mass fraction]96 %Art Freeman DO Work Phone: [facility]09-19-2025 10:17-0400Systolic blood oezqqgqn729 mm[Hg]Art Freeman DO Work Phone: [facility]08-25-2025 13:30-0400Body mass index (BMI) [Ratio]37.59 kg/m2Pmh [address] [place], [place] 9800608-25-2025 13:30-0400 Body hyciqm130.[address] [place], [place] 98[address]608-18-2025 12:22-0400Diastolic blood anuppzxy10 mm[Hg]Cheng Aichholz Work Phone: [facility]08-18-2025 12:22-0400 Heart rate78 /minLisa Aichholz Work Phone: [facility]08-18-2025 12:22-0400 Respiratory rate16 /minLisa Aichholz Work Phone: [phone]-[facility]08-18-2025 12:22-0400 SaO2% (BldA) [Mass fraction]95 %Cheng Aichholz Work Phone: [facility]08-18-2025 12:22-0400 Systolic blood mm[Hg]Cheng Aichholz Work Phone: [phone])346-[facility]08-18-2025 10:40-0400 Inhaled oxygen flow rate2 L/minLisa Aichholz Work Phone: [facility]08-18-2025 08:31-0400 Body ynnbhu916.8 cmLisa Aichholz Work Phone: [facility]08-18-2025 08:31-0400 Body .02 kgLisa Aichholz Work Phone: [facility]08-14-2025 09:26-0400 Body mass index (BMI) [Ratio]37.54 kg/y9Wfgbzomfelicia Freeman DO Work Phone: [facility]08-14-2025 09:26-0400Body zldylxbdbit59.1 [degF]Art Fremean DO Work Phone: [facility]08-14-2025 09:26-0400Body awtkiz962.67 kgMichaedaryn Badik DO Work Phone: [facility]08-14-2025 09:26-0400Diastolic blood tferslww08 mm[Hg]Art Freeman DO Work Phone: [facility]08-14-2025 09:26-0400Heart rate 90 /minMicfelicia Freeman DO Work Phone: [facility]08-14-2025 09:26-0133XyI3% (BldA) [Mass fraction]95 %Art Freeman DO Work Phone: [facility]08-14-2025 09:26-0400Systolic blood eemezogd152 mm[Hg]Art Freeman DO Work Phone: [facility]08-07-2025 10:48-0400Body ryydgk647.8 cmLisa Aichholz Work Phone: [facility]08-07-2025 10:48-0400 Body mass index (BMI) [Ratio]38.2 kg/m2Lisa Aichholz Work Phone: [facility]08-07-2025 10:48-0400 Body aucraxrdwtj51.2 [degF]Cheng Aichholz Work Phone: [facility]08-07-2025 10:48-0400 Body ethlqj800.1 kgLisa Aichholz Work Phone: [facility]08-07-2025 10:48-0400 Diastolic blood cbyvvjvs82 mm[Hg]Cheng Aichholz Work Phone: [facility]08-07-2025 10:48-0400 Heart rate68 /minLisa Aichholz Work Phone: [facility]08-07-2025 10:48-0400 Respiratory rate16 /minLisa Aichholz Work Phone: [facility]08-07-2025 10:48-0400 SaO2% (BldA) [Mass fraction]98 %Cheng Staples Work Phone: [facility]08-07-2025 10:48-0400 Systolic blood igfopnzk982 mm[Hg]Cheng Staples Work Phone: [facility]06-19-2025 09:29-0400 Body mass index (BMI) [Ratio]38.11 kg/z7Lxulbmxfelicia Freeman DO Work Phone: [facility] Zykfxy86-31-3853 09:29-0400Body xwgdkowlhrd36.81 [degF]Art Freeman DO Work Phone: [facility] Jumvab79-47-9026 09:29-0400Body bvnrei095.39 kgMicfelicia Freeman DO Work Phone: [facility] Fsoogx18-68-0929 09:29-0400Diastolic blood tlohgpzt59 mm[Hg]Art Freeman DO Work Phone: [facility] Stcrrh31-23-7168 09:29-0400Heart rate 90 /minMicfelicia Freeman DO Work Phone: [facility] Bxpqbp83-85-8914 09:29-0373UiO6% (BldA) [Mass fraction]95 %Art Freeman DO Work Phone: [facility] Vskczr37-25-1924 09:29-0400Systolic blood mm[Hg]Art Freeman DO Work Phone: [facility] Hzagqe61-91-4434 14:12-0400Body alchng552 cmMicfelicia Freeman DO Work Phone: [facility]06-05-2025 14:12-0400Body mass index (BMI) [Ratio]38.05 kg/w6JchqlhzArt Freeman DO Work Phone: [facility]06-05-2025 14:12-0400Body hufosfmrgda04.1 [degF]Art Freeman DO Work Phone: [facility]06-05-2025 14:12-0400Body qzuwti340.21 kgArt Freeman DO Work Phone: [facility]06-05-2025 14:12-0400Diastolic blood xdzrudbk87 mm[Hg]Art Freeman DO Work Phone: [facility]06-05-2025 14:12-0400Heart rate 95 /minMicfelicia Freeman DO Work Phone: [facility]06-05-2025 14:12-2095RkF8% (BldA) [Mass fraction]96 %Art Freeman DO Work Phone: [facility]06-05-2025 14:12-0400Systolic blood ipxgucln380 mm[Hg]Art Freeman DO Work Phone: [facility]06-03-2025 09:00-0400Body ebljbnipdoo54.7 [degF]Sherri Garcia TRACK REPAIR SUPERVISOR-DETAIL DRAFTER Work Phone: [facility]06-03-2025 09:00-0400Diastolic blood vgjedyll71 mm[Hg]Sherri Garcia TRACK REPAIR SUPERVISOR-DETAIL DRAFTER Work Phone: [facility]06-03-2025 09:00-0400Heart rate 97 /minSherri Kaitlynn BURNS-DETAIL DRAFTER Work Phone: [facility]06-03-2025 09:00-0400 Respiratory rate16 /minSherri Kaitlynn TRACK REPAIR SUPERVISOR-DETAIL DRAFTER Work Phone: [facility]06-03-2025 09:00-0400Systolic blood tffaombn234 mm[Hg]Sherri Garcia GRANT-DETAIL DRAFTER Work Phone: [facility]05-21-2025 10:36-0400Body mmzxjqfsame43.5 [degF]Sherri Garcia TRACK REPAIR SUPERVISOR-DETAIL DRAFTER Work Phone: [facility]05-21-2025 10:36-0400Diastolic blood mm[Hg]Sherri Garcia TRACK REPAIR SUPERVISOR-DETAIL DRAFTER Work Phone: [phone]05-21-2025 10:36-0400Heart rate 100 /minSherri Garcia TRACK REPAIR SUPERVISOR-DETAIL DRAFTER Work Phone: [phone]05-21-2025 10:36-0400 Respiratory rate16 /minSherri Garcia TRACK REPAIR SUPERVISOR-DETAIL DRAFTER Work Phone: 1(033)268-[address] [place], [place] [address]305-21-2025 10:36-0400Systolic blood wtgzuevp086 mm[Hg]Sherri Garcia TRACK REPAIR SUPERVISOR-DETAIL DRAFTER Work Phone: [phone]05-07-2025 10:56-0400Body qqnmzhnohwb44.7 [degF]Sherri Garcia TRACK REPAIR SUPERVISOR-DETAIL DRAFTER Work Phone: [phone]05-07-2025 10:56-0400Diastolic blood osnbspem46 mm[Hg]Sherri Garcia TRACK REPAIR SUPERVISOR-DETAIL DRAFTER Work Phone: [phone]05-07-2025 10:56-0400Heart rate 94 /minSherri Garcia TRACK REPAIR SUPERVISOR-DETAIL DRAFTER Work Phone: [phone]05-07-2025 10:56-0400 Respiratory rate16 /Montserrat Garcia TRACK REPAIR SUPERVISOR-DETAIL DRAFTER Work Phone: [phone]05-07-2025 10:56-0400Systolic blood cjvzcveg273 mm[Hg]Sherri Garcia TRACK REPAIR SUPERVISOR-DETAIL DRAFTER Work Phone: [phone]12-03-2024 08:45-0500Body yapphi035.8 Randall Price MD Work Phone: [facility]12-03-2024 08:45-0500Body mass index (BMI) [Ratio]36.73 kg/q1LpbtfiiDavida Price MD Work Phone: [facility]12-03-2024 08:45-0500Body temperature 98.29 [degF]Davida Price MD Work Phone: [facility]12-03-2024 08:45-0500Body blceap103.12 kgDavida Price MD Work Phone: [facility]12-03-2024 08:45-0500Diastolic blood harmtcif38 mm[Hg]Davida Price MD Work Phone: [facility]12-03-2024 08:45-0500Heart akno220 /minDavida Price MD Work Phone: [facility]12-03-2024 08:45-4613GcZ9% (BldA) [Mass fraction]96 %Davida Price MD Work Phone: [facility]12-03-2024 08:45-0500Systolic blood kwprykzj227 mm[Hg]Davida Price MD Work Phone: [facility]06-18-2024 14:19-0400Body ptsavn850.8 cmLisa Aichholz Work Phone: [facility]06-18-2024 14:19-0400 Body mass index (BMI) [Ratio]38.4 kg/m2Lisa Aichholz Work Phone: [facility]06-18-2024 14:19-0400 Body xfcpju724.56 kgLisa Aichholz Work Phone: [facility]03-14-2024 14:52-0400 Diastolic blood ctcbuiae23 mm[Hg]Cheng Aichholz Work Phone: [facility]03-14-2024 14:52-0400 Heart rate88 /minLisa Aichholz Work Phone: [facility]03-14-2024 14:52-0400 Respiratory rate16 /minLisa Aichholz Work Phone: [facility]03-14-2024 14:52-0400 SaO2% (BldA) [Mass fraction]98 %Cheng Aichholz Work Phone: [phone])008-[facility]03-14-2024 14:52-0400 Systolic blood ktyrdhxn462 mm[Hg]Cheng Aichholz Work Phone: [phone])[address]03-14-2024 12:58-0400 Body mweiov616.8 cmLisa Aichholz Work Phone: [phone])[address]03-14-2024 12:58-0400 Body .02 kgLisa Aichholz Work Phone: [phone]02-16-2024 11:03-0500 Body uhztlm157.02 kgLisa Aichholz Work Phone: [phone]02-16-2024 11:03-0500 Diastolic blood ppfrhuyy75 mm[Hg]Cheng Aichholz Work Phone: [phone]02-16-2024 11:03-0500 Heart rate95 /minLisa Aichholz Work Phone: 1([phone])178-[address] [place], [place] [address]02-16-2024 11:03-0500 Systolic blood oiltxesw124 mm[Hg]Cheng Aichholz Work Phone: [facility]12-18-2023 15:00-0500 Body sawfxi802.8 cmTondra Mapus Other [facility]12-18-2023 15:00-0500 Body mass index (BMI) [Ratio]36.94 kg/n6Fqdupr Mapus Other [place] [employer] Other 12-18-2023 15:00-0500Body hnrfol961.8 kgTondra Mapus Other [facility]12-18-2023 15:00-0500 Diastolic blood egnaeron81 mm[Hg]Tondra Mapus Other [facility]12-18-2023 15:00-0500 Respiratory rate18 /minTondra Mapus Other [facility] [employer] Other 12-18-2023 15:00-2703MbI0% (BldA) [Mass fraction]95 % Tondra Mapus Other [facility] [employer] Other 12-18-2023 15:00-0500Systolic blood yvflyshz245 mm[Hg] Tondra Mapus Other [facility]10-04-2023 10:00-0400 Body gkodxk980.8 cmRjannet Scovanner Other [employer] Other 10-04-2023 10:00-0400Body mass index (BMI) [Ratio] 35.97 kg/m2Ryan Scovanner Other [employer] Other 10-04-2023 10:00-0400Body gifevp424.72 kgRyan Scovanner Other [employer] Other 10-04-2023 10:00-0400Diastolic blood mm[Hg] Maxi Scovanner Other [employer] Other 10-04-2023 10:00-0400Systolic blood npfpemnd520 mm[Hg] Maxi Scovanner Other [employer] Other 04-04-2023 11:00-0400Body anwbkb443.8 cmCamerpierre Fernandez Other [employer] Other 04-04-2023 11:00-0400Body mass index (BMI) [Ratio] 34.43 kg/f5Lohegno Ditty Other [employer] Other 04-04-2023 11:00-0400Body odhxbk867.86 kgCameron Ditty Other [employer] Other 04-04-2023 11:00-0400Diastolic blood zigzqwer57 mm[Hg] Amor Ditty Other [employer] Other 04-04-2023 11:00-0400Systolic blood boqdjnps197 mm[Hg] Amor Ditty Other [employer] Other 10-04-2022 11:00-0400Body acnmzx474.8 cmCameron Ditty Other [employer] Other 10-04-2022 11:00-0400Body mass index (BMI) [Ratio] 34.15 kg/q6Ymhnzwi Ditty Other [employer] Other 10-04-2022 11:00-0400Body omvexc495.96 kgCameron Ditty Other [employer] Other 10-04-2022 11:00-0400Diastolic blood ctkvoooi88 mm[Hg] Amor Ditty Other [employer] Other 10-04-2022 11:00-0400Systolic blood mm[Hg] Amor Ditty Other [employer] Other 03-18-2021 13:44-0400Body Rrmpujapsmh88.9 [degF] [facility]BzxfsHwhvUvklnj04-55-8392 13:44-0400BP Lgkcyjngx66 mm[Hg][facility]03-18-2021 13:44-0400BP Ftaepfuq553 mm[Hg][facility] 02-06-2021 13:44-0400Pulse (Heart Rate)129 /minSentara CarePlex HospitalJhyrgCzzkRtesrk07-89-4844 13:44-0400Pulse Ucuyccux94 %[facility] HospitalDouchInlgLocipl52-16-4528 13:44-0400 Respiratory Rate16 /[facility]02-18-2021 14:15-0500Body Yswopeyofof94.2 [degF][facility] HospitalOzamwDlpsAonohn13-24-7679 14:15-0500BP Rnutfgyyt83 mm[Hg][facility] HospitalHygbvHxbtKlmfso99-32-3349 14:15-0500BP Lyylslsn22 mm[Hg][facility] HospitalJznsbKrimQdxbkr83-22-0768 14:15-0500Pulse (Heart Rate)106 /[facility]02-18-2021 14:15-0500Pulse Tnhxnkdi45 %[facility] 01-09-2021 14:15-0500Respiratory Rate12 /[facility]02-05-2021 10:35-0500Body Uapeaizirit20.1 [degF][facility] HospitalJhrgjuNjhrVphapb79-16-3078 10:35-0500 BP Toecvdhgb08 mm[Hg][facility] HospitalWhqxxnDbylUhjgqs58-74-9027 10:35-0500BP Yneawybd968 mm[Hg][facility] HospitalQafwizZaknZmhwtq35-06-6901 10:35-0500Pulse (Heart Rate)108 /[facility]HealthBhwskwLhxtDoxunn05-54-7010 10:35-0500Pulse Lydayaal37 %[facility] 12-27-2020 10:35-0500Respiratory Rate18 /TriHealthPaztlkDszwBtelrn45-30-8461 14:09-0500Body Tyzjerxysvb66.81 [degF][facility] HospitalSjngjQaiqUzxncf90-87-6016 14:09-0500BP Jslpuqetb81 mm[Hg][facility] HospitalDnszoVgwfTlrnep80-10-7505 14:09-0500BP Bgadwwaa075 mm[Hg][facility] HospitalHgdxsQjtvRlfqkr77-44-6998 14:09-0500Pulse (Heart Rate) 101 /minSentara CarePlex HospitalInnnyCtmiFplwic52-28-1717 14:09-0500Pulse Trkzldbe30 %[facility] HospitalYgzhpVgdyDdxira20-87-3088 14:09-0500Respiratory Rate18 /minHealth[facility]12-31-2020 11:38-0500Body Hxjkobskhsk88.01 [degF][facility]12-31-2020 11:38-0500BP Uudugzcxb96 mm[Hg][facility]12-31-2020 11:38-0500BP Wppcrpab296 mm[Hg][facility]12-31-2020 11:38-0500Pulse (Heart Rate)96 /[facility]-2020 11:38-0500Pulse Oeswtzfj58 %[place] [address]-31-2020 11:38-0500Respiratory Rate18 /minC[facility]12-28-2020 11:38-0500BMI (Body Mass Index)33.21 kg/y2JhvrkiyChestnut Hill Hospital12-28-2020 11:38-0500Body kgC[facility]nut [facility]12-28-2020 11:38-8792Ruofei013.8 cm [facility] Encounters Encounter DateEncounter TypeCare ProviderFacilityStart: 09-21-2025 End: 83-03-6139Vjuwmj outpatient visit 15 minutesMicfelicia Freeman DO Work Phone: [facility] MedicineComment on above: Gastroesophageal reflux disease, unspecified whether esophagitis present (Primary Dx); Type 2 diabetes mellitus with foot ulcer, with long-term current use of insulin [place] Benign essential HTN; Chronic midline low back pain without sciatica; Mixed hyperlipidemia due to type 2 diabetes mellitus (CMS-HCC)Start: 09-21-2025 End: 43-91-7452drukeauynsQGHZRSG D [facility] Ambulatory PPGStart: 09-12-2025 End: 56-46-6239prmopoprqhBkbgJeovany BRITO Work Phone: [phone]-Vhpgsiakt Health Vascular SurgStart: 09-12-2025 End: 86-14-4188Qwfoqte encounter procedureChan Quintanilla MD-[facility] Work Phone: Start: 08-30-2025 End: 16-56-1910Tlxhopvrl encounterCatAsht[facility] - Pharmacy Medication ManagementStart: 08-27-2025 End: 55-07-0896Gonmjdxap encounterArt Freeman DO Work Phone: [facility] Family MedicineStart: 08-24-2025 End: 65-78-2920Rwgwveayc encounterEv Marquez [facility] CenterMedica Physicians Family MedicineStart: 08-22-2025 End: 95-74-7236Fcpbagn encounter procedureCathy Leggett APRN-CT Scan [address] [place] Work Phone: Start: 08-22-2025 End: 85-45-1436fyvaenpyafZjxgJeovany BRITO Work Phone: [facility] Work Phone: Start: 08-16-2025 End: 86-26-9732Srfowyhdu encounterEv Marquez CMARutland Regional Medical CenterMedica Physicians Family MedicineStart: 08-13-2025 End: 54-82-6317yvflkbytgzRNDFOQO D BADIKCrystal Clinic Orthopedic CenterComment on above: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 ([facility]-H[facility]) [E11.628, L84] (Primary Dx)Start: 08-10-2025 End: 50-97-4456Izmzbj outpatient visit 25 minutesMicfelicia Freeman DO Work Phone: [facility] Physicians Family MedicineComment on above: Type 2 diabetes mellitus with other circulatory complication, with long-term current use of insulin([facility]) (Primary Dx); Type 2 diabetes mellitus with foot ulcer, with long-term current use of insulin ([facility]); Benign essential HTN; Mixed hyperlipidemia due to type 2 diabetes mellitus ([facility]) ; Gastroesophageal reflux disease, unspecified whether esophagitis present; Chronic midline low back pain without sciatica; Ulcer of right foot with fat layer exposed ([facility])Start: 08-10-2025 End: 99-04-5379sbtbaovfaaGXCBQCN D BADDelaware [facility] Hospital Ambulatory PPGStart: 07-17-2025 End: 72-85-6170qsxqoyisukGiwylrucw Pharmacy Medication Management Work Phone: - Pharmacy Medication ManagementStart: 07-17-2025 End: 54-85-2334Glaxyq-up encounterAvera Queen Of Peace Hospitaldaryn Freeman Work Phone: [facility] Physicians Family MedicineComment on above: Lipid panelStart: 07-16-2025 End: 10-07-1692Zgndqnkp Support[address] - Pharmacy Medication ManagementComment on above:Type 2 diabetes mellitus with other circulatory complication, with long-term current use of insulin([facility]) (Primary Dx)Start: 97-38-8158Fak-patient / Non-visitMabashir Quintanilla MD- [facility] Vascular Surg Work Phone: Start: 07-09-2025 End: 46-14-9806Mikvrmcaw to same day surgery centerMabashir Quintanilla MD- Interventional Radiology Work Phone: Start: 07-09-2025 End: 36-09-2217gcmpgymwotHsgi J Aichholz Work Phone: [facility] Work Phone: Start: 07-05-2025 End: 55-53-5625Snuccfvhe encounterPronorth al[facility] Pharmacy Medication Management Work Phone: - Pharmacy Medication ManagementComment on above:Type 2 diabetes mellitus with foot ulcer, with long- term current use of insulin ([facility])Start: 07-05-2025 End: 45-45-7566Gneowlvvpdhq care manage srvc 14 day dischargeArt Freeman DO Work Phone: ProAnabella Say Family MedicineComment on above: [place] of right [place] with fat layer exposed [place] [place] Type 2 diabetes mellitus with foot ulcer, with long-term current use of insulin [place] Hyperlipidemia, unspecified hyperlipidemia type; Gastroesophageal reflux disease, unspecified whether esophagitis present; Peripheral artery diseaseStart: 07-05-2025 End: 49-91-0036dgixwmfmijGGQCMLW D [facility] Amb[facility] PPGStart: 06-28-2025 End: 30-85-0634Tcihuql encounter procedureMabashir Quintanilla MD-[facility] VascularStart: 06-28-2025 End: 08-88-2611rkejgjtlgsFxpj J Aichholz Work Phone: [facility] Work Phone: Start: 06-28-2025 End: 43-13-3900uqehvsufixNxdt J Aicjesi Work Phone: [facility] Work Phone: Start: 06-28-2025 End: 55-23-6579Oebuool encounter procedureCathy Ramirez APRNov[facility] Work Phone: Start: 06-07-2025 End: 86-50-4306wbshtgfllsESWWUNZV L [facility]art: 05-22-2025 End: 74-74-9524Ibzmlcwls encounterSstacy Deal Family MedicineComment on above:ResultsStart: 05-16-2025 End: 67-25-4925Ktmsjr OnlyArt Freeman DO Work Phone: [facility] Deal Family MedicineComment on above: Type 2 diabetes mellitus with foot ulcer, with long-term current use of insulin [place] (Primary Dx)Start: 05-13-2025 End: 97-52-9207EvqpwlFnvyvsd D Badik DO Work Phone: [facility] Family MedicineComment on above: Type 2 diabetes mellitus with foot ulcer, with long-term current use of insulin ([facility])Start: 05-10-2025 End: 93-01-0050Huxdlw outpatient visit 25 minutesArt Freeman DO Work Phone: [facility] Family MedicineComment on above: Type 2 diabetes mellitus with foot ulcer, with long-term current use of insulin ([facility]); Benign essential HTN; Gastroesophageal reflux disease, unspecified whether esophagitis present; Chronic midline low back pain without sciatica; Encounter for screening for malignant neoplasm of prostate; Fatigue, unspecified typeStart: 05-10-2025 End: 77-30-8352dhyylxoctzQOHZAZWEvergreenHealth Ambulatory PPGStart: 05-02-2025 End: 13-86-1204etwhshejfhGXOOLJWProvidence St. [facility]'s Hospital HospitalStart: 04-26-2025 End: 77-93-9752Uricdf outpatient new 45 minutesArt Freeman DO Work Phone: [facility] Family MedicineComment on above: Benign essential HTN (Primary Dx); Type 2 diabetes mellitus with foot ulcer, with long-term current use of insulin ([facility]); Chronic midline low back pain without sciatica; Fatty liver disease, nonalcoholic; Visit for wound check; Hyperglycemia; Gastroesophageal reflux disease, unspecified whether esophagitis presentStart: 04-26-2025 End: 73-48-7337vzzzlmnyuwRWQKYNXEvergreenHealth Ambulatory PPGStart: 04-24-2025 End: 59-70-2010xzgcoxomvgAGZA P [facility]YMartins [facility]erry [facility] HospitalStart: 04-24-2025 End: 24-07-0631Cqvxvxg encounter procedureSherri Garcia TRACK REPAIR SUPERVISOR-DETAIL DRAFTER Work Phone: [facility]ound Care ClinicComment on above:Diabetic ulcer of right midfoot associated with type 2 diabetes mellitus, with muscle involvement without evidence of necrosis ([facility]) (Primary Dx); 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 ([facility])Start: 04-20-2025 End: 08-07-4656asdludckwwYrtiwg D Grubic DO Work Phone: [facility] – Madrastart: 04-18-2025 End: 43-89-5361Kewuqmtrd encounterJerome Del Toro DO Work Phone: General SurgeryComment on above:Care Coordination (Appeal for GPOEM denial )Start: 04-11-2025 End: 86-46-6759Snvyzmq encounter Vipul Garcia TRACK REPAIR SUPERVISOR-DETAIL DRAFTER Work Phone: [facility] Wound Care ClinicComment on above:Diabetic ulcer of right midfoot associated with type 2 diabetes mellitus, with muscle involvement without evidence of necrosis (CMS- HCC) (Primary Dx); History of transmetatarsal amputation of right foot (CMS-HCC); 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); Wound, open, foot with complication, left, initial encounter; Unstable ankle, rightStart: 04-11-2025 End: 75-39-2748gntxknieybCJDM P CH[facility]YMartins Ferry Hospital HospitalStart: 04-10-2025 End: 77-86-6570dvfqywbujpRHETARZ S CLINEFacility:[facility] HospitalStart: 04-10-2025 End: 79-41-9728bimktulolsYODZIS D GRUBICFacility:[facility] HospitalStart: 04-05-2025 End: 90-15-6265Naxnlkatt encounterMicfelicia S Figueredo DO Work Phone: GastroenterologyComment on above:Care Coordination (Gastroparesis clinic: chart review; new patient call )Start: 03-28-2025 End: 62-37-2746Hloytf outpatient new 20 minutesSherri Garcia TRACK REPAIR SUPERVISOR-DETAIL DRAFTER Work Phone: [facility] Wound Care ClinicComment on above:Diabetic ulcer of right midfoot associated with type 2 diabetes mellitus, with muscle involvement without evidence of necrosis (CMS- HCC) (Primary Dx); History of transmetatarsal amputation of right foot (CMS-HCC); Visit for wound checkStart: 03-28-2025 End: 78-16-5821xvzwatcjsxHRED P CHENEYMartins Ferry Hospital HospitalStart: 03-04-2025 End: 17-88-0004Vdycjprpl department patient visitNO PCP NO PCPProMercy Health [facility] HospitalStart: 11-21-2024 End: 02-56-2396Zfipobbtp encounterDavida Price MD Work Phone: GastroenterologyComment on above:Director Prison - Other (Dr Yoon's office/request for office note)Start: 10-24-2024 End: 68-28-1030Bopfizp encounter procedureDavida Price MD Work Phone: GastroenterologyComment on above:Gastroparesis (Primary Dx)Start: 10-24-2024 End: 09-98-1815gnqehiikypOMHEQPW LEMBOFacility:[facility] Hospitaltart: 49-50-9387Crgogbrwz encounterMicfelicia Figueredo DO Work Phone: GastroenterologyStart: 06-12-2024 End: 28-48-9692jeivcqsiytJmua J Aichholz Work Phone: [facility] Work Phone: Start: 06-12-2024 End: 54-85-1939Icpjtwa encounter procedureLisa Aichholz Work Phone: [facility] [place] [place] Work Phone: Start: 06-06-2024 End: 42-69-3546fzmwjkzpuvLqfp J Aichholz Work Phone: [facility] Work Phone: Start: 06-06-2024 End: 07-91-1434Bdabkza encounter procedureLisa Aichholz Work Phone: [facility] [place] Work Phone: Start: 05-09-2024 End: 31-62-4415Pikojne encounter procedureLisa Aichholz Work Phone: [facility] Work Phone: Start: 03-13-2024 End: 86-20-0189pkbdzbahifUCRV AICHHOLZNot AvailableStart: 57-06-0193Ghu-patient / Non-visitLisa Aichholz Work Phone: [facility] Work Phone: Start: 02-03-2024 End: 76-48-9051Ubrogwvcm to same day surgery centerLisa Aichholz Work Phone: [facility] Work Phone: Start: 02-03-2024 End: 43-09-9318lxkeqfvbxiEjdk J Aichholz Work Phone: [facility] Work Phone: Start: 01-07-2024 End: 09-25-8835Imkhxib encounter procedureLisa Aichholz Work Phone: [facility] Gastroenterology Work Phone: Start: 01-06-2024 End: 83-79-8063ehvlmduowaVWHC AICHHOLZNot AvailableStart: 36-11-0763Rpqcsq flowsheetLisa Aichholz AVIONICS ELECTRICAL ENGINEER Work Phone: [facility] FMStart: 21-67-5376Igioxp flowsheetLisa Aichholz AVIONICS ELECTRICAL ENGINEER Work Phone: [facility] FMStart: 11-25-2023 End: 72-44-7842dzubgfryexCfev Scovanner Other [employer] Other Start: 73-04-0707Rakhjy outpatient visit 15 minutes Maxi Huber GastroenterologyStart: 16-47-7480Vahtqse encounter procedure Cheng Bel Work Phone: [facility]-Start: 11-09-2023 End: 11-91-1293qxfisyoqanYwjvji Mapus Other [facility] [employer] Other Start: 26-58-8695Ikfluedqm encounterTondra Tyrell Zazueta [facility] Care ClinicStart: 11-08-2023 End: 32-75-7312Xymvkyofhg RecurringLisa Calixtohholnia Work Phone: [facility]Di[facility] Work Phone: Start: 11-08-2023 End: 27-99-0786vqtrdiyspwTtyb J Aichjesi Work Phone: [facility] [employer] Other Start: 77-96-9350MHXA visit new patientSebastián KruseJackson County Regional Health Center ClinicStart: 11-08-2023 End: 34-93-1152Wgojjkh encounter procedureLisa Calixtohjesi Work Phone: [facility] Work Phone: Start: 11-02-2023 End: 13-66-8341ntcteuffvaIPYW CALIXTOHHOLZNot AvailableStart: 09-15-2023 End: 73-87-9094gdolrownipHkon Fitt Other [facility] [employer] Other Start: 17-11-5823Ssbrvmakp encounterDawn [facility] ClinicStart: 09-13-2023 End: 57-36-1933cqvrqcmpkeFhtv Fitt Other [employer] Other Start: 74-45-1460Qmbqbwufb encounterDawn [facility] Hospitaltart: 08-25-2023 End: 64-97-8712dbvxfkmvqwXhko Scovanner Other [employer] Other Start: 82-13-0169Xativm outpatient visit 15 minutes Maxi CroftG GastroenterologyStart: 03-18-2023 End: 50-35-4922txbubiqsgiXBHWCJGY TROTTIFacility:R9Orxpy: 02-23-2023 End: 67-98-1663zpawcovhlbAfpckvz Ditty Other [facility] [employer] Other Start: 70-60-5157Ubjuxto encounter procedureCamamaury AdamsyERNESTOG GastroenterologyStart: 08-25-2022 End: 25-02-8824vkryapfoquUsxljws Ditty Other [employer] Other Start: 36-20-4190Ptdayyx encounter procedureCameroesdras CarterG GastroenterologyStart: 04-02-2021 End: 01-14-1987tfcwbhlufkXHTLNHORBU W CHINRogerMiami Valley Hospital Start: 02-06-2021 End: 35-29-6777Stzngra encounter procedureUCHENNA MARTINTUS [facility] Hospitaltart: 02-06-2021 End: 11-12-3659Zroltkp encounter procedureUchjenna Bell Work Phone: [facility] Wound CareComment on above:Foot abscess, left (Primary Dx)Start: 01-29-2021 End: 24-26-1542Icemeh OnlyTsering Silvestre Work Phone: [facility] Start: 01-24-2021 End: 21-15-6299Hxpmcpp encounter procedureAd[facility] Start: 01-24-2021 End: 31-33-8943Awavlfn encounter procedureAscension Northeast Wisconsin Mercy Medical Centerr Work Phone: [facility] Wound CareComment on above:Foot abscess, left (Primary Dx); Charcot foot due to diabetes mellitus (HCC); MSSA (methicillin susceptible Staphylococcus aureus) infectionStart: 01-24-2021 End: 03-42-5078Yykati outpatient visit 15 fredyStephanierachana Millicent Cheryr Work Phone: [phone] [place] [address] Wound CareComment on above:Subacute osteomyelitis of left foot (HCC) (Primary Dx)Start: 01-09-2021 End: 60-44-6362Ynjrjwu encounter procedureAdams County Hospital Start: 01-09-2021 End: 09-42-5089Tbrjexexks hospital visit by physicianPremier Health Atrium Medical Centerusman [place] Work Phone: [phone] [place] [address] DiagnosticsComment on above:Arrived Start: 01-09-2021 End: 70-27-0058Wsakts outpatient visit 25 minutesPremier Health Atrium Medical Centerusman Dilip Work Phone: [phone] [place] [address] Wound CareComment on above: Charcot's joint of ankle, unspecified laterality (Primary Dx)Start: 01-09-2021 End: 84-60-9583Jitvhwv encounter procedureUchjenna Escobar Ezarline Work Phone: [phone] [place] [address] Wound CareComment on above:Subacute osteomyelitis of left foot (HCC) (Primary Dx)Start: 12-27-2020 End: 53-71-6215Mchwxdx encounter [facility] Start: 12-27-2020 End: 67-12-5289Oqyrsr outpatient visit 15 [facility] Hospitalusman ReeceDilip Work Phone: [phone] [place] [address] Wound CareComment on above:Subacute osteomyelitis of left foot (HCC) (Primary Dx); Charcot's joint of ankle, unspecified lateralityStart: 12-19-2020 End: 73-90-4274Wmahwez encounter procedureUCHENNA MICHELLE BELLOhioHealth Arthur G.H. Bing, MD, Cancer Centertart: 12-19-2020 End: 30-35-4402Tlwrfvq encounter procedureUchjenna Escobar Ezike Work Phone: [place] [address] Wound CareComment on above:Subacute osteomyelitis of left foot (HCC) (Primary Dx)Start: 11-20-2020 End: 92-96-1210Waudfndkzyaba procedureCathy J CatronOhioHealthStart: 11-20-2020 Patient encounter procedureCATHY J CATRONHomeHealthStart: 11-05-2020 End: 64-66-7432Krsdzhawvk and management of inpatientPROVIDER NOT IN SYSTEM 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 Procedures DateProcedureProcedure DetailPerforming ClinicianStart: 37-41-1519Ptvucaeiib glycosylated o7tYwouaxzArt Freeman DO Work Phone: Start: 31-55-0564Flwne depression screening assessment Art Freeman DO Work Phone: Start: 07-28-9922RU angiography of headLisa Bel AVIONICS ELECTRICAL ENGINEER-C Work Phone: Start: 91-88-0124AD angiography of neck vesselsLisa Bel AVIONICS ELECTRICAL ENGINEER-C Work Phone: Start: 47-66-6370Nwbvc depression screening assessment Art Freeman DO Work Phone: Start: 58-56-2159VG Angiogram w/TLA/Stent Right Leg (Right)Cheng Bel Work Phone: Start: 80-41-0624Ugfkw depression screening assessment [facility] Work Phone: [phone]: 74-14-0830Civqgl-up visitFollow-upMICHAEDaryn FREEMANStart: 28-69-3378Fdpha depression screening assessmentArt Freeman DO Work Phone: Start: 97-15-7382Rzvyz depression screening assessment Art Freeman DO Work Phone: Start: 93-23-6255DSERDKR COMMUNICATIONSherri Garcia APRN-DETAIL DRAFTER Work Phone: Start: 90-99-3642Vofdf immobilization, pressure, and attention to woundMary P Kaitlynn TRACK REPAIR SUPERVISOR-DETAIL DRAFTER Work Phone: Start: 26-54-2344CYVFCVC COMMUNICATIONMary P Kaitlynn TRACK REPAIR SUPERVISOR-DETAIL DRAFTER Work Phone: Start: 26-58-7950Xhwoh immobilization, pressure, and attention to woundMary P Kaitlynn TRACK REPAIR SUPERVISOR-DETAIL DRAFTER Work Phone: Start: 13-65-7863Bwjgd immobilization, pressure, and attention to woundMary P Kaitlynn TRACK REPAIR SUPERVISOR-DETAIL DRAFTER Work Phone: Start: 48-97-1139Annurggiqkgm gastric emptying study Cheng Bel Work Phone: Start: 02-59-9371Taokcymz tomography of abdomen and pelvis with contrastLisa Denisemercy philadelphia hospitalnia Work Phone: Start: 47-52-0034Ojgge 1996 panel - Serum or Plasma Davida Price MD Work Phone: Start: 87-86-0586Ljlpxzgzzlgb [Mass/volume] in Urine by Test stripSherri Kaitlynn CAIN-DETAIL DRAFTER Work Phone: Start: 22-52-4912XcswzkkjfafztjkmgxbfwwgtdzAqjc Jeremieuniversity hospitals tripoint medical centernia Work Phone: Start: 73-75-3214O-ray of left ankleDina Millicent Cherry Work Phone: start: 99-08-7235L-ray of left footDina Millicent Cherry Work Phone: start: 18-60-6215Ulgszoo microbial cultureDina Millicent Cherry Work Phone: start: 71-51-3099Ngyrlsxm identified in Bone by Aerobe cultureDina Millicent Cherry Work Phone: start: 42-54-2512VNNRRHKdjz Millicent Cherry Work Phone: start: 26-73-8655Iumklrj [Mass/volume] in Bloodmed Mohamed Mosalem Work Phone: Start: 85-88-1472Qwhcvxw [Mass/volume] in Bloodmed Mohamed Mosalem Work Phone: Start: 19-08-0594Bqiawvi [Mass/volume] in Bloodmed Mohamed Mosalem Work Phone: Start: 37-68-5799Xhnid metabolic 2000 panel - Serum or PlasmaBaTurnKey Vacation Rentalsat [employer] Work Phone: Start: 97-21-5829Gtdbiajy blood count (hemogram) panel - Blood by Automated countBaTurnKey Vacation Rentalsat [employer] Work Phone: Start: 44-72-7988Nzhnowsji [Mass/volume] in Serum or PlasmaBaGR[employer] Systems Work Phone: Start: 49-78-0646Gzckaja [Mass/volume] in Bloodmed Mohamed Mosalem Work Phone: Start: 98-35-1399Kzkduom [Mass/volume] in Bloodmed Mohamed Mosalem Work Phone: Start: 46-76-3889Unlxcgk [Mass/volume] in Bloodmed Mohamed Mosalem Work Phone: Start: 78-82-7787Mbmklfk [Mass/volume] in Blood Flako Pinedo Work Phone: Start: 78-43-6641Jghss metabolic 2000 panel - Serum or PlasmaBahzat [employer] Work Phone: Start: 11-20-2020C reactive protein [Mass/volume] in Serum or PlasmaJeremiah José Work Phone: start: 89-06-6672Qatnyisu blood count (hemogram) panel - Blood by Automated countChippmunkat [employer] Work Phone: Start: 40-93-8027Vpoxrbsinpr sedimentation rate by Westergren methodJeremiah José Work Phone: start: 55-20-7099Muarohyyh [Mass/volume] in Serum or PlasmaBahzat [employer] Work Phone: Start: 58-84-5807Vcsmtjx [Mass/volume] in Blood Flako Pinedo Work Phone: Start: 10-69-9136Lxfatun [Mass/volume] in Blood Flako Pinedo Work Phone: Start: 52-46-6547Nmsbylr [Mass/volume] in Blood Flako Pinedo Work Phone: Start: 16-89-9109Wrifpme [Mass/volume] in Blood Flako Pinedo Work Phone: Start: 05-52-1095Dqhyc metabolic 2000 panel - Serum or PlasmaChippmunkat [employer] Work Phone: Start: 47-92-9250Ssbdjtue blood count (hemogram) panel - Blood by Automated [email or web address] Work Phone: Start: 35-36-7422Deadwrije [Mass/volume] in Serum or PlasmaBahzat [employer] Work Phone: Start: 74-77-4892Kwcdsrs [Mass/volume] in Blood Flako Pinedo Work Phone: Start: 27-82-0159Qhqiuhk [Mass/volume] in Blood Flako Pinedo Work Phone: Start: 76-91-2162Nkflblh [Mass/volume] in Blood Flako Pinedo Work Phone: Start: 10-63-5241Gjlcflriu on tissue specimenLeanne Cherry Work Phone: start: 00-34-0363Fmdjaine identified in Bone by Aerobe Daniel Cherry Work Phone: [phone]-tart: 17-11-4141Ttzbqkio identified in Unspecified specimen by Anaerobe Erinnadia Cherry Work Phone: [phone]-tart: 11-18-2020 End: 55-32-0289KEQLCMXJ AND DRAINAGE FOOT/ANKLELeanne Cherry Work Phone: [phone]-tart: 52-24-7532Qnyxzip [Mass/volume] in Blood Flako Pinedo Work Phone: Start: 91-87-3458Yzdbj metabolic 2000 panel - Serum or PlasmaBaTurnKey Vacation Rentalsat [employer] Work Phone: Start: 11-18-2020C reactive protein [Mass/volume] in Serum or PlasmaDina Millicent Cherry Work Phone: [phone]: 86-90-6356Svrdhuab blood count (hemogram) panel - Blood by Automated countBaGRR Systems Work Phone: Start: 75-86-7648Tdtevbjcrkv sedimentation rate by Westergren methodLeanne Cherry Work Phone: [phone]: 38-18-8466Evtvuxmru [Mass/volume] in Serum or PlasmaBaTurnKey Vacation Rentalsat [employer] Work Phone: Start: 43-26-0635Bhahtxk [Mass/volume] in Blood Flako Pinedo Work Phone: Start: 61-36-5390dPXM in Blood by Coagulation assay Braeden Conte Work Phone: start: 33-67-3489Lnqnjrz [Mass/volume] in Blood Flako Pinedo Work Phone: Start: 23-90-2007Rmlknbg [Mass/volume] in Blood Flkao Pinedo Work Phone: Start: 22-08-7172Aflnoyn microbial cultureBraeden Conte Work Phone: start: 79-26-9370Vppzagl [Mass/volume] in Blood Flako Pinedo Work Phone: Start: 31-11-3888Qlkls metabolic 2000 panel - Serum or PlasmaBahzat [employer] Work Phone: Start: 08-94-9982Zhjyifkq blood count with white cell differential, automatedBraeden Conte Work Phone: start: 51-94-4023Argfpqzv blood count with white cell differential, manualBraeden Conte Work Phone: start: 10-46-8974Qkfgbugfy [Mass/volume] in Serum or PlasmaBahzat [employer] Work Phone: Start: 87-24-7058Loyyjus [Mass/volume] in Blood Flako Pinedo Work Phone: Start: 75-37-9093Ajnekjn [Mass/volume] in Blood Flako Pinedo Work Phone: Start: 80-77-1484Wzrprhe [Mass/volume] in Blood Flako Pinedo Work Phone: Start: 99-75-8141Rfuavgx [Mass/volume] in Blood Flako Pinedo Work Phone: Start: 95-27-3555Inplo metabolic 2000 panel - Serum or PlasmaBahzat [employer] Work Phone: Start: 10-00-8703Xbkhlmsh blood count (hemogram) panel - Blood by Automated countBaTurnKey Vacation Rentalsat [employer] Work Phone: Start: 13-19-3878Skeepkjbhnp sedimentation rate by Westergren methodBraeden Conte Work Phone: start: 48-74-6059Tjbqbiwgo [Mass/volume] in Serum or PlasmaBahzat [employer] Work Phone: Start: 19-67-2626Vqwcsvn [Mass/volume] in Blood Flako Pinedo Work Phone: Start: 30-61-6125S-ray of left footBrian Nam Conte Work Phone: start: 08-32-1704Ekzepyh [Mass/volume] in Blood Flako Pinedo Work Phone: Start: 53-09-7068Flnxgfn [Mass/volume] in Blood Flako Pinedo Work Phone: Start: 86-85-9630Ap abdomen & pelvis w/o contrast materialBanner Cardon Children'S Medical Centerat [employer] Work Phone: Start: 95-00-8323Bshcarv [Mass/volume] in Blood Flako Pinedo Work Phone: Start: 66-50-9848Jasst metabolic 2000 panel - Serum or PlasmaBaat [employer] Work Phone: Start: 39-08-0375Qiyjfzrd blood count (hemogram) panel - Blood by Automated countRallyhoodat [employer] Work Phone: Start: 31-10-7576Cqojajnuy [Mass/volume] in Serum or PlasmaBahzat [employer] Work Phone: Start: 71-98-6168Cqpgbka [Mass/volume] in Blood Flako Pinedo Work Phone: Start: 78-23-6078Awhpujq [Mass/volume] in Blood Flako Pinedo Work Phone: Start: 83-60-7840Tnnlayo [Mass/volume] in Blood Flako Pinedo Work Phone: Start: 47-30-8214Bbufvii [Mass/volume] in Blood Flako Pinedo Work Phone: Start: 63-19-1663Sbetb metabolic 2000 panel - Serum or PlasmaBaat [employer] Work Phone: Start: 47-78-2768Blleqhzw blood count (hemogram) panel - Blood by Automated [email or web address] Work Phone: Start: 13-92-5134Nflzuxuxx [Mass/volume] in Serum or PlasmaBahzat [employer] Work Phone: Start: 30-63-8077Dzmsmds [Mass/volume] in Blood Flako Pinedo Work Phone: Start: 38-69-0959Wnyznms [Mass/volume] in Blood Flako Pinedo Work Phone: Start: 35-29-0978Gczqloz ultrasonography of artery of lower [facility] Work Phone: start: 09-52-5028Ygzcmmz emptying imaging studyBawadsworth-rittman hospital [employer] Work Phone: Start: 36-67-1980Hleapbp [Mass/volume] in Blood Flako Pinedo Work Phone: Start: 50-27-6821Ssitcum [Mass/volume] in Blood Flako Pinedo Work Phone: Start: 79-85-9364Jnzqo metabolic 2000 panel - Serum or PlasmaBaat [employer] Work Phone: Start: 47-28-7883Kpeedsjp blood count (hemogram) panel - Blood by Automated [email or web address] Work Phone: Start: 45-14-7040Frdsxlwam [Mass/volume] in Serum or PlasmaBaat [employer] Work Phone: Start: 96-53-3777Aunygpv [Mass/volume] in Blood Flako Pinedo Work Phone: start: 05-03-5304Gvbakmx [Mass/volume] in Blood Flako Pinedo Work Phone: Start: 99-90-1676Ifmrytm [Mass/volume] in Blood Flako Pinedo Work Phone: Start: 20-09-1130WNQSL-19/INFLUENZA A,B MOLECULAR Bahzat Hugo Work Phone: Start: 75-71-3472Novrhyj [Mass/volume] in Blood Flako Pinedo Work Phone: Start: 79-21-4510Pgcfg metabolic 2000 panel - Serum or PlasmaBaat [employer] Work Phone: Start: 43-86-2937Nvuzkfpg blood count (hemogram) panel - Blood by Automated countBawadsworth-rittman hospital [employer] Work Phone: Start: 60-78-3010Rjzumlcpm [Mass/volume] in Serum or PlasmaBahzat Hugo Work Phone: Start: 36-20-9259Hipwhrams [Mass/volume] in Serum or PlasmaLisa Alicia Montevallo Work Phone: Start: 48-37-5958Xdecuji [Mass/volume] in Blood Flako Pinedo Work Phone: Start: 77-51-0097Jvtpijt [Mass/volume] in Blood Flako Pinedo Work Phone: Start: 09-11-5825Zvjevyxn identified in Bone by Aerobe Daniel Cherry Work Phone: start: 68-70-7853Afwrqoiu identified in Unspecified specimen by Anaerobe Daniel Cherry Work Phone: start: 97-56-5491Rjpzklzxw on tissue specimenDina Millicent Cherry Work Phone: start: 11-11-2020 End: 02-82-4480MCOEUOTDRRC WOUND VACDina Millicent Cherry Work Phone: start: 11-11-2020 End: 61-99-3578QJMGUUEQTNW AND DRESSING CHANGEDina Millicent Cherry Work Phone: start: 97-01-6801Dbpqesc [Mass/volume] in Blood Flako Pinedo Work Phone: Start: 23-50-8288Eyezbdd [Mass/volume] in Blood Flako Pinedo Work Phone: Start: 10-37-8977Raeae metabolic 2000 panel - Serum or PlasmaBaTurnKey Vacation Rentalsat [employer] Work Phone: Start: 43-94-2919Zxlirazp blood count (hemogram) panel - Blood by Automated [email or web address] Work Phone: Start: 73-59-2843Ghobladja [Mass/volume] in Serum or PlasmaBahzat [employer] Work Phone: Start: 87-80-5546Ulurmrm [Mass/volume] in Blood Flako Pinedo Work Phone: Start: 96-05-2026Dwoxfsg [Mass/volume] in Blood Flako Pinedo Work Phone: Start: 50-68-5594Vsomyew [Mass/volume] in Blood Flako Pinedo Work Phone: Start: 91-25-5907Dwtqych [Mass/volume] in Blood Flako Pinedo Work Phone: Start: 33-89-7184Lryop metabolic 2000 panel - Serum or PlasmaBaTurnKey Vacation Rentalsat [employer] Work Phone: Start: 15-78-3559Tjahciic blood count (hemogram) panel - Blood by Automated countChippmunkat [employer] Work Phone: Start: 53-57-8946Qddoapumi [Mass/volume] in Serum or PlasmaBahzat [employer] Work Phone: Start: 2020 End: 26-97-2161Motxqyi [Mass/volume] in BloodFlako Pinedo Work Phone: Start: 10-82-3625Lcotstv [Mass/volume] in Blood Flako Pinedo Work Phone: Start: 11-09-2020 End: 18-36-1482Xnlamjs [Mass/volume] in BloodFlako Pinedo Work Phone: Start: 69-51-6634Myiexyi [Mass/volume] in Blood Flako Pinedo Work Phone: Start: 81-48-0506Ehkoide [Mass/volume] in Blood Flako Pinedo Work Phone: Start: 77-06-1946Ypbwmok [Mass/volume] in Blood Flako Pinedo Work Phone: Start: 91-88-0295Ectdx metabolic 2000 panel - Serum or PlasmaBahzat [employer] Work Phone: Start: 57-00-3489Xyrpffbx blood count (hemogram) panel - Blood by Automated countChippmunkat [employer] Work Phone: Start: 36-93-5796Lokynpylz [Mass/volume] in Serum or PlasmaBahzat [employer] Work Phone: Start: 69-81-6978Iycipav [Mass/volume] in Blood Flako Pinedo Work Phone: Start: 79-48-1526Kmzmwca [Mass/volume] in Blood Flako Pinedo Work Phone: Start: 87-27-3379Sqvayar [Mass/volume] in Blood Flako Pinedo Work Phone: Start: 32-90-7722Phutrtp [Mass/volume] in Blood Flako Pinedo Work Phone: Start: 44-84-4142Ajfesma [Mass/volume] in Blood Flako Pinedo Work Phone: Start: 29-31-1276Dtwvl metabolic 2000 panel - Serum or PlasmaAlaa [employer] [employer] Work Phone: Start: 19-61-8445Sdabyea [Mass/volume] in Blood Flako Pinedo Work Phone: Start: 98-62-8503Wfwzjme [Mass/volume] in Blood Flako Pinedo Work Phone: Start: 03-32-8656Iniidnd microbial cultureGabriella Terrell Work Phone: Start: 87-08-2874Nmlhtst [Mass/volume] in Blood Flako Pinedo Work Phone: Start: 88-87-0949Cwndvjcu blood count with white cell differential, automatedAlaa [facility] Work Phone: Start: 16-10-7369Whyiixpv blood count with white cell differential, manualAlaa AlaRoundarch Work Phone: Start: 39-66-3307Dtdvoflo identified in Unspecified specimen by Aerobe cultureFlako Pinedo Work Phone: Start: 42-72-0795Siujlio [Mass/volume] in Blood Flako Pinedo Work Phone: Start: 78-72-7847Qvxhwia [Mass/volume] in Blood Flako Pinedo Work Phone: Start: 52-27-0216Opmrwhc [Mass/volume] in Blood Flako Pinedo Work Phone: Start: 39-74-9800Pzbdkjz [Mass/volume] in Blood Flako Pinedo Work Phone: Start: 11-06-2020 End: 94-65-7482Okt lower extrem oth/thn jt w/o & w/contr matrFlako Pinedo Work Phone: Start: 50-66-0680Fjxinkg [Mass/volume] in Blood Flako Pinedo Work Phone: Start: 22-40-7905Wttqyki/Creatinine [Ratio] in Urine Flako Pinedo Work Phone: Start: 07-50-8656OtyjvvtzhjLiyuheeo Viral Pinedo Work Phone: Start: 93-19-1364Uqtjzre [Mass/volume] in Blood Flako Pinedo Work Phone: Start: 91-07-9533Texhyun microbial cultureBraeden Conte Work Phone: start: 11-06-2020 End: 46-75-1248R-ray of left footBraeden Conte Work Phone: start: 12-00-4189Lebaynquljqh imaging procedure External TranscribedStart: 09-49-7261Nrfvopyhykvz tomography, limited studies External TranscribedStart: 34-69-8893Mpuppdy [Mass/volume] in BloodFlako Pinedo Work Phone: Start: 37-89-3379Cbghshui blood count with white cell differential, automatedFlako Pinedo Work Phone: Start: 24-07-3536Elwwoyqm blood count with white cell differential, manualFlako Pinedo Work Phone: Start: 83-16-3318Ztdburm [Moles/volume] in Serum or PlasmaFlako Pinedo Work Phone: Start: 53-70-4704Cqgsasyqh [Mass/volume] in Serum or PlasmaFlako Pinedo Work Phone: Start: 96-66-3759Wucel function 2000 panel - Serum or PlasmaFlako Pinedo Work Phone: Start: 19-39-3017Umgxrpveedn [Units/volume] in Serum or Plasma by Detection limit <= 0.005 mIU/LKhalmarina Pinedo Work Phone: Start: 38-86-1186Zcmmd of lactateFlako Pinedo Work Phone: Start: 11-05-2020C>3< complement assayFlako Pinedo Work Phone: Start: 11-05-2020C>4< complement assayFlako Pinedo Work Phone: Start: 23-61-3596Jvogifbb measurementFlako Pinedo Work Phone: Start: 76-76-6812Jamglnr [Moles/volume] in Serum or PlasmaFlako Pinedo Work Phone: Start: 11-05-2020 End: 84-73-0928Zzxheghj identified in Blood by CultureFlako Pinedo Work Phone: Start: 05-63-6791Yqsnonlyrf exam chest single view Flako Pinedo Work Phone: Start: 58-15-5390Ywek hydroxybutyrate [Moles/volume] in Serum or PlasmaFlako Pinedo Work Phone: Start: 11-05-2020C reactive protein [Mass/volume] in Serum or PlasmaFlako Pinedo Work Phone: Start: 41-79-1898Ahukkuga blood count with white cell differential, automatedFlako Pinedo Work Phone: Start: 46-29-0891Gfiseiop blood count with white cell differential, manualFlako Pinedo Work Phone: Start: 81-90-6718Obxuenqaqtyvi metabolic 2000 panel - Serum or PlasmaFlako Pinedo Work Phone: Start: 37-12-7552Qhyymzmt kinase [Enzymatic activity/volume] in Serum or PlasmaFlako Pinedo Work Phone: Start: 47-39-0985Vcksspdggkh sedimentation rate by Westergren methodFlako Pinedo Work Phone: Start: 67-07-3785Xqlhmilvyk A1c/Hemoglobin.total in BloodFlako Pinedo Work Phone: Start: 51-13-1820Gjytkwjzf [Mass/volume] in Serum or PlasmaFlako Pinedo Work Phone: Start: 62-63-6032Bpdmtxyib [Mass/volume] in Serum or PlasmaFlako Pinedo Work Phone: Start: 51-52-4135Dqtythiajltsb [Mass/volume] in Serum or PlasmaFlako Pinedo Work Phone: Start: 33-12-2647Byqdjfrs measurementFlako Pinedo Work Phone: Start: 18-01-8327Egtxuzjcij examination and evaluation Generic [facility] Plan of Treatment DateCare ActivityDetailAuthorStart: 17-77-3105PNjW,Tdap and Td Vaccines (2 - Td or Tdap)DTaP,Tdap and Td Vaccines (2 - Td or Tdap)[facility] SystemStart: 22-57-7672Tryqp microalbumin profileDTaP,Tdap,Td Vaccine (2 - Td or Tdap) [facility]art: 71-07-0933Zzcxc panelLipid ScreeningSouthview Medical Center Start: 54-25-4087Xdyrxzxs ScreeningDiabetes ScreeningCleWyandot Memorial Hospitaltart: 54-63-7783Bhnel BMI ScreeningAdult BMI ScreeningProCommunity [facility] SystemStart: 06-94-9972Wkchshrqja ScreeningDepression ScreeningProCommunity Regional [facility] SystemStart: 67-04-7810Wrlpzdw ScreeningTobacco ScreeningProCommunity Regional Medical Center SystemStart: 29-39-7460Brhdi BMI ScreeningAdult BMI ScreeningLake County Memorial Hospital [facility] Westca Health SystemStart: 42-47-9070Jvcfu BMI ScreeningAdult BMI ScreeningProKeenan Private Hospitalca Health SystemStart: 99-91-8874Lmjeqayboz ScreeningDepression ScreeningLake County Memorial Hospital - Westca [facility] SystemStart: 32-35-6979Huivxv Use: CardiovascularStatin Use: CardiovascularProMedica Health SystemStart: 29-05-0313Dbhxyj Use: DiabeticStatin Use: DiabeticProKeenan Private Hospitalca [facility] SystemStart: 69-25-6835Aqnaasj ScreeningTobacco ScreeningLake County Memorial Hospital - Westca [facility] System Start: 05-48-0822Wjdip BMI ScreeningAdult BMI ScreeningLake County Memorial Hospital - Westca [facility] Start: 17-20-6632Rbfch BMI ScreeningAdult BMI ScreeningLake County Memorial Hospital - Westca [facility] System Start: 09-93-1430Xbaofnvchl ScreeningDepression ScreeningLake County Memorial Hospital - Westca [facility] System Start: 71-42-7364Uzzyzzn ScreeningTobacco ScreeningLake County Memorial Hospital - Westca [facility] SystemStart: 84-46-7657Rjkgz BMI ScreeningAdult BMI ScreeningLake County Memorial Hospital - Westca [facility] SystemStart: 33-02-8213Zfnllhuonc ScreeningDepression ScreeningLake County Memorial Hospital - Westca [facility] SystemStart: 50-93-0492Weboha Use: CardiovascularStatin Use: CardiovascularLake County Memorial Hospital - Westca [facility] SystemStart: 09-30-6154Gnqops Use: DiabeticStatin Use: DiabeticLake County Memorial Hospital - Westca [facility] SystemStart: 49-68-5187Ixvtxgc ScreeningTobacco ScreeningLake County Memorial Hospital - Westca [facility] Start: 21-83-5018Ofhsz BMI ScreeningAdult BMI ScreeningLake County Memorial Hospital - Westca [facility] Start: 86-85-2839Zjtbjhsxsd ScreeningDepression ScreeningLake County Memorial Hospital - Westca [facility] Start: 75-08-0456Shucrzq ScreeningTobacco ScreeningLake County Memorial Hospital - Westca [facility] SystemStart: 34-84-9179Yqykper ScreeningTobacco ScreeningLake County Memorial Hospital - Westca [facility] SystemStart: 66-85-2241Kiwsoki ScreeningTobacco ScreeningLake County Memorial Hospital - Westca [facility] SystemStart: 95-44-8526Ureza BMI ScreeningAdult BMI ScreeningRutland Regional Medical CenterMedica [facility] SystemStart: 12-24-2025 End: 67-28-6857Ugvzprek Ghavbrj7812/24/2025 11:00 AM EST Clinical Support [facility] [address] [facility] [place] [address] Art Freeman, DO [address] [facility], [address], [place] [address] Hayden Arguello MedicineStart: 33-59-4671Tmpdquyj screeningDiabetes: Retinopathy ScreeningPhelps HealthStart: 09-21-2025 End: 23-64-3599Jgpgxetf Lbqjlhq1809/21/2025 8:30 AM EDT Clinical Support [facility] [address] [place] [address] Art Freeman, DO [address] [facility], [facility] [address], [facility] [place] [address] Hayden Arguello MedicineStart: 08-30-2025 End: 58-02-1155Adzcgebc Yvqonwo9408/30/2025 9:30 AM EDT Clinical Support [facility] Medication Management [address] [place] [address] YidSmhbzzMansfield Hospital - Pharmacy Medication ManagementStart: 08-13-2025 End: 29-36-7022Fjtyulxy Stfmplq9908/13/2025 8:00 AM EDT Clinical Support [facility]ication [facility] [address] [place] [address] BjhCcjaacMansfield Hospital - Pharmacy Medication ManagementStart: 08-10-2025 End: 20-93-3156Wwrtbay encounter pgbpesmth09/19/2025 10:00 AM EDT Office Visit [facility] [address] [facility] [address] [place], [place] [address] Art Freeman, DO [address] [facility], [address], [place] [address] Hayden Arguello MedicineStart: 03-83-2165CjcvjvmgqZanesville City Hospital Start: 07-16-2025 End: 76-74-9919Anftyeiy Dgpvvby7907/16/2025 8:00 AM EDT Clinical Support [facility] Medication Management [address] [place] [address] TzvAttuwh [facility] - Pharmacy Medication ManagementStart: 12-62-9681Bomlfldyjd A1c vlxrfkkimmdBkW7V [facility]tart: 07-09-2025 End: 13-67-1940DcmfxovacKindred Hospital Daytontart: 05-22-2025 End: 80-87-6446Ayykcvuys to same day surgery zzdzyn4505/22/2025 2:00 PM EDT [facility] [address] [place] [address] Jerome Del [place]o, [place] [address] 4wk post opGeneral Surgery Comment on above:4wk post opStart: 05-10-2025 End: 93-85-3778Ucmsxgkh Bannhdy9805/10/2025 9:30 AM EDT Clinical Support [facility] [address] [place] [address] Art Freeman, DO [address] [facility], [facility] [address], [address] [place], [place] [id number] [facility] MedicineStart: 05-09-2025 End: 78-85-4371Jhkwagp encounter /18/2025 10:40 AM EDT Office Visit [facility] [address] [facility] [address] Sherri Garcia, TRACK REPAIR SUPERVISOR-DETAIL DRAFTER [address] [place] [address] [facility] ClinicStart: 13-17-4160Hhdhnguji B screeningUrine Albumin:Creatinine RatioLima Memorial Hospitaltart: 66-64-2713Lniqw screening for proteinUrine MicroalbuminProKeenan Private Hospitalca Health SystemStart: 04-26-2025 End: 79-16-7284Tdrfvvm encounter /05/2025 2:00 PM EDT Office Visit [facility] [address] [place], [place] [address] Art Freeman, DO [address] [facility], [address], [address] [place], [place] [id number] [facility] MedicineStart: 04-26-2025 End: 43-52-4095NJ Lumbar spine Views W right bending and W left bendingX-ray spine lumbar complete including flexion and extension 6+ views Imaging Routine Chronic midline low back pain without sciatica Expected: 04/26/2025, Expires: 04/26/2026[facility] Work Phone: Comment on above:Expected: 04/26/2025, Expires: 04/26/2026Start: 04-25-2025 End: 46-77-2846Izxvchn encounter ihjnyyvaq94/04/2025 7:30 AM EDT Appointment [facility] [place] [address] Jerome Del Toro, [place] [address] Diabetic gastroparesis (HCC)[facility] HospitalComment on above:Diabetic gastroparesis (HCC)Start: 04-24-2025 End: 74-77-4023Ohmaerh encounter zobrjctgx28/03/2025 10:30 AM EDT Office Visit [facility] [address] [place] [address] Sherri Garcia, TRACK REPAIR SUPERVISOR-DETAIL DRAFTER [address] [place] [address] [facility] ClinicStart: 04-11-2025 End: 84-68-7983Qzefuwv encounter nkfghnewl29/21/2025 10:40 AM EDT Office Visit [facility] [address] [place] [address] Sherri Garcia, TRACK REPAIR SUPERVISOR-DETAIL DRAFTER [address] [place] [address] [facility] Hospitaltart: 04-10-2025 End: 36-43-5440Wjuxrvi encounter procedureGastroenterologyComment on above:New gp consult/emptiesStart: 01-01-2025Medicare Advantage Annual Wellness Visit Medicare Advantage Annual Wellness VisitLima Memorial Hospitaltart: 65-28-3522Vnast- 19 Vaccine ( season)Covid-19 Vaccine ()[facility]tart: 73-32-9488Xueaouapw vaccinationInfluenza Vaccine (#1)[facility]tart: 34-98-5598Tlrzadykv vaccinationInfluenza Vaccine (#1)[facility] HealthcareComment on above:Postponed from 07/23/2023 (Patient Refused)Start: 77-16-1419NnttsummaKindred Hospital Daytontart: 70-21-3164Xgkjgrlxe for malignant neoplasm of colonColorectal Cancer ScreeningNOUT HealthcareComment on above:Postponed from 1966 (Other Medical Reasons)Start: 01-06-2024 End: 31-27-3939Xsxzctz encounter krhmzapdo86/15/2024 4:30 PM EST Office Visit [facility] [address] [place] [address] Cheng Staples NP [address] [place] [id number] ArrivedNOUT CWM FMComment on above:ArrivedStart: 10-20-2023 Hemoglobin A1c measurementDiabetes: Hemoglobin G0SYGPF HealthcareStart: 69-04-0077Cxrdmqko foot examinationDiabetic Foot ExamSumma Health Akron Campus Start: 80-54-5014Xjjlorkq specific antigen measurementProstate Cancer Screening DiscussionLima Memorial Hospitaltart: 97-25-5469HrB7o (Bld) [Mass fraction]A1C [facility]HealthStart: 03-06-2021 End: 80-78-0328Jxqdku Visit03/06/2021 Office Visit Wound Care Marcella Bell MD [address] [place] [address] [phone] [facility] Wound CareStart: 02-14-2021 End: 48-46-5355Txwrik Visit02/14/2021 Office Visit Wound Care Leanne Cherry DPM [address] [place] [address] [phone] [facility] Wound CareStart: 02-06-2021 End: 99-88-6256Pwxacy Visit02/06/2021 Office Visit Wound Care Marcella Bell MD [address] [place] [address] [phone] [facility] Wound CareStart: 01-24-2021 End: 40-98-8320Cbbgek Visit01/24/2021 Office Visit Wound Care Leanne Cherry DPM [address] [place] [address] [phone] [facility] Wound CareStart: 01-09-2021 End: 17-67-9089Puvpqs VisitWadsworth-Rittman Hospital Wound CareStart: 12-27-2020 End: 55-87-8764Yckrpq Visit12/27/2020 Office Visit Wound Care Leanne Cherry DPM [address] [place] [address] [phone] [facility] Wound CareStart: 12-19-2020 End: 37-07-7972Osacwg Visit12/19/2020 Office Visit Wound Care Marcella Bell MD [address] [place] [address] [phone] [facility] Wound CareStart: 23-77-0870Clucjnxgcb examination and evaluationOphthalmology ExamOhioHealthStart: 61-82-1613Jjciaadbi vaccination givenSequential Influenza Vaccine (#1)[facility]HealthStart: 93-45-4305Gnfvwckufuhbzn of herpes zoster vaccineZoster Vaccines (1 of 2)[facility]HealthStart: 2016 Administration of varicella zoster vaccineZoster (Shingles) Vaccine (1 of 2) [facility] Hospitaltart: 38-92-1451Cdigdmlcemlz Vaccine: 50+ (1 of 1 - PCV) Pneumococcal Vaccine: 50+ (1 of 1 - PCV)[facility]tart: 2016 Screening for malignant neoplasm of colonRiioHealthStart: 18-58-8738Zujayjfl Vaccine (1 of 2)Shingrix Vaccine (1 of 2)[facility] Hospitaltart: 2011 Prostate specific antigen measurementProstate Cancer Screening Discussion [facility]tart: 28-69-1037Pjlgiqmyc for malignant neoplasm of colon [facility] Hospitaltart: 74-18-7126Uxdxhrmzh B Vaccine (1 of 3 - 19+ 3-dose series)Hepatitis B Vaccine (1 of 3 - 19+ 3-dose series)[facility] Hospitaltart: 97-05-7659Uqkdcjmgoqib Vaccine: 50+ (1 of 2 - PCV)Pneumococcal Vaccine: 50+ (1 of 2 - PCV)[facility]tart: 47-19-2180Tljus screening for proteinDiabetes: Urine Protein ScreeningPhelps HealthStart: 01-73-8531Xsplm BMI Follow Up Plan Adult BMI Follow Up PlanECU Health Duplin Hospitaltart: 30-17-7925Tyiypk PCP Team Chronic Disease VisitAnnual PCP Team Chronic Disease VisitLima Memorial Hospitaltart: 21-03-7786Furswmx ScreeningAnxiety ScreeningLima Memorial Hospitaltart: 1984 Depression ScreeningDepression ScreeningLima Memorial Hospitaltart: 1984 Hepatitis B surface antibody levelLDL CholesterolLima Memorial Hospitaltart: 84-15-0713Lyegyuzgq C antibody, confirmatory testHepatitis C ScreeningOhioHealth Start: 65-76-5597Andlhivjy C screeningHepatitis C ScreeningCleSumma Health [facility] Campus Start: 70-55-4325ILN screeningHIV ScreeningLima Memorial Hospitaltart: 1982 COVID-19 Vaccine (1 of 2)COVID-19 Vaccine (1 of 2)[facility]HealthStart: 99-76-8483VRO screeningHIV ScreeningOhioHealthStart: 30-76-9618Lyqhynrpic depression screening assessmentProMercy Health – The Jewish Hospitaltart: 11-18-6343Fcwpdoo DL <= 20 mg/L (U) [Mass/Vol]Urine MicroalbuminOhioHealthStart: 43-27-8011Vhfvzmye foot examination [facility]tart: 67-96-3706Shzsfsdz screeningDilated Retinal ExamLima Memorial Hospitaltart: 74-06-3980Nltwzsslqa examination and evaluationOphthalmology Exam [facility] HospitalStart: 92-76-7611Bpcnmbu and physical examination, annual for health maintenanceCjw Medical Center VisitOhioHealthStart: 64-52-7819Gehxlnmb screeningDiabetic Ophthalmology ExamProMercy Health – The Jewish Hospitaltart: 1966Medicare Annual Wellness (AWV)Medicare Annual Wellness (AWV)[facility] HealthcareStart: 1966 Prostate specific antigen measurementPSA LevelOhioHealthStart: 1966 Screening for malignant neoplasm of colonNOMS HealthcareStart: 17-29-3038Bxokxvq vaccinationTetanus: Every 10yrsOhioHealth End: 59-22-317848 lead ECGECG 12 Lead ECG Routine Once for 1 Occurrences starting 11/05/2020 until 11/05/2020OhioHealthComment on above:Once for 1 Occurrences starting 11/05/2020 until 11/05/2020Aerobic microbial cultureWound Aerobic Culture Microbiology Routine Subacute osteomyelitis of left foot (HCC) Charcot's joint of ankle, unspecified laterality 12/27/2020 12:24 PM EST MaineHealthBacteria identified Aer cx Nom (Bone)[facility] HospitalBacteria identified Anaer cx Nom (Unsp spec)[facility] End: 72-98-4403YZE W Auto Differential panel - BloodCBC auto differential Lab Routine Type 2 diabetes mellitus with foot ulcer, with long-term current use of insulin ([facility]) 1 Occurrences starting 04/26/2025 until 04/26/2026[facility] SystemComment on above:1 Occurrences starting 04/26/2025 until 04/26/2026 End: 15-32-3851Vnufzupvalsyq metabolic 2000 panel - Serum or PlasmaComprehensive metabolic panel Lab Routine Type 2 diabetes mellitus with foot ulcer, with long-term current use of insulin ([facility] Fatty liver disease, nonalcoholic 1 Occurrences starting 04/26/2025until 04/26/2026ProCommunity Regional Medical Center SystemComment on above:1 Occurrences starting 04/26/2025 until 04/26/2026T angiography of head [facility] CenterCT angiography of neck vesselsLakehealth Tripoint Medical Center End: 36-03-6952Slscvwkgcejnir vitamin b-12Vitamin B12 Lab Routine Fatigue, unspecified type 1 Occurrences starting 05/10/2025 until 05/10/2026ProCommunity Regional Medical Center SystemComment on above:1 Occurrences starting 05/10/2025 until 05/10/2026 End: 08-73-7995FZWIVGLDFxduqxyn Procedures Routine Subacute osteomyelitis of left foot (HCC) 1 Occurrences starting 12/19/2020 until 2[facility] Comment on above:1 Occurrences starting 12/19/2020 until 12/19/2021 End: 45-63-5234JUBDSOCJXdodipzn Procedures Routine Subacute osteomyelitis of left foot (HCC) 1 Occurrences starting 01/09/2021 until 2[facility] Comment on above:1 Occurrences starting 01/09/2021 until 01/09/2022 End: 96-92-8332CRCNLUMEVyoxqifj Procedures Routine Foot abscess, left 1 Occurrences starting 02/06/2021 until 2OhioHealthComment on above:1 Occurrences starting 02/06/2021 until 02/06/2022 End: 00-07-0187Dwiiwaonjn A1c/Hemoglobin.total in BloodHemoglobin A1c Lab Routine Type 2 diabetes mellitus with foot ulcer, with long-term current use of insulin ([facility]) 1 Occurrences starting 04/26/2025 until 04/26/2026ProCommunity Regional Medical Center SystemComment on above:1 Occurrences starting 04/26/2025 until 04/26/2026 End: 16-64-3794Aoews panelLipid panel Lab Routine Type 2 diabetes mellitus with foot ulcer, with long-term current use of insulin ([facility]) Hyperlipidemia, unspecified hyperlipidemia type 1 Occurrences starting 07/05/2025 until 07/05/2026[facility] Work Phone: Comment on above:1 Occurrences starting 07/05/2025 until 07/05/2026 End: 83-52-6115Xcpmcsxsg [Mass/volume] in Serum or PlasmaMagnesium Lab Routine Fatigue, unspecified type 1 Occurrences starting 05/10/2025 until 05/10/2026 [facility] SystemComment on above:1 Occurrences starting 05/10/2025 until 05/10/2026Patient EducationSamaritan Hospital Ctr Work Phone: Patient referralSamaritan Hospital Ctr Work Phone: End: 17-82-9638Fnqgaxjxx specific antigen screenProstatic specific antigen screen Lab Routine Encounter for screening for malignant neoplasm of prostate 1 Occurrences starting 05/10/2025 until 05/10/2026[facility] Work Phone: Comment on above:1 Occurrences starting 05/10/2025 until 05/10/2026Radionuclide gastric emptying studyLakehealth Tripoint Medical Center End: 83-87-0501Qweejhvxwqxu, Total and Free, STestosterone, Total and Free, S Lab Routine Fatigue, unspecified type 1 Occurrences starting 05/10/2025 until 05/10/2026[facility] - WestSlickLogin SystemComment on above:1 Occurrences starting 05/10/2025 until 05/10/2026 End: 34-84-2233Edlkzjy D 25 hydroxyVitamin D 25 hydroxy Lab Routine Fatigue, unspecified type 1 Occurrences starting 05/10/2025 until 05/10/2026ProKeenan Private HospitalSlickLogin SystemComment on above:1 Occurrences starting 05/10/2025 until 05/10/2026 Wound Anaerobic CultureWound Anaerobic Culture Microbiology Routine Subacute osteomyelitis of left foot (HCC) Charcot's joint of ankle, unspecified laterality 12/27/2020 12:24 PM ESTOhioHealth End: 31-65-7177D-ray of left footXR Foot Left 3+ Views (Standard) Imaging Routine Subacute osteomyelitis of left foot (HCC) 1 Occurrences starting 01/24/2021 until 01/24/2022hioHealthComment on above:1 Occurrences starting 01/24/2021 until 01/24/2022X-ray of left footXR Foot Left 3+ Views (Standard) Imaging Routine Subacute osteomyelitis of left foot (HCC) 01/24/2021 2:27 PM [facility] Immunizations Immunization DateImmunizationNotesCare SskhgwykGqwyqnmp75-15-6639cetusyf toxoid, reduced diphtheria toxoid, and acellular pertussis vaccine, dieterLisa Staples AVIONICS ELECTRICAL ENGINEER Work Phone: [facility] Healthcare Payers DatePayer CategoryPayerPolicy [id number] (Managed Care)AETNA MEDICARE [id number] 2024Medicare HMO AETNA MEDICARE Member Subscriber Plan / Payer (Effective 2023-Present) Name: More Kingsley Jr. Relation to Subscriber: Self Name: More Kingsley Jr. Payer ID: 1 (NAIC) Type: Not on file Address: [address] [place] [id number] 23-05-9835Orijybv Health [id number] 2.16.840.9.216195.3466-01-2023 [id number] 2.16.840.5.121995.72210358-32-2171HtujtseDZXLFEM HEALTH DEVOTED HEALTH [id number] 2023-Present [address] [place] [address] 1.2.840.138632.1.13.693.2.7.3.967287.315 2021Medicare2019Medicare [id number] [id number] 1.2.840.449345.1.13.385.2.7.3.910[id number] 2.16.840.1.386456.3.57[id number] 2.16.840.1.863512.3.57[id number] 2.16.840.1.140082.3.579.[id number] 2.16.840.1.299132.3.579.2.[id number] 2.16.840.1.266470.3.57[id number] 2.16.840.1.101945.3.57[id number] 2.16.840.1.270777.3.57[id number] 2.16.840.1.857813.3.57[id number] 2.16.840.1.568074.3.579.2.63226-68-9272Egotxhf164723539 2.16.840.1.607185.3.579.2.98486-71-9017Gcolnax478930550 2.16.840.1.340196.3.579.2.85984-24-8899Crrzeyn864461105 2.16.840.1.658534.3.579.2.26374-93-8578Iyatkmy994831081 2.16.840.1.665656.3.57[id number] 2.16.840.1.919375.3.579.[id number] 2..840.1.965827.3.579.2.45709-23-8886Pdsfbzu2064555 2..840.1.244579.3.579.2.84972-83-3829Dpetpzj4752397 2.840.1.454164.3.579.2.510600-50-2023Eqsikeh6855803 2..840.1.171920.3.579.2.313532-87-6785Qmzndxc248053 2..840.1.931940.3.579.2.553646-41-5206Gozemwq760435728 2.840.1.812368.3.579.2.547451-31-9399Sjcfuqj350089372 2..840.1.614979.3.579.2.073981-23-7391Infkixx780939779 2..840.1.839852.3.579.2.599859-45-7697Ovkfein989434458 2.16.840.1.326108.3.579.2.667650-08-7591Ebylhlh666617872 2.16840.1.673114.3.579.2.474564-44-5237Znccebx589380279 2.16.840.1.398649.3.579.2.410837-72-6151Ezplnud313820992 2.0.1.101397.3.579.2.336138-19-4860Twkeqlk472312752 2.840.1.688875.3.579.2.924276-98-3305Odonasd219338376 2.0.1.034409.3.579.2.626008-25-4353Osqjwzl804490567 2.0.1.456944.3.579.2.873161-97-8134Rcvzsbv732219069 2.840.1.477159.3.579.2.064528-16-5598Ksaaapw494577890 2..1.277194.3.579.2.197309-98-7024Xgmajhx168102083 2.0.1.708130.3.579.2.345337-68-3388Ltmcmdz924004649 2..1.349150.3.579.2.879995-31-9039Ohviiom254660815 2.0.1.701200.3.579.2.985874-19-4499Siaibyx908932225 2..1.965039.3.579.2.1286 [id number] 2.0.1.843232.19 [id number] 2.840.1.864310.3.579.2.127Jbpdvdt27789912 2.840.1.992566.3.579.2.420Dksxtmd23531810 2.840.1.989992.3.579.2.531 Social History DateTypeDetailFacilityStart: 12-22-2019 End: 80-06-4325Diptouf smoking status NHISNever smokerNOMS HealthcareStart: 12-22-2019 End: 37-82-0379Llqfzal use and exposureNever usedOhioHealthStart: 11-19-2020 End: 71-76-7203Qkvsbgl intakeCurrent drinker of alcohol (finding)[facility] Start: 79-36-5524Cwmmiep CommentrarelyOhioHealthStart: 36-50-3548Egz Assigned At BirthNot on fileOhioHealthExposure to SARS-CoV-2 (event)Not sureOhioHealth Start: 02-07-2021 End: 52-73-0738Bbq Assigned At BirthR[place] [employer] Other Start: 01-06-2024 End: 52-66-9060Relskag intakeEx-drinker (finding)NOMS HealthcareStart: 02-07-2021 End: 83-49-4322Yjhtsoc of Social functionNOMS HealthcareStart: 75-19-7265Izgoyhl Commentpop-4 cups dailyNOMS HealthcareStart: 80-84-1300Oae Assigned At [facility] Centertart: 39-24-9064Jetsluq smoking status NHISEx-smoker (finding)[facility] CenterT[facility] [place] [facility] [place] smoking status NHISTobacco smoking consumption unknownSouthview Medical CenterNational Score (1-100), lower number is lower wzps40Iyvqrvexx ClinicDo you belong to any clubs or organizations such as yarsanism groups, unions, fraternal [...] time - these days [OSQ]To some extent [facility] Hospitalreal trends SystemStart: 25-84-4429Giporud Commentquit 2005ProKeenan Private HospitalSlickLogin SystemStart: 07-61-6383ExzCwjw (finding)[facility] Hospitalreal trends SystemNEGATED: Highlighted rowStart: NINFHistory of tobacco usePassive smokerSouthview Medical Center Medical Equipment Procedure CodeEquipment CodeEquipment Original TextEquipment IdentifierDates [id number]: 08-03-2021 End: 51-71-7042Dxyl Bn Bio 40gm Rpl [id number] - [id number] Start: 39-39-8450Ggcr Iol Ultrasert 18.5d - [id number] - [id number] Start: Pen Needle by miscellaneous route in the morning and 1 Pen Needle at noon and 1 Pen Needle in theevening and 1 Pen Needle before bedtime. [id number]: 04-26-2025 End: strip by other route 4 (four) times a day before meals and nightly.[id number]: 04-26-2025 End: strip by other route 4 (four) times a day before meals and nightly.[id number]: 05-10-2025 End: strip by other route 4 (four) times a day before meals and nightly.[id number]: 05-16-2025 End: strip by other route 4 (four) times a day before meals and nightly.[id number]: 07-05-2025 End: strip by other route 3 (three) times a day.[id number]: 07-06-2025 Goals DatePatient GoalDesired Activity/StatePersonal health goalComment on above: Evaluation of progress towards goal: [place] [facility] Functional Status TfahUcqnwgepzvSwykkhTglxywxq22-58-9010Frrsx score [AUDIT-C]0 09/21/2025 8:28 AM EDDanielle Obregon CNAProMedica [facility] Clinical Notes 08-25-2022 to 09-21-2025 Note Date & OqaqNtwnVnzkyiih75-49-7513 History of Present illness Narrative* Art Freeman, DO - 09/21/2025 8:30 AM EDT Images from the original note were not included. [facility] [address] [place] [address] [place] [address] Patient: More Kingsley Jr. Date of : [...] 02/2021 left foot Chronic osteomyelitis of foot ([facility]-HCC) 02/2021 left/with draining sinus Dental disease poor repair Diabetes mellitus type 2, controlled ([facility]) 1999 Hyperlipidemia Hypertension PICC (peripherally inserted central catheter) flush 02/2021 Visual impairment glasses Past Surgical History: Procedure Laterality Date AMPUTATION SYMES LOWER EXTREMITY Left 04/18/2021 Performed by Chan Brooke DPM at [facility] SURGERY AMPUTATION TOEMID FOOT OSTEOTOMY ACHILLES TENOTOMY Left 02/07/2021 Performed by Chan Brooke DPM at [facility] ASPIRATION BONE MARROW BIOPSY BONE MARROW (BONE BIOPSY) Left 03/24/2021 Performed by Chan Brooke DPM at [facility] CLOSURE WOUND LOWER EXTREMITY (DELAYED PRIMARY CLOSURE) Left 03/24/2021 Performed by Chan Brooke DPM at [facility] DEBRIDEMENT FOOT/ANKLE Left 02/07/2021 Performed by Chan Brooke DPM at [facility] EXOSTECTOMY FOOT Right 09/01/2021 Performed by Chan Brooke DPM at [facility] PHACO KELMAN I IMPLANT INTRAOCULAR LENS Right 12/28/2019 Performed by Debra Trejo MD at [facility] REMOVAL HARDWARE FOOT/TOE, AND REMOVAL ANTIBIOTIC SPACER Left 03/24/2021 Performed by Chan Brooke DPM at [facility] TONSILLECTOMY as child Family History Problem Relation [...] and 10 to the basement. Worked at [employer]. Now disabled Social Drivers of Health Financial Resource Strain: Low Risk (01/06/2024) Received from [facility] Overall Financial Resource Strain (CARDIA) Difficulty [...] Needs: Unmet Transportation Needs (01/06/2024) Received from [facility] PRAPARE - Transportation Lack of Transportation (Medical): Yes Lack of Transportation (Non-Medical): Yes Physical Activity: Inactive (01/06/2024) Received from [facility] Exercise Vital Sign On average, how many days per week do you engage in moderate to strenuous exercise (like a brisk walk)?: 0 days On average, how many minutes do you engage in exercise at this level?: 0 min Stress: Stress Concern Present (01/06/2024) Received from [facility] Micronesian Twain of Occupational Health - Occupational Stress Questionnaire Feeling of Stress : Very much Social Connections: Socially Isolated (01/06/2024) Received from [facility] Social Connection and Isolation Panel In a typical week, how many times do you talk on the phone with family, friends, or neighbors?: Never How often do you get together with friends or relatives?: Never How often do you attend yarsanism or jainism services?: Never Do you belong to any clubs or organizations such as yarsanism groups, unions, fraternal or athletic groups, or school groups?: Yes How often do you attend meetings of the clubs or organizations you belong to?: Never Are you , , , , never , or living with a partner?: Interpersonal Safety: Unknown (01/13/2024) Received from [facility] Safety & Environment Fear of Current or Ex-Partner: Not on file Emotionally Abused: Not on file Physically Abused: Not on file Sexually Abused: Not on file Physically or Sexually Abused: Not on file Housing Instability: Low Risk (01/06/2024) Received from [facility] Housing Stability Vital Sign Unable to [...] HISTORY: Right foot ulcer, with unspecified severity ([facility] COMPARISON: 03/04/2025 IMPRESSION: Unchanged indication about the [...] long-term current use of insulin ([facility]) - POCT Hemoglobin A1c - insulin glargine [...] to type 2 diabetes mellitus ([facility]) No problem-specific Assessment & Plan notes found [...] DO 09/21/25 2:02 PM documented in this encounterSumma [facility]10-31-2025 Instructions* Patient Instructions* Art Freeman DO - [...] daily for heartburn symptoms documented in this encounterSumma Health Akron Campus10-09-2025 Miscellaneous Notes* Telephone Encounter - Phu Ocasio MA - 08/30/2025 1:02 PM EDT The patient was a no show today. Dermatologist And Dermatopathologist OPAL requesting patient call back to schedule another appointment. documented in this encounterSumma Health Akron Campus10-09-2025 Telephone encounter Note* Telephone Encounter - Phu Ocasio MA - 08/30/2025 1:02 PM EDT The patient was a no show today. Dermatologist And Dermatopathologist OPAL requesting patient call back to schedule another appointment. [facility]10-06-2025 Miscellaneous Notes* Telephone Encounter - Sangeetha Ivory - 08/27/2025 2:12 PM EDT Patient presenting to office requesting refill of amox/k clav 875-125 MG tab to [facility]. Please advise * Telephone Encounter [...] twice daily for 14 days sent into [place], [place] documented in this encounterSumma Health Akron Campus10-06-2025 Telephone encounter Note* Telephone Encounter - Sangeetha Ivory - 08/27/2025 2:12 PM EDT Patient presenting to office requesting refill of amox/k clav 875-125 MG tab to [facility]. Please advise [facility]10-06-2025 Telephone encounter Note* Telephone Encounter - Danielle Masters CNA - 08/27/2025 2:12 PM EDT Spoke with patient, he states he would like a refill for this medication. Spoke with him and he states he is still having symptoms Please advise? [facility]10-06-2025 Telephone encounter Note* Telephone Encounter - Art Freeman DO - 08/27/2025 2:12 PM EDT Prescription for Augmentin 875/125 mg 1 tablet twice daily for 14 days sent into [place], [place] [facility]10-03-2025 Miscellaneous Notes* Telephone Encounter - Ev Marquez CMA - 08/24/2025 10:18 AM EDT Attempted to call patient and inform him on NovoLog in office for him to mixing picker tender in office, no answer, left voicemail. documented in this encounterRutland Regional Medical CenterStandDesk10-03-2025 Telephone encounter Note* Telephone Encounter - Ev Marquez CMA - 08/24/2025 10:18 AM EDT Attempted to call patient and inform him on NovoLog in office for him to mixing picker tender in office, no answer, left voicemail. [facility] HospitalMobile[facility]10-01-20[facility] Radiology [facility] [place] [place] [address] CT Scan Report Signed Patient: More Kingsley MR#: [id number] : 1965 Acct:[id number] Age/Sex: 59 / M ADM Date: 5 Loc: CT Room: Type: [facility] Attending Dr: Cathy Leggett AVIONICS ELECTRICAL ENGINEER-C Copies to: Cathy Leggett APRN~ Ordering Provider: Cathy Leggett APRN Date of Service: 08/22/25 CT/CT angio head: I65.23 - Occlusion and stenosis of bilateral carotid ney... ([id number]) CT/CT angio neck: I65.23 - Occlusion and [...] Kidd M.D. 08/22/2025 5:14 PM Dictation Location: [facility]-- Transcribed By: AMBER 08/22/251713 Dictated By: Blair Kidd II, MD 08/22/251703 Signed By: 08/22/251713 [facility] Work Phone: [phone] Miscellaneous Notes* Telephone Encounter - Ev Marquez CMA - 08/16/2025 11:15 AM EDT Attempted to call patient to inform of package for Lantus medication received in office and ready for him to mixing picker tender documented in this encounterRutland Regional Medical CenterStandDesk09-25-2025 Telephone encounter Note* Telephone Encounter - Ev Marquez CMA - 08/16/2025 11:15 AM EDT Attempted to call patient to inform of package for Lantus medication received in office and ready for him to mixing picker tender [facility]09-22-2025 History of Present illness Narrative* Roxy Lenz, [facility] - 08/13/2025 8:00 AM EDT [facility] - PHARMACY MEDICATION MANAGEMENT [address] [facility] [address] Subjective SUBJECTIVE: Referring Provider: Art Freeman DO [...] and Novolog. [facility]. To [...] Blood Glucose Device Brand: Accu-check Diabetic Supplier: [employer] [facility] [place] [employer] Date FBG AC PPG 08/13 237 [...] B12 Level: Lab Results Component Value Date [id number] 1,009 (H) 05/16/2025 Lipid Management: Lab Results [...] for instruction with dosing Patient stated to [facility] that he did not need to do this as his glucose is well controlled when he hasthese insulins. Explained his A1C has not been controlled in some time and to please notify PPMM sowe can safely adjust his dosing. Patient non-committal to this. Refills needed on pertinent current medications/supplies: No Patient Assistance, Coding Coordinator Coupon, or Prior Authorization: Yes PAP singed for Farxiga today PAP with Sonofi (Lantus) approved 2024 PAP with Alejandra Nordisk (Novolog) approved 2024 Ozempic PAP started today Patient will need to mixing picker tender medication from providers office MONITORING: CGM: N/A Glucometer Testing: Twice daily (fasting and alternating post-prandial and before meals) FOLLOW UP: Next PCP visit: 09/21/2025 Next Pharmacist visit: 08/30/25 Signature: Roxy Lenz PharmD, [facility] 30 minute smkf-qq-spxx follow-up appointment. Roxy Lenz RPH 08/13/25 1208 documented in this encounterSumma Health Akron Campus09-19-2025 History of Present illness Narrative* Art Freeman, DO - 08/10/2025 10:00 AM EDT Images from the original note were not included. [facility] [address] [place] [address] [place] [address] Patient: More Kingsley Jr. Date of : [...] 02/2021 left foot Chronic osteomyelitis of foot ([facility]-H[facility]) 02/2021 left/with draining sinus Dental disease poor repair Diabetes mellitus type 2, controlled ([facility]) 1999 Hyperlipidemia Hypertension PICC (peripherally inserted central catheter) flush 02/2021 Visual impairment glasses Past Surgical History: Procedure Laterality Date AMPUTATION SYMES LOWER EXTREMITY Left 04/18/2021 Performed by Chan Brooke DPM at [facility] AMPUTATION TOEMID FOOT OSTEOTOMY ACHILLES TENOTOMY Left 02/07/2021 Performed by Chan Brooke DPM at [facility] ASPIRATION BONE MARROW BIOPSY BONE MARROW (BONE BIOPSY) Left 03/24/2021 Performed by Chan Brooke DPM at [facility] CLOSURE WOUND LOWER EXTREMITY (DELAYED PRIMARY CLOSURE) Left 03/24/2021 Performed by Chan Brooke DPM at [facility] DEBRIDEMENT FOOT/ANKLE Left 02/07/2021 Performed by Chan Brooke DPM at [facility] EXOSTECTOMY FOOT Right 09/01/2021 Performed by Chan Brooke DPM at [facility] PHACO KELMAN I IMPLANT INTRAOCULAR LENS Right 12/28/2019 Performed by Debra Trejo MD at [facility] REMOVAL HARDWARE FOOT/TOE, AND REMOVAL ANTIBIOTIC SPACER Left 03/24/2021 Performed by Chan Brooke DPM at [facility] TONSILLECTOMY as child Family History Problem Relation [...] and 10 to the basement. Worked at [employer]. Now disabled Social Drivers of Health Financial Resource Strain: Low Risk (01/06/2024) Received from [facility] Overall Financial Resource Strain (CARDIA) Difficulty of Paying Living Expenses: Not hard at all Food Insecurity: Food Insecurity Present (08/10/2025) Hunger Screening Food Insecurity - Worry: Sometimes True Food Insecurity - Inability: Sometimes True Transportation Needs: Unmet Transportation Needs (01/06/2024) Received from [facility] PRAPARE - Transportation Lack of Transportation (Medical): Yes Lack of Transportation (Non-Medical): Yes Physical Activity: Inactive (01/06/2024) Received from [facility] Exercise Vital Sign Days of Exercise per Week: 0 days Minutes of Exercise per Session: 0 min Stress: Stress Concern Present (01/06/2024) Received from [facility] Micronesian Twain of Occupational Health - Occupational Stress Questionnaire Feeling of Stress : Very much Social Connections: Socially Isolated (01/06/2024) Received from [facility] Social Connection and Isolation Panel [NHANES] Frequency of Communication with Friends and Family: Never Frequency of Social Gatherings with Friends and Family: Never Attends Adventism Services: Never Active Member of Clubs or Organizations: Yes Attends Club or Organization Meetings: Never Marital Status: Interpersonal Safety: Unknown (01/13/2024) [facility] Safety & Environment Fear of Current or Ex-Partner: Not on file Emotionally Abused: Not on file Physically Abused: Not on file Sexually Abused: Not on file Physically or Sexually Abused: Not on file Housing Instability: Low Risk (01/06/2024) Received from [facility] Housing Stability Vital Sign Unable to [...] HISTORY: Right foot ulcer, with unspecified severity ([facility]). COMPARISON: 03/04/2025 IMPRESSION: Unchanged indication [...] long-term current use of insulin ([facility]) - lisinopriL (PRINIVIL,ZESTRIL) 10 mg tablet; Take 1 tablet (10 mg total) by mouth in the morning for 360 days. Dispense: 90 tablet; Refill: 3 - insulin NPH (HumuLIN N,NovoLIN N) 100 unit/mL injection; 38 units in the morning and 40 units at nighttime Dispense: 10 mL; Refill: 3 5. Mixed hyperlipidemia due to type 2 diabetes mellitus ([facility]) - atorvastatin (LIPITOR) 80 mg tablet; Take 1 tablet (80 mg total) by mouth daily with breakfast for 360 days Indications: excessive fat in the blood. Dispense: 90 tablet; Refill: 3 - niacin (NIASPAN) 500 mg CR tablet; Take 1 tablet (500 mg total) by mouth nightly. Dispense: 90 tablet; Refill: 1 6. Ulcer of right foot with fat layer exposed ([facility]) - amoxicillin-pot clavulanate (AUGMENTIN) 875-125 mg per tablet; Take 1 tablet by mouth in the morning and 1 tablet before bedtime. Do all this for 14 days. Dispense: 28 tablet; Refill: 0 7. Type 2 diabetes mellitus with other circulatory complication, with long-term current use of insulin ([facility]) - semaglutide (OZEMPIC) 0.25 mg or 0.5 [...] DO 08/10/25 1:49 PM documented in this encounterSumma Health [facility] Campus09-19-2025 Instructions* Patient Instructions* Art Freeman DO - 08/10/2025 10:00 AM EDT Increased atorvastatin to 80 mg daily and start on niacin 500 mg 1 tablet nightly for HDL improvement. Take Niacin with aspirin 81 mg daily to help with flushing. Increase Novolin N to 38 units in the morning and 40 units in the evening documented in this encounterSumma Health Akron Campus08-26-2025 Miscellaneous Notes* Telephone Encounter - Olamide Luna - 07/17/2025 11:58 AM EDT Alejandra Nordisk Patient assistance application faxed to Dr. Art Freeman's office at [phone] forprovider signature. To follow up call [phone]. [employer] Patient assistance application faxed to Dr. Art Freeman's office at [phone] for provider signature. To follow up call [phone]. documented in this [facility]08-26-2025 Telephone encounter Note* Telephone Encounter - Olamide Luna - 07/17/2025 11:58 AM EDT Alejandra Nordisk Patient assistance application faxed to Dr. Art Freeman's office at [phone] forprovider signature. To follow up call [phone]. Peter Blueberry Patient assistance application faxed to Dr. Art Freeman's office at [phone] for provider signature. To follow up call [phone]. [facility]08-26-2025 Miscellaneous Notes* Telephone Encounter - Danielle Masters [...] To: Art Freeman DO documented in this encounterSumma Health Akron Campus08-26-2025 Telephone encounter Note* Telephone Encounter - Danielle [...] 3:26 PM EDT To: Art Freeman DO [facility]08-25-2025 History of Present illness Narrative* Lele Frye, [facility] - 07/16/2025 8:00 AM EDT Images from the original note were not included. [facility] - PHARMACY MEDICATION MANAGEMENT [address] [facility] [address] Subjective SUBJECTIVE: Referring Provider: Art Freeman DO [...] assistance for his insulins. Applications for both Peter Blueberry and Alejandra NordNational Medical Solutions completed today for Lantus, Novolog, and if [...] and will report any side effects to [facility] immediately. Will also need to follow up [...] Blood Glucose Device Brand: Accu-check Diabetic Supplier: [employer] [place] [employer] BG in the mid to high [...] B12 Level: Lab Results Component Value Date [id number] 1,009 (H) 05/16/2025 Lipid Management: Lab Results [...] on pertinent current medications/supplies: No Patient Assistance, Coding Coordinator Coupon, or Prior Authorization: Yes PAP with Sonofi (Lantus) PAP with Alejandra Nordisk (Novolog) Patient will need to mixing picker tender medication from providers office MONITORING: CGM: N/A Glucometer Testing: Twice daily (fasting and alternating post-prandial and before meals) FOLLOW UP: Next PCP visit: 08/10/2025 Next Pharmacist visit: 1 month Signature: LELE FRYE RPH 60 minute etci-wm-woiu initial appointment. Lele Frye RPH 07/16/25 1336 documented in this encounterSumma Health Akron Campus08-15-2025 Evaluation + Plan note* Assessment & Plan Note - Art Freeman DO - 07/06/2025 2:46 PM EDT Associated Problem(s): Peripheral artery disease Patient with moderate to severe peripheral artery disease based on studies from hospitalization earlier in June. Patient scheduled to have vascular procedure on 07/09. Improvement in vascular function will help with diabetic foot ulcer heal [facility]08-15-2025 Miscellaneous Notes* Assessment & Plan Note - Art Freeman DO - 07/06/2025 2:46 PM EDTAssociated [...] 2:42 PM EDT Associated Problem(s): Diabetes mellitus ([facility] Patient diabetes is uncontrolled. Due to financial restrictions, he is unable to afford insulin which he uses to control blood sugar. Patient's last hemoglobin A1c from April 2025 was 11.5%. Discussed with patient the importance of blood sugar control. Since patient having difficulty affording the cost of medications we will refer patient to the [facility] medical management team fordiabetes to aid with patient assistance and management of blood sugars for tighter control.. documented in this encounterSumma Health Akron Campus08-15-2025 Evaluation + Plan note* Assessment & Plan Note - Art Freeman DO - 07/06/2025 2:42 PM EDT Associated Problem(s): Diabetes mellitus ([facility] Patient diabetes is uncontrolled. Due to financial restrictions, he is unable to afford insulin which he uses to control blood sugar. Patient's last hemoglobin A1c from April 2025 was 11.5%. Discussed with patient the importance of blood sugar control. Since patient having difficulty affording the cost of medications we will refer patient to the [facility] medical management team fordiabetes to aid with patient assistance and management of blood sugars for tighter control.. [facility]08-14-2025 Miscellaneous Notes* Telephone Encounter - Jennie Celaya - 07/05/2025 11:10 AM EDT [facility] [place] [phone] New referral received by [facility] for diabetes. Patient was contacted to schedule appointment at [facility] [place] ([facility]). This was my first attempt to [...] called and scheduled an appointment 07/16/25 at [facility]. documented in this encounterSumma Health Akron Campus08-14-2025 Telephone encounter Note* Telephone Encounter - Jennie Celaya - 07/05/2025 11:10 AM EDT [facility] [address] [id number] New referral received by [facility] for diabetes. Patient was contacted to schedule appointment at [facility] [place] ([facility]). This was my first attempt to reach the patient and a message was left on their voicemail requesting a call back. [facility] Additional Info: Medication List. Referring provider: Art Freeman DO Patient with poorly controlled diabetes in part due to issues with affording the cost of insulin. Use is sporadic. ALos had chronic nonhealing diabetic wound on foot. Office does not have samples to provide [facility]08-14-2025 Telephone encounter Note* Telephone Encounter - Phu Ocasio MA - 07/05/2025 11:10 AM EDT Patient called and scheduled an appointment 07/16/25 at [facility]. ami[facility]08-14-2025 History of Present illness Narrative* Art Freeman, - 07/05/2025 9:30 AM EDT Images from the original note were not included. [facility] [address] [place] [address] [place] [address] Patient: More Kingsley Jr. Date of : [...] until June 22, 2025 at [facility] for diabetic infection of the right [...] 02/2021 left foot Chronic osteomyelitis of foot ([facility]) 02/2021 left/with draining sinus Dental disease poor repair Diabetes mellitus type 2, controlled ([facility] 1999 Hyperlipidemia Hypertension PICC (peripherally inserted central catheter) flush 02/2021 Visual impairment glasses Past Surgical History: Procedure Laterality Date AMPUTATION SYMES LOWER EXTREMITY Left 04/18/2021 Performed by Chan Brooke DPM at [facility] AMPUTATION TOEMID FOOT OSTEOTOMY ACHILLES TENOTOMY Left 02/07/2021 Performed by Chan Brooke DPM at [facility] ASPIRATION BONE MARROW BIOPSY BONE MARROW (BONE BIOPSY) Left 03/24/2021 Performed by Chan Brooke DPM at [facility] CLOSURE WOUND LOWER EXTREMITY (DELAYED PRIMARY CLOSURE) Left 03/24/2021 Performed by Chan Brooke DPM at [facility] DEBRIDEMENT FOOT/ANKLE Left 02/07/2021 Performed by Chan Brooke DPM at [facility] EXOSTECTOMY FOOT Right 09/01/2021 Performed by Chan Brooke DPM at [facility] PHACO KELMAN I IMPLANT INTRAOCULAR LENS Right 12/28/2019 Performed by Debra Trejo MD at [facility] REMOVAL HARDWARE FOOT/TOE, AND REMOVAL ANTIBIOTIC SPACER Left 03/24/2021 Performed by Chan Brooke DPM at [facility] TONSILLECTOMY as child Family History [...] and 10 to the basement. Worked at [employer]. Now disabled Social Drivers of Health Financial Resource Strain: Low Risk (01/06/2024) Received from [facility] Overall Financial Resource Strain (CARDIA) Difficulty of Paying Living Expenses: Not hard at all Food Insecurity: No Food Insecurity (07/05/2025) Hunger Screening Food Insecurity - Worry: Never True Food Insecurity - Inability: Never True Transportation Needs: Unmet Transportation Needs (01/06/2024) Received from [facility] PRAPARE - Transportation Lack of Transportation (Medical): Yes Lack of Transportation (Non-Medical): Yes Physical Activity: Inactive (01/06/2024) Received from [facility] Exercise Vital Sign Days of Exercise per Week: 0 days Minutes of Exercise per Session: 0 min Stress: Stress Concern Present (01/06/2024) Received from [facility] [employer] Health - Occupational Stress Questionnaire Feeling of Stress : Very much Social Connections: Socially Isolated (01/06/2024) Received from [facility] Social Connection and Isolation Panel [NHANES] Frequency of Communication with Friends and Family: Never Frequency of Social Gatherings with Friends and Family: Never Attends Adventism Services: Never Active Member of Clubs or Organizations: Yes Attends Club or Organization Meetings: Never Marital Status: Interpersonal Safety: Unknown (01/13/2024) Received from [facility] Safety & Environment Fear of Current or Ex-Partner: Not on file Emotionally Abused: Not on file Physically Abused: Not on file Sexually Abused: Not on file Physically or Sexually Abused: Not on file Housing Instability: Low Risk (01/06/2024) Received from [facility] Housing Stability Vital Sign Unable to [...] HISTORY: Right foot ulcer, with unspecified severity ([facility] COMPARISON: 03/04/2025 IMPRESSION: Unchanged indication about the [...] long-term current use of insulin ([facility]) - Lipid panel; Future - [facility] ([place] - [place], [place]; Future 2. Ulcer of right foot with fat layer exposed ([facility]) - collagenase (SantyL) ointment; Apply 1 Application [...] 2 5. Peripheral artery disease Diabetes mellitus ([facility]) Patient diabetes is uncontrolled. Due to financial restrictions, he is unable to afford insulin which he uses to control blood sugar. Patient's last hemoglobin A1c from April 2025 was 11.5%. Discussed with patient the importance of blood sugar control. Since patient having difficulty affording the cost of medications we will refer patient to the [facility] medical management team fordiabetes to [...] DO 07/06/25 2:46 PM documented in this encounterSumma Health Akron Campus08-07-2025 Evaluation note* Diagnosis Onset Date Resolution Status Admit Date Diabetic ulcer of right foot acuteAugust 2024 9:55amOcclusion and stenosis of bilateral carotid arteries acuteAugust 2024 9:55amPAD (peripheral artery disease)acuteAugust 2024 9:55am [facility] Work Phone: 1(102) 213-828307-01-2025 Miscellaneous Notes* Telephone Encounter - Danielle Masters [...] manage his blood sugars. documented in this encounterSumma Health Akron Campus07-01-2025 Telephone encounter Note* Telephone Encounter - Danielle Masetrs CNA - 05/22/2025 2:40 PM EDT ----- [...] User Sent: 05/16/2025 1:51 PM EDT To: rAt Freeman DO [facility]07-01-2025 Telephone encounter Note* Telephone Encounter - Danielle Masters CNA - 05/22/2025 2:40 PM EDT Spoke with patient, he verbalized understanding. Patient declined the referral to endocrinology, just states he needs his meds [facility]07-01-2025 Telephone encounter Note* Telephone Encounter - Art Freeman DO - 05/22/2025 2:40 PM EDT Attempted to call patient did not answer I did not leave a message. I wanted to make sure from his last visit that he was able to get his insulins to manage his blood sugars. [facility]06-22-2025 Miscellaneous Notes* Telephone Encounter - Art Freeman DO - 05/13/2025 3:07 PM EDT CHANGE TO ACCUCHECK documented in this encounterSumma Health Akron Campus06-22-2025 Telephone encounter Note* Telephone Encounter - Art Freeman DO - 05/13/2025 3:07 PM EDT CHANGE TO ACCUCHECK [facility]06-19-2025 Evaluation + Plan note* Assessment & Plan Note - Art Freeman DO - 05/10/2025 12:59 PM EDTAssociated Problem(s): Benign essential HTN Hypertension is stable. Continue with hydrochlorothiazide 12.5 mg daily and lisinopril 10 mg daily. [facility]06-19-2025 Miscellaneous Notes* Assessment & Plan Note - Art Freeman DO - 05/10/2025 12:59 PM EDTAssociated Problem(s): Benign essential HTN Hypertension is stable. Continue with hydrochlorothiazide 12.5 mg daily and lisinopril 10 mg daily. * Assessment & Plan Note - Art Freeman DO - 05/10/2025 12:58 PM EDT Associated Problem(s): Diabetes mellitus ([facility]) Hemoglobin A1c from May 02, 2025 was [...] mg 1 tablet daily. documented in this encounterSumma Health Akron Campus06-19-2025 Evaluation + Plan note* Assessment & Plan Note - Art Freeman DO - 05/10/2025 12:58 PM EDT Associated Problem(s): Diabetes mellitus ([facility]) Hemoglobin A1c from May 02, 2025 was 11.5%. Patient was unable to afford insulin prescriptions at last visit. Prescribed Lantus Solostar insulin pens 30 units twice daily and NovoLog flex pen sliding scale 3 times daily with meals. [facility]06-19-2025 Evaluation + Plan note* Assessment & Plan Note - Art Freeman DO - 05/10/2025 12:57 PM EDTAssociated Problem(s): Chronic midline low back pain without sciatica Reviewed 6 view lumbar x-rays from May 02, 2025. Prescribed celecoxib 100 mg 1 tablet daily. [facility]06-19-2025 History of Present illness Narrative* Art Freeman DO - 05/10/2025 9:30 AM EDT Images from the original note were not included. [facility] [address] [facility] [place] [address] Patient: More Kingsley Jr. Date of : [...] 02/2021 left foot Chronic osteomyelitis of foot ([facility]) 02/2021 left/with draining sinus Dental disease poor repair Diabetes mellitus type 2, controlled ([facility]) 1999 Hyperlipidemia Hypertension PICC (peripherally inserted central catheter) flush 02/2021 Visual impairment glasses Past Surgical History: Procedure Laterality Date AMPUTATION SYMES LOWER EXTREMITY Left 04/18/2021 Performed by Chan Brooke DPM at [facility] AMPUTATION TOEMID FOOT OSTEOTOMY ACHILLES TENOTOMY Left 02/07/2021 Performed by Chan Brooke DPM at [facility] ASPIRATION BONE MARROW BIOPSY BONE MARROW (BONE BIOPSY) Left 03/24/2021 Performed by Chan Brooke DPM at [facility] CLOSURE WOUND LOWER EXTREMITY (DELAYED PRIMARY CLOSURE) Left 03/24/2021 Performed by Chan Brooke DPM at [facility] DEBRIDEMENT FOOT/ANKLE Left 02/07/2021 Performed by Chan Brooke DPM at [facility] EXOSTECTOMY FOOT Right 09/01/2021 Performed by Chan Brooke DPM at [facility] PHACO KELMAN I IMPLANT INTRAOCULAR LENS Right 12/28/2019 Performed by Debra Trejo MD at [facility] REMOVAL HARDWARE FOOT/TOE, AND REMOVAL ANTIBIOTIC SPACER Left 03/24/2021 Performed by Chan Brooke DPM at [facility] TONSILLECTOMY as child Family History [...] and 10 to the basement. Worked at [employer]. Now disabled Social Drivers of Health Financial Resource Strain: Low Risk (01/06/2024) Received from [facility] Overall Financial Resource Strain (CARDIA) Difficulty of Paying Living Expenses: Not hard at all Food Insecurity: No Food Insecurity (05/10/2025) Hunger Screening Food Insecurity - Worry: Never True Food Insecurity - Inability: Never True Transportation Needs: Unmet Transportation Needs (01/06/2024) Received from [facility] - Transportation Lack of Transportation (Medical): Yes Lack of Transportation (Non-Medical): Yes Physical Activity: Inactive (01/06/2024) Received from [facility] Exercise Vital Sign Days of Exercise per Week: 0 days Minutes of Exercise per Session: 0 min Stress: Stress Concern Present (01/06/2024) Received from [facility] [employer] - Occupational Stress Questionnaire Feeling of Stress : Very much Social Connections: Socially Isolated (01/06/2024) Received from [facility] Social Connection and Isolation Panel [NHANES] Frequency of Communication with Friends and Family: Never Frequency of Social Gatherings with Friends and Family: Never Attends Adventism Services: Never Active Member of Clubs or Organizations: Yes Attends Club or Organization Meetings: Never Marital Status: Interpersonal Safety: Unknown (01/13/2024) Received from [facility] Safety & Environment Fear of Current or Ex-Partner: Not on file Emotionally Abused: Not on file Physically Abused: Not on file Sexually Abused: Not on file Physically or Sexually Abused: Not on file Housing Instability: Low Risk (01/06/2024) Received from [facility] Housing Stability Vital Sign Unable to [...] long-term current use of insulin ([facility]) - lisinopriL (PRINIVIL,ZESTRIL) 10 mg tablet; Take [...] 100 mg 1 tablet daily. Diabetes mellitus ([facility]) Hemoglobin A1c from May 02, 2025 was [...] DO 05/10/25 12:59 PM documented in this encounterSumma Health [facility]ron Campus06-19-2025 Instructions* Patient Instructions* Art Freeman DO - [...] and exercises as given documented in this encounterSumma Health Akron Campus06-06-2025 Evaluation + Plan note* Assessment & Plan Note - Art Freeman DO - 04/27/2025 9:18 PM EDT Associated Problem(s): Chronic midline low back pain without sciatica Ordered x-rays of lumbar spine 6 views including flexion and extension views. [facility]06-06-2025 Miscellaneous Notes* Assessment & Plan Note - Art Freeman DO - 04/27/2025 9:18 PM EDTAssociated Problem(s): Chronic midline low back pain without sciatica Ordered x-rays of lumbar spine 6 views including flexion and extension views. * Assessment & Plan Note - Art Freeman DO - 04/27/2025 9:16 PM EDT Associated Problem(s): Diabetes mellitus ([facility]) Last hemoglobin A1c from April 01, 2025 [...] level of transaminase elevation documented in this encounterSumma Health [facility]ron Campus06-06-2025 Evaluation + Plan note* Assessment & Plan Note - Art Freeman DO - 04/27/2025 9:16 PM EDT Associated Problem(s): Diabetes mellitus ([facility]) Last hemoglobin A1c from April 01, 2025 was 11%. Continue with insulin glargine 30 units nightly, insulin lispro sliding scale coverage before meals. Monitor blood sugars before meals. [facility]06-06-2025 Evaluation + Plan note* Assessment & Plan Note - Art Freeman DO - 04/27/2025 9:14 PM EDTAssociated Problem(s): Benign essential HTN Blood pressure today in normal range. Patient denies any symptoms. Continue with hydrochlorothiazide 12.5 mg daily, lisinopril 10 mg daily. [facility]06-06-[facility]25 Evaluation + Plan note* Assessment & Plan Note - Art Freeman DO - 04/27/2025 9:13 PM EDTAssociated Problem(s): Fatty liver disease, nonalcoholic Ordered lab work including comprehensive metabolic panel to evaluate for level of transaminase elevation [facility]06-05-20[facility] History of Present illness Narrative* Art Freeman DO - 04/26/2025 2:00 PM EDT Images from the original note were not included. [facility] [address] [place] [address] Patient: More Kingsley Jr. Date of : [...] 02/2021 left foot Chronic osteomyelitis of foot ([facility]) 02/2021 left/with draining sinus Dental disease poor repair Diabetes mellitus type 2, controlled ([facility] 1999 Hyperlipidemia Hypertension PICC (peripherally inserted central catheter) flush 02/2021 Visual impairment glasses Past Surgical History: Procedure Laterality Date AMPUTATION SYMES LOWER EXTREMITY Left 04/18/2021 Performed by Chan Brooke DPM at [facility] AMPUTATION TOEMID FOOT OSTEOTOMY ACHILLES TENOTOMY Left 02/07/2021 Performed by Chan Brooke DPM at [facility] ASPIRATION BONE MARROW BIOPSY BONE MARROW (BONE BIOPSY) Left 03/24/2021 Performed by Chan Brooke DPM at [facility] CLOSURE WOUND LOWER EXTREMITY (DELAYED PRIMARY CLOSURE) Left 03/24/2021 Performed by Chan Brooke DPM at [facility] DEBRIDEMENT FOOT/ANKLE Left 02/07/2021 Performed by Chan Brooke DPM at [facility] EXOSTECTOMY FOOT Right 09/01/2021 Performed by Chan Brooke DPM at [facility] PHACO KELMAN I IMPLANT INTRAOCULAR LENS Right 12/28/2019 Performed by Debra Trejo MD at [facility] REMOVAL HARDWARE FOOT/TOE, AND REMOVAL ANTIBIOTIC SPACER Left 03/24/2021 Performed by Chan Brooke DPM at [facility] TONSILLECTOMY as child Family History [...] and 10 to the basement. Worked at [employer]. Now disabled Social Drivers of Health Financial Resource Strain: Low Risk (01/06/2024) Received from [facility] Overall Financial Resource Strain (CARDIA) Difficulty of Paying Living Expenses: Not hard at all Food Insecurity: No Food Insecurity (04/26/2025) Hunger Screening Food Insecurity - Worry: Never True Food Insecurity - Inability: Never True Transportation Needs: Unmet Transportation Needs (01/06/2024) Received from [facility] - Transportation Lack of Transportation (Medical): Yes Lack of Transportation (Non-Medical): Yes Physical Activity: Inactive (01/06/2024) Received from [facility] Exercise Vital Sign Days of Exercise per Week: 0 days Minutes of Exercise per Session: 0 min Stress: Stress Concern Present (01/06/2024) Received from [facility] [employer] - Occupational Stress Questionnaire Feeling of Stress : Very much Social Connections: Socially Isolated (01/06/2024) Received from [facility] Social Connection and Isolation Panel [NHANES] Frequency of Communication with Friends and Family: Never Frequency of Social Gatherings with Friends and Family: Never Attends Adventism Services: Never Active Member of Clubs or Organizations: Yes Attends Club or Organization Meetings: Never Marital Status: Interpersonal Safety: Unknown (01/13/2024) Received from [facility] Environment Fear of Current or Ex-Partner: Not on file Emotionally Abused: Not on file Physically Abused: Not on file Sexually Abused: Not on file Physically or Sexually Abused: Not on file Housing Instability: Low Risk (01/06/2024) Received from [facility] Housing Stability Vital Sign Unable to [...] long-term current use of insulin ([facility]) - TRUE METRIX GLUCOSE TEST STRIP strip; [...] daily, lisinopril 10 mg daily. Diabetes mellitus ([facility]) Last hemoglobin A1c from April 01, 2025 [...] DO 04/27/25 9:18 PM documented in this encounterSumma Health [facility] Campus06-05-2025 Instructions* Patient Instructions* Art Freeman DO - 04/26/2025 2:00 PM EDT Get blood work and x-ray of lumbar spine completed before next visit. Follow instructions for medications. Check blood sugars up to 4 times per day and use short acting insulin as directed. Take Lantus 30 units daily documented in this encounterSumma Health [facility]ron Campus06-03-2025 History of Present illness Narrative* Sherri Garcia, TRACK REPAIR SUPERVISOR-DETAIL DRAFTER - 04/24/2025 10:30 AM EDTAssociated Order(s): Debridement [...] a 59 y.o. male who present to [facility] for evaluation of 1 ulcer(s) on theright plantar midfoot. Patient established with wound clinic 03/28/2025. Current wound care includes: Vashe soak, cover with Xeroform, secure with roll gauze. Patient is wearing a right tennis shoe, Patient presents with a prosthetic of the left foot. 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 Eric Stephenson, [facility]. Patient was seen in the emergency room [...] notes. Patient Active Problem List Diagnosis Sepsis ([facility]) Diabetic ulcer of right midfoot associated with type 2 diabetes mellitus, with muscle involvement without evidence of necrosis ([facility]) Chronic osteomyelitis of left foot with draining sinus ([facility]) Wound, open, foot with complication, left, initial encounter Charcot's joint of foot, left Diabetes mellitus ([facility]) Hyperlipidemia Osteomyelitis of left foot ([facility] Ulcer of right foot with fat layer exposed ([facility]) History of transmetatarsal amputation of right foot ([facility]) 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 ([facility]) Unstable ankle, right Past Medical History: Diagnosis Date Acid reflux Anemia Arthritis Cataract right lens implant Charcot's joint 02/2021 left foot Chronic osteomyelitis of foot ([facility]) 02/2021 left/with draining sinus Dental disease poor repair Diabetes mellitus type 2, controlled ([facility] 1999 Hyperlipidemia Hypertension PICC (peripherally inserted central catheter) flush 02/2021 Visual impairment glasses Past Surgical History: Procedure Laterality Date AMPUTATION SYMES LOWER EXTREMITY Left 04/18/2021 Performed by Chan Brooke DPM at [facility] AMPUTATION TOEMID FOOT OSTEOTOMY ACHILLES TENOTOMY Left 02/07/2021 Performed by Chan Brooke DPM at [facility] ASPIRATION BONE MARROW BIOPSY BONE MARROW (BONE BIOPSY) Left 03/24/2021 Performed by Chan Brooke DPM at [facility] CLOSURE WOUND LOWER EXTREMITY (DELAYED PRIMARY CLOSURE) Left 03/24/2021 Performed by Chan Brooke DPM at [facility] DEBRIDEMENT FOOT/ANKLE Left 02/07/2021 Performed by Chan Brooke DPM at [facility] EXOSTECTOMY FOOT Right 09/01/2021 Performed by Chan Brooke DPM at [facility] PHACO KELMAN I IMPLANT INTRAOCULAR LENS Right 12/28/2019 Performed by Debra Trejo MD at [facility] REMOVAL HARDWARE FOOT/TOE, AND REMOVAL ANTIBIOTIC SPACER Left 03/24/2021 Performed by Chan Brooke DPM at [facility] TONSILLECTOMY as child Social Drivers of Health Food Insecurity: No Food Insecurity (03/04/2025) Hunger Screening Food Insecurity - Worry: Never True Food Insecurity - Inability: Never True Housing Instability: Low Risk (01/06/2024) Received from [facility] Housing Stability Vital Sign Unable to Pay for Housing in the Last Year: No Number of Places Lived in the Last Year: 1 Unstable Housing in the Last Year: No Transportation Needs: Unmet Transportation Needs (01/06/2024) Received from [facility] PRAPARE - Transportation Lack of Transportation (Medical): Yes Lack of Transportation (Non-Medical): Yes Utility Difficulties: Not on file Interpersonal Safety: Unknown (01/13/2024) Received from [facility] [place] Safety & Environment Fear of Current or Ex-Partner: Not on file Emotionally Abused: Not on file Physically Abused: Not on file Sexually Abused: Not on file Physically or Sexually Abused: Not on file Financial Resource Strain: Low Risk (01/06/2024) Received from [facility] Overall Financial Resource Strain (CARDIA) Difficulty of Paying Living Expenses: Not hard at all Childcare: Low Risk (02/07/2021) Childcare Childcare: No Employment: Low Risk (02/07/2021) Employment Employment: No Purpose - Life: Low Risk (02/07/2021) Purpose - Life Purpose and direction in life: Agree Depression: Not at risk (03/13/2024) Received from [facility] PHQ-2 Patient Health Questionnaire-2 Score: 0 Alcohol Use: Not At Risk (01/06/2024) Received from [facility] AUDIT-C Frequency of Alcohol Consumption: Monthly or less Average Number of Drinks: Patient does not drink Frequency of Binge Drinking: Never Tobacco Use: Low Risk (04/11/2025) Patient History Smoking Tobacco Use: Never Smokeless Tobacco Use: Never Passive Exposure: Not on file Social Connections: Socially Isolated (01/06/2024) Received from [facility] Social Connection and Isolation Panel [NHANES] Frequency of Communication with Friends and Family: Never Frequency of Social Gatherings with Friends and Family: Never Attends Adventism Services: Never Active Member of Clubs or Organizations: Yes Attends Club or Organization Meetings: Never Marital Status: Physical Activity: Inactive (01/06/2024) Received from [facility] Exercise Vital Sign Days of Exercise per Week: 0 days Minutes of Exercise per Session: 0 min Stress: Stress Concern Present (01/06/2024) Received from [facility] Twain of Occupational Health - Occupational Stress Questionnaire [...] debridement Post debridement 04/24/25 1100 Site Assessment [place];Red 04/24/25 1100 Debi-wound Assessment Callous;Dry 04/24/25 1100 [...] Risks discussed: Yes Debridement Details: Performed by: AVIONICS ELECTRICAL ENGINEER Type: Sharp Level: Subcutaneous Tissue, Devitalized tissue [...] short term goal is wound compliance. Our halfway goal is wound closure. The patient was [...] 11:51 AM Sherri Garcia APRN, ROSALIA, CWS, ANVNEET [facility]:[phone] SCOTT Vaughn 03/28/25 1311 SCOTT Vaughn 03/28/25 1619 SCOTT Vaughn 04/11/25 1218 SCOTT Vaughn 04/24/25 1202 documented in this encounterRutland Regional Medical CenterBioSig Technologies [id number] Instructions* Patient Instructions* Sulma Humphreys RN - [...] Description small Serosanginous yellow documented in this encounterSum[facility]05-30-2025 Nurse Note* Robbin Conti RN - 04/20/2025 11:02 AM EDT 1102 Spoke to patient to give procedure day instructions. Patient states he was told it was denied . Attempted to get clarification, but was unable to. Phone number to scheduling office provided to patient so that he can tell them the same thing I was told. No instructions given. [facility]05-30-2025 Nurse Note* Robbin Conti RN [...] told. No instructions given. documented in this encounterSouthview Medical Center05-28-2025 Telephone encounter Note * Telephone Encounter - Tamara Goncalves RN - 04/18/2025 3:21 PM EDT G-POEM for date of service 04/25/2025. Appeal with all information including letter, study, JAMIN notes, GES result, EGG result, EGD result,CT result, faxed to [employer]Appeals Dept at fax [phone] with confirmation. Appeal also mailed out to [employer]/Appeals Dept) to the address provided. Copy placed in shared clinical office filing cabinet. [facility] Work Phone: [phone] Miscellaneous Notes* Telephone Encounter - Tamara Goncalves RN - 04/18/2025 3:21 PM EDT G-POEM for date of service 04/25/2025. Appeal with all information including letter, study, JAMIN notes, GES result, EGG result, EGD result,CT result, faxed to [employer]Appeals Dept at fax [phone] with confirmation. Appeal also mailed out to [employer]/Appeals Dept) to the address provided. Copy placed in shared clinical office filing cabinet. documented in this encounterSouthview Medical Center05-21-2025 History of Present illness Narrative* Sherri Garcia, TRACK REPAIR SUPERVISOR-DETAIL DRAFTER - 04/11/2025 10:40 AM EDTAssociated Order(s): Debridement Post-Procedure Diagnose(s): Diabetic ulcer of right midfoot associated with type 2 diabetes mellitus, with muscle involvement without evidence of necrosis ([facility]) Images from the original note were not included. Wound Care Progress Note Patient: More Kingsley Jr. Date of : 1965 Chief Complaint: Right foot ulcer, follow up Subjective/HPI: More is a 59 y.o. male who present to [facility] for evaluation of 1 ulcer(s) on theright plantar midfoot. Patient established with wound clinic 03/28/2025. Current wound care includes: Vashe soak, cover with Xeroform, secure with roll gauze. Patient is wearing a right Darco off-loading shoe, Patient presents with a prosthetic of the left foot. Patient states he has been to Dr. Eric Stephenson, podiatry, in [facility]. Patient was seen in the emergency room [...] notes. Patient Active Problem List Diagnosis Sepsis ([facility]) Diabetic ulcer of right midfoot associated with type 2 diabetes mellitus, with muscle involvement without evidence of necrosis ([facility]) Chronic osteomyelitis of left foot with draining sinus ([facility]) Wound, open, foot with complication, left, initial encounter Charcot's joint of foot, left Diabetes mellitus ([facility]) Hyperlipidemia Osteomyelitis of left foot ([facility] Ulcer of right foot with fat layer exposed ([facility]) History of transmetatarsal amputation of right foot ([facility]) 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 ([facility]) Unstable ankle, right Past Medical History: Diagnosis Date Acid reflux Anemia Arthritis Cataract right lens implant Charcot's joint 02/2021 left foot Chronic osteomyelitis of foot ([facility]) 02/2021 left/with draining sinus Dental disease poor repair Diabetes mellitus type 2, controlled [place] Hyperlipidemia Hypertension PICC (peripherally inserted central catheter) flush 02/2021 Visual impairment glasses Past Surgical History: Procedure Laterality Date AMPUTATION SYMES LOWER EXTREMITY Left 04/18/2021 Performed by Chan Brooke DPM at [facility] AMPUTATION TOEMID FOOT OSTEOTOMY ACHILLES TENOTOMY Left 02/07/2021 Performed by Chan Brooke DPM at [facility] ASPIRATION BONE MARROW BIOPSY BONE MARROW (BONE BIOPSY) Left 03/24/2021 Performed by Chan Brooke DPM at [facility] CLOSURE WOUND LOWER EXTREMITY (DELAYED PRIMARY CLOSURE) Left 03/24/2021 Performed by Chan Brooke DPM at [facility] DEBRIDEMENT FOOT/ANKLE Left 02/07/2021 Performed by Chan Brooke DPM at [facility] EXOSTECTOMY FOOT Right 09/01/2021 Performed by Chan Brooke DPM at [facility] PHACO KELMAN I IMPLANT INTRAOCULAR LENS Right 12/28/2019 Performed by Debra Trejo MD at [facility] REMOVAL HARDWARE FOOT/TOE, AND REMOVAL ANTIBIOTIC SPACER Left 03/24/2021 Performed by Chan Brooke DPM at [facility] TONSILLECTOMY as child Social Drivers of Health Food Insecurity: No Food Insecurity (03/04/2025) Hunger Screening Food Insecurity - Worry: Never True Food Insecurity - Inability: Never True Housing Instability: Low Risk (01/06/2024) Received from [facility] Housing Stability Vital Sign Unable to Pay for Housing in the Last Year: No Number of Places Lived in the Last Year: 1 Unstable Housing in the Last Year: No Transportation Needs: Unmet Transportation Needs (01/06/2024) Received from [facility] PRAPARE - Transportation Lack of Transportation (Medical): Yes Lack of Transportation (Non-Medical): Yes Utility Difficulties: Not on file Interpersonal Safety: Unknown (01/13/2024) Received from [facility] [place] Safety & Environment Fear of Current or Ex-Partner: Not on file Emotionally Abused: Not on file Physically Abused: Not on file Sexually Abused: Not on file Physically or Sexually Abused: Not on file Financial Resource Strain: Low Risk (01/06/2024) Received from [facility] Overall Financial Resource Strain (CARDIA) Difficulty of Paying Living Expenses: Not hard at all Childcare: Low Risk (02/07/2021) Childcare Childcare: No Employment: Low Risk (02/07/2021) Employment Employment: No Purpose - Life: Low Risk (02/07/2021) Purpose - Life Purpose and direction in life: Agree Depression: Not at risk (03/13/2024) Received from [facility] PHQ-2 Patient Health Questionnaire-2 Score: 0 Alcohol Use: Not At Risk (01/06/2024) Received from [facility] AUDIT-C Frequency of Alcohol Consumption: Monthly or less Average Number of Drinks: Patient does not drink Frequency of Binge Drinking: Never Tobacco Use: Low Risk (03/28/2025) Patient History Smoking Tobacco Use: Never Smokeless Tobacco Use: Never Passive Exposure: Not on file Social Connections: Socially Isolated (01/06/2024) Received from [facility] Social Connection and Isolation Panel [NHANES] Frequency of Communication with Friends and Family: Never Frequency of Social Gatherings with Friends and Family: Never Attends Adventism Services: Never Active Member of Clubs or Organizations: Yes Attends Club or Organization Meetings: Never Marital Status: Physical Activity: Inactive (01/06/2024) Received from [facility] Exercise Vital Sign Days of Exercise per Week: 0 days Minutes of Exercise per Session: 0 min Stress: Stress Concern Present (01/06/2024) Received from [facility] [place]ron[place] [facility] of Occupational Health - Occupational Stress Questionnaire [...] debridement Post debridement 04/11/25 1053 Site Assessment Moist;[place];Yellow;Red 04/11/25 1041 Debi-wound Assessment Dry;Callous;Maceration 04/11/25 1041 [...] Risks discussed: Yes Debridement Details: Performed by: AVIONICS ELECTRICAL ENGINEER Type: Sharp Level: Subcutaneous Tissue, Devitalized tissue [...] with muscle involvement without evidence of necrosis ([facility]) 2. History of transmetatarsal amputation of right foot ([facility]) 3. 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 ([facility]) 4. Wound, open, foot with complication, left, [...] roll gauze Off-load with a cut out [place] foam pad Change daily Renewed prescription written for Augmentin 875-510 mg b.i.d. for 10 days, dispensed 20. Referral to Dr. Stephenson's office for off-loading [place] boot fitting Patient instructed in diabetic foot ulcer care to right and foot. Patient verbalize ability to perform wound care. Patient verbalized understanding. We will continue to follow closely to avoid any complications or infection. Our short term goal is wound compliance. Our termite treater goal is wound closure. The patient was [...] ALBARO, NAVNEET Baumannt [facility]:[phone] SCOTT Vaughn 03/28/25 1311 SCOTT Vaughn 03/28/25 1619 SCOTT Vaughn 04/11/25 1218 documented in this encounterRutland Regional Medical CenterStandDesk05-21-2025 Instructions* Patient Instructions* Seema Hassan RN - [...] Description small Serosanginous yellow documented in this encounterLake County Memorial Hospital - WestDataFox Beaumont [id number] NoteHNO ID: [id number] Author: JEROME DEL TORO, DO Service: ? Author Type: Physician Type: Progress Notes Filed: 04/10/2025 10:33 Note Text: [facility] Gastroparesis/Dysmotility Consultation SERVICE DATE: 04/10/2025 SERVICE TIME: 10:04 AM PRIMARY CARE PHYSICIAN: No primary care provider on file. Imad Asaad [address] [id number] My final recommendations will be communicated back [...] obtained. NAME: More Kingsley Jr. CLINIC NO: [id number] DATE OF SERVICE: April 10, 2025 This [...] of 0 to (more content not included)... [facility]05-20-2025 NoteHNO ID: [id number] Author: ANDREY ESTRELLA MA Service: ? Author Type: Smutter Type: Progress Notes Filed: 04/10/2025 10:33 Note Text: What is the reason for your visit today? Consult /empties Who is your referring physician? Tracy Yoon Are you having poor oral intake? YES Have you had unintentional weight loss of 15 lbs/7 Kg in the last 3-6 months? NO Bowels: regular Wound: clean AND dry Temperature: No Drains: [facility]05-20-2025 NoteHNO ID: [id number] Author: COURTNEY GLOVER PSYD Service: ? Author [...] diffuse bodily pain, and chronic headaches/migraines since metalizer. He denies any significant psychiatric history and [...] Tends to sleep on his side. [x]Headaches-since metalizer []Depression-denied ME (more content not included)...[facility]05-20-2025 NoteHNO ID: [id number] Author: ART FIGUEREDO, DO Service: ? Author [...] Medications - Does the patient see a final touch up painter for chronic pain?No - Is the patient [...] - Has the patient met with a burnishing machine operator for diet recommendations with Gastroparesis? No - [...] No evidence of an (more content not included)...[facility]05-15-2025 Telephone encounter Note* Telephone Encounter - Shena [...] back Shena Dent RN April 05, 2025 [facility]05-15-2025 Miscellaneous Notes* Telephone Encounter - Shena Dent [...] RN April 05, 2025 documented in this encounterSouthview Medical Center05-07-2025 History of Present illness Narrative* Sherri Gurvinder Garcia, TRACK REPAIR SUPERVISOR-DETAIL DRAFTER - 03/28/2025 10:40 AM EDTAssociated Order(s): Debridement Post-Procedure Diagnose(s): Diabetic ulcer of right midfoot associated with type 2 diabetes mellitus, with muscle involvement without evidence of necrosis ([facility]); History of transmetatarsal amputation of right foot ([facility]) Images from the original note were not included. Wound Care Progress Note Patient: More Kingsley . Date of : 1965 Chief Complaint: Right foot ulcer New patient evaluation Subjective/HPI: More is a 59 y.o. male who present to [facility] for evaluation of 1 [...] AUREUS METHICILLIN RESISTANT VARIANT Abnormal Resulting Agency [facility] Today's reported Blood sugar: Patient does [...] notes. Patient Active Problem List Diagnosis Sepsis ([facility]) Diabetic ulcer of left midfoot associated with type 2 diabetes mellitus, with necrosis of bone ([facility]) Chronic osteomyelitis of left foot with draining sinus [place] Wound, open, foot with complication, left, initial encounter Charcot's joint of foot, left Diabetes mellitus ([facility]) Hyperlipidemia Osteomyelitis of left foot [place] Ulcer of right foot with fat layer exposed [place] History of transmetatarsal amputation of right foot ([facility]) Past Medical History: Diagnosis Date Acid reflux Anemia Arthritis Cataract right lens implant Charcot's joint 02/2021 left foot Chronic osteomyelitis of foot ([facility]) 02/2021 left/with draining sinus Dental disease poor repair Diabetes mellitus type 2, controlled [place] Hyperlipidemia Hypertension PICC (peripherally inserted central catheter) flush 02/2021 Visual impairment glasses Past Surgical History: Procedure Laterality Date AMPUTATION SYMES LOWER EXTREMITY Left 04/18/2021 Performed by Chan Brooke DPM at [facility] AMPUTATION TOEMID FOOT OSTEOTOMY ACHILLES TENOTOMY Left 02/07/2021 Performed by Chan Brooke DPM at [facility] ASPIRATION BONE MARROW BIOPSY BONE MARROW (BONE BIOPSY) Left 03/24/2021 Performed by Chan Brooke DPM at [facility] CLOSURE WOUND LOWER EXTREMITY (DELAYED PRIMARY CLOSURE) Left 03/24/2021 Performed by Chan Brooke DPM at [facility] DEBRIDEMENT FOOT/ANKLE Left 02/07/2021 Performed by Chan Brooke DPM at [facility] EXOSTECTOMY FOOT Right 09/01/2021 Performed by Chan Brooke DPM at [facility] KELMAN I IMPLANT INTRAOCULAR LENS Right 12/28/2019 Performed by Debra Trejo MD at [facility] REMOVAL HARDWARE FOOT/TOE, AND REMOVAL ANTIBIOTIC SPACER Left 03/24/2021 Performed by Chan Brooke DPM at [facility] TONSILLECTOMY as child Social Drivers of Health Food Insecurity: No Food Insecurity (03/04/2025) Hunger Screening Food Insecurity - Worry: Never True Food Insecurity - Inability: Never True Housing Instability: Low Risk (01/06/2024) Received from [facility] Housing Stability Vital Sign Unable to Pay for Housing in the Last Year: No Number of Places Lived in the Last Year: 1 Unstable Housing in the Last Year: No Transportation Needs: Unmet Transportation Needs (01/06/2024) Received from [facility] PRAPARE - Transportation Lack of Transportation (Medical): Yes Lack of Transportation (Non-Medical): Yes Utility Difficulties: Not on file Interpersonal Safety: Unknown (01/13/2024) Received from [facility] [place] Safety & Environment Fear of Current or Ex-Partner: Not on file Emotionally Abused: Not on file Physically Abused: Not on file Sexually Abused: Not on file Physically or Sexually Abused: Not on file Financial Resource Strain: Low Risk (01/06/2024) Received from [facility] Overall Financial Resource Strain (CARDIA) Difficulty of Paying Living Expenses: Not hard at all Childcare: Low Risk (02/07/2021) Childcare Childcare: No Employment: Low Risk (02/07/2021) Employment Employment: No Purpose - Life: Low Risk (02/07/2021) Purpose - Life Purpose and direction in life: Agree Depression: Not at risk (03/13/2024) Received from [facility] PHQ-2 Patient Health Questionnaire-2 Score: 0 Alcohol Use: Not At Risk (01/06/2024) Received from [facility] AUDIT-C Frequency of Alcohol Consumption: Monthly or less Average Number of Drinks: Patient does not drink Frequency of Binge Drinking: Never Tobacco Use: Low Risk (03/04/2025) Patient History Smoking Tobacco Use: Never Smokeless Tobacco Use: Never Passive Exposure: Not on file Social Connections: Socially Isolated (01/06/2024) Received from [facility] Social Connection and Isolation Panel [NHANES] Frequency of Communication with Friends and Family: Never Frequency of Social Gatherings with Friends and Family: Never Attends Adventism Services: Never Active Member of Clubs or Organizations: Yes Attends Club or Organization Meetings: Never Marital Status: Physical Activity: Inactive (01/06/2024) Received from [facility] Exercise Vital Sign Days of Exercise per Week: 0 days Minutes of Exercise per Session: 0 min Stress: Stress Concern Present (01/06/2024) Received from [facility] Twain of Occupational Health - Occupational Stress Questionnaire [...] Risks discussed: Yes Debridement Details: Performed by: AVIONICS ELECTRICAL ENGINEER Type: Sharp Level: Subcutaneous Tissue, Devitalized tissue [...] with muscle involvement without evidence of necrosis ([facility]) 2. History of transmetatarsal amputation of right foot ([facility]) 3. Visit for wound check Vashe Use:sample [...] roll gauze Off-load with a cut out [place] foam pad Change daily Discussed various offloading [...] short term goal is wound compliance. Our halfway goal is wound closure. The patient was [...] CWS, COCN [facility]:[phone] SCOTT Vaughn 03/28/25 1311 SCOTT Vaughn 03/28/25 1619 documented in this encounterSumma [facility]05-07-2025 Instructions* Patient Instructions* Seema Hassan RN - [...] Description moderate Serosanginous yellow documented in this encounterSumma Health Akron Campus12-31-2024 Telephone encounter Note* Telephone Encounter - Leonard Cadet - 11/21/2024 3:[address] Yoon's office phones requesting office note from October 24 When completed, please fax to [phone] Leonard Cadet [facility]12-31-2024 Miscellaneous Notes* Telephone Encounter - Leonard Cadet - 11/21/2024 3:[address] Yoon's office phones requesting office note from October 24 When completed, please fax to [phone] Leonard Cadet documented in this encounterSouthview Medical Center12-03-2024 NoteHNO ID: [id number] Author: DAVIDA PRICE MD Service: ? Author Type: Physician Type: Progress Notes Filed: 05/20/2025 17:03 Note Text: Summary: Patient not seen Patient was not seen. Miscommunication between my office and the patient. I was out of the office. Will be rescheduled.[facility]12-03-[facility] History of Present illness Narrative* Davida Price MD - 10/24/2024 4:57 PM ESTSummary: Patient not seen Patient was not seen. Miscommunication between my office and the patient. I was out of the office. Will be rescheduled. documented in this encounterSouthview [facility] Center08-01-2024 Telephone encounter Note * Telephone Encounter - Deonna Patel - 06/22/2024 6:55 AM EDT Gp ref and ges in scanned docs Needs registration [facility]08-01-2024 Miscellaneous Notes* Telephone Encounter - Deonna Patel - 06/22/2024 6:55 AM EDT Gp ref and ges in scanned docs Needs registration documented in this encounterSouthview Medical Center06-18-2024 Evaluation note* Author Tracy Yoon [facility] CenterAuthoredJunjacques 2023 [id number] man with recurrent nausea and vomiting came today for follow-up + Recurrent nausea and vomiting associated with abdominal pain. EGD on 02/03/2024 showed gastritis, gastric biopsies were negative for H. pylori, duodenal biopsies were negative for celiac disease. Symptoms are not responsive to PPI + Uncontrolled diabetes Will arrange for CT abdomen/pelvis. Will arrange for gastric emptying study. [facility] Work Phone: 1(983) 393-957403-14-2024 Procedure noteLakehealth Tripoint Medical Center01-04-2024 Evaluation note* Encounter Date Diagnosis [...] is to continue with famotine and pantoprazole Zorap Other 12-18-2023 Evaluation note* Encounter Date Diagnosis [...] - L90.9) recommend f/u with Dr. Stephenson [employer] Other 10-04-2023 Evaluation note* Encounter Date Diagnosis [...] map diet Pt RTO in 3 months [employer] Other 04-04-2023 Evaluation note* Encounter Date Diagnosis [...] Feb,ERD (gastroesophageal reflux disease) (ICD-10 - K21.9) [employer] Other 10-04-2022 Evaluation note* Encounter Date Diagnosis Assessment Notes Treatment Notes Treatment Clinical Notes Aug, GERD (gastroesophageal reflux di sease) (ICD-10 - K21.9) Stop Pantoprazole Start Omeprazole 40mg bid, 30 minutes prior to the first meal and last meal of the day. Follow up in 6 months Aug,Nausea & vomiting (ICD-10 - R11.2) [facility] [employer] Other Chief complaint+Reason for visit Narrative* Chief Complaint Referral Cheng mayberry DM 6 week follow upReason for VisitNausea and vomiting [facility] Work Phone: Evaluation noteNo InformationNortEndless Mountains Health Systems [employer] Other Evaluation note* Diagnosis Onset Date Resolution Status Nausea and vomiting acute [facility] Work Phone: Evaluation note* Diagnosis Diabetic ulcer of right midfoot associated with type 2 diabetes mellitus, with muscle involvement without evidence of necrosis ([facility]-H[facility])- Primary History of transmetatarsal amputation of right foot ([facility]) Visit for wound check [facility] Diagnosis Diabetic ulcer of right midfoot associated with type 2 diabetes mellitus, with muscle involvement without evidence of necrosis ([facility]-HCC)- Primary History of transmetatarsal amputation of right foot ([facility]-HCC) 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 ([facility]) Wound, open, foot with complication, left, initial encounter Unstable ankle, right [facility] Diagnosis Benign essential HTN- Primary Type 2 diabetes mellitus with foot ulcer, with long-term current use of insulin (CMS-HCC) Chronic midline low back pain without sciatica Fatty liver disease, nonalcoholic Visit for wound check Hyperglycemia Other abnormal glucose Gastroesophageal reflux disease, unspecified whether esophagitis present [facility] Diagnosis Diabetic ulcer of right midfoot associated with type 2 diabetes mellitus, with muscle involvement without evidence of necrosis ([facility]-HCC)- Primary 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 ([facility]) [facility] Diagnosis Benign essential HTN- [...] Fatigue, unspecified type documented [facility] this encounter [facility] Diagnosis Benign essential HTN- [...] of insulin (CMS-HCC) [facility] Diagnosis Benign essential HTN- [...] insulin (CMS-HCC)- Primary [facility] this encounter [facility]* Diagnosis Gastroparesis- Primary [facility] [place] noteNo assessment information availableMercy Health St. [facility] Work Phone: Evaluation note* Diagnosis Benign essential HTN- Primary Type 2 diabetes mellitus with foot ulcer, with long-term current use of insulin (CMS-HCC) Chronic midline low back pain without sciatica Fatty liver disease, nonalcoholic Visit for wound check Hyperglycemia Other abnormal glucose Gastroesophageal reflux disease, unspecified whether esophagitis present Type 2 diabetes mellitus with foot ulcer, with long-term current use of insulin ([facility]) Benign essential HTN Gastroesophageal reflux disease, unspecified whether esophagitis present Chronic midline low back pain without sciatica Encounter for screening for malignant neoplasm of prostate Fatigue, unspecified type Ulcer of right foot with fat layer exposed ([facility] Primary Type 2 diabetes mellitus with foot ulcer, with long-term current use of insulin ([facility] Hyperlipidemia, unspecified hyperlipidemia type Gastroesophageal reflux disease, unspecified whether esophagitis present Peripheral artery disease Type 2 diabetes mellitus with foot ulcer, with long-term current use of insulin ([facility]) documented [facility] this encounter [facility] Diagnosis Benign essential HTN- Primary Type 2 diabetes mellitus with foot ulcer, with long-term current use of insulin ([facility]) Chronic midline low back pain without sciatica Fatty liver disease, nonalcoholic Visit for wound check Hyperglycemia Other abnormal glucose Gastroesophageal reflux disease, unspecified whether esophagitis present Type 2 diabetes mellitus with foot ulcer, with long-term current use of insulin ([facility]) Benign essential HTN Gastroesophageal reflux disease, unspecified whether esophagitis present Chronic midline low back pain without sciatica Encounter for screening for malignant neoplasm of prostate Fatigue, unspecified type Ulcer of right foot with fat layer exposed ([facility])- Primary Type 2 diabetes mellitus with foot ulcer, with long-term current use of insulin ([facility]) Hyperlipidemia, unspecified hyperlipidemia type Gastroesophageal reflux disease, unspecified whether esophagitis present Peripheral artery disease documented in this encounter [facility] Diagnosis Benign essential HTN- Primary Type 2 diabetes mellitus with foot ulcer, with long-term current use of insulin ([facility]) Chronic midline low back pain without sciatica Fatty liver disease, nonalcoholic Visit for wound check Hyperglycemia Other abnormal glucose Gastroesophageal reflux disease, unspecified whether esophagitis present Type 2 diabetes mellitus with foot ulcer, with long-term current use of insulin ([facility]) Benign essential HTN Gastroesophageal reflux disease, unspecified whether esophagitis present Chronic midline low back pain without sciatica Encounter for screening for malignant neoplasm of prostate Fatigue, unspecified type Ulcer of right foot with fat layer exposed ([facility])- Primary Type 2 diabetes mellitus with foot ulcer, with long-term current use of insulin ([facility] Hyperlipidemia, unspecified hyperlipidemia type Gastroesophageal reflux disease, unspecified whether esophagitis present Peripheral artery disease Type 2 diabetes mellitus with other circulatory complication, with long-term current use of insulin([facility])- Primary documented in this encounter [facility]* Diagnosis Benign essential HTN- Primary Type 2 diabetes mellitus with foot ulcer, with long-term current use of insulin ([facility]) Chronic midline low back pain without sciatica Fatty liver disease, nonalcoholic Visit for wound check Hyperglycemia Other abnormal glucose Gastroesophageal reflux disease, unspecified whether esophagitis present Type 2 diabetes mellitus with foot ulcer, with long-term current use of insulin ([facility]) Benign essential HTN Gastroesophageal reflux disease, unspecified whether esophagitis present Chronic midline low back pain without sciatica Encounter for screening for malignant neoplasm of prostate Fatigue, unspecified type Ulcer of right foot with fat layer exposed ([facility])- Primary Type 2 diabetes mellitus with foot ulcer, with long-term current use of insulin ([facility] Hyperlipidemia, unspecified hyperlipidemia type Gastroesophageal reflux disease, unspecified whether esophagitis present Peripheral artery disease Type 2 diabetes mellitus with other circulatory complication, with long-term current use of insulin([facility] Primary Type 2 diabetes mellitus with foot ulcer, with long-term current use of insulin ([facility] Benign essential HTN Mixed hyperlipidemia due to type 2 diabetes mellitus ([facility]) Gastroesophageal reflux disease, unspecified whether esophagitis present Chronic midline low back pain without sciatica Ulcer of right foot with fat layer exposed ([facility]) documented in this encounter [facility] Diagnosis Benign essential HTN- Primary Type 2 diabetes mellitus with foot ulcer, with long-term current use of insulin ([facility]) Chronic midline low back pain without sciatica Fatty liver disease, nonalcoholic Visit for wound check Hyperglycemia Other abnormal glucose Gastroesophageal reflux disease, unspecified whether esophagitis present Type 2 diabetes mellitus with foot ulcer, with long-term current use of insulin ([facility]) Benign essential HTN Gastroesophageal reflux disease, unspecified whether esophagitis present Chronic midline low back pain without sciatica Encounter for screening for malignant neoplasm of prostate Fatigue, unspecified type Ulcer of right foot with fat layer exposed ([facility] Primary Type 2 diabetes mellitus with foot ulcer, with long-term current use of insulin ([facility] Hyperlipidemia, unspecified hyperlipidemia type Gastroesophageal reflux disease, unspecified whether esophagitis present Peripheral artery disease 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 ([facility] [E11.628, L84]- Primary documented in this encounter [facility] Diagnosis Benign essential HTN- Primary Type 2 diabetes mellitus with foot ulcer, with long-term current use of insulin ([facility]) Chronic midline low back pain without sciatica Fatty liver disease, nonalcoholic Visit for wound check Hyperglycemia Other abnormal glucose Gastroesophageal reflux disease, unspecified whether esophagitis present Type 2 diabetes mellitus with foot ulcer, with long-term current use of insulin ([facility]) Benign essential HTN Gastroesophageal reflux disease, unspecified whether esophagitis present Chronic midline low back pain without sciatica Encounter for screening for malignant neoplasm of prostate Fatigue, unspecified type Ulcer of right foot with fat layer exposed ([facility])- Primary Type 2 diabetes mellitus with foot ulcer, with long-term current use of insulin ([facility]) Hyperlipidemia, unspecified hyperlipidemia type Gastroesophageal reflux disease, unspecified whether esophagitis present Peripheral artery disease Ulcer of right foot with fat layer exposed ([facility])- Primary documented in this encounter [facility]* Diagnosis Benign essential HTN- Primary Type 2 diabetes mellitus with foot ulcer, with long-term current use of insulin ([facility]) Chronic midline low back pain without sciatica Fatty liver disease, nonalcoholic Visit for wound check Hyperglycemia Other abnormal glucose Gastroesophageal reflux disease, unspecified whether esophagitis present Type 2 diabetes mellitus with foot ulcer, with long-term current use of insulin ([facility]) Benign essential HTN Gastroesophageal reflux disease, unspecified whether esophagitis present Chronic midline low back pain without sciatica Encounter for screening for malignant neoplasm of prostate Fatigue, unspecified type Ulcer of right foot with fat layer exposed ([facility])- Primary Type 2 diabetes mellitus with foot ulcer, with long-term current use of insulin ([facility]) Hyperlipidemia, unspecified hyperlipidemia type Gastroesophageal reflux disease, unspecified whether esophagitis present Peripheral artery disease Gastroesophageal reflux disease, unspecified whether esophagitis present- Primary Type 2 diabetes mellitus with foot ulcer, with long-term current use of insulin ([facility]) Benign essential HTN Chronic midline low back pain without sciatica Mixed hyperlipidemia due to type 2 diabetes mellitus ([facility]) documented in this encounter [facility] note Author Tracy [facility] February 03, 2024 2:08pmNote Date/TimeMarch 2023 2:08[place] [address] Gastroenterology H&P Signed Patient: More Kingsley MR#: [id number] : 1965 Acct:[id number] Age/Sex: 58 / M Adm Date: 4 Loc: Room: Type: [facility] Attending Dr: Tracy Yoon MD Copies [...] signed by Tracy Yoon MD> 02/03/24 1409 [facility] Work Phone: History general Narrative - Reported* Type Description Date Medical History high blood pressure Medical Historyhigh cholesterolMedical Historydiabetes mallitusSurgical History toes removed on right footSurgical Historyleft footSurgical Historyright eye [place] [facility] Other History general Narrative - Reported* Type Description Date Medical History high blood pressure Medical Historyhigh cholesterolMedical Historydiabetes mellitusMedical History peripheral neuropathyMedical Historyfatty liverMedical Historyretinopathy Surgical Historytoes removed on right footSurgical Historyleft footSurgical Historyright eyeHospitalization HistoryFoot [facility] Other InstructionsNot on filedocumented in this encounter [...] for referral (narrative)No reason for referral information availableMercy Health St. 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, BC-ADMNort [employer] Other Summary Purpose Family History No Family [...] 8:18 PMCode StatusDate ActivatedDate InactivatedCommentsFull Code - Dtkxveeray99/15/2020 7:21 PM11/21/2020 10:03 PMTypeDate RecordedPatient RepresentativeExplanationAdvance Directives and Living Will11/06/2020 8:18 PM Code StatusDate ActivatedDate InactivatedCommentsFull Code - Unverified 11/05/2020 7:21 PM11/21/2020 10:03 PMTypeDate RecordedPatient Poolroom/Poolhall Manager ExplanationAdvance Directives and Living Will12/19/2020 8:18 PMTypeDate [...] retinopathy type (HCC) Palak Arora MD [address] [place] [address] Reason Eval and treat/ Food allergy testing. Diagnosis 1 Nausea & vomiting (R 11.2) Referral Organization [facility] Referring Provider First Name Amor Referring Provider Last Name Dichloe Referring Provider Specialty Gastroenter ology Referred Organization Unknown Facility Referred Provider Specialty Allergy/Immu nology Referral Priority Routine Reason DIABETES MANAGEMENT Diagnosis 1 Diabetes mellitus ty pe 2 with complications (E11.8) Referral Organization [facility] Referring Provider First Name Sebastián Referring [...] HOSPITALIST DISCHARGE SUMMARY Patient: More Kingsley Account: [id number] Admitted: 11/05/2020 Discharge Date/Time: 11/21/2020 Clinical Summary [...] Inpatient consult to Endocrinology Inpatient consult to Therapeutic Recreation Assistant Inpatient consult to Dietitian Inpatient consult to [...] Discharge Diet: Oral nutrition supplements Tyree; Tyree Florence At dinner Oral nutrition supplements Tyree; Tyree [...] lispro 100 unit/mL injection Physician(s) Family: Cheng Satples CNP, , Address: [address] [place] [id number] Follow Up: [facility] [address] [facility] [id number] Schedule an appointment as soon as possible for a visit in 2 week(s) Dr. Arabella [facility] Address: Servicing Counties: [facility] [place], [place], [place], [place], [place], [place], [facility] [phone] Patient instructions, including activity, were given to [...] sent through Care Everywhere. * Wound Check (Uzbek) documented in this encounter History of Present [...] present. Principal Problem: Secondary DM with DKA ([facility]) Active Problems: Type 2 diabetes mellitus with retinopathy of both eyes, with long-term current use of insulin ([facility]) * Joan Trejo LISW - 11/21/2020 12:27 PM EST SIMPLE DISCHARGE Date: 11/21/2020 Time: 12:27 PM Patient Name: More Kingsley Jr. Date of : 1965 Sex: Male Patient has him home vac on . He will get his last antibiotic dose early tonight before discharge. [facility] will deliver antibiotics this evening to patient's home. [facility] will start care on11/23/2020 around 0900. [facility] RN will contact patient this evening to confirm time. Home care orderssent to Arturo at [facility]. He will contact this worker if he does not receive them. Discharge Planning Living Arrangements: Alone Support Systems: Children Type of Residence: Private residence Prior to Admission Home Care Services: No Current Home Equipment: None Regulatory Documentation: Medicare IM Regulatory Documentation Status: Signed Signed: Self * Marcella Bell MD - 11/20/2020 6:47 PM EST Patient Name: More Kingsley Jr. Admit Date: MR #: [id number] : 1965 Physicians: Cheng Staples CNP (Family); No ref. provider found (Referring) Assessment: Patient with 1. Left foot abscess, with MSSA 2. Osteomyelitis with MSSA 3. Uncontrolled diabetes. 4. Abdominal pain. 5. Constipation. Plan. Continue patient on current therapyn. Continue patient on IV cefazolin. I reviewed labs, including cultures, with MSSA, and be strep. I appreciate parking lot spotter evaluation. Patient needs incision and drainage of left foot abscess Dressing according to parking lot spotter recommendation Endocrinology evaluation for adequate blood sugar [...] (NS), 0-150 mL/hr, Intravenous, PRN, Tanja Whitmore, [facility],PharmD, New Bag at 11/11/20 1615 PMH/PSH/SH/ [...] excoriations Musculoskeletal: No joint swelling, non tender REGIONAL TELECOMMUNICATIONS SPECIALIST: Awake, and Ox3 Wound: Foot with description [...] retained stool in the proximal colon and [id number] amount of retained stool in the distal [...] No tendon tear or tenosynovitis is seen. [facility]/[employer] Workstation ID: [id number] MR Foot Right With And Without Contrast Final Result 1. Prior forefoot resection. Cellulitis of the surgical stump is seen associated with small ulceration. 2. No abscess. 3. No MR signs of osteomyelitis. 4. Mkqw-ty-kkrpzaft mid/hindfoot osteoarthritis. 5. Remote sprains of the ATFL and deep fibers of the deltoid ligament, as above. [employer] Workstation ID: [id number] XR Foot Left 3+ [...] eyes, with long-term current use of insulin ([facility]) Relevant Medications insulin glargine (LANTUS) 100 unit/mL [...] Arora MD - 11/20/2020 5:49 PM EST [facility] Medicine Inpatient Follow-up 11/20/2020 Palak Arora MD [facility] Patient: More Kingsley . Date of [...] Q8H heparin (porcine) 5,000 Units Subcutaneous Q8H [facility] insulin glargine 25 Units Subcutaneous Nightly lispro insulin 0-15 Units Subcutaneous at bedtime insulin lispro 0-30 Units Subcutaneous Daily before lunch insulin lispro 0-30 Units Subcutaneous Before dinner [START ON 11/21/2020] insulin lispro 0-30 Units Subcutaneous QAM AC pantoprazole 40 mg Oral Daily sodium chloride (PF) 10 mL Intracatheter Q8H [facility] Results/Medications Reviewed 11/20/20 5:49 PM: Results [...] of bed rail) Sit to Supine: Modified Florence(HOB elevated) Skilled Intervention: Pt seated EOB ~11 [...] . Prior Level of Function Level of Florence: Independent with ADLs and functional transfers Lives [...] Date of : 1965 Sex: Male This eligibility specialist received call back from [facility], agency able to accept patient and start care on WednesdayNovember 22. Joan social sciences research scientist updated. Abdoulaye Menjivar [facility] Disposition Regulatory Documentation: Medicare IM Regulatory Documentation Status: Signed Signed: Self * Joan Trejo LISW - 11/20/2020 10:35 AM EST DISCHARGE PLAN PROGRESS NOTE Date: 11/20/2020 Time: 10:35 AM Patient Name: More Kingsley Jr. Date of : 1965 Sex: Male [facility] contacted this worker. Patient has medicare part [...] due to amount of wound vac drainage. [facility] Disposition Regulatory Documentation: Medicare IM Regulatory Documentation Status: Signed Signed: Self * Marvel Mcmillan MD - 11/20/2020 9:55 AM EST Patient ID: Patient Name: More Kingsley Jr. Admit Date: 11/05/2020 MR #: [id number] : 1965 [place] [facility] [place] Physicians: Cheng Staples CNP (Family); Dr. Pinedo [...] CPM 11/14: Continue current insulin doses. Consult academic assistant for gastroparesis diet education. 11/18: CPM 11/19: CPM 11/20 Discharge on 5 H TID ac and 25 Lantus, plus SSI. Can restart metformin 1000 mg BID. [facility]with [facility] 2. Education: Reviewed ABCs of diabetes [...] with IV ATB. Pt does live in [place], is willing to follow up in wound [...] More Kingsley Jr. Admit Date: MR #: [id number] : 1965 Physicians: Cheng Staples CNP (Family); No ref. provider found (Referring) Assessment: Patient with 1. Left foot abscess, with MSSA 2. Osteomyelitis with MSSA 3. Uncontrolled diabetes. 4. Abdominal pain. 5. Constipation. Plan. Continue patient on current therapyn. Continue patient on IV cefazolin. I reviewed labs, including cultures, with MSSA, and be strep. I appreciate parking lot spotter evaluation. Patient needs incision and drainage of left foot abscess Dressing according to parking lot spotter recommendation Endocrinology evaluation for adequate blood sugar [...] (NS), 0-150 mL/hr, Intravenous, PRN, Tanja Whitmore, [facility],PharmD, New Bag at 11/11/20 1615 PMH/PSH/SH/FH [...] excoriations Musculoskeletal: No joint swelling, non tender REGIONAL TELECOMMUNICATIONS SPECIALIST: Awake, and Ox3 Wound: Foot with description [...] retained stool in the proximal colon and hfane-wq-rumvkbhp amount of retained stool in the distal [...] No tendon tear or tenosynovitis is seen. MPH/[employer] Workstation ID: [id number] MR Foot Right With And Without Contrast Final Result 1. Prior forefoot resection. Cellulitis of the surgical stump is seen associated with small ulceration. 2. No abscess. 3. No MR signs of osteomyelitis. 4. Owwn-qt-deporpdp mid/hindfoot osteoarthritis. 5. Remote sprains of the ATFL and deep fibers of the deltoid ligament, as above. MPH/[employer] Workstation ID: [id number] XR Foot Left 3+ [...] present. Principal Problem: Secondary DM with DKA ([facility]) Active Problems: Type 2 diabetes mellitus with retinopathy of both eyes, with long-term current use of insulin ([facility]) * Joan Trejo LISW - 11/19/2020 3:16 PM EST This worker was advised to sent referral to [facility]. Referral faxed. Message left for Sarver. * Jona Trejo LISW - 11/19/2020 2:31 PM EST [...] vac. Patient would like to go home. [facility] notified to check him home infusion benefits. Care coordination following. * Scarlett German - 11/19/2020 12:12 PM EST DISCHARGE PLAN PROGRESS NOTE Date: 11/19/2020 Time: 12:12 PM Patient Name: More Kingsley Jr. Date of : 1965 Sex: Male Spoke with pt regarding [facility], #1 choice [facility] ([phone]). Spoke with Seema and faxed free text to [phone] the [facility] referral and asked for a return call as soon as possible. Pt discharged possibly tomorrow. 13:18 - Rec'd call from Seema with [facility] and they CANNOT accept pt due to lack of staffing. Will try # 2 - [facility] ([phone]). 13:21 - Called # 2& spoke to Racquel, Free text referral to fax [phone] @ 13:26. Informed Ranjana via secure chat. 15:25 - Called Alix and Paola said they never rec'd fax sent at 13:26. Spoke with Ranjana and she said to move on to [facility]'s 2 suggestions 1)[facility] @ [phone]. I called and they have NO staff at this time to service Leopold. Moved on to 2) [facility], ([phone]) spoke with Evette and she said I could fax the referral ([phone]) which I did at 15:42. Scarlett German [...] . Prior Level of Function Level of Florence: Independent with ADLs and functional transfers Lives [...] Kingsley Jr. Admit Date: 11/05/2020 MR #: [id number] : 1965 [place] [facility] [place] [facility] [place] Physicians: Cheng Staples CNP (Family); Dr. Pinedo [...] CPM 11/14: Continue current insulin doses. Consult academic assistant for gastroparesis diet education. 11/18: CPM 11/19: [...] Arora MD - 11/19/2020 8:34 AM EST [facility] Medicine Inpatient Follow-up 11/19/2020 Palak Arora MD [facility] Patient: More Kingsley . Date of [...] More Kingsley Jr. Admit Date: MR #: [id number] : 1965 Physicians: Cheng Staples CNP (Family); No ref. provider found (Referring) Assessment: Patient with 1. Left foot abscess, with MSSA 2. Osteomyelitis with MSSA 3. Uncontrolled diabetes. 4. Abdominal pain. 5. Constipation. Plan. Continue patient on current therapyn. Continue patient on IV cefazolin. I reviewed labs, including cultures, with MSSA, and be strep. I appreciate parking lot spotter evaluation. Patient needs incision and drainage of left foot abscess Dressing according to parking lot spotter recommendation Endocrinology evaluation for adequate blood sugar [...] injection 5,000 Units, 5,000 Units, Subcutaneous, Q8H [facility], Chuyita Arias MD, Stopped at 11/18/20 0600 [...] Jean Farley MD, 1 tablet at 11/17/20 5486 pantoprazole (PROTONIX) EC tablet 40 mg, 40 mg, Oral, Daily, Chuyita Arias MD, 40 mg at 11/18/20 0857 sodium chloride 0.9% (NS), 0-150 mL/hr, Intravenous, PRN, Tanja Whitmore, [facility],PharmD, New Bag at 11/11/20 1615 PMH/PSH/SH/ [...] retained stool in the proximal colon and yreuu-xs-fmrjdafa amount of retained stool in the distal [...] No tendon tear or tenosynovitis is seen. MPH/[employer] Workstation ID: [id number] MR Foot Right With And Without Contrast Final Result 1. Prior forefoot resection. Cellulitis of the surgical stump is seen associated with small ulceration. 2. No abscess. 3. No MR signs of osteomyelitis. 4. Frkf-lz-acnyrtpi mid/hindfoot osteoarthritis. 5. Remote sprains of the ATFL and deep fibers of the deltoid ligament, as above. M[employer] Workstation ID: [id number] XR Foot Left 3+ [...] follow. Rosalinda Reyes RDN, LD Dietitian's Office [phone] * Palak Arora MD - 11/18/2020 9:28 AM EST [facility] Medicine Inpatient H&P 11/18/2020 Palak Arora MD [facility] Patient: More Kingsley Jr. Date of : 1965 (55 y.o.) PCP: Cheng Staples, DETAIL DRAFTER Assessment More Kingsley is a 54 y.o. [...] Kingsley Jr. Admit Date: 11/05/2020 MR #: [id number] : 1965 [place] [facility] [place] [facility] [place] Physicians: Cheng Staples CNP (Family); Dr. Pinedo [...] CPM 11/14: Continue current insulin doses. Consult academic assistant for gastroparesis diet education. 11/18: CPM 2. [...] More Kingsley Jr. Admit Date: MR #: [id number] : 1965 Physicians: Cheng Staples CNP (Family); No ref. provider found (Referring) Assessment: Patient with 1. Left foot abscess, with MSSA 2. Osteomyelitis with MSSA 3. Uncontrolled diabetes. 4. Abdominal pain. 5. Constipation. Plan. Continue patient on current therapyn. Continue patient on IV cefazolin. I reviewed labs, including cultures, with MSSA, and be strep. I appreciate parking lot spotter evaluation. Patient needs incision and drainage of left foot abscess Dressing according to parking lot spotter recommendation Endocrinology evaluation for adequate blood sugar [...] (NS), 0-150 mL/hr, Intravenous, PRN, Tanja Whitmore, [facility],PharmD, New Bag at 11/11/20 1615 PMH/PSH/SH/ [...] excoriations Musculoskeletal: No joint swelling, non tender REGIONAL TELECOMMUNICATIONS SPECIALIST: Awake, and Ox3 Wound: Foot with description [...] retained stool in the proximal colon and dnuyl-dx-mmlfkkcd amount of retained stool in the distal [...] No tendon tear or tenosynovitis is seen. MPH/[employer] Workstation ID: [id number] MR Foot Right With And Without Contrast Final Result 1. Prior forefoot resection. Cellulitis of the surgical stump is seen associated with small ulceration. 2. No abscess. 3. No MR signs of osteomyelitis. 4. Frle-if-mstrkaod mid/hindfoot osteoarthritis. 5. Remote sprains of the ATFL and deep fibers of the deltoid ligament, as above. M[employer] Workstation ID: [id number] XR Foot Left 3+ [...] Arias MD - 11/17/2020 10:29 AM EST [facility] Medicine Inpatient H&P 11/17/2020 Chuyita Arias MD [facility] Patient: More Kingsley Jr. Date of : 1965 (55 y.o.) PCP: Cheng Staples, DETAIL DRAFTER Assessment More Kingsley is a 54 y.o. [...] retained stool in the proximal colon and bvdlp-of-zvxxkzcb amount of retained stool in the distal [...] Progress Inpatient Follow-up 11/17/2020 Braeden Conte DPM [facility] Patient: More Kingsley Jr. Date of [...] 33.21 kg/m Laboratory and Additional Data Reviewed: Reviewed:[id number]} * Marcella Bell MD - 11/16/2020 7:11 PM EST Patient Name: More Kingsley Jr. Admit Date: MR #: [id number] : 1965 Physicians: Cheng Staples CNP (Family); No ref. provider found (Referring) Assessment: Patient with 1. Left foot abscess, with MSSA 2. Osteomyelitis with MSSA 3. Uncontrolled diabetes. 4. Abdominal pain. 5. Constipation. Plan. Continue patient on current therapyn. Continue patient on IV cefazolin. I reviewed labs, including cultures, with MSSA, and be strep. I appreciate parking lot spotter evaluation. Patient needs incision and drainage of left foot abscess Dressing according to parking lot spotter recommendation Endocrinology evaluation for adequate blood sugar [...] (NS), 0-150 mL/hr, Intravenous, PRN, Tanja Whitmore, [facility],PharmD, New Bag at 11/11/20 1615 PMH/PSH/SH/ [...] excoriations Musculoskeletal: No joint swelling, non tender REGIONAL TELECOMMUNICATIONS SPECIALIST: Awake, and Ox3 Wound: Foot with description [...] retained stool in the proximal colon and mtngw-hh-xmkhullr amount of retained stool in the distal [...] 3. No MR signs of osteomyelitis. 4. Pbww-gb-errzfhvu mid/hindfoot osteoarthritis. 5. Remote sprains of the ATFL and deep fibers of the deltoid ligament, as above. MPH/[facility] Workstation ID: [id number] XR Foot Left 3+ [...] Progress Inpatient Follow-up 11/16/2020 Braeden Conte DPM [facility] Patient: More Kingsley Jr. Date of [...] 33.21 kg/m Laboratory and Additional Data Reviewed: Reviewed:[id number]} * Chuyita Arias MD - 11/16/2020 11:26 AM EST [facility] Medicine Inpatient H&P 11/16/2020 Chuyita Arias MD [facility] Patient: More Kingsley Jr. Date of : 1965 (55 y.o.) PCP: Cheng Staples, DETAIL DRAFTER Assessment More Kingsley is a 54 y.o. [...] retained stool in the proximal colon and dvicn-uz-kigcfrib amount of retained stool in the distal [...] More Kingsley Jr. Admit Date: MR #: [id number] : 1965 Physicians: Cheng Staples CNP (Family); No ref. provider found (Referring) Assessment: Patient with 1. Left foot abscess, with MSSA 2. Osteomyelitis with MSSA 3. Uncontrolled diabetes. 4. Abdominal pain. Plan. Continue patient on current therapyn. Continue patient on IV cefazolin. I reviewed labs, including cultures, with MSSA, and be strep. I appreciate parking lot spotter evaluation. Patient needs incision and drainage of left foot abscess Dressing according to parking lot spotter recommendation Endocrinology evaluation for adequate blood sugar [...] (NS), 0-150 mL/hr, Intravenous, PRN, Tanja Whitmore, [facility],PharmD, New Bag at 11/11/20 1615 PMH/PSH// [...] retained stool in the proximal colon and kxsfn-bp-pmkivlqp amount of retained stool in the distal [...] No tendon tear or tenosynovitis is seen. MPH/[employer] Workstation ID: [id number] MR Foot Right With And Without Contrast Final Result 1. Prior forefoot resection. Cellulitis of the surgical stump is seen associated with small ulceration. 2. No abscess. 3. No MR signs of osteomyelitis. 4. Dsry-nx-mvfmumry mid/hindfoot osteoarthritis. 5. Remote sprains of the ATFL and deep fibers of the deltoid ligament, as above. MPH/[employer] Workstation ID: [id number] XR Foot Left 3+ [...] Progress Inpatient Follow-up 11/15/2020 Braeden Conte DPM [facility] Patient: More Kingsley Jr. Date of [...] antibiotics. Patient sees Dr. Eric Stephenson his parking lot spotter at [facility] ([phone]) for wound care normally. Patient would like [...] to his home which is [place]. Patient denies nausea vomiting fevers or chills [...] 33.21 kg/m Laboratory and Additional Data Reviewed: Reviewed:[id number]} * Chuyita Arias MD - 11/15/2020 11:19 AM EST [facility] Medicine Inpatient H&P 11/15/2020 Chuyita Arias MD [facility] Patient: More Kingsley . Date of : 1965 (55 y.o.) PCP: Cheng Staples, DETAIL DRAFTER Assessment More Kingsley is a 54 y.o. [...] More Kingsley Jr. Admit Date: MR #: [id number] : 1965 Physicians: Cheng Staples CNP (Family); No ref. provider found (Referring) Assessment: Patient with 1. Left foot abscess, with MSSA 2. Osteomyelitis with MSSA 3. Uncontrolled diabetes. Plan. Continue patient on current therapyn. Continue patient on IV cefazolin. I reviewed labs, including cultures, with MSSA, and be strep. I appreciate parking lot spotter evaluation. Patient needs incision and drainage of left foot abscess Dressing according to parking lot spotter recommendation Endocrinology evaluation for adequate blood sugar [...] (NS), 0-150 mL/hr, Intravenous, PRN, Tanja Whitmore, [facility],PharmD, New Bag at 11/11/20 1615 PMH/PSH/SH/ [...] excoriations Musculoskeletal: No joint swelling, non tender REGIONAL TELECOMMUNICATIONS SPECIALIST: Awake, and Ox3 Wound: Foot with description [...] No tendon tear or tenosynovitis is seen. MPH/[employer] Workstation ID: [id number] MR Foot Right With And Without Contrast Final Result 1. Prior forefoot resection. Cellulitis of the surgical stump is seen associated with small ulceration. 2. No abscess. 3. No MR signs of osteomyelitis. 4. Drkf-gm-qsnjgujl mid/hindfoot osteoarthritis. 5. Remote sprains of the ATFL and deep fibers of the deltoid ligament, as above. MPH[employer] Workstation ID: [id number] XR Foot Left 3+ [...] foot after Dr Cherry had reported to [facility] pt can heel WB only through R [...] . Prior Level of Function Level of Florence: Independent with ADLs and functional transfers Lives [...] Arias MD - 11/14/2020 10:45 AM EST [facility] Medicine Inpatient H&P 11/14/2020 Chuyita Arias MD [facility] Patient: More Kingsley Jr. Date of [...] Progress Inpatient Follow-up 11/14/2020 Ryan Conte DPM [facility] Patient: More Kingsley Jr. 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 [place] on the wound VAC was approximately a [...] 33.21 kg/m Laboratory and Additional Data Reviewed: Reviewed:[id number]} * Nam Briggs PA-C - 11/14/2020 9:54 AM EST Patient ID: Patient Name: More Kingsley Jr. Admit Date: 11/05/2020 MR #: [id number] : 1965 [place] [facility] [place] [facility] [place] Physicians: Cheng Staples CNP (Family); Dr. Pinedo [...] CPM 11/14: Continue current insulin doses. Consult academic assistant for gastroparesis diet education. 2. Education: Reviewed [...] CHANGE; Surgeon: Leanne Cherry DPM; Location: [place]; Service: Podiatry HAND SURGERY Left WOUND VAC [...] you. Electronically signed by: Nam Briggs PA-C, [facility] 11/14/20 9:55 AM * Marcella Bell MD - 11/13/2020 8:26 PM EST Patient Name: More Kingsley Jr. Admit Date: MR #: [id number] : 1965 Physicians: Cheng Staples, ROSALIA (Family); No ref. provider found (Referring) Assessment: Patient with 1. Left foot abscess, with MSSA 2. Suspicion for osteomyelitis 3. Uncontrolled diabetes. Plan. Continue patient on current therapyn. Continue patient on IV cefazolin. I reviewed labs, including cultures, with MSSA, and be strep. I appreciate parking lot spotter evaluation. Patient needs incision and drainage of left foot abscess Dressing according to parking lot spotter recommendation Endocrinology evaluation for adequate blood sugar [...] (HumaLOG) injection 0-30 Units, 0-30 Units, Subcutaneous, [facility], Marvel Mcmillan MD, 3 Units at 11/10/20 [...] (NS), 0-150 mL/hr, Intravenous, PRN, Tanja Whitmore, [facility],PharmD, New Bag at 11/11/20 1615 PMH/PSH/SH/ [...] excoriations Musculoskeletal: No joint swelling, non tender REGIONAL TELECOMMUNICATIONS SPECIALIST: Awake, and Ox3 Wound: Foot with description [...] No tendon tear or tenosynovitis is seen. MPH/[employer] Workstation ID: [id number] MR Foot Right With And Without Contrast Final Result 1. Prior forefoot resection. Cellulitis of the surgical stump is seen associated with small ulceration. 2. No abscess. 3. No MR signs of osteomyelitis. 4. Bwqf-gg-xqhbgikj mid/hindfoot osteoarthritis. 5. Remote sprains of the ATFL and deep fibers of the deltoid ligament, as above. [employer] Workstation ID: [id number] XR Foot Left 3+ [...] Arias MD - 11/13/2020 11:32 AM EST [facility] Medicine Inpatient H&P 11/13/2020 Chuyita Arias MD [facility] Patient: More Kingsley Jr. Date of : 1965 (55 y.o.) PCP: Cheng Staples, DETAIL DRAFTER Assessment More Kingsley is a 54 y.o. [...] Kingsley Jr. Admit Date: 11/05/2020 MR #: [id number] : 1965 [place] [facility] [place] [facility] [place] Physicians: Cheng Staples CNP (Family); Dr. Pinedo [...] present. Principal Problem: Secondary DM with DKA ([facility]) Active Problems: Type 2 diabetes mellitus with retinopathy of both eyes, with long-term current use of insulin ([facility]) * Marcella Bell MD - 11/12/2020 2:05 PM EST Patient Name: More Kingsley Jr. Admit Date: MR #: [id number] : 1965 Physicians: Cheng Staples CNP (Family); No ref. provider found (Referring) Assessment: Patient with 1. Left foot abscess, with MSSA 2. Suspicion for osteomyelitis 3. Uncontrolled diabetes. Plan. Continue patient on current therapyn. Continue patient on IV cefazolin. I reviewed labs, including cultures, with MSSA, and be strep. I appreciate parking lot spotter evaluation. Patient needs incision and drainage of left foot abscess I reviewed MRI of the foot, with Extensive cellulitis, and concern for septic arthroplathy and osteomyelitis of the left foot Dressing according to parking lot spotter recommendation Endocrinology evaluation for adequate blood sugar [...] (NS), 0-150 mL/hr, Intravenous, PRN, Tanja Whitmore, [facility],PharmD, New Bag at 11/11/20 1615 PMH/PSH/SH/ [...] excoriations Musculoskeletal: No joint swelling, non tender REGIONAL TELECOMMUNICATIONS SPECIALIST: Awake, and Ox3 Wound: Foot with description [...] No tendon tear or tenosynovitis is seen. MPH/[employer] Workstation ID: [id number] MR Foot Right With And Without Contrast Final Result 1. Prior forefoot resection. Cellulitis of the surgical stump is seen associated with small ulceration. 2. No abscess. 3. No MR signs of osteomyelitis. 4. Miwn-zk-uqakezfc mid/hindfoot osteoarthritis. 5. Remote sprains of the ATFL and deep fibers of the deltoid ligament, as above. [employer] Workstation ID: [id number] XR Foot Left 3+ [...] Arias MD - 11/12/2020 11:38 AM EST [facility] Medicine Inpatient H&P 11/12/2020 Chuyita Arias MD [facility] Patient: oMre Kingsley Jr. Date of : 1965 (55 y.o.) PCP: Cheng Staples, DETAIL DRAFTER Assessment More Kingsley is a 54 y.o. [...] IMAGING: Reviewed 11:38 AM * Iliana Aggarwal, OLIVER FILTER OPERATOR - 11/12/2020 10:25 AM EST Physical [...] Stand: Min Stand Pivot Transfers: Contact guard Station Engineer Main Line: Wheeled walker Skilled Intervention: Pt required vc for hand placement and for adherence to nwb status once standing. Pt able to take 3-4 small hops to pivot from bed to chair. Exercise Ankle Pumps: x15 RLE Straight Leg Raise: x15 doc Heelslides: x15 doc Hip Abduction: x15 dco Short Arc Quad: x15 dco Skilled Intervention: Vc provided for proper tech with therex to improve functional strength. Home Living Type of Home: House Home Layout: One level, Stairs to enter with rails Bathroom Shower/Tub: Tub/shower unit Bathroom Toilet: Standard(Low toilet per pt.) Home Equipment: (Crutches) Additional Comments: Pt prefers to be called Carlitos . Prior Level of Function Level of Florence: Independent with ADLs and functional transfers Lives [...] . Prior Level of Function Level of Florence: Independent with ADLs and functional transfers Lives [...] Kingsley Jr. Admit Date: 11/05/2020 MR #: [id number] : 1965 [place] [facility] [place] [facility] [place] Physicians: Cheng Staples CNP (Family); Dr. Pinedo [...] More Kingsley Jr. Admit Date: MR #: [id number] : 1965 Physicians: Cheng Staples CNP (Family); No ref. provider found (Referring) Assessment: Patient with 1. Left foot abscess 2. Suspicion for osteomyelitis 3. Uncontrolled diabetes. Plan. Continue patient on current therapyn. Continue patient on IV cefazolin. I reviewed labs, including cultures, with MSSA, and be strep. I appreciate parking lot spotter evaluation. Patient needs incision and drainage of left foot abscess I reviewed MRI of the foot, with Extensive cellulitis, and concern for septic arthroplathy and osteomyelitis of the left foot Dressing according to parking lot spotter recommendation Endocrinology evaluation for adequate blood sugar [...] (NS), 0-150 mL/hr, Intravenous, PRN, Tanja Whitmore, [facility],PharmD PMH/PSH/SH/ reviewed, no change : Review [...] excoriations Musculoskeletal: No joint swelling, non tender REGIONAL TELECOMMUNICATIONS SPECIALIST: Awake, and Ox3 Wound: Foot with description [...] No tendon tear or tenosynovitis is seen. [employer] Workstation ID: [id number] MR Foot Right With And Without Contrast Final Result 1. Prior forefoot resection. Cellulitis of the surgical stump is seen associated with small ulceration. 2. No abscess. 3. No MR signs of osteomyelitis. 4. Ciur-ll-pwnyusjr mid/hindfoot osteoarthritis. 5. Remote sprains of the ATFL and deep fibers of the deltoid ligament, as above. MPH[employer] Workstation ID: [id number] XR Foot Left 3+ [...] Arias MD - 11/11/2020 12:06 PM EST [facility] Medicine Inpatient H&P 11/11/2020 Chuyita Arias MD [facility] Patient: More Kingsley Jr. Date of : 1965 (55 y.o.) PCP: Cheng Staples, DETAIL DRAFTER Assessment More Kingsley is a 54 y.o. [...] Kingsley Jr. Admit Date: 11/05/2020 MR #: [id number] : 1965 Current [place] [facility] [place] [facility] [place] Physicians: Cheng Staples CNP (Family); Dr. Pinedo [...] you. Electronically signed by: Nam Briggs PA-C, [facility] 11/11/20 10:50 AM * Slyfarnaz Tricia, OLIVER FILTER OPERATOR - 11/11/2020 8:43 AM EST Physical Therapy [...] TE) HEP educated for DOC LE therex: 0z92-55 reps In each direction to improve ms and carryover of improved mobility. Print out provided as well. Pt verbally agrees to perform most as long as no back pain. Home Living Type of Home: House Home Layout: One level, Stairs to enter with rails(5 BRINDA, B HR) Prior Level of Function Level of Florence: Independent with ADLs and functional transfers Lives [...] Progress Inpatient Follow-up 2020 Leanne Cherry DPM [facility] Patient: More Kingsley . Date of [...] calf pain. Laboratory and Additional Data Reviewed: Reviewed:[id number]} * Marcella Bell MD - 2020 2:47 PM EST Patient Name: More Kingsley Jr. Admit Date: MR #: [id number] : 1965 Physicians: Cheng Staples CNP (Family); No ref. provider found (Referring) Assessment: Patient with 1. Left foot abscess 2. Suspicion for osteomyelitis 3. Uncontrolled diabetes. Plan. Continue patient on current therapyn. Continue patient on IV cefazolin. I reviewed labs, including cultures, with MSSA, and be strep. I appreciate parking lot spotter evaluation. Patient needs incision and drainage of left foot abscess I reviewed MRI of the foot, with Extensive cellulitis, and concern for septic arthroplathy and osteomyelitis of the left foot Dressing according to parking lot spotter recommendation Endocrinology evaluation for adequate blood sugar [...] injection 5,000 Units, 5,000 Units, Subcutaneous, Q8H [facility], Chuyita Arias MD, 5,000 Units at 11/10/20 1402 [START ON 11/11/2020] insulin glargine (LANTUS) injection 25 Units, 25 Units, Subcutaneous, QAM, Marvel Mcmillan MD insulin glargine (LANTUS) injection 25 Units, 25 Units, Subcutaneous, Nightly, Marvel Mcmillan MD insulin lispro (HumaLOG) injection 0-15 Units, 0-15 Units, Subcutaneous, at bedtime, Jack Hair, DETAIL DRAFTER, 2 Units at 11/06/20 2105 insulin lispro (HumaLOG) injection 0-30 Units, 0-30 Units, Subcutaneous, QAM AC, Marvel Mcmillan MD, 3 Units at 11/10/20 1048 insulin lispro (HumaLOG) injection 0-30 Units, 0-30 Units, Subcutaneous, Daily before lunch, Marvel Mcmilaln MD, 6 Units at 11/10/20 1353 insulin [...] (NS), 0-150 mL/hr, Intravenous, PRN, Tanja Whitmore, [facility],PharmD PMH/PSH/SH/FH reviewed, no change : Review of [...] excoriations Musculoskeletal: No joint swelling, non tender REGIONAL TELECOMMUNICATIONS SPECIALIST: Awake, and Ox3 Wound: Foot with description [...] No tendon tear or tenosynovitis is seen. MPH/[employer] Workstation ID: [id number] MR Foot Right With And Without Contrast Final Result 1. Prior forefoot resection. Cellulitis of the surgical stump is seen associated with small ulceration. 2. No abscess. 3. No MR signs of osteomyelitis. 4. Cdtn-bp-spdgliaa mid/hindfoot osteoarthritis. 5. Remote sprains of the ATFL and deep fibers of the deltoid ligament, as above. M[employer] Workstation ID: [id number] Foot Left 3+ [...] Arias MD - 2020 11:19 AM EST [facility] Medicine Inpatient H&P 2020 Chuyita Arias MD [facility] Patient: More Kingsley Jr. Date of : 1965 (55 y.o.) PCP: Cheng Staples, DETAIL DRAFTER Assessment More Kingsley is a 54 y.o. [...] More Kingsley Jr. Admit Date: MR #: [id number] : 1965 Physicians: Cheng Staples CNP (Family); No ref. provider found (Referring) Assessment: Patient with 1. Left foot abscess 2. Suspicion for osteomyelitis 3. Uncontrolled diabetes. Plan. Continue patient on current therapyn. Continue patient on IV cefazolin. I reviewed labs, including cultures, with MSSA, and be strep. I appreciate parking lot spotter evaluation. Patient needs incision and drainage of left foot abscess I reviewed MRI of the foot, with Extensive cellulitis, and concern for septic arthroplathy and osteomyelitis of the left foot Dressing according to parking lot spotter recommendation Endocrinology evaluation for adequate blood sugar [...] 0-30 Units, Subcutaneous, Before dinner, Jack Coffey DETAIL DRAFTER, 3 Units at 11/09/20 1826 ipratropium-albuteroL (DUO-NEB) [...] (NS), 0-150 mL/hr, Intravenous, PRN, Tanja Whitmore, [facility],PharmD PMH/PSH/SH/ reviewed, no change : Review [...] excoriations Musculoskeletal: No joint swelling, non tender REGIONAL TELECOMMUNICATIONS SPECIALIST: Awake, and Ox3 Wound: Foot with description [...] No tendon tear or tenosynovitis is seen. [employer] Workstation ID: [id number] MR Foot Right With And Without Contrast Final Result 1. Prior forefoot resection. Cellulitis of the surgical stump is seen associated with small ulceration. 2. No abscess. 3. No MR signs of osteomyelitis. 4. Mpye-tg-kztjybca mid/hindfoot osteoarthritis. 5. Remote sprains of the ATFL and deep fibers of the deltoid ligament, as above. [employer] Workstation ID: [id number] XR Foot Left 3+ [...] Progress Inpatient Follow-up 11/09/2020 Leanne Cherry DPM [facility] Patient: More Kingsley Jr. Date of [...] calf pain. Laboratory and Additional Data Reviewed: Reviewed:[id number]} * Chuyita Arias MD - 11/09/2020 11:50 AM EST Hospital Medicine Inpatient H&P 11/09/2020 Chuyita Arias MD [facility] Patient: More Kingsley Jr. Date of [...] Kingsley Jr. Admit Date: 11/05/2020 MR #: [id number] : 1965 [place] [facility] [place] Physicians: Cheng Staples CNP (Family); Dr. Pinedo [...] More Kingsley Jr. Admit Date: MR #: [id number] : 1965 Physicians: Cheng Staples CNP (Family); No ref. provider found (Referring) Assessment: Patient with 1. Left foot abscess 2. Suspicion for osteomyelitis 3. Uncontrolled diabetes. Plan. Continue patient on current therapy Okay to DC IV vancomycin Okay to DC IV Zosyn. Start patient on IV cefazolin. I reviewed labs, including cultures, with MSSA, and be strep. I appreciate parking lot spotter evaluation. Patient needs incision and drainage of left foot abscess I reviewed MRI of the foot, with Extensive cellulitis, and concern for septic arthroplathy and osteomyelitis of the left foot Dressing according to parking lot spotter recommendation Endocrinology evaluation for adequate blood sugar [...] (NS), 0-150 mL/hr, Intravenous, PRN, Tanja Whitmore, [facility],PharmD PMH/PSH/SH/ reviewed, no change : Review [...] excoriations Musculoskeletal: No joint swelling, non tender REGIONAL TELECOMMUNICATIONS SPECIALIST: Awake, and Ox3 Wound: Foot with description [...] No tendon tear or tenosynovitis is seen. MPH/[employer] Workstation ID: [id number] MR Foot Right With And Without Contrast Final Result 1. Prior forefoot resection. Cellulitis of the surgical stump is seen associated with small ulceration. 2. No abscess. 3. No MR signs of osteomyelitis. 4. Fllz-pe-awtifzhv mid/hindfoot osteoarthritis. 5. Remote sprains of the ATFL and deep fibers of the deltoid ligament, as above. [employer] Workstation ID: [id number] Foot Left 3+ [...] Endocrine * (Principal) Secondary DM with DKA ([facility]) Relevant Medications insulin glargine (LANTUS) 100 unit/mL [...] Arias MD - 11/08/2020 12:13 PM EST [facility] Medicine Inpatient H&P 11/08/2020 Chuyita Arias MD [facility] Patient: More Kingsley Jr. Date of : 1965 (54 y.o.) PCP: Cheng Staples, DETAIL DRAFTER Assessment More Kingsley is a 54 y.o. [...] Kingsley Jr. Admit Date: 11/05/2020 MR #: [id number] : 1965 [place] [facility] [place] Physicians: Cheng Staples CNP (Family); Dr. Pinedo [...] Progress Inpatient Follow-up 11/08/2020 Ryan Conte DPM [facility] Patient: More Kingsley . Date of [...] calf pain. Laboratory and Additional Data Reviewed: Reviewed:[id number]} * Marcella Bell MD - 11/07/2020 7:38 PM EST Patient Name: More Kingsley Jr. Admit Date: MR #: [id number] : 1965 Physicians: Cheng Staples CNP (Family); No ref. provider found (Referring) Assessment: Patient with 1. Left foot abscess 2. Suspicion for osteomyelitis 3. Uncontrolled diabetes. Plan. Continue patient on current therapy Okay to DC IV vancomycin Okay to DC IV Zosyn. Start patient on IV cefazolin. I reviewed labs, including cultures, with MSSA, and be strep. I appreciate parking lot spotter evaluation. Patient needs incision and drainage of left foot abscess I reviewed MRI of the foot, with Extensive cellulitis, and concern for septic arthroplathy and osteomyelitis of the left foot Dressing according to parking lot spotter recommendation Endocrinology evaluation for adequate blood sugar [...] excoriations Musculoskeletal: No joint swelling, non tender REGIONAL TELECOMMUNICATIONS SPECIALIST: Awake, and Ox3 Wound: Foot with description [...] 3. No MR signs of osteomyelitis. 4. Fdrr-fl-lojqfwfu mid/hindfoot osteoarthritis. 5. Remote sprains of the [...] Inpatient Progress Note 11/07/2020 Leanne Cherry DPM [facility] Patient: More Kingsley Jr. Date of [...] Farley MD - 11/07/2020 11:01 AM EST [facility] Medicine Inpatient H&P 11/07/2020 Jean Farley MD [facility] Patient: More Kingsley Jr. Date of : 1965 (54 y.o.) PCP: Cheng Staples, DETAIL DRAFTER Assessment More Kingsley is a 54 y.o. [...] Kingsley Jr. Admit Date: 11/05/2020 MR #: [id number] : 1965 [place] [facility] [place] Physicians: Cheng Staples CNP (Family); Dr. Pinedo [...] you. Marvel Mcmillan MD * Rafat Miller, [facility],PharmD - 11/07/2020 8:06 AM EST PHARMACOTHERAPY [...] 11/05/20 105 kg (231 lb 7.7 oz) [place] body weight: 73 kg (160 lb 15 [...] seen Pharmacist: Rafat Miller RPh,PharmD Contact Number: [phone] * Jean Farley MD - 11/06/2020 9:18 AM EST [facility] Medicine Inpatient H&P 11/06/2020 Jean Farley MD [facility] Patient: More Kingsley Date of : 1965 (54 y.o.) PCP: Cheng Staples, DETAIL DRAFTER Assessment More Kingsley is a 54 y.o. [...] 11/05/20 105 kg (231 lb 7.7 oz) [place] body weight: 73 kg (160 lb 15 [...] pending Pharmacist: Jose Read RPh,PharmD Contact Number: [phone] documented in this encounter* Phu Buck RN - 11/20/2020 8:44 AM EST 11/20/2020 Call from Frances in [facility] this am confirming that pt is out of service area for [facility] andPharmacy. This RN had notified CM team of same on 11/19. Patient lives in [place], [place] so CM sendingreferral to [facility]. [facility] and IV Infusion: Pt lives outside of the [facility] area for both Home Health and Pharmacy. documented in this encounter* Monica Jalloh RN - 12/19/2020 2:30 PM EST Nurse wore gloves and mask while taking care of patient. Patient wearing mask at all times while staff in the room. * Marcella Bell MD - 12/19/2020 2:21 PM EST Patient Name: More Kingsley Jr. Admit Date: MR #: [id number] : 1965 Physicians: Cheng Staples CNP (Family); [...] MSSA, and be strep. Dressing according to parking lot spotter recommendation Endocrinology evaluation for adequate blood sugar [...] cultures, bone culture with no growth. Follow-up parking lot spotter. I reviewed CBC, and C-reactive protein with 10.9 kidneys BUN and creatinine 9 and 0.72 Follow-up in 3 weeks. Okay with surgical shoe. Subjective: Patient is being reevaluated again today, he was followed in [facility] in the month of October 2020, at that time he had presented with left foot swelling and redness and alsowith some draining pus. He was evaluated and found with abscess of the left foot, and osteomyelitis. Patient then had parking lot spotter debridement and drainage. Wound culture then had [...] excoriations Musculoskeletal: No joint swelling, non tender REGIONAL TELECOMMUNICATIONS SPECIALIST: Awake, and Ox3 PICC line in place. [...] and PT pulses nonpalpable secondary to edema. LEARNING DISABLED TEACHER is brisk to distal digits. Gross sensation [...] More Kingsley Jr. Admit Date: MR #: [id number] : 1965 Physicians: Cheng Staples CNP (Family); No ref. provider found (Referring) Assessment: Patient with 1. Left foot abscess, with MSSA 2. Osteomyelitis with MSSA 3. Uncontrolled diabetes. 4. Abdominal pain. 5. Constipation. Plan. Continue patient on current therapy. Status post IV cefazolin. Had antibiotics for more than 8 weeks. I reviewed labs, including cultures, with MSSA, and be strep. Dressing according to parking lot spotter recommendation Endocrinology evaluation for adequate blood sugar control We will continue to follow with you. Status post debridement. Reviewed previous bone cultures with MSSA. I reviewed labs. I reviewed CT scan of the abdomen and pelvis, with moderate large amount of retained stool in the proximal colon. Status post incision and drainage of the left ankle foot. Follow-up parking lot spotter. Follow-up in 3 to 4 weeks. I reviewed bone biopsy on december with no growth I discussed with the parking lot spotter on management plan. Dr. Cherry, scheduling for reconstruction of the left foot. Okay to switch to p.o. Keflex for the next 2 weeks. Okay to DC PICC line. Follow-up x-ray of the left foot. Subjective: Patient is being reevaluated again today, he was followed in [facility] in the month of October 2020, at that time he had presented with left foot swelling and redness and alsowith some draining pus. He was evaluated and found with abscess of the left foot, and osteomyelitis. Patient then had parking lot spotter debridement and drainage. Wound culture then had [...] the left Charcot foot area by the parking lot spotter. He is not complaining of any new [...] excoriations Musculoskeletal: No joint swelling, non tender REGIONAL TELECOMMUNICATIONS SPECIALIST: Awake, and Ox3 PICC line in place. [...] and PT pulses nonpalpable secondary to edema. LEARNING DISABLED TEACHER is brisk to distal digits. Gross sensation [...] with transportation. Patient has been driving from [facility], which takes him 1.5 hours. Patient [...] More Kingsley Jr. Admit Date: MR #: [id number] : 1965 Physicians: Cheng Staples CNP (Family); Leanne Cehrry DPM (Referring) Assessment: 1. Left foot abscess, [...] on tissue exam 11/18/20 Dressing according to parking lot spotter recommendation - currently with VAC dressing Status post debridement, I&D Follow up bone biopsy and wound culture 12/27/20 with no growth Continue working on blood sugar control (last A1c 8.2) Dietitian Therapeutic Dr. Cherry planning reconstruction of the left [...] wound clinic today, also coming to see parking lot spotter. There is someincreased swelling to the base [...] excoriations Musculoskeletal: No joint swelling, non tender REGIONAL TELECOMMUNICATIONS SPECIALIST: Awake, and Ox3 Wound: 3/5 . ---> [...] More Kingsley Jr. Admit Date: MR #: [id number] : 1965 Physicians: Cheng Staples CNP (Family); [...] drainage of the left ankle foot. Follow-up parking lot spotter. Follow-up in 3 to 4 weeks. I [...] was noted. Patient scheduled to see the parking lot spotter Dr. Waller on second opinion, suggest been recommended for constructive foot surgery.. Subjective: Patient is being reevaluated again today, he was followed in [facility] in the month of October 2020, at that time he had presented with left foot swelling and redness and alsowith some draining pus. He was evaluated and found with abscess of the left foot, and osteomyelitis. Patient then had parking lot spotter debridement and drainage. Wound culture then had [...] the left Charcot foot area by the parking lot spotter. He is not complaining of any new [...] excoriations Musculoskeletal: No joint swelling, non tender REGIONAL TELECOMMUNICATIONS SPECIALIST: Awake, and Ox3 Off PICC line Wound: [...] over CT Scan; [place] [facility] [place] 12[place] 10:38am Additional Source Comments (unrecognized sect ion and content) No Status Records FoundNo Status Records FoundNo Status Records FoundNo Status Records FoundNo Status Records FoundNo Status Records FoundNo Status Records FoundNo Status Records FoundNo Status Records FoundNo Status Records FoundNo Status Records FoundNo Status Records Found INFORMATION SOURCE (unrecogn ized section and content) DATE CREATED AUTHOR 01/10/2019 [facility] DATE CREATED AUTHOR AUTHOR'S ORGANIZ ATION 11/21/2020 [facility] DATE CREATED AUTHOR AUTHOR'S ORGANIZ ATION 02/07/2021 [facility] DATE CREATED AUTHOR AUTHOR'S ORGANIZ ATION 02/11/2021 [facility] DATE CREATED AUTHOR AUTHOR'S ORGANIZ ATION 04/04/2021 [facility] DATE CREATED AUTHOR AUTHOR'S ORGANIZ ATION 03/22/2023 [facility] DATE CREATED AUTHOR AUTHOR'S ORGANIZ ATION 03/13/2024 [facility] DATE CREATED AUTHOR AUTHOR'S ORGANIZ ATION 04/22/[address] [facility] DATE CREATED AUTHOR AUTHOR'S ORGANIZ ATION 05/20/2025 [facility] DATE CREATED AUTHOR AUTHOR'S ORGANIZ ATION 08/13/2025 [facility] DATE CREATED AUTHOR AUTHOR'S ORGANIZ ATION 08/27/2025 [facility] DATE CREATED AUTHOR AUTHOR'S ORGANIZ ATION 09/22/2025 [facility] Reason for Visit (unrecogniz ed section and content) ReasonCommentsWound CheckSpecialtyDiagnoses / ProceduresReferred By Contact Referred To ContactWound Care Diagnoses Visit for wound check Henry GRANT Martins-DETAIL DRAFTER [address] [place] [address] Phone: tel: fax: [facility] [address] [place] [address] Phone: tel: fax:[phone] Referral IDStatusReasonBaraga DateExpiration DateVisits RequestedVisits [id number] Review Specialty Services Required [id number]ofwepq / ProceduresReferred By ContactReferred To Contact Diagnoses Secondary DM with DKA (HCC) Left foot cellulitis; DKA ReasonCommentsCare Coordinator - Leon Yoon's office/request for office note ReasonCommentsCare CoordinationGastroparesis clinic: chart review; new patient callReasonCommentsWound CheckSpecialtyDiagnoses / ProceduresReferred By Contact Referred To ContactWound Care Diagnoses Visit for wound check Lakshmi Figueroa APRN-DETAIL DRAFTER [address] [place] [address] Phone: tel: fax: [facility] [address] [place] [address] Phone: tel: fax:[phone] Referral IDStatusasonBaraga DateExpiration DateVisits RequestedVisits [id number] Review Specialty Services Required [id number] CoordinationAppeal for GPOEM denialReason CommentsEstablish CareSpecialtyDiagnoses / ProceduresReferred By ContactReferred To ContactInternal Medicine Diagnoses Visit for wound check Hyperglycemia Lakshmi Figueroa, TRACK REPAIR SUPERVISOR-DETAIL DRAFTER [address] [place] [address] Phone: tel: fax: Vahe Solares MD [address] [place] [address] Phone: tel: fax: Referral IDStatusReasonStart DateExpiration DateVisits RequestedVisits [id number] Review Specialty Services Required [id number] CheckSpecialtyDiagnoses / Procedures Referred By ContactReferred To ContactWound Care Diagnoses Visit for wound check Lakshmi Figueroa TRACK REPAIR SUPERVISOR-DETAIL DRAFTER [address] [place] [address] Phone: tel: fax: [facility] [address] [place] [address] Phone: tel: fax: Referral IDStatusReasonStart DateExpiration DateVisits RequestedVisits [id number] Review Specialty Services Required [id number]zksn-cpRumm painReasonCommentsMed Change RequestReasonCommentsNew PatientSpecialtyDiagnoses / ProceduresReferred By ContactReferred To ContactGENERAL SURGERY Diagnoses Gastroparesis new gp consult/empties Procedures OFFICE/OUTPATIENT NEW HIGH MDM 60 MINUTES OFFICE/OUTPATIENT NEW MODERATE MDM 45 MINUTES OFFICE/OUTPATIENT NEW LOW MDM 30 MINUTES OFFICE/OUTPATIENT NEW SF MDM 15 MINUTES OFFICE/OUTPATIENT ESTABLISHED HIGH MDM 40 MIN NEW DDI PATIENT Tracy Yoon MD [address] [place] [address] Phone: tel: fax: Dolly Hyatt, PhD [address] [place] [address] Phone: tel: fax: Referral IDStatusReasonStart DateExpiration DateVisits RequestedVisits [id number]/7/202412/31/[id number] DateCommentsResults 05/22/2025ReasonCommentstransitonal care visitReasonOnset DateCommentsResults 07/17/20255315XjtyvtEhrmracjSomunx-puUujcvuBuyvyyneDfyvdl-qsInheytin/A1C/ Right foot wound Leanne Cherry DPM - 11/18/2020 12:30 PM EST H&P Notes (unrecognized sect ion and content) INTERVAL HISTORY AND PHYSICAL Patient Name: More Kingsley Jr. Admit Date: MR #: [id number] : 1965 The H&P has been reviewed and the patient has been examined. I concur with the findings of the H&P. There are no significant changes. It is appropriate to proceed with the planned procedure. Leanne Cherry DPM 11/18/2020 12:30 PM * Braeden Conte DPM - 11/17/2020 9:39 AM EST Progress Inpatient Follow-up 11/17/2020 Braeden Conte DPM [facility] Patient: More Kingsley JrFrankie Date of [...] 33.21 kg/m Laboratory and Additional Data Reviewed: Reviewed:[id number]} * Flako Pinedo MD - 11/05/2020 8:29 PM EST [facility] Medicine Inpatient H&P 11/05/2020 Flako Pinedo MD [facility] Patient: More Kingsley Date of : 1965 (54 y.o.) PCP: Cheng Staples, DETAIL DRAFTER Assessment More Kingsley is a 54 y.o. [...] EST Consult Notes (unrecognized section and content) Dermatologist And Dermatopathologist went with Dr. Kumar, parking lot spotter, to patient's room . Dr. Kumar removed remainder of black foam from tunnel at 11 oclock. Dermatologist And Dermatopathologist requested and received order change to white foam over bone and in tunnel areas, then black foam and negative pressure increased to 150mm/hg. Wound dressed per orders with 3 pieces total white foam, two pieces black foam to top. Negative pressure maintained and patient tolerated well. Patient dressing was attached to home vac at this time. Paperwork signed forvac by patient. Dermatologist And Dermatopathologist educated patient on charging, what to bring to future wound care appointments for dressing changes and all questions answered. * Monica Jalloh RN - 11/21/2020 7:48 AM EST Dermatologist And Dermatopathologist in to see patient for wound vac dressing change. Dermatologist And Dermatopathologist removed intact vac dressing as described to bond underwriter by Dr. Cherry. Dermatologist And Dermatopathologist removed one piece black foam from top of dressing. Dermatologist And Dermatopathologist removed one piece black foam packed from 9 oclock area over to undermining in 2-4 oclock area. Dermatologist And Dermatopathologist removed one piece black foam from 7 oclock area. There remains one piece black foam in 11 oclock area (toward medial ankle) that is adhered to tunneling and exposed bone and could not be removed intact. Dermatologist And Dermatopathologist placed ns moist gauze dressing temporarily until discusses with podiatry. * Rossana Caldwell RN - 11/19/2020 2:59 PM EST IV team consulted for PICC placement. Chart and history reviewed. PICC insertion explained to patient , agreed to procedure. Single lumen PICC inserted following [place] Protocol into cephalic vein. PICC trimmed at [...] deficit. The patient's home setup is a meeting facilitator, limitations of family / caregiver support is a barrier for return to prior level of function. The patient's education level is a meeting facilitator, awareness of own capacity and performance is a meeting facilitator to return to prior level of [...] foot unclear and OT to clarify with parking lot spotter post evaluation this date. Home Living Type of Home: House Home Layout: One level, Stairs to enter with rails Bathroom Shower/Tub: Tub/shower unit Bathroom Toilet: Standard(Low toilet per pt.) Home Equipment: (Crutches) Additional Comments: Pt prefers to be called Carlitos . Prior Level of Function Level of [place]: Independent with ADLs and functional transfers Lives [...] HR) Prior Level of Function Level of [place]: Independent with ADLs and functional transfers Lives [...] Jalloh RN - 11/08/2020 2:09 PM EST Dermatologist And Dermatopathologist in to see patient for wound vac [...] with patient in patient'sroom. Patient educated to social sciences research scientist role. Patient reports that he resides at [...] Patient Name: More Kingsley Jr. MR #: [id number] : 1965 Physicians: Cheng Staples CNP (Family); [...] file Gets together: Not on file Attends jainism service: Not on file Active member of [...] 15-20 maintain Follow-up labs, including cultures Follow-up parking lot spotter Patient needs incision and drainage of left foot abscess Consider MRI of the left foot Dressing according to parking lot spotter recommendation Endocrinology evaluation for adequate blood sugar [...] PM EST Associated Order(s): IP CONSULT TO HEALTH TECHNICIAN HEARING Met with pt for diabetes education. Pt [...] to feel like heis going to vomit. 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 He mentions often going to [employer] & ordering a double cheeseburger with a medium German macias and medium diet soda. Occasional milk [...] pharmacokinetics Continuous Infusions: lactated Ringers 100 mL/hr (11/05/20) Estimated Energy Needs Total Energy Estimated Needs: 1950 kcals/day Method for Estimating Needs: MSJ x 1.3AF -500 kcals/day to promote 1# weight loss/week Total Protein Estimated Needs: 81-97 gms/day Method for Estimating Needs: 1.0-1.2 gms/kg adjusted BW Blanca Miles RDN, LD Office * Braeden Cotne DPM - 11/06/2020 10:58 AM EST Podiatry Inpatient Consult 11/06/2020 Braeden Conte DPM [facility] Patient: More Kingsley Date of : [...] the last 2 weeks. Patient is from [facility] where he was transferred down here to be evaluated and treated. Patient lost his right forefoot 3 years ago due to infection. 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 History of Present Illness: More Kingsley is a 54 y.o. male presenting from [facility] with complaint of left midfoot abscess [...] More Kingsley Admit Date: 11/05/2020 MR #: [id number] : 1965 [place] [facility] [place] Physicians: Cheng Staples CNP (Family); Dr. Pinedo [...] * [facility] - Slyfarnaz Tricia, OLIVER FILTER OPERATOR - 11/19/2020 9:16 AM EST PHYSICAL THERAPY [...] (55 y.o.) Date of Service: 11/18/2020 CSN: [id number] Procedure(s): INCISION AND DRAINAGE FOOT/ANKLE with Application of Wound Vac Pre-Operative Diagnoses: * Abscess of left ankle Post-Operative Diagnoses: * Same as Pre-Op Diagnosis Surgeon(s) and Role: * Leanne Cherry DPM - Primary Anesthesiologist: Almas Gutierrez MD AIRPLANE NAVIGATOR: Kathrine Page CRNA Anesthesiologist Technologist Development: SUNDEEP Machado Traffic Checker: Kathrine Rice RN; Paola German RN Scrub [...] Odor None 11/18/20 0800 Wound Bed Characteristics [place] 11/17/20 0815 Debi-wound Assessment Brown;Scaly 11/16/20 0506 [...] (55 y.o.) Date of Service: 11/11/2020 CSN: [id number] Procedure(s): DEBRIDEMENT AND DRESSING CHANGE APPLICATION WOUND VAC Pre-Operative Diagnoses: * Abscess, left foot Post-Operative Diagnoses: * Same as Pre-Op Diagnosis Surgeon(s) and Role: * Leanne Cherry DPM - Primary Anesthesiologist: Javi Barriga MD AIRPLANE NAVIGATOR: Jasmine Gauthier CRNA Anesthesiologist Technologist Development: SUNDEEP Machado Traffic Checker: Kathrine Rice RN; Evie Hunt RN Scrub [...] Evie Rueda, TAMARAN, RN Clinical Documentation Improvement [facility] [phone] After business hours you may contact Arianna Hooks at [phone] (Weekdays until 10 PM and weekends 8 [...] Jonny Zhu MD [address] [place] [id number] [facility] - [facility]24 Cheng Staples NP [address] [place] [phone] [facility]07/23/23 Cheng Staples NP [address] [place] [address] Nurse [facility]01/06/24 Team Status: Inactive Member Role Status Dates [...] 12, 2024Team MemberRelationshipSpecialtyStart DateEnd Date Cheng Staples APRN-DETAIL DRAFTER PCP - GeneralNurse Practitioner03/05/25Team MemberRelationshipSpecialtyStart Date End Date Cheng Staples APRN-CNP PCP - GeneralNurse Practitioner03/05/25Team MemberRelationshipSpecialtyStart Date End Date Art Freeman DO [address] [facility], [address] [place] [address] PCP - GeneralFamily Medicine04/26/25Team MemberRelationshipSpecialtyStart DateEnd Date Cheng Staples, TRACK REPAIR SUPERVISOR-DETAIL DRAFTER PCP - GeneralNurse Practitioner03/05/25Team MemberRelationshipSpecialtyStart Date End Date Art Freeman DO [address] [facility], [address] [place] [address] [facility]CP - [facility]04/26/25Team MemberRelationshipSpecialtyStart DateEnd Date Art Freeman DO [address] [facility], [facility] [address] [place] [address] PCP - Generalmily Medicine04/26/25Team MemberRelationshipSpecialtyStart DateEnd Date Art Freeman DO [address] [facility], [facility] [address] [place] [address] PCP - Generalmily Medicine04/26/25Team MemberRelationshipSpecialtyStart DateEnd Date Art Freeman DO [address] [facility] [address] [place] [address] PCP - Generalmily Medicine04/26/25 Team Status: Inactive Member Role Status Dates Cheng Staples Primary Care Provider Active Sta rt: June 28, 2025 End: June 28, 2025Cathy Ramirez AVIONICS ELECTRICAL ENGINEER-CAttending ProviderActiveStart: June 28, 2025 End: June 28, [...] MemberRelationshipSpecialtyStart DateEnd Date Art Freeman DO [address] [facility], [facility] [address] [place] [address] PCP - GeneralFamily Medicine04/26/25Team MemberRelationshipSpecialtyStart DateEnd Date Art Freeman DO [address] [facility], [place] [address] PCP - GeneralFamily Medicine04/26/25 Team Status: Active Member Role Status Dates NON STAFF Primary Care Provider Active Team Status: Inactive Member Role Status Dates Chan Quintanilla MD Attending Provider Active Start: July 09, 2025 End: July 09, 2025NON STAFFPrimary Care ProviderActiveStart: July 09, 2025 End: July 09, 2025Team MemberRelationshipSpecialtyStart DateEnd Date Art Freeman DO [address] [facility] [address] [place] [address] PCP - GeneralFamily Medicine04/26/25Team MemberRelationshipSpecialtyStart DateEnd Date Art Freeman DO [address] [facility] [address] [place] [address] PCP - GeneralFamily Medicine04/26/25Team MemberRelationshipSpecialtyStart DateEnd Date Art Freeman DO [address] [facility] [address] [place] [address] PCP - [facility] Medicine04/26/25Team MemberRelationshipSpecialtyStart DateEnd Date Art Freeman DO [address] [facility], [place] [address] PCP - [facility]04/26/25Team MemberRelationshipSpecialtyStart DateEnd Date Art Freeman, [address] [facility], [place] [address] PCP - [facility]04/26/25 Team Status: Inactive Member Role Status [...] MemberRelationshipSpecialtyStart DateEnd Date Art Freeman DO [address] [facility] [address] [place] [address] PCP - [facility]04/26/25 Team Status: Active Member Role/Relationship Status Dates NON STAFF Primary Care Provider Active Team Status: Inactive Member Role/Relationship Status Dates Cheng Staples , AVIONICS ELECTRICAL ENGINEER-C Primary Care Provider Active Start: June 28, 2025 End: June 28, 2025Rory Pardo ProviderActiveStart: June 28, 2025 End: June 28, 2025 Team Status: Inactive Member Role/Relationship Status Dates Cheng Staples AVIONICS ELECTRICAL ENGINEER-C Primary Care Provider Active Start: June 28, [...] MemberRelationshipSpecialtyStart DateEnd Date Art Freeman DO [address] [facility] [address] [place] [address] PCP - [facility]04/26/25 Goals (unrecognized section and content) Goals may be documented in a n alternate section Source Comments (unrecognize d section and content) In the event this informatio n is protected by the Federal Confidentiality of Alcohol and Drug Abuse Patient Records regulations: The Federal rules restrict any use of the information to criminally investigate or prosecute any alcohol or drug abuse patient.[facility] CenterIn the event this information is protected by the Federal Confidentiality of Alcohol and Drug Abuse Patient Records regulations: The Federal rules restrict any use of the information to criminally investigate or prosecute any alcohol or drug abuse patient.[facility] CenterIn the event this information is protected by the Federal Confidentiality of Alcohol and Drug Abuse Patient Records regulations: The Federal rules restrict any use of the information to criminally investigate or prosecute any alcohol or drug abuse patient.[facility] CenterIn the event this information is protected by the Federal Confidentiality of Alcohol and Drug Abuse Patient Records regulations: The Federal rules restrict any use of the information to criminally investigate or prosecute any alcohol or drug abuse patient.[facility] CenterIn the event this information is protected by the Federal Confidentiality of Alcohol and Drug Abuse Patient Records regulations: The Federal rules restrict any use of the information to criminally investigate or prosecute any alcohol or drug abuse patient.[facility] CenterIn the event this information is protected by the Federal Confidentiality of Alcohol and Drug Abuse Patient Records regulations: The Federal rules restrict any use of the information to criminally investigate or prosecute any alcohol or drug abuse patient.[facility] CenterIn the event this information is protected by the Federal Confidentiality of Alcohol and Drug Abuse Patient Records regulations: The Federal rules restrict any use of the information to criminally investigate or prosecute any alcohol or drug abuse patient.[facility] FOR RECORDS PERTAINING TO PATIENTS [...] BE BASED ON THE PRIMARY CLINICAL RECORDS. [facility]. provides no warranty or guarantee of the accuracy or completeness of information in this document.
== END 2025-10-08 14:11 | disposition home or self-care (01) ==
LOC: WC 14:10
PROVIDERS: PCP Family Medicine; Visit Provider Physician Assistant
DX: E11.621 Type 2 diabetes mellitus with foot ulcer (principal); L97.415 Non-pressure chronic ulcer of right heel and midfoot with muscle involvement without evidence of necrosis
CPT/HCPCS: 29445

== ENCOUNTER 2025-10-10 14:43 | Outpatient (OUT) | payer MEDICARE, SELFPAY ==
--- OUTSIDE RECORDS SUMMARY | 2025-10-10 14:54 | XMS_ITS | CCD ---
Author Organization [facility] Care Team Providers Care Doctor Chiropractic Name Role Phone JAVI FIGUEROA Admitting Unavailable [...] STAPLES Primary Care Unavailable DILIPLEANNERY Attending Unavailable DILIP, [...] Unavailable Iva Black Unavailable MapusSebastián Unavailable Bel FLY FINISHER, Cheng Unavailable Jonny Zhu MD Primary Care Provider Bel FLY FINISHER, Cheng Unavailable Cheng Staples Primary Care Provider Cheng Staples Attending Provider [phone] Cheng Staples Primary Care Provider [phone] MD Karrie Imnew Attending Provider [phone] CHENG STAPLES Attending Unavailable CHENG STAPLES Attending Unavailable CHENG STAPLES Attending Unavailable Cheng Staples Primary Care Provider [phone] MD Tracy Yoon Attending Provider [phone] Unavailable Primary Care Provider Unavailke Staples INTERVENTIONAL RADIOLOGY RN-Cheng LINDSEY Primary Care Provider ART FIGUEREDO Referring Unavailable Art Freeman DO Primary Care Provider ART FIGUEREDO Attending Unavailable ASAAD, IMAD Referring Unavailable JEROME DEL TORO Attending Unavailable ASAAD, IMAD Referring Unavailable COURTNEY GLOVER Attending Unavailable FIGUEREDO, ART S Referring Unavailable DAVIDA PRICE Attending Unavailable ASAAD, IMAD Referring Unavailable Aichholz, Cheng J Primary Care Provider [phone] Ashley EPSTEIN-CCathy Attending Provider Chan Quintanilla MD Attending Provider [phone] NON STAFF Primary Care Provider Unavailabl e [...] BADIK, ART D Primary Care Unavailable Aichholz FLY FINISHER-CCheng Primary Care Provider Cathy Hathaway Attending Provider Chan Quintanilla MD Other Provider Chan Quintanilla [...] to pollen; Translations: [hayfever]Propensity to adverse reactions (disorder)01-25-3988Biu [facility] (1 source)bee venomDrug allergy (disorder)[facility] (1 source)Honey bee venomPropensity to adverse lrsrjreyp82-87-3775PdrsndpzYJOM Healthcare (1 source)Bee pollenAllergy to iafenqgcr79-74-2945Prrnqpd [facility] (20 sources)bee venom protein (honey bee); Translations: [BEE VENOM PROTEIN (HONEY BEE)]Allergy to pnphqhiwa57-67-6093Ojses (See Comments)[facility] (8 sources)Venom-Honey Bee; Translations: [VENOM-HONEY BEE]Drug Allergy 96-21-9038Oqqjjlueaxg, Other: See Comments, [facility] Medications Current Medications MedicationDrug Class(es)DatesSig (Normalized)Sig (Original)amitriptyline hydrochloride 25 mg oral tablet (1 source)Tricyclic AntidepressantStart: 17-01-9819uefc 1 tablet by mouth every twenty-four hoursAmitriptyline HCl 25 MG 1 tablet at bedtime Orally Once a day for 30 days Nov, Activeamoxicillin 875 mg / clavulanate 125 mg oral tablet (15 sources)Penicillin-class AntibacterialStart: 08-27-2025 End: 45-25-5615pcnk 1 tablet by mouth once in the morningamoxicillin-pot clavulanate (AUGMENTIN) 875-125 mg per tablet Indications: Ulcer of right foot withfat layer exposed (CMS-HCC) Take 1 tablet by mouth in the morning and 1 tablet before bedtime. Do all this for 14 days. 28 tablet 08/27/2025 09/10/2025 ActiveStart: 08-10-2025 End: 70-07-9771oavk 1 tablet by mouth once in the [...] 28 tablet 08/10/2025 08/24/2025 ActiveStart: 07-09-2025 End: 59-45-5194aqes 1 tablet by mouth once dailyAmoxicillin-Pot Clavulanate 875- 125 mg tablet Discontinued 1 TAB PO Daily July 09, 2025 12:00amOct2024 10:44amStart: 06-22-2025 End: 60-26-2744brdd 1 tablet by mouth twice dailyamoxicillin-pot clavulanate (AUGMENTIN) 875-125 mg per tablet TAKE 1 TABLET BY MOUTH TWICE DAILY FOR 14 DAYS 06/22/2025 07/16/2025 Discontinued (Therapy completed)Start: 04-11-2025 End: 08-34-9611frnq 1 tablet by mouth once in the morningamoxicillin-pot clavulanate (AUGMENTIN) 875-125 mg per tablet Indications: Diabetic ulcer of right midfoot associated with type 2 diabetes mellitus, with muscle involvement without evidence of necrosis (CMS-HCC) Take 1 tablet by mouth in the morning and 1 tablet before bedtime. Do all this for 10 days. 20 tablet 04/11/2025 04/21/2025 ActiveStart: 03-28-2025 End: 33-27-8704gsoq 1 tablet by mouth once in the [...] sources)Platelet Aggregation Inhibitor, Nonsteroidal Anti-inflammatory Drug Start: 31-49-0545jfat 1 tablet by mouth once dailyAspirin 81 mg tablet Active 81 MG PO Daily 90 90 2 June 28, 2025 12:00am Complies with drug therapy atorvastatin 80 mg oral tablet (20 sources)HMG-CoA Reductase InhibitorStart: 08-10-2025 End: 21-57-0038hvmu 1 tablet by mouth once daily at breakfastatorvastatin (LIPITOR) 80 mg tablet Indications: hyperlipidemia Take 1 tablet (80 mg total) by mouth daily with breakfast for 360 days Indications: excessive fat in the blood. 90 tablet 3 08/10/2025 08/05/2026 ActiveStart: 01-18-2020 End: 67-51-3257ebsh 1 tablet by mouth once dailyAtorvastatin 40 mg tablet Discontinued 40 MG PO Daily January 18, 2020 1:00am September 120:44am Lipitor Activeblood-glucose meter kit (15 sources)Start: 36-19-0860cnpjt-glucose meter kit Indications: Type 2 diabetes mellitus with foot ulcer, with long-term current use of insulin ([facility]) Use as instructed 1 each 05/16/2025 Activecelecoxib 100 mg oral capsule (20 sources)Nonsteroidal Anti-inflammatory DrugStart: 05-10-2025 End: 96-95-3640yzjb 1 capsule by mouth in the morningcelecoxib (CeleBREX) 100 mg capsule Indications: Chronic midline low back pain without sciatica Take 1 capsule (100 mg total) by mouth in the morning. 30 capsule 2 08/10/2025 Active cephalexin 500 mg oral capsule (2 sources)Cephalosporin AntibacterialStart: 01-09-2021 End: 29-24-5487fezm 1 capsule by mouth three times dailycephALEXin (KEFLEX) 500 MG capsule Take 1 (one) capsule (500 mg total) by mouth 3 (three) times a day for 14 days . 42 capsule 0 01/09/2021 01/23/2021 Activecholecalciferol 0.125 mg oral capsule (20 sources)Vitamin DStart: 95-01-9989ckbq 1 capsule by mouth once daily Cholecalciferol (Vitamin D3) 125 mcg (5,000 unit) capsule Active 125 MCG PO Daily February 02, 2024 12:00am Complies with drug therapyStart: 84-85-6254lwsw 1 capsule by mouth in the morningcholecalciferol (Vitamin D-3) 25 MCG (1000 UT) capsule Take 1,000 Units by mouth in the morning. 0 01/04/2023 Activetake 1 capsule by mouth in the morningcholecalciferol, vitamin D3, 2,000 units capsule Take 1 capsule (2,000 Units total) by mouth in themorning. Activeclopidogrel 75 mg oral tablet (18 sources)P2Y12 Platelet InhibitorStart: 15-18-8224eqayyjxcoiL (PLAVIX) 75 mg tablet Take 1 tablet (75 mg total) by mouth. 06/29/2025 Activecollagenase 0.25 unt/mg topical ointment (13 sources)Collagen-specific EnzymeStart: 62-01-4920hejgkvjrqgc (SantyL) ointment Indications: Ulcer of right foot [...] 100 mg oral capsule (16 sources)Tetracycline-class DrugStart: 31-86-0643eaai 1 capsule by mouth twice dailydoxycycline (MONODOX) [...] oral tablet (20 sources)Thiazide DiureticStart: 06-19-2021 End: 06-02-7918lkfz 1 tablet by mouth once dailyhydroCHLOROthiazide (HYDRODIURIL) 12.5 mg tablet Indications: Benign essential HTN Take 1 tablet (12 .5 mg total) by mouth daily. 90 tablet 08/10/2025 Active3 ml insulin glargine 100 unt/ml pen injector (20 sources)Insulin AnalogStart: 65-12-1386jtkjutb glargine (LANTUS SOLOSTAR U- 100 INSULIN) 100 unit/mL (3 mL) insulin pen Indications: Type 2diabetes mellitus with foot ulcer, with long-term current use of insulin ([facility]) Inject 36 Units under the skin in the morning and at bedtime. 09/21/2025 ActiveStart: 08-10-2025 End: 65-78-3623keeibc 36 [IU] by subcutaneous injection in the morninginsulin glargine (LANTUS SOLOSTAR U-100 INSULIN) 100 unit/mL (3 mL) insulin pen Indications: Type 2diabetes mellitus with foot ulcer, with long-term current use of insulin ([facility]) Inject 36 Units under the skin in the morning and 36 Units before bedtime. 66 mL 1 08/10/2025 08/10/2025 Discontinued (Patient Never Started This Medication)Start: 05-10-2025 End: 60-06-7882giyqjt 30 [IU] by subcutaneous injection in the morninginsulin glargine (LANTUS SOLOSTAR U-100 INSULIN) 100 unit/mL (3 mL) insulin pen Indications: Type 2diabetes mellitus with foot ulcer, with long-term current use of insulin ([facility]) Inject 30 Units under the skin in the morning and 30 Units before bedtime. 18 mL 1 05/10/2025 08/10/2025 Discontinued (Reorder)Start: 04-26-2025 End: 75-80-5924grnfmk 0.3 mL by subcutaneous injection once dailyinsulin glargine (LANTUS) 100 unit/mL injection Indications: Type 2 diabetes mellitus with foot ulcer, with long-term current use of insulin ([facility]) Inject 0.3 mL (30 Units total) under the skin nightly. 10 mL 1 04/26/2025 05/10/2025 DiscontinuedStart: 11-20-2020 End: 84-70-9324nznueg 25 [IU] by subcutaneous injection once dailyinsulin glargine (LANTUS) 100 unit/mL injection Inject 25 (twenty five) Units under the skin nightly . 7.5 mL 0 11/20/2020 ActiveStart: 11-12-2020 End: 80-58-2601vxoymvk glargine (LANTUS) injection 25 UnitsStart: 11-11-2020 End: 28-18-3427fiejjcl glargine (LANTUS) injection 22 UnitsStart: 2020 End: 26-14-6393efzwfcf glargine (LANTUS) injection 25 UnitsStart: 11-09-2020 End: 09-76-2331mvygjck glargine (LANTUS) injection 32 UnitsStart: 11-07-2020 End: 98-23-3321rqqahzp glargine (LANTUS) injection 35 UnitsStart: 11-06-2020 End: 71-17-5995uxpybru glargine (LANTUS) injection 25 UnitsStart: 01-18-2020 End: 83-05-0482wukhbu 28 [IU] by subcutaneous injection once daily at bedtime Insulin Glargine (Lantus U-100 Insulin) 100 unit/mL Solution Discontinued 28 UNIT SUBCUT Daily at bedtime January 18, 2020 1:00am May 09, 2024 2:20pm Start: 01-18-2020 End: 23-67-4005csluhw 38 [IU] by subcutaneous injection once daily in the morningInsulin Glargine 100 unit/mL (3 mL) insulin pen Discontinued 38 UNIT SUBCUT Every morning January 18, 2020 1:00am January 07, 2024 12:05pm End: 86-20-9554dwwhng 0.28 mL by subcutaneous injection once dailyinsulin [...] Subcutaneous twice a day ActiveLantus Active End: 83-23-3141tktswv 38 [IU] by subcutaneous injection once daily in the morninginsulin glargine (LANTUS) 100 unit/mL injection Inject 38 Units under the skin daily AM . 0 11/21/2020 Discontinued (Stop Taking at Discharge) End: 05-33-2277obeqnj 32 [IU] by subcutaneous injection once daily at bedtime insulin glargine (LANTUS) 100 unit/mL injection Inject 32 Units under the skin nightly HS . 0 11/21/2020 Discontinued (Stop Taking at Discharge)insulin regular, human (NOVOLIN R INJECTION) (2 sources)insulin regular, human (NOVOLIN R INJECTION) by INJECTION(UNSPECIFIED PARENTERAL ROUTES) route. Active3 ml insulin aspart, human 100 unt/ml pen injector (20 sources)Insulin AnalogStart: 97-32-9414jzbfpyo aspart U-100 (NovoLOG) 100 unit/mL (3 mL) insulin pen Indications: Type 2 diabetes mellituswith foot ulcer, with long-term current use of insulin ([facility]) Sliding scale with carb counting before meals three times per day. Max dose 30 units per day 09/21/2025 ActiveStart: 05-10-2025 End: 30-63-0823osmuxcv aspart U-100 (NovoLOG Flexpen U-100 Insulin) 100 unit/mL (3 mL) insulin pen Indications: Type 2 diabetes mellitus with foot ulcer, with long-term current use of insulin ([facility]) Sliding scale with pre meal blood sugars three times per day ( max dose 36 units/day) 15 mL 1 05/10/2025 08/10/20 25 Discontinued (Therapy completed)Start: 01-18-2020 End: 64-78-5863Jllcral Aspart U-100 (Novolog Flexpen U-100 Insulin) 100 unit/mL (3 mL) Insulin Pen Discontinued 0 UNIT SUBCUT As Directed January 18, 2020 1:00am May 09, 2024 2:20pm per sliding scale End: 35-96-3454zvgxssv aspart U-100 (NovoLOG) 100 unit/mL injection Inject under the skin. 04/26/2025 Discontinuedinsulin aspart (NovoLOG FLEXPEN) 100 UNIT/ML pen (If FSB 150-200; take 4 units,; 201-250, 6 UNITS,;251-300, 8 UNITS; 301-350, 10 UNITS; 350-401, 12 UNITS; Max: 40 units/day) 0 ActiveNovoLOG FlexPen 100 UNIT/ML 18 units with meals Subcutaneous twice a day ActiveNovoLOG Active End: 22-35-5450almtjqm aspart U-100 (NovoLOG) 100 unit/mL injection Inject [...] 0.05 mg/ml ophthalmic solution (20 sources)Prostaglandin AnalogStart: 59-22-7517ieep 1 drop(s) into the eye(s) once daily at bedtimelatanoprost (XALATAN) 0.005 % ophthalmic solution Administer 1 drop into the left eye once daily atbedtime. INSTILL 1 DROP INTO LEFT EYE AT BEDTIME 03/28/2025 ActiveStart: 90-14-0155qnuq 1 drop(s) into the eye(s) once daily in the eveningLatanoprost Active 1 DROPS EYE-BOTH Daily February 02, 2024 12:00am FreeTextSi drop into affected eye in the evening Ophthalmic Once a day; Note: Source Status: Taking; Provider: Dora German (N PI: [id number])take 1 drop(s) into the eye(s) once daily in the evening Latanoprost 0.005 % 1 drop into affected eye in the evening Ophthalmic Once a day Activelisinopril 10 mg oral tablet (20 sources)Angiotensin Converting Enzyme InhibitorStart: 01-18-2020 End: 31-31-5662adih 1 tablet by mouth in the morninglisinopriL (PRINIVIL,ZESTRIL) 10 mg tablet Indications: Benign essential HTN , Type 2 diabetes mellitus with foot ulcer, with long-term current use of insulin ([facility]) Take 1 tablet (10 mg total) bymouth in the morning for 360 days. 90 tablet 3 08/10/2025 08/05/2026 ActiveLisinopril ActiveNetarsudil-Latanoprost (ROCKLATAN OP) (1 source)take 1 drop(s) into the eye(s) at bedtimeNetarsudil-Latanoprost (ROCKLATAN OP) Administer 1 drop into affected eye(s) at bedtime 0 Tzpvov53 hr niacin 500 mg extended release oral tablet (7 sources)Nicotinic AcidStart: 83-15-5997iskg 1 tablet by mouth once daily niacin (NIASPAN) 500 mg CR tablet Indications: Mixed hyperlipidemia due to type 2 diabetes mellitus(CMS-HCC) Take 1 tablet (500 mg total) by mouth nightly. 90 tablet 1 08/10/2025 Activesemaglutide (OZEMPIC) 0.25 mg or 0.5 mg (2 mg/3 mL) pen injector (11 sources)Start: 80-00-6188qwfscxmdurn (OZEMPIC) 0.25 mg or 0.5 mg (2 mg/3 mL) pen injector Indications: Type 2 diabetes mellitus with other circulatory complication, with long-term current use of insulin ([facility]) Inject 0.5 mg under the skin every 7 days. 2 mL 08/10/2025 ActiveStart: 07-16-2025 End: 06-70-8464eyvxxbzbgpb (OZEMPIC) 0.25 mg or 0.5 mg (2 mg/3 mL) pen injector Indications: Type 2 diabetes mellitus with other circulatory complication, with long-term current use of insulin ([facility]) Inject 0.25mg under the skin every 7 days. 2 mL 07/16/2025 08/10/2025 Discontinued (Reorder)Start: 07-16-2025 semaglutide (OZEMPIC) 0.25 mg or 0.5 mg (2 mg/3 mL) pen injector Indications: Type 2 diabetes mellitus with other circulatory complication, with long-term current use of insulin ([facility]) Inject 0.25mg under the skin every 7 days. 2 mL 07/16/2025 Activesucralfate 1000 mg oral tablet (2 sources)Aluminum ComplexStart: 04-10-2025 End: 37-64-7400vbsk 1 tablet by mouth twice dailysucralfate (CARAFATE) 1 gram tablet Indications: Diabetic gastroparesis (HCC) Take 1 tablet by mouth two times a day. Start taking medication after procedure for 4 weeks. 60 tablet 04/10/2025 05/10/2025 Activevonoprazan (VOQUEZNA) 10 mg tablet (1 source)Start: 09-21-2025 End: 72-52-4926llcq 1 tablet by mouth in the morningvonoprazan (VOQUEZNA) 10 mg tablet Indications: Gastroesophageal reflux disease, unspecified whether esophagitis present Take 10 mg by mouth in the morning for 30 days. 30 tablet 09/21/2025 10/21/2025 Active Completed/Discontinued Medications MedicationDrug Class(es)DatesSig (Normalized)Sig (Original)acetaminophen 325 mg oral tablet (6 sources)Start: 11-06-2020 End: 25-94-0554reem 1 tablet by mouth every six hours as neededacetaminophen (TYLENOL) tablet 650 mg End: 01-64-8075fsac 2 tablets by mouth every six hours as needed for headache acetaminophen (TYLENOL) 500 mg tablet Indications: headache disorder Take 2 tablets (1,000 mg total) by mouth every 6 (six) hours as needed Indications: headache. 04/26/2025 Discontinuedacetaminophen 325 mg / oxyCODONE hydrochloride 5 mg oral tablet (1 source)Opioid AgonistStart: 11-07-2020 End: 41-03-2617fbeh 1 tablet by mouth every four hours as neededoxyCODONE- acetaminophen (PERCOCET) 5-325 mg per tablet 1 tabletalbuterol 0.833 mg/ml / ipratropium bromide 0.167 mg/ml inhalant solution (1 source)Anticholinergic, beta2-Adrenergic AgonistStart: 11-05-2020 End: 89-05-6120oopa 3 mL by inhalation every two hours as needed3 mL, Inhalation, Every 2 hour PRN (RT), wheezing, shortness of breath, Starting Wed11/05/20 at 1920alteplase (CATH BERTHA) injection 2 mg (1 source)Start: 11-19-2020 End: 70-60-6790nsubvsjwx (CATH BERTHA) injection 2 mgcalcium chloride 0.0014 meq/ml / potassium chloride 0.004 meq/ml / sodium chloride 0.103 meq/ml / sodium lactate 0.028 meq/ml injectable solution (3 sources)Start: 11-11-2020 End: 44-39-9102anpk 100 mL intravenous route every ptbh907 mL/hr, Intravenous, Continuous, Starting 11/11/20 at 1800, PACU (only)Start: 11-05-2020 End: 75-28-5873fbmplbrl Ringers infusionceFAZolin 1000 mg injection (14 sources)Cephalosporin AntibacterialStart: 12-11-2020 End: 93-36-1986brDVEonyu (ANCEF) 200 mg/ml injectionStart: 11-19-2020 End: 83-17-4416wbph 2000 mg intravenous route every eight hoursceFAZolin 2,000 mg IV (Outpatient Therapy) Indications: Osteomyelitis, Charcot's foot, tunneling wound Infuse 2 (two) g (2,000 mg total) into a venous catheter every 8 (eight) hours End: 12/19/20 180vial 0 11/19/2020 12/19/2020 ActiveStart: 11-07-2020 End: 86-12-9218jbef 2000 mg intravenous route every eight hoursceFAZolin (ANCEF) IVPB 2 g (premix)Clotrimazole (5 sources)Azole AntifungalClotrimazole Not-TakingClotrimazole ActiveDorzolamide HCl-Timolol Mal (5 sources)Dorzolamide HCl-Timolol Mal Not-TakingDorzolamide HCl-Timolol Mal Activefamotidine 40 mg oral tablet (20 sources)Histamine-2 Receptor AntagonistStart: 07-05-2025 End: 62-89-5231tnkj 1 tablet by mouth in the morning, [...] ) Complies with drug therapyStart: 08-25-2023 End: 06-73-6565vjquurncgc (PEPCID) 40 mg tablet Take 40 mg by mouth. 01/07/2024 ActiveStart: 76-70-7795elej 1 tablet by mouth in the morningfamotidine (Pepcid) 20 MG tablet Take 20 mg by mouth in the morning. 0 03/05/2023 Kaypyh28 ml glucose 500 mg/ml prefilled syringe (1 source)Start: 2020 End: 53-40-4321utujtqhf 50 % in water (D50W) syringe 50 mLStart: 2020 End: 74-16-3563cgixtucq 50 % in water (D50W) syringe 50 mL1 ml heparin sodium, porcine 5000 unt/ml injection (3 sources)Unfractionated Heparin, Anti-coagulantStart: 11-08-2020 End: 96-89-7938htyegbl (porcine) injection 5,000 UnitsStart: 11-05-2020 End: 81-84-5164xdsqrb 5000 [IU] by subcutaneous injection every eight hours5,000 Units, Subcutaneous, Every 8 hours scheduled, First dose on Wed11/05/20 at 2200 Notify physician if patient refuses.1 ml HYDROmorphone hydrochloride 1 mg/ml injection (1 source)Opioid AgonistStart: 11-08-2020 End: 99-69-9110EIQWCjmdrenwz (DILAUDID) injection 1 mgStart: 11-08-2020 End: 28-57-6775XQUNAnorwmjrl (DILAUDID) injection 1 mgInsulin Aspart U-100 (Novolog Flexpen U-100 Insulin) 100 unit/mL (3 mL) Insulin Pen (3 sources)Start: 01-18-2020 End: 99-61-3118Ewkpwse Aspart U-100 (Novolog Flexpen U-100 Insulin) 100 unit/mL (3 mL) Insulin Pen Discontinued 0 UNIT SUBCUT As Directed January 18, 2020 1:00am May 09, 2024 2:20pm per sliding scaleStart: 15-45-3387Czwwaok Aspart U-100 (Novolog Flexpen U-100 Insulin) 100 unit/mL (3 mL) Insulin Pen Active 0 UNIT SUBCUT As Directed January 18, 2020 1:00am per sliding scaleInsulin Glargine (Lantus U-100 Insulin) 100 unit/mL Solution (3 sources)Start: 01-18-2020 End: 62-98-6544frftcc 28 [IU] by subcutaneous injection once daily at bedtime Insulin Glargine (Lantus U-100 Insulin) 100 unit/mL Solution Discontinued 28 UNIT SUBCUT Daily at bedtime January 18, 2020 1:00am May 09, 2024 2:20pm Start: 53-22-9241dnhfyo 28 [IU] by subcutaneous injection once daily at bedtime Insulin Glargine (Lantus U-100 Insulin) 100 unit/mL Solution Active 28 UNIT SUBCUT Daily at bedtimeFebr2019 1:00aminsulin isophane, human 100 unt/ml injectable suspension (13 sources)Start: 07-09-2025 End: 75-86-1561hnwfbey NPH (HumuLIN N,NovoLIN N) 100 unit/mL injection Indications: Type 2 diabetes mellitus with foot ulcer, with long-term current use of insulin ([facility]) 38 units in the morning and 40 units at nighttime 10 mL 3 08/10/2025 09/21/2025 DiscontinuedStart: 68-10-0553Elnfcbb Nph Isoph U-100 Human (Novolin N Nph U-100 Insulin) 100 unit/mL suspension Active 38 UNIT SUBCUT Bedtime July 09, 2025 12:00am Complies with drug therapy3 ml insulin lispro 100 unt/ml pen injector (20 sources)Insulin AnalogStart: 03-04-2025 End: 99-32-7617eumadnj lispro (ADMELOG SOLOSTAR U-100 INSULIN) 100 unit/mL insulin pen Indications: Type 2 diabetes mellitus with foot ulcer, with long- term current use of insulin ([facility]) 70-150 0 units 151-174 2units 175-199 4 units 200-224 6 units 225-249 8 units 250-274 10 units 275-299 12 units 300-350 14 units >350 16 units and call provider 15 mL 04/26/2025 05/10/2025 DiscontinuedStart: 11-06-2020 End: 47-21-1433fgyryan lispro (HumaLOG) 100 unit/mL injection Sliding scale before meals: BG 150-200 = +1 unit Humalog, 201-250=+2 Units Humalog, 251-300=+3 Units Humalog, 301-350= +4 Humalog, >351 =+5 units Humalog . 10 mL 0 11/20/2020 ActiveLidocaine (2 sources)Antiarrhythmic, Amide Local AnestheticStart: 11-19-2020 End: 86-04-1666bifx 1 mL intradermal route every twenty-four hours as needed lidocaine 10 mg/mL (1 %) injection 1 mLStart: 11-06-2020 End: 88-45-9721jqzteqjbr 10 mg/mL (1 %) injection - ADS [...] 40 mg/ml injection (1 source)Start: 11-12-2020 End: 33-66-4582wlnwjxazk sulfate 2 g in sterile water (SW) 50 mL IVPBmetFORMIN hydrochloride 1000 mg oral tablet (20 sources)BiguanideStart: 01-18-2020 End: 44-79-5726meza 1 tablet by mouth twice dailyMetformin 1,000 mg tablet Discontinued 1000 MG PO Twice daily January 18, 2020 1:00am January 07, 2024 12:05pmmetFORMIN HCl Activemetoclopramide 15 mg/actuat nasal spray (4 sources)Dopamine-2 Receptor AntagonistStart: 04-10-2025 End: 98-66-6386irvnvvlyyedjdj HCl (GIMOTI) 15 mg/spray spray with pump Administer 1 spray into each nostril in themorning and 1 spray at noon and 1 spray in the evening and 1 spray before bedtime. 04/10/2025 04/26/2025 DiscontinuedStart: 49-57-4557gigrkjtjdjllfs HCl (GIMOTI) 15 mg/spray nasal spray Indications: Diabetic gastroparesis (HCC) Use 1spray in the nose four times daily. 9.8 mL 2 04/10/2025 ActiveStart: 11-13-2020 End: 07-51-1217qaykbyaturpfty (REGLAN) injection 10 mgnaloxone (NARCAN) injection 0.1 mg (1 source)Start: 11-07-2020 End: 25-15-7536gfibjddi (NARCAN) injection 0.1 mgomeprazole 40 mg delayed release oral capsule (14 sources)Proton Pump InhibitorStart: 08-25-2022 End: 95-82-8888Kcbopjwscb 40 MG 1 capsule 30 minutes before morning meal and evening meal Orally twice a day for 30 day(s) Aug, Not-Taking2 ml ondansetron 2 mg/ml injection (1 source)Serotonin-3 Receptor AntagonistStart: 11-05-2020 End: 67-19-8800txxr 4 mg intravenous route every six hours as needed4 mg, Intravenous, Every 6 hours PRN, nausea, vomiting, Starting 11/05/20 at 1920 pantoprazole 40 mg delayed release oral tablet (20 sources)Proton Pump InhibitorStart: 08-25-2023 End: 56-95-4730tjzb 1 tablet by mouth in the morningpantoprazole (PROTONIX) 40 mg EC tablet Indications: Gastroesophageal reflux disease, unspecified whether esophagitis present Take 1 tablet (40 mg total) by mouth in the morning. 90 tablet Discontinued (Alternate therapy)Start: 02-02-2020 End: 72-94-7741znzh 1 tablet by mouth in the morningpantoprazole (PROTONIX) 40 mg EC tablet Indications: Gastroesophageal reflux disease, unspecified whether esophagitis present Take 1 tablet (40 mg total) by mouth in the morning. 90 tablet 5Activepiperacillin 3000 mg / tazobactam 375 mg injection (1 source)Penicillin-class Antibacterial, beta Lactamase InhibitorStart: 11-05-2020 End: 78-25-9462ukiu 3.375 g intravenous route every eight hourspiperacillin- tazobactam (ZOSYN) IVPB 3.375 g (premix)100 ml potassium chloride 0.2 meq/ml injection (7 sources)Start: 11-16-2020 End: 25-90-8456eznc 20 mEq intravenous route every two hourspotassium chloride 20 mEq in 100 mL IVPBStart: 11-12-2020 End: 97-07-4005krgtepkmj chloride 20 mEq in 100 mL IVPBStart: 11-09-2020 End: 59-90-0364ojvm 20 mEq intravenous route every two hourspotassium chloride 20 mEq in 100 mL IVPBStart: 11-06-2020 End: 67-43-4367mttwsdwin chloride SA (K-DUR,KLOR-CON) CR tablet 40 mEqStart: 11-05-2020 End: 56-44-9010fkaaxgnkk chloride SA (K-DUR,KLOR-CON) CR tablet 20 mEqpotassium phosphate 30 mmol in sodium chloride 0.9 % (NS) 250 mL IVPB (1 source)Start: 11-05-2020 End: 67-60-9459wahzpjwfz phosphate 30 mmol in sodium chloride 0.9 % (NS) 250 mL YMJP582 ml sodium chloride 9 mg/ml prefilled syringe (4 sources)Start: 11-19-2020 End: 94-25-7977cwovwt chloride (PF) (NS) flush 10 mLStart: 11-08-2020 End: 32-27-3375bmpoej chloride 0.9% (NS)Start: 11-06-2020 End: 64-29-4662eludpc chloride 0.9% (NS) bolus 2,000 mLsodium chloride (PF) (NS) 0.9 % contrast line flush 10 mL (1 source)Start: 11-05-2020 End: 55-31-9617uruteh chloride (PF) (NS) 0.9 % contrast line flush 10 mLsodium phosphate, dibasic 59.3 mg/ml / sodium phosphate, monobasic 161 mg/ml enema (1 source)Start: 11-16-2020 End: 41-55-1809kbyaau phosphates (FLEETS ADULT) 19-7 gram/118 mL enema 1 each technetium (Tc-99m) (SULFUR COLLOID) solution 1 millicurie (1 source)Start: 11-13-2020 End: 97-63-5190mmxojgaltd (Tc-99m) (SULFUR COLLOID) solution 1 millicurie traMADol hydrochloride 50 mg oral tablet (1 source)Opioid AgonistStart: 11-07-2020 End: 20-68-8512uzqVXCsR (ULTRAM) tablet 50 mgStart: 11-07-2020 End: 88-43-7099pggFNPnT (ULTRAM) tablet 50 mgvancomycin (VANCOCIN) 1500 mg in sodium chloride 0.9% (NS) 500 mL IVPB (1 source)Start: 11-05-2020 End: 16-14-5049vrpe 1500 mg intravenous route every twenty-four hoursvancomycin (VANCOCIN) 1500 mg in sodium chloride 0.9% (NS) 500 mL IVPB Problems Active Problems Problem ClassificationProblemDateDocumented DateEpisodic/ChronicAbdominal pain (13 sources)Epigastric pain; Translations: [Epigastric pain]36-73-4646Jbzpjsqw Administrative/social admission (1 source)Dietary counseling and surveillanceEpisodicAnxiety disorders (3 sources)Generalized anxiety disorder; Translations: [Generalized anxiety disorder]Onset: 287598-74-5992UaxdvwiWxtufmltj infection; unspecified site (1 source)Infection by methicillin sensitive Staphylococcus aureus; Translations: [MSSA (methicillin susceptible Staphylococcus aureus) infection] EpisodicChronic ulcer of skin (20 sources)Non-pressure chronic ulcer of other part of right foot with fat layer exposed; Translations: [Ulcerof other part of foot]Onset: 03-21-2021 31-60-2305UinrexaXcunbddlra associated with dizziness or vertigo (4 sources)Dizziness and giddiness; Translations: [DIZZINESS AND GIDDINESS] Onset: 38-69-0936XxzgkopwSfgjlyda mellitus with complications (20 sources)Type 2 diabetes mellitus with hyperglycemia; Translations: [Type II diabetes mellitus uncontrolled]Onset: 599469-51-3771NyszinsDfcqcleb mellitus without complication (20 sources)Type 2 diabetes mellitus; Translations: [Type 2 diabetes mellitus without complications]Onset: 977468-65-3639VadybuvAhikyfa on above:Problem List clean-up per request of Phys. EHR CmteDisorders of lipid metabolism (20 sources)Hyperlipidemia; Translations: [Hyperlipidemia, unspecified]Onset: 35-79-5069OlybsraNjprfwebxv disorders (20 sources)Gastroesophageal reflux disease; Translations: [Gastro-esophageal reflux disease without esophagitis]Onset: 23-04-7064VxlfjkkRqmukjg on above: Problem List clean-up per request of Phys. EHR CmteEssential hypertension (20 sources)Hypertensive disorder; Translations: [Essential (primary) hypertension]Onset: 23-29-0769MmzdergLbrutaxxv arthritis and osteomyelitis (except that caused by tuberculosis or sexually transmitted disease) (20 sources)Acute osteomyelitis of foot; Translations: [Chronic osteomyelitis of foot with draining sinus]Onset: 285579-61-8324YkgxmsdEgtkxvpdq arthritis and osteomyelitis (except that caused by tuberculosis or sexually transmitted di sease) (5 sources)Subacute osteomyelitis of left foot; Translations: [Subacute osteomyelitis of left foot (HCC)]Nausea and vomiting (20 sources)Nausea and vomiting; Translations: [Nausea with vomiting, unspecified]Onset: 46-49-4194AeitjrnvXslfzyttoub deficiencies (1 source)Vitamin D deficiency; Translations: [Vitamin D deficiency, unspecified]Onset: 930621-74-1607QpbnnseEwoajztsa or stenosis of precerebral arteries (9 sources)Bilateral carotid artery occlusion; Translations: [Occlusion and stenosis of bilateral carotid arteries]Onset: 804646-59-5590NwipfiaWnrfu acquired deformities (1 source)Retrolisthesis; Translations: [Spondylolisthesis, site unspecified] Onset: 517463-49-0146ItredqwbIjnpk aftercare (1 source)parts counterman (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) use of oral hypoglycemic drugs; Translations: [LONG CHAIN QUILLER TENDER USE ORAL HYPOGLYCEMIC DX]Onset: 54-33-4282ZfgbzavqLmnhi aftercare (1 source)Encounter for therapeutic drug level monitoring; Translations: [ENC THERAPEUTC DRUG LEVL MONITORING]Onset: 25-64-8601QgeabslmTkhrd aftercare (1 source)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; Translations: [OTH CARE HOME CURRENT DRUG THERAPY]Onset: 41-79-3338BltptuctDpcpg aftercare (8 sources)Long-term current use of insulin; Translations: [parts counterman (current) use of insulin]76-49-8534MpecxwvmWwwtm aftercare (2 sources)Wound finding; Translations: [Encounter for other specified aftercare]12-40-9749TntwpqawUevay bone disease and musculoskeletal deformities (1 source)Amputated foot; Translations: [Acquired absence of left foot]Onset: 396826-79-6149QckeneyWzvmf bone disease and musculoskeletal deformities (20 sources)History of amputation of right foot; Translations: [Acquired absence of right foot]Onset: 225304-33-0514LlaxllxYirce bone disease and musculoskeletal deformities (1 source)Acquired absence of right foot; Translations: [Acquired absence of right foot]Onset: 65-32-3861ObblkxyUcrex disorders of stomach and duodenum (3 sources)Gastroparesis; Translations: [Gastroparesis]Onset: 43-83-5765Rmopnyde Other disorders of stomach and duodenum (7 sources)Gastroparesis syndrome; Translations: [Gastroparesis]05-20-2025 EpisodicOther liver diseases (20 sources)Fatty (change of) liver, not elsewhere classified; Translations: [Other chronic nonalcoholic liver disease]Onset: 452221-64-5962Uarjeny Other liver diseases (5 sources)Steatosis of liver; Translations: [Fatty (change of) liver, not elsewhere classified]45-68-4648HkxshrfSaank liver diseases (14 sources)Alkaline phosphatase raised; Translations: [Abnormal levels of other serum enzymes]Onset: 683476-81-9078CpxqazqqDfmbp nervous system disorders (5 sources)Peripheral nerve disease ; Translations: [Polyneuropathy, unspecified]33-96-9893IfxopdpPimof nervous system disorders (2 sources)Other chronic pain; Translations: [Other chronic pain]Onset: 19-92-9925AmdksapAwtdy nervous system disorders (1 source)Abnormal gait; Translations: [Unspecified abnormalities of gait and mobility]Onset: 879644-02-6287QcxxpjkdXyvxc non-traumatic joint disorders (2 sources)Charcot arthropathy of joint of ankle; Translations: [Charcot's joint of ankle, unspecified laterality]ChronicOther non-traumatic joint disorders (20 sources)Charcot's joint of foot; Translations: [Charcot's joint, left ankle and foot]Onset: 054586-21-4795SenqwovTzted nutritional; endocrine; and metabolic disorders (3 sources)Obese class II; Translations: [Body mass index (BMI) 36.0-36.9, adult]ChronicOther nutritional; endocrine; and metabolic disorders (1 source)Body mass index (BMI) 36.0-36.9, adultChronicOther nutritional; endocrine; and metabolic disorders (1 source)Hypoproteinemia; Translations: [Other disorders of glycoprotein metabolism]Onset: 220890-20-0422TrfmgndOjolc nutritional; endocrine; and metabolic disorders (1 source)Hypocalcemia; Translations: [Hypocalcemia]Onset: 731455-16-0433 ChronicOther nutritional; endocrine; and metabolic disorders (8 sources)Body mass index 30+ - obesity; Translations: [Obesity, unspecified] Onset: 844433-62-3435EzuxuhfKzmxe skin disorders (1 source)Atrophic disorder of skin, unspecifiedEpisodicOther upper respiratory disease (1 source)Chronic rhinitis; Translations: [Chronic rhinitis]Onset: 04-14-2023 35-58-4856ZngqwnyRaoolzqvum and visceral atherosclerosis (20 sources)Peripheral vascular disease, unspecified; Translations: [Peripheral vascular disease, unspecified]Onset: 985909-37-9529HrxljhxIcdoueis codes; unclassified (1 source)Family history of cardiac disorder; Translations: [Family history of ischemic heart disease and other diseases of the circulatory system]Onset: 591803-44-3142WhamclwkLkeacsa detachments; defects; vascular occlusion; and retinopathy (5 sources)Retinal disorder; 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] 63-25-7356AqmmclsXoygwokhvfg; intervertebral disc disorders; other back problems (20 sources)Chronic low back pain; Translations: [Chronic midline low back pain without sciatica]Onset: 777638-41-8892BvncgtozSwdqlhyhpfga (2 sources)DXOnset: 79-26-8074Cbaquafywcrq (1 source)New PatientOnset: 37-35-1115Spxhlgzqadbd (6 sources)FU PRNUnclassified (2 sources)Low back pain, unspecified; Translations: [Low back pain, unspecified]Onset: 27-99-4157Vsqzgqoiudqg (1 source)Wound CheckOnset: 88-81-0939Vufhnfeoydrf (1 source)Wound on FootOnset: 97-93-1892Vjxaxrpvsipp (1 source)transitonal care visitOnset: 50-96-4016Dhzafkhjzzei (1 source)Establish CareOnset: 04-26-2025 Past or Other Problems Problem ClassificationProblemDateDocumented DateEpisodic/ChronicDiabetes mellitus without complication (3 sources)Hyperglycemia; Translations: [Hyperglycemia, unspecified]Onset: 753890-30-5720ErnrdtbqDdthjkbv of upper limb (1 source)Closed multiple fractures of hand bones; Translations: [Unspecified fracture of unspecified wrist and hand, initial encounter for closed fracture] Onset: 142163-21-3503VsbyrvsjKqqazow and fatigue (3 sources)Fatigue; Translations: [Other fatigue]Onset: EpisodicMood disorders (20 sources)Mood disordersOnset: 02-07-2021 Resolved: Open wounds of extremities (20 sources)Open wound of foot with complication; Translations: [Unspecified open wound, left foot, initial encounter]Onset: 355630-71-8392Uxoonvnx Other aftercare (4 sources)parts counterman (current) use of insulin; Translations: [LONG CHAIN QUILLER TENDER CURRENT USE OF INSULIN]Onset: 33-34-3896HaxqadgsKvpmk aftercare (2 sources)Encounter for other specified aftercare; Translations: [Encounter for other specified aftercare]Onset: 87-19-9290XqaisedhSqiga non-traumatic joint disorders (20 sources)Instability of joint of right ankle; Translations: [Other instability, right ankle]Onset: 613279-01-2500DqybzxstTuprm screening for suspected conditions (not mental disorders or infectious disease) (4 sources)Patient encounter status; Translations: [Encounter for screening for malignant neoplasm of colon]Onset: 117403-23-5496CsaaihytNudjb skin disorders (1 source)Corns and callosities; Translations: [Corns and callosities]Onset: 31-00-9733FizlndcbKxdiyuikal (except in labor) (20 sources)Sepsis; Translations: [Sepsis, unspecified organism]Onset: 02-07-2021 Resolved: 223188-29-6832RxjoysfwIgny and subcutaneous tissue infections (3 sources)Cutaneous abscess of left foot; Translations: [Cellulitis]Onset: 870610-49-9196ZumpldqfOxlnkzupymoi (3 sources)Open wound of left phve17-93-2725 Results Test NameValueInterpretationReference RangeFacilityPOCT Hemoglobin A1con 48-99-5525XXF Target < 8YeWinnebago Mental Health Institute TecvimEyZ4c (Bld) [Mass fraction]9.0 %Abnormal4 - 7 %[facility] SystemInterpretation and review of laboratory resultsAbnormalProUk Healthcare SystemProUk Healthcare SystemCT angio neckon 27-19-5469WE angio neckMER[facility] [place] [address] CT Scan Report Signed Patient: More Kingsley MR#: [id number] 125 : 1965 Acct:[id number] Age/Sex: 59 / M ADM Date: 08/22/25 Loc: CT Room: Type: [facility] Attending Dr: Cathy Leggett FLY FINISHER-C Copies to: Cathy Leggett APRN Ordering Provider: Cathy Leggett APRN Date of Service: 08/22/25 CT/CT angio head: I65.23 - Occlusion and stenosis of bilateral carotid ney... ([id number]) CT/CT angio neck: I65.23 - Occlusion and stenosis of bilateral carotid ney... CT angio head, CT angio neck 08/22/2025 9:10 AM SIGNS AND SYMPTOMS: I65.23 - Occlusion and stenosis of bilateral carotid eny... CONTRAST: 80 mL of intravenous Visipaque 370 [...] Kidd M.D. 08/22/2025 5:14 PM Dictation Location: [place] [address] Transcribed By: AMBER 08/22/251713 Dictated By: Blair Kidd II, MD 08/22/251703 Signed By: 08/22/251713NoScionHealth Physician GroupISTAT XRay CREon 27-70-8146GDOOA GFR>60.0NoScionHealth Physician GroupComment on above:Result Comment: PERFORMED BY: [place] [address] PATHOLOGIST SAUSAGE GRINDER CHE TAVARES M.D.Performed By: #### ISCRE #### [place] [address] USANo Panel InformationOrdered By: Cathy Leggett on 46-08-2552Rrniidv Estimated GFR (eGFR)> 60.0[facility] Whole blood creatinine measurementOrdered By: Cathy Leggett on 08-22-2025 Creatinine [Mass/Vol]1.3 mg/dL0.6-1.3FSamaritan North Health CenterComment on above:ER/ESD physician is notified/shown all ISTAT results.Critical values may be confirmed by laboratorytesting ifdeemed necessary by ER attending doctor. Result Comment: ER/ESD physician is notified/shown all ISTAT results. Critical values may be confirmed by laboratory testing if deemed necessary by ER attending doctor.Performed By: #### ISCRE #### [facility] [address] [place] [address] USALIPID PROFILEon 08-24-6856Zpsnrcpftlh [Mass/Vol]198 mg/dL Dqdjhs341-751BgeUtcuqbHca Houston Healthcare NorthwestComment on above:Performed By: #### CBCA, CMP #### [facility] ([id number]) [address] [place] [address] 26723Yoedouemhzx in HDL [Mass/Vol]34 mg/dLLow>39ProHca Houston Healthcare NorthwestComment on above:Result Comment: HDL <40 mg/dL - High Risk HDL > or = 40mg/dL- Desirable HDL >60 mg/dL - Negative RiskPerformed By: #### CBCA, CMP #### [facility] ([id number]) [address] [place] [address] 35951Hefjlpljmgh in LDL [Mass/Vol]128 mg/dLNormal<130ProHca Houston Healthcare NorthwestComment on above:Result Comment: LDL <100 mg/dL - Desirable LDL >160 mg/dL - High RiskPerformed By: #### CBCA, CMP #### [facility] ([id number]) [address] [place] [address] 83403WVBZBQTLZAE:HDL5.8High1.0-5.0ProHca Houston Healthcare NorthwestComment on above:Performed By: #### CBCA, CMP #### [facility] ([id number]) [address] [place] [address] 40083Yczeyqumbmgh [Mass/Vol]179 mg/mEWxle94-956TctKvcgdu Harrells HospitalComment on above:Performed By: #### CBCA, CMP #### [facility] ([id number]) [address] [place] [address] 54314VKMA LOW DZUSITCHOBA97 mg/dLHigh0-30[facility] Comment on above:Performed By: #### CBCA, CMP #### [facility] ([id number]) [address] [place] [address] 38999Zptjcrubkpop 07-26-8350Gnapffphxn Clr Calc Rijkneap26.67Normal [facility] Physician GroupComment on above:Result Comment: PERFORMED BY: [place] [address] PATHOLOGIST SAUSAGE GRINDER CHE TAVARES M.D.Performed By: #### BUN, CREAT #### [facility] [address] [place] [address] USAGFR/1.73 sq M.predicted MDRD (S/P/Bld) [Vol rate/Area] 57.276 mL/min/{1.73_m2}NormalThe [facility] Physician [facility] CenterComment on above: Performed By: #### BUN, CREAT #### [place] [id number] USACreatinine [Mass/volume] in Serum or PlasmaOrdered By: Chan Quintanilla on 64-41-7495Lypsxoyfav [Mass/Vol]1.42 mg/dLHigh0.70-1.30 [facility] CenterComment on above:Performed By: #### BUN, CREAT #### [facility] [address] [place], [place] [address] USANo Panel InformationOrdered By: Chan Quintanilla on 16-24-2190Ksyelkqca GFR (CKD-EPI)57.276 mL/MinMetrohealth [facility] Creatinine Clearance (Chem72.67[facility] Medical CenterUrea nitrogen [Mass/volume] in Serum or PlasmaOrdered By: Chan Quintanilla on 74-00-2596Ffej nitrogen [Mass/Vol]26 mg/dLHigh7-25[facility] Medical CenterComment on above:Performed By: #### BUN, CREAT #### [facility] [address] [place] [id number] USAUS UNI ankle/arm indiceson 29-43-4451MB UNI ankle/arm indicesSt. John of God [facility] [address] [place] [address] Ultrasound Report Signed Patient: More Kingsley MR#: [id number] 125 : 1965 Acct:[id number] Age/Sex: 59 / M ADM Date: 06/28/25 Loc: [facility] Room: Type: [facility] Attending Dr: Chan Quintanilla MD Ordering [...] Quintanilla MD,FACS,FSVS 07/04/2025 1:41 PM Dictation Location: [place] [address] Tech: Soraida Tez Transcribed By: PWS 07/04/25 1341 Dictated By: Chan Quintanilla MD 07/04/25 1341 Signed By: 07/04/25 1341[facility] Physician GroupXR FOOT RT MIN 3 VWS WEIGHT BEARINGon 63-70-1344NY FOOT RT MIN 3 VWS WEIGHT BEARINGXR FOOT RT MIN 3 VWS WEIGHT BEARING XR FOOT RT MIN 3 VWS WEIGHT BEARING HISTORY: Right foot ulcer, with unspecified severity ([facility]). COMPARISON: 03/04/2025 IMPRESSION: Unchanged indication about the metatarsals. Progressive sclerosis and irregularity of the plantar aspect remnant tarsal/metatarsal are nonspecific, infection is possible. Correlate for associated soft tissue injury, consider MR, as appropriate. Plantar and Achilles calcaneal enthesophytes. Vascular calcifications. Finalized by Thomas Schrader MD on 06/12/2025 2:05 [facility]AR GENERIC LIXF RESULTSEE NOTEAbnormalFairfield Medical CenterComment on above:Result Comment: Test name Result Flag Units RefIntvl Testosterone, Total by Black Top Raker 234.3 L ng/dL 300.0-890.0 This test was developed and its performance characteristics determined by [facility]. It has not been cleared or approved [...] Children, or Individuals on Testosterone-Suppressing Hormone Therapy) ([employer] test code 6630510). For individuals on testosterone hormone therapy, refer to cisgender male reference intervals. No reference intervals have been established for males younger than 18 years or for cisgender females. For a complete set of all established reference intervals, refer to ltd.Mixamo/Tests/Pub/0863469. This test was developed and its performance characteristics determined by [facility]. It has not been cleared or approved by the [place] Food and Drug Administration. This test was performed in a CLIA certified laboratory and is intended for clinical purposes. Performed By: [facility] [address] [place] [address] Case Resolution Specialist: Warren Simmons MD, PhD CLIA Number: [id number] By: #### ARELY, CMP #### [facility] ([id number]) [address] [place] [address] 53539GWVYPGDYXsr 84-66-4194Qatrowvlg [Mass/Vol]2.0 mg/dLNormal 1.8-2.6Fair[facility] Medical CenterComment on above:Performed By: #### ARELY, CMP #### [facility] ([id number]) [address] [place] [address] 11304OWRMXKIGD SPECIFIC ANTIGEN SCREENon 58-18-1754GINMIHLDC SPEC ANT0.86 ng/mLNormal0.00-4.00ProHca Houston Healthcare NorthwestComment on above:Result Comment: The method used for this test is KARALIT DXI chemiluminescent immunoassay. Values obtained by different assay methods cannot be used interchangeably.Performed By: #### ARELY, CMP #### [facility] ([id number]) [address] [place] [address] 66357LMZQUFJTMTRA, TOTAL AND FREE, Son 24-08-5421FFPBZLZTWEAW, TOTAL AND FREE, STESTF TESTOSTERONE, TOTAL AND FREE, S CancelledNormalProHca Houston Healthcare NorthwestVITAMIN B12on 56-55-1327Qrxcebocg (Vitamin B12) [Mass/Vol]1009 pg/gSKqas847-130YryXgwpib [facility] CampusComment on above:Performed By: #### ARELY, CMP #### [facility] ([id number]) [address] [place] [address] 13738LEXPDDE D 25 HYDROXYon 97-66-7072HKECEYG D 25 HYD TOT84.2 ng/mL Zpqoil50.0-100.0ProHca Houston Healthcare NorthwestComment on above:Order Comment: Vitamin D status 25 [place] Vitamin D Deficiency <20 ng/mLInsufficiency 20-29 ng/mLSufficiency 30-100 ng/mLToxicity >100 ng/mLNOTE: A pediatric reference range has not been established by the press service reader of this kit. The [place] [employer] recommends a Vitamin D level of = or >20ng/mL in infants and children.Performed By: #### CBCA, CMP #### [facility] ([id number]) [address] [facility], [place], [place] [address]IN SPINE LUMB COMP INCL BEND 6+ VWSon 89-70-9614LJ SPINE LUMB COMP INCL BEND 6+ VWSXR [...] Vivien Feliz MD on 05/04/2025 3:25 PMNormalProMedica Anderson Sanatorium WITH AUTO DIFFERENTIALon 08-24-2548XFPWFOAKO ABSOLUTE COUNT (10*3/UL) BY AUTOMATED COUNT0.1 10*3/uLNormal0.0-0.2[facility] Comment on above:Performed By: #### CBCA #### [facility] ([facility]) [address] [place] [address] VIRBASOPHILS RELATIVE PERCENT BY AUTOMATED COUNT1.3 %Normal ProMedicProvidence Tarzana Medical CenterComment on above:Performed By: #### CBCA #### [facility] ([facility]) [address] [place] [address] VIRCELLAVISION DIFFERENTIAL TYPEAUTOMATED DIFFERENTIALNormal [facility]rells HospitalComment on above:Performed By: #### CBCA #### [facility] ([facility]) [address] [place] [address] VIREosinophils (Bld) [#/Vol]0.2 10*3/uLNormal0.0-0.4[facility] Medical CenterComment on above:Performed By: #### CBCA #### [facility] ([facility]) [address] [place] [address] VIREOSINOPHILS RELATIVE PERCENT BY AUTOMATED COUNT2.5 %Normal [facility] CenterCommunson healthcare manistee hospital on above:Performed By: #### CBCA #### [facility] ([facility]) [address] [place] [address] VIRErythrocyte distribution width (RBC) [Ratio]15.2 %High 11.5-15[facility] CenterCommunson healthcare manistee hospital on above:Performed By: #### CBCA #### [facility] ([facility]) [address] [place] [address] VIRHematocrit (Bld) [Volume fraction]42.3 %Xwrnad14-10XcdRxabroFairfield Medical CenterComment on above:Performed By: #### CBCA #### [facility] ([facility]) [address] [place] [address] VIRHemoglobin (Bld) [Mass/Vol]14.1 g/uAHdqfhz19-65QafAprkwcFairfield Medical CenterCommunson healthcare manistee hospital on above:Performed By: #### CBCA #### [facility] ([facility]) [address] [place] [address] VIRLYMPHOCYTES ABSOLUTE COUNT (10*3/UL) BY AUTOMATED COUNT1.9 10*3/uLNormal1.0-3.5PSt. Mary's Medical Center, Ironton CampusCommunson healthcare manistee hospital on above:Performed By: #### CBCA #### [facility] ([facility]) [address] [place] [address] VIRLYMPHOCYTES RELATIVE PERCENT BY AUTOMATED COUNT22.1 %Normal [facility] CenterComment on above:Performed By: #### CBCA #### [facility] ([facility]) [address] [place] [address] VIRMCH (RBC) [Entitic mass]27.5 ywOnhpcj60-03PoyRlgspfHca Houston Healthcare NorthwestComment on above:Performed By: #### CBCA #### [facility] [facility] ([facility]) [address] [place] [address] VIRMCHC (RBC) [Mass/Vol]33.4 g/yVPjlvli20-61DtmZurxfuHca Houston Healthcare NorthwestComment on above:Performed By: #### CBCA #### [facility] ([facility]) [address] [place] [address] VIRMCV (RBC) [Entitic vol]82 sEAfvaiq65-756CsbJoxhur Fremont HospitalComment on above:Performed By: #### CBCA #### [facility] ([facility]) [address] [place] [address] VIRMONOCYTES ABSOLUTE COUNT (10*3/UL) BY AUTOMATED COUNT0.9 10*3/uLNormal0.0-0.9[facility] CenterCommunson healthcare [facility] on above:Performed By: #### CBCA #### [facility] ([facility]) [address] [place] [address] VIRMONOCYTES RELATIVE PERCENT BY AUTOMATED COUNT10.6 %Normal [facility] CenterComment on above:Performed By: #### CBCA #### [facility] ([facility]) [address] [place] [address] VIRNEUTROPHILS ABSOLUTE COUNT BY AUTOMATED COUNT5.5 10*3/uL Normal1.5-6.6[facility] CenterCommunson healthcare manistee hospital on above:Performed By: #### CBCA #### [facility] ([facility]) [address] [place] [address] VIRNEUTROPHILS RELATIVE PERCENT BY AUTOMATED COUNT63.5 %Normal [facility] CenterComment on above:Performed By: #### CBCA #### [facility] ([facility]) [address] [place] [address] VIRPlatelet mean volume (Bld) [Entitic vol]9.5 fLNormal7-12 [facility] CenterComment on above:Performed By: #### CBCA #### [facility] ([facility]) [address] [place] [address] VIRPlatelets (Bld) [#/Vol]298 10*3/fLJtqykt518-995VzaVwkwinFairfield Medical CenterComment on above:Performed By: #### CBCA #### [facility] ([facility]) [address] [place] [address] VIRRBC COUNT5.14 X10E12/LNormal4.1-5.7[facility] Medical CenterComment on above:Performed By: #### CBCA #### [facility] ([facility]) [address] [place] [address] VIRWBC (Bld) [#/Vol]8.7 10*3/uLNormal4-11[facility] Medical CenterComment on above:Performed By: #### CBCA #### [facility] ([facility]) [address] [place] [address] VIRCOMPREHENSIVE METABOLIC PANELon 13-68-2256Aweupft [Mass/Vol] 3.7 g/dLNormal3.2-5.3PSt. Mary's Medical Center, Ironton CampusComment on above:Performed By: #### CMP #### [facility] ([facility]) [address] [place] [address] VIRALP [Catalytic activity/Vol]102 U/IKfewci07-515PkfMisbpiFairfield Medical CenterComment on above:Performed By: #### CMP #### [facility] ([facility]) [address] [place] [address] VIRALT [Catalytic activity/Vol]14 U/LNormal<=40ProHca Houston Healthcare NorthwestComment on above:Performed By: #### CMP #### [facility] ([facility]) [address] [place] [address] VIRAnion gap [Moles/Vol]10 mmol/LNormal5-15ProHca Houston Healthcare NorthwestComment on above:Performed By: #### CMP #### [facility] ([facility]) [address] [place] [address] VIRAST [Catalytic activity/Vol]18 U/LNormal<=41ProHca Houston Healthcare NorthwestComment on above:Performed By: #### CMP #### [facility] ([facility]) [address] [place] [address] VIRBilirubin [Mass/Vol]0.9 mg/dLNormal0.3-1.2PSt. Mary's Medical Center, Ironton CampusComment on above:Performed By: #### CMP #### [facility] ([facility]) [address] [place] [address] VIRCalcium [Mass/Vol]9.6 mg/dLNormal8.5-10.5PSt. Mary's Medical Center, Ironton CampusComment on above:Performed By: #### CMP #### [facility] ([facility]) [address] [place] [address] VIRChloride [Moles/Vol]100 mmol/DZupejm60-694EqdDwxpngHca Houston Healthcare NorthwestComment on above:Performed By: #### CMP #### [facility] ([facility]) [address] [place] [address] VIRCO2 [Moles/Vol]22 mmol/BElmpyu37-01MmlBiepdcSt. Mary's Medical Center, Ironton CampusComment on above:Performed By: #### CMP #### [facility] ([facility]) [address] [place] [address] VIRCreatinine [Mass/Vol]1.61 mg/dLHigh0.60-1.30[facility] Medical CenterComment on above:Result Comment: METHOD TRACEABLE TO IDMS STANDARDPerformed By: #### CMP #### [facility] ([facility]) [address] [place] [address] VIRGFR/1.73 sq M.predicted among non-blacks MDRD (S/P/Bld) [Vol rate/Area]49 mL/min/{1.73_m2}Low>=60ProHca Houston Healthcare NorthwestComment on above: Result Comment: Reported eGFR is based on the CKD-EPI 2020 equation that does not use a race coefficient.Performed By: #### CMP #### [facility] ([facility]) [address] [place] [address] VIRGlucose [Mass/Vol]323 mg/fYOwnn31-80HumUmamorHca Houston Healthcare NorthwestComment on above:Performed By: #### CMP #### [facility] ([facility]) [address] [place] [address] VIRPotassium [Moles/Vol]4.1 mmol/LNormal3.5-5.0ProHca Houston Healthcare NorthwestComment on above:Performed By: #### CMP #### [facility] ([facility]) [address] [place] [address] VIRProtein [Mass/Vol]8.9 g/dLHigh6.0-8.0[facility] Medical CenterComment on above:Performed By: #### CMP #### [facility] ([facility]) [address] [place] [address] VIRSodium [Moles/Vol]132 mmol/AYfe733-697KwjEcakuwHca Houston Healthcare NorthwestComment on above:Performed By: #### CMP #### [facility] ([facility]) [address] [place] [address] VIRUrea nitrogen [Mass/Vol]28 mg/dLHigh5-23ProHca Houston Healthcare NorthwestComment on above:Performed By: #### CMP #### [facility] ([facility]) [address] [place] [address] VIRHEMOGLOBIN A1Con 86-04-3643Afmzgwy [Mass/Vol]283 mg/dLNormal ProMatmore community hospitala Mountain View CampusComment on above:Performed By: #### HA1C #### [facility] ([facility]) [address] [place] [address] WMHRsL8x (Bld) [Mass fraction]11.5 %High4.4-5.6ProHca Houston Healthcare NorthwestComment on above:Result Comment: ADA Guidelines Result HgbA1c Normal : less than 5.7 % Prediabetes : 5.7 % to 6.4 % Diabetes : > 6.4 % Use with caution in patients with abnormal hemoglobin variants as the half-life of red blood cells and in vivo glycation rates are affected.Performed By: #### HA1C #### [facility] ([facility]) [address] [place] [address] VIRDebridementon [id number] Vaughn 04/24/2025 12:02 PM Debridement Performed by: SCOTT Vaughn Authorized by: SCOTT Vaughn Associated wounds: Wound 03/28/25 1 Diabetic Ulcer Foot Right;Plantar Consent: Consent obtained: Verbal and written Consent given by: Patient Risks discussed: Yes Debridement Details: Performed by: FLY FINISHER Type: Sharp Level: Subcutaneous Tissue, Devitalized tissue and other material debrided: Subcutaneous tissue, fibrin, biofilm and callus Anesthesia administration: topical Anesthesia: EMLA Total Surface Area Debrided cm^2: 7.26 Specimen Taken: None Instrument: Curette Amount of bleeding: Small Bleeding Control: Pressure Response to treatment: Procedure was tolerated well Tissue Applied?: NoMANUALLY TRANSCRIBED RESULTSWVUMedicine Harrison Community HospitalNo Panel Informationon [id number] IN CLINIC TODAY.MANUALLY TRANSCRIBED RESULTSNo Panel InformationOrdered By: Sulma Humphreys on 70-06-3228QvcMjlrqoWVUMedicine Harrison Community Hospital NURSING PROGon [id number] PROGHNO ID: [id number] Author: ROBBIN CONTI RN Service: ? Author [...] was told. No instructions given.NormalSouthpointSaint Joseph's Hospital 83-99-4761JNLTPekhkeqxz (GENSSP) MORE KINGSLEY JR. ([id number]) 1965 M Date Time Provider Department 04/18/25 JEROME DEL TORO GENVIKAS During your visit today, we recorded the following information about you: Tamara Goncalves RN 04/19/2025 8:06 AM Addendum G-POEM for date of service 04/25/2025. Appeal with all information including letter, study, JAMIN notes, GES result, EGG result, EGD result, CT result, faxed to [employer]/Appeals Dept at fax [phone] with confirmation. Appeal also mailed out to [employer]/Appeals Dept to the address provided. Copy placed in shared clinical office filing cabinet. Tamara Goncalves RN 05/03/2025 10:35 AM Addendum Email received from [place]/Pre-Access Denials Team: We are glad to inform you that your appeal was successfully overturned and CPT 78036 is now authorized and test needs to [...] Fully Assessed Reason for Visit: Care Coordination [8111] Cmt: Appeal for GPOEM denial Prescriptions as [...] (None) Encounter Status:Closed by TAMARA GONCALVES on [facility]/18/25[facility] [id number] (GENSSP) MORE KINGSLEY JR. ([id number]) 1965 M Date Time Provider Department 04/11/25 JEROME DEL TORO During your visit today, we recorded the following information about you: Jeremiah Stiles RN 04/11/2025 12:55 PM Signed PA for Gimoti initiated electronically through [facility] site with Anderson Code 2S6S26 started by [employer] at [phone] with fax# [phone]. Awaiting response [facility] [employer] ID# [id number] Rx Grp RXAETD Tiff Mejias LPN 04/11/2025 [...] PM PA for Gimoti initiated electronically through [facility] site with Anderson Code 2S6S26 started by [employer] at [phone] with fax# [phone]. Awaiting response [facility] [employer] ID# [id number] Rx Grp RXAETD >> MartinReba alejandrojaylenMATTY 04/11/2025 3:19 PM >> TIFF MEJIAS Wed April 11, 2025 3:19 PM Med approved thru 11/21/25 Problem List As Of Date: 04/11/2025 (None) Encounter Status:Closed by JEREMIAH STILES on 04/11/25[facility] [id number] Vaughn 04/11/2025 12:18 PM Debridement Performed by: SCOTT Vaughn Authorized by: SCOTT Vaughn Associated wounds: Wound 03/28/25 1 Diabetic Ulcer Foot Right;Plantar Consent: Consent obtained: Verbal and written Consent given by: Patient Risks discussed: Yes Debridement Details: Performed by: FLY FINISHER Type: Sharp Level: Subcutaneous Tissue, Devitalized tissue and other material debrided: Subcutaneous tissue, callus and fibrin Anesthesia administration: topical Anesthesia: EMLA Total Surface Area Debrided cm^2: 7.78 Specimen Taken: None Instrument: Curette Amount of bleeding: Medium Bleeding Control: Pressure Response to treatment: Procedure was tolerated well Tissue Applied?: NoMANUALLY TRANSCRIBED RESULTSCentral Vermont Medical CenterMedalogix SystemXeroform 4x4on 28-46-7602Khybkno in clinic todayMANUALLY TRANSCRIBED RESULTSKindred Hospital DaytonDUQI.COM SystemACETYLCHOLINE REC BINDING ABon 86-42-8220KRSGHYOOREPSW BINDING, QUALNegativeNormalNegativeSoutlong island hospitale HospitalComment on above:Order Comment: Specimen Type: BLOOD SPECIMEN Ordering Facility: [facility] Address: [address] [place], [place] [address]Result Comment: Anti-acetylcholine receptor binding antibody test is used as an aid in diagnosis ofmyasthenia gravis. A negative result cannot exclude myasthenia gravis. Clinical correlation is required.Performed By: #### ACHRAB #### [facility] CLIA [id number] [address] [place] [address] [place] [address] [place] AMERICAAcetylcholine receptor binding Ab (S) [Moles/Vol]<0.02Normal<0.21[facility]pointe HospitalComment on above: Order Comment: Specimen Type: BLOOD SPECIMEN Ordering Facility: [facility] Address: [address] [place], [place] [address]Performed By: #### ACHRAB #### [facility] CLIA [id number] [address] [place], [place] [address] [place] AMERICAAMINO ACIDS, PLASMA W/ CONSULTATIONon 81-39-4543Nqldonp [Moles/Vol]412 umol/DRrqmdy830-882Juapovmjzbw HospitalComment on above:Order Comment: Specimen Type: BLOOD SPECIMEN Ordering Facility: [facility] Address: [address] [place], [place] [address]Performed By: #### PAABI #### [facility] CLIA [id number] [address] [place] [address] [place] AMERICAAlloisoleucine [Moles/Vol]<2 Normal0-2[facility] HospitalComment on above:Order Comment: Specimen Type: BLOOD SPECIMEN Ordering Facility: [facility] Address: [address] [place], [place] [address]Performed By: #### PAABI #### [facility] CLIA [id number] [address] [place] [address] [place] AMERICAAlpha aminoadipate [Moles/Vol]<2Exvlej4-9Cwlvyklosbq HospitalComment on above:Order Comment: Specimen Type: BLOOD SPECIMEN Ordering Facility: [facility] Address: [address] [place], [place] [address]Performed By: #### PAABI #### [facility] CLIA [id number] [address] [place], [place] [address] [place] OF AMERICAAMINO ACID CONSULTATION, PLASMANormalSwashington university medical center HospitalComment on above:Order Comment: Specimen Type: BLOOD SPECIMEN Ordering Facility: [facility] Address: [address] [place], [place] [address]Result Comment: This plasma amino acid analysis is mainly notable for low levels of serine and glycine. Low levels of plasma serine and glycine is potentially related to the patient's clinical history ofdiabetes. Reference intervals from Jovani E, Pat MG, Amarjit MANDEEP, and Anderson DK: Biochemical Genetics: A Laboratory Manual, Copyright 1989 by [employer] Reference intervals not established for some amino acids. This test was developed and its performance characteristics determined by the [facility] Department of Pathology and Laboratory Medicine. It has not been cleared or approved by the FDA. The [facility] Department of Pathology and Laboratory Medicine is regulated under CLIA as qualified to perform high-complexity testing. This test is used for clinical purposes. It should not be regarded as investigational or for research.Performed By: #### PAABI #### [facility] CLIA [id number] [address] [place] [address] [place] AMERICAAMINO ACIDS REVIEW, PLASMA Reviewed by Forrest Gomez MD, Ph.D ([id number])[facility] on above:Order Comment: Specimen Type: BLOOD SPECIMEN Ordering Facility: [facility] Address: [address] [place], [place] [address]Performed By: #### PAABI #### [facility] CLIA [id number] [address] [place] [address] [place] AMERICAArginine [Moles/Vol]73 umol/AFyzajm22-777FfawttbjlbpMissouri Delta Medical Center on above:Order Comment: Specimen Type: BLOOD SPECIMEN Ordering Facility: [facility] Address: [address] [place], [place] [address]Performed By: #### PAABI #### [facility] CLIA [id number] [address] [place] [address] [place] AMERICAAsparagine [Moles/Vol]31 umol/IVhz78-75Xqzinnjudou HospitalComment on above:Order Comment: Specimen Type: BLOOD SPECIMEN Ordering Facility: [facility] Address: [address] [place], [place] [address]Performed By: #### PAABI #### [facility] CLIA [id number] [address] [place] [address] [place] AMERICAAspartate [Moles/Vol]3 umol/LNormal1-25[facility] HospitalComment on above:Order Comment: Specimen Type: BLOOD SPECIMEN Ordering Facility: [facility] Address: [address] [place], [place] [address]Performed By: #### PAABI #### [facility] CLIA [id number] [address] [place] [address], [facility]95 [place] OF AMERICACitrulline [Moles/Vol]38 umol/MQahgvm01-36Wtfxysdgqsr HospitalComment on above:Order Comment: Specimen Type: BLOOD SPECIMEN Ordering Facility: [facility] Address: [address] [place], [place] [address]Performed By: #### PAABI #### [facility] CLIA [id number] [address] [place], [place] [address] [place] AMERICACystine [Moles/Vol]50 umol/L Normal5-82[facility]inte HospitalComment on above:Order Comment: Specimen Type: BLOOD SPECIMEN Ordering Facility: [facility] Address: [address] [place], [place] [address]Performed By: #### PAABI #### [facility] CLIA [id number] [address] [place], [place] [address] [place] AMERICAGlutamate [Moles/Vol]82 umol/ZJcbwgp81-813Jyzgcdhgvty HospitalComment on above:Order Comment: Specimen Type: BLOOD SPECIMEN Ordering Facility: [facility] Address: [address] [place], [place] [address]Performed By: #### PAABI #### [facility] CLIA [id number] [address] [place], [place] [address] [place] AMERICAGlutamine [Moles/Vol]478 umol/GIfixhu520-961Ckoskjvbysj HospitalComment on above:Order Comment: Specimen Type: BLOOD SPECIMEN Ordering Facility: [facility] Address: [address] [place], [place] [address]Performed By: #### PAABI #### [facility] CLIA [id number] [address] [place], [place] [address] [place] AMERICAGlycine [Moles/Vol]125 umol/ZYxe438-711Hqpclmvkcbt HospitalComment on above:Order Comment: Specimen Type: BLOOD SPECIMEN Ordering Facility: [facility] Address: [address] [place], [place] [address]Performed By: #### PAABI #### [facility] CLIA [id number] [address] [place], [place] [address] [place] AMERICAHistidine [Moles/Vol]53 umol/CQlj54-127Womamrgcirr HospitalComment on above:Order Comment: Specimen Type: BLOOD SPECIMEN Ordering Facility: [facility] Address: [address] [place], [place] [address]Performed By: #### PAABI #### [facility] CLIA [id number] [address] [place], [place] [address] [place] AMERICAHydroxylysine [Moles/Vol]<2 High<=0Southpoint HospitalComment on above:Order Comment: Specimen Type: BLOOD SPECIMEN Ordering Facility: [facility] Address: [address] [place], [place] [address]Performed By: #### PAABI #### [facility] CLIA [id number] [address] [place], [place] [address] [place] AMERICAHydroxyproline [Moles/Vol] NormalSouthpointe HospitalComment on above:Order Comment: Specimen Type: BLOOD SPECIMEN Ordering Facility: [facility] Address: [address] [place], [place] [address]Result Comment: Unable to assay. Analytical difficultyPerformed By: #### PAABI #### [facility] CLIA [id number] [address] [place], [place] [address] [place] AMERICAIsoleucine [Moles/Vol]62 umol/HYfvezj27-951Xjpuhhhcyoi HospitalComment on above:Order Comment: Specimen Type: BLOOD SPECIMEN Ordering Facility: [facility] Address: [address] [place], [place] [address]Performed By: #### PAABI #### [facility] CLIA [id number] [address] [place] [address] [place] OF AMERICALeucine [Moles/Vol]109 umol/VVmnlbi35-702Wgxnlrnrlek HospitalComment on above:Order Comment: Specimen Type: BLOOD SPECIMEN Ordering Facility: [facility] Address: [address] [place], [place] [address]Performed By: #### PAABI #### [facility] CLIA [id number] [address] [place], [place] [address] [place] AMERICALysine [Moles/Vol]143 umol/L Qcaoqn621-554Lshqswhtgra HospitalComment on above:Order Comment: Specimen Type: BLOOD SPECIMEN Ordering Facility: [facility] Address: [address] [place], [place] [address]Performed By: #### PAABI #### [facility] CLIA [id number] [address] [place], [place] [address] [place] AMERICAMethionine [Moles/Vol]19 umol/AKxxqyh76-53Mopczwjybkf HospitalComment on above:Order Comment: Specimen Type: BLOOD SPECIMEN Ordering Facility: [facility] Address: [address] [place], [place] [address]Performed By: #### PAABI #### [facility] CLIA [id number] [address] [place] [address], [place] [address] [place] AMERICAOrnithine [Moles/Vol]43 umol/HJly04-479Ndzkgevntua HospitalComment on above:Order Comment: Specimen Type: BLOOD SPECIMEN Ordering Facility: [facility] Address: [address] [place], [place] [address]Performed By: #### PAABI #### [facility] CLIA [id number] [address] [place] [address] [place] AMERICAPhenylalanine [Moles/Vol]63 umol/YGfkbcc78-00Cnqetkgdedb HospitalComment on above:Order Comment: Specimen Type: BLOOD SPECIMEN Ordering Facility: [facility] Address: [address] [place], [place] [address]Performed By: #### PAABI #### [facility] CLIA [id number] [address] [place] [id number] [place] AMERICAProline [Moles/Vol]237 umol/SQwamip18-951Opraawbzgnf HospitalComment on above:Order Comment: Specimen Type: BLOOD SPECIMEN Ordering Facility: [facility] Address: [address] [place], [place] [address]Performed By: #### PAABI #### [facility] CLIA [id number] [address] [place] [address], [place] [address] [place] AMERICASarcosine [Moles/Vol]<2High <=0[facility] HospitalComment on above:Order Comment: Specimen Type: BLOOD SPECIMEN Ordering Facility: [facility] Address: [address] [place], [place] [address]Performed By: #### PAABI #### [facility] CLIA [id number] [address] [place], [place] [address] [place] AMERICASerine [Moles/Vol]41 umol/L Onr75-211Ndvjrlivcgh HospitalComment on above:Order Comment: Specimen Type: BLOOD SPECIMEN Ordering Facility: [facility] Address: [address] [place], [place] [address]Performed By: #### PAABI #### [facility] CLIA [id number] [address] [place], [place] [address] [place] AMERICATaurine [Moles/Vol]58 umol/L Jwzkhk51-404Cygqbubvdip HospitalComment on above:Order Comment: Specimen Type: BLOOD SPECIMEN Ordering Facility: [facility] Address: [address] [place], [place] [address]Performed By: #### PAABI #### [facility] CLIA [id number] [address] [place], [place] [address] [place] AMERICAThreonine [Moles/Vol]109 umol/BMzvdzn50-660Dnuzklqvvlq HospitalComment on above:Order Comment: Specimen Type: BLOOD SPECIMEN Ordering Facility: [facility] Address: [address] [place], [place] [address]Performed By: #### PAABI #### [facility] CLIA [id number] [address] [place], [place] [id number] [place] AMERICATyrosine [Moles/Vol]68 umol/[id number] HospitalComment on above:Order Comment: Specimen Type: BLOOD SPECIMEN Ordering Facility: [facility] Address: [address] [place], [place] [address]Performed By: #### PAABI #### [facility] CLIA [id number] [place] [address] [place] AMERICAValine [Moles/Vol]227 umol/L Dwhhko260-185Xfxnvgvkitd HospitalComment on above:Order Comment: Specimen Type: BLOOD SPECIMEN Ordering Facility: [facility] Address: [address] [place], [place] [address]Performed By: #### [id number] #### [facility] CLIA [id number] [address] [place] [address] [place] AMERICACARNITINE FREE AND TOTAL, PLASMAon [id number] [Moles/Vol]39.0 umol/JOonnpb85.0-53.0[facility] Comment on above:Order Comment: Specimen Type: BLOOD SPECIMEN Ordering Facility: [facility] Address: [address] [place], [place] [address]Performed By: #### CARNPL #### [facility] CLIA [id number] [address] [place] [address] [place] AMERICACarnitine [Moles/Vol]49.3 umol/DXqbeay29.4-66.0SoSaint Mary's Hospital of Blue SpringsComment on above:Order Comment: Specimen Type: BLOOD SPECIMEN Ordering Facility: [facility] Address: [address] [place], [place] [address]Performed By: #### CARNPL #### [facility] CLIA [id number] [address] [place] [address] [place] AMERICACarnitine esters [Moles/Vol] 10.3 umol/LNormal3.0-15.6SoSaint Mary's Hospital of Blue SpringsComment on above:Order Comment: Specimen Type: BLOOD SPECIMEN Ordering Facility: [facility] Address: [address] [place], [place] [address]Performed By: #### CARNPL #### [facility] IA [id number] [address] [place] [address] [place] AMERICACarnitine esters/Carnitine.free (C0) [Molar ratio]0.0Tqftuo6.1-0.7SoSaint [facility] Comment on above:Order Comment: Specimen Type: BLOOD SPECIMEN Ordering Facility: [facility] Address: [address] [place], [place] [address]Result Comment: NOTE: The determination of the plasma [...] determined by the Pathology and Laboratory Medicine [place] at the [facility]. The U.S. Food and Drug Administration has not approved or cleared this test, however, FDA clearance or approval is not currently required for clinical use.Performed By: #### CARNPL #### [facility] CLIA [id number] [address] AMERICACK SerPl-cCncon 97-33-3770YT [Catalytic activity/Vol]41 U/GDss77-195Orvcquzkzwj HospitalComment on above: Order Comment: Specimen Type: BLOOD SPECIMEN Ordering Facility: [facility] Address: [address] [place], [place] [address]Performed By: #### 1988-5, 2157-6 #### [facility] [id number] [address] [place], [place] [address]CNOVon [id number] Office Visit (GENSSP) MORE KINGSLEY JR. ([id number]) 1965 M Date Time Provider Department 04/10/25 10:00 AM JEROME DEL TORO GENVIKAS During your visit today, we recorded the following information about you: Pulse Blood pressure Weight Height 101/minute 149/84 115 kg 1.778 m [place], [place] 04/10/2025 10:33 AM Signed What is [...] 10:33 AM Signed [facility] [place] Gastroparesis/Dysmotility Consultation SERVICE DATE: 04/10/2025 SERVICE TIME: 10:04 AM PRIMARY CARE PHYSICIAN: No primary care provider on file. Imad Asanew [address] [address] My final recommendations will be communicated back [...] obtained. NAME: More Kingsley Jr. 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 He denies any significant psychiatric history and [...] that his mattress qual (more content not included)...NormalNationwide Children's HospitalOVOffice Visit ([facility]STSP) MORE KINGSLEY ([id number]) 1965 M Date Time Provider Department 04/10/25 [...] Medications - Does the patient see a body painter for chronic pain?No - Is the [...] - Has the patient met with a black top raker for diet recommendations with Gastroparesis? No - Jejunostomy (J-tube): _No - Gastrostomy (G-tube): No - Gastro-Jejunostomy (GJ-tube): _No - Nasojejunal (NJ-tube): _No - Nasogastric (NG-tube): _No - TPN (IV): _No - IV home hydration (IV): _No Medical Records - Has the patient had a smart capsule study completed? No - Does the patient have a history of any foregut surgery (vagotomy, hiatal hernia repair/ARMESH Fundoplication, Heller Myotomy, gastrectomy, gastric bypass)?No If [...] range = 0-60%). (more content not included)...Normal [facility] Children's HospitalPNon [id number] (GENSSP) MORE KINGSLEY JR. ([id number]) 1965 M LV Date Time Provider Department [...] EUS, OR TUBE INTERVENTIONS [GI2] Order #: [id number] FUTURE sucralfate (CARAFATE) 1 gram tabletTake 1 [...] for 4 weeks. Encounter Status:Closed by JEROME DE LTORO on 04/10/25NoSalem [facility] Hospitalpierre [id number] [Mass/Vol]2.7 mg/dLHigh<0.9[facility] HospitalComment on above:Order Comment: Specimen Type: BLOOD SPECIMEN Ordering Facility: [facility] Address: [address] [place], [place] [address]Performed By: #### 1988-5, 2157-6 #### [facility] CLIA [id number] Omar method (Bld) [Velocity]on 16-25-8333SYN (Bld) [Velocity]66 mm/hHigh0-15[facility] HospitalComment on above:Order Comment: Specimen Type: BLOOD SPECIMEN Ordering Facility: [facility] Address: [address] [place], [place] [address]Performed By: #### LACPYR #### [facility] CLIA [id number] [address] [place] [address] [place] LSVBVBHFTL24 Ab Ser-aCncon 27-67-4834Xycrwjrfr decarboxylase 65 Ab Qn (S)<5.0Normal<=5.0[facility] HospitalComment on above:Order Comment: Specimen Type: BLOOD SPECIMEN Ordering Facility: [facility] Address: [address] [place], [place] [address]Result Comment: Anti-glutamic acid decarboxylase antibody (GAD65) test [...] correlation is required.Performed By: #### LACPYR #### [facility] CLIA [id number] [address] [place] [address] [place] AMERICAGlutamate decarboxylase 65 Ab Qn (S)on 40-00-8001PPMDOOPJ ACID DECARBOXYLAS AB QUALITATIVENegativeNormal NegativeSwashington university medical center HospitalComment on above:Order Comment: Specimen Type: BLOOD SPECIMEN Ordering Facility: [facility] Address: [address] [place], [place] [address]Performed By: #### LACPYR #### [facility] CLIA [id number] [address] [place] [address] [place] GTBPILNSaC6m (Bld)on 04-10-2025 Average glucose Estimated from glycated hemoglobin (Bld) [Mass/Vol]269 mg/dL NormalSomercy mccune-brooks hospital HospitalComment on above:Order Comment: Specimen Type: BLOOD SPECIMEN Ordering Facility: [facility] Address: [address] [place], [place] [address]Result Comment: eAG: (Estimated average glucose) is a calculated value from HgbA1c and is hr representative of the average blood glucose level in the last 2-3 month period.Performed By: #### 98700-0 #### [facility] CLIA [id number] [address] [place] [address] [place] FOELPXEMcM0q (Bld) [Mass fraction] 11.0 %High4.3-5.6[facility] HospitalComment on above:Order Comment: Specimen Type: BLOOD SPECIMEN Ordering Facility: [facility] Address: [address] [place], [place] [address]Result Comment: [place] [employer] guidelines indicate that patients with HgbA1c in the range 5.7-6.4% are at increased risk for development of diabetes, and intervention by lifestyle modification may be beneficial. HgbA1c greater or equal to 6.5% is considered diagnostic of diabetes.Performed By: #### 61258-4 #### [facility] CLIA [id number] [address] [place] [address] [place] AMERICAIgA SerPl-mCncon 04-10-2025 IgA [Mass/Vol]608 mg/tNHjwb78-723Shqilitcyng HospitalComment on above:Order Comment: Specimen Type: BLOOD SPECIMEN Ordering Facility: [facility] Address: [address] [place], [place] [address]Performed By: #### 2465-3, 2458-8, 2472-9 #### [facility] CLIA [id number] [address] [place] [address] [place] AMERICAIgG SerPl-mCncon 04-10-2025 IgG [Mass/Vol]3158 mg/xWWdmo366-3607Jdtezkcswai HospitalComment on above:Order Comment: Specimen Type: BLOOD SPECIMEN Ordering Facility: [facility] Address: [address] [place], [place] [address]Performed By: #### LACPYR #### [facility] CLIA [id number] [address] [place] [address] [place] AMERICAIgM SerPl-mCncon 04-10-2025 IgM [Mass/Vol]110 mg/kRHcctal01-935Hlpsucapspi HospitalComment on above:Order Comment: Specimen Type: BLOOD SPECIMEN Ordering Facility: [facility] Address: [address] [place], [place] [address]Performed By: #### LACPYR #### [facility] CLIA [id number] [address] [place] [address] [place] AMERICALDH SerPl-cCncon 04-10-2025 LDH [Catalytic activity/Vol]159 U/CFdfetd760-838Cjrqpornhek HospitalComment on above:Order Comment: Specimen Type: BLOOD SPECIMEN Ordering Facility: [facility] Address: [address] [place], [place] [address]Performed By: #### [id number] #### [facility] CLIA [id number] [address] [place] [address] [place] AMERICAORGANIC ACIDS UR, QUANT W/CONSULTon 36513-Kvcnwfaqpakccucd/Creatinine (U) [Molar ratio]<0.4Low 0.6-17.7[facility] HospitalComment on above:Order Comment: Specimen Type: URINE SPECIMEN Ordering Facility: [facility] Address: [address] [place], [place] [address]Performed By: #### [id number] #### [facility] CLIA [id number] [address] [place] [address] [place]2- Hydroxyisovalerate/Creatinine (U) [Molar ratio]0.1 umol/mmolCrNormal0.0-0.[address] [facility] HospitalComment on above:Order Comment: Specimen Type: URINE SPECIMEN Ordering Facility: [facility] Address: [address] [place], [place] [address]Performed By: #### [id number] #### [facility] CLIA [id number] [address] [place] [address] [place] JCZOVOU5-Vgaodc-3-hydroxybutyrate (C5-OH)/Creatinine (U) [Molar ratio]<0.4Lymyhg6.0-1.3[facility] HospitalComment on above:Order Comment: Specimen Type: URINE SPECIMEN Ordering Facility: [facility] Address: [address] [place], [place] [address]Performed By: #### [id number] #### [facility] CLIA [id number] [address] [place] [address] [place]2- Methylbutyrylglycine/Creatinine (U) [Molar ratio]<0.2Ctcasv9.0-0.4[facility] HospitalComment on above:Order Comment: Specimen Type: URINE SPECIMEN Ordering Facility: [facility] Address: [address] [place], [place] [address]Performed By: #### [id number] #### [facility] CLIA [id number] [address] [place] [address] [place]2-Methylcitrate/Creatinine (U) [Molar ratio]<1.6Gxjgku8.0-13.9[facility] HospitalComment on above:Order Comment: Specimen Type: URINE SPECIMEN Ordering Facility: [facility] Address: [address] [place], [place] [address]Performed By: #### [id number] #### [facility] CLIA [id number] [address] [place] [address] [place]2-Oxoadipate/Creatinine (U) [Molar ratio]<1.3Xnfbsk2.0-3.3[facility] HospitalComment on above:Order Comment: Specimen Type: URINE SPECIMEN Ordering Facility: [facility] Address: [address] [place], [place] [address]Performed By: #### [id number] #### [facility] CLIA [id number] [address] [place] [address] [place]3- Hydroxyglutarate/Creatinine (U) [Molar ratio]0.0 umol/mmolCrNormal0.0-0.7 [facility] FultonComment on above:Order Comment: Specimen Type: URINE SPECIMEN Ordering Facility: [facility] Address: [address] [place], [place] [address]Performed By: #### [id number] #### [facility] CLIA [id number] [address] [place] [address] [place]3- Hydroxyisovalerate/Creatinine (U) [Molar ratio]2.9 umol/mmolCrNormal2.1-27.3 [facility] FultonComment on above:Order Comment: Specimen Type: URINE SPECIMEN Ordering Facility: [facility] Address: [address] [place], [place] [address]Performed By: #### [id number] #### [facility] CLIA [id number] [address] [place] [address] [place]3- Methylcrotonylglycine/Creatinine (U) [Molar ratio]<0.3Normal<0.3SMercy Hospital St. LouisComment on above:Order Comment: Specimen Type: URINE SPECIMEN Ordering Facility: [facility] Address: [address] [place], [place] [address]Performed By: #### [id number] #### [facility] CLIA [id number] [address] [place] [address] [place]3- Methylglutaconate/Creatinine (U) [Molar ratio]0.3 umol/mmolCrNormal0.0-2.0 [facility]Commun[facility] on above:Order Comment: Specimen Type: URINE SPECIMEN Ordering Facility: [facility] Address: [address] [place], [place] [address]Performed By: #### [id number] #### [facility] CLIA [id number] [address] [place] [address] [place]3-Methylglutarate/Creatinine (U) [Molar ratio]0.2 umol/mmolCrNormal0.0-0.6SoSaint Mary's Hospital of Blue SpringsComment on above:Order Comment: Specimen Type: URINE SPECIMEN Ordering Facility: [facility] Address: [address] [place], [place] [address]Performed By: #### [id number] #### [facility] CLIA [id number] [address] [place] [address] [place]4- Hydroxyphenylacetate/Creatinine (U) [Molar ratio]10.8 umol/mmolCrNormal5.7-147.5 [facility] FultonComment on above:Order Comment: Specimen Type: URINE SPECIMEN Ordering Facility: [facility] Address: [address] [place], [place] [address]Performed By: #### [id number] #### [facility] CLIA [id number] [address] [place] [address] [place]4- Hydroxyphenyllactate/Creatinine (U) [Molar ratio]20.8 umol/mmolCrNormal1.3-23.0 [facility] FultonComment on above:Order Comment: Specimen Type: URINE SPECIMEN Ordering Facility: [facility] Address: [address] [place], [place] [address]Performed By: #### [id number] #### [facility] CLIA [id number] [address] [place] [address] [place]4- Hydroxyphenylpyruvate/Creatinine (U) [Molar ratio]0.0 umol/mmolCrNormal<=0.0 [facility]Commun[facility] on above:Order Comment: Specimen Type: URINE SPECIMEN Ordering Facility: [facility] Address: [address] [place], [place] [address]Performed By: #### [id number] #### [facility] CLIA [id number] [address] [place] [address] [place]5-Oxoproline/Creatinine (U) [Molar ratio]1.5 umol/mmolCrNormal0.4-3.1[facility] HospitalComment on above: Order Comment: Specimen Type: URINE SPECIMEN Ordering Facility: [facility] Address: [address] [place], [place] [address]Performed By: #### [id number] #### [facility] CLIA [id number] [address] [place] [address] [place] AMERICAAcetoacetate/Creatinine (U) [Molar ratio]<0.9High0.0-0.5[facility] HospitalComment on above:Order Comment: Specimen Type: URINE SPECIMEN Ordering Facility: [facility] Address: [address] [place], [place] [address]Performed By: #### [id number] #### [facility] CLIA [id number] [address] [place] [address] [place] AMERICAAconitate/Creatinine (U) [Molar ratio]19.3 umol/mmolCrNormal8.5-109.6SoSaint [facility]'s Hospital of Blue SpringsComment on above:Order Comment: Specimen Type: URINE SPECIMEN Ordering Facility: [facility] Address: [address] [place], [place] [address]Performed By: #### [id number] #### [facility] CLIA [id number] [address] [place] [address] [place] AMERICAAdipate/Creatinine (U) [Molar ratio]1.3 umol/mmolCrNormal0.3-9.2[facility] HospitalComment on above: Order Comment: Specimen Type: URINE SPECIMEN Ordering Facility: [facility] Address: [address] [place], [place] [address]Performed By: #### [id number] #### [facility] CLIA [id number] [address] [place] [address] [place] AMERICAAlpha hydroxybutyrate/Creatinine (U) [Molar ratio]1.0 umol/mmolCrNormal0.0-2.7 [facility] FultonComment on above:Order Comment: Specimen Type: URINE SPECIMEN Ordering Facility: [facility] Address: [address] [place], [place] [address]Performed By: #### [id number] #### [facility] CLIA [id number] [address] [place] [address] [place] AMERICAAlpha ketoglutarate/Creatinine (U) [Molar ratio]6.2 umol/mmolCrNormal0.2-42.7 [facility] HospitalComment on above:Order Comment: Specimen Type: URINE SPECIMEN Ordering Facility: [facility] Address: [address] [place], [place] [address]Performed By: #### [id number] #### [facility] CLIA [id number] [address] [place] [address] [place] AMERICABenzoate/Creatinine (U) [Molar ratio]<12.3Louofk6.0-14.6[facility] HospitalComment on above:Order Comment: Specimen Type: URINE SPECIMEN Ordering Facility: [facility] Address: [address] [place], [place] [address]Performed By: #### [id number] #### [facility] CLIA [id number] [address] [place] [address] [place] AMERICABeta hydroxybutyrate/Creatinine (U) [Molar ratio]<1.2Zeblma9.1-2.6[facility] HospitalComment on above:Order Comment: Specimen Type: URINE SPECIMEN Ordering Facility: [facility] Address: [address] [place], [place] [address]Performed By: #### [id number] #### [facility] CLIA [id number] [address] [place] [address] [place] AMERICAButyrylglycine/Creatinine (U) [Molar ratio]0.0 umol/mmolCrNormal0.0-0.7[facility] HospitalComment on above:Order Comment: Specimen Type: URINE SPECIMEN Ordering Facility: [facility] Address: [address] [place], [place] [address]Performed By: #### [id number] #### [facility] CLIA [id number] [address] [place] [address] [place] AMERICACreatinine (U) [Mass/Vol] 275.7 mg/fWBhseeu44.8-314.5[facility] HospitalComment on above:Order Comment: Specimen Type: URINE SPECIMEN Ordering Facility: [facility] Address: [address] [place], [place] [address]Performed By: #### [id number] #### [facility] CLIA [id number] [address] [place] [address] [place] AMERICAEthylmalonate/Creatinine (U) [Molar ratio]2.7 umol/mmolCrNormal0.5-6.2[facility] HospitalComment on above: Order Comment: Specimen Type: URINE SPECIMEN Ordering Facility: [facility] Address: [address] [place], [place] [address]Performed By: #### [id number] #### [facility] CLIA [id number] [address] [place] [address] [place] AMERICAFumarate/Creatinine (U) [Molar ratio]1.9 umol/mmolCrNormal0.3-2.6[facility] FultonComment on above: Order Comment: Specimen Type: URINE SPECIMEN Ordering Facility: [facility] Address: [address] [place], [place] [address]Performed By: #### [id number] #### [facility] CLIA [id number] [address] [place] [address] [place] AMERICAGlutarate/Creatinine (U) [Molar ratio]0.1 umol/mmolCrNormal0.0-1.4[facility] HospitalComment on above: Order Comment: Specimen Type: URINE SPECIMEN Ordering Facility: [facility] Address: [address] [place], [place] [address]Performed By: #### [id number] #### [facility] CLIA [id number] [address] [place] [address] [place] AMERICAHexanoylglycine/Creatinine (U) [Molar ratio]<0.8Euoblc0.0-0.1[facility] HospitalComment on above:Order Comment: Specimen Type: URINE SPECIMEN Ordering Facility: [facility] Address: [address] [place], [place] [address]Performed By: #### [id number] #### [facility] CLIA [id number] [address] [place] [address] [place] AMERICAIsobutyrylglycine/Creatinine (U) [Molar ratio]<0.6Xvzpzl7.0-1.2[facility] HospitalComment on above:Order Comment: Specimen Type: URINE SPECIMEN Ordering Facility: [facility] Address: [address] [place], [place] [address]Performed By: #### [id number] #### [facility] CLIA [id number] [address] [place] [address] [place] AMERICAIsocitrate/Creatinine (U) [Molar ratio]62.1 umol/mmolCrNormal9.1-271.9[facility] HospitalComment on above:Order Comment: Specimen Type: URINE SPECIMEN Ordering Facility: [facility] Address: [address] [place], [place] [address]Performed By: #### [id number] #### [facility] CLIA [id number] [address] [place] [address] [place] AMERICALactate/Creatinine (U) [Molar ratio]23.5 umol/mmolCrNormal2.9-47.2[facility] HospitalComment on above: Order Comment: Specimen Type: URINE SPECIMEN Ordering Facility: [facility] Address: [address] [place], [place] [address]Performed By: #### [id number] #### [facility] CLIA [id number] [address] [place] [address] [place] AMERICAMalate/Creatinine (U) [Molar ratio]0.8 umol/mmolCrNormal0.0-1.1[facility] HospitalComment on above:Order Comment: Specimen Type: URINE SPECIMEN Ordering Facility: [facility] Address: [address] [place], [place] [address]Performed By: #### [id number] #### [facility] CLIA [id number] [address] [place] [address] [place] AMERICAMalonate/Creatinine (U) [Molar ratio]0.0 umol/mmolCrNormal0.0-0.1[facility] HospitalComment on above: Order Comment: Specimen Type: URINE SPECIMEN Ordering Facility: [facility] Address: [address] [place], [place] [address]Performed By: #### [id number] #### [facility] CLIA [id number] [address] [place] [address] [place] AMERICAMethylmalonate/Creatinine (U) [Molar ratio]<0.3Ijppvu8.0-0.6[facility] HospitalComment on above:Order Comment: Specimen Type: URINE SPECIMEN Ordering Facility: [facility] Address: [address] [place], [place] [address]Performed By: #### [id number] #### [facility] CLIA [id number] [address] [place] [address] [place] AMERICAMethylsuccinate/Creatinine (U) [Molar ratio]0.4 umol/mmolCrNormal0.0-1.4[facility] HospitalComment on above:Order Comment: Specimen Type: URINE SPECIMEN Ordering Facility: [facility] Address: [address] [place], [place] [address]Performed By: #### [id number] #### [facility] CLIA [id number] [address] [place] [address] [place]-acetylaspartate/Creatinine (U) [Molar ratio]0.8 umol/mmolCrNormal0.1-8.9[facility] HospitalComment on above:Order Comment: Specimen Type: URINE SPECIMEN Ordering Facility: [facility] Address: [address] [place], [place] [address]Performed By: #### [id number] #### [facility] CLIA [id number] [address] [place] [address] [place] [place]-acetyltyrosine/Creatinine (U) [Molar ratio]0.3 umol/mmolCrNormal0.0-1.2[facility] HospitalComment on above:Order Comment: Specimen Type: URINE SPECIMEN Ordering Facility: [facility] Address: [address] [place], [place] [address]Performed By: #### [id number] #### [facility] CLIA [id number] [address] [place] [address] [place] AMERICAOxalate/Creatinine (U) [Molar ratio]1.7 umol/mmolCrNormal0.7-12.4[facility] HospitalComment on above: Order Comment: Specimen Type: URINE SPECIMEN Ordering Facility: [facility] Address: [address] [place], [place] [address]Performed By: #### [id number] #### [facility] CLIA [id number] [address] [place] [address] [place] AMERICAPyruvate/Creatinine (U) [Molar ratio]0.6 umol/mmolCrNormal0.1-2.6[facility] HospitalComment on above: Order Comment: Specimen Type: URINE SPECIMEN Ordering Facility: [facility] Address: [address] [place], [place] [address]Performed By: #### [id number] #### [facility] CLIA [id number] [address] [place], [place] [id number] [place] AMERICASebacate (C8)/Creatinine (U) [Molar ratio]<3.4High0.0-0.3[facility] HospitalComment on above:Order Comment: Specimen Type: URINE SPECIMEN Ordering Facility: [facility] Address: [address] [place], [place] [address]Performed By: #### [id number] #### [facility] CLIA [id number] [address] [place] [address] [place] AMER[place]ASuberate/Creatinine (U) [Molar ratio]0.9 umol/mmolCrNormal0.0-7.4[facility] HospitalComment on above: Order Comment: Specimen Type: URINE SPECIMEN Ordering Facility: [facility] Address: [address] [place], [place] [address]Performed By: #### [id number] #### [facility] CLIA [id number] [address] [place] [address] [place] AMERICASuberylglycine/Creatinine (U) [Molar ratio]0.0 umol/mmolCrNormal<=0.0[facility] HospitalComment on above: Order Comment: Specimen Type: URINE SPECIMEN Ordering Facility: [facility] Address: [address] [place], [place] [address]Performed By: #### [id number] #### [facility] CLIA [id number] [address] [place] [address] [place] AMERICASuccinate/Creatinine (U) [Molar ratio]0.7 umol/mmolCrNormal0.3-27.4[facility] HospitalComment on above: Order Comment: Specimen Type: URINE SPECIMEN Ordering Facility: [facility] Address: [address] [place], [place] [address]Performed By: #### [id number] #### [facility] CLIA [id number] [address] [place] [address] [place] AMERICASuccinylacetone/Creatinine (U) [Molar ratio]<0.4Normal<0.4[facility] HospitalComment on above:Order Comment: Specimen Type: URINE SPECIMEN Ordering Facility: [facility] Address: [address] [place], [place] [address]Performed By: #### [id number] #### [facility] CLIA [id number] [address] [place], [place] [address]UOA CONSULTATIONGolden Valley Memorial HospitalComment on above:Order Comment: Specimen Type: URINE SPECIMEN Ordering Facility: [facility] Address: [address] [place], [place] [address]Result Comment: This urine organic acid analysis shows [...] performance characteristics determined by the [facility] Neurometabolism [facility]. It has not been cleared or approved by the US Food and Drug Administration. The FDA had determined that such clearance or approval is not necessary.Performed By: #### [id number] #### [facility] CLIA [id number] [address] [place], [place] [address]UO REVIEWReviewed by Forrest Gomez MD, Ph.D ([id number])[facility] on above:Order Comment: Specimen Type: URINE SPECIMEN Ordering Facility: [facility] Address: [address] [place], [place] [address]Performed By: #### [id number] #### [facility] CLIA [id number] [address] [place] [address] STATES [facility] HOSPITALUracil/Creatinine (U) [Molar ratio]<0.0Ckzlro8.0-5.1SMercy Hospital St. LouisCommunson healthcare [facility]ist[facility] on above:Order Comment: Specimen Type: URINE SPECIMEN Ordering Facility: [facility] Address: [address] [place], [place] [address]Performed By: #### [id number] #### [facility] CLIA [id number] [address] [place] [address] [place] AMERICAPYRUVATE+LACTATE BLon 47-91-0000Aivstfg [Moles/Vol]2.1 mmol/LNormal0.5-2.2[facility] HospitalComment on above:Order Comment: Specimen Type: BLOOD SPECIMEN Ordering Facility: [facility] Address: [address] [place] [address] Comment: This test was developed, and its performance characteristics determined by the [facility] Department of Pathology and Laboratory Medicine. It has not been cleared or approved [facility] FDA. The [facility] Department of Pathology and Laboratory Medicine is regulated under CLIA as qualified to perform high- complexity testing. This test is used for clinical purposes. It should not be regarded as investigational or for research.Performed By: #### [id number] #### [facility] CLIA [id number] [address] [place] [address] [place] AMERICAPyruvate (Bld) [Moles/Vol] 0.05 mmol/LNormal0.03-0.10[facility] HospitalComment on above:Order Comment: Specimen Type: BLOOD SPECIMEN Ordering Facility: [facility] Address: [address] [place] [address] Comment: This test was developed, and its performance characteristics determined by the [facility] Department of Pathology and Laboratory Medicine. It has not been cleared or approved [facility] FDA. The [facility] Department of Pathology and Laboratory Medicine is regulated under CLIA as qualified to perform high- complexity testing. This test is used for clinical purposes. It should not be regarded as investigational or for research.Performed By: #### [id number] #### [facility] CLIA [id number] [address] [place] [address] [place] AMERICAVOLTAGE GATED CA IGGon 04-10-2025P/Q-TYPE CALCIUM CHANNEL ANTIBODY0.0 pmol/LNormal0.0-24.5[facility] HospitalComment on above:Order Comment: Specimen Type: BLOOD SPECIMEN Ordering Facility: [facility] Address: [address] [place] [address]Xecukf Comment: INTERPRETIVE INFORMATION: P/Q-Type Calcium Channel Antibody 0.0 to 24.5 pmol/L ............. Negative 24.6 to 45.6 pmol/L ............ Indeterminate 45.7 pmol/L or greater.......... Positive This test was developed and its performance characteristics determined by [facility]. It has not been cleared or approved by the US Food and Drug Administration. This test was performed in a CLIA certified laboratory and is intended for clinical purposes. Performed By: [facility] [address] [place] [address] Case Resolution Specialist: Warren Simmons MD, PhD CLIA Number: [id number] By: #### LACPYR #### [facility] CLIA [id number] [address] [place] [address] [place] AMERICAVOLTAGE-GATED POTASSIUM SZYMANSKI ABon 41-70-8772UKLDEVT-GATED POTASSIUM CHANNEL AB, SER0 pmol/LNormal0-31 [facility]- FultonComment on above:Order Comment: Specimen Type: BLOOD SPECIMEN Ordering Facility: [facility] Address: [address] [place], [place] [address]Result Comment: INTERPRETIVE INFORMATION: Voltage-Gated Potassium Channel (VGKC) [...] developed and its performance characteristics determined by [facility]. It has not been cleared or approved by the US Food and Drug Administration. This test was performed in a CLIA certified laboratory and is intended for clinical purposes. Performed By: [facility] [address] [place] [address] Case Resolution Specialist: Warren Simmons MD, PhD CLIA Number: [id number] By: #### VGKCAB #### [facility] CLIA [id number] [address] [place], [place] [address]GIZCtn 59-87-2250UJLSAoscpndkm (GASTSP) MORE KINGSLEY JR. ([id number]) 1965 M Date Time Provider Department 04/05/25 [...] 04/05/2025 (None) Encounter Status:Closed by ORLINDarynSHENA on 04/05/25[facility] [id number] Vaughn 03/28/2025 4:19 PM Debridement Performed by: SCOTT Vaughn Authorized by: SCOTT Vaughn Consent: Consent obtained: Verbal and written Consent given by: Patient Risks discussed: Yes Debridement Details: Performed by: FLY FINISHER Type: Sharp Level: Subcutaneous Tissue, Devitalized tissue and other material debrided: Callus and subcutaneous tissue Anesthesia administration: topical Anesthesia: EMLA Total Surface Area Debrided cm^2: 10.37 Specimen Taken: None Instrument: Curette Amount of bleeding: Medium Bleeding Control: Pressure Response to treatment: Procedure was tolerated well Tissue Applied?: NoMANUALLY TRANSCRIBED RESULTSWVUMedicine Harrison Community HospitalCBC AND AUTO DIFFon 25-28-7056YXWVLYVO BASOPHIL0.2 X10E9/LNormal0.0-0.2ProMedDoctors Hospital of MantecaComment on above:Performed By: #### CBCA, CMP #### [facility] ([id number]) [address] [place] [address]FRPTGFAU NEUTROPHIL6.0 X10E9/LNormal1.5-6.6[facility] CenterComment on above:Performed By: #### CBCA, CMP #### [facility] ([id number]) [address] [place] [address] 69[address]Avskhswqy/100 WBC (Bld)2.4 %NormalProHca [facility] Healthcare [facility] Comment on above:Performed By: #### CBCA, CMP #### [facility] ([id number]) [address] [place] [address] 60[address]Qwrbivjdfoi (Bld) [#/Vol]0.3 10*3/uLNormal0.0-0.4[facility] CenterComment on above:Performed By: #### CBCA, CMP #### [facility] ([id number]) [address] [place] [address] 84[address]Tosainypien/100 WBC (Bld)3.4 %NormalFairfield Medical Center Comment on above:Performed By: #### CBCA, CMP #### [facility] ([id number]) [address] [place] [address] 34903Npkfvkaztkp distribution width (RBC) [Ratio]15.0 %Normal 11.5-15.0[facility] CenterComment on above:Performed By: #### CBCA, CMP #### [facility] ([id number]) [address] [place] [address] 19770Ncmxicccnr (Bld) [Volume fraction]40.0 %Bpzqxg01-81ElnYkduiwHca Houston Healthcare NorthwestComment on above:Performed By: #### CBCA, CMP #### [facility] ([id number]) [address] [place] [address] 38894Cqbysaxrlc (Bld) [Mass/Vol]13.7 g/cXKcwleu28.0-17.0[facility] CenterComment on above:Performed By: #### CBCA, CMP #### [facility] ([id number]) [address] [place] [address] 26[address]Wifawbvuaht (Bld) [#/Vol]2.1 10*3/uLNormal1.0-3.5PSt. Mary's Medical Center, Ironton CampusComment on above:Performed By: #### CBCA, CMP #### [facility] ([id number]) [address] [place] [address] 48523Qxyczuiqkfk/100 WBC (Bld)21.1 %NormalFairfield Medical Center Comment on above:Performed By: #### CBCA, CMP #### [facility] ([id number]) [address] [place] [address] 926[address]HUL (RBC) [Entitic mass]28.8 rfYsjaaf71-98AiaHiozuuFairfield Medical CenterComment on above:Performed By: #### CBCA, CMP #### [facility] ([id number]) [address] [place] [address] 335[address]GOGM (RBC) [Mass/Vol]34.3 g/nNIvjilj50-58TxrAyqxjmFairfield Medical CenterComment on above:Performed By: #### CBCA, CMP #### [facility] ([id number]) [address] [place] [address] 57378UYZ (RBC) [Entitic vol]84 rGWzsorb02-980XdqGzdglfFairfield Medical CenterComment on above:Performed By: #### CBCA, CMP #### [facility] ([id number]) [address] [place] [address] 35393Wlcxvjony (Bld) [#/Vol]1.4 10*3/uLHigh0-0.9[facility] Medical CenterComment on above:Performed By: #### CBCA, CMP #### [facility] ([id number]) [address] [place] [address] 84366Rlmwrtonj/100 WBC (Bld)13.4 %[facility] Comment on above:Performed By: #### CBCA, CMP #### [facility] ([id number]) [address] [place] [address] 36213Soebbhendrv/100 WBC (Bld)59.7 %[facility] Comment on above:Performed By: #### CBCA, CMP #### [facility] ([id number]) [address] [place] [address] 35189Wvrslvaw mean volume (Bld) [Entitic vol]8.1 fLNormal7-12 [facility] CenterComment on above:Performed By: #### CBCA, CMP #### [facility] ([id number]) [address] [place] [address] 72351Eapufinfg (Bld) [#/Vol]334 10*3/yDDihvdh376-956HneWsxyrb [facility]remont HospitalComment on above:Performed By: #### ARELY, CMP #### [facility] ([id number]) [address] [place] [address] 61457GDR COUNT4.76 X10E12/LNormal4.10-5.70[facility] Comment on above:Performed By: #### ARELY, CMP #### [facility] ([id number]) [address] [place] [address] 33583PTJ (Bld) [#/Vol]10.1 10*3/uLNormal4.0-11.0ProHca Houston Healthcare NorthwestComment on above:Performed By: #### ARELY, CMP #### [facility] ([id number]) [address] [place] [address] 50944EDHQWFVLIUVSM METABOLIC PANELon 59-94-4649Fcrjfqv [Mass/Vol]2.9 g/dLLow3.2-5.3PSt. Mary's Medical Center, Iront[facility] CampusComment on above:Performed By: #### ARELY, CMP #### [facility] ([id number]) [address] [place] [address], [place] [address]IJN [Catalytic activity/Vol]95 U/BEnewxe75-522VjgBufbmtHca Houston Healthcare NorthwestComment on above:Performed By: #### ARELY, CMP #### [facility] ([id number]) [address] [place] [address], [place] [address]PME [Catalytic activity/Vol]15 U/LNormal0-40ProHca Houston Healthcare NorthwestComment on above:Performed By: #### CBCRachana, CMP #### [facility] ([id number]) [address] [place] [address] 540[address]Wcnwc gap [Moles/Vol]7 mmol/LNormal5-15ProHca Houston Healthcare NorthwestComment on above:Performed By: #### ARELY, CMP #### [facility] ([id number]) [address] [place] [address], [place] [address]LHB [Catalytic activity/Vol]18 U/LNormal0-41[facility] Medical CenterComment on above:Performed By: #### CBCRachana, CMP #### [facility] ([id number]) [address] [place] [address], [place] [address]Fjkfvgdno [Mass/Vol]0.9 mg/dLNormal0.3-1.2PSt. Mary's Medical Center, Iront[facility] CampusComment on above:Performed By: #### ARELY, CMP #### [facility] ([id number]) [address] [place] [address], [place] [address]Lwsmkzo [Mass/Vol]8.3 mg/dLLow8.5-10.5PSt. Mary's Medical Center, Iront[facility] CampusComment on above:Performed By: #### ARELY, CMP #### [facility] ([id number]) [address] [place] [address], [place] [address]Csbpslts [Moles/Vol]102 mmol/YBebtln11-494ZgwZasmsgHca Houston Healthcare NorthwestComment on above:Performed By: #### ARELY, CMP #### [facility] ([id number]) [address] [place] [address], [place] [address]XS8 [Moles/Vol]23 mmol/WJyuupz61-54PixQpcltoSt. Mary's Medical Center[facility] Campus Comment on above:Performed By: #### CBCRachana, CMP #### [facility] ([id number]) [address] [place] [address], [place] [address]Mkmtlwuzqk [Mass/Vol]1.20 mg/dLNormal0.70-1.20ProHca Houston Healthcare NorthwestComment on above:Result Comment: METHOD TRACEABLE TO IDMS STANDARD Performed By: #### CBCRachana, CMP #### [facility] ([id number]) [address] [place] [address], [place] [address]AML/1.73 sq M.predicted among non-blacks MDRD (S/P/Bld) [Vol rate/Area]70 mL/min/{1.73_m2}Normal>59ProHca Houston Healthcare NorthwestComment on above:Result Comment: Reported eGFR is based on the CKD-EPI 1 equation that does not use a race coefficient.Performed By: #### ARELY, CMP #### [facility] ([id number]) [address] [place] [address] 440[address]Sojfrtp [Mass/Vol]213 mg/qZRdax52-86YsaGeanuzFairfield Medical Center Comment on above:Performed By: #### ARELY, CMP #### [facility] ([id number]) [address] [place] [address] 08[address]Styqmymbd [Moles/Vol]3.6 mmol/LNormal3.5-5.0ProHca Houston Healthcare NorthwestComment on above:Performed By: #### ARELY, CMP #### [facility] ([id number]) [address] [place] [address] 849[address]Fkfasci [Mass/Vol]8.3 g/dLHigh6.0-8.0[facility] Comment on above:Performed By: #### ARELY, CMP #### [facility] ([id number]) [address] [place] [address] 25968Ulydzo [Moles/Vol]132 mmol/WOfc467-066ZqiCilfooHca Houston Healthcare NorthwestComment on above:Performed By: #### AERLY, CMP #### [facility] ([id number]) [address] [place] [address] 884[address]Tyei nitrogen [Mass/Vol]18 mg/dLNormal5-23ProHca Houston Healthcare NorthwestComment on above:Performed By: #### CBCA, CMP #### [facility] ([id number]) [address] [place] [address] 633[address]Cqepkth (P damon) [Moles/Vol]on 90-99-6167GUZTBMD W/REFLEX1.3 mmol/LNormal0.4-2.0ProHca [facility] Healthcare NorthwestComment on above:Result Comment: Result did not trigger repeat Lactate, re-order if needed.Performed By: #### 25659-7 #### [facility] ([id number]) [address] [place] [address], FIRST F[place]OR [place], [place] [address]UASFRNPDIZD WOUND CULTUREon 55-38-9594Nnqppgwy identified Aer cx Nom (Wound)GRAM STAIN 0 [...] DAPTOMYCIN S 0.25 F DOXYCYCLINE S <=0.5 FSusceptibleProHca Houston Healthcare NorthwestComment on above: Performed By: #### 632-0 #### [facility] ([id number]) [address] [facility], [address] [place], [place] [address]HW FOOT RT MIN 3 VWSon 77-39-8126VZ FOOT RT MIN 3 VWSXR FOOT RT [...] Du Hawthorne MD on 03/04/2025 10:59 AMNormalProMedica Mountain View CampusCNPNon 09-00-1715ZXFFKlgvxzdzn (GASTMN) MORE KINGSLEY JR. 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 ([id number]) 1965 M Date Time Provider Department 06/22/24 [...] 07/05/2024 8:20 AM Signed Received fax from [facility] asking if he has been scheduled. [...] 10:57 AM Signed Dexcom or empties trial. [facility] and behavioral medicine. EGG is in. Art Figueredo DO 07/12/2024 10:57 AM Signed Addended by: ART FIGUEREDO on: 07/12/2024 10:57 AM Modules accepted: Layla Silva RN 07/12/2024 12:16 PM Signed Screens positive for EMPTIES medically however, unsure if will be complaint with follow ups evaluate at [facility] ISAIAS Aparicio Rose M 07/13/2024 11:43 AM Signed Patient is scheduled at [facility] [place] with GP Team Allergies As of Date: 06/22/2024 (Not on File) Date Reviewed: Never Reviewed Reason for Visit: Appointment [186] Primary Visit Diagnosis:Gastroparesis [K31.84] Order(s):EGG (ELECTROGASTROGRAPHY) [[id number]] Order #: [id number] Problem List As Of Date: 06/22/2024 (None) Encounter Status:Closed by DEONNA PATEL on 06/22/24NoDetwiler Memorial HospitalGlucose Glucometer (dC) [Mass/Vol]Ordered By: Tracy Yoon on 35-09-6253Aqgsbll [Mass/Vol]234 mg/dLMetrohealth Parma Medical CenterComment on above:Random Glucose Reference Range is dependent on time and content of last meal. Glucose of more than 200 mg/dL in a nonstressed, ambulatory subject supports the diagnosis of Diabetes Mellitus.No Panel InformationOrdered By: Tracy Yoon on 39-46-0009Cstaphf Glucose CommentGlu2: cleaned [facility] HospitalA1C HEMOGLOBINon 88-53-3948KaJ2u (Bld) [Mass fraction]10.4 %Information Assurance Other Glucose - FINGER STICKon 01-76-0830Zzhxgqx [Mass/Vol] 319 mg/dLNort PingStamp Other HbA1c (Bld) [Mass fraction]on 47-80-6524B4B HEMOGLOBIN Information Assurance Other XR CHEST 1 Von 46-05-6514TD CHEST 1 VONE-VIEW CHEST RADIOGRAPH, 03/18/2023 8:32 PM EDT COMPARISON: Chest, 01/20/2021. CLINICAL HISTORY: Dizziness near syncope. Findings and impression: 1. Minimal linear atelectasis or scarring in the lingula. Lungs otherwise clear. 2. Borderline heart size. 3. No acute osseous abnormality. Electronically authenticated by: Mahad DIXON Date: 2023-03-18 22:26NoMorrow County HospitalBNPon 56-75-8711Vwdxltarpfu peptide B (Bld) [Mass/Vol]174.0 pg/mLNormal<=900.0The [facility] Warren HospitalComment on above:Performed By: #### HSTROPN, CMP, BNP #### [facility] [address] [place] [address] Dr. Michael Allen AUTO DIFFon 76-96-9852MNPQ #0.1 103/ulNormal0.0-0.1The [facility] Warren HospitalComment on above:Performed By: #### CBC #### [facility] [address] [address] [address] Michael GonzalesBasophils/100 WBC (Bld)1.4 %Normal0.2-2.0The [facility] Comment on above:Performed By: #### CBC #### [facility] [address] [place] [address] Dr. Michael Upton #0.2 103/ulNormal0.0-0.7The [facility] Warren HospitalComment on above: Performed By: #### CBC #### [facility] [address] [address] [address] Michael Adamsosinophils/100 WBC (Bld)2.3 %Normal0.9-7.0The [facility] Comment on above:Performed By: #### CBC #### [facility] [address] [address] [address] Michael Adamsrythrocyte distribution width (RBC) [Ratio]13.9 %Xkeqva53.0-15.[address] [facility] Warren HospitalComment on above:Performed By: #### CBC #### [facility] [address] [place] [address] Dr. Michael GonzalesHematocrit (Bld) [Volume fraction]43.6 %Ukbaqv25.0-54.0The [facility] Warren HospitalComment on above:Performed By: #### CBC #### [facility] [address] [place] [address] Dr. Michael GonzalesHemoglobin (Bld) [Mass/Vol]14.6 g/yOLghfgh78.0-18.0The [facility] HospitalComment on above:Performed By: #### CBC #### [facility] [address] [place] [address] Dr. Michael Olson #0.05 10e3/ulCritically high0.00-0.03The [facility] Comment on above:Performed By: #### CBC #### [facility] [address] [place] [address] Dr. Michael Olson %0.5 %Normal0.0-0.5The [facility] HospitalComment on above: Performed By: #### CBC #### [facility] [address] [place] [address] Dr. Michael GuzmánH #2.4 103/ulNormal1.2-3.8The [facility] HospitalComment on above:Performed By: #### CBC #### [facility] [address] [place] [address] Dr. Michael Bergeronmphocytes/100 WBC (Bld)26.3 %Mikmep17.5-60.0The [facility] Warren HospitalComment on above:Performed By: #### CBC #### [facility] [address] [address] [address] Michael Linares DIFF REQNONormalThe [facility] St. [facility] Warren HospitalComment on above: Performed By: #### CBC #### [facility] [address] [address] [address] Michael Frank (RBC) [Entitic mass]28.7 giYeabib50.9-34.0The [facility]akaket HospitalComment on above:Performed By: #### CBC #### [facility] [address] [address] [address] Michael Frank (RBC) [Mass/Vol]33.5 g/fJQwjqkg59.9-35.2The [facility] HospitalComment on above:Performed By: #### CBC #### [facility] [address] [address] [address] Michael Frank (RBC) [Entitic vol]85.7 rEAbvies41.0-94.0The [facility] HospitalComment on above:Performed By: #### CBC #### [facility] [address] [address] [address] Michael Masters #1.3 103/ulCritically high0.3-0.8The [facility] Comment on above:Performed By: #### CBC #### [facility] [address] [address] [address] Michael Princeocytes/100 WBC (Bld)13.6 %Critically high1.7-12.0The [facility] HospitalComment on above:Performed By: #### CBC #### [facility] [address] [address] [address] Michael Edmond #5.2 103/ulNormal1.4-6.5The [facility] HospitalComment on above:Performed By: #### CBC #### [facility] [address] [address] [address] Michael Hermosilloutrophils/100 WBC (Bld)55.9 %Hbejgm73.0-75.0The [facility] HospitalComment on above:Performed By: #### CBC #### [facility] [address] [place] [address] Dr. Michael GonzalesPlatelet mean volume (Bld) [Entitic vol]10.9 fLNormal9.5-13.5The [facility] HospitalComment on above:Performed By: #### CBC #### [facility] [address] [place] [address] Dr. Michael GonzalesPLT219 103/dmOesjcg297-867Mnd [facility] HospitalComment on above: Performed By: #### CBC #### [facility] [address] [place] [address] Dr. Michael GonzalesRBC5.09 106/ulNormal4.70-6.10The [facility] HospitalComment on above:Performed By: #### CBC #### [facility] [address] [place] [address] Dr. Michael GonzalesWBC9.2 103/ulNormal4.0-11.0The [facility] HospitalComment on above: Performed By: #### CBC #### [facility] [address] [place] [address] Dr. Michael GonzalesMAGNESIUMon 41-60-5228Maglzuzqe [Mass/Vol]2.0 mg/dLNormal1.8-2.[address] [facility] HospitalCommunson healthcare [facility] on above:Performed By: #### MG #### [facility] [address] [place] [address] Dr. Michael GonzalesPROF 14(COMP METB)on 59-01-7824Jyhoczl [Mass/Vol]3.3 g/dL Critically low3.4-5.0The [facility] HospitalComment on above:Performed By: #### HSTROPN, CMP, BNP #### [facility] [address] [place] [address] Dr. Michael GonzalesAlbumin/Globulin [Mass ratio]0.7 {ratio}NormalThe [facility] HospitalComment on above:Performed By: #### HSTROPN, CMP, BNP #### [facility] [address] [address] [address] Michael Ibanez [Catalytic activity/Vol]118 U/LCritically yfxo63-455Zts [facility] HospitalComment on above:Performed By: #### HSTROPN, CMP, BNP #### [facility] [address] [address] [address] Michael Rhoades [Catalytic activity/Vol]19 U/CVqbxhy23-63Gve [facility] HospitalComment on above:Performed By: #### HSTROPN, CMP, BNP #### [facility] [address] [address] [address] Michael Carbajal gap [Moles/Vol]13.3 mmol/LNormalThe [facility] Comment on above:Performed By: #### HSTROPN, CMP, BNP #### [facility] [address] [place] [address] Dr. Michael Colon [Catalytic activity/Vol]24 U/ZUvsyam30-59Pyv [facility] HospitalComment on above:Performed By: #### HSTROPN, CMP, BNP #### [facility] [address] [address] [address] Michael GonzalesBilirubin [Mass/Vol]1.0 mg/dLNormal0.2-1.0The [facility] Comment on above:Performed By: #### HSTROPN, CMP, BNP #### [facility] [address] [address] [address] Michael GonzalesCalcium [Mass/Vol]8.7 mg/dLNormal8.5-10.1The [facility] Comment on above:Performed By: #### HSTROPN, CMP, BNP #### [facility] [address] [address] [address] Michael GonzalesChloride [Moles/Vol]101 mmol/IBweels00-900Mjd [facility] Comment on above:Performed By: #### HSTROPN, CMP, BNP #### [facility] [address] [address] [address] Michael GonzalesCO2 [Moles/Vol]22.0 mmol/IFlksqy07.0-32.0The [facility] Comment on above:Performed By: #### HSTROPN, CMP, BNP #### [facility] [address] [place] [address] Dr. Michael GonzalesCreatinine [Mass/Vol]2.08 mg/dLCritically high0.70-1.30The [facility] HospitalComment on above:Performed By: #### HSTROPN, CMP, BNP #### [facility] [address] [place] [address] Dr. Rodriguez ChangEGFR-AF GZQABASC62 mL/min/1.94c5Jrtooiteob low>=60The [facility] HospitalComment on above:Performed By: #### HSTROPN, CMP, BNP #### [facility] [address] [place] [address] Dr. Rodriguez ChangEGFR-NON AF FYFLNYBO80 mL/min/1.54q0Zkgpekfzzg low>=60The [facility] HospitalComment on above:Performed By: #### HSTROPN, CMP, BNP #### [facility] [address] [place] [address] Dr. Michael GonzalesGlobulin (S) [Mass/Vol]4.6 g/dLNormalThe [facility] HospitalComment on above:Performed By: #### HSTROPN, CMP, BNP #### [facility] [address] [place] [address] Dr. Michael GonzalesGlucose [Mass/Vol]319 mg/dLCritically ruso55-641Fhi [facility] Hospitalment on above:Performed By: #### HSTROPN, CMP, BNP #### [facility] [address] [place] [address] Dr. Michael GonzalesPotassium [Moles/Vol]4.3 mmol/LNormal3.5-5.1The [facility] Comment on above:Performed By: #### HSTROPN, CMP, BNP #### [facility] [address] [place] [address] Dr. Michael GonzalesProtein [Mass/Vol]7.9 g/dLNormal6.4-8.2The [facility] Comment on above:Performed By: #### HSTROPN, CMP, BNP #### [facility] [address] [place] [address] Dr. Michael GonzalesSodium [Moles/Vol]132 mmol/LCritically aby302-219Lka [facility] HospitalComment on above:Performed By: #### HSTROPN, CMP, BNP #### [facility] [address] [place] [address] Dr. Michael Hernandez nitrogen [Mass/Vol]33.0 mg/dLCritically high7.0-18.0The [facility] HospitalComment on above:Performed By: #### HSTROPN, CMP, BNP #### [facility] [address] [place] [address] Dr. Michael Hernandez nitrogen/Creatinine [Mass ratio]15.9 mg/mgNoMorrow County HospitalComment on above:Performed By: #### HSTROPN, CMP, BNP #### [facility] [address] [place] [address] Dr. Michael Galicia 19-30-5648VVK Coag (PPP) [Relative time]0.93 {INR} NormalMercy Health St. Elizabeth [facility] HospitalComment on above:Performed By: #### PTT, PT #### [facility] [address] [place] [address] Dr. Michael Robb GUIDELINESSEE BELOWKnox Community HospitalComment on above:Result Comment: DESIRED INR: 2.0 - 3.0 CONDITIONS NOT LISTED BELOW 2.5 - 3.5 FOR PROSTHETIC HEART VALVE REPLACEMENT 2.5 - 3.5 RECURRENT THROMBOSIS Performed By: #### PTT, PT #### [facility] [address] [place] [address] Dr. Michael GonzalesPT Coag (PPP) [Time]9.9 sNormal9.0-11.6The [facility] Comment on above:Performed By: #### PTT, PT #### [facility] [address] [place] [address] Dr. Michael Baca 39-26-7158wFTD Coag (Bld) [Time]26.5 mKxcgzn86.3-36.2The [facility] HospitalComment on above:Performed By: #### PTT, PT #### [facility] [address], [place] [address] Dr. Michael Florez, HIGH SENSITIVITYon 93-70-3364KOAGPW5.3 pg/mLNormal 4.0-76.1The [facility] HospitalComment on above:Result Comment: CUT-OFF POINTS HAVE BEEN ESTABLISHED BASED ON THE FOURTH UNIVERSAL DEFINITIONS OF MYOCARDIAL INFARCTION. THE UPPER REFERENCE LIMIT (URL) OF TROPONIN, DEFINED THE 99TH PERCENTILE OF cTnI DISTRIBUTION IN A REFERENCE POPULATION, HAS BEEN CONFIRMED THE DECISION THRESHOLD FOR [place] DIAGNOSIS.Performed By: #### HSTROPN, CMP, BNP #### [facility] [address], [place] [address] Dr. Michael GonzalesXR FOOT LEFT 3+ VIEWS (STANDARD)on 30-73-4974ZQNTPFAD/ Severe destructive changes at the midfoot and [...] ID: [id number] FOOT LEFT 3+ VIEWS (STANDARD)on [id number] FOOT LEFT 3+ VIEWS (STANDARD)EXAMINATION: XR FOOT [...] [facility] Jan 25, 2021 1:58:20 PM [facility] on above:Order Comment: Injury/Trauma or Illness?:Illness/Other How long have you had these symptoms (acute/chronic)?:Acute Reason for exam?:non healing wound on top of foot History of cancer?: Surgeries, chemotherapy, or radiation?: Type of Exam?:Initial Additional signs and symptoms?:painOtheron 11-05-0656Yi acute osseous abnormality. Workstation ID: [id number]: XR [...] Soft tissues are diffusely edematous with skin thickening.[facility] - 01/09/2021 4:13 PM [...] ID: [id number] ANKLE LEFT 3+ VIEWS (STANDARD)on [id number] ANKLE LEFT 3+ VIEWS (STANDARD)EXAMINATION: XR ANKLE [...] LEGGETT on WedJan 09, 2021 4:10:37 PM ESTPremier Health Upper Valley Medical CenterComment on above:Order Comment: Injury/Trauma or Illness?:Illness/Other How long have you had these symptoms (acute/chronic)?:Acute Reason for exam?:charcot joint of ankle History of cancer?: Surgeries, chemotherapy, or radiation?: Type of Exam?:Initial Additional signs and symptoms?:XR FOOT LEFT 3+ VIEWS (STANDARD)on 86-51-6989LS FOOT LEFT 3+ VIEWS (STANDARD)EXAMINATION: XR ANKLE [...] on Barbara Jan 09, 2021 4:10:37 PM [facility]Comment [facility]:Order Comment: Injury/Trauma or Illness?:Illness/Other How long have you had these symptoms (acute/chronic)?:Acute Reason for exam?:open wound History of cancer?: Surgeries, chemotherapy, or radiation?: Type of Exam?:Initial Additional signs and symptoms?:Biopsyon 37-72-3743Ofadnadia Cherry DPM 12/27/2020 11:33 PM Biopsy Timeout: Verbal Consent obtained?: Yes Consent given by:: Patient Procedure: Procedure Performed for: Bone Biopsy - Left foot Performed by: Physician Additional Procedure details:: A bone biopsy of the midfoot was obtained using a rongeur and sent to microbiology for culture and sensitivity Response to Treatment:: Procedure was tolerated wellOhioHealthBasic Metabolic Panelon 52-47-3755Kppmh gap [Moles/Vol]9 mmol/LLow10 - 20 mmol/L OhioHealthCalcium [Mass/Vol]8.9 mg/dL8.4 - 10.2 mg/dLOhioHealthChloride [Moles/Vol]104 mmol/L98 - 108 mmol/LOhioHealthCreatinine [Mass/Vol]1.01 mg/dL 0.50 - 1.30OhioHealthGFR/1.73 sq M predicted among non-blacks MDRD (S/P/Bld) [Vol rate/Area]The eGFR should be used for monitoring renal function only and not for medication dosing.OhioHealthGFR/1.73 sq M.predicted CKD-EPI (S/P/Bld) [Vol rate/Area]84>=60 mL/min/1.73 h6ZzmkJghxncAdstjky [Mass/Vol]156 mg/kUBjdi52 - 99 mg/dLOhioHealthHCO3 [Moles/Vol]27 mmol/L21 - 32 mmol/LOhioHealth Interpretation and review of laboratory resultsAbnormalOhioHealthPotassium [Moles/Vol]3.8 mmol/L3.5 - 5.1 mmol/LOhioHealthSodium [Moles/Vol]136 mmol/L135 - 145 mmol/LOhioHealthUrea nitrogen [Mass/Vol]15 mg/dL8 - 25 mg/dLOhioHealthUrea nitrogen/Creatinine [Mass ratio]14.9 mg/mgOhioHealthCBCon 45-04-9737Erxcsoyowkn distribution width (RBC) [Entitic vol]15.4 %High11.6 - 14.8 %[facility] Hematocrit (Bld) [Volume fraction]34.1 %Low41 - 53 %[facility]Reg[facility] Hospital CompanyHemoglobin (Bld) [Mass/Vol]10.3 g/dLLow13.5 - 17.5 g/dLOhioHealthInterpretation and review of laboratory resultsAbnormalOhioHealthMCH (RBC) [Entitic mass]25.5 pgLow26 - 34 pg [facility] CompanyMCHC (RBC) [Mass/Vol]30.2 g/dLLow31 - 37 g/dLOhioHealthMCV (RBC) [Entitic vol]84.4 fL80 - 100 fLOhioHealthNucleated RBC (Bld) [#/Vol]0.00 10*3/uL OhioHealthNucleated RBC/100 WBC (Bld) [Ratio]0.0 %[facility] CompanyPlatelet mean volume (Bld) [Entitic vol]10.0 fL9.4 - 12.4 fLOhioHealthPlatelets (Bld) [#/Vol]494 10*3/uLHighOhioHealthRBC (Bld) [#/Vol]4.04 10*6/uLLowOhioHealthWBC (Bld) [#/Vol] 6.26 10*3/uLOhioHealthMagnesium Levelon 23-78-6098Yeomkqbpmcppbx and review of laboratory resultsNormalOhioHealthMagnesium [Mass/Vol]1.8 mg/dL1.6 - 2.4 mg/dL [facility] CenterPOC Glucoseon 62-64-5280Geshrro [Mass/Vol]157 mg/vPBouy31 - 99 mg/dL OhioHealthInterpretation and review of laboratory resultsAbnormalOhioHealth Glucose [Mass/Vol]132 mg/aXRzug01 - 99 mg/dLOhioHealthInterpretation and review of laboratory resultsAbnormalOhioHealthGlucose [Mass/Vol]154 mg/qYBcar92 - 99 mg/dLOhioHealthInterpretation and review of laboratory resultsAbnormalOhioHealth Basic Metabolic Panelon 42-73-2036Eerse gap [Moles/Vol]8 mmol/LLow10 - 20 mmol/L OhioHealthCalcium [Mass/Vol]8.6 mg/dL8.4 - 10.2 mg/dLOhioHealthChloride [Moles/Vol]103 mmol/L98 - 108 mmol/LOhioHealthCreatinine [Mass/Vol]1.02 mg/dL 0.50 - 1.30OhioHealthGFR/1.73 sq M predicted among non-blacks MDRD (S/P/Bld) [Vol rate/Area]The eGFR should be used for monitoring renal function only and not for medication dosing.OhioHealthGFR/1.73 sq M.predicted CKD-EPI (S/P/Bld) [Vol rate/Area]83>=60 mL/min/1.73 f7FrzkDngtojWtbyarw [Mass/Vol]151 mg/sHVxcd65 - 99 mg/dLOhioHealthHCO3 [Moles/Vol]28 mmol/L21 - 32 mmol/LOhioHealthPotassium [Moles/Vol]3.7 mmol/L3.5 - 5.1 mmol/LOhioHealthSodium [Moles/Vol]135 mmol/L135 - 145 mmol/LOhioHealthUrea nitrogen [Mass/Vol]13 mg/dL8 - 25 mg/dLOhioHealthUrea nitrogen/Creatinine [Mass ratio]12.7 mg/mgOhioHealthCBCon 07-72-9228Bwklvfodfsn distribution width (RBC) [Entitic vol]15.7 %High11.6 - 14.8 %[facility] Hematocrit (Bld) [Volume fraction]32.9 %Low41 - 53 %[facility] CompanyHemoglobin (Bld) [Mass/Vol]9.9 g/dLLow13.5 - 17.5 g/dLOhioHealthInterpretation and review of laboratory resultsAbnormalOhioHealthMCH (RBC) [Entitic mass]25.6 pgLow26 - 34 pg OhioHealthMCHC (RBC) [Mass/Vol]30.1 g/dLLow31 - 37 g/dLOhioHealthMCV (RBC) [Entitic vol]85.0 fL80 - 100 fLOhioHealthNucleated RBC (Bld) [#/Vol]0.00 10*3/uL OhioHealthNucleated RBC/100 WBC (Bld) [Ratio]0.0 %OhioHealthPlatelet mean volume (Bld) [Entitic vol]10.2 fL9.4 - 12.4 fLOhioHealthPlatelets (Bld) [#/Vol]512 10*3/uLHighOhioHealthRBC (Bld) [#/Vol]3.87 10*6/uLLowOhioHealthWBC (Bld) [#/Vol] 7.74 10*3/uLOhioHealthCRP, Inflammationon 56-20-2901YOO [Mass/Vol]162.0 mg/LHigh <=10.0OhioHealthMagnesium Levelon 03-12-7307Zhxwjcodnzflgx and review of laboratory resultsNormalOhioHealthMagnesium [Mass/Vol]1.7 mg/dL1.6 - 2.4 mg/dL [facility]HealthOtheron 22-86-0000Vawxgoyyuznuwz and review of laboratory results AbnormalOhioHealthPOC Glucoseon 91-01-8099Dgrzukt [Mass/Vol]121 mg/oSAikf55 - 99 mg/dLOhioHealthInterpretation and review of laboratory resultsAbnormal OhioHealthGlucose [Mass/Vol]117 mg/wPZyer46 - 99 mg/dLOhioHealthInterpretation and review of laboratory resultsAbnormalOhioHealthGlucose [Mass/Vol]147 mg/dL High65 - 99 mg/dLOhioHealthInterpretation and review of laboratory results AbnormalOhioHealthGlucose [Mass/Vol]177 mg/zFSdir27 - 99 mg/dLOhioHealth Interpretation and review of laboratory resultsAbnormalOhioHealthSedimentation Rateon 72-56-1915UYN (Bld) [Velocity]116 mm/hHighOhioHealthInterpretation and review of laboratory resultsAbnormalOhioHealthTISSUE EXAMon 66-38-4658Mcxz ReportSurgical Pathology Report Case: [id number] Authorizing Provider: Leanne Cherry DPM Collected: 11/18/2020 12:59 PM Ordering Location: [facility] Received: 11/18/2020 01:28 PM Pathologist: Boy Cortez MD Specimen: Foot, Left, Left Foot Bone [facility] CompanyPathology report final diagnosis Narrative o8rehUSkRXZxuCV8SrDpVERws3tie8JxdKJkwKSiTYlziAWvifXmkr51cHC6rE00CX1bVUGxZxJ3RNJb svT2Qmi8PHDbWSRsqBKe O368r8uyk4lkcmNpaQJ0fLzcXQQzLWTzEKqfBNPdDfZjLSSLPuPiEBXcj5KrE3L6RKYdUIbup0lqCPNx ONzbi6QeERmEWLTVSR5M JS3ihUL3QJjCHKWSO3bUoXL8ErA8tHF1BK24IWLcPRAjjVOrUNmjB704Ox1pPCHaqvKdyXTojBNvWLlc ae03MXY3CXusHcncvJR2 PSxpMeakwZ7nyYQOGZHXRdjWXhetdxPxME3OZIiHPeNZOF00Gg21SFDhJGWllCGoZSyhR883OPIohBFJ s601y6vvgVNmYSwjYgkx qTLgdqX6FZiATTYYGJbEKcMmDX7kEHmSGRVZHuD9Pl35JWJzWKZwdBCiPNtxA567SCAfZXhiEIJud2Bo P6TcCkxziaLlCJljZTie pYJss049k0eqoLPnJFgvBulshTEaieB3LXkSUESEKMnCBmUfTO6gVLuNZ1BEOuA1CxPjFAF7SNwckLjw FkmsifFpqVYwGiCfaX1d tGegkO8dRbfvqlVoQLOwdhlvoLyuGNdhuV77VyNuNhYxXNF6kULgh1U6BQ1twIJegSRnks5zcBPcDMDe qaIqhGQfURJxG98MVyZM HFMDV74LLHHDROKAZ5GGX6pLZFX1AvK0kHP8XrX2IohxJOYYZNUTDDiNBD2LTXFKYZDKKB4CJbPxL1vI RENBUkRfTUVUQURBVEFf KaYZCU3xLar5EPAhzRSKt947U8cYWECIOoWgPGYPUCKEGDXaYV0BENOPGGUTKK1DYCDJO09ZTGVGAQGG M1XPE5gPIFMzh7MMgWZt eXP9FwCiISN4VkrrSS3wXBzMT0IFZ3bUUBDvMCVKEHISTSHsLZ2VTDxOEP3EHFJvZMMWSOCOEYHpJnZF DV8mICsONT4YZDUfLNOM QXJKXJHsVD8IFNQKMC6ESPQZAISAL94QNCLJQMAFB8EGS9aONHWLVQOBTjZLPxFGBO3RSKXLKBPIUZ8D EkA5HqxfKvoidkMxyccghig report gross observation Narrative z3cexQMtEYOanDG1GzSdWHTer0vcy4OayJXsiNErSXuqeEReggVdyz30uGB4eC65ZQ9dJSHdSmT9QSSg plR6Yfv0VZViXEAhrZNn Q131a8cxz2nbloVdcVU8hNpoXHUySPVeLWonSEPxDsVjJgNwKBt5HOGqoA3gBm1vrYTovW3xWELck6cd trF7FRMzLlXuMg9gcQwa NEYprGEHw85aCbcvVZRzd4ZzS4P9EWXxORpzx7mfKLOeLYbps4OgIDgLTHYIKD4FTA1cvNI8EZlCSILM U7pTtVI9EFOwhHX2KE16 RKXeCRNirXAgJNdaY761uFLaPWrsGugdpKP6BOngDsigbS2rsOAJXOPBGlwMBusldlYfLC8IFQAREZ9Q oST7NEGduYM4IG81GOXr SZDkwHDuYDpsC493PYEoCLnoGCSuDyZkBKYbUZhbXV40UNLfSJ9cUPNbexUofKQrg0VlmM0kJSVcXXQ6 HBAwSxC8ITUxWaGgdJmp jp23HGY3j3teeMIqEIirIfbyeEKcghQ2LFrIMETMRSdEHwPnUA8sPAzJA1SCLAdLZtydTLK7K2xrmNO9 t5wqtDQrb0t4LWlwXPE1 xW48IQDiXHwpk5hgVMBpLClls5MgACmPIHDXLD0NXL8wnMI3FAnRJHVSLRbdZQZ8S9qvbOM8v5vhsGKc e3s0TXuxSPS8oWfinUAp rxfeykLqPVNkC0KasMa8kANdPYZnrzXbJVCbtJWoPfrxGRUvt97sYMCMr8CqiOn1KYZ5As9qtGHiIHHg nlUjHCExq6CxsSPpIWWj UaqjRXKttHMaVSjwIZVjWU5cnIZdYWsbh4XwJVP0TD6kptM3vA8eZBCdqcGgtg9tJEVcpXdrWNGkm0Dj LTiyTBntz2AzwOSwGA7p IwJ7LWvzKNKbpnJpPZK9DU12PAXLIP8zCkezgWHdWX1IXNG0DMKkSCIphfbqCAKeHOZwQvnfJRZfxjJX PYJUSXeWY9NbJTDVHVAC JYPiAgQHPI8uUlOcNZS1RN1tNrW0SITmoWM0IJBHBEUXORmLM5IwXPONNAOBPJOzDF1KUGdYEBFAUBVR W02WLRYFXJKIX0ZPD1cG IRaLEVBMOWKWJ79TFCMDCOEGC4BMRAQAMYXZHTgWUTIXLa7GIISNGIMZHI3IYDmYBuRbTKqLQL76yAVk vhOlMEckGHQ6VVh9ZvZa jKUef0ELHGduZMTgY9GhK2I6LDlpRRJ6Hrj9TwJvwBMEXDZHBYeTQPPOJq9HGPPHTJKSMN2KFtTxA3BT NP2SKh5XSPQNJBOXTC7Z RNkWTeFyG3CSBA5OIq8ZGTKKHSUSZL5PWbCwLYTCZ4DKHdLAO4keHILKXWLOYKZgOtVLQQ2kGQFRHG9Q DWTSNVLKW98MVVFQSFVTQ6YVCR4=XpqoDinqbrAhjozdgej report microscopic observation Narrative Other stain v6rsuAUpKTFepZCsEnKwGVQiJHTae9rlBWVhgNEcXeRwCxMhXiRvZkkliPMxKYVsNqGks9ceu221xMUh v0ucQQUzVuK8wNYaLFIf iGPvN068EFKvGAzze9ejt1VpHTRxlVIct7E6WQKIohcyvXc0hHfqT27mn2X2KzhoQ3vjYGHuLZGyG9Qf TK4kINJaEez7SSM5MWL4 LNYeWJVsF1IjJC1eEQXfuMTbTOz2o8obsLzmZUOpUOH6o4bhQZigwqNeOZ6iof2wsPh7l6hmxhCwFTSp EHGexJWIBJJyK9KsbApd Og8zoMl7qXqbTkspIIH9Tap8RJ9lue65yut0aXwyZRUnupvpSaI8YHmzYRUdxklyHRh3ELiqFVFocDV6 CKLijKZqI8QpXQFlFY3n sxm5QFH7YFhsYXLvEkH8IGFkgNBeFTYriJoeHLmcb352BZW3FfIhGT8qT9Kwp0B4dV3ieMVyBXWguFKc IcPxSAJkia1blTOjYPnz u7SuKFW2hfI3nIRvhGRpPDMlUB30Mgcfl8BuLdrdVCZ8TEXasoHda4Rdy0mpExQuglBqE7zrY9FhQTPt UNTfVQZhPpCldpTcw0Vn t1YisMQsrZh0u7vbFFIiAJAkkBett0zaEBW4HPYnY8Y6zIGiu9ufVSppOAWqxCH1jdU9BTJhtUEsE5Qc dU3kZSAlBK2qoai0s8ky WGW1OInfYFKnEfQ0sxR8PERtbHWuJNOtbQftBWewl232NXN6NdYrYAOlf9VdY8MuyIejW34aqHbnQ86q MSTreWbmmD4xoYenyY6k YiGdArXmDPbruUjhsSIwaxsaYGrojsIpHWyhpemaBUZbEJuoY7seGuCrPTPuuIlxHYnkl9MyXVJgKPXr RjRsSJwght3lL94siCHzKVjezHirZVTyq87bkLUipXZkWv6maQQkDoltQXZ9HlyaGykhvsUIAFV AEROBIC CULTUREon 16-51-7399Uozngrms identified Aer cx Nom (Wound)Rare growth Staphylococcus aureusAbnormalOhioHealthComment on above:This Staphylococcus aureus is Methicillin SUSCEPTIBLE by PBP2a testing. Beta-lactams like Cefazolin and Nafcillin are superior to Vancomycin for treating mSsa.Interpretation and review of laboratory resultsAbnormalOhioHealthMicroscopic observation Gram stain Nom (Wound)No Organisms SeenOhioHealthMicroscopic observation Gram stain Nom (Wound)Many WBCOhioHealthMicroscopic observation Gram stain Nom (Wound)No Epithelial Cells SeenOhioHealthBasic Metabolic Panelon 62-29-0011Qigwh gap [Moles/Vol]12 mmol/L10 - 20 mmol/LOhioHealthCalcium [Mass/Vol]8.8 mg/dL8.4 - 10.2 mg/dLOhioHealthChloride [Moles/Vol]103 mmol/L98 - 108 mmol/LOhioHealth Creatinine [Mass/Vol]0.92 mg/dL0.50 - 1.30OhioHealthGFR/1.73 sq M predicted among non-blacks MDRD (S/P/Bld) [Vol rate/Area]The eGFR should be used for monitoring renal function only and not for medication dosing.[facility] CenterGFR/1.73 sq M.predicted CKD-EPI (S/P/Bld) [Vol rate/Area]94>=60 mL/min/1.73 z6LgnxNykpxd Glucose [Mass/Vol]132 mg/tWVmje77 - 99 mg/dLOhioHealthHCO3 [Moles/Vol]25 mmol/L 21 - 32 mmol/LOhioHealthInterpretation and review of laboratory resultsAbnormal OhioHealthPotassium [Moles/Vol]3.8 mmol/L3.5 - 5.1 mmol/LOhioHealthSodium [Moles/Vol]136 mmol/L135 - 145 mmol/LOhioHealthUrea nitrogen [Mass/Vol]12 mg/dL8 - 25 mg/dLOhioHealthUrea nitrogen/Creatinine [Mass ratio]13.0 mg/mgOhioHealth CBCon 02-09-1428Ukqlrfbfhvk distribution width (RBC) [Entitic vol]15.7 %High11.6 - 14.8 %[facility] CompanyHematocrit (Bld) [Volume fraction]33.2 %Low41 - 53 %[facility] Hemoglobin (Bld) [Mass/Vol]10.2 g/dLLow13.5 - 17.5 g/dLOhioHealthInterpretation and review of laboratory resultsAbnormalOhioHealthMCH (RBC) [Entitic mass]25.5 pgLow26 - 34 pgOhioHealthMCHC (RBC) [Mass/Vol]30.7 g/dLLow31 - 37 g/dLOhioHealth MCV (RBC) [Entitic vol]83.0 fL80 - 100 fLOhioHealthNucleated RBC (Bld) [#/Vol] 0.00 10*3/uLOhioHealthNucleated RBC/100 WBC (Bld) [Ratio]0.0 %[facility] CompanyPlatelet mean volume (Bld) [Entitic vol]9.9 fL9.4 - 12.4 fLOhioHealthPlatelets (Bld) [#/Vol]596 10*3/uLHighOhioHealthRBC (Bld) [#/Vol]4.00 10*6/uLLowOhioHealthWBC (Bld) [#/Vol]10.04 10*3/uLOhioHealthMagnesium Levelon 57-92-3927Phuovwgwfvsnpp and review of laboratory resultsNormalOhioHealthMagnesium [Mass/Vol]1.7 mg/dL1.6 - 2.4 mg/dLOhioHealthPOC Glucoseon 83-47-7041Lnpzkjq [Mass/Vol]174 mg/fCQzqo69 - 99 mg/dLOhioHealthInterpretation and review of laboratory resultsAbnormal OhioHealthGlucose [Mass/Vol]180 mg/bAUsxz05 - 99 mg/dLOhioHealthInterpretation and review of laboratory resultsAbnormalOhioHealthGlucose [Mass/Vol]166 mg/dL High65 - 99 mg/dLOhioHealthInterpretation and review of laboratory results AbnormalOhioHealthGlucose [Mass/Vol]127 mg/bSSxbe58 - 99 mg/dLOhioHealth Interpretation and review of laboratory resultsAbnormalOhioHealthBasic Metabolic Panelon 74-66-8466Rgezc gap [Moles/Vol]10 mmol/L10 - 20 mmol/LOhioHealthCalcium [Mass/Vol]8.7 mg/dL8.4 - 10.2 mg/dLOhioHealthChloride [Moles/Vol]104 mmol/L98 - 108 mmol/LOhioHealthCreatinine [Mass/Vol]0.99 mg/dL0.50 - 1.30[facility] GFR/1.73 sq M predicted among non-blacks MDRD (S/P/Bld) [Vol rate/Area]The eGFR should be used for monitoring renal function only and not for medication dosing. TexasHealthGFR/1.73 sq M.predicted CKD-EPI (S/P/Bld) [Vol rate/Area]86>=60 mL/min/1.73 y7UhscZypudyXjybcao [Mass/Vol]136 mg/cEGama75 - 99 mg/dLOhioHealth HCO3 [Moles/Vol]27 mmol/L21 - 32 mmol/LOhioHealthInterpretation and review of laboratory resultsAbnormalOhioHealthPotassium [Moles/Vol]3.8 mmol/L3.5 - 5.1 mmol/LOhioHealthSodium [Moles/Vol]137 mmol/L135 - 145 mmol/LOhioHealthUrea nitrogen [Mass/Vol]12 mg/dL8 - 25 mg/dLOhioHealthUrea nitrogen/Creatinine [Mass ratio]12.1 mg/mgOhioHealthCBCon 64-06-7846Enxsvzogerx distribution width (RBC) [Entitic vol]15.9 %High11.6 - [...] [#/Vol] 4.25 10*6/uLLowOhioHealthWBC (Bld) [#/Vol]8.56 10*3/uLOhioHealthCRP, Inflammationon 13-53-8610VYX [Mass/Vol]132.0 mg/LHigh<=10.0[facility] Interpretation and review of laboratory resultsAbnormalOhioHealthMagnesium Level on 51-15-0630Ndqfepkmmtkaak and review of laboratory resultsNormalOhioHealth Magnesium [Mass/Vol]1.8 mg/dL1.6 - 2.4 mg/dLOhioHealthPOC Glucoseon 11-18-2020 Glucose [Mass/Vol]175 mg/aCMnnn39 - 99 mg/dLOhioHealthInterpretation and review of laboratory resultsAbnormalOhioHealthGlucose [Mass/Vol]111 mg/kIAsxp87 - 99 mg/dLOhioHealthInterpretation and review of laboratory resultsAbnormalOhioHealth Glucose [Mass/Vol]133 mg/xDIbet61 - 99 mg/dLOhioHealthInterpretation and review of laboratory resultsAbnormalOhioHealthGlucose [Mass/Vol]154 mg/vHRxqh89 - 99 mg/dLOhioHealthInterpretation and review of laboratory resultsAbnormalOhioHealth Sedimentation Rateon 08-31-8607EXJ (Bld) [Velocity]110 mm/hHighOhioHealth Interpretation and review of laboratory resultsAbnormalOhioHealthAPTTon 63-73-8138bZZY Coag (Bld) [Time]Therapeutic range for APTT's is 68 - 104 seconds [facility]eraP[facility] Coag (Bld) [Time]32 sOhioHealthInterpretation and review of laboratory resultsNormalOhioHealthBasic Metabolic Panelon 51-99-4763Khgdg gap [Moles/Vol]9 mmol/LLow10 - 20 mmol/LOhioHealthCalcium [Mass/Vol]8.6 mg/dL8.4 - 10.2 mg/dLOhioHealthChloride [Moles/Vol]105 mmol/L98 - 108 mmol/LOhioHealth Creatinine [Mass/Vol]0.94 mg/dL0.50 - 1.30OhioHealthGFR/1.73 sq M predicted among non-blacks MDRD (S/P/Bld) [Vol rate/Area]The eGFR should be used for monitoring renal function only and not for medication dosing.OhioHealthGFR/1.73 sq M.predicted CKD-EPI (S/P/Bld) [Vol rate/Area]92>=60 mL/min/1.73 b6DopxBkmywk Glucose [Mass/Vol]86 mg/dL65 - 99 mg/dLOhioHealthHCO3 [Moles/Vol]26 mmol/L21 - 32 mmol/LOhioHealthInterpretation and review of laboratory resultsAbnormal OhioHealthPotassium [Moles/Vol]3.9 mmol/L3.5 - 5.1 mmol/LOhioHealthSodium [Moles/Vol]136 mmol/L135 - 145 mmol/LOhioHealthUrea nitrogen [Mass/Vol]11 mg/dL8 - 25 mg/dLOhioHealthUrea nitrogen/Creatinine [Mass ratio]11.7 mg/mgOhioHealth CBC WITH AUTO DIFFERENTIALon 35-93-8460Bzzrlpisn (Bld) [#/Vol]0.07 10*3/uL OhioHealthBasophils/100 WBC (Bld)0.7 %OhioHealthEosinophils (Bld) [#/Vol]0.21 10*3/uLOhioHealthEosinophils/100 WBC (Bld)2.2 %[facility] CenterErythrocyte distribution width (RBC) [Entitic vol]15.9 %High11.6 - 14.8 %[facility] Hematocrit (Bld) [Volume fraction]36.4 %Low41 - 53 %[facility] CompanyHemoglobin (Bld) [Mass/Vol]11.0 g/dLLow13.5 - 17.5 g/dLOhioHealthImmature granulocytes (Bld) [#/Vol]0.11 10*3/uLOhioHealthImmature granulocytes/100 WBC (Bld)1.20 %[facility] Comment on above:The IG parameter is the [...] %OhioHealthNeutrophils (Bld) [#/Vol]5.78 10*3/uL OhioHealthNeutrophils/100 WBC (Bld)61.5 %[facility] CompanyNucleated RBC (Bld) [#/Vol] 0.00 10*3/uLOhioHealthNucleated RBC/100 WBC (Bld) [Ratio]0.0 %OhioHealthPlatelet mean volume (Bld) [Entitic vol]10.2 fL9.4 - 12.4 fLOhioHealthPlatelets (Bld) [#/Vol]644 10*3/uLHighOhioHealthRBC (Bld) [#/Vol]4.26 10*6/uLLowOhioHealthWBC (Bld) [#/Vol]9.40 10*3/uLOhioHealthMagnesium Levelon 88-78-8713Mpqqrlvafcpkpd and review of laboratory resultsNormalOhioHealthMagnesium [Mass/Vol]1.8 mg/dL1.6 - 2.4 mg/dLOhioHealthPOC Glucoseon 14-23-6104Tyrxxzj [Mass/Vol]192 mg/nQShmn45 - 99 mg/dLOhioHealthInterpretation and review of laboratory resultsAbnormal OhioHealthGlucose [Mass/Vol]132 mg/nHUxod53 - 99 mg/dLOhioHealthInterpretation and review of laboratory resultsAbnormalOhioHealthGlucose [Mass/Vol]148 mg/dL High65 - 99 mg/dLOhioHealthInterpretation and review of laboratory results AbnormalOhioHealthGlucose [Mass/Vol]94 mg/dL65 - 99 mg/dLOhioHealth Interpretation and review of laboratory resultsNormalOhioHealthBasic Metabolic Panelon 96-34-5285Nvhho gap [Moles/Vol]8 mmol/LLow10 - 20 mmol/LOhioHealth Calcium [Mass/Vol]8.6 mg/dL8.4 - 10.2 mg/dLOhioHealthChloride [Moles/Vol]104 mmol/L98 - 108 mmol/LOhioHealthCreatinine [Mass/Vol]1.03 mg/dL0.50 - 1.30 OhioHealthGFR/1.73 sq M predicted among non-blacks MDRD (S/P/Bld) [Vol rate/Area]The eGFR should be used for monitoring renal function only and not for medication dosing.OhioHealthGFR/1.73 sq M.predicted CKD-EPI (S/P/Bld) [Vol rate/Area]82>=60 mL/min/1.73 s9YwjgMdfnbcOpjirlx [Mass/Vol]103 mg/rXVpvg77 - 99 mg/dLOhioHealthHCO3 [Moles/Vol]30 mmol/L21 - 32 mmol/LOhioHealthInterpretation and review of laboratory resultsAbnormalOhioHealthPotassium [Moles/Vol]3.7 mmol/L3.5 - 5.1 mmol/LOhioHealthSodium [Moles/Vol]138 mmol/L135 - 145 mmol/L OhioHealthUrea nitrogen [Mass/Vol]10 mg/dL8 - 25 mg/dLOhioHealthUrea nitrogen/Creatinine [Mass ratio]9.7 mg/mgLowOhioHealthBone Anaerobic Cultureon 70-77-0824Nxesqqrl identified Anaer cx Nom (Unsp spec)No Anaerobic Growth at 5 DaysOhioHealthCBCon 78-49-6439Tdqcvpjnqvz distribution width (RBC) [Entitic vol] 15.9 %High11.6 [...] resultsNormalOhioHealthMagnesium [Mass/Vol]1.8 mg/dL1.6 - 2.4 mg/dLOhioHealthPOC Glucoseon 47-66-1397Vvracmk [Mass/Vol]157 mg/pBFagh44 - 99 mg/dLOhioHealthInterpretation and review of laboratory resultsAbnormalOhioHealthGlucose [Mass/Vol]105 mg/vEBoha21 - 99 mg/dL OhioHealthInterpretation and review of laboratory resultsAbnormalOhioHealth Glucose [Mass/Vol]147 mg/qDAoio90 - 99 mg/dLOhioHealthInterpretation and review of laboratory resultsAbnormalOhioHealthGlucose [Mass/Vol]100 mg/oDOvtl53 - 99 mg/dLOhioHealthInterpretation and review of laboratory resultsAbnormalOhioHealth Sedimentation Rateon 03-89-0400RAH (Bld) [Velocity]113 mm/hHighOhioHealth Interpretation and review of laboratory resultsAbnormalOhioHealthBasic Metabolic Panelon 84-88-9093Bhzxb gap [Moles/Vol]9 mmol/LLow10 - 20 mmol/LOhioHealth Calcium [Mass/Vol]8.4 mg/dL8.4 - 10.2 mg/dLOhioHealthChloride [Moles/Vol]106 mmol/L98 - 108 mmol/LOhioHealthCreatinine [Mass/Vol]0.89 mg/dL0.50 - 1.30 OhioHealthGFR/1.73 sq M predicted among non-blacks MDRD (S/P/Bld) [Vol rate/Area]The eGFR should be used for monitoring renal function only and not for medication dosing.OhioHealthGFR/1.73 sq M.predicted CKD-EPI (S/P/Bld) [Vol rate/Area]97>=60 mL/min/1.73 o9PrzeBuaebhXuaktvd [Mass/Vol]139 mg/cKKogb30 - 99 mg/dLOhioHealthHCO3 [Moles/Vol]26 mmol/L21 - 32 mmol/LOhioHealthInterpretation and review of laboratory resultsAbnormalOhioHealthPotassium [Moles/Vol]3.7 mmol/L3.5 - 5.1 mmol/LOhioHealthSodium [Moles/Vol]137 mmol/L135 - 145 mmol/L OhioHealthUrea nitrogen [Mass/Vol]14 mg/dL8 - 25 mg/dLOhioHealthUrea nitrogen/Creatinine [Mass ratio]15.7 mg/mgOhioHealthBone Aerobic Cultureon 01-48-2764Bexiqdzb identified Aer cx Nom (Bone)Rare growth Staphylococcus aureus AbnormalOhioHealthComment on above:This Staphylococcus aureus is Methicillin SUSCEPTIBLE by PBP2a testing. Beta-lactams like Cefazolinand Nafcillin are superior to Vancomycin for treating mSsa.Interpretation and review of laboratory resultsAbnormalOhioHealthMicroscopic observation Gram stain Nom (Unsp spec)No Organisms SeenOhioHealthMicroscopic observation Gram stain Nom (Unsp spec)Rare WBCOhioHealthMicroscopic observation Gram stain Nom (Unsp spec)No Epithelial Cells SeenOhioHealthCBCon 76-20-4501Ymqotwkfpmd distribution width (RBC) [Entitic vol]15.9 %High11.6 - [...] (Bld) [#/Vol]8.97 10*3/uLOhioHealthCT ABDOMEN PELVIS WITHOUT CONTRASTon 93-86-1661OR ABDOMEN PELVIS WITHOUT CONTRAST EXAMINATION: CT ABDOMEN PELVIS WITHOUT CONTRAST - 11/15/2020 COMPARISON: CT angiogram chest from [facility] dated 11/05/2020. No prior CT imaging of [...] perinephric fluid collections or ascites. There is sgvvqilg-vh-ryicz amount of retained stool in the proximal colon and cfjxo-ah-pswxobag amount of retained stool in the distal [...] retained stool in the proximal colon and oinoq-kr-ovivvhrm amount of retained stool in the distal colon, which could be related to a mild colonic ileus. No evidence of a bowel obstruction. 3. Mild pelvic and inguinal lymphadenopathy that may be reactive. 4. Questionable sludge or gallstones in the gallbladder. No evidence of cholecystitis. 5. Trace pleural effusions and mild atelectasis in both lung bases. [employer] Workstation ID: [id number] Dictated by: AMNA PEÑA on WedNov 15, 2020 2:11:25 PM EST Transcribed by: LUTHER TREJO on WedNov 15, 2020 2:15:19 PM EST Finalized by: AMNA PEÑA on WedNov 15, 2020 2:30:12 PM ESTWyandot Memorial HospitalComment on above:Order Comment: Injury/Trauma or Illness?:Illness/Other How long have you had these symptoms (acute/chronic)?:Acute Reason for exam?:non healing wound on top of foot History of cancer?: Surgeries, chemotherapy, or radiation?: Type of Exam?:Initial Additional signs and symptoms?:painCT Abdomen Pelvis Without Contraston 57-03-6300Tafwcdukb, Rad In [employer] - 11/15/2020 2:32 PM EST EXAMINATION: CT ABDOMEN PELVIS WITHOUT CONTRAST - 11/15/2020 COMPARISON: CT angiogram chest from [facility] dated 11/05/2020. No prior CT imaging of [...] perinephric fluid collections or ascites. There is fdceglvp-no-flkbp amount of retained stool in the proximal colon and lwpkn-vh-aqbvvyfj amount of retained stool in the distal [...] retained stool in the proximal colon and bulqu-vj-xlembppg amount of retained stool in the distal colon, which could be related to a mild colonic ileus. No evidence of a bowel obstruction. 3. Mild pelvic and inguinal lymphadenopathy that may be reactive. 4. Questionable sludge or gallstones in the gallbladder. No evidence of cholecystitis. 5. Trace pleural effusions and mild atelectasis in both lung bases. [employer] Workstation ID: [id number]: CT ABDOMEN PELVIS WITHOUT CONTRAST - 11/15/2020 COMPARISON: CT angiogram chest from [facility] dated 11/05/2020. No prior CT imaging of [...] No perinephric fluidcollections or ascites. There is urcpfppe-cm-ybdjt amount of retained stool in the proximal colon and ufakw-pu-nonjwrmu amount of retained stool in the distal [...] retained stool in the proximal colon and eiced-fd-qesbrdpk amount of retained stool in the distal colon, which could be related to a mild colonic ileus. No evidence of a bowel obstruction. 3. Mild pelvic and inguinal lymphadenopathy that may be reactive. 4. Questionable sludge or gallstones in the gallbladder. No evidence of cholecystitis. 5. Trace pleural effusions andmild atelectasis in both lung bases. [facility] Workstation ID: [id number] Levelon 79-87-6851Oycyaslxzjmmmk and review of laboratory resultsNormalOhioHealthMagnesium [Mass/Vol]1.9 mg/dL1.6 - 2.4 mg/dL [facility] Glucoseon 57-43-5373Rzywuod [Mass/Vol]171 mg/vUEebu02 - 99 mg/dL OhioHealthInterpretation and review of laboratory resultsAbnormalOhioHealth Glucose [Mass/Vol]122 mg/rUWmtf55 - 99 mg/dLNcioHealthInterpretation and review of laboratory resultsAbnormalOhioHealthGlucose [Mass/Vol]129 mg/tRBofj73 - 99 mg/dLOhioHealthInterpretation and review of laboratory resultsAbnormalOhioHealth Glucose [Mass/Vol]142 mg/mODxgm75 - 99 mg/dLOhioHealthInterpretation and review of laboratory resultsAbnormalOhioHealthXR FOOT LEFT 3+ VIEWS (STANDARD)on 42-56-2300PF FOOT LEFT 3+ VIEWS (STANDARD)EXAMINATION: XR FOOT [...] REILLY on WedNov 15, 2020 7:35:52 PM [facility] HospitalComment on above:Order Comment: Injury/Trauma or Illness?:Illness/Other [...] or fracture. There is a plantar calcaneal spur.[facility] - 11/15/2020 7:38 PM EST EXAMINATION: [...] or fracture. Workstation ID: [id number] Metabolic Panelon 61-75-7114Kuerc gap [Moles/Vol]8 mmol/LLow10 - 20 mmol/LOhioHealthCalcium [Mass/Vol]7.9 mg/dLLow8.4 - 10.2 mg/dLOhioHealthChloride [Moles/Vol]105 mmol/L98 - 108 mmol/LOhioHealth Creatinine [Mass/Vol]0.97 mg/dL0.50 - 1.30OhioHealthGFR/1.73 sq M predicted among non-blacks MDRD (S/P/Bld) [Vol rate/Area]The eGFR should be used for monitoring renal function only and not for medication dosing.OhioHealthGFR/1.73 sq M.predicted CKD-EPI (S/P/Bld) [Vol rate/Area]88>=60 mL/min/1.73 e3HvftErtfdg Glucose [Mass/Vol]153 mg/tRAcci91 - 99 mg/dLOhioHealthHCO3 [Moles/Vol]26 mmol/L 21 - 32 mmol/LOhioHealthInterpretation and review of laboratory resultsAbnormal OhioHealthPotassium [Moles/Vol]4.0 mmol/L3.5 - 5.1 mmol/LOhioHealthSodium [Moles/Vol]135 mmol/L135 - 145 mmol/LOhioHealthUrea nitrogen [Mass/Vol]14 mg/dL8 - 25 mg/dLOhioHealthUrea nitrogen/Creatinine [Mass ratio]14.4 mg/mgOhioHealth CBCon 79-34-9250Ddlhhrtkcdk distribution width (RBC) [Entitic vol]16.1 %High11.6 - 14.8 %OhioHealthHematocrit (Bld) [Volume fraction]33.3 %Low41 - 53 %[facility] Hemoglobin (Bld) [Mass/Vol]10.0 g/dLLow13.5 - 17.5 g/dLOhioHealthInterpretation and review of laboratory resultsAbnormalOhioHealthMCH (RBC) [Entitic mass]25.3 pgLow26 - 34 pgOhioHealthMCHC (RBC) [Mass/Vol]30.0 g/dLLow31 - 37 g/dLOhioHealth MCV (RBC) [Entitic vol]84.1 fL80 - 100 fLOhioHealthNucleated RBC (Bld) [#/Vol] 0.00 10*3/uLOhioHealthNucleated RBC/100 WBC (Bld) [Ratio]0.0 %[facility] Hospital CompanyPlatelet mean volume (Bld) [Entitic vol]10.4 fL9.4 - 12.4 fLOhioHealthPlatelets (Bld) [#/Vol]583 10*3/uLHighOhioHealthRBC (Bld) [#/Vol]3.96 10*6/uLLowOhioHealthWBC (Bld) [#/Vol]10.09 10*3/uLOhioHealthMagnesium Levelon 39-52-6245Dbvxjhqlniprgm and review of laboratory resultsNormalOhioHealthMagnesium [Mass/Vol]1.9 mg/dL1.6 - 2.4 mg/dLOhioHealthPOC Glucoseon 82-39-0247Sodnkcq [Mass/Vol]160 mg/qUTxfk28 - 99 mg/dLOhioHealthInterpretation and review of laboratory resultsAbnormal OhioHealthGlucose [Mass/Vol]151 mg/kLTzht83 - 99 mg/dLOhioHealthInterpretation and review of laboratory resultsAbnormalOhioHealthGlucose [Mass/Vol]142 mg/dL High65 - 99 mg/dLOhioHealthInterpretation and review of laboratory results AbnormalOhioHealthGlucose [Mass/Vol]138 mg/pRWztp58 - 99 mg/dLOhioHealth Interpretation and review of laboratory resultsAbnormalOhioHealthBasic Metabolic Panelon 83-46-2203Ahrap gap [Moles/Vol]8 mmol/LLow10 - 20 mmol/LOhioHealth Calcium [Mass/Vol]7.8 mg/dLLow8.4 - 10.2 mg/dLOhioHealthChloride [Moles/Vol]105 mmol/L98 - 108 mmol/LOhioHealthCreatinine [Mass/Vol]0.85 mg/dL0.50 - 1.30 OhioHealthGFR/1.73 sq M predicted among non-blacks MDRD (S/P/Bld) [Vol rate/Area]The eGFR should be used for monitoring renal function only and not for medication dosing.OhioHealthGFR/1.73 sq M.predicted CKD-EPI (S/P/Bld) [Vol rate/Area]99>=60 mL/min/1.73 y9GslyItsyurWcbloyd [Mass/Vol]176 mg/dCKcjy99 - 99 mg/dLOhioHealthHCO3 [Moles/Vol]26 mmol/L21 - 32 mmol/LOhioHealthInterpretation and review of laboratory resultsAbnormalOhioHealthPotassium [Moles/Vol]4.0 mmol/L3.5 - 5.1 mmol/LOhioHealthSodium [Moles/Vol]135 mmol/L135 - 145 mmol/L OhioHealthUrea nitrogen [Mass/Vol]13 mg/dL8 - 25 mg/dLOhioHealthUrea nitrogen/Creatinine [Mass ratio]15.3 mg/mgOhioHealthCBCon 28-24-5854Dwsurxnfcjo distribution width (RBC) [Entitic vol]16.0 %High11.6 - 14.8 %[facility] Hematocrit (Bld) [Volume fraction]32.7 %Low41 - 53 %[facility] CompanyHemoglobin (Bld) [Mass/Vol]10.1 g/dLLow13.5 - 17.5 g/dLOhioHealthInterpretation and review of laboratory resultsAbnormalOhioHealthMCH (RBC) [Entitic mass]25.6 pgLow26 - 34 pg [facility] CompanyMCHC (RBC) [Mass/Vol]30.9 g/dLLow31 - 37 g/dLOhioHealthMCV (RBC) [Entitic vol]82.8 fL80 - 100 fLOhioHealthNucleated RBC (Bld) [#/Vol]0.00 10*3/uL OhioHealthNucleated RBC/100 WBC (Bld) [Ratio]0.0 %[facility] CenterPlatelet mean volume (Bld) [Entitic vol]10.4 fL9.4 - 12.4 fLOhioHealthPlatelets (Bld) [#/Vol]545 10*3/uLHighOhioHealthRBC (Bld) [#/Vol]3.95 10*6/uLLowOhioHealthWBC (Bld) [#/Vol] 10.51 10*3/uLOhioHealthMagnesium Levelon 21-18-2749Fzgyvgyjejtiot and review of laboratory resultsNormalOhioHealthMagnesium [Mass/Vol]2.0 mg/dL1.6 - 2.4 mg/dL [facility] Gastric Emptyingon 10-79-8380Wkaigfx gastric emptying. Workstation ID: [id number], Rad In [employer] [facility] - 11/13/2020 1:36 PM EST EXAMINATION: [place] GASTRIC EMPTYING HISTORY: Abdominal discomfort, nausea, vomiting [...] 0-60%). 4 HOURS: 17% (normal range = 0-10%).[facility] Glucoseon 05-90-0170Ydagvxt [Mass/Vol]189 mg/eTPuyw90 - 99 mg/dLOhioHealthInterpretation and review of laboratory resultsAbnormalOhioHealth Glucose [Mass/Vol]186 mg/xCMvfi28 - 99 mg/dLOhioHealthInterpretation and review of laboratory resultsAbnormalOhioHealthGlucose [Mass/Vol]221 mg/uNYovj58 - 99 mg/dLOhioHealthInterpretation and review of laboratory resultsAbnormalOhioHealth Glucose [Mass/Vol]162 mg/qMCycp92 - 99 mg/dLOhioHealthInterpretation and review of laboratory resultsAbnormalOhioHealthTISSUE EXAMon 55-16-8464Bopz Report Surgical Pathology Report Case: [id number] Authorizing Provider: Leanne Cherry DPM Collected: 11/11/2020 04:44 PM Ordering Location: [facility] Peri Received: 11/12/2020 09:31 AM Pathologist: Joni Perez DO Specimen: Foot, Left OhioHealthPathology report final diagnosis Narrative r8inaMCsSYTwsBF8ArYnEIDpl9wue4HgpZGkzJCpYDfhpZMejkUuxn16wYH5kF90HG2kTBOzCoE9EQFh ueJ7Duw8FODaZJHviTYa K208b9vot2ocifWswTU3nCsrTZVqNDZdPTplTOSfGvAuDMSAKaJlZr6gZJYuoyOvbZRbrFldUAIcwPOI u157ZQAldKHwe7htlowh bCYmCYBtywKesWx5PbTopSzqKoNvZXNkXAXbbRGrMB1abJCccJjpkCy6vBBkJJQgnbudHFEmSKTpyg2= [facility] gross observation Narrative w7wjnUVyNUDboFU7UlHxRGLvl3qeo5KbtAZroTWrVTlhoTVzprAvxn94zYO6sI31AZ5pKNHcPjH5OJCh zsO1Ejt6VBIlRWUmyTVc V687i8qqw1vjxmOuuFN0fAyyNUIeNKVtFEqsGUAnPpQwJiAzESj3XPCvbF9tAr2flFFwcF3xMCPxd9zz qwP4JSIeWjYuFx4chKyn NQGzyRFLm48xYmfdFUNqa4HcJ2B0PXRoAPydc2nzUONwXLlef1TtLUqRDDMKMX4WTI8uuPY9CBlSYELI E2mNuIJ3BQUolII6MP01 YVVsLELwgLVxRNleH690fZLaTPttWhllfRZ8CRhsDoywcN9bzQXURLWEUpaCBsgxvuIcPS1XNNRZFR6Y wZU4TNOtnRW3VV51CGYi XWGcgTZvASunY406GEGzRYntHHNjWkHtKNQfRNdwOS40JTHiAU4gFTPjphIsnTEsk0SiyJ6oSPRdAID7 JQXcLxH8ETUzQhFnuZck dy63UEM8b1awzZUpCXhjMtnlrBIacdM4OCsYHJEOFJmOQoFvKQ8sTEfDF3QBVNjDVzxrDLT4S4twtWZ8 u1tibUFkk9y9AKqwGMB3 vM49YXNrUMxld6cgMVZlGJxnz1XbRUbOWAKWXS7EOW9aiKW0IEiARZQWZJrhUHS1M2refZP7z7nrtSKb y9f8MGonITP8sOqacXGz ihxyslRjTGThL5KzcYt1iJRbWPFhctFcOPQssTIeClsgSEUar19vBWBNm7LfdNf0NDJ1Sc2oySPiMKXb bhUpDLCgq8DwjMFaRCNy QzgnCDOqkRFfMPtvLSJmO3ThwUHxOTmmx0VfGZF9MX8pkwS1fP0yATQvyiEmsw6cUQKlrIraNDMrs2Ek XEbtAKnxb6XxhJVyGX3u SkF0SHobRGJyjiMtPZY5RL71ZISDYW2nHthjpCTcEQ9CBBK3ZFLdIZflSPYooNBzCNDoA82UXuBHZXII I20CUFJUZDWOM2EJW0pG LSX7BXIbvWQ2CX8yFWN6B8caYKAnX54GJwGMUDYMO53DEGRUOCVHW1KLDFPCNImYD3BZLG2JTEULGTMC VQ8OECmAEnZZUExZL1XU WF9MPGIKLXDGEM0HRxIvRSbSV7KVZ3vDNXIjLJPXBURWHFTsJmFTUX1tYFd3MEHhsX9hCEHsTRQ5YsMn JRE0UdfcVC7aLNvJSWCt ikKsJ1utAOvduIQ3ZlQePLF5TwssVG9iCQnEO2XLB8cXYBXsUNCPGKMGGJVyCD5QMRvCPH4TOLOlEDBY DAQFWGUmUkAOKE7jIEtY HP4KDQIhWUUPXVLMFYBiZM0TXQFOSI3RAALHCNSOJ62FOCKIYRHER5WTW5wONHNDNSFNPuRRJjKZZA0W ATTUEMEXVL5FUoD3BhqzMbwhuvOwxynihtg report microscopic observation Narrative Other stain a6tlgNXsTCPieNBuVoSrARLhPWYdy0vvJGYafLDnKuBnEsRmUgAdUppfmOAlVIBgGnCvo3otq171wUAc z0uoURElAsP8nPFmQRSh oNHeK262DJCwSPpov5qhn4GzUOZnxUUis6F0OGAMamdxtIk7fAcoM04ks8N5OtrxI3kmRXRzCYEvW4Jy ML4hLQYbHhc7USU8ADP0 LUQoEAIrF7CpNU2vLRDwbBFlTDo0n2inmEuwOEQsXOC7d2icDHyyldAnSC5mfn4uaSb4a0czgaPeOTYv XVUedWEEXMEcL4KyeUmu Mm5zgQn8mWynGkhfWZZ9Rhv4IG9eqx85och9vMrdVZRlpfocBgB2DEnbIFAeweecURh4FRgySIItaTT3 OJMivQWgJ9OiEIJlZJ6r eqh3GZN2LZgtFJLhPgB7WFXkrSJkBRMxkIhwSGesn197VXD3RyDmUV7cN0Kcv4J9eL1chHSeWXWfiRMx AgIiCTQozb0azJYbYJyl h5CyXRB3tyM2hKZumKJsRGSyOZ61Ctktg6XvJcxvRDH4GZRvdsTok9Jfb5wpHcTbvzKvB2hfM7KjORNq YFSdJZGzLfQmcxOcz0Jw y5VjwUWumIq9d6uxPIXgUHGpfYszv5hmZAI0IKSrH2R2eHXtk2fmGAgzXQPfgNO2mrT1UZTnbYBtV2Zw rZ6aXMIrKM9mzih4z0nc BFP7HZitBUHqEmS7hdI8FFXbhBWsKXVtnOitHJzob918PUN4QbTnWTRpv6YnO3LmaWhyV77krThdW38h UDLuhDctuX7uyFcaxZ2v QrUhTlFiFXjofPufsRZmzngnGOznnqDtVGnskebqCPCoZIlzC5rrBiPwULQnfKqnDHjgo7KmIYCfJHVy ToVsKGzgjw6xP05joHAmVQdteKcwWBFff74ygFJabPJsVv4gmSJnNsrrCIA7JjpxNsjnadUX DOPPLER SEGMENTAL ARTERIAL LEGS BILATERALon 61-19-9403SY DOPPLER SEGMENTAL ARTERIAL LEGS BILATERALPatient Info Name: MORE KINGSLEY Age: 55 years : 1965 Gender: Male Exam Date: 11/13/2020 8:13 AM Patient Status: Inpatient Transport Coordinator: Rafat Tony RVT Indications I73.9 - Peripheral vascular disease, unspecified Procedure Description 79909 Complete bilateral noninvasive physiologic studies of upper [...] by ABILIO Gutiérrez DO on 11/13/2020 03:26 [facility] - 11/13/2020 3:27 PM EST Patient Info Name: MORE KINGSLEY Age: 55 years : 1965 Gender: Male Exam Date: 11/13/2020 8:13 AM Patient Status: Inpatient Transport Coordinator: Rafat Tony RVT Indications I73.9 - Peripheral vascular disease, unspecified Procedure Description 12525 Complete bilateral noninvasive physiologic studies of upper [...] Date: 11/13/2020 8:13 AM Patient Status: Inpatient Transport Coordinator: Rafat Tony RVT Indications I73.9 - Peripheral vascular disease, unspecified Procedure Description 91072 Complete bilateral noninvasive physiologic studies of upper [...] ABILIO Gutiérrez DO on 11/13/2020 03:26 PM [facility] Metabolic Panelon 61-40-7128Lwyog gap [Moles/Vol]10 mmol/L10 - 20 mmol/LOhioHealthCalcium [Mass/Vol]8.0 mg/dLLow8.4 - 10.2 mg/dLOhioHealth Chloride [Moles/Vol]104 mmol/L98 - 108 mmol/LOhioHealthCreatinine [Mass/Vol]0.84 mg/dL0.50 - 1.30OhioHealthGFR/1.73 sq M predicted among non-blacks MDRD (S/P/Bld) [Vol rate/Area]The eGFR should be used for monitoring renal function only and not for medication dosing.[facility]HealthGFR/1.73 sq M.predicted CKD-EPI (S/P/Bld) [Vol rate/Area]99>=60 mL/min/1.73 n1ScvfShnwinAzypfoq [Mass/Vol]86 mg/dL65 - 99 mg/dLOhioHealthHCO3 [Moles/Vol]25 mmol/L21 - 32 mmol/LOhioHealth Interpretation and review of laboratory resultsAbnormalOhioHealthPotassium [Moles/Vol]4.1 mmol/L3.5 - 5.1 mmol/LOhioHealthSodium [Moles/Vol]135 mmol/L135 - 145 mmol/LOhioHealthUrea nitrogen [Mass/Vol]10 mg/dL8 - 25 mg/dLOhioHealthUrea nitrogen/Creatinine [Mass ratio]11.9 mg/mgOhioHealthCBCon 66-28-7520Adtlpikkcax distribution width (RBC) [Entitic vol]16.4 %High11.6 - [...] 10*6/uLLowOhioHealthWBC (Bld) [#/Vol] 13.36 10*3/uLHighOhioHealthCOVID-19/INFLUENZA A,B MOLECULARon 08-79-4720SMXNQ- 19/INFLUENZA A,B WJDLIBOPRHJEP-BXU-1 (JESSIKA): Not Detected INFLUENZA A (JESSIKA): Not Detected INFLUENZA B (JESSIKA): Not DetectedNormalFirelands Regional Medical CenterComment on above:Order Comment: This test was performed [...] at the following links: For Healthcare Providers: https://www.fda.gov/media/910545/download For Patients: https://www.fda.gov/media/148764/downloadPerformed By: #### [id number] #### [facility] [address] [address] Warren Barnett M.D. [id number]-21/Influenza A,B Molecularon 01-18-0747Pbtfncxgd ANot Detected Not DetectedOhioHealthInfluenza BNot DetectedNot DetectedOhioHealth Interpretation and review of laboratory kvyovdcUloqctFcjxSxqgglJYPN-FyV-5Ipg DetectedNot DetectedOhioHealthThis test was performed under the [...] found at the following links: For HealthcareProviders: https://www.fda.gov/media/786462/download For Patients: https://www.fda.gov/media/562363/downloadOhioHealthMagnesium Levelon 11-12-2020 Interpretation and review of laboratory resultsNormalOhioHealthMagnesium [Mass/Vol]1.8 mg/dL1.6 - 2.4 mg/dLOhioHealthNM GASTRIC EMPTYINGon 53-01-3841KW GASTRIC EMPTYINGEXAMINATION: NM GASTRIC EMPTYING HISTORY: Abdominal [...] NOE on WedNov 13, 2020 1:34:26 PM [facility] LimaComment on above:Order Comment: Injury/Trauma or Illness?:Illness/Other How long have you had these symptoms (acute/chronic)?:Chronic a few years now Reason for exam?:Recurrent nausea and vomiting and abdominal discomfort uncontrolled diabetes Type of Exam?:Ongoing Additional signs and symptoms?:nausea and vomiting almost daily for a few years now,POC Glucoseon 16-58-8861Sskiosd [Mass/Vol]159 mg/eYRbsu67 - 99 mg/dL OhioHealthInterpretation and review of laboratory resultsAbnormalOhioHealth Glucose [Mass/Vol]161 mg/jXSdze60 - 99 mg/dLOhioHealthInterpretation and review of laboratory resultsAbnormalOhioHealthGlucose [Mass/Vol]153 mg/yLFqcr59 - 99 mg/dLOhioHealthInterpretation and review of laboratory resultsAbnormalOhioHealth Glucose [Mass/Vol]71 mg/dL65 - 99 mg/dLOhioHealthInterpretation and review of laboratory resultsNormalOhioHealthBasic Metabolic Panelon 29-27-0704Pcnuc gap [Moles/Vol]9 mmol/LLow10 - 20 mmol/LOhioHealthCalcium [Mass/Vol]8.1 mg/dLLow8.4 - 10.2 mg/dLOhioHealthChloride [Moles/Vol]106 mmol/L98 - 108 mmol/LOhioHealth Creatinine [Mass/Vol]1.00 mg/dL0.50 - 1.30OhioHealthGFR/1.73 sq M predicted among non-blacks MDRD (S/P/Bld) [Vol rate/Area]The eGFR should be used for monitoring renal function only and not for medication dosing.[facility]HealthGFR/1.73 sq M.predicted CKD-EPI (S/P/Bld) [Vol rate/Area]85>=60 mL/min/1.73 p4FvdeTykbln Glucose [Mass/Vol]108 mg/xUMsey30 - 99 mg/dLOhioHealthHCO3 [Moles/Vol]26 mmol/L 21 - 32 mmol/LOhioHealthInterpretation and review of laboratory resultsAbnormal OhioHealthPotassium [Moles/Vol]4.0 mmol/L3.5 - 5.1 mmol/LOhioHealthSodium [Moles/Vol]137 mmol/L135 - 145 mmol/LOhioHealthUrea nitrogen [Mass/Vol]8 mg/dL8 - 25 mg/dLOhioHealthUrea nitrogen/Creatinine [Mass ratio]8.0 mg/mgLowOhioHealth CBCon 65-71-3944Ooypgxrmkik distribution width (RBC) [Entitic vol]16.2 %High11.6 - 14.8 %[facility] CenterHematocrit (Bld) [Volume fraction]36.2 %Low41 - 53 %[facility] Hemoglobin (Bld) [Mass/Vol]11.2 g/dLLow13.5 - 17.5 g/dLOhioHealthInterpretation and review of laboratory resultsAbnormalOhioHealthMCH (RBC) [Entitic mass]25.7 pgLow26 - 34 pgOhioHealthMCHC (RBC) [Mass/Vol]30.9 g/dLLow31 - 37 g/dLOhioHealth MCV (RBC) [Entitic vol]83.0 fL80 - 100 fLOhioHealthNucleated RBC (Bld) [#/Vol] 0.00 10*3/uLOhioHealthNucleated RBC/100 WBC (Bld) [Ratio]0.0 %[facility] CenterPlatelet mean volume (Bld) [Entitic vol]10.6 fL9.4 - 12.4 fLOhioHealthPlatelets (Bld) [#/Vol]511 10*3/uLHighOhioHealthRBC (Bld) [#/Vol]4.36 10*6/uLLowOhioHealthWBC (Bld) [#/Vol]11.96 10*3/uLHighOhioHealthMagnesium Levelon 11-11-2020 Interpretation and review of laboratory resultsNormalOhioHealthMagnesium [Mass/Vol]1.7 mg/dL1.6 - 2.4 mg/dLOhioHealthInterpretation and review of laboratory resultsNormalOhioHealthMagnesium [Mass/Vol]1.8 mg/dL1.6 - 2.4 mg/dL [facility] Glucoseon 11-96-5352Odhblyf [Mass/Vol]104 mg/mNYkvq18 - 99 mg/dL OhioHealthInterpretation and review of laboratory resultsAbnormalOhioHealth Glucose [Mass/Vol]86 mg/dL65 - 99 mg/dLOhioHealthInterpretation and review of laboratory resultsNormalOhioHealthGlucose [Mass/Vol]106 mg/wCDuno66 - 99 mg/dL OhioHealthInterpretation and review of laboratory resultsAbnormalOhioHealth Glucose [Mass/Vol]115 mg/mTCxfj27 - 99 mg/dLOhioHealthInterpretation and review of laboratory resultsAbrmalOhioHealthBasi Metabolic Panelon 20-64-5485Epdda gap [Moles/Vol]9 mmol/LLow10 - 20 mmol/LOhioHealthCalcium [Mass/Vol]7.9 mg/dLLow 8.4 - 10.2 mg/dLOhioHealthChloride [Moles/Vol]104 mmol/L98 - 108 mmol/L [facility] CenterCreatinine [Mass/Vol]0.94 mg/dL0.50 - 1.30OhioHealthGFR/1.73 sq M predicted among non-blacks MDRD (S/P/Bld) [Vol rate/Area]The eGFR should be used for monitoring renal function only and not for medication dosing.[facility] GFR/1.73 sq M.predicted CKD-EPI (S/P/Bld) [Vol rate/Area]92>=60 mL/min/1.73 m2 [facility] CenterGlucose [Mass/Vol]151 mg/aLFcls68 - 99 mg/dLOhioHealthHCO3 [Moles/Vol] 26 mmol/L21 - 32 mmol/LOhioHealthInterpretation and review of laboratory results AbnormalOhioHealthPotassium [Moles/Vol]3.4 mmol/LLow3.5 - 5.1 mmol/LOhioHealth Sodium [Moles/Vol]136 mmol/L135 - 145 mmol/LOhioHealthUrea nitrogen [Mass/Vol]8 mg/dL8 - 25 mg/dLOhioHealthUrea nitrogen/Creatinine [Mass ratio]8.5 mg/mgLow OhioHealthCBCon 70-82-3706Rnebnpnlmeo distribution width (RBC) [Entitic vol]16.4 %High11.6 - [...] (Bld)No Growth After 5 DaysOhioHealthMagnesium Level on 24-69-9068Gglafhfwhojbbv and review of laboratory resultsNormalOhioHealth Magnesium [Mass/Vol]1.9 mg/dL1.6 - 2.4 mg/dLOhioHealthPOC Glucoseon 2020 Glucose [Mass/Vol]136 mg/uRZzgp14 - 99 mg/dLOhioHealthInterpretation and review of laboratory resultsAbnormalOhioHealthGlucose [Mass/Vol]137 mg/aZXsbb68 - 99 mg/dLOhioHealthInterpretation and review of laboratory resultsAbnormalOhioHealth Glucose [Mass/Vol]151 mg/pPHsit32 - 99 mg/dLOhioHealthInterpretation and review of laboratory resultsAbnormalOhioHealthGlucose [Mass/Vol]167 mg/tFVfqt00 - 99 mg/dLOhioHealthInterpretation and review of laboratory resultsAbnormalOhioHealth Glucose [Mass/Vol]154 mg/sDLgda72 - 99 mg/dLOhioHealthInterpretation and review of laboratory resultsAbnormalOhioHealthGlucose [Mass/Vol]58 mg/dLLow65 - 99 mg/dLOhioHealthInterpretation and review of laboratory resultsAbnormalOhioHealth Basic Metabolic Panelon 66-38-8210Xoupz gap [Moles/Vol]11 mmol/L10 - 20 mmol/L OhioHealthCalcium [Mass/Vol]7.6 mg/dLLow8.4 - 10.2 mg/dLOhioHealthChloride [Moles/Vol]103 mmol/L98 - 108 mmol/LOhioHealthCreatinine [Mass/Vol]0.84 mg/dL 0.50 - 1.30OhioHealthGFR/1.73 sq M predicted among non-blacks MDRD (S/P/Bld) [Vol rate/Area]The eGFR should be used for monitoring renal function only and not for medication dosing.OhioHealthGFR/1.73 sq M.predicted CKD-EPI (S/P/Bld) [Vol rate/Area]100>=60 mL/min/1.73 u6VboqVrruvjVnvactb [Mass/Vol]85 mg/dL65 - 99 mg/dLOhioHealthHCO3 [Moles/Vol]24 mmol/L21 - 32 mmol/LOhioHealthInterpretation and review of laboratory resultsAbnormalOhioHealthPotassium [Moles/Vol]3.1 mmol/LLow3.5 - 5.1 mmol/LOhioHealthSodium [Moles/Vol]135 mmol/L135 - 145 mmol/L OhioHealthUrea nitrogen [Mass/Vol]10 mg/dL8 - 25 mg/dLOhioHealthUrea nitrogen/Creatinine [Mass ratio]11.9 mg/mgOhioHealthCBCon 03-21-7229Ipayzyyrfbp distribution width (RBC) [Entitic vol]16.2 %High11.6 - 14.8 %[facility] Hematocrit (Bld) [Volume fraction]35.8 %Low41 - 53 [...] [#/Vol]4.32 10*6/uLLowOhioHealthWBC (Bld) [#/Vol] 11.42 10*3/uLHighOhioHealthMagnesium Levelon 12-85-4194Rwdprmjumwltts and review of laboratory resultsNormalOhioHealthMagnesium [Mass/Vol]1.7 mg/dL1.6 - 2.4 mg/dLOhioHealthPOC Glucoseon 61-45-4496Xtkfagr [Mass/Vol]112 mg/lVSztm33 - 99 mg/dLOhioHealthInterpretation and review of laboratory [...] and review of laboratory resultsAbnormalOhioHealthUrine Aerobic Cultureon 89-03-3644Ypnuofxq identified Aer cx Nom (Unsp spec)No Growth (<1,000 CFU/mL)OhioHealthWOUND AEROBIC CULTUREon 71-66-9573Egxgfmei identified Aer cx Nom (Wound)Light Growth Staphylococcus aureusAbnormalOhioHealthComment on above:See susceptibility from same source/different date: 11/06/2020 Interpretation and review of laboratory resultsAbnormalOhioHealthMicroscopic observation Gram stain Nom (Wound)PositiveOhioHealthMicroscopic observation Gram stain Nom (Wound)Many WBCOhioHealthMicroscopic observation Gram stain Nom (Wound)No Epithelial Cells SeenOhioHealthBasic Metabolic Panelon 42-57-2728Zluct gap [Moles/Vol]9 mmol/LLow10 - 20 mmol/LOhioHealthCalcium [Mass/Vol]7.8 mg/dL Low8.4 - 10.2 mg/dLOhioHealthChloride [Moles/Vol]104 mmol/L98 - 108 mmol/L OhioHealthCreatinine [Mass/Vol]0.98 mg/dL0.50 - 1.30OhioHealthGFR/1.73 sq M predicted among non-blacks MDRD (S/P/Bld) [Vol rate/Area]The eGFR should be used for monitoring renal function only and not for medication dosing.[facility] GFR/1.73 sq M.predicted CKD-EPI (S/P/Bld) [Vol rate/Area]88>=60 mL/min/1.73 m2 OhioHealthGlucose [Mass/Vol]136 mg/qNQbfl07 - 99 mg/dLOhioHealthHCO3 [Moles/Vol] 25 mmol/L21 - 32 mmol/LOhioHealthInterpretation and review of laboratory results AbnormalOhioHealthPotassium [Moles/Vol]3.4 mmol/LLow3.5 - 5.1 mmol/LOhioHealth Sodium [Moles/Vol]135 mmol/L135 - 145 mmol/LOhioHealthUrea nitrogen [Mass/Vol]14 mg/dL8 - 25 mg/dLOhioHealthUrea nitrogen/Creatinine [Mass ratio]14.3 mg/mg OhioHealthOtheron 78-00-1634Rywtbelt identified Aer cx Nom (Wound)Moderate Growth Staphylococcus aureusAbnormalOhioHealthComment on above:This Staphylococcus aureus is Methicillin SUSCEPTIBLE by PBP2a testing. Beta-lactams like Cefazolinand Nafcillin are superior to Vancomycin for treating mSsa. Interpretation and review of laboratory resultsAbnormalOhioHealthMicroscopic observation Gram stain Nom (Wound)No Epithelial Cells SeenOhioHealthPOC Glucose on 52-69-2620Xmcetsi [Mass/Vol]105 mg/iXYxhs42 - 99 mg/dLOhioHealth Interpretation and review of laboratory resultsAbnormalOhioHealthGlucose [Mass/Vol]98 mg/dL65 - 99 mg/dLOhioHealthInterpretation and review of laboratory resultsNormalOhioHealthGlucose [Mass/Vol]109 mg/vLVvpx48 - 99 mg/dLOhioHealth Interpretation and review of laboratory resultsAbnormalOhioHealthGlucose [Mass/Vol]107 mg/aHNnnf46 - 99 mg/dLOhioHealthInterpretation and review of laboratory resultsAbnormalOhioHealthWOUND AEROBIC CULTUREon 80-62-9293Imsqgmjs identified Aer cx Nom (Wound)Moderate Growth Streptococcus agalactiae (Group B) AbnormalOhioHealthMicroscopic observation Gram stain Nom (Wound)Positive OhioHealthMicroscopic observation Gram stain Nom (Wound)No Organisms Seen OhioHealthMicroscopic observation Gram stain Nom (Wound)Few WBCOhioHealth Microscopic observation Gram stain Nom (Wound)Rare WBCOhioHealthSee susceptibility from same source/same date.[facility] CenterCBC WITH AUTO DIFFERENTIALon 61-56-8278Xybabucph (Bld) [#/Vol]0.09 10*3/uLOhioHealthBasophils/100 WBC (Bld) 0.7 %OhioHealthEosinophils (Bld) [#/Vol]0.22 10*3/uLOhioHealthEosinophils/100 WBC (Bld)1.8 %[facility]Regency Hospital CompanyErythrocyte distribution width (RBC) [Entitic vol]15.9 % High11.6 [...] (Bld) [#/Vol]4.25 10*6/uLLowOhioHealthWBC (Bld) [#/Vol]12.03 10*3/uLHighOhioHealthPOC Glucoseon 93-96-8073Avbxgrr [Mass/Vol]178 mg/iWGlwp41 - 99 mg/dLOhioHealthInterpretation and review of laboratory resultsAbnormalOhioHealthGlucose [Mass/Vol]205 mg/dL High65 - 99 mg/dLOhioHealthInterpretation and review of laboratory results AbnormalOhioHealthGlucose [Mass/Vol]221 mg/lTGuxv88 - 99 mg/dLOhioHealth Interpretation and review of laboratory resultsAbnormalOhioHealthGlucose [Mass/Vol]206 mg/mZBcsy86 - 99 mg/dLOhioHealthInterpretation and review of laboratory resultsAbnormalOhioHealthGlucose [Mass/Vol]209 mg/jBQeuw83 - 99 mg/dL OhioHealthInterpretation and review of laboratory resultsAbnormalOhioHealthC3 COMPLEMENTon 73-36-0483Ixhyiuhtxs C3 [Mass/Vol]151.9 mg/dL73 - 183 mg/dL OhioHealthC4 COMPLEMENTon 59-71-7562Szpbojeuqx C4 [Mass/Vol]21.6 mg/dL16 - 47 mg/dLNcioHealthCBC WITH AUTO DIFFERENTIALon 65-91-0511Fmmcypbme (Bld) [#/Vol] 0.07 10*3/uLOhioHealthBasophils/100 WBC (Bld)0.5 %OhioHealthEosinophils (Bld) [#/Vol]0.05 10*3/uLOhioHealthEosinophils/100 WBC (Bld)0.3 %[facility] CenterErythrocyte distribution width (RBC) [Entitic vol]15.4 %High11.6 - 14.8 %[facility] Hematocrit (Bld) [Volume fraction]34.1 %Low41 - 53 %[facility] CenterHemoglobin (Bld) [Mass/Vol]10.8 g/dLLow13.5 - 17.5 g/dLTexasHealthImmature granulocytes (Bld) [#/Vol]0.14 10*3/uLOhioHealthImmature granulocytes/100 WBC (Bld)0.90 %[facility] Comment on above:The IG parameter is the [...] 10*6/uLLowOhioHealthWBC (Bld) [#/Vol] 15.27 10*3/uLHighOhioHealthCT COMPARISON IMPORTon 87-33-6552Mqix order has been auto-finalized and does not contain a result.[facility] CenterHemoglobin A1con 63-96-7749Vfdtjks glucose Estimated from glycated hemoglobin mass conc (Bld)189 mg/mPOzcb03 - 114 mg/rQPxdiIiixkbXlI3q (Bld) [Mass fraction]8.2 %High4 - 5.6 % OhioHealthInterpretation and review of laboratory resultsAbnormalOhioHealth Normal: 4.0% - 5.6% Increased risk for diabetes: 5.7% - 6.4% Diabetes: >= 6.5% Pediatrics: No established reference range Estimated average glucose: 68-114 mg/dLOhioHealthLactic Acid, Plasmaon 44-70-9264Depufdhthbdshz and review of laboratory resultsAbnormalOhioHealthLactate [Moles/Vol]2.3 mmol/LHigh0.6 - 2 mmol/LOhioHealthMR Foot Left With And Without Contraston 32-82-7558Zszwwzztk, Rad In Jessie Lazoq - 11/06/2020 9:29 [...] forefoot muscles presumably related to chronic diabetic neuropathy.[facility]1. Abnormal appearance of the midfoot particularly at [...] 388RRAOhioHealthMR Foot Right With And Without Contraston 42-18-6900Nlaoaxaks, Rad In [facility] Speechq - 11/06/2020 9:00 PM EST [...] dome osteochondral lesion is seen. There is xgbu-ys-hzbvpbrz mid and hindfoot osteoarthritis with scattered marginal [...] 3. No MR signs of osteomyelitis. 4. Jqkd-jb-bqphjylc mid/hindfoot osteoarthritis. 5. Remote sprains of the ATFL and deep fibers of the deltoid ligament, as above. [employer] Workstation ID: [id number]: MR FOOT RIGHT WITH [...] dome osteochondral lesion is seen. There is dcfx-ld-pybfpziz mid and hindfoot osteoarthritis with scattered marginal [...] 3. No MR signs of osteomyelitis. 4. Kavn-ox-dugixmmr mid/hindfoot osteoarthritis. 5. Remote sprains of the ATFL and deep fibers of the deltoid ligament, as above. [employer] Workstation ID: [id number] 62-48-4023Mzvykglah [Mass/Vol]1.9 mg/dL1.6 - 2.4 mg/dLOhioHealthOtheron 40-33-5747Nmbwqscbbjdinp and review of laboratory resultsNormalOhioHealthEXAMINATION: XR FOOT [...] LEFT: BONES: No acute fracture or dislocation. Xbsc-uv-hmzbohly degenerative changes throughout the foot. Severe degenerativechanges the 1st metatarsophalangeal joint with bony remodeling, kvfd-mi-yhxp articulation and marginal osteophyte formation. Enthesopathic spurring of the calcaneus. SOFT TISSUES: Moderate soft tissue swelling EFFUSION: None visible. OTHER: Negative.[facility] plain film evidence of osteomyelitis in the right or left foot Workstation ID: [id number], Rad In [facility] - 11/06/2020 10:30 AM EST EXAMINATION: [...] LEFT: BONES: No acute fracture or dislocation. Mngb-ag-jgdollmk degenerative changes throughout the foot.Severe degenerative changes the 1st metatarsophalangeal joint with bony remodeling, dcst-ps-kisf articulation and marginal osteophyte formation. Enthesopathic spurring of the calcaneus. SOFT TISSUES: Moderate soft tissue swelling EFFUSION: None visible. OTHER: Negative. IMPRESSION: No definite plain film evidence of osteomyelitis in the right or left foot Workstation ID: [id number] and review of laboratory results NormalOhioHealthPOC Glucoseon 61-03-2096Konbjry [Mass/Vol]327 mg/hYMqwn31 - 99 mg/dLOhioHealthInterpretation and review of laboratory resultsAbnormalOhioHealth Glucose [Mass/Vol]301 mg/xBEmqa00 - 99 mg/dLOhioHealthInterpretation and review of laboratory resultsAbnormalOhioHealthGlucose [Mass/Vol]272 mg/jXFrho19 - 99 mg/dLOhioHealthInterpretation and review of laboratory resultsAbnormalOhioHealth Glucose [Mass/Vol]346 mg/eIHsta86 - 99 mg/dLOhioHealthInterpretation and review of laboratory resultsAbnormalOhioHealthGlucose [Mass/Vol]303 mg/cYJlyy94 - 99 mg/dLOhioHealthInterpretation and review of laboratory resultsAbnormalOhioHealth Procalcitoninon 54-47-5922Ygvrovcjlmnnfe and review of laboratory results AbnormalOhioHealthProcalcitonin [Mass/Vol]3.85 ng/mLHigh<0.50OhioHealthResults >2.00 ng/ml represent a high risk of severe sepsis and/or septic shock. OhioHealthProtein / Creatinine Ratio, Urineon 31-41-3388Trbplahvou (U) [Mass/Vol]36.6 mg/dLOhioHealthInterpretation and review of laboratory results AbnormalOhioHealthProtein (U) [Mass/Vol]61.1 mg/dLOhioHealthProtein/Creatinine (U) [Ratio]1.7HighOhioHealthReflex Lactic Acid, Plasmaon 11-06-2020 Interpretation and review of laboratory resultsAbnormalOhioHealthLactate [Moles/Vol]2.1 mmol/LHigh0.6 - 2 mmol/LOhioHealthRenal Function Panelon 62-20-2864Bnwnjgz [Mass/Vol]1.5 g/dLLow3.2 - 5.2 g/dLOhioHealthAnion gap [Moles/Vol]13 mmol/L10 - 20 mmol/LOhioHealthCalcium [Mass/Vol]7.7 mg/dLLow8.4 - 10.2 mg/dLOhioHealthChloride [Moles/Vol]104 mmol/L98 - 108 mmol/LOhioHealth Creatinine [Mass/Vol]1.54 mg/dLHigh0.50 - 1.30OhioHealthGFR/1.73 sq M predicted among non-blacks MDRD (S/P/Bld) [Vol rate/Area]The eGFR should be used for monitoring renal function only and not for medication dosing.OhioHealthGFR/1.73 sq M.predicted CKD-EPI (S/P/Bld) [Vol rate/Area]51Low>=60 mL/min/1.73 m2 OhioHealthGlucose [Mass/Vol]281 mg/aMSeqm59 - 99 mg/dLOhioHealthHCO3 [Moles/Vol] 19 mmol/LLow21 - 32 mmol/LOhioHealthInterpretation and review of laboratory resultsAbnormalOhioHealthPhosphate [Mass/Vol]2.2 mg/dLLow2.7 - 4.5 mg/dL OhioHealthPotassium [Moles/Vol]3.8 mmol/L3.5 - 5.1 mmol/LOhioHealthSodium [Moles/Vol]132 mmol/MOtp099 - 145 mmol/LOhioHealthUrea nitrogen [Mass/Vol]36 mg/dLHigh8 - 25 mg/dLOhioHealthUrea nitrogen/Creatinine [Mass ratio]23.4 mg/mg HighOhioHealthTSHon 64-96-8695NXU Qn0.80 m[IU]/LOhioHealthURINALYSISon 46-03-9771Xhcuugpx Auto Ql (U)RareAbnormalNone Seen /hpfOhioHealthBilirubin Ql (U)NegativeNegativeOhioHealthClarity [...] are present they are quantified by microscopic examination.[facility] CenterXR COMPARISON IMPORTon 56-72-0808Irmi order has been auto-finalized and does not contain a result.[facility] CenterXR FOOT LEFT 3+ VIEWS (STANDARD)on 37-67-3688ED FOOT LEFT 3+ VIEWS (STANDARD)EXAMINATION: XR FOOT [...] LEFT: BONES: No acute fracture or dislocation. Omwm-ie-dvkipmlj degenerative changes throughout the foot. Severe degenerative changes the 1st metatarsophalangeal joint with bony remodeling, fvja-mv-hpxs articulation and marginal osteophyte formation. 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 Dzsu-bo-azhinjpu degenerative changes throughout the foot. Severe degenerative changes the 1st metatarsophalangeal joint with bony remodeling, kxba-ji-yfdl articulation and marginal osteophyte formation. Enthesopathic spurring [...] LA on WedNov 06, 2020 10:27:44 AM [facility] on above:Order Comment: Injury/Trauma or Illness?:Illness/Other How long have you had these symptoms (acute/chronic)?:Acute Reason for exam?:Secondary DM with DKA (HCC) History of cancer?: Surgeries, chemotherapy, or radiation?: Type of Exam?:Initial Additional signs and symptoms?:Secondary DM with DKA (HCC), no known injury Beta-Hydroxybutyrateon 70-51-0165Mcye hydroxybutyrate [Moles/Vol]1.4 mmol/LHigh0 - 0.3 mmol/LOhioHealthInterpretation and review of laboratory resultsAbnormal [facility] WITH AUTO DIFFERENTIALon 69-24-1212Ilnfowryy (Bld) [#/Vol]0.07 10*3/uLOhioHealthBasophils/100 WBC (Bld)0.4 %[facility]HealthEosinophils (Bld) [#/Vol] 0.01 10*3/uLOhioHealthEosinophils/100 WBC (Bld)0.1 %[facility] CenterErythrocyte distribution width (RBC) [Entitic vol]15.2 %High11.6 - 14.8 %[facility] Hematocrit (Bld) [Volume fraction]37.7 %Low41 - 53 %[facility]Reg[facility] Hospital CompanyHemoglobin (Bld) [Mass/Vol]11.9 g/dLLow13.5 - 17.5 g/dLOhioHealthImmature granulocytes (Bld) [#/Vol]0.10 10*3/uLOhioHealthImmature granulocytes/100 WBC (Bld)0.60 %[facility] Comment on above:The IG parameter is the percentage of metamyelocytes, myelocytes and promyelocytes. An immature granulocyte count (IG) of 1% or more suggests the possibility of infection, an IG count of 3% is very likely related to an infection.Interpretation and review of laboratory resultsAbnormal OhioHealthLymphocytes (Bld) [#/Vol]0.60 10*3/uLLowOhioHealthLymphocytes/100 WBC (Bld)3.8 %[facility] CenterMCH (RBC) [Entitic mass]26.3 pg26 - 34 pgOhioHealthMCHC (RBC) [Mass/Vol]31.6 g/dL31 - 37 g/dLOhioHealthMCV (RBC) [Entitic vol]83.4 fL80 - 100 fLOhioHealthMonocytes (Bld) [#/Vol]1.71 10*3/uLHighOhioHealthMonocytes/100 WBC (Bld)10.8 %OhioHealthNeutrophils (Bld) [#/Vol]13.36 10*3/uLHighOhioHealth Neutrophils/100 WBC (Bld)84.3 %OhioHealthNucleated RBC (Bld) [#/Vol]0.00 10*3/uL OhioHealthNucleated RBC/100 WBC (Bld) [Ratio]0.0 %[facility] CenterPlatelet mean volume (Bld) [Entitic vol]11.0 fL9.4 - 12.4 fLOhioHealthPlatelets (Bld) [#/Vol]274 10*3/uLOhioHealthRBC (Bld) [#/Vol]4.52 10*6/uLOhioHealthWBC (Bld) [#/Vol]15.85 10*3/uLHighOhioHealthCPK NO MBon 56-95-0303NW [Catalytic activity/Vol]98 U/L60 - 225 U/LOhioHealthInterpretation and review of laboratory resultsNormalOhioHealth CRP, Inflammationon 42-21-1769ASI [Mass/Vol]468.0 mg/LHigh<=10.0OhioHealth Comprehensive Metabolic Panelon 08-99-5197Irdkupy [Mass/Vol]1.8 g/dLLow3.2 - 5.2 g/dLOhioHealthALP [Catalytic activity/Vol]95 [...] sq M.predicted CKD-EPI (S/P/Bld) [Vol rate/Area]41Low>=60 mL/min/1.73 l1RazpYeqrneXormqnn [Mass/Vol]309 mg/dHPljn16 - 99 mg/dLOhioHealth HCO3 [Moles/Vol]22 mmol/L21 - 32 mmol/LOhioHealthPotassium [Moles/Vol]3.3 mmol/L Low3.5 - 5.1 mmol/LOhioHealthProtein [Mass/Vol]8.1 g/dLHigh6 - 8 g/dLOhioHealth Sodium [Moles/Vol]130 mmol/LCvh215 - 145 mmol/LOhioHealthUrea nitrogen [Mass/Vol]42 mg/dLHigh8 - 25 mg/dLOhioHealthUrea nitrogen/Creatinine [Mass ratio]23.1 mg/mgHighOhioHealthLactic Acid, Plasmaon 37-78-8460Ukrkhecqcgiest and review of laboratory resultsAbnormalOhioHealthLactate [Moles/Vol]3.1 mmol/LHigh 0.6 - 2 mmol/LOhioHealthMR FOOT LEFT WITH AND WITHOUT CONTRASTon 18-55-2054KJ FOOT LEFT WITH AND WITHOUT CONTRASTEXAMINATION: MR [...] OLIVERA on WedNov 06, 2020 9:27:00 PM [facility] LimaComment on above:Order Comment: Injury/Trauma or Illness?:Illness/Other How long have you had these symptoms (acute/chronic)?:Acute Reason for exam?:Non healing wounds lateral / dorsal aspect x 7 days Type of Exam?:Initial Additional signs and symptoms?:naMR FOOT RIGHT WITH AND WITHOUT CONTRASTon 19-50-1680TF FOOT RIGHT WITH AND WITHOUT CONTRASTEXAMINATION: MR [...] dome osteochondral lesion is seen. There is jccv-mb-mjmlilag mid and hindfoot osteoarthritis with scattered marginal [...] 3. No MR signs of osteomyelitis. 4. Oxbo-es-aydjpfsf mid/hindfoot osteoarthritis. 5. Remote sprains of the ATFL and deep fibers of the deltoid ligament, as above. [facility] Workstation ID: [id number] Dictated by: CHAN OLIVERA on WedNov 06, 2020 8:37:02 PM EST Transcribed by: DEBRA BOLIVAR on WedNov 06, 2020 8:49:17 PM EST Finalized by: CHAN OLIVERA on WedNov 06, 2020 8:58:02 PM [facility] LimaComment on above:Order Comment: Injury/Trauma or Illness?:Illness/Other How long have you had these symptoms (acute/chronic)?:Acute Reason for exam?:non healing wound on top of foot History of cancer?: Surgeries, chemotherapy, or radiation?: Type of Exam?:Initial Additional signs and symptoms?:painMagnesiumon 75-32-5400Ubsbtimpslfpms and review of laboratory resultsNormalOhioHealthMagnesium [Mass/Vol]2.0 mg/dL1.6 - 2.4 mg/dLOhioHealthOtheron 82-25-2368Qpwcbgyrjniehf and review of laboratory resultsAbnormalOhioHealthPhosphoruson 45-16-4917Uyghovxnc [Mass/Vol]1.6 mg/dLLow 2.7 - 4.5 mg/dLOhioHealthSedimentation Rateon 83-18-1324CBE (Bld) [Velocity]110 mm/hHighOhioHealthInterpretation and review of laboratory resultsAbnormal OhioHealthTROPONINon 62-37-9445Capsfwfw I.cardiac [Mass/Vol]ng/mL<=45 ng/L OhioHealthTroponin I.cardiac [Mass/Vol]No biomarker evidence of cardiac injury. OhioHealthTroponin I.cardiac [Mass/Vol]ng/mL<=45 ng/LOhioHealthTroponin I.cardiac [Mass/Vol]NormalOhioHealthXR CHEST PA/APon 82-47-9065JQ CHEST PA/AP EXAMINATION: XR CHEST PA/AP 11/05/2020 [...] LEGGETT on WedNov 05, 2020 8:04:45 PM [facility] above:Order Comment: Injury/Trauma or Illness?:Illness/Other How long have you had these symptoms (acute/chronic)?:Acute Reason for exam?:SOB History of cancer?: Surgeries, chemotherapy, or radiation?: Type of Exam?:Initial Additional signs and symptoms?:nXR Chest 1 Viewon 86-40-0959Rbtbsdjeb, Rad In [employer] Speechq - 11/05/2020 8:07 [...] effusion or pneumothorax. No acute osseous abnormality. [facility] Systemallow lungs with right basilar opacity, could be atelectasis or pneumonia Workstation ID: [id number] A1Con 35-70-1063Cpdwwtblkj A1c/Hemoglobin.total mass fraction (Bld)7.6 %High4.0-6.0The UC HealthComment on above:Performed By: #### [id number] #### [facility] [address] [place] [address], [facility]ICAL CENTERHemoglobin A1c/Hemoglobin.total mass fraction (Bld)171 mg/jIBieh18-932Bqo UC HealthComment on above:Performed By: #### [id number] #### [facility] [address] [place] [address], [place] Vital Signs Date TimeVital SignValuePerforming UpxatpikqVepbzokh34-10-6588 08:28-0400Body mass index (BMI) [Ratio]38.62 kg/x1WhtoerbArt Freeman DO Work Phone: [facility] [employer] Mxzcmh30-16-2372 08:28-0400Body hpyaecovwnn50.7 [degF]Art Freeamn DO Work Phone: [facility] [employer] Jfshsx13-87-5593 08:28-0400Body rhexfk872.94 kgArt Freeman DO Work Phone: [facility] [employer] Hmmjwq08-65-1175 08:28-0400Diastolic blood hvzunnac65 mm[Hg]Art Freeman DO Work Phone: [phone] [employer] Bnzedj68-00-3244 08:28-0400Heart rate 92 /minMicfelicia Freeman DO Work Phone: [facility]10-31-2025 08:28-9048TgB8% (BldA) [Mass fraction]96 %Art Freeman DO Work Phone: [facility] [employer] Ihhukt72-50-7246 08:28-0400Systolic blood qusfvadz680 mm[Hg]Art Freeman DO Work Phone: [facility]10-22-2025 10:45-0400Body vfnoohdaddv85.2 [degF]Cheng Staples FLY FINISHER-C Work Phone: [facility]10-22-2025 10:45-0400 Diastolic blood rpiijgmb26 mm[Hg]Cheng Staples FLY FINISHER-C Work Phone: [facility]10-22-2025 10:45-0400 Heart rate88 /minLisa Aichholz FLY FINISHER-C Work Phone: [facility]10-22-2025 10:45-0400 Respiratory rate16 /minLisa Aichholz FLY FINISHER-C Work Phone: [facility]10-22-2025 10:45-0400 SaO2% (BldA) [Mass fraction]98 %Cheng Staples FLY FINISHER-C Work Phone: [facility]10-22-2025 10:45-0400 Systolic blood mlrjxvao011 mm[Hg]Cheng Staples FLY FINISHER-C Work Phone: [facility]09-22-2025 08:17-0400 Body mass index (BMI) [Ratio]37.31 kg/m2Pm[address]09-22-2025 08:17-0400Body yeqbuq010.[address]09-22-2025 08:17-0400 Diastolic blood hpwohesu11 mm[Hg][address]09-22-2025 08:17-0400Heart rate94 /min[address]09-22-2025 08:17-0400 Systolic blood emaibfgd742 mm[Hg][address]09-19-2025 10:17-0400Body mass index (BMI) [Ratio]37.46 kg/h2Vzyhbzy Badik DO Work Phone: [facility]09-19-2025 10:17-0400Body npdmbdjdyyj43.59 [degF]Art Freeman DO Work Phone: [facility]09-19-2025 10:17-0400Body ckjupp106.4 kgMicfelicia Freeman DO Work Phone: [facility]09-19-2025 10:17-0400Diastolic blood vtbtpecj15 mm[Hg]Art Freeman DO Work Phone: [facility]09-19-2025 10:17-0400Heart rate 82 /minMicfelicia Freeman DO Work Phone: [facility] [employer] Autrgu43-57-3500 10:17-5642DzL6% (BldA) [Mass fraction]96 %Art Freeman DO Work Phone: [facility]09-19-2025 10:17-0400Systolic blood fhzhgedf651 mm[Hg]Art Freeman DO Work Phone: [facility]08-25-2025 13:30-0400Body mass index (BMI) [Ratio]37.59 kg/m2Pmh [address] [place], [place] 9440208-25-2025 13:30-0400 Body zbulin958.[address] [place], [place] 9440208-18-2025 12:22-0400Diastolic blood bchvhaht92 mm[Hg]Cheng Aichholz Work Phone: [facility]08-18-2025 12:22-0400 Heart rate78 /minLisa Aichholz Work Phone: [facility]08-18-2025 12:22-0400 Respiratory rate16 /minLisa Aichholz Work Phone: [phone]-[facility]08-18-2025 12:22-0400 SaO2% (BldA) [Mass fraction]95 %Cheng Aichholz Work Phone: [facility]08-18-2025 12:22-0400 Systolic blood gfonttwa479 mm[Hg]Cheng Aichholz Work Phone: [phone]-[facility]08-18-2025 10:40-0400 Inhaled oxygen flow rate2 L/minLisa Aichholz Work Phone: [facility]08-18-2025 08:31-0400 Body cztuse817.8 cmLisa Aichholz Work Phone: [facility]08-18-2025 08:31-0400 Body pwzxmo760.02 kgLisa Aichholz Work Phone: [facility]08-14-2025 09:26-0400 Body mass index (BMI) [Ratio]37.54 kg/v2Oftakzwfelicia Freeman DO Work Phone: [facility]08-14-2025 09:26-0400Body vfapscgxtiz73.1 [degF]Art Freeman DO Work Phone: [facility]08-14-2025 09:26-0400Body qdhtef408.67 kgMichaedaryn Badik DO Work Phone: [facility]08-14-2025 09:26-0400Diastolic blood mllplult48 mm[Hg]Art Freeman DO Work Phone: [facility]08-14-2025 09:26-0400Heart rate 90 /minMicfelicia Freeman DO Work Phone: [facility]08-14-2025 09:26-0429VwB3% (BldA) [Mass fraction]95 %Art Freeman DO Work Phone: [facility]08-14-2025 09:26-0400Systolic blood lprpinge616 mm[Hg]Art Freeman DO Work Phone: [facility]08-07-2025 10:48-0400Body lmyfec446.8 cmLisa Aichholz Work Phone: [facility]08-07-2025 10:48-0400 Body mass index (BMI) [Ratio]38.2 kg/m2Lisa Aichholz Work Phone: [facility]08-07-2025 10:48-0400 Body eqpmlyyajin48.2 [degF]Cheng Aichholz Work Phone: [facility]08-07-2025 10:48-0400 Body jwyftg651.1 kgLisa Aichholz Work Phone: [facility]08-07-2025 10:48-0400 Diastolic blood tagotqhk09 mm[Hg]Cheng Aichholz Work Phone: [facility]08-07-2025 10:48-0400 Heart rate68 /minLisa Aichholz Work Phone: [facility]08-07-2025 10:48-0400 Respiratory rate16 /minLisa Aichholz Work Phone: [facility]08-07-2025 10:48-0400 SaO2% (BldA) [Mass fraction]98 %Cheng Staples Work Phone: [facility]08-07-2025 10:48-0400 Systolic blood mm[Hg]Cheng Staples Work Phone: [facility]06-19-2025 09:29-0400 Body mass index (BMI) [Ratio]38.11 kg/c0Alssgkqfelicia Freeman DO Work Phone: [facility] [employer] Seapvj80-46-2801 09:29-0400Body mmcjtolzmut26.81 [degF]Art Freeman DO Work Phone: [facility] [employer] Zhtqxa09-80-0839 09:29-0400Body qnpuuz056.39 kgMicfelicia Freeman DO Work Phone: [facility] [employer] Kemqfj85-31-5886 09:29-0400Diastolic blood yekmprbx61 mm[Hg]Art Freeman DO Work Phone: [facility] [employer] Jsnvar41-14-0954 09:29-0400Heart rate 90 /minMicfelicia Freeman DO Work Phone: [facility] [employer] Efskeo65-27-5079 09:29-3352MrF1% (BldA) [Mass fraction]95 %Art Freeman DO Work Phone: [facility] [employer] Fobmtj99-75-5774 09:29-0400Systolic blood htwvlzun224 mm[Hg]Art Freeman DO Work Phone: [facility] [employer] Gsfuzc73-63-0936 14:12-0400Body lijfxj442 cmMicfelicia Freeman DO Work Phone: [facility]06-05-2025 14:12-0400Body mass index (BMI) [Ratio]38.05 kg/y1YgqgfvhArt Freeman DO Work Phone: [facility]06-05-2025 14:12-0400Body ldlrdhobiyi95.1 [degF]Art Freeman DO Work Phone: [facility]06-05-2025 14:12-0400Body .21 kgArt Freeman DO Work Phone: [facility]06-05-2025 14:12-0400Diastolic blood xukszsgu81 mm[Hg]Art Freeman DO Work Phone: [facility]06-05-2025 14:12-0400Heart rate 95 /minMicfelicia Freeman DO Work Phone: [facility]06-05-2025 14:12-5738BuQ3% (BldA) [Mass fraction]96 %Art Freeman DO Work Phone: [facility]06-05-2025 14:12-0400Systolic blood mm[Hg]Art Freeman DO Work Phone: [facility]06-03-2025 09:00-0400Body gghduhvqssf65.7 [degF]Sherri Garcia INTERVENTIONAL RADIOLOGY RN-INSURANCE EXAMINER Work Phone: [facility]06-03-2025 09:00-0400Diastolic blood ycosngal02 mm[Hg]Sherri Garcia INTERVENTIONAL RADIOLOGY RN-INSURANCE EXAMINER Work Phone: [facility]06-03-2025 09:00-0400Heart rate 97 /minSherri Kaitlynn BURNS-INSURANCE EXAMINER Work Phone: [facility]06-03-2025 09:00-0400 Respiratory rate16 /minSherri Kaitlynn INTERVENTIONAL RADIOLOGY RN-INSURANCE EXAMINER Work Phone: [facility]06-03-2025 09:00-0400Systolic blood rshqkncu265 mm[Hg]Sherri Garcia GRANT-INSURANCE EXAMINER Work Phone: [facility]05-21-2025 10:36-0400Body slrrytgxyzj48.5 [degF]Sherri Garcia INTERVENTIONAL RADIOLOGY RN-INSURANCE EXAMINER Work Phone: [facility]05-21-2025 10:36-0400Diastolic blood bohtpywq19 mm[Hg]Sherri Garcia INTERVENTIONAL RADIOLOGY RN-INSURANCE EXAMINER Work Phone: [phone]05-21-2025 10:36-0400Heart rate 100 /minSherri Garcia INTERVENTIONAL RADIOLOGY RN-INSURANCE EXAMINER Work Phone: [phone]05-21-2025 10:36-0400 Respiratory rate16 /minSherri Garcia INTERVENTIONAL RADIOLOGY RN-INSURANCE EXAMINER Work Phone: [phone] [place], [place] 6873405-21-2025 10:36-0400Systolic blood lxvrfgyf233 mm[Hg]Sherri Garcia INTERVENTIONAL RADIOLOGY RN-INSURANCE EXAMINER Work Phone: [phone]05-07-2025 10:56-0400Body jrfxgrudklz44.7 [degF]Sherri Garcia INTERVENTIONAL RADIOLOGY RN-INSURANCE EXAMINER Work Phone: [phone]05-07-2025 10:56-0400Diastolic blood looxyutc36 mm[Hg]Sherri Garcia INTERVENTIONAL RADIOLOGY RN-INSURANCE EXAMINER Work Phone: [phone]05-07-2025 10:56-0400Heart rate 94 /minSherri Garcia INTERVENTIONAL RADIOLOGY RN-INSURANCE EXAMINER Work Phone: [phone]05-07-2025 10:56-0400 Respiratory rate16 /Montserrat Garcia INTERVENTIONAL RADIOLOGY RN-INSURANCE EXAMINER Work Phone: [phone]05-07-2025 10:56-0400Systolic blood cwyyuzmb547 mm[Hg]Sherri Garcia INTERVENTIONAL RADIOLOGY RN-INSURANCE EXAMINER Work Phone: [phone]12-03-2024 08:45-0500Body dkpgko220.8 Randall Price MD Work Phone: [facility]12-03-2024 08:45-0500Body mass index (BMI) [Ratio]36.73 kg/t7QvvjyspDavida Price MD Work Phone: [facility]12-03-2024 08:45-0500Body temperature 98.29 [degF]Davida Price MD Work Phone: [facility]12-03-2024 08:45-0500Body dudajn820.12 kgDavida Price MD Work Phone: [facility]12-03-2024 08:45-0500Diastolic blood laaewoub77 mm[Hg]Davida Price MD Work Phone: [facility]12-03-2024 08:45-0500Heart uvju351 /minDavida Price MD Work Phone: [facility]12-03-2024 08:45-7620EeF9% (BldA) [Mass fraction]96 %Davida Price MD Work Phone: [facility]12-03-2024 08:45-0500Systolic blood eijbjfjg547 mm[Hg]Davida Price MD Work Phone: [facility]06-18-2024 14:19-0400Body cdowjp397.8 cmLisa Aichholz Work Phone: [facility]06-18-2024 14:19-0400 Body mass index (BMI) [Ratio]38.4 kg/m2Lisa Aichholz Work Phone: [facility]06-18-2024 14:19-0400 Body yzvovh119.56 kgLisa Aichholz Work Phone: [facility]03-14-2024 14:52-0400 Diastolic blood mm[Hg]Cheng Aichholz Work Phone: [facility]03-14-2024 14:52-0400 Heart rate88 /minLisa Aichholz Work Phone: [facility]03-14-2024 14:52-0400 Respiratory rate16 /minLisa Aichholz Work Phone: [facility]03-14-2024 14:52-0400 SaO2% (BldA) [Mass fraction]98 %Cheng Aichholz Work Phone: [phone]-[facility]03-14-2024 14:52-0400 Systolic blood zpjoxagd021 mm[Hg]Cheng Aichholz Work Phone: [phone]03-14-2024 12:58-0400 Body yjlpkz234.8 cmLisa Aichholz Work Phone: [phone]03-14-2024 12:58-0400 Body arabcd910.02 kgLisa Aichholz Work Phone: [phone]02-16-2024 11:03-0500 Body zdrwmy863.02 kgLisa Aichholz Work Phone: [phone]02-16-2024 11:03-0500 Diastolic blood tvattobp96 mm[Hg]Cheng Aichholz Work Phone: [phone]02-16-2024 11:03-0500 Heart rate95 /minLisa Aichholz Work Phone: [phone] [place], [place] 9459502-16-2024 11:03-0500 Systolic blood tenehdrg843 mm[Hg]Cheng Aichholz Work Phone: [facility]12-18-2023 15:00-0500 Body pxahkx004.8 cmTondra Mapus Other [facility]12-18-2023 15:00-0500 Body mass index (BMI) [Ratio]36.94 kg/q7Dyjxxu Mapus Other [place] [employer] Other 12-18-2023 15:00-0500Body .8 kgTondra Mapus Other [facility]12-18-2023 15:00-0500 Diastolic blood euygrsrr74 mm[Hg]Tondra Mapus Other [facility]12-18-2023 15:00-0500 Respiratory rate18 /minTondra Mapus Other [facility] [employer] Other 12-18-2023 15:00-2850GyD3% (BldA) [Mass fraction]95 % Tondra Mapus Other [facility] [employer] Other 12-18-2023 15:00-0500Systolic blood lspvqnuq055 mm[Hg] Tondra Mapus Other [facility]10-04-2023 10:00-0400 Body rfpisf746.8 cmRjannet Scovanner Other [employer] Other 10-04-2023 10:00-0400Body mass index (BMI) [Ratio] 35.97 kg/m2Ryan Scovanner Other [employer] Other 10-04-2023 10:00-0400Body yeforl351.72 kgRyan Scovanner Other [employer] Other 10-04-2023 10:00-0400Diastolic blood wzynwibf64 mm[Hg] Maxi Scovanner Other [employer] Other 10-04-2023 10:00-0400Systolic blood nxhnnlow891 mm[Hg] Maxi Scovanner Other [employer] Other 04-04-2023 11:00-0400Body pgqcuo825.8 cmCamerpierre Fernandez Other [employer] Other 04-04-2023 11:00-0400Body mass index (BMI) [Ratio] 34.43 kg/m3Gbirplu Ditty Other [employer] Other 04-04-2023 11:00-0400Body rpvige117.86 kgCameron Ditty Other [employer] Other 04-04-2023 11:00-0400Diastolic blood zcbiceqn06 mm[Hg] Amor Ditty Other [employer] Other 04-04-2023 11:00-0400Systolic blood scoaeiat955 mm[Hg] Amor Ditty Other [employer] Other 10-04-2022 11:00-0400Body rtiwra713.8 cmCameron Ditty Other [employer] Other 10-04-2022 11:00-0400Body mass index (BMI) [Ratio] 34.15 kg/e9Etctapj Ditty Other [employer] Other 10-04-2022 11:00-0400Body .96 kgCameron Ditty Other [employer] Other 10-04-2022 11:00-0400Diastolic blood aviztmqi29 mm[Hg] Amor Ditty Other [employer] Other 10-04-2022 11:00-0400Systolic blood vflwlgse336 mm[Hg] Amor Ditty Other [employer] Other 03-18-2021 13:44-0400Body Jsdftwtymnn16.9 [degF] [facility] HospitalKkhjrEymzTeuynx43-81-5780 13:44-0400BP Cnguiychd18 mm[Hg][facility]03-18-2021 13:44-0400BP Wornkuey149 mm[Hg][facility] 02-06-2021 13:44-0400Pulse (Heart Rate)129 /minSentara [facility] Regional HospitalGnpzvBvgmMbazen54-93-5479 13:44-0400Pulse Kwczwklc24 %[facility] HospitalPewqsVbmqPiwcez88-81-3811 13:44-0400 Respiratory Rate16 /[facility]02-18-2021 14:15-0500Body Hxfbujxvtqx46.2 [degF][facility] HospitalZbgbaAkmuTvzlvm93-46-0254 14:15-0500BP Jtewykxzv57 mm[Hg][facility] HospitalKgpfkKpweUqdfcf93-49-5183 14:15-0500BP Lqfxkpwk55 mm[Hg][facility] HospitalVpogyQplxKdbmib60-61-4917 14:15-0500Pulse (Heart Rate)106 /[facility]02-18-2021 14:15-0500Pulse Enshgnjj04 %[facility] 01-09-2021 14:15-0500Respiratory Rate12 /[facility]02-05-2021 10:35-0500Body Wnqaheqowxh99.1 [degF][facility] HospitalQlkkctWrcgFcxzpz95-06-0873 10:35-0500 BP Rfxswcytm45 mm[Hg][facility] HospitalIctozrUlreGvmwnz88-19-0465 10:35-0500BP Awhmihll429 mm[Hg][facility] HospitalSotzyvSqdbUgtgns05-75-4598 10:35-0500Pulse (Heart Rate)108 /[facility] HealthcareQjhsrjBrzdQtfaol83-65-5663 10:35-0500Pulse Jdihsumr73 %[facility] 12-27-2020 10:35-0500Respiratory Rate18 /[facility] HealthcareTymtzhWogiTajilz75-03-6006 14:09-0500Body Aikuvezscfc77.81 [degF][facility] HospitalGmsmuUpkkLcyefs41-70-7683 14:09-0500BP Zgxtkener60 mm[Hg][facility] HospitalOqabqJsvzNnkzxm37-39-3031 14:09-0500BP Fkypmsqe299 mm[Hg][facility] HospitalAnqczDtwcWypxvd33-24-3729 14:09-0500Pulse (Heart Rate) 101 /minSentara Halifax Regional HospitalXgmxeZiysJlsbhe87-91-6314 14:09-0500Pulse Cpfmzvow13 %[facility] HospitalScqaiUfvqHdouoq73-27-6264 14:09-0500Respiratory Rate18 /[facility]12-[facility]-2020 11:38-0500Body Lbbrywhdqmr70.01 [degF][facility]12-31-2020 11:38-0500BP Eslcbvisg36 mm[Hg][facility]12-31-2020 11:38-0500BP Jejxuoxb386 mm[Hg][facility]12-31-2020 11:38-0500Pulse (Heart Rate)96 [facility] 11:38-0500Pulse Mgljuvhi16 %[place] [address]-31-2020 11:38-0500Respiratory Rate18 /[facility]12-28-2020 11:38-0500BMI (Body Mass Index)33.21 kg/q2MkxbdghSurgical [facility]ty [facility]12-28-2020 11:38-0500Body kgS[facility]12-28-2020 11:38-9880Tvhapy959.8 cm [facility] Encounters Encounter DateEncounter TypeCare ProviderFacilityStart: 09-21-2025 End: 31-74-6474Gqwuin outpatient visit 15 minutesMicfelicia Freeman DO Work Phone: [facility] MedicineComment on above: Gastroesophageal reflux disease, unspecified whether esophagitis present (Primary Dx); Type 2 diabetes mellitus with foot ulcer, with long-term current use of insulin ([facility]); Benign essential HTN; Chronic midline low back pain without sciatica; Mixed hyperlipidemia due to type 2 diabetes mellitus (CMS-HCC)Start: 09-21-2025 End: 58-80-5107uqyrkdnupjVXHLSOV D [facility] Ambulatory PPGStart: 09-12-2025 End: 46-33-7557asqfdflpbaEyynJeovany BRITO Work Phone: [phone]-[facility] Vascular SurgStart: 09-12-2025 End: 38-62-4878Oacdlgu encounter procedureChan Quintanilla MD-[facility] Vascular Surg Work Phone: Start: 08-30-2025 End: 80-39-7218Gorkozbkx encounterCat[facility] - Pharmacy Medication ManagementStart: 08-27-2025 End: 62-04-6498Muxevekfy encounterArt Freeman DO Work Phone: [facility] Physicians Family MedicineStart: 08-24-2025 End: 51-84-6550Xssjpuczr encounterEv Marquez [facility] Family MedicineStart: 08-22-2025 End: 34-37-3319Tofmnsi encounter procedureCathy Leggett APRN-CT [facility] [place] Work Phone: Start: 08-22-2025 End: 49-56-0080tjjhfoawxaYsubJeovany BRITO Work Phone: [facility] Work Phone: Start: 08-16-2025 End: 46-86-0192Qcdbaktdm encounterEv Marquez CMACentral [facility] Medical CenterMedica Physicians Family MedicineStart: 08-13-2025 End: 01-00-7407fdcokyoqhdYQUECHY D BADIKFairfield Medical CenterComment on above: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 ([facility]) [E11.628, L84] (Primary Dx)Start: 08-10-2025 End: 37-31-1515Flqvde outpatient visit 25 minutesMicfelicia Freeman DO Work Phone: [facility] Physicians Family MedicineComment on above: Type 2 diabetes mellitus with other circulatory complication, with long-term current use of insulin([facility]) (Primary Dx); Type 2 diabetes mellitus with foot ulcer, with long-term current use of insulin ([facility]); Benign essential HTN; Mixed hyperlipidemia due to type 2 diabetes mellitus ([facility]) ; Gastroesophageal reflux disease, unspecified whether esophagitis present; Chronic midline low back pain without sciatica; Ulcer of right foot with fat layer exposed ([facility])Start: 08-10-2025 End: 38-70-1259ibjgbdrfucYZMAWSF D BADMercy Health [facility] Ambulatory PPGStart: 07-17-2025 End: 89-43-4215xossbvuchuCtaveanqq Pharmacy Medication Management Work Phone: [facility] - Pharmacy Medication ManagementStart: 07-17-2025 End: 89-37-6602Eetxjy-up encounterAvera St. Benedict Health Centerdaryn Freeman Work Phone: [facility] Physicians Family MedicineComment on above: Lipid panelStart: 07-16-2025 End: 69-91-2420Yauuvner Support[address] - Pharmacy Medication ManagementComment on above:Type 2 diabetes mellitus with other circulatory complication, with long-term current use of insulin([facility]) (Primary Dx)Start: 59-59-8438Bgo-patient / Non-visitMabashir Quintanilla MD- [facility] Vascular Surg Work Phone: Start: 07-09-2025 End: 69-20-0450Wektcnwgt to same day surgery centerMabashir Quintanilla MD- Interventional Radiology Work Phone: Start: 07-09-2025 End: 70-53-0140jyvrmvbzaoTovb J Aichholz Work Phone: [facility] Work Phone: Start: 07-05-2025 End: 07-41-0985Kivifwjhd encounterProhighlands medical center Pharmacy Medication Management Work Phone: [facility] - Pharmacy Medication ManagementComment on above:Type 2 diabetes mellitus with foot ulcer, with long- term current use of insulin ([facility])Start: 07-05-2025 End: 53-80-5100Yqlgupmssqkw care manage srvc 14 day dischargeArt Freeman DO Work Phone: [facility]abel[facility] Say Family MedicineComment on above: Ulcer of right foot with fat layer exposed ([facility]) (Primary Dx); Type 2 diabetes mellitus with foot ulcer, with long-term current use of insulin ([facility]); Hyperlipidemia, unspecified hyperlipidemia type; Gastroesophageal reflux disease, unspecified whether esophagitis present; Peripheral artery diseaseStart: 07-05-2025 End: 43-03-0215swhbbadpsnFHDSAPO D [facility] Ambulatory PPGStart: 06-28-2025 End: 52-05-3577Jsityes encounter procedureMabashir Quintanilla MD-Ul[facility] VascularStart: 06-28-2025 End: 90-76-0878lvttoscrtbYwvh J Aichholz Work Phone: [facility] Work Phone: Start: 06-28-2025 End: 75-87-1948soxylqrxmnNsyr J Aicjesi Work Phone: [facility] Work Phone: Start: 06-28-2025 End: 33-04-2373Tefvpzt encounter procedureCathy Ramirez APRFormerly [facility] V[facility] Surg Work Phone: Start: 06-07-2025 End: 93-35-1315ipcpzkzcayJCFBAHXH L [facility]art: 05-22-2025 End: 55-21-4540Ennegdgqr encounterSstacy Deal Family MedicineComment on above:ResultsStart: 05-16-2025 End: 68-24-0616Biywjp OnlyArt Freeman DO Work Phone: [facility] MedicineComment on above: Type 2 diabetes mellitus with foot ulcer, with long-term current use of insulin ([facility]) (Primary Dx)Start: 05-13-2025 End: 71-96-7021ZosnpeNkzbegm D Badik DO Work Phone: [facility] Physicians Family MedicineComment on above: Type 2 diabetes mellitus with foot ulcer, with long-term current use of insulin ([facility])Start: 05-10-2025 End: 80-20-0388Aeuoui outpatient visit 25 minutesArt Freeman DO Work Phone: [facility] Physicians Family MedicineComment on above: Type 2 diabetes mellitus with foot ulcer, with long-term current use of insulin ([facility]); Benign essential HTN; Gastroesophageal reflux disease, unspecified whether esophagitis present; Chronic midline low back pain without sciatica; Encounter for screening for malignant neoplasm of prostate; Fatigue, unspecified typeStart: 05-10-2025 End: 26-84-7852yqotphsaceGLYQSHGSwedish Medical Center [facility] Ambulatory PPGStart: 05-02-2025 End: 77-75-2933znovbeyeoqSRIXNVYEvergreenHealth HospitalStart: 04-26-2025 End: 64-24-5971Iftbuz outpatient new 45 minutesArt Freeman DO Work Phone: [facility] Physicians Family MedicineComment on above: Benign essential HTN (Primary Dx); Type 2 diabetes mellitus with foot ulcer, with long-term current use of insulin ([facility]); Chronic midline low back pain without sciatica; Fatty liver disease, nonalcoholic; Visit for wound check; Hyperglycemia; Gastroesophageal reflux disease, unspecified whether esophagitis presentStart: 04-26-2025 End: 76-61-0745xjenwlxbvmKJDOUVPSwedish Medical Center [facility] Ambulatory PPGStart: 04-24-2025 End: 99-37-3389mulofpkenkECTR P CHENEYMetroHealth [facility] HospitalStart: 04-24-2025 End: 84-93-2151Adjnavc encounter procedureSherri Garcia INTERVENTIONAL RADIOLOGY RN-INSURANCE EXAMINER Work Phone: [facility] - Wound Care ClinicComment on above:Diabetic ulcer of right midfoot associated with type 2 diabetes mellitus, with muscle involvement without evidence of necrosis ([facility]) (Primary Dx); 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 ([facility]-HCC)Start: 04-20-2025 End: 63-86-4966foxedkfqllPjcvjv D Grubic DO Work Phone: sP[facility]er Memorial Hospitaltart: 04-18-2025 End: 35-89-2875Yxbojtfue encounterJerome Del Toro DO Work Phone: General SurgeryComment on above:Care Coordination (Appeal for GPOEM denial )Start: 04-11-2025 End: 54-64-0818Aynywvr encounter Vipul Garcia INTERVENTIONAL RADIOLOGY RN-INSURANCE EXAMINER Work Phone: [facility] - Wound Care ClinicComment on above:Diabetic ulcer of right midfoot associated with type 2 diabetes mellitus, with muscle involvement without evidence of necrosis (CMS- HCC) (Primary Dx); History of transmetatarsal amputation of right foot (CMS-HCC); 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); Wound, open, foot with complication, left, initial encounter; Unstable ankle, rightStart: 04-11-2025 End: 22-36-0398albliymoviXYIU P CHENEYMetroHealth [facility] HospitalStart: 04-10-2025 End: 93-61-1535hcpjctfhrxVPOUJXS S CLINEFacility:[facility] HospitalStart: 04-10-2025 End: 74-41-1543yxgibbchgnBUOVLW D GRUBICFacility:[facility] HospitalStart: 04-05-2025 End: 69-90-0588Iwpepqgjr encounterMicfelicia S Figueredo DO Work Phone: GastroenterologyComment on above:Care Coordination (Gastroparesis clinic: chart review; new patient call )Start: 03-28-2025 End: 85-39-8347Yylihz outpatient new 20 minutesSherri Garcia INTERVENTIONAL RADIOLOGY RN-INSURANCE EXAMINER Work Phone: [facility] - Wound Care ClinicComment on above:Diabetic ulcer of right midfoot associated with type 2 diabetes mellitus, with muscle involvement without evidence of necrosis (CMS- HCC) (Primary Dx); History of transmetatarsal amputation of right foot (CMS-HCC); Visit for wound checkStart: 03-28-2025 End: 53-29-1401qirtjyzfrwONQW P CHENEYMetroHealth [facility] HospitalStart: 03-04-2025 End: 02-28-5737Wpjjcvyfs department patient visitNO PCP NO PCPProMercy Health [facility] HospitalStart: 11-21-2024 End: 51-02-1366Wawwlujta encounterDavida Price MD Work Phone: GastroenterologyComment on above:[employer]qu[employer]orer - Other (Dr Yoon's office/request for office note)Start: 10-24-2024 End: 18-67-8697Fpoupzn encounter procedureDavida Price MD Work Phone: GastroenterologyComment on above:Gastroparesis (Primary Dx)Start: 10-24-2024 End: 00-56-2971daficjvvomOTGXQBO LEMBOFacility:[facility] Hospitaltart: 49-11-8667Gugwxvovl encounterMicfelicia Figueredo DO Work Phone: GastroenterologyStart: 06-12-2024 End: 45-34-5049ikqlwlxtrvWkww J Aichholz Work Phone: [facility] Work Phone: Start: 06-12-2024 End: 12-60-9359Jkcnzkt encounter procedureLisa Aichholz Work Phone: [facility]-Nuc [facility] Work Phone: Start: 06-06-2024 End: 57-62-9665vjovdrowieVaov J Aichholz Work Phone: [facility] Work Phone: Start: 06-06-2024 End: 60-87-9398Glgqkka encounter procedureLisa Aichholz Work Phone: [facility]-Nuc [facility] Work Phone: Start: 05-09-2024 End: 52-57-2261Ntmszol encounter procedureLisa Aichholz Work Phone: [facility] Gastroenterology Work Phone: Start: 03-13-2024 End: 26-96-7809igetfyzgmmETRP AICHHOLZNot AvailableStart: 96-74-4905Tzs-patient / Non-visitLisa Aichholz Work Phone: [facility] Gastroenterology Work Phone: Start: 02-03-2024 End: 66-58-8899Otdfvglto to same day surgery centerLisa Aichholz Work Phone: [facility] Ctr-Digestive Health Work Phone: Start: 02-03-2024 End: 40-96-0995jexcelofmzMqlr J Aichholz Work Phone: [facility] Work Phone: Start: 01-07-2024 End: 54-04-0967Vhdtmcr encounter procedureLisa Aichholz Work Phone: [facility] Gastroenterology Work Phone: Start: 01-06-2024 End: 07-15-9439mcfwrdpsreXTEJ AICHHOLZNot AvailableStart: 77-04-6217Kdcwhk flowsheetLisa Aichholz FLY FINISHER Work Phone: [facility] FMStart: 59-57-0595Mtonne flowsheetLisa Aichholz FLY FINISHER Work Phone: [facility] FMStart: 11-25-2023 End: 55-15-1227jqptavgfajUxfa Scovanner Other Nort [employer] Other Start: 00-42-3479Gxpsjk outpatient visit 15 minutes Maxi Huber GastroenterologyStart: 79-55-3928Stjgtpw encounter procedure Cheng Bel Work Phone: [facility]-Start: 11-09-2023 End: 04-08-4942yqffedvqsvGcsiuz Mapus Other [facility] [employer] Other Start: 74-49-4253Ucoisrzau encounterTondra Tyrell Zazueta Freeman [facility] ClinicStart: 11-08-2023 End: 20-81-8954Ltaemnjwsf RecurringLisa Calixtohholnia Work Phone: [facility] Work Phone: Start: 11-08-2023 End: 88-27-5625wcamqjukrmYzlw J Aichjesi Work Phone: [facility] [employer] Other Start: 75-37-7638SKLK visit new patientSebastián KruseGeorge C. Grape Community Hospital ClinicStart: 11-08-2023 End: 31-12-1716Vwzszlj encounter procedureLisa Calixtohjesi Work Phone: [facility] Work Phone: Start: 11-02-2023 End: 63-74-7645zdzzcznqayPPYE CALIXTOHHOLZNot AvailableStart: 09-15-2023 End: 81-90-6306keaikfxvujKcxv Fitt Other [facility] [employer] Other Start: 76-08-2195Mufyqjndu encounterDawn [facility] ClinicStart: 09-13-2023 End: 58-79-0695rnofqdrbirAtqi Fitt Other noTransEnergy [employer] Other Start: 78-66-7804Dxcapnqyj encounterDawn [facility] Centertart: 08-25-2023 End: 10-60-4295skafnkbizkClws Scovanner Other noTransEnergy [employer] Other Start: 84-83-6804Yelqzz outpatient visit 15 minutes Maxi CroftG GastroenterologyStart: 03-18-2023 End: 01-06-9105hhpwqxfmeoMCNKGZKU TROTTIFacility:N3Vdwxh: 02-23-2023 End: 00-33-9639iowemqwspdYpwiqxg Ditty Other [facility] [employer] Other Start: 41-25-5494Kwbajxa encounter procedureCamamaury AdamsyERNESTOG GastroenterologyStart: 08-25-2022 End: 37-88-3070tbvefqrmbfUsawipg Ditty Other noTransEnergy [employer] Other Start: 47-11-4278Wrgajva encounter procedureCameroesdras CarterG GastroenterologyStart: 04-02-2021 End: 56-83-0428eklsvvvnrzZTMVCFCXMX W [facility]INRogerMemorial Health System Start: 02-06-2021 End: 87-45-2420Qnvxxnb encounter procedureUCHENNA MARTINTUS [facility]ulltart: 02-06-2021 End: 15-06-4754Hcnljhk encounter procedureUchjenna Bell Work Phone: [facility] Wound CareComment on above:Foot abscess, left (Primary Dx)Start: 01-29-2021 End: 94-92-6787Stvujs OnlyTsering Silvestre Work Phone: [facility] Start: 01-24-2021 End: 78-59-7438Svkwrof [facility] procedure[facility] Start: 01-24-2021 End: 90-12-9432Gykldiw encounter procedureRichland Centerr Work Phone: [facility] Wound CareComment on above:Foot abscess, left (Primary Dx); Charcot foot due to diabetes mellitus (HCC); MSSA (methicillin susceptible Staphylococcus aureus) infectionStart: 01-24-2021 End: 57-08-5616Hddkza outpatient visit 15 fredyStephanierachana Millicent Cherry Work Phone: [phone] [place] [address] Wound CareComment on above:Subacute osteomyelitis of left foot (HCC) (Primary Dx)Start: 01-09-2021 End: 84-98-0563Tqkumyj encounter procedureSouthern [facility] Start: 01-09-2021 End: 99-25-3222Ijpgkyoezb hospital visit by physicianMarietta Memorial Hospitalusman Polo Work Phone: [phone] [place] [address] DiagnosticsComment on above:Arrived Start: 01-09-2021 End: 78-34-1602Lkcjfz outpatient visit 25 minutesMarietta Memorial Hospitalusman Dilip Work Phone: [phone] [place] [address] Wound CareComment on above: Charcot's joint of ankle, unspecified laterality (Primary Dx)Start: 01-09-2021 End: 99-33-4918Snpopoj encounter procedureUchjenna Escobar Ezarline Work Phone: [phone] [place] [address] Wound CareComment on above:Subacute osteomyelitis of left foot (HCC) (Primary Dx)Start: 12-27-2020 End: 48-24-3975Kepmgya encounter [facility] Start: 12-27-2020 End: 73-15-1950Heozvs outpatient visit 15 [facility] Hospitalusman ReeceDilip Work Phone: [phone] [place] [address] Wound CareComment on above:Subacute osteomyelitis of left foot (HCC) (Primary Dx); Charcot's joint of ankle, unspecified lateralityStart: 12-19-2020 End: 03-11-1481Mthpzys encounter procedureUCHENNA MICHELLE BELLAvita Health System Galion Hospitaltart: 12-19-2020 End: 30-95-4276Wchcepm encounter procedureUchjenna Escobar Ezike Work Phone: [place] [address] Wound CareComment on above:Subacute osteomyelitis of left foot (HCC) (Primary Dx)Start: 11-20-2020 End: 54-33-1484Iucxercfhijxo procedureCathy J CatronOhioHealthStart: 11-20-2020 Patient encounter procedureCATHY J CATRONHomeHealthStart: 11-05-2020 End: 57-92-1108Ffshcghwhx and management of inpatientPROVIDER NOT IN SYSTEM [facility] Hospitaltart: 11-05-2020 End: 53-99-1062Ksckjlubrk and management of inpatientGeneric [facility] Work Phone: [facility] Surgical IntermediateComment on above:Other acute osteomyelitis of left foot (HCC) (Primary Dx); Uncontrolled type 2 diabetes mellitus with peripheral neuropathy (HCC); Secondary DM with DKA (HCC); 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, with long- term current use ofinsulin, macular edema presence unspecified, unspecified proliferative retinopathy type (HCC)Start: 12-26-2018 End: 37-68-4727Eqmowbu encounter procedureJOHN Y JUNFacility:[facility] Procedures DateProcedureProcedure DetailPerforming ClinicianStart: 11-20-3088Fxxrzyerjb glycosylated h5yZrguolhArt Freeman DO Work Phone: Start: 66-51-1388Rvrox depression screening assessment Art Freeman DO Work Phone: Start: 64-73-1941OH angiography of headLisa Bel FLY FINISHER-C Work Phone: Start: 62-77-8644ID angiography of neck vesselsLisa Bel FLY FINISHER-C Work Phone: Start: 25-04-8256Gzsmk depression screening assessment Art Freeman DO Work Phone: Start: 36-67-0490HQ Angiogram w/TLA/Stent Right Leg (Right)Cheng Bel Work Phone: Start: 93-36-1730Dyzxn depression screening assessment [facility] Work Phone: [phone]: 14-61-1478Rrhalx-up visitFollow-upMICHAEDaryn FREEMANStart: 05-23-7754Cpvle depression screening assessmentArt Freeman DO Work Phone: Start: 96-71-0743Gibta depression screening assessment Art Freeman DO Work Phone: Start: 54-09-1457NWLHCIK COMMUNICATIONSherri Garcia APRN-INSURANCE EXAMINER Work Phone: Start: 72-47-8243Bnppc immobilization, pressure, and attention to woundMary P Kaitlynn INTERVENTIONAL RADIOLOGY RN-INSURANCE EXAMINER Work Phone: Start: 20-89-9980FGAEDZQ COMMUNICATIONMary P Kaitlynn INTERVENTIONAL RADIOLOGY RN-INSURANCE EXAMINER Work Phone: Start: 20-93-9735Tushg immobilization, pressure, and attention to woundMary P Kaitlynn INTERVENTIONAL RADIOLOGY RN-INSURANCE EXAMINER Work Phone: Start: 89-21-2985Uqtnt immobilization, pressure, and attention to woundMary P Kaitlynn INTERVENTIONAL RADIOLOGY RN-INSURANCE EXAMINER Work Phone: Start: 35-80-4160Rqngazxomcmn gastric emptying study Cheng Bel Work Phone: Start: 81-18-2688Qbckanmv tomography of abdomen and pelvis with contrastLisa Deniseexcela westmoreland hospitalnia Work Phone: Start: 20-48-3559Jrtgd 1996 panel - Serum or Plasma Davida Price MD Work Phone: Start: 66-92-2780Ordpgthncmsr [Mass/volume] in Urine by Test stripSherri Kaitlynn CAIN-INSURANCE EXAMINER Work Phone: Start: 88-01-3153LdywmgbrtmwsoxyecrjbgurjuuNzjy Jeremienewark hospitalnia Work Phone: Start: 40-63-3124D-ray of left ankleDina Millicent Cherry Work Phone: start: 93-14-1186S-ray of left footDina Millicent Cherry Work Phone: start: 07-09-6603Ytkprix microbial cultureDina Millicent Cherry Work Phone: start: 88-44-3312Txznxsqc identified in Bone by Aerobe cultureDina Millicent Cherry Work Phone: start: 40-12-9842GBEPIPVgpx Millicent Cherry Work Phone: start: 77-35-7300Aiirytd [Mass/volume] in Bloodmed Mohamed Mosalem Work Phone: Start: 10-55-1870Uhviqej [Mass/volume] in Bloodmed Mohamed Mosalem Work Phone: Start: 04-30-1784Rvghskc [Mass/volume] in Bloodmed Mohamed Mosalem Work Phone: Start: 59-74-3278Vzodl metabolic 2000 panel - Serum or PlasmaBaArmorTextat [employer] Work Phone: Start: 12-07-4157Xjolaidn blood count (hemogram) panel - Blood by Automated countBaArmorTextat [employer] Work Phone: Start: 87-79-4430Jsskspkdj [Mass/volume] in Serum or PlasmaBatextPlus Work Phone: Start: 50-07-6914Nrstuti [Mass/volume] in Bloodmed Mohamed Mosalem Work Phone: Start: 03-49-0947Nzpzyvl [Mass/volume] in Bloodmed Mohamed Mosalem Work Phone: Start: 81-20-9328Itjgpmy [Mass/volume] in Bloodmed Mohamed Mosalem Work Phone: Start: 42-98-2672Fylropo [Mass/volume] in Blood Flako Pinedo Work Phone: Start: 06-72-5000Ogctz metabolic 2000 panel - Serum or PlasmaBahzat [employer] Work Phone: Start: 11-20-2020C reactive protein [Mass/volume] in Serum or PlasmaJeremiah José Work Phone: start: 03-00-4077Wfmxlklj blood count (hemogram) panel - Blood by Automated countSafer Minicabsat [employer] Work Phone: Start: 65-87-7286Svcidvogzxo sedimentation rate by Westergren methodJeremiah José Work Phone: start: 37-41-1889Siwxchckg [Mass/volume] in Serum or PlasmaBahzat [employer] Work Phone: Start: 24-67-5849Qfwowsd [Mass/volume] in Blood Flako Pinedo Work Phone: Start: 53-95-4216Jyxycoz [Mass/volume] in Blood Flako Pinedo Work Phone: Start: 59-44-6748Qmrqovz [Mass/volume] in Blood Flako Pinedo Work Phone: Start: 53-24-3347Uncibyy [Mass/volume] in Blood Flako Pinedo Work Phone: Start: 50-46-8513Wkofd metabolic 2000 panel - Serum or PlasmaSafer Minicabsat [employer] Work Phone: Start: 81-62-4640Lxdkxsnx blood count (hemogram) panel - Blood by Automated countBaobab Planet Work Phone: Start: 37-84-6349Bvjihicll [Mass/volume] in Serum or PlasmaBahzat [employer] Work Phone: Start: 54-10-3843Teoaxtz [Mass/volume] in Blood Flako Pinedo Work Phone: Start: 35-14-6500Wgncuvd [Mass/volume] in Blood Flako Pinedo Work Phone: Start: 41-21-0258Fzywokt [Mass/volume] in Blood Flako Pinedo Work Phone: Start: 72-87-7900Ewbnlkjgo on tissue specimenLeanne Cherry Work Phone: start: 07-58-4475Ljbbxujh identified in Bone by Aerobe Daniel Cherry Work Phone: [phone]-tart: 20-53-6816Xecwazoa identified in Unspecified specimen by Anaerobe Erinnadia Cherry Work Phone: [phone]-tart: 11-18-2020 End: 77-87-7976UXCOAMYP AND DRAINAGE FOOT/ANKLELeanne Cherry Work Phone: [phone]-tart: 71-56-7467Lqltdgi [Mass/volume] in Blood Flako Pinedo Work Phone: Start: 82-70-3678Luplj metabolic 2000 panel - Serum or PlasmaBaArmorTextat [employer] Work Phone: Start: 11-18-2020C reactive protein [Mass/volume] in Serum or PlasmaDina Millicent Cherry Work Phone: [phone]: 59-60-4434Iymtpfzb blood count (hemogram) panel - Blood by Automated countBatextPlus Work Phone: Start: 99-71-2756Xiuxgpujpex sedimentation rate by Westergren methodLeanne Cherry Work Phone: [phone]: 95-05-4654Cwqlgkcfz [Mass/volume] in Serum or PlasmaBaArmorTextat [employer] Work Phone: Start: 47-21-0129Pqlmteh [Mass/volume] in Blood Flako Pinedo Work Phone: Start: 09-35-9075mHKP in Blood by Coagulation assay Braeden Conte Work Phone: start: 69-89-9020Jwdelwk [Mass/volume] in Blood Flako Pinedo Work Phone: Start: 45-11-3227Uaalsra [Mass/volume] in Blood Flako Pinedo Work Phone: Start: 41-38-6966Hakdspu microbial cultureBraeden Conte Work Phone: start: 94-96-5056Negxgwl [Mass/volume] in Blood Flako Pinedo Work Phone: Start: 24-82-3548Qbiyx metabolic 2000 panel - Serum or PlasmaBahzat [employer] Work Phone: Start: 36-40-1458Esceukzg blood count with white cell differential, automatedBraeden Conte Work Phone: start: 47-37-0685Txfcdgqj blood count with white cell differential, manualBraeden Conte Work Phone: start: 41-04-5576Lgktnkbsf [Mass/volume] in Serum or PlasmaBahzat [employer] Work Phone: Start: 41-29-0448Zsomtxn [Mass/volume] in Blood Flako Pinedo Work Phone: Start: 67-57-5882Jhymilj [Mass/volume] in Blood Flako Pinedo Work Phone: Start: 17-63-7643Migrlww [Mass/volume] in Blood Flako Pinedo Work Phone: Start: 11-31-9788Ekkrmoj [Mass/volume] in Blood Flako Pinedo Work Phone: Start: 25-58-7264Krfum metabolic 2000 panel - Serum or PlasmaBahzat [employer] Work Phone: Start: 76-91-3941Eddqrauz blood count (hemogram) panel - Blood by Automated countBaArmorTextat [employer] Work Phone: Start: 91-07-0008Qjuedmatetu sedimentation rate by Westergren methodBraeden Conte Work Phone: start: 52-22-1902Rvhugvsbk [Mass/volume] in Serum or PlasmaBahzat [employer] Work Phone: Start: 50-89-3155Ezmvgyw [Mass/volume] in Blood Flako Pinedo Work Phone: Start: 91-05-3063Q-ray of left footBrian Nam Conte Work Phone: start: 24-23-8131Bufokqv [Mass/volume] in Blood Flako Pinedo Work Phone: Start: 16-51-5763Qqubmjm [Mass/volume] in Blood Flako Pinedo Work Phone: Start: 20-12-2919Yv abdomen & pelvis w/o contrast materialEncompass Health Rehabilitation Hospital Of Scottsdaleat [employer] Work Phone: Start: 52-21-9183Tniywui [Mass/volume] in Blood Flako Pinedo Work Phone: Start: 55-52-0175Htepq metabolic 2000 panel - Serum or PlasmaBaat [employer] Work Phone: Start: 00-74-1863Cvcbngpw blood count (hemogram) panel - Blood by Automated countCOMMUNICATIONS INFRASTRUCTURE INVESTMENTSat [employer] Work Phone: Start: 40-40-5722Kncxoalvl [Mass/volume] in Serum or PlasmaBahzat [employer] Work Phone: Start: 33-28-1462Quijfrp [Mass/volume] in Blood Flako Pinedo Work Phone: Start: 17-10-0495Ihzkelt [Mass/volume] in Blood Flako Pinedo Work Phone: Start: 56-88-5579Nnxdxyu [Mass/volume] in Blood Flako Pinedo Work Phone: Start: 08-83-3720Mnlrivv [Mass/volume] in Blood Flako Pinedo Work Phone: Start: 78-22-4778Dihzp metabolic 2000 panel - Serum or PlasmaBaat [employer] Work Phone: Start: 91-99-8766Ekdaliht blood count (hemogram) panel - Blood by Automated countBaobab Planet Work Phone: Start: 06-18-0283Tkgqvddrn [Mass/volume] in Serum or PlasmaBahzat [employer] Work Phone: Start: 74-05-7155Esaqvqs [Mass/volume] in Blood Flako Pinedo Work Phone: Start: 23-97-6767Chhicai [Mass/volume] in Blood Flako Pinedo Work Phone: Start: 46-82-2719Kltpmys ultrasonography of artery of lower [facility] Work Phone: start: 14-84-1035Wxumstp emptying imaging studyBatrihealth bethes[facility] [employer] Work Phone: Start: 11-41-8284Lmxqpcw [Mass/volume] in Blood Flako Pinedo Work Phone: Start: 89-92-1284Utsdgzd [Mass/volume] in Blood Flako Pinedo Work Phone: Start: 68-12-5875Israq metabolic 2000 panel - Serum or PlasmaBaat [employer] Work Phone: Start: 60-26-6278Avxpedsw blood count (hemogram) panel - Blood by Automated countBaobab Planet Work Phone: Start: 77-91-7441Nujazcjzo [Mass/volume] in Serum or PlasmaBaat [employer] Work Phone: Start: 04-05-2993Dpfzgco [Mass/volume] in Blood Flako Pinedo Work Phone: start: 10-04-0560Bitwfbt [Mass/volume] in Blood Flako Pinedo Work Phone: Start: 50-38-9607Ivmptxz [Mass/volume] in Blood Flako Pinedo Work Phone: Start: 55-71-2716OYJJO-19/INFLUENZA A,B MOLECULAR Bahzat Hugo Work Phone: Start: 40-13-4095Wvnilbt [Mass/volume] in Blood Flako Pinedo Work Phone: Start: 73-73-0933Zbgqk metabolic 2000 panel - Serum or PlasmaBaat [employer] Work Phone: Start: 06-38-7242Gocwnpcw blood count (hemogram) panel - Blood by Automated countBatrihealth bethesda [facility] hospital [employer] Work Phone: Start: 23-52-6365Uvhpxmbqu [Mass/volume] in Serum or PlasmaBahzat Hugo Work Phone: Start: 78-18-8176Wajtmbaup [Mass/volume] in Serum or PlasmaLisa Alicia Hamshire Work Phone: Start: 19-95-8312Fojnlxe [Mass/volume] in Blood Flako Pinedo Work Phone: Start: 51-26-5483Riobdxu [Mass/volume] in Blood Flako Pinedo Work Phone: Start: 70-82-1481Pdlyfzwf identified in Bone by Aerobe Daniel Cherry Work Phone: start: 07-11-1848Xirzwure identified in Unspecified specimen by Anaerobe Daniel Cherry Work Phone: start: 54-87-5518Fzsrhicva on tissue specimenDina Millicent Cherry Work Phone: start: 11-11-2020 End: 64-48-1125SHJGRUSHSJL WOUND VACDina Millicent Cherry Work Phone: start: 11-11-2020 End: 49-73-5891ILDULGMDAXP AND DRESSING CHANGEDina Millicent Cherry Work Phone: start: 87-03-8423Tyorcwd [Mass/volume] in Blood Flako Pinedo Work Phone: Start: 24-05-5283Qrcjphb [Mass/volume] in Blood Flako Pinedo Work Phone: Start: 78-66-6702Nqpzl metabolic 2000 panel - Serum or PlasmaBaArmorTextat [employer] Work Phone: Start: 18-41-4104Cqiwkhdp blood count (hemogram) panel - Blood by Automated countBaobab Planet Work Phone: Start: 57-82-4691Yhsiocrhw [Mass/volume] in Serum or PlasmaBahzat [employer] Work Phone: Start: 95-60-5416Fxrzemk [Mass/volume] in Blood Flako Pinedo Work Phone: Start: 57-59-2346Zjexnsv [Mass/volume] in Blood Flako Pinedo Work Phone: Start: 25-81-1313Yyxyekj [Mass/volume] in Blood Flako Pinedo Work Phone: Start: 90-10-7835Hdgjtws [Mass/volume] in Blood Flako Pinedo Work Phone: Start: 59-56-6050Sxazc metabolic 2000 panel - Serum or PlasmaBaArmorTextat [employer] Work Phone: Start: 59-45-3172Azwtccxd blood count (hemogram) panel - Blood by Automated countSafer Minicabsat [employer] Work Phone: Start: 68-24-3546Tvfevjkto [Mass/volume] in Serum or PlasmaBahzat [employer] Work Phone: Start: 2020 End: 63-46-2576Hyaqykv [Mass/volume] in BloodFlako Pinedo Work Phone: Start: 07-46-6960Whejpag [Mass/volume] in Blood Flako Pinedo Work Phone: Start: 11-09-2020 End: 67-62-0010Bhywgto [Mass/volume] in BloodFlako Pinedo Work Phone: Start: 64-16-7981Rpsrmye [Mass/volume] in Blood Flako Pinedo Work Phone: Start: 35-19-1767Pnuxgxm [Mass/volume] in Blood Flako Pinedo Work Phone: Start: 54-54-9999Nwkrpuu [Mass/volume] in Blood Flako Pinedo Work Phone: Start: 90-98-2548Hrpvz metabolic 2000 panel - Serum or PlasmaBahzat [employer] Work Phone: Start: 01-74-9938Laqiyzfu blood count (hemogram) panel - Blood by Automated countSafer Minicabsat [employer] Work Phone: Start: 55-68-7287Evemvtprr [Mass/volume] in Serum or PlasmaBahzat [employer] Work Phone: Start: 68-70-8415Ksxgmso [Mass/volume] in Blood Flako Pinedo Work Phone: Start: 47-24-0595Biwphai [Mass/volume] in Blood Flako Pinedo Work Phone: Start: 40-55-8506Yknxflq [Mass/volume] in Blood Flako Pinedo Work Phone: Start: 78-86-6428Xracqab [Mass/volume] in Blood Flako Pinedo Work Phone: Start: 06-95-8401Zpdmqqc [Mass/volume] in Blood Flako Pinedo Work Phone: Start: 25-41-3137Bwzkx metabolic 2000 panel - Serum or PlasmaAlaa AlaHeadspacead Work Phone: Start: 23-75-0085Ltperdo [Mass/volume] in Blood Flako Pinedo Work Phone: Start: 44-32-7994Cdqmyfs [Mass/volume] in Blood Flako Pinedo Work Phone: Start: 44-49-7685Wwsaopt microbial cultureGabriella Terrell Work Phone: Start: 71-14-3400Mzfffdu [Mass/volume] in Blood Flako Pinedo Work Phone: Start: 48-49-6076Nysraxsj blood count with white cell differential, automatedAlaa AlaHeadspacead Work Phone: Start: 96-57-7029Djdfqtmy blood count with white cell differential, manualAlaa AlaCursa.me Work Phone: Start: 11-04-1330Aadizsjw identified in Unspecified specimen by Aerobe cultureFlako Pinedo Work Phone: Start: 14-14-7910Dhqnojn [Mass/volume] in Blood Flako Pinedo Work Phone: Start: 63-14-6978Kfkmcyz [Mass/volume] in Blood Flako Pinedo Work Phone: Start: 00-19-7584Gfkvhev [Mass/volume] in Blood Flako Pinedo Work Phone: Start: 42-22-0500Rrsamyw [Mass/volume] in Blood Flako Pinedo Work Phone: Start: 11-06-2020 End: 00-21-5233Xus lower extrem oth/thn jt w/o & w/contr matrFlako Pinedo Work Phone: Start: 70-39-2300Wgsqipx [Mass/volume] in Blood Flako iPnedo Work Phone: Start: 91-54-4089Dpcfqmd/Creatinine [Ratio] in Urine Flako Pinedo Work Phone: Start: 38-99-6824LexggmepatTwpuycmd Viral Pinedo Work Phone: Start: 83-88-6245Rihiatt [Mass/volume] in Blood Flako Pinedo Work Phone: Start: 13-32-7179Ouolhxt microbial cultureBraeden Conte Work Phone: start: 11-06-2020 End: 03-08-0103G-ray of left footBraeden Conte Work Phone: start: 39-18-3978Yugslkcbxuui imaging procedure External TranscribedStart: 88-69-4451Idrnqjnhjcyy tomography, limited studies External TranscribedStart: 03-46-0692Tquwvrh [Mass/volume] in BloodFlako Pinedo Work Phone: Start: 74-91-7791Krcfopft blood count with white cell differential, automatedFlako Pinedo Work Phone: Start: 23-29-3251Fcvpnukr blood count with white cell differential, manualFlako Pinedo Work Phone: Start: 22-29-2353Yvwxtjk [Moles/volume] in Serum or PlasmaFlako Pinedo Work Phone: Start: 44-91-5335Blmoqcnio [Mass/volume] in Serum or PlasmaFlako Pinedo Work Phone: Start: 02-89-2664Csmha function 2000 panel - Serum or PlasmaFlako Pinedo Work Phone: Start: 37-99-9355Qeiqrzfdpjf [Units/volume] in Serum or Plasma by Detection limit <= 0.005 mIU/LKhalmarina Pinedo Work Phone: Start: 32-23-5712Jxcyv of lactateFlako Pinedo Work Phone: Start: 11-05-2020C>3< complement assayFlako Pinedo Work Phone: Start: 11-05-2020C>4< complement assayFlako Pinedo Work Phone: Start: 95-96-3535Kywwlgeg measurementFlako Pinedo Work Phone: Start: 28-97-6877Ejbcrmi [Moles/volume] in Serum or PlasmaFlako Pinedo Work Phone: Start: 11-05-2020 End: 85-20-5541Efjqgbxh identified in Blood by CultureFlako Pinedo Work Phone: Start: 18-56-2932Ldtirmwlos exam chest single view Flako Pinedo Work Phone: Start: 74-37-1162Nqam hydroxybutyrate [Moles/volume] in Serum or PlasmaFlako Pinedo Work Phone: Start: 11-05-2020C reactive protein [Mass/volume] in Serum or PlasmaFlako Pinedo Work Phone: Start: 06-18-9528Jdloznsf blood count with white cell differential, automatedFlako Pinedo Work Phone: Start: 35-65-1699Rzdqjezh blood count with white cell differential, manualFlako Pinedo Work Phone: Start: 64-01-3605Frzajywlqkaqi metabolic 2000 panel - Serum or PlasmaFlako Pinedo Work Phone: Start: 55-69-8827Htebqgbf kinase [Enzymatic activity/volume] in Serum or PlasmaFlako Pinedo Work Phone: Start: 82-79-8716Ziufbjaccjv sedimentation rate by Westergren methodFlako Pinedo Work Phone: Start: 71-07-4891Mukityzacp A1c/Hemoglobin.total in BloodFlako Pinedo Work Phone: Start: 97-34-2574Asupbatcb [Mass/volume] in Serum or PlasmaFlako Pinedo Work Phone: Start: 61-84-9841Itrafurlb [Mass/volume] in Serum or PlasmaFlako Pinedo Work Phone: Start: 70-16-8742Zalwfvizjcknb [Mass/volume] in Serum or PlasmaFlako Pinedo Work Phone: Start: 21-65-7940Ukdruzkc measurementFlako Pinedo Work Phone: Start: 58-61-1781Mwnyzhhqti examination and evaluation Generic [facility] Physicians Plan of Treatment DateCare ActivityDetailAuthorStart: 65-81-3362JUiM,Tdap and Td Vaccines (2 - Td or Tdap)DTaP,Tdap and Td Vaccines (2 - Td or Tdap)[facility] SystemStart: 69-92-6963Ypqjq microalbumin profileDTaP,Tdap,Td Vaccine (2 - Td or Tdap) [facility]ertart: 15-17-2271Sgova panelLipid ScreeningChildren'S Hospital Of Columbus Start: 08-23-3080Zunsxzhn ScreeningDiabetes ScreeningCleSelect Medical [facility] Hospital, Edwin Shawtart: 20-00-5587Yatsr BMI ScreeningAdult BMI ScreeningProUk Healthcare SystemStart: 69-29-8605Hbuwdlxeny ScreeningDepression ScreeningProUk Healthcare SystemStart: 50-22-5979Hjgtewd ScreeningTobacco ScreeningProUk Healthcare SystemStart: 65-52-5096Blokz BMI ScreeningAdult BMI ScreeningKindred Hospital Daytonca Health SystemStart: 40-96-9498Vbtrc BMI ScreeningAdult BMI ScreeningProPromedica Memorial Hospitalca Health SystemStart: 82-08-5275Khdrrabsnh ScreeningDepression ScreeningKindred Hospital Daytonca [facility] SystemStart: 36-31-0215Sotqrw Use: CardiovascularStatin Use: CardiovascularProMedica Health SystemStart: 51-40-3439Wgoydk Use: DiabeticStatin Use: DiabeticProPromedica Memorial Hospitalca [facility] SystemStart: 27-77-5471Fzzyxos ScreeningTobacco ScreeningKindred Hospital Daytonca [facility] Start: 20-56-6625Kibag BMI ScreeningAdult BMI ScreeningKindred Hospital Daytonca [facility] Start: 23-28-5273Ggbgg BMI ScreeningAdult BMI ScreeningKindred Hospital Daytonca [facility] Start: 47-48-0806Hvlxjfnrwm ScreeningDepression ScreeningKindred Hospital Daytonca [facility] Start: 49-83-0509Ykmizfp ScreeningTobacco ScreeningKindred Hospital Daytonca [facility] SystemStart: 45-00-8819Frcta BMI ScreeningAdult BMI ScreeningKindred Hospital Daytonca [facility] SystemStart: 45-36-9242Zqiyhggepd ScreeningDepression ScreeningKindred Hospital Daytonca [facility] SystemStart: 78-72-4633Dkjjvs Use: CardiovascularStatin Use: CardiovascularKindred Hospital Daytonca [facility] SystemStart: 99-20-4082Lbpdec Use: DiabeticStatin Use: DiabeticKindred Hospital Daytonca [facility] SystemStart: 10-26-0061Gnwkcez ScreeningTobacco ScreeningKindred Hospital Daytonca [facility] Start: 08-05-8905Lxeme BMI ScreeningAdult BMI ScreeningKindred Hospital Daytonca [facility] Start: 11-75-5879Umbqtmqivx ScreeningDepression ScreeningKindred Hospital Daytonca [facility] Start: 89-87-3474Unhjdts ScreeningTobacco ScreeningKindred Hospital Daytonca [facility] SystemStart: 29-05-2696Luaueaa ScreeningTobacco ScreeningKindred Hospital Daytonca [facility] SystemStart: 88-88-0765Ezbjpep ScreeningTobacco ScreeningKindred Hospital Daytonca [facility] SystemStart: 26-67-4014Ycuhi BMI ScreeningAdult BMI ScreeningCentral Vermont Medical CenterMedica [facility] Company SystemStart: 12-24-2025 End: 49-58-3075Uxvzpyxf Kklolwi5312/24/2025 11:00 AM EST Clinical Support [facility] [address] [facility] [place] [address] Art Freeman, DO [address] [facility], [address], [place] [address] Hayden Arguello MedicineStart: 57-04-6907Mcrjbfny screeningDiabetes: Retinopathy ScreeningRipley County Memorial HospitalStart: 09-21-2025 End: 02-16-9252Inosyhgb Odtsxft1309/21/2025 8:30 AM EDT Clinical Support [facility] [address] [place] [address] Art Freeman, DO [address] [facility], [facility], [place] [address] Hayden Arguello MedicineStart: 08-30-2025 End: 17-96-2121Cktpyqrx Gljilcj6808/30/2025 9:30 AM EDT Clinical Support [facility] Medication Management [address] [place] [address] FcvKaqwbdOhioHealth Riverside Methodist Hospital - Pharmacy Medication ManagementStart: 08-13-2025 End: 94-23-8548Vbbeanyb Ixdupcp5008/13/2025 8:00 AM EDT Clinical Support [facility] Medication Management [address] [place] [address] JxvBcqeuvOhioHealth Riverside [facility] Hospital - Pharmacy Medication ManagementStart: 08-10-2025 End: 34-70-2920Ehhwkqb encounter mgqvgbcva38/19/2025 10:00 AM EDT Office Visit [facility] [address] [facility] [address] [place], [place] [address] Art Freeman, DO [address] [facility], [address], [place] [address] Hayden Arguello MedicineStart: 71-04-4853JtcxczmlrParma Community General [facility] Start: 07-16-2025 End: 17-33-1622Ggtwaqsn Ysbqxmh0807/16/2025 8:00 AM EDT Clinical Support [facility] Medication Management [address] [place] [address] HskNmxdui [facility] Pharm[facility] Medication ManagementStart: 40-78-3782Yvozlroowk A1c qgwkehcpvwoGhL0J [facility]ertart: 07-09-2025 End: 13-56-0252VkzlvkuprMercy Health Clermont Hospitaltart: 05-22-2025 End: 66-47-5020Xzlvnltre to same day surgery ylwhhb3405/22/2025 2:[address] [facility] General Surgery [facility] [address] [place] [address] Jerome Del [place]o, [place] [address] 4wk post opGeneral Surgery Comment on above:4wk post opStart: 05-10-2025 End: 71-43-3001Bfydtiba Apipqza9605/10/2025 9:30 AM EDT Clinical Support [facility] [address] [place] [address] Art Freeman, DO [address] [facility], [facility] [address] [place], [place] [id number] [facility] MedicineStart: 05-09-2025 End: 86-31-0692Xzwkdxk encounter bkgljueqw91/18/2025 10:40 AM EDT Office Visit [facility] [address] [address] Sherri Garcia, INTERVENTIONAL RADIOLOGY RN-INSURANCE EXAMINER [address] [place] [address] [facility] Wound Care ClinicStart: 97-57-0760Wjrrszkit B screeningUrine Albumin:Creatinine RatioPremier Health Upper Valley Medical Centertart: 84-51-2735Piohh screening for proteinUrine MicroalbuminProPromedica Memorial Hospitalca Health SystemStart: 04-26-2025 End: 60-42-0241Ekwqjea encounter epmhnkfrt69/05/2025 2:00 PM EDT Office Visit [facility] [address] [place], [place] [address] Art Freeman, DO [address] [facility], [address], [address] [place], [place] [id number] [facility] MedicineStart: 04-26-2025 End: 92-60-9042ED Lumbar spine Views W right bending and W left bendingX-ray spine lumbar complete including flexion and extension 6+ views Imaging Routine Chronic midline low back pain without sciatica Expected: 04/26/2025, Expires: 04/26/2026[facility] Work Phone: Comment on above:Expected: 04/26/2025, Expires: 04/26/2026Start: 04-25-2025 End: 86-11-9383Luqihxr encounter bshpdobbm57/04/2025 7:30 AM EDT Appointment [place] [address] Jerome Del [place]o, [place] [address] Diabetic gastroparesis (HCC)[facility] HospitalComment on above:Diabetic gastroparesis (HCC)Start: 04-24-2025 End: 14-31-5342Ezsyari encounter ekclqtpio65/03/2025 10:30 AM EDT Office Visit [facility] [address] [place] [address] Sherri Garcia, INTERVENTIONAL RADIOLOGY RN-INSURANCE EXAMINER [address] [place] [address] [facility]ound Care ClinicStart: 04-11-2025 End: 42-32-9922Einiwus encounter ubuyaowmk56/21/2025 10:40 AM EDT Office Visit [facility] [address] [place] [address] Sherri Gacria, INTERVENTIONAL RADIOLOGY RN-INSURANCE EXAMINER [address] [place] [address] [facility]ound [facility]ertart: 04-10-2025 End: 46-60-4860Nvrgytk encounter procedureGastroenterologyComment on above:New gp consult/emptiesStart: 01-01-2025Medicare Advantage Annual Wellness Visit Medicare Advantage Annual Wellness VisitPremier Health Upper Valley Medical Centertart: 89-75-5955Afdno- 19 Vaccine ( season)Covid-19 Vaccine ()[facility] Centertart: 74-21-4034Yqzbohkfg vaccinationInfluenza Vaccine (#1)[facility] Centertart: 33-10-8492Msworxctd vaccinationInfluenza Vaccine (#1)[facility] HealthcareComment on above:Postponed from 07/23/2023 (Patient Refused)Start: 50-42-7466XlaigllroMercy Health Clermont Hospitaltart: 99-14-9969Quqvkubbc for malignant neoplasm of colonColorectal Cancer ScreeningNOWY HealthcareComment on above:Postponed from 1966 (Other Medical Reasons)Start: 01-06-2024 End: 90-42-5404Foabdtw encounter fvtsmkdto33/15/2024 4:30 PM EST Office Visit [facility] [address] [place] [address] Cheng Staples NP [address] [place] [address] ArrivedNOWY CWM FMComment on above:ArrivedStart: 10-20-2023 Hemoglobin A1c measurementDiabetes: Hemoglobin S1RVWPE HealthcareStart: 33-16-8043Elyavmlc foot examinationDiabetic Foot ExamWVUMedicine [facility] Start: 30-69-6078Ffoxhqsq specific antigen measurementProstate Cancer Screening DiscussionPremier Health Upper Valley Medical Centertart: 45-74-2978ZpT7w (Bld) [Mass fraction]A1C OhioHealthStart: 03-06-2021 End: 28-15-9198Ehalba Visit03/06/2021 Office Visit Wound Care Marcella Bell MD [address] [place] [address] [phone] [facility] Wound CareStart: 02-14-2021 End: 85-46-5941Tibycy Visit02/14/2021 Office Visit Wound Care Leanne Cherry DPM [address] [place] [address] [phone] [facility] Wound CareStart: 02-06-2021 End: 82-89-3560Btnmbs Visit02/06/2021 Office Visit Wound Care Marcella Bell MD [address] [place] [address] [phone] [facility] Wound CareStart: 01-24-2021 End: 90-52-4191Clkotz Visit01/24/2021 Office Visit Wound Care Leanne Cherry DPM [address] [place] [address] [phone] [facility] Wound CareStart: 01-09-2021 End: 68-06-2478Lxqxdq VisitAvita Health System Wound CareStart: 12-27-2020 End: 50-85-8998Hraevp Visit12/27/2020 Office Visit Wound Care Leanne Cherry DPM [address] [place] [address] [phone] [facility] Wound CareStart: 12-19-2020 End: 37-84-3358Zzkbcu Visit12/19/2020 Office Visit Wound Care Marcella Bell MD [address] [place] [address] [phone] [facility] Wound CareStart: 83-71-5383Jvwghktqxe examination and evaluationOphthalmology ExamOhioHealthStart: 12-45-2261Dsmthraxl vaccination givenSequential Influenza Vaccine (#1)[facility]HealthStart: 43-33-6566Fqihhftgylquhu of herpes zoster vaccineZoster Vaccines (1 of 2)OhioHealthStart: 2016 Administration of varicella zoster vaccineZoster (Shingles) Vaccine (1 of 2) [facility]tart: 84-55-9893Qbyyclqupboi Vaccine: 50+ (1 of 1 - PCV) Pneumococcal Vaccine: 50+ (1 of 1 - PCV)[facility] Centertart: 2016 Screening for malignant neoplasm of colonNcioHealthStart: 15-15-9047Yikkjndo Vaccine (1 of 2)Shingrix Vaccine (1 of 2)[facility] Centertart: 2011 Prostate specific antigen measurementProstate Cancer Screening Discussion [facility] Centertart: 76-39-9817Yheweapfq for malignant neoplasm of colon [facility] Centertart: 87-55-2522Awvlosqrh B Vaccine (1 of 3 - 19+ 3-dose series)Hepatitis B Vaccine (1 of 3 - 19+ 3-dose series)[facility] Centertart: 13-35-1282Uvckdoibabhq Vaccine: 50+ (1 of 2 - PCV)Pneumococcal Vaccine: 50+ (1 of 2 - PCV)[facility] Centertart: 09-11-1866Tgcqe screening for proteinDiabetes: Urine Protein ScreeningRipley County Memorial HospitalStart: 78-34-4048Uasnu BMI Follow Up Plan Adult BMI Follow Up PlanBlowing Rock Hospitaltart: 72-56-4635Izhokx PCP Team Chronic Disease VisitAnnual PCP Team Chronic Disease VisitPremier Health Upper Valley Medical Centertart: 69-11-3891Dagtstj ScreeningAnxiety ScreeningPremier Health Upper Valley Medical Centertart: 1984 Depression ScreeningDepression ScreeningPremier Health Upper Valley Medical Centertart: 1984 Hepatitis B surface antibody levelLDL CholesterolPremier Health Upper Valley Medical Centertart: 99-87-0658Zqpytwroa C antibody, confirmatory testHepatitis C ScreeningOhioHealth Start: 33-57-2363Epgfdbvqn C screeningHepatitis C ScreeningCleWadsworth-Rittman Hospital Start: 29-76-9218YUZ screeningHIV ScreeningPremier Health Upper Valley Medical Centertart: 1982 COVID-19 Vaccine (1 of 2)COVID-19 Vaccine (1 of 2)OhioHealthStart: 02-60-1206HXE screeningHIV ScreeningOhioHealthStart: 95-74-2811Foounpipca depression screening assessmentProThe MetroHealth Systemtart: 34-01-5500Vuaavtq DL <= 20 mg/L (U) [Mass/Vol]Urine MicroalbuminOhioHealthStart: 13-99-8662Ytwsgyfs foot examination [facility] Centertart: 09-45-9444Cnzuobwz screeningDilated Retinal ExamPremier Health [facility] Valley Medical Centertart: 67-80-7375Urorwpinjd examination and evaluationOphthalmology Exam [facility] CenterStart: 63-93-0974Ntzrrdo and physical examination, annual for health maintenanceMary [facility] Healthcare VisitOhioHealthStart: 54-84-7840Uwwaljuj screeningDiabetic Ophthalmology ExamProThe MetroHealth Systemtart: 1966Medicare Annual Wellness (AWV)Medicare Annual Wellness (AWV)[facility] HealthcareStart: 1966 Prostate specific antigen measurementPSA LevelOhioHealthStart: 1966 Screening for malignant neoplasm of colonNOMS HealthcareStart: 21-81-0430Dzvmmcz vaccinationTetanus: Every 10yrsOhioHealth End: 77-47-738887 lead ECGECG 12 Lead ECG Routine Once for 1 Occurrences starting 11/05/2020 until 11/05/2020OhioHealthComment on above:Once for 1 Occurrences starting 11/05/2020 until 11/05/2020Aerobic microbial cultureWound Aerobic Culture Microbiology Routine Subacute osteomyelitis of left foot (HCC) Charcot's joint of ankle, unspecified laterality 12/27/2020 12:24 PM EST TexasHealthBacteria identified Aer cx Nom (Bone)[facility] Medical CenterBacteria identified Anaer cx Nom (Unsp spec)[facility] End: 29-15-6183ATH W Auto Differential panel - BloodCBC auto differential Lab Routine Type 2 diabetes mellitus with foot ulcer, with long-term current use of insulin ([facility]) 1 Occurrences starting 04/26/2025 until 04/26/2026[facility] SystemComment on above:1 Occurrences starting 04/26/2025 until 04/26/2026 End: 91-17-5194Dqzxkzkpizwyu metabolic 2000 panel - Serum or PlasmaComprehensive metabolic panel Lab Routine Type 2 diabetes mellitus with foot ulcer, with long-term current use of insulin ([facility]) Fatty liver disease, nonalcoholic 1 Occurrences starting 04/26/2025until 04/26/2026ProUk Healthcare SystemComment on above:1 Occurrences starting 04/26/2025 until 04/26/2026T angiography of head [facility] CenterCT angiography of neck vesselsMetrohealth Parma Medical Center End: 74-19-7709Nfnovrmrdtcebl vitamin b-12Vitamin B12 Lab Routine Fatigue, unspecified type 1 Occurrences starting 05/10/2025 until 05/10/2026Pro[facility] Healthcare SystemComment on above:1 Occurrences starting 05/10/2025 until 05/10/2026 End: 27-51-0678FURMGFIDDhupakfm Procedures Routine Subacute osteomyelitis of left foot (HCC) 1 Occurrences starting 12/19/2020 until 2[facility] Comment on above:1 Occurrences starting 12/19/2020 until 12/19/2021 End: 92-79-0416WWZXHCABVjlnigqd Procedures Routine Subacute osteomyelitis of left foot (HCC) 1 Occurrences starting 01/09/2021 until 2[facility] Comment on above:1 Occurrences starting 01/09/2021 until 01/09/2022 End: 64-06-5409GNKOIUUTRbcbtrrw Procedures Routine Foot abscess, left 1 Occurrences starting 02/06/2021 until 2OhioHealthComment on above:1 Occurrences starting 02/06/2021 until 02/06/2022 End: 08-39-5334Xgmopjumcb A1c/Hemoglobin.total in BloodHemoglobin A1c Lab Routine Type 2 diabetes mellitus with foot ulcer, with long-term current use of insulin ([facility]) 1 Occurrences starting 04/26/2025 until 04/26/2026Pro[facility] Healthcare SystemComment on above:1 Occurrences starting 04/26/2025 until 04/26/2026 End: 18-91-4719Pkudv panelLipid panel Lab Routine Type 2 diabetes mellitus with foot ulcer, with long-term current use of insulin ([facility]) Hyperlipidemia, unspecified hyperlipidemia type 1 Occurrences starting 07/05/2025 until 07/05/2026[facility] Work Phone: Comment on above:1 Occurrences starting 07/05/2025 until 07/05/2026 End: 11-17-8838Nnvacvesb [Mass/volume] in Serum or PlasmaMagnesium Lab Routine Fatigue, unspecified type 1 Occurrences starting 05/10/2025 until 05/10/2026 [facility] SystemComment on above:1 Occurrences starting 05/10/2025 until 05/10/2026Patient EducationUniversity Hospitals Samar[facility] Work Phone: Patient referralUniversity Hospitals Samaritan Medical Center [facility] Work Phone: End: 80-39-5055Hvwdgjuhu specific antigen screenProstatic specific antigen screen Lab Routine Encounter for screening for malignant neoplasm of prostate 1 Occurrences starting 05/10/2025 until 05/10/2026[employer] Work Phone: Comment on above:1 Occurrences starting 05/10/2025 until 05/10/2026Radionuclide gastric emptying studyMetrohealth Parma Medical Center End: 08-27-3991Wtxblnncneoj, Total and Free, STestosterone, Total and Free, S Lab Routine Fatigue, unspecified type 1 Occurrences starting 05/10/2025 until 05/10/2026[facility]red Hospital [email or web address] SystemComment on above:1 Occurrences starting 05/10/2025 until 05/10/2026 End: 74-59-7635Hmqicme D 25 hydroxyVitamin D 25 hydroxy Lab Routine Fatigue, unspecified type 1 Occurrences starting 05/10/2025 until 05/10/2026ProPromedica Memorial [email or web address].COM SystemComment on above:1 Occurrences starting 05/10/2025 until 05/10/2026 Wound Anaerobic CultureWound Anaerobic Culture Microbiology Routine Subacute osteomyelitis of left foot (HCC) Charcot's joint of ankle, unspecified laterality 12/27/2020 12:24 PM ESTOhioHealth End: 80-74-3099A-ray of left footXR Foot Left 3+ Views (Standard) Imaging Routine Subacute osteomyelitis of left foot (HCC) 1 Occurrences starting 01/24/2021 until 01/24/2022hioHealthComment on above:1 Occurrences starting 01/24/2021 until 01/24/2022X-ray of left footXR Foot Left 3+ Views (Standard) Imaging Routine Subacute osteomyelitis of left foot (HCC) 01/24/2021 2:27 PM [facility] Immunizations Immunization DateImmunizationNotesCare LdjxqqioNjxsvhwx14-68-4883ychqnty toxoid, reduced diphtheria toxoid, and acellular pertussis vaccine, dieterLisa Staples FLY FINISHER Work Phone: [facility] Healthcare Payers DatePayer CategoryPayerPolicy [id number]-[id number] (Managed Care)[employer] MED[employer] [id number] 2024Medicare HMO [employer] MED[employer] Member Subscriber Plan / Payer (Effective 2023-Present) Name: More Kingsley Jr. Relation to Subscriber: Self Name: More Kingsley Jr. Payer ID: 1 (NAIC) Type: Not on file Address: [address] [place] [id number] Health [id number] TytlqnaIPH2VX [id number]AMZK HEALTH DEVOTED HEALTH [id number] 2023-Present [address] [place] [address] [id number] 2021Medicare2019Medicare [id number] [id number] 2.16.840.1.328750.3.57[id number] 2.16.840.1.656361.3.57[id number] 2.16.840.1.564654.3.57[id number] 2.16.840.1.983373.3.57[id number] 2.16.840.1.670183.3.57[id number] 2.16.840.1.819120.3.57[id number] 2.16.840.1.817366.3.57[id number] 2.16.840.1.344118.3.579.[id number] 2.16.840.1.098806.3.579.[id number] 2.16.840.1.580809.3.579.2.[id number] 2.16.840.1.827845.3.57[id number] 2.16.840.1.251461.3.57[id number] 2.16.840.1.010244.3.579.2.11[id number] 2.16.840.1.750869.3.579.[id number] 2..840.1.795630.3.579.2.82616-60-0739Frdbwvb7536709 2..840.1.037443.3.579.2.28125-99-0133Ujzdbhb1350139 2.840.1.509678.3.579.2.[id number] 2..840.1.665018.3.579.2.083420-61-4447Dfmblka564780 2..840.1.586368.3.579.[id number] 2.840.1.440799.3.57[id number] 2..840.1.474416.3.579.[id number] 2..840.1.864143.3.579.2.53[id number] 2.16.840.1.868639.3.579.2.316308-31-1634Kbuhrpz986571782 2.16840.1.025324.3.579.2.747965-70-0648Gnikztp447424243 2.16.840.1.783005.3.579.2.[id number] 2.0.1.048901.3.579.2.26[id number] 2.840.1.664263.3.579.2.420141-14-6579Hhvbdor371740566 2.0.1.447941.3.579.2.3[id number] 2.0.1.403711.3.579.2.4[id number] 2.840.1.516705.3.579.2.883006-03-7452Srzrtfo579710627 2..1.750927.3.579.2.249720-23-8356Klznttg746446372 2.0.1.882880.3.579.2.7[id number] 2..1.480201.3.579.2.256806-73-2623Hhfamxu444165836 2.0.1.979594.3.579.[id number] 2..1.281903.3.579.2.1286 [id number] 2.0.1.580010.19 [id number] 2.840.1.031359.3.579.2.797Hyikwau13294321 2.840.1.692891.3.579.2.512Yrqwtth39349378 2.840.1.105435.3.579.2.531 Social History DateTypeDetailFacilityStart: 12-22-2019 End: 37-79-8777Hdjemqu smoking status NHISNever smokerNOMS HealthcareStart: 12-22-2019 End: 64-82-1809Idpfjbu use and exposureNever usedOhioHealthStart: 11-19-2020 End: 49-81-3731Hbfrios intakeCurrent drinker of alcohol (finding)[facility] Start: 32-25-6804Jtoyplp CommentrarelyOhioHealthStart: 49-11-9692Nry Assigned At BirthNot on fileOhioHealthExposure to SARS-CoV-2 (event)Not sureOhioHealth Start: 02-07-2021 End: 07-80-1278Vvm Assigned At BirthHanover PingStamp Other Start: 01-06-2024 End: 13-37-4095Fnffmla intakeEx-drinker (finding)[facility] HealthcareStart: 02-07-2021 End: 48-75-9671Hlmwedu of Social functionNOMS HealthcareStart: 19-16-7253Mhdcnbw Commentpop-4 cups dailyNOMS HealthcareStart: 03-94-0521Lkl [facility]: 20-39-7548Dukgfzk smoking status NHISEx-smoker (finding)[facility] [place] smoking status NHISTobacco smoking consumption unknownChildren'S Hospital Of ColumbusNational Score (1-100), lower number is lower ptzu14Bclocmbsh ClinicDo you belong to any clubs or organizations such as druze groups, unions, fraternal or athletic groups, or [...] time - these days [OSQ]To some extent Marion HospitalTrendient SystemStart: 68-41-5026Elewguc Commentquit 2005ProPromedica Memorial HospitalDUQI.COM SystemStart: 43-72-7725JfvZefg (finding)[facility] HospitalTrendient SystemNEGATED: Highlighted rowStart: NINFHistory of tobacco usePassive smokerChildren'S Hospital Of Columbus Medical Equipment Procedure CodeEquipment CodeEquipment Original TextEquipment IdentifierDates [id number]: 08-03-2021 End: 52-54-9214Slsp Bn Bio 40gm Rpl [id number] - [id number] Start: 87-10-9206Jtrd Iol Ultrasert 18.5d - [id number] - [id number]_[id number] Start: Pen Needle by miscellaneous route in the morning and 1 Pen Needle at noon and 1 Pen Needle in theevening and 1 Pen Needle before bedtime. [id number]: 04-26-2025 End: strip by other route 4 (four) times a day before meals and nightly.[id number]: 04-26-2025 End: strip by other route 4 (four) times a day before meals and nightly.[id number]: 05-10-2025 End: strip by other route 4 (four) times a day before meals and nightly.[id number]: 05-16-2025 End: strip by other route 4 (four) times a day before meals and nightly.[id number]: 07-05-2025 End: strip by other route 3 (three) times a day.[id number]: 07-06-2025 Goals DatePatient GoalDesired Activity/StatePersonal health goalComment on above: Evaluation of progress towards goal: or [facility] facility Functional Status DgxsGrxzhcgtmaHpiqinUdvwmtkc26-97-5664Dcmpu score [AUDIT-C]0 09/21/2025 8:28 AM EDDanielle Obregon CNAProMedica [facility] Clinical Notes 08-25-2022 to 09-21-2025 Note Date & EgyrBxthExzkdile09-29-6403 History of Present illness Narrative* Art Freeman, DO - 09/21/2025 8:30 AM EDT Images from the original note were not included. [facility] [address] [place] [address] [place] [address] Patient: More Kingsley Jr. Date of : [...] 02/2021 left foot Chronic osteomyelitis of foot ([facility]) 02/2021 left/with draining sinus Dental disease poor repair Diabetes mellitus type 2, controlled ([facility]) 1999 Hyperlipidemia Hypertension PICC (peripherally inserted central catheter) flush 02/2021 Visual impairment glasses Past Surgical History: Procedure Laterality Date AMPUTATION SYMES LOWER EXTREMITY Left 04/18/2021 Performed by Chan Brooke DPM at [facility] SURGERY AMPUTATION TOEMID FOOT OSTEOTOMY ACHILLES TENOTOMY Left 02/07/2021 Performed by Chan Brooke DPM at [facility] ASPIRATION BONE MARROW BIOPSY BONE MARROW (BONE BIOPSY) Left 03/24/2021 Performed by Chan Brooke DPM at [facility] CLOSURE WOUND LOWER EXTREMITY (DELAYED PRIMARY CLOSURE) Left 03/24/2021 Performed by Chan Brooke DPM at [facility] DEBRIDEMENT FOOT/ANKLE Left 02/07/2021 Performed by Chan Brooke DPM at [facility] EXOSTECTOMY FOOT Right 09/01/2021 Performed by Chan Brooke DPM at [facility] PHACO KELMAN I IMPLANT INTRAOCULAR LENS Right 12/28/2019 Performed by Debra Trejo MD at [facility] REMOVAL HARDWARE FOOT/TOE, AND REMOVAL ANTIBIOTIC SPACER Left 03/24/2021 Performed by Chan Brooke DPM at [facility] TONSILLECTOMY as child Family History Problem Relation [...] and 11 to the basement. Worked at [employer]. Now disabled Social Drivers of Health Financial Resource Strain: Low Risk (01/06/2024) Received from [facility] Overall Financial Resource Strain (CARDIA) [...] Needs: Unmet Transportation Needs (01/06/2024) Received from [facility] PRAPARE - Transportation Lack of Transportation (Medical): Yes Lack of Transportation (Non-Medical): Yes Physical Activity: Inactive (01/06/2024) Received from [facility] Exercise Vital Sign On average, how many days per week do you engage in moderate to strenuous exercise (like a brisk walk)?: 0 days On average, how many minutes do you engage in exercise at this level?: 0 min Stress: Stress Concern Present (01/06/2024) Received from [facility] [place] of Occupational Health - Occupational Stress Questionnaire Feeling of Stress : Very much Social Connections: Socially Isolated (01/06/2024) Received from [facility] Social Connection and Isolation Panel In a typical week, how many times do you talk on the phone with family, friends, or neighbors?: Never How often do you get together with friends or relatives?: Never How often do you attend druze or congregational services?: Never Do you belong to any clubs or organizations such as druze groups, unions, fraternal or athletic groups, or school groups?: Yes How often do you attend meetings of the clubs or organizations you belong to?: Never Are you , , , , never , or living with a partner?: Interpersonal Safety: Unknown (01/13/2024) Received from [facility] Safety & Environment Fear of Current or Ex-Partner: Not on file Emotionally Abused: Not on file Physically Abused: Not on file Sexually Abused: Not on file Physically or Sexually Abused: Not on file Housing Instability: Low Risk (01/06/2024) Received from [facility] Housing Stability Vital Sign Unable [...] HISTORY: Right foot ulcer, with unspecified severity ([facility]). COMPARISON: 03/04/2025 IMPRESSION: Unchanged indication about [...] ulcer, with long-term current use of insulin ([facility]) - POCT Hemoglobin A1c - insulin glargine [...] hyperlipidemia due to type 2 diabetes mellitus ([facility]) No problem-specific Assessment & Plan notes found [...] DO 09/21/25 2:02 PM documented in this encounterWVUMedicine Harrison [facility]10-31-2025 Instructions* Patient Instructions* Art Freeman DO [...] daily for heartburn symptoms documented in this encounterWVUMedicine Harrison Community Hospital10-09-2025 Miscellaneous Notes* Telephone Encounter - Phu Ocasio MA - 08/30/2025 1:02 PM EDT The patient was a no show today. [employer] Un[employer] OPAL requesting patient call back to schedule another appointment. documented in this encounterWVUMedicine Harrison Community Hospital10-09-2025 Telephone encounter Note* Telephone Encounter - Phu Ocasio MA - 08/30/2025 1:02 PM EDT The patient was a no show today. [employer] Un[employer]AL requesting patient call back to schedule another appointment. [facility]10-06-2025 Miscellaneous Notes* Telephone Encounter - Sangeetha Ivory - 08/27/2025 2:12 PM EDT Patient presenting to office requesting refill of amox/k clav 875-125 MG tab to [facility]. Please advise * Telephone Encounter - [...] twice daily for 14 days sent into [place], [place] documented in this encounterWVUMedicine Harrison Community Hospital10-06-2025 Telephone encounter Note* Telephone Encounter - Sangeetha Ivory - 08/27/2025 2:12 PM EDT Patient presenting to office requesting refill of amox/k clav 875-125 MG tab to [facility]. Please advise [facility]10-06-2025 Telephone encounter Note* Telephone Encounter - Danielle Masters CNA - 08/27/2025 2:12 PM EDT Spoke with patient, he states he would like a refill for this medication. Spoke with him and he states he is still having symptoms Please advise? [facility]10-06-2025 Telephone encounter Note* Telephone Encounter - Art Freeman DO - 08/27/2025 2:12 PM EDT Prescription for Augmentin 875/125 mg 1 tablet twice daily for 14 days sent into [place], [place] [facility]10-03-2025 Miscellaneous Notes* Telephone Encounter - Ev Marquez CMA - 08/24/2025 10:18 AM EDT Attempted to call patient and inform him on NovoLog in office for him to crop picker in office, no answer, left voicemail. documented in this encounterCentral Vermont Medical CenterHuayi Brothers Media [facility]10-03-2025 Telephone encounter Note* Telephone Encounter - Ev Marquez CMA - 08/24/2025 10:18 AM EDT Attempted to call patient and inform him on NovoLog in office for him to crop picker in office, no answer, left voicemail. [facility]10-01-2025 Radiology [facility] [place] [address] CT Scan Report Signed Patient: More Kingsley MR#: [id number] : 1965 Acct:[id number] Age/Sex: 59 / M ADM Date: 5 Loc: CT Room: Type: [facility] Attending Dr: Cathy Leggett FLY FINISHER-C Copies to: Cathy Leggett APRN~ Ordering Provider: Cathy Leggett APRN Date of Service: 08/22/25 CT/CT angio head: I65.23 - Occlusion and stenosis of bilateral carotid ney... ([id number]) CT/CT angio neck: I65.23 - Occlusion and [...] Kidd M.D. 08/22/2025 5:14 PM Dictation Location: [facility]-- Transcribed By: AMBER 08/22/251713 Dictated By: Blair Kidd II, MD 08/22/251703 Signed By: 08/22/251713 [facility] Work Phone: [phone] Miscellaneous Notes* Telephone Encounter - Ev Marquez CMA - 08/16/2025 11:15 AM EDT Attempted to call patient to inform of package for Lantus medication received in office and ready for him to crop picker documented in this encounterCentral Vermont Medical CenterHuayi Brothers [facility] Group09-25-2025 Telephone encounter Note* Telephone Encounter - Ev Marquez CMA - 08/16/2025 11:15 AM EDT Attempted to call patient to inform of package for Lantus medication received in office and ready for him to crop picker [facility]09-22-2025 History of Present illness Narrative* Roxy Lenz, [facility] - 08/13/2025 8:00 AM EDT [facility] PHARMAC[facility] MEDICATION MANAGEMENT [address] [facility] [id number] Subjective SUBJECTIVE: Referring Provider: Art Freeman DO [...] and Novolog. [facility]. To this request [...] Blood Glucose Device Brand: Accu-check Diabetic Supplier: [employer] in [place] Retail Date FBG AC PPG 08/13 237 [...] B12 Level: Lab Results Component Value Date KYNZQHZJ32 1,009 (H) 05/16/2025 Lipid Management: Lab Results [...] for instruction with dosing Patient stated to [facility] that he did not need to do this as his glucose is well controlled when he hasthese insulins. Explained his A1C has not been controlled in some time and to please notify PPMM sowe can safely adjust his dosing. Patient non-committal to this. Refills needed on pertinent current medications/supplies: No Patient Assistance, Edge [employer] Operator Coupon, or Prior Authorization: Yes PAP singed for Farxiga today PAP with Sonofi (Lantus) approved 2024 PAP with Alejandra Nordisk (Novolog) approved 2024 Ozempic PAP started today Patient will need to crop picker medication from providers office MONITORING: CGM: N/A Glucometer Testing: Twice daily (fasting and alternating post-prandial and before meals) FOLLOW UP: Next PCP visit: 09/21/2025 Next Pharmacist visit: 08/30/25 Signature: Roxy Lenz PharmD, [facility] 30 minute txic-by-vsly follow-up appointment. Roxy Lenz RPH 08/13/25 1206 documented in this encounterWVUMedicine Harrison Community Hospital09-19-2025 History of Present illness Narrative* Art Freeman, DO - 08/10/2025 10:00 AM EDT Images from the original note were not included. [facility] [address] [place] [address] [place] [address] Patient: More Kingsley Jr. Date of : [...] 02/2021 left foot Chronic osteomyelitis of foot ([facility]) 02/2021 left/with draining sinus Dental disease poor repair Diabetes mellitus type 2, controlled ([facility]) 1999 Hyperlipidemia Hypertension PICC (peripherally inserted central catheter) flush 02/2021 Visual impairment glasses Past Surgical History: Procedure Laterality Date AMPUTATION SYMES LOWER EXTREMITY Left 04/18/2021 Performed by Chan Brooke DPM at [facility] AMPUTATION TOEMID FOOT OSTEOTOMY ACHILLES TENOTOMY Left 02/07/2021 Performed by Chan Brooke DPM at [facility] ASPIRATION BONE MARROW BIOPSY BONE MARROW (BONE BIOPSY) Left 03/24/2021 Performed by Chan Brooke DPM at [facility] CLOSURE WOUND LOWER EXTREMITY (DELAYED PRIMARY CLOSURE) Left 03/24/2021 Performed by Chan Brooke DPM at [facility] DEBRIDEMENT FOOT/ANKLE Left 02/07/2021 Performed by Chan Brooke DPM at [facility] EXOSTECTOMY FOOT Right 09/01/2021 Performed by Chan Brooke DPM at [facility] PHACO KELMAN I IMPLANT INTRAOCULAR LENS Right 12/28/2019 Performed by Debra Trejo MD at [facility] REMOVAL HARDWARE FOOT/TOE, AND REMOVAL ANTIBIOTIC SPACER Left 03/24/2021 Performed by Chan Brooke DPM at [facility] TONSILLECTOMY as child Family History Problem Relation [...] and 11 to the basement. Worked at [employer]. Now disabled Social Drivers of Health Financial Resource Strain: Low Risk (01/06/2024) Received from [facility] Overall Financial Resource Strain (CARDIA) Difficulty of Paying Living Expenses: Not hard at all Food Insecurity: Food Insecurity Present (08/10/2025) Hunger Screening Food Insecurity - Worry: Sometimes True Food Insecurity - Inability: Sometimes True Transportation Needs: Unmet Transportation Needs (01/06/2024) Received from [facility] PRAPARE - Transportation Lack of Transportation (Medical): Yes Lack of Transportation (Non-Medical): Yes Physical Activity: Inactive (01/06/2024) Received from [facility] Exercise Vital Sign Days of Exercise per Week: 0 days Minutes of Exercise per Session: 0 min Stress: Stress Concern Present (01/06/2024) Received from [facility] [place] of Occupational Health - Occupational Stress Questionnaire Feeling of Stress : Very much Social Connections: Socially Isolated (01/06/2024) Received from [facility] Social Connection and Isolation Panel [NHANES] Frequency of Communication with Friends and Family: Never Frequency of Social Gatherings with Friends and Family: Never Attends Mosque Services: Never Active Member of Clubs or Organizations: Yes Attends Club or Organization Meetings: Never Marital Status: Interpersonal Safety: Unknown (01/13/2024) Received from [facility] Safety & Environment Fear of Current or Ex-Partner: Not on file Emotionally Abused: Not on file Physically Abused: Not on file Sexually Abused: Not on file Physically or Sexually Abused: Not on file Housing Instability: Low Risk (01/06/2024) Received from [facility] Housing Stability Vital Sign Unable [...] HISTORY: Right foot ulcer, with unspecified severity ([facility]). COMPARISON: 03/04/2025 IMPRESSION: Unchanged indication about the [...] ulcer, with long-term current use of insulin ([facility]) - lisinopriL (PRINIVIL,ZESTRIL) 10 mg tablet; Take 1 tablet (10 mg total) by mouth in the morning for 360 days. Dispense: 90 tablet; Refill: 3 - insulin NPH (HumuLIN N,NovoLIN N) 100 unit/mL injection; 38 units in the morning and 40 units at nighttime Dispense: 10 mL; Refill: 3 5. Mixed hyperlipidemia due to type 2 diabetes mellitus ([facility]) - atorvastatin (LIPITOR) 80 mg tablet; Take 1 tablet (80 mg total) by mouth daily with breakfast for 360 days Indications: excessive fat in the blood. Dispense: 90 tablet; Refill: 3 - niacin (NIASPAN) 500 mg CR tablet; Take 1 tablet (500 mg total) by mouth nightly. Dispense: 90 tablet; Refill: 1 6. Ulcer of right foot with fat layer exposed ([facility]) - amoxicillin-pot clavulanate (AUGMENTIN) 875-125 mg per tablet; Take 1 tablet by mouth in the morning and 1 tablet before bedtime. Do all this for 14 days. Dispense: 28 tablet; Refill: 0 7. Type 2 diabetes mellitus with other circulatory complication, with long-term current use of insulin ([facility]) - semaglutide (OZEMPIC) 0.25 mg or [...] month DM/HbA1c/right foot wound follow up - rAt Freeman DO 08/10/25 1:49 PM documented in this encounterWVUMedicine [facility]09-19-2025 Instructions* Patient Instructions* Art Freeman DO - 08/10/2025 10:00 AM EDT Increased atorvastatin to 80 mg daily and start on niacin 500 mg 1 tablet nightly for HDL improvement. Take Niacin with aspirin 81 mg daily to help with flushing. Increase Novolin N to 38 units in the morning and 40 units in the evening documented in this encounterWVUMedicine Harrison Community Hospital08-26-2025 Miscellaneous Notes* Telephone Encounter - Olamide Luna - 07/17/2025 11:58 AM EDT Alejandra Nordisk Patient assistance application faxed to Dr. Art Freeman's office at [phone] forprovider signature. To follow up call [phone]. [employer] Patient assistance application faxed to Dr. Art Freeman's office at [phone] for provider signature. To follow up call [phone]. documented in this [facility]08-26-2025 Telephone encounter Note* Telephone Encounter - Olamide Luna - 07/17/2025 11:58 AM EDT Alejandra Nordisk Patient assistance application faxed to Dr. Art Freeman's office at [phone] forprovider signature. To follow up call [phone]. [employer] Patient assistance application faxed to Dr. Art Freeman's office at [phone] for provider signature. To follow up call [phone]. [facility]08-26-2025 Miscellaneous Notes* Telephone Encounter - Danielle [...] To: Art Freeman DO documented in this encounterWVUMedicine Harrison [facility] Hospital08-26-2025 Telephone encounter Note* Telephone Encounter - [...] 3:26 PM EDT To: Art Freeman DO [facility]08-[facility] History of Present illness Narrative* Lele Frye, [facility] - 07/16/2025 8:00 AM EDT Images from the original note were not included. [facility] - PHARMACY MEDICATION MANAGEMENT [address] [facility] [id number] Subjective SUBJECTIVE: Referring Provider: Art Freeman DO [...] assistance for his insulins. Applications for both [employer] and Alejandra NordPhthisis Diagnostics completed today for Lantus, Novolog, and if [...] and will report any side effects to [facility] immediately. Will also need to follow [...] Blood Glucose Device Brand: Accu-check Diabetic Supplier: [employer] [facility] [place] [employer] BG in the mid to high [...] B12 Level: Lab Results Component Value Date [id number] 1,009 (H) 05/16/2025 Lipid Management: Lab Results [...] on pertinent current medications/supplies: No Patient Assistance, [employer] Operator Coupon, or Prior Authorization: Yes PAP with Sonofi (Lantus) PAP with Alejandra Nordisk (Novolog) Patient will need to crop picker medication from providers office MONITORING: CGM: N/A Glucometer Testing: Twice daily (fasting and alternating post-prandial and before meals) FOLLOW UP: Next PCP visit: 08/10/2025 Next Pharmacist visit: 1 month Signature: LELE FRYE RPH 60 minute eusw-cf-xfuo initial appointment. Lele Frye RPH 07/16/25 1336 documented in this encounterWVUMedicine Harrison [facility] Hospital08-15-2025 Evaluation + Plan note* Assessment & Plan Note - Art Freeman DO - 07/06/2025 2:46 PM EDT Associated Problem(s): Peripheral artery disease Patient with moderate to severe peripheral artery disease based on studies from hospitalization earlier in June. Patient scheduled to have vascular procedure on 07/09. Improvement in vascular function will help with diabetic foot ulcer heal [facility]08-15-2025 Miscellaneous Notes* Assessment & Plan Note - Art Fremean DO - 07/06/2025 2:46 PM EDTAssociated Problem(s): Peripheral artery disease Patient with moderate to severe peripheral artery disease based on studies from hospitalization earlier in June. Patient scheduled to have vascular procedure on 07/09. Improvement in vascular function will help with diabetic foot ulcer heal * Assessment & Plan Note - Art Freeman DO - 07/06/2025 2:42 PM EDT Associated Problem(s): Diabetes mellitus ([facility]) Patient diabetes is uncontrolled. Due to financial restrictions, he is unable to afford insulin which he uses to control blood sugar. Patient's last hemoglobin A1c from April 2025 was 11.5%. Discussed with patient the importance of blood sugar control. Since patient having difficulty affording the cost of medications we will refer patient to the [facility] medical management team fordiabetes to aid with patient assistance and management of blood sugars for tighter control.. documented in this encounterWVUMedicine Harrison [facility] Hospital08-15-2025 Evaluation + Plan note* Assessment & Plan Note - Art Freeman DO - 07/06/2025 2:42 PM EDT Associated Problem(s): Diabetes mellitus ([facility]) Patient diabetes is uncontrolled. Due to financial restrictions, he is unable to afford insulin which he uses to control blood sugar. Patient's last hemoglobin A1c from April 2025 was 11.5%. Discussed with patient the importance of blood sugar control. Since patient having difficulty affording the cost of medications we will refer patient to the [facility] medical management team fordiabetes to aid with patient assistance and management of blood sugars for tighter control.. [facility]08-14-2025 Miscellaneous Notes* Telephone Encounter - Jennie Celaya - 07/05/2025 11:10 AM EDT [facility] [place] [address] New referral received by [facility] for diabetes. Patient was contacted to schedule appointment at [facility] [place] ([facility]). This was my first attempt to [...] called and scheduled an appointment 07/16/25 at [facility]. documented in this encounterWVUMedicine [facility]08-14-2025 Telephone encounter Note* Telephone Encounter - Jennie Celaya - 07/05/2025 11:10 AM EDT [facility] [address] [address] New referral received by [facility] for diabetes. Patient was contacted to schedule appointment at [facility] [place] ([facility]). This was my first attempt to reach the patient and a message was left on their voicemail requesting a call back. [facility] Additional Info: Medication List. Referring provider: Art Freeman DO Patient with poorly controlled diabetes in part due to issues with affording the cost of insulin. Use is sporadic. ALos had chronic nonhealing diabetic wound on foot. Office does not have samples to provide [facility]08-14-2025 Telephone encounter Note* Telephone Encounter - Phu Ocasio MA - 07/05/2025 11:10 AM EDT Patient called and scheduled an appointment 07/16/25 at [facility]. [facility]08-14-2025 History of Present illness Narrative* Art Freeman, - 07/05/2025 9:30 AM EDT Images from the original note were not included. [facility] [address] [place] [address] [place] [address] Patient: More Kingsley Jr. Date of : [...] until June 22, [address] [facility] for diabetic infection of the right [...] 02/2021 left foot Chronic osteomyelitis of foot ([facility]) 02/2021 left/with draining sinus Dental disease poor repair Diabetes mellitus type 2, controlled ([facility]) 1999 Hyperlipidemia Hypertension PICC (peripherally inserted central catheter) flush 02/2021 Visual impairment glasses Past Surgical History: Procedure Laterality Date AMPUTATION SYMES LOWER EXTREMITY Left 04/18/2021 Performed by Chan Brooke DPM at [facility] AMPUTATION TOEMID FOOT OSTEOTOMY ACHILLES TENOTOMY Left 02/07/2021 Performed by Chan Brooke DPM at [facility] ASPIRATION BONE MARROW BIOPSY BONE MARROW (BONE BIOPSY) Left 03/24/2021 Performed by Chan Brooke DPM at [facility] CLOSURE WOUND LOWER EXTREMITY (DELAYED PRIMARY CLOSURE) Left 03/24/2021 Performed by Chan Brooke DPM at [facility] DEBRIDEMENT FOOT/ANKLE Left 02/07/2021 Performed by Chan Brooke DPM at [facility] EXOSTECTOMY FOOT Right 09/01/2021 Performed by Chan Brooke DPM at [facility] SURGERY PHACO KELMAN I IMPLANT INTRAOCULAR LENS Right 12/28/2019 Performed by Debra Trejo MD at [facility] REMOVAL HARDWARE FOOT/TOE, AND REMOVAL ANTIBIOTIC SPACER Left 03/24/2021 Performed by Chan Brooke DPM at [facility] SURGERY TONSILLECTOMY as child [...] and 10 to the basement. Worked at [employer]. Now disabled Social Drivers of Health Financial Resource Strain: Low Risk (01/06/2024) Received from [facility] Overall Financial Resource Strain (CARDIA) Difficulty of Paying Living Expenses: Not hard at all Food Insecurity: No Food Insecurity (07/05/2025) Hunger Screening Food Insecurity - Worry: Never True Food Insecurity - Inability: Never True Transportation Needs: Unmet Transportation Needs (01/06/2024) Received from [facility] PRAPARE - Transportation Lack of Transportation (Medical): Yes Lack of Transportation (Non-Medical): Yes Physical Activity: Inactive (01/06/2024) Received from [facility] Exercise Vital Sign Days of Exercise per Week: 0 days Minutes of Exercise per Session: 0 min Stress: Stress Concern Present (01/06/2024) Received from [facility] [place] [employer] - Occupational Stress Questionnaire Feeling of Stress : Very much Social Connections: Socially Isolated (01/06/2024) Received from [facility] Social Connection and Isolation Panel [NHANES] Frequency of Communication with Friends and Family: Never Frequency of Social Gatherings with Friends and Family: Never Attends Mosque Services: Never Active Member of Clubs or Organizations: Yes Attends Club or Organization Meetings: Never Marital Status: Interpersonal Safety: Unknown (01/13/2024) Received from [facility] Safety & Environment Fear of Current or Ex-Partner: Not on file Emotionally Abused: Not on file Physically Abused: Not on file Sexually Abused: Not on file Physically or Sexually Abused: Not on file Housing Instability: Low Risk (01/06/2024) Received from [facility] Housing Stability Vital Sign Unable [...] HISTORY: Right foot ulcer, with unspecified severity ([facility]). COMPARISON: 03/04/2025 IMPRESSION: Unchanged indication about [...] ulcer, with long-term current use of insulin ([facility]) - Lipid panel; Future - [facility] - [place], [place]; Future 2. Ulcer of right foot with fat layer exposed ([facility]) - collagenase (SantyL) ointment; Apply 1 [...] 2 5. Peripheral artery disease Diabetes mellitus ([facility]) Patient diabetes is uncontrolled. Due to financial restrictions, he is unable to afford insulin which he uses to control blood sugar. Patient's last hemoglobin A1c from April 2025 was 11.5%. Discussed with patient the importance of blood sugar control. Since patient having difficulty affording the cost of medications we will refer patient to the [facility] medical management team fordiabetes to [...] DO 07/06/25 2:46 PM documented in this encounterWVUMedicine [facility]08-07-2025 Evaluation note* Diagnosis Onset Date Resolution Status Admit Date Diabetic ulcer of right foot acuteAugust 2024 9:55amOcclusion and stenosis of bilateral carotid arteries acuteAugust 2024 9:55amPAD (peripheral artery disease)acuteAugust 2024 9:55am [facility] Work Phone: [phone]) 888-245707-01-2025 Miscellaneous Notes* Telephone Encounter - Danielle Masters [...] manage his blood sugars. documented in this encounterWVUMedicine [facility]07-01-2025 Telephone encounter Note* Telephone Encounter - [...] 1:51 PM EDT To: Art Freeman DO [facility]07-01-2025 Telephone encounter Note* Telephone Encounter - Danielle Masters CNA - 05/22/2025 2:40 PM EDT Spoke with patient, he verbalized understanding. Patient declined the referral to endocrinology, just states he needs his meds [facility]07-01-2025 Telephone encounter Note* Telephone Encounter - Art Freeman DO - 05/22/2025 2:40 PM EDT Attempted to call patient did not answer I did not leave a message. I wanted to make sure from his last visit that he was able to get his insulins to manage his blood sugars. [facility]06-22-2025 Miscellaneous Notes* Telephone Encounter - Art Freeman DO - 05/13/2025 3:07 PM EDT CHANGE TO ACCUCHECK documented in this encounterWVUMedicine [facility] Hospital06-22-2025 Telephone encounter Note* Telephone Encounter - Art Freeman DO - 05/13/2025 3:07 PM EDT CHANGE TO ACCUCHECK [facility]06-19-2025 Evaluation + Plan note* Assessment & Plan Note - Art Freeman DO - 05/10/2025 12:59 PM EDTAssociated Problem(s): Benign essential HTN Hypertension is stable. Continue with hydrochlorothiazide 12.5 mg daily and lisinopril 10 mg daily. [facility]06-19-2025 Miscellaneous Notes* Assessment & Plan Note - Art Freeman DO - 05/10/2025 12:59 PM EDTAssociated Problem(s): Benign essential HTN Hypertension is stable. Continue with hydrochlorothiazide 12.5 mg daily and lisinopril 10 mg daily. * Assessment & Plan Note - Art Freeman DO - 05/10/2025 12:58 PM EDT Associated Problem(s): Diabetes mellitus ([facility]) Hemoglobin A1c from May 02, [...] mg 1 tablet daily. documented in this encounterWVUMedicine [facility] Hospital06-19-2025 Evaluation + Plan note* Assessment & Plan Note - Art Freeman DO - 05/10/2025 12:58 PM EDT Associated Problem(s): Diabetes mellitus ([facility]) Hemoglobin A1c from May 02, 2025 was 11.5%. Patient was unable to afford insulin prescriptions at last visit. Prescribed Lantus Solostar insulin pens 30 units twice daily and NovoLog flex pen sliding scale 3 times daily with meals. [facility]06-19-2025 Evaluation + Plan note* Assessment & Plan Note - Art Freeman DO - 05/10/2025 12:57 PM EDTAssociated Problem(s): Chronic midline low back pain without sciatica Reviewed 6 view lumbar x-rays from May 02, 2025. Prescribed celecoxib 100 mg 1 tablet daily. [facility]06-[facility] History of Present illness Narrative* Art Freeman DO - 05/10/2025 9:30 AM EDT Images from the original note were not included. [facility] [address] [place] [address] Patient: More Kingsley Jr. Date of : [...] 02/2021 left foot Chronic osteomyelitis of foot ([facility]) 02/2021 left/with draining sinus Dental disease poor repair Diabetes mellitus type 2, controlled ([facility]) 1999 Hyperlipidemia Hypertension PICC (peripherally inserted central catheter) flush 02/2021 Visual impairment glasses Past Surgical History: Procedure Laterality Date AMPUTATION SYMES LOWER EXTREMITY Left 04/18/2021 Performed by Chan Brooke DPM at [facility] AMPUTATION TOEMID FOOT OSTEOTOMY ACHILLES TENOTOMY Left 02/07/2021 Performed by Chan Brooke DPM at [facility] ASPIRATION BONE MARROW BIOPSY BONE MARROW (BONE BIOPSY) Left 03/24/2021 Performed by Chan Brooke DPM at [facility] CLOSURE WOUND LOWER EXTREMITY (DELAYED PRIMARY CLOSURE) Left 03/24/2021 Performed by Chan Brooke DPM at [facility] SURGERY DEBRIDEMENT FOOT/ANKLE Left 02/07/2021 Performed by Chan Brooke DPM at [facility] EXOSTECTOMY FOOT Right 09/01/2021 Performed by Chan Brooke DPM at [facility] SURGERY PHACO KELMAN I IMPLANT INTRAOCULAR LENS Right 12/28/2019 Performed by Debra Trejo MD at [facility] REMOVAL HARDWARE FOOT/TOE, AND REMOVAL ANTIBIOTIC SPACER Left 03/24/2021 Performed by Chan Brooke DPM at [facility] SURGERY TONSILLECTOMY as child [...] and 10 to the basement. Worked at [employer]. Now disabled Social Drivers of Health Financial Resource Strain: Low Risk (01/06/2024) Received from [facility] Overall Financial Resource Strain (CARDIA) Difficulty of Paying Living Expenses: Not hard at all Food Insecurity: No Food Insecurity (05/10/2025) Hunger Screening Food Insecurity - Worry: Never True Food Insecurity - Inability: Never True Transportation Needs: Unmet Transportation Needs (01/06/2024) Received from [facility] PRAP[facility] - Transportation Lack of Transportation (Medical): Yes Lack of Transportation (Non-Medical): Yes Physical Activity: Inactive (01/06/2024) Received from [facility] Exercise Vital Sign Days of Exercise per Week: 0 days Minutes of Exercise per Session: 0 min Stress: Stress Concern Present (01/06/2024) Received from [facility] [place] [employer] - Occupational Stress Questionnaire Feeling of Stress : Very much Social Connections: Socially Isolated (01/06/2024) Received from [facility] Social Connection and Isolation Panel [NHANES] Frequency of Communication with Friends and Family: Never Frequency of Social Gatherings with Friends and Family: Never Attends Mosque Services: Never Active Member of Clubs or Organizations: Yes Attends Club or Organization Meetings: Never Marital Status: Interpersonal Safety: Unknown (01/13/2024) Received from [facility] Safety & Environment Fear of Current or Ex-Partner: Not on file Emotionally Abused: Not on file Physically Abused: Not on file Sexually Abused: Not on file Physically or Sexually Abused: Not on file Housing Instability: Low Risk (01/06/2024) Received from [facility] Housing Stability Vital Sign Unable [...] ulcer, with long-term current use of insulin ([facility]) - lisinopriL (PRINIVIL,ZESTRIL) 10 mg tablet; [...] 100 mg 1 tablet daily. Diabetes mellitus ([facility]) Hemoglobin A1c from May 02, 2025 [...] DO 05/10/25 12:59 PM documented in this encounterWVUMedicine [facility]06-19-2025 Instructions* Patient Instructions* Art Freeman DO [...] and exercises as given documented in this encounterWVUMedicine [facility]06-06-2025 Evaluation + Plan note* Assessment & Plan Note - Art Freeman DO - 04/27/2025 9:18 PM EDT Associated Problem(s): Chronic midline low back pain without sciatica Ordered x-rays of lumbar spine 6 views including flexion and extension views. [facility]06-06-2025 Miscellaneous Notes* Assessment & Plan Note - Art Freeman DO - 04/27/2025 9:18 PM EDTAssociated Problem(s): Chronic midline low back pain without sciatica Ordered x-rays of lumbar spine 6 views including flexion and extension views. * Assessment & Plan Note - Art Freeman DO - 04/27/2025 9:16 PM EDT Associated Problem(s): Diabetes mellitus ([facility]) Last hemoglobin A1c from April 01, 2025 [...] level of transaminase elevation documented in this encounterWVUMedicine [facility]06-06-2025 Evaluation + Plan note* Assessment & Plan Note - Art Freeman DO - 04/27/2025 9:16 PM EDT Associated Problem(s): Diabetes mellitus ([facility]) Last hemoglobin A1c from April 01, 2025 was 11%. Continue with insulin glargine 30 units nightly, insulin lispro sliding scale coverage before meals. Monitor blood sugars before meals. [facility]06-[facility]25 Evaluation + Plan note* Assessment & Plan Note - Art Freeman DO - 04/27/2025 9:14 PM EDTAssociated Problem(s): Benign essential HTN Blood pressure today in normal range. Patient denies any symptoms. Continue with hydrochlorothiazide 12.5 mg daily, lisinopril 10 mg daily. [facility] Evaluation + Plan note* Assessment & Plan Note - Art Freeman DO - 04/27/2025 9:13 PM EDTAssociated Problem(s): Fatty liver disease, nonalcoholic Ordered lab work including comprehensive metabolic panel to evaluate for level of transaminase elevation [facility]06-05-2025 History of Present illness Narrative* Art Freeman DO - 04/26/2025 2:00 PM EDT Images from the original note were not included. [facility] [address] [place] [address] Patient: More Kingsley Jr. Date of : [...] 02/2021 left foot Chronic osteomyelitis of foot ([facility]) 02/2021 left/with draining sinus Dental disease poor repair Diabetes mellitus type 2, controlled ([facility]) 1999 Hyperlipidemia Hypertension PICC (peripherally inserted central catheter) flush 02/2021 Visual impairment glasses Past Surgical History: Procedure Laterality Date AMPUTATION SYMES LOWER EXTREMITY Left 04/18/2021 Performed by Chan Brooke DPM at [facility] AMPUTATION TOEMID FOOT OSTEOTOMY ACHILLES TENOTOMY Left 02/07/2021 Performed by Chan Brooke DPM at [facility] ASPIRATION BONE MARROW BIOPSY BONE MARROW (BONE BIOPSY) Left 03/24/2021 Performed by Chan Brooke DPM at [facility] CLOSURE WOUND LOWER EXTREMITY (DELAYED PRIMARY CLOSURE) Left 03/24/2021 Performed by Chan Brooke DPM at [facility] DEBRIDEMENT FOOT/ANKLE Left 02/07/2021 Performed by Chan Brooke DPM at [facility] EXOSTECTOMY FOOT Right 09/01/2021 Performed by Chan Brooke DPM at [facility] SURGERY PHACO KELMAN I IMPLANT INTRAOCULAR LENS Right 12/28/2019 Performed by Debra Trejo MD at [facility] REMOVAL HARDWARE FOOT/TOE, AND REMOVAL ANTIBIOTIC SPACER Left 03/24/2021 Performed by Chan Brooke DPM at [facility] SURGERY TONSILLECTOMY as child [...] and 10 to the basement. Worked at [employer]. Now disabled Social Drivers of Health Financial Resource Strain: Low Risk (01/06/2024) Received from [facility] Overall Financial Resource Strain (CARDIA) Difficulty of Paying Living Expenses: Not hard at all Food Insecurity: No Food Insecurity (04/26/2025) Hunger Screening Food Insecurity - Worry: Never True Food Insecurity - Inability: Never True Transportation Needs: Unmet Transportation Needs (01/06/2024) Received from [facility] - Transportation Lack of Transportation (Medical): Yes Lack of Transportation (Non-Medical): Yes Physical Activity: Inactive (01/06/2024) Received from [facility] Exercise Vital Sign Days of Exercise per Week: 0 days Minutes of Exercise per Session: 0 min Stress: Stress Concern Present (01/06/2024) Received from [facility] [place] [employer] - Occupational Stress Questionnaire Feeling of Stress : Very much Social Connections: Socially Isolated (01/06/2024) Received from [facility] Social Connection and Isolation Panel [NHANES] Frequency of Communication with Friends and Family: Never Frequency of Social Gatherings with Friends and Family: Never Attends Mosque Services: Never Active Member of Clubs or Organizations: Yes Attends Club or Organization Meetings: Never Marital Status: Interpersonal Safety: Unknown (01/13/2024) Received from [facility] Safety & Environment Fear of Current or Ex-Partner: Not on file Emotionally Abused: Not on file Physically Abused: Not on file Sexually Abused: Not on file Physically or Sexually Abused: Not on file Housing Instability: Low Risk (01/06/2024) Received from [facility] Housing Stability Vital Sign Unable [...] ulcer, with long-term current use of insulin ([facility]) - TRUE METRIX GLUCOSE TEST STRIP [...] daily, lisinopril 10 mg daily. Diabetes mellitus ([facility]) Last hemoglobin A1c from April [...] DO 04/27/25 9:18 PM documented in this encounterWVUMedicine [facility]06-05-2025 Instructions* Patient Instructions* Art Freeman DO - 04/26/2025 2:00 PM EDT Get blood work and x-ray of lumbar spine completed before next visit. Follow instructions for medications. Check blood sugars up to 4 times per day and use short acting insulin as directed. Take Lantus 30 units daily documented in this encounterWVUMedicine [facility] Hospital06-03-2025 History of Present illness Narrative* Sherri Garcia, INTERVENTIONAL RADIOLOGY RN-INSURANCE EXAMINER - 04/24/2025 10:30 AM EDTAssociated Order(s): Debridement [...] a 59 y.o. male who present to [facility] for evaluation of 1 ulcer(s) on theright plantar midfoot. Patient established with wound clinic 03/28/2025. Current wound care includes: Vashe soak, cover with Xeroform, secure with roll gauze. Patient is wearing a right tennis shoe, Patient presents with a prosthetic of the left foot. 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. Patient was seen in the emergency room [...] notes. Patient Active Problem List Diagnosis Sepsis ([facility]) Diabetic ulcer of right midfoot associated with type 2 diabetes mellitus, with muscle involvement without evidence of necrosis ([facility]) Chronic osteomyelitis of left foot with draining sinus ([facility]) Wound, open, foot with complication, left, initial encounter Charcot's joint of foot, left Diabetes mellitus ([facility]) Hyperlipidemia Osteomyelitis of left foot ([facility]) Ulcer of right foot with fat layer exposed ([facility]) History of transmetatarsal amputation of right foot ([facility]) 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 ([facility]) Unstable ankle, right Past Medical History: Diagnosis Date Acid reflux Anemia Arthritis Cataract right lens implant Charcot's joint 02/2021 left foot Chronic osteomyelitis of foot ([facility]) 02/2021 left/with draining sinus Dental disease poor repair Diabetes mellitus type 2, controlled ([facility]) 1999 Hyperlipidemia Hypertension PICC (peripherally inserted central catheter) flush 02/2021 Visual impairment glasses Past Surgical History: Procedure Laterality Date AMPUTATION SYMES LOWER EXTREMITY Left 04/18/2021 Performed by Chan Brooke DPM at [facility] AMPUTATION TOEMID FOOT OSTEOTOMY ACHILLES TENOTOMY Left 02/07/2021 Performed by Chan Brooke DPM at [facility] ASPIRATION BONE MARROW BIOPSY BONE MARROW (BONE BIOPSY) Left 03/24/2021 Performed by Chan Brooke DPM at [facility] CLOSURE WOUND LOWER EXTREMITY (DELAYED PRIMARY CLOSURE) Left 03/24/2021 Performed by Chan Brooke DPM at [facility] DEBRIDEMENT FOOT/ANKLE Left 02/07/2021 Performed by Chan Brooke DPM at [facility] EXOSTECTOMY FOOT Right 09/01/2021 Performed by Chan Brooke DPM at [facility] PHACO KELMAN I IMPLANT INTRAOCULAR LENS Right 12/28/2019 Performed by Debra Trejo MD at [facility] REMOVAL HARDWARE FOOT/TOE, AND REMOVAL ANTIBIOTIC SPACER Left 03/24/2021 Performed by Chan Brooke DPM at [facility] SURGERY TONSILLECTOMY as child Social Drivers of Health Food Insecurity: No Food Insecurity (03/04/2025) Hunger Screening Food Insecurity - Worry: Never True Food Insecurity - Inability: Never True Housing Instability: Low Risk (01/06/2024) Received from [facility] Housing Stability Vital Sign Unable to Pay for Housing in the Last Year: No Number of Places Lived in the Last Year: 1 Unstable Housing in the Last Year: No Transportation Needs: Unmet Transportation Needs (01/06/2024) Received from [facility] PRAPARE - Transportation Lack of Transportation (Medical): Yes Lack of Transportation (Non-Medical): Yes Utility Difficulties: Not on file Interpersonal Safety: Unknown (01/13/2024) Received from [facility] [place] Safety & Environment Fear of Current or Ex-Partner: Not on file Emotionally Abused: Not on file Physically Abused: Not on file Sexually Abused: Not on file Physically or Sexually Abused: Not on file Financial Resource Strain: Low Risk (01/06/2024) Received from [facility] Overall Financial Resource Strain (CARDIA) Difficulty of Paying Living Expenses: Not hard at all Childcare: Low Risk (02/07/2021) Childcare Childcare: No Employment: Low Risk (02/07/2021) Employment Employment: No Purpose - Life: Low Risk (02/07/2021) Purpose - Life Purpose and direction in life: Agree Depression: Not at risk (03/13/2024) Received from [facility] PHQ-2 Patient Health Questionnaire-2 Score: 0 Alcohol Use: Not At Risk (01/06/2024) Received from [facility] AUDIT-C Frequency of Alcohol Consumption: Monthly or less Average Number of Drinks: Patient does not drink Frequency of Binge Drinking: Never Tobacco Use: Low Risk (04/11/2025) Patient History Smoking Tobacco Use: Never Smokeless Tobacco Use: Never Passive Exposure: Not on file Social Connections: Socially Isolated (01/06/2024) Received from [facility] Social Connection and Isolation Panel [NHANES] Frequency of Communication with Friends and Family: Never Frequency of Social Gatherings with Friends and Family: Never Attends Mosque Services: Never Active Member of Clubs or Organizations: Yes Attends Club or Organization Meetings: Never Marital Status: Physical Activity: Inactive (01/06/2024) Received from [facility] Exercise Vital Sign Days of Exercise per Week: 0 days Minutes of Exercise per Session: 0 min Stress: Stress Concern Present (01/06/2024) Received from [facility] [place] of Occupational Health - Occupational Stress Questionnaire [...] debridement Post debridement 04/24/25 1100 Site Assessment [place];Red 04/24/25 1100 Debi-wound Assessment Callous;Dry 04/24/25 1100 [...] Risks discussed: Yes Debridement Details: Performed by: FLY FINISHER Type: Sharp Level: Subcutaneous Tissue, Devitalized tissue [...] short term goal is wound compliance. Our retirement goal is wound closure. The patient was [...] CWS, NAVNEET [facility] [facility]:[phone] SCOTT Vaughn 03/28/25 1311 SCOTT Vaughn 03/28/25 1619 SCOTT Vaughn 04/11/25 1218 SCOTT Vaughn 04/24/25 1202 documented in this encounterCentral Vermont Medical CenterMedalogix [id number] Instructions* Patient Instructions* Sulma Humphreys RN - [...] Description small Serosanginous yellow documented in this encounterWVUMedicine [facility]05-30-2025 Nurse Note* Robbin Conti RN - 04/20/2025 11:02 AM EDT 1102 Spoke to patient to give procedure day instructions. Patient states he was told it was denied . Attempted to get clarification, but was unable to. Phone number to scheduling office provided to patient so that he can tell them the same thing I was told. No instructions given. [facility]05-30-2025 Nurse Note* Robbin Conti RN - 04/20/2025 11:02 AM EDT 1102 Spoke to patient to give procedure day instructions. Patient states he was told it was denied . Attempted to get clarification, but was unable to. Phone number to scheduling office provided to patient so that he can tell them the same thing I was told. No instructions given. documented in this encounterChildren'S Hospital [facility] [place]05-28-2025 Telephone encounter Note * Telephone Encounter - Tamara Goncalves RN - 04/18/2025 3:21 PM EDT G-POEM for date of service 04/25/2025. Appeal with all information including letter, study, JAMIN notes, GES result, EGG result, EGD result,CT result, faxed to [employer]Appe[employer] Dept at fax [phone] with confirmation. Appeal also mailed out to [employer]Appeals Dept) to the address provided. Copy placed in shared clinical office filing cabinet. [facility] Work Phone: [phone] 211-342605-28-2025 Miscellaneous Notes* Telephone Encounter - Tamara Goncalves RN - 04/18/2025 3:21 PM EDT G-POEM for date of service 04/25/2025. Appeal with all information including letter, study, JAMIN notes, GES result, EGG result, EGD result,CT result, faxed to [employer] Dept at fax [phone] with confirmation. Appeal also mailed out to [employer]/Appeals Dept) to the address provided. Copy placed in shared clinical office filing cabinet. documented in this encounterChildren'S Hospital [facility] [place]05-21-2025 History of Present illness Narrative* Sherri Garcia, INTERVENTIONAL RADIOLOGY RN-INSURANCE EXAMINER - 04/11/2025 10:40 AM EDTAssociated Order(s): Debridement Post-Procedure Diagnose(s): Diabetic ulcer of right midfoot associated with type 2 diabetes mellitus, with muscle involvement without evidence of necrosis ([facility]) Images from the original note were not included. Wound Care Progress Note Patient: More Kingsley Jr. Date of : 1965 Chief Complaint: Right foot ulcer, follow up Subjective/HPI: More is a 59 y.o. male who present to [facility] for evaluation of 1 ulcer(s) on theright plantar midfoot. Patient established with wound clinic 03/28/2025. Current wound care includes: Vashe soak, cover with Xeroform, secure with roll gauze. Patient is wearing a right Darco off-loading shoe, Patient presents with a prosthetic of the left foot. Patient states he has been to Dr. Eric Stephenson, podiatry, in [facility]. Patient was seen in the emergency room [...] notes. Patient Active Problem List Diagnosis Sepsis ([facility]) Diabetic ulcer of right midfoot associated with type 2 diabetes mellitus, with muscle involvement without evidence of necrosis ([facility]) Chronic osteomyelitis of left foot with draining sinus ([facility]) Wound, open, foot with complication, left, initial encounter Charcot's joint of foot, left Diabetes mellitus ([facility]) Hyperlipidemia Osteomyelitis of left foot ([facility]) Ulcer of right foot with fat layer exposed ([facility]) History of transmetatarsal amputation of right foot ([facility]) 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 ([facility]) Unstable ankle, right Past Medical History: Diagnosis Date Acid reflux Anemia Arthritis Cataract right lens implant Charcot's joint 02/2021 left foot Chronic osteomyelitis of foot ([facility]) 02/2021 left/with draining sinus Dental disease poor repair Diabetes mellitus type 2, controlled ([facility]) 1999 Hyperlipidemia Hypertension PICC (peripherally inserted central catheter) flush 02/2021 Visual impairment glasses Past Surgical History: Procedure Laterality Date AMPUTATION SYMES LOWER EXTREMITY Left 04/18/2021 Performed by Chan Brooke DPM at [facility] AMPUTATION TOEMID FOOT OSTEOTOMY ACHILLES TENOTOMY Left 02/07/2021 Performed by Chan Brooke DPM at [facility] ASPIRATION BONE MARROW BIOPSY BONE MARROW (BONE BIOPSY) Left 03/24/2021 Performed by Chan Brooke DPM at [facility] CLOSURE WOUND LOWER EXTREMITY (DELAYED PRIMARY CLOSURE) Left 03/24/2021 Performed by Chan Brooke DPM at [facility] DEBRIDEMENT FOOT/ANKLE Left 02/07/2021 Performed by Chan Brooke DPM at [facility] EXOSTECTOMY FOOT Right 09/01/2021 Performed by Chan Brooke DPM at [facility] PHACO KELMAN I IMPLANT INTRAOCULAR LENS Right 12/28/2019 Performed by Debra Trejo MD at [facility] REMOVAL HARDWARE FOOT/TOE, AND REMOVAL ANTIBIOTIC SPACER Left 03/24/2021 Performed by Chan Brooke DPM at [facility] TONSILLECTOMY as child Social Drivers of Health Food Insecurity: No Food Insecurity (03/04/2025) Hunger Screening Food Insecurity - Worry: Never True Food Insecurity - Inability: Never True Housing Instability: Low Risk (01/06/2024) Received from [facility] Housing Stability Vital Sign Unable to Pay for Housing in the Last Year: No Number of Places Lived in the Last Year: 1 Unstable Housing in the Last Year: No Transportation Needs: Unmet Transportation Needs (01/06/2024) Received from [facility] PRAPARE - Transportation Lack of Transportation (Medical): Yes Lack of Transportation (Non-Medical): Yes Utility Difficulties: Not on file Interpersonal Safety: Unknown (01/13/2024) Received from [facility] [place] Safety & Environment Fear of Current or Ex-Partner: Not on file Emotionally Abused: Not on file Physically Abused: Not on file Sexually Abused: Not on file Physically or Sexually Abused: Not on file Financial Resource Strain: Low Risk (01/06/2024) Received from [facility] Overall Financial Resource Strain (CARDIA) Difficulty of Paying Living Expenses: Not hard at all Childcare: Low Risk (02/07/2021) Childcare Childcare: No Employment: Low Risk (02/07/2021) Employment Employment: No Purpose - Life: Low Risk (02/07/2021) Purpose - Life Purpose and direction in life: Agree Depression: Not at risk (03/13/2024) Received from [facility] PHQ-2 Patient Health Questionnaire-2 Score: 0 Alcohol Use: Not At Risk (01/06/2024) Received from [facility] AUDIT-C Frequency of Alcohol Consumption: Monthly or less Average Number of Drinks: Patient does not drink Frequency of Binge Drinking: Never Tobacco Use: Low Risk (03/28/2025) Patient History Smoking Tobacco Use: Never Smokeless Tobacco Use: Never Passive Exposure: Not on file Social Connections: Socially Isolated (01/06/2024) Received from [facility] Social Connection and Isolation Panel [NHANES] Frequency of Communication with Friends and Family: Never Frequency of Social Gatherings with Friends and Family: Never Attends Mosque Services: Never Active Member of Clubs or Organizations: Yes Attends Club or Organization Meetings: Never Marital Status: Physical Activity: Inactive (01/06/2024) Received from [facility] Exercise Vital Sign Days of Exercise per Week: 0 days Minutes of Exercise per Session: 0 min Stress: Stress Concern Present (01/06/2024) Received from [facility] [place] of Occupational Health - Occupational Stress Questionnaire [...] debridement Post debridement 04/11/25 1053 Site Assessment Moist;[place];Yellow;Red 04/11/25 1041 Debi-wound Assessment Dry;Callous;Maceration 04/11/25 1041 [...] Risks discussed: Yes Debridement Details: Performed by: FLY FINISHER Type: Sharp Level: Subcutaneous Tissue, Devitalized tissue [...] with muscle involvement without evidence of necrosis ([facility]) 2. History of transmetatarsal amputation of right foot ([facility]) 3. 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 ([facility]) 4. Wound, open, foot with [...] roll gauze Off-load with a cut out [place] foam pad Change daily Renewed prescription written for Augmentin 875-902 mg b.i.d. for 10 days, dispensed 20. Referral to Dr. Stephenson's office for off-loading [place] boot fitting Patient instructed in diabetic foot ulcer care to right and foot. Patient verbalize ability to perform wound care. Patient verbalized understanding. We will continue to follow closely to avoid any complications or infection. Our short term goal is wound compliance. 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 The patient was [...] ALBARO, NAVNEET [employer] [facility]:[phone] SCOTT Vaughn 03/28/25 1311 SCOTT Vaughn 03/28/25 1619 SCOTT Vaughn 04/11/25 1218 documented in this encounterCentral Vermont Medical CenterHuayi Brothers [facility]05-21-2025 Instructions* Patient Instructions* Seema Hassan RN - [...] Description small Serosanginous yellow documented in this encounterKindred Hospital Daytonboosk [facility]-Ann [id number] NoteHNO ID: [id number] Author: JEROME DEL TORO, DO Service: ? Author Type: Physician Type: Progress Notes Filed: 04/10/2025 10:33 Note Text: [facility] [place] Gastroparesis/Dysmotility Consultation SERVICE DATE: 04/10/2025 SERVICE TIME: 10:04 AM PRIMARY CARE PHYSICIAN: No primary care provider on file. Imad Asaad [address] [address] My final recommendations will be communicated back [...] obtained. NAME: More Kingsley Jr. CLINIC NO: [id number] DATE OF SERVICE: April 10, 2025 This [...] of 0 to (more content not included)... [facility]05-20-2025 NoteHNO ID: [id number] Author: ANDREY ESTRELLA MA Service: ? Author Type: Hall Manager Type: Progress Notes Filed: 04/10/2025 10:33 Note Text: What is the reason for your visit today? Consult /empties Who is your referring physician? Tracy Yoon Are you having poor oral intake? YES Have you had unintentional weight loss of 15 lbs/7 Kg in the last 3-6 months? NO Bowels: regular Wound: clean AND dry Temperature: No Drains: [facility]05-20-2025 NoteHNO ID: [id number] Author: COURTNEY GLOVER PSYD Service: ? 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 He denies any significant psychiatric history and [...] Tends to sleep on his side. 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 Author [...] Medications - Does the patient see a body painter for chronic pain?No - Is the [...] - Has the patient met with a black top raker for diet recommendations with Gastroparesis? No - [...] No evidence of an (more content not included)...[facility]05-15-2025 Telephone encounter Note* Telephone Encounter - Shena [...] back Shena Dent RN April 05, 2025 [facility]05-15-2025 Miscellaneous Notes* Telephone Encounter - Shena Dent [...] RN April 05, 2025 documented in this encounterChildren'S Hospital [facility] [place]05-07-2025 History of Present illness Narrative* Sherri Gurvinder Garcia, INTERVENTIONAL RADIOLOGY RN-INSURANCE EXAMINER - 03/28/2025 10:40 AM EDTAssociated Order(s): Debridement Post-Procedure Diagnose(s): Diabetic ulcer of right midfoot associated with type 2 diabetes mellitus, with muscle involvement without evidence of necrosis ([facility]); History of transmetatarsal amputation of right foot ([facility]) Images from the original note were not included. Wound Care Progress Note Patient: More Kingsley . Date of : 1965 Chief Complaint: Right foot ulcer New patient evaluation Subjective/HPI: More is a 59 y.o. male who present to [facility] for evaluation of 1 ulcer(s) [...] AUREUS METHICILLIN RESISTANT VARIANT Abnormal Resulting Agency [facility] Today's reported Blood sugar: [...] notes. Patient Active Problem List Diagnosis Sepsis ([facility]) Diabetic ulcer of left midfoot associated with type 2 diabetes mellitus, with necrosis of bone ([facility]) Chronic osteomyelitis of left foot with draining sinus ([facility]) Wound, open, foot with complication, left, initial encounter Charcot's joint of foot, left Diabetes mellitus ([facility]) Hyperlipidemia Osteomyelitis of left foot ([facility]) Ulcer of right foot with fat layer exposed ([facility]) History of transmetatarsal amputation of right foot ([facility]) Past Medical History: Diagnosis Date Acid reflux Anemia Arthritis Cataract right lens implant Charcot's joint 02/2021 left foot Chronic osteomyelitis of foot ([facility]) 02/2021 left/with draining sinus Dental disease poor repair Diabetes mellitus type 2, controlled ([facility]) 1999 Hyperlipidemia Hypertension PICC (peripherally inserted central catheter) flush 02/2021 Visual impairment glasses Past Surgical History: Procedure Laterality Date AMPUTATION SYMES LOWER EXTREMITY Left 04/18/2021 Performed by Chan Brooke DPM at [facility] AMPUTATION TOEMID FOOT OSTEOTOMY ACHILLES TENOTOMY Left 02/07/2021 Performed by Chan Brooke DPM at [facility] ASPIRATION BONE MARROW BIOPSY BONE MARROW (BONE BIOPSY) Left 03/24/2021 Performed by Chan Brooke DPM at [facility] CLOSURE WOUND LOWER EXTREMITY (DELAYED PRIMARY CLOSURE) Left 03/24/2021 Performed by Chan Brooke DPM at [facility] DEBRIDEMENT FOOT/ANKLE Left 02/07/2021 Performed by Chan Brooke DPM at [facility] EXOSTECTOMY FOOT Right 09/01/2021 Performed by Chan Brooke DPM at [facility] PHACO KELMAN I IMPLANT INTRAOCULAR LENS Right 12/28/2019 Performed by Debra Trejo MD at [facility] REMOVAL HARDWARE FOOT/TOE, AND REMOVAL ANTIBIOTIC SPACER Left 03/24/2021 Performed by Chan Brooke DPM at [facility] SURGERY TONSILLECTOMY as child Social Drivers of Health Food Insecurity: No Food Insecurity (03/04/2025) Hunger Screening Food Insecurity - Worry: Never True Food Insecurity - Inability: Never True Housing Instability: Low Risk (01/06/2024) Received from [facility] Housing Stability Vital Sign Unable to Pay for Housing in the Last Year: No Number of Places Lived in the Last Year: 1 Unstable Housing in the Last Year: No Transportation Needs: Unmet Transportation Needs (01/06/2024) Received from [facility] PRAPARE - Transportation Lack of Transportation (Medical): Yes Lack of Transportation (Non-Medical): Yes Utility Difficulties: Not on file Interpersonal Safety: Unknown (01/13/2024) Received from [facility] [place] Safety & Environment Fear of Current or Ex-Partner: Not on file Emotionally Abused: Not on file Physically Abused: Not on file Sexually Abused: Not on file Physically or Sexually Abused: Not on file Financial Resource Strain: Low Risk (01/06/2024) Received from [facility] Overall Financial Resource Strain (CARDIA) Difficulty of Paying Living Expenses: Not hard at all Childcare: Low Risk (02/07/2021) Childcare Childcare: No Employment: Low Risk (02/07/2021) Employment Employment: No Purpose - Life: Low Risk (02/07/2021) Purpose - Life Purpose and direction in life: Agree Depression: Not at risk (03/13/2024) Received from [facility] PHQ-2 Patient Health Questionnaire-2 Score: 0 Alcohol Use: Not At Risk (01/06/2024) Received from [facility] AUDIT-C Frequency of Alcohol Consumption: Monthly or less Average Number of Drinks: Patient does not drink Frequency of Binge Drinking: Never Tobacco Use: Low Risk (03/04/2025) Patient History Smoking Tobacco Use: Never Smokeless Tobacco Use: Never Passive Exposure: Not on file Social Connections: Socially Isolated (01/06/2024) Received from [facility] Social Connection and Isolation Panel [NHANES] Frequency of Communication with Friends and Family: Never Frequency of Social Gatherings with Friends and Family: Never Attends Mosque Services: Never Active Member of Clubs or Organizations: Yes Attends Club or Organization Meetings: Never Marital Status: Physical Activity: Inactive (01/06/2024) Received from [facility] Exercise Vital Sign Days of Exercise per Week: 0 days Minutes of Exercise per Session: 0 min Stress: Stress Concern Present (01/06/2024) Received from [facility] [place] of Occupational Health - Occupational Stress Questionnaire [...] Risks discussed: Yes Debridement Details: Performed by: FLY FINISHER Type: Sharp Level: Subcutaneous Tissue, Devitalized tissue [...] with muscle involvement without evidence of necrosis ([facility]) 2. History of transmetatarsal amputation of right foot ([facility]) 3. Visit for wound check [...] roll gauze Off-load with a cut out [place] foam pad Change daily Discussed various offloading [...] short term goal is wound compliance. Our retirement goal is wound closure. The patient was [...] CWS, COCN [facility]:[phone] SCOTT Vaughn 03/28/25 1311 SCOTT Vaughn 03/28/25 1619 documented in this encounterWVUMedicine Harrison [facility] Hospital05-07-2025 Instructions* Patient Instructions* Seema Hassan RN [...] Description moderate Serosanginous yellow documented in this encounterWVUMedicine Harrison Community Hospital12-31-2024 Telephone encounter Note* Telephone Encounter - Leonard Cadet - 11/21/2024 3:[address] Yoon's office phones requesting office note from October 24 When completed, please fax to [phone] Leonard Cadet [facility]12-31-2024 Miscellaneous Notes* Telephone Encounter - Leonard Cadet - 11/21/2024 3:[address] Yoon's office phones requesting office note from October 24 When completed, please fax to [phone] Leonard Cadet documented in this encounterChildren'S Hospital Of [facility]12-03-2024 NoteHNO ID: [id number] Author: DAVIDA PRICE MD Service: ? Author Type: Physician Type: Progress Notes Filed: 05/20/2025 17:03 Note Text: Summary: Patient not seen Patient was not seen. Miscommunication between my office and the patient. I was out of the office. Will be rescheduled.[facility]12-03-2024 History of Present illness Narrative* Davida Price MD - 10/24/2024 4:57 PM ESTSummary: Patient not seen Patient was not seen. Miscommunication between my office and the patient. I was out of the office. Will be rescheduled. documented in this encounterChildren'S [facility]08-01-2024 Telephone encounter Note * Telephone Encounter - Deonna Patel - 06/22/2024 6:55 AM EDT Gp ref and ges in scanned docs Needs registration [facility]08-01-2024 Miscellaneous Notes* Telephone Encounter - Deonna Patel - 06/22/2024 6:55 AM EDT Gp ref and ges in scanned docs Needs registration documented in this encounterChildren'S Hospital [facility] [place]06-18-2024 Evaluation note* Author Tracy Yoon [facility] CenterAuthoredJunjacques 2023 [id number] man with recurrent nausea and vomiting came today for follow-up + Recurrent nausea and vomiting associated with abdominal pain. EGD on 02/03/2024 showed gastritis, gastric biopsies were negative for H. pylori, duodenal biopsies were negative for celiac disease. Symptoms are not responsive to PPI + Uncontrolled diabetes Will arrange for CT abdomen/pelvis. Will arrange for gastric emptying study. [facility] Work Phone: [phone] Procedure noteMetrohealth [facility] Center01-04-2024 Evaluation note* Encounter Date Diagnosis [...] is to continue with famotine and pantoprazole [employer] Other 12-18-2023 Evaluation note* Encounter Date Diagnosis [...] - L90.9) recommend f/u with Dr. Stephenson [employer] Other 10-04-2023 Evaluation note* Encounter Date Diagnosis [...] map diet Pt RTO in 3 months [employer] Other 04-04-2023 Evaluation note* Encounter Date Diagnosis [...] Feb,ERD (gastroesophageal reflux disease) (ICD-10 - K21.9) [employer] Other 10-04-2022 Evaluation note* Encounter Date Diagnosis Assessment Notes Treatment Notes Treatment Clinical Notes Aug, GERD (gastroesophageal reflux di sease) (ICD-10 - K21.9) Stop Pantoprazole Start Omeprazole 40mg bid, 30 minutes prior to the first meal and last meal of the day. Follow up in 6 months Aug,Nausea & vomiting (ICD-10 - R11.2) [facility] [employer] Other Chief complaint+Reason for visit Narrative* Chief Complaint Referral Cheng mayberry DM 6 week follow upReason for VisitNausea and vomiting [facility] Work Phone: Evaluation noteNo InformationNortLifecare [facility] [employer] Other Evaluation note* Diagnosis Onset Date Resolution Status Nausea and vomiting acute [facility] Work Phone: Evaluation note* Diagnosis Diabetic ulcer of right midfoot associated with type 2 diabetes mellitus, with muscle involvement without evidence of necrosis ([facility]-H[facility])- Primary History of transmetatarsal amputation of right foot ([facility]) Visit for wound check [facility] Diagnosis Diabetic ulcer of right midfoot associated with type 2 diabetes mellitus, with muscle involvement without evidence of necrosis ([facility]-H[facility])- Primary History of transmetatarsal amputation of right foot ([facility]-HCC) 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 ([facility]) Wound, open, foot with complication, left, initial encounter Unstable ankle, right [facility] Diagnosis Benign essential HTN- Primary Type 2 diabetes mellitus with foot ulcer, with long-term current use of insulin (CMS-HCC) Chronic midline low back pain without sciatica Fatty liver disease, nonalcoholic Visit for wound check Hyperglycemia Other abnormal glucose Gastroesophageal reflux disease, unspecified whether esophagitis present [facility] Diagnosis Diabetic ulcer of right midfoot associated with type 2 diabetes mellitus, with muscle involvement without evidence of necrosis ([facility])- Primary 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 ([facility]) [facility] Diagnosis Benign essential HTN- Primary [...] Fatigue, unspecified type [facility] Diagnosis Benign essential HTN- Primary [...] of insulin (CMS-HCC) [facility] Diagnosis Benign essential HTN- Primary [...] insulin (CMS-HCC)- Primary [facility] Diagnosis Gastroparesis- Primary [facility] noteNo assessment information availableMemorial [facility] Work Phone: Evaluation note* Diagnosis Benign essential [...] current use of insulin ([facility]) Benign essential HTN Gastroesophageal reflux disease, unspecified whether esophagitis present Chronic midline low back pain without sciatica Encounter for screening for malignant neoplasm of prostate Fatigue, unspecified type Ulcer of right foot with fat layer exposed ([facility])- Primary Type 2 diabetes mellitus with foot ulcer, with long-term current use of insulin ([facility]) Hyperlipidemia, unspecified hyperlipidemia type Gastroesophageal reflux disease, unspecified whether esophagitis present Peripheral artery disease Type 2 diabetes mellitus with foot ulcer, with long-term current use of insulin ([facility]) [facility] Diagnosis Benign essential HTN- Primary Type 2 diabetes mellitus with foot ulcer, with long-term current use of insulin ([facility]) Chronic midline low back pain without sciatica Fatty liver disease, nonalcoholic Visit for wound check Hyperglycemia Other abnormal glucose Gastroesophageal reflux disease, unspecified whether esophagitis present Type 2 diabetes mellitus with foot ulcer, with long-term current use of insulin ([facility]) Benign essential HTN Gastroesophageal reflux disease, unspecified whether esophagitis present Chronic midline low back pain without sciatica Encounter for screening for malignant neoplasm of prostate Fatigue, unspecified type Ulcer of right foot with fat layer exposed ([facility])- Primary Type 2 diabetes mellitus with foot ulcer, with long-term current use of insulin ([facility]) Hyperlipidemia, unspecified hyperlipidemia type Gastroesophageal reflux disease, unspecified whether esophagitis present Peripheral artery disease documented [facility] Diagnosis Benign essential HTN- Primary Type 2 diabetes mellitus with foot ulcer, with long-term current use of insulin ([facility]) Chronic midline low back pain without sciatica Fatty liver disease, nonalcoholic Visit for wound check Hyperglycemia Other abnormal glucose Gastroesophageal reflux disease, unspecified whether esophagitis present Type 2 diabetes mellitus with foot ulcer, with long-term current use of insulin ([facility]) Benign essential HTN Gastroesophageal reflux disease, unspecified whether esophagitis present Chronic midline low back pain without sciatica Encounter for screening for malignant neoplasm of prostate Fatigue, unspecified type Ulcer of right foot with fat layer exposed ([facility])- Primary Type 2 diabetes mellitus with foot ulcer, with long-term current use of insulin ([facility]) Hyperlipidemia, unspecified hyperlipidemia type Gastroesophageal reflux disease, unspecified whether esophagitis present Peripheral artery disease Type 2 diabetes mellitus with other circulatory complication, with long-term current use of insulin([facility])- Primary [facility] Diagnosis Benign essential HTN- Primary Type 2 diabetes mellitus with foot ulcer, with long-term current use of insulin ([facility]) Chronic midline low back pain without sciatica Fatty liver disease, nonalcoholic Visit for wound check Hyperglycemia Other abnormal glucose Gastroesophageal reflux disease, unspecified whether esophagitis present Type 2 diabetes mellitus with foot ulcer, with long-term current use of insulin ([facility]) Benign essential HTN Gastroesophageal reflux disease, unspecified whether esophagitis present Chronic midline low back pain without sciatica Encounter for screening for malignant neoplasm of prostate Fatigue, unspecified type Ulcer of right foot with fat layer exposed ([facility])- Primary Type 2 diabetes mellitus with foot ulcer, with long-term current use of insulin ([facility]) Hyperlipidemia, unspecified hyperlipidemia type Gastroesophageal reflux disease, unspecified whether esophagitis present Peripheral artery disease Type 2 diabetes mellitus with other circulatory complication, with long-term current use of insulin([facility])- Primary Type 2 diabetes mellitus with foot ulcer, with long-term current use of insulin ([facility]) Benign essential HTN Mixed hyperlipidemia due to type 2 diabetes mellitus ([facility]) Gastroesophageal reflux disease, unspecified whether esophagitis present Chronic midline low back pain without sciatica Ulcer of right foot with fat layer exposed ([facility]) documented [facility] Diagnosis Benign essential HTN- Primary Type 2 diabetes mellitus with foot ulcer, with long-term current use of insulin ([facility]) Chronic midline low back pain without sciatica Fatty liver disease, nonalcoholic Visit for wound check Hyperglycemia Other abnormal glucose Gastroesophageal reflux disease, unspecified whether esophagitis present Type 2 diabetes mellitus with foot ulcer, with long-term current use of insulin ([facility]) Benign essential HTN Gastroesophageal reflux disease, unspecified whether esophagitis present Chronic midline low back pain without sciatica Encounter for screening for malignant neoplasm of prostate Fatigue, unspecified type Ulcer of right foot with fat layer exposed ([facility])- Primary Type 2 diabetes mellitus with foot ulcer, with long-term current use of insulin ([facility]) Hyperlipidemia, unspecified hyperlipidemia type Gastroesophageal reflux disease, unspecified whether esophagitis present Peripheral artery disease 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 ([facility]) [E11.628, L84]- Primary documented [facility] encounter [facility] Diagnosis Benign essential HTN- Primary Type 2 diabetes mellitus with foot ulcer, with long-term current use of insulin ([facility]) Chronic midline low back pain without sciatica Fatty liver disease, nonalcoholic Visit for wound check Hyperglycemia Other abnormal glucose Gastroesophageal reflux disease, unspecified whether esophagitis present Type 2 diabetes mellitus with foot ulcer, with long-term current use of insulin ([facility]) Benign essential HTN Gastroesophageal reflux disease, unspecified whether esophagitis present Chronic midline low back pain without sciatica Encounter for screening for malignant neoplasm of prostate Fatigue, unspecified type Ulcer of right foot with fat layer exposed ([facility])- Primary Type 2 diabetes mellitus with foot ulcer, with long-term current use of insulin ([facility]) Hyperlipidemia, unspecified hyperlipidemia type Gastroesophageal reflux disease, unspecified whether esophagitis present Peripheral artery disease Ulcer of right foot with fat layer exposed ([facility])- Primary documented [facility] encounter [facility] Diagnosis Benign essential HTN- Primary Type 2 diabetes mellitus with foot ulcer, with long-term current use of insulin ([facility]) Chronic midline low back pain without sciatica Fatty liver disease, nonalcoholic Visit for wound check Hyperglycemia Other abnormal glucose Gastroesophageal reflux disease, unspecified whether esophagitis present Type 2 diabetes mellitus with foot ulcer, with long-term current use of insulin ([facility]) Benign essential HTN Gastroesophageal reflux disease, unspecified whether esophagitis present Chronic midline low back pain without sciatica Encounter for screening for malignant neoplasm of prostate Fatigue, unspecified type Ulcer of right foot with fat layer exposed ([facility])- Primary Type 2 diabetes mellitus with foot ulcer, with long-term current use of insulin ([facility]) Hyperlipidemia, unspecified hyperlipidemia type Gastroesophageal reflux disease, unspecified whether esophagitis present Peripheral artery disease Gastroesophageal reflux disease, unspecified whether esophagitis present- Primary Type 2 diabetes mellitus with foot ulcer, with long-term current use of insulin ([facility]) Benign essential HTN Chronic midline low back pain without sciatica Mixed hyperlipidemia due to type 2 diabetes mellitus ([facility]) documented in this encounter [facility] Author Tracy [facility] February 03, 2024 2:08pmNote Date/TimeMarch 2023 2:08[place] [address] Gastroenterology H&P Signed Patient: More Kingsley MR#: [id number] : 1965 Acct:[id number] Age/Sex: 58 / M Adm Date: 4 Loc: Room: Type: [facility] Attending Dr: Tracy Yoon MD Copies to: [...] <Electronically signed by Tracy Yoon MD> 02/03/24 1401 [facility] Work Phone: History general Narrative - Reported* Type Description Date Medical History high blood pressure Medical Historyhigh cholesterolMedical Historydiabetes mallitusSurgical History toes removed on right footSurgical Historyleft footSurgical Historyright eye [facility] [employer] Other History general Narrative - Reported* Type Description Date Medical History high blood pressure Medical Historyhigh cholesterolMedical Historydiabetes mellitusMedical History peripheral neuropathyMedical Historyfatty liverMedical Historyretinopathy Surgical Historytoes removed on right footSurgical Historyleft footSurgical Historyright eyeHospitalization HistoryFoot [employer] Other InstructionsNot on filedocumented in this encounter [...] for referral (narrative)No reason for referral information availableMemorial Health System Work Phone: Reason for visit Narrativereferral Cheng Staples, New patient Type 2IDDM apt with [employer] [employer]IOLOG[employer] RN, EMPLOYMENT EVALUATOR/CASE MANAGER-C, BC-ADMNort [employer] Other Summary Purpose Family History No Family [...] 8:18 PMCode StatusDate ActivatedDate InactivatedCommentsFull Code - Fduxbxosfg64/15/2020 7:21 PM11/21/2020 10:03 PMTypeDate RecordedPatient RepresentativeExplanationAdvance Directives and Living Will11/06/2020 8:18 PM Code StatusDate ActivatedDate InactivatedCommentsFull Code - Unverified 11/05/2020 7:21 PM11/21/2020 10:03 PMTypeDate RecordedPatient Front End Software Engineer ExplanationAdvance Directives and Living Will12/19/2020 8:18 PMTypeDate [...] retinopathy type (HCC) Palak Arora MD [address] [place] [address] Reason Eval and treat/ Food allergy testing. Diagnosis 1 Nausea & vomiting (R 11.2) Referral Organization [facility] Referring Provider First Name Amor Referring Provider Last Name Dichloe Referring Provider Specialty Gastroenter ology Referred Organization Unknown Facility Referred Provider Specialty Allergy/Immu nology Referral Priority Routine Reason DIABETES MANAGEMENT Diagnosis 1 Diabetes mellitus ty pe 2 with complications (E11.8) Referral Organization [facility] Referring Provider First Name Sebastián Referring [...] HOSPITALIST DISCHARGE SUMMARY Patient: More Kingsley Account: [id number] Admitted: 11/05/2020 Discharge Date/Time: 11/21/2020 Clinical Summary [...] Inpatient consult to Endocrinology Inpatient consult to Flight Attendant Inpatient consult to Dietitian Inpatient consult to [...] Discharge Diet: Oral nutrition supplements Tyree; Tyree [place] At dinner Oral nutrition supplements Tyree; Tyree [...] Physician(s) Family: Cheng Staples CNP, , Address: [address] [place] [id number] Follow Up: [facility] [address] [facility] [id number] Schedule an appointment as soon as possible for a visit in 2 week(s) Dr. Arabella [facility] Address: Servicing Counties: [facility] [place], [place], [place], [place], [place], [place], [facility] [phone] Patient instructions, including activity, were given to [...] sent through Care Everywhere. * Wound Check (Lithuanian) documented in this encounter History of Present [...] Problem: Secondary DM with DKA ([facility]) Active Problems: Type 2 diabetes mellitus with retinopathy of both eyes, with long-term current use of insulin ([facility]) * Joan Trejo LISW - 11/21/2020 12:27 PM EST SIMPLE DISCHARGE Date: 11/21/2020 Time: 12:27 PM Patient Name: More Kingsley Jr. Date of : 1965 Sex: Male Patient has him home vac on . He will get his last antibiotic dose early tonight before discharge. [place] will deliver antibiotics this evening to patient's home. [facility] will start care on11/23/2020 around 0900. [facility] RN will contact patient this evening to confirm time. Home care orderssent to Arturo at [facility]. He will contact this worker [...] More Kingsley Jr. Admit Date: MR #: [id number] : 1965 Physicians: Cheng Staples CNP (Family); No ref. provider found (Referring) Assessment: Patient with 1. Left foot abscess, with MSSA 2. Osteomyelitis with MSSA 3. Uncontrolled diabetes. 4. Abdominal pain. 5. Constipation. Plan. Continue patient on current therapyn. Continue patient on IV cefazolin. I reviewed labs, including cultures, with MSSA, and be strep. I appreciate compressor repairer evaluation. Patient needs incision and drainage of left foot abscess Dressing according to compressor repairer recommendation Endocrinology evaluation for adequate blood sugar [...] (NS), 0-150 mL/hr, Intravenous, PRN, Tanja Whitmore, [facility],PharmD, New Bag at 11/11/20 1615 [...] excoriations Musculoskeletal: No joint swelling, non tender INSIDE SALES REPRESENTATIVE: Awake, and Ox3 Wound: Foot with description [...] retained stool in the proximal colon and njrqh-yp-nvhokexq amount of retained stool in the distal [...] No tendon tear or tenosynovitis is seen. [facility]/[employer] Workstation ID: [id number] MR Foot Right With And Without Contrast Final Result 1. Prior forefoot resection. Cellulitis of the surgical stump is seen associated with small ulceration. 2. No abscess. 3. No MR signs of osteomyelitis. 4. Lxrg-bv-nanqnbjm mid/hindfoot osteoarthritis. 5. Remote sprains of the ATFL and deep fibers of the deltoid ligament, as above. [employer] Workstation ID: [id number] Foot Left 3+ [...] long-term current use of insulin ([facility]) Relevant Medications insulin glargine (LANTUS) [...] Arora MD - 11/20/2020 5:49 PM EST [facility] Medicine Inpatient Follow-up 11/20/2020 Palak Arora MD [facility] Patient: More Kingsley . Date of : [...] Q8H heparin (porcine) 5,000 Units Subcutaneous Q8H [facility] insulin glargine 25 Units Subcutaneous Nightly lispro insulin 0-15 Units Subcutaneous at bedtime insulin lispro 0-30 Units Subcutaneous Daily before lunch insulin lispro 0-30 Units Subcutaneous Before dinner [START ON 11/21/2020] insulin lispro 0-30 Units Subcutaneous QAM AC pantoprazole 40 mg Oral Daily sodium chloride (PF) 10 mL Intracatheter Q8H [facility] Results/Medications Reviewed 11/20/20 5:49 PM: Results from [...] of bed rail) Sit to Supine: Modified [place](HOB elevated) Skilled Intervention: Pt seated EOB ~11 [...] . Prior Level of Function Level of [place]: Independent with ADLs and functional transfers Lives [...] Date of : 1965 Sex: Male This pattern ruler received call back from [facility], agency able to accept patient and start care on WednesdayNovember 22. Joan oncology social worker updated. Abdoulaye Menjivar [facility] Disposition Regulatory Documentation: Medicare IM Regulatory Documentation Status: Signed Signed: Self * Joan Trejo LISW - 11/20/2020 10:35 AM EST DISCHARGE PLAN PROGRESS NOTE Date: 11/20/2020 Time: 10:35 AM Patient Name: More Kingsley Jr. Date of : 1965 Sex: Male [place] contacted this worker. Patient has medicare part [...] due to amount of wound vac drainage. [facility] Disposition Regulatory Documentation: Medicare IM Regulatory Documentation Status: Signed Signed: Self * Marvel Mcmillan MD - 11/20/2020 9:55 AM EST Patient ID: Patient Name: More Kingsley Jr. Admit Date: 11/05/2020 MR #: [id number] : 1965 Current location: [facility] Physicians: Cheng Staples CNP (Family); Dr. [...] CPM 11/14: Continue current insulin doses. Consult sap abap programmer for gastroparesis diet education. 11/18: CPM 11/19: CPM 11/20 Discharge on 5 H TID ac and 25 Lantus, plus SSI. Can restart metformin 1000 mg BID. [facility] 2. Education: Reviewed ABCs of [...] with IV ATB. Pt does live in [place], is willing to follow up in wound [...] More Kingsley Jr. Admit Date: MR #: [id number] : 1965 Physicians: Cheng Staples CNP (Family); No ref. provider found (Referring) Assessment: Patient with 1. Left foot abscess, with MSSA 2. Osteomyelitis with MSSA 3. Uncontrolled diabetes. 4. Abdominal pain. 5. Constipation. Plan. Continue patient on current therapyn. Continue patient on IV cefazolin. I reviewed labs, including cultures, with MSSA, and be strep. I appreciate compressor repairer evaluation. Patient needs incision and drainage of left foot abscess Dressing according to compressor repairer recommendation Endocrinology evaluation for adequate blood sugar [...] 0-30 Units, 0-30 Units, Subcutaneous, Before dinner, Mavrel Calero MD, 6 Units at 11/19/20 1648 [...] (NS), 0-150 mL/hr, Intravenous, PRN, Tanja Whitmore, [facility],PharmD, New Bag at 11/11/20 1615 [...] excoriations Musculoskeletal: No joint swelling, non tender INSIDE SALES REPRESENTATIVE: Awake, and Ox3 Wound: Foot with description [...] retained stool in the proximal colon and qltjc-vk-uhqvvjeb amount of retained stool in the distal [...] No tendon tear or tenosynovitis is seen. [facility]/[employer] Workstation ID: [id number] MR Foot Right With And Without Contrast Final Result 1. Prior forefoot resection. Cellulitis of the surgical stump is seen associated with small ulceration. 2. No abscess. 3. No MR signs of osteomyelitis. 4. Dybn-vo-hbssgqhw mid/hindfoot osteoarthritis. 5. Remote sprains of the ATFL and deep fibers of the deltoid ligament, as above. [facility]/[employer] Workstation ID: [id number] Foot Left 3+ [...] Problem: Secondary DM with DKA ([facility]) Active Problems: Type 2 diabetes mellitus with retinopathy of both eyes, with long-term current use of insulin ([facility]) * Joan Trejo LISW - 11/19/2020 3:16 PM EST This worker was advised to sent referral to [facility]. Referral faxed. Message left for [place]. * Joan Trejo LISW - 11/19/2020 2:31 [...] vac. Patient would like to go home. [facility] notified to check him home infusion benefits. Care coordination following. * Scarlett German - 11/19/2020 12:12 PM EST DISCHARGE PLAN PROGRESS NOTE Date: 11/19/2020 Time: 12:12 PM Patient Name: More Kingsley Jr. Date of : 1965 Sex: Male Spoke with pt regarding [facility], #1 choice [facility] ([phone]). Spoke with Seema and faxed free text to [phone] [facility] referral and asked for a return call as soon as possible. Pt discharged possibly tomorrow. 13:18 - Rec'd call from Seema with [facility] and they CANNOT accept pt due to lack of staffing. Will try # 2 - [facility] ([phone]). 13:21 - Called # 2& spoke to Racquel, Free text referral to fax [phone] @ 13:26. Informed Ranjana via secure chat. 15:25 - Called Alix and Paola said they never rec'd fax sent at 13:26. Spoke with Ranjana and she said to move on to [facility]'s 2 suggestions 1)[place] @ [phone]. I called and they have NO staff at this time to service [place]. Moved on to 2) [facility], ([phone]) spoke with Evette and she said I could fax the referral ([phone]) which I did at 15:42. Scarlett German [...] . Prior Level of Function Level of [place]: Independent with ADLs and functional transfers Lives [...] Kingsley Jr. Admit Date: 11/05/2020 MR #: [id number] : 1965 Current location: [facility] Physicians: Cheng Staples CNP (Family); Dr. [...] CPM 11/14: Continue current insulin doses. Consult sap abap programmer for gastroparesis diet education. 11/18: CPM 11/19: [...] by Olga CHAVEZ 208:39 AM * Palak rAora MD - 11/19/2020 8:34 AM EST [facility] Medicine Inpatient Follow-up 11/19/2020 Palak Arora MD [facility] Patient: More Kingsley . Date of : [...] More Kingsley Jr. Admit Date: MR #: [id number] : 1965 Physicians: Cheng Staples CNP (Family); No ref. provider found (Referring) Assessment: Patient with 1. Left foot abscess, with MSSA 2. Osteomyelitis with MSSA 3. Uncontrolled diabetes. 4. Abdominal pain. 5. Constipation. Plan. Continue patient on current therapyn. Continue patient on IV cefazolin. I reviewed labs, including cultures, with MSSA, and be strep. I appreciate compressor repairer evaluation. Patient needs incision and drainage of left foot abscess Dressing according to compressor repairer recommendation Endocrinology evaluation for adequate blood sugar [...] injection 5,000 Units, 5,000 Units, Subcutaneous, Q8H [facility], Chuyita Arias MD, Stopped at 11/18/20 0600 [...] Jean Farley MD, 1 tablet at 11/17/20 7456 pantoprazole (PROTONIX) EC tablet 40 mg, 40 mg, Oral, Daily, Chuyita Arisa MD, 40 mg at 11/18/20 0857 sodium chloride 0.9% (NS), 0-150 mL/hr, Intravenous, PRN, Tanja Whitmore, [facility],PharmD, New Bag at 11/11/20 1615 [...] retained stool in the proximal colon and nkrnv-jp-kezfneki amount of retained stool in the distal [...] No tendon tear or tenosynovitis is seen. MPH/[employer] Workstation ID: [id number] MR Foot Right With And Without Contrast Final Result 1. Prior forefoot resection. Cellulitis of the surgical stump is seen associated with small ulceration. 2. No abscess. 3. No MR signs of osteomyelitis. 4. Nfrb-hn-dwyrypnb mid/hindfoot osteoarthritis. 5. Remote sprains of the ATFL and deep fibers of the deltoid ligament, as above. MPH/[facility] Workstation ID: [id number] XR Foot Left 3+ [...] follow. Rosalinda Reyes RDN, LD Dietitian's Office [phone] * Palak Arora MD - 11/18/2020 9:28 AM EST [facility] Medicine Inpatient H&P 11/18/2020 Palak Arora MD [facility] Patient: More Kingsley Jr. Date of : 1965 (55 y.o.) PCP: Cheng Staples, INSURANCE EXAMINER Assessment More Kingsley is a 54 y.o. [...] Kingsley Jr. Admit Date: 11/05/2020 MR #: [id number] : 1965 Current location: [facility] Physicians: Cheng Staples CNP (Family); Dr. [...] CPM 11/14: Continue current insulin doses. Consult sap abap programmer for gastroparesis diet education. 11/18: CPM 2. [...] More Kingsley Jr. Admit Date: MR #: [id number] : 1965 Physicians: Cheng Staples CNP (Family); No ref. provider found (Referring) Assessment: Patient with 1. Left foot abscess, with MSSA 2. Osteomyelitis with MSSA 3. Uncontrolled diabetes. 4. Abdominal pain. 5. Constipation. Plan. Continue patient on current therapyn. Continue patient on IV cefazolin. I reviewed labs, including cultures, with MSSA, and be strep. I appreciate compressor repairer evaluation. Patient needs incision and drainage of left foot abscess Dressing according to compressor repairer recommendation Endocrinology evaluation for adequate blood sugar [...] (NS), 0-150 mL/hr, Intravenous, PRN, Tanja Whitmore, [facility],PharmD, New Bag at 11/11/20 1615 [...] excoriations Musculoskeletal: No joint swelling, non tender INSIDE SALES REPRESENTATIVE: Awake, and Ox3 Wound: Foot with description [...] retained stool in the proximal colon and dyrhk-dv-weuhbbow amount of retained stool in the distal [...] No tendon tear or tenosynovitis is seen. MPH/[employer] Workstation ID: [id number] MR Foot Right With And Without Contrast Final Result 1. Prior forefoot resection. Cellulitis of the surgical stump is seen associated with small ulceration. 2. No abscess. 3. No MR signs of osteomyelitis. 4. Nrtm-md-bpuzwsgm mid/hindfoot osteoarthritis. 5. Remote sprains of the ATFL and deep fibers of the deltoid ligament, as above. MPH/[facility] Workstation ID: [id number] XR Foot Left 3+ [...] Arias MD - 11/17/2020 10:29 AM EST [facility] Medicine Inpatient H&P 11/17/2020 Chuyita Arias MD [facility] Patient: More Kingsley Jr. Date of : 1965 (55 y.o.) PCP: Cheng Staples, INSURANCE EXAMINER Assessment More Kingsley is a 54 y.o. [...] retained stool in the proximal colon and lpldy-nc-wnyeqmct amount of retained stool in the distal [...] 11/17/2020 Braeden Conte DPM [facility] Patient: More Kingsley Jr. Date of : [...] 33.21 kg/m Laboratory and Additional Data Reviewed: Reviewed:[id number]} * Marcella Bell MD - 11/16/2020 7:11 PM EST Patient Name: More Kingsley Jr. Admit Date: MR #: [id number] : 1965 Physicians: Cheng Staples CNP (Family); No ref. provider found (Referring) Assessment: Patient with 1. Left foot abscess, with MSSA 2. Osteomyelitis with MSSA 3. Uncontrolled diabetes. 4. Abdominal pain. 5. Constipation. Plan. Continue patient on current therapyn. Continue patient on IV cefazolin. I reviewed labs, including cultures, with MSSA, and be strep. I appreciate compressor repairer evaluation. Patient needs incision and drainage of left foot abscess Dressing according to compressor repairer recommendation Endocrinology evaluation for adequate blood sugar [...] (NS), 0-150 mL/hr, Intravenous, PRN, Tanja Whitmore, [facility],PharmD, New Bag at 11/11/20 1615 [...] excoriations Musculoskeletal: No joint swelling, non tender INSIDE SALES REPRESENTATIVE: Awake, and Ox3 Wound: Foot with description [...] retained stool in the proximal colon and dkhkg-pv-rvwvseiv amount of retained stool in the distal [...] 3. No MR signs of osteomyelitis. 4. Relu-eu-ihzryhcl mid/hindfoot osteoarthritis. 5. Remote sprains of the ATFL and deep fibers of the deltoid ligament, as above. MPH/[facility] Workstation ID: [id number] XR Foot [...] 11/16/2020 Braeden Conte DPM [facility] Patient: More Kingsley Jr. Date of : [...] 33.21 kg/m Laboratory and Additional Data Reviewed: Reviewed:[id number]} * Chuyita Arias MD - 11/16/2020 11:26 AM EST [facility] Medicine Inpatient H&P 11/16/2020 Chuyita Arias MD [facility] Patient: More Kingsley Jr. Date of : 1965 (55 y.o.) PCP: Cheng Staples, INSURANCE EXAMINER Assessment More Kingsley is a 54 y.o. [...] retained stool in the proximal colon and fgfrn-bw-fcvnssaw amount of retained stool in the distal [...] More Kingsley Jr. Admit Date: MR #: [id number] : 1965 Physicians: Cheng Staples CNP (Family); No ref. provider found (Referring) Assessment: Patient with 1. Left foot abscess, with MSSA 2. Osteomyelitis with MSSA 3. Uncontrolled diabetes. 4. Abdominal pain. Plan. Continue patient on current therapyn. Continue patient on IV cefazolin. I reviewed labs, including cultures, with MSSA, and be strep. I appreciate compressor repairer evaluation. Patient needs incision and drainage of left foot abscess Dressing according to compressor repairer recommendation Endocrinology evaluation for adequate blood sugar [...] (NS), 0-150 mL/hr, Intravenous, PRN, Tanja Whitmore, [facility],PharmD, New Bag at 11/11/20 1615 [...] retained stool in the proximal colon and ewgzu-kf-rghewxha amount of retained stool in the distal [...] No tendon tear or tenosynovitis is seen. MPH/[employer] Workstation ID: [id number] MR Foot Right With And Without Contrast Final Result 1. Prior forefoot resection. Cellulitis of the surgical stump is seen associated with small ulceration. 2. No abscess. 3. No MR signs of osteomyelitis. 4. Bjuc-vp-mvjyqfkk mid/hindfoot osteoarthritis. 5. Remote sprains of the ATFL and deep fibers of the deltoid ligament, as above. MPH/[facility] Workstation ID: [id number] XR Foot Left 3+ [...] 11/15/2020 Braeden Conte DPM [facility] Patient: More Kingsley Jr. Date of : [...] antibiotics. Patient sees Dr. Eric Stephenson his compressor repairer at [facility] ([phone]) for wound care normally. Patient would like [...] to his home which is up by [facility]. Patient denies nausea vomiting fevers [...] 33.21 kg/m Laboratory and Additional Data Reviewed: Reviewed:[id number]} * Chuyita Arias MD - 11/15/2020 11:19 AM EST [facility] Medicine Inpatient H&P 11/15/2020 Chuyita Arias MD [facility] Patient: More Kingsley . Date of : 1965 (55 y.o.) PCP: Cheng Staples, INSURANCE EXAMINER Assessment More Kingsley is a 54 y.o. [...] More Kingsley Jr. Admit Date: MR #: [id number] : 1965 Physicians: Cheng Staples CNP (Family); No ref. provider found (Referring) Assessment: Patient with 1. Left foot abscess, with MSSA 2. Osteomyelitis with MSSA 3. Uncontrolled diabetes. Plan. Continue patient on current therapyn. Continue patient on IV cefazolin. I reviewed labs, including cultures, with MSSA, and be strep. I appreciate compressor repairer evaluation. Patient needs incision and drainage of left foot abscess Dressing according to compressor repairer recommendation Endocrinology evaluation for adequate blood sugar [...] (NS), 0-150 mL/hr, Intravenous, PRN, Tanja Whitmore, [facility],PharmD, New Bag at 11/11/20 1615 [...] excoriations Musculoskeletal: No joint swelling, non tender INSIDE SALES REPRESENTATIVE: Awake, and Ox3 Wound: Foot with description [...] No tendon tear or tenosynovitis is seen. MPH/[employer] Workstation ID: [id number] MR Foot Right With And Without Contrast Final Result 1. Prior forefoot resection. Cellulitis of the surgical stump is seen associated with small ulceration. 2. No abscess. 3. No MR signs of osteomyelitis. 4. Iprt-ow-ctocbggj mid/hindfoot osteoarthritis. 5. Remote sprains of the ATFL and deep fibers of the deltoid ligament, as above. MPH/[facility] Workstation ID: [id number] XR Foot Left 3+ [...] foot after Dr Cherry had reported to [facility] pt can heel WB only through [...] . Prior Level of Function Level of [place]: Independent with ADLs and functional transfers Lives [...] Arias MD - 11/14/2020 10:45 AM EST [facility] Medicine Inpatient H&P 11/14/2020 Chuyita Arias MD [facility] Patient: More Kingsley Jr. Date of : [...] 11/14/2020 Ryan Conte DPM [facility] Patient: More Kingsley Jr. 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 Kite on the wound VAC was approximately a [...] 33.21 kg/m Laboratory and Additional Data Reviewed: Reviewed:[id number]} * Nam Briggs PA-C - 11/14/2020 9:54 AM EST Patient ID: Patient Name: More Kingsley Jr. Admit Date: 11/05/2020 MR #: [id number] : 1965 Current location: [facility] Physicians: Cheng Staples CNP (Family); Dr. [...] CPM 11/14: Continue current insulin doses. Consult sap abap programmer for gastroparesis diet education. 2. Education: Reviewed [...] CHANGE; Surgeon: Leanne Cherry DPM; Location: [place]; Service: Podiatry HAND SURGERY Left WOUND VAC [...] you. Electronically signed by: Nam Briggs PA-C, [facility] 11/14/20 9:55 AM * Marcella Bell MD - 11/13/2020 8:26 PM EST Patient Name: More Kingsley Jr. Admit Date: MR #: [id number] : 1965 Physicians: Cheng Staples, ROSALIA (Family); No ref. provider found (Referring) Assessment: Patient with 1. Left foot abscess, with MSSA 2. Suspicion for osteomyelitis 3. Uncontrolled diabetes. Plan. Continue patient on current therapyn. Continue patient on IV cefazolin. I reviewed labs, including cultures, with MSSA, and be strep. I appreciate compressor repairer evaluation. Patient needs incision and drainage of left foot abscess Dressing according to compressor repairer recommendation Endocrinology evaluation for adequate blood sugar [...] 0-30 Units, 0-30 Units, Subcutaneous, [facility], Marvel Mcmillan MD, 3 Units at 11/10/20 [...] (NS), 0-150 mL/hr, Intravenous, PRN, Tanja Whitmore, [facility],PharmD, New Bag at 11/11/20 1615 [...] excoriations Musculoskeletal: No joint swelling, non tender INSIDE SALES REPRESENTATIVE: Awake, and Ox3 Wound: Foot with description [...] No tendon tear or tenosynovitis is seen. MPH/[employer] Workstation ID: [id number] MR Foot Right With And Without Contrast Final Result 1. Prior forefoot resection. Cellulitis of the surgical stump is seen associated with small ulceration. 2. No abscess. 3. No MR signs of osteomyelitis. 4. Lwew-vt-rynmbowa mid/hindfoot osteoarthritis. 5. Remote sprains of the ATFL and deep fibers of the deltoid ligament, as above. MPH/[facility] Workstation ID: [id number] XR Foot Left 3+ [...] Arias MD - 11/13/2020 11:32 AM EST [facility] Medicine Inpatient H&P 11/13/2020 Chuyita Arias MD [facility] Patient: More Kingsley Jr. Date of : 1965 (55 y.o.) PCP: Cheng Staples, INSURANCE EXAMINER Assessment More Kingsley is a 54 y.o. [...] Kingsley Jr. Admit Date: 11/05/2020 MR #: [id number] : 1965 Current location: [facility] Physicians: Cheng Staples CNP (Family); Dr. [...] Problem: Secondary DM with DKA ([facility]) Active Problems: Type 2 diabetes mellitus with retinopathy of both eyes, with long-term current use of insulin ([facility]) * Marcella Bell MD - 11/12/2020 2:05 PM EST Patient Name: More Kingsley Jr. Admit Date: MR #: [id number] : 1965 Physicians: Cheng Staples CNP (Family); No ref. provider found (Referring) Assessment: Patient with 1. Left foot abscess, with MSSA 2. Suspicion for osteomyelitis 3. Uncontrolled diabetes. Plan. Continue patient on current therapyn. Continue patient on IV cefazolin. I reviewed labs, including cultures, with MSSA, and be strep. I appreciate compressor repairer evaluation. Patient needs incision and drainage of left foot abscess I reviewed MRI of the foot, with Extensive cellulitis, and concern for septic arthroplathy and osteomyelitis of the left foot Dressing according to compressor repairer recommendation Endocrinology evaluation for adequate blood sugar [...] mg, 650 mg, Oral, Q6H PRN, Jennifer aGmble CNP, 650 mg at 11/11/20 2343 ceFAZolin [...] (NS), 0-150 mL/hr, Intravenous, PRN, Tanja Whitmore, [facility],PharmD, New Bag at 11/11/20 1615 [...] excoriations Musculoskeletal: No joint swelling, non tender INSIDE SALES REPRESENTATIVE: Awake, and Ox3 Wound: Foot with description [...] No tendon tear or tenosynovitis is seen. MPH/[employer] Workstation ID: [id number] MR Foot Right With And Without Contrast Final Result 1. Prior forefoot resection. Cellulitis of the surgical stump is seen associated with small ulceration. 2. No abscess. 3. No MR signs of osteomyelitis. 4. Tpda-zl-swamekxc mid/hindfoot osteoarthritis. 5. Remote sprains of the ATFL and deep fibers of the deltoid ligament, as above. MPH/[facility] Workstation ID: [id number] XR Foot Left 3+ [...] Arias MD - 11/12/2020 11:38 AM EST [facility] Medicine Inpatient H&P 11/12/2020 Chuyita Arias MD [facility] Patient: More Kingsley Jr. Date of : 1965 (55 y.o.) PCP: Cheng Staples, INSURANCE EXAMINER Assessment More Kingsley is a 54 y.o. [...] IMAGING: Reviewed 11:38 AM * Iliana Aggarwal, TRANSPLANT RN - 11/12/2020 10:25 AM EST Physical Therapy [...] Stand: Min Stand Pivot Transfers: Contact guard Supervisor [employer]: Wheeled walker Skilled Intervention: Pt required vc [...] . Prior Level of Function Level of [place]: Independent with ADLs and functional transfers Lives [...] . Prior Level of Function Level of [place]: Independent with ADLs and functional transfers Lives [...] Kingsley Jr. Admit Date: 11/05/2020 MR #: [id number] : 1965 Current location: [facility] Physicians: Cheng Staples CNP (Family); Dr. [...] More Kingsley Jr. Admit Date: MR #: [id number] : 1965 Physicians: Cheng Staples CNP (Family); No ref. provider found (Referring) Assessment: Patient with 1. Left foot abscess 2. Suspicion for osteomyelitis 3. Uncontrolled diabetes. Plan. Continue patient on current therapyn. Continue patient on IV cefazolin. I reviewed labs, including cultures, with MSSA, and be strep. I appreciate compressor repairer evaluation. Patient needs incision and drainage of left foot abscess I reviewed MRI of the foot, with Extensive cellulitis, and concern for septic arthroplathy and osteomyelitis of the left foot Dressing according to compressor repairer recommendation Endocrinology evaluation for adequate blood sugar [...] (NS), 0-150 mL/hr, Intravenous, PRN, Tanja Whitmore, [facility],PharmD PMH/PSH/SH/ reviewed, no change : [...] excoriations Musculoskeletal: No joint swelling, non tender INSIDE SALES REPRESENTATIVE: Awake, and Ox3 Wound: Foot with description [...] No tendon tear or tenosynovitis is seen. [employer] Workstation ID: [id number] MR Foot Right With And Without Contrast Final Result 1. Prior forefoot resection. Cellulitis of the surgical stump is seen associated with small ulceration. 2. No abscess. 3. No MR signs of osteomyelitis. 4. Bmzy-ig-pysakemb mid/hindfoot osteoarthritis. 5. Remote sprains of the ATFL and deep fibers of the deltoid ligament, as above. MPH/[facility] Workstation ID: [id number] XR Foot Left 3+ [...] Arias MD - 11/11/2020 12:06 PM EST [facility] Medicine Inpatient H&P 11/11/2020 Chuyita Arias MD [facility] Patient: oMre Kingsley Jr. Date of : 1965 (55 y.o.) PCP: Cheng Staples, INSURANCE EXAMINER Assessment More Kingsley is a 54 y.o. [...] Kingsley Jr. Admit Date: 11/05/2020 MR #: [id number] : 1965 Current location: [facility] Physicians: Cheng Staples CNP (Family); Dr. [...] you. Electronically signed by: Nam Briggs PA-C, [facility] 11/11/20 10:50 AM * Slyfarnaz Tricia, TRANSPLANT RN - 11/11/2020 8:43 AM EST Physical Therapy [...] TE) HEP educated for DOC LE therex: 3d99-95 reps In each direction to improve ms and carryover of improved mobility. Print out provided as well. Pt verbally agrees to perform most as long as no back pain. Home Living Type of Home: House Home Layout: One level, Stairs to enter with rails(5 BRINDA, B HR) Prior Level of Function Level of [place]: Independent with ADLs and functional transfers Lives [...] 2020 Leanne Cherry DPM [facility] Patient: More Kingsley . Date of : [...] calf pain. Laboratory and Additional Data Reviewed: Reviewed:[id number]} * Marcella Bell MD - 2020 2:47 PM EST Patient Name: More Kingsley Jr. Admit Date: MR #: [id number] : 1965 Physicians: Cheng Staples CNP (Family); No ref. provider found (Referring) Assessment: Patient with 1. Left foot abscess 2. Suspicion for osteomyelitis 3. Uncontrolled diabetes. Plan. Continue patient on current therapyn. Continue patient on IV cefazolin. I reviewed labs, including cultures, with MSSA, and be strep. I appreciate compressor repairer evaluation. Patient needs incision and drainage of left foot abscess I reviewed MRI of the foot, with Extensive cellulitis, and concern for septic arthroplathy and osteomyelitis of the left foot Dressing according to compressor repairer recommendation Endocrinology evaluation for adequate blood sugar [...] injection 5,000 Units, 5,000 Units, Subcutaneous, Q8H [facility], Chuyita Arias MD, 5,000 Units at 11/10/20 1402 [START ON 11/11/2020] insulin glargine (LANTUS) injection 25 Units, 25 Units, Subcutaneous, [facility], Marvel Mcmillan MD insulin glargine (LANTUS) injection 25 Units, 25 Units, Subcutaneous, Nightly, Marvel Mcmillan MD insulin lispro (HumaLOG) injection 0-15 Units, 0-15 Units, Subcutaneous, at bedtime, Jack Hair, INSURANCE EXAMINER, 2 Units at 11/06/20 2105 insulin lispro [...] (NS), 0-150 mL/hr, Intravenous, PRN, Tanja Whitmore, [facility],PharmD PMH/PSH/SH/FH reviewed, no change : [...] excoriations Musculoskeletal: No joint swelling, non tender INSIDE SALES REPRESENTATIVE: Awake, and Ox3 Wound: Foot with description [...] No tendon tear or tenosynovitis is seen. MPH/[employer] Workstation ID: [id number] MR Foot Right With And Without Contrast Final Result 1. Prior forefoot resection. Cellulitis of the surgical stump is seen associated with small ulceration. 2. No abscess. 3. No MR signs of osteomyelitis. 4. Lstw-kb-rfsbivpu mid/hindfoot osteoarthritis. 5. Remote sprains of the ATFL and deep fibers of the deltoid ligament, as above. MPH/[facility] Workstation ID: [id number] XR Foot Left 3+ [...] Arias MD - 2020 11:19 AM EST [facility] Medicine Inpatient H&P 2020 Chuyita Arias MD [facility] Patient: Mroe Kingsley Jr. Date of : 1965 (55 y.o.) PCP: Cheng Staples, INSURANCE EXAMINER Assessment More Kingsley is a 54 y.o. [...] More Kingsley Jr. Admit Date: MR #: [id number] : 1965 Physicians: Cheng Staples CNP (Family); No ref. provider found (Referring) Assessment: Patient with 1. Left foot abscess 2. Suspicion for osteomyelitis 3. Uncontrolled diabetes. Plan. Continue patient on current therapyn. Continue patient on IV cefazolin. I reviewed labs, including cultures, with MSSA, and be strep. I appreciate compressor repairer evaluation. Patient needs incision and drainage of left foot abscess I reviewed MRI of the foot, with Extensive cellulitis, and concern for septic arthroplathy and osteomyelitis of the left foot Dressing according to compressor repairer recommendation Endocrinology evaluation for adequate blood sugar [...] 0-30 Units, Subcutaneous, Before dinner, Jack Coffey INSURANCE EXAMINER, 3 Units at 11/09/20 1826 ipratropium-albuteroL (DUO-NEB) [...] (NS), 0-150 mL/hr, Intravenous, PRN, Tanja Whitmore, [facility],PharmD PMH/PSH/SH/ reviewed, no change : [...] excoriations Musculoskeletal: No joint swelling, non tender INSIDE SALES REPRESENTATIVE: Awake, and Ox3 Wound: Foot with description [...] No tendon tear or tenosynovitis is seen. [employer] Workstation ID: [id number] MR Foot Right With And Without Contrast Final Result 1. Prior forefoot resection. Cellulitis of the surgical stump is seen associated with small ulceration. 2. No abscess. 3. No MR signs of osteomyelitis. 4. Utjx-kq-tcjyijhn mid/hindfoot osteoarthritis. 5. Remote sprains of the ATFL and deep fibers of the deltoid ligament, as above. [employer]/[facility] Workstation ID: [id number] XR Foot Left 3+ [...] 11/09/2020 Leanne Cherry DPM [facility] Patient: More Kingsley Jr. Date of : [...] calf pain. Laboratory and Additional Data Reviewed: Reviewed:[id number]} * Chuyita Arias MD - 11/09/2020 11:50 AM EST Hospital Medicine Inpatient H&P 11/09/2020 Chuyita Arias MD [facility] Patient: More Kingsley Jr. Date of : [...] Kingsley Jr. Admit Date: 11/05/2020 MR #: [id number] : 1965 Current location: [facility] Physicians: Cheng Staples CNP (Family); Dr. [...] More Kingsley Jr. Admit Date: MR #: [id number] : 1965 Physicians: Cheng Staples CNP (Family); No ref. provider found (Referring) Assessment: Patient with 1. Left foot abscess 2. Suspicion for osteomyelitis 3. Uncontrolled diabetes. Plan. Continue patient on current therapy Okay to DC IV vancomycin Okay to DC IV Zosyn. Start patient on IV cefazolin. I reviewed labs, including cultures, with MSSA, and be strep. I appreciate compressor repairer evaluation. Patient needs incision and drainage of left foot abscess I reviewed MRI of the foot, with Extensive cellulitis, and concern for septic arthroplathy and osteomyelitis of the left foot Dressing according to compressor repairer recommendation Endocrinology evaluation for adequate blood sugar [...] 4 mg, 4 mg, Intravenous, Q6H PRN, Flaok Pinedo MD, 4 mg at 11/08/20 0046 oxyCODONE-acetaminophen (PERCOCET) 5-325 mg per tablet 1 tablet, 1 tablet, Oral, Q4H PRN, Jean Farley MD, 1 tablet at 11/08/20 1648 potassium chloride SA (K-DUR,KLOR-CON) CR tablet 40 mEq, 40 mEq, Oral, Daily, Flako Pinedo MD, 40 mEq at 11/08/20 0931 sodium chloride 0.9% (NS), 0-150 mL/hr, Intravenous, PRN, Tanja Whitmore, [facility],PharmD PMH/PSH/SH/ reviewed, no change : [...] excoriations Musculoskeletal: No joint swelling, non tender INSIDE SALES REPRESENTATIVE: Awake, and Ox3 Wound: Foot with description [...] No tendon tear or tenosynovitis is seen. MPH/Macu[employer] Workstation ID: [id number] MR Foot Right With And Without Contrast Final Result 1. Prior forefoot resection. Cellulitis of the surgical stump is seen associated with small ulceration. 2. No abscess. 3. No MR signs of osteomyelitis. 4. Dngz-xw-fmvdpldl mid/hindfoot osteoarthritis. 5. Remote sprains of the ATFL and deep fibers of the deltoid ligament, as above. MPH/[place] Workstation ID: [id number] XR Foot Left 3+ [...] (Principal) Secondary DM with DKA ([facility]) Relevant Medications insulin glargine (LANTUS) [...] Arias MD - 11/08/2020 12:13 PM EST [facility] Medicine Inpatient H&P 11/08/2020 Chuyita Arias MD [facility] Patient: More Kingsley Jr. Date of : 1965 (54 y.o.) PCP: Cheng Staples, INSURANCE EXAMINER Assessment More Kingsley is a 54 y.o. [...] Kingsley Jr. Admit Date: 11/05/2020 MR #: [id number] : 1965 Current location: [facility] Physicians: Cheng Staples CNP (Family); Dr. [...] 11/08/2020 Ryan Conte DPM [facility] Patient: More Kingsley . Date of : [...] calf pain. Laboratory and Additional Data Reviewed: Reviewed:[id number]} * Marcella Bell MD - 11/07/2020 7:38 PM EST Patient Name: More Kingsley Jr. Admit Date: MR #: [id number] : 1965 Physicians: Cheng Staples CNP (Family); No ref. provider found (Referring) Assessment: Patient with 1. Left foot abscess 2. Suspicion for osteomyelitis 3. Uncontrolled diabetes. Plan. Continue patient on current therapy Okay to DC IV vancomycin Okay to DC IV Zosyn. Start patient on IV cefazolin. I reviewed labs, including cultures, with MSSA, and be strep. I appreciate compressor repairer evaluation. Patient needs incision and drainage of left foot abscess I reviewed MRI of the foot, with Extensive cellulitis, and concern for septic arthroplathy and osteomyelitis of the left foot Dressing according to compressor repairer recommendation Endocrinology evaluation for adequate blood sugar [...] excoriations Musculoskeletal: No joint swelling, non tender INSIDE SALES REPRESENTATIVE: Awake, and Ox3 Wound: Foot with description [...] 3. No MR signs of osteomyelitis. 4. Fwmg-lw-soebqqbp mid/hindfoot osteoarthritis. 5. Remote sprains of the [...] 11/07/2020 Leanne Cherry DPM [facility] Patient: More Kingsley Jr. Date of : [...] Farley MD - 11/07/2020 11:01 AM EST [facility] Medicine Inpatient H&P 11/07/2020 Jean Farley MD [facility] Patient: More Kingsley Jr. Date of : 1965 (54 y.o.) PCP: Cheng Staples, INSURANCE EXAMINER Assessment More Kingsley is a 54 y.o. [...] Kingsley Jr. Admit Date: 11/05/2020 MR #: [id number] : 1965 Current location: [facility] Physicians: Cheng Staples CNP (Family); Dr. [...] you. Marvel Mcmillan MD * Rafat Miller, [facility],PharmD - 11/07/2020 8:06 AM EST [...] 11/05/20 105 kg (231 lb 7.7 oz) [place] body weight: 73 kg (160 lb 15 [...] seen Pharmacist: Rafat Miller RPh,PharmD Contact Number: [phone] * Jean Farley MD - 11/06/2020 9:18 AM EST [facility] Medicine Inpatient H&P 11/06/2020 Jean Farley MD [facility] Patient: More Kingsley Date of : 1965 (54 y.o.) PCP: Cheng Staples, INSURANCE EXAMINER Assessment More Kingsley is a 54 y.o. [...] 11/05/20 105 kg (231 lb 7.7 oz) [place] body weight: 73 kg (160 lb 15 [...] pending Pharmacist: Jose Read RPh,PharmD Contact Number: [phone] documented in this encounter* Phu Buck RN - 11/20/2020 8:44 AM EST 11/20/2020 Call from Frances in [facility] this am confirming that pt is out of service area for [facility] andPharmacy. This RN had notified CM team of same on 11/19. Patient lives in [place], [place] so CM sendingreferral to [place]. [facility] and IV Infusion: Pt lives outside of the [facility] area for both Home Health and Pharmacy. documented in this encounter* Monica Jalloh RN - 12/19/2020 2:30 PM EST Nurse wore gloves and mask while taking care of patient. Patient wearing mask at all times while staff in the room. * Marcella Bell MD - 12/19/2020 2:21 PM EST Patient Name: More Kingsley Jr. Admit Date: MR #: [id number] : 1965 Physicians: Cheng Staples CNP (Family); [...] MSSA, and be strep. Dressing according to compressor repairer recommendation Endocrinology evaluation for adequate blood sugar [...] cultures, bone culture with no growth. Follow-up compressor repairer. I reviewed CBC, and C-reactive protein with 10.9 kidneys BUN and creatinine 9 and 0.72 Follow-up in 3 weeks. Okay with surgical shoe. Subjective: Patient is being reevaluated again today, he was followed in [facility] in the month of October 2020, at that time he had presented with left foot swelling and redness and alsowith some draining pus. He was evaluated and found with abscess of the left foot, and osteomyelitis. Patient then had compressor repairer debridement and drainage. Wound culture then had [...] excoriations Musculoskeletal: No joint swelling, non tender INSIDE SALES REPRESENTATIVE: Awake, and Ox3 PICC line in place. [...] and PT pulses nonpalpable secondary to edema. AUTO PAINTER is brisk to distal digits. Gross sensation [...] More Kingsley Jr. Admit Date: MR #: [id number] : 1965 Physicians: Cheng Staples CNP (Family); No ref. provider found (Referring) Assessment: Patient with 1. Left foot abscess, with MSSA 2. Osteomyelitis with MSSA 3. Uncontrolled diabetes. 4. Abdominal pain. 5. Constipation. Plan. Continue patient on current therapy. Status post IV cefazolin. Had antibiotics for more than 8 weeks. I reviewed labs, including cultures, with MSSA, and be strep. Dressing according to compressor repairer recommendation Endocrinology evaluation for adequate blood sugar control We will continue to follow with you. Status post debridement. Reviewed previous bone cultures with MSSA. I reviewed labs. I reviewed CT scan of the abdomen and pelvis, with moderate large amount of retained stool in the proximal colon. Status post incision and drainage of the left ankle foot. Follow-up compressor repairer. Follow-up in 3 to 4 weeks. I reviewed bone biopsy on december with no growth I discussed with the compressor repairer on management plan. Dr. Cherry, scheduling for reconstruction of the left foot. Okay to switch to p.o. Keflex for the next 2 weeks. Okay to DC PICC line. Follow-up x-ray of the left foot. Subjective: Patient is being reevaluated again today, he was followed in [facility] in the month of October 2020, at that time he had presented with left foot swelling and redness and alsowith some draining pus. He was evaluated and found with abscess of the left foot, and osteomyelitis. Patient then had compressor repairer debridement and drainage. Wound culture then had [...] the left Charcot foot area by the compressor repairer. He is not complaining of any new [...] excoriations Musculoskeletal: No joint swelling, non tender INSIDE SALES REPRESENTATIVE: Awake, and Ox3 PICC line in place. [...] and PT pulses nonpalpable secondary to edema. AUTO PAINTER is brisk to distal digits. Gross sensation [...] with transportation. Patient has been driving from [facility], which takes him 1.5 hours. [...] More Kingsley Jr. Admit Date: MR #: [id number] : 1965 Physicians: Cheng Staples CNP (Family); Lenane Cherry DPM (Referring) Assessment: 1. Left foot [...] on tissue exam 11/18/20 Dressing according to compressor repairer recommendation - currently with VAC dressing Status post debridement, I&D Follow up bone biopsy and wound culture 12/27/20 with no growth Continue working on blood sugar control (last A1c 8.2) Masking Machine Operator Dr. Cherry planning reconstruction of the left [...] wound clinic today, also coming to see compressor repairer. There is someincreased swelling to the base [...] excoriations Musculoskeletal: No joint swelling, non tender INSIDE SALES REPRESENTATIVE: Awake, and Ox3 Wound: 3/5 . ---> [...] More Kingsley Jr. Admit Date: MR #: [id number] : 1965 Physicians: Cheng Staples CNP (Family); [...] drainage of the left ankle foot. Follow-up compressor repairer. Follow-up in 3 to 4 weeks. I [...] was noted. Patient scheduled to see the compressor repairer Dr. Waller on second opinion, suggest been recommended for constructive foot surgery.. Subjective: Patient is being reevaluated again today, he was followed in [facility] in the month of October 2020, at that time he had presented with left foot swelling and redness and alsowith some draining pus. He was evaluated and found with abscess of the left foot, and osteomyelitis. Patient then had compressor repairer debridement and drainage. Wound culture then had [...] the left Charcot foot area by the compressor repairer. He is not complaining of any new [...] excoriations Musculoskeletal: No joint swelling, non tender INSIDE SALES REPRESENTATIVE: Awake, and Ox3 Off PICC line Wound: [...] over CT Scan; CT Scan done at [facility] September 12, 2025 10:38am Additional Source Comments (unrecognized sect ion and content) No Status Records FoundNo Status Records FoundNo Status Records FoundNo Status Records FoundNo Status Records FoundNo Status Records FoundNo Status Records FoundNo Status Records FoundNo Status Records FoundNo Status Records FoundNo Status Records FoundNo Status Records Found INFORMATION SOURCE (unrecogn ized section and content) DATE CREATED AUTHOR 01/10/2019 [facility] DATE CREATED AUTHOR AUTHOR'S ORGANIZ ATION 11/21/2020 [facility] DATE CREATED AUTHOR AUTHOR'S ORGANIZ ATION 02/07/2021 [facility] DATE CREATED AUTHOR AUTHOR'S ORGANIZ ATION 02/11/2021 [facility] DATE CREATED AUTHOR AUTHOR'S ORGANIZ ATION 04/04/2021 [facility] DATE CREATED AUTHOR AUTHOR'S ORGANIZ ATION 03/22/[address] [facility] DATE CREATED AUTHOR AUTHOR'S ORGANIZ ATION 03/13/2024 [facility] DATE CREATED AUTHOR AUTHOR'S ORGANIZ ATION 04/22/2025 [facility] DATE CREATED AUTHOR AUTHOR'S ORGANIZ ATION 05/20/2025 [facility] DATE CREATED AUTHOR AUTHOR'S ORGANIZ ATION 08/13/2025 [facility] DATE CREATED AUTHOR AUTHOR'S ORGANIZ ATION 08/27/2025 [facility] DATE CREATED AUTHOR AUTHOR'S ORGANIZ ATION 09/22/2025 [facility] Reason for Visit (unrecogniz ed section and content) ReasonCommentsWound CheckSpecialtyDiagnoses / ProceduresReferred By Contact Referred To ContactWound Care Diagnoses Visit for wound check Henry GRANT Martins-INSURANCE EXAMINER [address] [place] [address] Phone: tel: fax: [facility] [address] [place] [address] Phone: tel: fax:[phone] Referral IDStatusReasonMission DateExpiration DateVisits RequestedVisits [id number] Review Specialty Services Required [id number]kqmdbr / ProceduresReferred By ContactReferred To Contact Diagnoses Secondary DM with DKA (HCC) Left foot cellulitis; DKA ReasonCommentsCare Coordinator - Leon Yoon's office/request for office note ReasonCommentsCare CoordinationGastroparesis clinic: chart review; new patient callReasonCommentsWound CheckSpecialtyDiagnoses / ProceduresReferred By Contact Referred To ContactWound Care Diagnoses Visit for wound check Lakshmi Figueroa APRN-INSURANCE EXAMINER [address] [place] [address] Phone: tel: fax: [facility] [address] [place] [address] Phone: tel: fax:[phone] Referral IDStatusasonMission DateExpiration DateVisits RequestedVisits [id number] Review Specialty Services Required [id number] CoordinationAppeal for GPOEM denialReason CommentsEstablish CareSpecialtyDiagnoses / ProceduresReferred By ContactReferred To ContactInternal Medicine Diagnoses Visit for wound check Hyperglycemia Lakshmi Figueroa, INTERVENTIONAL RADIOLOGY RN-INSURANCE EXAMINER [address] [place] [address] Phone: tel: fax: Vahe Solares MD [address] [place] [address] Phone: tel: fax: Referral IDStatusReasonStart DateExpiration DateVisits RequestedVisits [id number] Review Specialty Services Required [id number] CheckSpecialtyDiagnoses / Procedures Referred By ContactReferred To ContactWound Care Diagnoses Visit for wound check Lakshmi Figueroa INTERVENTIONAL RADIOLOGY RN-INSURANCE EXAMINER [address] [place] [address] Phone: tel: fax: [facility] [address] [place] [address] Phone: tel: fax: Referral IDStatusReasonStart DateExpiration DateVisits RequestedVisits [id number] Review Specialty Services Required [id number]ognl-izSgnq painReasonCommentsMed Change RequestReasonCommentsNew PatientSpecialtyDiagnoses / ProceduresReferred By ContactReferred To ContactGENERAL SURGERY Diagnoses Gastroparesis new gp consult/empties Procedures OFFICE/OUTPATIENT NEW HIGH MDM 60 MINUTES OFFICE/OUTPATIENT NEW MODERATE MDM 45 MINUTES OFFICE/OUTPATIENT NEW LOW MDM 30 MINUTES OFFICE/OUTPATIENT NEW SF MDM 15 MINUTES OFFICE/OUTPATIENT ESTABLISHED HIGH MDM 40 MIN NEW DDI PATIENT Tracy Yoon MD [address] [place] [address] Phone: tel: fax: Dolly Hyatt, PhD [address] [place] [address] Phone: tel: fax: Referral IDStatusReasonStart DateExpiration DateVisits RequestedVisits [id number] DateCommentsResults 05/22/2025ReasonCommentstransitonal care visitReasonOnset DateCommentsResults 07/17/20258854RzcvclPketykecLgeurr-qxDvbjalBmptvpmdJxfsjw-jxNseknzrv/A1C/ Right foot wound Leanne Cherry DPM - 11/18/2020 12:30 PM EST H&P Notes (unrecognized sect ion and content) INTERVAL HISTORY AND PHYSICAL Patient Name: More Kingsley Jr. Admit Date: MR #: [id number] : 1965 The H&P has been reviewed and the patient has been examined. I concur with the findings of the H&P. There are no significant changes. It is appropriate to proceed with the planned procedure. Leanne Cherry DPM 11/18/2020 12:30 PM * Braeden Conte DPM - 11/17/2020 9:39 AM EST Progress Inpatient Follow-up 11/17/2020 Braeden Conte DPM [facility] Patient: More Kingsley JrFrankie Date of : [...] 33.21 kg/m Laboratory and Additional Data Reviewed: Reviewed:[id number]} * Flako Pinedo MD - 11/05/2020 8:29 PM EST [facility] Medicine Inpatient H&P 11/05/2020 Flako Pinedo MD [facility] Patient: More Kingsley Date of : 1965 (54 y.o.) PCP: Cheng Staples, INSURANCE EXAMINER Assessment More Kingsley is a 54 y.o. [...] EST Consult Notes (unrecognized section and content) Picker And Sorter Load And Unload went with Dr. Kumar, compressor repairer, to patient's room . Dr. Kumar removed remainder of black foam from tunnel at 11 oclock. Picker And Sorter Load And Unload requested and received order change to white foam over bone and in tunnel areas, then black foam and negative pressure increased to 150mm/hg. Wound dressed per orders with 3 pieces total white foam, two pieces black foam to top. Negative pressure maintained and patient tolerated well. Patient dressing was attached to home vac at this time. Paperwork signed forvac by patient. Picker And Sorter Load And Unload educated patient on charging, what to bring to future wound care appointments for dressing changes and all questions answered. * Monica Jalloh RN - 11/21/2020 7:48 AM EST Picker And Sorter Load And Unload in to see patient for wound vac dressing change. Picker And Sorter Load And Unload removed intact vac dressing as described to film writer by Dr. Cherry. Picker And Sorter Load And Unload removed one piece black foam from top of dressing. Picker And Sorter Load And Unload removed one piece black foam packed from 9 oclock area over to undermining in 2-4 oclock area. Picker And Sorter Load And Unload removed one piece black foam from 7 oclock area. There remains one piece black foam in 11 oclock area (toward medial ankle) that is adhered to tunneling and exposed bone and could not be removed intact. Picker And Sorter Load And Unload placed ns moist gauze dressing temporarily until discusses with podiatry. * Rossana Caldwell RN - 11/19/2020 2:59 PM EST IV team consulted for PICC placement. Chart and history reviewed. PICC insertion explained to patient , agreed to procedure. Single lumen PICC inserted following [place] Protocol into cephalic vein. PICC trimmed at [...] deficit. 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 [...] foot unclear and OT to clarify with compressor repairer post evaluation this date. Home Living Type of Home: House Home Layout: One level, Stairs to enter with rails Bathroom Shower/Tub: Tub/shower unit Bathroom Toilet: Standard(Low toilet per pt.) Home Equipment: (Crutches) Additional Comments: Pt prefers to be called Carlitos . Prior Level of Function Level of [place]: Independent with ADLs and functional transfers Lives [...] HR) Prior Level of Function Level of [place]: Independent with ADLs and functional transfers Lives [...] Jalloh RN - 11/08/2020 2:09 PM EST Picker And Sorter Load And Unload in to see patient for wound vac [...] with patient in patient'sroom. Patient educated to oncology social worker role. Patient reports that he resides at [...] Patient Name: More Kingsley Jr. MR #: [id number] : 1965 Physicians: Cheng Staples CNP (Family); [...] file Gets together: Not on file Attends congregational service: Not on file Active member of [...] 15-20 maintain Follow-up labs, including cultures Follow-up compressor repairer Patient needs incision and drainage of left foot abscess Consider MRI of the left foot Dressing according to compressor repairer recommendation Endocrinology evaluation for adequate blood sugar [...] PM EST Associated Order(s): IP CONSULT TO MIGRATORY GAME BIRD BIOLOGIST Met with pt for diabetes education. Pt [...] to feel like heis going to vomit. 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 He mentions often going to [employer] & ordering a double cheeseburger with a medium Jamaican macias and medium diet soda. Occasional milk [...] 11/06/2020 Braeden Conte DPM [facility] Patient: More Kingsley Date of : 1965 [...] the last 2 weeks. Patient is from [facility] where he was transferred down here to be evaluated and treated. Patient lost his right forefoot 3 years ago due to infection. 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 History of Present Illness: More Kingsley is a 54 y.o. male presenting from [facility] with complaint of left midfoot abscess and [...] More Kingsley Admit Date: 11/05/2020 MR #: [id number] : 1965 Current location: [facility] Physicians: Cheng Staples CNP (Family); Dr. [...] follow this patient with you. Jack Coffey, RSOALIA documented in this encounter Hospital Course - [...] * [facility] - Slyfarnaz Tricia, TRANSPLANT RN - 11/19/2020 9:16 AM EST PHYSICAL THERAPY [...] (55 y.o.) Date of Service: 11/18/2020 CSN: [id number] Procedure(s): INCISION AND DRAINAGE FOOT/ANKLE with Application of Wound Vac Pre-Operative Diagnoses: * Abscess of left ankle Post-Operative Diagnoses: * Same as Pre-Op Diagnosis Surgeon(s) and Role: * Leanne Cherry DPM - Primary Anesthesiologist: Almas Gutierrez MD LIFE SUPPORT TECHNICIAN: Kathrine Page CRNA Anesthesiologist Manager Entry: SUNDEEP Machado Prepress Specialist: Kathrine Rice RN; Paola German RN Scrub [...] Odor None 11/18/20 0800 Wound Bed Characteristics [place] 11/17/20 0815 Debi-wound Assessment Brown;Scaly 11/16/20 0506 [...] (55 y.o.) Date of Service: 11/11/2020 CSN: [id number] Procedure(s): DEBRIDEMENT AND DRESSING CHANGE APPLICATION WOUND VAC Pre-Operative Diagnoses: * Abscess, left foot Post-Operative Diagnoses: * Same as Pre-Op Diagnosis Surgeon(s) and Role: * Leanne Cherry DPM - Primary Anesthesiologist: Javi Barriga MD LIFE SUPPORT TECHNICIAN: Jasmine Gauthier CRNA Anesthesiologist Manager Entry: SUNDEEP Machado Prepress Specialist: Kathrine Rice RN; Evie Hunt RN Scrub [...] Evie Rueda, TAMARAN, RN Clinical Documentation Improvement [facility] [phone] After business hours you may contact Arianna Hooks at [phone] (Weekdays until 10 PM and weekends 8 [...] Jonny Zhu MD [address] [place] [phone] [facility] - [facility] Cheng Staples NP [address] [place] [address] [facility]07/23/23 Cheng Staples NP [address] [place] [address] Nurse [facility]01/06/24 Team Status: Inactive Member Role Status Dates [...] 12, 2024Team MemberRelationshipSpecialtyStart DateEnd Date Cheng Staples APRN-INSURANCE EXAMINER PCP - GeneralNurse Practitioner03/05/25Team MemberRelationshipSpecialtyStart Date End Date Cheng Staples APRN-CNP PCP - GeneralNurse Practitioner03/05/25Team MemberRelationshipSpecialtyStart Date End Date Art Freeman DO [address] [facility] [place] [address] PCP - GeneralFamily Medicine04/26/25Team MemberRelationshipSpecialtyStart DateEnd Date Cheng Staples, INTERVENTIONAL RADIOLOGY RN-INSURANCE EXAMINER PCP - GeneralNurse Practitioner03/05/25Team MemberRelationshipSpecialtyStart Date End Date Art Freeman DO [address] [facility] [place] [address] [facility]CP - [facility]04/26/25Team MemberRelationshipSpecialtyStart DateEnd Date Art Freeman DO [address] [facility], [facility] [address] [place] [address] PCP - Generalmily Medicine04/26/25Team MemberRelationshipSpecialtyStart DateEnd Date Art Freeman DO [address] [facility], [facility] [address] [place] [address] PCP - Generalmily Medicine04/26/25Team MemberRelationshipSpecialtyStart DateEnd Date Art Freeman DO [address] [facility] [address] [place] [address] PCP - Generalmily Medicine04/26/25 Team Status: Inactive Member Role Status Dates Cheng Staples Primary Care Provider Active Sta rt: June 28, 2025 End: June 28, 2025Cathy Ramirez FLY FINISHER-CAttending ProviderActiveStart: June 28, 2025 End: June 28, [...] MemberRelationshipSpecialtyStart DateEnd Date Art Freeman DO [address] [facility] [address], [place] [address] PCP - GeneralFamily Medicine04/26/25Team MemberRelationshipSpecialtyStart DateEnd Date Art Freeman DO [address] [facility] [place], [facility], [place] [address] PCP - GeneralFamily Medicine04/26/25 Team Status: Active Member Role Status Dates NON STAFF Primary Care Provider Active Team Status: Inactive Member Role Status Dates Chan Quintanilla MD Attending Provider Active Start: July 09, 2025 End: July 09, 2025NON STAFFPrimary Care ProviderActiveStart: July 09, 2025 End: July 09, 2025Team MemberRelationshipSpecialtyStart DateEnd Date Art Freeman DO [address] [facility] [address] [place] [address] PCP - GeneralFamily Medicine04/26/25Team MemberRelationshipSpecialtyStart DateEnd Date Art Freeman DO [address] [facility] [address], [place] [address] PCP - GeneralFamily Medicine04/26/25Team MemberRelationshipSpecialtyStart DateEnd Date Art Freeman DO [address] [facility] [address] [place] [address] PCP - [facility]04/26/25Team MemberRelationshipSpecialtyStart DateEnd Date Art Freeman DO [address] [facility] [place], [facility], [place] [address] PCP - [facility]04/26/25Team MemberRelationshipSpecialtyStart DateEnd Date Art Freeman, [address] [facility], [place], [facility], [place] [address] PCP - [facility]04/26/25 Team Status: Inactive Member Role [...] Team Status: Inactive Member Role Status Dates LAISHA Pardo Attending Provider Active Start: August 22, 2025 End: August 22, 2025NON STAFFPrimary Care ProviderActiveStart: August 22, 2025 End: August 22, 2025Team MemberRelationshipSpecialtyStart DateEnd Date Art Freeman DO [address] [facility] [address] [place] [address] [facility] Team Status: Active Member Role/Relationship Status Dates NON STAFF Primary Care Provider Active Team Status: Inactive Member Role/Relationship Status Dates Cheng Staples , FLY FINISHER-C Primary Care Provider Active Start: June 28, 2025 End: June 28, 2025Rory Pardo ProviderActiveStart: June 28, 2025 End: June 28, 2025 Team Status: Inactive Member Role/Relationship Status Dates Cheng Staples FLY FINISHER-C Primary Care Provider Active Start: June 28, [...] MemberRelationshipSpecialtyStart DateEnd Date Art Freeman DO [address] [facility] [address], [place] [address] PCP - [facility]04/26/25 Goals (unrecognized section and content) Goals may be documented in a n alternate section Source Comments (unrecognize d section and content) In the event this informatio n is protected by the Federal Confidentiality of Alcohol and Drug Abuse Patient Records regulations: The Federal rules restrict any use of the information to criminally investigate or prosecute any alcohol or drug abuse patient.[facility] the event this information is protected by the Federal Confidentiality of Alcohol and Drug Abuse Patient Records regulations: The Federal rules restrict any use of the information to criminally investigate or prosecute any alcohol or drug abuse patient.[facility] the event this information is protected by the Federal Confidentiality of Alcohol and Drug Abuse Patient Records regulations: The Federal rules restrict any use of the information to criminally investigate or prosecute any alcohol or drug abuse patient.[facility] the event this information is protected by the Federal Confidentiality of Alcohol and Drug Abuse Patient Records regulations: The Federal rules restrict any use of the information to criminally investigate or prosecute any alcohol or drug abuse patient.[facility]In the event this information is protected by the Federal Confidentiality of Alcohol and Drug Abuse Patient Records regulations: The Federal rules restrict any use of the information to criminally investigate or prosecute any alcohol or drug abuse patient.[facility] Columbus[facility] the event this information is protected by the Federal Confidentiality of Alcohol and Drug Abuse Patient Records regulations: The Federal rules restrict any use of the information to criminally investigate or prosecute any alcohol or drug abuse patient.[facility] ColumbusIn the event this information is protected by the Federal Confidentiality of Alcohol and Drug Abuse Patient Records regulations: The Federal rules restrict any use of the information to criminally investigate or prosecute any alcohol or drug abuse patient.[facility] FOR RECORDS PERTAINING TO PATIENTS WHO ARE [...] BE BASED ON THE PRIMARY CLINICAL RECORDS. [facility]. provides no warranty or guarantee of the accuracy or completeness of information in this document.
== END 2025-10-10 14:44 | disposition home or self-care (01) ==
PROVIDERS: PCP Family Medicine; Visit Provider Physician Assistant
DX: E11.621 Type 2 diabetes mellitus with foot ulcer (principal); L97.415 Non-pressure chronic ulcer of right heel and midfoot with muscle involvement without evidence of necrosis
CPT/HCPCS: G0463

== ENCOUNTER 2025-10-31 10:50 | Outpatient (OUT) | payer MEDICARE, SELFPAY ==
--- OUTSIDE RECORDS SUMMARY | 2025-10-31 10:59 | XMS_ITS | CCD ---
Author Organization [facility] Care Team Providers Care Pattern Storage Clerk Name Role Phone JAVI FIGUEROA Admitting Unavailable [...] Unavailable DILIP, LEANNE SABRY Admitting Unavailable DOMKA, MAYD Attending Unavailable LEANNE CHERRY Referring Unavailable CHENG STAPLES Primary Care Unavailable EZIKE, MARCELLA ANICETUS Admitting Unavaila ble EZIKE, MARCELLA ANICETUS Attending Unavaila ble CHENG STAPLES J Primary Care Unavailable Ezike, Marcella Anicetus Attending Unavaila ble CHINYADZA, TANYANYIWA W Referring Unavaila ble CHENG STAPLES J. Primary Care Unavailable CHINYADZA, TANYANYIWA W Admitting Unavaila ble CHINYADZA, TANYANYIWA W Attending Unavaila ble Amor Fernandez Unavailable FELIZ IDXON Consulting Unavailable MARKER ., DR MANRIQUE Admitting Unavailable MARKER ., DR MANRIQUE Attending Unavailable AICHROSALIA KNAPP CHENG Primary Care Unavailable EV POPE Consulting Unavailab Maxi Thomson Unavailable Iva Black Unavailable MapusSebastián Unavailable Bel BURNER HAND, Cheng Unavailable Jonny Zhu MD Primary Care Provider Bel BURNER HAND, Cheng Unavailable Cheng Staples Primary Care Provider Cheng Staples Attending Provider Cheng Staples Primary Care Provider MD Karrie Imnew Attending Provider CHENG STAPLES Attending Unavailable CHENG STAPLES Attending Unavailable CHENG STAPLES Attending Unavailable Cheng Staples Primary Care Provider MD Tracy Yoon Attending Provider [phone] Unavailable Primary Care Provider Unavailke Staples 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-Cheng LINDSEY Primary Care Provider ART FIGUEREDO Referring Unavailable Art Freeman DO Primary Care Provider ART FIGUEREDO Attending Unavailable ASAAD, IMAD Referring Unavailable JEROME DEL TORO Attending Unavailable ASAAD, IMAD Referring Unavailable COURTNEY GLOVER Attending Unavailable FIGUEREDO, ART S Referring Unavailable DAVIDA PRICE Attending Unavailable ASAAD, IMAD Referring Unavailable Aichholz, Cheng J Primary Care Provider [phone] Ashley EPSTEIN-CCathy Attending Provider Chan Quintanilla MD [...] BADIK, ART D Primary Care Unavailable Aichholz BURNER HAND-CCheng Primary Care Provider Cathy Hathaway Attending Provider Chan Quintanilla MD Other Provider [phone] Chan Quintanilla Attending Unavailabl Chan Epperson Admitting [...] to pollen; Translations: [hayfever]Propensity to adverse reactions (disorder)02-18-2981[facility] (1 source)bee venomDrug allergy (disorder)[facility] (1 source)Honey bee venomPropensity to adverse osqleaeqn18-06-5585[facility] (1 source)Bee pollenAllergy to yeowzqvio67-18-3671Zwbwlef [facility] (20 sources)bee venom protein (honey bee); Translations: [BEE VENOM PROTEIN (HONEY BEE)]Allergy to nmxdvxybc61-49-7872Vndkm (See Comments)[facility] (8 sources)Venom-Honey Bee; Translations: [VENOM-HONEY BEE]Drug Allergy 04-34-6378Upgqgdaeunn, Other: See Comments, [facility] Medications Current Medications MedicationDrug Class(es)DatesSig (Normalized)Sig (Original)amitriptyline hydrochloride 25 mg oral tablet (1 source)Tricyclic AntidepressantStart: 33-01-1887tkca 1 tablet by mouth every twenty-four hoursAmitriptyline HCl 25 MG 1 tablet at bedtime Orally Once a day for 30 days Nov, Activeamoxicillin 875 mg / clavulanate 125 mg oral tablet (15 sources)Penicillin-class AntibacterialStart: 08-27-2025 End: 47-83-7236iqzp 1 tablet by mouth once in the morningamoxicillin-pot clavulanate (AUGMENTIN) 875-125 mg per tablet Indications: Ulcer of right foot withfat layer exposed (CMS-HCC) Take 1 tablet by mouth in the morning and 1 tablet before bedtime. Do all this for 14 days. 28 tablet 08/27/2025 09/10/2025 ActiveStart: 08-10-2025 End: 40-11-0392ejqs 1 tablet by mouth once in the [...] 28 tablet 08/10/2025 08/24/2025 ActiveStart: 07-09-2025 End: 25-94-1333flhf 1 tablet by mouth once dailyAmoxicillin-Pot Clavulanate 875- 125 mg tablet Discontinued 1 TAB PO Daily July 09, 2025 12:00amOct2024 10:44amStart: 06-22-2025 End: 81-27-0252jbfd 1 tablet by mouth twice dailyamoxicillin-pot clavulanate (AUGMENTIN) 875-125 mg per tablet TAKE 1 TABLET BY MOUTH TWICE DAILY FOR 14 DAYS 06/22/2025 07/16/2025 Discontinued (Therapy completed)Start: 04-11-2025 End: 32-73-7161djbn 1 tablet by mouth once in the morningamoxicillin-pot clavulanate (AUGMENTIN) 875-125 mg per tablet Indications: Diabetic ulcer of right midfoot associated with type 2 diabetes mellitus, with muscle involvement without evidence of necrosis (CMS-HCC) Take 1 tablet by mouth in the morning and 1 tablet before bedtime. Do all this for 10 days. 20 tablet 04/11/2025 04/21/2025 ActiveStart: 03-28-2025 End: 58-84-0077axjl 1 tablet by mouth once in the [...] sources)Platelet Aggregation Inhibitor, Nonsteroidal Anti-inflammatory Drug Start: 15-30-9622wyps 1 tablet by mouth once dailyAspirin 81 mg tablet Active 81 MG PO Daily 90 90 2 June 28, 2025 12:00am Complies with drug therapy atorvastatin 80 mg oral tablet (20 sources)HMG-CoA Reductase InhibitorStart: 08-10-2025 End: 17-99-3686omhr 1 tablet by mouth once daily at breakfastatorvastatin (LIPITOR) 80 mg tablet Indications: hyperlipidemia Take 1 tablet (80 mg total) by mouth daily with breakfast for 360 days Indications: excessive fat in the blood. 90 tablet 3 08/10/2025 08/05/2026 ActiveStart: 01-18-2020 End: 53-94-1076cenz 1 tablet by mouth once dailyAtorvastatin 40 mg tablet Discontinued 40 MG PO Daily January 18, 2020 1:00am September 120:44am Lipitor Activeblood-glucose meter kit (15 sources)Start: 66-65-8158jsrnf-glucose meter kit Indications: Type 2 diabetes mellitus with foot ulcer, with long-term current use of insulin ([facility]) Use as instructed 1 each 05/16/2025 Activecelecoxib 100 mg oral capsule (20 sources)Nonsteroidal Anti-inflammatory DrugStart: 05-10-2025 End: 17-65-0304niyj 1 capsule by mouth in the morningcelecoxib (CeleBREX) 100 mg capsule Indications: Chronic midline low back pain without sciatica Take 1 capsule (100 mg total) by mouth in the morning. 30 capsule 2 08/10/2025 Active cephalexin 500 mg oral capsule (2 sources)Cephalosporin AntibacterialStart: 01-09-2021 End: 44-15-0873elgi 1 capsule by mouth three times dailycephALEXin (KEFLEX) 500 MG capsule Take 1 (one) capsule (500 mg total) by mouth 3 (three) times a day for 14 days . 42 capsule 0 01/09/2021 01/23/2021 Activecholecalciferol 0.125 mg oral capsule (20 sources)Vitamin DStart: 42-92-9602pmio 1 capsule by mouth once daily Cholecalciferol (Vitamin D3) 125 mcg (5,000 unit) capsule Active 125 MCG PO Daily February 02, 2024 12:00am Complies with drug therapyStart: 46-19-8685yjaa 1 capsule by mouth in the morningcholecalciferol (Vitamin D-3) 25 MCG (1000 UT) capsule Take 1,000 Units by mouth in the morning. 0 01/04/2023 Activetake 1 capsule by mouth in the morningcholecalciferol, vitamin D3, 2,000 units capsule Take 1 capsule (2,000 Units total) by mouth in themorning. Activeclopidogrel 75 mg oral tablet (18 sources)P2Y12 Platelet InhibitorStart: 56-32-9790kgasleazdzS (PLAVIX) 75 mg tablet Take 1 tablet (75 mg total) by mouth. 06/29/2025 Activecollagenase 0.25 unt/mg topical ointment (13 sources)Collagen-specific EnzymeStart: 32-04-0037ajoqaheonui (SantyL) ointment Indications: Ulcer of right foot [...] 100 mg oral capsule (16 sources)Tetracycline-class DrugStart: 15-17-5392mqim 1 capsule by mouth twice dailydoxycycline (MONODOX) [...] oral tablet (20 sources)Thiazide DiureticStart: 06-19-2021 End: 89-30-0607kxkx 1 tablet by mouth once dailyhydroCHLOROthiazide (HYDRODIURIL) 12.5 mg tablet Indications: Benign essential HTN Take 1 tablet (12 .5 mg total) by mouth daily. 90 tablet 08/10/2025 Active3 ml insulin glargine 100 unt/ml pen injector (20 sources)Insulin AnalogStart: 21-80-4625jefuteu glargine (LANTUS SOLOSTAR U- 100 INSULIN) 100 unit/mL (3 mL) insulin pen Indications: Type 2diabetes mellitus with foot ulcer, with long-term current use of insulin ([facility]) Inject 36 Units under the skin in the morning and at bedtime. 09/21/2025 ActiveStart: 08-10-2025 End: 73-49-2208qeeuir 36 [IU] by subcutaneous injection in the morninginsulin glargine (LANTUS SOLOSTAR U-100 INSULIN) 100 unit/mL (3 mL) insulin pen Indications: Type 2diabetes mellitus with foot ulcer, with long-term current use of insulin ([facility]) Inject 36 Units under the skin in the morning and 36 Units before bedtime. 66 mL 1 08/10/2025 08/10/2025 Discontinued (Patient Never Started This Medication)Start: 05-10-2025 End: 63-86-3570ehmcsg 30 [IU] by subcutaneous injection in the morninginsulin glargine (LANTUS SOLOSTAR U-100 INSULIN) 100 unit/mL (3 mL) insulin pen Indications: Type 2diabetes mellitus with foot ulcer, with long-term current use of insulin ([facility]) Inject 30 Units under the skin in the morning and 30 Units before bedtime. 18 mL 1 05/10/2025 08/10/2025 Discontinued (Reorder)Start: 04-26-2025 End: 18-16-9035mrnbyb 0.3 mL by subcutaneous injection once dailyinsulin glargine (LANTUS) 100 unit/mL injection Indications: Type 2 diabetes mellitus with foot ulcer, with long-term current use of insulin ([facility]) Inject 0.3 mL (30 Units total) under the skin nightly. 10 mL 1 04/26/2025 05/10/2025 DiscontinuedStart: 11-20-2020 End: 78-14-7720nydqpl 25 [IU] by subcutaneous injection once dailyinsulin glargine (LANTUS) 100 unit/mL injection Inject 25 (twenty five) Units under the skin nightly . 7.5 mL 0 11/20/2020 ActiveStart: 11-12-2020 End: 98-00-5957liyeigv glargine (LANTUS) injection 25 UnitsStart: 11-11-2020 End: 69-49-9615jriiqio glargine (LANTUS) injection 22 UnitsStart: 2020 End: 67-85-3581nckqgkk glargine (LANTUS) injection 25 UnitsStart: 11-09-2020 End: 70-39-2531tztkxfe glargine (LANTUS) injection 32 UnitsStart: 11-07-2020 End: 49-15-1575ehmrfgd glargine (LANTUS) injection 35 UnitsStart: 11-06-2020 End: 94-95-1126wmsufrr glargine (LANTUS) injection 25 UnitsStart: 01-18-2020 End: 23-39-6195frnogk 28 [IU] by subcutaneous injection once daily at bedtime Insulin Glargine (Lantus U-100 Insulin) 100 unit/mL Solution Discontinued 28 UNIT SUBCUT Daily at bedtime January 18, 2020 1:00am May 09, 2024 2:20pm Start: 01-18-2020 End: 58-46-8459ikaibx 38 [IU] by subcutaneous injection once daily in the morningInsulin Glargine 100 unit/mL (3 mL) insulin pen Discontinued 38 UNIT SUBCUT Every morning January 18, 2020 1:00am January 07, 2024 12:05pm End: 52-86-6773chyiae 0.28 mL by subcutaneous injection once dailyinsulin [...] Subcutaneous twice a day ActiveLantus Active End: 75-93-5367kjpnmr 38 [IU] by subcutaneous injection once daily in the morninginsulin glargine (LANTUS) 100 unit/mL injection Inject 38 Units under the skin daily AM . 0 11/21/2020 Discontinued (Stop Taking at Discharge) End: 32-21-3876qjrozl 32 [IU] by subcutaneous injection once daily at bedtime insulin glargine (LANTUS) 100 unit/mL injection Inject 32 Units under the skin nightly HS . 0 11/21/2020 Discontinued (Stop Taking at Discharge)insulin regular, human (NOVOLIN R INJECTION) (2 sources)insulin regular, human (NOVOLIN R INJECTION) by INJECTION(UNSPECIFIED PARENTERAL ROUTES) route. Active3 ml insulin aspart, human 100 unt/ml pen injector (20 sources)Insulin AnalogStart: 82-83-8531lmwrvoo aspart U-100 (NovoLOG) 100 unit/mL (3 mL) insulin pen Indications: Type 2 diabetes mellituswith foot ulcer, with long-term current use of insulin ([facility] Sliding scale with carb counting before meals three times per day. Max dose 30 units per day 09/21/2025 ActiveStart: 05-10-2025 End: 42-81-5143btyyrfi aspart U-100 (NovoLOG Flexpen U-100 Insulin) 100 unit/mL (3 mL) insulin pen Indications: Type 2 diabetes mellitus with foot ulcer, with long-term current use of insulin ([facility]) Sliding scale with pre meal blood sugars three times per day ( max dose 36 units/day) 15 mL 1 05/10/2025 08/10/20 25 Discontinued (Therapy completed)Start: 01-18-2020 End: 97-06-3217Zzidjoe Aspart U-100 (Novolog Flexpen U-100 Insulin) 100 unit/mL (3 mL) Insulin Pen Discontinued 0 UNIT SUBCUT As Directed January 18, 2020 1:00am May 09, 2024 2:20pm per sliding scale End: 47-18-4551skfkpeo aspart U-100 (NovoLOG) 100 unit/mL injection Inject under the skin. 04/26/2025 Discontinuedinsulin aspart (NovoLOG FLEXPEN) 100 UNIT/ML pen (If FSB 150-200; take 4 units,; 201-250, 6 UNITS,;251-300, 8 UNITS; 301-350, 10 UNITS; 350-401, 12 UNITS; Max: 40 units/day) 0 ActiveNovoLOG FlexPen 100 UNIT/ML 18 units with meals Subcutaneous twice a day ActiveNovoLOG Active End: 41-79-8165byasdie aspart U-100 (NovoLOG) 100 unit/mL injection Inject [...] 0.05 mg/ml ophthalmic solution (20 sources)Prostaglandin AnalogStart: 26-87-3068ounh 1 drop(s) into the eye(s) once daily at bedtimelatanoprost (XALATAN) 0.005 % ophthalmic solution Administer 1 drop into the left eye once daily atbedtime. INSTILL 1 DROP INTO LEFT EYE AT BEDTIME 03/28/2025 ActiveStart: 36-58-8762pnxr 1 drop(s) into the eye(s) once daily in the eveningLatanoprost Active 1 DROPS EYE-BOTH Daily February 02, 2024 12:00am FreeTextSi drop into affected eye in the evening Ophthalmic Once a day; Note: Source Status: Taking; Provider: Dora German (N PI: [id number])take 1 drop(s) into the eye(s) once daily in the evening Latanoprost 0.005 % 1 drop into affected eye in the evening Ophthalmic Once a day Activelisinopril 10 mg oral tablet (20 sources)Angiotensin Converting Enzyme InhibitorStart: 01-18-2020 End: 83-68-7919azgz 1 tablet by mouth in the morninglisinopriL (PRINIVIL,ZESTRIL) 10 mg tablet Indications: Benign essential HTN , Type 2 diabetes mellitus with foot ulcer, with long-term current use of insulin ([facility]) Take 1 tablet (10 mg total) bymouth in the morning for 360 days. 90 tablet 3 08/10/2025 08/05/2026 ActiveLisinopril ActiveNetarsudil-Latanoprost (ROCKLATAN OP) (1 source)take 1 drop(s) into the eye(s) at bedtimeNetarsudil-Latanoprost (ROCKLATAN OP) Administer 1 drop into affected eye(s) at bedtime 0 Ausqfh55 hr niacin 500 mg extended release oral tablet (7 sources)Nicotinic AcidStart: 55-68-1158befc 1 tablet by mouth once daily niacin (NIASPAN) 500 mg CR tablet Indications: Mixed hyperlipidemia due to type 2 diabetes mellitus(CMS-HCC) Take 1 tablet (500 mg total) by mouth nightly. 90 tablet 1 08/10/2025 Activesemaglutide (OZEMPIC) 0.25 mg or 0.5 mg (2 mg/3 mL) pen injector (11 sources)Start: 49-05-0902lamdjfxjoas (OZEMPIC) 0.25 mg or 0.5 mg (2 mg/3 mL) pen injector Indications: Type 2 diabetes mellitus with other circulatory complication, with long-term current use of insulin ([facility]) Inject 0.5 mg under the skin every 7 days. 2 mL 08/10/2025 ActiveStart: 07-16-2025 End: 33-76-0415zqvxgjsismp (OZEMPIC) 0.25 mg or 0.5 mg (2 mg/3 mL) pen injector Indications: Type 2 diabetes mellitus with other circulatory complication, with long-term current use of insulin ([facility]) Inject 0.25mg under the skin every 7 days. 2 mL 07/16/2025 08/10/2025 Discontinued (Reorder)Start: 07-16-2025 semaglutide (OZEMPIC) 0.25 mg or 0.5 mg (2 mg/3 mL) pen injector Indications: Type 2 diabetes mellitus with other circulatory complication, with long-term current use of insulin ([facility]) Inject 0.25mg under the skin every 7 days. 2 mL 07/16/2025 Activesucralfate 1000 mg oral tablet (2 sources)Aluminum ComplexStart: 04-10-2025 End: 67-38-4900qluw 1 tablet by mouth twice dailysucralfate (CARAFATE) 1 gram tablet Indications: Diabetic gastroparesis (HCC) Take 1 tablet by mouth two times a day. Start taking medication after procedure for 4 weeks. 60 tablet 04/10/2025 05/10/2025 Activevonoprazan (VOQUEZNA) 10 mg tablet (1 source)Start: 09-21-2025 End: 96-54-2722arnd 1 tablet by mouth in the morningvonoprazan (VOQUEZNA) 10 mg tablet Indications: Gastroesophageal reflux disease, unspecified whether esophagitis present Take 10 mg by mouth in the morning for 30 days. 30 tablet 09/21/2025 10/21/2025 Active Completed/Discontinued Medications MedicationDrug Class(es)DatesSig (Normalized)Sig (Original)acetaminophen 325 mg oral tablet (6 sources)Start: 11-06-2020 End: 95-90-4857btve 1 tablet by mouth every six hours as neededacetaminophen (TYLENOL) tablet 650 mg End: 93-22-6081dqse 2 tablets by mouth every six hours as needed for headache acetaminophen (TYLENOL) 500 mg tablet Indications: headache disorder Take 2 tablets (1,000 mg total) by mouth every 6 (six) hours as needed Indications: headache. 04/26/2025 Discontinuedacetaminophen 325 mg / oxyCODONE hydrochloride 5 mg oral tablet (1 source)Opioid AgonistStart: 11-07-2020 End: 33-93-9525rxnl 1 tablet by mouth every four hours as neededoxyCODONE- acetaminophen (PERCOCET) 5-325 mg per tablet 1 tabletalbuterol 0.833 mg/ml / ipratropium bromide 0.167 mg/ml inhalant solution (1 source)Anticholinergic, beta2-Adrenergic AgonistStart: 11-05-2020 End: 44-88-2152bcbz 3 mL by inhalation every two hours as needed3 mL, Inhalation, Every 2 hour PRN (RT), wheezing, shortness of breath, Starting Wed11/05/20 at 1920alteplase (CATH BERTHA) injection 2 mg (1 source)Start: 11-19-2020 End: 24-09-7162deffghuzh (CATH BERTHA) injection 2 mgcalcium chloride 0.0014 meq/ml / potassium chloride 0.004 meq/ml / sodium chloride 0.103 meq/ml / sodium lactate 0.028 meq/ml injectable solution (3 sources)Start: 11-11-2020 End: 26-97-3907lryi 100 mL intravenous route every owzh562 mL/hr, Intravenous, Continuous, Starting 11/11/20 at 1800, PACU (only)Start: 11-05-2020 End: 56-88-5682hmzwuwyo Ringers infusionceFAZolin 1000 mg injection (14 sources)Cephalosporin AntibacterialStart: 12-11-2020 End: 34-83-2716tgOOUugir (ANCEF) 200 mg/ml injectionStart: 11-19-2020 End: 31-11-9700npig 2000 mg intravenous route every eight hoursceFAZolin 2,000 mg IV (Outpatient Therapy) Indications: Osteomyelitis, Charcot's foot, tunneling wound Infuse 2 (two) g (2,000 mg total) into a venous catheter every 8 (eight) hours End: 12/19/20 180vial 0 11/19/2020 12/19/2020 ActiveStart: 11-07-2020 End: 31-51-5198fshk 2000 mg intravenous route every eight hoursceFAZolin (ANCEF) IVPB 2 g (premix)Clotrimazole (5 sources)Azole AntifungalClotrimazole Not-TakingClotrimazole ActiveDorzolamide HCl-Timolol Mal (5 sources)Dorzolamide HCl-Timolol Mal Not-TakingDorzolamide HCl-Timolol Mal Activefamotidine 40 mg oral tablet (20 sources)Histamine-2 Receptor AntagonistStart: 07-05-2025 End: 20-88-4040crok 1 tablet by mouth in the morning, [...] ) Complies with drug therapyStart: 08-25-2023 End: 54-25-1514ggarluzwgf (PEPCID) 40 mg tablet Take 40 mg by mouth. 01/07/2024 ActiveStart: 01-50-4720scsu 1 tablet by mouth in the morningfamotidine (Pepcid) 20 MG tablet Take 20 mg by mouth in the morning. 0 03/05/2023 Bosrqe62 ml glucose 500 mg/ml prefilled syringe (1 source)Start: 2020 End: 78-34-0286pzwwfjys 50 % in water (D50W) syringe 50 mLStart: 2020 End: 04-62-2275beraipdb 50 % in water (D50W) syringe 50 mL1 ml heparin sodium, porcine 5000 unt/ml injection (3 sources)Unfractionated Heparin, Anti-coagulantStart: 11-08-2020 End: 15-60-7306zektuen (porcine) injection 5,000 UnitsStart: 11-05-2020 End: 46-75-7854laurdl 5000 [IU] by subcutaneous injection every eight hours5,000 Units, Subcutaneous, Every 8 hours scheduled, First dose on Wed11/05/20 at 2200 Notify physician if patient refuses.1 ml HYDROmorphone hydrochloride 1 mg/ml injection (1 source)Opioid AgonistStart: 11-08-2020 End: 14-86-9622VXADIwaeyltls (DILAUDID) injection 1 mgStart: 11-08-2020 End: 17-51-5412SNRGXitouggyf (DILAUDID) injection 1 mgInsulin Aspart U-100 (Novolog Flexpen U-100 Insulin) 100 unit/mL (3 mL) Insulin Pen (3 sources)Start: 01-18-2020 End: 15-66-9855Inbbmda Aspart U-100 (Novolog Flexpen U-100 Insulin) 100 unit/mL (3 mL) Insulin Pen Discontinued 0 UNIT SUBCUT As Directed January 18, 2020 1:00am May 09, 2024 2:20pm per sliding scaleStart: 2097Susawuc Aspart U-100 (Novolog Flexpen U-100 Insulin) 100 unit/mL (3 mL) Insulin Pen Active 0 UNIT SUBCUT As Directed January 18, 2020 1:00am per sliding scaleInsulin Glargine (Lantus U-100 Insulin) 100 unit/mL Solution (3 sources)Start: 01-18-2020 End: 43-38-8594piwqof 28 [IU] by subcutaneous injection once daily at bedtime Insulin Glargine (Lantus U-100 Insulin) 100 unit/mL Solution Discontinued 28 UNIT SUBCUT Daily at bedtime January 18, 2020 1:00am May 09, 2024 2:20pm Start: 22-69-8610rbgymj 28 [IU] by subcutaneous injection once daily at bedtime Insulin Glargine (Lantus U-100 Insulin) 100 unit/mL Solution Active 28 UNIT SUBCUT Daily at bedtimeFebr2019 1:00aminsulin isophane, human 100 unt/ml injectable suspension (13 sources)Start: 07-09-2025 End: 14-90-3760pofyqxw NPH (HumuLIN N,NovoLIN N) 100 unit/mL injection Indications: Type 2 diabetes mellitus with foot ulcer, with long-term current use of insulin ([facility]) 38 units in the morning and 40 units at nighttime 10 mL 3 08/10/2025 09/21/2025 DiscontinuedStart: 93-47-3350Gvuzdno Nph Isoph U-100 Human (Novolin N Nph U-100 Insulin) 100 unit/mL suspension Active 38 UNIT SUBCUT Bedtime July 09, 2025 12:00am Complies with drug therapy3 ml insulin lispro 100 unt/ml pen injector (20 sources)Insulin AnalogStart: 03-04-2025 End: 95-87-9159liazhpk lispro (ADMELOG SOLOSTAR U-100 INSULIN) 100 unit/mL insulin pen Indications: Type 2 diabetes mellitus with foot ulcer, with long- term current use of insulin ([facility]) 70-150 0 units 151-174 2units 175-199 4 units 200-224 6 units 225-249 8 units 250-274 10 units 275-299 12 units 300-350 14 units >350 16 units and call provider 15 mL 04/26/2025 05/10/2025 DiscontinuedStart: 11-06-2020 End: 08-41-2043tjnsqxz lispro (HumaLOG) 100 unit/mL injection Sliding scale before meals: BG 150-200 = +1 unit Humalog, 201-250=+2 Units Humalog, 251-300=+3 Units Humalog, 301-350= +4 Humalog, >351 =+5 units Humalog . 10 mL 0 11/20/2020 ActiveLidocaine (2 sources)Antiarrhythmic, Amide Local AnestheticStart: 11-19-2020 End: 26-36-4850hvqd 1 mL intradermal route every twenty-four hours as needed lidocaine 10 mg/mL (1 %) injection 1 mLStart: 11-06-2020 End: 62-89-8042zrtjpeeas 10 mg/mL (1 %) injection - ADS [...] 40 mg/ml injection (1 source)Start: 11-12-2020 End: 79-06-1661rrwxjcuun sulfate 2 g in sterile water (SW) 50 mL IVPBmetFORMIN hydrochloride 1000 mg oral tablet (20 sources)BiguanideStart: 01-18-2020 End: 69-09-5911lhic 1 tablet by mouth twice dailyMetformin 1,000 mg tablet Discontinued 1000 MG PO Twice daily January 18, 2020 1:00am January 07, 2024 12:05pmmetFORMIN HCl Activemetoclopramide 15 mg/actuat nasal spray (4 sources)Dopamine-2 Receptor AntagonistStart: 04-10-2025 End: 68-14-4781vpnqrxcibcxqdz HCl (GIMOTI) 15 mg/spray spray with pump Administer 1 spray into each nostril in themorning and 1 spray at noon and 1 spray in the evening and 1 spray before bedtime. 04/10/2025 04/26/2025 DiscontinuedStart: 32-49-1394cfrhjqjdpjkyzp HCl (GIMOTI) 15 mg/spray nasal spray Indications: Diabetic gastroparesis (HCC) Use 1spray in the nose four times daily. 9.8 mL 2 04/10/2025 ActiveStart: 11-13-2020 End: 86-01-6824bkyelbdcrrmucf (REGLAN) injection 10 mgnaloxone (NARCAN) injection 0.1 mg (1 source)Start: 11-07-2020 End: 55-73-6095cvugihko (NARCAN) injection 0.1 mgomeprazole 40 mg delayed release oral capsule (14 sources)Proton Pump InhibitorStart: 08-25-2022 End: 34-80-1597Nbgxsasywl 40 MG 1 capsule 30 minutes before morning meal and evening meal Orally twice a day for 30 day(s) Aug, Not-Taking2 ml ondansetron 2 mg/ml injection (1 source)Serotonin-3 Receptor AntagonistStart: 11-05-2020 End: 28-62-5173aqro 4 mg intravenous route every six hours as needed4 mg, Intravenous, Every 6 hours PRN, nausea, vomiting, Starting 11/05/20 at 1920 pantoprazole 40 mg delayed release oral tablet (20 sources)Proton Pump InhibitorStart: 08-25-2023 End: 01-46-3328fpnt 1 tablet by mouth in the morningpantoprazole (PROTONIX) 40 mg EC tablet Indications: Gastroesophageal reflux disease, unspecified whether esophagitis present Take 1 tablet (40 mg total) by mouth in the morning. 90 tablet Discontinued (Alternate therapy)Start: 02-02-2020 End: 06-91-8207iqxy 1 tablet by mouth in the morningpantoprazole (PROTONIX) 40 mg EC tablet Indications: Gastroesophageal reflux disease, unspecified whether esophagitis present Take 1 tablet (40 mg total) by mouth in the morning. 90 tablet 5Activepiperacillin 3000 mg / tazobactam 375 mg injection (1 source)Penicillin-class Antibacterial, beta Lactamase InhibitorStart: 11-05-2020 End: 08-68-0197jryw 3.375 g intravenous route every eight hourspiperacillin- tazobactam (ZOSYN) IVPB 3.375 g (premix)100 ml potassium chloride 0.2 meq/ml injection (7 sources)Start: 11-16-2020 End: 78-43-6516aazz 20 mEq intravenous route every two hourspotassium chloride 20 mEq in 100 mL IVPBStart: 11-12-2020 End: 76-29-2372ouhjzuxls chloride 20 mEq in 100 mL IVPBStart: 11-09-2020 End: 81-68-2268pqur 20 mEq intravenous route every two hourspotassium chloride 20 mEq in 100 mL IVPBStart: 11-06-2020 End: 21-04-8796hqhkdwldv chloride SA (K-DUR,KLOR-CON) CR tablet 40 mEqStart: 11-05-2020 End: 26-32-9099seygkcuxc chloride SA (K-DUR,KLOR-CON) CR tablet 20 mEqpotassium phosphate 30 mmol in sodium chloride 0.9 % (NS) 250 mL IVPB (1 source)Start: 11-05-2020 End: 65-52-3281qhxaoille phosphate 30 mmol in sodium chloride 0.9 % (NS) 250 mL HFST629 ml sodium chloride 9 mg/ml prefilled syringe (4 sources)Start: 11-19-2020 End: 41-15-7220urqalv chloride (PF) (NS) flush 10 mLStart: 11-08-2020 End: 36-17-0064nnusam chloride 0.9% (NS)Start: 11-06-2020 End: 68-70-6144hkxxfi chloride 0.9% (NS) bolus 2,000 mLsodium chloride (PF) (NS) 0.9 % contrast line flush 10 mL (1 source)Start: 11-05-2020 End: 42-31-5323jhjatn chloride (PF) (NS) 0.9 % contrast line flush 10 mLsodium phosphate, dibasic 59.3 mg/ml / sodium phosphate, monobasic 161 mg/ml enema (1 source)Start: 11-16-2020 End: 40-86-4511augizg phosphates (FLEETS ADULT) 19-7 gram/118 mL enema 1 each technetium (Tc-99m) (SULFUR COLLOID) solution 1 millicurie (1 source)Start: 11-13-2020 End: 35-00-9695bhrmdazajm (Tc-99m) (SULFUR COLLOID) solution 1 millicurie traMADol hydrochloride 50 mg oral tablet (1 source)Opioid AgonistStart: 11-07-2020 End: 17-30-8584lvyGFZwY (ULTRAM) tablet 50 mgStart: 11-07-2020 End: 17-80-0582ztzVCKlW (ULTRAM) tablet 50 mgvancomycin (VANCOCIN) 1500 mg in sodium chloride 0.9% (NS) 500 mL IVPB (1 source)Start: 11-05-2020 End: 91-55-3736zgco 1500 mg intravenous route every twenty-four hoursvancomycin (VANCOCIN) 1500 mg in sodium chloride 0.9% (NS) 500 mL IVPB Problems Active Problems Problem ClassificationProblemDateDocumented DateEpisodic/ChronicAbdominal pain (13 sources)Epigastric pain; Translations: [Epigastric pain]88-23-9590Xoxpynhn Administrative/social admission (1 source)Dietary counseling and surveillanceEpisodicAnxiety disorders (3 sources)Generalized anxiety disorder; Translations: [Generalized anxiety disorder]Onset: 659198-29-3956PccuytgXcgwtkfjk infection; unspecified site (1 source)Infection by methicillin sensitive Staphylococcus aureus; Translations: [MSSA (methicillin susceptible Staphylococcus aureus) infection] EpisodicChronic ulcer of skin (20 sources)Non-pressure chronic ulcer of other part of right foot with fat layer exposed; Translations: [Ulcerof other part of foot]Onset: 03-21-2021 91-24-5129CeaphtnBnkhzhbgco associated with dizziness or vertigo (4 sources)Dizziness and giddiness; Translations: [DIZZINESS AND GIDDINESS] Onset: 69-31-6577FdxwycaeNktnoqip mellitus with complications (20 sources)Type 2 diabetes mellitus with hyperglycemia; Translations: [Type II diabetes mellitus uncontrolled]Onset: 959686-93-2317BvqzttwXjkcnyja mellitus without complication (20 sources)Type 2 diabetes mellitus; Translations: [Type 2 diabetes mellitus without complications]Onset: 589962-03-5507WpdmlhaQbewefg on above:Problem List clean-up per request of Phys. EHR CmteDisorders of lipid metabolism (20 sources)Hyperlipidemia; Translations: [Hyperlipidemia, unspecified]Onset: 24-98-4095FafezeeNdfnvhmxqz disorders (20 sources)Gastroesophageal reflux disease; Translations: [Gastro-esophageal reflux disease without esophagitis]Onset: 54-22-1159FogkqfvIuazrtr on above: Problem List clean-up per request of Phys. EHR CmteEssential hypertension (20 sources)Hypertensive disorder; Translations: [Essential (primary) hypertension]Onset: 80-67-8084CtmthusDvnbyovmq arthritis and osteomyelitis (except that caused by tuberculosis or sexually transmitted disease) (20 sources)Acute osteomyelitis of foot; Translations: [Chronic osteomyelitis of foot with draining sinus]Onset: 804622-11-8713GwudrwzLhzhrruwo arthritis and osteomyelitis (except that caused by tuberculosis or sexually transmitted di sease) (5 sources)Subacute osteomyelitis of left foot; Translations: [Subacute osteomyelitis of left foot (HCC)]Nausea and vomiting (20 sources)Nausea and vomiting; Translations: [Nausea with vomiting, unspecified]Onset: 24-36-2968EcvidncbCqqdjkgzymq deficiencies (1 source)Vitamin D deficiency; Translations: [Vitamin D deficiency, unspecified]Onset: 770492-08-5302RorzrfxIterbntxs or stenosis of precerebral arteries (9 sources)Bilateral carotid artery occlusion; Translations: [Occlusion and stenosis of bilateral carotid arteries]Onset: 170988-12-3342ViliesbHaors acquired deformities (1 source)Retrolisthesis; Translations: [Spondylolisthesis, site unspecified] Onset: 904212-56-6850ZuheqbkwYucas aftercare (1 source)long term (current) use of oral hypoglycemic drugs; Translations: [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 USE ORAL HYPOGLYCEMIC DX]Onset: 03-91-5023CedazvcmOychl aftercare (1 source)Encounter for therapeutic drug level monitoring; Translations: [ENC THERAPEUTC DRUG LEVL MONITORING]Onset: 73-97-8705OtienhifYjxcw aftercare (1 source)Other shoe repairman (current) drug therapy; Translations: [OTH MCFP CURRENT DRUG THERAPY]Onset: 83-71-0082AiljiyyvNmjio aftercare (8 sources)Long-term current use of insulin; Translations: [long term (current) use of insulin]61-09-8150QbdwaxykYmbui aftercare (2 sources)Wound finding; Translations: [Encounter for other specified aftercare]35-59-9942AdydbsqsHfjdv bone disease and musculoskeletal deformities (1 source)Amputated foot; Translations: [Acquired absence of left foot]Onset: 340431-32-5073WklizhaRlekb bone disease and musculoskeletal deformities (20 sources)History of amputation of right foot; Translations: [Acquired absence of right foot]Onset: 554983-74-6352OotaelqAofdm bone disease and musculoskeletal deformities (1 source)Acquired absence of right foot; Translations: [Acquired absence of right foot]Onset: 22-16-7137NpnblbhMknad disorders of stomach and duodenum (3 sources)Gastroparesis; Translations: [Gastroparesis]Onset: 29-14-8623Tindnyvt Other disorders of stomach and duodenum (7 sources)Gastroparesis syndrome; Translations: [Gastroparesis]05-20-2025 EpisodicOther liver diseases (20 sources)Fatty (change of) liver, not elsewhere classified; Translations: [Other chronic nonalcoholic liver disease]Onset: 490702-36-1322Qyjlowl Other liver diseases (5 sources)Steatosis of liver; Translations: [Fatty (change of) liver, not elsewhere classified]44-53-0358XuxniqkEnofs liver diseases (14 sources)Alkaline phosphatase raised; Translations: [Abnormal levels of other serum enzymes]Onset: 535455-21-0932WzrtbgbfAcayz nervous system disorders (5 sources)Peripheral nerve disease ; Translations: [Polyneuropathy, unspecified]08-06-0659MrbdvcfObfrg nervous system disorders (2 sources)Other chronic pain; Translations: [Other chronic pain]Onset: 71-98-2980UzgfdzcHowjv nervous system disorders (1 source)Abnormal gait; Translations: [Unspecified abnormalities of gait and mobility]Onset: 358404-10-9579HsmzsxytBapqx non-traumatic joint disorders (2 sources)Charcot arthropathy of joint of ankle; Translations: [Charcot's joint of ankle, unspecified laterality]ChronicOther non-traumatic joint disorders (20 sources)Charcot's joint of foot; Translations: [Charcot's joint, left ankle and foot]Onset: 632687-65-0660BxfssviKokzp nutritional; endocrine; and metabolic disorders (3 sources)Obese class II; Translations: [Body mass index (BMI) 36.0-36.9, adult]ChronicOther nutritional; endocrine; and metabolic disorders (1 source)Body mass index (BMI) 36.0-36.9, adultChronicOther nutritional; endocrine; and metabolic disorders (1 source)Hypoproteinemia; Translations: [Other disorders of glycoprotein metabolism]Onset: 819774-07-7327RxhsmkgRbjns nutritional; endocrine; and metabolic disorders (1 source)Hypocalcemia; Translations: [Hypocalcemia]Onset: 995002-17-4159 ChronicOther nutritional; endocrine; and metabolic disorders (8 sources)Body mass index 30+ - obesity; Translations: [Obesity, unspecified] Onset: 229701-89-5450AvrjucyTevdh skin disorders (1 source)Atrophic disorder of skin, unspecifiedEpisodicOther upper respiratory disease (1 source)Chronic rhinitis; Translations: [Chronic rhinitis]Onset: 04-14-2023 66-46-8234XiqefjxWbdkileokk and visceral atherosclerosis (20 sources)Peripheral vascular disease, unspecified; Translations: [Peripheral vascular disease, unspecified]Onset: 333303-87-3037BsefbizLyscdnjw codes; unclassified (1 source)Family history of cardiac disorder; Translations: [Family history of ischemic heart disease and other diseases of the circulatory system]Onset: 123309-32-3365UzzvmdaqCppabxn detachments; defects; vascular occlusion; and retinopathy (5 sources)Retinal disorder; 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] 75-88-2906JwzbvuaSwtqirffwgi; intervertebral disc disorders; other back problems (20 sources)Chronic low back pain; Translations: [Chronic midline low back pain without sciatica]Onset: 020033-34-0737YsgwaorzFposaghrmmrw (2 sources)DXOnset: 66-38-6257Iwuboimowsfy (1 source)New PatientOnset: 37-50-4282Ouwlitmzrrjt (6 sources)FU PRNUnclassified (2 sources)Low back pain, unspecified; Translations: [Low back pain, unspecified]Onset: 74-62-5347Tilrfjmypfkj (1 source)Wound CheckOnset: 64-80-8263Ayfurxmrxlid (1 source)Wound on FootOnset: 36-86-1004Ishaggweheiy (1 source)transitonal care visitOnset: 58-87-3481Eadzdzasdado (1 source)Establish CareOnset: 04-26-2025 Past or Other Problems Problem ClassificationProblemDateDocumented DateEpisodic/ChronicDiabetes mellitus without complication (3 sources)Hyperglycemia; Translations: [Hyperglycemia, unspecified]Onset: 294205-91-4423ByveccuaIserbpma of upper limb (1 source)Closed multiple fractures of hand bones; Translations: [Unspecified fracture of unspecified wrist and hand, initial encounter for closed fracture] Onset: 527951-93-9896RsktjmbvPqmezig and fatigue (3 sources)Fatigue; Translations: [Other fatigue]Onset: EpisodicMood disorders (20 sources)Mood disordersOnset: 02-07-2021 Resolved: Open wounds of extremities (20 sources)Open wound of foot with complication; Translations: [Unspecified open wound, left foot, initial encounter]Onset: 430642-98-1603Tbxlqhqj Other aftercare (4 sources)long term (current) use of insulin; Translations: [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 SUPERVISOR CURRENT USE OF INSULIN]Onset: 66-41-0219ZcsufxkqLzrkh aftercare (2 sources)Encounter for other specified aftercare; Translations: [Encounter for other specified aftercare]Onset: 57-65-5390SldqkitwQnwng non-traumatic joint disorders (20 sources)Instability of joint of right ankle; Translations: [Other instability, right ankle]Onset: 493171-95-8345PtzlvfjkGbffi screening for suspected conditions (not mental disorders or infectious disease) (4 sources)Patient encounter status; Translations: [Encounter for screening for malignant neoplasm of colon]Onset: 002155-82-5470ErcclglhYpazz skin disorders (1 source)Corns and callosities; Translations: [Corns and callosities]Onset: 37-43-2199NqemjxytWcqpnueyhi (except in labor) (20 sources)Sepsis; Translations: [Sepsis, unspecified organism]Onset: 02-07-2021 Resolved: 341232-03-3596VqtzocjjKguc and subcutaneous tissue infections (3 sources)Cutaneous abscess of left foot; Translations: [Cellulitis]Onset: 218575-12-7205BpkijmolSvwqysoztgai (3 sources)Open wound of left vapv66-03-2852 Results Test NameValueInterpretationReference RangeFacilityPOCT Hemoglobin A1con 70-46-4486WHB Target < 8YeThedacare Medical Center Shawano AanfaaCjG0i (Bld) [Mass fraction]9.0 %Abnormal4 - 7 %[facility] SystemInterpretation and review of laboratory resultsAbnormalProFirelands Regional Medical Center [facility] SystemProFirelands Regional Medical [facility] Campus SystemCT angio neckon 36-67-3715XA angio neckTRINITY [facility] [place] [address] CT Scan Report Signed Patient: More Kingsley MR#: [id number] 125 : 1965 Acct:[id number] Age/Sex: 59 / M ADM Date: 08/22/25 Loc: CT Room: Type: [facility] Attending Dr: Cathy Leggett BURNER HAND-C Copies to: Cathy Leggett APRN Ordering Provider: Cathy Leggett APRN Date of Service: 08/22/25 CT/CT angio head: I65.23 - Occlusion and stenosis of bilateral carotid ney... ([id number]) CT/CT angio neck: I65.23 - Occlusion and [...] Kidd M.D. 08/22/2025 5:14 PM Dictation Location: [place] [address] Transcribed By: AMBER 08/22/251713 Dictated By: Blair Kidd II, MD 08/22/251703 Signed By: 08/22/251713NoCone Health Alamance Regional Physician GroupISTAT XRay CREon 90-41-3230YBCYM GFR>60.0NoCone Health Alamance Regional Physician GroupComment on above:Result Comment: PERFORMED BY: [place] [address] PATHOLOGIST GENERAL EDUCATION INSTRUCTOR CHE TAVARES M.D.Performed By: #### ISCRE #### [place] [address] USANo Panel InformationOrdered By: Cathy Leggett on 76-71-2873Tdeqkyu Estimated GFR (eGFR)> 60.0[facility] Whole blood creatinine measurementOrdered By: Cathy Leggett on 08-22-2025 Creatinine [Mass/Vol]1.3 mg/dL0.6-1.3FAultman HospitalComment on above:ER/ESD physician is notified/shown all ISTAT results.Critical values may be confirmed by laboratorytesting ifdeemed necessary by ER attending doctor. Result Comment: ER/ESD physician is notified/shown all ISTAT results. Critical values may be confirmed by laboratory testing if deemed necessary by ER attending doctor.Performed By: #### ISCRE #### [facility] [address] [place] [address] USALIPID PROFILEon 16-36-7931Egwoezigvls [Mass/Vol]198 mg/dL Gqetlx835-573WhaDqhwjhWoman'S Hospital Of TexasComment on above:Performed By: #### CBCA, CMP #### [facility] ([id number]) [address] [place] [address]Vxaipfkpoir in HDL [Mass/Vol]34 mg/dLLow>39ProWoman'S Hospital Of TexasComment on above:Result Comment: HDL <40 mg/dL - High Risk HDL > or = 40mg/dL- Desirable HDL >60 mg/dL - Negative RiskPerformed By: #### CBCA, CMP #### [facility] ([id number]) [address] [place] [address]Dehpmaizlid in LDL [Mass/Vol]128 mg/dLNormal<130ProWoman'S Hospital Of TexasComment on above:Result Comment: LDL <100 mg/dL - Desirable LDL >160 mg/dL - High RiskPerformed By: #### CBCA, CMP #### [facility] ([id number]) [address] [place] [address] 755[address]SJAYAQDYQTT:HDL5.8High1.0-5.0ProWoman'S Hospital Of TexasComment on above:Performed By: #### CBCA, CMP #### [facility] ([id number]) [address] [place] [address] 110[address]Chiisbwqrrxr [Mass/Vol]179 mg/kOFzgd49-436CcoUytudi [place] HospitalComment on above:Performed By: #### CBCA, CMP #### [facility] ([id number]) [address] [place] [address] 49678TXVJ LOW BWDQRQFSPYK54 mg/dLHigh0-30[facility] Comment on above:Performed By: #### CBCA, CMP #### [facility] ([id number]) [address] [place] [address] 20183Dbovvjqvgedx 37-22-8373Dbhvgprklc Clr Calc Pwadcquz18.67Normal [facility] Physician GroupComment on above:Result Comment: PERFORMED BY: [place] [address] PATHOLOGIST GENERAL EDUCATION INSTRUCTOR CHE TAVARES M.D.Performed By: #### BUN, CREAT #### [facility] [address] [place] [address] USAGFR/1.73 sq M.predicted MDRD (S/P/Bld) [Vol rate/Area] 57.276 mL/min/{1.73_m2}NormalThe [facility] Physician [facility] HospitalComment on above: Performed By: #### BUN, CREAT #### [place] [id number] USACreatinine [Mass/volume] in Serum or PlasmaOrdered By: Chan Quintanilla on 71-78-7843Hnxzvsqghh [Mass/Vol]1.42 mg/dLHigh0.70-1.30 [facility]rbana HospitalComment on above:Performed By: #### BUN, CREAT #### [facility] [address] [place], [place] [address] USANo Panel InformationOrdered By: Chan Quintanilla on 65-21-8948Vyrtxhtvx GFR (CKD-EPI)57.276 mL/MinMercy Health [facility] Hospital Pharmacy Creatinine Clearance (Chem72.67[facility]ana HospitalUrea nitrogen [Mass/volume] in Serum or PlasmaOrdered By: Chan Quintanilla on 09-38-3746Wnqv nitrogen [Mass/Vol]26 mg/dLHigh7-25[facility]rbana HospitalComment on above:Performed By: #### BUN, CREAT #### [facility] [address] [place] [id number] USAUS UNI ankle/arm indiceson 60-42-9475UN UNI ankle/arm indicesSelect Medical Specialty [facility] [address] [place] [address] Ultrasound Report Signed Patient: More Kingsley MR#: [id number] 125 : 1965 Acct:[id number] Age/Sex: 59 / M ADM Date: 06/28/25 Loc: [facility] Room: Type: [facility] Attending Dr: Chan Quintanilla MD [...] Quintanilla MD,FACS,FSVS 07/04/2025 1:41 PM Dictation Location: [place] [address] Tech: Soraida Tez Transcribed By: PWS 07/04/25 1341 Dictated By: Chan Quintanilla MD 07/04/25 1341 Signed By: 07/04/25 1341[facility] Physician GroupXR FOOT RT MIN 3 VWS WEIGHT BEARINGon 32-34-9124BK FOOT RT MIN 3 VWS WEIGHT BEARINGXR FOOT RT MIN 3 VWS WEIGHT BEARING XR FOOT RT MIN 3 VWS WEIGHT BEARING HISTORY: Right foot ulcer, with unspecified severity ([facility]). COMPARISON: 03/04/2025 IMPRESSION: Unchanged indication about the metatarsals. Progressive sclerosis and irregularity of the plantar aspect remnant tarsal/metatarsal are nonspecific, infection is possible. Correlate for associated soft tissue injury, consider MR, as appropriate. Plantar and Achilles calcaneal enthesophytes. Vascular calcifications. Finalized by Thomas Schrader MD on 06/12/2025 2:05 [facility] HospitalAR GENERIC UNSF RESULTSEE NOTEAbnormalUC West Chester HospitalComment on above:Result Comment: Test name Result Flag Units RefIntvl Testosterone, Total by Cottrell Blower 234.3 L ng/dL 300.0-890.0 This test was developed and its performance characteristics determined by [facility]. It has not been cleared or approved [...] Children, or Individuals on Testosterone-Suppressing Hormone Therapy) ([employer] test code 4962799). For individuals on testosterone hormone therapy, refer to cisgender male reference intervals. No reference intervals have been established for males younger than 18 years or for cisgender females. For a complete set of all established reference intervals, refer to ltd[employer] ([employer])/Tests/Pub/9315002. This test was developed and its performance characteristics determined by [facility]. It has not been cleared or approved by the [place] Food and Drug Administration. This test was performed in a CLIA certified laboratory and is intended for clinical purposes. Performed By: [facility] [address] [place] [address] Signwriter: Warren Simmons MD, PhD CLIA Number: [id number] By: #### ARELY, CMP #### [facility] ([id number]) [address] [place] [address] 90434AVDKORQJNsv 05-80-9563Voyinjzje [Mass/Vol]2.0 mg/dLNormal 1.8-2.6UC [facility] HospitalComment on above:Performed By: #### ARELY, CMP #### [facility] ([id number]) [address] [place] [address] 74[address]SXTBABVUX SPECIFIC ANTIGEN SCREENon 52-35-7117BHOOOIOXG SPEC ANT0.86 ng/mLNormal0.00-4.00ProWoman'S Hospital Of TexasComment on above:Result Comment: The method used for this test is [employer] DXI chemiluminescent immunoassay. Values obtained by different assay methods cannot be used interchangeably.Performed By: #### ARELY, CMP #### [facility] ([id number]) [address] [place] [address] 58214PBEJKJTEYMYS, TOTAL AND FREE, Son 06-91-0425TPHCADPGMQSR, TOTAL AND FREE, STESTF TESTOSTERONE, TOTAL AND FREE, S CancelledNormalProWoman'S Hospital Of TexasVITAMIN B12on 01-72-2084Zhesrqqqy (Vitamin B12) [Mass/Vol]1009 pg/zLCavn634-548UfqVbwuno [facility] CenterComment on above:Performed By: #### ARELY, CMP #### [facility] ([id number]) [address] [place] [address] 728[address]XMOAPNP D 25 HYDROXYon 68-26-5213OPQYLBH D 25 HYD TOT84.2 ng/mL Vmdkcx09.0-100.0ProWoman'S Hospital Of TexasComment on above:Order Comment: Vitamin D status 25 [place] Vitamin D Deficiency <20 ng/mLInsufficiency 20-29 ng/mLSufficiency 30-100 ng/mLToxicity >100 ng/mLNOTE: A pediatric reference range has not been established by the battery hand of this kit. The [place] [employer] recommends a Vitamin D level of = or >20ng/mL in infants and children.Performed By: #### CBCA, CMP #### [facility] ([id number]) [address] [facility], [place], [place] [address]HT SPINE LUMB COMP INCL BEND 6+ VWSon 24-97-6366CG SPINE LUMB COMP INCL BEND 6+ VWSXR [...] Vivien Feliz MD on 05/04/2025 3:25 PMNormalProMedica [facility] WITH AUTO DIFFERENTIALon 93-85-9291OQMUQPPZG ABSOLUTE COUNT (10*3/UL) BY AUTOMATED COUNT0.1 10*3/uLNormal0.0-0.2[facility] Comment on above:Performed By: #### CBCA #### [facility] ([facility]) [address] [place] [address] VIRBASOPHILS RELATIVE PERCENT BY AUTOMATED COUNT1.3 %Normal ProMedicProvidence Holy Cross Medical CenterComment on above:Performed By: #### CBCA #### [facility] ([facility]) [address] [place] [address] VIRCELLAVISION DIFFERENTIAL TYPEAUTOMATED DIFFERENTIALNormal [facility] HospitalComment on above:Performed By: #### CBCA #### [facility] ([facility]) [address] [place] [address] VIREosinophils (Bld) [#/Vol]0.2 10*3/uLNormal0.0-0.4[facility] HospitalComment on above:Performed By: #### CBCA #### [facility] ([facility]) [address] [place] [address] VIREOSINOPHILS RELATIVE PERCENT BY AUTOMATED COUNT2.5 %Normal [facility] HospitalCombrighton hospital on above:Performed By: #### CBCA #### [facility] ([facility]) [address] [place] [address] VIRErythrocyte distribution width (RBC) [Ratio]15.2 %High 11.5-15[facility] HospitalCombrighton hospital on above:Performed By: #### CBCA #### [facility] ([facility]) [address] [place] [address] VIRHematocrit (Bld) [Volume fraction]42.3 %Carnqd60-61EhfCnpewgUC West Chester HospitalComment on above:Performed By: #### CBCA #### [facility] ([facility]) [address] [place] [address] VIRHemoglobin (Bld) [Mass/Vol]14.1 g/eAAfclkx45-24PzdVmcbrfUC West [facility] HospitalCombrighton hospital on above:Performed By: #### CBCA #### [facility] ([facility]) [address] [place] [address] VIRLYMPHOCYTES ABSOLUTE COUNT (10*3/UL) BY AUTOMATED COUNT1.9 10*3/uLNormal1.0-3.5PPomerene HospitalCombrighton hospital on above:Performed By: #### CBCA #### [facility] [facility]) [address] [place] [address] VIRLYMPHOCYTES RELATIVE PERCENT BY AUTOMATED COUNT22.1 %Normal [facility] HospitalComment on above:Performed By: #### CBCA #### [facility] ([facility]) [address] [place] [address] VIRMCH (RBC) [Entitic mass]27.5 rdNsplyo88-96BxhSemwbhWoman'S Hospital Of TexasComment on above:Performed By: #### CBCA #### [facility] ([facility]) [address] [place] [address] VIRMCHC (RBC) [Mass/Vol]33.4 g/dFGdmxmo73-72RlqYqqybrWoman'S Hospital Of TexasComment on above:Performed By: #### CBCA #### [facility] ([facility]) [address] [place] [address] VIRMCV (RBC) [Entitic vol]82 bMUsvlre48-528MghEsombr Fremont HospitalComment on above:Performed By: #### CBCA #### [facility] ([facility]) [address] [place] [address] VIRMONOCYTES ABSOLUTE COUNT (10*3/UL) BY AUTOMATED COUNT0.9 10*3/uLNormal0.0-0.9[facility]Comb[facility] on above:Performed By: #### CBCA #### [facility] ([facility]) [address] [place] [address] VIRMONOCYTES RELATIVE PERCENT BY AUTOMATED COUNT10.6 %Normal [facility] HospitalComment on above:Performed By: #### CBCA #### [facility] ([facility]) [address] [place] [address] VIRNEUTROPHILS ABSOLUTE COUNT BY AUTOMATED COUNT5.5 10*3/uL Normal1.5-6.6[facility]Combright[facility] on above:Performed By: #### CBCA #### [facility] ([facility]) [address] [place] [address] VIRNEUTROPHILS RELATIVE PERCENT BY AUTOMATED COUNT63.5 %Normal [facility] HospitalComment on above:Performed By: #### CBCA #### [facility] ([facility]) [address] [place] [address] VIRPlatelet mean volume (Bld) [Entitic vol]9.5 fLNormal7-12 [facility] HospitalComment on above:Performed By: #### CBCA #### [facility] ([facility]) [address] [place] [address] VIRPlatelets (Bld) [#/Vol]298 10*3/lTOohsqn283-605BusBirymoUC West Chester HospitalComment on above:Performed By: #### CBCA #### [facility] ([facility]) [address] [place] [address] VIRRBC COUNT5.14 X10E12/LNormal4.1-5.7[facility] HospitalComment on above:Performed By: #### CBCA #### [facility] ([facility]) [address] [place] [address] VIRWBC (Bld) [#/Vol]8.7 10*3/uLNormal4-11[facility] HospitalComment on above:Performed By: #### CBCA #### [facility] ([facility]) [address] [place] [address] VIRCOMPREHENSIVE METABOLIC PANELon 81-75-0334Dedjpio [Mass/Vol] 3.7 g/dLNormal3.2-5.3PPomerene HospitalComment on above:Performed By: #### CMP #### [facility] ([facility]) [address] [place] [address] VIRALP [Catalytic activity/Vol]102 U/JYzkqss46-774HwaSckctpUC West Chester HospitalComment on above:Performed By: #### CMP #### [facility] ([facility]) [address] [place] [address] VIRALT [Catalytic activity/Vol]14 U/LNormal<=40ProWoman'S Hospital Of TexasComment on above:Performed By: #### CMP #### [facility] ([facility]) [address] [place] [address] VIRAnion gap [Moles/Vol]10 mmol/LNormal5-15ProWoman'S Hospital Of TexasComment on above:Performed By: #### CMP #### [facility] ([facility]) [address] [place] [address] VIRAST [Catalytic activity/Vol]18 U/LNormal<=41ProWoman'S Hospital Of TexasComment on above:Performed By: #### CMP #### [facility] ([facility]) [address] [place] [address] VIRBilirubin [Mass/Vol]0.9 mg/dLNormal0.3-1.2PPomerene HospitalComment on above:Performed By: #### CMP #### [facility] ([facility]) [address] [place] [address] VIRCalcium [Mass/Vol]9.6 mg/dLNormal8.5-10.5PPomerene HospitalComment on above:Performed By: #### CMP #### [facility] ([facility]) [address] [place] [address] VIRChloride [Moles/Vol]100 mmol/AHtbqhe44-721IhlKlapdrWoman'S Hospital Of TexasComment on above:Performed By: #### CMP #### [facility] ([facility]) [address] [place] [address] VIRCO2 [Moles/Vol]22 mmol/YCjnazc33-92RvcNukbnmPomerene HospitalComment on above:Performed By: #### CMP #### [facility] ([facility]) [address] [place] [address] VIRCreatinine [Mass/Vol]1.61 mg/dLHigh0.60-1.30[facility] HospitalComment on above:Result Comment: METHOD TRACEABLE TO IDMS STANDARDPerformed By: #### CMP #### [facility] ([facility]) [address] [place] [address] VIRGFR/1.73 sq M.predicted among non-blacks MDRD (S/P/Bld) [Vol rate/Area]49 mL/min/{1.73_m2}Low>=60ProWoman'S Hospital Of TexasComment on above: Result Comment: Reported eGFR is based on the CKD-EPI 2020 equation that does not use a race coefficient.Performed By: #### CMP #### [facility] ([facility]) [address] [place] [address] VIRGlucose [Mass/Vol]323 mg/lFDpzv94-15WwiFolhhuWoman'S Hospital Of TexasComment on above:Performed By: #### CMP #### [facility] ([facility]) [address] [place] [address] VIRPotassium [Moles/Vol]4.1 mmol/LNormal3.5-5.0ProWoman'S Hospital Of TexasComment on above:Performed By: #### CMP #### [facility] ([facility]) [address] [place] [address] VIRProtein [Mass/Vol]8.9 g/dLHigh6.0-8.0[facility] HospitalComment on above:Performed By: #### CMP #### [facility] ([facility]) [address] [place] [address] VIRSodium [Moles/Vol]132 mmol/RLaw227-505QlyZkvtycWoman'S Hospital Of TexasComment on above:Performed By: #### CMP #### [facility] ([facility]) [address] [place] [address] VIRUrea nitrogen [Mass/Vol]28 mg/dLHigh5-23ProWoman'S Hospital Of TexasComment on above:Performed By: #### CMP #### [facility] ([facility]) [address] [place] [address] VIRHEMOGLOBIN A1Con 41-79-7819Iprhbtx [Mass/Vol]283 mg/dLNormal ProMdekalb regional medical centera [facility]andro Medical CenterComment on above:Performed By: #### HA1C #### [facility] ([facility]) [address] [place] [address] MDWAtF9m (Bld) [Mass fraction]11.5 %High4.4-5.6ProWoman'S Hospital Of TexasComment on above:Result Comment: ADA Guidelines Result HgbA1c Normal : less than 5.7 % Prediabetes : 5.7 % to 6.4 % Diabetes : > 6.4 % Use with caution in patients with abnormal hemoglobin variants as the half-life of red blood cells and in vivo glycation rates are affected.Performed By: #### HA1C #### [facility] ([facility]) [address] [place] [address] VIRDebridementon [id number] Vaughn 04/24/2025 12:02 PM Debridement Performed by: SCOTT Vaughn Authorized by: SCOTT Vaughn Associated wounds: Wound 03/28/25 1 Diabetic Ulcer Foot Right;Plantar Consent: Consent obtained: Verbal and written Consent given by: Patient Risks discussed: Yes Debridement Details: Performed by: BURNER HAND Type: Sharp Level: Subcutaneous Tissue, Devitalized tissue and other material debrided: Subcutaneous tissue, fibrin, biofilm and callus Anesthesia administration: topical Anesthesia: EMLA Total Surface Area Debrided cm^2: 7.26 Specimen Taken: None Instrument: Curette Amount of bleeding: Small Bleeding Control: Pressure Response to treatment: Procedure was tolerated well Tissue Applied?: NoMANUALLY TRANSCRIBED RESULTSSouthern [facility] Medical CenterNo Panel Informationon [id number] IN CLINIC TODAY.MANUALLY TRANSCRIBED RESULTSNo Panel InformationOrdered By: Sulma Humphreys on [id number]n Ohio Medical Center NURSING PROGon [id number] PROGHNO ID: [id number] Author: ROBBIN CONTI RN Service: ? Author [...] same thing I was told. No instructions given.NormalSouthpointEleanor Slater Hospital [id number] (GENSSP) MORE KINGSLEY JR. ([id number]) 1965 M Date Time Provider Department 04/18/25 JEROME DEL TORO GENVIKAS During your visit today, we recorded the following information about you: Tamara Goncalves RN 04/19/2025 8:06 AM Addendum G-POEM for date of service 04/25/2025. Appeal with all information including letter, study, JAMIN notes, GES result, EGG result, EGD result, CT result, faxed to [employer]/Appeals Dept at fax [phone] with confirmation. Appeal also mailed out to [employer]/Appeals Dept to the address provided. Copy placed in shared clinical office filing cabinet. Tamara Goncalves RN 05/03/2025 10:35 AM Addendum Email received from [place]/Pre-Access Denials Team: We are glad to inform you that your appeal was successfully overturned and CPT 04566 is now authorized and test needs to [...] Fully Assessed Reason for Visit: Care Coordination [6398] Cmt: Appeal for GPOEM denial Prescriptions as [...] (None) Encounter Status:Closed by TAMARA GONCALVES on 04/18/25[facility] [id number] (GENSSP) MORE KINGSLEY JR. ([id number]) 1965 M Date Time Provider Department 04/11/25 JEROME DEL TORO During your visit today, we recorded the following information about you: Jeremiah Stiles RN 04/11/2025 12:55 PM Signed PA for Gimoti initiated electronically through [facility] site with Anderson Code 2S6S26 started by [employer] at [phone] with fax# [phone]. Awaiting response [facility] [employer] ID# [id number] Rx Grp RXAETD Tiff Mejias LPN 04/11/2025 [...] PM PA for Gimoti initiated electronically through [facility] site with Anderson Code 2S6S26 started by [employer] at [phone] with fax# [phone]. Awaiting response [facility] [employer] ID# [id number] Rx Grp RXAETD >> MartinReba alejandrojaylenMATTY 04/11/2025 3:19 PM >> TIFF MEJIAS Wed April 11, 2025 3:19 PM Med approved thru 11/21/25 Problem List As Of Date: 04/11/2025 (None) Encounter Status:Closed by JEREMIAH STILES on 04/11/25[facility] [id number] Vaughn 04/11/2025 12:18 PM Debridement Performed by: SCOTT Vaughn Authorized by: SCOTT Vaughn Associated wounds: Wound 03/28/25 1 Diabetic Ulcer Foot Right;Plantar Consent: Consent obtained: Verbal and written Consent given by: Patient Risks discussed: Yes Debridement Details: Performed by: BURNER HAND Type: Sharp Level: Subcutaneous Tissue, Devitalized tissue and other material debrided: Subcutaneous tissue, callus and fibrin Anesthesia administration: topical Anesthesia: EMLA Total Surface Area Debrided cm^2: 7.78 Specimen Taken: None Instrument: Curette Amount of bleeding: Medium Bleeding Control: Pressure Response to treatment: Procedure was tolerated well Tissue Applied?: NoMANUALLY TRANSCRIBED RESULTSMount Ascutney HospitalTimely Network SystemXeroform 4x4on 67-09-7523Gnprzyi in clinic todayMANUALLY TRANSCRIBED RESULTSBarberton Citizens HospitalGood Photo SystemACETYLCHOLINE REC BINDING ABon [id number] BINDING, QUALNegativeNormalNegativeSoutsymmes hospitale HospitalComment on above:Order Comment: Specimen Type: BLOOD SPECIMEN Ordering Facility: [facility] Address: [address] [place], [place] [address]Result Comment: Anti-acetylcholine receptor binding antibody test is used as an aid in diagnosis ofmyasthenia gravis. A negative result cannot exclude myasthenia gravis. Clinical correlation is required.Performed By: #### ACHRAB #### [facility] CLIA [id number] [address] [place] [address] [place] [address] [place] AMERICAAcetylcholine receptor binding Ab (S) [Moles/Vol]<0.02Normal<0.21[facility]pointe HospitalComment on above: Order Comment: Specimen Type: BLOOD SPECIMEN Ordering Facility: [facility] Address: [address] [place], [place] [address]Performed By: #### ACHRAB #### [facility] CLIA [id number] [address] [place], [place] [address] [place] OF AMERICAAMINO ACIDS, PLASMA W/ CONSULTATIONon 23-72-5536Aqjhztk [Moles/Vol]412 umol/PPiilgz645-560Avirrqruszr HospitalComment on above:Order Comment: Specimen Type: BLOOD SPECIMEN Ordering Facility: [facility] Address: [address] [place], [place] [address]Performed By: #### PAABI #### [facility] CLIA [id number] [address] [place] [address] [place] AMERICAAlloisoleucine [Moles/Vol]<2 Normal0-2[facility] HospitalComment on above:Order Comment: Specimen Type: BLOOD SPECIMEN Ordering Facility: [facility] Address: [address] [place], [place] [address]Performed By: #### PAABI #### [facility] CLIA [id number] [address] [place] [address] [place] AMERICAAlpha aminoadipate [Moles/Vol]<0Otwfrj2-3Cdwrycslfbp HospitalComment on above:Order Comment: Specimen Type: BLOOD SPECIMEN Ordering Facility: [facility] Address: [address] [place], [place] [address]Performed By: #### PAABI #### [facility] CLIA [id number] [address] [place], [place] [address] [place] OF AMERICAAMINO ACID CONSULTATION, PLASMANormalSellis fischel cancer center HospitalComment on above:Order Comment: Specimen Type: BLOOD SPECIMEN Ordering Facility: [facility] Address: [address] [place], [place] [address]Result Comment: This plasma amino acid analysis is mainly notable for low levels of serine and glycine. Low levels of plasma serine and glycine is potentially related to the patient's clinical history ofdiabetes. Reference intervals from Jovani E, Pat MG, Amarjit MANDEEP, and Anderson DK: Biochemical Genetics: A Laboratory Manual, Copyright 1989 by [employer] Reference intervals not established for some amino acids. This test was developed and its performance characteristics determined by the [facility] Department of Pathology and Laboratory Medicine. It has not been cleared or approved by the FDA. The [facility] Department of Pathology and Laboratory Medicine is regulated under CLIA as qualified to perform high-complexity testing. This test is used for clinical purposes. It should not be regarded as investigational or for research.Performed By: #### PAABI #### [facility] CLIA [id number] [address] [place] [address] [place] OF AMERICAAMINO ACIDS REVIEW, PLASMA Reviewed by Forrest Gomez MD, Ph.D ([id number])[facility] on above:Order Comment: Specimen Type: BLOOD SPECIMEN Ordering Facility: [facility] Address: [address] [place], [place] [address]Performed By: #### PAABI #### [facility] CLIA [id number] [address] [place] [address] [place] AMERICAArginine [Moles/Vol]73 umol/OMkzvab37-503RqydnkezhemSaint Joseph Health Center on above:Order Comment: Specimen Type: BLOOD SPECIMEN Ordering Facility: [facility] Address: [address] [place], [place] [address]Performed By: #### PAABI #### [facility] CLIA [id number] [address] [place] [address] [place] AMERICAAsparagine [Moles/Vol]31 umol/KMxe80-12Ixeqnldjcrl HospitalComment on above:Order Comment: Specimen Type: BLOOD SPECIMEN Ordering Facility: [facility] Address: [address] [place], [place] [address]Performed By: #### PAABI #### [facility] CLIA [id number] [address] [place] [address] [place] AMERICAAspartate [Moles/Vol]3 umol/LNormal1-25[facility] HospitalComment on above:Order Comment: Specimen Type: BLOOD SPECIMEN Ordering Facility: [facility] Address: [address] [place], [place] [address]Performed By: #### PAABI #### [facility] CLIA [id number] [address] [place] [address], [facility]95 [place] OF AMERICACitrulline [Moles/Vol]38 umol/YCnatnn04-80Gzcycdwwmtz HospitalComment on above:Order Comment: Specimen Type: BLOOD SPECIMEN Ordering Facility: [facility] Address: [address] [place], [place] [address]Performed By: #### PAABI #### [facility] CLIA [id number] [address] [place], [place] [address] [place] AMERICACystine [Moles/Vol]50 umol/L Normal5-82[facility] HospitalComment on above:Order Comment: Specimen Type: BLOOD SPECIMEN Ordering Facility: [facility] Address: [address] [place], [place] [address]Performed By: #### PAABI #### [facility] CLIA [id number] [address] [place], [place] [address] [place] AMERICAGlutamate [Moles/Vol]82 umol/DTzxeuq41-770Veqwndmmtdr HospitalComment on above:Order Comment: Specimen Type: BLOOD SPECIMEN Ordering Facility: [facility] Address: [address] [place], [place] [address]Performed By: #### PAABI #### [facility] CLIA [id number] [address] [place], [place] [address] [place] AMERICAGlutamine [Moles/Vol]478 umol/YTooins196-027Tupzxswyupa HospitalComment on above:Order Comment: Specimen Type: BLOOD SPECIMEN Ordering Facility: [facility] Address: [address] [place], [place] [address]Performed By: #### PAABI #### [facility] CLIA [id number] [address] [place], [place] [address] [place] AMERICAGlycine [Moles/Vol]125 umol/SZhb740-271Bmsdfrkjruk HospitalComment on above:Order Comment: Specimen Type: BLOOD SPECIMEN Ordering Facility: [facility] Address: [address] [place], [place] [address]Performed By: #### PAABI #### [facility] CLIA [id number] [address] [place], [place] [address] [place] AMERICAHistidine [Moles/Vol]53 umol/RYtb86-013Daqisqcurwz HospitalComment on above:Order Comment: Specimen Type: BLOOD SPECIMEN Ordering Facility: [facility] Address: [address] [place], [place] [address]Performed By: #### PAABI #### [facility] CLIA [id number] [address] [place], [place] [address] [place] AMERICAHydroxylysine [Moles/Vol]<2 High<=0Southpoint HospitalComment on above:Order Comment: Specimen Type: BLOOD SPECIMEN Ordering Facility: [facility] Address: [address] [place], [place] [address]Performed By: #### PAABI #### [facility] CLIA [id number] [address] [place], [place] [address] [place] AMERICAHydroxyproline [Moles/Vol] NormalSouthpointe HospitalComment on above:Order Comment: Specimen Type: BLOOD SPECIMEN Ordering Facility: [facility] Address: [address] [place], [place] [address]Result Comment: Unable to assay. Analytical difficultyPerformed By: #### PAABI #### [facility] CLIA [id number] [address] [place], [place] [address] [place] AMERICAIsoleucine [Moles/Vol]62 umol/UFcfnwr76-826Lnjpafihbbj HospitalComment on above:Order Comment: Specimen Type: BLOOD SPECIMEN Ordering Facility: [facility] Address: [address] [place], [place] [address]Performed By: #### PAABI #### [facility] CLIA [id number] [address] [place] [address] [place] AMERICALeucine [Moles/Vol]109 umol/TMnzmjh06-711Rtizehuoysz HospitalComment on above:Order Comment: Specimen Type: BLOOD SPECIMEN Ordering Facility: [facility] Address: [address] [place], [place] [address]Performed By: #### PAABI #### [facility] CLIA [id number] [address] [place], [place] [address] [place] AMERICALysine [Moles/Vol]143 umol/L Cnociv308-202Dtizxetaarj HospitalComment on above:Order Comment: Specimen Type: BLOOD SPECIMEN Ordering Facility: [facility] Address: [address] [place], [place] [address]Performed By: #### PAABI #### [facility] CLIA [id number] [address] [place], [place] [address] [place] AMERICAMethionine [Moles/Vol]19 umol/JFnpcja27-72Rtmcgjidhau HospitalComment on above:Order Comment: Specimen Type: BLOOD SPECIMEN Ordering Facility: [facility] Address: [address] [place], [place] [address]Performed By: #### PAABI #### [facility] CLIA [id number] [address] [place] [address], [place] [address] [place] AMERICAOrnithine [Moles/Vol]43 umol/CQfk14-038Fglmtiehjzd HospitalComment on above:Order Comment: Specimen Type: BLOOD SPECIMEN Ordering Facility: [facility] Address: [address] [place], [place] [address]Performed By: #### PAABI #### [facility] CLIA [id number] [address] [place] [address] [place] AMERICAPhenylalanine [Moles/Vol]63 umol/CLoqzdb89-55Qlrskxsbbkp HospitalComment on above:Order Comment: Specimen Type: BLOOD SPECIMEN Ordering Facility: [facility] Address: [address] [place], [place] [address]Performed By: #### PAABI #### [facility] CLIA [id number] [address] [place] [address] [place] AMERICAProline [Moles/Vol]237 umol/QKdexio51-448Scvrjmswyif HospitalComment on above:Order Comment: Specimen Type: BLOOD SPECIMEN Ordering Facility: [facility] Address: [address] [place], [place] [address]Performed By: #### PAABI #### [facility] CLIA [id number] [address] [place] [address], [place] [address] [place] AMERICASarcosine [Moles/Vol]<2High <=0[facility] HospitalComment on above:Order Comment: Specimen Type: BLOOD SPECIMEN Ordering Facility: [facility] Address: [address] [place], [place] [address]Performed By: #### PAABI #### [facility] CLIA [id number] [address] [place], [place] [address] [place] AMERICASerine [Moles/Vol]41 umol/L Xrc20-076Suuwmupmnho HospitalComment on above:Order Comment: Specimen Type: BLOOD SPECIMEN Ordering Facility: [facility] Address: [address] [place], [place] [address]Performed By: #### PAABI #### [facility] CLIA [id number] [address] [place], [place] [address] [place] AMERICATaurine [Moles/Vol]58 umol/L Mfuwrt79-846Eawndcxloye HospitalComment on above:Order Comment: Specimen Type: BLOOD SPECIMEN Ordering Facility: [facility] Address: [address] [place], [place] [address]Performed By: #### PAABI #### [facility] CLIA [id number] [address] [place], [place] [id number] [place] OF AMERICAThreonine [Moles/Vol]109 umol/[id number] HospitalComment on above:Order Comment: Specimen Type: BLOOD SPECIMEN Ordering Facility: [facility] Address: [address] [place], [place] [address]Performed By: #### PAABI #### [facility] CLIA [id number] [address] [place], [place] [id number] [place] AMERICATyrosine [Moles/Vol]68 umol/[id number] HospitalComment on above:Order Comment: Specimen Type: BLOOD SPECIMEN Ordering Facility[facility] Address: [address] [place], [place] [address]Performed By: #### PAABI #### [facility] CLIA [id number] [address] [place] [address] [place] AMERICAValine [Moles/Vol]227 umol/L Gvnldc167-190Cchxfokabpr HospitalComment on above:Order Comment: Specimen Type: BLOOD SPECIMEN Ordering Facility: [facility] Address: [address] [place], [place] [address]Performed By: #### PAABI #### [facility] CLIA [id number] [address] [place] [address] [place] AMERICACARNITINE FREE AND TOTAL, PLASMAon [id number] [Moles/Vol]39.0 umol/LSwfutk32.0-53.0[facility] Hospital Comment on above:Order Comment: Specimen Type: BLOOD SPECIMEN Ordering Facility: [facility] Address: [address] [place], [place] [address]Performed By: #### CARNPL #### [facility] CLIA [id number] [address] [place] [address] [place] AMERICACarnitine [Moles/Vol]49.3 umol/TOvyoxb84.4-66.0SoTwo Rivers Psychiatric HospitalComment on above:Order Comment: Specimen Type: BLOOD SPECIMEN Ordering Facility: [facility] Address: [address] [place], [place] [address]Performed By: #### CARNPL #### [facility] CLIA [id number] [address] [place] [address] [place] AMERICACarnitine esters [Moles/Vol] 10.3 umol/LNormal3.0-15.6SoTwo Rivers Psychiatric HospitalComment on above:Order Comment: Specimen Type: BLOOD SPECIMEN Ordering Facility: [facility] Address: [address] [place], [place] [address]Performed By: #### CARNPL #### [facility] [place] [id number] [address] [place] [address] [place] AMERICACarnitine esters/Carnitine.free (C0) [Molar ratio]0.5Xuoxpy4.1-0.7So[facility] Comment on above:Order Comment: Specimen Type: BLOOD SPECIMEN Ordering Facility: [facility] Address: [address] [place], [place] [address]Result Comment: NOTE: The determination of the plasma [...] determined by the Pathology and Laboratory Medicine [place] at the [facility]. The U.S. Food and Drug Administration has not approved or cleared this test, however, FDA clearance or approval is not currently required for clinical use.Performed By: #### CARNPL #### [facility] CLIA [id number] [address] AMERICACK SerPl-cCncon [id number] [Catalytic activity/Vol]41 U/IGww47-015Wdklveyqali HospitalComment on above: Order Comment: Specimen Type: BLOOD SPECIMEN Ordering Facility: [facility] Address: [address] [place], [place] [address]Performed By: #### 1988-5, 2157-6 #### [facility] [id number] [address] [place], [place] [address]CNOVon [phone] Office Visit (GENSSP) MORE KINGSLEY JR. ([id number]) 1965 M Date Time Provider Department 04/10/25 10:00 AM JEROME DEL TORO GENVIKAS During your visit today, we recorded the following information about you: Pulse Blood pressure Weight Height 101/minute 149/84 115 kg 1.778 m [place], [place] 04/10/2025 10:33 AM Signed What is [...] 10:33 AM Signed [facility] [place] Gastroparesis/Dysmotility Consultation SERVICE DATE: 04/10/2025 SERVICE TIME: 10:04 AM PRIMARY CARE PHYSICIAN: No primary care provider on file. Imad Asanew [address] [address] My final recommendations will be communicated back [...] obtained. NAME: More Kingsley Jr. CLINIC NO: [id number] DATE OF SERVICE: April 10, 2025 This [...] in today for surgical (more content not included)...NormalFort [facility] HospitalOVOffice Visit ([facility] MICHAELMORE Duran JRFrankie ([id number]) 1965 M Date Time Provider Department 04/10/25 9:00 AM COURTNEY GLOVER [facility] During your visit today, we recorded the following information about you: Courtney Glover PSYD 04/10/2025 1:08 PM Signed [facility] PSYCHOLOGICAL CONTACT Date of Encounter: [...] diffuse bodily pain, and chronic headaches/migraines since board runner. He denies any significant psychiatric history and [...] that his mattress qual (more content not included)...NormalFort Hamilton HospitalOVOffice Visit (GASTSP) MORE KINGSLEY ([id number]) 1965 M Date Time Provider Department 04/10/25 [...] Medications - Does the patient see a silk screen painter for chronic pain?No - Is the [...] - Has the patient met with a closing coordinator for diet recommendations with Gastroparesis? No - Jejunostomy (J-tube): _No - Gastrostomy (G-tube): No - Gastro-Jejunostomy (GJ-tube): _No - Nasojejunal (NJ-tube): _No - Nasogastric (NG-tube): _No - TPN (IV): _No - IV home hydration (IV): _No Medical Records - Has the patient had a smart capsule study completed? No - Does the patient have a history of any foregut surgery (vagotomy, hiatal hernia repair/RMAESH Fundoplication, Heller Myotomy, gastrectomy, gastric bypass)?No If [...] range = 0-60%). (more content not included)...Normal [facility] HospitalPNon [phone] (GENSSP) MORE KINGSLEY JR. ([id number]) 1965 M LV Date Time Provider Department [...] EUS, OR TUBE INTERVENTIONS [GI2] Order #: [id number] FUTURE sucralfate (CARAFATE) 1 gram tabletTake 1 [...] Encounter Status:Closed by JEROME DEL TORO on 04/10/25NoProMedica Tol[facility] Hospital-[facility] Behavioral Hospitalpierre [id number] [Mass/Vol]2.7 mg/dLHigh<0.9[facility] HospitalComment on above:Order Comment: Specimen Type: BLOOD SPECIMEN Ordering Facility: [facility] Address: [address]ENTER[facility]RI[facility] [place], [place] [address]Performed By: #### 1988-5, 2157-6 #### [facility] CLIA [id number] Omar method (Bld) [Velocity]on 45-62-3404ZVD (Bld) [Velocity]66 mm/hHigh0-15[facility] HospitalComment on above:Order Comment: Specimen Type: BLOOD SPECIMEN Ordering Facility: [facility] Address: [address] [place], [place] [address]Performed By: #### LACPYR #### [facility] CLIA [id number] [address] [place] [address] [place] ERNQWFOTOW49 Ab Ser-aCncon 95-14-9193Wztqtavxx decarboxylase 65 Ab Qn (S)<5.0Normal<=5.0[facility] HospitalComment on above:Order Comment: Specimen Type: BLOOD SPECIMEN Ordering Facility: [facility] Address: [address] [place], [place] [address]Result Comment: Anti-glutamic acid decarboxylase antibody (GAD65) test [...] correlation is required.Performed By: #### LACPYR #### [facility] CLIA [id number] [address] [place] [address] [place] AMERICAGlutamate decarboxylase 65 Ab Qn (S)on 93-90-3448STTVQIBI ACID DECARBOXYLAS AB QUALITATIVENegativeNormal NegativeSellis fischel cancer center HospitalComment on above:Order Comment: Specimen Type: BLOOD SPECIMEN Ordering Facility: [facility] Address: [address] [place], [place] [address]Performed By: #### LACPYR #### [facility] CLIA [id number] [address] [place] [address] [place] YRAFYQMVlA1b (Bld)on 04-10-2025 Average glucose Estimated from glycated hemoglobin (Bld) [Mass/Vol]269 mg/dL NormalSomissouri delta medical center HospitalComment on above:Order Comment: Specimen Type: BLOOD SPECIMEN Ordering Facility: [facility] Address: [address] [place], [place] [address]Result Comment: eAG: (Estimated average glucose) is a calculated value from HgbA1c and is accounts payable representative of the average blood glucose level in the last 2-3 month period.Performed By: #### 21390-6 #### [facility] CLIA [id number] [address] [place] [address] [place] OSVTXPUIvM7n (Bld) [Mass fraction] 11.0 %High4.3-5.6[facility] HospitalComment on above:Order Comment: Specimen Type: BLOOD SPECIMEN Ordering Facility: [facility] Address: [address] [place], [place] [address]Result Comment: [place] Diabetes [employer] guidelines indicate that patients with HgbA1c in the range 5.7-6.4% are at increased risk for development of diabetes, and intervention by lifestyle modification may be beneficial. HgbA1c greater or equal to 6.5% is considered diagnostic of diabetes.Performed By: #### 10424-8 #### [facility] CLIA [id number] [address] [place] [address] [place] AMERICAIgA SerPl-mCncon 04-10-2025 IgA [Mass/Vol]608 mg/dDNfkb35-338Mdiqozlvbsm HospitalComment on above:Order Comment: Specimen Type: BLOOD SPECIMEN Ordering Facility: [facility] Address: [address] [place], [place] [address]Performed By: #### 2465-3, 2458-8, 2472-9 #### [facility] CLIA [id number] [address] [place] [address] [place] AMERICAIgG SerPl-mCncon 04-10-2025 IgG [Mass/Vol]3158 mg/eMFkxm283-1906Zitdkiqiqwm HospitalComment on above:Order Comment: Specimen Type: BLOOD SPECIMEN Ordering Facility: [facility] Address: [address] [place], [place] [address]Performed By: #### LACPYR #### [facility] CLIA [id number] [address] [place] [address] [place] AMERICAIgM SerPl-mCncon 04-10-2025 IgM [Mass/Vol]110 mg/cBSpgqql82-264Qbhhbaueaqu HospitalComment on above:Order Comment: Specimen Type: BLOOD SPECIMEN Ordering Facility: [facility] Address: [address] [place], [place] [address]Performed By: #### LACPYR #### [facility] CLIA [id number] [address] [place] [address] [place] AMERICALDH SerPl-cCncon 04-10-2025 LDH [Catalytic activity/Vol]159 U/HJcsdfu169-705Mnadcxhtjdj HospitalComment on above:Order Comment: Specimen Type: BLOOD SPECIMEN Ordering Facility: [facility] Address: [address] [place], [place] [address]Performed By: #### LACPYR #### [facility] CLIA [id number] [address] [place] [address] [place] AMERICAORGANIC ACIDS UR, QUANT W/CONSULTon 58685-Jplfqktwfctwoelf/Creatinine (U) [Molar ratio]<0.4Low 0.6-17.7[facility] HospitalComment on above:Order Comment: Specimen Type: URINE SPECIMEN Ordering Facility: [facility] Address: [address] [place], [place] [address]Performed By: #### [id number] #### [facility] CLIA [id number] [address] [place] [address] [place]2- Hydroxyisovalerate/Creatinine (U) [Molar ratio]0.1 umol/mmolCrNormal0.0-0.1 [facility] HospitalComment on above:Order Comment: Specimen Type: URINE SPECIMEN Ordering Facility: [facility] Address: [address] [place], [place] [address]Performed By: #### [id number] #### [facility] CLIA [id number] [address] [place] [address] [place] YJOUFYV1-Zohwrj-0-hydroxybutyrate (C5-OH)/Creatinine (U) [Molar ratio]<0.0Fjwppx1.0-1.3[facility] HospitalComment on above:Order Comment: Specimen Type: URINE SPECIMEN Ordering Facility: [facility] Address: [address] [place], [place] [address]Performed By: #### [id number] #### [facility] CLIA [id number] [address] [place] [address] [place]2- Methylbutyrylglycine/Creatinine (U) [Molar ratio]<0.1Fivtzq8.0-0.4[facility] HospitalComment on above:Order Comment: Specimen Type: URINE SPECIMEN Ordering Facility: [facility] Address: [address] [place], [place] [address]Performed By: #### [id number] #### [facility] CLIA [id number] [address] [place] [address] [place]2-Methylcitrate/Creatinine (U) [Molar ratio]<1.4Nmesrk2.0-13.9[facility] HospitalComment on above:Order Comment: Specimen Type: URINE SPECIMEN Ordering Facility: [facility] Address: [address] [place], [place] [address]Performed By: #### [id number] #### [facility] CLIA [id number] [address] [place] [address] [place]2-Oxoadipate/Creatinine (U) [Molar ratio]<1.1Awhmuv3.0-3.3[facility] HospitalComment on above:Order Comment: Specimen Type: URINE SPECIMEN Ordering Facility: [facility] Address: [address] [place], [place] [address]Performed By: #### [id number] #### [facility] CLIA [id number] [address] [place] [address] [place]3- Hydroxyglutarate/Creatinine (U) [Molar ratio]0.0 umol/mmolCrNormal0.0-0.7 [facility] HospitalComment on above:Order Comment: Specimen Type: URINE SPECIMEN Ordering Facility: [facility] Address: [address] [place], [place] [address]Performed By: #### [id number] #### [facility] CLIA [id number] [address] [place] [address] [place]3- Hydroxyisovalerate/Creatinine (U) [Molar ratio]2.9 umol/mmolCrNormal2.1-27.3 [facility] HospitalComment on above:Order Comment: Specimen Type: URINE SPECIMEN Ordering Facility: [facility] Address: [address] [place], [place] [address]Performed By: #### [id number] #### [facility] CLIA [id number] [address] [place] [address] [place]3- Methylcrotonylglycine/Creatinine (U) [Molar ratio]<0.3Normal<0.3SSaint Joseph Hospital WestComment on above:Order Comment: Specimen Type: URINE SPECIMEN Ordering Facility: [facility] Address: [address] [place], [place] [address]Performed By: #### [id number] #### [facility] CLIA [id number] [address] [place] [address] [place]3- Methylglutaconate/Creatinine (U) [Molar ratio]0.3 umol/mmolCrNormal0.0-2.0 [facility] HospitalCombrighton hospital on above:Order Comment: Specimen Type: URINE SPECIMEN Ordering Facility: [facility] Address: [address] [place], [place] [address]Performed By: #### [id number] #### [facility] CLIA [id number] [address] [place] [address] [place]3-Methylglutarate/Creatinine (U) [Molar ratio]0.2 umol/mmolCrNormal0.0-0.6SoTwo Rivers Psychiatric HospitalComment on above:Order Comment: Specimen Type: URINE SPECIMEN Ordering Facility: [facility] Address: [address] [place], [place] [address]Performed By: #### [id number] #### [facility] CLIA [id number] [address] [place] [address] [place]4- Hydroxyphenylacetate/Creatinine (U) [Molar ratio]10.8 umol/mmolCrNormal5.7-147.5 [facility] HospitalComment on above:Order Comment: Specimen Type: URINE SPECIMEN Ordering Facility: [facility] Address: [address] [place], [place] [address]Performed By: #### [id number] #### [facility] CLIA [id number] [address] [place] [address] [place]4- Hydroxyphenyllactate/Creatinine (U) [Molar ratio]20.8 umol/mmolCrNormal1.3-23.0 [facility] HospitalComment on above:Order Comment: Specimen Type: URINE SPECIMEN Ordering Facility: [facility] Address: [address] [place], [place] [address]Performed By: #### [id number] #### [facility] CLIA [id number] [address] [place] [address] [place]4- Hydroxyphenylpyruvate/Creatinine (U) [Molar ratio]0.0 umol/mmolCrNormal<=0.0 [facility] HospitalCombrighton hospital on above:Order Comment: Specimen Type: URINE SPECIMEN Ordering Facility: [facility] Address: [address] [place], [place] [address]Performed By: #### [id number] #### [facility] CLIA [id number] [address] [place] [address] [place]5-Oxoproline/Creatinine (U) [Molar ratio]1.5 umol/mmolCrNormal0.4-3.1[facility] HospitalComment on above: Order Comment: Specimen Type: URINE SPECIMEN Ordering Facility: [facility] Address: [address] [place], [place] [address]Performed By: #### [id number] #### [facility] CLIA [id number] [address] [place] [address] [place] AMERICAAcetoacetate/Creatinine (U) [Molar ratio]<0.9High0.0-0.5[facility] HospitalComment on above:Order Comment: Specimen Type: URINE SPECIMEN Ordering Facility: [facility] Address: [address] [place], [place] [address]Performed By: #### [id number] #### [facility] CLIA [id number] [address] [place] [address] [place] AMERICAAconitate/Creatinine (U) [Molar ratio]19.3 umol/mmolCrNormal8.5-109.6SoTwo [facility] Psychiatric HospitalComment on above:Order Comment: Specimen Type: URINE SPECIMEN Ordering Facility: [facility] Address: [address] [place], [place] [address]Performed By: #### [id number] #### [facility] CLIA [id number] [address] [place] [address] [place] AMERICAAdipate/Creatinine (U) [Molar ratio]1.3 umol/mmolCrNormal0.3-9.2[facility] HospitalComment on above: Order Comment: Specimen Type: URINE SPECIMEN Ordering Facility: [facility] Address: [address] [place], [place] [address]Performed By: #### [id number] #### [facility] CLIA [id number] [address] [place] [address] [place] AMERICAAlpha hydroxybutyrate/Creatinine (U) [Molar ratio]1.0 umol/mmolCrNormal0.0-2.7 [facility] HospitalComment on above:Order Comment: Specimen Type: URINE SPECIMEN Ordering Facility: [facility] Address: [address] [place], [place] [address]Performed By: #### [id number] #### [facility] CLIA [id number] [address] [place] [address] [place] AMERICAAlpha ketoglutarate/Creatinine (U) [Molar ratio]6.2 umol/mmolCrNormal0.2-42.7 [facility] HospitalComment on above:Order Comment: Specimen Type: URINE SPECIMEN Ordering Facility: [facility] Address: [address] [place], [place] [address]Performed By: #### [id number] #### [facility] CLIA [id number] [address] [place] [address] [place] AMERICABenzoate/Creatinine (U) [Molar ratio]<12.9Dtglqg2.0-14.6[facility] HospitalComment on above:Order Comment: Specimen Type: URINE SPECIMEN Ordering Facility: [facility] Address: [address] [place], [place] [address]Performed By: #### [id number] #### [facility] CLIA [id number] [address] [place] [address] [place] AMERICABeta hydroxybutyrate/Creatinine (U) [Molar ratio]<1.0Wnkwat3.1-2.6[facility] HospitalComment on above:Order Comment: Specimen Type: URINE SPECIMEN Ordering Facility: [facility] Address: [address] [place], [place] [address]Performed By: #### [id number] #### [facility] CLIA [id number] [address] [place] [address] [place] AMERICAButyrylglycine/Creatinine (U) [Molar ratio]0.0 umol/mmolCrNormal0.0-0.7[facility] HospitalComment on above:Order Comment: Specimen Type: URINE SPECIMEN Ordering Facility: [facility] Address: [address] [place], [place] [address]Performed By: #### [id number] #### [facility] CLIA [id number] [address] [place] [address] [place] AMERICACreatinine (U) [Mass/Vol] 275.7 mg/pIWmgube72.8-314.5[facility] HospitalComment on above:Order Comment: Specimen Type: URINE SPECIMEN Ordering Facility: [facility] Address: [address] [place], [place] [address]Performed By: #### [id number] #### [facility] CLIA [id number] [address] [place] [address] [place] AMERICAEthylmalonate/Creatinine (U) [Molar ratio]2.7 umol/mmolCrNormal0.5-6.2[facility] HospitalComment on above: Order Comment: Specimen Type: URINE SPECIMEN Ordering Facility: [facility] Address: [address] [place], [place] [address]Performed By: #### [id number] #### [facility] CLIA [id number] [address] [place] [address] [place] AMERICAFumarate/Creatinine (U) [Molar ratio]1.9 umol/mmolCrNormal0.3-2.6[facility] HospitalComment on above: Order Comment: Specimen Type: URINE SPECIMEN Ordering Facility: [facility] Address: [address] [place], [place] [address]Performed By: #### [id number] #### [facility] CLIA [id number] [address] [place] [address] [place] AMERICAGlutarate/Creatinine (U) [Molar ratio]0.1 umol/mmolCrNormal0.0-1.4[facility] HospitalComment on above: Order Comment: Specimen Type: URINE SPECIMEN Ordering Facility: [facility] Address: [address] [place], [place] [address]Performed By: #### [id number] #### [facility] CLIA [id number] [address] [place] [address] [place] AMERICAHexanoylglycine/Creatinine (U) [Molar ratio]<0.3Thwcuz0.0-0.1[facility] HospitalComment on above:Order Comment: Specimen Type: URINE SPECIMEN Ordering Facility: [facility] Address: [address] [place], [place] [address]Performed By: #### [id number] #### [facility] CLIA [id number] [address] [place] [address] [place] AMERICAIsobutyrylglycine/Creatinine (U) [Molar ratio]<0.6Uhiwga3.0-1.2[facility] HospitalComment on above:Order Comment: Specimen Type: URINE SPECIMEN Ordering Facility: [facility] Address: [address] [place], [place] [address]Performed By: #### [id number] #### [facility] CLIA [id number] [address] [place] [address] [place] AMERICAIsocitrate/Creatinine (U) [Molar ratio]62.1 umol/mmolCrNormal9.1-271.9[facility] HospitalComment on above:Order Comment: Specimen Type: URINE SPECIMEN Ordering Facility: [facility] Address: [address] [place], [place] [address]Performed By: #### [id number] #### [facility] CLIA [id number] [address] [place] [address] [place] AMERICALactate/Creatinine (U) [Molar ratio]23.5 umol/mmolCrNormal2.9-47.2[facility] HospitalComment on above: Order Comment: Specimen Type: URINE SPECIMEN Ordering Facility: [facility] Address: [address] [place], [place] [address]Performed By: #### [id number] #### [facility] CLIA [id number] [address] [place] [address] [place] AMERICAMalate/Creatinine (U) [Molar ratio]0.8 umol/mmolCrNormal0.0-1.1[facility] HospitalComment on above:Order Comment: Specimen Type: URINE SPECIMEN Ordering Facility: [facility] Address: [address] [place], [place] [address]Performed By: #### [id number] #### [facility] CLIA [id number] [address] [place] [address] [place] AMERICAMalonate/Creatinine (U) [Molar ratio]0.0 umol/mmolCrNormal0.0-0.1[facility] HospitalComment on above: Order Comment: Specimen Type: URINE SPECIMEN Ordering Facility: [facility] Address: [address] [place], [place] [address]Performed By: #### [id number] #### [facility] CLIA [id number] [address] [place] [address] [place] AMERICAMethylmalonate/Creatinine (U) [Molar ratio]<0.6Cnzmes1.0-0.6[facility] HospitalComment on above:Order Comment: Specimen Type: URINE SPECIMEN Ordering Facility: [facility] Address: [address] [place], [place] [address]Performed By: #### [id number] #### [facility] CLIA [id number] [address] [place] [address] [place] AMERICAMethylsuccinate/Creatinine (U) [Molar ratio]0.4 umol/mmolCrNormal0.0-1.4[facility] HospitalComment on above:Order Comment: Specimen Type: URINE SPECIMEN Ordering Facility: [facility] Address: [address] [place], [place] [address]Performed By: #### [id number] #### [facility] CLIA [id number] [address] [place] [address] [place]-acetylaspartate/Creatinine (U) [Molar ratio]0.8 umol/mmolCrNormal0.1-8.9[facility] center HospitalComment on above:Order Comment: Specimen Type: URINE SPECIMEN Ordering Facility: [facility] Address: [address] [place], [place] [address]Performed By: #### [id number] #### [facility] CLIA [id number] [address] [place] [address] [place]-acetyltyrosine/Creatinine (U) [Molar ratio]0.3 umol/mmolCrNormal0.0-1.2[facility] HospitalComment on above:Order Comment: Specimen Type: URINE SPECIMEN Ordering Facility: [facility] Address: [address] [place], [place] [address]Performed By: #### [id number] #### [facility] CLIA [id number] [address] [place] [address] [place] AMERICAOxalate/Creatinine (U) [Molar ratio]1.7 umol/mmolCrNormal0.7-12.4[facility] HospitalComment on above: Order Comment: Specimen Type: URINE SPECIMEN Ordering Facility: [facility] Address: [address] [place], [place] [address]Performed By: #### [id number] #### [facility] CLIA [id number] [address] [place] [address] [place] AMERICAPyruvate/Creatinine (U) [Molar ratio]0.6 umol/mmolCrNormal0.1-2.6[facility] HospitalComment on above: Order Comment: Specimen Type: URINE SPECIMEN Ordering Facility: [facility] Address: [address] [place], [place] [address]Performed By: #### [id number] #### [facility] CLIA [id number] [address] [place], [place] [address] [place] AMERICASebacate (C8)/Creatinine (U) [Molar ratio]<3.4High0.0-0.3[facility] HospitalComment on above:Order Comment: Specimen Type: URINE SPECIMEN Ordering Facility: [facility] Address: [address] [place], [place] [address]Performed By: #### [id number] #### [facility] CLIA [id number] [address] [place] [address] [place] AMERICASuberate/Creatinine (U) [Molar ratio]0.9 umol/mmolCrNormal0.0-7.4[facility] HospitalComment on above: Order Comment: Specimen Type: URINE SPECIMEN Ordering Facility: [facility] Address: [address] [place], [place] [address]Performed By: #### [id number] #### [facility] CLIA [id number] [address] [place] [address] [place] AMERICASuberylglycine/Creatinine (U) [Molar ratio]0.0 umol/mmolCrNormal<=0.0[facility] HospitalComment on above: Order Comment: Specimen Type: URINE SPECIMEN Ordering Facility: [facility] Address: [address] [place], [place] [address]Performed By: #### [id number] #### [facility] CLIA [id number] [address] [place] [address] [place] AMERICASuccinate/Creatinine (U) [Molar ratio]0.7 umol/mmolCrNormal0.3-27.4[facility] HospitalComment on above: Order Comment: Specimen Type: URINE SPECIMEN Ordering Facility: [facility] Address: [address] [place], [place] [address]Performed By: #### [id number] #### [facility] CLIA [id number] [address] [place] [address] [place] AMERICASuccinylacetone/Creatinine (U) [Molar ratio]<0.4Normal<0.4[facility] HospitalComment on above:Order Comment: Specimen Type: URINE SPECIMEN Ordering Facility: [facility] Address: [address] [place], [place] [address]Performed By: #### [id number] #### [facility] CLIA [id number] [address] [place], [place] [address]UOA CONSULTATIONSaint Louis University HospitalComment on above:Order Comment: Specimen Type: URINE SPECIMEN Ordering Facility: [facility] Address: [address] [place], [place] [address]Result Comment: This urine organic acid analysis shows [...] and its performance characteristics determined by the [facility]etabolism [facility]. It has not been cleared or approved by the US Food and Drug Administration. The FDA had determined that such clearance or approval is not necessary.Performed By: #### [id number] #### [facility] CLIA [id number] [address] [place], [place] [address]UO REVIEWReviewed by Forrest Gomez MD, Ph.D ([id number])[facility] on above:Order Comment: Specimen Type: URINE SPECIMEN Ordering Facility: [facility] Address: [address] [place], [place] [address]Performed By: #### [id number] #### [facility] CLIA [id number] [address] [place] [address] STATES [facility] MEDICAL CENTERUracil/Creatinine (U) [Molar ratio]<0.2Yikzef9.0-5.1SSaint [facility]Comb[facility] on above:Order Comment: Specimen Type: URINE SPECIMEN Ordering Facility: [facility] Address: [address] [place], [place] [address]Performed By: #### [id number] #### [facility] CLIA [id number] [address] [place] [address] [place] AMERICAPYRUVATE+LACTATE BLon 64-02-7477Gpzxsly [Moles/Vol]2.1 mmol/LNormal0.5-2.2[facility] HospitalComment on above:Order Comment: Specimen Type: BLOOD SPECIMEN Ordering Facility: [facility] Address: [address] [place] [address] Comment: This test was developed, and its performance characteristics determined by the [facility] Department of Pathology and Laboratory Medicine. It has not been cleared or approved by[facility] FDA. The [facility] Department of Pathology and Laboratory Medicine is regulated under CLIA as qualified to perform high- complexity testing. This test is used for clinical purposes. It should not be regarded as investigational or for research.Performed By: #### [id number] #### [facility] CLIA [id number] [address] [place] [address] [place] AMERICAPyruvate (Bld) [Moles/Vol] 0.05 mmol/LNormal0.03-0.10[facility] HospitalComment on above:Order Comment: Specimen Type: BLOOD SPECIMEN Ordering Facility: [facility] Address: [address] [place] [address] Comment: This test was developed, and its performance characteristics determined by the [facility] Department of Pathology and Laboratory Medicine. It has not been cleared or approved by[facility] FDA. The [facility] Department of Pathology and Laboratory Medicine is regulated under CLIA as qualified to perform high- complexity testing. This test is used for clinical purposes. It should not be regarded as investigational or for research.Performed By: #### LACPYR #### [facility] CLIA [id number] [address] [place] [address] [place] AMERICAVOLTAGE GATED CA IGGon 04-10-2025P/Q-TYPE CALCIUM CHANNEL ANTIBODY0.0 pmol/LNormal0.0-24.5[facility] HospitalComment on above:Order Comment: Specimen Type: BLOOD SPECIMEN Ordering Facility: [facility] Address: [address] [place] [address]Fivvsf Comment: INTERPRETIVE INFORMATION: P/Q-Type Calcium Channel Antibody 0.0 to 24.5 pmol/L ............. Negative 24.6 to 45.6 pmol/L ............ Indeterminate 45.7 pmol/L or greater.......... Positive This test was developed and its performance characteristics determined by [facility]. It has not been cleared or approved by the US Food and Drug Administration. This test was performed in a CLIA certified laboratory and is intended for clinical purposes. Performed By: [facility] [address] [place] [address] Signwriter: Warren Simmons MD, PhD CLIA Number: [id number] By: #### LACPYR #### [facility] CLIA [id number] [address] [place] [address] [place] AMERICAVOLTAGE-GATED POTASSIUM SZYMANSKI ABon 18-16-1529WUMBUJA-GATED POTASSIUM CHANNEL AB, SER0 pmol/LNormal0-31 [facility] HospitalComment on above:Order Comment: Specimen Type: BLOOD SPECIMEN Ordering Facility: [facility] Address: [address] [place], [place] [address]Result Comment: INTERPRETIVE INFORMATION: Voltage-Gated Potassium Channel (VGKC) [...] developed and its performance characteristics determined by [facility]. It has not been cleared or approved by the US Food and Drug Administration. This test was performed in a CLIA certified laboratory and is intended for clinical purposes. Performed By: [facility] [address] [place] [address] Signwriter: Warren Simmons MD, PhD CLIA Number: [id number] By: #### VGKCAB #### [facility] CLIA [id number] [address] [place], [place] [address]YWSWvm [id number] (GASTSP) MORE KINGSLEY JR. ([id number]) 1965 M Date Time Provider Department 04/05/25 [...] 04/05/2025 (None) Encounter Status:Closed by ORLINDarynSHENA on 04/05/25[facility] [id number] Vaughn 03/28/2025 4:19 PM Debridement Performed by: SCOTT Vaughn Authorized by: SCOTT Vaughn Consent: Consent obtained: Verbal and written Consent given by: Patient Risks discussed: Yes Debridement Details: Performed by: BURNER HAND Type: Sharp Level: Subcutaneous Tissue, Devitalized tissue and other material debrided: Callus and subcutaneous tissue Anesthesia administration: topical Anesthesia: EMLA Total Surface Area Debrided cm^2: 10.37 Specimen Taken: None Instrument: Curette Amount of bleeding: Medium Bleeding Control: Pressure Response to treatment: Procedure was tolerated well Tissue Applied?: NoMANUALLY TRANSCRIBED RESULTSSouthern Ohio Medical CenterCBC AND AUTO DIFFon 08-20-4224HIBBEGGL BASOPHIL0.2 X10E9/LNormal0.0-0.2ProMedPark SanitariumComment on above:Performed By: #### CBCA, CMP #### [facility] ([id number]) [address] [place] [address]TUAPJYEW NEUTROPHIL6.0 X10E9/LNormal1.5-6.6[facility] HospitalComment on above:Performed By: #### CBCA, CMP #### [facility] ([id number]) [address] [place] [address] 175[address]Wdxombitm/100 WBC (Bld)2.4 %NormalProWoman'S Hospital Of Texas Comment on above:Performed By: #### CBCA, CMP #### [facility] ([id number]) [address] [place] [address] 268[address]Eorumteilmr (Bld) [#/Vol]0.3 10*3/uLNormal0.0-0.4[facility] HospitalComment on above:Performed By: #### CBCA, CMP #### [facility] ([id number]) [address] [place] [address] 31590Stetnhohnfy/100 WBC (Bld)3.4 %NormalUC West [facility] Hospital Comment on above:Performed By: #### CBCA, CMP #### [facility] ([id number]) [address] [place] [address] 16852Uludtzfgevg distribution width (RBC) [Ratio]15.0 %Normal 11.5-15.0[facility] HospitalComment on above:Performed By: #### CBCA, CMP #### [facility] ([id number]) [address] [place] [address] 19672Ihmtpwlqlu (Bld) [Volume fraction]40.0 %Pnwzuz88-50UkuBmptxvWoman'S Hospital Of TexasComment on above:Performed By: #### CBCA, CMP #### [facility] ([id number]) [address] [place] [address] 70[address]Gzkkmjywme (Bld) [Mass/Vol]13.7 g/gLPlxhcb89.0-17.0[facility] HospitalComment on above:Performed By: #### CBCA, CMP #### [facility] ([id number]) [address] [place] [address] 610[address]Jmhqunxeenp (Bld) [#/Vol]2.1 10*3/uLNormal1.0-3.5PPomerene HospitalComment on above:Performed By: #### CBCA, CMP #### [facility] ([id number]) [address] [place] [address] 96115Mnpzxthkmqu/100 WBC (Bld)21.1 %NormalUC [facility] Hospital Comment on above:Performed By: #### CBCA, CMP #### [facility] ([id number]) [address] [place] [address] 33680LVF (RBC) [Entitic mass]28.8 bvByuvmd50-44SmgMlubwqUC West [facility] HospitalComment on above:Performed By: #### CBCA, CMP #### [facility] ([id number]) [address] [place] [address] 45592SWVX (RBC) [Mass/Vol]34.3 g/zYWrulhg48-00TqiAtsnefUC West Chester HospitalComment on above:Performed By: #### CBCA, CMP #### [facility] ([id number]) [address] [place] [address] 64654YAS (RBC) [Entitic vol]84 lTIieitq63-820NqzYsrmruUC West Chester HospitalComment on above:Performed By: #### CBCA, CMP #### [facility] ([id number]) [address] [place] [address] 48685Fhwhmpftu (Bld) [#/Vol]1.4 10*3/uLHigh0-0.9[facility] HospitalComment on above:Performed By: #### CBCA, CMP #### [facility] ([id number]) [address] [place] [address] 49089Ferkltsfe/100 WBC (Bld)13.4 %[facility] Comment on above:Performed By: #### CBCA, CMP #### [facility] ([id number]) [address] [place] [address] 38985Jblmnfqivny/100 WBC (Bld)59.7 %[facility] Comment on above:Performed By: #### CBCA, CMP #### [facility] ([id number]) [address] [place] [address] 89964Ouyljenw mean volume (Bld) [Entitic vol]8.1 fLNormal7-12 [facility] HospitalComment on above:Performed By: #### CBCA, CMP #### [facility] ([id number]) [address] [place] [address] 09237Ccneilbef (Bld) [#/Vol]334 10*3/sUDpftje029-663GdhRupqoe Fremont HospitalComment on above:Performed By: #### ARELY, CMP #### [facility] ([id number]) [address] [place] [address] 64703SBR COUNT4.76 X10E12/LNormal4.10-5.70[facility] Comment on above:Performed By: #### ARELY, CMP #### [facility] ([id number]) [address] [place] [address] 92436HUD (Bld) [#/Vol]10.1 10*3/uLNormal4.0-11.0ProWoman'S Hospital Of TexasComment on above:Performed By: #### ARELY, CMP #### [facility] ([id number]) [address] [place] [address] 70957RIIZSVMTYTGES METABOLIC PANELon 26-17-9025Jwhvpcf [Mass/Vol]2.9 g/dLLow3.2-5.3PPomerene HospitalComment on above:Performed By: #### ARELY, CMP #### [facility] ([id number]) [address] [place] [address], [place] [address]HUN [Catalytic activity/Vol]95 U/HKrflwr36-343SdwIfetbiWoman'S Hospital Of TexasComment on above:Performed By: #### ARELY, CMP #### [facility] ([id number]) [address] [place] [address], [place] [address]FTV [Catalytic activity/Vol]15 U/LNormal0-40ProWoman'S Hospital Of TexasComment on above:Performed By: #### CBCRachana, CMP #### [facility] ([id number]) [address] [place] [address]34[address]Rghbn gap [Moles/Vol]7 mmol/LNormal5-15ProWoman'S Hospital Of TexasComment on above:Performed By: #### ARELY, CMP #### [facility] ([id number]) [address] [place] [address], [place] [address]RXQ [Catalytic activity/Vol]18 U/LNormal0-41[facility] HospitalComment on above:Performed By: #### CBCRachana, CMP #### [facility] ([id number]) [address] [place] [address], [place] [address]Obqdtwfdc [Mass/Vol]0.9 mg/dLNormal0.3-1.2PPomerene HospitalComment on above:Performed By: #### ARELY, CMP #### [facility] ([id number]) [address] [place] [address], [place] [address]Mrdejxf [Mass/Vol]8.3 mg/dLLow8.5-10.5PPomerene HospitalComment on above:Performed By: #### ARELY, CMP #### [facility] ([id number]) [address] [place] [address], [place] [address]Rkddiznl [Moles/Vol]102 mmol/IBzhtrb62-701KyzXfsekiWoman'S Hospital Of TexasComment on above:Performed By: #### ARELY, CMP #### [facility] ([id number]) [address] [place] [address], [place] [address]EC8 [Moles/Vol]23 mmol/MKgwjho62-08EsjNleelqPomerene Hospital Comment on above:Performed By: #### CBCRachana, CMP #### [facility] ([id number]) [address] [place] [address], [place] [address]Yzcodbxasz [Mass/Vol]1.20 mg/dLNormal0.70-1.20ProWoman'S Hospital Of TexasComment on above:Result Comment: METHOD TRACEABLE TO IDMS STANDARD Performed By: #### CBCRachana, CMP #### [facility] ([id number]) [address] [place] [address], [place] [address]GNR/1.73 sq M.predicted among non-blacks MDRD (S/P/Bld) [Vol rate/Area]70 mL/min/{1.73_m2}Normal>59ProWoman'S Hospital Of TexasComment on above:Result Comment: Reported eGFR is based on the CKD-EPI 1 equation that does not use a race coefficient.Performed By: #### ARELY, CMP #### [facility] ([id number]) [address] [place] [address]Jpzjjgn [Mass/Vol]213 mg/pDShtd77-74GevMaumpdUC [facility] Comment on above:Performed By: #### ARELY, CMP #### [facility] ([id number]) [address] [place] [address] 429[address]Yziswxbwz [Moles/Vol]3.6 mmol/LNormal3.5-5.0ProWoman'S Hospital Of TexasComment on above:Performed By: #### ARELY, CMP #### [facility] ([id number]) [address] [place] [address] 939[address]Sfnhzvg [Mass/Vol]8.3 g/dLHigh6.0-8.0[facility] Comment on above:Performed By: #### ARELY, CMP #### [facility] ([id number]) [address] [place] [address] 52[address]Kthcso [Moles/Vol]132 mmol/YIqg473-195SsbJmycnzWoman'S Hospital Of TexasComment on above:Performed By: #### ARELY, CMP #### [facility] ([id number]) [address] [place] [address] 30148Tqph nitrogen [Mass/Vol]18 mg/dLNormal5-23ProWoman'S Hospital Of TexasComment on above:Performed By: #### CBCA, CMP #### [facility] ([id number]) [address] [place] [address]Eukeeuk (P damon) [Moles/Vol]on 16-28-3033AXSVFPN W/REFLEX1.3 mmol/LNormal0.4-2.0ProWoman'S Hospital Of TexasComment on above:Result Comment: Result did not trigger repeat Lactate, re-order if needed.Performed By: #### 72234-7 #### [facility] ([id number]) [address] [place] [address], FIRST FLOOR [place], [place] [address]OGSZEOBJAYS WOUND CULTUREon 46-40-9454Xurdcdjl identified Aer cx Nom (Wound)GRAM STAIN 0 [...] DAPTOMYCIN S 0.25 F DOXYCYCLINE S <=0.5 FSusceptibleProWoman'S Hospital Of TexasComment on above: Performed By: #### 632-0 #### [facility] ([id number]) [address] [place], [place] [address]BW FOOT RT MIN 3 VWSon 81-65-3762MA FOOT RT MIN 3 VWSXR FOOT RT [...] Du Hawthorne MD on 03/04/2025 10:59 AMNormalProMedica Kaiser San Leandro Medical CenterCNPNon 87-00-3644YFQZXtixnyzfe (GASTMN) MORE KINGSLEY JR. ([id number]) 1965 M Date Time Provider Department 11/21/24 DAVIDA PRICE [facility] During your visit today, we recorded the following information about you: Leonard Cadet 11/21/2024 3:[address] Yoon's office phones requesting office note from October 24 When completed, please fax to [phone] Davida Hawkins MD 11/24/2024 9:41 AM Signed [...] office. Forwarding to your office for rescheduling. 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 ([id number]) 1965 M Date Time Provider Department 06/22/24 [...] 07/05/2024 8:20 AM Signed Received fax from [facility] asking if he has been scheduled. [...] 10:57 AM Signed Dexcom or empties trial. Al surgery and behavioral medicine. EGG is in. Art Figueredo DO 07/12/2024 10:57 AM Signed Addended by: ART FIGUEREDO on: 07/12/2024 10:57 AM Modules accepted: Layla Silva RN 07/12/2024 12:16 PM Signed Screens positive for EMPTIES medically however, unsure if will be complaint with follow ups evaluate at [facility] ISAIAS Aparicio Rose M 07/13/2024 11:43 AM Signed Patient is scheduled at [facility] with GP Team Allergies As of Date: 06/22/2024 (Not on File) Date Reviewed: Never Reviewed Reason for Visit: Appointment [186] Primary Visit Diagnosis:Gastroparesis [K31.84] Order(s):EGG (ELECTROGASTROGRAPHY) [99533FXL] Order #: [id number] Problem List As Of Date: 06/22/2024 (None) Encounter Status:Closed by DEONNA PATEL on 06/22/24NoEast Ohio Regional HospitalGlucose Glucometer (dC) [Mass/Vol]Ordered By: Tracy Yoon on 66-02-8172Kdhkdgz [Mass/Vol]234 mg/dLMercy Health Urbana HospitalComment on above:Random Glucose Reference Range is dependent on time and content of last meal. Glucose of more than 200 mg/dL in a nonstressed, ambulatory subject supports the diagnosis of Diabetes Mellitus.No Panel InformationOrdered By: Tracy Yoon on 14-29-8533Ktkmtiv Glucose CommentGlu2: cleaned [facility] Medical CenterA1C HEMOGLOBINon 50-84-4962GsO1v (Bld) [Mass fraction]10.4 %[employer] Other Glucose - FINGER STICKon 08-14-8001Mxxtprc [Mass/Vol] 319 mg/dLNort [employer] Other HbA1c (Bld) [Mass fraction]on 99-35-2288M1M HEMOGLOBIN [employer] Other XR CHEST 1 Von 67-35-7281RF CHEST 1 VONE-VIEW CHEST RADIOGRAPH, 03/18/2023 8:32 PM EDT COMPARISON: Chest, 01/20/2021. CLINICAL HISTORY: Dizziness near syncope. Findings and impression: 1. Minimal linear atelectasis or scarring in the lingula. Lungs otherwise clear. 2. Borderline heart size. 3. No acute osseous abnormality. Electronically authenticated by: Mahad DIXON Date: 2023-03-18 22:26NoTriHealth McCullough-Hyde Memorial HospitalBNPon 35-25-4221Kcbyabwljxb peptide B (Bld) [Mass/Vol]174.0 pg/mLNormal<=900.0The [facility] HospitalComment on above:Performed By: #### HSTROPN, CMP, BNP #### [facility] [address] [place] [address] Dr. Michael Allen AUTO DIFFon 61-34-8677YCRU #0.1 103/ulNormal0.0-0.1The [facility] HospitalComment on above:Performed By: #### CBC #### [facility] [address] [address] [address] Michael GonzalesBasophils/100 WBC (Bld)1.4 %Normal0.2-2.0The [facility] Comment on above:Performed By: #### CBC #### [facility] [address] [place] [address] Dr. Michael Upton #0.2 103/ulNormal0.0-0.7The [facility] HospitalComment on above: Performed By: #### CBC #### [facility] [address] [address] [address] Michael Adamsosinophils/100 WBC (Bld)2.3 %Normal0.9-7.0The [facility] Comment on above:Performed By: #### CBC #### [facility] [address] [address] [address] Michael Adamsrythrocyte distribution width (RBC) [Ratio]13.9 %Kgfkgl08.0-15.0 The [facility] HospitalComment on above:Performed By: #### CBC #### [facility] [address] [place] [address] Dr. Michael GonzalesHematocrit (Bld) [Volume fraction]43.6 %Zpcrdr17.0-54.0The [facility] HospitalComment on above:Performed By: #### CBC #### [facility] [address] [place] [address] Dr. Michael GonzalesHemoglobin (Bld) [Mass/Vol]14.6 g/cGXrwplx77.0-18.0The [facility] HospitalComment on above:Performed By: #### CBC #### [facility] [address] [place] [address] Dr. Michael Olson #0.05 10e3/ulCritically high0.00-0.03The [facility] Comment on above:Performed By: #### CBC #### [facility] [address] [place] [address] Dr. Michael Olson %0.5 %Normal0.0-0.5The [facility] HospitalComment on above: Performed By: #### CBC #### [facility] [address] [place] [address] Dr. Michael GuzmánH #2.4 103/ulNormal1.2-3.8The [facility] HospitalComment on above:Performed By: #### CBC #### [facility] [address] [place] [address] Dr. Michael Bergeronmphocytes/100 WBC (Bld)26.3 %Xnvfnq05.5-60.0The [facility] HospitalComment on above:Performed By: #### CBC #### [facility] [address] [address] [address] Michael Linares DIFF REQNONormalThe [facility] HospitalComment on above: Performed By: #### CBC #### [facility] [address] [address] [address] Michael Frank (RBC) [Entitic mass]28.7 cdAwbqmm04.9-34.0The [facility] HospitalComment on above:Performed By: #### CBC #### [facility] [address] [address] [address] Michael Frank (RBC) [Mass/Vol]33.5 g/yVUfotlc28.9-35.2The [facility] HospitalComment on above:Performed By: #### CBC #### [facility] Laboratory [address] [address] [address] Michael Frank (RBC) [Entitic vol]85.7 uUUuozjn22.0-94.0The [facility] HospitalComment on above:Performed By: #### CBC #### [facility] [address] [address] [address] Michael Masters #1.3 103/ulCritically high0.3-0.8The [facility] Comment on above:Performed By: #### CBC #### [facility] [address] [address] [address] Michael Princeocytes/100 WBC (Bld)13.6 %Critically high1.7-12.0The [facility] HospitalComment on above:Performed By: #### CBC #### [facility] [address] [address] [address] Michael Edmond #5.2 103/ulNormal1.4-6.5The [facility] HospitalComment on above:Performed By: #### CBC #### [facility] [address] [address] [address] Michael Hermosilloutrophils/100 WBC (Bld)55.9 %Pjwjfm82.0-75.0The [facility] HospitalComment on above:Performed By: #### CBC #### [facility] [address] [place] [address] Dr. Michael GonzalesPlatelet mean volume (Bld) [Entitic vol]10.9 fLNormal9.5-13.5The [facility] HospitalComment on above:Performed By: #### CBC #### [facility] [address] [place] [address] Dr. Michael GonzalesPLT219 103/ovXaqwvu420-849Uex [facility] HospitalComment on above: Performed By: #### CBC #### [facility] [address] [place] [address] Dr. Michael GonzalesRBC5.09 106/ulNormal4.70-6.10The [facility] HospitalComment on above:Performed By: #### CBC #### [facility] [address] [place] [address] Dr. Michael GonzalesWBC9.2 103/ulNormal4.0-11.0The [facility] HospitalComment on above: Performed By: #### CBC #### [facility] [address] [place] [address] Dr. Michael GonzalesMAGNESIUMon 29-79-6465Teoofhdii [Mass/Vol]2.0 mg/dLNormal1.8-2.4 The [facility]Combrighton [facility] on above:Performed By: #### MG #### [facility] [address] [place] [address] Dr. Michael GonzalesPROF 14(COMP METB)on 44-65-2704Hsoogxv [Mass/Vol]3.3 g/dL Critically low3.4-5.0The [facility] HospitalComment on above:Performed By: #### HSTROPN, CMP, BNP #### [facility] [address] [place] [address] Dr. Michael GonzalesAlbumin/Globulin [Mass ratio]0.7 {ratio}NormalThe [facility] HospitalComment on above:Performed By: #### HSTROPN, CMP, BNP #### [facility] [address] [address] [address] Michael Ibanez [Catalytic activity/Vol]118 U/LCritically fydm84-924Orb [facility] HospitalComment on above:Performed By: #### HSTROPN, CMP, BNP #### [facility] [address] [address] [address] Michael Rhoades [Catalytic activity/Vol]19 U/FCdbjem55-70Slx [facility] HospitalComment on above:Performed By: #### HSTROPN, CMP, BNP #### [facility] [address] [address] [address] Michael Carbajal gap [Moles/Vol]13.3 mmol/LNormalThe [facility] Comment on above:Performed By: #### HSTROPN, CMP, BNP #### [facility] [address] [place] [address] Dr. Michael Colon [Catalytic activity/Vol]24 U/OZhxzix64-88Ntw [facility] HospitalComment on above:Performed By: #### HSTROPN, CMP, BNP #### [facility] [address] [address] [address] Michael GonzalesBilirubin [Mass/Vol]1.0 mg/dLNormal0.2-1.0The [facility] Comment on above:Performed By: #### HSTROPN, CMP, BNP #### [facility] [address] [address] [address] Michael GonzalesCalcium [Mass/Vol]8.7 mg/dLNormal8.5-10.1The [facility] Comment on above:Performed By: #### HSTROPN, CMP, BNP #### [facility] [address] [address] [address] Michael GonzalesChloride [Moles/Vol]101 mmol/WCnsobo28-702Tyu [facility] Comment on above:Performed By: #### HSTROPN, CMP, BNP #### [facility] [address] [address] [address] Michael GonzalesCO2 [Moles/Vol]22.0 mmol/ZMerhem20.0-32.0The [facility] Comment on above:Performed By: #### HSTROPN, CMP, BNP #### [facility] [address] [place] [address] Dr. Michael GonzalesCreatinine [Mass/Vol]2.08 mg/dLCritically high0.70-1.30The [facility] HospitalComment on above:Performed By: #### HSTROPN, CMP, BNP #### [facility] [address] [place] [address] Dr. Rodriguez ChangEGFR-AF HEOVFFQK50 mL/min/1.15v3Euxcqtlouu low>=60The [facility] HospitalComment on above:Performed By: #### HSTROPN, CMP, BNP #### [facility] [address] [place] [address] Dr. Rodriguez ChangEGFR-NON AF IMZIAMQH76 mL/min/1.65t5Nxvzdibrli low>=60The [facility] HospitalComment on above:Performed By: #### HSTROPN, CMP, BNP #### [facility] [address] [place] [address] Dr. Michael GonzalesGlobulin (S) [Mass/Vol]4.6 g/dLNormalThe [facility] HospitalComment on above:Performed By: #### HSTROPN, CMP, BNP #### [facility] [address] [place] [address] Dr. Michael GonzalesGlucose [Mass/Vol]319 mg/dLCritically isdu65-777Kek [facility] Hospitalment on above:Performed By: #### HSTROPN, CMP, BNP #### [facility] [address] [place] [address] Dr. Michael GonzalesPotassium [Moles/Vol]4.3 mmol/LNormal3.5-5.1The [facility] Comment on above:Performed By: #### HSTROPN, CMP, BNP #### [facility] [address] [place] [address] Dr. Michael GonzalesProtein [Mass/Vol]7.9 g/dLNormal6.4-8.2The [facility] Comment on above:Performed By: #### HSTROPN, CMP, BNP #### [facility] [address] [place] [address] Dr. Michael GonzalesSodium [Moles/Vol]132 mmol/LCritically qpw097-589Gps [facility] HospitalComment on above:Performed By: #### HSTROPN, CMP, BNP #### [facility] [address] [place] [address] Dr. Michael Hernandez nitrogen [Mass/Vol]33.0 mg/dLCritically high7.0-18.0The [facility] HospitalComment on above:Performed By: #### HSTROPN, CMP, BNP #### [facility] [address] [place] [address] Dr. Michael Hernandez nitrogen/Creatinine [Mass ratio]15.9 mg/mgNoTriHealth McCullough-Hyde Memorial HospitalComment on above:Performed By: #### HSTROPN, CMP, BNP #### [facility] [address] [place] [address] Dr. Michael Galicia 41-38-9223JTH Coag (PPP) [Relative time]0.93 {INR} NormalOhiohealth Mansfield HospitalComment on above:Performed By: #### PTT, PT #### [facility] [address] [place] [address] Dr. Michael Robb GUIDELINESSEE BELOWOhioHealth Mansfield HospitalComment on above:Result Comment: DESIRED INR: 2.0 - 3.0 CONDITIONS NOT LISTED BELOW 2.5 - 3.5 FOR PROSTHETIC HEART VALVE REPLACEMENT 2.5 - 3.5 RECURRENT THROMBOSIS Performed By: #### PTT, PT #### [facility] [address] [place] [address] Dr. Michael GonzalesPT Coag (PPP) [Time]9.9 sNormal9.0-11.6The [facility] Comment on above:Performed By: #### PTT, PT #### [facility] [address] [place] [address] Dr. Michael Baca 01-54-2152dJAR Coag (Bld) [Time]26.5 yCqoxps34.3-36.2The [facility] HospitalComment on above:Performed By: #### PTT, PT #### [facility] [address] [place], [place] [address] Dr. Michael Florez, HIGH SENSITIVITYon 73-84-2595MHARJU5.3 pg/mLNormal 4.0-76.1The [facility] HospitalComment on above:Result Comment: CUT-OFF POINTS HAVE BEEN ESTABLISHED BASED ON THE FOURTH UNIVERSAL DEFINITIONS OF MYOCARDIAL INFARCTION. THE UPPER REFERENCE LIMIT (URL) OF TROPONIN, DEFINED THE 99TH PERCENTILE OF cTnI DISTRIBUTION IN A REFERENCE POPULATION, HAS BEEN CONFIRMED THE DECISION THRESHOLD FOR UT DIAGNOSIS.Performed By: #### HSTROPN, CMP, BNP #### [facility] [address] [place], [place] [address] Dr. Michael GonzalesXR FOOT LEFT 3+ VIEWS (STANDARD)on 27-07-2879RHKDXLTM/ Severe destructive changes at the midfoot and [...] ID: [id number] FOOT LEFT 3+ VIEWS (STANDARD)on 02-90-8962NV FOOT LEFT 3+ VIEWS (STANDARD)EXAMINATION: XR FOOT [...] ID: [id number] Dictated by: RAMONE HAWTHORNE on [facility] Jan 25, 2021 1:58:20 PM EST Transcribed by: RAMONE HAWTHORNE on [facility] Jan 25, 2021 1:58:20 PM EST Finalized by: RAMONE HAWTHORNE on [facility] Jan 25, 2021 1:58:20 PM [facility] on above:Order Comment: Injury/Trauma or Illness?:Illness/Other How long have you had these symptoms (acute/chronic)?:Acute Reason for exam?:non healing wound on top of foot History of cancer?: Surgeries, chemotherapy, or radiation?: Type of Exam?:Initial Additional signs and symptoms?:painOtheron 85-28-5108Yd acute osseous abnormality. Workstation ID: [id number]: XR [...] Soft tissues are diffusely edematous with skin thickening.[facility] 01/09/2021 4:13 PM EST EXAMINATION: [...] ID: [id number] ANKLE LEFT 3+ VIEWS (STANDARD)on 90-65-6958WI ANKLE LEFT 3+ VIEWS (STANDARD)EXAMINATION: XR ANKLE [...] LEGGETT on WedJan 09, 2021 4:10:37 PM ESTBrecksville Va / Crille HospitalComment on above:Order Comment: Injury/Trauma or Illness?:Illness/Other How long have you had these symptoms (acute/chronic)?:Acute Reason for exam?:charcot joint of ankle History of cancer?: Surgeries, chemotherapy, or radiation?: Type of Exam?:Initial Additional signs and symptoms?:XR FOOT LEFT 3+ VIEWS (STANDARD)on 01-00-2593FZ FOOT LEFT 3+ VIEWS (STANDARD)EXAMINATION: XR ANKLE [...] on Barbara Jan 09, 2021 4:10:37 PM [facility] SystemComment on above:Order Comment: Injury/Trauma or Illness?:Illness/Other How long have you had these symptoms (acute/chronic)?:Acute Reason for exam?:open wound History of cancer?: Surgeries, chemotherapy, or radiation?: Type of Exam?:Initial Additional signs and symptoms?:Biopsyon 27-68-6308Mdtqnadia Cherry DPM 12/27/2020 11:33 PM Biopsy Timeout: Verbal Consent obtained?: Yes Consent given by:: Patient Procedure: Procedure Performed for: Bone Biopsy - Left foot Performed by: Physician Additional Procedure details:: A bone biopsy of the midfoot was obtained using a rongeur and sent to microbiology for culture and sensitivity Response to Treatment:: Procedure was tolerated wellOhioHealthBasic Metabolic Panelon 27-70-4830Tifej gap [Moles/Vol]9 mmol/LLow10 - 20 mmol/L OhioHealthCalcium [Mass/Vol]8.9 mg/dL8.4 - 10.2 mg/dLOhioHealthChloride [Moles/Vol]104 mmol/L98 - 108 mmol/LOhioHealthCreatinine [Mass/Vol]1.01 mg/dL 0.50 - 1.30OhioHealthGFR/1.73 sq M predicted among non-blacks MDRD (S/P/Bld) [Vol rate/Area]The eGFR should be used for monitoring renal function only and not for medication dosing.OhioHealthGFR/1.73 sq M.predicted CKD-EPI (S/P/Bld) [Vol rate/Area]84>=60 mL/min/1.73 x0QolfWywszgWtakhma [Mass/Vol]156 mg/wINoah87 - 99 mg/dLOhioHealthHCO3 [Moles/Vol]27 mmol/L21 - 32 mmol/LOhioHealth Interpretation and review of laboratory resultsAbnormalOhioHealthPotassium [Moles/Vol]3.8 mmol/L3.5 - 5.1 mmol/LOhioHealthSodium [Moles/Vol]136 mmol/L135 - 145 mmol/LOhioHealthUrea nitrogen [Mass/Vol]15 mg/dL8 - 25 mg/dLOhioHealthUrea nitrogen/Creatinine [Mass ratio]14.9 mg/mgOhioHealthCBCon 89-05-1130Mypikwrjlsk distribution width (RBC) [Entitic vol]15.4 %High11.6 - 14.8 %[facility] Hematocrit (Bld) [Volume fraction]34.1 %Low41 - 53 %OhioC[facility] Fairview HospitalHemoglobin (Bld) [Mass/Vol]10.3 g/dLLow13.5 - 17.5 g/dLOhioHealthInterpretation and review of laboratory resultsAbnormalOhioHealthMCH (RBC) [Entitic mass]25.5 pgLow26 - 34 pg [facility] HospitalMCHC (RBC) [Mass/Vol]30.2 g/dLLow31 - 37 g/dLOhioHealthMCV (RBC) [Entitic vol]84.4 fL80 - 100 fLOhioHealthNucleated RBC (Bld) [#/Vol]0.00 10*3/uL OhioHealthNucleated RBC/100 WBC (Bld) [Ratio]0.0 %OhioCleveland [facility] Fairview HospitalPlatelet mean volume (Bld) [Entitic vol]10.0 fL9.4 - 12.4 fLOhioHealthPlatelets (Bld) [#/Vol]494 10*3/uLHighOhioHealthRBC (Bld) [#/Vol]4.04 10*6/uLLowOhioHealthWBC (Bld) [#/Vol] 6.26 10*3/uLOhioHealthMagnesium Levelon 63-96-9506Ggrkcwnlhotqgq and review of laboratory resultsNormalOhioHealthMagnesium [Mass/Vol]1.8 mg/dL1.6 - 2.4 mg/dL [facility] HospitalPOC Glucoseon 28-98-7001Fdtzsba [Mass/Vol]157 mg/aMQqsv97 - 99 mg/dL OhioHealthInterpretation and review of laboratory resultsAbnormalOhioHealth Glucose [Mass/Vol]132 mg/iZMcoq61 - 99 mg/dLOhioHealthInterpretation and review of laboratory resultsAbnormalOhioHealthGlucose [Mass/Vol]154 mg/fDXcut09 - 99 mg/dLOhioHealthInterpretation and review of laboratory resultsAbnormalOhioHealth Basic Metabolic Panelon 13-61-7373Wqjgb gap [Moles/Vol]8 mmol/LLow10 - 20 mmol/L OhioHealthCalcium [Mass/Vol]8.6 mg/dL8.4 - 10.2 mg/dLOhioHealthChloride [Moles/Vol]103 mmol/L98 - 108 mmol/LOhioHealthCreatinine [Mass/Vol]1.02 mg/dL 0.50 - 1.30OhioHealthGFR/1.73 sq M predicted among non-blacks MDRD (S/P/Bld) [Vol rate/Area]The eGFR should be used for monitoring renal function only and not for medication dosing.OhioHealthGFR/1.73 sq M.predicted CKD-EPI (S/P/Bld) [Vol rate/Area]83>=60 mL/min/1.73 l9AdxpLkqfgeBevzwon [Mass/Vol]151 mg/aLWlyt82 - 99 mg/dLOhioHealthHCO3 [Moles/Vol]28 mmol/L21 - 32 mmol/LOhioHealthPotassium [Moles/Vol]3.7 mmol/L3.5 - 5.1 mmol/LOhioHealthSodium [Moles/Vol]135 mmol/L135 - 145 mmol/LOhioHealthUrea nitrogen [Mass/Vol]13 mg/dL8 - 25 mg/dLOhioHealthUrea nitrogen/Creatinine [Mass ratio]12.7 mg/mgOhioHealthCBCon 35-22-1189Tdcuvgcfpcx distribution width (RBC) [Entitic vol]15.7 %High11.6 - 14.8 %[facility] Hematocrit (Bld) [Volume fraction]32.9 %Low41 - 53 %[facility] HospitalHemoglobin (Bld) [Mass/Vol]9.9 g/dLLow13.5 - 17.5 g/dLOhioHealthInterpretation and review of laboratory resultsAbnormalOhioHealthMCH (RBC) [Entitic mass]25.6 pgLow26 - 34 pg OhioHealthMCHC (RBC) [Mass/Vol]30.1 g/dLLow31 - 37 g/dLOhioHealthMCV (RBC) [Entitic vol]85.0 fL80 - 100 fLOhioHealthNucleated RBC (Bld) [#/Vol]0.00 10*3/uL OhioHealthNucleated RBC/100 WBC (Bld) [Ratio]0.0 %OhioHealthPlatelet mean volume (Bld) [Entitic vol]10.2 fL9.4 - 12.4 fLOhioHealthPlatelets (Bld) [#/Vol]512 10*3/uLHighOhioHealthRBC (Bld) [#/Vol]3.87 10*6/uLLowOhioHealthWBC (Bld) [#/Vol] 7.74 10*3/uLOhioHealthCRP, Inflammationon 02-90-1720POI [Mass/Vol]162.0 mg/LHigh <=10.0OhioHealthMagnesium Levelon 55-46-9163Asgzvnviolcfrh and review of laboratory resultsNormalOhioHealthMagnesium [Mass/Vol]1.7 mg/dL1.6 - 2.4 mg/dL OhioHealthOtheron 29-56-5306Ctvahiywuoewif and review of laboratory results AbnormalOhioHealthPOC Glucoseon 06-78-6156Tswtpgp [Mass/Vol]121 mg/iTUyzv57 - 99 mg/dLOhioHealthInterpretation and review of laboratory resultsAbnormal OhioHealthGlucose [Mass/Vol]117 mg/sNYjza95 - 99 mg/dLOhioHealthInterpretation and review of laboratory resultsAbnormalOhioHealthGlucose [Mass/Vol]147 mg/dL High65 - 99 mg/dLOhioHealthInterpretation and review of laboratory results AbnormalOhioHealthGlucose [Mass/Vol]177 mg/tGZzrt99 - 99 mg/dLOhioHealth Interpretation and review of laboratory resultsAbnormalOhioHealthSedimentation Rateon 20-15-8556WNH (Bld) [Velocity]116 mm/hHighOhioHealthInterpretation and review of laboratory resultsAbnormalOhioHealthTISSUE EXAMon 26-72-2316Yqcq ReportSurgical Pathology Report Case: [id number] Authorizing Provider: Leanne Cherry DPM Collected: 11/18/2020 12:59 PM Ordering Location: [facility] Received: 11/18/2020 01:28 PM Pathologist: Boy Cortez MD Specimen: Foot, Left, Left Foot Bone [facility] HospitalPathology report final diagnosis Narrative r9shbHYdIZUeiBZ0MjDqNQRow3rzb2BoyDPysSYiQStakTDagvEedb22qHR7bS29CW1wAYAbHpK6AOSh rwW3Bsa6SWJuNUTbsFUu M999g3oem3qslfYchJT4eFdwPAKbVDFzDWfiDYQhNtRcOOZXRdBkNGYod3CiC0A3GEDlVPkrh3ycVCJk WNifi6FgGNsMKBHZFZ3T DV9azZR1XVlJJQXHE5dXvQR9GwZ0uPN7LA25CDYdFGJixJUrIWenC012Lq8iDQWdhuLtpVPftSWcCLmd eh57TMM9RHfcHyxqjYQ2 ACocSlvspH4toPUMKFLBCyiPEttodfGtDT3IQWtYPvATME87Tk05BYTtPMFypZRmIItvN393NOXojWJQ v741s3fcfLMkGImfWgds gKSfpwX2JFoWJGYSWNsUNkQaCH3yYOvLGWOQGuM5Iy79YUDbUHXjcWRwANcfO761TKYmDHjkAQSxr6Di W4WuDslileXuNUdgBLhb yXByu447g7ojyFSyBDydPcghqUHhpxZ2CQeSGNRBQXlJCxDlXK1fTWjLE1UKYrE8CvNjMJJ3WUvoeCxa VyngmoMclMOiRfDdwT2p fHjpzM3sQgolfhUyOUSynalfxWtePHiqtO46NvMoFpCgSKD7hOFlq6P0EP4vrSWgbGFvtg0xjQDtBJFh ocAmzLRqGZLxV81ZNzGX HWFYH18VZTNEVQHMK5PDV6uWCNK6XgK8uCV0NqU3KfmbMZJIYDTUBReUMQ2MUFZEPNYRLD6FBvSlD8pE RENBUkRfTUVUQURBVEFf VnINSE6zQoc5IJFbyMSCo384C4bLSTLUSpOfKOWFPQGHYFVqVK8ZZCGBNRYCXH5XUJDHS58RQJMBNMDF S9SPH3dCMYBob7UEhZUz xFE5OlYvPES0IolvGM2uCDrKC5XNR6rTHOFqVHVSGBMWGWBtIQ0HSRlDBQ1DTQTpTXKGHKHYFVYcEaRQ MG1oNSyTZM7QXKZyAPXG LBMPTIGaWY4ALXIPYY7KLVYUEFSEU66POVCLHFZMJ6OKN4cAUWCRJNKNUlBEGmXMTR8VHBAYKXKQYE9F KkI9McuiGorwmqUcsixxpqi report gross observation Narrative n4lntSSkIOKijBP1HyHbOIUgy1don4QneHLbiLKnJCnziQPrwpWpgv65oNA2fD61BZ0iXWEfWmW5SUZe jiN6Paq9ESJlQJToeUUc X498m7otc8amzzBltKU4pRacUPOzBGRnGExbXFLmUtExBgLfKOq9LPKraG0lEm4ieLYgnJ1bNRZlx0cv gjL6OMWaIwCuLd5uiPag CLIfmJJXm32iJldkNWWuu3EtA8I2CWUtEBzvr9kxUSAgAAqdo7YaVBtIEXRKHE8VMX4wgQU7VUjPKNZZ H7mYyVR6OXMlzHI4XQ55 PRMqOFMlyZVyBBdfG739qVYoTExnDzlxtEP4KDoiOkzwfM4fzEYJNDOCCoaBVuqilhIyZC5DHOXFIJ1R uJZ5UPKtiYZ5GW09HLCw ZPVzuRCgJVsbC638FLEfKRcmJJMoQiHvWOWaLZboCH53ANLwCN7bSNXoafHgrREnx4WuqC3tLYHnQKC2 WYNqKcS7JNClUhAzeOek hy04OXX4j0zovVPmFXqjEzsotQBloqU7LKkUZIAMDFjLXhHpVY2hBHsPG3JCJVjZPjuzJJG8N9kzcLW2 a4khtWHyf9o1OPcgLHS4 nI90BAIgIDolk1yeYHQiUEhsg7EsEGyBSGFXTH8XTJ0zaSY3OUpQUEYNYMlrKEQ1C8mhmWF2q2rdiUKc m2l7YUuoIZK2mBmljACv baesmoSwBLKvJ8MamKl1pEWvVUAvveXyQBRnuULjBsybNFGeh73cCEERj0NwgVz5RGV6Ys9xbSTuAZWi dcMdRNBst6SieVAuHHOu SutmABCimMTbLSgrQRGdSK5byIXnCAdqb2OqVXK2KX9waqM4zN3aVSLtubKdxg4vPCWfeFylFRWms0Dw KShsGSqaz9PpuANpQJ8i SsG7OPgoYIIbooUvDIQ4WP65WSLTRN7qApwimBSsAM6MHHT1FBAbYUFrmlwrEIQfXEAiVhszHBNeafBF PHKMCMsCR1DlEJFOOJGP YIEeTeQBXY7rBwGuKSN6AT4lUqS3WTPczSI1PXGKVVFOPJjGK9FeYBXGNDMRNDCpDK3JMQtEPMBLTCKL Z90TGDLVSQELS7HTI2jF JOqNXAEDKMVPA44FZCCOJVJRY0BEDZEAAPARJBrDUKDMSg4FAWOMQTSUXJ9PVElUJjFdXBgKVM65jALl upAySXanXSQ8NYf4EyBl aJRkh8ETGLzlJOWpE5QeX8V3ZTauTXZ1Jjr5ShCjpUDBKHBRPRfFKCWRIz5KVPINSEGQJR2YDiGpS1AA QL1WPl4MLWVUMATSEP1G WVjWCmQcA6TCHF5TWp1TYPLLBJWGEK2BXtChSBTWW6DOChTUI8azXOVNXFCJEMEnZdNMZX1vHBAGYV5D TQYZDGPSJ26ATCXAVCLNP7CTCA2=CaukBzoegnIodrqxhzk report microscopic observation Narrative Other stain b7jczWOxJNHkxCYeEnRxGQEsRQAhh8lrNIEvpHKlKrSaQvRxHyJcObdaaXYbDUXlNyYnp3mws155fQZv t7gpRKElAmL6zPNlSELf iGDyX005YGDmIFltg3fro4GnCYOkiHQjs0M0EUJEvgggmNp0hVciH89bm4J2BpmjZ1vdVCYcGKNnR2Aj NI6jQBYzHdl3SIK8TUD0 RTNgNBVuV8OhQU3sAMKaxUEgXFg4o4zmlQqlIZXmHMQ2i8wyNUooudRsBQ2bmm5cgHu1a9zmnzAbMAVr NYKhzMTZPDVxU1UyoAcw Gw9zxEg7zUfwWjysIAS6Elo6QM8sbm87dam0mFcdZAZgbktbZuZ1OMoeIORjdbxpZWn6YScrIHSecPR0 GTXjqHDgV0FzKHXcEA7q tnh8GPF0ZAzkTQHaBdK2JSErqHNuRHTlrQknTBzja665SPY3IzZhLA0bK0Saj2A1zK8bxNQkQAIzeFDx HkBbSZBhae9ysPThVWrz e6RhRFP1dnH5gTIxcKCeEPOlEZ16Ebyta6WpGwwxUCR4LRAgbhRuh3Nsx9shRlSwhmDlJ4xiY8FyBZMo AHRrAPOoItQoikAuu8Rq d0BtnMDmqWu5r0xzBRXlTLQwiOdqd9meYSX4ZJVcF1K0yXAbe9ppQBjoBOKtqDP5joP7CHIzbYJqB9Gv xU5vQOXrDY2rovv8n2cy GIN0OEwxTMLaYwL0tmT2QWLcxRExZHAoqVhpHTyfe670ZAA0UoTrOPThx5IlM5RexSdtN85ohVnuP48w QEVgaDuauL7jbZuqhN9f AzAtKmEfVEaqjYoskMFjhrfrOSmovpEqGIdatbfxXJWtXGrhC0gxKxTmJUCcqPerVPjvk1NcYBMvPISi CiKsQLkabh0eZ29soQZtIZwhgUmlVLXwc25enTUiiXEgBa3zmJEwBzjpEIE5VahfLtftuvDYVML AEROBIC CULTUREon 51-53-2836Tivtbnuf identified Aer cx Nom (Wound)Rare growth Staphylococcus aureusAbnormalOhioHealthComment on above:This Staphylococcus aureus is Methicillin SUSCEPTIBLE by PBP2a testing. Beta-lactams like Cefazolin and Nafcillin are superior to Vancomycin for treating mSsa.Interpretation and review of laboratory resultsAbnormalOhioHealthMicroscopic observation Gram stain Nom (Wound)No Organisms SeenOhioHealthMicroscopic observation Gram stain Nom (Wound)Many WBCOhioHealthMicroscopic observation Gram stain Nom (Wound)No Epithelial Cells SeenOhioHealthBasic Metabolic Panelon 83-97-0032Izisz gap [Moles/Vol]12 mmol/L10 - 20 mmol/LOhioHealthCalcium [Mass/Vol]8.8 mg/dL8.4 - 10.2 mg/dLOhioHealthChloride [Moles/Vol]103 mmol/L98 - 108 mmol/LOhioHealth Creatinine [Mass/Vol]0.92 mg/dL0.50 - 1.30OhioHealthGFR/1.73 sq M predicted among non-blacks MDRD (S/P/Bld) [Vol rate/Area]The eGFR should be used for monitoring renal function only and not for medication dosing.[facility] HospitalGFR/1.73 sq M.predicted CKD-EPI (S/P/Bld) [Vol rate/Area]94>=60 mL/min/1.73 z6YpzqJrzbjh Glucose [Mass/Vol]132 mg/vWZrfu77 - 99 mg/dLOhioHealthHCO3 [Moles/Vol]25 mmol/L 21 - 32 mmol/LOhioHealthInterpretation and review of laboratory resultsAbnormal OhioHealthPotassium [Moles/Vol]3.8 mmol/L3.5 - 5.1 mmol/LOhioHealthSodium [Moles/Vol]136 mmol/L135 - 145 mmol/LOhioHealthUrea nitrogen [Mass/Vol]12 mg/dL8 - 25 mg/dLOhioHealthUrea nitrogen/Creatinine [Mass ratio]13.0 mg/mgOhioHealth CBCon 22-86-1220Yxvrtsotvjm distribution width (RBC) [Entitic vol]15.7 %High11.6 - 14.8 %[facility] HospitalHematocrit (Bld) [Volume fraction]33.2 %Low41 - 53 %[facility] Hemoglobin (Bld) [Mass/Vol]10.2 g/dLLow13.5 - 17.5 g/dLOhioHealthInterpretation and review of laboratory resultsAbnormalOhioHealthMCH (RBC) [Entitic mass]25.5 pgLow26 - 34 pgOhioHealthMCHC (RBC) [Mass/Vol]30.7 g/dLLow31 - 37 g/dLOhioHealth MCV (RBC) [Entitic vol]83.0 fL80 - 100 fLOhioHealthNucleated RBC (Bld) [#/Vol] 0.00 10*3/uLOhioHealthNucleated RBC/100 WBC (Bld) [Ratio]0.0 %OhioC[facility] HospitalPlatelet mean volume (Bld) [Entitic vol]9.9 fL9.4 - 12.4 fLOhioHealthPlatelets (Bld) [#/Vol]596 10*3/uLHighOhioHealthRBC (Bld) [#/Vol]4.00 10*6/uLLowOhioHealthWBC (Bld) [#/Vol]10.04 10*3/uLOhioHealthMagnesium Levelon 29-22-9422Lukltjgupkwyrx and review of laboratory resultsNormalOhioHealthMagnesium [Mass/Vol]1.7 mg/dL1.6 - 2.4 mg/dLOhioHealthPOC Glucoseon 86-84-6700Qeypavh [Mass/Vol]174 mg/qAEvxp66 - 99 mg/dLOhioHealthInterpretation and review of laboratory resultsAbnormal OhioHealthGlucose [Mass/Vol]180 mg/rOVpgt53 - 99 mg/dLOhioHealthInterpretation and review of laboratory resultsAbnormalOhioHealthGlucose [Mass/Vol]166 mg/dL High65 - 99 mg/dLOhioHealthInterpretation and review of laboratory results AbnormalOhioHealthGlucose [Mass/Vol]127 mg/mJDlzg68 - 99 mg/dLOhioHealth Interpretation and review of laboratory resultsAbnormalOhioHealthBasic Metabolic Panelon 36-33-0902Tuiaj gap [Moles/Vol]10 mmol/L10 - 20 mmol/LOhioHealthCalcium [Mass/Vol]8.7 mg/dL8.4 - 10.2 mg/dLOhioHealthChloride [Moles/Vol]104 mmol/L98 - 108 mmol/LOhioHealthCreatinine [Mass/Vol]0.99 mg/dL0.50 - 1.30[facility] GFR/1.73 sq M predicted among non-blacks MDRD (S/P/Bld) [Vol rate/Area]The eGFR should be used for monitoring renal function only and not for medication dosing. GeorgiaHealthGFR/1.73 sq M.predicted CKD-EPI (S/P/Bld) [Vol rate/Area]86>=60 mL/min/1.73 z7PymiVuazrkLwzftkd [Mass/Vol]136 mg/jIJoqy77 - 99 mg/dLOhioHealth HCO3 [Moles/Vol]27 mmol/L21 - 32 mmol/LOhioHealthInterpretation and review of laboratory resultsAbnormalOhioHealthPotassium [Moles/Vol]3.8 mmol/L3.5 - 5.1 mmol/LOhioHealthSodium [Moles/Vol]137 mmol/L135 - 145 mmol/LOhioHealthUrea nitrogen [Mass/Vol]12 mg/dL8 - 25 mg/dLOhioHealthUrea nitrogen/Creatinine [Mass ratio]12.1 mg/mgOhioHealthCBCon 66-93-4957Pefnpqdimqz distribution width (RBC) [Entitic vol]15.9 %High11.6 - [...] [#/Vol] 4.25 10*6/uLLowOhioHealthWBC (Bld) [#/Vol]8.56 10*3/uLOhioHealthCRP, Inflammationon 63-93-9926OXS [Mass/Vol]132.0 mg/LHigh<=10.0Ohio[facility] Interpretation and review of laboratory resultsAbnormalOhioHealthMagnesium Level on 37-15-1371Uecjtdsavoajcp and review of laboratory resultsNormalOhioHealth Magnesium [Mass/Vol]1.8 mg/dL1.6 - 2.4 mg/dLOhioHealthPOC Glucoseon 11-18-2020 Glucose [Mass/Vol]175 mg/cIDvom19 - 99 mg/dLOhioHealthInterpretation and review of laboratory resultsAbnormalOhioHealthGlucose [Mass/Vol]111 mg/iKScge58 - 99 mg/dLOhioHealthInterpretation and review of laboratory resultsAbnormalOhioHealth Glucose [Mass/Vol]133 mg/ySPwfm33 - 99 mg/dLOhioHealthInterpretation and review of laboratory resultsAbnormalOhioHealthGlucose [Mass/Vol]154 mg/xYJehe79 - 99 mg/dLOhioHealthInterpretation and review of laboratory resultsAbnormalOhioHealth Sedimentation Rateon 63-27-3659QKT (Bld) [Velocity]110 mm/hHighOhioHealth Interpretation and review of laboratory resultsAbnormalOhioHealthAPTTon 83-39-3932sKPE Coag (Bld) [Time]Therapeutic range for APTT's is 68 - 104 seconds [facility] HospitalaPTT Coag (Bld) [Time]32 sOhioHealthInterpretation and review of laboratory resultsNormalOhioHealthBasic Metabolic Panelon 48-70-8385Setcc gap [Moles/Vol]9 mmol/LLow10 - 20 mmol/LOhioHealthCalcium [Mass/Vol]8.6 mg/dL8.4 - 10.2 mg/dLOhioHealthChloride [Moles/Vol]105 mmol/L98 - 108 mmol/LOhioHealth Creatinine [Mass/Vol]0.94 mg/dL0.50 - 1.30OhioHealthGFR/1.73 sq M predicted among non-blacks MDRD (S/P/Bld) [Vol rate/Area]The eGFR should be used for monitoring renal function only and not for medication dosing.OhioHealthGFR/1.73 sq M.predicted CKD-EPI (S/P/Bld) [Vol rate/Area]92>=60 mL/min/1.73 g6UlkaScorvk Glucose [Mass/Vol]86 mg/dL65 - 99 mg/dLOhioHealthHCO3 [Moles/Vol]26 mmol/L21 - 32 mmol/LOhioHealthInterpretation and review of laboratory resultsAbnormal OhioHealthPotassium [Moles/Vol]3.9 mmol/L3.5 - 5.1 mmol/LOhioHealthSodium [Moles/Vol]136 mmol/L135 - 145 mmol/LOhioHealthUrea nitrogen [Mass/Vol]11 mg/dL8 - 25 mg/dLOhioHealthUrea nitrogen/Creatinine [Mass ratio]11.7 mg/mgOhioHealth CBC WITH AUTO DIFFERENTIALon 71-68-4076Ouzgusibl (Bld) [#/Vol]0.07 10*3/uL OhioHealthBasophils/100 WBC (Bld)0.7 %OhioHealthEosinophils (Bld) [#/Vol]0.21 10*3/uLOhioHealthEosinophils/100 WBC (Bld)2.2 %[facility] HospitalErythrocyte distribution width (RBC) [Entitic vol]15.9 %High11.6 - 14.8 %[facility] Hematocrit (Bld) [Volume fraction]36.4 %Low41 - 53 %[facility] HospitalHemoglobin (Bld) [Mass/Vol]11.0 g/dLLow13.5 - 17.5 g/dLOhioHealthImmature granulocytes (Bld) [#/Vol]0.11 10*3/uLOhioHealthImmature granulocytes/100 WBC (Bld)1.20 %[facility] Comment on above:The IG parameter is [...] %OhioHealthNeutrophils (Bld) [#/Vol]5.78 10*3/uL OhioHealthNeutrophils/100 WBC (Bld)61.5 %[facility] HospitalNucleated RBC (Bld) [#/Vol] 0.00 10*3/uLOhioHealthNucleated RBC/100 WBC (Bld) [Ratio]0.0 %OhioHealthPlatelet mean volume (Bld) [Entitic vol]10.2 fL9.4 - 12.4 fLOhioHealthPlatelets (Bld) [#/Vol]644 10*3/uLHighOhioHealthRBC (Bld) [#/Vol]4.26 10*6/uLLowOhioHealthWBC (Bld) [#/Vol]9.40 10*3/uLOhioHealthMagnesium Levelon 72-08-6470Qcmbxucxagqgng and review of laboratory resultsNormalOhioHealthMagnesium [Mass/Vol]1.8 mg/dL1.6 - 2.4 mg/dLOhioHealthPOC Glucoseon 07-57-5644Yeohbko [Mass/Vol]192 mg/fLLzjg28 - 99 mg/dLOhioHealthInterpretation and review of laboratory resultsAbnormal OhioHealthGlucose [Mass/Vol]132 mg/kZOruo06 - 99 mg/dLOhioHealthInterpretation and review of laboratory resultsAbnormalOhioHealthGlucose [Mass/Vol]148 mg/dL High65 - 99 mg/dLOhioHealthInterpretation and review of laboratory results AbnormalOhioHealthGlucose [Mass/Vol]94 mg/dL65 - 99 mg/dLOhioHealth Interpretation and review of laboratory resultsNormalOhioHealthBasic Metabolic Panelon 34-33-9267Pgpav gap [Moles/Vol]8 mmol/LLow10 - 20 mmol/LOhioHealth Calcium [Mass/Vol]8.6 mg/dL8.4 - 10.2 mg/dLOhioHealthChloride [Moles/Vol]104 mmol/L98 - 108 mmol/LOhioHealthCreatinine [Mass/Vol]1.03 mg/dL0.50 - 1.30 OhioHealthGFR/1.73 sq M predicted among non-blacks MDRD (S/P/Bld) [Vol rate/Area]The eGFR should be used for monitoring renal function only and not for medication dosing.OhioHealthGFR/1.73 sq M.predicted CKD-EPI (S/P/Bld) [Vol rate/Area]82>=60 mL/min/1.73 z1YubiAqncdjEaldamw [Mass/Vol]103 mg/sBVlsu20 - 99 mg/dLOhioHealthHCO3 [Moles/Vol]30 mmol/L21 - 32 mmol/LOhioHealthInterpretation and review of laboratory resultsAbnormalOhioHealthPotassium [Moles/Vol]3.7 mmol/L3.5 - 5.1 mmol/LOhioHealthSodium [Moles/Vol]138 mmol/L135 - 145 mmol/L OhioHealthUrea nitrogen [Mass/Vol]10 mg/dL8 - 25 mg/dLOhioHealthUrea nitrogen/Creatinine [Mass ratio]9.7 mg/mgLowOhioHealthBone Anaerobic Cultureon 26-12-3292Ysdzeygh identified Anaer cx Nom (Unsp spec)No Anaerobic Growth at 5 DaysOhioHealthCBCon 69-18-7998Amzakdykzkt distribution width (RBC) [Entitic vol] 15.9 %High11.6 [...] resultsNormalOhioHealthMagnesium [Mass/Vol]1.8 mg/dL1.6 - 2.4 mg/dLOhioHealthPOC Glucoseon 93-68-7467Tnrzbdw [Mass/Vol]157 mg/sWMnuu02 - 99 mg/dLOhioHealthInterpretation and review of laboratory resultsAbnormalOhioHealthGlucose [Mass/Vol]105 mg/aRPuog62 - 99 mg/dL OhioHealthInterpretation and review of laboratory resultsAbnormalOhioHealth Glucose [Mass/Vol]147 mg/pSMpfh19 - 99 mg/dLOhioHealthInterpretation and review of laboratory resultsAbnormalOhioHealthGlucose [Mass/Vol]100 mg/pKUjvr87 - 99 mg/dLOhioHealthInterpretation and review of laboratory resultsAbnormalOhioHealth Sedimentation Rateon 30-55-6250BEI (Bld) [Velocity]113 mm/hHighOhioHealth Interpretation and review of laboratory resultsAbnormalOhioHealthBasic Metabolic Panelon 79-46-4176Mmyex gap [Moles/Vol]9 mmol/LLow10 - 20 mmol/LOhioHealth Calcium [Mass/Vol]8.4 mg/dL8.4 - 10.2 mg/dLOhioHealthChloride [Moles/Vol]106 mmol/L98 - 108 mmol/LOhioHealthCreatinine [Mass/Vol]0.89 mg/dL0.50 - 1.30 OhioHealthGFR/1.73 sq M predicted among non-blacks MDRD (S/P/Bld) [Vol rate/Area]The eGFR should be used for monitoring renal function only and not for medication dosing.OhioHealthGFR/1.73 sq M.predicted CKD-EPI (S/P/Bld) [Vol rate/Area]97>=60 mL/min/1.73 f1EvjqNarwyeNxqooix [Mass/Vol]139 mg/xOGxel60 - 99 mg/dLOhioHealthHCO3 [Moles/Vol]26 mmol/L21 - 32 mmol/LOhioHealthInterpretation and review of laboratory resultsAbnormalOhioHealthPotassium [Moles/Vol]3.7 mmol/L3.5 - 5.1 mmol/LOhioHealthSodium [Moles/Vol]137 mmol/L135 - 145 mmol/L OhioHealthUrea nitrogen [Mass/Vol]14 mg/dL8 - 25 mg/dLOhioHealthUrea nitrogen/Creatinine [Mass ratio]15.7 mg/mgOhioHealthBone Aerobic Cultureon 95-06-5164Vawquicw identified Aer cx Nom (Bone)Rare growth Staphylococcus aureus AbnormalOhioHealthComment on above:This Staphylococcus aureus is Methicillin SUSCEPTIBLE by PBP2a testing. Beta-lactams like Cefazolinand Nafcillin are superior to Vancomycin for treating mSsa.Interpretation and review of laboratory resultsAbnormalOhioHealthMicroscopic observation Gram stain Nom (Unsp spec)No Organisms SeenOhioHealthMicroscopic observation Gram stain Nom (Unsp spec)Rare WBCOhioHealthMicroscopic observation Gram stain Nom (Unsp spec)No Epithelial Cells SeenOhioHealthCBCon 90-94-8839Gzglourjlyb distribution width (RBC) [Entitic vol]15.9 %High11.6 - [...] (Bld) [#/Vol]8.97 10*3/uLOhioHealthCT ABDOMEN PELVIS WITHOUT CONTRASTon 44-51-3276AR ABDOMEN PELVIS WITHOUT CONTRAST EXAMINATION: CT ABDOMEN PELVIS WITHOUT CONTRAST - 11/15/2020 COMPARISON: CT angiogram chest from [place] dated 11/05/2020. No prior CT imaging of [...] perinephric fluid collections or ascites. There is aozakrgk-tc-gewim amount of retained stool in the proximal colon and iddvh-gj-dsbrawse amount of retained stool in the distal [...] retained stool in the proximal colon and nouyr-kb-sfkbwovr amount of retained stool in the distal colon, which could be related to a mild colonic ileus. No evidence of a bowel obstruction. 3. Mild pelvic and inguinal lymphadenopathy that may be reactive. 4. Questionable sludge or gallstones in the gallbladder. No evidence of cholecystitis. 5. Trace pleural effusions and mild atelectasis in both lung bases. [employer] Workstation ID: [id number] Dictated by: MANA PEÑA on WedNov 15, 2020 2:11:25 PM EST Transcribed by: LUTHER TREJO on WedNov 15, 2020 2:15:19 PM EST Finalized by: AMNA PEÑA on WedNov 15, 2020 2:30:12 PM ESTAshtabula County Medical CenterComment on above:Order Comment: Injury/Trauma or Illness?:Illness/Other How long have you had these symptoms (acute/chronic)?:Acute Reason for exam?:non healing wound on top of foot History of cancer?: Surgeries, chemotherapy, or radiation?: Type of Exam?:Initial Additional signs and symptoms?:painCT Abdomen Pelvis Without Contraston 03-87-6100Zymksticw, Rad In [employer] - 11/15/2020 2:32 PM EST EXAMINATION: CT ABDOMEN PELVIS WITHOUT CONTRAST - 11/15/2020 COMPARISON: CT angiogram chest from [place] dated 11/05/2020. No prior CT imaging of [...] perinephric fluid collections or ascites. There is akyixdfn-pg-keikw amount of retained stool in the proximal colon and biuna-oz-brthgsmi amount of retained stool in the distal [...] retained stool in the proximal colon and glito-ev-vmatpfdh amount of retained stool in the distal colon, which could be related to a mild colonic ileus. No evidence of a bowel obstruction. 3. Mild pelvic and inguinal lymphadenopathy that may be reactive. 4. Questionable sludge or gallstones in the gallbladder. No evidence of cholecystitis. 5. Trace pleural effusions and mild atelectasis in both lung bases. [employer] Workstation ID: [id number]: CT ABDOMEN PELVIS WITHOUT CONTRAST - 11/15/2020 COMPARISON: CT angiogram chest from [place] dated 11/05/2020. No prior CT imaging of [...] No perinephric fluidcollections or ascites. There is givaddgj-vt-pcvdb amount of retained stool in the proximal colon and fvfcm-yg-qynonorq amount of retained stool in the distal [...] retained stool in the proximal colon and ggtvy-vr-bxwiverc amount of retained stool in the distal colon, which could be related to a mild colonic ileus. No evidence of a bowel obstruction. 3. Mild pelvic and inguinal lymphadenopathy that may be reactive. 4. Questionable sludge or gallstones in the gallbladder. No evidence of cholecystitis. 5. Trace pleural effusions andmild atelectasis in both lung bases. [facility] Workstation ID: [id number] Levelon 08-43-4863Doasbypxerqipe and review of laboratory resultsNormalOhioHealthMagnesium [Mass/Vol]1.9 mg/dL1.6 - 2.4 mg/dL [facility] Glucoseon 09-45-0666Lfxtlzw [Mass/Vol]171 mg/kCDhwy43 - 99 mg/dL OhioHealthInterpretation and review of laboratory resultsAbnormalOhioHealth Glucose [Mass/Vol]122 mg/zZDbhf41 - 99 mg/dLMeioHealthInterpretation and review of laboratory resultsAbnormalOhioHealthGlucose [Mass/Vol]129 mg/zYLmbu35 - 99 mg/dLOhioHealthInterpretation and review of laboratory resultsAbnormalOhioHealth Glucose [Mass/Vol]142 mg/oGZmis78 - 99 mg/dLOhioHealthInterpretation and review of laboratory resultsAbnormalOhioHealthXR FOOT LEFT 3+ VIEWS (STANDARD)on 82-61-8453QY FOOT LEFT 3+ VIEWS (STANDARD)EXAMINATION: XR FOOT [...] REILLY on WedNov 15, 2020 7:35:52 PM [facility] SystemComment on above:Order Comment: Injury/Trauma or Illness?:Illness/Other How [...] or fracture. There is a plantar calcaneal spur.[facility] 11/15/2020 7:38 PM EST EXAMINATION: [...] or fracture. Workstation ID: [id number] Metabolic Panelon 19-17-2201Whzzl gap [Moles/Vol]8 mmol/LLow10 - 20 mmol/LOhioHealthCalcium [Mass/Vol]7.9 mg/dLLow8.4 - 10.2 mg/dLOhioHealthChloride [Moles/Vol]105 mmol/L98 - 108 mmol/LOhioHealth Creatinine [Mass/Vol]0.97 mg/dL0.50 - 1.30OhioHealthGFR/1.73 sq M predicted among non-blacks MDRD (S/P/Bld) [Vol rate/Area]The eGFR should be used for monitoring renal function only and not for medication dosing.OhioHealthGFR/1.73 sq M.predicted CKD-EPI (S/P/Bld) [Vol rate/Area]88>=60 mL/min/1.73 i3BjjsJrxdnt Glucose [Mass/Vol]153 mg/dLWyrh55 - 99 mg/dLOhioHealthHCO3 [Moles/Vol]26 mmol/L 21 - 32 mmol/LOhioHealthInterpretation and review of laboratory resultsAbnormal OhioHealthPotassium [Moles/Vol]4.0 mmol/L3.5 - 5.1 mmol/LOhioHealthSodium [Moles/Vol]135 mmol/L135 - 145 mmol/LOhioHealthUrea nitrogen [Mass/Vol]14 mg/dL8 - 25 mg/dLOhioHealthUrea nitrogen/Creatinine [Mass ratio]14.4 mg/mgOhioHealth CBCon 92-67-4102Xxmzowkvxrw distribution width (RBC) [Entitic vol]16.1 %High11.6 - 14.8 %OhioHealthHematocrit (Bld) [Volume fraction]33.3 %Low41 - 53 %[facility] Hemoglobin (Bld) [Mass/Vol]10.0 g/dLLow13.5 - 17.5 g/dLOhioHealthInterpretation and review of laboratory resultsAbnormalOhioHealthMCH (RBC) [Entitic mass]25.3 pgLow26 - 34 pgOhioHealthMCHC (RBC) [Mass/Vol]30.0 g/dLLow31 - 37 g/dLOhioHealth MCV (RBC) [Entitic vol]84.1 fL80 - 100 fLOhioHealthNucleated RBC (Bld) [#/Vol] 0.00 10*3/uLOhioHealthNucleated RBC/100 WBC (Bld) [Ratio]0.0 %OhioC[facility]view HospitalPlatelet mean volume (Bld) [Entitic vol]10.4 fL9.4 - 12.4 fLOhioHealthPlatelets (Bld) [#/Vol]583 10*3/uLHighOhioHealthRBC (Bld) [#/Vol]3.96 10*6/uLLowOhioHealthWBC (Bld) [#/Vol]10.09 10*3/uLOhioHealthMagnesium Levelon 56-54-6355Xcizkddkolcdpz and review of laboratory resultsNormalOhioHealthMagnesium [Mass/Vol]1.9 mg/dL1.6 - 2.4 mg/dLOhioHealthPOC Glucoseon 83-22-6343Nxqnxwt [Mass/Vol]160 mg/aOTkei38 - 99 mg/dLOhioHealthInterpretation and review of laboratory resultsAbnormal OhioHealthGlucose [Mass/Vol]151 mg/oMOyjp11 - 99 mg/dLOhioHealthInterpretation and review of laboratory resultsAbnormalOhioHealthGlucose [Mass/Vol]142 mg/dL High65 - 99 mg/dLOhioHealthInterpretation and review of laboratory results AbnormalOhioHealthGlucose [Mass/Vol]138 mg/xJDkpt57 - 99 mg/dLOhioHealth Interpretation and review of laboratory resultsAbnormalOhioHealthBasic Metabolic Panelon 82-69-0468Gqfae gap [Moles/Vol]8 mmol/LLow10 - 20 mmol/LOhioHealth Calcium [Mass/Vol]7.8 mg/dLLow8.4 - 10.2 mg/dLOhioHealthChloride [Moles/Vol]105 mmol/L98 - 108 mmol/LOhioHealthCreatinine [Mass/Vol]0.85 mg/dL0.50 - 1.30 OhioHealthGFR/1.73 sq M predicted among non-blacks MDRD (S/P/Bld) [Vol rate/Area]The eGFR should be used for monitoring renal function only and not for medication dosing.OhioHealthGFR/1.73 sq M.predicted CKD-EPI (S/P/Bld) [Vol rate/Area]99>=60 mL/min/1.73 l6FmquUivhckHabjbmi [Mass/Vol]176 mg/uQEnee30 - 99 mg/dLOhioHealthHCO3 [Moles/Vol]26 mmol/L21 - 32 mmol/LOhioHealthInterpretation and review of laboratory resultsAbnormalOhioHealthPotassium [Moles/Vol]4.0 mmol/L3.5 - 5.1 mmol/LOhioHealthSodium [Moles/Vol]135 mmol/L135 - 145 mmol/L OhioHealthUrea nitrogen [Mass/Vol]13 mg/dL8 - 25 mg/dLOhioHealthUrea nitrogen/Creatinine [Mass ratio]15.3 mg/mgOhioHealthCBCon 70-32-9993Jwpyihcnyky distribution width (RBC) [Entitic vol]16.0 %High11.6 - 14.8 %[facility] Hematocrit (Bld) [Volume fraction]32.7 %Low41 - 53 %[facility] HospitalHemoglobin (Bld) [Mass/Vol]10.1 g/dLLow13.5 - 17.5 g/dLOhioHealthInterpretation and review of laboratory resultsAbnormalOhioHealthMCH (RBC) [Entitic mass]25.6 pgLow26 - 34 pg OhioC[facility] Fairview HospitalMCHC (RBC) [Mass/Vol]30.9 g/dLLow31 - 37 g/dLOhioHealthMCV (RBC) [Entitic vol]82.8 fL80 - 100 fLOhioHealthNucleated RBC (Bld) [#/Vol]0.00 10*3/uL OhioHealthNucleated RBC/100 WBC (Bld) [Ratio]0.0 %[facility] HospitalPlatelet mean volume (Bld) [Entitic vol]10.4 fL9.4 - 12.4 fLOhioHealthPlatelets (Bld) [#/Vol]545 10*3/uLHighOhioHealthRBC (Bld) [#/Vol]3.95 10*6/uLLowOhioHealthWBC (Bld) [#/Vol] 10.51 10*3/uLOhioHealthMagnesium Levelon 48-08-3610Jwrtihlzwilvqp and review of laboratory resultsNormalOhioHealthMagnesium [Mass/Vol]2.0 mg/dL1.6 - 2.4 mg/dL [facility] Gastric Emptyingon 69-02-6943Ceaucjb gastric emptying. Workstation ID: [id number], Rad In [employer] [facility] - 11/13/2020 1:36 PM EST EXAMINATION: MA GASTRIC EMPTYING HISTORY: Abdominal discomfort, nausea, vomiting [...] 0-60%). 4 HOURS: 17% (normal range = 0-10%).[facility] Glucoseon 33-79-9461Nnvuuuq [Mass/Vol]189 mg/mRMjxm04 - 99 mg/dLOhioHealthInterpretation and review of laboratory resultsAbnormalOhioHealth Glucose [Mass/Vol]186 mg/kGJfmx68 - 99 mg/dLOhioHealthInterpretation and review of laboratory resultsAbnormalOhioHealthGlucose [Mass/Vol]221 mg/mOBtjc43 - 99 mg/dLOhioHealthInterpretation and review of laboratory resultsAbnormalOhioHealth Glucose [Mass/Vol]162 mg/uMYwxt76 - 99 mg/dLOhioHealthInterpretation and review of laboratory resultsAbnormalOhioHealthTISSUE EXAMon 63-50-0759Bjpc Report Surgical Pathology Report Case: [id number] Authorizing Provider: Leanne Cherry DPM Collected: 11/11/2020 04:44 PM Ordering Location: [facility] Peri Received: 11/12/2020 09:31 AM Pathologist: Joni Perez DO Specimen: Foot, Left OhioHealthPathology report final diagnosis Narrative o3bfqZSdYRHzmPM8TwHzDUBfn5cth2SpwXDegBBaWFpwkXQwlwTysp47wTQ1iN83WJ7pCDJoCjT9PSEz pqK1Ior3CCPiXHHvxHIi F577z6qni9yctnBxnDL4bAbsRTGxWMXmQPcqAUYvAyAlIKZPAyHdGx6cSRJtdrSrxXDvpPeqKQHsoWAY j446BHYipAKdj4ansllf hWTsZILuylCgtQp4PeVyeLshZxCbEZNrXDIcxNJdEO5haDUutRauxBb4zZBiUCOzejftHBAoVNPgnc4= [facility] report gross observation Narrative k3iglTSnCYVyaEK4LkLwJPJwb0aaf5HyoKFtwWZvZBgfnEXxgnZnck33gHV2jM70OZ6nUPAkRyH8JYFi ksZ5Qfh3HIIdAFEbwJSa P186e7qed4mmjdAgmTA9lGtxMKXwAFJpJNowUSOdLdGtQpKdRAl9JXMwcQ0lZl0eiICgwL9tYJSgn0ag xvD4WEXjEnQoNg4cqDea PADrsXKZj70mBcpdPALra3MeX3C8YITqHZzom5ycLULmKLesy7TcVFtOLJEVYG4KGG8ssXS6IMbHGTHQ I1tVrIH6FWHeoWT7AP29 QGKbWEFopQVuBTphQ322zMOtWAqjQvaziWI9BWyrUjmbwW9hzLITDKOUVcgQYgynawEtLK6YBPZPIU0C uNR4NFToxAK9IC15OIYf OTXhxNGxZLfeE202EUNsJUbeAKMpTaJnZTPwTJouQR63NPSwNJ8yBPCcwzGunKYcx5XimX6rYUTuMFQ5 WZCtRqC1QKYaPhShdUta pt50VJH3l4spjXDnXQanWyedvYNuzoF9INsDDNYWILsJTuWeBG2qNYrOX5KSMZgVQvrpOPT6M3bqgRG4 r4lwcNLin6a1VTtcJMZ7 fX16EPKyAIibs2hvVQVyRGirm5GtEMpFUVISQR9YAH1fxLE5GRyCXWRLNKrnSSJ6A5cplID5q7fmiFVk o9k2DYcoXXS8oBvapUJl brutepBlDCAdV0UwgSx5cMNkIOGqsjRaLGFbgMKaOadoJKAaq79kXNNCi8YhhUa6XBO7Jt8xmUGcTMKn blKaAXTfa3YjfORrVPPx BzssCBGszOWiVDlgAXMrB2PcsPIiPQgas4BtPMB4WX8lvfZ2fY4fWBQcmcGtom8xEFFwgKgyKDOwe9Ct NEicOJwhz9DbcNXhGB9r RzD5MXvlHBMikxNgDWM8QN94CHIYFD2lTmcziYXiQY7DTVR3LGWcMFyzGOEloNCdVULbK67IJrIZQKMF X38DPGREHMNJF9WZI5kC HFD7FWSmqLN1XS6uNVP2T0etZWDbM89NDyRMMQXFL08PRDAATQHTF4XJAOTOZLkGQ7UKGQ3UXWYITXHH WH2VFWjQVbGDUJmQV8YK VC9DDFDJPHWRYP6RUoYuSVkKC1UWM0sQPJFeRTOVWBFRWOCjSoIAVQ8rHRt2YNYjvT8pEPXkCVK8JyTg GUW1MagrDY9eBMeEGQPc jxSfO3ebLBazuPQ9WzCxHRO6YpiaIX0cQMrYB8HEO1hUCUExSGRPIRBQFLIbVV0QYVbRVT7OLFGcRHFU OUDUHBJzDqTLEE0mIZqR MP8ZFVMgVPMJKZRSALKzXA9GKZGLUI2ZADDFUIEOJ30VSHLVGUXRI9XOY2eEZZAOFLHEUmVXKrWCSW1D IUKHTLVDKN8PMwF7UnfhNulqvzJksxuacrd report microscopic observation Narrative Other stain a7vglEKmNJWiwNBjHgEjPLOzBEMsf3ypAAMxcTVyLiXdHqIrKjXiOjonvBEfXHOaQsKox8mol624zWXh b3btLBKwMcX9xEIuTZHx lZUfZ948ERGcQHflr3ajh4MhWHKjkOYie1J7QKEKezkgiAc1oCqlS62gq7L8HqwmI2gnDBEzAGHyF2Vj TL1lMSRtBuj7SPO6VAB3 CMYlVZZnB9VqOD0fBXKcvUSuRWp8w6kjjCccKJAxYFM1v0toLVzdfhBrXH9zix5maZo5n2hptdVwTPNg VCJmpISUITLiL7IapMld Vq9cpKg6lCqjXvhwGJI1Bup5IF6ujr07wqq5oGaqUOOnfwxzYsI8EXarUJQdeffmAMa4IOwhVZDwbCX7 KFYupJRyB2QtJQZaAH7x wnv4CJJ6OSswTDNtMcV6GRBzwBBhADCbuZfxEGaew148WUM1QaPqKL0bL2Qvl0T8qV8mdLFdSQJtfOGn MtUqYWXwbd3gkNVzBGct y2EoNZM5ibQ4yLMnbYDrCPCbOD85Ufiyn3JaUtymHZN5VQNdwaCjt4Rtu5wtFzBhbxKzT7tbA0CeWURh ZFCbVFBhNqPvnaLps9Fc g9MyaKDnhNf5m9cbHAEiKECvpDots8zjCLC9KVNyN3A8iFOjc9gkCJwgPWJezKK1znV2XBIhfAXsM6Op uV0eMBAxLT1nhke7p2cl BIF7GVvgCWJkGyR2ebV4RHVxcZLzHFQrfIvyQXxbm206UKL3EsTrOMQza5YvX8VzoDqcA70qoLpzZ39r NDYotIyywZ1edSnseA0b VbYdGsVtDFnrlVvofOGqzkzcBJuqevFiGHixslnlHONlVAyiV1xiWfSySHXprOevQBmxh8SoOHRzKYDl YyOdGZmxkz7uV02fgLRfSUktkXaoYGBxo95qiMGxxOJyOc0szFPzGiamABX2UucjBlzrodDC DOPPLER SEGMENTAL ARTERIAL LEGS BILATERALon 55-33-7721WT DOPPLER SEGMENTAL ARTERIAL LEGS BILATERALPatient Info Name: MORE KINGSLEY Age: 55 years : 1965 Gender: Male Exam Date: 11/13/2020 8:13 AM Patient Status: Inpatient Clin Tech: Rafat Tony RVT Indications I73.9 - Peripheral vascular disease, unspecified Procedure Description 67964 Complete bilateral noninvasive physiologic studies of upper [...] by ABILIO Gutiérrez DO on 11/13/2020 03:26 [facility] - 11/13/2020 3:27 PM EST Patient Info Name: MORE KINGSLEY Age: 55 years : 1965 Gender: Male Exam Date: 11/13/2020 8:13 AM Patient Status: Inpatient Clin Tech: Rafat Tony RVT Indications I73.9 - Peripheral vascular disease, unspecified Procedure Description 07442 Complete bilateral noninvasive physiologic studies of upper [...] Date: 11/13/2020 8:13 AM Patient Status: Inpatient Clin Tech: Rafat Tony RVT Indications I73.9 - Peripheral vascular disease, unspecified Procedure Description 62614 Complete bilateral noninvasive physiologic studies of upper [...] ABILIO Gutiérrez DO on 11/13/2020 03:26 PM [facility] Metabolic Panelon 59-72-6904Poywh gap [Moles/Vol]10 mmol/L10 - 20 mmol/LOhioHealthCalcium [Mass/Vol]8.0 mg/dLLow8.4 - 10.2 mg/dLOhioHealth Chloride [Moles/Vol]104 mmol/L98 - 108 mmol/LOhioHealthCreatinine [Mass/Vol]0.84 mg/dL0.50 - 1.30OhioHealthGFR/1.73 sq M predicted among non-blacks MDRD (S/P/Bld) [Vol rate/Area]The eGFR should be used for monitoring renal function only and not for medication dosing.[facility]HealthGFR/1.73 sq M.predicted CKD-EPI (S/P/Bld) [Vol rate/Area]99>=60 mL/min/1.73 m9RdmrLzgirwJzexlfx [Mass/Vol]86 mg/dL65 - 99 mg/dLOhioHealthHCO3 [Moles/Vol]25 mmol/L21 - 32 mmol/LOhioHealth Interpretation and review of laboratory resultsAbnormalOhioHealthPotassium [Moles/Vol]4.1 mmol/L3.5 - 5.1 mmol/LOhioHealthSodium [Moles/Vol]135 mmol/L135 - 145 mmol/LOhioHealthUrea nitrogen [Mass/Vol]10 mg/dL8 - 25 mg/dLOhioHealthUrea nitrogen/Creatinine [Mass ratio]11.9 mg/mgOhioHealthCBCon 48-62-5213Xqgecrdvocw distribution width (RBC) [Entitic vol]16.4 %High11.6 - [...] 10*6/uLLowOhioHealthWBC (Bld) [#/Vol] 13.36 10*3/uLHighOhioHealthCOVID-19/INFLUENZA A,B MOLECULARon 70-56-0255PFAWL- 19/INFLUENZA A,B SSLPFQOCOQEKM-LFD-8 (JESSIKA): Not Detected INFLUENZA A (JESSIKA): Not Detected INFLUENZA B (JESSIKA): Not DetectedNormalCincinnati Shriners HospitalComment on above:Order Comment: This test was [...] at the following links: For Healthcare Providers: https://www.fda.gov/media/455099/download For Patients: https://www.fda.gov/media/099571/downloadPerformed By: #### [id number] #### [facility] [address] [address] Warren Barnett M.D. [id number]-25/Influenza A,B Molecularon 34-45-3993Gpfjadzar ANot Detected Not DetectedOhioHealthInfluenza BNot DetectedNot DetectedOhioHealth Interpretation and review of laboratory ytzknzjGgufrvPjeuFmiotvDRQC-FuR-8Wxa DetectedNot DetectedOhioHealthThis test was performed under the [...] found at the following links: For HealthcareProviders: https://www.fda.gov/media/885945/download For Patients: https://www.fda.gov/media/369532/downloadOhioHealthMagnesium Levelon 11-12-2020 Interpretation and review of laboratory resultsNormalOhioHealthMagnesium [Mass/Vol]1.8 mg/dL1.6 - 2.4 mg/dLOhioHealthNM GASTRIC EMPTYINGon 34-63-4848ID GASTRIC EMPTYINGEXAMINATION: NM GASTRIC EMPTYING HISTORY: Abdominal [...] NOE on WedNov 13, 2020 1:34:26 PM [facility]Comment on above:Order Comment: Injury/Trauma or Illness?:Illness/Other How long have you had these symptoms (acute/chronic)?:Chronic a few years now Reason for exam?:Recurrent nausea and vomiting and abdominal discomfort uncontrolled diabetes Type of Exam?:Ongoing Additional signs and symptoms?:nausea and vomiting almost daily for a few years now,POC Glucoseon 63-35-1255Cmaocak [Mass/Vol]159 mg/xPHfmc94 - 99 mg/dL OhioHealthInterpretation and review of laboratory resultsAbnormalOhioHealth Glucose [Mass/Vol]161 mg/bMWzqj14 - 99 mg/dLOhioHealthInterpretation and review of laboratory resultsAbnormalOhioHealthGlucose [Mass/Vol]153 mg/rYNgsx38 - 99 mg/dLOhioHealthInterpretation and review of laboratory resultsAbnormalOhioHealth Glucose [Mass/Vol]71 mg/dL65 - 99 mg/dLOhioHealthInterpretation and review of laboratory resultsNormalOhioHealthBasic Metabolic Panelon 40-99-6657Uvcjh gap [Moles/Vol]9 mmol/LLow10 - 20 mmol/LOhioHealthCalcium [Mass/Vol]8.1 mg/dLLow8.4 - 10.2 mg/dLOhioHealthChloride [Moles/Vol]106 mmol/L98 - 108 mmol/LOhioHealth Creatinine [Mass/Vol]1.00 mg/dL0.50 - 1.30OhioHealthGFR/1.73 sq M predicted among non-blacks MDRD (S/P/Bld) [Vol rate/Area]The eGFR should be used for monitoring renal function only and not for medication dosing.[facility]HealthGFR/1.73 sq M.predicted CKD-EPI (S/P/Bld) [Vol rate/Area]85>=60 mL/min/1.73 y5PhfnPbkmtb Glucose [Mass/Vol]108 mg/fOGiwo98 - 99 mg/dLOhioHealthHCO3 [Moles/Vol]26 mmol/L 21 - 32 mmol/LOhioHealthInterpretation and review of laboratory resultsAbnormal OhioHealthPotassium [Moles/Vol]4.0 mmol/L3.5 - 5.1 mmol/LOhioHealthSodium [Moles/Vol]137 mmol/L135 - 145 mmol/LOhioHealthUrea nitrogen [Mass/Vol]8 mg/dL8 - 25 mg/dLOhioHealthUrea nitrogen/Creatinine [Mass ratio]8.0 mg/mgLowOhioHealth CBCon 84-39-8580Vfhhxunkkkx distribution width (RBC) [Entitic vol]16.2 %High11.6 - 14.8 %[facility] HospitalHematocrit (Bld) [Volume fraction]36.2 %Low41 - 53 %[facility] Hemoglobin (Bld) [Mass/Vol]11.2 g/dLLow13.5 - 17.5 g/dLOhioHealthInterpretation and review of laboratory resultsAbnormalOhioHealthMCH (RBC) [Entitic mass]25.7 pgLow26 - 34 pgOhioHealthMCHC (RBC) [Mass/Vol]30.9 g/dLLow31 - 37 g/dLOhioHealth MCV (RBC) [Entitic vol]83.0 fL80 - 100 fLOhioHealthNucleated RBC (Bld) [#/Vol] 0.00 10*3/uLOhioHealthNucleated RBC/100 WBC (Bld) [Ratio]0.0 %[facility] HospitalPlatelet mean volume (Bld) [Entitic vol]10.6 fL9.4 - 12.4 fLOhioHealthPlatelets (Bld) [#/Vol]511 10*3/uLHighOhioHealthRBC (Bld) [#/Vol]4.36 10*6/uLLowOhioHealthWBC (Bld) [#/Vol]11.96 10*3/uLHighOhioHealthMagnesium Levelon 11-11-2020 Interpretation and review of laboratory resultsNormalOhioHealthMagnesium [Mass/Vol]1.7 mg/dL1.6 - 2.4 mg/dLOhioHealthInterpretation and review of laboratory resultsNormalOhioHealthMagnesium [Mass/Vol]1.8 mg/dL1.6 - 2.4 mg/dL [facility] Glucoseon 58-07-3311Qqvczdq [Mass/Vol]104 mg/kYPnsn27 - 99 mg/dL OhioHealthInterpretation and review of laboratory resultsAbnormalOhioHealth Glucose [Mass/Vol]86 mg/dL65 - 99 mg/dLOhioHealthInterpretation and review of laboratory resultsNormalOhioHealthGlucose [Mass/Vol]106 mg/cKQoey59 - 99 mg/dL OhioHealthInterpretation and review of laboratory resultsAbnormalOhioHealth Glucose [Mass/Vol]115 mg/rZZzwe59 - 99 mg/dLOhioHealthInterpretation and review of laboratory resultsAbrmalOhioHealthBasi Metabolic Panelon 75-81-3594Txmxd gap [Moles/Vol]9 mmol/LLow10 - 20 mmol/LOhioHealthCalcium [Mass/Vol]7.9 mg/dLLow 8.4 - 10.2 mg/dLOhioHealthChloride [Moles/Vol]104 mmol/L98 - 108 mmol/L [facility] HospitalCreatinine [Mass/Vol]0.94 mg/dL0.50 - 1.30OhioHealthGFR/1.73 sq M predicted among non-blacks MDRD (S/P/Bld) [Vol rate/Area]The eGFR should be used for monitoring renal function only and not for medication dosing.[facility] GFR/1.73 sq M.predicted CKD-EPI (S/P/Bld) [Vol rate/Area]92>=60 mL/min/1.73 m2 [facility] HospitalGlucose [Mass/Vol]151 mg/mJOlne85 - 99 mg/dLOhioHealthHCO3 [Moles/Vol] 26 mmol/L21 - 32 mmol/LOhioHealthInterpretation and review of laboratory results AbnormalOhioHealthPotassium [Moles/Vol]3.4 mmol/LLow3.5 - 5.1 mmol/LOhioHealth Sodium [Moles/Vol]136 mmol/L135 - 145 mmol/LOhioHealthUrea nitrogen [Mass/Vol]8 mg/dL8 - 25 mg/dLOhioHealthUrea nitrogen/Creatinine [Mass ratio]8.5 mg/mgLow OhioHealthCBCon 00-50-7274Zyvgyudpbhq distribution width (RBC) [Entitic vol]16.4 %High11.6 - [...] (Bld)No Growth After 5 DaysOhioHealthMagnesium Level on 73-79-8858Kdtfjsxthtlucz and review of laboratory resultsNormalOhioHealth Magnesium [Mass/Vol]1.9 mg/dL1.6 - 2.4 mg/dLOhioHealthPOC Glucoseon 2020 Glucose [Mass/Vol]136 mg/zXCcia75 - 99 mg/dLOhioHealthInterpretation and review of laboratory resultsAbnormalOhioHealthGlucose [Mass/Vol]137 mg/dMVksb70 - 99 mg/dLOhioHealthInterpretation and review of laboratory resultsAbnormalOhioHealth Glucose [Mass/Vol]151 mg/hCHcqj01 - 99 mg/dLOhioHealthInterpretation and review of laboratory resultsAbnormalOhioHealthGlucose [Mass/Vol]167 mg/lKVycp85 - 99 mg/dLOhioHealthInterpretation and review of laboratory resultsAbnormalOhioHealth Glucose [Mass/Vol]154 mg/yNGlku52 - 99 mg/dLOhioHealthInterpretation and review of laboratory resultsAbnormalOhioHealthGlucose [Mass/Vol]58 mg/dLLow65 - 99 mg/dLOhioHealthInterpretation and review of laboratory resultsAbnormalOhioHealth Basic Metabolic Panelon 08-21-3785Jodtz gap [Moles/Vol]11 mmol/L10 - 20 mmol/L OhioHealthCalcium [Mass/Vol]7.6 mg/dLLow8.4 - 10.2 mg/dLOhioHealthChloride [Moles/Vol]103 mmol/L98 - 108 mmol/LOhioHealthCreatinine [Mass/Vol]0.84 mg/dL 0.50 - 1.30OhioHealthGFR/1.73 sq M predicted among non-blacks MDRD (S/P/Bld) [Vol rate/Area]The eGFR should be used for monitoring renal function only and not for medication dosing.OhioHealthGFR/1.73 sq M.predicted CKD-EPI (S/P/Bld) [Vol rate/Area]100>=60 mL/min/1.73 g9IrjzInfvmeYcpdugv [Mass/Vol]85 mg/dL65 - 99 mg/dLOhioHealthHCO3 [Moles/Vol]24 mmol/L21 - 32 mmol/LOhioHealthInterpretation and review of laboratory resultsAbnormalOhioHealthPotassium [Moles/Vol]3.1 mmol/LLow3.5 - 5.1 mmol/LOhioHealthSodium [Moles/Vol]135 mmol/L135 - 145 mmol/L OhioHealthUrea nitrogen [Mass/Vol]10 mg/dL8 - 25 mg/dLOhioHealthUrea nitrogen/Creatinine [Mass ratio]11.9 mg/mgOhioHealthCBCon 43-93-2389Xemwbmlisew distribution width (RBC) [Entitic vol]16.2 %High11.6 - 14.8 %[facility] Hematocrit (Bld) [Volume fraction]35.8 %Low41 - [...] [#/Vol]4.32 10*6/uLLowOhioHealthWBC (Bld) [#/Vol] 11.42 10*3/uLHighOhioHealthMagnesium Levelon 06-90-5765Vzzohnimqisplh and review of laboratory resultsNormalOhioHealthMagnesium [Mass/Vol]1.7 mg/dL1.6 - 2.4 mg/dLOhioHealthPOC Glucoseon 94-67-7965Scdqnbn [Mass/Vol]112 mg/qGSmzd61 - 99 mg/dLOhioHealthInterpretation and review of laboratory [...] and review of laboratory resultsAbnormalOhioHealthUrine Aerobic Cultureon 75-48-4839Etlwapdl identified Aer cx Nom (Unsp spec)No Growth (<1,000 CFU/mL)OhioHealthWOUND AEROBIC CULTUREon 66-38-7202Hswrgsyi identified Aer cx Nom (Wound)Light Growth Staphylococcus aureusAbnormalOhioHealthComment on above:See susceptibility from same source/different date: 11/06/2020 Interpretation and review of laboratory resultsAbnormalOhioHealthMicroscopic observation Gram stain Nom (Wound)PositiveOhioHealthMicroscopic observation Gram stain Nom (Wound)Many WBCOhioHealthMicroscopic observation Gram stain Nom (Wound)No Epithelial Cells SeenOhioHealthBasic Metabolic Panelon 65-66-0280Qpuvx gap [Moles/Vol]9 mmol/LLow10 - 20 mmol/LOhioHealthCalcium [Mass/Vol]7.8 mg/dL Low8.4 - 10.2 mg/dLOhioHealthChloride [Moles/Vol]104 mmol/L98 - 108 mmol/L OhioHealthCreatinine [Mass/Vol]0.98 mg/dL0.50 - 1.30OhioHealthGFR/1.73 sq M predicted among non-blacks MDRD (S/P/Bld) [Vol rate/Area]The eGFR should be used for monitoring renal function only and not for medication dosing.[facility] GFR/1.73 sq M.predicted CKD-EPI (S/P/Bld) [Vol rate/Area]88>=60 mL/min/1.73 m2 OhioHealthGlucose [Mass/Vol]136 mg/jAHisn24 - 99 mg/dLOhioHealthHCO3 [Moles/Vol] 25 mmol/L21 - 32 mmol/LOhioHealthInterpretation and review of laboratory results AbnormalOhioHealthPotassium [Moles/Vol]3.4 mmol/LLow3.5 - 5.1 mmol/LOhioHealth Sodium [Moles/Vol]135 mmol/L135 - 145 mmol/LOhioHealthUrea nitrogen [Mass/Vol]14 mg/dL8 - 25 mg/dLOhioHealthUrea nitrogen/Creatinine [Mass ratio]14.3 mg/mg OhioHealthOtheron 74-65-1632Fadafobd identified Aer cx Nom (Wound)Moderate Growth Staphylococcus aureusAbnormalOhioHealthComment on above:This Staphylococcus aureus is Methicillin SUSCEPTIBLE by PBP2a testing. Beta-lactams like Cefazolinand Nafcillin are superior to Vancomycin for treating mSsa. Interpretation and review of laboratory resultsAbnormalOhioHealthMicroscopic observation Gram stain Nom (Wound)No Epithelial Cells SeenOhioHealthPOC Glucose on 31-18-0471Tipuzrl [Mass/Vol]105 mg/oJNczo31 - 99 mg/dLOhioHealth Interpretation and review of laboratory resultsAbnormalOhioHealthGlucose [Mass/Vol]98 mg/dL65 - 99 mg/dLOhioHealthInterpretation and review of laboratory resultsNormalOhioHealthGlucose [Mass/Vol]109 mg/hESjiq87 - 99 mg/dLOhioHealth Interpretation and review of laboratory resultsAbnormalOhioHealthGlucose [Mass/Vol]107 mg/mSLyxo63 - 99 mg/dLOhioHealthInterpretation and review of laboratory resultsAbnormalOhioHealthWOUND AEROBIC CULTUREon 14-94-6292Uhhijyeb identified Aer cx Nom (Wound)Moderate Growth Streptococcus agalactiae (Group B) AbnormalOhioHealthMicroscopic observation Gram stain Nom (Wound)Positive OhioHealthMicroscopic observation Gram stain Nom (Wound)No Organisms Seen OhioHealthMicroscopic observation Gram stain Nom (Wound)Few WBCOhioHealth Microscopic observation Gram stain Nom (Wound)Rare WBCOhioHealthSee susceptibility from same source/same date.[facility] HospitalCBC WITH AUTO DIFFERENTIALon 65-16-3824Qbuavfzyd (Bld) [#/Vol]0.09 10*3/uLOhioHealthBasophils/100 WBC (Bld) 0.7 %OhioHealthEosinophils (Bld) [#/Vol]0.22 10*3/uLOhioHealthEosinophils/100 WBC (Bld)1.8 %[facility] HospitalErythrocyte distribution width (RBC) [Entitic vol]15.9 % [...] (Bld) [#/Vol]4.25 10*6/uLLowOhioHealthWBC (Bld) [#/Vol]12.03 10*3/uLHighOhioHealthPOC Glucoseon 13-40-4094Uzcsojf [Mass/Vol]178 mg/wATwhm28 - 99 mg/dLOhioHealthInterpretation and review of laboratory resultsAbnormalOhioHealthGlucose [Mass/Vol]205 mg/dL High65 - 99 mg/dLOhioHealthInterpretation and review of laboratory results AbnormalOhioHealthGlucose [Mass/Vol]221 mg/bQKizu64 - 99 mg/dLOhioHealth Interpretation and review of laboratory resultsAbnormalOhioHealthGlucose [Mass/Vol]206 mg/gJIhar48 - 99 mg/dLOhioHealthInterpretation and review of laboratory resultsAbnormalOhioHealthGlucose [Mass/Vol]209 mg/cMBnqf77 - 99 mg/dL OhioHealthInterpretation and review of laboratory resultsAbnormalOhioHealthC3 COMPLEMENTon 55-23-5612Tqmicwddnb C3 [Mass/Vol]151.9 mg/dL73 - 183 mg/dL OhioHealthC4 COMPLEMENTon 79-69-0548Slokdeiqbc C4 [Mass/Vol]21.6 mg/dL16 - 47 mg/dLMeioHealthCBC WITH AUTO DIFFERENTIALon 04-42-8680Ernwlcixw (Bld) [#/Vol] 0.07 10*3/uLOhioHealthBasophils/100 WBC (Bld)0.5 %OhioHealthEosinophils (Bld) [#/Vol]0.05 10*3/uLOhioHealthEosinophils/100 WBC (Bld)0.3 %[facility] HospitalErythrocyte distribution width (RBC) [Entitic vol]15.4 %High11.6 - 14.8 %[facility] Hematocrit (Bld) [Volume fraction]34.1 %Low41 - 53 %[facility] HospitalHemoglobin (Bld) [Mass/Vol]10.8 g/dLLow13.5 - 17.5 g/dLGeorgiaHealthImmature granulocytes (Bld) [#/Vol]0.14 10*3/uLOhioHealthImmature granulocytes/100 WBC (Bld)0.90 %[facility] Comment on above:The IG parameter is [...] 10*6/uLLowOhioHealthWBC (Bld) [#/Vol] 15.27 10*3/uLHighOhioHealthCT COMPARISON IMPORTon 35-27-5471Fdue order has been auto-finalized and does not contain a result.[facility] HospitalHemoglobin A1con 50-27-8816Wvkzapv glucose Estimated from glycated hemoglobin mass conc (Bld)189 mg/vULeea27 - 114 mg/yKZuubKrqiqmBgK9z (Bld) [Mass fraction]8.2 %High4 - 5.6 % OhioHealthInterpretation and review of laboratory resultsAbnormalOhioHealth Normal: 4.0% - 5.6% Increased risk for diabetes: 5.7% - 6.4% Diabetes: >= 6.5% Pediatrics: No established reference range Estimated average glucose: 68-114 mg/dLOhioHealthLactic Acid, Plasmaon 14-56-6246Knhclnnaznulqm and review of laboratory resultsAbnormalOhioHealthLactate [Moles/Vol]2.3 mmol/LHigh0.6 - 2 mmol/LOhioHealthMR Foot Left With And Without Contraston 67-57-9510Unrayvvam, Rad In Jessie Lazoq - 11/06/2020 9:29 [...] forefoot muscles presumably related to chronic diabetic neuropathy.[facility]1. Abnormal appearance of the midfoot particularly at [...] 388RRAOhioHealthMR Foot Right With And Without Contraston 09-48-2328Repldceda, Rad In [facility] Speechq - 11/06/2020 9:00 PM EST [...] dome osteochondral lesion is seen. There is iqug-rk-kvezhysf mid and hindfoot osteoarthritis with scattered marginal [...] 3. No MR signs of osteomyelitis. 4. Etgd-gm-vrmkbyfm mid/hindfoot osteoarthritis. 5. Remote sprains of the ATFL and deep fibers of the deltoid ligament, as above. [employer] Workstation ID: [id number]: MR FOOT RIGHT WITH [...] dome osteochondral lesion is seen. There is etpt-io-lckuuhnz mid and hindfoot osteoarthritis with scattered marginal [...] 3. No MR signs of osteomyelitis. 4. Wboi-ne-bmobiqss mid/hindfoot osteoarthritis. 5. Remote sprains of the ATFL and deep fibers of the deltoid ligament, as above. [employer] Workstation ID: [id number] 34-42-3111Whfdrrcud [Mass/Vol]1.9 mg/dL1.6 - 2.4 mg/dLOhioHealthOtheron 20-29-4231Bszuizuqgmgvpj and review of laboratory resultsNormalOhioHealthEXAMINATION: XR FOOT [...] LEFT: BONES: No acute fracture or dislocation. Zdns-ah-thgafjfx degenerative changes throughout the foot. Severe degenerativechanges the 1st metatarsophalangeal joint with bony remodeling, bhkw-yo-awnw articulation and marginal osteophyte formation. Enthesopathic spurring of the calcaneus. SOFT TISSUES: Moderate soft tissue swelling EFFUSION: None visible. OTHER: Negative.[facility] plain film evidence of osteomyelitis in the right or left foot Workstation ID: [id number], Rad In [facility] - 11/06/2020 10:30 AM EST EXAMINATION: [...] LEFT: BONES: No acute fracture or dislocation. Npxk-nu-kgzhxiym degenerative changes throughout the foot.Severe degenerative changes the 1st metatarsophalangeal joint with bony remodeling, eykn-xj-zjrw articulation and marginal osteophyte formation. Enthesopathic spurring of the calcaneus. SOFT TISSUES: Moderate soft tissue swelling EFFUSION: None visible. OTHER: Negative. IMPRESSION: No definite plain film evidence of osteomyelitis in the right or left foot Workstation ID: [id number] and review of laboratory results NormalOhioHealthPOC Glucoseon 66-64-2877Jctexcf [Mass/Vol]327 mg/iEGsdm48 - 99 mg/dLOhioHealthInterpretation and review of laboratory resultsAbnormalOhioHealth Glucose [Mass/Vol]301 mg/xUGbrz52 - 99 mg/dLOhioHealthInterpretation and review of laboratory resultsAbnormalOhioHealthGlucose [Mass/Vol]272 mg/wCWjzv84 - 99 mg/dLOhioHealthInterpretation and review of laboratory resultsAbnormalOhioHealth Glucose [Mass/Vol]346 mg/pRXain42 - 99 mg/dLOhioHealthInterpretation and review of laboratory resultsAbnormalOhioHealthGlucose [Mass/Vol]303 mg/dLGxyy65 - 99 mg/dLOhioHealthInterpretation and review of laboratory resultsAbnormalOhioHealth Procalcitoninon 11-50-5552Opxblykhrwayah and review of laboratory results AbnormalOhioHealthProcalcitonin [Mass/Vol]3.85 ng/mLHigh<0.50OhioHealthResults >2.00 ng/ml represent a high risk of severe sepsis and/or septic shock. OhioHealthProtein / Creatinine Ratio, Urineon 52-18-8413Xdewsnzmfk (U) [Mass/Vol]36.6 mg/dLOhioHealthInterpretation and review of laboratory results AbnormalOhioHealthProtein (U) [Mass/Vol]61.1 mg/dLOhioHealthProtein/Creatinine (U) [Ratio]1.7HighOhioHealthReflex Lactic Acid, Plasmaon 11-06-2020 Interpretation and review of laboratory resultsAbnormalOhioHealthLactate [Moles/Vol]2.1 mmol/LHigh0.6 - 2 mmol/LOhioHealthRenal Function Panelon 45-00-3133Rarbcml [Mass/Vol]1.5 g/dLLow3.2 - 5.2 g/dLOhioHealthAnion gap [Moles/Vol]13 mmol/L10 - 20 mmol/LOhioHealthCalcium [Mass/Vol]7.7 mg/dLLow8.4 - 10.2 mg/dLOhioHealthChloride [Moles/Vol]104 mmol/L98 - 108 mmol/LOhioHealth Creatinine [Mass/Vol]1.54 mg/dLHigh0.50 - 1.30OhioHealthGFR/1.73 sq M predicted among non-blacks MDRD (S/P/Bld) [Vol rate/Area]The eGFR should be used for monitoring renal function only and not for medication dosing.OhioHealthGFR/1.73 sq M.predicted CKD-EPI (S/P/Bld) [Vol rate/Area]51Low>=60 mL/min/1.73 m2 OhioHealthGlucose [Mass/Vol]281 mg/zEVbmv50 - 99 mg/dLOhioHealthHCO3 [Moles/Vol] 19 mmol/LLow21 - 32 mmol/LOhioHealthInterpretation and review of laboratory resultsAbnormalOhioHealthPhosphate [Mass/Vol]2.2 mg/dLLow2.7 - 4.5 mg/dL OhioHealthPotassium [Moles/Vol]3.8 mmol/L3.5 - 5.1 mmol/LOhioHealthSodium [Moles/Vol]132 mmol/PCen585 - 145 mmol/LOhioHealthUrea nitrogen [Mass/Vol]36 mg/dLHigh8 - 25 mg/dLOhioHealthUrea nitrogen/Creatinine [Mass ratio]23.4 mg/mg HighOhioHealthTSHon 60-54-3963VGG Qn0.80 m[IU]/LOhioHealthURINALYSISon 61-34-7493Nqapdoku Auto Ql (U)RareAbnormalNone Seen /hpfOhioHealthBilirubin Ql (U)NegativeNegativeOhioHealthClarity [...] are present they are quantified by microscopic examination.[facility] HospitalXR COMPARISON IMPORTon 47-87-3468Nsee order has been auto-finalized and does not contain a result.[facility] HospitalXR FOOT LEFT 3+ VIEWS (STANDARD)on 36-40-6726FR FOOT LEFT 3+ VIEWS (STANDARD)EXAMINATION: XR FOOT [...] LEFT: BONES: No acute fracture or dislocation. Pvpm-kg-jguiwbgh degenerative changes throughout the foot. Severe degenerative changes the 1st metatarsophalangeal joint with bony remodeling, ncoc-rd-cqvq articulation and marginal osteophyte formation. 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 Uywe-jp-bewfkfwc degenerative changes throughout the foot. Severe degenerative changes the 1st metatarsophalangeal joint with bony remodeling, lkys-eo-aoau articulation and marginal osteophyte formation. Enthesopathic spurring [...] LA on WedNov 06, 2020 10:27:44 AM [facility] on above:Order Comment: Injury/Trauma or Illness?:Illness/Other How long have you had these symptoms (acute/chronic)?:Acute Reason for exam?:Secondary DM with DKA (HCC) History of cancer?: Surgeries, chemotherapy, or radiation?: Type of Exam?:Initial Additional signs and symptoms?:Secondary DM with DKA (HCC), no known injury Beta-Hydroxybutyrateon 15-51-9912Ynvm hydroxybutyrate [Moles/Vol]1.4 mmol/LHigh0 - 0.3 mmol/LOhioHealthInterpretation and review of laboratory resultsAbnormal [facility] WITH AUTO DIFFERENTIALon 74-82-8936Jagkirdkx (Bld) [#/Vol]0.07 10*3/uLOhioHealthBasophils/100 WBC (Bld)0.4 %[facility]HealthEosinophils (Bld) [#/Vol] 0.01 10*3/uLOhioHealthEosinophils/100 WBC (Bld)0.1 %[facility] HospitalErythrocyte distribution width (RBC) [Entitic vol]15.2 %High11.6 - 14.8 %[facility] Hematocrit (Bld) [Volume fraction]37.7 %Low41 - 53 %[facility] HospitalHemoglobin (Bld) [Mass/Vol]11.9 g/dLLow13.5 - 17.5 g/dLOhioHealthImmature granulocytes (Bld) [#/Vol]0.10 10*3/uLOhioHealthImmature granulocytes/100 WBC (Bld)0.60 %[facility] Comment on above:The IG parameter is the percentage of metamyelocytes, myelocytes and promyelocytes. An immature granulocyte count (IG) of 1% or more suggests the possibility of infection, an IG count of 3% is very likely related to an infection.Interpretation and review of laboratory resultsAbnormal OhioHealthLymphocytes (Bld) [#/Vol]0.60 10*3/uLLowOhioHealthLymphocytes/100 WBC (Bld)3.8 %[facility] HospitalMCH (RBC) [Entitic mass]26.3 pg26 - 34 pgOhioHealthMCHC (RBC) [Mass/Vol]31.6 g/dL31 - 37 g/dLOhioHealthMCV (RBC) [Entitic vol]83.4 fL80 - 100 fLOhioHealthMonocytes (Bld) [#/Vol]1.71 10*3/uLHighOhioHealthMonocytes/100 WBC (Bld)10.8 %OhioHealthNeutrophils (Bld) [#/Vol]13.36 10*3/uLHighOhioHealth Neutrophils/100 WBC (Bld)84.3 %OhioHealthNucleated RBC (Bld) [#/Vol]0.00 10*3/uL OhioHealthNucleated RBC/100 WBC (Bld) [Ratio]0.0 %[facility] HospitalPlatelet mean volume (Bld) [Entitic vol]11.0 fL9.4 - 12.4 fLOhioHealthPlatelets (Bld) [#/Vol]274 10*3/uLOhioHealthRBC (Bld) [#/Vol]4.52 10*6/uLOhioHealthWBC (Bld) [#/Vol]15.85 10*3/uLHighOhioHealthCPK NO MBon 83-51-1220KM [Catalytic activity/Vol]98 U/L60 - 225 U/LOhioHealthInterpretation and review of laboratory resultsNormalOhioHealth CRP, Inflammationon 04-53-8698MMG [Mass/Vol]468.0 mg/LHigh<=10.0OhioHealth Comprehensive Metabolic Panelon 42-88-1132Jjbajth [Mass/Vol]1.8 g/dLLow3.2 - 5.2 g/dLOhioHealthALP [Catalytic activity/Vol]95 [...] sq M.predicted CKD-EPI (S/P/Bld) [Vol rate/Area]41Low>=60 mL/min/1.73 o9NuuaIwxdosPnoxphb [Mass/Vol]309 mg/bSQyix07 - 99 mg/dLOhioHealth HCO3 [Moles/Vol]22 mmol/L21 - 32 mmol/LOhioHealthPotassium [Moles/Vol]3.3 mmol/L Low3.5 - 5.1 mmol/LOhioHealthProtein [Mass/Vol]8.1 g/dLHigh6 - 8 g/dLOhioHealth Sodium [Moles/Vol]130 mmol/QOpg510 - 145 mmol/LOhioHealthUrea nitrogen [Mass/Vol]42 mg/dLHigh8 - 25 mg/dLOhioHealthUrea nitrogen/Creatinine [Mass ratio]23.1 mg/mgHighOhioHealthLactic Acid, Plasmaon 70-32-2038Tvjctdwczujlez and review of laboratory resultsAbnormalOhioHealthLactate [Moles/Vol]3.1 mmol/LHigh 0.6 - 2 mmol/LOhioHealthMR FOOT LEFT WITH AND WITHOUT CONTRASTon 60-00-1903EX FOOT LEFT WITH AND WITHOUT CONTRASTEXAMINATION: MR [...] OLIVERA on WedNov 06, 2020 9:27:00 PM [facility] HospitalComment on above:Order Comment: Injury/Trauma or Illness?:Illness/Other How long have you had these symptoms (acute/chronic)?:Acute Reason for exam?:Non healing wounds lateral / dorsal aspect x 7 days Type of Exam?:Initial Additional signs and symptoms?:naMR FOOT RIGHT WITH AND WITHOUT CONTRASTon 38-10-7429GZ FOOT RIGHT WITH AND WITHOUT CONTRASTEXAMINATION: MR [...] dome osteochondral lesion is seen. There is yscd-rq-tybnqucn mid and hindfoot osteoarthritis with scattered marginal [...] 3. No MR signs of osteomyelitis. 4. Zbkq-xl-mcocoksc mid/hindfoot osteoarthritis. 5. Remote sprains of the ATFL and deep fibers of the deltoid ligament, as above. [employer] Workstation ID: [id number] Dictated by: CHAN OLIVERA on WedNov 06, 2020 8:37:02 PM EST Transcribed by: DEBRA BOLIVAR on WedNov 06, 2020 8:49:17 PM EST Finalized by: CHAN OLIVERA on WedNov 06, 2020 8:58:02 PM [facility] HospitalComment on above:Order Comment: Injury/Trauma or Illness?:Illness/Other How long have you had these symptoms (acute/chronic)?:Acute Reason for exam?:non healing wound on top of foot History of cancer?: Surgeries, chemotherapy, or radiation?: Type of Exam?:Initial Additional signs and symptoms?:painMagnesiumon 31-54-6585Tniinmpfeuizek and review of laboratory resultsNormalOhioHealthMagnesium [Mass/Vol]2.0 mg/dL1.6 - 2.4 mg/dLOhioHealthOtheron 66-88-5713Vzawyrokbafgcb and review of laboratory resultsAbnormalOhioHealthPhosphoruson 48-43-5098Pprlybcpm [Mass/Vol]1.6 mg/dLLow 2.7 - 4.5 mg/dLOhioHealthSedimentation Rateon 10-60-5581PWF (Bld) [Velocity]110 mm/hHighOhioHealthInterpretation and review of laboratory resultsAbnormal OhioHealthTROPONINon 21-56-0610Kfcfhgzr I.cardiac [Mass/Vol]ng/mL<=45 ng/L OhioHealthTroponin I.cardiac [Mass/Vol]No biomarker evidence of cardiac injury. OhioHealthTroponin I.cardiac [Mass/Vol]ng/mL<=45 ng/LOhioHealthTroponin I.cardiac [Mass/Vol]NormalOhioHealthXR CHEST PA/APon 31-72-1141ID CHEST PA/AP EXAMINATION: XR CHEST PA/AP 11/05/2020 [...] WedNov 05, 2020 8:04:45 PM [facility]ment on above:Order Comment: Injury/Trauma or Illness?:Illness/Other How long have you had these symptoms (acute/chronic)?:Acute Reason for exam?:SOB History of cancer?: Surgeries, chemotherapy, or radiation?: Type of Exam?:Initial Additional signs and symptoms?:nXR Chest 1 Viewon 21-91-8429Ifvyymgsn, Rad In [employer] Speechq - 11/05/2020 8:07 [...] effusion or pneumothorax. No acute osseous abnormality. [facility] with right basilar opacity, could be atelectasis or pneumonia Workstation ID: [id number] A1Con 70-19-0012Iunkjunhmw A1c/Hemoglobin.total mass fraction (Bld)7.6 %High4.0-6.0[facility] West CampusComment on above:Performed By: #### [id number] #### [facility] [address] [place] [address], [facility]INGLEY HOSPITALHemoglobin A1c/Hemoglobin.total mass fraction (Bld)171 mg/tWRnod81-541Ima [facility] CampusComment on above:Performed By: #### [id number] #### [facility] [address] [place] [address], [place] Vital Signs Date TimeVital SignValuePerforming LnbbiqbfaBvunqoyv63-98-2735 08:28-0400Body mass index (BMI) [Ratio]38.62 kg/g7AbwhiraArt Freeman DO Work Phone: [facility] Evolita [phone] 08:28-0400Body mbwsefzuzmk09.7 [degF]Art Freeamn DO Work Phone: [facility] Ev[place]ita Gujeky01-05-0803 08:28-0400Body afzhcz120.94 kgArt Freeman DO Work Phone: [facility] [place] Jpsvtx39-99-6717 08:28-0400Diastolic blood vniiacbm69 mm[Hg]Art Freeman DO Work Phone: [phone] [place]ita Mhxibl45-64-1786 08:28-0400Heart rate 92 /minMicfelicia Freeman DO Work Phone: [facility]10-31-2025 08:28-9531TpC7% (BldA) [Mass fraction]96 %Art Freeman DO Work Phone: [facility] [place] Ruepdd14-59-1272 08:28-0400Systolic blood mm[Hg]Art Freeman DO Work Phone: [facility]10-22-2025 10:45-0400Body aspsedukowp73.2 [degF]Cheng Staples [employer] Work Phone: [facility]10-22-2025 10:45-0400 Diastolic blood ggpfnaai89 mm[Hg]Cheng Staples [employer] Work Phone: [facility]10-22-2025 10:45-0400 Heart rate88 /minLisa Aichholz [employer] Work Phone: [facility]10-22-2025 10:45-0400 Respiratory rate16 /minLisa Aichholz [employer] Work Phone: [facility]10-22-2025 10:45-0400 SaO2% (BldA) [Mass fraction]98 %Cheng Staples [employer] Work Phone: [facility]10-22-2025 10:45-0400 Systolic blood mpwpfuiq246 mm[Hg]Cheng Staples [employer] Work Phone: [facility]09-22-2025 08:17-0400 Body mass index (BMI) [Ratio]37.31 kg/m2Pm[address]09-22-2025 08:17-0400Body ehksis432.[address]09-22-2025 08:17-0400 Diastolic blood vwepldnf79 mm[Hg][address]09-22-2025 08:17-0400Heart rate94 /min[address]09-22-2025 08:17-0400 Systolic blood jukvciqy754 mm[Hg][address]09-19-2025 10:17-0400Body mass index (BMI) [Ratio]37.46 kg/f6Gcoiibj Badik DO Work Phone: [facility]09-19-2025 10:17-0400Body ajlmnincdio89.59 [degF]Art Freeman DO Work Phone: [facility]09-19-2025 10:17-0400Body dveevg953.4 kgMicfelicia Freeman DO Work Phone: [facility]09-19-2025 10:17-0400Diastolic blood kpjviwrx95 mm[Hg]Art Freeman DO Work Phone: [facility]09-19-2025 10:17-0400Heart rate 82 /minMicfelicia Freeman DO Work Phone: [facility] [place] Dzqafl78-37-4200 10:17-7584WcN5% (BldA) [Mass fraction]96 %Art Freeman DO Work Phone: [facility]09-19-2025 10:17-0400Systolic blood mm[Hg]Art Freeman DO Work Phone: [facility]08-25-2025 13:30-0400Body mass index (BMI) [Ratio]37.59 kg/m2Pmh [address] [place], [place] 6641908-25-2025 13:30-0400 Body sktopd608.[address] [place], [place] 664[address]08-18-2025 12:22-0400Diastolic blood lelznwix67 mm[Hg]Cheng Aichholz Work Phone: [facility]08-18-2025 12:22-0400 Heart rate78 /minLisa Aichholz Work Phone: [facility]08-18-2025 12:22-0400 Respiratory rate16 /minLisa Aichholz Work Phone: [phone])116-[facility]-18-2025 12:22-0400 SaO2% (BldA) [Mass fraction]95 %Cheng Aichholz Work Phone: [facility]08-18-2025 12:22-0400 Systolic blood bdpvotcu575 mm[Hg]Cheng Aichholz Work Phone: [phone])011-[facility]08-18-2025 10:40-0400 Inhaled oxygen flow rate2 L/minLisa Aichholz Work Phone: [facility]08-18-2025 08:31-0400 Body fducji848.8 cmLisa Aichholz Work Phone: [facility]08-18-2025 08:31-0400 Body .02 kgLisa Aichholz Work Phone: [facility]08-14-2025 09:26-0400 Body mass index (BMI) [Ratio]37.54 kg/e0Inzppfrfelicia Freeman DO Work Phone: [facility]08-14-2025 09:26-0400Body jwqlsyvcdsa73.1 [degF]Art Freeman DO Work Phone: [facility]08-14-2025 09:26-0400Body .67 kgMichaedaryn Badik DO Work Phone: [facility]08-14-2025 09:26-0400Diastolic blood bkyarecv22 mm[Hg]Art Freeman DO Work Phone: [facility]08-14-2025 09:26-0400Heart rate 90 /minMicfelicia Freeman DO Work Phone: [facility]08-14-2025 09:26-4659UlQ9% (BldA) [Mass fraction]95 %Art Freeman DO Work Phone: [facility]08-14-2025 09:26-0400Systolic blood ybsbdssu914 mm[Hg]Art Freeman DO Work Phone: [facility]08-07-2025 10:48-0400Body uxcvtf141.8 cmLisa Aichholz Work Phone: [facility]08-07-2025 10:48-0400 Body mass index (BMI) [Ratio]38.2 kg/m2Lisa Aichholz Work Phone: [facility]08-07-2025 10:48-0400 Body iueorrwgqsg89.2 [degF]Cheng Aichholz Work Phone: [facility]08-07-2025 10:48-0400 Body dequgz142.1 kgLisa Aichholz Work Phone: [facility]08-07-2025 10:48-0400 Diastolic blood yaqekebp42 mm[Hg]Cheng Aichholz Work Phone: [facility]08-07-2025 10:48-0400 Heart rate68 /minLisa Aichholz Work Phone: [facility]08-07-2025 10:48-0400 Respiratory rate16 /minLisa Aichholz Work Phone: [facility]08-07-2025 10:48-0400 SaO2% (BldA) [Mass fraction]98 %Cheng Staples Work Phone: [facility]08-07-2025 10:48-0400 Systolic blood yqwrxpur302 mm[Hg]Cheng Staples Work Phone: [facility]06-19-2025 09:29-0400 Body mass index (BMI) [Ratio]38.11 kg/v6Kardsxcfelicia Freeman DO Work Phone: [facility] [place] Iiqqsw55-41-1577 09:29-0400Body odebdkrraqz86.81 [degF]Art Freeman DO Work Phone: [facility] [place] Mxcucd25-68-8825 09:29-0400Body hevpkj952.39 kgMicfelicia Freeman DO Work Phone: [facility] [place] Nmlwoc36-43-1832 09:29-0400Diastolic blood mzgnxzao30 mm[Hg]Art Freeman DO Work Phone: [facility] [place] Zzwxhh59-18-3876 09:29-0400Heart rate 90 /minMicfelicia Freeman DO Work Phone: [facility] [place] Qtamky59-90-0318 09:29-4566JcG5% (BldA) [Mass fraction]95 %Art Freeman DO Work Phone: [facility] [place] Qshcrf64-14-7572 09:29-0400Systolic blood qfhifecd808 mm[Hg]Art Freeman DO Work Phone: [facility] [place] Zvrgkx87-26-0868 14:12-0400Body uiuicg560 cmMicfelicia Freeman DO Work Phone: [facility]06-05-2025 14:12-0400Body mass index (BMI) [Ratio]38.05 kg/n6BlfdqhtArt Freeman DO Work Phone: [facility]06-05-2025 14:12-0400Body .1 [degF]Art Freeman DO Work Phone: [facility]06-05-2025 14:12-0400Body zgvset113.21 kgArt Freeman DO Work Phone: [facility]06-05-2025 14:12-0400Diastolic blood lowalttb87 mm[Hg]Art Freeman DO Work Phone: [facility]06-05-2025 14:12-0400Heart rate 95 /minMicfelicia Freeman DO Work Phone: [facility]06-05-2025 14:12-6219TtT7% (BldA) [Mass fraction]96 %Art Freeman DO Work Phone: [facility]06-05-2025 14:12-0400Systolic blood qyehviyt234 mm[Hg]Art Freeman DO Work Phone: [facility]06-03-2025 09:00-0400Body cfwkjbyyufg68.7 [degF]Sherri Garcia 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-IN STORE MARKETING REPRESENTATIVE Work Phone: [facility]06-03-2025 09:00-0400Diastolic blood cymesqrs72 mm[Hg]Sherri Garcia 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-IN STORE MARKETING REPRESENTATIVE Work Phone: [facility]06-03-2025 09:00-0400Heart rate 97 /minSherri Kaitlynn BURNS-IN STORE MARKETING REPRESENTATIVE Work Phone: [facility]06-03-2025 09:00-0400 Respiratory rate16 /minSherri Kaitlynn 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-IN STORE MARKETING REPRESENTATIVE Work Phone: [facility]06-03-2025 09:00-0400Systolic blood vuarhyee397 mm[Hg]Sherri Garcia GRANT-IN STORE MARKETING REPRESENTATIVE Work Phone: [facility]05-21-2025 10:36-0400Body .5 [degF]Sherri Garcia 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-IN STORE MARKETING REPRESENTATIVE Work Phone: [facility]05-21-2025 10:36-0400Diastolic blood dfkuiaqo77 mm[Hg]Sherri Garcia 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-IN STORE MARKETING REPRESENTATIVE Work Phone: [phone]05-21-2025 10:36-0400Heart rate 100 /minSherri Garcia 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-IN STORE MARKETING REPRESENTATIVE Work Phone: [phone]05-21-2025 10:36-0400 Respiratory rate16 /minSherri Garcia 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-IN STORE MARKETING REPRESENTATIVE Work Phone: [phone] [place], [place] [address]60805-21-2025 10:36-0400Systolic blood mm[Hg]Sherri Garcia 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-IN STORE MARKETING REPRESENTATIVE Work Phone: [phone]05-07-2025 10:56-0400Body wmqeroikkrf32.7 [degF]Sherri Garcia 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-IN STORE MARKETING REPRESENTATIVE Work Phone: [phone]05-07-2025 10:56-0400Diastolic blood mm[Hg]Sherri Garcia 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-IN STORE MARKETING REPRESENTATIVE Work Phone: [phone]05-07-2025 10:56-0400Heart rate 94 /minSherri Garcia 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-IN STORE MARKETING REPRESENTATIVE Work Phone: [phone]05-07-2025 10:56-0400 Respiratory rate16 /Montserrat Garcia 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-IN STORE MARKETING REPRESENTATIVE Work Phone: [phone]05-07-2025 10:56-0400Systolic blood xksjyrbu819 mm[Hg]Sherri Garcia 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-IN STORE MARKETING REPRESENTATIVE Work Phone: [phone]12-03-2024 08:45-0500Body .8 Randall Price MD Work Phone: [facility]12-03-2024 08:45-0500Body mass index (BMI) [Ratio]36.73 kg/f7AyinmzeDavida Price MD Work Phone: [facility]12-03-2024 08:45-0500Body temperature 98.29 [degF]Davida Price MD Work Phone: [facility]12-03-2024 08:45-0500Body zryqte825.12 kgDavida Price MD Work Phone: [facility]12-03-2024 08:45-0500Diastolic blood lrqdwzza36 mm[Hg]Davida Price MD Work Phone: [facility]12-03-2024 08:45-0500Heart ylin422 /minDavida Price MD Work Phone: [facility]12-03-2024 08:45-6982QeJ5% (BldA) [Mass fraction]96 %Davida Price MD Work Phone: [facility]12-03-2024 08:45-0500Systolic blood okyuvlya551 mm[Hg]Davida Price MD Work Phone: [facility]06-18-2024 14:19-0400Body .8 cmLisa Aichholz Work Phone: [facility]06-18-2024 14:19-0400 Body mass index (BMI) [Ratio]38.4 kg/m2Lisa Aichholz Work Phone: [facility]06-18-2024 14:19-0400 Body lckcib368.56 kgLisa Aichholz Work Phone: [facility]03-14-2024 14:52-0400 Diastolic blood cohduzyf81 mm[Hg]Cheng Aichholz Work Phone: [facility]03-14-2024 14:52-0400 Heart rate88 /minLisa Aichholz Work Phone: [facility]03-14-2024 14:52-0400 Respiratory rate16 /minLisa Aichholz Work Phone: [facility]03-14-2024 14:52-0400 SaO2% (BldA) [Mass fraction]98 %Cheng Aichholz Work Phone: [phone])640-[facility]03-14-2024 14:52-0400 Systolic blood yighsngc162 mm[Hg]Cheng Aichholz Work Phone: [phone]03-14-2024 12:58-0400 Body rcopps842.8 cmLisa Aichholz Work Phone: [phone]03-14-2024 12:58-0400 Body pfvupg219.02 kgLisa Aichholz Work Phone: [phone])[address]02-16-2024 11:03-0500 Body gbxoaw807.02 kgLisa Aichholz Work Phone: [phone]02-16-2024 11:03-0500 Diastolic blood fynblkvo50 mm[Hg]Cheng Aichholz Work Phone: [phone]02-16-2024 11:03-0500 Heart rate95 /minLisa Aichholz Work Phone: [phone])603-[address] [place], [place] [address]2002-16-2024 11:03-0500 Systolic blood xzuwhcry095 mm[Hg]Cheng Aichholz Work Phone: [facility]12-18-2023 15:00-0500 Body tomsjq067.8 cmTondra Mapus Other [facility]12-18-2023 15:00-0500 Body mass index (BMI) [Ratio]36.94 kg/b1Vhljro Mapus Other [employer] Other 12-18-2023 15:00-0500Body igjvbb480.8 kgTondra Mapus Other [facility]12-18-2023 15:00-0500 Diastolic blood cqkbbulh57 mm[Hg]Tondra Mapus Other [facility]12-18-2023 15:00-0500 Respiratory rate18 /minTondra Mapus Other [facility] [employer] Other 12-18-2023 15:00-7944XfM5% (BldA) [Mass fraction]95 % Tondra Mapus Other [facility] [employer] Other 12-18-2023 15:00-0500Systolic blood kffoplaw745 mm[Hg] Tondra Mapus Other [facility]10-04-2023 10:00-0400 Body fukaog806.8 cmRjannet Scovanner Other [employer] Other 10-04-2023 10:00-0400Body mass index (BMI) [Ratio] 35.97 kg/m2Ryan Scovanner Other [employer] Other 10-04-2023 10:00-0400Body wroxhi470.72 kgRyan Scovanner Other [employer] Other 10-04-2023 10:00-0400Diastolic blood mm[Hg] Maxi Scovanner Other [employer] Other 10-04-2023 10:00-0400Systolic blood hcywdihh571 mm[Hg] Maxi Scovanner Other [employer] Other 04-04-2023 11:00-0400Body zrstos781.8 cmCamerpierre Fernandez Other [employer] Other 04-04-2023 11:00-0400Body mass index (BMI) [Ratio] 34.43 kg/e7Yjsfhxv Ditty Other [employer] Other 04-04-2023 11:00-0400Body .86 kgCameron Ditty Other [employer] Other 04-04-2023 11:00-0400Diastolic blood mm[Hg] Amor Ditty Other [employer] Other 04-04-2023 11:00-0400Systolic blood rdgnuhxy327 mm[Hg] Amor Ditty Other [employer] Other 10-04-2022 11:00-0400Body islxtc766.8 cmCameron Ditty Other [employer] Other 10-04-2022 11:00-0400Body mass index (BMI) [Ratio] 34.15 kg/s9Ekeensr Ditty Other [employer] Other 10-04-2022 11:00-0400Body czspoi995.96 kgCameron Ditty Other [employer] Other 10-04-2022 11:00-0400Diastolic blood yhqnwzng49 mm[Hg] Amor Ditty Other [employer] Other 10-04-2022 11:00-0400Systolic blood jhauunxu343 mm[Hg] Amor Ditty Other [employer] Other 03-18-2021 13:44-0400Body Pxovvvicahi30.9 [degF] [facility] HospitalSzmrpWuyyMbcynu54-85-6365 13:44-0400BP Gdotdixlg47 mm[Hg][facility]03-18-2021 13:44-0400BP Vkygxubm043 mm[Hg][facility] 02-06-2021 13:44-0400Pulse (Heart Rate)129 /minW[facility]the [facility] Community HospitalFhmetOgpeGipiqn82-03-6167 13:44-0400Pulse Damjufgd50 %[facility] HospitalPrvpjJcosLcrgwe74-53-4336 13:44-0400 Respiratory Rate16 /[facility]02-18-2021 14:15-0500Body Kbfdiceccvd59.2 [degF][facility] HospitalVhosqAwfaBjblfd02-41-4942 14:15-0500BP Fuhbcczls19 mm[Hg][facility] HospitalClxqrJnbxQsyliy10-37-3537 14:15-0500BP Kysiarlu56 mm[Hg][facility] HospitalGmjepXjimKqvkdn60-58-1311 14:15-0500Pulse (Heart Rate)106 /[facility]02-18-2021 14:15-0500Pulse Pkejyomo44 %[facility] 01-09-2021 14:15-0500Respiratory Rate12 /[facility]02-05-2021 10:35-0500Body Zwuwuvteeat42.1 [degF][facility] CenterGbqkgyLcypJjkzeu31-81-9638 10:35-0500 BP Wuilhihmh50 mm[Hg][facility] CenterNdfecfBftjZczrqs69-12-9373 10:35-0500BP Bdynpzte187 mm[Hg][facility] CenterKslspdXuikLkdnek26-99-1282 10:35-0500Pulse (Heart Rate)108 /[facility] CenterQanhkdRtqnOyfzso66-38-2723 10:35-0500Pulse Hezuzjtf33 %[facility] 12-27-2020 10:35-0500Respiratory Rate18 /[facility] CenterOtjiaoGzuhYtjfvp87-89-1387 14:09-0500Body Hrpmvmtugnj75.81 [degF][facility] HospitalOolguLqvpNezlae67-68-5703 14:09-0500BP Prjdazyii06 mm[Hg][facility] HospitalTfkfrYwyxYpbvkl63-53-8864 14:09-0500BP Vfjidvom000 mm[Hg][facility] HospitalDufjwHuluIwstwm50-61-4084 14:09-0500Pulse (Heart Rate) 101 /minWythe [facility] Community HospitalHifigRliuGnciiv64-81-3748 14:09-0500Pulse Qhcdxrdv89 %[facility] HospitalFfygzTrntDrfpmp19-99-7897 14:09-0500Respiratory Rate18 /[facility]12-31-2020 11:38-0500Body Llgxzknrwol65.01 [degF][facility]12-31-2020 11:38-0500BP Ljfqurisu47 mm[Hg][facility]12-31-2020 11:38-0500BP Jdekgyug589 mm[Hg][facility]12-31-2020 11:38-0500Pulse (Heart Rate)96 /[facility]12-31-2020 11:38-0500Pulse Kruocfzo20 %[place] [address]-31-2020 11:38-0500Respiratory Rate18 /minSt. [facility]12-28-2020 11:38-0500BMI (Body Mass Index)33.21 kg/s0OkbnafoSt. Luke's University Health Network12-28-2020 11:38-0500Body enqtyo647 kgSt. Luke's [facility]12-28-2020 11:38-5271Fohcvo751.[address] [facility] Encounters Encounter DateEncounter TypeCare ProviderFacilityStart: 09-21-2025 End: 76-11-4035Qhdnsl outpatient visit 15 minutesMicfelicia Freeman DO Work Phone: [facility] MedicineComment on above: Gastroesophageal reflux disease, unspecified whether esophagitis present (Primary Dx); Type 2 diabetes mellitus with foot ulcer, with long-term current use of insulin ([facility] Benign essential HTN; Chronic midline low back pain without sciatica; Mixed hyperlipidemia due to type 2 diabetes mellitus (CMS-HCC)Start: 09-21-2025 End: 98-84-8269djkvfhmrtkSFRLFKH D [facility] Ambulatory PPGStart: 09-12-2025 End: 68-10-9193gupudziairRbeeJeovany BRITO Work Phone: [phone]-Bdfafwwzw Health Vascular SurgStart: 09-12-2025 End: 40-11-9887Sttqpkm encounter procedureChan Quintanilla MD-[facility] Vascular Surg Work Phone: Start: 08-30-2025 End: 39-10-8572Pbnewgwlx encounterCatWVUMedicine [facility] - Pharmacy Medication ManagementStart: 08-27-2025 End: 42-85-8034Tenhsuuaz encounterArt Freeman DO Work Phone: [facility] Family MedicineStart: 08-24-2025 End: 93-61-0072Izakgiipe encounterEv Marquez [facility] Family MedicineStart: 08-22-2025 End: 76-89-7281Udtrzdt encounter procedureCathy Leggett APRN-[facility] [place] Work Phone: Start: 08-22-2025 End: 94-64-7541myywtfrbvmVupyJeovany BRITO Work Phone: [facility] Work Phone: Start: 08-16-2025 End: 54-03-6745Btagfvcbx encounterEv Marquez CMAMount Ascutney HospitalMedica Physicians Family MedicineStart: 08-13-2025 End: 86-94-4846xzmtcvgjrzXPFISQW D BADIKUC [facility] HospitalComment on above: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 ([facility]) [E11.628, L84] (Primary Dx)Start: 08-10-2025 End: 24-22-1122Kdrstz outpatient visit 25 minutesMicfelicia Freeman DO Work Phone: [facility] Physicians Family MedicineComment on above: Type 2 diabetes mellitus with other circulatory complication, with long-term current use of insulin([facility]) (Primary Dx); Type 2 diabetes mellitus with foot ulcer, with long-term current use of insulin ([facility]); Benign essential HTN; Mixed hyperlipidemia due to type 2 diabetes mellitus ([facility]) ; Gastroesophageal reflux disease, unspecified whether esophagitis present; Chronic midline low back pain without sciatica; Ulcer of right foot with fat layer exposed ([facility])Start: 08-10-2025 End: 36-48-9589quovrbamfxVLEAVNE D BADAccess [facility] Ambulatory PPGStart: 07-17-2025 End: 19-62-3912yjajkpiicpSfnomuhma Pharmacy Medication Management Work Phone: [facility] - Pharmacy Medication ManagementStart: 07-17-2025 End: 22-18-3106Fcfkda-up encounterHand County Memorial Hospital / Avera Healthdaryn Freeman Work Phone: [facility] Physicians Family MedicineComment on above: Lipid panelStart: 07-16-2025 End: 93-70-7668Kjnspzuq Support[address] - Pharmacy Medication ManagementComment on above:Type 2 diabetes mellitus with other circulatory complication, with long-term current use of insulin([facility]) (Primary Dx)Start: 81-75-3916Kqc-patient / Non-visitMabashir Quintanilla MD- [facility] Vascular Surg Work Phone: Start: 07-09-2025 End: 33-10-1617Civildrqx to same day surgery centerMabashir Quintanilla MD- Interventional Radiology Work Phone: Start: 07-09-2025 End: 59-01-1953cdbqqqghbtYfxt J Aichholz Work Phone: [facility] Work Phone: Start: 07-05-2025 End: 23-84-3526Bxzxlwgyb encounterProeast [facility] Pharmacy Medication Management Work Phone: [facility] - Pharmacy Medication ManagementComment on above:Type 2 diabetes mellitus with foot ulcer, with long- term current use of insulin ([facility])Start: 07-05-2025 End: 63-45-3370Ophaosbiwpnr care manage srvc 14 day dischargeArt Freeman DO Work Phone: Pro[facility]abel[facility] Say Family MedicineComment on above: Ulcer of right foot with fat layer exposed ([facility]) (Primary Dx); Type 2 diabetes mellitus with foot ulcer, with long-term current use of insulin ([facility] Hyperlipidemia, unspecified hyperlipidemia type; Gastroesophageal reflux disease, unspecified whether esophagitis present; Peripheral artery diseaseStart: 07-05-2025 End: 69-37-5144qqsrvbgjcsXVZKXQY D [facility] Ambulatory PPGStart: 06-28-2025 End: 66-23-4859Hnstvec encounter procedureMabashir Quintanilla MD-[facility] VascularStart: 06-28-2025 End: 91-28-7839ekmyfcifavLlea J Aichholz Work Phone: [facility] Work Phone: Start: 06-28-2025 End: 07-15-2721rpmrbnxpcvUzgp J Aicjesi Work Phone: [facility] Work Phone: Start: 06-28-2025 End: 10-74-7464Fpfudxt encounter procedureCathy Ramirez APRAtrium Health Cabarrus Vascular Surg Work Phone: Start: 06-07-2025 End: 63-76-1132ivtqeuktloGKVMPVJE L [facility] Hospitaltart: 05-22-2025 End: 00-26-2750Adfshdurp encounterSstacy Deal Family MedicineComment on above:ResultsStart: 05-16-2025 End: 36-81-0727Scfiin OnlyArt Freeman DO Work Phone: [facility] MedicineComment on above: Type 2 diabetes mellitus with foot ulcer, with long-term current use of insulin ([facility]) (Primary Dx)Start: 05-13-2025 End: 87-74-6685MqypwgTgkqmgo D Badik DO Work Phone: [facility] Physicians Family MedicineComment on above: Type 2 diabetes mellitus with foot ulcer, with long-term current use of insulin ([facility])Start: 05-10-2025 End: 06-72-1081Ufzzis outpatient visit 25 minutesArt Freeman DO Work Phone: [facility] Physicians Family MedicineComment on above: Type 2 diabetes mellitus with foot ulcer, with long-term current use of insulin ([facility]); Benign essential HTN; Gastroesophageal reflux disease, unspecified whether esophagitis present; Chronic midline low back pain without sciatica; Encounter for screening for malignant neoplasm of prostate; Fatigue, unspecified typeStart: 05-10-2025 End: 98-61-0101qqysrwjwndFPBHQDICity Emergency Hospital Ambulatory PPGStart: 05-02-2025 End: 18-30-4165rznapvxmkjDKMUANBLincoln Hospital HospitalStart: 04-26-2025 End: 15-15-9383Xeyldu outpatient new 45 minutesArt Freeman DO Work Phone: [facility] Physicians Family MedicineComment on above: Benign essential HTN (Primary Dx); Type 2 diabetes mellitus with foot ulcer, with long-term current use of insulin ([facility]); Chronic midline low back pain without sciatica; Fatty liver disease, nonalcoholic; Visit for wound check; Hyperglycemia; Gastroesophageal reflux disease, unspecified whether esophagitis presentStart: 04-26-2025 End: 74-89-9481jhfqjiyzkpJGPXNFBCity Emergency Hospital Ambulatory PPGStart: 04-24-2025 End: 78-59-5964jyrezqwrmnHDFZ P [facility] HospitalStart: 04-24-2025 End: 81-93-7956Ecawlcg encounter procedureSherri Garcia 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-IN STORE MARKETING REPRESENTATIVE Work Phone: [facility] - Wound Care ClinicComment on above:Diabetic ulcer of right midfoot associated with type 2 diabetes mellitus, with muscle involvement without evidence of necrosis ([facility]) (Primary Dx); 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 ([facility]-HCC)Start: 04-20-2025 End: 12-99-3232uozmupwaobDhwsat D Grubic DO Work Phone: [facility] Centertart: 04-18-2025 End: 05-08-2058Vloajimvm encounterJerome Del Toro DO Work Phone: General SurgeryComment on above:Care Coordination (Appeal for GPOEM denial )Start: 04-11-2025 End: 57-67-5344Vprnasa encounter Vipul Garcia 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-IN STORE MARKETING REPRESENTATIVE Work Phone: [facility] - Wound Care ClinicComment on above:Diabetic ulcer of right midfoot associated with type 2 diabetes mellitus, with muscle involvement without evidence of necrosis (CMS- HCC) (Primary Dx); History of transmetatarsal amputation of right foot (CMS-HCC); 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); Wound, open, foot with complication, left, initial encounter; Unstable ankle, rightStart: 04-11-2025 End: 87-10-4942agrnjhrqmfRGWO P [facility] HospitalStart: 04-10-2025 End: 22-87-0543lkqbsqxlqmBGFEDWF S CLINEFacility:[facility] HospitalStart: 04-10-2025 End: 67-31-5645estwuhdtolCBNMCI D GRUBICFacility:[facility] HospitalStart: 04-05-2025 End: 53-22-9585Cavxmrtgj encounterMicfelicia S Figueredo DO Work Phone: GastroenterologyComment on above:Care Coordination (Gastroparesis clinic: chart review; new patient call )Start: 03-28-2025 End: 07-16-3165Gzrplp outpatient new 20 minutesSherri Garcia 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-IN STORE MARKETING REPRESENTATIVE Work Phone: [facility] - Wound Care ClinicComment on above:Diabetic ulcer of right midfoot associated with type 2 diabetes mellitus, with muscle involvement without evidence of necrosis (CMS- HCC) (Primary Dx); History of transmetatarsal amputation of right foot (CMS-HCC); Visit for wound checkStart: 03-28-2025 End: 71-48-4152tzejtkbqfoOIKA P [facility]YGe[facility] HospitalStart: 03-04-2025 End: 32-57-9820Flvskckan department patient visitNO PCP NO PCPProTrihealth [facility] HospitalStart: 11-21-2024 End: 33-47-1589Wfjmbxsug encounterDavida Price MD Work Phone: GastroenterologyComment on above: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 (Dr Yoon's office/request for office note)Start: 10-24-2024 End: 58-74-1648Ahqkcrg encounter procedureDavida Price MD Work Phone: GastroenterologyComment on above:Gastroparesis (Primary Dx)Start: 10-24-2024 End: 35-09-2547seatxouduaLLJHJPR LEMBOFacility:[facility] Centertart: 40-81-6975Wsxwjyvry encounterMicfelicia Figueredo DO Work Phone: GastroenterologyStart: 06-12-2024 End: 19-38-9418ydcwcjafglOjrv J Aichholz Work Phone: [facility] Work Phone: Start: 06-12-2024 End: 37-63-1690Xzhxclh encounter procedureLisa Aichholz Work Phone: [facility] [place] Work Phone: Start: 06-06-2024 End: 89-84-3709ejxzlrmvdqXblc J Aichholz Work Phone: [facility] Work Phone: Start: 06-06-2024 End: 84-54-7152Fjqlgvm encounter procedureLisa Aichholz Work Phone: [facility] [place] Work Phone: Start: 05-09-2024 End: 30-39-6868Givbsuu encounter procedureLisa Aichholz Work Phone: [facility] Gastroenterology Work Phone: Start: 03-13-2024 End: 35-36-6132tijtnnnticBDXN AICHHOLZNot AvailableStart: 33-71-3158Mmm-patient / Non-visitLisa Aichholz Work Phone: [facility] Gastroenterology Work Phone: Start: 02-03-2024 End: 75-26-6890Nqfiwwgat to same day surgery centerLisa Aichholz Work Phone: [facility] Work Phone: Start: 02-03-2024 End: 75-94-2212eqymwhyumkPqgu J Aichholz Work Phone: [facility] Work Phone: Start: 01-07-2024 End: 43-75-6745Lbwqixd encounter procedureLisa Aichholz Work Phone: [facility] Gastroenterology Work Phone: Start: 01-06-2024 End: 62-18-9268hcrqxpulebOSKI AICHHOLZNot AvailableStart: 72-52-7765Wiedrf flowsheetLisa Aichholz [employer] Work Phone: [facility] FMStart: 85-92-8736Hfamgc flowsheetLisa Aichholz [employer] Work Phone: [facility] FMStart: 11-25-2023 End: 30-93-7987jhutyeygmrInaz Scovanner Other [employer] Other Start: 37-30-1280Lwqvdo outpatient visit 15 minutes Maxi Huber GastroenterologyStart: 31-20-3856Xbryqja encounter procedure Cheng Bel Work Phone: [facility]-Start: 11-09-2023 End: 27-08-6167jnujgqnipzYhqodz Mapus Other [facility] [employer] Other Start: 61-28-7073Jekgpdxfo encounterTondra Tyrell Zazueta [facility] ClinicStart: 11-08-2023 End: 84-52-6517Xssixtnqrb RecurringLisa Calixtohholnia Work Phone: [facility] Work Phone: Start: 11-08-2023 End: 74-26-5318ineodahgwySfec J Aichjesi Work Phone: [facility] [employer] Other Start: 85-63-9610ZKIA visit new patientSebastián KruseSanford Medical Center Sheldon ClinicStart: 11-08-2023 End: 86-60-2742Xsuiqrd encounter procedureLisa Calixtohjesi Work Phone: [facility] Work Phone: Start: 11-02-2023 End: 01-90-3334yaqduuvfucDVPP CALIXTOHHOLZNot AvailableStart: 09-15-2023 End: 34-80-4973hjktdyuyycSsus Fitt Other [facility] [employer] Other Start: 21-32-1648Rxmteyhga encounterDawn [facility] ClinicStart: 09-13-2023 End: 45-19-0926rcszccfoonEplh Fitt Other noAgileMesh [employer] Other Start: 97-40-7513Blqocbyna encounterDawn [facility] Ohiotart: 08-25-2023 End: 70-92-0423vazhnqvolaVlth Scovanner Other noAgileMesh [employer] Other Start: 61-76-9642Fntvyk outpatient visit 15 minutes Maxi CroftG GastroenterologyStart: 03-18-2023 End: 91-41-0458nbonmffyxtPSLAMTCK TROTTIFacility:M8Xfkkj: 02-23-2023 End: 03-69-0529dfhujoiuowNavzjvg Ditty Other [facility] [employer] Other Start: 99-27-6635Egmmpsl encounter procedureCamamaury AdamsyERNESTOG GastroenterologyStart: 08-25-2022 End: 69-70-7901cwjlubtjdxAltrbjt Ditty Other noAg[employer]Mesh [employer] Other Start: 81-31-6960Rdbxdao encounter procedureCameroesdras CarterG GastroenterologyStart: 04-02-2021 End: 74-96-7254lwxopnvbhjJSFQUSUOGR W CHINRogerKn[facility] Start: 02-06-2021 End: 86-21-0605Wwlqsip encounter procedureUCHENNA MARTINTUS [facility] Hospitaltart: 02-06-2021 End: 74-54-1933Doyugcz encounter procedureUchjenna Bell Work Phone: [facility] Wound CareComment on above:Foot abscess, left (Primary Dx)Start: 01-29-2021 End: 54-88-1865Smsfuk OnlyTsering Silvestre Work Phone: [facility] Start: 01-24-2021 End: 01-36-5159Svnbnrp encounter procedurePrem[facility] Start: 01-24-2021 End: 10-03-8123Fklbevb encounter procedureGrant Regional Health Centerr Work Phone: [facility] Wound CareComment on above:Foot abscess, left (Primary Dx); Charcot foot due to diabetes mellitus (HCC); MSSA (methicillin susceptible Staphylococcus aureus) infectionStart: 01-24-2021 End: 17-40-3108Aeesoy outpatient visit 15 fredyStephanierachana Millicent Cherry Work Phone: [phone] [place] [address] Wound CareComment on above:Subacute osteomyelitis of left foot (HCC) (Primary Dx)Start: 01-09-2021 End: 58-12-9593Kaduttw encounter procedurePremier Health [facility] Start: 01-09-2021 End: 01-26-8590Nbcxhzrdoc hospital visit by physicianMercy Health Kings Mills Hospitalusman Burkett Work Phone: [phone] [place] [address] DiagnosticsComment on above:Arrived Start: 01-09-2021 End: 96-92-6401Uuklwr outpatient visit 25 minutesMercy Health Kings Mills Hospitalusman Dilip Work Phone: [phone] [place] [address] Wound CareComment on above: Charcot's joint of ankle, unspecified laterality (Primary Dx)Start: 01-09-2021 End: 77-25-2605Aaypcbv encounter procedureUchjenna Escobar Ezarline Work Phone: [phone] [place] [address] Wound CareComment on above:Subacute osteomyelitis of left foot (HCC) (Primary Dx)Start: 12-27-2020 End: 98-09-4022Jdorebc encounter [facility] Start: 12-27-2020 End: 78-14-5992Llxjls outpatient visit 15 [facility] Hospitalusman ReeceDilip Work Phone: [phone] [place] [address] Wound CareComment on above:Subacute osteomyelitis of left foot (HCC) (Primary Dx); Charcot's joint of ankle, unspecified lateralityStart: 12-19-2020 End: 11-40-3814Nfdcvgt encounter procedureUCHENNA MICHELLE BELLProMedica Fostoria Community Hospitaltart: 12-19-2020 End: 72-00-0522Bnjkhlb encounter procedureUchjenna Escobar Ezike Work Phone: [place] [address] Wound CareComment on above:Subacute osteomyelitis of left foot (HCC) (Primary Dx)Start: 11-20-2020 End: 87-15-9691Iiclvwmmciwwi procedureCathy J CatronOhioHealthStart: 11-20-2020 Patient encounter procedureCATHY J CATRONHomeHealthStart: 11-05-2020 End: 36-00-9871Ccqoqrcxxm and management of inpatientPROVIDER NOT IN SYSTEM [facility] Hospitaltart: 11-05-2020 End: 61-35-1556Xpryvzhiep and management of inpatientGeneric [facility] Work Phone: [facility] Surgical IntermediateComment on above:Other acute osteomyelitis of left foot (HCC) (Primary Dx); Uncontrolled type 2 diabetes mellitus with peripheral neuropathy (HCC); Secondary DM with DKA (HCC); 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, with long- term current use ofinsulin, macular edema presence unspecified, unspecified proliferative retinopathy type (HCC)Start: 12-26-2018 End: 63-37-8721Soboikc encounter procedureJOHN Y JUNFacility:[facility] Procedures DateProcedureProcedure DetailPerforming ClinicianStart: 42-07-9967Succfhygtr glycosylated i3pNqitopzArt Freeman DO Work Phone: Start: 71-23-6083Dvgsi depression screening assessment Art Freeman DO Work Phone: Start: 57-58-5530RK angiography of headLisa Ble [employer] Work Phone: Start: 53-55-5815YU angiography of neck vesselsLisa Bel [employer] Work Phone: Start: 44-32-0794Woqpq depression screening assessment Art Freeman DO Work Phone: Start: 93-23-0579XM Angiogram w/TLA/Stent Right Leg (Right)Cheng Bel Work Phone: Start: 92-38-6570Ometx depression screening assessment [facility] Work Phone: [phone]: 36-80-2520Lfsafk-up visitFollow-upMICHAEDaryn FREEMANStart: 93-78-8011Veoav depression screening assessmentArt Freeman DO Work Phone: Start: 70-70-9125Vkfjo depression screening assessment Art Freeman DO Work Phone: Start: 60-44-2030RQEBWAX COMMUNICATIONSherri Garcia APRN-IN STORE MARKETING REPRESENTATIVE Work Phone: Start: 57-05-5321Dtsfw immobilization, pressure, and attention to woundMary P Kaitlynn 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-IN STORE MARKETING REPRESENTATIVE Work Phone: Start: 33-70-0835CTAMHYU COMMUNICATIONMary P Kaitlynn 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-IN STORE MARKETING REPRESENTATIVE Work Phone: Start: 62-34-1527Overl immobilization, pressure, and attention to woundMary P Kaitlynn 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-IN STORE MARKETING REPRESENTATIVE Work Phone: Start: 93-24-7066Acxdc immobilization, pressure, and attention to woundMary P Kaitlynn 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-IN STORE MARKETING REPRESENTATIVE Work Phone: Start: 77-04-0315Swvkmmrurbyl gastric emptying study Cheng Bel Work Phone: Start: 05-15-2185Jcivhhpo tomography of abdomen and pelvis with contrastLisa Denisest. mary medical centernia Work Phone: Start: 34-11-5609Fdgxe 1996 panel - Serum or Plasma Davida Price MD Work Phone: Start: 30-34-3712Tdefagiyizky [Mass/volume] in Urine by Test stripSherri Kaitlynn CAIN-IN STORE MARKETING REPRESENTATIVE Work Phone: Start: 70-27-8683TyhnjylhreeqbyholxqhvsqywbPhsh Jeremieohiohealth pickerington methodist hospitalnia Work Phone: Start: 19-71-7633L-ray of left ankleDina Millicent Cherry Work Phone: start: 40-10-1181M-ray of left footDina Millicent Cherry Work Phone: start: 54-58-8561Gptlzwp microbial cultureDina Millicent Cherry Work Phone: start: 45-05-9447Lyrquzhh identified in Bone by Aerobe cultureDina Millicent Cherry Work Phone: start: 45-05-4125DCUTRBCjpv Millicent Cherry Work Phone: start: 35-64-6544Eopsfmw [Mass/volume] in Bloodmed Mohamed Mosalem Work Phone: Start: 43-08-5772Xazyiew [Mass/volume] in Bloodmed Mohamed Mosalem Work Phone: Start: 90-76-7713Ddywhjh [Mass/volume] in Bloodmed Mohamed Mosalem Work Phone: Start: 17-73-0983Zkpsm metabolic 2000 panel - Serum or PlasmaBaGlacier Bayat [employer] Work Phone: Start: 95-75-6870Bfmllgyn blood count (hemogram) panel - Blood by Automated countBaGlacier Bayat [employer] Work Phone: Start: 37-17-4449Gbborbdqu [Mass/volume] in Serum or PlasmaBaFundRazr Work Phone: Start: 25-01-5262Ouqnedy [Mass/volume] in Bloodmed Mohamed Mosalem Work Phone: Start: 66-98-9109Zlmorie [Mass/volume] in Bloodmed Mohamed Mosalem Work Phone: Start: 16-29-9019Jysawgh [Mass/volume] in Bloodmed Mohamed Mosalem Work Phone: Start: 96-39-0619Cmlflcl [Mass/volume] in Blood Flako Pinedo Work Phone: Start: 89-46-7680Dhttv metabolic 2000 panel - Serum or PlasmaBahzat [employer] Work Phone: Start: 11-20-2020C reactive protein [Mass/volume] in Serum or PlasmaJeremiah José Work Phone: start: 87-80-6982Blmlujro blood count (hemogram) panel - Blood by Automated countPhrazitat [employer] Work Phone: Start: 97-13-3534Wyqsfssdmdz sedimentation rate by Westergren methodJeremiah José Work Phone: start: 70-07-4054Dwpqleskk [Mass/volume] in Serum or PlasmaBahzat [employer] Work Phone: Start: 39-61-1771Jmkmusd [Mass/volume] in Blood Flako Pinedo Work Phone: Start: 95-86-2019Obdmaky [Mass/volume] in Blood Flako Pinedo Work Phone: Start: 55-72-0972Zcedmxz [Mass/volume] in Blood Flako Pinedo Work Phone: Start: 68-91-1362Zxzvedq [Mass/volume] in Blood Flako Pinedo Work Phone: Start: 32-58-4310Flruo metabolic 2000 panel - Serum or PlasmaPhrazitat [employer] Work Phone: Start: 23-33-9530Miizypkk blood count (hemogram) panel - Blood by Automated countAlegría Work Phone: Start: 96-96-4559Ozseeepln [Mass/volume] in Serum or PlasmaBahzat [employer] Work Phone: Start: 88-63-7509Hvkimoc [Mass/volume] in Blood Flako Pinedo Work Phone: Start: 83-08-7202Hjzqmqh [Mass/volume] in Blood Flako Pinedo Work Phone: Start: 44-41-6953Otiibca [Mass/volume] in Blood Flako Pinedo Work Phone: Start: 11-61-7952Dieljycwo on tissue specimenLeanne Cherry Work Phone: start: 55-69-9587Vamoftum identified in Bone by Aerobe Daniel Cherry Work Phone: [phone]-tart: 03-34-1562Yoetnchh identified in Unspecified specimen by Anaerobe Erinnadia Cherry Work Phone: [phone]-tart: 11-18-2020 End: 53-37-0454QHEKEAIF AND DRAINAGE FOOT/ANKLELeanne Cherry Work Phone: [phone]-tart: 83-41-0612Jbhrygx [Mass/volume] in Blood Flako Pinedo Work Phone: Start: 84-82-8095Lfaps metabolic 2000 panel - Serum or PlasmaBaGlacier Bayat [employer] Work Phone: Start: 11-18-2020C reactive protein [Mass/volume] in Serum or PlasmaDina Millicent Cherry Work Phone: [phone]: 92-98-8508Lwidrbvp blood count (hemogram) panel - Blood by Automated countBaFundRazr Work Phone: Start: 55-08-8861Emuwwtpcmad sedimentation rate by Westergren methodLeanne Cherry Work Phone: [phone]: 40-46-8971Yseokowjv [Mass/volume] in Serum or PlasmaBaGlacier Bayat [employer] Work Phone: Start: 23-68-0286Puiwkel [Mass/volume] in Blood Flako Pinedo Work Phone: Start: 32-20-9840mSTG in Blood by Coagulation assay Braeden Conte Work Phone: start: 26-77-8751Btefbpa [Mass/volume] in Blood Flako Pinedo Work Phone: Start: 19-69-8508Xjycesu [Mass/volume] in Blood Flako Pinedo Work Phone: Start: 96-38-9327Fjnuobt microbial cultureBraeden Conte Work Phone: start: 19-90-6067Vzmijaj [Mass/volume] in Blood Flako Pinedo Work Phone: Start: 49-32-2283Qqhpo metabolic 2000 panel - Serum or PlasmaBahzat [employer] Work Phone: Start: 96-45-1364Rjmdjpky blood count with white cell differential, automatedBraeden Conte Work Phone: start: 96-86-0091Owbrusvf blood count with white cell differential, manualBraeden Conte Work Phone: start: 69-50-3624Lwxhranny [Mass/volume] in Serum or PlasmaBahzat [employer] Work Phone: Start: 56-70-1221Anvefvo [Mass/volume] in Blood Flako Pinedo Work Phone: Start: 99-61-1056Oqbjqyn [Mass/volume] in Blood Flako Pinedo Work Phone: Start: 50-73-9889Qjrtywh [Mass/volume] in Blood Flako Pinedo Work Phone: Start: 15-29-0294Bihyhgp [Mass/volume] in Blood Flako Pinedo Work Phone: Start: 98-79-4334Vbogm metabolic 2000 panel - Serum or PlasmaBahzat [employer] Work Phone: Start: 56-27-4871Mmcddfoh blood count (hemogram) panel - Blood by Automated countBaGlacier Bayat [employer] Work Phone: Start: 10-22-0330Geqlpppawao sedimentation rate by Westergren methodBraeden Conte Work Phone: start: 94-23-9069Yhcdapuhf [Mass/volume] in Serum or PlasmaBahzat [employer] Work Phone: Start: 04-65-6260Ohilqjh [Mass/volume] in Blood Flako Pinedo Work Phone: Start: 27-97-0263O-ray of left footBrian Nam Conte Work Phone: start: 17-23-0745Ywgxidg [Mass/volume] in Blood Flako Pinedo Work Phone: Start: 37-76-5565Bnqpoin [Mass/volume] in Blood Flako Pinedo Work Phone: Start: 77-21-8483Ln abdomen & pelvis w/o contrast materialReunion Rehabilitation Hospital Phoenixat [employer] Work Phone: Start: 97-92-3608Tytpunj [Mass/volume] in Blood Flako Pinedo Work Phone: Start: 45-62-7926Qyqcq metabolic 2000 panel - Serum or PlasmaBaat [employer] Work Phone: Start: 10-94-6448Qioooxjm blood count (hemogram) panel - Blood by Automated countMobile Location, IPat [employer] Work Phone: Start: 74-23-8446Ekxruybwn [Mass/volume] in Serum or PlasmaBahzat [employer] Work Phone: Start: 93-54-4150Qfsbolg [Mass/volume] in Blood Flako Pinedo Work Phone: Start: 57-72-3398Nejrtqg [Mass/volume] in Blood Flako Pinedo Work Phone: Start: 05-63-3518Bukcony [Mass/volume] in Blood Flako Pinedo Work Phone: Start: 16-95-0731Wdzegwg [Mass/volume] in Blood Flako Pinedo Work Phone: Start: 63-08-8779Edonr metabolic 2000 panel - Serum or PlasmaBaat [employer] Work Phone: Start: 81-24-8244Jnjyfrbd blood count (hemogram) panel - Blood by Automated countAlegría Work Phone: Start: 76-08-4694Mileuobhk [Mass/volume] in Serum or PlasmaBahzat [employer] Work Phone: Start: 82-75-5394Momiskt [Mass/volume] in Blood Flako Pinedo Work Phone: Start: 10-65-9217Lnpltgl [Mass/volume] in Blood Flako Pinedo Work Phone: Start: 91-17-4716Auqlarj ultrasonography of artery of [facility] Work Phone: start: 37-17-1060Tmnebof emptying imaging studyBaohiohealth hardin memorial hospital [employer] Work Phone: Start: 76-32-2343Asycqiq [Mass/volume] in Blood Flako Pinedo Work Phone: Start: 88-37-6840Rtjwkyu [Mass/volume] in Blood Flako Pinedo Work Phone: Start: 15-19-3387Xwtps metabolic 2000 panel - Serum or PlasmaBaat [employer] Work Phone: Start: 37-28-6086Piqbqxxp blood count (hemogram) panel - Blood by Automated countAlegría Work Phone: Start: 85-60-3763Thuhwaxca [Mass/volume] in Serum or PlasmaBaat [employer] Work Phone: Start: 30-14-0571Bwcegtr [Mass/volume] in Blood Flako Pinedo Work Phone: start: 17-57-9145Tdyfupy [Mass/volume] in Blood Flako Pinedo Work Phone: Start: 07-53-3944Gnyoeel [Mass/volume] in Blood Flako Pinedo Work Phone: Start: 66-98-2567NROHX-19/INFLUENZA A,B MOLECULAR Bahzat Hugo Work Phone: Start: 91-41-4789Iutdbvu [Mass/volume] in Blood Flako Pinedo Work Phone: Start: 39-54-1552Bjwuz metabolic 2000 panel - Serum or PlasmaBaat [employer] Work Phone: Start: 95-93-0313Cicsfrwn blood count (hemogram) panel - Blood by Automated countBaohiohealth hardin memorial hospital [employer] Work Phone: Start: 23-64-5080Ctffwqoyh [Mass/volume] in Serum or PlasmaBahzat Hugo Work Phone: Start: 53-48-5030Syyzdtekd [Mass/volume] in Serum or PlasmaLisa Alicia O'Fallon Work Phone: Start: 89-98-1347Khswcuh [Mass/volume] in Blood Flako Pinedo Work Phone: Start: 51-24-8746Glhhvpd [Mass/volume] in Blood Flako Pinedo Work Phone: Start: 77-82-6276Xnargstk identified in Bone by Aerobe Daniel Cherry Work Phone: start: 74-74-1397Qfpkvsnh identified in Unspecified specimen by Anaerobe Daniel Cherry Work Phone: start: 35-85-6578Vapdjgdgt on tissue specimenDina Millicent Cherry Work Phone: start: 11-11-2020 End: 23-96-5092ZVFCBMWBKHZ WOUND VACDina Millicent Cherry Work Phone: start: 11-11-2020 End: 02-27-2135BSAVXAUUYCN AND DRESSING CHANGEDina Millicent Cherry Work Phone: start: 10-21-5257Zwnbijg [Mass/volume] in Blood Flako Pinedo Work Phone: Start: 93-89-8386Lvkdehm [Mass/volume] in Blood Flako Pinedo Work Phone: Start: 46-40-8515Gdfzf metabolic 2000 panel - Serum or PlasmaBaGlacier Bayat [employer] Work Phone: Start: 86-20-1228Oxlsfusc blood count (hemogram) panel - Blood by Automated countAlegría Work Phone: Start: 52-41-7989Jmqudsisw [Mass/volume] in Serum or PlasmaBahzat [employer] Work Phone: Start: 07-47-8594Cknqvsz [Mass/volume] in Blood Flako Pinedo Work Phone: Start: 54-60-1333Akpnsyq [Mass/volume] in Blood Flako Pinedo Work Phone: Start: 12-02-2272Kzsnpty [Mass/volume] in Blood Flako Pinedo Work Phone: Start: 29-95-4666Prhkriq [Mass/volume] in Blood Flako Pinedo Work Phone: Start: 90-94-2362Bieeh metabolic 2000 panel - Serum or PlasmaBaGlacier Bayat [employer] Work Phone: Start: 83-47-9875Sbbvkkkq blood count (hemogram) panel - Blood by Automated countPhrazitat [employer] Work Phone: Start: 11-32-1450Tgkueaglk [Mass/volume] in Serum or PlasmaBahzat [employer] Work Phone: Start: 2020 End: 90-43-4547Wtgegav [Mass/volume] in BloodFlako Pinedo Work Phone: Start: 20-71-8030Zltpjnl [Mass/volume] in Blood Flako Pinedo Work Phone: Start: 11-09-2020 End: 24-71-0577Rnxigtz [Mass/volume] in BloodFlako Pinedo Work Phone: Start: 35-07-9806Fuzmhgn [Mass/volume] in Blood Flako Pinedo Work Phone: Start: 76-29-3136Sdrldqm [Mass/volume] in Blood Flako Pinedo Work Phone: Start: 58-58-7525Axwepmy [Mass/volume] in Blood Flako Pinedo Work Phone: Start: 96-78-5647Nebod metabolic 2000 panel - Serum or PlasmaBahzat [employer] Work Phone: Start: 06-56-5476Ezhrztth blood count (hemogram) panel - Blood by Automated countPhrazitat [employer] Work Phone: Start: 69-78-8711Xsvkjkptx [Mass/volume] in Serum or PlasmaBahzat [employer] Work Phone: Start: 60-13-1729Hltdzov [Mass/volume] in Blood Flako Pinedo Work Phone: Start: 84-70-2676Teqmeef [Mass/volume] in Blood Flako Pinedo Work Phone: Start: 75-99-8897Zpjhxyp [Mass/volume] in Blood Flako Pinedo Work Phone: Start: 15-75-6785Efnbtep [Mass/volume] in Blood Flako Pinedo Work Phone: Start: 97-22-8511Drmubqv [Mass/volume] in Blood Flako Pinedo Work Phone: Start: 24-96-2043Nmlnc metabolic 2000 panel - Serum or PlasmaAlaa AlaDinomarketad Work Phone: Start: 23-14-5806Txntcxz [Mass/volume] in Blood Flako Pinedo Work Phone: Start: 95-12-7800Pkqrfkb [Mass/volume] in Blood Flako Pinedo Work Phone: Start: 94-25-1833Rviagnq microbial cultureGabriella Terrell Work Phone: Start: 31-63-3515Qhjqfuy [Mass/volume] in Blood Flako Pinedo Work Phone: Start: 23-21-7625Jaihvpim blood count with white cell differential, automatedAlaa AlaDinomarketad Work Phone: Start: 13-23-4280Zynhkrxu blood count with white cell differential, manualAlaa AlaTagboard Work Phone: Start: 12-70-3910Zsmpcksx identified in Unspecified specimen by Aerobe cultureFlako Pinedo Work Phone: Start: 10-62-9776Wmglcao [Mass/volume] in Blood Flako Pinedo Work Phone: Start: 27-59-9860Qlaegew [Mass/volume] in Blood Flako Pinedo Work Phone: Start: 77-00-5203Rrqtqpo [Mass/volume] in Blood Flako Pinedo Work Phone: Start: 85-09-0466Gfxwjqk [Mass/volume] in Blood Flako Pinedo Work Phone: Start: 11-06-2020 End: 32-10-9305Dtf lower extrem oth/thn jt w/o & w/contr matrFlako Pinedo Work Phone: Start: 51-88-5786Gpaepad [Mass/volume] in Blood Flako Pinedo Work Phone: Start: 98-80-9876Xdxcoup/Creatinine [Ratio] in Urine Flako Pinedo Work Phone: Start: 59-76-9274DrjrnutegvDjdlpndi Viral Pinedo Work Phone: Start: 22-31-7757Xwlvctv [Mass/volume] in Blood Flako Pinedo Work Phone: Start: 40-29-8644Obzxzwa microbial cultureBraeden Conte Work Phone: start: 11-06-2020 End: 84-28-7680S-ray of left footBraeden Conte Work Phone: start: 47-64-7391Waxuzxskkntj imaging procedure External TranscribedStart: 26-43-1112Uwomlonuqkcx tomography, limited studies External TranscribedStart: 32-65-5816Jtakyfy [Mass/volume] in BloodFlako Pinedo Work Phone: Start: 44-19-2496Pwlzdrsa blood count with white cell differential, automatedFlako Pinedo Work Phone: Start: 41-66-4169Uiwvwztl blood count with white cell differential, manualFlako Pinedo Work Phone: Start: 20-19-3896Iijbnxd [Moles/volume] in Serum or PlasmaFlako Pinedo Work Phone: Start: 63-60-7109Gjufqpjqd [Mass/volume] in Serum or PlasmaFlako Pinedo Work Phone: Start: 84-74-6276Tzute function 2000 panel - Serum or PlasmaFlako Pinedo Work Phone: Start: 62-10-7641Nsdewmarbvn [Units/volume] in Serum or Plasma by Detection limit <= 0.005 mIU/LKhalmarina Pinedo Work Phone: Start: 15-18-0530Rjwmt of lactateFlako Pinedo Work Phone: Start: 11-05-2020C>3< complement assayFlako Pinedo Work Phone: Start: 11-05-2020C>4< complement assayFlako Pinedo Work Phone: Start: 82-03-8757Mbzrtwpk measurementFlako Pinedo Work Phone: Start: 36-93-8464Jcdyiiw [Moles/volume] in Serum or PlasmaFlako Pinedo Work Phone: Start: 11-05-2020 End: 20-85-6071Xcqitcog identified in Blood by CultureFlako Pinedo Work Phone: Start: 64-19-5915Woyfqvbcwi exam chest single view Flako Pinedo Work Phone: Start: 18-95-2042Bppp hydroxybutyrate [Moles/volume] in Serum or PlasmaFlako Pinedo Work Phone: Start: 11-05-2020C reactive protein [Mass/volume] in Serum or PlasmaFlako Pinedo Work Phone: Start: 25-56-2762Taicmrcx blood count with white cell differential, automatedFlako Pinedo Work Phone: Start: 69-90-7661Vyikcxel blood count with white cell differential, manualFlako Pinedo Work Phone: Start: 26-74-5110Tlgphqzuhniah metabolic 2000 panel - Serum or PlasmaFlako Pinedo Work Phone: Start: 84-90-1600Xveqlpwv kinase [Enzymatic activity/volume] in Serum or PlasmaFlako Pinedo Work Phone: Start: 34-91-9018Xsiaybadjri sedimentation rate by Westergren methodFlako Pinedo Work Phone: Start: 74-59-0214Jyuemzhznc A1c/Hemoglobin.total in BloodFlako Pinedo Work Phone: Start: 94-69-0603Oxbkhjgtm [Mass/volume] in Serum or PlasmaFlako Pinedo Work Phone: Start: 88-84-2689Rustkhlhl [Mass/volume] in Serum or PlasmaFlako Pinedo Work Phone: Start: 63-73-4279Ngzsrclwdhwgg [Mass/volume] in Serum or PlasmaFlako Pinedo Work Phone: Start: 87-72-6604Yoamoiva measurementFlako Pinedo Work Phone: Start: 01-12-6394Kkbdrguzar examination and evaluation Generic [facility] Plan of Treatment DateCare ActivityDetailAuthorStart: 83-28-5063HPqC,Tdap and Td Vaccines (2 - Td or Tdap)DTaP,Tdap and Td Vaccines (2 - Td or Tdap)[facility] SystemStart: 42-72-2154Piwre microalbumin profileDTaP,Tdap,Td Vaccine (2 - Td or Tdap) [facility]ertart: 96-98-7932Cjayu panelLipid ScreeningAdams County Hospital Start: 97-13-6231Zfzdyiak ScreeningDiabetes ScreeningCleGalion Community Hospitaltart: 48-75-8760Wbwgx BMI ScreeningAdult BMI ScreeningProFirelands Regional [facility] SystemStart: 05-87-2202Vhgjxvwamg ScreeningDepression ScreeningProFirelands Regional [facility] SystemStart: 40-46-2138Wsfqyff ScreeningTobacco ScreeningProFirelands Regional [facility] SystemStart: 99-80-8949Cjkse BMI ScreeningAdult BMI ScreeningBarberton Citizens Hospitalca Health SystemStart: 63-47-6373Rotsj BMI ScreeningAdult BMI ScreeningProKettering Health Main Campusca Health SystemStart: 11-19-7207Wzfibgtbzl ScreeningDepression ScreeningBarberton Citizens Hospitalca [facility] SystemStart: 65-11-3636Fjjxgv Use: CardiovascularStatin Use: CardiovascularProMedica Health SystemStart: 58-80-6519Ioizow Use: DiabeticStatin Use: DiabeticProKettering Health Main Campusca [facility] SystemStart: 66-26-9344Uefqxog ScreeningTobacco ScreeningBarberton Citizens Hospitalca [facility] Start: 64-46-5949Yanur BMI ScreeningAdult BMI ScreeningBarberton Citizens Hospitalca [facility] Start: 31-85-1356Uvtig BMI ScreeningAdult BMI ScreeningBarberton Citizens Hospitalca [facility] Start: 99-70-9521Nzvarhzndj ScreeningDepression ScreeningBarberton Citizens Hospitalca [facility] Start: 80-31-0366Fcatwgx ScreeningTobacco ScreeningBarberton Citizens Hospitalca [facility] SystemStart: 29-30-1640Xbmcd BMI ScreeningAdult BMI ScreeningBarberton Citizens Hospitalca [facility] SystemStart: 44-44-4475Ucgwklexwr ScreeningDepression ScreeningBarberton Citizens Hospitalca [facility] SystemStart: 79-78-5305Nhykxu Use: CardiovascularStatin Use: CardiovascularBarberton Citizens Hospitalca [facility] SystemStart: 80-64-4629Hpojme Use: DiabeticStatin Use: DiabeticBarberton Citizens Hospitalca [facility] SystemStart: 19-28-8999Tafpdzz ScreeningTobacco ScreeningBarberton Citizens Hospitalca [facility] Start: 39-80-5015Ijcxn BMI ScreeningAdult BMI ScreeningBarberton Citizens Hospitalca [facility] Start: 61-46-3482Mkfzvwzuyn ScreeningDepression ScreeningBarberton Citizens Hospitalca [facility] Start: 81-73-8848Jpypglr ScreeningTobacco ScreeningBarberton Citizens Hospitalca [facility] SystemStart: 05-02-1143Wlrfnbq ScreeningTobacco ScreeningBarberton Citizens Hospitalca [facility] SystemStart: 42-94-6972Svaqene ScreeningTobacco ScreeningBarberton Citizens Hospitalca [facility] SystemStart: 37-62-4407Dgogk BMI ScreeningAdult BMI ScreeningMount Ascutney HospitalMedica [facility] SystemStart: 12-24-2025 End: 40-03-1165Sjpkbphr Nnngdsp3412/24/2025 11:00 AM EST Clinical Support [facility] [address] [place] [address] Art Freeman, DO [address] [facility], [address] [place] [address] Hayden Arguello MedicineStart: 18-18-7861Zjpwdfhn screeningDiabetes: Retinopathy ScreeningHCA Midwest DivisionStart: 09-21-2025 End: 00-39-0301Nswevjdo Elncaea7009/21/2025 8:30 AM EDT Clinical Support [facility] [address] [place] [address] Art Freeman, DO [address] [facility], [facility] [address], [facility] [place] [address] Hayden Arguello MedicineStart: 08-30-2025 End: 41-35-0022Negmioon Aucogek3208/30/2025 9:30 AM EDT Clinical Support [facility] Medication Management [address] [place] [address] RiaIafaodTrinity Health System West Campus - Pharmacy Medication ManagementStart: 08-13-2025 End: 04-28-9590Qgusbkks Ypkfsgv5008/13/2025 8:00 AM EDT Clinical Support [facility] Pharm[facility] Medication Management [address] [place] [address] YtwDaxtenTrinity Health System West Campus - Pharmacy Medication ManagementStart: 08-10-2025 End: 10-88-1033Iczyjoq encounter lthzepilj25/19/2025 10:00 AM EDT Office Visit [facility] [address] [facility] [address] [place], [place] [address] Art Freeman, DO [address] [facility], [address] [place] [address] Hayden Arguello MedicineStart: 57-70-5886DrgcsnljcSouthview Medical Center Start: 07-16-2025 End: 53-37-0686Revlwdvb Gcmpvtr7907/16/2025 8:00 AM EDT Clinical Support [facility] - Pharmacy Medication Management [address] [place] [address] CapNwevrl [facility] - Pharmacy Medication ManagementStart: 15-47-0610Teudizdqtv A1c ibbrjotzvitMtQ8D [facility]ertart: 07-09-2025 End: 10-45-5287WnavwhryvSelect Medical Specialty Hospital - [facility] Northtart: 05-22-2025 End: 33-51-2698Pafsltrkw to same day surgery nsqrqs4805/22/2025 2:00 PM EDT [facility] General Surgery [facility] [address] [place] [address] Jerome Del [place]o, [place] [address] 4wk post opGeneral Surgery Comment on above:4wk post opStart: 05-10-2025 End: 19-02-1949Tvpuegtz Xcepvnn6405/10/2025 9:30 AM EDT Clinical Support [facility] [address] [place] [address] Art Freeman, DO [address] [facility], [facility] [address], [address] [place], [place] [address] [facility] MedicineStart: 05-09-2025 End: 66-61-7931Alcafge encounter iukponiok46/18/2025 10:40 AM EDT Office Visit [facility] [address] [facility] [place] [address] Sherri Garcia, 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-IN STORE MARKETING REPRESENTATIVE [address] [place] [address] [facility] ClinicStart: 64-58-2295Svpyigqzt B screeningUrine Albumin:Creatinine RatioSalem Regional Medical Centertart: 22-76-1842Rdawb screening for proteinUrine MicroalbuminProKettering Health Main Campusca Health SystemStart: 04-26-2025 End: 70-71-5666Jbmkwox encounter /05/2025 2:00 PM EDT Office Visit [facility] [address] [place], [place] [address] Art Freeman, DO [address] [facility], [address], [address] [place], [place] [id number] [facility] MedicineStart: 04-26-2025 End: 59-56-8268KQ Lumbar spine Views W right bending and W left bendingX-ray spine lumbar complete including flexion and extension 6+ views Imaging Routine Chronic midline low back pain without sciatica Expected: 04/26/2025, Expires: 04/26/2026[facility] Work Phone: Comment on above:Expected: 04/26/2025, Expires: 04/26/2026Start: 04-25-2025 End: 48-14-1700Fenoqgg encounter swpdsbtup37/04/2025 7:30 AM EDT Appointment [facility] [place] [address] Jerome Del Toro, [place] [address] Diabetic gastroparesis (HCC)[facility] CenterComment on above:Diabetic gastroparesis (HCC)Start: 04-24-2025 End: 70-84-0312Xzaxsed encounter /03/2025 10:30 AM EDT Office Visit [facility] [address] [place] [address] Sherri Garcia, 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-IN STORE MARKETING REPRESENTATIVE [address] [place] [address] [facility] ClinicStart: 04-11-2025 End: 63-56-0775Vrymrdu encounter lxsnivngs68/21/2025 10:40 AM EDT Office Visit [facility] [address] [place] [address] Sherri Garcia, 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-IN STORE MARKETING REPRESENTATIVE [address] [place] [address] [facility] Hospitaltart: 04-10-2025 End: 52-40-3365Itearni encounter procedureGastroenterologyComment on above:New gp consult/emptiesStart: 01-01-2025Medicare Advantage Annual Wellness Visit Medicare Advantage Annual Wellness VisitSalem Regional Medical Centertart: 24-38-0992Cerbd- 19 Vaccine ( season)Covid-19 Vaccine ()[facility] Centertart: 41-54-2600Qbokuwnth vaccinationInfluenza Vaccine (#1)[facility] Centertart: 08-48-1614Khpymijsy vaccinationInfluenza Vaccine (#1)[facility] HealthcareComment on above:Postponed from 07/23/2023 (Patient Refused)Start: 21-43-9779OxtcevqinSelect Medical Specialty Hospital - Cincinnati Northtart: 32-42-9687Joiqxhpgt for malignant neoplasm of colonColorectal Cancer ScreeningNODC HealthcareComment on above:Postponed from 1966 (Other Medical Reasons)Start: 01-06-2024 End: 11-09-5630Mdvqgzv encounter wiynopwyq23/15/2024 4:30 PM EST Office Visit [facility] [address] [place] [address] Cheng Staples NP [address] [place] [address] ArrivedNODC CWM FMComment on above:ArrivedStart: 10-20-2023 Hemoglobin A1c measurementDiabetes: Hemoglobin Y0CZMAC HealthcareStart: 96-05-1585Psvrvzpr foot examinationDiabetic Foot ExamSouthern [facility] Medical Center Start: 92-71-9845Vqhemjsi specific antigen measurementProstate Cancer Screening DiscussionSalem Regional Medical Centertart: 32-22-2561TgL6f (Bld) [Mass fraction]A1C OhioHealthStart: 03-06-2021 End: 01-61-6335Rvzebr Visit03/06/2021 Office Visit Wound Care Marcella Bell MD [address] [place] [address] [phone] [facility] Wound CareStart: 02-14-2021 End: 63-80-3257Khrpit Visit02/14/2021 Office Visit Wound Care Leanne Cherry DPM [address] [place] [address] [phone] [facility] Wound CareStart: 02-06-2021 End: 04-36-8071Fgkpnw Visit02/06/2021 Office Visit Wound Care Marcella Bell MD [address] [place] [address] [phone] [facility] Wound CareStart: 01-24-2021 End: 51-36-9644Necmmw Visit01/24/2021 Office Visit Wound Care Leanne Cherry DPM [address] [place] [address] [phone] [facility] Wound CareStart: 01-09-2021 End: 62-58-9994Bttcpv VisitUniversity Hospitals [facility] Wound CareStart: 12-27-2020 End: 85-94-6439Elnguw Visit12/27/2020 Office Visit Wound Care Leanne Cherry DPM [address] [place] [address] [phone] [facility] Wound CareStart: 12-19-2020 End: 99-96-2547Bzpsnr Visit12/19/2020 Office Visit Wound Care Marcella Bell MD [address] [place] [address] [phone] [facility] Wound CareStart: 90-64-7211Hoihlgmxps examination and evaluationOphthalmology ExamOhioHealthStart: 90-00-6738Taytgpobs vaccination givenSequential Influenza Vaccine (#1)Georg[facility]HealthStart: 91-04-7179Tajkjywdjlfdty of herpes zoster vaccineZoster Vaccines (1 of 2)[facility]HealthStart: 2016 Administration of varicella zoster vaccineZoster (Shingles) Vaccine (1 of 2) [facility] Hospitaltart: 75-30-4403Pturvtdqeziv Vaccine: 50+ (1 of 1 - PCV) Pneumococcal Vaccine: 50+ (1 of 1 - PCV)[facility] Centertart: 2016 Screening for malignant neoplasm of colonMeioHealthStart: 71-62-9223Pudmgems Vaccine (1 of 2)Shingrix Vaccine (1 of 2)[facility] Centertart: 2011 Prostate specific antigen measurementProstate Cancer Screening Discussion [facility] Centertart: 07-42-3044Bnbvjxvvv for malignant neoplasm of colon [facility] Centertart: 05-43-9249Ptnftkery B Vaccine (1 of 3 - 19+ 3-dose series)Hepatitis B Vaccine (1 of 3 - 19+ 3-dose series)[facility] Centertart: 14-71-3158Skqrjbomymac Vaccine: 50+ (1 of 2 - PCV)Pneumococcal Vaccine: 50+ (1 of 2 - PCV)[facility] Centertart: 81-22-6518Oahis screening for proteinDiabetes: Urine Protein ScreeningHCA Midwest DivisionStart: 40-32-9643Anreu BMI Follow Up Plan Adult BMI Follow Up PlanWakeMed Cary Hospitaltart: 62-82-5586Hxkroz PCP Team Chronic Disease VisitAnnual PCP Team Chronic Disease VisitSalem Regional Medical Centertart: 38-97-6182Wwphcow ScreeningAnxiety ScreeningSalem Regional Medical Centertart: 1984 Depression ScreeningDepression ScreeningSalem Regional Medical Centertart: 1984 Hepatitis B surface antibody levelLDL CholesterolSalem Regional Medical Centertart: 33-84-9547Xcsmirgul C antibody, confirmatory testHepatitis C ScreeningOhioHealth Start: 59-64-8917Wpdguhese C screeningHepatitis C ScreeningCleAshtabula County Medical Center Start: 38-75-2609KID screeningHIV ScreeningSalem Regional Medical Centertart: 1982 COVID-19 Vaccine (1 of 2)COVID-19 Vaccine (1 of 2)[facility]HealthStart: 28-27-2729LLB screeningHIV ScreeningOhioHealthStart: 15-93-1063Ikrjwtvuxb depression screening assessmentProMercy Health St. Vincent Medical Centertart: 67-81-5768Spkjbaq DL <= 20 mg/L (U) [Mass/Vol]Urine MicroalbuminOhioHealthStart: 60-21-4284Vqebgmfw foot examination [facility] Centertart: 48-48-1276Gfwbjuph screeningDilated Retinal ExamSalem Regional Medical Centertart: 51-44-6948Qfzghbjatj examination and evaluationOphthalmology Exam [facility] HospitalStart: 65-71-5740Qjuzkut and physical examination, annual for health maintenanceMary Washington Hospital VisitOhioHealthStart: 39-17-0760Pcpypqdn screeningDiabetic Ophthalmology ExamProMercy Health St. Vincent Medical Centertart: 1966Medicare Annual Wellness (AWV)Medicare Annual Wellness (AWV)[facility] HealthcareStart: 1966 Prostate specific antigen measurementPSA LevelOhioHealthStart: 1966 Screening for malignant neoplasm of colonNOMS HealthcareStart: 82-69-0554Twdjhoh vaccinationTetanus: Every 10yrsOhioHealth End: 26-27-370902 lead ECGECG 12 Lead ECG Routine Once for 1 Occurrences starting 11/05/2020 until 11/05/2020OhioHealthComment on above:Once for 1 Occurrences starting 11/05/2020 until 11/05/2020Aerobic microbial cultureWound Aerobic Culture Microbiology Routine Subacute osteomyelitis of left foot (HCC) Charcot's joint of ankle, unspecified laterality 12/27/2020 12:24 PM EST GeorgiaHealthBacteria identified Aer cx Nom (Bone)[facility] HospitalBacteria identified Anaer cx Nom (Unsp spec)[facility] End: 52-42-4450DNI W Auto Differential panel - BloodCBC auto differential Lab Routine Type 2 diabetes mellitus with foot ulcer, with long-term current use of insulin ([facility]) 1 Occurrences starting 04/26/2025 until 04/26/2026[facility] SystemComment on above:1 Occurrences starting 04/26/2025 until 04/26/2026 End: 82-95-1423Uzkuzffbvacbw metabolic 2000 panel - Serum or PlasmaComprehensive metabolic panel Lab Routine Type 2 diabetes mellitus with foot ulcer, with long-term current use of insulin ([facility]) Fatty liver disease, nonalcoholic 1 Occurrences starting 04/26/2025until 04/26/2026ProFirelands Regional Medical Center South Campus SystemComment on above:1 Occurrences starting 04/26/2025 until 04/26/2026T angiography of head [facility] HospitalCT angiography of neck vesselsMercy Health Urbana Hospital End: 08-29-9953Kprpiltwvmdnql vitamin b-12Vitamin B12 Lab Routine Fatigue, unspecified type 1 Occurrences starting 05/10/2025 until 05/10/2026ProFirelands Regional Medical Center South Campus SystemComment on above:1 Occurrences starting 05/10/2025 until 05/10/2026 End: 70-43-1075UGWLFIIOEpffxgrs Procedures Routine Subacute osteomyelitis of left foot (HCC) 1 Occurrences starting 12/19/2020 until 2[facility] Comment on above:1 Occurrences starting 12/19/2020 until 12/19/2021 End: 12-62-8624HRYIMFBTWyevixte Procedures Routine Subacute osteomyelitis of left foot (HCC) 1 Occurrences starting 01/09/2021 until 2[facility] Comment on above:1 Occurrences starting 01/09/2021 until 01/09/2022 End: 30-51-2599EXLEBPFDSaivcdkh Procedures Routine Foot abscess, left 1 Occurrences starting 02/06/2021 until 2OhioHealthComment on above:1 Occurrences starting 02/06/2021 until 02/06/2022 End: 73-07-2670Xsdvgmflam A1c/Hemoglobin.total in BloodHemoglobin A1c Lab Routine Type 2 diabetes mellitus with foot ulcer, with long-term current use of insulin ([facility]) 1 Occurrences starting 04/26/2025 until 04/26/2026ProFirelands Regional Medical Center South Campus SystemComment on above:1 Occurrences starting 04/26/2025 until 04/26/2026 End: 14-61-5515Zxpku panelLipid panel Lab Routine Type 2 diabetes mellitus with foot ulcer, with long-term current use of insulin ([facility]) Hyperlipidemia, unspecified hyperlipidemia type 1 Occurrences starting 07/05/2025 until 07/05/2026[facility] Work Phone: Comment on above:1 Occurrences starting 07/05/2025 until 07/05/2026 End: 86-98-3172Ijjwaddyi [Mass/volume] in Serum or PlasmaMagnesium Lab Routine Fatigue, unspecified type 1 Occurrences starting 05/10/2025 until 05/10/2026 [facility] SystemComment on above:1 Occurrences starting 05/10/2025 until 05/10/2026Patient EducationPomerene Hospital Ctr Work Phone: Patient referralPomerene Hospital Ctr Work Phone: End: 06-48-5522Jiwuqjcpn specific antigen screenProstatic specific antigen screen Lab Routine Encounter for screening for malignant neoplasm of prostate 1 Occurrences starting 05/10/2025 until 05/10/2026ProY[facility] Work Phone: Comment on above:1 Occurrences starting 05/10/2025 until 05/10/2026Radionuclide gastric emptying studyMercy Health Urbana Hospital End: 92-40-2885Lqmmjkexdesk, Total and Free, STestosterone, Total and Free, S Lab Routine Fatigue, unspecified type 1 Occurrences starting 05/10/2025 until 05/10/2026[facility] Citizens HospitalGood Photo SystemComment on above:1 Occurrences starting 05/10/2025 until 05/10/2026 End: 56-34-2445Ihqzjfm D 25 hydroxyVitamin D 25 hydroxy Lab Routine Fatigue, unspecified type 1 Occurrences starting 05/10/2025 until 05/10/2026ProKettering Health Main CampusGood Photo SystemComment on above:1 Occurrences starting 05/10/2025 until 05/10/2026 Wound Anaerobic CultureWound Anaerobic Culture Microbiology Routine Subacute osteomyelitis of left foot (HCC) Charcot's joint of ankle, unspecified laterality 12/27/2020 12:24 PM ESTOhioHealth End: 54-33-4893K-ray of left footXR Foot Left 3+ Views (Standard) Imaging Routine Subacute osteomyelitis of left foot (HCC) 1 Occurrences starting 01/24/2021 until 01/24/2022hioHealthComment on above:1 Occurrences starting 01/24/2021 until 01/24/2022X-ray of left footXR Foot Left 3+ Views (Standard) Imaging Routine Subacute osteomyelitis of left foot (HCC) 01/24/2021 2:27 PM [facility] Immunizations Immunization DateImmunizationNotesCare XdboznggVbqwqsoa87-89-0034ovzrznm toxoid, reduced diphtheria toxoid, and acellular pertussis vaccine, dieterLisa Staples [employer] Work Phone: [facility] Healthcare Payers DatePayer CategoryPayerPolicy [id number] (Managed Care)[employer] MEDICARE [id number] 2024Medicare HMO [employer] MED[employer]ARE Member Subscriber Plan / Payer (Effective 2023-Present) Name: More Kingsley Jr. Relation to Subscriber: Self Name: More Kingsley Jr. Payer ID: 1 (NAIC) Type: Not on file Address: [address] [place] [id number] 52-31-4450[facility] [id number] 2.16.840.0.982341.9260-01-2023 [id number] 2.16.840.8.059745.38415916-83-4004LevlvxxJZAGLQF HEALTH DEVOTED HEALTH [id number] 2023-Present [address] [place] [address] [id number] 2021Medicare2019Medicare [id number] [id number] 1.2.840.249450.1.13.385.2.7.3.315[id number] 2.16.840.1.977841.3.57[id number] 2.16.840.1.826329.3.57[id number] 2.16.840.1.708646.3.57[id number] 2.16.840.1.850131.3.57[id number] 2.16.840.1.622331.3.57[id number] 2.16.840.1.701262.3.57[id number] 2.16.840.1.293929.3.57[id number] 2.16.840.1.683206.3.57[id number] 2.16.840.1.274486.3.57[id number] 2.16.840.1.403202.3.57[id number] 2.16.840.1.541950.3.57[id number] 2.16.840.1.946429.3.57[id number] 2.16.840.1.495094.3.57[id number] 2.16.840.1.647318.3.57[id number] 2..840.1.592632.3.579.[id number] 2..840.1.999635.3.579.[id number] 2.840.1.769738.3.579.2.027627-78-1469Piiszcc2517031 2..840.1.994236.3.579.2.197138-15-6645Brpfajm576068 2..840.1.819652.3.579.2.3[id number] 2.840.1.260929.3.579.2.4[id number] 2..840.1.934552.3.579.2.408173-70-0166Ixhuhik329622656 2..840.1.203252.3.579.2.393807-91-1242Oedqhsp380277354 2.16.840.1.884225.3.579.2.7[id number] 2.16840.1.660080.3.579.2.167207-17-3023Akyqycl547251163 2.16.840.1.182466.3.579.2.555099-89-1025Bmuuxtm644081941 2.0.1.913996.3.579.2.391134-29-3132Lvdbkhc128727473 2.840.1.987530.3.579.2.603553-55-3050Gkligek216527622 2.0.1.887001.3.579.2.109056-12-5407Drgkyvx741390901 2.0.1.781564.3.579.2.635095-83-7705Tmlvivg021698757 2.840.1.480798.3.579.2.726805-34-8165Rzcboby049055007 2..1.660684.3.579.2.844715-66-5225Cyukskt727284373 2.0.1.489783.3.579.2.387585-25-7690Jbcujci045871714 2..1.829281.3.579.2.106891-74-9114Pygntca283675659 2.0.1.780324.3.579.2.585307-14-1387Xrqwpcm504312700 2..1.874778.3.579.2.1286 [id number] 2.0.1.487494.19 Susx[id number] 2.840.1.320914.3.579.2.253Fcunvmn68355789 2.840.1.146664.3.579.2.813Wpvnctk03059045 2.840.1.083200.3.579.2.531 Social History DateTypeDetailFacilityStart: 12-22-2019 End: 83-49-3880Yhexccz smoking status NHISNever smokerNOMS HealthcareStart: 12-22-2019 End: 91-03-4845Tibvxvs use and exposureNever usedOhioHealthStart: 11-19-2020 End: 70-34-2948Tnqplbu intakeCurrent drinker of alcohol (finding)[facility] Start: 42-16-0282Zpkvekm CommentrarelyOhioHealthStart: 01-22-7153Vcd Assigned At BirthNot on fileOhioHealthExposure to SARS-CoV-2 (event)Not sureOhioHealth Start: 02-07-2021 End: 65-45-1442Yfi Assigned At BirthCeiba [employer] Other Start: 01-06-2024 End: 89-34-9263Izxyvvr intakeEx-drinker (finding)NOMS HealthcareStart: 02-07-2021 End: 66-87-6775Hzgdfau of Social functionNOMS HealthcareStart: 23-62-4738Hoduvmd Commentpop-4 cups dailyNOMS HealthcareStart: 73-69-9599Zfm [facility] Centertart: 99-79-3623Gwtbclu smoking status NHISEx-smoker (finding)[facility] HospitalTob[facility]ill[facility] smoking status NHISTobacco smoking consumption unknownAdams County HospitalNational Score (1-100), lower number is lower yypr58Giksrisom ClinicDo you belong to any clubs or [...] time - these days [OSQ]To some extent [facility] Medical CenterCubiez SystemStart: 10-73-7325Rhvntiq Commentquit 2005ProKettering Health Main CampusGood Photo SystemStart: 94-78-5879IadRpqa (finding)[facility] Medical CenterCubiez SystemNEGATED: Highlighted rowStart: NINFHistory of tobacco usePassive smokerAdams County Hospital Medical Equipment Procedure CodeEquipment CodeEquipment Original TextEquipment IdentifierDates [id number]: 08-03-2021 End: 94-58-0441Lcyo Bn Bio 40gm Rpl [id number] - [id number] Start: 53-98-9258Wtkz Iol Ultrasert 18.5d - [id number] - [id number] Start: Pen Needle by miscellaneous route in the morning and 1 Pen Needle at noon and 1 Pen Needle in theevening and 1 Pen Needle before bedtime. [id number]: 04-26-2025 End: strip by other route 4 (four) times a day before meals and nightly.[id number]: 04-26-2025 End: strip by other route 4 (four) times a day before meals and nightly.[id number]: 05-10-2025 End: strip by other route 4 (four) times a day before meals and nightly.[id number]: 05-16-2025 End: strip by other route 4 (four) times a day before meals and nightly.[id number]: 07-05-2025 End: strip by other route 3 (three) times a day.[id number]: 07-06-2025 Goals DatePatient GoalDesired Activity/StatePersonal health goalComment on above: Evaluation of progress towards goal: [facility] Functional Status UttwHdgxozlwyuKzygskKftrmrck02-27-4601Aznsn score [AUDIT-C]0 09/21/2025 8:28 AM EDDanielle Obregon CNAProMedica [facility] Clinical Notes 08-25-2022 to 09-21-2025 Note Date & IfsiXardIuzphvje45-44-8205 History of Present illness Narrative* Art Freeman, DO - 09/21/2025 8:30 AM EDT Images from the original note were not included. [facility] [address] [place] [address] [place] [address] Patient: More Kingsley Jr. Date of : [...] 02/2021 left foot Chronic osteomyelitis of foot ([facility]) 02/2021 left/with draining sinus Dental disease poor repair Diabetes mellitus type 2, controlled ([facility] 1999 Hyperlipidemia Hypertension PICC (peripherally inserted central catheter) flush 02/2021 Visual impairment glasses Past Surgical History: Procedure Laterality Date AMPUTATION SYMES LOWER EXTREMITY Left 04/18/2021 Performed by Chan Brooke DPM at [facility] AMPUTATION TOEMID FOOT OSTEOTOMY ACHILLES TENOTOMY Left 02/07/2021 Performed by Chan Brooke DPM at [facility] ASPIRATION BONE MARROW BIOPSY BONE MARROW (BONE BIOPSY) Left 03/24/2021 Performed by Chan Brooke DPM at [facility] CLOSURE WOUND LOWER EXTREMITY (DELAYED PRIMARY CLOSURE) Left 03/24/2021 Performed by Chan Brooke DPM at [facility] DEBRIDEMENT FOOT/ANKLE Left 02/07/2021 Performed by Chan Brooke DPM at [facility] EXOSTECTOMY FOOT Right 09/01/2021 Performed by Chan Brooke DPM at [facility] PHACO KELMAN I IMPLANT INTRAOCULAR LENS Right 12/28/2019 Performed by Debra Trejo MD at [facility] REMOVAL HARDWARE FOOT/TOE, AND REMOVAL ANTIBIOTIC SPACER Left 03/24/2021 Performed by Chan Brooke DPM at [facility] TONSILLECTOMY as child Family History Problem [...] and 11 to the basement. Worked at [employer]. Now disabled Social Drivers of Health Financial Resource Strain: Low Risk (01/06/2024) Received from [facility] Overall Financial Resource Strain (CARDIA) Difficulty of [...] Needs: Unmet Transportation Needs (01/06/2024) Received from [facility] PRAPARE - Transportation Lack of Transportation (Medical): Yes Lack of Transportation (Non-Medical): Yes Physical Activity: Inactive (01/06/2024) Received from [facility] Exercise Vital Sign On average, how many days per week do you engage in moderate to strenuous exercise (like a brisk walk)?: 0 days On average, how many minutes do you engage in exercise at this level?: 0 min Stress: Stress Concern Present (01/06/2024) Received from [facility] [place] of Occupational Health - Occupational Stress Questionnaire Feeling of Stress : Very much Social Connections: Socially Isolated (01/06/2024) Received from [facility] Social Connection and Isolation Panel In a typical week, how many times do you talk on the phone with family, friends, or neighbors?: Never How often do you get together with friends or relatives?: Never How often do you attend mormonism or jew services?: Never Do you belong to any clubs or organizations such as mormonism groups, unions, fraternal or athletic groups, or school groups?: Yes How often do you attend meetings of the clubs or organizations you belong to?: Never Are you , , , , never , or living with a partner?: Interpersonal Safety: Unknown (01/13/2024) Received from [facility] Safety & Environment Fear of Current or Ex-Partner: Not on file Emotionally Abused: Not on file Physically Abused: Not on file Sexually Abused: Not on file Physically or Sexually Abused: Not on file Housing Instability: Low Risk (01/06/2024) Received from [facility] Housing Stability Vital Sign Unable to Pay [...] HISTORY: Right foot ulcer, with unspecified severity ([facility] COMPARISON: 03/04/2025 IMPRESSION: Unchanged [...] ulcer, with long-term current use of insulin ([facility]) - POCT Hemoglobin A1c - insulin [...] hyperlipidemia due to type 2 diabetes mellitus ([facility]) No problem-specific Assessment & Plan notes [...] DO 09/21/25 2:02 PM documented in this encounterSouthern [place] [facility] Center10-31-2025 Instructions* Patient Instructions* Art Freeman DO - [...] daily for heartburn symptoms documented in this encounterSouthern [place] Medical Center10-09-2025 Miscellaneous Notes* Telephone Encounter - Phu Ocasio MA - 08/30/2025 1:02 PM EDT The patient was a no show today. Cmm Inspector OPAL requesting patient call back to schedule another appointment. documented in this encounterSouthern [place] Medical Center10-09-2025 Telephone encounter Note* Telephone Encounter - Phu Ocasio MA - 08/30/2025 1:02 PM EDT The patient was a no show today. Cmm Inspector OPAL requesting patient call back to schedule another appointment. [facility] [place] [facility]10-06-2025 Miscellaneous Notes* Telephone Encounter - Sangeetha Ivory - 08/27/2025 2:12 PM EDT Patient presenting to office requesting refill of amox/k clav 875-125 MG tab to [facility]. Please advise * Telephone Encounter [...] twice daily for 14 days sent into [place], [place] documented in this encounterSouthern [place] Medical Center10-06-2025 Telephone encounter Note* Telephone Encounter - Sangeetha Ivory - 08/27/2025 2:12 PM EDT Patient presenting to office requesting refill of amox/k clav 875-125 MG tab to [facility]. Please advise [facility] [place] [facility]10-06-2025 Telephone encounter Note* Telephone Encounter - Danielle Masters CNA - 08/27/2025 2:12 PM EDT Spoke with patient, he states he would like a refill for this medication. Spoke with him and he states he is still having symptoms Please advise? [facility] [place] [facility]10-06-2025 Telephone encounter Note* Telephone Encounter - Art Freeman DO - 08/27/2025 2:12 PM EDT Prescription for Augmentin 875/125 mg 1 tablet twice daily for 14 days sent into [place], [place] [facility] [place] [facility]10-03-2025 Miscellaneous Notes* Telephone Encounter - Ev Marquez CMA - 08/24/2025 10:18 AM EDT Attempted to call patient and inform him on NovoLog in office for him to cloth picker in office, no answer, left voicemail. documented in this encounterMount Ascutney HospitaliBid2Save10-03-2025 Telephone encounter Note* Telephone Encounter - Ev Marquez CMA - 08/24/2025 10:18 AM EDT Attempted to call patient and inform him on NovoLog in office for him to cloth picker in office, no answer, left voicemail. [facility] CenterThought Network S.A.S10-01-2025 Radiology [facility] [place] [address] CT Scan Report Signed Patient: More Kingsley MR#: [id number] : 1965 Acct:[id number] Age/Sex: 59 / M ADM Date: 5 Loc: CT Room: Type: [facility] Attending Dr: Cathy Leggett BURNER HAND-C Copies to: Cathy Leggett APRN~ Ordering Provider: Cathy Leggett APRN Date of Service: 08/22/25 CT/CT angio head: I65.23 - Occlusion and stenosis of bilateral carotid ney... ([id number]) CT/CT angio neck: I65.23 - Occlusion and [...] Kidd M.D. 08/22/2025 5:14 PM Dictation Location: [facility]-- Transcribed By: AMBER 08/22/251713 Dictated By: Blair Kidd II, MD 08/22/251703 Signed By: 08/22/251713 [facility] Work Phone: [phone] Miscellaneous Notes* Telephone Encounter - Ev Marquez CMA - 08/16/2025 11:15 AM EDT Attempted to call patient to inform of package for Lantus medication received in office and ready for him to cloth picker documented in this encounterMount Ascutney HospitaliBid2Save09-25-2025 Telephone encounter Note* Telephone Encounter - Ev Marquez CMA - 08/16/2025 11:15 AM EDT Attempted to call patient to inform of package for Lantus medication received in office and ready for him to cloth picker [facility] [place] [facility]09-22-2025 History of Present illness Narrative* Roxy Lenz, [facility] - 08/13/2025 8:00 AM EDT [facility] MEDICATION MANAGEMENT [address] [facility] [id number] Subjective SUBJECTIVE: Referring Provider: Art Freeman DO [...] and Novolog. [facility]. To this [...] Blood Glucose Device Brand: Accu-check Diabetic Supplier: [employer] [facility] [place] Retail Date FBG AC PPG 08/13 237 [...] B12 Level: Lab Results Component Value Date [id number] 1,009 (H) 05/16/2025 Lipid Management: Lab Results [...] for instruction with dosing Patient stated to [facility] that he did not need to do this as his glucose is well controlled when he hasthese insulins. Explained his A1C has not been controlled in some time and to please notify PPMM sowe can safely adjust his dosing. Patient non-committal to this. Refills needed on pertinent current medications/supplies: No Patient Assistance, Director Of Education And Training Coupon, or Prior Authorization: Yes PAP singed for Farxiga today PAP with Sonofi (Lantus) approved 2024 PAP with Alejandra Nordisk (Novolog) approved 2024 Ozempic PAP started today Patient will need to cloth picker medication from providers office MONITORING: CGM: N/A Glucometer Testing: Twice daily (fasting and alternating post-prandial and before meals) FOLLOW UP: Next PCP visit: 09/21/2025 Next Pharmacist visit: 08/30/25 Signature: Roxy Lenz PharmD, [facility] 30 minute pspp-dw-hkra follow-up appointment. Roxy Lenz RPH 08/13/25 1202 documented in this encounterSouthern [place] Medical Center09-19-2025 History of Present illness Narrative* Art Freeman, DO - 08/10/2025 10:00 AM EDT Images from the original note were not included. [facility] [address] [place] [address] [place] [address] Patient: More Kingsley Jr. Date of : [...] 02/2021 left foot Chronic osteomyelitis of foot ([facility]) 02/2021 left/with draining sinus Dental disease poor repair Diabetes mellitus type 2, controlled ([facility] 1999 Hyperlipidemia Hypertension PICC (peripherally inserted central catheter) flush 02/2021 Visual impairment glasses Past Surgical History: Procedure Laterality Date AMPUTATION SYMES LOWER EXTREMITY Left 04/18/2021 Performed by Chan Brooke DPM at [facility] AMPUTATION TOEMID FOOT OSTEOTOMY ACHILLES TENOTOMY Left 02/07/2021 Performed by Chan Brooke DPM at [facility] ASPIRATION BONE MARROW BIOPSY BONE MARROW (BONE BIOPSY) Left 03/24/2021 Performed by Chan Brooke DPM at [facility] CLOSURE WOUND LOWER EXTREMITY (DELAYED PRIMARY CLOSURE) Left 03/24/2021 Performed by Chan Brooke DPM at [facility] DEBRIDEMENT FOOT/ANKLE Left 02/07/2021 Performed by Chan Brooke DPM at [facility] EXOSTECTOMY FOOT Right 09/01/2021 Performed by Chan Brooke DPM at [facility] PHACO KELMAN I IMPLANT INTRAOCULAR LENS Right 12/28/2019 Performed by Debra Trejo MD at [facility] REMOVAL HARDWARE FOOT/TOE, AND REMOVAL ANTIBIOTIC SPACER Left 03/24/2021 Performed by Chan Brooke DPM at [facility] TONSILLECTOMY as child Family History Problem [...] and 11 to the basement. Worked at [employer]. Now disabled Social Drivers of Health Financial Resource Strain: Low Risk (01/06/2024) Received from [facility] Overall Financial Resource Strain (CARDIA) Difficulty of Paying Living Expenses: Not hard at all Food Insecurity: Food Insecurity Present (08/10/2025) Hunger Screening Food Insecurity - Worry: Sometimes True Food Insecurity - Inability: Sometimes True Transportation Needs: Unmet Transportation Needs (01/06/2024) Received from [facility] PRAPARE - Transportation Lack of Transportation (Medical): Yes Lack of Transportation (Non-Medical): Yes Physical Activity: Inactive (01/06/2024) Received from [facility] Exercise Vital Sign Days of Exercise per Week: 0 days Minutes of Exercise per Session: 0 min Stress: Stress Concern Present (01/06/2024) Received from [facility] [place] of Occupational Health - Occupational Stress Questionnaire Feeling of Stress : Very much Social Connections: Socially Isolated (01/06/2024) Received from [facility] Social Connection and Isolation Panel [NHANES] Frequency of Communication with Friends and Family: Never Frequency of Social Gatherings with Friends and Family: Never Attends Gnosticism Services: Never Active Member of Clubs or Organizations: Yes Attends Club or Organization Meetings: Never Marital Status: Interpersonal Safety: Unknown (01/13/2024) Received from [facility] Safety & Environment Fear of Current or Ex-Partner: Not on file Emotionally Abused: Not on file Physically Abused: Not on file Sexually Abused: Not on file Physically or Sexually Abused: Not on file Housing Instability: Low Risk (01/06/2024) Received from [facility] Housing Stability Vital Sign Unable to Pay [...] HISTORY: Right foot ulcer, with unspecified severity ([facility]). COMPARISON: 03/04/2025 IMPRESSION: Unchanged indication about the [...] ulcer, with long-term current use of insulin ([facility]) - lisinopriL (PRINIVIL,ZESTRIL) 10 mg tablet; Take 1 tablet (10 mg total) by mouth in the morning for 360 days. Dispense: 90 tablet; Refill: 3 - insulin NPH (HumuLIN N,NovoLIN N) 100 unit/mL injection; 38 units in the morning and 40 units at nighttime Dispense: 10 mL; Refill: 3 5. Mixed hyperlipidemia due to type 2 diabetes mellitus ([facility]) - atorvastatin (LIPITOR) 80 [...] of right foot with fat layer exposed ([facility]) - amoxicillin-pot clavulanate (AUGMENTIN) 875-125 mg per tablet; Take 1 tablet by mouth in the morning and 1 tablet before bedtime. Do all this for 14 days. Dispense: 28 tablet; Refill: 0 7. Type 2 diabetes mellitus with other circulatory complication, with long-term current use of insulin ([facility]) - semaglutide (OZEMPIC) 0.25 [...] DO 08/10/25 1:49 PM documented in this encounterSouthern [place] Medical Center09-19-2025 Instructions* Patient Instructions* Art Freeman DO - 08/10/2025 10:00 AM EDT Increased atorvastatin to 80 mg daily and start on niacin 500 mg 1 tablet nightly for HDL improvement. Take Niacin with aspirin 81 mg daily to help with flushing. Increase Novolin N to 38 units in the morning and 40 units in the evening documented in this encounterSouthern [place] Medical Center08-26-2025 Miscellaneous Notes* Telephone Encounter - Olamide Luna - 07/17/2025 11:58 AM EDT Alejandra Nordisk Patient assistance application faxed to Dr. Art Freeman's office at [phone] forprovider signature. To follow up call [phone]. [employer] Patient assistance application faxed to Dr. Art Freeman's office at [phone] for provider signature. To follow up call [phone]. documented in this [facility]08-26-2025 Telephone encounter Note* Telephone Encounter - Olamide Luna - 07/17/2025 11:58 AM EDT Alejandra Nordisk Patient assistance application faxed to Dr. Art Freeman's office at [phone] forprovider signature. To follow up call [phone]. [employer] ([employer]) Patient assistance application faxed to Dr. Art Freeman's office at [phone] for provider signature. To follow up call [phone]. [facility] [place] [facility]08-26-2025 Miscellaneous Notes* Telephone Encounter - Danielle Masters CNA - 07/17/2025 8:26 AM EDT Attempted to balbri patient, left VM ----- Message from Art Freeman DO sent at 07/17/2025 8:29 AM EDT ----- Let Mr. Kingsley know that his lipid panel results show cholesterol and LDL levels increased compared to last year. Continue with atorvastatin 40 mg daily ----- Message ----- From: Lab, Background User Sent: 07/16/2025 3:26 PM EDT To: Art Freeman DO documented in this encounterSouthern [place] Medical Center08-26-2025 Telephone encounter Note* Telephone Encounter - Danielle [...] 3:26 PM EDT To: Art Freeman DO [facility] [place] [facility]08-25-2025 History of Present illness Narrative* Lele Frye, [facility] - 07/16/2025 8:00 AM EDT Images from the original note were not included. [facility] MEDICATION MANAGEMENT [address] [facility] [id number] Subjective SUBJECTIVE: Referring Provider: Art Freeman DO [...] assistance for his insulins. Applications for both [employer] ([employer]) and Alejandra NordRimini Street completed today for Lantus, Novolog, and if [...] and will report any side effects to [facility] immediately. Will also need to follow [...] Blood Glucose Device Brand: Accu-check Diabetic Supplier: [employer] [facility] [place] Retail BG in the mid to high [...] B12 Level: Lab Results Component Value Date [id number] 1,009 (H) 05/16/2025 Lipid Management: Lab Results [...] on pertinent current medications/supplies: No Patient Assistance, Director Of Education And Training Coupon, or Prior Authorization: Yes PAP with Sonofi (Lantus) PAP with Alejandra Nordisk (Novolog) Patient will need to cloth picker medication from providers office MONITORING: CGM: N/A Glucometer Testing: Twice daily (fasting and alternating post-prandial and before meals) FOLLOW UP: Next PCP visit: 08/10/2025 Next Pharmacist visit: 1 month Signature: LELE FRYE RPH 60 minute bkcg-ow-ytei initial appointment. Lele Frye RPH 07/16/25 1335 documented in this encounterSouthern [place] Medical Center08-15-2025 Evaluation + Plan note* Assessment & Plan Note - Art Freeman DO - 07/06/2025 2:46 PM EDT Associated Problem(s): Peripheral artery disease Patient with moderate to severe peripheral artery disease based on studies from hospitalization earlier in June. Patient scheduled to have vascular procedure on 07/09. Improvement in vascular function will help with diabetic foot ulcer heal [facility] [place] [facility]08-15-2025 Miscellaneous Notes* Assessment & Plan Note - [...] 2:42 PM EDT Associated Problem(s): Diabetes mellitus ([facility]) Patient diabetes is uncontrolled. Due to financial restrictions, he is unable to afford insulin which he uses to control blood sugar. Patient's last hemoglobin A1c from April 2025 was 11.5%. Discussed with patient the importance of blood sugar control. Since patient having difficulty affording the cost of medications we will refer patient to the [facility] medical management team fordiabetes to aid with patient assistance and management of blood sugars for tighter control.. documented in this encounterSouthern [place] Medical Center08-15-2025 Evaluation + Plan note* Assessment & Plan Note - Art Freeman DO - 07/06/2025 2:42 PM EDT Associated Problem(s): Diabetes mellitus ([facility] Patient diabetes is uncontrolled. Due to financial restrictions, he is unable to afford insulin which he uses to control blood sugar. Patient's last hemoglobin A1c from April 2025 was 11.5%. Discussed with patient the importance of blood sugar control. Since patient having difficulty affording the cost of medications we will refer patient to the [facility] medical management team fordiabetes to aid with patient assistance and management of blood sugars for tighter control.. [facility] [place] [facility]08-14-2025 Miscellaneous Notes* Telephone Encounter - Jennie Celaya - 07/05/2025 11:10 AM EDT [facility] [place] [phone] New referral received by [facility] for diabetes. Patient was contacted to schedule appointment at [facility] [place] ([facility]). This was my first attempt to [...] called and scheduled an appointment 07/16/25 at [facility]. documented in this encounterSouthern [facility] Medical Center08-14-2025 Telephone encounter Note* Telephone Encounter - Jennie Celaya - 07/05/2025 11:10 AM EDT [facility] [address] [phone] New referral received by [facility] for diabetes. Patient was contacted to schedule appointment at [facility] [place] ([facility]). This was my first attempt to reach the patient and a message was left on their voicemail requesting a call back. [facility] Additional Info: Medication List. Referring provider: Art Freeman DO Patient with poorly controlled diabetes in part due to issues with affording the cost of insulin. Use is sporadic. ALos had chronic nonhealing diabetic wound on foot. Office does not have samples to provide [facility]08-14-2025 Telephone encounter Note* Telephone Encounter - Phu Ocasio MA - 07/05/2025 11:10 AM EDT Patient called and scheduled an appointment 07/16/25 at [facility]. [facility]08-14-2025 History of Present illness Narrative* Art Freeman, - 07/05/2025 9:30 AM EDT Images from the original note were not included. [facility] [address] [place] [address] [place] [address] Patient: More Kingsley Jr. Date of : [...] 20, 2025 until June 22, 2025 at [facility] for diabetic infection of the right [...] 02/2021 left foot Chronic osteomyelitis of foot ([facility]) 02/2021 left/with draining sinus Dental disease poor repair Diabetes mellitus type 2, controlled ([facility] 1999 Hyperlipidemia Hypertension PICC (peripherally inserted central catheter) flush 02/2021 Visual impairment glasses Past Surgical History: Procedure Laterality Date AMPUTATION SYMES LOWER EXTREMITY Left 04/18/2021 Performed by Chan Brooke DPM at [facility] AMPUTATION TOEMID FOOT OSTEOTOMY ACHILLES TENOTOMY Left 02/07/2021 Performed by Chan Brooke DPM at [facility] ASPIRATION BONE MARROW BIOPSY BONE MARROW (BONE BIOPSY) Left 03/24/2021 Performed by Chan Brooke DPM at [facility] CLOSURE WOUND LOWER EXTREMITY (DELAYED PRIMARY CLOSURE) Left 03/24/2021 Performed by Chan Brooke DPM at [facility] DEBRIDEMENT FOOT/ANKLE Left 02/07/2021 Performed by Chan Brooke DPM at [facility] EXOSTECTOMY FOOT Right 09/01/2021 Performed by Chan Brooke DPM at [facility] PHACO KELMAN I IMPLANT INTRAOCULAR LENS Right 12/28/2019 Performed by Debra Trejo MD at [facility] REMOVAL HARDWARE FOOT/TOE, AND REMOVAL ANTIBIOTIC SPACER Left 03/24/2021 Performed by Chan Brooke DPM at [facility] TONSILLECTOMY as child Family History Problem [...] and 10 to the basement. Worked at [employer]. Now disabled Social Drivers of Health Financial Resource Strain: Low Risk (01/06/2024) Received from [facility] Overall Financial Resource Strain (CARDIA) Difficulty of Paying Living Expenses: Not hard at all Food Insecurity: No Food Insecurity (07/05/2025) Hunger Screening Food Insecurity - Worry: Never True Food Insecurity - Inability: Never True Transportation Needs: Unmet Transportation Needs (01/06/2024) Received from [facility] PRAPARE - Transportation Lack of Transportation (Medical): Yes Lack of Transportation (Non-Medical): Yes Physical Activity: Inactive (01/06/2024) Received from [facility] Exercise Vital Sign Days of Exercise per Week: 0 days Minutes of Exercise per Session: 0 min Stress: Stress Concern Present (01/06/2024) Received from [facility] [place] [facility] [employer] [facility] - Occupational Stress Questionnaire Feeling of Stress : Very much Social Connections: Socially Isolated (01/06/2024) Received from [facility] Social Connection and Isolation Panel [NHANES] Frequency of Communication with Friends and Family: Never Frequency of Social Gatherings with Friends and Family: Never Attends Gnosticism Services: Never Active Member of Clubs or Organizations: Yes Attends Club or Organization Meetings: Never Marital Status: Interpersonal Safety: Unknown (01/13/2024) Received from [facility] Safety & Environment Fear of Current or Ex-Partner: Not on file Emotionally Abused: Not on file Physically Abused: Not on file Sexually Abused: Not on file Physically or Sexually Abused: Not on file Housing Instability: Low Risk (01/06/2024) Received from [facility] Housing Stability Vital Sign Unable to Pay [...] HISTORY: Right foot ulcer, with unspecified severity ([facility]). COMPARISON: 03/04/2025 IMPRESSION: Unchanged [...] ulcer, with long-term current use of insulin ([facility]) - Lipid panel; Future - [facility] - [place], [place]; Future 2. Ulcer of right foot with fat layer exposed ([facility]) - collagenase (SantyL) ointment; [...] 2 5. Peripheral artery disease Diabetes mellitus ([facility]) Patient diabetes is uncontrolled. Due to financial restrictions, he is unable to afford insulin which he uses to control blood sugar. Patient's last hemoglobin A1c from April 2025 was 11.5%. Discussed with patient the importance of blood sugar control. Since patient having difficulty affording the cost of medications we will refer patient to the [facility] medical management team fordiabetes to [...] DO 07/06/25 2:46 PM documented in this encounterSouthern [facility] Medical Center08-07-2025 Evaluation note* Diagnosis Onset Date Resolution Status Admit Date Diabetic ulcer of right foot acuteAugust 2024 9:55amOcclusion and stenosis of bilateral carotid arteries acuteAugust 2024 9:55amPAD (peripheral artery disease)acuteAugust 2024 9:55am [facility] Work Phone: [phone]) 448-285307-01-2025 Miscellaneous Notes* Telephone Encounter - Danielle Mastesr CNA - 05/22/2025 2:40 PM EDT ----- [...] Freeman DO * Telephone Encounter - Danielle Mastres CNA - 05/22/2025 2:40 PM EDT Spoke [...] manage his blood sugars. documented in this encounterSouthern [facility] Medical Center07-01-2025 Telephone encounter Note* Telephone Encounter - [...] 1:51 PM EDT To: Art Freeman DO [facility]07-01-2025 Telephone encounter Note* Telephone Encounter - Danielle Masters CNA - 05/22/2025 2:40 PM EDT Spoke with patient, he verbalized understanding. Patient declined the referral to endocrinology, just states he needs his meds [facility]07-01-2025 Telephone encounter Note* Telephone Encounter - Art Freeman DO - 05/22/2025 2:40 PM EDT Attempted to call patient did not answer I did not leave a message. I wanted to make sure from his last visit that he was able to get his insulins to manage his blood sugars. [facility]06-22-2025 Miscellaneous Notes* Telephone Encounter - Art Freeman DO - 05/13/2025 3:07 PM EDT CHANGE TO ACCUCHECK documented in this encounterSouthern [facility] Medical Center06-22-2025 Telephone encounter Note* Telephone Encounter - Art Freeman DO - 05/13/2025 3:07 PM EDT CHANGE TO ACCUCHECK [facility]06-19-2025 Evaluation + Plan note* Assessment & Plan Note - Art Freeman DO - 05/10/2025 12:59 PM EDTAssociated Problem(s): Benign essential HTN Hypertension is stable. Continue with hydrochlorothiazide 12.5 mg daily and lisinopril 10 mg daily. [facility]06-19-2025 Miscellaneous Notes* Assessment & Plan Note - Art Freeman DO - 05/10/2025 12:59 PM EDTAssociated Problem(s): Benign essential HTN Hypertension is stable. Continue with hydrochlorothiazide 12.5 mg daily and lisinopril 10 mg daily. * Assessment & Plan Note - Art Freeman DO - 05/10/2025 12:58 PM EDT Associated Problem(s): Diabetes mellitus ([facility]) Hemoglobin A1c from May 02, [...] mg 1 tablet daily. documented in this encounterSouthern [facility] Medical Center06-19-2025 Evaluation + Plan note* Assessment & Plan Note - Art Freeman DO - 05/10/2025 12:58 PM EDT Associated Problem(s): Diabetes mellitus ([facility]) Hemoglobin A1c from May 02, 2025 was 11.5%. Patient was unable to afford insulin prescriptions at last visit. Prescribed Lantus Solostar insulin pens 30 units twice daily and NovoLog flex pen sliding scale 3 times daily with meals. [facility]06-19-2025 Evaluation + Plan note* Assessment & Plan Note - Art Freeman DO - 05/10/2025 12:57 PM EDTAssociated Problem(s): Chronic midline low back pain without sciatica Reviewed 6 view lumbar x-rays from May 02, 2025. Prescribed celecoxib 100 mg 1 tablet daily. [facility]06-19-2025 History of Present illness Narrative* Art Freeman DO - 05/10/2025 9:30 AM EDT Images from the original note were not included. [facility] [address] [facility] [place] [address] Patient: More Kingsley Jr. Date of : [...] 02/2021 left foot Chronic osteomyelitis of foot ([facility]) 02/2021 left/with draining sinus Dental disease poor repair Diabetes mellitus type 2, controlled ([facility]) 1999 Hyperlipidemia Hypertension PICC (peripherally inserted central catheter) flush 02/2021 Visual impairment glasses Past Surgical History: Procedure Laterality Date AMPUTATION SYMES LOWER EXTREMITY Left 04/18/2021 Performed by Chan Brooke DPM at [facility] AMPUTATION TOEMID FOOT OSTEOTOMY ACHILLES TENOTOMY Left 02/07/2021 Performed by Chan Brooke DPM at [facility] ASPIRATION BONE MARROW BIOPSY BONE MARROW (BONE BIOPSY) Left 03/24/2021 Performed by Chan Brooke DPM at [facility] CLOSURE WOUND LOWER EXTREMITY (DELAYED PRIMARY CLOSURE) Left 03/24/2021 Performed by Chan Brooke DPM at [facility] DEBRIDEMENT FOOT/ANKLE Left 02/07/2021 Performed by Chan Brooke DPM at [facility] EXOSTECTOMY FOOT Right 09/01/2021 Performed by Chan Brooke DPM at [facility] PHACO KELMAN I IMPLANT INTRAOCULAR LENS Right 12/28/2019 Performed by Debra Trejo MD at [facility] REMOVAL HARDWARE FOOT/TOE, AND REMOVAL ANTIBIOTIC SPACER Left 03/24/2021 Performed by Chan Brooke DPM at [facility] TONSILLECTOMY as child Family History Problem [...] and 10 to the basement. Worked at [employer]. Now disabled Social Drivers of Health Financial Resource Strain: Low Risk (01/06/2024) Received from [facility] Overall Financial Resource Strain (CARDIA) Difficulty of Paying Living Expenses: Not hard at all Food Insecurity: No Food Insecurity (05/10/2025) Hunger Screening Food Insecurity - Worry: Never True Food Insecurity - Inability: Never True Transportation Needs: Unmet Transportation Needs (01/06/2024) Received from [facility] PRAPARE - Transportation Lack of Transportation (Medical): Yes Lack of Transportation (Non-Medical): Yes Physical Activity: Inactive (01/06/2024) Received from [facility] Exercise Vital Sign Days of Exercise per Week: 0 days Minutes of Exercise per Session: 0 min Stress: Stress Concern Present (01/06/2024) Received from [facility] [place] [facility] [employer] [facility] - Occupational Stress Questionnaire Feeling of Stress : Very much Social Connections: Socially Isolated (01/06/2024) Received from [facility] Social Connection and Isolation Panel [NHANES] Frequency of Communication with Friends and Family: Never Frequency of Social Gatherings with Friends and Family: Never Attends Gnosticism Services: Never Active Member of Clubs or Organizations: Yes Attends Club or Organization Meetings: Never Marital Status: Interpersonal Safety: Unknown (01/13/2024) Received from [facility] Safety & Environment Fear of Current or Ex-Partner: Not on file Emotionally Abused: Not on file Physically Abused: Not on file Sexually Abused: Not on file Physically or Sexually Abused: Not on file Housing Instability: Low Risk (01/06/2024) Received from [facility] Housing Stability Vital Sign Unable to Pay [...] ulcer, with long-term current use of insulin ([facility]) - lisinopriL (PRINIVIL,ZESTRIL) 10 [...] 100 mg 1 tablet daily. Diabetes mellitus ([facility]) Hemoglobin A1c from May [...] DO 05/10/25 12:59 PM documented in this encounterSouthern [facility] Medical Center06-19-2025 Instructions* Patient Instructions* Art Freeman DO [...] and exercises as given documented in this encounterSouthern Ohio Medical Center06-06-2025 Evaluation + Plan note* Assessment & Plan Note - Art Freeman DO - 04/27/2025 9:18 PM EDT Associated Problem(s): Chronic midline low back pain without sciatica Ordered x-rays of lumbar spine 6 views including flexion and extension views. [facility]06-06-2025 Miscellaneous Notes* Assessment & Plan Note - Art Freeman DO - 04/27/2025 9:18 PM EDTAssociated Problem(s): Chronic midline low back pain without sciatica Ordered x-rays of lumbar spine 6 views including flexion and extension views. * Assessment & Plan Note - Art Freeman DO - 04/27/2025 9:16 PM EDT Associated Problem(s): Diabetes mellitus ([facility]) Last hemoglobin A1c from April 01, [...] level of transaminase elevation documented in this encounterSouthern [facility] Medical Center06-06-2025 Evaluation + Plan note* Assessment & Plan Note - Art Freeman DO - 04/27/2025 9:16 PM EDT Associated Problem(s): Diabetes mellitus ([facility]) Last hemoglobin A1c from April 01, 2025 was 11%. Continue with insulin glargine 30 units nightly, insulin lispro sliding scale coverage before meals. Monitor blood sugars before meals. [facility]06-06-[facility]25 Evaluation + Plan note* Assessment & Plan Note - Art Freeman DO - 04/27/2025 9:14 PM EDTAssociated Problem(s): Benign essential HTN Blood pressure today in normal range. Patient denies any symptoms. Continue with hydrochlorothiazide 12.5 mg daily, lisinopril 10 mg daily. [facility]06-06-[facility] Evaluation + Plan note* Assessment & Plan Note - Art Freeman DO - 04/27/2025 9:13 PM EDTAssociated Problem(s): Fatty liver disease, nonalcoholic Ordered lab work including comprehensive metabolic panel to evaluate for level of transaminase elevation [facility]06-05-2025 History of Present illness Narrative* Art Freeman DO - 04/26/2025 2:00 PM EDT Images from the original note were not included. [facility] [address] [place] [address] Patient: More Kingsley Jr. Date of : [...] 02/2021 left foot Chronic osteomyelitis of foot ([facility]) 02/2021 left/with draining sinus Dental disease poor repair Diabetes mellitus type 2, controlled ([facility] 1999 Hyperlipidemia Hypertension PICC (peripherally inserted central catheter) flush 02/2021 Visual impairment glasses Past Surgical History: Procedure Laterality Date AMPUTATION SYMES LOWER EXTREMITY Left 04/18/2021 Performed by Chan Brooke DPM at [facility] AMPUTATION TOEMID FOOT OSTEOTOMY ACHILLES TENOTOMY Left 02/07/2021 Performed by Chan Brooke DPM at [facility] ASPIRATION BONE MARROW BIOPSY BONE MARROW (BONE BIOPSY) Left 03/24/2021 Performed by Chan Brooke DPM at [facility] CLOSURE WOUND LOWER EXTREMITY (DELAYED PRIMARY CLOSURE) Left 03/24/2021 Performed by Chan Brooke DPM at [facility] DEBRIDEMENT FOOT/ANKLE Left 02/07/2021 Performed by Chan Brooke DPM at [facility] EXOSTECTOMY FOOT Right 09/01/2021 Performed by Chan Brooke DPM at [facility]O KELMAN I IMPLANT INTRAOCULAR LENS Right 12/28/2019 Performed by Debra Trejo MD at [facility] REMOVAL HARDWARE FOOT/TOE, AND REMOVAL ANTIBIOTIC SPACER Left 03/24/2021 Performed by Chan Brooke DPM at [facility] TONSILLECTOMY as child Family History Problem [...] and 10 to the basement. Worked at [employer]. Now disabled Social Drivers of Health Financial Resource Strain: Low Risk (01/06/2024) Received from [facility] Overall Financial Resource Strain (CARDIA) Difficulty of Paying Living Expenses: Not hard at all Food Insecurity: No Food Insecurity (04/26/2025) Hunger Screening Food Insecurity - Worry: Never True Food Insecurity - Inability: Never True Transportation Needs: Unmet Transportation Needs (01/06/2024) Received from [facility] PRAPARE - Transportation Lack of Transportation (Medical): Yes Lack of Transportation (Non-Medical): Yes Physical Activity: Inactive (01/06/2024) Received from [facility] Exercise Vital Sign Days of Exercise per Week: 0 days Minutes of Exercise per Session: 0 min Stress: Stress Concern Present (01/06/2024) Received from [facility] [place] [facility] [employer] [facility] - Occupational Stress Questionnaire Feeling of Stress : Very much Social Connections: Socially Isolated (01/06/2024) Received from [facility] Social Connection and Isolation Panel [NHANES] Frequency of Communication with Friends and Family: Never Frequency of Social Gatherings with Friends and Family: Never Attends Gnosticism Services: Never Active Member of Clubs or Organizations: Yes Attends Club or Organization Meetings: Never Marital Status: Interpersonal Safety: Unknown (01/13/2024) Received from [facility] Safety & Environment Fear of Current or Ex-Partner: Not on file Emotionally Abused: Not on file Physically Abused: Not on file Sexually Abused: Not on file Physically or Sexually Abused: Not on file Housing Instability: Low Risk (01/06/2024) Received from [facility] Housing Stability Vital Sign Unable to Pay [...] ulcer, with long-term current use of insulin ([facility] - TRUE METRIX GLUCOSE [...] daily, lisinopril 10 mg daily. Diabetes mellitus ([facility]) Last hemoglobin A1c from April [...] DO 04/27/25 9:18 PM documented in this encounterSouthern [facility] Medical Center06-05-2025 Instructions* Patient Instructions* Art Freeman DO - 04/26/2025 2:00 PM EDT Get blood work and x-ray of lumbar spine completed before next visit. Follow instructions for medications. Check blood sugars up to 4 times per day and use short acting insulin as directed. Take Lantus 30 units daily documented in this encounterSouthern Ohio Medical Center06-03-2025 History of Present illness Narrative* Sherri Garcia, 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-IN STORE MARKETING REPRESENTATIVE - 04/24/2025 10:30 AM EDTAssociated Order(s): Debridement [...] a 59 y.o. male who present to [facility] for evaluation of 1 ulcer(s) on theright plantar midfoot. Patient established with wound clinic 03/28/2025. Current wound care includes: Vashe soak, cover with Xeroform, secure with roll gauze. Patient is wearing a right tennis shoe, Patient presents with a prosthetic of the left foot. Patient states his risk developer is Dr. Eric Stephenson, [facility]. Patient was seen in the emergency room [...] notes. Patient Active Problem List Diagnosis Sepsis ([facility]) Diabetic ulcer of right midfoot associated with type 2 diabetes mellitus, with muscle involvement without evidence of necrosis ([facility]) Chronic osteomyelitis of left foot with draining sinus ([facility]) Wound, open, foot with complication, left, initial encounter Charcot's joint of foot, left Diabetes mellitus ([facility]) Hyperlipidemia Osteomyelitis of left foot ([facility]) Ulcer of right foot with fat layer exposed ([facility]) History of transmetatarsal amputation of right foot ([facility]) 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 ([facility]) Unstable ankle, right Past Medical History: Diagnosis Date Acid reflux Anemia Arthritis Cataract right lens implant Charcot's joint 02/2021 left foot Chronic osteomyelitis of foot ([facility]) 02/2021 left/with draining sinus Dental disease poor repair Diabetes mellitus type 2, controlled ([facility] 1999 Hyperlipidemia Hypertension PICC (peripherally inserted central catheter) flush 02/2021 Visual impairment glasses Past Surgical History: Procedure Laterality Date AMPUTATION SYMES LOWER EXTREMITY Left 04/18/2021 Performed by Chan Brooke DPM at [facility] AMPUTATION TOEMID FOOT OSTEOTOMY ACHILLES TENOTOMY Left 02/07/2021 Performed by Chan Brooke DPM at [facility] ASPIRATION BONE MARROW BIOPSY BONE MARROW (BONE BIOPSY) Left 03/24/2021 Performed by Chan Brooke DPM at [facility] CLOSURE WOUND LOWER EXTREMITY (DELAYED PRIMARY CLOSURE) Left 03/24/2021 Performed by Chan Brooke DPM at [facility] DEBRIDEMENT FOOT/ANKLE Left 02/07/2021 Performed by Chan Brooke DPM at [facility] EXOSTECTOMY FOOT Right 09/01/2021 Performed by Chan Brooke DPM at [facility] PHACO KELMAN I IMPLANT INTRAOCULAR LENS Right 12/28/2019 Performed by Debra Trejo MD at [facility] REMOVAL HARDWARE FOOT/TOE, AND REMOVAL ANTIBIOTIC SPACER Left 03/24/2021 Performed by Chan Brooke DPM at [facility] TONSILLECTOMY as child Social Drivers of Health Food Insecurity: No Food Insecurity (03/04/2025) Hunger Screening Food Insecurity - Worry: Never True Food Insecurity - Inability: Never True Housing Instability: Low Risk (01/06/2024) Received from [facility] Housing Stability Vital Sign Unable to Pay for Housing in the Last Year: No Number of Places Lived in the Last Year: 1 Unstable Housing in the Last Year: No Transportation Needs: Unmet Transportation Needs (01/06/2024) Received from [facility] PRAPARE - Transportation Lack of Transportation (Medical): Yes Lack of Transportation (Non-Medical): Yes Utility Difficulties: Not on file Interpersonal Safety: Unknown (01/13/2024) Received from [facility] Safety & Environment Fear of Current or Ex-Partner: Not on file Emotionally Abused: Not on file Physically Abused: Not on file Sexually Abused: Not on file Physically or Sexually Abused: Not on file Financial Resource Strain: Low Risk (01/06/2024) Received from [facility] Overall Financial Resource Strain (CARDIA) Difficulty of Paying Living Expenses: Not hard at all Childcare: Low Risk (02/07/2021) Childcare Childcare: No Employment: Low Risk (02/07/2021) Employment Employment: No Purpose - Life: Low Risk (02/07/2021) Purpose - Life Purpose and direction in life: Agree Depression: Not at risk (03/13/2024) Received from [facility] PHQ-2 Patient Health Questionnaire-2 Score: 0 Alcohol Use: Not At Risk (01/06/2024) Received from [facility] AUDIT-C Frequency of Alcohol Consumption: Monthly or less Average Number of Drinks: Patient does not drink Frequency of Binge Drinking: Never Tobacco Use: Low Risk (04/11/2025) Patient History Smoking Tobacco Use: Never Smokeless Tobacco Use: Never Passive Exposure: Not on file Social Connections: Socially Isolated (01/06/2024) Received from [facility] Social Connection and Isolation Panel [NHANES] Frequency of Communication with Friends and Family: Never Frequency of Social Gatherings with Friends and Family: Never Attends Gnosticism Services: Never Active Member of Clubs or Organizations: Yes Attends Club or Organization Meetings: Never Marital Status: Physical Activity: Inactive (01/06/2024) Received from [facility] Exercise Vital Sign Days of Exercise per Week: 0 days Minutes of Exercise per Session: 0 min Stress: Stress Concern Present (01/06/2024) Received from [facility] [place] of Occupational Health - Occupational Stress Questionnaire [...] debridement Post debridement 04/24/25 1100 Site Assessment Green Level;Red 04/24/25 1100 Debi-wound Assessment Callous;Dry 04/24/25 1100 [...] Risks discussed: Yes Debridement Details: Performed by: BURNER HAND Type: Sharp Level: Subcutaneous Tissue, Devitalized tissue [...] short term goal is wound compliance. Our fpc goal is wound closure. The patient was [...] CWS, NAVNEET [facility]:[phone] SCOTT Vaughn 03/28/25 1311 SCOTT Vaughn 03/28/25 1619 SCOTT Vaughn 04/11/25 1218 SCOTT Vaughn 04/24/25 1202 documented in this encounterMount Ascutney HospitalTimely Network [id number] Instructions* Patient Instructions* Sulma Humphreys RN - [...] Description small Serosanginous yellow documented in this encounter[facility] Nurse Note* Robbin Conti RN - 04/20/2025 11:02 AM EDT 1102 Spoke to patient to give procedure day instructions. Patient states he was told it was denied . Attempted to get clarification, but was unable to. Phone number to scheduling office provided to patient so that he can tell them the same thing I was told. No instructions given. [facility]05-30-2025 Nurse Note* Robbin Conti RN - 04/20/2025 11:02 AM EDT 1102 Spoke to patient to give procedure day instructions. Patient states he was told it was denied . Attempted to get clarification, but was unable to. Phone number to scheduling office provided to patient so that he can tell them the same thing I was told. No instructions given. documented in this encounterAdams [facility] Hospital05-28-2025 Telephone encounter Note * Telephone Encounter - Tamara Goncalves RN - 04/18/2025 3:21 PM EDT G-POEM for date of service 04/25/2025. Appeal with all information including letter, study, JAMIN notes, GES result, EGG result, EGD result,CT result, faxed to [employer] Dept at fax [phone] with confirmation. Appeal also mailed out to [employer]) to the address provided. Copy placed in shared clinical office filing cabinet. [facility] Work Phone: [phone]) 165-670205-28-2025 Miscellaneous Notes* Telephone Encounter - Tamara Goncalves RN - 04/18/2025 3:21 PM EDT G-POEM for date of service 04/25/2025. Appeal with all information including letter, study, JAMIN notes, GES result, EGG result, EGD result,CT result, faxed to [employer] Dept at fax [phone] with confirmation. Appeal also mailed out to [employer]/Appeals Dept) to the address provided. Copy placed in shared clinical office filing cabinet. documented in this encounterAdams County Hospital05-21-2025 History of Present illness Narrative* Sherri Garcia, 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-IN STORE MARKETING REPRESENTATIVE - 04/11/2025 10:40 AM EDTAssociated Order(s): Debridement Post-Procedure Diagnose(s): Diabetic ulcer of right midfoot associated with type 2 diabetes mellitus, with muscle involvement without evidence of necrosis ([facility]) Images from the original note were not included. Wound Care Progress Note Patient: More Kingsley Jr. Date of : 1965 Chief Complaint: Right foot ulcer, follow up Subjective/HPI: More is a 59 y.o. male who present to [facility] for evaluation of 1 ulcer(s) on theright plantar midfoot. Patient established with wound clinic 03/28/2025. Current wound care includes: Vashe soak, cover with Xeroform, secure with roll gauze. Patient is wearing a right Darco off-loading shoe, Patient presents with a prosthetic of the left foot. Patient states he has been to Dr. Eric Stephenson, podiatry, in [facility]. Patient was seen in the emergency room [...] notes. Patient Active Problem List Diagnosis Sepsis ([facility]) Diabetic ulcer of right midfoot associated with type 2 diabetes mellitus, with muscle involvement without evidence of necrosis ([facility]) Chronic osteomyelitis of left foot with draining sinus ([facility]) Wound, open, foot with complication, left, initial encounter Charcot's joint of foot, left Diabetes mellitus ([facility]) Hyperlipidemia Osteomyelitis of left foot ([facility]) Ulcer of right foot with fat layer exposed ([facility]) History of transmetatarsal amputation of right foot ([facility]) 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 ([facility]) Unstable ankle, right Past Medical History: Diagnosis Date Acid reflux Anemia Arthritis Cataract right lens implant Charcot's joint 02/2021 left foot Chronic osteomyelitis of foot ([facility]) 02/2021 left/with draining sinus Dental disease poor repair Diabetes mellitus type 2, controlled ([facility] 1999 Hyperlipidemia Hypertension PICC (peripherally inserted central catheter) flush 02/2021 Visual impairment glasses Past Surgical History: Procedure Laterality Date AMPUTATION SYMES LOWER EXTREMITY Left 04/18/2021 Performed by Chan Brooke DPM at [facility] AMPUTATION TOEMID FOOT OSTEOTOMY ACHILLES TENOTOMY Left 02/07/2021 Performed by Chan Brooke DPM at [facility] ASPIRATION BONE MARROW BIOPSY BONE MARROW (BONE BIOPSY) Left 03/24/2021 Performed by Chan Brooke DPM at [facility] CLOSURE WOUND LOWER EXTREMITY (DELAYED PRIMARY CLOSURE) Left 03/24/2021 Performed by Chan Brooke DPM at [facility] DEBRIDEMENT FOOT/ANKLE Left 02/07/2021 Performed by Chan Brooke DPM at [facility] EXOSTECTOMY FOOT Right 09/01/2021 Performed by Chan Brooke DPM at [facility] PHACO KELMAN I IMPLANT INTRAOCULAR LENS Right 12/28/2019 Performed by Debra Trejo MD at [facility] REMOVAL HARDWARE FOOT/TOE, AND REMOVAL ANTIBIOTIC SPACER Left 03/24/2021 Performed by Chan Brooke DPM at [facility] TONSILLECTOMY as child Social Drivers of Health Food Insecurity: No Food Insecurity (03/04/2025) Hunger Screening Food Insecurity - Worry: Never True Food Insecurity - Inability: Never True Housing Instability: Low Risk (01/06/2024) Received from [facility] Housing Stability Vital Sign Unable to Pay for Housing in the Last Year: No Number of Places Lived in the Last Year: 1 Unstable Housing in the Last Year: No Transportation Needs: Unmet Transportation Needs (01/06/2024) Received from [facility] PRAPARE - Transportation Lack of Transportation (Medical): Yes Lack of Transportation (Non-Medical): Yes Utility Difficulties: Not on file Interpersonal Safety: Unknown (01/13/2024) Received from [facility] [place] [facility] Fear of Current or Ex-Partner: Not on file Emotionally Abused: Not on file Physically Abused: Not on file Sexually Abused: Not on file Physically or Sexually Abused: Not on file Financial Resource Strain: Low Risk (01/06/2024) Received from [facility] Overall Financial Resource Strain (CARDIA) Difficulty of Paying Living Expenses: Not hard at all Childcare: Low Risk (02/07/2021) Childcare Childcare: No Employment: Low Risk (02/07/2021) Employment Employment: No Purpose - Life: Low Risk (02/07/2021) Purpose - Life Purpose and direction in life: Agree Depression: Not at risk (03/13/2024) Received from [facility] PHQ-2 Patient Health Questionnaire-2 Score: 0 Alcohol Use: Not At Risk (01/06/2024) Received from [facility] AUDIT-C Frequency of Alcohol Consumption: Monthly or less Average Number of Drinks: Patient does not drink Frequency of Binge Drinking: Never Tobacco Use: Low Risk (03/28/2025) Patient History Smoking Tobacco Use: Never Smokeless Tobacco Use: Never Passive Exposure: Not on file Social Connections: Socially Isolated (01/06/2024) Received from [facility] Social Connection and Isolation Panel [NHANES] Frequency of Communication with Friends and Family: Never Frequency of Social Gatherings with Friends and Family: Never Attends Gnosticism Services: Never Active Member of Clubs or Organizations: Yes Attends Club or Organization Meetings: Never Marital Status: Physical Activity: Inactive (01/06/2024) Received from [facility] Exercise Vital Sign Days of Exercise per Week: 0 days Minutes of Exercise per Session: 0 min Stress: Stress Concern Present (01/06/2024) Received from [facility] [place] of Occupational Health - Occupational Stress Questionnaire [...] debridement Post debridement 04/11/25 1053 Site Assessment Moist;Green Level;Yellow;Red 04/11/25 1041 Debi-wound Assessment Dry;Callous;Maceration 04/11/25 1041 [...] Risks discussed: Yes Debridement Details: Performed by: BURNER HAND Type: Sharp Level: Subcutaneous Tissue, Devitalized tissue [...] with muscle involvement without evidence of necrosis ([facility]) 2. History of transmetatarsal amputation of right foot ([facility]) 3. 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 ([facility]) 4. Wound, open, foot with [...] roll gauze Off-load with a cut out Danube foam pad Change daily Renewed prescription written for Augmentin [id number] mg b.i.d. for 10 days, dispensed 20. Referral to Dr. Stephenson's office for off-loading KASHIA boot fitting Patient instructed in diabetic foot ulcer care to right and foot. Patient verbalize ability to perform wound care. Patient verbalized understanding. We will continue to follow closely to avoid any complications or infection. Our short term goal is wound compliance. Our shoe repairman goal is wound closure. The patient was [...] ALBARO, NAVNEET [facility]:[phone] SCOTT Vaughn 03/28/25 1311 SCOTT Vaughn 03/28/25 1619 SCOTT Vaughn 04/11/25 1218 documented in this encounterMount Ascutney HospitaliBid2Save05-21-2025 Instructions* Patient Instructions* Seema Hassan RN - [...] Description small Serosanginous yellow documented in this encounterBarberton Citizens HospitalMultiplicom Select Specialty [id number] NoteHNO ID: [id number] Author: JEROME DEL TORO, DO Service: ? Author Type: Physician Type: Progress Notes Filed: 04/10/2025 10:33 Note Text: [facility] [place] Gastroparesis/Dysmotility Consultation SERVICE DATE: 04/10/2025 SERVICE TIME: 10:04 AM PRIMARY CARE PHYSICIAN: No primary care provider on file. Imad Asaad [address] [address] My final recommendations will be communicated back [...] obtained. NAME: More Kingsley Jr. CLINIC NO: [id number] DATE OF SERVICE: April 10, 2025 This [...] to (more content not included)... [facility]05-20-2025 NoteHNO ID: [id number] Author: ANDREY ESTRELLA MA Service: ? Author Type: Audio Engineer Type: Progress Notes Filed: 04/10/2025 10:33 Note Text: What is the reason for your visit today? Consult /empties Who is your referring physician? Tracy Yoon Are you having poor oral intake? YES Have you had unintentional weight loss of 15 lbs/7 Kg in the last 3-6 months? NO Bowels: regular Wound: clean AND dry Temperature: No Drains: [facility]05-20-2025 NoteHNO ID: [id number] Author: COURTNEY GLOVER PSYD Service: ? Author [...] diffuse bodily pain, and chronic headaches/migraines since board runner. He denies any significant psychiatric history and [...] was referred to behavioral health by Dr. Figuereod for evaluation and treatment of lifestyle and [...] Tends to sleep on his side. [x]Headaches-since board runner []Depression-denied ME (more content not included)...[facility]05-20-2025 NoteHNO ID: [id number] Author: ART FIGUEREDO, DO Service: ? Author [...] Medications - Does the patient see a silk screen painter for chronic pain?No - Is the [...] - Has the patient met with a closing coordinator for diet recommendations with Gastroparesis? No - [...] of an (more content not included)...[facility]05-15-2025 Telephone encounter Note* Telephone Encounter - Shena [...] back Shena Dent RN April 05, 2025 [facility]05-15-2025 Miscellaneous Notes* Telephone Encounter - Shena [...] RN April 05, 2025 documented in this encounterAdams County Hospital05-07-2025 History of Present illness Narrative* Sherri Gurvinder Garcia, 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-IN STORE MARKETING REPRESENTATIVE - 03/28/2025 10:40 AM EDTAssociated Order(s): Debridement Post-Procedure Diagnose(s): Diabetic ulcer of right midfoot associated with type 2 diabetes mellitus, with muscle involvement without evidence of necrosis ([facility]); History of transmetatarsal amputation of right foot ([facility]) Images from the original note were not included. Wound Care Progress Note Patient: More Kingsley . Date of : 1965 Chief Complaint: Right foot ulcer New patient evaluation Subjective/HPI: More is a 59 y.o. male who present to [facility] for evaluation of 1 [...] AUREUS METHICILLIN RESISTANT VARIANT Abnormal Resulting Agency [facility] Today's reported Blood sugar: Patient [...] notes. Patient Active Problem List Diagnosis Sepsis ([facility]) Diabetic ulcer of left midfoot associated with type 2 diabetes mellitus, with necrosis of bone ([facility]) Chronic osteomyelitis of left foot with draining sinus ([facility]) Wound, open, foot with complication, left, initial encounter Charcot's joint of foot, left Diabetes mellitus ([facility]) Hyperlipidemia Osteomyelitis of left foot ([facility]) Ulcer of right foot with fat layer exposed ([facility]) History of transmetatarsal amputation of right foot ([facility]) Past Medical History: Diagnosis Date Acid reflux Anemia Arthritis Cataract right lens implant Charcot's joint 02/2021 left foot Chronic osteomyelitis of foot ([facility]) 02/2021 left/with draining sinus Dental disease poor repair Diabetes mellitus type 2, controlled ([facility] 1999 Hyperlipidemia Hypertension PICC (peripherally inserted central catheter) flush 02/2021 Visual impairment glasses Past Surgical History: Procedure Laterality Date AMPUTATION SYMES LOWER EXTREMITY Left 04/18/2021 Performed by Chan Brooke DPM at [facility] AMPUTATION TOEMID FOOT OSTEOTOMY ACHILLES TENOTOMY Left 02/07/2021 Performed by Chan Brooke DPM at [facility] ASPIRATION BONE MARROW BIOPSY BONE MARROW (BONE BIOPSY) Left 03/24/2021 Performed by Chan Brooke DPM at [facility] CLOSURE WOUND LOWER EXTREMITY (DELAYED PRIMARY CLOSURE) Left 03/24/2021 Performed by Chan Brooke DPM at [facility] DEBRIDEMENT FOOT/ANKLE Left 02/07/2021 Performed by Chan Brooke DPM at [facility] EXOSTECTOMY FOOT Right 09/01/2021 Performed by Chan Brooke DPM at [facility]ACO KELMAN I IMPLANT INTRAOCULAR LENS Right 12/28/2019 Performed by Debra Treoj MD at [facility] REMOVAL HARDWARE FOOT/TOE, AND REMOVAL ANTIBIOTIC SPACER Left 03/24/2021 Performed by Chan Brooke DPM at [facility] TONSILLECTOMY as child Social Drivers of Health Food Insecurity: No Food Insecurity (03/04/2025) Hunger Screening Food Insecurity - Worry: Never True Food Insecurity - Inability: Never True Housing Instability: Low Risk (01/06/2024) Received from [facility] Housing Stability Vital Sign Unable to Pay for Housing in the Last Year: No Number of Places Lived in the Last Year: 1 Unstable Housing in the Last Year: No Transportation Needs: Unmet Transportation Needs (01/06/2024) Received from [facility] PRAPARE - Transportation Lack of Transportation (Medical): Yes Lack of Transportation (Non-Medical): Yes Utility Difficulties: Not on file Interpersonal Safety: Unknown (01/13/2024) Received from [facility] [place] [facility] Fear of Current or Ex-Partner: Not on file Emotionally Abused: Not on file Physically Abused: Not on file Sexually Abused: Not on file Physically or Sexually Abused: Not on file Financial Resource Strain: Low Risk (01/06/2024) Received from [facility] Overall Financial Resource Strain (CARDIA) Difficulty of Paying Living Expenses: Not hard at all Childcare: Low Risk (02/07/2021) Childcare Childcare: No Employment: Low Risk (02/07/2021) Employment Employment: No Purpose - Life: Low Risk (02/07/2021) Purpose - Life Purpose and direction in life: Agree Depression: Not at risk (03/13/2024) Received from [facility] PHQ-2 Patient Health Questionnaire-2 Score: 0 Alcohol Use: Not At Risk (01/06/2024) Received from [facility] AUDIT-C Frequency of Alcohol Consumption: Monthly or less Average Number of Drinks: Patient does not drink Frequency of Binge Drinking: Never Tobacco Use: Low Risk (03/04/2025) Patient History Smoking Tobacco Use: Never Smokeless Tobacco Use: Never Passive Exposure: Not on file Social Connections: Socially Isolated (01/06/2024) Received from [facility] Social Connection and Isolation Panel [NHANES] Frequency of Communication with Friends and Family: Never Frequency of Social Gatherings with Friends and Family: Never Attends Gnosticism Services: Never Active Member of Clubs or Organizations: Yes Attends Club or Organization Meetings: Never Marital Status: Physical Activity: Inactive (01/06/2024) Received from [facility] Exercise Vital Sign Days of Exercise per Week: 0 days Minutes of Exercise per Session: 0 min Stress: Stress Concern Present (01/06/2024) Received from [facility] [place] of Occupational Health - Occupational Stress Questionnaire [...] Risks discussed: Yes Debridement Details: Performed by: BURNER HAND Type: Sharp Level: Subcutaneous Tissue, Devitalized tissue [...] with muscle involvement without evidence of necrosis ([facility]) 2. History of transmetatarsal amputation of right foot ([facility]) 3. Visit for wound check [...] roll gauze Off-load with a cut out Danube foam pad Change daily Discussed various offloading [...] short term goal is wound compliance. Our fpc goal is wound closure. The patient was [...] CWS, COCN [facility]:[phone] SCOTT Vaughn 03/28/25 1311 SCOTT Vaughn 03/28/25 1619 documented in this encounterSouthern Ohio Medical Center05-07-2025 Instructions* Patient Instructions* Seema Hassan RN - [...] Description moderate Serosanginous yellow documented in this encounterSouthern Ohio Medical Center12-31-2024 Telephone encounter Note* Telephone Encounter - Leonard Cadet - 11/21/2024 3:[address] Yoon's office phones requesting office note from October 24 When completed, please fax to [phone] Leonard Cadet [facility]12-31-2024 Miscellaneous Notes* Telephone Encounter - Leonard Cadet - 11/21/2024 3:[address] Yoon's office phones requesting office note from October 24 When completed, please fax to [phone] Leonard Cadet documented in this encounterAdams County Hospital12-03-2024 NoteHNO ID: [id number] Author: DAVIDA PRICE MD Service: ? Author Type: Physician Type: Progress Notes Filed: 05/20/2025 17:03 Note Text: Summary: Patient not seen Patient was not seen. Miscommunication between my office and the patient. I was out of the office. Will be rescheduled.[facility]12-03-2024 History of Present illness Narrative* Davida Price MD - 10/24/2024 4:57 PM ESTSummary: Patient not seen Patient was not seen. Miscommunication between my office and the patient. I was out of the office. Will be rescheduled. documented in this encounterAdams County Hospital08-01-2024 Telephone encounter Note * Telephone Encounter - Deonna Patel - 06/22/2024 6:55 AM EDT Gp ref and ges in scanned docs Needs registration [facility]08-01-2024 Miscellaneous Notes* Telephone Encounter - Deonna Patel - 06/22/2024 6:55 AM EDT Gp ref and ges in scanned docs Needs registration documented in this encounterAdams County Hospital06-18-2024 Evaluation note* Author Tracy Yoon [facility]rb[facility] HospitalAuthoredJunjacques 2023 [id number] man with recurrent nausea and vomiting came today for follow-up + Recurrent nausea and vomiting associated with abdominal pain. EGD on 02/03/2024 showed gastritis, gastric biopsies were negative for H. pylori, duodenal biopsies were negative for celiac disease. Symptoms are not responsive to PPI + Uncontrolled diabetes Will arrange for CT abdomen/pelvis. Will arrange for gastric emptying study. [facility] Work Phone: 1(911) 706-262803-14-2024 Procedure noteMercy Health Urbana Hospital01-04-2024 Evaluation note* Encounter Date Diagnosis Assessment [...] is to continue with famotine and pantoprazole [employer] Other 12-18-2023 Evaluation note* Encounter Date Diagnosis [...] - L90.9) recommend f/u with Dr. Stephenson [employer] Other 10-04-2023 Evaluation note* Encounter Date Diagnosis [...] map diet Pt RTO in 3 months [employer] Other 04-04-2023 Evaluation note* Encounter Date Diagnosis [...] Feb,ERD (gastroesophageal reflux disease) (ICD-10 - K21.9) [employer] Other 10-04-2022 Evaluation note* Encounter Date Diagnosis Assessment Notes Treatment Notes Treatment Clinical Notes Aug, GERD (gastroesophageal reflux di sease) (ICD-10 - K21.9) Stop Pantoprazole Start Omeprazole 40mg bid, 30 minutes prior to the first meal and last meal of the day. Follow up in 6 months Aug,Nausea & vomiting (ICD-10 - R11.2) [facility] [employer] Other Chief complaint+Reason for visit Narrative* Chief Complaint Referral Cheng mayberry DM 6 week follow upReason for VisitNausea and vomiting [facility] Work Phone: Evaluation noteNo InformationNortLehigh Valley Hospital[facility] [employer] Other Evaluation note* Diagnosis Onset Date Resolution Status Nausea and vomiting acute [facility] Work Phone: Evaluation note* Diagnosis Diabetic ulcer of right midfoot associated with type 2 diabetes mellitus, with muscle involvement without evidence of necrosis ([facility])- Primary History of transmetatarsal amputation of right foot ([facility]) Visit for wound check [facility] Diagnosis Diabetic ulcer of right midfoot associated with type 2 diabetes mellitus, with muscle involvement without evidence of necrosis ([facility])- Primary History of transmetatarsal amputation of right foot ([facility]) 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 ([facility]) Wound, open, foot with complication, left, initial encounter Unstable ankle, right [facility]* Diagnosis Benign essential HTN- Primary Type 2 diabetes mellitus with foot ulcer, with long-term current use of insulin (CMS-HCC) Chronic midline low back pain without sciatica Fatty liver disease, nonalcoholic Visit for wound check Hyperglycemia Other abnormal glucose Gastroesophageal reflux disease, unspecified whether esophagitis present [facility]* Diagnosis Diabetic ulcer of right midfoot associated with type 2 diabetes mellitus, with muscle involvement without evidence of necrosis ([facility])- Primary 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 ([facility]) [facility]* Diagnosis Benign essential HTN- Primary [...] unspecified type [facility]* Diagnosis Benign essential HTN- Primary [...] insulin (CMS-HCC) [facility]* Diagnosis Benign essential HTN- Primary [...] (CMS-HCC)- Primary [facility]* Diagnosis Gastroparesis- Primary documented in this encounter [facility] noteNo assessment information availableLima Memorial Hospital Work Phone: Evaluation note* Diagnosis Benign essential HTN- Primary Type 2 diabetes mellitus with foot ulcer, with long-term current use of insulin (CMS-HCC) Chronic midline low back pain without sciatica Fatty liver disease, nonalcoholic Visit for wound check Hyperglycemia Other abnormal glucose Gastroesophageal reflux disease, unspecified whether esophagitis present Type 2 diabetes mellitus with foot ulcer, with long-term current use of insulin ([facility]) Benign essential HTN Gastroesophageal reflux disease, unspecified whether esophagitis present Chronic midline low back pain without sciatica Encounter for screening for malignant neoplasm of prostate Fatigue, unspecified type Ulcer of right foot with fat layer exposed ([facility] Primary Type 2 diabetes mellitus with foot ulcer, with long-term current use of insulin ([facility]) Hyperlipidemia, unspecified hyperlipidemia type Gastroesophageal reflux disease, unspecified whether esophagitis present Peripheral artery disease Type 2 diabetes mellitus with foot ulcer, with long-term current use of insulin ([facility]) documented in this [facility]* Diagnosis Benign essential HTN- Primary Type 2 diabetes mellitus with foot ulcer, with long-term current use of insulin ([facility]) Chronic midline low back pain without sciatica Fatty liver disease, nonalcoholic Visit for wound check Hyperglycemia Other abnormal glucose Gastroesophageal reflux disease, unspecified whether esophagitis present Type 2 diabetes mellitus with foot ulcer, with long-term current use of insulin ([facility]) Benign essential HTN Gastroesophageal reflux disease, unspecified whether esophagitis present Chronic midline low back pain without sciatica Encounter for screening for malignant neoplasm of prostate Fatigue, unspecified type Ulcer of right foot with fat layer exposed ([facility])- Primary Type 2 diabetes mellitus with foot ulcer, with long-term current use of insulin ([facility]) Hyperlipidemia, unspecified hyperlipidemia type Gastroesophageal reflux disease, unspecified whether esophagitis present Peripheral artery disease documented in this [facility] Diagnosis Benign essential HTN- Primary Type 2 diabetes mellitus with foot ulcer, with long-term current use of insulin ([facility]) Chronic midline low back pain without sciatica Fatty liver disease, nonalcoholic Visit for wound check Hyperglycemia Other abnormal glucose Gastroesophageal reflux disease, unspecified whether esophagitis present Type 2 diabetes mellitus with foot ulcer, with long-term current use of insulin ([facility]) Benign essential HTN Gastroesophageal reflux disease, unspecified whether esophagitis present Chronic midline low back pain without sciatica Encounter for screening for malignant neoplasm of prostate Fatigue, unspecified type Ulcer of right foot with fat layer exposed ([facility])- Primary Type 2 diabetes mellitus with foot ulcer, with long-term current use of insulin ([facility]) Hyperlipidemia, unspecified hyperlipidemia type Gastroesophageal reflux disease, unspecified whether esophagitis present Peripheral artery disease Type 2 diabetes mellitus with other circulatory complication, with long-term current use of insulin([facility])- Primary documented in this [facility]* Diagnosis Benign essential HTN- Primary Type 2 diabetes mellitus with foot ulcer, with long-term current use of insulin ([facility]) Chronic midline low back pain without sciatica Fatty liver disease, nonalcoholic Visit for wound check Hyperglycemia Other abnormal glucose Gastroesophageal reflux disease, unspecified whether esophagitis present Type 2 diabetes mellitus with foot ulcer, with long-term current use of insulin ([facility]) Benign essential HTN Gastroesophageal reflux disease, unspecified whether esophagitis present Chronic midline low back pain without sciatica Encounter for screening for malignant neoplasm of prostate Fatigue, unspecified type Ulcer of right foot with fat layer exposed ([facility])- Primary Type 2 diabetes mellitus with foot ulcer, with long-term current use of insulin ([facility]) Hyperlipidemia, unspecified hyperlipidemia type Gastroesophageal reflux disease, unspecified whether esophagitis present Peripheral artery disease Type 2 diabetes mellitus with other circulatory complication, with long-term current use of insulin([facility])- Primary Type 2 diabetes mellitus with foot ulcer, with long-term current use of insulin ([facility]) Benign essential HTN Mixed hyperlipidemia due to type 2 diabetes mellitus ([facility]) Gastroesophageal reflux disease, unspecified whether esophagitis present Chronic midline low back pain without sciatica Ulcer of right foot with fat layer exposed ([facility]) documented in this encounter [facility] Diagnosis Benign essential HTN- Primary Type 2 diabetes mellitus with foot ulcer, with long-term current use of insulin ([facility]) Chronic midline low back pain without sciatica Fatty liver disease, nonalcoholic Visit for wound check Hyperglycemia Other abnormal glucose Gastroesophageal reflux disease, unspecified whether esophagitis present Type 2 diabetes mellitus with foot ulcer, with long-term current use of insulin ([facility]) Benign essential HTN Gastroesophageal reflux disease, unspecified whether esophagitis present Chronic midline low back pain without sciatica Encounter for screening for malignant neoplasm of prostate Fatigue, unspecified type Ulcer of right foot with fat layer exposed ([facility])- Primary Type 2 diabetes mellitus with foot ulcer, with long-term current use of insulin ([facility]) Hyperlipidemia, unspecified hyperlipidemia type Gastroesophageal reflux disease, unspecified whether esophagitis present Peripheral artery disease 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 ([facility]) [E11.628, L84]- Primary documented in this encounter [facility] Diagnosis Benign essential HTN- Primary Type 2 diabetes mellitus with foot ulcer, with long-term current use of insulin ([facility]) Chronic midline low back pain without sciatica Fatty liver disease, nonalcoholic Visit for wound check Hyperglycemia Other abnormal glucose Gastroesophageal reflux disease, unspecified whether esophagitis present Type 2 diabetes mellitus with foot ulcer, with long-term current use of insulin ([facility]) Benign essential HTN Gastroesophageal reflux disease, unspecified whether esophagitis present Chronic midline low back pain without sciatica Encounter for screening for malignant neoplasm of prostate Fatigue, unspecified type Ulcer of right foot with fat layer exposed ([facility])- Primary Type 2 diabetes mellitus with foot ulcer, with long-term current use of insulin ([facility]) Hyperlipidemia, unspecified hyperlipidemia type Gastroesophageal reflux disease, unspecified whether esophagitis present Peripheral artery disease Ulcer of right foot with fat layer exposed ([facility])- Primary documented in this encounter [facility] Diagnosis Benign essential HTN- Primary Type 2 diabetes mellitus with foot ulcer, with long-term current use of insulin ([facility]) Chronic midline low back pain without sciatica Fatty liver disease, nonalcoholic Visit for wound check Hyperglycemia Other abnormal glucose Gastroesophageal reflux disease, unspecified whether esophagitis present Type 2 diabetes mellitus with foot ulcer, with long-term current use of insulin ([facility]) Benign essential HTN Gastroesophageal reflux disease, unspecified whether esophagitis present Chronic midline low back pain without sciatica Encounter for screening for malignant neoplasm of prostate Fatigue, unspecified type Ulcer of right foot with fat layer exposed ([facility])- Primary Type 2 diabetes mellitus with foot ulcer, with long-term current use of insulin ([facility]) Hyperlipidemia, unspecified hyperlipidemia type Gastroesophageal reflux disease, unspecified whether esophagitis present Peripheral artery disease Gastroesophageal reflux disease, unspecified whether esophagitis present- Primary Type 2 diabetes mellitus with foot ulcer, with long-term current use of insulin ([facility]) Benign essential HTN Chronic midline low back pain without sciatica Mixed hyperlipidemia due to type 2 diabetes mellitus ([facility]) documented in this encounter [facility] note Author Tracy [facility] February 03, 2024 2:08pmNote Date/TimeMarch 2023 2:08pm[place] [address] Gastroenterology H&P Signed Patient: More Kingsley MR#: [id number] : 1965 Acct:[id number] Age/Sex: 58 / M Adm Date: 4 Loc: Room: Type: [facility] Attending Dr: Tracy Yoon MD Copies [...] signed by Tracy Yoon MD> 02/03/24 1404 [facility] Work Phone: History general Narrative - Reported* Type Description Date Medical History high blood pressure Medical Historyhigh cholesterolMedical Historydiabetes mallitusSurgical History toes removed on right footSurgical Historyleft footSurgical Historyright eye [facility] [employer] Other History general Narrative - Reported* Type Description Date Medical History high blood pressure Medical Historyhigh cholesterolMedical Historydiabetes mellitusMedical History peripheral neuropathyMedical Historyfatty liverMedical Historyretinopathy Surgical Historytoes removed on right footSurgical Historyleft footSurgical Historyright eyeHospitalization HistoryFoot [employer] Other InstructionsNot on filedocumented in this encounter [...] for referral (narrative)No reason for referral information availableLima Memorial Hospital Work Phone: Reason for visit Narrativereferral Cheng Staples, New patient Type 2IDDM apt with [employer] 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, 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, BC-ADMNort [employer] Other Summary Purpose Family History No Family [...] 8:18 PMCode StatusDate ActivatedDate InactivatedCommentsFull Code - Lffouhshte39/15/2020 7:21 PM11/21/2020 10:03 PMTypeDate RecordedPatient RepresentativeExplanationAdvance Directives and Living Will11/06/2020 8:18 PM Code StatusDate ActivatedDate InactivatedCommentsFull Code - Unverified 11/05/2020 7:21 PM11/21/2020 10:03 PMTypeDate RecordedPatient Signwriter ExplanationAdvance Directives and Living Will12/19/2020 8:18 PMTypeDate [...] retinopathy type (HCC) Palak Arora MD [address] [place] [address] Reason Eval and treat/ Food allergy testing. Diagnosis 1 Nausea & vomiting (R 11.2) Referral Organization [facility] Referring Provider First Name Amor Referring Provider Last Name Dichloe Referring Provider Specialty Gastroenter ology Referred Organization Unknown Facility Referred Provider Specialty Allergy/Immu nology Referral Priority Routine Reason DIABETES MANAGEMENT Diagnosis 1 Diabetes mellitus ty pe 2 with complications (E11.8) Referral Organization [facility] Referring Provider First Name Sebastián Referring Provider [...] HOSPITALIST DISCHARGE SUMMARY Patient: More Kingsley Account: [id number] Admitted: 11/05/2020 Discharge Date/Time: 11/21/2020 Clinical Summary [...] Inpatient consult to Endocrinology Inpatient consult to Domestic Technician Inpatient consult to Dietitian Inpatient consult to [...] Discharge Diet: Oral nutrition supplements Tyree; Tyree Moclips At dinner Oral nutrition supplements Tyree; Tyree [...] Physician(s) Family: Cheng Staples CNP, , Address: [address] [place] [id number] Follow Up: [facility] [address] [facility] [id number] Schedule an appointment as soon as possible for a visit in 2 week(s) Dr[facility] Arabella [facility] Address: Servicing Counties: [facility] [place], [place], [place], [place], [place], [place], [facility] [phone] Patient instructions, including activity, were given to [...] sent through Care Everywhere. * Wound Check (Sami) documented in this encounter History of Present [...] present. Principal Problem: Secondary DM with DKA ([facility]) Active Problems: Type 2 diabetes mellitus with retinopathy of both eyes, with long-term current use of insulin ([facility]) * Joan Trejo LISW - 11/21/2020 12:27 PM EST SIMPLE DISCHARGE Date: 11/21/2020 Time: 12:27 PM Patient Name: More Kingsley Jr. Date of : 1965 Sex: Male Patient has him home vac on . He will get his last antibiotic dose early tonight before discharge. [facility] will deliver antibiotics this evening to patient's home. [facility] will start care on11/23/2020 around 0900. [facility] RN will contact patient this evening to confirm time. Home care orderssent to Arturo at [facility]. He will contact this worker if he does not receive them. Discharge Planning Living Arrangements: Alone Support Systems: Children Type of Residence: Private residence Prior to Admission Home Care Services: No Current Home Equipment: None Regulatory Documentation: Medicare IM Regulatory Documentation Status: Signed Signed: Self * Marcella Bell MD - 11/20/2020 6:47 PM EST Patient Name: More Kingsley Jr. Admit Date: MR #: [id number] : 1965 Physicians: Cheng Staples CNP (Family); No ref. provider found (Referring) Assessment: Patient with 1. Left foot abscess, with MSSA 2. Osteomyelitis with MSSA 3. Uncontrolled diabetes. 4. Abdominal pain. 5. Constipation. Plan. Continue patient on current therapyn. Continue patient on IV cefazolin. I reviewed labs, including cultures, with MSSA, and be strep. I appreciate risk developer evaluation. Patient needs incision and drainage of left foot abscess Dressing according to risk developer recommendation Endocrinology evaluation for adequate blood sugar [...] tablet, 1 tablet, Oral, Q4H PRN, Jean Fraley MD, 1 tablet at 11/20/20 1827 pantoprazole [...] mL/hr, Intravenous, PRN, Tanja Whitmore, [facility],PharmD, New Bag at 11/11/20 1615 PMH/PSH/SH/ reviewed, [...] excoriations Musculoskeletal: No joint swelling, non tender BURGLAR ALARM SUPERINTENDENT: Awake, and Ox3 Wound: Foot with description [...] retained stool in the proximal colon and thgcb-[id number] amount of retained stool in the distal [...] No tendon tear or tenosynovitis is seen. [employer] Workstation ID: [id number] MR Foot Right With And Without Contrast Final Result 1. Prior forefoot resection. Cellulitis of the surgical stump is seen associated with small ulceration. 2. No abscess. 3. No MR signs of osteomyelitis. 4. Alwe-kk-ehqjnxtl mid/hindfoot osteoarthritis. 5. Remote sprains of the ATFL and deep fibers of the deltoid ligament, as above. [employer] Workstation ID: [id number] XR Foot Left 3+ [...] eyes, with long-term current use of insulin ([facility]) Relevant Medications insulin glargine (LANTUS) [...] Arora MD - 11/20/2020 5:49 PM EST [facility] Inpatient Follow-up 11/20/2020 Palak Arora MD [facility] Patient: More Kingsley . Date [...] Q8H heparin (porcine) 5,000 Units Subcutaneous Q8H [facility] insulin glargine 25 Units Subcutaneous Nightly lispro insulin 0-15 Units Subcutaneous at bedtime insulin lispro 0-30 Units Subcutaneous Daily before lunch insulin lispro 0-30 Units Subcutaneous Before dinner [START ON 11/21/2020] insulin lispro 0-30 Units Subcutaneous QAM AC pantoprazole 40 mg Oral Daily sodium chloride (PF) 10 mL Intracatheter Q8H [facility] Results/Medications Reviewed 11/20/20 5:49 PM: [...] of bed rail) Sit to Supine: Modified [place](HOB elevated) Skilled Intervention: Pt seated EOB ~11 [...] . Prior Level of Function Level of [place]: Independent with ADLs and functional transfers Lives [...] Date of : 1965 Sex: Male This campaign worker received call back from [facility], agency able to accept patient and start care on WednesdayNovember 22. Joan social science teacher updated. Abdoulaye Menjivar [facility] Disposition Regulatory Documentation: Medicare IM Regulatory Documentation Status: Signed Signed: Self * Joan Trejo LISW - 11/20/2020 10:35 AM EST DISCHARGE PLAN PROGRESS NOTE Date: 11/20/2020 Time: 10:35 AM Patient Name: More Kingsley Jr. Date of : 1965 Sex: Male [facility] contacted this worker. Patient has medicare part [...] due to amount of wound vac drainage. [facility] Disposition Regulatory Documentation: Medicare IM Regulatory Documentation Status: Signed Signed: Self * Marvel Mcmillan MD - 11/20/2020 9:55 AM EST Patient ID: Patient Name: More Kingsley Jr. Admit Date: 11/05/2020 MR #: [id number] : 1965 Current location: [facility] Physicians: Cheng Staples CNP (Family); [...] with Application of Wound Vac, by Dr hCerry 11/18/2020. He is currently getting Lantus 25u [...] CPM 11/14: Continue current insulin doses. Consult manager finance for gastroparesis diet education. 11/18: CPM 11/19: CPM 11/20 Discharge on 5 H TID ac and 25 Lantus, plus SSI. Can restart metformin 1000 mg BID. [facility] 2. Education: Reviewed ABCs of diabetes management [...] with IV ATB. Pt does live in [place], is willing to follow up in wound [...] More Kingsley Jr. Admit Date: MR #: [id number] : 1965 Physicians: Cheng Staples CNP (Family); No ref. provider found (Referring) Assessment: Patient with 1. Left foot abscess, with MSSA 2. Osteomyelitis with MSSA 3. Uncontrolled diabetes. 4. Abdominal pain. 5. Constipation. Plan. Continue patient on current therapyn. Continue patient on IV cefazolin. I reviewed labs, including cultures, with MSSA, and be strep. I appreciate risk developer evaluation. Patient needs incision and drainage of left foot abscess Dressing according to risk developer recommendation Endocrinology evaluation for adequate blood sugar [...] mL/hr, Intravenous, PRN, Tanja Whitmore, [facility],PharmD, New Bag at 11/11/20 1615 PMH/PSH/SH/FH reviewed, [...] excoriations Musculoskeletal: No joint swelling, non tender BURGLAR ALARM SUPERINTENDENT: Awake, and Ox3 Wound: Foot with description [...] retained stool in the proximal colon and djyld-ff-epbklycp amount of retained stool in the distal [...] No tendon tear or tenosynovitis is seen. [facility]/[employer] Workstation ID: [id number] MR Foot Right With And Without Contrast Final Result 1. Prior forefoot resection. Cellulitis of the surgical stump is seen associated with small ulceration. 2. No abscess. 3. No MR signs of osteomyelitis. 4. Yqut-dv-qvnqgorn mid/hindfoot osteoarthritis. 5. Remote sprains of the ATFL and deep fibers of the deltoid ligament, as above. MPH/T[employer] Workstation ID: [id number] XR Foot Left 3+ [...] present. Principal Problem: Secondary DM with DKA ([facility]) Active Problems: Type 2 diabetes mellitus with retinopathy of both eyes, with long-term current use of insulin ([facility]) * Joan Trejo LISW - 11/19/2020 3:16 PM EST This worker was advised to sent referral to [facility]. Referral faxed. Message left for [place]. * Joan Trejo LISW - 11/19/2020 2:31 [...] vac. Patient would like to go home. [facility] notified to check him home infusion benefits. Care coordination following. * Scarlett German - 11/19/2020 12:12 PM EST DISCHARGE PLAN PROGRESS NOTE Date: 11/19/2020 Time: 12:12 PM Patient Name: More Kingsley Jr. Date of : 1965 Sex: Male Spoke with pt regarding [facility], #1 choice [facility] ([phone]). Spoke with Seema and faxed free text to [phone] the [facility] referral and asked for a return call as soon as possible. Pt discharged possibly tomorrow. 13:18 - Rec'd call from Seema with [facility] and they CANNOT accept pt due to lack of staffing. Will try # 2 - [facility] ([phone]). 13:21 - Called # 2& spoke to Racquel, Free text referral to fax [phone] @ 13:26. Informed Ranjana via secure chat. 15:25 - Called Alix and Paola said they never rec'd fax sent at 13:26. Spoke with Ranjana and she said to move on to [facility]'s 2 suggestions 1)[facility] @ [phone]. I called and they have NO staff at this time to service [place]. Moved on to 2) [facility], ([phone]) spoke with Evette and she said I could fax the referral ([phone]) which I did at 15:42. Scarlett German [...] . Prior Level of Function Level of [place]: Independent with ADLs and functional transfers Lives [...] Kingsley Jr. Admit Date: 11/05/2020 MR #: [id number] : 1965 Current location: [facility] Physicians: Cheng Staples CNP (Family); [...] CPM 11/14: Continue current insulin doses. Consult manager finance for gastroparesis diet education. 11/18: CPM 11/19: [...] signed by Olga CHAVEZ 208:39 AM * Paalk Arora MD - 11/19/2020 8:34 AM EST [facility] Inpatient Follow-up 11/19/2020 Palak Arora MD [facility] Patient: More Kingsley . Date [...] More Kingsley Jr. Admit Date: MR #: [id number] : 1965 Physicians: Cheng Staples CNP (Family); No ref. provider found (Referring) Assessment: Patient with 1. Left foot abscess, with MSSA 2. Osteomyelitis with MSSA 3. Uncontrolled diabetes. 4. Abdominal pain. 5. Constipation. Plan. Continue patient on current therapyn. Continue patient on IV cefazolin. I reviewed labs, including cultures, with MSSA, and be strep. I appreciate risk developer evaluation. Patient needs incision and drainage of left foot abscess Dressing according to risk developer recommendation Endocrinology evaluation for adequate blood sugar [...] injection 5,000 Units, 5,000 Units, Subcutaneous, Q8H [facility], Chuyita Arias MD, Stopped at 11/18/20 [...] Jean Farley MD, 1 tablet at 11/17/20 7956 pantoprazole (PROTONIX) EC tablet 40 mg, 40 mg, Oral, Daily, Chuyita Arias MD, 40 mg at 11/18/20 0857 sodium chloride 0.9% (NS), 0-150 mL/hr, Intravenous, PRN, Tanja Whitmore, [facility],PharmD, New Bag at 11/11/20 1615 PMH/PSH/SH/ reviewed, [...] retained stool in the proximal colon and uecnd-sk-lkemarlm amount of retained stool in the distal [...] No tendon tear or tenosynovitis is seen. MPH/[employer] Workstation ID: [id number] MR Foot Right With And Without Contrast Final Result 1. Prior forefoot resection. Cellulitis of the surgical stump is seen associated with small ulceration. 2. No abscess. 3. No MR signs of osteomyelitis. 4. Dkwo-eo-wrdszepn mid/hindfoot osteoarthritis. 5. Remote sprains of the ATFL and deep fibers of the deltoid ligament, as above. MPH/[employer] Workstation ID: [id number] XR Foot Left 3+ [...] follow. Rosalinda Reyes RDN, LD Dietitian's Office [phone] * Palak Arora MD - 11/18/2020 9:28 AM EST [facility] Inpatient H&P 11/18/2020 Palak Arora MD [facility] Patient: More Kingsley Jr. Date of : 1965 (55 y.o.) PCP: Cheng Staples, IN STORE MARKETING REPRESENTATIVE Assessment More Kingsley is a 54 [...] Kingsley Jr. Admit Date: 11/05/2020 MR #: [id number] : 1965 Current location: [facility] Physicians: Cheng Staples CNP (Family); [...] CPM 11/14: Continue current insulin doses. Consult manager finance for gastroparesis diet education. 11/18: CPM 2. [...] More Kingsley Jr. Admit Date: MR #: [id number] : 1965 Physicians: Cheng Staples CNP (Family); No ref. provider found (Referring) Assessment: Patient with 1. Left foot abscess, with MSSA 2. Osteomyelitis with MSSA 3. Uncontrolled diabetes. 4. Abdominal pain. 5. Constipation. Plan. Continue patient on current therapyn. Continue patient on IV cefazolin. I reviewed labs, including cultures, with MSSA, and be strep. I appreciate risk developer evaluation. Patient needs incision and drainage of left foot abscess Dressing according to risk developer recommendation Endocrinology evaluation for adequate blood sugar [...] mL/hr, Intravenous, PRN, Tanja Whitmore, [facility],PharmD, New Bag at 11/11/20 1615 PMH/PSH/SH/ reviewed, [...] excoriations Musculoskeletal: No joint swelling, non tender BURGLAR ALARM SUPERINTENDENT: Awake, and Ox3 Wound: Foot with description [...] retained stool in the proximal colon and oiljh-mv-zuyzyexz amount of retained stool in the distal [...] No tendon tear or tenosynovitis is seen. MPH/[employer]av Workstation ID: [id number] MR Foot Right With And Without Contrast Final Result 1. Prior forefoot resection. Cellulitis of the surgical stump is seen associated with small ulceration. 2. No abscess. 3. No MR signs of osteomyelitis. 4. Irfr-bl-zluwlkjy mid/hindfoot osteoarthritis. 5. Remote sprains of the ATFL and deep fibers of the deltoid ligament, as above. MPH/[employer] Workstation ID: [id number] XR Foot Left 3+ [...] Arias MD - 11/17/2020 10:29 AM EST [facility] Inpatient H&P 11/17/2020 Chuyita Arias MD [facility] Patient: More Kingsley Jr. Date of : 1965 (55 y.o.) PCP: Cheng Staples, IN STORE MARKETING REPRESENTATIVE Assessment More Kingsley is a 54 [...] retained stool in the proximal colon and mxmsc-gl-koozxafl amount of retained stool in the distal [...] Progress Inpatient Follow-up 11/17/2020 Braeden Conte DPM [facility] Patient: More Kingsley Jr. Date [...] 33.21 kg/m Laboratory and Additional Data Reviewed: Reviewed:[id number]} * Marcella Bell MD - 11/16/2020 7:11 PM EST Patient Name: More Kingsley Jr. Admit Date: MR #: [id number] : 1965 Physicians: Cheng Staples CNP (Family); No ref. provider found (Referring) Assessment: Patient with 1. Left foot abscess, with MSSA 2. Osteomyelitis with MSSA 3. Uncontrolled diabetes. 4. Abdominal pain. 5. Constipation. Plan. Continue patient on current therapyn. Continue patient on IV cefazolin. I reviewed labs, including cultures, with MSSA, and be strep. I appreciate risk developer evaluation. Patient needs incision and drainage of left foot abscess Dressing according to risk developer recommendation Endocrinology evaluation for adequate blood sugar [...] mL/hr, Intravenous, PRN, Tanja Whitmore, [facility],PharmD, New Bag at 11/11/20 1615 PMH/PSH/SH/ reviewed, [...] excoriations Musculoskeletal: No joint swelling, non tender BURGLAR ALARM SUPERINTENDENT: Awake, and Ox3 Wound: Foot with description [...] retained stool in the proximal colon and jntxn-be-vncygwvp amount of retained stool in the distal [...] 3. No MR signs of osteomyelitis. 4. Oazu-oa-ergegwac mid/hindfoot osteoarthritis. 5. Remote sprains of the ATFL and deep fibers of the deltoid ligament, as above. MPH/[facility] Workstation ID: [id number] XR Foot Left [...] Progress Inpatient Follow-up 11/16/2020 Braeden Conte DPM [facility] Patient: More Kingsley Jr. Date [...] 33.21 kg/m Laboratory and Additional Data Reviewed: Reviewed:[id number]} * Chuyita Arias MD - 11/16/2020 11:26 AM EST [facility] Inpatient H&P 11/16/2020 Chuyita Arias MD [facility] Patient: More Kingsley Jr. Date of : 1965 (55 y.o.) PCP: Cheng Staples, IN STORE MARKETING REPRESENTATIVE Assessment More Kingsley is a 54 [...] retained stool in the proximal colon and bfnqr-mi-pwiuylge amount of retained stool in the distal [...] 11:26 AM IMAGING: Reviewed 11:26 AM * Mracella Bell MD - 11/15/2020 3:38 PM EST Patient Name: More Kingsley Jr. Admit Date: MR #: [id number] : 1965 Physicians: Cheng Staples CNP (Family); No ref. provider found (Referring) Assessment: Patient with 1. Left foot abscess, with MSSA 2. Osteomyelitis with MSSA 3. Uncontrolled diabetes. 4. Abdominal pain. Plan. Continue patient on current therapyn. Continue patient on IV cefazolin. I reviewed labs, including cultures, with MSSA, and be strep. I appreciate risk developer evaluation. Patient needs incision and drainage of left foot abscess Dressing according to risk developer recommendation Endocrinology evaluation for adequate blood sugar [...] 40 mg, 40 mg, Oral, Daily, Chuyita Airas MD, 40 mg at 11/15/20 1318 potassium chloride SA (K-DUR,KLOR-CON) CR tablet 40 mEq, 40 mEq, Oral, Daily, Flaok Pinedo MD, 40 mEq at 11/08/20 0931 sodium chloride 0.9% (NS), 0-150 mL/hr, Intravenous, PRN, Tanja Whitmore, [facility],PharmD, New Bag at 11/11/20 1615 PMH/PSH// reviewed, [...] retained stool in the proximal colon and twpyp-kl-yvxrfkub amount of retained stool in the distal [...] No tendon tear or tenosynovitis is seen. MPH/[employer] Workstation ID: [id number] MR Foot Right With And Without Contrast Final Result 1. Prior forefoot resection. Cellulitis of the surgical stump is seen associated with small ulceration. 2. No abscess. 3. No MR signs of osteomyelitis. 4. Abui-ky-zqxhyhwi mid/hindfoot osteoarthritis. 5. Remote sprains of the ATFL and deep fibers of the deltoid ligament, as above. MPH/[employer] Workstation ID: [id number] XR Foot Left 3+ [...] Progress Inpatient Follow-up 11/15/2020 Braeden Conte DPM [facility] Patient: More Kingsley Jr. Date [...] antibiotics. Patient sees Dr. Eric Stephenson his risk developer at [facility] ([phone]) for wound care normally. Patient would like [...] to his [facility] which [facility]. Patient denies nausea vomiting fevers or [...] 33.21 kg/m Laboratory and Additional Data Reviewed: Reviewed:[id number]} * Chuyita Arias MD - 11/15/2020 11:19 AM EST [facility] Inpatient H&P 11/15/2020 Chuyita Arias MD [facility] Patient: More Kingsley . Date of : 1965 (55 y.o.) PCP: Cheng Staples, IN STORE MARKETING REPRESENTATIVE Assessment More Kingsley is a 54 [...] More Kingsley Jr. Admit Date: MR #: [id number] : 1965 Physicians: Cheng Stpales CNP (Family); No ref. provider found (Referring) Assessment: Patient with 1. Left foot abscess, with MSSA 2. Osteomyelitis with MSSA 3. Uncontrolled diabetes. Plan. Continue patient on current therapyn. Continue patient on IV cefazolin. I reviewed labs, including cultures, with MSSA, and be strep. I appreciate risk developer evaluation. Patient needs incision and drainage of left foot abscess Dressing according to risk developer recommendation Endocrinology evaluation for adequate blood sugar [...] mL, 20 mL, Intravenous, Once in imaging, Betahnie Pinedo MD heparin (porcine) injection 5,000 Units, [...] mL/hr, Intravenous, PRN, Tanja Whitmore, [facility],PharmD, New Bag at 11/11/20 1615 PMH/PSH/SH/ reviewed, [...] excoriations Musculoskeletal: No joint swelling, non tender BURGLAR ALARM SUPERINTENDENT: Awake, and Ox3 Wound: Foot with description [...] No tendon tear or tenosynovitis is seen. MPH/[employer] Workstation ID: [id number] MR Foot Right With And Without Contrast Final Result 1. Prior forefoot resection. Cellulitis of the surgical stump is seen associated with small ulceration. 2. No abscess. 3. No MR signs of osteomyelitis. 4. Fydn-zg-sfzwsvdm mid/hindfoot osteoarthritis. 5. Remote sprains of the ATFL and deep fibers of the deltoid ligament, as above. MPH/[employer] Workstation ID: [id number] XR Foot Left 3+ [...] foot after Dr Cherry had reported to [facility] pt can heel WB only through R [...] . Prior Level of Function Level of [place]: Independent with ADLs and functional transfers Lives [...] Arias MD - 11/14/2020 10:45 AM EST [facility] Inpatient H&P 11/14/2020 Chuyita Arias MD [facility] Patient: More Kingsley Jr. Date [...] Progress Inpatient Follow-up 11/14/2020 Ryan Conte DPM [facility] Patient: More Kingsley Jr. 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 [place] on the wound VAC was approximately a [...] 33.21 kg/m Laboratory and Additional Data Reviewed: Reviewed:[id number]} * Nam Briggs PA-C - 11/14/2020 9:54 AM EST Patient ID: Patient Name: More Kingsley Jr. Admit Date: 11/05/2020 MR #: [id number] : 1965 Current location: [facility] Physicians: Cheng Staples CNP (Family); [...] CPM 11/14: Continue current insulin doses. Consult manager finance for gastroparesis diet education. 2. Education: Reviewed [...] CHANGE; Surgeon: Leanne Cherry DPM; Location: [facility]; Service: Podiatry HAND SURGERY Left WOUND VAC [...] you. Electronically signed by: Nam Briggs PA-C, [facility] 11/14/20 9:55 AM * Marcella Bell MD - 11/13/2020 8:26 PM EST Patient Name: More Kingsley Jr. Admit Date: MR #: [id number] : 1965 Physicians: Cheng Staples, ROSALIA (Family); No ref. provider found (Referring) Assessment: Patient with 1. Left foot abscess, with MSSA 2. Suspicion for osteomyelitis 3. Uncontrolled diabetes. Plan. Continue patient on current therapyn. Continue patient on IV cefazolin. I reviewed labs, including cultures, with MSSA, and be strep. I appreciate risk developer evaluation. Patient needs incision and drainage of left foot abscess Dressing according to risk developer recommendation Endocrinology evaluation for adequate blood sugar [...] (HumaLOG) injection 0-30 Units, 0-30 Units, Subcutaneous, [facility], [facility], Marvel Mcmillan MD, 3 Units at [...] mL/hr, Intravenous, PRN, Tanja Whitmore, [facility],PharmD, New Bag at 11/11/20 1615 PMH/PSH/SH/ reviewed, [...] excoriations Musculoskeletal: No joint swelling, non tender BURGLAR ALARM SUPERINTENDENT: Awake, and Ox3 Wound: Foot with description [...] No tendon tear or tenosynovitis is seen. MPH/[employer] Workstation ID: [id number] MR Foot Right With And Without Contrast Final Result 1. Prior forefoot resection. Cellulitis of the surgical stump is seen associated with small ulceration. 2. No abscess. 3. No MR signs of osteomyelitis. 4. Wmwh-ma-rjdqumrx mid/hindfoot osteoarthritis. 5. Remote sprains of the ATFL and deep fibers of the deltoid ligament, as above. MPH/[employer] Workstation ID: [id number] XR Foot Left 3+ [...] Arias MD - 11/13/2020 11:32 AM EST [facility] Inpatient H&P 11/13/2020 Chuyita Arias MD [facility] Patient: More Kingsley Jr. Date of : 1965 (55 y.o.) PCP: Cheng Staples, IN STORE MARKETING REPRESENTATIVE Assessment More Kingsley is a 54 [...] Kingsley Jr. Admit Date: 11/05/2020 MR #: [id number] : 1965 Current location: [facility] Physicians: Cheng Staples CNP (Family); [...] present. Principal Problem: Secondary DM with DKA ([facility]) Active Problems: Type 2 diabetes mellitus with retinopathy of both eyes, with long-term current use of insulin ([facility]) * Marcella Bell MD - 11/12/2020 2:05 PM EST Patient Name: More Kingsley Jr. Admit Date: MR #: [id number] : 1965 Physicians: Cheng Staples CNP (Family); No ref. provider found (Referring) Assessment: Patient with 1. Left foot abscess, with MSSA 2. Suspicion for osteomyelitis 3. Uncontrolled diabetes. Plan. Continue patient on current therapyn. Continue patient on IV cefazolin. I reviewed labs, including cultures, with MSSA, and be strep. I appreciate risk developer evaluation. Patient needs incision and drainage of left foot abscess I reviewed MRI of the foot, with Extensive cellulitis, and concern for septic arthroplathy and osteomyelitis of the left foot Dressing according to risk developer recommendation Endocrinology evaluation for adequate blood sugar [...] mL/hr, Intravenous, PRN, Tanja Whitmore, [facility],PharmD, New Bag at 11/11/20 1615 PMH/PSH/SH/ reviewed, [...] excoriations Musculoskeletal: No joint swelling, non tender BURGLAR ALARM SUPERINTENDENT: Awake, and Ox3 Wound: Foot with description [...] No tendon tear or tenosynovitis is seen. MPH/[employer] Workstation ID: [id number] MR Foot Right With And Without Contrast Final Result 1. Prior forefoot resection. Cellulitis of the surgical stump is seen associated with small ulceration. 2. No abscess. 3. No MR signs of osteomyelitis. 4. Hfqq-wn-ouilhsae mid/hindfoot osteoarthritis. 5. Remote sprains of the ATFL and deep fibers of the deltoid ligament, as above. MPH/[employer] Workstation ID: [id number] XR Foot Left 3+ [...] Arias MD - 11/12/2020 11:38 AM EST [facility] Inpatient H&P 11/12/2020 Chuyita Arias MD [facility] Patient: More Kingsley Jr. Date of : 1965 (55 y.o.) PCP: Cheng Staples, IN STORE MARKETING REPRESENTATIVE Assessment More Kingsley is a 54 [...] AM IMAGING: Reviewed 11:38 AM * Iliana Aggarawl, GAS OR PETROLEUM OPERATOR - 11/12/2020 10:25 AM EST Physical [...] Stand: Min Stand Pivot Transfers: Contact guard Housing Court Judge: Wheeled walker Skilled Intervention: Pt required vc [...] . Prior Level of Function Level of [place]: Independent with ADLs and functional transfers Lives [...] . Prior Level of Function Level of [place]: Independent with ADLs and functional transfers Lives [...] Kingsley Jr. Admit Date: 11/05/2020 MR #: [id number] : 1965 Current location: [facility] Physicians: Cheng Staples CNP (Family); [...] More Kingsley Jr. Admit Date: MR #: [id number] : 1965 Physicians: Cheng Staples CNP (Family); No ref. provider found (Referring) Assessment: Patient with 1. Left foot abscess 2. Suspicion for osteomyelitis 3. Uncontrolled diabetes. Plan. Continue patient on current therapyn. Continue patient on IV cefazolin. I reviewed labs, including cultures, with MSSA, and be strep. I appreciate risk developer evaluation. Patient needs incision and drainage of left foot abscess I reviewed MRI of the foot, with Extensive cellulitis, and concern for septic arthroplathy and osteomyelitis of the left foot Dressing according to risk developer recommendation Endocrinology evaluation for adequate blood sugar [...] mL/hr, Intravenous, PRN, Tanja Whitmore, [facility],PharmD PMH/PSH/SH/ reviewed, no change : Review of [...] excoriations Musculoskeletal: No joint swelling, non tender BURGLAR ALARM SUPERINTENDENT: Awake, and Ox3 Wound: Foot with description [...] No tendon tear or tenosynovitis is seen. [employer] Workstation ID: [id number] MR Foot Right With And Without Contrast Final Result 1. Prior forefoot resection. Cellulitis of the surgical stump is seen associated with small ulceration. 2. No abscess. 3. No MR signs of osteomyelitis. 4. Qxjb-ac-znhjunmu mid/hindfoot osteoarthritis. 5. Remote sprains of the ATFL and deep fibers of the deltoid ligament, as above. MPH/[employer] Workstation ID: [id number] XR Foot Left 3+ [...] Arias MD - 11/11/2020 12:06 PM EST [facility] Inpatient H&P 11/11/2020 Chuyita Arias MD [facility] Patient: More Kingsley Jr. Date of : 1965 (55 y.o.) PCP: Cheng Staples, IN STORE MARKETING REPRESENTATIVE Assessment More Kingsley is a 54 [...] Kingsley Jr. Admit Date: 11/05/2020 MR #: [id number] : 1965 Current location: [facility] Physicians: Cheng Staples CNP (Family); [...] you. Electronically signed by: Nam Briggs PA-C, [facility] 11/11/20 10:50 AM * Slyfarnaz Tricia, GAS OR PETROLEUM OPERATOR - 11/11/2020 8:43 AM EST Physical [...] TE) HEP educated for DOC LE therex: 5f76-70 reps In each direction to improve ms and carryover of improved mobility. Print out provided as well. Pt verbally agrees to perform most as long as no back pain. Home Living Type of Home: House Home Layout: One level, Stairs to enter with rails(5 BRINDA, B HR) Prior Level of Function Level of [place]: Independent with ADLs and functional transfers Lives [...] Progress Inpatient Follow-up 2020 Leanne Cherry DPM [facility] Patient: Mroe Kingsley . Date of : 1965 (55 [...] calf pain. Laboratory and Additional Data Reviewed: Reviewed:[id number]} * Marcella Bell MD - 2020 2:47 PM EST Patient Name: More Kingsley Jr. Admit Date: MR #: [id number] : 1965 Physicians: Cheng Staples CNP (Family); No ref. provider found (Referring) Assessment: Patient with 1. Left foot abscess 2. Suspicion for osteomyelitis 3. Uncontrolled diabetes. Plan. Continue patient on current therapyn. Continue patient on IV cefazolin. I reviewed labs, including cultures, with MSSA, and be strep. I appreciate risk developer evaluation. Patient needs incision and drainage of left foot abscess I reviewed MRI of the foot, with Extensive cellulitis, and concern for septic arthroplathy and osteomyelitis of the left foot Dressing according to risk developer recommendation Endocrinology evaluation for adequate blood sugar [...] injection 5,000 Units, 5,000 Units, Subcutaneous, Q8H [facility], Chuyita Arias MD, 5,000 Units at 11/10/20 1402 [START ON 11/11/2020] insulin glargine (LANTUS) injection 25 Units, 25 Units, Subcutaneous, QAM, Marvel Mcmillan MD insulin glargine (LANTUS) injection 25 Units, 25 Units, Subcutaneous, Nightly, Marvel Mcmillan MD insulin lispro (HumaLOG) injection 0-15 Units, 0-15 Units, Subcutaneous, at bedtime, Jack Hair, IN STORE MARKETING REPRESENTATIVE, 2 Units at 11/06/20 2105 insulin [...] mL/hr, Intravenous, PRN, Tanja Whitmore, [facility],PharmD PMH/PSH/SH/FH reviewed, no change : Review of [...] excoriations Musculoskeletal: No joint swelling, non tender BURGLAR ALARM SUPERINTENDENT: Awake, and Ox3 Wound: Foot with description [...] No tendon tear or tenosynovitis is seen. MPH/[employer] Workstation ID: [id number] MR Foot Right With And Without Contrast Final Result 1. Prior forefoot resection. Cellulitis of the surgical stump is seen associated with small ulceration. 2. No abscess. 3. No MR signs of osteomyelitis. 4. Ilid-cj-fnpltipr mid/hindfoot osteoarthritis. 5. Remote sprains of the ATFL and deep fibers of the deltoid ligament, as above. MPH/[employer] Workstation ID: [id number] XR Foot Left 3+ [...] Arias MD - 2020 11:19 AM EST [facility] Inpatient H&P 2020 Chuyita Arias MD [facility] Patient: More Kingsley Jr. Date of : 1965 (55 y.o.) PCP: Cheng Staples, IN STORE MARKETING REPRESENTATIVE Assessment More Kingsley is a 54 [...] More Kingsley Jr. Admit Date: MR #: [id number] : 1965 Physicians: Cheng Staples CNP (Family); No ref. provider found (Referring) Assessment: Patient with 1. Left foot abscess 2. Suspicion for osteomyelitis 3. Uncontrolled diabetes. Plan. Continue patient on current therapyn. Continue patient on IV cefazolin. I reviewed labs, including cultures, with MSSA, and be strep. I appreciate risk developer evaluation. Patient needs incision and drainage of left foot abscess I reviewed MRI of the foot, with Extensive cellulitis, and concern for septic arthroplathy and osteomyelitis of the left foot Dressing according to risk developer recommendation Endocrinology evaluation for adequate blood sugar [...] 0-30 Units, Subcutaneous, Before dinner, Jack Coffey IN STORE MARKETING REPRESENTATIVE, 3 Units at 11/09/20 1826 ipratropium-albuteroL (DUO-NEB) [...] mL/hr, Intravenous, PRN, Tanja Whitmore, [facility],PharmD PMH/PSH/SH/ reviewed, no change : Review of [...] excoriations Musculoskeletal: No joint swelling, non tender BURGLAR ALARM SUPERINTENDENT: Awake, and Ox3 Wound: Foot with description [...] No tendon tear or tenosynovitis is seen. Wiziva/Neonode Workstation ID: [id number] MR Foot Right With And Without Contrast Final Result 1. Prior forefoot resection. Cellulitis of the surgical stump is seen associated with small ulceration. 2. No abscess. 3. No MR signs of osteomyelitis. 4. Klbh-lb-wbuylxbm mid/hindfoot osteoarthritis. 5. Remote sprains of the ATFL and deep fibers of the deltoid ligament, as above. Wiziva/TitanFile Workstation ID: [id number] [id number] Foot Left 3+ [...] Progress Inpatient Follow-up 11/09/2020 Leanne Cherry DPM [facility] Patient: More Kingsley Jr. Date [...] calf pain. Laboratory and Additional Data Reviewed: Reviewed:[id number]} * Chuyita Arias MD - 11/09/2020 11:50 AM EST Hospital Medicine Inpatient H&P 11/09/2020 Chuyita Arias MD [facility] Patient: More Kingsley Jr. Date [...] Kingsley Jr. Admit Date: 11/05/2020 MR #: [id number] : 1965 Current location: [facility] Physicians: Cheng Staples CNP (Family); [...] by Olga Wheeler APRN-ROSALIA 208:30 AM Olga Wheelre CNP * Marcella Bell MD - 11/08/2020 6:30 PM EST Patient Name: More Kingsley Jr. Admit Date: MR #: [id number] : 1965 Physicians: Cheng Staples CNP (Family); No ref. provider found (Referring) Assessment: Patient with 1. Left foot abscess 2. Suspicion for osteomyelitis 3. Uncontrolled diabetes. Plan. Continue patient on current therapy Okay to DC IV vancomycin Okay to DC IV Zosyn. Start patient on IV cefazolin. I reviewed labs, including cultures, with MSSA, and be strep. I appreciate risk developer evaluation. Patient needs incision and drainage of left foot abscess I reviewed MRI of the foot, with Extensive cellulitis, and concern for septic arthroplathy and osteomyelitis of the left foot Dressing according to risk developer recommendation Endocrinology evaluation for adequate blood sugar [...] tablet 40 mEq, 40 mEq, Oral, Daily, Flaok Pinedo MD, 40 mEq at 11/08/20 0931 sodium chloride 0.9% (NS), 0-150 mL/hr, Intravenous, PRN, Tanja Whitmore, [facility],PharmD PMH/PSH/SH/ reviewed, no change : Review of [...] excoriations Musculoskeletal: No joint swelling, non tender BURGLAR ALARM SUPERINTENDENT: Awake, and Ox3 Wound: Foot with description [...] No tendon tear or tenosynovitis is seen. MPH/Fotoshkolav Workstation ID: [id number] MR Foot Right With And Without Contrast Final Result 1. Prior forefoot resection. Cellulitis of the surgical stump is seen associated with small ulceration. 2. No abscess. 3. No MR signs of osteomyelitis. 4. Pnit-fe-wuopgkun mid/hindfoot osteoarthritis. 5. Remote sprains of the ATFL and deep fibers of the deltoid ligament, as above. MPH/TitanFile Workstation ID: [id number] Foot Left 3+ [...] Endocrine * (Principal) Secondary DM with DKA ([facility]) Relevant Medications insulin glargine (LANTUS) [...] Arias MD - 11/08/2020 12:13 PM EST [facility] Medicine Inpatient H&P 11/08/2020 Chuyita Arias MD [facility] Patient: More Kingsley Jr. Date of : 1965 (54 y.o.) PCP: Cheng Staples, IN STORE MARKETING REPRESENTATIVE Assessment More Kingsley is a 54 [...] Kingsley Jr. Admit Date: 11/05/2020 MR #: [id number] : 1965 Current location: [facility] Physicians: Cheng Staples CNP (Family); [...] Progress Inpatient Follow-up 11/08/2020 Ryan Conte DPM [facility] Patient: More Kingsley . Date [...] calf pain. Laboratory and Additional Data Reviewed: Reviewed:[id number]} * Marcella Bell MD - 11/07/2020 7:38 PM EST Patient Name: More Kingsley Jr. Admit Date: MR #: [id number] : 1965 Physicians: Cheng Staples CNP (Family); No ref. provider found (Referring) Assessment: Patient with 1. Left foot abscess 2. Suspicion for osteomyelitis 3. Uncontrolled diabetes. Plan. Continue patient on current therapy Okay to DC IV vancomycin Okay to DC IV Zosyn. Start patient on IV cefazolin. I reviewed labs, including cultures, with MSSA, and be strep. I appreciate risk developer evaluation. Patient needs incision and drainage of left foot abscess I reviewed MRI of the foot, with Extensive cellulitis, and concern for septic arthroplathy and osteomyelitis of the left foot Dressing according to risk developer recommendation Endocrinology evaluation for adequate blood sugar [...] 40 mEq, 40 mEq, Oral, Daily, Flako Pineod MD, 40 mEq at 11/06/20 0902 PMH/PSH/SH/FH [...] excoriations Musculoskeletal: No joint swelling, non tender BURGLAR ALARM SUPERINTENDENT: Awake, and Ox3 Wound: Foot with description [...] 3. No MR signs of osteomyelitis. 4. Eara-ue-zcxttijl mid/hindfoot osteoarthritis. 5. Remote sprains of the [...] Inpatient Progress Note 11/07/2020 Leanne Cherry DPM [facility] Patient: More Kingsley Jr. Date [...] Farley MD - 11/07/2020 11:01 AM EST [facility] Medicine Inpatient H&P 11/07/2020 Jean Farley MD [facility] Patient: More Kingsley Jr. Date of : 1965 (54 y.o.) PCP: Cheng Staples, IN STORE MARKETING REPRESENTATIVE Assessment More Kingsley is a 54 [...] Kingsley Jr. Admit Date: 11/05/2020 MR #: [id number] : 1965 Current location: [facility] Physicians: Cheng Staples CNP (Family); [...] Mcmillan MD * Rafat Miller, [facility],PharmD - 11/07/2020 8:06 AM EST PHARMACOTHERAPY NOTE: [...] 11/05/20 105 kg (231 lb 7.7 oz) Imperial body weight: 73 kg (160 lb 15 [...] seen Pharmacist: Rafat Miller RPh,PharmD Contact Number: [phone] * Jean Farley MD - 11/06/2020 9:18 AM EST [facility] Medicine Inpatient H&P 11/06/2020 Jean Farley MD [facility] Patient: More Kingsley Date of : 1965 (54 y.o.) PCP: Cheng Staples, IN STORE MARKETING REPRESENTATIVE Assessment More Kingsley is a 54 [...] 11/05/20 105 kg (231 lb 7.7 oz) Imperial body weight: 73 kg (160 lb 15 [...] pending Pharmacist: Jose Read RPh,PharmD Contact Number: [phone] documented in this encounter* Phu Buck RN - 11/20/2020 8:44 AM EST 11/20/2020 Call from Frances in [facility] this am confirming that pt is out of service area for [facility] andPharmacy. This RN had notified CM team of same on 11/19. Patient lives in [place], [place] so CM sendingreferral to [place]. [facility] and IV Infusion: Pt lives outside of the [facility] area for both Home Health and Pharmacy. documented in this encounter* Monica Jalloh RN - 12/19/2020 2:30 PM EST Nurse wore gloves and mask while taking care of patient. Patient wearing mask at all times while staff in the room. * Marcella Bell MD - 12/19/2020 2:21 PM EST Patient Name: More Kingsley Jr. Admit Date: MR #: [id number] : 1965 Physicians: Cheng Staples CNP (Family); [...] MSSA, and be strep. Dressing according to risk developer recommendation Endocrinology evaluation for adequate blood sugar [...] cultures, bone culture with no growth. Follow-up risk developer. I reviewed CBC, and C-reactive protein with 10.9 kidneys BUN and creatinine 9 and 0.72 Follow-up in 3 weeks. Okay with surgical shoe. Subjective: Patient is being reevaluated again today, he was followed in [facility] in the month of October 2020, at that time he had presented with left foot swelling and redness and alsowith some draining pus. He was evaluated and found with abscess of the left foot, and osteomyelitis. Patient then had risk developer debridement and drainage. Wound culture then had [...] excoriations Musculoskeletal: No joint swelling, non tender BURGLAR ALARM SUPERINTENDENT: Awake, and Ox3 PICC line in place. [...] and PT pulses nonpalpable secondary to edema. BIT SHARPENER OPERATOR is brisk to distal digits. Gross sensation [...] More Kingsley Jr. Admit Date: MR #: [id number] : 1965 Physicians: Cheng Staples CNP (Family); No ref. provider found (Referring) Assessment: Patient with 1. Left foot abscess, with MSSA 2. Osteomyelitis with MSSA 3. Uncontrolled diabetes. 4. Abdominal pain. 5. Constipation. Plan. Continue patient on current therapy. Status post IV cefazolin. Had antibiotics for more than 8 weeks. I reviewed labs, including cultures, with MSSA, and be strep. Dressing according to risk developer recommendation Endocrinology evaluation for adequate blood sugar control We will continue to follow with you. Status post debridement. Reviewed previous bone cultures with MSSA. I reviewed labs. I reviewed CT scan of the abdomen and pelvis, with moderate large amount of retained stool in the proximal colon. Status post incision and drainage of the left ankle foot. Follow-up risk developer. Follow-up in 3 to 4 weeks. I reviewed bone biopsy on december with no growth I discussed with the risk developer on management plan. Dr. Cherry, scheduling for reconstruction of the left foot. Okay to switch to p.o. Keflex for the next 2 weeks. Okay to DC PICC line. Follow-up x-ray of the left foot. Subjective: Patient is being reevaluated again today, he was followed in [facility] in the month of October 2020, at that time he had presented with left foot swelling and redness and alsowith some draining pus. He was evaluated and found with abscess of the left foot, and osteomyelitis. Patient then had risk developer debridement and drainage. Wound culture then had [...] the left Charcot foot area by the risk developer. He is not complaining of any new [...] excoriations Musculoskeletal: No joint swelling, non tender BURGLAR ALARM SUPERINTENDENT: Awake, and Ox3 PICC line in place. [...] and PT pulses nonpalpable secondary to edema. BIT SHARPENER OPERATOR is brisk to distal digits. Gross sensation [...] with transportation. Patient has been driving from [facility], which takes him 1.5 hours. Patient would [...] More Kingsley Jr. Admit Date: MR #: [id number] : 1965 Physicians: Cheng Staples CNP (Family); [...] on tissue exam 11/18/20 Dressing according to risk developer recommendation - currently with VAC dressing Status post debridement, I&D Follow up bone biopsy and wound culture 12/27/20 with no growth Continue working on blood sugar control (last A1c 8.2) Drawing Instructor Dr. Cherry planning reconstruction of the left [...] wound clinic today, also coming to see risk developer. There is someincreased swelling to the base [...] excoriations Musculoskeletal: No joint swelling, non tender BURGLAR ALARM SUPERINTENDENT: Awake, and Ox3 Wound: 3/5 . ---> [...] More Kingsley Jr. Admit Date: MR #: [id number] : 1965 Physicians: Cheng Staples CNP (Family); [...] drainage of the left ankle foot. Follow-up risk developer. Follow-up in 3 to 4 weeks. I [...] was noted. Patient scheduled to see the risk developer Dr. Waller on second opinion, suggest been recommended for constructive foot surgery.. Subjective: Patient is being reevaluated again today, he was followed in [facility] in the month of October 2020, at that time he had presented with left foot swelling and redness and alsowith some draining pus. He was evaluated and found with abscess of the left foot, and osteomyelitis. Patient then had risk developer debridement and drainage. Wound culture then had [...] the left Charcot foot area by the risk developer. He is not complaining of any new [...] excoriations Musculoskeletal: No joint swelling, non tender BURGLAR ALARM SUPERINTENDENT: Awake, and Ox3 Off PICC line Wound: [...] – [place] September 12, 2025 10:38am Additional Source Comments (unrecognized sect ion and content) No Status Records FoundNo Status Records FoundNo Status Records FoundNo Status Records FoundNo Status Records FoundNo Status Records FoundNo Status Records FoundNo Status Records FoundNo Status Records FoundNo Status Records FoundNo Status Records FoundNo Status Records Found INFORMATION SOURCE (unrecogn ized section and content) DATE CREATED AUTHOR 01/10/2019 [facility] DATE CREATED AUTHOR AUTHOR'S ORGANIZ ATION 11/21/2020 [facility] DATE CREATED AUTHOR AUTHOR'S ORGANIZ ATION 02/07/2021 [facility] DATE CREATED AUTHOR AUTHOR'S ORGANIZ ATION 02/11/2021 [facility] DATE CREATED AUTHOR AUTHOR'S ORGANIZ ATION 04/04/2021 [facility] DATE CREATED AUTHOR AUTHOR'S ORGANIZ ATION 03/22/2023 [facility] DATE CREATED AUTHOR AUTHOR'S ORGANIZ ATION 03/13/2024 [facility] DATE CREATED AUTHOR AUTHOR'S ORGANIZ ATION 04/22/2025 [facility] DATE CREATED AUTHOR AUTHOR'S ORGANIZ ATION 05/20/2025 [facility] DATE CREATED AUTHOR AUTHOR'S ORGANIZ ATION 08/13/2025 [facility] DATE CREATED AUTHOR AUTHOR'S ORGANIZ ATION 08/27/2025 [facility] DATE CREATED AUTHOR AUTHOR'S ORGANIZ ATION 09/22/2025 [facility] Reason for Visit (unrecogniz ed section and content) ReasonCommentsWound CheckSpecialtyDiagnoses / ProceduresReferred By Contact Referred To ContactWound Care Diagnoses Visit for wound check Hnery GRANT Martins-IN STORE MARKETING REPRESENTATIVE [address] [place] [address] Phone: tel: fax: [facility] [address] [place] [address] Phone: tel: fax:[phone] Referral IDStatusReasonP[place] DateExpiration DateVisits RequestedVisits [id number] Review Specialty Services Required [id number]qwalpe / ProceduresReferred By ContactReferred To Contact Diagnoses Secondary DM with DKA (HCC) Left foot cellulitis; DKA ReasonCommentsCare Coordinator - Leon Yoon's office/request for office note ReasonCommentsCare CoordinationGastroparesis clinic: chart review; new patient callReasonCommentsWound CheckSpecialtyDiagnoses / ProceduresReferred By Contact Referred To ContactWound Care Diagnoses Visit for wound check Lakshmi Figueroa APRN-IN STORE MARKETING REPRESENTATIVE [address] [place] [address] Phone: tel: fax: [facility] [address] [place] [address] Phone: tel: fax:[phone] Referral IDStatusasonPequot Lakes DateExpiration DateVisits RequestedVisits [id number] Review Specialty Services Required [id number] CoordinationAppeal for GPOEM denialReason CommentsEstablish CareSpecialtyDiagnoses / ProceduresReferred By ContactReferred To ContactInternal Medicine Diagnoses Visit for wound check Hyperglycemia Lakshmi Figueroa, 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-IN STORE MARKETING REPRESENTATIVE [address] [place] [address] Phone: tel: fax: Vahe Solares MD [address] [place] [address] Phone: tel: fax: Referral IDStatusReasonStart DateExpiration DateVisits RequestedVisits [id number] Review Specialty Services Required [id number] CheckSpecialtyDiagnoses / Procedures Referred By ContactReferred To ContactWound Care Diagnoses Visit for wound check Lakshmi Figueroa 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-IN STORE MARKETING REPRESENTATIVE [address] [place] [address] Phone: tel: fax: [facility] [address] [place] [address] Phone: tel: fax: Referral IDStatusReasonStart DateExpiration DateVisits RequestedVisits [id number] Review Specialty Services Required [id number]wwqr-fqAvag painReasonCommentsMed Change RequestReasonCommentsNew PatientSpecialtyDiagnoses / ProceduresReferred By ContactReferred To ContactGENERAL SURGERY Diagnoses Gastroparesis new gp consult/empties Procedures OFFICE/OUTPATIENT NEW HIGH MDM 60 MINUTES OFFICE/OUTPATIENT NEW MODERATE MDM 45 MINUTES OFFICE/OUTPATIENT NEW LOW MDM 30 MINUTES OFFICE/OUTPATIENT NEW SF MDM 15 MINUTES OFFICE/OUTPATIENT ESTABLISHED HIGH MDM 40 MIN NEW DDI PATIENT Tracy Yoon MD [address] [place] [address] Phone: tel: fax: Dolly Hyatt, PhD [address] [place] [address] Phone: tel: fax: Referral IDStatusReasonStart DateExpiration DateVisits RequestedVisits [id number]/202412/[id number] DateCommentsResults 05/22/2025ReasonCommentstransitonal care visitReasonOnset DateCommentsResults 07/17/20256578NqpxsiFoikesflNztpyp-zrOsulmiBvaixtfsUwctrn-zwQaymlqdy/A1C/ Right foot wound Leanne Cherry DPM - 11/18/2020 12:30 PM EST H&P Notes (unrecognized sect ion and content) INTERVAL HISTORY AND PHYSICAL Patient Name: More Kingsley Jr. Admit Date: MR #: [id number] : 1965 The H&P has been reviewed and the patient has been examined. I concur with the findings of the H&P. There are no significant changes. It is appropriate to proceed with the planned procedure. Leanne Cherry DPM 11/18/2020 12:30 PM * Braeden Conte DPM - 11/17/2020 9:39 AM EST Progress Inpatient Follow-up 11/17/2020 Braeden Conte DPM [facility] Patient: More Kingsley JrFrankie Date of : [...] 33.21 kg/m Laboratory and Additional Data Reviewed: Reviewed:[id number]} * Flako Pinedo MD - 11/05/2020 8:29 PM EST [facility] Medicine Inpatient H&P 11/05/2020 Flako Pinedo MD [facility] Patient: More Kingsley Date of : 1965 (54 y.o.) PCP: Cheng Staples, IN STORE MARKETING REPRESENTATIVE Assessment More Kingsley is a 54 [...] EST Consult Notes (unrecognized section and content) Cmm Inspector went with Dr. Kumar, risk developer, to patient's room . Dr. Kumar removed remainder of black foam from tunnel at 11 oclock. Cmm Inspector requested and received order change to white foam over bone and in tunnel areas, then black foam and negative pressure increased to 150mm/hg. Wound dressed per orders with 3 pieces total white foam, two pieces black foam to top. Negative pressure maintained and patient tolerated well. Patient dressing was attached to home vac at this time. Paperwork signed forvac by patient. Cmm Inspector educated patient on charging, what to bring to future wound care appointments for dressing changes and all questions answered. * Monica Jalloh RN - 11/21/2020 7:48 AM EST Cmm Inspector in to see patient for wound vac dressing change. Cmm Inspector removed intact vac dressing as described to medical writer by Dr. Cherry. Cmm Inspector removed one piece black foam from top of dressing. Cmm Inspector removed one piece black foam packed from 9 oclock area over to undermining in 2-4 oclock area. Cmm Inspector removed one piece black foam from 7 oclock area. There remains one piece black foam in 11 oclock area (toward medial ankle) that is adhered to tunneling and exposed bone and could not be removed intact. Cmm Inspector placed ns moist gauze dressing temporarily until discusses with podiatry. * Rossana Caldwell RN - 11/19/2020 2:59 PM EST IV team consulted for PICC placement. Chart and history reviewed. PICC insertion explained to patient , agreed to procedure. Single lumen PICC inserted following Tye Protocol into cephalic vein. PICC trimmed at [...] deficit. The patient's home setup is a public relations account supervisor, limitations of family / caregiver support is a barrier for return to prior level of function. The patient's education level is a public relations account supervisor, awareness of own capacity and performance is a public relations account supervisor to return to prior level of function. [...] foot unclear and OT to clarify with risk developer post evaluation this date. Home Living Type of Home: House Home Layout: One level, Stairs to enter with rails Bathroom Shower/Tub: Tub/shower unit Bathroom Toilet: Standard(Low toilet per pt.) Home Equipment: (Crutches) Additional Comments: Pt prefers to be called Carlitos . Prior Level of Function Level of [place]: Independent with ADLs and functional transfers Lives [...] HR) Prior Level of Function Level of [place]: Independent with ADLs and functional transfers Lives [...] Jalloh RN - 11/08/2020 2:09 PM EST Cmm Inspector in to see patient for wound vac [...] patient in patient'sroom. 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 Patient reports that he resides at [...] Patient Name: More Kingsley Jr. MR #: [id number] : 1965 Physicians: Cheng Staples CNP (Family); [...] file Gets together: Not on file Attends jew service: Not on file Active member of [...] 15-20 maintain Follow-up labs, including cultures Follow-up risk developer Patient needs incision and drainage of left foot abscess Consider MRI of the left foot Dressing according to risk developer recommendation Endocrinology evaluation for adequate blood sugar [...] PM EST Associated Order(s): IP CONSULT TO ENGRAVINGS POLISHER Met with pt for diabetes education. Pt [...] to feel like heis going to vomit. 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 He mentions often going to [employer] & ordering a double cheeseburger with a medium Sudanese macias and medium diet soda. Occasional milk [...] pharmacokinetics Continuous Infusions: lactated Ringers 100 mL/hr (11/05/208) Estimated Energy Needs Total Energy Estimated Needs: 1950 kcals/day Method for Estimating Needs: MSJ x 1.3AF -500 kcals/day to promote 1# weight loss/week Total Protein Estimated Needs: 81-97 gms/day Method for Estimating Needs: 1.0-1.2 gms/kg adjusted BW Blanca Miles RDN, LD Office * Braeden Conte DPM - 11/06/2020 10:58 AM EST Podiatry Inpatient Consult 11/06/2020 Braeden Conte DPM [facility] Patient: More Kingsley Date of [...] the last 2 weeks. Patient is from [facility] where he was transferred down here to be evaluated and treated. Patient lost his right forefoot 3 years ago due to infection. 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 History of Present Illness: More Kingsley is a 54 y.o. male presenting from [facility] with complaint of left midfoot [...] More Kingsley Admit Date: 11/05/2020 MR #: [id number] : 1965 Current location: [facility] Physicians: Cheng Staples CNP (Family); [...] * [facility] - Slyfarnaz Tricia, GAS OR PETROLEUM OPERATOR - 11/19/2020 9:16 AM EST PHYSICAL [...] (55 y.o.) Date of Service: 11/18/2020 CSN: [id number] Procedure(s): INCISION AND DRAINAGE FOOT/ANKLE with Application of Wound Vac Pre-Operative Diagnoses: * Abscess of left ankle Post-Operative Diagnoses: * Same as Pre-Op Diagnosis Surgeon(s) and Role: * Leanne Cherry DPM - Primary Anesthesiologist: Almas Gutierrez MD SEAM TAPER MACHINE: Kathrine Page CRNA Anesthesiologist Quality Improvement Specialist: SUNDEEP Machado Pulling Machine Operator: Kathrine Rice RN; Paola German RN [...] Odor None 11/18/20 0800 Wound Bed Characteristics Green Level 11/17/20 0815 Debi-wound Assessment Brown;Scaly 11/16/20 0506 [...] (55 y.o.) Date of Service: 11/11/2020 CSN: [id number] Procedure(s): DEBRIDEMENT AND DRESSING CHANGE APPLICATION WOUND VAC Pre-Operative Diagnoses: * Abscess, left foot Post-Operative Diagnoses: * Same as Pre-Op Diagnosis Surgeon(s) and Role: * Leanne Cherry DPM - Primary Anesthesiologist: Javi Barriga MD SEAM TAPER MACHINE: Jasmine Gauthier CRNA Anesthesiologist Quality Improvement Specialist: SUNDEEP Machado Pulling Machine Operator: Kathrine Rice RN; Evie Hunt RN [...] Rueda, TAMARAN, RN Clinical Documentation Improvement [facility] [phone] After business hours you may contact Arianna Hooks at [phone] (Weekdays until 10 PM and weekends 8 [...] Team Status: Inactive Member Role Status Dates hCeng Staples Primary Care Provider Active Sta rt: [...] Jonny Zhu MD [address] [place] [phone] [facility] - [facility] Cheng Staples NP [address] [place] [phone] [facility] Cheng Staples NP [address] [place] [address] [facility]/24 Team Status: Inactive Member Role Status [...] 12, 2024Team MemberRelationshipSpecialtyStart DateEnd Date Cheng Staples APRN-IN STORE MARKETING REPRESENTATIVE PCP - GeneralNurse Practitioner03/05/25Team MemberRelationshipSpecialtyStart Date End Date Cheng Staples APRN-CNP PCP - GeneralNurse Practitioner03/05/25Team MemberRelationshipSpecialtyStart Date End Date Art Freeman DO [address] [facility], [address] [place] [address] PCP - GeneralFamily Medicine04/26/25Team MemberRelationshipSpecialtyStart DateEnd Date Cheng Staples, 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-IN STORE MARKETING REPRESENTATIVE PCP - GeneralNurse Practitioner03/05/25Team MemberRelationshipSpecialtyStart Date End Date Art Freeman DO [address] [facility], [address] [place] [address] [facility] - [facility]04/26/25Team MemberRelationshipSpecialtyStart DateEnd Date Art Freeman DO [address] [facility], [facility] [address] [place] [address] PCP - Generalmily Medicine04/26/25Team MemberRelationshipSpecialtyStart DateEnd Date Art Freeman DO [address] [facility], [facility] [address], [place] [address] PCP - Generalmily Medicine04/26/25Team MemberRelationshipSpecialtyStart DateEnd Date Art Freeman DO [address] [facility] [place] [address] PCP - Generalmily Medicine04/26/25 Team Status: Inactive Member Role Status Dates Cheng Staples Primary Care Provider Active Sta rt: June 28, 2025 End: June 28, 2025Cathy Ramirez B[employer] HAND-CAttending ProviderActiveStart: June 28, 2025 End: June 28, [...] MemberRelationshipSpecialtyStart DateEnd Date Art Freeman DO [address] [facility], [facility] [address], [place] [address] PCP - GeneralFamily Medicine04/26/25Team MemberRelationshipSpecialtyStart DateEnd Date Art Freeman DO [address] [facility], [place] [address] PCP - GeneralFamily Medicine04/26/25 Team Status: Active Member Role Status Dates NON STAFF Primary Care Provider Active Team Status: Inactive Member Role Status Dates Chan Quintanilla MD Attending Provider Active Start: July 09, 2025 End: July 09, 2025NON STAFFPrimary Care ProviderActiveStart: July 09, 2025 End: July 09, 2025Team MemberRelationshipSpecialtyStart DateEnd Date Art Freeman DO [address] [facility], [address] [place] [address] PCP - GeneralFamily Medicine04/26/25Team MemberRelationshipSpecialtyStart DateEnd Date Art Freeman DO [address] [facility], [address] [place] [address] PCP - GeneralFamily Medicine04/26/25Team MemberRelationshipSpecialtyStart DateEnd Date Art Freeman DO [address] [facility], [address] [place] [address] PCP - [facility] Medicine04/26/25Team MemberRelationshipSpecialtyStart DateEnd Date Art Freeman DO [address] [facility], [place] [address] PCP - [facility]04/26/25Team MemberRelationshipSpecialtyStart DateEnd Date Art Freeman, [address] [facility], [place] [address] PCP - [facility]04/26/25 Team Status: Inactive Member Role [...] MemberRelationshipSpecialtyStart DateEnd Date Art Freeman DO [address] [facility], [address] [place] [address] [facility] - [facility]04/[facility]/25 Team Status: Active Member Role/Relationship Status Dates NON STAFF Primary Care Provider Active Team Status: Inactive Member Role/Relationship Status Dates Cheng Staples , [employer] Primary Care Provider Active Start: June 28, 2025 End: June 28, 2025Rory Pardo ProviderActiveStart: June 28, 2025 End: June 28, 2025 Team Status: Inactive Member Role/Relationship Status Dates Cheng Staples [employer] Primary Care Provider Active Start: June 28, [...] MemberRelationshipSpecialtyStart DateEnd Date Art Freeman DO [address] [facility], [address] [place] [address] PCP - [facility]04/26/25 Goals (unrecognized section and content) Goals may be documented in a n alternate section Source Comments (unrecognize d section and content) In the event this informatio n is protected by the Federal Confidentiality of Alcohol and Drug Abuse Patient Records regulations: The Federal rules restrict any use of the information to criminally investigate or prosecute any alcohol or drug abuse patient.[facility]In the event this information is protected by the Federal Confidentiality of Alcohol and Drug Abuse Patient Records regulations: The Federal rules restrict any use of the information to criminally investigate or prosecute any alcohol or drug abuse patient.[facility] HospitalIn the event this information is protected by the Federal Confidentiality of Alcohol and Drug Abuse Patient Records regulations: The Federal rules restrict any use of the information to criminally investigate or prosecute any alcohol or drug abuse patient.[facility] HospitalIn the event this information is protected by the Federal Confidentiality of Alcohol and Drug Abuse Patient Records regulations: The Federal rules restrict any use of the information to criminally investigate or prosecute any alcohol or drug abuse patient.[facility] HospitalIn the event this information is protected by the Federal Confidentiality of Alcohol and Drug Abuse Patient Records regulations: The Federal rules restrict any use of the information to criminally investigate or prosecute any alcohol or drug abuse patient.[facility] HospitalIn the event this information is protected by the Federal Confidentiality of Alcohol and Drug Abuse Patient Records regulations: The Federal rules restrict any use of the information to criminally investigate or prosecute any alcohol or drug abuse patient.[facility] HospitalIn the event this information is protected by the Federal Confidentiality of Alcohol and Drug Abuse Patient Records regulations: The Federal rules restrict any use of the information to criminally investigate or prosecute any alcohol or drug abuse patient.[facility] FOR RECORDS PERTAINING TO PATIENTS WHO [...] BE BASED ON THE PRIMARY CLINICAL RECORDS. [facility]. provides no warranty or guarantee of the accuracy or completeness of information in this document.
== END 2025-10-31 10:51 | disposition home or self-care (01) ==
LOC: WC 10:50
PROVIDERS: PCP Family Medicine; Visit Provider Physician Assistant
DX: E11.621 Type 2 diabetes mellitus with foot ulcer (principal); L97.415 Non-pressure chronic ulcer of right heel and midfoot with muscle involvement without evidence of necrosis
CPT/HCPCS: A6213; G0463